=== PATIENT | female | born 1935 | race Caucasian/White ===

== ENCOUNTER 2017-11-24 16:04 | Emergency (ER) | payer MEDICARE, OTHER ==
[~2017-11-24] VITALS: Ht 165.1 cm; Wt 81.2 kg
[~2017-11-24 16:04] MED LIST: AMLODIPINE BESYL5 MG PO; ASPIRIN EC81 MG PO; B-121000 MC2 PO; BENADRYL25 MG PO; BIOTIN10 MG PO; BIOTIN300 MCG PO; BUSPIRONE HCL10 MG PO; CALCIUM500 M1 PO; CEPHALEXIN500 MG PO; CITRACAL + D M1 EACH PO; CITRACAL-VIT D1 EAC2 PO; CLARITIN10 M2 PO; COSAMIN DS CAP1 EAC1 PO; COSAMIN DS TAB1 EACH PO; FUROSEMIDE20 MG PO; GABAPENTIN100 MG PO; GARLIC OIL1000 MG PO; GARLIC1 EACH PO; L-LYSINE500 M1 PO; LEVOTHYROXINE125 MCG PO; LEXAPRO10 MG PO; LISINOPRIL10 MG PO; LUNESTA3 MG PO; MELATONIN3 MG PO; MELATONIN5 M2 PO; METOPROLOL SUCC25 MG PO; MIRALAX119 GM PO; NORCO 5-325 TA1 EACH PO; NOVAFERRUM125 MG/5 M PO; OCUVITE TABLET1 EAC1 PO; OMEPRAZOLE20 MG PO; PEPCID40 MG PO; SERTRALINE HCL50 MG PO; SLOW-MAG71.5 MG PO; SYNTHROID88 MCG PO; TRICOR145 MG PO; VITAMIN D5000 UNIT PO
[2017-11-24] MEDS ORDERED: LIPITOR40 MG PO (16:48)
[2017-11-24] MEDS ORDERED: NORCO 7.5-3251 EACH PO (16:50)
--- NOTE | 2017-11-24 20:47 | EKG ---
[facility] [address] [facility] [place] [address] Signed Sinus bradycardia with premature atrial complexes Possible Left atrial enlargement Borderline ECG When compared with ECG of 18-SEP-2016 11:57, No significant change was found Confirmed by KAVON DE GUZMAN MD ([id number]) on 11/24/2017 8:47:47 PM Electronically Signed By: KAVON DE GUZMAN MD 11/24/17 2047 PATIENT NAME: PARMINDERJACLYNMARGARET ACOSTAE Electrocardiogram DATE OF : 39 PHYSICIAN: KAVON DE GUZMAN MD REPORT #: [id number] REPORT IS CONFIDENTIAL AND NOT TO BE RELEASED WITHOUT AUTHORIZATION
== END 2017-11-24 17:40 | disposition home or self-care (01) ==
LOC: ED 16:04
DX: R41.0 Disorientation, unspecified (principal); R07.89 Other chest pain; T42.6X5A Adverse effect of other antiepileptic and sedative-hypnotic drugs, initial encounter; G47.00 Insomnia, unspecified; Z87.891 Personal history of nicotine dependence; Z91.041 Radiographic dye allergy status; Z88.0 Allergy status to penicillin; Z88.6 Allergy status to analgesic agent; Z79.82 Long term (current) use of aspirin; Z79.899 Other long term (current) drug therapy
CPT/HCPCS: 71045; 80048; 84484; 85025; 93005; 93010; 99285

== ENCOUNTER 2018-08-01 15:28 | Emergency (ER) | payer MEDICARE, OTHER ==
[~2018-08-01] VITALS: Ht 165.1 cm; Wt 83.5 kg
--- OUTSIDE RECORDS SUMMARY | ~2018-08-01 | XMS | Clinical Summary ---
Demographics + + + | Address | [address] | | | [place] [address] | + + + | Home Phone | | + + + | Preferred Language | Unknown | + + + | Marital Status | Single | + + + | Druze Affiliation | Unknown | + + + | Race | Unknown | + + + | Ethnic Group | Other Race | + + + Author + + + | Author | NON REVENUE LOCATIONS | + + + | Organization | NON REVENUE LOCATIONS | + + + | Address | Unknown | + + + | Phone | Unavailable | + + + Support + + +---------+ + | Name | Relationship | Address | Phone | + + +---------+ + | NONE,NONE | ECON | Unknown | Unavailable | + + +---------+ + Care Team Providers + +------+ + | Care Realty Specialist Name | Role | Phone | + +------+ + PP | Unavailable | + +------+ + Source Comments KULDIP is fully live on both [facility] Ambulatory and [facility] InPatient.[facility] Allergies Not on File Current Medications Not on file Active Problems Not on file Social History + +-------+ +--------+------+ | Tobacco [...] on file | | + + + Plan of Treatment + + + + + | Health Maintenance | Due Date | Last Done | Comments | + + + + + | Pneumococcal (Adult) | | | | | (1 of 2 - PCV13) | 3 | | | + + + + + | Influenza (Flu) | | | | | vaccination (#1) | 8 | | | + + + + + Results Not on filefrom Last 3 Months Insurance + +--------+ +--------+ + + | Payer | Benefi | Subscriber | Type | Phone | Address | | | t Plan | ID | | | | | | / | | | | | | | Group | | | | | + +--------+ +--------+ + + | MEDICARE | MEDICA | xxxxxxxxxx | Medica | [phone]- | [address] | | | RE A & | | re | [phone] | [place] [address] | | | B | | | | | + +--------+ +--------+ + + | MODA | MODA | xxxxxxxxx | PPO | [phone] [address] [address] | | | [place] | | | [phone] | [facility] [place] [address] | | | [place] | | | | | + +--------+ +--------+ + + + +--------+ +--------+ + + | Guarantor Name | Accoun | Relation to | Date | Phone | Billing Address | | | t Type | Patient | of | | | | | | | | | | + +--------+ +--------+ + + | JACLYN ZURITA | Person | Self [birth year] | Home: | [address] | | | al/Fam | | [phone] | [phone] | [place] [address] | | | saba | | | [address] | | + +--------+ +--------+ + +"
--- OUTSIDE RECORDS SUMMARY | ~2018-08-01 | XMS | Encounter Summary ---
Demographics + + + | Address | [address] | | | [place] [address] | + + + | Home Phone [...] | Author | [facility] | | | and [place] | + + + | Organization | [facility] | | | and [place] | + + + | Address | Unknown | + + + | Phone | Unavailable | + + + Support + + + + + | Name | Relationship | Address | Phone | + + + + + | Osmin Jackson | ECON | [address] | | | | | [place] [address] | | + + + + + | Hunter Jackson | ECON | [place], [place] | | + + + + + | Wes Jackson | ECON | [place], [place] | | + + + + + | Oziel Jackson | ECON | [place] | | + + + + + Care Team Providers + +------+ + | Care Senior Court Office Assistant Name | Role | Phone | + [...] Description | +--------+---------+ + + + | 07/27/ | Office | PM [place] | Ulysses Jensen, | Arthritis of | | 2019 | Visit | ORTHOPEDIC SURGERY | MD [address] [facility] | carpometacarpal | | | | [address] [facility] | [place], [place] | (CMC) joint of right | | | | [place], [place] | [address] | thumb (Primary Dx); | | | | [address] | | Rotator cuff tear | | | | [phone] | | arthropathy of right | | [...] + +---------+ + | Alcohol Use | Drinks/We | oz/Week | Comments | | | ek | | | + + +---------+ + | No | 0 | 0.0 | | | | Standard | | | | | drinks or | | | | | | | | | | equivalen | | | | | t | | | + + +---------+ + + + + | Sex Assigned at | Date Recorded | | | | + + + | Not on file | | + + + as of this encounter Last Filed Vital Signs + + + + | Vital Sign | Reading | Time Taken | + + + + | Blood Pressure | - | - | + + + + | Pulse | - | - | + + + + | Temperature | - | - | + + + + | Respiratory Rate | - | - | + + + + | Oxygen Saturation | - | - | + + + + | Inhaled Oxygen | - | - | | Concentration | | | + + + + | Weight | 82.6 kg (182 lb) | 07/27/2018 1103 PDT | + + + + | Height | 165.1 cm (5' 5") | 07/27/2018 1103 PDT | + + + + | Body Mass Index | 30.29 | 07/27/2018 1103 PDT | + + + + in this encounter Progress Notes Ulysses Jensen MD - 07/27/2018 1130 PDTPatient returns and wishes to have right shoulder and right first cmc injections Under sterile conditions today I injected her first cmc joint right thumb with celestone 1/ 2 cc and naropin 1/2 cc Under sterile conditions I then injected her right shoulder subacromial space with kenalog 40mg and naropin 3cc Will return as neededin this encounter Plan of Treatment +--------+---------+ + + + | Date | Type | Specialty | Care Team | Description | +--------+---------+ + + + | 10/28/ | Office | Orthopedic Surgery | Ulysses Jensen, | | | 2018 | Visit | | MD Danny FLANNERY | | | | | | [place] | | | | | | [address] | | | | | | | | +--------+---------+ + + + | 11/30/ | Office | Cardiology | Yesi, | | | 2019 | Visit | | JOSE ALBERTO Linder [address] | | | | | | [place], | | | | | | [place] [address] | | | | | | [phone] | | | | | | | | +--------+---------+ + + + as of this encounter Visit Diagnoses + + | Diagnosis | + + | Arthritis of carpometacarpal (CMC) joint of right thumb - Primary | + + | Rotator cuff tear arthropathy of right shoulder | + + | Traumatic arthropathy, shoulder region | + + Administered Medications + +--------+ +------+------+ + | Medication Order | MAR | Action | Dose | Rate | Site | | | Action | Date | | | | + +--------+ +------+------+ + | betamethasone (CELESTONE | Given | | 6 mg | | Other | | SOLUSPAN) injection 6 mg 6 mg, | | 9 11:37 | | | (Comment | | Intramuscular, ONCE, 07/27/18 | | PDT | | | ) | | at 1200, For 1 dose, Shake well. | | | | | | | Not for IV use. | | | | | | + +--------+ +------+------+ + +---+---+ | | | +---+---+ + +-------+ +-------+---+ + | triamcinolone acetonide | Given | | 40 mg | | Shoulder | | (KENALOG-40) 40 mg/mL injection | | 9 11:37 | | | -Right | | 40 mg 40 mg, Intra-articular, | | PDT | | | | | ONCE, 07/27/18 at 1200, For 1 | | | | | | | dose, Shake well. Not for IV use. | | | | | | + +-------+ +-------+---+ + +---+---+ | | | +---+---+ in this encounter
--- OUTSIDE RECORDS SUMMARY | ~2018-08-01 | XMS | Encounter Summary ---
Demographics + + + | Address | [address] | | | [place] [address] | + + + | Home Phone [...] + | Author | [facility] | | | and [place] | + + + | Organization | [facility] | | | and [...] | | | | | [place] [address] | | + + + + + | Hunter Jackson | ECON | [place], [place] | | + + + + + | Wes Jackson | ECON | [place], [place] | | + + + + + | Oziel Jackson | ECON | [place] | | + + + + + Care Team Providers + +------+ + | Care Receptionist Scheduler Name | Role | Phone | [...] + + | 06/01/ | Office | [facility] [place] | Yesi, | TIA; Valvular heart | | 2019 | Visit | CARDIOLOGY [address] | JOSE ALBERTO Linder [address] | disease; Epistaxis; | | | | [place], | [place], | Murmur; Essential | | | | [place] [address] | [place] [address] | hypertension with | | | | [phone] | [phone] | goal blood pressure | | | | | | less than 130/80; | | | | | | Coronary artery | | | | | | disease involving | | | | | | [place] coronary | | | | | | artery of [place] | | | | | | heart with unstable | | | | | | angina pectoris | | | | | | (FORMERLY [facility]); Chest pain, | | | | | [...] | Blood Pressure | 140/58 | 06/01/2018 1045 PST | + + + + | Pulse | 53 | 06/01/2018 1045 PST | + + + + | Temperature | - | - | + + + + | Respiratory Rate | 16 | 06/01/2018 1045 PST | + + + + | Oxygen Saturation | - | - | + + + + | Inhaled Oxygen | - | - | | Concentration | | | + + + + | Weight | 82.8 kg (182 lb 8.7 | 06/01/2018 1045 PST | | | oz) | | + + + + | Height | 165.1 cm (5' 5") | 06/01/2018 1045 PST | + + + + | Body Mass Index | 30.38 | 06/01/2018 1045 PST | + + + + in this encounter Progress Notes Niyah Key ARNP - 06/01/2018 1045 PSTFormatting of this note may be different from the original. PATIENT NAME: Soumya Jackson [...] cervical Cervical radiculopathy Coronary artery disease involving [place] coronary artery of [place] heart with unstable angina pectoris Stress hyperglycemia [...] RESULTS reviewed during visit today primarily from [facility]: LIPID Lab Results Component Value [...] BNPEX 63 09/18/2016 I reviewed records from [facility] for office visit on 04/2018 whic h is summarized in the HPI. RESULTS- I reviewed reports from [facility]: No results found. Above data and testing is reviewed this visit; testing below is historical data unless othe rwise specified. ASSESSMENT: 1. Coronary artery disease A. Seen at [facility] they had EKG and sent her home stating it was GERD B. Seen in the emergency room at [facility] for chest pain. e was schedule for stress test and discharged home. C. Stress Test 05/16/16, is maximal asymptomatic stress test, [facility] very poor function status, achieving maximal [...] central AI, no , trace TR, trace MD, normal aorta other than mild calcification at [...] is in class II of th e [place] [employer] functional class. There are no [...] this chart may have been created with TrueFacet voice recognition software. Occasi onal wrong-word or sound-alike substitutions may have occurred due to the inherent doe itations of voice recognition software. Please read the chart carefully and recognize, using context, where these substitutions have occurred. in this encounter Plan of Treatment +--------+---------+ + + + | Date | Type | Specialty | Care Team | Description | +--------+---------+ + + + | 10/28/ | Office | Orthopedic Surgery | Ulysses Jensen, | | | 2018 | Visit | | MD Danny PARHAM | | | | | | [place] | | | | | | [address] | | | | | | | | +--------+---------+ + + + | 11/30/ | Office | Cardiology | Yesi, | | | 2018 | Visit | | JOSE ALBERTO Linder [address] | | | | | | [place], | | | | | | [place] [address] | | | | | | [phone] | | | | | | | | +--------+---------+ + + + as of this encounter Procedures + +--------+ + + + | Procedure Name | Priori | Date/Time | Associated Diagnosis | Comments | | | ty | | | | + +--------+ + + + | ECG 12 LEAD | Routin | 06/01/2018 | Essential | Results for this | | | e | 1109 PST | hypertension with | procedure are in the | | | | | goal blood pressure | results section. | | | | | less than 130/80 | | | | | | Coronary artery | | | | | | disease involving | | | | | | [place] coronary | | | | | | artery of [place] | | | | | | heart with unstable | | | | | | angina pectoris | | | | | | (FORMERLY [facility]) Chest pain, | | | | | | unspecified type | | + +--------+ + + + in this encounter Results ECG 12 lead (06/01/2018 1109) + + + + + | Component | Value | Ref Range | Performed At | + + + + + | VENTRICULAR RATE EKG | 53 | BPM | [facility] | + + + + + | ATRIAL RATE | 53 | BPM | [facility] | + + + + + | P-R INTERVAL | 140 | ms | [facility] | + + + + + | QRS DURATION | 88 | ms | [facility] | + + + + + | Q-T INTERVAL | 442 | ms | [facility] | + + + + + | Q-T INTERVAL | 414 | ms | [facility] | | (CORRECTED) | | | | + + + + + | P WAVE AXIS | 57 | degrees | [facility] | + + + + + | QRS AXIS | 57 | degrees | [facility] | + + + + + | T AXIS | 67 | degrees | [facility] | + + + + + | INTERPRETATION TEXT | Sinus | | [facility] | | | bradycardiaPossible Left | | | | | atrial | | | | | enlargementBorderline | | | | | ECGWhen compared with | | | | | ECG of 16-OCT-2017 | | | | | 16:23,premature | | | | | supraventricular | | | | | complexes are no longer | | | | | presentNonspecific T | | | | | wave abnormality no | | | | | longer evident in | | | | | Inferior leadsT wave | | | | | inversion less evident | | | | | in Anterolateral | | | | | leadsConfirmed by | | | | | CHRISTOPHER SIMMS MD | | | | | [id number]) on 06/01/2018 | | | | | 4:18:00 PM | | | + + + + + + + + | Narrative | Performed At | + + + | | | + + + + +---------+ + + | Performing | Address | City/State/Zipcode | Phone Number | | Organization | | | | + +---------+ + + | [facility] | | | | + +---------+ + + in this encounter Visit Diagnoses + + | Diagnosis | + + | TIA | + + | Unspecified transient cerebral ischemia | + + | Valvular heart disease | + + | Endocarditis, valve unspecified, unspecified cause | + + | Epistaxis | + + | Murmur | + + | Undiagnosed cardiac murmurs | + + | Essential hypertension with goal blood pressure less than 130/80 | + + | Coronary artery disease involving [place] coronary artery of [place] heart with unstable | | angina pectoris (HCC) | + + | Chest pain, unspecified type | + + | Hyperlipidemia, mixed | + + | Mixed hyperlipidemia | + +
--- OUTSIDE RECORDS SUMMARY | ~2018-08-01 | XMS | Encounter Summary ---
Demographics + + + | Address | [address] | | | [place] [address] | + + + | Home Phone [...] + | Author | [facility] | | | and [place] | + + + | Organization | [facility] | | [...] | | | | | [place] [address] | | + + + + + | Hunter Jackson | ECON | [place], [place] | | + + + + + | Wes Jackson | ECON | [place], [place] | | + + + + + | Oziel Jackson | ECON | [place] | | + + + + + Care Team Providers + +------+ + | Care Inspector Soldering Name | Role | Phone | + [...] + + | 05/29/ | Telephone | [facility] | Yesi | JENELLE | | 2019 | | [place] [address] | JOSE ALBERTO Linder [address] | | | | | [place], | [place], | | | | | [place] [address] | [place] [address] | | | | | [phone] | [phone] | | | | | | | [...] + + + as of this encounter Plan of Treatment +--------+---------+ + + + | Date | Type | Specialty | Care Team | Description | +--------+---------+ + + + | 10/28/ | Office | Orthopedic Surgery | Ulysses Jensen, | | | 2018 | Visit | | MD Danny FLANNERY | | | | | | [place] | | | | | | [address] | | | | | | | | +--------+---------+ + + + | 11/30/ | Office | Cardiology | Yesi, | | | 2018 | Visit | | JOSE ALBERTO Linder [address] | | | | | | [place], | | | | | | [place] [address] | | | | | | [phone] | | | | | | | | +--------+---------+ + + + as of this encounter Visit Diagnoses Not on filein this encounter"
--- OUTSIDE RECORDS SUMMARY | ~2018-08-01 | XMS | Encounter Summary ---
Demographics + + + | Address | [address] | | | [place] [address] | + + + | Home Phone [...] Author | [facility] | | | and [place] | + + + | Organization | [facility] [...] | | | | | [place] [address] | | + + + + + | Hunter Jackson | ECON | [place], [place] | | + + + + + | Wes Jackson | ECON | [place], [place] | | + + + + + | Oziel Jackson | ECON | [place] | | + + + + + Care Team Providers + +------+ + | Care Africana Studies Professor Name | Role | Phone | + +------+ + | Kellie Gunderson | PCP | | + +------+ + Encounter Details +--------+ + + + + | Date | Type | Department | Care Team | Description | +--------+ + + + + | 06/01/ | Abstract | [facility] | Yesi, | | | 2018 | | [address] | JOSE ALBERTO [address] | | | | | [place], | [place], | | | | | [place] [address] | [place] [address] | | | | | [phone] | [phone] | | | | | | | [...] W | | | | | | [place] | | | | | | [place] [address] | | | | | | [phone] | | | | | | | [...] for this | | | e | 0000 PST | | procedure are in the | | | | | | results section. | + +--------+ + + + | EXTERNAL LAB: | Routin | 05/30/2018 | | Results for this | | GLUCOSE | e | 0000 PST | | procedure are in the | | | | | | results section. | + +--------+ + + + | EXTERNAL LAB: ALT | Routin | 05/30/2018 | | Results for this | | | e | 0000 PST | | procedure are in the | | | | | | results section. | + +--------+ + + + | EXTERNAL LAB: AST | Routin | 05/30/2018 | | Results for this | | | e | 0000 PST | | procedure are in the | | | | | | results section. | + +--------+ + + + | EXTERNAL LAB: | Routin | 05/30/2018 | | Results for this | | ALKALINE PHOSPHATASE | e | 0000 PST | | procedure are in the | | | | | | results section. | + +--------+ + + + | EXTERNAL LAB: | Routin | 05/30/2018 | | Results for this | | BILIRUBIN, TOTAL | e | 0000 PST | | procedure are in the | | | | | | results section. | + +--------+ + + + | EXTERNAL LAB: | Routin | 05/30/2018 | | Results for this | | ALBUMIN | e | 0000 PST | | procedure are in the | | | | | | results section. | + +--------+ + + + | EXTERNAL LAB: | Routin | 05/30/2018 | | Results for this | | PROTEIN, TOTAL | e | 0000 PST | | procedure are in the | | | | | | results section. | + +--------+ + + + | EXTERNAL LAB: | Routin | 05/30/2018 | | Results for this | | CALCIUM | e | 0000 PST | | procedure are in the | | | | | | results section. | + +--------+ + + + | EXTERNAL LAB: CARBON | Routin | 05/30/2018 | | Results for this | | DIOXIDE | e | 0000 PST | | procedure are in the | | | | | | results section. | + +--------+ + + + | EXTERNAL LAB: | Routin | 05/30/2018 | | Results for this | | CHLORIDE | e | 0000 PST | | procedure are in the | | | | | | results section. | + +--------+ + + + | EXTERNAL LAB: | Routin | 05/30/2018 | | Results for this | | POTASSIUM | e | 0000 PST | | procedure are in the | | | | | | results section. | + +--------+ + + + | EXTERNAL LAB: SODIUM | Routin | 05/30/2018 | | Results for this | | | e | 0000 PST | | procedure are in the | | | | | | results section. | + +--------+ + + + | EXTERNAL LAB: CBC | Routin | 05/30/2018 | | Results for this | | | e | 0000 PST | | procedure are in the | | | | | | results section. | + +--------+ + + + | EXTERNAL LAB: | Routin | 05/30/2018 | | Results for this | | TRIGLYCERIDES | e | 0000 PST | | procedure are in the | | | | | | results section. | + +--------+ + + + | EXTERNAL LAB: | Routin | 05/30/2018 | | Results for this | | CHOLESTEROL, HDL | e | 0000 PST | | procedure are in the | | | | | | results section. | + +--------+ + + + | EXTERNAL LAB: | Routin | 05/30/2018 | | Results for this | | CHOLESTEROL, TOTAL | e | 0000 PST | | procedure are in the | | | | | | results section. | + +--------+ + + + | EXTERNAL LAB: | Routin | 05/30/2018 | | Results for this | | CHOLESTEROL, LDL | e | 0000 PST | | procedure are in the | | DIRECT | | | | results section. | + +--------+ + + + | EXTERNAL LAB: EGFR | Routin | 05/30/2018 | | Results for this | | | e | 0000 PST | | procedure are in the | | | | | | results section. | + +--------+ + + + | EXTERNAL LAB: | Routin | 05/30/2018 | | Results for this | | CREATININE | e | 0000 PST | | procedure are in the | | | | | | results section. | + +--------+ + + + | LIPID PANEL | Routin | 05/30/2018 | | Results for this | | | e | 0000 PST | | procedure are in the | | | | | | results section. | + +--------+ + + + | CBC WITH | Routin | 05/30/2018 | | Results for this | | DIFFERENTIAL | e | 0000 PST | | procedure are in the | | | | | | results section. | + +--------+ + + + | COMPREHENSIVE | Routin | 05/30/2018 | | Results for this | | METABOLIC PANEL | e | 0000 PST | | procedure are in the | | | | | | results section. | + +--------+ + + + in this encounter Results CBC with Differential (05/30/2018) + + + + + | Component | Value | Ref Range | Performed At | + + + + + | MCH | 34.0 (A) | 27.0 - 33.0 pg | | + + + + + | MCHC | 33.0 | 30.0 - 36.0 % | | + + + + + | BASOPHILS % | 1.0 | 0.0 - 2.0 % | | + + + + + + + | Specimen | + + | Blood | + + Comprehensive Metabolic Panel (05/30/2018) + +---------+ + + | Component | Value | Ref Range | Performed At | + +---------+ + + | Anion Gap | 15 | 7 - 21 mmol/L | | + +---------+ + + | Bun/Creatinine | 19.7 | 6.0 - 28.6 | | + +---------+ + + | Globulin | 3.7 (A) | 1.8 - 3.5 | | + +---------+ + + | Albumin/Globulin | 1.2 | 1.1 - 2.4 | | | Ratio | | | | + +---------+ + + + + | Specimen | + + | Blood | + + Lipid Panel (05/30/2018) + +-------+ + + | Component | Value | Ref Range | Performed At | + +-------+ + + | VLDL Cholesterol Jaime | 12 | 4 - 40 | | + +-------+ + + | Chol/HDL Ratio | 1.9 | 4.4 | | + +-------+ + + | Non-HDL Cholesterol | 76 | 130 | | + +-------+ + + + + | Specimen | + + | Blood | + + External Lab: BUN (05/30/2018) + +-------+ + + | Component | Value | Ref Range | Performed At | + +-------+ + + | BUN, External | 13 | 6 - 23 | | + +-------+ + + External Lab: Glucose (05/30/2018) + +-------+ + + | Component | Value | Ref Range | Performed At | + +-------+ + + | Glucose, External | 99 | 70 - 100 | | + +-------+ + + External Lab: ALT (05/30/2018) + +-------+ + + | Component | Value | Ref Range | Performed At | + +-------+ + + | ALT, External | 28 | 7 - 52 | | + +-------+ + + External Lab: AST (05/30/2018) + +-------+ + + | Component | Value | Ref Range | Performed At | + +-------+ + + | AST, External | 32 | 13 - 39 | | + +-------+ + + External Lab: Alkaline Phosphatase (05/30/2018) + +-------+ + + | Component | Value | Ref Range | Performed At | + +-------+ + + | ALP, External | 112 | 31 - 130 | | + +-------+ + + External Lab: Bilirubin, Total (05/30/2018) + +-------+ + + | Component | Value | Ref Range | Performed At | + +-------+ + + | Bilirubin, Total, | 0.6 | 0 - 1.2 | | | External | | | | + +-------+ + + External Lab: Albumin (05/30/2018) + +-------+ + + | Component | Value | Ref Range | Performed At | + +-------+ + + | Albumin, External | 4.4 | 3.5 - 5 | | + +-------+ + + External Lab: Protein, Total (05/30/2018) + +-------+ + + | Component | Value | Ref Range | Performed At | + +-------+ + + | Protein, Total, | 8.1 | 6 - 8.3 | | | External | | | | + +-------+ + + External Lab: Calcium (05/30/2018) + +-------+ + + | Component | Value | Ref Range | Performed At | + +-------+ + + | Calcium, External | 9.9 | 8.5 - 10.3 | | + +-------+ + + External Lab: Carbon Dioxide (05/30/2018) + +-------+ + + | Component | Value | Ref Range | Performed At | + +-------+ + + | Carbon Dioxide, | 28 | 19 - 31 | | | External | | | | + +-------+ + + External Lab: Chloride (05/30/2018) + +-------+ + + | Component | Value | Ref Range | Performed At | + +-------+ + + | Chloride, External | 96 | 95 - 112 | | + +-------+ + + External Lab: Potassium (05/30/2018) + +-------+ + + | Component | Value | Ref Range | Performed At | + +-------+ + + | Potassium, External | 4.3 | 3.6 - 5.1 | | + +-------+ + + External Lab: Sodium (05/30/2018) + +-------+ + + | Component | Value | Ref Range | Performed At | + +-------+ + + | Sodium, External | 135 | 132 - 143 | | + +-------+ + + External Lab: CBC (05/30/2018) + + + + + | Component | Value | Ref Range | Performed At | + + + + + | WBC, External | 7.7 | 4.5 - 11 | | + + + + + | HGB, External | 14.4 | 12 - 16 | | + + + + + | HCT, External | 43.3 | 35 - 45 | | + + + + + | PLT, External | 389 | 140 - 440 | | + + + + + | Neutrophils %, | 65.9 | 39 - 80 | | | External | | | | + + + + + | Lymphocytes %, | 20.6 (A) | 24 - 44 | | | External | | | | + + + + + | Monocytes %, | 8.4 | 0 - 12 | | | External | | | | + + + + + | Eosinophils %, | 4.1 | 0 - 6 | | | External | | | | + + + + + | RBC, External | 4.23 | 3.8 - 5.1 | | + + + + + | MCV, External | 102 (A) | 81 - 99 | | + + + + + | RDW, External | 13.1 | 10.5 - 15 | | + + + + + External Lab: Triglycerides (05/30/2018) + +-------+ + + | Component | Value | Ref Range | Performed At | + +-------+ + + | Triglycerides, | 59 | 30 - 150 | | | External | | | | + +-------+ + + + + | Specimen | + + | Blood | + + External Lab: Cholesterol, HDL (05/30/2018) + +-------+ + + | Component | Value | Ref Range | Performed At | + +-------+ + + | HDL Cholesterol, | 82 | 40 mg/dl | | | External | | | | + +-------+ + + + + | Specimen | + + | Blood | + + External Lab: Cholesterol, Total (05/30/2018) + +-------+ + + | Component | Value | Ref Range | Performed At | + +-------+ + + | Cholesterol, Total, | 158 | 200 mg/dl | | | External | | | | + +-------+ + + + + | Specimen | + + | Blood | + + External Lab: Cholesterol, LDL Direct (05/30/2018) + +-------+ + + | Component | Value | Ref Range | Performed At | + +-------+ + + | LDL Cholesterol, | 64 | 100 | | | Direct, External | | | | + +-------+ + + + + | Specimen | + + | Blood | + + External Lab: eGFR (05/30/2018) + +-------+ + + | Component | Value | Ref Range | Performed At | + +-------+ + + | eGFR, External | 86 | 60 | | + +-------+ + + + + | Specimen | + + | Blood | + + External Lab: Creatinine (05/30/2018) + + + + + | Component | Value | Ref Range | Performed At | + + + + + | Creatinine, External | 0.66 (A) | 0.7 - 1.11 | | + + + + + + + | Specimen | + + | Blood | + + in this encounter Visit Diagnoses Not on filein this encounter"
--- OUTSIDE RECORDS SUMMARY | ~2018-08-01 | XMS | Encounter Summary ---
Demographics + + + | Address | [address] | | | [place] [address] | + + + | Home Phone [...] | [facility] | | | and [place] | + + + | Organization | [facility] [...] | | | | | [place] [address] | | + + + + + | Hunter Jackson | ECON | [place], [place] | | + + + + + | Wes Jackson | ECON | [place], [place] | | + + + + + | Oziel Jackson | ECON | [place] | | + + + + + Care Team Providers + +------+ + | Care Cloth Checker Name | Role | Phone | + +------+ + | Kellie Gunderson | PCP | | + +------+ + Encounter Details +--------+ + + + + | Date | Type | Department | Care Team | Description | +--------+ + + + + | 06/01/ | Abstract | [facility] | Yesi, | | | 2018 | | [address] | JOSE AL[address]ERTO [address] | | | | | [place], | [place], | | | | | [place] [address] | [place] [address] | | | | | [phone] | [phone] | | | | | | | [...] [address] | | | | | | [place] [address] | | | | | | [place] [address] | | | | | | [phone] | | | | | | | [...]
--- OUTSIDE RECORDS SUMMARY | ~2018-08-01 | XMS | Encounter Summary ---
Demographics + + + | Address | [address] | | | [place] [address] | + + + | Home Phone [...] | Author | [facility] | | | and [place] | + + + | Organization | [facility] | [...] | | | | | [place] [address] | | + + + + + | Hunter Jackson | ECON | [place], [place] | | + + + + + | Wes Jackson | ECON | [place], [place] | | + + + + + | Oziel Jackson | ECON | [place] | | + + + + + Care Team Providers + +------+ + | Care Freight Shipping Agent Name | Role | Phone | [...] + | 06/25/ | Telephone | [facility] | Yesi, | Other (blood | | 2019 | | CARDIOLOGY [address] | JOSE AL[address]ERTO [address] | pressure low, | | | | [place], | [place], | question about | | | | [place] [address] | [place] [address] | medications) | | | | [phone] | [phone] | | | | | | | [...] Description | +--------+---------+ + + + | 06/19/ | Office | Orthopedic Surgery | Ulysses Jensen, | | | 2018 | Visit | | MD Danny FLANNERY | | | | | | [place] [address] | | | | | | [phone] | | | | | | | | +--------+---------+ + + + | 11/30/ | Office | Cardiology | Yesi, | | | 2018 | Visit | | JOSE ALBERTO [address] | | | | | | [place], | | | | | | [place] [address] | | | | | | [phone] | | | | | | | | +--------+---------+ + + + as of this encounter Visit Diagnoses Not on filein this encounter"
--- OUTSIDE RECORDS SUMMARY | ~2018-08-01 | XMS | Encounter Summary ---
Demographics + + + | Address | [address] | | | [place] [address] | + + + | Home Phone [...] Author | [facility] | | | and [place] | + + + | Organization | [facility] | | [...] | | | | | [place] [address] | | + + + + + | Hunter Jackson | ECON | [place], [place] | | + + + + + | Wes Jackson | ECON | [place], [place] | | + + + + + | Oziel Jackson | ECON | [place] | | + + + + + Care Team Providers + +------+ + | Care Refractory Tile Helper Name | Role | Phone | [...] | pressure low, | | | | [place], | [place], | question about | | | | [place] [address] | [place] [address] | medications) | | | | [phone] | [phone] | | | | | | | [...] STREETER | | | | | | [phone] | | | | | | | | +--------+---------+ + + + | 11/30/ | Office | Cardiology | Yesi, | | | 2018 | Visit | | JOSE ALBERTO [address] | | | | | | [place], | | | | | | [place] [address] | | | | | | [phone] | | | | | | | | +--------+---------+ + + + as of this encounter Visit Diagnoses Not on filein this encounter"
--- OUTSIDE RECORDS SUMMARY | ~2018-08-01 | XMS | Clinical Summary ---
Demographics + + + | Address | [address] | | | [place] [address] | + + + | Home Phone | | + + + | Preferred Language | Unknown | + + + | Marital Status | Single | + + + | Congregation Affiliation [...] Comments [facility] is fully live on both [facility] and [facility] Allergies Not on File Current Medications [...] | Medica | [phone] | [phone] | | | RE A & | | re | [phone] | [place] [address] | | | B | | | | | + +--------+ +--------+ + + | MODA | MODA | [phone] | PPO | [phone] [address] [address] | | | [place] | | | [phone] | [facility] [place] [address] | | | [place] | | | [...] | 1936 | [phone] | [place] [address] | | | saba | | | [phone] | | + +--------+ +--------+ + +"
--- OUTSIDE RECORDS SUMMARY | ~2018-08-01 | XMS | Clinical Summary ---
Demographics + + + | Address | [address] | | | [place] [address] | + + + | Home Phone [...] [address] | | | | | [place] [address] | | + + + + + | Hunter Jackson | ECON | [place], [place] | | + + + + + | Wes Jackson | ECON | [place], [place] | | + + + + + | Oziel Jackson | ECON | [place] | | + + + + + Care Team Providers + +------+ + | Care Middle [employer] Technology Teacher Name | Role | Phone | + +------+ + | Kellie Gunderson | PP | | + +------+ + Allergies + [...] | Other (See Comments) | Medium | 06/27/20 | Duodenal Ulcer | | | | [...] | + + + + + + Current Medications + + +---------+---------+------+------+-------+ | Prescription | Sig. | Disp. | Refills | Star | End | Statu | | | | | | t | Date | s | | | | | | Date | | | + + +---------+---------+------+------+-------+ | L-Lysine HCl 500 | Take 500 mg by mouth | | | 01/10 | | Activ | | MG CAPS | Daily. | | | 07/29 | | e | | | | | | 12 | | | + + +---------+---------+------+------+-------+ | Melatonin | Take 5 mg by mouth | | | 09/1 | | Activ | | (MELATONIN MAXIMUM | Daily as needed. | | | 3/20 | | e | | STRENGTH) 5 MG TABS | | | | 12 | | | + + +---------+---------+------+------+-------+ | magnesium-calcium | Take 71.5-119 mg by | | | 09/1 | | Activ | | carbonate (SLOW-MAG) | mouth Daily. | | | 3/20 | | e | | 71.5-119 MG TBEC | | | | 12 | | | + + +---------+---------+------+------+-------+ | Calcium | TABS Take one by | | | 09/1 | | Activ | | Citrate-Vitamin D | mouth three times | | | 3/20 | | e | | (CITRACAL MAXIMUM | daily. | | | 12 | | | | PO) | | | | | | | + + +---------+---------+------+------+-------+ | Multiple | Take by mouth | | | | | Activ | | Vitamins-Minerals | Daily. | | | | | e | | (OCUVITE ADULT 50+) | | | | | | | | CAPS | | | | | | | + + +---------+---------+------+------+-------+ | vitamin B-12 | Take 1,000 mcg by | | | | | Activ | | (CYANOCOBALAMIN) | mouth Daily. | | | | | e | | 1000 MCG tablet | | | | | | | + + +---------+---------+------+------+-------+ | Cholecalciferol | Take 5,000 Units by | | | 01/10 | | Activ | | (D-5000 PO) | mouth Daily. | | | 07/29 | | e | | | | | | 12 | | | + + +---------+---------+------+------+-------+ | GARLIC | Take 1,000 mg by | | | | | Activ | | | mouth Daily. | | | | | e | + + +---------+---------+------+------+-------+ | BIOTIN PO | Take 500 mg by mouth | | | | | Activ | | | Daily. | | | | | e | + + +---------+---------+------+------+-------+ | diclofenac | Apply 1 g topically | 100 g | 0 | 09/ | | Activ | | (VOLTAREN) 1% [...] | | | | | + + +---------+---------+------+------+-------+ | omeprazole | Take 20 mg by mouth | | | 04/0 | | Activ | | (PRILOSEC) 20 mg | every morning | | | 4/20 | | e | | capsule | (before breakfast). | | | 17 | | | + + +---------+---------+------+------+-------+ | aspirin 81 mg | Take 2 tablets by | 30 | 2 | 06/2 | | Activ | | chewable tablet | mouth Daily. | tablet | | 8/20 | | e | | | | | | 17 | | | + + +---------+---------+------+------+-------+ | gabapentin | Take 300 mg by mouth | | | | | Activ | | (NEURONTIN) 300 mg | once. | | | | | e | | capsule | | | | | | | + + +---------+---------+------+------+-------+ | busPIRone (BUSPAR) | Take 5 mg by mouth | | | 04/0 | | Activ | | 5 mg tablet | Daily. Can take | | | 09/28 | | e | | | twice a day if | | | 18 | | | | | needed | | | | | | + + +---------+---------+------+------+-------+ | | Take 1 tablet by | | | 04/0 | | Activ | | HYDROcodone-acetamin | mouth Daily. Takes | | | 20 | | e | | ophen (NORCO) | 1/2 in the AM and | | | 18 | | | | 7.5-325 mg per | 1/2 in the PM | | | | | | | tablet | | | | | | | + + +---------+---------+------+------+-------+ | atorvaSTATin | TAKE ONE TABLET BY | 90 | 3 | 07/1 | | Activ | | (LIPITOR) 40 mg | MOUTH EVERY DAY IN | tablet | | 7/20 | | e | | tablet | THE EVENING | | | 18 | | | + + +---------+---------+------+------+-------+ | lisinopril | TAKE TWO TABLETS BY | 180 | 3 | 08/3 | | Activ | | (PRINIVIL, ZESTRIL) | MOUTH EVERY DAY | tablet | | 0/20 | | e | | 10 mg tablet | | | | 18 | | | + + +---------+---------+------+------+-------+ | DULoxetine | | | | 08/2 | | Activ | | (CYMBALTA) [address] | | | | 1/20 | | e | | capsule | | | | 18 | | | + + +---------+---------+------+------+-------+ | levothyroxine | | | | 08 | | Activ | | (SYNTHROID) 88 mcg | | | | 09/28 | | e | | tablet | | | | 18 | | | + + +---------+---------+------+------+-------+ | furosemide (LASIX) | Take 20 mg by mouth | | | 10/ | | Activ | | 20 mg tablet | Daily. | | | 07/01 | | e | | | | | | 18 | | | + + +---------+---------+------+------+-------+ | Docusate Calcium | Take 1 tablet by | | | | | Activ | | (STOOL SOFTENER PO) | mouth Daily. | | | | | e | + + +---------+---------+------+------+-------+ | B Complex Vitamins | Take 1 tablet by | | | | | Activ | | (VITAMIN B COMPLEX | mouth Daily. | | | | | e | | PO) | | | | | | | + + +---------+---------+------+------+-------+ | isosorbide | Take 1 tablet by | 30 | 3 | /1 | | Activ | | mononitrate (IMDUR) | mouth Daily. | tablet | | 11/28 | | e | | 30 mg ER tablet | | | | 18 | | | + + +---------+---------+------+------+-------+ | amLODIPine | Take 1 tablet by | 90 | 3 | 06/12 | | Activ | | (NORVASC) 5 mg | mouth Daily. | tablet | | 01/29 | | e | | tablet | | | | 19 | | | + + +---------+---------+------+------+-------+ + + +-------+ +------+------+-------+ | Hospital, Clinic, or | Ordered | Route | Frequency | Star | End | Statu | | Other Facility | Dose | | | t | Date | s | | Administered | | | | Date | | | | Medication | | | | | | | + + +-------+ +------+------+-------+ | triamcinolone | 40 mg | IX | ONCE | 07/10 | 07/10 | Ended | | acetonide | | | | 12/29 | 12/29 | | | (KENALOG-40) 40 | | | | 19 | 19 | | | mg/mL injection 40 | | | | | | | | mgIndications: | | | | | | | | Rotator cuff tear | | | | | | | | arthropathy of right | | | | | | | | shoulder | | | | | | | + + +-------+ +------+------+-------+ | betamethasone | 6 mg | IM | ONCE | 07/10 | 07/10 | Ended | | (CELESTONE SOLUSPAN) | | | | 12/29 | 12/29 | | | injection 6 | | | | 19 | 19 | | | mgIndications: | | | | | | | | Arthritis of | | | | | | | | carpometacarpal | | | | | | | | (CMC) joint of right | | | | | | | | thumb | | | | | | | + + +-------+ +------+------+-------+ Active Problems + + + | Problem [...] function, LVEF by gated SPECT 76 %. 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) | | + + + + + [...] | AI, no , trace TR, trace DC, normal aorta other than mild | | [...] + | Inflammation of blood vessels (HCC) | 08/18/2014 | + + + | [...] | + + + | Lacunar infarction (HCC) | 06/04/2010 | + + + | [...] gated SPECT 76 % by | | Christopher Simms MD.Stress Test 07/16/16, shows persantine EKG [...] | +--------+ + + + + | 07/27/ | Office | | Ulysses Jensen, | Arthritis of | [...] shoulder | +--------+ + + + + | 06/25/ | Telephone | | Yesi, | Other (blood | | 2018 | | | JOSE ALBERTO Linder | pressure low, | | | | | | question about | | | | | | medications) | +--------+ + + + + | 06/01/ | Office | | Yesi, | TIA; Valvular heart | | 2018 | Visit | | JOS EALBERTO Linder | disease; Epistaxis; | | | | | | Murmur; Essential | | | | | | hypertension with | | | | | | goal blood pressure | | | | | | less than 130/80; | | | | | | Coronary artery | | | | | | disease involving | | | | | | [place] coronary | | | | | | artery of [place] | | | | | | heart with unstable | | | | | | angina pectoris | | | | | | ([facility]); Chest pain, | | | | | | unspecified type; | | | | | | Hyperlipidemia, | | | | | | mixed | +--------+ + + + + | 06/01/ | Abstract | | Yesi, | | | 2018 | | | JOSE ALBERTO Linder | | +--------+ + + + + | 05/29/ | Telephone | | Yesi | LABS | | 2018 | | | JOSE ALBERTO Linder | | +--------+ + + + + from Last 3 Months Immunizations + + + + | Name | Dates Previously Given | Next Due | + + + [...] on file | | + + + Last Filed Vital Signs + + + + | Vital Sign | Reading | Time Taken | + + + + | Blood Pressure | 140/58 | 06/01/2018 1045 PST | + + + + | Pulse | 53 | 06/01/2018 1045 PST | + + + + | Temperature | 36.4 C (97.5 F) | 04/28/2017 1318 PST | + + + + | Respiratory Rate | 16 | 06/01/2018 1045 PST | + + + + | Oxygen Saturation | 97% | 07/22/2017 0847 PDT | + + + + | Inhaled Oxygen | - | - | | Concentration | | | + + + + | Weight | 82.6 kg (182 lb) | 07/27/20181102 PDT | + + + + | Height | 165.1 cm (5' 5") | 07/27/20181102 PDT | + + + + | Body Mass Index | 30.29 | 07/27/2018 1103 PDT | + + + + Plan of Treatment +--------+---------+ + + + | Date | Type | Specialty | Care Team | Description | +--------+---------+ + + + | 10/28/ | Office | | Ulysses Jensen, | | | 2018 | Visit | | MD [address] | | | | | | [place] | | | | | | [address] | | | | | | | | +--------+---------+ + + + | 11/30/ | Office | | Yesi, | | | 2018 | Visit | | JOSE ALBERTO Linder [address] | | | | | | [place] | | | | | | [place] [address] | | | | | | [phone] | | | | | | | [...] | | | | | Pneumococcal 65+ | 3 | | | | Low/Medium Risk (1 | | | | | of 2 - PCV13) | | | | + + + + + | Adult Annual | | | | | Wellness Visit | 5 | | | + + + + + | BREAST CANCER | | 11/08/2013, 05/18/2009 | | | SCREENING (MAMM Q2 | 6 | | | | YEARS <50 OR >74 | | | | + + + + + | Colorectal Cancer | | 03/28/2010 | | | Screening | 0 | | | | (Colonoscopy) | | | | + + + + + | Vaccine: Influenza | Completed | 02/27/2018, 02/09/2018, | | | | | 04/24/2017, Additional history | | | | | exists | | + + + + + Procedures + +--------+ + + + | [...] involving | | | | | | [place] coronary | | | | | | artery of [place] | | | | | | heart with unstable | | | | | | angina pectoris | | | | | | ([facility]) Chest pain, | | | | | [...] section. | + +--------+ + + + from Last 3 Months Results ECG 12 lead (06/01/2018 1109) + + + + + | Component | Value | Ref Range | Performed At | + + + + + | VENTRICULAR RATE EKG | 53 | BPM | [facility] [...] SIMMS MD | | | | | ([id number]) on 06/01/2018 | | | | | [...] | + +---------+ + + External Lab: BUN (05/30/2018) + [...] + + | Blood | + + CBC with Differential (05/30/2018) + + + [...] + + | Blood | + + from Last 3 Months Insurance + +--------+ +--------+ + + | Payer | Benefi | Subscriber | Type | Phone | Address | | | t Plan | ID | | | | | | / | | | | | | | Group | | | | | + +--------+ +--------+ + + | MEDICARE | MEDICA | [id number] | Medica | [phone]--- | | | | RE | | re | [phone] | | | | PART A | | | | | | | AND B | | | | | + +--------+ +--------+ + + | MODA | MODA | [id number] | Indemn | [phone] [address] [address] | | | HEALTH | | ity | [phone] | [place] [address] | | | MDCR | | | | | | | SUPPL | | | | | + +--------+ +--------+ + + + +--------+ +--------+ + + | Guarantor Name | Accoun | Relation to | Date | Phone | Billing Address | | | t Type | Patient | of | | | | | | | | | | + +--------+ +--------+ + + | JACLYN JACKSON | Person | Self [birth year] Home: | [address] | | | al/Fam | | [phone] | [phone] | [place] | | | [place] | | | [phone] | [phone] | + +--------+ +--------+ + +
--- OUTSIDE RECORDS SUMMARY | ~2018-08-01 | XMS | Encounter Summary ---
Demographics + + + | Address | [address] | | | [place] [address] | + + + | Home Phone [...] | [facility] | | | and [place] | + + + | Organization | [facility] [...] | | | | | [place] [address] | | + + + + + | Hunter Jackson | ECON | [place], [place] | | + + + + + | Wes Jackson | ECON | [place], [place] | | + + + + + | Oziel Jackson | ECON | [place] | | + + + + + Care Team Providers + +------+ + | Care Food Critic Name | Role | Phone | + [...] 07/27/ | Office | PM [place] | Ulyssse Jensen, | Arthritis of | | 2019 | Visit | ORTHOPEDIC SURGERY | MD [address] [facility] | carpometacarpal | | | | [address] [facility] | [place], [place] | (CMC) joint of right | | | | [place], [place] | [address] | thumb (Primary Dx); | | | | [address] | | Rotator cuff tear | | | | [phone] | | arthropathy of right | | [...] [place]ET[place] | | | | | | [address] | | | | | | | | +--------+---------+ + + + | 11/30/ | Office | Cardiology | Yesi, | | | 2019 | Visit | | JOSE ALBERTO Linder [address] | | | | | | [place], | | | | | | [place] [address] | | | | | | [phone] | | | | | | | [...]
--- OUTSIDE RECORDS SUMMARY | ~2018-08-01 | XMS | Clinical Summary ---
Demographics + + + | Address | [address] | | | [place] [address] | + + + | Home Phone [...] | Author | [facility] | | | and [place] | + + + | Organization | [facility] [...] [address] | | | | | [place] [address] | | + + + + + | Hunter Jackson | ECON | [place], [place] | | + + + + + | Wes Jackson | ECON | [place], [place] | | + + + + + | Oziel Jackson | ECON | [place] | | + + + + + Care Team Providers + +------+ + | Care Cement Side Laster Name | Role | Phone | + [...] function, LVEF by gated SPECT 76 %. 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) | [...] | AI, no , trace TR, trace [place], normal aorta other than mild | | [...] Visit | | JOSE ALBERTO Linder | disease; Epistaxis; | | | | | | Murmur; Essential | | | | | | hypertension with | | | | | | goal blood pressure | | | | | | less than 130/80; | | | | | | Coronary artery | | | | | | disease involving | | | | | | [place] coronary | | | | | | artery of [place] | | | | | | heart with unstable | | | | | | angina pectoris | | | | | | ([facility]); Chest pain, | | | | | [...] [place]ET[place] | | | | | | [address] | | | | | | | | +--------+---------+ + + + | 11/30/ | Office | | Yesi, | | | 2018 | Visit | | JOSE ALBERTO Linder [address] | | | | | | [place] | | | | | | [place] [address] | | | | | | [phone] | | | | | | | [...] involving | | | | | | [place] coronary | | | | | | artery of [place] | | | | | | heart with unstable | | | | | | angina pectoris | | | | | | ([facility]) Chest pain, | | | | | [...] SIMMS MD | | | | | ([id number]) on 06/01/2018 | | | | | [...] + + | MEDICARE | MEDICA | [id number] | Medica | +1--- | | | | RE | | re | [phone] | | | | PART A | | | | | | | AND B | | | | | + +--------+ +--------+ + + | MODA | MODA | [id number] | Indemn | [phone] | [address] [address] | | | HEALTH | | ity | [phone] | [place] [address] | | | MDCR | | | [...] | [place] | | | [phone] | [address] | + +--------+ +--------+ + +
--- OUTSIDE RECORDS SUMMARY | ~2018-08-01 | XMS | Encounter Summary ---
Demographics + + + | Address | [address] | | | [place] [address] | + + + | Home Phone [...] Author | [facility] | | | and [place] | + + + | Organization | [facility] [...] | | | | | [place] [address] | | + + + + + | Hunter Jackson | ECON | [place], [place] | | + + + + + | Wes Jackson | ECON | [place], [place] | | + + + + + | Oziel Jackson | ECON | [place] | | + + + + + Care Team Providers + +------+ + | Care Procurement Director Name | Role | Phone | [...] + + | 06/01/ | Office | [facility] [place] | Yesi, | TIA; Valvular heart | | 2019 | Visit | CARDIOLOGY [address] | JOSE ALBERTO Linder [address] | disease; Epistaxis; | | | | [place], | [place], | Murmur; Essential | | | | [place] [address] | [place] [address] | hypertension with | | | | [phone] | [phone] | goal blood pressure | | | | | | less than 130/80; | | | | | | Coronary artery | | | | | | disease involving | | | | | | [place] coronary | | | | | | artery of [place] | | | | | | heart [...] cervical Cervical radiculopathy Coronary artery disease involving [place] coronary artery of [place] heart with unstable angina pectoris Stress hyperglycemia [...] RESULTS reviewed during visit today primarily from [facility]: LIPID Lab Results Component Value [...] BNPEX 63 09/18/2016 I reviewed records from [facility] for office visit on 04/2018 whic h is summarized in the HPI. RESULTS- I reviewed reports from [facility]: No results found. Above data and testing is reviewed this visit; testing below is historical data unless othe rwise specified. ASSESSMENT: 1. Coronary artery disease A. Seen at [facility] they had EKG and sent her home stating it was GERD B. Seen in the emergency room at [facility] for chest pain. e was schedule for stress test and discharged home. C. Stress Test 05/16/16, is maximal asymptomatic stress test, [facility] very poor function status, achieving [...] central AI, no , trace TR, trace [place], normal aorta other than mild calcification at [...] is in class II of th e [employer] functional class. There are no [...] this chart may have been created with [employer] voice recognition software. Occasi onal wrong-word or [...] [place] | | | | | | [address] | | | | | | | | +--------+---------+ + + + | 11/30/ | Office | Cardiology | Yesi, | | | 2018 | Visit | | JOSE ALBERTO Linder [address] | | | | | | [place], | | | | | | [place] [address] | | | | | | [phone] | | | | | | | [...] involving | | | | | | [place] coronary | | | | | | artery of [place] | | | | | | heart with unstable | | | | | | angina pectoris | | | | | | ([facility]) Chest pain, | | | | | [...] SIMMS MD | | | | | [id number]) on 06/01/2018 | | | | | [...] + + | Coronary artery disease involving [place] coronary artery of [place] heart with unstable | | angina pectoris (HCC) | + + | Chest pain, unspecified type | + + | Hyperlipidemia, mixed | + + | Mixed hyperlipidemia | + +
--- OUTSIDE RECORDS SUMMARY | ~2018-08-01 | XMS | Encounter Summary ---
Demographics + + + | Address | [address] | | | [place] [address] | + + + | Home Phone [...] + | Author | [facility] | | | and [place] | + + + | Organization | [facility] | | [...] | | | | | [place] [address] | | + + + + + | Hunter Jackson | ECON | [place], [place] | | + + + + + | Wes Jackson | ECON | [place], [place] | | + + + + + | Oziel Jackson | ECON | [place] | | + + + + + Care Team Providers + +------+ + | Care Diabetes Specialist Name | Role | Phone | [...] + + | 05/29/ | Telephone | [facility] | Yesi | JENELLE | | 2019 | | [place] [address] | JOSE ALBERTO Linder [address] | | | | | [place], | [place], | | | | | [place] [address] | [place] [address] | | | | | [phone] | [phone] | | | | | | | [...] STREETER | | | | | | [address] | | | | | | | | +--------+---------+ + + + | 11/30/ | Office | Cardiology | Yesi, | | | 2018 | Visit | | JOSE ALBERTO Linder [address] | | | | | | [place], | | | | | | [place] [address] | | | | | | [phone] | | | | | | | | +--------+---------+ + + + as of this encounter Visit Diagnoses Not on filein this encounter"
[~2018-08-01 15:28] MED LIST changes: +LIPITOR40 MG PO; +NORCO 7.5-3251 EACH PO
--- OUTSIDE RECORDS SUMMARY | 2018-08-01 15:32 | XMS ---
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 Armando has no Care Guidelines for this patient. Ken VISIT COUNT (12 MO.) 2 EVON Zamora TOTAL 2 NOTE: Visits indicate total known visits. 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
[2018-08-01] MEDS ORDERED: CYMBALTA20 MG PO (15:43)
[2018-08-01] MEDS ORDERED: ISOSORBIDE MONO30 MG PO (15:44)
--- NOTE | 2018-08-02 14:16 | EKG ---
[facility] [address] [facility] [place] [address] Signed Normal sinus rhythm Possible Left atrial enlargement Nonspecific ST abnormality Abnormal ECG When compared with ECG of 24-NOV-2017 16:35, premature atrial complexes are no longer present Confirmed by MARLO STEVENS MD ([id number]) on 08/02/2018 2:16:35 PM Electronically Signed By: MARLO STEVENS MD 08/02/18 1416 PATIENT NAME: JACLYN ZURITA Electrocardiogram DATE OF : 39 PHYSICIAN: MARLO STEVENS MD REPORT #: [id number] REPORT IS CONFIDENTIAL AND NOT TO BE RELEASED WITHOUT AUTHORIZATION
== END 2018-08-01 17:54 | disposition home or self-care (01) ==
LOC: ED 15:28
DX: B34.9 Viral infection, unspecified (principal); I10 Essential (primary) hypertension; Z86.73 Personal history of transient ischemic attack (TIA), and cerebral infarction without residual deficits; Z91.048 Other nonmedicinal substance allergy status; Z88.0 Allergy status to penicillin; Z88.6 Allergy status to analgesic agent; Z79.82 Long term (current) use of aspirin; Z79.899 Other long term (current) drug therapy
CPT/HCPCS: 71046; 80053; 81001; 83880; 84484; 85025; 87502; 93005; 93010; 99285-25

== ENCOUNTER 2019-04-12 20:18 | Emergency (ER) | payer MEDICARE, OTHER ==
[~2019-04-12] VITALS: Ht 165.1 cm; Wt 87.1 kg
--- OUTSIDE RECORDS SUMMARY | ~2019-04-12 | XMS | Encounter Summary ---
Demographics + + + | Address | [address] | | | [place] [address] | + + + | Home Phone | | + + + | Preferred Language | Unknown | + + + | Marital Status | | + + + | Yarsani Affiliation | Unknown | + + + | Race | Unknown | + + + | Ethnic Group | Unknown | + + + Author + + + | Author | [facility] | | | and [place] | + + + | Organization | [facility] | | | and [place] | + + + | Address | Unknown | + + + | Phone | Unavailable | + + + Support + + + + + | Name | Relationship | Address | Phone | + + + + + | Osmin Jackson | ECON | [address] | | | | | [place] [address] | | + + + + + | Hunter [place] | ECON | [place] | | + + + + + | Wes Jackson | ECON | [place], [place] | | + + + + + | Oziel Jackson | ECON | [place], [place] | | + + + + + Care Team Providers + +------+ + | Care Block Splitter Operator Name | Role | Phone | + +------+ + | Gunderson, Kellie PA | PCP | | + +------+ + Reason for Visit Auth/Cert +--------+--------+ + + + + | Status | Reason | Specialty | Diagnoses / | Referred By | Referred To | | | | | Procedures | Contact | Contact | +--------+--------+ + + + + | | | | Diagnoses | | Eze, | | | | | Coronary | | MD Christina | | | | | atherosclero | | [address] | | | | | sis of | | [place], | | | | | unspecified | | [place] [address] | | | | | type of | | Phone: | | | | | vessel, | | [phone] | | | | | stebbins or | | Fax: | | | | | graft | | [phone] | | | | | Coronary | | | | | | | atherosclero | | | | | | | sis of | | | | | | | unspecified | | | | | | | type of | | | | | | | vessel, | | | | | | | stebbins or | | | | | | | graft | | | | | | | Procedures | | | | | | | NM ENDOSCOPY | | | | | | | | | | | | | | W/VIDEO-ASST | | | | | | | VEIN | | | | | | | HARVEST,CABG | | | | | | | NM CABG, | | | | | | | ARTERY-VEIN, | | | | | | | FOUR NM | | | | | | | CABG, | | | | | | | ARTERIAL, | | | | | | | SINGLE | | | +--------+--------+ + + + + Encounter Details +--------+---------+ + + + | Date | Type | Department | Care Team | Description | +--------+---------+ + + + | 11/01/ | Surgery | [facility] | [place], | CABG X 4-5, AHMET MANDUJANO | | 2017 | | [facility] | MD Christina [address] | | | | | OP [address] | [address] [place] | | | | | [place] | [phone] | | | | | [address] | | | | | | [phone] | | | +--------+---------+ + + + Social History + + + +--------+ + | Tobacco Use | Types | Packs/Day | Years | Date | | | | | Used | | + + + +--------+ + | Former Smoker | Cigarettes | 3 | 21 | 05/12/1955 - | | | | | | 05/12/1976 | + + + +--------+ + + +---+---+---+ | Smokeless Tobacco: | | | | | Never Used | | | | + +---+---+---+ + + +---------+ + | Alcohol Use | Drinks/Week | oz/Week | Comments | + + +---------+ + | No | 0 Standard drinks | 0.0 | | | | or equivalent | | | + + +---------+ + + + + | Sex Assigned at | Date Recorded | | | | + + + | Not on file | | + + + + + + + | Job Start Date | Occupation | Industry | + + + + | Not on file | Not on file | Not on file | + + + + + + + + | Travel History | Travel Start | Travel End | + + + + + + | No recent travel history available. | + + documented as of this encounter Last Filed Vital Signs + + + + + | Vital Sign | Reading | Time Taken | Comments | + + + + + | Blood Pressure | 117/63 | 11/06/2016 2:39 PM | | | | | PDT | | + + + + + | Pulse | 79 | 11/06/2016 2:39 PM | | | | | PDT | | + + + + + | Temperature | 36.2 C (97.2 F) | 11/06/2016 2:39 PM | | | | | PDT | | + + + + + | Respiratory Rate | 16 | 11/06/2016 2:39 PM | | | | | PDT | | + + + + + | Oxygen Saturation | 95% | 11/06/2016 2:39 PM | | | | | PDT | | + + + + + | Inhaled Oxygen | - | - | | | Concentration | | | | + + + + + | Weight | 82.7 kg (182 lb 5.1 | 11/04/2016 8:00 PM | | | | oz) | PDT | | + + + + + | Height | 162.6 cm (5' 4") | 11/01/2016 6:00 AM | | | | | PDT | | + + + + + | Body Mass Index | 31.3 | 11/01/2016 6:00 AM | | | | | PDT | | + + + + + documented in this encounter Discharge Summaries Mario London PA-C - 11/06/2016 9:52 AM PDTFormatting of this note might be different f rom the original. [facility] DISCHARGE SUMMARY PATIENT NAME: Jaclyn Jackson : 1935: AGE: 81 y.o. ADMISSION DATE: 11/01/2016 DISCHARGE DATE: 11/06/2016 PRIMARY CARE: FLORA Morgan Patient ID: Jaclyn Jackson [id number] 81 y.o. 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 Primary procedure: CABG x3 Date of surgery: 11/01/16 Surgeon: Dr. Christina Loo MD. Anusha Flores PA-C assisting Indication for Procedure: CAD (if applicable, see operative note for details) Discharge Medications: Discharge Medications New Medications Details aspirin 81 mg chewable tablet Take 2 tablets by mouth Daily. atorvaSTATin 40 mg tablet Take 1 tablet by mouth nightly. aka: LIPITOR metoprolol tartrate 25 mg tablet Take 1 tablet by mouth 2 times daily. aka: LOPRESSOR potassium chloride 20 mEq ER tablet Take 1 tablet by mouth 2 times daily for 3 days. aka: K-DUR Changed Medications Details furosemide 40 mg tablet Take 1 tablet by mouth Daily for 3 days. What changed: medication strength how much to take aka: LASIX Start: 11/07/2016 HYDROcodone-acetaminophen 7.5-325 mg per tablet One po qd prn pain, avoid routine use, 90 day supply What changed: Another medication with the same name was added. Make sure you understand ho w and when to take each. aka: NORCO HYDROcodone-acetaminophen 5-325 mg per tablet Take 0.5-1 tablets by mouth every 4 hours as needed for Pain. What changed: You were already taking a medication with the same name, and this prescripti on was added. Make sure you understand how and when to take each. aka: ROJELIO Unchanged Medications Details albuterol 90 mcg/puff inhaler 2 puff po q 4 hours prn amLODIPine 10 MG tablet Take 10 mg by mouth Daily. aka: NORVASC BIOTIN PO Take 500 mg by mouth Daily. CITRACAL MAXIMUM PO TABS Take one by mouth three times daily. COSAMIN DS PO Take 2 tablets by mouth Daily. cyanocobalamin 1000 MCG tablet Take 1,000 mcg by mouth Daily. aka: VITAMIN B-12 D-5000 PO Take 5,000 Units by mouth Daily. diclofenac 1% Gel Apply 1 g topically Daily as needed. aka: VOLTAREN diphenhydrAMINE 25 mg tablet Take 25 mg by mouth nightly as needed for Itching. aka: BENADRYL eszopiclone 2 MG Tabs Take 1 tablet by mouth nightly. aka: LUNESTA GARLIC Take 1,000 mg by mouth Daily. L-Lysine HCl 500 MG Caps Take 500 mg by mouth Daily. levothyroxine 50 mcg tablet Take 50 mcg by mouth Twice daily with lunch/dinner. aka: SYNTHROID, LEVOTHROID MELATONIN MAXIMUM STRENGTH 5 mg tablet Generic drug: melatonin Take 5 mg by mouth Daily as needed. nitroglycerin 0.[address] 1 tablet under the tongue every 5 minutes as needed for Chest pain. aka: NITROSTAT OCUVITE ADULT 50+ Caps Take by mouth Daily. omeprazole 20 mg capsule Take 20 mg by mouth every morning (before breakfast). aka: priLOSEC polyethylene glycol packet Take 17 g by mouth Daily as needed. Took it once on the aka: MIRALAX SLOW-MAG 71.5-119 MG Tbec Generic drug: magnesium-calcium carbonate Take 71.5-119 mg by mouth Daily. Discontinued Medications metoprolol succinate 50 mg 24 hr tablet aka: TOPROL-XL Current Discharge Medication List START taking these medications Details aspirin 81 mg chewable tablet Take 2 tablets by mouth Daily. Qty: 30 tablet, Refills: 2 atorvaSTATin (LIPITOR) 40 mg tablet Take 1 tablet by mouth nightly. Qty: 30 tablet, Refills: 2 furosemide (LASIX) 40 mg tablet Take 1 tablet by mouth Daily for 3 days. Qty: 3 tablet, Refills: 0 HYDROcodone-acetaminophen (NORCO) 5-325 mg per tablet Take 0.5-1 tablets by mouth every 4 h ours as needed for Pain. Qty: 40 tablet, Refills: 0 metoprolol tartrate (LOPRESSOR) 25 mg tablet Take 1 tablet by mouth 2 times daily. Qty: 60 tablet, Refills: 2 potassium chloride (K-DUR) 20 mEq ER tablet Take 1 tablet by mouth 2 times daily for 3 days . Qty: 6 tablet, Refills: 0 Discharged Condition: good Consults: Cardiology: Dr. Suhail Torres [facility]: The patient proceeded to OR on the day of admission. Cross-clamp time of 53 minutes. Pump time of 79 minutes. Extubated on same day neurologically intact. Chest tubes were removed on postoperative day 1. Pacer wires were pulled on postoperative day 3. The patient was t ransferred out of the CICU on postoperative day 1. Diabetes services were involved in manag ement of blood glucose. The remainder of the patient's hospital course was dedicated to car diopulmonary rehab. The patient progressed with therapy and will be discharged to home on p ostoperative day 5. In-hospital complications: 1) volume overload - lasix 40mg daily x3 days at discharge Discharge Exam: General: NAD Cardiovascular: RRR. No mRG Lungs: CTA Abdomen: soft, NTND tones heard Extremities: trace BLE edema Wounds: c/d/i Disposition: Home with family Instructions: --No lifting, pushing, pulling >5-10lbs for the first 4 weeks. No driving for 4 weeks and/ or if still taking narcotics. --Watch for increased redness, swelling, or drainage of incisions. Call for fever greater than or equal to 100 degrees. --Patient may shower, but only soap and water on incisions. --Continue to increase activities with ambulation and to use IS. --Call with any questions concerns or worries. Follow-Up: Follow-up Information Irina Simms MD On 11/22/2016. Specialty: Cardiology Why: at 11:00 am Contact information: [address] [facility] [address] Call Christina Loo MD. Specialty: Cardiothoracic Surgery Why: As needed, If symptoms worsen. Otherwise okay to follow up postop with Dr. Cevallos Contact information: [address] [place] [address] [place]. Schedule an appointment as soon as possible for a visit in 2 weeks. Specialty: Physician [employer] Solutions Supervisor Why: Primary care follow up after cardiac surgery Contact information: [address], [address] [place] [phone] If patient has any further questions or concerns prior to above, instructed to call our off ice. [phone]. Time spent on discharge planning: less than 30 minutes CABG Checklist ACEI/ARB/ARNI prescribed: N/A - LV EF is greater than 40% Aspirin prescribed: Yes Beta selena (evidence-based) prescribed: N/A - LV EF is greater than 40% Beta selena prescribed: Yes High intensity statin prescribed: Yes Referral to cardiac rehab: Yes Tobacco cessation counseling provided: No - does not actively use tobacco Signed: Mario London PA-C 11/06/2016 13:12 Cardiothoracic Surgery [facility] [address] [place] [address] Portions of this chart may have been created with [employer] voice recognition software. Occasi onal wrong-word or sound-alike substitutions may have occurred due to the inherent doe itations of voice recognition software. Please read the chart carefully and recognize, using context, where these substitutions have occurred. documented in this encounter Discharge Instructions Instructions Dominga Hernandez RN - 11/06/2016Formatting of this note might be different fro humphrey the original. [facility] After Open Heart Surgery Home Care Take your medications exactly as directed. Don t skip doses. Avoid using very hot water while showering. It can affect your circulation and make you dizzy. Clean your incision every day with soap and water. Gently pat dry the area of the incisi on. Don t use any powders, lotions, or oils on your incision until it is well healed. Heal ing takes several weeks to months. Weigh yourself every day, at the same time of day, and in the same kind of clothes. Tell your primary care doctor if you feel depressed, have trouble sleeping, or have a pe rsistent decrease in appetite. These are common problems after surgery, but they can slow yo ur recovery. It s important to seek help. Activity Discuss with our office about what you can and can t do as you recover. You will have good and bad days. This is normal. Let others drive for the first 4-6weeks after your surgery. Ask someone to stand nearby while you shower or do other activities, just in case you ne ed help. Don t lift anything heavier [id number] for 4-6 weeks. Until approved by your doctor, avoid mowing the lawn, vacuuming,or other activities th at could strain your breastbone. Ask your healthcare provider when you can expect to return to work. Lifestyle Changes Maintain a healthy weight. Get help to lose any extra pounds. Cut back on salt. Limit canned, dried, packaged, and fast foods. Don t add salt to your food at the table. Season foods with herbs instead of salt when you cook. Break the smoking habit if you still have one. Enroll in a stop-smoking program to impro ve your chances of success. Ask your doctor when you can start a walking program. If you haven t already started a walking program in the hospital, begin with short wal ks ([id number]) at home. Go a little longer each day. Choose a safe place with a level surface, such as a local park or mall. Wear supportive shoes to prevent injury to knees and ankles. Walk with someone. It s more fun and helps you stay with it. Follow-Up Make a follow-up appointment as directed by our staff. When to Call Our Office (Make sure we are your first call) Call your doctor immediately if you have any of the following: Chest pain or a return of the heart symptoms you had prior to surgery Fever [id number] New or spreading redness, swelling, drainage, or warmth at the incision site New or worsening shortness of breath Fainting Weight gain of more [id number] or more [id number] pc6gwjb(s) New or increasedswelling in your hands, feet, or ankles Pain that cannot be relieved or changes in the location, type, or severity of pain Fast or irregular pulse Unrelieved pain in your incision PHS Patient Belongings Jaclyn Jackson 1935 Valuables Dentures: None Vision - Corrective Lenses: None Hearing Aid: None Jewelry: None Clothing: Secured on Unit Other Valuables: None Other Valuables: Other (Comment) (green bag with clothes in belongings bag) Home Medications: None Responsible person(s) in the waiting room?: Mary Flores [phone] Patient Signature: Clinician/Bean Sorter Signature: documented in this encounter Medications at Time of Discharge + + + +---------+ + + | Medication | Sig | Dispensed | Refills | Start | End Date | | | | | | Date | | + + + +---------+ + + | aspirin 81 mg | Take 2 tablets by | 30 | 2 | 11/07/19 | | | chewable tablet | mouth Daily. | tablet | | 17 | | + + + +---------+ + + | BIOTIN PO | Take 500 mg by mouth | | 0 | | | | | Daily. | | | | | + + + +---------+ + + | Calcium | TABS Take one by | | 0 | 01/23/20 | | | Citrate-Vitamin D | mouth three times | | | 12 | | | (CITRACAL MAXIMUM | daily. | | | | | | PO) | | | | | | + + + +---------+ + + | Cholecalciferol | Take 5,000 Units by | | 0 | 01/23/20 | | | (D-5000 PO) | mouth Daily. | | | 12 | | + + + +---------+ + + | diclofenac | Apply 1 g topically | 100 g | 0 | 02/01/20 | | | (VOLTAREN) 1% | Daily as needed. | | | 15 | | | GELIndications: | | | | | | | Primary | | | | | | | osteoarthritis | | | | | | | involving multiple | | | | | | | joints | | | | | | + + + +---------+ + + | GARLIC | Take 1,000 mg by | | 0 | | | | | mouth Daily. | | | | | + + + +---------+ + + | L-Lysine HCl 500 | Take 500 mg by mouth | | 0 | 01/23/20 | | | MG CAPS | Daily. | | | 12 | | + + + +---------+ + + | magnesium-calcium | Take 71.5-119 mg by | | 0 | 01/23/20 | | | carbonate (SLOW-MAG) | mouth Daily. | | | 12 | | | 71.5-119 MG TBEC | | | | | | + + + +---------+ + + | Melatonin | Take 5 mg by mouth | | 0 | 01/23/20 | | | (MELATONIN MAXIMUM | Daily as needed. | | | 12 | | | STRENGTH) 5 MG TABS | | | | | | + + + +---------+ + + | Multiple | Take by mouth | | 0 | | | | Vitamins-Minerals | Daily. | | | | | | (OCUVITE ADULT 50+) | | | | | | | CAPS | | | | | | + + + +---------+ + + | omeprazole | Take 20 mg by mouth | | 0 | 08/14/19 | | | (PRILOSEC) 20 mg | every morning | | | 17 | | | capsule | (before breakfast). | | | | | + + + +---------+ + + | vitamin B-12 | Take 1,000 mcg by | | 0 | | | | (CYANOCOBALAMIN) | mouth Daily. | | | | | | 1000 MCG tablet | | | | | | + + + +---------+ + + | albuterol 90 | 2 puff po q 4 hours | 1 | 0 | 05/19/19 | | | mcg/puff | prn | Inhaler | | 15 | 7 | | inhalerIndications: | | | | | | | Asthma | | | | | | + + + +---------+ + + | amLODIPine | Take 10 mg by mouth | | 0 | 07/01/19 | | | (NORVASC) 10 MG | Daily. | | | 17 | 9 | | tablet | | | | | | + + + +---------+ + + | atorvaSTATin | Take 1 tablet by | 30 | 2 | 11/07/19 | | | (LIPITOR) 40 mg | mouth nightly. | tablet | | 17 | 7 | | tablet | | | | | | + + + +---------+ + + | diphenhydrAMINE | Take 25 mg by mouth | | 0 | | | | (BENADRYL) 25 mg | nightly as needed | | | | 8 | | tablet | for Itching. | | | | | + + + +---------+ + + | eszopiclone | Take 1 tablet by | 90 | 0 | 02/15/20 | | | (LUNESTA) 2 MG TABS | mouth nightly. | tablet | | 16 | 8 | + + + +---------+ + + | furosemide (LASIX) | Take 1 tablet by | 3 | 0 | 11/08/19 | | | 40 mg tablet | mouth Daily for 3 | tablet | | 17 | 7 | | | days. | | | | | + + + +---------+ + + | | Take 2 tablets by | | 0 | | | | Glucosamine-Chondroi | mouth Daily. | | | | 8 | | tin (COSAMIN DS PO) | | | | | | + + + +---------+ + + | | Take 0.5-1 tablets | 40 | 0 | 11/07/19 | | | HYDROcodone-acetamin | by mouth every 4 | tablet | | 17 | 8 | | ophen (NORCO) 5-325 | hours as needed for | | | | | | mg per tablet | Pain. | | | | | + + + +---------+ + + | | One po qd prn pain, | 80 | 0 | 01/25/20 | | | HYDROcodone-acetamin | avoid routine use, | tablet | | 16 | 7 | | ophen (NORCO) | 90 day supply | | | | | | 7.5-325 mg per | | | | | | | tabletIndications: | | | | | | | Pain | | | | | | + + + +---------+ + + | levothyroxine | Take 50 mcg by mouth | | 0 | 06/20/19 | | | (SYNTHROID, | Twice daily with | | | 17 | 8 | | LEVOTHROID) 50 mcg | lunch/dinner. 88 mcg | | | | | | tablet | daily | | | | | + + + +---------+ + + | metoprolol | Take 1 tablet by | 60 | 2 | 11/07/19 | | | tartrate (LOPRESSOR) | mouth 2 times daily. | tablet | | 17 | 7 | | 25 mg tablet | | | | | | + + + +---------+ + + | nitroglycerin | Place 1 tablet under | 20 | 1 | 07/03/19 | | | (NITROSTAT) 0.4 mg | the tongue every 5 | tablet | | 17 | 7 | | SL tablet | minutes as needed | | | | | | | for Chest pain. | | | | | + + + +---------+ + + | polyethylene | Take 17 g by mouth | | 0 | | | | glycol (MIRALAX) | Daily as needed. | | | | 7 | | packet | Took it once on the | | | | | | | 23rd | | | | | + + + +---------+ + + | potassium chloride | Take 1 tablet by | 6 | 0 | 11/07/19 | | | (K-DUR) 20 mEq ER | mouth 2 times daily | tablet | | 17 | 7 | | tablet | for 3 days. | | | | | + + + +---------+ + + documented as of this encounter Progress Notes Dominga Hernandez RN - 11/06/2016 12:57 PM PDTReceived orders for DC. PIV removed, pressure dressing in place. DC paperwork reviewed in detail with patient and daughter. Prescriptions reviewed, pt to pharmacy picking technician at [facility] pharmacy. Questions answered. Advised of follow up appointme nts and to schedule follow up with PCP. Pt given Mg citrate this am with multiple BM's. To s hower and change and DC home to [place] by car with daughter. Update: Pt showered, dressed. States that she has all belongings. WC transport placed to md in doors. Daughter picked up meds at pharmacy. Macrina Garber ARNP - 11/06/2016 11:19 AM PDTFormatting of this not e might be different from the original. PATIENT NAME: Jaclyn Jackson : 1935: AGE: 81 y.o. ADMISSION DATE: 11/01/2016 Hospital Day: Hospital Day: 6 Code Status: Full Code Date of Service: 11/06/2016 JOSE ALBERTO [place] CARDIOLOGY DAILY PROGRESS NOTE PRIMARY HOSPITAL PROBLEM: Coronary artery disease involving stebbins coronary artery of stebbins heart with unstable miranda na pectoris (HCC) CHIEF COMPLAINT: CAD ASSESSMENT Anemia Assessment & Plan H/H stable Hyperlipidemia, mixed Assessment & Plan Continue statin * Coronary artery disease involving stebbins coronary artery of stebbins heart with unstable an nayeli pectoris (HCC) Assessment & Plan POD #6 Coronary artery bypass grafting x3 (VERDUZCO-LAD, rSVG-Diag, rSVG-RCA) LVEF 65% prostoperatively. PLAN OK to dc to home follow up in [place] SUBJECTIVE DATA SUBJECTIVE: tired after having BM this am. REVIEW OF SYSTEMS: CV: negative Resp: negative OBJECTIVE DATA MEDICATIONS: Reviewed today Scheduled PRN amLODIPine 10 mg Oral Daily aspirin 162 mg Oral Daily atorvaSTATin 40 mg Oral Nightly docusate sodium 100 mg Oral BID famotidine 20 mg Oral BID [START ON 11/07/2016] furosemide 40 mg Oral Daily levothyroxine 50 mcg Oral BID AC metoprolol tartrate 25 mg Oral BID polyethylene glycol 17 g Oral Daily nitroglycerin in dextrose Stopped (11/02/16 1650) acetaminophen, albumin, albuterol, bisacodyl, [DISCONTINUED] HYDROcodone-acetaminophen O R HYDROcodone-acetaminophen OR [DISCONTINUED] HYDROcodone-acetaminophen, lactulose, ma gnesium hydroxide, menthol, menthol throat lozenges, ondansetron, ondansetron, senna, sodium bicarbonate IMAGING Reviewed today No results found. LABS Reviewed today Recent Labs 11/06/16 0259 11/04/16 0418 WBC -- 17.2* HGB -- 9.7* HCT -- 29.0* PLT -- 205 NA 136 135 K 4.0 4.2 CL 100 99 CO2 29* 31* BUN 7* 12 CREA 0.44* 0.46* GLU 114* 115* CALCIUM 8.6 9.1 Lab Results Component Value Date CHOL 218 (H) 09/26/2015 LDL 127 09/26/2015 HDL 71 09/26/2015 TRIG 98 09/26/2015 VITAL SIGNS: Reviewed today Vitals Current Average / Min / Max Temp 37.2 C (99 F) Temp Min: 36.3 C (97.3 F) Max: 37.3 C (99.1 F) BP 132/60 BP Min: 94/61 Max: 136/69 HR 62 Pulse Av.3 Min: 61 Max: 82 RR 16 Resp Av Min: 16 Max: 16 Sats 96 % on 0L/min room air Weight 82.7 kg (182 lb 5.1 oz) Admit: 78 kg (172 lb) INTAKE/OUTPUT Reviewed today Intake/Output Summary (Last 24 hours) at 11/06/16 1119 Last data filed at 11/06/16 0927 Gross per 24 hour Intake 2020 ml Output 1400 ml Net 620 ml PHYSICAL EXAM Admit Weight: Weight: 78 kg (172 lb) Current weight: Weight: 82.7 kg (182 lb 5.1 oz) Body mass index is 31.3 kg/m. GENERAL: Pleasant, talkative in no apparent distress CHEST: Good inspiratory effort with no crackles, ronchi, or wheezes. CARDIAC: Normal S1 and S2. RRR, no murmurs, no rubs or gallops. ABDOMEN: Soft, non-tender, nondistended with normal, active bowel sounds. EXTREMITIES: No clubbing, cyanosis, or edema. PULSES: Distal pulses intact NEUROLOGIC: Non-focal. TELE: SR Reviewed today Signed by: JOSE ALBERTO Ornelas 11/06/2016, 11:19 Mario Yoo PA- C - 11/06/2016 9:10 AM PDT [facility] Progress Note Pt. Name/Age/: Jaclyn Jackson 81 y.o. 1935 Med. Record Number: [id number] Date of admission: 11/01/2016 Hospital Day: 6 5 Days Post-Op Procedure: CABGx3 Date of Surgery: 11/01/16 Surgeon: Dr. Christina Loo MD. Anusha Flores PA-C assisting SUBJECTIVE Background History: 81 y.o. female with CAD admitted electively for above surgery Intraop findings: poor vein, composite graft from 2pc for diag; poor reop candidate. Nor mal EF XC 53min; CPB 79 min POD 0: extubated neuro intact POD1: DC CT's; transfer to tele POD2: progressive CV recovery POD 3: dc TPW; work with PT on stairs POD4: wean oxygen, continue CV recovery Consultations: Cardiology: Dr. Suhail Flannery Endocrinology: JOSE ALBERTO Scherer Interval (24 hour) History/ROS: The patient was seen and examined and the chart was reviewed. The patient is feeling well . Pain well managed. No n/v. Walking in halls well. Voiding. Awaiting BM. Would like to go h ome today OBJECTIVE Vitals: Temp: 36.6 C (97.9 F) BP: 124/58 Pulse: 82 Resp: 16 SpO2: 98 % on 0L/min room air Cardiac Rhythm: normal sinus 24 hour I/O: Weight: Intake/Output Summary (Last 24 hours) at 11/06/16 0910 Last data filed at 11/06/16 0825 Gross per 24 hour Intake 1600 ml Output 1400 ml Net 200 ml Chest tube output in last 24 hours: na Is/Os from admit: +2.3L Wt Readings from Last 3 Encounters: 11/04/16 82.7 kg (182 lb 5.1 oz) 10/31/16 79.4 kg (175 lb) 10/16/16 78 kg (172 lb) Admission Weight: Weight: 78 kg (172 lb) Physical Exam Gen: NAD Chest: incision c/d/i Cardiac: RRR. No MRG heard Pulm: CTA GI: soft, NTND. Tones heard Ext: no edema, clubbing or cyanosis RECENT SELECT LAB: Recent Labs Lab 11/04/16 0418 11/02/16 0211 11/01/16 1437 WBC 17.2* 19.6* 22.8* HGB 9.7* 9.9* 11.7 HCT 29.0* 29.5* 33.7* PLT 205 244 239 Recent Labs Lab 11/06/16 0259 11/04/16 0418 11/02/16 0211 NA 136 135 142 K 4.0 4.2 4.0 CL 100 99 107 CO2 29* 31* 27 BUN 7* 12 17 CREA 0.44* 0.46* 0.75 GLU 114* 115* 131* No results for input(s): BNP in the last 168 hours. Invalid input(s): CKTOTAL, TROPONINI, CKMBINDEX Recent Labs Lab 10/31/16 1609 INR 1.0 No results for input(s): MG in the last 168 hours. Invalid input(s): PHOS, CALCIUM Medications have been reviewed. Please refer to the MAR for details. Scheduled Meds: amLODIPine 10 mg Oral Daily aspirin 162 mg Oral Daily atorvaSTATin 40 mg Oral Nightly docusate sodium 100 mg Oral BID famotidine 20 mg Oral BID furosemide 20 mg Oral Daily levothyroxine 50 mcg Oral BID AC magnesium citrate 300 mL Oral Once metoprolol tartrate 25 mg Oral BID polyethylene glycol 17 g Oral Daily IV Meds: nitroglycerin in dextrose Stopped (11/02/16 1650) Antibiotic(s)/duration: periop Nutrition: eating Imaging: None today ASSESSMENT AND PLAN Principal Problem: Coronary artery disease involving stebbins coronary artery of stebbins heart with unstable an nayeli pectoris Active Problems: Volume Overload - diuresis modest - increase lasix to 40mg PO daily x3 days Anemia - low Fe, cannot use Fe supplement (sulfate or gluconate) due to yellow dye allergy unfortu nately - follow clinically, hemodynamically stable Hx of TIA - no major motor deficits; ambulating well Stress hyperglycemia - glycemic management per endocrine # Disposition - Anticipate discharge today to Home with family Electronically signed by: Mario London PA-C 11/06/2016 9:10 Cardiothoracic Surgery [facility] [address] [place] [address] Portions of this chart may have been created with [employer] voice recognition software. Occasi onal wrong-word or sound-alike substitutions may have occurred due to the inherent doe itations of voice recognition software. Please read the chart carefully and recognize, using context, where these substitutions have occurred. Glenda Bradshaw LICSW - 11/05/2016 2:30 PM PDTD/C Planning: Pt returning home with dtr in law to stay. Per therapy pt able to go to outpt services. Zainab Leyva ARNP - 11/05/2016 11:27 AM PDTFormatt ing of this note might be different from the original. PATIENT NAME: Jaclyn Jackson : 1935: AGE: 81 y.o. ADMISSION DATE: 11/01/2016 Hospital Day: Hospital Day: 5 Code Status: Full Code DATE OF SERVICE: 11/05/2016 JOSE ALBERTO [place] CARDIOLOGY DAILY PROGRESS NOTE PRIMARY HOSPITAL PROBLEM: Coronary artery disease involving stebbins coronary artery of stebbins heart with unstable miranda na pectoris (HCC) CHIEF COMPLAINT: Feeling well, no shortness of breath or chest pain ASSESSMENT Anemia Assessment & Plan H/H stable WBC trending down Oral Iron replacement? * Coronary artery disease involving stebbins coronary artery of stebbins heart with unstable an nayeli pectoris (HCC) Assessment & Plan 11/01/2016: Coronary artery bypass grafting x3 (VERDUZCO-LAD, rSVG-Diag, rSVG-RCA) LVEF 65% pro stoperatively. No chest pain. -Continue Amlodipine, Aspirin, Statin, Metoprolol -Lasix 20 mg daily and weight continues to be up and net positive -Lasix 40 mg IV today given up 4 kg and net positive PLAN Lasix 40 mg IV today Strict I/O daily weights Anticipate discharge in AM SUBJECTIVE DATA REVIEW OF SYSTEMS: CV: negative Resp: negative OBJECTIVE DATA TELEMETRY: Normal sinus rhythm MEDICATIONS: Scheduled PRN amLODIPine 10 mg Oral Daily aspirin 162 mg Oral Daily atorvaSTATin 40 mg Oral Nightly docusate sodium 100 mg Oral BID famotidine 20 mg Oral BID furosemide 20 mg Oral Daily levothyroxine 50 mcg Oral BID AC metoprolol tartrate 25 mg Oral BID polyethylene glycol 17 g Oral Daily nitroglycerin in dextrose Stopped (11/02/16 1650) acetaminophen, albumin, albuterol, bisacodyl, [DISCONTINUED] HYDROcodone-acetaminophen O R HYDROcodone-acetaminophen OR [DISCONTINUED] HYDROcodone-acetaminophen, lactulose, ma gnesium hydroxide, menthol, menthol throat lozenges, ondansetron, ondansetron, senna, sodium bicarbonate IMAGING: No results found. LABS Recent Labs 11/04/16 0418 WBC 17.2* HGB 9.7* HCT 29.0* PLT 205 NA 135 K 4.2 CL 99 CO2 31* BUN 12 CREA 0.46* GLU 115* CALCIUM 9.1 Lab Results Component Value Date CHOL 218 (H) 09/26/2015 LDL 127 09/26/2015 HDL 71 09/26/2015 TRIG 98 09/26/2015 VITAL SIGNS: Vitals Current Average / Min / Max Temp 37 C (98.6 F) Temp Min: 36.6 C (97.8 F) Max: 37.2 C (98.9 F) BP 108/57 BP Min: 101/59 Max: 144/69 HR 62 Pulse Av.8 Min: 62 Max: 88 RR 16 Resp Av.3 Min: 16 Max: 18 Sats 93 % on 2L/min room air Weight 82.7 kg (182 lb 5.1 oz) Admit: 78 kg (172 lb) INTAKE/OUTPUT Intake/Output Summary (Last 24 hours) at 11/05/16 1131 Last data filed at 11/05/16 0900 Gross per 24 hour Intake 1320 ml Output 750 ml Net 570 ml PHYSICAL EXAM Admit Weight: Weight: 78 kg (172 lb) Current weight: Weight: 82.7 kg (182 lb 5.1 oz) Body mass index is 31.3 kg/m. GENERAL: Pleasant, talkative in no acute distress. HEENT: Conjunctivae and lids are normal in appearance. Mucous membranes moist without pall or or cyanosis. NECK: Supple. No JVD. CHEST: Respiratory effort is normal. Clear to auscultation without crackles, rhonchi, or w heezes. CARDIAC: RRR, Normal S1 and S2, No murmurs, rubs or gallops. ABDOMEN: Soft, non-tender, nondistended with normal, active bowel sounds. EXTREMITIES: No clubbing, cyanosis, +1 lower extremity edema. PULSES: Right: DP 2+, PT 2+ Left: DP 2+, PT 2+ NEUROLOGIC: Alert and oriented to time, place and person. Normal affect. Signed by: JOSE ALBERTO [place] 11/05/2016, 11:31 Portions of this chart were created with [employer] voice recognition software. Occasional wro ng-word or "sound-alike" substitutions may have occurred due to the inherent limitations of voice recognition software. Please read the chart carefully and recognize, using context, w here those substitutions have occurred.Electronically signed by Suhail Flannery MD at 4:36 PM PDT Associated attestation - Suhail Flannery MD - 11/05/2016 4:36 PM PDTAnemia: Patient's hemoglobin is trending down. Probably reasonable to do iron panel which I have ordered If we need to replace iron I would suggest IV Coronary artery disease with bypass grafting 11/01/2016: No chest pain Overall feels quite well Follow-up can be in [place] from the cardiac standpoint They will talk with the surgeon regarding surgical follow-up and if it can be done locally or they need to come here. Suhail Flannery MD [facility] 11/05/2016 16:36 During this hospital visit, I personally interviewed and examined the patient. I confirmed the slaughter components of the history and PE. I reviewed the note as written by the midlevel pro vider, and discussed the patient with the provider team.I agree with the impressions and mamta ns and have listed any needed clarifications. Joe Quinn MD - 11/05/2016 7:30 AM PDTFormatting of this note might be differen t from the original. [facility] Daily Progress Note 11/05/2016 Pt. Name/Age/: Jaclyn Jackson 81 y.o. 1935 Med. Record Number: [id number] Date of admission: 11/01/2016 Hospital Day: 5 4 Days Post-Op LVEF: 60-70 Procedure: CABGx3 Date of Surgery: 11/01/16 Surgeon: Dr. Christina Loo MD. Anusha Flores PA-C assisting Interval Events Uneventful night. ASSESSMENT: POD# 4 S/P CABGx3 - Overall doing well, hemodynamics stable, needs BM, on min imal O2, plan home tomorrow to [place] with daughter in law. Neuro: --Hx TIA - no gross motor deficits noted. Ambulating halls well, to increase today. --Pain controlled - trying only tylenol today. Cardiac: --CAD/CABG in setting of normal LVF - hemodynamics stable, continue ASA, statin, ASA --HTN - starting to trend upwards. Continue lopressor, increase norvasc to home dose. --Dyslipidemia - continue statin. Pulmonary: --oxygenation good on 2L via NC. Likely some residual atelectasis, continue IS, aerobika st arted, gentle diuresis. GI: --HX PUD - no active issues, continue pepcid, resume PPI upon discharge --Constipation - add colace/miralx. Lactulose later today if no results. Renal: --Renal function good post-op, no labs today, diuresing, chem tomorrow. --Weight up, but by exam has minimal volume overload. Will change IV to po lasix at low dos e. Heme: --H/H/plt stable - 9.7. On ASA. --DVT ppx - SCDs while in bed. Ambulates well. ID: --Stress leukocytosis - improving as of yesterdays labs, no fevers, wounds healing well. Endo: --Hypothyroidism - continue synthroid. --Stress hyperglycemia - as per endocrine team Dispo: --Plan home with family tomorrow to [place] --Will need to f/u with [facility] in 1 month --Ok per cardiology to f/u with cards in [place] CURRENT PLAN Increase norvasc Change IV to PO lasix Laxatives Wean oxygen to off Increase activities Discharge planning for tomorrow Meds Scheduled amLODIPine 5 mg Oral Daily aspirin 162 mg Oral Daily atorvaSTATin 40 mg Oral Nightly famotidine 20 mg Oral BID levothyroxine 50 mcg Oral BID AC metoprolol tartrate 25 mg Oral BID potassium chloride 20 mEq Oral BID IV Infusions nitroglycerin in dextrose Stopped (11/02/16 1650) SUBJECTIVE No complaints except constipation. Ambulated halls twice yesterday. No sob, put back on oxy gen overnight. OBJECTIVE Telemetry: SR 70's Vitals: Temp: [36.6 C (97.9 F)-37.2 C (98.9 F)] 36.8 C (98.2 F) Pulse: [64-83] 64 Resp: [16-18] 16 BP: (101-144)/(59-69) 144/69 SpO2 Av.1 % Min: 83 % Max: 97 % Flow (L/min) Av Min: 2 Max: 2 Input/Output (last 24h): Intake/Output Summary (Last 24 hours) at 11/05/16 0730 Last data filed at 11/05/16 0615 Gross per 24 hour Intake 1200 ml Output 750 ml Net 450 ml Admission I/O: inaccurate (unmeasured urine output) Admit Weight: Weight: 78 kg (172 lb) Current weight: Weight: 82.7 kg (182 lb 5.1 oz) Physical Exam: GEN: in no acute distress, sitting in chair, eating breakfast NEURO: alert, oriented, no gross deficits noted. HEART: S1S2, RRR, no rub LUNGS: basilar crackles, otherwise full and symmetric ABD: soft, NTND, normal bowel sounds, +flatus, no bm EXT: warm, dry, trace LE edema INC: sternal inc - steri intact, clean, dry. LLE with mild ecchymosis. Labs: Recent Labs Lab 11/04/16 0418 11/02/16 0211 11/01/16 1437 WBC 17.2* 19.6* 22.8* HGB 9.7* 9.9* 11.7 HCT 29.0* 29.5* 33.7* PLT 205 244 239 Recent Labs Lab 11/04/16 0418 11/02/16 0211 11/01/16 1437 11/01/16 1425 11/01/16 1347 10/31/16 1609 NA 135 142 -- -- 139 < > 133* K 4.2 4.0 4.2 4.3 4.1 < > 3.9 CL 99 107 -- -- -- -- 96* CO2 31* 27 -- -- -- -- 29* BUN 12 17 -- -- -- -- 14 CREA 0.46* 0.75 -- -- -- -- 0.77 GLU 115* 131* -- 142* -- -- 93 < > = values in this interval not displayed. Imaging: CXR - none today Electronically signed by: Earlene Bonilla PA-C 11/05/2016 7:30 Cardiothoracic Surgery [facility] [address], [address] [place] [address] I have participated in the care of this patient and I have reviewed and agree with the pert inent clinical information with the following additions/exceptions: Continue diuresis. May be able to go home tomorrow. Electronically signed by: Joe Quinn MD, 11/05/2016 14:29 Autumn, JOSE ALBERTO Flores - 11/04/2016 11:24 AM PDTFormatting of this note might be different from the o riginal. PATIENT NAME: Jaclyn Jackson : 1935: AGE: 81 y.o. ADMISSION DATE: 11/01/2016 Hospital Day: Hospital Day: 4 Code Status: Full Code DATE OF SERVICE: 11/04/2016 JOSE ALBERTO [place] CARDIOLOGY DAILY PROGRESS NOTE PRIMARY HOSPITAL PROBLEM: Coronary artery disease involving stebbins coronary artery of stebbins heart with unstable miranda na pectoris (HCC) CHIEF COMPLAINT: Tired, incisional pain but no chest pain or shortness of breath ASSESSMENT Anemia Assessment & Plan H/H and stable WBC trending down * Coronary artery disease involving stebbins coronary artery of stebbins heart with unstable an nayeli pectoris (HCC) Assessment & Plan 11/01/2016: Coronary artery bypass grafting x3 (VERDUZCO-LAD, rSVG-Diag, rSVG-RCA) LVEF 65% pro stoperatively. -Continue Amlodipine, Aspirin, Statin, Metoprolol -ECG without acute changes PLAN Continue current medications Increase ambulation Follow up with Molecular Biology Professor in [place] SUBJECTIVE DATA REVIEW OF SYSTEMS: CV: negative Resp: negative OBJECTIVE DATA TELEMETRY: Normal sinus rhythm MEDICATIONS: Scheduled PRN amLODIPine 5 mg Oral Daily aspirin 162 mg Oral Daily atorvaSTATin 40 mg Oral Nightly famotidine 20 mg Oral BID levothyroxine 50 mcg Oral BID AC metoprolol tartrate 25 mg Oral BID potassium chloride 20 mEq Oral BID clevidipine nitroglycerin in dextrose Stopped (11/02/16 1650) phenylephrine Stopped (11/02/16 0500) acetaminophen, albumin, albuterol, bisacodyl, docusate sodium, HYDROcodone-acetaminophen * *OR HYDROcodone-acetaminophen OR HYDROcodone-acetaminophen, magnesium hydroxide, menth ol, menthol throat lozenges, ondansetron, ondansetron, polyethylene glycol, senna, sodium bi carbonate IMAGING: No results found. LABS Recent Labs 11/04/16 0418 11/02/16 0211 11/01/16 1437 11/01/16 1425 11/01/16 1347 WBC 17.2* 19.6* 22.8* -- -- HGB 9.7* 9.9* 11.7 -- -- HCT 29.0* 29.5* 33.7* -- -- PLT 205 244 239 -- -- NA 135 142 -- -- 139 K 4.2 4.0 4.2 4.3 4.1 CL 99 107 -- -- -- CO2 31* 27 -- -- -- BUN 12 17 -- -- -- CREA 0.46* 0.75 -- -- -- GLU 115* 131* -- 142* -- CALCIUM 9.1 8.5 -- -- -- Lab Results Component Value Date CHOL 218 (H) 09/26/2015 LDL 127 09/26/2015 HDL 71 09/26/2015 TRIG 98 09/26/2015 VITAL SIGNS: Vitals Current Average / Min / Max Temp 36.6 C (97.9 F) Temp Min: 36.6 C (97.9 F) Max: 37.8 C (100.1 F) BP 113/56 BP Min: 113/56 Max: 136/67 HR 82 Pulse Av.9 Min: 65 Max: 83 RR 18 Resp Av.3 Min: 16 Max: 18 Sats 92 % on 2L/min room air Weight 83.5 kg (184 lb 1.4 oz) Admit: 78 kg (172 lb) INTAKE/OUTPUT Intake/Output Summary (Last 24 hours) at 11/04/16 1124 Last data filed at 11/04/16 0800 Gross per 24 hour Intake 1520 ml Output 1325 ml Net 195 ml PHYSICAL EXAM Admit Weight: Weight: 78 kg (172 lb) Current weight: Weight: 83.5 kg (184 lb 1.4 oz) Body mass index is 31.6 kg/m. GENERAL: Pleasant, talkative in no acute distress. HEENT: Conjunctivae and lids are normal in appearance. Mucous membranes moist without pall or or cyanosis. NECK: Supple. No JVD. CHEST: Respiratory effort is normal. Clear to auscultation without crackles, rhonchi, or w heezes. CARDIAC: RRR, Normal S1 and S2, No murmurs, rubs or gallops. ABDOMEN: Soft, non-tender, nondistended with normal, active bowel sounds. EXTREMITIES: No clubbing, cyanosis, or edema. PULSES: Right: DP 2+, PT 2+ Left: DP 2+, PT 2+ NEUROLOGIC: Alert and oriented to time, place and person. Normal affect. Signed by: JOSE ALBERTO [place] 11/04/2016, 11:24 Portions of this chart were created with [employer] voice recognition software. Occasional wro ng-word or "sound-alike" substitutions may have occurred due to the inherent limitations of voice recognition software. Please read the chart carefully and recognize, using context, w here those substitutions have occurred.Electronically signed by Suhail Flannery MD at 5:33 PM PDT Associated attestation - Alma Delia, Suhail Miller MD - 11/04/2016 5:33 PM PDTAnemia: I have not characterized this anemia, but think at this point standard oral therapy is reas onable. I am adding an iron panel in AM, since in this situation I do like IV iron more then oral r epletion CAD: No chest pain that sound anginal, and overall she is felling better. I think that the firs t day was difficult, but she feels much better today. She is still on Amlodipine which may be helpful for small vessel disease. At this point she is not on an ARB. LVEF was normal o n presentation. Followup: She wants her followup in [place] and that is fine by me. I am not sure if surgical fo llowup in [place] is acceptable. Suhail Flannery MD [facility] 11/04/2016 17:32 During this hospital visit, I personally interviewed and examined the patient. I confirmed the slaughter components of the history and PE. I reviewed the note as written by the midlevel pro vider, and discussed the patient with the provider team.I agree with the impressions and mamta ns and have listed any needed clarifications. Joe Quinn MD - 11/04/2016 8:02 AM PDTFormatting of this note might be differen t from the original. CV SURGERY DAILY PROGRESS NOTE 3 Days Post-Op PATIENT NAME: Jaclyn Jackson DATE OF : 1935 MED RECORD: [id number] Pre-OP Dx Coronary artery disease Hypertension Dyslipidemia history of transient ischemic attack Hypothyroidism mild aortic regurgitation and calcified mitral annulus with calcium nodule in posterior mitral leaflet. Procedure 11/01/16 1. Coronary artery bypass surgery times 3, VERDUZCO to LAD, saphenous vein graft to diagonal, saphenous vein graft to right coronary artery. 2. Endoscopic vein harvest, left greater saphenous vein. SURGEON: Christina Loo MD METAL HANGER: Anusha Flores PA-C SUBJECTIVE Sitting in chair. No c/o's. OBJECTIVE Vitals: Temp: 36.6 C (97.9 F) BP: 113/56 Pulse: 83 Resp: 18 SpO2: 94 % 2L NC Weight: Today's Weight: 83.5 kg (184 lb 1.4 oz) Admit Weight: 78 kg (172 lb) 24 hour I/O: Intake/Output Summary (Last 24 hours) at 11/04/16 0802 Last data filed at 11/04/16 0600 Gross per 24 hour Intake 2000 ml Output 1725 ml Net 275 ml I/O since admit: +1.2 L EXAM: General - Awake, Alert, NAD Heart - RRR, no M/R/G/C Lungs - Bibasilar crackles Abdomen - Soft NT/ND, + Bowel Sounds Extremities - 1+ LE edema, Distal pulses intact Incision - C/D/I, no redness or drainage noted. + TPW MEDICATIONS: SCHEDULED: amLODIPine 5 mg Oral Daily aspirin 162 mg Oral Daily atorvaSTATin 40 mg Oral Nightly famotidine 20 mg Oral BID levothyroxine 50 mcg Oral BID AC metoprolol tartrate 25 mg Oral BID IV: clevidipine nitroglycerin in dextrose Stopped (11/02/16 1650) phenylephrine Stopped (11/02/16 0500) PRN: acetaminophen, albumin, albuterol, bisacodyl, docusate sodium, HYDROcodone-acetaminophen OR HYDROcodone-acetaminophen OR HYDROcodone-acetaminophen, magnesium hydroxide, mentho l, menthol throat lozenges, ondansetron, ondansetron, polyethylene glycol, senna, sodium bic arbonate Labs reviewed RECENT SELECT LAB: Recent Labs Lab 11/04/168 11/02/16 0211 10/31/16 1609 WBC 17.2* 19.6* < > 11.4* HGB 9.7* 9.9* < > 14.7 HCT 29.0* 29.5* < > 43.1 PLT 205 244 < > 380 INR -- -- -- 1.0 < > = values in this interval not displayed. Recent Labs Lab 11/04/16 0418 11/02/16 0211 NA 135 142 K 4.2 4.0 BUN 12 17 CREA 0.46* 0.75 CALCIUM 9.1 8.5 GLU 115* 131* No results for input(s): BNP in the last 168 hours. Invalid input(s): CKTOTAL, TROPONINI Lab Results Component Value Date CHOL 218 (H) 09/26/2015 TRIG 98 09/26/2015 HDL 71 09/26/2015 LDL 127 09/26/2015 Recent Labs Lab 11/01/16 1825 11/01/16 1747 11/01/16 1624 11/01/16 1425 PHART 7.36* 7.34* 7.46 7.47 PO2ART 113* 118* 116* 156* [id number] 44* 47* 33 35 W2UPUAPS 95.2 95.6 95.7 96.8 BEART -- -- 0.2 2.0 DIAGNOSTIC STUDIES: CXR: none today TELEMETRY: SR ECHO: 11/01/16, EF~60-70% ASSESSMENT/PLAN Coronary artery disease --s/p CABG x3 --on asa, statin, BB --remove TPW today Anemia --stable at 9.7/29 Leukocytosis --decreasing daily. Anticipate Normal post-op response. Follow Stress hyperglycemia --endocrine following Volume + --diurese Disposition --pt concerened with stairs at home. Needs to work with PT regarding this --home ~2d Serene Castillo PA-C [facility] 11/04/2016, 8:02 I have participated in the care of this patient and I have reviewed and agree with the pert inent clinical information above including history, exam, and recommendations with the follo wing additions/exceptions: Doing well. Wean O2. Needs BM. Likely home Friday. Electronically signed by: Joe Quinn MD, 11/04/2016 16:59 acia-Flor Castellon ARNP - 11/03/2016 12:24 PM PDTFormatting of this note might be different from the o riginal. Blood Sugar Management Progress Note Patient: Jaclyn Jackson Date of : 1935 Admit Date: 11/01/2016 Date of Service: 11/03/2016 PCP: Johanne Gunderson Admitting Physician: Christina Loo MD Code Status: Full Code Provider Requesting Consult: Dr. Loo Reason for Consult/Diabetes Chief Complaint: Hospital blood glucose management Brief Overview of Hospital Course: 81 y.o. female admitted 11/01/2016 by Christina Loo MD for CABG x 3. She is stable postop and progressing. Transferred to tele unit. Assessment for glucose management: Stress Hyperglycemia due to surgery resolving quickly. Labs reviewed personally, BG range over the last 24 hours in acceptable range. Renal funct ion: wnl Plan: Corrective insulin: Humalog scale 1 can be dc'd. Will sign off. Continue to assess BG and intake, modify insulin doses as needed. Education: Discussed hospital routines for glucose management after cardiac surgery, inclu tamia rationale for temporary insulin infusion and subcutaneous insulin. Reviewed impact of stress response on blood sugar levels and increase in infection risk with high or variable b lood sugars. All questions answered to patient/family satisfaction. Recent Labs Lab 11/03/16 1124 11/03/16 0642 11/03/16 0410 11/02/16 2046 11/02/16 1615 11/02/16 1124 11/02/16 1007 11/02/16 0906 11/02/16 0822 11/02/16 0706 11/02/16 0211 11/01/16 1425 10/31/16 1609 POCGLU 131* 109* 117* 101* 133* 91 98 100* 104* 103* < > -- < > -- < > -- GLU -- -- -- -- -- -- -- -- -- -- -- 131* -- 142* -- 93 CREA -- -- -- -- -- -- -- -- -- -- -- 0.75 -- -- -- 0.77 EGFR -- -- -- -- -- -- -- -- -- -- -- >60 -- -- -- >60 < > = values in this interval not displayed. Lab Results Component Value Date HBA1C 5.4 10/31/2016 Diabetes HPI: No DM Dx Diet Orders Diet Fat & Cholesterol Modified; Effective Now: diet starting at 11/02 0659 Review of Systems: General ROS: Fatigued. No recent weight change, fever, chills Ophthalmic ROS: No visual changes reported ENT ROS: No complaint of sore throat or dysphagia Respiratory ROS: Denies shortness of breath at rest. Cardiovascular ROS: Postoperative chest pain controlled. No anginal chest pain at rest. Gastrointestinal ROS: Denies abdominal pain, nausea, vomiting Genito-Urinary ROS: No dysuria, new or recent polyuria Musculoskeletal ROS: No new joint pain or swelling Neurological ROS: Denies focal weakness or numbness. No new problems with speaking or swall owing Hematological and Lymphatic ROS: No abnormal bleeding, no abnormal bruising Dermatological ROS: No new lesions or rashes History: Past Medical History: Diagnosis Date May 2014 Arthritis Asthma 1960s Cataract Cervical radiculopathy 08/29/2016 Chronic low back pain 08/24/2014 Clotting disorder ([facility]) 2013 duodenal ulcer COPD (chronic obstructive pulmonary disease) ([facility]) DDD (degenerative disc disease), cervical 07/25/2016 DDD (degenerative disc disease), lumbar 08/24/2014 DJD (degenerative joint disease) 07/08/2013 Encounter for blood transfusion November 2013 Environmental allergies Essential hypertension Facet arthritis of lumbar region (HCC) 08/24/2014 Foraminal stenosis of cervical region 07/25/2016 Fracture of foot approx 2008 left foot, fall/missed step GERD 04/17/2010 Heart murmur slight, diagnosed years ago (Dr. Crooks) Hep B complicating Hepatitis A 1967 ?? Herpes zoster 05/03/2011 High cholesterol Hyperplastic colon polyp 03/28/10 Hypertension Hypothyroidism Lactose intolerance Miscarriage x 2 Mononucleosis Osteoporosis PUD (peptic ulcer disease) 11/08/2013 Pulmonary nodules 12/08/2013 Spondylosis, cervical 08/30/2010 Stenosis of cervical spine 07/25/2016 Stroke ([facility]) Apr 2010 TIA 05/08/2010 Tinea corporis 01/31/2015 UGIB (upper gastrointestinal bleed) 11/14/2013 Valvular heart disease 05/23/2010 Vertigo 09/03/2012 Past Surgical History: Procedure Laterality Date CARDIAC CATHERIZATION N/A 10/16/2016 Procedure: CV LHC; Surgeon: Irina Simms MD; Location: [facility] CV LAB COLONOSCOPY 05/2002; 03/28/10 next due 03/2020 FOOT FRACTURE SURGERY Left 2004 HEMORRHOID SURGERY [id number] Removal lower left nodules 2004 THYROIDECTOMY TONSILLECTOMY AND ADENOIDECTOMY 1955 UPPER GASTROINTESTINAL ENDOSCOPY 11/15/2013 EGD * IP RM: [id number] * ; Laterality: N/A; Surgeon: Lauri Garrison MD; Location: [facility] UPPER GASTROINTESTINAL ENDOSCOPY 11/04/2013 EGD IP 449; Laterality: N/A; Surgeon: Samm Pandya MD; Location: [facility] reports that she quit smoking about 40 years ago. Her smoking use included Cigarettes. She started smoking about 61 years ago. She has a 63.00 pack-year smoking history. She has neve r used smokeless tobacco. She reports that she does not drink alcohol or use drugs. Family History Problem Relation Age of Onset Prostate cancer Father Arthritis Father 59 Cancer Father Stroke Father from femal hormones for his cancer Breast cancer Mother 75 Gout Mother Depression Mother High blood pressure Mother Cancer Mother Colon cancer Sister ileostomy High blood pressure Sister Brain cancer Sister 59 Migraines Sister Thyroid disease Sister in 2 half-sisters Cancer Sister High blood pressure Sister Sleep Apnea Sister Stroke Maternal Grandmother Cancer Son 20 Non-Hodgkins lymphoma Cancer Son Heart disease Maternal Uncle Crohn's disease Sister Cancer Brother Stroke Paternal Grandmother in her 50s Allergies Allergen Reactions Iodinated Diagnostic Agents Hives Diclofenac Sodium Other (See Comments) Duodenal Ulcer October 2013 Alendronate Sodium Patient not remember Celecoxib Celebrex - Patient not remember Risedronate Sodium Actonel - Patient not remember Penicillins Diarrhea Caused "black diarrhea" when she had her 4th child. Yellow Dye Itching Outpatient Medications albuterol 90 mcg/puff inhaler (Taking) 2 puff po q 4 hours prn amLODIPine (NORVASC) 10 MG tablet (Taking) Take 10 mg by mouth Daily. BIOTIN PO (Taking) Take 500 mg by mouth Daily. Calcium Citrate-Vitamin D (CITRACAL MAXIMUM PO) (Taking) TABS Take one by mouth three autumn es daily. cetirizine (ZYRTEC) 10 mg tablet (Discontinued) Take 10 mg by mouth as needed for Allergie s. Cholecalciferol (D-5000 PO) (Taking) Take 5,000 Units by mouth Daily. diclofenac (VOLTAREN) 1% GEL (Taking) Apply 1 g topically Daily as needed. diphenhydrAMINE (BENADRYL) 25 mg tablet (Taking) Take 25 mg by mouth nightly as needed fo r Itching. eszopiclone (LUNESTA) 2 MG TABS (Taking) Take 1 tablet by mouth nightly. furosemide (LASIX) 20 mg tablet (Taking) Take 1 tablet by mouth Daily. GARLIC (Taking) Take 1,000 mg by mouth Daily. Glucosamine-Chondroitin (COSAMIN DS PO) (Taking) Take 2 tablets by mouth Daily. HYDROcodone-acetaminophen (NORCO) 7.5-325 mg per tablet (Taking) One po qd prn pain, avoi d routine use, 90 day supply L-Lysine HCl 500 MG CAPS (Taking) Take 500 mg by mouth Daily. levothyroxine (SYNTHROID, LEVOTHROID) 50 mcg tablet (Taking) Take 50 mcg by mouth Twice d aily with lunch/dinner. magnesium-calcium carbonate (SLOW-MAG) 71.5-119 MG TBEC (Taking) Take 71.5-119 mg by mout h Daily. Melatonin (MELATONIN MAXIMUM STRENGTH) 5 MG TABS (Taking) Take 5 mg by mouth Daily as nee ded. metoprolol succinate (TOPROL-XL) 50 mg 24 hr tablet (Taking) TAKE ONE-HALF TABLET BY MOUT H EVERY DAY Multiple Vitamins-Minerals (OCUVITE ADULT 50+) CAPS (Taking) Take by mouth Daily. nitroglycerin (NITROSTAT) 0.4 mg SL tablet (Taking) Place 1 tablet under the tongue every 5 minutes as needed for Chest pain. omeprazole (PRILOSEC) 20 mg capsule (Taking) Take 20 mg by mouth every morning (before br eakfast). polyethylene glycol (MIRALAX) packet (Taking) Take 17 g by mouth Daily as needed. Took it once on the vitamin B-12 (CYANOCOBALAMIN) 1000 MCG tablet (Taking) Take 1,000 mcg by mouth Daily. Physical: Vital Signs 11/01 0700 - 11/02 0659 11/02 07 - 11/03 0659 11/03 07 - 11/03 1224 Most Rec ent Temp (C) 36.2 - 37.9 35.9 - 37.2 36.4 - 36.7 36.7 (98.1) Pulse (!)46 - 96 69 - 81 76 76 Resp 11 - 23 8 - 24 18 18 BP 90/65 - 138/63 113/55 - 138/71 129/72 - 133/61 129/72 Arterial Line BP 2 56/23 - 155/66 124/51 - 157/51 132/46 SpO2 (%) 95 - 100 (!)89 - 99 92 - 95 92 Weight (kg) 81.1 Body mass index is 30.69 kg/m. I/O last 3 completed shifts: In: 1598.2 [P.O.:100; I.V.:1248.2; IV Piggyback:250] Out: 1070 [Urine:920; Chest Tube:150] General: no acute distress, non-toxic appearance HEENT: Head normocephalic and atraumatic. No nasal deformity. Oropharynx is clear and mois t Respiratory: No respiratory distress, no acute changes Cardiovascular: Normal rate, no acute changes GI: Soft, nondistended Musculoskeletal: No tenderness, no deformities. No significant joint swelling Integument: Well hydrated, no rashes Neurologic: Alert & oriented x 3, cranial nerves 2-12 grossly intact, normal movement of a ll extremities, no focal motor deficits noted, no tremor Psychiatric: Speech and behavior appropriate Labs and Imaging: Recent Labs Lab 11/02/16 0211 11/01/16 1437 10/31/16 1609 WBC 19.6* 22.8* 11.4* HGB 9.9* 11.7 14.7 HCT 29.5* 33.7* 43.1 PLT 244 239 380 Recent Labs Lab 11/02/16 0211 11/01/16 1437 11/01/16 1425 11/01/16 1347 11/01/16 1231 11/01/16 1150 11/01/16 0752 10/31/16 1609 NA 142 -- -- 139 137 -- -- 135 133* K 4.0 4.2 4.3 4.1 4.5 5.9* < > 3.6 3.9 CL 107 -- -- -- -- -- -- -- 96* CO2 27 -- -- -- -- -- -- -- 29* ANIONGAP 8 -- -- -- -- -- -- -- 8 BUN 17 -- -- -- -- -- -- -- 14 CREA 0.75 -- -- -- -- -- -- -- 0.77 EGFR >60 -- -- -- -- -- -- -- >60 GLU 131* -- 142* -- -- -- -- -- 93 < > = values in this interval not displayed. Recent Labs Lab 10/31/16 1609 INR 1.0 Lab Results Component Value Date CHOL 218 (H) 09/26/2015 LDL 127 09/26/2015 HDL 71 09/26/2015 TRIG 98 09/26/2015 Microbiology Results (72 hrs) Procedure Component Value Units Date/Time MRSA NAAT [[id number]] Collected: 10/31/16 1520 Order Status: Completed Lab Status: Final result Updated: 10/31/16 8375 Specimen: Respiratory from Nasal/Nose Specimen Source Nasal MRSA BY PCR. Negative Xr Chest Ap Portable Result Date: 11/02/2016 CHEST PORTABLE ONE VIEW CLINICAL INFORMATION: Post open heart surgery. Now having chest di scomfort. COMPARISON: X-ray yesterday. FINDINGS/IMPRESSION: 1. ET tube and NG tube have be en removed. The remaining lines and support devices are unchanged in position. 2. Low lung volumes. There are increased hazy reticular opacities in the perihilar regions and lung bas es, which may reflect atelectasis or interstitial edema. Prominent gastric air bubble. 3. C ardiomediastinal contours are stable. 4. No visible pneumothorax. Signed by: Flora Larsen lora Xr Chest Ap Portable Result Date: 11/01/2016 CHEST SINGLE VIEW CLINICAL INFORMATION: Post open heart. COMPARISON: Two view chest dated 10/31/2016. FINDINGS: Interval postoperative changes of median sternotomy and CABG. Mild b ibasilar densities, likely atelectasis. No pneumothorax. Cardiac silhouette is unchanged. Lines and support devices as follows: Endotracheal tube tip is 4.2 cm above the lara. Lef t IJ central venous catheter tip projects over the left superior mediastinum. Distal enteric tube tip is within the stomach. Mediastinal and left pleural drains are in place. IMPRESSI ON: 1. Expected postoperative changes status post median sternotomy and CABG. 2. Left IJ haritha tral venous catheter tip projects over the left superior mediastinum and may be within a dup licated SVC, left-sided SVC, left brachiocephalic vein or other vessel. Signed by: Jose Rockwell All pertinent labs and imaging have been reviewed. Refer to the Assessment and Plan for det ails on management. Total time spent with patient/family: 15 minutes spent with patient and on the patient's unit, with over 50% spent in counseling and/or coordination of care. Please refer to Assessment and Plan for details. Electronically signed by: Flor Lynch Diabetes team, [facility] [phone] Isaias Leyva ARNP - 11/03/2016 10:37 AM PDT PATIENT NAME: Jaclyn Jackson : 1935: AGE: 81 y.o. ADMISSION DATE: 11/01/2016 Hospital Day: Hospital Day: 3 Code Status: Full Code DATE OF SERVICE: 11/03/2016 JOSE ALBERTO [place] CARDIOLOGY DAILY PROGRESS NOTE PRIMARY HOSPITAL PROBLEM: Coronary artery disease involving stebbins coronary artery of stebbins heart with unstable miranda na pectoris (HCC) CHIEF COMPLAINT: Pain better controlled, walking the hallways ASSESSMENT Anemia Assessment & Plan No CBC from this AM, yesterday H/H 9.9/29.5 CBC in AM * Coronary artery disease involving stebbins coronary artery of stebbins heart with unstable an nayeli pectoris (HCC) Assessment & Plan 11/01/2016: Coronary artery bypass grafting x3 (VERDUZCO-LAD, rSVG-Diag, rSVG-RCA) LVEF 65% pro stoperatively. -Continue Amlodipine, Aspirin, statin, Metoprolol -ECG without acute changes PLAN Continue current medications Patient would like to follow up with cardiology in [place] SUBJECTIVE DATA REVIEW OF SYSTEMS: CV: negative Resp: negative OBJECTIVE DATA TELEMETRY: Normal sinus rhythm MEDICATIONS: Scheduled PRN amLODIPine 5 mg Oral Daily aspirin 162 mg Oral Daily atorvaSTATin 40 mg Oral Nightly famotidine 20 mg Oral BID insulin lispro 0-6 Units Subcutaneous 5x Daily AC, HS and 3AM levothyroxine 50 mcg Oral BID AC metoprolol tartrate 25 mg Oral BID clevidipine nitroglycerin in dextrose Stopped (11/02/16 1650) phenylephrine Stopped (11/02/16 0500) acetaminophen, albumin, albuterol, bisacodyl, dextrose, Hypoglycemia Management AND PO CT Glucose AND dextrose, docusate sodium, HYDROcodone-acetaminophen, magnesium hydroxide , menthol, menthol throat lozenges, ondansetron, ondansetron, polyethylene glycol, senna, so dium bicarbonate IMAGING: Xr Chest Ap Portable Result Date: 11/02/2016 CHEST PORTABLE ONE VIEW CLINICAL INFORMATION: Post open heart surgery. Now having chest di scomfort. COMPARISON: X-ray yesterday. FINDINGS/IMPRESSION: 1. ET tube and NG tube have be en removed. The remaining lines and support devices are unchanged in position. 2. Low lung volumes. There are increased hazy reticular opacities in the perihilar regions and lung bas es, which may reflect atelectasis or interstitial edema. Prominent gastric air bubble. 3. C ardiomediastinal contours are stable. 4. No visible pneumothorax. Signed by: Flora Larsen lora Xr Chest Ap Portable Result Date: 11/01/2016 CHEST SINGLE VIEW CLINICAL INFORMATION: Post open heart. COMPARISON: Two view chest dated 10/31/2016. FINDINGS: Interval postoperative changes of median sternotomy and CABG. Mild b ibasilar densities, likely atelectasis. No pneumothorax. Cardiac silhouette is unchanged. Lines and support devices as follows: Endotracheal tube tip is 4.2 cm above the lara. Lef t IJ central venous catheter tip projects over the left superior mediastinum. Distal enteric tube tip is within the stomach. Mediastinal and left pleural drains are in place. IMPRESSI ON: 1. Expected postoperative changes status post median sternotomy and CABG. 2. Left IJ haritha tral venous catheter tip projects over the left superior mediastinum and may be within a dup licated SVC, left-sided SVC, left brachiocephalic vein or other vessel. Signed by: Jose Rockwell Recent Labs 11/02/16 0211 11/01/16 1437 11/01/16 1425 11/01/16 1347 11/01/16 1231 10/31/16 1609 WBC 19.6* 22.8* -- -- -- -- 11.4* HGB 9.9* 11.7 -- -- -- -- 14.7 HCT 29.5* 33.7* -- -- -- -- 43.1 PLT 244 239 -- -- -- -- 380 NA 142 -- -- 139 137 < > 133* K 4.0 4.2 4.3 4.1 4.5 < > 3.9 CL 107 -- -- -- -- -- 96* CO2 27 -- -- -- -- -- 29* BUN 17 -- -- -- -- -- 14 CREA 0.75 -- -- -- -- -- 0.77 GLU 131* -- 142* -- -- -- 93 CALCIUM 8.5 -- -- -- -- -- 9.9 INR -- -- -- -- -- -- 1.0 < > = values in this interval not displayed. Lab Results Component Value Date CHOL 218 (H) 09/26/2015 LDL 127 09/26/2015 HDL 71 09/26/2015 TRIG 98 09/26/2015 VITAL SIGNS: Vitals Current Average / Min / Max Temp 36.4 C (97.6 F) Temp Min: 35.9 C (96.6 F) Max: 37.2 C (99 F) BP 133/61 BP Min: 113/55 Max: 136/66 HR 76 Pulse Av.5 Min: 70 Max: 81 RR 18 Resp Av.5 Min: 12 Max: 24 Sats 95 % on 1L/min nasal cannula Weight 81.1 kg (178 lb 12.7 oz) Admit: 78 kg (172 lb) INTAKE/OUTPUT Intake/Output Summary (Last 24 hours) at 11/03/16 1037 Last data filed at 11/03/16 0900 Gross per 24 hour Intake 1147.7 ml Output 465 ml Net 682.7 ml PHYSICAL EXAM Admit Weight: Weight: 78 kg (172 lb) Current weight: Weight: 81.1 kg (178 lb 12.7 oz) Body mass index is 30.69 kg/m. GENERAL: Pleasant, talkative in no acute distress. HEENT: Conjunctivae and lids are normal in appearance. Mucous membranes moist without pall or or cyanosis. NECK: Supple. No JVD. CHEST: Respiratory effort is normal. Clear to auscultation without crackles, rhonchi, or w heezes. CARDIAC: RRR, Normal S1 and S2, No murmurs, rubs or gallops. ABDOMEN: Soft, non-tender, nondistended with normal, active bowel sounds. EXTREMITIES: No clubbing, cyanosis, or edema. PULSES: Right: DP 2+, PT 2+ Left: DP 2+, PT 2+ NEUROLOGIC: Alert and oriented to time, place and person. Normal affect. Signed by: JOSE ALBERTO [place] 11/03/2016, 10:37 Portions of this chart were created with [employer] voice recognition software. Occasional wro ng-word or "sound-alike" substitutions may have occurred due to the inherent limitations of voice recognition software. Please read the chart carefully and recognize, using context, w here those substitutions have occurred.Electronically signed by Suhail Flannery MD at 3:57 PM PDT Associated attestation - Suhail Flannery MD - 11/03/2016 3:57 PM PDTShe clearly feels much better than she did yesterday She's been on walking the halls without problems She has an established plate maker [employer] in [place] up with her. Suhail Flannery MD [facility] 11/03/2016 15:57 During this hospital visit, I personally interviewed and examined the patient. I confirmed the slaughter components of the history and PE. I reviewed the note as written by the midlevel pro vider, and discussed the patient with the provider team.I agree with the impressions and mamta ns and have listed any needed clarifications.Mando Calles MD - 11/03/2016 8:58 AM P DT [facility] CARDIOTH[facility]ACIC SURGERY PROGRESS NOTE Pt. Name/Age/: Jaclyn Jackson 81 y.o. 1935 Med. Record Number: [id number] Date of admission: 11/01/2016 POD #2 Procedure: CABG X 3 Surgeon: Eze Subjective General: alert and oriented New complaints: none Pain: well controlled. Eating well Objective: Temp: 35.9 C (96.6 F) BP: 136/66 Pulse: 74 Resp: 16 SpO2: 93 % on Min/Max Temp past 24 hours:Temp Av.7 C (98 F) Min: 35.9 C (96.6 F) Max: 37. 2 C (99 F) Intake/Output Summary (Last 24 hours) at 11/03/16 0858 Last data filed at 11/03/16 0700 Gross per 24 hour Intake 667.7 ml Output 545 ml Net 122.7 ml Wt. Admission: Weight: 78 kg (172 lb) Wt. Current: Weight: 81.1 kg (178 lb 12.7 oz) Infusions: clevidipine nitroglycerin in dextrose Stopped (11/02/16 1650) phenylephrine Stopped (11/02/16 0500) Active Medications: amLODIPine 5 mg Oral Daily aspirin 162 mg Oral Daily atorvaSTATin 40 mg Oral Nightly famotidine 20 mg Oral BID insulin lispro 0-6 Units Subcutaneous 5x Daily AC, HS and 3AM levothyroxine 50 mcg Oral BID AC metoprolol tartrate 25 mg Oral BID Neuro: intact Heart: normal rate, regular rhythm, normal S1, S2, no murmurs, rubs, clicks or gallops Respiratory rales at bases B Sternum: Stable Abdomen: soft, non-tender, without masses or organomegaly Extremities: peripheral pulses normal, no pedal edema, no clubbing or cyanosis Wounds: well approximated incision: CT output: NA/8hrshift. Rhythm Strip: normal sinus Imaging: Xr Chest Ap Portable Result Date: 11/02/2016 CHEST PORTABLE ONE VIEW CLINICAL INFORMATION: Post open heart surgery. Now having chest di scomfort. COMPARISON: X-ray yesterday. FINDINGS/IMPRESSION: 1. ET tube and NG tube have be en removed. The remaining lines and support devices are unchanged in position. 2. Low lung volumes. There are increased hazy reticular opacities in the perihilar regions and lung bas es, which may reflect atelectasis or interstitial edema. Prominent gastric air bubble. 3. C ardiomediastinal contours are stable. 4. No visible pneumothorax. Signed by: Flora Larsen Xr Chest Ap Portable Result Date: 11/01/2016 CHEST SINGLE VIEW CLINICAL INFORMATION: Post open heart. COMPARISON: Two view chest dated 10/31/2016. FINDINGS: Interval postoperative changes of median sternotomy and CABG. Mild b ibasilar densities, likely atelectasis. No pneumothorax. Cardiac silhouette is unchanged. Lines and support devices as follows: Endotracheal tube tip is 4.2 cm above the lara. Lef t IJ central venous catheter tip projects over the left superior mediastinum. Distal enteric tube tip is within the stomach. Mediastinal and left pleural drains are in place. IMPRESSI ON: 1. Expected postoperative changes status post median sternotomy and CABG. 2. Left IJ haritha tral venous catheter tip projects over the left superior mediastinum and may be within a dup licated SVC, left-sided SVC, left brachiocephalic vein or other vessel. Signed by: Jose Rockwell Recent Labs 11/02/16 0211 11/01/16 1437 11/01/16 1425 11/01/16 1347 11/01/16 1231 10/31/16 1609 WBC 19.6* 22.8* -- -- -- -- 11.4* HGB 9.9* 11.7 -- -- -- -- 14.7 HCT 29.5* 33.7* -- -- -- -- 43.1 PLT 244 239 -- -- -- -- 380 NA 142 -- -- 139 137 < > 133* K 4.0 4.2 4.3 4.1 4.5 < > 3.9 CL 107 -- -- -- -- -- 96* CO2 27 -- -- -- -- -- 29* BUN 17 -- -- -- -- -- 14 CREA 0.75 -- -- -- -- -- 0.77 GLU 131* -- 142* -- -- -- 93 CALCIUM 8.5 -- -- -- -- -- 9.9 INR -- -- -- -- -- -- 1.0 < > = values in this interval not displayed. Lab Results Component Value Date CHOL 218 (H) 09/26/2015 CHOL 179 10/22/2013 CHOL 200 02/19/2011 HDL 71 09/26/2015 HDL 62 10/22/2013 HDL 54 02/19/2011 TRIG 98 09/26/2015 TRIG 80 10/22/2013 TRIG 90 02/19/2011 Diagnostic studies: Available data and images were reviewed personally. See reports. Signi ficant results and findings are addressed here or in the Assessment and Plan. Assessment and Plan: S/P cabg x 3 Hemodynamically stable Going for walk now DC PW tomorrow Progress care with ambulation, IS Q1hr WA, shower daily. Problem List Patient Active Problem List Diagnosis Hypothyroidism VAGINITIS, ATROPHIC Hyperlipidemia, mixed DIZZINESS OSTEOPOROSIS Osteoarthritis Hepatitis A in 1967 FATIGUE GERD TIA Valvular heart disease SPONDYLOSIS, CERVICAL Asthma EXTRINSIC ASTHMA, UNSPECIFIED OSTEOARTHRITIS, CARPOMETACARPAL JOINT, RIGHT THUMB HERPES ZOSTER ABDOMINAL PAIN, RIGHT UPPER QUADRANT Lacunar infarction PERIPHERAL NEUROPATHY Vertigo Preventative health care Multiple contusions Right ankle pain Gastroenteritis Bronchitis DJD (degenerative joint disease) Thoracic sprain and strain GI bleed Anemia due to blood loss, acute Troponin I above reference range Lytic lesion of bone on x-ray Constipation PUD (peptic ulcer disease) UGIB (upper gastrointestinal bleed) Anemia Bone fibrous dysplasia Pulmonary nodules Right foot pain Thoracic back pain Epistaxis Depression with anxiety Pulmonary nodule, right Inflammation of blood vessels Chronic low back pain DDD (degenerative disc disease), lumbar Facet arthritis of lumbar region Elevated troponin Other specified anemias Murmur Neuropathy Tinea corporis Generalized anxiety disorder URI (upper respiratory infection) Varicose veins Essential hypertension with goal blood pressure less than 130/80 Allergic rhinitis Hives of unknown origin Stress reaction Aortic valve insufficiency Stenosis of cervical spine Foraminal stenosis of cervical region DDD (degenerative disc disease), cervical Cervical radiculopathy Coronary artery disease involving stebbins coronary artery of stebbins heart with unstable angina pectoris Stress hyperglycemia Electronically signed by: Otoniel Conroy PA-C Physician [employer] Supervisor [facility] Cardiothoracic Surgery 11/03/2016 8:58 [facility] Addendum: Agree with above. Making good progress. Mnado Calles MD [facility], Suhail washington MD - 11/02/2016 11:21 AM PDT [facility]: PATIENT NAME: Jaclyn Jackson : 1935: AGE: 81 y.o. ADMISSION DATE: 11/01/2016 Admitting Provider: Christina Loo MD Primary Provider: FLORA Morgan Hospital Day: Hospital Day: 2 LOS: 1 Code Status: Full Code Molecular Biology Professor: Suhail Flannery MD [facility] DATE OF SERVICE: 11/02/2016 PRIMARY HOSPITAL PROBLEM: CABG for 3 VD from [facility] CHIEF COMPLAINT: Chest pain and nausea ASSESSMENT Discussion: Chest pain and nausea Will reassess with EKG, but seems incisional to me EKG looks fine, minimal change Labs look good, and overall she seems to be doing well CT tube are out, and NSR Anemia Assessment & Plan Actually looks good with 9.9 post op (11.7 prior). Coronary artery disease involving stebbins coronary artery of stebbins heart with unstable miranda na pectoris (HCC) Assessment & Plan 11/01/2016: Coronary artery bypass grafting x3 (VERDUZCO-LAD, rSVG-Diag, rSVG-RCA) LVEF 65% pro stoperatively. Having chest pain and nausea.. Will order EKG, but clinically think that the most likely i s postoperative Chest Pain. Physical exam looks good. PLAN 1. EKG with pain still looks normal 2. Think just increasing fentynal will be helpful SUBJECTIVE DATA REVIEW OF SYSTEMS: Review of Systems HENT: Negative. Eyes: Negative. Respiratory: Positive for shortness of breath. Cardiovascular: Positive for chest pain and orthopnea. Gastrointestinal: Positive for heartburn and nausea. Genitourinary: Negative. Musculoskeletal: Negative. Skin: Negative. Neurological: Positive for weakness. Endo/Heme/Allergies: Negative. Psychiatric/Behavioral: Negative. OBJECTIVE DATA TELEMETRY: NSR MEDICATIONS: SCHEDULED: aspirin 162 mg Oral Daily atorvaSTATin 40 mg Oral Nightly famotidine 20 mg Intravenous BID famotidine 20 mg Oral BID insulin lispro 0-6 Units Subcutaneous 5x Daily AC, HS and 3AM insulin lispro 1-10 Units Subcutaneous TID WC levothyroxine 50 mcg Oral BID AC metoprolol tartrate 25 mg Oral BID IV: balanced electrolytes in water (PLASMALYTE-148/NORMOSOL-R) 30 mL/hr at 11/02/16 1100 clevidipine fentaNYL 60 mcg/hr (11/02/16 1100) nitroglycerin in dextrose 5 mcg/min (11/02/16 1100) phenylephrine Stopped (11/02/16 0500) PRN: acetaminophen, albumin, albuterol, bisacodyl, dextrose, Hypoglycemia Management AND POC T Glucose AND dextrose, docusate sodium, HYDROcodone-acetaminophen, [START ON 11/03/2016] magnesium hydroxide, menthol, menthol throat lozenges, morphine, ondansetron, ondansetron, polyethylene glycol, Potassium replacement - ICU AND potassium chloride, senna, sodium b icarbonate IMAGING: Xr Chest Pa Or Ap Result Date: 11/01/2016 FLUOROSCOPIC ASSISTED CENTRAL LINE CLINICAL INFORMATION: Intraoperative fluoroscopic yaakov martinez central line placement. FINDINGS: 1 minute 37 seconds of fluoroscopy was utilized by Dr Tatyana Loo during operative procedure. Single image showing left jugular venous access an d [place] catheter and to the area of segmental right lower lobe arteries. Total number o f images: 1. IMPRESSION: Fluoroscopic assisted right jugular venous access with [place] c atheter. Signed by: Fredy Miranda Xr Chest Pa And Lateral Result Date: 10/31/2016 CHEST TWO VIEWS CLINICAL INFORMATION: Preoperative for a coronary artery bypass graft to b e done on 11/01/16. COMPARISON: No comparisons FINDINGS: Heart, lungs and vessels normal. No pneumothorax, pleural effusion or adenopathy. No significant bone abnormality. IMPRESSIO N: Negative chest. Signed by: Tino Sommers Xr Chest Ap Portable Result Date: 11/02/2016 CHEST PORTABLE ONE VIEW CLINICAL INFORMATION: Post open heart surgery. Now having chest di scomfort. COMPARISON: X-ray yesterday. FINDINGS/IMPRESSION: 1. ET tube and NG tube have be en removed. The remaining lines and support devices are unchanged in position. 2. Low lung volumes. There are increased hazy reticular opacities in the perihilar regions and lung bas es, which may reflect atelectasis or interstitial edema. Prominent gastric air bubble. 3. C ardiomediastinal contours are stable. 4. No visible pneumothorax. Signed by: Flora Larsen Xr Chest Ap Portable Result Date: 11/01/2016 CHEST SINGLE VIEW CLINICAL INFORMATION: Post open heart. COMPARISON: Two view chest dated 10/31/2016. FINDINGS: Interval postoperative changes of median sternotomy and CABG. Mild b ibasilar densities, likely atelectasis. No pneumothorax. Cardiac silhouette is unchanged. Lines and support devices as follows: Endotracheal tube tip is 4.2 cm above the lara. Lef t IJ central venous catheter tip projects over the left superior mediastinum. Distal enteric tube tip is within the stomach. Mediastinal and left pleural drains are in place. IMPRESSI ON: 1. Expected postoperative changes status post median sternotomy and CABG. 2. Left IJ hraitha tral venous catheter tip projects over the left superior mediastinum and may be within a dup licated SVC, left-sided SVC, left brachiocephalic vein or other vessel. Signed by: Jose Rockwell LABS Recent Labs 11/02/16 0211 11/01/16 1437 11/01/16 1425 11/01/16 1347 11/01/16 1231 10/31/16 1609 WBC 19.6* 22.8* -- -- -- -- 11.4* HGB 9.9* 11.7 -- -- -- -- 14.7 HCT 29.5* 33.7* -- -- -- -- 43.1 PLT 244 239 -- -- -- -- 380 NA 142 -- -- 139 137 < > 133* K 4.0 4.2 4.3 4.1 4.5 < > 3.9 CL 107 -- -- -- -- -- 96* CO2 27 -- -- -- -- -- 29* BUN 17 -- -- -- -- -- 14 CREA 0.75 -- -- -- -- -- 0.77 GLU 131* -- 142* -- -- -- 93 CALCIUM 8.5 -- -- -- -- -- 9.9 INR -- -- -- -- -- -- 1.0 < > = values in this interval not displayed. Lab Results Component Value Date CHOL 218 (H) 09/26/2015 LDL 127 09/26/2015 HDL 71 09/26/2015 TRIG 98 09/26/2015 VITAL SIGNS: Vitals Current Average / Min / Max Temp 37 C (98.6 F) Temp Min: 36.2 C (97.2 F) Max: 37.9 C (100.2 F) BP 116/57 BP Min: 90/65 Max: 138/71 HR 73 Pulse Av Min: 46 Max: 96 RR 14 Resp Av.9 Min: 8 Max: 24 Sats 95 % SpO2 Min: 91 % Max: 100 % Weight 81.1 kg (178 lb 12.7 oz) Admit: 78 kg (172 lb) INTAKE/OUTPUT Date 11/01/16700 - 11/02/1669911/02/16700 - 11/03/16 07 Shift 24 Hour Total 24 Hour Total I N T A K E P.O. 100 100 Water PO (mL) 100 100 I.V. (mL/kg/hr) 1507 (1.6) 580.5 (0.6) 2087.5 (1.1) I.V. 250 278 528 Volume (ml) Insulin 18.5 18.5 Volume (ml) Propofol 57 57 Volume (ml) Fentanyl 131 131 Volume (ml) Phenylephrine 153 153 Volume (mL) (balanced electrolytes in water (PLASMALYTE-148/NORMOSOL-R) infusion) 1000 1000 Volume (mL) (lactated ringers (LR) infusion) 200 200 IV Piggyback 250 250 500 Volume (mL) (albumin 5% IVPB 12.5 g) 250 250 500 Shift Total (mL/kg) 1757 (22.1) 930.5 (11.5) 2687.5 (33.1) O U T P U T Urine (mL/kg/hr) 1210 (1.3) 395 (0.4) 1605 (0.8) 60 60 Chest Tube 175 110 285 40 40 Shift Total (mL/kg) 1385 (17.4) 505 (6.2) 1890 (23.3) 100 (1.2) 100 (1.2) NET 372 425.5 797.5 -100 -100 Weight (kg) 79.4 81.1 81.1 81.1 81.1 81.1 PHYSICAL EXAM Admit Weight: Weight: 78 kg (172 lb) Current weight: Weight: 81.1 kg (178 lb 12.7 oz) Body mass index is 30.69 kg/m. Physical Exam Constitutional: She is oriented to person, place, and time. Vital signs are normal. She [place] ears well-developed and well-nourished. Typical post op, chest wound. Not much swelling in the leg HENT: Head: Atraumatic. Eyes: EOM and lids are normal. Neck: Trachea normal and normal range of motion. Cardiovascular: Normal rate, regular rhythm and normal heart sounds. Pulmonary/Chest: Effort normal and breath sounds normal. Abdominal: Soft. Normal appearance and normal aorta. Musculoskeletal: Normal range of motion. Neurological: She is alert and oriented to person, place, and time. Skin: Skin is warm, dry and intact. Psychiatric: She has a normal mood and affect. Her behavior is normal. Thought content norm al. Nursing note and vitals reviewed. Suhail Flannery MD [facility] 11/02/2016 11:21 eeves, Mando willis MD - 11/02/2016 7:46 AM PDT [facility] Pt. Name/Age/: Jaclyn Jackson 81 y.o. 1935 [facility]. Record Number: [id number] Date of admission: 11/01/2016 POD 1 Procedure: Coronary artery bypass grafting x3 (VERDUZCO-LAD, rSVG-Diag, rSVG-RCA) Date of Procedure: 11/01/2016 Surgeon: Dr. Christina Loo MD. Anusha Flores PA-C assisting Background History: 81 y.o. female with severe, three-vessel coronary artery disease admitted electively for above surgery Cross-clamp time of 53 minutes; pump time of 79 minutes Normal EF. Pericardium closed Uncomplicated extubation on POD 0 DC chest tubes postoperative day 1 Subjective: Rough night. Considerable pain, nausea with episodes of emesis. Chest x-ray s howed a large gastric bubble early this morning. She has had quite a bit of belching this m orning, abdominal distention has improved Objective: Temp: 37.9 C (100.2 F) BP: 115/63 Pulse: 69 Resp: 13 SpO2: 97 % on Min/Max Temp past 24 hours:Temp Av.3 C (99.1 F) Min: 36.2 C (97.2 F) Max: 3 7.9 C (100.2 F) Intake/Output Summary (Last 24 hours) at 11/02/16745 Last data filed at 11/02/16599 Gross per 24 hour Intake 2687.5 ml Output 1890 ml Net 797.5 ml Wt. Admission: Weight: 78 kg (172 lb) Wt. Current: Weight: 81.1 kg (178 lb 12.7 oz) aspirin 162 mg Oral Daily atorvaSTATin 40 mg Oral Nightly famotidine 20 mg Intravenous BID famotidine 20 mg Oral BID insulin glargine 12 Units Subcutaneous Once insulin lispro 1-10 Units Subcutaneous TID WC levothyroxine 50 mcg Oral BID AC metoprolol tartrate 25 mg Oral BID balanced electrolytes in water (PLASMALYTE-148/NORMOSOL-R) 15 mL/hr at 11/02/16 0700 clevidipine fentaNYL 115 mcg/hr (11/02/16 0736) insulin regular 1.5 Units/hr (11/02/16 06) nitroglycerin in dextrose 5 mcg/min (11/02/16 0700) phenylephrine Stopped (11/02/16 0500) Neuro: negative Heart: RRR, sinus Respiratory: clear anteriorly Sternum: Stable Abdomen: soft and nontender Extremities: peripheral pulses normal, mild pedal edema, no clubbing or cyanosis. Extensiv e varicosities. Moderate bruising to left inner thigh to knee from vein harvest Wounds: well approximated incision:chest and left leg CT output: 110 overnight Air Leak: negative Nutrition therapy: no PT/OT: yes Swallow evaluation: no DVT: asa Imaging:: CHEST PORTABLE ONE VIEW CLINICAL INFORMATION: Post open heart surgery. Now having chest discomfort. COMPARISON: X-ray yesterday. FINDINGS/IMPRESSION: 1. ET tube and NG tube have been removed. The remaining lines and support devices are unchanged in position. 2. Low lung volumes. There are increased hazy reticular opacities in the perihilar regions and lung bases, which may reflect atelectasis or interstitial edema. Prominent gastric air bubble. 3. Cardiomediastinal contours are stable. 4. No visible pneumothorax. Labs Recent Labs 11/02/16 0211 11/01/16 1437 11/01/16 1425 11/01/16 1347 11/01/16 1231 10/31/16 1609 WBC 19.6* 22.8* -- -- -- -- 11.4* HGB 9.9* 11.7 -- -- -- -- 14.7 HCT 29.5* 33.7* -- -- -- -- 43.1 PLT 244 239 -- -- -- -- 380 NA 142 -- -- 139 137 < > 133* K 4.0 4.2 4.3 4.1 4.5 < > 3.9 CL 107 -- -- -- -- -- 96* CO2 27 -- -- -- -- -- 29* BUN 17 -- -- -- -- -- 14 CREA 0.75 -- -- -- -- -- 0.77 GLU 131* -- 142* -- -- -- 93 CALCIUM 8.5 -- -- -- -- -- 9.9 INR -- -- -- -- -- -- 1.0 < > = values in this interval not displayed. Lab Results Component Value Date CHOL 218 (H) 09/26/2015 CHOL 179 10/22/2013 CHOL 200 02/19/2011 HDL 71 09/26/2015 HDL 62 10/22/2013 HDL 54 02/19/2011 TRIG 98 09/26/2015 TRIG 80 10/22/2013 TRIG 90 02/19/2011 Diagnostic studies: Available data and images were reviewed personally. See reports. Signi ficant results and findings are addressed here or in the Assessment and Plan. Assessment and Plan: Severe three-vessel coronary artery disease -Postop day [address] Simon -Extubated early postop, breathing stable -Continue aspirin, statin and twice daily metoprolol -Blood pressure is currently stable, a little high -Good urine output with normal renal function. She may need diuresis tomorrow, she is a bi t volume long. Albumin infused overnight for low blood pressure. -Continue maintenance IV fluids until intake is improved Hypertension -Toprol-XL 50 mg daily, Norvasc 10 mg daily Pre-Op Hypothyroidism -Levothyroxine 50 g daily Chronic pain -Takes Elma 7.5 and Voltaren ointment at home History of TIA -no neuro deficits upon admission -Neurologically intact postop History of asthma -uses albuterol at home Chest x-ray does not display a large fluid collection, and chest tube output is minimal. W e'll discontinue chest tubes. Expect that this will improve her chest pain. Monitor in the ICU this morning, she will likely be ready to transfer to the telemetry unit this afternoon. Will DC central lines and Blackburn catheter at that time if she is hemodynami roya stable. Electronically signed by: Amna Benavides PA-C Physician Customer Solutions Supervisor [facility] Cardiothoracic Surgery 11/02/2016 7:46 [facility] Addendum: Doing well though difficult night Agree with above Ready for transfer Mando aClles MD Lindsey Gonsalves RN - 11/02/2016 6:00 AM PDTUO dropped to 5/hr this hr. CVP 7-10. Albumin 250cc given.Mariza le signed by Lindsey Haert RN at 11/02/2016 6:43 AM Lindsey Gonsalves RN - 11/02/2016 2:39 AM PDTPt stating relief from pain but request she be allowed to remain on her back and not turn at this time since she finally is getting some comfort. CXR results show some basilar opacities and prominent gastric bubble. Lindsey Gonsalves RN - 1:42 AM PDTPt states pain relieved some now (after fent to 100mcg/hr). Waiting for stat read on cxr. Elia Gonsalves RN - 11/02/2016 12:23 AM PDTHypotensive with dangle to edge of bed sbp 122->70's. Re turned to bed quickly, bp dalton slowly without changing tae rate (15mcg/min). Griselda Sanchez LICSW - 11/01/2016 6:00 PM PDT Supply Chain Intern: Pt resides in [place], [place]. She has Medicare coverage. Will follow progress post op and any other therapy recommendations for discharge planning. Semja Keith - 11/01/2016 2:22 PM PDTPatie nt arrived to room 260, vitals stable. Sedated. Reported received. Amna Garcia PA-C - 11/01/2016 1:26 PM PDT [facility] Immediate Post-Operative Note Subjective Pt. Name/Age/: Jaclyn Jackson 81 y.o. 1935 [facility]. Record Number: [id number] Date of admission: 11/01/2016 Procedure: Coronary artery bypass grafting x3 (VERDUZCO-LAD, rSVG-Diag, rSVG-RCA) Date of Procedure: 11/01/2016 Surgeon: Dr. Christina Loo MD. Anusha Flores PA-C assisting Background History: 81 y.o. female with severe, three-vessel coronary artery disease admitted electively for above surgery Cross-clamp time of 53 minutes; pump time of 79 minutes Normal EF. Pericardium closed OBJECTIVE Intubated and sedated Vitals: Temp: 35.7 C (96.2 F) BP: 137/69 (Right arm 156/57) Pulse: 55 Resp: 16 SpO2: 99 % on me chanical ventilation Cardiac Rhythm: normal sinus Lab Results Component Value Date PHART 7.47 11/01/2016 LIG5LZE 36 11/01/2016 PO2ART 290 11/01/2016 U7VPPLBRY 13.9 (L) 11/01/2016 JDB1LOU 26.0 11/01/2016 BEART 2.6 (H) 11/01/2016 HGB 14.7 10/31/2016 CARBOXYHGB 1.3 11/01/2016 METHHGB 1.0 11/01/2016 balanced electrolytes in water (PLASMALYTE-148/NORMOSOL-R) 25 mL (11/01/16 0647) insulin regular ASSESSMENT AND PLAN Severe, multivessel coronary artery disease S/P coronary artery bypass grafting x3 --Proceed with sedation wean, extubation, and CICU care per protocol --No obvious complications post-op --clevidipine for elevated BP, Nitro for AHMET graft Hypertension -Toprol-XL 50 mg daily, Norvasc 10 mg daily Pre-Op Hypothyroidism -Levothyroxine 50 g daily Chronic pain -Takes Elma 7.5 and Voltaren ointment at home History of TIA -no neuro deficits upon admission History of asthma -uses albuterol at home Electronically signed by: Amna Benavides PA-C 11/01/2016 13:26 Cardiothoracic Surgery [facility] [address] [place], [place] [id number] Portions of this chart may have been created with [employer] voice recognition software. Occasi onal wrong-word or sound-alike substitutions may have occurred due to the inherent doe itations of voice recognition software. Please read the chart carefully and recognize, using context, where these substitutions have occurred. documented in this encounter Plan of Treatment +--------+---------+ + + + | Date | Type | Specialty | Care Team | Description | +--------+---------+ + + + | 06/02/ | Office | Orthopedic Surgery | Ulysses Jensen, | | | 2019 | Visit | | MD Danny FLANNERY | | | | | | [place] [address] | | | | | | [id number] | | | | | | | | +--------+---------+ + + + | 11/21/ | Office | Cardiology | Yesi, | | | 2019 | Visit | | JOSE ALBERTO Linder [address] | | | | | | [address] | | | | | | [place] [address] | | | | | | [phone] | | | | | | | | +--------+---------+ + + + + +------+--------+ + + | Name | Type | Priori | Associated Diagnoses | Order Schedule | | | | ty | | | + +------+--------+ + + | DME: Walker | DME | Routin | Coronary artery | DME 1 Time for 1 | | | | e | disease involving | Occurrences starting | | | | | stebbins coronary | 11/04/2016 until | | | | | artery of stebbins | 11/04/2016 | | | | | heart with unstable | | | | | | angina pectoris | | | | | | (HCC) | | + +------+--------+ + + + + +--------+ + + | Name | Type | Priori | Associated Diagnoses | Order Schedule | | | | ty | | | + + +--------+ + + | Ambulatory Referral | Outpatient | Routin | Coronary artery | Ordered: 11/06/2016 | | to Cardiac Rehab | Referral | e | disease involving | | | | | | stebbins coronary | | | | | | artery of stebbins | | | | | | heart with unstable | | | | | | angina pectoris | | | | | | (HCC) | | + + +--------+ + + documented as of this encounter Procedures + +--------+ + + + | Procedure Name | Priori | Date/Time | Associated Diagnosis | Comments | | | ty | | | | + +--------+ + + + | BASIC METABOLIC | Routin | 11/06/2016 | | Results for this | | PANEL | e | 2:59 AM | | procedure are in the | | | | PDT | | results section. | + +--------+ + + + | IRON AND IRON | Routin | 11/05/2016 | | Results for this | | BINDING CAPACITY | e | 5:48 PM | | procedure are in the | | | | PDT | | results section. | + +--------+ + + + | IRON, TOTAL | Routin | 11/05/2016 | | Results for this | | | e | 5:48 PM | | procedure are in the | | | | PDT | | results section. | + +--------+ + + + | FERRITIN | Routin | 11/05/2016 | | Results for this | | | e | 5:48 PM | | procedure are in the | | | | PDT | | results section. | + +--------+ + + + | CBC WITH | Routin | 11/04/2016 | | Results for this | | DIFFERENTIAL | e | 4:18 AM | | procedure are in the | | | | PDT | | results section. | + +--------+ + + + | BASIC METABOLIC | Routin | 11/04/2016 | | Results for this | | PANEL | e | 4:18 AM | | procedure are in the | | | | PDT | | results section. | + +--------+ + + + | POC GLUCOSE | Routin | 11/03/2016 | | Results for this | | | e | 11:24 AM | | procedure are in the | | | | PDT | | results section. | + +--------+ + + + | POC GLUCOSE | Routin | 11/03/2016 | | Results for this | | | e | 6:42 AM | | procedure are in the | | | | PDT | | results section. | + +--------+ + + + | POC GLUCOSE | Routin | 11/03/2016 | | Results for this | | | e | 4:10 AM | | procedure are in the | | | | PDT | | results section. | + +--------+ + + + | POC GLUCOSE | Routin | 11/02/2016 | | Results for this | | | e | 8:46 PM | | procedure are in the | | | | PDT | | results section. | + +--------+ + + + | POC GLUCOSE | Routin | 11/02/2016 | | Results for this | | | e | 4:15 PM | | procedure are in the | | | | PDT | | results section. | + +--------+ + + + | ECG 12 LEAD | Routin | 11/02/2016 | | Results for this | | | e | 11:37 AM | | procedure are in the | | | | PDT | | results section. | + +--------+ + + + | POC GLUCOSE | Routin | 11/02/2016 | | Results for this | | | e | 11:24 AM | | procedure are in the | | | | PDT | | results section. | + +--------+ + + + | POC GLUCOSE | Routin | 11/02/2016 | | Results for this | | | e | 10:07 AM | | procedure are in the | | | | PDT | | results section. | + +--------+ + + + | POC GLUCOSE | Routin | 11/02/2016 | | Results for this | | | e | 9:06 AM | | procedure are in the | | | | PDT | | results section. | + +--------+ + + + | POC GLUCOSE | Routin | 11/02/2016 | | Results for this | | | e | 8:22 AM | | procedure are in the | | | | PDT | | results section. | + +--------+ + + + | POC GLUCOSE | Routin | 11/02/2016 | | Results for this | | | e | 7:06 AM | | procedure are in the | | | | PDT | | results section. | + +--------+ + + + | POC GLUCOSE | Routin | 11/02/2016 | | Results for this | | | e | 6:22 AM | | procedure are in the | | | | PDT | | results section. | + +--------+ + + + | POC GLUCOSE | Routin | 11/02/2016 | | Results for this | | | e | 5:29 AM | | procedure are in the | | | | PDT | | results section. | + +--------+ + + + | POC GLUCOSE | Routin | 11/02/2016 | | Results for this | | | e | 4:03 AM | | procedure are in the | | | | PDT | | results section. | + +--------+ + + + | POC GLUCOSE | Routin | 11/02/2016 | | Results for this | | | e | 3:10 AM | | procedure are in the | | | | PDT | | results section. | + +--------+ + + + | CBC NO DIFFERENTIAL | Routin | 11/02/2016 | | Results for this | | | e | 2:11 AM | | procedure are in the | | | | PDT | | results section. | + +--------+ + + + | BASIC METABOLIC | Routin | 11/02/2016 | | Results for this | | PANEL | e | 2:11 AM | | procedure are in the | | | | PDT | | results section. | + +--------+ + + + | POC GLUCOSE | Routin | 11/02/2016 | | Results for this | | | e | 2:05 AM | | procedure are in the | | | | PDT | | results section. | + +--------+ + + + | XR CHEST AP PORTABLE | Routin | 11/02/2016 | | Results for this | | | e | 1:17 AM | | procedure are in the | | | | PDT | | results section. | + +--------+ + + + | POC GLUCOSE | Routin | 11/02/2016 | | Results for this | | | e | 1:05 AM | | procedure are in the | | | | PDT | | results section. | + +--------+ + + + | POC GLUCOSE | Routin | 11/02/2016 | | Results for this | | | e | 12:07 AM | | procedure are in the | | | | PDT | | results section. | + +--------+ + + + | POC GLUCOSE | Routin | 11/01/2016 | | Results for this | | | e | 10:41 PM | | procedure are in the | | | | PDT | | results section. | + +--------+ + + + | POC GLUCOSE | Routin | 11/01/2016 | | Results for this | | | e | 10:02 PM | | procedure are in the | | | | PDT | | results section. | + +--------+ + + + | POC GLUCOSE | Routin | 11/01/2016 | | Results for this | | | e | 9:12 PM | | procedure are in the | | | | PDT | | results section. | + +--------+ + + + | POC GLUCOSE | Routin | 11/01/2016 | | Results for this | | | e | 7:05 PM | | procedure are in the | | | | PDT | | results section. | + +--------+ + + + | BLOOD GAS, ARTERIAL | STAT | 11/01/2016 | | Results for this | | | | 6:25 PM | | procedure are in the | | | | PDT | | results section. | + +--------+ + + + | POC GLUCOSE | Routin | 11/01/2016 | | Results for this | | | e | 5:57 PM | | procedure are in the | | | | PDT | | results section. | + +--------+ + + + | BLOOD GAS, ARTERIAL | STAT | 11/01/2016 | | Results for this | | | | 5:47 PM | | procedure are in the | | | | PDT | | results section. | + +--------+ + + + | POC GLUCOSE | Routin | 11/01/2016 | | Results for this | | | e | 4:25 PM | | procedure are in the | | | | PDT | | results section. | + +--------+ + + + | BLOOD GAS, ARTERIAL | STAT | 11/01/2016 | | Results for this | | | | 4:24 PM | | procedure are in the | | | | PDT | | results section. | + +--------+ + + + | ECHO TRANSESOPHAGEAL | Routin | 11/01/2016 | | Results for this | | (ORA) | e | 2:56 PM | | procedure are in the | | | | PDT | | results section. | + +--------+ + + + | CBC NO DIFFERENTIAL | STAT | 11/01/2016 | | Results for this | | | | 2:37 PM | | procedure are in the | | | | PDT | | results section. | + +--------+ + + + | POTASSIUM | STAT | 11/01/2016 | | Results for this | | | | 2:37 PM | | procedure are in the | | | | PDT | | results section. | + +--------+ + + + | LACTIC ACID, | STAT | 11/01/2016 | | Results for this | | ARTERIAL, | | 2:25 PM | | procedure are in the | | RESPIRATORY | | PDT | | results section. | + +--------+ + + + | GLUCOSE, RESPIRATORY | STAT | 11/01/2016 | | Results for this | | | | 2:25 PM | | procedure are in the | | | | PDT | | results section. | + +--------+ + + + | CALCIUM, IONIZED, | STAT | 11/01/2016 | | Results for this | | RESPIRATORY | | 2:25 PM | | procedure are in the | | | | PDT | | results section. | + +--------+ + + + | BLOOD GAS, ARTERIAL | STAT | 11/01/2016 | | Results for this | | | | 2:25 PM | | procedure are in the | | | | PDT | | results section. | + +--------+ + + + | POTASSIUM, WHOLE | STAT | 11/01/2016 | | Results for this | | BLOOD | | 2:25 PM | | procedure are in the | | | | PDT | | results section. | + +--------+ + + + | ECG 12 LEAD | STAT | 11/01/2016 | | Results for this | | | | 2:21 PM | | procedure are in the | | | | PDT | | results section. | + +--------+ + + + | RT CARDIOTHORACIC | Routin | 11/01/2016 | | | | VENT WEANING | e | 2:14 PM | | | | PROTOCOL | | PDT | | | + +--------+ + + + | XR CHEST AP PORTABLE | Routin | 11/01/2016 | | Results for this | | | e | 2:00 PM | | procedure are in the | | | | PDT | | results section. | + +--------+ + + + | LACTIC ACID, | Routin | 11/01/2016 | | Results for this | | ARTERIAL, SURGERY | e | 1:47 PM | | procedure are in the | | | | PDT | | results section. | + +--------+ + + + | BLOOD GAS , | Routin | 11/01/2016 | | Results for this | | ARTERIAL, SURGERY | e | 1:47 PM | | procedure are in the | | | | PDT | | results section. | + +--------+ + + + | LACTIC ACID, | Routin | 11/01/2016 | | Results for this | | ARTERIAL, SURGERY | e | 12:31 PM | | procedure are in the | | | | PDT | | results section. | + +--------+ + + + | BLOOD GAS , | Routin | 11/01/2016 | | Results for this | | ARTERIAL, SURGERY | e | 12:31 PM | | procedure are in the | | | | PDT | | results section. | + +--------+ + + + | LACTIC ACID, | Routin | 11/01/2016 | | Results for this | | ARTERIAL, SURGERY | e | 11:50 AM | | procedure are in the | | | | PDT | | results section. | + +--------+ + + + | CALCIUM, IONIZED, | Routin | 11/01/2016 | | Results for this | | SURGERY | e | 11:50 AM | | procedure are in the | | | | PDT | | results section. | + +--------+ + + + | BLOOD GAS PROFILE, | Routin | 11/01/2016 | | Results for this | | ABG, POTASSIUM AND | e | 11:50 AM | | procedure are in the | | GLUCOSE, SURGERY | | PDT | | results section. | + +--------+ + + + | LACTIC ACID, | Routin | 11/01/2016 | | Results for this | | ARTERIAL, SURGERY | e | 11:31 AM | | procedure are in the | | | | PDT | | results section. | + +--------+ + + + | CALCIUM, IONIZED, | Routin | 11/01/2016 | | Results for this | | SURGERY | e | 11:31 AM | | procedure are in the | | | | PDT | | results section. | + +--------+ + + + | BLOOD GAS PROFILE, | Routin | 11/01/2016 | | Results for this | | ABG, POTASSIUM AND | e | 11:31 AM | | procedure are in the | | GLUCOSE, SURGERY | | PDT | | results section. | + +--------+ + + + | LACTIC ACID, | Routin | 11/01/2016 | | Results for this | | ARTERIAL, SURGERY | e | 10:51 AM | | procedure are in the | | | | PDT | | results section. | + +--------+ + + + | CALCIUM, IONIZED, | Routin | 11/01/2016 | | Results for this | | SURGERY | e | 10:51 AM | | procedure are in the | | | | PDT | | results section. | + +--------+ + + + | BLOOD GAS PROFILE | Routin | 11/01/2016 | | Results for this | | ABG, VBG, POTASSIUM | e | 10:51 AM | | procedure are in the | | AND GLUCOSE, SURGERY | | PDT | | results section. | + +--------+ + + + | XR CHEST PA OR AP | Routin | 11/01/2016 | | Results for this | | | e | 8:42 AM | | procedure are in the | | | | PDT | | results section. | + +--------+ + + + | LACTIC ACID, | Routin | 11/01/2016 | | Results for this | | ARTERIAL, SURGERY | e | 7:52 AM | | procedure are in the | | | | PDT | | results section. | + +--------+ + + + | BLOOD GAS , | Routin | 11/01/2016 | | Results for this | | ARTERIAL, SURGERY | e | 7:52 AM | | procedure are in the | | | | PDT | | results section. | + +--------+ + + + | CORONARY ARTERY | | 11/01/2016 | Coronary | | | BYPASS GRAFT | | 7:29 AM | atherosclerosis of | | | | | PDT | unspecified type of | | | | | | vessel, stebbins or | | | | | | graft | | + +--------+ + + + +---+--------+ | | | | | Specia | | | l | | | Needs | | | ORA | +---+--------+ + +--------+ + + + | POC GLUCOSE | Routin | 11/01/2016 | | Results for this | | | e | 6:30 AM | | procedure are in the | | | | PDT | | results section. | + +--------+ + + + | LVEF VALUE | Routin | 11/01/2016 | | Results for this | | | e | | | procedure are in the | | | | | | results section. | + +--------+ + + + | XR CHEST PA AND | Routin | 10/31/2016 | | Results for this | | LATERAL | e | 4:39 PM | | procedure are in the | | | | PDT | | results section. | + +--------+ + + + | URINALYSIS WITH | Routin | 10/31/2016 | Coronary artery | Results for this | | MICROSCOPIC WITH | e | 4:17 PM | disease, angina | procedure are in the | | CULTURE IF INDICATED | | PDT | presence | results section. | | | | | unspecified, | | | | | | unspecified vessel | | | | | | or lesion type, | | | | | | unspecified whether | | | | | | stebbins or | | | | | | transplanted heart | | | | | | Valvular heart | | | | | | disease | | + +--------+ + + + | TYPE AND SCREEN | Routin | 10/31/2016 | | Results for this | | | e | 4:09 PM | | procedure are in the | | | | PDT | | results section. | + +--------+ + + + | PTT | Routin | 10/31/2016 | Coronary artery | Results for this | | | e | 4:09 PM | disease, angina | procedure are in the | | | | PDT | presence | results section. | | | | | unspecified, | | | | | | unspecified vessel | | | | | | or lesion type, | | | | | | unspecified whether | | | | | | stebbins or | | | | | | transplanted heart | | | | | | Valvular heart | | | | | | disease | | + +--------+ + + + | PROTIME INR | Routin | 10/31/2016 | Coronary artery | Results for this | | | e | 4:09 PM | disease, angina | procedure are in the | | | | PDT | presence | results section. | | | | | unspecified, | | | | | | unspecified vessel | | | | | | or lesion type, | | | | | | unspecified whether | | | | | | stebbins or | | | | | | transplanted heart | | | | | | Valvular heart | | | | | | disease | | + +--------+ + + + | CBC WITH | Routin | 10/31/2016 | Coronary artery | Results for this | | DIFFERENTIAL | e | 4:09 PM | disease, angina | procedure are in the | | | | PDT | presence | results section. | | | | | unspecified, | | | | | | unspecified vessel | | | | | | or lesion type, | | | | | | unspecified whether | | | | | | stebbins or | | | | | | transplanted heart | | | | | | Valvular heart | | | | | | disease | | + +--------+ + + + | HEMOGLOBIN A1C | Routin | 10/31/2016 | Coronary artery | Results for this | | | e | 4:09 PM | disease, angina | procedure are in the | | | | PDT | presence | results section. | | | | | unspecified, | | | | | | unspecified vessel | | | | | | or lesion type, | | | | | | unspecified whether | | | | | | stebbins or | | | | | | transplanted heart | | | | | | Valvular heart | | | | | | disease | | + +--------+ + + + | BASIC METABOLIC | Routin | 10/31/2016 | Coronary artery | Results for this | | PANEL | e | 4:09 PM | disease, angina | procedure are in the | | | | PDT | presence | results section. | | | | | unspecified, | | | | | | unspecified vessel | | | | | | or lesion type, | | | | | | unspecified whether | | | | | | stebbins or | | | | | | transplanted heart | | | | | | Valvular heart | | | | | | disease | | + +--------+ + + + | MRSA NAAT | Routin | 10/31/2016 | Coronary artery | Results for this | | | e | 3:20 PM | disease, angina | procedure are in the | | | | PDT | presence | results section. | | | | | unspecified, | | | | | | unspecified vessel | | | | | | or lesion type, | | | | | | unspecified whether | | | | | | stebbins or | | | | | | transplanted heart | | | | | | Valvular heart | | | | | | disease | | + +--------+ + + + documented in this encounter Results Basic Metabolic Panel (11/06/2016 2:59 AM PDT) + + + + + + | Component | Value | Ref Range | Performed | Pathologist | | | | | At | Signature | + + + + + + | Na | 136 | 135 - 145 | [facility] | | | | | mmol/L | [facility] | [facility] | [facility] | | | | | | [facility] | | | | | | [facility] | | | | | | LABORATORY | | + + + + + + | K | 4.0 | 3.5 - 5.0 | [facility] | | | | | mmol/L | [facility] | | | | | [facility] | | | | | | MED[facility] | | | | | | CENTER | | | | | | LABORATORY | | + + + + + + | Cl | 100 | 99 - 109 mmol/L | [facility] | | | | | [facility] | [facility] | [facility] | | | | | | [facility] | | | | | | [facility]ENTER | | | | | | LABORATORY | | + + + + + + | CO2 | 29 (H) | 21 - 28 mmol/L | [facility] | | | | [facility] | [facility] | | | | | | [facility] | | | | | | [facility] | | | | | | LABORATORY | | + + + + + + | Glucose | 114 (H)Comment: Wallisian | 65 - 99 mg/dL | [facility] | | | | Diabetes Association | | [facility] | | | | diagnostic categories | | HEART | | | | for non adults: | | MEDICAL | | | | Impaired fasting | | CENTER | | | | glucose 100 to 125 | | LABORATORY | | | | mg/dL. A fasting | | | | | | glucose result of 126 | | | | | | mg/dL or greater | | | | | | indicates diabetes if | | | | | | the abnormality is | | | | | | confirmed on a | | | | | | subsequent day. A | | | | | | random glucose result of | | | | | | greater than 200 mg/dL | | | | | | indicates diabetes if | | | | | | the abnormality is | | | | | | confirmed on a | | | | | | subsequent day. | | | | + + + + + + | BUN | 7 (L) | 8 - 25 mg/dL | [facility] | | | | [facility] | | [facility] | | [facility] | | | | | | [facility] | | | | | | [facility]ENTER | | | | | | LABORATORY | | + + + + + + | Creatinine | 0.44 (L)Comment: IDMS | 0.50 - 1.00 | [facility] | | | | traceable creatinine | mg/dL | [facility] | | | | | | [facility] | | | | | | MEDICAL | | | | | | CENTER | | | | | | LABORATORY | | + + + + + + | Calcium | 8.6 | 8.5 - 10.2 | [facility] | | | | | mg/dL | [facility] | | | | | | [facility] | | | | | | MEDICAL | | | | | | CENTER | | | | | | LABORATORY | | + + + + + + | Anion Gap | 7 | 5 - 16 mmol/L | [facility] | | | | | | [facility] | | | | | | [facility] | | | | | | [facility] | | | | | | CENTER | | | | | | LABORATORY | | + + + + + + | Estimated | >60Comment: GFR <60: | >60 | [facility] | | | GFR | Chronic kidney disease, | ml/min/1.73m2 | [facility] | | | | if found over a 3 month | | HEART | | | | period.GFR <15: Kidney | | MEDICAL | | | | failure.For | | CENTER | | | | Americans, multiply the | | LABORATORY | | | | calculated GFR by 1.210 | | | | + + + + + + + + | Specimen | + + | Blood | + + + + + + + | Performing | Address | City/State/Zipcode | Phone Number | | Organization | | | | + + + + + | [facility] | [address] | [place] [address] | | | [facility] | | | | | LABORATORY | | | | + + + + + Ferritin (11/05/2016 5:48 PM PDT) + +-------+ + + + | Component | Value | Ref Range | Performed | Pathologist | | | | | At | Signature | + +-------+ + + + | FERRITIN | 190 | 11 - 307 ng/mL | [facility] | | | | [facility] | | | | | [facility] | | | | | | MEDICAL | | | | | | CENTER | | | | | | LABORATORY | | + +-------+ + + + + + | Specimen | + + | Blood | + + + + + + + | Performing | Address | City/State/Zipcode | Phone Number | | Organization | | | | + + + + + | [facility] | [address] | [place], [place] [address] | | | [facility] | | | | | LABORATORY | | | | + + + + + Iron, Total (11/05/2016 5:48 PM PDT) + +--------+ + + + | Component | Value | Ref Range | Performed | Pathologist | | | | | At | Signature | + +--------+ + + + | Iron | 26 (L) | 30 - 180 ug/dL | [facility] | | | | [facility] | | | | | | MEDICAL | | | | | | CENTER | | | | | | LABORATORY | | + +--------+ + + + + + | Specimen | + + | Blood | + + + + + + + | Performing | Address | City/State/Zipcode | Phone Number | | Organization | | | | + + + + + | [facility] | [address] | [place] [address] | | | [facility] | | | | | LABORATORY | | | | + + + + + Iron and Iron Binding Capacity (11/05/2016 5:48 PM PDT) + +---------+ + + + | Component | Value | Ref Range | Performed | Pathologist | | | | | At | Signature | + +---------+ + + + | Iron | 22 (L) | 30 - 180 ug/dL | [facility] | | | | [facility] | | | | | [facility] | | | | | | MEDICAL | | | | | | CENTER | | | | | | LABORATORY | | + +---------+ + + + | TIBC | 258 (L) | 260 - 490 ug/dL | [facility] | | | | | [facility] | | | | | | HEART | | | | | | MEDICAL | | | | | | CENTER | | | | | | LABORATORY | | + +---------+ + + + | Iron | 9 (L) | 15 - 50 % | [facility] | | | Saturation | | | [facility] | | | | | | HEART | | | | | | MEDICAL | | | | | | CENTER | | | | | | LABORATORY | | + +---------+ + + + + + | Specimen | + + | Blood | + + + + + + + | Performing | Address | City/State/Zipcode | Phone Number | | Organization | | | | + + + + + | [facility] | [address] | [place] [address] | | | [facility] | | | | | LABORATORY | | | | + + + + + CBC with Differential (11/04/2016 4:18 AM PDT) + + + + + + | Component | Value | Ref Range | Performed | Pathologist | | | | | At | Signature | + + + + + + | WBC | 17.2 (H) | 3.8 - 11.0 K/uL | [facility] | | | | [facility] | | | | | | [facility] | | | | | | MEDICAL | | | | | | CENTER | | | | | | LABORATORY | | + + + + + + | RBC | 2.82 (L) | 3.70 - 5.10 | [facility] | | | | | M/uL | [facility] | | | | | | HE[facility] | | | | | | MEDICAL | | | | | | CENTER | | | | | | LABORATORY | | + + + + + + | Hemoglobin | 9.7 (L) | 11.3 - 15.5 | [facility] | | | | | g/dL | [facility] | | | | | | HE[facility] | | | | | | MEDICAL | | | | | | CENTER | | | | | | LABORATORY | | + + + + + + | Hematocrit | 29.0 (L) | 34.0 - 46.0 % | [facility] | | | | | | [facility] | | | | | | [facility] | | | | | | MEDICAL | | | | | | CENTER | | | | | | LABORATORY | | + + + + + + | MCV | 102.9 (H) | 80.0 - 100.0 fL | [facility] | | | | | | [facility] | | | | | | [facility] | | | | | | MEDICAL | | | | | | CENTER | | | | | | LABORATORY | | + + + + + + | MCH | 34.6 (H) | 27.0 - 34.0 pg | [facility] | | | | | | [facility] | | | | | | [facility] | | | | | | MEDICAL | | | | | | CENTER | | | | | | LABORATORY | | + + + + + + | MCHC | 33.6 | 32.0 - 35.5 | [facility] | | | | | g/dL | [facility] | | | | | | HE[facility] | | | | | | MEDICAL | | | | | | CENTER | | | | | | LABORATORY | | + + + + + + | RDW-CV | 12.8 | 11.0 - 15.5 % | [facility] | | | | | | [facility] | | | | | | [facility] | | | | | | MEDICAL | | | | | | CENTER | | | | | | LABORATORY | | + + + + + + | Platelet | 205 | 150 - 400 K/uL | [facility] | | | Count | | | [facility] | | | | | | HEART | | | | | | MEDICAL | | | | | | CENTER | | | | | | LABORATORY | | + + + + + + | Differentia | Automated | | [facility] | | | l Type | | | [facility] | | | | | | HEART | | | | | | MEDICAL | | | | | | CENTER | | | | | | LABORATORY | | + + + + + + | % | 75.1 (H) | 40.0 - 75.0 % | [facility] | | | Neutrophils | | | [facility] | | | | | | HEART | | | | | | MEDICAL | | | | | | CENTER | | | | | | LABORATORY | | + + + + + + | % | 15.2 | 15.0 - 48.0 % | [facility] | | | Lymphocytes | | | [facility] | | | | | | HEART | | | | | | MEDICAL | | | | | | CENTER | | | | | | LABORATORY | | + + + + + + | % Monocytes | 7.8 | 0.0 - 12.0 % | [facility] | | | | | | [facility] | | | | | | HE[facility] | | | | | | MEDICAL | | | | | | CENTER | | | | | | LABORATORY | | + + + + + + | % | 1.6 | 0.0 - 7.0 % | [facility] | | | Eosinophils | | | [facility] | | | | | | HEART | | | | | | MEDICAL | | | | | | CENTER | | | | | | LABORATORY | | + + + + + + | % Basophils | 0.3 | 0.0 - 2.0 % | [facility] | | | | | | [facility] | | | | | | HE[facility] | | | | | | MEDICAL | | | | | | CENTER | | | | | | LABORATORY | | + + + + + + | Absolute | 12.90 (H) | 1.90 - 7.40 | [facility] | | | Neutrophils | | K/uL | [facility] | | | | | | HEART | | | | | | MEDICAL | | | | | | CENTER | | | | | | LABORATORY | | + + + + + + | Absolute | 2.60 | 1.00 - 3.90 | [facility] | | | Lymphocytes | | K/uL | [facility] | | | | | | HEART | | | | | | MEDICAL | | | | | | CENTER | | | | | | LABORATORY | | + + + + + + | Absolute | 1.30 (H) | 0.00 - 0.80 | [facility] | | | Monocytes | | K/uL | [facility] | | | | | | HEART | | | | | | MEDICAL | | | | | | CENTER | | | | | | LABORATORY | | + + + + + + | Absolute | 0.30 | 0.00 - 0.50 | [facility] | | | Eosinophils | | K/uL | [facility] | | | | | | HEART | | | | | | MEDICAL | | | | | | CENTER | | | | | | LABORATORY | | + + + + + + | Absolute | 0.10 | 0.00 - 0.10 | [facility] | | | Basophils | | K/uL | [facility] | | | | | | HEART | | | | | | MEDICAL | | | | | | CENTER | | | | | | LABORATORY | | + + + + + + + + | Specimen | + + | Blood | + + + + + + + | Performing | Address | City/State/Zipcode | Phone Number | | Organization | | | | + + + + + | [facility] | [address] | [place] [address] | | | [facility] | | | | | LABORATORY | | | | + + + + + Basic Metabolic Panel (11/04/2016 4:18 AM PDT) + + + + + + | Component | Value | Ref Range | Performed | Pathologist | | | | | At | Signature | + + + + + + | Na | 135 | 135 - 145 | [facility] | | | | | mmol/L | [facility] | | | | | | HEART | | | | | | MEDICAL | | | | | | CENTER | | | | | | LABORATORY | | + + + + + + | K | 4.2 | 3.5 - 5.0 | [facility] | | | | | mmol/L | [facility] | | | | | | HEART | | | | | | MEDICAL | | | | | | CENTER | | | | | | LABORATORY | | + + + + + + | Cl | 99 | 99 - 109 mmol/L | [facility] | | | | | | [facility] | | | | | | HE[facility] | | | | | | MEDICAL | | | | | | CENTER | | | | | | LABORATORY | | + + + + + + | CO2 | 31 (H) | 21 - 28 mmol/L | [facility] | | | | | | [facility] | | | | | | [facility] | | | | | | MEDICAL | | | | | | CENTER | | | | | | LABORATORY | | + + + + + + | Glucose | 115 (H)Comment: Wallisian | 65 - 99 mg/dL | [place] | | | | Diabetes Association | | [facility] | | | | diagnostic categories | | HEART | | | | for non adults: | | MEDICAL | | | | Impaired fasting | | CENTER | | | | glucose 100 to 125 | | LABORATORY | | | | mg/dL. A fasting | | | | | | glucose result of 126 | | | | | | mg/dL or greater | | | | | | indicates diabetes if | | | | | | the abnormality is | | | | | | confirmed on a | | | | | | subsequent day. A | | | | | | random glucose result of | | | | | | greater than 200 mg/dL | | | | | | indicates diabetes if | | | | | | the abnormality is | | | | | | confirmed on a | | | | | | subsequent day. | | | | + + + + + + | BUN | 12 | 8 - 25 mg/dL | [facility] | | | | | | [facility] | | | | | | [facility] | | | | | | MEDICAL | | | | | | CENTER | | | | | | LABORATORY | | + + + + + + | Creatinine | 0.46 (L)Comment: IDMS | 0.50 - 1.00 | [facility] | | | | traceable creatinine | mg/dL | [facility] | | | | | | HEART | | | | | | MEDICAL | | | | | | CENTER | | | | | | LABORATORY | | + + + + + + | Calcium | 9.1 | 8.5 - 10.2 | [facility] | | | | | mg/dL | [facility] | | | | | | HEART | | | | | | MEDICAL | | | | | | CENTER | | | | | | LABORATORY | | + + + + + + | Anion Gap | 5 | 5 - 16 mmol/L | [facility] | | | | | | [facility] | | | | | | HE[facility] | | | | | | MEDICAL | | | | | | CENTER | | | | | | LABORATORY | | + + + + + + | Estimated | >60Comment: GFR <60: | >60 | [facility] | | | GFR | Chronic kidney disease, | ml/min/1.73m2 | [facility] | | | | if found over a 3 month | | HEART | | | | period.GFR <15: Kidney | | MEDICAL | | | | failure.For | | CENTER | | | | Americans, multiply the | | LABORATORY | | | | calculated GFR by 1.210 | | | | + + + + + + + + | Specimen | + + | Blood | + + + + + + + | Performing | Address | City/State/Zipcode | Phone Number | | Organization | | | | + + + + + | [facility] | [address] | [place] [address] | | | [facility] | | | | | LABORATORY | | | | + + + + + POC Glucose (11/03/2016 11:24 AM PDT) + +---------+ + + + | Component | Value | Ref Range | Performed | Pathologist | | | | | At | Signature | + +---------+ + + + | Glucose, | 131 (H) | 65 - 99 mg/dL | [facility] | | | POC | | | [facility] | | | | | | HEART | | | | | | MEDICAL | | | | | | CENTER | | | | | | LABORATORY | | + +---------+ + + + + + | Specimen | + + | | + + + + + + + | Performing | Address | City/State/Zipcode | Phone Number | | Organization | | | | + + + + + | [facility] | [address] | [place] [address] | | | [facility] | | | | | LABORATORY | | | | + + + + + POC Glucose (11/03/2016 6:42 AM PDT) + +---------+ + + + | Component | Value | Ref Range | Performed | Pathologist | | | | | At | Signature | + +---------+ + + + | Glucose, | 109 (H) | 65 - 99 mg/dL | [facility] | | | POC | | | [facility] | | | | | | HEART | | | | | | MEDICAL | | | | | | CENTER | | | | | | LABORATORY | | + +---------+ + + + + + | Specimen | + + | | + + + + + + + | Performing | Address | City/State/Zipcode | Phone Number | | Organization | | | | + + + + + | [facility] | [address] | [place] [address] | | | [facility] | | | | | LABORATORY | | | | + + + + + POC Glucose (11/03/2016 4:10 AM PDT) + +---------+ + + + | Component | Value | Ref Range | Performed | Pathologist | | | | | At | Signature | + +---------+ + + + | Glucose, | 117 (H) | 65 - 99 mg/dL | [facility] | | | POC | | | [facility] | | | | | | HE[facility] | | | | | | MEDICAL | | | | | | CENTER | | | | | | LABORATORY | | + +---------+ + + + + + | Specimen | + + | | + + + + + + + | Performing | Address | City/State/Zipcode | Phone Number | | Organization | | | | + + + + + | [facility] | [address] | [place] [address] | | | [facility] | | | | | LABORATORY | | | | + + + + + POC Glucose (11/02/2016 8:46 PM PDT) + +---------+ + + + | Component | Value | Ref Range | Performed | Pathologist | | | | | At | Signature | + +---------+ + + + | Glucose, | 101 (H) | 65 - 99 mg/dL | [facility] | | | POC | | | [facility] | | | | | | HE[facility] | | | | | | MEDICAL | | | | | | CENTER | | | | | | LABORATORY | | + +---------+ + + + + + | Specimen | + + | | + + + + + + + | Performing | Address | City/State/Zipcode | Phone Number | | Organization | | | | + + + + + | [facility] | [address] | [place] [address] | | | [facility] | | | | | LABORATORY | | | | + + + + + POC Glucose (11/02/2016 4:15 PM PDT) + +---------+ + + + | Component | Value | Ref Range | Performed | Pathologist | | | | | At | Signature | + +---------+ + + + | Glucose, | 133 (H) | 65 - 99 mg/dL | [facility] | | | POC | | | [facility] | | | | | | HE[facility] | | | | | | MEDICAL | | | | | | CENTER | | | | | | LABORATORY | | + +---------+ + + + + + | Specimen | + + | | + + + + + + + | Performing | Address | City/State/Zipcode | Phone Number | | Organization | | | | + + + + + | [facility] | [address] | [place] [address] | | | [facility] | | | | | LABORATORY | | | | + + + + + ECG 12 lead (11/02/2016 11:37 AM PDT) + + | Specimen | + + | | + + + + + | Narrative | Performed At | + + + | HEART RATE:74 | [facility] | | bpmRR Interval:811 msAtrial Rate:74 msP-R Interval:140 msP | [facility] | | Duration:140 msP Horizontal Mohawk:-43 degP Front [place]awk:60 degQ Onset:514 | | | msQRSD Interval:78 msQT Interval:384 msQTcB:426 msQTcF:412 msQRS | | | Horizontal [place]awk:3 degQRS Mohawk:21 degI-40 Horizontal [place]awk:-8 degI-40 | | | Front [place]:15 degT-40 Horizontal [place]:-6 degT-40 Front [place]:22 degT | | | Horizontal [place]:44 degT Wave [place]:12 degS-T Horizontal [place]awk:42 degS-T | | | Front [place]:22 degSeverity:- BORDERLINE ECG -INTERP:SINUS | | | RHYTHMINTERP:PROBABLE LEFT ATRIAL ABNORMALITYElectronically signed by: | | | PATRICK BURKETT 11-09-2016 13:17:14 | | |QTcB:426 ms | | |QTcF:412 ms | | |QRS Horizontal Mohawk:3 deg | | |QRS [place]awk:21 deg | | |I-40 Horizontal [place]awk:-8 deg | | |I-40 Front [place]:15 deg | | |T-40 Horizontal [place]:-6 deg | | |T-40 Front [place]:22 deg | | |T Horizontal [place]awk:44 deg | | |T Wave [place]:12 deg | | |S-T Horizontal [place]awk:42 deg | | |S-T Front [place]:22 deg | | |Severity:- BORDERLINE ECG - | | |INTERP:SINUS RHYTHM | | |INTERP:PROBABLE LEFT ATRIAL ABNORMALITY | | |Electronically signed by: PATRICK BURKETT 11-09-2016 13:17:14 | | + + + + + + + + | Performing | Address | City/State/Zipcode | Phone Number | | Organization | | | | + + + + + | [facility] | [address] | [place] [address] | [phone] | + + + + + POC Glucose (11/02/2016 11:24 AM PDT) + +-------+ + + + | Component | Value | Ref Range | Performed | Pathologist | | | | | At | Signature | + +-------+ + + + | Glucose, | 91 | 65 - 99 mg/dL | [facility] | | | P[facility] | | | [facility] | | | | | | [facility] | | | | | | MEDICAL | | | | | | CENTER | | | | | | LABORATORY | | + +-------+ + + + + + | Specimen | + + | | + + + + + + + | Performing | Address | City/State/Zipcode | Phone Number | | Organization | | | | + + + + + | [facility] | [address] | [place] [address] | | | [facility] | | | | | LABORATORY | | | | + + + + + POC Glucose (11/02/2016 10:07 AM PDT) + +-------+ + + + | Component | Value | Ref Range | Performed | Pathologist | | | | | At | Signature | + +-------+ + + + | Glucose, | 98 | 65 - 99 mg/dL | [facility] | | | POC | | | [facility] | | | | | | [facility]ART | | | | | | MEDICAL | | | | | | CENTER | | | | | | LABORATORY | | + +-------+ + + + + + | Specimen | + + | | + + + + + + + | Performing | Address | City/State/Zipcode | Phone Number | | Organization | | | | + + + + + | [facility] | [address] | [place] [address] | | | [facility] | | | | | LABORATORY | | | | + + + + + POC Glucose (11/02/2016 9:06 AM PDT) + +---------+ + + + | Component | Value | Ref Range | Performed | Pathologist | | | | | At | Signature | + +---------+ + + + | Glucose, | 100 (H) | 65 - 99 mg/dL | [facility] | | | POC | [facility] | | | [facility] | | | | | | [facility] | | | | | | LABORATORY | | + +---------+ + + + + + | Specimen | + + | | + + + + + + + | Performing | Address | City/State/Zipcode | Phone Number | | Organization | | | | + + + + + | [facility] | [address] | [place] [address] | | | [facility] | | | | | LABORATORY | | | | + + + + + POC Glucose (11/02/2016 8:22 AM PDT) + +---------+ + + + | Component | Value | Ref Range | Performed | Pathologist | | | | | At | Signature | + +---------+ + + + | Glucose, | 104 (H) | 65 - 99 mg/dL | [facility] | | | | [facility] | | | | | | [facility] | | | | | | LABORATORY | | + +---------+ + + + + + | Specimen | + + | | + + + + + + + | Performing | Address | City/State/Zipcode | Phone Number | | Organization | | | | + + + + + | [facility] | [address] | [place] [address] | | | [facility] | | | | | LABORATORY | | | | + + + + + POC Glucose (11/02/2016 7:06 AM PDT) + +---------+ + + + | Component | Value | Ref Range | Performed | Pathologist | | | | | At | Signature | + +---------+ + + + | Glucose, | 103 (H) | 65 - 99 mg/dL | [facility] | | | | | [facility] | | | | | | [facility]ENTER | | | | | | LABORATORY | | + +---------+ + + + + + | Specimen | + + | | + + + + + + + | Performing | Address | City/State/Zipcode | Phone Number | | Organization | | | | + + + + + | [facility] | [address] | [place] [address] | | | [facility] | | | | | LABORATORY | | | | + + + + + POC Glucose (11/02/2016 6:22 AM PDT) + +---------+ + + + | Component | Value | Ref Range | Performed | Pathologist | | | | | At | Signature | + +---------+ + + + | Glucose, | 107 (H) | 65 - 99 mg/dL | [facility] | | | | | [facility] | | | | | | [facility] | | | | | | LABORATORY | | + +---------+ + + + + + | Specimen | + + | | + + + + + + + | Performing | Address | City/State/Zipcode | Phone Number | | Organization | | | | + + + + + | [facility] | [address] | [place] [address] | | | [facility] | | | | | LABORATORY | | | | + + + + + POC Glucose (11/02/2016 5:29 AM PDT) + +---------+ + + + | Component | Value | Ref Range | Performed | Pathologist | | | | | At | Signature | + +---------+ + + + | Glucose, | 110 (H) | 65 - 99 mg/dL | [facility] | | | | | [facility] | | | | | | [facility]ENTER | | | | | | LABORATORY | | + +---------+ + + + + + | Specimen | + + | | + + + + + + + | Performing | Address | City/State/Zipcode | Phone Number | | Organization | | | | + + + + + | [facility] | [address] | [place] [address] | | | [facility] | | | | | LABORATORY | | | | + + + + + POC Glucose (11/02/2016 4:03 AM PDT) + +---------+ + + + | Component | Value | Ref Range | Performed | Pathologist | | | | | At | Signature | + +---------+ + + + | Glucose, | 100 (H) | 65 - 99 mg/dL | [facility] | | P[facility] | [facility] | | [facility] | | | | | | MEDICAL | | | | | | CENTER | | | | | | LABORATORY | | + +---------+ + + + + + | Specimen | + + | | + + + + + + + | Performing | Address | City/State/Zipcode | Phone Number | | Organization | | | | + + + + + | [facility] | [address] | [place] [address] | | | [facility] | | | | | LABORATORY | | | | + + + + + POC Glucose (11/02/2016 3:10 AM PDT) + +---------+ + + + | Component | Value | Ref Range | Performed | Pathologist | | | | | At | Signature | + +---------+ + + + | Glucose, | 110 (H) | 65 - 99 mg/dL | [facility] | | POC [facility] | | [facility] | | | | | | MEDICAL | | | | | | CENTER | | | | | | LABORATORY | | + +---------+ + + + + + | Specimen | + + | | + + + + + + + | Performing | Address | City/State/Zipcode | Phone Number | | Organization | | | | + + + + + | [facility] | [address] | [place] [address] | | | [facility] | | | | | LABORATORY | | | | + + + + + CBC no Differential (11/02/2016 2:11 AM PDT) + + + + + + | Component | Value | Ref Range | Performed | Pathologist | | | | | At | Signature | + + + + + + | WBC | 19.6 (H) | 3.8 - 11.0 K/uL | [facility] | | | | [facility] | | [facility] | | [facility] | | | | | | MEDICAL | | | | | | CENTER | | | | | | LABORATORY | | + + + + + + | RBC | 2.90 (L) | 3.70 - 5.10 | [facility] | | | | | M/uL | [facility] | | | | | | HE[facility] | | | | | | MEDICAL | | | | | | CENTER | | | | | | LABORATORY | | + + + + + + | Hemoglobin | 9.9 (L) | 11.3 - 15.5 | [facility] | | | | | g/dL | [facility] | | | | | | HEART | | | | | | MEDICAL | | | | | | CENTER | | | | | | LABORATORY | | + + + + + + | Hematocrit | 29.5 (L) | 34.0 - 46.0 % | [facility] | | | | | [facility] | | | | | [facility] | | | | | | MED[facility] | | | | | | CENTER | | | | | | LABORATORY | | + + + + + + | MCV | 101.7 (H) | 80.0 - 100.0 fL | [facility] | | | | [facility] | | | | | [facility] | | | | | | MEDICAL | | | | | | CENTER | | | | | | LABORATORY | | + + + + + + | MCH | 34.0 | 27.0 - 34.0 pg | [facility] | | | | | | [facility] | | | | | | [facility] | | | | | | MEDICAL | | | | | | CENTER | | | | | | LABORATORY | | + + + + + + | MCHC | 33.4 | 32.0 - 35.5 | [facility] | | | | | g/dL | [facility] | | | | | | HEART | | | | | | MEDICAL | | | | | | CENTER | | | | | | LABORATORY | | + + + + + + | RDW-CV | 13.2 | 11.0 - 15.5 % | [facility] | | | | | | [facility] | | | | | | [facility] | | | | | | MEDICAL | | | | | | CENTER | | | | | | LABORATORY | | + + + + + + | Platelet | 244 | 150 - 400 K/uL | [facility] | | | Count | | | [facility] | | | | | | [facility] | | | | | | MEDICAL | | | | | | CENTER | | | | | | LABORATORY | | + + + + + + + + | Specimen | + + | Blood | + + + + + + + | Performing | Address | City/State/Zipcode | Phone Number | | Organization | | | | + + + + + | [facility] | [address] | [place] [address] | | | [facility] | | | | | LABORATORY | | | | + + + + + Basic Metabolic Panel (11/02/2016 2:11 AM PDT) + + + + + + | Component | Value | Ref Range | Performed | Pathologist | | | | | At | Signature | + + + + + + | Na | 142 | 135 - 145 | [facility] | | | | | mmol/L | [facility] | | | | | | HEART | | | | | | MEDICAL | | | | | | CENTER | | | | | | LABORATORY | | + + + + + + | K | 4.0 | 3.5 - 5.0 | [facility] | | | | | mmol/L | [facility] | | | | | | HEART | | | | | | MEDICAL | | | | | | CENTER | | | | | | LABORATORY | | + + + + + + | Cl | 107 | 99 - 109 mmol/L | [facility] | | | | | | [facility] | | | | | | HE[facility] | | | | | | MEDICAL | | | | | | CENTER | | | | | | LABORATORY | | + + + + + + | CO2 | 27 | 21 - 28 mmol/L | [facility] | | | | | | [facility] | | | | | | [facility] | | | | | | MEDICAL | | | | | | CENTER | | | | | | LABORATORY | | + + + + + + | Glucose | 131 (H)Comment: Wallis[place] | 65 - 99 mg/dL | [facility] | | | | Diabetes Association | | [facility] | | | | diagnostic categories | | HEART | | | | for non adults: | | MEDICAL | | | | Impaired fasting | | CENTER | | | | glucose 100 to 125 | | LABORATORY | | | | mg/dL. A fasting | | | | | | glucose result of 126 | | | | | | mg/dL or greater | | | | | | indicates diabetes if | | | | | | the abnormality is | | | | | | confirmed on a | | | | | | subsequent day. A | | | | | | random glucose result of | | | | | | greater than 200 mg/dL | | | | | | indicates diabetes if | | | | | | the abnormality is | | | | | | confirmed on a | | | | | | subsequent day. | | | | + + + + + + | BUN | 17 | 8 - 25 mg/dL | [facility] | | | | | | [facility] | | | | | | HE[facility] | | | | | | MEDICAL | | | | | | CENTER | | | | | | LABORATORY | | + + + + + + | Creatinine | 0.75Comment: IDMS | 0.50 - 1.00 | [facility] | | | | traceable creatinine | mg/dL | [facility] | | | | | | HEART | | | | | | MEDICAL | | | | | | CENTER | | | | | | LABORATORY | | + + + + + + | Calcium | 8.5 | 8.5 - 10.2 | [facility] | | | | | mg/dL | [facility] | | | | | | HEART | | | | | | MEDICAL | | | | | | CENTER | | | | | | LABORATORY | | + + + + + + | Anion Gap | 8 | 5 - 16 mmol/L | [facility] | | | | | | [facility] | | | | | | HEART | | | | | | MEDICAL | | | | | | CENTER | | | | | | LABORATORY | | + + + + + + | Estimated | >60Comment: GFR <60: | >60 | [facility] | | | GFR | Chronic kidney disease, | ml/min/1.73m2 | [facility] | | | | if found over a 3 month | | HEART | | | | period.GFR <15: Kidney | | MEDICAL | | | | failure.For | | CENTER | | | | Americans, multiply the | | LABORATORY | | | | calculated GFR by 1.210 | | | | + + + + + + + + | Specimen | + + | Blood | + + + + + + + | Performing | Address | City/State/Zipcode | Phone Number | | Organization | | | | + + + + + | [facility] | [address] | [place] [address] | | | [facility] | | | | | LABORATORY | | | | + + + + + POC Glucose (11/02/2016 2:05 AM PDT) + +---------+ + + + | Component | Value | Ref Range | Performed | Pathologist | | | | | At | Signature | + +---------+ + + + | Glucose, | 134 (H) | 65 - 99 mg/dL | [facility] | | | POC | | | [facility] | | | | | | HE[facility] | | | | | | MEDICAL | | | | | | CENTER | | | | | | LABORATORY | | + +---------+ + + + + + | Specimen | + + | | + + + + + + + | Performing | Address | City/State/Zipcode | Phone Number | | Organization | | | | + + + + + | [facility] | [address] | [place] [address] | | | [facility] | | | | | LABORATORY | | | | + + + + + XR Chest AP Portable (11/02/2016 1:17 AM PDT) + + | Specimen | + + | | + + + + + | Narrative | Performed At | + + + | CHEST PORTABLE ONE VIEW CLINICAL INFORMATION: Post open | [facility] | | heart surgery. Now having chest discomfort. COMPARISON: X-ray | | | yesterday. FINDINGS/IMPRESSION: 1. ET tube and NG tube have been | | | removed. The remaining lines and support devices are unchanged in | | | position. 2. Low lung volumes. There are increased hazy reticular | | | opacities in the perihilar regions and lung bases, which may reflect | | | atelectasis or interstitial edema. Prominent gastric air bubble. | | | 3. Cardiomediastinal contours are stable. 4. No visible pneumothorax. | | | Signed by: Annie Larsen | | + + + + + | Procedure Note | + + | Remington, Rad Results In 11/02/2016 2:35 AM PDT | | | | CHEST PORTABLE ONE VIEW | | | | CLINICAL INFORMATION: | | Post open heart surgery. Now having chest discomfort. | | | | COMPARISON: | | X-ray yesterday. | | | | FINDINGS/IMPRESSION: | | 1. ET tube and NG tube have been removed. The remaining lines and | | support devices are unchanged in position. | | 2. Low lung volumes. There are increased hazy reticular opacities in | | the perihilar regions and lung bases, which may reflect atelectasis | | or interstitial edema. Prominent gastric air bubble. | | 3. Cardiomediastinal contours are stable. | | 4. No visible pneumothorax. | | | | | | | | Signed by: Annie Larsen | + + + +---------+ + + | Performing | Address | City/State/Zipcode | Phone Number | | Organization | | | | + +---------+ + + | [facility] | | | | + +---------+ + + POC Glucose (11/02/2016 1:05 AM PDT) + +---------+ + + + | Component | Value | Ref Range | Performed | Pathologist | | | | | At | Signature | + +---------+ + + + | Glucose, | 109 (H) | 65 - 99 mg/dL | [facility] | | | POC | | | [facility] | | | | | | HEART | | | | | | MEDICAL | | | | | | CENTER | | | | | | LABORATORY | | + +---------+ + + + + + | Specimen | + + | | + + + + + + + | Performing | Address | City/State/Zipcode | Phone Number | | Organization | | | | + + + + + | [facility] | [address] | [place] [address] | | | [facility] | | | | | LABORATORY | | | | + + + + + POC Glucose (11/02/2016 12:07 AM PDT) + +---------+ + + + | Component | Value | Ref Range | Performed | Pathologist | | | | | At | Signature | + +---------+ + + + | Glucose, | 113 (H) | 65 - 99 mg/dL | [facility] | | | POC | | | [facility] | | | | | | HE[facility] | | | | | | MEDICAL | | | | | | CENTER | | | | | | LABORATORY | | + +---------+ + + + + + | Specimen | + + | | + + + + + + + | Performing | Address | City/State/Zipcode | Phone Number | | Organization | | | | + + + + + | [facility] | [address] | [place] [address] | | | [facility] | | | | | LABORATORY | | | | + + + + + POC Glucose (11/01/2016 10:41 PM PDT) + +---------+ + + + | Component | Value | Ref Range | Performed | Pathologist | | | | | At | Signature | + +---------+ + + + | Glucose, | 125 (H) | 65 - 99 mg/dL | [facility] | | | POC | | | [facility] | | | | | | HEART | | | | | | MEDICAL | | | | | | CENTER | | | | | | LABORATORY | | + +---------+ + + + + + | Specimen | + + | | + + + + + + + | Performing | Address | City/State/Zipcode | Phone Number | | Organization | | | | + + + + + | [facility] | [address] | [place] [address] | | | [facility] | | | | | LABORATORY | | | | + + + + + POC Glucose (11/01/2016 10:02 PM PDT) + +---------+ + + + | Component | Value | Ref Range | Performed | Pathologist | | | | | At | Signature | + +---------+ + + + | Glucose, | 119 (H) | 65 - 99 mg/dL | [facility] | | | POC | | | [facility] | | | | | | HEART | | | | | | MEDICAL | | | | | | CENTER | | | | | | LABORATORY | | + +---------+ + + + + + | Specimen | + + | | + + + + + + + | Performing | Address | City/State/Zipcode | Phone Number | | Organization | | | | + + + + + | [facility] | [address] | [place] [address] | | | [facility] | | | | | LABORATORY | | | | + + + + + POC Glucose (11/01/2016 9:12 PM PDT) + +---------+ + + + | Component | Value | Ref Range | Performed | Pathologist | | | | | At | Signature | + +---------+ + + + | Glucose, | 119 (H) | 65 - 99 mg/dL | [facility] | | | POC | | | [facility] | | | | | | HEART | | | | | | MEDICAL | | | | | | CENTER | | | | | | LABORATORY | | + +---------+ + + + + + | Specimen | + + | | + + + + + + + | Performing | Address | City/State/Zipcode | Phone Number | | Organization | | | | + + + + + | [facility] | [address] | [place] [address] | | | [facility] | | | | | LABORATORY | | | | + + + + + POC Glucose (11/01/2016 7:05 PM PDT) + +---------+ + + + | Component | Value | Ref Range | Performed | Pathologist | | | | | At | Signature | + +---------+ + + + | Glucose, | 124 (H) | 65 - 99 mg/dL | [facility] | | | POC | | | [facility] | | | | | | HEART | | | | | | MEDICAL | | | | | | CENTER | | | | | | LABORATORY | | + +---------+ + + + + + | Specimen | + + | | + + + + + + + | Performing | Address | City/State/Zipcode | Phone Number | | Organization | | | | + + + + + | [facility] | [address] | [place] [address] | | | [facility] | | | | | LABORATORY | | | | + + + + + Blood Gas, Arterial (11/01/2016 6:25 PM PDT) + + + + + + | Component | Value | Ref Range | Performed | Pathologist | | | | | At | Signature | + + + + + + | pH, | 7.36 (L) | 7.37 - 7.47 | [facility] | | | Arterial | | | [facility] | | | | | | HEART | | | | | | MEDICAL | | | | | | CENTER | | | | | | LABORATORY | | + + + + + + | pCO2, | 44 (H) | 32 - 43 mm Hg | [facility] | | | Arterial | | | [facility] | | | | | | HEART | | | | | | MEDICAL | | | | | | CENTER | | | | | | LABORATORY | | + + + + + + | pO2, | 113 (H) | 65 - 80 mm Hg | [facility] | | | Arterial | | | [facility] | | | | | | HEART | | | | | | MEDICAL | | | | | | CENTER | | | | | | LABORATORY | | + + + + + + | Oxygen | 14.8 (L) | 15 - 23 Vol % | [facility] | | | Content, | | | [facility] | | | Arterial | | | HEART | | | | | | MEDICAL | | | | | | CENTER | | | | | | LABORATORY | | + + + + + + | O2 | 95.2 | 92.0 - 99.9 % | [facility] | | | Saturation, | | | [facility] | | | Arterial | | | HEART | | | | | | MEDICAL | | | | | | CENTER | | | | | | LABORATORY | | + + + + + + | HCO3, | 24.6 | 23.0 - 28.0 | [facility] | | | Arterial | | mmol/L | [facility] | | | | | | HEART | | | | | | MEDICAL | | | | | | CENTER | | | | | | LABORATORY | | + + + + + + | Base | 0.4 | 0.0 - 2.5 | [facility] | | | deficit | | mmol/L | [facility] | | | | | | HEART | | | | | | MEDICAL | | | | | | CENTER | | | | | | LABORATORY | | + + + + + + | Hgb, Blood | 10.9 (L) | 11.3 - 15.5 | [facility] | | | Gas | | g/dL | [facility] | | | | | | HEART | | | | | | MEDICAL | | | | | | CENTER | | | | | | LABORATORY | | + + + + + + | Carboxyhemo | 1.1 | 1.0 - 3.0 % | [facility] | | | globin | | | [facility] | | | | | | HEART | | | | | | MEDICAL | | | | | | CENTER | | | | | | LABORATORY | | + + + + + + | Methemoglob | 1.3 | 0.4 - 1.5 % | [facility] | | | in, Venous | | | [facility] | | | | | | HEART | | | | | | MEDICAL | | | | | | CENTER | | | | | | LABORATORY | | + + + + + + | L/min of O2 | SPONT P5 PS 8 SPO2 100% | % | [facility] | | | | RR 18 | | [facility] | | | | | | HEART | | | | | | MEDICAL | | | | | | CENTER | | | | | | LABORATORY | | + + + + + + + + | Specimen | + + | Blood | + + + + + + + | Performing | Address | City/State/Zipcode | Phone Number | | Organization | | | | + + + + + | [facility] | [address] | [place] [address] | | | [facility] | | | | | LABORATORY | | | | + + + + + POC Glucose (11/01/2016 5:57 PM PDT) + +---------+ + + + | Component | Value | Ref Range | Performed | Pathologist | | | | | At | Signature | + +---------+ + + + | Glucose, | 130 (H) | 65 - 99 mg/dL | [facility] | | | POC | | | [facility] | | | | | | HEART | | | | | | MEDICAL | | | | | | CENTER | | | | | | LABORATORY | | + +---------+ + + + + + | Specimen | + + | | + + + + + + + | Performing | Address | City/State/Zipcode | Phone Number | | Organization | | | | + + + + + | [facility] | [address] | [place] [address] | | | [facility] | | | | | LABORATORY | | | | + + + + + Blood Gas, Arterial (11/01/2016 5:47 PM PDT) + + + + + + | Component | Value | Ref Range | Performed | Pathologist | | | | | At | Signature | + + + + + + | pH, | 7.34 (L) | 7.37 - 7.47 | [facility] | | | Arterial | | | [facility] | | | | | | HEART | | | | | | MEDICAL | | | | | | CENTER | | | | | | LABORATORY | | + + + + + + | pCO2, | 47 (H) | 32 - 43 mm Hg | [facility] | | | Arterial | | | [facility] | | | | | | HEART | | | | | | MEDICAL | | | | | | CENTER | | | | | | LABORATORY | | + + + + + + | pO2, | 118 (H) | 65 - 80 mm Hg | [facility] | | | Arterial | | | [facility] | | | | | | HEART | | | | | | MEDICAL | | | | | | CENTER | | | | | | LABORATORY | | + + + + + + | Oxygen | 15.7 | 15 - 23 Vol % | [facility] | | | Content, | | | [facility] | | | Arterial | | | HEART | | | | | | MEDICAL | | | | | | CENTER | | | | | | LABORATORY | | + + + + + + | O2 | 95.6 | 92.0 - 99.9 % | [facility] | | | Saturation, | | | [facility] | | | Arterial | | | HEART | | | | | | MEDICAL | | | | | | CENTER | | | | | | LABORATORY | | + + + + + + | HCO3, | 24.5 | 23.0 - 28.0 | [facility] | | | Arterial | | mmol/L | [facility] | | | | | | HEART | | | | | | MEDICAL | | | | | | CENTER | | | | | | LABORATORY | | + + + + + + | Base | 0.9 | 0.0 - 2.5 | [facility] | | | deficit | | mmol/L | [facility] | | | | | | HEART | | | | | | MEDICAL | | | | | | CENTER | | | | | | LABORATORY | | + + + + + + | Hgb, Blood | 11.6 | 11.3 - 15.5 | [facility] | | | Gas | | g/dL | [facility] | | | | | | HEART | | | | | | MEDICAL | | | | | | CENTER | | | | | | LABORATORY | | + + + + + + | Carboxyhemo | 1.0 | 1.0 - 3.0 % | [facility] | | | globin | | | [facility] | | | | | | HEART | | | | | | MEDICAL | | | | | | CENTER | | | | | | LABORATORY | | + + + + + + | Methemoglob | 1.2 | 0.4 - 1.5 % | [facility] | | | in, Venous | | | [facility] | | | | | | HEART | | | | | | MEDICAL | | | | | | CENTER | | | | | | LABORATORY | | + + + + + + | L/min of O2 | 40% FIO2 | % | [facility] | | | | | | [facility] | | | | | | HEART | | | | | | MEDICAL | | | | | | CENTER | | | | | | LABORATORY | | + + + + + + | Additional | SPONT [id number] | | [facility] | | | Information | | | [facility] | | | | | | HEART | | | | | | MEDICAL | | | | | | CENTER | | | | | | LABORATORY | | + + + + + + + + | Specimen | + + | Blood | + + + + + + + | Performing | Address | City/State/Zipcode | Phone Number | | Organization | | | | + + + + + | [facility] | [address] | [place] [address] | | | [facility] | | | | | LABORATORY | | | | + + + + + POC Glucose (11/01/2016 4:25 PM PDT) + +---------+ + + + | Component | Value | Ref Range | Performed | Pathologist | | | | | At | Signature | + +---------+ + + + | Glucose, | 158 (H) | 65 - 99 mg/dL | [facility] | | | POC | | | [facility] | | | | | | HEART | | | | | | MEDICAL | | | | | | CENTER | | | | | | LABORATORY | | + +---------+ + + + + + | Specimen | + + | | + + + + + + + | Performing | Address | City/State/Zipcode | Phone Number | | Organization | | | | + + + + + | [facility] | [address] | [place] [address] | | | [facility] | | | | | LABORATORY | | | | + + + + + Blood Gas, Arterial (11/01/2016 4:24 PM PDT) + + + + + + | Component | Value | Ref Range | Performed | Pathologist | | | | | At | Signature | + + + + + + | pH, | 7.46 | 7.37 - 7.47 | [facility] | | | Arterial | | | [facility] | | | | | | HEART | | | | | | MEDICAL | | | | | | CENTER | | | | | | LABORATORY | | + + + + + + | pCO2, | 33 | 32 - 43 mm Hg | [facility] | | | Arterial | | | [facility] | | | | | | HEART | | | | | | MEDICAL | | | | | | CENTER | | | | | | LABORATORY | | + + + + + + | pO2, | 116 (H) | 65 - 80 mm Hg | [facility] | | | Arterial | | | [facility] | | | | | | HEART | | | | | | MEDICAL | | | | | | CENTER | | | | | | LABORATORY | | + + + + + + | Oxygen | 16.0 | 15 - 23 Vol % | [facility] | | | Content, | | | [facility] | | | Arterial | | | HEART | | | | | | MEDICAL | | | | | | CENTER | | | | | | LABORATORY | | + + + + + + | O2 | 95.7 | 92.0 - 99.9 % | [facility] | | | Saturation, | | | [facility] | | | Arterial | | | HEART | | | | | | MEDICAL | | | | | | CENTER | | | | | | LABORATORY | | + + + + + + | HCO3, | 23.0 | 23.0 - 28.0 | [facility] | | | Arterial | | mmol/L | [facility] | | | | | | HEART | | | | | | MEDICAL | | | | | | CENTER | | | | | | LABORATORY | | + + + + + + | Base | 0.2 | 0.0 - 2.5 | [facility] | | | Excess, | | mmol/L | [facility] | | | Arterial | | | HEART | | | | | | MEDICAL | | | | | | CENTER | | | | | | LABORATORY | | + + + + + + | Hgb, Blood | 11.8 | 11.3 - 15.5 | [facility] | | | Gas | | g/dL | [facility] | | | | | | HEART | | | | | | MEDICAL | | | | | | CENTER | | | | | | LABORATORY | | + + + + + + | Carboxyhemo | 0.8 (L) | 1.0 - 3.0 % | [facility] | | | globin | | | [facility] | | | | | | HEART | | | | | | MEDICAL | | | | | | CENTER | | | | | | LABORATORY | | + + + + + + | Methemoglob | 1.4 | 0.4 - 1.5 % | [facility] | | | in, Venous | | | [facility] | | | | | | HEART | | | | | | MEDICAL | | | | | | CENTER | | | | | | LABORATORY | | + + + + + + | L/min of O2 | 40% FIO2 | % | [facility] | | | | | | [facility] | | | | | | HE[facility] | | | | | | MEDICAL | | | | | | CENTER | | | | | | LABORATORY | | + + + + + + | Additional | SIMV [id number] PS8 | | [facility] | | | Information | | | [facility] | | | | | | HE[facility] | | | | | | MEDICAL | | | | | | CENTER | | | | | | LABORATORY | | + + + + + + + + | Specimen | + + | Blood | + + + + + + + | Performing | Address | City/State/Zipcode | Phone Number | | Organization | | | | + + + + + | [facility] | [address] | [place] [address] | | | [facility] | | | | | LABORATORY | | | | + + + + + ECHO Transesophageal (ORA) (11/01/2016 2:56 PM PDT) + + | Specimen | + + | | + + + + + | Narrative | Performed At | + + + | | | | | | | Adult Intra-Op | | | ORA Report Patient | | | Name: JACLYN JACKSON: [id number] | | | Study Date: 11/01/2016DOB: 1935 | | | Gender: FemaleAge: 81 yrs | | | Location: [facility] | | | Study: intraop CABG,SCA 2b INTERPRETATION SUMMARY: Selective PWD and | | | 3D imaging also performed. Intraop ORA for CABG (for CAD) Preop Dx | | | Summary:1. Normal LV function EF 65, mild concentric hypertrophy (11 | | | mm) normalwall motion.2. Normal RV. Normal atria and LA appendage. No | | | shunt by CFD.3. Calcifed ~ 1 cm area in posterior mitral annulus. | | | Otherwise valvestructure relatively normal.4. Mild central MR, trace | | | central AI, no , trace TR, trace NM.5. Normal aorta other than mild | | | calcification at ST junction. Normaldiameter. Normal PA.6. No | | | effusions. Postop Dx:1. Hypercontractile LV, EF 65-70, no RWMA2. No | | | change in visible portions of aorta after decannulation.3. No change | | | in ventriclar function compared to preop.4. No change in valves | | | compared to preop. Procedure:1. CABG x 3 Left Ventricle:Normal LV fxn | | | with visually estimated LVEF 65%. Normal LV size and shape.Mild | | | concentric hypertrophy. Inferolateral wall 11 mm. No wall | | | motionabnormalitesPOSTOP: No change compared to preop. Right | | | Ventricle:Normal RV size, thickness and function.POSTOP: No change | | | compared to preop. Atria:No obvious atrial enlargement (LA difficult | | | to assess with ORA). LAAnormal size without SEC, masses, or thrombi. | | | FER inflow and outflowvelocities WNL. IAS intact, no PFO | | | detected.POSTOP: No change compared to preop. Mitral Valve:Mild mitral | | | regurgitation with central jet. Leaflets of normal thicknesswith | | | normal opening. Moderate MAC of posterior annulus with calcifiedapprox | | | 8 mm nodule protruding into ventricular side of mitral annulus. | | | Noleaflet prolapse. No ROD. No LVOT turbulence.POSTOP: No change | | | compared to preop. Tricuspid Valve:Normal tricuspid leaflet thickness | | | and opening. Trace tricuspidregurgitation. Hepatic vein flow normal | | | pattern.POSTOP: No change compared to preop. Aortic Valve:Trileaflet | | | aortic valve. No aortic stenosis. Short segment ofcalcification along | | | posterior half of left coronary cusp with minimaleffect on leaflet | | | motion.Trace central aortic insufficiency.POSTOP: No change compared | | | to preop. Pulmonic Valve:Good visualization of pulmonic valve. Trace | | | pulmonic regurgitation.POSTOP: No change compared to preop. Great | | | Vessels:Normally-sized aortic root. Visible portions of ascending | | | aorta normal.Sinotubular junction calcified. Descending aorta of | | | normal diameter.Atherosclerosis in descending aorta is Grade I - Less | | | than 1 mmthickening.. Pulmonary artery is normal.POSTOP: No change in | | | visible portions of aorta compared to preop afterdecannulation. | | | Other:Normal pericardium. No pericardial effusion. No pleural | | | effusion.POSTOP: No pericardial or pleural effusion after sternal | | | closure. Comments:1. Images acquired during general anesthesia with | | | positive pressureventilation.2. Preop rhythm: SR. Postop rhythm SR.3. | | | Vasoactive medications during preop image acquistion: | | | Phenylephrineinfusion titrated to maintain normal BP. Vasoactive | | | medications duringpostop image acquistion: Clevidipine as needed to | | | titrate BP MMode/2D Measurements & CalculationsLVPWd: 1.0 cm Doppler | | | Measurements & CalculationsLV V1 max P.2 mmHgLV V1 mean P.0 | | | mmHgLV V1 max: 102.0 cm/secLV V1 VTI: 20.5 cm Interpreting Physician: | | | Fredy Almaguer MDelectronically signed on 11/01/2016 02:27 | | | PMOrdering Physician: Christina Loo MDEchocardiographer: Fredy | | | Song Almaguer MD | | |leaflet prolapse. No ROD. No LVOT turbulence. | | |POSTOP: No change compared to preop. | | | | | |Tricuspid Valve: | | |Normal tricuspid leaflet thickness and opening. Trace tricuspid | | |regurgitation. Hepatic vein flow normal pattern. | | |POSTOP: No change compared to preop. | | | | | |Aortic Valve: | | |Trileaflet aortic valve. No aortic stenosis. Short segment of | | |calcification along posterior half of left coronary cusp with minimal | | |effect on leaflet motion.Trace central aortic insufficiency. | | |POSTOP: No change compared to preop. | | | | | |Pulmonic Valve: | | |Good visualization of pulmonic valve. Trace pulmonic regurgitation. | | |POSTOP: No change compared to preop. | | | | | |Great Vessels: | | |Normally-sized aortic root. Visible portions of ascending aorta normal. | | |Sinotubular junction calcified. Descending aorta of normal diameter. | | |Atherosclerosis in descending aorta is Grade I - Less than 1 mm | | |thickening.. Pulmonary artery is normal. | | |POSTOP: No change in visible portions of aorta compared to preop after | | |decannulation. | | | | | |Other: | | |Normal pericardium. No pericardial effusion. No pleural effusion. | | |POSTOP: No pericardial or pleural effusion after sternal closure. | | | | | |Comments: | | |1. Images acquired during general anesthesia with positive pressure | | |ventilation. | | |2. Preop rhythm: SR. Postop rhythm SR. | | |3. Vasoactive medications during preop image acquistion: Phenylephrine | | |infusion titrated to maintain normal BP. Vasoactive medications during | | |postop image acquistion: Clevidipine as needed to titrate BP | | | | | |MMode/2D Measurements & Calculations | | |LVPWd: 1.0 cm | | | | | |Doppler Measurements & Calculations | | |LV V1 max P.2 mmHg | | |LV V1 mean P.0 mmHg | | |LV V1 max: 102.0 cm/sec | | |LV V1 VTI: 20.5 cm | | | | | |Interpreting Physician: Fredy Almaguer MD | | |electronically signed on 11/01/2016 02:27 PM | | |Ordering Physician: Christina Loo MD | | |Supervisor Paper Machine: Fredy Almaguer MD | | | | | + + + + + | Procedure Note | + + | Remington, Rad Results In - 11/01/2016 2:28 PM PDT | | Adult Intra-Op | | ORA Report | | | | Patient Name: JACLYN JACKSON | | Study Date: 11/01/2016 | | : 1935 Gender: Female | | Age: 81 yrs Location: [facility] MAIN OR P | | OOL | | Reason For Study: intraop CABG, | | SCA 2b | | | | INTERPRETATION SUMMARY: | | | | Selective PWD and 3D imaging also performed. | | | | Intraop ORA for CABG (for CAD) | | | | Preop Dx Summary: | | 1. Normal LV function EF 65, mild concentric hypertrophy (11 mm) normal | | wall motion. | | 2. Normal RV. Normal atria and LA appendage. No shunt by CFD. | | 3. Calcifed ~ 1 cm area in posterior mitral annulus. Otherwise valve | | structure relatively normal. | | 4. Mild central MR, trace central AI, no , trace TR, trace NM. | | 5. Normal aorta other than mild calcification at ST junction. Normal | | diameter. Normal PA. | | 6. No effusions. | | | | Postop Dx: | | 1. Hypercontractile LV, EF 65-70, no RWMA | | 2. No change in visible portions of aorta after decannulation. | | 3. No change in ventriclar function compared to preop. | | 4. No change in valves compared to preop. | | | | Procedure: | | 1. CABG x 3 | | | | Left Ventricle: | | Normal LV fxn with visually estimated LVEF 65%. Normal LV size and shape. | | Mild concentric hypertrophy. Inferolateral wall 11 mm. No wall motion | | abnormalites | | POSTOP: No change compared to preop. | | | | Right Ventricle: | | Normal RV size, thickness and function. | | POSTOP: No change compared to preop. | | | | Atria: | | No obvious atrial enlargement (LA difficult to assess with ORA). FER | | normal size without SEC, masses, or thrombi. FER inflow and outflow | | velocities WNL. IAS intact, no PFO detected. | | POSTOP: No change compared to preop. | | | | Mitral Valve: | | Mild mitral regurgitation with central jet. Leaflets of normal thickness | | with normal opening. Moderate MAC of posterior annulus with calcified | | approx 8 mm nodule protruding into ventricular side of mitral annulus. No | | leaflet prolapse. No ROD. No LVOT turbulence. | | POSTOP: No change compared to preop. | | | | Tricuspid Valve: | | Normal tricuspid leaflet thickness and opening. Trace tricuspid | | regurgitation. Hepatic vein flow normal pattern. | | POSTOP: No change compared to preop. | | | | Aortic Valve: | | Trileaflet aortic valve. No aortic stenosis. Short segment of | | calcification along posterior half of left coronary cusp with minimal | | effect on leaflet motion.Trace central aortic insufficiency. | | POSTOP: No change compared to preop. | | | | Pulmonic Valve: | | Good visualization of pulmonic valve. Trace pulmonic regurgitation. | | POSTOP: No change compared to preop. | | | | Great Vessels: | | Normally-sized aortic root. Visible portions of ascending aorta normal. | | Sinotubular junction calcified. Descending aorta of normal diameter. | | Atherosclerosis in descending aorta is Grade I - Less than 1 mm | | thickening.. Pulmonary artery is normal. | | POSTOP: No change in visible portions of aorta compared to preop after | | decannulation. | | | | Other: | | Normal pericardium. No pericardial effusion. No pleural effusion. | | POSTOP: No pericardial or pleural effusion after sternal closure. | | | | Comments: | | 1. Images acquired during general anesthesia with positive pressure | | ventilation. | | 2. Preop rhythm: SR. Postop rhythm SR. | | 3. Vasoactive medications during preop image acquistion: Phenylephrine | | infusion titrated to maintain normal BP. Vasoactive medications during | | postop image acquistion: Clevidipine as needed to titrate BP | | | | MMode/2D Measurements & Calculations | | LVPWd: 1.0 cm | | | | Doppler Measurements & Calculations | | LV V1 max P.2 mmHg | | LV V1 mean P.0 mmHg | | LV V1 max: 102.0 cm/sec | | LV V1 VTI: 20.5 cm | | | | Interpreting Physician: Fredy Almaguer MD | | electronically signed on 11/01/2016 02:27 PM | | Ordering Physician: Christina Loo MD | | Supervisor Paper Machine: Fredy Almaguer MD | + + Potassium (11/01/2016 2:37 PM PDT) + + + + + + | Component | Value | Ref Range | Performed | Pathologist | | | | | At | Signature | + + + + + + | K | 4.2Comment: Specimen | 3.5 - 5.0 | [facility] | | | | hemolyzed, results may | mmol/L | [facility] | | | | be affected. | | HE[facility] | | | | | | MED[facility] | | | | | | CENTER | | | | | | LABORATORY | | + + + + + + + + | Specimen | + + | Blood | + + + + + + + | Performing | Address | City/State/Zipcode | Phone Number | | Organization | | | | + + + + + | [facility] | [address] | [place] [address] | | | [facility] | | | | | LABORATORY | | | | + + + + + CBC no Differential (11/01/2016 2:37 PM PDT) + + + + + + | Component | Value | Ref Range | Performed | Pathologist | | | | | At | Signature | + + + + + + | WBC | 22.8 (H) | 3.8 - 11.0 K/uL | [facility] | | | | | | [facility] | | | | | [facility] | | | | | | [facility] | | | | | | CENTER | | | | | | LABORATORY | | + + + + + + | RBC | 3.33 (L) | 3.70 - 5.10 | [facility] | | | | | M/uL | [facility] | | | | | | [facility] | | | | | | MEDICAL | | | | | | CENTER | | | | | | LABORATORY | | + + + + + + | Hemoglobin | 11.7Comment: Verified by | 11.3 - 15.5 | [facility] | | | | repeat analysis. | g/dL | [facility] | | | | | | [facility] | | | | | | MED[facility] | | | | | | CENTER | | | | | | LABORATORY | | + + + + + + | Hematocrit | 33.7 (L) | 34.0 - 46.0 % | [facility] | | | | | | [facility] | | | | | | [facility] | | | | | | [facility] | | | | | | CENTER | | | | | | LABORATORY | | + + + + + + | MCV | 101.1 (H) | 80.0 - 100.0 fL | [facility] | | | | | | [facility] | | | | | | [facility] | | | | | | [facility] | | | | | | CENTER | | | | | | LABORATORY | | + + + + + + | MCH | 35.0 (H) | 27.0 - 34.0 pg | [facility] | | | | | | [facility] | | | | | | [facility] | | | | | | MEDICAL | | | | | | CENTER | | | | | | LABORATORY | | + + + + + + | MCHC | 34.6 | 32.0 - 35.5 | [facility] | | | | | g/dL | [facility] | | | | | | HE[facility] | | | | | | MEDICAL | | | | | | CENTER | | | | | | LABORATORY | | + + + + + + | RDW-CV | 12.9 | 11.0 - 15.5 % | [facility] | | | | | | [facility] | | | | | | [facility] | | | | | | [facility] | | | | | | CENTER | | | | | | LABORATORY | | + + + + + + | Platelet | 239Comment: Verified by | 150 - 400 K/uL | [facility] | | | Count | repeat analysis. | | [facility] | | | | | | [facility] | | | | | | MEDICAL | | | | | | CENTER | | | | | | LABORATORY | | + + + + + + + + | Specimen | + + | Blood | + + + + + + + | Performing | Address | City/State/Zipcode | Phone Number | | Organization | | | | + + + + + | [facility] | [address] | [place] [address] | | | [facility] | | | | | LABORATORY | | | | + + + + + Lactic Acid, Arterial, Respiratory (11/01/2016 2:25 PM PDT) + +-------+ + + + | Component | Value | Ref Range | Performed | Pathologist | | | | | At | Signature | + +-------+ + + + | Lactate, | 1.3 | 0.5 - 1.6 | [facility] | | | Arterial | | mmol/L | [facility] | | | | | | [facility] | | | | | | MEDICAL | | | | | | CENTER | | | | | | LABORATORY | | + +-------+ + + + + + | Specimen | + + | | + + + + + + + | Performing | Address | City/State/Zipcode | Phone Number | | Organization | | | | + + + + + | [facility] | [address] | [place] [address] | | | [facility] | | | | | LABORATORY | | | | + + + + + Potassium Whole Blood (11/01/2016 2:25 PM PDT) + +-------+ + + + | Component | Value | Ref Range | Performed | Pathologist | | | | | At | Signature | + +-------+ + + + | K | 4.3 | 3.5 - 5.0 | [facility] | | | | | mmol/L | [facility] | | | | | | HE[facility] | | | | | | MEDICAL | | | | | | CENTER | | | | | | LABORATORY | | + +-------+ + + + + + | Specimen | + + | | + + + + + + + | Performing | Address | City/State/Zipcode | Phone Number | | Organization | | | | + + + + + | [facility] | [address] | [place] [address] | | | [facility] | | | | | LABORATORY | | | | + + + + + Calcium, Ionized, Respiratory (11/01/2016 2:25 PM PDT) + +-------+ + + + | Component | Value | Ref Range | Performed | Pathologist | | | | | At | Signature | + +-------+ + + + | Calcium, | 4.75 | 4.75 - 5.30 | [facility] | | | Ionized | | mg/dL | [facility] | | | | | | HE[facility] | | | | | | MEDICAL | | | | | | CENTER | | | | | | LABORATORY | | + +-------+ + + + | Calcium, pH | 4.92 | 4.75 - 5.30 | [facility] | | | Normalized | | mg/dL | [facility] | | | | | | [facility] | | | | | | MEDICAL | | | | | | CENTER | | | | | | LABORATORY | | + +-------+ + + + + + | Specimen | + + | | + + + + + + + | Performing | Address | City/State/Zipcode | Phone Number | | Organization | | | | + + + + + | [facility] | [address] | [place] [address] | | | [facility] | | | | | LABORATORY | | | | + + + + + Glucose, Respiratory (11/01/2016 2:25 PM PDT) + +---------+ + + + | Component | Value | Ref Range | Performed | Pathologist | | | | | At | Signature | + +---------+ + + + | Glucose | 142 (H) | 65 - 99 mg/dL | [facility] | | | | | | [facility] | | | | | | [facility] | | | | | | MEDICAL | | | | | | CENTER | | | | | | LABORATORY | | + +---------+ + + + + + | Specimen | + + | | + + + + + + + | Performing | Address | City/State/Zipcode | Phone Number | | Organization | | | | + + + + + | [facility] | [address] | [place] [address] | | | [facility] | | | | | LABORATORY | | | | + + + + + Blood Gas, Arterial (11/01/2016 2:25 PM PDT) + + + + + + | Component | Value | Ref Range | Performed | Pathologist | | | | | At | Signature | + + + + + + | pH, | 7.47 | 7.37 - 7.47 | [facility] | | | Arterial | | | [facility] | | | | | | HE[facility] | | | | | | MEDICAL | | | | | | CENTER | | | | | | LABORATORY | | + + + + + + | pCO2, | 35 | 32 - 43 mm Hg | [facility] | | | Arterial | | | [facility] | | | | | | HE[facility] | | | | | | MEDICAL | | | | | | CENTER | | | | | | LABORATORY | | + + + + + + | pO2, | 156 (H) | 65 - 80 mm Hg | [facility] | | | Arterial | | | [facility] | | | | | | HE[facility] | | | | | | MEDICAL | | | | | | CENTER | | | | | | LABORATORY | | + + + + + + | Oxygen | 16.4 | 15 - 23 Vol % | [facility] | | | Content, | | | [facility] | | | Arterial | | | HEART | | | | | | MEDICAL | | | | | | CENTER | | | | | | LABORATORY | | + + + + + + | O2 | 96.8 | 92.0 - 99.9 % | [facility] | | | Saturation, | | | [facility] | | | Arterial | | | HEART | | | | | | MEDICAL | | | | | | CENTER | | | | | | LABORATORY | | + + + + + + | HCO3, | 25.0 | 23.0 - 28.0 | [facility] | | | Arterial | | mmol/L | [facility] | | | | | | HE[facility] | | | | | | MEDICAL | | | | | | CENTER | | | | | | LABORATORY | | + + + + + + | Base | 2.0 | 0.0 - 2.5 | [facility] | | | Excess, | | mmol/L | [facility] | | | Arterial | | | HEART | | | | | | MEDICAL | | | | | | CENTER | | | | | | LABORATORY | | + + + + + + | Hgb, Blood | 11.9 | 11.3 - 15.5 | [facility] | | | Gas | | g/dL | [facility] | | | | | | HE[facility] | | | | | | MEDICAL | | | | | | CENTER | | | | | | LABORATORY | | + + + + + + | Carboxyhemo | 0.6 (L) | 1.0 - 3.0 % | [facility] | | | globin | | | [facility] | | | | | | HE[facility] | | | | | | MEDICAL | | | | | | CENTER | | | | | | LABORATORY | | + + + + + + | Methemoglob | 1.4 | 0.4 - 1.5 % | [facility] | | | in, Venous | | | [facility] | | | | | | HEART | | | | | | MEDICAL | | | | | | CENTER | | | | | | LABORATORY | | + + + + + + | L/min of O2 | 60% [id number] P5 PS8 | % | [facility] | | | | [id number] | | [facility] | | | | | | HE[facility] | | | | | | MEDICAL | | | | | | CENTER | | | | | | LABORATORY | | + + + + + + | Additional | RR14 | | [facility] | | | Information | | | [facility] | | | | | | [facility] | | | | | | MEDICAL | | | | | | CENTER | | | | | | LABORATORY | | + + + + + + + + | Specimen | + + | Blood | + + + + + + + | Performing | Address | City/State/Zipcode | Phone Number | | Organization | | | | + + + + + | [facility] | [address] | [place] [address] | | | [facility] | | | | | LABORATORY | | | | + + + + + ECG 12 lead (11/01/2016 2:21 PM PDT) + + | Specimen | + + | | + + + + + | Narrative | Performed At | + + + | HEART RATE:63 | [facility] | | bpmRR Interval:952 msAtrial Rate:63 msP-R Interval:144 msP | [facility] | | Duration:148 msP Horizontal Mohawk:6 degP Front [place]awk:72 degQ Onset:512 | | | msQRSD Interval:80 msQT Interval:452 msQTcB:463 msQTcF:459 msQRS | | | Horizontal Mohawk:16 degQRS Mohawk:56 degI-40 Horizontal [place]awk:49 degI-40 | | | Front [place]awk:45 degT-40 Horizontal [place]awk:-8 degT-40 Front [place]awk:59 degT | | | Horizontal [place]awk:66 degT Wave [place]awk:64 degS-T Horizontal [place]awk:66 degS-T | | | Front [place]:38 degSeverity:- NORMAL ECG -INTERP:SINUS | | | RHYTHMElectronically signed by: Ramin PEREZ 11-01-2016 16:20:01 | | |QT Interval:452 ms | | |QTcB:463 ms | | |QTcF:459 ms | | |QRS Horizontal Mohawk:16 deg | | |QRS Mohawk:56 deg | | |I-40 Horizontal [place]awk:49 deg | | |I-40 Front [place]awk:45 deg | | |T-40 Horizontal [place]awk:-8 deg | | |T-40 Front [place]awk:59 deg | | |T Horizontal [place]awk:66 deg | | |T Wave [place]awk:64 deg | | |S-T Horizontal [place]awk:66 deg | | |S-T Front [place]awk:38 deg | | |Severity:- NORMAL ECG - | | |INTERP:SINUS RHYTHM | | |Electronically signed by: Ramin PEREZ 11-01-2016 16:20:01 | | + + + + + + + + | Performing | Address | City/State/Zipcode | Phone Number | | Organization | | | | + + + + + | [facility] | [address] | [place] [address] | [phone] | + + + + + XR Chest AP Portable (11/01/2016 2:00 PM PDT) + + | Specimen | + + | | + + + + + | Narrative | Performed At | + + + | CHEST SINGLE VIEW CLINICAL INFORMATION: Post open heart. | [facility] | | COMPARISON: Two view chest dated 10/31/2016. FINDINGS: | | | Interval postoperative changes of median sternotomy and CABG. Mild | | | bibasilar densities, likely atelectasis. No pneumothorax. Cardiac | | | silhouette is unchanged. Lines and support devices as follows: | | | Endotracheal tube tip is 4.2 cm above the lara. Left IJ central | | | venous catheter tip projects over the left superior mediastinum. | | | Distal enteric tube tip is within the stomach. Mediastinal and left | | | pleural drains are in place. IMPRESSION: 1. Expected | | | postoperative changes status post median sternotomy and CABG. 2. | | | Left IJ central venous catheter tip projects over the left superior | | | mediastinum and may be within a duplicated SVC, left-sided SVC, left | | | brachiocephalic vein or other vessel. Signed by: Priya, | | | Jose | | + + + + + | Procedure Note | + + | Remington, Rad Results In - 11/01/2016 2:36 PM PDT | | | | CHEST SINGLE VIEW | | | | CLINICAL INFORMATION: | | Post open heart. | | | | COMPARISON: | | Two view chest dated 10/31/2016. | | | | FINDINGS: | | Interval postoperative changes of median sternotomy and CABG. Mild | | bibasilar densities, likely atelectasis. No pneumothorax. Cardiac | | silhouette is unchanged. | | | | Lines and support devices as follows: | | Endotracheal tube tip is 4.2 cm above the lara. | | Left IJ central venous catheter tip projects over the left superior | | mediastinum. | | Distal enteric tube tip is within the stomach. | | Mediastinal and left pleural drains are in place. | | | | IMPRESSION: | | 1. Expected postoperative changes status post median sternotomy and | | CABG. | | 2. Left IJ central venous catheter tip projects over the left | | superior mediastinum and may be within a duplicated SVC, left-sided | | SVC, left brachiocephalic vein or other vessel. | | | | | | | | | | Signed by: Jose Powers | + + + +---------+ + + | Performing | Address | City/State/Zipcode | Phone Number | | Organization | | | | + +---------+ + + | [facility] | | | | + +---------+ + + Lactic Acid, Arterial, Surgery (11/01/2016 1:47 PM PDT) + +-------+ + + + | Component | Value | Ref Range | Performed | Pathologist | | | | | At | Signature | + +-------+ + + + | Lactate, | 1.1 | 0.5 - 1.6 | [facility] | | | Arterial | | mmol/L | [facility] | | | | | | [facility] | | | | | | MEDICAL | | | | | | CENTER | | | | | | LABORATORY | | + +-------+ + + + + + | Specimen | + + | | + + + + + + + | Performing | Address | City/State/Zipcode | Phone Number | | Organization | | | | + + + + + | [facility] | [address] | [place] [address] | | | [facility] | | | | | LABORATORY | | | | + + + + + Blood Gas , Arterial, Surgery (11/01/2016 1:47 PM PDT) + + + + + + | Component | Value | Ref Range | Performed | Pathologist | | | | | At | Signature | + + + + + + | pH, | 7.45 | 7.37 - 7.47 | [facility] | | | Arterial | Comment: | | [facility] | | | | Results delivered to: | | HEART | | | | DR Tommie [facility] | | MEDICAL | | | | | | CENTER | | | | | | LABORATORY | | + + + + + + | pCO2, | 37 | 32 - 43 mm Hg | [facility] | | | Arterial | | | [facility] | | | | | | [facility] | | | | | | MEDICAL | | | | | | CENTER | | | | | | LABORATORY | | + + + + + + | pO2, | 155 | mm Hg | [facility] | | | Arterial | | | [facility] | | | | | | HEART | | | | | | MEDICAL | | | | | | CENTER | | | | | | LABORATORY | | + + + + + + | Base | N/A | 0.0 - 2.5 | [facility] | | | deficit | | mmol/L | [facility] | | | | | | HE[facility] | | | | | | MEDICAL | | | | | | CENTER | | | | | | LABORATORY | | + + + + + + | Base | 2.0 | 0.0 - 2.5 | [facility] | | | Excess, | | mmol/L | [facility] | | | Ar[facility] | | | HEART | | | | | | MEDICAL | | | | | | CENTER | | | | | | LABORATORY | | + + + + + + | HCO3, | 25.6 | 23.0 - 28.0 | [facility] | | | Arterial | | mmol/L | [facility] | | | | | | [facility] | | | | | | MEDICAL | | | | | | CENTER | | | | | | LABORATORY | | + + + + + + | Oxygen | 15.5 | 15 - 23 Vol % | [facility] | | | Content, | | | [facility] | | | Arterial | | | HEART | | | | | | MEDICAL | | | | | | CENTER | | | | | | LABORATORY | | + + + + + + | Hgb, Blood | 11.1 (L) | 11.3 - 15.5 | [facility] | | | Gas | | g/dL | [facility] | | | | | | HE[facility] | | | | | | MEDICAL | | | | | | CENTER | | | | | | LABORATORY | | + + + + + + | HGB O2 SAT | 97.3 | 92.0 - 99.9 % | [facility] | | | | | | [facility] | | | | | | [facility] | | | | | | MEDICAL | | | | | | CENTER | | | | | | LABORATORY | | + + + + + + | Carboxyhemo | 1.0 | 1.0 - 3.0 % | [facility] | | | globin | | | [facility] | | | | | | HE[facility] | | | | | | MEDICAL | | | | | | CENTER | | | | | | LABORATORY | | + + + + + + | Methemoglob | 1.1 | 0.4 - 1.5 % | [facility] | | | in, Venous | | | [facility] | | | | | | [facility] | | | | | | MEDICAL | | | | | | CENTER | | | | | | LABORATORY | | + + + + + + | Calcium, | 4.70 (L) | 4.75 - 5.30 | [facility] | | | Ionized | | mg/dL | [facility] | | | | | | [facility] | | | | | | MEDICAL | | | | | | CENTER | | | | | | LABORATORY | | + + + + + + | Calcium, pH | 4.83 | 4.75 - 5.30 | [facility] | | | Normalized | | mg/dL | [facility] | | | | | | [facility] | | | | | | MEDICAL | | | | | | CENTER | | | | | | LABORATORY | | + + + + + + | Glucose, | 135 (H) | 65 - 99 mg/dL | [facility] | | | POC | | | [facility] | | | | | | [facility] | | | | | | MEDICAL | | | | | | CENTER | | | | | | LABORATORY | | + + + + + + | K | 4.1 | 3.5 - 5.0 | [facility] | | | | | mmol/L | [facility] | | | | | | [facility] | | | | | | MEDICAL | | | | | | CENTER | | | | | | LABORATORY | | + + + + + + | Na | 139 | 135 - 145 | [facility] | | | | | mmol/L | [facility] | | | | | | [facility] | | | | | | MEDICAL | | | | | | CENTER | | | | | | LABORATORY | | + + + + + + + + | Specimen | + + | | + + + + + + + | Performing | Address | City/State/Zipcode | Phone Number | | Organization | | | | + + + + + | [facility] | [address] | [place] [address] | | | [facility] | | | | | LABORATORY | | | | + + + + + Lactic Acid, Arterial, Surgery (11/01/2016 12:31 PM PDT) + +-------+ + + + | Component | Value | Ref Range | Performed | Pathologist | | | | | At | Signature | + +-------+ + + + | Lactate, | 1.3 | 0.5 - 1.6 | [facility] | | | Arterial | | mmol/L | [facility] | | | | | | [facility] | | | | | | MEDICAL | | | | | | CENTER | | | | | | LABORATORY | | + +-------+ + + + + + | Specimen | + + | | + + + + + + + | Performing | Address | City/State/Zipcode | Phone Number | | Organization | | | | + + + + + | [facility] | [address] | [place] [address] | | | [facility] | | | | | LABORATORY | | | | + + + + + Blood Gas , Arterial, Surgery (11/01/2016 12:31 PM PDT) + + + + + + | Component | Value | Ref Range | Performed | Pathologist | | | | | At | Signature | + + + + + + | pH, | 7.47 | 7.37 - 7.47 | [facility] | | | Arterial | Comment: | | [facility] | | | | Results delivered to: | | HEART | | | | [facility] | | MEDICAL | | | | | | CENTER | | | | | | LABORATORY | | + + + + + + | pCO2, | 36 | 32 - 43 mm Hg | [facility] | | | Arterial | | | [facility] | [facility] | | | [facility] | | | | | | [facility] | | | | | | [facility] | | | | | | LABORATORY | | + + + + + + | pO2, | 290 | mm Hg | [facility] | | | Arterial | | | [facility] | | | [facility] | | | | | | [facility] | | | | | | [facility] | | | | | | LABORATORY | | + + + + + + | Base | N/A | 0.0 - 2.5 | [facility] | | | deficit | | mmol/L | [facility] | | [facility] | | | | | | [facility] | | | | | | CENTER | | | | | | LABORATORY | | + + + + + + | Base | 2.6 (H) | 0.0 - 2.5 | [facility] | | | Excess, | | mmol/L | [facility] | | | [facility] | | | [facility] | | | | | | [facility] | | | | | | CENTER | | | | | | LABORATORY | | + + + + + + | HCO3, | 26.0 | 23.0 - 28.0 | [facility] | | | Arterial | | mmol/L | [facility] | | | | | [facility] | | | | | | [facility] | | | | | | [facility]ENTER | | | | | | LABORATORY | | + + + + + + | Oxygen | 13.9 (L) | 15 - 23 Vol % | [facility] | | | Content, | | | [facility] | | | Arterial | | | HEART | | | | | | MED[facility] | | | | | | CENTER | | | | | | LABORATORY | | + + + + + + | Hgb, Blood | 9.6 (L) | 11.3 - 15.5 | [facility] | | | Gas | | g/dL | [facility] | | | | | | [facility] | | | | | | [facility] | | | | | | CENTER | | | | | | LABORATORY | | + + + + + + | HGB O2 SAT | 97.6 | 92.0 - 99.9 % | [facility] | | | | | | [facility] | | | | | | [facility] | | | | | | [facility] | | | | | | [facility]ENTER | | | | | | LABORATORY | | + + + + + + | Carboxyhemo | 1.3 | 1.0 - 3.0 % | [facility] | | | globin | | | [facility] | | | | | | [facility] | | | | | | [facility] | | | | | | CENTER | | | | | | LABORATORY | | + + + + + + | Methemoglob | 1.0 | 0.4 - 1.5 % | [facility] | | | in, Venous | | | [facility] | | | | | | [facility] | | | | | | [facility] | | | | | | CENTER | | | | | | LABORATORY | | + + + + + + | Calcium, | 4.55 (L) | 4.75 - 5.30 | [facility] | | | Ionized | | mg/dL | [facility] | | | | | | [facility] | | | | | | [facility] | | | | | | CENTER | | | | | | LABORATORY | | + + + + + + | Calcium, pH | 4.73 (L) | 4.75 - 5.30 | [facility] | | | Normalized | | mg/dL | [facility] | | | | | | [facility] | | | | | | [facility] | | | | | | CENTER | | | | | | LABORATORY | | + + + + + + | Glucose, | 127 (H) | 65 - 99 mg/dL | [facility] | | | POC | | | [facility] | | | | | | [facility] | | | | | | [facility] | | | | | | [facility]ENTER | | | | | | LABORATORY | | + + + + + + | K | 4.5 | 3.5 - 5.0 | [facility] | | | | | mmol/L | [facility] | | | | | | [facility] | | | | | | [facility] | | | | | | CENTER | | | | | | LABORATORY | | + + + + + + | Na | 137 | 135 - 145 | [facility] | | | | | mmol/L | [facility] | | | | | | [facility] | | | | | | [facility] | | | | | | CENTER | | | | | | LABORATORY | | + + + + + + + + | Specimen | + + | | + + + + + + + | Performing | Address | City/State/Zipcode | Phone Number | | Organization | | | | + + + + + | [facility] | [address] | [place] [address] | | | [facility] | | | | | LABORATORY | | | | + + + + + Lactic Acid, Arterial, Surgery (11/01/2016 11:50 AM PDT) + +---------+ + + + | Component | Value | Ref Range | Performed | Pathologist | | | | | At | Signature | + +---------+ + + + | Lactate, | 2.1 (H) | 0.5 - 1.6 | [facility] | | | Arterial | | mmol/L | [facility] | | | | | | [facility] | | | | | | [facility] | | | | | | CENTER | | | | | | LABORATORY | | + +---------+ + + + + + | Specimen | + + | | + + + + + + + | Performing | Address | City/State/Zipcode | Phone Number | | Organization | | | | + + + + + | [facility] | [address] | [place] [address] | | | [facility] | | | | | LABORATORY | | | | + + + + + Calcium, Ionized, Surgery (11/01/2016 11:50 AM PDT) + + + + + + | Component | Value | Ref Range | Performed | Pathologist | | | | | At | Signature | + + + + + + | Calcium, | >7.80 (H) | 4.75 - 5.30 | [facility] | | | Ionized | | mg/dL | [facility] | | | | | | [facility] | | | | | | MED[facility] | | | | | | CENTER | | | | | | LABORATORY | | + + + + + + | Calcium, pH | N/A | 4.75 - 5.30 | [facility] | | | Normalized | | mg/dL | [facility] | | | | | | [facility] | | | | | | MEDICAL | | | | | | CENTER | | | | | | LABORATORY | | + + + + + + + + | Specimen | + + | | + + + + + + + | Performing | Address | City/State/Zipcode | Phone Number | | Organization | | | | + + + + + | [facility] | [address] | [place] [address] | | | [facility] | | | | | LABORATORY | | | | + + + + + Blood Gas Profile, AGB, Potassium and Glucose, Surgery (11/01/2016 11:50 AM PDT) + + + + + + | Component | Value | Ref Range | Performed | Pathologist | | | | | At | Signature | + + + + + + | pH, | 7.44 | 7.37 - 7.47 | [facility] | | | Arterial | Comment: | | [facility] | | | | Results delivered to: | | HEART | | | | [facility] | | MEDICAL | | | | | | CENTER | | | | | | LABORATORY | | + + + + + + | pCO2, | 38 | 32 - 43 mm Hg | [facility] | | | Arterial | | | [facility] | | | | | | HE[facility] | | | | | | MEDICAL | | | | | | CENTER | | | | | | LABORATORY | | + + + + + + | pO2, | 212 | mm Hg | [facility] | | | Arterial | | | [facility] | | | | | | HE[facility] | | | | | | MEDICAL | | | | | | CENTER | | | | | | LABORATORY | | + + + + + + | Base | N/A | 0.0 - 2.5 | [facility] | | | deficit | | mmol/L | [facility] | | | | | | HE[facility] | | | | | | MEDICAL | | | | | | CENTER | | | | | | LABORATORY | | + + + + + + | Base | 1.2 | 0.0 - 2.5 | [facility] | | | Excess, | | mmol/L | [facility] | | | Arter[facility] | | | HEART | | | | | | MEDICAL | | | | | | CENTER | | | | | | LABORATORY | | + + + + + + | HCO3, | 25.0 | 23.0 - 28.0 | [facility] | | | Arterial | | mmol/L | [facility] | | | | | | [facility] | | | | | | [facility] | | | | | | CENTER | | | | | | LABORATORY | | + + + + + + | Oxygen | 11.9 (L) | 15 - 23 Vol % | [facility] | | | Content, | | | [facility] | | | Arterial | | | HEART | | | | | | MEDICAL | | | | | | CENTER | | | | | | LABORATORY | | + + + + + + | Hgb, Blood | 8.3 (L) | 11.3 - 15.5 | [facility] | | | Gas | | g/dL | [facility] | | | | | | [facility] | | | | | | MEDICAL | | | | | | CENTER | | | | | | LABORATORY | | + + + + + + | HGB O2 SAT | 97.6 | 92.0 - 99.9 % | [facility] | | | | | | [facility] | | | | | | [facility] | | | | | | [facility]ICAL | | | | | | CENTER | | | | | | LABORATORY | | + + + + + + | Carboxyhemo | 1.4 | 1.0 - 3.0 % | [facility] | | | globin | | | [facility] | | | | | | HEART | | | | | | MEDICAL | | | | | | CENTER | | | | | | LABORATORY | | + + + + + + | Methemoglob | 0.8 | 0.4 - 1.5 % | [facility] | | | in, Venous | | | [facility] | | | | | | HE[facility] | | | | | | MEDICAL | | | | | | CENTER | | | | | | LABORATORY | | + + + + + + | K | 5.9 (H) | 3.5 - 5.0 | [facility] | | | | | mmol/L | [facility] | | | | | | [facility] | | | | | | MEDICAL | | | | | | CENTER | | | | | | LABORATORY | | + + + + + + | Glucose, | 128 (H) | 65 - 99 mg/dL | [facility] | | | POC | | | [facility] | | | | | | [facility] | | | | | | MEDICAL | | | | | | CENTER | | | | | | LABORATORY | | + + + + + + + + | Specimen | + + | | + + + + + + + | Performing | Address | City/State/Zipcode | Phone Number | | Organization | | | | + + + + + | [facility] | [address] | [place] [address] | | | [facility] | | | | | LABORATORY | | | | + + + + + Lactic Acid, Arterial, Surgery (11/01/2016 11:31 AM PDT) + +-------+ + + + | Component | Value | Ref Range | Performed | Pathologist | | | | | At | Signature | + +-------+ + + + | Lactate, | 1.3 | 0.5 - 1.6 | [facility] | | | Arterial | | mmol/L | [facility] | | | | | | [facility] | | | | | | MEDICAL | | | | | | CENTER | | | | | | LABORATORY | | + +-------+ + + + + + | Specimen | + + | | + + + + + + + | Performing | Address | City/State/Zipcode | Phone Number | | Organization | | | | + + + + + | [facility] | [address] | [place] [address] | | | [facility] | | | | | LABORATORY | | | | + + + + + Calcium, Ionized, Surgery (11/01/2016 11:31 AM PDT) + + + + + + | Component | Value | Ref Range | Performed | Pathologist | | | | | At | Signature | + + + + + + | Calcium, | 3.65 (L) | 4.75 - 5.30 | [facility] | | | Ionized | | mg/dL | [facility] | | | | | | HE[facility] | | | | | | MEDICAL | | | | | | CENTER | | | | | | LABORATORY | | + + + + + + | Calcium, pH | 3.76 (L) | 4.75 - 5.30 | [facility] | | | Normalized | | mg/dL | [facility] | | | | | | HEART | | | | | | MEDICAL | | | | | | CENTER | | | | | | LABORATORY | | + + + + + + + + | Specimen | + + | | + + + + + + + | Performing | Address | City/State/Zipcode | Phone Number | | Organization | | | | + + + + + | [facility] | [address] | [place] [address] | | | [facility] | | | | | LABORATORY | | | | + + + + + Blood Gas Profile, AGB, Potassium and Glucose, Surgery (11/01/2016 11:31 AM PDT) + + + + + + | Component | Value | Ref Range | Performed | Pathologist | | | | | At | Signature | + + + + + + | pH, | 7.46 | 7.37 - 7.47 | [facility] | | | Arterial | Comment: | | [facility] | | | | Results delivered to: | | HEART | | | | [facility] | | MEDICAL | | | | | | CENTER | | | | | | LABORATORY | | + + + + + + | pCO2, | 40 | 32 - 43 mm Hg | [facility] | | | Arterial | | | [facility] | | | | | | HEART | | | | | | MEDICAL | | | | | | CENTER | | | | | | LABORATORY | | + + + + + + | pO2, | 246 | mm Hg | [facility] | | | Arterial | | | [facility] | | | | | | HEART | | | | | | MEDICAL | | | | | | CENTER | | | | | | LABORATORY | | + + + + + + | Base | N/A | 0.0 - 2.5 | [facility] | | | deficit | | mmol/L | [facility] | | | | | | HEART | | | | | | MEDICAL | | | | | | CENTER | | | | | | LABORATORY | | + + + + + + | Base | 4.1 (H) | 0.0 - 2.5 | [facility] | | | Excess, | | mmol/L | [facility] | | | Arterial | | | HEART | | | | | | MEDICAL | | | | | | CENTER | | | | | | LABORATORY | | + + + + + + | HCO3, | 27.8 | 23.0 - 28.0 | [facility] | | | Arterial | | mmol/L | [facility] | | | | | | HE[facility] | | | | | | MEDICAL | | | | | | CENTER | | | | | | LABORATORY | | + + + + + + | Oxygen | 11.9 (L) | 15 - 23 Vol % | [facility] | | | Content, | | | [facility] | | | Arterial | | | HEART | | | | | | MEDICAL | | | | | | CENTER | | | | | | LABORATORY | | + + + + + + | Hgb, Blood | 8.3 (L) | 11.3 - 15.5 | [facility] | | | Gas | | g/dL | [facility] | | | | | | HEART | | | | | | MEDICAL | | | | | | CENTER | | | | | | LABORATORY | | + + + + + + | HGB O2 SAT | 97.3 | 92.0 - 99.9 % | [facility] | | | | | | [facility] | | | | | | [facility] | | | | | | MEDICAL | | | | | | CENTER | | | | | | LABORATORY | | + + + + + + | Carboxyhemo | 1.5 | 1.0 - 3.0 % | [facility] | | | globin | | | [facility] | | | | | | HEART | | | | | | MEDICAL | | | | | | CENTER | | | | | | LABORATORY | | + + + + + + | Methemoglob | 1.0 | 0.4 - 1.5 % | [facility] | | | in, Venous | | | [facility] | | | | | | HEART | | | | | | MEDICAL | | | | | | CENTER | | | | | | LABORATORY | | + + + + + + | K | 5.5 (H) | 3.5 - 5.0 | [facility] | | | | | mmol/L | [facility] | | | | | | HE[facility] | | | | | | MEDICAL | | | | | | CENTER | | | | | | LABORATORY | | + + + + + + | Glucose, | 119 (H) | 65 - 99 mg/dL | [facility] | | | POC | | | [facility] | | | | | | HE[facility] | | | | | | MEDICAL | | | | | | CENTER | | | | | | LABORATORY | | + + + + + + + + | Specimen | + + | | + + + + + + + | Performing | Address | City/State/Zipcode | Phone Number | | Organization | | | | + + + + + | [facility] | [address] | [place] [address] | | | [facility] | | | | | LABORATORY | | | | + + + + + Lactic Acid, Arterial, Surgery (11/01/2016 10:51 AM PDT) + +-------+ + + + | Component | Value | Ref Range | Performed | Pathologist | | | | | At | Signature | + +-------+ + + + | Lactate, | 0.6 | 0.5 - 1.6 | [facility] | | | Arterial | | mmol/L | [facility] | | | | | | HEART | | | | | | MEDICAL | | | | | | CENTER | | | | | | LABORATORY | | + +-------+ + + + + + | Specimen | + + | | + + + + + + + | Performing | Address | City/State/Zipcode | Phone Number | | Organization | | | | + + + + + | [facility] | [address] | [place] [address] | | | [facility] | | | | | LABORATORY | | | | + + + + + Calcium, Ionized, Surgery (11/01/2016 10:51 AM PDT) + + + + + + | Component | Value | Ref Range | Performed | Pathologist | | | | | At | Signature | + + + + + + | Calcium, | 3.63 (L) | 4.75 - 5.30 | [facility] | | | Ionized | | mg/dL | [facility] | | | | | | HEART | | | | | | MEDICAL | | | | | | CENTER | | | | | | LABORATORY | | + + + + + + | Calcium, pH | 3.63 (L) | 4.75 - 5.30 | [facility] | | | Normalized | | mg/dL | [facility] | | | | | | HEART | | | | | | MEDICAL | | | | | | CENTER | | | | | | LABORATORY | | + + + + + + + + | Specimen | + + | | + + + + + + + | Performing | Address | City/State/Zipcode | Phone Number | | Organization | | | | + + + + + | [facility] | [address] | [place] [address] | | | [facility] | | | | | LABORATORY | | | | + + + + + Blood Gas Profile AGB, VBG, Potassium and Glucose, Surgery (11/01/2016 10:51 AM PDT) + + + + + + | Component | Value | Ref Range | Performed | Pathologist | | | | | At | Signature | + + + + + + | pH, | 7.40 | 7.37 - 7.47 | [facility] | | | Arterial | Comment: | | [facility] | | | | Results delivered to: | | HEART | | | | [facility] | | MEDICAL | | | | | | CENTER | | | | | | LABORATORY | | + + + + + + | pCO2, | 44 (H) | 32 - 43 mm Hg | [facility] | | | Arterial | | | [facility] | | | | | | HEART | | | | | | MEDICAL | | | | | | CENTER | | | | | | LABORATORY | | + + + + + + | pO2, | 226 | mm Hg | [facility] | | | Arterial | | | [facility] | | | | | | HEART | | | | | | MEDICAL | | | | | | CENTER | | | | | | LABORATORY | | + + + + + + | Base | N/A | 0.0 - 2.5 | [facility] | | | deficit | | mmol/L | [facility] | | | | | | HEART | | | | | | MEDICAL | | | | | | CENTER | | | | | | LABORATORY | | + + + + + + | Base | 2.4 | 0.0 - 2.5 | [facility] | | | Excess, | | mmol/L | [facility] | | | Arterial | | | HEART | | | | | | MEDICAL | | | | | | CENTER | | | | | | LABORATORY | | + + + + + + | HCO3, | 26.7 | 23.0 - 28.0 | [facility] | | | Arterial | | mmol/L | [facility] | | | | | | HEART | | | | | | MEDICAL | | | | | | CENTER | | | | | | LABORATORY | | + + + + + + | Oxygen | 13.0 (L) | 15 - 23 Vol % | [facility] | | | Content, | | | [facility] | | | Arterial | | | HEART | | | | | | MEDICAL | | | | | | CENTER | | | | | | LABORATORY | | + + + + + + | Hgb, Blood | 9.0 (L) | 11.3 - 15.5 | [facility] | | | Gas | | g/dL | [facility] | | | | | | HEART | | | | | | MEDICAL | | | | | | CENTER | | | | | | LABORATORY | | + + + + + + | HGB O2 SAT | 97.9 | 92.0 - 99.9 % | [facility] | | | | | | [facility] | | | | | | HE[facility] | | | | | | MEDICAL | | | | | | CENTER | | | | | | LABORATORY | | + + + + + + | Carboxyhemo | 1.0 | 1.0 - 3.0 % | [facility] | | | globin | | | [facility] | | | | | | HEART | | | | | | MEDICAL | | | | | | CENTER | | | | | | LABORATORY | | + + + + + + | Methemoglob | 0.9 | 0.4 - 1.5 % | [facility] | | | in, Venous | | | [facility] | | | | | | HEART | | | | | | MEDICAL | | | | | | CENTER | | | | | | LABORATORY | | + + + + + + | pH, Venous | 7.33 | 7.31 - 7.41 | [facility] | | | | | | [facility] | | | | | | [facility] | | | | | | MEDICAL | | | | | | CENTER | | | | | | LABORATORY | | + + + + + + | pCO2, | 55 (H) | 41 - 51 mm Hg | [facility] | | | Venous | | | [facility] | | | | | | HEART | | | | | | MEDICAL | | | | | | CENTER | | | | | | LABORATORY | | + + + + + + | pO2, Venous | 47 (H) | 37 - 43 mm Hg | [facility] | | | | | | [facility] | | | | | | HE[facility] | | | | | | MEDICAL | | | | | | CENTER | | | | | | LABORATORY | | + + + + + + | O2HB SELVIN | 80.1 | % | [facility] | | | | | | [facility] | | | | | | HE[facility] | | | | | | MEDICAL | | | | | | CENTER | | | | | | LABORATORY | | + + + + + + | K | 4.1 | 3.5 - 5.0 | [facility] | | | | | mmol/L | [facility] | | | | | | HEART | | | | | | MEDICAL | | | | | | CENTER | | | | | | LABORATORY | | + + + + + + | Glucose, | 94 | 65 - 99 mg/dL | [facility] | | | POC | | | [facility] | | | | | | HEART | | | | | | MEDICAL | | | | | | CENTER | | | | | | LABORATORY | | + + + + + + + + | Specimen | + + | | + + + + + + + | Performing | Address | City/State/Zipcode | Phone Number | | Organization | | | | + + + + + | [facility] | [address] | [place] [address] | | | [facility] | | | | | LABORATORY | | | | + + + + + XR Chest PA or AP (11/01/2016 8:42 AM PDT) + + | Specimen | + + | | + + + + + | Narrative | Performed At | + + + | FLUOROSCOPIC ASSISTED CENTRAL LINE CLINICAL INFORMATION: | [facility] | | Intraoperative fluoroscopic assisted central line placement. | | | FINDINGS: 1 minute 37 seconds of fluoroscopy was utilized by | | | Eze during operative procedure. Single image showing left | | | jugular venous access and [place] catheter and to the area of | | | segmental right lower lobe arteries. Total number of images: 1. | | | IMPRESSION: Fluoroscopic assisted right jugular venous access with | | | [place] catheter. Signed by: Fredy Miranda | | + + + + + | Procedure Note | + + | Zoltan Macedo In - 11/01/2016 10:30 AM PDT | | | | FLUOROSCOPIC ASSISTED CENTRAL LINE | | | | CLINICAL INFORMATION: | | Intraoperative fluoroscopic assisted central line placement. | | | | FINDINGS: | | 1 minute 37 seconds of fluoroscopy was utilized by Dr. Loo | | during operative procedure. | | | | Single image showing left jugular venous access and [place] | | catheter and to the area of segmental right lower lobe arteries. | | | | Total number of images: 1. | | | | IMPRESSION: | | Fluoroscopic assisted right jugular venous access with [place] | | catheter. | | | | | | | | | | Signed by: Fredy Miranda | + + + +---------+ + + | Performing | Address | City/State/Zipcode | Phone Number | | Organization | | | | + +---------+ + + | [facility] | | | | + +---------+ + + Lactic Acid, Arterial, Surgery (11/01/2016 7:52 AM PDT) + +-------+ + + + | Component | Value | Ref Range | Performed | Pathologist | | | | | At | Signature | + +-------+ + + + | Lactate, | 0.6 | 0.5 - 1.6 | [facility] | | | Arterial | | mmol/L | [facility] | | | | | | HEART | | | | | | MEDICAL | | | | | | CENTER | | | | | | LABORATORY | | + +-------+ + + + + + | Specimen | + + | | + + + + + + + | Performing | Address | City/State/Zipcode | Phone Number | | Organization | | | | + + + + + | [facility] | [address] | [place] [address] | | | [facility] | | | | | LABORATORY | | | | + + + + + Blood Gas , Arterial, Surgery (11/01/2016 7:52 AM PDT) + + + + + + | Component | Value | Ref Range | Performed | Pathologist | | | | | At | Signature | + + + + + + | pH, | 7.43 | 7.37 - 7.47 | [facility] | | | Arterial | Comment: | | [facility] | | | | Results delivered to: | | HEART | | | | DR [address] | | MEDICAL | | | | | | CENTER | | | | | | LABORATORY | | + + + + + + | pCO2, | 41 | 32 - 43 mm Hg | [facility] | | | Arterial | | | [facility] | | | | | | HEART | | | | | | MEDICAL | | | | | | CENTER | | | | | | LABORATORY | | + + + + + + | pO2, | 360 | mm Hg | [facility] | | | Arterial | | | [facility] | | | | | | HEART | | | | | | MEDICAL | | | | | | CENTER | | | | | | LABORATORY | | + + + + + + | Base | N/A | 0.0 - 2.5 | [facility] | | | deficit | | mmol/L | [facility] | | | | | | HEART | | | | | | MEDICAL | | | | | | CENTER | | | | | | LABORATORY | | + + + + + + | Base | 2.5 | 0.0 - 2.5 | [facility] | | | Excess, | | mmol/L | [facility] | | | Arterial | | | HEART | | | | | | MEDICAL | | | | | | CENTER | | | | | | LABORATORY | | + + + + + + | HCO3, | 26.5 | 23.0 - 28.0 | [facility] | | | Arterial | | mmol/L | [facility] | | | | | | HEART | | | | | | MEDICAL | | | | | | CENTER | | | | | | LABORATORY | | + + + + + + | Oxygen | 19.2 | 15 - 23 Vol % | [facility] | | | Content, | | | [facility] | | | Arterial | | | HEART | | | | | | MEDICAL | | | | | | CENTER | | | | | | LABORATORY | | + + + + + + | Hgb, Blood | 13.3 | 11.3 - 15.5 | [facility] | | | Gas | | g/dL | [facility] | | | | | | HEART | | | | | | MEDICAL | | | | | | CENTER | | | | | | LABORATORY | | + + + + + + | HGB O2 SAT | 98.0 | 92.0 - 99.9 % | [facility] | | | | | | [facility] | | | | | | HEART | | | | | | MEDICAL | | | | | | CENTER | | | | | | LABORATORY | | + + + + + + | Carboxyhemo | 1.1 | 1.0 - 3.0 % | [facility] | | | globin | | | [facility] | | | | | | HEART | | | | | | MEDICAL | | | | | | CENTER | | | | | | LABORATORY | | + + + + + + | Methemoglob | 0.8 | 0.4 - 1.5 % | [facility] | | | in, Venous | | | [facility] | | | | | | HEART | | | | | | MEDICAL | | | | | | CENTER | | | | | | LABORATORY | | + + + + + + | Calcium, | 4.78 | 4.75 - 5.30 | [facility] | | | Ionized | | mg/dL | [facility] | | | | | | HEART | | | | | | MEDICAL | | | | | | CENTER | | | | | | LABORATORY | | + + + + + + | Calcium, pH | 4.85 | 4.75 - 5.30 | [facility] | | | Normalized | | mg/dL | [facility] | | | | | | HEART | | | | | | MEDICAL | | | | | | CENTER | | | | | | LABORATORY | | + + + + + + | Glucose, | 108 (H) | 65 - 99 mg/dL | [facility] | | | POC | | | [facility] | | | | | | HEART | | | | | | MEDICAL | | | | | | CENTER | | | | | | LABORATORY | | + + + + + + | K | 3.6 | 3.5 - 5.0 | [facility] | | | | | mmol/L | [facility] | | | | | | HEART | | | | | | MEDICAL | | | | | | CENTER | | | | | | LABORATORY | | + + + + + + | Na | 135 | 135 - 145 | [facility] | | | | | mmol/L | [facility] | [facility] | [facility] | | | | | | [facility] | | | | | | [facility]ENTER | | | | | | LABORATORY | | + + + + + + + + | Specimen | + + | | + + + + + + + | Performing | Address | City/State/Zipcode | Phone Number | | Organization | | | | + + + + + | [facility] | [address] | [place] [address] | | | [facility] | | | | | LABORATORY | | | | + + + + + POC Glucose (11/01/2016 6:30 AM PDT) + +-------+ + + + | Component | Value | Ref Range | Performed | Pathologist | | | | | At | Signature | + +-------+ + + + | Glucose, | 97 | 65 - 99 mg/dL | [facility] | | | | | [facility] | | | | | | [facility]ENTER | | | | | | LABORATORY | | + +-------+ + + + + + | Specimen | + + | | + + + + + + + | Performing | Address | City/State/Zipcode | Phone Number | | Organization | | | | + + + + + | [facility] | [address] | [place] [address] | | | [facility] | | | | | LABORATORY | | | | + + + + + LVEF VALUE (11/01/2016) + +-------+ + + + | Component | Value | Ref Range | Performed | Pathologist | | | | | At | Signature | + +-------+ + + + | LVEF-ORA | 67 | | | | | TRANSESOPHA | | | | | | GEAL ECHO | | | | | + +-------+ + + + XR Chest PA and Lateral (10/31/2016 4:39 PM PDT) + + | Specimen | + + | | + + + + + | Narrative | Performed At | + + + | CHEST TWO VIEWS CLINICAL INFORMATION: Preoperative for a | [facility] | | coronary artery bypass graft to be done on 11/01/16. COMPARISON: | | | No comparisons FINDINGS: Heart, lungs and vessels normal. No | | | pneumothorax, pleural effusion or adenopathy. No significant bone | | | abnormality. IMPRESSION: Negative chest. Signed by: | | | Tino Sommers | | + + + + + | Procedure Note | + + | Zoltan Macedo Results In 10/31/2016 5:13 PM PDT | | | | CHEST TWO VIEWS | | | | CLINICAL INFORMATION: | | Preoperative for a coronary artery bypass graft to be done on | | 11/01/16. | | | | COMPARISON: | | No comparisons | | | | FINDINGS: | | Heart, lungs and vessels normal. No pneumothorax, pleural effusion or | | adenopathy. No significant bone abnormality. | | | | IMPRESSION: | | Negative chest. | | | | | | | | Signed by: Tino Sommers | + + + +---------+ + + | Performing | Address | City/State/Zipcode | Phone Number | | Organization | | | | + +---------+ + + | [facility] | | | | + +---------+ + + Urinalysis with Microscopic with Culture if Indicated (10/31/2016 4:17 PM PDT) + + + + + + | Component | Value | Ref Range | Performed | Pathologist | | | | | At | Signature | + + + + + + | Color | Light Yellow | | [facility] | | | | | | [facility] | | | | | | [facility]ENTER | | | | | | LABORATORY | | + + + + + + | Clarity | Clear | | [facility] | | | | | | [facility] | | | | | | [facility] | | | | | | LABORATORY | | + + + + + + | Glucose, | Negative | Negative mg/dL | [facility] | | | Urine | | | [facility] | [facility] | | [facility] | | | | | | [facility] | | | | | | [facility]ENTER | | | | | | LABORATORY | | + + + + + + | Bilirubin, | Negative | Negative | [facility] | | | Urine | | | [facility] | | | | | [facility] | | | | | | [facility] | | | | | | CENTER | | | | | | LABORATORY | | + + + + + + | Ketones, | Negative | Negative mg/dL | [facility] | | | Urine | | | [facility] | [facility] | | [facility] | | | | | | [facility] | | | | | | CENTER | | | | | | LABORATORY | | + + + + + + | Specific | 1.010 | 1.001 - 1.030 | [facility] | | | [place] | | | [facility] | | | | | [facility] | | | | | | [facility] | | | | | | [facility]ENTER | | | | | | LABORATORY | | + + + + + + | pH, Urine | 6.0 | 5.0 - 7.5 | [facility] | | | | | [facility] | [facility] | | | | | | [facility] | | | | | | [facility] | | | | | | LABORATORY | | + + + + + + | Protein, | Negative | Negative mg/dL | [facility] | | | Urine | | | [facility] | | | | | | [facility] | | | | | | MEDICAL | | | | | | CENTER | | | | | | LABORATORY | | + + + + + + | Urobilinoge | <2.0 | <2.0 mg/dL | [facility] | | | n, Urine | | | [facility] | | | | | [facility] | | | | | | MED[facility] | | | | | | CENTER | | | | | | LABORATORY | | + + + + + + | Nitrite, | Negative | Negative | [facility] | | | Urine | | | [facility] | | | | | [facility] | | | | | | [facility]ICAL | | | | | | [facility]ENTER | | | | | | LABORATORY | | + + + + + + | Blood, | Negative | Negative | [facility] | | | Urine | | | [facility] | | | | | | [facility] | | | | | | MEDICAL | | | | | | CENTER | | | | | | LABORATORY | | + + + + + + | Leukocyte | Negative | Negative | [facility] | | | Esterase, | | | [facility] | | | Urine | | | HEART | | | | | | MEDICAL | | | | | | CENTER | | | | | | LABORATORY | | + + + + + + | WBC UA | <1 | <6 /hpf | [facility] | | | | | | [facility] | | | | | | [facility] | | | | | | [facility] | | | | | | CENTER | | | | | | LABORATORY | | + + + + + + | RBC UA | 1 | <6 /hpf | [facility] | | | | | | [facility] | | | | | [facility] | | | | | | [facility] | | | | | | [facility]ENTER | | | | | | LABORATORY | | + + + + + + | BACTERIA UA | None seen | /hpf | [facility] | | | | | | [facility] | | | | | [facility] | | | | | | MEDICAL | | | | | | CENTER | | | | | | LABORATORY | | + + + + + + | SQUAMOUS | Not clinically | /lpf | [facility] | | | EPITHELIAL | significant.Comment: | | [facility] | | | UA | Healthy individuals show | | HEART | | | | up to FEW squamous | | MEDICAL | | | | epithelial cells in the | | CENTER | | | | urine, depending on | | LABORATORY | | | | collection method. | | | | + + + + + + | Culture | Culture not indicated | Culture not | [facility] | | | Indicated | | indicated | [facility] | | | | | | [facility] | | | | | | MEDICAL | | | | | | CENTER | | | | | | LABORATORY | | + + + + + + + + | Specimen | + + | Urine - Urine | | specimen obtained by | | clean catch | | procedure (specimen) | + + + + + + + | Performing | Address | City/State/Zipcode | Phone Number | | Organization | | | | + + + + + | [facility] | [address] | [place] [address] | | | [facility] | | | | | LABORATORY | | | | + + + + + Type and Screen (10/31/2016 4:09 PM PDT) + + + + + + | Component | Value | Ref Range | Performed | Pathologist | | | | | At | Signature | + + + + + + | ABO | O | | [facility] | | | | | | [facility] | | | | | | [facility] | | | | | | [facility] | | | | | | [facility] | | | | | | [facility] | | + + + + + + | Rh Type | Positive | | [facility] | | | | | | [facility] | | | [facility] | | | | [facility] | | | | | | [facility] | | | | | | [facility] | | + + + + + + | Antibody | NegativeComment: Patient | | [facility] | | | Screen | is remote crossmatch | | [facility] | | | | eligible | | [facility] | | | | | | [facility] | | | | | | [facility] | | | | | | CENTER | | + + + + + + + + | Specimen | + + | Blood | + + + + + | Narrative | Performed At | + + + | Specimen Expiration Date: [id number] | [facility] | | | [facility] | | | [facility] | | | [facility] | + + + + + + + + | Performing | Address | City/State/Zipcode | Phone Number | | Organization | | | | + + + + + | [facility] | [address] | [place] [address] | [phone] | | [facility] | | | | | [facility] | | | | | [facility] | | | | + + + + + PTT (10/31/2016 4:09 PM PDT) + + + + + + | Component | Value | Ref Range | Performed | Pathologist | | | | | At | Signature | + + + + + + | aPTT, | 28Comment: Deep venous | 26 - 36 sec | [facility] | | | Patient | thrombosis or pulmonary | | [facility] | | | | embolism therapeutic | | HEART | | | | heparin levels of 0.3 to | | MEDICAL | | | | 0.7 Units/mL anti | | CENTER | | | | FactorXa levels usually | | LABORATORY | | | | correspond to an aPTT of | | | | | | 65 to 99 seconds. Acute | | | | | | cardiac syndrom | | | | | | therapeutic range based | | | | | | on heparin levels of 0.2 | | | | | | to 0.5 usually | | | | | | correspond to an aPTT of | | | | | | 57 to 76 | | | | | | seconds.Pediatric | | | | | | guidelines suggested | | | | | | heparin levels of 0.35 | | | | | | to 0.7 usually | | | | | | correspond to an aPTT of | | | | | | 69 to 99 seconds. | | | | + + + + + + | aPTT, Pop | 31 | sec | [facility] | | | Mean | | | [facility] | | | | | | HEART | | | | | | MEDICAL | | | | | | CENTER | | | | | | LABORATORY | | + + + + + + + + | Specimen | + + | Blood | + + + + + + + | Performing | Address | City/State/Zipcode | Phone Number | | Organization | | | | + + + + + | [facility] | [address] | [place] [address] | | | [facility] | | | | | LABORATORY | | | | + + + + + Protime INR (10/31/2016 4:09 PM PDT) + + + + + + | Component | Value | Ref Range | Performed | Pathologist | | | | | At | Signature | + + + + + + | Prothrombin | 12.6 | 12.0 - 14.2 sec | [facility] | | | Time | | | [facility] | | | | | | HEART | | | | | | MEDICAL | | | | | | CENTER | | | | | | LABORATORY | | + + + + + + | INR | 1.0Comment: Usual oral | 0.9 - 1.1 | [facility] | | | | anticoagulant range: 2.0 | | [facility] | | | | to 3.0 High level | | HEART | | | | oral anticoagulant | | MEDICAL | | | | range: 2.5 to 3.5 | | CENTER | | | | | | LABORATORY | | + + + + + + + + | Specimen | + + | Blood | + + + + + + + | Performing | Address | City/State/Zipcode | Phone Number | | Organization | | | | + + + + + | [facility] | [address] | [place] [address] | | | [facility] | | | | | LABORATORY | | | | + + + + + Hemoglobin A1C (10/31/2016 4:09 PM PDT) + + + + + + | Component | Value | Ref Range | Performed | Pathologist | | | | | At | Signature | + + + + + + | Hemoglobin | 5.4Comment: The Wallisian | 4.3 - 6.1 % | [facility] | | | A1c | Diabetes Association | | [facility] | | | | considers a result of < | | HEART | | | | 7.0% to be the goal of | | MEDICAL | | | | diabetic therapy. | | CENTER | | | | | | LABORATORY | | + + + + + + | Estimated | 108Comment: The ADA | mg/dL | [facility] | | | Average | recommends an Estimated | | [facility] | | | Glucose | Average Glucose (eAG) | | HEART | | | | result of LT 154 mg/dL | | MEDICAL | | | | to be the goal of | | CENTER | | | | diabetic therapy. | | LABORATORY | | | | Estimated Average | | | | | | Glucose is calculated | | | | | | from the Hgb A1c by use | | | | | | of the ADA recommended | | | | | | formula. | | | | + + + + + + + + | Specimen | + + | Blood | + + + + + + + | Performing | Address | City/State/Zipcode | Phone Number | | Organization | | | | + + + + + | [facility] | [address] | [place] [address] | | | [facility] | | | | | LABORATORY | | | | + + + + + CBC with Differential (10/31/2016 4:09 PM PDT) + + + + + + | Component | Value | Ref Range | Performed | Pathologist | | | | | At | Signature | + + + + + + | WBC | 11.4 (H) | 3.8 - 11.0 K/uL | [facility] | | | | | | [facility] | | | | | | HEART | | | | | | MEDICAL | | | | | | CENTER | | | | | | LABORATORY | | + + + + + + | RBC | 4.30 | 3.70 - 5.10 | [facility] | | | | | M/uL | [facility] | | | | | | HEART | | | | | | MEDICAL | | | | | | CENTER | | | | | | LABORATORY | | + + + + + + | Hemoglobin | 14.7 | 11.3 - 15.5 | [facility] | | | | | g/dL | [facility] | | | | | | HEART | | | | | | MEDICAL | | | | | | CENTER | | | | | | LABORATORY | | + + + + + + | Hematocrit | 43.1 | 34.0 - 46.0 % | [facility] | | | | | | [facility] | | | | | | HE[facility] | | | | | | MEDICAL | | | | | | CENTER | | | | | | LABORATORY | | + + + + + + | MCV | 100.2 (H) | 80.0 - 100.0 fL | [facility] | | | | | | [facility] | | | | | | HE[facility] | | | | | | MEDICAL | | | | | | CENTER | | | | | | LABORATORY | | + + + + + + | MCH | 34.2 (H) | 27.0 - 34.0 pg | [facility] | | | | | | [facility] | | | | | | HEART | | | | | | MEDICAL | | | | | | CENTER | | | | | | LABORATORY | | + + + + + + | MCHC | 34.2 | 32.0 - 35.5 | [facility] | | | | | g/dL | [facility] | | | | | | HEART | | | | | | MEDICAL | | | | | | CENTER | | | | | | LABORATORY | | + + + + + + | RDW-CV | 13.0 | 11.0 - 15.5 % | [facility] | | | | | | [facility] | | | | | | HEART | | | | | | MEDICAL | | | | | | CENTER | | | | | | LABORATORY | | + + + + + + | Platelet | 380 | 150 - 400 K/uL | [facility] | | | Count | | | [facility] | | | | | | HEART | | | | | | MEDICAL | | | | | | CENTER | | | | | | LABORATORY | | + + + + + + | Differentia | Automated | | [facility] | | | l Type | | | [facility] | | | | | | HEART | | | | | | MEDICAL | | | | | | CENTER | | | | | | LABORATORY | | + + + + + + | % | 75.5 (H) | 40.0 - 75.0 % | [facility] | | | Neutrophils | | | [facility] | | | | | | HEART | | | | | | MEDICAL | | | | | | CENTER | | | | | | LABORATORY | | + + + + + + | % | 16.1 | 15.0 - 48.0 % | [facility] | | | Lymphocytes | | | [facility] | | | | | | HEART | | | | | | MEDICAL | | | | | | CENTER | | | | | | LABORATORY | | + + + + + + | % Monocytes | 6.4 | 0.0 - 12.0 % | [facility] | | | | | | [facility] | | | | | | HEART | | | | | | MEDICAL | | | | | | CENTER | | | | | | LABORATORY | | + + + + + + | % | 1.5 | 0.0 - 7.0 % | [facility] | | | Eosinophils | | | [facility] | | | | | | HEART | | | | | | MEDICAL | | | | | | CENTER | | | | | | LABORATORY | | + + + + + + | % Basophils | 0.5 | 0.0 - 2.0 % | [facility] | | | | | | [facility] | | | | | | HEART | | | | | | MEDICAL | | | | | | CENTER | | | | | | LABORATORY | | + + + + + + | Absolute | 8.60 (H) | 1.90 - 7.40 | [facility] | | | Neutrophils | | K/uL | [facility] | | | | | | HEART | | | | | | MEDICAL | | | | | | CENTER | | | | | | LABORATORY | | + + + + + + | Absolute | 1.80 | 1.00 - 3.90 | [facility] | | | Lymphocytes | | K/uL | [facility] | | | | | | HEART | | | | | | MEDICAL | | | | | | CENTER | | | | | | LABORATORY | | + + + + + + | Absolute | 0.70 | 0.00 - 0.80 | [facility] | | | Monocytes | | K/uL | [facility] | | | | | | HEART | | | | | | MEDICAL | | | | | | CENTER | | | | | | LABORATORY | | + + + + + + | Absolute | 0.20 | 0.00 - 0.50 | [facility] | | | Eosinophils | | K/uL | [facility] | | | | | | HEART | | | | | | MEDICAL | | | | | | CENTER | | | | | | LABORATORY | | + + + + + + | Absolute | 0.10 | 0.00 - 0.10 | [facility] | | | Basophils | | K/uL | [facility] | | | | | | HEART | | | | | | MEDICAL | | | | | | CENTER | | | | | | LABORATORY | | + + + + + + + + | Specimen | + + | Blood | + + + + + + + | Performing | Address | City/State/Zipcode | Phone Number | | Organization | | | | + + + + + | [facility] | [address] | [place] [address] | | | [facility] | | | | | LABORATORY | | | | + + + + + Basic Metabolic Panel (10/31/2016 4:09 PM PDT) + + + + + + | Component | Value | Ref Range | Performed | Pathologist | | | | | At | Signature | + + + + + + | Na | 133 (L) | 135 - 145 | [facility] | | | | | mmol/L | [facility] | | | | | | HEART | | | | | | MEDICAL | | | | | | CENTER | | | | | | LABORATORY | | + + + + + + | K | 3.9 | 3.5 - 5.0 | [facility] | | | | | mmol/L | [facility] | | | | | | HEART | | | | | | MEDICAL | | | | | | CENTER | | | | | | LABORATORY | | + + + + + + | Cl | 96 (L) | 99 - 109 mmol/L | [facility] | | | | | | [facility] | | | | | | HEART | | | | | | MEDICAL | | | | | | CENTER | | | | | | LABORATORY | | + + + + + + | CO2 | 29 (H) | 21 - 28 mmol/L | [facility] | | | | | | [facility] | | | | | | HEART | | | | | | MEDICAL | | | | | | CENTER | | | | | | LABORATORY | | + + + + + + | Glucose | 93Comment: Wallis[place] | 65 - 99 mg/dL | [facility] | | | | Diabetes Association | | [facility] | | | | diagnostic categories | | HEART | | | | for non adults: | | MEDICAL | | | | Impaired fasting | | CENTER | | | | glucose 100 to 125 | | LABORATORY | | | | mg/dL. A fasting | | | | | | glucose result of 126 | | | | | | mg/dL or greater | | | | | | indicates diabetes if | | | | | | the abnormality is | | | | | | confirmed on a | | | | | | subsequent day. A | | | | | | random glucose result of | | | | | | greater than 200 mg/dL | | | | | | indicates diabetes if | | | | | | the abnormality is | | | | | | confirmed on a | | | | | | subsequent day. | | | | + + + + + + | BUN | 14 | 8 - 25 mg/dL | [facility] | | | | | | [facility] | | | | | | HEART | | | | | | MEDICAL | | | | | | CENTER | | | | | | LABORATORY | | + + + + + + | Creatinine | 0.77Comment: IDMS | 0.50 - 1.00 | [facility] | | | | traceable creatinine | mg/dL | [facility] | | | | | | HEART | | | | | | MEDICAL | | | | | | CENTER | | | | | | LABORATORY | | + + + + + + | Calcium | 9.9 | 8.5 - 10.2 | [facility] | | | | | mg/dL | [facility] | | | | | | HEART | | | | | | MEDICAL | | | | | | CENTER | | | | | | LABORATORY | | + + + + + + | Anion Gap | 8 | 5 - 16 mmol/L | [facility] | | | | | | [facility] | | | | | | HEART | | | | | | MEDICAL | | | | | | CENTER | | | | | | LABORATORY | | + + + + + + | Estimated | >60Comment: GFR <60: | >60 | [facility] | | | GFR | Chronic kidney disease, | ml/min/1.73m2 | [facility] | | | | if found over a 3 month | | HEART | | | | period.GFR <15: Kidney | | MEDICAL | | | | failure.For | | CENTER | | | | Americans, multiply the | | LABORATORY | | | | calculated GFR by 1.210 | | | | + + + + + + + + | Specimen | + + | Blood | + + + + + + + | Performing | Address | City/State/Zipcode | Phone Number | | Organization | | | | + + + + + | [facility] | [address] | [place] [address] | | | [facility] | | | | | LABORATORY | | | | + + + + + ECG 12 lead (10/31/2016 3:31 PM PDT) + + | Specimen | + + | | + + + + + | Narrative | Performed At | + + + | HEART RATE:55 | [facility] | | bpmRR Interval:1091 msAtrial Rate:55 msP-R Interval:140 msP | [facility] | | Duration:148 msP Horizontal Mohawk:24 degP Front [place]awk:69 degQ Onset:512 | | | msQRSD Interval:84 msQT Interval:424 msQTcB:406 msQTcF:412 msQRS | | | Horizontal [place]awk:4 degQRS [place]awk:36 degI-40 Horizontal [place]awk: degI-40 | | | Front [place]:30 degT-40 Horizontal [place]awk:-7 degT-40 Front [place]awk:36 degT | | | Horizontal [place]:60 degT Wave [place]awk:61 degS-T Horizontal [place]awk:108 degS-T | | | Front [place]:89 degSeverity:- ABNORMAL ECG -INTERP:SINUS | | | RHYTHMINTERP:CONSIDER LEFT VENTRICULAR HYPERTROPHYElectronically | | | signed by: Ramin PEREZ 11-01-2016 06:15:12 | | |QTcB:406 ms | | |QTcF:412 ms | | |QRS Horizontal Mohawk:4 deg | | |QRS Mohawk:36 deg | | |I-40 Horizontal [place]awk: deg | | |I-40 Front [place]awk:30 deg | | |T-40 Horizontal [place]awk:-7 deg | | |T-40 Front [place]:36 deg | | |T Horizontal [place]awk:60 deg | | |T Wave [place]awk:61 deg | | |S-T Horizontal [place]awk:108 deg | | |S-T Front [place]awk:89 deg | | |Severity:- ABNORMAL ECG - | | |INTERP:SINUS RHYTHM | | |INTERP:CONSIDER LEFT VENTRICULAR HYPERTROPHY | | |Electronically signed by: Ramin PEREZ 11-01-2016 06:15:12 | | + + + + + + + + | Performing | Address | City/State/Zipcode | Phone Number | | Organization | | | | + + + + + | [facility] | [address] | [place] [address] | [phone] | + + + + + MRSA NAAT (10/31/2016 3:20 PM PDT) + + + + + + | Component | Value | Ref Range | Performed | Pathologist | | | | | At | Signature | + + + + + + | Specimen | Nasal | | [facility] | | | Source | | | [facility] | | | | | | HEART | | | | | | MEDICAL | | | | | | CENTER | | | | | | LABORATORY | | + + + + + + | MRSA BY | Negative | Negative | [facility] | | | PCR. | | | [facility] | | | | | | HEART | | | | | | MEDICAL | | | | | | CENTER | | | | | | LABORATORY | | + + + + + + + + | Specimen | + + | Respiratory - | | Nasal/Nose | + + + + + + + | Performing | Address | City/State/Zipcode | Phone Number | | Organization | | | | + + + + + | [facility] | [address] | [place] [address] | | | [facility] | | | | | LABORATORY | | | | + + + + + documented in this encounter Visit Diagnoses + + | Diagnosis | + + | Coronary atherosclerosis of unspecified type of vessel, stebbins or graft | + + documented in this encounter Administered Medications + +--------+ +--------+------+------+ | Medication Order | MAR | Action | Dose | Rate | Site | | | Action | Date | | | | + +--------+ +--------+------+------+ | acetaminophen (TYLENOL) tablet | Given | 11/07/19 | 650 mg | | | | 650 mg 650 mg, Oral, EVERY 4 | | 17 6:25 | | | | | HOURS PRN, Pain, Fever, Starting | | AM PDT | | | | | 11/01/16 at 1414 | | | | | | + +--------+ +--------+------+------+ +-------+ +--------+---+---+ | Given | 11/06/19 | 650 mg | | | | | 17 4:23 | | | | | | PM PDT | | | | +-------+ +--------+---+---+ | Given | 11/06/19 | 650 mg | | | | | 17 6:58 | | | | | | AM PDT | | | | +-------+ +--------+---+---+ +---+---+ | | | +---+---+ + +---------+ +--------+-------+---+ | albumin 5% IVPB 12.5 g 12.5 g, | New Bag | 11/03/19 | 12.5 g | 250 | | | Intravenous, Administer over 1 | | 17 6:26 | | mL/hr | | | Hours, PRN, see PRN parameter, | | AM PDT | | | | | Starting Fri11/01/16 at 1414, | | | | | | | Give PRN SBP Less than: 90 | | | | | | + +---------+ +--------+-------+---+ +---------+ +--------+-------+---+ | New Bag | 11/02/19 | 12.5 g | 250 | | | | 17 7:53 | | mL/hr | | | | PM PDT | | | | +---------+ +--------+-------+---+ | New Bag | 11/02/19 | 12.5 g | 250 | | | | 17 5:57 | | mL/hr | | | | PM PDT | | | | +---------+ +--------+-------+---+ +---+---+ | | | +---+---+ + +-------+ +-------+---+---+ | amLODIPine (NORVASC) tablet 10 | Given | 11/07/19 | 10 mg | | | | mg 10 mg, Oral, DAILY, First | | 17 8:17 | | | | | dose (after last modification) on | | AM PDT | | | | | 11/05/16 at 0900, Hold for | | | | | | | SBP <100, | | | | | | + +-------+ +-------+---+---+ +-------+ +-------+---+---+ | Given | 11/06/19 | 10 mg | | | | | 17 8:36 | | | | | | AM PDT | | | | +-------+ +-------+---+---+ +---+---+ | | | +---+---+ + +-------+ +--------+---+---+ | aspirin chewable tablet 162 mg | Given | 11/07/19 | 162 mg | | | | 162 mg, Oral, DAILY, First dose | | 17 8:18 | | | | | on Fri11/01/16 at 1430, Initiated | | AM PDT | | | | | within 6 hours of arrival in the | | | | | | | intensive care unit if aspirin | | | | | | | was not administered | | | | | | | preoperatively. If unable to take | | | | | | | po tablet - may give rectal | | | | | | | aspirin, if ordered., | | | | | | + +-------+ +--------+---+---+ +-------+ +--------+---+---+ | Given | 11/06/19 | 162 mg | | | | | 17 8:36 | | | | | | AM PDT | | | | +-------+ +--------+---+---+ | Given | 11/05/19 | 162 mg | | | | | 17 8:43 | | | | | | AM PDT | | | | +-------+ +--------+---+---+ +---+---+ | | | +---+---+ + +-------+ +-------+---+---+ | atorvaSTATin (LIPITOR) tablet | Given | 11/06/19 | 40 mg | | | | 40 mg 40 mg, Oral, NIGHTLY, | | 17 9:07 | | | | | First dose on Fri11/01/16 at 2100 | | PM PDT | | | | + +-------+ +-------+---+---+ +-------+ +-------+---+---+ | Given | 11/05/19 | 40 mg | | | | | 17 8:38 | | | | | | PM PDT | | | | +-------+ +-------+---+---+ | Given | 11/04/19 | 40 mg | | | | | 17 8:30 | | | | | | PM PDT | | | | +-------+ +-------+---+---+ +---+---+ | | | +---+---+ + +-------+ +--------+---+---+ | docusate sodium (COLACE) | Given | 11/07/19 | 100 mg | | | | capsule 100 mg 100 mg, Oral, 2 | | 17 8:18 | | | | | TIMES DAILY, First dose (after | | AM PDT | | | | | last modification) on Fri11/05/16 | | | | | | | at 0900, First line agent for | | | | | | | constipation, | | | | | | + +-------+ +--------+---+---+ +-------+ +--------+---+---+ | Given | 11/06/19 | 100 mg | | | | | 17 9:08 | | | | | | PM PDT | | | | +-------+ +--------+---+---+ | Given | 11/06/19 | 100 mg | | | | | 17 8:36 | | | | | | AM PDT | | | | +-------+ +--------+---+---+ +---+---+ | | | +---+---+ + +-------+ +-------+---+---+ | famotidine (PEPCID) tablet 20 | Given | 11/07/19 | 20 mg | | | | mg 20 mg, Oral, 2 TIMES DAILY, | | 17 8:20 | | | | | First dose on Fri11/01/16 at 1430 | | AM PDT | | | | + +-------+ +-------+---+---+ +-------+ +-------+---+---+ | Given | 11/06/19 | 20 mg | | | | | 17 9:08 | | | | | | PM PDT | | | | +-------+ +-------+---+---+ | Given | 11/06/19 | 20 mg | | | | | 17 8:36 | | | | | | AM PDT | | | | +-------+ +-------+---+---+ + +---+ | | | + +---+ | furosemide (LASIX) tablet 40 mg | | | 40 mg, Oral, DAILY, First dose | | | (after last modification) on Roxy | | | 11/07/16 at 0900, For 1 dose | | + +---+ | | | + +---+ + +-------+ +---------+---+ + | heparin 1,000 units/mL 3,000 | Given | 11/02/19 | 300 mLs | | Surgical | | Units in sodium chloride 0.9% | | 17 9:43 | | | Site | | (NS) 300 mL Optesia Mixture PRN, | | AM PDT | | | | | Starting 11/01/16 at 0943, | | | | | | | Intra-op | | | | | | + +-------+ +---------+---+ + +---+---+ | | | +---+---+ + +-------+ + +---+---+ | HYDROcodone-acetaminophen | Given | 11/07/19 | 1 tablet | | | | (NORCO) 5-325 mg per tablet 0.5-1 | | 17 1:00 | | | | | tablet 0.5-1 tablet, Oral, | | AM PDT | | | | | EVERY 4 HOURS PRN, Pain, Starting | | | | | | | 11/05/16 at 0759 | | | | | | + +-------+ + +---+---+ +-------+ + +---+---+ | Given | 11/06/19 | 1 tablet | | | | | 17 9:14 | | | | | | PM PDT | | | | +-------+ + +---+---+ | Given | 11/06/19 | 1 tablet | | | | | 17 11:36 | | | | | | AM PDT | | | | +-------+ + +---+---+ + +---+ | | | + +---+ | lactulose liquid 30 mL 30 mL, | | | Oral, DAILY PRN, Constipation, | | | Starting 11/05/16 at 0800 | | + +---+ | | | + +---+ + +-------+ +--------+---+---+ | levothyroxine (SYNTHROID, | Given | 11/07/19 | 50 mcg | | | | LEVOTHROID) tablet 50 mcg 50 | | 17 6:22 | | | | | mcg, Oral, 2 TIMES DAILY BEFORE | | AM PDT | | | | | MEALS, First dose on Fri11/01/16 | | | | | | | at 1630, Give before breakfast., | | | | | | + +-------+ +--------+---+---+ +-------+ +--------+---+---+ | Given | 11/06/19 | 50 mcg | | | | | 17 3:50 | | | | | | PM PDT | | | | +-------+ +--------+---+---+ | Given | 11/06/19 | 50 mcg | | | | | 17 6:47 | | | | | | AM PDT | | | | +-------+ +--------+---+---+ + +---+ | | | + +---+ | menthol (HALLS COUGH DROP) | | | lozenge 1 lozenge 1 lozenge, | | | Buccal, EVERY 2 HOURS PRN, Sore | | | Throat, Starting 11/02/16 at | | | 0100 | | + +---+ | | | + +---+ + +-------+ +-------+---+---+ | metoprolol tartrate (LOPRESSOR) | Given | 06/28/20 | 25 mg | | | | tablet 25 mg 25 mg, Oral, 2 | | 17 8:18 | | | | | TIMES DAILY, First dose on Fri | | AM PDT | | | | | 11/01/16 at 1430, Hold if SBP < | | | | | | | 100, or HR < 50, | | | | | | + +-------+ +-------+---+---+ +-------+ +-------+---+---+ | Given | 11/06/19 | 25 mg | | | | | 17 9:08 | | | | | | PM PDT | | | | +-------+ +-------+---+---+ | Given | 11/06/19 | 25 mg | | | | | 17 8:36 | | | | | | AM PDT | | | | +-------+ +-------+---+---+ +---+---+ | | | +---+---+ + + + +---------+---------+---+ | nitroglycerin in dextrose 100 | Rate/Dos | 11/03/19 | 5 | 3 mL/hr | | | mcg/mL infusion 0-400 mcg/min | e Verify | 17 4:00 | mcg/min | | | | (0-240 mL/hr), at 0-240 mL/hr, | | PM PDT | | | | | Intravenous, TITRATED, Starting | | | | | | | 11/01/16 at 1430, If NTG used | | | | | | | for VERDUZCO or radial, if systolic | | | | | | | blood pressure is less than 90, | | | | | | | please turn nitroglycerin off | | | | | | | first before starting pressors, | | | | | | | Initial dose: 5 mcg/min, Goal: | | | | | | | SBP less than 160 | | | | | | + + + +---------+---------+---+ + + +---------+---------+---+ | Rate/Dose Verify | 11/03/19 | 5 | 3 mL/hr | | | | 17 3:00 | mcg/min | | | | | PM PDT | | | | + + +---------+---------+---+ | Rate/Dose Verify | 11/03/19 | 5 | 3 mL/hr | | | | 17 1:00 | mcg/min | | | | | PM PDT | | | | + + +---------+---------+---+ +---+---+ | | | +---+---+ + +-------+ +------+---+---+ | ondansetron (ZOFRAN ODT) | Given | 11/06/19 | 4 mg | | | | disintegrating tablet 4 mg 4 mg, | | 17 9:14 | | | | | Oral, EVERY 6 HOURS PRN, Nausea, | | PM PDT | | | | | Vomiting, Starting 11/01/16 | | | | | | | at 1414, First line agent, | | | | | | + +-------+ +------+---+---+ +---+---+ | | | +---+---+ + +-------+ +------+---+---+ | ondansetron (ZOFRAN) injection | Given | 11/04/19 | 4 mg | | | | 4 mg 4 mg, Intravenous, EVERY | | 17 11:21 | | | | | HOURS PRN, Nausea, Vomiting, | | AM PDT | | | | | Starting Fri11/01/16 at 1414, | | | | | | | First line agent Use PO option | | | | | | | unless NPO status or unable to | | | | | | | tolerate, | | | | | | + +-------+ +------+---+---+ +-------+ +------+---+---+ | Given | 11/03/19 | 4 mg | | | | | 17 10:14 | | | | | | AM PDT | | | | +-------+ +------+---+---+ | Given | 11/03/19 | 4 mg | | | | | 17 5:02 | | | | | | AM PDT | | | | +-------+ +------+---+---+ +---+---+ | | | +---+---+ + +-------+ +-------+---+ + | papaverine injection PRN, | Given | 11/02/19 | 60 mg | | Surgical | | Starting 11/01/16 at 0945, | | 17 9:45 | | | Site | | Intra-op | | AM PDT | | | | + +-------+ +-------+---+ + +---+---+ | | | +---+---+ + +-------+ +------+---+---+ | polyethylene glycol (MIRALAX) | Given | 11/07/19 | 17 g | | | | powder 17 g 17 g, Oral, DAILY, | | 17 8:17 | | | | | First dose (after last | | AM PDT | | | | | modification) on Fri11/05/16 at | | | | | | | 0900, If docusate and senna | | | | | | | ineffective or not ordered, | | | | | | + +-------+ +------+---+---+ +-------+ +------+---+---+ | Given | 11/06/19 | 17 g | | | | | 17 8:37 | | | | | | AM PDT | | | | +-------+ +------+---+---+ +---+---+ | | | +---+---+ + +-------+ +--------+---+---+ | potassium chloride (K-DUR) ER | Given | 11/07/19 | 20 mEq | | | | tablet 20 mEq 20 mEq, Oral, 2 | | 17 2:38 | | | | | TIMES DAILY, First dose on Fri | | PM PDT | | | | | 11/06/16 at 1330, For 3 days | | | | | | + +-------+ +--------+---+---+ +---+---+ | | | +---+---+ documented in this encounter
--- OUTSIDE RECORDS SUMMARY | ~2019-04-12 | XMS | Encounter Summary ---
Demographics + + + | Address | [address] | | | [place] [address] | + + + | Home Phone | | + + + | Preferred Language | Unknown | + + + | Marital Status | | + + + | Pentecostal Affiliation | Unknown | + + + | Race | Unknown | + + + | Ethnic Group | Unknown | + + + Author + + + | Author | [facility] | | | and [place] | + + + | Organization | [facility] | | | and [place] | + + + | Address | Unknown | + + + | Phone | Unavailable | + + + Support + + + + + | Name | Relationship | Address | Phone | + + + + + | Osmin Jackson | ECON | [address] | | | | | [place] [address] | | + + + + + | Hunter [place] | [place]CON | [place] | | + + + + + | Wes Jackson | ECON | [place], [place] | | + + + + + | Oziel Jackson | ECON | [place], [place] | | + + + + + Care Team Providers + +------+ + | Care Production Statistical Clerk Name | Role | Phone | + +------+ + | Rodolfo Cruz MD | PCP | | + +------+ + Encounter Details +--------+ + + + + | Date | Type | Department | Care Team | Description | +--------+ + + + + | 03/23/ | Abstract | [facility] | Zion Davis MD | | | 2011 | | OTOLARYNGOLOGY [address] | [address] [facility] | | | | | [address] [facility] [address] | [address], | | | | | [place] | [place] [address] | | | | | [address] | [phone] | | | | | [phone] | | | +--------+ + + + + Social History + + + +--------+ + | Tobacco Use | Types | Packs/Day | Years | Date | | | | | Used | | + + + +--------+ + | Former Smoker | Cigarettes | 3 | 20 | Quit: 05/12/1976 | + + + +--------+ + + + +---------+ + | Alcohol Use | Drinks/Week | oz/Week | Comments | + + +---------+ + | No | | | | + + +---------+ + [...] Orthopedic Surgery | Ulysses Jensen, | | 2019 | Visit | | MD [address] | | | | | | [place] | | | | | | [address] | | | | | | | | +--------+---------+ + + + | 11/21/ | Office | Cardiology | Yesi, | | | 2019 | Visit | | [address] | | | | | | [place], | | | | | | [place] [address] | | | | | | [phone] | | | | | | | | +--------+---------+ + + + documented as of this encounter Visit Diagnoses Not on filedocumented in this encounter"
--- OUTSIDE RECORDS SUMMARY | ~2019-04-12 | XMS | Encounter Summary ---
Demographics + + + | Address | [address] | | | [place] [address] | + + + | Home Phone | | + + + | Preferred Language | Unknown | + + + | Marital Status | | + + + | Moravian Affiliation | Unknown | + + + | Race | Unknown | + + + | Ethnic Group | Unknown | + + + Author + + + | Author | [facility] | | | and [place] | + + + | Organization | [facility] | | | and [place] | + + + | Address | Unknown | + + + | Phone | Unavailable | + + + Support + + + + + | Name | Relationship | Address | Phone | + + + + + | Osmin Jackson | ECON | [address] | | | | | [place] [address] | | + + + + + | Hunter Jackson | ECON | [place] | | + + + + + | Wes Jackson | ECON | [place], [place] | | + + + + + | Oziel Jackson | ECON | [place], [place] | | + + + + + Care Team Providers + +------+ + | Care Edi Consultant Name | Role | Phone | [...] Description | +--------+--------+ + + + | 02/18/ | Refill | [facility] | Bree Nails RN | Medication Refill | | 2011 | | MEDICINE [facility] | | | | | | [place] | | | | | | [place] [address] | | | | | | [phone] | | | +--------+--------+ + + + [...] | | | | | | [address] | | | | | | [place] [address] | | | | | | [phone] | | | | | | | | +--------+---------+ + + + documented as of this encounter Visit Diagnoses Not on filedocumented in this encounter"
--- OUTSIDE RECORDS SUMMARY | ~2019-04-12 | XMS | Encounter Summary ---
Demographics + + + | Address | [address] | | | [place] [address] | + + + | Home Phone | | + + + | Preferred Language | Unknown | + + + | Marital Status | | + + + | Mandaeism Affiliation | Unknown | + + + | Race | Unknown | + + + | Ethnic Group | Unknown | + + + Author + + + | Author | [facility] | | | and [place] | + + + | Organization | [facility] | | | and [place] | + + + | Address | Unknown | + + + | Phone | Unavailable | + + + Support + + + + + | Name | Relationship | Address | Phone | + + + + + | Osmin Jackson | ECON | [address] | | | | | [place] [address] | | + + + + + | Hunter Jackson | ECON | [place] | | + + + + + | Wes Jackson | ECON | [place], [place] | | + + + + + | Oziel Jackson | ECON | [place], [place] | | + + + + + Care Team Providers + +------+ + | Care Community Recreation Programmer Name | Role | Phone | + [...] | | | atherosclero | | [address] | | | | | sis of | | [place], | | | | | unspecified | | [place] [address] | | | | | type of | | Phone: | | | | | vessel, | | [phone] | | | | | shoshone-bannock or | | Fax: | | | | | graft | | [phone] | | | | | Coronary | | | | | | | atherosclero | | | | | | | sis of | | | | | | | unspecified | | | | | | | type of | | | | | | | vessel, | | | | | | | shoshone-bannock or | | | | | | | graft | | | | | | | Procedures | | | | | | | MI ENDOSCOPY | | | | | | | | | | | | | | W/VIDEO-ASST | | | | | | | VEIN | | | | | | | HARVEST,CABG | | | | | | | MI CABG, | | | | | | | ARTERY-VEIN, | | | | | | | FOUR MI | | | | | | | CABG, | | | | | | | ARTERIAL, | | | | | | | SINGLE | | | +--------+--------+ + + + + Encounter Details +--------+ + + + + | Date | Type | Department | Care Team | Description | +--------+ + + + + | 11/01/ | Anesthesia | [facility] | Fredy Almaguer, | | | 2017 | Event | [facility] | [address] | | | | | OP [address] | [place] [address] | | | | | [place] | [phone] | | | | | [address] | | | | | | [phone] | | | +--------+ + + + + Anesthesia Record + + + + + | Procedure Name | Responsible | Anesthesia Start | Anesthesia Stop Time | | | Anesthesiologist | Time | | + + + + + | CABG X 4-5, AHMET MANDUJANO | Fredy Almaguer MD | 11/01/16 0730 | 11/01/16 1422 | | (N/A Chest) | | | | + + + + + +----+---+ + + | Da | T | Event | Comment | | te | i | | | | | m | | | | | e | | | +----+---+ + + | 06 | 0 | | | | /2 | 7 | | | | 3/ | 2 | | | | 20 | 3 | | | | 17 | | | | +----+---+ + + | | 0 | An Start | Reassessment prior to anesthesia induction/procedure. | | | 7 | | | | | 3 | | | | | 0 | | | +----+---+ + + | | 0 | Beta | The patient's heart rate is below 60. | | | 7 | [place] | | | | 3 | Declined | | | | 0 | | | +----+---+ + + | | 0 | Art Line | Arterial line placed by Fredy Almaguer MD between anesthesia | | | 7 | Start | start time and induction of anesthesia | | | 3 | | | | | 9 | | | +----+---+ + + | | 0 | Art Line | LEFT radial | | | 7 | Stop | | | | 4 | | | | | 3 | | | +----+---+ + + | | 0 | Preoxygenat | | | | 7 | ed | | | | 4 | | | | | 5 | | | +----+---+ + + | | 0 | An | | | | 7 | Induction | | | | 4 | | | | | 6 | | | +----+---+ + + | | 0 | An | Easy mask. Full view Esophageal inlet directly posterior to | | | 7 | Intubation | larynx | | | 5 | | | | | 0 | | | +----+---+ + + | | 0 | ORA Probe | A 18 Fr [place] sump was placed orally without difficulty under VL | | | 7 | Placement | monitoring. The stomach was decompressed, returning less than 10 | | | 5 | | ml clear bile-tinged fluid, followed by immediate removal. ORA | | | 4 | | probe was placed without difficulty using typical minimal force. | | | | | [place] videoscope used to guide OG and ORA placement. | | | | | Diagnostic ORA examination performed and interpreted by Fredy | | | | | MD Singh | +----+---+ + + | | 0 | CVC Start | CVC placed by Fredy Almaguer MD after induction of anesthesia | | | 8 | | | | | 0 | | | | | 2 | | | +----+---+ + + | | 0 | CVC Stop | Unsuccessful initial attempt RIJ Successful placement LIJ, but | | | 8 | | requiring fluroscopy to steer guidewire out of RIJ into SVC | | | 4 | | | | | 0 | | | +----+---+ + + | | 0 | Antibiotic | | | | 8 | Given | | | | 4 | | | | | 4 | | | +----+---+ + + | | 0 | First | | | | 8 | Inc/Proc St | | | | 4 | | | | | 6 | | | +----+---+ + + | | 0 | Autologous | | | | 8 | Blood Unit | | | | 5 | Removal | | | | 2 | | | +----+---+ + + | | 0 | Pre-Procedu | | | | 9 | ral Timeout | | | | 0 | Completed | | | | 0 | | | +----+---+ + + | | 1 | Insert | | | | 0 | Aortic | | | | 2 | Cannula | | | | 7 | | | +----+---+ + + | | 1 | Insert | | | | 0 | Retrograde | | | | 3 | Cannula | | | | 3 | | | +----+---+ + + | | 1 | Insert | | | | 0 | Venous | | | | 3 | Cannula | | | | 5 | | | +----+---+ + + | | 1 | An CV | | | | 0 | Bypass init | | | | 4 | | | | | 6 | | | +----+---+ + + | | 1 | An Clamp On | | | | 0 | | | | | 4 | | | | | 7 | | | +----+---+ + + | | 1 | Quick Note | Reverify zero and free aspiration from arterial line | | | 1 | | | | | 0 | | | | | 3 | | | +----+---+ + + | | 1 | Quick Note | Transducer and cable changed out without variation in BP | | | 1 | | | | | 2 | | | | | 4 | | | +----+---+ + + | | 1 | An Clamp | | | | 1 | Off | | | | 4 | | | | | 4 | | | +----+---+ + + | | 1 | An CV | | | | 2 | Bypass | | | | 0 | cease | | | | 5 | | | +----+---+ + + | | 1 | Autologous | | | | 2 | Blood Unit | | | | 1 | Transfused | | | | 8 | | | +----+---+ + + | | 1 | Antibiotic | | | | 2 | Given | | | | 1 | | | | | 8 | | | +----+---+ + + | | 1 | ORA Probe | | | | 3 | Removed | | | | 4 | | | | | 6 | | | +----+---+ + + | | 1 | an stop | | | | 4 | data | | | | 1 | | | | | 0 | | | +----+---+ + + | | 1 | An Stop | Patient handed off to recovery nurse. | | | 2 | | | | | 2 | | | +----+---+ + + | | 1 | Quick Note | Selective PWD and 3D imaging also performed. Intraop ORA for | | | 4 | | CABG (for CAD) Preop Dx Summary: 1. Normal LV function EF 65, | | | 2 | | mild concentric hypertrophy (11 mm) normal wall motion. 2. Normal | | | 3 | | RV. Normal atria and LA appendage. No shunt by CFD. 3. Calcifed | | | | | ~ 1 cm area in posterior mitral annulus. Otherwise valve | | | | | structure relatively normal. 4. Mild central MR, trace central | | | | | AI, no , trace TR, trace MI. 5. Normal aorta other than mild | | | | | calcification at ST junction. Normal diameter. Normal PA. 6. No | | | | | effusions. Postop Dx: 1. Hypercontractile LV, EF 65-70, no RWMA | | | | | 2. No change in visible portions of aorta after decannulation. | | | | | 3. No change in ventriclar function compared to preop. 4. No | | | | | change in valves compared to preop. Procedure: 1. CABG x 3 | | | | | Left Ventricle: Normal LV fxn with visually estimated LVEF 65%. | | | | | Normal LV size and shape. Mild concentric hypertrophy. | | | | | Inferolateral wall 11 mm. No wall motion abnormalites POSTOP: No | | | | | change compared to preop. Right Ventricle: Normal RV size, | | | | | thickness and function. POSTOP: No change compared to preop. | | | | | Atria: No obvious atrial enlargement (LA difficult to assess with | | | | | ORA). FER normal size without SEC, masses, or thrombi. FER | | | | | inflow and outflow velocities WNL. IAS intact, no PFO detected. | | | | | POSTOP: No change compared to preop. Mitral Valve: Mild mitral | | | | | regurgitation with central jet. Leaflets of normal thickness with | | | | | normal opening. Moderate MAC of posterior annulus with calcified | | | | | approx 8 mm nodule protruding into ventricular side of mitral | | | | | annulus. No leaflet prolapse. No ROD. No LVOT turbulence. | | | | | POSTOP: No change compared to preop. Tricuspid Valve: Normal | | | | | tricuspid leaflet thickness and opening. Trace tricuspid | | | | | regurgitation. Hepatic vein flow normal pattern. POSTOP: No | | | | | change compared to preop. Aortic Valve: Trileaflet aortic valve. | | | | | No aortic stenosis. Short segment of calcification along | | | | | posterior half of left coronary cusp with minimal effect on | | | | | leaflet motion.Trace central aortic insufficiency. POSTOP: No | | | | | change compared to preop. Pulmonic Valve: Good visualization of | | | | | pulmonic valve. Trace pulmonic regurgitation. POSTOP: No change | | | | | compared to preop. Great Vessels: Normally-sized aortic root. | | | | | Visible portions of ascending aorta normal. Sinotubular junction | | | | | calcified. Descending aorta of normal diameter. Atherosclerosis | | | | | in descending aorta is Grade I - Less than 1 mm thickening.. | | | | | Pulmonary artery is normal. POSTOP: No change in visible portions | | | | | of aorta compared to preop after decannulation. Other: Normal | | | | | pericardium. No pericardial effusion. No pleural effusion. | | | | | POSTOP: No pericardial or pleural effusion after sternal closure. | | | | | Comments: 1. Images acquired during general anesthesia with | | | | | positive pressure ventilation. 2. Preop rhythm: SR. Postop | | | | | rhythm SR. 3. Vasoactive medications during preop image | | | | | acquistion: Phenylephrine infusion titrated to maintain normal | | | | | BP. Vasoactive medications during postop image acquistion: | | | | | Clevidipine as needed to titrate BP | +----+---+ + + +------+ | Meds | +------+ + + + | Name | Total | + + + | SUFentanil | 100 mcg | + + + | SUFentanil | 268 mcg | + + + | phenylephrine | 200 mcg | + + + | phenylephrine | 9,550 mcg | + + + | rocuronium | 100 mg | + + + | clevidipine | 4.45 mg | + + + | heparin | 30,000 Units | + + + | lidocaine 2% | 150 mg | + + + | fentaNYL injection (2 mL) | 350 mcg | + + + | midazolam | 5 mg | + + + | propofol (DIPRIVAN) injection | 20 mg | | (bolus) (20 mL) | | + + + | aminocaproic acid | 10 g | + + + | protamine | 250 mg | + + + | propofol infusion | 488 mg | + + + | glycopyrrolate | 0.2 mg | + + + | ceFAZolin in saline (ANCEF) IVPB | 4 g | | 2 g | | + + + | LR (Infusion) | 200 mL | + + + | balanced electrolytes in water | 1,000 mL | | (PLASMALYTE-148/NORMOSOL-R) | | | infusion | | + + + + + | Name | + + | N2O Flow Rate (L/Min) | + + | O2 Flow Rate (L/Min) | + + | Insp O2 | + + | Exp N2O | + + | Exp SEV | + + | Air Flow Rate (L/Min) | + + + + | No blood administrations on file. | + + +--------+ + + + | Type | Details | Placement | Removal | +--------+ + + + | Wound | 10/16/16; 1039; Right; anterior; | 10/16/16 1039 by | 11/02/16 0731 by | | | wrist; puncture; TR band applied | Dolores Henry, | Semaj Bynum, | | | 12 ml air in balloon; 11/02/16; | Technologist | JONATHAN Student | | | 0731 | | | +--------+ + + + | Periph | 11/01/16; 0652; Left; Hand; | 11/01/16 0652 by | 11/05/16 1600 by | | eral | [id number]-qwlszi catheter system; | Angelica Smith, | Raquel Chen RN | | IV | 18 gauge, 1 1/4 in length; | RN | | | | 11/05/16; 1600 | | | +--------+ + + + | Urethr | 11/01/16; 0745; indicated for | 11/01/16 0745 by | 11/02/16 1623 by | | al | critically ill with need for | Chloé Choi, CB | Semaj Bynum, | | Cathet | accurate I/O; All elements; All | | JAVA SECURITY ENGINEER Student | | er | elements; All elements; | | | | | indwelling catheter with core | | | | | temperature probe; 100% silicone; | | | | | 16; None; 1; 10; 10; none; | | | | | electronic urine monitoring unit | | | | | to dependent drainage; 11/02/16; | | | | | 1623 | | | +--------+ + + + | Airway | Placement Date: 11/01/16; | 11/01/16 075 by | 11/01/161848 by | | | Placement Time: 749; Mask | Fredy Almaguer MD | Dinh Calderon, | | | Ventilation: EZ; Successful | | RAW STOCK DYEING MACHINE TENDER | | | Technique: video scope; Airway | | | | | Type: endotracheal, oral, cuffed; | | | | | Size: 7.5; Airway Tube Secured | | | | | At: 23; Tube Reference Point: | | | | | gum; Trauma: none; Other | | | | | Equipment: stylette; Placement | | | | | Check: verified by capnography, | | | | | verified by auscultation; | | | | | Removal: per order, removed by | | | | | RT; Removal Date: 11/01/16; | | | | | Removal Time: 1848 | | | +--------+ + + + | Pacema | 11/01/16; 49; epicardial; DDD; | 11/01/16 0949 by | 11/04/16 1039 by | | ker | sensing; 11/04/16 (Pacer wires | Chloé Choi RN | Shauna Mckinney, | | | removed by [facility]); 1039 | | RN | +--------+ + + + | Chest | 11/01/16; 0950; eze; | 11/01/16 0950 by | 11/02/16 1020 by | | Tube Y | Left:; anterior; pleural; 19 Fr.; | Chloé Choi RN | Semaj Bynum, | | 123 | midline; anterior; pericardial; | | JAVA SECURITY ENGINEER Student | | | 19 Fr.; midline; anterior; | | | | | mediastinal; 19 Fr.; 11/02/16; | | | | | 1020 | | | +--------+ + + + | CVC | 11/01/16; 1012 (created via | 11/01/16 1012 by | 11/02/16 2030 by | | Double | procedure documentation); Yes; | Fredy Almaguer MD | Verna Parson V, | | Lumen | Chlorhexidine/Isopropyl Alcohol; | | RN | | | Yes; Yes; [place]; Fredy Almaguer, | | | | | ; New indication for central | | | | | line (e.g., hemodynamic | | | | | monitoring, fluid/medication | | | | | administration, etc.); internal | | | | | jugular vein, right; under GA; 12 | | | | | Fr; ultrasound guided; CVC | | | | | placement note: LEFT IJ 9 Fr MAC | | | | | introducer Procedure: | | | | | Initial attempt with ultrasound | | | | | guidance on right successful | | | | | return of blood on first advance | | | | | with 18 ga TW needle, however | | | | | unable to easily advance | | | | | guidewire. In course of further | | | | | manipulations with 18 ga angio, | | | | | guidewire removed and hemotoma | | | | | developed at puncture site making | | | | | second attempt on right | | | | | unsuccessful. Left side elected | | | | | for cannulation. An 18 ga | | | | | thin-walled needle and syringe | | | | | was advanced 1 time into Left IJ | | | | | with free flow of blood on | | | | | aspiration. A guidewire was | | | | | inserted against zero resistance | | | | | through the open hub of the TW | | | | | needle and found to move freely | | | | | after removal of the 18 ga TW | | | | | needle. The position of the | | | | | guidewire in the IJ was confirmed | | | | | with ultrasound prior to track | | | | | dilation. An image of the | | | | | ultrasound display was captured. | | | | | However, the guidewire was not | | | | | observed in RA with ORA. | | | | | Fluoroscopy revealed guidewire | | | | | tracking inoto right IJ. With | | | | | additional manipulation guidewire | | | | | successfully advanced into SVC | | | | | and both introducer and double | | | | | lumen catheter advanced | | | | | guidewire. After a small incision | | | | | with a #11 blade, the track was | | | | | dilated with the | | | | | plkjkawpqe-efcp-hdrtjhy to the | | | | | device hub and after a | | | | | bactericidal disc was applied at | | | | | the point of entry secured at 3 | | | | | points with suture. A 2-lumen | | | | | infusion catheter was inserted | | | | | through the device port. All | | | | | ports were flushed after | | | | | aspiration and connected by Luer | | | | | lock to either tubing or | | | | | needleless flush caps. ; | | | | | 11/02/16; 2030 (IJ was removed | | | | | before comming to 6N) | | | +--------+ + + + | Arteri | 11/01/16; 1012 (created via | 11/01/16 1012 by | 11/02/16 171 by | | al | procedure documentation); | Fredy Almaguer MD | Semaj Bynum, | | Line | sedated; Left; radial artery; 20 | | JAVA SECURITY ENGINEER Student | | | gauge; continuous blood pressure | | | | | monitoring; intradermal | | | | | injection; landmarks; other (see | | | | | comments); 11/02/16; 1715 | | | +--------+ + + + | Chest | 11/01/16; 1312; 4; right; | 11/01/16 1312 by | 11/02/16 1020 by | | Tube | anterior; pleural; 11/02/16; 1020 | Chloé Choi RN | Semaj Bynum, | | | | | JAVA SECURITY ENGINEER Student | +--------+ + + + documented in this encounter Social History + + + +--------+ + [...] | | | | | | [place] [id number] | | | | | | [phone] | | | | | | | | +--------+---------+ + + + documented as of this encounter Procedures + +--------+ + + + | Procedure Name | Priori | Date/Time | Associated Diagnosis | Comments | | | ty | | | | + +--------+ + + + | ANE ARTERIAL LINE | Routin | 11/01/2016 | | Results for this | | NOTE | e | 10:12 AM | | procedure are in the | | | | PDT | | results section. | + +--------+ + + + | ANE CENTRAL VENOUS | Routin | 11/01/2016 | | Results for this | | NOTE | e | 10:12 AM | | procedure are in the | | | | PDT | | results section. | + +--------+ + + + documented in this encounter Results Anesthesia Arterial Line Note (11/01/2016 10:12 AM PDT) + + + | Narrative | Performed At | + + + | Fredy Almaguer MD 11/01/2016 10:12 Arterial Line Placement | | | Indication: continuous blood pressure monitoring Patient was: | | | sedated Pain prevention: 1% lidocaine infiltration Laterality: left | | | Artery:radial Size: 20 g Localization technique: landmark | | | Securement: transparent dressing Performed by: FREDY ALMAGUER | | | Electronically Signed by: Fredy Almaguer MD | | | ESig date/time: 11/01/2016 10:06 | | + + + + --------+ | Procedure Note | + --------+ | Fredy Almaguer MD - 11/01/2016 10:06 AM PDT Arterial Line PlacementIndication: | | continuous blood pressure monitoringPatient was: sedatedPain prevention: 1% lidocaine | | infiltrationLaterality: leftArtery:radialSize: 20 gLocalization technique: | | landmarkSecurement: transparent dressingPerformed by: FREDY ALMAGUER SElectronically | | Signed by: MD Ace Barbosa date/time: 11/01/2016 10:06 | |Laterality: left | |Artery:radial | |Size: 20 g | |Localization technique: landmark | |Securement: transparent dressing | |Performed by: FREDY ALMAGUER | | | | | |Electronically Signed by: MD Ace Barbosa date/time: 7 10:06 | + --------+ Anesthesia Central Venous Catheter Note (11/01/2016 10:12 AM PDT) + + + | Narrative | Performed At | + + + | Fredy Almaguer MD 11/01/2016 10:12 Central Venous Line | | | Placement Indication: continuous CVP monitoring and intravenous | | | access Insertion reason: new indication for central line Prep | | | solution: chlorhexidine/isoproplyl alcohol Preparation: central line | | | kit used, staff scrubbed hands and prep allowed to dry Patient was: | | | under GA Vein: right internal jugular Size: 12 Fr Number of | | | Lumens: double lumen Localizaton technique: ultrasound Radiology | | | image stored in patient's chart: ultrasound Placement verification: | | | ultrasound visualization of wire in vein Securement: transparent | | | dressing and sutures Complications: no complications noted at this | | | time Performed by: FREDY ALMAGUER Comments: CVC placement note: | | | LEFT IJ 9 Fr MAC introducer Procedure: Initial attempt | | | with ultrasound guidance on right successful return of blood on | | | first advance with 18 ga TW needle, however unable to easily advance | | | guidewire. In course of further manipulations with 18 ga angio, | | | guidewire removed and hemotoma developed at puncture site making | | | second attempt on right unsuccessful. Left side elected for | | | cannulation. An 18 ga thin-walled needle and syringe was advanced | | | 1 time into Left IJ with free flow of blood on aspiration. A | | | guidewire was inserted against zero resistance through the open hub | | | of the TW needle and found to move freely after removal of the 18 ga | | | TW needle. The position of the guidewire in the IJ was confirmed | | | with ultrasound prior to track dilation. An image of the | | | ultrasound display was captured. However, the guidewire was not | | | observed in RA with ORA. Fluoroscopy revealed guidewire tracking inoto | | | right IJ. With additional manipulation guidewire successfully | | | advanced into SVC and both introducer and double lumen catheter | | | advanced guidewire. After a small incision with a #11 blade, the | | | track was dilated with the upmoolksqu-owta-djqbmcc to the device hub | | | and after a bactericidal disc was applied at the point of entry | | | secured at 3 points with suture. A 2-lumen infusion catheter was | | | inserted through the device port. All ports were flushed after | | | aspiration and connected by Luer lock to either tubing or needleless | | | flush caps. Location performed: [place] Electronically Signed by: | | | Fredy Almaguer MD ESig date/time: | | | 11/01/2016 10:07 | | + + + + -------+ | Procedure Note | + -------+ | Fredy Almaguer MD - 11/01/2016 10:07 AM PDT Central Venous Line | | PlacementIndication: continuous CVP monitoring and intravenous accessInsertion reason: | | new indication for central linePrep solution: chlorhexidine/isoproplyl | | alcoholPreparation: central line kit used, staff scrubbed hands and prep allowed to | | dryPatient was: under GAVein: right internal jugularSize: 12 FrNumber of Lumens: double | | lumenLocalizaton technique: ultrasoundRadiology image stored in patient's chart: | | ultrasoundPlacement verification: ultrasound visualization of wire in veinSecurement: | | transparent dressing and suturesComplications: no complications noted at this | | timePerformed by: FREDY ALMAGUER SComments: CVC placement note: LEFT IJ 9 Fr MAC | | introducer Procedure: Initial attempt with ultrasound guidance on right successful | | return of blood on first advance with 18 ga TW needle, however unable to easily advance | | guidewire. In course of further manipulations with 18 ga angio, guidewire removed and | | hemotoma developed at puncture site making second attempt on right unsuccessful. Left | | side elected for cannulation.An 18 ga thin-walled needle and syringe was advanced 1 time | | into Left IJ with free flow of blood on aspiration. A guidewire was inserted against | | zero resistance through the open hub of the TW needle and found to move freely after | | removal of the 18 ga TW needle. The position of the guidewire in the IJ was confirmed | | with ultrasound prior to track dilation. An image of the ultrasound display was | | captured. However, the guidewire was not observed in RA with ORA. Fluoroscopy revealed | | guidewire tracking inoto right IJ. With additional manipulation guidewire successfully | | advanced into SVC and both introducer and double lumen catheter advanced guidewire. | | After a small incision with a #11 blade, the track was dilated with the | | ccpirxulkv-bbor-zdmmrgq to the device hub and after a bactericidal disc was applied at | | the point of entry secured at 3 points with suture. A 2-lumen infusion catheter was | | inserted through the device port.All ports were flushed after aspiration and connected | | by Luer lock to either tubing or needleless flush caps.Location performed: [place] | | Electronically Signed by: FredyMD Ace Matamoros date/time: | | 11/01/2016 10:07 | | | |Location performed: [place] | | | |Electronically Signed by: MD Ace Barbosa date/time: 11/01/2016 10:07 | + -------+ documented in this encounter Visit Diagnoses Not on filedocumented in this encounter Administered Medications + +--------+ +------+------+------+ | Medication Order | MAR | Action | Dose | Rate | Site | | | Action | Date | | | | + +--------+ +------+------+------+ | aminocaproic acid (AMICAR) | Given | 11/02/19 | 10 g | | | | injection Intravenous, PRN, | | 17 12:08 | | | | | Starting 11/01/16 at 1208, | | PM PDT | | | | | Anesthesia Intra-op | | | | | | + +--------+ +------+------+------+ +---+---+ | | | +---+---+ + + + +---+---+---+ | balanced electrolytes in water | Restarte | 11/02/19 | | | | | (PLASMALYTE-148/NORMOSOL-R) | d | 17 12:06 | | | | | infusion at 25 mL/hr, | | PM PDT | | | | | Intravenous, CONTINUOUS, Starting | | | | | | | 11/01/16 at 0715, TKO, Pre-op | | | | | | + + + +---+---+---+ +---------+ +--------+ +---+ | New Bag | 11/02/19 | | | | | | 17 7:30 | | | | | | AM PDT | | | | +---------+ +--------+ +---+ | New Bag | 11/02/19 | 25 mLs | 25 mL/hr | | | | 17 6:47 | | | | | | AM PDT | | | | +---------+ +--------+ +---+ +---+---+ | | | +---+---+ + +-------+ +-----+---+---+ | ceFAZolin in saline (ANCEF) | Given | 11/02/19 | 2 g | | | | IVPB 2 g 2 g, Intravenous, | | 17 12:18 | | | | | Administer over 30 Minutes, Prior | | PM PDT | | | | | to Incision, Starting Fri | | | | | | | 11/01/16 at 0517, For 1 dose, Give | | | | | | | within one hour prior to | | | | | | | incision. Keep in refrigerator., | | | | | | | Pre-op, Indications: Surgical | | | | | | | Prophylaxis | | | | | | + +-------+ +-----+---+---+ +-------+ +-----+---+---+ | Given | 11/02/19 | 2 g | | | | | 17 8:44 | | | | | | AM PDT | | | | +-------+ +-----+---+---+ +---+---+ | | | +---+---+ + + + +---------+---------+---+ | clevidipine (CLEVIPREX) | Restarte | 11/02/19 | 2 mg/hr | 4 mL/hr | | | infusion 0.5 mg/mL Intravenous, | d | 17 12:35 | | | | | CONTINUOUS PRN, Starting Fri | | PM PDT | | | | | 11/01/16 at 1116, Anesthesia | | | | | | | Intra-op | | | | | | + + + +---------+---------+---+ + + +---------+ +---+ | Restarted | 11/02/19 | 2 mg/hr | 4 mL/hr | | | | 17 12:17 | | | | | | PM PDT | | | | + + +---------+ +---+ | New Bag | 11/02/19 | 5 mg/hr | 10 mL/hr | | | | 17 11:16 | | | | | | AM PDT | | | | + + +---------+ +---+ +---+---+ | | | +---+---+ + +-------+ +---------+---+---+ | fentaNYL (PF) injection | Given | 11/02/19 | 250 mcg | | | | Intravenous, PRN, Pain, Starting | | 17 11:10 | | | | | 11/01/16 at 0735, Anesthesia | | AM PDT | | | | | Intra-op | | | | | | + +-------+ +---------+---+---+ +-------+ +--------+---+---+ | Given | 11/02/19 | 50 mcg | | | | | 17 7:46 | | | | | | AM PDT | | | | +-------+ +--------+---+---+ | Given | 11/02/19 | 50 mcg | | | | | 17 7:35 | | | | | | AM PDT | | | | +-------+ +--------+---+---+ +---+---+ | | | +---+---+ + +-------+ +--------+---+---+ | glycopyrrolate (DYLAN) | Given | 11/02/19 | 0.2 mg | | | | injection Intravenous, PRN, | | 17 10:03 | | | | | Secretions, Starting 11/01/16 | | AM PDT | | | | | at 1003, Anesthesia Intra-op | | | | | | + +-------+ +--------+---+---+ +---+---+ | | | +---+---+ + +-------+ +---------+---+---+ | heparin 1,000 units/mL | Given | 11/02/19 | 30,000 | | | | injection Intravenous, PRN, | | 17 10:12 | Units | | | | Starting Fri11/01/16 at 1012, | | AM PDT | | | | | Anesthesia Intra-op | | | | | | + +-------+ +---------+---+---+ +---+---+ | | | +---+---+ + +---------+ +---+---+---+ | lactated ringers (LR) infusion | New Bag | 11/02/19 | | | | | Intravenous, CONTINUOUS PRN, | | 17 1:20 | | | | | Starting Fri11/01/16 at 1320, | | PM PDT | | | | | Anesthesia Intra-op | | | | | | + +---------+ +---+---+---+ +---+---+ | | | +---+---+ + +-------+ +--------+---+---+ | lidocaine (PF) 2% injection | Given | 11/02/19 | 150 mg | | | | Intravenous, PRN, Starting Fri | | 17 7:46 | | | | | 11/01/16 at 0746, Anesthesia | | AM PDT | | | | | Intra-op | | | | | | + +-------+ +--------+---+---+ +---+---+ | | | +---+---+ + +-------+ +------+---+---+ | midazolam (VERSED) 1 mg/mL | Given | 11/02/19 | 4 mg | | | | injection Intravenous, PRN, | | 17 7:46 | | | | | Anxiety, Starting Fri11/01/16 at | | AM PDT | | | | | 0746, Anesthesia Intra-op | | | | | | + +-------+ +------+---+---+ +-------+ +------+---+---+ | Given | 11/02/19 | 1 mg | | | | | 17 7:34 | | | | | | AM PDT | | | | +-------+ +------+---+---+ +---+---+ | | | +---+---+ + +---------+ +---------+-------+---+ | phenylephrine (CHASIDY-SYNEPHRINE) | New Bag | 11/02/19 | 25 | 0.2 | | | 10 mg/mL injection Intravenous, | | 17 8:00 | mcg/min | mL/hr | | | CONTINUOUS PRN, Starting Fri | | AM PDT | | | | | 11/01/16 at 0800, Anesthesia | | | | | | | Intra-op | | | | | | + +---------+ +---------+-------+---+ +---+---+ | | | +---+---+ + +-------+ +---------+---+---+ | phenylephrine (CHASIDY-SYNEPHRINE) | Given | 11/02/19 | 100 mcg | | | | 10 mg/mL injection Intravenous, | | 17 10:16 | | | | | PRN, Starting 11/01/16 at | | AM PDT | | | | | 0857, Anesthesia Intra-op | | | | | | + +-------+ +---------+---+---+ +-------+ +---------+---+---+ | Given | 11/02/19 | 100 mcg | | | | | 17 8:57 | | | | | | AM PDT | | | | +-------+ +---------+---+---+ +---+---+ | | | +---+---+ + +-------+ +-------+---+---+ | propofol (DIPRIVAN) injection | Given | 11/02/19 | 20 mg | | | | Intravenous, PRN, Starting Fri | | 17 7:46 | | | | | 11/01/16 at 0746, Anesthesia | | AM PDT | | | | | Intra-op | | | | | | + +-------+ +-------+---+---+ +---+---+ | | | +---+---+ + +---------+ + + +---+ | propofol infusion (DIPRIVAN) 10 | New Bag | 11/02/19 | 50 | 24 mL/hr | | | mg/mL infusion Intravenous, | | 17 12:20 | mcg/kg/m | | | | CONTINUOUS PRN, Starting Fri | | PM PDT | in | | | | 11/01/16 at 1220, Anesthesia | | | | | | | Intra-op | | | | | | + +---------+ + + +---+ +---+---+ | | | +---+---+ + +-------+ +--------+---+---+ | protamine injection | Given | 11/02/19 | 250 mg | | | | Intravenous, PRN, Starting Fri | | 17 12:12 | | | | | 11/01/16 at 1212, Anesthesia | | PM PDT | | | | | Intra-op | | | | | | + +-------+ +--------+---+---+ +---+---+ | | | +---+---+ + +-------+ +-------+---+---+ | rocuronium (ZEMURON) injection | Given | 11/02/19 | 20 mg | | | | Intravenous, PRN, Ventilator | | 17 8:56 | | | | | Dyssynchrony, Starting Fri | | AM PDT | | | | | 11/01/16 at 0746, Anesthesia | | | | | | | Intra-op | | | | | | + +-------+ +-------+---+---+ +-------+ +-------+---+---+ | Given | 11/02/19 | 80 mg | | | | | 17 7:46 | | | | | | AM PDT | | | | +-------+ +-------+---+---+ +---+---+ | | | +---+---+ + +-------+ +--------+---+---+ | SUFentanil (SUFENTA) injection | Given | 11/02/19 | 30 mcg | | | | Intravenous, PRN, Pain, Starting | | 17 10:51 | | | | | 11/01/16 at 0930, Anesthesia | | AM PDT | | | | | Intra-op | | | | | | + +-------+ +--------+---+---+ +-------+ +--------+---+---+ | Given | 11/02/19 | 30 mcg | | | | | 17 9:31 | | | | | | AM PDT | | | | +-------+ +--------+---+---+ | Given | 11/02/19 | 20 mcg | | | | | 17 9:30 | | | | | | AM PDT | | | | +-------+ +--------+---+---+ +---+---+ | | | +---+---+ + +---------+ + +---------+---+ | SUFentanil (SUFENTA) injection | New Bag | 11/02/19 | 0.6 | 1 mL/hr | | | Intravenous, CONTINUOUS PRN, | | 17 8:47 | mcg/kg/h | | | | Pain, Starting 11/01/16 at | | AM PDT | r | | | | 0847, Anesthesia Intra-op | | | | | | + +---------+ + +---------+---+ +---+---+ | | | +---+---+ documented in this encounter"
--- OUTSIDE RECORDS SUMMARY | ~2019-04-12 | XMS | Encounter Summary ---
Demographics + + + | Address | [address] | | | [place] [address] | + + + | Home Phone | | + + + | Preferred Language | Unknown | + + + | Marital Status | | + + + | Uatsdin Affiliation | Unknown | + + + | Race | Unknown | + + + | Ethnic Group | Unknown | + + + Author + + + | Author | [facility] | | | and [place] | + + + | Organization | [facility] | | | and [place] | + + + | Address | Unknown | + + + | Phone | Unavailable | + + + Support + + + + + | Name | Relationship | Address | Phone | + + + + + | Osmin Jackson | ECON | [address] | | | | | [place] [address] | | + + + + + | Hunter Jackson | ECON | [place] | | + + + + + | Wes Jackson | ECON | [place], [place] | | + + + + + | Oziel Jackson | ECON | [place], [place] | | + + + + + Care Team Providers + +------+ + | Care Surface Plate Inspector Name | Role | Phone | + [...] Description | +--------+--------+ + + + | 04/15/ | Refill | [facility] | Rodolfo Cruz, | Medication Refill | | 2015 | | [facility] | [address] | | | | | [address] | [place] | | | | | [place] | [address] | | | | | [address] | | | | | | [phone] | | | +--------+--------+ + + + [...] [place] | | | | | | [id number] | | | | | | | | +--------+---------+ + + + | 11/21/ | Office | Cardiology | Yes[facility], | | | 2019 | Visit | | [address] | | | | | | [place] | | | | | | [place] [address] | | | | | | [phone] | | | | | | | | +--------+---------+ + + + documented as of this encounter Visit Diagnoses Not on filedocumented in this encounter"
--- OUTSIDE RECORDS SUMMARY | ~2019-04-12 | XMS | Encounter Summary ---
Demographics + + + | Address | [address] | | | [place] [address] | + + + | Home Phone | | + + + | Preferred Language | Unknown | + + + | Marital Status | | + + + | Sabianism Affiliation | Unknown | + + + | Race | Unknown | + + + | Ethnic Group | Unknown | + + + Author + + + | Author | [facility] | | | and [place] | + + + | Organization | [facility] | | | and [place] | + + + | Address | Unknown | + + + | Phone | Unavailable | + + + Support + + + + + | Name | Relationship | Address | Phone | + + + + + | Osmin Jackson | ECON | [address] | | | | | [place] [address] | | + + + + + | Hunter Jackson | ECON | [place] | | + + + + + | Wes Jackson | ECON | [place], [place] | | + + + + + | Oziel Jackson | ECON | [place], [place] | | + + + + + Care Team Providers + +------+ + | Care City Clerk Name | Role | Phone | + +------+ + | Kellie Gunderson | PCP | | + +------+ + Encounter Details +--------+ + + + + | Date | Type | Department | Care Team | Description | +--------+ + + + + | 09/11/ | Abstract | [facility] | [place], | | | 2017 | | CARDIOLOGY [address] | [address] | | | | | [place], | [place], | | | | | [place] [address] | [place] [address] | | | | | [phone] | [phone] | | | | | | | [...] [address] | | | | | | [place] | | | | | | [place] [address] | | | | | | [phone] | | | | | | | | +--------+---------+ + + + documented as of this encounter Procedures + +--------+ + + + | Procedure Name | Priori | Date/Time | Associated Diagnosis | Comments | | | ty | | | | + +--------+ + + + | EXTERNAL LAB: | Routin | 07/21/2017 | | Results for this | | MAGNESIUM | e | | | procedure are in the | | | | | | results section. | + +--------+ + + + | EXTERNAL LAB: CBC | Routin | 07/21/2017 | | Results for this | | | e | | | procedure are in the | | | | | | results section. | + +--------+ + + + documented in this encounter Results External Lab: Magnesium (07/21/2017) + +-------+ + + + | Component | Value | Ref Range | Performed | Pathologist | | | | | At | Signature | + +-------+ + + + | Magnesium, | 2.2 | 1.7 - 2.5 | EXTERNAL | | | External | | | LAB | | + +-------+ + + + + + | Resulting Agency Comment | + + | [facility] | + + + +---------+ + + | Performing | Address | City/State/Zipcode | Phone Number | | Organization | | | | + +---------+ + + | EXTERNAL LAB | | | | + +---------+ + + External Lab: CBC (07/21/2017) + + + + + + | Component | Value | Ref Range | Performed | Pathologist | | | | | At | Signature | + + + + + + | WBC, | 11.2 (A) | 4.5 - 11 | EXTERNAL | | | External | | | LAB | | + + + + + + | HGB, | 14.1 (A) | 35 - 45 | EXTERNAL | | | External | | | LAB | | + + + + + + | HCT, | 42.7 | 35 - 45 | EXTERNAL | | | External | | | LAB | | + + + + + + | PLT, | 336 | 140 - 440 | EXTERNAL | | | External | | | LAB | | + + + + + + | Neutrophils | 77.4 | 39 - 80 | EXTERNAL | | | , Absolute, | | | LAB | | | External | | | | | + + + + + + | Lymphocytes | 12.9 (A) | 24 - 44 | EXTERNAL | | | , Absolute, | | | LAB | | | External | | | | | + + + + + + | Monocytes, | 7.7 | 0 - 12 | EXTERNAL | | | Absolute, | | | LAB | | | External | | | | | + + + + + + | Eosinophils | 1.6 | 0 - 6 | EXTERNAL | | | , Absolute | | | LAB | | + + + + + + | Basophils, | 0.4 | 0 - 2 | EXTERNAL | | | Absolute | | | LAB | | + + + + + + | RBC, | 4.16 (A) | 12 - 16 | EXTERNAL | | | External | | | LAB | | + + + + + + | MCV, | 103 (A) | 81 - 99 | EXTERNAL | | | External | | | LAB | | + + + + + + | RDW, | 12.9 | 10.5 - 15 | EXTERNAL | | | External | | | LAB | | + + + + + + + + | Resulting Agency Comment | + + | [facility] | + + + +---------+ + + | Performing | Address | City/State/Zipcode | Phone Number | | Organization | | | | + +---------+ + + | EXTERNAL LAB | | | | + +---------+ + + documented in this encounter Visit Diagnoses Not on filedocumented in this encounter"
--- OUTSIDE RECORDS SUMMARY | ~2019-04-12 | XMS | Encounter Summary ---
Demographics + + + | Address | [address] | | | [place] [address] | + + + | Home Phone | | + + + | Preferred Language | Unknown | + + + | Marital Status | | + + + | Baptism Affiliation | Unknown | + + + | Race | Unknown | + + + | Ethnic Group | Unknown | + + + Author + + + | Author | [facility] | | | and [place] | + + + | Organization | [facility] | | | and [place] | + + + | Address | Unknown | + + + | Phone | Unavailable | + + + Support + + + + + | Name | Relationship | Address | Phone | + + + + + | Osmin Jackson | ECON | [address] | | | | | [place] [address] | | + + + + + | Hunter Jackson | ECON | [place] | | + + + + + | Wes Jackson | ECON | [place], [place] | | + + + + + | Oziel Jackson | ECON | [place], [place] | | + + + + + Care Team Providers + +------+ + | Care Founder And President Name | Role | Phone | + +------+ + | Kellie Gunderson | PCP | | + +------+ + Reason for Referral Evaluate & Treat (Routine) +--------+ + + + + + | Status | Reason | Specialty | Diagnoses / | Referred By | Referred To | | | | | Procedures | Contact | Contact | +--------+ + + + + + | Closed | Specialty | Cardiac | Diagnoses | Surya, | | | | Services | Rehabilitatio | Coronary | ANN Martin | | | | Required | n | artery | [address] | | | | | | disease | [address] | | | | | | involving | [place] | | | | | | [place] | [address] | | | | | | coronary | Phone: | | | | | | artery of | [phone] | | | | | | [place] heart | Fax: | | | | | | with | [phone] | | | | | | unstable | | | | | | | angina | | | | | | | pectoris | | | | | | | ([facility]) | | | +--------+ + + + + + Reason for Visit Auth/Cert +--------+--------+ + [...] | | | atherosclero | | [address] | | | | | sis of | | AVE [place], | | | | | unspecified | | [place] [address] | | | | | type of | | Phone: | | | | | vessel, | | [phone] | | | | | [place] | | Fax: | | | | | graft | | [phone] | | | | | Coronary | | | | | | | atherosclero | | | | | | | sis of | | | | | | | unspecified | | | | | | | type of | | | | | | | vessel, | | | | | | | [place] or | | | | | | | graft | | | | | | | Procedures | | | | | | | [place] ENDOSCOPY | | | | | | | | | | | | | | W/VIDEO-ASST | | | | | | | VEIN | | | | | | | HARVEST,CABG | | | | | | | [place] CABG, | | | | | | | ARTERY-VEIN, | | | | | | | FOUR [place] | | | | | | | CABG, | | | | | | | ARTERIAL, | | | | | | | SINGLE | | | +--------+--------+ + + + + Encounter Details +--------+ + + + + | Date | Type | Department | Care Team | Description | +--------+ + + + + | 11/01/ | Hospital | [facility] | Eze, | Coronary artery | | 2017 - | Encounter | [facility] | MD Christina [address] [place] [address] | disease, angina | | | | CARDIAC TELEMETRY | [address] [place] | presence | | 11/06/ | | [address] | [address] | unspecified, | | 2017 | | [place] | | unspecified vessel | | | | [address] | | or lesion type, | | | | [phone] | | unspecified whether | | | | | | [place] or | | | | | | transplanted heart | | | | | | (Primary Dx); | | | | | | Valvular heart | | | | | | disease; Anemia, | | | | | | unspecified type; | | | | | | Coronary artery | | | | | | disease involving | | | | | | [place] coronary | | | | | | artery of [place] | | | | | | heart with unstable | | | | | | angina pectoris | | | | | | ([facility]); Stress | | | | | | hyperglycemia; Iron | | | | | | deficiency anemia | | | | | | due to chronic blood | | | | | | loss; | | | | | | Hyperlipidemia, | | | | | | mixed | +--------+ + + + + Social [...] might be different f rom the original. [facility] DISCHARGE SUMMARY PATIENT NAME: Jaclyn Jackson : 1935: AGE: 81 y.o. ADMISSION DATE: 11/01/2016 DISCHARGE DATE: 11/06/2016 PRIMARY CARE: FLORA Morgan Patient ID: Jaclyn Jackson [id number] 81 y.o. 1935 5 days Admitting Physician: Christina Loo MD Discharge Diagnoses: Active Hospital Problems Diagnosis Date Noted Anemia 11/24/2013 Priority: High Hyperlipidemia, mixed Priority: High Coronary artery disease involving [place] coronary artery of [place] heart with unstable angina pectoris 11/02/2016 Stress [...] how and when to take each. aka: NORCO Unchanged Medications Details albuterol 90 mcg/puff inhaler [...] Consults: Cardiology: Dr. Suhail Torres Endocrinology: Flor Lynch [facility] Course: The patient proceeded to OR on [...] Why: at 11:00 am Contact information: [address] [facility] [address] Call Christina Loo MD. Specialty: Cardiothoracic Surgery Why: As needed, If symptoms worsen. Otherwise okay to follow up postop with Dr. Cevallos Contact information: [address] [facility] [id number] FLORA Morgan. Schedule an appointment as soon as possible for a visit in 2 weeks. Specialty: Physician International Representative Why: Primary care follow up after cardiac surgery Contact information: [address], [address] [place] [address] If patient has any further questions or concerns prior to above, instructed to call our off ice. [phone]. Time spent on discharge planning: less than [...] Mario London PA-C 11/06/2016 13:12 Cardiothoracic Surgery [facility] [address] [place], [place] [id number] Portions of this chart may have been created with [employer] voice recognition software. Occasi onal wrong-word or sound-alike substitutions may have occurred due to the inherent doe itations of voice recognition software. Please read the chart carefully and recognize, using context, where these substitutions have occurred. documented in this encounter Discharge Instructions Instructions Dominga Hernandez RN - 11/06/2016Formatting of this note might be different fro m the original. [facility] [...] ed help. Don t lift anything heavier [id number] for 4-6 weeks. Until approved by your [...] the hospital, begin with short wal ks ([id number]) at home. Go a little longer each [...] symptoms you had prior to surgery Fever oaghb763.0F New or spreading redness, swelling, drainage, or warmth at the incision site New or worsening shortness of breath Fainting Weight gain of more [id number] tx40ipqfr or more miow9cuacqg vo9voas(s) New or increasedswelling in your hands, feet, or ankles Pain that cannot be relieved or changes in the location, type, or severity of pain Fast or irregular pulse Unrelieved pain in your incision PHS Patient Laureano Jackson 1935 Valuables Dentures: None Vision - Corrective Lenses: None Hearing Aid: None Jewelry: None Clothing: Secured on Unit Other Valuables: None Other Valuables: Other (Comment) (green bag with clothes in belongings bag) Home Medications: None Responsible person(s) in the waiting room?: Mary - [phone] Patient Signature: Clinician/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 Prescriptions reviewed, pt to package pick up at [facility] pharmacy. Questions answered. Advised of follow up appointme nts and to schedule follow up with PCP. Pt given Mg citrate this am with multiple BM's. To s hower and change and DC home to [place] by car with daughter. Update: Pt showered, dressed. States that she has all belongings. WC transport placed to nh in doors. Daughter picked up meds at [...] PRIMARY HOSPITAL PROBLEM: Coronary artery disease involving [place] coronary artery of [place] heart with unstable miranda na pectoris (HCC) CHIEF COMPLAINT: CAD ASSESSMENT Anemia Assessment & Plan H/H 9.12/07 stable Hyperlipidemia, mixed Assessment & Plan Continue statin * Coronary artery disease involving [place] coronary artery of [place] heart with unstable an nayeli pectoris (HCC) Assessment & Plan POD #6 Coronary artery bypass grafting x3 (VERDUZCO-LAD, rSVG-Diag, rSVG-RCA) LVEF 65% prostoperatively. PLAN OK to dc to home follow up in [place] SUBJECTIVE DATA SUBJECTIVE: tired after having BM [...] PA- C - 11/06/2016 9:10 AM PDT [facility] Progress Note Pt. Name/Age/: Jaclyn Jackson 81 y.o. 1935 Med. Record Number: [id number] Date of admission: 11/01/2016 Hospital Day: 6 5 Days Post-Op Procedure: CABGx3 Date of Surgery: 11/01/16 Surgeon: Dr. Christina Loo MD. Anusha Flores PA-C assisting SUBJECTIVE Background History: 81 y.o. female with CAD admitted electively for above surgery Intraop findings: poor vein, composite graft from [facility] for diag; poor reop candidate. Nor mal [...] PLAN Principal Problem: Coronary artery disease involving [place] coronary artery of [place] heart with unstable an nayeli pectoris Active [...] Mario London PA-C 11/06/2016 9:10 Cardiothoracic Surgery [facility] [address] [place] [address] Portions of this chart may have been created with [employer] voice recognition software. Occasi onal wrong-word or sound-alike substitutions may have occurred due to the inherent doe itations of voice recognition software. Please read the chart carefully and recognize, using context, where these substitutions have occurred. Glenda Bradshaw LICSW - 11/05/2016 2:30 PM EUGENED/C Planning: Pt returning home with dtr in [...] PRIMARY HOSPITAL PROBLEM: Coronary artery disease involving [place] coronary artery of [place] heart with unstable miranda na pectoris (HCC) CHIEF COMPLAINT: Feeling well, no shortness of breath or chest pain ASSESSMENT Anemia Assessment & Plan H/H stable WBC trending down Oral Iron replacement? * Coronary artery disease involving [place] coronary artery of [place] heart with unstable an nayeli pectoris (HCC) [...] Portions of this chart were created with [employer] voice recognition software. Occasional wro ng-word or [...] feels quite well Follow-up can be in [place] from the cardiac standpoint They will talk with the surgeon regarding surgical follow-up and if it can be done locally or they need to come here. Suhail Flannery MD [facility] 11/05/2016 16:36 During this hospital visit, [...] might be differen t from the original. [facility] Daily Progress Note 11/05/2016 Pt. Name/Age/: Jaclyn Jackson 81 y.o. 1935 Med. Record Number: [id number] Date of admission: 11/01/2016 Hospital Day: 5 4 Days Post-Op LVEF: 60-70 Procedure: CABGx3 Date of Surgery: 11/01/16 Surgeon: Dr. Christina Loo MD. Anuhsa Flores PA-C assisting Interval Events Uneventful night. ASSESSMENT: POD# 4 S/P CABGx3 - Overall doing well, hemodynamics stable, needs BM, on min imal O2, plan home tomorrow to [place] with daughter in law. Neuro: --Hx TIA [...] Dispo: --Plan home with family tomorrow to [place] --Will need to f/u with [facility] in 1 month --Ok per cardiology to f/u with cards in [place] CURRENT PLAN Increase norvasc Change IV to [...] Earlene Bonilla PA-C 11/05/2016 7:30 Cardiothoracic Surgery [facility] [address] [place] [address] I have participated in the care of this patient and I have reviewed and agree with the pert inent clinical information with the following additions/exceptions: Continue diuresis. May be able to go home tomorrow. Electronically signed by: Joe Quinn MD, 11/05/2016 14:29 Zainab Leyva ARNP - 11/04/2016 11:24 AM PDTFormatting of this note might be different from the o riginal. PATIENT NAME: Jaclyn Jackson : 1935: AGE: 81 y.o. 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 -Continue Amlodipine, Aspirin, Statin, Metoprolol -ECG without acute changes PLAN Continue current medications Increase ambulation Follow up with Prepress Operator in [place] SUBJECTIVE DATA REVIEW OF SYSTEMS: CV: negative [...] Portions of this chart were created with [employer] voice recognition software. Occasional wro ng-word or [...] presentation. Followup: She wants her followup in [place] and that is fine by me. I am not sure if surgical fo llowup in [place] is acceptable. Suhail Flannery MD [facility] 11/04/2016 17:32 During this hospital visit, [...] Jackson DATE OF : 1935 MED RECORD: [id number] Pre-OP Dx Coronary artery disease Hypertension Dyslipidemia history of transient ischemic attack Hypothyroidism mild aortic regurgitation and calcified mitral annulus with calcium nodule in posterior mitral leaflet. Procedure 11/01/16 1. Coronary artery bypass surgery times 3, VERDUZCO to LAD, saphenous vein graft to diagonal, saphenous vein graft to right coronary artery. 2. Endoscopic vein harvest, left greater saphenous vein. SURGEON: Christina Loo MD LIDAR ANALYST: Anusha Flores PA-C SUBJECTIVE Sitting in chair. [...] reviewed RECENT SELECT LAB: Recent Labs Lab 11/04/16 0418 11/02/16 0211 10/31/16 1609 WBC 17.2* 19.6* [...] 7.46 7.47 PO2ART 113* 118* 116* 156* CDH3JQY 44* 47* 33 35 U2EHZNDT 95.2 95.6 95.7 96.8 BEART -- -- [...] regarding this --home ~2d Serene Castillo PA-C [facility] 11/04/2016, 8:02 I have participated [...] for glucose management after cardiac surgery, inclu ding rationale for temporary insulin infusion and subcutaneous [...] rashes History: Past Medical History: Diagnosis Date Anxiety May 2014 Arthritis Asthma 1960s Cataract Cervical [...] Essential hypertension Facet arthritis of lumbar region ([facility]) 08/24/2014 Foraminal stenosis of cervical region 07/25/2016 [...] CV LHC; Surgeon: Irina Simms MD; Location: [facility] CV LAB COLONOSCOPY 05/2002; 03/28/10 next due 03/2020 FOOT FRACTURE SURGERY Left 2004 HEMORRHOID SURGERY 8950-1548 Removal lower left nodules 2004 THYROIDECTOMY TONSILLECTOMY AND ADENOIDECTOMY 1955 UPPER GASTROINTESTINAL ENDOSCOPY 11/15/2013 EGD * IP RM: 428 * ; Laterality: N/A; Surgeon: Lauri Garrison MD; Location: [facility] MEDICAL PROCEDURE UNIT UPPER GASTROINTESTINAL ENDOSCOPY 11/04/2013 EGD IP 449; Laterality: N/A; Surgeon: Samm Pandya MD; Location: [facility] MEDICAL P ROCEDURE UNIT reports that she [...] Procedure Component Value Units Date/Time MRSA NAAT [[id number]] Collected: 10/31/16 1520 Order Status: Completed Lab Status: Final result Updated: 10/31/162233 Specimen: Respiratory from Nasal/Nose Specimen Source Nasal [...] Electronically signed by: Flor Lynch Diabetes team, [facility] [phone] Autumn, JOSE ALBERTO Joseph - 11/03/2016 10:37 AM PDT PATIENT NAME: Jaclyn Jackson : 1935: AGE: 81 y.o. 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 -Continue Amlodipine, Aspirin, statin, Metoprolol -ECG without acute changes PLAN Continue current medications Patient would like to follow up with cardiology in [place] SUBJECTIVE DATA REVIEW OF SYSTEMS: CV: negative [...] Portions of this chart were created with [employer] voice recognition software. 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 Suhail Flannery MD [facility] 11/03/2016 15:57 During this hospital visit, [...] MD - 11/03/2016 8:58 AM P DT [facility] HEART CARDIOTHORACIC SURGERY PROGRESS NOTE Pt. Name/Age/: Jaclyn Jackson 81 y.o. 1935 Med. Record Number: [id number] Date of admission: 11/01/2016 POD #2 Procedure: [...] cervical Cervical radiculopathy Coronary artery disease involving [place] coronary artery of [place] heart with unstable angina pectoris Stress hyperglycemia Electronically signed by: Otoniel Conroy PA-C Physician International Representative [facility] Cardiothoracic Surgery 11/03/2016 8:58 [facility] Addendum: Agree with above. Making good progress. Mando Calles MD u, Suhail washington MD - 11/02/2016 11:21 AM PDT [facility]: PATIENT NAME: Jaclyn Jackson : 1935: AGE: 81 y.o. ADMISSION DATE: 11/01/2016 Admitting Provider: Christina Loo MD Primary Provider: FLORA Morgan Hospital Day: Hospital Day: 2 LOS: 1 Code Status: Full Code Prepress Operator: Suhail Flannery MD [facility] DATE OF SERVICE: 11/02/2016 PRIMARY HOSPITAL PROBLEM: CABG for 3 VD from [facility] CHIEF COMPLAINT: Chest pain and nausea ASSESSMENT Discussion: Chest pain and nausea Will reassess with EKG, but seems incisional to me EKG looks fine, minimal change Labs look good, and overall she seems to be doing well CT tube are out, and NSR Anemia Assessment & Plan Actually looks good with 9.9 post op (11.7 prior). Coronary artery disease involving [place] coronary artery of [place] heart with unstable miranda na pectoris (HCC) [...] showing left jugular venous access an d [place] catheter and to the area of segmental right lower lobe arteries. Total number o f images: 1. IMPRESSION: Fluoroscopic assisted right jugular venous access with [place] c atheter. Signed by: Fredy Miranda Xr [...] Admit: 78 kg (172 lb) INTAKE/OUTPUT Date 11/01/16 07 - 11/02/16 0711/02/16 07 - 11/03/16 0700 Shift 8685-3520 5388-7173 24 Hour Total 4725-7846 1463-2602 24 Hour Total I N T A [...] note and vitals reviewed. Suhail Flannery MD [facility] 11/02/2016 11:21 eeves, Mando willis MD - 11/02/2016 7:46 AM PDT [facility] HEART CARDIOTHORACIC SURGERY PROGRESS NOTE Pt. Name/Age/: Jaclyn Jackson 81 y.o. 1935 Med. Record Number: [id number] Date of admission: 11/01/2016 POD 1 Procedure: [...] F) Intake/Output Summary (Last 24 hours) at 11/02/16 0746 Last data filed at 11/02/16 0600 Gross per 24 hour Intake 2687.5 ml [...] (11/02/16 0736) insulin regular 1.5 Units/hr (11/02/16 0600) nitroglycerin in dextrose 5 mcg/min (11/02/16 0700) [...] -Levothyroxine 50 g daily Chronic pain -Takes [place] 7.5 and Voltaren ointment at home History [...] Electronically signed by: Amna Benavides PA-C Physician International Representative [facility] Cardiothoracic Surgery 11/02/2016 7:46 [facility] Addendum: Doing well though difficult night Agree with above Ready for transfer Mando Calles MD Lindsey Gonsalves RN - 11/02/2016 6:00 AM PDTUO dropped to 5/hr this hr. CVP 7-10. Albumin 250cc given.Electron ically signed by Lindsey Heart RN at 11/02/2016 6:43 AM Lindsey Gonsalves [...] Sanchez LICSW - 11/01/2016 6:00 PM PDT Lingo Cleaner: Pt resides in [place], [place]. She has Medicare coverage. Will follow progress post op and any other therapy recommendations for discharge planning. Semaj Keith - 11/01/2016 2:22 PM PDTPatigabriel nt arrived to room 260, vitals stable. Sedated. Reported received. mna Benavides PA-C - 11/01/2016 1:26 PM PDT [facility] Immediate Post-Operative Note Subjective Pt. Name/Age/: Jaclyn Jackson 81 y.o. 1935 Med. Record Number: [id number] Date of admission: 11/01/2016 Procedure: Coronary artery [...] Results Component Value Date PHART 7.47 11/01/2016 VXC4AZT 36 11/01/2016 PO2ART 290 11/01/2016 R8VCEZOTV 13.9 (L) 11/01/2016 GTZ9ESB 26.0 11/01/2016 BEART 2.6 (H) 11/01/2016 HGB [...] -Levothyroxine 50 g daily Chronic pain -Takes [place] 7.5 and Voltaren ointment at home History of TIA -no neuro deficits upon admission History of asthma -uses albuterol at home Electronically signed by: Amna Benavides PA-C 11/01/2016 13:26 Cardiothoracic Surgery [facility] [address] [place] [address] Portions of this chart may have been created with [employer] voice recognition software. Occasi onal wrong-word or [...] | | | | | | [place] | | | | | | [id number] | | | | | | | | +--------+---------+ + + + | 11/21/ | Office | Cardiology | Yesi, | | 2019 | Visit | | JOSE ALBERTO Linder [address] | | | | | [place], | | | | | | [place] [address] | | | | | | [phone] | | | | | | | [...] Occurrences starting | | | | | [place] coronary | 11/04/2016 until | | | | | artery of [place] | 11/04/2016 | | | | | [...] involving | | | | | | [place] coronary | | | | | | artery of [place] | | | | | | heart [...] | | | | | | vessel, [place] or | | | | | | [...] whether | | | | | | [place] or | | | | | | [...] whether | | | | | | [place] or | | | | | | [...] whether | | | | | | [place] or | | | | | | [...] whether | | | | | | [place] or | | | | | | [...] whether | | | | | | [place] or | | | | | | [...] whether | | | | | | [place] or | | | | | | [...] whether | | | | | | [place] or | | | | | | [...] + + | Glucose | 114 (H)Comment: [place] | 65 - 99 mg/dL | [facility] | | | | Diabetes Association | [...] SACRED | [address] | [place] [address] | | | [facility] | [...] + | [facility] | [address] | [place] [address] | | | [facility] | | | | | LABORATORY | [...] [facility] | | | | | | RUBEN | | | [...] + + | [facility] | [address] | [place] [address] | | | [facility] | | | | | LABORATORY [...] + + | [facility]IO MIRANDA | [address] | [place] [address] | | | [facility] | | | | | LABORATORY | [...] + + | [facility] | [address] | [place] [address] | | | [facility] | [...] + + | Glucose | 115 (H)Comment: [place] | 65 - 99 mg/dL | [facility] | | | | Diabetes Association | [...] + | [facility] | [address] | [place] [address] | | | [facility] | | | | | LABORATORY | [...] + + | [facility]AR[facility] MIRANDA | [address] | [place] [address] | | | [facility] | | | | | LABORATORY | [...] | [address] | [place] [address] | | | [facility] | | | | | LABORATORY [...] | [address] | [place] [address] | | | [facility] | | | | | [...] + | OLEGARIO MIRANDA | [address] | [place] [address] | | | [facility] | | | | | LABORATORY | [...] + + | [facility]ARIO MIRANDA | [address] | [place] [address] | | | [facility] | [...] | TRACEMASTER | | Duration:140 msP Horizontal [place]:-43 degP Front [place]:60 degQ Onset:514 | | | msQRSD Interval:78 msQT Interval:384 msQTcB:426 msQTcF:412 msQRS | | | Horizontal [place]:3 degQRS [place]:21 degI-40 Horizontal [place]:-8 degI-40 | | | Front [place]:15 degT-40 Horizontal [place]:-6 degT-40 Front [place]:22 degT | | | Horizontal [place]:44 degT Wave [place]:12 degS-T Horizontal [place]:42 degS-T | | | Front [place]:22 degSeverity:- BORDERLINE ECG -INTERP:SINUS | | | RHYTHMINTERP:PROBABLE LEFT ATRIAL ABNORMALITYElectronically signed by: | | | PATRICK BURKETT 11-09-2016 13:17:14 | | |QTcB:426 ms | | |QTcF:412 ms | | |QRS Horizontal [place]:3 deg | | |QRS [place]:21 deg | | |I-40 Horizontal [place]:-8 deg | | |I-40 Front [place]:15 deg | | |T-40 Horizontal [place]:-6 deg | | |T-40 Front [place]:22 deg | | |T Horizontal [place]:44 deg | | |T Wave [place]:12 deg | | |S-T Horizontal [place]:42 deg | | |S-T Front [place]:22 deg | | |Severity:- BORDERLINE ECG - | | |INTERP:SINUS RHYTHM | | |INTERP:PROBABLE LEFT ATRIAL ABNORMALITY | | |Electronically signed by: PATRICK BURKETT 11-09-2016 13:17:14 | | + + + + + + + + | Performing | Address | City/State/Zipcode | Phone Number | | Organization | | | | + + + + + | [facility] | [address] | [place] [address] | [phone] | + + + + + POC Glucose (11/02/2016 11:24 AM PDT) + +-------+ + + + | Component | Value | Ref Range | Performed | Pathologist | | | | | At | Signature | + +-------+ + + + | Glucose, | 91 | 65 - 99 mg/dL | [facility] [...] + | [facility] | [address] | [place] [address] | | | [facility] | [...] + | [facility] | [address] | [place] [address] | | | [facility] | | | | | LABORATORY | [...] + + | [facility] MIRAN[facility] | [address] | [place] [address] | | | [facility] | | | | | LABORATORY | [...] | [address] | [place] [address] | | | [facility] | | | | | LABORATORY [...] | [address] | [place] [address] | | | [facility] | | | | | [...] + | MARAHLIBERTADGabriel MIRANDA | [address] | [place] [address] | | | [facility] | | | | | LABORATORY | [...] + + | OLEGARIO MIRANDA | [address] | [place] [address] | | | [facility] | | | | | [...] SACRED | [address] | [place] [address] | | | [facility] | | | | | LABORATORY [...] + + | [facility] | [address] | [place] [address] | | | [facility] | | | | | [...] + | [facility] | [address] | [place] [address] | | | [facility] | | | | | LABORATORY [...] + + | Glucose | 131 (H)Comment: [place] | 65 - 99 mg/dL | [facility] | | | | Diabetes Association | [...] SACRED | [address] | [place] [address] | | | [facility] | | | | | [...] + + | MARAHLIBERTADGabriel GRACEDRU | [address] | [place] [address] | | | [facility] | | | | | LABORATORY | [...] + + | Zoltan Macedo Results In 11/02/2016 2:35 AM PDT | [...] + | [facility] | [address] | [place] [address] | | | [facility] | [...] | [address] | [place] [address] | | | [facility] | [...] + + | OLEGARIO MIRANDA | [address] | [place] [address] | | | [facility] | | | | | LABORATORY | [...] + + | [facility] | [address] | [place] [address] | | | [facility] | | | | | LABORATORY [...] SACRED | [address] | [place] [address] | | | [facility] | | | | | LABORATORY [...] + + + + + | [facility] | [address] | [place] [address] | | | [facility] | | | | | LABORATORY | [...] + + | OLEGARIO MIRANDA | [address] | [place] [address] | | | [facility] | | | | | LABORATORY | [...] + | [facility] | [address] | [place] [address] | | | [facility] | [...] + | [facility] | [address] | [place] [address] | | | [facility] | | | | | LABORATORY | [...] + + | OLEGARIO MIRANDA | [address] | [place] [address] | | | [facility] | | | | | LABORATORY [...] + + | OLEGARIO MIRANDA | [address] | [place] [address] | | | [facility] | | | | | LABORATORY | [...] Report Patient | | | Name: JACLYN JACKSONJAQUELINE: [id number] | | | Study Date: 11/01/2016DOB: 1935 | | | Gender: FemaleAge: 81 yrs | | | [facility] POOLReason For | | | Study: intraop CABG,SCA [...] central AI, no , trace TR, trace OH.5. Normal aorta other than mild | | [...] |Ordering Physician: Christina Loo MD | | |Security Operations Center Operator: Fredy Almaguer MD | | | | | + + + + + | Procedure Note | + + | Remington, Rad Results In - 11/01/2016 2:28 PM PDT | | Adult Intra-Op | | ORA Report | | | | Patient Name: JACLYN JACKSON | | Study Date: 11/01/2016 | | : 1935 Gender: Female | | Age: 81 yrs Location: [facility] MAIN OR | | OOL | | Reason For [...] central AI, no , trace TR, trace [place]. | | 5. Normal aorta other than [...] Ordering Physician: Christina Loo MD | | Security Operations Center Operator: Fredy Almaguer MD | + + Potassium [...] + | [facility] | [address] | [place] [address] | | | [facility] | [...] + + | [facility]ARIO MIRANDA | [address] | [place] [address] | | | [facility] | [...] + | [facility] | [address] | [place] [address] | | | [facility] | | | | | LABORATORY | [...] + + | [facility] | [address] | [place] [address] | | | [facility] | | | | | [...] + + | [facility] | [address] | [place] [address] | | | [facility] | [...] + | OLEGARIO MIRANDA | [address] | [place] [address] | | | [facility] | | | | | LABORATORY | [...] % | [facility] | | | | [id number] | | [facility] | | | | [...] + + | [facility] MIRANDA | [address] | [place] [address] | | | [facility] | [...] | [facility] | | Duration:148 msP Horizontal [place]:6 degP Front [place]:72 degQ Onset:512 | | | msQRSD Interval:80 msQT Interval:452 msQTcB:463 msQTcF:459 msQRS | | | Horizontal [place]:16 degQRS [place]:56 degI-40 Horizontal [place]:49 degI-40 | | | Front [place]:45 degT-40 Horizontal [place]:-8 degT-40 Front [place]:59 degT | | | Horizontal [place]:66 degT Wave [place]:64 degS-T Horizontal [place]:66 degS-T | | | Front [place]:38 degSeverity:- NORMAL ECG -INTERP:SINUS | | | RHYTHMElectronically signed by: Ramin PEREZ 11-01-2016 16:20:01 | | |QT Interval:452 ms | | |QTcB:463 ms | | |QTcF:459 ms | | |QRS Horizontal [place]:16 deg | | |QRS [place]:56 deg | | |I-40 Horizontal [place]:49 deg | | |I-40 Front [place]:45 deg | | |T-40 Horizontal [place]:-8 deg | | |T-40 Front [place]:59 deg | | |T Horizontal [place]:66 deg | | |T Wave [place]:64 deg | | |S-T Horizontal [place]:66 deg | | |S-T Front [place]:38 deg | | |Severity:- NORMAL ECG - | | |INTERP:SINUS RHYTHM | | |Electronically signed by: Ramin PEREZ 11-01-2016 16:20:01 | | + + + + + + + + | Performing | Address | City/State/Zipcode | Phone Number | | Organization | | | | + + + + + | [facility] | [address] | [place] [address] | [phone] | + + + + + XR [...] + + | Zoltan Macedo Results In - 11/01/2016 2:36 PM PDT [...] + + | OLEGARIO MIRANDA | [address] | [place] [address] | | | [facility] | | | | | LABORATORY | [...] HEART | | | | DR Tommie PALMA | | MEDICAL | | | [...] + | [facility] MIRAN[facility] | [address] | [place] [address] | | | [facility] | [...] + + | OLEGARIO MIRANDA | [address] | [place] [address] | | | [facility] | | | | | LABORATORY | [...] HEART | | | | DR Tommie PALMA | | MEDICAL | | | [...] + | [facility] | [address] | [place] [address] | | | [facility] | | | | | LABORATORY [...] + + | OLEGARIO MIRANDA | [address] | [place] [address] | | | [facility] | | | | | LABORATORY | [...] + + | OLEGARIO MIRANDA | [address] | [place] [address] | | | [facility] | | | | | LABORATORY | [...] | | Arterial | Comment: | | SACR[facility] | | | | Results delivered to: [...] + | [facility] | [address] | [place] [address] | | | [facility] | [...] | [address] | [place] [address] | | | [facility] | | | | | [...] + | [facility] | [address] | [place] [address] | | | [facility] | | | | | LABORATORY [...] + + | OLEGAR[facility] MIRANDA | [address] | [place] [address] | | | [facility] | [...] + | [facility] | [address] | [place] [address] | | | [facility] | [...] + + | OLEGARIO MIRANDA | [address] | [place] [address] | | | [facility] | | | | | LABORATORY | [...] + + | OLEGARIO MIRANDA | [address] | [place] [address] | | | [facility] | | | | | LABORATORY | [...] | | | jugular venous access and [place] catheter and to the area of | | | segmental right lower lobe arteries. Total number of images: 1. | | | IMPRESSION: Fluoroscopic assisted right jugular venous access with | | | [place] catheter. Signed by: Fredy Miranda | | + + + + + | Procedure Note | + + | Zoltan Macedo Results In - 11/01/2016 10:30 AM PDT | | | | FLUOROSCOPIC ASSISTED CENTRAL LINE | | | | CLINICAL INFORMATION: | | Intraoperative fluoroscopic assisted central line placement. | | | | FINDINGS: | | 1 minute 37 seconds of fluoroscopy was utilized by Dr. Loo | | during operative procedure. | | | | Single image showing left jugular venous access and [place] | | catheter and to the area of segmental right lower lobe arteries. | | | | Total number of images: 1. | | | | IMPRESSION: | | Fluoroscopic assisted right jugular venous access with [place] | | catheter. | | | | [...] + + | [facility] | [address] | [place] [address] | | | [facility] | | | | | LABORATORY [...] + | MARAHLIBERTADGabriel MIRANDA | [address] | [place] [address] | | | [facility] | | | | | LABORATORY | [...] + | [facility] | [address] | [place] [address] | | | [facility] | [...] + | Remington, Rad Results In - 10/31/2016 5:13 PM PDT | | | [...] - 1.030 | [facility] | | | [place] | | | [facility] | | | [...] + + | OLEGAR[facility] MIRANDA | [address] | [place] [address] | | | [facility] | | | | | LABORATORY | [...] | | | | | | LAB [place] | | | | | | [facility] | | | | | | [facility] | | | | | [facility] | | | | | | [facility] | | + + + + + + | Rh Type | Positive | | [facility] | | | | | | LAB [place] | | | | | | [facility] | | | | | | [facility] | | | | | | [facility] | | | | | | [facility] | | + + + + + + | Antibody | NegativeComment: Patient | | [facility] | | | Screen | is remote crossmatch | | LAB [place] | | | | eligible | | [...] + + + | Specimen Expiration Date: [id number] | [facility] | | | [place] [facility] | | | [facility] | | | [facility] | + + + + + + + + | Performing | Address | City/State/Zipcode | Phone Number | | Organization | | | | + + + + + | [facility] | [address] | [place] [address] | [phone] | | [place] [facility] | | | | | [facility] [...] + + | [facility] MIRAN[facility] | [address] | [place] [address] | | | [facility] | [...] + + | OLEGARIO MIRANDA | [address] | [place] [address] | | | [facility] | | | | | LABORATORY | | | | + + + + + Hemoglobin A1C (10/31/2016 4:09 PM PDT) + + + + + + | Component | Value | Ref Range | Performed | Pathologist | | | | | At | Signature | + + + + + + | Hemoglobin | 5.4Comment: The [place] | 4.3 - 6.1 % | [facility] | | | A1c | Diabetes Association | | [facility] | | | | considers a result [...] + + | [facility] | [address] | [place] [address] | | | [facility] | | | | | LABORATORY | [...] | 0.10 | 0.00 - 0.10 | [facility] | | | Basophils | | K/uL [...] + + | [facility]AR[facility] MIRAN[facility] | [address] | [place] [address] | | | [facility] | | | | | LABORATORY [...] (H) | 21 - 28 mmol/L | [facility] | | | | | | [facility] | | | | | | [facility] | | | | | | MEDICAL | | | | | | CENTER | | | | | | LABORATORY | | + + + + + + | Glucose | 93Comment: [place] | 65 - 99 mg/dL | [place] | | | | Diabetes Association | [...] + + | OLEGARIO MIRANDA | [address] | [place] [address] | | | [facility] | | | | | LABORATORY | [...] | [facility]ER | | Duration:148 msP Horizontal [place]:24 degP Front [place]:69 degQ Onset:512 | | | msQRSD Interval:84 msQT Interval:424 msQTcB:406 msQTcF:412 msQRS | | | Horizontal [place]:4 degQRS [place]:36 degI-40 Horizontal [place]: degI-40 | | | Front [place]:30 degT-40 Horizontal [place]:-7 degT-40 Front [place]:36 degT | | | Horizontal [place]:60 degT Wave [place]:61 degS-T Horizontal [place]:108 degS-T | | | Front [place]:89 degSeverity:- ABNORMAL ECG -INTERP:SINUS | | | RHYTHMINTERP:CONSIDER LEFT VENTRICULAR HYPERTROPHYElectronically | | | signed by: Ramin PEREZ 11-01-2016 06:15:12 | | |QTcB:406 ms | | |QTcF:412 ms | | |QRS Horizontal [place]:4 deg | | |QRS [place]:36 deg | | |I-40 Horizontal [place]: deg | | |I-40 Front [place]:30 deg | | |T-40 Horizontal [place]:-7 deg | | |T-40 Front [place]:36 deg | | |T Horizontal [place]:60 deg | | |T Wave [place]:61 deg | | |S-T Horizontal [place]:108 deg | | |S-T Front [place]:89 deg | | |Severity:- ABNORMAL ECG - | | |INTERP:SINUS RHYTHM | | |INTERP:CONSIDER LEFT VENTRICULAR HYPERTROPHY | | |Electronically signed by: Ramin PEREZ 11-01-2016 06:15:12 | | + + + + + + + + | Performing | Address | City/State/Zipcode | Phone Number | | Organization | | | | + + + + + | [facility] | [address] | [place] [address] | [phone] | + + + + + MRSA [...] + + | [facility] MIRAN[facility] | [address] 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 (HCC) - Primary | + + | Coronary artery disease, angina presence unspecified, unspecified vessel or lesion | | type, unspecified whether [place] or transplanted heart | + + | Valvular heart disease Endocarditis, valve unspecified, unspecified cause | + + | Anemia, unspecified type | + + | Stress hyperglycemia Other abnormal blood chemistry | + + | Iron deficiency anemia due to chronic blood loss Iron deficiency anemia secondary to | | blood loss (chronic) | + + | Hyperlipidemia, mixed Mixed hyperlipidemia | + + documented in this encounter [...] | | | | Starting 11/01/16 at 1414, | | | | | [...] | | +---+---+ + +-------+ +------+---+---+ | amLODIPine (NORVASC) tablet 5 | Given | 11/05/19 | 5 mg | | | | mg 5 mg, Oral, DAILY, First dose | | 17 8:46 | | | | | on 11/02/16 at 1700, Give | | AM PDT | | | | | first dose now, | | | | | | + +-------+ +------+---+---+ +-------+ +------+---+---+ | Given | 11/04/19 | 5 mg | | | | | 17 8:02 | | | | | | AM PDT | | | | +-------+ +------+---+---+ | Given | 11/03/19 | 5 mg | | | | | 17 4:46 | | | | | | PM PDT | | | | +-------+ +------+---+---+ [...] +---+ +---+---+ | | | +---+---+ + + + +---+ +---+ | balanced electrolytes in water | Rate/Dos | 11/03/19 | | 30 mL/hr | | | (PLASMALYTE-148/NORMOSOL-R) | e Verify | 17 4:00 | | | | | infusion at 30 mL/hr, | | PM PDT | | | | | Intravenous, CONTINUOUS, Starting | | | | | | | 11/01/16 at 1430, | | | | | | | Post-op/Phase II | | | | | | + + + +---+ +---+ + + +---+ +---+ | Rate/Dose Verify | 11/03/19 | | 30 mL/hr | | | | 17 3:00 | | | | | | PM PDT | | | | + + +---+ +---+ | Rate/Dose Verify | 11/03/19 | | 30 mL/hr | | | | 17 2:00 | | | | | | PM PDT | | | | + + +---+ +---+ +---+---+ | | | +---+---+ + +---------+ +-----+-------+---+ | ceFAZolin in saline (ANCEF) | New Bag | 11/03/19 | 2 g | 100 | | | IVPB 2 g 2 g, Intravenous, | | 17 3:55 | | mL/hr | | | Administer over 30 Minutes, EVERY | | AM PDT | | | | | 8 HOURS INTERVAL, First dose on | | | | | | | 11/01/16 at 2000, For 2 doses, | | | | | | | Keep in refrigerator., | | | | | | | Post-op/Phase II, Indications: | | | | | | | Surgical Prophylaxis | | | | | | + +---------+ +-----+-------+---+ +---------+ +-----+-------+---+ | New Bag | 11/02/19 | 2 g | 100 | | | | 17 7:52 | | mL/hr | | | | PM PDT | | | | +---------+ +-----+-------+---+ +---+---+ | | | +---+---+ + +-------+ +--------+---+---+ | docusate sodium (COLACE) | Given | 11/06/19 | 100 mg | | | | capsule 100 mg 100 mg, Oral, 2 | | 17 12:21 | | | | | TIMES DAILY PRN, Constipation, | | AM PDT | | | | | Starting Fri11/01/16 at 1414, | | | | | | | First line agent for | | | | | | | constipation, | | | | | | + +-------+ +--------+---+---+ +-------+ +--------+---+---+ | Given | 11/05/19 | 100 mg | | | | | 17 6:48 | | | | | | AM [...] +---+---+ + +-------+ +-------+---+---+ | famotidine (PEPCID) injection | Given | 11/03/19 | 20 mg | | | | 20 mg 20 mg, Intravenous, 2 | | 17 8:42 | | | | | TIMES DAILY, First dose on Fri | | PM PDT | | | | | 11/01/16 at 1430, While NPO Prior | | | | | | | to administration, prepare a 20 | | | | | | | mg dose by diluting 2 mL of | | | | | | | famotidine 10 mg/mL to 10 mL with | | | | | | | normal saline., Post-op/Phase II | | | | | | + [...] | | | +---+---+ + + + +--------+ +---+ | fentaNYL in saline 5 mcg/mL | Rate/Dos | 11/03/19 | 60 | 12 mL/hr | | | infusion 25-250 mcg/hr (5-50 | e Verify | 17 12:00 | mcg/hr | | | | mL/hr), at 5-50 mL/hr, | | PM PDT | | | | | Intravenous, TITRATED, Starting | | | | | | | 11/01/16 at 1430, Initial | | | | | | | dose: 25 mcg/hr, Goal: RASS -2 to | | | | | | | 0, Post-op/Phase II | | | | | | + + + +--------+ +---+ + + +--------+ +---+ | Rate/Dose Verify | 11/03/19 | 60 | 12 mL/hr | | | | 17 11:00 | mcg/hr | | | | | AM PDT | | | | + + +--------+ +---+ | Rate/Dose Change | 11/03/19 | 60 | 12 mL/hr | | | | 17 10:00 | mcg/hr | | | | | AM PDT | | | | + + +--------+ +---+ +---+---+ | | | +---+---+ + +-------+ +-------+---+---+ | furosemide (LASIX) injection 40 | Given | 11/05/19 | 40 mg | | | | mg 40 mg, Intravenous, ONCE, | | 17 8:43 | | | | | 11/04/16 at 0830, For 1 dose, | | AM PDT | | | | | Protect from light, | | | | | | + +-------+ +-------+---+---+ +---+---+ | | | +---+---+ + +-------+ +-------+---+---+ | furosemide (LASIX) injection 40 | Given | 11/06/19 | 40 mg | | | | mg 40 mg, Intravenous, ONCE, | | 17 3:10 | | | | | 11/05/16 at 1230, For 1 dose, | | PM PDT | | | | | Protect from light, | | | | | | + +-------+ +-------+---+---+ +---+---+ | | | +---+---+ + +-------+ +-------+---+---+ | furosemide (LASIX) tablet 20 mg | Given | 11/07/19 | 20 mg | | | | 20 mg, Oral, DAILY, First dose | | 17 8:20 | | | | | on e 11/05/16 at 0900 | | AM PDT | | | [...] | | | (after last modification) on [facility] | | | 11/07/16 at 0900, For 1 dose | | + +---+ | | | + +---+ + +-------+ +--------+---+---+ | HYDROcodone-acetaminophen | Given | 11/03/19 | 15 mLs | | | | (HYCET) 7.5-325 mg/15 mL liquid | | 17 12:18 | | | | | 10-15 mL 10-15 mL, Oral, EVERY 4 | | AM PDT | | | | | HOURS PRN, Pain, Starting Fri | | | | | | | 11/01/16 at 1415 | | | | | | + +-------+ +--------+---+---+ +-------+ +--------+---+---+ | Given | 11/02/19 | 15 mLs | | | | | 17 5:57 | | | | | | PM PDT | | | | +-------+ +--------+---+---+ +---+---+ | | | +---+---+ + +-------+ + +---+---+ | HYDROcodone-acetaminophen | Given | 11/05/19 | 1 tablet | | | | (NORCO) 10-325 mg per tablet 1-2 | | 17 9:28 | | | | | tablet 1-2 tablet, Oral, EVERY 4 | | PM PDT | | | | | HOURS PRN, Pain, Starting Sun | | | | | | | 11/03/16 at 2101 | | | | | | + +-------+ + +---+---+ +---+---+ | | | +---+---+ + +-------+ [...] | | | | +-------+ + +---+---+ +---+---+ | | | +---+---+ + +-------+ +---------+---+---+ | HYDROcodone-acetaminophen | Given | 11/04/19 | 1.5 | | | | (NORCO) 5-325 mg per tablet 1-1.5 | | 17 5:54 | tablets | | | | tablet 1-1.5 tablet, Oral, | | PM PDT | | | | | EVERY 4 HOURS PRN, Pain, Starting | | | | | | | 11/02/16 at 0039 | | | | | | + +-------+ +---------+---+---+ +-------+ +---------+---+---+ | Given | 11/04/19 | 1.5 | | | | | 17 8:29 | tablets | | | | | AM PDT | | | | +-------+ +---------+---+---+ | Given | 11/04/19 | 1.5 | | | | | 17 4:17 | tablets | | | | | AM PDT | | | | +-------+ +---------+---+---+ +---+---+ | | | +---+---+ + +-------+ + +---+---+ | HYDROcodone-acetaminophen | Given | 11/05/19 | 1 tablet | | | | (NORCO) 5-325 mg per tablet 1-1.5 | | 17 5:45 | | | | | tablet 1-1.5 tablet, Oral, | | PM PDT | | | | | EVERY 4 HOURS PRN, Pain, Starting | | | | | | | 11/03/16 at 2101 | | | | | | + +-------+ + +---+---+ +-------+ + +---+---+ | Given | 11/05/19 | 1 tablet | | | | | 17 12:59 | | | | | | PM PDT | | | | +-------+ + +---+---+ | Given | 11/05/19 | 1 tablet | | | | | 17 8:51 | | | | | | AM PDT | | | | +-------+ + +---+---+ +---+---+ | | | +---+---+ + +-------+ + +---+---+ | HYDROcodone-acetaminophen | Given | 11/04/19 | 1 tablet | | | | (NORCO) 7.5-325 mg per tablet 1-2 | | 17 9:47 | | | | | tablet 1-2 tablet, Oral, EVERY | | PM PDT | | | | | 4 HOURS PRN, Pain, Starting Sun | | | | | | | 11/03/16 at 2101 | | | | | | + +-------+ + +---+---+ +---+---+ | | | +---+---+ + +-------+ + +---+ + | insulin glargine (LANTUS) 100 | Given | 11/03/19 | 12 Units | | Arm-Righ | | units/mL injection (vial) 12 | | 17 8:59 | | | t Upper | | Units 12 Units, Subcutaneous, | | AM PDT | | | | | ONCE, 11/02/16 at 0715, For 1 | | | | | | | dose, For subcutaneous use only. | | | | | | | Basal (long acting) insulin., | | | | | | + +-------+ + +---+ + +---+---+ | | | +---+---+ + + + + +-------+---+ | insulin regular (novoLIN R) 100 | Rate/Dos | 11/03/19 | 1.2 | 1.2 | | | units in 100 mL NS infusion | e Verify | 17 10:00 | Units/hr | mL/hr | | | (open heart protocol) 0-140.8 | | AM PDT | | | | | Units/hr (0-140.8 mL/hr), at | | | | | | | 0-140.8 mL/hr, Intravenous, | | | | | | | TITRATED, Starting 11/01/16 at | | | | | | | 1445, See link for Heart | | | | | | | Columnar Insulin Infusion (on | | | | | | | MAR) and Heart surgery insulin | | | | | | | infusion management order for | | | | | | | administration instructions., | | | | | | + + + + +-------+---+ + + + +-------+---+ | Rate/Dose Change | 11/03/19 | 1.2 | 1.2 | | | | 17 9:00 | Units/hr | mL/hr | | | | AM PDT | | | | + + + +-------+---+ | Rate/Dose Change | 11/03/19 | 1.3 | 1.3 | | | | 17 8:00 | Units/hr | mL/hr | | | | AM PDT | | | | + + + +-------+---+ + +---+ | | | + +---+ [...] | | +---+---+ + +-------+ +---------+---+---+ | magnesium citrate liquid 300 mL | Given | 11/07/19 | 300 mLs | | | | 300 mL, Oral, ONCE, Fri11/06/16 | | 17 9:22 | | | | | at 0930, For 1 dose | | AM PDT | | | | + +-------+ +---------+---+---+ + +---+ | | | + +---+ | menthol (HALLS COUGH DROP) | | | lozenge 1 lozenge 1 lozenge, | | | Buccal, EVERY 2 HOURS PRN, Sore | | | Throat, Starting 11/02/16 at | | | 0100 | | + +---+ | | | + +---+ + +-------+ +-------+---+---+ | metoprolol tartrate (LOPRESSOR) | Given | 11/07/19 | 25 mg | | | | [...] +---+---+ | | | +---+---+ + +-------+ +---+---+---+ | zaqykghi-rsnhlblqo-kjibjmfdxe | Given | 11/03/19 | | | | | (NEOSPORIN) 400-5-5000 ointment | | 17 4:48 | | | | | Starting 11/02/16 at 1644, For | | PM PDT | | | | | 1 Fletcher thayer Aleksandr : | | | | | | | martha [place], | | | | | | + +-------+ +---+---+---+ +---+---+ | | | +---+---+ + + [...] | 4 mg 4 mg, Intravenous, EVERY 6 | | 17 11:21 | | | | | HOURS PRN, Nausea, Vomiting, | | AM PDT | | | | | Starting 11/01/16 at 1414, | | | | | [...] +------+---+---+ +---+---+ | | | +---+---+ + + + +---------+---------+---+ | phenylephrine (TAE-SYNEPHRINE) | Rate/Dos | 11/03/19 | 15 | 9 mL/hr | | | 100 mcg/mL in 500 mL NS infusion | e Verify | 17 2:00 | mcg/min | | | | 0-260 mcg/min (0-156 mL/hr), at | | AM PDT | | | | | 0-156 mL/hr, Intravenous, | | | | | | | TITRATED, Starting 11/01/16 at | | | | | | | 1430, Initial dose: 100 mcg/min, | | | | | | | Goal: MAP 65 and greater, SBP | | | | | | | greater than 90 | | | | | | + + + +---------+---------+---+ + + +---------+---------+---+ | Rate/Dose Verify | 11/03/19 | 15 | 9 mL/hr | | | | 17 1:00 | mcg/min | | | | | AM PDT | | | | + + +---------+---------+---+ | Rate/Dose Verify | 11/03/19 | 15 | 9 mL/hr | | | | 17 12:00 | mcg/min | | | | | AM PDT [...] potassium chloride (K-DUR) ER | Given | 11/06/19 | 20 mEq | | | | tablet 20 mEq 20 mEq, Oral, 2 | | 17 8:36 | | | | | TIMES DAILY, First dose on Mon | | AM PDT | | | | | 11/04/16 at 0900, For 3 doses | | | | | | + +-------+ +--------+---+---+ +-------+ +--------+---+---+ | Given | 11/05/19 | 20 mEq | | | | | 17 8:38 | | | | | | PM PDT | | | | +-------+ +--------+---+---+ | Given | 11/05/19 | 20 mEq | | | | | 17 8:46 | | | | | | AM PDT | | | | +-------+ +--------+---+---+ +---+---+ | | | +---+---+ + +-------+ +--------+---+---+ | potassium chloride (K-DUR) ER | Given | 11/06/19 | 20 mEq | | | | tablet 20 mEq 20 mEq, Oral, | | 17 3:10 | | | | | ONCE, Neel 11/05/16 at 1230, For 1 | | PM PDT | | | | | dose | | | | | | + +-------+ +--------+---+---+ +---+---+ | | | +---+---+ + +-------+ +--------+---+---+ | potassium chloride (K-DUR) ER | Given | 11/07/19 | 20 mEq | | | | tablet 20 mEq 20 mEq, Oral, | | 17 2:38 | | | | | TIMES DAILY, First dose on Fri | | PM PDT | | | | | 11/06/16 at 1330, For 3 days | | | | | | + +-------+ +--------+---+---+ +---+---+ | | | +---+---+ documented in this encounter
--- OUTSIDE RECORDS SUMMARY | ~2019-04-12 | XMS | Encounter Summary ---
Demographics + + + | Address | [address] | | | [place] [address] | + + + | Home Phone | | + + + | Preferred Language | Unknown | + + + | Marital Status | Single | + + + | Hindu Affiliation | Unknown | + + + | Race | Unknown | + + + | Ethnic Group | Other Race | + + + Author + + + | Author | [facility] | + + + | Organization | [facility] | + + + | Address | Unknown | + + + | Phone | Unavailable | + + + Support + + +---------+ + | Name | Relationship | Address | Phone | + + +---------+ + | None None | ECON | Unknown | Unavailable | + + +---------+ + Care Team Providers + +------+ + | Care Banquet Chef Name | Role | Phone | + +------+ + PCP | Unavailable | + +------+ + Encounter Details +--------+ + + + + | Date | Type | Department | Care Team | Description | +--------+ + + + + | 04/03/ | Ancillary | Registration [address] | Matthew Montero MD | | | 2004 | Registratio | [address] | | | | | [address] | [address] Mailcode: [address] | | | | | | [place], [place] | | | | | | [address] | | | | | | [phone] | | | +--------+ + + + + Social History + +-------+ +--------+------+ | Tobacco Use | Types | Packs/Day | Years | Date | | | | | Used | | + +-------+ +--------+------+ | Never Assessed | | | | | + +-------+ +--------+------+ + + + | Sex Assigned at [...] as of this encounter Plan of Treatment Not on filedocumented as of this encounter Procedures + +--------+ + + + | Procedure Name | Priori | Date/Time | Associated Diagnosis | Comments | | | ty | | | | + +--------+ + + + | LAB OTHER | Routin | 04/03/2005 | | Results for this | | | e | 2:03 PM | | procedure are in the | | | | PST | | results section. | + +--------+ + + + | HEMATOPATHOLOGY | Routin | 04/03/2005 | | Results for this | | | e | | | procedure are in the | | | | | | results section. | + +--------+ + + + documented in this encounter Results LAB OTHER (04/03/2005 2:03 PM PST) + + + + + + | Component | Value | Ref Range | Performed | Pathologist | | | | | At | Signature | + + + + + + | MISC REF | B CELL CLONALITY PCR | | [facility] | | | TEST NAME | RT,BM | | DEPARTMENT | | | | | | OF | | | | | | PATHOLOGY | | + + + + + + | MISC REF | Result: | | [facility] | | | TEST RESULT | NegativeInterpretation: | | DEPARTMENT | | | | No clonal B cell | | OF | | | | population was detected | | PATHOLOGY | | + + + + + + | REFERRAL | Referred to [place] | | [facility] | | | LAB NAME | of [place] | | DEPARTMENT | | | | | | OF | | | | | | PATHOLOGY | | + + + + + + + + | Specimen | + + | | + + + + + | Narrative | Performed At | + + + | Ordered by ALEX TOLENTINO | [facility] | | | DEPARTMENT OF | | | PATHOLOGY | + + + + + + + + | Performing | Address | City/State/Zipcode | Phone Number | | Organization | | | | + + + + + | [facility] DEPARTMENT OF | [address] | [place] [address] | | | PATHOLOGY | [address] | | | + + + + + | [facility] DE[facility]MENT OF | [address] | [place] [address] | | | PATHOLOGY | [address] | | | + + + + + HEMATOPATHOLOGY (04/03/2005) + + + + + + | Component | Value | Ref Range | Performed | Pathologist | | | | | At | Signature | + + + + + + | HEMATOPATHO | SOURCE OF SPECIMEN:A | | [facility] | | | LOGY | Back, punch Clinical | | DEPARTMENT | | | | History:The patient is a | | OF | | | | 69-year-old woman with | | PATHOLOGY | | | | a plum-colored plaque in | | | | | | the back. 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 B cell | | | | | | clonality studies(IgH | | | | | | PCR) done at the | | | | | | [facility] | | | | | | ([id number]) show no | | | | | | clonal Bcell population, | | | | | | which supports the | | | | | | diagnosis. Case reviewed | | | | | | by:Edwar Vanessa M.D. / | | | | | | HematopathologistSlides | | | | | | will be returned at a | | | | | | later dateT:04/23/05:lab | | | | | | I have reviewed all | | | | | | diagnostic slides and | | | | | | other materials and have | | | | | | editedall portions of | | | | | | this report as part of | | | | | | my pathologic assessment | | | | | | and | | | | | | finaldiagnosis. | | | | | | | | | | | | | | | | | | | | | | | | Gross | | | | | | Description:Received | | | | | | 04/16/05 from Matthew Thomas | | | | | | Jr. 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 | | | | | | Microscopic | | | | | | Description:Sections | | | | | | show nodular infiltrate | | | | | | in the upper dermis | | | | | | consisting mostly | | | | | | oflymphocytes and plasma | | | | | | cells. Most of the | | | | | | lymphocytes are small | | | | | | and mediumsized. | | | | | | Immunologic | | | | | | Analysis:Antibodies for | | | | | | CD3 and CD20 show a | | | | | | significant predominance | | | | | | of CD20 Bcells. Bcl-6 | | | | | | confirms a follicle | | | | | | center, negative by | | | | | | bcl-2 staining. [id number] | | | | | | confirms several | | | | | | lymphoid follicle | | | | | | centers. CD30 staining | | | | | | is notsignificantly | | | | | | increased. CD8 and CD3 | | | | | | staining indicates a | | | | | | normal number ofCD8 T | | | | | | cells with no apparent | | | | | | increase in CD4. [place] | | | | | | and lambda in situ | | | | | | hybridization highlight | | | | | | a polyclonal plasma | | | | | | cellpopulation. Bcl-2 | | | | | | shows, CD21 shows. | | | | | | (Analyte specific | | | | | | reagents are used in | | | | | | many laboratory tests | | | | | | necessary forstandard | | | | | | medical care and | | | | | | generally do not require | | | | | | FDA approval. This | | | | | | testwas developed and | | | | | | its performance | | | | | | characteristics | | | | | | determined by | | | | | | [facility]. It | | | | | | has not been cleared or | | | | | | approved by the [place] Food | | | | | | and | | | | | | DrugAdministration.)Sesar | | | | | | abbe Diagnostician: | | | | | | Edwar Vanessa | | | | | | ApoorvaPathologistElectroni | | | | | | roya Signed 05/16/2005 | | | | + + + + + + + + | Specimen | + + | | + + + + + | Narrative | Performed At | + + + | Ordered by Winston Castro | [facility] | | | DEPARTMENT OF | | | PATHOLOGY | + + + + + + + + | Performing | Address | City/State/Zipcode | Phone Number | | Organization | | | | + + + + + | [facility] DEPARTMENT OF | [address] | [place] [address] | | | PATHOLOGY | [address] | | | + + + + + | [facility] DEPARTMENT OF | [address] | [place] [address] | | | PATHOLOGY | [address] | | | + + + + + documented in this encounter Visit Diagnoses Not on filedocumented in this encounter
--- OUTSIDE RECORDS SUMMARY | ~2019-04-12 | XMS | Encounter Summary ---
Demographics + + + | Address | [address] | | | [place] [address] | + + + | Home Phone | | + + + | Preferred Language | Unknown | + + + | Marital Status | | + + + | Jew Affiliation | Unknown | + + + | Race | Unknown | + + + | Ethnic Group | Unknown | + + + Author + + + | Author | [facility] | | | and [place] | + + + | Organization | [facility] | | | and [place] | + + + | Address | Unknown | + + + | Phone | Unavailable | + + + Support + + + + + | Name | Relationship | Address | Phone | + + + + + | Osmin Jackson | ECON | [address] | | | | | [place] [address] | | + + + + + | Hunter Jackson | ECON | [place] | | + + + + + | Wes Jackson | ECON | [place], [place] | | + + + + + | Oziel Jackson | ECON | [place], [place] | | + + + + + Care Team Providers + +------+ + | Care Solar Designer/Installer Name | Role | Phone | + [...] | pressure low, | | | | [place], | [place], | question about | | | | [place] [address] | [place] [address] | medications) | | | | [phone] | [phone] | | | | | | | [...] STREETER | | | | | | [id number] | | | | | | | | +--------+---------+ + + + | 11/21/ | Office | Cardiology | Yesi, | | | 2019 | Visit | | JOSE ALBERTO Linder [address] | | | | | | [place], | | | | | | [place] [address] | | | | | | [phone] | | | | | | | | +--------+---------+ + + + documented as of this encounter Visit Diagnoses Not on filedocumented in this encounter"
--- OUTSIDE RECORDS SUMMARY | ~2019-04-12 | XMS | Encounter Summary ---
Demographics + + + | Address | [address] | | | [place] [address] | + + + | Home Phone | | + + + | Preferred Language | Unknown | + + + | Marital Status | | + + + | Synagogue Affiliation | Unknown | + + + | Race | Unknown | + + + | Ethnic Group | Unknown | + + + Author + + + | Author | [facility] | | | and [place] | + + + | Organization | [facility] | | | and [...] | | | | | [place] [address] | | + + + + + | Hunter Jackson | ECON | [place] | | + + + + + | Wes Jackson | ECON | [place], [place] | | + + + + + | Oziel Jackson | ECON | [place], [place] | | + + + + + Care Team Providers + +------+ + | Care Emu Farm Worker Name | Role | Phone | + +------+ + | Rodolfo Cruz MD | PCP | | + +------+ + Encounter Details +--------+ + + + + | Date | Type | Department | Care Team | Description | +--------+ + + + + | 03/15/ | Orders Only | [facility] [place] [facility] | Rodolfo Cruz, | Pulmonary nodule, | | 2015 | | MEDICINE [address] | [address] | right (Primary Dx) | | | | [facility] | [place], [place] | | | | | [place] [address] | [address] | | | | | [phone] | | | +--------+ + + + [...] STREETER | | | | | | [address] | | | | | | | | +--------+---------+ + + + | 11/21/ | Office | Cardiology | Yesi, | | | 2019 | Visit | | JOSE ALBERTO [address] | | | | | | [place] | | | | | | [place] [address] | | | | | | [phone] | | | | | | | | +--------+---------+ + + + documented as of this encounter Results CBC with Differential (03/15/2015 12:13 PM PST) + + + + + + | Component | Value | Ref Range | Performed | Pathologist | | | | | At | Signature | + + + + + + | WBC | 10.2 | 4.0 - 11.0 K/uL | [facility] | | | | | | [facility] | | | | | [facility] | | | | | | [facility] - | | | | | | LABORATORY | | + + + + + + | RBC | 4.31 | 3.70 - 5.20 | [facility] | | | | | M/uL | [facility] | | | | | | [facility] | | | | | | C[facility] - | | | | | | LABORATORY | | + + + + + + | Hemoglobin | 14.5 | 11.5 - 16.0 | [facility] | | | | | g/dL | [facility] | | | | | | [facility] | | | | | | C[facility] - | | | | | | LABORATORY | | + + + + + + | Hematocrit | 44.1 | 34.0 - 47.0 % | [facility] | | | | | | [facility] | | | | | | [facility] | | | | | | [facility] - | | | | | | LABORATORY | | + + + + + + | MCV | 102.3 (H) | 83.0 - 101.0 fL | [facility] | | | | | | [facility] | | | | | | [facility] | | | | | | [facility] - | | | | | | LABORATORY | | + + + + + + | MCH | 33.7 | 28.0 - 35.0 pg | [facility] | | | | | | [facility] | | | | | | [facility] | | | | | | [facility] - | | | | | | LABORATORY | | + + + + + + | MCHC | 33.0 | 32.0 - 36.0 | [facility] | | | | | g/dL | [facility] | | | | | | [facility] | | | | | | CENTER - | | | | | | LABORATORY | | + + + + + + | RDW-CV | 13.5 | <15.0 % | [facility] | | | | | | [facility] | | | | | | [facility] | | | | | | C[facility] - | | | | | | LABORATORY | | + + + + + + | Platelet | 333 | 140 - 440 K/uL | [facility] | | | Count | | | [facility] | | | | | | [facility] | | | | | | CENTER - | | | | | | LABORATORY | | + + + + + + | MPV | 9.8 | fL | [facility] | | | | | | [facility] | | | | | | [facility] | | | | | | [facility] - | | | | | | LABORATORY | | + + + + + + | % | 70.1 | 45.0 - 82.0 % | [facility] | | | Neutrophils | | | [facility] | | | | | | MEDICAL | | | | | | CENTER - | | | | | | LABORATORY | | + + + + + + | % | 19.0 (L) | 20.0 - 45.0 % | [facility] | | | Lymphocytes | | | [facility] | | | | | | MEDICAL | | | | | | CENTER - | | | | | | LABORATORY | | + + + + + + | % Monocytes | 7.5 | 4.0 - 12.0 % | [facility] | | | | | | [facility] | | | | | | [facility]ICAL | | | | | | CENTER - | | | | | | LABORATORY | | + + + + + + | % | 2.7 | 0.0 - 5.0 % | [facility] [...] + + + + | Absolute | 7.10 | 1.80 - 8.50 | [facility] | | | Neutrophils | | K/uL | [facility] | | | | | | [facility]ICAL | | | | | | CENTER - | | | | | | LABORATORY | | + + + + + + | Absolute | 1.90 | 0.60 - 3.20 | [facility] | [...] | Absolute | 0.30 | 0.00 - 0.40 | [facility] | [...] | Basophils | | K/uL | [facility] | [...] | [address] | [place] | [phone] | | [facility] | | [address] | | | - LABORATORY | | | | + + + + + documented in this encounter Visit Diagnoses + + | Diagnosis | + + | Pulmonary nodule, right - Primary Solitary pulmonary nodule | + + documented in this encounter"
--- OUTSIDE RECORDS SUMMARY | ~2019-04-12 | XMS | Encounter Summary ---
Demographics + + + | Address | [address] | | | [place] [address] | + + + | Home Phone | | + + + | Preferred Language | Unknown | + + + | Marital Status | | + + + | Cheondoism Affiliation | Unknown | + + + | Race | Unknown | + + + | Ethnic Group | Unknown | + + + Author + + + | Author | [facility] | | | and [place] | + + + | Organization | [facility] | | | and [place] | + + + | Address | Unknown | + + + | Phone | Unavailable | + + + Support + + + + + | Name | Relationship | Address | Phone | + + + + + | Osmin Jackson | ECON | [address] | | | | | [place] [address] | | + + + + + | Hunter Jackson | ECON | [place] | | + + + + + | Wes Jackson | ECON | [place], [place] | | + + + + + | Oziel Jackson | ECON | [place], [place] | | + + + + + Care Team Providers + +------+ + | Care Account Development Specialist Name | Role | Phone | + +------+ + | Kellie Gunderson | PCP | | + +------+ + Reason for Visit + + + | Reason | Comments | + + + | Follow-up | Follow Up Right Shoulder and Right CMC injection | + + + Encounter Details +--------+---------+ + + + | Date | Type | Department | Care Team | Description | +--------+---------+ + + + | 10/16/ | Office | [facility] | Ulysses Jensen, | Arthritis of | | 2018 | Visit | ORTHOPEDIC SURGERY | [address] [facility] | carpometacarpal | | | | [address] [facility] | [facility] [place] | ([facility]) joint of right | | | | [place], [place] | [address] | thumb (Primary Dx); | | | | [address] | | Rotator cuff tear | | | | [phone] | | arthropathy of right | | [...] + + + + | Weight | 82.1 kg (181 lb) | 10/16/2017 10:29 AM | | | | | PDT | | + + + + + | Height | 165.1 cm (5' 5") | 10/16/2017 10:29 AM | | | | | PDT | | + + + + + | Body Mass Index | 30.12 | 10/16/2017 10:29 AM | | | | | PDT | | + + + + + documented in this encounter Progress Notes Ulysses Jensen MD - 10/16/2017 10:30 AM PDTPatient returns for right shoulder injection a nd right first cmc injection Under sterile conditions today I injected right shoulder subacromial space with kenalog 40m g and naropin 3cc Under sterile conditions I then injected right first cmc joint with celestone 1cc and 1cc n aropin She tolerated well and will return as needed documented in this [...] [place] | | | | | | [address] | | | | | | | | +--------+---------+ + + + | 11/21/ | Office | Cardiology | Yesi, | | | 2019 | Visit | | JOSE ALBERTO Linder [address] | | | | | | [place], | | | | | | [place] [address] | | | | | | [phone] | | | | | | | [...]
--- OUTSIDE RECORDS SUMMARY | ~2019-04-12 | XMS | Encounter Summary ---
Demographics + + + | Address | [address] | | | [place] [address] | + + + | Home Phone | | + + + | Preferred Language | Unknown | + + + | Marital Status | | + + + | Oriental Orthodox Affiliation | Unknown | + + + | Race | Unknown | + + + | Ethnic Group | Unknown | + + + Author + + + | Author | [facility] | | | and [place] | + + + | Organization | [facility] | | | and [...] | | | | | [place] [address] | | + + + + + | Hunter Jackson | ECON | [place] | | + + + + + | Wes Jackson | ECON | [place], [place] | | + + + + + | Oziel Jackson | ECON | [place], [place] | | + + + + + Care Team Providers + +------+ + | Care Link Fabric Machine Operator Name | Role | Phone [...] Closed | | Radiology | Diagnoses | Morasch, | [facility] | | | | | Lytic bone | Rodolfo Reilly MD | Medicine | | | | | lesions on | [address] | [address] | | | | | xray | [address] [place] | [place], | | | | | Procedures | [place] | [place] | | | | | [place] Bone Scan | [address] | [address] | | | | | Whole Body | Phone: | Phone: | | | | | | [phone] | [phone] | | | | | | Fax: | Fax: | | | | | | [phone] | [phone] | +--------+--------+ + + + + Encounter Details +--------+ + + + + | Date | Type | Department | Care Team | Description | +--------+ + + + + | 10/27/ | Orders Only | [facility] [place] [facility] | Rodolfo Cruz, | Lytic bone lesions | | 2013 | | MEDICINE [employer] [address] | MD [address] | on xray (Primary Dx) | | | | Street [facility] | [place] | | | | | [facility] [address] | [address] | | | | | [phone] | | | +--------+ + + + [...] | 2019 | Visit | | MD [address] | | | | | | [place], [place] | | | | | | [address] | | | | | | | | +--------+---------+ + + + | 11/21/ | Office | Cardiology | Yesi, | | | 2019 | Visit | | JOSE ALBERTO [address] | | | | | | [place], | | | | | | [place] [address] | | | | | | [phone] | | | | | | | | +--------+---------+ + + + + +---------+--------+ + + | Name | Type | Priori | Associated Diagnoses | Order Schedule | | | | ty | | | + +---------+--------+ + + | [place] Bone Scan Whole | Imaging | Routin | Lytic bone lesions | Expected: | | Body | | e | on xray | 10/27/2013, Expires: | | | | | | 10/27/2014 | + +---------+--------+ + + documented as of this encounter Visit Diagnoses + + | Diagnosis | + + | 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
--- OUTSIDE RECORDS SUMMARY | ~2019-04-12 | XMS | Encounter Summary ---
Demographics + + + | Address | [address] | | | [place] [address] | + + + | Home Phone | | + + + | Preferred Language | Unknown | + + + | Marital Status | | + + + | Anabaptist Affiliation | Unknown | + + + | Race | Unknown | + + + | Ethnic Group | Unknown | + + + Author + + + | Author | [facility] | | | and [place] | + + + | Organization | [facility] | | | and [...] | | | | | [place] [address] | | + + + + + | Hunter Jackson | ECON | [place] | | + + + + + | Wes Jackson | ECON | [place], [place] | | + + + + + | Oziel Jackson | ECON | [place], [place] | | + + + + + Care Team Providers + +------+ + | Care Switch Adjuster Name | Role | Phone | + +------+ + | Rodolfo Cruz MD | PCP | | + +------+ + Reason for Visit + + + | Reason | Comments | + + + | Heart Problem | | + + + Encounter Details +--------+ + + + + | Date | Type | Department | Care Team | Description | +--------+ + + + + | 09/29/ | Telephone | [facility] | Rodolfo Cruz, | Heart Problem | | 2013 | | MEDICINE [address] [place] [address] | MD [place] [address] | | | | | Preet Menchaca | [address] | | | | | [place] [id number] | [id number] | | | | | [phone] | | | +--------+ + + + [...] | | | | | | [place], | | | | | | [place] [address] | | | | | | [phone] | | | | | | | | +--------+---------+ + + + documented as of this encounter Visit Diagnoses Not on filedocumented in this encounter"
--- OUTSIDE RECORDS SUMMARY | ~2019-04-12 | XMS | Encounter Summary ---
Demographics + + + | Address | [address] | | | [place] [address] | + + + | Home Phone | | + + + | Preferred Language | Unknown | + + + | Marital Status | | + + + | Christian Affiliation | Unknown | + + + | Race | Unknown | + + + | Ethnic Group | Unknown | + + + Author + + + | Author | [facility] | | | and [place] | + + + | Organization | [facility] | | | and [place] | + + + | Address | Unknown | + + + | Phone | Unavailable | + + + Support + + + + + | Name | Relationship | Address | Phone | + + + + + | Osmin Jackson | ECON | [address] | | | | | [place] [address] | | + + + + + | Hunter Jackson | ECON | [place] | | + + + + + | Wes Jackson | ECON | [place], [place] | | + + + + + | Oziel Jackson | ECON | [place], [place] | | + + + + + Care Team Providers + +------+ + | Care Blind Stitch Machine Operator Name | Role | Phone | + +------+ + | Kellie Gunderson | PCP | | + +------+ + Encounter Details +--------+ + + + + | Date | Type | Department | Care Team | Description | +--------+ + + + + | 11/05/ | Telephone | [facility] | Rodolfo Cruz, | | | 2013 | | MEDICINE [address] [place] [address] | MD [address] | | | | | [facility] | [place], [place] | | | | | [place] [address] | [id number] | | | | | [phone] | | | +--------+ + + + [...] ST | | | | | | [place] [address] | | | | | | [id number] | | | | | | | | +--------+---------+ + + + | 11/21/ | Office | Cardiology | Yesi, | | | 2019 | Visit | | JOSE AL[address]ERTO [address] | | | | | | [place], | | | | | | [place] [address] | | | | | | [phone] | | | | | | | | +--------+---------+ + + + documented as of this encounter Visit Diagnoses Not on filedocumented in this encounter"
--- OUTSIDE RECORDS SUMMARY | ~2019-04-12 | XMS | Encounter Summary ---
Demographics + + + | Address | [address] | | | [place] [address] | + + + | Home Phone | | + + + | Preferred Language | Unknown | + + + | Marital Status | | + + + | Restorationism Affiliation | Unknown | + + + | Race | Unknown | + + + | Ethnic Group | Unknown | + + + Author + + + | Author | [facility] | | | and [place] | + + + | Organization | [facility] | | | and [place] | + + + | Address | Unknown | + + + | Phone | Unavailable | + + + Support + + + + + | Name | Relationship | Address | Phone | + + + + + | Osmin Jackson | ECON | [address] | | | | | [place] [address] | | + + + + + | Hunter Jackson | ECON | [place] | | + + + + + | Wes Jackson | ECON | [place], [place] | | + + + + + | Oziel Jackson | ECON | [place], [place] | | + + + + + Care Team Providers + +------+ + | Care Police And Fire Dispatcher Name | Role | Phone | + +------+ + | Angelica Klein MD | PCP | | + +------+ + Reason for Visit + + + | Reason | Comments | + + + | Medication Refill | | + + + Encounter Details +--------+ + + + + | Date | Type | Department | Care Team | Description | +--------+ + + + + | 05/24/ | Telephone | [facility] | No, Physician | Medication Refill | | 2016 | | MEDICINE [facility] | | | | | | [place] | | | | | | [place] [address] | | | | | | [phone] | | | +--------+ + + + [...] [address]REET[address] | | | | | | [id number] | | | | | | | | +--------+---------+ + + + | 11/21/ | Office | Cardiology | Yesi, | | | 2019 | Visit | | [address] | | | | | | [place] | | | | | | [place] [address] | | | | | | [phone] | | | | | | | | +--------+---------+ + + + documented as of this encounter Visit Diagnoses Not on filedocumented in this encounter"
--- OUTSIDE RECORDS SUMMARY | ~2019-04-12 | XMS | Encounter Summary ---
Demographics + + + | Address | [address] | | | [place] [address] | + + + | Home Phone | | + + + | Preferred Language | Unknown | + + + | Marital Status | | + + + | Rastafari Affiliation | Unknown | + + + | Race | Unknown | + + + | Ethnic Group | Unknown | + + + Author + + + | Author | [facility] | | | and [place] | + + + | Organization | [facility] | | | and [place] | + + + | Address | Unknown | + + + | Phone | Unavailable | + + + Support + + + + + | Name | Relationship | Address | Phone | + + + + + | Osmin Jackson | ECON | [address] | | | | | [place] [address] | | + + + + + | Hunter Jackson | ECON | [place] | | + + + + + | Wes Jackson | ECON | [place], [place] | | + + + + + | Oziel Jackson | ECON | [place], [place] | | + + + + + Care Team Providers + +------+ + | Care Dog Or Horse Racing Official Name | Role | Phone | + +------+ + | Kellie Gunderson | PCP | | + +------+ + Encounter Details +--------+ + + + + | Date | Type | Department | Care Team | Description | +--------+ + + + + | 06/01/ | Abstract | [facility] | [place]i, | | | 2018 | | CARDIOLOGY [address] | JOSE AL[address]ERTO [address] | | | | | [place], | [place], | | | | | [place] [address] | [place] [address] | | | | | [phone] | [phone] | | | | | | | [...] [address] | | | | | | [place] | | | | | | [place] [address] | | | | | | [phone] | | | | | | | | +--------+---------+ + + + documented as of this encounter Procedures + +--------+ + + + | Procedure Name | Priori | Date/Time | Associated Diagnosis | Comments | | | ty | | | | + +--------+ + + + | EXTERNAL LAB: BUN | Routin | 05/30/2018 | | Results for this | | | e | | | procedure are in the | | | | | | results section. | + +--------+ + + + | EXTERNAL LAB: | Routin | 05/30/2018 | | Results for this | | GLUCOSE | e | | | procedure are in the | | | | | | results section. | + +--------+ + + + | EXTERNAL LAB: ALT | Routin | 05/30/2018 | | Results for this | | | e | | | procedure are in the | | | | | | results section. | + +--------+ + + + | EXTERNAL LAB: AST | Routin | 05/30/2018 | | Results for this | | | e | | | procedure are in the | | | | | | results section. | + +--------+ + + + | EXTERNAL LAB: | Routin | 05/30/2018 | | Results for this | | ALKALINE PHOSPHATASE | e | | | procedure are in the | | | | | | results section. | + +--------+ + + + | EXTERNAL LAB: | Routin | 05/30/2018 | | Results for this | | BILIRUBIN, TOTAL | e | | | procedure are in the | | | | | | results section. | + +--------+ + + + | EXTERNAL LAB: | Routin | 05/30/2018 | | Results for this | | ALBUMIN | e | | | procedure are in the | | | | | | results section. | + +--------+ + + + | EXTERNAL LAB: | Routin | 05/30/2018 | | Results for this | | PROTEIN, TOTAL | e | | | procedure are in the | | | | | | results section. | + +--------+ + + + | EXTERNAL LAB: | Routin | 05/30/2018 | | Results for this | | CALCIUM | e | | | procedure are in the | | | | | | results section. | + +--------+ + + + | EXTERNAL LAB: CARBON | Routin | 05/30/2018 | | Results for this | | DIOXIDE | e | | | procedure are in the | | | | | | results section. | + +--------+ + + + | EXTERNAL LAB: | Routin | 05/30/2018 | | Results for this | | CHLORIDE | e | | | procedure are in the | | | | | | results section. | + +--------+ + + + | EXTERNAL LAB: | Routin | 05/30/2018 | | Results for this | | POTASSIUM | e | | | procedure are in the | | | | | | results section. | + +--------+ + + + | EXTERNAL LAB: SODIUM | Routin | 05/30/2018 | | Results for this | | | e | | | procedure are in the | | | | | | results section. | + +--------+ + + + | EXTERNAL LAB: CBC | Routin | 05/30/2018 | | Results for this | | | e | | | procedure are in the | | | | | | results section. | + +--------+ + + + | EXTERNAL LAB: | Routin | 05/30/2018 | | Results for this | | TRIGLYCERIDES | e | | | procedure are in the | | | | | | results section. | + +--------+ + + + | EXTERNAL LAB: | Routin | 05/30/2018 | | Results for this | | CHOLESTEROL, HDL | e | | | procedure are in the | | | | | | results section. | + +--------+ + + + | EXTERNAL LAB: | Routin | 05/30/2018 | | Results for this | | CHOLESTEROL, TOTAL | e | | | procedure are in the | | | | | | results section. | + +--------+ + + + | EXTERNAL LAB: | Routin | 05/30/2018 | | Results for this | | CHOLESTEROL, LDL | e | | | procedure are in the | | DIRECT | | | | results section. | + +--------+ + + + | EXTERNAL LAB: EGFR | Routin | 05/30/2018 | | Results for this | | | e | | | procedure are in the | | | | | | results section. | + +--------+ + + + | EXTERNAL LAB: | Routin | 05/30/2018 | | Results for this | | CREATININE | e | | | procedure are in the | | | | | | results section. | + +--------+ + + + | LIPID PANEL | Routin | 05/30/2018 | | Results for this | | | e | | | procedure are in the | | | | | | results section. | + +--------+ + + + | CBC WITH | Routin | 05/30/2018 | | Results for this | | DIFFERENTIAL | e | | | procedure are in the | | | | | | results section. | + +--------+ + + + | COMPREHENSIVE | Routin | 05/30/2018 | | Results for this | | METABOLIC PANEL | e | | | procedure are in the | | | | | | results section. | + +--------+ + + + documented in this encounter Results CBC with Differential (05/30/2018) + + + + + + | Component | Value | Ref Range | Performed | Pathologist | | | | | At | Signature | + + + + + + | MCH | 34.0 (A) | 27.0 - 33.0 pg | | | + + + + + + | MCHC | 33.0 | 30.0 - 36.0 % | | | + + + + + + | % Basophils | 1.0 | 0.0 - 2.0 % | | | + + + + + + + + | Specimen | + + | Blood | + + Comprehensive Metabolic Panel (05/30/2018) + +---------+ + + + | Component | Value | Ref Range | Performed | Pathologist | | | | | At | Signature | + +---------+ + + + | Anion Gap | 15 | 7 - 21 mmol/L | | | + +---------+ + + + | Bun/Creatin | 19.7 | 6.0 - 28.6 | | | | ine | | | | | + +---------+ + + + | Globulin | 3.7 (A) | 1.8 - 3.5 | | | + +---------+ + + + | Albumin/Sarah | 1.2 | 1.1 - 2.4 | | | | bulin Ratio | | | | | + +---------+ + + + + + | Specimen | + + | Blood | + + Lipid Panel (05/30/2018) + +-------+ + + + | Component | Value | Ref Range | Performed | Pathologist | | | | | At | Signature | + +-------+ + + + | VLDL | 12 | 4 - 40 | | | | Cholesterol | | | | | | Jaime | | | | | + +-------+ + + + | Chol/HDL | 1.9 | 4.4 | | | | Ratio | | | | | + +-------+ + + + | Non-HDL | 76 | 130 | | | | Cholesterol | | | | | + +-------+ + + + + + | Specimen | + + | Blood | + + External Lab: BUN (05/30/2018) + +-------+ + + + | Component | Value | Ref Range | Performed | Pathologist | | | | | At | Signature | + +-------+ + + + | BUN, | 13 | 6 - 23 | | | | External | | | | | + +-------+ + + + External Lab: Glucose (05/30/2018) + +-------+ + + + | Component | Value | Ref Range | Performed | Pathologist | | | | | At | Signature | + +-------+ + + + | Glucose, | 99 | 70 - 100 | | | | External | | | | | + +-------+ + + + External Lab: ALT (05/30/2018) + +-------+ + + + | Component | Value | Ref Range | Performed | Pathologist | | | | | At | Signature | + +-------+ + + + | ALT, | 28 | 7 - 52 | | | | External | | | | | + +-------+ + + + External Lab: AST (05/30/2018) + +-------+ + + + | Component | Value | Ref Range | Performed | Pathologist | | | | | At | Signature | + +-------+ + + + | AST, | 32 | 13 - 39 | | | | External | | | | | + +-------+ + + + External Lab: Alkaline Phosphatase (05/30/2018) + +-------+ + + + | Component | Value | Ref Range | Performed | Pathologist | | | | | At | Signature | + +-------+ + + + | ALP, | 112 | 31 - 130 | | | | External | | | | | + +-------+ + + + External Lab: Bilirubin, Total (05/30/2018) + +-------+ + + + | Component | Value | Ref Range | Performed | Pathologist | | | | | At | Signature | + +-------+ + + + | Bilirubin, | 0.6 | 0 - 1.2 | | | | Total, | | | | | | External | | | | | + +-------+ + + + External Lab: Albumin (05/30/2018) + +-------+ + + + | Component | Value | Ref Range | Performed | Pathologist | | | | | At | Signature | + +-------+ + + + | Albumin, | 4.4 | 3.5 - 5 | | | | External | | | | | + +-------+ + + + External Lab: Protein, Total (05/30/2018) + +-------+ + + + | Component | Value | Ref Range | Performed | Pathologist | | | | | At | Signature | + +-------+ + + + | Protein, | 8.1 | 6 - 8.3 | | | | Total, | | | | | | External | | | | | + +-------+ + + + External Lab: Calcium (05/30/2018) + +-------+ + + + | Component | Value | Ref Range | Performed | Pathologist | | | | | At | Signature | + +-------+ + + + | Calcium, | 9.9 | 8.5 - 10.3 | | | | External | | | | | + +-------+ + + + External Lab: Carbon Dioxide (05/30/2018) + +-------+ + + + | Component | Value | Ref Range | Performed | Pathologist | | | | | At | Signature | + +-------+ + + + | Carbon | 28 | 19 - 31 | | | | Dioxide, | | | | | | External | | | | | + +-------+ + + + External Lab: Chloride (05/30/2018) + +-------+ + + + | Component | Value | Ref Range | Performed | Pathologist | | | | | At | Signature | + +-------+ + + + | Chloride, | 96 | 95 - 112 | | | | External | | | | | + +-------+ + + + External Lab: Potassium (05/30/2018) + +-------+ + + + | Component | Value | Ref Range | Performed | Pathologist | | | | | At | Signature | + +-------+ + + + | Potassium, | 4.3 | 3.6 - 5.1 | | | | External | | | | | + +-------+ + + + External Lab: Sodium (05/30/2018) + +-------+ + + + | Component | Value | Ref Range | Performed | Pathologist | | | | | At | Signature | + +-------+ + + + | Sodium, | 135 | 132 - 143 | | | | External | | | | | + +-------+ + + + External Lab: CBC (05/30/2018) + + + + + + | Component | Value | Ref Range | Performed | Pathologist | | | | | At | Signature | + + + + + + | WBC, | 7.7 | 4.5 - 11 | | | | External | | | | | + + + + + + | HGB, | 14.4 | 12 - 16 | | | | External | | | | | + + + + + + | HCT, | 43.3 | 35 - 45 | | | | External | | | | | + + + + + + | PLT, | 389 | 140 - 440 | | | | External | | | | | + + + + + + | Neutrophils | 65.9 | 39 - 80 | | | | %, | | | | | | External | | | | | + + + + + + | Lymphocytes | 20.6 (A) | 24 - 44 | | | | %, | | | | | | External | | | | | + + + + + + | Monocytes | 8.4 | 0 - 12 | | | | %, External | | | | | + + + + + + | Eosinophils | 4.1 | 0 - 6 | | | | %, | | | | | | External | | | | | + + + + + + | RBC, | 4.23 | 3.8 - 5.1 | | | | External | | | | | + + + + + + | MCV, | 102 (A) | 81 - 99 | | | | External | | | | | + + + + + + | RDW, | 13.1 | 10.5 - 15 | | | | External | | | | | + + + + + + External Lab: Triglycerides (05/30/2018) + +-------+ + + + | Component | Value | Ref Range | Performed | Pathologist | | | | | At | Signature | + +-------+ + + + | Triglycerid | 59 | 30 - 150 | | | | es, | | | | | | External | | | | | + +-------+ + + + + + | Specimen | + + | Blood | + + External Lab: Cholesterol, HDL (05/30/2018) + +-------+ + + + | Component | Value | Ref Range | Performed | Pathologist | | | | | At | Signature | + +-------+ + + + | HDL | 82 | 40 mg/dl | | | | Cholesterol | | | | | | , External | | | | | + +-------+ + + + + + | Specimen | + + | Blood | + + External Lab: Cholesterol, Total (05/30/2018) + +-------+ + + + | Component | Value | Ref Range | Performed | Pathologist | | | | | At | Signature | + +-------+ + + + | Cholesterol | 158 | 200 mg/dl | | | | , Total, | | | | | | External | | | | | + +-------+ + + + + + | Specimen | + + | Blood | + + External Lab: Cholesterol, LDL Direct (05/30/2018) + +-------+ + + + | Component | Value | Ref Range | Performed | Pathologist | | | | | At | Signature | + +-------+ + + + | LDL | 64 | 100 | | | | Cholesterol | | | | | | , Direct, | | | | | | External | | | | | + +-------+ + + + + + | Specimen | + + | Blood | + + External Lab: eGFR (05/30/2018) + +-------+ + + + | Component | Value | Ref Range | Performed | Pathologist | | | | | At | Signature | + +-------+ + + + | eGFR, | 86 | 60 | | | | External | | | | | + +-------+ + + + + + | Specimen | + + | Blood | + + External Lab: Creatinine (05/30/2018) + + + + + + | Component | Value | Ref Range | Performed | Pathologist | | | | | At | Signature | + + + + + + | Creatinine, | 0.66 (A) | 0.7 - 1.11 | | | | External | | | | | + + + + + + + + | Specimen | + + | Blood | + + documented in this encounter Visit Diagnoses Not on filedocumented in this encounter"
--- OUTSIDE RECORDS SUMMARY | ~2019-04-12 | XMS | Encounter Summary ---
Demographics + + + | Address | [address] | | | [place] [address] | + + + | Home Phone | | + + + | Preferred Language | Unknown | + + + | Marital Status | | + + + | Yarsanism Affiliation | Unknown | + + + | Race | Unknown | + + + | Ethnic Group | Unknown | + + + Author + + + | Author | [facility] | | | and [place] | + + + | Organization | [facility] | | | and [place] | + + + | Address | Unknown | + + + | Phone | Unavailable | + + + Support + + + + + | Name | Relationship | Address | Phone | + + + + + | Osmin Jackson | ECON | [address] | | | | | [place] [address] | | + + + + + | Hunter Jackson | ECON | [place] | | + + + + + | Wes Jackson | ECON | [place], [place] | | + + + + + | Oziel Jackson | ECON | [place], [place] | | + + + + + Care Team Providers + +------+ + | Care Acute Care Registered Nurse Name | Role | Phone | + [...] + + | 05/21/ | Telephone | [facility] | Yesi, | Appointment | | 2016 | | CARDIOLOGY [address] | JOSE [address]ERTO [address] | | | | | [place], | [place], | | | | | [place] [address] | [place] [address] | | | | | [phone] | [phone] | | | | | | | [...] [address] | | | | | | [address] | | | | | | | | +--------+---------+ + + + | 11/21/ | Office | Cardiology | Yesi, | | | 2019 | Visit | | JOSE ALBERTO [address] | | | | | | [place] [address] [place] | | | | | | [place] [address] | | | | | | [phone] | | | | | | | | +--------+---------+ + + + documented as of this encounter Visit Diagnoses Not on filedocumented in this encounter"
--- OUTSIDE RECORDS SUMMARY | ~2019-04-12 | XMS | Encounter Summary ---
Demographics + + + | Address | [address] | | | [place] [address] | + + + | Home Phone | | + + + | Preferred Language | Unknown | + + + | Marital Status | | + + + | Restoration Affiliation | Unknown | + + + | Race | Unknown | + + + | Ethnic Group | Unknown | + + + Author + + + | Author | [facility] | | | and [place] | + + + | Organization | [facility] | | | and [...] | | | | | [place] [address] | | + + + + + | Hunter Jackson | ECON | [place] | | + + + + + | Wes Jackson | ECON | [place], [place] | | + + + + + | Oziel Jackson | ECON | [place], [place] | | + + + + + Care Team Providers + +------+ + | Care Manager Medicare Name | Role | Phone | + +------+ + | Rodolfo Cruz MD | PCP | | + +------+ + Reason for Visit + + + | Reason | Comments | + + + | Follow-up | labs | + + + Encounter Details +--------+---------+ + + + | Date | Type | Department | Care Team | Description | +--------+---------+ + + + | 06/02/ | Office | [facility] | Rodolfo Cruz, | Multiple contusions | | 2013 | Visit | [facility] | [address] | (Primary Dx); | | | | [address] | [place], [place] | Hyperlipidemia; | | | | [place], [place] | [address] | Hypertension; | | | | [address] | | Osteoarthritis; | | | | [phone] | | GERD; TIA; Asthma | | | | | |Asthma | +--------+---------+ + + + Social History [...] + + + | Blood Pressure | 128/66 | 06/02/2012 2:42 PM | | | | | PST | | + + + + + | Pulse | 77 | 06/02/2012 2:42 PM | | | | | PST | | + + + + + | Temperature | 36.4 C (97.6 F) | 06/02/2012 2:42 PM | | | | | PST | | + + + + + | Respiratory Rate | - | - | | + + + + + | Oxygen Saturation | 98% | 06/02/2012 2:42 PM | | | | | PST | | + + + + + | Inhaled Oxygen | - | - | | | Concentration | | | | + + + + + | Weight | 95.4 kg (210 lb 6.4 | 06/02/2012 2:42 PM | | | | oz) | PST | | + + + + + | Height | - | - | | + + + + + | Body Mass Index | 33.96 | 04/09/2012 11:16 AM | | | | | PST | | + + + + + documented in this encounter Progress Notes Rodolfo Cruz MD - 06/02/2012 2:56 PM PSTFormatting of this note might be different f rom the original. Subjective: Patient ID: Soumya Jackson is a 76 y.o. female. HPI Recent visit to ER in [place] for a fall and multiple bruises. She is doing fine now. S he had bruises on her left side and left knee and her hand. This is all resolved. BPV, dizzyness with change in position on rare occasion, She did see Dr Davis for this. She has been to the urgent care and the ER for this. It is getting a little bit better. There is no ear pain. HTN blood pressure slightly higher in recent [...] i s mostly unchanged. Hyperlipidemia, on Tricor, no muscle aches or weakness on the medication, compliant, now on Krill Oil. Asthma , occasionally wheezy, was prescribed an inhaler and this has helped, no SOB or wh eezing at this point. 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 HENT: Negative for ear pain, No nosebleeds,no rhinorrhea,no trouble swallowing and no sinus pressure. Eyes: Negative for pain and no visual disturbance. Respiratory: Negative for cough, no chest tightness, no shortness of breath no wheezing. Cardiovascular: Negative for chest pain, no palpitations and no leg swelling. Gastrointestinal: Negative for nausea,no vomiting,no diarrhea,no constipation no abdominal distention. No Belly pain, no black and no bloody stools, no excessive gas Genitourinary: Negative for urgency, no frequency, no decreased urine volume no difficulty urinating. No Bloody urine Musculoskeletal: Negative for myalgias, no back pain, pos joint swelling and pos arthralg ias. Skin: Negative for color change,no rash and No wounds, no Strange moles Neurological: Negative for dizziness, no Weakness,no light-headedness, no numbness and no headaches. Hematological: Negative for adenopathy. Does not bruise/bleed easily. Psychiatric/Behavioral: Negative for suicidal ideas,no confusion and no agitation. no Depression, no anxiety,no sleep problems Objective: Physical Exam Heent, WNL Chest CTAB Heart RR&R /s M Abd S,NT,ND,BS+ Ext, no CCor E Assessment: 1. Multiple contusions 2. Hyperlipidemia 3. Hypertension 4. Osteoarthritis 5. GERD 6. TIA 7. Asthma Plan: Repeat ESR, It was elevated last time, about 38. , Probably secondary to her arthritis. RTC 3 months. documented in this encounter Plan of Treatment +--------+---------+ + + + | Date | Type | Specialty | Care Team | Description | +--------+---------+ + + + | 06/02/ | Office | Orthopedic Surgery | Ulysses Jensen, | | | 2019 | Visit | | MD Danny FLANNERY | | | | | | [place] | | | | | | [phone] | | | | | | | | +--------+---------+ + + + | 11/21/ | Office | Cardiology | Yesi, | | | 2019 | Visit | | JOSE ALBERTO Linder [address] | | | | | | [place] | | | | | | [place] [address] | | | | | | [phone] | | | | | | | | +--------+---------+ + + + documented as of this encounter Results Sedimentation Rate (06/02/2012 3:44 PM PST) + +-------+ + + + | Component | Value | Ref Range | Performed | Pathologist | | | | | At | Signature | + +-------+ + + + | ESR | 29 | 0 - 30 mm/hr | [facility] | | | | [...] [address] | [place] | [phone] | | [facility] | | [address] | | | - LABORATORY | | | | + + + + + | [address] | [address] | [place] | | | [facility] | | [address] | | | - LABORATORY | | | | + + + + + documented in this encounter Visit Diagnoses + + | Diagnosis | + + | Multiple contusions - Primary Contusion of multiple sites, not elsewhere classified | + + | Hyperlipidemia Other and unspecified hyperlipidemia | + + | Hypertension Unspecified essential hypertension | + + | Osteoarthritis Osteoarthrosis, unspecified whether generalized or localized, | | unspecified site | + + | GERD Esophageal reflux | + + | TIA Unspecified transient cerebral ischemia | + + | Asthma Unspecified asthma | + + documented in this encounter"
--- OUTSIDE RECORDS SUMMARY | ~2019-04-12 | XMS | Encounter Summary ---
Demographics + + + | Address | [address] | | | [place] [address] | + + + | Home Phone | | + + + | Preferred Language | Unknown | + + + | Marital Status | | + + + | Gnosticist Affiliation | Unknown | + + + | Race | Unknown | + + + | Ethnic Group | Unknown | + + + Author + + + | Author | [facility] | | | and [place] | + + + | Organization | [facility] | | | and [...] | | | | | [place] [address] | | + + + + + | Hunter Jackson | ECON | [place] | | + + + + + | Wes Jackson | ECON | [place], [place] | | + + + + + | Oziel Jackson | ECON | [place], [place] | | + + + + + Care Team Providers + +------+ + | Care Clinic Physician Name | Role | Phone | + [...] | 01/20/ | Refill | [facility] | Rodolfo Cruz, | Medication Refill | | 2013 | | MEDICINE [address] | [address] | | | | | [place] | [place] [address] | | | | | [place] [address] | [address] | | | | | [phone] | | | +--------+--------+ + + + [...] | | | | | | [place] [address] | | | | | | [phone] | | | | | | | | +--------+---------+ + + + documented as of this encounter Visit Diagnoses Not on filedocumented in this encounter"
--- OUTSIDE RECORDS SUMMARY | ~2019-04-12 | XMS | Encounter Summary ---
Demographics + + + | Address | [address] | | | [place] [address] | + + + | Home Phone | | + + + | Preferred Language | Unknown | + + + | Marital Status | | + + + | Mandaeism Affiliation | Unknown | + + + | Race | Unknown | + + + | Ethnic Group | Unknown | + + + Author + + + | Author | [facility] | | | and [place] | + + + | Organization | [facility] | | | and [place] | + + + | Address | Unknown | + + + | Phone | Unavailable | + + + Support + + + + + | Name | Relationship | Address | Phone | + + + + + | Osmin Jackson | ECON | [address] | | | | | [place] [address] | | + + + + + | Hunter Jackson | ECON | [place] | | + + + + + | Wes Jackson | ECON | [place], [place] | | + + + + + | Oziel Jackson | ECON | [place], [place] | | + + + + + Care Team Providers + +------+ + | Care Recording Engineer Name | Role | Phone | + +------+ + | Gunderson, Kellie PA | PCP | | + +------+ + Reason for Visit + + + | Reason | Comments | + + + | Follow-up | | + + + | Hypertension | | + + + Encounter Details +--------+---------+ + + + | Date | Type | Department | Care Team | Description | +--------+---------+ + + + | 08/01/ | Office | [facility] | [place]i, | Aortic valve | | 2017 | Visit | CARDIOLOGY [address] | JOSE ALBERTO Linder [address] | insufficiency, | | | | [place], | [place], | unspecified etiology | | | | [place] [address] | [place] [address] | (Primary Dx); | | | | [phone] | [phone] | Essential | | | | | | hypertension with | | | | | | goal blood pressure | | | | | | less than 130/80; | | | | | | Hyperlipidemia, | | | | | | mixed | +--------+---------+ + + + Social History [...] + + + | Blood Pressure | 158/62 | 08/01/2016 2:21 PM | | | | | PDT | | + + + + + | Pulse | 63 | 08/01/2016 2:21 PM | | | | | PDT | | + + + + + | Temperature | - | - | | + + + + + | Respiratory Rate | 14 | 08/01/2016 2:21 PM | | | | | PDT | | + + + + + | Oxygen Saturation | - | - | | + + + + + | Inhaled Oxygen | - | - | | | Concentration | | | | + + + + + | Weight | 79.8 kg (176 lb) | 08/01/2016 2:21 PM | | | | | PDT | | + + + + + | Height | 162.6 cm (5' 4") | 08/01/2016 2:21 PM | | | | | PDT | | + + + + + | Body Mass Index | 30.21 | 08/01/2016 2:21 PM | | | | | PDT | | + + + + + documented in this encounter Progress Notes Niyah Key ARNP - 08/01/2016 2:15 PM PDTFormatting of this note might be differen t from the original. PATIENT NAME: Soumya Jackson : 1935: AGE: 80 y.o. PRIMARY CARE: [facility] OUTPATIENT FOLLOW UP VISIT Date of Service: 08/01/2016 HISTORY OF PRESENT ILLNESS: Soumya Jackson is a 80 y.o. female with a history of essential moderate aortic valve insu fficiency, essential hypertension, osteoarthritis, hypothyroidism, dyslipidemia, elevated CR P. She is being seen today for follow up chest pain and hypertension She was last seen 07/03/2016 at which time she was scheduled for a stress test and an echoc ardiogram and she was to do a blood pressure log for 2 weeks and follow up for results. Sin ce that time, she has been feeling "better". She has been dealing with musculoskeletal pain on her right shoulder and back and neck, she is awaiting to be seen by physiatry. Patient started going back to the pool to exercise on a regular basis and she has felt that her dysp twan has improved since then. She also switched her GERD medication and she hasn't felt as m uch chest pressure she was before She has had a good energy level. She has overall felt imp rovement. She has not had any chest pain or discomfort at rest or with exertion. She has not noticed shortness of breath. She has not had any lightheadedness or dizziness. She has not noticed palpitations. She has not had leg swelling. She is able to sleep laying down at night without any symptoms of shortness of breath. Her blood pressure log from home show s most of her blood pressures being 120/64-135/74 with some very few numbers in the 140 rang e. MEDICAL, SURGICAL, AND PERSONAL HISTORY Past Medical, Surgical, Family, and Social History are reviewed in EPIC. CURRENT PROBLEMS Patient Active Problem List Diagnosis Hypothyroidism VAGINITIS, [...] cervical region DDD (degenerative disc disease), cervical CURRENT MEDICATIONS Current Outpatient Prescriptions Medication Sig Dispense Refill albuterol 90 mcg/puff inhaler 2 puff po q 4 hours prn 1 Inhaler 0 amLODIPine (NORVASC) 10 MG tablet Take 10 mg by mouth Daily. BIOTIN PO Take 500 mg by mouth Daily. Calcium Citrate-Vitamin D (CITRACAL MAXIMUM PO) TABS Take one by mouth three times rafia y. (Patient taking differently: 2 times daily.) cetirizine (ZYRTEC) 10 mg tablet Take 10 mg by mouth as needed for Allergies. Cholecalciferol (D-5000 PO) Take 5,000 Units by mouth Daily. diclofenac (VOLTAREN) 1% GEL Apply 1 g topically Daily as needed. 100 g 0 diphenhydrAMINE (BENADRYL) 25 mg tablet Take 25 mg by mouth nightly as needed for Itchi ng. eszopiclone (LUNESTA) 2 MG TABS Take 1 tablet by mouth nightly. 90 tablet 0 fenofibrate (TRICOR) 48 mg tablet TAKE ONE TABLET BY MOUTH EVERY DAY 90 tablet 3 furosemide (LASIX) 20 mg tablet Take 1 tablet by mouth Daily. 90 tablet 1 GARLIC Take 1,250 mg by mouth Daily. Glucosamine-Chondroitin (COSAMIN DS PO) Take 2 tablets by mouth Daily. HYDROcodone-acetaminophen (NORCO) 7.5-325 mg per tablet One po qd prn pain, avoid routi ne use, 90 day supply 80 tablet 0 Iron 15 MG/1.5ML SUSP Take by mouth Every other day. PurAbsorb L-Lysine HCl 500 MG CAPS Take 500 mg by mouth Daily. levothyroxine (SYNTHROID, LEVOTHROID) 50 mcg tablet Take 50 mcg by mouth Twice daily lunch/dinner. magnesium-calcium carbonate (SLOW-MAG) 71.5-119 MG TBEC Take 71.5-119 mg by mouth Daily . Melatonin (MELATONIN MAXIMUM STRENGTH) 5 MG TABS Take 5 mg by mouth Daily as needed. (P atient taking differently: Take 3 mg by mouth nightly.) metoprolol succinate (TOPROL-XL) 50 mg 24 hr tablet TAKE ONE-HALF TABLET BY MOUTH EVERY DAY 45 tablet 3 Multiple Vitamins-Minerals (OCUVITE ADULT 50+) CAPS Take by mouth Daily. nitroglycerin (NITROSTAT) 0.[address] 1 tablet under the tongue every 5 helen dania as needed for Chest pain. 20 tablet 1 polyethylene glycol (MIRALAX) packet Take 17 g by mouth Daily as needed. Took it once o n the vitamin B-12 (CYANOCOBALAMIN) 1000 MCG tablet Take 1,000 mcg by mouth Daily. No current facility-administered medications for this visit. ALLERGIES Allergies Allergen Reactions Diclofenac Sodium Duodenal Ulcer October 2013 Alendronate Sodium Patient not remember Celecoxib Patient not remember Penicillins Caused "black diarrhea" when she had her 4th child. Risedronate Sodium Patient not remember ROS Review of Systems Constitutional: Negative for malaise/fatigue. Respiratory: Negative for shortness of breath. Cardiovascular: Negative for chest pain, palpitations and leg swelling. Musculoskeletal: Positive for myalgias, back pain and joint pain. Neurological: Negative for dizziness and weakness. Lightheaded = No OBJECTIVE: PHYSICAL EXAM BP 158/62 mmHg | Pulse 63 | Resp 14 | Ht 1.626 m (5' 4") | Wt 79.833 kg (176 lb) | BMI 30.2 0 kg/m2 Physical Exam Constitutional: She appears well-developed and well-nourished. No distress. Female individual without acute distress here with her son Neck: Normal carotid pulses, no hepatojugular reflux and no JVD present. Carotid bruit is n ot present. Cardiovascular: Normal rate, regular rhythm, S1 normal, S2 normal, intact distal pulses and normal pulses. PMI is not displaced. Exam reveals no gallop, no S3, no S4 and no friction rub. Murmur (grade 2/6 holosystolic murmur along left sternal border.) heard. Pulses: Carotid pulses are 2+ on the right side, and 2+ on the left side. Dorsalis pedis pulses are 2+ on the right side, and 2+ on the left side. Pulmonary/Chest: Effort normal and breath sounds normal. No accessory muscle usage. No resp iratory distress. She has no wheezes. She has no rhonchi. She has no rales. Abdominal: Normal appearance, normal aorta and bowel sounds are normal. She exhibits no abd ominal bruit. There is no hepatosplenomegaly. There is no tenderness. Musculoskeletal: She exhibits no edema. Neurological: She is alert. Gait normal. Skin: Skin is warm and dry. Psychiatric: She has a normal mood and affect. Her mood appears not anxious. She does not e xhibit a depressed mood. ECG: I personally independently reviewed ECG tracing during this visit (interpreted and bree led by another provider): Results for orders placed or performed in visit on 07/03/16 ECG 12 lead Result Value Ref Range INTERPRETATION TEXT Sinus rhythm with premature atrial complexes Minimal voltage criteria for LVH, may be normal variant Borderline ECG No previous ECG's available Confirmed by CHRISTOPHER ARECHIGA MD ([id number]) on 07/04/2016 6:13:25 AM LAB RESULTS reviewed during visit today primarily from [facility]: LIPID Lab Results Component Value Date CHOL 218* 09/26/2015 TRIG 98 09/26/2015 HDL 71 09/26/2015 LDL 127 09/26/2015 CHOLHDL 3.1 09/26/2015 LDLEX 125* 05/19/2015 HDLEX 63.5 05/19/2015 TRIGEX 80 05/19/2015 CHOLEX 204* 05/19/2015 CHEMISTRY Lab Results Component Value Date GLU 125* 11/07/2015 GLUEX 104* 05/08/2016 NA 136 11/07/2015 NAEX 134 05/08/2016 K 4.0 11/07/2015 KEX 3.9 05/08/2016 CL 98 11/07/2015 CLEX 98 05/08/2016 CO2 30 11/07/2015 CO2EX 28 05/08/2016 CALCIUM 9.4 11/07/2015 ALKPHOS 70 11/07/2015 AST 19 11/07/2015 ASTEX 17 05/08/2016 ALT 12 11/07/2015 ALTEX 12 05/08/2016 BILITOT 0.5 11/07/2015 CREA 0.74 11/07/2015 BUN 10 11/07/2015 EGFR 60 09/03/2012 EGFREX 81 05/08/2016 CREEX 0.70 05/08/2016 HEMATOLOGY Lab Results Component Value Date WBC 9.9 01/04/2016 WBCEX 10.2 05/08/2016 HGB 14.6 01/04/2016 HGBEX 15.5 05/08/2016 HCT 43.1 01/04/2016 HCTEX 47.2* 05/08/2016 PLT 367 01/04/2016 PLTEX 381 05/08/2016 I reviewed records from [facility] for office visit on 02which is s ummarized in the HPI. Stress Test 07/16/16, shows persantine EKG is negative, normal persantine sestamibi myocar dial perfusion study with a normal left ventricular size and wall thickness, preserved left ventricular systolic function, LVEF by gated SPECT 75%. Echocardiogram 07/16/16, shows mild left atrial dilatation, normal left ventricular size, w all thickness and motion, preserved left ventricular systolic function, LVEF is 65-70%, grad e 1 left ventricular diastolic dysfunction, mildly thickened trileaflet aortic valve with ad equate opening, there is a mild aortic valve insufficiency, mildly thickened and calcified m itral valve with a mild mitral valve regurgitant, a 0.7 x 1.2 x 1.8 cm hyperechoic, calcifie d nodule attached on posterior mitral valve leaflet, normal right-sided pressure, normal IVC with normal respiratory collapse, when compared to echocardiography on 10/25/14, posterior m itral valve leaflet calcified nodule is a new finding. Above data and testing is reviewed this visit; testing below is historical data unless othe rwise specified. ASSESSMENT: 1. Chest pain: A. Seen in the emergency room at [facility] for chest pain. Sh e was schedule for stress test and discharged home. B. Stress Test 05/16/16, is maximal asymptomatic stress test, [facility] very poor function status, achieving maximal heart rate with 1 minute and 23 seconds, the re was a questionable ST depression 1 mm in the lateral leads, however, there was some degre e of artifact, moderate risk on Kirk score of 1, recommend stress imaging modality. C. Stress Test 07/16/16, shows persantine EKG is negative, normal persantine sestamibi myocardial perfusion study with a normal left ventricular size and wall thickness, preserved left ventricular systolic function, LVEF by gated SPECT 75%. D. Echocardiogram 07/16/16, shows mild left atrial dilatation, normal left ventricular siz e, wall thickness and motion, preserved left ventricular systolic function, LVEF is 65-70%, grade 1 left ventricular diastolic dysfunction, mildly thickened trileaflet aortic valve wit h adequate opening, there is a mild aortic valve insufficiency, mildly thickened and calcifi ed mitral valve with a mild mitral valve regurgitant, a 0.7 x 1.2 x 1.8 cm hyperechoic, calc ified nodule attached on posterior mitral valve leaflet, normal right-sided pressure, normal IVC with normal respiratory collapse, when compared to echocardiography on 10/25/14, posteri or mitral valve leaflet calcified nodule is a new finding. E. Today, patient has less chest pain and dyspnea than her previous visit. She has been b ack to exercising on regular basis. There is no signs and symptoms of overt congestive hear t failure.She is in a class I of [place] [employer] functional class. There is n o fluid retention on physical examination. 2. Essential hypertension with goal blood pressure less than 130/80: A. Today, blood pressure is elevated, however, pressure from her lo g at home shows a normal blood pressure. 3. Heart murmur due to aortic valve insufficiency A. Echocardiogram, 11/03/2013 shows normal LV size and systolic func tion with LVEF 63%, mild aortic, mitral, and tricuspid insufficiency, RVSP 43-48 mm mercury, borderline to mild biatrial enlargement, compared to patient's prior study 2010, no signifi cant changes are noted. B. Echocardiogram 10/25/14 shows, normal left ventricular size, wal l thickness and motion, preserved left ventricular systolic function, LVEF is 65-70%, grade 1 left ventricular diastolic dysfunction, mildly thickened trileaflet aortic valve with adeq uate opening, there is a mild to moderate aortic valve insufficiency, mildly thickened and c alcified mitral valve with a mild mitral valve regurgitation, moderate mitral annular calcif ication, mild tricuspid valve regurgitation, mild pulmonary hypertension with a peak systoli c pressure of 35-40 mmHg, when compared to echocardiography on 11/03/13, there is no signific ant changes. 4. Dyslipidemia and elevated CRP A. CRP is 9.6 on 08/03/14. Patient discontinued the atorvastatin d ue to side effects and she is not willing to try any other statins at this point. PLAN: 1. The current medical regimen is effective; continue present plan and medications. She h as been encouraged to continue with her physical activity on a regular basis 2. She will follow up in 6 months, or sooner with concerns. Portions of this chart may have been created with [employer] voice recognition software. Occasi onal wrong-word or sound-alike substitutions may have occurred due to the inherent doe itations of voice recognition software. Please read the chart carefully and recognize, using context, where these substitutions have occurred. documented in th is encounter Plan of Treatment +--------+---------+ + + + | Date | Type | Specialty | Care Team | Description | +--------+---------+ + + + | 06/02/ | Office | Orthopedic Surgery | Ulysses Jensen, | | | 2019 | Visit | | MD Danny FLANNERY | | | | | | [place] [address] | | | | | | [id number] | | | | | | | | +--------+---------+ + + + | 11/21/ | Office | Cardiology | Yesi, | | | 2019 | Visit | | JOSE ALBERTO Linder [address] | | | | | | [place], | | | | | | [place] [address] | | | | | | [phone] | | | | | | | | +--------+---------+ + + + documented as of this encounter Visit Diagnoses + + | Diagnosis | + + | Aortic valve insufficiency, unspecified etiology - Primary | + + | Essential hypertension with goal blood pressure less than 130/80 | + + | Hyperlipidemia, mixed Mixed hyperlipidemia | + + documented in this encounter
--- OUTSIDE RECORDS SUMMARY | ~2019-04-12 | XMS | Encounter Summary ---
Demographics + + + | Address | [address] | | | [place] [address] | + + + | Home Phone | | + + + | Preferred Language | Unknown | + + + | Marital Status | | + + + | Baptism Affiliation | Unknown | + + + | Race | Unknown | + + + | Ethnic Group | Unknown | + + + Author + + + | Author | [facility] | | | and [place] | + + + | Organization | [facility] | | | and [place] | + + + | Address | Unknown | + + + | Phone | Unavailable | + + + Support + + + + + | Name | Relationship | Address | Phone | + + + + + | Osmin Jackson | ECON | [address] | | | | | [place] [address] | | + + + + + | Hunter Jackson | ECON | [place] | | + + + + + | Wes Jackson | ECON | [place], [place] | | + + + + + | Oziel Jackson | ECON | [place], [place] | | + + + + + Care Team Providers + +------+ + | Care Bad Credit Collector Name | Role | Phone | + [...] | | | atherosclero | | [address] | | | | | sis of | | [place], | | | | | unspecified | | [place] [address] | | | | | type of | | Phone: | | | | | vessel, | | [phone] | | | | | ekw[place] or | | Fax: | | | | | graft | | [phone] | | | | | Coronary | | | | | | | atherosclero | | | | | | | sis of | | | | | | | unspecified | | | | | | | type of | | | | | | | vessel, | | | | | | | ekwok or | | | | | | | graft | | | | | | | Procedures | | | | | | | DE ENDOSCOPY | | | | | | | | | | | | | | W/VIDEO-ASST | | | | | | | VEIN | | | | | | | HARVEST,CABG | | | | | | | DE CABG, | | | | | | | ARTERY-VEIN, | | | | | | | FOUR DE | | | | | | | CABG, | | | | | | | ARTERIAL, | | | | | | | SINGLE | | | +--------+--------+ + + + + Encounter Details +--------+ + + + + | Date | Type | Department | Care Team | Description | +--------+ + + + + | 10/31/ | Hospital | [facility] | Amna Benavides, | Coronary artery | | 2017 | Encounter | [facility] | PA-C [address] | disease, angina | | | | ELECTROD[facility]NO[facility] | [address] [place], [place] | presence | | | | [address] | [address] | unspecified, | | | | [place] | | unspecified vessel | | | | [address] | | or lesion type, | | | | [phone] | | unspecified whether | | | | | | ekwok or | | | | | | transplanted heart; | | | | | | Valvular heart | | | | | | disease | +--------+ + + + + Social [...] | | | | | | [place] [address] | | | | | | [phone] | | | | | | | | +--------+---------+ + + + documented as of this encounter Procedures + +--------+ + + + | Procedure Name | Priori | Date/Time | Associated Diagnosis | Comments | | | ty | | | | + +--------+ + + + | ECG 12 LEAD | Routin | 10/31/2016 | Coronary artery | Results for this | | | e | 3:31 PM | disease, angina | procedure are in the | | | | PDT | presence | results section. | | | | | unspecified, | | | | | | unspecified vessel | | | | | | or lesion type, | | | | | | unspecified whether | | | | | | ekw[place] or | | | | | | transplanted heart | | | | | | Valvular heart | | | | | | disease | | + +--------+ + + + documented in this encounter Results ECG 12 lead (10/31/2016 3:31 PM PDT) + + | Specimen | + + | | + + + + + | Narrative | Performed At | + + + | HEART RATE:55 | [facility] | | bpmRR Interval:1091 msAtrial Rate:55 msP-R Interval:140 msP | [facility] | | Duration:148 msP Horizontal [place]:24 degP Front [place]:69 degQ Onset:512 | | | msQRSD Interval:84 msQT Interval:424 msQTcB:406 msQTcF:412 msQRS | | | Horizontal [place]:4 degQRS [place]:36 degI-40 Horizontal [place]: degI-40 | | | Front [place]:30 degT-40 Horizontal [place]:-7 degT-40 Front [place]:36 degT | | | Horizontal [place]:60 degT Wave [place]:61 degS-T Horizontal [place]:108 degS-T | | | Front [place]:89 degSeverity:- ABNORMAL ECG -INTERP:SINUS | | | RHYTHMINTERP:CONSIDER LEFT VENTRICULAR HYPERTROPHYElectronically | | | signed by: Ramin PEREZ 11-01-2016 06:15:12 | | |QTcB:406 ms | | |QTcF:412 ms | | |QRS Horizontal [place]:4 deg | | |QRS [place]:36 deg | | |I-40 Horizontal [place]: deg | | |I-40 Front [place]:30 deg | | |T-40 Horizontal [place]:-7 deg | | |T-40 Front [place]:36 deg | | |T Horizontal [place]:60 deg | | |T Wave [place]:61 deg | | |S-T Horizontal [place]:108 deg | | |S-T Front [place]:89 deg | | |Severity:- ABNORMAL ECG - | | |INTERP:SINUS RHYTHM | | |INTERP:CONSIDER LEFT VENTRICULAR HYPERTROPHY | | |Electronically signed by: Ramin PEREZ 11-01-2016 06:15:12 | | + + + + + + + + | Performing | Address | City/State/Zipcode | Phone Number | | Organization | | | | + + + + + | [facility] | [address] | [place] [address] | [phone] | + + + + + documented in this encounter Visit Diagnoses + + | Diagnosis | + + | Coronary artery disease, angina presence unspecified, unspecified vessel or lesion | | type, unspecified whether [place]kw[place] or transplanted heart | + + | Valvular heart disease Endocarditis, valve unspecified, unspecified cause | + + documented in this encounter"
--- OUTSIDE RECORDS SUMMARY | ~2019-04-12 | XMS | Encounter Summary ---
Demographics + + + | Address | [address] | | | [place] [address] | + + + | Home Phone | | + + + | Preferred Language | Unknown | + + + | Marital Status | | + + + | Mandaen Affiliation | Unknown | + + + | Race | Unknown | + + + | Ethnic Group | Unknown | + + + Author + + + | Author | [facility] | | | and [place] | + + + | Organization | [facility] | | | and [place] | + + + | Address | Unknown | + + + | Phone | Unavailable | + + + Support + + + + + | Name | Relationship | Address | Phone | + + + + + | Osmin Jackson | ECON | [address] | | | | | [place] [address] | | + + + + + | Hunter Jackson | ECON | [place] | | + + + + + | Wes Jackson | ECON | [place], [place] | | + + + + + | Oziel Jackson | ECON | [place], [place] | | + + + + + Care Team Providers + +------+ + | Care Care Aid Name | Role | Phone | + +------+ + | Rodolfo Cruz MD | PCP | | + +------+ + Reason for Visit + + + | Reason | Comments | + + + | Follow-up | 3 week- symptoms still come and go | + + + Encounter Details +--------+---------+ + + + | Date | Type | Department | Care Team | Description | +--------+---------+ + + + | 11/26/ | Office | [facility] | Rodolfo Cruz, | Memory loss (Primary | | 2016 | Visit | MEDICINE [address] | [address] | Dx); [place], | | | | [address] [place] | [place] | unspecified | | | | [place] [address] | [address] | | | | | [phone] | | | +--------+---------+ + + + [...] + + + | Blood Pressure | 128/62 | 11/27/2015 11:50 AM | | | | | PDT | | + + + + + | Pulse | 68 | 11/27/2015 11:50 AM | | | | | PDT | | + + + + + | Temperature | 36.7 C (98 F) | 11/27/2015 11:50 AM | | | | | PDT | | + + + + + | Respiratory Rate | 16 | 11/27/2015 11:50 AM | | | | | PDT | | + + + + + | Oxygen Saturation | 99% | 11/27/2015 11:50 AM | | | | | PDT | | + + + + + | Inhaled Oxygen | - | - | | | Concentration | | | | + + + + + | Weight | 82.1 kg (181 lb) | 11/27/2015 11:50 AM | | | | | PDT | | + + + + + | Height | 162.6 cm (5' 4") | 11/27/2015 11:50 AM | | | | | PDT | | + + + + + | Body Mass Index | 31.07 | 11/27/2015 11:50 AM | | | | | PDT | | + + + + + documented in this encounter Progress Notes Rodolfo Cruz MD - 11/27/2015 12:18 PM PDTFormatting of this note might be different f rom the original. Subjective: Patient ID: Soumya Jackson is a 80 y.o. female. HPI Uticaria, Recent episode "hot chills" Itchy welts, Numbness more than the usual. No raúl rgy. With ER visit in [place] last week. This is persisting except for the welts. "I'm stressed at work." There is some vertigo with this at time. Waking up off and on Through the night. Has a daily rest. There is no complaint of SOB or SOB. She was also shaky and this comes before and after meals. My memory is fine but not as good as it was before. He r friend agrees with this. She does not orget peoples names or words. She does not get con fused. Her friend does think she forgets some things at time. Recent monitoring glucose all in 90's to 110's. Review of Systems Objective: Physical Exam Heent, WNL, No carotid bruit Chest CTAB Heart RR&R /s M Abd S,NT,ND,BS+ Ext, no CCor E Neuro Non-focal Lymph, no cervical, axillary, inguinal adenopathy Musculoskeletal, no gross deformity or loss or range of motion Skin, no gross lesions Assessment: 1. Memory loss Vitamin B-12 Vitamin D, 25-Hydroxy 2. Urticaria, unspecified Sedimentation Rate Plan: A couple labs today. She looks and feels at baseline. I'm not shure what her global pict ure is here but she may have an early dementia with anxiety from this,. She declines neuro logic consult re this at this point, Will consider a neurologist in the future. 25min was spent with the patient of which greater than 50% was spending in counseling regarding above. documented in this encounter Plan of Treatment [...] W | | | | | | [place], | | | | | | [place] [address] | | | | | | [phone] | | | | | | | | +--------+---------+ + + + documented as of this encounter Results Sedimentation Rate (11/27/2015 12:55 PM PDT) + +--------+ + + + | Component | Value | Ref Range | Performed | Pathologist | | | | | At | Signature | + +--------+ + + + | ESR | 30 (H) | <30 mm/hr | [facility] | | | | | | [facility] [...] | [address] | [place] | [phone] | | [facility] | | [address] | | | - LABORATORY | | | | + + + + + Vitamin D, 25-Hydroxy (11/27/2015 12:55 PM PDT) + +---------+ + + + | Component | Value | Ref Range | Performed | Pathologist | | | | | At | Signature | + +---------+ + + + | Vitamin D, | 100 (H) | 30 - 80 ng/mL | [facility] | | | 25 Hydroxy | | | [facility] | | | | | [...] [address] | [place] | [phone] | | [facility] | | [address] | | | - LABORATORY | | | | + + + + + Vitamin B-12 (11/27/2015 12:55 PM PDT) + + + + + + | Component | Value | Ref Range | Performed | Pathologist | | | | | At | Signature | + + + + + + | VITAMIN | 1,561 (H)Comment: | 180 - 914 pg/mL | [facility] | | | B-12 | DEFICIENT: | | [facility] | | | | <145 | | MEDICAL | | | | pg/mLINDETERMINATE: | | CENTER - | | | | 145-180 pg/mL THIS B12 | | LABORATORY | | | | HAS BEEN REPEATED WITH A | | | | | | DILUTION PROCEDURE TO | | | | | | CALCULATE A RESULT | | | | | | GREATER THAN 1500 pg/mL. | | | | | | THE ASSAY HAS NOT BEEN | | | | | | VALIDATED FOR THIS | | | | | | HIGHER RANGE, AND | | | | | | RESULTS SHOULD BE | | | | | | INTERPRETED WITH | | | | | | CAUTION. | | | | + + + + + + + + | Specimen | + + | Blood | + + + + + + + | Performing | Address | City/State/Zipcode | Phone Number | | Organization | | | | + + + + + | [facility] | [address] | [place] | [phone] | | [facility] | | [address] | | | - LABORATORY | | | | + + + + + documented in this encounter Visit Diagnoses + + | Diagnosis | + + | Memory loss - Primary | + + | Urticaria, unspecified | + + documented in this encounter
--- OUTSIDE RECORDS SUMMARY | ~2019-04-12 | XMS | Encounter Summary ---
Demographics + + + | Address | [address] | | | [place] [address] | + + + | Home Phone | | + + + | Preferred Language | Unknown | + + + | Marital Status | | + + + | Gnosticist Affiliation | Unknown | + + + | Race | Unknown | + + + | Ethnic Group | Unknown | + + + Author + + + | Author | [facility] | | | and [place] | + + + | Organization | [facility] | | | and [...] | | | | | [place] [address] | | + + + + + | Hunter Jackson | ECON | [place] | | + + + + + | Wes Jackson | ECON | [place], [place] | | + + + + + | Oziel Jackson | ECON | [place], [place] | | + + + + + Care Team Providers + +------+ + | Care Movie Theater Usher Name | Role | Phone | + [...] Description | +--------+--------+ + + + | 10/28/ | Refill | [facility] | Rodolfo Cruz, | Medication Refill | | 2013 | | MEDICINE [address] | [place] [address] | | | | | [place] | [place] | | | | | [place] [address] | [address] | | | | | [phone] | | | +--------+--------+ + + + [...] | | | | | | [place] [address] | | | | | | [phone] | | | | | | | | +--------+---------+ + + + documented as of this encounter Visit Diagnoses + + | Diagnosis | + + | Thoracic sprain and strain, subsequent encounter - Primary | + + documented in this encounter"
--- OUTSIDE RECORDS SUMMARY | ~2019-04-12 | XMS | Encounter Summary ---
Demographics + + + | Address | [address] | | | [place] [address] | + + + | Home Phone | | + + + | Preferred Language | Unknown | + + + | Marital Status | | + + + | Jew Affiliation | Unknown | + + + | Race | Unknown | + + + | Ethnic Group | Unknown | + + + Author + + + | Author | [facility] | | | and [place] | + + + | Organization | [facility] | | | and [place] | + + + | Address | Unknown | + + + | Phone | Unavailable | + + + Support + + + + + | Name | Relationship | Address | Phone | + + + + + | Osmin Jackson | ECON | [address] | | | | | [place] [address] | | + + + + + | Hunter Jackson | ECON | [place] | | + + + + + | Wes Jackson | ECON | [place], [place] | | + + + + + | Oziel Jackson | ECON | [place], [place] | | + + + + + Care Team Providers + +------+ + | Care Assembly Line Upholsterer Name | Role | Phone | + +------+ + | Gunderson, Kellie PA | PCP | | + +------+ + Encounter Details +--------+---------+ + + + | Date | Type | Department | Care Team | Description | +--------+---------+ + + + | 10/16/ | Office | [facility] | [place], | Aortic valve | | 2018 | Visit | CARDIOLOGY [address] | [address] [address] | insufficiency, | | | | [place], | [place], | etiology of cardiac | | | | [place] [address] | [place] [address] | valve disease | | | | [phone] | [phone] | unspecified (Primary | | | | | | Dx); Coronary | | | | | | artery disease | | | | | | involving cheesh-na | | | | | | coronary artery of | | | | | | cheesh-na heart with | | | | | | unstable angina | | | | | | pectoris (HCC); | | | | | | Essential | | | | | | hypertension with | | | | | | goal blood pressure | | | | | | less than 130/80; | | | | | | Inflammation of | | | | | | blood vessels (HCC); | | | | | | Murmur; Transient | | | | | | cerebral ischemia, | | | | | | unspecified type; | | | | | | Valvular heart | | | | | | disease | +--------+---------+ + + + Social History [...] + + + | Blood Pressure | 118/62 | 10/16/2017 4:11 PM | | | | | PDT | | + + + + + | Pulse | 76 | 10/16/2017 4:11 PM | | | | | PDT | | + + + + + | Temperature | - | - | | + + + + + | Respiratory Rate | 16 | 10/16/2017 4:11 PM | | | | | PDT | | + + + + + | Oxygen Saturation | - | - | | + + + + + | Inhaled Oxygen | - | - | | | Concentration | | | | + + + + + | Weight | 81.1 kg (178 lb 12.7 | 10/16/2017 4:11 PM | | | | oz) | PDT | | + + + + + | Height | 165.1 cm (5' 5") | 10/16/2017 4:11 PM | | | | | PDT | | + + + + + | Body Mass Index | 29.75 | 10/16/2017 4:11 PM | | | | | PDT | | + + + + + documented in this encounter Progress Notes Niyah Key ARNP - 10/16/2017 4:30 PM PDTFormatting of this note might be differen t from the original. PATIENT NAME: Soumya Jackson : 1935: AGE: 82 y.o. PRIMARY CARE: FLORA [facility] OUTPATIENT FOLLOW UP VISIT Date of Service: 10/16/2017 HISTORY OF PRESENT ILLNESS: Soumya Jackson is a 82 y.o. female with a history of coronary artery disease post CABG 3 on 11/01/16, moderate aortic valve insufficiency, essential hypertension, osteoarthritis, h ypothyroidism, dyslipidemia, elevated CRP. She was last seen 09/12/2017 at which time she was to increase Lisinopril 20 mg (that's 2 tab lets of 10 mg) every evening, check blood pressure and pulse twice daily 30 -60 minutes afte r pills for two weeks and return the log to our office, and follow up in 6 months. Siince that time, she has been doing "okay". She continues to have struggles with sleeping . She was recently started on sertraline and on BuSpar to see if this weren't to help with her insomnia and anxiety. She hasn't had any chest pain. She has been starting to walk mor e often. She has not had any increasing shortness of breath. She is planning on retiring november. She has a sleep apnea study scheduled in [place] next month MEDICAL, SURGICAL, AND PERSONAL HISTORY Past Medical, Surgical, Family, and Social History are reviewed in [facility]. CURRENT PROBLEMS Patient Active Problem List Diagnosis Hypothyroidism VAGINITIS, ATROPHIC Hyperlipidemia, mixed DIZZINESS OSTEOPOROSIS Osteoarthritis Hepatitis A in 1967 FATIGUE GERD TIA Valvular heart disease SPONDYLOSIS, CERVICAL Asthma EXTRINSIC ASTHMA, UNSPECIFIED OSTEOARTHRITIS, CARPOMETACARPAL JOINT, RIGHT THUMB HERPES ZOSTER ABDOMINAL PAIN, RIGHT UPPER QUADRANT Lacunar infarction PERIPHERAL NEUROPATHY Vertigo Preventative health care Multiple contusions Right ankle pain Gastroenteritis Bronchitis DJD (degenerative joint disease) GI bleed Anemia due to blood loss, [...] cervical Cervical radiculopathy Coronary artery disease involving cheesh-na coronary artery of cheesh-na heart with unstable angina pectoris Stress hyperglycemia Psychophysiologic insomnia CURRENT MEDICATIONS Current Outpatient Prescriptions Medication Sig Dispense Refill amLODIPine (NORVASC) 10 MG tablet Take 10 mg by mouth Daily. aspirin 81 mg chewable tablet Take 2 tablets by mouth Daily. 30 tablet 2 atorvaSTATin (LIPITOR) 40 mg tablet Take 1 tablet by mouth nightly. 90 tablet 3 BIOTIN PO Take 500 mg by mouth Daily. busPIRone (BUSPAR) 5 mg tablet Daily. Can take twice a day if needed Calcium Citrate-Vitamin D (CITRACAL MAXIMUM PO) TABS Take one by mouth three times rafia y. Cholecalciferol (D-5000 PO) Take 5,000 Units by mouth Daily. diclofenac (VOLTAREN) 1% GEL Apply 1 g topically Daily as needed. 100 g 0 furosemide (LASIX) 40 mg tablet Take 20 mg by mouth Daily. gabapentin (NEURONTIN) 300 mg capsule Take 300 mg by mouth once. GARLIC Take 1,000 mg by mouth Daily. Glucosamine-Chondroitin (COSAMIN DS PO) Take 2 tablets by mouth Daily. HYDROcodone-acetaminophen (NORCO) 7.5-325 mg per tablet as needed. L-Lysine HCl 500 MG CAPS Take 500 mg by mouth Daily. levothyroxine (SYNTHROID, LEVOTHROID) 50 mcg tablet Take 50 mcg by mouth Twice daily wi lunch/dinner. lisinopril (PRINIVIL, ZESTRIL) 10 mg tablet Take 2 tablets by mouth Daily. 60 tablet 3 magnesium-calcium carbonate (SLOW-MAG) 71.5-119 MG TBEC Take 71.5-119 mg by mouth Daily . Melatonin (MELATONIN MAXIMUM STRENGTH) 5 MG TABS Take 5 mg by mouth Daily as needed. metoprolol tartrate (LOPRESSOR) 25 mg tablet Take 1 tablet by mouth 2 times daily. 180 tablet 3 Multiple Vitamins-Minerals (OCUVITE ADULT 50+) CAPS Take by mouth Daily. omeprazole (PRILOSEC) 20 mg capsule Take 20 mg by mouth every morning (before breakfast ). sertraline (ZOLOFT) 50 mg tablet vitamin B-12 (CYANOCOBALAMIN) 1000 MCG tablet Take 1,000 mcg by mouth Daily. No current facility-administered medications for this visit. ALLERGIES Allergies Allergen Reactions Iodinated Diagnostic Agents Hives Diclofenac Sodium Other (See Comments) Duodenal Ulcer October 2013 Alendronate Sodium Patient not remember Celecoxib Celebrex - Patient not remember Risedronate Sodium Actonel - Patient not remember Penicillins Diarrhea Caused "black diarrhea" when she had her 4th child. Yellow Dye Itching ROS Review of Systems Constitutional: Positive for malaise/fatigue. Respiratory: Negative for shortness of breath. Cardiovascular: Negative for chest pain, palpitations and leg swelling. Neurological: Positive for weakness. Negative for dizziness. Lightheaded = No OBJECTIVE: PHYSICAL EXAM BP 118/62 | Pulse 76 | Resp 16 | Ht 1.651 m (5' 5") | Wt 81.1 kg (178 lb 12.7 oz) | BM I 29.75 kg/m Physical Exam Constitutional: She appears well-developed and well-nourished. No distress. Female individual without acute distress here by herself Neck: Normal carotid pulses, no hepatojugular reflux and no JVD present. Carotid bruit is n ot present. Cardiovascular: Normal rate, regular rhythm, S1 normal, S2 normal, intact distal pulses and normal pulses. PMI is not displaced. Exam reveals no gallop, no S3, no S4 and no friction rub. Murmur (grade 1/6 holosystolic murmur along left sternal border.) heard. [...] is alert. Gait normal. Skin: Skin is warm, dry and intact. Psychiatric: She has a normal mood and affect. Her mood appears not anxious. She does not e xhibit a depressed mood. ECG: I personally independently reviewed ECG tracing during this visit (interpreted and bree led by another provider): Results for orders placed or performed in visit on 10/16/2017 ECG 12 lead Result Value Ref Range INTERPRETATION TEXT she is in sinus rhythm with premature supraventricular complexes, heart rate 76 bpm LAB RESULTS reviewed during visit today primarily from [facility]: LIPID Lab Results Component Value Date CHOL 218 (H) 09/26/2015 TRIG 98 09/26/2015 HDL 71 09/26/2015 LDL 127 09/26/2015 CHOLHDL 3.1 09/26/2015 LDLEX 125 (A) 05/19/2015 HDLEX 63.5 05/19/2015 TRIGEX 80 05/19/2015 CHOLEX 204 (A) 05/19/2015 CHEMISTRY Lab Results Component Value Date GLU 114 (H) 11/06/2016 GLUEX 107 (A) 09/18/2016 NA 136 11/06/2016 NAEX 133 09/18/2016 K 4.0 11/06/2016 KEX 4.3 09/18/2016 CL 100 11/06/2016 CLEX 97 09/18/2016 CO2 29 (H) 11/06/2016 CO2EX 27 09/18/2016 CALCIUM 8.6 11/06/2016 ALKPHOS 70 11/07/2015 AST 19 11/07/2015 ASTEX 18 09/18/2016 ALT 12 11/07/2015 ALTEX 10 09/18/2016 BILITOT 0.5 11/07/2015 CREA 0.44 (L) 11/06/2016 BUN 7 (L) 11/06/2016 EGFR >60 11/06/2016 EGFREX 86 09/18/2016 CREEX 0.66 (A) 09/18/2016 HEMATOLOGY Lab Results Component Value Date WBC 17.2 (H) 11/04/2016 WBCEX 11.2 (A) 07/21/2017 HGB 9.7 (L) 11/04/2016 HGBEX 14.1 (A) 07/21/2017 HCT 29.0 (L) 11/04/2016 HCTEX 42.7 07/21/2017 PLT 205 11/04/2016 PLTEX 336 07/21/2017 I reviewed records from [facility] for Stress test results on 10/29 17 which is summarized in the HPI. Stress test 10/16/2017 shows Regadenoson EKG is negative, normal Regadenoson Sestamibi myocar dial perfusion study with a normal left ventricular size and wall thickness, evidence of inf erior wall soft tissue attenuation, preserved left ventricular systolic function, LVEF by olga martinez SPECT 76 % by Christopher Simms MD. Above data and testing is reviewed this visit; testing below is historical data unless othe rwise specified. ASSESSMENT: 1. Coronary artery disease A. Seen at [facility] they had EKG and sent her home stating it was GERD B. Seen in the emergency room at [facility] for chest pain. Sh e was schedule for stress test and discharged home. C. Stress Test 05/16/16, is maximal asymptomatic stress test, [facility] er very poor function status, achieving maximal heart rate with 1 minute and 23 seconds, the re was a questionable ST depression 1 mm in the lateral leads, however, there was some degre e of artifact, moderate risk on Kirk score of 1, recommend stress imaging modality. D. Stress Test 07/16/16, shows persantine EKG is negative, normal persantine sestamibi myocardial perfusion study with a normal left ventricular size and wal l thickness, preserved left ventricular systolic function, LVEF by gated SPECT 75%. E. Echocardiogram 07/16/16, shows mild left atrial dilatation, norm al left ventricular size, wall thickness and motion, preserved left ventricular systolic fun ction, LVEF is 65-70%, grade 1 left ventricular diastolic dysfunction, mildly thickened tril eaflet aortic valve with adequate opening, there is a mild aortic valve insufficiency, mildl y thickened and calcified mitral valve with a mild mitral valve regurgitant, a 0.7 x 1.2 x 1 .8 cm hyperechoic, calcified nodule attached on posterior mitral valve leaflet, normal right -sided pressure, normal IVC with normal respiratory collapse, when compared to echocardiogra phy on 10/25/14, posterior mitral valve leaflet calcified nodule is a new finding. F. Left Heart Catheterization 10/16/2016 shows severe three-vessel co ronary artery disease, high-grade 90% stenosis to the proximal portion of the LAD, proximal portion of the first diagonal artery, midportion of the left circumflex artery, there is als o high-grade 90% stenosis sequential lesions at the proximal and midportion of the RCA, ther e is a right dominate circulation, normal LV systolic function with an EF of 65% systemic bl ood pressure is normal, there was successful hemostasis with a TR hemostatic band. G. ORA Echocardiogram 11/01/2016 shows normal LV function EF 65, mil d concentric hypertrophy (11 mm) normal wall motion, normal RV, normal atria and LA appendag e, no shunt by CFD. Calcifed ~ 1 cm area in posterior mitral annulus, otherwise valve struct ure relatively normal, mild central MR, trace central AI, no , trace TR, trace MA, normal aorta other than mild calcification at ST junction, normal diameter, normal PA, no effusions . H. Coronary artery bypass surgery x 3 11/01/2016 shows VERDUZCO to LAD, saphenous vein graft to diagonal, saphenous vein graft to right coronary artery, endoscopi c vein harvest, left greater saphenous vein by Dr. Loo. I. Vas segmental pressures legs 07/02/2017 Normal segmental pressure s of lower extremities. Faustino Olivas MD. J. Stress test 10/16/2017 shows Regadenoson EKG is negative, normal Regadenoson S estamibi myocardial perfusion study with a normal left ventricular size and wall thickness, evidence of inferior wall soft tissue attenuation, preserved left ventricular systolic funct ion, LVEF by gated SPECT 76 % by MD. Shirin Lazo. patient has no angina or dyspnea, she is trying to be more active and trying to walk mo re often. Her sleep deprivation apparently is causing the majority of her issues. She is in a class I-II of [place] [employer] functional class.on physical examination the re is no sign of fluid overload. 2. Essential hypertension with goal blood pressure less than 130/80: A. Today, blood pressure is well-controlled 3. Heart murmur due to aortic valve [...] CRP A. CRP is 9.6 on 08/03/14. B. She was back on Lipitor after open heart surgery. PLAN: 1. Results of the stresses have been discussed with the patient. 2. The current medical regimen is effective; continue present plan and medications. 3. She will follow up in 6 months, or sooner with concerns. Portions of this chart may have been created with [employer] voice recognition software. Occasi onal wrong-word or [...] [place] | | | | | | [id number] | | | | | | | | +--------+---------+ + + + | 11/21/ | Office | Cardiology | Yes[place], | | | 2019 | Visit | | [facility] [address] | | | | | | [place] | | | | | | [place] [address] | | | | | | [phone] | | | | | | | | +--------+---------+ + + + documented as of this encounter Procedures + +--------+ + + + | Procedure Name | Priori | Date/Time | Associated Diagnosis | Comments | | | ty | | | | + +--------+ + + + | ECG 12 LEAD | Routin | 10/16/2017 | Aortic valve | Results for this | | | e | 4:23 PM | insufficiency, | procedure are in the | | | | PDT | etiology of cardiac | results section. | | | | | valve disease | | | | | | unspecified | | | | | | Coronary artery | | | | | | disease involving | | | | | | cheesh-na coronary | | | | | | artery of cheesh-na | | | | | | heart with unstable | | | | | | angina pectoris | | | | | | ([facility]) Essential | | | | | | hypertension with | | | | | | goal blood pressure | | | | | | less than 130/80 | | | | | | Inflammation of | | | | | | blood vessels ([facility]) | | | | | | Murmur Transient | | | | | | cerebral ischemia, | | | | | | unspecified type | | | | | | Valvular heart | | | | | | disease | | + +--------+ + + + documented in this encounter Results ECG 12 lead (10/16/2017 4:23 PM PDT) + + + + + + | Component | Value | Ref Range | Performed | Pathologist | | | | | At | Signature | + + + + + + | VENTRICULAR | 76 | BPM | [facility] | | | RATE EKG | | | | | + + + + + + | ATRIAL RATE | 76 | BPM | [facility] | | + + + + + + | P-R | 140 | ms | [facility] | | | INTERVAL | | | | | + + + + + + | QRS | 86 | ms | [facility] | | | DURATION | | | | | + + + + + + | Q-T | 366 | ms | [facility] | | | INTERVAL | | | | | + + + + + + | Q-T | 411 | ms | [facility] | | | INTERVAL | | | | | | (CORRECTED) | | | | | + + + + + + | P WAVE AXIS | 62 | degrees | [facility] | | + + + + + + | QRS AXIS | 48 | degrees | [facility] | | + + + + + + | T AXIS | 136 | degrees | [facility] | | + + + + + + | INTERPRETAT | Sinus rhythm with | | [facility] | | | ION TEXT | premature | | | | | | supraventricular | | | | | | complexesBiatrial | | | | | | enlargementNonspecific | | | | | | ST-T | | | | | | abnormalities.Abnormal | | | | | | ECGWhen compared with | | | | | | ECG of 12-SEP-2017 | | | | | | 14:16,premature | | | | | | supraventricular | | | | | | complexes are now | | | | | | presentNonspecific T | | | | | | wave abnormality now | | | | | | evident in Inferior | | | | | | leadsT wave inversion | | | | | | now evident in Lateral | | | | | | leadsConfirmed by | | | | | | CHRISTOPHER SIMMS MD | | | | | | ([id number]) on 10/16/2017 | | | | | | 4:36:18 PM | | | | + + + + + + + + | Specimen | + + | | + + + + + | Narrative | Performed At | + + + | | | + + + + +---------+ + + | Performing | Address | City/State/Zipcode | Phone Number | | Organization | | | | + +---------+ + + | [facility] | | | | + +---------+ + + documented in this encounter Visit Diagnoses + + | Diagnosis | + + | Aortic valve insufficiency, etiology of cardiac valve disease unspecified - Primary | + + | Coronary artery disease involving cheesh-na coronary artery of cheesh-na heart with unstable | | angina pectoris (HCC) | + + | Essential hypertension with goal blood pressure less than 130/80 | + + | Inflammation of blood vessels (HCC) Arteritis, unspecified | + + | Murmur Undiagnosed cardiac murmurs | + + | Transient cerebral ischemia, unspecified type | + + | Valvular heart disease Endocarditis, valve unspecified, unspecified cause | + + documented in this encounter
--- OUTSIDE RECORDS SUMMARY | ~2019-04-12 | XMS | Encounter Summary ---
Demographics + + + | Address | [address] | | | [place] [address] | + + + | Home Phone | | + + + | Preferred Language | Unknown | + + + | Marital Status | | + + + | Yarsanism Affiliation | Unknown | + + + | Race | Unknown | + + + | Ethnic Group | Unknown | + + + Author + + + | Author | [facility] | | | and [place] | + + + | Organization | [facility] | | | and [place] | + + + | Address | Unknown | + + + | Phone | Unavailable | + + + Support + + + + + | Name | Relationship | Address | Phone | + + + + + | Osmin Jackson | ECON | [address] | | | | | [place] [address] | | + + + + + | Hunter Jackson | ECON | [place] | | + + + + + | Wes Jackson | ECON | [place], [place] | | + + + + + | Oziel Jackson | ECON | [place], [place] | | + + + + + Care Team Providers + +------+ + | Care Filteration Operator Name | Role | Phone | + +------+ + | Rodolfo Cruz MD | PCP | | + +------+ + Encounter Details +--------+ + + + + | Date | Type | Department | Care Team | Description | +--------+ + + + + | 05/08/ | Hospital | [facility] | Beatriz Faust | | | 2010 | Encounter | [facility] | DO Danny Padron | | | | | [address] [facility] | [place], [place] | | | | | [place], [place] | [address] | | | | | [address] | | | | | | [phone] | | | +--------+ + + + [...] + + + +---------+ + + | Albuterol Sulfate | AERS Inhale 2-3 | | 0 | 11/17/19 | | | (VENTOLIN HFA IN) | Puffs by mouth every | | | 11 | 3 | | | 4-6 hours as needed | | | | | | | for cough or | | | | | | | wheezing | | | | | + + [...] 1 tablet by | | 0 | 06/04/19 | | | Glucosamine-Chondroi | mouth 2 times daily. | | | 11 | 4 | | t-Vit C-Mn ([facility] | | | | | | | GLUCOSAMINE-CHONDROI | | | | | | | TIN) TABS | | | | | | + + + +---------+ + + | | take 1 cap by mouth | | 0 | 06/04/19 | | | Glucosamine-Chondroi | three times daily | | | 11 | 4 | | t-Vit C-Mn ([facility] | | | | | | | GLUCOSAMINE-CHONDROI | | | | | | | TIN) TABS | | | | | | + + + +---------+ + + | KRILL OIL 1000 MG | Take 1,000 mg by | | 0 | 06/04/19 | | | CAPS | mouth Daily. | | | 11 | 4 | + + + +---------+ + + | metoprolol | Take 50 mg by mouth | | 0 | 07/05/19 | | | succinate (TOPROL | Daily. Taking / | | | 11 | 3 | | XL) 50 mg 24 hr | tab daily | | | | | | tablet | | | | | | + + + +---------+ + + | metoprolol | Take 50 mg by mouth | | 0 | 07/05/19 | | | succinate (TOPROL | Daily. | | | 11 | 2 | | XL) 50 mg 24 hr | | | | | | | tablet [...] | | | | | | [place], [place] | | | | | | [address] | | | | | | | | +--------+---------+ + + + | 11/21/ | Office | Cardiology | Yesi, | | | 2019 | Visit | | JOSE ALBERTO Linder [address] | | | | | | [place], | | | | | | [place] [address] | | | | | | [phone] | | | | | | | | +--------+---------+ + + + documented as of this encounter Procedures + +--------+ + + + | Procedure Name | Priori | Date/Time | Associated Diagnosis | Comments | | | ty | | | | + +--------+ + + + | CBC WITH | Routin | 05/08/2011 | | Results for this | | DIFFERENTIAL | e | 10:32 AM | | procedure are in the | | | | PST | | results section. | + +--------+ + + + | LIPASE | Routin | 05/08/2011 | | Results for this | | | e | 10:32 AM | | procedure are in the | | | | PST | | results section. | + +--------+ + + + | COMPREHENSIVE | Routin | 05/08/2011 | | Results for this | | METABOLIC PANEL | e | 10:32 AM | | procedure are in the | | | | PST | | results section. | + +--------+ + + + documented in this encounter Results Comprehensive Metabolic Panel (05/08/2011 10:32 AM PST) + + + + + + | Component | Value | Ref Range | Performed | Pathologist | | | | | At | Signature | + + + + + + | Glucose | 108 | 70 - 109 mg/dL | [facility] | | | | | | [facility] | | | | | | [facility] | | | | | | [facility] - | | | | | | LABORATORY | | + + + + + + | Calcium | 9.4 | 8.3 - 10.5 | [facility] | | | | | mg/dL | [facility] | | | | | | [facility] | | | | | | CENTER - | | | | | | LABORATORY | | + + + + + + | Alkaline | 68 | 40 - 110 IU/L | [facility] | | | Phosphatase | | | [facility] | | | | | | [facility] | | | | | | CENTER - | | | | | | LABORATORY | | + + + + + + | AST | 27 | 10 - 42 IU/L | [facility] | | | | | | [facility] | | | | | | [facility] | | | | | | C[facility] - | | | | | | LABORATORY | | + + + + + + | ALT | 18 | 6 - 45 IU/L | [facility] | | | | | | [facility] | | | | | | [facility] | | | | | | CENTER - | | | | | | LABORATORY | | + + + + + + | Bilirubin | 0.5 | 0.2 - 1.0 mg/dL | [facility] | | | Total | | | [facility] | | | | | | MEDICAL | | | | | | CENTER - | | | | | | LABORATORY | | + + + + + + | Total | 8.4 (H) | 6.0 - 7.8 gm/dL | [facility] | | | Protein | | | [facility] | | | | | | [facility]ICAL | | | | | | CENTER - | | | | | | LABORATORY | | + + + + + + | Albumin | 4.0 | 3.2 - 5.0 gm/dL | [facility] | | | | | | [facility] | | | | | | [facility] | | | | | | CENTER - | | | | | | LABORATORY | | + + + + + + | BUN | 12 | 7 - 18 mg/dL | [facility] [...] + + + | Estimated | >60Comment: For | >60 mL/min/A | [facility] | | | GFR | -Americans, | | [facility] | | | | please multiply the | | MEDICAL | | | | result by 1.210 | | CENTER - | | | | This is an estimated | | LABORATORY | | | | GFR and is based on a | | | | | | standard adult | | | | | | body mass (A=1.73m2) and | | | | | | serum creatinine | | | | + + + + + + | BUN/Creatin | 16.2 | 12 - 20 | [facility] | | | ine Ratio | | | [facility] | | | | | | MEDICAL | | | | | | CENTER - | | | | | | LABORATORY | | + + + + + + | Na | 137 | 136 - 149 mEq/L | [facility] | | | | | | [facility] | | | | | | [facility] | | | | | | [facility] - | | | | | | LABORATORY | | + + + + + + | K | 4.2 | 3.5 - 5.1 mEq/l | [facility] | | | | | | [facility] | | | | | | [facility] | | | | | | [facility] - | | | | | | LABORATORY | | + + + + + + | Cl | 102 | 98 - 109 mEq/l | [facility] | | | | | | [facility] | | | | | | [facility]ICAL | | | | | | CENTER - | | | | | | LABORATORY | | + + + + + + | CO2 | 28 | 24 - 31 mEq/L | [facility] | | | | | | [facility] | | | | | | [facility] | | | | | | CENTER - | | | | | | LABORATORY | | + + + + + + | Anion Gap | 11.2 | 6.0 - 17.0 | [facility] | | | | | [...] [address] | [place] | [phone] | | [facility] | | [address] | | | - LABORATORY | | | | + + + + + | [facility] | [address] | [place], [place] | | | [facility] | | [address] | | | - LABORATORY | | | | + + + + + Lipase (05/08/2011 10:32 AM PST) + +-------+ + + + | Component | Value | Ref Range | Performed | Pathologist | | | | | At | Signature | + +-------+ + + + | Lipase | 32 | 0 - 60 U/L | [facility] | | | | | | [facility] [...] + | [facility] | [address] | [place], [place] | [phone] | | [facility] | | [address] | | | - LABORATORY | | | | + + + + + | [facility] | [address] | [place], [place] | | | [facility] | | [address] | | | - LABORATORY | | | | + + + + + CBC with Differential (05/08/2011 10:32 AM PST) + + + + + + [...] + + + + | RBC | 3.98 | 3.70 - 5.20 | [facility] | | | | | M/uL | [facility] | | | | | | MEDICAL | | | | | | CENTER - | | | | | | LABORATORY | | + + + + + + | Hemoglobin | 13.6 | 11.5 - 16.0 | [facility] | | | | | gm/dL | [facility] | | | | | | MEDICAL | | | | | | CENTER - | | | | | | LABORATORY | | + + + + + + | Hematocrit | 40.9 | 34.0 - 47.0 % | [facility] | | | | | | [facility] | | | | | | MEDICAL | | | | | | CENTER - | | | | | | LABORATORY | | + + + + + + | MCV | 102.8 (H) | 83.0 - 101.0 fL | [facility] | | | | | | [facility] | | | | | | MEDICAL | | | | | | CENTER - | | | | | | LABORATORY | | + + + + + + | MCH | 34.3 | 28.0 - 35.0 pg | [facility] | | | | | | [facility] | | | | | | MEDICAL | | | | | | CENTER - | | | | | | LABORATORY | | + + + + + + | MCHC | 33.3 | 32.0 - 36.0 | [facility] | [...] + + + + | Platelet | 388 | 140 - 440 K/uL | [facility] | | | Count | | | [facility] | | | | | | MEDICAL | | | | | | CENTER - | | | | | | LABORATORY | | + + + + + + | % | 70.4 | 45 - 75 % | [facility] | | | Neutrophils | | | [facility] | | | | | | MEDICAL | | | | | | CENTER - | | | | | | LABORATORY | | + + + + + + | % | 20.2 | 20 - 45 % | [facility] | | | Lymphocytes | | | [facility] | | | | | | MEDICAL | | | | | | CENTER - | | | | | | LABORATORY | | + + + + + + | % Monocytes | 5.5 | 4 - 12 % | [facility] | | | | | | [facility] | | | | | | MEDICAL | | | | | | CENTER - | | | | | | LABORATORY | | + + + + + + | % | 3.0 | 0 - 5 % | [facility] | | | Eosinophils | | | [facility] | | | | | | MEDICAL | | | | | | CENTER - | | | | | | LABORATORY | | + + + + + + | % Basophils | 0.9 | 0 - 1 % | [facility] | | | | | | [facility] | | | | | | MEDICAL | | | | | | CENTER - | | | | | | LABORATORY | | + + + + + + | Absolute | 7.2 (H) | 1.5 - 6.6 K/uL | [facility] | | | Neutrophils | | | [facility] | | | | | | MEDICAL | | | | | | CENTER - | | | | | | LABORATORY | | + + + + + + | Absolute | 2.1 | 0.6 - 3.2 K/uL | [facility] | | | Lymphocytes | | | [facility] | | | | | | MEDICAL | | | | | | CENTER - | | | | | | LABORATORY | | + + + + + + | Absolute | 0.6 | 0.0 - 1.0 K/uL | [facility] | | | Monocytes | | | [facility] | | | | | | MEDICAL | | | | | | CENTER - | | | | | | LABORATORY | | + + + + + + | Absolute | 0.3 | 0.0 - 0.4 K/uL | [facility] | | | Eosinophils | | | [facility] | | | | | | MEDICAL | | | | | | CENTER - | | | | | | LABORATORY | | + + + + + + | Absolute | 0.1 | 0.0 - 0.1 K/uL | [facility] | | | Basophils | | | [facility] | | [...] | + + + + + | [facility] | [address] | [place], [place] | [phone] | | [facility] | | [address] | | | - LABORATORY | | | | + + + + + | [facility] | [address] | [place], [place] | | | [facility] | | [address] | | | - LABORATORY | | | | + + + + + documented in this encounter Visit Diagnoses Not on filedocumented in this encounter"
--- OUTSIDE RECORDS SUMMARY | ~2019-04-12 | XMS | Encounter Summary ---
Demographics + + + | Address | [address] | | | [place] [address] | + + + | Home Phone | | + + + | Preferred Language | Unknown | + + + | Marital Status | | + + + | Quaker Affiliation | Unknown | + + + | Race | Unknown | + + + | Ethnic Group | Unknown | + + + Author + + + | Author | [facility] | | | and [place] | + + + | Organization | [facility] | | | and [...] | | | | | [place] [address] | | + + + + + | Hunter Jackson | ECON | [place] | | + + + + + | Wes Jackson | ECON | [place], [place] | | + + + + + | Oziel Jackson | ECON | [place], [place] | | + + + + + Care Team Providers + +------+ + | Care Hydraulic Governor Assembler Name | Role | Phone | + +------+ + | Rodolfo Cruz MD | PCP | | + +------+ + Reason for Visit +--------+ + | Reason | Comments | +--------+ + | Other | issue with blood pressure | +--------+ + Encounter Details +--------+ + + + + | Date | Type | Department | Care Team | Description | +--------+ + + + + | 05/31/ | Telephone | [facility] | Yesi, | Other (issue with | | 2015 | | CARDIOLOGY [address] | JOSE ALBERTO Linder [address] | blood pressure) | | | | [place], | [place], | | | | | [place] [address] | [place] [address] | | | | | [phone] | [phone] | | | | | | | [...] STREETER | | | | | | [address] | | | | | | | | +--------+---------+ + + + | 11/21/ | Office | Cardiology | Yesi, | | | 2019 | Visit | | JOSE ALBERTO Linder [address] | | | | | | [place] | | | | | | [place] [address] | | | | | | [phone] | | | | | | | | +--------+---------+ + + + documented as of this encounter Visit Diagnoses Not on filedocumented in this encounter"
--- OUTSIDE RECORDS SUMMARY | ~2019-04-12 | XMS | Encounter Summary ---
Demographics + + + | Address | [address] | | | [place] [address] | + + + | Home Phone | | + + + | Preferred Language | Unknown | + + + | Marital Status | | + + + | Mosque Affiliation | Unknown | + + + | Race | Unknown | + + + | Ethnic Group | Unknown | + + + Author + + + | Author | [facility] | | | and [place] | + + + | Organization | [facility] | [...] | | | | | [place] [address] | | + + + + + | Hunter Jackson | ECON | [place] | | + + + + + | Wes Jackson | ECON | [place], [place] | | + + + + + | Oziel Jackson | ECON | [place], [place] | | + + + + + Care Team Providers + +------+ + | Care Credit Rating Checker Name | Role | Phone | + +------+ + | Rodolfo Cruz MD | PCP | | + +------+ + Reason for Visit + + + | Reason | Comments | + + + | Diagnostic Order | | + + + | Lab Order | | + + + Encounter Details +--------+ + + + + | Date | Type | Department | Care Team | Description | +--------+ + + + + | 03/22/ | Telephone | [facility] | Rodolfo Cruz, | Diagnostic Order; | | 2014 | | MEDICINE [address] | MD [address] | Lab Order | | | | [facility] | [place] | | | | | [place] [address] | [address] | | | | | [phone] | | | +--------+ + + + [...] STREETER | | | | | | [id number] | | | | | | | | +--------+---------+ + + + | 11/21/ | Office | Cardiology | Yesi, | | | 2019 | Visit | | JOSE ALBERTO Linder [address] | | | | | | [place] | | | | | | [place] [address] | | | | | | [phone] | | | | | | | | +--------+---------+ + + + documented as of this encounter Results Comprehensive Metabolic Panel (03/23/2015 11:03 AM PST) + + + + + + | Component | Value | Ref Range | Performed | Pathologist | | | | | At | Signature | + + + + + + | Na | 137 | 136 - 149 | [facility] | | | | | mmol/L | [facility] | | | | [...] + + | Cl | 99 | 98 - 109 mmol/L | [facility] | | | | | | [facility] | | | | | | MEDICAL | | | | | | CENTER - | | | | | | LABORATORY | | + + + + + + | CO2 | 29 | 24 - 31 mmol/L | [facility] [...] + + + + | Glucose | 93 | 70 - 109 mg/dL | [facility] | | | | | | [facility] | | | | | | MEDICAL | | | | | | CENTER - | | | | | | LABORATORY | | + + + + + + | BUN | 9 | 7 - 18 mg/dL | [facility] | | | | | | [facility] | | | | | | MEDICAL | | | | | | CENTER - | | | | | | LABORATORY | | + + + + + + | Creatinine | 0.63 | 0.60 - 1.30 | [facility] | [...] mL/min/1.73m2 | [facility] | | | J[place]ANESE | RATE,ESTIMATED | | MEDICAL | | | | mL/min/1.36t8Huvn than | | CENTER - | | [...] + + + + | Calcium | 9.6 | 8.3 - 10.5 | [facility] | | | | | mg/dL | [facility] | | | | | | MEDICAL | | | | | | CENTER - | | | | | | LABORATORY | | + + + + + + | Albumin | 4.0 | 3.2 - 5.0 g/dL | [facility] | | | | | | [facility] | | | | | | MEDICAL | | | | | | CENTER - | | | | | | LABORATORY | | + + + + + + | Bilirubin | 0.5 | 0.1 - 1.5 mg/dL | [facility] | | | Total | | | [facility] | | | | | | MEDICAL | | | | | | CENTER - | | | | | | LABORATORY | | + + + + + + | Total | 7.7 | 6.0 - 7.8 g/dL | [facility] | | | Protein | | | [facility] | | | | | | MEDICAL | | | | | | CENTER - | | | | | | LABORATORY | | + + + + + + | AST | 20 | 10 - 42 U/L | [facility] | | | | | | [facility] | | | | | | MEDICAL | | | | | | CENTER - | | | | | | LABORATORY | | + + + + + + | ALT | 13 | 6 - 45 U/L | [facility] | | | | | | [facility] | | | | | | MEDICAL | | | | | | CENTER - | | | | | | LABORATORY | | + + + + + + | Alkaline | 63 | 40 - 110 U/L | [facility] | | | Phosphatase | | | [facility] | | | | | | MEDICAL | | | | | | CENTER - | | | | | | LABORATORY | | + + + + + + | Globulin | 3.7 | g/dL | [facility] | | | | | | [facility] | | | | | | MEDICAL | | | | | | CENTER - | | | | | | LABORATORY | | + + + + + + | Albumin/Sarah | 1.1 | | [facility] | | | bulin Ratio | | | [facility] | | | | | | MEDICAL | | | | | | CENTER - | | | | | | LABORATORY | | + + + + + + | BUN/Creatin | 14.3 | | [facility] | | | ine [...] [address] | [place] | [phone] | | [facility] | | [address] | | | - LABORATORY | | | | + + + + + EGFR (03/23/2015 11:03 AM PST) + + + + + + | Component | Value | Ref Range | Performed | Pathologist | | | | | At | Signature | + + + + + + | GFR | >60Comment: GFR <60: | >60 | [facility] | | | ESTIMATE | Chronic kidney disease, | ml/min/1.73m2 | [facility] | | | | if found over a 3 month | | | | | | period.GFR <15: Kidney | | | | | | failure.For | | | | | | Americans, multiply the | | | | | | calculated GFR by | | | | | | 1.210Testing Performed: | | | | | | [facility], [address], | | | | | | [place] [address] | | | | + + + + + + + + | Specimen | + + | Blood specimen | | (specimen) | + + + + + + + | Performing | Address | City/State/Zipcode | Phone Number | | Organization | | | | + + + + + | [facility] | [address] | [place] [address] | [phone] | + + + + + documented in this encounter Visit Diagnoses + + | Diagnosis | + + | Pre-procedure lab exam - Primary Pre-procedural laboratory examination | + + documented in this encounter"
--- OUTSIDE RECORDS SUMMARY | ~2019-04-12 | XMS | Encounter Summary ---
Demographics + + + | Address | [address] | | | [place] [address] | + + + | Home Phone | | + + + | Preferred Language | Unknown | + + + | Marital Status | | + + + | Yazidism Affiliation | Unknown | + + + | Race | Unknown | + + + | Ethnic Group | Unknown | + + + Author + + + | Author | [facility] | | | and [place] | + + + | Organization | [facility] | | | and [...] | | | | | [place] [address] | | + + + + + | Hunter Jackson | ECON | [place] | | + + + + + | Wes Jackson | ECON | [place], [place] | | + + + + + | Oziel Jackson | ECON | [place], [place] | | + + + + + Care Team Providers + +------+ + | Care Middle School Professional Name | Role | Phone | + +------+ + | Rodolfo Cruz MD | PCP | | + +------+ + Reason for Visit + + + | Reason | Comments | + + + | Back Pain | | + + + Encounter Details +--------+ + + + + | Date | Type | Department | Care Team | Description | +--------+ + + + + | 04/14/ | Telephone | [facility] | Rodolfo Cruz, | Back Pain | | 2013 | | MEDICINE [address] [place] [address] | MD [address] | | | | | [place] | [place] | | | | | [place] [address] | [address] | | | | | [phone] | | | +--------+ + + + [...] | | | | | | [place] [address] | | | | | | [phone] | | | | | | | | +--------+---------+ + + + documented as of this encounter Visit Diagnoses Not on filedocumented in this encounter"
--- OUTSIDE RECORDS SUMMARY | ~2019-04-12 | XMS | Encounter Summary ---
Demographics + + + | Address | [address] | | | [place] [address] | + + + | Home Phone | | + + + | Preferred Language | Unknown | + + + | Marital Status | | + + + | Hindu Affiliation | Unknown | + + + | Race | Unknown | + + + | Ethnic Group | Unknown | + + + Author + + + | Author | [facility] | | | and [place] | + + + | Organization | [facility] | | | and [place] | + + + | Address | Unknown | + + + | Phone | Unavailable | + + + Support + + + + + | Name | Relationship | Address | Phone | + + + + + | Osmin Jackson | ECON | [address] | | | | | [place] [address] | | + + + + + | Hunter Jackson | ECON | [place] | | + + + + + | Wes Jackson | ECON | [place], [place] | | + + + + + | Oziel Jackson | ECON | [place], [place] | | + + + + + Care Team Providers + +------+ + | Care Rv Technician Name | Role | Phone | + [...] Description | +--------+--------+ + + + | 11/16/ | Refill | [facility] | Irina Simms, | Medication Refill | | 2019 | | CARDIOLOGY [address] | MD [address] [place] | | | | | [place], | [place], | | | | | [place] [address] | [place] [address] | | | | | [phone] | [phone] | | | | | | | [...] STREETER | | | | | | [address] | | | | | | | | +--------+---------+ + + + | 11/21/ | Office | Cardiology | Yesi, | | | 2019 | Visit | | JOSE ALBERTO Linder [address] | | | | | | [address] | | | | | | [place] [address] | | | | | | [phone] | | | | | | | | +--------+---------+ + + + documented as of this encounter Visit Diagnoses Not on filedocumented in this encounter"
--- OUTSIDE RECORDS SUMMARY | ~2019-04-12 | XMS | Encounter Summary ---
Demographics + + + | Address | [address] | | | [place] [address] | + + + | Home Phone [...] Author | [facility] | | | and [place] | + + + | Organization | [facility] | | | and [place] | + + + | Address | Unknown | + + + | Phone | Unavailable | + + + Support + + + + + | Name | Relationship | Address | Phone | + + + + + | Osmin Jackson | ECON | [address] | | | | | [place] [address] | | + + + + + | Hunter Jackson | ECON | [place] | | + + + + + | Wes Jackson | ECON | [place], [place] | | + + + + + | Oziel Jackson | ECON | [place], [place] | | + + + + + Care Team Providers + +------+ + | Care Gantry Rigger Name | Role | Phone | + +------+ + | Gunderson, Kellie PA | PCP | | + +------+ + Reason for Visit + + + | Reason | Comments | + + + | Chest Pressure | | + + + | Follow-up | | + + + Encounter Details +--------+---------+ + + + | Date | Type | Department | Care Team | Description | +--------+---------+ + + + | 11/22/ | Office | [facility] | Irina Simms, | Coronary artery | | 2017 | Visit | CARDIOLOGY [address] | disease involving | | | | [address] [place], | [place], | mi[place]kmaq coronary | | | | [place] [address] | [place] [address] | artery of mi'kmaq | | | | [phone] | [phone] | heart with unstable | | | | | | angina pectoris | | | | | | (HCC) | +--------+---------+ + + + Social History [...] + + + | Blood Pressure | 128/60 | 11/22/2016 11:19 AM | | | | | PDT | | + + + + + | Pulse | 64 | 11/22/2016 11:19 AM | | | | | PDT | | + + + + + | Temperature | - | - | | + + + + + | Respiratory Rate | 17 | 11/22/2016 11:19 AM | | | | | PDT | | + + + + + | Oxygen Saturation | - | - | | + + + + + | Inhaled Oxygen | - | - | | | Concentration | | | | + + + + + | Weight | 81.6 kg (180 lb) | 11/22/2016 11:19 AM | | | | | PDT | | + + + + + | Height | 162.6 cm (5' 4") | 11/22/2016 11:19 AM | | | | | PDT | | + + + + + | Body Mass Index | 30.9 | 11/22/2016 11:19 AM | | | | | PDT | | + + + + + documented in this encounter Progress Notes Irina Simms MD - 11/22/2016 11:00 AM PDTFormatting of this note might be different f rom the original. PATIENT NAME: Soumya Jackson : 1935: AGE: 81 y.o. PRIMARY CARE: FLORA Morgan OUTPATIENT FOLLOW UP VISIT Date of Service: 11/22/2016 HISTORY OF PRESENT ILLNESS: Soumya Jackson is a 81 y.o. female with a history of coronary artery disease post CABG 3 on 11/01/16, moderate aortic valve insufficiency, essential hypertension, osteoarthritis, h ypothyroidism, dyslipidemia, elevated CRP. She is being seen today for follow up coronary ar ilya disease. She was last seen 09/26/2016 at which time she was recommended left heart catheterization fo r the work up for persistent chest pressure. Since that time, patient was admitted to [facility] on 11/01/[address] Dr[address] Loo. She was started on aspirin 81 mg, atorvastatin 40 mg, metoprolol tartrate 25 mg, furosemide 40 mg and potassium chlori de 20 mEq. Today, patient is feeling better. Patient is physically inactive but has started walking in side the house. There is no chest pain or chest discomfort both at rest and on exertion. Pat ient denies breathlessness. There is no palpitations, dizziness or lightheadedness. There is residual leg swelling which she is using compression stockings. Patient can sleep on one p illow at night without difficulty breathing. MEDICAL, SURGICAL, AND PERSONAL HISTORY Past Medical, [...] cervical Cervical radiculopathy Coronary artery disease involving mi'kmaq coronary artery of mi'kmaq heart with unstable angina pectoris Stress hyperglycemia CURRENT MEDICATIONS Current Outpatient Prescriptions Medication Sig Dispense Refill albuterol 90 mcg/puff inhaler 2 puff po q 4 hours prn 1 Inhaler 0 amLODIPine (NORVASC) 10 MG tablet Take 10 mg by mouth Daily. aspirin 81 mg chewable tablet Take 2 tablets by mouth Daily. 30 tablet 2 atorvaSTATin (LIPITOR) 40 mg tablet Take 1 tablet by mouth nightly. 30 tablet 2 BIOTIN PO Take 500 mg by mouth Daily. Calcium Citrate-Vitamin D (CITRACAL MAXIMUM PO) TABS Take one by mouth three times rafia y. cephalexin (KEFLEX) 500 mg capsule Take 1 capsule by mouth 4 times daily for 10 days. 4 0 capsule 0 Cholecalciferol (D-5000 PO) Take 5,000 Units by mouth Daily. diclofenac (VOLTAREN) 1% GEL Apply 1 g topically Daily as needed. 100 g 0 diphenhydrAMINE (BENADRYL) 25 mg tablet Take 25 mg by mouth nightly as needed for Itchi ng. eszopiclone (LUNESTA) 2 MG TABS Take 1 tablet by mouth nightly. 90 tablet 0 furosemide (LASIX) 40 mg tablet Take 40 mg by mouth Daily. furosemide (LASIX) 40 mg tablet Take 1 tablet by mouth Daily for 3 days. 3 tablet 0 GARLIC Take 1,000 mg by mouth Daily. [...] mcg by mouth Twice daily wi lunch/dinner. magnesium-calcium carbonate (SLOW-MAG) 71.5-119 MG TBEC Take 71.5-119 mg by mouth Daily . Melatonin (MELATONIN MAXIMUM STRENGTH) 5 MG TABS Take 5 mg by mouth Daily as needed. metoprolol tartrate (LOPRESSOR) 25 mg tablet Take 1 tablet by mouth 2 times daily. 60 t ablet 2 Multiple Vitamins-Minerals (OCUVITE ADULT 50+) CAPS Take by mouth Daily. nitroglycerin (NITROSTAT) 0.[address] 1 tablet under the tongue every 5 helen dania as needed for Chest pain. 20 tablet 1 omeprazole (PRILOSEC) 20 mg capsule Take 20 [...] Dye Itching ROS Review of Systems Constitutional: Negative for malaise/fatigue. Respiratory: Negative for shortness of breath. Cardiovascular: Negative for chest pain, palpitations and leg swelling. Neurological: Negative for dizziness and weakness. Lightheaded = No OBJECTIVE: PHYSICAL EXAM BP 128/60 | Pulse 64 | Resp 17 | Ht 1.626 m (5' 4") | Wt 81.6 kg (180 lb) | BMI 30.90 kg/m Physical Exam Constitutional: She appears well-developed and well-nourished. No distress. Female individual without acute distress, accompanied with her family. Neck: Normal carotid pulses, no hepatojugular reflux [...] side, and 2+ on the left side. Well healing sternal incision Pulmonary/Chest: Effort normal and breath sounds normal. No accessory muscle usage. No resp iratory distress. She has no wheezes. She has no rhonchi. She has no rales. Abdominal: Normal appearance, normal aorta and bowel sounds are normal. She exhibits no abd ominal bruit. There is no hepatosplenomegaly. There is no tenderness. Musculoskeletal: She exhibits edema (bilateral 1 to 2+ leg pitting edema). Neurological: She is alert. Gait normal. Skin: Skin is warm and dry. Psychiatric: She has a normal mood and affect. Her mood appears not anxious. She does not e xhibit a depressed mood. LAB RESULTS reviewed during visit today primarily from [facility]: LIPID Lab Results Component Value Date [...] Value Date WBC 17.2 (H) 11/04/2016 WBCEX 11.7 (A) 09/18/2016 HGB 9.7 (L) 11/04/2016 HGBEX 14.8 09/18/2016 HCT 29.0 (L) 11/04/2016 HCTEX 43.8 09/18/2016 PLT 205 11/04/2016 PLTEX 370 09/18/2016 I reviewed records from Christina Loo MD for hospitalization,including H&P, Discharge Summary and lab reports on 11/01/2016-11/06/2016. Refer to machine operator hay stacker. Above data and testing is reviewed this visit; testing below is historical data unless othe rwise specified. ASSESSMENT: 1. Coronary artery disease A. Seen at [facility] they had EKG and sent her home stating it was GERD B. Seen in the emergency room at [facility] for chest pain. She was schedule for stre ss test and discharged home. C. Stress Test 05/16/16, is maximal asymptomatic stress test, [facility] very poor function status, achieving maximal heart [...] 11/01/2016 shows normal LV function EF 65, mild concentric hypertroph y (11 mm) normal wall motion, normal RV, normal atria and LA appendage, no shunt by CFD. Jaime cifed ~ 1 cm area in posterior mitral annulus, otherwise valve structure relatively normal, mild central MR, trace central AI, no , trace TR, trace DC, normal aorta other than mild c alcification at ST junction, normal diameter, normal PA, no effusions. H. Coronary artery bypass surgery times 3 11/01/2016 shows VERDUZCO to LAD, saphenous vein gra ft to diagonal, saphenous vein graft to right coronary artery, endoscopic vein harvest, left greater saphenous vein by Dr. Loo. I. Today, patient is feeling better. Patient is physically inactive but has started walki ng inside the house. There is no chest pain or chest discomfort both at rest and on exertion . Patient denies breathlessness. There is no palpitations, dizziness or lightheadedness. The re is residual leg swelling which she is using compression stockings. Patient can sleep on o ne pillow at night without difficulty breathing. There is no signs and symptoms of overt congestive heart failure.She is in a class I of [place] [employer] functional class. There is bilateral 1 to 2+ leg pitting edema on physical examination. 2. Essential hypertension with goal blood pressure less than 130/80: A. Today, blood pressure is well-controlled. 3. Heart murmur due to aortic valve [...] Lipitor after open heart surgery. PLAN: 1. Refill metoprolol and Lipitor. 2. I will continue with current medical regimen. 3. I recommend phase 2 cardiac rehab program at [facility] but she cannot do it because she lives out of town. 4. I recommend a therapeutic lifestyle change including walking 30 minutes a day, choosing healthy choices of diet , including DASH diet and weight reduction. 5. Follow-up on February 03, 2017 with JOSE ALBERTO Pham. I Nati Ellis am acting as a scribe on behalf of, and in the presence of Irina pedro MD. I have reviewed and edited this note. Zeferino Arreola Asst 11/22/2016 I, Irina Simms MD, personally performed the services described in this documentation, as scribed in my presence and it is both accurate and complete. Nati Ellis Med Ass t 11/22/2016 11:38 Electronically signed by: Irina Simms MD [facility] 11/22/2016 Portions of this chart may have been created with Dragon voice recognition software. Occasi onal wrong-word or sound-alike substitutions may have occurred due to the inherent doe itations of voice recognition software. Please read the chart carefully and recognize, using context, where these substitutions have occurred documented in this encounter Plan of Treatment [...] | | | | | | [place] [address] | | | | | | [phone] | | | | | | | | +--------+---------+ + + + documented as of this encounter Visit Diagnoses + + | Diagnosis | + + | Coronary artery disease involving mi'kmaq coronary artery of mi'kmaq heart with unstable | | angina pectoris (HCC) | + + documented in this encounter
--- OUTSIDE RECORDS SUMMARY | ~2019-04-12 | XMS | Encounter Summary ---
Demographics + + + | Address | [address] | | | [place] [address] | + + + | Home Phone [...] Author | [facility] | | | and [place] | + + + | Organization | [facility] | | | and [place] | + + + | Address | Unknown | + + + | Phone | Unavailable | + + + Support + + + + + | Name | Relationship | Address | Phone | + + + + + | Osmin Jackson | ECON | [address] | | | | | [place] [address] | | + + + + + | Hunter Jackson | ECON | [place] | | + + + + + | Wes Jackson | ECON | [place], [place] | | + + + + + | Oziel Jackson | ECON | [place], [place] | | + + + + + Care Team Providers + +------+ + | Care Sandblaster Paint Sprayer Name | Role | Phone | + +------+ + | Gunderson, Kellie PA | PCP | | + +------+ + Reason for Visit + + + | Reason | Comments | + + + | Appointment | post injection | + + + Encounter Details +--------+ + + + + | Date | Type | Department | Care Team | Description | +--------+ + + + + | 06/02/ | Telephone | [facility] | Harsha Selby | Appointment (post | | 2017 | | PHYSIATRY [address] | [address] | injection) | | | | [place], | [address] | | | | | [place] [address] | [id number] | | | | | [phone] | | | +--------+ + + + [...] [address]REET[place] | | | | | | [id number] | | | | | | | | +--------+---------+ + + + | 11/21/ | Office | Cardiology | Yesi, | | | 2019 | Visit | | JOSE ALBERTO Linder [address] | | | | | | [place] | | | | | | [place] [address] | | | | | | [phone] | | | | | | | | +--------+---------+ + + + documented as of this encounter Visit Diagnoses Not on filedocumented in this encounter"
--- OUTSIDE RECORDS SUMMARY | ~2019-04-12 | XMS | Encounter Summary ---
Demographics + + + | Address | [address] | | | [place] [address] | + + + | Home Phone | | + + + | Preferred Language | Unknown | + + + | Marital Status | | + + + | Restorationism Affiliation | Unknown | + + + | Race | Unknown | + + + | Ethnic Group | Unknown | + + + Author + + + | Author | [facility] | | | and [place] | + + + | Organization | [facility] | [...] | | | | | [place] [address] | | + + + + + | Hunter Jackson | ECON | [place] | | + + + + + | Wes Jackson | ECON | [place], [place] | | + + + + + | Oziel Jackson | ECON | [place], [place] | | + + + + + Care Team Providers + +------+ + | Care Steel Plate Caulker Name | Role | Phone | + +------+ + | Rodolfo Cruz MD | PCP | | + +------+ + Reason for Visit + + + | Reason | Comments | + + + | Follow-up | Right shoulder pain | + + + Encounter Details +--------+---------+ + + + | Date | Type | Department | Care Team | Description | +--------+---------+ + + + | 02/09/ | Office | [facility] | Ulysses Jensen, | Rotator cuff | | 2013 | Visit | ORTHOPEDIC SURGERY | MD Danny PARHAM | syndrome of right | | | | [address] | [place] | shoulder (Primary | | | | [place] | [id number] | Dx); CMC arthritis | | | | [address] | | | | | | [phone] | | | +--------+---------+ + + + [...] + + + + | Temperature | 36.9 C (98.4 F) | 02/09/2014 10:48 AM | | | | | PDT [...] + + + + | Weight | - | - | | + + + + + | Height | - | - | | + + + + + | Body Mass Index | - | - | | + + + + + documented in this encounter Progress Notes Ulysses Jensen MD - 02/09/2014 11:41 AM PDTPatient returns and wishes to have right shoul franky SAS injection for RC syndrome and right thumb CMC joint injection for bone on bone arthr osis On exam today she has negative drop arm sign Resisted abduction in scapular plane is uncomfortable for her She has had good results with injections in the past I discussed with her the possibility of developing a full thickness cuff tear that would re quire surgery to fix She will let us know if she is having increasing problems Under sterile conditions I injected her right shoulder SAS with kenalog 40mg and 3cc marcai ne I then injected her right thumb CMC joint with celestone 1/2cc and marcaine 1/2cc under sanaz rile conditions She tolerated both injections well today and will call if having further problemsElectronic ally signed by Ulysses Jensen MD at 02/09/2014 11:44 AM PDTdocumented in this encounter Plan of Treatment +--------+---------+ + + + | Date | Type | Specialty | Care Team | Description | +--------+---------+ + + + | 06/02/ | Office | Orthopedic Surgery | Ulysses Jensen, | | 2019 | Visit | | MD Danny [address] | | | | | | [place] | | | | | | [id number] | | | | | | | | +--------+---------+ + + + | 11/21/ | Office | Cardiology | [place], | | | 2020 | Visit | | JOSE ALBERTO [address] | | | | | | [place], | | | | | | [place] [address] | | | | | | [phone] | | | | | | | | +--------+---------+ + + + documented as of this encounter Visit Diagnoses + + | Diagnosis | + + | Rotator cuff syndrome of right shoulder - Primary Disorders of bursae and tendons in | | shoulder region, unspecified | + + | CMC arthritis Unspecified arthropathy, hand | + + documented in this encounter"
--- OUTSIDE RECORDS SUMMARY | ~2019-04-12 | XMS | Encounter Summary ---
Demographics + + + | Address | [address] | | | [place] [address] | + + + | Home Phone | | + + + | Preferred Language | Unknown | + + + | Marital Status | | + + + | Restoration Affiliation | Unknown | + + + | Race | Unknown | + + + | Ethnic Group | Unknown | + + + Author + + + | Author | [facility] | | | and [place] | + + + | Organization | [facility] | | | and [place] | + + + | Address | Unknown | + + + | Phone | Unavailable | + + + Support + + + + + | Name | Relationship | Address | Phone | + + + + + | Osmin Jackson | ECON | [address] | | | | | [place] [address] | | + + + + + | Hunter Jackson | ECON | [place] | | + + + + + | Wes Jackson | ECON | [place], [place] | | + + + + + | Oziel Jackson | ECON | [place], [place] | | + + + + + Care Team Providers + +------+ + | Care Electrical Engineering Intern Name | Role | Phone | + +------+ + | Rodolfo Cruz MD | PCP | | + +------+ + Reason for Visit + + + | Reason | Comments | + + + | Follow-up | 3 month | + + + Encounter Details +--------+---------+ + + + | Date | Type | Department | Care Team | Description | +--------+---------+ + + + | 07/08/ | Office | [facility] | Rodolfo Cruz, | Hyperlipidemia | | 2014 | Visit | [facility] | [address] | (Primary Dx); | | | | [address] | [place] | Hypothyroidism; | | | | [place], [place] | [address] | Hypertension; DJD | | | | [address] | | (degenerative joint | | | | [phone] | | disease); Asthma; | | | | | | GERD | +--------+---------+ + + + Social History [...] + + + | Blood Pressure | 138/66 | 07/08/2013 1:33 PM | | | | | PST | | + + + + + | Pulse | 70 | 07/08/2013 1:33 PM | | | | | PST | | + + + + + | Temperature | 36.2 C (97.2 F) | 07/08/2013 1:33 PM | | | | | PST | | + + + + + | Respiratory Rate | 20 | 07/08/2013 1:33 PM | | | | | PST | | + + + + + | Oxygen Saturation | 97% | 07/08/2013 1:33 PM | | | | | PST | | + + + + + | Inhaled Oxygen | - | - | | | Concentration | | | | + + + + + | Weight | 92.5 kg (204 lb) | 07/08/2013 1:33 PM | | | | | PST | | + + + + + | Height | - | - | | + + + + + | Body Mass Index | 32.93 | 05/10/2013 3:27 PM | | | | | PST | | + + + + + documented in this encounter Progress Notes Rodolfo Cruz MD - 07/08/2013 1:45 PM PSTFormatting of this note might be different f rom the original. Subjective: Patient ID: Soumya Jackson is a 77 y.o. female. HPI DJD , hands and hips still aches. Last injection right shoulder helped from Dr Jensen for this. She is taking aspirin and diclofenac. As well as can be expected. HTN blood pressure slightly higher in recent times. No Chest pain, SOB, there is some ank le swelling ETC. Running in the 120-140/60-70 range in , INTOLERANT TO ABE'S AND ARB' S, She is compliant with her toprol and furosemide. atigue is unchanged. She takes her bl ood pressure every day. This is unchanged. TIA 2 year ago, no symtoms since. but tingling and numbness in sensation does persist in u pper and lower left arm and hand, 24 x 7, This seems to be getting worse but she does not wa nt to see a neurologist. hand also feels cold, no other new symtoms, complying with ASA do sing daily. left sided face tingling off and on continues, This again is mostly unchanged . Hyperlipidemia, on Tricor, she has some muscle aches in her arms but she thinks it is from a previous bad massage. No weakness on the medication, compliant, She was on fish oil. Asthma , occasional bronchitis, Some mornings she coughs up a bunch of junk which has been going on forever. occasionally wheezy, was prescribed an ventolin and this has helped, n o SOB or wheezing at this point. GERD, She takes prilosec daily, and an occasional TUMS, she has rare heartburn with the m edication. There are no bloody or black stools, She understand the risks of the medication and she wishes to take the medication. She feels that the benefit outweighs the risk. Gre asy stuff like ted's gives her heartburn. This is unchanged. Mammogram 01/22 normal. 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 No Bloody urine , occasional HB. Some nocturia Musculoskeletal: Neg for myalgias, no back pain, no joint swelling and No ar thralgias. some joint pain Skin: Neg for color change,no rash and No wounds, no Strange moles Neurological: Neg for dizziness, no Weakness,no light-headedness, no numbness and no headaches. Hematological: Neg for adenopathy. Does not bruise/bleed easily. Psychiatric/Behavioral: Neg for suicidal ideas,no confusion and no agitation. no Depression, no anxiety,some sleep problems Objective: Physical Exam Heent, WNL, No carotid bruit Chest CTAB Heart RR&R /s M Abd S,NT,ND,BS+ Ext, no CCor E Neuro Non-focal Lymph, no cervical, axillary, inguinal adenopathy Musculoskeletal, no gross deformity or loss or range of motion Skin, no gross lesions Assessment: 1. Hyperlipidemia fenofibrate (TRICOR) 48 mg tablet 2. Hypothyroidism levothyroxine (SYNTHROID) 125 mcg tablet 3. Hypertension 4. DJD (degenerative joint disease) 5. Asthma 6. GERD Plan: She looks and feels fine. Labs and RTC 3 months. interpath req given to the patient. documented in this encounter Plan of Treatment +--------+---------+ + + + | Date | Type | Specialty | Care Team | Description | +--------+---------+ + + + | 06/02/ | Office | Orthopedic Surgery | Ulysses Jensen, | | | 2019 | Visit | | MD Danny [address] | | | | | | [place] [address] | | | | | | [id number] | | | | | | | | +--------+---------+ + + + | 11/21/ | Office | Cardiology | Yesi | | | 2019 | Visit | | JOSE ALBERTO [address]inder [address] | | | | | | [place] | | | | | | [place] [address] | | | | | | [phone] | | | | | | | | +--------+---------+ + + + documented as of this encounter Visit Diagnoses + + | Diagnosis | + + | Hyperlipidemia - Primary Other and unspecified hyperlipidemia | + + | Hypothyroidism Unspecified hypothyroidism | + + | Hypertension Unspecified essential hypertension | + + | DJD (degenerative joint disease) Osteoarthrosis, unspecified whether generalized or | | localized, unspecified site | + + | Asthma Unspecified asthma | + + | GERD Esophageal reflux | + + documented in this encounter"
--- OUTSIDE RECORDS SUMMARY | ~2019-04-12 | XMS | Encounter Summary ---
Demographics + + + | Address | [address] | | | [place] [address] | + + + | Home Phone | | + + + | Preferred Language | Unknown | + + + | Marital Status | | + + + | Yarsani Affiliation | Unknown | + + + | Race | Unknown | + + + | Ethnic Group | Unknown | + + + Author + + + | Author | [facility] | | | and [place] | + + + | Organization | [facility] | | | and [...] | | | | | [place] [address] | | + + + + + | Hunter Jackson | ECON | [place] | | + + + + + | Wes Jackson | ECON | [place], [place] | | + + + + + | Oziel Jackson | ECON | [place], [place] | | + + + + + Care Team Providers + +------+ + | Care Electronic Equipment Set Up Operator Name | Role | Phone | + +------+ + | Rodolfo Cruz MD | PCP | | + +------+ + Reason for Visit + + + | Reason | Comments | + + + | Lab Order | | + + + Encounter Details +--------+ + + + + | Date | Type | Department | Care Team | Description | +--------+ + + + + | 08/16/ | Telephone | [facility] | Rodolfo Cruz, | Lab Order | | 2015 | | MEDICINE [facility] | MD [address] | | | | | [place] | [place] | | | | | [place] [address] | [address] | | | | | [phone] | | | +--------+ + + + [...] | | | | | | [place] [address] | | | | | | [phone] | | | | | | | | +--------+---------+ + + + documented as of this encounter Visit Diagnoses Not on filedocumented in this encounter"
--- OUTSIDE RECORDS SUMMARY | ~2019-04-12 | XMS | Encounter Summary ---
Demographics + + + | Address | [address] | | | [place] [address] | + + + | Home Phone [...] Author | [facility] | | | and [place] | + + + | Organization | [facility] | | | and [...] | | | | | [place] [address] | | + + + + + | Hunter Jackson | ECON | [place] | | + + + + + | Wes Jackson | ECON | [place], [place] | | + + + + + | Oziel Jackson | ECON | [place], [place] | | + + + + + Care Team Providers + +------+ + | Care Lumber Press Operator Name | Role | Phone | + +------+ + | Rodolfo Cruz MD | PCP | | + +------+ + Reason for Visit + + + | Reason | Comments | + + + | Back Pain | Low back pain | + + + Encounter Details +--------+---------+ + + + | Date | Type | Department | Care Team | Description | +--------+---------+ + + + | 01/26/ | Office | [facility] | Harsha Selby | Chronic low back | | 2015 | Visit | PHYSIATRY [address] | [address] | pain (Primary Dx); | | | | [place], | [address] | Facet arthritis of | | | | [place] [address] | [address] | lumbar region; DDD | | | | [phone] | | (degenerative disc | | | | | | disease), lumbar | +--------+---------+ + + + Social History [...] + + + + | Weight | 84.8 kg (187 lb) | 01/26/2015 12:06 PM | | | | | PDT | | + + + + + | Height | 162.6 cm (5' 4") | 01/26/2015 12:06 PM | | | | | PDT | | + + + + + | Body Mass Index | 32.1 | 01/26/2015 12:06 PM | | | | | PDT | | + + + + + documented in this encounter Patient Instructions Patient Instructions Harsha Selby MD - 01/26/2015 12:25 PM PDT Follow-up at the hospital thirty minutes before your scheduled procedure to allow for time to check in. You may eat and drink as usual on the day of the procedure. If you are scheduled for an epidural injection do not take any blood thinning medications f or at least 5-7 days prior to your procedure unless you have been instructed by another phys ician not to discontinue blood thinning medications. If you are having a procedure other than an epidural injection (i.e. facet injection, media l branch block, SI joint injection or other joint injection) it is not absolutely necessary to discontinue blood thinning medications but doing so will decrease the risk of bruising or bleeding. If you have had a prior stroke, DVT or PE or if you are taking blood thinning medication be cause you have atrial fibrillation, a prosthetic cardiac valve replacement or heart stenting do not stop taking your blood thinning medications unless you have permission from your car diologist or primary care provider. All other medications should be taken as usual on the day of the procedure. Common blood thinning medications include: Aspirin (a baby aspirin is o.k.) Ibuprofen (Advil or Motrin) Naproxen (Aleve) Nabumetone (Relafen) Clopidogrel (Plavix) Dipyridamole/ASA (Aggrenox) Warfarin (Coumadin) Dabigatran (Pradaxa) Rivaroxaban (Xarelto) There are many others. If you have questions about your medications and whether or not you should stop any medications please contact our office. If you are having an epidural injection or if you take any medication for relaxation/sedati on on the day of the procedure you must provide a hog driver to take you home. For all procedur es it is recommended that someone else drive you home. documented in this encounter Progress Notes Harsha Selby MD - 01/27/2015 4:16 PM PDT CHIEF COMPLAINT: Chief Complaint Patient presents with Back Pain Low back pain HISTORY OF PRESENT ILLNESS: The patient is a 79 y.o. female being seen today in follow-up for complaints of low back pa in. The patient has been seen for this complaint in the past. She was seen most recently by my PA Velvet Slade. Most recently it was recommended that she participate in physical therapy. This was performed but she reports it did not improve her symptoms. She then gutierrez d medial branch blocks targeting the L5-S1 facets, ordered by Velvet. She received that pro cedure on 12/09/14 and unfortunately the medial branch block failed to give her significant r elief. After that procedure failed to help Velvet did order an MRI of the lumbar spine and t he patient is here to review the imaging today. She rates her usual pain as a 3-5 on a scale of 0-10 and it can be 6-8 with activity. She describes the pain as aching. Her symptoms worsen with prolonged standing, walking, bending, stooping. Her symptoms impr ove with postural control, working on her core muscles, rest and lying down. 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 She does not report weakness. She does not have bowel and bladder dysfunction. She does not have saddle anesthesia. Treatments for these complaints have included physical therapy, chiropractics along with th e use of hydrocodone/apap at night. She does also use Voltaren Gel which she reports helps s ome. Patient's medications, allergies, past medical, surgical, social and family histories were reviewed and updated as appropriate. CURRENT MEDICATIONS: Current Outpatient Prescriptions Medication Sig Dispense Refill albuterol 90 mcg/puff inhaler 2 puff po q 4 hours prn 1 Inhaler 0 atorvaSTATin (LIPITOR) 10 mg tablet Take 1 tablet by mouth nightly. 30 tablet 11 BIOTIN PO Take 500 mg by mouth Daily. Calcium Citrate-Vitamin D (CITRACAL MAXIMUM PO) TABS Take one by mouth three times rafia y. Cholecalciferol (D-5000 PO) Take 5,000 Units by mouth Daily. diclofenac (VOLTAREN) 1% GEL Apply 1 g topically Daily as needed. escitalopram (LEXAPRO) 10 mg tablet One po qd 90 tablet 1 eszopiclone (LUNESTA) 2 MG TABS Take 1 tablet by mouth nightly. 90 tablet 0 fenofibrate (TRICOR) 48 mg tablet TAKE ONE TABLET BY MOUTH EVERY DAY 90 tablet 3 GARLIC Take 1,250 mg by mouth Daily. Glucosamine-Chondroitin (COSAMIN DS PO) Take 2 tablets by mouth Daily. HYDROcodone-acetaminophen (NORCO) 7.5-325 mg per tablet One po qd prn pain, avoid routi ne use, 90 day supply 90 tablet 0 Iron 15 MG/1.5ML SUSP Take by mouth Every other day. PurAbsorb L-Lysine HCl 500 MG CAPS Take 500 mg by mouth Daily. levothyroxine (SYNTHROID, LEVOTHROID) 100 mcg tablet TAKE ONE TABLET BY MOUTH EVERY MOR LIDIA BEFORE BREAKFAST 90 tablet 0 magnesium-calcium carbonate (SLOW-MAG) 71.5-119 MG TBEC Take 71.5-119 mg by mouth Daily . Melatonin (MELATONIN MAXIMUM STRENGTH) 5 MG TABS Take 5 mg by mouth Daily as needed. metoprolol succinate (TOPROL-XL) 50 mg 24 hr tablet TAKE ONE-HALF TABLET BY MOUTH DAILY 45 tablet 3 Multiple Vitamins-Minerals (OCUVITE ADULT 50+) CAPS Take by mouth Daily. omeprazole (PRILOSEC) 20 mg capsule Take one capsule once daily before breakfast. 90 ca psule 3 polyethylene glycol (MIRALAX) packet Take 17 g by mouth Daily as needed. Took it once o n the vitamin B-12 (CYANOCOBALAMIN) 1000 MCG tablet Take 1,000 mcg by mouth Daily. No current facility-administered medications for this visit. ALLERGIES: Allergies Allergen Reactions Diclofenac Sodium Duodenal Ulcer October 2013 Alendronate Sodium Patient not remember Celecoxib Patient not remember Penicillins Caused "black diarrhea" when she had her 4th child. Risedronate Sodium Patient not remember REVIEW OF SYSTEMS: GENERALLY: No fever, chills, weight changes. EYES: No vision changes. EARS, NOSE, AND THROAT: No hearing loss or tinnitis,no difficulty swallowing, no hoarseness . NEUROMUSCULAR: Please see the review of systems discussed above in the history of present illness. In addition, the patient has no dizziness, no blackouts, no headaches. CARDIOVASCULAR: No chest pain, no palpitations PULMONARY: No shortness of breath, no cough. GASTROINTESTINAL: No nausea, vomiting or diarrhea GENITOURINARY: No dysuria or hematuria SKIN: No rashes. HEMATOLOGIC/LYMPHATIC: No abnormal bleeding PHYSICAL EXAMINATION: Filed Vitals: 01/26/15 1206 PainSc: 3 Body mass index is 32.08 kg/(m^2). GENERAL: The patient is well developed and well nourished. She does not appear uncomfortab le when seated. HEENT: HEAD/FACE: EYES: Normocephalic and atraumatic. There are no areas of recent trauma. Normal sclerae without icterus. SKIN Limited skin exam shows no significant rashes or lesions. There are not scars in the lumbar region. CHEST: The patient is in no acute respiratory distress with unlabored respirations. HEART: There is not lower extremity edema. ABDOMEN: The patient is not obese. NEUROLOGIC: The patient is awake, alert, and oriented to time, place, person. She follows simple and complex commands. Her speech is fluent. She comprehends speech well. She has no apparent deficits with short or vermin 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 She has appropriate fund of knowledge Cranial nerves 2-12 appear grossly intact. Sensory exam does not show diminished sensation to light touch in the lower extremities. MUSCULOSKELETAL There is no tenderness in the midline of the cervical or thoracic spine. T here is no major palpable deformity of the spine. Straight leg raise and slump-sit are negative. Pablo's maneuver and impingement testing were negative for any groin pain. There was no tenderness to palpation over the greater tr ochanters or sacral sulci. The patient localized the majority of the pain to the mid thorac ic region and to the lower lumbar region. Lumbar facet loading was positive. The patient lo calized the pain to the lower lumbar region, it seemed as though it was as low as L5-S1 but may have been as high as L4-L5 Strength testing showed 5/5 strength throughout the lower ext remities. The patient was able to heel and toe walk without difficulty. There was no redne ss, effusion, warmth or joint line tenderness in the knees or ankles. RADIOGRAPHIC REVIEW: The patient's imaging was reviewed in detail with the patient today during the visit. The M RI of the lumbar spine shows that there is fairly severe facet arthritis at L4-L5 with large facet cysts at that level. There is also moderate to severe DDD at the L5-S1 level. ASSESSMENT: 1. Chronic low back pain 2. Facet arthritis of lumbar region 3. DDD (degenerative disc disease), lumbar PLAN: 1. Unfortunately the patient has not received relief with either physical therapy or the r ecent medial branch blocks performed targeting the L5-S1 level. She continues to have moder ate debilitating pain to the low back and the thoracic area. Advanced imaging of the low ba ck in the form of a lumbar MRI does show that the L4-L5 level is actually the level with the worst facet arthritis, where it is severe and there are large facet cysts. Based on the patient's history, physical examination and review of the available imaging th e patient has been diagnosed with pain coming primarily from the lumbar facet joints with no other lumbar pathology considered to be a significant possible source of discomfort. The p atient's pain has been moderate to severe, rated as a 5-6 usually on a 0-10 scale. The pain is impacting activities of daily living including any activities that require prolonged sta nding, walking, bending or stooping. The patient has been dealing with this pain for years a nd has failed conservative treatment with NSAIDs, PT and a home exercise program. I discuss ed treatment options in detail with the patient and in the end we decided to pursue medial b ranch blocks again but this time we are targeting the L4-L5 level based on the new imaging. This has been ordered and will be performed in the near future. The patient was instructed to keep a detailed pain diary of the response to treatment and w ill return the pain diary to our office 2 weeks after the procedure. 2. Medications have been reviewed at today's visit with no changes made at this time. She cannot take any NSAIDS due to developing ulcers previously with NSAIDS. She has used [place] marta in the past and is still now using Voltaren gel. She does have hydrocodone/apap which p rovides significant relief but she is hoping to not have to take that very often. ELECTRONICALLY EDITED AND SIGNED BY: Harsha Selby MD, 01/27/2015Electronically sign ed by Harsha Selby MD at 01/27/2015 4:37 PM PDTdocumented in this encounter Plan of Treatment +--------+---------+ + + + | Date | Type | Specialty | Care Team | Description | +--------+---------+ + + + | 06/02/ | Office | Orthopedic Surgery | Ulysses Jensen, | | | 2019 | Visit | | MD [address] | | | | | | [place] | | | | | | [id number] | | | | | | | | +--------+---------+ + + + | 11/21/ | Office | Cardiology | Yesi, | | | 2019 | Visit | | JOSE ALBERTO [address] | | | | | | [place] | | | | | | [place] [address] | | | | | | [phone] | | | | | | | | +--------+---------+ + + + documented as of this encounter Results FL Facet Injection Lumbar Sacral (03/06/2015 1:27 PM PDT) + + | Specimen | + + | | + + + + + | Narrative | Performed At | + + + | 03/06/2015 Procedure: Lumbar Medial Branch Block Diagnosis: | [facility] | | Lumbar spondylosis 723.1 Soumyanito Jacskon presents to the | [facility] | | fluoroscopy suite for fluoroscopically guided bilateral L3 and | [facility] | | bilateral L4 medial branch blocks as part of conservative management | - IMAGING | | for chronic pain with lumbar spondylosis. Based on the patient's | | | history, physical examination and review of the available imaging | | | the patient has been diagnosed with pain coming primarily from the | | | lumbar facet joints. The patient's pain has been moderate to severe, | | | rated as a 4-8 usually on a 0-10 scale. The pain is impacting | | | activities of daily living including activities that require | | | prolonged standing, walking, bending and stooping. The patient has | | | been dealing with this pain for years and has failed conservative | | | treatment with NSAIDs, PT and a home exercise program therefore | | | diagnostic medial branch blocks were ordered today targeting the | | | L4-L5 facets. Prior medial branch blocks targeting the L5-S1 | | | facets failed to provide the desired relief but new imaging showed | | | that the worst facet arthritis is actually at L4-L5 and therefore we | | | did decide to try the procedure at that level this time around. | | | After informed consent was obtained, the patient lay in a prone | | | position on the fluoroscopy table. The areas were identified under | | | fluoroscopic guidance. The areas were prepped and draped in a | | | sterile fashion. A 25-gauge 1.5-inch needle was inserted into each | | | region and approximately 2 mL of buffered 1% lidocaine was infused. | | | Then a 22-gauge spinal needle was advanced to the correct position | | | at each site under fluoroscopic guidance. Confirmation into the | | | proper location was obtained with infusion of a small amount of | | | Isovue contrast at each site. Then 0.5 mL of 0.5% bupivacaine was | | | infused at each location. Pre- and postprocedure blood pressures | | | were stable. The patient was given verbal as well as written | | | followup instructions. The patient reported good improvement in pain | | | symptoms postprocedure suggesting that this was a positive block. She | | | will continue to monitor her pain over the next 4-6 hours and | | | report back for additional treatment planning. Prior to the | | | start of the procedure the following were performed or verified | | | including correct patient identity, correct site and side marked and | | | visible, agreement on the procedure to be done, correct patient | | | positioning and an accurate procedure consent form, and any safety | | | precautions based on clinical history and/or medications have been | | | addressed. I personally performed the procedure above. | | | Estimated blood loss: Minimal Complications: None Findings: As | | | expected Anesthesia: Local 1% Lidocaine | | + + + + + + + + | Performing | Address | City/State/Zipcode | Phone Number | | Organization | | | | + + + + + | [facility] | [address] | [place] | [phone] | | [facility] | | [address] | | | - IMAGING | | | | + + + + + documented in this encounter Visit Diagnoses + + | Diagnosis | + + | Chronic low back pain - Primary Lumbago | + + | Facet arthritis of lumbar region Lumbosacral spondylosis without myelopathy | + + | DDD (degenerative disc disease), lumbar Degeneration of lumbar or lumbosacral | | intervertebral disc | + + documented in this encounter
--- OUTSIDE RECORDS SUMMARY | ~2019-04-12 | XMS | Encounter Summary ---
Demographics + + + | Address | [address] | | | [place] [address] | + + + | Home Phone | | + + + | Preferred Language | Unknown | + + + | Marital Status | | + + + | Shinto Affiliation | Unknown | + + + | Race | Unknown | + + + | Ethnic Group | Unknown | + + + Author + + + | Author | [facility] | | | and [place] | + + + | Organization | [facility] | | | and [place] | + + + | Address | Unknown | + + + | Phone | Unavailable | + + + Support + + + + + | Name | Relationship | Address | Phone | + + + + + | Osmin Jackson | ECON | [address] | | | | | [place] [address] | | + + + + + | Hunter Jackson | ECON | [place] | | + + + + + | Wes Jackson | ECON | [place], [place] | | + + + + + | Oziel Jackson | ECON | [place], [place] | | + + + + + Care Team Providers + +------+ + | Care Stock Unloader Name | Role | Phone | + [...] + + | 07/02/ | Office | [facility] | Braulio León | Psychophysiologic | | 2018 | Visit | SLEEP DISORDER [address] | MD [address] | insomnia (Primary | | | | [address] [place] | [address] [place] | Dx) | | | | [place] [address] | [place] [address] | | | | | [phone] | [phone] | | | | | | | [...] her son. 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
--- OUTSIDE RECORDS SUMMARY | ~2019-04-12 | XMS | Encounter Summary ---
Demographics + + + | Address | [address] | | | [place] [address] | + + + | Home Phone [...] Author | [facility] | | | and [place] | + + + | Organization | [facility] | [...] [place] | | | | | [place] [address] | | + + + + + | Hunter Jackson | ECON | [place] | | + + + + + | Wes Jackson | ECON | [place], [place] | | + + + + + | Oziel Jackson | ECON | [place], [place] | | + + + + + Care Team Providers + +------+ + | Care Sample Cutter Name | Role | Phone | + +------+ + | Gunderson, Kellie PA | PCP | | + +------+ + Reason for Visit +--------+ + | Reason | Comments | +--------+ + | Other | plan of care | +--------+ + Encounter Details +--------+ + + + + | Date | Type | Department | Care Team | Description | +--------+ + + + + | 10/16/ | Telephone | [facility] | Irina Simms, | Other (plan of care) | | 2017 | | CARDIOLOGY [address] | | | | | [place], | [place], | | | | | [place] [address] | [place] [address] | | | | | [phone] | [phone] | | | | | | | [...] [address] | | | | | | [id number] | | | | | | | | +--------+---------+ + + + | 11/21/ | Office | Cardiology | Yesi, | | | 2019 | Visit | | JOSE ALBERTO [address] | | | | | | [place] | | | | | | [place] [address] | | | | | | [phone] | | | | | | | | +--------+---------+ + + + documented as of this encounter Visit Diagnoses Not on filedocumented in this encounter"
--- OUTSIDE RECORDS SUMMARY | ~2019-04-12 | XMS | Encounter Summary ---
Demographics + + + | Address | [address] | | | [place] [address] | + + + | Home Phone | | + + + | Preferred Language | Unknown | + + + | Marital Status | | + + + | Zoroastrianism Affiliation | Unknown | + + + | Race | Unknown | + + + | Ethnic Group | Unknown | + + + Author + + + | Author | [facility] | | | and [place] | + + + | Organization | [facility] [...] | | | | | [place] [address] | | + + + + + | Hunter Jackson | ECON | [place] | | + + + + + | Wes Jackson | ECON | [place], [place] | | + + + + + | Oziel Jackson | ECON | [place], [place] | | + + + + + Care Team Providers + +------+ + | Care Solar Energy Systems Engineer Name | Role | Phone [...] + + | Closed | Specialty | Physical | Diagnoses | [facility], | | | | Services | Therapy | Vertigo | Rodolfo Reilly MD | | | | Required | | | [address] | | | | | | | [place] | | | | | | | [place] | | | | | | | [address] | | | | | | | Phone: | | | | | | | [phone] | | | | | | | Fax: | | | | | | | [phone] | | +--------+ + + + + + Reason for Visit + + + | Reason | Comments | + + + | Referral | PT in [place] | + + + Encounter Details +--------+ + + + + | Date | Type | Department | Care Team | Description | +--------+ + + + + | 10/17/ | Telephone | [facility] | Rodolfo Cruz, | Referral (PT in | | 2015 | | MEDICINE [address] | MD [address] | [place]) | | | | [facility] | [place], [place] | | | | | [place] [address] | [address] | | | | | [phone] | | | +--------+ + + + [...] | | | | | | [place] [address] | | | | | | [phone] | | | | | | | | +--------+---------+ + + + + + +--------+ + + | Name | Type | Priori | Associated Diagnoses | Order Schedule | | | | ty | | | + + +--------+ + + | Ambulatory referral | Outpatient | Routin | Vertigo | Ordered: 10/18/2015 | | to Physical Therapy | Referral | e | | | + + +--------+ + + documented as of this encounter Visit Diagnoses + + | Diagnosis | + + | Vertigo - Primary Dizziness and giddiness | + + documented in this encounter"
--- OUTSIDE RECORDS SUMMARY | ~2019-04-12 | XMS | Encounter Summary ---
Demographics + + + | Address | [address] | | | [place] [address] | + + + | Home Phone | | + + + | Preferred Language | Unknown | + + + | Marital Status | | + + + | Spiritism Affiliation | Unknown | + + + | Race | Unknown | + + + | Ethnic Group | Unknown | + + + Author + + + | Author | [facility] | | | and [place] | + + + | Organization | [facility] | | | and [place] | + + + | Address | Unknown | + + + | Phone | Unavailable | + + + Support + + + + + | Name | Relationship | Address | Phone | + + + + + | Osmin Jackson | ECON | [address] | | | | | [place] [address] | | + + + + + | Hunter Jackson | ECON | [place] | | + + + + + | Wes Jackson | ECON | [place], [place] | | + + + + + | Oziel Jackson | ECON | [place], [place] | | + + + + + Care Team Providers + +------+ + | Care Associate Director Of Nursing Name | Role | Phone | + [...] Closed | | Radiology | Diagnoses | [place], | [facility] | | | | | Heart | MD Irina | [address] | | | | | murmur | [address] | [place], | | | | | Procedures | [address] | [place] | | | | | ECHO | [place], | [address] | | | | | Complete MD | [place] [address] | Phone: | | | | | ECHO HEART | Phone: | [phone] | | | | | XTHORACIC,CO | [phone] | Fax: | | | | | MPLETE W | Fax: | [phone] | | | | | DOPPLER MD | [phone] | | | | | | ECHO HEART | | | | | | | XTHORACIC,[place] | | | | | | | MPLETE, W/O | | | | | | | DOPPLER | | | +--------+--------+ + + + + Reason for Visit + + + | Reason | Comments | + + + | New Patient | | + + + | Hypertension | | + + + Evaluate & Treat (Routine) +--------+ + + + + + | Status | Reason | Specialty | Diagnoses / | Referred By | Referred To | | | | | Procedures | Contact | Contact | +--------+ + + + + + | Closed | Specialty | Cardiology | Diagnoses | [place]asch, | Mendez, | | | Services | | Essential | Rodolfo Reilly MD | MD Irina | | | Required | | hypertension | [address] [facility] | [address] | | | | | | [address] [place] | [address] | | | | | | [place], [place] | [place], | | | | | | [address] | [place] [address] | | | | | | Phone: | Phone: | | | | | | [phone] | [phone] | | | | | | Fax: | Fax: | | | | | | [phone] | [phone] | +--------+ + + + + + Encounter Details +--------+---------+ + + + | Date | Type | Department | Care Team | Description | +--------+---------+ + + + | 10/17/ | Office | [facility] | Irina Simms, | Essential | | 2015 | Visit | CARDIOLOGY [address] | [address] | hypertension | | | | [address] [place], | [place], | (Primary Dx); Heart | | | | [place] [address] | [place] [address] | murmur | | | | [phone] | [phone] | | | | | | | [...] + + + | Blood Pressure | 180/78 | 10/17/2014 2:05 PM | | | | | PDT | | + + + + + | Pulse | 60 | 10/17/2014 1:50 PM | regular | | | | PDT | | + + + + + | Temperature | - | - | | + + + + + | Respiratory Rate | 16 | 10/17/2014 1:50 PM | | | | | PDT | | + + + + + | Oxygen Saturation | - | - | | + + + + + | Inhaled Oxygen | - | - | | | Concentration | | | | + + + + + | Weight | 85.7 kg (189 lb) | 10/17/2014 1:50 PM | | | | | PDT | | + + + + + | Height | 162.6 cm (5' 4") | 10/17/2014 1:50 PM | | | | | PDT | | + + + + + | Body Mass Index | 32.44 | 10/17/2014 1:50 PM | | | | | PDT | | + + + + + documented in this encounter Patient Instructions Patient Instructions Joanna Tan RN - 10/17/2014 2:53 PM PDT1. Start Hydrochlorothia zide (HCTZ) 25mg - take one tablet by mouth one time daily 2. Start Lipitor (Atorvastatin) 10mg - take one tablet by mouth one time daily 3. Check blood test in one week 4. Check blood pressure and pulse twice daily for two weeks, mail back in envelope provided 5. Echo soon 6. Follow up in Cardiology in about one monthElectronically signed by CB Cardoza t 10/17/2014 2:54 PM PDT documented in this encounter Progress Notes Irina Simms MD - 10/17/2014 2:21 PM PDTFormatting of this note might be different f rom the original. PATIENT NAME: Soumya Jackson : 1935: AGE: 79 y.o. REFERRED BY: Rodolfo Cruz PRIMARY CARE: Rodolfo Cruz MD NEW PATIENT OFFICE VISIT Date of Service: 10/17/2014 HISTORY OF PRESENT ILLNESS: Soumya Jackson is a 79 y.o. female with a history of essential hypertension, osteoarthrit is, hypothyroidism, dyslipidemia, elevated CRP. She is being seen today for follow up hyper tension. Today, patient is feeling good from cardiac standpoint. Patient is physically active and e xercises regularly by attending water aerobic program in an attendant, [place]. She cannot walk far due to her chronic back pain . Patient also enjoys rastafarian activity. There is no ch est pain or chest discomfort both at rest and on exertion. Patient denies breathlessness. There is no palpitation dizziness or lightheadedness. There is no ankle or leg swelling. P atient can sleep on one pillow at night without difficulty breathing. CURRENT PROBLEMS Patient Active Problem List Diagnosis [...] Facet arthritis of lumbar region Elevated troponin Essential hypertension MEDICAL, SURGICAL, AND PERSONAL HISTORY Past Surgical History Procedure Laterality Date Colonoscopy 05/2002; 03/28/10 next due 03/2020 Removal lower left nodules 2004 Foot fracture surgery 2004 left foot Tonsillectomy and adenoidectomy 1955 Upper gastrointestinal endoscopy 11/15/2013 EGD * IP RM: 428 * ; Laterality: N/A; Surgeon: Lauri Garrison MD; [facility] Upper gastrointestinal endoscopy 11/04/2013 EGD IP 449; Laterality: N/A; Surgeon: Samm Pandya MD; Location: [facility] Family History Problem Relation Age of Onset Prostate cancer Father Stroke Father from femal hormones for his cancer Breast cancer Mother 75 High blood pressure Mother Other (See Comment) Mother Gout Stroke Maternal Grandmother Cancer Sister 59 brain Colon cancer Sister ileostomy High blood pressure Sister Migraines Sister Thyroid disease Sister in 2 half-sisters Cancer Sister High blood pressure Sister Other (See Comment) Sister sleep apnea Cancer Son 20 Non-Hodgkins lymphoma Heart disease Maternal Uncle Stroke Paternal Grandmother in her 50s Family Status Relation Status Age Father 70 prostate cancer Mother 83 cancer Sister 73 Bleed out. Crohns Disease Sister Alive Son 20 Sister 82 Stroke History Social History Marital Status: Spouse Name: N/A Number of Children: 4 Years of Education: N/A Social History Main Topics Smoking status: Former Smoker -- 3.00 packs/day for 20 years Types: Cigarettes Quit date: 05/12/1976 Smokeless tobacco: Never Used Alcohol Use: No Drug Use: No Sexual Activity: No Other Topics Concern None Social History Narrative Exercise: getting back to swimming, and Physical Therapy Caffeine:2-3 cups during the day Living situation:Alone Born in [place] since 1965 Marital status: Children: 6, 5 living, 10 grandchildren 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 Calcium Citrate-Vitamin D (CITRACAL MAXIMUM PO) TABS Take one by mouth three times rafia y. Cholecalciferol (D-5000 PO) Take 5,000 Units by mouth Daily. diclofenac (VOLTAREN) 1% GEL Apply 1 g topically Daily as needed. escitalopram (LEXAPRO) 10 mg tablet Take 0.5 tablets by mouth Daily. 30 tablet 1 eszopiclone (LUNESTA) 2 MG TABS [...] mg by mouth Daily. levothyroxine (SYNTHROID, LEVOTHROID) 112 mcg tablet One po qd 90 tablet 3 magnesium-calcium carbonate (SLOW-MAG) 71.5-119 MG [...] not remember ROS Review of Systems Constitutional: Positive for chills, malaise/fatigue and diaphoresis. Negative for fever an d weight loss. HENT: Positive for congestion, hearing loss and nosebleeds. Negative for ear discharge, ear pain, sore throat and tinnitus. Eyes: Negative for blurred vision and double vision. Respiratory: Positive for cough. Negative for shortness of breath and wheezing. Cardiovascular: Negative for chest pain, palpitations, orthopnea (electric bed), claudicati on and leg swelling. Gastrointestinal: Negative for heartburn, nausea, vomiting, abdominal pain, diarrhea, const ipation, blood in stool and melena. Genitourinary: Positive for urgency. Negative for dysuria, frequency, hematuria and flank p ain. Musculoskeletal: Positive for back pain and neck pain. Negative for myalgias, joint pain an d falls. Skin: Positive for rash. Negative for itching. Neurological: Positive for tingling and weakness. Negative for dizziness, tremors, seizures , loss of consciousness and headaches. Endo/Heme/Allergies: Negative for environmental allergies and polydipsia. Does not bruise/b leed easily. Psychiatric/Behavioral: Positive for memory loss. The patient has insomnia. The patient is not nervous/anxious. OBJECTIVE: PHYSICAL EXAM BP 180/78 | Pulse 60 | Resp 16 | Ht 1.626 m (5' 4") | Wt 85.73 kg (189 lb) | BMI 32.43 kg/m 2 Physical Exam Constitutional: She appears well-developed and well-nourished. No distress. Female individual without acute distress. Neck: Normal carotid pulses, no hepatojugular reflux [...] not e xhibit a depressed mood. ECG: Sinus rhythm, left atrial enlargement. LAB RESULTS: LIPID Lab Results Component Value Date CHOL 179 10/22/2013 TRIG 80 10/22/2013 HDL 62 10/22/2013 LDL 101 10/22/2013 CHOLHDL 2.9 10/22/2013 CHEMISTRY Lab Results Component Value Date GLU 102 06/16/2014 NA 135* 06/16/2014 K 3.9 06/16/2014 CL 99 06/16/2014 CO2 30 06/16/2014 CALCIUM 9.8 06/16/2014 ALKPHOS 75 06/16/2014 AST 20 06/16/2014 ALT 14 06/16/2014 BILITOT 0.4 06/16/2014 CREA 0.65 06/16/2014 CREA 0.65 06/16/2014 BUN 11 06/16/2014 BUN 11 06/16/2014 EGFR 60 09/03/2012 HEMATOLOGY Lab Results Component Value Date WBC 10.7 06/16/2014 HGB 14.9 06/16/2014 HCT 44.5 06/16/2014 PLT 396 06/16/2014 I reviewed records from Rodolfo Estrada M.D. for office visit on 08/24/14. ASSESSMENT: 1. Essential hypertension A. Today, blood pressure is elevated. She said her blood pressure at home is running betw een 150-160 mmHg. Otherwise, she is asymptomatic. There is no signs and symptoms of overt c ongestive heart failure. She is in a class I of [place] [employer] functional class . There is no fluid retention on physical examination. So far, blood work including CBC, kidney function and liver function are normal. UA showe d no proteinuria. 2. Heart murmur A. Echocardiogram, 11/03/2013 shows normal LV size and systolic function with LVEF 63%, mil d aortic, mitral, and tricuspid insufficiency, RVSP 43-48 mm mercury, borderline to mild emmanuelle trial enlargement, compared to patient's prior study 2010, no significant changes are noted. 3. Dyslipidemia and elevated CRP A. CRP is 9.6 on 08/03/14. Lab Results Component Value Date CHOL 179 10/22/2013 TRIG 80 10/22/2013 HDL 62 10/22/2013 LDL 101 10/22/2013 CHOLHDL 2.9 10/22/2013 4. Osteoarthritis with severe chronic back pain 5. Hypothyroidism PLAN: 1. I spend time at length talking about natural course, treatment and prognosis of uncontr olled hypertension. 2. Recommend low salt diet. 3. I recommend a therapeutic lifestyle change including walking 30 minutes a day, choosing healthy choices of diet and weight reduction. 4. Add HCTZ 25 mg once a day to her medical regimen to lower blood pressure. 5. Check blood pressure x 2 weeks. Check minichem in 1 week. 6. Add atorvastatin 10 mg once a day to treat high CRP. 7. Echocardiogram is warranted to assess cardiac murmur. Electronically signed by: Irina Simms MD [facility] 10/17/2014 Portions of this chart may have been created with [employer] voice recognition software. Occasi onal wrong-word or [...] | | 2019 | Visit | | [address] | | | | [...] | | | | | | [place] [address] | | | | | | [phone] | | | | | | | | +--------+---------+ + + + + +------+--------+ + + | Name | Type | Priori | Associated Diagnoses | Order Schedule | | | | ty | | | + +------+--------+ + + | ECG 12 lead | ECG | Routin | Essential | Ordered: 10/17/2014 | | | | e | hypertension | | + +------+--------+ + + documented as of this encounter Procedures + +--------+ + + + | Procedure Name | Priori | Date/Time | Associated Diagnosis | Comments | | | ty | | | | + +--------+ + + + | ECG - EXTERNAL SCAN | | 10/17/2014 | | Results for this | | | | 12:00 AM | | procedure are in the | | | | PDT | | results section. | + +--------+ + + + documented in this encounter Results ECHO Complete (10/25/2014 11:36 AM PDT) + + | Specimen | + + | | + + + + + | Narrative | Performed At | + + + | [facility] ECHOCARD[facility]PORT | [place] | | STUDY DATE: 10/25/2014 PATIENT NAME: Soumya Jackson : | [facility] | | 1935 PCP: Rodolfo Cruz MD CLINICAL | [facility] | | HISTORY/DIAGNOSIS: MURMUR A transthoracic echocardiogram with | - IMAGING | | M-mode, pulsed-wave and color Doppler was performed with standard | | | views obtained. The technical quality of this examination is good. | | | The heart rhythm during the echo is sinus rhythm. The M-mode, | | | two-dimensional, color flow and spectral Doppler data were reviewed | | | and support the following interpretation: Interpretation: Left | | | Atrium: Left atrial size is normal. Right Atrium: Right atrial | | | sizes normal. Right ventricle: Right ventricular size is normal | | | with normal wall thickness and normal right ventricular systolic | | | function. Left ventricle: Left ventricular size is normal with | | | normal wall thickness and motion, and normal left ventricular | | | systolic function. The estimated ejection fraction is 65-70 %. | | | Grade 1 left ventricular diastolic dysfunction. Aortic root: | | | Aortic root is normal. Aortic valve: Aortic valve is trileaflet | | | with mild thickening and opens normally. mild to moderate aortic | | | valve insufficiency Mitral valve: Mitral valve is mildly thickening | | | calcified with a mild mitral valve regurgitation. There is a | | | moderate mitral annular calcification. Pulmonic valve: Pulmonic | | | valve is normal. Tricuspid valve: Tricuspid valve is normal. mild | | | tricuspid valve regurgitation. Vena cava: The inferior vena cava | | | is normal. There is greater than 50% inspiratory collapse of the | | | IVC. Pericardium: Pericardium is normal. Pulmonary artery: | | | Pulmonary artery is normal. mild pulmonary hypertension with a | | | peak systolic pressure of 35-40 mmHg. IMPRESSIONS: 1. Normal | | | left ventricular size, wall thickness and motion. Preserved left | | | ventricular systolic function. LVEF is 65-70%. 2. Grade 1 left | | | ventricular diastolic dysfunction. 3. Mildly thickened trileaflet | | | aortic valve with adequate opening. There is a mild to moderate | | | aortic valve insufficiency. 4. Mildly thickened and calcified | | | mitral valve with a mild mitral valve regurgitation. 5. Moderate | | | mitral annular calcification. 6. Mild tricuspid valve | | | regurgitation. 7. Mild pulmonary hypertension with a peak systolic | | | pressure of 35-40 mmHg. 8. When compared to echocardiography on | | | 11/03/13, there is no significant changes. Measurements: | | | Height: 66 Weight: 200 Aortic root: 30 mm Aortic cusp sep: 16 | | | mm LA: 40 mm IVS-diastole: 9 mm IVS-systole: 13 mm LVPW | | | diastole: 9 mm LVPW systole: 14 mm LV diameter-diastole: 46 mm | | | LV diameter-systole: 27 mm Fractional shortenin % PFV | | | aortic valve: m/s MPG mitral valve: mmHg PFV TR jet: 2.73 | | | m/s RA/RV PP mmHg LA volume: 26 mL LA index: 13 mL/m2 | | | Mitral Inflow DT: 259 ms IVRT: 125 ms Valsalva: Not needed | | | PWDTI S wave: 9.7 cm/s PWDTI E wave: 9.2 cm/s PWDTI A wave: | | | 14.9 cm/s E/A Ratio: 0.617 E/E Ratio: Signed by: | | | Irina Simms MD [facility] 10/25/2014 11:39 | | | Supervisor [employer]: Samm Caceres, RDCS, RVT, RDMS | | + + + + + + + + | Performing | Address | City/State/Zipcode | Phone Number | | Organization | | | | + + + + + | [facility] | [address] | [place], [place] | [phone] | | [facility] | | [address] | | | - IMAGING | | | | + + + + + ECG - EXTERNAL SCAN (10/17/2014 12:00 AM PDT) + + + | Narrative | Performed At | + + + | Ordered by an | | | unspecified provider. | | + + + documented in this encounter Visit Diagnoses + + | Diagnosis | + + | Essential hypertension - Primary Unspecified essential hypertension | + + | Heart murmur Undiagnosed cardiac murmurs | + + documented in this encounter
--- OUTSIDE RECORDS SUMMARY | ~2019-04-12 | XMS | Encounter Summary ---
Demographics + + + | Address | [address] | | | [place] [address] | + + + | Home Phone | | + + + | Preferred Language | Unknown | + + + | Marital Status | | + + + | Taoism Affiliation | Unknown | + + + | Race | Unknown | + + + | Ethnic Group | Unknown | + + + Author + + + | Author | [facility] | | | and [place] | + + + | Organization | [facility] | | | and [place] | + + + | Address | Unknown | + + + | Phone | Unavailable | + + + Support + + + + + | Name | Relationship | Address | Phone | + + + + + | Osmin Jackson | ECON | [address] | | | | | [place] [address] | | + + + + + | Hunter Jackson | ECON | [place] | | + + + + + | Wes Jackson | ECON | [place], [place] | | + + + + + | Oziel Jackson | ECON | [place], [place] | | + + + + + Care Team Providers + +------+ + | Care Clay Miner Name | Role | Phone | + +------+ + | Rodolfo Cruz MD | PCP | | + +------+ + Reason for Visit + + + | Reason | Comments | + + + | Injections | Follow up Right shoulder and Right CMC injection | + + + Encounter Details +--------+---------+ + + + | Date | Type | Department | Care Team | Description | +--------+---------+ + + + | 08/30/ | Office | [facility] | Ulysses Jensen, | Rotator cuff | | 2016 | Visit | ORTHOPEDIC SURGERY | MD [address] | syndrome of right | | | | [address] [facility] | [place] [address] | shoulder (Primary | | | | [place], [place] | [address] | Dx); Primary | | | | [address] | | osteoarthritis of | | | | [phone] | | first | | | | | | carpometacarpal | | | | | | joint of right hand | +--------+---------+ + + + Social History [...] Weight | 85.7 kg (189 lb) | 08/31/2015 10:40 AM | | | | | PDT | | + + + + + | Height | 162.6 cm (5' 4") | 08/31/2015 10:40 AM | | | | | PDT | | + + + + + | Body Mass Index | 32.44 | 08/31/2015 10:40 AM | | | | | PDT | | + + + + + documented in this encounter Progress Notes Ulysses Jensen MD - 09/01/2015 10:35 AM PDTPatient returns for right first CMC joint inje ction in her right shoulder subacromial injection Under sterile conditions today I injected her right first CMC joint using a half cc of Violeta stone and a cc of Marcaine Under sterile conditions I then injected the right shoulder subacromial space with Kenalog 40 mg and Marcaine 3 cc documented in this en counter Plan of Treatment +--------+---------+ + + + | Date | Type | Specialty | Care Team | Description | +--------+---------+ + + + | 06/02/ | Office | Orthopedic Surgery | Ulysses Jensen, | | | 2019 | Visit | | MD [address] | | | | | | [place], [place] | | | | | | [address] | | | | | | | | +--------+---------+ + + + | 11/21/ | Office | Cardiology | Yesi, | | | 2019 | Visit | | JOSE ALBERTO [address] | | | | | | [place], | | | | | | [place] [address] | | | | | | [phone] | | | | | | | | +--------+---------+ + + + documented as of this encounter Visit Diagnoses + + | Diagnosis | + + | Rotator cuff syndrome of right shoulder - Primary Disorders of bursae and tendons in | | shoulder region, unspecified | + + | Primary osteoarthritis of first carpometacarpal joint of right hand Primary localized | | osteoarthrosis, hand | + + documented in this encounter
--- OUTSIDE RECORDS SUMMARY | ~2019-04-12 | XMS | Encounter Summary ---
Demographics + + + | Address | [address] | | | [place] [address] | + + + | Home Phone | | + + + | Preferred Language | Unknown | + + + | Marital Status | | + + + | Congregation Affiliation | Unknown | + + + | Race | Unknown | + + + | Ethnic Group | Unknown | + + + Author + + + | Author | [facility] | | | and [place] | + + + | Organization | [facility] | | | and [...] | | | | | [place] [address] | | + + + + + | Hunter Jackson | ECON | [place] | | + + + + + | Wes Jackson | ECON | [place], [place] | | + + + + + | Oziel Jackson | ECON | [place], [place] | | + + + + + Care Team Providers + +------+ + | Care Implementation Specialist Payroll Name | Role | Phone | + +------+ + | Rodolfo Cruz MD | PCP | | + +------+ + Reason for Visit + + + | Reason | Comments | + + + | Labs Only | [facility] called to [facility] in [place] | + + + Encounter Details +--------+ + + + + | Date | Type | Department | Care Team | Description | +--------+ + + + + | 02/03/ | Telephone | [facility] [place] [facility] | Rodolfo Cruz, | Labs Only ([facility] | | 2011 | | MEDICINE [address] | [address] | labs called to | | | | [address] [place] | [place] [address] | em in | | | | [place] [address] | [address] | [place]) | | | | [phone] | | | +--------+ + + + [...] [address] | | | | | | [address] | | | | | | | | +--------+---------+ + + + | 11/21/ | Office | Cardiology | Yesi, | | | 2019 | Visit | | JOSE ALBERTO [address] | | | | | | [place], | | | | | | [place] [address] | | | | | | [phone] | | | | | | | | +--------+---------+ + + + documented as of this encounter Visit Diagnoses Not on filedocumented in this encounter"
--- OUTSIDE RECORDS SUMMARY | ~2019-04-12 | XMS | Encounter Summary ---
Demographics + + + | Address | [address] | | | [place] [address] | + + + | Home Phone [...] Author | [facility] | | | and [place] | + + + | Organization | [facility] | | | and [...] | | | | | [place] [address] | | + + + + + | Hunter Jackson | ECON | [place] | | + + + + + | Wes Jackson | ECON | [place], [place] | | + + + + + | Oziel Jackson | ECON | [place], [place] | | + + + + + Care Team Providers + +------+ + | Care Store Clerk Cashier Name | Role | Phone | + [...] Description | +--------+--------+ + + + | 05/07/ | Refill | [facility] [place] [facility] | Rodolfo Cruz, | Medication Refill | | 2011 | | MEDICINE [place] | [address] | | | | | [address] | [place] [address] | | | | | [place] | [address] | | | | | [address] | | | | | | [phone] | | | +--------+--------+ + + + [...] | | | | | | [place] [address] | | | | | | [phone] | | | | | | | | +--------+---------+ + + + documented as of this encounter Visit Diagnoses + + | Diagnosis | + + | Hypothyroidism - Primary Unspecified hypothyroidism | + + documented in this encounter"
--- OUTSIDE RECORDS SUMMARY | ~2019-04-12 | XMS | Encounter Summary ---
Demographics + + + | Address | [address] | | | [place] [address] | + + + | Home Phone [...] | Author | [facility] | | | and [place] | + + + | Organization | [facility] | | | and [...] | | | | | [place] [address] | | + + + + + | Hunter Jackson | ECON | [place] | | + + + + + | Wes Jackson | ECON | [place], [place] | | + + + + + | Oziel Jackson | ECON | [place], [place] | | + + + + + Care Team Providers + +------+ + | Care Gun Stock Checker Name | Role | Phone | [...] + + | 09/20/ | Emergency | [facility] | Diogenes Gray, | Thoracic | | 2013 | | [facility] | [address] | radiculopathy | | | | [place] [address] | [facility] [place] | (Primary Dx) | | | | [place] | [place] [address] | | | | | [address] | [phone] | | | | | [phone] | | | +--------+ + + + [...] cannot be sent through Care Everywhere.THORACIC STRAIN ([place])documented in this encounter Medications at Time of [...] [place] | | | | | | [address] | | | | | | | | +--------+---------+ + + + | 11/21/ | Office | Cardiology | Yesi, | | | 2019 | Visit | | JOSE ALBERTO Linder [address] | | | | | | [place], | | | | | | [place] [address] | | | | | | [phone] | | | | | | | [...] + + + + | Color | Yellow | Light Yellow, | [facility] | | | | | Yellow | . [facility] | | | | [...] - 1.030 | [facility] | | | [place] | | | [facility] | | [...] + | [facility] | [address] | [place], [place] | [phone] | | [facility] | | [address] | | | - LABORATORY | | | | + + + + + | [facility] | [address] | [place], [place] | | | [facility] | | [address] | | | - LABORATORY | | [...] | 1.015 | | | | | [place], | | | | | | [facility], [...] + | MISCELLANEOUS LAB | | | [phone] | + +---------+ + + | MISCELANIOUS LAB | | | [phone] | + +---------+ + + documented in [...]
--- OUTSIDE RECORDS SUMMARY | ~2019-04-12 | XMS | Encounter Summary ---
Demographics + + + | Address | [address] | | | [place] [address] | + + + | Home Phone | | + + + | Preferred Language | Unknown | + + + | Marital Status | | + + + | Jain Affiliation | Unknown | + + + | Race | Unknown | + + + | Ethnic Group | Unknown | + + + Author + + + | Author | [facility] | | | and [place] | + + + | Organization | [facility] | | | and [place] | + + + | Address | Unknown | + + + | Phone | Unavailable | + + + Support + + + + + | Name | Relationship | Address | Phone | + + + + + | Osmin Jackson | ECON | [address] | | | | | [place] [address] | | + + + + + | Hunter Jackson | ECON | [place] | | + + + + + | Wes Jackson | ECON | [place], [place] | | + + + + + | Oziel Jackson | ECON | [place], [place] | | + + + + + Care Team Providers + +------+ + | Care Bisque Ware Dipper Name | Role | Phone | + +------+ + | Kellie Gunderson | PCP | | + +------+ + Encounter Details +--------+ + + + + | Date | Type | Department | Care Team | Description | +--------+ + + + + | 09/25/ | Abstract | [facility] | Irina Simms, | | | 2016 | | CARDIOLOGY [address] | MD [address] [place] | | | | | [place], | [place], | | | | | [place] [address] | [place] [address] | | | | | [phone] | [phone] | | | | | | | [...] STREET[place] | | | | | | [address] | | | | | | | | +--------+---------+ + + + | 11/21/ | Office | Cardiology | Yesi, | | | 2019 | Visit | | JOSE ALBERTO Linder [address] | | | | | | [place], | | | | | | [place] [address] | | | | | | [phone] | | | | | | | | +--------+---------+ + + + documented as of this encounter Procedures + +--------+ + + + | Procedure Name | Priori | Date/Time | Associated Diagnosis | Comments | | | ty | | | | + +--------+ + + + | EXTERNAL LAB: BUN | Routin | 09/18/2016 | | Results for this | | | e | | | procedure are in the | | | | | | results section. | + +--------+ + + + | EXTERNAL LAB: | Routin | 09/18/2016 | | Results for this | | GLUCOSE | e | | | procedure are in the | | | | | | results section. | + +--------+ + + + | EXTERNAL LAB: | Routin | 09/18/2016 | | Results for this | | TROPONIN T | e | | | procedure are in the | | | | | | results section. | + +--------+ + + + | EXTERNAL LAB: ALT | Routin | 09/18/2016 | | Results for this | | | e | | | procedure are in the | | | | | | results section. | + +--------+ + + + | EXTERNAL LAB: AST | Routin | 09/18/2016 | | Results for this | | | e | | | procedure are in the | | | | | | results section. | + +--------+ + + + | EXTERNAL LAB: | Routin | 09/18/2016 | | Results for this | | ALKALINE PHOSPHATASE | e | | | procedure are in the | | | | | | results section. | + +--------+ + + + | EXTERNAL LAB: | Routin | 09/18/2016 | | Results for this | | BILIRUBIN, TOTAL | e | | | procedure are in the | | | | | | results section. | + +--------+ + + + | EXTERNAL LAB: | Routin | 09/18/2016 | | Results for this | | ALBUMIN | e | | | procedure are in the | | | | | | results section. | + +--------+ + + + | EXTERNAL LAB: | Routin | 09/18/2016 | | Results for this | | PROTEIN, TOTAL | e | | | procedure are in the | | | | | | results section. | + +--------+ + + + | EXTERNAL LAB: | Routin | 09/18/2016 | | Results for this | | CALCIUM | e | | | procedure are in the | | | | | | results section. | + +--------+ + + + | EXTERNAL LAB: CARBON | Routin | 09/18/2016 | | Results for this | | DIOXIDE | e | | | procedure are in the | | | | | | results section. | + +--------+ + + + | EXTERNAL LAB: | Routin | 09/18/2016 | | Results for this | | CHLORIDE | e | | | procedure are in the | | | | | | results section. | + +--------+ + + + | EXTERNAL LAB: | Routin | 09/18/2016 | | Results for this | | POTASSIUM | e | | | procedure are in the | | | | | | results section. | + +--------+ + + + | EXTERNAL LAB: SODIUM | Routin | 09/18/2016 | | Results for this | | | e | | | procedure are in the | | | | | | results section. | + +--------+ + + + | EXTERNAL LAB: CBC | Routin | 09/18/2016 | | Results for this | | | e | | | procedure are in the | | | | | | results section. | + +--------+ + + + | EXTERNAL LAB: B TYPE | Routin | 09/18/2016 | | Results for this | | NATURETIC PEPTIDE | e | | | procedure are in the | | | | | | results section. | + +--------+ + + + | EXTERNAL LAB: EGFR | Routin | 09/18/2016 | | Results for this | | | e | | | procedure are in the | | | | | | results section. | + +--------+ + + + | EXTERNAL LAB: | Routin | 09/18/2016 | | Results for this | | CREATININE | e | | | procedure are in the | | | | | | results section. | + +--------+ + + + | CBC WITH | Routin | 09/18/2016 | | Results for this | | DIFFERENTIAL | e | | | procedure are in the | | | | | | results section. | + +--------+ + + + | COMPREHENSIVE | Routin | 09/18/2016 | | Results for this | | METABOLIC PANEL | e | | | procedure are in the | | | | | | results section. | + +--------+ + + + documented in this encounter Results CBC with Differential (09/18/2016) + + + + + + | Component | Value | Ref Range | Performed | Pathologist | | | | | At | Signature | + + + + + + | MCH | 34.0 (A) | 26.0 - 33.0 pg | | | + + + + + + | MCHC | 34.0 | 30.0 - 36.0 % | | | + + + + + + | % Basophils | 0.0 | 1.0 % | | | + + + + + + + + | Specimen | + + | Blood specimen | | (specimen) | + + External Lab: CBC (09/18/2016) + + + + + + | Component | Value | Ref Range | Performed | Pathologist | | | | | At | Signature | + + + + + + | WBC, | 11.7 (A) | 4.5 - 11 | EXTERNAL | | | External | | | LAB | | + + + + + + | HGB, | 14.8 | 12 - 16 | EXTERNAL | | | External | | | LAB | | + + + + + + | HCT, | 43.8 | 35 - 45 | EXTERNAL | | | External | | | LAB | | + + + + + + | PLT, | 370 | 140 - 440 | EXTERNAL | | | External | | | LAB | | + + + + + + | Neutrophils | 78.6 | 38 - 80 | EXTERNAL | | | %, | | | LAB | | | External | | | | | + + + + + + | Lymphocytes | 15.4 (A) | 24 - 44 | EXTERNAL | | | %, | | | LAB | | | External | | | | | + + + + + + | Monocytes | 4.7 | 0 - 12 | EXTERNAL | | | %, External | | | LAB | | + + + + + + | Eosinophils | 1.3 | 0 - 6 | EXTERNAL | | | %, | | | LAB | | | External | | | | | + + + + + + | RBC, | 4.36 | 3.8 - 5.1 | EXTERNAL | | | External | | | LAB | | + + + + + + | MCV, | 100 (A) | 81 - 99 | EXTERNAL | | | External | | | LAB | | + + + + + + | RDW, | 12.5 | 10 - 15 | EXTERNAL | | | External | | | LAB | | + + + + + + + + | Resulting Agency Comment | + + | [facility] | + + + +---------+ + + | Performing | Address | City/State/Zipcode | Phone Number | | Organization | | | | + +---------+ + + | EXTERNAL LAB | | | | + +---------+ + + Comprehensive Metabolic Panel (09/18/2016) + +-------+ + + + | Component | Value | Ref Range | Performed | Pathologist | | | | | At | Signature | + +-------+ + + + | Anion Gap | 13 | 7 - 21 mmol/L | | | + +-------+ + + + | BUN/Creatin | 21.2 | 6.0 - 28.6 | | | | ine Ratio | | | | | + +-------+ + + + | Globulin | 4 (A) | 1.8 - 3.5 | | | + +-------+ + + + | Albumin/Sarah | 1.1 | 1.1 - 2.4 | | | | bulin Ratio | | | | | + +-------+ + + + + + | Specimen | + + | Blood specimen | | (specimen) | + + External Lab: BUN (09/18/2016) + +-------+ + + + | Component | Value | Ref Range | Performed | Pathologist | | | | | At | Signature | + +-------+ + + + | BUN, | 14 | 6 - 23 | EXTERNAL | | | External | | | LAB | | + +-------+ + + + + + | Resulting Agency Comment | + + | [facility] | + + + +---------+ + + | Performing | Address | City/State/Zipcode | Phone Number | | Organization | | | | + +---------+ + + | EXTERNAL LAB | | | | + +---------+ + + External Lab: Glucose (09/18/2016) + +---------+ + + + | Component | Value | Ref Range | Performed | Pathologist | | | | | At | Signature | + +---------+ + + + | Glucose, | 107 (A) | 70 - 100 | EXTERNAL | | | External | | | LAB | | + +---------+ + + + + + | Resulting Agency Comment | + + | [facility] | + + + +---------+ + + | Performing | Address | City/State/Zipcode | Phone Number | | Organization | | | | + +---------+ + + | EXTERNAL LAB | | | | + +---------+ + + External Lab: Troponin T (09/18/2016) + +--------+ + + + | Component | Value | Ref Range | Performed | Pathologist | | | | | At | Signature | + +--------+ + + + | Troponin T, | <0.010 | 0.01 | EXTERNAL | | | External | | | LAB | | + +--------+ + + + + + | Resulting Agency Comment | + + | [facility] | + + + +---------+ + + | Performing | Address | City/State/Zipcode | Phone Number | | Organization | | | | + +---------+ + + | EXTERNAL LAB | | | | + +---------+ + + External Lab: ALT (09/18/2016) + +-------+ + + + | Component | Value | Ref Range | Performed | Pathologist | | | | | At | Signature | + +-------+ + + + | ALT, | 10 | 7 - 52 | EXTERNAL | | | External | | | LAB | | + +-------+ + + + + + | Resulting Agency Comment | + + | [facility] | + + + +---------+ + + | Performing | Address | City/State/Zipcode | Phone Number | | Organization | | | | + +---------+ + + | EXTERNAL LAB | | | | + +---------+ + + External Lab: AST (09/18/2016) + +-------+ + + + | Component | Value | Ref Range | Performed | Pathologist | | | | | At | Signature | + +-------+ + + + | AST, | 18 | 13 - 39 | EXTERNAL | | | External | | | LAB | | + +-------+ + + + + + | Resulting Agency Comment | + + | [facility] | + + + +---------+ + + | Performing | Address | City/State/Zipcode | Phone Number | | Organization | | | | + +---------+ + + | EXTERNAL LAB | | | | + +---------+ + + External Lab: Alkaline Phosphatase (09/18/2016) + +-------+ + + + | Component | Value | Ref Range | Performed | Pathologist | | | | | At | Signature | + +-------+ + + + | ALP, | 60 | 31 - 130 | EXTERNAL | | | External | | | LAB | | + +-------+ + + + + + | Resulting Agency Comment | + + | [facility] | + + + +---------+ + + | Performing | Address | City/State/Zipcode | Phone Number | | Organization | | | | + +---------+ + + | EXTERNAL LAB | | | | + +---------+ + + External Lab: Bilirubin, Total (09/18/2016) + +-------+ + + + | Component | Value | Ref Range | Performed | Pathologist | | | | | At | Signature | + +-------+ + + + | Bilirubin, | 0.6 | 0 - 1.2 | EXTERNAL | | | Total, | | | LAB | | | External | | | | | + +-------+ + + + + + | Resulting Agency Comment | + + | [facility] | + + + +---------+ + + | Performing | Address | City/State/Zipcode | Phone Number | | Organization | | | | + +---------+ + + | EXTERNAL LAB | | | | + +---------+ + + External Lab: Albumin (09/18/2016) + +-------+ + + + | Component | Value | Ref Range | Performed | Pathologist | | | | | At | Signature | + +-------+ + + + | Albumin, | 4.4 | 3.5 - 5 | EXTERNAL | | | External | | | LAB | | + +-------+ + + + + + | Resulting Agency Comment | + + | [facility] | + + + +---------+ + + | Performing | Address | City/State/Zipcode | Phone Number | | Organization | | | | + +---------+ + + | EXTERNAL LAB | | | | + +---------+ + + External Lab: Protein, Total (09/18/2016) + +---------+ + + + | Component | Value | Ref Range | Performed | Pathologist | | | | | At | Signature | + +---------+ + + + | Protein, | 8.4 (A) | 6 - 8 | EXTERNAL | | | Total, | | | LAB | | | External | | | | | + +---------+ + + + + + | Resulting Agency Comment | + + | [facility] | + + + +---------+ + + | Performing | Address | City/State/Zipcode | Phone Number | | Organization | | | | + +---------+ + + | EXTERNAL LAB | | | | + +---------+ + + External Lab: Calcium (09/18/2016) + +-------+ + + + | Component | Value | Ref Range | Performed | Pathologist | | | | | At | Signature | + +-------+ + + + | Calcium, | 9.8 | 8.4 - 10.2 | EXTERNAL | | | External | | | LAB | | + +-------+ + + + + + | Resulting Agency Comment | + + | [facility] | + + + +---------+ + + | Performing | Address | City/State/Zipcode | Phone Number | | Organization | | | | + +---------+ + + | EXTERNAL LAB | | | | + +---------+ + + External Lab: Carbon Dioxide (09/18/2016) + +-------+ + + + | Component | Value | Ref Range | Performed | Pathologist | | | | | At | Signature | + +-------+ + + + | Carbon | 27 | 19 - 31 | EXTERNAL | | | Dioxide, | | | LAB | | | External | | | | | + +-------+ + + + + + | Resulting Agency Comment | + + | [facility] | + + + +---------+ + + | Performing | Address | City/State/Zipcode | Phone Number | | Organization | | | | + +---------+ + + | EXTERNAL LAB | | | | + +---------+ + + External Lab: Chloride (09/18/2016) + +-------+ + + + | Component | Value | Ref Range | Performed | Pathologist | | | | | At | Signature | + +-------+ + + + | Chloride, | 97 | 95 - 112 | EXTERNAL | | | External | | | LAB | | + +-------+ + + + + + | Resulting Agency Comment | + + | [facility] | + + + +---------+ + + | Performing | Address | City/State/Zipcode | Phone Number | | Organization | | | | + +---------+ + + | EXTERNAL LAB | | | | + +---------+ + + External Lab: Potassium (09/18/2016) + +-------+ + + + | Component | Value | Ref Range | Performed | Pathologist | | | | | At | Signature | + +-------+ + + + | Potassium, | 4.3 | 3.6 - 5.1 | EXTERNAL | | | External | | | LAB | | + +-------+ + + + + + | Resulting Agency Comment | + + | [facility] | + + + +---------+ + + | Performing | Address | City/State/Zipcode | Phone Number | | Organization | | | | + +---------+ + + | EXTERNAL LAB | | | | + +---------+ + + External Lab: Sodium (09/18/2016) + +-------+ + + + | Component | Value | Ref Range | Performed | Pathologist | | | | | At | Signature | + +-------+ + + + | Sodium, | 133 | 132 - 143 | EXTERNAL | | | External | | | LAB | | + +-------+ + + + + + | Resulting Agency Comment | + + | [facility] | + + + +---------+ + + | Performing | Address | City/State/Zipcode | Phone Number | | Organization | | | | + +---------+ + + | EXTERNAL LAB | | | | + +---------+ + + External Lab: B Type Naturetic Peptide (09/18/2016) + +-------+ + + + | Component | Value | Ref Range | Performed | Pathologist | | | | | At | Signature | + +-------+ + + + | B-Type | 63 | 0 - 100 | EXTERNAL | | | Naturetic | | | LAB | | | Peptide, | | | | | | External | | | | | + +-------+ + + + + + | Specimen | + + | Blood specimen | | (specimen) | + + + + | Resulting Agency Comment | + + | [facility] | + + + +---------+ + + | Performing | Address | City/State/Zipcode | Phone Number | | Organization | | | | + +---------+ + + | EXTERNAL LAB | | | | + +---------+ + + External Lab: eGFR (09/18/2016) + +-------+ + + + | Component | Value | Ref Range | Performed | Pathologist | | | | | At | Signature | + +-------+ + + + | eGFR, | 86 | | EXTERNAL | | | External | | | LAB | | + +-------+ + + + + + | Specimen | + + | Blood specimen | | (specimen) | + + + + | Resulting Agency Comment | + + | [facility] | + + + +---------+ + + | Performing | Address | City/State/Zipcode | Phone Number | | Organization | | | | + +---------+ + + | EXTERNAL LAB | | | | + +---------+ + + External Lab: Creatinine (09/18/2016) + + + + + + | Component | Value | Ref Range | Performed | Pathologist | | | | | At | Signature | + + + + + + | Creatinine, | 0.66 (A) | 0.7 - 1.18 | EXTERNAL | | | External | | | LAB | | + + + + + + + + | Specimen | + + | Blood specimen | | (specimen) | + + + + | Resulting Agency Comment | + + | [facility] | + + + +---------+ + + | Performing | Address | City/State/Zipcode | Phone Number | | Organization | | | | + +---------+ + + | EXTERNAL LAB | | | | + +---------+ + + documented in this encounter Visit Diagnoses Not on filedocumented in this encounter"
--- OUTSIDE RECORDS SUMMARY | ~2019-04-12 | XMS | Encounter Summary ---
Demographics + + + | Address | [address] | | | [place] [address] | + + + | Home Phone | | + + + | Preferred Language | Unknown | + + + | Marital Status | | + + + | Confucianist Affiliation | Unknown | + + + | Race | Unknown | + + + | Ethnic Group | Unknown | + + + Author + + + | Author | [facility] | | | and [place] | + + + | Organization | [facility] | | | [...] | | | | | [place] [address] | | + + + + + | Hunter Jackson | ECON | [place] | | + + + + + | Wes Jackson | ECON | [place], [place] | | + + + + + | Oziel Jackson | ECON | [place], [place] | | + + + + + Care Team Providers + +------+ + | Care Setter Up Name | Role | Phone | + +------+ + PCP | Unavailable | + +------+ + Encounter Details +--------+ + + + + | Date | Type | Department | Care Team | Description | +--------+ + + + + | 10/24/ | [facility] | [facility] | Rodolfo Cruz, | | | 2009 | Encounter | MED CTR XRAY [address] | [address] | | | | | [place] | [place], [place] | | | | | [place], [place] [address] | [address] | | | | | [phone] | | | +--------+ + + + [...] | | | | | | [place] [address] | | | | | | [phone] | | | | | | | | +--------+---------+ + + + documented as of this encounter Visit Diagnoses Not on filedocumented in this encounter"
--- OUTSIDE RECORDS SUMMARY | ~2019-04-12 | XMS | Encounter Summary ---
Demographics + + + | Address | [address] | | | [place] [address] | + + + | Home Phone | | + + + | Preferred Language | Unknown | + + + | Marital Status | | + + + | Muslim Affiliation | Unknown | + + + | Race | Unknown | + + + | Ethnic Group | Unknown | + + + Author + + + | Author | [facility] | | | and [place] | + + + | Organization | [facility] | | | and [...] | | | | | [place] [address] | | + + + + + | Hunter Jackson | ECON | [place] | | + + + + + | Wes Jackson | ECON | [place], [place] | | + + + + + | Oziel Jackson | ECON | [place], [place] | | + + + + + Care Team Providers + +------+ + | Care Managed Care Provider Name | Role | Phone | + +------+ + | Rodolfo Cruz MD | PCP | | + +------+ + Encounter Details +--------+ + + + + | Date | Type | Department | Care Team | Description | +--------+ + + + + | 12/24/ | Hospital | [facility] | Rodolfo Cruz, | Right foot pain | | 2013 | Encounter | MED CTR DIONE XRAY | [place] [address] | | | | | [address] [place] | [place], [place] | | | | | [place] | [address] | | | | | [address] | | | | | | [phone] | | | +--------+ + + + [...] 71.5-119 mg by | | 0 | 09/13/20 | | | carbonate (SLOW-MAG) | mouth [...] + +---------+ + + | diclofenac | 1 gram bid prn | 1 Tube | 0 | 12/09/19 | | | (VOLTAREN) 1% | | | | 14 | 4 | | GELIndications: OA | | | | | | | (osteoarthritis) | | | | | | + [...] tablet by | 30 | 0 | 12/25/19 | | | HYDROcodone-acetamin | mouth every [...] | | | | | | [place], [place] | | | | | | [address] | | | | | | | | +--------+---------+ + + + | 11/21/ | Office | Cardiology | Yesi, | | | 2019 | Visit | | JOSE ALBERTO Linder [address] | | | | | | [place], | | | | | | [place] [address] | | | | | | [phone] | | | | | | | | +--------+---------+ + + + documented as of this encounter Procedures + +--------+ + + + | Procedure Name | Priori | Date/Time | Associated Diagnosis | Comments | | | ty | | | | + +--------+ + + + | XR FOOT RIGHT 3 + VW | Routin | 12/24/2013 | Right foot pain | Results for this | | | e | 11:32 AM | | procedure are in the | | | | PDT | | results section. | + +--------+ + + + documented in this encounter Results XR Foot Right 3 + Vw (12/24/2013 11:32 AM PDT) + + | Specimen | + + | | + + + + + | Narrative | Performed At | + + + | EXAM: XR FOOT RIGHT 3 + VW dated 12/24/2013 11:10 AM HISTORY:heel | MISCELANIOUS | | pain COMPARISON: None. FINDINGS: 3 nonweightbearing views of | LAB | | the right foot. Hallux valgus and metatarsus primus varus. Mild | | | degenerative changes at the great toe metatarsal phalangeal joint. | | | Mild demineralization. Multiple hammertoe deformities. No acute | | | osseous abnormalities. There is a small plantar calcaneal spur. | | | The soft tissues are unremarkable. There are no radio opaque | | | foreign bodies. IMPRESSION - Hallux valgus and metatarsus | | | primus varus. Degenerative changes. Dictated and Signed by: | | | Lauri Collins MD Electronically signed: 12/24/2013 1:00 PM | | + + + + + | Procedure Note | + + | Zoltan Macedo Results In - 12/24/2013 1:03 PM PDT EXAM: XR FOOT RIGHT 3 + VW dated | | 12/24/2013 11:10 AMHISTORY:heel painCOMPARISON: None.FINDINGS: 3 nonweightbearing views | | of the right foot. Hallux valgus andmetatarsus primus varus. Mild degenerative changes | | at the great toe metatarsalphalangeal joint. Mild demineralization. Multiple | | hammertoe deformities. Noacute osseous abnormalities. There is a small plantar | | calcaneal spur. The softtissues are unremarkable. There are no radio opaque foreign | | bodies.IMPRESSION -Hallux valgus and metatarsus primus varus. Degenerative | | changes.Dictated and Signed by: Lauri Collins MD Electronically signed: 12/24/2013 | | 1:00 PM | |acute osseous abnormalities. There is a small plantar calcaneal spur. The soft | |tissues are unremarkable. There are no radio opaque foreign bodies. | | | |IMPRESSION - | | | |Hallux valgus and metatarsus primus varus. | | | |Degenerative changes. | | | |Dictated and Signed by: Lauri Collins MD | | Electronically signed: 12/24/2013 1:00 PM | + + + +---------+ + + | Performing | Address | City/State/Zipcode | Phone Number | | Organization | | | | + +---------+ + + | MISCELLANEOUS LAB | | | [phone] | + +---------+ + + | MISCELANIOUS LAB | | | [phone] | + +---------+ + + documented in this encounter Visit Diagnoses + + | Diagnosis | + + | Right foot pain Pain in limb | + + documented in this encounter"
--- OUTSIDE RECORDS SUMMARY | ~2019-04-12 | XMS | Encounter Summary ---
Demographics + + + | Address | [address] | | | [place] [address] | + + + | Home Phone | | + + + | Preferred Language | Unknown | + + + | Marital Status | | + + + | Jewish Affiliation | Unknown | + + + | Race | Unknown | + + + | Ethnic Group | Unknown | + + + Author + + + | Author | [facility] | | | and [place] | + + + | Organization | [facility] | | | and [...] | | | | | [place] [address] | | + + + + + | Hunter Jackson | ECON | [place] | | + + + + + | Wes Jackson | ECON | [place], [place] | | + + + + + | Oziel Jackson | ECON | [place], [place] | | + + + + + Care Team Providers + +------+ + | Care Freight Traffic Consultant Name | Role | Phone | [...] Description | +--------+--------+ + + + | 01/12/ | Refill | [facility] | Rodolfo Cruz, | Medication Refill | | 2013 | | [facility] | [address] | | | | | [address] | [place] | | | | | [place] | [address] | | | | | [address] | | | | | | [phone] | | | +--------+--------+ + + + [...] | | | | | | [place] [address] | | | | | | [phone] | | | | | | | | +--------+---------+ + + + documented as of this encounter Visit Diagnoses Not on filedocumented in this encounter"
--- OUTSIDE RECORDS SUMMARY | ~2019-04-12 | XMS | Encounter Summary ---
Demographics + + + | Address | [address] | | | [place] [address] | + + + | Home Phone [...] | Located Within [facility] | | | and [place] | + + + | Organization | Located [facility] [...] | | | | | [place] [address] | | + + + + + | Hunter Jackson | ECON | [place] | | + + + + + | Wes Jackson | ECON | [place], [place] | | + + + + + | Oziel Jackson | ECON | [place], [place] | | + + + + + Care Team Providers + +------+ + | Care Ribbon Lap Machine Tender Name | Role | Phone | + +------+ + PCP | Unavailable | + +------+ + Encounter Details +--------+ + + + + | Date | Type | Department | Care Team | Description | +--------+ + + + + | 10/24/ | [facility] | [facility] | Rodolfo Cruz, | | | 2009 | Encounter | [facility] [address] | [address] | | | | | [place] | [place], [place] | | | | | [place], [place] [address] | [address] | | | | | [phone] | | | +--------+ + + + [...] | | | | | | [place] [address] | | | | | | [phone] | | | | | | | | +--------+---------+ + + + documented as of this encounter Visit Diagnoses Not on filedocumented in this encounter"
--- OUTSIDE RECORDS SUMMARY | ~2019-04-12 | XMS | Encounter Summary ---
Demographics + + + | Address | [address] | | | [place] [address] | + + + | Home Phone [...] | Author | [facility] | | | and [place] | + + + | Organization | [facility] | | | and [...] | | | | | [place] [address] | | + + + + + | Hunter Jackson | ECON | [place] | | + + + + + | Wes Jackson | ECON | [place], [place] | | + + + + + | Oziel Jackson | ECON | [place], [place] | | + + + + + Care Team Providers + +------+ + | Care Manager Online Name | Role | Phone | + +------+ + | Rodolfo Cruz MD | PCP | | + +------+ + Reason for Visit + + + | Reason | Comments | + + + | Back Pain | | + + + Auth/Cert +--------+--------+ + + + + | Status | Reason | Specialty | Diagnoses / | Referred By | Referred To | | | | | Procedures | Contact | Contact | +--------+--------+ + + + + | Closed | | | Diagnoses | | [facility] | | | | | Back pain | | [address] | | | | | Hypothyroidi | | [place], | | | | | sm | | [place] | | | | | Hypertension | | [address] | | | | | Asthma GI | | Phone: | | | | | bleed | | [phone] | | | | | Troponin | | Fax: | | | | | level | | [phone] | | | | | elevated | | | | | | | Anemia due | | | | | | | to blood | | | | | | | loss, acute | | | | | | | Thoracic | | | | | | | sprain and | | | | | | | strain, | | | | | | | subsequent | | | | | | | encounter | | | | | | | GI bleed | | | | | | | | | | | | | | GI bleed | | | | | | | [578.9] | | | | | | | Procedures | | | | | | | EGD | | | +--------+--------+ + + + + Encounter Details +--------+---------+ + + + | Date | Type | Department | Care Team | Description | +--------+---------+ + + + | 11/04/ | Surgery | [facility] | Samm Pandya, | EGD IP 449 | | 2013 | | MED CTR MP INTRA OP | MD [address] | | | | | [address] | [address], | | | | | [place] | [place] [address] | | | | | [address] | [phone] | | | | | [phone] | | | +--------+---------+ + + + [...] + + + | Blood Pressure | 137/64 | 11/05/2013 4:00 PM | | | | | PDT | | + + + + + | Pulse | 66 | 11/05/2013 4:00 PM | | | | | PDT | | + + + + + | Temperature | 37.2 C (99 F) | 11/05/2013 4:00 PM | | | | | PDT | | + + + + + | Respiratory Rate | 16 | 11/05/2013 4:00 PM | | | | | PDT | | + + + + + | Oxygen Saturation | 96% | 11/05/2013 4:00 PM | | | | | PDT | | + + + + + | Inhaled Oxygen | - | - | | | Concentration | | | | + + + + + | Weight | 91.6 kg (202 lb) | 11/03/2013 7:45 AM | | | | | PDT | | + + + + + | Height | 167.6 cm (5' 6") | 11/03/2013 7:45 AM | | | | | PDT | | + + + + + | Body Mass Index | 32.6 | 11/03/2013 7:45 AM | | | | | PDT | | + + + + + documented in this encounter Discharge Summaries Yoel Carranza MD - 11/05/2013 1:26 PM PDTFormatting of this note might be different fro m the original. [facility] DISCHARGE SUMMARY Pt. Name/Age/: Soumya Jackson 78 y.o. 1935 Date of Admission: 11/03/2013 Date of Discharge: 11/05/2013 Admitting Physician: Yoel Carranza MD Primary Care Provider: Rodolfo Cruz Discharging Physician: Yoel Carranza MD DISCHARGE DIAGNOSES: Active Hospital Problems Diagnosis GI bleed Hypertension GERD Anemia due to blood loss, acute Troponin I above reference range Lytic lesion of bone on x-ray DJD (degenerative joint disease) Hypothyroidism Lacunar infarction (HCC) Valvular heart disease Resolved Hospital Problems Diagnosis No resolved problems to display. 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 [DISCONTINUED] [facility] GARLIC OIL PO CAPS Take 1250 mg by mouth daily. [DISCONTINUED] diclofenac (VOLTAREN) 75 mg EC tablet TAKE ONE TABLET BY MOUTH TWICE A D AY 180 tablet 1 [DISCONTINUED] Rcuwocoqpbz-Aiseyjfcy-Bwg C-Mn ([facility] GLUCOSAMINE-CHONDROITIN) TABS Take 1 tablet by mouth 2 times daily. [DISCONTINUED] KRILL OIL 1000 MG CAPS Take 1,000 mg by mouth Daily. [DISCONTINUED] metaxalone (SKELAXIN) 800 mg tablet Take 800 mg by mouth 3 times daily. Unchanged ART DEALER meds that are or will be resumed Medication Sig Dispense Refill albuterol (VENTOLIN HFA) 90 mcg/puff inhaler 2 puff po q 4 hours prn 1 Inhaler 0 amLODIPine (NORVASC) 5 mg tablet Take 1 tablet by mouth Daily. 90 tablet 1 Calcium Citrate-Vitamin D (CITRACAL MAXIMUM PO) TABS Take one by mouth three times rafia y. Cholecalciferol (D-5000 PO) Take 5,000 Units by mouth Daily. diphenhydrAMINE (BENADRYL) 25 MG capsule Take 25 mg by mouth as needed. fenofibrate (TRICOR) 48 mg tablet Take 1 tablet by mouth Daily. 90 tablet 1 furosemide (LASIX) 20 mg tablet 20 mg. 1 tab daily PRN, edema or hypertension HYDROcodone-acetaminophen (NORCO) 7.5-325 mg per tablet Take 1 tablet by mouth every 6 hours as needed for Pain for up to 10 days. 40 tablet 0 L-Lysine HCl 500 MG CAPS Take 500 mg by mouth Daily. levothyroxine (SYNTHROID) 125 mcg tablet Take 1 tablet by mouth every morning (before b reakfast). 90 tablet 1 magnesium-calcium carbonate (SLOW-MAG) 71.5-119 MG TBEC Take 71.5-119 mg by mouth Daily . Melatonin (MELATONIN MAXIMUM STRENGTH) 5 MG TABS Take 5 mg by mouth Daily as needed. metoprolol succinate (TOPROL XL) 50 mg 24 hr tablet Taking 1/2 tab daily 45 tablet 1 Multiple Vitamins-Minerals (OCUVITE ADULT 50+) CAPS Take by mouth Daily. ondansetron (ZOFRAN ODT) 4 mg disintegrating tablet Take 4 mg by mouth every 8 hours as needed. polyethylene glycol (MIRALAX) packet Take 17 g by mouth Daily as needed. Took it once o n the vitamin B-12 (CYANOCOBALAMIN) 1000 MCG tablet Take 1,000 mcg by mouth Daily. New prescriptions Medication Sig Dispense Refill aspirin (ASPIRIN ADULT LOW STRENGTH) 81 mg chewable tablet 81 mg aspirin daily does not need prescription 1 tablet 0 omeprazole (PRILOSEC) 20 mg capsule Take 20 mg twice a day, this is over the counter an d does not need a prescription 1 capsule 0 HOSPITAL COURSE: Please refer to the H&P for full details and the most recent rounding rounding (progress) n ote. Active Hospital Problems Diagnosis GI bleed She also had black Hemoccult-positive stool in the emergency room in addition to reports of black stool 2 nights ago. Has been taking Voltaren for quite some time. Also on daily asp irin. I spoke with Dr. Pandya who will consult and probably due on endoscopy . November 04 had 3 PRBC so far and I ordered 4th this morning November 05 OK for home Hypertension Did empirically cut back on medication here given her anemia when in [facility] GERD By history Anemia due to blood loss, acute From GI bleeding. Got total 4 PRBC Troponin I above reference range EKG without ischemia. Mild troponin leak but well below threshold for KS. Echo EF 63%, no sig change versus 2010 Echo Discussed with patient to have Dr Cruz set up for stress testing (certainly prior to any major surgery) Lytic lesion of bone on x-ray Serum protein electrophoresis ordered. She is going to have a bone scan in the outpatient setting. 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 Has been on daily aspirin. OK to restart baby ASA Valvular heart disease NOT significant Echo this admit mild AI, mild MR, mild TR Plan Home today Dr Cruz Friday, he can call me then I would advise CT with contrast Chest Abd Pelvis and Mamogram and UPEP and Stress Test with calender roll press operator OK to restart baby ASA NOT restart Voltaren Advise appt with Merissa in GI clinic in about 1 month. Most recent weight: Input and output for last 24hrs: Wt Readings from Last 1 Encounters: 11/03/13 91.627 kg (202 lb) I/O last 24 Hours: In: 1885 [P.O.:900; I.V.:738; Blood:247] Out: 3300 [Urine:3300] Vitals Ranges: Temp: [36.5 C (97.7 F)-37 C (98.6 F)] 37 C (98.6 F) Pulse: [54-62] 54 Resp: [16-20] 20 BP: (135-174)/(63-69) 152/69 mmHg Vitals: Temp: 37 C (98.6 F) BP: 152/69 mmHg Pulse: 54 Resp: 20 SpO2: 99 % SpO2 99 % on room air at flow rate L/min PHYSICAL EXAM: Patient seen and examined by me on discharge day PROCEDURES AND CONSULTS: Procedures Bone Scan, EGD, PRBC X 4, Echo Consults Dr Pandya PENDING RESULTS: DISPOSITION AND DISCHARGE INSTRUCTIONS: Follow-up Information Follow up with oRdolfo Cruz MD. (Keep your friday appt) Contact information: [address] [facility] [phone] Follow up with JOSE ALBERTO Marcelo. (Have Dr Cruz arrange an appt to see her in about a month from now) Contact information: [place] [phone] Condition: Patient being discharged with condition improved Dr Pandya recommends double dose of PPI for 1 month then single dose Thus Prilosec 20 mg bid X 1 month then can lower to 20 mg daily Diet: Regular Greater than 30 minutes were spent on discharge and coordination of post-hospital care. Electronically signed by: Yoel Carranza MD, 11/05/2013 13:26 [facility] Portions of this chart may have been created with [employer] voice recognition software. Occasi onal wrong-word or sound-alike substitutions may have occurred due to the inherent doe itations of voice recognition software. Please read the chart carefully and recognize, using context, where these substitutions have occurred documented in this en counter Discharge Instructions Instructions Yoel Carranza MD - 11/05/[address] Cruz on Friday If you believe recurrence of bleeding from ulcer then go to ER documented in this encounter Medications at Time [...] + + +---------+ + + | aspirin (ASPIRIN | 81 mg aspirin daily | 1 | 0 | 11/06/19 | | | ADULT LOW STRENGTH) | does not need | tablet | | 14 | 4 | | 81 mg chewable | prescription | | | | | | tablet [...] | | Take 1 tablet by | 40 | 0 | 10/29/19 | | | HYDROcodone-acetamin | mouth every 6 hours | tablet | | 14 | 4 | | ophen (NORCO) | as needed for Pain | | | | | | 7.5-325 mg per | for up to 10 days. | | | | | | tabletIndications: | | | | | | | Thoracic sprain and | | | | | | | strain, subsequent | | | | | | | encounter | | | | | | + [...] documented as of this encounter Progress Notes Yoel Carranza MD - 11/05/2013 1:13 PM PDTFormatting of this note might be different fro m the original. [facility] PROGRESS NOTE Patient: Soumya Jackson : 1935: Age: 78 y.o. MedRec: [id number] Admission date: 11/03/2013 Hospital day # : 2 Physician author: Yoel Carranza MD Today: 11/05/2013 Allergies: Allergies Allergen Reactions Actonel Patient not remember Celecoxib Patient not remember Fosamax Patient not remember Penicillins Caused "black diarrhea" when she had her 4th child. Current Medications: Current Facility-Administered Medications Medication Dose Route Frequency Provider Last Rate Last Dose albuterol (VENTOLIN HFA) 90 mcg/puff inhaler 2 puff 2 puff Inhalation RT Q4H PRN Wayne Carranza MD amLODIPine (NORVASC) tablet 5 mg 5 mg Oral Daily Yoel Carranza MD 5 mg at 11/05/13 0844 diphenhydrAMINE (BENADRYL) capsule 25 mg 25 mg Oral Nightly PRN Yoel Carranza MD HYDROcodone-acetaminophen (NORCO) 7.5-325 mg per tablet 1 tablet 1 tablet Oral Q6H PRN Yoel Carranza MD 1 tablet at 11/04/13 1807 HYDROmorphone (DILAUDID) injection 0.4-0.8 mg 0.4-0.8 mg Intravenous Q2H PRN Yoel Carranza MD 0.5 mg at 11/03/13 1743 levothyroxine (SYNTHROID, LEVOTHROID) tablet 125 mcg 125 mcg Oral QAM AC Yoel bill MD 125 mcg at 11/05/13 0705 metoprolol succinate (TOPROL-XL) ER tablet 25 mg 25 mg Oral Daily Yoel Carranza MD 25 mg at 11/05/13 0844 naloxone (NARCAN) 0.4 mg/mL injection 0.04 mg 0.04 mg Intravenous PRN Samm Pandya MD ondansetron (ZOFRAN) injection 4 mg 4 mg Intravenous Q6H PRN Yoel Carranza MD pantoprazole (PROTONIX) injection 40 mg 40 mg Intravenous BID Yoel Carranza MD 40 mg at 11/05/13 0844 polyethylene glycol (MIRALAX) powder 17 g 17 g Oral Daily PRN Yoel Carranza MD [COMPLETED] technetium TC-99M medronate (MDP) injection 25 millicurie 25 millicurie In travenous Once PRN Yoel Carranza MD 25 millicurie at 11/05/13 0759 Current Infusions: Objective Data Labs Lab 11/05/13 0700 11/04/13 1315 11/04/13 0658 11/04/13 0429 WBC 9.8 12.7* 10.2 -- HGB 11.1* 10.5* 9.1* -- HCT 31.7* 31.4* 25.8* -- PLT 406 374 324 -- NEUPCT 68.5 -- -- 66.0 MONPCT 7.3 -- -- 7.6 Lab 11/03/13 1315 PROTIME 13.0 INR 0.99 No results found for this basename: PTT:3 in the last 168 hours Lab 11/05/13 0638 11/04/13 0429 11/03/13 1137 11/03/13 0817 GLU 93 121* -- 124* NA 139 140 -- 134* K 3.7 3.7 -- 3.8 CL 106 109 -- 101 CO2 23* 21* -- 22* ANIONGAP 10 10 -- 11 BUN 6* 3* -- 11 CREA 0.64 0.59* -- 0.66 GFRNONAA >60 >60 -- >60 CALCIUM 8.7 8.2* -- 8.6 ALBUMIN -- -- -- -- TOTALPROTEIN -- -- 5.9* -- BILITOT -- -- -- -- ALKPHOS -- -- -- -- ALT -- -- -- -- AST -- -- -- -- No results found for this basename: BNP:3 in the last 168 hours Lab 11/04/13 0429 MG 2.0 No results found for this basename: PHOS:3 in the last 168 hours No results found for this basename: AMYLASE:3,LIPASE:3 in the last 168 hours No results found for this basename: AMMONIA:3 in the last 168 hours Lab 11/04/13 0103 11/03/13 1717 11/03/13 1315 11/03/13 0817 TROPONINI 0.12* 0.09* 0.07* 0.08* CK -- -- -- -- CKMB -- -- -- -- No results found for this basename: PHART:3,PO2ART:3,PAJ2OXV:3,ZJO2LJW:3,BEART:3,C8PTZWCN:3 in the last 168 hours No results found for this basename: SPECSOURCE:3,PHPOCB:3,YLBHY3SK:3,THAV3KN:3,HCO3:3,TCO2: 3,BEART:3,BE:3,RGFU1GOW:3 in the last 168 hours Point of care glucose: No results found for this basename: POCGLU:6 in the last 168 hours Serial weights: Filed Weights: 11/03/13 0745 Weight: 91.627 kg (202 lb) Most recent weight: Input and output for last 24hrs: Wt Readings from Last 1 Encounters: 11/03/13 91.627 kg (202 lb) I/O last 24 Hours: In: 1885 [P.O.:900; I.V.:738; Blood:247] Out: 3300 [Urine:3300] I/O last 3 completed shifts: In: 3831 [P.O.:900; I.V.:2023; Blood:907] Out: 5600 [Urine:5600] Vitals Ranges: Temp: [36.5 C (97.7 F)-37 C (98.6 F)] 37 C (98.6 F) Pulse: [54-62] 54 Resp: [16-20] 20 BP: (135-174)/(63-69) 152/69 mmHg Vitals: Temp: 37 C (98.6 F) BP: 152/69 mmHg Pulse: 54 Resp: 20 SpO2: 99 % SpO2 99 % on room air at flow rate L/min Subjective Discussed results and meds and going home and sees Dr Cruz on Friday (I texted him to ca lll me) ROS See above Exam General alert, NAD mood and affect quiet speech fluent Eye anicteric Cardiac RRR soft systolic murmur Extremities no significant edema Lung clear to auscultation effort not labored Assessment and Hospital Course Active Hospital Problems Diagnosis GI bleed She also had black Hemoccult-positive stool in the emergency room in addition to reports of black stool 2 nights ago. Has been taking Voltaren for quite some time. Also on daily asp irin. I spoke with Dr. Pandya who will consult and probably due on endoscopy . November 04 had 3 PRBC so far and I ordered 4th this morning November 05 OK for home Hypertension Did empirically cut back on medication here given her anemia GERD By history Anemia due to blood loss, acute From GI bleeding. Got total 4 PRBC Troponin I above reference range EKG without ischemia. Mild troponin leak but well below threshold for KS. Echo EF 63%, no sig change versus 2011 Echo Discussed with patient to have Dr Cruz set up for stress testing (certainly prior to any major surgery) Lytic lesion of bone on x-ray Serum protein electrophoresis ordered. She is going to have a bone scan in the outpatient setting. 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 Has been on daily aspirin. OK to restart baby ASA Valvular heart disease NOT significant Echo this admit mild AI, mild MR, mild TR Plan Home today Dr Cruz Friday, he can call me then I would advise CT with contrast Chest Abd Pelvis and Mamogram and UPEP and Stress Test with calender roll press operator OK to restart baby ASA NOT restart Voltaren Advise appt with Merissa in GI clinic in about 1 month. Yoel Carranza MD 11/05/2013 13:[address] [facility] Dot phrase reference: VSHOSP (VS in table, last 24 hours) MEYLAB (various labs to pull in) DT (date and time) LABRCNTIP[K:3,Na:3 (last 3 sets of labs using potassium and sodium as examples) HGB HCT PLT INR GLU POCGLU Na K BUN CREA, CALCIUM TROPONINI BNP DIGOXIN DDIMERQUANT Portions of this chart may have been created with [employer] voice recognition software. Occasi onal wrong-word or sound-alike substitutions may have occurred due to the inherent doe itations of voice recognition software. Please read the chart carefully and recognize, using context, where these substitutions have occurred Car Yousif RN - 11/04/2013 1:18 PM JONO done. "Hietal Hernia and duodenal ulcer" per report. Pt awake an d alert. 1 unit of PRBC transfused without reaction. [place] 1 tab given for lower back pain w ith good relief of pain. No active bleeding noted. Rodolfo Nicholas RRT - 11/04/2013 9:15 AM PDTPt not in roomEle ctronically signed by Rodolfo Montes RRT at 11/04/2013 2:44 PM Yoel Plaza MD - 7:17 AM PDT [facility] PROGRESS NOTE Patient: Soumya Jackson : 1935: Age: 78 y.o. MedRec: [id number] Admission date: 11/03/2013 Hospital day # : 1 Physician author: Yoel Carranza MD Today: 11/04/2013 Allergies: Allergies Allergen Reactions Actonel Patient not remember Celecoxib Patient not remember Fosamax Patient not remember Penicillins Caused "black diarrhea" when she had her 4th child. Current Medications: Current Facility-Administered Medications Medication Dose Route Frequency Provider Last Rate Last Dose albuterol (VENTOLIN HFA) 90 mcg/puff inhaler 2 puff 2 puff Inhalation RT Q4H PRN Wayne Carranza MD amLODIPine (NORVASC) tablet 5 mg 5 mg Oral Daily Yoel Carranza MD dextrose 5% and sodium chloride 0.9% with KCl 20 mEq/L (D5 NS + KCL 20) infusion Intr avenous Continuous Yoel Carranza MD 100 mL/hr at 11/04/13 0500 diphenhydrAMINE (BENADRYL) capsule 25 mg 25 mg Oral Nightly PRN Yoel Carranza MD HYDROcodone-acetaminophen (NORCO) 7.5-325 mg per tablet 1 tablet 1 tablet Oral Q6H PRN Yoel Carranza MD 1 tablet at 11/04/13 0518 HYDROmorphone (DILAUDID) injection 0.4-0.8 mg 0.4-0.8 mg Intravenous Q2H PRN Yoel Carranza MD 0.5 mg at 11/03/13 1743 levothyroxine (SYNTHROID, LEVOTHROID) tablet 125 mcg 125 mcg Oral QAM AC Yoel bill MD 125 mcg at 11/03/13 1413 metoprolol succinate (TOPROL-XL) ER tablet 25 mg 25 mg Oral Daily Yoel Carranza MD 25 mg at 11/03/13 1414 [COMPLETED] ondansetron (ZOFRAN) injection 4 mg 4 mg Intravenous Once Stanislav Michele MD 4 mg at 11/03/13 0823 ondansetron (ZOFRAN) injection 4 mg 4 mg Intravenous Q6H PRN Yoel Carranza MD pantoprazole (PROTONIX) 0.8 mg/mL in sodium chloride 0.9% 100 mL infusion 8 mg/hr Intr avenous Continuous Stanislav Michele MD 10 mL/hr at 11/04/13 0500 8 mg/hr at 11/04/13 0500 [COMPLETED] pantoprazole (PROTONIX) injection 80 mg 80 mg Intravenous Once Stanislav antonio MD 80 mg at 11/03/13 0848 polyethylene glycol (MIRALAX) powder 17 g 17 g Oral Daily PRN Yoel Carranza MD [COMPLETED] sodium chloride 0.9% bolus 1,000 mL 1,000 mL Intravenous Once Stanislav isaac MD 1,000 mL at 11/03/13 0830 Current Infusions: dextrose 5% and sodium chloride 0.9% with KCl 20 mEq/L 100 mL/hr at 11/04/13 0500 pantoprazole (PROTONIX) infusion 8 mg/hr (11/04/13 0500) Objective Data Labs Lab 11/04/13 0658 11/04/13 0429 11/04/13 0103 WBC 10.2 10.3 11.6* HGB 9.1* 8.6* 8.3* HCT 25.8* 25.1* 24.8* PLT 324 324 321 NEUPCT -- 66.0 -- MONPCT -- 7.6 -- Lab 11/03/13 1315 PROTIME 13.0 INR 0.99 No results found for this basename: PTT:3 in the last 168 hours Lab 11/04/13 0429 11/03/13 0817 GLU 121* 124* NA 140 134* K 3.7 3.8 CL 109 101 CO2 21* 22* ANIONGAP 10 11 BUN 3* 11 CREA 0.59* 0.66 GFRNONAA >60 >60 CALCIUM 8.2* 8.6 ALBUMIN -- -- TOTALPROTEIN -- -- BILITOT -- -- ALKPHOS -- -- ALT -- -- AST -- -- No results found for this basename: BNP:3 in the last 168 hours Lab 11/04/13 0429 MG 2.0 No results found for this basename: PHOS:3 in the last 168 hours No results found for this basename: AMYLASE:3,LIPASE:3 in the last 168 hours No results found for this basename: AMMONIA:3 in the last 168 hours Lab 11/04/13 0103 11/03/13 1717 11/03/13 1315 11/03/13 0817 TROPONINI 0.12* 0.09* 0.07* 0.08* CK -- -- -- -- CKMB -- -- -- -- No results found for this basename: PHART:3,PO2ART:3,NDJ5DNU:3,TLV4RVU:3,BEART:3,M4DPMFYV:3 in the last 168 hours No results found for this basename: SPECSOURCE:3,PHPOCB:3,UJXPG8KT:3,JEWD6US:3,HCO3:3,TCO2: 3,BEART:3,BE:3,JDMT7TLE:3 in the last 168 hours Point of care glucose: No results found for this basename: POCGLU:6 in the last 168 hours Serial weights: Filed Weights: 11/03/13 0745 Weight: 91.627 kg (202 lb) Most recent weight: Input and output for last 24hrs: Wt Readings from Last 1 Encounters: 11/03/13 91.627 kg (202 lb) I/O last 24 Hours: In: 3258 [P.O.:360; I.V.:1679; Blood:1219] Out: 3200 [Urine:3200] I/O last 3 completed shifts: In: 3258 [P.O.:360; I.V.:1679; Blood:1219] Out: 3200 [Urine:3200] Vitals Ranges: Temp: [36.4 C (97.5 F)-37.7 C (99.8 F)] 36.4 C (97.5 F) Pulse: [55-85] 64 Resp: [9-22] 17 BP: (120-160)/(45-115) 141/55 mmHg Vitals: Temp: 36.4 C (97.5 F) BP: 141/55 mmHg Pulse: 64 Resp: 17 SpO 2: 98 % SpO2 98 % on room air at flow rate L/min Subjective No chest nor abd pain, nausea without vomit, no BM but yet gas, yes back pain ROS See above Exam General alert, NAD mood and affect quiet speech fluent Eye anicteric Cardiac RRR soft systolic murmur Extremities no significant edema Lung clear to auscultation effort not labored Abdominal + bowel sounds, soft, nontender Assessment and Hospital Course Active Hospital Problems Diagnosis GI bleed She also had black Hemoccult-positive stool in the emergency room in addition to reports of black stool 2 nights ago. Has been taking Voltaren for quite some time. Also on daily asp irin. I spoke with Dr. Pandya who will consult and probably due on endoscopy . November 04 had 3 PRBC so far and I ordered 4th this morning Hypertension Did empirically cut back on medication here given her anemia GERD By history Anemia due to blood loss, acute From GI bleeding. Troponin I above reference range EKG without ischemia. Mild troponin leak but well below threshold for KS. Echo EF 63%, no sig change versus 2010 Echo Lytic lesion of bone on x-ray Serum protein electrophoresis ordered. She is going to have a bone scan in the outpatient setting. 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 Has been on daily aspirin. Valvular heart disease NOT significant Echo this admit mild AI, mild MR, mild TR SCDs have been ordered Plan Updated at [address] Pandya showed DU, he did H Pylori Bx no bleeding at time of EGD 4th PRBC given this morning SPEP OK Bone Scan tomorrow (maybe) trace from [facility] Discussed mild trop leak and consideration for outpatient Currently wearing her SCDs Dr Pandya said I could start low dose ASA and I told patient will start tomorrow (I will mary it labs though) Yoel Carranza MD 11/04/2013 7:[address] [facility] Dot phrase reference: VSHOSP (VS in table, last 24 hours) MEYLAB (various labs to pull in) DT (date and time) LABRCNTIP[K:3,Na:3 (last 3 sets of labs using potassium and sodium as examples) HGB HCT PLT INR GLU POCGLU Na K BUN CREA, CALCIUM TROPONINI BNP DIGOXIN DDIMERQUANT Portions of this chart may have been created with [employer] voice recognition software. Occasi onal wrong-word or sound-alike substitutions may have occurred due to the inherent doe itations of voice recognition software. Please read the chart carefully and recognize, using context, where these substitutions have occurred documented in this en counter Plan of Treatment +--------+---------+ + + + | Date | Type | Specialty | Care Team | Description | +--------+---------+ + + + | 06/02/ | Office | Orthopedic Surgery | Ulysses Jensen, | | 2019 | Visit | | MD Danny FLANNERY | | | | | | [place] | | | | | | [id number] | | | | | | | | +--------+---------+ + + + | 11/21/ | Office | Cardiology | Yesi, | | 2019 | Visit | | JOSE ALBERTO Linder [address] | | | | | | [address] | | | | | | [place] [address] | | | | | | [phone] | | | | | | | | +--------+---------+ + + + documented as of this encounter Procedures + +--------+ + + + | Procedure Name | Priori | Date/Time | Associated Diagnosis | Comments | | | ty | | | | + +--------+ + + + | NM BONE SCAN WHOLE | Routin | 11/05/2013 | | Results for this | | BODY | e | 11:13 AM | | procedure are in the | | | | PDT | | results section. | + +--------+ + + + | CBC WITH | Routin | 11/05/2013 | | Results for this | | DIFFERENTIAL | e | 7:00 AM | | procedure are in the | | | | PDT | | results section. | + +--------+ + + + | BASIC METABOLIC | Routin | 11/05/2013 | | Results for this | | PANEL | e | 6:38 AM | | procedure are in the | | | | PDT | | results section. | + +--------+ + + + | PRODUCT: RBC | DEIDRE | 11/05/2013 | | Results for this | | | | 1:15 AM | | procedure are in the | | | | PDT | | results section. | + +--------+ + + + | CBC NO DIFFERENTIAL | Routin | 11/04/2013 | | Results for this | | | e | 1:15 PM | | procedure are in the | | | | PDT | | results section. | + +--------+ + + + | PRODUCT: RBC | Routin | 11/04/2013 | | Results for this | | | e | 1:14 PM | | procedure are in the | | | | PDT | | results section. | + +--------+ + + + | EGD | Routin | 11/04/2013 | | Results for this | | | e | 8:39 AM | | procedure are in the | | | | PDT | | results section. | + +--------+ + + + | EGD | | 11/04/2013 | GI bleed | | | | | 8:36 AM | | | | | | PDT | | | + +--------+ + + + | PRODUCT: RBC | STAT | 11/04/2013 | | Results for this | | | | 7:15 AM | | procedure are in the | | | | PDT | | results section. | + +--------+ + + + | CBC NO DIFFERENTIAL | Routin | 11/04/2013 | | Results for this | | | e | 6:58 AM | | procedure are in the | | | | PDT | | results section. | + +--------+ + + + | ECG 12 LEAD | STAT | 11/04/2013 | | Results for this | | | | 6:40 AM | | procedure are in the | | | | PDT | | results section. | + +--------+ + + + | TRANSFUSE 1 UNIT RED | STAT | 11/04/2013 | | | | BLOOD CELLS | | 6:06 AM | | | | | | PDT | | | + +--------+ + + + | CBC WITH | Routin | 11/04/2013 | | Results for this | | DIFFERENTIAL | e | 4:29 AM | | procedure are in the | | | | PDT | | results section. | + +--------+ + + + | MAGNESIUM | Routin | 11/04/2013 | | Results for this | | | e | 4:29 AM | | procedure are in the | | | | PDT | | results section. | + +--------+ + + + | BASIC METABOLIC | Routin | 11/04/2013 | | Results for this | | PANEL | e | 4:29 AM | | procedure are in the | | | | PDT | | results section. | + +--------+ + + + | PRODUCT: RBC | STAT | 11/04/2013 | | Results for this | | | | 1:15 AM | | procedure are in the | | | | PDT | | results section. | + +--------+ + + + | TROPONIN I | Routin | 11/04/2013 | | Results for this | | | e | 1:03 AM | | procedure are in the | | | | PDT | | results section. | + +--------+ + + + | CBC NO DIFFERENTIAL | Routin | 11/04/2013 | | Results for this | | | e | 1:03 AM | | procedure are in the | | | | PDT | | results section. | + +--------+ + + + | TROPONIN I | Routin | 11/03/2013 | | Results for this | | | e | 5:17 PM | | procedure are in the | | | | PDT | | results section. | + +--------+ + + + | CBC NO DIFFERENTIAL | Routin | 11/03/2013 | | Results for this | | | e | 5:17 PM | | procedure are in the | | | | PDT | | results section. | + +--------+ + + + | TRANSFUSE 2 UNITS | STAT | 11/03/2013 | | | | RED BLOOD CELLS | | 3:53 PM | | | | | | PDT | | | + +--------+ + + + | CULTURE, MRSA | Routin | 11/03/2013 | | Results for this | | | e | 1:15 PM | | procedure are in the | | | | PDT | | results section. | + +--------+ + + + | TROPONIN I | Routin | 11/03/2013 | | Results for this | | | e | 1:15 PM | | procedure are in the | | | | PDT | | results section. | + +--------+ + + + | PROTIME INR | Routin | 11/03/2013 | | Results for this | | | e | 1:15 PM | | procedure are in the | | | | PDT | | results section. | + +--------+ + + + | CBC NO DIFFERENTIAL | Routin | 11/03/2013 | | Results for this | | | e | 1:15 PM | | procedure are in the | | | | PDT | | results section. | + +--------+ + + + | TRANSFUSE 2 UNITS | STAT | 11/03/2013 | | | | RED BLOOD CELLS | | 1:04 PM | | | | | | PDT | | | + +--------+ + + + | ECHO COMPLETE | Routin | 11/03/2013 | | Results for this | | | e | 12:00 PM | | procedure are in the | | | | PDT | | results section. | + +--------+ + + + | PROTEIN | Routin | 11/03/2013 | | Results for this | | ELECTROPHORESIS, | e | 11:37 AM | | procedure are in the | | SERUM | | PDT | | results section. | + +--------+ + + + | POCT URINALYSIS, | STAT | 11/03/2013 | | Results for this | | AUTO WITH CONF | | 9:42 AM | | procedure are in the | | | | PDT | | results section. | + +--------+ + + + | TYPE AND SCREEN | Routin | 11/03/2013 | | Results for this | | | e | 8:43 AM | | procedure are in the | | | | PDT | | results section. | + +--------+ + + + | XR CHEST AP PORTABLE | STAT | 11/03/2013 | | Results for this | | | | 8:35 AM | | procedure are in the | | | | PDT | | results section. | + +--------+ + + + | TROPONIN I | STAT | 11/03/2013 | | Results for this | | | | 8:17 AM | | procedure are in the | | | | PDT | | results section. | + +--------+ + + + | CBC NO DIFFERENTIAL | STAT | 11/03/2013 | | Results for this | | | | 8:17 AM | | procedure are in the | | | | PDT | | results section. | + +--------+ + + + | BASIC METABOLIC | STAT | 11/03/2013 | | Results for this | | PANEL | | 8:17 AM | | procedure are in the | | | | PDT | | results section. | + +--------+ + + + documented in this encounter Results NM Bone Scan Whole Body (11/05/2013 11:13 AM PDT) + + | Specimen | + + | | + + + + + | Narrative | Performed At | + + + | NM BONE SCAN WHOLE BODY. 11/05/2013 7:40 AM HISTORY: | [facility] | | Diagnostic bone scan as patient has multiple lytic lesions on recent | LAB | | MRI COMPARISON:MRI thoracic spine 10/26/2013 TECHNIQUE: | | | Approximately three hours after injection of 25.3 mCi technetium 99m | | | MDP, total body images were obtained in anterior and posterior | | | projections. FINDINGS: There is a small focus of mildly increased | | | activity in the region of the vertex of the skull. There is | | | asymmetrically increased activity within the left humeral head, | | | corresponding to the abnormality seen on the prior MRI. Increased | | | activity is also seen in the right side of the sternal manubrium, | | | corresponding to the abnormality seen on MRI. There is a tiny focal | | | area of mildly increased activity in what is probably the left | | | anterior sixth rib at the costochondral junction. Focal increased | | | activity is seen at the anterior aspect of the left knee, centered at | | | the midline of the distal left femur, much better seen from the | | | anterior view than on the posterior view. IMPRESSION - Multiple | | | foci of increased activity as described above, concerning for | | | metastatic disease or multiple myeloma. Note that there is no | | | evidence of focal abnormality within the spine, as would commonly be | | | seen with multiple myeloma. Dictated and Signed by: Gaurav | | | MD Sonam Electronically signed: 11/05/2013 11:48 AM | | + + + + + | Procedure Note | + + | Remington, Rad Results In - 11/05/2013 11:51 AM PDT NM BONE SCAN WHOLE BODY. 11/05/2013 | | 7:40 AMHISTORY: Diagnostic bone scan as patient has multiple lytic lesions on | | recentMRICOMPARISON:MRI thoracic spine 10/26/2013TECHNIQUE: Approximately three hours | | after injection of 25.3 mCi technetium 99mMDP, total body images were obtained in | | anterior and posterior projections.FINDINGS:There is a small focus of mildly increased | | activity in the region of the vertexof the skull.There is asymmetrically increased | | activity within the left humeral head,corresponding to the abnormality seen on the prior | | MRI.Increased activity is also seen in the right side of the sternal | | manubrium,corresponding to the abnormality seen on MRI.There is a tiny focal area of | | mildly increased activity in what is probably theleft anterior sixth rib at the | | costochondral junction.Focal increased activity is seen at the anterior aspect of the | | left knee,centered at the midline of the distal left femur, much better seen from | | theanterior view than on the posterior view.IMPRESSION -Multiple foci of increased | | activity as described above, concerning formetastatic disease or multiple myeloma. Note | | that there is no evidence of focalabnormality within the spine, as would commonly be | | seen with multiple myeloma.Dictated and Signed by: Gaurav Masters MD Electronically | | signed: 11/05/2013 11:48 AM | |There is a tiny focal area of mildly increased activity in what is probably the | |left anterior sixth rib at the costochondral junction. | |Focal increased activity is seen at the anterior aspect of the left knee, | |centered at the midline of the distal left femur, much better seen from the | |anterior view than on the posterior view. | | | |IMPRESSION - | |Multiple foci of increased activity as described above, concerning for | |metastatic disease or multiple myeloma. Note that there is no evidence of focal | |abnormality within the spine, as would commonly be seen with multiple myeloma. | | | |Dictated and Signed by: Gaurav Masters MD | | Electronically signed: 11/05/2013 11:48 AM | + + + +---------+ + + | Performing | Address | City/State/Zipcode | Phone Number | | Organization | | | | + +---------+ + + | [facility] | | | [phone] | + +---------+ + + | [facility] | | | [phone] | + +---------+ + + CBC with Differential (11/05/2013 7:00 AM PDT) + + + + + + | Component | Value | Ref Range | Performed | Pathologist | | | | | At | Signature | + + + + + + | WBC | 9.8 | 4.0 - 11.0 K/uL | [facility] | | | | | | [facility] | | | | | | [facility] | | | | [facility] - | | | | | | LABORATORY | | + + + + + + | RBC | 3.46 (L) | 3.70 - 5.20 | [facility] | | | | | M/uL | [facility] | | | | | | [facility] | | | | | | [facility] - | | | | | | LABORATORY | | + + + + + + | Hemoglobin | 11.1 (L) | 11.5 - 16.0 | [facility] | | | | | g/dL | [facility] | | | | | | [facility] | | | | | | C[facility] - | | | | | | LABORATORY | | + + + + + + | Hematocrit | 31.7 (L) | 34.0 - 47.0 % | [facility] | | | | | | [facility] | | | | | | [facility] | | | | | | [facility] - | | | | | | LABORATORY | | + + + + + + | MCV | 91.4 | 83.0 - 101.0 fL | [facility] | | | | | | [facility] | [facility] | | | | | | [facility] - | | | | | | LABORATORY | | + + + + + + | MCH | 31.9 | 28.0 - 35.0 pg | [facility] | | | | | | [facility] | | | | | | [facility] | | | | | | [facility] - | | | | | | LABORATORY | | + + + + + + | MCHC | 34.9 | 32.0 - 36.0 | [facility] | | | | | g/dL | [facility] | | | | | | [facility] | | | | | | [facility] - | | | | | | LABORATORY | | + + + + + + | RDW-CV | 16.6 (H) | <15.0 % | [facility] | | | | | | [facility] | | | | | | [facility] | | | | | | [facility] - | | | | | | LABORATORY | | + + + + + + | Platelet | 406 | 140 - 440 K/uL | [facility] | | | Count | | | [facility] | | | | | | [facility] | | | | | | [facility] - | | | | | | LABORATORY | | + + + + + + | MPV | 8.9 | fL | [facility] | | | | | | [facility] | | | | | | [facility] | | | | | | [facility] - | | | | | | LABORATORY | | + + + + + + | % | 68.5 | 45.0 - 82.0 % | [facility] | | | Neutrophils | | | [facility] | | | | | | [facility] | | | | | | [facility] - | | | | | | LABORATORY | | + + + + + + | % | 19.3 (L) | 20.0 - 45.0 % | [facility] | | | Lymphocytes | | | [facility] | | | | | | [facility] | | | | | | [facility] - | | | | | | LABORATORY | | + + + + + + | % Monocytes | 7.3 | 4.0 - 12.0 % | [facility] | | | | | | [facility] | | | | | | [facility] | | | | | | [facility] - | | | | | | LABORATORY | | + + + + + + | % | 4.2 | 0.0 - 5.0 % | [facility] [...] + + + + | Absolute | 6.70 | 1.80 - 8.50 | [facility] | [...] + | [facility] | [address] | [place] | [phone] | | [facility] | | [address] | | | - LABORATORY | | | | + + + + + | [facility] | [address] | [place] | | | [facility] | | [address] | | | - LABORATORY | | | | + + + + + Basic Metabolic Panel (11/05/2013 6:38 AM PDT) + + + + + + | Component | Value | Ref Range | Performed | Pathologist | | | | | At | Signature | + + + + + + | Na | 139 | 136 - 149 | [facility] | | | | | mmol/L | [facility] | | | | | | [facility] | | | | | | CENTER - | | | | | | LABORATORY | | + + + + + + | K | 3.7 | 3.5 - 5.1 | [facility] | | | | | mmol/L | [facility] | | | | | | [facility] | | | | | | CENTER - | | | | | | LABORATORY | | + + + + + + | Cl | 106 | 98 - 109 mmol/L | [facility] [...] + + + + | BUN | 6 (L) | 7 - 18 mg/dL | [facility] | | | | | | [facility] | | | | | | [facility] | | | | | | C[facility] - | | | | | | LABORATORY | | + + + + + + | Creatinine | 0.64 | 0.60 - 1.30 | [facility] | | | | | mg/dL | [facility] | | | | | | [facility] | | | | | | CENTER - | | | | | | LABORATORY | | + + + + + + | eGFR if not | >60Comment: GLOMERULAR | >=60 | [facility] | | | | FILTRATION | mL/min/1.73m2 | [facility] | | | LUXEM[facility]OUR[facility] | RATE,ESTIMATED | | MEDICAL | | | | mL/min/1.68y0Jljj than | | CENTER - | | [...] + + + + | Calcium | 8.7 | 8.3 - 10.5 | [facility] | | | | | mg/dL | [facility] | | | | | | MEDICAL | | | | | | CENTER - | | | | | | LABORATORY | | + + + + + + | BUN/Creatin | 9.4 | | [facility] | | | ine Ratio | | | [facility] | | | | | [...] [address] | [place] | [phone] | | [facility] | | [address] | | | - LABORATORY | | | | + + + + + | [facility] | [address] | [place] | | | [facility] | | [address] | | | - LABORATORY | | | | + + + + + PRODUCT: RBC (11/05/2013 1:15 AM PDT) + + + + + + | Component | Value | Ref Range | Performed | Pathologist | | | | | At | Signature | + + + + + + | Product | RBC Leukocytes Reduced , | | [facility] | | | Code | Container 1 | | [facility] | | | | | [facility] | | | | | | C[facility] - | | | | | | BLOOD BANK | | + + + + + + | UNIT # | [id number] | | [facility] | | | | [...] + + + | Unit Status | Transfused | | [facility] | | | | | | [facility] [...] [place] | | | [facility] | | [address] | | | - BLOOD BANK | | | | + + + + + CBC no Differential (11/04/2013 1:15 PM PDT) + + + + + + | Component | Value | Ref Range | Performed | Pathologist | | | | | At | Signature | + + + + + + | WBC | 12.7 (H) | 4.0 - 11.0 K/uL | [facility] | | | | | | [facility] | | | | | | [facility]ICAL | | | | | | CENTER - | | | | | | LABORATORY | | + + + + + + | RBC | 3.42 (L) | 3.70 - 5.20 | [facility] | | | | | M/uL | [facility] | | | | | | MEDICAL | | | | | | CENTER - | | | | | | LABORATORY | | + + + + + + | Hemoglobin | 10.5 (L) | 11.5 - 16.0 | [facility] | | | | | g/dL | [facility] | | | | | | MEDICAL | | | | | | CENTER - | | | | | | LABORATORY | | + + + + + + | Hematocrit | 31.4 (L) | 34.0 - 47.0 % | [facility] | | | | | | [facility] | | | | | | MEDICAL | | | | | | CENTER - | | | | | | LABORATORY | | + + + + + + | MCV | 91.9 | 83.0 - 101.0 fL | [facility] | | | | | | [facility] | | | | | | [facility]ICAL | | | | | | CENTER - | | | | | | LABORATORY | | + + + + + + | MCH | 30.6 | 28.0 - 35.0 pg | [facility] [...] + + + + | RDW-CV | 17.0 (H) | <15.0 % | [facility] | | | | | | [facility] | | | | | | [facility]ICAL | | | | | | CENTER - | | | | | | LABORATORY | | + + + + + + | Platelet | 374 | 140 - 440 K/uL | [facility] [...] + | [facility] | [address] | [place], [place] | [phone] | | [facility] | | [address] | | | - LABORATORY | | | | + + + + + | [facility] | [address] | [place], [place] | | | [facility] | | [address] | | | - LABORATORY | | | | + + + + + PRODUCT: RBC (11/04/2013 1:14 PM PDT) + + + + + + | Component | Value | Ref Range | Performed | Pathologist | | | | | At | Signature | + + + + + + | Product | RBC Leukocytes Reduced | | [facility] | | | Code | | | [facility] | | | | | | MEDICAL | | | | | | CENTER - | | | | | | BLOOD BANK | | + + + + + + | UNIT # | [id number] | | [facility] | | | | [...] | | INTERP | | | [facility] | | | | | | MEDICAL | | | | | | CENTER - | | | | | | BLOOD BANK | | + + + + + + | Unit Status | Transfused | | [facility] | | | | [...] + + + + + | [facility] | [address] | [place] | | | [facility] | | [address] | | | - BLOOD BANK | | | | + + + + + EGD (11/04/2013 8:39 AM PDT) + + | Specimen | + + | | + + + + -+ | Narrative | Performed At | + + -+ | | [facility] | | GastroenterologyPatient Name: Soumya Grimes Date: 11/04/2013 8:39 | [facility] | | AMN: [id number] #: [id number] of : 8Admit | | | Type: InpatientAge: 78Room: [facility] 02Gender: FemaleNote Status: | | | FinalizedAttending MD: Samm Pandya, MDProcedure: | | | Upper GI endoscopyIndications: MelenaProviders: | | | Samm Pandya MD, Mary Acosta RN, Stephie Monsalve, | | | TechnicianReferring MD: Rodolfo Cruz, | | | MD (Referring MD)Medicines: Cetacaine spray, Fentanyl 100 | | | micrograms IV, Midazolam 3 mg | | | IVComplications: No immediate complications.Procedure: | | | Pre-Anesthesia Assessment: - Prior to the procedure, a History | | | and Physical was performed, and patient medications [...] the nurse | | | and the autocad technician in the 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 Mental Status | | | Examination: alert and oriented. Airway Examination: Mallampati | | | Class II (the uvula but not tonsillar pillars visualized). | | | Respiratory Examination: clear to auscultation. CV Examination: | | | normal. Prophylactic Antibiotics: The patient does not require | | | prophylactic antibiotics. Prior Anticoagulants: The patient | | | has taken no previous anticoagulant or antiplatelet agents. ASA | | | Grade Assessment: III - A patient with severe systemic disease. | | | After reviewing the risks and benefits, the patient was deemed in | | | satisfactory condition to undergo the procedure. The anesthesia | | | plan was to use moderate sedation / analgesia (conscious | | | sedation). Immediately prior to administration of medications, | | | the patient was re-assessed for adequacy to receive sedatives. | | | The heart rate, respiratory rate, oxygen saturations, blood | | | pressure, adequacy of pulmonary ventilation, and response to | | | care were monitored throughout the procedure. The physical | | | status of the patient was re-assessed after the procedure. After | | | obtaining informed consent, the endoscope was passed under direct | | | vision. Throughout the procedure, the patient's blood pressure, | | | pulse, and oxygen saturations were monitored continuously. The | | | endoscope was introduced through the mouth, and advanced to the | | | third part of duodenum. The upper GI endoscopy was | | | accomplished without difficulty. The patient tolerated the | | | procedure well.Findings: One non-bleeding cratered duodenal | | | ulcer with no stigmata of bleeding was found in the second part | | | of the duodenum. The lesion was 18 mm in largest dimension. | | | The exam of the duodenum was otherwise normal. A few | | | localized, small non-bleeding erosions were found in the | | | prepyloric region of the stomach. Biopsies were taken with a cold | | | forceps for Helicobacter pylori testing. Estimated blood loss: | | | none. The exam of the stomach was otherwise normal. A | | | small hiatus hernia was present. Localized moderate mucosal | | | abnormality characterized by scarring (post esophagitis) was | | | found at the gastroesophageal junction. The exam of the | | | esophagus was otherwise normal.Impression: - One duodenal ulcer | | | with clean base. - Non-bleeding erosive gastropathy. Biopsied. | | | - Hiatus hernia. - Scarred (post esophagitis) mucosa in | | | the esophagus.Recommendation: - Continue present medications. | | | - No aspirin, ibuprofen, naproxen, or other non-steroidal | | | anti-inflammatory drugs. - Return patient to ICU for ongoing | | | care. - Regular diet. - Await pathology results. - | | | Recommend double dose PPI for 1 month then regular daily dose | | | chronically.Samm Pandya MD11/04/2013 9:06 AMNumber of Addenda: | | | 0Note Initiated On: 11/04/2013 8:39 AM Located Within [facility] | | | [facility], [address] [place] [address] | | | [phone] | | | - Non-bleeding erosive gastropathy. Biopsied. | | | - Hiatus hernia. | | | - Scarred (post esophagitis) mucosa in the esophagus. | | |Recommendation: | | | - Continue present medications. | | | - No aspirin, ibuprofen, naproxen, or other non-steroidal | | | anti-inflammatory drugs. | | | - Return patient to ICU for ongoing care. | | | - Regular diet. | | | - Await pathology results. | | | - Recommend double dose PPI for 1 month then regular daily dose | | | chronically. | | |Samm Pandya MD | | |11/04/2013 9:06 AM | | |Number of Addenda: 0 | | |Note Initiated On: 11/04/2013 8:39 AM | | | [facility], [address], [place] | | | [address] | | + + -+ + + | Transcriptions | + + | Laura Greenwoodal - 11/04/2013 12:00 AM PDT | + + + +---------+ + + | Performing | Address | City/State/Zipcode | Phone Number | | Organization | | | | + +---------+ + + | [facility] | | | | + +---------+ + + PRODUCT: RBC (11/04/2013 7:15 AM PDT) + + + + + + | Component | Value | Ref Range | Performed | Pathologist | | | | | At | Signature | + + + + + + | Product | RBC Leukocytes Reduced , | | [facility] | | | Code | Container 2 | | [facility] | | | | | | [facility]ICAL | | | | | | CENTER - | | | | | | BLOOD BANK | | + + + + + + | UNIT # | [id number] | | [facility] | | | | [...] | | INTERP | | | [facility] | | | | | | MEDICAL | | | | | | CENTER - | | | | | | BLOOD BANK | | + + + + + + | Unit Status | Transfused | | [facility] | | | | | | [facility] [...] | [facility] | [address] | [place] | | | [facility] | | [address] | | | - BLOOD BANK | | | | + + + + + CBC no Differential (11/04/2013 6:58 AM PDT) + + + + + [...] + + + + | Hemoglobin | 9.1 (L) | 11.5 - 16.0 | [facility] | | | | | g/dL | [facility] | | | | | | MEDICAL | | | | | | CENTER - | | | | | | LABORATORY | | + + + + + + | Hematocrit | 25.8 (L) | 34.0 - 47.0 % | [...] + + + + | MCH | 32.9 | 28.0 - 35.0 pg | [facility] | | | | | | [facility] | | | | | | MEDICAL | | | | | | CENTER - | | | | | | LABORATORY | | + + + + + + | MCHC | 35.2 | 32.0 - 36.0 | [facility] | | | | | g/dL | [facility] | | | | | | MEDICAL | | | | | | CENTER - | | | | | | LABORATORY | | + + + + + + | RDW-CV | 17.3 (H) | <15.0 % | [facility] | | | | | | [facility] | | | | | | MEDICAL | | | | | | CENTER - | | | | | | LABORATORY | | + + + + + + | Platelet | 324 | 140 - 440 K/uL | [facility] | | | Count | | | [facility] | | | | | | MEDICAL | | | | | | CENTER - | | | | | | LABORATORY | | + + + + + + | MPV | 8.9 | fL | [facility] | | | [...] + | [facility] | [address] | [place] | [phone] | | [facility] | | [address] | | | - LABORATORY | | | | + + + + + | [facility] | [address] | [place] | | | [facility] | | [address] | | | - LABORATORY | | | | + + + + + ECG 12 lead (11/04/2013 6:40 AM PDT) + + + | Narrative | Performed At | + + + | Jonny Samayoa MD 11/04/2013 6:40 Adult ECG Report | | | Name: Soumya Jackson Age: 78 y.o. Gender: female 11/03/13 at | | | 8:15 Narrative Interpretation: Normal sinus rhythm. Normal axis. | | | Normal intervals. Anterolateral and inferior ST "scooping": | | | Cannot exclude ischemia. | | + + + + + | Procedure Note | + + | Jonny Samayoa MD - 11/04/2013 6:39 AM PDT Adult ECG Report Name: Soumya Jackson | | Age: 78 y.o. Gender: female11/03/13 at 8:15 Narrative Interpretation: Normal sinus | | rhythm. Normal axis. Normal intervals. Anterolateral and inferior ST "scooping": | | Cannot exclude ischemia. | | Gender: female | | | |11/03/13 at 8:15 | | Narrative Interpretation: Normal sinus rhythm. Normal axis. Normal intervals. Anterolat eral and inferior ST "scooping": Cannot exclude ischemia. | + + Magnesium (11/04/2013 4:29 AM PDT) + +-------+ + + + | Component | Value | Ref Range | Performed | Pathologist | | | | | At | Signature | + +-------+ + + + | Magnesium | 2.0 | 1.8 - 2.5 mg/dL | [facility] | | | | | [...] [address] | [place] | [phone] | | [facility] | | [address] | | | - LABORATORY | | | | + + + + + | [facility] | [address] | [place] | | | [facility] | | [address] | | | - LABORATORY | | | | + + + + + CBC with Differential (11/04/2013 4:29 AM PDT) + + + + + + | Component | Value | Ref Range | Performed | Pathologist | | | | | At | Signature | + + + + + + | WBC | 10.3 | 4.0 - 11.0 K/uL | [facility] | | | | | | [facility] | | | | | [facility] | | | | | | CENTER - | | | | | | LABORATORY | | + + + + + + | RBC | 2.71 (L) | 3.70 - 5.20 | [facility] | | | | | M/uL | [facility] | | | | | | MEDICAL | | | | | | CENTER - | | | | | | LABORATORY | | + + + + + + | Hemoglobin | 8.6 (L) | 11.5 - 16.0 | [facility] | | | | | g/dL | [facility] | | | | | | MEDICAL | | | | | | CENTER - | | | | | | LABORATORY | | + + + + + + | Hematocrit | 25.1 (L) | 34.0 - 47.0 % | [facility] | | | | | | [facility] | | | | | | MEDICAL | | | | | | CENTER - | | | | | | LABORATORY | | + + + + + + | MCV | 92.4 | 83.0 - 101.0 fL | [facility] | | | | | | [facility] | | | | | | MEDICAL | | | | | | CENTER - | | | | | | LABORATORY | | + + + + + + | MCH | 31.7 | 28.0 - 35.0 pg | [facility] | | | | | | [facility] | | | | | | MEDICAL | | | | | | CENTER - | | | | | | LABORATORY | | + + + + + + | MCHC | 34.3 | 32.0 - 36.0 | [facility] | | | | | g/dL | [facility] | | | | | | MEDICAL | | | | | | CENTER - | | | | | | LABORATORY | | + + + + + + | RDW-CV | 16.9 (H) | <15.0 % | [facility] | | | | | | [facility] | | | | | | MEDICAL | | | | | | CENTER - | | | | | | LABORATORY | | + + + + + + | Platelet | 324 | 140 - 440 K/uL | [facility] | | | Count | | | [facility] | | | | | | MEDICAL | | | | | | CENTER - | | | | | | LABORATORY | | + + + + + + | MPV | 8.5 | fL | [facility] | | | | | | [facility] | | | | | | MEDICAL | | | | | | CENTER - | | | | | | LABORATORY | | + + + + + + | % | 66.0 | 45.0 - 82.0 % | [facility] | | | Neutrophils | | | [facility] | | | | | | MEDICAL | | | | | | CENTER - | | | | | | LABORATORY | | + + + + + + | % | 23.0 | 20.0 - 45.0 % | [facility] | | | Lymphocytes | | | [facility] | | | | | | MEDICAL | | | | | | CENTER - | | | | | | LABORATORY | | + + + + + + | % Monocytes | 7.6 | 4.0 - 12.0 % | [facility] | | | | | | [facility] | | | | | | MEDICAL | | | | | | CENTER - | | | | | | LABORATORY | | + + + + + + | % | 2.8 | 0.0 - 5.0 % | [facility] | | | Eosinophils | | | [facility] | | | | | | MEDICAL | | | | | | CENTER - | | | | | | LABORATORY | | + + + + + + | % Basophils | 0.6 | 0.0 - 1.0 % | [facility] | | | | | | [facility] | | | | | | MEDICAL | | | | | | CENTER - | | | | | | LABORATORY | | + + + + + + | Absolute | 6.80 | 1.80 - 8.50 | [facility] | | | Neutrophils | | K/uL | [facility] | | | | | | MEDICAL | | | | | | CENTER - | | | | | | LABORATORY | | + + + + + + | Absolute | 2.40 | 0.60 - 3.20 | [facility] | [...] + | [facility] | [address] | [place] | [phone] | | [facility] | | [address] | | | - LABORATORY | | | | + + + + + | [facility] | [address] | [place] | | | [facility] | | [address] | | | - LABORATORY | | | | + + + + + Basic Metabolic Panel (11/04/2013 4:29 AM PDT) + + + + + [...] + + + + | K | 3.7 | 3.5 - 5.1 | [facility] | | | | | mmol/L | [facility] | | | | | | MEDICAL | | | | | | CENTER - | | | | | | LABORATORY | | + + + + + + | Cl | 109 | 98 - 109 mmol/L | [facility] | | | | | | [facility] | | | | | | MEDICAL | | | | | | CENTER - | | | | | | LABORATORY | | + + + + + + | CO2 | 21 (L) | 24 - 31 mmol/L | [...] + + + + | Glucose | 121 (H) | 70 - 109 mg/dL | [facility] | | | | | | [facility] | | | | | | MEDICAL | | | | | | CENTER - | | | | | | LABORATORY | | + + + + + + | BUN | 3 (L) | 7 - 18 mg/dL | [facility] | | | | | | [facility] | | | | | | MEDICAL | | | | | | CENTER - | | | | | | LABORATORY | | + + + + + + | Creatinine | 0.59 (L) | 0.60 - 1.30 | [facility] | [...] | | | FILTRATION | mL/min/1.73m2 | [facility] | | | LUXEMBOURGER | RATE,ESTIMATED | | MEDICAL | | | | mL/min/1.42d2Ahav than | | CENTER - | | [...] | | | | | mg/dL | [facility] | | | | | | MEDICAL | | | | | | CENTER - | | | | | | LABORATORY | | + + + + + + | BUN/Creatin | 5.1 | | [facility] | | | ine [...] [address] | [place] | [phone] | | [facility] | | [address] | | | - LABORATORY | | | | + + + + + | [facility] | [address] | [place] | | | [facility] | | [address] | | | - LABORATORY | | | | + + + + + PRODUCT: RBC (11/04/2013 1:15 AM PDT) + + + + + + | Component | Value | Ref Range | Performed | Pathologist | | | | | At | Signature | + + + + + + | Product | RBC Leukocytes Reduced , | | [facility] | | | Code | Container 2 | | [facility] | | | | | | MEDICAL | | | | | | CENTER - | | | | | | BLOOD BANK | | + + + + + + | UNIT # | [id number] | | [facility] | | | | [...] + + + | Unit Status | Transfused | | [facility] | | | | | [...] [place] | | | [facility] | | [address] | | | - BLOOD BANK | | | | + + + + + CBC no Differential (11/04/2013 1:03 AM PDT) + + + + + + | Component | Value | Ref Range | Performed | Pathologist | | | | | At | Signature | + + + + + + | WBC | 11.6 (H) | 4.0 - 11.0 K/uL | [facility] | | | | | | [facility] | | | | | | MEDICAL | | | | | | CENTER - | | | | | | LABORATORY | | + + + + + + | RBC | 2.67 (L) | 3.70 - 5.20 | [facility] [...] + + + + | MCV | 92.7 | 83.0 - 101.0 fL | [facility] [...] + + + + | RDW-CV | 16.9 (H) | <15.0 % | [facility] | | | | | | [facility] | | | | | | MEDICAL | | | | | | CENTER - | | | | | | LABORATORY | | + + + + + + | Platelet | 321 | 140 - 440 K/uL | [facility] [...] + | [facility] | [address] | [place], [place] | [phone] | | [facility] | | [address] | | | - LABORATORY | | | | + + + + + | [facility] | [address] | [place], [place] | | | [facility] | | [address] | | | - LABORATORY | | | | + + + + + Troponin I (11/04/2013 1:03 AM PDT) + + + + + + | Component | Value | Ref Range | Performed | Pathologist | | | | | At | Signature | + + + + + + | Troponin I | 0.12 (H)Comment: | <0.06 ng/mL | [facility] | | | | Reference | | [facility] | | | | Ranges:0.00-0.06 = | | MEDICAL | | | | NORMAL>0.06 = | | CENTER - | | | | SUSPICIOUS FOR | | LABORATORY | | | | MYOCARDIAL DAMAGE NOTE: | | | | | | Values greater than 0.50 | | | | | | ng/mL have been shown | | | | | | to be strongly | | | | | | associated with acute | | | | | | myocardial infarction. | | | | | | The [employer] | | | | | | Cardiology (ACC) | | | | | | recommends a decision | | | | | | limit of 0.06 ng/mL for | | | | | | this assay. Results | | | | | | greater than 0.06 can | | | | | | reflect a pre-infarct | | | | | | acute coronary syndrome, | | | | | | but can also reflect | | | | | | myocardial necrosis or | | | | | | injury that is not due | | | | | | to coronary artery | | | | | | disease. Some of these | | | | | | causes are sepsis, | | | | | | hypocolemia, atrial | | | | | | fibrillation, heart | | | | | | failure, pulmonary | | | | | | embolism, myocarditis, | | | | | | myocardial contusion, | | | | | | and renal failure. The | | | | | | diagnosis of myocardial | | | | | | infarction should be | | | | | | based on a combination | | | | | | of the patient's | | | | | | clinical presentation | | | | | | and the clinical | | | | | | laboratory test results | | | | | | (especially serial | | | | | | troponin levels). | | | | + + + + + + + + | Specimen | + + | Blood | + + + + + + + | Performing | Address | City/State/Zipcode | Phone Number | | Organization | | | | + + + + + | [facility] | [address] | [place] | [phone] | | [facility] | | [address] | | | - LABORATORY | | | | + + + + + | [facility] | [address] | [place] | | | [facility] | | [address] | | | - LABORATORY | | | | + + + + + CBC no Differential (11/03/2013 5:17 PM PDT) + + + + + + | Component | Value | Ref Range | Performed | Pathologist | | | | | At | Signature | + + + + + + | WBC | 14.3 (H) | 4.0 - 11.0 K/uL | [...] + + + + | Hematocrit | 24.4 (L) | 34.0 - 47.0 % | [facility] | | | | | | [facility] | | | | | | MEDICAL | | | | | | CENTER - | | | | | | LABORATORY | | + + + + + + | MCV | 93.9 | 83.0 - 101.0 fL | [facility] [...] + + + + | MCHC | 32.7 | 32.0 - 36.0 | [facility] | | | | | g/dL | [facility] | | | | | | MEDICAL | | | | | | CENTER - | | | | | | LABORATORY | | + + + + + + | RDW-CV | 16.8 (H) | <15.0 % | [facility] | | | | | | [facility] | | | | | | MEDICAL | | | | | | CENTER - | | | | | | LABORATORY | | + + + + + + | Platelet | 366 | 140 - 440 K/uL | [facility] [...] | [address] | [place] | [phone] | | [facility] | | [address] | | | - LABORATORY | | | | + + + + + | [facility] | [address] | [place] | | | [facility] | | [address] | | | - LABORATORY | | | | + + + + + Troponin I (11/03/2013 5:17 PM PDT) + + + + + + | Component | Value | Ref Range | Performed | Pathologist | | | | | At | Signature | + + + + + + | Troponin I | 0.09 (H)Comment: | <0.06 ng/mL | [facility] | | | | Reference | | [facility] | | | | Ranges:0.00-0.06 = | | MEDICAL | | | | NORMAL>0.06 = | | CENTER - | | | | SUSPICIOUS FOR | | LABORATORY | | | | MYOCARDIAL DAMAGE NOTE: | | | | | | Values greater than 0.50 | | | | | | ng/mL have been shown | | | | | | to be strongly | | | | | | associated with acute | | | | | | myocardial infarction. | | | | | | The [employer] | | | | | | Cardiology (ACC) | | | | | | recommends a decision | | | | | | limit of 0.06 ng/mL for | | | | | | this assay. Results | | | | | | greater than 0.06 can | | | | | | reflect a pre-infarct | | | | | | acute coronary syndrome, | | | | | | but can also reflect | | | | | | myocardial necrosis or | | | | | | injury that is not due | | | | | | to coronary artery | | | | | | disease. Some of these | | | | | | causes are sepsis, | | | | | | hypocolemia, atrial | | | | | | fibrillation, heart | | | | | | failure, pulmonary | | | | | | embolism, myocarditis, | | | | | | myocardial contusion, | | | | | | and renal failure. The | | | | | | diagnosis of myocardial | | | | | | infarction should be | | | | | | based on a combination | | | | | | of the patient's | | | | | | clinical presentation | | | | | | and the clinical | | | | | | laboratory test results | | | | | | (especially serial | | | | | | troponin levels). | | | | + + + + + + + + | Specimen | + + | Blood | + + + + + + + | Performing | Address | City/State/[facility] | Phone Number | | Organization | | | | + + + + + | [facility] | [address] | [place] | [phone] | | [facility] | | [address] | | | - LABORATORY | | | | + + + + + | [facility] | [address] | [place] | | | [facility] | | [address] | | | - LABORATORY | | | | + + + + + Culture, MRSA (11/03/2013 1:15 PM PDT) + + + + + + | Component | Value | Ref Range | Performed | Pathologist | | | | | At | Signature | + + + + + + | Culture | Negative for MRSA by | | [facility] | | | | chromogenic agar method | | [facility] | | | | | | MEDICAL | | | | | | CENTER - | | | | | | LABORATORY | | + + + + + + + + | Specimen | + + | Respiratory - Both | | anterior nares (body | | structure) | + + + + + + + | Performing | Address | City/State/Zipcode | Phone Number | | Organization | | | | + + + + + | [facility] | [address] | [place] | [phone] | | [facility] | | [address] | | | - LABORATORY | | | | + + + + + | [facility] | [address] | [place] | | | [facility] | | [address] | | | - LABORATORY | | | | + + + + + CBC no Differential (11/03/2013 1:15 PM PDT) + + + + + + | Component | Value | Ref Range | Performed | Pathologist | | | | | At | Signature | + + + + + + | WBC | 12.1 (H) | 4.0 - 11.0 K/uL | [facility] | | | | | | [facility] | | | | | | MEDICAL | | | | | | CENTER - | | | | | | LABORATORY | | + + + + + + | RBC | 2.13 (L) | 3.70 - 5.20 | [facility] | | | | | M/uL | [facility] | | | | | | MEDICAL | | | | | | CENTER - | | | | | | LABORATORY | | + + + + + + | Hemoglobin | 6.8 (LL)Comment: Alert | 11.5 - 16.0 | [facility] | | | | Value: Clinical Provider | g/dL | [facility] | | | | notification at Nurses | | MEDICAL | | | | discretion. | | CENTER - | | | | | | LABORATORY | | + + + + + + | Hematocrit | 20.5 (L) | 34.0 - 47.0 % | [facility] | | | | | | [facility] | | | | | | MEDICAL | | | | | | CENTER - | | | | | | LABORATORY | | + + + + + + | MCV | 95.8 | 83.0 - 101.0 fL | [facility] [...] + + + + | RDW-CV | 15.1 (H) | <15.0 % | [facility] | | | | | | [facility] | | | | | | MEDICAL | | | | | | CENTER - | | | | | | LABORATORY | | + + + + + + | Platelet | 369 | 140 - 440 K/uL | [facility] | | | Count | | | [facility] | | | | | | MEDICAL | | | | | | CENTER - | | | | | | LABORATORY | | + + + + + + | MPV | 9.0 | fL | [facility] | | | [...] + | [facility] | [address] | [place] | [phone] | | [facility] | | [address] | | | - LABORATORY | | | | + + + + + | [facility] | [address] | [place] | | | [facility] | | [address] | | | - LABORATORY | | | | + + + + + Troponin I (11/03/2013 1:15 PM PDT) + + + + + + | Component | Value | Ref Range | Performed | Pathologist | | | | | At | Signature | + + + + + + | Troponin I | 0.07 (H)Comment: | <0.06 ng/mL | [facility] | | | | Reference | | [facility] | | | | Ranges:0.00-0.06 = | | MEDICAL | | | | NORMAL>0.06 = | | CENTER - | | | | SUSPICIOUS FOR | | LABORATORY | | | | MYOCARDIAL DAMAGE NOTE: | | | | | | Values greater than 0.50 | | | | | | ng/mL have been shown | | | | | | to be strongly | | | | | | associated with acute | | | | | | myocardial infarction. | | | | | | The [employer] | | | | | | Cardiology (ACC) | | | | | | recommends a decision | | | | | | limit of 0.06 ng/mL for | | | | | | this assay. Results | | | | | | greater than 0.06 can | | | | | | reflect a pre-infarct | | | | | | acute coronary syndrome, | | | | | | but can also reflect | | | | | | myocardial necrosis or | | | | | | injury that is not due | | | | | | to coronary artery | | | | | | disease. Some of these | | | | | | causes are sepsis, | | | | | | hypocolemia, atrial | | | | | | fibrillation, heart | | | | | | failure, pulmonary | | | | | | embolism, myocarditis, | | | | | | myocardial contusion, | | | | | | and renal failure. The | | | | | | diagnosis of myocardial | | | | | | infarction should be | | | | | | based on a combination | | | | | | of the patient's | | | | | | clinical presentation | | | | | | and the clinical | | | | | | laboratory test results | | | | | | (especially serial | | | | | | troponin levels). | | | | + + + + + + + + | Specimen | + + | Blood | + + + + + + + | Performing | Address | City/State/Zipcode | Phone Number | | Organization | | | | + + + + + | [facility] | [address] | [place] | [phone] | | [facility] | | [address] | | | - LABORATORY | | | | + + + + + | [facility] | [address] | [place] | | | [facility] | | [address] | | | - LABORATORY | | | | + + + + + Protime INR (11/03/2013 1:15 PM PDT) + +-------+ + + + | Component | Value | Ref Range | Performed | Pathologist | | | | | At | Signature | + +-------+ + + + | Prothrombin | 13.0 | 11.3 - 13.9 | [facility] | | | Time | | seconds | [facility] | | | | | | MEDICAL | | | | | | CENTER - | | | | | | LABORATORY | | + +-------+ + + + | INR | 0.99 | 0.90 - 1.10 | [facility] | | | | | [...] + | [facility] | [address] | [place], [place] | [phone] | | [facility] | | [address] | | | - LABORATORY | | | | + + + + + | [facility] | [address] | [place], [place] | | | [facility] | | [address] | | | - LABORATORY | | | | + + + + + ECHO Complete (11/03/2013 12:00 PM PDT) + + | Specimen | + + | | + + + + + | Narrative | Performed At | + + + | [facility] ECHOCARDIOGRAM REPORT | | | STUDY DATE: 11/03/2013 PATIENT NAME: Soumya Jackson : | | | 1935 PCP: Rodolfo Cruz MD CLINICAL | | | HISTORY/DIAGNOSIS: Elevated troponin A transthoracic | | | echocardiogram with M-mode, pulsed-wave and color Doppler was | | | performed with standard views obtained. The technical quality of | | | this examination is adequate. The heart rhythm during the echo | | | cannot be defined as sinus, with heart rates near 80. The M-mode, | | | two-dimensional, color flow and spectral Doppler data were reviewed | | | and support the following interpretation: Interpretation: Left | | | Atrium: borderline enlarged. Left ventricle: Left ventricular size | | | is normal with normal wall thickness and motion, and normal left | | | ventricular systolic function. The estimated ejection fraction is | | | 63%. Grade 1 left ventricular diastolic dysfunction. Aortic | | | root: Aortic root is normal. Right Atrium: mildly enlarged. Right | | | ventricle: Right ventricular size is normal with normal wall | | | thickness and normal right ventricular systolic function. | | | Pericardium: Pericardium is normal. Pulmonary artery: Pulmonary | | | artery is normal. Aortic valve: mildly sclerotic with mild | | | insufficiency. Mitral valve: mildly thickened with mild | | | regurgitation. Pulmonic valve: Pulmonic valve is normal. Tricuspid | | | valve: normal with mild regurgitation and peak velocity of 3 m/s | | | consistent with RV SP 43-48 mmHg. Vena cava: The inferior vena cava | | | is normal. There is greater than 50% inspiratory collapse of the | | | IVC. IMPRESSIONS: 1. Normal LV size and systolic function with | | | LVEF 63%. 2. Mild aortic, mitral, and tricuspid insufficiency. 3. | | | RVSP 43-48 mm mercury. 4. Borderline to mild biatrial enlargement. | | | 5. Compared to patient's prior study 2010, no significant changes are | | | noted. Measurements: Height:66 Weight: 200 Aortic | | | root: 30 mm Aortic cusp sep: 17 mm LA: 37 mm IVS-diastole: | | | 10 mm IVS-systole: 13 mm LVPW diastole: 10 mm LVPW systole: | | | 14 mm LV diameter-diastole: 52 mm LV diameter-systole: 34 mm | | | Fractional shortenin % PFV aortic valve: m/s MPG mitral | | | valve: mmHg PFV TR jet: 3.09 m/s RA/RV PP mmHg LA | | | volume: 54 mL LA index: 28 mL/m2 Mitral Inflow DT: 284 ms | | | IVRT: 88 ms Valsalva: Not needed PWDTI S wave: 8.0 cm/s PWDTI | | | E wave: 6.8 cm/s PWDTI A wave: 14.8 cm/s E/A Ratio: 0.46 E/E | | | Ratio: 19.52 Signed by: Carito Maher MD PhD | | | [facility] 11/03/2013 12:17 Road Equipment Operator: Merlin Dolan, | | | RDMS | | + + + + + | Procedure Note | + + | Ric Maher MD - 11/03/2013 6:59 PM [facility] | | CENTERECHOCARDIOGRAM REPORTSTUDY DATE: 11/03/2013PATIENT NAME: Soumya Daniels: | | 1935MRN: [id number]: [facility] H[facility]DIAGNOSIS: Elevated | | troponinA transthoracic echocardiogram with M-mode, pulsed-wave and color Doppler was | | performed with standard views obtained. The technical quality of this examination is | | adequate. The heart rhythm during the echo cannot be defined as sinus, with heart rates | | near 80. The M-mode, two-dimensional, color flow and spectral Doppler data were | | reviewed and support the following interpretation:Interpretation:Left Atrium: borderline | | enlarged.Left ventricle: Left ventricular size is normal with normal wall thickness | | and motion, and normal left ventricular systolic function. The estimated ejection | | fraction is 63%. Grade 1 left ventricular diastolic dysfunction.Aortic root: Aortic | | root is normal.Right Atrium: mildly enlarged.Right ventricle: Right ventricular size is | | normal with normal wall thickness and normal right ventricular systolic | | function.Pericardium: Pericardium is normal.Pulmonary artery: Pulmonary artery is | | normal.Aortic valve: mildly sclerotic with mild insufficiency.Mitral valve: mildly | | thickened with mild regurgitation.Pulmonic valve: Pulmonic valve is normal.Tricuspid | | valve: normal with mild regurgitation and peak velocity of 3 m/s consistent with RV SP | | 43-48 mmHg.Vena cava: The inferior vena cava is normal. There is greater than 50% | | inspiratory collapse of the IVC.IMPRESSIONS:1. Normal LV size and systolic function with | | LVEF 63%.2. Mild aortic, mitral, and tricuspid insufficiency.3. RVSP 43-48 mm | | mercury.4. Borderline to mild biatrial enlargement.5. Compared to patient's prior study | | 2010, no significant changes are noted.Measurements:Height:66Weight: 200Aortic root: 30 | | mmAortic cusp sep: 17 mmLA: 37 mmIVS-diastole: 10 mmIVS-systole: 13 mmLVPW | | diastole: 10 mmLVPW systole: 14 mmLV diameter-diastole: 52 mmLV diameter-systole: 34 | | mmFractional shortenin %PFV aortic valve: m/sMPG mitral valve: mmHgPFV TR | | jet: 3.09 m/Marina/RV PP mmHgLA volume: 54 mLLA index: 28 mL/y5Vhftnd Inflow DT: | | 284 msIVRT: 88 msValsalva: Not neededPWDTI S wave: 8.0 cm/sPWDTI E wave: 6.8 | | cm/sPWDTI A wave: 14.8 cm/sE/A Ratio: 0.46E/E Ratio: 19.52Signed by: Carito Solorio | | MD Nika PhD FACC 11/03/2013 12:17 Road Equipment Operator: Merlin Dolan RDMS | |Tricuspid valve: normal with mild regurgitation and peak velocity of 3 m/s consistent with RV SP 43-48 mmHg. | |Vena cava: The inferior vena cava is normal. There is greater than 50% inspiratory collap se of the IVC. | | | | | |IMPRESSIONS: | |1. Normal LV size and systolic function with LVEF 63%. | |2. Mild aortic, mitral, and tricuspid insufficiency. | |3. RVSP 43-48 mm mercury. | |4. Borderline to mild biatrial enlargement. | |5. Compared to patient's prior study 2010, no significant changes are noted. | | | | | | | | | |Measurements: | |Height:66 | |Weight: 200 | |Aortic root: 30 mm | |Aortic cusp sep: 17 mm | |LA: 37 mm | |IVS-diastole: 10 mm | |IVS-systole: 13 mm | |LVPW diastole: 10 mm | |LVPW systole: 14 mm | |LV diameter-diastole: 52 mm | |LV diameter-systole: 34 mm | |Fractional shortenin % | |PFV aortic valve: m/s | |MPG mitral valve: mmHg | |PFV TR jet: 3.09 m/s | |RA/RV PP mmHg | |LA volume: 54 mL | |LA index: 28 mL/m2 | |Mitral Inflow DT: 284 ms | |IVRT: 88 ms | |Valsalva: Not needed | |PWDTI S wave: 8.0 cm/s | |PWDTI E wave: 6.8 cm/s | |PWDTI A wave: 14.8 cm/s | |E/A Ratio: 0.46 | |E/E Ratio: 19.52 | | | | | | | | | |Signed by: Carito Maher MD PhD [facility] | | 11/03/2013 12:17 | | | | | |Road Equipment Operator: Merlin Dolan RDMS | + + Protein Electrophoresis, Serum (11/03/2013 11:37 AM PDT) + + + + + + | Component | Value | Ref Range | Performed | Pathologist | | | | | At | Signature | + + + + + + | Total | 5.9 (L) | 6.0 - 7.8 g/dL | [facility] | | | Protein | | | [facility] | | | | | | [facility] | | | | | [facility] - | | | | | | [facility]ATORY | | + + + + + + | ELP Albumin | 3.4 (L) | 3.6 - 5.7 g/dL | [facility] | | | | | | [facility] | | | | | | [facility] | | | | | | [facility] - | | | | | | LABORATORY | | + + + + + + | ELP Alpha 1 | 0.2 | 0.1 - 0.2 g/dL | [facility] | | | Globulin | | | [facility] | | | | | | [facility] | | | | | | [facility] - | | | | | | LABORATORY | | + + + + + + | ELP Alpha 2 | 0.7 | 0.4 - 0.9 g/dL | [facility] | | | Globulin | | | [facility] | | | | | | [facility] | | | | | | [facility] - | | | | | | LABORATORY | | + + + + + + | ELP Beta 1 | 0.4 | 0.3 - 0.7 g/dL | [facility] | | | Globulin | | | [facility] | | | | | | [facility] | | | | | | [facility] - | | | | | | LABORATORY | | + + + + + + | ELP Beta 2 | 0.4 | 0.1 - 0.4 g/dL | [facility] | | | Globulin | | | [facility] | | | | | | [facility]ICAL | | | | | | CENTER - | | | | | | LABORATORY | | + + + + + + | ELP Gamma | 0.7 | 0.4 - 1.2 g/dL | [facility] | | | Globulin | | | [facility] | | | | | | [facility] | | | | | | CENTER - | | | | | | LABORATORY | | + + + + + + | ELP Albumin | 58.4 | % | [facility] | | | % | | | [facility] | | | [facility] | | [facility] | | | | | | CENTER - | | | | | | LABORATORY | | + + + + + + | Albumin/Sarah | 1.4 | | [facility] | | | bulin Ratio | | | [facility] | | | | | | [facility] | | | | | | CENTER - | | | | | | LABORATORY | | + + + + + + | ELP Alpha 1 | 4.1 | % | [facility] | | | Globulin % | | | [facility] | | | | | | [facility] | | | | | | CENTER - | | | | | | LABORATORY | | + + + + + + | ELP Alpha 2 | 12.1 | % | [facility] | | | Globulin % | | | [facility] | | | | | | [facility] | | | | | | CENTER - | | | | | | LABORATORY | | + + + + + + | ELP Beta 1 | 7.3 | % | [facility] | | | Globulin % | | | [facility] | | | | | | [facility] | | | | | | CENTER - | | | | | | LABORATORY | | + + + + + + | ELP Beta 2 | 6.1 | % | [facility] | | | Globulin % | | | [facility] | | | | | | [facility]ICAL | | | | | | CENTER - | | | | | | LABORATORY | | + + + + + + | ELP Gamma | 12.0 | % | [facility] | | | Globulin % | | | [facility] | | | | | | MEDICAL | | | | | | CENTER - | | | | | | LABORATORY | | + + + + + + | Interpretat | See Scanned Report | | [facility] | | | ion | Negative for a | | [facility] | | | | monoclonal protein.J. | | MEDICAL | | | | MD Radha11/04/13 | | CENTER - | | | |11/04/13 | | LABORATORY | | + + [...] + | [facility] | [address] | [place], [place] | [phone] | | [facility] | | [address] | | | - LABORATORY | | | | + + + + + | [facility] | [address] | [place], [place] | | | [facility] | | [address] | | | - LABORATORY | | | | + + + + + POCT Urinalysis Dipstick Automated (11/03/2013 9:42 AM PDT) + + + + + [...] | 1.015 | | | | | B[place]soe, | | | | | | UA, POC | | | | | + + + + + + | Blood, UA, | Negative | | | | | POC | | | | | + + + + + + | pH, UA, POC | 8.0 | | | | + + + [...] specimen | | (specimen) | + + Type and Screen (11/03/2013 8:43 AM PDT) + + + + + [...] + | [facility] | [address] | [place], [place] | | | [facility] | | [address] | | | - BLOOD BANK | | | | + + + + + XR Chest AP Portable (11/03/2013 8:35 AM PDT) + + | Specimen | + + | | + + + + + | Narrative | Performed At | + + + | XR CHEST AP PORTABLE 11/03/2013 8:25 AM HISTORY: BACK PAIN. | MISCELANIOUS | | COMPARISON: 10/22/2013, 04/04/2009. Findings: The heart is at the | LAB | | upper limits of normal size. There is atherosclerosis and tortuosity | | | of the aorta. Mediastinum is unremarkable. Central pulmonary | | | vasculature is normal. Hyperinflation of the lungs is present. The | | | lungs are otherwise clear with no evidence for pleural effusion or | | | pneumothorax. There is mild spondylosis. IMPRESSION - | | | Hyperinflation of lungs, suggestive of obstructive lung disease. | | | Dictated and Signed by: Faustino Olivas MD Electronically signed: | | | 11/03/2013 8:51 AM | | + + + + + | Procedure Note | + + | Remington, Rad Results In - 11/03/2013 8:54 AM PDT XR CHEST AP PORTABLE 11/03/2013 8:25 AM | | | | HISTORY: BACK PAIN. | | | | COMPARISON: 10/22/2013, 04/04/2009. | | | | Findings: | | The heart is at the upper limits of normal size. There is atherosclerosis and | | tortuosity of the aorta. Mediastinum is unremarkable. Central pulmonary | | vasculature is normal. Hyperinflation of the lungs is present. The lungs are | | otherwise clear with no evidence for pleural effusion or pneumothorax. There is | | mild spondylosis. | | | | IMPRESSION - | | Hyperinflation of lungs, suggestive of obstructive lung disease. | | | | | | Dictated and Signed by: Faustino Olivas MD | | Electronically signed: 11/03/2013 8:51 AM | + + + +---------+ + + | Performing | Address | City/State/Zipcode | Phone Number | | Organization | | | | + +---------+ + + | MISCELLANEOUS LAB | | | [phone] | + +---------+ + + | MISCELANIOUS LAB | | | [phone] | + +---------+ + + Troponin I (11/03/2013 8:17 AM PDT) + + + + + + | Component | Value | Ref Range | Performed | Pathologist | | | | | At | Signature | + + + + + + | Troponin I | 0.08 (H)Comment: | <0.06 ng/mL | [facility] | | | | Reference | | [facility] | | | | Ranges:0.00-0.06 = | | MEDICAL | | | | NORMAL>0.06 = | | CENTER - | | | | SUSPICIOUS FOR | | LABORATORY | | | | MYOCARDIAL DAMAGE NOTE: | | | | | | Values greater than 0.50 | | | | | | ng/mL have been shown | | | | | | to be strongly | | | | | | associated with acute | | | | | | myocardial infarction. | | | | | | The [employer] | | | | | | Cardiology (ACC) | | | | | | recommends a decision | | | | | | limit of 0.06 ng/mL for | | | | | | this assay. Results | | | | | | greater than 0.06 can | | | | | | reflect a pre-infarct | | | | | | acute coronary syndrome, | | | | | | but can also reflect | | | | | | myocardial necrosis or | | | | | | injury that is not due | | | | | | to coronary artery | | | | | | disease. Some of these | | | | | | causes are sepsis, | | | | | | hypocolemia, atrial | | | | | | fibrillation, heart | | | | | | failure, pulmonary | | | | | | embolism, myocarditis, | | | | | | myocardial contusion, | | | | | | and renal failure. The | | | | | | diagnosis of myocardial | | | | | | infarction should be | | | | | | based on a combination | | | | | | of the patient's | | | | | | clinical presentation | | | | | | and the clinical | | | | | | laboratory test results | | | | | | (especially serial | | | | | | troponin levels). | | | | + + + + + + + + | Specimen | + + | Blood | + + + + + + + | Performing | Address | City/State/[facility] | Phone Number | | Organization | | | | + + + + + | [facility] | [address] | [place] | [phone] | | [facility] | | [address] | | | - LABORATORY | | | | + + + + + | [facility] | [address] | [place] | | | [facility] | | [address] | | | - LABORATORY | | | | + + + + + Basic Metabolic Panel (11/03/2013 8:17 AM PDT) + + + + + + | Component | Value | Ref Range | Performed | Pathologist | | | | | At | Signature | + + + + + + | Na | 134 (L) | 136 - 149 | [facility] | | | | | mmol/L | [facility] | | | | | | MEDICAL | | | | | | CENTER - | | | | | | LABORATORY | | + + + + + + | K | 3.8 | 3.5 - 5.1 | [facility] | | | | | mmol/L | [facility] | | | | | | MEDICAL | | | | | | CENTER - | | | | | | LABORATORY | | + + + + + + | Cl | 101 | 98 - 109 mmol/L | [facility] | | | | | | [facility] | | | | | | MEDICAL | | | | | | CENTER - | | | | | | LABORATORY | | + + + + + + | CO2 | 22 (L) | 24 - 31 mmol/L | [facility] | | | | | | [facility] | | | | | | MEDICAL | | | | | | CENTER - | | | | | | LABORATORY | | + + + + + + | Anion Gap | 11 | 3 - 16 mmol/L | [facility] | | | | | | [facility] | | | | | | MEDICAL | | | | | | CENTER - | | | | | | LABORATORY | | + + + + + + | Glucose | 124 (H) | 70 - 109 mg/dL | [facility] | | | | | | [facility] | | | | | | MEDICAL | | | | | | CENTER - | | | | | | LABORATORY | | + + + + + + | BUN | 11 | 7 - 18 mg/dL | [facility] [...] mL/min/1.73m2 | [facility] | | | [facility]GER | RATE,ESTIMATED | | MEDICAL | | | | mL/min/1.97j7Dgtb than | | CENTER - | | [...] + + | Calcium | 8.6 | 8.3 - 10.5 | [facility] | [...] [address] | [place] | [phone] | | [facility] | | [address] | | | - LABORATORY | | | | + + + + + | [facility] | [address] | [place] | | | [facility] | | [address] | | | - LABORATORY | | | | + + + + + CBC no Differential (11/03/2013 8:17 AM PDT) + + + + + + | Component | Value | Ref Range | Performed | Pathologist | | | | | At | Signature | + + + + + + | WBC | 14.0 (H) | 4.0 - 11.0 K/uL | [facility] | | | | | | [facility] | | | | | | MEDICAL | | | | | | CENTER - | | | | | | LABORATORY | | + + + + + + | RBC | 1.98 (L) | 3.70 - 5.20 | [facility] | | | | | M/uL | [facility] | | | | | | MEDICAL | | | | | | CENTER - | | | | | | LABORATORY | | + + + + + + | Hemoglobin | 6.5 (LL)Comment: Alert | 11.5 - 16.0 | [facility] | | | | Value: Clinical Provider | g/dL | [facility] | | | | notification at Nurses | | MEDICAL | | | | discretion. | | CENTER - | | | | | | LABORATORY | | + + + + + + | Hematocrit | 19.4 (LL)Comment: | 34.0 - 47.0 % | [facility] | | | | Critical Result called | | [facility] | | | | to and read back by | | MEDICAL | | | | Ryne in ER on 11/03/2013 | | CENTER - | | | | at 8:32 by Merlin Ng. | | LABORATORY | | | | | | | | + + + + + + | MCV | 98.0 | 83.0 - 101.0 fL | [facility] | | | | | | [facility] | | | | | | MEDICAL | | | | | | CENTER - | | | | | | LABORATORY | | + + + + + + | MCH | 33.1 | 28.0 - 35.0 pg | [facility] | | | | | | [facility] | | | | | | MEDICAL | | | | | | CENTER - | | | | | | LABORATORY | | + + + + + + | MCHC | 33.7 | 32.0 - 36.0 | [facility] | | | | | g/dL | [facility] | | | | | | MEDICAL | | | | | | CENTER - | | | | | | LABORATORY | | + + + + + + | RDW-CV | 13.7 | <15.0 % | [facility] | | | | | | [facility] | | | | | | MEDICAL | | | | | | CENTER - | | | | | | LABORATORY | | + + + + + + | Platelet | 411 | 140 - 440 K/uL | [facility] | | | Count | | | [facility] | | | | | | MEDICAL | | | | | | CENTER - | | | | | | LABORATORY | | + + + + + + | MPV | 8.9 | fL | [facility] | | | [...] | + + + + + | [facility] | [address] | [place], [place] | [phone] | | [facility] | | [address] | | | - LABORATORY | | | | + + + + + | [facility] | [address] | [place], [place] | | | [facility] | | [address] | | | - LABORATORY | | | | + + + + + documented in this encounter Visit Diagnoses + + | Diagnosis | + + | GI bleed Hemorrhage of gastrointestinal tract, unspecified | + + documented in this encounter
--- OUTSIDE RECORDS SUMMARY | ~2019-04-12 | XMS | Encounter Summary ---
Demographics + + + | Address | [address] | | | [place] [address] | + + + | Home Phone [...] + | Author | [facility] | | | and [place] | + + + | Organization | [facility] | | | and [place] | + + + | Address | Unknown | + + + | Phone | Unavailable | + + + Support + + + + + | Name | Relationship | Address | Phone | + + + + + | Osmin Jackson | ECON | [address] | | | | | [place] [address] | | + + + + + | Hunter Jackson | ECON | [place] | | + + + + + | Wes Jackson | ECON | [place], [place] | | + + + + + | Oziel Jackson | ECON | [place], [place] | | + + + + + Care Team Providers + +------+ + | Care Outside Sales Representative Insurance Name | Role | Phone | + [...] + + | 09/17/ | Telephone | [facility] | Ulysses Jensen, | Other | | 2016 | | ORTHOPEDIC SURGERY | [address] [facility] | | | | | [address] | [place] | | | | | [place] | [address] | | | | | [address] | | | | | | [phone] | | | +--------+ + + + [...] | | | | | | [place] [address] | | | | | | [phone] | | | | | | | | +--------+---------+ + + + documented as of this encounter Visit Diagnoses Not on filedocumented in this encounter"
--- OUTSIDE RECORDS SUMMARY | ~2019-04-12 | XMS | Encounter Summary ---
Demographics + + + | Address | [address] | | | [place] [address] | + + + | Home Phone | | + + + | Preferred Language | Unknown | + + + | Marital Status | | + + + | Methodist Affiliation | Unknown | + + + | Race | Unknown | + + + | Ethnic Group | Unknown | + + + Author + + + | Author | [facility] | | | and [place] | + + + | Organization | [facility] | | | and [place] | + + + | Address | Unknown | + + + | Phone | Unavailable | + + + Support + + + + + | Name | Relationship | Address | Phone | + + + + + | Osmin Jackson | ECON | [address] | | | | | [place] [address] | | + + + + + | Hunter Jackson | ECON | [place] | | + + + + + | Wes Jackson | ECON | [place], [place] | | + + + + + | Oziel Jackson | ECON | [place], [place] | | + + + + + Care Team Providers + +------+ + | Care Onboarding Specialist Name | Role | Phone | [...] + + | Closed | Specialty | Podiatry | Diagnoses | [place], | [place], | | | Services | | Right foot | Rodolfo Reilly MD | Eros Moreno, DPM | | | Required | | pain | [address] | [address] | | | | | | [address] [place] | [address] [place] | | | | | | [place], [place] | [place] | | | | | | [address] | [address] | | | | | | Phone: | Phone: | | | | | | [phone] | [phone] | | | | | | Fax: | Fax: | | | | | | [phone] | [phone] | +--------+ + + + + + Reason for Visit + + + | Reason | Comments | + + + | Toe Pain | right | + + + Encounter Details +--------+---------+ + + + | Date | Type | Department | Care Team | Description | +--------+---------+ + + + | 12/24/ | Office | [facility] | Rodolfo Cruz, | Back pain (Primary | | 2013 | Visit | MEDICINE [facility] | [address] | Dx); Anemia; Right | | | | [address] [place] | [place] | foot pain; | | | | [place] [address] | [id number] | Osteoarthritis | | | | [phone] | | | +--------+---------+ + + + [...] + | Blood Pressure | 130/62 | 12/24/2013 9:45 AM | | | | | PDT | | + + + + + | Pulse | 74 | 12/24/2013 9:45 AM | | | | | PDT | | + + + + + | Temperature | 37.1 C (98.7 F) | 12/24/2013 9:45 AM | | | | | PDT | | + + + + + | Respiratory Rate | 18 | 12/24/2013 9:45 AM | | | | | PDT | | + + + + + | Oxygen Saturation | 98% | 12/24/2013 9:45 AM | | | | | PDT | | + + + + + | Inhaled Oxygen | - | - | | | Concentration | | | | + + + + + | Weight | 87.5 kg (193 lb) | 12/24/2013 9:45 AM | | | | | PDT | | + + + + + | Height | - | - | | + + + + + | Body Mass Index | 31.15 | 12/08/2013 11:23 AM | | | | | PDT | | + + + + + documented in this encounter Progress Rodolfo Huff MD - 12/24/2013 10:17 AM PDTFormatting of this note might be different f rom the original. Subjective: Patient ID: Soumya Jackson is a 78 y.o. female. HPI There is pain in the heel of the right foot. There is some pain with prolonged walking. New left wrist pain, She is on glucosamine. She takes one hydrocodone at night for this. She has not taken aspirin since her recent GI blood. She can take an occasional regular ty lenol during day. Recent GI bleed. Some weakness, No recent bloody or black stools. She is now on iron. She was subsequently hosp and transfused. She is no longer having any bloody or black stoo ls. She is not longer taking her voltaren. Her radiating back pain which started in September is now resolved. She still gets an occasional once a day twinge under the right rib cage. Anemia, She is on iron. There is no gross blood in the stool or urine. Possible osseous lytic lesions. Past Medical History: Anemia UGI bleed Pulmonary nodules Fibrous dysplasia ABDOMINAL PAIN, RIGHT UPPER QUADRANT (ICD-789.01) HERPES [...] ARB's high cholesterol Hepatitis A ? 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 HEENT: Neg ear pain, No nosebleeds,no [...] no difficulty urinating. No Bloody urine Musculoskeletal: Neg for myalgias, no back pain, no joint swelling and No ar thralgias. Some joint pain Skin: Neg for color change,no [...] motion Skin, no gross lesions Assessment: 1. Back pain HYDROcodone-acetaminophen (NORCO) 7.5-325 mg per tablet 2. Anemia 3. Right foot pain 4. Osteoarthritis Plan: Xray right foot. Refer to Podiatry. Continue hydrocodone prn once daily. Anemia is impro ti. Repeat CBC 2 months., documented in this encounter Plan of Treatment [...] [address] | | | | | | [place], | | | | | | [place] [address] | | | | | | [phone] | | | | | | | | +--------+---------+ + + + + + +--------+ + + | Name | Type | Priori | Associated Diagnoses | Order Schedule | | | | ty | | | + + +--------+ + + | Ambulatory referral | Outpatient | Routin | Right foot pain | Ordered: 12/24/2013 | | to Podiatry | Referral | e | | | + + +--------+ + + documented as of this encounter Results XR Foot Right 3 [...] + | Remington, Rad Results In - 12/24/2013 1:03 PM PDT [...] + | MIS[facility]ANEOUS LAB | | | [phone] | + +---------+ + + | MISCELANIOUS LAB | | | [phone] | + +---------+ + + documented in this encounter Visit Diagnoses + + | Diagnosis | + + | Back pain - Primary Backache, unspecified | + + | Anemia Anemia, unspecified | + + | Right foot pain Pain in limb | + + | Osteoarthritis Osteoarthrosis, unspecified whether generalized or localized, | | unspecified site | + + documented in this encounter"
--- OUTSIDE RECORDS SUMMARY | ~2019-04-12 | XMS | Encounter Summary ---
Demographics + + + | Address | [address] | | | [place] [address] | + + + | Home Phone | | + + + | Preferred Language | Unknown | + + + | Marital Status | | + + + | Alevism Affiliation | Unknown | + + + | Race | Unknown | + + + | Ethnic Group | Unknown | + + + Author + + + | Author | [facility] | | | and [place] | + + + | Organization | [facility] | | [...] [place] | | | | | [place] [address] | | + + + + + | Hunter Jackson | ECON | [place] | | + + + + + | Wes Jackson | ECON | [place], [place] | | + + + + + | Oziel Jackson | ECON | [place], [place] | | + + + + + Care Team Providers + +------+ + | Care Recruitment Internship Name | Role | Phone | + +------+ + | Gunderson, Ekllie PA | PCP | | + +------+ [...] | disease; Epistaxis; | | | | [facility], | [place], | [place]; [place] | | | | [place] [address] | [place] [address] | hypertension with | | | | [phone] | [phone] | goal blood pressure | | | | | | less than 130/80; | | | | | | Coronary artery | | | | | | disease involving | | | | | | kluti kaah coronary | | | | | | artery of kl[place] | | | | | | heart with unstable | | | | | | angina pectoris | | | | | | ([facility]); Chest pain, | | | | | [...] cervical Cervical radiculopathy Coronary artery disease involving kl[place] coronary artery of [place] heart with unstable angina pectoris Stress hyperglycemia [...] RESULTS reviewed during visit today primarily from [facility]: LIPID Lab Results Component Value Date CHOL [...] BNPEX 63 09/18/2016 I reviewed records from [facility] for office visit on 04/2018 whic h is summarized in the HPI. RESULTS- I reviewed reports from [facility]: No results found. Above data and testing is reviewed this visit; testing below is historical data unless othe rwise specified. ASSESSMENT: 1. Coronary artery disease A. Seen at [facility] they had EKG and sent her home stating it was GERD B. [facility]. Sh e was schedule for stress test and discharged home. C. Stress Test 05/16/16, is maximal asymptomatic stress test, [facility] er very poor function status, [...] central AI, no , trace TR, trace RI, normal aorta other than mild calcification at [...] is in class II of th e [employer] functional class. There are no [...] this chart may have been created with [employer] voice recognition software. Occasi onal wrong-word or [...] [place] | | | | | | [address] | | | | | | | | +--------+---------+ + + + | 11/21/ | Office | Cardiology | Yesi, | | | 2019 | Visit | | JOSE ALBERTO Linder [address] | | | | | | [place], | | | | | | [place] [address] | | | | | | [phone] | | | | | | | [...] involving | | | | | | kl[place] ka[place] coronary | | | | | | artery of kl[place] ka[place] | | | | | | heart with unstable | | | | | | angina pectoris | | | | | | ([facility]) Chest pain, | | | | | [...] MD | | | | | | ([id number]) on 06/01/2018 | | | | | [...] + + | Coronary artery disease involving kluti kaah coronary artery of [place] ka[place] heart with unstable | | angina pectoris (HCC) | + + | Chest pain, unspecified type | + + | Hyperlipidemia, mixed Mixed hyperlipidemia | + + documented in this encounter
--- OUTSIDE RECORDS SUMMARY | ~2019-04-12 | XMS | Encounter Summary ---
Demographics + + + | Address | [address] | | | [place] [address] | + + + | Home Phone | | + + + | Preferred Language | Unknown | + + + | Marital Status | | + + + | Nondenominational Affiliation | Unknown | + + + | Race | Unknown | + + + | Ethnic Group | Unknown | + + + Author + + + | Author | [facility] | | | and [place] | + + + | Organization | [facility] | | [...] | | | | | [place] [address] | | + + + + + | Hunter Jackson | ECON | [place] | | + + + + + | Wes Jackson | ECON | [place], [place] | | + + + + + | Oziel Jackson | ECON | [place], [place] | | + + + + + Care Team Providers + +------+ + | Care Wall Taper Name | Role | Phone | + +------+ + | Rodolfo Cruz MD | PCP | | + +------+ + Encounter Details +--------+ + + + + | Date | Type | Department | Care Team | Description | +--------+ + + + + | 11/30/ | Abstract | [facility] | Rodolfo Cruz, | | | 2013 | | MEDICINE [address] [place] [address] | MD [address] | | | | | [facility] | [place] | | | | | [place] [address] | [address] | | | | | [phone] | | | +--------+ + + + [...] | | | | | | [place], [place] | | | | | | [address] | | | | | | | | +--------+---------+ + + + | 11/21/ | Office | Cardiology | Yesi, | | | 2019 | Visit | | JOSE ALBERTO [address]inder [address] | | | | | | [place], | | | | | | [place] [address] | | | | | | [phone] | | | | | | | | +--------+---------+ + + + documented as of this encounter Procedures + +--------+ + + + | Procedure Name | Priori | Date/Time | Associated Diagnosis | Comments | | | ty | | | | + +--------+ + + + | [facility] EXTERNAL IMAGE | Routin | 11/08/2013 | | Results for this | | | e | | | procedure are in the | | | | | | results section. | + +--------+ + + + documented in this encounter Results [facility] External Image (11/08/2013) + + + + + + | Component | Value | Ref Range | Performed | Pathologist | | | | | At | Signature | + + + + + + | EXT | 2-Benign finding(s) | | | | | MAMMOGRAPHY | | | | | + + + + + + documented in this encounter Visit Diagnoses Not on filedocumented in this encounter"
--- OUTSIDE RECORDS SUMMARY | ~2019-04-12 | XMS | Encounter Summary ---
Demographics + + + | Address | [address] | | | [place] [address] | + + + | Home Phone [...] | Author | [facility] | | | and [place] | + + + | Organization | [facility] | | | and [place] | + + + | Address | Unknown | + + + | Phone | Unavailable | + + + Support + + + + + | Name | Relationship | Address | Phone | + + + + + | Osmin Jackson | ECON | [address] | | | | | [place] [address] | | + + + + + | Hunter Jackson | ECON | [place] | | + + + + + | Wes Jackson | ECON | [place], [place] | | + + + + + | Oziel Jackson | ECON | [place], [place] | | + + + + + Care Team Providers + +------+ + | Care Vacuum Worker Name | Role | Phone | [...] [facility] | | | | | Chest pain, | Yesi, | Medicine | | | | | unspecified | JOSE ALBERTO Linder | [address] [place] | | | | | type | [address] | [place], | | | | | Procedures | [place] | [place] | | | | | [place] Nuclear | [place], | [address] | | | | | Stress Test | [place] | Phone: | | | | | (Vasodilator | [address] | [phone] | | | | | ) CHG | Phone: | Fax: | | | | | MYOCARDIAL | [phone] | [phone] | | | | | SPECT | Fax: | | | | | | MULTIPLE | [phone] | | | | | | STUDIES DC | | | | | | | CV STRS TST | | | | | | | XERS&/OR RX | | | | | | | CONT ECG W/O | | | | | | | I&R DC | | | | | | | [...] + + | 10/16/ | Hospital | [facility] | [place], | Chest pain, | | 2018 | Encounter | MED CTR NUCLEAR | Niyah, PLATE HANGER [address] | unspecified type | | | | MEDICINE [address] | [place], | | | | | [place], | [place] [address] | | | | | [place] [address] | [phone] | | | | | [phone] | | | +--------+ + + + [...] STREET[place] | | | | | | [address] | | | | | | | | +--------+---------+ + + + | 11/21/ | Office | Cardiology | Yesi, | | | 2020 | Visit | | OJSE ALBERTO Linder [address] | | | | | | [place], | | | | | | [place] [address] | | | | | | [phone] | | | | | | | [...] encounter Results [place] Nuclear Stress Test (Vasodilator) (10/16/2017 2:55 PM PDT) + + | Specimen | + + | | + + + + + | Impressions | Performed At | + + + | 1. Regadenoson EKG is negative. 2. Normal Regadenoson | [facility] | | Sestamibi myocardial perfusion study with a normal left ventricular | | | size and wall thickness. Evidence of inferior wall soft tissue | | | attenuation. Preserved left ventricular systolic function. LVEF | | | by gated SPECT 76 %. Signed by: Irina Simms MD [facility] | | | 10/16/2017, 14:56 | | + + + + + --+ | Narrative | Performed At | + + --+ | | [facility] | | NUCLEAR MEDICINE STRESS TEST REPORT Patient Name: Soumya Jackson | | | Study Date: 10/16/2017 Primary Care Provider: FLORA Morgan MRN: | | | [id number] : 1935 Age: 82 y.o. Gender: female | | | CLINICAL HISTORY/DIAGNOSIS: Chest pain REGADENOSON SESTAMIBI | | | STRESS TESTIndication: chest pain Procedure: In the supine position, | | | .4 mg of Regadenoson was infused intravenously over 10 seconds. | | | Blood pressure and EKG were monitored every 1 minute. 5 mL of | | | normal saline was utilized to flush the IV line. Twenty seconds | | | later, 10.6 mCi sestamibi intravenous injection. SPECT myocardial | | | perfusion imaging was acquired with wall motion analysis. Rest | | | imaging was performed using 30.8 mCi Sestamibi intravenous injection. | | | Repeated SPECT myocardial perfusion imaging was acquired with wall | | | motion analysis. . Hemodynamics: Heart rate baseline 56 beats per | | | minute, peak 86 beats per minute. Blood pressure baseline 129/58 | | | mmHg, peak 140/61 mmHg. EKG baseline underlying sinus rhythm. | | | Normal EKG. Peak unchanged. Side Effects: None. Arrhythmia: | | | None. Regadenoson Sestamibi Myocardial Perfusion Imaging Result: | | | The Regadenoson Sestamibi tomographic images, reviewed without the | | | attenuation compensation resolution, revealed a normal myocardial | | | perfusion pattern as seen in short axis, vertical long axis, and | | | horizontal long axis projections. The left ventricular cavity is | | | normal. The rest imaging is also normal. Gated SPECT reveals | | | a normal left ventricular wall thickness and motion. Preserved left | | | ventricular systolic function. LVEF by gated SPECT is 76 %. | | | | | |Hemodynamics: | | |Heart rate baseline 56 beats per minute, peak 86 beats per minute. Blood | | |pressure baseline 129/58 mmHg, peak 140/61 mmHg. EKG baseline underlying | | |sinus rhythm. Normal EKG. Peak unchanged. | | | | | |Side Effects: None. | | | | | |Arrhythmia: None. | | | | | |Regadenoson Sestamibi Myocardial Perfusion Imaging Result: | | | The Regadenoson Sestamibi tomographic images, reviewed without the | | |attenuation compensation resolution, revealed a normal myocardial | | |perfusion pattern as seen in short axis, vertical long axis, and | | |horizontal long axis projections. The left ventricular cavity is normal. | | |The rest imaging is also normal. | | | | | | Gated SPECT reveals a normal left ventricular wall thickness and motion. | | |Preserved left ventricular systolic function. LVEF by gated SPECT is 76 %. | | | | | | | | + + --+ + +---------+ + + | Performing | Address | City/State/Zipcode | Phone Number | | Organization | | | | + +---------+ + + | [facility] | | | | + +---------+ + + documented in this encounter Visit Diagnoses + + | Diagnosis | + + | Chest pain, unspecified type | + + documented in this encounter Administered Medications + +--------+ + +------+------+ | Medication Order | MAR | Action | Dose | Rate | Site | | | Action | Date | | | | + +--------+ + +------+------+ | technetium TC-99M sestamibi | Given | 10/17/19 | 10.6 | | | | (CARDIOLITE) injection 10.6 | | 18 9:49 | millicur | | | | millicurie 10.6 millicurie, | | AM PDT | ies | | | | Intravenous, ONCE PRN, Other, | | | | | | | Starting [facility] 10/16/17 at 0947, For | | | | | | | 1 dose, Nuclear Medicine | | | | | | + +--------+ + +------+------+ +---+---+ | | | +---+---+ documented in this encounter"
--- OUTSIDE RECORDS SUMMARY | ~2019-04-12 | XMS | Encounter Summary ---
Demographics + + + | Address | [address] | | | [place] [address] | + + + | Home Phone | | + + + | Preferred Language | Unknown | + + + | Marital Status | | + + + | Hinduism Affiliation | Unknown | + + + | Race | Unknown | + + + | Ethnic Group | Unknown | + + + Author + + + | Author | [facility] | | | and [place] | + + + | Organization | [facility] | | | and [...] | | | | | [place] [address] | | + + + + + | Hunter Jackson | ECON | [place] | | + + + + + | Wes Jackson | ECON | [place], [place] | | + + + + + | Oziel Jackson | ECON | [place], [place] | | + + + + + Care Team Providers + +------+ + | Care Pipe Caulker Name | Role | Phone | [...] + + | 02/09/ | Office | [facility] | Ulysses Jensen, | Rotator cuff | | 2013 | Visit | ORTHOPEDIC SURGERY | MD Danny PARHAM | syndrome of right | | | | [address] | [place] | shoulder (Primary | | | | [place] | [address] | Dx); [facility] arthritis | | | | [address] | | | | | | [phone] | | | +--------+---------+ + + + [...] STREET[place] | | | | | | [address] | | | | | | | | +--------+---------+ + + + | 11/21/ | Office | Cardiology | [place], | | | 2020 | Visit | | JOSE ALBERTO Linder [address] | | | | | | [place], | | | | | | [place] [address] | | | | | | [phone] | | | | | | | [...]
--- OUTSIDE RECORDS SUMMARY | ~2019-04-12 | XMS | Encounter Summary ---
Demographics + + + | Address | [address] | | | [place] [address] | + + + | Home Phone | | + + + | Preferred Language | Unknown | + + + | Marital Status | | + + + | Gnosticism Affiliation | Unknown | + + + | Race | Unknown | + + + | Ethnic Group | Unknown | + + + Author + + + | Author | [facility] | | | and [place] | + + + | Organization | [facility] | | [...] | | | | | [place] [address] | | + + + + + | Hunter Jackson | ECON | [place] | | + + + + + | Wes Jackson | ECON | [place], [place] | | + + + + + | Oziel Jackson | ECON | [place], [place] | | + + + + + Care Team Providers + +------+ + | Care Mechanical Drawing Teacher Name | Role | Phone | [...] Description | +--------+--------+ + + + | 11/21/ | Refill | [facility] | Rodolfo Cruz, | Medication Refill | | 2015 | | MEDICINE [address] | [address] | | | | | [place] | [place] | | | | | [place] [address] | [address] | | | | | [phone] | | | +--------+--------+ + + + [...] | | | | | | [place] [address] | | | | | | [phone] | | | | | | | | +--------+---------+ + + + documented as of this encounter Visit Diagnoses + + | Diagnosis | + + | Insomnia - Primary Insomnia, unspecified | + + documented in this encounter"
--- OUTSIDE RECORDS SUMMARY | ~2019-04-12 | XMS | Encounter Summary ---
Demographics + + + | Address | [address] | | | [place] [address] | + + + | Home Phone [...] | [facility] | | | and [place] | + + + | Organization | [facility] [...] [place] | | | | | [place] [address] | | + + + + + | Hunter Jackson | ECON | [place] | | + + + + + | Wes Jackson | ECON | [place], [place] | | + + + + + | Oziel Jackson | ECON | [place], [place] | | + + + + + Care Team Providers + +------+ + | Care Manager Grant Name | Role | Phone | + +------+ + | Gunderson, Kellie PA | PCP | | + +------+ + Reason for Visit + + + | Reason | Comments | + + + | Injections | Follow UP Right Shoulder and Right [facility] injection | + + + Follow Up (Routine) + + + + + + + | Status | Reason | Specialty | Diagnoses / | Referred By | Referred To | | | | | Procedures | Contact | Contact | + + + + + + + | Authorized | Specialty | Orthopedic | Diagnoses | Neptali, | Mikey, | | | Services | Surgery | Rotator | FLORA Hopkins | Ulysses Rios MD | | | Required | | cuff tear | [address] | [address] | | | | | arthropathy | [place], | [place], | | | | | of right | [address] | [place] [address] | | | | | shoulder | [place], | Phone: | | | | | Follow Up | [place] [address] | [phone] | | | | | Right | Phone: | Fax: | | | | | Shoulder and | [phone] | [phone] | | | | | Right [facility] | Fax: | | | | | | Injection | [phone] | | | | | | Last | | | | | | | Inj:11/19/19 | | | | | | | 19 *NFN*-kkn | | | | | | | Procedures | | | | | | | Follow Up | | | + + + + + + + Encounter Details +--------+---------+ + + + | Date | Type | Department | Care Team | Description | +--------+---------+ + + + | 10/21/ | Office | [facility] [place] | Ulysses Jensen, | Arthritis of | | 2019 | Visit | ORTHOPEDIC SURGERY | MD [address] [facility] | carpometacarpal | | | | [address] [facility] | [place] | ([facility]) joint of right | | | | [place] | [address] | thumb (Primary Dx); | | | | [address] | | Rotator cuff tear | | | | [phone] | | arthropathy of right | | [...] Weight | 86.6 kg (191 lb) | 03/01/2019 1:01 PM | | | | | PDT | | + + + + + | Height | 165.1 cm (5' 5") | 03/01/2019 1:01 PM | | | | | PDT | | + + + + + | Body Mass Index | 31.78 | 03/01/2019 1:01 PM | | | | | PDT | | + + + + + documented in this encounter Progress Notes Ulysses Jensen MD - 03/01/2019 1:15 PM PDTPatient returns to have right shoulder injecti on and right first [facility]c joint injection She has irreparable rotator cuff tear on the right and isn't interested in pursuing a rever se 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 Under sterile conditions today I injected the right shoulder subacromial space with kenalog 40mg and naropin 3cc Under sterile conditions I then injected her right first cmc joint with celestone 1/2cc and 1/2cc of naropin She will return as needed documented in [...] [place]REET[place] | | | | | | [address] | | | | | | | | +--------+---------+ + + + | 11/21/ | Office | Cardiology | Yesi, | | | 2019 | Visit | | JOSE ALBERTO Linder [address] | | | | | | [place], | | | | | | [place] [address] | | | | | | [phone] | | | | | | | [...] + | betamethasone (CELESTONE | Given | 03/01/20 | 3 mg | | Hand-Rig | | SOLUSPAN) injection 3 mg 3 mg, | | 19 2:23 | | | ht | | Intra-articular, ONCE, Mon | | PM PDT | | | | | 03/01/19 at 1445, For 1 dose, | | | | | | | Shake well. Not for IV use., | | | | | | + +--------+ +------+------+ + +---+---+ | | | +---+---+ + +-------+ +-------+---+ + | triamcinolone acetonide | Given | 03/01/20 | 40 mg | | Shoulder | | (KENALOG-40) 40 mg/mL injection | | 19 2:24 | | | -Right | | 40 mg 40 mg, Intra-articular, | | PM PDT | | | | | ONCE, 03/01/19 at 1445, For 1 | | | | | | | dose, Shake well. Not for IV | | | | | | | use., | | | | | | + +-------+ +-------+---+ + +---+---+ | | | +---+---+ documented in this encounter
--- OUTSIDE RECORDS SUMMARY | ~2019-04-12 | XMS | Encounter Summary ---
Demographics + + + | Address | [address] | | | [place] [address] | + + + | Home Phone | | + + + | Preferred Language | Unknown | + + + | Marital Status | | + + + | Yarsani Affiliation | Unknown | + + + | Race | Unknown | + + + | Ethnic Group | Unknown | + + + Author + + + | Author | [facility] | | | and [place] | + + + | Organization | [facility] | [...] | | | | | [place] [address] | | + + + + + | Hunter Jackson | ECON | [place] | | + + + + + | Wes Jackson | ECON | [place], [place] | | + + + + + | Oziel Jackson | ECON | [place], [place] | | + + + + + Care Team Providers + +------+ + | Care Associate Professor Of Library Science Name | Role | Phone | + +------+ + | Rodolfo Cruz MD | PCP | | + +------+ + Reason for Visit + + + | Reason | Comments | + + + | Appointment | CT | + + + Encounter Details +--------+ + + + + | Date | Type | Department | Care Team | Description | +--------+ + + + + | 08/10/ | Telephone | [facility] | Rodolfo Cruz, | Appointment (CT ) | | 2015 | | MEDICINE [address] [place] [address] | MD [address] | | | | | [place] | [place] | | | | | [place] [address] | [address] | | | | | [phone] | | | +--------+ + + + [...] STREET[place] | | | | | | [address] | | | | | | | | +--------+---------+ + + + | 11/21/ | Office | Cardiology | Yesi, | | | 2019 | Visit | | JOSE ALBERTO Linder [address] | | | | | | [place] | | | | | | [place] [address] | | | | | | [phone] | | | | | | | | +--------+---------+ + + + documented as of this encounter Visit Diagnoses Not on filedocumented in this encounter"
--- OUTSIDE RECORDS SUMMARY | ~2019-04-12 | XMS | Encounter Summary ---
Demographics + + + | Address | [address] | | | [place] [address] | + + + | Home Phone | | + + + | Preferred Language | Unknown | + + + | Marital Status | | + + + | Orthodoxy Affiliation | Unknown | + + + | Race | Unknown | + + + | Ethnic Group | Unknown | + + + Author + + + | Author | [facility] | | | and [place] | + + + | Organization | [facility] | | [...] | | | | | [place] [address] | | + + + + + | Hunter Jackson | ECON | [place] | | + + + + + | Wes Jackson | ECON | [place], [place] | | + + + + + | Oziel Jackson | ECON | [place], [place] | | + + + + + Care Team Providers + +------+ + | Care Gardener Name | Role | Phone | + +------+ + | Rodolfo Cruz MD | PCP | | + +------+ + Reason for Visit +--------+ + | Reason | Comments | +--------+ + | Other | injections | +--------+ + Encounter Details +--------+ + + + + | Date | Type | Department | Care Team | Description | +--------+ + + + + | 11/24/ | Telephone | [facility] | Yany, | Other (injections) | | 2014 | | PHYSIATRY [address] | [address] | | | | | [place], | [place] [facility], | | | | | [place] [address] | [place] [address] | | | | | [phone] | [phone] | | | | | | | [...] | | | | | | [place] [address] | | | | | | [phone] | | | | | | | | +--------+---------+ + + + documented as of this encounter Visit Diagnoses Not on filedocumented in this encounter"
--- OUTSIDE RECORDS SUMMARY | ~2019-04-12 | XMS | Encounter Summary ---
Demographics + + + | Address | [address] | | | [place] [address] | + + + | Home Phone [...] | Author | [facility] | | | and [place] | + + + | Organization | [facility] | [...] | | | | | [place] [address] | | + + + + + | Hunter Jackson | ECON | [place] | | + + + + + | Wes Jackson | ECON | [place], [place] | | + + + + + | Oziel Jackson | ECON | [place], [place] | | + + + + + Care Team Providers + +------+ + | Care Water And Sewer Systems Supervisor Name | Role | Phone | + +------+ + | Rodolfo Cruz MD | PCP | | + +------+ + Reason for Visit + + + | Reason | Comments | + + + | Chest Pain | Call to pt to verify | + + + Encounter Details +--------+ + + + + | Date | Type | Department | Care Team | Description | +--------+ + + + + | 10/21/ | Telephone | [facility] | Rodolfo Cruz, | Chest Pain (Call to | | 2013 | | MEDICINE [address] | [address] | pt to verify) | | | | [address] | [place] | | | | | [place] [address] | [address] | | | | | [phone] | | | +--------+ + + + [...] | | | | | | [place] [address] | | | | | | [phone] | | | | | | | | +--------+---------+ + + + documented as of this encounter Visit Diagnoses + + | Diagnosis | + + | Thoracic sprain and strain, initial encounter - Primary | + + documented in this encounter"
--- OUTSIDE RECORDS SUMMARY | ~2019-04-12 | XMS | Encounter Summary ---
Demographics + + + | Address | [address] | | | [place] [address] | + + + | Home Phone | | + + + | Preferred Language | Unknown | + + + | Marital Status | | + + + | Scientologist Affiliation | Unknown | + + + | Race | Unknown | + + + | Ethnic Group | Unknown | + + + Author + + + | Author | [facility] | | | and [place] | + + + | Organization | [facility] | | | and [place] | + + + | Address | Unknown | + + + | Phone | Unavailable | + + + Support + + + + + | Name | Relationship | Address | Phone | + + + + + | Osmin Jackson | ECON | [address] | | | | | [place] [address] | | + + + + + | Hunter Jackson | ECON | [place] | | + + + + + | Wes Jackson | ECON | [place], [place] | | + + + + + | Oziel Jackson | ECON | [place], [place] | | + + + + + Care Team Providers + +------+ + | Care Material Reclaimer Name | Role | Phone | + [...] Dx); | | | | [address] | [place] [address] | Rotator cuff | | | | [place] | [address] | syndrome of right | | | | [address] | | shoulder | | | | [phone] | | | +--------+---------+ + + + [...] [place] | | | | | | [address] | | | | | | | | +--------+---------+ + + + | 11/21/ | Office | Cardiology | Yesi, | | | 2019 | Visit | | JOSE ALBERTO Linder [address] | | | | | | [place], | | | | | | [place] [address] | | | | | | [phone] | | | | | | | [...] PDT | | | | | ONCE, [facility] 11/30/15 at 1200, For 1 | | | | | | | dose, Shake well. Not for IV | | | | | | | use., | | | | | | + +-------+ +-------+---+ + +---+---+ | | | +---+---+ documented in this encounter
--- OUTSIDE RECORDS SUMMARY | ~2019-04-12 | XMS | Encounter Summary ---
Demographics + + + | Address | [address] | | | [place] [address] | + + + | Home Phone | | + + + | Preferred Language | Unknown | + + + | Marital Status | | + + + | Roman Catholic Affiliation | Unknown | + + + | Race | Unknown | + + + | Ethnic Group | Unknown | + + + Author + + + | Author | [facility] | | | and [place] | + + + | Organization | [facility] | | [...] | | | | | [place] [address] | | + + + + + | Hunter Jackson | ECON | [place] | | + + + + + | Wes Jackson | ECON | [place], [place] | | + + + + + | Oziel Jackson | ECON | [place], [place] | | + + + + + Care Team Providers + +------+ + | Care Face Hardener Name | Role | Phone | + +------+ + PCP | Unavailable | + +------+ + Encounter Details +--------+ + + + + | Date | Type | Department | Care Team | Description | +--------+ + + + + | 07/03/ | Hospital | [facility] | | | | 2010 | Encounter | MED CTR XRAY [address] | | | | | | [place] | | | | | | [place] [address] | | | | | | [phone] | | | +--------+ + + + [...] [address]REET[place] | | | | | | [address] | | | | | | | | +--------+---------+ + + + | 11/21/ | Office | Cardiology | Yesi, | | | 2019 | Visit | | JOSE ALBERTO Linder [address] | | | | | | [place], | | | | | | [place] [address] | | | | | | [phone] | | | | | | | | +--------+---------+ + + + documented as of this encounter Visit Diagnoses Not on filedocumented in this encounter"
--- OUTSIDE RECORDS SUMMARY | ~2019-04-12 | XMS | Encounter Summary ---
Demographics + + + | Address | [address] | | | [place] [address] | + + + | Home Phone [...] | Author | [facility] | | | and [place] | + + + | Organization | [facility] | | | and [place] | + + + | Address | Unknown | + + + | Phone | Unavailable | + + + Support + + + + + | Name | Relationship | Address | Phone | + + + + + | Osmin Jackson | ECON | [address] | | | | | [place] [address] | | + + + + + | Gisele Jackson | ECON | [place] | | + + + + + | Wes Jackson | ECON | [place], [place] | | + + + + + | Oziel Jackson | ECON | [place], [place] | | + + + + + Care Team Providers + +------+ + | Care Pediatric Radiologist Name | Role | Phone | + [...] | | Services | Therapy | Chronic low | Bal | [place] | | | Required | | back pain | Harsha Moreno MD | HOSPITAL | | | | | DDD | [address] | [address] | | | | | (degenerativ | [address] [place] [address] | | | | | e disc | [place], [place] | [place], [place] | | | | | disease), | [address] | [address] | | | | | lumbar | Phone: | Phone: | | | | | Facet | [phone] | [phone] | | | | | arthritis of | Fax: | Fax: | | | | | lumbar | [phone] | [phone] | | | | | region | | | +--------+ + + + + + Reason for Visit + + + | Reason | Comments | + + + | Back Pain | Low back pain | + + + Evaluate & Treat (Routine) +--------+ + + + + + | Status | Reason | Specialty | Diagnoses / | Referred By | Referred To | | | | | Procedures | Contact | Contact | +--------+ + + + + + | Closed | Specialty | Physical | Diagnoses | Nancy, | Bal, | | | Services | Medicine and | Midline | Rodolfo Reilly MD | Harsha Moreno MD | | | Required | Rehabilitatio | thoracic | [address] | [address] | | | | n | back pain | [address] [place] | [address] [place] | | | | | | [place] | [place] | | | | | | [address] | [address] Phone: | | | | | | Phone: | [phone] | | | | | | [phone] | Fax: | | | | | | Fax: | [phone] | | | | | | [phone] | | +--------+ + + + + + Encounter Details +--------+---------+ + + + | Date | Type | Department | Care Team | Description | +--------+---------+ + + + | 08/24/ | Office | [facility] | Harsha Selby | Chronic low back | | 2014 | Visit | PHYSIATRY [address] | MD Josh [address] | pain (Primary Dx); | | | | [place], | [place], [place] | DDD (degenerative | | | | [place] [address] | [address] | disc disease), | | | | [phone] | | lumbar; Facet | | | | | | arthritis of lumbar | | | | | | region | +--------+---------+ + + + Social History [...] + + + | Blood Pressure | 160/83 | 08/24/2014 10:44 AM | | | | | PDT | | + + + + + | Pulse | 54 | 08/24/2014 10:44 AM | | | | | PDT [...] Weight | 85.7 kg (189 lb) | 08/24/2014 10:44 AM | | | | | PDT | | + + + + + | Height | 165 cm (5' 4.96") | 08/24/2014 10:44 AM | | | | | PDT | | + + + + + | Body Mass Index | 31.49 | 08/24/2014 10:44 AM | | | | | PDT | | + + + + + documented in this encounter Progress Notes Harsha Selby MD - 08/24/2014 10:45 AM PDT CHIEF COMPLAINT: Chief Complaint Patient presents with Back Pain Low back pain HISTORY OF PRESENT ILLNESS: The patient is a 79 y.o. female being seen today at the [facility] of Dr. Rodolfo Cruz for complaints of low back pain that began in October of 2013 with no k nown incident or trauma. Per the referral it appears that she was being sent for thoracic p ain but the worst pain by far at this time is the lumbar pain at the lower lumbar levels. Her symptoms worsen with any lifting, bending or twisting. Her symptoms improve with application of ice or heat as well as while resting. Since the symptoms began, she has noticed that symptoms have been worsening. She describes the pain as a sharp/aching feeling. She rates the pain as moderate. 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 She does not report weakness. She does not have bowel and bladder dysfunction. She de oliveira s not have saddle anesthesia. Treatments for these complaints have included physical therapy, chiropractics along with th e use of hydrocodone/apap at night. She did take Voltaren for years but then has had ulcers and had to quit all NSAIDs. Patient's medications, allergies, past medical, surgical, social and family histories were reviewed and updated as appropriate. PAST MEDICAL HISTORY: Past Medical History Diagnosis Date Hypertension High cholesterol Hepatitis A 1967 ?? Osteoporosis MGUS (monoclonal gammopathy of unknown significance) COPD (chronic obstructive pulmonary disease) (HCC) Mononucleosis Miscarriage x 2 Asthma 1960s Fracture of foot approx 2008 left foot, fall/missed step Hyperplastic colon polyp 03/28/10 GERD 04/17/2010 TIA 05/08/2010 PUD (peptic ulcer disease) 11/08/2013 Anemia 11/24/2013 Hypothyroidism Valvular heart disease 05/23/2010 Herpes zoster 05/03/2011 DJD (degenerative joint disease) 07/08/2013 Pulmonary nodules 12/08/2013 Spondylosis, cervical 08/30/2010 UGIB (upper gastrointestinal bleed) 11/14/2013 Vertigo 09/03/2012 Anxiety May 2014 Arthritis Encounter for blood transfusion November 2013 Stroke (HCC) Apr 2010 Hep B complicating Chronic low back pain 08/24/2014 DDD (degenerative disc disease), lumbar 08/24/2014 Facet arthritis of lumbar region 08/24/2014 PAST SURGICAL HISTORY: Past Surgical History Procedure Laterality Date Colonoscopy 05/2002; 03/28/10 next due 03/2020 Removal lower left nodules 2004 Foot fracture surgery 2004 left foot Tonsillectomy and adenoidectomy 1955 Upper gastrointestinal endoscopy 11/15/2013 EGD * IP RM: 428 * ; Laterality: N/A; Surgeon: Lauri Garrison MD; Location[facility] Upper gastrointestinal endoscopy 11/04/2013 EGD IP 449; Laterality: N/A; Surgeon: Samm Pandya MD; Location: [facility] CURRENT MEDICATIONS: Current Outpatient Prescriptions Medication Sig [...] tablet Take 10 mg by mouth as needed. Cholecalciferol (D-5000 PO) Take 5,000 Units by mouth Daily. diclofenac (VOLTAREN) 1% GEL Apply 1 g topically Daily as needed. diphenhydrAMINE (BENADRYL) 25 MG capsule Take 25 mg by mouth as needed. escitalopram (LEXAPRO) 10 mg tablet Take 1 tablet by mouth Daily. (Patient taking diffe rently: Take by mouth Daily. 1/2 tab) 30 tablet 1 eszopiclone (LUNESTA) 2 MG TABS Take 1 tablet by mouth nightly. 90 tablet 0 fenofibrate (TRICOR) 48 mg tablet TAKE ONE TABLET BY MOUTH EVERY DAY 90 tablet 3 ferrous sulfate 325 mg tablet Take 325 mg by mouth Daily. GARLIC Take 1,250 mg by mouth Daily. Glucosamine-Chondroitin (COSAMIN DS PO) Take 2 tablets by mouth Daily. HYDROcodone-acetaminophen (NORCO) 7.5-325 mg per tablet One po qd prn pain, avoid routi ne use, 90 day supply 90 tablet 0 L-Lysine HCl 500 MG CAPS [...] one capsule once daily before breakfast. 90 c apsule 3 polyethylene glycol (MIRALAX) packet Take 17 g by mouth Daily as needed. Took it once o n the UNABLE TO FIND Take 1 tablet by mouth Daily. Med Name: Pure absorb Iron vitamin B-12 (CYANOCOBALAMIN) 1000 MCG tablet Take 1,000 mcg by mouth Daily. No current facility-administered medications for this visit. ALLERGIES: Allergies Allergen Reactions Diclofenac Sodium Duodenal Ulcer October 2013 Alendronate Sodium Patient not remember Celecoxib Patient not remember Penicillins Caused "black diarrhea" when she had her 4th child. Risedronate Sodium Patient not remember SOCIAL HISTORY: The patient reports that she quit smoking about 38 years ago. Her smoking use included Cig arettes. She has a 60 pack-year smoking history. She has never used smokeless tobacco. She r eports that she does not drink alcohol or use illicit drugs. FAMILY HISTORY: Family History Problem Relation Age of Onset Prostate cancer Father Breast cancer Mother 75 High blood pressure Mother Stroke Maternal Grandmother Cancer Sister 59 brain Colon cancer Sister ileostomy High blood pressure Sister Migraines Sister Thyroid disease Sister in 2 half-sisters Cancer Sister Cancer Son 20 Non-Hodgkins lymphoma Heart disease Maternal Uncle High blood pressure Sister Stroke Father from femal hormones for his cancer Stroke Paternal Grandmother in her 50s Other (See Comment) Mother Gout Other (See Comment) Sister sleep apnea REVIEW OF SYSTEMS: GENERALLY: No fever, chills, no night sweats, no weight gain, + weight loss, no anemia, n o fatigue. EYES: + eye problems, no impaired sight, + eye glasses/contacts, no eye injury, no double vision, no transient blindness. EARS, NOSE, THROAT and MOUTH: No change in sense taste/smell, no hearing difficulty, no ri nging in ears, no drainage from ears, no ear injury, no dizziness, no voice change, no diffi culty swallowing, no snoring, no sleep apnea/CPAP, no sinus trouble, no dental work. NEUROMUSCULAR: No numbness/pain of arms, no numbness/pain of legs, no awake with numbness/ pain, no weakness, no muscle aching, no coordination difficulty, no change in walk, no head injury, no neck injury, no back injury, no pain in neck, no pain in back, no stroke, no dung ting spells, no loss of consciousness, no tremor/shaking, no seizures, no headaches, no migr aines, no memory loss, no speech difficulty, no confusion, no numbness of face. PSYCHIATRIC: No depression, no difficulty sleeping, no anxiety, no bipolar disorder. CARDIOVASCULAR/PULMONARY: No heart attack, no heart murmur, no fluttering heart, no shortn ess of breath, no cough, no Tuberculosis, no chest pain, no swelling ankles, no bloody cough ing, no asthma, no COPD/emphysema. GASTROINTESTINAL: No bowel disease, no nausea/vomiting, no rectal bleeding/hemorroids, no constipation, no fecal/stool incontinence, no liver/gallbl adder disease, no abdominal pain. GENITOURINARY: No frequent urination, no painful/difficult urination, no urinary incontinen ce, no bladder problems. ENDOCRINE: No diabetes, no thyroid disease, no osteoporosis/osteopenia, no drainage from br easts. INTEGUMENTARY/SKIN: No lump in breasts, no skin disease or skin changes, no rash/itch. HEMATOLOGIC: No enlarged lymph nodes, no easy or unusual bleeding, no cancer. RHEUMATOLOGIC: No joint pain/arthritis, no rheumatoid arthritis PHYSICAL EXAMINATION: Blood pressure 160/83, pulse 54, height 1.65 m (5' 4.96"), weight 85.73 kg (189 lb), not cu rrently . Body mass index is 31.49 kg/(m^2). GENERAL: The patient is well developed [...] lower extremity edema. ABDOMEN: The patient is overweight. NEUROLOGIC: The patient is awake, alert, and oriented to time, place, person. She follows simple and complex commands. Her speech is fluent. She comprehends speech well. She has no apparent deficits with short or retirement memory. She has appropriate fund of knowledge Cranial nerves 2-12 appear grossly intact. Sensory exam does not show diminished sensation to light touch in the upper and lower extre mities. REFLEX: RIGHT LEFT PATELLAR 2+ 2+ ACHILLES 2+ 2+ PLANTAR Downgoing Downgoing MUSCULOSKELETAL There is no major palpable deformity of the spine. Straight leg raise and slump-sit are negative. Pablo's maneuver and impingement testing were negative for any groin pain. There was mild tenderness to palpation over the greater trochanters, no tenderness over the sacral sulci. The patient localized the majority of the pain to the L5-S1 region. Lumbar facet loading was negative. Strength testing showed 5/5 strength throughout the lower extremities. The patient was able to heel and toe walk withou t difficulty. There was no redness, effusion, warmth or joint line tenderness in the knees or ankles. RADIOGRAPHIC REVIEW: The patient's imaging was reviewed in detail with the patient today during the visit. She has not had any advanced imaging specifically of the lumbar spine but did have a CT of the a bdomen/pelvis from November of 2013. This was reviewed today looking specifically at the lumbar spine itself. The images show fairly significant DDD and facet arthritis at the L5-S1 level . ASSESSMENT: Encounter Diagnoses Name Primary? Chronic low back pain Yes DDD (degenerative disc disease), lumbar Facet arthritis of lumbar region PLAN: 1. The patient has not had any physical therapy in sometime. I recommend physical therapy as the first step. The patient was given a detailed referral to physical therapy today. She will follow-up post physical therapy in approximately 6 weeks. 2. Injections were discussed with the patient in detail today. She was informed if the phys ical therapy fails bilateral L5-S1 facet injections may be warranted in the future. 3. The patient has a history of ulcers so NSAID's are not recommended. She was advised that she can try taking acetaminphen to see if that provides any relief. She was informed that s he cannot go over 3000 mg of acetaminphen daily which would include the acetaminphen in her hydrocodone/apap. ELECTRONICALLY EDITED AND SIGNED BY: Harsha Selby MD, 08/24/2014 Scribed by: Aleta Etienne MA for Dr. Harsha Selby on 08/24/2014 documented in this encounter Plan of Treatment +--------+---------+ + + + | Date | Type | Specialty | Care Team | Description | +--------+---------+ + + + | 06/02/ | Office | Orthopedic Surgery | Ulysses Jensen, | | | 2019 | Visit | | MD Danny PARHAM | | | | | | [address] | | | | | | [id number] | | | | | | | | +--------+---------+ + + + | 11/21/ | Office | Cardiology | Yesi, | | 2019 | Visit | | JOSE ALBERTO Linder [address] | | | | | | [place] | | | | | | [place] [address] | | | | | | [phone] | | | | | | | | +--------+---------+ + + + + + +--------+ + + | Name | Type | Priori | Associated Diagnoses | Order Schedule | | | | ty | | | + + +--------+ + + | External Physical | Outpatient | Routin | Chronic low back | Ordered: 08/24/2014 | | Therapy - AMB | Referral | e | pain DDD | | | Referral | | | (degenerative disc | | | | | | disease), lumbar | | | | | | Facet arthritis of | | | | | | lumbar region | | + + +--------+ + + documented as of this encounter Visit Diagnoses + + | Diagnosis | + + | Chronic low back pain - Primary Lumbago | + + | DDD (degenerative disc disease), lumbar Degeneration of lumbar or lumbosacral | | intervertebral disc | + + | Facet arthritis of lumbar region Lumbosacral spondylosis without myelopathy | + + documented in this encounter
--- OUTSIDE RECORDS SUMMARY | ~2019-04-12 | XMS | Encounter Summary ---
Demographics + + + | Address | [address] | | | [place] [address] | + + + | Home Phone [...] | [facility] | | | and [place] | + + + | Organization | [facility] | | [...] | | | | | [place] [address] | | + + + + + | Hunter Jackson | ECON | [place] | | + + + + + | Wes Jackson | ECON | [place], [place] | | + + + + + | Oziel Jackson | ECON | [place], [place] | | + + + + + Care Team Providers + +------+ + | Care Chief Medical Officer Name | Role | Phone | + +------+ + | Rodolfo Cruz MD | PCP | | + +------+ + Encounter Details +--------+ + + + + | Date | Type | Department | Care Team | Description | +--------+ + + + + | 10/22/ | Hospital | [facility] | Rodolfo Cruz, | Thoracic sprain and | | 2013 | Encounter | [facility] | MD Raya DING AVGabriel | strain, subsequent | | | | [address] [place] | [place], [place] | encounter; | | | | [place], [place] | [address] | Hyperlipidemia; | | | | [address] | | Hypertension | | | | [phone] | | | +--------+ + + + [...] tablet by | 40 | 0 | 10/22/19 | | | HYDROcodone-acetamin | mouth every 6 hours | tablet | | 14 | 4 | | ophen (NORCO) 5-325 | as needed for Pain. | | | | | | mg per | | | | | | | tabletIndications: | | | | | | | Thoracic sprain and | | | | | | | strain, initial | | | | | | | encounter | | | | | | + + + +---------+ + + | | Take 1 tablet by | 40 | 0 | 10/23/19 | | | HYDROcodone-acetamin | mouth every [...] + + + +---------+ + + | metaxalone | Take 1 tablet by | 90 | 5 | 10/22/19 | | | (SKELAXIN) 800 mg | mouth 3 times daily. | tablet | | 14 | 4 | | tablet | | | | | | + + + +---------+ + + | metaxalone | Take 1 tablet by | 30 | 0 | 09/28/19 | | | (SKELAXIN) 800 mg | mouth 3 times daily | tablet | | 14 | 4 | | tabletIndications: | for 10 days. | | | | | | Thoracic sprain and | | | | | | | strain, initial | | | | | | | [...] [address] | | | | | | [address] [place], | | | | | | [place] [address] | | | | | | [phone] | | | | | | | | +--------+---------+ + + + documented as of this encounter Procedures + +--------+ + + + | Procedure Name | Priori | Date/Time | Associated Diagnosis | Comments | | | ty | | | | + +--------+ + + + | URINALYSIS WITH | Routin | 10/22/2013 | Thoracic sprain | Results for this | | MICROSCOPIC IF | e | 10:53 AM | and strain, | procedure are in the | | INDICATED | | PDT | subsequent encounter | results section. | + +--------+ + + + | LIPID PROFILE | Routin | 10/22/2013 | Hyperlipidemia | Results for this | | | e | 10:44 AM | | procedure are in the | | | | PDT | | results section. | + +--------+ + + + | SEDIMENTATION RATE | Routin | 10/22/2013 | Thoracic sprain | Results for this | | | e | 10:44 AM | and strain, | procedure are in the | | | | PDT | subsequent encounter | results section. | + +--------+ + + + | CBC WITH | Routin | 10/22/2013 | Thoracic sprain | Results for this | | DIFFERENTIAL | e | 10:44 AM | and strain, | procedure are in the | | | | PDT | subsequent encounter | results section. | + +--------+ + + + | TSH | Routin | 10/22/2013 | Hypertension | Results for this | | | e | 10:44 AM | | procedure are in the | | | | PDT | | results section. | + +--------+ + + + | COMPREHENSIVE | Routin | 10/22/2013 | Thoracic sprain | Results for this | | METABOLIC PANEL | e | 10:44 AM | and strain, | procedure are in the | | | | PDT | subsequent encounter | results section. | + +--------+ + + + documented in this encounter Results Urinalysis with Microscopic if Indicated (10/22/2013 10:53 AM PDT) + + + + + + | Component | Value | Ref Range | Performed | Pathologist | | | | | At | Signature | + + + + + + | Color | Yellow | Light Yellow, | [facility] | | | | | Yellow | [facility] | [...] + + + | pH, Urine | 7.0 | 5.0 - 8.0 | [facility] | | | | | | [facility] | | | | | | MEDICAL | | | | | | CENTER - | | | | | | LABORATORY | | + + + + + + | Specific | <=1.005 | 1.001 - 1.030 | [facility] | | | [place] | | | [facility] | | [...] Urine | + + + + + + + | Performing | Address | City/State/Zipcode | Phone Number | | Organization | | | | + + + + + | [facility] | [address] | [place] | [phone] | | [facility] | | [address] | | | - LABORATORY | | | | + + + + + | [facility] | [address] | [place], [place] | | | [facility] | | [address] | | | - LABORATORY | | | | + + + + + TSH (10/22/2013 10:44 AM PDT) + + + + + + | Component | Value | Ref Range | Performed | Pathologist | | | | | At | Signature | + + + + + + | TSH | 0.52Comment: All TSH | 0.34 - 5.60 | [facility] | | | | samples are screened | uIU/mL | [facility] | | | | using a 2nd [...] + | [facility] | [address] | [place] | [phone] | | [facility] | | [address] | | | - LABORATORY | | | | + + + + + | [facility] | [address] | [place] | | | [facility] | | [address] | | | - LABORATORY | | | | + + + + + Lipid Profile (10/22/2013 10:44 AM PDT) + +-------+ + + + | Component | Value | Ref Range | Performed | Pathologist | | | | | At | Signature | + +-------+ + + + | Triglycerid | 80 | 35 - 160 mg/dL | [facility] | | | es | | | [facility] | | | | | | MEDICAL | | | | | | CENTER - | | | | | | LABORATORY | | + +-------+ + + + | Cholesterol | 179 | 150 - 200 mg/dL | [facility] | | | | | | [facility] | | | | | | MEDICAL | | | | | | CENTER - | | | | | | LABORATORY | | + +-------+ + + + | HDL | 62 | 29 - 89 mg/dL | [facility] | | | | | | [facility] | | | | | | MEDICAL | | | | | | CENTER - | | | | | | LABORATORY | | + +-------+ + + + | Chol/HDL | 2.9 | | [facility] | | | Ratio | | | [facility] | | | | | | MEDICAL | | | | | | CENTER - | | | | | | LABORATORY | | + +-------+ + + + | LDL, | 101 | <=130 mg/dL | [facility] | | | Calculated | | | [facility] | | [...] + | [facility] | [address] | [place] | [phone] | | [facility] | | [address] | | | - LABORATORY | | | | + + + + + | [facility] | [address] | [place] | | | [facility] | | [address] | | | - LABORATORY | | | | + + + + + Sedimentation Rate (10/22/2013 10:44 AM PDT) + +--------+ + + + | Component | Value | Ref Range | Performed | Pathologist | | | | | At | Signature | + +--------+ + + + | ESR | 68 (H) | <30 mm/hr | [facility] | | | | [...] + | [facility] | [address] | [place], [place] | [phone] | | [facility] | | [address] | | | - LABORATORY | | | | + + + + + | [facility] | [address] | [place], [place] | | | [facility] | | [address] | | | - LABORATORY | | | | + + + + + Comprehensive Metabolic Panel (10/22/2013 10:44 AM PDT) + + + + + [...] | K | 4.5 | 3.5 - 5.1 | [facility] | | | | | mmol/L | [facility] | | | | | | MEDICAL | | | | | | CENTER - | | | | | | LABORATORY | | + + + + + + | Cl | 100 | 98 - 109 mmol/L | [facility] | | | | | | [facility] | | | | | | MEDICAL | | | | | | CENTER - | | | | | | LABORATORY | | + + + + + + | CO2 | 27 | 24 - 31 mmol/L | [facility] | | | | | | [facility] | | | | | | MEDICAL | | | | | | CENTER - | | | | | | LABORATORY | | + + + + + + | Anion Gap | 6 | 3 - 16 mmol/L | [facility] | | | | | | [facility] | | | | | | MEDICAL | | | | | | CENTER - | | | | | | LABORATORY | | + + + + + + | Glucose | 97 | 70 - 109 mg/dL | [facility] | | | | | | [facility] | | | | | | MEDICAL | | | | | | CENTER - | | | | | | LABORATORY | | + + + + + + | BUN | 13 | 7 - 18 mg/dL | [facility] | | | | | | [facility] | | | | | | MEDICAL | | | | | | CENTER - | | | | | | LABORATORY | | + + + + + + | Creatinine | 0.71 | 0.60 - 1.30 | [facility] | | | | | mg/dL | [facility] | | | | | | MEDICAL | | | | | | CENTER - | | | | | | LABORATORY | | + + + + + + | eGFR if not | >60Comment: GLOMERULAR | >=60 | [facility] | | | | FILTRATION | mL/min/1.73m2 | [facility] | | | SAMOAN | RATE,ESTIMATED | | MEDICAL | | | | mL/min/1.58a2Xtvl than | | CENTER - | | [...] + + + + | Albumin | 3.7 | 3.2 - 5.0 g/dL | [facility] | | | | | | [facility] | | | | | | MEDICAL | | | | | | CENTER - | | | | | | LABORATORY | | + + + + + + | Bilirubin | 0.4 | 0.1 - 1.5 mg/dL | [facility] | | | Total | | | [facility] | | | | | | MEDICAL | | | | | | CENTER - | | | | | | LABORATORY | | + + + + + + | Total | 7.4 | 6.0 - 7.8 g/dL | [facility] | | | Protein | | | [facility] | | | | | | MEDICAL | | | | | | CENTER - | | | | | | LABORATORY | | + + + + + + | AST | 17 | 10 - 42 U/L | [facility] | | | | | | [facility] | | | | | | MEDICAL | | | | | | CENTER - | | | | | | LABORATORY | | + + + + + + | ALT | 11 | 6 - 45 U/L | [facility] | | | | | | [facility] | | | | | | MEDICAL | | | | | | CENTER - | | | | | | LABORATORY | | + + + + + + | Alkaline | 46 | 40 - 110 U/L | [facility] [...] + + + + | Albumin/Sarah | 1.0 | | [facility] | | | bulin Ratio | | | [facility] | | | | | | MEDICAL | | | | | | CENTER - | | | | | | LABORATORY | | + + + + + + | BUN/Creatin | 18.3 | | [facility] | | | ine [...] + | [facility] | [address] | [place] | [phone] | | [facility] | | [address] | | | - LABORATORY | | | | + + + + + | [facility] | [address] | [place] | | | [facility] | | [address] | | | - LABORATORY | | | | + + + + + CBC with Differential (10/22/2013 10:44 AM PDT) + + + + + + | Component | Value | Ref Range | Performed | Pathologist | | | | | At | Signature | + + + + + + | WBC | 10.4 | 4.0 - 11.0 K/uL | [facility] | | | | | | [facility] | | | | | | MEDICAL | | | | | | CENTER - | | | | | | LABORATORY | | + + + + + + | RBC | 3.40 (L) | 3.70 - 5.20 | [facility] | | | | | M/uL | [facility] | | | | | | MEDICAL | | | | | | CENTER - | | | | | | LABORATORY | | + + + + + + | Hemoglobin | 11.8 | 11.5 - 16.0 | [facility] | | | | | g/dL | [facility] | | | | | | MEDICAL | | | | | | CENTER - | | | | | | LABORATORY | | + + + + + + | Hematocrit | 33.9 (L) | 34.0 - 47.0 % | [facility] | | | | | | [facility] | | | | | | MEDICAL | | | | | | CENTER - | | | | | | LABORATORY | | + + + + + + | MCV | 100.0 | 83.0 - 101.0 fL | [facility] | | | | | | [facility] | | | | | | MEDICAL | | | | | | CENTER - | | | | | | LABORATORY | | + + + + + + | MCH | 34.8 | 28.0 - 35.0 pg | [facility] | | | | | | [facility] | | | | | | MEDICAL | | | | | | CENTER - | | | | | | LABORATORY | | + + + + + + | MCHC | 34.8 | 32.0 - 36.0 | [facility] | | | | | g/dL | [facility] | | | | | | MEDICAL | | | | | | CENTER - | | | | | | LABORATORY | | + + + + + + | RDW-CV | 13.8 | <15.0 % | [facility] | | | | | | [facility] | | | | | | MEDICAL | | | | | | CENTER - | | | | | | LABORATORY | | + + + + + + | Platelet | 430 | 140 - 440 K/uL | [facility] | | | Count | | | [facility] | | | | | | MEDICAL | | | | | | CENTER - | | | | | | LABORATORY | | + + + + + + | MPV | 9.6 | fL | [facility] | | | | | | [facility] | | | | | | MEDICAL | | | | | | CENTER - | | | | | | LABORATORY | | + + + + + + | % | 76.2 | 45.0 - 82.0 % | [facility] | | | Neutrophils | | | [facility] | | | | | | MEDICAL | | | | | | CENTER - | | | | | | LABORATORY | | + + + + + + | % | 13.3 (L) | 20.0 - 45.0 % | [facility] | | | Lymphocytes | | | [facility] | | | | | | MEDICAL | | | | | | CENTER - | | | | | | LABORATORY | | + + + + + + | % Monocytes | 6.5 | 4.0 - 12.0 % | [facility] | | | | | | [facility] | | | | | | MEDICAL | | | | | | CENTER - | | | | | | LABORATORY | | + + + + + + | % | 3.1 | 0.0 - 5.0 % | [facility] [...] + + + + | Absolute | 7.90 | 1.80 - 8.50 | [facility] | | | Neutrophils | | K/uL | [facility] | | | | | | MEDICAL | | | | | | CENTER - | | | | | | LABORATORY | | + + + + + + | Absolute | 1.40 | 0.60 - 3.20 | [facility] | [...] | Basophils | | K/uL | [facility] | | | | [...] [address] | [place] | [phone] | | [facility] | | [address] | | | - LABORATORY | | | | + + + + + | [facility] | [address] | [place] | | | [facility] | | [address] | | | - LABORATORY | | | | + + + + + documented in this encounter Visit Diagnoses + + | Diagnosis | + + | Thoracic sprain and strain, subsequent encounter | + + | Hyperlipidemia Other and unspecified hyperlipidemia | + + | Hypertension Unspecified essential hypertension | + + documented in this encounter"
--- OUTSIDE RECORDS SUMMARY | ~2019-04-12 | XMS | Encounter Summary ---
Demographics + + + | Address | [address] | | | [place] [address] | + + + | Home Phone [...] + | Author | [facility] | | | and [place] | + + + | Organization | [facility] | | [...] | | | | | [place] [address] | | + + + + + | Hunter Jackson | ECON | [place] | | + + + + + | Wes Jackson | ECON | [place], [place] | | + + + + + | Oziel Jackson | ECON | [place], [place] | | + + + + + Care Team Providers + +------+ + | Care Conditioning Machine Operator Name | Role | Phone | + +------+ + PCP | Unavailable | + +------+ + Encounter Details +--------+ + + + + | Date | Type | Department | Care Team | Description | +--------+ + + + + | 06/07/ | Hospital | [facility] | | | | 2010 | Encounter | MED CTR XRAY [address] | | | | | | [place] | | | | | | [place] [address] | | | | | | [phone] | | | +--------+ + + + [...] [place] | | | | | | [address] | | | | | | | | +--------+---------+ + + + | 11/21/ | Office | Cardiology | Yesi, | | | 2019 | Visit | | JOSE ALBERTO [address] | | | | | | [place], | | | | | | [place] [address] | | | | | | [phone] | | | | | | | | +--------+---------+ + + + documented as of this encounter Visit Diagnoses Not on filedocumented in this encounter"
--- OUTSIDE RECORDS SUMMARY | ~2019-04-12 | XMS | Encounter Summary ---
Demographics + + + | Address | [address] | | | [place] [address] | + + + | Home Phone [...] Author | [facility] | | | and [place] | + + + | Organization | [facility] [...] | | | | | [place] [address] | | + + + + + | Hunter Jackson | ECON | [place] | | + + + + + | Wes Jackson | ECON | [place], [place] | | + + + + + | Oziel Jackson | ECON | [place], [place] | | + + + + + Care Team Providers + +------+ + | Care Departmental Secretary Name | Role | Phone | + +------+ + | Rodolfo Cruz MD | PCP | | + +------+ + Encounter Details +--------+ + + + + | Date | Type | Department | Care Team | Description | +--------+ + + + + | 12/14/ | Orders Only | [facility] | Yany, | Chronic low back | | 2014 | | PHYSIATRY [address] | [address] | pain (Primary Dx); | | | | [place], | [facility], | Facet arthritis of | | | | [place] [address] | [place] [address] | lumbar region | | | | [phone] | [phone] | | | | | | | [...] | | | | | | [place] [address] | | | | | | [phone] | | | | | | | | +--------+---------+ + + + documented as of this encounter Visit Diagnoses + + | Diagnosis | + + | Chronic low back pain - Primary Lumbago | + + | Facet arthritis of lumbar region Lumbosacral spondylosis without myelopathy | + + documented in this encounter"
--- OUTSIDE RECORDS SUMMARY | ~2019-04-12 | XMS | Encounter Summary ---
Demographics + + + | Address | [address] | | | [place] [address] | + + + | Home Phone [...] Author | [facility] | | | and [place] | + + + | Organization | 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 | [place], [place] | Phone: | | | | | Procedures | [address] | [phone] | | | | | CT Chest w | Phone: | Fax: | | | | | Contrast | [phone] | [phone] | | | | | 02/16/14 | Fax: | | | | | | | [phone] | | +--------+--------+ + + + + [...] Pulmonary | Rodolfo Reilly MD | [address] | | | | | nodules | [address] | [place], | | | | | 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 | [place], [place] | Phone: | | | | | Procedures | [address] | [phone] | | | | | CT Chest w | Phone: | Fax: | | | | | Contrast | [phone] | [phone] | | | | | 02/16/14 | Fax: | | | | | | | [phone] | | +--------+--------+ + + + + Encounter Details +--------+ + + + + | Date | Type | Department | Care Team | Description | +--------+ + + + + | 02/22/ | Hospital | [facility] | Rodolfo Cruz, | Pulmonary nodules; | | 2013 | Encounter | MED CTR [address] | [address] | 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
--- OUTSIDE RECORDS SUMMARY | ~2019-04-12 | XMS | Encounter Summary ---
Demographics + + + | Address | [address] | | | [place] [address] | + + + | Home Phone [...] | Author | [facility] | | | and [place] | + + + | Organization | [facility] | | | and [...] | | | | | [place] [address] | | + + + + + | Hunter Jackson | ECON | [place] | | + + + + + | Wes Jackson | ECON | [place], [place] | | + + + + + | Oziel Jackson | ECON | [place], [place] | | + + + + + Care Team Providers + +------+ + | Care Clerk Of Court Name | Role | Phone | + +------+ + | Rodolfo Cruz MD | PCP | | + +------+ + Reason for Visit + + + | Reason | Comments | + + + | Therapy Daily | | | Treatment | | + + + Encounter Details +--------+ + + + + | Date | Type | Department | Care Team | Description | +--------+ + + + + | 09/24/ | Telephone | [facility] | Rodolfo Cruz, | Therapy Daily | | 2012 | | MEDICINE [facility] | MD [address] | Treatment | | | | [place] | [place] | | | | | [place] [address] | [address] | | | | | [phone] | | | +--------+ + + + [...] | | | | | | [place] [address] | | | | | | [phone] | | | | | | | | +--------+---------+ + + + documented as of this encounter Visit Diagnoses Not on filedocumented in this encounter"
--- OUTSIDE RECORDS SUMMARY | ~2019-04-12 | XMS | Encounter Summary ---
Demographics + + + | Address | [address] | | | [place] [address] | + + + | Home Phone [...] | Located Within [facility] | | | and [place] | + + + | Organization | Located Within [facility] | | [...] | | | | | [place] [address] | | + + + + + | Hunter Jackson | ECON | [place] | | + + + + + | Wes Jackson | ECON | [place], [place] | | + + + + + | Oziel Jackson | ECON | [place], [place] | | + + + + + Care Team Providers + +------+ + | Care Legal Secretary Receptionist Name | Role | Phone | + +------+ + | Rodolfo Cruz MD | PCP | | + +------+ + Reason for Visit Service/Procedure (Routine) +--------+--------+ + + + + | Status | Reason | Specialty | Diagnoses / | Referred By | Referred To | | | | | Procedures | Contact | Contact | +--------+--------+ + + + + | Closed | | Radiology | Diagnoses | | [facility] | | | | | Lumbosacral | Bal, | [address] | | | | | spondylosis | Harsha Moreno MD | [place], | | | | | without | [address] | [place] | | | | | myelopathy | [facility] | [address] | | | | | Procedures | [place] | Phone: | | | | | [place] | [address] | [phone] | | | | | DX/THER AGNT | Phone: | Fax: | | | | | [place] | [phone] | [phone] | | | | | FACET JOINT, | Fax: | | | | | | LUMBAR/SAC, | [phone] | | | | | | 1ST LEVEL | | | | | | | [place] | | | | | | | DX/THER AGNT | | | | | | | [place] | | | | | | | FACET JOINT, | | | | | | | LUMBAR/SAC, | | | | | | | 2ND LEVEL | | | | | | | Bilateral L3 | | | | | | | and L4 MBB | | | +--------+--------+ + + + + Encounter Details +--------+ + + + + | Date | Type | Department | Care Team | Description | +--------+ + + + + | 03/06/ | Hospital | [facility] | Harsha Selby | Chronic low back | | 2014 | Encounter | MED CTR XRAY [address] | [address], [address] | pain; Facet | | | | [place] | [place], [place] | arthritis of lumbar | | | | [place] [address] | [address] | region; DDD | | | | [phone] | | (degenerative disc | | | | | [employer], [place] | disease), lumbar | +--------+ + + + + Social [...] this encounter Last Filed Vital Signs + +---------+ + + | Vital Sign | Reading | Time Taken | Comments | + +---------+ + + | Blood Pressure | 153/83 | 03/06/2015 1:33 PM | | | | | PDT | | + +---------+ + + | Pulse | 51 | 03/06/2015 1:33 PM | | | | | PDT | | + +---------+ + + | Temperature | - | - | | + +---------+ + + | Respiratory Rate | - | - | | + +---------+ + + | Oxygen Saturation | - | - | | + +---------+ + + | Inhaled Oxygen | - | - | | | Concentration | | | | + +---------+ + + | Weight | - | - | | + +---------+ + + | Height | - | - | | + +---------+ + + | Body Mass Index | - | - | | + +---------+ + + documented in this encounter Medications [...] Take 1 tablet by | 30 | 11 | 11/18/19 | | | (LIPITOR) 10 mg | mouth nightly. | tablet | | 15 | 6 [...] tablet by | 90 | 0 | 02/01/20 | | | (LUNESTA) 2 MG | mouth nightly. | tablet | | 15 | 6 | | TABSIndications: | | | | | | | Insomnia | | | | | | + [...] prn pain, | 90 | 0 | 01/25/20 | | | HYDROcodone-acetamin | avoid routine use, | tablet | | 15 | 5 | | ophen (NORCO) | 90 day [...] TAKE ONE TABLET BY | 90 | 0 | 01/27/20 | | | (SYNTHROID, | MOUTH EVERY MORNING | tablet | | 15 | 5 | | LEVOTHROID) 100 mcg | BEFORE BREAKFAST | | | | | | tablet | | | | | | + + + +---------+ + + | metoprolol | TAKE ONE-HALF TABLET | 45 | 3 | 04/23/20 | | | succinate | BY MOUTH DAILY | tablet | | 14 | 5 | | (TOPROL-XL) 50 mg 24 | [...] STREET[place] | | | | | | [address] | | | | | | | | +--------+---------+ + + + | 11/21/ | Office | Cardiology | Yesi, | | | 2019 | Visit | | JOSE ALBERTO Linder [address] | | | | | | [place], | | | | | | [place] [address] | | | | | | [phone] | | | | | | | | +--------+---------+ + + + documented as of this encounter Procedures + +--------+ + + + | Procedure Name | Priori | Date/Time | Associated Diagnosis | Comments | | | ty | | | | + +--------+ + + + | FL FACET INJECTION | Routin | 03/06/2015 | Chronic low back | Results for this | | LUMBAR SACRAL | e | 1:27 PM | pain Facet | procedure are in the | | | | PDT | arthritis of lumbar | results section. | | | | | region DDD | | | | | | (degenerative disc | | | | | | disease), lumbar | | + +--------+ + + + documented in this encounter Results FL Facet Injection Lumbar Sacral (03/06/2015 1:27 PM PDT) + + | Specimen | + + | | + + + + + | Narrative | Performed At | + + + | 03/06/2015 Procedure: Lumbar Medial Branch Block Diagnosis: | [facility] | | Lumbar spondylosis 723.1 Soumya Jackson presents to the | [facility] | | fluoroscopy suite for fluoroscopically guided bilateral L3 and | [facility] | | bilateral L4 medial branch blocks [...] + | [facility] | [address] | [place], [place] | [phone] | | [facility] | | [address] | | | - IMAGING | | | | + + + + + documented in this encounter Visit Diagnoses + + | Diagnosis | + + | Chronic low back pain Lumbago | + + | Facet arthritis of lumbar region Lumbosacral spondylosis without myelopathy | + + | DDD (degenerative disc disease), lumbar Degeneration of lumbar or lumbosacral | | intervertebral disc | + + documented in this encounter Administered Medications + +--------+ +-------+------+------+ | Medication Order | MAR | Action | Dose | Rate | Site | | | Action | Date | | | | + +--------+ +-------+------+------+ | bupivacaine (MARCAINE) 0.5% | Given | 03/06/20 | 3 mLs | | | | injection 3 mL 3 mL, Other, | | 15 1:30 | | | | | ONCE, 03/06/15 at 1330, For 1 | | PM PDT | | | | | dose, Radiology | | | | | | + +--------+ +-------+------+------+ +---+---+ | | | +---+---+ + +-------+ +-------+---+---+ | iohexol (OMNIPAQUE 300) 300 | Given | 03/06/20 | 2 mLs | | | | mg/mL injection 2 mL 2 mL, | | 15 1:27 | | | | | Other, ONCE PRN, Other, Starting | | PM PDT | | | | | 03/06/15 at 1306, For 1 dose, | | | | | | | Radiology | | | | | | + +-------+ +-------+---+---+ +---+---+ | | | +---+---+ + +-------+ +-------+---+ + | lidocaine buffered 1% injection | Given | 03/06/20 | 6 mLs | | Other | | 6 mL 6 mL, Intradermal, ONCE, | | 15 1:20 | | | (Comment | | 03/06/15 at 1330, For 1 dose, | | PM PDT | | | ) | | Radiology | | | | | | + +-------+ +-------+---+ + +---+---+ | | | +---+---+ documented in this encounter"
--- OUTSIDE RECORDS SUMMARY | ~2019-04-12 | XMS | Encounter Summary ---
Demographics + + + | Address | [address] | | | [place] [address] | + + + | Home Phone | | + + + | Preferred Language | Unknown | + + + | Marital Status | | + + + | Episcopal Affiliation | Unknown | + + + | Race | Unknown | + + + | Ethnic Group | Unknown | + + + Author + + + | Author | [facility] | | | and [place] | + + + | Organization | [facility] | [...] | | | | | [place] [address] | | + + + + + | Hunter Jackson | ECON | [place] | | + + + + + | Wes Jackson | ECON | [place], [place] | | + + + + + | Oziel Jackson | ECON | [place], [place] | | + + + + + Care Team Providers + +------+ + | Care Support Team Member Name | Role | Phone | + [...] + + | 10/30/ | Telephone | [facility] | Rodolfo Cruz, | Back Pain | | 2016 | | MEDICINE [address] [place] [address] | MD [address] | | | | | [place] | [place] | | | | | [place] [address] | [address] | | | | | [phone] | | | +--------+ + + + [...] | Office | Orthopedic Surgery | Ulysses Jenesn, | | | 2019 | Visit | | MD Danny [address]ANNERY | | | | | | [place] | | | | | | [id number] | | | | | | | | +--------+---------+ + + + | 11/21/ | Office | Cardiology | Yesi | | | 2019 | Visit | | JOSE ALBERTO Linder [address] | | | | | | [place] | | | | | | [place] [address] | | | | | | [phone] | | | | | | | | +--------+---------+ + + + documented as of this encounter Visit Diagnoses Not on filedocumented in this encounter"
--- OUTSIDE RECORDS SUMMARY | ~2019-04-12 | XMS | Encounter Summary ---
Demographics + + + | Address | [address] | | | [place] [address] | + + + | Home Phone | | + + + | Preferred Language | Unknown | + + + | Marital Status | Single | + + + | Episcopal Affiliation | Unknown | + + + | Race | Unknown | + + + | Ethnic Group | Other Race | + + + Author + + + | Author | [facility] | + + + | Organization | [facility] | + + + | Address | Unknown | + + + | Phone | Unavailable | + + + Support + + +---------+ + | Name | Relationship | Address | Phone | + + +---------+ + | None None | ECON | Unknown | Unavailable | + + +---------+ + Care Team Providers + +------+ + | Care Supervisor Rubber Covering Name | Role | Phone | + [...] [id number] | | | | | | [place], [place] | | | | | | [address] | | | | | | [phone] | | | +--------+ + + + [...] + + | REFERRAL | Referred to [place] | | [facility] | | | LAB NAME | [facility] [place] | | DEPARTMENT | | | | [...] | + + + + + | [facility] DEPARTMENT OF | [address] | [place] [address] | | | PATHOLOGY | [address] | | | + + + + + | [place] DEPARTMENT OF | [address] | [place] [address] | | | PATHOLOGY | [address] [...] | | | | | punch biopsy ([id number]) | | | | | | (outside [...] the | | | | | | [facility] | | | | | | ([id number]) show no | | | | | [...] number | | | | | | [id number], with | | | | | | [...] | | | | | bcl-2 staining. [id number] | | | | | | confirms [...] | | | | increase in CD4. [place] | | | | | | and [...] | + + + + + | [facility] DEPARTMENT OF | [address] | [place] [address] | | | PATHOLOGY | [address] | | | + + + + + | [facility] DEPARTMENT OF | [address] | [place] [address] | | | PATHOLOGY | [address] | | | + + + + + documented in this encounter Visit Diagnoses Not on filedocumented in this encounter
--- OUTSIDE RECORDS SUMMARY | ~2019-04-12 | XMS | Encounter Summary ---
Demographics + + + | Address | [address] | | | [place] [address] | + + + | Home Phone [...] | [facility] | | | and [place] | + + + | Organization | [facility] | | | [...] | | | | | [place] [address] | | + + + + + | Hunter Jackson | ECON | [place] | | + + + + + | Wes Jackson | ECON | [place], [place] | | + + + + + | Oziel Jackson | ECON | [place], [place] | | + + + + + Care Team Providers + +------+ + | Care Technical Sales Representative Name | Role | Phone | + [...] | Radiology | Diagnoses | | [facility] | | | | | Chronic low | Yany, | [address] | | | | | back pain | Velvet, | Lester Batista, | | | | | DDD | PA-C [address] | [place] | | | | | (degenerativ | [address] | [address] | | | | | e disc | [place] | Phone: | | | | | disease), | [phone] | [phone] | | | | | lumbar | Phone: | Fax: | | | | | Procedures | [phone] | [phone] | | | | | MRI Lumbar | Fax: | | | | | | Spine wo | [phone] | | | | | | Contrast | | | | | | | MRI | | | +--------+--------+ + + + + Reason for Visit + + + | Reason | Comments | + + + | Follow-up | post bilateral L4 medial branch blocks and bilateral L5 dorsal | | | ramus blocks on 12/09/14 | + + + | Back Pain | mid to low back pain | + + + Encounter Details +--------+---------+ + + + | Date | Type | Department | Care Team | Description | +--------+---------+ + + + | 01/02/ | Office | [facility] [place] | Yany, | Midline thoracic | | 2014 | Visit | PHYSIATRY [address] | [address] | back pain (Primary | | | | [address] [place], | [address] [place], | Dx); Chronic low | | | | [place] [address] | [place] [address] | back pain; DDD | | | | [phone] | [phone] | (degenerative disc | | | | [...] + + + | Blood Pressure | 144/72 | 01/02/2015 2:43 PM | | | | | PDT | | + + + + + | Pulse | 58 | 01/02/2015 2:43 PM | | | | | PDT [...] Weight | 84.8 kg (187 lb) | 01/02/2015 2:43 PM | | | | | PDT | | + + + + + | Height | 162.6 cm (5' 4") | 01/02/2015 2:43 PM | | | | | PDT | | + + + + + | Body Mass Index | 32.1 | 01/02/2015 2:43 PM | | | | | PDT | | + + + + + documented in this encounter Patient Instructions Patient Instructions Velvet Slade PA-C - 01/02/2015 3:01 PM PDT- Ice the area as n eeded 20 minutes per hour. Multiple times as needed over the next few days. - Watch for signs of infection (redness around injection site, swelling, fever) - No strenuous activity for 24-48 hours after the procedure. - Please call the office with questions or concerns. Please get MRI of low back You will follow up with Dr. Samanolectronically signed by Velvet Slade PA-C at 01/02/2015 3:02 PM PDT documented in this encounter Progress Notes Velvet Slade PA-C - 01/02/2015 3:15 PM PDTFormatting of this note might be jenniffer nt from the original. CHIEF COMPLAINT: Chief Complaint Patient presents with Follow-up post bilateral L4 medial branch blocks and bilateral L5 dorsal ramus blocks on 12/09/14 Back Pain mid to low back pain HISTORY OF PRESENT ILLNESS: The patient is a 79 y.o. female being seen today in follow-up for complaints of mid to low back pain. The patient has been seen for this complaint in the past, with initial visit [facility] by Dr. Selby. Previously it was recommended that she participate in physical the rapy. This was performed but she cannot see it has improved her symptoms. She reports that the symptoms show no change. She then had a medial branch block of the L4/L5 facet joints. I decided to get a block done over steroid injections because she recieves steroid injecti ons to her shoulders and fingers every 3 months. She received this on 12/09/14 and lorena rhodes the medial branch block failed to give her significant relief initially and did not last longer than 2 hours. She rates the pain as 2 on scale of 1-10. She describes the pain as aching. Her [...] use Voltaren Gel which she reports helps. Patient's medications, allergies, past medical, surgical, social and family histories were reviewed and updated as appropriate. CURRENT MEDICATIONS: Current Outpatient Prescriptions Medication Sig Dispense Refill albuterol 90 mcg/puff inhaler 2 puff po q 4 hours prn 1 Inhaler 0 amLODIPine (NORVASC) 10 MG tablet Take 1 tablet by mouth Daily. (Patient taking differe ntly: Take 5 mg by mouth Every other day.) 30 tablet 11 atorvaSTATin (LIPITOR) 10 mg tablet Take 1 [...] Daily. levothyroxine (SYNTHROID, LEVOTHROID) 100 mcg tablet Take 1 tablet by mouth every morni ng (before breakfast). 90 tablet 0 magnesium-calcium carbonate (SLOW-MAG) 71.5-119 [...] No abnormal bleeding PHYSICAL EXAMINATION: Filed Vitals: 01/02/15 1443 BP: 144/72 Pulse: 58 PainSc: 2 PainLoc: Back Body mass index is 32.08 kg/(m^2). GENERAL: [...] has no apparent deficits with short or terminal computer operator memory. She has appropriate fund of knowledge [...] lumbar region. Lumbar facet loading was positive. Strength test ing showed 5/5 strength throughout the lower extremities. The patient was able to heel and toe walk without difficulty. There was no redness, effusion, warmth or joint line tendernes s in the knees or ankles. 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 -LEFTWARD CURVATURE OF THE UPPER THORACIC SPINE WITHOUT SIGNIFICANT THORACIC DISC PATHOLOGY OR STENOSIS. ASSESSMENT: 1. Midline thoracic back pain 2. Chronic low back pain 3. DDD (degenerative disc disease), lumbar PLAN: 1. Unfortunately the patient has not received relief with either physical therapy or any r elief from the medial branch block performed by Dr. Selby. She continues to have moder ate debilitating pain to the low back and the thoracic area. She has not yet received any a dvanced imaging of low back and I do think at this point before any other treatment is done we need to order lumbar MRI. This has been ordered and once approved by insurance she will have it done. 2. Medications have been reviewed at today's visit with no changes made at this time. She cannot take any NSAIDS due to developing ulcers. She has used voltaren in the past but is n ow using the gel. She does have hydrocodone which provides significant relief. 3. Regarding the thoracic pain, I would like to try trigger point injections to the parasp inal muscles. She has agreed to this treatment and will be done here in the office After the patient gave consent for the procedure the trigger point injections were performe d using sterile no-touch technique and a 25 gauge 1.5 inch needle. The areas were prepped w ith alcohol. The needle was then advanced into 6 different trigger points and a total of 3 mL each of 0.5% bupivicaine and 1% lidocaine was injected divided between the 6 sites. The patient was instructed to ice the areas and to watch for signs of infection. 4. Once the MRI has been taken she'll follow-up with Dr. Selby to discuss ember de león with further treatment options. ELECTRONICALLY SIGNED BY: MAURILIO MccartneyC, 01/02/2015 SUPERVISING PHYSICIAN: Harsha Selby MD, who was present in the clinic today documented in t his encounter Plan of Treatment +--------+---------+ + + [...] | | | | | | [place] [address] | | | | | | [phone] | | | | | | | | +--------+---------+ + + + documented as of this encounter Results MRI Lumbar Spine wo Contrast (01/09/2015 2:15 PM PDT) + + | Specimen | + + | | + + + + + | Narrative | Performed At | + + + | MRI LUMBAR SPINE WITHOUT CONTRAST: 01/09/2015 1:55 PM CLINICAL | [facility] | | HISTORY: chronic low back pain, not responding to conservative | [facility] | | treatment COMPARISON: None TECHNIQUE: In the 1.5T scanner [facility] | | multiplanar, multisequence imaging of the lumbar spine is performed. | - IMAGING | | FINDINGS: There are 5 lumbar-type vertebral bodies. Vertebral | | | body heights are normally maintained. No marrow signal abnormality. | | | Lumbar alignment is within normal limits. No extra spinous soft | | | tissue abnormalities. 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 Conus | | | medullaris appears normal, terminating at L1-L2. Cauda equina nerve | | | roots are unremarkable. L1-L2: Sagittal images only. Minimal | | | broad-based disc bulge. No central canal or foraminal narrowing. | | | L2-L3: Mild broad-based disc bulge with tiny annular tear. Mild facet | | | degenerative changes with no central canal or foraminal narrowing. | | | L3-L4: Very mild bilobed disc bulge at the level of the subarticular | | | recess. No central canal or foraminal narrowing. Small nerve root | | | sleeve cyst on the left. L4-L5: Mild central broad-based disc | | | bulge eccentric to the right. Moderate facet degenerative changes and | | | hypertrophy. Moderate ligamentum flavum thickening. Bilateral large | | | facet joint cysts, at the posterior margins of the facet joint. Mild | | | central canal stenosis and moderate right lateral/subarticular recess | | | narrowing. L5-S1: Large central disc bulge. Central canal is | | | capacious this does not produce stenosis. Moderate facet degenerative | | | changes. The broad-based disc and facet joints combine to produce | | | moderate bilateral foraminal narrowing. IMPRESSION - 1. | | | Moderately severe facet degenerative changes and hypertrophy, | | | ligamentum flavum thickening and mild eccentric to the right | | | broad-based disc bulge combine to produce mild central canal stenosis | | | and moderate right lateral/subarticular recess narrowing at L4-L5. | | | Also bilateral large posterior facet joint cyst at this level. 2. | | | Disc osteophyte complex producing moderate bilateral foraminal | | | narrowing at L5-S1. 3. Milder degenerative disc changes at the | | | other levels, as discussed above. Dictated and Signed by: William | | | MD Denys Electronically signed: 01/09/2015 5:05 PM | | + + + + + | Procedure Note | + + | Rem[place], Rad Results In - 01/09/2015 5:08 PM PDT MRI LUMBAR SPINE WITHOUT CONTRAST: | | 01/09/2015 1:55 PMCLINICAL HISTORY: chronic low back pain, not responding to | | conservativetreatmentCOMPARISON: NoneTECHNIQUE: In the 1.5T scanner multiplanar, | | multisequence imaging of the lumbarspine is performed.FINDINGS: There are 5 lumbar-type | | vertebral bodies.Vertebral body heights are normally maintained. No marrow signal | | abnormality.Lumbar alignment is within normal limits.No extra spinous soft tissue | | abnormalities. 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 Cauda equina nerve rootsare unremarkable.L1-L2: Sagittal images | | only. Minimal broad-based disc bulge. No central canal orforaminal narrowing.L2-L3: Mild | | broad-based disc bulge with tiny annular tear. Mild facetdegenerative changes with no | | central canal or foraminal narrowing.L3-L4: Very mild bilobed disc bulge at the level of | | the subarticular recess. Nocentral canal or foraminal narrowing. Small nerve root | | sleeve cyst on the left.L4-L5: Mild central broad-based disc bulge eccentric to the | | right. Moderatefacet degenerative changes and hypertrophy. Moderate ligamentum | | flavumthickening. Bilateral large facet joint cysts, at the posterior margins of | | thefacet joint. Mild central canal stenosis and moderate right | | lateral/subarticularrecess narrowing.L5-S1: Large central disc bulge. Central canal is | | capacious this does notproduce stenosis. Moderate facet degenerative changes. The | | broad-based disc andfacet joints combine to produce moderate bilateral foraminal | | narrowing.IMPRESSION - 1. Moderately severe facet degenerative changes and hypertrophy, | | ligamentumflavum thickening and mild eccentric to the right broad-based disc bulge | | combineto produce mild central canal stenosis and moderate right | | lateral/subarticularrecess narrowing at L4-L5. Also bilateral large posterior facet | | joint cyst atthis level.2. Disc osteophyte complex producing moderate bilateral | | foraminal narrowing atL5-S1.3. Milder degenerative disc changes at the other levels, as | | discussed above.Dictated and Signed by: William Mcfarlane MD Electronically signed: | | 01/09/2015 5:05 PM | |L4-L5: Mild central broad-based disc bulge eccentric to the right. Moderate | |facet degenerative changes and hypertrophy. Moderate ligamentum flavum | |thickening. Bilateral large facet joint cysts, at the posterior margins of the | |facet joint. Mild central canal stenosis and moderate right lateral/subarticular | |recess narrowing. | | | |L5-S1: Large central disc bulge. Central canal is capacious this does not | |produce stenosis. Moderate facet degenerative changes. The broad-based disc and | |facet joints combine to produce moderate bilateral foraminal narrowing. | | | |IMPRESSION - | |1. Moderately severe facet degenerative changes and hypertrophy, ligamentum | |flavum thickening and mild eccentric to the right broad-based disc bulge combine | |to produce mild central canal stenosis and moderate right lateral/subarticular | |recess narrowing at L4-L5. Also bilateral large posterior facet joint cyst at | |this level. | | | |2. Disc osteophyte complex producing moderate bilateral foraminal narrowing at | |L5-S1. | | | |3. Milder degenerative disc changes at the other levels, as discussed above. | | | |Dictated and Signed by: William Mcfarlane MD | | Electronically signed: 01/09/2015 5:05 PM | + + + + + + + | Performing | Address | City/State/Zipcode | Phone Number | | Organization | | | | + + + + + | [address] | [address] | [place] | [phone] | | [facility] | | [id number] | | | - IMAGING | | | | + + + + + documented in this encounter Visit Diagnoses + + | Diagnosis | + + | Midline thoracic back pain - Primary | + + | Chronic low back pain Lumbago | + + | DDD (degenerative disc disease), lumbar Degeneration of lumbar or lumbosacral | | intervertebral disc | + + documented in this encounter Administered Medications + + + +-------+------+ + | Medication Order | MAR | Action | Dose | Rate | Site | | | Action | Date | | | | + + + +-------+------+ + | bupivacaine (MARCAINE) 0.5% | Given by | 01/03/20 | 5 mLs | | Other | | injection 5 mL 5 mL, | Other | 15 3:13 | | | (Comment | | Subcutaneous, ONCE, 01/02/15 | | PM PDT | | | ) | | at 1530, For 1 dose | | | | | | + + + +-------+------+ + +---+---+ | | | +---+---+ + + + +-------+---+---+ | lidocaine 1% injection 5 mL 5 | Given by | 01/03/20 | 5 mLs | | | | mL, Infiltration, ONCE, Mon | Other | 15 3:13 | | | | | 01/02/15 at 1530, For 1 dose | | PM PDT | | | | + + + +-------+---+---+ +---+---+ | | | +---+---+ documented in this encounter
--- OUTSIDE RECORDS SUMMARY | ~2019-04-12 | XMS | Encounter Summary ---
Demographics + + + | Address | [address] | | | [place] [address] | + + + | Home Phone [...] Author | [facility] | | | and Ohana | + + + | Organization | [facility] | | | and [...] | | | | | [place] [address] | | + + + + + | Hunter Jackson | ECON | [place] | | + + + + + | Wes Jackson | ECON | [place], [place] | | + + + + + | Oziel Jackson | ECON | [place], [place] | | + + + + + Care Team Providers + +------+ + | Care Wheel Cleaner Name | Role | Phone | + [...] | Back pain | | [address] | | | | | Hypothyroidi | | [place], | | | | | sm | | [place] | | | | | Hypertension | | [address] | | | | | Asthma GI | | Phone: | | | | | bleed | | [phone] | | | | | Troponin | | Fax: | | | | | level | | [phone] | | | | | elevated | [...] | +--------+ + + + + | 11/03/ | Hospital | [facility] | Stanislav Michele, | GI bleed (Primary | | 2013 - | Encounter | [facility] | [address] | Dx); Troponin level | | | | [address] | [place] | elevated; Back pain; | | 11/05/ | | [place] [address] | [id number] | Asthma; | | 2013 | | [phone] | | Hypertension; | | | | | Carranza, Yoel F, MD | Thoracic sprain and | | | | | [address] | strain, subsequent | | | | | [place], [place] | encounter; | | | | | [address] | Hypothyroidism; | | | | | | Anemia due to blood | | | | | | loss, acute | +--------+ + + + + [...] + documented in this encounter Discharge Summaries oYel Carranza MD - 11/05/2013 1:26 PM PDTFormatting of this note might be different fro m the original. [facility] DISCHARGE SUMMARY Pt. Name/Age/: Soumya Jackson 78 [...] problems to display. DISCHARGE MEDICATIONS: Not reviewed DIRECTOR EXTERNAL COMMUNICATIONS meds Medication Sig Dispense Refill [DISCONTINUED] aspirin 325 mg tablet Take 325 mg by mouth Daily. [DISCONTINUED] [facility] GARLIC OIL PO CAPS Take 1250 mg by mouth daily. [DISCONTINUED] diclofenac (VOLTAREN) 75 mg EC tablet TAKE ONE TABLET BY MOUTH TWICE A D AY 180 tablet 1 [DISCONTINUED] Dognwqogjnl-Twwlbgbpi-Fwx C-Mn ([facility] GLUCOSAMINE-CHONDROITIN) TABS Take 1 tablet by mouth 2 times daily. [DISCONTINUED] KRILL OIL 1000 MG CAPS Take 1,000 mg by mouth Daily. [DISCONTINUED] metaxalone (SKELAXIN) 800 mg tablet Take 800 mg by mouth 3 times daily. Unchanged DIRECTOR EXTERNAL COMMUNICATIONS meds that are or will be resumed [...] medication here given her anemia when in [facility] By history Anemia due to blood loss, acute From GI bleeding. Got total 4 PRBC Troponin I above reference range EKG without ischemia. Mild troponin leak but well below threshold for MT. Echo EF 63%, no sig change versus [...] Mamogram and UPEP and Stress Test with skiver heel tap OK to restart baby ASA NOT restart [...] DISCHARGE INSTRUCTIONS: Follow-up Information Follow up with Rodolfo Cruz MD. (Keep your friday appt) Contact information: [address] [facility] [address] Follow up with JOSE ALBERTO Marcelo. (Have Dr Cruz arrange an appt to see her in about a month from now) Contact information: [address], [address] [facility] [address] Condition: Patient being discharged with condition improved Dr Pandya recommends double dose of PPI for 1 month then single dose Thus Prilosec 20 mg bid X 1 month then can lower to 20 mg daily Diet: Regular Greater than 30 minutes were spent on discharge and coordination of post-hospital care. Electronically signed by: Yoel Carranza MD, 11/05/2013 13:26 [facility] Portions of this chart may have been created with [employer] voice recognition software. Occasi onal wrong-word or [...] might be different fro m the original. [facility] PROGRESS NOTE Patient: Soumya Jackson : 1935: Age: 78 y.o. MedRec: [id number] Admission date: 11/03/2013 Hospital day # : [...] -- No results found for this basename: PHART:3,PO2ART:3,IRQ8HMY:3,SRH5HNX:3,BEART:3,S3NKCHTA:3 in the last 168 hours No results found for this basename: SPECSOURCE:3,PHPOCB:3,FBKBE2VF:3,QDIF7IS:3,HCO3:3,TCO2: 3,BEART:3,BE:3,SBQU4TVT:3 in the last 168 hours Point of [...] last 3 completed shifts: In: 3831 [P.O.:900; I.V.:2024; Blood:907] Out: 5600 [Urine:5600] Vitals Ranges: Temp: [...] troponin leak but well below threshold for MT. Echo EF 63%, no sig change versus [...] Mamogram and UPEP and Stress Test with skiver heel tap OK to restart baby ASA NOT restart Voltaren Advise appt with Merissa in GI clinic in about 1 month. Yoel Carranza MD 11/05/2013 13:14 [facility] Dot phrase reference: VSHOSP (VS in table, last 24 hours) MEYLAB (various labs to pull in) DT (date and time) LABRCNTIP[K:3,Na:3 (last 3 sets of labs using potassium and sodium as examples) HGB HCT PLT INR GLU POCGLU Na K BUN CREA, CALCIUM TROPONINI BNP DIGOXIN DDIMERQUANT Portions of this chart may have been created with [employer] voice recognition software. Occasi onal wrong-word or sound-alike substitutions may have occurred due to the inherent doe itations of voice recognition software. Please read the chart carefully and recognize, using context, where these substitutions have occurred ar Mcgowan RN - 11/04/2013 1:18 PM PDTEGD done. "Hietal Hernia and duodenal ulcer" per report. Pt awake an d alert. 1 unit of PRBC transfused without reaction. [place] 1 tab given for lower back pain w ith good relief of pain. No active bleeding noted. odolfo Montes RRT - 11/04/2013 9:15 AM PDTPt not in roomEle ctronically signed by Rodolfo Montes RRT at 11/04/2013 2:44 PM Yoel Plaza MD - 7:17 AM PDT [facility] PROGRESS NOTE Patient: Soumya Jackson : 1935: Age: 78 y.o. MedRec: [id number] Admission date: 11/03/2013 Hospital day # : [...] -- No results found for this basename: PHART:3,PO2ART:3,RAP4ZLX:3,YZL1OJQ:3,BEART:3,P0YZHKIZ:3 in the last 168 hours No results found for this basename: SPECSOURCE:3,PHPOCB:3,MJJRI8YX:3,UROB6ZS:3,HCO3:3,TCO2: 3,BEART:3,BE:3,XFAR5KIA:3 in the last 168 hours Point of [...] troponin leak but well below threshold for MT. Echo EF 63%, no sig change versus [...] OK Bone Scan tomorrow (maybe) trace from Natalia Discussed mild trop leak and consideration for outpatient Currently wearing her SCDs Dr Pandya said I could start low dose ASA and I told patient will start tomorrow (I will mary it labs though) Yoel Carranza MD 11/04/2013 7:17 [facility] Dot phrase reference: VSHOSP (VS in table, last 24 hours) MEYLAB (various labs to pull in) DT (date and time) LABRCNTIP[K:3,Na:3 (last 3 sets of labs using potassium and sodium as examples) HGB HCT PLT INR GLU POCGLU Na K BUN CREA, CALCIUM TROPONINI BNP DIGOXIN DDIMERQUANT Portions of this chart may have been created with [employer] voice recognition software. Occasi onal wrong-word or [...] [facility] | | | | | | [id number] | | | | | | | | +--------+---------+ + + + | 11/21/ | Office | Cardiology | Yesi, | | | 2019 | Visit | | JOSE ALBERTO Linder [address] | | | [address] [place], | | | | | | [place] [address] | | | | | | [phone] | | | | | | | [...] + | MISCELLANEOUS LAB | | | [phone] | + +---------+ + + | MISCELANIOUS LAB | | | [phone] | + +---------+ + + CBC with [...] | | | Eosinophils | | | [facility] | | [...] + | [facility] | [address] | [place] | [phone] | | [facility] | | [address] | | | - LABORATORY | | | | + + + + + | [facility] | [address] | [place] | | | [facility] | | [address] | | | - LABORATORY | | [...] (L) | 7 - 18 mg/dL | [facility] | | | | | | [facility] | | | | | | MEDICAL | | | | | | CENTER - | | | | | | LABORATORY | | + + + + + + | Creatinine | 0.64 | 0.60 - 1.30 | [facility] | | | | | mg/dL | [facility] | | | | | | MEDICAL | | | | | | CENTER - | | | | | | LABORATORY | | + + + + + + | eGFR if not | >60Comment: GLOMERULAR | >=60 | [facility] | | | | FILTRATION | mL/min/1.73m2 | [facility] | | | [place] | RATE,ESTIMATED | | MEDICAL | | | | mL/min/1.70i1Htyj than | | CENTER - | | [...] | 8.7 | 8.3 - 10.5 | [facility] | [...] + | [facility] | [address] | [place] | [phone] | | [facility] | | [address] | | | - LABORATORY | | | | + + + + + | [facility] | [address] | [place], [place] | | | [facility] | | [address] | | | - LABORATORY | | [...] | Code | Container 1 | | [facility] | | | | | | MEDICAL | | | | | | CENTER - | | | | | | BLOOD BANK | | + + + + + + | UNIT # | [id number] | | [facility] | | | | | | [facility] | | | | | | MEDICAL | | | | | | CENTER - | | | | | | BLOOD BANK | | + + + + + + | UNIT ABO | O | | [facility] | | | | | | [facility] | | | | | | [...] ST. | [address] | [place], [place] | | | [facility] | | [address] | | | - BLOOD BANK | [address] | [place] [facility] | [phone] | | [facility] | | [address] | | | - LABORATORY | | | | + + + + + | [facility] | [address] | [place] | | | [facility] | | [address] | | | - LABORATORY | | [...] + + + | UNIT # | [id number] | | [facility] | | | | [...] | | | INTERP | | | [facility] | | | [...] St | [place] | | | [facility] | | [address] | | | - BLOOD BANK | | | | + + + + + EGD (11/04/2013 8:39 AM PDT) + + | Specimen | + + | | + + + + -+ | Narrative | Performed At | + + -+ | | [facility] | | GastroenterologyPatient Name: Soumya Grimes Date: 11/04/2013 8:39 | [facility] | | AMN: [id number] #: [id number] of : 8Admit | | | Type: InpatientAge: 78Room: [facility] 02Gender: FemaleNote Status: | | | FinalizedAttending MD: Samm Pandya, MDProcedure: | | | Upper GI endoscopyIndications: MelenaProviders: | | | Samm Pandya MD, Mary Acosta RN, Stephie Monsalve, | | | TechnicianReferring MD: Rodolfo Cruz, | | | (Referring MD)Medicines: Cetacaine spray, Fentanyl 100 | [...] the nurse | | | and the failure analysis technician in the 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 Mental Status [...] | 0Note Initiated On: 11/04/2013 8:[address] [facility] | | | [facility], [address] [place] [address] | | | [phone] | | | - Non-bleeding erosive gastropathy. [...] On: 11/04/2013 8:39 AM | | | [facility], [address] [place] [address] | | | [address] | | + + -+ + + | Transcriptions | + + | Anil Greenwood - 11/04/2013 12:00 AM PDT | + [...] + + + | UNIT # | [id number] | | [facility] | | | | [...] St | [place] [facility] | | | [facility] | | [address] | | | - BLOOD BANK | [...] 10.2 | 4.0 - 11.0 K/uL | [facility] [...] + | [facility] | [address] | [place] | [phone] | | [facility] | | [address] | | | - LABORATORY | | | | + + + + + | [facility] | [address] | [place] | | | [facility] | | [address] | | | - LABORATORY | | [...] 2.0 | 1.8 - 2.5 mg/dL | [facility] | | | | [...] + | [facility] | [address] | [place] | [phone] | | [facility] | | [address] | | | - LABORATORY | | | | + + + + + | [facility] | [address] | [place] | | | [facility] | | [address] | | | - LABORATORY | | [...] | | | Eosinophils | | | [facility] | | | | [...] + | [facility] | [address] | [place] | [phone] | | [facility] | | [address] | | | - LABORATORY | | | | + + + + + | [facility] | [address] | [place] | | | [facility] | | [address] | | | - LABORATORY | | [...] | | | | mmol/L | [facility] | | | | [...] (L) | 7 - 18 mg/dL | [facility] | | | | | | [facility] | | | | | | MEDICAL | | | | | | CENTER - | | | | | | LABORATORY | | + + + + + + | Creatinine | 0.59 (L) | 0.60 - 1.30 | [facility] | | | | | mg/dL | [facility] | | | | | | MEDICAL | | | | | | CENTER - | | | | | | LABORATORY | | + + + + + + | eGFR if not | >60Comment: GLOMERULAR | >=60 | [facility] | | | | FILTRATION | mL/min/1.73m2 | [facility] | | | [place] | RATE,ESTIMATED | | MEDICAL | | | | mL/min/1.79w9Mpyg than | | CENTER - | | [...] + | [facility] | [address] | [place], [place] | [phone] | | [facility] | | [address] | | | - LABORATORY | | | | + + + + + | [facility] | [address] | [place], [place] | | | [facility] | | [address] | | | - LABORATORY | | [...] + + + | UNIT # | [id number] | | [facility] | | | | [...] + | [facility] | [address] | [place] | | | [facility] | | [address] | | | - BLOOD BANK | [...] + + | Performing | Address | City[facility] | Phone Number | | Organization | | | | + + + + + | [facility] | [address] | [place] | [phone] | | [facility] | | [address] | | | - LABORATORY | | | | + + + + + | [facility] | [address] | [place] | | | [facility] | | [address] | | | - LABORATORY | | [...] | | | | | | [employer] | | | | | [...] + | [facility] | [address] | [place] | [phone] | | [facility] | | [address] | | | - LABORATORY | | | | + + + + + | [facility] | [address] | [place], [place] | | | [facility] | | [address] | | | - LABORATORY | | [...] | MPV | 8.7 | fL | [facility] | | | | | [...] [address] | [place] | [phone] | | [facility] | | [address] | | | - LABORATORY | | | | + + + + + | [facility] | [address] | [place] | | | [facility] | | [address] | | | - LABORATORY | | | | + + + + + Troponin I (11/03/2013 5:17 PM PDT) + + + + + + | Component | Value | Ref Range | Performed | Pathologist | | | | | At | Signature | + + + + + + | Troponin I | 0.09 (H)Comment: | <0.06 ng/mL | [facility] | | | | Reference | | [...] | | | | | | [employer] | | | | | [...] + | [facility] | [address] | [place], [place] | [phone] | | [facility] | | [address] | | | - LABORATORY | | | | + + + + + | [facility] | [address] | [place], [place] | | | [facility] | | [address] | | | - LABORATORY | | | | + + + + + Culture, MRSA (11/03/2013 1:15 PM PDT) + + + + + + | Component | Value | Ref Range | Performed | Pathologist | | | | | At | Signature | + + + + + + | Culture | Negative for MRSA by | | [facility] | | | | chromogenic agar method [...] + | [facility] | [address] | [place] [facility] | [phone] | | [facility] | | [address] | | | - LABORATORY | | | | + + + + + | [facility] | [address] | [place] | | | [facility] | | [address] | | | - LABORATORY | | [...] + | [facility] | [address] | [place] | [phone] | | [facility] | | [address] | | | - LABORATORY | | | | + + + + + | [facility] | [address] | [place] | | | [facility] | | [address] | | | - LABORATORY | | | | + + + + + Troponin I (11/03/2013 1:15 PM PDT) + + + + + + | Component | Value | Ref Range | Performed | Pathologist | | | | | At | Signature | + + + + + + | Troponin I | 0.07 (H)Comment: | <0.06 ng/mL | [facility] | [...] | | | | | | [employer] | | | | | [...] + | [facility] | [address] | [place] | [phone] | | [facility] | | [address] | | | - LABORATORY | | | | + + + + + | [facility] | [address] | [place], [place] | | | [facility] | | [address] | | | - LABORATORY | | [...] + | [facility] | [address] | [place] | [phone] | | [facility] | | [address] | | | - LABORATORY | | | | + + + + + | [facility] | [address] | [place] | | | [facility] | | [address] | | | - LABORATORY | | | | + + + + + ECHO Complete (11/03/2013 12:00 PM PDT) + + | Specimen | + + | | + + + + + | Narrative | Performed At | + + + | [facility] ECHOCARDIOGRAM REPORT | | | STUDY DATE: [...] Carito Maher MD PhD | | | [facility] 11/03/2013 12:17 Char Filter Operator Helper: Merlin Dolan, | | | RDMS | | + + + + + | Procedure Note | + + | Ric Maher MD - 11/03/2013 6:59 PM [facility] | | CENTERECHOCARDIOGRAM REPORTSTUDY DATE: 11/03/2013PATIENT NAME: Soumya Daniels: | | 1935MRN: [id number]: Rodolfo Cruz [facility]AGNOSIS: Elevated | | troponinA transthoracic echocardiogram [...] PP mmHgLA volume: 54 mLLA index: 28 mL/n6Soffyy Inflow DT: | | 284 msIVRT: 88 msValsalva: Not neededPWDTI S wave: 8.0 cm/sPWDTI E wave: 6.8 | | cm/sPWDTI A wave: 14.8 cm/sE/A Ratio: 0.46E/E Ratio: 19.52Signed by: Carito Solorio | | MD Nika PhD FACC 11/03/2013 12:17 Char Filter Operator Helper: Merlin Dolan RDMS | |Tricuspid valve: normal [...] | |Signed by: Carito Maher MD PhD FACC | | 11/03/2013 12:17 | | | | | |Char Filter Operator Helper: Merlin Dolan RDMS | + + Protein [...] Interpretat | See Scanned Report | | [facility] | | | ion | Negative for [...] + | [facility] | [address] | [place], [place] | [phone] | | [facility] | | [address] | | | - LABORATORY | | | | + + + + + | [facility] | [address] | [place], [place] | | | [facility] | | [address] | | | - LABORATORY | | [...] | 1.015 | | | | | [place], | | | | | | UA, [...] + | [facility] | [address] | [place], [place] | | | [facility] | | [address] | | | - BLOOD BANK | [...] + | MISCELLANEOUS LAB | | | [phone] | + +---------+ + + | MISCELANIOUS LAB | | | [phone] | + +---------+ + + Troponin I [...] | | | | | | [employer] | | | | | [...] + | [facility] | [address] | [place], [place] | [phone] | | [facility] | | [address] | | | - LABORATORY | | | | + + + + + | [facility] | [address] | [place], [place] | | | [facility] | | [address] | | | - LABORATORY | | [...] | 0.66 | 0.60 - 1.30 | [facility] | | | | | mg/dL | [facility] | | | | | | MEDICAL | | | | | | CENTER - | | | | | | LABORATORY | | + + + + + + | eGFR if not | >60Comment: GLOMERULAR | >=60 | [facility] | | | | FILTRATION | mL/min/1.73m2 | [facility] | | | [place] | RATE,ESTIMATED | | MEDICAL | | | | mL/min/1.84i9Lplj than | | CENTER - | | [...] | | | | | mg/dL | [facility] | | | | | | MEDICAL | | | | | | CENTER - | | | | | | LABORATORY | | + + + + + + | BUN/Creatin | 16.7 | | [facility] | | | ine Ratio | | | . [facility] | | [...] + | [facility] | [address] | [place] | [phone] | | [facility] | | [address] | | | - LABORATORY | | | | + + + + + | [facility] | [address] | [place] | | | [facility] | | [address] | | | - LABORATORY | | [...] + | [facility] | [address] | [place], [place] | [phone] | | [facility] | | [address] | | | - LABORATORY | | | | + + + + + | [facility] | [address] | [place], [place] | | | [facility] | | [address] | | | - LABORATORY | | | | + + + + + documented in this encounter Visit Diagnoses + + | Diagnosis | + + | GI bleed - Primary Hemorrhage of gastrointestinal tract, unspecified | + + | Troponin level elevated Other abnormal blood chemistry | + + | Back pain Backache, unspecified | + + | Asthma Unspecified asthma | + + | Hypertension Unspecified essential hypertension | + + | Thoracic sprain and strain, subsequent encounter | + + | Hypothyroidism Unspecified hypothyroidism | + + | Anemia due to blood loss, acute Acute posthemorrhagic anemia | + + | GERD Esophageal reflux | + + | Valvular heart disease Endocarditis, valve unspecified, unspecified cause | + + | Lacunar infarction (HCC) Unspecified cerebral artery occlusion with cerebral | | infarction | + + | DJD (degenerative joint disease) Osteoarthrosis, unspecified whether generalized or | | localized, unspecified site | + + | Troponin I above reference range Other abnormal blood chemistry | + + | Lytic lesion of bone on x-ray Disorder of bone and cartilage, unspecified | + + documented in this encounter Administered Medications + +--------+ +------+------+------+ | Medication Order | MAR | Action | Dose | Rate | Site | | | Action | Date | | | | + +--------+ +------+------+------+ | amLODIPine (NORVASC) tablet 5 | Given | 11/06/19 | 5 mg | | | | mg 5 mg, Oral, DAILY, First dose | | 14 8:44 | | | | | on Fri11/04/13 at 0900, Hold if | | AM PDT | | | | | SBP less than 100, | | | | | | + +--------+ +------+------+------+ +-------+ +------+---+---+ | Given | 11/05/19 | 5 mg | | | | | 14 10:24 | | | | | | AM PDT | | | | +-------+ +------+---+---+ +---+---+ | | | +---+---+ + +-------+ +---------+---+---+ | oejbrwnj-ggemljjdrc-nkmawomaqr | Given | 11/05/19 | 1 spray | | | | (CETACAINE) spray PRN, Starting | | 14 8:44 | | | | | Roxy 11/04/13 at 0844 | | AM PDT | | | | + +-------+ +---------+---+---+ +---+---+ | | | +---+---+ + + + +---+-------+---+ | dextrose 5% and sodium chloride | Rate/Dos | 11/05/19 | | 100 | | | 0.9% with KCl 20 mEq/L (D5 NS + | e Verify | 14 5:00 | | mL/hr | | | KCL 20) infusion at 100 mL/hr, | | AM PDT | | | | | Intravenous, CONTINUOUS, Starting | | | | | | | 11/03/13 at 1315 | | | | | | + + + +---+-------+---+ + + +---+-------+---+ | New Bag | 11/05/19 | | 100 | | | | 14 12:26 | | mL/hr | | | | AM PDT | | | | + + +---+-------+---+ | Rate/Dose Verify | 11/04/19 | | 100 | | | | 14 10:00 | | mL/hr | | | | PM PDT | | | | + + +---+-------+---+ +---+---+ | | | +---+---+ + +-------+ +---------+---+---+ | fentaNYL injection PRN, Pain, | Given | 11/05/19 | 100 mcg | | | | Starting Roxy 11/04/13 at 0846 | | 14 8:46 | | | | | | | AM PDT | | | | + +-------+ +---------+---+---+ +---+---+ | | | +---+---+ + +-------+ + +---+---+ | HYDROcodone-acetaminophen | Given | 11/05/19 | 1 tablet | | | | (NORCO) 7.5-325 mg per tablet 1 | | 14 6:07 | | | | | tablet 1 tablet, Oral, EVERY 6 | | PM PDT | | | | | HOURS PRN, Pain, Starting Wed | | | | | | | 11/03/13 at 1253, Maximum | | | | | | | acetaminophen is 4000 mg/day from | | | | | | | all sources, | | | | | | + +-------+ + +---+---+ +-------+ + +---+---+ | Given | 11/05/19 | 1 tablet | | | | | 14 11:06 | | | | | | AM PDT | | | | +-------+ + +---+---+ | Given | 11/05/19 | 1 tablet | | | | | 14 5:18 | | | | | | AM PDT | | | | +-------+ + +---+---+ +---+---+ | | | +---+---+ + +-------+ +--------+---+---+ | HYDROmorphone (DILAUDID) | Given | 11/04/19 | 0.5 mg | | | | injection 0.4-0.8 mg 0.4-0.8 mg, | | 14 5:43 | | | | | Intravenous, EVERY 2 HOURS PRN, | | PM PDT | | | | | Pain, Starting Fri11/03/13 at | | | | | | | 1253, Use IV morphine first if | | | | | | | ordered. Slow IV push, not faster | | | | | | | than 0.25 mg/minute. If | | | | | | | ineffective or not tolerated and | | | | | | | unable to take oral opioid - | | | | | | | contact MD., | | | | | | + +-------+ +--------+---+---+ +---+---+ | | | +---+---+ + +-------+ +--------+---+---+ | HYDROmorphone (DILAUDID) | Given | 11/04/19 | 0.5 mg | | | | injection 0.5 mg 0.5 mg, | | 14 8:23 | | | | | Intravenous, EVERY 15 MIN PRN, | | AM PDT | | | | | Pain, Starting Fri11/03/13 at | | | | | | | 0801, For 4 doses | | | | | | + +-------+ +--------+---+---+ +---+---+ | | | +---+---+ + +-------+ +---------+---+---+ | levothyroxine (SYNTHROID, | Given | 11/06/19 | 125 mcg | | | | LEVOTHROID) tablet 125 mcg 125 | | 14 7:05 | | | | | mcg, Oral, DAILY BEFORE | | AM PDT | | | | | BREAKFAST, First dose on Fri | | | | | | | 11/03/13 at 1315, Give before | | | | | | | breakfast., | | | | | | + +-------+ +---------+---+---+ +-------+ +---------+---+---+ | Given | 11/05/19 | 125 mcg | | | | | 14 7:35 | | | | | | AM PDT | | | | +-------+ +---------+---+---+ | Given | 11/04/19 | 125 mcg | | | | | 14 2:13 | | | | | | PM PDT | | | | +-------+ +---------+---+---+ +---+---+ | | | +---+---+ + +-------+ +-------+---+---+ | metoprolol succinate | Given | 11/06/19 | 25 mg | | | | (TOPROL-XL) ER tablet 25 mg 25 | | 14 8:44 | | | | | mg, Oral, DAILY, First dose on | | AM PDT | | | | | 11/03/13 at 1315, Tablet may | | | | | | | be cut where scored but do not | | | | | | | crush. Hold if SBP less than 89, | | | | | | + +-------+ +-------+---+---+ +-------+ +-------+---+---+ | Given | 11/05/19 | 25 mg | | | | | 14 10:24 | | | | | | AM PDT | | | | +-------+ +-------+---+---+ | Given | 11/04/19 | 25 mg | | | | | 14 2:14 | | | | | | PM PDT | | | | +-------+ +-------+---+---+ +---+---+ | | | +---+---+ + +-------+ +------+---+---+ | midazolam (VERSED) 5 mg/mL | Given | 11/05/19 | 1 mg | | | | injection PRN, Anxiety, Starting | | 14 8:52 | | | | | Roxy 11/04/13 at 0849 | | AM PDT | | | | + +-------+ +------+---+---+ +-------+ +------+---+---+ | Given | 11/05/19 | 2 mg | | | | | 14 8:49 | | | | | | AM PDT | | | | +-------+ +------+---+---+ +---+---+ | | | +---+---+ + +-------+ +------+---+---+ | ondansetron (ZOFRAN) injection | Given | 11/04/19 | 4 mg | | | | 4 mg 4 mg, Intravenous, ONCE, | | 14 8:23 | | | | | 11/03/13 at 0830, For 1 dose | | AM PDT | | | | + +-------+ +------+---+---+ +---+---+ | | | +---+---+ + +---------+ +---------+ +---+ | pantoprazole (PROTONIX) 0.8 | New Bag | 11/05/19 | 8 mg/hr | 10 mL/hr | | | mg/mL in sodium chloride 0.9% 100 | | 14 4:08 | | | | | mL infusion 8 mg/hr (rounded to | | PM PDT | | | | | 10 mL/hr), at 10 mL/hr, | | | | | | | Intravenous, CONTINUOUS, Starting | | | | | | | 11/03/13 at 0915 | | | | | | + +---------+ +---------+ +---+ + + +---------+ +---+ | New Bag | 11/05/19 | 8 mg/hr | 10 mL/hr | | | | 14 7:35 | | | | | | AM PDT | | | | + + +---------+ +---+ | Rate/Dose Verify | 11/05/19 | 8 mg/hr | 10 mL/hr | | | | 14 5:00 | | | | | | AM PDT | | | | + + +---------+ +---+ +---+---+ | | | +---+---+ + +-------+ +-------+---+---+ | pantoprazole (PROTONIX) | Given | 11/06/19 | 40 mg | | | | injection 40 mg 40 mg, | | 14 8:44 | | | | | Intravenous, 2 TIMES DAILY, First | | AM PDT | | | | | dose on [facility] 11/04/13 at 2300, If | | | | | | | reconstituting, mix each 40 mg | | | | | | | vial with 10 mL NS to make 4 | | | | | | | mg/mL., | | | | | | + +-------+ +-------+---+---+ +-------+ +-------+---+---+ | Given | 11/05/19 | 40 mg | | | | | 14 11:14 | | | | | | PM PDT | | | | +-------+ +-------+---+---+ +---+---+ | | | +---+---+ + +-------+ +-------+---+---+ | pantoprazole (PROTONIX) | Given | 11/04/19 | 80 mg | | | | injection 80 mg 80 mg, | | 14 8:48 | | | | | Intravenous, ONCE, Fri11/03/13 at | | AM PDT | | | | | 0915, For 1 dose, If | | | | | | | reconstituting, mix each 40 mg | | | | | | | vial with 10 mL NS to make 4 | | | | | | | mg/mL., | | | | | | + +-------+ +-------+---+---+ +---+---+ | | | +---+---+ + +---------+ +--------+-------+---+ | sodium chloride 0.9% bolus | New Bag | 11/04/19 | 1,000 | 2000 | | | 1,000 mL 1,000 mL, Intravenous, | | 14 8:30 | mLs | mL/hr | | | Administer over 30 Minutes, ONCE, | | AM PDT | | | | | 11/03/13 at 0830, For 1 dose | | | | | | + +---------+ +--------+-------+---+ +---+---+ | | | +---+---+ + +-------+ + +---+---+ | technetium [id number] medronate | Given | 11/06/19 | 25 | | | | (MDP) injection 25 millicurie 25 | | 14 7:59 | -millicu | | | | -millicurie, Intravenous, ONCE | | AM PDT | kash | | | | PRN, Other, Starting 11/05/13 | | | | | | | at 0759, For 1 dose, Nuclear | | | | | | | Medicine | | | | | | + +-------+ + +---+---+ +---+---+ | | | +---+---+ documented in this encounter
--- OUTSIDE RECORDS SUMMARY | ~2019-04-12 | XMS | Encounter Summary ---
Demographics + + + | Address | [address] | | | [place] [address] | + + + | Home Phone [...] | [facility] [place] | | | and [place]ana | + + + | Organization | [facility] [place] | | | and [...] | | | | | [place] [address] | | + + + + + | Hunter Jackson | ECON | [place], [place] | | + + + + + | Wes Jackson | ECON | [place], [place] | | + + + + + | Oziel Jackson | ECON | [place], [place] | | + + + + + Care Team Providers + +------+ + | Care Junior Accountant Name | Role | Phone | + [...] Nuclear | | | | | | [place], | Medicine | | | | | Hyperlipidem | Niyah, OVERNIGHT HOUSEPERSON | [address] | | | | | ia, mixed | [address] | [place], | | | | | Chest pain, | [address] | [place] | | | | | unspecified | [place], | [address] | | | | | type | [place] | Phone: | | | | | Procedures | [address] | [phone] | | | | | [place] Nuclear | Phone: | Fax: | | | | | Stress Test | [phone] | [phone] | | | | | (Vasodilator | Fax: | | | | | | ) CHG | [phone] | | | | | | MYOCARDIAL | | | | | | | SPECT | | | | | | | MULTIPLE | | | | | | | STUDIES RI | | | | | | | CV STRS TST | | | | | | | XERS&/OR RX | | | | | | | CONT ECG W/O | | | | | | | I&R RI | | | | | | | [...] | Radiology | Diagnoses | | [facility] | | | | | Essential | Yesi, | [address] | | | | | hypertension | JOSE ALBERTO Harry | [place], | | | | | with goal | [address] | [place] | | | | | blood | [address] | [address] | | | | | pressure | [place], | Phone: | | | | | less than | [place] | [phone] | | | | | 130/80 | [address] | Fax: | | | | | [place] | Phone: | [phone] | | | | | Procedures | [phone] | | | | | | ECHO | Fax: | | | | | | Complete RI | [phone] | | | | | | ECHO HEART | | | | | | | XTHORACIC,CO | | | | | | | MPLETE W | | | | | | | DOPPLER RI | | | | | | | ECHO HEART | | | | | | | XTHORACIC,CO | | | | | | | MPLETE, W/O | | | | | | | DOPPLER | | | +--------+--------+ + + + + Reason for Visit + + + | Reason | Comments | + + + | Annual Assessment | | + + + | Hypertension | | + + + Follow Up (Routine) +--------+--------+ + + + + | Status | Reason | Specialty | Diagnoses / | Referred By | Referred To | | | | | Procedures | Contact | Contact | +--------+--------+ + + + + | Closed | | Cardiology | Diagnoses | Poste, | Mendez, | | | | | Abnormal | MD Angelica | MD Christopher | | | | | stress test | [address] | [address] | | | | | Procedures | EULOGIO | [address] | | | | | [address] - | [address] | [place], | | | | | ESTABLISHED | [place], | [place] [address] | | | | | SUW PT | [place] [address] | Phone: | | | | | | Phone: | [phone] | | | | | | [phone] | Fax: | | | | | | Fax: | [phone] | | | | | | [phone] | | +--------+--------+ + + + + Encounter Details +--------+---------+ + + + | Date | Type | Department | Care Team | Description | +--------+---------+ + + + | 07/03/ | Office | [facility] | Yesi, | Essential | | 2017 | Visit | CARDIOLOGY [address] | JOSE ALBERTO Harry [address] | hypertension with | | | | [address] [place], | [address] [place], | goal blood pressure | | | | [place] [address] | [place] [address] | less than 130/80 | | | | [phone] | [phone] | (Primary Dx); | | | | | | [place]; | | | | | | Hyperlipidemia, | | | | | | mixed; Chest pain, | | | | | | unspecified type | +--------+---------+ + + + Social History [...] + + + | Blood Pressure | 122/62 | 07/03/2016 3:10 PM | | | | | PST | | + + + + + | Pulse | 62 | 07/03/2016 3:10 PM | | | | | PST | | + + + + + | Temperature | - | - | | + + + + + | Respiratory Rate | 14 | 07/03/2016 3:10 PM | | | | | PST | | + + + + + | Oxygen Saturation | - | - | | + + + + + | Inhaled Oxygen | - | - | | | Concentration | | | | + + + + + | Weight | 80.3 kg (177 lb) | 07/03/2016 3:10 PM | | | | | PST | | + + + + + | Height | 162.6 cm (5' 4") | 07/03/2016 3:10 PM | | | | | PST | | + + + + + | Body Mass Index | 30.38 | 07/03/2016 3:10 PM | | | | | PST | | + + + + + documented in this encounter Patient Instructions Patient Instructions Niyah Key ARNP - 07/03/2016 3:56 PM PST1. Bring blood press ure to get calibrated 2. Persantine/Lexiscan Myoview Date: Check-in Time: Where to Check In: Instructions 1. Nothing to eat or drink anything 6 hours prior to Persantine/Lexiscan 2. DO NOT drink caffeine 12 hours prior to the test. 3. DO NOT take any Metoprolol or Nitro SL the night before or the morning of the test. 4. You can take all other medications the morning of the test with a small sip of water. 5. Please bring a list of your current medications with you. Resting Portion of test: Date: Check-in Time: Where to Check In: Echo: Date: Check-In Time: Where to Check In: 3. Bring blood pressure readings to your next appointment 4. Start Nitroglycerin 0.4 mg sublingual 5. Follow up appointment: 2-4 weeks Provider: JOSE ALBERTO Bro Date: Check-In Time: documented in this encounter Progress Notes Niyah Key ARNP - 07/03/2016 3:03 PM PSTFormatting of this note might be differen t from the original. PATIENT NAME: Jaclyn Jackson : 1935: AGE: 80 y.o. PRIMARY CARE: In System Provider Not OUTPATIENT FOLLOW UP VISIT Date of Service: 07/03/2016 HISTORY OF PRESENT ILLNESS: Jaclyn Jackson is a 80 y.o. female with a history of essential moderate aortic valve insu fficiency, essential hypertension, osteoarthritis, hypothyroidism, dyslipidemia, elevated CR P. She is being seen today for follow up aortic valve insufficiency, hypertension. She was last seen 05/23/2015 at which time she was to continue same therapeutic medical reg imen and follow-up in one year. Since that time, he was hospitalized on 05/08/2016 with his tory of chest pain of 2 weeks in the evenings. She was discharged home with instructions to undergo stress test, continue with baby aspirin. She has had a fair energy level. She has not been very active. She was going to [employer] 3 times a week but stopped the last 2 months . She has had exertional chest disomfort.This also happens at rest and almost daily. It las t a couple of minutes at the time. She has had shortness of breath with exertion of walkin g or even trying to sign at latter-day. She has not had any lightheadedness or dizziness. She has not noticed palpitations. She has not had leg swelling. She sleeps on 1 pillow at nigh t without any shortness of breath. She has not tried NTG for the chest pain. She bring her blood pressure log that shows blood pressures of 140-160 mmHg systolic. MEDICAL, SURGICAL, AND PERSONAL HISTORY Past Medical, [...] rhinitis Hives of unknown origin Stress reaction CURRENT MEDICATIONS Current Outpatient Prescriptions Medication Sig [...] o n the RaNITidine HCl (RANITIDINE ACID STATION USHER PO) Take 1 tablet by mouth Daily. [...] ROS Review of Systems Constitutional: Negative for fever, chills, weight loss, malaise/fatigue and diaphoresis. HENT: Negative for congestion, hearing loss, nosebleeds and tinnitus. Dental Problems = No Eyes: Negative for blurred vision and double vision. Respiratory: Positive for shortness of breath. Cardiovascular: Positive for chest pain ("chest pressure"). Negative for palpitations and l eg swelling. Gastrointestinal: Negative for nausea, vomiting, diarrhea, constipation and blood in stool. Genitourinary: Negative for dysuria, urgency, frequency and hematuria. Musculoskeletal: Positive for myalgias, back pain and joint pain. Negative for falls and ne ck pain. Gait Problems = No Skin: Positive for rash. Negative for itching. Neurological: Positive for weakness. Negative for dizziness, tingling, tremors, speech mackey ge, seizures and loss of consciousness. Lightheaded = No Endo/Heme/Allergies: Does not bruise/bleed easily. Psychiatric/Behavioral: Negative for memory loss. The patient is not nervous/anxious and do es not have insomnia. OBJECTIVE: PHYSICAL EXAM BP 122/62 mmHg | Pulse 62 | Resp 14 | Ht 1.626 m (5' 4") | Wt 80.287 kg (177 lb) | BMI 30.3 7 kg/m2 Physical Exam Constitutional: She appears well-developed [...] (interpreted and bree led by another provider): Performed in office visit 07/03/16 ECG 12 lead Narrative Shows a sinus rhythm with a premature atrial complexes heart rate of 64 bpm no acute change s LAB RESULTS reviewed during visit today primarily from [facility]: LIPID Lab Results Component Value Date [...] PLTEX 381 05/08/2016 I reviewed records from [facility] for emergency department visit on 04/12 which is summarized in the HPI. Stress Test 05/16/16, is maximal asymptomatic stress test, however very poor function statu s, achieving maximal heart rate with 1 minute and 23 seconds, there was a questionable ST de pression 1 mm in the lateral leads, however, there was some degree of artifact, moderate ris k on Kirk score of 1, recommend stress imaging modality. Above data and testing is reviewed this visit; testing below is historical data unless othe rwise specified. ASSESSMENT: 1. Chest pain: A. Seen in the emergency room at [facility] for chest pain. She was schedule for stres s test and discharged home. B. Stress Test 05/16/16, is maximal asymptomatic stress test, however very poor function s tatus, achieving maximal heart rate with 1 minute and 23 seconds, there was a questionable S T depression 1 mm in the lateral leads, however, there was some degree of artifact, moderate risk on Kirk score of 1, recommend stress imaging modality. C. She comes with angina dn chest pressure over the chest area that happen at rest and on exertion almost daily. She also has increase dyspnea with exertion and she has decrease her physical activity significantly over the last 2 months partially due to the weather. There i s no signs and symptoms of overt congestive heart failure.She is in a class II of [employer] functional class. There is no fluid retention on physical examination. Because of an inconclusive straight treadmill stress test, patient will be a candidate for nuclear stress test. She also will do a trial of NTG SL and a recheck echocardiogram. 2. Essential hypertension with goal blood pressure less than 130/80: A. Today, blood pressure is elevated, she will calibrate cuff and r e-do log. 3. Heart murmur due to aortic valve [...] other statins at this point. PLAN: 1. Calibrate blood pressure machine and do a new log. If it remains elevated the Metoprolol could be increased. 2. Start NTG 0.4 SL PRN for chest pain 3. Schedule patient for pharmacological stress test and echocardiogram for chest pain and i ncrease dyspnea on exertion 4. Follow up appointment in 4 weeks. Patient has been encouraged to go back to regular exer cise. Portions of this chart may have been created with [employer] voice recognition software. Occasi onal wrong-word or [...] 2019 | Visit | | JOSE ALBERTO Harry [address] | | | | | | [place], | | | | | | [place] [address] | | | | | | [phone] | | | | | | | | +--------+---------+ + + + documented as of this encounter Procedures + +--------+ + + + | Procedure Name | Priori | Date/Time | Associated Diagnosis | Comments | | | ty | | | | + +--------+ + + + | ECG 12 LEAD | Routin | 07/03/2016 | Essential | Results for this | | | e | 3:12 PM | hypertension with | procedure are in the | | | | PST | goal blood pressure | results section. | | | | | less than 130/80 | | | | | | [place] | | + +--------+ + + + | LABS - EXTERNAL SCAN | | 04/30/2016 | | Results for this | | [...] study with a normal left ventricular | [facility] | | size and wall thickness. Preserved left ventricular systolic | [facility] | | function. LVEF by gated SPECT 75%. Signed by: Christopher | - IMAGING | | MD Mendez [facility] 07/16/2016, 13:12 | | + + + + + + | Narrative | Performed At | + + + | NUCLEAR MEDICINE STRESS TEST REPORT | [facility] | | Patient Name: Jaclyn Jackson Study Date: 07/16/2016 Primary Care | [facility] | | Provider: FLORA Morgan : 1935 Age: | MEDICAL [facility]ENTER | | 80 y.o. Gender: female [...] | + + + + + | [facility] | [address] | [place] | [phone] | | [facility] | | [address] | | | - IMAGING | | | | + + + + + ECHO Complete (07/16/2016 10:38 AM PST) + +-------+ + + + | Component | Value | Ref Range | Performed | Pathologist | | | | | At | Signature | + +-------+ + + + | LVEF-TTE | 69 | | [facility] | | | [facility] | | | 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 | | | Procedure dateDate: 07/16/2016Start: 10:08 AM Technical Quality: | | | Adequate visualizationStudy Location: Echo LabIndications: Aortic | | | Insufficiency 424.1/I35.1.Patient Status: RoutineHeight: 64 | | | inchesWeight: 177 poundsBSA: 1.86 m^2BMI: 30.38 kg/m^2Rhythm: Normal | | | Sinus Rhythm ConclusionsSummary1. Mild left atrial dilatation.2. | | | Normal left ventricular size, wall thickness and motion. Preserved | | | leftventricular systolic function. LVEF is 65-70%.3. Grade 1 left | | | ventricular diastolic dysfunction.4. Mildly thickened trileaflet | | | aortic valve with adequate opening. There danny mild aortic valve | | | insufficiency.5. Mildly thickened and calcified mitral valve with a | | | mild mitral valveregurgitant.6. A 0.7 x 1.2 x 1.8 cm hyperechoic, | | | calcified nodule attached on posteriormitral valve leaflet.7. Normal | | | right-sided pressure.8. Normal IVC with normal respiratory collapse.9. | | | When compared to echocardiography on 10/25/14, posterior mitral | | | valveleaflet calcified nodule is a new finding. | | | Signature | | | | | | PM | | | -------- FindingsMitral ValveThickening and calcification of the | | | mitral valve leaflets.Mild mitral regurgitation present.A 0.7 x 1.2 x | | | 1.8 cm in diameter calcified nodule attached to the posteriormitral | | | valve leaflet.Aortic ValveAortic valve appears trileaflet.Mild aortic | | | regurgitation is noted.Tricuspid ValveStructurally normal tricuspid | | | valve with mild regurgitation.Pulmonic ValveStructurally normal | | | pulmonic valve with mild regurgitation.Left AtriumThe left atrium is | | | mildly dilated.Left VentricleLeft ventricle is normal in size and | | | function. Ejection fraction isestimated at 65-70 %.Impaired relaxation | | | compatible with diastolic dysfunction (reversed E/Aratio).Right | | | AtriumNormal right atrium.Right VentricleNormal right ventricular | | | structure and function.Pericardial EffusionNo evidence of pericardial | | | effusion. MiscellaneousNormal aortic root.The IVC appears normal.IVC | | | respiratory change in dimension > 50%. Valves Mitral Valve Peak | | | E-Wave: 0.92 m/s Peak A-Wave: 1.31 m/s Tissue Doppler Septal e' | | | Velocity: 0.05 m/s Septal E/e' Ratio:17.09 Aortic Valve Tricuspid | | | Valve TR Velocity: 2.37 m/s Structures Left Atrium LA A/P | | | Dimension: 4.63 cm LA Area: 16.62 cm^2 | | | LA Vol/BSA Index: 27 mL/m^2 LA Volume: | | | 50.56 ml | | | EF Xdaolwbpp97% Left Ventricle Diastolic Dimension: 5.07 | | | cm Systolic Dimension: 3 cm Septum Diastolic: 0.9 cm PW | | | Diastolic: 0.93 cm EF Calculated: 69% Miscellaneous Aorta Aortic | | | Root: 3.03 cm Ascending Aorta: 3.66 cm | | | | | | Electronically signed by CHRISTOPHER ARECHIGA MD(Interpreting physician) on | | | 07/16/2016 12:58 PM | | | | | | | | |Findings | | |Mitral Valve | | |Thickening and calcification of the mitral valve leaflets. | | |Mild mitral regurgitation present. | | |A 0.7 x 1.2 x 1.8 cm in diameter calcified nodule attached to the posterior | | |mitral valve leaflet. | | |Aortic Valve | | |Aortic valve appears trileaflet. | | |Mild aortic regurgitation is noted. | | |Tricuspid Valve | | |Structurally normal tricuspid valve with mild regurgitation. | | |Pulmonic Valve | | |Structurally normal pulmonic valve with mild regurgitation. | | |Left Atrium | | |The left atrium is mildly dilated. | | |Left Ventricle | | |Left ventricle is normal in size and function. Ejection fraction is | | |estimated at 65-70 %. | | |Impaired relaxation compatible with diastolic dysfunction (reversed E/A | | |ratio). | | |Right Atrium | | |Normal right atrium. | | |Right Ventricle | | |Normal right ventricular structure and function. | | |Pericardial Effusion | | |No evidence of pericardial effusion. | | | | | |Miscellaneous | | |Normal aortic root. | | |The IVC appears normal. | | |IVC respiratory change in dimension > 50%. | | | | | |Valves | | | | | | Mitral Valve | | | | | | Peak E-Wave: 0.92 m/s | | | Peak A-Wave: 1.31 m/s | | | | | | Tissue Doppler | | | | | | Septal e' Velocity: 0.05 m/s | | | Septal E/e' Ratio:17.09 | | | | | | Aortic Valve | | | | | | Tricuspid Valve | | | | | | TR Velocity: 2.37 m/s | | | | | |Structures | | | | | | Left Atrium | | | | | | LA A/P Dimension: 4.63 cm LA Area: 16.62 cm^2 | | | LA Vol/BSA Index: 27 mL/m^2 LA Volume: 50.56 ml | | | EF Bpicnhhtt21% | | | | | | Left Ventricle | | | | | | Diastolic Dimension: 5.07 cm Systolic Dimension: 3 cm | | | Septum Diastolic: 0.9 cm | | | PW Diastolic: 0.93 cm | | | EF Calculated: 69% | | | | | | Miscellaneous | | | | | | Aorta | | | | | | Aortic Root: 3.03 cm | | | Ascending Aorta: 3.66 cm | | | | | + +-- + + + | Procedure Note | + + | Zoltan Macedo Results In - 07/16/2016 12:59 PM PST Transthoracic Echocardiography Report | | (TTE) Demographics Patient Name MANUEL ANAYA Room Number DEION | | Patient Number [id number] Date of Study 07/16/2016 Visit Number | | [id number] Referring Physician YG HARRY Number | | Date of 1935 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 Mild left atrial dilatation.2. Normal left ventricular size, | | wall thickness and motion. Preserved leftventricular systolic function. LVEF is | | 65-70%.3. Grade 1 left ventricular diastolic dysfunction.4. Mildly thickened trileaflet | | aortic valve with adequate opening. There danny mild aortic valve insufficiency.5. Mildly | | thickened and calcified mitral valve with a mild mitral valveregurgitant.6. A 0.7 x 1.2 | | x 1.8 cm hyperechoic, calcified nodule attached on posteriormitral valve leaflet.7. | | Normal right-sided pressure.8. Normal IVC with normal respiratory collapse.9. When | | compared to echocardiography on 10/25/14, posterior mitral valveleaflet calcified nodule | | is a new | | finding.Signature | | ----- Electronically signed by CHRISTOPHER ARECHIGA MD(Interpreting physician) on | | 07/16/2016 12:58 | | PM FindingsMi | | tral ValveThickening and calcification of the mitral valve leaflets.Mild mitral | | regurgitation present.A 0.7 x 1.2 x 1.8 cm in diameter calcified nodule attached to the | | posteriormitral valve leaflet.Aortic ValveAortic valve appears trileaflet.Mild aortic | | regurgitation is noted.Tricuspid ValveStructurally normal tricuspid valve with mild | | regurgitation.Pulmonic ValveStructurally normal pulmonic valve with mild | | regurgitation.Left AtriumThe left atrium is mildly dilated.Left VentricleLeft ventricle | | is normal in size and function. Ejection fraction isestimated at 65-70 %.Impaired | | relaxation compatible with diastolic dysfunction (reversed E/Aratio).Right AtriumNormal | | right atrium.Right VentricleNormal right ventricular structure and function.Pericardial | | EffusionNo evidence of pericardial effusion.MiscellaneousNormal aortic root.The IVC | | appears normal.IVC respiratory change in dimension > 50%.Valves Mitral Valve Peak | | E-Wave: 0.92 m/s Peak A-Wave: 1.31 m/s Tissue Doppler Septal e' Velocity: 0.05 m/s | | Septal E/e' Ratio:17.09 Aortic Valve Tricuspid Valve TR Velocity: 2.37 m/sStructures | | Left Atrium LA A/P Dimension: 4.63 cm LA Area: 16.62 cm^2 LA | | Vol/BSA Index: 27 mL/m^2 LA Volume: 50.56 ml | | EF Hdrisblxc42% Left Ventricle Diastolic Dimension: 5.07 cm | | Systolic Dimension: 3 cm Septum Diastolic: 0.9 cm PW Diastolic: 0.93 cm EF | | Calculated: 69% Miscellaneous Aorta Aortic Root: 3.03 cm Ascending Aorta: 3.66 cm | |4. Mildly thickened trileaflet aortic valve with adequate opening. There is | |a mild aortic valve insufficiency. | |5. Mildly thickened and calcified mitral valve with a mild mitral valve | |regurgitant. | |6. A 0.7 x 1.2 x 1.8 cm hyperechoic, calcified nodule attached on posterior | |mitral valve leaflet. | |7. Normal right-sided pressure. | |8. Normal IVC with normal respiratory collapse. | |9. When compared to echocardiography on 10/25/14, posterior mitral valve | |leaflet calcified nodule is a new finding. | | | |Signature | | | | Electronically signed by CHRISTOPHER ARECHIGA MD(Interpreting physician) on | | 07/16/2016 12:58 PM | | | | | |Findings | |Mitral Valve | |Thickening and calcification of the mitral valve leaflets. | |Mild mitral regurgitation present. | |A 0.7 x 1.2 x 1.8 cm in diameter calcified nodule attached to the posterior | |mitral valve leaflet. | |Aortic Valve | |Aortic valve appears trileaflet. | |Mild aortic regurgitation is noted. | |Tricuspid Valve | |Structurally normal tricuspid valve with mild regurgitation. | |Pulmonic Valve | |Structurally normal pulmonic valve with mild regurgitation. | |Left Atrium | |The left atrium is mildly dilated. | |Left Ventricle | |Left ventricle is normal in size and function. Ejection fraction is | |estimated at 65-70 %. | |Impaired relaxation compatible with diastolic dysfunction (reversed E/A | |ratio). | |Right Atrium | |Normal right atrium. | |Right Ventricle | |Normal right ventricular structure and function. | |Pericardial Effusion | |No evidence of pericardial effusion. | | | |Miscellaneous | |Normal aortic root. | |The IVC appears normal. | |IVC respiratory change in dimension > 50%. | | | |Valves | | | | Mitral Valve | | | | Peak E-Wave: 0.92 m/s | | Peak A-Wave: 1.31 m/s | | | | Tissue Doppler | | | | Septal e' Velocity: 0.05 m/s | | Septal E/e' Ratio:17.09 | | | | Aortic Valve | | | | Tricuspid Valve | | | | TR Velocity: 2.37 m/s | | | |Structures | | | | Left Atrium | | | | LA A/P Dimension: 4.63 cm LA Area: 16.62 cm^2 | | LA Vol/BSA Index: 27 mL/m^2 LA Volume: 50.56 ml | | EF Gjjuvsyec34% | | | | Left Ventricle | | | | Diastolic Dimension: 5.07 cm Systolic Dimension: 3 cm | | Septum Diastolic: 0.9 cm | | PW Diastolic: 0.93 cm | | EF Calculated: 69% | | | | Miscellaneous | | | | Aorta | | | | Aortic Root: 3.03 cm | | Ascending Aorta: 3.66 cm | + + + + + + + | Performing | Address | City/State/Zipcode | Phone Number | | Organization | | | | + + + + + | [facility] | [address] | [place] | [phone] | | [facility] | | [address] | | | - IMAGING | | | | + + + + + ECG 12 lead (07/03/2016 3:12 PM PST) + + + + + + | Component | Value | Ref Range | Performed | Pathologist | | | | | At | Signature | + + + + + + | VENTRICULAR | 64 | BPM | [facility] | | | RATE EKG | | | | | + + + + + + | ATRIAL RATE | 64 | BPM | [facility] | | + + + + + + | P-R | 134 | ms | [facility] | | | INTERVAL | | | | | + + + + + + | QRS | 82 | ms | [facility] | | | DURATION | | | | | + + + + + + | Q-T | 402 | ms | [facility] | | | INTERVAL | | | | | + + + + + + | Q-T | 414 | ms | [facility] | | | INTERVAL | | | | | | (CORRECTED) | | | | | + + + + + + | P WAVE AXIS | 59 | degrees | [facility] | | + + + + + + | QRS AXIS | 44 | degrees | [facility] | | + + + + + + | T AXIS | 67 | degrees | [facility] | | + + + + + + | INTERPRETAT | Sinus rhythm with | | [facility] | | | ION TEXT | premature atrial | | | | | | complexesMinimal voltage | | | | | | criteria for LVH, may | | | | | | be normal | | | | | | variantBorderline ECGNo | | | | | | previous ECGs | | | | | | availableConfirmed by | | | | | | CHRISTOPHER ARECHIGA MD | | | | | | ([id number]) on 07/04/2016 | | | | | | 6:13:25 AM | | | | + + + [...] | | | + +---------+ + + LABS - EXTERNAL SCAN (04/30/2016 12:00 AM PST) + + + | Narrative | Performed At | + + + | Ordered by an | | | unspecified provider. | | + + + documented in this encounter Visit Diagnoses + + | Diagnosis | + + | Essential hypertension with goal blood pressure less than 130/80 - Primary | + + | Murmur Undiagnosed cardiac murmurs | + + | Hyperlipidemia, mixed Mixed hyperlipidemia | + + | Chest pain, unspecified type | + + documented in this encounter
--- OUTSIDE RECORDS SUMMARY | ~2019-04-12 | XMS | Clinical Summary ---
Demographics + + + | Address | [address] | | | [place] [address] | + + + | Home Phone | | + + + | Preferred Language | Unknown | + + + | Marital Status | Single | + + + | Voodoo Affiliation [...] Team Providers + +------+ + | Care Bundler Name | Role | Phone | + +------+ + PCP | Unavailable | + +------+ + Source Comments KULDIP is fully live on both [facility] Amb[facility] and [facility] InPatient.[facility] Allergies Not on File Medications Not on [...] | | | | | | | [id number] | | + +--------+ +--------+ + +--------+ | MODA | MODA | [phone] | Effect | [phone] | [address] | [address] | | | [place] | | faiza | 4 | [phone] | | | | [place] | | for | | [place], | | | | | | all | | [place] [address] | | | | | | dates | | | | + +--------+ +--------+ + +--------+ + +--------+ +--------+ + + | Guarantor Name | Accoun | Relation to | Date | Phone | Billing Address | | | t Type | Patient | of | | | | | | | | | | + +--------+ +--------+ + + | Soumya Jacskon | Person | Self | [birth year] | [address] | | | al/Fam | | 1936 | [phone] | [place] [address] | | | saba | | | 9 (Home) | | + +--------+ +--------+ + +"
--- OUTSIDE RECORDS SUMMARY | ~2019-04-12 | XMS | Encounter Summary ---
Demographics + + + | Address | [address] | | | [place] [address] | + + + | Home Phone | | + + + | Preferred Language | Unknown | + + + | Marital Status | | + + + | Mu-Ism Affiliation | Unknown | + + + | Race | Unknown | + + + | Ethnic Group | Unknown | + + + Author + + + | Author | [facility] | | | and [place] | + + + | Organization | [facility] | | [...] | | | | | [place] [address] | | + + + + + | Hunter Jackson | ECON | [place] | | + + + + + | Wes Jackson | ECON | [place], [place] | | + + + + + | Oziel Jackson | ECON | [place], [place] | | + + + + + Care Team Providers + +------+ + | Care Roof Shingler Name | Role | Phone | + [...] + + | 09/24/ | Telephone | [facility] | Rodolfo Cruz, | Therapy Daily | | 2012 | | MEDICINE [facility] [address] | MD [address] | Treatment | | | | [place] | [place] [address] | | | | | [place] [address] | [address] | | | | | [phone] | | | +--------+ + + + [...] | | | | | | [place] [address] | | | | | | [phone] | | | | | | | | +--------+---------+ + + + documented as of this encounter Visit Diagnoses Not on filedocumented in this encounter"
--- OUTSIDE RECORDS SUMMARY | ~2019-04-12 | XMS | Encounter Summary ---
Demographics + + + | Address | [address] | | | [place] [address] | + + + | Home Phone [...] + | Author | [facility] | | | and [place] | + + + | Organization | [facility] | [...] | | | | | [place] [address] | | + + + + + | Hunter Jackson | ECON | [place] | | + + + + + | Wes Jackson | ECON | [place], [place] | | + + + + + | Oziel Jackson | ECON | [place], [place] | | + + + + + Care Team Providers + +------+ + | Care Manager Culinary Name | Role | Phone | + +------+ + | Rodolfo Cruz MD | PCP | | + +------+ + Encounter Details +--------+ + + + + | Date | Type | Department | Care Team | Description | +--------+ + + + + | 06/02/ | Hospital | [facility] | Rodolfo Cruz, | Osteoarthritis | | 2012 - | Encounter | [facility] LAB[facility]ORY | MD [address] | | | | | [address] | [address] [address] | | | 06/04/ | | [place] | [address] | | | 2012 | | [address] | | | | | | [phone] | | | +--------+ + + + [...] STREETER | | | | | | [address] | | | | | | | | +--------+---------+ + + + | 11/21/ | Office | Cardiology | Yesi, | | | 2019 | Visit | | JOSE ALBERTO Linder [address] | | | | | | [place] | | | | | | [place] [address] | | | | | | [phone] | | | | | | | [...] + | [facility] | [address] | [place], [place] | [phone] | | [facility] | | [address] | | | - LABORATORY | | | | + + + + + | [facility] | [address] | [place], [place] | | | [facility] | | [address] | | | - LABORATORY | | [...] [address] | [place] | [phone] | | [facility] | | [address] | | | - LABORATORY | | | | + + + + + | [facility] | [address] | [place] | | | [facility] | | [address] | | | - LABORATORY | | | | + + + + + documented in this encounter Visit Diagnoses + + | Diagnosis | + + | Osteoarthritis Osteoarthrosis, unspecified whether generalized or localized, | | unspecified site | + + documented in this encounter"
--- OUTSIDE RECORDS SUMMARY | ~2019-04-12 | XMS | Encounter Summary ---
Demographics + + + | Address | [address] | | | [place] [address] | + + + | Home Phone [...] Author | [facility] | | | and [place] | + + + | Organization | [facility] | [...] | | | | | [place] [address] | | + + + + + | Hunter Jackson | ECON | [place] | | + + + + + | Wes Jackson | ECON | [place], [place] | | + + + + + | Oziel Jackson | ECON | [place], [place] | | + + + + + Care Team Providers + +------+ + | Care Transplant Nurse Name | Role | Phone | [...] Description | +--------+---------+ + + + | 09/25/ | Office | [facility] | Rodolfo Cruz, | Other allergic | | 2016 | Visit | MEDICINE [address] | [address] | rhinitis (Primary | | | | [address] | [place] [address] | Dx); Essential | | | | [place] [address] | [address] | hypertension, | | | | [phone] | | hypertension with | | | | | | unspecified goal; | | | | | | Acquired | | | | | | hypothyroidism; | | | | | | Depression with | | | | | | anxiety; Allergic | | | | | | rhinitis due to | | | | | | pollen | +--------+---------+ + + + Social History [...] + | Blood Pressure | 130/62 | 09/26/2015 10:49 AM | | | | | PDT | | + + + + + | Pulse | 53 | 09/26/2015 10:49 AM | | | | | PDT | | + + + + + | Temperature | 36.6 C (97.8 F) | 09/26/2015 10:49 AM | | | | | PDT | | + + + + + | Respiratory Rate | 16 | 09/26/2015 10:49 AM | | | | | PDT | | + + + + + | Oxygen Saturation | 98% | 09/26/2015 10:49 AM | | | | | PDT | | + + + + + | Inhaled Oxygen | - | - | | | Concentration | | | | + + + + + | Weight | 83.5 kg (184 lb) | 09/26/2015 10:49 AM | | | | | PDT | | + + + + + | Height | 162.6 cm (5' 4") | 09/26/2015 10:49 AM | | | | | PDT | | + + + + + | Body Mass Index | 31.58 | 09/26/2015 10:49 AM | | | | | PDT | | + + + + + documented in this encounter Progress Notes Rodolfo Cruz MD - 09/26/2015 11:06 AM PDTFormatting of this note might be different f rom the original. Subjective: Patient ID: Soumya Jackson is a 80 y.o. female. HPI Sinusitis Recently treated with abx. There are no Facial swelling or pain . There had bee n no fever, There has been no blood, Her worst symptoms is cough at times, At one point s he was SOB, This has been going on for months. She has not coughed up Blood. She is not not using nasacort as it has not done anything. Her good friend Nae states that she [place] ears to be getting better. HTN, there is no chest pain SOB ankle swelling etc. On lasix and metoprolol without SE. I t gets too high when she eats at [employer] Hypothyroidism, She is on thyroid medication. She is compliant with the dosing. There is n o recent hair loss, skin changes etc. Depression with Anxiety, With Chronic Fatigue, "Overall she is content with her life" "I 'm just tired" She is only taking one tab every other and 1/2 tab every other day. A whole pill made her feel goofy. She is still complying with this. Her friend Nae states torres t this has really outlook. . She had a nervous breakdown in the 60's, At that time her had a breakdown first. She then learned how to accomodate for this following this experience. Her friend thinks she is "doing a little better" She declines couseling She did not fast for her cholesterol panel that was drawn today. Past Medical History: Anemia UGI bleed Pulmonary [...] No Diverticulosis - 05/2002 Past Surgical History: Parathyroidectomy - 05/2004 Colonoscopy No Diverticulosis - 05/2002 Removal Lower Left Nodules - 2004 Broken Outer Bone Left Foot - 2004 Tonsillectomy and adenoidectomy - 1955 Family History: Mother: , cancer, age 83 Gout, Breast [...] the miscarriages or the rest. 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 HEENT: Neg ear pain, No nosebleeds,some rhinorrhea,no trouble swallowing and some sinus pressure. Eyes: Neg for pain and [...] Skin, no gross lesions Assessment: 1. Other allergic rhinitis fluticasone (FLONASE) 50 mcg/nasal spray 2. Essential hypertension, hypertension with unspecified goal 3. Acquired hypothyroidism 4. Depression with anxiety 5. Allergic rhinitis due to pollen Plan: She declines business relations manager or ENT referral. I offered her a counselor. flonase trial. I wolauro prince recommend that she relocate to the [facility]. Otherwise continue current medical regimen. documented in this encounter Plan of Treatment +--------+---------+ + + + | Date | Type | Specialty | Care Team | Description | +--------+---------+ + + + | 06/02/ | Office | Orthopedic Surgery | Ulysses Jensen, | | | 2019 | Visit | | MD Danyn FLANNERY | | | | | | [...] | | | | | | [place] [address] | | | | | | [phone] | | | | | | | | +--------+---------+ + + + documented as of this encounter Visit Diagnoses + + | Diagnosis | + + | Other allergic rhinitis - Primary | + + | Essential hypertension, hypertension with unspecified goal | + + | Acquired hypothyroidism Unspecified hypothyroidism | + + | Depression with anxiety Dysthymic disorder | + + | Allergic rhinitis due to pollen | + + documented in this encounter
--- OUTSIDE RECORDS SUMMARY | ~2019-04-12 | XMS | Encounter Summary ---
Demographics + + + | Address | [address] | | | [place] [address] | + + + | Home Phone | | + + + | Preferred Language | Unknown | + + + | Marital Status | | + + + | Muslim Affiliation | Unknown | + + + | Race | Unknown | + + + | Ethnic Group | Unknown | + + + Author + + + | Author | [facility] | | | and [place] | + + + | Organization | [facility] | | | [...] | | | | | [place] [address] | | + + + + + | Hunter Jackson | ECON | [place] | | + + + + + | Wes Jackson | ECON | [place], [place] | | + + + + + | Oziel Jackson | ECON | [place], [place] | | + + + + + Care Team Providers + +------+ + | Care Orthotic Finish Grinding Technician Name | Role | Phone | + +------+ + | Rodolfo Cruz MD | PCP | | + +------+ + Reason for Visit + + + | Reason | Comments | + + + | Follow-up | Post Lumbar MBB on 03/06/2015 | + + + | Back Pain | mid back pain | + + + Encounter Details +--------+---------+ + + + | Date | Type | Department | Care Team | Description | +--------+---------+ + + + | 05/02/ | Office | [facility] [place] | Yany, | Midline thoracic | | 2014 | Visit | PHYSIATRY [address] | [address] | back pain (Primary | | | | [place], | [place], | Dx) | | | | [place] [address] | [place] [address] | | | | | [phone] | [phone] | | | | | | | [...] + + + | Blood Pressure | 149/78 | 05/02/2015 1:55 PM | | | | | PST | | + + + + + | Pulse | 56 | 05/02/2015 1:55 PM | | | | | PST [...] + + + + | Weight | 85.3 kg (188 lb) | 05/02/2015 1:55 PM | | | | | PST | | + + + + + | Height | 162.6 cm (5' 4") | 05/02/2015 1:55 PM | | | | | PST | | + + + + + | Body Mass Index | 32.27 | 05/02/2015 1:55 PM | | | | | PST | | + + + + + documented in this encounter Patient Instructions Patient Instructions Velvet Slade PA-C - 05/02/2015 2:12 PM PSTTrigger Point injec tions to the thoracic spine. - Ice the area as needed 20 minutes per hour. Multiple times as needed over the next few d ays. - Watch for signs of infection (redness around injection site, swelling, fever) - No strenuous activity for 24-48 hours after the procedure. - Please call the office with questions or concerns. documented in this encounter Progress Notes Velvet Slade PA-C - 05/02/2015 2:16 PM PSTFormatting of this note might be differe nt from the original. CHIEF COMPLAINT: Chief Complaint Patient presents with Follow-up Post Lumbar MBB on 03/06/2015 Back Pain mid back pain HISTORY OF PRESENT ILLNESS: The patient is a 79 y.o. female being seen today in follow-up for complaints of mid back pa in. The patient has been seen for this complaint in the past, with initial visit started b y Dr. Selby. Previously it was recommended that she participate in physical therapy. This was performed over the summer but she cannot see it has improved her symptoms. She rep orts that the symptoms show no change. She then had a medial branch block of the L5/S1 face t joints. I decided to get a block done over steroid injections because she recieves steroi d injections to her shoulders and fingers every 3 months. She received this on 12/09/14 and u nfortunately the medial branch block failed to give her significant relief initially and did not last longer than 2 hours. She then had a medial branch block done on 03/06/15 to the L 4/L5 facet joints, one level above and unfortunately cannot remember how much relief she had from this, nor did she fill in a post-injection questionnaire. Today she complains mostly of the mid back between the shoulder blades. She rates the pain as 3 on scale of 1-10. She describes the pain as aching, worse with pro longed standing, bending, stooping, reaching, and working with her hands while in the kitche n. Her symptoms improve with postural control, working on her core muscles, rest and lying do wn and ice. The patient does describe numbness of the [...] 0 amLODIPine (NORVASC) 5 mg tablet Take 5 mg by mouth Daily. atorvaSTATin (LIPITOR) 10 mg tablet Take 1 [...] topically Daily as needed. 100 g 0 escitalopram (LEXAPRO) 10 mg tablet One po qd (Patient taking differently: Take 10 mg b y mouth Daily. Patient states that she takes 1/2 pill one day and a whole pill the next, alt ernating days) 90 tablet 1 eszopiclone (LUNESTA) 2 MG TABS Take 1 tablet by mouth nightly. 90 tablet 0 fenofibrate (TRICOR) 48 mg tablet TAKE ONE TABLET BY MOUTH EVERY DAY 90 tablet 3 furosemide (LASIX) 20 mg tablet Take 20 mg by mouth as needed for Edema. GARLIC Take 1,250 mg by mouth Daily. [...] EVERY MOR LIDIA BEFORE BREAKFAST 90 tablet 3 magnesium-calcium carbonate (SLOW-MAG) 71.5-119 [...] once o n the UNABLE TO FIND Patient states that she is taking an antibiotic at this time. Unknown na me or dosage. vitamin B-12 (CYANOCOBALAMIN) 1000 MCG tablet Take 1,000 mcg by mouth Daily. Current Facility-Administered Medications Medication Dose Route Frequency Provider Last Rate Last Dose bupivacaine (MARCAINE) 0.5% injection 5 mL 5 mL Subcutaneous Once Velvet Slade PA-C lidocaine 1% injection 5 mL 5 mL Infiltration Once Velvet Slade PA-C ALLERGIES: Allergies Allergen Reactions Diclofenac Sodium Duodenal [...] No abnormal bleeding PHYSICAL EXAMINATION: Filed Vitals: 05/02/15 1355 BP: 149/78 Pulse: 56 PainSc: 3 PainLoc: Back Body mass index is 32.25 kg/(m^2). GENERAL: The patient is well developed [...] has no apparent deficits with short or extermination supervisor memory. 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 -LEFTWARD CURVATURE OF THE UPPER THORACIC SPINE WITHOUT SIGNIFICANT THORACIC DISC PATHOLOGY OR STENOSIS. ASSESSMENT: 1. Midline thoracic back pain PLAN: 1. Regarding the thoracic pain, I would like [...] alcohol. The needle was then advanced into 10 different trigger points and a total of 5 mL each of 0.5% bupivicaine and 1% lidocaine was injected divided between the 10 sites. T he patient was instructed to ice the areas and to watch for signs of infection. I did indicate to her to try and chart her pain and/or relief from the injections so we kno w in the future if the trigger point injections did help and are acceptable to do again. 2. Medications have been reviewed at today's visit with no changes made at this time. She cannot take any NSAIDS due to developing ulcers. She has used voltaren in the past but is n ow using the gel. She does have hydrocodone which provides significant relief. 3. She will follow up as needed. ELECTRONICALLY SIGNED BY: Velvet Slade PA-C, 05/02/2015 documented in t his encounter Plan of [...] 2019 | Visit | | JOSE ALBERTO Ln[address] | | | | | | [place] | | | | | | [place] [address] | | | | | | [phone] | | | | | | | | +--------+---------+ + + + documented as of this encounter Visit Diagnoses + + | Diagnosis | + + | Midline thoracic back pain - Primary | + + documented in this encounter Administered Medications + + + +-------+------+ + | Medication Order | MAR | Action | Dose | Rate | Site | | | Action | Date | | | | + + + +-------+------+ + | bupivacaine (MARCAINE) 0.5% | Given by | 05/02/20 | 5 mLs | | Other | | injection 5 mL 5 mL, | Other | 15 2:43 | | | (Comment | | Subcutaneous, ONCE, 05/02/15 | | PM PST | | | ) | | at 1430, For 1 dose | | | | | | + + + +-------+------+ + +---+---+ | | | +---+---+ + + + +-------+---+ + | lidocaine 1% injection 5 mL 5 | Given by | 05/02/20 | 5 mLs | | Other | | mL, Infiltration, ONCE, Tue | Other | 15 2:44 | | | (Comment | | 05/02/15 at 1430, For 1 dose | | PM PST | | | ) | + + + +-------+---+ + +---+---+ | | | +---+---+ documented in this encounter
--- OUTSIDE RECORDS SUMMARY | ~2019-04-12 | XMS | Encounter Summary ---
Demographics + + + | Address | [address] | | | [place] [address] | + + + | Home Phone [...] | Author | [facility] | | | and [place] | + + + | Organization | [facility] [...] [place] | | | | | [place] [address] | | + + + + + | Hunter Jackson | ECON | [place] | | + + + + + | Wes Jackson | ECON | [place], [place] | | + + + + + | Oziel Jackson | ECON | [place], [place] | | + + + + + Care Team Providers + +------+ + | Care Manager Printing Name | Role | Phone | + [...] + + | 11/22/ | Office | [facility] | Irina Simms, | Coronary artery | | 2017 | Visit | CARDIOLOGY [address] | [address] | disease involving | | | | [place], | [place], | [place] coronary | | | | [place] [address] | [place] [address] | artery of [place] | | | | [phone] | [phone] | heart with unstable | | | [...] Since that time, patient was admitted to [facility] on 11/01/2016 for CABG x3 by [...] cervical Cervical radiculopathy Coronary artery disease involving [place] coronary artery of [place] heart with unstable angina pectoris Stress hyperglycemia [...] reviewed during visit today primarily from [facility]: LIPID Lab Results Component Value Date [...] and lab reports on 11/01/2016-11/06/2016. Refer to maintenance superintendent. Above data and testing is reviewed this visit; testing below is historical data unless othe rwise specified. ASSESSMENT: 1. Coronary artery disease A. Seen at [facility] they had EKG and sent her home stating it was GERD B. Seen in the emergency room at [facility] for chest pain. She was schedule for stre ss test and discharged home. C. Stress Test 05/16/16, is maximal asymptomatic stress test, [facility] very poor function status, achieving maximal heart [...] central AI, no , trace TR, trace PA, normal aorta other than mild c alcification [...] failure.She is in a class I of [place] [employer] functional class. There is bilateral [...] 2017 with JOSE ALBERTO Pham. I Nati lElis am acting as a scribe on behalf [...] 11:38 Electronically signed by: Irina Simms MD [facility] 11/22/2016 Portions of this chart may have [...] | | | | | | [place] [address] | | | | | | [phone] | | | | | | | | +--------+---------+ + + + documented as of this encounter Visit Diagnoses + + | Diagnosis | + + | Coronary artery disease involving [place] post[place] coronary artery of [place] heart with unstable | | angina pectoris (HCC) | + + documented in this encounter
--- OUTSIDE RECORDS SUMMARY | ~2019-04-12 | XMS | Encounter Summary ---
Demographics + + + | Address | [address] | | | [place] [address] | + + + | Home Phone [...] Author | [facility] | | | and [place]ana | + + + | Organization | [facility] | | | [...] | | | | | [place] [address] | | + + + + + | Hunter Jackson | ECON | [place] | | + + + + + | Wes Jackson | ECON | [place], [place] | | + + + + + | Oziel Jackson | ECON | [place], [place] | | + + + + + Care Team Providers + +------+ + | Care Mechanical Piping Designer Name | Role | Phone | [...] | Lumbosacral | Bal, | [address] | | | | | spondylosis | Harsha Moreno MD | [place], | | | | | without | [address] | [place] | | | | | myelopathy | [facility] | [address] | | | | | Procedures | [place] | Phone: | | | | | [place] INJ | [address] | [phone] | | | | | DX/THER AGNT | Phone: | Fax: | | | | | PARAVERT | [phone] | [phone] | | | | | FACET JOINT, | Fax: | | | | | | LUMBAR/SAC, | [phone] | | | | | | 1ST LEVEL | | | | | | | [place] INJ | | | | | | | DX/THER AGNT | | | | | | | PARAVERT | | | | | | | FACET JOINT, | | | | | | | LUMBAR/SAC, | | | | | | | 2ND LEVEL | | | | | | | Bilateral L4 | | | | | | | MBB with L5 | | | | | | | Dorsal root | | | | | | | rami | | | +--------+--------+ + + + + Encounter Details +--------+ + + + + | Date | Type | Department | Care Team | Description | +--------+ + + + + | 12/09/ | Hospital | [facility] | Yayn, | Chronic low back | | 2015 | Encounter | MED CTR XRAY [address] | ANN Verdin [address] | pain; DDD | | | | [address] [place] | [facility], | (degenerative disc | | | | [place] [address] | [place] [address] | disease), lumbar; | | | | [phone] | [phone] | Facet arthritis of | | | | | | lumbar region | | | | | Associate Medical Director, [place] | | +--------+ + + + + [...] +---------+ + + | Blood Pressure | 159/69 | 12/09/2014 1:36 PM | | | | | PDT | | + +---------+ + + | Pulse | 65 | 12/09/2014 1:36 PM | | | | | PDT [...] amLODIPine | Take 1 tablet by | 30 | 11 | 11/18/19 | | | (NORVASC) 10 MG | mouth Daily. | tablet | | [...] tablet by | 90 | 0 | 11/23/19 | | | (LUNESTA) 2 MG | [...] prn pain, | 90 | 0 | 10/14/19 | | | HYDROcodone-acetamin | avoid routine [...] tablet by | 90 | 0 | 11/03/19 | | | (SYNTHROID, | mouth every morning | tablet | | 15 | 5 | | LEVOTHROID) 100 mcg | (before breakfast). | | | | | | tabletIndications: | | | | | | | Other specified | | | | | | | hypothyroidism | | | | | | + [...] | | | | | | [place] [address] | | | | | | [phone] | | | | | | | | +--------+---------+ + + + documented as of this encounter Procedures + +--------+ + + + | Procedure Name | Priori | Date/Time | Associated Diagnosis | Comments | | | ty | | | | + +--------+ + + + | FL FACET INJECTION | Routin | 12/09/2014 | Chronic low back | Results for this | | LUMBAR SACRAL | e | 1:55 PM | pain DDD | procedure are in the | | | | PDT | (degenerative disc | results section. | | | | | disease), lumbar | | | | | | Facet arthritis of | | | | | | lumbar region | | + +--------+ + + + documented in this encounter Results FL Facet Injection Lumbar Sacral (12/09/2014 1:55 PM PDT) + + | Specimen | + + | | + + + + + | Narrative | Performed At | + + + | 12/09/2014 Procedure: Lumbar Medial Branch Block Diagnosis: | [facility] | | Lumbar spondylosis 723.1 Soumya Jackson presents to the | [facility] | | fluoroscopy suite for fluoroscopically guided bilateral L4 medial [facility] | | branch blocks and bilateral L5 dorsal ramus blocks as part of | - IMAGING | | conservative management for chronic pain with lumbar spondylosis. | | | Based on the patient's history, physical examination and review of | | | the available imaging the patient has been diagnosed with pain | | | coming primarily from the lumbar facet joints. The patient's pain | | | has been moderate to severe, rated as a 4-8 usually on a 0-10 scale. | | | The pain is impacting activities of daily living including | | | activities that require prolonged standing, walking, bending, | | | stooping. The patient has been dealing with this pain for years and | | | has failed conservative treatment with NSAIDs, PT and a home | | | exercise program therefore diagnostic medial branch blocks were | | | ordered today by Velvet Slade PA-C targeting the L5-S1 facet | | | joints. After informed consent was obtained, the patient lay in a | | | prone position on the fluoroscopy table. The areas were identified | | | under fluoroscopic guidance. The areas were prepped and [...] + | [address] | [address] | [place] | [phone] | | [facility] | | [address] | | | - IMAGING | | [...] | | | + +--------+ +------+------+------+ | bupivacaine (MARCAINE) 0.5% | Given | 12/10/19 | 1 mL | | | | injection 1 mL 1 mL, Other, | | 15 2:06 | | | | | ONCE, 12/09/14 at 1415, For 1 | | PM PDT | | | | | dose | | | | | | + +--------+ +------+------+------+ +---+---+ | | | +---+---+ + +-------+ +-------+---+---+ | iohexol (OMNIPAQUE 300) 300 | Given | 12/10/19 | 4 mLs | | | | mg/mL injection 4 mL 4 mL, | | 15 2:03 | | | | | INTRATHECAL, ONCE, 12/09/14 at | | PM PDT | | | | | 1415, For 1 dose | | | | | | + +-------+ +-------+---+---+ +---+---+ | | | +---+---+ + +-------+ +------+---+ + | lidocaine 1% injection 1 mL 1 | Given | 12/10/19 | 1 mL | | Other | | mL, Intradermal, ONCE, Fri | | 15 1:59 | | | (Comment | | 12/09/14 at 1415, For 1 dose | | PM PDT | | | ) | + +-------+ +------+---+ + +---+---+ | | | +---+---+ + +-------+ +------+---+---+ | sodium bicarbonate (NEUT) 4% | Given | 12/10/19 | 1 mL | | | | injection 1 mL 1 mL, | | 15 1:59 | | | | | Intravenous, ONCE, 12/09/14 at | | PM PDT | | | | | 1415, For 1 dose, Use for | | | | | | | addition to other parenteral | | | | | | | solutions., | | | | | | + +-------+ +------+---+---+ +---+---+ | | | +---+---+ documented in this encounter"
--- OUTSIDE RECORDS SUMMARY | ~2019-04-12 | XMS | Encounter Summary ---
Demographics + + + | Address | [address] | | | [place] [address] | + + + | Home Phone | | + + + | Preferred Language | Unknown | + + + | Marital Status | | + + + | Lutheran Affiliation | Unknown | + + + | Race | Unknown | + + + | Ethnic Group | Unknown | + + + Author + + + | Author | [facility] | | | and Ohana | + + + | Organization | [facility] | [...] | | | | | [place] [address] | | + + + + + | Hunter Jackson | ECON | [place] | | + + + + + | Wes Jackson | ECON | [place], [place] | | + + + + + | Oziel Jackson | ECON | [place], [place] | | + + + + + Care Team Providers + +------+ + | Care Cell Efficiency Supervisor Name | Role | Phone | [...] | Lumbosacral | Bal, | [address] | | | | | spondylosis | Harsha Moreno MD | [place], | | | | | without | [address] | [place] | | | | | myelopathy | [facility] | [address] | | | | | Procedures | [place] | Phone: | | | | | [place] INJ | [address] | [phone] | | | | | DX/THER AGNT | Phone: | Fax: | | | | | PARAVERT | [phone] | [phone] | | | | | FACET JOINT, | Fax: | | | | | | LUMBAR/SAC, | [phone] | | | | | | 1ST LEVEL | | | | | | | CT INJ | | | | | | [...] + + | 03/06/ | Hospital | [facility] | Harsha Selby | Chronic low back | | 2014 | Encounter | MED CTR XRAY [address] | T, [address] | pain; Facet | | | | [place] | [place] | arthritis of lumbar | | | | [place] [address] | [address] | region; DDD | | | | [phone] | | (degenerative disc | | | | | Technology Project Manager, [place] | disease), lumbar | +--------+ + [...] [place] | | | | | | [address] | | | | | | | | +--------+---------+ + + + | 11/21/ | Office | Cardiology | Yesi, | | | 2019 | Visit | | JOSE ALBERTO Linder [address] | | | | | | [place], | | | | | | [place] [address] | | | | | | [phone] | | | | | | | [...] 723.1 Soumya Jackson presents to the | [facility] | | fluoroscopy suite for fluoroscopically guided bilateral L3 and | [facility] | | bilateral L4 medial [...] + | [facility] | [address] | [place], [place] | [phone] | | [facility] | | [address] | | | - IMAGING | | [...]
--- OUTSIDE RECORDS SUMMARY | ~2019-04-12 | XMS | Encounter Summary ---
Demographics + + + | Address | [address] | | | [place] [address] | + + + | Home Phone | | + + + | Preferred Language | Unknown | + + + | Marital Status | | + + + | Denominational Affiliation | Unknown | + + + | Race | Unknown | + + + | Ethnic Group | Unknown | + + + Author + + + | Author | [facility] | | | and [place] | + + + | Organization | [facility] | | [...] | | | | | [place] [address] | | + + + + + | Hunter Jackson | ECON | [place] | | + + + + + | Wes Jackson | ECON | [place], [place] | | + + + + + | Oziel Jackson | ECON | [place], [place] | | + + + + + Care Team Providers + +------+ + | Care Ropewalk Rope Maker Name | Role | Phone | + +------+ + | Rodolfo Cruz MD | PCP | | + +------+ + Encounter Details +--------+ + + + + | Date | Type | Department | Care Team | Description | +--------+ + + + + | 01/22/ | Abstract | [place] [facility] | [facility] | | | 2011 | | Conversion Location | SR | | | | | [phone] | | | +--------+ + + + [...] + + + | Blood Pressure | 130/74 | 10/30/2011 12:00 AM | | | | | PDT [...] Weight | 94.3 kg (208 lb) | 01/08/2012 12:00 AM | | | | | PDT | | + + + + + | Height | 166.4 cm (5' 5.5") | 03/01/2010 12:00 AM | | | | | PDT | | + + + + + | Body Mass Index | 34.09 | 03/01/2010 12:00 AM | | | | | PDT | | + + + + + documented in this encounter Plan of Treatment [...] | | | | | | [place] [address] | | | | | | [phone] | | | | | | | | +--------+---------+ + + + documented as of this encounter Procedures + +--------+ + + + | Procedure Name | Priori | Date/Time | Associated Diagnosis | Comments | | | ty | | | | + +--------+ + + + | CLIFFORD SCREENING | Routin | 05/18/2009 | | Results for this | | BILATERAL | e | 12:00 AM | | procedure are in the | | | | PST | | results section. | + +--------+ + + + | PAP SMEAR | Routin | 07/19/2008 | | Results for this | | | e | 12:00 AM | | procedure are in the | | | | PDT | | results section. | + +--------+ + + + documented in this encounter Results CLIFFORD Screening Bilateral (05/18/2009 12:00 AM PST) + + | Specimen | + + | | + + + + + | Narrative | Performed At | + + + | | | + + + Pap Smear (07/19/2008 12:00 AM PDT) + + | Specimen | + + | | + + + + + | Narrative | Performed At | + + + | | | + + + documented in this encounter Visit Diagnoses Not on filedocumented in this encounter
--- OUTSIDE RECORDS SUMMARY | ~2019-04-12 | XMS | Encounter Summary ---
Demographics + + + | Address | [address] | | | [place] [address] | + + + | Home Phone [...] | Author | [facility] | | | and [place]ana | + + + | Organization | [facility] [...] | | | | | [place] [address] | | + + + + + | Hunter Jackson | ECON | [place] | | + + + + + | Wes Jackson | ECON | [place], [place] | | + + + + + | Oziel Jackson | ECON | [place], [place] | | + + + + + Care Team Providers + +------+ + | Care Access Coordinator Name | Role | Phone | [...] | 07/25/ | Refill | [facility] | Rodolfo Cruz, | Medication Refill | | 2016 | | MEDICINE [address] | [address] | | | | | [place] | [place] | | | | | [place] [address] | [address] | | | | | [phone] | | | +--------+--------+ + + + [...] | | | | | | [place] [address] | | | | | | [phone] | | | | | | | | +--------+---------+ + + + documented as of this encounter Visit Diagnoses Not on filedocumented in this encounter"
--- OUTSIDE RECORDS SUMMARY | ~2019-04-12 | XMS | Encounter Summary ---
Demographics + + + | Address | [address] | | | [place] [address] | + + + | Home Phone | | + + + | Preferred Language | Unknown | + + + | Marital Status | | + + + | Sabianist Affiliation | Unknown | + + + | Race | Unknown | + + + | Ethnic Group | Unknown | + + + Author + + + | Author | [facility] | | | and [place] | + + + | Organization | [facility] | | | and [place] | + + + | Address | Unknown | + + + | Phone | Unavailable | + + + Support + + + + + | Name | Relationship | Address | Phone | + + + + + | Osmin Jackson | ECON | [address] | | | | | [place] [address] | | + + + + + | Hunter Jackson | ECON | [place] | | + + + + + | Wes Jackson | ECON | [place], [place] | | + + + + + | Oziel Jackson | ECON | [place], [place] | | + + + + + Care Team Providers + +------+ + | Care Latin American Studies Director Name | Role | Phone | [...] | [address] | [place] [address] | [address] Phone: | | | | | Procedures | Phone: | [phone] | | | | | NEW PATIENT | [phone] | Fax: | | | | | | Fax: | [phone] | | | | | | [phone] | | +--------+--------+ + + + + Encounter Details +--------+---------+ + + + | Date | Type | Department | Care Team | Description | +--------+---------+ + + + | 06/13/ | Office | [facility] | Braulio León | Psychophysiologic | | 2018 | Visit | SLEEP DISORDER [address] | MD [address] | insomnia | | | | [address] [place] | [facility] | | | | | [place] [address] | [place] [address] | | | | | [phone] | [phone] | | | | | | | [...] in this encounter Patient Instructions Patient Instructions Brauilo León Jr., MD - 06/13/2017 10:00 AM [...] differen t from the original. Mary [facility] [place] [address] Ref: Kellie Gunderson PA CC: Chief Complaint [...] f peptic ulcer disease. The patient's records ([facility] EMR and Mary Beth Gunderson's note [...] low back pain (08/24/2014); Cl otting disorder ([facility]) (2013); COPD (chronic obstructive pulmonary disease) ([facility]); DDD (degen erative disc disease), cervical (07/25/2016); DDD (degenerative disc disease), lumbar ( 015); DJD (degenerative joint disease) (07/08/2013); Encounter for blood transfusion (November 28); Environmental allergies; Essential hypertension; Facet arthritis of lumbar region ([facility]) (08/24/2014); Foraminal stenosis of cervical region (07/25/2016); Fracture of foot (approx 29 01); GERD (04/17/2010); Heart murmur; Hep B complicating ; Hepatitis A (1967); Herpe s zoster (05/03/2011); High cholesterol; Hyperplastic colon polyp (03/28/10); Hypertension; Hypothyroidism; Lactose intolerance; Miscarriage; Mononucleosis; Osteoporosis; PUD (peptic u lcer disease) (11/08/2013); Pulmonary nodules (12/08/2013); Spondylosis, cervical (08/30/2010); Stenosis of cervical spine (07/25/2016); Stroke ([facility]) (Apr 2010); TIA (05/08/2010); Tinea co rporis (01/31/2015); UGIB (upper gastrointestinal bleed) (11/14/2013); Valvular heart disease ( 05/23/2010); and Vertigo (09/03/2012). has a past surgical history that includes Colonoscopy (05/2002; 03/28/10); Removal lower l eft nodules (2004); Foot fracture surgery (Left, 2004); Tonsillectomy and adenoidectomy (195 6); Upper gastrointestinal endoscopy (11/15/2013); Upper gastrointestinal endoscopy (11/04/2013 ); Hemorrhoid surgery (8928-8407); Thyroidectomy; Cardiac catheterization (N/A, 10/16/2016); a nd [...] CV LHC; Surgeon: Irina Simms MD; Location: [facility] CV LAB COLONOSCOPY 05/2002; 03/28/10 next due 03/2020 CORONARY ARTERY BYPASS GRAFT N/A 11/01/2016 Procedure: CABG X 4-5, EVH, AHMET; Surgeon: Christina Loo MD; Location: [facility] MAIN OR FOOT FRACTURE SURGERY Left 2005 HEMORRHOID SURGERY [phone] Removal lower left nodules 2004 THYROIDECTOMY TONSILLECTOMY AND ADENOIDECTOMY 1955 UPPER GASTROINTESTINAL ENDOSCOPY 11/15/2013 EGD * IP RM: 428 * ; Laterality: N/A; Surgeon: Lauri Garrison MD; Location: [facility] MEDICAL PROCEDURE UNIT UPPER GASTROINTESTINAL ENDOSCOPY 11/04/2013 EGD IP 449; Laterality: N/A; Surgeon: Samm Pandya MD; Location: [facility] MEDICAL P ROCEDURE UNIT Family Medical [...] during the day Living situation:Alone Born in [facility] since 1965 Marital status: Children: 6, 5 living, 10 grandchildren 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 imon, Braulio Daniel Jr., MD - 06/13/2017 10:00 AM PSTFormatting of this note might be different from the origin al. 06/13/17 0900 Bruno Depression Inventory-II Depression Score 5 - Minimal depression Insomnia Severity Index Insomnia Severity Index 22 D Hanis Sleepiness Scale Sitting and reading 0 Watching [...] | | | | | | [place] [address] | | | | | | [phone] | | | | | | | | +--------+---------+ + + + documented as of this encounter Visit Diagnoses + + | Diagnosis | + + | Psychophysiologic insomnia Persistent disorder of initiating or maintaining sleep | + + documented in this encounter
--- OUTSIDE RECORDS SUMMARY | ~2019-04-12 | XMS | Encounter Summary ---
Demographics + + + | Address | [address] | | | [place] [address] | + + + | Home Phone [...] + | Author | [facility] | | | and [place] | + + + | Organization | [facility] | | | and [place] | + + + | Address | Unknown | + + + | Phone | Unavailable | + + + Support + + + + + | Name | Relationship | Address | Phone | + + + + + | Osmin Jackson | ECON | [address] | | | | | [place] [address] | | + + + + + | Hunter Jackson | ECON | [place] | | + + + + + | Wes Jackson | ECON | [place], [place] | | + + + + + | Oziel Jackson | ECON | [place], [place] | | + + + + + Care Team Providers + +------+ + | Care Floatman Name | Role | Phone | + +------+ + | Rodolfo Cruz MD | PCP | | + +------+ + Encounter Details +--------+ + + + + | Date | Type | Department | Care Team | Description | +--------+ + + + + | 05/08/ | Hospital | [facility] | Beatriz Faust | | | 2010 | Encounter | MED CTR XRAY [address] | DO Danny Padron | | | | | [place] | [place], [place] | | | | | [place] [address] | [address] | | | | | [phone] | | | +--------+ + + + [...] mg by mouth | | 0 | 01/24/20 | | | (BENADRYL) 25 MG | [...] | | succinate (TOPROL | Daily. Taking 05/13 | | | 11 | 3 | [...] | | | | | | [place] [address] | | | | | | [phone] | | | | | | | | +--------+---------+ + + + documented as of this encounter Procedures + +--------+ + + + | Procedure Name | Priori | Date/Time | Associated Diagnosis | Comments | | | ty | | | | + +--------+ + + + | US ABDOMEN LIMITED | | 05/08/2011 | | Results for this | | | | 10:37 AM | | procedure are in the | | | | PST | | results section. | + +--------+ + + + documented in this encounter Results US Abdomen Limited (05/08/2011 10:37 AM PST) + + | Specimen | + + | | + + + + + | Narrative | Performed At | + + + | [facility] Diagnostic Imaging Department | [facility] | | [address] [facility] | [facility] | | GALLBLADDER ULTRASOUND 05/08/2011 | DIAG IMG | | CLINICAL HISTORY: RIGHT UPPER QUADRANT ABDOMINAL PAIN. | | | FINDINGS: The gallbladder is sonographically normal with no finding | | | of gallbladder wall thickening, stone or pericholecystic fluid. | | | The visualized intra- and extra-hepatic bile ducts are unremarkable. | | | The visualized hepatic parenchyma is unremarkable. Selected | | | images through the liver, head of panc reas and upper pole of the | | | right kidney are unremarkable. IMPRESSION: 1. NEGATIVE STUDY. | | | Dictated Date/Time: 05/08/2011 13:46 Transcribed Date/Time: | | | 05/08/2011 15:21 Rpg Developer: <Electronically Signed | | | by Peng Acosta MD> 05/08/11 1607 | | + + + + + | Procedure Note | + + | Zoltan Macedo Conversion - 06/18/2013 4:28 PM [facility] | | Diagnostic Imaging Department [address] [facility] | | GALLBLADDER ULTRASOUND 05/08/2011 CLINICAL HISTORY: | | RIGHT UPPER QUADRANT ABDOMINAL PAIN. FINDINGS: The gallbladder is sonographically | | normal with no finding of gallbladder wall thickening, stone or pericholecystic fluid. | | The visualized intra- and extra-hepatic bile ducts are unremarkable. The visualized | | hepatic parenchyma is unremarkable. Selected images through the liver, head of pancreas | | and upper pole of the right kidney are unremarkable. IMPRESSION:1. NEGATIVE STUDY. | | Dictated Date/Time: 05/08/2011 13:46Transcribed Date/Time: 05/08/2011 | | 15:21Transcriptionist: <Electronically Signed by Peng Acosta MD> 05/08/11 | | 1607 | |stone or pericholecystic fluid. The visualized intra- and extra-hepatic bile ducts are unr emarkable. | | The visualized hepatic parenchyma is unremarkable. Selected images through the liver, he ad of panc | |reas and upper pole of the right kidney are unremarkable. | | | |IMPRESSION: | |1. NEGATIVE STUDY. | | | |Dictated Date/Time: 05/08/2011 13:46 | |Transcribed Date/Time: 05/08/2011 15:21 | |Rpg Developer: | |<Electronically Signed by Peng Acosta MD> 05/08/11 1607 | + + + +---------+ + + | Performing | Address | City/State/Zipcode | Phone Number | | Organization | | | | + +---------+ + + | [place] | | | | | [facility] | | | | + +---------+ + + documented in this encounter Visit Diagnoses Not on filedocumented in this encounter"
--- OUTSIDE RECORDS SUMMARY | ~2019-04-12 | XMS | Encounter Summary ---
Demographics + + + | Address | [address] | | | [place] [address] | + + + | Home Phone | | + + + | Preferred Language | Unknown | + + + | Marital Status | | + + + | Caodaism Affiliation | Unknown | + + + | Race | Unknown | + + + | Ethnic Group | Unknown | + + + Author + + + | Author | [facility] | | | and [place] | + + + | Organization | [facility] | | [...] | | | | | [place] [address] | | + + + + + | Hunter Jackson | ECON | [place] | | + + + + + | Wes Jackson | ECON | [place], [place] | | + + + + + | Oziel Jackson | ECON | [place], [place] | | + + + + + Care Team Providers + +------+ + | Care Bead Filler Name | Role | Phone | + +------+ + PCP | Unavailable | + +------+ + Encounter Details +--------+ + + + + | Date | Type | Department | Care Team | Description | +--------+ + + + + | 05/14/ | [facility] | [facility] | Rodolfo Cruz, | | | 2010 | Encounter | MED CTR XRAY [address] | [address] | | | | | [place] | [place], [place] | | | | | [place] [address] | [address] | | | | | [phone] | | | +--------+ + + + [...] | | | | | | [place] [address] | | | | | | [phone] | | | | | | | | +--------+---------+ + + + documented as of this encounter Visit Diagnoses Not on filedocumented in this encounter"
--- OUTSIDE RECORDS SUMMARY | ~2019-04-12 | XMS | Encounter Summary ---
Demographics + + + | Address | [address] | | | [place] [address] | + + + | Home Phone [...] [facility] | | | and [place] | + + + | Organization | [facility] | | | and [place] | + + + | Address | Unknown | + + + | Phone | Unavailable | + + + Support + + + + + | Name | Relationship | Address | Phone | + + + + + | Osmin Jackson | ECON | [address] | | | | | [place] [address] | | + + + + + | Hunter Jackson | ECON | [place] | | + + + + + | Wes Jackson | ECON | [place], [place] | | + + + + + | Ozile Jackson | ECON | [place], [place] | | + + + + + Care Team Providers + +------+ + | Care Bar Host Name | Role | Phone | + [...] | | | Services | y | Epistaxis | Rodolfo Reilly MD | EMD [address] | | | Required | | | [address] | | | | | | [address] [place] | [address] | | | | | | [place], [place] | [place], | | | | | | [address] | [place] [address] | | | | | | Phone: | Phone: | | | | | | [phone] | [phone] | | | | | | Fax: | Fax: | | | | | | [phone] | [phone] | +--------+ + + + + + Reason for Visit + + + | Reason | Comments | + + + | Epistaxis | Happened yesterday, stopped within 30 minutes. May need referral | | | to ENT | + + + | Heart Problem | Feels a flutter intermittently, possible anxiety, no chest pain | + + + | Vaginitis | Vaginal itching, denies discharge. x few weeks | + + + | Fatigue | Would like TSH drawn | + + + Encounter Details +--------+---------+ + + + | Date | Type | Department | Care Team | Description | +--------+---------+ + + + | 06/16/ | Office | [facility] | Rodolfo Cruz, | Essential | | 2015 | Visit | MEDICINE [facility] | [address] | hypertension | | | | Street [facility] | [place] | (Primary Dx); | | | | [place] [address] | [address] | Anemia; Depression | | | | [phone] | | with anxiety; | | | | | | Epistaxis; Pulmonary | | | | | | nodule, right; | | | | | | Fatigue | +--------+---------+ + + + Social History [...] + + + | Blood Pressure | 160/84 | 06/16/2014 9:40 AM | | | | | PST | | + + + + + | Pulse | 48 | 06/16/2014 9:40 AM | | | | | PST | | + + + + + | Temperature | 37.1 C (98.7 F) | 06/16/2014 9:40 AM | | | | | PST | | + + + + + | Respiratory Rate | 14 | 06/16/2014 9:40 AM | | | | | PST | | + + + + + | Oxygen Saturation | 98% | 06/16/2014 9:40 AM | | | | | PST | | + + + + + | Inhaled Oxygen | - | - | | | Concentration | | | | + + + + + | Weight | 85 kg (187 lb 8 oz) | 06/16/2014 9:40 AM | | | | | PST | | + + + + + | Height | 167.6 cm (5' 6") | 06/16/2014 9:40 AM | | | | | PST | | + + + + + | Body Mass Index | 30.26 | 06/16/2014 9:40 AM | | | | | PST | | + + + + + documented in this encounter Progress Notes Rodolfo Cruz MD - 06/16/2014 10:02 AM PSTFormatting of this note might be different f rom the original. Subjective: Patient ID: Soumya Jackson is a 78 y.o. female. HPI Epistaxis, none since our last visit, seen at ER in [place]. No recurrence using an oint ment and decongestant. Anxiety, "I'm feeling jittery", flat affect. Lack of interest in usual activities. She gutierrez s felt like her heart has been up in her chest. She is sleeping poorly and is taking lunest a for her Insomnia, improved with 2mg lunesta. There is some fatigue with this. She takes a nap once daily. She feels depressed. Crying spells come on easy. Yeast Vaginitis, itchy for the last two weeks, tried a vinegar douche that did not help. Pulmonary Nodules, Followed by CT, There is no Chronic cough, Mild SOB with run on sente nces. This is unchanged Next CT is due 08/24 Hx GI bleed. Some weakness, No recent bloody or black stools. She is now on iron. She was subsequently hosp and transfused. She is no longer having any bloody or black stools. She is not longer taking her voltaren. Anemia, Recent CBC interpath 02/22, She is on iron. There is no gross blood in the stool or urine. Numbness in the left hand since mini stroke 2009, This is unchanged. She declines EMG at this point. 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 HEENT: Neg ear pain, pos nosebleeds,no rhinorrhea,no trouble swallowing and no sinus [...] ideas,no confusion and no agitation. some Depression, some anxiety,some sleep problems Objective: Physical Exam Heent, WNL, No carotid bruit Chest CTAB Heart RR&R /s M Abd S,NT,ND,BS+ Ext, no CCor E Neuro Non-focal Lymph, no cervical, axillary, inguinal adenopathy Musculoskeletal, no gross deformity or loss or range of motion Skin, no gross lesions Assessment: 1. Essential hypertension 2. Anemia 3. Depression with anxiety 4. Epistaxis 5. Pulmonary nodule, right Plan: Refer to Dr Davis. CT chest repeat in August for pulm nodule follow up. Labs. She will co vazquez PT with Josi at the [facility] in [place]. RTC 3 weeks. lexapro trial. documented in this encounter Plan of Treatment +--------+---------+ + + + | Date | Type | Specialty | Care Team | Description | +--------+---------+ + + + | 06/02/ | Office | Orthopedic Surgery | Ulysses Jensen, | | | 2019 | Visit | | [address] | | | | | | [place] | | | | | | [address] | | | | | | | | +--------+---------+ + + + | 11/21/ | Office | Cardiology | Yesi, | | | 2019 | Visit | | JOSE ALBERTO Linder [address] | | | | | | [place], | | | | | | [place] [address] | | | | | | [phone] | | | | | | | | +--------+---------+ + + + + + +--------+ + + | Name | Type | Priori | Associated Diagnoses | Order Schedule | | | | ty | | | + + +--------+ + + | Ambulatory referral | Outpatient | Routin | Epistaxis | Ordered: 06/16/2014 | | to ENT | Referral | e | | | + + +--------+ + + documented as of this encounter Results Protein Electrophoresis, Serum (06/16/2014 11:35 AM PST) + + + + + + | Component | Value | Ref Range | Performed | Pathologist | | | | | At | Signature | + + + + + + | Total | 8.3 (H) | 6.0 - 7.8 g/dL | [facility] | | | Protein | | | [facility] | | | | | | MEDICAL | | | | | | CENTER - | | | | | | LABORATORY | | + + + + + + | ELP Albumin | 4.8 | 3.6 - 5.7 g/dL | [facility] [...] + + | ELP Alpha 2 | 1.0 (H) | 0.4 - 0.9 g/dL | [facility] | | | Globulin | | | [facility] | | | | | | MEDICAL | | | | | | CENTER - | | | | | | LABORATORY | | + + + + + + | ELP Beta 1 | 0.5 | 0.3 - 0.7 g/dL | [facility] | | | Globulin | | | [facility] | | | | | | MEDICAL | | | | | | CENTER - | | | | | | LABORATORY | | + + + + + + | ELP Beta 2 | 0.5 (H) | 0.1 - 0.4 g/dL | [facility] | | | Globulin | | | [facility] | | | | | | MEDICAL | | | | | | CENTER - | | | | | | LABORATORY | | + + + + + + | ELP Gamma | 1.2 | 0.4 - 1.2 g/dL | [facility] | | | Globulin | | | [facility] | | | | | | MEDICAL | | | | | | CENTER - | | | | | | LABORATORY | | + + + + + + | ELP Albumin | 58.1 | % | [facility] | | | [...] + + | ELP Alpha 1 | 2.8 | % | [facility] | | | Globulin % | | | [facility] | | | | | | MEDICAL | | | | | | CENTER - | | | | | | LABORATORY | | + + + + + + | ELP Alpha 2 | 11.7 | % | [facility] | | | Globulin % | | | [facility] | | | | | | MEDICAL | | | | | | CENTER - | | | | | | LABORATORY | | + + + + + + | ELP Beta 1 | 6.2 | % | [facility] | | | Globulin % | | | [facility] | | | | | | MEDICAL | | | | | | CENTER - | | | | | | LABORATORY | | + + + + + + | ELP Beta 2 | 6.6 | % | [facility] | | | Globulin % | | | [facility] | | | | | | MEDICAL | | | | | | CENTER - | | | | | | LABORATORY | | + + + + + + | ELP Gamma | 14.6 | % | [facility] | | | Globulin % | | | [facility] | | | | | | MEDICAL | | | | | | CENTER - | | | | | | LABORATORY | | + + + + + + | Interpretat | See scanned report. | | [facility] | | | ion | Pathologist | | [facility] | | | | comment:Negative for a | | MEDICAL | | | | monoclonal protein.J. | | CENTER - | | | | MD Radha2 | | LABORATORY | | | |215 | | | | + + + [...] + | [facility] | [address] | [place] | [phone] | | [facility] | | [address] | | | - LABORATORY | | | | + + + + + | [facility] | [address] | [place], [place] | | | [facility] | | [address] | | | - LABORATORY | | | | + + + + + TSH (06/16/2014 11:35 AM PST) + + + + + + | Component | Value | Ref Range | Performed | Pathologist | | | | | At | Signature | + + + + + + | TSH | 0.26 (L)Comment: All TSH | 0.34 - 5.60 | [facility] | | | | samples are screened | uIU/mL | [facility] | | | | using [...] [address] | [place] | [phone] | | [facility] | | [address] | | | - LABORATORY | | | | + + + + + | [facility] | [address] | [place] | | | [facility] | | [address] | | | - LABORATORY | | | | + + + + + Comprehensive Metabolic Panel (06/16/2014 11:35 AM PST) + + + + + + | Component | Value | Ref Range | Performed | Pathologist | | | | | At | Signature | + + + + + + | Na | 135 (L) | 136 - 149 | [facility] [...] + + + + | Glucose | 102 | 70 - 109 mg/dL | [facility] [...] + + + + | Creatinine | 0.65 | 0.60 - 1.30 | [facility] | [...] | | FILTRATION | mL/min/1.73m2 | [facility] | | | FIJIAN | RATE,ESTIMATED | | MEDICAL | | | | mL/min/1.35k1Enrz than | | CENTER - | | [...] + + + + | Calcium | 9.8 | 8.3 - 10.5 | [place] | | | | | mg/dL | [facility] | | | | | | MEDICAL | | | | | | CENTER - | | | | | | LABORATORY | | + + + + + + | Albumin | 4.0 | 3.2 - 5.0 g/dL | [facility] | | | | | | [facility] | | | | | | [...] | 8.4 (H) | 6.0 - 7.8 g/dL | [facility] [...] + + + + | ALT | 14 | 6 - 45 U/L | [facility] | | | | | | [facility] | | | | | | MEDICAL | | | | | | CENTER - | | | | | | LABORATORY | | + + + + + + | Alkaline | 75 | 40 - 110 U/L | [facility] | | | Phosphatase | | | [facility] | | | | | | MEDICAL | | | | | | CENTER - | | | | | | LABORATORY | | + + + + + + | Globulin | 4.4 | g/dL | [facility] | | | | | | [facility] | | | | | | MEDICAL | | | | | | CENTER - | | | | | | LABORATORY | | + + + + + + | Albumin/Sarah | 0.9 | | [facility] | | | bulin Ratio | | | [facility] | | | | | | MEDICAL | | | | | | CENTER - | | | | | | LABORATORY | | + + + + + + | BUN/Creatin | 16.9 | | [facility] | | | ine [...] + | [facility] | [address] | [place] | [phone] | | [facility] | | [address] | | | - LABORATORY | | | | + + + + + | [facility] | [address] | [place] | | | [facility] | | [address] | | | - LABORATORY | | | | + + + + + Urinalysis with Microscopic if Indicated (06/16/2014 10:58 AM PST) + + + + + [...] | Urobilinoge | 0.2 E.U./dL | 0.2 E.U./dL, | [facility] | | | n, Urine | | 1.0 E.U./dL | [facility] | | | | [...] + + | SQUAMOUS | 0-2 | 0-2, 2-5, 5-10 | [facility] | | | EPITHELIAL | | /LPF | [facility] | | | UA | | | MEDICAL | | | | | | CENTER - | | | | | | LABORATORY | | + + + + + + | TRANSITIONA | 2-5 (A) | 0 - 2 /HPF | [facility] | | | L | | | [facility] | | | EPITHELIAL | | | MEDICAL | | | UA | | | CENTER - | | [...] + | [facility] | [address] | [place], [place] | [phone] | | [facility] | | [address] | | | - LABORATORY | | | | + + + + + | [facility] | [address] | [place], [place] | | | [facility] | | [address] | | | - LABORATORY | | | | + + + + + Sedimentation Rate (06/16/2014 10:51 AM PST) + +-------+ + + + [...] [address] | [place] | [phone] | | [facility] | | [address] | | | - LABORATORY | | | | + + + + + | [facility] | [address] | [place] | | | [facility] | | [address] | | | - LABORATORY | | | | + + + + + CBC with Differential (06/16/2014 10:51 AM PST) + + + + + + | Component | Value | Ref Range | Performed | Pathologist | | | | | At | Signature | + + + + + + | WBC | 10.7 | 4.0 - 11.0 K/uL | [facility] | | | | | | [facility] | | | | | | MEDICAL | | | | | | CENTER - | | | | | | LABORATORY | | + + + + + + | RBC | 4.45 | 3.70 - 5.20 | [facility] | | | | | M/uL | [facility] | | | | | | MEDICAL | | | | | | CENTER - | | | | | | LABORATORY | | + + + + + + | Hemoglobin | 14.9 | 11.5 - 16.0 | [facility] | | | | | g/dL | [facility] | | | | | | MEDICAL | | | | | | CENTER - | | | | | | LABORATORY | | + + + + + + | Hematocrit | 44.5 | 34.0 - 47.0 % | [facility] | | | | | | [facility] | | | | | | MEDICAL | | | | | | CENTER - | | | | | | LABORATORY | | + + + + + + | MCV | 99.9 | 83.0 - 101.0 fL | [facility] | | | | | | [facility] | | | | | | MEDICAL | | | | | | CENTER - | | | | | | LABORATORY | | + + + + + + | MCH | 33.6 | 28.0 - 35.0 pg | [facility] [...] + + + + | Platelet | 396 | 140 - 440 K/uL | [facility] [...] + + + + | % | 75.3 | 45.0 - 82.0 % | [facility] | | | Neutrophils | | | [facility] | | | | | | MEDICAL | | | | | | CENTER - | | | | | | LABORATORY | | + + + + + + | % | 16.1 (L) | 20.0 - 45.0 % | [facility] | | | Lymphocytes | | | [facility] | | | | | | MEDICAL | | | | | | CENTER - | | | | | | LABORATORY | | + + + + + + | % Monocytes | 6.0 | 4.0 - 12.0 % | [facility] | | | | | | [facility] | | | | | | MEDICAL | | | | | | CENTER - | | | | | | LABORATORY | | + + + + + + | % | 1.7 | 0.0 - 5.0 % | [facility] [...] + + + + | Absolute | 8.00 | 1.80 - 8.50 | [facility] | [...] | Eosinophils | | K/uL | [facility] | | | | | | MEDICAL [...] ST. | [address] | [place], [place] | [phone] | | [facility] | | [address] | | | - LABORATORY | | | | + + + + + | [facility] | [address] | [place], [place] | | | [facility] | | [address] | | | - LABORATORY | | | | + + + + + Hemoglobin A1C (06/16/2014 8:50 AM PST) + +-------+ + + + | Component | Value | Ref Range | Performed | Pathologist | | | | | At | Signature | + +-------+ + + + | Hemoglobin | 5.7 | 4.3 - 6.0 % | [facility] | | | A1c | | | [facility] | | | | | | MEDICAL | | | | | | CENTER - | | | | | | LABORATORY | | + +-------+ + + + | Estimated | 117 | mg/dL | [facility] | | | Average | | | [facility] | | | Glucose | | | MEDICAL | | | [...] [address] | [place] | [phone] | | [facility] | | [address] | | | - LABORATORY | | | | + + + + + | [facility] | [address] | [place] | | | [facility] | | [address] | | | - LABORATORY | | | | + + + + + documented in this encounter Visit Diagnoses + + | Diagnosis | + + | Essential hypertension - Primary Unspecified essential hypertension | + + | Anemia Anemia, unspecified | + + | Depression with anxiety Dysthymic disorder | + + | Epistaxis | + + | Pulmonary nodule, right Solitary pulmonary nodule | + + | Fatigue Other malaise and fatigue | + + documented in this encounter
--- OUTSIDE RECORDS SUMMARY | ~2019-04-12 | XMS | Encounter Summary ---
Demographics + + + | Address | [address] | | | [place] [address] | + + + | Home Phone [...] Author | [facility] | | | and [place] | + + + | Organization | [facility] | | | and [place] | + + + | Address | Unknown | + + + | Phone | Unavailable | + + + Support + + + + + | Name | Relationship | Address | Phone | + + + + + | Osmin Jackson | ECON | [address] | | | | | [place] [address] | | + + + + + | Hunter Jackson | ECON | [place] | | + + + + + | Wes Jackson | ECON | [place], [place] | | + + + + + | Oziel Jackson | ECON | [place], [place] | | + + + + + Care Team Providers + +------+ + | Care Digital Developer Name | Role | Phone | + [...] + | 08/06/ | Telephone | [facility] | Yesi, | Blood Pressure Check | | 2015 | | CARDIOLOGY [address] | JOSE ALBERTO Linder [address] | (Screening) | | | | [place], | [place], | | | | | [place] [address] | [place] [address] | | | | | [phone] | [phone] | | | | | | | [...] [address] | | | | | | [address] | | | | | | | | +--------+---------+ + + + | 11/21/ | Office | Cardiology | Yesi, | | | 2019 | Visit | | JOSE ALBERTO [address] | | | | | | [place] | | | | | | [place] [address] | | | | | | [phone] | | | | | | | | +--------+---------+ + + + documented as of this encounter Visit Diagnoses Not on filedocumented in this encounter"
--- OUTSIDE RECORDS SUMMARY | ~2019-04-12 | XMS | Encounter Summary ---
Demographics + + + | Address | [address] | | | [place] [address] | + + + | Home Phone | | + + + | Preferred Language | Unknown | + + + | Marital Status | | + + + | Church Affiliation | Unknown | + + + | Race | Unknown | + + + | Ethnic Group | Unknown | + + + Author + + + | Author | [facility] | | | and [place] | + + + | Organization | [facility] | [...] [place] | | | | | [place] [address] | | + + + + + | Hunter Jackson | ECON | [place] | | + + + + + | Wes Jackson | ECON | [place], [place] | | + + + + + | Oziel Jackson | ECON | [place], [place] | | + + + + + Care Team Providers + +------+ + | Care Spiral Machine Operator Name | Role | Phone | + +------+ + | Gunderson, Kellie PA | PCP | | + +------+ + Reason for Visit + + + | Reason | Comments | + + + | Follow-up | right shoulder and righ cmc injection | + + + Encounter Details +--------+---------+ + + + | Date | Type | Department | Care Team | Description | +--------+---------+ + + + | 04/28/ | Office | [facility] [place] | Ulysses Jensen, | Arthritis of | | 2017 | Visit | ORTHOPEDIC SURGERY | MD Danny FLANNERY | carpometacarpal | | | | [address] | [place] | (CMC) joint of right | | | | [place] | [address] | thumb (Primary Dx); | | | | [address] | | Rotator cuff tear | | | | [phone] | | arthropathy of right | | [...] + + + + | Weight | 78.9 kg (174 lb) | 04/28/2017 1:18 PM | | | | | PST | | + + + + + | Height | 162.6 cm (5' 4") | 04/28/2017 1:18 PM | | | | | PST | | + + + + + | Body Mass Index | 29.87 | 04/28/2017 1:18 PM | | | | | PST | | + + + + + documented in this encounter Progress Notes Ulysses Jensen MD - 04/28/2017 1:45 PM PSTPatient returns follow up right shoulder pain from 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
--- OUTSIDE RECORDS SUMMARY | ~2019-04-12 | XMS | Encounter Summary ---
Demographics + + + | Address | [address] | | | [place] [address] | + + + | Home Phone [...] Author | [facility] | | | and [place] | + + + | Organization | [facility] | [...] [place] | | | | | [place] [address] | | + + + + + | Hunter Jackson | ECON | [place] | | + + + + + | Wes Jackson | ECON | [place], [place] | | + + + + + | Oziel Jackson | ECON | [place], [place] | | + + + + + Care Team Providers + +------+ + | Care Tv Host Name | Role | Phone | [...] | Cervical | [place], | [address] | | | | | radiculopath | Harsha Moreno MD | [place], | | | | | y | [address] | [place] | | | | | Procedures | [address] [place] | [address] | | | | | [place] | [place] | Phone: | | | | | DX/THER SBST | [address] | [phone] | | | | | INTRLMNR | Phone: | Fax: | | | | | CRV/THRC | [phone] | [phone] | | | | | W/IMG GDN | Fax: | | | | | | [place] | [phone] | | | | | | TRIAMCINOLON [...] + + | 04/28/ | Hospital | [facility] | Harsha Selby | Cervical | | 2017 | Encounter | MED CTR XRAY [address] | T, [address] | radiculopathy; DDD | | | | [place] | [place], [place] | (degenerative disc | | | | [place] [address] | [id number] | disease), cervical | | | | [phone] | | | | | | | Diesel Maintenance TechnicianRenetta | | +--------+ + + + + [...] | | | | | | [place] [address] | | | | | | [phone] | | | | | | | [...]
--- OUTSIDE RECORDS SUMMARY | ~2019-04-12 | XMS | Encounter Summary ---
Demographics + + + | Address | [address] | | | [place] [address] | + + + | Home Phone | | + + + | Preferred Language | Unknown | + + + | Marital Status | | + + + | Mandaeism Affiliation | Unknown | + + + | Race | Unknown | + + + | Ethnic Group | Unknown | + + + Author + + + | Author | [facility] | | | and [place] | + + + | Organization | [facility] | [...] | | | | | [place] [address] | | + + + + + | Hunter Jackson | ECON | [place] | | + + + + + | Wes Jackson | ECON | [place], [place] | | + + + + + | Oziel Jackson | ECON | [place], [place] | | + + + + + Care Team Providers + +------+ + | Care Industrial Furnace Fabricator Name | Role | Phone | + [...] Description | +--------+--------+ + + + | 02/11/ | Refill | [facility] | Rodolfo Cruz, | Medication Refill | | 2016 | | MEDICINE [address] | [address] | | | | | [place] | [place] | | | | | [place] [address] | [address] | | | | | [phone] | | | +--------+--------+ + + + [...] | | | | | | [place] [address] | | | | | | [phone] | | | | | | | | +--------+---------+ + + + documented as of this encounter Visit Diagnoses Not on filedocumented in this encounter"
--- OUTSIDE RECORDS SUMMARY | ~2019-04-12 | XMS | Encounter Summary ---
Demographics + + + | Address | [address] | | | [place] [address] | + + + | Home Phone [...] Author | [facility] | | | and [place] | + + + | Organization | [facility] | | [...] [place] | | | | | [place] [address] | | + + + + + | Hunter Jackson | ECON | [place] | | + + + + + | Wes Jackson | ECON | [place], [place] | | + + + + + | Oziel Jackson | ECON | [place], [place] | | + + + + + Care Team Providers + +------+ + | Care Computer Forensic Examiner Name | Role | Phone | + +------+ + | Kellie Gunderson | PCP | | + +------+ + Encounter Details +--------+ + + + + | Date | Type | Department | Care Team | Description | +--------+ + + + + | 09/11/ | Abstract | [facility] | Yesi, | | | 2017 | | CARDIOLOGY [address] | JOSE ALBERTO Linder [address] | | | | | [place], | [place], | | | | | [place] [address] | [place] [address] | | | | | [phone] | [phone] | | | | | | | [...] W | | | | | | [place] | | | | | | [place] [address] | | | | | | [phone] | | | | | | | [...]
--- OUTSIDE RECORDS SUMMARY | ~2019-04-12 | XMS | Encounter Summary ---
Demographics + + + | Address | [address] | | | [place] [address] | + + + | Home Phone [...] | [facility] | | | and [place] | + + + | Organization | [facility] | [...] | | | | | [place] [address] | | + + + + + | Hunter Jackson | ECON | [place] | | + + + + + | Wes Jackson | ECON | [place], [place] | | + + + + + | Oziel Jackson | ECON | [place], [place] | | + + + + + Care Team Providers + +------+ + | Care Weight Control Engineer Name | Role | Phone | [...] | [address] | [place] | Dx); [facility] | | | | [place] | [address] | | | | | [address] | | | | | | [phone] | | | +--------+---------+ + + + [...] | | | | | | [place] [address] | | | | | | [phone] | | | | | | | [...]
--- OUTSIDE RECORDS SUMMARY | ~2019-04-12 | XMS | Encounter Summary ---
Demographics + + + | Address | [address] | | | [place] [address] | + + + | Home Phone [...] + + | Author | [facility] | | | and [place] | + + + | Organization | [facility] | | | and [place] | + + + | Address | Unknown | + + + | Phone | Unavailable | + + + Support + + + + + | Name | Relationship | Address | Phone | + + + + + | Osmin Jackson | ECON | [address] | | | | | [place] [address] | | + + + + + | Hunter Jackson | ECON | [place] | | + + + + + | Wes Jackson | ECON | [place], [place] | | + + + + + | Oziel Jackson | ECON | [place], [place] | | + + + + + Care Team Providers + +------+ + | Care Coping Machine Assembler Name | Role | Phone | [...] | | | disease | [address] | | | | | | involving | [place] | | | | | | [place] | [address] | | | | | | coronary | Phone: | | | | | | artery of | [phone] | | | | | | [place] heart | Fax: | | | | | | with | [phone] | | | | | | unstable | | | | | | | angina | | | | | | | pectoris | | | | | | | ([facility]) | | | +--------+ + + [...] | | | atherosclero | | [address] | | | | | sis of | | AVE [place], | | | | | unspecified | | [place] [address] | | | | | type of | | Phone: | | | | | vessel, | | [phone] | | | | | [place] or | | Fax: | | | | | graft | | [phone] | | | | | Coronary | | | | | | | atherosclero | | | | | | | sis of | | | | | | | unspecified | | | | | | | type of | | | | | | | vessel, | | | | | | | [place] or | | | | | | [...] + + | 11/01/ | Hospital | [facility] | Eze, | Coronary artery | | 2017 - | Encounter | [facility] | MD Christina [address] [place] [address] | disease, angina | | | | CARDIAC TELEMETRY | [address] [place] | presence | | 11/06/ | | [address] | [address] | unspecified, | | 2017 | | [place] | | unspecified vessel | | | | [address] | | or lesion type, | | | | [phone] | | unspecified whether | | | | | | [place] or | | | | | | transplanted heart | | | | | | (Primary Dx); | | | | | | Valvular heart | | | | | | disease; Anemia, | | | | | | unspecified type; | | | | | | Coronary artery | | | | | | disease involving | | | | | | [place] coronary | | | | | | artery of [place] | | | | | | heart with unstable | | | | | | angina pectoris | | | | | | ([facility]); Stress | | | | | [...] might be different f rom the original. [facility] DISCHARGE SUMMARY PATIENT NAME: Jaclyn Jackson : 1935: AGE: 81 y.o. ADMISSION DATE: 11/01/2016 DISCHARGE DATE: 11/06/2016 PRIMARY CARE: FLORA Morgan Patient ID: Jaclyn Jackson [id number] 81 y.o. 1935 5 days Admitting Physician: Christina Loo MD Discharge Diagnoses: Active Hospital Problems Diagnosis Date Noted Anemia 11/24/2013 Priority: High Hyperlipidemia, mixed Priority: High Coronary artery disease involving [place] coronary artery of [place] heart with unstable angina pectoris 11/02/2016 Stress [...] Dr. Suhail Torres Endocrinology: Flor Lynch [facility] Course: The patient proceeded to OR [...] Why: at 11:00 am Contact information: [address] [facility] [place] [address] Call Christina Loo MD. Specialty: Cardiothoracic Surgery Why: As needed, If symptoms worsen. Otherwise okay to follow up postop with Dr. Cevallos Contact information: [address] [facility] [place] [facility] [place] [id number] FLORA Morgan. Schedule an appointment as soon as possible for a visit in 2 weeks. Specialty: Physician Quality Review Trainer Why: Primary care follow up after cardiac surgery Contact information: [address], [address] [place] [address] If patient has any further questions or concerns prior to above, instructed to call our off ice. [phone]. Time spent on discharge planning: less than [...] Mario London PA-C 11/06/2016 13:12 Cardiothoracic Surgery [facility] [address], [address] [place], [place] [address] Portions of this chart may have been created with [employer] voice recognition software. Occasi onal wrong-word or sound-alike substitutions may have occurred due to the inherent doe itations of voice recognition software. Please read the chart carefully and recognize, using context, where these substitutions have occurred. documented in this encounter Discharge Instructions Instructions Dominga Hernandez RN - 11/06/2016Formatting of this note might be different fro m the original. [facility] After Open [...] ed help. Don t lift anything heavier [id number] for 4-6 weeks. Until approved by your [...] the hospital, begin with short wal ks ([id number]) at home. Go a little longer each [...] symptoms you had prior to surgery Fever .0F New or spreading redness, swelling, drainage, or warmth at the incision site New or worsening shortness of breath Fainting Weight gain of more [id number] de99nswbi or more tkxr1xwlyst mx7uwfi(s) New or increasedswelling in your hands, feet, [...] person(s) in the waiting room?: Mary - [phone] Patient Signature: Clinician/Technical Consultant Signature: documented in this encounter Medications at [...] patient and daughter. Prescriptions reviewed, pt to peanut picker at [facility] pharmacy. Questions answered. Advised of follow up appointme nts and to schedule follow up with PCP. Pt given Mg citrate this am with multiple BM's. To s hower and change and DC home to [place] by car with daughter. Update: Pt showered, dressed. States that she has all belongings. WC transport placed to ok in doors. Daughter picked up meds at [...] PRIMARY HOSPITAL PROBLEM: Coronary artery disease involving [place] coronary artery of [place] heart with unstable miranda na pectoris (HCC) CHIEF COMPLAINT: CAD ASSESSMENT Anemia Assessment & Plan H/H 9.12/07 stable Hyperlipidemia, mixed Assessment & Plan Continue statin * Coronary artery disease involving [place] coronary artery of [place] heart with unstable an nayeli pectoris (HCC) Assessment & Plan POD #6 Coronary artery bypass grafting x3 (VERDUZCO-LAD, rSVG-Diag, rSVG-RCA) LVEF 65% prostoperatively. PLAN OK to dc to home follow up in [place] SUBJECTIVE DATA SUBJECTIVE: tired after having BM [...] PA- C - 11/06/2016 9:10 AM PDT [facility] Progress Note Pt. Name/Age/: Jaclyn Jackson 81 y.o. 1935 Med. Record Number: [id number] Date of admission: 11/01/2016 Hospital Day: 6 5 Days Post-Op Procedure: CABGx3 Date of Surgery: 11/01/16 Surgeon: Dr. Christina Loo MD. Anusha Flores PA-C assisting SUBJECTIVE Background History: 81 y.o. female with CAD admitted electively for above surgery Intraop findings: poor vein, composite graft from [facility] for diag; poor reop candidate. Nor mal [...] PLAN Principal Problem: Coronary artery disease involving [place] coronary artery of [place] heart with unstable an nayeli pectoris Active [...] Mario London PA-C 11/06/2016 9:10 Cardiothoracic Surgery [facility] [address] [place] [address] Portions of this chart may have been created with [employer] voice recognition software. Occasi onal wrong-word [...] PRIMARY HOSPITAL PROBLEM: Coronary artery disease involving [place] coronary artery of [place] heart with unstable miranda na pectoris (HCC) CHIEF COMPLAINT: Feeling well, no shortness of breath or chest pain ASSESSMENT Anemia Assessment & Plan H/H stable WBC trending down Oral Iron replacement? * Coronary artery disease involving [place] coronary artery of [place] heart with unstable an nayeli pectoris (HCC) [...] Portions of this chart were created with [employer] voice recognition software. Occasional wro ng-word or [...] feels quite well Follow-up can be in [place] from the cardiac standpoint They will talk with the surgeon regarding surgical follow-up and if it can be done locally or they need to come here. Suhail Flannery MD [facility] 11/05/2016 16:36 During this hospital visit, I [...] might be differen t from the original. [facility] Daily Progress Note 11/05/2016 Pt. Name/Age/: Jaclyn Jackson 81 y.o. 1935 Med. Record Number: [id number] Date of admission: 11/01/2016 Hospital Day: 5 4 Days Post-Op LVEF: 60-70 Procedure: CABGx3 Date of Surgery: 11/01/16 Surgeon: Dr. Christina Loo MD. Anusha Flores PA-C assisting Interval Events Uneventful night. ASSESSMENT: POD# 4 S/P CABGx3 - Overall doing well, hemodynamics stable, needs BM, on min imal O2, plan home tomorrow to [place] with daughter in law. Neuro: --Hx TIA [...] Dispo: --Plan home with family tomorrow to [place] --Will need to f/u with [facility] in 1 month --Ok per cardiology to f/u with cards in [place] CURRENT PLAN Increase norvasc Change IV to [...] Earlene Bonilla PA-C 11/05/2016 7:30 Cardiothoracic Surgery [facility] [address] [place] [address] I have participated in the care of [...] PRIMARY HOSPITAL PROBLEM: Coronary artery disease involving [place] coronary artery of [place] heart with unstable miranda na pectoris (HCC) CHIEF COMPLAINT: Tired, incisional pain but no chest pain or shortness of breath ASSESSMENT Anemia Assessment & Plan H/H 9.12/07 and stable WBC trending down * Coronary artery disease involving [place] coronary artery of [place] heart with unstable an nayeli pectoris (HCC) Assessment & Plan 11/01/2016: Coronary artery bypass grafting x3 (VERDUZCO-LAD, rSVG-Diag, rSVG-RCA) LVEF 65% pro stoperatively. -Continue Amlodipine, Aspirin, Statin, Metoprolol -ECG without acute changes PLAN Continue current medications Increase ambulation Follow up with Photovoltaic Technician in [place] SUBJECTIVE DATA REVIEW OF SYSTEMS: CV: negative [...] Portions of this chart were created with [employer] voice recognition software. Occasional wro ng-word or [...] presentation. Followup: She wants her followup in [place] and that is fine by me. I am not sure if surgical fo llowup in [place] is acceptable. Suhail Flannery MD [facility] 11/04/2016 17:32 During this hospital visit, I [...] Jackson DATE OF : 1935 MED RECORD: [id number] Pre-OP Dx Coronary artery disease Hypertension Dyslipidemia history of transient ischemic attack Hypothyroidism mild aortic regurgitation and calcified mitral annulus with calcium nodule in posterior mitral leaflet. Procedure 11/01/16 1. Coronary artery bypass surgery times 3, VERDUZCO to LAD, saphenous vein graft to diagonal, saphenous vein graft to right coronary artery. 2. Endoscopic vein harvest, left greater saphenous vein. SURGEON: Christina Loo MD ATTENDANT ARCADE: Anusha Flores PA-C SUBJECTIVE Sitting in chair. [...] 7.46 7.47 PO2ART 113* 118* 116* 156* JVA2HGD 44* 47* 33 35 [id number] 95.2 95.6 95.7 96.8 BEART -- -- [...] regarding this --home ~2d Serene Castillo PA-C [facility] 11/04/2016, 8:02 I have participated [...] Chronic low back pain 08/24/2014 Clotting disorder ([facility]) 2013 duodenal ulcer COPD (chronic obstructive pulmonary disease) ([facility]) DDD (degenerative disc disease), cervical 07/25/2016 DDD (degenerative disc disease), lumbar 08/24/2014 DJD (degenerative joint disease) 07/08/2013 Encounter for blood transfusion November 2013 Environmental allergies Essential hypertension Facet arthritis of lumbar region ([facility]) 08/24/2014 Foraminal stenosis of cervical region [...] 08/30/2010 Stenosis of cervical spine 07/25/2016 Stroke ([facility]) Apr 2010 TIA 05/08/2010 Tinea corporis 01/31/2015 UGIB (upper gastrointestinal bleed) 11/14/2013 Valvular heart disease 05/23/2010 Vertigo 09/03/2012 Past Surgical History: Procedure Laterality Date CARDIAC CATHERIZATION N/A 10/16/2016 Procedure: CV LHC; Surgeon: Irina Simms MD; Location: [facility] CV LAB COLONOSCOPY 05/2002; 03/28/10 next due 03/2020 FOOT FRACTURE SURGERY Left 2004 HEMORRHOID SURGERY [id number] Removal lower left nodules 2004 THYROIDECTOMY TONSILLECTOMY AND ADENOIDECTOMY 1955 UPPER GASTROINTESTINAL ENDOSCOPY 11/15/2013 EGD * IP RM: 428 * ; Laterality: N/A; Surgeon: Lauri Garrison MD; Location: [facility] MEDICAL PROCEDURE UNIT UPPER GASTROINTESTINAL ENDOSCOPY 11/04/2013 EGD IP 449; Laterality: N/A; Surgeon: Samm Pandya MD; Location: [facility] MEDICAL P ROCEDURE UNIT reports that she [...] Procedure Component Value Units Date/Time MRSA NAAT [[id number]] Collected: 10/31/16 1520 Order Status: Completed Lab [...] Electronically signed by: Flor Lynch Diabetes team, [facility] [phone] Autumn, JOSE ALBERTO Joseph - 11/03/2016 10:37 AM PDT PATIENT NAME: Jaclyn Jackson : 1935: AGE: 81 y.o. 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 -Continue Amlodipine, Aspirin, statin, Metoprolol -ECG without acute changes PLAN Continue current medications Patient would like to follow up with cardiology in [place] SUBJECTIVE DATA REVIEW OF SYSTEMS: CV: negative [...] Portions of this chart were created with [employer] voice recognition software. Occasional wro ng-word or [...] halls without problems She has an established director of strategic programs in [place] up with her. Suhail Flannery MD [facility] 11/03/2016 15:57 During this hospital visit, I personally interviewed and examined the patient. I confirmed the slaughter components of the history and PE. I reviewed the note as written by the midlevel pro vider, and discussed the patient with the provider team.I agree with the impressions and mamta ns and have listed any needed clarifications.Mando Calles MD - 11/03/2016 8:58 AM P DT [facility] HEART CARDIOTHORACIC SURGERY PROGRESS NOTE Pt. Name/Age/: Jaclyn Jackson 81 y.o. 1935 Med. Record Number: [id number] Date of admission: 11/01/2016 POD #2 Procedure: [...] cervical Cervical radiculopathy Coronary artery disease involving [place] coronary artery of [place] heart with unstable angina pectoris Stress hyperglycemia Electronically signed by: Otoniel Conroy PA-C Physician Quality Review Trainer [facility] Cardiothoracic Surgery 11/03/2016 8:58 [facility] Addendum: Agree with above. Making good progress. Mando Calles MD u, Suhail washington MD - 11/02/2016 11:21 AM PDT [facility]: PATIENT NAME: Jaclyn Jacksno : 1935: AGE: 81 y.o. ADMISSION DATE: 11/01/2016 Admitting Provider: Christina Loo MD Primary Provider: FLORA Morgan Hospital Day: Hospital Day: 2 LOS: 1 Code Status: Full Code Photovoltaic Technician: Suhail Flannery MD [facility] DATE OF SERVICE: 11/02/2016 PRIMARY HOSPITAL PROBLEM: CABG for 3 VD from [facility] CHIEF COMPLAINT: Chest pain and nausea ASSESSMENT Discussion: Chest pain and nausea Will reassess with EKG, but seems incisional to me EKG looks fine, minimal change Labs look good, and overall she seems to be doing well CT tube are out, and NSR Anemia Assessment & Plan Actually looks good with 9.9 post op (11.7 prior). 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 Total number o f images: 1. IMPRESSION: Fluoroscopic assisted right jugular venous access with Galva-Michael c atheter. Signed by: Fredy Miranda Xr [...] 11/02/16 0711/02/16 07 - 11/03/16 0700 Shift 7813-5501 9933-4618 24 Hour Total 1282-3337 7975-8234 24 Hour Total I N T A [...] note and vitals reviewed. Suhail Flannery MD [facility] 11/02/2016 11:21 eeves, Mando willis MD - 11/02/2016 7:46 AM PDT [facility] HEART CARDIOTHORACIC SURGERY PROGRESS NOTE Pt. Name/Age/: Jaclyn Jackson 81 y.o. 1935 Med. Record Number: [id number] Date of admission: 11/01/2016 POD 1 Procedure: Coronary artery bypass grafting x3 (VERDUZCO-LAD, rSVG-Diag, rSVG-RCA) Date of Procedure: 11/01/2016 Surgeon: Dr. Christina Loo MD. Aunsha Flores PA-C assisting Background History: 81 y.o. [...] -Levothyroxine 50 g daily Chronic pain -Takes [place] 7.5 and Voltaren ointment at home History [...] Electronically signed by: Amna Benavides PA-C Physician Quality Review Trainer [facility] Cardiothoracic Surgery 11/02/2016 7:46 [facility] Addendum: Doing well though difficult night [...] Sanchez LICSW - 11/01/2016 6:00 PM PDT [place]: Pt resides in [place], [place]. She has Medicare coverage. Will follow progress post op and any other therapy recommendations for discharge planning. Semaj Keith - 11/01/2016 2:22 PM PDTPatigabriel nt arrived to room 260, vitals stable. Sedated. Reported received. mna Benavides PA-C - 11/01/2016 1:26 PM PDT [facility] Immediate Post-Operative Note Subjective Pt. Name/Age/: Jaclyn Jackson 81 y.o. 1935 Med. Record Number: [id number] Date of admission: 11/01/2016 Procedure: Coronary artery [...] Results Component Value Date PHART 7.47 11/01/2016 NKP3BNE 36 11/01/2016 PO2ART 290 11/01/2016 [id number] 13.9 (L) 11/01/2016 LOB7NNN 26.0 11/01/2016 BEART 2.6 (H) 11/01/2016 HGB [...] -Levothyroxine 50 g daily Chronic pain -Takes [place] 7.5 and Voltaren ointment at home History of TIA -no neuro deficits upon admission History of asthma -uses albuterol at home Electronically signed by: Amna Benavides PA-C 11/01/2016 13:26 Cardiothoracic Surgery [facility] [address] [place] [address] Portions of this chart may have been created with [employer] voice recognition software. Occasi onal wrong-word [...] STREETER | | | | | | [id number] | | | | | | | | +--------+---------+ + + + | 11/21/ | Office | Cardiology | Yesi, | | 2019 | Visit | | JOSE ALBERTO Linder [address] | | | | | [place], | | | | | | [place] [address] | | | | | | [phone] | | | | | | | [...] Occurrences starting | | | | | [place] coronary | 11/04/2016 until | | | | | artery of [place] | 11/04/2016 | | | | | [...] involving | | | | | | [place] coronary | | | | | | artery of [place] | | | | | | heart [...] | | | | | | vessel, [place] or | | | | | | [...] whether | | | | | | [place] or | | | | | | [...] whether | | | | | | [place] or | | | | | | [...] whether | | | | | | [place] or | | | | | | [...] whether | | | | | | [place] or | | | | | | [...] whether | | | | | | [place] or | | | | | | [...] whether | | | | | | [place] or | | | | | | [...] whether | | | | | | [place] or | | | | | | [...] + + | Glucose | 114 (H)Comment: Barbadian | 65 - 99 mg/dL | [facility] | | | | Diabetes Association | [...] [facility]CR[facility] | [address] | [place] [address] | | | [facility] | [...] | [facility] | [address] | [place] [address] | | | [facility] | | | | | LABORATORY | [...] + + | [facility] | [address] | [place] [address] | | | [facility] | | | | | [...] + + | [facility] MIRAN[facility] | [address] | [place] [address] | | | [facility] | | | | | LABORATORY | [...] + + | [facility] | [address] | [place] [address] | | | [facility] | [...] + + | Glucose | 115 (H)Comment: Barbadian | 65 - 99 mg/dL | [facility] | | | | Diabetes Association | [...] | [facility] | [address] | [place] [address] | | | [facility] | | | | | LABORATORY | [...] + + | [facility]IO MIRAN[facility] | [address] | [place] [address] | | | [facility] | | | | | LABORATORY | [...] [address] | [place] [address] | | | [facility] | | | | | [...] [address] | [place] [address] | | | [facility] | | | | | [...] + | OLEGARIO MIRANDA | [address] | [place] [address] | | | [facility] | | | | | LABORATORY | [...] + + | [facility] MIRAN[facility] | [address] | [place] [address] | | | [facility] | [...] | TRACEMASTER | | Duration:140 msP Horizontal Adams:-43 degP Front Adams:60 degQ Onset:514 | | | msQRSD Interval:78 msQT Interval:384 msQTcB:426 msQTcF:412 msQRS | | | Horizontal Adams:3 degQRS Adams:21 degI-40 Horizontal Adams:-8 degI-40 | | | Front Adams:15 degT-40 Horizontal Adams:-6 degT-40 Front Adams:22 degT | | | Horizontal Adams:44 degT Wave Adams:12 degS-T Horizontal Adams:42 degS-T | | | Front Adams:22 degSeverity:- BORDERLINE ECG -INTERP:SINUS | | | RHYTHMINTERP:PROBABLE LEFT ATRIAL ABNORMALITYElectronically signed by: | | | PATRICK BURKETT 11-09-2016 13:17:14 | | |QTcB:426 ms | | |QTcF:412 ms | | |QRS Horizontal Adams:3 deg | | |QRS Adams:21 deg | | |I-40 Horizontal Adams:-8 deg | | |I-40 Front Adams:15 deg | | |T-40 Horizontal Adams:-6 deg | | |T-40 Front Adams:22 deg | | |T Horizontal Adams:44 deg | | |T Wave Adams:12 deg | | |S-T Horizontal Adams:42 deg | | |S-T Front Adams:22 deg | | |Severity:- BORDERLINE ECG - | | |INTERP:SINUS RHYTHM | | |INTERP:PROBABLE LEFT ATRIAL ABNORMALITY | | |Electronically signed by: PATRICK BURKETT 11-09-2016 13:17:14 | | + + + + + + + + | Performing | Address | City/State/Zipcode | Phone Number | | Organization | | | | + + + + + | [facility] | [address] | [place] [address] | [phone] | + + + + + POC [...] SACRED | [address] | [place] [address] | | | [facility] | [...] | [facility] | [address] | [place] [address] | | | [facility] | | | | | LABORATORY | [...] + + | O[facility]GARIO MIRANDA | [address] | [place] [address] | | | [facility] | | | | | LABORATORY | [...] [address] | [place] [address] | | | [facility] | | | | | [...] [address] | [place] [address] | | | [facility] | | | | | [...] | MARAHL[facility]ERTADGabriel MIRANDA | [address] | [place] [address] | | | [facility] | | | | | LABORATORY | [...] + + | OLEGARIO MIRANDA | [address] | [place] [address] | | | [facility] | | | | | [...] SACRED | [address] | [place] [address] | | | [facility] | | | | | [...] + + | [facility] | [address] | [place] [address] | | | [facility] | | | | | [...] | [facility] | [address] | [place] [address] | | | [facility] | | | | | [...] + + | Glucose | 131 (H)Comment: Barbadian | 65 - 99 mg/dL | [facility] | | | | Diabetes Association | [...] SACRED | [address] | [place] [address] | | | [facility] | | | | | [...] + + | MARAHLIBERTADGabriel GRAC[facility]RU | [address] | [place] [address] | | | [facility] | | | | | LABORATORY | [...] | [facility] | [address] | [place] [address] | | | [facility] | [...] [address] | [place] [address] | | | [facility] | [...] + + | OLEGARIO MIRANDA | [address] | [place] [address] | | | [facility] | | | | | LABORATORY | [...] + + | OLEGARIO SACRDRU | [address] | [place] [address] | | | [facility] | | | | | [...] [facility]CR[facility] | [address] | [place] [address] | | | [facility] | | | | | [...] + + | [facility] | [address] | [place] [address] | | | [facility] | | | | | LABORATORY | [...] + + | OLEGARIO MIRANDA | [address] | [place] [address] | | | [facility] | | | | | LABORATORY | [...] | [facility] | [address] | [place] [address] | | | [facility] | [...] | [facility] | [address] | [place] [address] | | | [facility] | | | | | LABORATORY | [...] + + | OLEGARIO MIRANDA | [address] | [place] [address] | | | [facility] | | | | | [...] + + | OLEGARIO MIRANDA | [address] | [place] [address] | | | [facility] | | | | | LABORATORY | [...] Patient | | | Name: JACLYN JACKSONJAQUELINE: [id number] | | | Study Date: 11/01/2016DOB: 1935 [...] central AI, no , trace TR, trace [place].5. Normal aorta other than mild | | [...] |Ordering Physician: Christina Loo MD | | |Assembler Dc Field Yoke: Fredy Almaguer MD | | | | | + + + + + | Procedure Note | + + | Remington, Rad Results In - 11/01/2016 2:28 PM PDT | | Adult Intra-Op | | ORA Report | | | | Patient Name: JACLYN JACKSON | | Study Date: 11/01/2016 | | : 1935 Gender: Female | | Age: 81 yrs Location: [facility] | | OOL | | [...] central AI, no , trace TR, trace [place]. | | 5. Normal aorta other than [...] Ordering Physician: Christina Loo MD | | Assembler Dc Field Yoke: Fredy Almaguer MD | + + Potassium [...] | [facility] | [address] | [place] [address] | | | [facility] | [...] + + | OLEGARIO MIRANDA | [address] | [place] [address] | | | [facility] | [...] | [facility] | [address] | [place] [address] | | | [facility] | | | | | [...] + + | [facility] | [address] | [place] [address] | | | [facility] | | | | | [...] + + | [facility] | [address] | [place] [address] | | | [facility] | [...] + | OLEGARIO MIRANDA | [address] | [place] [address] | | | [facility] | | | | | LABORATORY | [...] % | [facility] | | | | [id number] | | [facility] | | | | [...] + + | OLEGARIO MIRANDA | [address] | [place] [address] | | | [facility] | [...] | TRACEMASTER | | Duration:148 msP Horizontal Adams:6 degP Front Adams:72 degQ Onset:512 | | | msQRSD Interval:80 msQT Interval:452 msQTcB:463 msQTcF:459 msQRS | | | Horizontal Adams:16 degQRS Adams:56 degI-40 Horizontal Adams:49 degI-40 | | | Front Adams:45 degT-40 Horizontal Adams:-8 degT-40 Front Adams:59 degT | | | Horizontal Adams:66 degT Wave Adams:64 degS-T Horizontal Adams:66 degS-T | | | Front Adams:38 degSeverity:- NORMAL ECG -INTERP:SINUS | | | RHYTHMElectronically signed by: Ramin PEREZ 11-01-2016 16:20:01 | | |QT Interval:452 ms | | |QTcB:463 ms | | |QTcF:459 ms | | |QRS Horizontal Adams:16 deg | | |QRS Adams:56 deg | | |I-40 Horizontal Adams:49 deg | | |I-40 Front Adams:45 deg | | |T-40 Horizontal Adams:-8 deg | | |T-40 Front Adams:59 deg | | |T Horizontal Adams:66 deg | | |T Wave Adams:64 deg | | |S-T Horizontal Adams:66 deg | | |S-T Front Adams:38 deg | | |Severity:- NORMAL ECG - | | |INTERP:SINUS RHYTHM | | |Electronically signed by: Ramin PEREZ 11-01-2016 16:20:01 | | + + + + + + + + | Performing | Address | City/State/Zipcode | Phone Number | | Organization | | | | + + + + + | ROSEANN CORRE[facility] | [address] | [place] [address] | [phone] | + + + + + XR [...] + + | OLEGARIO MIRANDA | [address] | [place] [address] | | | [facility] | | | | | LABORATORY | [...] + | OLEGARIO MIRANDA | [address] | [place] [address] | | | [facility] | [...] + + | OLEGARIO MIRANDA | [address] | [place] [address] | | | [facility] | | | | | LABORATORY | [...] | [facility] SA[facility] | [address] | [place] [address] | | | [facility] | | | | | [...] + + | OLEGARIO MIRANDA | [address] | [place] [address] | | | [facility] | | | | | LABORATORY | [...] + + | OLEGARIO MIRANDA | [address] | [place] [address] | | | [facility] | | | | | LABORATORY | [...] | [facility] | [address] | [place] [address] | | | [facility] | [...] [address] | [place] [address] | | | [facility] | | | | | [...] | [facility] | [address] | [place] [address] | | | [facility] | | | | | [...] + + | OLEGARIO MIRANDA | [address] | [place] [address] | | | [facility] | [...] | [facility] | [address] | [place] [address] | | | [facility] | [...] + + | OLEGARIO MIRANDA | [address] | [place] [address] | | | [facility] | | | | | LABORATORY | [...] + + | OLEGARIO MIRANDA | [address] | [place] [address] | | | [facility] | | | | | LABORATORY | [...] | | | jugular venous access and Galva-Michael catheter and to the area of | | | segmental right lower lobe arteries. Total number of images: 1. | | | IMPRESSION: Fluoroscopic assisted right jugular venous access with | | | Galva-Michael catheter. Signed by: Fredy Miranda | | [...] image showing left jugular venous access and Galva-Michael | | catheter and to the area of segmental right lower lobe arteries. | | | | Total number of images: 1. | | | | IMPRESSION: | | Fluoroscopic assisted right jugular venous access with Galva-Michael | | catheter. | | | | [...] | [address] | [place] [address] | | | [facility] | | | | | [...] | MARAHLIBERTADGabriel MIRANDA | [address] | [place] [address] | | | [facility] | | | | | LABORATORY | [...] | [address] | [place] [address] | | | [facility] | [...] - 1.030 | [facility] | | | Milo | | | [facility] | | | [...] + + | OLEGARIO MIRANDA | [address] | [place] [address] | | | [facility] | | | | | LABORATORY | [...] | | | | | | [facility] [place] | | | | | | [facility] | | | | | | [facility] | | | | | | [facility] | | | | | | [facility] | | + + + + + + | Rh Type | Positive | | REFER[facility] | | | | | | [facility] [place] [place] | | | | | | [facility] | | | | | | [facility] | | | | | | [facility] | | | | | | [facility] | | + + + + + + | Antibody | NegativeComment: Patient | | REFERENCE | | | Screen | is remote crossmatch | | LAB [place] [place] | | | | eligible | | [...] + + + | Specimen Expiration Date: [id number] | [facility] | | | [facility] [place] [facility] | | | [facility] | | | [facility] | + + + + + + + + | Performing | Address | City/State/Zipcode | Phone Number | | Organization | | | | + + + + + | [facility] | [address] | [place] [address] | [phone] | | [place] | | | | | [facility] [...] + + | OLEGARIO MIRANDA | [address] | [place] [address] | | | [facility] | [...] + + | OLEGARIO MIRANDA | [address] | [place] [address] | | | [facility] | | | | | LABORATORY | | | | + + + + + Hemoglobin A1C (10/31/2016 4:09 PM PDT) + + + + + + | Component | Value | Ref Range | Performed | Pathologist | | | | | At | Signature | + + + + + + | Hemoglobin | 5.4Comment: [employer] | 4.3 - 6.1 % | [facility] [...] + + | [facility] | [address] | [place] [address] | | | [facility] | | | | | LABORATORY | [...] + + | OLEGARIO MIRANDA | [address] | [place] [address] | | | [facility] | | | | | [...] (H) | 21 - 28 mmol/L | [facility] | | [facility] | | | | | | [facility] | | | | | | MEDICAL | | | | | | CENTER | | | | | | LABORATORY | | + + + + + + | Glucose | 93Comment: Barbadian | 65 - 99 mg/dL | [employer] | | | | Diabetes Association | [...] + + | OLEGARIO MIRANDA | [address] | [place] [address] | | | [facility] | | | | | LABORATORY | [...] | TRACEMASTER | | Duration:148 msP Horizontal Adams:24 degP Front Adams:69 degQ Onset:512 | | | msQRSD Interval:84 msQT Interval:424 msQTcB:406 msQTcF:412 msQRS | | | Horizontal Adams:4 degQRS Adams:36 degI-40 Horizontal Adams: degI-40 | | | Front Adams:30 degT-40 Horizontal Adams:-7 degT-40 Front Adams:36 degT | | | Horizontal Adams:60 degT Wave Adams:61 degS-T Horizontal Adams:108 degS-T | | | Front Adams:89 degSeverity:- ABNORMAL ECG -INTERP:SINUS | | | RHYTHMINTERP:CONSIDER LEFT VENTRICULAR HYPERTROPHYElectronically | | | signed by: Ramin PEREZ 11-01-2016 06:15:12 | | |QTcB:406 ms | | |QTcF:412 ms | | |QRS Horizontal Adams:4 deg | | |QRS Adams:36 deg | | |I-40 Horizontal Adams: deg | | |I-40 Front Adams:30 deg | | |T-40 Horizontal Adams:-7 deg | | |T-40 Front Adams:36 deg | | |T Horizontal Adams:60 deg | | |T Wave Adams:61 deg | | |S-T Horizontal Adams:108 deg | | |S-T Front Adams:89 deg | | |Severity:- ABNORMAL ECG - | | |INTERP:SINUS RHYTHM | | |INTERP:CONSIDER LEFT VENTRICULAR HYPERTROPHY | | |Electronically signed by: Ramin PEREZ 11-01-2016 06:15:12 | | + + + + + + + + | Performing | Address | City/State/Zipcode | Phone Number | | Organization | | | | + + + + + | [facility] | [address] | [place] [address] | [phone] | + + + + + MRSA [...] + + | OLEGARIO MIRANDA | [address] 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
--- OUTSIDE RECORDS SUMMARY | ~2019-04-12 | XMS | Encounter Summary ---
Demographics + + + | Address | [address] | | | [place] [address] | + + + | Home Phone [...] Author | [facility] | | | and [place] | + + + | Organization | [facility] | | | and [...] | | | | | [place] [address] | | + + + + + | Hunter Jackson | ECON | [place] | | + + + + + | Wes Jackson | ECON | [place], [place] | | + + + + + | Oziel Jackson | ECON | [place], [place] | | + + + + + Care Team Providers + +------+ + | Care Adolescent Coordinator Name | Role | Phone | + +------+ + PCP | Unavailable | + +------+ + Encounter Details +--------+ + + + + | Date | Type | Department | Care Team | Description | +--------+ + + + + | 06/07/ | Hospital | [facility] | | | | 2010 | Encounter | MED CTR XRAY [address] | | | | | [address] | | | | | | [place] [address] | | | | | | [phone] | | | +--------+ + + + [...] STREETER | | | | | | [address] | | | | | | | | +--------+---------+ + + + | 11/21/ | Office | Cardiology | Yes[place], | | | 2019 | Visit | | JOSE ALBERTO [address] | | | | | | [place], | | | | | | [place] [address] | | | | | | [phone] | | | | | | | | +--------+---------+ + + + documented as of this encounter Visit Diagnoses Not on filedocumented in this encounter"
--- OUTSIDE RECORDS SUMMARY | ~2019-04-12 | XMS | Encounter Summary ---
Demographics + + + | Address | [address] | | | [place] [address] | + + + | Home Phone | | + + + | Preferred Language | Unknown | + + + | Marital Status | Single | + + + | Muslim Affiliation | Unknown | + + + | Race | Unknown | + + + | Ethnic Group | Other Race | + + + Author + + + | Author | [facility] | + + + | Organization | [facility] | + + + | Address | Unknown | + + + | Phone | Unavailable | + + + Support + + +---------+ + | Name | Relationship | Address | Phone | + + +---------+ + | None None | ECON | Unknown | Unavailable | + + +---------+ + Care Team Providers + +------+ + | Care Wildlife Officer Name | Role | Phone | + +------+ + PCP | Unavailable | + +------+ + Encounter Details +--------+ + + + + | Date | Type | Department | Care Team | Description | +--------+ + + + + | 06/05/ | Ancillary | [facility] | | | | 2005 | Registratio | Practice [address] | | | | | n | [facility] | | | | | | [place] [address] | | | | | | [phone] | | | +--------+ + + + [...]
--- OUTSIDE RECORDS SUMMARY | ~2019-04-12 | XMS | Encounter Summary ---
Demographics + + + | Address | [address] | | | [place] [address] | + + + | Home Phone [...] [facility] | | | and [place] | + + + | Organization | [facility] | | | and [place] | + + + | Address | Unknown | + + + | Phone | Unavailable | + + + Support + + + + + | Name | Relationship | Address | Phone | + + + + + | Osmin Jackson | ECON | [address] | | | | | [place] [address] | | + + + + + | Hunter Jackson | ECON | [place] | | + + + + + | Wes Jackson | ECON | [place], [place] | | + + + + + | Oziel Jackson | ECON | [place], [place] | | + + + + + Care Team Providers + +------+ + | Care Indirect Sales Representative Name | Role | Phone | + +------+ + | Rodolfo Cruz MD | PCP | | + +------+ + Reason for Visit +---------+ + | Reason | Comments | +---------+ + | Results | | +---------+ + Encounter Details +--------+ + + + + | Date | Type | Department | Care Team | Description | +--------+ + + + + | 10/31/ | Telephone | [facility] | Rodolfo Cruz, | Results | | 2014 | | MEDICINE [facility] | [address] | | | | | [place] | [place] [address] | | | | | [place] [address] | [address] | | | | | [phone] | | | +--------+ + + + [...] STREETER | | | | | | [address] | | | | | | | | +--------+---------+ + + + | 11/21/ | Office | Cardiology | Yesi, | | | 2019 | Visit | | JOSE ALBERTO [address] | | | | | | [place] | | | | | | [place] [address] | | | | | | [phone] | | | | | | | | +--------+---------+ + + + +------+------+--------+ + + | Name | Type | Priori | Associated Diagnoses | Order Schedule | | | | ty | | | +------+------+--------+ + + | TSH | Lab | Routin | Other specified | 1 Occurrences | | | | e | hypothyroidism | starting 11/02/2014 | | | | | | until 11/03/2015 | +------+------+--------+ + + documented as of this encounter Visit Diagnoses + + | Diagnosis | + + | Other specified hypothyroidism - Primary | + + documented in this encounter"
--- OUTSIDE RECORDS SUMMARY | ~2019-04-12 | XMS | Encounter Summary ---
Demographics + + + | Address | [address] | | | [place] [address] | + + + | Home Phone [...] | Author | [facility] | | | and [place] | + + + | Organization | [facility] | | | and [place] | + + + | Address | Unknown | + + + | Phone | Unavailable | + + + Support + + + + + | Name | Relationship | Address | Phone | + + + + + | Osmin Jackson | ECON | [address] | | | | | [place] [address] | | + + + + + | Hunter Jackson | ECON | [place] | | + + + + + | Wes Jackson | ECON | [place], [place] | | + + + + + | Oziel Jackson | ECON | [place], [place] | | + + + + + Care Team Providers + +------+ + | Care Rn Correctional Name | Role | Phone | + [...] | Rodolfo Reilly MD | [address] | | | | | sprain and | [address] | [place], | | | | | strain, | [address]VE [place] | [place] | | | | | initial | [place], [place] | [address] | | | | | encounter | [address] | Phone: | | | | | Procedures | Phone: | [phone] | | | | | MRI Thoracic | [phone] | Fax: | | | | | Spine wo | Fax: | [phone] | | | | | Contrast | [phone] | | +--------+--------+ + + + + Reason for Visit + + + | Reason | Comments | + + + | Follow-up | 3 month | + + + Encounter Details +--------+---------+ + + + | Date | Type | Department | Care Team | Description | +--------+---------+ + + + | 10/12/ | Office | [facility] | Rodolfo Cruz, | Thoracic sprain and | | 2013 | Visit | MEDICINE [address] [place] [address] | [address] | strain, initial | | | | Street [place] | [place] [address] | encounter (Primary | | | | [place] [address] | [address] | Dx) | | | | [phone] | | | +--------+---------+ + + + [...] + + + | Blood Pressure | 130/70 | 10/12/2013 1:19 PM | | | | | PDT | | + + + + + | Pulse | 66 | 10/12/2013 1:19 PM | | | | | PDT | | + + + + + | Temperature | 36.6 C (97.9 F) | 10/12/2013 1:19 PM | | | | | PDT | | + + + + + | Respiratory Rate | 16 | 10/12/2013 1:19 PM | | | | | PDT | | + + + + + | Oxygen Saturation | 95% | 10/12/2013 1:19 PM | | | | | PDT | | + + + + + | Inhaled Oxygen | - | - | | | Concentration | | | | + + + + + | Weight | 93 kg (205 lb) | 10/12/2013 1:19 PM | | | | | PDT | | + + + + + | Height | 167.6 cm (5' 6") | 10/12/2013 1:19 PM | | | | | PDT | | + + + + + | Body Mass Index | 33.09 | 10/12/2013 1:19 PM | | | | | PDT | | + + + + + documented in this encounter Progress Notes Rodolfo Cruz MD - 10/12/2013 1:45 PM PDTFormatting of this note might be different f rom the original. Subjective: Patient ID: Soumya Jackson is a 78 y.o. female. HPI Ride mid back pain unchanged from previous. Pain has been going on a month. The pain is really bothering. There is weakness in the back with posture. PT is not really helping so far. The therapist thinks she should be back in the pool. Sometimes it seems like she is o n fire when it wraps around to the right. The muscle is expensive and helps only some. Review of Systems Objective: Physical Exam Heent, WNL, No carotid bruit Chest CTAB Heart RR&R /s M Abd S,NT,ND,BS+ Ext, no CCor E Neuro Non-focal Lymph, no cervical, axillary, inguinal adenopathy Musculoskeletal, no gross deformity or loss or range of motion Skin, no gross lesions Assessment: 1. Thoracic sprain and strain, initial encounter HYDROcodone-acetaminophen (NORCO) 5-325 m g per tablet, MRI Thoracic Spine wo Contrast Plan: Flexeril is really contraindicated in the elderly but pt had automotive brake technician friend who recommend ed the medication. We went over potential SE's of the medication and Soumya declined it. RTC 3 weeks. Continue PT, Refill hydrocodone and skelaxin. documented in this encounter Plan of Treatment +--------+---------+ + + + | Date | Type | Specialty | Care Team | Description | +--------+---------+ + + + | 06/02/ | Office | Orthopedic Surgery | Ulysses Jensen, | | | 2019 | Visit | | MD [address] | | | | | | [place], [place] | | | | | | [address] | | | | | | | | +--------+---------+ + + + | 11/21/ | Office | Cardiology | Yesi, | | | 2019 | Visit | | JOSE ALBERTO [address] | | | | | | [address] [place], | | | | | | [place] [address] | | | | | | [phone] | | | | | | | | +--------+---------+ + + + documented as of this encounter Results MRI Thoracic Spine wo [...] and is similar to previous MRI from 2010. Degenerative disc | | | disease, spondylosis and mild retrolisthesis are again visible at | | | several mid to lower thoracic levels and appear grossly stable, along | | | with fairly mild appearing central canal stenosis, allowing for | | | limitations of the large qflfp-bv-rsgm sagittal images provided. | | | Cervical [...] noted at the base of the right Q0lnymgggdnk process. A 3.1 cm rounded | | region of heterogeneously decreased X1dckxxv is noted in the left humeral head [...] issimilar to previous | | MRI from 2010. Degenerative disc disease, spondylosis andmild retrolisthesis are again | | visible at several mid to lower thoracic levelsand appear grossly stable, along with | | fairly mild appearing central canalstenosis, allowing for limitations of the large | | soxtj-yn-epuh sagittal imagesprovided. Cervical neural foramina are not [...] + | MISCELLANEOUS LAB | | | [phone] | + +---------+ + + | MISCELANIOUS LAB | | | [phone] | + +---------+ + + documented in this encounter Visit Diagnoses + + | Diagnosis | + + | Thoracic sprain and strain, initial encounter - Primary | + + documented in this encounter
--- OUTSIDE RECORDS SUMMARY | ~2019-04-12 | XMS | Encounter Summary ---
Demographics + + + | Address | [address] | | | [place] [address] | + + + | Home Phone | | + + + | Preferred Language | Unknown | + + + | Marital Status | | + + + | Yazidi Affiliation | Unknown | + + + | Race | Unknown | + + + | Ethnic Group | Unknown | + + + Author + + + | Author | [facility] | | | and [place] | + + + | Organization | [facility] | | [...] | | | | | [place] [address] | | + + + + + | Hunter Jackson | ECON | [place] | | + + + + + | Wes Jackson | ECON | [place], [place] | | + + + + + | Oziel Jackson | ECON | [place], [place] | | + + + + + Care Team Providers + +------+ + | Care Youth Development Specialist Name | Role | Phone [...] | Rodolfo Reilly MD | [address] | | | | | sprain and | [address] | [place], | | | | | strain, | [address]VE [place] | [place] | | | | | initial | [place], [place] | [address] | | | | | encounter | [address] | Phone: | | | | | Procedures | Phone: | [phone] | | | | | MRI Thoracic | [phone] | Fax: | | | | | Spine wo | Fax: | [phone] | | | | | Contrast | [phone] | | +--------+--------+ + + + + Reason for Visit + + + | Reason | Comments | + + + | Follow-up | 3 month | + + + Encounter Details +--------+---------+ + + + | Date | Type | Department | Care Team | Description | +--------+---------+ + + + | 10/12/ | Office | [facility] | Rodolfo Cruz, | Thoracic sprain and | | 2013 | Visit | MEDICINE [address] [place] [address] | [address] | strain, initial | | | | Street [place] | [place] [address] | encounter (Primary | | | | [place] [address] | [address] | Dx) | | | | [phone] | | | +--------+---------+ + + + [...] contraindicated in the elderly but pt had library cataloging technician friend who recommend ed the medication. [...] [place] | | | | | | [address] | | | | | | | | +--------+---------+ + + + | 11/21/ | Office | Cardiology | Yesi, | | | 2019 | Visit | | JOSE ALBERTO [address] | | | | | | [place], | | | | | | [place] [address] | | | | | | [phone] | | | | | | | [...] | | | limitations of the large abclh-pp-fkzl sagittal images provided. | | | Cervical [...] noted at the base of the right D1vconfzdzoq process. A 3.1 cm rounded | | region of heterogeneously decreased N9qnoavp is noted in the left humeral head [...] for limitations of the large | | nsitl-rv-fynd sagittal imagesprovided. Cervical neural foramina are not [...] + | MISCELLANEOUS LAB | | | [phone] | + +---------+ + + | MISCELANIOUS LAB | | | [phone] | + +---------+ + + documented in this encounter Visit Diagnoses + + | Diagnosis | + + | Thoracic sprain and strain, initial encounter - Primary | + + documented in this encounter
--- OUTSIDE RECORDS SUMMARY | ~2019-04-12 | XMS | Encounter Summary ---
Demographics + + + | Address | [address] | | | [place] [address] | + + + | Home Phone [...] Author | [facility] | | | and [place] | + + + | Organization | [facility] | | [...] | | | | | [place] [address] | | + + + + + | Hunter Jackson | ECON | [place] | | + + + + + | Wes Jackson | ECON | [place], [place] | | + + + + + | Oziel Jackson | ECON | [place], [place] | | + + + + + Care Team Providers + +------+ + | Care Distillation Operator Name | Role | Phone | [...] | 07/25/ | Refill | [facility] | Rodolfo Cruz, | Medication Refill | | 2016 | | MEDICINE [address] | [address] | | | | | [place] | [place] [address] | | | | | [place] [address] | [address] | | | | | [phone] | | | +--------+--------+ + + + [...] | | | | | | [place] [address] | | | | | | [phone] | | | | | | | | +--------+---------+ + + + documented as of this encounter Visit Diagnoses Not on filedocumented in this encounter"
--- OUTSIDE RECORDS SUMMARY | ~2019-04-12 | XMS | Encounter Summary ---
Demographics + + + | Address | [address] | | | [place] [address] | + + + | Home Phone | | + + + | Preferred Language | Unknown | + + + | Marital Status | | + + + | Mormon Affiliation | Unknown | + + + | Race | Unknown | + + + | Ethnic Group | Unknown | + + + Author + + + | Author | Located Within [facility] | | | and [place] | + + + | Organization | Located [facility] | | | and [place] | + + + | Address | Unknown | + + + | Phone | Unavailable | + + + Support + + + + + | Name | Relationship | Address | Phone | + + + + + | Osmin Jackson | ECON | [address] | | | | | [place] [address] | | + + + + + | Hunter Jackson | ECON | [place] | | + + + + + | Wes Jackson | ECON | [place], [place] | | + + + + + | Oziel Jackson | ECON | [place], [place] | | + + + + + Care Team Providers + +------+ + | Care Junior Art Director Name | Role | Phone | + +------+ + | Kellie Gunderson | PCP | | + +------+ + Encounter Details +--------+ + + + + | Date | Type | Department | Care Team | Description | +--------+ + + + + | 10/31/ | Hospital | [facility] | Amna Benavides, | | | 2016 | Encounter | HEART MED CTR XRAY | [address] | | | | | [address] | [address] [place] | | | | | [place], [place] | [address] | | | | | [address] | | | | | | [phone] | | | +--------+ + + + [...] [address]ET[place] | | | | | | [address] | | | | | | | | +--------+---------+ + + + | 11/21/ | Office | Cardiology | Yesi, | | | 2019 | Visit | | JOSE ALBERTO Linder [address] | | | | | | [place], | | | | | | [place] [address] | | | | | | [phone] | | | | | | | [...] + documented in this encounter Results XR Chest PA and Lateral (10/31/2016 4:39 [...]
--- OUTSIDE RECORDS SUMMARY | ~2019-04-12 | XMS | Encounter Summary ---
Demographics + + + | Address | [address] | | | [place] [address] | + + + | Home Phone | | + + + | Preferred Language | Unknown | + + + | Marital Status | | + + + | Orthodox Affiliation | Unknown | + + + | Race | Unknown | + + + | Ethnic Group | Unknown | + + + Author + + + | Author | [facility] | | | and [place] | + + + | Organization | [facility] | | | and [...] | | | | | [place] [address] | | + + + + + | Hunter Jackson | ECON | [place] | | + + + + + | Wes Jackson | ECON | [place], [place] | | + + + + + | Oziel Jackson | ECON | [place], [place] | | + + + + + Care Team Providers + +------+ + | Care Pin Ball Machine Mechanic Name | Role | Phone | + [...] | Rodolfo Reilly MD | [address] | | | | | sprain and | [address] | [place], | | | | | strain, | [address]VE [place] | [place] | | | | | initial | [place] | [address] | | | | | encounter | [address] | Phone: | | | | | Procedures | Phone: | [phone] | | | | | MRI Thoracic | [phone] | Fax: | | | | | Spine wo | Fax: | [phone] | | | | | Contrast | [phone] | | +--------+--------+ + + + + [...] | Rodolfo Reilly MD | [address] | | | | | sprain and | [address] | [place], | | | | | strain, | AVE [place] | [place] | | | | | initial | [place], [place] | [address] | | | | | encounter | [address] | Phone: | | | | | Procedures | Phone: | [phone] | | | | | MRI Thoracic | [phone] | Fax: | | | | | Spine wo | Fax: | [phone] | | | | | Contrast | [phone] | | +--------+--------+ + + + + Encounter Details +--------+ + + + + | Date | Type | Department | Care Team | Description | +--------+ + + + + | 10/26/ | Hospital | [facility] | Rodolfo Cruz, | Thoracic sprain and | | 2013 | Encounter | MED CTR MRI [address] | strain, initial | | | | [place], | [place], [place] | encounter | | | | [place] [address] | [address] | | | | | [phone] | | | +--------+ + + + [...] [place] | | | | | | [address] | | | | | | | | +--------+---------+ + + + | 11/21/ | Office | Cardiology | Yeis, | | | 2019 | Visit | | JOSE ALBERTO Linder [address] | | | | | | [place], | | | | | | [place] [address] | | | | | | [phone] | | | | | | | [...] | | | limitations of the large bztsz-cx-xban sagittal images provided. | | | Cervical [...] noted at the base of the right [id number] process. A 3.1 cm rounded | | region of heterogeneously decreased K4olpwly is noted in the left humeral head [...] for limitations of the large | | agxfd-lp-yrpc sagittal imagesprovided. Cervical neural foramina are not [...] + | MISCELLANEOUS LAB | | | [phone] | + +---------+ + + | MISCELANIOUS LAB | | | [phone] | + +---------+ + + documented in this encounter Visit Diagnoses + + | Diagnosis | + + | Thoracic sprain and strain, initial encounter | + + documented in this encounter"
--- OUTSIDE RECORDS SUMMARY | ~2019-04-12 | XMS | Encounter Summary ---
Demographics + + + | Address | [address] | | | [place] [address] | + + + | Home Phone | | + + + | Preferred Language | Unknown | + + + | Marital Status | | + + + | Rastafari Affiliation | Unknown | + + + | Race | Unknown | + + + | Ethnic Group | Unknown | + + + Author + + + | Author | [facility] | | | and [place] | + + + | Organization | [facility] | | | and [place] | + + + | Address | Unknown | + + + | Phone | Unavailable | + + + Support + + + + + | Name | Relationship | Address | Phone | + + + + + | Osmin Jackson | ECON | [address] | | | | | [place] [address] | | + + + + + | Hunter Jackson | ECON | [place] | | + + + + + | Wse Jackson | ECON | [place], [place] | | + + + + + | Oziel Jackson | ECON | [place], [place] | | + + + + + Care Team Providers + +------+ + | Care Stator Winder Name | Role | Phone | + +------+ + | Rodolfo Cruz MD | PCP | | + +------+ + Encounter Details +--------+ + + + + | Date | Type | Department | Care Team | Description | +--------+ + + + + | 07/07/ | Hospital | [facility] | Rodolfo Cruz, | Pain | | 2014 | Encounter | MED CTR DIONE XRAY | [address] | | | | | [address] [place] | [place] [address] | | | | | [place] | [address] | | | | | [address] | | | | | | [phone] | | | +--------+ + + + [...] | | | | | [place] | | | | | | [address] | | | | | | | | +--------+---------+ + + + | 11/21/ | Office | Cardiology | Yesi, | | | 2019 | Visit | | JOSE ALBERTO Linder [address] | | | | | | [place], | | | | | | [place] [address] | | | | | | [phone] | | | | | | | | +--------+---------+ + + + documented as of this encounter Procedures + +--------+ + + + | Procedure Name | Priori | Date/Time | Associated Diagnosis | Comments | | | ty | | | | + +--------+ + + + | XR THORACIC SPINE 2 | Routin | 07/07/2014 | Pain | Results for this | | VW | e | 12:04 PM | | procedure are in the | | | | PST | | results section. | + +--------+ + + + | XR CERVICAL SPINE 2 | Routin | 07/07/2014 | Pain | Results for this | | OR 3 VIEWS | e | 12:04 PM | | procedure are in the | | | | PST | | results section. | + +--------+ + + + documented in this encounter Results XR CERVICAL SPINE 2 OR 3 VIEWS (07/07/2014 12:04 PM PST) + + | Specimen | + + | | + + + + + | Narrative | Performed At | + + + | XR CERVICAL SPINE 2 OR 3 VIEWS. 07/07/2014 12:04 PM HISTORY: | [facility] | | pain . COMPARISON: 10/23/2010 FINDINGS: There is pronounced | [facility] | | reversal of the cervical lordosis centered at C4-5, as can be seen | [facility] | | on the basis of degenerative change and/or muscle spasm. There is | - IMAGING | | retrolisthesis of C5 on C6 and C6 on C7 . There is diffuse | | | degenerative disc disease, greatest in the mid cervical spine, with | | | decreased disc height at C4-5, C5-6, and C6-7. There is diffuse | | | uncinate process spurring, greatest in the mid cervical spine, with | | | facet degenerative change seen in the mid and lower cervical spine. | | | Degenerative change is present at the atlantoaxial articulation. | | | The lateral masses of C1 and C2 are well aligned. No evidence of | | | fracture of the odontoid. Prevertebral and paraspinal soft tissues are | | | unremarkable. IMPRESSION - Pronounced reversal of the | | | cervical lordosis centered at C4-5, as can be seen with degenerative | | | change and/or muscle spasm. Diffuse degenerative disc disease and | | | spondylotic change with spondylolisthesis, as described above. No | | | evidence of acute fracture or subluxation. Dictated and Signed | | | by: Gaurav Masters MD Electronically signed: 07/07/2014 2:21 PM | | | | | + + + + + | Procedure Note | + + | Remington, Rad Results In - 07/07/2014 2:25 PM PST XR CERVICAL SPINE 2 OR 3 VIEWS. | | 07/07/2014 12:04 PMHISTORY: pain . COMPARISON: 10/23/2010FINDINGS:There is pronounced | | reversal of the cervical lordosis centered at C4-5, as canbe seen on the basis of | | degenerative change and/or muscle spasm. There isretrolisthesis of C5 on C6 and C6 on | | C7 . There is diffuse degenerative discdisease, greatest in the mid cervical spine, | | with decreased disc height at C4-5,C5-6, and C6-7. There is diffuse uncinate process | | spurring, greatest in the midcervical spine, with facet degenerative change seen in the | | mid and lowercervical spine. Degenerative change is present at the | | atlantoaxialarticulation. The lateral masses of C1 and C2 are well aligned. No | | evidence offracture of the odontoid. Prevertebral and paraspinal soft tissues | | areunremarkable.IMPRESSION -Pronounced reversal of the cervical lordosis centered at | | C4-5, as can be seenwith degenerative change and/or muscle spasm. Diffuse degenerative | | disc diseaseand spondylotic change with spondylolisthesis, as described above. No | | evidenceof acute fracture or subluxation.Dictated and Signed by: Gaurav Masters MD | | Electronically signed: 07/07/2014 2:21 PM | |fracture of the odontoid. Prevertebral and paraspinal soft tissues are | |unremarkable. | | | | | |IMPRESSION - | |Pronounced reversal of the cervical lordosis centered at C4-5, as can be seen | |with degenerative change and/or muscle spasm. Diffuse degenerative disc disease | |and spondylotic change with spondylolisthesis, as described above. No evidence | |of acute fracture or subluxation. | | | |Dictated and Signed by: Gaurav Masters MD | | Electronically signed: 07/07/2014 2:21 PM | + + + + + + + | Performing | Address | City/State/Zipcode | Phone Number | | Organization | | | | + + + + + | [facility] | [address] | [place], [place] | [phone] | | [facility] | | [address] | | | - IMAGING | | | | + + + + + XR Thoracic Spine 2 Vw (07/07/2014 12:04 PM PST) + + | Specimen | + + | | + + + + + | Narrative | Performed At | + + + | XR THORACIC SPINE 2 VW. 07/07/2014 12:04 PM HISTORY: pain . | [facility] | | COMPARISON: MRI thoracic spine 10/26/2013 FINDINGS: There is | [facility] | | levoconvex curvature of the mid to upper thoracic spine, similar to | [facility] | | the CT from 02/22/2014. There is mild exaggeration of the thoracic | - IMAGING | | kyphosis. Vertebral body alignment is otherwise maintained in the | | | thoracic spine. There is diffuse degenerative disc disease. | | | Vertebral body heights are maintained. Visualized intrathoracic | | | structures are unremarkable. IMPRESSION - Diffuse degenerative | | | disc disease with mild exaggeration of thoracic kyphosis and mild | | | scoliotic curvature, without evidence of compression fracture | | | deformity. Dictated and Signed by: Gaurav Masters MD | | | Electronically signed: 07/07/2014 2:24 PM | | + + + + + | Procedure Note | + + | Remington, Zoltan Results In - 07/07/2014 2:27 PM PST XR THORACIC SPINE 2 VW. 07/07/2014 | | 12:04 PMHISTORY: pain . COMPARISON: MRI thoracic spine 10/26/2013FINDINGS:There is | | levoconvex curvature of the mid to upper thoracic spine, similar to theCT from | | 02/22/2014. There is mild exaggeration of the thoracic kyphosis. Vertebral body | | alignment is otherwise maintained in the thoracic spine. Thereis diffuse degenerative | | disc disease. Vertebral body heights are maintained. Visualized intrathoracic | | structures are unremarkable.IMPRESSION -Diffuse degenerative disc disease with mild | | exaggeration of thoracic kyphosisand mild scoliotic curvature, without evidence of | | compression fracturedeformity.Dictated and Signed by: Gaurav Masters MD | | Electronically signed: 07/07/2014 2:24 PM | |is diffuse degenerative disc disease. Vertebral body heights are maintained. | |Visualized intrathoracic structures are unremarkable. | | | | | |IMPRESSION - | |Diffuse degenerative disc disease with mild exaggeration of thoracic kyphosis | |and mild scoliotic curvature, without evidence of compression fracture | |deformity. | | | |Dictated and Signed by: Gaurav Masters MD | | Electronically signed: 07/07/2014 2:24 PM | + + + + + + + | Performing | Address | City/State/Zipcode | Phone Number | | Organization | | | | + + + + + | [facility] | [address] | [place] | [phone] | | [facility] | | [address] | | | - IMAGING | | | | + + + + + documented in this encounter Visit Diagnoses + + | Diagnosis | + + | Pain Generalized pain | + + documented in this encounter"
--- OUTSIDE RECORDS SUMMARY | ~2019-04-12 | XMS | Encounter Summary ---
Demographics + + + | Address | [address] | | | [place] [address] | + + + | Home Phone | | + + + | Preferred Language | Unknown | + + + | Marital Status | | + + + | Confucianism Affiliation | Unknown | + + + | Race | Unknown | + + + | Ethnic Group | Unknown | + + + Author + + + | Author | [facility] | | | and [place] | + + + | Organization | [facility] | | | and [...] | | | | | [place] [address] | | + + + + + | Hunter Jackson | ECON | [place] | | + + + + + | Wes Jackson | ECON | [place], [place] | | + + + + + | Oziel Jackson | ECON | [place], [place] | | + + + + + Care Team Providers + +------+ + | Care Lamp Shades Supervisor Name | Role | Phone | [...] | | | pain, right | | [address] [place] | | | | | upper | | [place], [place] | | | | | quadrant | | [address] | | | | | Back pain | | Phone: | | | | | Hyperlipidem | | [phone] | | | | | ia Upper GI | | Fax: | | | | | bleeding | | [phone] | | | | | Hypothyroidi | [...] + + | 11/14/ | Hospital | [facility] | Freddy, | Upper GI bleeding | | 2014 - | Encounter | [facility] | Rodolfo Desir MD [address] | (Primary Dx); | | | | [address] [place] | [address] [place] | Duodenal ulcer; | | 11/17/ | | [place] [address] | [place] [address] | Asthma; | | 2013 | | [phone] | [phone] | Hyperlipidemia; Back | | | | | | pain; | | | | | Peng Godinez, | Hypothyroidism; | | | | | [address] | Hypertension; | | | | | [place], [place] | Abdominal pain, | | | | | [address] | right upper | | | | [...] might be different f rom the original. [facility] Service: Hospitalist Physician Discharge Summary Pt: Soumya Jackson AGE/SEX: 78 y.o. female ROOM: [address] [place] [address] PCP: Rodolfo Cruz : 1935 Admit date: [...] upper GI bleed(duodenal ulcers) leading to ac cahto blood loss anemia. 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 You may get these medications from any [...] might be different f rom the original. [facility] Service: Hospitalist Progress Note Pt: Soumya Jackson AGE/SEX: 78 y.o. female ROOM: [address] [place] [address] : 1935 PCP: Rodolfo Cruz ADMIT DATE: 11/14/2013 TODAY'S DATE: 11/16/2013 Hospital Day/Hospital Course: LOS: 2 days 78 years old female past medical history of hypothyroidism, benign hypertension, hyperlipid emia came to the hospital with weakness due to upper GI bleed(duodenal ulcers) leading to ac cahto blood loss anemia. She is status post [...] mg/hr (11/16/13 0651) PRN Medications albuterol, [COMPLETED] ystuvadr-klsgawkmoo-txonndzfib, diphenhydrAMINE, HYDROcodone-acetami nophen, HYDROmorphone, LORazepam, [COMPLETED] meperidine, [...] upper GI bleed(duodenal ulcers) leading to ac cahto blood loss anemia. She is status post [...] PM PDT HOSPITALIST PROGRESS NOTE on 11/15/2013 [facility] Pt. Name/Age/: Soumya Jackson 78 y.o. 1935 Med. Record Number: [id number] Primary Care Physician: Rodolfo Cruz Date of [...] -- No results found for this basename: PHART:3,PO2ART:3,BYP0XWT:3,T4EJUPLS:3,BEART:[address] 168 hours No [...] signed by: Peng Godinez MD, 11/15/2013 12:08 LOCATED WITHIN [facility] Portions of this chart may have been created with[employer] voice recognition software. Occas ional wrong-word or [...] [place] | | | | | | [address] | | | | | | | | +--------+---------+ + + + | 11/21/ | Office | Cardiology | Yesi, | | | 2019 | Visit | | JOSE ALBERTO Linder [address] | | | | | | [place], | | | | | | [place] [address] | | | | | | [phone] | | | | | | | [...] + + + | UNIT # | [id number] | | [facility] | | | | [...] + | [facility] | [address] | [place] | | | [facility] | | [address] | | | - BLOOD BANK | [...] + + + | UNIT # | [id number] | | [facility] | | | | [...] ST. | [address] | [place] | | | [facility] | | [address] | | | - BLOOD BANK | [...] | Basophils | | K/uL | [facility] | | | | | [...] [address] | [place] | [phone] | | [facility] | | [address] | | | - LABORATORY | | | | + + + + + | [facility] | [address] | [place], [place] | | | [facility] | | [address] | | | - LABORATORY | | | | + + + + + Basic Metabolic Panel (11/17/2013 6:03 AM PDT) + + + + + + | Component | Value | Ref Range | Performed | Pathologist | | | | | At | Signature | + + + + + + | Na | 139 | 136 - 149 | [facility] | | | | | mmol/L | [...] | | | | | | [facility] | | | | [...] mL/min/1.73m2 | [facility] | | | CYMRO | RATE,ESTIMATED | | MEDICAL | | | | mL/min/1.02b6Ifky than | | CENTER - | | [...] + | [facility] | [address] | [place] | [phone] | | [facility] | | [address] | | | - LABORATORY | | | | + + + + + | [facility] | [address] | [place] | | | [facility] | | [address] | | | - LABORATORY | | [...] + | [facility] | [address] | [place], [place] | [phone] | | [facility] | | [address] | | | - LABORATORY | | | | + + + + + | [facility] | [address] | [place], [place] | | | [facility] | | [address] | | | - LABORATORY | | [...] + | [facility] | [address] | [place] | [phone] | | [facility] | | [address] | | | - LABORATORY | | | | + + + + + | [facility] | [address] | [place] | | | [facility] | | [address] | | | - LABORATORY | | [...] [address] | [place] | [phone] | | [facility] | | [address] | | | - LABORATORY | | | | + + + + + | [facility] | [address] | [place] | | | [facility] | | [address] | | | - LABORATORY | | [...] [address] | [place] | [phone] | | [facility] | | [address] | | | - LABORATORY | | | | + + + + + | [facility] | [address] | [place] | | | [facility] | | [address] | | | - LABORATORY | | [...] mL/min/1.73m2 | [facility] | | | [facility] | RATE,ESTIMATED | | MEDICAL | | | | mL/min/1.55k4Cwxf than | | CENTER - | | [...] + | [facility] | [address] | [place] | [phone] | | [facility] | | [address] | | | - LABORATORY | | | | + + + + + | [facility] | [address] | [place] | | | [facility] | | [address] | | | - LABORATORY | | [...] + | [facility] | [address] | [place], [place] | [phone] | | [facility] | | [address] | | | - LABORATORY | | | | + + + + + | [facility] | [address] | [place], [place] | | | [facility] | | [address] | | | - LABORATORY | | [...] + | [facility] | [address] | [place] | [phone] | | [facility] | | [address] | | | - LABORATORY | | | | + + + + + | [facility] | [address] | [place] | | | [facility] | | [address] | | | - LABORATORY | | | | + + + + + EGD (11/15/2013 2:09 PM PDT) + + | Specimen | + + | | + + + + --+ | Narrative | Performed A t | + + --+ | | [facility] | | GastroenterologyPatient Name: Soumya Sydney Date: 11/15/2013 2:09 | PROVATION | | PMMRN: [id number] #: [id number] of : [id number] | | | Type: InpatientAge: 78Room: [facility] 01Gender: FemaleNote Status: | | [...] the nurse | | | and the weatherseal technician in the 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 Mental Status [...] On: 11/15/2013 2:09 PM | | | [facility], [address] [place] [address] | | | [place] [address] | | | - Normal duodenal bulb, [...] On: 11/15/2013 2:09 PM | | | [facility], [facility] [place], [place] | | | [address] | | + + --+ + + [...] + | [facility] | [address] | [place] | [phone] | | [facility] | | [address] | | | - LABORATORY | | | | + + + + + | [facility] | [address] | [place] | | | [facility] | | [address] | | | - LABORATORY | | [...] mL/min/1.73m2 | [facility] | | | CYMRO | RATE,ESTIMATED | | MEDICAL | | | | mL/min/1.78k9Tzzj than | | CENTER - | | [...] [address] | [place] | [phone] | | [facility] | | [address] | | | - LABORATORY | | | | + + + + + | [facility] | [address] | [place] | | | [facility] | | [address] | | | - LABORATORY | | [...] + | [facility] | [address] | [place], [place] | [phone] | | [facility] | | [address] | | | - LABORATORY | | | | + + + + + | [facility] | [address] | [place], [place] | | | [facility] | | [address] | | | - LABORATORY | | [...] + | [facility] | [address] | [place] | [phone] | | [facility] | | [address] | | | - LABORATORY | | | | + + + + + | [facility] | [address] | [place] | | | [facility] | | [address] | | | - LABORATORY | | [...] | [place] | | | [facility] | | [address] | | | - BLOOD BANK | [...] | | | FILTRATION | mL/min/1.73m2 | [facility] | | | CYMRO | RATE,ESTIMATED | | MEDICAL | | | | mL/min/1.11p9Lcot than | | CENTER - | | [...] [address] | [place] | [phone] | | [facility] | | [address] | | | - LABORATORY | | | | + + + + + | [facility] | [address] | [place] | | | [facility] | | [address] | | | - LABORATORY | | [...] + | [facility] | [address] | [place], [place] | [phone] | | [facility] | | [address] | | | - LABORATORY | | | | + + + + + | [facility] | [address] | [place], [place] | | | [facility] | | [address] | | | - LABORATORY | | | | + + + + + ED INFORMATION EXCHANGE (11/14/2013 10:23 AM PDT) + + | Specimen | + + | | + + + + + | Narrative | Performed At | + + + | VISIT TRACKING (3 MO.) Visit Date Location | [facility] | | Type Diagnoses | | | -------- | | | ---- 11/14/2013 10:22 [place] | | | [facility] Emergency black stool; 11/03/2013 | | | 07:39 [facility] Emergency Back | | | Pain; | [...] type, unspecified; 09/20/2013 00:12 | | | [facility] Emergency Thoracic or | | | lumbosacral neuritis or radiculitis, unspecified; | | | | | | Flank Pain; | | | | | | back/side pain; 09/15/2013 09:18 [facility] | [place] [facility] Sprain of thoracic; | | | | | | Upper Back Pain; | | | | | | Back Pain; VISIT COUNT (1 YR.) Visits Medicaid [place] Dx | | | Location ------ --------- 4 0 | | | [facility] 4 | | | 0 Total Note: Visits indicate total | | | known visits. Medicaid [place] Dx are the number of primary diagnoses on | | | the [facility]'s non-emergent dx list. | | | | | | --- FATIMAH has no Care Guidelines for this patient. [...] | | +---+---+ + +-------+ +---------+---+---+ | dapcxflo-amgmqcirei-iqkajetwcp | Given | 11/16/19 | 1 spray [...] | | | | | Intravenous, ONCE, [place] 11/14/13 at | | PM PDT | [...]
--- OUTSIDE RECORDS SUMMARY | ~2019-04-12 | XMS | Encounter Summary ---
Demographics + + + | Address | [address] | | | [place] [address] | + + + | Home Phone [...] + | Author | [facility] | | | and [place] | + + + | Organization | [facility] | | | and [...] | | | | | [place] [address] | | + + + + + | Hunter Jackson | ECON | [place] | | + + + + + | Wes Jackson | ECON | [place], [place] | | + + + + + | Oziel Jackson | ECON | [place], [place] | | + + + + + Care Team Providers + +------+ + | Care Freight Weigher Name | Role | Phone | + [...] + | 12/29/ | Office | [facility] | Rodolfo Cruz, | Hypothyroidism | | 2013 | Visit | [facility] [place] | [address] | (Primary Dx); | | | | [address] | [place], [place] | Bronchitis; | | | | [place] | [address] | Osteoarthritis; | | | | [address] | | Hypertension; TIA; | | | | [phone] | | Hyperlipidemia; | | | | [...] is no ear pain. She went to [place]. 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
--- OUTSIDE RECORDS SUMMARY | ~2019-04-12 | XMS | Encounter Summary ---
Demographics + + + | Address | [address] | | | [place] [address] | + + + | Home Phone [...] Author | [facility] | | | and [place] | + + + | Organization | [facility] | | | and [...] | | | | | [place] [address] | | + + + + + | Hunter Jackson | ECON | [place] | | + + + + + | Wes Jackson | ECON | [place], [place] | | + + + + + | Oziel Jackson | ECON | [place], [place] | | + + + + + Care Team Providers + +------+ + | Care Public Health Doctor Name | Role | Phone | + [...] Pulmonary | Rodolfo Reilly MD | [address] | | | | | nodules | [address] | [place], | | | | | Procedures | [address] [place] | [place] [address] | | | | | CT Chest w | [place], [place] | Phone: | | | | | Contrast | [address] | [phone] | | | | | | Phone: | Fax: | | | | | | [phone] | [phone] | | | | | | Fax: | | | | | | | [phone] | | +--------+--------+ + + + + Reason for Visit + + + | Reason | Comments | + + + | Results | Discuss CT | + + + | Back Pain | continues | + + + Encounter Details +--------+---------+ + + + | Date | Type | Department | Care Team | Description | +--------+---------+ + + + | 03/03/ | Office | [facility] | Rodolfo Cruz, | Thoracic back pain | | 2013 | Visit | MEDICINE [facility] | [address] | (Primary Dx); | | | | [address] [place] | [place] [address] | Pulmonary nodules; | | | | [place] [address] | [address] | Anemia; Bone fibrous | | | | [phone] | | dysplasia | +--------+---------+ + + + Social History [...] + + + | Blood Pressure | 120/74 | 03/03/2014 9:50 AM | | | | | PDT | | + + + + + | Pulse | 57 | 03/03/2014 9:50 AM | | | | | PDT | | + + + + + | Temperature | 36.6 C (97.8 F) | 03/03/2014 9:50 AM | | | | | PDT | | + + + + + | Respiratory Rate | 16 | 03/03/2014 9:50 AM | | | | | PDT | | + + + + + | Oxygen Saturation | 97% | 03/03/2014 9:50 AM | | | | | PDT | | + + + + + | Inhaled Oxygen | - | - | | | Concentration | | | | + + + + + | Weight | 86.2 kg (190 lb) | 03/03/2014 9:50 AM | | | | | PDT | | + + + + + | Height | 167.6 cm (5' 6") | 03/03/2014 9:50 AM | | | | | PDT | | + + + + + | Body Mass Index | 30.67 | 03/03/2014 9:50 AM | | | | | PDT | | + + + + + documented in this encounter Progress Notes Rodolfo Cruz MD - 03/03/2014 10:16 AM PDTFormatting of this note might be different f rom the original. Subjective: Patient ID: Soumya Jackson is a 78 y.o. female. HPI Pulmonary Nodules, Followed by CT, There is no Chronic cough, Mild SOB with run on sente nces. Recent GI bleed. Some weakness, No recent bloody or black stools. She is now on iron. She was subsequently hosp and transfused. She is no longer having any bloody or black stoo ls. She is not longer taking her voltaren. Thoracic pain. Her radiating back pain which started in September is now resolved. She still ge ts an occasional once a day twinge in the central upper pain, Sporadic with sleeping, She i s not sure what brings it on. She takes one hydrocodone per day at night for this. 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 Thoracic back pain 2. Pulmonary nodules 3. Anemia 4. Bone fibrous dysplasia Plan: RTC 3 months, Repeat CT in 6 months. Otherwise continue current medical regimen. documented [...] STREETER | | | | | | [id number] | | | | | | | | +--------+---------+ + + + | 11/21/ | Office | Cardiology | Yesi, | | | 2020 | Visit | | JOSE ALBERTO Linder [address] | | | | | | [place], | | | | | | [place] [address] | | | | | | [phone] | | | | | | | | +--------+---------+ + + + documented as of this encounter Results CT Chest w Contrast (08/18/2014 1:02 PM PDT) + + | Specimen | + + | | + + + + + | Narrative | Performed At | + + + | CT CHEST W CONTRAST . 08/18/2014 12:56 PM HISTORY: pain . | [facility] | | Pulmonary nodules COMPARISON: CT chest 02/22/2014, CT chest | [facility] | | abdomen pelvis 11/09/2013 TECHNIQUE: Axial images were obtained from | [facility] | | the base of the neck to the upper abdomen following the uneventful | - IMAGING | | intravenous administration of 70 mL Omnipaque 350 contrast. | | | Multiplanar reformatted images created. RADIATION DOSE: DLP 141 | | | mGy-cm FINDINGS: The structures at the base of the neck are | | | unremarkable. No pathologically enlarged mediastinal lymph nodes are | | | evident. Small hiatal hernia. Esophagus is unremarkable. The | | | trachea is within normal limits. Calcification is seen in the aorta | | | and branching vessels, which are otherwise unremarkable. The | | | pulmonary arterial structures are within normal limits. There is | | | coronary artery calcification. The heart is otherwise within normal | | | limits, without pericardial effusion. Pulmonary nodules are as | | | follows: Right lung: Right lung apex, series 4, image 9, measuring 4 | | | mm, stable. Right upper lobe, image 23, measuring 5 mm, slightly | | | decreased as compared with 02/22/2014 when it was first discovered. | | | Along the right minor fissure, image 51, measuring 7 mm, stable. | | | Along the right major fissure, image 50, measuring 5 mm, not | | | substantially changed as compared with 02/22/2014 given differences | | | in technique. Right lower lobe, image 54, measuring 5 mm, stable. | | | Right middle lobe, image 72, measuring 6 mm, stable. Right posterior | | | costophrenic sulcus, image 88, measuring 6 mm, stable. Left lung: | | | Along the left major fissure, image 44, measuring 3 mm, stable. | | | Along the left major fissure, series 4, image 56, measuring 5 mm, | | | stable to slightly increased., Although within limits for variation | | | in technique. Along the left major fissure, image 58, measuring 3 | | | mm, stable to slightly decreased. Along the major fissure, image 64, | | | measuring 8 mm, not substantially changed given differences in | | | technique. Posteriorly in the left lower lobe, image 80, measuring 4 | | | mm, stable. Laterally at the left lung base along the costophrenic | | | angle, image 84, measuring 4 mm, not substantially changed given | | | differences in technique. There is mild atelectasis at the lung | | | bases in the dependent portions. No pleural effusion or pneumothorax | | | is seen. The visualized upper abdominal viscera are unremarkable. | | | Sclerotic change again seen in the subarticular left humeral head, | | | similar to previous, without evidence of asphericity. Previously | | | described subtle lucency seen centrally in the sternal manubrium is | | | stable as compared with 11/09/2013. No new lytic or blastic lesion is | | | evident. Diffuse degenerative disc disease. Schmorl's nodes again | | | seen at T8 and T12. The muscles and subcutaneous soft tissues | | | are unremarkable. IMPRESSION - Pulmonary nodules as described | | | above, unchanged as compared with 02/22/2014. Continued surveillance | | | is recommended in approximately six months from today's date (12 | | | months from the date of discovery of one of the nodules on | | | 02/22/2014), then again if the nodules remain stable in 18 months | | | from today's date (24 months from the date of original discovery). | | | Stable asymmetric sclerotic change in the left humeral head and subtle | | | lucent zone in the sternal manubrium. Dictated and Signed | | | by: Gaurav Masters MD Electronically signed: 08/19/2014 8:13 AM | | | | | + + + + + | Procedure Note | + + | Rem[place], Rad Results In - 08/19/2014 8:[address] CHEST W CONTRAST . 08/18/2014 12:56 | | PM HISTORY: pain . Pulmonary nodules COMPARISON: CT chest 02/22/2014, CT chest | | abdomen pelvis 11/09/2013 TECHNIQUE: Axial images were obtained from the base of the neck | | to the upperabdomen following the uneventful intravenous administration of 70 mL | | [id number] contrast. Multiplanar reformatted images created.RADIATION DOSE: DLP | | 141 mGy-cmFINDINGS: The structures at the base of the neck are unremarkable.No | | pathologically enlarged mediastinal lymph nodes are evident.Small hiatal hernia. | | Esophagus is unremarkable.The trachea is within normal limits.Calcification is seen in | | the aorta and branching vessels, which are otherwiseunremarkable.The pulmonary arterial | | structures are within normal limits.There is coronary artery calcification. The heart | | is otherwise within normallimits, without pericardial effusion.Pulmonary nodules are as | | follows:Right lung:Right lung apex, series 4, image 9, measuring 4 mm, stable.Right | | upper lobe, image 23, measuring 5 mm, slightly decreased as compared with02/22/2014 when | | it was first discovered.Along the right minor fissure, image 51, measuring 7 mm, | | stable.Along the right major fissure, image 50, measuring 5 mm, not substantiallychanged | | as compared with 02/22/2014 given differences in technique.Right lower lobe, image 54, | | measuring 5 mm, stable.Right middle lobe, image 72, measuring 6 mm, stable.Right | | posterior costophrenic sulcus, image 88, measuring 6 mm, stable.Left lung:Along the left | | major fissure, image 44, measuring 3 mm, stable.Along the left major fissure, series 4, | | image 56, measuring 5 mm, stable toslightly increased., Although within limits for | | variation in technique.Along the left major fissure, image 58, measuring 3 mm, stable to | | slightlydecreased.Along the major fissure, image 64, measuring 8 mm, not substantially | | changedgiven differences in technique.Posteriorly in the left lower lobe, image 80, | | measuring 4 mm, stable.Laterally at the left lung base along the costophrenic angle, | | image 84,measuring 4 mm, not substantially changed given differences in technique.There | | is mild atelectasis at the lung bases in the dependent portions.No pleural effusion or | | pneumothorax is seen.The visualized upper abdominal viscera are unremarkable.Sclerotic | | change again seen in the subarticular left humeral head, similar toprevious, without | | evidence of asphericity. Previously described subtle lucencyseen centrally in the | | sternal manubrium is stable as compared with 11/09/2013. Nonew lytic or blastic lesion is | | evident. Diffuse degenerative disc disease. Schmorl's nodes again seen at T8 and T12. | | The muscles and subcutaneous soft tissues are unremarkable. IMPRESSION - Pulmonary | | nodules as described above, unchanged as compared with 02/22/2014.Continued surveillance | | is recommended in approximately six months from today'sdate (12 months from the date of | | discovery of one of the nodules on 02/22/2014),then again if the nodules remain stable | | in 18 months from today's date (24months from the date of original discovery).Stable | | asymmetric sclerotic change in the left humeral head and subtle lucentzone in the | | sternal manubrium. Dictated and Signed by: Gaurav Masters MD Electronically signed: | | 08/19/2014 8:13 AM | |decreased. | |Along the major fissure, image 64, measuring 8 mm, not substantially changed | |given differences in technique. | |Posteriorly in the left lower lobe, image 80, measuring 4 mm, stable. | |Laterally at the left lung base along the costophrenic angle, image 84, | |measuring 4 mm, not substantially changed given differences in technique. | | | |There is mild atelectasis at the lung bases in the dependent portions. | |No pleural effusion or pneumothorax is seen. | | | |The visualized upper abdominal viscera are unremarkable. | |Sclerotic change again seen in the subarticular left humeral head, similar to | |previous, without evidence of asphericity. Previously described subtle lucency | |seen centrally in the sternal manubrium is stable as compared with 11/09/2013. No | |new lytic or blastic lesion is evident. Diffuse degenerative disc disease. | |Schmorl's nodes again seen at T8 and T12. | | | |The muscles and subcutaneous soft tissues are unremarkable. | | | | | |IMPRESSION - | |Pulmonary nodules as described above, unchanged as compared with 02/22/2014. | |Continued surveillance is recommended in approximately six months from today's | |date (12 months from the date of discovery of one of the nodules on 02/22/2014), | |then again if the nodules remain stable in 18 months from today's date (24 | |months from the date of original discovery). | |Stable asymmetric sclerotic change in the left humeral head and subtle lucent | |zone in the sternal manubrium. | | | | | |Dictated and Signed by: Gaurav Masters MD | | Electronically signed: 08/19/2014 8:13 AM | + + + + + + + | Performing | Address | City/State/Zipcode | Phone Number | | Organization | | | | + + + + + | [facility] [address] | [address] | [place] | [phone] | | [facility] | | [address] | | | - IMAGING | | | | + + + + + documented in this encounter Visit Diagnoses + + | Diagnosis | + + | Thoracic back pain - Primary Pain in thoracic spine | + + | Pulmonary nodules Other nonspecific abnormal finding of lung field | + + | Anemia Anemia, unspecified | + + | Bone fibrous dysplasia Other cyst of bone | + + documented in this encounter
--- OUTSIDE RECORDS SUMMARY | ~2019-04-12 | XMS | Encounter Summary ---
Demographics + + + | Address | [address] | | | [place] [address] | + + + | Home Phone [...] [facility] | | | and [place] | + + + | Organization | [facility] | | | [...] [place] | | | | | [place] [address] | | + + + + + | Hunter Jackson | ECON | [place] | | + + + + + | Wes Jackson | ECON | [place], [place] | | + + + + + | Oziel Jackson | ECON | [place], [place] | | + + + + + Care Team Providers + +------+ + | Care Loan Adviser Name | Role | Phone | + +------+ + | Gunderson, Kellie PA | PCP | | + +------+ + Reason for Visit + + + | Reason | Comments | + + + | Follow-up | Follow up right shoulder and Right CMC injection last injections | | | 04/28/2017 | + + + | Injections | | + + + Encounter Details +--------+---------+ + + + | Date | Type | Department | Care Team | Description | +--------+---------+ + + + | 07/17/ | Office | [facility] | Ulysses Jensen, | Arthritis of | | 2018 | Visit | ORTHOPEDIC SURGERY | [address] | carpometacarpal | | | | [address] [place] [address] | [place], [place] | (CMC) joint of right | | | | [place], [place] | [address] | thumb (Primary Dx); | | | | [address] | | Rotator cuff tear | | | | [phone] | | arthropathy of right | | [...] Weight | 81.2 kg (179 lb) | 07/17/2017 10:45 AM | | | | | PST | | + + + + + | Height | 165.1 cm (5' 5") | 07/17/2017 10:45 AM | | | | | PST | | + + + + + | Body Mass Index | 29.79 | 07/17/2017 10:45 AM | | | | | PST | | + + + + + documented in this encounter Progress Notes Ulysses Jensen MD - 07/17/2017 10:45 AM PSTPatient returns for right shoulder subacromial injection and right first cmc injection Under sterile conditions today I injected right shoulder subacromial space with kenalog 40m g and 3cc naropin I then injected her right first cmc joint under sterile conditions with celestone 1/2cc and 1/2cc naropin She will return as needed documented [...] | | | | | | [place] [address] | | | | | | [phone] | | | | | | | [...] + | betamethasone (CELESTONE | Given | 07/18/19 | 6 mg | | Other | | SOLUSPAN) injection 6 mg 6 mg, | | 18 10:58 | | | (Comment | | Other, EVERY 24 HOURS INTERVAL, | | AM PST | | | ) | | First dose on Roxy 07/17/17 at 1115, | | | | | | | For 2 doses, Shake well. Not for | | | | | | | IV use., | | | | | | + +--------+ +------+------+ + +---+---+ | | | +---+---+ + +-------+ +-------+---+ + | triamcinolone acetonide | Given | 07/18/19 | 40 mg | | Shoulder | | (KENALOG-40) 40 mg/mL injection | | 18 10:59 | | | -Right | | 40 mg 40 mg, Other, ONCE, Roxy | | AM PST | | | | | 07/17/17 at 1115, For 1 dose, Shake | | | | | | | well. Not for IV use., | | | | | | + +-------+ +-------+---+ + +---+---+ | | | +---+---+ documented in this encounter
--- OUTSIDE RECORDS SUMMARY | ~2019-04-12 | XMS | Encounter Summary ---
Demographics + + + | Address | [address] | | | [place] [address] | + + + | Home Phone [...] | Author | [facility] | | | and [place] | + + + | Organization | [facility] | | | and [...] | | | | | [place] [address] | | + + + + + | Hunter Jackson | ECON | [place] | | + + + + + | Wes Jackson | ECON | [place], [place] | | + + + + + | Oziel Jackson | ECON | [place], [place] | | + + + + + Care Team Providers + +------+ + | Care Sand Molder Name | Role | Phone | + +------+ + | Rodolfo Cruz MD | PCP | | + +------+ + Reason for Visit + + + | Reason | Comments | + + + | Follow-up | 3 month. In ER for parestesia | + + + | Numbness | to fingers. Intermittent numbness to left side of face since 2009 | | | | + + + Encounter Details +--------+---------+ + + + | Date | Type | Department | Care Team | Description | +--------+---------+ + + + | 01/31/ | Office | [facility] | Rodolfo Cruz, | Insomnia (Primary | | 2015 | Visit | MEDICINE [address] | [address] | Dx); Neuropathy; | | | | [address] [place] | [place], [place] | Fatigue; Tinea | | | | [place] [address] | [phone] | corporis; | | | | [phone] | | Generalized anxiety | | | | | | disorder; Primary | | | | | | osteoarthritis | | | | | | involving multiple | | | | | | joints | +--------+---------+ + + + Social History [...] + + + | Blood Pressure | 170/72 | 01/31/2015 1:03 PM | | | | | PDT | | + + + + + | Pulse | 55 | 01/31/2015 1:03 PM | | | | | PDT | | + + + + + | Temperature | 37.1 C (98.7 F) | 01/31/2015 1:03 PM | | | | | PDT | | + + + + + | Respiratory Rate | 16 | 01/31/2015 1:03 PM | | | | | PDT | | + + + + + | Oxygen Saturation | 98% | 01/31/2015 1:03 PM | | | | | PDT | | + + + + + | Inhaled Oxygen | - | - | | | Concentration | | | | + + + + + | Weight | 82.3 kg (181 lb 6.4 | 01/31/2015 1:03 PM | | | | oz) | PDT | | + + + + + | Height | 162.6 cm (5' 4") | 01/31/2015 1:03 PM | | | | | PDT | | + + + + + | Body Mass Index | 31.14 | 01/31/2015 1:03 PM | | | | | PDT | | + + + + + documented in this encounter Progress Notes Rdoolfo Cruz MD - 01/31/2015 1:18 PM PDTFormatting of this note might be different f rom the original. Subjective: Patient ID: Soumya Jackson is a 79 y.o. female. HPI Back tingling with itching in the back started last Friday in [facility]. She ran for the [place], Went home, the symptoms persisted and her friend advised her to go to the ER. This left whole thing started with left ankle after sitting in the car for a short period. Then yesterday she started having numbness In her left 4,5 fingers after sleeping. The left an kle has resolved. The back tingling has been coming and going. Ring worm improved with tinactin the last 4-5 days. Since last November her body has "fallen apart". Hypothyroidism, She is on thyroid medication. She is compliant with the dosing. Depression with Anxiety, She is only taking half a lexparo. A whole pill made her feel go ofy. Her friend says thought that she has in general been miserable as of late. She had a nervous breakdown in the 60's, At that time her had a breakdown first. She then learned how to accomodate for this following this experience. 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 2 cm Assessment: 1. Insomnia eszopiclone (LUNESTA) 2 MG TABS 2. Neuropathy 3. Fatigue 4. Tinea corporis 5. Generalized anxiety disorder Plan: Continue tinactin. Increase the lexapro to 10mg daily. 25min was spent with the patient o f which greater than 50% was spending in counseling regarding above. RTC 6 weeks. Otherwise continue current medical regimen. documented in [...] | | | | | | [place] [address] | | | | | | [phone] | | | | | | | | +--------+---------+ + + + documented as of this encounter Visit Diagnoses + + | Diagnosis | + + | Insomnia - Primary Insomnia, unspecified | + + | Neuropathy Mononeuritis of unspecified site | + + | Fatigue Other malaise and fatigue | + + | Tinea corporis Dermatophytosis of the body | + + | Generalized anxiety disorder | + + | Primary osteoarthritis involving multiple joints | + + documented in this encounter
--- OUTSIDE RECORDS SUMMARY | ~2019-04-12 | XMS | Encounter Summary ---
Demographics + + + | Address | [address] | | | [place] [address] | + + + | Home Phone [...] Author | [facility] | | | and [place] | + + + | Organization | [facility] | | | and [place] | + + + | Address | Unknown | + + + | Phone | Unavailable | + + + Support + + + + + | Name | Relationship | Address | Phone | + + + + + | Osmin Jackson | ECON | [address] | | | | | [place] [address] | | + + + + + | Hunter Jackson | ECON | [place] | | + + + + + | Wes Jackson | ECON | [place], [place] | | + + + + + | Oziel Jackson | ECON | [place], [place] | | + + + + + Care Team Providers + +------+ + | Care Cardiology Tech Name | Role | Phone | [...] | (Screening) (log | | | | [place], | [place], | from 06/23/15 till | | | | [place] [address] | [place] [address] | 07/07/15) | | | | [phone] | [phone] | | | | | | | [...] [address] | | | | | | [address] | | | | | | | | +--------+---------+ + + + | 11/21/ | Office | Cardiology | Yesi, | | | 2020 | Visit | | JOSE ALBERTO Linder [address] | | | | | | [place], | | | | | | [place] [address] | | | | | | [phone] | | | | | | | | +--------+---------+ + + + documented as of this encounter Visit Diagnoses Not on filedocumented in this encounter"
--- OUTSIDE RECORDS SUMMARY | ~2019-04-12 | XMS | Encounter Summary ---
Demographics + + + | Address | [address] | | | [place] [address] | + + + | Home Phone [...] | Author | [facility] | | | and [place] | + + + | Organization | [facility] [...] | | | | | [place] [address] | | + + + + + | Hunter Jackson | ECON | [place] | | + + + + + | Wes Jackson | ECON | [place], [place] | | + + + + + | Oziel Jackson | ECON | [place], [place] | | + + + + + Care Team Providers + +------+ + | Care Agricultural Adviser Name | Role | Phone | [...] | | | pain, right | | [address] [place] | | | | | upper | | [place], [place] | | | | | quadrant | | [address] | | | | | Back pain | | Phone: | | | | | Hyperlipidem | | [phone] | | | | | ia Upper GI | | Fax: | | | | | bleeding | | [phone] | | | | | Hypothyroidi | [...] Description | +--------+---------+ + + + | 11/15/ | Surgery | [facility] | Lauri Garrison MD | EGD * IP RM: [id number] * | | 2013 | | MED CTR MP INTRA OP | [address], [place] | | | | | [address] | [address] [place] [address] | | | | | [place] | [id number] | | | | | [address] | | | | | | [phone] | | | +--------+---------+ + + + [...] might be different f rom the original. [facility] Service: Hospitalist Physician Discharge Summary Pt: Soumya Jackson AGE/SEX: 78 y.o. female ROOM: [address] [place] [address] PCP: Rodolfo Cruz : 1935 Admit date: [...] upper GI bleed(duodenal ulcers) leading to ac [place] blood loss anemia. She is status post [...] are the prescriptions that you need to filler picker. You may get these medications from [...] might be different f rom the original. [facility] Service: Hospitalist Progress Note Pt: Soumya Jackson AGE/SEX: 78 y.o. female ROOM: 428/428-01 : 1935 PCP: Rodolfo Cruz ADMIT DATE: 11/14/2013 TODAY'S DATE: 11/16/2013 Hospital Day/Hospital Course: LOS: 2 days 78 years old female past medical history of hypothyroidism, benign hypertension, hyperlipid kirti came to the hospital with weakness due to upper GI bleed(duodenal ulcers) leading to ac [place] blood loss anemia. She is status post [...] mg/hr (11/16/13 0651) PRN Medications albuterol, [COMPLETED] wlfmjpge-oxlxfujera-gmstmlavmq, diphenhydrAMINE, HYDROcodone-acetami nophen, HYDROmorphone, LORazepam, [COMPLETED] meperidine, [...] upper GI bleed(duodenal ulcers) leading to ac [place] blood loss anemia. She is status post [...] PM PDT HOSPITALIST PROGRESS NOTE on 11/15/2013 [facility] Pt. Name/Age/: Soumya Jackson 78 y.o. 1935 Med. Record Number: [id number] Primary Care Physician: Rodolfo Cruz Date of [...] the patient was seen and examined. Sh e feels fine. Actually hungry. No stool since [...] -- No results found for this basename: PHART:3,PO2ART:3,BLW7ENJ:3,G4RLREJE:3,BEART:[address] 168 hours No [...] Once pantoprazole (PROTONIX) infusion 8 mg/hr (11/15/13 2706) albuterol, diphenhydrAMINE, HYDROcodone-acetaminophen, HYDROmorphone, LORazepam, ondansetr on, ondansetron DVT Prophylaxis Contraindicated CMS Documentation I expect this patient will be hospitalized for greater than 2-midnights and expect the post -hospital plan to be discharge to home or to an adult foster home. Electronically signed by: Peng Godinez MD, 11/15/2013 12:08 [facility] Portions of this chart may have been created withZenytime voice recognition software. Occas ional wrong-word or [...] [place] | | | | | | [id number] | | | | | | | | +--------+---------+ + + + | 11/21/ | Office | Cardiology | Yesi, | | | 2019 | Visit | | JOSE ALBERTO Linder [address] | | | | | | [address] [place], | | | | | | [place] [address] | | | | | | [phone] | | | | | | | [...] | | | Code | | | [facility] | | | | | | MEDICAL | | | | | | CENTER - | | | | | | BLOOD BANK | | + + + + + + | UNIT # | [id number] | | [facility] | | | | [...] | Unit Status | Returned | | [facility] | | | | | | [facility] [...] [place] | | | [facility] | | [address] | | | - BLOOD BANK | [...] + + + | UNIT # | [id number] | | [facility] | | | | [...] ST. | [address] | [place] | | | [facility] | | [address] | | | - BLOOD BANK | [...] | | Neutrophils | | K/uL | [facility] | | | | [...] + | [facility] | [address] | [place], [place] | [phone] | | [facility] | | [address] | | | - LABORATORY | | | | + + + + + | [facility] | [address] | [place], [place] | | | [facility] | | [address] | | | - LABORATORY | | [...] 7 | 7 - 18 mg/dL | [facility] | | | | | | [facility] | | | | | | MEDICAL | | | | | | CENTER - | | | | | | LABORATORY | | + + + + + + | Creatinine | 0.74 | 0.60 - 1.30 | [facility] | | | | | mg/dL | [facility] | | | | | | MEDICAL | | | | | | CENTER - | | | | | | LABORATORY | | + + + + + + | eGFR if not | >60Comment: GLOMERULAR | >=60 | [facility] | | | | FILTRATION | mL/min/1.73m2 | [facility] | | | SWISS | RATE,ESTIMATED | | MEDICAL | | | | mL/min/1.23e8Wlky than | | CENTER - | | [...] + | [facility] | [address] | [place] | [phone] | | [facility] | | [address] | | | - LABORATORY | | | | + + + + + | [facility] | [address] | [place] | | | [facility] | | [address] | | | - LABORATORY | | [...] [address] | [place] | [phone] | | [facility] | | [address] | | | - LABORATORY | | | | + + + + + | [facility] | [address] | [place] | | | [facility] | | [address] | | | - LABORATORY | | [...] | | | | | | [facility] | | | | | [...] | MPV | 8.7 | fL | [facility] | | | [...] [address] | [place] | [phone] | | [facility] | | [address] | | | - LABORATORY | | | | + + + + + | [facility] | [address] | [place] | | | [facility] | | [address] | | | - LABORATORY | | [...] (H) | 4.0 - 11.0 K/uL | [facility] | | | | | [...] | MPV | 9.1 | fL | [facility] | | | [...] + | [facility] | [address] | [place] | [phone] | | [facility] | | [address] | | | - LABORATORY | | | | + + + + + | [facility] | [address] | [place] | | | [facility] | | [address] | | | - LABORATORY | | [...] | MPV | 9.4 | fL | [facility] | | | [...] + | [facility] | [address] | [place], [place] | [phone] | | [facility] | | [address] | | | - LABORATORY | | | | + + + + + | [facility] | [address] | [place], [place] | | | [facility] | | [address] | | | - LABORATORY | | [...] 10 | 7 - 18 mg/dL | [facility] | | | | | | [facility] | | | | | | MEDICAL | | | | | | CENTER - | | | | | | LABORATORY | | + + + + + + | Creatinine | 0.60 | 0.60 - 1.30 | [facility] | | | | | mg/dL | [facility] | | | | | | MEDICAL | | | | | | CENTER - | | | | | | LABORATORY | | + + + + + + | eGFR if not | >60Comment: GLOMERULAR | >=60 | [facility] | | | | FILTRATION | mL/min/1.73m2 | [facility] | | | SWISS | RATE,ESTIMATED | | MEDICAL | | | | mL/min/1.51g1Sagn than | | CENTER - | | [...] | | | | mg/dL | [facility] | | | | [...] + | [facility] | [address] | [place] | [phone] | | [facility] | | [address] | | | - LABORATORY | | | | + + + + + | [facility] | [address] | [place] | | | [facility] | | [address] | | | - LABORATORY | | [...] + | [facility] | [address] | [place] | [phone] | | [facility] | | [address] | | | - LABORATORY | | | | + + + + + | [facility] | [address] | [place] | | | [facility] | | [address] | | | - LABORATORY | | [...] + | [facility] | [address] | [place], [place] | [phone] | | [facility] | | [address] | | | - LABORATORY | | | | + + + + + | [facility] | [address] | [place], [place] | | | [facility] | | [address] | | | - LABORATORY | | | | + + + + + EGD (11/15/2013 2:09 PM PDT) + + | Specimen | + + | | + + + + --+ | Narrative | Performed A t | + + --+ | | [facility] | | GastroenterologyPatient Name: Soumya Vazcedure Date: 11/15/2013 2:09 | PROVATION | | PMMRN: [id number] #: [id number] of : 8Admit | | | Type: InpatientAge: 78Room: [facility] 01Gender: FemaleNote Status: | | | FinalizedAttending MD: Lauri Garrison, [facility]ENTERrocedure: Upper | | | GI endoscopyIndications: Acute post hemorrhagic anemia, | | | MelenaProviders: Lauri Garrison MD, Judy Green RN, | | | Rachael Cabello RN, Macy [...] the nurse | | | and the neon technician in the 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 Mental Status [...] On: 11/15/2013 2:09 PM | | | [facility] | | | [place] [address] | | | - Normal duodenal bulb, [...] On: 11/15/2013 2:09 PM | | | [facility] [place], [place] | | | [address] | | + + --+ + + [...] | MPV | 9.2 | fL | [facility] | | | [...] [address] | [place] | [phone] | | [facility] | | [address] | | | - LABORATORY | | | | + + + + + | [facility] | [address] | [place] | | | [facility] | | [address] | | | - LABORATORY | | [...] not | >60Comment: GLOMERULAR | >=60 | [facility] | | | | FILTRATION | mL/min/1.73m2 | [facility] | | | SWISS | RATE,ESTIMATED | | MEDICAL | | | | mL/min/1.53t5Vxyf than | | CENTER - | | [...] + | [facility] | [address] | [place] | [phone] | | [facility] | | [address] | | | - LABORATORY | | | | + + + + + | [facility] | [address] | [place] | | | [facility] | | [address] | | | - LABORATORY | | [...] + | [facility] | [address] | [place], [place] | [phone] | | [facility] | | [address] | | | - LABORATORY | | | | + + + + + | [facility] | [address] | [place], [place] | | | [facility] | | [address] | | | - LABORATORY | | [...] + | [facility] | [address] | [place] | [phone] | | [facility] | | [address] | | | - LABORATORY | | | | + + + + + | [facility] | [address] | [place], [place] | | | [facility] | | [address] | | | - LABORATORY | | [...] + | [facility] | [address] | [place] | | | [facility] | | [address] | | | - BLOOD BANK | [...] | | | | | | [facility] | | | | | | MEDICAL [...] mL/min/1.73m2 | [facility] | | | SWISS | RATE,ESTIMATED | | MEDICAL | | | | mL/min/1.07s9Ctjh than | | CENTER - | | [...] + | [facility] | [address] | [place], [place] | [phone] | | [facility] | | [address] | | | - LABORATORY | | | | + + + + + | [facility] | [address] | [place], [place] | | | [facility] | | [address] | | | - LABORATORY | | [...] + | [facility] | [address] | [place] | [phone] | | [facility] | | [address] | | | - LABORATORY | | | | + + + + + | [facility] | [address] | [place], [place] | | | [facility] | | [address] | | | - LABORATORY | | | | + + + + + ED INFORMATION EXCHANGE (11/14/2013 10:23 AM PDT) + + | Specimen | + + | | + + + + + | Narrative | Performed At | + + + | VISIT TRACKING (3 MO.) Visit Date Location | [facility] | | Type Diagnoses | | | -------- | | | ---- 11/14/2013 10:22 [place] | | | [facility] Emergency black stool; 11/03/2013 | | | 07:39 [facility] Emergency Back | | | Pain; [...] type, unspecified; 09/20/2013 00:12 | | | [facility] Emergency Thoracic or | | | lumbosacral neuritis or radiculitis, unspecified; | | | | | | Flank Pain; | | | | | | back/side pain; 09/15/2013 09:18 [facility] | | | [place] Emergency Sprain of thoracic; | | | | | | Upper Back Pain; | | | | | | Back Pain; VISIT COUNT (1 YR.) Visits Medicaid [place] Dx | | | Location ------ --------- 4 0 | | | [facility] 4 | | | 0 Total Note: Visits indicate total | | | known visits. Medicaid [place] D[place] are the number of primary diagnoses on | | | the [facility]'s non-emergent dx list. | | [...]
--- OUTSIDE RECORDS SUMMARY | ~2019-04-12 | XMS | Encounter Summary ---
Demographics + + + | Address | [address] | | | [place] [address] | + + + | Home Phone | | + + + | Preferred Language | Unknown | + + + | Marital Status | | + + + | Church Affiliation | Unknown | + + + | Race | Unknown | + + + | Ethnic Group | Unknown | + + + Author + + + | Author | [facility] | | | and [place] | + + + | Organization | [facility] | | | and [place] | + + + | Address | Unknown | + + + | Phone | Unavailable | + + + Support + + + + + | Name | Relationship | Address | Phone | + + + + + | Osmin Jackson | ECON | [address] | | | | | [place] [address] | | + + + + + | Hunter Jackson | ECON | [place] | | + + + + + | Wes Jackson | ECON | [place], [place] | | + + + + + | Oziel Jackson | ECON | [place], [place] | | + + + + + Care Team Providers + +------+ + | Care Forestry Fire Aide Name | Role | Phone | + +------+ + | Gunderson, Kellie PA | PCP | | + +------+ + Reason for Visit +--------+ + | Reason | Comments | +--------+ + | Other | questions about test | +--------+ + Encounter Details +--------+ + + + + | Date | Type | Department | Care Team | Description | +--------+ + + + + | 10/14/ | Telephone | [facility] | Yesi, | Other (questions | | 2018 | | CARDIOLOGY [address] | JOSE ALBERTO Linder [address] | about test) | | | | [place], | [place], | | | | | [place] [address] | [place] [address] | | | | | [phone] | [phone] | | | | | | | [...] [address]REET[address] | | | | | | [address] | | | | | | | | +--------+---------+ + + + | 11/21/ | Office | Cardiology | Yesi, | | | 2019 | Visit | | JOSE ALBERTO Linder [address] | | | | | | [place] | | | | | | [place] [address] | | | | | | [phone] | | | | | | | | +--------+---------+ + + + documented as of this encounter Visit Diagnoses Not on filedocumented in this encounter"
--- OUTSIDE RECORDS SUMMARY | ~2019-04-12 | XMS | Encounter Summary ---
Demographics + + + | Address | [address] | | | [place] [address] | + + + | Home Phone [...] | [facility] | | | and [place] | + + + | Organization | [facility] | | [...] | | | | | [place] [address] | | + + + + + | Hunter Jackson | ECON | [place] | | + + + + + | Wes Jackson | ECON | [place], [place] | | + + + + + | Oziel Jackson | ECON | [place], [place] | | + + + + + Care Team Providers + +------+ + | Care Local Area Network Administrator Name | Role | Phone | [...] + + | 06/02/ | Office | [facility] | Rodolfo Cruz, | Multiple contusions | | 2013 | Visit | [facility] [place] | [address] | (Primary Dx); | | | | [address] | [place], [place] | Hyperlipidemia; | | | | [place], [place] | [address] | Hypertension; | | | | [address] | | Osteoarthritis; | | | | [phone] | | GERD; TIA; Asthma | | [...] female. HPI Recent visit to ER in [place] for a fall and multiple bruises. 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 | [place] | [phone] | | [facility] | | [address] | | | - LABORATORY | | | | + + + + + | [address] | [address] | [place] | | | [facility] | | [address] | | | - LABORATORY | | [...]
--- OUTSIDE RECORDS SUMMARY | ~2019-04-12 | XMS | Encounter Summary ---
Demographics + + + | Address | [address] | | | [place] [address] | + + + | Home Phone | | + + + | Preferred Language | Unknown | + + + | Marital Status | | + + + | Druze Affiliation | Unknown | + + + | Race | Unknown | + + + | Ethnic Group | Unknown | + + + Author + + + | Author | [facility] | | | and [place] | + + + | Organization | [facility] [...] | | | | | [place] [address] | | + + + + + | Hunter Jackson | ECON | [place] | | + + + + + | Wes Jackson | ECON | [place], [place] | | + + + + + | Oziel Jackson | ECON | [place], [place] | | + + + + + Care Team Providers + +------+ + | Care Director Wholesale Name | Role | Phone | + [...] Description | +--------+--------+ + + + | 01/25/ | Refill | [facility] | Rodolfo Cruz, | Medication Refill | | 2015 | | MEDICINE [address] | [address] | | | | | [place] | [place] | | | | | [place] [address] | [address] | | | | | [phone] | | | +--------+--------+ + + + [...] | 2019 | Visit | | MD [address] | | | | | | [place] | | | | | | [address] | | | | | | | | +--------+---------+ + + + | 11/21/ | Office | Cardiology | Yesi, | | | 2019 | Visit | | JOSE ALBERTO [address]inder [address] | | | | | | [place] | | | | | | [place] [address] | | | | | | [phone] | | | | | | | | +--------+---------+ + + + documented as of this encounter Visit Diagnoses Not on filedocumented in this encounter"
--- OUTSIDE RECORDS SUMMARY | ~2019-04-12 | XMS | Encounter Summary ---
Demographics + + + | Address | [address] | | | [place] [address] | + + + | Home Phone | | + + + | Preferred Language | Unknown | + + + | Marital Status | | + + + | Islam Affiliation | Unknown | + + + | Race | Unknown | + + + | Ethnic Group | Unknown | + + + Author + + + | Author | [facility] | | | and [place] | + + + | Organization | [facility] | | | and [...] | | | | | [place] [address] | | + + + + + | Hunter Jackson | ECON | [place] | | + + + + + | Wes Jackson | ECON | [place], [place] | | + + + + + | Oziel Jackson | ECON | [place], [place] | | + + + + + Care Team Providers + +------+ + | Care Pharmacy Technologist Name | Role | Phone | + [...] Chronic low | Yany, | [address] | | | | | back pain | [place], | [place], | | | | | DDD | PA-C [address] | [place] | | | | | (degenerativ | [address] | [address] | | | | | e disc | [place] | Phone: | | | | | disease), | [address] | [phone] | | | | | lumbar | Phone: | Fax: | | | | | Procedures | [phone] | [phone] | | | | | MRI Lumbar | Fax: | | | | | | Spine wo | [phone] | | | | | | Contrast [...] Chronic low | Yany, | [address] | | | | | back pain | [place], | [place], | | | | | DDD | PA-C [address] | [place] | | | | | (degenerativ | [address] | [address] | | | | | e disc | [place] | Phone: | | | | | disease), | [address] | [phone] | | | | | lumbar | Phone: | Fax: | | | | | Procedures | [phone] | [phone] | | | | | MRI Lumbar | Fax: | | | | | | Spine wo | [phone] | | | | | | Contrast | | | | | | | MRI | | | +--------+--------+ + + + + Encounter Details +--------+ + + + + | Date | Type | Department | Care Team | Description | +--------+ + + + + | 01/09/ | Hospital | [facility] | Yany, | Chronic low back | | 2015 | Encounter | MED CTR MRI [address] | [address] | pain; DDD | | | | [address] [place], | [facility], | (degenerative disc | | | | [place] [address] | [place] [address] | disease), lumbar | | | | [phone] | [phone] | | | | | | | [...] | | | | | | [place] [address] | | | | | | [phone] | | | | | | | | +--------+---------+ + + + documented as of this encounter Procedures + +--------+ + + + | Procedure Name | Priori | Date/Time | Associated Diagnosis | Comments | | | ty | | | | + +--------+ + + + | MRI LUMBAR SPINE WO | Routin | 01/09/2015 | Chronic low back | Results for this | | CONTRAST | e | 2:15 PM | pain DDD | procedure are in the | | | | PDT | (degenerative disc | results section. | | | | | disease), lumbar | | + +--------+ + + + documented in this encounter Results MRI Lumbar Spine wo Contrast (01/09/2015 2:15 PM PDT) + + | Specimen | + + | | + + + + + | Narrative | Performed At | + + + | MRI LUMBAR SPINE WITHOUT CONTRAST: 01/09/2015 1:55 PM CLINICAL | [facility] | | HISTORY: chronic low back pain, not responding to conservative | [facility] | | treatment COMPARISON: None TECHNIQUE: In the 1.5T scanner [facility] | | multiplanar, multisequence imaging of the [...] discussed above. Dictated and Signed by: William Mcfarlane MD Electronically signed: 01/09/2015 5:05 PM | | [...] + + | Performing | Address | City/State[facility] | Phone Number | | Organization | | | | + + + + + | [facility]. | [address] | [place] | [phone] | | [facility] | | [address] | | | - IMAGING | | [...]
--- OUTSIDE RECORDS SUMMARY | ~2019-04-12 | XMS | Encounter Summary ---
Demographics + + + | Address | [address] | | | [place] [address] | + + + | Home Phone [...] | Author | [facility] | | | and [place] | + + + | Organization | [facility] | [...] [place] | | | | | [place] [address] | | + + + + + | Hunter Jackson | ECON | [place] | | + + + + + | Wes Jackson | ECON | [place], [place] | | + + + + + | Oziel Jackson | ECON | [place], [place] | | + + + + + Care Team Providers + +------+ + | Care Security Rep Name | Role | Phone | + +------+ + | Gunderson, Kellie PA | PCP | | + +------+ + Reason for Referral Evaluate & Treat (Routine) +--------+--------+ + + + + | Status | Reason | Specialty | Diagnoses / | Referred By | Referred To | | | | | Procedures | Contact | Contact | +--------+--------+ + + + + | Denied | | Massage | Diagnoses | | | | | | Therapist | DDD | Yany, | | | | | | (degenerativ | Velvet, | | | | | | e disc | PA-C [address] | | | | | | disease), | [address] | | | | | | cervical | [place] | | | | | | [place] | [address] | | | | | | stenosis of | Phone: | | | | | | cervical | [phone] | | | | | | region | Fax: | | | | | | Stenosis of | [phone] | | | | | | cervical | | | | | | | spine | | | +--------+--------+ + + + + Reason for Visit + + + | Reason | Comments | + + + | Neck Pain | | + + + | Follow-up | MRI review | + + + Encounter Details +--------+---------+ + + + | Date | Type | Department | Care Team | Description | +--------+---------+ + + + | 08/19/ | Office | [facility] [place] | Gideondanowicz, | DDD (degenerative | | 2017 | Visit | PHYSIATRY [address] | ANN Verdin [address] | disc disease), | | | | [place], | [facility], | cervical (Primary | | | | [place] [address] | [place] [address] | Dx); Foraminal | | | | [phone] | [phone] | stenosis of cervical | | | | | | region; Stenosis of | | | | | | cervical spine | +--------+---------+ + + + Social History [...] + + + | Blood Pressure | 135/70 | 08/19/2016 3:25 PM | | | | | PDT | | + + + + + | Pulse | 63 | 08/19/2016 3:25 PM | | | | | PDT [...] Weight | 79.8 kg (176 lb) | 08/19/2016 3:25 PM | | | | | PDT | | + + + + + | Height | 162.6 cm (5' 4") | 08/19/2016 3:25 PM | | | | | PDT | | + + + + + | Body Mass Index | 30.21 | 08/19/2016 3:25 PM | | | | | PDT | | + + + + + documented in this encounter Patient Instructions Patient Instructions Velvet Slade PA-C - 08/19/2016 3:40 PM PDT1) Cervical epidura l injection with Dr. Selby - August 29, same day as Dr. Jensen Steroids are a very strong anti-inflammatory, this helps reduce pain by reducing swelling. Complications of steroids are bleeding, infection, and an increase of blood sugars if you are diabetic. FDC risk can lead to osteoporosis which is why we limited the number of injections to 3 times per year. Epidural injections target the spinal stenosis by putting the steroid around the nerves that come out of the spine with hopes the steroid gets into t he region of the stenosis. The procedure is about 20 minutes long. You will lie on your evangelina k while x-rays are taken. Once the region is marked, it is numbed and then injected with st eroids. documented in this encounter Progress Notes Velvet Slade PA-C - 08/19/2016 3:48 PM PDTFormatting of this note might be differe nt from the original. CHIEF COMPLAINT: Chief Complaint Patient presents with Neck Pain Follow-up MRI review HISTORY OF PRESENT ILLNESS: The patient is a 81 y.o. female being seen [...] is mostly using a heating pad for relief along with a lidocaine patch. She rates the pain as 5 on sc win of 1-10. She describes the pain as aching, worse with prolonged standing, bending, stoo ping, reaching, and working with her hands while in the kitchen. Her symptoms improve with postural control and heating pad and use of lidocaine patches. She started PT at the [facility] in [place], but then self discharged because it aggravated her right arthritis shoulder wh ich she gets steroid injections every [address] Jensen. She is here today to review MRI results. The patient does describe numbness of the [...] No abnormal bleeding PHYSICAL EXAMINATION: Filed Vitals: 08/19/16 1525 BP: 135/70 Pulse: 63 PainSc: 5 PainLoc: Neck Body mass index is 30.2 kg/(m^2). 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 She has appropriate fund of knowledge [...] with the patient today during the visit. [facility] MRI shows no disc bulge or protrusion, central canal stenosis or neural foraminal narrow ing at any level. The cervical MRI shows significant DDD causing flattening of the cord at C4-C5 and left neural foraminal narrowing from C4-C5 through C6-C7. ASSESSMENT: 1. DDD (degenerative disc disease), cervical 2. Foraminal stenosis of cervical region 3. Stenosis of cervical spine PLAN: 1. Thoracic back pain on the right, unresponsive to trigger point injections and PT. Teresa issa referred pain from cervical spinal stenosis. Discussed epidural injections with Dr. Laura pineda, she would like to do this. A C7/T1 ILESI was ordered today and will be done along wi th the right shoulder steroid injection she gets by Dr. Jensen every 4 months. 2. Medications have been reviewed at today's visit with no changes made at this time. She cannot take any NSAIDS due to developing ulcers. She has used voltaren in the past but is n ow using the gel. She does have hydrocodone which provides significant relief. She has sta rted using lidocaine patches per my request and indicates this does help when she uses them. 3. Advised to fill out the post injection pain log and we will follow up accordingly ELECTRONICALLY SIGNED BY: Velvet Slade PA-C, 08/19/2016 CC: Neptali Hopkins documented in this encounter Plan of Treatment +--------+---------+ + + + | Date | Type | Specialty | Care Team | Description | +--------+---------+ + + + | 06/02/ | Office | Orthopedic Surgery | Ulysses Jensen, | | | 2019 | Visit | | MD Danny FLANNERY | | | | | | [place] | | | | | | [id number] | | | | | | | | +--------+---------+ + + + | 11/21/ | Office | Cardiology | Yesi, | | | 2019 | Visit | | JOSE ALBERTO Linder [address] | | | | | | [place], | | | | | | [place] [address] | | | | | | [phone] | | | | | | | | +--------+---------+ + + + + + +--------+ + + | Name | Type | Priori | Associated Diagnoses | Order Schedule | | | | ty | | | + + +--------+ + + | Massage Therapy - | Outpatient | Routin | DDD (degenerative | Ordered: 08/19/2016 | | AMB Referral | Referral | e | disc disease), | | | | | | cervical Foraminal | | | | | | stenosis of cervical | | | | | | region Stenosis of | | | | | | cervical spine | | + + +--------+ + + documented as of this encounter Results FL COREY Cervical Thoracic Interlaminar (08/29/2016 1:10 PM PDT) + + | Specimen | + + | | + + + + + | Narrative | Performed At | + + + | 08/29/2016 CERVICAL INTERLAMINAR EPIDURAL STEROID INJECTION | [facility] | | CLINICAL HISTORY: ICD-10 CODE M54.12 CERVICAL RADICULOPATHY Soumya | [facility] | | Alisa Jackson presents to the fluoroscopy suite for a | [facility] | | fluoroscopically-guided C7-T1 interlaminar epidural steroid injection, | - IMAGING | | right of midline, as part of conservative management for chronic | | | pain with cervical radiculopathy and degenerative disk disease. | | | After informed consent was obtained, the patient lay in the prone | | | position on the fluoroscopy table. The area was identified under | | | fluoroscopic guidance. The area was prepped and draped in sterile | | | fashion. A 25-gauge, 1.5-inch needle was inserted into this region | | | and approximately 3 mL of buffered 1% lidocaine was infused. Then a | | | 22-gauge epidural needle was advanced into the epidural space at the | | | C7-T1 level. Confirmation into the epidural space was obtained | | | with loss of resistance, as well as infusion of approximately 1 mL | | | of Isovue contrast which showed epidural flow. Then, a combination | | | of 2.5 mL of normal saline and 1.5 mL of 6 mg/mL Celestone was | | | infused. The patient tolerated the procedure well without | | | complications. Pre- and post-procedure blood pressures were stable. | | | The patient was given verbal as well as written followup | | | instructions. Prior to the start of the procedure, the following | | | were performed and verified, including correct patient identity, | | | correct site/side marked and visible, agreement on the procedure to | | | be done, correct patient positioning and an accurate procedure | | | consent form. Any safety precautions based on clinical history | | | and/or medication use have been addressed. I personally performed | | | the procedure above. Estimated blood loss: Minimal | | | Complications: None Findings: As expected Anesthesia: Local 1% | | | Lidocaine | | + + + + + + + + | Performing | Address | City/State/Zipcode | Phone Number | | Organization | | | | + + + + + | [facility] | [address] | [place] | [phone] | | [facility] | | [address] | | | - IMAGING | | | | + + + + + documented in this encounter Visit Diagnoses + + | Diagnosis | + + | DDD (degenerative disc disease), cervical - Primary Degeneration of cervical | | intervertebral disc | + + | Foraminal stenosis of cervical region Spinal stenosis in cervical region | + + | Stenosis of cervical spine Spinal stenosis in cervical region | + + documented in this encounter
--- OUTSIDE RECORDS SUMMARY | ~2019-04-12 | XMS | Encounter Summary ---
Demographics + + + | Address | [address] | | | [place] [address] | + + + | Home Phone [...] | Author | [facility] | | | and [place] | + + + | Organization | [facility] [...] | | | | | [place] [address] | | + + + + + | Hunter Jackson | ECON | [place] | | + + + + + | Wes Jackson | ECON | [place], [place] | | + + + + + | Oziel Jackson | ECON | [place], [place] | | + + + + + Care Team Providers + +------+ + | Care Truck Assembler Name | Role | Phone | [...] | 01/25/ | Refill | [facility] [place] [facility] | Rodolfo Cruz, | Medication Refill | | 2015 | | MEDICINE [address] | [address] | | | | | [place] | [place] | | | | | [place] [address] | [address] | | | | | [phone] | | | +--------+--------+ + + + [...] | | | | | | [place] [address] | | | | | | [phone] | | | | | | | | +--------+---------+ + + + documented as of this encounter Visit Diagnoses Not on filedocumented in this encounter"
--- OUTSIDE RECORDS SUMMARY | ~2019-04-12 | XMS | Encounter Summary ---
Demographics + + + | Address | [address] | | | [place] [address] | + + + | Home Phone [...] | Author | [facility] | | | and [place] | + + + | Organization | [facility] | | [...] | | | | | [place] [address] | | + + + + + | Hunter Jackson | ECON | [place] | | + + + + + | Wes Jackson | ECON | [place], [place] | | + + + + + | Oziel Jackson | ECON | [place], [place] | | + + + + + Care Team Providers + +------+ + | Care Academic Vice President Name | Role | Phone | + +------+ + | Rodolfo Cruz MD | PCP | | + +------+ + Reason for Visit + + + | Reason | Comments | + + + | Follow-up | right shoulder pain wants injection& right cmc injection | + + + Encounter Details +--------+---------+ + + + | Date | Type | Department | Care Team | Description | +--------+---------+ + + + | 02/20/ | Office | [facility] [place] | Ulysses Jensen, | [facility] arthritis | | 2015 | Visit | ORTHOPEDIC SURGERY | MD [address] [facility] | (Primary Dx) | | | | [address] [facility] | [place] [address] | | | | | [place] | [address] | | | | | [address] | | | | | | [phone] | | | +--------+---------+ + + + [...] Temperature | 36.8 C (98.2 F) | 02/20/2015 3:13 PM | | | | | PDT [...] encounter Progress Notes Ulysses Jensen MD - 02/20/2015 3:25 PM PDTPatient returns 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 She's doing well with conservative management with an intermittent injection and wishes to repeat that today Under sterile conditions I injected 1/2 cc Celestone and 1 cc Marcaine into right first CMC joint No complications Will return as needed documented in this encounter Plan of Treatment +--------+---------+ + + + | Date | Type | Specialty | Care Team | Description | +--------+---------+ + + + | 06/02/ | Office | Orthopedic Surgery | Ulysses Jensen, | | | 2020 | Visit | | MD Danny PARHAM | | | | | | [place] | | | | | | [address] | | | | | | | | +--------+---------+ + + + | 11/21/ | Office | Cardiology | Yesi, | | | 2020 | Visit | | JOSE ALBERTO Linder [address] | | | | | | [place], | | | | | | [place] [address] | | | | | | [phone] | | | | | | | | +--------+---------+ + + + documented as of this encounter Visit Diagnoses + + | Diagnosis | + + | CMC arthritis - Primary Unspecified arthropathy, hand | + + documented in this encounter"
--- OUTSIDE RECORDS SUMMARY | ~2019-04-12 | XMS | Encounter Summary ---
Demographics + + + | Address | [address] | | | [place] [address] | + + + | Home Phone [...] + | Author | [facility] | | | and [place] | + + + | Organization | [facility] | [...] | | | | | [place] [address] | | + + + + + | Hunter Jackson | ECON | [place] | | + + + + + | Wes Jackson | ECON | [place], [place] | | + + + + + | Oziel Jackson | ECON | [place], [place] | | + + + + + Care Team Providers + +------+ + | Care Greens Laborer Name | Role | Phone | + [...] Description | +--------+--------+ + + + | 05/02/ | Refill | [facility] | Rodolfo Cruz, | Medication Refill | | 2015 | | MEDICINE [address] | [address] | | | | | [place] | [place] [address] | | | | | [place] [address] | [address] | | | | | [phone] | | | +--------+--------+ + + + [...] | | | | | | [place] [address] | | | | | | [phone] | | | | | | | | +--------+---------+ + + + documented as of this encounter Visit Diagnoses + + | Diagnosis | + + | Pain - Primary Generalized pain | + + documented in this encounter"
--- OUTSIDE RECORDS SUMMARY | ~2019-04-12 | XMS | Encounter Summary ---
Demographics + + + | Address | [address] | | | [place] [address] | + + + | Home Phone [...] Author | [facility] | | | and [place] | + + + | Organization | [facility] | | | and [place] | + + + | Address | Unknown | + + + | Phone | Unavailable | + + + Support + + + + + | Name | Relationship | Address | Phone | + + + + + | Osmin Jackson | ECON | [address] | | | | | [place] [address] | | + + + + + | Hunter Jackson | ECON | [place] | | + + + + + | Wes Jackson | ECON | [place], [place] | | + + + + + | Oziel Jackson | ECON | [place], [place] | | + + + + + Care Team Providers + +------+ + | Care Butcher Or Smallgoods Maker Name | Role | Phone | [...] | [address] | [address] | | | | | xray | [address] [place] | [place], | | | | | Procedures | [place] | [place] | | | | | [place] Bone Scan | [address] | [address] | | | | | Whole Body | Phone: | Phone: | | | | | | [phone] | [phone] | | | | | | Fax: | Fax: | | | | | | [phone] | [phone] | +--------+--------+ + + + + Encounter Details +--------+ + + + + | Date | Type | Department | Care Team | Description | +--------+ + + + + | 10/27/ | Orders Only | [facility] [place] [facility] | Rodolfo Cruz, | Lytic bone lesions | | 2013 | | MEDICINE [facility] | MD [address] | on xray (Primary Dx) | | | | Street [facility] | [place] | | | | | [facility] [place] [address] | [address] | | | | | [phone] | | | +--------+ + + + [...] [place] | | | | | | [address] | | | | | | | | +--------+---------+ + + + | 11/21/ | Office | Cardiology | Yesi, | | | 2019 | Visit | | JOSE ALBERTO Linder [address] | | | | | | [place], | | | | | | [place] [address] | | | | | | [phone] | | | | | | | [...]
--- OUTSIDE RECORDS SUMMARY | ~2019-04-12 | XMS | Encounter Summary ---
Demographics + + + | Address | [address] | | | [place] [address] | + + + | Home Phone | | + + + | Preferred Language | Unknown | + + + | Marital Status | | + + + | Shinto Affiliation | Unknown | + + + | Race | Unknown | + + + | Ethnic Group | Unknown | + + + Author + + + | Author | [facility] | | | and [place] | + + + | Organization | [facility] [...] | | | | | [place] [address] | | + + + + + | Hunter Jackson | ECON | [place] | | + + + + + | Wes Jackson | ECON | [place], [place] | | + + + + + | Oziel Jackson | ECON | [place], [place] | | + + + + + Care Team Providers + +------+ + | Care Director Of Gift Planning Name | Role | Phone | + [...] Heart | MD Irina | [address] | | | | | murmur | [address] | [place], | | | | | Procedures | [address] | [place] | | | | | ECHO | [place], | [address] | | | | | Complete [place] | [place] [address] | Phone: | | | | | ECHO HEART | Phone: | [phone] | | | | | [place] | [phone] | Fax: | | | | | [address] | Fax: | [phone] | | | | | [place] | [phone] | | | | | | ECHO [...] Required | | hypertension | [address] [facility] | [address] | | | | | | [address]VE [place] | [address] | | | | | | [place], [place] | [place], | | | | | | [address] | [place] [address] | | | | | | Phone: | Phone: | | | | | | [phone] | [phone] | | | | | | Fax: | Fax: | | | | | | [phone] | [phone] | +--------+ + + + + + Encounter Details +--------+---------+ + + + | Date | Type | Department | Care Team | Description | +--------+---------+ + + + | 10/17/ | Office | [facility] | Irina Simms, | Essential | | 2015 | Visit | CARDIOLOGY [address] | [address] [place] | hypertension | | | | [place], | [place], | (Primary Dx); Heart | | | | [place] [address] | [place] [address] | murmur | | | | [phone] | [phone] | | | | | | | [...] attending water aerobic program in an attendant, [place]. She cannot walk far due to her chronic back pain . Patient also enjoys roman catholic activity. 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 There is [...] murmur. Electronically signed by: Irina Simms MD [facility] 10/17/2014 Portions of this chart may have been created with [employer] voice recognition software. Occasi onal wrong-word or [...] | | | | | | [place] [address] | | | | | | [phone] | | | | | | | [...] Performed At | + + + | [facility] | [place] | | STUDY DATE: 10/25/2014 PATIENT NAME: Soumya Jackson : | [facility] | | 1935 PCP: Rodolfo Cruz MD CLINICAL | [facility] | | HISTORY/DIAGNOSIS: MURMUR A [...] by: | | | Irina Simms MD [facility] 10/25/2014 11:39 | | | Jewel Inserter: Samm Caceres, RDCS, RVT, RDMS | | + + + + + + + + | Performing | Address | City/State/Zipcode | Phone Number | | Organization | | | | + + + + + | [facility] | [address] | [place], [place] | [phone] | | [facility] | | [address] | | | - IMAGING | | [...]
--- OUTSIDE RECORDS SUMMARY | ~2019-04-12 | XMS | Encounter Summary ---
Demographics + + + | Address | [address] | | | [place] [address] | + + + | Home Phone [...] [facility] | | | and [place] | + + + | Organization | [facility] [...] | | | | | [place] [address] | | + + + + + | Gisele Jackson | ECON | [place] | | + + + + + | Wes Jackson | ECON | [place], [place] | | + + + + + | Oziel Jackson | ECON | [place], [place] | | + + + + + Care Team Providers + +------+ + | Care Marina Porter Name | Role | Phone | + [...] Required | | Impaired | [address] [facility] | HOSPITAL | | | | | functional | AVE [place] | [address] | | | | | mobility, | [place] | AVE | | | | | balance, and | [address] | [place] | | | | | endurance | Phone: | [address] | | | | | | [phone] | Phone: | | | | | | Fax: | [phone] | | | | | | [phone] | Fax: | | | | | | | [phone] | +--------+ + + + + + Reason for Visit + + + | Reason | Comments | + + + | Referral | | + + + Encounter Details +--------+ + + + + | Date | Type | Department | Care Team | Description | +--------+ + + + + | 12/13/ | Telephone | [facility] | Rodolfo Cruz, | Referral | | 2015 | | MEDICINE [address] [place] [address] | [address] | | | | | [facility] | [place] [facility] [place] | | | | | [place] [address] | [address] | | | | | [phone] | | | +--------+ + + + [...] | | | | | | [place] [address] | | | | | | [phone] | | | | | | | [...]
--- OUTSIDE RECORDS SUMMARY | ~2019-04-12 | XMS | Encounter Summary ---
Demographics + + + | Address | [address] | | | [place] [address] | + + + | Home Phone [...] Author | [facility] | | | and [place] | + + + | Organization | [facility] | | | and [...] | | | | | [place] [address] | | + + + + + | Hunter Jackson | ECON | [place] | | + + + + + | Wes Jackson | ECON | [place], [place] | | + + + + + | Oziel Jackson | ECON | [place], [place] | | + + + + + Care Team Providers + +------+ + | Care Sewer And Drain Technician Name | Role | Phone | [...] Description | +--------+--------+ + + + | 08/16/ | Refill | [facility] [place] [facility] | Rodolfo Cruz, | Medication Refill | | 2016 | | MEDICINE [address] | [address] | | | | | [place] | [place] [address] | | | | | [place] [address] | [address] | | | | | [phone] | | | +--------+--------+ + + + [...] | | | | | | [place] [address] | | | | | | [phone] | | | | | | | | +--------+---------+ + + + documented as of this encounter Visit Diagnoses + + | Diagnosis | + + | Insomnia, unspecified insomnia - Primary | + + documented in this encounter"
--- OUTSIDE RECORDS SUMMARY | ~2019-04-12 | XMS | Encounter Summary ---
Demographics + + + | Address | [address] | | | [place] [address] | + + + | Home Phone [...] + + | Author | [facility] | | | and [place] | + + + | Organization | [facility] | | | and [...] | | | | | [place] [address] | | + + + + + | Hunter Jackson | ECON | [place] | | + + + + + | Wes Jackson | ECON | [place], [place] | | + + + + + | Oziel Jackson | ECON | [place], [place] | | + + + + + Care Team Providers + +------+ + | Care Service Coordinator Name | Role | Phone | [...] Description | +--------+--------+ + + + | 07/08/ | Refill | [facility] | Rodolfo Cruz, | Medication Refill | | 2015 | | [facility] [place] | [address] | | | | | [address] | [place] | | | | | [place] | [address] | | | | | [address] | | | | | | [phone] | | | +--------+--------+ + + + [...] | | | | | | [place] [address] | | | | | | [phone] | | | | | | | | +--------+---------+ + + + documented as of this encounter Visit Diagnoses Not on filedocumented in this encounter"
--- OUTSIDE RECORDS SUMMARY | ~2019-04-12 | XMS | Encounter Summary ---
Demographics + + + | Address | [address] | | | [place] [address] | + + + | Home Phone [...] | Author | [facility] | | | and [place] | + + + | Organization | [facility] | [...] [place] | | | | | [place] [address] | | + + + + + | Hunter Jackson | ECON | [place] | | + + + + + | Wes Jackson | ECON | [place], [place] | | + + + + + | Oziel Jackson | ECON | [place], [place] | | + + + + + Care Team Providers + +------+ + | Care Day Habilitation Supervisor Name | Role | Phone | + +------+ + | Gunderson, Kellie PA | PCP | | + +------+ + Reason for Visit +---------+ + | Reason | Comments | +---------+ + | Consult | CAD | +---------+ + Evaluate & Treat (Routine) +--------+--------+ + + + + | Status | Reason | Specialty | Diagnoses / | Referred By | Referred To | | | | | Procedures | Contact | Contact | +--------+--------+ + + + + | Closed | | Cardiothoraci | Diagnoses | Mendez, | Eze | | | | c Surgery | CAD | MD Irina | MD Christina | | | | | (coronary | [address] | | | | | artery | [address] | [address] [place], | | | | | disease) | [place], | [place] [address] | | | | | Procedures | [place] [address] | Phone: | | | | | Has CAD and | Phone: | [phone] | | | | | needs to be | [phone] | Fax: | | | | | avaluated | Fax: | [phone] | | | | | for bypass | [phone] | | | | | | surgery. | | | +--------+--------+ + + + + Encounter Details +--------+---------+ + + + | Date | Type | Department | Care Team | Description | +--------+---------+ + + + | 10/31/ | Office | [facility] | Eze, | Coronary artery | | 2017 | Visit | [facility] | MD Christina [address] | disease of [place] | | | | [facility] [address] [place] | artery of [place] | | | | [address] | [phone] | heart with stable | | | | [place] | | angina pectoris | | | | [address] | | ([facility]) (Primary Dx) | | | | [phone] | | | +--------+---------+ + + + [...] + + + | Blood Pressure | 160/74 | 10/31/2016 1:30 PM | | | | | PDT | | + + + + + | Pulse | 62 | 10/31/2016 1:27 PM | | | | | PDT | | + + + + + | Temperature | - | - | | + + + + + | Respiratory Rate | - | - | | + + + + + | Oxygen Saturation | 99% | 10/31/2016 1:27 PM | | | | | PDT | | + + + + + | Inhaled Oxygen | - | - | | | Concentration | | | | + + + + + | Weight | 79.4 kg (175 lb) | 10/31/2016 1:27 PM | | | | | PDT | | + + + + + | Height | 163.8 cm (5' 4.5") | 10/31/2016 1:27 PM | | | | | PDT | | + + + + + | Body Mass Index | 29.57 | 10/31/2016 1:27 PM | | | | | PDT [...] STREETER | | | | | | [address] | | | | | | | | +--------+---------+ + + + | 11/21/ | Office | Cardiology | Yesi, | | | 2019 | Visit | | JOSE ALBERTO Linder [address] | | | | | | [place] | | | | | | [place] [address] | | | | | | [phone] | | | | | | | | +--------+---------+ + + + documented as of this encounter Visit Diagnoses + + | Diagnosis | + + | Coronary artery disease of [place] artery of [place] heart with stable angina pectoris | | (HCC) - Primary | + + documented in this encounter
--- OUTSIDE RECORDS SUMMARY | ~2019-04-12 | XMS | Encounter Summary ---
Demographics + + + | Address | [address] | | | [place] [address] | + + + | Home Phone [...] Author | [facility] | | | and [place] | + + + | Organization | [facility] | [...] [place] | | | | | [place] [address] | | + + + + + | Hunter Jackson | ECON | [place] | | + + + + + | Wes Jackson | ECON | [place], [place] | | + + + + + | Oziel Jackson | ECON | [place], [place] | | + + + + + Care Team Providers + +------+ + | Care Manager Valuation Name | Role | Phone | + +------+ + | Gunderson, Kellie PA | PCP | | + +------+ + Reason for Visit + + + | Reason | Comments | + + + | Results, Imaging | review right shoulder MRI | + + + Encounter Details +--------+---------+ + + + | Date | Type | Department | Care Team | Description | +--------+---------+ + + + | 10/21/ | Office | [facility] | Ulysses Jensen, | Complete tear of | | 2017 | Visit | ORTHOPEDIC SURGERY | [address] | right rotator cuff | | | | [address] [facility] | [place] [address] | (Primary Dx) | | | | [place] | [address] | | | | | [address] | | | | | | [phone] | | | +--------+---------+ + + + [...] encounter Progress Notes Ulysses Jensen MD - 10/21/2016 4:00 PM PDTPatient returns follow up MRI right shoulder Since our last visit she has been diagnosed with severe CAD and is scheduled to undergo CAB G at [facility] next week She kept this appointment just to see what the MRI shows but certainly her shoulder is taki ng a back seat to more pressing concerns She states that her shoulder isn't hurting as much as it was when we ordered the MRI She states that if her symptoms stayed at the level she now is experiencing she wouldn't pu rsue doing anything about it On exam today her right shoulder is much less irritable than last visit She has a negative drop arm sign but does have weakness to abduction in the scapular plane I reviewed her MRI images with her today and she has a large infraspinatous tear with marke d retraction to the glenoid She has obvious atrophy of the musculature The supraspinatous is very abnormal but not detached Impression - large retracted infraspinatous tear chronic The natural history and treatment options discussed with her today I"m not sure that her cuff tear would be repairable even if she wanted to do surgery The role of partial repair with decompression discussed and finally the role of reverse TSA For now will cope with her present symptoms and let me know if she wants to pursue anything aggressively documente d in this encounter Plan of Treatment +--------+---------+ + + + | Date | Type | Specialty | Care Team | Description | +--------+---------+ + + + | 06/02/ | Office | Orthopedic Surgery | Ulysses Jensen, | | | 2019 | Visit | | MD Danny [address] | | | | | | [place] | | | | | | [id number] | | | | | | | | +--------+---------+ + + + | 11/21/ | Office | Cardiology | Yesi, | | | 2019 | Visit | | JOSE ALBERTO [address]inder [address] | | | | | | [place], | | | | | | [place] [address] | | | | | | [phone] | | | | | | | | +--------+---------+ + + + documented as of this encounter Visit Diagnoses + + | Diagnosis | + + | Complete tear of right rotator cuff - Primary | + + documented in this encounter
--- OUTSIDE RECORDS SUMMARY | ~2019-04-12 | XMS | Encounter Summary ---
Demographics + + + | Address | [address] | | | [place] [address] | + + + | Home Phone [...] + | Author | [facility] | | | and [place] | + + + | Organization | [facility] | [...] | | | | | [place] [address] | | + + + + + | Hunter Jackson | ECON | [place] | | + + + + + | Wes Jackson | ECON | [place], [place] | | + + + + + | Oziel Jackson | ECON | [place], [place] | | + + + + + Care Team Providers + +------+ + | Care Needle Felt Making Machine Operator Name | Role | Phone | + +------+ + | Rodolfo Cruz MD | PCP | | + +------+ + Reason for Visit + + + | Reason | Comments | + + + | Dizziness | | + + + Evaluate & [...] | Vertigo | Rodolfo Reilly MD | [address] | | | Required | | | [address] | | | | | | [address] [place] | [address] | | | | | | [place], [place] | [place], | | | | | | [address] | [place] [address] | | | | | | Phone: | Phone: | | | | | | [phone] | [phone] | | | | | | Fax: | Fax: | | | | | | [phone] | [phone] | +--------+ + + + + + Encounter Details +--------+---------+ + + + | Date | Type | Department | Care Team | Description | +--------+---------+ + + + | 03/25/ | Office | [facility] | Zion Davis MD | Meniere's disease, | | 2011 | Visit | OTOLARYNGOLOGY [address] | [address] | unspecified (Primary | | | | [address] | [address] [place], | Dx); Mixed hearing | | | | [place] | [place] [address] | loss, unilateral | | | | [address] | [phone] | | | | | [phone] | | | +--------+---------+ + + + [...] + + + | Blood Pressure | 126/80 | 03/25/2012 11:46 AM | | | | | PST | | + + + + + | Pulse | 76 | 03/25/2012 11:46 AM | | | | | PST [...] Weight | 93 kg (205 lb) | 03/25/2012 11:46 AM | | | | | PST | | + + + + + | Height | 167.6 cm (5' 6") | 03/25/2012 11:46 AM | | | | | PST | | + + + + + | Body Mass Index | 33.09 | 03/25/2012 11:46 AM | | | | | PST | | + + + + + documented in this encounter Progress Notes Zion Davis MD - 03/25/2012 1:21 PM PSTSee dictation #[id number] signed by José Luis Davis MD at 03/25/2012 1:24 PM PSTdocumented in this encounter Plan of Treatment +--------+---------+ [...] | | | | | | [place] [address] | | | | | | [phone] | | | | | | | | +--------+---------+ + + + documented as of this encounter Visit Diagnoses + + | Diagnosis | + + | Meniere's disease, unspecified - Primary | + + | Mixed hearing loss, unilateral | + + documented in this encounter
--- OUTSIDE RECORDS SUMMARY | ~2019-04-12 | XMS | Clinical Summary ---
Demographics + + + | Address | [address] | | | [place] [address] | + + + | Home Phone | | + + + | Preferred Language | Unknown | + + + | Marital Status | Single | + + + | Caodaism Affiliation [...] Team Providers + +------+ + | Care Wallpaper Printer Helper Name | Role | Phone | + +------+ + PCP | Unavailable | + +------+ + Source Comments KULDIP is fully live on both [facility] and [facility] InPatient.[facility] Allergies Not on File Medications Not [...] | | | | | | | [address] | | + +--------+ +--------+ + +--------+ | MODA | MODA | [phone] | Effect | [phone] | [address] | [address] | | | [place] | | faiza | 4 | [address] | | | | [place] | | for | | [place], | | | | | | all | | [place] [address] | | | | | | dates [...] | 1936 | [phone] | [place] [address] | | | saba | | | 9 (Home) | | + +--------+ +--------+ + +"
--- OUTSIDE RECORDS SUMMARY | ~2019-04-12 | XMS | Encounter Summary ---
Demographics + + + | Address | [address] | | | [place] [address] | + + + | Home Phone [...] | [facility] | | | and [place] | + + + | Organization | [facility] | | | [...] [place] | | | | | [place] [address] | | + + + + + | Hunter Jackson | ECON | [place] | | + + + + + | Wes Jackson | ECON | [place], [place] | | + + + + + | Oziel Jackson | ECON | [place], [place] | | + + + + + Care Team Providers + +------+ + | Care Body Straightener Name | Role | Phone | + [...] [address] | | | | | [place], | [place], | | | | | [place] [address] | [place] [address] | | | | | [phone] | [phone] | | | | | | | [...] STREETER | | | | | | [address] | | | | | | | | +--------+---------+ + + + | 11/21/ | Office | Cardiology | Yesi, | | | 2019 | Visit | | JOSE ALBERTO [address]inder [address] | | | | | | [place] | | | | | | [place] [address] | | | | | | [phone] | | | | | | | | +--------+---------+ + + + documented as of this encounter Visit Diagnoses Not on filedocumented in this encounter"
--- OUTSIDE RECORDS SUMMARY | ~2019-04-12 | XMS | Encounter Summary ---
Demographics + + + | Address | [address] | | | [place] [address] | + + + | Home Phone [...] | Author | [facility] | | | and [place] | + + + | Organization | [facility] | | | and [place] | + + + | Address | Unknown | + + + | Phone | Unavailable | + + + Support + + + + + | Name | Relationship | Address | Phone | + + + + + | Osmin Jackson | ECON | [address] | | | | | [place] [address] | | + + + + + | uHnter Jackson | ECON | [place] | | + + + + + | Wes Jackson | ECON | [place], [place] | | + + + + + | Oziel Jackson | ECON | [place], [place] | | + + + + + Care Team Providers + +------+ + | Care Church Organist Name | Role | Phone | + +------+ + | Kellie Gunderson | PCP | | + +------+ + Encounter Details +--------+ + + + + | Date | Type | Department | Care Team | Description | +--------+ + + + + | 10/31/ | Hospital | [facility] | Amna Benavides, | | | 2016 | Encounter | HEART MED CTR XRAY | [address] | | | | | [address] | [address] [place] | | | | | [place], [place] | [address] | | | | | [address] | | | | | | [phone] | | | +--------+ + + + [...] [place]REET[place] | | | | | | [address] | | | | | | | | +--------+---------+ + + + | 11/21/ | Office | Cardiology | Yesi, | | | 2019 | Visit | | JOSE ALBERTO Linder [address] | | | | | | [place], | | | | | | [place] [address] | | | | | | [phone] | | | | | | | [...]
--- OUTSIDE RECORDS SUMMARY | ~2019-04-12 | XMS | Encounter Summary ---
Demographics + + + | Address | [address] | | | [place] [address] | + + + | Home Phone [...] Author | [facility] | | | and [place] | + + + | Organization | [facility] | [...] | | | | | [place] [address] | | + + + + + | Hunter Jackson | ECON | [place] | | + + + + + | Wes Jackson | ECON | [place], [place] | | + + + + + | Oziel Jackson | ECON | [place], [place] | | + + + + + Care Team Providers + +------+ + | Care Support Services Coordinator Name | Role | Phone | [...] | +--------+ + + + + | 03/31/ | Telephone | [facility] | Rodolfo Cruz, | Results | | 2014 | | MEDICINE [place] [facility] Sravan | MD [address] | | | | | [place] | [place] [address] | | | | | [place] [address] | [address] | | | | | [phone] | | | +--------+ + + + [...] | | | | | | [place] [address] | | | | | | [phone] | | | | | | | | +--------+---------+ + + + documented as of this encounter Visit Diagnoses Not on filedocumented in this encounter"
--- OUTSIDE RECORDS SUMMARY | ~2019-04-12 | XMS | Encounter Summary ---
Demographics + + + | Address | [address] | | | [place] [address] | + + + | Home Phone | | + + + | Preferred Language | Unknown | + + + | Marital Status | | + + + | Faith Affiliation | Unknown | + + + | Race | Unknown | + + + | Ethnic Group | Unknown | + + + Author + + + | Author | [facility] | | | and [place] | + + + | Organization | [facility] [...] [place] | | | | | [place] [address] | | + + + + + | Hunter Jackson | ECON | [place] | | + + + + + | Wes Jackson | ECON | [place], [place] | | + + + + + | Oziel Jackson | ECON | [place], [place] | | + + + + + Care Team Providers + +------+ + | Care Autoclave Operator Name | Role | Phone | + +------+ + | Gunderson, Kellie PA | PCP | | + +------+ + Reason for Visit + + + | Reason | Comments | + + + | Back Pain | mid-back and neck pain | + + + Encounter Details +--------+---------+ + + + | Date | Type | Department | Care Team | Description | +--------+---------+ + + + | 04/28/ | Office | [facility] | Harsha Selby | Cervical | | 2017 | Visit | PHYSIATRY [address] | MD Josh [address] | radiculopathy | | | | [place], | [address] [place], [place] | (Primary Dx); DDD | | | | [place] [address] | [address] | (degenerative disc | | | | [phone] | | disease), cervical; | | | | | | Foraminal stenosis | | | | | | of cervical region; | | | | | | Stenosis of cervical | | | | | | spine | +--------+---------+ + + + Social [...] + + + | Blood Pressure | 136/70 | 04/28/2017 9:46 AM | | | | | PST | | + + + + + | Pulse | 62 | 04/28/2017 9:46 AM | | | | | PST [...] | 78.9 kg (174 lb) | 04/28/2017 9:46 AM | | | | | PST | | + + + + + | Height | 162.6 cm (5' 4") | 04/28/2017 9:46 AM | | | | | PST | | + + + + + | Body Mass Index | 29.87 | 04/28/2017 9:46 AM | | | | | PST | | + + + + + documented in this encounter Progress Notes Harsha Selby MD - 04/28/2017 9:30 AM PST CHIEF COMPLAINT: Chief Complaint Patient presents with Back Pain mid-back and neck pain HISTORY OF PRESENT ILLNESS: The patient is a 81 y.o. female being seen today in follow-up for complaints of mid back pa in. We saw her over a year ago. [...] last year her symptoms have worsened. She has been using Voltaren Gel on her painful areas as well as CBD oil on her neck which helps her pain. She describes the pain as aching, worse with prolonged standing, bending, stooping, reachi ng, and working with her hands while in the kitchen. Her symptoms improve with postural co ntrol and heating pad and use of lidocaine patches. She started PT at the [facility] in [place], but then self discharged because it aggravated her right arthritic shoulder which she gets steroid injections every [address] Jensen. She underwent a triple-bypass surgery in [facility] of this year so treatments for her back and neck pain were put on hold which is why she has returned today. Before her surgery she had a C7-T1 ILESI in August 2016 she cannot rememb er if it provided much relief. A review of her pain diary suggests she had only partial imp rovement. 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 She does not report weakness. She does not have bowel and bladder dysfunction. She does not have saddle anesthesia. Treatments for these complaints have included physical therapy, chiropractics along with use of hydrocodone/apap at night. She does use Voltaren Gel which she reports helps. She had previous trigger point injections. She cannot remember if this helped. A prior epidural provided partial relief. Patient's medications, allergies, past medical, surgical, social [...] tablet Take 40 mg by mouth Daily. GARLIC Take 1,000 mg by mouth Daily. [...] child. Yellow Dye Itching REVIEW OF SYSTEMS: (in the last 24 [...] rashes. HEMATOLOGIC/LYMPHATIC: No abnormal bleeding PHYSICAL EXAMINATION: Vitals: 04/28/17 0946 BP: 136/70 Pulse: 62 PainSc: 4 PainLoc: Back Body mass index is 29.87 kg/m. GENERAL: The patient is well developed [...] no apparent deficits with short or terminal superintendent memory. She has appropriate fund of knowledge Cranial nerves 2-12 appear grossly intact. Sensory exam does not show diminished sensation to light touch in the lower extremities. REFLEX: RIGHT LEFT BICEPS 2+ 2+ BRACHIORADIALIS 2+ 2+ TRICEPS 2+ 2+ PATELLAR 2+ 2+ ACHILLES 2+ 2+ PRITCHARD'S Negative Negative PLANTAR Downgoing Downgoing MUSCULOSKELETAL There is no tenderness in the midline of the cervical or thoracic spine. T here is no major palpable deformity of the spine. Range of motion testing of the cervical spine was unremarkable. Spurling sign was negative. Shoulder examination shows well preserved range of motion with external rotation, internal rotation and abduction. She does have pain with forward flexion on the right. Impingement testing was positive on the right, There was no tenderness over the bicipital groove or ov er the AC joint. Speed's test was negative. Empty can test was negative. Strength testin g, including strength testing of the infraspinatus, supraspinatus and subscapularis, in bila teral upper extremities showed mild diffuse weakness on the right due to a prior stroke. RADIOGRAPHIC REVIEW: The patient's imaging was reviewed in detail with the patient today during the visit. [facility] MRI shows no disc bulge or protrusion, central canal stenosis or neural foraminal narrow ing at any level. The cervical MRI shows significant DDD causing a reversal of the normal c ervical lordosis and posterior disc bulges causing flattening of the cord at C4-C5 and left neural foraminal narrowing from C4-C5 through C6-C7. ASSESSMENT: 1. Cervical radiculopathy 2. DDD (degenerative disc disease), cervical 3. Foraminal stenosis of cervical region 4. Stenosis of cervical spine PLAN: 1. Thoracic back pain on the right, unresponsive to trigger point injections and PT. September b e referred pain from cervical spinal stenosis. She had a C7-T1 ILESI on 08/29/16 which her p ain diary showed she only received partial relief. She cannot fully recall if the injection provided her relief because she had other medical issues going on at the time. She would li ke to try this injection again to see if it would help her pain because other treatments hav e failed to provide much relief and she does not want to consider surgery at this time. I d o feel repeating the injection is appropriate. She will be scheduled for this in the near f [facility]. 2. Medications have been reviewed at today's visit with no changes made at this time. She cannot take any NSAIDS due to developing ulcers. She has used Voltaren in the past but is n ow using the gel. She does have hydrocodone/apap which provides significant relief. 3. She has been doing cardio-physical therapy since her bypass surgery, which during the s essions they work on some back/neck exercises. She was encouraged to continue with an HEP. I, Dr. Harsha Selby, personally performed the services described in this documentatio n, as scribed by ALEAXNDREA León in my presence, and it is both accurate and complete. ELECTRONICALLY EDITED AND SIGNED BY: Harsha Selby MD documented in this encounter Plan of Treatment [...] [address] | | | | | | [place], | | | | | | [place] [address] | | | | | | [phone] | | | | | | | | +--------+---------+ + + + documented as of this encounter Procedures + +--------+ + + + | Procedure Name | Priori | Date/Time | Associated Diagnosis | Comments | | | ty | | | | + +--------+ + + + | IMAGING REPORT - | | 03/06/2016 | | Results for this | | [...] + + | Performing | Address | City[facility] | Phone Number | | Organization | | | | + +---------+ + + | [facility] | | | | + +---------+ + + IMAGING REPORT - EXTERNAL SCAN (03/06/2016 12:00 AM PDT) + + + | Narrative | Performed At | + + + | Ordered by an | | | unspecified provider. | | + + + documented in this encounter Visit Diagnoses + + | Diagnosis | + + | Cervical radiculopathy - Primary Brachial neuritis or radiculitis nos | + + | DDD (degenerative disc disease), cervical Degeneration of cervical intervertebral | | disc | + + | Foraminal stenosis of cervical region Spinal stenosis in cervical region | + + | Stenosis of cervical spine Spinal stenosis in cervical region | + + documented in this encounter
--- OUTSIDE RECORDS SUMMARY | ~2019-04-12 | XMS | Encounter Summary ---
Demographics + + + | Address | [address] | | | [place] [address] | + + + | Home Phone [...] | Author | [facility] | | | and [place] | + + + | Organization | [facility] | | [...] [place] | | | | | [place] [address] | | + + + + + | Hunter Jackson | ECON | [place] | | + + + + + | Wes Jackson | ECON | [place], [place] | | + + + + + | Oziel Jackson | ECON | [place], [place] | | + + + + + Care Team Providers + +------+ + | Care Heavy Lift Rigger Name | Role | Phone | + +------+ + | Kellie Gunderson | PCP | | + +------+ + Reason for Visit + + + | Reason | Comments | + + + | Follow-up | | + + + | Coronary Artery | | | Disease | | + + + | Hypertension | | + + + | Heart Murmur | | + + + Encounter Details +--------+---------+ + + + | Date | Type | Department | Care Team | Description | +--------+---------+ + + + | 09/12/ | Office | [facility] | [place], | Hyperlipidemia, | | 2018 | Visit | CARDIOLOGY [address] | JOSE ALBERTO Linder [address] | mixed (Primary Dx); | | | | [place], | [place], | Valvular heart | | | | [place] [address] | [place] [address] | disease; Murmur; | | | | [phone] | [phone] | Essential | | | | | | hypertension with | | | | | | goal blood pressure | | | | | | less than 130/80; | | | | | | Aortic valve | | | | | | insufficiency, | | | | | | etiology of cardiac | | | | | | valve disease | | | | | | unspecified; | | | | | | Coronary artery | | | | | | disease involving | | | | | | kiana coronary | | | | | | artery of kiana | | | | | | heart with unstable | | | | | | angina pectoris | | | | | | ([facility]); Transient | | | | | | [...] + + + | Blood Pressure | 152/78 | 09/12/2017 2:17 PM | | | | | PDT | | + + + + + | Pulse | 58 | 09/12/2017 2:17 PM | | | | | PDT | | + + + + + | Temperature | - | - | | + + + + + | Respiratory Rate | 16 | 09/12/2017 2:17 PM | | | | | PDT | | + + + + + | Oxygen Saturation | - | - | | + + + + + | Inhaled Oxygen | - | - | | | Concentration | | | | + + + + + | Weight | 82.5 kg (181 lb 14.1 | 09/12/2017 2:17 PM | | | | oz) | PDT | | + + + + + | Height | 165.1 cm (5' 5") | 09/12/2017 2:17 PM | | | | | PDT | | + + + + + | Body Mass Index | 30.27 | 09/12/2017 2:17 PM | | | | | PDT | | + + + + + documented in this encounter Patient Instructions Patient Instructions Niyah Key ARNP - 09/12/2017 2:15 PM PDT1. Increase Lisinopr il 20 mg (that's 2 tablets of 10 mg) every evening 2. check blood pressure and pulse twice daily 30 -60 minutes after pills for two weeks and return the log to our office. 3. Follow up in 6 months documented in this encounter Progress Notes Niyah Key ARNP - 09/12/2017 2:15 PM PDTFormatting of this note might be differen t from the original. PATIENT NAME: Soumya Jackson : 1935: AGE: 82 y.o. PRIMARY CARE: FLORA [facility] OUTPATIENT FOLLOW UP VISIT Date of Service: 09/12/2017 HISTORY OF PRESENT ILLNESS: Soumya Jackson is a 82 y.o. female with a history of coronary artery disease post CABG 3 on 11/01/16, moderate aortic valve insufficiency, essential hypertension, osteoarthritis, h ypothyroidism, dyslipidemia, elevated CRP. She was last seen 04/28/2017 at which time the current medical regimen is effective and to continue present plan and medications, and to follow up in 4 months, or sooner with concerns . Since that time, she has continue dealing with insomnia. She has started feeling "jittery a nd anxious". Her PCP recently started her on Buspirone, patient doesn't think it helps her s leep. She also was started on Lisinopril 10 mg daily and her blood pressure from home has be en reading 140-150 for the most part. She has had a fair energy level. She tries to stay ac tive. She is doing aqua-aerobics 3 days a week. She enjoys working still but she is plannin g on retiring by the end of the year. She has not had any chest pain or discomfort at rest or with exertion. She has not noticed shortness of breath. She has not had any lightheade dness or dizziness. She has not noticed palpitations. She has noticed mild swelling at ank les by the end of the day that is resolved in the morning, which has been stable for her. S he sleeps on 1 pillow at night without any shortness of breath. She will be undergoing a eep consultation and study in [place] soon. MEDICAL, SURGICAL, AND PERSONAL HISTORY Past Medical, [...] cervical Cervical radiculopathy Coronary artery disease involving kiana coronary artery of kiana heart with unstable angina pectoris Stress hyperglycemia [...] Respiratory: Negative for shortness of breath. Cardiovascular: Positive for chest pain (Off and on) and palpitations (Patient is unsure). Negative for leg swelling. Neurological: Positive for weakness. Negative for dizziness. Lightheaded = yes, some OBJECTIVE: PHYSICAL EXAM BP 152/78 | Pulse 58 | Resp 16 | Ht 1.651 m (5' 5") | Wt 82.5 kg (181 lb 14.1 oz) | BM I 30.27 kg/m Physical Exam Constitutional: She appears well-developed [...] provider): Results for orders placed or performed during the hospital encounter of 09/12/2017 ECG 12 lead Narrative bradycardia with a heart rate of 58 bpm no acute changes LAB RESULTS reviewed during visit today primarily from [facility]: LIPID Lab Results Component Value Date [...] PLTEX 336 07/21/2017 I reviewed records from PCP for office visit on 08/01/2017 which is summarized in the HPI. Vas segmental pressures legs 07/02/2017 Normal segmental pressures of lower extremities. Peacock MD Above data and testing is reviewed this visit; testing below is historical data unless othe rwise specified. ASSESSMENT: 1. Coronary artery disease A. Seen at [facility] they had EKG and sent her home stating it was GERD B. Seen in the emergency room at [facility] for chest pain. She was schedu le for stress test and discharged home. C. Stress Test 05/16/16, is maximal asymptomatic stress test, [facility] er very poor function status, achieving maximal [...] normal LV function EF 65, mild concentric hypertrophy (11 mm) normal wall motion, normal RV, normal atria and LA appendage, no shunt by CFD. Calcifed ~ 1 cm area in posterior mitral annulus, otherwise valve structure relative ly normal, mild central MR, trace central AI, no , trace TR, trace NH, normal aorta other than mild calcification at ST junction, normal diameter, normal PA, no effusions. H. Coronary artery bypass surgery x 3 11/01/2016 shows VERDUZCO to LAD, saphenous ve in graft to diagonal, saphenous vein graft to right coronary artery, endoscopic vein harves t, left greater saphenous vein by Dr. Loo. I. Vas segmental pressures legs 07/02/2017 Normal segmental pressures of lower e xtremities. Faustino Olivas MD. J. Today, patient continues with no angina or dyspnea, she remains physically active. She is exercising on a regular basis. She continues to pacheco with insomnia and back pain issues . There is no palpitations, dizziness or lightheadedness. Patient can sleep on one pillow a t night without difficulty breathing. There is no signs and symptoms of overt congestive hea rt failure.She is in a class I of [employer] functional class.on physica l examination there is no sign of fluid overload. 2. Essential hypertension with goal blood pressure less than 130/80: A. Today, blood pressure is slightly elevated, we will adjust Lisin opril. 3. Heart murmur due to aortic valve [...] Lipitor after open heart surgery. PLAN: 1. Increase Lisinopril 20 mg (that's 2 tablets of 10 mg) every evening 2. check blood pressure and pulse twice daily 30 -60 minutes after pills for two weeks and return the log to our office. 3. Follow up in 6 months Portions of this chart may have been created with [employer] voice recognition software. Occasi onal wrong-word or [...] STREET[place] | | | | | | [address] | | | | | | | | +--------+---------+ + + + | 11/21/ | Office | Cardiology | Yesi, | | | 2019 | Visit | | JOSE ALBERTO Linder [address] | | | | | | [place], | | | | | | [place] [address] | | | | | | [phone] | | | | | | | | +--------+---------+ + + + documented as of this encounter Procedures + +--------+ + + + | Procedure Name | Priori | Date/Time | Associated Diagnosis | Comments | | | ty | | | | + +--------+ + + + | ECG 12 LEAD | Routin | 09/12/2017 | Hyperlipidemia, | Results for this | | | e | 2:16 PM | mixed Valvular | procedure are in the | | | | PDT | heart disease | results section. | | | | | Murmur Essential | | | | | | hypertension with | | | | | | goal blood pressure | | | | | | less than 130/80 | | | | | | Aortic valve | | | | | | insufficiency, | | | | | | etiology of cardiac | | | | | | valve disease | | | | | | unspecified | | | | | | Coronary artery | | | | | | disease involving | | | | | | kiana coronary | | | | | | artery of kiana | | | | | | heart with unstable | | | | | | angina pectoris | | | | | | ([facility]) Transient | | | | | | cerebral ischemia, | | | | | | unspecified type | | + +--------+ + + + documented in this encounter Results ECG 12 lead (09/12/2017 2:16 PM PDT) + + + + + + | Component | Value | Ref Range | Performed | Pathologist | | | | | At | Signature | + + + + + + | VENTRICULAR | 58 | BPM | [facility] | | | RATE EKG | | | | | + + + + + + | ATRIAL RATE | 58 | BPM | [facility] | | + + + + + + | P-R | 142 | ms | [facility] | | | INTERVAL | | | | | + + + + + + | QRS | 88 | ms | [facility] | | | DURATION | | | | | + + + + + + | Q-T | 424 | ms | [facility] | | | INTERVAL | | | | | + + + + + + | Q-T | 416 | ms | [facility] | | | INTERVAL | | | | | | (CORRECTED) | | | | | + + + + + + | P WAVE AXIS | 55 | degrees | [facility] | | + + + + + + | QRS AXIS | 47 | degrees | [facility] | | + + + + + + | T AXIS | 80 | degrees | [facility] | | + + + + + + | INTERPRETAT | Sinus | | [facility] | | | ION TEXT | bradycardiaPossible Left | | | | | | atrial | | | | | | enlargementNonspecific | | | | | | ST and T wave | | | | | | abnormalityAbnormal | | | | | | ECGWhen compared with | | | | | | ECG of 26-SEP-2016 | | | | | | 10:50,No significant | | | | | | change was | | | | | | foundConfirmed by | | | | | | CHRISTOPHER ARECHIGA MD | | | | | | ([id number]) on 09/12/2017 | | | | | | 4:09:19 PM | | | | + + [...] Diagnosis | + + | Hyperlipidemia, mixed - Primary Mixed hyperlipidemia | + + | Valvular heart disease Endocarditis, valve unspecified, unspecified cause | + + | Murmur Undiagnosed cardiac murmurs | + + | Essential hypertension with goal blood pressure less than 130/80 | + + | Aortic valve insufficiency, etiology of cardiac valve disease unspecified | + + | Coronary artery disease involving kiana coronary artery of kiana heart with unstable | | angina pectoris (HCC) | + + | Transient cerebral ischemia, unspecified type | + + documented in this encounter
--- OUTSIDE RECORDS SUMMARY | ~2019-04-12 | XMS | Encounter Summary ---
Demographics + + + | Address | [address] | | | [place] [address] | + + + | Home Phone [...] + | Author | [facility] | | | and [place] | + + + | Organization | [facility] | | | and [place] | + + + | Address | Unknown | + + + | Phone | Unavailable | + + + Support + + + + + | Name | Relationship | Address | Phone | + + + + + | Osmin Jackson | ECON | [address] | | | | | [place] [address] | | + + + + + | Hunter Jackson | ECON | [place] | | + + + + + | Wes Jackson | ECON | [place], [place] | | + + + + + | Oziel Jackson | ECON | [place], [place] | | + + + + + Care Team Providers + +------+ + | Care Mushroom Packer Name | Role | Phone | [...] | [address] | | | | | [address] | | | | | | [phone] | | | +--------+--------+ + + + [...] | | | | | | [place] [address] | | | | | | [phone] | | | | | | | | +--------+---------+ + + + documented as of this encounter Visit Diagnoses Not on filedocumented in this encounter"
--- OUTSIDE RECORDS SUMMARY | ~2019-04-12 | XMS | Encounter Summary ---
Demographics + + + | Address | [address] | | | [place] [address] | + + + | Home Phone [...] Author | [facility] | | | and [place] | + + + | Organization | [facility] | | [...] | | | | | [place] [address] | | + + + + + | Hunter Jackson | ECON | [place] | | + + + + + | Wes Jackson | ECON | [place], [place] | | + + + + + | Oziel Jackson | ECON | [place], [place] | | + + + + + Care Team Providers + +------+ + | Care Trench Pipe Layer Name | Role | Phone | + [...] + + | 07/18/ | Telephone | [facility] | Rodolfo Cruz, | Medication | | 2015 | | MEDICINE [address] [place] [address] | MD Raya Z[address]ta [address] | Management | | | | [place] | [place] [address] | | | | | [place] [address] | [address] | | | | | [phone] | | | +--------+ + + + [...] | | | | | | [place] [address] | | | | | | [phone] | | | | | | | | +--------+---------+ + + + documented as of this encounter Visit Diagnoses Not on filedocumented in this encounter"
--- OUTSIDE RECORDS SUMMARY | ~2019-04-12 | XMS | Encounter Summary ---
Demographics + + + | Address | [address] | | | [place] [address] | + + + | Home Phone [...] | Author | [facility] | | | and [place] | + + + | Organization | [facility] [...] | | | | | [place] [address] | | + + + + + | Hunter Jackson | ECON | [place] | | + + + + + | Wes Jackson | ECON | [place], [place] | | + + + + + | Oziel Jackson | ECON | [place], [place] | | + + + + + Care Team Providers + +------+ + | Care Pig Machine Operator Helper Name | Role | Phone | [...] | 12/11/ | Refill | [facility] | Rodolfo Cruz, | Medication Refill | | 2016 | | MEDICINE [address] | [address] | | | | | [place] | [place] | | | | | [place] [address] | [address] | | | | | [phone] | | | +--------+--------+ + + + [...] | | | | | | [place] [address] | | | | | | [phone] | | | | | | | | +--------+---------+ + + + documented as of this encounter Visit Diagnoses Not on filedocumented in this encounter"
--- OUTSIDE RECORDS SUMMARY | ~2019-04-12 | XMS | Encounter Summary ---
[...] Author | [facility] | | | and [place] | + + + | Organization | [facility] | | [...] [place] | | | | | [place] [address] | | + + + + + | Hunter Jackson | ECON | [place] | | + + + + + | Wes Jackson | ECON | [place], [place] | | + + + + + | Oziel Jackson | ECON | [place], [place] | | + + + + + Care Team Providers + +------+ + | Care Crystal Gazer Name | Role | Phone | + [...] [address] | | | | | [place], | [place], | | | | | [place] [address] | [place] [address] | | | | | [phone] | [phone] | | | | | | | [...] STREET[place] | | | | | | [id number] | | | | | | | | +--------+---------+ + + + | 11/21/ | Office | Cardiology | Yesi | | | 2019 | Visit | | JOSE ALBERTO Linder [address] | | | | | | [place] | | | | | | [place] [address] | | | | | | [phone] | | | | | | | | +--------+---------+ + + + documented as of this encounter Visit Diagnoses Not on filedocumented in this encounter"
--- OUTSIDE RECORDS SUMMARY | ~2019-04-12 | XMS | Encounter Summary ---
Demographics + + + | Address | [address] | | | [place] [address] | + + + | Home Phone | | + + + | Preferred Language | Unknown | + + + | Marital Status | | + + + | Worship Affiliation | Unknown | + + + | Race | Unknown | + + + | Ethnic Group | Unknown | + + + Author + + + | Author | [facility] | | | and [place] | + + + | Organization | [facility] [...] | | | | | [place] [address] | | + + + + + | Hunter Jackson | ECON | [place] | | + + + + + | Wes Jackson | ECON | [place], [place] | | + + + + + | Oziel Jackson | ECON | [place], [place] | | + + + + + Care Team Providers + +------+ + | Care Sprayer [employer] Name | Role | Phone | + +------+ + | Rodolfo Cruz MD | PCP | | + +------+ + Reason for Visit + + + | Reason | Comments | + + + | Hand Pain | right hand injection | + + + Encounter Details +--------+---------+ + + + | Date | Type | Department | Care Team | Description | +--------+---------+ + + + | 04/09/ | [facility] Ulysses Jensen, | [facility], | | 2011 | Visit | ORTHOPEDIC SURGERY | [address] | thumb, degenerative | | | | [address] | [facility] [place] | (Primary Dx) | | | | [place] | [address] | | | | | [address] | | | | | | [phone] | | | +--------+---------+ + + + [...] Weight | 93 kg (205 lb) | 04/09/2012 11:16 AM | | | | | PST | | + + + + + | Height | 167.6 cm (5' 6") | 04/09/2012 11:16 AM | | | | | PST | | + + + + + | Body Mass Index | 33.09 | 04/09/2012 11:16 AM | | | | | PST | | + + + + + documented in this encounter Progress Notes Ulysses Jensen MD - 04/09/2012 11:55 AM PSTPatient is here for a right hand first CMC sarah nt injection. She has ddja-ms-jees arthrosis and is actually doing quite well with conserva tive management had excellent results with previous injections Under sterile conditions after local anesthesia with 1% lidocaine 3 cc of Celestone was inf iltrated intra-articularly to the first CMC joint no complications she felt better upon leav ing today and we will see her as neededElectronically signed by Ulysses Jensen MD at 2011 11:56 AM PSTdocumented in this encounter Plan of Treatment +--------+---------+ + + + | Date | Type | Specialty | Care Team | Description | +--------+---------+ + + + | 06/02/ | Office | Orthopedic Surgery | Ulysses Jensen, | | 2019 | Visit | | MD [address] | | | | | | [place] | | | | | | [id number] | | | | | | | | +--------+---------+ + + + | 11/21/ | Office | Cardiology | Yesi, | | | 2019 | Visit | | JOSE ALBERTO Linder [address] | | | | | | [place] | | | | | | [place] [address] | | | | | | [phone] | | | | | | | | +--------+---------+ + + + documented as of this encounter Visit Diagnoses + + | Diagnosis | + + | CMC arthritis, thumb, degenerative - Primary Localized osteoarthrosis not specified | | whether primary or secondary, hand | + + documented in this encounter
--- OUTSIDE RECORDS SUMMARY | ~2019-04-12 | XMS | Encounter Summary ---
Demographics + + + | Address | [address] | | | [place] [address] | + + + | Home Phone [...] | Author | [facility] | | | and [place] | + + + | Organization | [facility] | [...] | | | | | [place] [address] | | + + + + + | Hunter Jackson | ECON | [place] | | + + + + + | Wes Jackson | ECON | [place], [place] | | + + + + + | Oziel Jackson | ECON | [place], [place] | | + + + + + Care Team Providers + +------+ + | Care Tax Consultant Name | Role | Phone | [...] | 07/17/ | Refill | [facility] | Rodolfo Cruz, | Medication Refill | | 2016 | | MEDICINE [place] | [address] | | | | | [address] | [place] | | | | | [place] | [address] | | | | | [address] | | | | | | [phone] | | | +--------+--------+ + + + [...] [address]REET[place] | | | | | | [address] | | | | | | | | +--------+---------+ + + + | 11/21/ | Office | Cardiology | Yesi, | | | 2019 | Visit | | JOSE ALBERTO [address] | | | | | | [place] | | | | | | [place] [address] | | | | | | [phone] | | | | | | | | +--------+---------+ + + + documented as of this encounter Visit Diagnoses Not on filedocumented in this encounter"
--- OUTSIDE RECORDS SUMMARY | ~2019-04-12 | XMS | Encounter Summary ---
Demographics + + + | Address | [address] | | | [place] [address] | + + + | Home Phone | | + + + | Preferred Language | Unknown | + + + | Marital Status | | + + + | Scientology Affiliation | Unknown | + + + | Race | Unknown | + + + | Ethnic Group | Unknown | + + + Author + + + | Author | [facility] | | | and [place] | + + + | Organization | [facility] | | | and [...] | | | | | [place] [address] | | + + + + + | Hunter Jackson | ECON | [place] | | + + + + + | Wes Jackson | ECON | [place], [place] | | + + + + + | Oziel Jackson | ECON | [place], [place] | | + + + + + Care Team Providers + +------+ + | Care Oiling Machine Operator Name | Role | Phone | + +------+ + | Rodolfo Cruz MD | PCP | | + +------+ + Encounter Details +--------+ + + + + | Date | Type | Department | Care Team | Description | +--------+ + + + + | 11/02/ | Orders Only | [facility] | Buffy Cormier, | Other specified | | 2014 | | MEDICINE [address] | [address] | [address] | | | | [place] | | (Primary Dx) | | | | [place] [address] | | | | | | [phone] | | | +--------+ + + + [...] 2019 | Visit | | MD [address] | | | | | | [place] | | | | | | [address] | | | | | | | | +--------+---------+ + + + | 11/21/ | Office | Cardiology | Yesi, | | | 2019 | Visit | | JOSE ALBERTO Linder [address] | | | | | | [place], | | | | | | [place] [address] | | | | | | [phone] | | | | | | | | +--------+---------+ + + + documented as of this encounter Results TSH (03/15/2015 12:13 PM PST) + + + + + + | Component | Value | Ref Range | Performed | Pathologist | | | | | At | Signature | + + + + + + | TSH | 0.90Comment: All TSH | 0.34 - 5.60 | [...] [address] | [place] | [phone] | | [facility] | | [address] | | | - LABORATORY | | | | + + + + + documented in this encounter Visit Diagnoses + + | Diagnosis | + + | Other specified hypothyroidism - Primary | + + documented in this encounter"
--- OUTSIDE RECORDS SUMMARY | ~2019-04-12 | XMS | Encounter Summary ---
Demographics + + + | Address | [address] | | | [place] [address] | + + + | Home Phone [...] | Author | [facility] | | | and [place] | + + + | Organization | [facility] | | | and [place] | + + + | Address | Unknown | + + + | Phone | Unavailable | + + + Support + + + + + | Name | Relationship | Address | Phone | + + + + + | Osmin Jackson | ECON | [address] | | | | | [place] [address] | | + + + + + | Hunter Jackson | ECON | [place] | | + + + + + | Wes Jackson | ECON | [place], [place] | | + + + + + | Oziel Jackson | ECON | [place], [place] | | + + + + + Care Team Providers + +------+ + | Care Production Painter Name | Role | Phone | + +------+ + | Sugar Cruz MD | PCP | | + +------+ + Reason for Visit + + + | Reason | Comments | + + + | Follow-up | last one was about 2weeks ago, she had a couple in March | + + + Evaluate & Treat (Routine) +--------+ + + + + + | Status | Reason | Specialty | Diagnoses / | Referred By | Referred To | | | | | Procedures | Contact | Contact | +--------+ + + + + + | Closed | Specialty | Otolaryngolog | Diagnoses | Morasch, | Zion Valencia | | | Services | y | Epistaxis | Sugar Reilly MD | MD Gabriel [address] | | | Required | | | [address] | | | | | | [address] [place] | [address] | | | | | | [place], [place] | [place], | | | | | | [address] | [place] [address] | | | | | | Phone: | Phone: | | | | | | [phone] | [phone] | | | | | | Fax: | Fax: | | | | | | [phone] | [phone] | +--------+ + + + + + Encounter Details +--------+---------+ + + + | Date | Type | Department | Care Team | Description | +--------+---------+ + + + | 06/29/ | Office | [facility] | Zion Valencia MD | Epistaxis (Primary | | 2015 | Visit | OTOLARYNGOLOGY [address] | [address] | Dx) | | | | [address] | [address] [place], | | | | | [place] | [place] [address] | | | | | [address] | [phone] | | | | | [phone] | | | +--------+---------+ + + + [...] + + + | Blood Pressure | 140/74 | 06/29/2014 11:22 AM | | | | | PST [...] Weight | 84.4 kg (186 lb) | 06/29/2014 11:22 AM | | | | | PST | | + + + + + | Height | 167.6 cm (5' 6") | 06/29/2014 11:22 AM | | | | | PST | | + + + + + | Body Mass Index | 30.02 | 06/29/2014 11:22 AM | | | | | PST | | + + + + + documented in this encounter Progress Notes Zion Valencia MD - 06/29/2014 11:54 AM PST [facility] OTOLARYNGOLOGY [address] [facility] [address] OFFICE NOTE ZION AVLENCIA MD Patient: JACLYN JACKSON Admitting: MR #: [id number] LOC: PT TYPE: Adm Date: 06/29/2014 : 1935 DATE OF VISIT: 06/29/2014. HISTORY: The patient a number of nosebleeds back in 03/2014. She had been doing quite we ll until here about 2 weeks ago. She had another fairly good nosebleed from the left nasal passage. She comes in for a followup visit. She is not having any other problems at the current time. The patient has no difficulty with her vocal function or with swallowing. PHYSICAL EXAMINATION: GENERAL: Shows an alert 78-year-old female patient. She is communicating well. Her voic e quality is good. SKIN: The skin of the face, nose and ears all appear to be healthy. HEENT: Parotid, sub mandibular gland areas are smooth. Facial movement is symmetrical, without any weakness no juan. Ear canals are open, they are clean. Drums are clear. No middle ear fluid or diseas e is noted. Nasal passages: There is a scab with a prominent vessel elevated off of the m ucous membrane in the left little's triangle. Right side of the nose: There is no mass or lesions or abnormal blood vessels on the septum. 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 The left side of the nose was then sprayed well with some Adonis-Synephrine a nd topical Xylocaine. Floor of the mouth, buccal mucosa, hard palate, teeth, lips, and gu ms are healthy. No mass seen in the oropharynx and posterior pharyngeal wall was smooth. Tongue and soft palate are smooth and move symmetrically. NECK: There are no masses or lymphadenopathy. Thyroid area is smooth and trachea is midl ine. Good range of motion of the neck without any pain or discomfort noted. DESCRIPTION OF PROCEDURE: The left nasal passage was then painted with some viscous Xyloc kj. Following this, the area was treated with silver nitrate. Excess was removed. It w as treated about 3 times, and this is the prominent blood vessel is noted. Once completed, some topical antibiotic was applied. DISCHARGE INSTRUCTIONS: The patient was given instructions on epistaxis, including applyi ng A and D ointment to this area twice a day for the next month. If there are further prob lems, she will recheck with ENT. ZION VALENCIA MD Dictated by ZION VALENCIA MD 06/29/2014 11:54:30 Transcribed on 06/29/2014 12:05:14 by johnny velázquez# [id number] Confirmation #: [id number] cc: SUGAR CRUZ MD Zion porras MD - 06/29/2014 11:51 AM PSTSee dictation # [id number] signed by Zion Valencia MD at 06/29/2014 11:55 AM PSTdocumented in th is encounter Plan of Treatment +--------+---------+ + + + | Date | Type | Specialty | Care Team | Description | +--------+---------+ + + + | 06/02/ | Office | Orthopedic Surgery | Ulysses Jensen, | | | 2019 | Visit | | MD [address] | | | | | | [place], [place] | | | | | | [address] | | | | | | | | +--------+---------+ + + + | 11/21/ | Office | Cardiology | Yesi, | | | 2019 | Visit | | JOSE ALBERTO Linder [address] | | | | | | [place], | | | | | | [place] [address] | | | | | | [phone] | | | | | | | | +--------+---------+ + + + documented as of this encounter Visit Diagnoses + + | Diagnosis | + + | Epistaxis - Primary | + + documented in this encounter
--- OUTSIDE RECORDS SUMMARY | ~2019-04-12 | XMS | Encounter Summary ---
Demographics + + + | Address | [address] | | | [place] [address] | + + + | Home Phone [...] | Author | [facility] | | | and [place] | + + + | Organization | [facility] | | | and [place] | + + + | Address | Unknown | + + + | Phone | Unavailable | + + + Support + + + + + | Name | Relationship | Address | Phone | + + + + + | Osmin Jackson | ECON | [address] | | | | | [place] [address] | | + + + + + | Hunter Jackson | ECON | [place] | | + + + + + | Wes Jackson | ECON | [place], [place] | | + + + + + | Oziel Jackson | ECON | [place], [place] | | + + + + + Care Team Providers + +------+ + | Care Account Installer Name | Role | Phone | [...] + | 08/06/ | Telephone | [facility] | Yesi, | Blood Pressure Check | | 2015 | | CARDIOLOGY [address] | JOSE ALBERTO Linder [address] | (Screening) | | | | [place], | [place], | | | | | [place] [address] | [place] [address] | | | | | [phone] | [phone] | | | | | | | [...] STREETER | | | | | | [address] | | | | | | | | +--------+---------+ + + + | 11/21/ | Office | Cardiology | Yesi, | | | 2019 | Visit | | JOSE ALBERTO [address]inder [address] | | | | | | [place] | | | | | | [place] [address] | | | | | | [phone] | | | | | | | | +--------+---------+ + + + documented as of this encounter Visit Diagnoses Not on filedocumented in this encounter"
--- OUTSIDE RECORDS SUMMARY | ~2019-04-12 | XMS | Encounter Summary ---
Demographics + + + | Address | [address] | | | [place] [address] | + + + | Home Phone [...] [facility] | | | and [place] | + + + | Organization | [facility] | | [...] | | | | | [place] [address] | | + + + + + | Hunter Jackson | ECON | [place] | | + + + + + | Wes Jackson | ECON | [place], [place] | | + + + + + | Oziel Jackson | ECON | [place], [place] | | + + + + + Care Team Providers + +------+ + | Care Rag Inspector Name | Role | Phone | + +------+ + | Rodolfo Cruz MD | PCP | | + +------+ + Encounter Details +--------+ + + + + | Date | Type | Department | Care Team | Description | +--------+ + + + + | 03/23/ | Hospital | [facility] | Rodolfo Cruz, | Pre-procedure lab | | 2015 | Encounter | [facility] | MD [address] | exam | | | | [address] [place] | [place], [place] | | | | | [place] | [address] | | | | | [address] | | | | | | [phone] | | | +--------+ + + + [...] STREETER | | | | | | [id number] | | | | | | | | +--------+---------+ + + + | 11/21/ | Office | Cardiology | Yesi, | | | 2019 | Visit | | JOSE ALBERTO [address] | | | | | | [place] | | | | | | [place] [address] | | | | | | [phone] | | | | | | | | +--------+---------+ + + + documented as of this encounter Procedures + +--------+ + + + | Procedure Name | Priori | Date/Time | Associated Diagnosis | Comments | | | ty | | | | + +--------+ + + + | EGFR | Routin | 03/23/2015 | Pre-procedure lab | Results for this | | | e | 11:03 AM | exam | procedure are in the | | | | PST | | results section. | + +--------+ + + + | CREATININE | Routin | 03/23/2015 | Pre-procedure lab | Results for this | | | e | 11:03 AM | exam | procedure are in the | | | | PST | | results section. | + +--------+ + + + | COMPREHENSIVE | Routin | 03/23/2015 | Pre-procedure lab | Results for this | | METABOLIC PANEL | e | 11:03 AM | exam | procedure are in the | | | | PST | | results section. | + +--------+ + + + documented in this encounter Results Creatinine (03/23/2015 11:03 AM PST) + + + + + + | Component | Value | Ref Range | Performed | Pathologist | | | | | At | Signature | + + + + + + | Creatinine | 0.59Comment: IDMS | 0.50 - 1.00 | REFERENCE | | | | traceable | mg/dL | LAB [facility] | | | | creatinineTesting | | | | | | Performed: [facility], [address] | | | | | | [address], [place] | | | | | | [address] | | | | + + + [...] [address] | [place] [address] | [phone] | + + + + + Comprehensive Metabolic Panel (03/23/2015 11:03 AM PST) [...] mL/min/1.73m2 | [facility] | | | [facility] | RATE,ESTIMATED | | MEDICAL | | | | mL/min/1.27t2Ghmq than | | CENTER - | | [...] + | [address] | [address] | [place] | [phone] | | [facility] | | [address] | | | - LABORATORY | | [...] | | | | | [facility], [address], | | | | | | [place] [address] | | | | + + + [...] [address] | [place] [address] | [phone] | + + + + + documented in this encounter Visit Diagnoses + + | Diagnosis | + + | Pre-procedure lab exam Pre-procedural laboratory examination | + + documented in this encounter"
--- OUTSIDE RECORDS SUMMARY | ~2019-04-12 | XMS | Encounter Summary ---
Demographics + + + | Address | [address] | | | [place] [address] | + + + | Home Phone | | + + + | Preferred Language | Unknown | + + + | Marital Status | | + + + | Sikhism Affiliation | Unknown | + + + | Race | Unknown | + + + | Ethnic Group | Unknown | + + + Author + + + | Author | [facility] | | | and [place] | + + + | Organization | [facility] | | | and [place] | + + + | Address | Unknown | + + + | Phone | Unavailable | + + + Support + + + + + | Name | Relationship | Address | Phone | + + + + + | Osmin Jackson | ECON | [address] | | | | | [place] [address] | | + + + + + | Hunter Jackson | ECON | [place], [place] | | + + + + + | Wes Jackson | ECON | [place], [place] | | + + + + + | Oziel Jackson | ECON | [place], [place] | | + + + + + Care Team Providers + +------+ + | Care Chief Meter Reader Name | Role | Phone | + [...] [address] | | | | | [place], | [place], | | | | | [place] [address] | [place] [address] | | | | | [phone] | [phone] | | | | | | | [...] | | | | | | [place] [address] | | | | | | [phone] | | | | | | | [...] Comment | + + | [facility] | + + + +---------+ + [...] Comment | + + | [facility] | + + + +---------+ + + [...] Comment | + + | [facility] | + + + +---------+ + + [...] Comment | + + | [facility] | + + + +---------+ + + [...] Comment | + + | [facility] | + + + +---------+ + + [...] Comment | + + | [facility] | + + + +---------+ + + [...] Comment | + + | [facility] | + + + +---------+ + + [...] Comment | + + | [facility] | + + + +---------+ + + [...] Comment | + + | [facility] | + + + +---------+ + + [...] Comment | + + | [facility] | + + + +---------+ + + [...] Comment | + + | [facility] | + + + +---------+ + + [...] Comment | + + | [facility] | + + + +---------+ + + [...] Comment | + + | [facility] | + + + +---------+ + + [...] Comment | + + | [facility] | + + + +---------+ + + [...] Comment | + + | [facility] | + + + +---------+ + + [...] Comment | + + | [facility] | + + + +---------+ + + [...] Comment | + + | [facility] | + + + +---------+ + + [...] Comment | + + | [facility] | + + + +---------+ + + [...] Comment | + + | [facility] | + + + +---------+ + + [...] Comment | + + | [facility] | + + + +---------+ + + [...]
--- OUTSIDE RECORDS SUMMARY | ~2019-04-12 | XMS | Encounter Summary ---
Demographics + + + | Address | [address] | | | [place] [address] | + + + | Home Phone [...] + | Author | [facility] | | | and [place] | + + + | Organization | [facility] | | [...] | | | | | [place] [address] | | + + + + + | Hunter Jackson | ECON | [place], [place] | | + + + + + | Wes Jackson | ECON | [place], [place] | | + + + + + | Oziel Jackson | ECON | [place], [place] | | + + + + + Care Team Providers + +------+ + | Care China And Silverware Salesperson Name | Role | Phone | + [...] + + | 06/18/ | Telephone | [facility] [place] | Yesi, | Appointment | | 2016 | | [address] | JOSE ALBERTO Linder [address] | | | | | [place], | [place], | | | | | [place] [address] | [place] [address] | | | | | [phone] | [phone] | | | | | | | [...] STREETER | | | | | | [address] | | | | | | | | +--------+---------+ + + + | 11/21/ | Office | Cardiology | Yesi | | | 2019 | Visit | | JOSE ALBERTO Linder [address] | | | | | | [place] | | | | | | [place] [address] | | | | | | [phone] | | | | | | | | +--------+---------+ + + + documented as of this encounter Visit Diagnoses Not on filedocumented in this encounter"
--- OUTSIDE RECORDS SUMMARY | ~2019-04-12 | XMS | Encounter Summary ---
Demographics + + + | Address | [address] | | | [place] [address] | + + + | Home Phone | | + + + | Preferred Language | Unknown | + + + | Marital Status | | + + + | Sabianist Affiliation | Unknown | + + + | Race | Unknown | + + + | Ethnic Group | Unknown | + + + Author + + + | Author | [facility] | | | and [place] | + + + | Organization | [facility] | | | and [...] | | | | | [place] [address] | | + + + + + | Hunter Jackson | ECON | [place] | | + + + + + | Wes Jackson | ECON | [place], [place] | | + + + + + | Oziel Jackson | ECON | [place], [place] | | + + + + + Care Team Providers + +------+ + | Care Drafter (Cad) Electrical Name | Role | Phone | + [...] + | 11/07/ | Telephone | [facility] | Irina Simms, | Blood Pressure Check | | 2015 | | CARDIOLOGY [address] | [address] | (Screening) | | | | [place], | [place], | | | | | [place] [address] | [place] [address] | | | | | [phone] | [phone] | | | | | | | [...] | | | | | | [place] [address] | | | | | | [phone] | | | | | | | | +--------+---------+ + + + documented as of this encounter Visit Diagnoses Not on filedocumented in this encounter"
--- OUTSIDE RECORDS SUMMARY | ~2019-04-12 | XMS | Encounter Summary ---
Demographics + + + | Address | [address] | | | [place] [address] | + + + | Home Phone [...] | Author | [facility] | | | and [place] | + + + | Organization | [facility] | | | and [place] | + + + | Address | Unknown | + + + | Phone | Unavailable | + + + Support + + + + + | Name | Relationship | Address | Phone | + + + + + | Osmin Jackson | ECON | [address] | | | | | [place] [address] | | + + + + + | Hunter Jackson | ECON | [place] | | + + + + + | Wes Jackson | ECON | [place], [place] | | + + + + + | Oziel Jackson | ECON | [place], [place] | | + + + + + Care Team Providers + +------+ + | Care Agricultural Engineering Technician Name | Role | Phone | + +------+ + | Kellie Gunderson | PCP | | + +------+ + Encounter Details +--------+ + + + + | Date | Type | Department | Care Team | Description | +--------+ + + + + | 09/25/ | Abstract | [facility] | Irina Simms, | | | 2016 | | CARDIOLOGY [address] | MD [address] | | | | | [place], | [place], | | | | | [place] [address] | [place] [address] | | | | | [phone] | [phone] | | | | | | | [...] STREETER | | | | | | [address] | | | | | | | | +--------+---------+ + + + | 11/21/ | Office | Cardiology | Yesi, | | | 2019 | Visit | | JOSE ALBERTO Linder [address] | | | | | | [place], | | | | | | [place] [address] | | | | | | [phone] | | | | | | | [...]
--- OUTSIDE RECORDS SUMMARY | ~2019-04-12 | XMS | Encounter Summary ---
Demographics + + + | Address | [address] | | | [place] [address] | + + + | Home Phone [...] | Author | [facility] | | | and [place] | + + + | Organization | [facility] | | | [...] [place] | | | | | [place] [address] | | + + + + + | Hunter Jackson | ECON | [place] | | + + + + + | Wes Jackson | ECON | [place], [place] | | + + + + + | Oziel Jackson | ECON | [place], [place] | | + + + + + Care Team Providers + +------+ + | Care Negative Stripper Name | Role | Phone | + [...] | pressure low, | | | | [place], | [place], | question about | | | | [place] [address] | [place] [address] | medications) | | | | [phone] | [phone] | | | | | | | [...] STREETER | | | | | | [id number] | | | | | | | | +--------+---------+ + + + | 11/21/ | Office | Cardiology | eYsi, | | | 2019 | Visit | | JOSE ALBERTO Linder [address] | | | | | | [place], | | | | | | [place] [address] | | | | | | [phone] | | | | | | | | +--------+---------+ + + + documented as of this encounter Visit Diagnoses Not on filedocumented in this encounter"
--- OUTSIDE RECORDS SUMMARY | ~2019-04-12 | XMS | Encounter Summary ---
Demographics + + + | Address | [address] | | | [place] [address] | + + + | Home Phone | | + + + | Preferred Language | Unknown | + + + | Marital Status | | + + + | Episcopal Affiliation | Unknown | + + + | Race | Unknown | + + + | Ethnic Group | Unknown | + + + Author + + + | Author | [facility] | | | and [place] | + + + | Organization | [facility] | | [...] | | | | | [place] [address] | | + + + + + | Hunter Jackson | ECON | [place], [place] | | + + + + + | Wes Jackson | ECON | [place], [place] | | + + + + + | Oziel Jackson | ECON | [place], [place] | | + + + + + Care Team Providers + +------+ + | Care Front Desk Coordinator Name | Role | Phone | [...] Nuclear | | | | | | [place], | Medicine | | | | | Hyperlipidem | Niyah, FOOD DEHYDRATOR OPERATOR | [address] | | | | | ia, mixed | [address] | [place], | | | | | Chest pain, | [place] | [place] | | | | | unspecified | [place], | [address] | | | | | type | [place] | Phone: | | | | | Procedures | [address] | [phone] | | | | | [place] Nuclear | Phone: | Fax: | | | | | Stress Test | [phone] | [phone] | | | | | (Vasodilator | Fax: | | | | | | ) CHG | [phone] | | | | | | MYOCARDIAL | | | | | | | SPECT | | | | | | | MULTIPLE | | | | | | | STUDIES [place] | | | | | | | CV STRS TST | | | | | | | XERS&/OR RX | | | | | | | CONT ECG W/O | | | | | | | I&R [place] | | | | | | | [...] | Essential | Yesi, | [address] | | | | | hypertension | JOSE ALBERTO Harry | [place], | | | | | with goal | [address] | [place] | | | | | blood | [place] | [address] | | | | | pressure | [place], | Phone: | | | | | less than | [place] | [phone] | | | | | 130/80 | [address] | Fax: | | | | | [place] | Phone: | [phone] | | | | | Procedures | [phone] | | | | | | ECHO | Fax: | | | | | | Complete [place] | [phone] | | | | | | ECHO HEART | | | | | | | XTHORACIC,CO | | | | | | | MPLETE W | | | | | | | DOPPLER [place] | | | | | | | [...] | | | Procedures | E[address]OGIO | [address] | | | | | FUP - | [address] | [place], | | | | | ESTABLISHED | [place], | [place] [address] | | | | | SUW PT | [place] [address] | Phone: | | | | | | Phone: | [phone] | | | | | | [phone] | Fax: | | | | | | Fax: | [phone] | | | | | | [phone] | | +--------+--------+ + + + + Encounter Details +--------+---------+ + + + | Date | Type | Department | Care Team | Description | +--------+---------+ + + + | 07/03/ | Office | [facility] | [place], | Essential | | 2017 | Visit | CARDIOLOGY [address] | JOSE ALBERTO Harry [address] | hypertension with | | | | [place], | [place], | [place] blood pressure | | | | [place] [address] | [place] [id number] | less than 130/80 | | | | [phone] | [phone] | (Primary Dx); | | | | [...] been very active. She was going to [place] 3 times a week but stopped the last 2 months . She has had exertional chest disomfort.This also happens at rest and almost daily. It las t a couple of minutes at the time. 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 She has not had any lightheadedness or [...] o n the RaNITidine HCl (RANITIDINE ACID MICROBIAL SPECIALIST PO) Take 1 tablet by mouth Daily. [...] RESULTS reviewed during visit today primarily from [facility]: LIPID Lab Results Component Value Date CHOL [...] PLTEX 381 05/08/2016 I reviewed records from [facility] for emergency department visit on 04/12 [...] A. Seen in the emergency room at [facility] for chest pain. She was schedule [...] failure.She is in a class II of [employer] [employer] functional class. There is no [...] this chart may have been created with [employer] voice recognition software. Occasi onal wrong-word or [...] | | | | | | [place] [address] | | | | | | [phone] | | | | | | | [...] with a normal left ventricular | [facility] | | size and wall thickness. Preserved left ventricular systolic | [facility] | | function. LVEF by gated SPECT 75%. Signed by: Christopher | - IMAGING | | MD Mendez [facility] 07/16/2016, 13:12 | | + + + + + + | Narrative | Performed At | + + + | NUCLEAR MEDICINE STRESS TEST REPORT | [facility] | | Patient Name: Jaclyn Jackson Study Date: 07/16/2016 Primary Care | [facility] | | Provider: FLORA Morgan [...] | + + + + + | [address] | [address] | [place] | [phone] | | [facility] | | [address] | | | - IMAGING | | [...] Room Number DEION Patient Number | [facility] | | [id number] Date of Study 07/16/2016 Visit Number | - IMAGING | | [id number] Referring | | | Physician YG HARRY Number Date of 1935 | | | Certified Nursing Assistant JACEYWALKERGold BEVERLEY SALLY Age | | | 80 year(s) Interpreting MENDEZ WHITE | | | Operating Systems Specialist | | | CHRISTOPHER ARECHIGA MD Gender [...] | 50.56 ml | | | EF Jcjtjxymo65% Left Ventricle Diastolic Dimension: 5.07 | | [...] Volume: 50.56 ml | | | EF Nvqrqucew07% | | | | | | Left [...] Room Number DEION | | Patient Number [id number] Date of Study 07/16/2016 Visit Number | | [id number] Referring Physician YG HARRY Number | | Date of 1935 Certified Nursing Assistant BAUDILIO BEVERLEY [facility] Age | | 80 year(s) Interpreting MENDEZ WHITE | | Operating Systems Specialist CHRISTOPHER ARECHIGA MD Gender Female | | [...] LA Volume: 50.56 ml | | EF Ntbzyshvh87% Left Ventricle Diastolic Dimension: 5.07 cm | [...] LA Volume: 50.56 ml | | EF Gxmbxwirt53% | | | | Left Ventricle | [...] + | [facility] | [address] | [place] | [phone] | | [facility] | | [address] | | | - IMAGING | | [...] by | | | | | | CHIRSTOPHER ARECHIGA MD | | | | | | ([id number]) on 07/04/2016 | | | | | [...]
--- OUTSIDE RECORDS SUMMARY | ~2019-04-12 | XMS | Encounter Summary ---
Demographics + + + | Address | [address] | | | [place] [address] | + + + | Home Phone | | + + + | Preferred Language | Unknown | + + + | Marital Status | | + + + | Scientology Affiliation | Unknown | + + + | Race | Unknown | + + + | Ethnic Group | Unknown | + + + Author + + + | Author | [facility] | | | and [place] | + + + | Organization | [facility] | | | and [...] | | | | | [place] [address] | | + + + + + | Hunter Jackson | ECON | [place] | | + + + + + | Wes Jackson | ECON | [place], [place] | | + + + + + | Oziel Jackson | ECON | [place], [place] | | + + + + + Care Team Providers + +------+ + | Care Radiator Mechanic Name | Role | Phone | [...] Description | +--------+--------+ + + + | 11/06/ | Refill | [facility] | Rodolfo Cruz, | Medication Refill | | 2016 | | MEDICINE [address] | [place] [address] | | | | | [place] | [place] | | | | | [place] [address] | [address] | | | | | [phone] | | | +--------+--------+ + + + [...] | | | | | | [place] [address] | | | | | | [phone] | | | | | | | | +--------+---------+ + + + documented as of this encounter Visit Diagnoses + + | Diagnosis | + + | Hyperglycemia - Primary Other abnormal glucose | + + documented in this encounter"
--- OUTSIDE RECORDS SUMMARY | ~2019-04-12 | XMS | Encounter Summary ---
Demographics + + + | Address | [address] | | | [place] [address] | + + + | Home Phone | | + + + | Preferred Language | Unknown | + + + | Marital Status | | + + + | Mosque Affiliation | Unknown | + + + | Race | Unknown | + + + | Ethnic Group | Unknown | + + + Author + + + | Author | [facility] | | | and [place] | + + + | Organization | [facility] | | | and [place] | + + + | Address | Unknown | + + + | Phone | Unavailable | + + + Support + + + + + | Name | Relationship | Address | Phone | + + + + + | Osmin Jackson | ECON | [address] | | | | | [place] [address] | | + + + + + | Hunter Jackson | ECON | [place] | | + + + + + | Wes Jackson | ECON | [place], [place] | | + + + + + | Oziel Jackson | ECON | [place], [place] | | + + + + + Care Team Providers + +------+ + | Care Hot Plate Plywood Press Offbearer Name | Role | Phone | + +------+ + | Kellie Gunderson | PCP | | + +------+ + Encounter Details +--------+ + + + + | Date | Type | Department | Care Team | Description | +--------+ + + + + | 06/01/ | Abstract | [facility] [place] | [place]i, | | | 2018 | | CARDIOLOGY [address] | JOSE ALBERTO [address] | | | | | [place], | [place], | | | | | [place] [address] | [place] [address] | | | | | [phone] | [phone] | | | | | | | [...] W | | | | | | [place] | | | | | | [place] [address] | | | | | | [phone] | | | | | | | [...]
--- OUTSIDE RECORDS SUMMARY | ~2019-04-12 | XMS | Encounter Summary ---
Demographics + + + | Address | [address] | | | [place] [address] | + + + | Home Phone [...] + + | Author | [facility] | | | and [place] | + + + | Organization | [facility] | [...] | | | | | [place] [address] | | + + + + + | Hunter Jackson | ECON | [place] | | + + + + + | Wes Jackson | ECON | [place], [place] | | + + + + + | Oziel Jackson | ECON | [place], [place] | | + + + + + Care Team Providers + +------+ + | Care Machinist Job Setter Name | Role | Phone | + +------+ + | Rodolfo Cruz MD | PCP | | + +------+ + Reason for Visit + + + | Reason | Comments | + + + | Dizziness | | + + + | Hearing Loss | in left ear | + + + Encounter Details +--------+---------+ + + + | Date | Type | Department | Care Team | Description | +--------+---------+ + + + | 03/25/ | Office | [facility] | Alejandra Ferris MS | Dizziness (Primary | | 2011 | Visit | AUDIOLOGY AND | [facility] [address] | Dx) | | | | [facility] | [address] [facility] | | | | | [address] | [place] [address] | | | | | [address] [facility] | [phone] | | | | | [place] [address] | | | | | | [phone] | | | +--------+---------+ + + + [...] documented as of this encounter Progress Notes Alejandra Ferris, CCC-A - 03/25/2012 12:56 PM PSTPatient Reported being dizzy upon waking up one morning. [place] like the room was spinning. 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 A full hearing evaluation was carried out and unruly ent was scheduled to see Dr. Davis, ENT. Please see audiogram for hearing test results.Sariah ctronically signed by Alejandra Ferris, CCC-A at 03/25/2012 1:00 PM Zion Rosas MD - 1 05/25/2011 12:00 AM [facility] ENT AND AUDIOLOGY [address] [place], [place] [address] FAX: [phone] OFFICE VISIT The patient comes in because she has had a couple of episodes where she had a lot of dizzin ess. She describes the episodes as problems when she would sometimes look down or look up, she would get a spinning type of sensation. This would go on and off probably for about a w wilton. It then subsided and then occurred again here back about 3 weeks ago. She also notes a t times when she would roll over in bed she would get the spinning feeling. She would feel a bit lightheaded. No nausea or seasickness and is concerned because of these symptoms. She has a history of a lot of middle ear disease in the left ear as a child, and she has alway s heard better in her right ear as compared to the left. No other ENT complaints at the [facility] rent time. EXAMINATION GENERAL: Shows an alert 76-year-old female patient. She is communicating well. Her voice q uality is good. HEENT: Skin of the face, nose and ears all appear to be healthy. Her parotid/submandibular glands were smooth. Facial movement was symmetric without any weakness noted. Ear canals ar e open. They are clear. Her left drum has a lot of scar tissue noted. The right drum appear s clear and healthy. Nasal passages: No obstruction. No mass or lesion noted. Floor of the mouth, buccal mucosa, hard palate, teeth, lips and gums are healthy. No mass see in the francois pharynx. Posterior pharyngeal wall is smooth. Tongue and soft palate are smooth and move sy mmetrically. NECK: There are no masses or lymphadenopathy present. Thyroid gland was carline h and trachea is midline. Good range of motion of the neck without any pain or discomfort n oted. Tympanograms were normal A-shaped tympanograms, although there is better movement in the ri ght as compared to the left. 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 She hears at 25 dB in the right ear and 45 in the left ear. Spe ech discrimination scores are 100% bilaterally. IMPRESSION: BENIGN PAROXYSMAL POSITIONAL VERTIGO. PLAN: The patient will call our office if she has further problems and will be scheduled to have an Lolita maneuver. She was advised she could consider to use a hearing aid in the lef t ear if she feels she is missing too much on her hearing. Zion Davis MD / [facility] JOB #: [id number] signed by Zion Davis MD at 03/25/2012 2:19 PM PSTdocumentmaegan d in this encounter Plan of Treatment +--------+---------+ + + + | Date | Type | Specialty | Care Team | Description | +--------+---------+ + + + | 06/02/ | Office | Orthopedic Surgery | Ulysses Jensen, | | | 2019 | Visit | | MD Danny FLANNERY | | | | | | [place] | | | | | | [id number] | | | | | | | | +--------+---------+ + + + | 11/21/ | Office | Cardiology | Yesi, | | | 2019 | Visit | | JOSE ALBERTO [address] | | | | | | [place], | | | | | | [place] [address] | | | | | | [phone] | | | | | | | | +--------+---------+ + + + documented as of this encounter Visit Diagnoses + + | Diagnosis | + + | Dizziness - Primary Dizziness and giddiness | + + documented in this encounter"
--- OUTSIDE RECORDS SUMMARY | ~2019-04-12 | XMS | Encounter Summary ---
Demographics + + + | Address | [address] | | | [place] [address] | + + + | Home Phone [...] | Author | [facility] | | | and [place] | + + + | Organization | [facility] | [...] [place] | | | | | [place] [address] | | + + + + + | Hunter Jackson | ECON | [place] | | + + + + + | Wes Jackson | ECON | [place], [place] | | + + + + + | Oziel Jackson | ECON | [place], [place] | | + + + + + Care Team Providers + +------+ + | Care Associate Director Regulatory Affairs Name | Role | Phone | + [...] + + | 10/16/ | Hospital | [facility] | Yesi, | | | 2018 | Encounter | MED CTR NUCLEAR | JOSE ALBERTO Linder [address] | | | | | MEDICINE [address] | [place], | | | | | [place], | [place] [address] | | | | | [place] [address] | [phone] | | | | | [phone] | | | | | | | Gas Utility WorkerRenetta | | +--------+ + + + + [...] [place]REET[place] | | | | | | [address] | | | | | | | | +--------+---------+ + + + | 11/21/ | Office | Cardiology | Yesi, | | | 2019 | Visit | | JOSE ALBERTO [address] | | | | | | [place], | | | | | | [place] [address] | | | | | | [phone] | | | | | | | [...] PDT | | | | | Starting [facility] 10/16/17 at 1416, For | | | [...] | | | | | | Starting [facility] 10/16/17 at 1416, For | | | | | | | 1 dose, Nuclear Medicine | | | | | | + +-------+ + +---+---+ +---+---+ | | | +---+---+ documented in this encounter"
--- OUTSIDE RECORDS SUMMARY | ~2019-04-12 | XMS | Encounter Summary ---
Demographics + + + | Address | [address] | | | [place] [address] | + + + | Home Phone [...] | [facility] | | | and [place] | + + + | Organization | [facility] | | [...] [place] | | | | | [place] [address] | | + + + + + | Hunter Jackson | ECON | [place] | | + + + + + | Wes Jackson | ECON | [place], [place] | | + + + + + | Oziel Jackson | ECON | [place], [place] | | + + + + + Care Team Providers + +------+ + | Care Television Mechanic Name | Role | Phone | [...] | Valvular heart | | | | [place], | [place], | disease; [place]; | | | | [place] [address] | [place] [address] | Essential | | | | [phone] | [phone] | hypertension with | | | | | | goal blood pressure | | | | | | less than 130/80; | | | | | | Coronary artery | | | | | | disease involving | | | | | | tribe coronary | | | | | | artery of tribe | | | | | | heart with unstable | | | | | | angina pectoris | | | | | | ([facility]); Chest pain, | | | | | [...] cervical Cervical radiculopathy Coronary artery disease involving tribe coronary artery of tribe heart with unstable angina pectoris Stress hyperglycemia [...] Lateral leads Confirmed by CHRISTOPHER SIMMS MD ([id number]) on 10/16/2017 4:36:18 PM LAB RESULTS reviewed during visit today primarily from [facility]: LIPID Lab Results Component Value Date [...] 63 09/18/2016 I reviewed records from [facility] for office visit on 10/2017 whic h is summarized in the HPI. RESULTS- I reviewed reports from [facility]: No results found. Above data and testing is reviewed this visit; testing below is historical data unless othe rwise specified. ASSESSMENT: 1. Coronary artery disease A. Seen at [facility] they had EKG and sent her home stating it was GERD B. Seen in the emergency room at [facility] for chest pain. Sh maegan was schedule for stress test and discharged home. C. Stress Test 05/16/16, is maximal asymptomatic stress test, [facility] very poor function status, achieving maximal [...] central AI, no , trace TR, trace ND, normal aorta other than mild calcification at [...] this chart may have been created with [employer] voice recognition software. Occasi onal wrong-word or [...] [place]REET[place] | | | | | | [address] | | | | | | | | +--------+---------+ + + + | 11/21/ | Office | Cardiology | Yesi, | | | 2019 | Visit | | JOSE ALBERTO [address] | | | | | | [place], | | | | | | [place] [address] | | | | | | [phone] | | | | | | | [...] + + | Coronary artery disease involving tribe coronary artery of tribe heart with unstable | | angina pectoris (HCC) | + + | Chest pain, unspecified type | + + | Hyperlipidemia, mixed Mixed hyperlipidemia | + + documented in this encounter
--- OUTSIDE RECORDS SUMMARY | ~2019-04-12 | XMS | Encounter Summary ---
Demographics + + + | Address | [address] | | | [place] [address] | + + + | Home Phone [...] Author | [facility] | | | and [place] | + + + | Organization | [facility] | [...] [place] | | | | | [place] [address] | | + + + + + | Hunter Jackson | ECON | [place] | | + + + + + | Wes Jackson | ECON | [place], [place] | | + + + + + | Oziel Jackson | ECON | [place], [place] | | + + + + + Care Team Providers + +------+ + | Care Law Tutor Name | Role | Phone | + +------+ + | Gunderson, Kellie PA | PCP | | + +------+ + Reason for Visit + + + | Reason | Comments | + + + | Lab Order | Patient is due for fasting labs | + + + Encounter Details +--------+ + + + + | Date | Type | Department | Care Team | Description | +--------+ + + + + | 09/10/ | Telephone | [facility] [place] | Yesi, | Lab Order (Patient | | 2018 | | CARDIOLOGY [address] | JOSE ALBERTO [address]inder [address] | is due for fasting | | | | [place], | [place], | labs) | | | | [place] [address] | [place] [address] | | | | | [phone] | [phone] | | | | | | | [...] STREETER | | | | | | [address] | | | | | | | | +--------+---------+ + + + | 11/21/ | Office | Cardiology | Yesi, | | | 2020 | Visit | | JOSE ALBERTO [address]inder [address] | | | | | | [place], | | | | | | [place] [address] | | | | | | [phone] | | | | | | | | +--------+---------+ + + + + +------+--------+ + + | Name | Type | Priori | Associated Diagnoses | Order Schedule | | | | ty | | | + +------+--------+ + + | Lipid Panel | Lab | Routin | Hyperlipidemia, | Expected: | | | | e | mixed Valvular | 09/10/2017, Expires: | | | | | heart disease | 09/10/2018 | | | | | Essential | [...] involving | | | | | | [place] coronary | | | | | | artery of [place] | | | | | | heart with unstable | | | | | | angina pectoris | | | | | | (HCC) | | + +------+--------+ + + | Comprehensive | Lab | Routin | Hyperlipidemia, | Expected: | | Metabolic Panel | | e | mixed Valvular | 09/10/2017, Expires: | | | | | heart disease | 09/10/2018 | | | | | Essential | [...] involving | | | | | | [place] coronary | | | | | | artery of [place] | | | | | | heart with unstable | | | | | | angina pectoris | | | | | | (HCC) | | + +------+--------+ + + | CBC with | Lab | Routin | Hyperlipidemia, | Expected: | | Differential | | e | mixed Valvular | 09/10/2017, Expires: | | | | | heart disease | 09/10/2018 | | | | | Essential | [...] involving | | | | | | [place] coronary | | | | | | artery of [place] | | | | | | heart with unstable | | | | | | angina pectoris | | | | | | (HCC) | | + +------+--------+ + + documented as of this encounter Visit Diagnoses + + | Diagnosis | + + | Hyperlipidemia, mixed - Primary Mixed hyperlipidemia | + + | Valvular heart disease Endocarditis, valve unspecified, unspecified cause | + + | Essential hypertension with goal blood pressure less than 130/80 | + + | Aortic valve insufficiency, etiology of cardiac valve disease unspecified | + + | Coronary artery disease involving [place] coronary artery of [place] heart with unstable | | angina pectoris (HCC) | + + documented in this encounter"
--- OUTSIDE RECORDS SUMMARY | ~2019-04-12 | XMS | Encounter Summary ---
Demographics + + + | Address | [address] | | | [place] [address] | + + + | Home Phone [...] [place] | | | | | [place] [address] | | + + + + + | Hunter Jackson | ECON | [place] | | + + + + + | Wes Jackson | ECON | [place], [place] | | + + + + + | Oziel Jackson | ECON | [place], [place] | | + + + + + Care Team Providers + +------+ + | Care Returning Officer Name | Role | Phone | [...] + + | 04/28/ | [facility] [place] | Ulysses Jensen, | Arthritis of | | 2017 | Visit | ORTHOPEDIC SURGERY | MD Danny FLANNERY | carpometacarpal | | | | [address] [place] | [place] [address] | ([facility]) joint of right | | | | [place] | [address] | thumb (Primary Dx); | | | | [address] | | Rotator cuff tear | | | | [phone] | | arthropathy of right | | [...] [place] | | | | | | [address] | | | | | | | | +--------+---------+ + + + | 11/21/ | Office | Cardiology | Yesi, | | | 2019 | Visit | | JOSE ALBERTO [address]inder [address] | | | | | | [place], | | | | | | [place] [address] | | | | | | [phone] | | | | | | | [...]
--- OUTSIDE RECORDS SUMMARY | ~2019-04-12 | XMS | Encounter Summary ---
Demographics + + + | Address | [address] | | | [place] [address] | + + + | Home Phone [...] + | Author | [facility] | | | and [place] | + + + | Organization | [facility] | | | and [place] | + + + | Address | Unknown | + + + | Phone | Unavailable | + + + Support + + + + + | Name | Relationship | Address | Phone | + + + + + | Osmin Jackson | ECON | [address] | | | | | [place] [address] | | + + + + + | Hunter Jackson | ECON | [place] | | + + + + + | Wes Jackson | ECON | [place], [place] | | + + + + + | Oziel Jackson | ECON | [place], [place] | | + + + + + Care Team Providers + +------+ + | Care Calciminer Name | Role | Phone | + +------+ + | Gunderson, Kellie PA | PCP | | + +------+ + Encounter Details +--------+---------+ + + + | Date | Type | Department | Care Team | Description | +--------+---------+ + + + | 10/16/ | Surgery | [facility] | Irina Simms, | CV LHC | | 2017 | | MED CTR CV INTRA OP | MD [address] | | | | | [address] | [address] [place], | | | | | [place] | [place] [address] | | | | | [address] | [phone] | | | | | [phone] | | | +--------+---------+ + + + [...] You cannot be awakened Date Last Reviewed: 02/27/201619998120-1359 [employer]. [address] [place] [address], [place] [id number]. All righ ts reserved. This information is [...] by your healthcare provider Date Last Reviewed: 07/07/201319996259-[address] [employer] [place] [id number]. All righ ts reserved. This information is [...] | | | | | | [place] [address] | | | | | | [phone] | | | | | | | [...] (1935) OF PROCEDURE: | | | 10/16/2016 GRAVITY PROSPECTING SUPERVISOR: Irina Simms MD PROCEDURES | | | [...]
--- OUTSIDE RECORDS SUMMARY | ~2019-04-12 | XMS | Encounter Summary ---
Demographics + + + | Address | [address] | | | [place] [address] | + + + | Home Phone | | + + + | Preferred Language | Unknown | + + + | Marital Status | | + + + | Scientologist Affiliation | Unknown | + + + | Race | Unknown | + + + | Ethnic Group | Unknown | + + + Author + + + | Author | [facility] | | | and [place] | + + + | Organization | [facility] [...] | | | | | [place] [address] | | + + + + + | Hunter Jackson | ECON | [place] | | + + + + + | Wes Jackson | ECON | [place], [place] | | + + + + + | Oziel Jackson | ECON | [place], [place] | | + + + + + Care Team Providers + +------+ + | Care Fitter Hand Name | Role | Phone | [...] + | 05/19/ | Office | [facility] | Ulysses Jensen, | Primary | | 2014 | Visit | ORTHOPEDIC SURGERY | MD Danny PARHAM | osteoarthritis of | | | | [address] [facility] | [place] [address] | right shoulder | | | | [place] | [address] | (Primary Dx) | | | | [address] | | | | | | [phone] | | | +--------+---------+ + + + [...] STREET[place] | | | | | | [address] | | | | | | | | +--------+---------+ + + + | 11/21/ | Office | Cardiology | Yesi, | | | 2019 | Visit | | JOSE ALBERTO Linder [address] | | | | | | [place], | | | | | | [place] [address] | | | | | | [phone] | | | | | | | | +--------+---------+ + + + documented as of this encounter Visit Diagnoses + + | Diagnosis | + + | Primary osteoarthritis of right shoulder - Primary Primary localized osteoarthrosis, | | shoulder region | + + documented in this encounter
--- OUTSIDE RECORDS SUMMARY | ~2019-04-12 | XMS | Encounter Summary ---
Demographics + + + | Address | [address] | | | [place] [address] | + + + | Home Phone [...] + | Author | [facility] | | | and [place] | + + + | Organization | [facility] | [...] [place] | | | | | [place] [address] | | + + + + + | Hunter Jackson | ECON | [place] | | + + + + + | Wes Jackson | ECON | [place], [place] | | + + + + + | Oziel Jackson | ECON | [place], [place] | | + + + + + Care Team Providers + +------+ + | Care Medical Insurance Collector Name | Role | Phone | [...] | +--------+ + + + + | 09/18/ | Telephone | [facility] | Irina Simms, | Appointment | | 2017 | | CARDIOLOGY [address] | [address] [place] | | | | | [place], | [place], | | | | | [place] [address] | [place] [address] | | | | | [phone] | [phone] | | | | | | | [...] | | | | | | [place] [address] | | | | | | [phone] | | | | | | | | +--------+---------+ + + + documented as of this encounter Visit Diagnoses Not on filedocumented in this encounter"
--- OUTSIDE RECORDS SUMMARY | ~2019-04-12 | XMS | Encounter Summary ---
Demographics + + + | Address | [address] | | | [place] [address] | + + + | Home Phone [...] Author | [facility] | | | and [place] | + + + | Organization | [facility] | [...] | | | | | [place] [address] | | + + + + + | Hunter Jackson | ECON | [place] | | + + + + + | Wes Jackson | ECON | [place], [place] | | + + + + + | Oziel Jackson | ECON | [place], [place] | | + + + + + Care Team Providers + +------+ + | Care Set Builder Name | Role | Phone | + [...] [place], | | | | | | [address] | [place] [address] | | | | | | Phone: | Phone: | | | | | | [phone] | [phone] | | | | | | Fax: | Fax: | | | | | | [phone] | [phone] | +--------+ + + + + + Reason for Visit + + + | Reason | Comments | + + + | Hypertension | | + + + Encounter Details +--------+---------+ + + + | Date | Type | Department | Care Team | Description | +--------+---------+ + + + | 06/22/ | Office | 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 Refill the lasix, RTC 3 m [facility] with labs prior Otherwise continue current medical [...] STREET[place] | | | | | | [address] | | | | | | | | +--------+---------+ + + + | 11/21/ | Office | Cardiology | Yesi, | | | 2019 | Visit | | JOSE ALBERTO Linder [address] | | | | | | [place], | | | | | | [place] [address] | | | | | | [phone] | | | | | | | [...] ST. | [address] | [place] | [phone] | | [facility] | | [address] | | | - LABORATORY | | [...] | 0.77 | 0.60 - 1.30 | [facility] | | | | | mg/dL | [facility] | | | | | | MEDICAL | | | | | | CENTER - | | | | | | LABORATORY | | + + + + + + | eGFR if not | >60Comment: GLOMERULAR | >=60 | [facility] | | | | FILTRATION | mL/min/1.73m2 | [facility] | | | BRAZILIAN | RATE,ESTIMATED | | MEDICAL | | | | mL/min/1.26e9Thql than | | CENTER - | | [...] [address] | [place] | [phone] | | [facility] | | [address] | | | - LABORATORY | | [...] ST. | [address] | [place] | [phone] | | [facility] | | [address] | | | - LABORATORY | | [...]
--- OUTSIDE RECORDS SUMMARY | ~2019-04-12 | XMS | Encounter Summary ---
Demographics + + + | Address | [address] | | | [place] [address] | + + + | Home Phone [...] Author | [facility] | | | and [place] | + + + | Organization | [facility] | | | and [place] | + + + | Address | Unknown | + + + | Phone | Unavailable | + + + Support + + + + + | Name | Relationship | Address | Phone | + + + + + | Osmin Jackson | ECON | [address] | | | | | [place] [address] | | + + + + + | Hunter Jackson | ECON | [place] | | + + + + + | Wes Jackson | ECON | [place], [place] | | + + + + + | Oziel Jackson | ECON | [place], [place] | | + + + + [...] bone | Rodolfo Reilly MD | [address] | | | | | lesions on | [address] | [place], | | | | | xray | [address] | [place] [address] | | | | | Procedures | [place], [place] | Phone: | | | | | CT Chest | [address] | [phone] | | | | | Abdomen | Phone: | Fax: | | | | | Pelvis w | [phone] | [phone] | | | | | Contrast | Fax: | | | | | | | [phone] | | +--------+--------+ + + + + [...] bone | Rodolfo Reilly MD | [address] | | | | | lesions on | [address] | [place], | | | | | xray | [address] | [place] [address] | | | | | Procedures | [place], [place] | Phone: | | | | | CT Chest | [address] | [phone] | | | | | Abdomen | Phone: | Fax: | | | | | Pelvis w | [phone] | [phone] | | | | | Contrast | Fax: | | | | | | | [phone] | | +--------+--------+ + + + + Encounter Details +--------+ + + + + | Date | Type | Department | Care Team | Description | +--------+ + + + + | 11/09/ | Hospital | [facility] | Rodolfo Cruz, | Lytic bone lesions | | 2013 | Encounter | MED CTR [address] | [address] | on xray | | | | [place], | [place], [place] | | | | | [place] [address] | [address] | | | | | [phone] | | | +--------+ + + + [...] [place] | | | | | | [address] | | | | | | | | +--------+---------+ + + + | 11/21/ | Office | Cardiology | Yesi, | | | 2019 | Visit | | JOSE ALBERTO Linder [address] | | | | | | [place], | | | | | | [place] [address] | | | | | | [phone] | | | | | | | [...] intravenous | | administration of 90 mL [id number] contrast. Oral contrast was administered. | | [...] + | MISCELLANEOUS LAB | | | [phone] | + +---------+ + + | MISCELANIOUS LAB | | | [phone] | + +---------+ + + documented in [...]
--- OUTSIDE RECORDS SUMMARY | ~2019-04-12 | XMS | Encounter Summary ---
Demographics + + + | Address | [address] | | | [place] [address] | + + + | Home Phone [...] Author | [facility] | | | and [place] | + + + | Organization | [facility] | [...] [place] | | | | | [place] [address] | | + + + + + | Hunter Jackson | ECON | [place] | | + + + + + | Wes Jackson | ECON | [place], [place] | | + + + + + | Oziel Jackson | ECON | [place], [place] | | + + + + + Care Team Providers + +------+ + | Care Subassembler Name | Role | Phone | + +------+ + | Gunderson, Kellie PA | PCP | | + +------+ + Reason for Visit + + + | Reason | Comments | + + + | Chest Pain | | + + + | Follow-up | | + + + Encounter Details +--------+---------+ + + + | Date | Type | Department | Care Team | Description | +--------+---------+ + + + | 09/26/ | Office | [facility] | Christopher Simms, | Chest pain, | | 2017 | Visit | CARDIOLOGY [address] | [address] | unspecified type | | | | [place], | [place], | (Primary Dx) | | | | [place] [address] | [place] [address] | | | | | [phone] | [phone] | | | | | | | [...] + + + | Blood Pressure | 124/58 | 09/26/2016 10:47 AM | | | | | PDT | | + + + + + | Pulse | 54 | 09/26/2016 10:47 AM | | | | | PDT | | + + + + + | Temperature | - | - | | + + + + + | Respiratory Rate | 14 | 09/26/2016 10:47 AM | | | | | PDT | | + + + + + | Oxygen Saturation | - | - | | + + + + + | Inhaled Oxygen | - | - | | | Concentration | | | | + + + + + | Weight | 80.7 kg (178 lb) | 09/26/2016 10:47 AM | | | | | PDT | | + + + + + | Height | 162.6 cm (5' 4") | 09/26/2016 10:47 AM | | | | | PDT | | + + + + + | Body Mass Index | 30.55 | 09/26/2016 10:47 AM | | | | | PDT | | + + + + + documented in this encounter Patient Instructions Patient Instructions Joanna Tan RN - 09/26/2016 11:19 AM PDTINSTRUCTIONS Soumya Jackson 1935 Procedure: Left heart catheterization Day: Date: Check-in time: 1. Check in at [facility] (same-day surgery). You may be asked to check in up to 4 hours prior to your procedure to get extra IV fluids to help protect your kidneys . 2. Do not eat or drink anything after midnight prior to the procedure. 3. Take all of your regular medications with a sip of water the morning of the procedure. 4. The procedure lasts approximately one hour, and you will have conscious sedation for the procedure which will help decrease pain and will make you groggy. 5. After the procedure you will remain either in recovery or same day surgery center for at least 2 hours, part of this time you may have to lie flat depending on the procedure. 6. Make sure you have a boat driver to take you home. Your boat driver will also need to sign you ou t, to take responsibility for you, so it can not be a taxi or transportation system, unless there is a caregiver with transportation. 7. Please call us with any questions or concerns at . If you need to cancel the procedure at the last minute, such as due to illness, and you are calling after regular office hours, call the main hospital line at and ask for nursing crusher supervisor t o let them know you are cancelling . Follow up appointment in Cardiology: 4-6 weeks Provider: Christopher Simms MD Date: Check-in time: documented in this encounter Progress Notes Christopher Simms MD - 09/26/2016 10:48 AM PDTFormatting of this note might be different f rom the original. PATIENT NAME: Soumya Jackson : 1935: AGE: 81 y.o. PRIMARY CARE: FLORA Morgan OUTPATIENT FOLLOW UP VISIT Date of Service: 09/26/2016 HISTORY OF PRESENT ILLNESS: Soumya Jackson is a 81 y.o. female with a history of moderate aortic valve insufficiency, essential hypertension, osteoarthritis, hypothyroidism, dyslipidemia, elevated CRP. She is being seen today for follow up persistent chest pain. She was last seen 08/01/2016 at which time she was to continue same medical regimen. Since that time, patient is feeling ok in some pain off and on due to her back. 2 weeks ago, she was seen at the ED of [facility] in [place] because of the severe substernal chest pressure. She described it as a chest pressure like "bricks on my chest", 12/19 that r adiated to the back and shoulder. Patient is physically active and exercises regularly by a quatic exercises at the [employer] up to 3 times weekly. Patient also enjoys painting. The re is chest pressure or chest discomfort both at rest and on exertion. Patient denies breath lessness. There is no palpitation dizziness or lightheadedness. There is no ankle or leg swe lling. Patient can sleep on one pillow at night without difficulty breathing. MEDICAL, SURGICAL, [...] DDD (degenerative disc disease), cervical Cervical radiculopathy CURRENT MEDICATIONS Current Outpatient Prescriptions Medication Sig [...] mouth nightly. 90 tablet 0 furosemide (LASIX) 20 mg tablet Take 1 tablet by mouth Daily. 90 tablet 1 GARLIC Take 1,250 mg by mouth Daily. Glucosamine-Chondroitin (COSAMIN DS PO) Take 2 tablets by mouth Daily. HYDROcodone-acetaminophen (NORCO) 7.5-325 mg per tablet One po qd prn pain, avoid routi ne use, 90 day supply 80 tablet 0 L-Lysine HCl 500 MG CAPS [...] for chest pain, palpitations and leg swelling. Chest pressure = Yes Neurological: Positive for weakness. Negative for dizziness. Lightheaded = No OBJECTIVE: PHYSICAL EXAM BP 124/58 mmHg | Pulse 54 | Resp 14 | Ht 1.626 m (5' 4") | Wt 80.74 kg (178 lb) | BMI 30.54 kg/m2 Physical Exam Constitutional: She appears well-developed and well-nourished. No distress. Female individual without acute distress here with her friend Neck: Normal carotid pulses, no hepatojugular [...] does not e xhibit a depressed mood. EC09/26/16, shows sinus bradycardia, possible left atrial enlargement, borderline ECG LAB RESULTS reviewed during visit today primarily from [facility]: LIPID Lab Results Component Value Date CHOL 218* 09/26/2015 TRIG 98 09/26/2015 HDL 71 09/26/2015 LDL 127 09/26/2015 CHOLHDL 3.1 09/26/2015 LDLEX 125* 05/19/2015 HDLEX 63.5 05/19/2015 TRIGEX 80 05/19/2015 CHOLEX 204* 05/19/2015 CHEMISTRY Lab Results Component Value Date GLU 125* 11/07/2015 GLUEX 107* 09/18/2016 NA 136 11/07/2015 NAEX 133 09/18/2016 K 4.0 11/07/2015 KEX 4.3 09/18/2016 CL 98 11/07/2015 CLEX 97 09/18/2016 CO2 30 11/07/2015 CO2EX 27 09/18/2016 CALCIUM 9.4 11/07/2015 ALKPHOS 70 11/07/2015 AST 19 11/07/2015 ASTEX 18 09/18/2016 ALT 12 11/07/2015 ALTEX 10 09/18/2016 BILITOT 0.5 11/07/2015 CREA 0.74 11/07/2015 BUN 10 11/07/2015 EGFR 60 09/03/2012 EGFREX 86 09/18/2016 CREEX 0.66* 09/18/2016 HEMATOLOGY Lab Results Component Value Date WBC 9.9 01/04/2016 WBCEX 11.7* 09/18/2016 HGB 14.6 01/04/2016 HGBEX 14.8 09/18/2016 HCT 43.1 01/04/2016 HCTEX 43.8 09/18/2016 PLT 367 01/04/2016 PLTEX 370 09/18/2016 I reviewed records from [facility] for emergency department visit on 09/18/16 which is summarized in the HPI. Above data and testing is reviewed this visit; testing below is historical data unless othe rwise specified. ASSESSMENT: 1. Chest pain/chest pressure: A. Seen at [facility] they had EKG and sent her home stating it was GERD B. Seen in the emergency room at [facility] for chest pain. She was schedule for stre ss test and discharged home. C. Stress Test 05/16/16, is maximal asymptomatic stress test, [facility] very poor function status, achieving [...] calcified nodule is a new finding. F. Today, patient complaining of persistent substernal chest pressu re, 12/19 that radiated to the shoulder and back. Chest pressure could happen both at rest a nd on exertion. She has been continuing to exercising on regular basis. There is no sig ns and symptoms of overt congestive heart failure.She is in a class I of [place] [facility] sociation functional class. There is no fluid retention on physical examination. 2. Essential hypertension with goal blood pressure less than 130/80: A. Today, blood pressure is well controlled 3. Heart murmur due to aortic valve [...] other statins at this point. PLAN: 1. Recommended [facility] right radial approach to rule out CAD for persistent substernal chest pr essure.The risks and benefits of the procedure including alternative treatment were discusse d with the patient in length. The patient decides to proceed with the procedure. 2. Advised to continue to carry nitroglycerin 3. Follow-up in 4-6 weeks. I Rei Shah am acting as a scribe on behalf of, and in the presence of Christopher Simms MD. I have reviewed and edited this note. RL Whipple 09/26/2016 I, Christopher Simms MD, personally performed the services described in this documentation, as scribed in my presence and it is both accurate and complete. RL Whipple 017 11:15 Electronically signed by: Christopher Simms MD [facility] 09/26/2016 Portions of this chart may have been created with [employer] voice recognition software. Occasi onal wrong-word or [...] [place] | | | | | | [address] | | | | | | | | +--------+---------+ + + + | 11/21/ | Office | Cardiology | Yesi, | | | 2019 | Visit | | JOSE ALBERTO Linder [address] | | | | | | [place], | | | | | | [place] [address] | | | | | | [phone] | | | | | | | | +--------+---------+ + + + documented as of this encounter Procedures + +--------+ + + + | Procedure Name | Priori | Date/Time | Associated Diagnosis | Comments | | | ty | | | | + +--------+ + + + | ECG 12 LEAD | Routin | 09/26/2016 | Chest pain, | Results for this | | | e | 10:50 AM | unspecified type | procedure are in the | | | | PDT | | results section. | + +--------+ + + + | LABS - EXTERNAL SCAN | | 09/18/2016 | | Results for this | | | | 12:00 AM | | procedure are in the | | | | PDT | | results section. | + +--------+ + + + | ECG - EXTERNAL SCAN | | 09/18/2016 | | Results for this | | | | 12:00 AM | | procedure are in the | | | | PDT | | results section. | + +--------+ + + + documented in this encounter Results ECG 12 lead (09/26/2016 10:50 AM PDT) + + + + + [...] + + + + | P-R | 144 | ms | [facility] | | | INTERVAL | | | | | + + + + + + | QRS | 78 | ms | [facility] | | | DURATION | | | | | + + + + + + | Q-T | 418 | ms | [facility] | | | INTERVAL | | | | | + + + + + + | Q-T | 392 | ms | [facility] | | | INTERVAL | | | | | | (CORRECTED) | | | | | + + + + + + | P WAVE AXIS | 62 | degrees | [facility] | | + + + + + + | QRS AXIS | 49 | degrees | [facility] | | + + + + + + | T AXIS | 63 | degrees | [facility] | | + + + + + + | INTERPRETAT | Sinus | | [facility] | | | ION TEXT | bradycardiaPossible Left | | | | | | atrial | | | | | | enlargementBorderline | | | | | | ECGWhen compared with | | | | | | ECG of 03-JUL-2016 | | | | | | 15:12,premature atrial | | | | | | complexes are no longer | | | | | | presentConfirmed by | | | | | | CHRISTOPHER SIMMS MD | | | | | | ([id number]) on 09/26/2016 | | | | | | 4:36:10 PM | | | | + + [...] +---------+ + + LABS - EXTERNAL SCAN (09/18/2016 12:00 AM PDT) + + + | Narrative | Performed At | + + + | Ordered by an | | | unspecified provider. | | + + + ECG - EXTERNAL SCAN (09/18/2016 12:00 AM PDT) + + + | Narrative | Performed At | + + + | Ordered by an | | | unspecified provider. | | + + + documented in this encounter Visit Diagnoses + + | Diagnosis | + + | Chest pain, unspecified type - Primary | + + documented in this encounter
--- OUTSIDE RECORDS SUMMARY | ~2019-04-12 | XMS | Encounter Summary ---
Demographics + + + | Address | [address] | | | [place] [address] | + + + | Home Phone [...] | Author | [facility] | | | and [place] | + + + | Organization | [facility] [...] | | | | | [place] [address] | | + + + + + | Hunter Jackson | ECON | [place] | | + + + + + | Wes Jackson | ECON | [place], [place] | | + + + + + | Oziel Jackson | ECON | [place], [place] | | + + + + + Care Team Providers + +------+ + | Care Integrative Medicine Physician Name | Role | Phone | [...] [place], | | | | | | [address] | [place] [address] | | | | | | Phone: | Phone: | | | | | | [phone] | [phone] | | | | | | Fax: | Fax: | | | | | | [phone] | [phone] | +--------+ + + + + + Reason for Visit + + + | Reason | Comments | + + + | Follow-up | | + + + Encounter Details +--------+---------+ + + + | Date | Type | Department | Care Team | Description | +--------+---------+ + + + | 02/17/ | Office | [facility] | Rodolfo Cruz, | Vertigo (Primary Dx) | | 2011 | Visit | MEDICINE [place] | [address] | | | | | [address] | [place] | | | | | [place] | [address] | | | | | [address] | | | | | | [phone] | | | +--------+---------+ + + + [...] three weeks. She has been to the [facility] and the ER for this. She has [...] vomiting, diarrhea, constipation and abdominal diste ntion. [place] pain, black or bloody stools, excessive gas [...] STREET[place] | | | | | | [id number] | | | | | | | | +--------+---------+ + + + | 11/21/ | Office | Cardiology | Yesi, | | | 2019 | Visit | | JOSE ALBETRO Linder [address] | | | | | | [place], | | | | | | [place] [address] | | | | | | [phone] | | | | | | | [...]
--- OUTSIDE RECORDS SUMMARY | ~2019-04-12 | XMS | Encounter Summary ---
Demographics + + + | Address | [address] | | | [place] [address] | + + + | Home Phone [...] + | Author | [facility] | | | and [place] | + + + | Organization | [facility] [...] | | | | | [place] [address] | | + + + + + | Hunter Jackson | ECON | [place] | | + + + + + | Wes Jackson | ECON | [place], [place] | | + + + + + | Oziel Jackson | ECON | [place], [place] | | + + + + + Care Team Providers + +------+ + | Care Supervisor Commissary Production Name | Role | Phone | + [...] + | 05/02/ | Refill | [facility] | Rodolfo Cruz, | Medication Refill | | 2015 | | MEDICINE [address] | [address] | | | | | [place] | [place] | | | | | [place] [address] | [address] | | | | | [phone] | | | +--------+--------+ + + + [...] | | | | | | [place] [address] | | | | | | [phone] | | | | | | | | +--------+---------+ + + + documented as of this encounter Visit Diagnoses + + | Diagnosis | + + | Pain - Primary Generalized pain | + + documented in this encounter"
--- OUTSIDE RECORDS SUMMARY | ~2019-04-12 | XMS | Encounter Summary ---
Demographics + + + | Address | [address] | | | [place] [address] | + + + | Home Phone [...] Author | [facility] | | | and [place] | + + + | Organization | [facility] | [...] S[place] | | | | | [place] [address] | | + + + + + | Hunter Jackson | ECON | [place] | | + + + + + | Wes Jackson | ECON | [place], [place] | | + + + + + | Oziel Jackson | ECON | [place], [place] | | + + + + + Care Team Providers + +------+ + | Care Fish Net Stringer Name | Role | Phone | + [...] | | | atherosclero | | [address] | | | | | sis of | | [place], | | | | | unspecified | | [place] [address] | | | | | type of | | Phone: | | | | | vessel, | | [phone] | | | | | [place] | | Fax: | | | | | graft | | [phone] | | | | | Coronary | [...] | [facility] | MD Christina [address] [place] [address] | | | | | [facility] | [address] [place] | | | | | [address] | [id number] | | | | | [place] | | | | | | [address] | | | | | | [phone] | | | +--------+ + + + [...] STREETER | | | | | | [id number] | | | | | | | | +--------+---------+ + + + | 11/21/ | Office | Cardiology | Yesi, | | | 2019 | Visit | | JOSE ALBERTO Linder [address] | | | | | | [place] | | | | | | [place] [address] | | | | | | [phone] | | | | | | | | +--------+---------+ + + + documented as of this encounter Visit Diagnoses Not on filedocumented in this encounter"
--- OUTSIDE RECORDS SUMMARY | ~2019-04-12 | XMS | Encounter Summary ---
Demographics + + + | Address | [address] | | | [place] [address] | + + + | Home Phone [...] | Author | [facility] | | | and [place] | + + + | Organization | [facility] | | | and [...] | | | | | [place] [address] | | + + + + + | Hunter Jackson | ECON | [place] | | + + + + + | Wes Jackson | ECON | [place], [place] | | + + + + + | Oziel Jackson | ECON | [place], [place] | | + + + + + Care Team Providers + +------+ + | Care Nailing Machine Operator Automatic Name | Role | Phone | + [...] | [address] | [address] | | | | | | [address] [place] | [place], | | | | | | [place] | [place] | | | | | | [address] | [address] | | | | | | Phone: | Phone: | | | | | | [phone] | [phone] | | | | | | Fax: | Fax: | | | | | | [phone] | [phone] | +--------+ + + + + + Encounter Details +--------+ + + + + | Date | Type | Department | Care Team | Description | +--------+ + + + + | 09/24/ | Orders Only | [facility] | Rodolfo Cruz, | Vertigo (Primary Dx) | | 2012 | | SURGERY [address] | MD [address] | | | | | [place], [place] | [place], [place] | | | | | [address] | [address] | | | | | [phone] | | | +--------+ + + + [...] | | | | | [place], [place] | | | | | | [address] | | | | | | | | +--------+---------+ + + + | 11/21/ | Office | Cardiology | Yesi, | | | 2019 | Visit | | JOSE ALBERTO Linder [address] | | | | | | [address] [place], | | | | | | [place] [address] | | | | | | [phone] | | | | | | | [...]
--- OUTSIDE RECORDS SUMMARY | ~2019-04-12 | XMS | Encounter Summary ---
Demographics + + + | Address | [address] | | | [place] [address] | + + + | Home Phone [...] + | Author | [facility] [place] [facility] | | | and [place] | + + + | Organization | [facility] [place] [facility] | [...] | | | | | [place] [address] | | + + + + + | Hunter Jackson | ECON | [place] | | + + + + + | Wes Jcakson | ECON | [place], [place] | | + + + + + | Oziel Jackson | ECON | [place], [place] | | + + + + + Care Team Providers + +------+ + | Care Director Retail Brand Development Name | Role | Phone | + +------+ + | Rodolfo Cruz MD | PCP | | + +------+ + Encounter Details +--------+ + + + + | Date | Type | Department | Care Team | Description | +--------+ + + + + | 08/10/ | Orders Only | [facility] [place] [facility] | Rodolfo Cruz, | Pulmonary nodules | | 2015 | | MEDICINE [address] | MD [address] | (Primary Dx) | | | | [facility] | [place], [place] | | | | | [place] [address] | [address] | | | | | [phone] | | | +--------+ + + + [...] W | | | | | | [place], | | | | | | [place] [address] | | | | | | [phone] | | | | | | | | +--------+---------+ + + + documented as of this encounter Results Comprehensive Metabolic Panel (10/25/2014 3:05 PM PDT) + + + + + + | Component | Value | Ref Range | Performed | Pathologist | | | | | At | Signature | + + + + + + | Na | 132 (L) | 136 - 149 | [facility] | | | | | mmol/L | [facility] | | | | | | MEDICAL | | | | | | CENTER - | | | | | | LABORATORY | | + + + + + + | K | 3.6 | 3.5 - 5.1 | [facility] | | | | | mmol/L | [facility] | | | | | | MEDICAL | | | | | | CENTER - | | | | | | LABORATORY | | + + + + + + | Cl | 96 (L) | 98 - 109 mmol/L | [facility] [...] + + + + | Glucose | 118 (H) | 70 - 109 mg/dL | [facility] | | | | | | [facility] | | | | | | MEDICAL | | | | | | CENTER - | | | | | | LABORATORY | | + + + + + + | BUN | 13 | 7 - 18 mg/dL | [facility] | | | | | | [facility] | | | | | | MEDICAL | | | | | | CENTER - | | | | | | LABORATORY | | + + + + + + | Creatinine | 0.76 | 0.60 - 1.30 | [facility] | | | | | mg/dL | [facility] | | | | | | MEDICAL | | | | | | CENTER - | | | | | | LABORATORY | | + + + + + + | eGFR if not | >60Comment: GLOMERULAR | >=60 | [facility] | | | | FILTRATION | mL/min/1.73m2 | [facility] | | | MONEGASQUE | RATE,ESTIMATED | | MEDICAL | | | | mL/min/1.02r9Kciq than | | CENTER - | | [...] + + + + | Calcium | 8.9 | 8.3 - 10.5 | [facility] | | | | | mg/dL | [facility] | | | | | | MEDICAL | | | | | | CENTER - | | | | | | LABORATORY | | + + + + + + | Albumin | 3.6 | 3.2 - 5.0 g/dL | [facility] | | | | | | [facility] | | | | | | MEDICAL | | | | | | CENTER - | | | | | | LABORATORY | | + + + + + + | Bilirubin | 0.3Comment: This is an | 0.1 - 1.5 mg/dL | [facility] | | | Total | appended report. These | | [facility] | | | | results have been | | MEDICAL | | | | appended to a previously | | CENTER - | | | | preliminary verified | | LABORATORY | | | | report. | | | | + + + + + + | Total | 7.1 | 6.0 - 7.8 g/dL | [facility] | | | Protein | | | [facility] | | | | | | MEDICAL | | | | | | CENTER - | | | | | | LABORATORY | | + + + + + + | AST | 21Comment: This is an | 10 - 42 U/L | [facility] | | | | appended report. These | | [facility] | | | | results have been | | MEDICAL | | | | appended to a previously | | CENTER - | | | | preliminary verified | | LABORATORY | | | | report. | | | | + + + + + + | ALT | 13Comment: This is an | 6 - 45 U/L | [facility] | | | | appended report. These | | [facility] | | | | results have been | | MEDICAL | | | | appended to a previously | | CENTER - | | | | preliminary verified | | LABORATORY | | | | report. | | | | + + + + + + | Alkaline | 69Comment: This is an | 40 - 110 U/L | [facility] | | | Phosphatase | appended report. These | | [facility] | | | | results have been | | MEDICAL | | | | appended to a previously | | CENTER - | | | | preliminary verified | | LABORATORY | | | | report. | | | | + + + + + + | Globulin | 3.5 | g/dL | [facility] | | | | | | [facility] | | | | | | MEDICAL | | | | | | CENTER - | | | | | | LABORATORY | | + + + + + + | Albumin/Sarah | 1.0 | | [facility] | | | bulin Ratio | | | [facility] | | | | | | MEDICAL | | | | | | CENTER - | | | | | | LABORATORY | | + + + + + + | BUN/Creatin | 17.1 | | [facility] | | | ine [...] ST. | [address] | [place] | [phone] | | [facility] | | [address] | | | - LABORATORY | | | | + + + + + documented in this encounter Visit Diagnoses + + | Diagnosis | + + | Pulmonary nodules - Primary Other nonspecific abnormal finding of lung field | + + documented in this encounter"
--- OUTSIDE RECORDS SUMMARY | ~2019-04-12 | XMS | Encounter Summary ---
Demographics + + + | Address | [address] | | | [place] [address] | + + + | Home Phone | | + + + | Preferred Language | Unknown | + + + | Marital Status | | + + + | Adventism Affiliation | Unknown | + + + | Race | Unknown | + + + | Ethnic Group | Unknown | + + + Author + + + | Author | [facility] [place] [facility] | | | and [place] | + + + | Organization | [facility] [place] [facility] | | | and [place] | + + + | Address | Unknown | + + + | Phone | Unavailable | + + + Support + + + + + | Name | Relationship | Address | Phone | + + + + + | Osmin Jackson | ECON | [address] | | | | | [place] [address] | | + + + + + | Hunter Jackson | ECON | [place] | | + + + + + | Wes Jackson | ECON | [place], [place] | | + + + + + | Oziel Jackson | ECON | [place], [place] | | + + + + + Care Team Providers + +------+ + | Care Lath Hand Name | Role | Phone | + +------+ + | Gunderson, Kellie PA | PCP | | + +------+ + Reason for Visit + + + | Reason | Comments | + + + | Follow-up | right shoulder injection | + + + | Follow-up | right CMC injection | + + + Encounter Details +--------+---------+ + + + | Date | Type | Department | Care Team | Description | +--------+---------+ + + + | 01/29/ | Office | [facility] | Ulysses Jensen, | Complete tear of | | 2017 | Visit | ORTHOPEDIC SURGERY | [address] | right rotator cuff | | | | [address] | [place] [address] | (Primary Dx); | | | | [place] | [address] | Localized primary | | | | [address] | | osteoarthritis of | | | | [phone] | | carpometacarpal | | | | | | joint of right thumb | +--------+---------+ + + + Social History [...] encounter Progress Notes Ulysses Jensen MD - 01/29/2017 2:30 PM PDTPatient returns follow-up massive right should er rotator cuff tear and right first CMC arthritis She wishes to have injections She is still recovering from her open heart surgery and has not regained her stamina She feels tired all the time She certainly doesn't want to pursue any surgery about her shoulder or wrist any time soon if at all Under sterile conditions today I injected her right shoulder subacromial space with Kenalog 40 mg and Naropin 3 cc Under sterile conditions I then injected her right first CMC joint with Celestone and 1 cc and Naropin 1 cc She will return as needed [...] [place] | | | | | | [id number] | | | | | | | | +--------+---------+ + + + | 11/21/ | Office | Cardiology | Yesi, | | | 2019 | Visit | | JOSE ALBERTO [address]inder [address] | | | | | | [place], | | | | | | [place] [address] | | | | | | [phone] | | | | | | | | +--------+---------+ + + + documented as of this encounter Visit Diagnoses + + | Diagnosis | + + | Complete tear of right rotator cuff - Primary | + + | Localized primary osteoarthritis of carpometacarpal joint of right thumb | + + documented in this encounter Administered Medications + +--------+ +------+------+ + | Medication Order | MAR | Action | Dose | Rate | Site | | | Action | Date | | | | + +--------+ +------+------+ + | betamethasone (CELESTONE | Given | 01/30/20 | 6 mg | | Hand-Rig | | SOLUSPAN) injection 6 mg 6 mg, | | 17 2:40 | | | ht | | Intra-articular, ONCE, Wed | | PM PDT | | | | | 01/29/17 at 1445, For 1 dose, | | | | | | | Shake well. Not for IV use., | | | | | | + +--------+ +------+------+ + +---+---+ | | | +---+---+ + +-------+ +-------+---+ + | triamcinolone acetonide | Given | 01/31/20 | 40 mg | | Shoulder | | (KENALOG-40) 40 mg/mL injection | | 17 12:38 | | | -Right | | 40 mg 40 mg, Intra-articular, | | PM PDT | | | | | ONCE, 01/29/17 at 1445, For 1 | | | | | | | dose, Shake well. Not for IV | | | | | | | use., | | | | | | + +-------+ +-------+---+ + +---+---+ | | | +---+---+ documented in this encounter"
--- OUTSIDE RECORDS SUMMARY | ~2019-04-12 | XMS | Encounter Summary ---
Demographics + + + | Address | [address] | | | [place] [address] | + + + | Home Phone [...] | Author | [facility] | | | and [place] | + + + | Organization | [facility] | | | and [...] | | | | | [place] [address] | | + + + + + | Hunter Jackson | ECON | [place] | | + + + + + | Wes Jackson | ECON | [place], [place] | | + + + + + | Oziel Jackson | ECON | [place], [place] | | + + + + + Care Team Providers + +------+ + | Care Economics Teacher Name | Role | Phone | [...] | 08/16/ | Refill | [facility] | Rodolfo Cruz, | Medication Refill | | 2016 | | MEDICINE [address] | [address] | | | | | [place] | [place] [address] | | | | | [place] [address] | [address] | | | | | [phone] | | | +--------+--------+ + + + [...] | | | | | | [place] [address] | | | | | | [phone] | | | | | | | | +--------+---------+ + + + documented as of this encounter Visit Diagnoses + + | Diagnosis | + + | Insomnia, unspecified insomnia - Primary | + + documented in this encounter"
--- OUTSIDE RECORDS SUMMARY | ~2019-04-12 | XMS | Encounter Summary ---
Demographics + + + | Address | [address] | | | [place] [address] | + + + | Home Phone [...] | Author | [facility] | | | and [place] | + + + | Organization | [facility] | | | and [place] | + + + | Address | Unknown | + + + | Phone | Unavailable | + + + Support + + + + + | Name | Relationship | Address | Phone | + + + + + | Osmin Jackson | ECON | [address] | | | | | [place] [address] | | + + + + + | Hunter Jackson | ECON | [place] | | + + + + + | Wes Jackson | ECON | [place], [place] | | + + + + + | Oziel Jackson | ECON | [place], [place] | | + + + + + Care Team Providers + +------+ + | Care Crystal Grinder Name | Role | Phone | + [...] | JOSE ALBERTO Linder | [address] | | | | | type | [address] | [place], | | | | | Procedures | [place] | [place] | | | | | [place] Nuclear | [place], | [address] | | | | | Stress Test | [place] | Phone: | | | | | (Vasodilator | [address] | [phone] | | | | | ) CHG | Phone: | Fax: | | | | | MYOCARDIAL | [phone] | [phone] | | | | | SPECT | Fax: | | | | | | MULTIPLE | [phone] | | | | | | STUDIES ID | | | | | | | CV STRS TST | | | | | | | XERS&/OR RX | | | | | | | CONT ECG W/O | | | | | | | I&R ID | | | | | | | CARDIAC | | | | | | | STRESS | | | | | | | TST,INTERP/R | | | | | | | EPT ONLY | | | +--------+--------+ + + + + Reason for Visit + + + | Reason | Comments | + + + | Blood Pressure | | + + + Encounter Details +--------+ + + + + | Date | Type | Department | Care Team | Description | +--------+ + + + + | 10/02/ | Telephone | [facility] | Yesi, | Blood Pressure | | 2018 | | CARDIOLOGY [address] | JOSE ALBERTO Linder [address] | | | | | [place], | [place], | | | | | [place] [address] | [place] [address] | | | | | [phone] | [phone] | | | | | | | [...] STREETER | | | | | | [address] | | | | | | | | +--------+---------+ + + + | 11/21/ | Office | Cardiology | Yesi, | | | 2019 | Visit | | JOSE ALBERTO Linder [address] | | | | | | [place] | | | | | | [place] [address] | | | | | | [phone] | | | | | | | | +--------+---------+ + + + documented as of this encounter Results [place] Nuclear Stress Test [...] 76 %. Signed by: Irina Simms MD [facility] | | | 10/16/2017, 14:56 | | + + + + + --+ | Narrative | Performed At | + + --+ | | [facility] | | NUCLEAR MEDICINE STRESS TEST REPORT Patient Name: Soumya Jackson | | | Study Date: 10/16/2017 Primary Care Provider: FLORA Morgan MRN: | | | [id number] : 1935 Age: 82 y.o. Gender: female [...]
--- OUTSIDE RECORDS SUMMARY | ~2019-04-12 | XMS | Encounter Summary ---
Demographics + + + | Address | [address] | | | [place] [address] | + + + | Home Phone [...] | Author | [facility] | | | and [place] | + + + | Organization | [facility] | | | and [...] | | | | | [place] [address] | | + + + + + | Hunter Jackson | ECON | [place] | | + + + + + | Wes Jackson | ECON | [place], [place] | | + + + + + | Oziel Jackson | ECON | [place], [place] | | + + + + + Care Team Providers + +------+ + | Care Factory Lay Out Engineer Name | Role | Phone | [...] | | | | | | [place] | [facility] | | | | | | [address] | [place] | | | | | | Phone: | [address] Phone: | | | | | | [phone] | [phone] | | | | | | Fax: | Fax: | | | | | | [phone] | [phone] | +--------+ + + + + + Encounter Details +--------+ + + + + | Date | Type | Department | Care Team | Description | +--------+ + + + + | 08/03/ | Hospital | [facility] | Lauri Ayon | Anemia (Primary Dx); | | 2014 | Encounter | [facility] | MD Rodolfo [address] | Leukocytosis; | | | | [facility] CLINIC [address] [place] | Hypothyroidism; | | | | W [facility] | [place] [address] | Anemia due to blood | | | | [place] [address] | [phone] | loss, acute; Fatigue | | | | [phone] | | | +--------+ + + + [...] of this encounter Progress Notes Jessica Barnes, OPERATING ENGINEER APPRENTICE - 08/03/2014 11:17 AM PDTREVIEW OF SYSTEMS [...] STREETER | | | | | | [id number] | | | | | | | | +--------+---------+ + + + | 11/21/ | Office | Cardiology | Yesi, | | | 2019 | Visit | | JOSE ALBERTO Linder [address] | | | | | | [place], | | | | | | [place] [address] | | | | | | [phone] | | | | | | | [...] [address] | [place] | [phone] | | [facility] | | [address] | | | - LABORATORY | | [...] | | | Sensitive | | | [facility] | | | | | | MEDICAL [...] + | [facility] | [address] | [place] | [phone] | | [facility] | | [address] | | | - LABORATORY | | [...] [place]. | [address] | [place] | [phone] | | [facility] | | [address] | | | - LABORATORY | | [...]
--- OUTSIDE RECORDS SUMMARY | ~2019-04-12 | XMS | Encounter Summary ---
Demographics + + + | Address | [address] | | | [place] [address] | + + + | Home Phone [...] + | Author | [facility] | | | and [place] | + + + | Organization | [facility] | | | and [place] | + + + | Address | Unknown | + + + | Phone | Unavailable | + + + Support + + + + + | Name | Relationship | Address | Phone | + + + + + | Osmin Jackson | ECON | [address] | | | | | [place] [address] | | + + + + + | Hunter Jackson | ECON | [place] | | + + + + + | Wes Jackson | ECON | [place], [place] | | + + + + + | Oziel Jackson | ECON | [place], [place] | | + + + + + Care Team Providers + +------+ + | Care Heeler Name | Role | Phone | + [...] | 07/17/ | Refill | [facility] | Rodolfo Cruz, | Medication Refill | | 2017 | | [facility]IC[facility] [place] | [address] | | | | | [address] | [place] | | | | | [place] | [address] | | | | | [address] | | | | | | [phone] | | | +--------+--------+ + + + [...] STREETER | | | | | | [address] | | | | | | | | +--------+---------+ + + + | 11/21/ | Office | Cardiology | Yesi, | | | 2019 | Visit | | JOSE ALBERTO Linder [address] | | | | | | [address] [place] | | | | | | [place] [address] | | | | | | [phone] | | | | | | | | +--------+---------+ + + + documented as of this encounter Visit Diagnoses Not on filedocumented in this encounter"
--- OUTSIDE RECORDS SUMMARY | ~2019-04-12 | XMS | Encounter Summary ---
Demographics + + + | Address | [address] | | | [place] [address] | + + + | Home Phone [...] Author | [facility] | | | and [place] | + + + | Organization | [facility] | | | and [place] | + + + | Address | Unknown | + + + | Phone | Unavailable | + + + Support + + + + + | Name | Relationship | Address | Phone | + + + + + | Osmin Jackson | ECON | [address] | | | | | [place] [address] | | + + + + + | Hunter Jackson | ECON | [place] | | + + + + + | Wes Jackson | ECON | [place], [place] | | + + + + + | Oziel Jackson | ECON | [place], [place] | | + + + + + Care Team Providers + +------+ + | Care Pilot Manager Name | Role | Phone | + +------+ + | Gunderson, Kellie PA | PCP | | + +------+ + Encounter Details +--------+ + + + + | Date | Type | Department | Care Team | Description | +--------+ + + + + | 10/16/ | Hospital | [facility] | Irina Simms, | Chest pain due to | | 2017 | Encounter | MED CTR CV INTRA OP | [address] | myocardial ischemia, | | | | [address] | [place], | unspecified | | | | [place], [place] | [place] [address] | ischemic chest pain | | | | [address] | [phone] | type (HCC) | | | | [phone] | | | +--------+ + + + [...] You cannot be awakened Date Last Reviewed: 02/27/201619990263-0238 [employer]. [address] [place] [address], [place] [address]. All righ ts reserved. This information is [...] by your healthcare provider Date Last Reviewed: 07/07/201319995403-0427 [employer]. [address] [place] [address], [place] [address]. All righ ts reserved. This information is [...] STREETER | | | | | | [address] | | | | | | | | +--------+---------+ + + + | 11/21/ | Office | Cardiology | Yesi | | | 2019 | Visit | | JOSE ALBERTO Linder [address] | | | | | | [place] | | | | | | [place] [address] | | | | | | [phone] | | | | | | | [...] (1935) OF PROCEDURE: | | | 10/16/2016 BLACK STUDIES PROFESSOR: Irina Simms MD PROCEDURES | | | [...] | Diagnosis | + + | Chest pain due to myocardial ischemia, unspecified ischemic chest pain type | + + documented in this encounter Administered Medications + +--------+---------+------+------+------+ | Medication Order | MAR | Action | Dose | Rate | Site | | | Action | Date | | | | + +--------+---------+------+------+------+ + +---+ | acetaminophen (TYLENOL) tablet | | | 650 mg 650 mg, Oral, EVERY 6 | | | HOURS PRN, Pain, Fever, Starting | | | Fri10/16/16 at 1153, Post-op/Phase | | | II | | + +---+ | | | + +---+ + +-------+ +-------+---+---+ | diphenhydrAMINE (BENADRYL) | Given | 10/16/ | 25 mg | | | | [...] PRN, | | | Chest pain, Starting Fri10/16/16 | | | at 1153, May give [...]
--- OUTSIDE RECORDS SUMMARY | ~2019-04-12 | XMS | Encounter Summary ---
Demographics + + + | Address | [address] | | | [place] [address] | + + + | Home Phone [...] + + | Author | [facility] | | | and [place] | + + + | Organization | [facility] | [...] | | | | | [place] [address] | | + + + + + | [place] Jackson | ECON | [place] | | + + + + + | [place] Jackson | ECON | [place], [place] | | + + + + + | Oziel Jackson | ECON | [place], [place] | | + + + + + Care Team Providers + +------+ + | Care Rn Intern Name | Role | Phone | [...] | 05/15/ | Refill | [facility] | Rodolfo Cruz, | Medication Refill | | 2016 | | MEDICINE [address] | [address] | | | | | [place] | [place] [address] | | | | | [place] [address] | [address] | | | | | [phone] | | | +--------+--------+ + + + [...] | | | | | | [place] [address] | | | | | | [phone] | | | | | | | | +--------+---------+ + + + documented as of this encounter Visit Diagnoses + + | Diagnosis | + + | Insomnia, unspecified insomnia - Primary | + + documented in this encounter"
--- OUTSIDE RECORDS SUMMARY | ~2019-04-12 | XMS | Encounter Summary ---
Demographics + + + | Address | [address] | | | [place] [address] | + + + | Home Phone [...] | Author | [facility] | | | and [place] | + + + | Organization | [facility] | | | and [place] | + + + | Address | Unknown | + + + | Phone | Unavailable | + + + Support + + + + + | Name | Relationship | Address | Phone | + + + + + | Osmin Jackson | ECON | [address] | | | | | [place] [address] | | + + + + + | Hunter Jackson | ECON | [place] | | + + + + + | Wes Jackson | ECON | [place], [place] | | + + + + + | Oziel Jackson | ECON | [place], [place] | | + + + + + Care Team Providers + +------+ + | Care Broadcast Field Supervisor Name | Role | Phone | [...] Pulmonary | Rodolfo Reilly MD | [address] [place] | | | | | nodules | [address] | [place], | | | | | Procedures | [place] | [place] [address] | | | | | CT Chest w | [place], [place] | Phone: | | | | | Contrast | [address] | [phone] | | | | | | Phone: | Fax: | | | | | | [phone] | [phone] | | | | | | Fax: | | | | | | | [phone] | | +--------+--------+ + + + + Encounter Details +--------+ + + + + | Date | Type | Department | Care Team | Description | +--------+ + + + + | 08/18/ | Hospital | [facility] | Rodolfo Cruz, | Pulmonary nodules | | 2015 | Encounter | MED CTR [address] | MD [address] | | | | | [place], | [place], [place] | | | | | [place] [address] | [address] | | | | | [phone] | | | +--------+ + + + [...] encounter Progress Notes Rodolfo Cruz MD - 08/19/2014 11:53 AM PDT Quick Note: Studies recently obtained have slight abnormalities but do not require early follow up, Bu t patient may reschedule earlier to discuss if they wish. Her CT is stable from previous. No treatment changes at this point. documented in thi s encounter Plan of [...] [place] | | | | | | [address] | | | | | | | | +--------+---------+ + + + | 11/21/ | Office | Cardiology | Yesi, | | | 2019 | Visit | | JOSE ALBERTO Linder [address] | | | | | | [place], | | | | | | [place] [address] | | | | | | [phone] | | | | | | | | +--------+---------+ + + + documented as of this encounter Procedures + +--------+ + + + | Procedure Name | Priori | Date/Time | Associated Diagnosis | Comments | | | ty | | | | + +--------+ + + + | CT CHEST W CONTRAST | Routin | 08/18/2014 | Pulmonary nodules | Results for this | | | e | 1:02 PM | | procedure are in the [...] 08/18/2014 12:56 PM HISTORY: pain . | [facility] | | Pulmonary nodules COMPARISON: CT chest 02/22/2014, CT chest | [facility] | | abdomen pelvis 11/09/2013 TECHNIQUE: Axial images were obtained from | [facility] | | the base of the neck [...] intravenous administration of 70 mL | | [id number] contrast. Multiplanar reformatted images created.RADIATION DOSE: DLP [...] [address] | [place] | [phone] | | [facility] | | [address] | | | - IMAGING | | | | + + + + + documented in this encounter Visit Diagnoses + + | Diagnosis | + + | Pulmonary nodules Other nonspecific abnormal finding of lung field | + + documented in this encounter Administered Medications + +--------+ +--------+------+------+ | Medication Order | MAR | Action | Dose | Rate | Site | | | Action | Date | | | | + +--------+ +--------+------+------+ | iohexol (OMNIPAQUE 350) 350 | Given | 08/19/19 | 70 mLs | | | | mg/mL injection 70 mL 70 mL, | | 15 1:01 | | | | | Intravenous, ONCE PRN, Other, | | PM PDT | | | | | Starting [facility] 08/18/14 at 1250, For | | | | | | | 1 dose, Cat Scanner | | | | | | + +--------+ +--------+------+------+ +---+---+ | | | +---+---+ documented in this encounter"
--- OUTSIDE RECORDS SUMMARY | ~2019-04-12 | XMS | Encounter Summary ---
Demographics + + + | Address | [address] | | | [place] [address] | + + + | Home Phone [...] Author | [facility] | | | and [place] | + + + | Organization | [facility] | [...] | | | | | [place] [address] | | + + + + + | Hunter Jackson | ECON | [place] | | + + + + + | [place] Jackson | ECON | [place], [place] | | + + + + + | Oziel Jackson | ECON | [place], [place] | | + + + + + Care Team Providers + +------+ + | Care School Examiner Name | Role | Phone | [...] Description | +--------+--------+ + + + | 05/14/ | Refill | [facility] [place] [facility] | Rodolfo Cruz, | Medication Refill | | 2015 | | MEDICINE [place] | [address] | | | | | [address] | [place] [address] | | | | | [place] | [address] | | | | | [address] | | | | | | [phone] | | | +--------+--------+ + + + [...] | | | | | | [place] [address] | | | | | | [phone] | | | | | | | | +--------+---------+ + + + documented as of this encounter Visit Diagnoses Not on filedocumented in this encounter"
--- OUTSIDE RECORDS SUMMARY | ~2019-04-12 | XMS | Encounter Summary ---
Demographics + + + | Address | [address] | | | [place] [address] | + + + | Home Phone [...] | Author | [facility] | | | and [place] | + + + | Organization | [facility] | | | and [place] | + + + | Address | Unknown | + + + | Phone | Unavailable | + + + Support + + + + + | Name | Relationship | Address | Phone | + + + + + | Osmin Jackson | ECON | [address] | | | | | [place] [address] | | + + + + + | Hunter Jackson | ECON | [place] | | + + + + + | [place] Jackson | ECON | [place], [place] | | + + + + + | Oziel Jackson | ECON | [place], [place] | | + + + + + Care Team Providers + +------+ + | Care Staff Sonographer Name | Role | Phone | + [...] + | 08/05/ | Telephone | [facility] | Braulio León | Garry (PT CALLED TO | | 2018 | | MED CTR SLEEP | MD Allison [address] | CANCEL SLEEP | | | | [place] [address] [place] | [address] [place] | STUDY/NO LONGER | | | | [place], [place] | [place] [address] | WANTS IT) | | | | [address] | [phone] | | | | | [phone] | | | +--------+ + + + [...] STREET[place] | | | | | | [address] | | | | | | | | +--------+---------+ + + + | 11/21/ | Office | Cardiology | Yesi, | | | 2020 | Visit | | JOSE ALBERTO Linder [address] | | | | | | [place], | | | | | | [place] [address] | | | | | | [phone] | | | | | | | | +--------+---------+ + + + documented as of this encounter Visit Diagnoses Not on filedocumented in this encounter"
--- OUTSIDE RECORDS SUMMARY | ~2019-04-12 | XMS | Encounter Summary ---
Demographics + + + | Address | [address] | | | [place] [address] | + + + | Home Phone [...] | [facility] | | | and [place] | + + + | Organization | [facility] | | | [...] [place] | | | | | [place] [address] | | + + + + + | Hunter Jackson | ECON | [place] | | + + + + + | Wes Jackson | ECON | [place], [place] | | + + + + + | Oziel Jackosn | ECON | [place], [place] | | + + + + + Care Team Providers + +------+ + | Care Flux Plant Operator Name | Role | Phone | [...] | Valvular heart | | | | [place], | [place], | disease; [place]; | | | | [place] [address] | [place] [address] | Essential | | | | [phone] | [phone] | hypertension with | | | | | | goal blood pressure | | | | | | less than 130/80; | | | | | | Coronary artery | | | | | | disease involving | | | | | | saxman coronary | | | | | | artery of saxman | | | | | | heart with unstable | | | | | | angina pectoris | | | | | | ([facility]); Chest pain, | | | | | [...] cervical Cervical radiculopathy Coronary artery disease involving saxman coronary artery of saxman heart with unstable angina pectoris Stress hyperglycemia [...] Lateral leads Confirmed by CHRISTOPHER SIMMS MD ([id number]) on 10/16/2017 4:36:18 PM LAB RESULTS reviewed during visit today primarily from [facility]: LIPID Lab Results Component Value [...] BNPEX 63 09/18/2016 I reviewed records from [facility] for office visit on 10/2017 whic h is summarized in the HPI. RESULTS- I reviewed reports from [facility]: No results found. Above data and testing is reviewed this visit; testing below is historical data unless othe rwise specified. ASSESSMENT: 1. Coronary artery disease A. Seen at [facility] they had EKG and sent her home stating it was GERD B. Seen in the emergency room at [facility] for chest pain. Sh maegan was schedule for stress test and discharged home. C. Stress Test 05/16/16, is maximal asymptomatic stress test, [facility] very poor function status, achieving maximal [...] central AI, no , trace TR, trace CA, normal aorta other than mild calcification at [...] this chart may have been created with [employer] voice recognition software. Occasi onal wrong-word or [...] STREETER | | | | | | [address] | | | | | | | | +--------+---------+ + + + | 11/21/ | Office | Cardiology | Yesi, | | | 2019 | Visit | | JOSE ALBERTO Linder [address] | | | | | | [place], | | | | | | [place] [address] | | | | | | [phone] | | | | | | | [...] + + | Coronary artery disease involving saxman coronary artery of saxman heart with unstable | | angina pectoris (HCC) | + + | Chest pain, unspecified type | + + | Hyperlipidemia, mixed Mixed hyperlipidemia | + + documented in this encounter
--- OUTSIDE RECORDS SUMMARY | ~2019-04-12 | XMS | Encounter Summary ---
Demographics + + + | Address | [address] | | | [place] [address] | + + + | Home Phone [...] Author | [facility] | | | and [place] | + + + | Organization | [facility] | | | and [...] | | | | | [place] [address] | | + + + + + | Hunter Jackson | ECON | [place] | | + + + + + | Wes Jackson | ECON | [place], [place] | | + + + + + | Oziel Jackson | ECON | [place], [place] | | + + + + + Care Team Providers + +------+ + | Care Principal Secretary Name | Role | Phone | [...] | ulcer | [address] | [employer]PRESENTATIVE [address] | | | | | disease) | [address] [place] | [address] | | | | | | [place] | [address] | | | | | | [address] | [place] | | | | | | Phone: | [address] Phone: | | | | | | [phone] | [phone] | | | | | | Fax: | Fax: | | | | | | [phone] | [phone] | +--------+ + + + + + [...] bone | Rodolfo Reilly MD | [address] [place] | | | | | lesions on | [address] | [place], | | | | | xray | A[place] | [place] [address] | | | | | Procedures | [place], [place] | Phone: | | | | | CT Chest | [address] | [phone] | | | | | Abdomen | Phone: | Fax: | | | | | Pelvis w | [phone] | [phone] | | | | | Contrast | Fax: | | | | | | | [phone] | | +--------+--------+ + + + + Reason for Visit + + + | Reason | Comments | + + + | Follow-up | 3 week | + + + Encounter Details +--------+---------+ + + + | Date | Type | Department | Care Team | Description | +--------+---------+ + + + | 11/08/ | Office | [facility] | Rodolfo Cruz, | Lytic bone lesions | | 2013 | Visit | MEDICINE [address] [place] [address] | [address] | on xray (Primary | | | | Street [place] | [place], [place] | Dx); Back pain; | | | | [place] [address] | [id number] | Constipation; PUD | | | | [phone] | | (peptic ulcer | | | [...] [place] | | | | | | [address] | | | | | | | | +--------+---------+ + + + | 11/21/ | Office | Cardiology | Yesi, | | | 2019 | Visit | | JOSE ALBERTO Linder [address] | | | | | | [place], | | | | | | [place] [address] | | | | | | [phone] | | | | | | | [...] intravenous | | administration of 90 mL [id number] contrast. Oral contrast was administered. | | [...] + | MISCELLANEOUS LAB | | | [phone] | + +---------+ + + | MISCELANIOUS LAB | | | [phone] | + +---------+ + + documented in [...]
--- OUTSIDE RECORDS SUMMARY | ~2019-04-12 | XMS | Encounter Summary ---
Demographics + + + | Address | [address] | | | [place] [address] | + + + | Home Phone [...] Author | [facility] | | | and [place] | + + + | Organization | [facility] [...] | | | | | [place] [address] | | + + + + + | Hunter Jackson | ECON | [place] | | + + + + + | Wes Jackson | ECON | [place], [place] | | + + + + + | Oziel Jackson | ECON | [place], [place] | | + + + + + Care Team Providers + +------+ + | Care Lard Refiner Name | Role | Phone | + [...] + + | 01/25/ | Telephone | [facility] | Rodolfo Cruz, | Medication Refill | | 2013 | | MEDICINE [facility] [address] | [address] | | | | | [place] | [place] [address] | | | | | [place] [address] | [address] | | | | | [phone] | | | +--------+ + + + [...] STREETER | | | | | | [address] | | | | | | | | +--------+---------+ + + + | 11/21/ | Office | Cardiology | Yesi, | | | 2019 | Visit | | JOSE ALBERTO Linder [address] | | | | | | [place] | | | | | | [place] [address] | | | | | | [phone] | | | | | | | | +--------+---------+ + + + documented as of this encounter Visit Diagnoses + + | Diagnosis | + + | Back pain - Primary Backache, unspecified | + + documented in this encounter"
--- OUTSIDE RECORDS SUMMARY | ~2019-04-12 | XMS | Encounter Summary ---
Demographics + + + | Address | [address] | | | [place] [address] | + + + | Home Phone [...] | | | | | [place] [address] | | + + + + + | Hunter Jackson | ECON | [place] | | + + + + + | Wes Jackson | ECON | [place], [place] | | + + + + + | Oziel Jackson | ECON | [place], [place] | | + + + + + Care Team Providers + +------+ + | Care Load Out Worker Name | Role | Phone | + +------+ + | Rodolfo Cruz MD | PCP | | + +------+ + Encounter Details +--------+ + + + + | Date | Type | Department | Care Team | Description | +--------+ + + + + | 03/23/ | Abstract | [facility] | Zion Davis MD | | | 2011 | | OTOLARYNGOLOGY [address] | [address] [facility] | | | | | [address] [facility] [address] | [address] [place], | | | | | [place] | [place] [address] | | | | | [address] | [phone] | | | | | [phone] | | | +--------+ + + + [...] STREET[place] | | | | | | [address] | | | | | | | | +--------+---------+ + + + | 11/21/ | Office | Cardiology | Yesi, | | | 2019 | Visit | | JOSE ALBERTO Linder [address] | | | | | | [place], | | | | | | [place] [address] | | | | | | [phone] | | | | | | | | +--------+---------+ + + + documented as of this encounter Visit Diagnoses Not on filedocumented in this encounter"
--- OUTSIDE RECORDS SUMMARY | ~2019-04-12 | XMS | Encounter Summary ---
Demographics + + + | Address | [address] | | | [place] [address] | + + + | Home Phone [...] Author | [facility] | | | and [place] | + + + | Organization | [facility] | [...] | | | | | [place] [address] | | + + + + + | Hunter Jackson | ECON | [place] | | + + + + + | [place] Jackson | ECON | [place], [place] | | + + + + + | Oziel Jackson | ECON | [place], [place] | | + + + + + Care Team Providers + +------+ + | Care Data Entry Processor Name | Role | Phone | [...] Description | +--------+--------+ + + + | 11/13/ | Refill | [facility] | Rodolfo Curz, | Medication Refill | | 2016 | | MEDICINE [address] | [address] | | | | | [place] | [place] [address] | | | | | [place] [address] | [address] | | | | | [phone] | | | +--------+--------+ + + + [...] | | | | | | [place] [address] | | | | | | [phone] | | | | | | | | +--------+---------+ + + + documented as of this encounter Visit Diagnoses Not on filedocumented in this encounter"
--- OUTSIDE RECORDS SUMMARY | ~2019-04-12 | XMS | Encounter Summary ---
Demographics + + + | Address | [address] | | | [place] [address] | + + + | Home Phone [...] | Author | [facility] | | | and [place] | + + + | Organization | [facility] | | | and [...] | | | | | [place] [address] | | + + + + + | Hunter Jackson | ECON | [place] | | + + + + + | Wes Jackson | ECON | [place], [place] | | + + + + + | Oziel Jackson | ECON | [place], [place] | | + + + + + Care Team Providers + +------+ + | Care Membership Counselor Name | Role | Phone | + +------+ + | Rodolfo Cruz MD | PCP | | + +------+ + Encounter Details +--------+ + + + + | Date | Type | Department | Care Team | Description | +--------+ + + + + | 10/22/ | Hospital | [facility] | Rodolfo Cruz, | Thoracic sprain and | | 2013 | Encounter | MED CTR LABORATORY | MD Raya DING AVGabriel | strain, subsequent | | | | [address] [place] | [place], [place] | encounter; | | | | [place], [place] | [address] | Hyperlipidemia; | | | | [address] | | Hypertension | | | | [phone] | | | +--------+ + + + [...] [address] | | | | | | [address] [place], | | | | | | [place] [address] | | | | | | [phone] | | | | | | | [...] - 1.030 | [facility] | | | [place] | | | [facility] | | [...] [address] | [place] | [phone] | | [facility] | | [address] | | | - LABORATORY | | | | + + + + + | [facility] | [address] | [place], [place] | | | [facility] | | [address] | | | - LABORATORY | | [...] + | [facility] | [address] | [place] | [phone] | | [facility] | | [address] | | | - LABORATORY | | | | + + + + + | [facility] | [address] | [place] | | | [facility] | | [address] | | | - LABORATORY | | [...] + | [facility] | [address] | [place] | [phone] | | [facility] | | [address] | | | - LABORATORY | | | | + + + + + | [facility] | [address] | [place] | | | [facility] | | [address] | | | - LABORATORY | | [...] [facility] | | | | | | [facility] | | | | | | [...] + | [facility] | [address] | [place], [place] | [phone] | | [facility] | | [address] | | | - LABORATORY | | | | + + + + + | [facility] | [address] | [place], [place] | | | [facility] | | [address] | | | - LABORATORY | | [...] | 0.71 | 0.60 - 1.30 | [facility] | | | | | mg/dL | [facility] | | | | | | MEDICAL | | | | | | CENTER - | | | | | | LABORATORY | | + + + + + + | eGFR if not | >60Comment: GLOMERULAR | >=60 | [facility] | | | | FILTRATION | mL/min/1.73m2 | [facility] | | | TAJIK | RATE,ESTIMATED | | MEDICAL | | | | mL/min/1.61g9Epxw than | | CENTER - | | [...] + | [facility] | [address] | [place] | [phone] | | [facility] | | [address] | | | - LABORATORY | | | | + + + + + | [facility] | [address] | [place] | | | [facility] | | [address] | | | - LABORATORY | | [...] [address] | [place] | [phone] | | [facility] | | [address] | | | - LABORATORY | | | | + + + + + | [facility] | [address] | [place] | | | [facility] | | [address] | | | - LABORATORY | | [...]
--- OUTSIDE RECORDS SUMMARY | ~2019-04-12 | XMS | Encounter Summary ---
Demographics + + + | Address | [address] | | | [place] [address] | + + + | Home Phone [...] + | Author | [facility] | | | and [place]ana | + + + | Organization | [facility] | | [...] [place] | | | | | [place] [address] | | + + + + + | Hunter Jackson | ECON | [place] | | + + + + + | Wes Jackson | ECON | [place], [place] | | + + + + + | Oziel Jackson | ECON | [place], [place] | | + + + + + Care Team Providers + +------+ + | Care Shipyard Painter Helper Name | Role | Phone | [...] Closed | | Radiology | Diagnoses | Mikey, | [facility] | | | | | Chronic | Ulysses Rios MD | [address] | | | | | right | [address] | [place], | | | | | shoulder | [place] | [place] | | | | | pain | [place], [place] | [address] | | | | | Procedures | [address] | Phone: | | | | | MRI Shoulder | Phone: | [phone] | | | | | Right wo | [phone] | Fax: | | | | | Contrast | Fax: | [phone] | | | | | | [phone] | | +--------+--------+ + + + + Reason for Visit + + + | Reason | Comments | + + + | Appointment | | + + + Encounter Details +--------+ + + + + | Date | Type | Department | Care Team | Description | +--------+ + + + + | 09/16/ | Telephone | [facility] | Ulysses Jensen, | Appointment | | 2016 | | ORTHOPEDIC SURGERY | [address] [facility] | | | | | [address] [place] [address] | [place], [place] | | | | | [place], [place] | [address] | | | | | [address] | | | | | | [phone] | | | +--------+ + + + [...] STREETER | | | | | | [address] | | | | | | | | +--------+---------+ + + + | 11/21/ | Office | Cardiology | Yesi, | | | 2019 | Visit | | JOSE ALBERTO Linder [address] | | | | | | [place], | | | | | | [place] [address] | | | | | | [phone] | | | | | | | | +--------+---------+ + + + documented as of this encounter Results MRI Shoulder Right wo Contrast (09/26/2016 1:04 PM PDT) + + | Specimen | + + | | + + + + + | Narrative | Performed At | + + + | MRI SHOULDER RIGHT WO CONTRAST 09/26/2016 12:27 PM HISTORY: | [facility] | | Right Shoulder Pain- Evaluate for Rotator Cuff Tear. COMPARISON: | [facility] | | None. PROTOCOL: Axial proton density fat sat, coronal proton | [facility] | | density fat sat, sagittal proton density fat sat, coronal proton | - IMAGING | | density, coronal T2 fat sat, coronal T2. FINDINGS: | | | Acromioclavicular: Type I acromion, with prominent lateral downsloping | | | and a small end acromial flipped osteophyte. There is narrowing of | | | the subacromial joint space measuring 4 mm. Fluid is identified | | | within the subacromial and subdeltoid bursal regions. Mild to | | | moderate acromioclavicular joint degenerative change. Rotator | | | cuff: Complete tear of the infraspinatus and supraspinatus tendons | | | with approximately 4.2 cm retraction of the tendon fibers to the | | | level of the acromioclavicular joint. Subscapularis tendon is intact. | | | Questionable complete/near-complete tear of the teres minor. | | | Glenoid ligamentous labral complex: Question mild thickening of the | | | middle glenohumeral ligaments. There appears to be thickening of the | | | inferior glenohumeral ligament which measures up to 3.5 mm in | | | thickness. There is questionable mild edema within the rotator cuff | | | interval. The glenohumeral ligament appears normal. There is mild | | | diffuse escalante isointense signal involving the anterior inferior | | | labrum. Apparent small nondisplaced tear involving the superior | | | labrum near the insertion of the long head of the biceps tendon with | | | extension into the anterosuperior labrum. Osteoarticular: | | | Prominent osseous irregularity and subchondral cystic change is seen | | | near the expected insertion of the supraspinatus tendon, likely | | | related to above-mentioned complete tear. Background of mild to | | | moderate diffuse cartilaginous thickening. IMPRESSION - | | | Complete tear of the infraspinatus and supraspinatus tendons with | | | approximately 4.2 cm retraction of the tendon fibers to the level of | | | the acromioclavicular joint. Question near-complete/complete tear | | | of the teres minor. Severe atrophy of the supraspinatus and | | | infraspinatus and moderate atrophy of the teres minor tendons. | | | Questionable complete/near-complete tear of the teres minor. | | | Lateral downsloping of the acromion and prominent narrowing of the | | | subacromial joint space. Prominent fluid within the subacromial | | | and subdeltoid joint spaces/bursa likely related to rotator cuff tear | | | with component of bursitis considered. Mild thickening of the | | | inferior glenohumeral ligament and questionable thickening of the | | | middle glenohumeral ligament as well as questionable mild edema seen | | | within the rotator interval. Developing adhesive capsulitis is | | | considered. Small superior labral tear with questionable extension | | | into the anterosuperior labrum. Small anterior inferior labral | | | tear. Background of mild to moderate cartilaginous thinning. | | | Dictated and Signed by: Yamil Dale MD Electronically signed: | | | 09/26/2016 2:24 PM | | + + + + + | Procedure Note | + + | [place], Rad Results In - 09/26/2016 2:27 PM PDT MRI SHOULDER RIGHT WO CONTRAST | | 09/26/2016 12:27 PM HISTORY: Right Shoulder Pain- Evaluate for Rotator Cuff | | Tear.COMPARISON: None.PROTOCOL: Axial proton density fat sat, coronal proton density fat | | sat, sagittalproton density fat sat, coronal proton density, coronal T2 fat sat, | | coronal T2.FINDINGS:Acromioclavicular: Type I acromion, with prominent lateral | | downsloping and asmall end acromial flipped osteophyte. There is narrowing of the | | subacromialjoint space measuring 4 mm. Fluid is identified within the subacromial | | andsubdeltoid bursal regions. Mild to moderate acromioclavicular joint | | degenerativechange.Rotator cuff: Complete tear of the infraspinatus and supraspinatus | | tendons withapproximately 4.2 cm retraction of the tendon fibers to the level of | | theacromioclavicular joint. Subscapularis tendon is intact. | | Questionablecomplete/near-complete tear of the teres minor.Glenoid ligamentous labral | | complex: Question mild thickening of the middleglenohumeral ligaments. There appears to | | be thickening of the inferiorglenohumeral ligament which measures up to 3.5 mm in | | thickness. There isquestionable mild edema within the rotator cuff interval. The | | glenohumeralligament appears normal. There is mild diffuse escalante isointense signal | | involvingthe anterior inferior labrum. Apparent small nondisplaced tear involving | | thesuperior labrum near the insertion of the long head of the biceps tendon | | withextension into the anterosuperior labrum.Osteoarticular: Prominent osseous | | irregularity and subchondral cystic change isseen near the expected insertion of the | | supraspinatus tendon, likely related toabove-mentioned complete tear. Background of mild | | to moderate diffusecartilaginous thickening.IMPRESSION -Complete tear of the | | infraspinatus and supraspinatus tendons with approximately4.2 cm retraction of the | | tendon fibers to the level of the acromioclavicularjoint.Question near-complete/complete | | tear of the teres minor.Severe atrophy of the supraspinatus and infraspinatus and | | moderate atrophy ofthe teres minor tendons. Questionable complete/near-complete tear of | | the teres minor.Lateral downsloping of the acromion and prominent narrowing of the | | subacromialjoint space.Prominent fluid within the subacromial and subdeltoid joint | | spaces/bursa likelyrelated to rotator cuff tear with component of bursitis | | considered.Mild thickening of the inferior glenohumeral ligament and | | questionablethickening of the middle glenohumeral ligament as well as questionable | | mildedema seen within the rotator interval. Developing adhesive capsulitis | | isconsidered.Small superior labral tear with questionable extension into the | | anterosuperiorlabrum.Small anterior inferior labral tear.Background of mild to moderate | | cartilaginous thinning.Dictated and Signed by: Yamil Dale MD Electronically signed: | | 09/26/2016 2:24 PM | |IMPRESSION - | |Complete tear of the infraspinatus and supraspinatus tendons with approximately | |4.2 cm retraction of the tendon fibers to the level of the acromioclavicular | |joint. | | | |Question near-complete/complete tear of the teres minor. | | | |Severe atrophy of the supraspinatus and infraspinatus and moderate atrophy of | |the teres minor tendons. | | | |Questionable complete/near-complete tear of the teres minor. | | | |Lateral downsloping of the acromion and prominent narrowing of the subacromial | |joint space. | | | |Prominent fluid within the subacromial and subdeltoid joint spaces/bursa likely | |related to rotator cuff tear with component of bursitis considered. | | | |Mild thickening of the inferior glenohumeral ligament and questionable | |thickening of the middle glenohumeral ligament as well as questionable mild | |edema seen within the rotator interval. Developing adhesive capsulitis is | |considered. | | | |Small superior labral tear with questionable extension into the anterosuperior | |labrum. | | | |Small anterior inferior labral tear. | | | |Background of mild to moderate cartilaginous thinning. | | | |Dictated and Signed by: Yamil Dale MD | | Electronically signed: 09/26/2016 2:24 PM | + + + + + + + | Performing | Address | City/State[facility] | Phone Number | | Organization | | | | + + + + + | [address] | [address] | [place] | [phone] | | [facility] | | [address] | | | - IMAGING | | | | + + + + + documented in this encounter Visit Diagnoses + + | Diagnosis | + + | Chronic right shoulder pain - Primary Pain in joint, shoulder region | + + documented in this encounter"
--- OUTSIDE RECORDS SUMMARY | ~2019-04-12 | XMS | Encounter Summary ---
Demographics + + + | Address | [address] | | | [place] [address] | + + + | Home Phone [...] + | Author | [facility] | | | and [place] | + + + | Organization | [facility] [...] [place] | | | | | [place] [address] | | + + + + + | Hunter Jackson | ECON | [place] | | + + + + + | Wes Jackson | ECON | [place], [place] | | + + + + + | Oziel Jackson | ECON | [place], [place] | | + + + + + Care Team Providers + +------+ + | Care Harp Maker Name | Role | Phone | [...] | | | | | [place] | [address] | | | | | | stenosis of | Phone: | | | | | | cervical | [phone] | | | | | | region | Fax: | | | | | | Stenosis of | [phone] | | | | | | cervical [...] | disc disease), | | | | [place], | [facility], | cervical (Primary | | | | [place] [address] | [place] [address] | Dx); [place] | | | | [phone] | [phone] | stenosis of cervical | | | [...] She started PT at [facility] in [place], but then self discharged because it aggravated [...] has no apparent deficits with short or buttermaker continuous churn memory. She has appropriate fund of knowledge [...] with the patient today during the visit. [facility] MRI shows no disc bulge or [...] [place] | | | | | | [id number] | | | | | | | | +--------+---------+ + + + | 11/21/ | Office | Cardiology | Yesi, | | | 2019 | Visit | | JOSE ALBERTO Linder [address] | | | | | | [place], | | | | | | [place] [address] | | | | | | [phone] | | | | | | | [...] to the fluoroscopy suite for a | [facility] | | fluoroscopically-guided C7-T1 interlaminar epidural steroid [...] [address] | [place] | [phone] | | [facility] | | [address] | | | - IMAGING | | [...]
--- OUTSIDE RECORDS SUMMARY | ~2019-04-12 | XMS | Encounter Summary ---
Demographics + + + | Address | [address] | | | [place] [address] | + + + | Home Phone [...] | Author | [facility] | | | and [place] | + + + | Organization | [facility] [...] [place] | | | | | [place] [address] | | + + + + + | Hunter Jackson | ECON | [place] | | + + + + + | Wes Jackson | ECON | [place], [place] | | + + + + + | Oziel Jackson | ECON | [place], [place] | | + + + + + Care Team Providers + +------+ + | Care Knitting Teacher Name | Role | Phone | [...] + + | Closed | Specialty | Sleep | Diagnoses | [place], | [facility] | | | Services | Medicine | Sleep | Braulio Daniel | [place] [address] | | | Required | | apnea, | MD [address] | | | | | unspecified | [address] | [place], | | | | | Paradoxical | [facility] | [place] [address] | | | | | insomnia | [place], [place] | Phone: | | | | | Procedures | [address] | [phone] | | | | | [place] POL[place] | Phone: | Fax: | | | | | 6/>YRS SLEEP | [phone] | [phone] | | | | | 4/> ADDL | Fax: | | | | | | JACQUELYN ATTND | [phone] | | | | | | [place] POLYS[place] | | | | | | | 6/>YRS SLEEP | | | | | | | W/CPAP 4/> | | | | | | | ADDL JACQUELYN | | | | | | | ATTND NPSG | | | | | | | (08/18) | | | +--------+ + + + + + Reason for Visit + + + | Reason | Comments | + + + | CPAP Follow Up | | + + + Encounter Details +--------+---------+ + + + | Date | Type | Department | Care Team | Description | +--------+---------+ + + + | 07/22/ | Office | [facility] | Braulio León | 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 [address] | MD Allison [address] | (Primary Dx); Sleep | | | | [address] [place] | [address] [place] | disorder due to a | | | | [place] [address] | [place] [address] | general medical | | | | [phone] | [phone] | condition, insomnia | | | | | | type | +--------+---------+ + + + Social [...] + + + | Blood Pressure | 130/80 | 07/22/2017 8:47 AM | | | | | PDT | | + + + + + | Pulse | 48 | 07/22/2017 8:47 AM | | | | | PDT | | + + + + + | Temperature | - | - | | + + + + + | Respiratory Rate | 16 | 07/22/2017 8:47 AM | | | | | PDT | | + + + + + | Oxygen Saturation | 97% | 07/22/2017 8:47 AM | | | | | PDT | | + + + + + | Inhaled Oxygen | - | - | | | Concentration | | | | + + + + + | Weight | 81.3 kg (179 lb 3.7 | 07/22/2017 8:47 AM | | | | oz) | PDT | | + + + + + | Height | - | - | | + + + + + | Body Mass Index | 29.83 | 07/17/2017 10:45 AM | | | | | PST | | + + + + + documented in this encounter Progress Notes Braulio León Jr., MD - 07/22/2017 8:30 AM PDTThis patient comes in for follow-up and p sychophysiologic insomnia. The following instructions were discussed in detail with her at our last visit of July 22, 2017: 1) Awaken at nearly the same time [...] time between bed time and wake time. The main change from the previous visit was to delay bedtime from 11:30 PM to midnight. The patient has been unable to stay up to midnight. She typically is going to bed at 11 so metimes as early as 10 PM. She states she feels miserable in the daytime. She continues to have exactly the same sleep pattern she had when I first saw her. She requests a sleeping pill. BP 130/80 | Pulse (!) 48 | Resp 16 | Wt 81.3 kg (179 lb 3.7 oz) | SpO2 97% | BMI 29.83 kg/m A: Organic Insomnia: At this stage I am going to advise diagnostic nocturnal polysomnograph y to assure that we are not missing occult obstructive sleep apnea, occult periodic limb mov ements of sleep, or paradoxical insomnia. I've discussed this in detail with her and she is reluctantly in agreement to undergo polysomnography. I am extraordinarily reluctant to pro vide a hypnotic for this patient who already is taking gabapentin as well as hydrocodone at night. P: PSG in the near future with f/u thereafter. No change in medications. She may return to whatever sleep/wake schedule she is most comfortable with for now. Today, 25 minutes was spent face to face with the patient; the majority of time was spent c mohiteling regarding sleep. documented in th is encounter [...] STREETER | | | | | | [id number] | | | | | | | | +--------+---------+ + + + | 11/21/ | Office | Cardiology | Yesi, | | | 2019 | Visit | | JOSE ALBERTO Linder [address] | | | | | | [place] | | | | | | [place] [address] | | | | | | [phone] | | | | | | | | +--------+---------+ + + + + + +--------+ + + | Name | Type | Priori | Associated Diagnoses | Order Schedule | | | | ty | | | + + +--------+ + + | * 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
--- OUTSIDE RECORDS SUMMARY | ~2019-04-12 | XMS | Encounter Summary ---
Demographics + + + | Address | [address] | | | [place] [address] | + + + | Home Phone [...] Author | [facility] | | | and [place] | + + + | Organization | [facility] | | [...] | | | | | [place] [address] | | + + + + + | Hunter Jackson | ECON | [place] | | + + + + + | Wes Jackson | ECON | [place], [place] | | + + + + + | Oziel Jackson | ECON | [place], [place] | | + + + + + Care Team Providers + +------+ + | Care Slate Picker Name | Role | Phone | + [...] Description | +--------+--------+ + + + | 07/26/ | Refill | [facility] | Rodolfo Cruz, | Medication Refill | | 2016 | | MEDICINE [address] | [address] | | | | | [place] | [place] | | | | | [place] [address] | [address] | | | | | [phone] | | | +--------+--------+ + + + [...] | | | | | | [place] [address] | | | | | | [phone] | | | | | | | | +--------+---------+ + + + documented as of this encounter Visit Diagnoses + + | Diagnosis | + + | Pain Generalized pain | + + documented in this encounter"
--- OUTSIDE RECORDS SUMMARY | ~2019-04-12 | XMS | Encounter Summary ---
Demographics + + + | Address | [address] | | | [place] [address] | + + + | Home Phone [...] + | Author | [facility] | | | and [place] | + + + | Organization | [facility] | [...] | | | | | [place] [address] | | + + + + + | Hunter Jackson | ECON | [place] | | + + + + + | Wes Jackson | ECON | [place], [place] | | + + + + + | Oziel Jackson | ECON | [place], [place] | | + + + + + Care Team Providers + +------+ + | Care Front Counter Attendant Name | Role | Phone | [...] | [address] | | | | | [address] | | | | | | [phone] | | | +--------+--------+ + + + [...] | | | | | | [place] [address] | | | | | | [phone] | | | | | | | | +--------+---------+ + + + documented as of this encounter Visit Diagnoses Not on filedocumented in this encounter"
--- OUTSIDE RECORDS SUMMARY | ~2019-04-12 | XMS | Encounter Summary ---
Demographics + + + | Address | [address] | | | [place] [address] | + + + | Home Phone [...] + | Author | [facility] | | | and [place] | + + + | Organization | [facility] | | [...] | | | | | [place] [address] | | + + + + + | Hunter Jackson | ECON | [place] | | + + + + + | Wes Jackson | ECON | [place], [place] | | + + + + + | Oziel Jackson | ECON | [place], [place] | | + + + + + Care Team Providers + +------+ + | Care Library Circulation Clerk Name | Role | Phone | + +------+ + | Rodolfo Cruz MD | PCP | | + +------+ + Encounter Details +--------+ + + + + | Date | Type | Department | Care Team | Description | +--------+ + + + + | 05/22/ | Abstract | [facility] | Yesi, | | | 2015 | | [address] | JOSE ALBERTO Linder [address] | | | | | [place], | [place], | | | | | [place] [address] | [place] [address] | | | | | [phone] | [phone] | | | | | | | [...] STREETER | | | | | | [address] | | | | | | | | +--------+---------+ + + + | 11/21/ | Office | Cardiology | Yesi, | | | 2019 | Visit | | JOSE ALBERTO Linder [address] | | | | | | [place] | | | | | | [place] [address] | | | | | | [phone] | | | | | | | | +--------+---------+ + + + documented as of this encounter Procedures + +--------+ + + + | Procedure Name | Priori | Date/Time | Associated Diagnosis | Comments | | | ty | | | | + +--------+ + + + | EXTERNAL LAB: | Routin | 05/19/2015 | | Results for this | | TRIGLYCERIDES | e | 8:59 AM | | procedure are in the | | | | PST | | results section. | + +--------+ + + + | EXTERNAL LAB: | Routin | 05/19/2015 | | Results for this | | CHOLESTEROL, HDL | e | 8:59 AM | | procedure are in the | | | | PST | | results section. | + +--------+ + + + | EXTERNAL LAB: | Routin | 05/19/2015 | | Results for this | | CHOLESTEROL, TOTAL | e | 8:59 AM | | procedure are in the | | | | PST | | results section. | + +--------+ + + + | EXTERNAL LAB: | Routin | 05/19/2015 | | Results for this | | CHOLESTEROL, LDL | e | 8:59 AM | | procedure are in the | | | | PST | | results section. | + +--------+ + + + | LIPID PANEL | Routin | 05/19/2015 | | Results for this | | | e | 8:57 AM | | procedure are in the | | | | PST | | results section. | + +--------+ + + + documented in this encounter Results External Lab: Triglycerides (05/19/2015 8:59 AM PST) + +-------+ + + + | Component | Value | Ref Range | Performed | Pathologist | | | | | At | Signature | + +-------+ + + + | Triglycerid | 80 | 30 - 150 | EXTERNAL | | | es, | | | LAB | | | External | | | | | + +-------+ + + + + + | Specimen | + + | Blood specimen | | (specimen) | + + + + | Resulting Agency Comment | + + | [facility] | + + + +---------+ + + | Performing | Address | City/State/Zipcode | Phone Number | | Organization | | | | + +---------+ + + | EXTERNAL LAB | | | | + +---------+ + + External Lab: Cholesterol, HDL (05/19/2015 8:59 AM PST) + +-------+ + + + | Component | Value | Ref Range | Performed | Pathologist | | | | | At | Signature | + +-------+ + + + | HDL | 63.5 | 40 mg/dl | EXTERNAL | | | Cholesterol | | | LAB | | | , External | | | | | + +-------+ + + + + + | Specimen | + + | Blood specimen | | (specimen) | + + + + | Resulting Agency Comment | + + | [facility] | + + + +---------+ + + | Performing | Address | City/State/Zipcode | Phone Number | | Organization | | | | + +---------+ + + | EXTERNAL LAB | | | | + +---------+ + + External Lab: Cholesterol, Total (05/19/2015 8:59 AM PST) + +---------+ + + + | Component | Value | Ref Range | Performed | Pathologist | | | | | At | Signature | + +---------+ + + + | Cholesterol | 204 (A) | 200 mg/dl | EXTERNAL | | | , Total, | | | LAB | | | External | | | | | + +---------+ + + + + + | Specimen | + + | Blood specimen | | (specimen) | + + + + | Resulting Agency Comment | + + | [facility] | + + + +---------+ + + | Performing | Address | City/State/Zipcode | Phone Number | | Organization | | | | + +---------+ + + | EXTERNAL LAB | | | | + +---------+ + + External Lab: Cholesterol, LDL (05/19/2015 8:59 AM PST) + +---------+ + + + | Component | Value | Ref Range | Performed | Pathologist | | | | | At | Signature | + +---------+ + + + | LDL | 125 (A) | 100 | EXTERNAL | | | Cholesterol | | | LAB | | | , Direct, | | | | | | External | | | | | + +---------+ + + + + + | Specimen | + + | Blood specimen | | (specimen) | + + + + | Resulting Agency Comment | + + | [facility] | + + + +---------+ + + | Performing | Address | City/State/Zipcode | Phone Number | | Organization | | | | + +---------+ + + | EXTERNAL LAB | | | | + +---------+ + + Lipid Panel (05/19/2015 8:57 AM PST) + +---------+ + + + | Component | Value | Ref Range | Performed | Pathologist | | | | | At | Signature | + +---------+ + + + | VLDL | 16 | 4 - 40 | | | | Cholesterol | | | | | | Jaime | | | | | + +---------+ + + + | Chol/HDL | 3.2 | 4.4 | | | | Ratio | | | | | + +---------+ + + + | Non-HDL | 141 (A) | 130 | | | | Cholesterol | | | | | + +---------+ + + + + + | Specimen | + + | Blood specimen | | (specimen) | + + documented in this encounter Visit Diagnoses Not on filedocumented in this encounter"
--- OUTSIDE RECORDS SUMMARY | ~2019-04-12 | XMS | Encounter Summary ---
Demographics + + + | Address | [address] | | | [place] [address] | + + + | Home Phone [...] | [facility] | | | and [place] | + + + | Organization | [facility] | [...] | | | | | [place] [address] | | + + + + + | Hunter Jackson | ECON | [place] | | + + + + + | Wes Jackson | ECON | [place], [place] | | + + + + + | Oziel Jackson | ECON | [place], [place] | | + + + + + Care Team Providers + +------+ + | Care Shift Foreman Name | Role | Phone | + +------+ + | Rodolfo Cruz MD | PCP | | + +------+ + Encounter Details +--------+ + + + + | Date | Type | Department | Care Team | Description | +--------+ + + + + | 06/02/ | Hospital [facility] | Rodolfo Cruz, | Osteoarthritis | | 2012 - | Encounter | [facility] CTR LAB[facility]ORY | MD [address] | | | | | [address] [place] | [place] [address] | | | 06/04/ | | [place] | [address] | | | 2012 | | [address] | | | | | | [phone] | | | +--------+ + + + [...] STREETER | | | | | | [address] | | | | | | | | +--------+---------+ + + + | 11/21/ | Office | Cardiology | Yesi, | | | 2019 | Visit | | JOSE ALBERTO Linder [address] | | | | | | [place] | | | | | | [place] [address] | | | | | | [phone] | | | | | | | [...] + | [facility] | [address] | [place], [place] | [phone] | | [facility] | | [address] | | | - LABORATORY | | | | + + + + + | [facility] | [address] | [place], [place] | | | [facility] | | [address] | | | - LABORATORY | | [...] [address] | [place] | [phone] | | [facility] | | [address] | | | - LABORATORY | | | | + + + + + | [facility] | [address] | [place] | | | [facility] | | [address] | | | - LABORATORY | | | | + + + + + documented in this encounter Visit Diagnoses + + | Diagnosis | + + | Osteoarthritis Osteoarthrosis, unspecified whether generalized or localized, | | unspecified site | + + documented in this encounter"
--- OUTSIDE RECORDS SUMMARY | ~2019-04-12 | XMS | Encounter Summary ---
Demographics + + + | Address | [address] | | | [place] [address] | + + + | Home Phone [...] Author | [facility] | | | and [place] | + + + | Organization | [facility] | | [...] [place] | | | | | [place] [address] | | + + + + + | Hunter Jackson | ECON | [place] | | + + + + + | Wes Jackson | ECON | [place], [place] | | + + + + + | Oziel Jackson | ECON | [place], [place] | | + + + + + Care Team Providers + +------+ + | Care Clinical Neuropsychologist Name | Role | Phone | + [...] + + | 08/01/ | Office | [facility] | Yesi, | Aortic valve | | 2017 | Visit | CARDIOLOGY [address] | JOSE ALBERTO Linder [address] | insufficiency, | | | | [place], | [place], | unspecified etiology | | | | [place] [address] | [place] [address] | (Primary Dx); | | | | [phone] | [phone] | Essential | | | | | [...] ECG's available Confirmed by CHRISTOPHER ARECHIGA MD ([id number]) on 07/04/2016 6:13:25 AM LAB RESULTS reviewed during visit today primarily from [facility]: LIPID Lab Results Component Value [...] PLTEX 381 05/08/2016 I reviewed records from [facility] for office visit on 02which is s [...] A. Seen in the emergency room at [facility] for chest pain. Sh e was schedule for stress test and discharged home. B. Stress Test 05/16/16, is maximal asymptomatic stress test, [facility] very poor function status, achieving maximal heart [...] failure.She is in a class I of [place] [employer] functional class. There is n [...] this chart may have been created with [employer] voice recognition software. Occasi onal wrong-word or [...] STREETER | | | | | | [id number] | | | | | | | | +--------+---------+ + + + | 11/21/ | Office | Cardiology | Yesi, | | | 2019 | Visit | | JOSE ALBERTO Linder [address] | | | | | | [place], | | | | | | [place] [address] | | | | | | [phone] | | | | | | | [...]
--- OUTSIDE RECORDS SUMMARY | ~2019-04-12 | XMS | Encounter Summary ---
Demographics + + + | Address | [address] | | | [place] [address] | + + + | Home Phone [...] | [facility] | | | and [place] | + + + | Organization | [facility] | | | and [place] | + + + | Address | Unknown | + + + | Phone | Unavailable | + + + Support + + + + + | Name | Relationship | Address | Phone | + + + + + | Osmin Jackson | ECON | [address] | | | | | [place] [address] | | + + + + + | Hunter Jackson | ECON | [place] | | + + + + + | Wes Jackson | ECON | [place], [place] | | + + + + + | Oziel Jackson | ECON | [place], [place] | | + + + + + Care Team Providers + +------+ + | Care Test Case Developer Name | Role | Phone | [...] | +--------+ + + + + | 02/16/ | Telephone | [facility] | Rodolfo Cruz, | Appointment | | 2013 | | MEDICINE [address] [place] [address] | MD [address] | | | | | [address] | [place] [address] | | | | | [place] [address] | [address] | | | | | [phone] | | | +--------+ + + + [...] | | | | | | [place] [address] | | | | | | [phone] | | | | | | | | +--------+---------+ + + + documented as of this encounter Visit Diagnoses Not on filedocumented in this encounter"
--- OUTSIDE RECORDS SUMMARY | ~2019-04-12 | XMS | Encounter Summary ---
Demographics + + + | Address | [address] | | | [place] [address] | + + + | Home Phone [...] + | Author | [facility] | | | and [place] | + + + | Organization | [facility] [...] | | | | | [place] [address] | | + + + + + | Hunter Jackson | ECON | [place] | | + + + + + | Wes Jackson | ECON | [place], [place] | | + + + + + | Oziel Jackson | ECON | [place], [place] | | + + + + + Care Team Providers + +------+ + | Care Artificial Flowers Dyer Name | Role | Phone | + [...] Heart | MD Irina | [address] | | | | | murmur | [address] | [place], | | | | | Procedures | [address] | [place] | | | | | ECHO | [place], | [address] | | | | | Complete [place] | [place] [address] | Phone: | | | | | ECHO HEART | Phone: | [phone] | | | | | [place] | [phone] | Fax: | | | | | [address] | Fax: | [phone] | | | | | [place] | [phone] | | | | | | ECHO [...] Heart | MD Irina | [address] | | | | | murmur | [address] | [place], | | | | | Procedures | [address] | [place] | | | | | ECHO | [place], | [address] | | | | | Complete [place] | [place] [address] | Phone: | | | | | ECHO HEART | Phone: | [phone] | | | | | [place] | [phone] | Fax: | | | | | [address] | Fax: | [phone] | | | | | [place] | [phone] | | | | | | ECHO [...] | 10/25/ | Hospital | [facility] | Irina Simms, | Heart murmur | | 2015 | Encounter | MED CTR ECHO [address] | MD [address] | | | | | [place] | [facility], | | | | | [place] [address] | [place] [address] | | | | | [phone] | [phone] | | | | | | | [...] | | | | | | [place] [address] | | | | | | [phone] | | | | | | | [...] Performed At | + + + | [facility] ECHOCARDIOGRAM REPORT | [place] | | STUDY DATE: 10/25/2014 PATIENT NAME: Soumya Jackson : | [employer] [facility] | | 1935 PCP: Rodolfo Cruz MD CLINICAL [facility] | | HISTORY/DIAGNOSIS: MURMUR A transthoracic [...] by: | | | Irina Simms MD [facility] 10/25/2014 11:39 | | | Loan Associate: Samm Caceres, NANCYCS, RVT, RDMS | | + + + + + + + + | Performing | Address | City/State/Zipcode | Phone Number | | Organization | | | | + + + + + | [facility] | [address] | [place] | [phone] | | [facility] | | [address] | | | - IMAGING | | [...]
--- OUTSIDE RECORDS SUMMARY | ~2019-04-12 | XMS | Encounter Summary ---
Demographics + + + | Address | [address] | | | [place] [address] | + + + | Home Phone [...] [facility] | | | and [place] | + + + | Organization | [facility] | | [...] | | | | | [place] [address] | | + + + + + | Hunter Jackson | ECON | [place] | | + + + + + | Wes Jackson | ECON | [place], [place] | | + + + + + | Oziel Jackson | ECON | [place], [place] | | + + + + + Care Team Providers + +------+ + | Care Coat Padder Name | Role | Phone | + [...] | 12/11/ | Refill | [facility] | Rodolfo Cruz, | Medication Refill | | 2016 | | MEDICINE [address] | MD [address] | | | | | [place] | [place] [address] | | | | | [place] [address] | [address] | | | | | [phone] | | | +--------+--------+ + + + [...] | | | | | | [place] [address] | | | | | | [phone] | | | | | | | | +--------+---------+ + + + documented as of this encounter Visit Diagnoses Not on filedocumented in this encounter"
--- OUTSIDE RECORDS SUMMARY | ~2019-04-12 | XMS | Encounter Summary ---
Demographics + + + | Address | [address] | | | [place] [address] | + + + | Home Phone [...] Author | [facility] | | | and [place] | + + + | Organization | [facility] | | | and [place] | + + + | Address | Unknown | + + + | Phone | Unavailable | + + + Support + + + + + | Name | Relationship | Address | Phone | + + + + + | Osmin Jackson | ECON | [address] | | | | | [place] [address] | | + + + + + | Hunter Jackson | ECON | [place] | | + + + + + | Wes Jackson | ECON | [place], [place] | | + + + + + | Oziel Jackson | ECON | [place], [place] | | + + + + + Care Team Providers + +------+ + | Care Bar And Filler Assembler Name | Role | Phone | [...] + + | 08/16/ | Telephone | [facility] | Rodolfo Cruz, | Lab Order | | 2015 | | MEDICINE [facility] [address] | MD [address] | | | | | [place] | [place] | | | | | [place] [address] | [address] | | | | | [phone] | | | +--------+ + + + [...] | | | | | | [place] [address] | | | | | | [phone] | | | | | | | | +--------+---------+ + + + documented as of this encounter Visit Diagnoses Not on filedocumented in this encounter"
--- OUTSIDE RECORDS SUMMARY | ~2019-04-12 | XMS | Encounter Summary ---
Demographics + + + | Address | [address] | | | [place] [address] | + + + | Home Phone [...] + | Author | [facility] | | | and [place] | + + + | Organization | [facility] | [...] | | | | | [place] [address] | | + + + + + | Hunter Jackson | ECON | [place] | | + + + + + | Wes Jackson | ECON | [place], [place] | | + + + + + | Oziel Jackson | ECON | [place], [place] | | + + + + + Care Team Providers + +------+ + | Care Strap Buckler Name | Role | Phone | + [...] | [address] | | | | | [address] | | | | | | [phone] | | | +--------+--------+ + + + [...] | | | | | | [place] [address] | | | | | | [phone] | | | | | | | | +--------+---------+ + + + documented as of this encounter Visit Diagnoses + + | Diagnosis | + + | Hypothyroidism - Primary Unspecified hypothyroidism | + + documented in this encounter"
--- OUTSIDE RECORDS SUMMARY | ~2019-04-12 | XMS | Encounter Summary ---
Demographics + + + | Address | [address] | | | [place] [address] | + + + | Home Phone | | + + + | Preferred Language | Unknown | + + + | Marital Status | | + + + | Orthodox Affiliation | Unknown | + + + | Race | Unknown | + + + | Ethnic Group | Unknown | + + + Author + + + | Author | [facility] | | | and [place] | + + + | Organization | [facility] [...] | | | | | [place] [address] | | + + + + + | Hunter Jackson | ECON | [place] | | + + + + + | Wes Jackson | ECON | [place], [place] | | + + + + + | Oziel Jackson | ECON | [place], [place] | | + + + + + Care Team Providers + +------+ + | Care Cost Engineer Name | Role | Phone | [...] + + | 05/25/ | Office | [facility] [place] | Ulysses Jensen, | Osteoarthritis of | | 2016 | Visit | ORTHOPEDIC SURGERY | [address] | first | | | | [address] [facility] | [place] [address] | carpometacarpal | | | | [place] | [address] | (CMC) joint of one | | | | [address] | | hand (Primary Dx); | | | | [phone] | | Rotator cuff | | | [...] [place] | | | | | | [address] | | | | | | | | +--------+---------+ + + + | 11/21/ | Office | Cardiology | Yesi, | | | 2019 | Visit | | JOSE ALBERTO Linder [address] | | | | | | [place], | | | | | | [place] [address] | | | | | | [phone] | | | | | | | [...]
--- OUTSIDE RECORDS SUMMARY | ~2019-04-12 | XMS | Encounter Summary ---
Demographics + + + | Address | [address] | | | [place] [address] | + + + | Home Phone [...] | Author | [facility] | | | and [place] | + + + | Organization | [facility] [...] | | | | | [place] [address] | | + + + + + | Hunter Jackson | ECON | [place] | | + + + + + | Wes Jackson | ECON | [place], [place] | | + + + + + | Oziel Jackson | ECON | [place], [place] | | + + + + + Care Team Providers + +------+ + | Care Stencil Sprayer Name | Role | Phone | + +------+ + | Rodolfo Cruz MD | PCP | | + +------+ + Encounter Details +--------+ + + + + | Date | Type | Department | Care Team | Description | +--------+ + + + + | 09/03/ | Hospital | [facility] | Rodolfo Cruz, | Hypertension | | 2012 | Encounter | MED CTR LABORATORY | MD Raya RASHID | | | | | [address] [place] | [place] [address] | | | | | [place] | [address] | | | | | [address] | | | | | | [phone] | | | +--------+ + + + [...] | | | | | | [place] [address] | | | | | | [phone] | | | | | | | [...] + + + + | Color | YELLOW | | [facility] | | | | [...] - 1.030 | [facility] | | | [place] | | | [facility] | | [...] + | [facility] | [address] | [place] | [phone] | | [facility] | | [address] | | | - LABORATORY | | | | + + + + + | [facility] | [address] | [place] | | | [facility] | | [address] | | | - LABORATORY | | [...] + | [facility] | [address] | [place], [place] | [phone] | | [facility] | | [address] | | | - LABORATORY | | | | + + + + + | [facility] | [address] | [place] | | | [facility] | | [address] | | | - LABORATORY | | [...] | | GFR | -Americans, | | [facility] | | | | please multiply [...] [address] | [place] | [phone] | | [facility] | | [address] | | | - LABORATORY | | | | + + + + + | [facility] | [address] | [place] | | | [facility] | | [address] | | | - LABORATORY | | [...] (H) | 7 - 18 mg/dL | [facility] | | | | | | [facility] | | | | | | MEDICAL | | | | | | CENTER - | | | | | | LABORATORY | | + + + + + + | Creatinine | 0.91 | 0.60 - 1.30 | [facility] | | | | | mg/dL | [facility] | | | | | | MEDICAL | | | | | | CENTER - | | | | | | LABORATORY | | + + + + + + | Estimated | 60Comment: For | >60 mL/min/A | [facility] | | | GFR | -Americans, | | [facility] | | | | please multiply [...] + | [facility] | [address] | [place] | [phone] | | [facility] | | [address] | | | - LABORATORY | | | | + + + + + | [facility] | [address] | [place] | | | [facility] | | [address] | | | - LABORATORY | | [...] | | Eosinophils | | | [facility] | | | | | | MEDICAL [...] | + + + + + | [facility] | [address] | [place] | [phone] | | [facility] | | [address] | | | - LABORATORY | | | | + + + + + | [facility] | [address] | [place], [place] | | | [facility] | | [address] | | | - LABORATORY | | [...] + + + + | Color | YELLOW | | [facility] | | | | [...] - 1.030 | [facility] | | | [place] | | | [facility] | | [...] | | | [place], | | | [facility] | | | Urine | | [...] [address] | [place] | [phone] | | [facility] | | [address] | | | - LABORATORY | | | | + + + + + | [facility] | [address] | [place] | | | [facility] | | [address] | | | - LABORATORY | | | | + + + + + documented in this encounter Visit Diagnoses + + | Diagnosis | + + | Hypertension Unspecified essential hypertension | + + documented in this encounter"
--- OUTSIDE RECORDS SUMMARY | ~2019-04-12 | XMS | Encounter Summary ---
Demographics + + + | Address | [address] | | | [place] [address] | + + + | Home Phone [...] | Author | [facility] | | | and [place] | + + + | Organization | [facility] | | [...] | | | | | [place] [address] | | + + + + + | Hunter Jackson | ECON | [place] | | + + + + + | Wes Jackson | ECON | [place], [place] | | + + + + + | Oziel Jackson | ECON | [place], [place] | | + + + + + Care Team Providers + +------+ + | Care Lubrication Supervisor Name | Role | Phone | [...] Description | +--------+--------+ + + + | 02/14/ | Refill | [facility] | Rodolfo Cruz, | Medication Refill | | 2016 | | MEDICINE [address] | MD [address] | | | | | [place] | [place] [address] | | | | | [place] [address] | [address] | | | | | [phone] | | | +--------+--------+ + + + [...] 06/02/ | Office | Orthopedic Surgery | Ulyssse Jensne, | | | 2019 | Visit | [...] | | | | | | [place] [address] | | | | | | [phone] | | | | | | | | +--------+---------+ + + + documented as of this encounter Visit Diagnoses Not on filedocumented in this encounter"
--- OUTSIDE RECORDS SUMMARY | ~2019-04-12 | XMS | Encounter Summary ---
Demographics + + + | Address | [address] | | | [place] [address] | + + + | Home Phone [...] | Author | [facility] | | | and [place] | + + + | Organization | [facility] | [...] | | | | | [place] [address] | | + + + + + | Hunter Jackson | ECON | [place] | | + + + + + | Wes Jackson | ECON | [place], [place] | | + + + + + | Ozile Jackson | ECON | [place], [place] | | + + + + + Care Team Providers + +------+ + | Care Sterile Process Tech Name | Role | Phone | + +------+ + | Angelica Klein MD | PCP | | + +------+ + Reason for Visit + + + | Reason | Comments | + + + | Follow-up | right shoulder and right 1st cmc joint injection | + + + Encounter Details +--------+---------+ + + + | Date | Type | Department | Care Team | Description | +--------+---------+ + + + | 06/06/ | Office | [facility] | Ulysses Jensen, | Rotator cuff | | 2017 | Visit | ORTHOPEDIC SURGERY | [facility] | syndrome, right | | | | [address] [facility] | [place] | (Primary Dx); [facility] | | | | [place] | [address] | arthritis | | | | [address] | | | | | | [phone] | | | +--------+---------+ + + + [...] encounter Progress Notes Ulysses Jensen MD - 06/07/2016 8:34 AM PST Patient returns for right shoulder and first cmc injections Under sterile conditions today I injected her right shoulder subacromial space with kenalog 40mg and 3cc naropin Then under sterile conditions I injected her right first cmc joint with celestone 1/2 cc an d naropin 1/2 cc She will return as needed documented in this encounter Plan of Treatment +--------+---------+ + + + | Date | Type | Specialty | Care Team | Description | +--------+---------+ + + + | 06/02/ | Office | Orthopedic Surgery | Ulysses Jensen, | | | 2019 | Visit | | MD Danny [address] | | | | | | [place], [place] | | | | | | [address] | | | | | | | | +--------+---------+ + + + | 11/21/ | Office | Cardiology | Yesi, | | | 2019 | Visit | | JOSE ALBERTO Linder [address] | | | | | | [place], | | | | | | [place] [address] | | | | | | [phone] | | | | | | | [...] + | betamethasone (CELESTONE | Given | 06/06/19 | 3 mg | | Other | | SOLUSPAN) injection 3 mg 3 mg, | | 17 11:26 | | | (Comment | | Intra-articular, EVERY 24 HOURS | | AM PST | | | ) | | INTERVAL, First dose on Fri | | | | | | | 06/06/16 at 1145, For 1 dose, | | | | | | | Shake well. Not for IV use., | | | | | | + +--------+ +------+------+ + +---+---+ | | | +---+---+ + +-------+ +-------+---+ + | triamcinolone acetonide | Given | 06/06/19 | 40 mg | | Shoulder | | (KENALOG-40) 40 mg/mL injection | | 17 11:27 | | | -Right | | 40 mg 40 mg, Intra-articular, | | AM PST | | | | | ONCE, [facility] 06/06/16 at 1145, For 1 | | | | | | | dose, Shake well. Not for IV | | | | | | | use., | | | | | | + +-------+ +-------+---+ + +---+---+ | | | +---+---+ documented in this encounter"
--- OUTSIDE RECORDS SUMMARY | ~2019-04-12 | XMS | Encounter Summary ---
Demographics + + + | Address | [address] | | | [place] [address] | + + + | Home Phone [...] | Author | [facility] | | | and [place] | + + + | Organization | [facility] [...] [place] | | | | | [place] [address] | | + + + + + | Hunter Jackson | ECON | [place] | | + + + + + | Wes Jackson | ECON | [place], [place] | | + + + + + | Oziel Jackson | ECON | [place], [place] | | + + + + + Care Team Providers + +------+ + | Care Food Service Supervisor Name | Role | Phone | + +------+ + | Gunderson, Kellie PA | PCP | | + +------+ + Reason for Visit + + + | Reason | Comments | + + + | Follow-up | Follow Up Right Shoulder and Right CMC Injection Last Injection | | | given on 01/15/2018 | + + + Encounter Details +--------+---------+ + + + | Date | Type | Department | Care Team | Description | +--------+---------+ + + + | 04/27/ | Office | [facility] [place] | Ulysses Jensen, | Arthritis of | | 2018 | Visit | ORTHOPEDIC SURGERY | [address] [facility] | carpometacarpal | | | | [address] [facility] | [place] | (CMC) joint of right | | | | [place], [place] | [address] | thumb (Primary Dx); | | | | [address] | | Rotator cuff tear | | | | [phone] | | arthropathy of right | | [...] Weight | 84.4 kg (186 lb) | 04/27/2018 11:49 AM | | | | | PST | | + + + + + | Height | 165.1 cm (5' 5") | 04/27/2018 11:49 AM | | | | | PST | | + + + + + | Body Mass Index | 30.95 | 04/27/2018 11:49 AM | | | | | PST | | + + + + + documented in this encounter Progress Notes Ulysses Jensen MD - 04/27/2018 11:30 AM PSTPatient returns for right shoulder injection a nd right first cmc arthritis injection 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 She is adamantly opposed to surgery for either one Under sterile conditions today I injected right shoulder subacromial space with kenalog 40m g and naropin 3cc Under sterile conditions I then injected the first cmc joint by feel with 1cc celestone and 1cc naropin Will return as needed documented in this [...] [place] | | | | | | [address] | | | | | | | | +--------+---------+ + + + | 11/21/ | Office | Cardiology | Yesi, | | | 2019 | Visit | | JOSE ALBERTO Linder [address] | | | | | | [place], | | | | | | [place] [address] | | | | | | [phone] | | | | | | | [...] + | betamethasone (CELESTONE | Given | 12/17/20 | 6 mg | | Hand-Rig | | SOLUSPAN) injection 6 mg 6 mg, | | 18 2:11 | | | ht | | Intra-articular, ONCE, Mon | | PM PST | | | | | 04/27/18 at 1430, For 1 dose, | | | | | | | Shake well. Not for IV use., | | | | | | + +--------+ +------+------+ + +---+---+ | | | +---+---+ + +-------+ +-------+---+ + | triamcinolone acetonide | Given | 04/27/20 | 40 mg | | Shoulder | | (KENALOG-40) 40 mg/mL injection | | 18 2:11 | | | -Right | | 40 mg 40 mg, Intra-articular, | | PM PST | | | | | ONCE, 04/27/18 at 1430, For 1 | | | | | | | dose, Shake well. Not for IV | | | | | | | use., | | | | | | + +-------+ +-------+---+ + +---+---+ | | | +---+---+ documented in this encounter
--- OUTSIDE RECORDS SUMMARY | ~2019-04-12 | XMS | Encounter Summary ---
Demographics + + + | Address | [address] | | | [place] [address] | + + + | Home Phone [...] | Author | [facility] | | | and [place] | + + + | Organization | [facility] [...] | | | | | [place] [address] | | + + + + + | Hunter Jackson | ECON | [place] | | + + + + + | Wes Jackson | ECON | [place], [place] | | + + + + + | Oziel Jackson | ECON | [place], [place] | | + + + + + Care Team Providers + +------+ + | Care Hot Strip Mill Inspector Name | Role | Phone | + +------+ + | Rodolfo Cruz MD | PCP | | + +------+ + Encounter Details +--------+ + + + + | Date | Type | Department | Care Team | Description | +--------+ + + + + | 08/18/ | Abstract | [facility] [place] | Harsha Selby | | | 2014 | | PHYSIATRY [address] | MD Josh [address] | | | | | [place], | [place] | | | | | [place] [address] | [address] | | | | | [phone] | | | +--------+ + + + [...] | | | | | | [place] [address] | | | | | | [phone] | | | | | | | | +--------+---------+ + + + documented as of this encounter Visit Diagnoses Not on filedocumented in this encounter"
--- OUTSIDE RECORDS SUMMARY | ~2019-04-12 | XMS | Encounter Summary ---
Demographics + + + | Address | [address] | | | [place] [address] | + + + | Home Phone [...] Author | [facility] | | | and [place] | + + + | Organization | [facility] [...] | | | | | [place] [address] | | + + + + + | Hunter Jackson | ECON | [place] | | + + + + + | Wes Jackson | ECON | [place], [place] | | + + + + + | Oziel Jackson | ECON | [place], [place] | | + + + + + Care Team Providers + +------+ + | Care Academic Guidance Specialist Name | Role | Phone | + +------+ + PCP | Unavailable | + +------+ + Encounter Details +--------+ + + + + | Date | Type | Department | Care Team | Description | +--------+ + + + + | 04/04/ | [facility] | [facility] | Rodolfo Cruz, | | | 2008 | Encounter | MED CTR XRAY [address] | [address] | | | | | [place] | [place], [place] | | | | | [place] [address] | [address] | | | | | [phone] | | | +--------+ + + + [...] | | | | | | [place] [address] | | | | | | [phone] | | | | | | | | +--------+---------+ + + + documented as of this encounter Visit Diagnoses Not on filedocumented in this encounter"
--- OUTSIDE RECORDS SUMMARY | ~2019-04-12 | XMS | Encounter Summary ---
Demographics + + + | Address | [address] | | | [place] [address] | + + + | Home Phone [...] | Author | [facility] | | | and [place] | + + + | Organization | [facility] | [...] | | | | | [place] [address] | | + + + + + | Hunter Jackson | ECON | [place] | | + + + + + | Wes Jackson | ECON | [place], [place] | | + + + + + | Oziel Jackson | ECON | [place], [place] | | + + + + + Care Team Providers + +------+ + | Care Adhesive Bandage Making Operator Name | Role | Phone | [...] + | 11/07/ | Telephone | [facility] | Irina Simms, | Blood Pressure Check | | 2015 | | CARDIOLOGY [address] | [address] [place] | (Screening) | | | | [place], | [place], | | | | | [place] [address] | [place] [address] | | | | | [phone] | [phone] | | | | | | | [...] | | | | | | [place] [address] | | | | | | [phone] | | | | | | | | +--------+---------+ + + + documented as of this encounter Visit Diagnoses Not on filedocumented in this encounter"
--- OUTSIDE RECORDS SUMMARY | ~2019-04-12 | XMS | Encounter Summary ---
Demographics + + + | Address | [address] | | | [place] [address] | + + + | Home Phone [...] | [facility] | | | and [place] | + + + | Organization | [facility] [...] | | | | | [place] [address] | | + + + + + | Hunter Jackson | ECON | [place] | | + + + + + | Wes Jackson | ECON | [place], [place] | | + + + + + | Oziel Jackson | ECON | [place], [place] | | + + + + + Care Team Providers + +------+ + | Care Social Work Case Manager Name | Role | Phone | [...] Description | +--------+--------+ + + + | 03/01/ | Refill | [facility] | Rodolfo Cruz, | Medication Refill | | 2013 | | MEDICINE [address] | [address] | | | | | [place] | [place] | | | | | [place] [address] | [address] | | | | | [phone] | | | +--------+--------+ + + + [...] | | | | | | [place] [address] | | | | | | [phone] | | | | | | | | +--------+---------+ + + + documented as of this encounter Visit Diagnoses + + | Diagnosis | + + | Back pain - Primary Backache, unspecified | + + documented in this encounter"
--- OUTSIDE RECORDS SUMMARY | ~2019-04-12 | XMS | Encounter Summary ---
Demographics + + + | Address | [address] | | | [place] [address] | + + + | Home Phone [...] Author | [facility] | | | and [place] | + + + | Organization | [facility] | [...] | | | | | [place] [address] | | + + + + + | Hunter Jackson | ECON | [place] | | + + + + + | Wes Jackson | ECON | [place], [place] | | + + + + + | Oziel Jackson | ECON | [place], [place] | | + + + + + Care Team Providers + +------+ + | Care Oil Well Driller Name | Role | Phone | [...] + + | 11/26/ | Office | [facility] | Rodolfo Cruz, | Memory loss (Primary | | 2016 | Visit | MEDICINE [address] | [address] | Dx); [place], | | | | [address] [place] | [place] | unspecified | | | | [place] [address] | [address] | | | | | [phone] | | | +--------+---------+ + + + [...] No raúl rgy. With ER visit in [place] last week. This is persisting except for [...] [address] | | | | | | [place], | | | | | | [place] [address] | | | | | | [phone] | | | | | | | [...] [address] | [place] | [phone] | | [facility] | | [address] | | | - LABORATORY | | [...] | | 25 Hydroxy | | | [facility] | | [...] [address] | [place] | [phone] | | [facility] | | [address] | | | - LABORATORY | | [...] [address] | [place] | [phone] | | [facility] | | [address] | | | - LABORATORY | | | | + + + + + documented in this encounter Visit Diagnoses + + | Diagnosis | + + | Memory loss - Primary | + + | Urticaria, unspecified | + + documented in this encounter
--- OUTSIDE RECORDS SUMMARY | ~2019-04-12 | XMS | Encounter Summary ---
Demographics + + + | Address | [address] | | | [place] [address] | + + + | Home Phone [...] | [facility] | | | and [place] | + + + | Organization | [facility] | [...] | | | | | [place] [address] | | + + + + + | Hunter Jackson | ECON | [place] | | + + + + + | Wes Jackson | ECON | [place], [place] | | + + + + + | Oziel Jackson | ECON | [place], [place] | | + + + + + Care Team Providers + +------+ + | Care Invoice Coder Name | Role | Phone | + +------+ + | Sugar Cruz MD | PCP | | + +------+ + Reason for Visit + + + | Reason | Comments | + + + | Follow-up | ER on friday | + + + Evaluate & Treat (Urgent) [...] | Services | y | Recurrent | Sugar Reilly MD | MD Gabriel [address] | | | Required | | epistaxis | [address] | | | | | | [address] [place] | [address] | | | | | | [place], [place] | [place], | | | | | | [address] | [place] [address] | | | | | | Phone: | Phone: | | | | | | [phone] | [phone] | | | | | | Fax: | Fax: | | | | | | [phone] | [phone] | +--------+ + + + + + Encounter Details +--------+---------+ + + + | Date | Type | Department | Care Team | Description | +--------+---------+ + + + | 09/08/ | Office | [facility] | Zion Valencia MD | Epistaxis (Primary | | 2014 | Visit | OTOLARYNGOLOGY [address] | [address] | Dx) | | | | [address] | [address] [place], | | | | | [place] | [place] [address] | | | | | [address] | [phone] | | | | | [phone] | | | +--------+---------+ + + + [...] + + + | Blood Pressure | 168/70 | 09/08/2014 3:46 PM | | | | | PDT | | + + + + + | Pulse | 57 | 09/08/2014 3:46 PM | | | | | PDT | | + + + + + | Temperature | - | - | | + + + + + | Respiratory Rate | 12 | 09/08/2014 3:46 PM | | | | | PDT | | + + + + + | Oxygen Saturation | 97% | 09/08/2014 3:46 PM | | | | | PDT | | + + + + + | Inhaled Oxygen | - | - | | | Concentration | | | | + + + + + | Weight | 85.7 kg (189 lb) | 09/08/2014 3:46 PM | | | | | PDT | | + + + + + | Height | 162.6 cm (5' 4") | 09/08/2014 3:46 PM | | | | | PDT | | + + + + + | Body Mass Index | 32.44 | 09/08/2014 3:46 PM | | | | | PDT | | + + + + + documented in this encounter Progress Notes Zion Valencia MD - 09/08/2014 4:07 PM PDT [facility] OT[facility]ARYNGOLOGY [address] [facility] [address] OFFICE NOTE ZION VALENCIA MD Patient: JACLYN JACKSON Admitting: MR #: [id number] LOC: PT TYPE: Adm Date: 09/08/2014 : 1937 OFFICE VISIT DATE OF VISIT: 09/08/2014 HISTORY: The patient has had problems with recurrent epistaxis. She was seen about a wee k ago in the office and treated. She had bleeding again on 09/05, but seen in the emergenc y room. By the time she was seen, it had stopped. She continues to put the A and D ointme nt in this area. She comes in to see if there is any other treatment that needs to occur. She is not having any other problems. EXAMINATION: The examination shows a scabbed area up high on the septum about a [address] back from the front. The rest of the septum, otherwise, appears to be quite stable a nd healthy. TREATMENT: This scab was gently removed after the area had been sprayed with some Adonis-Syn ephrine and topical Xylocaine. Once removed, there was a small bleeding area underneath it and most likely the spot where she has been having the bleeding from. The area was then t reated further with some silver nitrate to cauterize this area to help it thicken up. Once this was completed, there was no further bleeding. Some antibiotic ointment was applied t o the area and the patient was shown where she needs to put the ointment. Its deeper than she had realized and she will continue to put ointment up in there regularly. She will rec heck with ENT as needed. ZION VALENCIA MD Dictated by ZION VALENCIA MD 09/08/2014 16:07:00 Transcribed on 09/08/2014 21:04:56 by job# [id number] Confirmation #: [id number] cc: SUGAR CRUZ MD chiquitaZion cain MD - 09/08/2014 4:04 PM PDTSee dictation # [id number] signed by Zion Valencia MD at 09/08/2014 4:08 PM PDTdocumented in th is encounter Plan of Treatment +--------+---------+ + + + | Date | Type | Specialty | Care Team | Description | +--------+---------+ + + + | 06/02/ | Office | Orthopedic Surgery | Ulysses Jensen, | | | 2019 | Visit | | MD [address] | | | | | | [place] [address] | | | | | | [address] | | | | | | | | +--------+---------+ + + + | 11/21/ | Office | Cardiology | Yesi, | | | 2019 | Visit | | JOSE ALBERTO Linder [address] | | | | | | [place] | | | | | | [place] [address] | | | | | | [phone] | | | | | | | | +--------+---------+ + + + documented as of this encounter Visit Diagnoses + + | Diagnosis | + + | Epistaxis - Primary | + + documented in this encounter
--- OUTSIDE RECORDS SUMMARY | ~2019-04-12 | XMS | Encounter Summary ---
Demographics + + + | Address | [address] | | | [place] [address] | + + + | Home Phone [...] | Author | [facility] | | | and [place] | + + + | Organization | [facility] [...] | | | | | [place] [address] | | + + + + + | Hunter Jackson | ECON | [place] | | + + + + + | Wes Jackson | ECON | [place], [place] | | + + + + + | Oziel Jackson | ECON | [place], [place] | | + + + + + Care Team Providers + +------+ + | Care Lead Coater Name | Role | Phone | [...] | | | pain, right | | [place] | | | | | upper | | [place], [place] | | | | | quadrant | | [address] | | | | | Back pain | | Phone: | | | | | Hyperlipidem | | [phone] | | | | | ia Upper GI | | Fax: | | | | | bleeding | | [phone] | | | | | Hypothyroidi | [...] + + | 11/14/ | Hospital | [facility] | Freddy, | Upper GI bleeding | | 2014 - | Encounter | MED [facility] | Rodolfo Desir MD [address] | (Primary Dx); | | | | [address] [place] | [address] [place] | Duodenal ulcer; | | 11/17/ | | [place] [address] | [place] [address] | Asthma; | | 2013 | | [phone] | [phone] | Hyperlipidemia; Back | | | | | | pain; | | | | | Peng Godinez, | Hypothyroidism; | | | | | [address] | Hypertension; | | | | | [place], [place] | Abdominal pain, | | | | | [address] | right upper | | | | [...] might be different f rom the original. [facility] Service: Hospitalist Physician Discharge Summary Pt: Soumya Jackson AGE/SEX: 78 y.o. female ROOM: [address] [place] [address] PCP: Rodolfo Cruz : 1935 Admit date: [...] upper GI bleed(duodenal ulcers) leading to ac tohono [place] blood loss anemia. 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 You may get these medications from any [...] might be different f rom the original. [facility] Service: Hospitalist Progress Note Pt: Soumya Jackson AGE/SEX: 78 y.o. female ROOM: [address] [place] [address] : 1935 PCP: Rodolfo rCuz ADMIT DATE: 11/14/2013 TODAY'S DATE: 11/16/2013 Hospital Day/Hospital Course: LOS: 2 days 78 years old female past medical history of hypothyroidism, benign hypertension, hyperlipid emia came to the hospital with weakness due to upper GI bleed(duodenal ulcers) leading to ac tohono [place] blood loss anemia. She is status post [...] mg/hr (11/16/13 0651) PRN Medications albuterol, [COMPLETED] lphpicbd-cpmasuvjqz-xmxufvfxzj, diphenhydrAMINE, HYDROcodone-acetami nophen, HYDROmorphone, LORazepam, [COMPLETED] meperidine, [...] upper GI bleed(duodenal ulcers) leading to ac tohono [place] blood loss anemia. She is status post [...] PM PDT HOSPITALIST PROGRESS NOTE on 11/15/2013 [facility] Pt. Name/Age/: Soumya Jackson 78 y.o. 1935 Med. Record Number: [id number] Primary Care Physician: Rodolfo Cruz Date of [...] -- No results found for this basename: PHART:3,PO2ART:3,ZLA7QSU:3,E2NTQZYO:3,BEART:[address] 168 hours No [...] signed by: Peng Godinez MD, 11/15/2013 12:08 [facility] Portions of this chart may have been created withAdku voice recognition software. Occas ional wrong-word or [...] [place] | | | | | | [address] | | | | | | | | +--------+---------+ + + + | 11/21/ | Office | Cardiology | Yesi, | | | 2019 | Visit | | JOSE ALBERTO Linder [address] | | | | | | [place], | | | | | | [place] [address] | | | | | | [phone] | | | | | | | [...] + + + | UNIT # | [id number] | | [facility] | | | | [...] + | [facility] | [address] | [place] | | | [facility] | | [address] | | | - BLOOD BANK | [...] + + + | UNIT # | [id number] | | [facility] | | | | [...] ST. | [address] | [place] | | | [facility] | | [address] | | | - BLOOD BANK | [...] | Basophils | | K/uL | [facility] | | | | | | MEDICAL [...] [address] | [place] | [phone] | | [facility] | | [address] | | | - LABORATORY | | | | + + + + + | [facility] | [address] | [place], [place] | | | [facility] | | [address] | | | - LABORATORY | | [...] mL/min/1.73m2 | [facility] | | | UKRAINIAN | RATE,ESTIMATED | | MEDICAL | | | | mL/min/1.49h8Tqpg than | | CENTER - | | [...] + | [facility] | [address] | [place] | [phone] | | [facility] | | [address] | | | - LABORATORY | | | | + + + + + | [facility] | [address] | [place] | | | [facility] | | [address] | | | - LABORATORY | | [...] + | [facility] | [address] | [place], [place] | [phone] | | [facility] | | [address] | | | - LABORATORY | | | | + + + + + | [facility] | [address] | [place], [place] | | | [facility] | | [address] | | | - LABORATORY | | [...] + | [facility] | [address] | [place] | [phone] | | [facility] | | [address] | | | - LABORATORY | | | | + + + + + | [facility] | [address] | [place] | | | [facility] | | [address] | | | - LABORATORY | | [...] [address] | [place] | [phone] | | [facility] | | [address] | | | - LABORATORY | | | | + + + + + | [facility] | [address] | [place] | | | [facility] | | [address] | | | - LABORATORY | | [...] [address] | [place] | [phone] | | [facility] | | [address] | | | - LABORATORY | | | | + + + + + | [facility] | [address] | [place] | | | [facility] | | [address] | | | - LABORATORY | | [...] | | FILTRATION | mL/min/1.73m2 | [facility] | | | UKRAINIAN | RATE,ESTIMATED | | MEDICAL | | | | mL/min/1.09s3Ufcb than | | CENTER - | | [...] + | [facility] | [address] | [place] | [phone] | | [facility] | | [address] | | | - LABORATORY | | | | + + + + + | [facility] | [address] | [place] | | | [facility] | | [address] | | | - LABORATORY | | [...] + | [facility] | [address] | [place], [place] | [phone] | | [facility] | | [address] | | | - LABORATORY | | | | + + + + + | [facility] | [address] | [place], [place] | | | [facility] | | [address] | | | - LABORATORY | | [...] + | [facility] | [address] | [place] | [phone] | | [facility] | | [address] | | | - LABORATORY | | | | + + + + + | [facility] | [address] | [place] | | | [facility] | | [address] | | | - LABORATORY | | | | + + + + + EGD (11/15/2013 2:09 PM PDT) + + | Specimen | + + | | + + + + --+ | Narrative | Performed A t | + + --+ | | [facility] | | GastroenterologyPatient Name: Soumya Sydney Date: 11/15/2013 2:09 | PROVATION | | PMMRN: [id number] #: [id number] of : 8Admit | | | Type: InpatientAge: 78[facility]: [facility]Gender: FemaleNote Status: | | | FinalizedAttending [...] the nurse | | | and the organic preparation technician in the 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 Mental Status [...] On: 11/15/2013 2:09 PM | | | [facility], [address] [place] [address] | | | [place] [address] | | | - Normal duodenal bulb, [...] On: 11/15/2013 2:09 PM | | | [facility], [facility] [place], [place] | | | [address] | | + + --+ + + [...] | | Count | | | [facility] | | [...] + | [facility] | [address] | [place] | [phone] | | [facility] | | [address] | | | - LABORATORY | | | | + + + + + | [facility] | [address] | [place] | | | [facility] | | [address] | | | - LABORATORY | | [...] mL/min/1.73m2 | [facility] | | | UKRAINIAN | RATE,ESTIMATED | | MEDICAL | | | | mL/min/1.07b3Kwyz than | | CENTER - | | [...] [address] | [place] | [phone] | | [facility] | | [address] | | | - LABORATORY | | | | + + + + + | [facility] | [address] | [place] | | | [facility] | | [address] | | | - LABORATORY | | [...] + | [facility] | [address] | [place], [place] | [phone] | | [facility] | | [address] | | | - LABORATORY | | | | + + + + + | [facility] | [address] | [place], [place] | | | [facility] | | [address] | | | - LABORATORY | | [...] + | [facility] | [address] | [place] | [phone] | | [facility] | | [address] | | | - LABORATORY | | | | + + + + + | [facility] | [address] | [place] | | | [facility] | | [address] | | | - LABORATORY | | [...] St | [place] | | | [facility] | | [address] | | | - BLOOD BANK | [...] | | | FILTRATION | mL/min/1.73m2 | [facility] | | | UKRAINIAN | RATE,ESTIMATED | | MEDICAL | | | | mL/min/1.23o3Ioza than | | CENTER - | | [...] [address] | [place] | [phone] | | [facility] | | [address] | | | - LABORATORY | | | | + + + + + | [facility] | [address] | [place] | | | [facility] | | [address] | | | - LABORATORY | | [...] + | [facility] | [address] | [place], [place] | [phone] | | [facility] | | [address] | | | - LABORATORY | | | | + + + + + | [facility] | [address] | [place], [place] | | | [facility] | | [address] | | | - LABORATORY | | | | + + + + + ED INFORMATION EXCHANGE (11/14/2013 10:23 AM PDT) + + | Specimen | + + | | + + + + + | Narrative | Performed At | + + + | VISIT TRACKING (3 MO.) Visit Date Location | [facility] | | Type Diagnoses | | | -------- | | | ---- 11/14/2013 10:22 [place] | | | [facility] Emergency black stool; 11/03/2013 | | | 07:39 [facility] Emergency Back | | | Pain; [...] type, unspecified; 09/20/2013 00:12 | | | [facility] Emergency Thoracic or | | | lumbosacral neuritis or radiculitis, unspecified; | | | | | | Flank Pain; | | | | | | back/side pain; 09/15/2013 09:18 [facility] | [facility] Sprain of thoracic; | | | | | | Upper Back Pain; | | | | | | Back Pain; VISIT COUNT (1 YR.) Visits Medicaid NE Dx | | | Location ------ --------- 4 0 | | | [facility] 4 | | | 0 Total Note: Visits indicate total | | | known visits. Medicaid [place] Dx are the number of primary diagnoses on | | | the [facility]'s non-emergent dx list. | | | [...] | | +---+---+ + +-------+ +---------+---+---+ | kizzybln-axriiztrxv-mifcpxrxml | Given | 11/16/19 | 1 spray [...] | | | | | Intravenous, ONCE, Ryde 11/14/13 at | | PM PDT | [...]
--- OUTSIDE RECORDS SUMMARY | ~2019-04-12 | XMS | Encounter Summary ---
Demographics + + + | Address | [address] | | | [place] [address] | + + + | Home Phone [...] | Author | [facility] | | | and [place]ana | + + + | Organization | [facility] | [...] | | | | | [place] [address] | | + + + + + | Hunter Jackson | ECON | [place] | | + + + + + | Wes Jackson | ECON | [place], [place] | | + + + + + | Oziel Jackson | ECON | [place], [place] | | + + + + + Care Team Providers + +------+ + | Care Nurse Infection Control Name | Role | Phone | + +------+ + | Rdoolfo Cruz MD | PCP | | + +------+ + Reason for Visit + + + | Reason | Comments | + + + | Back Pain | Low back pain | + + + Encounter Details +--------+---------+ + + + | Date | Type | Department | Care Team | Description | +--------+---------+ + + + | 01/26/ | Office | [facility] | Harsha Selby | Chronic low back | | 2015 | Visit | PHYSIATRY [address] | T[address] | pain (Primary Dx); | | | | [place], | [address] [place] [address] | Facet arthritis of | | | | [place] [address] | [address] | lumbar region; DDD | | | | [phone] | | (degenerative disc | | | [...] of the procedure you must provide 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 She has appropriate fund of [...] ulcers previously with NSAIDS. She has used Creola marta in the past and is still [...] STREETER | | | | | | [address] | | | | | | | | +--------+---------+ + + + | 11/21/ | Office | Cardiology | Yesi, | | | 2019 | Visit | | JOSE ALBERTO Linder [address] | | | | | | [place] | | | | | | [place] [address] | | | | | | [phone] | | | | | | | [...] 723.1 Soumyanito Jackson presents to the | [facility] | | fluoroscopy suite for fluoroscopically guided bilateral L3 and | [facility] | | bilateral L4 [...] [address] | [place] | [phone] | | [facility] | | [address] | | | - IMAGING | | [...]
--- OUTSIDE RECORDS SUMMARY | ~2019-04-12 | XMS | Encounter Summary ---
Demographics + + + | Address | [address] | | | [place] [address] | + + + | Home Phone [...] | Author | [facility] | | | and [place]ana | + + + | Organization | [facility] | [...] | | | | | [place] [address] | | + + + + + | Hunter Jackson | ECON | [place] | | + + + + + | Wes Jackson | ECON | [place], [place] | | + + + + + | Oziel Jackson | ECON | [place], [place] | | + + + + + Care Team Providers + +------+ + | Care Food Safety Scientist Name | Role | Phone | + [...] | | | | | | [place] | [facility] | | | | | | [address] | [place] | | | | | | Phone: | [address] Phone: | | | | | | [phone] | [phone] | | | | | | Fax: | Fax: | | | | | | [phone] | [phone] | +--------+ + + + + + Encounter Details +--------+ + + + + | Date | Type | Department | Care Team | Description | +--------+ + + + + | 08/03/ | Hospital | [facility] | Lauri Ayon | Anemia (Primary Dx); | | 2014 | Encounter | [facility] | MD Rodolfo [address] | Leukocytosis; | | | | [facility]Y CLINIC [address] [place] | Hypothyroidism; | | | | [facility] | [place] [address] | Anemia due to blood | | | | [place] [address] | [phone] | loss, acute; Fatigue | | | | [phone] | | | +--------+ + + + [...] of this encounter Progress Notes Jessica Barnes, RN FAMILY PRACTICE - 08/03/2014 11:17 AM PDTREVIEW OF SYSTEMS [...] STREETER | | | | | | [id number] | | | | | | | | +--------+---------+ + + + | 11/21/ | Office | Cardiology | Yesi, | | | 2019 | Visit | | JOSE ALBERTO Linder [address] | | | | | | [place], | | | | | | [place] [address] | | | | | | [phone] | | | | | | | [...] [address] | [place] | [phone] | | [facility] | | [address] | | | - LABORATORY | | [...] | | | Sensitive | | | [facility] | | | | | [...] + | [facility] | [address] | [place] | [phone] | | [facility] | | [address] | | | - LABORATORY | | [...] FLANNERY. | [address] | [place] | [phone] | | [facility] | | [address] | | | - LABORATORY | | [...]
--- OUTSIDE RECORDS SUMMARY | ~2019-04-12 | XMS | Encounter Summary ---
Demographics + + + | Address | [address] | | | [place] [address] | + + + | Home Phone [...] | Author | [facility] | | | and [place] | + + + | Organization | [facility] | | [...] [place] | | | | | [place] [address] | | + + + + + | Hunter Jackson | ECON | [place] | | + + + + + | Wes Jackson | ECON | [place], [place] | | + + + + + | Oziel Jackson | ECON | [place], [place] | | + + + + + Care Team Providers + +------+ + | Care Content Strategy Lead Name | Role | Phone | + [...] | | atherosclero | | [address] | | | | | sis of | | [place], | | | | | unspecified | | [place] [address] | | | | | type of | | Phone: | | | | | vessel, | | [phone] | | | | | [place] | | Fax: | | | | | graft | | [phone] | | | | | Coronary | | | | | | | atherosclero | | | | | | | sis of | | | | | | | unspecified | | | | | | | type of | | | | | | | vessel, | | | | | | | [place] or | | | | | | | graft | | | | | | | Procedures | | | | | | | AL ENDOSCOPY | | | | | | | | | | | | | | W/VIDEO-ASST | | | | | | | VEIN | | | | | | | HARVEST,CABG | | | | | | | AL CABG, | | | | | | | ARTERY-VEIN, | | | | | | | FOUR AL | | | | | | | [...] [address] | [place] [address] | | | | | [place] | [phone] | | | | | [address] | | | | | | [phone] | | | +--------+ + + + [...] | ORA Probe | A 18 Fr Atlantic sump was placed orally without difficulty under VL | | | 7 | Placement | monitoring. The stomach was decompressed, returning less than 10 | | | 5 | | ml clear bile-tinged fluid, followed by immediate removal. ORA | | | 4 | | probe was placed without difficulty using typical minimal force. | | | | | [place] videoscope used to guide OG and ORA [...] | AI, no , trace TR, trace AL. 5. Normal aorta other than mild | [...] 11/05/16 1600 by | | eral | mazy-mhw-fdufgj catheter system; | Angelica Smith, | Raquel [...] accurate I/O; All elements; All | | PASTA MAKER Student | | er | elements; All [...] | | Ventilation: EZ; Successful | | WEB SYSTEMS DEVELOPER | | | Technique: video scope; Airway [...] Shauna Mckinney, | | | removed by [facility]); 1039 | | RN | +--------+ + + + | Chest | 11/01/16; 0950; eze; | 11/01/16 0950 by | 11/02/16 1020 by | | Tube Y | Left:; anterior; pleural; 19 Fr.; | Chloé Choi RN | Semaj Bynum, | | 123 | midline; anterior; pericardial; | | PASTA MAKER Student | | | 19 Fr.; midline; [...] with the | | | | | wdccpljggf-zkfj-owjepax to the | | | | | [...] sedated; Left; radial artery; 20 | | PASTA MAKER Student | | | gauge; continuous blood [...] Semaj Bynum, | | | | | PASTA MAKER Student | +--------+ + + + documented [...] | | | | | | [place] [address] | | | | | | [phone] | | | | | | | [...] | | track was dilated with the brdgxybgbu-lnkk-clhgroo to the device hub | | | [...] track was dilated with the | | pfwilyksll-mngr-hyyqifs to the device hub and after a [...]
--- OUTSIDE RECORDS SUMMARY | ~2019-04-12 | XMS | Encounter Summary ---
Demographics + + + | Address | [address] | | | [place] [address] | + + + | Home Phone [...] | Author | [facility] | | | and Ohana | + + + | Organization | [facility] | | [...] | | | | | [place] [address] | | + + + + + | Hunter Jackson | ECON | [place] | | + + + + + | Wes Jackson | ECON | [place], [place] | | + + + + + | Oziel Jackson | ECON | [place], [place] | | + + + + + Care Team Providers + +------+ + | Care Belt Picker Name | Role | Phone | + +------+ + PCP | Unavailable | + +------+ + Encounter Details +--------+ + + + + | Date | Type | Department | Care Team | Description | +--------+ + + + + | 02/19/ | [facility] | [facility] | Rodolfo Cruz, | | | 2010 | Encounter | MED CTR LAB[facility]ATORY | [address] | | | | | [address] [place] | [place], [place] | | | | | [place] | [address] | | | | | [address] | | | | | | [phone] | | | +--------+ + + + [...] STREETER | | | | | | [address] | | | | | | | | +--------+---------+ + + + | 11/21/ | Office | Cardiology | Yesi, | | | 2019 | Visit | | JOSE ALBERTO Linder [address] | | | | | | [place], | | | | | | [place] [address] | | | | | | [phone] | | | | | | | [...] [address] | [place] | [phone] | | [facility] | | [address] | | | - LABORATORY | | | | + + + + + | [facility] | [address] | [place] | | | [facility] | | [address] | | | - LABORATORY | | [...] - 1.030 | [facility] | | | [place] | | | [facility] | | [...] + | MICROSCOPIC | YES | | [facility] | | | ? | | | [facility] | | [...] ST. | [address] | [place] | [phone] | | [facility] | | [address] | | | - LABORATORY | | | | + + + + + | [facility] | [address] | [place] | | | [facility] | | [address] | | | - LABORATORY | | [...] performed on the Adebayo | uIU/mL | [facility] | | | | [employer] | | MEDICAL | | | [...] + | [facility] | [address] | [place] | [phone] | | [facility] | | [address] | | | - LABORATORY | | | | + + + + + | [facility] | [address] | [place], [place] | | | [facility] | | [address] | | | - LABORATORY | | [...] | | | es | | | . [facility] | | [...] | | Calculated | | | [facility] | | [...] [address] | [place] | [phone] | | [facility] | | [address] | | | - LABORATORY | | | | + + + + + | [facility] | [address] | [place] | | | [facility] | | [address] | | | - LABORATORY | | [...] | >60Comment: For | >60 mL/min/A | [facility] | | | GFR | -Americans, | [...] + | [facility] | [address] | [place] | [phone] | | [facility] | | [address] | | | - LABORATORY | | | | + + + + + | [facility] | [address] | [place] | | | [facility] | | [address] | | | - LABORATORY | | [...] | | | Lymphocytes | | | [facility] | | | [...] [address] | [place] | [phone] | | [facility] | | [address] | | | - LABORATORY | | | | + + + + + | [facility] [facility] | [address] | [place] | | | [facility] | | [address] | | | - LABORATORY | | | | + + + + + documented in this encounter Visit Diagnoses Not on filedocumented in this encounter"
--- OUTSIDE RECORDS SUMMARY | ~2019-04-12 | XMS | Encounter Summary ---
Demographics + + + | Address | [address] | | | [place] [address] | + + + | Home Phone [...] | Author | [facility] | | | and Ohana | + + + | Organization | [facility] | [...] | | | | | [place] [address] | | + + + + + | Hunter Jackson | ECON | [place] | | + + + + + | Wes Jackson | ECON | [place], [place] | | + + + + + | Oziel Jackson | ECON | [place], [place] | | + + + + + Care Team Providers + +------+ + | Care Farmworker Fryer Farm Name | Role | Phone | + +------+ + | Rodolfo Cruz MD | PCP | | + +------+ + Reason for Visit + + + | Reason | Comments | + + + | Lab Results | | + + + Encounter Details +--------+ + + + + | Date | Type | Department | Care Team | Description | +--------+ + + + + | 01/07/ | Telephone | [facility] | Rodolfo Cruz, | Lab Results | | 2016 | | MEDICINE [facility] | [address] | | | | | [place] | [place] | | | | | [place] [address] | [address] | | | | | [phone] | | | +--------+ + + + [...] | | | | | | [place] [address] | | | | | | [phone] | | | | | | | | +--------+---------+ + + + documented as of this encounter Visit Diagnoses Not on filedocumented in this encounter"
--- OUTSIDE RECORDS SUMMARY | ~2019-04-12 | XMS | Encounter Summary ---
Demographics + + + | Address | [address] | | | [place] [address] | + + + | Home Phone [...] Author | [facility] | | | and [place] | + + + | Organization | [facility] [...] | | | | | [place] [address] | | + + + + + | Hunter Jackson | ECON | [place] | | + + + + + | Wes Jackson | ECON | [place], [place] | | + + + + + | Oziel Jackson | ECON | [place], [place] | | + + + + + Care Team Providers + +------+ + | Care Infrastructure Manager Name | Role | Phone | [...] | [address] | | | | | [address] | | | | | | [phone] | | | +--------+--------+ + + + [...] STREETER | | | | | | [address] | | | | | | | | +--------+---------+ + + + | 11/21/ | Office | Cardiology | Yesi, | | | 2019 | Visit | | JOSE ALBERTO [address] | | | | | | [place] | | | | | | [place] [address] | | | | | | [phone] | | | | | | | | +--------+---------+ + + + documented as of this encounter Visit Diagnoses + + | Diagnosis | + + | Pain - Primary Generalized pain | + + documented in this encounter"
--- OUTSIDE RECORDS SUMMARY | ~2019-04-12 | XMS | Encounter Summary ---
Demographics + + + | Address | [address] | | | [place] [address] | + + + | Home Phone [...] | Author | [facility] | | | and [place] | + + + | Organization | [facility] | [...] | | | | | [place] [address] | | + + + + + | Hunter Jakcson | ECON | [place] | | + + + + + | Wes Jackson | ECON | [place], [place] | | + + + + + | Oziel Jackson | ECON | [place], [place] | | + + + + + Care Team Providers + +------+ + | Care Night Patrol Inspector Name | Role | Phone | [...] + + | 11/06/ | Office | [facility] | Rodolfo Cruz, | Hives of unknown | | 2016 | Visit | MEDICINE [address] | MD [address] | origin (Primary Dx); | | | | Street [place] | [place] [address] | Stress reaction; | | | | [place] [address] | [address] | Hyperglycemia; Pain | | | | [phone] | | | +--------+---------+ + + + [...] No energy. Wi th ER visit in [place] last week. This is persisting except for [...] | | | | | | [place] [address] | | | | | | [phone] | | | | | | | [...] | [facility] | | | | | Yellow, Straw | [facility] [...] - 1.030 | [facility] | | | [place] | | | [facility] | | [...] | | Urine | | | [facility] | | [...] [address] | [place] | [phone] | | [facility] | | [address] | | | - LABORATORY | | [...] ST. | [address] | [place], [place] | [phone] | | [facility] | | [address] | | | - LABORATORY | | [...] | | | | | | [facility] | | [...] | | | | | mg/dL | [facility] | | | | | | MEDICAL | | | | | | CENTER - | | | | | | LABORATORY | | + + + + + + | eGFR if not | >60Comment: GLOMERULAR | >=60 | [facility] | | | | FILTRATION | mL/min/1.73m2 | [facility] | | | B[place]AN | RATE,ESTIMATED | | MEDICAL | | | | mL/min/1.25t5Tokk than | | CENTER - | | [...] | | | | | mg/dL | [facility] | | | | | | MEDICAL [...] + | [facility] | [address] | [place] | [phone] | | [facility] | | [address] | | | - LABORATORY | | [...] ST. | [address] | [place], [place] | [phone] | | [facility] | | [address] | | | - LABORATORY | | [...]
--- OUTSIDE RECORDS SUMMARY | ~2019-04-12 | XMS | Encounter Summary ---
Demographics + + + | Address | [address] | | | [place] [address] | + + + | Home Phone [...] | [facility] | | | and [place] | + + + | Organization | [facility] | | [...] | | | | | [place] [address] | | + + + + + | Hunter Jackson | ECON | [place] | | + + + + + | Wes Jackson | ECON | [place], [place] | | + + + + + | Oziel Jackson | ECON | [place], [place] | | + + + + + Care Team Providers + +------+ + | Care Assistant Professor Of History Name | Role | Phone | + [...] starting the new | | | | [place], | [place], | medication) | | | | [place] [address] | [place] [address] | | | | | [phone] | [phone] | | | | | | | [...] STREETER | | | | | | [address] | | | | | | | | +--------+---------+ + + + | 11/21/ | Office | Cardiology | Yesi, | | | 2019 | Visit | | JOSE ALBERTO [address]inder [address] | | | | | | [place], | | | | | | [place] [address] | | | | | | [phone] | | | | | | | | +--------+---------+ + + + documented as of this encounter Visit Diagnoses Not on filedocumented in this encounter"
--- OUTSIDE RECORDS SUMMARY | ~2019-04-12 | XMS | Encounter Summary ---
Demographics + + + | Address | [address] | | | [place] [address] | + + + | Home Phone [...] Author | [facility] | | | and [place] | + + + | Organization | [facility] | | | and [place] | + + + | Address | Unknown | + + + | Phone | Unavailable | + + + Support + + + + + | Name | Relationship | Address | Phone | + + + + + | Osmin Jackson | ECON | [address] | | | | | [place] [address] | | + + + + + | Hunter Jackson | ECON | [place] | | + + + + + | Wes Jackson | ECON | [place], [place] | | + + + + + | Oziel Jackson | ECON | [place], [place] | | + + + + + Care Team Providers + +------+ + | Care Farm Hand Name | Role | Phone | + +------+ + | Kellie uGnderson | PCP | | + +------+ + Reason for Visit + + + | Reason | Comments | + + + | Shoulder Pain | Right shoulder and right cmc last inj 07/27/2018 | + + + Encounter Details +--------+---------+ + + + | Date | Type | Department | Care Team | Description | +--------+---------+ + + + | 11/18/ | Office | [facility] | Ulysses Jensen, | Arthritis of | | 2019 | Visit | ORTHOPEDIC SURGERY | [facility] | carpometacarpal | | | | [address] [facility] | [place], [place] | (CMC) joint of right | | | | [place], [place] | [address] | thumb (Primary Dx); | | | | [address] | | Rotator cuff tear | | | | [phone] | | arthropathy of right | | [...] + + + + | Weight | 86.9 kg (191 lb 9.3 | 11/18/2018 1:23 PM | | | | oz) | PDT | | + + + + + | Height | 165.1 cm (5' 5") | 11/18/2018 1:23 PM | | | | | PDT | | + + + + + | Body Mass Index | 31.88 | 11/18/2018 1:23 PM | | | | | PDT | | + + + + + documented in this encounter Progress Notes Ulysses Jensen MD - 11/18/2018 1:30 PM PDTPatient returns for injection in right shoulde r and right first cmc joint Under sterile conditions today I injected the right shoulder subacromial space with kenalog 40mg and naropin 3cc Under sterile conditions I then injected the first cmc joint with 1cc celestone and 1cc tata opin She will return as needed documented in [...] STREETER | | | | | | [address] | | | | | | | | +--------+---------+ + + + | 11/21/ | Office | Cardiology | Yesi, | | | 2019 | Visit | | JOSE ALBERTO [address]inder [address] | | | | | | [place], | | | | | | [place] [address] | | | | | | [phone] | | | | | | | [...] + | betamethasone (CELESTONE | Given | 11/19/19 | 3 mg | | Hand-Rig | | SOLUSPAN) injection 3 mg 3 mg, | | 19 2:39 | | | ht | | Intra-articular, ONCE, Wed | | PM PDT | | | | | 11/18/18 at 1500, For 1 dose, | | | | | | | Shake well. Not for IV use., | | | | | | + +--------+ +------+------+ + +---+---+ | | | +---+---+ + +-------+ +-------+---+ + | triamcinolone acetonide | Given | 11/19/19 | 40 mg | | Shoulder | | (KENALOG-40) 40 mg/mL injection | | 19 2:40 | | | -Right | | 40 mg 40 mg, Intra-articular, | | PM PDT | | | | | ONCE, 11/18/18 at 1500, For 1 | | | | | | | dose, Shake well. Not for IV | | | | | | | use., | | | | | | + +-------+ +-------+---+ + +---+---+ | | | +---+---+ documented in this encounter
--- OUTSIDE RECORDS SUMMARY | ~2019-04-12 | XMS | Encounter Summary ---
Demographics + + + | Address | [address] | | | [place] [address] | + + + | Home Phone [...] | Author | [facility] | | | and [place] | + + + | Organization | [facility] | | | and [place] | + + + | Address | Unknown | + + + | Phone | Unavailable | + + + Support + + + + + | Name | Relationship | Address | Phone | + + + + + | Osmin Jackson | ECON | [address] | | | | | [place] [address] | | + + + + + | Hunter Jackson | ECON | [place] | | + + + + + | Wes Jackson | ECON | [place], [place] | | + + + + + | Oziel Jackson | ECON | [place], [place] | | + + + + + Care Team Providers + +------+ + | Care Materials Scheduler Name | Role | Phone | [...] | 01/23/ | Refill | [facility] | Rodolfo Cruz, | Medication Refill | | 2015 | | MEDICINE [address] | MD [address] | | | | | [place] | [place] [address] | | | | | [place] [address] | [address] | | | | | [phone] | | | +--------+--------+ + + + [...] | | | | | | [place] [address] | | | | | | [phone] | | | | | | | | +--------+---------+ + + + documented as of this encounter Visit Diagnoses Not on filedocumented in this encounter"
--- OUTSIDE RECORDS SUMMARY | ~2019-04-12 | XMS | Encounter Summary ---
Demographics + + + | Address | [address] | | | [place] [address] | + + + | Home Phone [...] | Author | [facility] | | | and [place] | + + + | Organization | [facility] [...] | | | | | [place] [address] | | + + + + + | Hunter Jackson | ECON | [place] | | + + + + + | Wes Jackson | ECON | [place], [place] | | + + + + + | Oziel Jackson | ECON | [place], [place] | | + + + + + Care Team Providers + +------+ + | Care Tea Leaf Reader Name | Role | Phone | [...] + + | 10/31/ | Telephone | [facility] | Rodolfo Cruz, | Results | | 2014 | | MEDICINE [facility] [address] | MD [address] | | | | | [place] | [place] [address] | | | | | [place] [address] | [address] | | | | | [phone] | | | +--------+ + + + [...] STREETER | | | | | | [address] | | | | | | | | +--------+---------+ + + + | 11/21/ | Office | Cardiology | Yesi, | | | 2019 | Visit | | JOSE ALBERTO [address]inder [address] | | | | | | [place] | | | | | | [place] [address] | | | | | | [phone] | | | | | | | [...]
--- OUTSIDE RECORDS SUMMARY | ~2019-04-12 | XMS | Encounter Summary ---
Demographics + + + | Address | [address] | | | [place] [address] | + + + | Home Phone | | + + + | Preferred Language | Unknown | + + + | Marital Status | | + + + | Moravian Affiliation | Unknown | + + + | Race | Unknown | + + + | Ethnic Group | Unknown | + + + Author + + + | Author | [facility] | | | and [place] | + + + | Organization | [facility] | [...] | | | | | [place] [address] | | + + + + + | Hunter Jackson | ECON | [place] | | + + + + + | Wes Jackson | ECON | [place], [place] | | + + + + + | Oziel Jackson | ECON | [place], [place] | | + + + + + Care Team Providers + +------+ + | Care Rod Buster Helper Name | Role | Phone | [...] + + | 05/23/ | [facility] | [facility] | Yesi, | Hypothyroidism, | | 2016 | Visit | CARDIOLOGY [address] | JOSE ALBERTO [address]inder [address] | unspecified | | | | [place], | [place], | hypothyroidism type | | | | [place] [address] | [place] [address] | (Primary Dx); | | | | [phone] | [phone] | Hyperlipidemia, | | | | | [...] mg per day and did a [facility] blood pressure log that showed her blood [...] i s in a class I of [place] [employer] functional class. There is no fluid retention on physical examination. 2. Heart murmur due to aortic valve insufficiency A. Echocardiogram, 11/03/2013 shows normal LV size and systolic function with LVEF 63%, mil d aortic, mitral, and tricuspid insufficiency, RVSP 43-48 mm mercury, borderline to mild memanuelle trial enlargement, compared to patient's prior study [...] this chart may have been created with Sold voice recognition software. Occasi onal wrong-word or sound-alike substitutions may have occurred due to the inherent deo itations of voice recognition software. Please read [...] STREETER | | | | | | [address] | | | | | | | | +--------+---------+ + + + | 11/21/ | Office | Cardiology | Yesi, | | 2019 | Visit | | Niyah, WASTEWATER DESIGN ENGINEER [address] | | | | | | [place], | | | | | | [place] [address] | | | | | | [phone] | | | | | | | [...] + | [facility] | [address] [place] [address] | [place] | [phone] | | [facility] | | [address] | | | - LABORATORY | | [address] | [place] | [phone] | | [facility] | | [address] | | | - LABORATORY | | [...]
--- OUTSIDE RECORDS SUMMARY | ~2019-04-12 | XMS | Encounter Summary ---
Demographics + + + | Address | [address] | | | [place] [address] | + + + | Home Phone [...] | Author | [facility] | | | and [place] | + + + | Organization | [facility] | [...] | | | | | [place] [address] | | + + + + + | Hunter Jackson | ECON | [place] | | + + + + + | Wes Jackson | ECON | [place], [place] | | + + + + + | Oziel Jackson | ECON | [place], [place] | | + + + + + Care Team Providers + +------+ + | Care Manager Cardiac Cath Name | Role | Phone | + +------+ + | Rodolfo Cruz MD | PCP | | + +------+ + Reason for Visit + + + | Reason | Comments | + + + | Follow-up | Hospital | + + + Encounter Details +--------+---------+ + + + | Date | Type | Department | Care Team | Description | +--------+---------+ + + + | 11/24/ | Office | [facility] | Rodolfo Cruz, | Anemia (Primary Dx); | | 2013 | Visit | [address] | MD [address] | UGI bleed; PUD | | | | [facility] | [place] [address] | (peptic ulcer | | | | [place] [address] | [address] | disease) | | | | [phone] | | | +--------+---------+ + + + [...] + | Blood Pressure | 140/68 | 11/24/2013 10:13 AM | | | | | PDT | | + + + + + | Pulse | 63 | 11/24/2013 10:13 AM | | | | | PDT | | + + + + + | Temperature | 36.2 C (97.2 F) | 11/24/2013 10:13 AM | | | | | PDT | | + + + + + | Respiratory Rate | 18 | 11/24/2013 10:13 AM | | | | | PDT | | + + + + + | Oxygen Saturation | 98% | 11/24/2013 10:13 AM | | | | | PDT | | + + + + + | Inhaled Oxygen | - | - | | | Concentration | | | | + + + + + | Weight | 88.5 kg (195 lb) | 11/24/2013 10:13 AM | | | | | PDT | | + + + + + | Height | - | - | | + + + + + | Body Mass Index | 31.47 | 11/14/2013 11:09 AM | | | | | PDT | | + + + + + documented in this encounter Progress Notes Rodolfo Cruz MD - 11/24/2013 10:41 AM PDTFormatting of this note might be different f rom the original. Subjective: Patient ID: Soumya Jackson is a 78 y.o. female. HPI Recent Upper GI bleed, recurrant, She is feeling fine now. Now on Iron, She has had a BM every morning since. She is still feeling fatigued and and week. Review of Systems Objective: Physical Exam Heent, WNL, No carotid bruit Chest CTAB Heart RR&R /s M Abd S,NT,ND,BS+ Ext, no CCor E Assessment: 1. Anemia 2. UGI bleed 3. PUD (peptic ulcer disease) Plan: She can start aspirin in two weeks, stomach coated. She will obtain, CBC. As for your r ecent imaging of the chest, will repeat MRI contrast STIR of chest and left shoulder in thre e months. documented in this encounter Plan of Treatment +--------+---------+ + + + | Date | Type | Specialty | Care Team | Description | +--------+---------+ + + + | 06/02/ | Office | Orthopedic Surgery | Ulysses Jensen E, | | | 2019 | Visit | [...] [address] | | | | | | [place], | | | | | | [place] [address] | | | | | | [phone] | | | | | | | | +--------+---------+ + + + documented as of this encounter Visit Diagnoses + + | Diagnosis | + + | Anemia - Primary Anemia, unspecified | + + | UGI bleed Hemorrhage of gastrointestinal tract, unspecified | + + | PUD (peptic ulcer disease) Peptic ulcer, unspecified site, unspecified as acute or | | chronic, without mention of hemorrhage, perforation, or obstruction | + + documented in this encounter"
--- OUTSIDE RECORDS SUMMARY | ~2019-04-12 | XMS | Encounter Summary ---
Demographics + + + | Address | [address] | | | [place] [address] | + + + | Home Phone [...] | Author | [facility] | | | and [place] | + + + | Organization | [facility] [...] | | | | | [place] [address] | | + + + + + | Hunter Jackson | ECON | [place] | | + + + + + | Wes Jackson | ECON | [place], [place] | | + + + + + | Oziel Jackson | ECON | [place], [place] | | + + + + + Care Team Providers + +------+ + | Care Degreaser Name | Role | Phone | + [...] + + | 11/24/ | Telephone | [facility] | Rodolfo Cruz, | Appointment | | 2013 | | MEDICINE [address] [place] [address] | MD [address] | | | | | [place] | [place] [address] | | | | | [place] [address] | [address] | | | | | [phone] | | | +--------+ + + + [...] | | | | | | [place] [address] | | | | | | [phone] | | | | | | | | +--------+---------+ + + + documented as of this encounter Visit Diagnoses Not on filedocumented in this encounter"
--- OUTSIDE RECORDS SUMMARY | ~2019-04-12 | XMS | Encounter Summary ---
Demographics + + + | Address | [address] | | | [place] [address] | + + + | Home Phone [...] | Author | [facility] | | | and [place] | + + + | Organization | [facility] [...] | | | | | [place] [address] | | + + + + + | Hunter Jackson | ECON | [place] | | + + + + + | Wes Jackson | ECON | [place], [place] | | + + + + + | Oziel Jackson | ECON | [place], [place] | | + + + + + Care Team Providers + +------+ + | Care Plant Custodian Name | Role | Phone | + [...] | 11/21/ | Refill | [facility] | Rodolfo Cruz, | Medication Refill | | 2015 | | MEDICINE [address] | MD [address] | | | | | [place] | [place] [address] | | | | | [place] [address] | [address] | | | | | [phone] | | | +--------+--------+ + + + [...] | | | | | | [place] [address] | | | | | | [phone] | | | | | | | | +--------+---------+ + + + documented as of this encounter Visit Diagnoses + + | Diagnosis | + + | Insomnia - Primary Insomnia, unspecified | + + documented in this encounter"
--- OUTSIDE RECORDS SUMMARY | ~2019-04-12 | XMS | Encounter Summary ---
Demographics + + + | Address | [address] | | | [place] [address] | + + + | Home Phone [...] + | Author | [facility] | | | and [place] | + + + | Organization | [facility] | [...] | | | | | [place] [address] | | + + + + + | Hunter Jackson | ECON | [place] | | + + + + + | Wes Jackson | ECON | [place], [place] | | + + + + + | Oziel Jackson | ECON | [place], [place] | | + + + + + Care Team Providers + +------+ + | Care Jig Boring Machine Operator For Metal Name | Role | Phone | + [...] Pulmonary | Rodolfo Reilly MD | [address] | | | | | nodules | [address] | [place], | | | | | Procedures | [address] | [place] [address] | | | | | CT Chest w | [place], [place] | Phone: | | | | | Contrast | [address] | [phone] | | | | | AFTER | Phone: | Fax: | | | | | 02/17/15 | [phone] | [phone] | | | | | | Fax: | | | | | | | [phone] | | +--------+--------+ + + + + [...] Pulmonary | Rodolfo Reilly MD | [address] | | | | | nodules | [address] | [place], | | | | | Procedures | [place] | [place] [address] | | | | | CT Chest w | [place], [place] | Phone: | | | | | Contrast | [address] | [phone] | | | | | AFTER | Phone: | Fax: | | | | | 02/17/15 | [phone] | [phone] | | | | | | Fax: | | | | | | | [phone] | | +--------+--------+ + + + + Encounter Details +--------+ + + + + | Date | Type | Department | Care Team | Description | +--------+ + + + + | 03/23/ | Hospital | [facility] | Rodolfo Cruz, | Pulmonary nodules | | 2015 | Encounter | MED [facility] [address] | [address] | | | | | [place], | [place], [place] | | | | | [place] [address] | [address] | | | | | [phone] | | | | | | | Provider Not, In | | | | | | System [facility] | | | | | | [facility] | | +--------+ + + + + [...] encounter Progress Notes Rodolfo Cruz MD - 03/31/2015 11:01 AM PST Quick Note: Studies recently obtained have slight abnormalities but do not require early follow up, Bu t patient may reschedule earlier to discuss if they wish. No change in nodules which is good news. documented in thi s encounter Plan of [...] [address] | | | | | | [place], | | | | | | [place] [address] | | | | | | [phone] | | | | | | | | +--------+---------+ + + + documented as of this encounter Procedures + +--------+ + + + | Procedure Name | Priori | Date/Time | Associated Diagnosis | Comments | | | ty | | | | + +--------+ + + + | CT CHEST W CONTRAST | Routin | 03/23/2015 | Pulmonary nodules | Results for this | | | e | 12:06 PM | | procedure are in the | | | | PST | | results section. | + +--------+ + + + | POC BLOOD GASES | Routin | 03/23/2015 | | Results for this | | | e | 11:58 AM | | procedure are in the [...] nodules. COMPARISON: 08/18/2014, 02/22/2014. PROTOCOL: Axial | [facility] | | images of the chest were obtained after uneventful administration of | [facility] | | 75 mL Omnipaque 350. Coronal [...] + | [facility] | [address] | [place] | [phone] | | [facility] | | [address] | | | - IMAGING | | | | + + + + + POC Blood Gases (03/23/2015 11:58 AM PST) + +-------+ + + + | Component | Value | Ref Range | Performed | Pathologist | | | | | At | Signature | + +-------+ + + + | Specimen | Vein | | [facility] | | | Source | | | [facility] | | | | | | MEDICAL | | | | | | CENTER - | | | | | | LABORATORY | | + +-------+ + + + | Creatinine, | 0.7 | 0.5 - 1.2 mg/dL | [facility] | | | POC | | | [facility] | | | | | | MEDICAL | | | | | | CENTER - | | | | | | LABORATORY | | + +-------+ + + + | eGFR if not | >60 | >=60 | [facility] | | | | | mL/min/1.73m2 | [facility] | | | [facility] | | | MEDICAL | | | [...] [address] | [place] | [phone] | | [facility] | | [address] | | | - LABORATORY | | [...] iohexol (OMNIPAQUE 350) 350 | Given | 03/23/20 | 75 mLs | | | | mg/mL injection 75 mL 75 mL, | | 15 12:00 | | | | | Intravenous, ONCE PRN, Other, for | | PM PST | | | | | imaging CT study, Starting Roxy | | | | | | | 03/23/15 at 1207, For 1 dose, | | | | | | | Radiology | | | | | | + +--------+ +--------+------+------+ +---+---+ | | | +---+---+ documented in this encounter"
--- OUTSIDE RECORDS SUMMARY | ~2019-04-12 | XMS | Encounter Summary ---
Demographics + + + | Address | [address] | | | [place] [address] | + + + | Home Phone [...] | Author | [facility] | | | and [place] | + + + | Organization | [facility] [...] | | | | | [place] [address] | | + + + + + | Hunter Jackson | ECON | [place] | | + + + + + | Wes Jackson | ECON | [place], [place] | | + + + + + | Oziel Jackson | ECON | [place], [place] | | + + + + + Care Team Providers + +------+ + | Care Compensation Administrator Name | Role | Phone | [...] + | 02/04/ | Office | [facility] | Ulysses Jensen, | Rotator cuff | | 2012 | Visit | ORTHOPEDIC SURGERY | [address] | syndrome of right | | | | [address] [facility] | [place], [place] | shoulder (Primary | | | | [place], [place] | [address] | Dx); [facility] arthritis | | | | [address] | | | | | | [phone] | | | +--------+---------+ + + + [...] | | | | | | [place] [address] | | | | | | [phone] | | | | | | | [...] | | (Comment | | Intramuscular, ONCE, [facility] 02/04/13 | | AM PDT | | [...] | | | | | Infiltration, ONCE, [facility] 02/04/13 | | AM PDT | | | | | at 1015, For 1 dose | | | | | | + +-------+ +------+---+---+ +---+---+ | | | +---+---+ + +-------+ +-------+---+---+ | bupivacaine (MARCAINE) 0.5% | Given | 02/05/20 | 4 mLs | | | | injection 4 mL 4 mL, | | 13 9:55 | | | | | Infiltration, ONCE, [facility] 02/04/13 | | AM PDT | | [...] PDT | | | | | ONCE, [facility] 02/04/13 at 1015, For 1 | | | | | | | dose, Shake well. Not for IV | | | | | | | use., | | | | | | + +-------+ +-------+---+---+ +---+---+ | | | +---+---+ documented in this encounter
--- OUTSIDE RECORDS SUMMARY | ~2019-04-12 | XMS | Encounter Summary ---
Demographics + + + | Address | [address] | | | [place] [address] | + + + | Home Phone [...] + | Author | [facility] | | | and [place]ana | + + + | Organization | [facility] | [...] [place] | | | | | [place] [address] | | + + + + + | Hunter Jackson | ECON | [place] | | + + + + + | Wes Jackson | ECON | [place], [place] | | + + + + + | Oziel Jackson | ECON | [place], [place] | | + + + + + Care Team Providers + +------+ + | Care Installer Interior Assemblies Name | Role | Phone | + +------+ + | Kellie Gunderson | PCP | | + +------+ + Reason for Visit +--------+ + | Reason | Comments | +--------+ + | Other | | +--------+ + Encounter Details +--------+ + + + + | Date | Type | Department | Care Team | Description | +--------+ + + + + | 07/29/ | Telephone | [facility] [place] | Yany, | Other | | 2016 | | PHYSIATRY [address] | [address] | | | | | [place], | [facility], | | | | | [place] [address] | [place] [address] | | | | | [phone] | [phone] | | | | | | | [...] 06/02/ | Office | Orthopedic Surgery | Ulysess Jensen, | | | 2019 | Visit | | MD Danny [address] | | | | | | [place] [address] | | | | | | [address] | | | | | | | | +--------+---------+ + + + | 11/21/ | Office | Cardiology | Yesi | | | 2019 | Visit | | JOSE ALBERTO Linder [address] | | | | | | [place] | | | | | | [place] [address] | | | | | | [phone] | | | | | | | | +--------+---------+ + + + documented as of this encounter Visit Diagnoses Not on filedocumented in this encounter"
--- OUTSIDE RECORDS SUMMARY | ~2019-04-12 | XMS | Encounter Summary ---
Demographics + + + | Address | [address] | | | [place] [address] | + + + | Home Phone [...] + | Author | [facility] | | | and Ohana | + + + | Organization | [facility] | | | [...] [place] | | | | | [place] [address] | | + + + + + | Hunter Jackson | ECON | [place] | | + + + + + | Wes Jackson | ECON | [place], [place] | | + + + + + | Oziel Jackson | ECON | [place], [place] | | + + + + + Care Team Providers + +------+ + | Care Underwriting Analyst Name | Role | Phone | [...] | MD [address] [facility] | carpometacarpal | | | | [address] [facility] | [facility] [place] | (CMC) joint of right | | | | [place], [place] | [address] | thumb (Primary Dx); | | | | [address] | | Rotator cuff tear | | | | [phone] | | arthropathy of right | | [...] [place] | | | | | | [address] | | | | | | | | +--------+---------+ + + + | 11/21/ | Office | Cardiology | Yesi, | | | 2019 | Visit | | JOSE ALBERTO Linder [address] | | | | | | [place], | | | | | | [place] [address] | | | | | | [phone] | | | | | | | [...]
--- OUTSIDE RECORDS SUMMARY | ~2019-04-12 | XMS | Encounter Summary ---
Demographics + + + | Address | [address] | | | [place] [address] | + + + | Home Phone [...] | [facility] | | | and [place] | + + + | Organization | [facility] [...] | | | | | [place] [address] | | + + + + + | Hunter Jackson | ECON | [place] | | + + + + + | Wes Jackson | ECON | [place], [place] | | + + + + + | Oziel Jackson | ECON | [place], [place] | | + + + + + Care Team Providers + +------+ + | Care Supervisor Sandblaster Name | Role | Phone | + +------+ + | Rodolfo Cruz MD | PCP | | + +------+ + Encounter Details +--------+ + + + + | Date | Type | Department | Care Team | Description | +--------+ + + + + | 11/06/ | Hospital | [facility] | Rodolfo Cruz, | Hives of unknown | | 2016 | Encounter | MED CTR LABORATORY | MD [address] | origin | | | | [address] [place] | [place] [address] | | | | | [place] | [address] | | | | | [address] | | | | | | [phone] | | | +--------+ + + + [...] + + + +---------+ + + | [place] 3 1000 MG | Take by mouth. [...] [place] | | | | | | [address] | | | | | | | | +--------+---------+ + + + | 11/21/ | Office | Cardiology | Yesi, | | | 2019 | Visit | | JOSE ALBERTO Linder [address] | | | | | | [place], | | | | | | [place] [address] | | | | | | [phone] | | | | | | | [...] - 1.030 | [facility] | | | [place] | | | [facility] | | [...] + | [facility] | [address] | [place] | [phone] | | [facility] | | [address] | | | - LABORATORY | | [...] [address] | [place] | [phone] | | [facility] | | [address] | | | - LABORATORY | | [...] | | | | | mg/dL | [facility] | | | | | | MEDICAL | | | | | | CENTER - | | | | | | LABORATORY | | + + + + + + | eGFR if not | >60Comment: GLOMERULAR | >=60 | [facility] | | | | FILTRATION | mL/min/1.73m2 | [facility] | | | DOMINICAN | RATE,ESTIMATED | | MEDICAL | | | | mL/min/1.77i4Wyxg than | | CENTER - | | [...] | | | | | mg/dL | [facility] | | | | | [...] [address] | [place] | [phone] | | [facility] | | [address] | | | - LABORATORY | | [...] ST. | [address] | [place] | [phone] | | [facility] | | [address] | | | - LABORATORY | | | | + + + + + documented in this encounter Visit Diagnoses + + | Diagnosis | + + | Hives of unknown origin | + + documented in this encounter"
--- OUTSIDE RECORDS SUMMARY | ~2019-04-12 | XMS | Encounter Summary ---
Demographics + + + | Address | [address] | | | [place] [address] | + + + | Home Phone [...] | Author | [facility] | | | and [place] | + + + | Organization | [facility] | | | and [place]ana | + + + | Address | Unknown | + + + | Phone | Unavailable | + + + Support + + + + + | Name | Relationship | Address | Phone | + + + + + | Osmin Jackson | ECON | [address] | | | | | [place] [address] | | + + + + + | Hunter Jackson | ECON | [place] | | + + + + + | Wes Jackson | ECON | [place], [place] | | + + + + + | Oziel Jackson | ECON | [place], [place] | | + + + + + Care Team Providers + +------+ + | Care Math And Science Division Chair Name | Role | Phone | + [...] Pulmonary | Rodolfo Reilly MD | [address] | | | | | nodules | [address] | [place], | | | | | 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 | [place], [place] | Phone: | | | | | Procedures | [address] | [phone] | | | | | CT Chest w | Phone: | Fax: | | | | | Contrast | [phone] | [phone] | | | | | 02/16/14 | Fax: | | | | | | | [phone] | | +--------+--------+ + + + + [...] + + | 12/08/ | Office | [facility] | Rodolfo Cruz, | Pulmonary nodules | | 2013 | Visit | MEDICINE [address] [place] [address] | [address] | (Primary Dx); | | | | [place] | [place] [address] | Anemia; UGI bleed; | | | | [place] [address] | [address] | 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; | | | | [...] 06/05/2010 and no changes required: Born in [facility] since 1965 Marital status: Children: 6, 5 living, 10 grandchildren 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
--- OUTSIDE RECORDS SUMMARY | ~2019-04-12 | XMS | Encounter Summary ---
Demographics + + + | Address | [address] | | | [place] [address] | + + + | Home Phone [...] | Author | [facility] | | | and [place] | + + + | Organization | [facility] | | [...] | | | | | [place] [address] | | + + + + + | Hunter Jackson | ECON | [place] | | + + + + + | Wes Jackson | ECON | [place], [place] | | + + + + + | Oziel Jackson | ECON | [place], [place] | | + + + + + Care Team Providers + +------+ + | Care Elementary School Social Worker Name | Role | Phone | + +------+ + | Rodolfo Cruz MD | PCP | | + +------+ + Encounter Details +--------+ + + + + | Date | Type | Department | Care Team | Description | +--------+ + + + + | 03/15/ | Hospital | [facility] | Rodolfo Cruz, | Other specified | | 2014 | Encounter | MED CTR LABORATORY | MD [address] | hypothyroidism; | | | | [address] [place] | [place], [place] | Pulmonary nodule, | | | | [place], [place] | [address] | right | | | | [address] | | | | | | [phone] | | | +--------+ + + + [...] | | | | | | [place] [address] | | | | | | [phone] | | | | | | | [...] | | | | | | [facility] | | [...] [address] | [place] | [phone] | | [facility] | | [address] | | | - LABORATORY | | [...] [address] | [place] | [phone] | | [facility] | | [address] | | | - LABORATORY | | | | + + + + + documented in this encounter Visit Diagnoses + + | Diagnosis | + + | Other specified hypothyroidism | + + | Pulmonary nodule, right Solitary pulmonary nodule | + + documented in this encounter"
--- OUTSIDE RECORDS SUMMARY | ~2019-04-12 | XMS | Encounter Summary ---
Demographics + + + | Address | [address] | | | [place] [address] | + + + | Home Phone [...] | Author | [facility] | | | and [place]ana | + + + | Organization | [facility] | | | and [...] | | | | | [place] [address] | | + + + + + | Hunter Jackson | ECON | [place] | | + + + + + | Wes Jackson | ECON | [place], [place] | | + + + + + | Oziel Jackson | ECON | [place], [place] | | + + + + + Care Team Providers + +------+ + | Care Crime Scene Technician Name | Role | Phone | [...] [place] | | | | | | [address] | [address] Phone: | | | | | | Phone: | [phone] | | | | | | [phone] | Fax: | | | | | | Fax: | [phone] | | | | | | [phone] | | +--------+ + + + + [...] | thoracic | [address] | [place] | | | | n | back pain | [address] [place] | [place], | | | | | [address] | [place] | [place] [address] | | | | | (ICD-9-CM) - | [address] | Phone: | | | | | Midline | Phone: | [phone] | | | | | thoracic | [phone] | Fax: | | | | | back pain | Fax: | [phone] | | | | | Procedures | [phone] | | | | | | pt [...] + + | 07/18/ | Office | [facility] | Rodolfo Cruz, | Midline thoracic | | 2015 | Visit | MEDICINE [address] | [address] | back pain (Primary | | | | [address] [place] | [place] | Dx); Depression with | | | | [place] [address] | [address] | anxiety | | | | [phone] | | | +--------+---------+ + + + [...] She would like to see a spine hand router operator. She had a nervous breakdown in the [...] STREETER | | | | | | [id number] | | | | | | | | +--------+---------+ + + + | 11/21/ | Office | Cardiology | Yesi | | | 2019 | Visit | | JOSE ALBERTO Linder [address] | | | | | | [place] | | | | | | [place] [address] | | | | | | [phone] | | | | | | | [...]
--- OUTSIDE RECORDS SUMMARY | ~2019-04-12 | XMS | Encounter Summary ---
Demographics + + + | Address | [address] | | | [place] [address] | + + + | Home Phone | | + + + | Preferred Language | Unknown | + + + | Marital Status | Single | + + + | Mandaeism Affiliation | Unknown | + + + | Race | Unknown | + + + | Ethnic Group | Other Race | + + + Author + + + | Author | [facility] | + + + | Organization | [facility] | + + + | Address | Unknown | + + + | Phone | Unavailable | + + + Support + + +---------+ + | Name | Relationship | Address | Phone | + + +---------+ + | None None | ECON | Unknown | Unavailable | + + +---------+ + Care Team Providers + +------+ + | Care Table Tender Name | Role | Phone | + +------+ + PCP | Unavailable | + +------+ + Encounter Details +--------+ + + + + | Date | Type | Department | Care Team | Description | +--------+ + + + + | 04/17/ | Ancillary | [facility] | | | | 2004 | Registratio | Practice [address] | | | | | n | [facility] | | | | | | [place] [address] | | | | | | [phone] | | | +--------+ + + + [...]
--- OUTSIDE RECORDS SUMMARY | ~2019-04-12 | XMS | Encounter Summary ---
Demographics + + + | Address | [address] | | | [place] [address] | + + + | Home Phone [...] + | Author | [facility] | | | and [place] | + + + | Organization | [facility] | [...] [place] | | | | | [place] [address] | | + + + + + | Hunter Jackson | ECON | [place] | | + + + + + | Wes Jackson | ECON | [place], [place] | | + + + + + | Oziel Jackson | ECON | [place], [place] | | + + + + + Care Team Providers + +------+ + | Care Space Sciences Director Name | Role | Phone | [...] | JOSE ALBERTO Linder | [address] | | | | | type | [address] | [place], | | | | | Procedures | [address] | [place] | | | | | [place] Nuclear | [place], | [address] | | | | | Stress Test | [place] | Phone: | | | | | (Vasodilator | [address] | [phone] | | | | | ) CHG | Phone: | Fax: | | | | | MYOCARDIAL | [phone] | [phone] | | | | | SPECT | Fax: | | | | | | MULTIPLE | [phone] | | | | | | STUDIES OK | | | | | | | CV STRS TST | | | | | | | XERS&/OR RX | | | | | | | CONT ECG W/O | | | | | | | I&R OK | | | | | | | [...] + | 10/02/ | Telephone | [facility] | Yesi, | Blood Pressure | | 2018 | | CARDIOLOGY [address] | JOSE ALBERTO Linder [address] | | | | | [place], | [place], | | | | | [place] [address] | [place] [address] | | | | | [phone] | [phone] | | | | | | | [...] STREET[place] | | | | | | [address] | | | | | | | | +--------+---------+ + + + | 11/21/ | Office | Cardiology | Yesi, | | | 2019 | Visit | | JOSE ALBERTO Linder [address] | | | | | | [place] | | | | | | [place] [address] | | | | | | [phone] | | | | | | | [...] 76 %. Signed by: Irina Simms MD [facility] | | | 10/16/2017, 14:56 | | + + + + + --+ | Narrative | Performed At | + + --+ | | [facility] | | NUCLEAR MEDICINE STRESS TEST REPORT Patient Name: Soumya Jackson | | | Study Date: 10/16/2017 Primary Care Provider: FLORA Morgan MRN: | | | [id number] : 1935 Age: 82 y.o. Gender: female [...]
--- OUTSIDE RECORDS SUMMARY | ~2019-04-12 | XMS | Encounter Summary ---
Demographics + + + | Address | [address] | | | [place] [address] | + + + | Home Phone [...] | Author | [facility] | | | and [place] | + + + | Organization | [facility] | [...] | | | | | [place] [address] | | + + + + + | Hunter Jackson | ECON | [place] | | + + + + + | Wes Jackson | ECON | [place], [place] | | + + + + + | Oziel Jackson | ECON | [place], [place] | | + + + + + Care Team Providers + +------+ + | Care Line Maintenance Technician Name | Role | Phone | [...] Chronic low | Yany, | [address] | | | | | back pain | [place], | [place], | | | | | DDD | PA-C [address] | [place] | | | | | (degenerativ | [address] | [address] | | | | | e disc | [place] | Phone: | | | | | disease), | [address] | [phone] | | | | | lumbar | Phone: | Fax: | | | | | Procedures | [phone] | [phone] | | | | | MRI Lumbar | Fax: | | | | | | Spine wo | [phone] | | | | | | Contrast [...] back pain (Primary | | | | [address] [place], | [address] [place], | Dx); Chronic low | | | | [place] [address] | [place] [address] | back pain; DDD | | | | [phone] | [phone] | (degenerative disc | | | | [...] has no apparent deficits with short or rn long term care memory. She has appropriate fund of knowledge [...] LORDOSIS WITH MULTILEVEL DEGENERATIVE DISC DISEASE AND [place] LD RETROLISTHESIS WHICH IS SIMILAR TO MRI [...] | | | | | | [place] [address] | | | | | | [phone] | | | | | | | [...] back pain, not responding to conservative | [facility] | | treatment COMPARISON: None TECHNIQUE: In the 1.5T scanner [facility] | | multiplanar, multisequence imaging of the [...] Signed by: William | | | MD eDnys Electronically signed: 01/09/2015 5:05 PM | | [...] [address] | [place] | [phone] | | [facility] | | [address] | | | - IMAGING | | [...]
--- OUTSIDE RECORDS SUMMARY | ~2019-04-12 | XMS | Encounter Summary ---
Demographics + + + | Address | [address] | | | [place] [address] | + + + | Home Phone [...] | Author | [facility] | | | and [place] | + + + | Organization | [facility] | [...] [place] | | | | | [place] [address] | | + + + + + | Hunter Jackson | ECON | [place] | | + + + + + | Wes Jackson | ECON | [place], [place] | | + + + + + | Oziel Jackson | ECON | [place], [place] | | + + + + + Care Team Providers + +------+ + | Care Environmental Marketing Representative Name | Role | Phone | [...] | | | | | region | [address] | [facility] | | | | | Stenosis of | Phone: | 15 | | | | | cervical | [phone] | [place], [place] | | | | | spine DDD | Fax: | [address] | | | | | (degenerativ | [phone] | Phone: | | | | | e disc | | [phone] | | | | | disease), | | Fax: | | | | | cervical | | [phone] | | | | | Chronic | [...] + + | 07/22/ | Office | [facility] | Harsha Selby | Chronic midline | | 2018 | Visit | PHYSIATRY [address] | TMD [address] | thoracic back pain | | | | [place], | [address] | (Primary Dx); | | | | [place] [address] | [address] | Cervical | | | | [phone] | | radiculopathy; | | | | [...] encounter Patient Instructions Patient Instructions Venita Ray, Single Corner Cutter - 07/22/2017 10:30 AM PDTDiscus s with your primary care provider about the use of Flector patch. Physical therapy has been prescribed. Please participate in physical therapy. If you have not be contacted for an appointment with physical therapy within one week, please contact [facility]. Once you have completed physical therapy please continue the home exercise progr am as outline by physical therapy, indefinitely. Return to clinic if symptoms worsen or fail to improve. documented in this encounter Progress Notes Harsha Selby MD - 07/22/2017 10:30 AM PDT Harsha Selby MD [address] [facility], [address] [place] [address] FAX: PHYSICAL MEDICINE AND REHABILITATION [...] has no apparent deficits with short or longterm memory. The cranial nerves appear grossly intact. [...] of mild weakness on the left with frame fixer strength DATABASE: Cervical MRI competed 07/18/16 was [...] with Soumya Jackson. We discussed that surgi nicoals treatment is usually considered last resort. We [...] about potential side effects. I, Dr. Harsha eSlby, personally performed the services described in this [...] STREETER | | | | | | [id number] | | | | | | | | +--------+---------+ + + + | 11/21/ | Office | Cardiology | Yesi, | | 2019 | Visit | | JOSE ALBERTO Linder [address] | | | | | | [place], | | | | | | [place] [address] | | | | | | [phone] | | | | | | | [...]
--- OUTSIDE RECORDS SUMMARY | ~2019-04-12 | XMS | Encounter Summary ---
Demographics + + + | Address | [address] | | | [place] [address] | + + + | Home Phone [...] + | Author | [facility] | | | and [place] | + + + | Organization | [facility] | | | and [place] | + + + | Address | Unknown | + + + | Phone | Unavailable | + + + Support + + + + + | Name | Relationship | Address | Phone | + + + + + | Osmin Jackson | ECON | [address] | | | | | [place] [address] | | + + + + + | Hunter Jackson | ECON | [place] | | + + + + + | Wes Jackson | ECON | [place], [place] | | + + + + + | Oziel Jackson | ECON | [place], [place] | | + + + + + Care Team Providers + +------+ + | Care Swimmer Name | Role | Phone | + [...] ORTHOPEDIC SURGERY | MD [address] [facility] | carpometacarpal | | | | [address] [facility] | [facility] [place] | (CMC) joint of right | | | | [place], [place] | [address] | thumb (Primary Dx); | | | | [address] | | Rotator cuff tear | | | | [phone] | | arthropathy of right | | [...] [place] | | | | | | [address] | | | | | | | | +--------+---------+ + + + | 11/21/ | Office | Cardiology | Yesi, | | | 2019 | Visit | | JOSE ALBERTO Linder [address] | | | | | | [place], | | | | | | [place] [address] | | | | | | [phone] | | | | | | | [...]
--- OUTSIDE RECORDS SUMMARY | ~2019-04-12 | XMS | Encounter Summary ---
Demographics + + + | Address | [address] | | | [place] [address] | + + + | Home Phone [...] | Author | [facility] | | | and [place] | + + + | Organization | [facility] | | [...] | | | | | [place] [address] | | + + + + + | Hunter Jackson | ECON | [place] | | + + + + + | Wes Jackson | ECON | [place], [place] | | + + + + + | Oziel Jackson | ECON | [place], [place] | | + + + + + Care Team Providers + +------+ + | Care Provider Enrollment Specialist Name | Role | Phone | [...] + | 03/25/ | Office | [facility] | Alejandra Ferris MS | Dizziness (Primary | | 2011 | Visit | AUDIOLOGY AND | [facility] [address] | Dx) | | | | [facility]AR[facility] AID SERVICES | [address] [facility] | | | | | [address] | [place] [address] | | | | | [address] [facility] | [phone] | | | | | [place] [address] | | | | | | [phone] | | | +--------+---------+ + + + [...] being dizzy upon waking up one morning. Tyler like the room was spinning. 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 A full hearing evaluation was carried out and unruly ent was scheduled to see Dr. Davis, ENT. Please see audiogram for hearing test results.Sariah ctronically signed by Alejandra Ferris, CCC-A at 03/25/2012 1:00 PM Zion Rosas MD - 1 05/25/2011 12:00 AM [facility] ENT AND AUDIOLOGY [address] [place], [place] [address] FAX: [phone] OFFICE VISIT The patient comes in because she has had a couple of episodes where she had a lot of dizzin ess. She describes the episodes as problems when she would sometimes look down or look up, she would get a spinning type of sensation. This would go on and off probably for about a w chilkat. It then subsided and then occurred again [...] left. No other ENT complaints at the [facility] rent time. EXAMINATION GENERAL: Shows [...] on her hearing. Zion Davis MD / [facility] JOB #: [id number] signed by Zion Davis MD at 03/25/2012 [...] STREETER | | | | | | [id number] | | | | | | | | +--------+---------+ + + + | 11/21/ | Office | Cardiology | Yesi, | | | 2019 | Visit | | JOSE ALBERTO Linder [address] | | | | | | [place], | | | | | | [place] [address] | | | | | | [phone] | | | | | | | | +--------+---------+ + + + documented as of this encounter Visit Diagnoses + + | Diagnosis | + + | Dizziness - Primary Dizziness and giddiness | + + documented in this encounter"
--- OUTSIDE RECORDS SUMMARY | ~2019-04-12 | XMS | Encounter Summary ---
Demographics + + + | Address | [address] | | | [place] [address] | + + + | Home Phone [...] | Author | [facility] | | | and [place] | + + + | Organization | [facility] [...] [place] | | | | | [place] [address] | | + + + + + | Hunter Jackson | ECON | [place] | | + + + + + | Wes Jackson | ECON | [place], [place] | | + + + + + | Oziel Jackson | ECON | [place], [place] | | + + + + + Care Team Providers + +------+ + | Care Chain Sales Consultant Name | Role | Phone | + +------+ + | Gunderson, Kellie PA | PCP | | + +------+ + Encounter Details +--------+---------+ + + + | Date | Type | Department | Care Team | Description | +--------+---------+ + + + | 10/16/ | Office | [facility] | [place], | Aortic valve | | 2018 | Visit | CARDIOLOGY [address] | JOSE ALBERTO Linder [address] | insufficiency, | | | | [place], | [place], | etiology of cardiac | | | | [place] [address] | [place] [address] | valve disease | | | | [phone] | [phone] | unspecified (Primary | | | | | | Dx); Coronary | | | | | | artery disease | | | | | | involving aniak | | | | | | coronary artery of | | | | | | aniak heart with | | | | | [...] has a sleep apnea study scheduled in [place] next month MEDICAL, SURGICAL, AND PERSONAL HISTORY Past Medical, Surgical, Family, and Social History are reviewed in [facility]. 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 Seen at [facility] they had EKG and sent her home stating it was GERD B. Seen in the emergency room at [facility] for chest pain. Sh e was schedule for stress test and discharged home. C. Stress Test 05/16/16, is maximal asymptomatic stress test, [facility] er very poor function status, achieving maximal heart rate with 1 minute and 23 seconds, the re was a questionable ST depression 1 mm in the lateral leads, however, there was some degre e of artifact, moderate risk on Ikrk score of 1, recommend stress imaging modality. [...] central AI, no , trace TR, trace W[place], normal aorta other than mild calcification at [...] She is in a class I-II of [place] [employer] functional class.on physical examination the [...] this chart may have been created with Yellowsmith voice recognition software. Occasi onal wrong-word or [...] STREETER | | | | | | [address] | | | | | | | | +--------+---------+ + + + | 11/21/ | Office | Cardiology | Yesi, | | | 2019 | Visit | | JOSE ALBERTO Linder [address] | | | | | | [place] | | | | | | [place] [address] | | | | | | [phone] | | | | | | | [...] involving | | | | | | aniak coronary | | | | | | artery of aniak | | | | | | heart with unstable | | | | | | angina pectoris | | | | | | ([facility]) Essential | | | | | | hypertension with | | | | | | goal blood pressure | | | | | | less than 130/80 | | | | | | Inflammation of | | | | | | blood vessels ([facility]) | | | | | [...] MD | | | | | | ([id number]) on 10/16/2017 | | | | | [...] + + | Coronary artery disease involving aniak coronary artery of aniak heart with unstable | | angina pectoris [...]
--- OUTSIDE RECORDS SUMMARY | ~2019-04-12 | XMS | Encounter Summary ---
Demographics + + + | Address | [address] | | | [place] [address] | + + + | Home Phone | | + + + | Preferred Language | Unknown | + + + | Marital Status | Single | + + + | Pentecostalism Affiliation | Unknown | + + + | Race | Unknown | + + + | Ethnic Group | Other Race | + + + Author + + + | Organization | Unknown | + + + | Address | Unknown | + + + | Phone | Unavailable | + + + Support + + +---------+ + | Name | Relationship | Address | Phone | + + +---------+ + | None None | ECON | Unknown | Unavailable | + + +---------+ + Care Team Providers + +------+ + | Care Ice Sculptor Name | Role | Phone | + +------+ + PCP | Unavailable | + +------+ + Encounter Details +--------+ + + + + | Date | Type | Department | Care Team | Description | +--------+ + + + + | 04/03/ | Results | | Other, Faculty | | | 2004 | Only | | [phone] | | +--------+ + + + + [...] | + +--------+ + + + | DERMATOPATHOLOGY(WET | Routin | 05/22/2005 | | Results for this | | [facility]) | e | | | procedure are in the | | | | | | results section. | + +--------+ + + + | DERMATOPATHOLOGY(WET | Routin | 04/03/2005 | | Results for this | | [facility]) | e | | | procedure are in the | | | | | | results section. | + +--------+ + + + documented in this encounter Results DERMATOPATHOLOGY(WET [facility]) (05/22/2005) + + + + + + | Component | Value | Ref Range | Performed | Pathologist | | | | | At | Signature | + + + + + + | DERMATOPATH | SOURCE OF SPECIMEN:A | | | | | OLOGY(WET | FIRST TISSUE LEVEL IV | | | | | MNT) | [address] CLINICAL | | | | | | DESCRIPTION:Excision, | | | | | | back; exc. of a | | | | | | lymphocytic mass; margin | | | | | | check please. GROSS | | | | | | DESCRIPTION:Back, | | | | | | ellipse, 4.6 x 1.5 x 0.8 | | | | | | cm, inked, fifteen | | | | | | segments, | | | | | | sevencassettes. | | | | | | MICROSCOPIC | | | | | | DESCRIPTION:Adjacent to | | | | | | the surgical scar there | | | | | | are nodular aggregates | | | | | | of lymphocytesintermixed | | | | | | with plasma cells and | | | | | | occasional | | | | | | multinucleated | | | | | | epithelioidhistiocytes. | | | | | | The lymphocytic nuclei | | | | | | are small and uniform. 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 In a | | | | | | fewsections (A3-4) there | | | | | | are also changes of | | | | | | MELANOCYTIC NEVUS, | | | | | | INTRADERMALTYPE, which | | | | | | appears to be completely | | | | | | excised. There is no | | | | | | evidence in thecell | | | | | | marker and B-cell | | | | | | clonality studies to | | | | | | suggest lymphoma. | | | | | | Nonetheless,if the | | | | | | patient develops | | | | | | recurrent or additional | | | | | | similar lesions, | | | | | | evaluationof them would | | | | | | be prudent. | | | | | | LIZANDRO/jyi05/28/05Rendering | | | | | | Diagnostician: Matthew | | | | | | Martha Montero Jr., | | | | | | Viktoriai | | | | | | roya Signed 05/28/2005 | | | | + + + + + + + + | Specimen | + + | | + + + + + | Narrative | Performed At | + + + | [facility] | | + + + + + + + + | Performing | Address | City/State/Zipcode | Phone Number | | Organization | | | | + + + + + | [facility] | [address], [address] | [place] [address] | | | DERMATOPATHOLOGY | [address] | | | + + + + + DERMATOPATHOLOGY(WET [place]) (04/03/2005) + + + + + + | Component | Value | Ref Range | Performed | Pathologist | | | | | At | Signature | + + + + + + | DERMATOPATH | SOURCE OF SPECIMEN:A | | | | | OLOGY(WET | FIRST TISSUE LEVEL IV | | | | | MNT) | [address] CLINICAL | | | | | | DESCRIPTION:4 mm, back; | | | | | | 4 mo hx. plum colored | | | | | | plaque; BCC lymphoma or | | | | | | leukemia cutis. GROSS | | | | | | DESCRIPTION:Back, punch, | | | | | | 0.4 x 0.4 cm, bisected. | | | | | | MICROSCOPIC | | | | | | DESCRIPTION:There is a | | | | | | nodular infiltrate in | | | | | | the upper dermis | | | | | | consisting | | | | | | predominantlyof | | | | | | lymphocytes intermixed | | | | | | with a number of plasma | | | | | | cells. The | | | | | | lymphocyticnuclei are | | | | | | small and round to oval | | | | | | and relatively uniform | | | | | | with littlecytoplasm. | | | | | | The epidermis and | | | | | | adnexae are sparred. | | | | | | DIAGNOSIS:NODULAR | | | | | | LYMPHOCYTIC | | | | | | DERMATITIS.NOTE: | | | | | | Distinguishing between | | | | | | inflammatory cutaneous | | | | | | lymphocytic | | | | | | infiltrates(cutaneous | | | | | | lymphoid | | | | | | hyperplasia/pseudolympho | | | | | | ma) and lymphoma | | | | | | utilizingroutine stains | | | | | | alone is challenging | | | | | | although many of the | | | | | | changes suggestthe | | | | | | process is inflammatory. | | | | | | Cell markers may add | | | | | | information helpful | | | | | | infurther characterizing | | | | | | the lymphocytic | | | | | | infiltrate and | | | | | | distinguishingbetween | | | | | | these possibilities. | | | | | | The lymphocytic | | | | | | infiltrate extends to | | | | | | thesurgical margins. | | | | | | There is no evidence | | | | | | of basal cell carcinoma. | | | | | | | | | | | | LIZANDRO/denzelyi04/10/05Rendering | | | | | | Diagnostician: | | | | | | Matthew Montero Jr., | | | | | | MJulioPathologistElectroni | | | | | | roya Signed 04/10/2005 | | | | + + + + + + + + | Specimen | + + | | + + + + + | Narrative | Performed At | + + + | Ordered latisha Garcia | | + + + + + + + + | Performing | Address | City/State/Zipcode | Phone Number | | Organization | | | | + + + + + | [facility] | [address], [address] | [place] [phone] | | | DERMATOPATHOLOGY | [address] | | | + + + + + documented in this encounter Visit Diagnoses Not on filedocumented in this encounter"
--- OUTSIDE RECORDS SUMMARY | ~2019-04-12 | XMS | Encounter Summary ---
Demographics + + + | Address | [address] | | | [place] [address] | + + + | Home Phone | | + + + | Preferred Language | Unknown | + + + | Marital Status | | + + + | Advent Affiliation | Unknown | + + + | Race | Unknown | + + + | Ethnic Group | Unknown | + + + Author + + + | Author | [facility] | | | and [place] | + + + | Organization | [facility] | | [...] | | | | | [place] [address] | | + + + + + | Hunter Jackson | ECON | [place] | | + + + + + | Wes Jackson | ECON | [place], [place] | | + + + + + | Oziel Jackson | ECON | [place], [place] | | + + + + + Care Team Providers + +------+ + | Care Near East Archeology Professor Name | Role | Phone | + +------+ + | Rodolfo Cruz MD | PCP | | + +------+ + Reason for Visit + + + | Reason | Comments | + + + | Referral | | | (PreAuthorization) | | + + + Encounter Details +--------+ + + + + | Date | Type | Department | Care Team | Description | +--------+ + + + + | 09/29/ | Telephone | [facility] | Rodolfo Cruz, | Referral | | 2012 | | [facility] | [address] | (PreAuthorization) | | | | [address] | [place] | | | | | [place] | [address] | | | | | [address] | | | | | | [phone] | | | +--------+ + + + [...] | | | | | | [place] [address] | | | | | | [phone] | | | | | | | | +--------+---------+ + + + documented as of this encounter Visit Diagnoses Not on filedocumented in this encounter"
--- OUTSIDE RECORDS SUMMARY | ~2019-04-12 | XMS | Encounter Summary ---
Demographics + + + | Address | [address] | | | [place] [address] | + + + | Home Phone [...] | Author | [facility] | | | and [place] | + + + | Organization | [facility] [...] | | | | | [place] [address] | | + + + + + | Hunter Jackson | ECON | [place] | | + + + + + | Wes Jackson | ECON | [place], [place] | | + + + + + | Oziel Jackson | ECON | [place], [place] | | + + + + + Care Team Providers + +------+ + | Care City Bailiff Name | Role | Phone | + [...] [place], | | | | | | [address] | [place] [address] | | | | | | Phone: | Phone: | | | | | | [phone] | [phone] | | | | | | Fax: | Fax: | | | | | | [phone] | [phone] | +--------+ + + + + + Encounter Details +--------+---------+ + + + | Date | Type | Department | Care Team | Description | +--------+---------+ + + + | 06/29/ | Office | [facility] | Zion Valencia MD | Epistaxis (Primary | | 2015 | Visit | OTOLARYNGOLOGY [address] | [address] | Dx) | | | | [address] | [address] [place], | | | | | [place] | [place] [address] | | | | | [address] | [phone] | | | | | [phone] | | | +--------+---------+ + + + [...] MD - 06/29/2014 11:54 AM PST [facility] OTOLARYNGOLOGY [address] [facility] [address] OFFICE NOTE ZION VALENCIA MD Patient: JACLYN JACKSON Admitting: MR #: [id number] LOC: PT TYPE: Adm Date: 06/29/2014 : [...] Transcribed on 06/29/2014 12:05:14 by johnny velázquez# [id number] Confirmation #: [id number] cc: SUGAR CRUZ MD Zion porras MD - 06/29/2014 11:51 AM PSTSee dictation # [id number] signed by Zion Valencia MD at 06/29/2014 [...] [place] | | | | | | [address] | | | | | | | | +--------+---------+ + + + | 11/21/ | Office | Cardiology | Yesi, | | | 2019 | Visit | | JOSE ALBERTO Linder [address] | | | | | | [place], | | | | | | [place] [address] | | | | | | [phone] | | | | | | | | +--------+---------+ + + + documented as of this encounter Visit Diagnoses + + | Diagnosis | + + | Epistaxis - Primary | + + documented in this encounter
--- OUTSIDE RECORDS SUMMARY | ~2019-04-12 | XMS | Encounter Summary ---
Demographics + + + | Address | [address] | | | [place] [address] | + + + | Home Phone [...] | Author | [facility] | | | and [place] | + + + | Organization | [facility] | [...] | | | | | [place] [address] | | + + + + + | Hunter Jackson | ECON | [place] | | + + + + + | Wes Jackson | ECON | [place], [place] | | + + + + + | Oziel Jackson | ECON | [place], [place] | | + + + + + Care Team Providers + +------+ + | Care Dairy Truck Driver Name | Role | Phone [...] | Cardiology | Diagnoses | Nancy, | Mnedez, | | | Services | | Essential | Rodolfo Reilly MD | MD Irina | | | Required | | hypertension | [address] | [address] | | | | | | [address] [place] | [address] | | | | | | [place], [place] | [place], | | | | | | [address] | [place] [address] | | | | | | Phone: | Phone: | | | | | | [phone] | [phone] | | | | | | Fax: | Fax: | | | | | | [phone] | [phone] | +--------+ + + + + + [...] [place], | | | | | | [address] | [place] [address] | | | | | | Phone: | Phone: | | | | | | [phone] | [phone] | | | | | | Fax: | Fax: | | | | | | [phone] | [phone] | +--------+ + + + + + [...] Pulmonary | Rodolfo Reilly MD | [address] | | | | | nodules | [address] | [place], | | | | | Procedures | AVE [place] | [place] [address] | | | | | CT Chest w | [place], [place] | Phone: | | | | | Contrast | [address] | [phone] | | | | | AFTER | Phone: | Fax: | | | | | 02/17/15 | [phone] | [phone] | | | | | | Fax: | | | | | | | [phone] | | +--------+--------+ + + + + Reason for Visit + + + | Reason | Comments | + + + | Follow-up | Back pain. Review Labs | + + + | Epistaxis | In ER at [facility] on 08/22/14 | + + + Encounter Details +--------+---------+ + + + | Date | Type | Department | Care Team | Description | +--------+---------+ + + + | 08/24/ | Office | [facility] | Rodolfo Cruz, | Insomnia (Primary | | 2015 | Visit | MEDICINE [address] | [address] | Dx); Pulmonary | | | | [address] [place] | [place] | nodules; Recurrent | | | | [facility] [place] [address] | [address] | epistaxis; Other | | | | [phone] | | specified | | | | [...] [place] | | | | | | [address] | | | | | | | | +--------+---------+ + + + | 11/21/ | Office | Cardiology | Yesi, | | | 2019 | Visit | | JOSE ALBERTO Linder [address] | | | | | | [place], | | | | | | [place] [address] | | | | | | [phone] | | | | | | | [...] + | [address] | [address] | [place] | [phone] | | [facility] | | [address] | | | - IMAGING | | [...] [address] | [place] | [phone] | | [facility] | | [address] | | | - LABORATORY | | [...] | samples are screened | uIU/mL | [facility] | | | | using a [...] + | [facility] | [address] | [place] | [phone] | | [facility] | | [address] | | | - LABORATORY | | [...]
--- OUTSIDE RECORDS SUMMARY | ~2019-04-12 | XMS | Encounter Summary ---
Demographics + + + | Address | [address] | | | [place] [address] | + + + | Home Phone [...] | [facility] | | | and [place] | + + + | Organization | [facility] | | | and [place] | + + + | Address | Unknown | + + + | Phone | Unavailable | + + + Support + + + + + | Name | Relationship | Address | Phone | + + + + + | Osmin Jackson | ECON | [address] | | | | | [place] [address] | | + + + + + | Hunter Jackson | ECON | [place] | | + + + + + | Wes Jackson | ECON | [place], [place] | | + + + + + | Oziel Jackson | ECON | [place], [place] | | + + + + + Care Team Providers + +------+ + | Care Certified Nurses' Aide Name | Role | Phone | + +------+ + | Gunderson, Kellie PA | PCP | | + +------+ + Encounter Details +--------+ + + + + | Date | Type | Department | Care Team | Description | +--------+ + + + + | 05/09/ | Imaging | [facility] | Provider, | | | 2016 | Exam | [facility]TER[facility] | [address] | | | | | IMAGING | [address] [address] | | | | | [phone] | [place] [address] | | +--------+ + + + + [...] [place] | | | | | | [address] | | | | | | | | +--------+---------+ + + + | 11/21/ | Office | Cardiology | Yesi, | | | 2019 | Visit | | JOSE ALBERTO Linder [address] | | | | | | [place], | | | | | | [place] [address] | | | | | | [phone] | | | | | | | [...]
--- OUTSIDE RECORDS SUMMARY | ~2019-04-12 | XMS | Encounter Summary ---
Demographics + + + | Address | [address] | | | [place] [address] | + + + | Home Phone [...] + | Author | [facility] | | | and [place] | + + + | Organization | [facility] | | [...] | | | | | [place] [address] | | + + + + + | Hunter Jackson | ECON | [place] | | + + + + + | Wes Jackson | ECON | [place], [place] | | + + + + + | Oziel Jackson | ECON | [place], [place] | | + + + + + Care Team Providers + +------+ + | Care Foot Setter Name | Role | Phone | [...] Dx); | | | | [address] | [place], [place] | Rotator cuff | | | | [place] | [address] | syndrome of right | | | | [address] | | shoulder | | | | [phone] | | | +--------+---------+ + + + [...] [place] | | | | | | [address] | | | | | | | | +--------+---------+ + + + | 11/21/ | Office | Cardiology | Yesi, | | | 2019 | Visit | | JOSE ALBERTO Linder [address] | | | | | | [place], | | | | | | [place] [address] | | | | | | [phone] | | | | | | | [...]
--- OUTSIDE RECORDS SUMMARY | ~2019-04-12 | XMS | Encounter Summary ---
Demographics + + + | Address | [address] | | | [place] [address] | + + + | Home Phone [...] + + + | Author | [facility] | | | and [place] | + + + | Organization | [facility] | | [...] [place] | | | | | [place] [address] | | + + + + + | Hunter Jackson | ECON | [place] | | + + + + + | Wes Jackson | ECON | [place], [place] | | + + + + + | Oziel Jackson | ECON | [place], [place] | | + + + + + Care Team Providers + +------+ + | Care Supply Chain Consultant Name | Role | Phone | [...] | | | atherosclero | | [address] | | | | | sis of | | [place], | | | | | unspecified | | [place] [address] | | | | | type of | | Phone: | | | | | vessel, | | [phone] | | | | | [place] | | Fax: | | | | | graft | | [phone] | | | | | Coronary | | | | | | | atherosclero | | | | | | | sis of | | | | | | | unspecified | | | | | | | type of | | | | | | | vessel, | | | | | | | [place] or | | | | | | | graft | | | | | | | Procedures | | | | | | | [place] ENDOSCOPY | | | | | | | | | | | | | | W/VIDEO-ASST | | | | | | | VEIN | | | | | | | HARVEST,CABG | | | | | | | [place] CABG, | | | | | | | ARTERY-VEIN, | | | | | | | FOUR [place] | | | | | | | CABG, | | | | | | | ARTERIAL, | | | | | | | SINGLE | | | +--------+--------+ + + + + Encounter Details +--------+ + + + + | Date | Type | Department | Care Team | Description | +--------+ + + + + | 10/31/ | Hospital | [facility] | Amna Benavides, | Coronary artery | | 2017 | Encounter | [facility] | PA-C [address] | disease, angina | | | | ELECTRODIAGNOSTICS | EULOGIO [address] [place], [place] | presence | | | | [address] | [address] | unspecified, | | | | [place] | | unspecified vessel | | | | [address] | | or lesion type, | | | | [phone] | | unspecified whether | | | | | | [place] or | | | | | | [...] | | | | | | [place] [address] | | | | | | [phone] | | | | | | | [...] whether | | | | | | [place] or | | | | | | [...] | TRACEMASTER | | Duration:148 msP Horizontal [place]:24 degP Front [place]:69 degQ Onset:512 | | | msQRSD Interval:84 msQT Interval:424 msQTcB:406 msQTcF:412 msQRS | | | Horizontal [place]:4 degQRS [place]:36 degI-40 Horizontal [place]: degI-40 | | | Front [place]:30 degT-40 Horizontal [place]:-7 degT-40 Front [place]:36 degT | | | Horizontal [place]:60 degT Wave [place]:61 degS-T Horizontal [place]:108 degS-T | | | Front [place]:89 degSeverity:- ABNORMAL ECG -INTERP:SINUS | | | RHYTHMINTERP:CONSIDER LEFT VENTRICULAR HYPERTROPHYElectronically | | | signed by: Ramin PEREZ 11-01-2016 06:15:12 | | |QTcB:406 ms | | |QTcF:412 ms | | |QRS Horizontal [place]:4 deg | | |QRS [place]:36 deg | | |I-40 Horizontal [place]: deg | | |I-40 Front [place]:30 deg | | |T-40 Horizontal [place]:-7 deg | | |T-40 Front [place]:36 deg | | |T Horizontal [place]:60 deg | | |T Wave [place]:61 deg | | |S-T Horizontal [place]:108 deg | | |S-T Front [place]:89 deg | | |Severity:- ABNORMAL ECG - | | |INTERP:SINUS RHYTHM | | |INTERP:CONSIDER LEFT VENTRICULAR HYPERTROPHY | | |Electronically signed by: Ramin PEREZ 11-01-2016 06:15:12 | | + + + + + + + + | Performing | Address | City/State/Zipcode | Phone Number | | Organization | | | | + + + + + | [facility] | [address] | [place] [address] | [phone] | + + + + + documented in this encounter Visit Diagnoses + + | Diagnosis | + + | Coronary artery disease, angina presence unspecified, unspecified vessel or lesion | | type, unspecified whether [place] or transplanted heart | + + | Valvular heart disease Endocarditis, valve unspecified, unspecified cause | + + documented in this encounter"
--- OUTSIDE RECORDS SUMMARY | ~2019-04-12 | XMS | Encounter Summary ---
Demographics + + + | Address | [address] | | | [place] [address] | + + + | Home Phone [...] + + | Author | [facility] | | | and [place] | + + + | Organization | [facility] | | [...] | | | | | [place] [address] | | + + + + + | Hunter Jackson | ECON | [place] | | + + + + + | Wes Jackson | ECON | [place], [place] | | + + + + + | Oziel Jackson | ECON | [place], [place] | | + + + + + Care Team Providers + +------+ + | Care Pilot Plant Operator Name | Role | Phone [...] + | 05/17/ | Telephone | [facility] | Yesi, | Lab Order (due for | | 2015 | | CARDIOLOGY [address] | JOSE ALBERTO Linder [address] | fasting labs) | | | | [place], | [place], | | | | | [place] [address] | [place] [address] | | | | | [phone] | [phone] | | | | | | | [...] STREETER | | | | | | [address] | | | | | | | | +--------+---------+ + + + | 11/21/ | Office | Cardiology | Yesi, | | | 2019 | Visit | | JOSE ALBERTO Linder [address] | | | | | | [place] | | | | | | [place] [address] | | | | | | [phone] | | | | | | | | +--------+---------+ + + + documented as of this encounter Visit Diagnoses + + | Diagnosis | + + | Hyperlipidemia, unspecified hyperlipidemia - Primary | + + documented in this encounter"
--- OUTSIDE RECORDS SUMMARY | ~2019-04-12 | XMS | Encounter Summary ---
Demographics + + + | Address | [address] | | | [place] [address] | + + + | Home Phone [...] | Author | [facility] | | | and [place] | + + + | Organization | [facility] | | | and [...] | | | | | [place] [address] | | + + + + + | Hunter Jackson | ECON | [place], [place] | | + + + + + | Wes Jackson | ECON | [place], [place] | | + + + + + | Oziel Jackson | ECON | [place], [place] | | + + + + + Care Team Providers + +------+ + | Care Pulmonary Fellow Name | Role | Phone | + [...] + + | 06/18/ | Telephone | [facility] [place] | Yesi, | Appointment | | 2016 | | [place] [address] | JOSE ALBERTO Linder [address] | | | | | [place], | [place], | | | | | [place] [address] | [place] [address] | | | | | [phone] | [phone] | | | | | | | [...] STREETER | | | | | | [address] | | | | | | | | +--------+---------+ + + + | 11/21/ | Office | Cardiology | Yesi | | | 2019 | Visit | | JOSE ALBERTO Linder [address] | | | | | | [place] | | | | | | [place] [address] | | | | | | [phone] | | | | | | | | +--------+---------+ + + + documented as of this encounter Visit Diagnoses Not on filedocumented in this encounter"
--- OUTSIDE RECORDS SUMMARY | ~2019-04-12 | XMS | Encounter Summary ---
Demographics + + + | Address | [address] | | | [place] [address] | + + + | Home Phone [...] | [facility] | | | and [place] | + + + | Organization | [facility] [...] | | | | | [place] [address] | | + + + + + | Hunter Jackson | ECON | [place] | | + + + + + | Wes Jackson | ECON | [place], [place] | | + + + + + | Oziel Jackson | ECON | [place], [place] | | + + + + + Care Team Providers + +------+ + | Care Convertible Power Shovel Operator Name | Role | Phone | [...] + + | 08/18/ | Office | [facility] | Ulysses Jensen, | Rotator cuff | | 2014 | Visit | ORTHOPEDIC SURGERY | MD Danny PARHAM | syndrome of right | | | | [address] [facility] | [place] | shoulder (Primary | | | | [place] | [address] | Dx); [facility] [place] | | | | [address] | | | | | | [phone] | | | +--------+---------+ + + + [...] STREETER | | | | | | [id number] | | | | | | | | +--------+---------+ + + + | 11/21/ | Office | Cardiology | Yesi, | | | 2020 | Visit | | JOSE ALBERTO Linder [address] | | | | | | [place], | | | | | | [place] [address] | | | | | | [phone] | | | | | | | [...]
--- OUTSIDE RECORDS SUMMARY | ~2019-04-12 | XMS | Encounter Summary ---
Demographics + + + | Address | [address] | | | [place] [address] | + + + | Home Phone [...] | Author | [facility] | | | and [place] | + + + | Organization | [facility] | [...] [place] | | | | | [place] [address] | | + + + + + | Hunter Jackson | ECON | [place] | | + + + + + | Wes Jackson | ECON | [place], [place] | | + + + + + | Oziel Jackson | ECON | [place], [place] | | + + + + + Care Team Providers + +------+ + | Care Fishing Vessel Operator Name | Role | Phone | [...] | [address] | | | | | [address] | | | | | | [phone] | | | +--------+--------+ + + + [...] | | | | | | [place] [address] | | | | | | [phone] | | | | | | | | +--------+---------+ + + + documented as of this encounter Visit Diagnoses Not on filedocumented in this encounter"
--- OUTSIDE RECORDS SUMMARY | ~2019-04-12 | XMS | Encounter Summary ---
Demographics + + + | Address | [address] | | | [place] [address] | + + + | Home Phone [...] | [facility] | | | and [place] | + + + | Organization | [facility] | | | [...] | | | | | [place] [address] | | + + + + + | Hunter Jackson | ECON | [place] | | + + + + + | Wes Jackson | ECON | [place], [place] | | + + + + + | Oziel Jackson | ECON | [place], [place] | | + + + + + Care Team Providers + +------+ + | Care Back Stayer Name | Role | Phone | + +------+ + | Rodolfo Cruz MD | PCP | | + +------+ + Encounter Details +--------+---------+ + + + | Date | Type | Department | Care Team | Description | +--------+---------+ + + + | 10/29/ | Office | [facility] | Ulysses Jensen, | [facility] arthritis | | 2012 | Visit | ORTHOPEDIC SURGERY | [address] [facility] | (Primary Dx) | | | | [address] [place] [address] | [place], [place] | | | | | [place], [place] | [address] | | | | | [address] | | | | | | [phone] | | | +--------+---------+ + + + [...] | | | | | | [place] [address] | | | | | | [phone] | | | | | | | [...] | | | | | Infiltration, ONCE, [facility] 10/29/12 | | AM PDT | [...] PDT | | | | | ONCE, [facility] 10/29/12 at 1130, For 1 | | | | | | | dose, Shake well. Not for IV | | | | | | | use., | | | | | | + +-------+ +-------+---+---+ +---+---+ | | | +---+---+ documented in this encounter"
--- OUTSIDE RECORDS SUMMARY | ~2019-04-12 | XMS | Encounter Summary ---
Demographics + + + | Address | [address] | | | [place] [address] | + + + | Home Phone [...] Author | [facility] | | | and [place] | + + + | Organization | [facility] | | [...] | | | | | [place] [address] | | + + + + + | Hunter Jackson | ECON | [place] | | + + + + + | Wes Jackson | ECON | [place], [place] | | + + + + + | Oziel Jackson | ECON | [place], [place] | | + + + + + Care Team Providers + +------+ + | Care Registered Nurse Step Down Name | Role | Phone | + [...] | Rodolfo Reilly MD | [address] | | | | | sprain and | [address] | [place], | | | | | strain, | [address]VE [place] | [place] | | | | | initial | [place], [place] | [address] | | | | | encounter | [address] | Phone: | | | | | Procedures | Phone: | [phone] | | | | | MRI Thoracic | [phone] | Fax: | | | | | Spine wo | Fax: | [phone] | | | | | Contrast | [phone] | | +--------+--------+ + + + + [...] | Rodolfo Reilly MD | [address] | | | | | sprain and | [address] | [place], | | | | | strain, | AVE [place] | [place] | | | | | initial | [place], [place] | [address] | | | | | encounter | [address] | Phone: | | | | | Procedures | Phone: | [phone] | | | | | MRI Thoracic | [phone] | Fax: | | | | | Spine wo | Fax: | [phone] | | | | | Contrast | [phone] | | +--------+--------+ + + + + Encounter Details +--------+ + + + + | Date | Type | Department | Care Team | Description | +--------+ + + + + | 10/26/ | Hospital | [facility] | Rodolfo Cruz, | Thoracic sprain and | | 2013 | Encounter | MED CTR MRI [address] | strain, initial | | | | [place], | [place], [place] | encounter | | | | [place] [address] | [address] | | | | | [phone] | | | +--------+ + + + [...] [place] | | | | | | [address] | | | | | | | | +--------+---------+ + + + | 11/21/ | Office | Cardiology | Yesi, | | | 2019 | Visit | | JOSE ALBERTO Linder [address] | | | | | | [place], | | | | | | [place] [address] | | | | | | [phone] | | | | | | | [...] | | | limitations of the large arept-id-qhir sagittal images provided. | | | Cervical [...] noted at the base of the right S0sosfkdfttb process. A 3.1 cm rounded | | region of heterogeneously decreased J1cqmcwm is noted in the left humeral head [...] for limitations of the large | | xzgqd-zt-rsus sagittal imagesprovided. Cervical neural foramina are not [...] + | MISCELLANEOUS LAB | | | [phone] | + +---------+ + + | MISCELANIOUS LAB | | | [phone] | + +---------+ + + documented in this encounter Visit Diagnoses + + | Diagnosis | + + | Thoracic sprain and strain, initial encounter | + + documented in this encounter"
--- OUTSIDE RECORDS SUMMARY | ~2019-04-12 | XMS | Encounter Summary ---
Demographics + + + | Address | [address] | | | [place] [address] | + + + | Home Phone [...] | Author | [facility] | | | and [place] | + + + | Organization | [facility] [...] | | | | | [place] [address] | | + + + + + | Hunter Jackson | ECON | [place] | | + + + + + | Wes Jackson | ECON | [place], [place] | | + + + + + | Oziel Jackson | ECON | [place], [place] | | + + + + + Care Team Providers + +------+ + | Care Thermostat Repairer Name | Role | Phone | + +------+ + PCP | Unavailable | + +------+ + Encounter Details +--------+ + + + + | Date | Type | Department | Care Team | Description | +--------+ + + + + | 11/03/ | [facility] | [facility] | Rodolfo Cruz, | | | 2008 | Encounter | MED CTR XRAY [address] | [address] | | | | | [place] | [place], [place] | | | | | [place] [address] | [address] | | | | | [phone] | | | +--------+ + + + [...] | | | | | | [place] [address] | | | | | | [phone] | | | | | | | | +--------+---------+ + + + documented as of this encounter Visit Diagnoses Not on filedocumented in this encounter"
--- OUTSIDE RECORDS SUMMARY | ~2019-04-12 | XMS | Encounter Summary ---
Demographics + + + | Address | [address] | | | [place] [address] | + + + | Home Phone [...] + | Author | [facility] | | | and [place] | + + + | Organization | [facility] | | [...] | | | | | [place] [address] | | + + + + + | Hunter Jackson | ECON | [place] | | + + + + + | Wes Jackson | ECON | [place], [place] | | + + + + + | Oziel Jackson | ECON | [place], [place] | | + + + + + Care Team Providers + +------+ + | Care Industrial Nurse Name | Role | Phone | + +------+ + | Rodolfo Cruz MD | PCP | | + +------+ + Reason for Visit + + + | Reason | Comments | + + + | Follow-up | | + + + | Heart Murmur | | + + + | Hypertension | | + + + | Hyperlipidemia | | + + + Encounter Details +--------+---------+ + + + | Date | Type | Department | Care Team | Description | +--------+---------+ + + + | 11/17/ | Office | [facility] [place] | Yesi, | Hyperlipidemia | | 2014 | Visit | CARDIOLOGY [address] | JOSE ALBERTO Linder [address] | (Primary Dx); | | | | [place], | [place], | Valvular heart | | | | [place] [address] | [place] [address] | disease; Essential | | | | [phone] | [phone] | hypertension | | | | | | | [...] + + + | Blood Pressure | 142/78 | 11/17/2014 1:29 PM | | | | | PDT | | + + + + + | Pulse | 60 | 11/17/2014 1:29 PM | | | | | PDT | | + + + + + | Temperature | - | - | | + + + + + | Respiratory Rate | 16 | 11/17/2014 1:29 PM | | | | | PDT | | + + + + + | Oxygen Saturation | - | - | | + + + + + | Inhaled Oxygen | - | - | | | Concentration | | | | + + + + + | Weight | 84.8 kg (187 lb) | 11/17/2014 1:29 PM | | | | | PDT | | + + + + + | Height | 162.6 cm (5' 4") | 11/17/2014 1:29 PM | | | | | PDT | | + + + + + | Body Mass Index | 32.1 | 11/17/2014 1:29 PM | | | | | PDT | | + + + + + documented in this encounter Patient Instructions Patient Instructions Niyah Padilla ARNP - 11/17/2014 1:58 PM PDT1. Increase Amlodipine 10 mg once every night 2. check blood pressure and pulse twice daily for two weeks and return the log to our offic e. 3. Follow up in 6 months documented in this encounter Progress Notes Niyah Padilla ARNP - 11/17/2014 1:19 PM PDTFormatting of this note might be different f rom the original. PATIENT NAME: Soumya Jackson : 1935: AGE: 79 y.o. PRIMARY CARE: Rodolfo Cruz MD OUTPATIENT FOLLOW UP VISIT Date of Service: 11/17/14 HISTORY OF PRESENT ILLNESS: Soumya Jackson is a 79 y.o. female with a history of essential moderate aortic valve insu fficiency, hypertension, osteoarthritis, hypothyroidism, dyslipidemia, elevated CRP. She is being seen today for follow up hypertension and aortic valve insufficiency. She was last seen 10/17/2014 at which time she was schedule for echocardiogram, she was rec ommended to increase physical activity, start hydrochlorothiazide 25 mg once a day per mouth , check blood pressure log for 2 weeks, start atorvastatin 10 mg daily with a follow-up appo intment in 4 weeks. Since that time, she states that she couldn't deal with her dehydration after a long exposure to heat so she stopped taking hydrocortisone side. She brings blood pressure log that shows blood pressure ranging between 130/60 to 169/75 with most systolic b lood pressures in the 150. Her heart rate ranges between 55 and 66 bpm. She has not been e xercising because of back issues. She feels that she has a "hot pack in my back that stays there all the time". She is in the process of contacting physiatry to get some back injecti ons for her back pain. She has stopped exercising because of back issues. She was exercisi ng on the pool regularly before. She denies any chest pain, chest pressure, increase shortn ess of breath, lightheadedness, dizziness, palpitations or increase in leg swelling. She's able to sleep at night laying in bed without experiencing any increase in shortness of breat h. MEDICAL, SURGICAL, AND PERSONAL HISTORY Past Medical, [...] troponin Essential hypertension Other specified anemias Murmur CURRENT MEDICATIONS Current Outpatient Prescriptions Medication Sig Dispense Refill albuterol 90 mcg/puff inhaler 2 puff po q 4 hours prn 1 Inhaler 0 amLODIPine (NORVASC) 5 mg tablet Take 1.5 tablets by mouth Daily. (Patient taking diffe rently: Take 2.5 mg by mouth Daily.) 120 tablet 3 atorvaSTATin (LIPITOR) 10 mg tablet Take 1 tablet by mouth nightly. 30 tablet 5 BIOTIN PO Take 500 mg [...] Constitutional: Negative for malaise/fatigue. Respiratory: Negative for cough and shortness of breath. Cardiovascular: Negative for chest pain and leg swelling. Musculoskeletal: Positive for back pain. Neurological: Negative for dizziness. OBJECTIVE: PHYSICAL EXAM BP 142/78 mmHg | Pulse 60 | Resp 16 | Ht 1.626 m (5' 4") | Wt 84.823 kg (187 lb) | BMI 32.0 8 kg/m2 Physical Exam Constitutional: She appears well-developed [...] a depressed mood. ECG: I personally reviewed EKG tracing from 10/17/2014. See scanned document for further i nterpretation. LAB RESULTS: LIPID Lab Results Component Value Date CHOL 179 10/22/2013 TRIG 80 10/22/2013 HDL 62 10/22/2013 LDL 101 10/22/2013 CHOLHDL 2.9 10/22/2013 CHEMISTRY Lab Results Component Value Date GLU 118* 10/25/2014 NA 132* 10/25/2014 K 3.6 10/25/2014 CL 96* 10/25/2014 CO2 30 10/25/2014 CALCIUM 8.9 10/25/2014 ALKPHOS 69 10/25/2014 AST 21 10/25/2014 ALT 13 10/25/2014 BILITOT 0.3 10/25/2014 CREA 0.76 10/25/2014 BUN 13 10/25/2014 EGFR 60 09/03/2012 HEMATOLOGY Lab Results Component Value Date WBC 10.4 10/25/2014 HGB 13.9 10/25/2014 HCT 40.9 10/25/2014 PLT 328 10/25/2014 I reviewed records from PCP for office visit on 10/25/2014. ASSESSMENT: 1. Essential hypertension A. Today, blood pressure is elevated. She said her blood pressure at home is running betw een 150-160 mmHg. Otherwise, she is asymptomatic. There is no signs and symptoms of overt c ongestive heart failure. She is in a class I of [place] [employer] functional class . There is no fluid retention on physical examination. So far, blood work including CBC, kidney function. Patient was started on it but did not tolerate the medication because she felt "dehydrated". The plan will be to increase her aml odipine and follow with a blood pressure log to see if this will be enough to control her bl ood pressure more adequately. 2. Heart murmur due to aortic valve [...] on 11/03/13, there is no significant changes. Results of echocardiogram have been reviewed with the patient and her friend here present. Questions have been answered. 3. Dyslipidemia and elevated CRP A. CRP is 9.6 on 08/03/14. Tolerating atorvastatin PLAN: 1. Patient will increase Amlodipine 10 mg by mouth daily at bedtime 2. check blood pressure and pulse twice daily for two weeks and return the log to our offic e. 3. She will follow up in 6 months, or sooner with concerns. I, JOSE ALBERTO Bro, saw this patient under the direct supervision of Irina Simms MD Portions of this chart may have been created with [employer] voice recognition software. Occasi onal wrong-word or [...] | 11/21/ | Office | Cardiology | Ysei, | | | 2019 | Visit | | JOSE ALBERTO Linder [address] | | | | | | [place], | | | | | | [place] [address] | | | | | | [phone] | | | | | | | | +--------+---------+ + + + documented as of this encounter Visit Diagnoses + + | Diagnosis | + + | Hyperlipidemia - Primary Other and unspecified hyperlipidemia | + + | Valvular heart disease Endocarditis, valve unspecified, unspecified cause | + + | Essential hypertension Unspecified essential hypertension | + + documented in this encounter
--- OUTSIDE RECORDS SUMMARY | ~2019-04-12 | XMS | Clinical Summary ---
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 | | [...] | AI, no , trace TR, trace ND, normal aorta other than mild | | [...] [place]REET[place] | | | | | | [address] | | | | | | | | +--------+---------+ + + + | 11/21/ | Office | Cardiology | Yesi, | | | 2019 | Visit | | JOSE ALBERTO Linder [address] | | | | | | [place] | | | | | | [place] [address] | | | | | | [phone] | | | | | | | | +--------+---------+ + + + + + + + + | Health Maintenance | Due Date | Last Done | Comments | + + + + + | Vaccine: | | | | | Dtap/Tdap/Td (1 - | 7 | | | | Tdap) | | [...] + +--------+ | MEDICARE | MEDICA | [id number] | | [phone] | | Medica | | | RE | | 003-Pr | 5 | | re | | | PART A | | esent | | | | | | AND B | | | | | | + +--------+ +--------+ + +--------+ | MODA | MODA | [id number] | 07/11/19 | [phone] | [address] | Indemn | | | HEALTH | | 08-Pre | 9 | [address] | ity | | | MDCR | | sent | | [place], | | | | [place] | | | | [place] [address] | | + +--------+ +--------+ + +--------+ [...] [place] | | | 9 (Home) | [address] | + +--------+ +--------+ + + Advance Directives + + + + + | Type | Date Recorded | Patient | Explanation | | | | X Ray Operator | | + + + + + | Power of | | | | | Grout Worker | | | | + + + [...]
--- OUTSIDE RECORDS SUMMARY | ~2019-04-12 | XMS | Encounter Summary ---
Demographics + + + | Address | [address] | | | [place] [address] | + + + | Home Phone [...] | Author | [facility] | | | and Ohana | + + + | Organization | [facility] | [...] | | | | | [place] [address] | | + + + + + | Hunter Jackson | ECON | [place] | | + + + + + | Wes [place] | ECON | [place], [place] | | + + + + + | Oziel [place] | ECON | [place], [place] | | + + + + + Care Team Providers + +------+ + | Care Piccolo Mechanic Name | Role | Phone | [...] [place] | | | | | | [address] | [address] Phone: | | | | | | Phone: | [phone] | | | | | | [phone] | Fax: | | | | | | Fax: | [phone] | | | | | | [phone] | | +--------+ + + + + [...] | thoracic | [address] | [place] | | | | n | back pain | [address] [place] | [place], | | | | | [address] | [place] | [place] [address] | | | | | (ICD-9-CM) - | [address] | Phone: | | | | | Midline | Phone: | [phone] | | | | | thoracic | [phone] | Fax: | | | | | back pain | Fax: | [phone] | | | | | Procedures | [phone] | | | | | | pt [...] + + | 07/18/ | Office | [facility] | Rodolfo Cruz, | Midline thoracic | | 2015 | Visit | MEDICINE [address] | [address] | back pain (Primary | | | | Street [place] | [place] | Dx); Depression with | | | | [place] [address] | [address] | anxiety | | | | [phone] | | | +--------+---------+ + + + [...] She would like to see a spine account assistant. She had a nervous breakdown in the [...] STREETER | | | | | | [id number] | | | | | | | | +--------+---------+ + + + | 11/21/ | Office | Cardiology | Yesi | | | 2019 | Visit | | JOSE ALBERTO Linder [address] | | | | | | [place] | | | | | | [place] [address] | | | | | | [phone] | | | | | | | [...]
--- OUTSIDE RECORDS SUMMARY | ~2019-04-12 | XMS | Encounter Summary ---
Demographics + + + | Address | [address] | | | [place] [address] | + + + | Home Phone [...] + | Author | [facility] | | | and Ohana | + + + | Organization | [facility] | [...] [place] | | | | | [place] [address] | | + + + + + | Hunter [place] | ECON | [place] | | + + + + + | Wes [place] | ECON | [place], [place] | | + + + + + | Oziel [place] | ECON | [place], [place] | | + + + + + Care Team Providers + +------+ + | Care Instruction Assistant Principal Name | Role | Phone | + [...] + + | 09/17/ | Telephone | [facility] | Ulysses Jensen, | Other | | 2016 | | ORTHOPEDIC SURGERY | [address] [facility] | | | | | [address] [facility] | [place] [address] | | | | | [place] | [address] | | | | | [address] | | | | | | [phone] | | | +--------+ + + + [...] | | | | | | [place] [address] | | | | | | [phone] | | | | | | | | +--------+---------+ + + + documented as of this encounter Visit Diagnoses Not on filedocumented in this encounter"
--- OUTSIDE RECORDS SUMMARY | ~2019-04-12 | XMS | Encounter Summary ---
Demographics + + + | Address | [address] | | | [place] [address] | + + + | Home Phone [...] | Author | [facility] | | | and Ohana | + + + | Organization | [facility] | | [...] | | | | | [place] [address] | | + + + + + | Hunter [place] | ECON | [place] | | + + + + + | Wes [place] | ECON | [place], [place] | | + + + + + | Oziel [place] | ECON | [place], [place] | | + + + + + Care Team Providers + +------+ + | Care Hide Mill Worker Name | Role | Phone [...] | [address] | | | | | [address] | | | | | | [phone] | | | +--------+--------+ + + + [...] | | | | | | [place] [address] | | | | | | [phone] | | | | | | | | +--------+---------+ + + + documented as of this encounter Visit Diagnoses Not on filedocumented in this encounter"
--- OUTSIDE RECORDS SUMMARY | ~2019-04-12 | XMS | Encounter Summary ---
Demographics + + + | Address | [address] | | | [place] [address] | + + + | Home Phone [...] + | Author | [facility] | | | and Ohana | + + + | Organization | [facility] | [...] [place] | | | | | [place] [address] | | + + + + + | Hunter [place] | ECON | [place] | | + + + + + | Wes [place] | ECON | [place], [place] | | + + + + + | Oziel [place] | ECON | [place], [place] | | + + + + + Care Team Providers + +------+ + | Care Cloud Automation Tester Name | Role | Phone | + [...] | CARDIOLOGY [address] | MD [address] [place] | | | | | [place], | [place], | | | | | [place] [address] | [place] [address] | | | | | [phone] | [phone] | | | | | | | [...] STREETER | | | | | | [address] | | | | | | | | +--------+---------+ + + + | 11/21/ | Office | Cardiology | Yesi, | | | 2019 | Visit | | JOSE ALBERTO Linder [address] | | | | | | [place] | | | | | | [place] [address] | | | | | | [phone] | | | | | | | | +--------+---------+ + + + documented as of this encounter Visit Diagnoses Not on filedocumented in this encounter"
--- OUTSIDE RECORDS SUMMARY | ~2019-04-12 | XMS | Encounter Summary ---
Demographics + + + | Address | [address] | | | [place] [address] | + + + | Home Phone [...] + | Author | [facility] | | | and Ohana | + + + | Organization | [facility] | [...] | | | | | [place] [address] | | + + + + + | Hunter [place] | ECON | [place] | | + + + + + | Wes [place] | ECON | [place], [place] | | + + + + + | Oziel [place] | ECON | [place], [place] | | + + + + + Care Team Providers + +------+ + | Care Machine Designer Name | Role | Phone | [...] + | 05/19/ | Office | [facility] | Rodolfo Cruz, | Asthma (Primary Dx); | | 2015 | Visit | MEDICINE [address] [place] [address] | MD [address] | Anemia; Essential | | | | Street [place] | [place] [facility], [place] | hypertension; | | | | [place] [address] | [address] | Hyperlipidemia; | | | | [phone] | | Bilateral thoracic | | | [...] our last visit, seen at ER in [place]. 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
--- OUTSIDE RECORDS SUMMARY | ~2019-04-12 | XMS | Encounter Summary ---
Demographics + + + | Address | [address] | | | [place] [address] | + + + | Home Phone [...] | Author | [facility] | | | and Ohana | + + + | Organization | [facility] | | | [...] [place] | | | | | [place] [address] | | + + + + + | Hunter [place] | ECON | [place] | | + + + + + | Wes [place] | ECON | [place], [place] | | + + + + + | Oziel [place] | ECON | [place], [place] | | + + + + + Care Team Providers + +------+ + | Care Automated Cutting Machine Operator Name | Role | Phone [...] Medicine | Sleep | Braulio Daniel | [place] [address] | | | Required | | apnea, | MD [address] | [place] | | | | | unspecified | [place] | [place], | | | | | Paradoxical | [facility] | [place] [address] | | | | | insomnia | [place], [place] | Phone: | | | | | Procedures | [address] | [phone] | | | | | MD POLYSOM | Phone: | Fax: | | | | | 6/>YRS SLEEP | [phone] | [phone] | | | | | 4/> ADDL | Fax: | | | | | | JACQUELYN ATTND | [phone] | | | | | | MD POLYSOM | | | | | | [...] + | 07/22/ | Office | [facility] | Braulio Lenó | 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 [address] | MD [address] | (Primary Dx); Sleep | | | | [address] [place] | [address] [place] | disorder due to a | | | | [place] [address] | [place] [address] | general medical | | | | [phone] | [phone] | condition, insomnia | | | | [...] STREETER | | | | | | [address] | | | | | | | | +--------+---------+ + + + | 11/21/ | Office | Cardiology | Yesi, | | | 2019 | Visit | | JOSE ALBERTO Linder [address] | | | | | | [place] | | | | | | [place] [address] | | | | | | [phone] | | | | | | | | +--------+---------+ + + + + + +--------+ + + | Name | Type | Priori | Associated Diagnoses | Order Schedule | | | | ty | | | + + +--------+ + + | * [facility] - | Outpatient | Routin [...]
--- OUTSIDE RECORDS SUMMARY | ~2019-04-12 | XMS | Encounter Summary ---
Demographics + + + | Address | [address] | | | [place] [address] | + + + | Home Phone [...] | [facility] | | | and Ohana | + + + | Organization | [facility] [...] [place] | | | | | [place] [address] | | + + + + + | Hunter [place] | ECON | [place] | | + + + + + | Wes [place] | ECON | [place], [place] | | + + + + + | Oziel [place] | ECON | [place], [place] | | + + + + + Care Team Providers + +------+ + | Care Philosophy Lecturer Name | Role | Phone | + [...] | [address] | [place] [address] | [address] Phone: | | | | | Procedures | Phone: | [phone] | | | | | NEW PATIENT | [phone] | Fax: | | | | | | Fax: | [phone] | | | | | | [phone] | | +--------+--------+ + + + + Encounter Details +--------+---------+ + + + | Date | Type | Department | Care Team | Description | +--------+---------+ + + + | 06/13/ | Office | [facility] | Braulio León | Psychophysiologic | | 2018 | Visit | SLEEP DISORDER [address] | MD [address] | insomnia | | | | [address] [place] | [facility] | | | | | [place] [address] | [place] [address] | | | | | [phone] | [phone] | | | | | | | [...] differen t from the original. [facility] [place] [address] Ref: Kellie Gunderson PA CC: Chief Complaint [...] f peptic ulcer disease. The patient's records ([facility] EMR and Mary Beth Gunderson's note of [...] low back pain (08/24/2014); Cl otting disorder ([facility]) (2013); COPD (chronic obstructive pulmonary disease) ([facility]); DDD (degen erative disc disease), cervical (07/25/2016); DDD (degenerative disc disease), lumbar ( 015); DJD (degenerative joint disease) (07/08/2013); Encounter for blood transfusion (November 28); Environmental allergies; Essential hypertension; Facet arthritis of lumbar region ([facility]) (08/24/2014); Foraminal stenosis of cervical region (07/25/2016); Fracture of foot (approx 29 01); GERD (04/17/2010); Heart murmur; Hep B complicating ; Hepatitis A (1967); Herpe s zoster (05/03/2011); High cholesterol; Hyperplastic colon polyp (03/28/10); Hypertension; Hypothyroidism; Lactose intolerance; Miscarriage; Mononucleosis; Osteoporosis; PUD (peptic u lcer disease) (11/08/2013); Pulmonary nodules (12/08/2013); Spondylosis, cervical (08/30/2010); Stenosis of cervical spine (07/25/2016); Stroke ([facility]) (Apr 2010); TIA (05/08/2010); Tinea co rporis (01/31/2015); UGIB (upper gastrointestinal bleed) (11/14/2013); Valvular heart disease ( 05/23/2010); and Vertigo (09/03/2012). has a past surgical history that includes Colonoscopy (05/2002; 03/28/10); Removal lower l eft nodules (2004); Foot fracture surgery (Left, 2004); Tonsillectomy and adenoidectomy (195 6); Upper gastrointestinal endoscopy (11/15/2013); Upper gastrointestinal endoscopy (11/04/2013 ); Hemorrhoid surgery (8018-5516); Thyroidectomy; Cardiac catheterization (N/A, 10/16/2016); a nd [...] CV LHC; Surgeon: Irina Simms MD; Location: [facility] CV LAB COLONOSCOPY 05/2002; 03/28/10 next due 03/2020 CORONARY ARTERY BYPASS GRAFT N/A 11/01/2016 Procedure: CABG X 4-5, EVH, AHMET; Surgeon: Christina Loo MD; Location: [facility] MAIN OR FOOT FRACTURE SURGERY Left 2005 HEMORRHOID SURGERY 7657-8882 Removal lower left nodules 2004 THYROIDECTOMY TONSILLECTOMY AND ADENOIDECTOMY 1955 UPPER GASTROINTESTINAL ENDOSCOPY 11/15/2013 EGD * IP RM: 428 * ; Laterality: N/A; Surgeon: Lauri Garrison MD; Location: [facility] MEDICAL PROCEDURE UNIT UPPER GASTROINTESTINAL ENDOSCOPY 11/04/2013 EGD IP 449; Laterality: N/A; Surgeon: Samm Pandya MD; Location: [facility] MEDICAL P ROCEDURE UNIT Family Medical [...] during the day Living situation:Alone Born in [facility] since 1965 Marital status: Children: 6, 5 living, 10 grandchildren 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 and a [...] Review: The score of 1 on the [place] Sleepiness scale suggests minimal brian gnized excessive [...] cervical Cervical radiculopathy 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
--- OUTSIDE RECORDS SUMMARY | ~2019-04-12 | XMS | Encounter Summary ---
Demographics + + + | Address | [address] | | | [place] [address] | + + + | Home Phone [...] | Author | [facility] | | | and Ohana | + + + | Organization | [facility] | [...] | | | | | [place] [address] | | + + + + + | Hunter [place] | ECON | [place] | | + + + + + | Wes [place] | ECON | [place], [place] | | + + + + + | Oziel [place] | ECON | [place], [place] | | + + + + + Care Team Providers + +------+ + | Care Pattern Maker Programer Name | Role | Phone | + +------+ + | Rodolfo Cruz MD | PCP | | + +------+ + Encounter Details +--------+ + + + + | Date | Type | Department | Care Team | Description | +--------+ + + + + | 09/03/ | Hospital | [facility] | Rodolfo Cruz, | Hypertension | | 2012 | Encounter | MED CTR LABORATORY | MD Raya RASHID | | | | | [address] [place] | [place] [address] | | | | | [place] | [address] | | | | | [address] | | | | | | [phone] | | | +--------+ + + + [...] | | | | | | [place] [address] | | | | | | [phone] | | | | | | | [...] - 1.030 | [facility] | | | [place] | | | [facility] | | [...] + | [facility] | [address] | [place] | [phone] | | [facility] | | [address] | | | - LABORATORY | | | | + + + + + | [facility] | [address] | [place] | | | [facility] | | [address] | | | - LABORATORY | | [...] + | [facility] | [address] | [place], [place] | [phone] | | [facility] | | [address] | | | - LABORATORY | | | | + + + + + | [facility] | [address] | [place] | | | [facility] | | [address] | | | - LABORATORY | | [...] | | | | mg/dL | [facility] | | | | [...] [address] | [place] | [phone] | | [facility] | | [address] | | | - LABORATORY | | | | + + + + + | [facility] | [address] | [place] | | | [facility] | | [address] | | | - LABORATORY | | [...] (H) | 7 - 18 mg/dL | [facility] | | | | | | [facility] | | | | | | MEDICAL | | | | | | CENTER - | | | | | | LABORATORY | | + + + + + + | Creatinine | 0.91 | 0.60 - 1.30 | [facility] | | | | | mg/dL | [...] + | [facility] | [address] | [place] | [phone] | | [facility] | | [address] | | | - LABORATORY | | | | + + + + + | [facility] | [address] | [place] | | | [facility] | | [address] | | | - LABORATORY | | [...] | + + + + + | [facility] | [address] | [place] | [phone] | | [facility] | | [address] | | | - LABORATORY | | | | + + + + + | [facility] | [address] | [place], [place] | | | [facility] | | [address] | | | - LABORATORY | | [...] - 1.030 | [facility] | | | [place] | | | [facility] | | [...] [address] | [place] | [phone] | | [facility] | | [address] | | | - LABORATORY | | | | + + + + + | [facility] | [address] | [place] | | | [facility] | | [address] | | | - LABORATORY | | | | + + + + + documented in this encounter Visit Diagnoses + + | Diagnosis | + + | Hypertension Unspecified essential hypertension | + + documented in this encounter"
--- OUTSIDE RECORDS SUMMARY | ~2019-04-12 | XMS | Encounter Summary ---
Demographics + + + | Address | [address] | | | [place] [address] | + + + | Home Phone [...] | Author | [facility] | | | and Ohana | + + + | Organization | [facility] [...] | | | | | [place] [address] | | + + + + + | Hunter [place] | ECON | [place] | | + + + + + | Wes [place] | ECON | [place], [place] | | + + + + + | Oziel [place] | ECON | [place], [place] | | + + + + + Care Team Providers + +------+ + | Care Gravel Weigher Name | Role | Phone | [...] Description | +--------+--------+ + + + | 04/24/ | Refill | [facility] | Rodolfo Cruz, | Medication Refill | | 2012 | | MEDICINE [place] | [address] | | | | | [address] | [place] [address] | | | | | [place] | [address] | | | | | [address] | | | | | | [phone] | | | +--------+--------+ + + + [...] | | | | | | [place] [address] | | | | | | [phone] | | | | | | | | +--------+---------+ + + + documented as of this encounter Visit Diagnoses Not on filedocumented in this encounter"
--- OUTSIDE RECORDS SUMMARY | ~2019-04-12 | XMS | Encounter Summary ---
Demographics + + + | Address | [address] | | | [place] [address] | + + + | Home Phone [...] | | | | | [place] [address] | | + + + + + | Hunter [place] | ECON | [place] | | + + + + + | Wes [place] | ECON | [place], [place] | | + + + + + | Oziel [place] | ECON | [place], [place] | | + + + + + Care Team Providers + +------+ + | Care Injection Operator Name | Role | Phone | [...] | 07/26/ | Refill | [facility] | Rodolfo Cruz, | Medication Refill | | 2016 | | MEDICINE [address] | [address] | | | | | [place] | [place] [address] | | | | | [place] [address] | [address] | | | | | [phone] | | | +--------+--------+ + + + [...] | | | | | | [place] [address] | | | | | | [phone] | | | | | | | | +--------+---------+ + + + documented as of this encounter Visit Diagnoses + + | Diagnosis | + + | Pain Generalized pain | + + documented in this encounter"
--- OUTSIDE RECORDS SUMMARY | ~2019-04-12 | XMS | Encounter Summary ---
Demographics + + + | Address | [address] | | | [place] [address] | + + + | Home Phone [...] | Author | [facility] | | | and Ohana | + + + | Organization | [facility] | | | [...] | | | | | [place] [address] | | + + + + + | Hunter [place] | ECON | [place] | | + + + + + | Wes [place] | ECON | [place], [place] | | + + + + + | Oziel [place] | ECON | [place], [place] | | + + + + + Care Team Providers + +------+ + | Care Floor Helper Name | Role | Phone | [...] | 02/14/ | Refill | [facility] [facility] | Rodolfo Cruz, | Medication Refill | | 2016 | | MEDICINE [address] | [address] | | | | | [place] | [place] [address] | | | | | [place] [address] | [address] | | | | | [phone] | | | +--------+--------+ + + + [...] | | | | | | [place] [address] | | | | | | [phone] | | | | | | | | +--------+---------+ + + + documented as of this encounter Visit Diagnoses Not on filedocumented in this encounter"
--- OUTSIDE RECORDS SUMMARY | ~2019-04-12 | XMS | Encounter Summary ---
Demographics + + + | Address | [address] | | | [place] [address] | + + + | Home Phone [...] | Author | [facility] | | | and Ohana | + + + | Organization | [facility] | | [...] | | | | | [place] [address] | | + + + + + | Hunter [place] | ECON | [place] | | + + + + + | Wes [place] | ECON | [place], [place] | | + + + + + | Oziel [place] | ECON | [place], [place] | | + + + + + Care Team Providers + +------+ + | Care Research Associate Quality Control Qc Name | Role | Phone | + +------+ + | Rodolfo Cruz MD | PCP | | + +------+ + Encounter Details +--------+ + + + + | Date | Type | Department | Care Team | Description | +--------+ + + + + | 11/02/ | Orders Only | [facility] | Buffy Cormier, | Other specified | | 2014 | | MEDICINE Danny Hinson | CB | facundo | | | | [address] | | (Primary Dx) | | | | [place] [address] | | | | | | [phone] | | | +--------+ + + + [...] [address] | | | | | | [place], | | | | | | [place] [address] | | | | | | [phone] | | | | | | | [...] [address] | [place] | [phone] | | [facility] | | [address] | | | - LABORATORY | | | | + + + + + documented in this encounter Visit Diagnoses + + | Diagnosis | + + | Other specified hypothyroidism - Primary | + + documented in this encounter"
--- OUTSIDE RECORDS SUMMARY | ~2019-04-12 | XMS | Encounter Summary ---
Demographics + + + | Address | [address] | | | [place] [address] | + + + | Home Phone [...] [facility] | | | and Ohana | + + + | Organization | [facility] | | | and [place] | + + + | Address | Unknown | + + + | Phone | Unavailable | + + + Support + + + + + | Name | Relationship | Address | Phone | + + + + + | Osmin [place] | ECON | [address] | | | | | [place] [address] | | + + + + + | Hunter [place] | ECON | [place] | | + + + + + | Wes [place] | ECON | [place], [place] | | + + + + + | Oziel [place] | ECON | [place], [place] | | + + + + + Care Team Providers + +------+ + | Care Cook Fish Eggs Name | Role | Phone | + [...] [place], | | | | | | [address] | [place] [address] | | | | | | Phone: | Phone: | | | | | | [phone] | [phone] | | | | | | Fax: | Fax: | | | | | | [phone] | [phone] | +--------+ + + + + + Reason for Visit + + + | Reason | Comments | + + + | Follow-up | | + + + Encounter Details +--------+---------+ + + + | Date | Type | Department | Care Team | Description | +--------+---------+ + + + | 02/17/ | Office | [facility] | Rodolfo Cruz, | Vertigo (Primary Dx) | | 2011 | Visit | MEDICINE [place] | [address] | | | | | [address] | [place] [address] | | | | | [place] | [address] | | | | | [address] | | | | | | [phone] | | | +--------+---------+ + + + [...] three weeks. [facility] and [facility] for this. She has [...] vomiting, diarrhea, constipation and abdominal diste ntion. [place] pain, black or bloody stools, excessive gas [...] STREETER | | | | | | [id number] | | | | | | | | +--------+---------+ + + + | 11/21/ | Office | Cardiology | Yesi, | | | 2019 | Visit | | JOSE ALBERTO Linder [address] | | | | | | [place], | | | | | | [place] [address] | | | | | | [phone] | | | | | | | [...]
--- OUTSIDE RECORDS SUMMARY | ~2019-04-12 | XMS | Encounter Summary ---
Demographics + + + | Address | [address] | | | [place] [address] | + + + | Home Phone [...] Author | [facility] | | | and [place]ana | + + + | Organization | [facility] | | [...] | | | | | [place] [address] | | + + + + + | Gisele Jackson | ECON | [place], [place] | | + + + + + | Wes Jackson | ECON | [place], [place] | | + + + + + | Oziel Jackson | ECON | [place], [place] | | + + + + + Care Team Providers + +------+ + | Care Pump Operator Name | Role | Phone | [...] | | | | | midline | [facility] | | | | | thoracic | PA-C [address] | | | | | back pain | [address] | [address]VE | | | | | Spondylosis | [place] | [place], [place] | | | | | of cervical | [address] | [address] | | | | | region | Phone: | Phone: | | | | | without | [phone] | [phone] | | | | | myelopathy | Fax: | Fax: | | | | | or | [phone] | [phone] | | | | | radiculopath | [...] | | | | | midline | [facility] | | | | | thoracic | PA-C [address] | | | | | back pain | [address] | AVE | | | | | Spondylosis | [place] | [place] | | | | | of cervical | [address] | [address] | | | | | region | Phone: | Phone: | | | | | without | [phone] | [phone] | | | | | myelopathy | Fax: | Fax: | | | | | or | [phone] | [phone] | | | | | radiculopath | [...] | | Required | | midline | [facility] | | | | | thoracic | PA-C [address] | [address] | | | | | back pain | [address] | AVE | | | | | Spondylosis | [place] | [place] | | | | | of cervical | [address] | [address] | | | | | region | Phone: | Phone: | | | | | without | [phone] | [phone] | | | | | myelopathy | Fax: | Fax: | | | | | or | [phone] | [phone] | | | | | radiculopath | [...] | | back pain | [place], | [address] Phone: | | | | | | [place] [address] | [phone] | | | | | | Phone: | Fax: | | | | | | [phone] | [phone] | | | | | | Fax: | | | | | | | [phone] | | +--------+--------+ + + + + [...] thoracic back pain | | | | [place], | [address], | (Primary Dx); | | | | [place] [address] | [place] [address] | Spondylosis of | | | | [phone] | [phone] | cervical region | | | | [...] 2) Try Lidocaine patch, can get from [employer] or [facility] 3) Massage therapy/physical therapy at [facility] 4) I will call you with image [...] o n the RaNITidine HCl (RANITIDINE ACID ASSISTANT MANAGER QUALITY MANAGEMENT PO) Take 1 tablet by mouth Daily. [...] has no apparent deficits with short or ferry terminal agent memory. She has appropriate fund of knowledge [...] LORDOSIS WITH MULTILEVEL DEGENERATIVE DISC DISEASE AND [place] LD RETROLISTHESIS WHICH IS SIMILAR TO MRI [...] STREETER | | | | | | [id number] | | | | | | | | +--------+---------+ + + + | 11/21/ | Office | Cardiology | [place], | | | 2020 | Visit | | JOSE ALBERTO Linder [address] | | | | | | [place], | | | | | | [place] [address] | | | | | | [phone] | | | | | | | [...]
--- OUTSIDE RECORDS SUMMARY | ~2019-04-12 | XMS | Encounter Summary ---
Demographics + + + | Address | [address] | | | [place] [address] | + + + | Home Phone [...] | [facility] | | | and [place] | + + + | Organization | [facility] | [...] | | | | | [place] [address] | | + + + + + | Hunter Jackson | ECON | [place], [place] | | + + + + + | Wes Jackson | ECON | [place], [place] | | + + + + + | Oziel Jackson | ECON | [place], [place] | | + + + + + Care Team Providers + +------+ + | Care Emergency Room Technician Name | Role | Phone | [...] 07/08/ | Telephone | [facility] [place] | [place], | Chest Pain | | 2016 | | CARDIOLOGY [address] | JOSE ALBERTO Linder [address] | | | | | [place], | [place], | | | | | [place] [address] | [place] [address] | | | | | [phone] | [phone] | | | | | | | [...] STREETER | | | | | | 530422 | | | | | | | | +--------+---------+ + + + | 11/21/ | Office | Cardiology | Yesi | | | 2019 | Visit | | JOSE ALBERTO Linder [address] | | | | | | [place] | | | | | | [place] [address] | | | | | | [phone] | | | | | | | | +--------+---------+ + + + documented as of this encounter Visit Diagnoses Not on filedocumented in this encounter"
--- OUTSIDE RECORDS SUMMARY | ~2019-04-12 | XMS | Encounter Summary ---
Demographics + + + | Address | [address] | | | [place] [address] | + + + | Home Phone [...] Author | [facility] | | | and Ohana | + + + | Organization | [facility] [...] [place] | | | | | [place] [address] | | + + + + + | Hunter Jackson | ECON | [place] | | + + + + + | Wes Jackson | ECON | [place], [place] | | + + + + + | Oziel Jackson | ECON | [place], [place] | | + + + + + Care Team Providers + +------+ + | Care Shoe Packer Name | Role | Phone | [...] | | | atherosclero | | [address] | | | | | sis of | | [place], | | | | | unspecified | | [place] [address] | | | | | type of | | Phone: | | | | | vessel, | | [phone] | | | | | robinson or | | Fax: | | | | | graft | | [phone] | | | | | Coronary | | | | | | | atherosclero | | | | | | | sis of | | | | | | | unspecified | | | | | | | type of | | | | | | | vessel, | | | | | | | robinson or | | | | | | | graft | | | | | | | Procedures | | | | | | | VT ENDOSCOPY | | | | | | | | | | | | | | W/VIDEO-ASST | | | | | | | VEIN | | | | | | | HARVEST,CABG | | | | | | | VT CABG, | | | | | | | ARTERY-VEIN, | | | | | | | FOUR [place] | | | | | | [...] [facility] | MD Christina [address] [place] | | | | | OP [address] | [address] [place] | | | | | [place] | [id number] | | | | | [address] | | | | | | [phone] | | | +--------+---------+ + + + [...] might be different f rom the original. [facility] DISCHARGE SUMMARY PATIENT NAME: Jaclyn Jackson : 1935: AGE: 81 y.o. ADMISSION DATE: 11/01/2016 DISCHARGE DATE: 11/06/2016 PRIMARY CARE: FLORA Morgan Patient ID: Jaclyn Jackson [id number] 81 y.o. 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 Suhail Torrse [facility]: The patient proceeded to [...] at 11:00 am Contact information: [address] [facility] [address] Call Christina Loo MD. Specialty: Cardiothoracic Surgery Why: As needed, If symptoms worsen. Otherwise okay to follow up postop with Dr. Cevallos Contact information: [address] [place] [address] FLORA Morgan. Schedule an appointment as soon as possible for a visit in 2 weeks. Specialty: Physician Invoice Machine Operator Why: Primary care follow up after cardiac surgery Contact information: [address], [address] [place] [id number] If patient has any further questions or concerns prior to above, instructed to call our off ice. [phone]. Time spent on discharge planning: less than [...] Mario London PA-C 11/06/2016 13:12 Cardiothoracic Surgery [facility] [address] [place] [address] Portions of this chart may have been created with VEEDIMS voice recognition software. Occasi onal wrong-word or sound-alike substitutions may have occurred due to the inherent doe itations of voice recognition software. Please read the chart carefully and recognize, using context, where these substitutions have occurred. documented in this encounter Discharge Instructions Instructions Dominga Hernandez RN - 11/06/2016Formatting of this note might be different fro humphrey the original. [facility] [...] ed help. Don t lift anything heavier [id number] for 4-6 weeks. Until approved by your [...] the hospital, begin with short wal ks ([id number]) at home. Go a little longer each [...] symptoms you had prior to surgery Fever veism907.0F New or spreading redness, swelling, drainage, or warmth at the incision site New or worsening shortness of breath Fainting Weight gain of more bcws2hebnyc [id number] or more [id number] cz8thkp(s) New or increasedswelling in your hands, feet, [...] person(s) in the waiting room?: Mary Flores [phone] Patient Signature: Clinician/Asphalt Heater Operator Signature: documented in this encounter Medications at [...] patient and daughter. Prescriptions reviewed, pt to pickle pumper at [facility] pharmacy. Questions answered. Advised of follow up appointme nts and to schedule follow up with PCP. Pt given Mg citrate this am with multiple BM's. To s hower and change and DC home to [place] by car with daughter. Update: Pt showered, dressed. States that she has all belongings. WC transport placed to nm in doors. Daughter picked up meds at [...] PRIMARY HOSPITAL PROBLEM: Coronary artery disease involving robinson coronary artery of robinson heart with unstable miranda na pectoris (HCC) CHIEF COMPLAINT: CAD ASSESSMENT Anemia Assessment & Plan H/H stable Hyperlipidemia, mixed Assessment & Plan Continue statin * Coronary artery disease involving robinson coronary artery of robinson heart with unstable an nayeli pectoris (HCC) Assessment & Plan POD #6 Coronary artery bypass grafting x3 (VERDUZCO-LAD, rSVG-Diag, rSVG-RCA) LVEF 65% prostoperatively. PLAN OK to dc to home follow up in [place] SUBJECTIVE DATA SUBJECTIVE: tired after having BM [...] PA- C - 11/06/2016 9:10 AM PDT [facility] Progress Note Pt. Name/Age/: Jaclyn Jackson 81 y.o. 1935 Med. Record Number: [id number] Date of admission: 11/01/2016 Hospital Day: 6 [...] PLAN Principal Problem: Coronary artery disease involving robinson coronary artery of robinson heart with unstable an nayeli pectoris Active [...] Mario London PA-C 11/06/2016 9:10 Cardiothoracic Surgery [facility] [address] [place] [address] Portions of this chart may have been created with VEEDIMS voice recognition software. Occasi onal wrong-word or [...] PRIMARY HOSPITAL PROBLEM: Coronary artery disease involving robinson coronary artery of robinson heart with unstable miranda na pectoris (HCC) CHIEF COMPLAINT: Feeling well, no shortness of breath or chest pain ASSESSMENT Anemia Assessment & Plan H/H stable WBC trending down Oral Iron replacement? * Coronary artery disease involving robinson coronary artery of robinson heart with unstable an nayeli pectoris (HCC) [...] Portions of this chart were created with VEEDIMS voice recognition software. Occasional wro ng-word or [...] feels quite well Follow-up can be in [place] from the cardiac standpoint They will talk with the surgeon regarding surgical follow-up and if it can be done locally or they need to come here. Suhail Flannery MD [facility] 11/05/2016 16:36 During this hospital [...] might be differen t from the original. [facility] Daily Progress Note 11/05/2016 Pt. Name/Age/: Jaclyn Jackson 81 y.o. 1935 Med. Record Number: [id number] Date of admission: 11/01/2016 Hospital Day: 5 4 Days Post-Op LVEF: 60-70 Procedure: CABGx3 Date of Surgery: 11/01/16 Surgeon: Dr. Christina Loo MD. Anusha Flores PA-C assisting Interval Events Uneventful night. ASSESSMENT: POD# 4 S/P CABGx3 - Overall doing well, hemodynamics stable, needs BM, on min imal O2, plan home tomorrow to [place] with daughter in law. Neuro: --Hx TIA [...] Dispo: --Plan home with family tomorrow to [place] --Will need to f/u with [facility] in 1 month --Ok per cardiology to f/u with cards in [place] CURRENT PLAN Increase norvasc Change IV to [...] Earlene Bonilla PA-C 11/05/2016 7:30 Cardiothoracic Surgery [facility] [address] [place] [address] I have participated in the [...] PRIMARY HOSPITAL PROBLEM: Coronary artery disease involving robinson coronary artery of robinson heart with unstable miranda na pectoris (HCC) CHIEF COMPLAINT: Tired, incisional pain but no chest pain or shortness of breath ASSESSMENT Anemia Assessment & Plan H/H and stable WBC trending down * Coronary artery disease involving robinson coronary artery of robinson heart with unstable an nayeli pectoris (HCC) Assessment & Plan 11/01/2016: Coronary artery bypass grafting x3 (VERDUZCO-LAD, rSVG-Diag, rSVG-RCA) LVEF 65% pro stoperatively. -Continue Amlodipine, Aspirin, Statin, Metoprolol -ECG without acute changes PLAN Continue current medications Increase ambulation Follow up with Ecology Teacher in [place] SUBJECTIVE DATA REVIEW OF SYSTEMS: CV: negative [...] Portions of this chart were created with VEEDIMS voice recognition software. Occasional wro ng-word or [...] presentation. Followup: She wants her followup in [place] and that is fine by me. I am not sure if surgical fo llowup in [place] is acceptable. Suhail Flannery MD [facility] 11/04/2016 17:32 During this hospital [...] Jackson DATE OF : 1935 MED RECORD: [id number] Pre-OP Dx Coronary artery disease Hypertension Dyslipidemia history of transient ischemic attack Hypothyroidism mild aortic regurgitation and calcified mitral annulus with calcium nodule in posterior mitral leaflet. Procedure 11/01/16 1. Coronary artery bypass surgery times 3, VERDUZCO to LAD, saphenous vein graft to diagonal, saphenous vein graft to right coronary artery. 2. Endoscopic vein harvest, left greater saphenous vein. SURGEON: Christina Loo MD DIRECTOR ADVANCED: Anusha Flores PA-C SUBJECTIVE Sitting in chair. [...] 7.46 7.47 PO2ART 113* 118* 116* 156* RWM7OLU 44* 47* 33 35 U1RTCSUG 95.2 95.6 95.7 96.8 BEART -- -- [...] regarding this --home ~2d Serene Castillo PA-C [facility] 11/04/2016, 8:02 I have [...] low back pain 08/24/2014 Clotting disorder ([facility]) 2013 duodenal ulcer COPD (chronic obstructive pulmonary disease) ([facility]) DDD (degenerative disc disease), cervical 07/25/2016 DDD [...] Stenosis of cervical spine 07/25/2016 Stroke ([facility]) Apr 2010 TIA 05/08/2010 Tinea corporis 01/31/2015 UGIB (upper gastrointestinal bleed) 11/14/2013 Valvular heart disease 05/23/2010 Vertigo 09/03/2012 Past Surgical History: Procedure Laterality Date CARDIAC CATHERIZATION N/A 10/16/2016 Procedure: CV LHC; Surgeon: Irina Simms MD; Location: [facility] CV LAB COLONOSCOPY 05/2002; 03/28/10 next due 03/2020 FOOT FRACTURE SURGERY Left 2004 HEMORRHOID SURGERY [id number] Removal lower left nodules 2004 THYROIDECTOMY TONSILLECTOMY AND ADENOIDECTOMY 1955 UPPER GASTROINTESTINAL ENDOSCOPY 11/15/2013 EGD * IP RM: 428 * ; Laterality: N/A; Surgeon: Lauri Garrison MD; Location: [facility] MEDICAL PROCEDURE UNIT UPPER GASTROINTESTINAL ENDOSCOPY 11/04/2013 EGD IP 449; Laterality: N/A; Surgeon: Samm Pandya MD; Location: [facility] MEDICAL P ROCEDURE UNIT reports [...] Procedure Component Value Units Date/Time MRSA NAAT [[id number]] Collected: 10/31/16 1520 Order Status: Completed Lab Status: Final result Updated: 10/31/16 6921 Specimen: Respiratory from Nasal/Nose Specimen Source Nasal [...] Electronically signed by: Flor Lynch Diabetes team, [facility] [phone] Isaias Leyva ARNP - 11/03/2016 10:37 AM PDT PATIENT NAME: Jaclyn Jackson : 1935: AGE: 81 y.o. ADMISSION DATE: 11/01/2016 Hospital Day: Hospital Day: 3 Code Status: Full Code DATE OF SERVICE: 11/03/2016 JOSE ALBERTO [place] CARDIOLOGY DAILY PROGRESS NOTE PRIMARY HOSPITAL PROBLEM: Coronary artery disease involving robinson coronary artery of robinson heart with unstable miranda na pectoris (HCC) CHIEF COMPLAINT: Pain better controlled, walking the hallways ASSESSMENT Anemia Assessment & Plan No CBC from this AM, yesterday H/H 9.9/29.5 CBC in AM * Coronary artery disease involving robinson coronary artery of robinson heart with unstable an nayeli pectoris (HCC) Assessment & Plan 11/01/2016: Coronary artery bypass grafting x3 (VERDUZCO-LAD, rSVG-Diag, rSVG-RCA) LVEF 65% pro stoperatively. -Continue Amlodipine, Aspirin, statin, Metoprolol -ECG without acute changes PLAN Continue current medications Patient would like to follow up with cardiology in [place] SUBJECTIVE DATA REVIEW OF SYSTEMS: CV: negative [...] Portions of this chart were created with VEEDIMS voice recognition software. Occasional wro ng-word or [...] halls without problems She has an established certified scrum master in [place] up with her. Suhail Flannery MD [facility] 11/03/2016 15:57 During this hospital [...] MD - 11/03/2016 8:58 AM P DT [facility] HEART CARDIOTHORACIC SURGERY PROGRESS NOTE Pt. Name/Age/: Jaclyn Jackson 81 y.o. 1935 Med. 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 Making good progress. Mando Calles MD [facility], Suhail washington MD - 11/02/2016 11:21 AM PDT [facility]: PATIENT NAME: Jaclyn Jackson : 1935: AGE: 81 y.o. ADMISSION DATE: 11/01/2016 Admitting Provider: Christina Loo MD Primary Provider: FLORA Morgan Hospital Day: Hospital Day: 2 LOS: 1 Code Status: Full Code Ecology Teacher: Suhail Flannery MD [facility] DATE OF SERVICE: 11/02/2016 PRIMARY [...] op (11.7 prior). Coronary artery disease involving robinson coronary artery of robinson heart with unstable miranda na pectoris (HCC) [...] showing left jugular venous access an d Pollock-Michael catheter and to the area of segmental right lower lobe arteries. Total number o f images: 1. IMPRESSION: Fluoroscopic assisted right jugular venous access with Pollock-Michael c atheter. Signed by: Fredy Miranda Xr [...] note and vitals reviewed. Suhail Flannery MD [facility] 11/02/2016 11:21 eeves, Mando willis MD - 11/02/2016 7:46 AM PDT [facility] PROGRESS NOTE Pt. Name/Age/: Jaclyn aJckson 81 y.o. 1935 [facility]. Record Number: [id number] Date of admission: 11/01/2016 POD 1 Procedure: [...] -Levothyroxine 50 g daily Chronic pain -Takes [place] 7.5 and Voltaren ointment at home History [...] Electronically signed by: Amna Benavides PA-C Physician Invoice Machine Operator [facility] Cardiothoracic Surgery 11/02/2016 7:46 [facility] Addendum: Doing well though difficult night Agree with above Ready for transfer Mando Calles MD Lindsey Gonsalves RN - 11/02/2016 6:00 AM PDTUO dropped to 5/hr this hr. CVP 7-10. Albumin 250cc given.Mariza le signed by Lindsey Heart RN at 11/02/2016 [...] Sanchez LICSW - 11/01/2016 6:00 PM PDT Clinical Safety Manager: Pt resides in [place], [place]. She has Medicare coverage. Will follow progress post op and any other therapy recommendations for discharge planning. Semaj Keith - 11/01/2016 2:22 PM PDTPatie nt arrived to room 260, vitals stable. Sedated. Reported received. Amna Garcia PA-C - 11/01/2016 1:26 PM PDT [facility] Immediate Post-Operative Note Subjective Pt. Name/Age/: Jaclyn Jackson 81 y.o. 1935 Med. Record Number: [id number] Date of admission: 11/01/2016 Procedure: Coronary artery [...] Results Component Value Date PHART 7.47 11/01/2016 UQB3NML 36 11/01/2016 PO2ART 290 11/01/2016 Y6MTOCKRN 13.9 (L) 11/01/2016 ROV6GHZ 26.0 11/01/2016 BEART 2.6 (H) 11/01/2016 HGB [...] -Levothyroxine 50 g daily Chronic pain -Takes [place] 7.5 and Voltaren ointment at home History of TIA -no neuro deficits upon admission History of asthma -uses albuterol at home Electronically signed by: Amna Benavides PA-C 11/01/2016 13:26 Cardiothoracic Surgery [facility] [address] [place], [place] [address] Portions of this chart may have been created with VEEDIMS voice recognition software. Occasi onal wrong-word or [...] | | | | | | [place] [address] | | | | | | [phone] | | | | | | | [...] Occurrences starting | | | | | robinson coronary | 11/04/2016 until | | | | | artery of robinson | 11/04/2016 | | | | | [...] involving | | | | | | robinson coronary | | | | | | artery of robinson | | | | | | heart [...] | | | | | | vessel, robinson or | | | | | | [...] whether | | | | | | robinson or | | | | | | [...] whether | | | | | | robinson or | | | | | | [...] whether | | | | | | robinson or | | | | | | [...] whether | | | | | | robinson or | | | | | | [...] whether | | | | | | robinson or | | | | | | [...] whether | | | | | | robinson or | | | | | | [...] whether | | | | | | robinson or | | | | | | [...] + + | Glucose | 114 (H)Comment: Mauritanian | 65 - 99 mg/dL | [facility] [...] + + | OLEGARIO [facility] | [address] | [place] [address] | | | [facility] | | | | | LABORATORY [...] MIRANDA | [address] | [place], [place] [address] | | | [facility] | [...] + | [facility] | [address] | [place] [address] | | | [facility] | | | | | LABORATORY [...] + | OLEGARIO [facility]CRED | [address] | [place] [address] | | | [facility] | | | | | [...] + + | OLEGARIO MIRANDA | [address] | [place] [address] | | | [facility] | | | | | LABORATORY [...] + + | Glucose | 115 (H)Comment: Mauritanian | 65 - 99 mg/dL | [place] | | | | Diabetes Association | [...] + | [facility] | [address] | [place] [address] | | | [facility] | | | | | LABORATORY [...] | [address] | [place] [address] | | | [facility] | | | | | [...] + | MARAHLIBERTADGabriel MIRANDA | [address] | [place] [address] | | | [facility] | | | | | LABORATORY [...] + | [facility] | [address] | [place] [address] | | | [facility] | [...] SACRED | [address] | [place] [address] | | | [facility] | | | | | [...] + + | OLEGARIO MIRANDA | [address] | [place] [address] | | | [facility] | | | | | LABORATORY [...] | TRACEMASTER | | Duration:140 msP Horizontal Abernathy:-43 degP Front Abernathy:60 degQ Onset:514 | | | msQRSD Interval:78 msQT Interval:384 msQTcB:426 msQTcF:412 msQRS | | | Horizontal Abernathy:3 degQRS Abernathy:21 degI-40 Horizontal Abernathy:-8 degI-40 | | | Front Abernathy:15 degT-40 Horizontal Abernathy:-6 degT-40 Front Abernathy:22 degT | | | Horizontal Abernathy:44 degT Wave Abernathy:12 degS-T Horizontal Abernathy:42 degS-T | | | Front Abernathy:22 degSeverity:- BORDERLINE ECG -INTERP:SINUS | | | RHYTHMINTERP:PROBABLE LEFT ATRIAL ABNORMALITYElectronically signed by: | | | PATRICK BURKETT 11-09-2016 13:17:14 | | |QTcB:426 ms | | |QTcF:412 ms | | |QRS Horizontal Abernathy:3 deg | | |QRS Abernathy:21 deg | | |I-40 Horizontal Abernathy:-8 deg | | |I-40 Front Abernathy:15 deg | | |T-40 Horizontal Abernathy:-6 deg | | |T-40 Front Abernathy:22 deg | | |T Horizontal Abernathy:44 deg | | |T Wave Abernathy:12 deg | | |S-T Horizontal Abernathy:42 deg | | |S-T Front Abernathy:22 deg | | |Severity:- BORDERLINE ECG - | | |INTERP:SINUS RHYTHM | | |INTERP:PROBABLE LEFT ATRIAL ABNORMALITY | | |Electronically signed by: PATRICK BURKETT 11-09-2016 13:17:14 | | + + + + + + + + | Performing | Address | City/State/Zipcode | Phone Number | | Organization | | | | + + + + + | ROSEANN CORREA | [address] | [place] [address] | [phone] | + + + + + POC [...] + + | OLEGARIO MIRANDA | [address] | [place] [address] | | | [facility] | | | | | [...] + | [facility] | [address] | [place] [address] | | | [facility] | | | | | LABORATORY [...] | [address] | [place] [address] | | | [facility] | | | | | [...] + | MARAHLIBERTADGabriel MIRANDA | [address] | [place] [address] | | | [facility] | | | | | LABORATORY [...] + | [facility] | [address] | [place] [address] | | | [facility] | [...] SACRED | [address] | [place] [address] | | | [facility] | | | | | [...] SACRED | [address] | [place] [address] | | | [facility] | | | | | LABORATORY [...] + + | OLEGARIO MIRANDA | [address] | [place] [address] | | | [facility] | | | | | [...] + | [facility] | [address] | [place] [address] | | | [facility] | | | | | LABORATORY [...] + + | MARAHLIBERTADGabriel GRACEDRU | [address] | [place] [address] | | | [facility] | | | | | LABORATORY [...] + + | Glucose | 131 (H)Comment: Mauritanian | 65 - 99 mg/dL | [facility] [...] + + | OLEGARIO [facility]CRED | [address] | [place] [address] | | | [facility] | | | | | LABORATORY [...] + + | OLEGARIO MIRANDA | [address] | [place] [address] | | | [facility] | | | | | LABORATORY [...] + + | OLEGARIO MIRANDA | [address] | [place] [address] | | | [facility] | | | | | LABORATORY [...] [address] | [place] [address] | | | [facility] | | | | | [...] [address] | [place] [address] | | | [facility] | | | | | [...] + | MARAHLIBERTADGabriel MIRANDA | [address] | [place] [address] | | | [facility] | | | | | LABORATORY [...] + + | OLEGARIO MIRANDA | [address] | [place] [address] | | | [facility] | | | | | [...] SACRED | [address] | [place] [address] | | | [facility] | | | | | LABORATORY [...] + | OLEGARIO SACRDRU | [address] | [place] [address] | | | [facility] | | | | | LABORATORY [...] + + | OLEGARIO MIRANDA | [address] | [place] [address] | | | [facility] | | | | | [...] + + + + + | OLEGARIO MIRNADA | [address] | [place] [address] | | | [facility] | | | | | [...] + + | OLEGARIO MIRANDA | [address] | [place] [address] | | | [facility] | | | | | LABORATORY [...] | [address] | [place] [address] | | | [facility] | [...] Patient | | | Name: JACLYN JACKSON: [id number] | | | Study Date: 11/01/2016DOB: 1935 | | | Gender: FemaleAge: 81 yrs | | | Location: [facility] | | | Study: intraop [...] central AI, no , trace TR, trace [place].5. Normal aorta other than mild | | [...] |Ordering Physician: Christina Loo MD | | |Measurement Psychologist: Fredy Almaguer MD | | | | | + + + + + | Procedure Note | + + | Remington, Rad Results In - 11/01/2016 2:28 PM PDT | | Adult Intra-Op | | ORA Report | | | | Patient Name: JACLYN JACKSON | | Study Date: 11/01/2016 | | : 1935 Gender: Female | | Age: 81 yrs Location: [facility] P | | OOL | [...] central AI, no , trace TR, trace [place]. | | 5. Normal aorta other than [...] Ordering Physician: Christina Loo MD | | Measurement Psychologist: Fredy Almaguer MD | + + Potassium [...] + + | OLEGARIO MIRANDA | [address] | [place] [address] | | | [facility] | | | | | LABORATORY [...] + | [facility] | [address] | [place] [address] | | | [facility] | | | | | LABORATORY [...] + + | OLEGARIO MIRANDA | [address] | [place] [address] | | | [facility] | | | | | [...] + | [facility] [facility] | [address] | [place] [address] | | | [facility] | [...] + + | OLEGARIO MIRANDA | [address] | [place] [address] | | | [facility] | | | | | LABORATORY [...] + | OLEGARIO [facility] | [address] | [place] [address] | | | [facility] | [...] % | [facility] | | | | [id number] | | [facility] | | | | [...] + + | OLEGARIO MIRANDA | [address] | [place] [address] | | | [facility] | | | | | LABORATORY [...] | TRACEMASTER | | Duration:148 msP Horizontal Abernathy:6 degP Front Abernathy:72 degQ Onset:512 | | | msQRSD Interval:80 msQT Interval:452 msQTcB:463 msQTcF:459 msQRS | | | Horizontal Abernathy:16 degQRS Abernathy:56 degI-40 Horizontal Abernathy:49 degI-40 | | | Front Abernathy:45 degT-40 Horizontal Abernathy:-8 degT-40 Front Abernathy:59 degT | | | Horizontal Abernathy:66 degT Wave Abernathy:64 degS-T Horizontal Abernathy:66 degS-T | | | Front Abernathy:38 degSeverity:- NORMAL ECG -INTERP:SINUS | | | RHYTHMElectronically signed by: Ramin PEREZ 11-01-2016 16:20:01 | | |QT Interval:452 ms | | |QTcB:463 ms | | |QTcF:459 ms | | |QRS Horizontal Abernathy:16 deg | | |QRS Abernathy:56 deg | | |I-40 Horizontal Abernathy:49 deg | | |I-40 Front Abernathy:45 deg | | |T-40 Horizontal Abernathy:-8 deg | | |T-40 Front Abernathy:59 deg | | |T Horizontal Abernathy:66 deg | | |T Wave Abernathy:64 deg | | |S-T Horizontal Abernathy:66 deg | | |S-T Front Abernathy:38 deg | | |Severity:- NORMAL ECG - | | |INTERP:SINUS RHYTHM | | |Electronically signed by: Ramin PEREZ 11-01-2016 16:20:01 | | + + + + + + + + | Performing | Address | City/State/Zipcode | Phone Number | | Organization | | | | + + + + + | [facility] | [address] | [place] [address] | [phone] | + + + + + XR [...] + + | OLEGARIO SACRDRU | [address] | [place] [address] | | | [facility] | | | | | [...] + + | [facility] | [address] | [place] [address] | | | [facility] | [...] + + | OLEGARIO MIRANDA | [address] | [place] [address] | | | [facility] | | | | | LABORATORY [...] + + | [facility] | [address] | [place] [address] | | | [facility] | [...] [address] | [place] [address] | | | [facility] | [...] + + | OLEGARIO SACRED | [address] | [place] [address] | | | [facility] | [...] + + | OLEGARIO MIRANDA | [address] | [place] [address] | | | [facility] | | | | | LABORATORY [...] + | [facility] | [address] | [place] [address] | | | [facility] | [...] + + | OLEGARIO MIRANDA | [address] | [place] [address] | | | [facility] | | | | | LABORATORY [...] + + | OLEGARIO MIRANDA | [address] | [place] [address] | | | [facility] | | | | | [...] + + | OLEGARIO MIRANDA | [address] | [place] [address] | | | [facility] | | | | | [...] + + | OLEGARIO MIRANDA | [address] | [place] [address] | | | [facility] | | | | | LABORATORY [...] + + | OLEGARIO MIRANDA | [address] | [place] [address] | | | [facility] | | | | | LABORATORY [...] | | | jugular venous access and Pollock-Michael catheter and to the area of | | | segmental right lower lobe arteries. Total number of images: 1. | | | IMPRESSION: Fluoroscopic assisted right jugular venous access with | | | Pollock-Michael catheter. Signed by: Fredy Miranda | | [...] image showing left jugular venous access and Pollock-Michael | | catheter and to the area of segmental right lower lobe arteries. | | | | Total number of images: 1. | | | | IMPRESSION: | | Fluoroscopic assisted right jugular venous access with Pollock-Michael | | catheter. | | | | [...] + + | MARAHLIBERTADGabriel MIRANDA | [address] | [place] [address] | | | [facility] | | | | | LABORATORY [...] [facility] | [address] | [place] [address] | | | [facility] | | | | | [...] + + | OLEGARIO MIRANDA | [address] | [place] [address] | | | [facility] | | | | | LABORATORY [...] - 1.030 | [facility] | | | [place] | | | [facility] | | | [...] + + | OLEGARIO MIRANDA | [address] | [place] [address] | | | [facility] | | | | | LABORATORY [...] | | | | | | [facility] | | | | | | [facility] | | | | | | [facility] | | | | | [facility] | | | | | | [facility] | | + + + + + + | Rh Type | Positive | | REFERENCE | | | | | | [facility] | | | | | [facility] | | | | | | [facility] | | | | | | [facility] | | | | | | [facility] | | + + + + + + | Antibody | NegativeComment: Patient | | REFERENCE | | | Screen | is remote crossmatch | | [facility] | | | | eligible | | [...] + + + | Specimen Expiration Date: [id number] | RE[facility] | | | [facility] | | | [facility] | | | [facility] | + + + + + + + + | Performing | Address | City/State/Zipcode | Phone Number | | Organization | | | | + + + + + | [facility] | [address] | [place] [address] | [phone] | | [facility] | | | | | [facility] [...] + + | OLEGARIO MIRANDA | [address] | [place] [address] | | | [facility] | | | | | LABORATORY [...] + + | OLEGARIO MIRANDA | [address] | [place] [address] | | | [facility] | | | | | LABORATORY | | | | + + + + + Hemoglobin A1C (10/31/2016 4:09 PM PDT) + + + + + + | Component | Value | Ref Range | Performed | Pathologist | | | | | At | Signature | + + + + + + | Hemoglobin | 5.4Comment: The Mauritanian | 4.3 - 6.1 % | OLEGARIO [...] + + | [facility] | [address] | [place] [address] | | | [facility] | [...] + + | MARAHLIBERTADGabriel MIRANDA | [address] | [place] [address] | | | [facility] | | | | | LABORATORY [...] + + + | Glucose | 93Comment: Mauritanian | 65 - 99 mg/dL | [facility] [...] + + | OLEGARIO SACRDRU | [address] | [place] [address] | | | [facility] | | | | | LABORATORY [...] | TRACEMASTER | | Duration:148 msP Horizontal Abernathy:24 degP Front Abernathy:69 degQ Onset:512 | | | msQRSD Interval:84 msQT Interval:424 msQTcB:406 msQTcF:412 msQRS | | | Horizontal Abernathy:4 degQRS Abernathy:36 degI-40 Horizontal Abernathy: degI-40 | | | Front Abernathy:30 degT-40 Horizontal Abernathy:-7 degT-40 Front Abernathy:36 degT | | | Horizontal Abernathy:60 degT Wave Abernathy:61 degS-T Horizontal Abernathy:108 degS-T | | | Front Abernathy:89 degSeverity:- ABNORMAL ECG -INTERP:SINUS | | | RHYTHMINTERP:CONSIDER LEFT VENTRICULAR HYPERTROPHYElectronically | | | signed by: Ramin PEREZ 11-01-2016 06:15:12 | | |QTcB:406 ms | | |QTcF:412 ms | | |QRS Horizontal Abernathy:4 deg | | |QRS Abernathy:36 deg | | |I-40 Horizontal Abernathy: deg | | |I-40 Front Abernathy:30 deg | | |T-40 Horizontal Abernathy:-7 deg | | |T-40 Front Abernathy:36 deg | | |T Horizontal Abernathy:60 deg | | |T Wave Abernathy:61 deg | | |S-T Horizontal Abernathy:108 deg | | |S-T Front Abernathy:89 deg | | |Severity:- ABNORMAL ECG - | | |INTERP:SINUS RHYTHM | | |INTERP:CONSIDER LEFT VENTRICULAR HYPERTROPHY | | |Electronically signed by: Ramin PEREZ 11-01-2016 06:15:12 | | + + + + + + + + | Performing | Address | City/State/Zipcode | Phone Number | | Organization | | | | + + + + + | ROSEANN CORREA | [address] | [place] [address] | [phone] | + + + + + MRSA [...] + + | MARAHFABIAN MIRANDA | [address] | [place] [address] | | | [facility] | | | | | LABORATORY | | | | + + + + + documented in this encounter Visit Diagnoses + + | Diagnosis | + + | Coronary atherosclerosis of unspecified type of vessel, robinson or graft | + + documented in [...]
--- OUTSIDE RECORDS SUMMARY | ~2019-04-12 | XMS | Encounter Summary ---
Demographics + + + | Address | [address] | | | [place] [address] | + + + | Home Phone [...] Author | [facility] | | | and Ohana | + + + | Organization | [facility] | | [...] | | | | | [place] [address] | | + + + + + | Hunter Jackson | ECON | [place] | | + + + + + | Wes Jackson | ECON | [place], [place] | | + + + + + | Oziel Jackson | ECON | [place], [place] | | + + + + + Care Team Providers + +------+ + | Care Power Bender Operator Name | Role | Phone | + +------+ + | Rodolfo Cruz MD | PCP | | + +------+ + Encounter Details +--------+ + + + + | Date | Type | Department | Care Team | Description | +--------+ + + + + | 11/30/ | Abstract | [facility] | Rodolfo Cruz, | | | 2013 | | MEDICINE [address] [place] [address] | MD [address] | | | | | [facility] | [place] | | | | | [place] [address] | [address] | | | | | [phone] | | | +--------+ + + + [...] [place] | | | | | | [address] | | | | | | | | +--------+---------+ + + + | 11/21/ | Office | Cardiology | Yesi, | | | 2019 | Visit | | JOSE ALBERTO Linder [address] | | | | | | [place], | | | | | | [place] [address] | | | | | | [phone] | | | | | | | [...]
--- OUTSIDE RECORDS SUMMARY | ~2019-04-12 | XMS | Encounter Summary ---
Demographics + + + | Address | [address] | | | [place] [address] | + + + | Home Phone [...] + + | Author | [facility] | | | and [place] | + + + | Organization | [facility] | | [...] | | | | | [place] [address] | | + + + + + | Hunter Jackson | ECON | [place] | | + + + + + | Wes Jackson | ECON | [place], [place] | | + + + + + | Oziel Jackson | ECON | [place], [place] | | + + + + + Care Team Providers + +------+ + | Care Ict Help Desk Technician Name | Role | Phone | [...] Description | +--------+--------+ + + + | 09/01/ | Refill | [facility] | Rodolfo Cruz, | Medication Refill | | 2013 | | MEDICINE [place] | [address] | | | | | [address] | [place] | | | | | [place] | [address] | | | | | [address] | | | | | | [phone] | | | +--------+--------+ + + + [...] | | | | | | [place] [address] | | | | | | [phone] | | | | | | | | +--------+---------+ + + + documented as of this encounter Visit Diagnoses Not on filedocumented in this encounter"
--- OUTSIDE RECORDS SUMMARY | ~2019-04-12 | XMS | Encounter Summary ---
Demographics + + + | Address | [address] | | | [place] [address] | + + + | Home Phone [...] Author | [facility] | | | and [place] | + + + | Organization | [facility] | [...] | | | | | [place] [address] | | + + + + + | Hunter Jackson | ECON | [place] | | + + + + + | Wes Jackson | ECON | [place], [place] | | + + + + + | Oziel Jackson | ECON | [place], [place] | | + + + + + Care Team Providers + +------+ + | Care Wire Coiler Machine Operator Name | Role | Phone | + +------+ + | Rodolfo Cruz MD | PCP | | + +------+ + Encounter Details +--------+ + + + + | Date | Type | Department | Care Team | Description | +--------+ + + + + | 10/25/ | Hospital | [facility] | Martkristinaalina Kristinamart, | | | 2014 | Encounter | [facility] LAB[facility] | [address] [facility] | | | | | [address] | [facility], | | | | | [place], [place] | [place] [address] | | | | | [address] | [phone] | | | | | [phone] | | | +--------+ + + + [...] STREET[place] | | | | | | [address] | | | | | | | | +--------+---------+ + + + | 11/21/ | Office | Cardiology | Yesi, | | | 2019 | Visit | | JOSE ALBERTO [address]inder [address] | | | | | | [place], | | | | | | [place] [address] | | | | | | [phone] | | | | | | | | +--------+---------+ + + + documented as of this encounter Visit Diagnoses Not on filedocumented in this encounter"
--- OUTSIDE RECORDS SUMMARY | ~2019-04-12 | XMS | Encounter Summary ---
Demographics + + + | Address | [address] | | | [place] [address] | + + + | Home Phone [...] | [facility] | | | and [place]ana | + + + | Organization | [facility] | [...] | | | | | [place] [address] | | + + + + + | Hunter Jackson | ECON | [place] | | + + + + + | Wes Jackson | ECON | [place], [place] | | + + + + + | Oziel Jackson | ECON | [place], [place] | | + + + + + Care Team Providers + +------+ + | Care Sulfonation Equipment Operator Name | Role | Phone [...] + + | 01/25/ | Telephone | [facility] | Rodolfo Cruz, | Medication Refill | | 2013 | | MEDICINE [facility] | MD [address] | | | | | [place] | [place] | | | | | [place] [address] | [address] | | | | | [phone] | | | +--------+ + + + [...] STREET[place] | | | | | | [address] | | | | | | | | +--------+---------+ + + + | 11/21/ | Office | Cardiology | Yesi, | | | 2019 | Visit | | JOSE ALBERTO Linder [address] | | | | | | [place] | | | | | | [place] [address] | | | | | | [phone] | | | | | | | | +--------+---------+ + + + documented as of this encounter Visit Diagnoses + + | Diagnosis | + + | Back pain - Primary Backache, unspecified | + + documented in this encounter"
--- OUTSIDE RECORDS SUMMARY | ~2019-04-12 | XMS | Encounter Summary ---
Demographics + + + | Address | [address] | | | [place] [address] | + + + | Home Phone [...] + | Author | [facility] | | | and [place] | + + + | Organization | [facility] | | | and [place] | + + + | Address | Unknown | + + + | Phone | Unavailable | + + + Support + + + + + | Name | Relationship | Address | Phone | + + + + + | Osmin Jackson | ECON | [address] | | | | | [place] [address] | | + + + + + | Hunter Jackson | ECON | [place] | | + + + + + | Wes Jackson | ECON | [place], [place] | | + + + + + | Oziel Jackson | ECON | [place], [place] | | + + + + + Care Team Providers + +------+ + | Care Crusher Supervisor Name | Role | Phone | + +------+ + | Rodolfo Cruz MD | PCP | | + +------+ + Encounter Details +--------+ + + + + | Date | Type | Department | Care Team | Description | +--------+ + + + + | 06/16/ | Hospital | [facility] | Rodolfo Cruz, | Fatigue; Essential | | 2014 | Encounter | MED CTR LAB[facility]ORY | MD Raya RASHID | hypertension; | | | | [address] [place] | [place], [place] | Pulmonary nodule, | | | | [place], [place] | [address] | right; Pulmonary | | | | [address] | | nodule | | | | [phone] | | | +--------+ + + + [...] STREET[place] | | | | | | [address] | | | | | | | | +--------+---------+ + + + | 11/21/ | Office | Cardiology | Yesi, | | | 2019 | Visit | | JOSE ALBERTO Linder [address] | | | | | | [place], | | | | | | [place] [address] | | | | | | [phone] | | | | | | | [...] mL/min/1.73m2 | [facility] | | | [facility] | | | MEDICAL | | | [...] + | [facility] | [address] | [place], [place] | [phone] | | [facility] | | [address] | | | - LABORATORY | | | | + + + + + | [facility] | [address] | [place], [place] | | | [facility] | | [address] | | | - LABORATORY | | [...] + | [facility] | [address] | [place] | [phone] | | [facility] | | [address] | | | - LABORATORY | | | | + + + + + | [facility] | [address] | [place] | | | [facility] | | [address] | | | - LABORATORY | | [...] ST. | [address] | [place], [place] | [phone] | | [facility] | | [address] | | | - LABORATORY | | | | + + + + + | [facility] | [address] | [place], [place] | | | [facility] | | [address] | | | - LABORATORY | | [...] | samples are screened | uIU/mL | [facility] | | | | using [...] + | [facility] | [address] | [place] | [phone] | | [facility] | | [address] | | | - LABORATORY | | | | + + + + + | [facility] | [address] | [place] | | | [facility] | | [address] | | | - LABORATORY | | [...] | | FILTRATION | mL/min/1.73m2 | [facility] | | | [facility] | RATE,ESTIMATED | | MEDICAL | | | | mL/min/1.60r0Hlbz than | | CENTER - | | [...] | | | | mg/dL | [facility] | | | | | | MEDICAL | | | | | | CENTER - | | | | | | LABORATORY | | + + + + + + | Albumin | 4.0 | 3.2 - 5.0 g/dL | [facility] | | | | | | [facility] | | | | | [...] [address] | [place] | [phone] | | [facility] | | [address] | | | - LABORATORY | | | | + + + + + | [facility] | [address] | [place] | | | [facility] | | [address] | | | - LABORATORY | | [...] | | | | Yellow | [facility] | [...] - 1.030 | [facility] | | | [place] | | | [facility] | | [...] | | Urine | | | [facility] | | [...] + | [facility] | [address] | [place], [place] | [phone] | | [facility] | | [address] | | | - LABORATORY | | | | + + + + + | [facility] | [address] | [place], [place] | | | [facility] | | [address] | | | - LABORATORY | | [...] [address] | [place] | [phone] | | [facility] | | [address] | | | - LABORATORY | | | | + + + + + | [facility] | [address] | [place] | | | [facility] | | [address] | | | - LABORATORY | | [...] + | [facility] | [address] | [place] | [phone] | | [facility] | | [address] | | | - LABORATORY | | | | + + + + + | [facility] | [address] | [place] | | | [facility] | | [address] | | | - LABORATORY | | [...] + | [facility] | [address] | [place], [place] | [phone] | | [facility] | | [address] | | | - LABORATORY | | | | + + + + + | [facility] | [address] | [place], [place] | | | [facility] | | [address] | | | - LABORATORY | | [...]
--- OUTSIDE RECORDS SUMMARY | ~2019-04-12 | XMS | Encounter Summary ---
Demographics + + + | Address | [address] | | | [place] [address] | + + + | Home Phone [...] Author | [facility] | | | and [place] | + + + | Organization | [facility] [...] | | | | | [place] [address] | | + + + + + | Hunter Jackson | ECON | [place] | | + + + + + | Wes Jackson | ECON | [place], [place] | | + + + + + | Oziel Jackson | ECON | [place], [place] | | + + + + + Care Team Providers + +------+ + | Care Head Holder Name | Role | Phone | + +------+ + | Rodolfo Cruz MD | PCP | | + +------+ + Reason for Visit + + + | Reason | Comments | + + + | Follow-up | Right hand pain requesting an injection | + + + Encounter Details +--------+---------+ + + + | Date | Type | Department | Care Team | Description | +--------+---------+ + + + | 07/23/ | Office | [facility] [place] | Ulysses Jensen, | [facility] arthritis, | | 2012 | Visit | ORTHOPEDIC SURGERY | [address] | thumb, degenerative | | | | [address] | [place] | (Primary Dx) | | | | [place] | [address] | | | | | [address] | | | | | | [phone] | | | +--------+---------+ + + + [...] Temperature | 36.8 C (98.2 F) | 07/23/2012 11:11 AM | | | | | PDT [...] Weight | 90.7 kg (200 lb) | 07/23/2012 11:11 AM | | | | | PDT | | + + + + + | Height | 167.6 cm (5' 6") | 07/23/2012 11:11 AM | | | | | PDT | | + + + + + | Body Mass Index | 32.28 | 07/23/2012 11:11 AM | | | | | PDT | | + + + + + documented in this encounter Progress Notes Ulysses Jensen MD - 07/23/2012 12:02 PM 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 Had good relief from previous injection Wishes to repeat today Under sterile conditions I injected 1/2 cc celestone into first cmc joint after preliminary local with lidocaine 1% She will return prn do cumented in this encounter Plan of Treatment +--------+---------+ [...] [address] | | | | | | [place], | | | | | | [place] [address] | | | | | | [phone] | | | | | | | [...] +------+------+------+ | betamethasone (CELESTONE | Given | 07/24/19 | 6 mg | | | | SOLUSPAN) injection 6 mg 6 mg, | | 13 11:27 | | | | | Intra-articular, ONCE, Roxy | | AM PDT | | | | | 07/23/12 at 1145, For 1 dose, | | | | | | | Shake well. Not for IV use., | | | | | | + +--------+ +------+------+------+ +---+---+ | | | +---+---+ + +-------+ +-------+---+---+ | bupivacaine (MARCAINE) 0.5% | Given | 07/24/19 | 3 mLs | | | | injection 3 mL 3 mL, | | 13 11:28 | | | | | Infiltration, ONCE, Rxoy 07/23/12 | | AM PDT | | | | | at 1145, For 1 dose | | | | | | + +-------+ +-------+---+---+ +---+---+ | | | +---+---+ documented in this encounter
--- OUTSIDE RECORDS SUMMARY | ~2019-04-12 | XMS | Encounter Summary ---
Demographics + + + | Address | [address] | | | [place] [address] | + + + | Home Phone [...] + | Author | [facility] | | | and Ohana | + + + | Organization | [facility] [...] S[place] | | | | | [place] [address] | | + + + + + | Hunter Jackson | ECON | [place] | | + + + + + | Wes Jackson | ECON | [place], [place] | | + + + + + | Oziel Jackson | ECON | [place], [place] | | + + + + + Care Team Providers + +------+ + | Care Datapower Consultant Name | Role | Phone | [...] | Essential | Yesi, | [address] | | | | | hypertension | JOSE ALBERTO Harry | [place], | | | | | with goal | [address] | [place] | | | | | blood | [address] | [address] | | | | | pressure | [facility], | Phone: | | | | | less than | [place] | [phone] | | | | | 130/80 | [address] | Fax: | | | | | Murmur | Phone: | [phone] | | | | | Procedures | [phone] | | | | | | ECHO | Fax: | | | | | | Complete CO | [phone] | | | | | | ECHO HEART | | | | | | | XTHORACIC,CO | | | | | | | MPLETE W | | | | | | | DOPPLER CO | | | | | | | [...] | Essential | Yesi, | [address] | | | | | hypertension | JOSE ALBERTO Harry | [place], | | | | | with goal | [address] | [place] | | | | | blood | [place] | [address] | | | | | pressure | [place], | Phone: | | | | | less than | [place] | [phone] | | | | | 130/80 | [address] | Fax: | | | | | Murmur | Phone: | [phone] | | | | | Procedures | [phone] | | | | | | ECHO | Fax: | | | | | | Complete [place] | [phone] | | | | | | ECHO HEART | | | | | | | XTHORACIC,CO | | | | | | | MPLETE W | | | | | | | DOPPLER CO | | | | | | | [...] + + | 07/16/ | Hospital | [facility] | Yesi, | Essential | | 2017 | Encounter | MED CTR ECHO [address] | Niyah SADDLE AND SIDE WIRE STITCHER [address] | hypertension with | | | | [address] [place] | [address], | goal blood pressure | | | | [place] [address] | [place] [address] | less than 130/80; | | | | [phone] | [phone] | Murmur | | | | | [...] | | | | 7 | | SUPERVISOR [employer] DIV[employer] PO) | | | | | | [...] [place] | | | | | | 879202 | | | | | | | | +--------+---------+ + + + | 11/21/ | Office | Cardiology | Yesi, | | | 2019 | Visit | | JOSE ALBERTO Harry [address] | | | | | | [place] | | | | | | [place] [address] | | | | | | [phone] | | | | | | | [...] Room Number DEION Patient Number | [facility] | | [id number] Date of Study 07/16/2016 Visit Number | - IMAGING | | [id number] Referring | | | Physician YG HARRY Number Date of 1935 | | | Chrome Cleaner BAUDILIO LOWERY SALLY Age | | | 80 year(s) Interpreting [place] | | | Drink Mixer | | | CHRISTOPHER ARECHIGA MD Gender [...] | 50.56 ml | | | EF Wuzykpsjn08% Left Ventricle Diastolic Dimension: 5.07 | | [...] Volume: 50.56 ml | | | EF Duqlugawy97% | | | | | | Left [...] Room Number DEION | | Patient Number [id number] Date of Study 07/16/2016 Visit Number | | [id number] Referring Physician YG HARRY Number | | Date of 1935 Chrome Cleaner BAUDILIO LOWERY SALLY Age | | 80 year(s) Interpreting [place] | | Drink Mixer CHRISTOPHER ARECHIGA MD Gender Female | | [...] [place] Volume: 50.56 ml | | EF Ualhaxcgp39% Left Ventricle Diastolic Dimension: 5.07 cm | [...] LA Volume: 50.56 ml | | EF Ywtodxhzs55% | | | | Left Ventricle | [...] [address] | [place] | [phone] | | [facility] | | [address] | | | - IMAGING | | | | + + + + + documented in this encounter Visit Diagnoses + + | Diagnosis | + + | Essential hypertension with goal blood pressure less than 130/80 | + + | Murmur Undiagnosed cardiac murmurs | + + documented in this encounter"
--- OUTSIDE RECORDS SUMMARY | ~2019-04-12 | XMS | Encounter Summary ---
Demographics + + + | Address | [address] | | | [place] [address] | + + + | Home Phone [...] Author | [facility] | | | and Ohana | + + + | Organization | [facility] [...] | | | | | [place] [address] | | + + + + + | Hunter Jackson | ECON | [place] | | + + + + + | Wes Jackson | ECON | [place], [place] | | + + + + + | Oziel Jackson | ECON | [place], [place] | | + + + + + Care Team Providers + +------+ + | Care Hand I Tube Bender Name | Role | Phone | + [...] + | 05/19/ | Office | [facility] | Ulysses Jensen, | Primary | | 2014 | Visit | ORTHOPEDIC SURGERY | MD Danny PARHAM | osteoarthritis of | | | | [address] [facility] | [place] | right shoulder | | | | [place] | [address] | (Primary Dx) | | | | [address] | | | | | | [phone] | | | +--------+---------+ + + + [...] STREETER | | | | | | [address] | | | | | | | | +--------+---------+ + + + | 11/21/ | Office | Cardiology | Yesi, | | | 2019 | Visit | | JOSE ALBERTO Linder [address] | | | | | | [place], | | | | | | [place] [address] | | | | | | [phone] | | | | | | | | +--------+---------+ + + + documented as of this encounter Visit Diagnoses + + | Diagnosis | + + | Primary osteoarthritis of right shoulder - Primary Primary localized osteoarthrosis, | | shoulder region | + + documented in this encounter
--- OUTSIDE RECORDS SUMMARY | ~2019-04-12 | XMS | Encounter Summary ---
Demographics + + + | Address | [address] | | | [place] [address] | + + + | Home Phone [...] + | Author | [facility] | | | and Ohana | + + + | Organization | [facility] | | [...] | | | | | [place] [address] | | + + + + + | Hunter Jackson | ECON | [place] | | + + + + + | Wes Jackson | ECON | [place], [place] | | + + + + + | Oziel Jackson | ECON | [place], [place] | | + + + + + Care Team Providers + +------+ + | Care Foxer Name | Role | Phone | + +------+ + | Rodolfo Cruz MD | PCP | | + +------+ + Encounter Details +--------+ + + + + | Date | Type | Department | Care Team | Description | +--------+ + + + + | 09/25/ | Hospital | [facility] | Rodolfo Cruz, | Essential | | 2016 | Encounter | MED CTR LABORATORY | MD Raya DING AVGabriel | hypertension; | | | | [address] [place] | [place], [place] | Hyperlipidemia; | | | | [place] | [address] | Pre-procedure lab | | | | [address] | | exam; Other | | | | [phone] | | specified | | | | [...] + + + +---------+ + + | Speedwell 3 1000 MG | Take by mouth. [...] [place] | | | | | | [address] | | | | | | | | +--------+---------+ + + + | 11/21/ | Office | Cardiology | Yesi, | | | 2019 | Visit | | JOSE ALBERTO Linder [address] | | | | | | [address] [place], | | | | | | [place] [address] | | | | | | [phone] | | | | | | | [...] + | [facility] [facility] | [address] | [place] | [phone] | | [facility] | | [address] | | | - LABORATORY | | [...] mL/min/1.73m2 | [facility] | | | [facility] [place] | RATE,ESTIMATED | | MEDICAL | | | | mL/min/1.23b2Evzs than | | CENTER - | | [...] + | [facility] | [address] | [place] | [phone] | | [facility] | | [address] | | | - LABORATORY | | [...] + | [facility] | [address] | [place] | [phone] | | [facility] | | [address] | | | - LABORATORY | | [...] [address] | [place] | [phone] | | [facility] | | [address] | | | - LABORATORY | | [...]
--- OUTSIDE RECORDS SUMMARY | ~2019-04-12 | XMS | Encounter Summary ---
Demographics + + + | Address | [address] | | | [place] [address] | + + + | Home Phone [...] | Author | [facility] | | | and Ohana | + + + | Organization | [facility] [...] | | | | | [place] [address] | | + + + + + | Hunter Jackson | ECON | [place] | | + + + + + | Wes Jackson | ECON | [place], [place] | | + + + + + | Oziel Jackson | ECON | [place], [place] | | + + + + + Care Team Providers + +------+ + | Care Communications Equipment Supervisor Name | Role | Phone | + +------+ + | Rodolfo Cruz MD | PCP | | + +------+ + Reason for Visit + + + | Reason | Comments | + + + | Blood Pressure Check | Log from 11/18/14 till 12/02/14 | | (Screening) | | + + + Encounter Details +--------+ + + + + | Date | Type | Department | Care Team | Description | +--------+ + + + + | 12/09/ | Telephone | [facility] | Yesi | Blood Pressure Check | | 2014 | | CARDIOLOGY [address] | JOSE ALBERTO Linder [address] | (Screening) (Log | | | | [place], | [place], | from 11/18/14 till | | | | [place] [address] | [place] [address] | 12/02/14) | | | | [phone] | [phone] | | | | | | | [...] STREETER | | | | | | [address] | | | | | | | | +--------+---------+ + + + | 11/21/ | Office | Cardiology | Yesi, | | | 2020 | Visit | | JOSE ALBERTO [address] | | | | | | [place], | | | | | | [place] [address] | | | | | | [phone] | | | | | | | | +--------+---------+ + + + documented as of this encounter Visit Diagnoses Not on filedocumented in this encounter"
--- OUTSIDE RECORDS SUMMARY | ~2019-04-12 | XMS | Encounter Summary ---
Demographics + + + | Address | [address] | | | [place] [address] | + + + | Home Phone [...] + + | Author | [facility] | | | and Ohana | + + + | Organization | [facility] | | [...] | | | | | [place] [address] | | + + + + + | Hunter Jackson | ECON | [place] | | + + + + + | Wes Jackson | ECON | [place], [place] | | + + + + + | Oziel Jackson | ECON | [place], [place] | | + + + + + Care Team Providers + +------+ + | Care Chute Puller Name | Role | Phone | + [...] | [address] | | | | | [address] | | | | | | [phone] | | | +--------+--------+ + + + [...] STREETER | | | | | | [address] | | | | | | | | +--------+---------+ + + + | 11/21/ | Office | Cardiology | Yesi, | | | 2019 | Visit | | JOSE ALBERTO [address] | | | | | | [place] | | | | | | [place] [address] | | | | | | [phone] | | | | | | | | +--------+---------+ + + + documented as of this encounter Visit Diagnoses Not on filedocumented in this encounter"
--- OUTSIDE RECORDS SUMMARY | ~2019-04-12 | XMS | Encounter Summary ---
Demographics + + + | Address | [address] | | | [place] [address] | + + + | Home Phone [...] Author | [facility] | | | and Ohana | + + + | Organization | [facility] | | | and [...] | | | | | [place] [address] | | + + + + + | Hunter Jackson | ECON | [place] | | + + + + + | Wes Jackson | ECON | [place], [place] | | + + + + + | Oziel Jackson | ECON | [place], [place] | | + + + + + Care Team Providers + +------+ + | Care Management Intern Name | Role | Phone | [...] + + | 10/22/ | Office | [facility] | Rodolfo Cruz, | Thoracic sprain and | | 2013 | Visit | MEDICINE [address] [place] [address] | MD Dos [address] | strain, initial | | | | Street [place] | [place], [place] | encounter (Primary | | | | [place] [address] | [address] | Dx); Thoracic sprain | | | | [phone] | | and strain, | | | [...] STREETER | | | | | | [address] | | | | | | | | +--------+---------+ + + + | 11/21/ | Office | Cardiology | Yesi, | | | 2019 | Visit | | JOSE ALBERTO Linder [address] | | | | | | [place] | | | | | | [place] [address] | | | | | | [phone] | | | | | | | [...] + | MISCELLANEOUS LAB | | | [phone] | + +---------+ + + | MISCELANIOUS LAB | | | [phone] | + +---------+ + + Urinalysis with [...] - 1.030 | [facility] | | | [place] | | | [facility] | | [...] [address] | [place] | [phone] | | [facility] | | [address] | | | - LABORATORY | | | | + + + + + | [facility] | [address] | [place] | | | [facility] | | [address] | | | - LABORATORY | | | | + + + + + Sedimentation Rate (10/22/2013 10:44 AM PDT) + +--------+ + + + | Component | Value | Ref Range | Performed | Pathologist | | | | | At | Signature | + +--------+ + + + | ESR | 68 (H) | <30 mm/hr | [facility] | | | | | | ST[facility]atyana [...] + | [facility] | [address] | [place] | [phone] | | [facility] | | [address] | | | - LABORATORY | | | | + + + + + | [facility] | [address] | [place] | | | [facility] | | [address] | | | - LABORATORY | | [...] | | | | | mg/dL | [facility] | | | | | | MEDICAL | | | | | | CENTER - | | | | | | LABORATORY | | + + + + + + | eGFR if not | >60Comment: GLOMERULAR | >=60 | [facility] | | | | FILTRATION | mL/min/1.73m2 | [facility] | | | [place] | RATE,ESTIMATED | | MEDICAL | | | | mL/min/1.90r9Mzxq than | | CENTER - | | [...] | | | | | mg/dL | [facility] | | | | | | [...] + | [facility] [facility] | [address] | [place], [place] | [phone] | | [facility] | | [address] | | | - LABORATORY | | | | + + + + + | [facility] | [address] | [place] | | | [facility] | | [address] | | | - LABORATORY | | [...] + | [facility] | [address] | [place], [place] | [phone] | | [facility] | | [address] | | | - LABORATORY | | | | + + + + + | [facility] | [address] | [place], [place] | | | [facility] | | [address] | | | - LABORATORY | | | | + + + + + documented in this encounter Visit Diagnoses + + | Diagnosis | + + | Thoracic sprain and strain, initial encounter - Primary | + + | Thoracic sprain and strain, subsequent encounter | + + documented in this encounter
--- OUTSIDE RECORDS SUMMARY | ~2019-04-12 | XMS | Encounter Summary ---
Demographics + + + | Address | [address] | | | [place] [address] | + + + | Home Phone [...] Author | [facility] | | | and Ohana | + + + | Organization | [facility] | | [...] | | | | | [place] [address] | | + + + + + | Hunter Jackson | ECON | [place] | | + + + + + | Wes Jackson | ECON | [place], [place] | | + + + + + | Oziel Jackson | ECON | [place], [place] | | + + + + + Care Team Providers + +------+ + | Care Mailroom Supervisor Name | Role | Phone | [...] pain (Primary | | | | [place], | [place], | Dx) | | | | [place] [address] | [place] [address] | | | | | [phone] | [phone] | | | | | | | [...] with initial visit started b y Dr. Sebly. Previously it was recommended that she participate [...] no apparent deficits with short or terminal worker memory. She has appropriate fund of knowledge [...] LORDOSIS WITH MULTILEVEL DEGENERATIVE DISC DISEASE AND [place] LD RETROLISTHESIS WHICH IS SIMILAR TO MRI [...] | | | | | | [place] [address] | | | | | | [phone] | | | | | | | [...]
--- OUTSIDE RECORDS SUMMARY | ~2019-04-12 | XMS | Encounter Summary ---
Demographics + + + | Address | [address] | | | [place] [address] | + + + | Home Phone [...] Author | [facility] | | | and Ohana | + + + | Organization | [facility] | | [...] | | | | | [place] [address] | | + + + + + | Hunter Jackson | ECON | [place] | | + + + + + | Wes Jackson | ECON | [place], [place] | | + + + + + | Oziel Jackson | ECON | [place], [place] | | + + + + + Care Team Providers + +------+ + | Care Tactical Air Control Party Manager Name | Role | Phone | [...] + | 05/17/ | Telephone | [facility] | Yesi, | Lab Order (due for | | 2015 | | CARDIOLOGY [address] | JOSE ALBERTO Linder [address] | fasting labs) | | | | [place], | [place], | | | | | [place] [address] | [place] [address] | | | | | [phone] | | | | | | | [...] STREETER | | | | | | [address] | | | | | | | | +--------+---------+ + + + | 11/21/ | Office | Cardiology | Yesi, | | | 2019 | Visit | | JOSE ALBERTO [address]inder [address] | | | | | | [place] | | | | | | [place] [address] | | | | | | [phone] | | | | | | | | +--------+---------+ + + + documented as of this encounter Visit Diagnoses + + | Diagnosis | + + | Hyperlipidemia, unspecified hyperlipidemia - Primary | + + documented in this encounter"
--- OUTSIDE RECORDS SUMMARY | ~2019-04-12 | XMS | Encounter Summary ---
Demographics + + + | Address | [address] | | | [place] [address] | + + + | Home Phone [...] + | Author | [facility] | | | and Ohana | + + + | Organization | [facility] [...] [place] | | | | | [place] [address] | | + + + + + | Hunter Jackson | ECON | [place] | | + + + + + | Wes Jackson | ECON | [place], [place] | | + + + + + | Oziel Jackson | ECON | [place], [place] | | + + + + + Care Team Providers + +------+ + | Care Inspector Returned Materials Name | Role | Phone | + [...] | [address] | [place] [address] | | | | | [place], [place] | [phone] | | | | | [address] | | | | | | [phone] | | | +--------+ + + + [...] | | | | | | [place] [address] | | | | | | [phone] | | | | | | | | +--------+---------+ + + + documented as of this encounter Visit Diagnoses Not on filedocumented in this encounter"
--- OUTSIDE RECORDS SUMMARY | ~2019-04-12 | XMS | Encounter Summary ---
Demographics + + + | Address | [address] | | | [place] [address] | + + + | Home Phone | | + + + | Preferred Language | Unknown | + + + | Marital Status | Single | + + + | Sabianism Affiliation [...] Team Providers + +------+ + | Care Sheetrock Applicator Name | Role | Phone | + +------+ + PCP | Unavailable | + +------+ + Encounter Details +--------+ + + + + | Date | Type | Department | Care Team | Description | +--------+ + + + + | 04/03/ | Results | | Other, Faculty | | | 2004 | Only | | [phone] | | +--------+ + + + + [...] | | | | | MNT) | [address] CLINICAL | | | | | | [...] [facility] | [address], [address] | [place] [address] | | | DERMATOPATHOLOGY | [address] [...] | | | | | MNT) | [address] CLINICAL | | | | | | [...] [facility] | Rich MCCORMICK, [address] | [place] [id number] | | | DERMATOPATHOLOGY | [address] | | | + + + + + documented in this encounter Visit Diagnoses Not on filedocumented in this encounter"
--- OUTSIDE RECORDS SUMMARY | ~2019-04-12 | XMS | Encounter Summary ---
Demographics + + + | Address | [address] | | | [place] [address] | + + + | Home Phone | | + + + | Preferred Language | Unknown | + + + | Marital Status | | + + + | Islam Affiliation | Unknown | + + + | Race | Unknown | + + + | Ethnic Group | Unknown | + + + Author + + + | Author | and [facility] | | | and [place] | + + + | Organization | and [facility] | | | and [place] | + + + | Address | Unknown | + + + | Phone | Unavailable | + + + Support + + + + + | Name | Relationship | Address | Phone | + + + + + | Osmin Jakcson | ECON | [address] | | | | | [place] [address] | | + + + + + | Hunter Jackson | ECON | [place] | | + + + + + | Wes Jackson | ECON | [place], [place] | | + + + + + | Oziel Jackson | ECON | [place], [place] | | + + + + + Care Team Providers + +------+ + | Care Data Technical Lead Name | Role | Phone | [...] | Cervical | [place], | [address] | | | | | radiculopath | Harsha Moreno MD | [place], | | | | | y | [address] | [place] | | | | | Procedures | [facility] | [address] | | | | | [place] | [place] | Phone: | | | | | DX/THER SBST | [address] | [phone] | | | | | INTRLMNR | Phone: | Fax: | | | | | CRV/THRC | [phone] | [phone] | | | | | W/IMG GDN | Fax: | | | | | | NE | [phone] | | | | | | TRIAMCINOLON [...] + + | 08/29/ | Hospital | [facility] | [place], | Cervical | | 2017 | Encounter | MED CTR XRAY [address] | ANN [address]din [address] | radiculopathy | | | | [address] | [facility], | (Primary Dx); DDD | | | | [place] [address] | [place] [address] | (degenerative disc | | | | [phone] | [phone] | disease), cervical; | | | | | | Foraminal stenosis | | | | | Traveling Repair Accountant, [facility] | of cervical region; | | [...] STREETER | | | | | | [address] | | | | | | | | +--------+---------+ + + + | 11/21/ | Office | Cardiology | Yesi, | | | 2019 | Visit | | JOSE ALBERTO [address]inder [address] | | | | | | [place] | | | | | | [place] [address] | | | | | | [phone] | | | | | | | [...] presents to the fluoroscopy suite for a [facility] | | fluoroscopically-guided C7-T1 interlaminar epidural [...] + + | Performing | Address | City/State/[facility] | Phone Number | | Organization | | | | + + + + + | [facility] [facility] | [address] | [place] | [phone] | | [facility] | | [address] | | | - IMAGING | | [...] | | | | | Other, ONCE, [facility] 08/29/16 at 1330, | | PM [...]
--- OUTSIDE RECORDS SUMMARY | ~2019-04-12 | XMS | Encounter Summary ---
Demographics + + + | Address | [address] | | | [place] [address] | + + + | Home Phone [...] | Author | [facility] | | | and Ohana | + + + | Organization | [facility] | | [...] | | | | | [place] [address] | | + + + + + | Hunter Jackson | ECON | [place] | | + + + + + | Wes Jackson | ECON | [place], [place] | | + + + + + | Oziel Jackson | ECON | [place], [place] | | + + + + + Care Team Providers + +------+ + | Care Firestopper Installer Name | Role | Phone | [...] Description | +--------+--------+ + + + | 10/11/ | Refill | [facility] | Rodolfo Cruz, | Medication Refill | | 2015 | | MEDICINE [address] | MD [address] | | | | | [place] | [place] | | | | | [place] [address] | [address] | | | | | [phone] | | | +--------+--------+ + + + [...] STREETER | | | | | | [address] | | | | | | | | +--------+---------+ + + + | 11/21/ | Office | Cardiology | Yesi, | | | 2019 | Visit | | JOSE ALBERTO [address] | | | | | | [place] | | | | | | [place] [address] | | | | | | [phone] | | | | | | | | +--------+---------+ + + + documented as of this encounter Visit Diagnoses + + | Diagnosis | + + | Pain Generalized pain | + + documented in this encounter"
--- OUTSIDE RECORDS SUMMARY | ~2019-04-12 | XMS | Encounter Summary ---
Demographics + + + | Address | [address] | | | [place] [address] | + + + | Home Phone [...] Author | [facility] | | | and [place] | + + + | Organization | [facility] | | [...] SWA[place] | | | | | [place] [address] | | + + + + + | Hunter Jackson | ECON | [place] | | + + + + + | Wes Jackson | ECON | [place], [place] | | + + + + + | Oziel Jackson | ECON | [place], [place] | | + + + + + Care Team Providers + +------+ + | Care Field Assessor Name | Role | Phone | [...] | disease; Epistaxis; | | | | [place], | [place], | Murmur; Essential | | | | [place] [address] | [place] [address] | hypertension with | | | | [phone] | [phone] | goal blood pressure | | | | | | less than 130/80; | | | | | | Coronary artery | | | | | | disease involving | | | | | | [place] coronary | | | | | | artery of [place] | | | | | | heart with unstable | | | | | | angina pectoris | | | | | | ([facility]); Chest pain, | | | | [...] cervical Cervical radiculopathy Coronary artery disease involving [place] coronary artery of [place] heart with unstable angina pectoris Stress hyperglycemia [...] RESULTS reviewed during visit today primarily from [facility]: LIPID Lab Results Component Value Date [...] BNPEX 63 09/18/2016 I reviewed records from [facility] for office visit on 04/2018 whic h is summarized in the HPI. RESULTS- I reviewed reports from [facility]: No results found. Above data and testing is reviewed this visit; testing below is historical data unless othe rwise specified. ASSESSMENT: 1. Coronary artery disease A. Seen at [facility] they had EKG and sent her home stating it was GERD B. Seen in the emergency room at [facility] for chest pain. Sh e was schedule for stress test and discharged home. C. Stress Test 05/16/16, is maximal asymptomatic stress test, [facility] very poor function status, achieving [...] central AI, no , trace TR, trace [place], normal aorta other than mild calcification at [...] is in class II of th e [place] [employer] Association functional class. There are no [...] this chart may have been created with Shot Stats voice recognition software. Occasi onal wrong-word or [...] [place] | | | | | | [address] | | | | | | | | +--------+---------+ + + + | 11/21/ | Office | Cardiology | Yesi, | | | 2019 | Visit | | JOSE ALBERTO Linder [address] | | | | | | [place], | | | | | | [place] [address] | | | | | | [phone] | | | | | | | [...] involving | | | | | | [place] coronary | | | | | | artery of [place] | | | | | | heart with unstable | | | | | | angina pectoris | | | | | | ([facility]) Chest pain, | | | | [...] MD | | | | | | ([id number]) on 06/01/2018 | | | | | [...] + + | Coronary artery disease involving sc[place] coronary artery of [place] heart with unstable | | angina pectoris (HCC) | + + | Chest pain, unspecified type | + + | Hyperlipidemia, mixed Mixed hyperlipidemia | + + documented in this encounter
--- OUTSIDE RECORDS SUMMARY | ~2019-04-12 | XMS | Encounter Summary ---
Demographics + + + | Address | [address] | | | [place] [address] | + + + | Home Phone [...] Author | [facility] | | | and Ohana | + + + | Organization | [facility] | | | [...] | | | | | [place] [address] | | + + + + + | Hunter Jackson | ECON | [place] | | + + + + + | Wes Jackson | ECON | [place], [place] | | + + + + + | Oziel Jackson | ECON | [place], [place] | | + + + + + Care Team Providers + +------+ + | Care Analytical Lead Name | Role | Phone | [...] [place], | | | | | | [address] | [place] [address] | | | | | | Phone: | Phone: | | | | | | [phone] | [phone] | | | | | | Fax: | Fax: | | | | | | [phone] | [phone] | +--------+ + + + + + Encounter Details +--------+---------+ + + + | Date | Type | Department | Care Team | Description | +--------+---------+ + + + | 07/26/ | Office | [facility] | Ethan Ny | Varicose veins | | 2015 | Visit | SURGERY [address] | MD Mayte, FACS [address] | (Primary Dx) | | | | [place], [place] | [address] [facility] | | | | | [address] | [place] [address] | | | | | [phone] | [phone] | | | | | | | [...] own food shopping and aquatics. 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 Mild leg swelling helped with lasix. Sister with varicose vein and had surgery. AIDEN Score: 2 DATA/RECENT IMAGING None Rodolfo Cruz MD's notes were reviewed in clinic today. PAST MEDICAL HISTORY She has a past medical history of Hypertension; High cholesterol; Hepatitis A (1967); Osteo porosis; MGUS (monoclonal gammopathy of unknown significance); COPD (chronic obstructive pul monary disease) ([facility]); Mononucleosis; Miscarriage; Asthma (); Fracture of foot (approx 2008); Hyperplastic colon polyp (03/28/10); GERD (04/17/2010); TIA (05/08/2010); PUD (peptic ulcer disease) (11/08/2013); Anemia (11/24/2013); Hypothyroidism; Valvular heart disease (05/23); Herpes zoster (05/03/2011); DJD (degenerative joint disease) (07/08/2013); Pulmonary nodules (12/08/2013); Spondylosis, cervical (08/30/2010); UGIB (upper gastrointestinal bleed) (11/14/2013); Vertigo (09/03/2012); Anxiety (May 2014); Arthritis; Encounter for blood transfus ion (November 2013); Stroke ([facility]) (Apr 2010); Hep B complicating ; Chronic low back dorota n (08/24/2014); DDD (degenerative disc disease), lumbar (08/24/2014); Facet arthritis of lumba r region (08/24/2014); Essential hypertension; Clotting disorder ([facility]) (2013); Environmental allergies; Heart murmur; and Tinea corporis (01/31/2015). Past Surgical History She Past Surgical History Procedure Laterality Date Colonoscopy 05/2002; 03/28/10 next due 03/2020 Removal lower left nodules 2004 Foot fracture surgery 2004 left foot Tonsillectomy and adenoidectomy 1955 Upper gastrointestinal endoscopy 11/15/2013 EGD * IP RM: 428 * ; Laterality: N/A; Surgeon: Lauri Garrison MD; [facility] Upper gastrointestinal endoscopy 11/04/2013 EGD IP 449; Laterality: N/A; Surgeon: Samm Pandya MD; Location: [facility] Hemorrhoid surgery 8225-0521 Thyroidectomy Allergies Allergen Reactions Diclofenac Sodium Duodenal [...] REPORT: PATIENT NAME : Soumya Jackson EQUIPMENT: SonVisual Realm-Deedo with 10-5 mHertz probe. INDICATIONS: LEFT calf [...] | | | | | | [place] [address] | | | | | | [phone] | | | | | | | | +--------+---------+ + + + documented as of this encounter Visit Diagnoses + + | Diagnosis | + + | Varicose veins - Primary Asymptomatic varicose veins | + + documented in this encounter
--- OUTSIDE RECORDS SUMMARY | ~2019-04-12 | XMS | Encounter Summary ---
Demographics + + + | Address | [address] | | | [place] [address] | + + + | Home Phone [...] + | Author | [facility] | | | and Ohana | + + + | Organization | [facility] | [...] S[place] | | | | | [place] [address] | | + + + + + | Hunter Jackson | ECON | [place] | | + + + + + | Wes Jackson | ECON | [place], [place] | | + + + + + | Oziel Jackson | ECON | [place], [place] | | + + + + + Care Team Providers + +------+ + | Care Chemical Lab Technician Name | Role | Phone | [...] mixed (Primary Dx); | | | | [place], | [place], | Valvular heart | | | | [place] [address] | [place] [address] | disease; Murmur; | | | | [phone] | [phone] | Essential | | | | | [...] involving | | | | | | kashia coronary | | | | | | artery of kashia | | | | | | heart [...] cervical Cervical radiculopathy Coronary artery disease involving kashia coronary artery of kashia heart with unstable angina pectoris Stress hyperglycemia [...] Interval:140 ms P Duration:140 ms P Horizontal Pompeii:-43 deg P Front Pompeii:60 deg Q Onset:514 ms QRSD Interval:78 ms QT Interval:384 ms QTcB:426 ms QTcF:412 ms QRS Horizontal [place]:3 deg QRS [place]:21 deg I-40 Horizontal [place]ii:-8 deg I-40 Front Pompeii:15 deg T-40 Horizontal [place]ii:-6 deg T-40 Front [place]:22 deg T Horizontal [place]:44 deg T Wave [place]ii:12 deg S-T Horizontal [place]ii:42 deg S-T Front Pompeii:22 deg Severity:- BORDERLINE ECG - INTERP:SINUS RHYTHM INTERP:PROBABLE LEFT ATRIAL ABNORMALITY Electronically signed by: PATRICK BURKETT 11-09-2016 13:17:14 LAB RESULTS reviewed during visit today primarily from [facility]: LIPID Lab Results Component Value [...] PLTEX 370 09/18/2016 I reviewed records from [facility] for office visit on 02/03/2017 w hich is summarized in the HPI. Above data and testing is reviewed this visit; testing below is historical data unless othe rwise specified. ASSESSMENT: 1. Coronary artery disease A. Seen at [facility] they had EKG and sent her home stating it was GERD B. Seen in the emergency room at [facility] for chest pain. She was schedule for stre ss test and discharged home. C. Stress Test 05/16/16, is maximal asymptomatic stress test, [facility] very poor function status, achieving maximal [...] failure.She is in a class I of [place] [employer] f unctional class.on physical examination [...] this chart may have been created with Resultly voice recognition software. Occasi onal wrong-word or [...] STREETER | | | | | | [id number] | | | | | | | | +--------+---------+ + + + | 11/21/ | Office | Cardiology | Yesi, | | 2019 | Visit | | JOSE ALBERTO Linder [address] | | | | | | [place], | | | | | | [place] [address] | | | | | | [phone] | | | | | | | [...] pressures of lower extremities. | | | |[facility] | |Greater than 1.4: Calcification/vessel hardening, [...] + + | Coronary artery disease involving kashia coronary artery of kashia heart with unstable | | angina pectoris (HCC) | + + | Transient cerebral ischemia, unspecified type | + + documented in this encounter
--- OUTSIDE RECORDS SUMMARY | ~2019-04-12 | XMS | Encounter Summary ---
Demographics + + + | Address | [address] | | | [place] [address] | + + + | Home Phone [...] | [facility] | | | and [place]ana | + + + | Organization | [facility] [...] [place] | | | | | [place] [address] | | + + + + + | Hunter Jackson | ECON | [place] | | + + + + + | Wes Jackson | ECON | [place], [place] | | + + + + + | Oziel Jackson | ECON | [place], [place] | | + + + + + Care Team Providers + +------+ + | Care Admin Secretary Name | Role | Phone | [...] mixed (Primary Dx); | | | | [place], | [place], | Valvular heart | | | | [place] [address] | [place] [address] | disease; Murmur; | | | | [phone] | [phone] | Essential | | | | | [...] involving | | | | | | elem coronary | | | | | | artery of elem | | | | | | heart [...] cervical Cervical radiculopathy 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 Stress hyperglycemia [...] Interval:140 ms P Duration:140 ms P Horizontal [place]:-43 deg P Front [place]:60 deg Q Onset:514 ms QRSD Interval:78 ms QT Interval:384 ms QTcB:426 ms QTcF:412 ms QRS Horizontal [place]:3 deg QRS [place]:21 deg I-40 Horizontal [place]:-8 deg I-40 Front [place]:15 deg T-40 Horizontal [place]:-6 deg T-40 Front [place]:22 deg T Horizontal [place]:44 deg T Wave [place]:12 deg S-T Horizontal [place]:42 deg S-T Front [place]:22 deg Severity:- BORDERLINE ECG - INTERP:SINUS RHYTHM INTERP:PROBABLE LEFT ATRIAL ABNORMALITY Electronically signed by: PATRICK BURKETT 11-09-2016 13:17:14 LAB RESULTS reviewed during visit today primarily from [facility]: LIPID Lab Results Component Value Date CHOL [...] PLTEX 370 09/18/2016 I reviewed records from [facility] for office visit on 02/03/2017 w hich is summarized in the HPI. Above data and testing is reviewed this visit; testing below is historical data unless othe rwise specified. ASSESSMENT: 1. Coronary artery disease A. Seen at [facility] they had EKG and sent her home stating it was GERD B. Seen in the emergency room at [facility] for chest pain. She was schedule for stre ss test and discharged home. C. Stress Test 05/16/16, is maximal asymptomatic stress test, [facility] very poor function status, achieving [...] failure.She is in a class I of [place] [employer] f unctional class.on physical examination [...] this chart may have been created with Play2Focus voice recognition software. Occasi onal wrong-word or [...] STREETER | | | | | | [id number] | | | | | | | | +--------+---------+ + + + | 11/21/ | Office | Cardiology | Yesi, | | 2019 | Visit | | JOSE ALBERTO Linder [address] | | | | | | [place], | | | | | | [place] [address] | | | | | | [phone] | | | | | | | [...] pressures of lower extremities. | | | |[facility] | |Greater than 1.4: Calcification/vessel hardening, [...] + + | Coronary artery disease involving elem coronary artery of elem heart with unstable | | angina pectoris (HCC) | + + | Transient cerebral ischemia, unspecified type | + + documented in this encounter
--- OUTSIDE RECORDS SUMMARY | ~2019-04-12 | XMS | Encounter Summary ---
Demographics + + + | Address | [address] | | | [place] [address] | + + + | Home Phone [...] | Author | [facility] | | | and [place] | + + + | Organization | [facility] | [...] | | | | | [place] [address] | | + + + + + | Hunter Jackson | ECON | [place] | | + + + + + | Wes Jackson | ECON | [place], [place] | | + + + + + | Oziel Jackson | ECON | [place], [place] | | + + + + + Care Team Providers + +------+ + | Care Wedding Cake Designer Name | Role | Phone | [...] [facility] [place] | Ulysses Jensen, | [facility] arthritis | | 2015 | Visit | ORTHOPEDIC SURGERY | MD [address] [facility] | (Primary Dx) | | | | [address] [facility] | [place] [address] | | | | | [place] | [address] | | | | | [address] | | | | | | [phone] | | | +--------+---------+ + + + [...] STREET[place] | | | | | | [address] | | | | | | | | +--------+---------+ + + + | 11/21/ | Office | Cardiology | Yesi, | | | 2020 | Visit | | JOSE ALBERTO Linder [address] | | | | | | [place], | | | | | | [place] [address] | | | | | | [phone] | | | | | | | | +--------+---------+ + + + documented as of this encounter Visit Diagnoses + + | Diagnosis | + + | [facility] arthritis - Primary Unspecified arthropathy, hand | + + documented in this encounter"
--- OUTSIDE RECORDS SUMMARY | ~2019-04-12 | XMS | Encounter Summary ---
Demographics + + + | Address | [address] | | | [place] [address] | + + + | Home Phone [...] Author | [facility] | | | and [place]ana | + + + | Organization | [facility] | | [...] | | | | | [place] [address] | | + + + + + | Hunter Jackson | ECON | [place] | | + + + + + | Wes Jackson | ECON | [place], [place] | | + + + + + | Oziel Jackson | ECON | [place], [place] | | + + + + + Care Team Providers + +------+ + | Care Paper Products Inspector Name | Role | Phone | [...] + | 09/25/ | Office | [facility] | Rodolfo Cruz, | 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 I offered her a [...] | | | | | | [place] [address] | | | | | | [phone] | | | | | | | [...]
--- OUTSIDE RECORDS SUMMARY | ~2019-04-12 | XMS | Encounter Summary ---
Demographics + + + | Address | [address] | | | [place] [address] | + + + | Home Phone [...] Author | [facility] | | | and [place] | + + + | Organization | [facility] | | [...] + | Hunter Jackson | ECON | [place] | | + + + + + | Wes Jackson | ECON | [place], [place] | | + + + + + | Oziel Jackson | ECON | [place], [place] | | + + + + + Care Team Providers + +------+ + | Care Junior Network Administrator Name | Role | Phone [...] + | 09/29/ | Telephone | [facility] | Rodolfo Cruz, | Referral | | 2012 | | [facility] | [address] | (PreAuthorization) | | | | [address] | [place] [address] | | | | | [place] | [address] | | | | | [address] | | | | | | [phone] | | | +--------+ + + + [...] | | | | | | [place] [address] | | | | | | [phone] | | | | | | | | +--------+---------+ + + + documented as of this encounter Visit Diagnoses Not on filedocumented in this encounter"
--- OUTSIDE RECORDS SUMMARY | ~2019-04-12 | XMS | Encounter Summary ---
Demographics + + + | Address | [address] | | | [place] [address] | + + + | Home Phone [...] | Author | [facility] | | | and [place] | + + + | Organization | [facility] [...] | | | | | [place] [address] | | + + + + + | Hunter Jackson | ECON | [place] | | + + + + + | Wes Jackson | ECON | [place], [place] | | + + + + + | Oziel Jackson | ECON | [place], [place] | | + + + + + Care Team Providers + +------+ + | Care Sample Preparation Supervisor Name | Role | Phone | + +------+ + PCP | Unavailable | + +------+ + Encounter Details +--------+ + + + + | Date | Type | Department | Care Team | Description | +--------+ + + + + | 03/28/ | Hospital | [facility] | | | | 2009 | Encounter | MED CTR GENERIC OP | | | | | | CONV DEPT [address] | | | | | | [place], | | | | | | [place] [address] | | | | | | [phone] | | | +--------+ + + + [...] | | | | | | [place] [address] | | | | | | [phone] | | | | | | | | +--------+---------+ + + + documented as of this encounter Visit Diagnoses Not on filedocumented in this encounter"
--- OUTSIDE RECORDS SUMMARY | ~2019-04-12 | XMS | Encounter Summary ---
Demographics + + + | Address | [address] | | | [place] [address] | + + + | Home Phone [...] + | Author | [facility] | | | and [place] | + + + | Organization | [facility] [...] [place] | | | | | [place] [address] | | + + + + + | Hunter Jackson | ECON | [place] | | + + + + + | Wes Jackson | ECON | [place], [place] | | + + + + + | Oziel Jackson | ECON | [place], [place] | | + + + + + Care Team Providers + +------+ + | Care Hr Business Partner Consultant Name | Role | Phone | [...] + + | 07/07/ | Telephone | [facility] [place] | Yesi, | Other | | 2017 | | [address] | JOSE ALBERTO Linder [address] | | | | | [place], | [place], | | | | | [place] [address] | [place] [address] | | | | | [phone] | [phone] | | | | | | | [...] STREETER | | | | | | [address] | | | | | | | | +--------+---------+ + + + | 11/21/ | Office | Cardiology | Yesi | | | 2019 | Visit | | JOSE ALBERTO Linder [address] | | | | | | [place] | | | | | | [place] [address] | | | | | | [phone] | | | | | | | | +--------+---------+ + + + documented as of this encounter Visit Diagnoses Not on filedocumented in this encounter"
--- OUTSIDE RECORDS SUMMARY | ~2019-04-12 | XMS | Encounter Summary ---
Demographics + + + | Address | [address] | | | [place] [address] | + + + | Home Phone [...] Author | [facility] | | | and [place] | + + + | Organization | [facility] | [...] | | | | | [place] [address] | | + + + + + | Hunter Jackson | ECON | [place] | | + + + + + | Wes Jackson | ECON | [place], [place] | | + + + + + | Oziel Jackson | ECON | [place], [place] | | + + + + + Care Team Providers + +------+ + | Care Leadership Intern Name | Role | Phone | [...] | [address] | [address] | [address] | | | | [address] [place] | [place], | | | | | | [place] | [place] | | | | | | [address] | [address] | | | | | | Phone: | Phone: | | | | | | [phone] | [phone] | | | | | | Fax: | Fax: | | | | | | [phone] | [phone] | +--------+ + + + + + Encounter Details +--------+ + + + + | Date | Type | Department | Care Team | Description | +--------+ + + + + | 09/24/ | Orders Only | [facility] | Rodolfo Cruz, | Vertigo (Primary Dx) | | 2012 | | SURGERY [address] | [address] | | | | | [place], [place] | [place], [place] | | | | | [address] | [address] | | | | | [phone] | | | +--------+ + + + [...] | | | | | [place], [place] | | | | | | [address] | | | | | | | | +--------+---------+ + + + | 11/21/ | Office | Cardiology | Yesi, | | | 2019 | Visit | | JOSE ALBERTO Linder [address] | | | | | | [place], | | | | | | [place] [address] | | | | | | [phone] | | | | | | | [...]
--- OUTSIDE RECORDS SUMMARY | ~2019-04-12 | XMS | Encounter Summary ---
Demographics + + + | Address | [address] | | | [place] [address] | + + + | Home Phone [...] + | Author | [facility] | | | and [place] | + + + | Organization | [facility] | | | and [place] | + + + | Address | Unknown | + + + | Phone | Unavailable | + + + Support + + + + + | Name | Relationship | Address | Phone | + + + + + | Osmin Jackson | ECON | [address] | | | | | [place] [address] | | + + + + + | Hunter Jackson | ECON | [place] | | + + + + + | Wes Jackson | ECON | [place], [place] | | + + + + + | Oziel Jackson | ECON | [place], [place] | | + + + + + Care Team Providers + +------+ + | Care Solar Sales Manager Name | Role | Phone | [...] | SR | | | | | [phone] | | | +--------+ + + + [...] | | | | | | [place] [address] | | | | | | [phone] | | | | | | | [...]
--- OUTSIDE RECORDS SUMMARY | ~2019-04-12 | XMS | Encounter Summary ---
Demographics + + + | Address | [address] | | | [place] [address] | + + + | Home Phone [...] Author | [facility] | | | and [place] | + + + | Organization | [facility] [...] | | | | | [place] [address] | | + + + + + | Hunter Jackson | ECON | [place] | | + + + + + | Wes Jackson | ECON | [place], [place] | | + + + + + | Oziel Jackson | ECON | [place], [place] | | + + + + + Care Team Providers + +------+ + | Care Human Resource Manager Name | Role | Phone | + +------+ + PCP | Unavailable | + +------+ + Encounter Details +--------+ + + + + | Date | Type | Department | Care Team | Description | +--------+ + + + + | 08/23/ | Hospital | [facility] | | | | 2010 | Encounter | MED CTR XRAY [address] | | | | | | [place] | | | | | | [place] [address] | | | | | | [phone] | | | +--------+ + + + [...] STREETER | | | | | | [address] | | | | | | | | +--------+---------+ + + + | 11/21/ | Office | Cardiology | Yesi | | | 2019 | Visit | | JSOE ALBERTO Linder [address] | | | | | | [place], | | | | | | [place] [address] | | | | | | [phone] | | | | | | | [...] Performed At | + + + | [facility] Diagnostic Imaging Department | [facility] | | [address] [facility] | [facility] | | MR CERVICAL SPINE WITH AND [...] Transcribed Date/Time: 08/23/2010 | | | 17:51 Automobile Mechanic Helper: <Electronically Signed by Lauri oMreno | | | MD Karina> 08/23/10 2106 | | + + + + ---------+ | Procedure Note | + ---------+ | Remington, Rad Conversion - 06/18/2013 2:42 PM [facility] | | Diagnostic Imaging Department [address] [place] [address] | | MR CERVICAL SPINE WITH AND [...] 17:16 Transcribed Date/Time: | | 08/23/2010 17:51 Automobile Mechanic Helper: <Electronically Signed by Lauri Collins MD> | [...] 17:16 | |Transcribed Date/Time: 08/23/2010 17:51 | |Automobile Mechanic Helper: | |<Electronically Signed by Lauri Collins MD> [...]
--- OUTSIDE RECORDS SUMMARY | ~2019-04-12 | XMS | Encounter Summary ---
Demographics + + + | Address | [address] | | | [place] [address] | + + + | Home Phone [...] | Author | [facility] | | | and [place] | + + + | Organization | [facility] | | | and [place] | + + + | Address | Unknown | + + + | Phone | Unavailable | + + + Support + + + + + | Name | Relationship | Address | Phone | + + + + + | Osmin Jackson | ECON | [address] | | | | | [place] [address] | | + + + + + | Hunter Jackson | ECON | [place] | | + + + + + | Wes Jackson | ECON | [place], [place] | | + + + + + | Oziel Jackson | ECON | [place], [place] | | + + + + + Care Team Providers + +------+ + | Care Patient Biller Name | Role | Phone | + [...] + + | 06/02/ | Telephone | [facility] | Harsha Selby | Appointment (post | | 2017 | | PHYSIATRY [address] | T[address] | injection) | | | | [place], | [address] | | | | | [place] [address] | [id number] | | | | | [phone] | | | +--------+ + + + [...] STREETER | | | | | | [address] | | | | | | | | +--------+---------+ + + + | 11/21/ | Office | Cardiology | Yesi, | | | 2019 | Visit | | JOSE ALBERTO Linder [address] | | | | | | [place] | | | | | | [place] [address] | | | | | | [phone] | | | | | | | | +--------+---------+ + + + documented as of this encounter Visit Diagnoses Not on filedocumented in this encounter"
--- OUTSIDE RECORDS SUMMARY | ~2019-04-12 | XMS | Encounter Summary ---
Demographics + + + | Address | [address] | | | [place] [address] | + + + | Home Phone [...] Author | [facility] | | | and [place] | + + + | Organization | [facility] | | | and [place] | + + + | Address | Unknown | + + + | Phone | Unavailable | + + + Support + + + + + | Name | Relationship | Address | Phone | + + + + + | Osmin Jackson | ECON | [address] | | | | | [place] [address] | | + + + + + | Hunter Jackson | ECON | [place] | | + + + + + | Wes Jackson | ECON | [place], [place] | | + + + + + | Oziel Jackson | ECON | [place], [place] | | + + + + + Care Team Providers + +------+ + | Care Director Of Field Service Name | Role | Phone | [...] | 09/20/ | Refill | [facility] | Rodolfo Cruz, | Medication Refill | | 2015 | | MEDICINE [address] | MD [address] | | | | | [place] | [place] [address] | | | | | [place] [address] | [address] | | | | | [phone] | | | +--------+--------+ + + + [...] STREETER | | | | | | [address] | | | | | | | | +--------+---------+ + + + | 11/21/ | Office | Cardiology | Yesi, | | | 2019 | Visit | | JOSE ALBERTO Linder [address] | | | | | | [place] | | | | | | [place] [address] | | | | | | [phone] | | | | | | | | +--------+---------+ + + + documented as of this encounter Visit Diagnoses Not on filedocumented in this encounter"
--- OUTSIDE RECORDS SUMMARY | ~2019-04-12 | XMS | Encounter Summary ---
Demographics + + + | Address | [address] | | | [place] [address] | + + + | Home Phone [...] | Author | [facility] | | | and [place] | + + + | Organization | [facility] | [...] | | | | | [place] [address] | | + + + + + | Hunter Jackson | ECON | [place] | | + + + + + | Wes Jackson | ECON | [place], [place] | | + + + + + | Oziel Jackson | ECON | [place], [place] | | + + + + + Care Team Providers + +------+ + | Care Field Enumerator Name | Role | Phone | + [...] | [address] | [place] | Dx); [facility] | | | | [place] | [address] | | | | | [address] | | | | | | [phone] | | | +--------+---------+ + + + [...] | | | | | | [place] [address] | | | | | | [phone] | | | | | | | [...]
--- OUTSIDE RECORDS SUMMARY | ~2019-04-12 | XMS | Encounter Summary ---
Demographics + + + | Address | [address] | | | [place] [address] | + + + | Home Phone [...] + | Author | [facility] | | | and [place] | + + + | Organization | [facility] | | | and [place] | + + + | Address | Unknown | + + + | Phone | Unavailable | + + + Support + + + + + | Name | Relationship | Address | Phone | + + + + + | Osmin Jackson | ECON | [address] | | | | | [place] [address] | | + + + + + | Hunter Jackson | ECON | [place] | | + + + + + | Wes Jackson | ECON | [place], [place] | | + + + + + | Oziel Jackson | ECON | [place], [place] | | + + + + + Care Team Providers + +------+ + | Care Food And Beverage Attendant Name | Role | Phone | [...] + + | 10/22/ | Office | [facility] | Rodolfo Cruz, | Thoracic sprain and | | 2013 | Visit | MEDICINE [address] [place] [address] | MD [address] | strain, initial | | | | Street [place] | [place], [place] | encounter (Primary | | | | [place] [address] | [address] | Dx); Thoracic sprain | | | | [phone] | | and strain, | | | [...] STREETER | | | | | | [address] | | | | | | | | +--------+---------+ + + + | 11/21/ | Office | Cardiology | Yesi, | | | 2019 | Visit | | JOSE ALBERTO Linder [address] | | | | | | [place] | | | | | | [place] [address] | | | | | | [phone] | | | | | | | [...] + | MISCELLANEOUS LAB | | | [phone] | + +---------+ + + | MISCELANIOUS LAB | | | [phone] | + +---------+ + + Urinalysis with [...] - 1.030 | [facility] | | | [place] | | | [facility] | | [...] [address] | [place] | [phone] | | [facility] | | [address] | | | - LABORATORY | | | | + + + + + | [facility] | [address] | [place] | | | [facility] | | [address] | | | - LABORATORY | | [...] + | [facility] | [address] | [place] | [phone] | | [facility] | | [address] | | | - LABORATORY | | | | + + + + + | [facility] | [address] | [place] | | | [facility] | | [address] | | | - LABORATORY | | [...] | | | mg/dL | [facility] | | | | | | MEDICAL | | | | | | CENTER - | | | | | | LABORATORY | | + + + + + + | eGFR if not | >60Comment: GLOMERULAR | >=60 | [facility] | | | | FILTRATION | mL/min/1.73m2 | [facility] | | | ESTONIAN | RATE,ESTIMATED | | MEDICAL | | | | mL/min/1.59x9Edpp than | | CENTER - | | [...] | | | mg/dL | [facility] | | | | | [...] + | [facility] [facility] | [address] | [place], [place] | [phone] | | [facility] | | [address] | | | - LABORATORY | | | | + + + + + | [facility] [facility] | [address] | [place] | | | [facility] | | [address] | | | - LABORATORY | | [...] + | [facility] | [address] | [place], [place] | [phone] | | [facility] | | [address] | | | - LABORATORY | | | | + + + + + | [facility] | [address] | [place], [place] | | | [facility] | | [address] | | | - LABORATORY | | | | + + + + + documented in this encounter Visit Diagnoses + + | Diagnosis | + + | Thoracic sprain and strain, initial encounter - Primary | + + | Thoracic sprain and strain, subsequent encounter | + + documented in this encounter
--- OUTSIDE RECORDS SUMMARY | ~2019-04-12 | XMS | Encounter Summary ---
Demographics + + + | Address | [address] | | | [place] [address] | + + + | Home Phone [...] Author | [facility] | | | and [place] | + + + | Organization | [facility] | [...] | | | | | [place] [address] | | + + + + + | Hunter Jackson | ECON | [place] | | + + + + + | Wes Jackson | ECON | [place], [place] | | + + + + + | Oziel Jackson | ECON | [place], [place] | | + + + + + Care Team Providers + +------+ + | Care Regional Transfer Liaison Name | Role | Phone | + +------+ + | Rodolfo Cruz MD | PCP | | + +------+ + Reason for Visit +--------+ + | Reason | Comments | +--------+ + | Other | | +--------+ + Encounter Details +--------+--------+ + + + | Date | Type | Department | Care Team | Description | +--------+--------+ + + + | 01/24/ | Refill | [facility] | Rodolfo Cruz, | Other | | 2014 | | MEDICINE Danny Hinson | MD [address] | | | | | [place] | [place] [address] | | | | | [place] [address] | [address] | | | | | [phone] | | | +--------+--------+ + + + [...] STREETER | | | | | | [address] | | | | | | | | +--------+---------+ + + + | 11/21/ | Office | Cardiology | Yesi, | | | 2019 | Visit | | JOSE ALBERTO Linder [address] | | | | | | [place] | | | | | | [place] [address] | | | | | | [phone] | | | | | | | | +--------+---------+ + + + documented as of this encounter Visit Diagnoses + + | Diagnosis | + + | Pain - Primary Generalized pain | + + documented in this encounter"
--- OUTSIDE RECORDS SUMMARY | ~2019-04-12 | XMS | Encounter Summary ---
Demographics + + + | Address | [address] | | | [place] [address] | + + + | Home Phone [...] | Author | [facility] | | | and [place] | + + + | Organization | [facility] [...] | | | | | [place] [address] | | + + + + + | Hunter Jackson | ECON | [place] | | + + + + + | Wes Jackson | ECON | [place], [place] | | + + + + + | Oziel Jackson | ECON | [place], [place] | | + + + + + Care Team Providers + +------+ + | Care Patch Sander Name | Role | Phone | [...] 2013 | | SLEEP DISORDER [address] | OPTOMECHANICAL TECHNICIAN | | | | | [address] [place] | | | | | | [place] [address] | | | | | | [phone] | | | +--------+ + + + [...] STREETER | | | | | | [address] | | | | | | | | +--------+---------+ + + + | 11/21/ | Office | Cardiology | Yesi, | | | 2020 | Visit | | JOSE ALBERTO Linder [address] | | | | | | [place], | | | | | | [place] [address] | | | | | | [phone] | | | | | | | | +--------+---------+ + + + documented as of this encounter Visit Diagnoses Not on filedocumented in this encounter"
--- OUTSIDE RECORDS SUMMARY | ~2019-04-12 | XMS | Encounter Summary ---
Demographics + + + | Address | [address] | | | [place] [address] | + + + | Home Phone [...] | Author | [facility] | | | and [place] | + + + | Organization | [facility] [...] [place] | | | | | [place] [address] | | + + + + + | Hunter Jackson | ECON | [place] | | + + + + + | Wes Jackson | ECON | [place], [place] | | + + + + + | Oziel Jackson | ECON | [place], [place] | | + + + + + Care Team Providers + +------+ + | Care Cloth Drier Name | Role | Phone | + +------+ + | Kellie Gunderson | PCP | | + +------+ + Encounter Details +--------+ + + + + | Date | Type | Department | Care Team | Description | +--------+ + + + + | 07/02/ | Hospital | [facility] | [place], | Coronary artery | | 2018 | Encounter | MED CTR ULTRASOUND | JOSE ALBERTO Linder [address] | disease involving | | | | [address] [place] | [place], | ely shoshone coronary | | | | [place], [place] | [place] [address] | artery of ely shoshone | | | | [address] | [phone] | heart with unstable | | | | [phone] | | angina pectoris | | | | | Bertha Dewitt | ([facility]) | | | | | M, Technologist [...] | | | | | | [place] [address] | | | | | | [phone] | | | | | | | [...] the | | | | PST | ely shoshone coronary | results section. | | | | | artery of ely shoshone | | | | | | heart [...] pressures of lower | | | extremities. [facility] Greater than 1.4: | | | [...] pressures of lower extremities. | | | |[facility] | |Greater than 1.4: Calcification/vessel hardening, [...] + + | Coronary artery disease involving ely shoshone coronary artery of ely shoshone heart with unstable | | angina pectoris (HCC) | + + documented in this encounter"
--- OUTSIDE RECORDS SUMMARY | ~2019-04-12 | XMS | Encounter Summary ---
Demographics + + + | Address | [address] | | | [place] [address] | + + + | Home Phone [...] + | Author | [facility] | | | and [place] | + + + | Organization | [facility] | [...] | | | | | [place] [address] | | + + + + + | Hunter Jackson | ECON | [place] | | + + + + + | Wes Jackson | ECON | [place], [place] | | + + + + + | Oziel Jackson | ECON | [place], [place] | | + + + + + Care Team Providers + +------+ + | Care Manager Biologics Name | Role | Phone | + +------+ + | Rodolfo Cruz MD | PCP | | + +------+ + Reason for Visit +--------+ + | Reason | Comments | +--------+ + | Other | | +--------+ + Encounter Details +--------+ + + + + | Date | Type | Department | Care Team | Description | +--------+ + + + + | 11/04/ | Telephone | [facility] | Rodolfo Cruz, | Other | | 2014 | | MEDICINE [facility] [address] | MD [address] | | | | | [place] | [place] | | | | | [place] [address] | [address] | | | | | [phone] | | | +--------+ + + + [...] STREETER | | | | | | [address] | | | | | | | | +--------+---------+ + + + | 11/21/ | Office | Cardiology | Yesi, | | | 2019 | Visit | | JOSE ALBERTO Linder [address] | | | | | | [place] | | | | | | [place] [address] | | | | | | [phone] | | | | | | | | +--------+---------+ + + + documented as of this encounter Visit Diagnoses Not on filedocumented in this encounter"
--- OUTSIDE RECORDS SUMMARY | ~2019-04-12 | XMS | Encounter Summary ---
Demographics + + + | Address | [address] | | | [place] [address] | + + + | Home Phone [...] | Author | [facility] | | | and [place] | + + + | Organization | [facility] | | [...] [place] | | | | | [place] [address] | | + + + + + | Hunter Jackson | ECON | [place] | | + + + + + | Wes Jackson | ECON | [place], [place] | | + + + + + | Oziel Jackson | ECON | [place], [place] | | + + + + + Care Team Providers + +------+ + | Care Motor Assembler Name | Role | Phone | [...] | Therapy | Cervical | Bal, | [place] | | | Required | | radiculopath | Harsha Moreno MD | PHYSICAL | | | | | y DDD | [address] | THERAPY - | | | | | (degenerativ | [place] | [place] | | | | | e disc | [facility] [place] | [address] | | | | | disease), | [address] | [facility] | | | | | cervical | Phone: | 15 | | | | | [place] | [phone] | [place], [place] | | | | | stenosis of | Fax: | [address] | | | | | cervical | [phone] | Phone: | | | | | region | | [phone] | | | | | Stenosis of | | Fax: | | | | | cervical | | [phone] | | | | | spine | [...] [address] | radiculopathy | | | | Barnard Loomis, | [address] [place] | (Primary Dx); DDD | | | | [place] [address] | [address] | (degenerative disc | | | | [phone] | | disease), cervical; | | | [...] | | | | | | [place] [address] | | | | | | [phone] | | | | | | | [...]
--- OUTSIDE RECORDS SUMMARY | ~2019-04-12 | XMS | Encounter Summary ---
Demographics + + + | Address | [address] | | | [place] [address] | + + + | Home Phone [...] Author | [facility] | | | and [place] | + + + | Organization | [facility] [...] | | | | | [place] [address] | | + + + + + | Hunter Jackson | ECON | [place] | | + + + + + | Wes Jackson | ECON | [place], [place] | | + + + + + | Oziel Jackson | ECON | [place], [place] | | + + + + + Care Team Providers + +------+ + | Care Snow Groomer Name | Role | Phone | + [...] | 01/26/ | Refill | [facility] | Rodolfo Cruz, | Medication Refill | | 2015 | | MEDICINE [address] | MD [address] | | | | | [place] | [place] [address] | | | | | [place] [address] | [address] | | | | | [phone] | | | +--------+--------+ + + + [...] | | | | | | [place] [address] | | | | | | [phone] | | | | | | | | +--------+---------+ + + + documented as of this encounter Visit Diagnoses Not on filedocumented in this encounter"
--- OUTSIDE RECORDS SUMMARY | ~2019-04-12 | XMS | Encounter Summary ---
Demographics + + + | Address | [address] | | | [place] [address] | + + + | Home Phone [...] | Author | [facility] | | | and [place] | + + + | Organization | [facility] | [...] | | | | | [place] [address] | | + + + + + | Hunter Jackson | ECON | [place] | | + + + + + | Wes Jackson | ECON | [place], [place] | | + + + + + | Oziel Jackson | ECON | [place], [place] | | + + + + + Care Team Providers + +------+ + | Care Commissary Worker Name | Role | Phone | [...] | | | | | [place] [address] | [address] | | | | | [phone] | | | +--------+--------+ + + + [...] STREETER | | | | | | [address] | | | | | | | | +--------+---------+ + + + | 11/21/ | Office | Cardiology | Yesi, | | | 2019 | Visit | | JOSE ALBERTO Linder [address] | | | | | | [place] | | | | | | [place] [address] | | | | | | [phone] | | | | | | | | +--------+---------+ + + + documented as of this encounter Visit Diagnoses + + | Diagnosis | + + | Pain - Primary Generalized pain | + + documented in this encounter"
--- OUTSIDE RECORDS SUMMARY | ~2019-04-12 | XMS | Encounter Summary ---
Demographics + + + | Address | [address] | | | [place] [address] | + + + | Home Phone [...] Author | [facility] | | | and [place] | + + + | Organization | [facility] | | | and [place] | + + + | Address | Unknown | + + + | Phone | Unavailable | + + + Support + + + + + | Name | Relationship | Address | Phone | + + + + + | Osmin Jackson | ECON | [address] | | | | | [place] [address] | | + + + + + | Hunter Jackson | ECON | [place] | | + + + + + | Wes Jackson | ECON | [place], [place] | | + + + + + | Oziel Jackson | ECON | [place], [place] | | + + + + + Care Team Providers + +------+ + | Care Dentofacial Orthopedics Dentist Name | Role | Phone | + [...] | [address] | | | | | [address] | | | | | | [phone] | | | +--------+--------+ + + + [...] | | | | | | [place] [address] | | | | | | [phone] | | | | | | | | +--------+---------+ + + + documented as of this encounter Visit Diagnoses Not on filedocumented in this encounter"
--- OUTSIDE RECORDS SUMMARY | ~2019-04-12 | XMS | Encounter Summary ---
Demographics + + + | Address | [address] | | | [place] [address] | + + + | Home Phone [...] Author | [facility] | | | and [place] | + + + | Organization | [facility] | | [...] | | | | | [place] [address] | | + + + + + | Hunter Jackson | ECON | [place] | | + + + + + | Wes Jackson | ECON | [place], [place] | | + + + + + | Oziel Jackson | ECON | [place], [place] | | + + + + + Care Team Providers + +------+ + | Care Terra Cotta Roofer Name | Role | Phone | + [...] + | 08/10/ | Telephone | [facility] | Rodolfo Cruz, | Appointment (CT ) | | 2015 | | MEDICINE [address] [place] [address] | MD [address] | | | | | [place] | [place] [address] | | | | | [place] [address] | [address] | | | | | [phone] | | | +--------+ + + + [...] STREETER | | | | | | [address] | | | | | | | | +--------+---------+ + + + | 11/21/ | Office | Cardiology | Yesi, | | | 2019 | Visit | | JOSE ALBERTO Linder [address] | | | | | | [place] | | | | | | [place] [address] | | | | | | [phone] | | | | | | | | +--------+---------+ + + + documented as of this encounter Visit Diagnoses Not on filedocumented in this encounter"
--- OUTSIDE RECORDS SUMMARY | ~2019-04-12 | XMS | Encounter Summary ---
Demographics + + + | Address | [address] | | | [place] [address] | + + + | Home Phone [...] Author | [facility] | | | and Ohana | + + + | Organization | [facility] | [...] | | | | | [place] [address] | | + + + + + | Hunter Jackson | ECON | [place] | | + + + + + | Wes Jackson | ECON | [place], [place] | | + + + + + | Oziel Jackson | ECON | [place], [place] | | + + + + + Care Team Providers + +------+ + | Care Mold Closer Helper Name | Role | Phone | [...] | | | | | | [place] | NANCY KRISHNAN B | | | | | | [place] | [place] | | | | | | [address] | [address] Phone: | | | | | | Phone: | [phone] | | | | | | [phone] | Fax: | | | | | | Fax: | [phone] | | | | | | [phone] | | +--------+ + + + + + Reason for Visit + + + | Reason | Comments | + + + | Follow-up | | + + + Encounter Details +--------+---------+ + + + | Date | Type | Department | Care Team | Description | +--------+---------+ + + + | 09/03/ | Office | [facility] | Rodolfo Cruz, | Hypertension | | 2013 | Visit | MEDICINE [place] | [address] | (Primary Dx); Right | | | | [address] | [place] | ankle pain; | | | | [place] | [address] | Gastroenteritis; | | | | [address] | | Vertigo | | | | [phone] | | | +--------+---------+ + + + [...] | | | | | | [place] [address] | | | | | | [phone] | | | | | | | [...] + | [facility] | [address] | [place], [place] | [phone] | | [facility] | | [address] | | | - LABORATORY | | | | + + + + + | [facility] | [address] | [place], [place] | | | [facility] | | [address] | | | - LABORATORY | | [...] | | Basophils | | | [facility] | | | | | | [...] [address] | [place] | [phone] | | [facility] | | [address] | | | - LABORATORY | | | | + + + + + | [facility] | [address] | [place] | | | [facility] | | [address] | | | - LABORATORY | | [...] | METHOD [address] | | | [facility] | | [...] - 1.030 | [facility] | | | [place] | | | [facility] | | [...] + | [facility] | [address] | [place] | [phone] | | [facility] | | [address] | | | - LABORATORY | | | | + + + + + | [facility] | [address] | [place], [place] | | | [facility] | | [address] | | | - LABORATORY | | [...]
--- OUTSIDE RECORDS SUMMARY | ~2019-04-12 | XMS | Encounter Summary ---
Demographics + + + | Address | [address] | | | [place] [address] | + + + | Home Phone [...] | Author | [facility] | | | and [place]ana | + + + | Organization | [facility] [...] | | | | | [place] [address] | | + + + + + | Hunter Jackson | ECON | [place] | | + + + + + | Wes Jackson | ECON | [place], [place] | | + + + + + | Oziel Jackson | ECON | [place], [place] | | + + + + + Care Team Providers + +------+ + | Care Slicing Machine Tender Name | Role | Phone | + +------+ + | Rodolfo Cruz MD | PCP | | + +------+ + Encounter Details +--------+ + + + + | Date | Type | Department | Care Team | Description | +--------+ + + + + | 05/23/ | Hospital | [facility] | [place], | Hypothyroidism, | | 2016 | Encounter | MED CTR LABORATORY | JOSE ALBERTO Linder [address] | unspecified | | | | [address] [place] | [place], | hypothyroidism type | | | | [place], [place] | [place] [address] | | | | | [address] | [phone] | | | | | [phone] | | | +--------+ + + + [...] | | | | | | [place] [address] | | | | | | [phone] | | | | | | | [...] + | [facility] | [address] | [place] | [phone] | | [facility] | | [address] | | | - LABORATORY | | [...] + | [facility] | [address] | [place] | [phone] | | [facility] | | [address] | | | - LABORATORY | | | | + + + + + documented in this encounter Visit Diagnoses + + | Diagnosis | + + | Hypothyroidism, unspecified hypothyroidism type | + + documented in this encounter"
--- OUTSIDE RECORDS SUMMARY | ~2019-04-12 | XMS | Encounter Summary ---
Demographics + + + | Address | [address] | | | [place] [address] | + + + | Home Phone [...] | Author | [facility] | | | and [place]ana | + + + | Organization | [facility] | [...] | | | | | [place] [address] | | + + + + + | Hunter Jackson | ECON | [place] | | + + + + + | Wes Jackson | ECON | [place], [place] | | + + + + + | Oziel Jackson | ECON | [place], [place] | | + + + + + Care Team Providers + +------+ + | Care Family Service Assistant Name | Role | Phone | [...] | (Primary Dx) | | | | [address] | [address] | | | | | [phone] | | | +--------+---------+ + + + [...] d strong odors are examples of irritants. [id number] [employer]. [address] [place], [place] [address]. All righ ts reserved. This information is [...] severe itching of the eyes or mouth 7857-0288 [employer]. [address] [place] [address]. All righ ts reserved. This information is [...] nasal congestion and mucus producti on. Some szto-scg-bsutxlr allergy medicines are discussed. Steroid nasal sprays likewise d iscussed. Saltwater gargles. This note was dictated using [employer] voice recognition software. Occasional wrong- word or [...] STREETER | | | | | | [address] | | | | | | | | +--------+---------+ + + + | 11/21/ | Office | Cardiology | Yesi, | | | 2019 | Visit | | JOSE ALBERTO Linder [address] | | | | | | [place], | | | | | | [place] [address] | | | | | | [phone] | | | | | | | | +--------+---------+ + + + documented as of this encounter Visit Diagnoses + + | Diagnosis | + + | Other seasonal allergic rhinitis - Primary | + + documented in this encounter
--- OUTSIDE RECORDS SUMMARY | ~2019-04-12 | XMS | Encounter Summary ---
Demographics + + + | Address | [address] | | | [place] [address] | + + + | Home Phone [...] [facility] | | | and Ohana | + + + | Organization | [facility] | | [...] S[place] | | | | | [place] [address] | | + + + + + | Hunter Jackson | ECON | [place] | | + + + + + | Wes Jackson | ECON | [place], [place] | | + + + + + | Oziel Jackson | ECON | [place], [place] | | + + + + + Care Team Providers + +------+ + | Care Consumer Recruiter Name | Role | Phone | [...] | | | atherosclero | | [address] | | | | | sis of | | [place], | | | | | unspecified | | [place] [address] | | | | | type of | | Phone: | | | | | vessel, | | [phone] | | | | | [place] | | Fax: | | | | | graft | | [phone] | | | | | Coronary | | | | | | | atherosclero | | | | | | | sis of | | | | | | | unspecified | | | | | | | type of | | | | | | | vessel, | | | | | | | [place] or | | | | | | | graft | | | | | | | Procedures | | | | | | | [place] ENDOSCOPY | | | | | | | | | | | | | | W/VIDEO-ASST | | | | | | | VEIN | | | | | | | HARVEST,CABG | | | | | | | SD CABG, | | | | | | | ARTERY-VEIN, | | | | | | | FOUR SD | | | | | | | CABG, | | | | | | | ARTERIAL, | | | | | | | SINGLE | | | +--------+--------+ + + + + Encounter Details +--------+ + + + + | Date | Type | Department | Care Team | Description | +--------+ + + + + | 10/31/ | Hospital | [facility] | Amna Benavides, | | | 2017 | Encounter | HEART MED CTR | PA-C [address] | | | | | LABORATORY [address] | [address] [place], [place] | | | | | [address] [place] | [address] | | | | | [address] | | | | | | [phone] | | | +--------+ + + + [...] STREETER | | | | | | [address] | | | | | | | | +--------+---------+ + + + | 11/21/ | Office | Cardiology | Yesi, | | | 2019 | Visit | | JOSE ALBERTO Linder [address] | | | | | | [place], | | | | | | [place] [address] | | | | | | [phone] | | | | | | | | +--------+---------+ + + + documented as of this encounter Visit Diagnoses Not on filedocumented in this encounter"
--- OUTSIDE RECORDS SUMMARY | ~2019-04-12 | XMS | Encounter Summary ---
Demographics + + + | Address | [address] | | | [place] [address] | + + + | Home Phone [...] Author | [facility] | | | and Ohana | + + + | Organization | [facility] [...] | | | | | [place] [address] | | + + + + + | Hunter Jackson | ECON | [place] | | + + + + + | Wes Jackson | ECON | [place], [place] | | + + + + + | Oziel Jackson | ECON | [place], [place] | | + + + + + Care Team Providers + +------+ + | Care Aquaculturist Name | Role | Phone | + +------+ + PCP | Unavailable | + +------+ + Encounter Details +--------+ + + + + | Date | Type | Department | Care Team | Description | +--------+ + + + + | 01/09/ | Hospital | [facility] | | | | 1998 | Encounter | MED CTR GENERIC OP | | | | | | CONV DEPT [address] | | | | | | [place], | | | | | | [place] [address] | | | | | | [phone] | | | +--------+ + + + [...] | | | | | | [place] [address] | | | | | | [phone] | | | | | | | | +--------+---------+ + + + documented as of this encounter Visit Diagnoses Not on filedocumented in this encounter"
--- OUTSIDE RECORDS SUMMARY | ~2019-04-12 | XMS | Encounter Summary ---
Demographics + + + | Address | [address] | | | [place] [address] | + + + | Home Phone [...] | [facility] | | | and [place]ana | + + + | Organization | [facility] | | [...] | | | | | [place] [address] | | + + + + + | Hunter Jackson | ECON | [place] | | + + + + + | Wes Jackson | ECON | [employer], [place] | | + + + + + | Oziel Jackson | ECON | [place], [place] | | + + + + + Care Team Providers + +------+ + | Care Ropeman Name | Role | Phone | + [...] + + | 10/25/ | Office | [facility] | Rodolfo Cruz, | Essential | | 2015 | Visit | MEDICINE [facility] | MD [address] | hypertension | | | | Street [place] | [place] | (Primary Dx); | | | | [place] [address] | [address] | Depression with | | | | [phone] | | anxiety; Other | | | [...] 06/05/2010 and no changes required: Born in [facility] since 1965 Marital status: Children: 6, 5 living, 10 grandchildren 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 | [place] | [phone] | | [facility] | | [address] | | | - LABORATORY | | [...] [address] | [place] | [phone] | | [facility] | | [address] | | | - LABORATORY | | [...]
--- OUTSIDE RECORDS SUMMARY | ~2019-04-12 | XMS | Encounter Summary ---
Demographics + + + | Address | [address] | | | [place] [address] | + + + | Home Phone [...] [place] | | | | | [place] [address] | | + + + + + | Hunter Jackson | ECON | [place] | | + + + + + | Wes Jackson | ECON | [place], [place] | | + + + + + | Oziel Jackson | ECON | [place], [place] | | + + + + + Care Team Providers + +------+ + | Care Supplier Quality Manager Name | Role | Phone | [...] | JOSE ALBERTO Linder | [address] | | | | | ia, mixed | [address] | [place], | | | | | Chest pain, | [place] | [place] | | | | | unspecified | [place], | [address] | | | | | type | [place] | Phone: | | | | | Procedures | [address] | [phone] | | | | | [place] Nuclear | Phone: | Fax: | | | | | Stress Test | [phone] | [phone] | | | | | (Vasodilator | Fax: | | | | | | ) CHG | [phone] | | | | | | MYOCARDIAL | | | | | | | SPECT | | | | | | | MULTIPLE | | | | | | | STUDIES WY | | | | | | | CV STRS TST | | | | | | | XERS&/OR RX | | | | | | | CONT ECG W/O | | | | | | | I&R W[place] | | | | | | | [...] + + | 07/16/ | Hospital | [facility] | [place], | Hyperlipidemia, | | 2017 | Encounter | MED CTR NUCLEAR | JOSE ALBERTO Linder [address] | mixed; Chest pain, | | | | MEDICINE [address] | [place], | unspecified type | | | | [place] | [place] [address] | | | | | [place] [address] | [phone] | | | | | [phone] | | | | | | | Electronic Test TechnicianRenetta | | +--------+ + + + [...] | | | | 7 | | [address]) | | | | | | [...] STREETER | | | | | | [address] | | | | | | | | +--------+---------+ + + + | 11/21/ | Office | Cardiology | Yesi, | | | 2019 | Visit | | JOSE ALBERTO Linder [address] | | | | | | [place], | | | | | | [place] [address] | | | | | | [phone] | | | | | | | [...] wall thickness. Preserved left ventricular systolic | [facility] | | function. LVEF by gated SPECT 75%. Signed by: Irina | - IMAGING | | MD M[facility] 07/16/2016, 13:12 | | + + + + + + | Narrative | Performed At | + + + | NUCLEAR MEDICINE STRESS TEST REPORT | [facility] | | Patient Name: Soumya Jackson Study Date: 07/16/2016 Primary Care | [facility] | | Provider: FLORA Morgan : 1935 Age: | [facility] | | 80 y.o. [...] [address] | [place] | [phone] | | [facility] | | [address] | | | - IMAGING | | [...]
--- OUTSIDE RECORDS SUMMARY | ~2019-04-12 | XMS | Encounter Summary ---
Demographics + + + | Address | [address] | | | [place] [address] | + + + | Home Phone [...] | [facility] | | | and Ohana | + + + | Organization | [facility] | | [...] | | | | | [place] [address] | | + + + + + | Hunter Jackson | ECON | [place] | | + + + + + | Wes Jackson | ECON | [place], [place] | | + + + + + | Oziel Jackson | ECON | [place], [place] | | + + + + + Care Team Providers + +------+ + | Care Marketing Production Coordinator Name | Role | Phone | [...] | | | | | | [place] | [facility] | | | | | | [address] | [place] | | | | | | Phone: | [address] Phone: | | | | | | [phone] | [phone] | | | | | | Fax: | Fax: | | | | | | [phone] | [phone] | +--------+ + + + + + [...] + + | 07/07/ | Office | [facility] | Rodolfo Cruz, | Hyperproteinemia | | 2015 | Visit | MEDICINE [address] [place] [address] | MD [address] | (Primary Dx); Pain; | | | | Street [place] | [place], [place] | Hypothyroidism | | | | [place] [address] | [address] | | | | | [phone] | | | +--------+---------+ + + + [...] and no changes required: Born in [place] since 1965 Marital status: Children: 6, 5 living, 10 grandchildren 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 Hyperproteinemia * [facility] - AMB Referral 2. [...] W | | | | | | [address] [place], | | | | | | [place] [address] | | | | | | [phone] | | | | | | | [...] + | [facility] | [address] | [place] | [phone] | | [facility] | | [address] | | | - LABORATORY | | [...] + + | Performing | Address | City[facility] | Phone Number | | Organization | | | | + + + + + | [facility] | [address] | [place], [place] | [phone] | | [facility] | | [address] | | | - IMAGING | | [...] to upper thoracic spine, similar to | [facility] | | the CT from 02/22/2014. [...] ST. | [address] | [place], [place] | [phone] | | [facility] | | [address] | | | - IMAGING | | [...]
--- OUTSIDE RECORDS SUMMARY | ~2019-04-12 | XMS | Encounter Summary ---
Demographics + + + | Address | [address] | | | [place] [address] | + + + | Home Phone [...] | Author | [facility] | | | and [place]ana | + + + | Organization | [facility] | [...] | | | | | [place] [address] | | + + + + + | Hunter Jackson | ECON | [place] | | + + + + + | Wes Jackson | ECON | [place], [place] | | + + + + + | Oziel Jackson | ECON | [place], [place] | | + + + + + Care Team Providers + +------+ + | Care Ironer Hand Name | Role | Phone | [...] Pulmonary | Rodolfo Reilly MD | [address] | | | | | nodules | [address] | [place], | | | | | Procedures | [place] | [place] [address] | | | | | CT Chest w | [place], [place] | Phone: | | | | | Contrast | [address] | [phone] | | | | | AFTER | Phone: | Fax: | | | | | 02/17/15 | [phone] | [phone] | | | | | | Fax: | | | | | | | [phone] | | +--------+--------+ + + + + [...] Pulmonary | Rodolfo Reilly MD | [address] | | | | | nodules | [address] | [place], | | | | | Procedures | [place] | [place] [address] | | | | | CT Chest w | [place], [place] | Phone: | | | | | Contrast | [address] | [phone] | | | | | AFTER | Phone: | Fax: | | | | | 02/17/15 | [phone] | [phone] | | | | | | Fax: | | | | | | | [phone] | | +--------+--------+ + + + + Encounter Details +--------+ + + + + | Date | Type | Department | Care Team | Description | +--------+ + + + + | 03/23/ | Hospital | [facility] | Rodolfo Cruz, | Pulmonary nodules | | 2015 | Encounter | MED CTR CT [address] | MD [address] | | | | | [place], | [place], [place] | | | | | [place] [address] | [address] | | | | | [phone] | | | | | | | Provider Not, In | | | | | | System [facility] | | | | | | Health [...] W | | | | | | [place], | | | | | | [place] [address] | | | | | | [phone] | | | | | | | [...] nodules. COMPARISON: 08/18/2014, 02/22/2014. PROTOCOL: Axial | [facility] | | images of the chest were obtained after uneventful administration of | [facility] | | 75 mL Omnipaque 350. [...] + | [facility] | [address] | [place] | [phone] | | [facility] | | [address] | | | - IMAGING | | [...] mL/min/1.73m2 | [facility] | | | [facility] | | | MEDICAL | | | [...] [address] | [place] | [phone] | | [facility] | | [address] | | | - LABORATORY | | [...]
--- OUTSIDE RECORDS SUMMARY | ~2019-04-12 | XMS | Encounter Summary ---
Demographics + + + | Address | [address] | | | [place] [address] | + + + | Home Phone [...] | Author | [facility] | | | and [place] | + + + | Organization | [facility] | | [...] | | | | | [place] [address] | | + + + + + | Hunter Jackson | ECON | [place] | | + + + + + | Wes Jackson | ECON | [place], [place] | | + + + + + | Oziel Jackson | ECON | [place], [place] | | + + + + + Care Team Providers + +------+ + | Care Lay Out Technician Name | Role | Phone | [...] | | | [place], | [facility], | | | | | [place] [address] | [place] [address] | | | | | [phone] | [phone] | | | | | | | [...] STREETER | | | | | | [address] | | | | | | | | +--------+---------+ + + + | 11/21/ | Office | Cardiology | Yesi, | | | 2019 | Visit | | JOSE ALBERTO Linder [address] | | | | | | [place] | | | | | | [place] [address] | | | | | | [phone] | | | | | | | | +--------+---------+ + + + documented as of this encounter Visit Diagnoses Not on filedocumented in this encounter"
--- OUTSIDE RECORDS SUMMARY | ~2019-04-12 | XMS | Encounter Summary ---
Demographics + + + | Address | [address] | | | [place] [address] | + + + | Home Phone [...] Author | [facility] | | | and [place]ana | + + + | Organization | [facility] | | [...] [place] | | | | | [place] [address] | | + + + + + | Hunter Jackson | ECON | [place] | | + + + + + | Wes Jackson | ECON | [place], [place] | | + + + + + | Oziel Jackson | ECON | [place], [place] | | + + + + + Care Team Providers + +------+ + | Care Steam Shovel Operator Name | Role | Phone [...] ORTHOPEDIC SURGERY | [facility] | carpometacarpal | | | | [address] [facility] | [place] [facility] [place] | (CMC) joint of right | | | | [place], [place] | [address] | thumb (Primary Dx); | | | | [address] | | 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 Not for IV | | | | | | | use., | | | | | | + +-------+ +-------+---+ + +---+---+ | | | +---+---+ documented in this encounter
--- OUTSIDE RECORDS SUMMARY | ~2019-04-12 | XMS | Encounter Summary ---
Demographics + + + | Address | [address] | | | [place] [address] | + + + | Home Phone [...] [facility] | | | and Ohana | + + + | Organization | [facility] | | [...] | | | | | [place] [address] | | + + + + + | Hunter Jackson | ECON | [place] | | + + + + + | Wes Jackson | ECON | [place], [place] | | + + + + + | Oziel Jackson | ECON | [place], [place] | | + + + + + Care Team Providers + +------+ + | Care Other Spatial Scientist Name | Role | Phone | [...] + + | 10/30/ | Telephone | [facility] | Rodolfo Cruz, | Back Pain | | 2016 | | MEDICINE [address] [place] [address] | MD [address] | | | | | [place] | [place] | | | | | [place] [address] | [address] | | | | | [phone] | | | +--------+ + + + [...] STREETER | | | | | | [address] | | | | | | | | +--------+---------+ + + + | 11/21/ | Office | Cardiology | Yesi | | | 2019 | Visit | | JOSE ALBERTO Linder [address] | | | | | | [place] | | | | | | [place] [address] | | | | | | [phone] | | | | | | | | +--------+---------+ + + + documented as of this encounter Visit Diagnoses Not on filedocumented in this encounter"
--- OUTSIDE RECORDS SUMMARY | ~2019-04-12 | XMS | Encounter Summary ---
Demographics + + + | Address | [address] | | | [place] [address] | + + + | Home Phone [...] Author | [facility] | | | and [place] | + + + | Organization | [facility] | [...] | | | | | [place] [address] | | + + + + + | Hunter Jackson | ECON | [place] | | + + + + + | Wes Jackson | ECON | [place], [place] | | + + + + + | Oziel Jackson | ECON | [place], [place] | | + + + + + Care Team Providers + +------+ + | Care Bobbin Cleaner Name | Role | Phone | [...] | 09/20/ | Refill | [facility] | Rodolfo Cruz, | Medication Refill | | 2015 | | MEDICINE [address] | [place] [address] | | | | | [place] | [place] [address] | | | | | [place] [id number] | [id number] | | | | | [phone] | | | +--------+--------+ + + + [...] STREETER | | | | | | [id number] | | | | | | | | +--------+---------+ + + + | 11/21/ | Office | Cardiology | Yesi, | | | 2019 | Visit | | JOSE ALBERTO [address] | | | | | | [address] | | | | | | [place] [address] | | | | | | [phone] | | | | | | | | +--------+---------+ + + + documented as of this encounter Visit Diagnoses Not on filedocumented in this encounter"
--- OUTSIDE RECORDS SUMMARY | ~2019-04-12 | XMS | Encounter Summary ---
Demographics + + + | Address | [address] | | | [place] [address] | + + + | Home Phone [...] | Author | [facility] | | | and Ohana | + + + | Organization | [facility] | | [...] | | | | | [place] [address] | | + + + + + | Hunter Jackson | ECON | [place] | | + + + + + | Wes Jackson | ECON | [place], [place] | | + + + + + | Oziel Jackson | ECON | [place], [place] | | + + + + + Care Team Providers + +------+ + | Care Jewelry Sales Name | Role | Phone | + [...] Pulmonary | Rodolfo Reilly MD | [address] | | | | | nodules | [address] | [place], | | | | | Procedures | [address] [place] | [place] [address] | | | | | CT Chest w | [place], [place] | Phone: | | | | | Contrast | [address] | [phone] | | | | | | Phone: | Fax: | | | | | | [phone] | [phone] | | | | | | Fax: | | | | | | | [phone] | | +--------+--------+ + + + + Encounter Details +--------+ + + + + | Date | Type | Department | Care Team | Description | +--------+ + + + + | 08/18/ | [facility] | Rodolfo Cruz, | Pulmonary nodules | | 2015 | Encounter | MED CTR [address] | [address] | | | | | [place], | [place], [place] | | | | | [place] [address] | [address] | | | | | [phone] | | | +--------+ + + + [...] [place] | | | | | | [address] | | | | | | | | +--------+---------+ + + + | 11/21/ | Office | Cardiology | Yesi, | | | 2019 | Visit | | JOSEA LBERTO Linder [address] | | | | | | [place], | | | | | | [place] [address] | | | | | | [phone] | | | | | | | [...] COMPARISON: CT chest 02/22/2014, CT chest | [facility] | | abdomen pelvis 11/09/2013 TECHNIQUE: Axial images were obtained from | [facility] | | the base of the [...] intravenous administration of 70 mL | | [id number] contrast. Multiplanar reformatted images created.RADIATION DOSE: DLP [...] [address] | [place] | [phone] | | [facility] | | [address] | | | - IMAGING | | [...] PDT | | | | | Starting [facility] 08/18/14 at 1250, For | | | | | | | 1 dose, Cat Scanner | | | | | | + +--------+ +--------+------+------+ +---+---+ | | | +---+---+ documented in this encounter"
--- OUTSIDE RECORDS SUMMARY | ~2019-04-12 | XMS | Encounter Summary ---
Demographics + + + | Address | [address] | | | [place] [address] | + + + | Home Phone [...] | Author | [facility] | | | and Ohana | + + + | Organization | [facility] [...] | | | | | [place] [address] | | + + + + + | Hunter Jackson | ECON | [place] | | + + + + + | Wes Jackson | ECON | [place], [place] | | + + + + + | Oziel Jackson | ECON | [place], [place] | | + + + + + Care Team Providers + +------+ + | Care Studio Control Operator Name | Role | Phone [...] + + | 10/21/ | Telephone | [facility] | Rodolfo Cruz, | Chest Pain (Call to | | 2013 | | MEDICINE [address] | [address] | pt to verify) | | | | [address] [place] | [place] | | | | | [place] [address] | [address] | | | | | [phone] | | | +--------+ + + + [...] | Office | Orthopedic Surgery | Ulyssse Jensen, | | | 2019 | Visit [...] | | | | | | [place] [address] | | | | | | [phone] | | | | | | | | +--------+---------+ + + + documented as of this encounter Visit Diagnoses + + | Diagnosis | + + | Thoracic sprain and strain, initial encounter - Primary | + + documented in this encounter"
--- OUTSIDE RECORDS SUMMARY | ~2019-04-12 | XMS | Encounter Summary ---
Demographics + + + | Address | [address] | | | [place] [address] | + + + | Home Phone [...] Author | [facility] | | | and Ohana | + + + | Organization | [facility] | [...] | | | | | [place] [address] | | + + + + + | Hunter Jackson | ECON | [place] | | + + + + + | Wes Jackson | ECON | [place], [place] | | + + + + + | Oziel Jackson | ECON | [place], [place] | | + + + + + Care Team Providers + +------+ + | Care Tomb Maker Helper Name | Role | Phone | + +------+ + | Rodolfo Cruz MD | PCP | | + +------+ + Reason for Visit + + + | Reason | Comments | + + + | Follow-up | 6 week | + + + | Hypertension | | + + + Encounter Details +--------+---------+ + + + | Date | Type | Department | Care Team | Description | +--------+---------+ + + + | 03/15/ | Office | [facility] | Rodolfo Cruz, | Upper respiratory | | 2015 | Visit | MEDICINE [facility] [address] | MD [address] | tract infection, | | | | [address] [place] | [place], [place] | unspecified upper | | | | [place] [address] | [address] | respiratory | | | | [phone] | | infection (Primary | | | | | | Dx); Pulmonary | | | | | | nodules; Depression | | | | | | with anxiety | +--------+---------+ + + + Social History [...] + + + | Blood Pressure | 132/66 | 03/15/2015 11:18 AM | | | | | PST | | + + + + + | Pulse | 56 | 03/15/2015 11:18 AM | | | | | PST | | + + + + + | Temperature | 36.8 C (98.2 F) | 03/15/2015 11:18 AM | | | | | PST | | + + + + + | Respiratory Rate | 16 | 03/15/2015 11:18 AM | | | | | PST | | + + + + + | Oxygen Saturation | 98% | 03/15/2015 11:18 AM | | | | | PST | | + + + + + | Inhaled Oxygen | - | - | | | Concentration | | | | + + + + + | Weight | 84.4 kg (186 lb) | 03/15/2015 11:18 AM | | | | | PST | | + + + + + | Height | 162.6 cm (5' 4") | 03/15/2015 11:18 AM | | | | | PST | | + + + + + | Body Mass Index | 31.93 | 03/15/2015 11:18 AM | | | | | PST | | + + + + + documented in this encounter Progress Notes Rodolfo Cruz MD - 03/15/2015 11:47 AM PSTFormatting of this note might be different f rom the original. Subjective: Patient ID: Soumya Jackson is a 79 y.o. female. HPI URI, Hx pulm nodule, Cough for the last couple weeks with some clear production, there is no chest pain or SOB. There is no blood in the sputum. There is no fever. Depression with Anxiety, She is taking the lexapro 1/2 every other day and whole tab every other day. She is feeling less depressed, Her anxiety is a little better too. She has h ad no signif SE from the med since last visit. She had a nervous breakdown in the 60's, A t that time her had a breakdown first. She then learned how to accomodate for this following this experience. Review of Systems Objective: Physical Exam Heent, WNL, No carotid bruit Chest CTAB., no crackles or wheezes Heart RR&R /s M Abd S,NT,ND,BS+ Ext, no CCor E Neuro Non-focal Lymph, no cervical, axillary, inguinal adenopathy Musculoskeletal, no gross deformity or loss or range of motion Skin, no gross lesions Assessment: 1. Upper respiratory tract infection, unspecified upper respiratory infection 2. Pulmonary nodules 3. Depression with anxiety Plan: CT of the chest is pending. I think she has a viral URI, She will let me know if this wor sens. RTC 3 months. documented in this encounter [...] [address] | | | | | | [place], | | | | | | [place] [address] | | | | | | [phone] | | | | | | | | +--------+---------+ + + + documented as of this encounter Visit Diagnoses + + | Diagnosis | + + | Upper respiratory tract infection, unspecified upper respiratory infection - Primary | + + | Pulmonary nodules Other nonspecific abnormal finding of lung field | + + | Depression with anxiety Dysthymic disorder | + + documented in this encounter
--- OUTSIDE RECORDS SUMMARY | ~2019-04-12 | XMS | Encounter Summary ---
Demographics + + + | Address | [address] | | | [place] [address] | + + + | Home Phone [...] | Author | [facility] | | | and [place]ana | + + + | Organization | [facility] | [...] + | Hunter Jackson | ECON | [place] | | + + + + + | Wes Jackson | ECON | [place], [place] | | + + + + + | Oziel Jackson | ECON | [place], [place] | | + + + + + Care Team Providers + +------+ + | Care Powder Monkey Name | Role | Phone | + [...] + + | 08/30/ | Office | [facility] | Ulysses Jensen, | Rotator cuff | | 2016 | Visit | ORTHOPEDIC SURGERY | MD [address] | syndrome of right | | | | [address] [facility] | [place] [address] | shoulder (Primary | | | | [place], [place] | [address] | Dx); Primary | | | | [address] | | osteoarthritis of | | | | [phone] | | first | | | | [...] [place] | | | | | | [address] | | | | | | | | +--------+---------+ + + + | 11/21/ | Office | Cardiology | Yesi, | | | 2019 | Visit | | JOSE ALBERTO Linder [address] | | | | | | [place], | | | | | | [place] [address] | | | | | | [phone] | | | | | | | [...]
--- OUTSIDE RECORDS SUMMARY | ~2019-04-12 | XMS | Encounter Summary ---
Demographics + + + | Address | [address] | | | [place] [address] | + + + | Home Phone [...] Author | [facility] | | | and Ohana | + + + | Organization | [facility] | [...] | | | | | [place] [address] | | + + + + + | Hunter Jackson | ECON | [place] | | + + + + + | Wes Jackson | ECON | [place], [place] | | + + + + + | Oziel Jackson | ECON | [place], [place] | | + + + + + Care Team Providers + +------+ + | Care Education And Outreach Coordinator Name | Role | Phone | [...] | Back pain | | [address] | | | | | Hypothyroidi | | [place], | | | | | sm | | [place] | | | | | Hypertension | | [address] | | | | | Asthma GI | | Phone: | | | | | bleed | | [phone] | | | | | Troponin | | Fax: | | | | | level | | [phone] | | | | | elevated | [...] + + | 11/03/ | Hospital | [facility] | Stanislav Michele, | GI bleed (Primary | | 2013 - | Encounter | [facility] | [address] | Dx); Troponin level | | | | [address] | [place] | elevated; Back pain; | | 11/05/ | | [place] [address] | [address] | Asthma; | | 2013 | | [phone] | | Hypertension; | | | | | Carranza, Yoel F, MD | Thoracic sprain and | | | | | [address] | strain, subsequent | | | | | [place], [place] | encounter; | | | | | [address] | Hypothyroidism; | | | | | [...] might be different fro m the original. [facility] DISCHARGE SUMMARY Pt. Name/Age/: Soumya Jackson [...] problems to display. 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 [DISCONTINUED] [facility]S GARLIC OIL PO CAPS Take 1250 mg by mouth daily. [DISCONTINUED] diclofenac (VOLTAREN) 75 mg EC tablet TAKE ONE TABLET BY MOUTH TWICE A D AY 180 tablet 1 [DISCONTINUED] Xqubgobdnnz-Vyqrgbnzg-Yig C-Mn ([facility]S GLUCOSAMINE-CHONDROITIN) TABS Take 1 tablet by mouth 2 times daily. [DISCONTINUED] KRILL OIL 1000 MG CAPS Take 1,000 mg by mouth Daily. [DISCONTINUED] metaxalone (SKELAXIN) 800 mg tablet Take 800 mg by mouth 3 times daily. 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 Got total 4 PRBC Troponin I above reference range EKG without ischemia. Mild troponin leak but well below threshold for IA. Echo EF 63%, no sig change versus [...] Mamogram and UPEP and Stress Test with treating engineer helper OK to restart baby ASA NOT restart [...] appt) Contact information: [address] [facility] [address] Follow up with JOSE ALBERTO Marcelo. (Have Dr Cruz arrange an appt to see her in about a month from now) Contact information: [address], [address] [facility] [address] Condition: Patient being discharged with condition improved Dr Pandya recommends double dose of PPI for 1 month then single dose Thus Prilosec 20 mg bid X 1 month then can lower to 20 mg daily Diet: Regular Greater than 30 minutes were spent on discharge and coordination of post-hospital care. Electronically signed by: Yoel Carranza MD, 11/05/2013 13:26 [facility] Portions of this chart may have been created with Bandhappy voice recognition software. Occasi onal wrong-word or [...] might be different fro m the original. [facility] PROGRESS NOTE Patient: Soumya Jackson : 1935: Age: 78 y.o. MedRec: [id number] Admission date: 11/03/2013 Hospital day # : [...] -- No results found for this basename: PHART:3,PO2ART:3,FMA0PIZ:3,XIB0HPR:3,BEART:3,F0FYPSIE:3 in the last 168 hours No results found for this basename: SPECSOURCE:3,PHPOCB:3,HTGHR6AQ:3,YSNB5RJ:3,HCO3:3,TCO2: 3,BEART:3,BE:3,AANC8DAK:3 in the last 168 hours Point of [...] troponin leak but well below threshold for IA. Echo EF 63%, no sig change versus [...] Mamogram and UPEP and Stress Test with treating engineer helper OK to restart baby ASA NOT restart Voltaren Advise appt with Merissa in GI clinic in about 1 month. Yoel Carranza MD 11/05/2013 13:14 [facility] Dot phrase reference: VSHOSP (VS in table, last 24 hours) MEYLAB (various labs to pull in) DT (date and time) LABRCNTIP[K:3,Na:3 (last 3 sets of labs using potassium and sodium as examples) HGB HCT PLT INR GLU POCGLU Na K BUN CREA, CALCIUM TROPONINI BNP DIGOXIN DDIMERQUANT Portions of this chart may have been created with Bandhappy voice recognition software. Occasi onal wrong-word or [...] 1 unit of PRBC transfused without reaction. Clyman 1 tab given for lower back pain w ith good relief of pain. No active bleeding noted. odolfo Montes RRT - 11/04/2013 9:15 AM PDTPt not in roomEle ctronically signed by Rodolfo Montes RRT at 11/04/2013 2:44 PM Yoel Plaza MD - 7:17 AM PDT [facility] PROGRESS NOTE Patient: Soumya Jackson : 1935: Age: 78 y.o. MedRec: [id number] Admission date: 11/03/2013 Hospital day # : [...] injection 80 mg 80 mg Intravenous Once Stainslav antonio MD 80 mg at 11/03/13 0848 [...] -- No results found for this basename: PHART:3,PO2ART:3,YGX5HLJ:3,VAY9JBP:3,BEART:3,Y0CFCORO:3 in the last 168 hours No results found for this basename: SPECSOURCE:3,PHPOCB:3,KMCFX2SB:3,RQNT8KF:3,HCO3:3,TCO2: 3,BEART:3,BE:3,OLWF4JCY:3 in the last 168 hours Point of [...] troponin leak but well below threshold for IA. Echo EF 63%, no sig change versus [...] labs though) Yoel Carranza MD 11/04/2013 7:17 [facility] Dot phrase reference: VSHOSP (VS in table, last 24 hours) MEYLAB (various labs to pull in) DT (date and time) LABRCNTIP[K:3,Na:3 (last 3 sets of labs using potassium and sodium as examples) HGB HCT PLT INR GLU POCGLU Na K BUN CREA, CALCIUM TROPONINI BNP DIGOXIN DDIMERQUANT Portions of this chart may have been created with Bandhappy voice recognition software. Occasi onal wrong-word or [...] [place] | | | | | | [id number] | | | | | | | | +--------+---------+ + + + | 11/21/ | Office | Cardiology | Yesi, | | | 2019 | Visit | | JOSE ALBERTO L[address] | | | | | | [address] [place], | | | | | | [place] [address] | | | | | | [phone] | | | | | | | [...] + | MISCELLANEOUS LAB | | | [phone] | + +---------+ + + | MISCELANIOUS LAB | | | [phone] | + +---------+ + + CBC with [...] + | [facility] | [address] | [place] | [phone] | | [facility] | | [address] | | | - LABORATORY | | | | + + + + + | [facility] | [address] | [place] | | | [facility] | | [address] | | | - LABORATORY | | [...] | 0.64 | 0.60 - 1.30 | [facility] | | | | | mg/dL | [facility] | | | | | | MEDICAL | | | | | | CENTER - | | | | | | LABORATORY | | + + + + + + | eGFR if not | >60Comment: GLOMERULAR | >=60 | [facility] | | | | FILTRATION | mL/min/1.73m2 | [facility] | | | ECU[place]OREAN | RATE,ESTIMATED | | MEDICAL | | | | mL/min/1.79m6Afrd than | | CENTER - | | [...] | + + + + + | [facility] | [address] | [place] | [phone] | | [facility] | | [address] | | | - LABORATORY | | | | + + + + + | [facility] | [address] | [place], [place] | | | [facility] | | [address] | | | - LABORATORY | | [...] + + + | UNIT # | [id number] | | [facility] | | | | [...] ST. | [address] | [place], [place] | | | [facility] | | [address] | | | - BLOOD BANK | [address] | [place] | [phone] | | [facility] | | [address] | | | - LABORATORY | | | | + + + + + | [facility] | [address] | [place] | | | [facility] | | [address] | | | - LABORATORY | | [...] + + + | UNIT # | [id number] | | [facility] | | | | [...] St | [place] | | | [facility] | | [address] | | | - BLOOD BANK | | | | + + + + + EGD (11/04/2013 8:39 AM PDT) + + | Specimen | + + | | + + + + -+ | Narrative | Performed At | + + -+ | | [facility] | | GastroenterologyPatient Name: Soumya Grimes Date: 11/04/2013 8:39 | [facility] | | AMN: [id number] #: [id number] of : 8Admit | | | Type: InpatientAge: 78Room: [facility] 02Gender: FemaleNote Status: | | | [...] the nurse | | | and the 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 Mental Status [...] 0Note Initiated On: 11/04/2013 8:[address] [facility] | | | [facility], [address] [place] [address] | | | [phone] | | | - Non-bleeding erosive gastropathy. [...] 11/04/2013 8:39 AM | | | [facility], [address] [place] [address] | | | [address] | | + + -+ + + [...] + + + | UNIT # | [id number] | | [facility] | | | | [...] St | [place] | | | [facility] | | [address] | | | - BLOOD BANK | [...] + | [facility] | [address] | [place] | [phone] | | [facility] | | [address] | | | - LABORATORY | | | | + + + + + | [facility] | [address] | [place] | | | [facility] | | [address] | | | - LABORATORY | | [...] + | [facility] | [address] | [place] | [phone] | | [facility] | | [address] | | | - LABORATORY | | | | + + + + + | [facility] | [address] | [place] | | | [facility] | | [address] | | | - LABORATORY | | [...] + | [facility] | [address] | [place] | [phone] | | [facility] | | [address] | | | - LABORATORY | | | | + + + + + | [facility] | [address] | [place] | | | [facility] | | [address] | | | [...] 0.59 (L) | 0.60 - 1.30 | [facility] | | | | | mg/dL [...] mL/min/1.73m2 | [facility] | | | ECU[place]OREAN | RATE,ESTIMATED | | MEDICAL | | | | mL/min/1.54u9Fdto than | | CENTER - | | [...] + | [facility] | [address] | [place], [place] | [phone] | | [facility] | | [address] | | | - LABORATORY | | | | + + + + + | [facility] | [address] | [place], [place] | | | [facility] | | [address] | | | - LABORATORY | | [...] + + + | UNIT # | [id number] | | [facility] | | | | [...] + | [facility] | [address] | [place] | | | [facility] | | [address] | | | - BLOOD BANK | [...] + + | Performing | Address | [facility] | Phone Number | | Organization | | | | + + + + + | [facility] | [address] | [place] | [phone] | | [facility] | | [address] | | | - LABORATORY | | | | + + + + + | [facility] | [address] | [place] | | | [facility] | | [address] | | | - LABORATORY | | [...] | | | | | | [employer] | | | | | [...] + | [facility] | [address] | [place] | [phone] | | [facility] | | [address] | | | - LABORATORY | | | | + + + + + | [facility] | [address] | [place], [place] | | | [facility] | | [address] | | | - LABORATORY | | [...] [address] | [place] | [phone] | | [facility] | | [address] | | | - LABORATORY | | | | + + + + + | [facility] | [address] | [place] | | | [facility] | | [address] | | | - LABORATORY | | [...] | | | | | | [employer] | | | | | [...] + | [facility] | [address] | [place], [place] | [phone] | | [facility] | | [address] | | | - LABORATORY | | | | + + + + + | [facility] | [address] | [place], [place] | | | [facility] | | [address] | | | - LABORATORY | | [...] + | [facility] | [address] | [place] | [phone] | | [facility] | | [address] | | | - LABORATORY | | | | + + + + + | [facility] | [address] | [place] | | | [facility] | | [address] | | | - LABORATORY | | [...] + | [facility] | [address] | [place] | [phone] | | [facility] | | [address] | | | - LABORATORY | | | | + + + + + | [facility] | [address] | [place] | | | [facility] | | [address] | | | - LABORATORY | | [...] | | | | | | [employer] | | | | | [...] + | [facility] | [address] | [place] | [phone] | | [facility] | | [address] | | | - LABORATORY | | | | + + + + + | [facility] | [address] | [place], [place] | | | [facility] | | [address] | | | - LABORATORY | | [...] + | [facility] | [address] | [place] | [phone] | | [facility] | | [address] | | | - LABORATORY | | | | + + + + + | [facility] | [address] | [place] | | | [facility] | | [address] | | | - LABORATORY | | | | + + + + + ECHO Complete (11/03/2013 12:00 PM PDT) + + | Specimen | + + | | + + + + + | Narrative | Performed At | + + + | [facility] ECHOCARD[facility]GRAM REPORT | | | STUDY DATE: [...] Carito Maher MD PhD | | | [facility] 11/03/2013 12:17 Top Spotter: Merlin Dolan, | | | RDMS | | + + + + + | Procedure Note | + + | Ric Maher MD - 11/03/2013 6:[address] [facility] | | CENTERECHOCARDIOGRAM REPORTSTUDY DATE: 11/03/2013PATIENT NAME: Soumya Daniels: | | 1935MRN: [id number]: Rodolfo Cruz [facility]/DIAGNOSIS: Elevated | | troponinA transthoracic echocardiogram [...] PP mmHgLA volume: 54 mLLA index: 28 mL/k7Jqvgjq Inflow DT: | | 284 msIVRT: 88 msValsalva: Not neededPWDTI S wave: 8.0 cm/sPWDTI E wave: 6.8 | | cm/sPWDTI A wave: 14.8 cm/sE/A Ratio: 0.46E/E Ratio: 19.52Signed by: Carito Solorio | | MD Nika PhD FACC 11/03/2013 12:17 Top Spotter: Merlin Dolan RDMS | |Tricuspid valve: normal [...] 11/03/2013 12:17 | | | | | |Top Spotter: Merlin Dolan RDMS | + + Protein [...] + | [facility] | [address] | [place], [place] | [phone] | | [facility] | | [address] | | | - LABORATORY | | | | + + + + + | [facility] | [address] | [place], [place] | | | [facility] | | [address] | | | - LABORATORY | | [...] | 1.015 | | | | | [place], | | | | | | UA, [...] + | [facility] | [address] | [place], [place] | | | [facility] | | [address] | | | - BLOOD BANK | [...] + | MISCELLANEOUS LAB | | | [phone] | + +---------+ + + | MISCELANIOUS LAB | | | [phone] | + +---------+ + + Troponin I [...] | | | | | | [employer] | | | | | [...] + | [facility] | [address] | [place], [place] | [phone] | | [facility] | | [address] | | | - LABORATORY | | | | + + + + + | [facility] | [address] | [place], [place] | | | [facility] | | [address] | | | - LABORATORY | | [...] | 0.66 | 0.60 - 1.30 | [facility] | | | | | mg/dL [...] mL/min/1.73m2 | [facility] | | | ECU[place]OREAN | RATE,ESTIMATED | | MEDICAL | | | | mL/min/1.92p4Epmc than | | CENTER - | | [...] + | [facility] | [address] | [place] | [phone] | | [facility] | | [address] | | | - LABORATORY | | | | + + + + + | [facility] | [address] | [place] | | | [facility] | | [address] | | | - LABORATORY | | [...] + | [facility] | [address] | [place], [place] | [phone] | | [facility] | | [address] | | | - LABORATORY | | | | + + + + + | [facility] | [address] | [place], [place] | | | [facility] | | [address] | | | - LABORATORY | | [...] | | +---+---+ + +-------+ +---------+---+---+ | [id number]-jiuxkfgpnz-[id number] | Given | 11/05/19 | 1 spray [...] | | | | | dose on [facility] 11/04/13 at 2300, If | | [...]
--- OUTSIDE RECORDS SUMMARY | ~2019-04-12 | XMS | Encounter Summary ---
Demographics + + + | Address | [address] | | | [place] [address] | + + + | Home Phone [...] Author | [facility] | | | and [place]ana | + + + | Organization | [facility] | [...] | | | | | [place] [address] | | + + + + + | Hunter Jackson | ECON | [place] | | + + + + + | Wes Jackson | ECON | [place], [place] | | + + + + + | Oziel Jackson | ECON | [place], [place] | | + + + + + Care Team Providers + +------+ + | Care Plastic Jig And Fixture Builder Name | Role | Phone | [...] [place] | | | | | | [address] | [address] Phone: | | | | | | Phone: | [phone] | | | | | | [phone] | Fax: | | | | | | Fax: | [phone] | | | | | | [phone] | | +--------+ + + + + + Reason for Visit + + + | Reason | Comments | + + + | Follow-up | | + + + Encounter Details +--------+---------+ + + + | Date | Type | Department | Care Team | Description | +--------+---------+ + + + | 09/03/ | Office | [facility] | Roodlfo Cruz, | Hypertension | | 2013 | Visit | [facility] | [address] | (Primary Dx); Right | | | | [address] | [place] | ankle pain; | | | | [place] | [address] | Gastroenteritis; | | | | [address] | | Vertigo | | | | [phone] | | | +--------+---------+ + + + [...] | | | | | | [place] [address] | | | | | | [phone] | | | | | | | [...] | [facility] | [address] | [place], [place] | [phone] | | [facility] | | [address] | | | - LABORATORY | | | | + + + + + | [facility] | [address] | [place], [place] | | | [facility] | | [address] | | | - LABORATORY | | [...] | | Basophils | | | [facility] | | | | | | [...] [address] | [place] | [phone] | | [facility] | | [address] | | | - LABORATORY | | | | + + + + + | [facility] | [address] | [place] | | | [facility] | | [address] | | | - LABORATORY | | [...] - 1.030 | [facility] | | | [place] | | | [facility] | | [...] | [facility] | [address] | [place] | [phone] | | [facility] | | [address] | | | - LABORATORY | | | | + + + + + | [facility] | [address] | [place], [place] | | | [facility] | | [address] | | | - LABORATORY | | [...]
--- OUTSIDE RECORDS SUMMARY | ~2019-04-12 | XMS | Encounter Summary ---
Demographics + + + | Address | [address] | | | [place] [address] | + + + | Home Phone [...] | Author | [facility] | | | and [place] | + + + | Organization | [facility] | [...] | | | | | [place] [address] | | + + + + + | Hunter Jackson | ECON | [place] | | + + + + + | Wes Jackson | ECON | [place], [place] | | + + + + + | Oziel Jackson | ECON | [place], [place] | | + + + + + Care Team Providers + +------+ + | Care Producer Arborist Manager Name | Role | Phone | [...] + + | 01/03/ | Office | [facility] | Rodolfo Cruz, | Urticaria, chronic | | 2016 | Visit | MEDICINE [facility] | [address] | (Primary Dx) | | | | [address] [place] | [place] | | | | | [place] [address] | [address] | | | | | [phone] | | | +--------+---------+ + + + [...] [place] | | | | | | [address] | | | | | | | | +--------+---------+ + + + | 11/21/ | Office | Cardiology | Yesi, | | | 2019 | Visit | | JOSE ALBERTO [address]inder [address] | | | | | | [place], | | | | | | [place] [address] | | | | | | [phone] | | | | | | | [...] [place] | | | | | | [address] | | | | + + + [...] [facility] | [address] | [place] [address] | [phone] | + + + + + DNA [...] | | | | | [place] [address] | | | | + + + [...] [address] | [place] [address] | [phone] | + + + + + CBC [...] [address] | [place] | [phone] | | [facility] | | [address] | | | - LABORATORY | | | | + + + + + documented in this encounter Visit Diagnoses + + | Diagnosis | + + | Urticaria, chronic - Primary Other specified urticaria | + + documented in this encounter"
--- OUTSIDE RECORDS SUMMARY | ~2019-04-12 | XMS | Encounter Summary ---
Demographics + + + | Address | [address] | | | [place] [address] | + + + | Home Phone [...] + | Author | [facility] | | | and [place] | + + + | Organization | [facility] | | | [...] [place] | | | | | [place] [address] | | + + + + + | Hunter Jackson | ECON | [place] | | + + + + + | Wes Jackson | ECON | [place], [place] | | + + + + + | Oziel Jackson | ECON | [place], [place] | | + + + + + Care Team Providers + +------+ + | Care Barrel Cooper Name | Role | Phone | + [...] | Ulysses Rios MD | [address] | | | | | right | [address] | [place], | | | | | shoulder | [place] | [place] | | | | | pain | [place], [place] | [address] | | | | | Procedures | [address] | Phone: | | | | | MRI Shoulder | Phone: | [phone] | | | | | Right wo | [phone] | Fax: | | | | | Contrast | Fax: | [phone] | | | | | | [phone] | | +--------+--------+ + + + + [...] | Ulysses Rios MD | [address] | | | | | right | [address] | [place], | | | | | shoulder | [place] | [place] | | | | | pain | [place], [place] | [address] | | | | | Procedures | [address] | Phone: | | | | | MRI Shoulder | Phone: | [phone] | | | | | Right wo | [phone] | Fax: | | | | | Contrast | Fax: | [phone] | | | | | | [phone] | | +--------+--------+ + + + + Encounter Details +--------+ + + + + | Date | Type | Department | Care Team | Description | +--------+ + + + + | 09/26/ | Hospital | [facility] | Ulysses Jensen, | Chronic right | | 2017 | Encounter | MED CTR MRI [address] | shoulder pain | | | | [place], | [place], [place] | | | | | [place] [address] | [address] | | | | | [phone] | | | +--------+ + + + [...] [address] | | | | | | [address] | | | | | | | | +--------+---------+ + + + | 11/21/ | Office | Cardiology | Yesi, | | | 2019 | Visit | | JOSE ALBERTO [address] | | | | | | [place], | | | | | | [place] [address] | | | | | | [phone] | | | | | | | | +--------+---------+ + + + documented as of this encounter Procedures + +--------+ + + + | Procedure Name | Priori | Date/Time | Associated Diagnosis | Comments | | | ty | | | | + +--------+ + + + | MRI SHOULDER RIGHT | Routin | 09/26/2016 | Chronic right | Results for this | | WO CONTRAST | e | 1:04 PM | shoulder pain | procedure are in the | | | | PDT | | results section. | + +--------+ + + + documented in this encounter Results MRI Shoulder Right wo Contrast (09/26/2016 1:04 PM PDT) + + | Specimen | + + | | + + + + + | Narrative | Performed At | + + + | MRI SHOULDER RIGHT WO CONTRAST 09/26/2016 12:27 PM HISTORY: | [facility] | | Right Shoulder Pain- Evaluate for Rotator Cuff Tear. COMPARISON: | [facility] | | None. PROTOCOL: Axial proton density fat sat, coronal proton [facility] | | density fat sat, sagittal proton [...] | [address] | [place] | [phone] | | [facility] | | [address] | | | - IMAGING | | | | + + + + + documented in this encounter Visit Diagnoses + + | Diagnosis | + + | Chronic right shoulder pain Pain in joint, shoulder region | + + documented in this encounter"
--- OUTSIDE RECORDS SUMMARY | ~2019-04-12 | XMS | Encounter Summary ---
Demographics + + + | Address | [address] | | | [place] [address] | + + + | Home Phone [...] | [facility] | | | and [place] | + + + | Organization | [facility] | [...] | | | | | [place] [address] | | + + + + + | Hunter Jackson | ECON | [place] | | + + + + + | Wes Jackson | ECON | [place], [place] | | + + + + + | Oziel Jackson | ECON | [place], [place] | | + + + + + Care Team Providers + +------+ + | Care Drug Safety Coordinator Name | Role | Phone | + +------+ + | Rodolfo Cruz MD | PCP | | + +------+ + Encounter Details +--------+ + + + + | Date | Type | Department | Care Team | Description | +--------+ + + + + | 11/26/ | Hospital | [facility] | Rodolfo Cruz, | Memory loss; | | 2015 | Encounter | [facility] | MD Raya Zuleta [address] | Urticaria, | | | | [address] [place] | [place], [place] | unspecified | | | | [place], [place] | [address] | | | | | [address] | | | | | | [phone] | | | +--------+ + + + [...] + + + +---------+ + + | [place] 3 1000 MG | Take by mouth. [...] STREET[place] | | | | | | [address] | | | | | | | | +--------+---------+ + + + | 11/21/ | Office | Cardiology | Yesi, | | | 2019 | Visit | | JOSE ALBERTO Linder [address] | | | | | | [place], | | | | | | [place] [address] | | | | | | [phone] | | | | | | | [...] [address] | [place] | [phone] | | [facility] | | [address] | | | - LABORATORY | | [...] + | [facility] | [address] | [place] | [phone] | | [facility] | | [address] | | | - LABORATORY | | [...] [address] | [place] | [phone] | | [facility] | | [address] | | | - LABORATORY | | | | + + + + + documented in this encounter Visit Diagnoses + + | Diagnosis | + + | Memory loss | + + | Urticaria, unspecified | + + documented in this encounter"
--- OUTSIDE RECORDS SUMMARY | ~2019-04-12 | XMS | Encounter Summary ---
Demographics + + + | Address | [address] | | | [place] [address] | + + + | Home Phone [...] Author | [facility] | | | and [place] | + + + | Organization | [facility] [...] | | | | | [place] [address] | | + + + + + | Hunter Jackson | ECON | [place] | | + + + + + | Wes Jackson | ECON | [place], [place] | | + + + + + | Oziel Jackson | ECON | [place], [place] | | + + + + + Care Team Providers + +------+ + | Care Fire Boss Name | Role | Phone | + [...] | 01/23/ | Refill | [facility] | Rodolfo Cruz, | Medication Refill | | 2015 | | MEDICINE [address] | MD [address] | | | | | [place] | [place] | | | | | [place] [address] | [address] | | | | | [phone] | | | +--------+--------+ + + + [...] | | | | | | [place] [address] | | | | | | [phone] | | | | | | | | +--------+---------+ + + + documented as of this encounter Visit Diagnoses Not on filedocumented in this encounter"
--- OUTSIDE RECORDS SUMMARY | ~2019-04-12 | XMS | Encounter Summary ---
Demographics + + + | Address | [address] | | | [place] [address] | + + + | Home Phone [...] Author | [facility] | | | and [place] | + + + | Organization | [facility] | | [...] | | | | | [place] [address] | | + + + + + | Hunter Jackson | ECON | [place] | | + + + + + | Wes Jackson | ECON | [place], [place] | | + + + + + | Oziel Jackson | ECON | [place], [place] | | + + + + + Care Team Providers + +------+ + | Care Head School Custodian Name | Role | Phone | [...] | [address] | | | | | [address] | | | | | | [phone] | | | +--------+--------+ + + + [...] | | | | | | [place] [address] | | | | | | [phone] | | | | | | | | +--------+---------+ + + + documented as of this encounter Visit Diagnoses Not on filedocumented in this encounter"
--- OUTSIDE RECORDS SUMMARY | ~2019-04-12 | XMS | Encounter Summary ---
Demographics + + + | Address | [address] | | | [place] [address] | + + + | Home Phone [...] | Author | [facility] | | | and [place] | + + + | Organization | [facility] | | [...] | | | | | [place] [address] | | + + + + + | Hunter Jackson | ECON | [place] | | + + + + + | Wes Jackson | ECON | [place], [place] | | + + + + + | Oziel Jackson | ECON | [place], [place] | | + + + + + Care Team Providers + +------+ + | Care Golf Ball Trimmer Name | Role | Phone | [...] + + | 09/29/ | Telephone | [facility] | Rodolfo Cruz, | Heart Problem | | 2013 | | MEDICINE [address] [place] [address] | MD [address] | | | | | [place] | [place] [address] | | | | | [place] [address] | [address] | | | | | [phone] | | | +--------+ + + + [...] | | | | | | [place] [address] | | | | | | [phone] | | | | | | | | +--------+---------+ + + + documented as of this encounter Visit Diagnoses Not on filedocumented in this encounter"
--- OUTSIDE RECORDS SUMMARY | ~2019-04-12 | XMS | Encounter Summary ---
Demographics + + + | Address | [address] | | | [place] [address] | + + + | Home Phone [...] Author | [facility] | | | and [place] | + + + | Organization | [facility] | [...] | | | | | [place] [address] | | + + + + + | Hunter Jackson | ECON | [place] | | + + + + + | Wes Jackson | ECON | [place], [place] | | + + + + + | Oziel Jackson | ECON | [place], [place] | | + + + + + Care Team Providers + +------+ + | Care Hydroelectric Production Manager Name | Role | Phone | [...] [place], | | | | | | [address] | [place] [address] | | | | | | Phone: | Phone: | | | | | | [phone] | [phone] | | | | | | Fax: | Fax: | | | | | | [phone] | [phone] | +--------+ + + + + + Encounter Details +--------+---------+ + + + | Date | Type | Department | Care Team | Description | +--------+---------+ + + + | 09/08/ | Office | [facility] | Zion Valencia MD | Epistaxis (Primary | | 2014 | Visit | OTOLARYNGOLOGY [address] | [address] [place] | Dx) | | | | [address] | [address] [place], | | | | | [place] | [place] [address] | | | | | [address] | [phone] | | | | | [phone] | | | +--------+---------+ + + + [...] - 09/08/2014 4:07 PM PDT [facility] [place] OT[facility] [address] [facility] [address] OFFICE NOTE ZION VALENCIA MD Patient: JACLYN JACKSON Admitting: MR #: [id number] LOC: PT TYPE: Adm Date: 09/08/2014 : [...] 16:07:00 Transcribed on 09/08/2014 21:04:56 by job# [id number] Confirmation #: [id number] cc: SUGAR CRUZ MD chiquitaZion cain MD - 09/08/2014 4:04 PM PDTSee dictation # [id number] signed by Zion Valencia MD at 09/08/2014 [...] STREETER | | | | | | [address] | | | | | | | | +--------+---------+ + + + | 11/21/ | Office | Cardiology | Yesi, | | | 2019 | Visit | | JOSE ALBERTO Linder [address] | | | | | | [place] | | | | | | [place] [address] | | | | | | [phone] | | | | | | | | +--------+---------+ + + + documented as of this encounter Visit Diagnoses + + | Diagnosis | + + | Epistaxis - Primary | + + documented in this encounter
--- OUTSIDE RECORDS SUMMARY | ~2019-04-12 | XMS | Encounter Summary ---
Demographics + + + | Address | [address] | | | [place] [address] | + + + | Home Phone [...] + | Author | [facility] | | | and [place] | + + + | Organization | [facility] | | [...] [place] | | | | | [place] [address] | | + + + + + | Hunter Jackson | ECON | [place] | | + + + + + | Wes Jackson | ECON | [place], [place] | | + + + + + | Oziel Jackson | ECON | [place], [place] | | + + + + + Care Team Providers + +------+ + | Care Lamp Assembler Name | Role | Phone | [...] | 11/25/ | Refill | [facility] [place] | Irina Simms, | Medication Refill | | 2018 | | CARDIOLOGY [address] | MD [address] | | | | | [place], | [place], | | | | | [place] [address] | [place] [address] | | | | | [phone] | [phone] | | | | | | | [...] STREET[place] | | | | | | [address] | | | | | | | | +--------+---------+ + + + | 11/21/ | Office | Cardiology | Yesi, | | | 2019 | Visit | | JOSE ALBERTO Linder [address] | | | | | | [place] | | | | | | [place] [address] | | | | | | [phone] | | | | | | | | +--------+---------+ + + + documented as of this encounter Visit Diagnoses Not on filedocumented in this encounter"
--- OUTSIDE RECORDS SUMMARY | ~2019-04-12 | XMS | Encounter Summary ---
Demographics + + + | Address | [address] | | | [place] [address] | + + + | Home Phone [...] Author | [facility] | | | and [place] | + + + | Organization | [facility] | | | and [place] | + + + | Address | Unknown | + + + | Phone | Unavailable | + + + Support + + + + + | Name | Relationship | Address | Phone | + + + + + | Osmin Jackson | ECON | [address] | | | | | [place] [address] | | + + + + + | Hunter Jackson | ECON | [place] | | + + + + + | Wes Jackson | ECON | [place], [place] | | + + + + + | Oziel Jackson | ECON | [place], [place] | | + + + + + Care Team Providers + +------+ + | Care Radiation / Chemistry Technician Name | Role | Phone | + +------+ + | Sugar Cruz MD | PCP | | + +------+ + Reason for Visit + + + | Reason | Comments | + + + | Follow-up | recurrent epistaxis,last one was Friday,[place] go to the ER in | | | [place] | + + + Evaluate & Treat [...] [place], | | | | | | [address] | [place] [address] | | | | | | Phone: | Phone: | | | | | | [phone] | [phone] | | | | | | Fax: | Fax: | | | | | | [phone] | [phone] | +--------+ + + + + + [...] [place], [place] | | | | | [place], [place] | [address] | | | | | [address] | | | | | | [phone] | Zion Valencia MD | | | | | | [address] [place] | | | | | | [address] [place], [place] | | | | | | [address] | | | | | | | [...] MD - 08/31/2014 11:06 AM PDT [facility] OTOL[facility] [address] [place] [address] OFFICE NOTE ZION VALENCIA MD Patient: JACLYN JACKSON Admitting: MR #: [id number] LOC: PT TYPE: Adm Date: 08/31/2014 : 1935 DATE OF VISIT: 08/31/2014. The patient has continued to have further problems with epistaxis. She was seen back in [facility]. She was treated in the emergency room [...] 08/31/2014 11:06:56 Transcribed on 08/31/2014 11:19:38 by [facility] job# [id number] Confirmation #: [id number] cc: SUGAR CRUZ MD [facility] cancer centerZion MD - 08/31/2014 11:03 AM PDTSee dictation # [id number] signed by Zion Valencia MD at 08/31/2014 [...] | | | | | | [place] [address] | | | | | | [phone] | | | | | | | [...]
--- OUTSIDE RECORDS SUMMARY | ~2019-04-12 | XMS | Encounter Summary ---
Demographics + + + | Address | [address] | | | [place] [address] | + + + | Home Phone [...] Author | [facility] | | | and [place] | + + + | Organization | [facility] [...] | | | | | [place] [address] | | + + + + + | Hunter Jackson | ECON | [place] | | + + + + + | Wes Jackson | ECON | [place], [place] | | + + + + + | Oziel Jackson | ECON | [place], [place] | | + + + + + Care Team Providers + +------+ + | Care Medical Record Retrieval Specialist Name | Role | Phone | [...] + | 09/03/ | Refill | [facility] | Rodolfo Cruz, | Medication Refill | | 2012 | | MEDICINE [address] | MD [address] | | | | | [place] | [place] | | | | | [place] [address] | [address] | | | | | [phone] | | | +--------+--------+ + + + [...] | | | | | | [place] [address] | | | | | | [phone] | | | | | | | | +--------+---------+ + + + documented as of this encounter Visit Diagnoses + + | Diagnosis | + + | Hypertension - Primary Unspecified essential hypertension | + + documented in this encounter"
--- OUTSIDE RECORDS SUMMARY | ~2019-04-12 | XMS | Encounter Summary ---
Demographics + + + | Address | [address] | | | [place] [address] | + + + | Home Phone [...] + | Author | [facility] | | | and [place] | + + + | Organization | [facility] | | [...] [place] | | | | | [place] [address] | | + + + + + | Hunter Jackson | ECON | [place] | | + + + + + | Wes Jackson | ECON | [place], [place] | | + + + + + | Oziel Jackson | ECON | [place], [place] | | + + + + + Care Team Providers + +------+ + | Care Colorer Name | Role | Phone | + [...] | Visit | ORTHOPEDIC SURGERY | [address] [facility] | carpometacarpal | | | | [facility] | [facility] [place] | ([facility]) joint of right | | | | [place], [place] | [address] | thumb (Primary Dx); | | | | [address] | | Rotator cuff tear | | | | [phone] | | arthropathy of right | | [...] [place] | | | | | | [address] | | | | | | | | +--------+---------+ + + + | 11/21/ | Office | Cardiology | Yesi, | | | 2019 | Visit | | JOSE ALBERTO Linder [address] | | | | | | [place], | | | | | | [place] [address] | | | | | | [phone] | | | | | | | [...]
--- OUTSIDE RECORDS SUMMARY | ~2019-04-12 | XMS | Encounter Summary ---
Demographics + + + | Address | [address] | | | [place] [address] | + + + | Home Phone [...] Author | [facility] | | | and [place] | + + + | Organization | [facility] [...] | | | | | [place] [address] | | + + + + + | Hunter Jackson | ECON | [place] | | + + + + + | Wes Jackson | ECON | [place], [place] | | + + + + + | Oziel Jackson | ECON | [place], [place] | | + + + + + Care Team Providers + +------+ + | Care Lead Burner Apprentice Name | Role | Phone | [...] | (Screening) (Log | | | | [place], | [place], | from 06/01/15 till | | | | [place] [address] | [place] [address] | 06/13/15) | | | | [phone] | [phone] | | | | | | | [...] STREET[place] | | | | | | [address] | | | | | | | | +--------+---------+ + + + | 11/21/ | Office | Cardiology | Yesi, | | | 2020 | Visit | | JOSE ALBERTO Linder [address] | | | | | | [place], | | | | | | [place] [address] | | | | | | [phone] | | | | | | | | +--------+---------+ + + + documented as of this encounter Visit Diagnoses + + | Diagnosis | + + | Essential hypertension - Primary Unspecified essential hypertension | + + documented in this encounter"
--- OUTSIDE RECORDS SUMMARY | ~2019-04-12 | XMS | Encounter Summary ---
Demographics + + + | Address | [address] | | | [place] [address] | + + + | Home Phone [...] | Author | [facility] | | | and [place] | + + + | Organization | [facility] | | | [...] | | | | | [place] [address] | | + + + + + | Hunter Jackson | ECON | [place] | | + + + + + | Wes Jackson | ECON | [place], [place] | | + + + + + | Oziel Jackson | ECON | [place], [place] | | + + + + + Care Team Providers + +------+ + | Care Marine Steam Fitter Name | Role | Phone | + [...] + + | 01/31/ | Office | [facility] | Rodolfo Cruz, | Insomnia (Primary | | 2015 | Visit | MEDICINE [address] | MD [address] | Dx); Neuropathy; | | | | Street [place] | [place], [place] | Fatigue; Tinea | | | | [place] [address] | [id number] | corporis; | | | | [phone] | | Generalized anxiety | | | [...] in the back started last Friday in [facility]. 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
--- OUTSIDE RECORDS SUMMARY | ~2019-04-12 | XMS | Encounter Summary ---
Demographics + + + | Address | [address] | | | [place] [address] | + + + | Home Phone [...] | Author | [facility] | | | and [place] | + + + | Organization | [facility] [...] | | | | | [place] [address] | | + + + + + | Hunter Jackson | ECON | [place] | | + + + + + | Wes Jackson | ECON | [place], [place] | | + + + + + | Oziel Jackson | ECON | [place], [place] | | + + + + + Care Team Providers + +------+ + | Care Solution Professional Name | Role | Phone | [...] + + | 04/20/ | Telephone | [facility] | Rodolfo Cruz, | Appointment | | 2013 | | MEDICINE [address] [place] [address] | MD [address] | | | | | [address] | [place] [address] | | | | | [place] [address] | [address] | | | | | [phone] | | | +--------+ + + + [...] | | | | | | [place] [address] | | | | | | [phone] | | | | | | | | +--------+---------+ + + + documented as of this encounter Visit Diagnoses Not on filedocumented in this encounter"
--- OUTSIDE RECORDS SUMMARY | ~2019-04-12 | XMS | Encounter Summary ---
Demographics + + + | Address | [address] | | | [place] [address] | + + + | Home Phone [...] | Author | [facility] | | | and [place] | + + + | Organization | [facility] [...] | | | | | [place] [address] | | + + + + + | Hunter Jackson | ECON | [place] | | + + + + + | Wes Jackson | ECON | [place], [place] | | + + + + + | Oziel Jackson | ECON | [place], [place] | | + + + + + Care Team Providers + +------+ + | Care Baggage Inspector Name | Role | Phone | [...] | 02/11/ | Refill | [facility] | Rodolfo Cruz, | Medication Refill | | 2016 | | MEDICINE [address] | MD [address] | | | | | [place] | [place] [address] | | | | | [place] [address] | [address] | | | | | [phone] | | | +--------+--------+ + + + [...] | | | | | | [place] [address] | | | | | | [phone] | | | | | | | | +--------+---------+ + + + documented as of this encounter Visit Diagnoses Not on filedocumented in this encounter"
--- OUTSIDE RECORDS SUMMARY | ~2019-04-12 | XMS | Encounter Summary ---
Demographics + + + | Address | [address] | | | [place] [address] | + + + | Home Phone [...] Author | [facility] | | | and [place] | + + + | Organization | [facility] | | | [...] | | | | | [place] [address] | | + + + + + | Hunter Jackson | ECON | [place] | | + + + + + | Wes Jackson | ECON | [place], [place] | | + + + + + | Oziel Jackson | ECON | [place], [place] | | + + + + + Care Team Providers + +------+ + | Care Skein Winder Name | Role | Phone | + +------+ + | Rodolfo Cruz MD | PCP | | + +------+ + Encounter Details +--------+ + + + + | Date | Type | Department | Care Team | Description | +--------+ + + + + | 03/21/ | Abstract | [facility] | Rodolfo Cruz, | | | 2013 | | MEDICINE [address] [place] [address] | MD [address] | | | | | [facility] | [place] | | | | | [place] [address] | [address] | | | | | [phone] | | | +--------+ + + + [...] [place] | | | | | | [address] | | | | | | | | +--------+---------+ + + + | 11/21/ | Office | Cardiology | Yesi, | | | 2019 | Visit | | JOSE ALBERTO Linder [address] | | | | | | [place], | | | | | | [place] [address] | | | | | | [phone] | | | | | | | [...]
--- OUTSIDE RECORDS SUMMARY | ~2019-04-12 | XMS | Encounter Summary ---
Demographics + + + | Address | [address] | | | [place] [address] | + + + | Home Phone [...] | Author | [facility] | | | and [place] | + + + | Organization | [facility] | [...] [place] | | | | | [place] [address] | | + + + + + | Hunter Jackson | ECON | [place] | | + + + + + | Wes Jackson | ECON | [place], [place] | | + + + + + | Oziel Jackson | ECON | [place], [place] | | + + + + + Care Team Providers + +------+ + | Care Healthcare Financial Analyst Name | Role | Phone | [...] Visit | ORTHOPEDIC SURGERY | [address] [facility] | carpometacarpal | | | | [address] [facility] | [place] [facility] [place] | (CMC) joint of right | | | | [place], [place] | [address] | thumb (Primary Dx); | | | | [address] | | Rotator cuff tear | | | | [phone] | | arthropathy of right | | [...] [place] | | | | | | [address] | | | | | | | | +--------+---------+ + + + | 11/21/ | Office | Cardiology | Yesi, | | | 2019 | Visit | | JOSE ALBERTO Linder [address] | | | | | | [place], | | | | | | [place] [address] | | | | | | [phone] | | | | | | | [...] (Comment | | Intramuscular, ONCE, [facility] 01/15/18 | | AM PDT | [...] | | | | ONCE, [facility] 01/15/18 at 1130, For 1 | | | | | | | dose, Shake well. Not for IV | | | | | | | use., | | | | | | + +-------+ +-------+---+ + +---+---+ | | | +---+---+ documented in this encounter
--- OUTSIDE RECORDS SUMMARY | ~2019-04-12 | XMS | Encounter Summary ---
Demographics + + + | Address | [address] | | | [place] [address] | + + + | Home Phone [...] | Author | [facility] | | | and [place] | + + + | Organization | [facility] | | [...] | | | | | [place] [address] | | + + + + + | Hunter Jackson | ECON | [place] | | + + + + + | Wes Jackson | ECON | [place], [place] | | + + + + + | Oziel Jackson | ECON | [place], [place] | | + + + + + Care Team Providers + +------+ + | Care Magazine Supervisor Name | Role | Phone | [...] fasting labs prior | | | | [place], | [place], | to appt) | | | | [place] [address] | [place] [address] | | | | | [phone] | [phone] | | | | | | | [...] STREET[place] | | | | | | [address] | | | | | | | | +--------+---------+ + + + | 11/21/ | Office | Cardiology | Yesi, | | | 2019 | Visit | | JOSE ALBERTO Linder [address] | | | | | | [place], | | | | | | [place] [address] | | | | | | [phone] | | | | | | | [...] [address] | [place] | [phone] | | [facility] | | [address] | | | - LABORATORY | | | | + + + + + documented in this encounter Visit Diagnoses + + | Diagnosis | + + | Essential hypertension - Primary Unspecified essential hypertension | + + | Hyperlipidemia Other and unspecified hyperlipidemia | + + documented in this encounter"
--- OUTSIDE RECORDS SUMMARY | ~2019-04-12 | XMS | Encounter Summary ---
Demographics + + + | Address | [address] | | | [place] [address] | + + + | Home Phone [...] Author | [facility] | | | and [place] | + + + | Organization | [facility] | [...] [place] | | | | | [place] [address] | | + + + + + | Hunter Jackson | ECON | [place] | | + + + + + | Wes Jackson | ECON | [place], [place] | | + + + + + | Oziel Jackson | ECON | [place], [place] | | + + + + + Care Team Providers + +------+ + | Care Cabinetmaker Maintenance Name | Role | Phone | + [...] | carpometacarpal | | | | [address] [facility] | [place] | (CMC) joint of right | | | | [place], [place] | [address] | thumb (Primary Dx); | | | | [address] | | Rotator cuff tear | | | | [phone] | | arthropathy of right | | [...] [place]REET[place] | | | | | | [address] | | | | | | | | +--------+---------+ + + + | 11/21/ | Office | Cardiology | Yesi, | | | 2019 | Visit | | JOSE ALBERTO Linedr [address] | | | | | | [place], | | | | | | [place] [address] | | | | | | [phone] | | | | | | | [...]
--- OUTSIDE RECORDS SUMMARY | ~2019-04-12 | XMS | Encounter Summary ---
Demographics + + + | Address | [address] | | | [place] [address] | + + + | Home Phone [...] | [facility] | | | and [place]ana | + + + | Organization | [facility] [...] S[place] | | | | | [place] [address] | | + + + + + | Hunter Jackson | ECON | [place] | | + + + + + | Wes Jackson | ECON | [place], [place] | | + + + + + | Oziel Jackson | ECON | [place], [place] | | + + + + + Care Team Providers + +------+ + | Care Final Operations Technician Name | Role | Phone | [...] | Ulysses Rios MD | [address] | | | | | right | [address] | [place], | | | | | shoulder | [place] | [place] | | | | | pain | [place] | [address] | | | | | Procedures | [address] | Phone: | | | | | MRI Shoulder | Phone: | [phone] | | | | | Right wo | [phone] | Fax: | | | | | Contrast | Fax: | [phone] | | | | | | [phone] | | +--------+--------+ + + + + Reason for Visit + + + | Reason | Comments | + + + | Appointment | | + + + Encounter Details +--------+ + + + + | Date | Type | Department | Care Team | Description | +--------+ + + + + | 09/16/ | Telephone | [facility] | Ulysses Jensen, | Appointment | | 2016 | | ORTHOPEDIC SURGERY | [address] [facility] | | | | | [address] [place] [address] | [place], [place] | | | | | [place], [place] | [address] | | | | | [address] | | | | | | [phone] | | | +--------+ + + + [...] STREETER | | | | | | 522332 | | | | | | | | +--------+---------+ + + + | 11/21/ | Office | Cardiology | Yesi, | | | 2019 | Visit | | JOSE ALBERTO Linder [address] | | | | | | [place], | | | | | | [place] [address] | | | | | | [phone] | | | | | | | [...] Evaluate for Rotator Cuff Tear. COMPARISON: | [facility] | | None. PROTOCOL: Axial proton density fat sat, coronal proton | [facility] | | density fat sat, sagittal [...] + | Performing | Address | City/State/[facility] | Phone Number | | Organization | | | | + + + + + | [address] | [address] | [place] | [phone] | | [facility] | | [address] | | | - IMAGING | | | | + + + + + documented in this encounter Visit Diagnoses + + | Diagnosis | + + | Chronic right shoulder pain - Primary Pain in joint, shoulder region | + + documented in this encounter"
--- OUTSIDE RECORDS SUMMARY | ~2019-04-12 | XMS | Encounter Summary ---
Demographics + + + | Address | [address] | | | [place] [address] | + + + | Home Phone [...] | Author | [facility] | | | and [place]ana | + + + | Organization | [facility] | | | and [...] | | | | | [place] [address] | | + + + + + | Hunter Jackson | ECON | [place] | | + + + + + | Wes Jackson | ECON | [place], [place] | | + + + + + | Oziel Jackson | ECON | [place], [place] | | + + + + + Care Team Providers + +------+ + | Care Candy Bar Attendant Name | Role | Phone | [...] | Visit | ORTHOPEDIC SURGERY | [address] [facility] | syndrome of right | | | | [address] [facility] | [place] [address] | shoulder (Primary | | | | [place], [place] | [address] | Dx); [facility] arthritis | | | | [address] | | | | | | [phone] | | | +--------+---------+ + + + [...] [place] | | | | | | [address] | | | | | | | | +--------+---------+ + + + | 11/21/ | Office | Cardiology | Yesi, | | | 2019 | Visit | | JOSE ALBERTO Linder [address] | | | | | | [place], | | | | | | [place] [address] | | | | | | [phone] | | | | | | | [...] | | | | | modification) on [facility] 08/05/13 at | | | | [...] PDT | | | | | ONCE, [facility] 08/05/13 at 1200, For 1 | | | | | | | dose, Shake well. Not for IV | | | | | | | use., | | | | | | + +-------+ +-------+---+---+ +---+---+ | | | +---+---+ documented in this encounter
--- OUTSIDE RECORDS SUMMARY | ~2019-04-12 | XMS | Encounter Summary ---
Demographics + + + | Address | [address] | | | [place] [address] | + + + | Home Phone [...] Author | [facility] | | | and [place]ana | + + + | Organization | [facility] | [...] SWAIN | | | | | [place] [address] | | + + + + + | Hunter Jackson | ECON | [place] | | + + + + + | Wes Jackson | ECON | [place], [place] | | + + + + + | Oziel Jackson | ECON | [place], [place] | | + + + + + Care Team Providers + +------+ + | Care Marketing Clerk Name | Role | Phone | [...] + + | 03/22/ | Telephone | [facility] | Kellie Gunderson PA | New Patient | | 2019 | | [facility] | [address] [facility] | | | | | [address] | [address] [place], [place] | | | | | [place] | [address] | | | | | [address] | | | | | | [phone] | | | +--------+ + + + [...] | | | | | | [place] [address] | | | | | | [phone] | | | | | | | | +--------+---------+ + + + documented as of this encounter Visit Diagnoses Not on filedocumented in this encounter"
--- OUTSIDE RECORDS SUMMARY | ~2019-04-12 | XMS | Encounter Summary ---
Demographics + + + | Address | [address] | | | [place] [address] | + + + | Home Phone [...] | Author | [facility] | | | and [place] | + + + | Organization | [facility] | | | [...] | | | | | [place] [address] | | + + + + + | Hunter Jackson | ECON | [place] | | + + + + + | Wes Jackson | ECON | [place], [place] | | + + + + + | Oziel Jackson | ECON | [employer], [place] | | + + + + + Care Team Providers + +------+ + | Care Ramp And Cargo Supervisor Name | Role | Phone | [...] + + | 04/09/ | [facility] | [facility] | Ulysses Jensen, | [facility], | | 2011 | Visit | ORTHOPEDIC SURGERY | [address] | thumb, degenerative | | | | [address] | [facility] [place] | (Primary Dx) | | | | [place] | [address] | | | | | [address] | | | | | | [phone] | | | +--------+---------+ + + + [...] first [facility] sarah nt injection. She has pvln-nj-jalw arthrosis and is actually doing quite well [...] STREETER | | | | | | [id number] | | | | | | | | +--------+---------+ + + + | 11/21/ | Office | Cardiology | Yesi, | | | 2019 | Visit | | JOSE ALBERTO Linder [address] | | | | | | [place] | | | | | | [place] [address] | | | | | | [phone] | | | | | | | | +--------+---------+ + + + documented as of this encounter Visit Diagnoses + + | Diagnosis | + + | [facility] arthritis, thumb, degenerative - Primary Localized osteoarthrosis not specified | | whether primary or secondary, hand | + + documented in this encounter
--- OUTSIDE RECORDS SUMMARY | ~2019-04-12 | XMS | Encounter Summary ---
Demographics + + + | Address | [address] | | | [place] [address] | + + + | Home Phone [...] + | Author | [facility] | | | and [place] | + + + | Organization | [facility] | [...] S[place] | | | | | [place] [address] | | + + + + + | Hunter Jackson | ECON | [place] | | + + + + + | Wes Jackson | ECON | [place], [place] | | + + + + + | Oziel Jackson | ECON | [place], [place] | | + + + + + Care Team Providers + +------+ + | Care Drywaller Name | Role | Phone | + [...] MED CTR SLEEP | MD Allison [address] | CANCEL SLEEP | | | | [facility] [address] [place] | [place] [address] [place] | STUDY/NO LONGER | | | | [place], [place] | [place] [address] | WANTS IT) | | | | [address] | [phone] | | | | | [phone] | | | +--------+ + + + [...] STREETER | | | | | | [address] | | | | | | | | +--------+---------+ + + + | 11/21/ | Office | Cardiology | Yesi, | | | 2020 | Visit | | JOSE ALBERTO Linder [address] | | | | | | [place], | | | | | | [place] [address] | | | | | | [phone] | | | | | | | | +--------+---------+ + + + documented as of this encounter Visit Diagnoses Not on filedocumented in this encounter"
--- OUTSIDE RECORDS SUMMARY | ~2019-04-12 | XMS | Encounter Summary ---
Demographics + + + | Address | [address] | | | [place] [address] | + + + | Home Phone [...] + | Author | [facility] | | | and [place] | + + + | Organization | [facility] | [...] [place] | | | | | [place] [address] | | + + + + + | Hunter Jackson | ECON | [place] | | + + + + + | Wes Jackson | ECON | [place], [place] | | + + + + + | Oziel Jackson | ECON | [place], [place] | | + + + + + Care Team Providers + +------+ + | Care Staff Internist Office Based Only Name | Role | Phone | + [...] due for fasting | | | | [place], | [place], | labs) | | | | [place] [address] | [place] [address] | | | | | [phone] | [phone] | | | | | | | [...] STREETER | | | | | | [address] | | | | | | | | +--------+---------+ + + + | 11/21/ | Office | Cardiology | Yesi, | | | 2020 | Visit | | JOSE ALBERTO Linder [address] | | | | | | [place], | | | | | | [place] [address] | | | | | | [phone] | | | | | | | [...]
--- OUTSIDE RECORDS SUMMARY | ~2019-04-12 | XMS | Encounter Summary ---
Demographics + + + | Address | [address] | | | [place] [address] | + + + | Home Phone [...] Author | [facility] | | | and [place] | + + + | Organization | [facility] | [...] [place] | | | | | [place] [address] | | + + + + + | Hunter Jackson | ECON | [place] | | + + + + + | Wes Jackson | ECON | [place], [place] | | + + + + + | Oziel Jackson | ECON | [place], [place] | | + + + + + Care Team Providers + +------+ + | Care Die Casting Machine Setter Name | Role | Phone | [...] of right | [address] | [place] [address] | | | | | shoulder | [place], | Phone: | | | | | Follow Up | [place] [address] | [phone] | | | | | Right | Phone: | Fax: | | | | | Shoulder and | [phone] | [phone] | | | | | Right [facility] | Fax: | | | | | | Injection | [phone] | | | | | | Last [...] Visit | ORTHOPEDIC SURGERY | MD [address] [facility] | carpometacarpal | | | | [address] [facility] | [place] | (CMC) joint of right | | | | [place], [place] | [address] | thumb (Primary Dx); | | | | [address] | | Rotator cuff tear | | | | [phone] | | arthropathy of right | | [...] STREETER | | | | | | [address] | | | | | | | | +--------+---------+ + + + | 11/21/ | Office | Cardiology | Yesi, | | | 2019 | Visit | | JOSE ALBERTO Linder [address] | | | | | | [place], | | | | | | [place] [address] | | | | | | [phone] | | | | | | | [...]
--- OUTSIDE RECORDS SUMMARY | ~2019-04-12 | XMS | Encounter Summary ---
Demographics + + + | Address | [address] | | | [place] [address] | + + + | Home Phone [...] Author | [facility] | | | and [place] | + + + | Organization | [facility] | [...] [place] | | | | | [place] [address] | | + + + + + | Hunter Jackson | ECON | [place] | | + + + + + | Wes Jackson | ECON | [place], [place] | | + + + + + | Oziel Jackson | ECON | [place], [place] | | + + + + + Care Team Providers + +------+ + | Care Cushion Builder Name | Role | Phone | [...] | | | | | artery | [address] | [address] [place], | | | | | disease) | [place], | [place] [address] | | | | | Procedures | [place] [address] | Phone: | | | | | Has CAD and | Phone: | [phone] | | | | | needs to be | [phone] | Fax: | | | | | avaluated | Fax: | [phone] | | | | | for bypass | [phone] | | | | | | surgery. | | | +--------+--------+ + + + + Encounter Details +--------+---------+ + + + | Date | Type | Department | Care Team | Description | +--------+---------+ + + + | 10/31/ | Office | [facility] | Eze, | Coronary artery | | 2017 | Visit | [facility] | MD [address] | disease of [place] | | | | [facility] | [address] [place] | artery of [place] | | | | [address] | [id number] | heart with stable | | | | [place] | | angina pectoris | | | | [address] | | ([facility]) (Primary Dx) | | | | [phone] | | | +--------+---------+ + + + [...] STREETER | | | | | | [address] | | | | | | | | +--------+---------+ + + + | 11/21/ | Office | Cardiology | Yesi, | | | 2019 | Visit | | JOSE ALBERTO Linder [address] | | | | | | [place] | | | | | | [place] [address] | | | | | | [phone] | | | | | | | | +--------+---------+ + + + documented as of this encounter Visit Diagnoses + + | Diagnosis | + + | Coronary artery disease of [place] artery of [place] heart with stable angina pectoris | | (HCC) - Primary | + + documented in this encounter
--- OUTSIDE RECORDS SUMMARY | ~2019-04-12 | XMS | Encounter Summary ---
Demographics + + + | Address | [address] | | | [place] [address] | + + + | Home Phone [...] | Author | [facility] | | | and [place] | + + + | Organization | [facility] [...] [place] | | | | | [place] [address] | | + + + + + | Hunter Jackson | ECON | [place] | | + + + + + | Wes Jackson | ECON | [place], [place] | | + + + + + | Oziel Jackson | ECON | [place], [place] | | + + + + + Care Team Providers + +------+ + | Care Electric Welder Name | Role | Phone | + [...] | | | | | region | [address] | [place] [address] | | | | | Stenosis of | Phone: | 15 | | | | | cervical | [phone] | [place], [place] | | | | | spine DDD | Fax: | [address] | | | | | (degenerativ | [phone] | Phone: | | | | | e disc | | [phone] | | | | | disease), | | Fax: | | | | | cervical | | [phone] | | | | | Chronic | [...] + + | 07/22/ | Office | [facility] | Harsha Selby | Chronic midline | | 2018 | Visit | PHYSIATRY [address] | TMD [address] | thoracic back pain | | | | [place], | [address] [place] [address] | (Primary Dx); | | | | [place] [address] | [address] | Cervical | | | | [phone] | | radiculopathy; | | | | [...] encounter Patient Instructions Patient Instructions Venita Ray, Internet Salesperson - 07/22/2017 10:30 AM PDTDiscus s with your primary care provider about the use of Flector patch. Physical therapy has been prescribed. Please participate in physical therapy. If you have not be contacted for an appointment with physical therapy within one week, please contact located within [facility]. Once you have completed physical therapy please continue the home exercise progr am as outline by physical therapy, indefinitely. Return to clinic if symptoms worsen or fail to improve. documented in this encounter Progress Notes Harsha Selby MD - 07/22/2017 10:30 AM PDT Harsha Selby MD [address] [facility], [address] [place] [address] FAX: PHYSICAL MEDICINE AND REHABILITATION [...] of mild weakness on the left with closet builder strength DATABASE: Cervical MRI competed 07/18/16 was [...] STREETER | | | | | | [id number] | | | | | | | | +--------+---------+ + + + | 11/21/ | Office | Cardiology | Yesi, | | 2019 | Visit | | JOSE ALBERTO Linder [address] | | | | | | [place], | | | | | | [place] [address] | | | | | | [phone] | | | | | | | [...]
--- OUTSIDE RECORDS SUMMARY | ~2019-04-12 | XMS | Encounter Summary ---
Demographics + + + | Address | [address] | | | [place] [address] | + + + | Home Phone [...] + | Author | [facility] | | | and [place]ana | + + + | Organization | [facility] | | [...] | | | | | [place] [address] | | + + + + + | Hunter Jackson | ECON | [place] | | + + + + + | Wes Jackson | ECON | [place], [place] | | + + + + + | Oziel Jackson | ECON | [place], [place] | | + + + + + Care Team Providers + +------+ + | Care Grinder Operator External Tool Name | Role | Phone | + [...] | 01/10/ | Refill | [facility] | Yesi, | Medication Refill | | 2015 | | CARDIOLOGY [address] | JOSE ALBERTO Linder [address] | | | | | [place], | [place], | | | | | [place] [address] | [place] [address] | | | | | [phone] | [phone] | | | | | | | [...] STREETER | | | | | | [address] | | | | | | | | +--------+---------+ + + + | 11/21/ | Office | Cardiology | Yesi, | | | 2019 | Visit | | JOSE ALBERTO Linder [address] | | | | | | [place] | | | | | | [place] [address] | | | | | | [phone] | | | | | | | | +--------+---------+ + + + documented as of this encounter Visit Diagnoses Not on filedocumented in this encounter"
--- OUTSIDE RECORDS SUMMARY | ~2019-04-12 | XMS | Encounter Summary ---
Demographics + + + | Address | [address] | | | [place] [address] | + + + | Home Phone [...] | Author | [facility] | | | and [place]ana | + + + | Organization | [facility] [...] | | | | | [place] [address] | | + + + + + | Hunter Jackson | ECON | [place] | | + + + + + | Wes Jackson | ECON | [place], [place] | | + + + + + | Oziel Jackson | ECON | [place], [place] | | + + + + + Care Team Providers + +------+ + | Care Mortgage Protection Specialist Name | Role | Phone | [...] | 11/06/ | Refill | [facility] | Rodolfo Cruz, | Medication Refill | | 2016 | | MEDICINE [address] | [address] | | | | | [place] | [place] [address] | | | | | [place] [address] | [address] | | | | | [phone] | | | +--------+--------+ + + + [...] | | | | | | [place] [address] | | | | | | [phone] | | | | | | | | +--------+---------+ + + + documented as of this encounter Visit Diagnoses + + | Diagnosis | + + | Hyperglycemia - Primary Other abnormal glucose | + + documented in this encounter"
--- OUTSIDE RECORDS SUMMARY | ~2019-04-12 | XMS | Encounter Summary ---
Demographics + + + | Address | [address] | | | [place] [address] | + + + | Home Phone [...] | [facility] | | | and [place]ana | + + + | Organization | [facility] | | | [...] | | | | | [place] [address] | | + + + + + | Hunter Jackson | ECON | [place] | | + + + + + | Wes Jackson | ECON | [place], [place] | | + + + + + | Oziel Jackson | ECON | [place], [place] | | + + + + + Care Team Providers + +------+ + | Care Fence Repairman Name | Role | Phone | + [...] + + | 12/14/ | Telephone | [facility] | Rodolfo Cruz, | Labs Only | | 2012 | | MEDICINE [place] | [address] | | | | | [address] | [place] [address] | | | | | [place] | [address] | | | | | [address] | | | | | | [phone] | | | +--------+ + + + [...] | | | | | | [place] [address] | | | | | | [phone] | | | | | | | | +--------+---------+ + + + documented as of this encounter Visit Diagnoses Not on filedocumented in this encounter"
--- OUTSIDE RECORDS SUMMARY | ~2019-04-12 | XMS | Encounter Summary ---
Demographics + + + | Address | [address] | | | [place] [address] | + + + | Home Phone [...] | Author | [facility] | | | and [place] | + + + | Organization | [facility] | [...] | | | | | [place] [address] | | + + + + + | Hunter Jackson | ECON | [place] | | + + + + + | Wes Jackson | ECON | [place], [place] | | + + + + + | Oziel Jackson | ECON | [place], [place] | | + + + + + Care Team Providers + +------+ + | Care Wage And Hour Investigator Name | Role | Phone | + [...] | [address] | | | | | [address] | | | | | | [phone] | | | +--------+--------+ + + + [...] STREETER | | | | | | [address] | | | | | | | | +--------+---------+ + + + | 11/21/ | Office | Cardiology | Yesi, | | | 2019 | Visit | | JOSE ALBERTO Linder [address] | | | | | | [place] | | | | | | [place] [address] | | | | | | [phone] | | | | | | | | +--------+---------+ + + + documented as of this encounter Visit Diagnoses Not on filedocumented in this encounter"
--- OUTSIDE RECORDS SUMMARY | ~2019-04-12 | XMS | Encounter Summary ---
Demographics + + + | Address | [address] | | | [place] [address] | + + + | Home Phone [...] Author | [facility] | | | and [place] | + + + | Organization | [facility] | [...] [place] | | | | | [place] [address] | | + + + + + | Hunter Jackson | ECON | [place] | | + + + + + | Wes Jackson | ECON | [place], [place] | | + + + + + | Oziel Jackson | ECON | [place], [place] | | + + + + + Care Team Providers + +------+ + | Care Regional Administrative Assistant Name | Role | Phone | + +------+ + | Gunderson, Klelie PA | PCP | | + +------+ + Encounter Details +--------+ + + + + | Date | Type | Department | Care Team | Description | +--------+ + + + + | 10/16/ | Hospital | [facility] | Irina Simms, | Chest pain due to | | 2017 | Encounter | MED CTR CV INTRA OP | [address] | myocardial ischemia, | | | | [address] | [place], | unspecified | | | | [place], [place] | [place] [address] | ischemic chest pain | | | | [address] | [phone] | type (HCC) | | | | [phone] | | | +--------+ + + + [...] You cannot be awakened Date Last Reviewed: 02/27/201619991701-6912 [employer]. [address] [place] [address], [place] [address]. All righ ts reserved. This information is [...] by your healthcare provider Date Last Reviewed: 07/07/201319991403-9734 [employer]. [address] [place] [address], [place] [address]. All righ ts reserved. This information is [...] STREETER | | | | | | [address] | | | | | | | | +--------+---------+ + + + | 11/21/ | Office | Cardiology | Yesi | | | 2019 | Visit | | JOSE ALBERTO Linder [address] | | | | | | [place] | | | | | | [place] [address] | | | | | | [phone] | | | | | | | [...] (1935) OF PROCEDURE: | | | 10/16/2016 BSA/AML COMPLIANCE OFFICER: Irina Simms MD PROCEDURES | | | [...]
--- OUTSIDE RECORDS SUMMARY | ~2019-04-12 | XMS | Encounter Summary ---
Demographics + + + | Address | [address] | | | [place] [address] | + + + | Home Phone [...] [facility] | | | and [place] | + + + | Organization | [facility] [...] | | | | | [place] [address] | | + + + + + | Hunter Jackson | ECON | [place] | | + + + + + | Wes Jackson | ECON | [place], [place] | | + + + + + | Oziel Jackson | ECON | [place], [place] | | + + + + + Care Team Providers + +------+ + | Care Airplane And Engine Inspector Name | Role | Phone | [...] | Visit | ORTHOPEDIC SURGERY | [facility] | syndrome of right | | | | [facility] | [place] [address] | shoulder (Primary | | | | [place], [place] | [address] | Dx); [facility] arthritis | | | | [address] | | | | | | [phone] | | | +--------+---------+ + + + [...] [place] | | | | | | [address] | | | | | | | | +--------+---------+ + + + | 11/21/ | Office | Cardiology | Yesi, | | | 2019 | Visit | | JOSE ALBERTO Linder [address] | | | | | | [place], | | | | | | [place] [address] | | | | | | [phone] | | | | | | | [...] | | | | | modification) on [facility] 08/05/13 at | | | | [...] | | | | ONCE, [facility] 08/05/13 at 1200, For 1 | | | | | | | dose, Shake well. Not for IV | | | | | | | use., | | | | | | + +-------+ +-------+---+---+ +---+---+ | | | +---+---+ documented in this encounter
--- OUTSIDE RECORDS SUMMARY | ~2019-04-12 | XMS | Encounter Summary ---
Demographics + + + | Address | [address] | | | [place] [address] | + + + | Home Phone [...] + | Author | [facility] | | | and [place] | + + + | Organization | [facility] [...] | | | | | [place] [address] | | + + + + + | Hunter Jackson | ECON | [place] | | + + + + + | Wes Jackson | ECON | [place], [place] | | + + + + + | Oziel Jackson | ECON | [place], [place] | | + + + + + Care Team Providers + +------+ + | Care Assayer Name | Role | Phone | + [...] + + | 04/09/ | Telephone | [facility] | Shahana Rodriguez | Flu Vaccine | | 2011 | | MEDICINE [address] RN | | | | | [place] | | | | | | [place] [address] | | | | | | [phone] | | | +--------+ + + + [...] | | | | | | [place] [address] | | | | | | [phone] | | | | | | | | +--------+---------+ + + + documented as of this encounter Visit Diagnoses Not on filedocumented in this encounter"
--- OUTSIDE RECORDS SUMMARY | ~2019-04-12 | XMS | Encounter Summary ---
Demographics + + + | Address | [address] | | | [place] [address] | + + + | Home Phone [...] Author | [facility] | | | and [place] | + + + | Organization | [facility] | | [...] | | | | | [place] [address] | | + + + + + | Hunter Jackson | ECON | [place] | | + + + + + | Wes Jackson | ECON | [place], [place] | | + + + + + | Oziel Jackson | ECON | [place], [place] | | + + + + + Care Team Providers + +------+ + | Care Meter Setter Name | Role | Phone | [...] | [address] | | | | | [address] | | | | | | [phone] | | | +--------+--------+ + + + [...] | | | | | | [place] [address] | | | | | | [phone] | | | | | | | | +--------+---------+ + + + documented as of this encounter Visit Diagnoses Not on filedocumented in this encounter"
--- OUTSIDE RECORDS SUMMARY | ~2019-04-12 | XMS | Encounter Summary ---
Demographics + + + | Address | [address] | | | [place] [address] | + + + | Home Phone [...] | [facility] | | | and [place] | + + + | Organization | [facility] [...] | | | | | [place] [address] | | + + + + + | Hunter Jackson | ECON | [place] | | + + + + + | Wes Jackson | ECON | [place], [place] | | + + + + + | Oziel Jackson | ECON | [place], [place] | | + + + + + Care Team Providers + +------+ + | Care Compliance Counsel Name | Role | Phone | + [...] | | 2015 | Visit | MEDICINE [facility] Sravan | MD [address] | hypertension | | | | [address] | [place] | (Primary Dx); | | | | [place] [address] | [address] | Depression with | | | | [phone] | | anxiety; Other | | | [...] and no changes required: Born in [facility] since 1965 Marital status: Children: 6, 5 living, 10 grandchildren 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 | [place] | [phone] | | [facility] | | [address] | | | - LABORATORY | | [...] [address] | [place] | [phone] | | [facility] | | [address] | | | - LABORATORY | | [...]
--- OUTSIDE RECORDS SUMMARY | ~2019-04-12 | XMS | Encounter Summary ---
Demographics + + + | Address | [address] | | | [place] [address] | + + + | Home Phone [...] Author | [facility] | | | and [place] | + + + | Organization | [facility] | | | and [...] | | | | | [place] [address] | | + + + + + | Hunter Jackson | ECON | [place] | | + + + + + | Wes Jackson | ECON | [place], [place] | | + + + + + | Oziel Jackson | ECON | [place], [place] | | + + + + + Care Team Providers + +------+ + | Care Panel Installer Name | Role | Phone | [...] | 04/25/ | Refill | [facility] | Rodolfo Cruz, | Medication Refill | | 2013 | | MEDICINE [address] | MD [address] | | | | | [place] | [place] | | | | | [place] [address] | [address] | | | | | [phone] | | | +--------+--------+ + + + [...] | | | | | | [place] [address] | | | | | | [phone] | | | | | | | | +--------+---------+ + + + documented as of this encounter Visit Diagnoses + + | Diagnosis | + + | Insomnia - Primary Insomnia, unspecified | + + documented in this encounter"
--- OUTSIDE RECORDS SUMMARY | ~2019-04-12 | XMS | Encounter Summary ---
Demographics + + + | Address | [address] | | | [place] [address] | + + + | Home Phone [...] Author | [facility] | | | and [place] | + + + | Organization | [facility] | [...] | | | | | [place] [address] | | + + + + + | Hunter Jackson | ECON | [place] | | + + + + + | Wes Jackson | ECON | [place], [place] | | + + + + + | Oziel Jackson | ECON | [place], [place] | | + + + + + Care Team Providers + +------+ + | Care Histotechnologist Supervisor Name | Role | Phone | [...] | (Screening) (log | | | | [place], | [place], | from 06/23/15 till | | | | [place] [address] | [place] [address] | 07/07/15) | | | | [phone] | [phone] | | | | | | | [...] STREETER | | | | | | [address] | | | | | | | | +--------+---------+ + + + | 11/21/ | Office | Cardiology | Yesi, | | | 2020 | Visit | | JOSE ALBERTO Linder [address] | | | | | | [place], | | | | | | [place] [address] | | | | | | [phone] | | | | | | | | +--------+---------+ + + + documented as of this encounter Visit Diagnoses Not on filedocumented in this encounter"
--- OUTSIDE RECORDS SUMMARY | ~2019-04-12 | XMS | Encounter Summary ---
Demographics + + + | Address | [address] | | | [place] [address] | + + + | Home Phone [...] | Author | [facility] | | | and [place] | + + + | Organization | [facility] | | [...] | | | | | [place] [address] | | + + + + + | Hunter Jackson | ECON | [place] | | + + + + + | Wes Jackson | ECON | [place], [place] | | + + + + + | Oziel Jackson | ECON | [place], [place] | | + + + + + Care Team Providers + +------+ + | Care Naval Inspector Name | Role | Phone | + +------+ + | Rodolfo Cruz MD | PCP | | + +------+ + Reason for Visit + + + | Reason | Comments | + + + | Imaging Only | CT chest ab/pelvis with contrast | + + + Encounter Details +--------+ + + + + | Date | Type | Department | Care Team | Description | +--------+ + + + + | 11/08/ | Telephone | [facility] | Rodolfo Cruz, | Imaging Only (CT | | 2013 | | MEDICINE [address] | [address] | chest ab/pelvis with | | | | Street [place] | [place], [place] | contrast) | | | | [place] [address] | [address] | | | | | [phone] | | | +--------+ + + + [...] STREETER | | | | | | [address] | | | | | | | | +--------+---------+ + + + | 11/21/ | Office | Cardiology | Yesi | | | 2019 | Visit | | JOSE ALBERTO Linder [address] | | | | | | [place] | | | | | | [place] [address] | | | | | | [phone] | | | | | | | | +--------+---------+ + + + documented as of this encounter Visit Diagnoses Not on filedocumented in this encounter"
--- OUTSIDE RECORDS SUMMARY | ~2019-04-12 | XMS | Encounter Summary ---
Demographics + + + | Address | [address] | | | [place] [address] | + + + | Home Phone [...] + | Author | [facility] | | | and [place] | + + + | Organization | [facility] | | | and [place] | + + + | Address | Unknown | + + + | Phone | Unavailable | + + + Support + + + + + | Name | Relationship | Address | Phone | + + + + + | Osmin Jackson | ECON | [address] | | | | | [place] [address] | | + + + + + | Hunter Jackson | ECON | [place] | | + + + + + | Wes Jackson | ECON | [place], [place] | | + + + + + | Oziel Jackson | ECON | [place], [place] | | + + + + + Care Team Providers + +------+ + | Care Box Spring Maker Name | Role | Phone | + +------+ + | Kellie Gunderson | PCP | | + +------+ + Encounter Details +--------+ + + + + | Date | Type | Department | Care Team | Description | +--------+ + + + + | 11/18/ | Abstract | [facility] | Yesi, | | | 2018 | | CARDIOLOGY [address] | JOSE ALBRETO Linder [address] | | | | | [place], | [place], | | | | | [place] [address] | [place] [address] | | | | | [phone] | [phone] | | | | | | | [...] [address] | | | | | | [place] | | | | | | [place] [address] | | | | | | [phone] | | | | | | | [...]
--- OUTSIDE RECORDS SUMMARY | ~2019-04-12 | XMS | Encounter Summary ---
Demographics + + + | Address | [address] | | | [place] [address] | + + + | Home Phone [...] | | | | | [place] [address] | | + + + + + | Hunter Jackson | ECON | [place] | | + + + + + | Wes Jackson | ECON | [place], [place] | | + + + + + | Oziel Jackson | ECON | [place], [place] | | + + + + + Care Team Providers + +------+ + | Care Head Bookkeeper Name | Role | Phone | [...] + + | 10/06/ | Telephone | [facility] | Rodolfo Cruz, | Medication Prior | | 2013 | | MEDICINE [facility] Sravan | MD [address] | Authorization | | | | [place] | [place] [address] | ([employer]) | | | | [place] [address] | [address] | | | | | [phone] | | | +--------+ + + + [...] STREETER | | | | | | [address] | | | | | | | | +--------+---------+ + + + | 11/21/ | Office | Cardiology | Yesi, | | | 2019 | Visit | | JOSE ALBERTO Linder [address] | | | | | | [place] | | | | | | [place] [address] | | | | | | [phone] | | | | | | | | +--------+---------+ + + + documented as of this encounter Visit Diagnoses Not on filedocumented in this encounter"
--- OUTSIDE RECORDS SUMMARY | ~2019-04-12 | XMS | Encounter Summary ---
Demographics + + + | Address | [address] | | | [place] [address] | + + + | Home Phone [...] | Author | [facility] | | | and [place] | + + + | Organization | [facility] | [...] | | | | | [place] [address] | | + + + + + | Hunter Jackson | ECON | [place] | | + + + + + | Wes Jackson | ECON | [place], [place] | | + + + + + | Oziel Jackson | ECON | [place], [place] | | + + + + + Care Team Providers + +------+ + | Care Overhead Garage Door Hanger Name | Role | Phone | + +------+ + | Rodolfo Cruz MD | PCP | | + +------+ + Encounter Details +--------+ + + + + | Date | Type | Department | Care Team | Description | +--------+ + + + + | 09/25/ | Hospital | [facility] | Rodolfo Cruz, | Essential | | 2016 | Encounter | MED CTR LABORATORY | MD Raya [address] | hypertension; | | | | [address] [place] | [place], [place] | Hyperlipidemia; | | | | [place], [place] | [address] | Pre-procedure lab | | | | [address] | | exam; Other | | | | [phone] | | specified | | | | [...] + + + +---------+ + + | [place] 3 1000 MG | Take by mouth. [...] [place] | | | | | | [address] | | | | | | | | +--------+---------+ + + + | 11/21/ | Office | Cardiology | Yesi, | | | 2019 | Visit | | JOSE ALBERTO Linder [address] | | | | | | [address] [place], | | | | | | [place] [address] | | | | | | [phone] | | | | | | | [...] + | [address] | [address] | [place] | [phone] | | [facility] | | [address] | | | - LABORATORY | | [...] mL/min/1.73m2 | [facility] | | | GERMAN | RATE,ESTIMATED | | MEDICAL | | | | mL/min/1.53c8Rdzf than | | CENTER - | | [...] + | [facility] | [address] | [place] | [phone] | | [facility] | | [address] | | | - LABORATORY | | [...] + | [facility] | [address] | [place] | [phone] | | [facility] | | [address] | | | - LABORATORY | | [...] [address] | [place] | [phone] | | [facility] | | [address] | | | - LABORATORY | | [...]
--- OUTSIDE RECORDS SUMMARY | ~2019-04-12 | XMS | Encounter Summary ---
Demographics + + + | Address | [address] | | | [place] [address] | + + + | Home Phone [...] | Author | [facility] | | | and [place] | + + + | Organization | [facility] | | [...] | | | | | [place] [address] | | + + + + + | Hunter Jackson | ECON | [place] | | + + + + + | Wes Jackson | ECON | [place], [place] | | + + + + + | Oziel Jackson | ECON | [place], [place] | | + + + + + Care Team Providers + +------+ + | Care Gi Physician Name | Role | Phone | + +------+ + PCP | Unavailable | + +------+ + Encounter Details +--------+ + + + + | Date | Type | Department | Care Team | Description | +--------+ + + + + | 08/07/ | Hospital | [facility] | | | | 2011 | Encounter | MED CTR CARDIAC | | | | | | SERVICES [address] | | | | | | [place], | | | | | | [place] [address] | | | +--------+ + + + [...] REFERRING AND READING PHYSICIAN: Wes Capone MD MANAGER FOREIGN: Kim Spicer CLINICAL HISTORY: Abnormal brain scan. [...] DISEASE . DICTATED BY: Wes Capone MD Neurologist/Firmware Developer JOB #: [id number] EXT JOB #:[id number] cc: Rodolfo Cruz MD <Electronically Signed by Wes Capone MD> 08/15/10 2207 María Chua MD - 08/07/2010 1:32 PM PDTDATE: 08/12/2010 VISUAL [employer]OKED POTENTIALS REFERRING AND READING PHYSICIAN: Wes Capone MD MANAGER FOREIGN: Kim Spicer LOCATION: Outpatient. DIAGNOSIS: Abnormal brain [...] TING DISEASE. DICTATED BY: Wes Capone MD Neurologist/Firmware Developer JOB #: [id number] EXT JOB #:[id number] cc: Rodolfo Cruz MD <Electronically Signed by [...] | | | | | | [place] [address] | | | | | | [phone] | | | | | | | | +--------+---------+ + + + documented as of this encounter Visit Diagnoses Not on filedocumented in this encounter"
--- OUTSIDE RECORDS SUMMARY | ~2019-04-12 | XMS | Encounter Summary ---
Demographics + + + | Address | [address] | | | [place] [address] | + + + | Home Phone [...] Author | [facility] | | | and [place] | + + + | Organization | [facility] | | [...] | | | | | [place] [address] | | + + + + + | Hunter Jackson | ECON | [place] | | + + + + + | Wes Jackson | ECON | [place], [place] | | + + + + + | Oziel Jackson | ECON | [place], [place] | | + + + + + Care Team Providers + +------+ + | Care Master Deputy Sheriff Court Security Name | Role | Phone | + [...] | 04/01/ | Office | [facility] | Rodolfo Cruz, | Asthma (Primary Dx); | | 2012 | Visit | MEDICINE [facility] | [address] | Hypertension; | | | | [address] | [place] | Hyperlipidemia; | | | | [place] | [address] | GERD; Osteoarthritis | | | | [address] | |Osteoarthritis | | | | [phone] | | | +--------+---------+ + + + [...] is no ear pain. She went to [place]. 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 | [address] | [place], [place] | [phone] | | [facility] | | [address] | | | - LABORATORY | | | | + + + + + | [facility] | [address] | [place], [place] | | | [facility] | | [address] | | | - LABORATORY | | [...] [address] | [place] | [phone] | | [facility] | | [address] | | | - LABORATORY | | | | + + + + + | [facility] [facility] | [address] | [place] | | | [facility] | | [address] | | | - LABORATORY | | [...]
--- OUTSIDE RECORDS SUMMARY | ~2019-04-12 | XMS | Encounter Summary ---
Demographics + + + | Address | [address] | | | [place] [address] | + + + | Home Phone [...] Author | [facility] | | | and [place] | + + + | Organization | [facility] [...] | | | | | [place] [address] | | + + + + + | Hunter Jackson | ECON | [place] | | + + + + + | Wes Jackson | ECON | [place], [place] | | + + + + + | Oziel Jackson | ECON | [place], [place] | | + + + + + Care Team Providers + +------+ + | Care Cake Washer Name | Role | Phone | [...] + | 05/31/ | Telephone | [facility] | Yesi, | Other (issue with | | 2015 | | CARDIOLOGY [address] | JOSE ALBERTO Linder [address] | blood pressure) | | | | [place], | [place], | | | | | [place] [address] | [place] [address] | | | | | [phone] | [phone] | | | | | | | [...] STREETER | | | | | | [address] | | | | | | | | +--------+---------+ + + + | 11/21/ | Office | Cardiology | Yesi, | | | 2019 | Visit | | JOSE ALBERTO Linder [address] | | | | | | [place] | | | | | | [place] [address] | | | | | | [phone] | | | | | | | | +--------+---------+ + + + documented as of this encounter Visit Diagnoses Not on filedocumented in this encounter"
--- OUTSIDE RECORDS SUMMARY | ~2019-04-12 | XMS | Encounter Summary ---
Demographics + + + | Address | [address] | | | [place] [address] | + + + | Home Phone [...] | Author | [facility] | | | and [place] | + + + | Organization | [facility] [...] | | | | | [place] [address] | | + + + + + | Hunter Jackson | ECON | [place] | | + + + + + | Wes Jackson | ECON | [place], [place] | | + + + + + | Oziel Jackson | ECON | [place], [place] | | + + + + + Care Team Providers + +------+ + | Care Clinical Cytogenetics Director Name | Role | Phone | [...] | 10/28/ | Refill | [facility] | Rodolfo Cruz, | Medication Refill | | 2013 | | MEDICINE [address] | [address] | | | | | [place] | [place] | | | | | [place] [address] | [address] | | | | | [phone] | | | +--------+--------+ + + + [...] | | | | | | [place] [address] | | | | | | [phone] | | | | | | | | +--------+---------+ + + + documented as of this encounter Visit Diagnoses + + | Diagnosis | + + | Thoracic sprain and strain, subsequent encounter - Primary | + + documented in this encounter"
--- OUTSIDE RECORDS SUMMARY | ~2019-04-12 | XMS | Encounter Summary ---
Demographics + + + | Address | [address] | | | [place] [address] | + + + | Home Phone [...] Author | [facility] | | | and [place] | + + + | Organization | [facility] | [...] | | | | | [place] [address] | | + + + + + | Hunter Jackson | ECON | [place] | | + + + + + | Wes Jackson | ECON | [place], [place] | | + + + + + | Oziel Jackson | ECON | [place], [place] | | + + + + + Care Team Providers + +------+ + | Care Hot Mill Supervisor Name | Role | Phone | [...] + + | 09/15/ | Emergency | [facility] | Stanislav Michele, | Thoracic sprain and | | 2013 | | MED CTR EMERGENCY | [address] | beto, initial | | | | CENTER [address] [place] | [place] [address] | encounter (Primary | | | | [place] | [address] | Dx) | | | | [address] | | | | | | [phone] | | | +--------+ + + + [...] cannot be sent through Care Everywhere.THORACIC STRAIN (URUGUAYAN)documented in this encounter Medications at Time of [...] STREET[place] | | | | | | [address] | | | | | | | | +--------+---------+ + + + | 11/21/ | Office | Cardiology | Yesi, | | | 2019 | Visit | | JOSE ALBERTO Linder [address] | | | | | | [place], | | | | | | [place] [address] | | | | | | [phone] | | | | | | | [...] | | | Dictated and Signed by: William Mcfarlane MD | | Electronically signed: 09/15/2013 1:05 PM | + + + +---------+ + + | Performing | Address | City/State/Zipcode | Phone Number | | Organization | | | | + +---------+ + + | MISCELLANEOUS LAB | | | [phone] | + +---------+ + + | MISCELANIOUS LAB | | | [phone] | + +---------+ + + documented in this encounter Visit Diagnoses + + | Diagnosis | + + | Thoracic sprain and strain, initial encounter - Primary | + + documented in this encounter
--- OUTSIDE RECORDS SUMMARY | ~2019-04-12 | XMS | Encounter Summary ---
Demographics + + + | Address | [address] | | | [place] [address] | + + + | Home Phone [...] | [facility] | | | and [place] | + + + | Organization | [facility] | [...] | | | | | [place] [address] | | + + + + + | Hunter Jackson | ECON | [place] | | + + + + + | Wes Jackson | ECON | [place], [place] | | + + + + + | Oziel Jackson | ECON | [place], [place] | | + + + + + Care Team Providers + +------+ + | Care Business Development Officer Name | Role | Phone | + +------+ + | Rodolfo Cruz MD | PCP | | + +------+ + Encounter Details +--------+ + + + + | Date | Type | Department | Care Team | Description | +--------+ + + + + | 07/07/ | Hospital | [facility] | Rodolfo Cruz, | Pain | | 2014 | Encounter | MED CTR DIONE XRAY | MD [address] | | | | | [address] [place] | [place] | | | | | [place] | [address] | | | | | [address] | | | | | | [phone] | | | +--------+ + + + [...] [place] | | | | | | [address] | | | | | | | | +--------+---------+ + + + | 11/21/ | Office | Cardiology | Yesi, | | | 2019 | Visit | | JOSE ALBERTO Linder [address] | | | | | | [address] [place], | | | | | | [place] [address] | | | | | | [phone] | | | | | | | [...] + | [facility] | [address] | [place], [place] | [phone] | | [facility] | | [address] | | | - IMAGING | | [...] to upper thoracic spine, similar to | [facility] | | the CT from 02/22/2014. [...] + | [facility] [facility] | [address] | [place] | [phone] | | [facility] | | [address] | | | - IMAGING | | | | + + + + + documented in this encounter Visit Diagnoses + + | Diagnosis | + + | Pain Generalized pain | + + documented in this encounter"
--- OUTSIDE RECORDS SUMMARY | ~2019-04-12 | XMS | Encounter Summary ---
Demographics + + + | Address | [address] | | | [place] [address] | + + + | Home Phone | | + + + | Preferred Language | Unknown | + + + | Marital Status | | + + + | Synagogue Affiliation | Unknown | + + + | Race | Unknown | + + + | Ethnic Group | Unknown | + + + Author + + + | Author | [facility] | | | and [place] | + + + | Organization | [facility] | [...] | | | | | [place] [address] | | + + + + + | Hunter Jackson | ECON | [place] | | + + + + + | Wes Jackson | ECON | [place], [place] | | + + + + + | Oziel Jackson | ECON | [place], [place] | | + + + + + Care Team Providers + +------+ + | Care Collaborative Physician Name | Role | Phone | [...] 02/04/ | Office | [facility] | Ulysses Jensen, | Rotator cuff | | 2012 | Visit | ORTHOPEDIC SURGERY | [address] | syndrome of right | | | | [address] [facility] | [place], [place] | shoulder (Primary | | | | [place], [place] | [address] | Dx); [facility] | | | | [address] | | | | | | [phone] | | | +--------+---------+ + + + [...] | | | | | | [place] [address] | | | | | | [phone] | | | | | | | [...] (Comment | | Intramuscular, ONCE, [facility] 02/04/13 | | AM PDT | [...] | | | | | Infiltration, ONCE, [facility] 02/04/13 | | AM PDT | [...] | | | | | Infiltration, ONCE, [facility] 02/04/13 | | AM PDT | [...] | | | | ONCE, [facility] 02/04/13 at 1015, For 1 | | | | | | | dose, Shake well. Not for IV | | | | | | | use., | | | | | | + +-------+ +-------+---+---+ +---+---+ | | | +---+---+ documented in this encounter
--- OUTSIDE RECORDS SUMMARY | ~2019-04-12 | XMS | Encounter Summary ---
Demographics + + + | Address | [address] | | | [place] [address] | + + + | Home Phone [...] | [facility] | | | and [place] | + + + | Organization | [facility] [...] | | | | | [place] [address] | | + + + + + | Hunter Jackson | ECON | [place] | | + + + + + | Wes Jackson | ECON | [place], [place] | | + + + + + | Oziel Jackson | ECON | [place], [place] | | + + + + + Care Team Providers + +------+ + | Care Compliance Attorney Name | Role | Phone | + [...] | disc disease), | | | | [place], | [facility], | lumbar (Primary Dx) | | | | [place] [address] | [place] [address] | | | | | [phone] | [phone] | | | | | | | [...] | | | | | | [place] [address] | | | | | | [phone] | | | | | | | | +--------+---------+ + + + documented as of this encounter Visit Diagnoses + + | Diagnosis | + + | DDD (degenerative disc disease), lumbar - Primary Degeneration of lumbar or | | lumbosacral intervertebral disc | + + documented in this encounter"
--- OUTSIDE RECORDS SUMMARY | ~2019-04-12 | XMS | Encounter Summary ---
Demographics + + + | Address | [address] | | | [place] [address] | + + + | Home Phone [...] Author | [facility] | | | and [place] | + + + | Organization | [facility] [...] | | | | | [place] [address] | | + + + + + | Hunter Jackson | ECON | [place] | | + + + + + | Wes Jackson | ECON | [place], [place] | | + + + + + | Oziel Jackson | ECON | [place], [place] | | + + + + + Care Team Providers + +------+ + | Care Linotypist Name | Role | Phone | + [...] | [address] | | | | | [address] | | | | | | [phone] | | | +--------+--------+ + + + [...] | | | | | | [place] [address] | | | | | | [phone] | | | | | | | | +--------+---------+ + + + documented as of this encounter Visit Diagnoses Not on filedocumented in this encounter"
--- OUTSIDE RECORDS SUMMARY | ~2019-04-12 | XMS | Encounter Summary ---
Demographics + + + | Address | [address] | | | [place] [address] | + + + | Home Phone [...] Author | [facility] | | | and [place] | + + + | Organization | [facility] [...] | | | | | [place] [address] | | + + + + + | Hunter Jackson | ECON | [place] | | + + + + + | Wes Jackson | ECON | [place], [place] | | + + + + + | Oziel Jackson | ECON | [place], [place] | | + + + + + Care Team Providers + +------+ + | Care Shaft Tender Name | Role | Phone | + +------+ + PCP | Unavailable | + +------+ + Encounter Details +--------+ + + + + | Date | Type | Department | Care Team | Description | +--------+ + + + + | 05/14/ | [facility] | [facility] | Rodolfo Cruz, | | | 2010 | Encounter | MED CTR XRAY [address] | [address] | | | | | [place] | [place], [place] | | | | | [place] [address] | [address] | | | | | [phone] | | | +--------+ + + + [...] | | | | | | [place] [address] | | | | | | [phone] | | | | | | | | +--------+---------+ + + + documented as of this encounter Visit Diagnoses Not on filedocumented in this encounter"
--- OUTSIDE RECORDS SUMMARY | ~2019-04-12 | XMS | Encounter Summary ---
Demographics + + + | Address | [address] | | | [place] [address] | + + + | Home Phone [...] | [facility] | | | and [place] | + + + | Organization | 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 The cur [...] been very active, she in going to [employer] [facility] once a week. She states that she [...] cervical Cervical radiculopathy Coronary artery disease involving [place] coronary artery of [place] heart with unstable angina pectoris Stress hyperglycemia [...] Anterolateral leads Confirmed by CHRISTOPHER SIMMS MD ([id number]) on 06/01/2018 4:18:00 PM LAB RESULTS reviewed during visit today primarily from [facility]: LIPID Lab Results Component Value Date CHOL [...] 63 09/18/2016 RESULTS- I reviewed reports from [facility]: VAS segmental pressures legs 07/02/2018: Normal segmental pressures of lower extremities. Above data and testing is reviewed this visit; testing below is historical data unless othe rwise specified. ASSESSMENT: 1. Coronary artery disease A. Seen at [facility] they had EKG and sent her home stating it was GERD B. Seen in the emergency room at [facility] for chest pain. Sh e was schedule for stress test and discharged home. C. Stress Test 05/16/16, is maximal asymptomatic stress test, [facility] very poor function status, achieving [...] central AI, no , trace TR, trace IN, normal aorta other than mild calcification at [...] Symptoms with moderate exe rtion of the [place] [employer] functional class. Heart failure stage [...] visit, or sooner with concerns. Stefani Hu, Stitch Bonding Machine Tender am acting as a scribe on behalf of, and in the presenc e of JOSE ALBERTO Pham. - Stefani Onofre Stitch Bonding Machine Tender 11/18/2018 10:39 I, JOSE ALBERTO Pham, personally performed the services described in this documentati on, as scribed in my presence and it is both accurate and complete. -JOSE ALBERTO Pham 11/18/2018 Portions of this chart may have been created with [employer] voice recognition software. Occasi onal wrong-word or [...] | | | | | | [place] [address] | | | | | | [phone] | | | | | | | [...] + + | Coronary artery disease involving [place] coronary artery of [place] heart with unstable | | angina pectoris (HCC) | + + | Chest pain, unspecified type | + + documented in this encounter
--- OUTSIDE RECORDS SUMMARY | ~2019-04-12 | XMS | Encounter Summary ---
Demographics + + + | Address | [address] | | | [place] [address] | + + + | Home Phone [...] | Author | [facility] | | | and [place] | + + + | Organization | [facility] | | [...] [place] | | | | | [place] [address] | | + + + + + | Hunter Jackson | ECON | [place] | | + + + + + | Wes Jackson | ECON | [place], [place] | | + + + + + | Oziel Jackson | ECON | [place], [place] | | + + + + + Care Team Providers + +------+ + | Care Director Radio Name | Role | Phone | + [...] | Essential | Yesi, | [address] | | | | | hypertension | JOSE ALBERTO Harry | [place], | | | | | with goal | [address] | [place] | | | | | blood | [place] | [address] | | | | | pressure | [facility] [place], | Phone: | | | | | less than | [place] | [phone] | | | | | 130/80 | [address] | Fax: | | | | | Murmur | Phone: | [phone] | | | | | Procedures | [phone] | | | | | | ECHO | Fax: | | | | | | Complete [place] | [phone] | | | | | | ECHO HEART | | | | | | | [place] | | | | | | | [address] | | | | | | | [place] | | | | | | | [...] | Essential | Yesi, | [address] | | | | | hypertension | JOSE ALBERTO Harry | [place], | | | | | with goal | [address] | [place] | | | | | blood | [place] | [address] | | | | | pressure | [place], | Phone: | | | | | less than | [place] | [phone] | | | | | 130/80 | [address] | Fax: | | | | | Murmur | Phone: | [phone] | | | | | Procedures | [phone] | | | | | | ECHO | Fax: | | | | | | Complete [place] | [phone] | | | | | | ECHO HEART | | | | | | | [place] | | | | | | | [address] | | | | | | | [place] | | | | | | | [...] | 07/16/ | Hospital | [facility] | Yesi, | Essential | | 2017 | Encounter | MED CTR ECHO [address] | Niyah CHAMBER WALKER [address] | hypertension with | | | | [place] | [place], | goal blood pressure | | | | [place] [address] | [place] [address] | less than 130/80; | | | | [phone] | [phone] | Murmur | | | | | [...] | | | | 7 | | CRIME SCENE TECHNICIAN PO) | | | | | | [...] [place] | | | | | | [address] | | | | | | | | +--------+---------+ + + + | 11/21/ | Office | Cardiology | Yesi, | | | 2019 | Visit | | JOSE ALBERTO Harry [address] | | | | | | [place] | | | | | | [place] [address] | | | | | | [phone] | | | | | | | [...] Room Number DEION Patient Number | [facility] | | [id number] Date of Study 07/16/2016 Visit Number | - IMAGING | | [id number] Referring | | | Physician YG HARRY Number Date of 1935 | | | 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 SALLY Age | | | 80 year(s) Interpreting [place] | | | [employer] Supervisor | | | CHRISTOPHER ARECHIGA MD Gender [...] | 50.56 ml | | | EF Bkpqbyija18% Left Ventricle Diastolic Dimension: 5.07 | | [...] Volume: 50.56 ml | | | EF Arbzalcoa58% | | | | | | Left [...] Room Number DEION | | Patient Number [id number] Date of Study 07/16/2016 Visit Number | | [id number] Referring Physician YG HARRY Number | | Date of 1935 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 | [place] | [phone] | | [facility] | | [address] | | | - IMAGING | | | | + + + + + documented in this encounter Visit Diagnoses + + | Diagnosis | + + | Essential hypertension with goal blood pressure less than 130/80 | + + | Murmur Undiagnosed cardiac murmurs | + + documented in this encounter"
--- OUTSIDE RECORDS SUMMARY | ~2019-04-12 | XMS | Encounter Summary ---
Demographics + + + | Address | [address] | | | [place] [address] | + + + | Home Phone [...] Author | [facility] | | | and [place] | + + + | Organization | [facility] | [...] | | | | | [place] [address] | | + + + + + | Hunter Jackson | ECON | [place] | | + + + + + | Wes Jackson | ECON | [place], [place] | | + + + + + | Oziel Jackson | ECON | [place], [place] | | + + + + + Care Team Providers + +------+ + | Care Transport Operations Inspector Name | Role | Phone | [...] | (Screening) (Log | | | | [place], | [place], | from 11/18/14 till | | | | [place] [address] | [place] [address] | 12/02/14) | | | | [phone] | [phone] | | | | | | | [...] STREET[place] | | | | | | [address] | | | | | | | | +--------+---------+ + + + | 11/21/ | Office | Cardiology | Yesi, | | | 2020 | Visit | | JOSE ALBERTO [address] | | | | | | [place], | | | | | | [place] [address] | | | | | | [phone] | | | | | | | | +--------+---------+ + + + documented as of this encounter Visit Diagnoses Not on filedocumented in this encounter"
--- OUTSIDE RECORDS SUMMARY | ~2019-04-12 | XMS | Encounter Summary ---
Demographics + + + | Address | [address] | | | [place] [address] | + + + | Home Phone [...] | Author | [facility] | | | and [place] | + + + | Organization | [facility] | [...] | | | | | [place] [address] | | + + + + + | Hunter Jackson | ECON | [place] | | + + + + + | Wes Jackson | ECON | [place], [place] | | + + + + + | Oziel Jackson | ECON | [place], [place] | | + + + + + Care Team Providers + +------+ + | Care Fence Making Machine Operator Name | Role | [...] + + | 01/07/ | Telephone | [facility] | Rodolfo Cruz, | Lab Results | | 2016 | | MEDICINE [facility] [address] | MD [address] | | | | | [place] | [place] | | | | | [place] [address] | [address] | | | | | [phone] | | | +--------+ + + + [...] | | | | | | [place] [address] | | | | | | [phone] | | | | | | | | +--------+---------+ + + + documented as of this encounter Visit Diagnoses Not on filedocumented in this encounter"
--- OUTSIDE RECORDS SUMMARY | ~2019-04-12 | XMS | Encounter Summary ---
Demographics + + + | Address | [address] | | | [place] [address] | + + + | Home Phone [...] | Author | [facility] | | | and [place] | + + + | Organization | [facility] | | | [...] | | | | | [place] [address] | | + + + + + | Hunter Jackson | ECON | [place] | | + + + + + | Wes Jackson | ECON | [place], [place] | | + + + + + | Oziel Jackson | ECON | [place], [place] | | + + + + + Care Team Providers + +------+ + | Care Monkey Keeper Name | Role | Phone | [...] | 01/26/ | Refill | [facility] [place] [facility] | Rodolfo Cruz, | Medication Refill | | 2016 | | MEDICINE [address] | MD [address] | | | | | [place] | [place] [address] | | | | | [place] [address] | [address] | | | | | [phone] | | | +--------+--------+ + + + [...] | | | | | | [place] [address] | | | | | | [phone] | | | | | | | | +--------+---------+ + + + documented as of this encounter Visit Diagnoses Not on filedocumented in this encounter"
--- OUTSIDE RECORDS SUMMARY | ~2019-04-12 | XMS | Encounter Summary ---
Demographics + + + | Address | [address] | | | [place] [address] | + + + | Home Phone [...] | | | | | [place] [address] | | + + + + + | Hunter Jackson | ECON | [place] | | + + + + + | Wes Jackson | ECON | [place], [place] | | + + + + + | Oziel Jackson | ECON | [place], [place] | | + + + + + Care Team Providers + +------+ + | Care Bench Boring Machine Operator Name | Role | Phone | + +------+ + PCP | Unavailable | + +------+ + Encounter Details +--------+ + + + + | Date | Type | Department | Care Team | Description | +--------+ + + + + | 11/03/ | [facility] | [facility] | Rodolfo Cruz, | | | 2008 | Encounter | MED CTR XRAY [address] | [address] | | | | | [place] | [place], [place] | | | | | [place] [address] | [address] | | | | | [phone] | | | +--------+ + + + [...] | | | | | | [place] [address] | | | | | | [phone] | | | | | | | | +--------+---------+ + + + documented as of this encounter Visit Diagnoses Not on filedocumented in this encounter"
--- OUTSIDE RECORDS SUMMARY | ~2019-04-12 | XMS | Encounter Summary ---
Demographics + + + | Address | [address] | | | [place] [address] | + + + | Home Phone [...] | [facility] | | | and [place] | + + + | Organization | [facility] [...] | | | | | [place] [address] | | + + + + + | Hunter Jackson | ECON | [place] | | + + + + + | Wes Jackson | ECON | [place], [place] | | + + + + + | Oziel Jackson | ECON | [place], [place] | | + + + + + Care Team Providers + +------+ + | Care Platform Man Name | Role | Phone | [...] Heart | MD Irina | [address] | | | | | murmur | [address] | [place], | | | | | Procedures | [address] | [place] | | | | | ECHO | [place], | [address] | | | | | Complete [place] | [place] [address] | Phone: | | | | | ECHO HEART | Phone: | [phone] | | | | | [place] | [phone] | Fax: | | | | | [address] | Fax: | [phone] | | | | | [place] | [phone] | | | | | | ECHO [...] Heart | MD Irina | [address] | | | | | murmur | [address] | [place], | | | | | Procedures | [address] | [place] | | | | | ECHO | [place], | [address] | | | | | Complete [place] | [place] [address] | Phone: | | | | | ECHO HEART | Phone: | [phone] | | | | | [place] | [phone] | Fax: | | | | | [address] | Fax: | [phone] | | | | | [place] | [phone] | | | | | | ECHO [...] | Hospital | [facility] | Irina Simms, | Heart murmur | | 2015 | Encounter | MED CTR ECHO [address] | MD [address] | | | | | [place] | [facility], | | | | | [place] [address] | [place] [address] | | | | | [phone] | [phone] | | | | | | | [...] | | | | | | [place] [address] | | | | | | [phone] | | | | | | | [...] Performed At | + + + | [facility] | [place] | | STUDY DATE: 10/25/2014 PATIENT NAME: Soumya Jackson : | [facility] | | 1935 PCP: Rodolfo Cruz MD CLINICAL [facility] | | HISTORY/DIAGNOSIS: MURMUR A transthoracic [...] by: | | | Irina Simms MD [facility] 10/25/2014 11:39 | | | Iuss Acoustic Analyst: Samm Caceres, NANCYCS, RVT, RDMS | | + + + + + + + + | Performing | Address | City/State/Zipcode | Phone Number | | Organization | | | | + + + + + | [address] | [address] | [place] | [phone] | | [facility] | | [address] | | | - IMAGING | | [...]
--- OUTSIDE RECORDS SUMMARY | ~2019-04-12 | XMS | Encounter Summary ---
Demographics + + + | Address | [address] | | | [place] [address] | + + + | Home Phone [...] [facility] | | | and [place] | + + + | Organization | [facility] | [...] [place] | | | | | [place] [address] | | + + + + + | Hunter Jackson | ECON | [place] | | + + + + + | Wes Jackson | ECON | [place], [place] | | + + + + + | Oziel Jackson | ECON | [place], [place] | | + + + + + Care Team Providers + +------+ + | Care Dry House Attendant Name | Role | Phone | [...] + + | 10/21/ | Office | [facility] | Ulysses Jensen, | Complete tear of | | 2017 | Visit | ORTHOPEDIC SURGERY | [address] | right rotator cuff | | | | [facility] | [place] [address] | (Primary Dx) | | | | [place] | [address] | | | | | [address] | | | | | | [phone] | | | +--------+---------+ + + + [...] is scheduled to undergo CAB G at [place] next week She kept this appointment just [...] [place]REET[place] | | | | | | [address] | | | | | | | | +--------+---------+ + + + | 11/21/ | Office | Cardiology | Yesi, | | | 2019 | Visit | | JOSE ALBERTO [address]inder [address] | | | | | | [place], | | | | | | [place] [address] | | | | | | [phone] | | | | | | | | +--------+---------+ + + + documented as of this encounter Visit Diagnoses + + | Diagnosis | + + | Complete tear of right rotator cuff - Primary | + + documented in this encounter
--- OUTSIDE RECORDS SUMMARY | ~2019-04-12 | XMS | Encounter Summary ---
Demographics + + + | Address | [address] | | | [place] [address] | + + + | Home Phone [...] | [facility] | | | and [place] | + + + | Organization | [facility] | [...] | | | | | [place] [address] | | + + + + + | Gisele Jackson | ECON | [place] | | + + + + + | Wes Jackson | ECON | [place], [place] | | + + + + + | Oziel Jackson | ECON | [place], [place] | | + + + + + Care Team Providers + +------+ + | Care Bending Shed Worker Name | Role | Phone | [...] | Specialty | Physical | Diagnoses | [place], | OP ST | | | Services | Therapy | Thoracic | Rodolfo Reilly MD | GISELE | | | Required | | back pain | [address] [facility] | HOSPITAL | | | | | | AVE [place] | [address] [facility] [facility] | | | | | | [place] | AVE | | | | | | [address] | [place] | | | | | | Phone: | [address] | | | | | | [phone] | Phone: | | | | | | Fax: | [phone] | | | | | | [phone] | Fax: | | | | | | | [phone] | +--------+ + + + + + Reason for Visit + + + | Reason | Comments | + + + | ED Follow-up | 03/13/14 for nose bleed, bloody mucous at times | + + + | Back Pain | mid back x few months | + + + Encounter Details +--------+---------+ + + + | Date | Type | Department | Care Team | Description | +--------+---------+ + + + | 03/29/ | Office | [facility] | Rodolfo Cruz, | Thoracic back pain | | 2014 | Visit | MEDICINE [facility] [place] | MD [address] | (Primary Dx); | | | | [address] [place] | [facility], [place] | Anemia; Epistaxis; | | | | [place] [address] | [address] | Insomnia; Back pain | | | | [phone] | |Back pain | +--------+---------+ + + + Social [...] + + + | Blood Pressure | 140/78 | 03/29/2014 12:09 PM | | | | | PST | | + + + + + | Pulse | 59 | 03/29/2014 12:09 PM | | | | | PST | | + + + + + | Temperature | 36.7 C (98 F) | 03/29/2014 12:09 PM | | | | | PST | | + + + + + | Respiratory Rate | 14 | 03/29/2014 12:09 PM | | | | | PST | | + + + + + | Oxygen Saturation | 98% | 03/29/2014 12:09 PM | | | | | PST | | + + + + + | Inhaled Oxygen | - | - | | | Concentration | | | | + + + + + | Weight | 86.6 kg (191 lb) | 03/29/2014 12:09 PM | | | | | PST | | + + + + + | Height | 167.6 cm (5' 6") | 03/29/2014 12:09 PM | | | | | PST | | + + + + + | Body Mass Index | 30.83 | 03/29/2014 12:09 PM | | | | | PST | | + + + + + documented in this encounter Progress Notes Rodolfo Cruz MD - 03/29/2014 12:20 PM PSTFormatting of this note might be different f rom the original. Subjective: Patient ID: Soumya Jackson is a 78 y.o. female. HPI Epistaxis, recent , seen at ER in [place]. No recurrence using an ointment and decongest ant. Thoracic pain. Her radiating back pain which started in September is now resolved. She still ge ts an occasional once a day twinge in the central upper pain, Sporadic with sleeping, She i s not sure what brings it on. She takes one hydrocodone per day at night for this. This im pacts her sleep. She is tired when she goes to bed. Review of Systems Constitutional: no fever, No appetite change, no fatigue. HEENT: Neg ear pain, No nosebleeds,no rhinorrhea,no trouble swallowing and no sinus pressure. Recent nose bleed Eyes: Neg for pain and no visual [...] gross lesions Assessment: 1. Thoracic back pain Ambulatory referral to Physical Therapy 2. Anemia 3. Epistaxis 4. Insomnia eszopiclone (LUNESTA) 1 mg TABS Plan: Lunesta trial, She will continue the hydrocodone refilled. Refer to PT benjamin. RTC as previously scheduled. documented in this encounter Plan of Treatment +--------+---------+ + + + | Date | Type | Specialty | Care Team | Description | +--------+---------+ + + + | 06/02/ | Office | Orthopedic Surgery | Ulysses Jensen, | | | 2019 | Visit | | [facility] [place] | | | | | | [place] [address] | | | | | | [address] | | | | | | | | +--------+---------+ + + + | 11/21/ | Office | Cardiology | Yesi, | | | 2019 | Visit | | JOSE ALBERTO Linder [address] | | | | | | [place], | | | | | | [place] [address] | | | | | | [phone] | | | | | | | | +--------+---------+ + + + + + +--------+ + + | Name | Type | Priori | Associated Diagnoses | Order Schedule | | | | ty | | | + + +--------+ + + | Ambulatory referral | Outpatient | Routin | Thoracic back pain | Ordered: 03/29/2014 | | to Physical Therapy | Referral | e | | | + + +--------+ + + documented as of this encounter Visit Diagnoses + + | Diagnosis | + + | Thoracic back pain - Primary Pain in thoracic spine | + + | Anemia Anemia, unspecified | + + | Epistaxis | + + | Insomnia Insomnia, unspecified | + + | Back pain Backache, unspecified | + + documented in this encounter
--- OUTSIDE RECORDS SUMMARY | ~2019-04-12 | XMS | Encounter Summary ---
Demographics + + + | Address | [address] | | | [place] [address] | + + + | Home Phone [...] Author | [facility] | | | and [place] | + + + | Organization | [facility] | [...] [place] | | | | | [place] [address] | | + + + + + | Hunter Jackson | ECON | [place] | | + + + + + | Wes Jackson | ECON | [place], [place] | | + + + + + | Oziel Jackson | ECON | [place], [place] | | + + + + + Care Team Providers + +------+ + | Care Hogshead Stock Clerk Name | Role | Phone | + +------+ + | Gunderson, Kellie PA | PCP | | + +------+ + Encounter Details +--------+---------+ + + + | Date | Type | Department | Care Team | Description | +--------+---------+ + + + | 10/16/ | Surgery | [facility] | Irina Simms, | CV LHC | | 2017 | | MED CTR CV INTRA OP | MD [address] | | | | | [address] | [place], | | | | | [place] | [place] [address] | | | | | [address] | [phone] | | | | | [phone] | | | +--------+---------+ + + + [...] You cannot be awakened Date Last Reviewed: 02/27/201619996792-0550 The [employer]. [address] [place] [address], [place] [id number]. All righ ts reserved. This information is [...] by your healthcare provider Date Last Reviewed: 07/07/201319999358-4504 The [employer]. [address] [place] [address]. All righ ts reserved. This information is [...] | | | | | | [place] [address] | | | | | | [phone] | | | | | | | [...] (1935) OF PROCEDURE: | | | 10/16/2016 BRANCH MAKER: Irina Simms MD PROCEDURES | | | [...]
--- OUTSIDE RECORDS SUMMARY | ~2019-04-12 | XMS | Encounter Summary ---
Demographics + + + | Address | [address] | | | [place] [address] | + + + | Home Phone [...] | Author | [facility] | | | and [place] | + + + | Organization | [facility] [...] | | | | | [place] [address] | | + + + + + | Hunter Jackson | ECON | [place] | | + + + + + | Wes Jackson | ECON | [place], [place] | | + + + + + | Oziel Jackson | ECON | [place], [place] | | + + + + + Care Team Providers + +------+ + | Care Retail Attendant Name | Role | Phone | + +------+ + | Rodolfo Cruz MD | PCP | | + +------+ + Encounter Details +--------+ + + + + | Date | Type | Department | Care Team | Description | +--------+ + + + + | 08/05/ | Orders Only | [facility] | Rodolfo Cruz, | History of hepatitis | | 2015 | | MEDICINE [address] [place] [address] | MD [address] | (Primary Dx) | | | | [facility] | [place], [place] | | | | | [place] [address] | [address] | | | | | [phone] | | | +--------+ + + + [...] | | | | | | [place] [address] | | | | | | [phone] | | | | | | | [...] | LAB PAML | | | | [id number] or greater | | | | | [...] | | | | | [place] [address] | | | | + + + [...] [place] | | | | | | [address] | | | | + + + [...] [address] | [place] [address] | [phone] | + + + + + documented in this encounter Visit Diagnoses + + | Diagnosis | + + | History of hepatitis - Primary Personal history of other infectious and parasitic | | disease | + + documented in this encounter"
--- OUTSIDE RECORDS SUMMARY | ~2019-04-12 | XMS | Encounter Summary ---
Demographics + + + | Address | [address] | | | [place] [address] | + + + | [...] [facility] | | | and [place] | + + + | Organization | [facility] | [...] | | | | | [place] [address] | | + + + + + | Hunter Jackson | ECON | [place] | | + + + + + | Wes Jackson | ECON | [place], [place] | | + + + + + | Oziel Jackson | ECON | [place], [place] | | + + + + + Care Team Providers + +------+ + | Care Lead Teacher Name | Role | Phone | [...] | | | | [place] | [facility] | | | | | | [address] | [place] | | | | | | Phone: | [address] Phone: | | | | | | [phone] | [phone] | | | | | | Fax: | Fax: | | | | | | [phone] | [phone] | +--------+ + + + + + [...] + + | 07/07/ | Office | 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 Hyperproteinemia * [facility] - AMB Referral 2. [...] W | | | | | | [place], | | | | | | [place] [address] | | | | | | [phone] | | | | | | | [...] + | [address] | [address] [place] [address] | [place] | [phone] | | [facility] | | [address] | | | [...] + + | Performing | Address | City[facility] | Phone Number | | Organization | | | | + + + + + | [address] | [address] [place] [address] | [place], [place] | [phone] | | [facility] | | [address] | | | - IMAGING | | [...] to upper thoracic spine, similar to | [facility] | | the CT from [...] ST. | [address] | [place], [place] | [phone] | | [facility] | | [address] | | | - IMAGING | | [...]
--- OUTSIDE RECORDS SUMMARY | ~2019-04-12 | XMS | Encounter Summary ---
Demographics + + + | Address | [address] | | | [place] [address] | + + + | Home Phone [...] | [facility] | | | and [place] | + + + | Organization | [facility] [...] | | | | | [place] [address] | | + + + + + | Hunter Jackson | ECON | [place] | | + + + + + | Wes Jackson | ECON | [place], [place] | | + + + + + | Oziel Jackson | ECON | [place], [place] | | + + + + + Care Team Providers + +------+ + | Care Shook Splicer Name | Role | Phone | + [...] + + | 05/21/ | Telephone | [facility] | Yesi, | Appointment | | 2016 | | CARDIOLOGY [address] | JOSE ALBERTO Linder [address] | | | | | [place], | [place], | | | | | [place] [address] | [place] [address] | | | | | [phone] | [phone] | | | | | | | [...] STREET[place] | | | | | | [address] | | | | | | | | +--------+---------+ + + + | 11/21/ | Office | Cardiology | Yesi, | | | 2019 | Visit | | JOSE ALBERTO [address] | | | | | | [place] | | | | | | [place] [address] | | | | | | [phone] | | | | | | | | +--------+---------+ + + + documented as of this encounter Visit Diagnoses Not on filedocumented in this encounter"
--- OUTSIDE RECORDS SUMMARY | ~2019-04-12 | XMS | Encounter Summary ---
Demographics + + + | Address | [address] | | | [place] [address] | + + + | Home Phone [...] Author | [facility] | | | and [place] | + + + | Organization | [facility] | [...] | | | | | [place] [address] | | + + + + + | Hunter Jackson | ECON | [place] | | + + + + + | Wes Jackson | ECON | [place], [place] | | + + + + + | Oziel Jackson | ECON | [place], [place] | | + + + + + Care Team Providers + +------+ + | Care Core Microarchitect Name | Role | Phone | + [...] | [address] | | | | | [address] | | | | | | [phone] | | | +--------+--------+ + + + [...] STREET[place] | | | | | | [address] | | | | | | | | +--------+---------+ + + + | 11/21/ | Office | Cardiology | Yesi, | | | 2019 | Visit | | JOSE ALBERTO [address]inder [address] | | | | | | [place] | | | | | | [place] [address] | | | | | | [phone] | | | | | | | | +--------+---------+ + + + documented as of this encounter Visit Diagnoses + + | Diagnosis | + + | Pain - Primary Generalized pain | + + documented in this encounter"
--- OUTSIDE RECORDS SUMMARY | ~2019-04-12 | XMS | Encounter Summary ---
Demographics + + + | Address | [address] | | | [place] [address] | + + + | Home Phone [...] | [facility] | | | and [place] | + + + | Organization | [facility] [...] [place] | | | | | [place] [address] | | + + + + + | Hunter Jackson | ECON | [place] | | + + + + + | Wes Jackson | ECON | [place], [place] | | + + + + + | Oziel Jackson | ECON | [place], [place] | | + + + + + Care Team Providers + +------+ + | Care Programmable Logic Controller Assembler Name | Role | Phone | [...] | JOSE ALBERTO Linder | [address] [place] | | | | | ia, mixed | [address] | [place], | | | | | Chest pain, | [place] | [place] | | | | | unspecified | [place], | [address] | | | | | type | [place] | Phone: | | | | | Procedures | [address] | [phone] | | | | | [place] Nuclear | Phone: | Fax: | | | | | Stress Test | [phone] | [phone] | | | | | (Vasodilator | Fax: | | | | | | ) CHG | [phone] | | | | | | MYOCARDIAL | | | | | | | SPECT | | | | | | | MULTIPLE | | | | | | | STUDIES UT | | | | | | | CV STRS TST | | | | | | | XERS&/OR RX | | | | | | | CONT ECG W/O | | | | | | | I&R UT | | | | | | | [...] + + | 07/16/ | Hospital | [facility] | Yesi, | Hyperlipidemia, | | 2017 | Encounter | MED CTR NUCLEAR | JOSE ALBERTO Linder [address] | mixed; Chest pain, | | | | MEDICINE [address] | [place], | unspecified type | | | | [place], | [place] [address] | | | | | [place] [address] | [phone] | | | | | [phone] | | | | | | | Donor Relations OfficerRenetta | | +--------+ + + + + [...] | | | | 7 | | PURCHASING ADMINISTRATOR PO) | | | | | | [...] STREET[place] | | | | | | [address] | | | | | | | | +--------+---------+ + + + | 11/21/ | Office | Cardiology | Yesi, | | | 2019 | Visit | | JOSE ALBERTO Linder [address] | | | | | | [place], | | | | | | [place] [address] | | | | | | [phone] | | | | | | | [...] wall thickness. Preserved left ventricular systolic | [facility] | | function. LVEF by gated SPECT 75%. Signed by: Irina | - IMAGING | | MD [facility] 07/16/2016, 13:12 | | + + + + + + | Narrative | Performed At | + + + | NUCLEAR MEDICINE STRESS TEST REPORT | [facility] | | Patient Name: Soumya Jackson Study Date: 07/16/2016 Primary Care | [facility] | | Provider: FLORA Morgan : 1935 Age: | [facility] | | 80 y.o. Gender: female [...] [address] | [place] | [phone] | | [facility] | | [address] | | | - IMAGING | | [...]
--- OUTSIDE RECORDS SUMMARY | ~2019-04-12 | XMS | Encounter Summary ---
Demographics + + + | Address | [address] | | | [place] [address] | + + + | Home Phone [...] Author | [facility] | | | and [place] | + + + | Organization | [facility] | [...] | | | | | [place] [address] | | + + + + + | Hunter Jackson | ECON | [place] | | + + + + + | Wes Jackson | ECON | [place], [place] | | + + + + + | Oziel Jackson | ECON | [place], [place] | | + + + + + Care Team Providers + +------+ + | Care Ux Research Associate Name | Role | Phone | [...] + + | 04/09/ | Telephone | [facility] | Shahana Rodriguez | Flu Vaccine | | 2011 | | MEDICINE [address] | | | | | [place] | | | | | | [place] [address] | | | | | | [phone] | | | +--------+ + + + [...] | | | | | | [place] [address] | | | | | | [phone] | | | | | | | | +--------+---------+ + + + documented as of this encounter Visit Diagnoses Not on filedocumented in this encounter"
--- OUTSIDE RECORDS SUMMARY | ~2019-04-12 | XMS | Encounter Summary ---
Demographics + + + | Address | [address] | | | [place] [address] | + + + | Home Phone [...] Author | [facility] | | | and [place] | + + + | Organization | [facility] | [...] | | | | | [place] [address] | | + + + + + | Gisele Jackson | ECON | [place] | | + + + + + | Wes Jackson | ECON | [place], [place] | | + + + + + | Oziel Jackson | ECON | [place], [place] | | + + + + + Care Team Providers + +------+ + | Care Cutting Table Operator Name | Role | Phone [...] | | sprain and | [address] [facility] | HOSPITAL | | | | | strain, | [address] [place] | [address] | | | | | initial | [place] | AVE | | | | | encounter | [address] | [place] | | | | | | Phone: | [address] | | | | | | [phone] | Phone: | | | | | | Fax: | [phone] | | | | | | [phone] | | +--------+ + + + + + Reason for Visit + + + | Reason | Comments | + + + | ED Follow-up | | + + + Encounter Details +--------+---------+ + + + | Date | Type | Department | Care Team | Description | +--------+---------+ + + + | 09/27/ | Office | [facility] | Rodolfo Cruz, | Thoracic sprain and | | 2013 | Visit | MEDICINE [address] [place] [address] | [address] | strain, initial | | | | [address] [place] | [place] | encounter (Primary | | | | [place] [address] | [address] | Dx) | | | | [phone] | | | +--------+---------+ + + + [...] [place] | | | | | | [address] | | | | | | | | +--------+---------+ + + + | 11/21/ | Office | Cardiology | Yesi, | | | 2019 | Visit | | JOSE ALBERTO Linder [address] | | | | | | [place], | | | | | | [place] [address] | | | | | | [phone] | | | | | | | | +--------+---------+ + + + + + +--------+ + + | Name | Type | Priori | Associated Diagnoses | Order Schedule | | | | ty | | | + + +--------+ + + | [place] | Outpatient | Routin | Thoracic sprain [...]
--- OUTSIDE RECORDS SUMMARY | ~2019-04-12 | XMS | Encounter Summary ---
Demographics + + + | Address | [address] | | | [place] [address] | + + + | Home Phone [...] | Author | [facility] | | | and [place] | + + + | Organization | [facility] [...] | | | | | [place] [address] | | + + + + + | Hunter Jackson | ECON | [place] | | + + + + + | Wes Jackson | ECON | [place], [place] | | + + + + + | Oziel Jackson | ECON | [place], [place] | | + + + + + Care Team Providers + +------+ + | Care Hospice Bereavement Coordinator Name | Role | Phone | + +------+ + | Rodolfo Cruz MD | PCP | | + +------+ + Encounter Details +--------+ + + + + | Date | Type | Department | Care Team | Description | +--------+ + + + + | 05/22/ | Abstract | [facility] | Yesi, | | | 2015 | | BECCA [address] | JOSE ALBERTO Linder [address] | | | | | [employer] [place], | [employer] [place] [place], | | | | | [place] [address] | [place] [address] | | | | | [phone] | [phone] | | | | | | | [...] STREETER | | | | | | [address] | | | | | | | | +--------+---------+ + + + | 11/21/ | Office | Cardiology | Yesi, | | | 2019 | Visit | | JOSE ALBERTO Linder [address] | | | | | | [employer] [place] | | | | | | [place] [address] | | | | | | [phone] | | | | | | | [...] Agency Comment | + + | [facility] | + + + +---------+ + [...] Agency Comment | + + | [facility] | + + + +---------+ + [...] Agency Comment | + + | [facility] | + + + +---------+ + [...] Cholesterol | | | | | | Ajime | | | | | + +---------+ [...]
--- OUTSIDE RECORDS SUMMARY | ~2019-04-12 | XMS | Encounter Summary ---
Demographics + + + | Address | [address] | | | [place] [address] | + + + | Home Phone [...] | Author | [facility] | | | and [place] | + + + | Organization | [facility] | [...] | | | | | [place] [address] | | + + + + + | Hunter Jackson | ECON | [place] | | + + + + + | Wes Jackson | ECON | [place], [place] | | + + + + + | Oziel Jackson | ECON | [place], [place] | | + + + + + Care Team Providers + +------+ + | Care Digital Campaign Manager Name | Role | Phone | [...] pain (Primary Dx); | | | | [place], | [address], | DDD (degenerative | | | | [place] [address] | [place] [address] | disc disease), | | | | [phone] | [phone] | lumbar; Facet | | | | [...] not feel pain. You must have a bulk tank driver to get home from the hospital. You [...] has no apparent deficits with short or [facility] memory. She has appropriate fund of knowledge [...] PT (multiple sessions over the years) and director critical care. Unfortunately she cont inues to have significant [...] STREET[place] | | | | | | [address] | | | | | | | | +--------+---------+ + + + | 11/21/ | Office | Cardiology | Yesi, | | | 2019 | Visit | | JOSE ALBERTO Linder [address] | | | | | | [place], | | | | | | [place] [address] | | | | | | [phone] | | | | | | | [...] 723.1 Soumya Jackson presents to the | [facility] | | fluoroscopy suite for fluoroscopically guided bilateral L4 medial [facility] | | branch blocks and bilateral [...] + + | Performing | Address | City/State/[facility] | Phone Number | | Organization | | | | + + + + + | [address] | [address] | [place] | [phone] | | [facility] | | [address] | | | - IMAGING | | [...]
--- OUTSIDE RECORDS SUMMARY | ~2019-04-12 | XMS | Encounter Summary ---
Demographics + + + | Address | [address] | | | [place] [address] | + + + | Home Phone [...] | [facility] | | | and [place] | + + + | Organization | [facility] | [...] [place] | | | | | [place] [address] | | + + + + + | Hunter Jackson | ECON | [place] | | + + + + + | Wes Jackson | ECON | [place], [place] | | + + + + + | Oziel Jackson | ECON | [place], [place] | | + + + + + Care Team Providers + +------+ + | Care Cook Helper Meat Name | Role | Phone | [...] + + | 10/14/ | Telephone | [facility] | Yesi, | Other (questions | | 2018 | | CARDIOLOGY [address] | JOSE ALBERTO Linder [address] | about test) | | | | [place], | [place], | | | | | [place] [address] | [place] [address] | | | | | [phone] | [phone] | | | | | | | [...] STREETER | | | | | | [address] | | | | | | | | +--------+---------+ + + + | 11/21/ | Office | Cardiology | Yesi, | | | 2019 | Visit | | JOSE ALBERTO Linder [address] | | | | | | [place] | | | | | | [place] [address] | | | | | | [phone] | | | | | | | | +--------+---------+ + + + documented as of this encounter Visit Diagnoses Not on filedocumented in this encounter"
--- OUTSIDE RECORDS SUMMARY | ~2019-04-12 | XMS | Encounter Summary ---
Demographics + + + | Address | [address] | | | [place] [address] | + + + | Home Phone [...] Author | [facility] | | | and Ohana | + + + | Organization | [facility] | [...] | | | | | [place] [address] | | + + + + + | Hunter Jackson | ECON | [place] | | + + + + + | Wes Jackson | ECON | [place], [place] | | + + + + + | Oziel Jackson | ECON | [place], [place] | | + + + + + Care Team Providers + +------+ + | Care Food Technology Teacher Name | Role | Phone | + +------+ + | Rodolfo Cruz MD | PCP | | + +------+ + Encounter Details +--------+ + + + + | Date | Type | Department | Care Team | Description | +--------+ + + + + | 10/25/ | Hospital | [facility] | Martkristinaalina Kristinamart, | | | 2014 | Encounter | MED CTR LABORATORY | [address] [facility] | | | | | [address] | [facility], | | | | | [place], [place] | [place] [address] | | | | | [address] | [phone] | | | | | [phone] | | | +--------+ + + + [...] STREETER | | | | | | [address] | | | | | | | | +--------+---------+ + + + | 11/21/ | Office | Cardiology | Yesi, | | | 2019 | Visit | | JOSE ALBERTO Linder [address] | | | | | | [place], | | | | | | [place] [address] | | | | | | [phone] | | | | | | | | +--------+---------+ + + + documented as of this encounter Visit Diagnoses Not on filedocumented in this encounter"
--- OUTSIDE RECORDS SUMMARY | ~2019-04-12 | XMS | Encounter Summary ---
Demographics + + + | Address | [address] | | | [place] [address] | + + + | Home Phone [...] + | Author | [facility] | | | and Ohana | + + + | Organization | [facility] | | | and [...] | | | | | [place] [address] | | + + + + + | Hunter Jackson | ECON | [place] | | + + + + + | Wes Jackson | ECON | [place], [place] | | + + + + + | Oziel Jackson | ECON | [place], [place] | | + + + + + Care Team Providers + +------+ + | Care Manager Material Name | Role | Phone | + +------+ + | Rodolfo Cruz MD | PCP | | + +------+ + Encounter Details +--------+ + + + + | Date | Type | Department | Care Team | Description | +--------+ + + + + | 03/21/ | Abstract | [facility] | Rodolfo Cruz, | | | 2013 | | MEDICINE [address] [place] [address] | MD [address] | | | | | [facility] | [place] | | | | | [place] [address] | [address] | | | | | [phone] | | | +--------+ + + + [...] [place] | | | | | | [address] | | | | | | | | +--------+---------+ + + + | 11/21/ | Office | Cardiology | Yesi, | | | 2019 | Visit | | JOSE ALBERTO Linder [address] | | | | | | [place], | | | | | | [place] [address] | | | | | | [phone] | | | | | | | [...]
--- OUTSIDE RECORDS SUMMARY | ~2019-04-12 | XMS | Encounter Summary ---
Demographics + + + | Address | [address] | | | [place] [address] | + + + | Home Phone [...] | Author | [facility] | | | and Ohana | + + + | Organization | [facility] | [...] S[place] | | | | | [place] [address] | | + + + + + | Hunter Jackson | ECON | [place] | | + + + + + | Wes Jackson | ECON | [place], [place] | | + + + + + | Oziel Jackson | ECON | [place], [place] | | + + + + + Care Team Providers + +------+ + | Care Dye Range Operator Cloth Name | Role | Phone | + [...] | JOSE ALBERTO Linder | [address] | | | | | [place], mixed | [address] | [place], | | | | | Chest pain, | [place] | [place] | | | | | unspecified | [place], | [address] | | | | | type | [place] | Phone: | | | | | Procedures | [address] | [phone] | | | | | [place] Nuclear | Phone: | Fax: | | | | | Stress Test | [phone] | [phone] | | | | | (Vasodilator | Fax: | | | | | | ) CHG | [phone] | | | | | | MYOCARDIAL | | | | | | | SPECT | | | | | | | MULTIPLE | | | | | | | STUDIES MD | | | | | | | CV STRS TST | | | | | | | XERS&/OR RX | | | | | | | CONT ECG W/O | | | | | | | I&R MD | | | | | | | [...] + + | 07/16/ | Hospital | [facility] | Yesi, | | | 2017 | Encounter | MED CTR NUCLEAR | JOSE ALBERTO Linder [address] | | | | | MEDICINE [address] | [place], | | | | | [place], | [place] [address] | | | | | [place] [address] | [phone] | | | | | [phone] | | | +--------+ + + + [...] | | | | 7 | | [address]) | | | | | | [...] STREETER | | | | | | [address] | | | | | | | | +--------+---------+ + + + | 11/21/ | Office | Cardiology | Yesi, | | | 2019 | Visit | | JOSE ALBERTO Linder [address] | | | | | | [place], | | | | | | [place] [address] | | | | | | [phone] | | | | | | | [...]
--- OUTSIDE RECORDS SUMMARY | ~2019-04-12 | XMS | Encounter Summary ---
Demographics + + + | Address | [address] | | | [place] [address] | + + + | Home Phone [...] Author | [facility] | | | and Ohana | + + + | Organization | [facility] [...] | | | | | [place] [address] | | + + + + + | Hunter Jackson | ECON | [place] | | + + + + + | Wes Jackson | ECON | [place], [place] | | + + + + + | Oziel Jackson | ECON | [place], [place] | | + + + + + Care Team Providers + +------+ + | Care Document Control Specialist Name | Role | Phone | [...] | 10/20/ | Office | [facility] | [place] | Bronchitis (Primary | | 2016 | Visit | CARE [address] | Colby Cooper MD | Dx) | | | | [place] | [address] | | | | | [address] | [place] | | | | | [phone] | [address] | | | | | | | [...] [place] | | | | | | [address] | | | | | | | | +--------+---------+ + + + | 11/21/ | Office | Cardiology | Yesi, | | | 2019 | Visit | | JOSE ALBERTO Linder [address] | | | | | | [place], | | | | | | [place] [address] | | | | | | [phone] | | | | | | | | +--------+---------+ + + + documented as of this encounter Visit Diagnoses + + | Diagnosis | + + | Bronchitis - Primary Bronchitis, not specified as acute or chronic | + + documented in this encounter
--- OUTSIDE RECORDS SUMMARY | ~2019-04-12 | XMS | Encounter Summary ---
Demographics + + + | Address | [address] | | | [place] [address] | + + + | Home Phone [...] [place] | | | | | [place] [address] | | + + + + + | Hnuter Jackson | ECON | [place] | | + + + + + | Wes Jackson | ECON | [place], [place] | | + + + + + | Oziel Jackson | ECON | [place], [place] | | + + + + + Care Team Providers + +------+ + | Care Piano Sounding Board Matcher Name | Role | Phone | + [...] [address] | | | | | [place], | [place], | | | | | [place] [address] | [place] [address] | | | | | [phone] | [phone] | | | | | | | [...] STREETER | | | | | | [address] | | | | | | | | +--------+---------+ + + + | 11/21/ | Office | Cardiology | Yesi, | | | 2019 | Visit | | JOSE ALBERTO Linder [address] | | | | | | [place] | | | | | | [place] [address] | | | | | | [phone] | | | | | | | | +--------+---------+ + + + documented as of this encounter Visit Diagnoses Not on filedocumented in this encounter"
--- OUTSIDE RECORDS SUMMARY | ~2019-04-12 | XMS | Encounter Summary ---
Demographics + + + | Address | [address] | | | [place] [address] | + + + | Home Phone [...] | Author | [facility] | | | and Ohana | + + + | Organization | [facility] | | [...] | | | | | [place] [address] | | + + + + + | Hunter Jackson | ECON | [place] | | + + + + + | Wes Jackson | ECON | [place], [place] | | + + + + + | Oziel Jackson | ECON | [place], [place] | | + + + + + Care Team Providers + +------+ + | Care Laborer Car Barn Name | Role | Phone | + [...] [place], | | | | | | [address] | [place] [address] | | | | | | Phone: | Phone: | | | | | | [phone] | [phone] | | | | | | Fax: | Fax: | | | | | | [phone] | [phone] | +--------+ + + + + + Reason for Visit + + + | Reason | Comments | + + + | Hypertension | | + + + Encounter Details +--------+---------+ + + + | Date | Type | Department | Care Team | Description | +--------+---------+ + + + | 06/22/ | Office | [facility] | Rodolfo Cruz, | Other specified | | 2016 | Visit | MEDICINE [facility] | [address] | hypothyroidism | | | | [address] [place] | [place] | (Primary Dx); | | | | [place] [address] | [address] | Depression with | | | | [phone] | | anxiety; Varicose | | | [...] 06/05/2010 and no changes required: Born in [facility] since 1965 Marital status: Children: 6, 5 living, 10 grandchildren 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 | [address] | [place] | [phone] | | [facility] | | [address] | | | - LABORATORY | | [...] | 0.77 | 0.60 - 1.30 | [facility] | | | | | mg/dL | [facility] | | | | | | MEDICAL | | | | | | CENTER - | | | | | | LABORATORY | | + + + + + + | eGFR if not | >60Comment: GLOMERULAR | >=60 | [place] | | | | FILTRATION | mL/min/1.73m2 | [facility] | | | QATARI | RATE,ESTIMATED | | MEDICAL | | | | mL/min/1.88v8Vynt than | | CENTER - | | [...] [address] | [place] | [phone] | | [facility] | | [address] | | | - LABORATORY | | [...] ST. | [address] | [place] | [phone] | | [facility] | | [address] | | | - LABORATORY | | [...]
--- OUTSIDE RECORDS SUMMARY | ~2019-04-12 | XMS | Encounter Summary ---
Demographics + + + | Address | [address] | | | [place] [address] | + + + | Home Phone [...] | Author | [facility] | | | and Ohana | + + + | Organization | [facility] | [...] | | | | | [place] [address] | | + + + + + | Hunter Jackson | ECON | [place] | | + + + + + | Wes Jackson | ECON | [place], [place] | | + + + + + | Oziel Jackson | ECON | [place], [place] | | + + + + + Care Team Providers + +------+ + | Care Quality Compliance Coordinator Name | Role | Phone | [...] + + | 11/04/ | Telephone | [facility] | Rodolfo Cruz, | Other | | 2014 | | MEDICINE [facility] | MD [address] | | | | | [place] | [place] | | | | | [place] [address] | [address] | | | | | [phone] | | | +--------+ + + + [...] STREETER | | | | | | [address] | | | | | | | | +--------+---------+ + + + | 11/21/ | Office | Cardiology | Yesi, | | | 2019 | Visit | | JOSE ALBERTO Linder [address] | | | | | | [place] | | | | | | [place] [address] | | | | | | [phone] | | | | | | | | +--------+---------+ + + + documented as of this encounter Visit Diagnoses Not on filedocumented in this encounter"
--- OUTSIDE RECORDS SUMMARY | ~2019-04-12 | XMS | Encounter Summary ---
Demographics + + + | Address | [address] | | | [place] [address] | + + + | Home Phone [...] Author | [facility] | | | and [place]ana | + + + | Organization | [facility] [...] | | | | | [place] [address] | | + + + + + | Hunter Jackson | ECON | [place] | | + + + + + | Wes Jackson | ECON | [place], [place] | | + + + + + | Oziel Jackson | ECON | [place], [place] | | + + + + + Care Team Providers + +------+ + | Care Therapeutic Specialist Name | Role | Phone | [...] | (Primary Dx) | | | | [facility] | [employer], [place] | | | | | [place] [address] | [address] | | | | | [phone] | | | +--------+ + + + [...] [address] | | | | | | [place], | | | | | | [place] [address] | | | | | | [phone] | | | | | | | [...] 13 | 7 - 18 mg/dL | [facility] | | | | | | [facility] | | | | | | MEDICAL | | | | | | CENTER - | | | | | | LABORATORY | | + + + + + + | Creatinine | 0.76 | 0.60 - 1.30 | [facility] | | | | | mg/dL | [facility] | | | | | | MEDICAL | | | | | | CENTER - | | | | | | LABORATORY | | + + + + + + | eGFR if not | >60Comment: GLOMERULAR | >=60 | [facility] | | | | FILTRATION | mL/min/1.73m2 | [facility] | | | EQUATORIAL GUINEAN | RATE,ESTIMATED | | MEDICAL | | | | mL/min/1.38x8Scia than | | CENTER - | | [...] ST. | [address] | [place] | [phone] | | [facility] | | [address] | | | - LABORATORY | | | | + + + + + documented in this encounter Visit Diagnoses + + | Diagnosis | + + | Pulmonary nodules - Primary Other nonspecific abnormal finding of lung field | + + documented in this encounter"
--- OUTSIDE RECORDS SUMMARY | ~2019-04-12 | XMS | Encounter Summary ---
Demographics + + + | Address | [address] | | | [place] [address] | + + + | Home Phone [...] + | Author | [facility] | | | and [place]ana | + + + | Organization | [facility] | [...] | | | | | [place] [address] | | + + + + + | Hunter Jackson | ECON | [place] | | + + + + + | Wes Jackson | ECON | [place], [place] | | + + + + + | Oziel Jackson | ECON | [place], [place] | | + + + + + Care Team Providers + +------+ + | Care Taste Tester Name | Role | Phone | + +------+ + | Rodolfo Cruz MD | PCP | | + +------+ + Reason for Visit + + + | Reason | Comments | + + + | Records Request | ER visit 10[facility]31-2015 at [facility] | + + + Encounter [...] visit 10-31-2015 at | | | | [facility] | [place], [place] | [facility] | | | | [place] [address] | [address] | ) | | | | [phone] | | | +--------+ + + + [...] STREETER | | | | | | [address] | | | | | | | | +--------+---------+ + + + | 11/21/ | Office | Cardiology | Yesi, | | | 2020 | Visit | | JOSE ALBERTO Linder [address] | | | | | | [place], | | | | | | [place] [address] | | | | | | [phone] | | | | | | | | +--------+---------+ + + + documented as of this encounter Visit Diagnoses Not on filedocumented in this encounter"
--- OUTSIDE RECORDS SUMMARY | ~2019-04-12 | XMS | Encounter Summary ---
Demographics + + + | Address | [address] | | | [place] [address] | + + + | Home Phone [...] | [facility] | | | and Ohana | + + + | Organization | [facility] | [...] | | | | | [place] [address] | | + + + + + | Hunter Jackson | ECON | [place] | | + + + + + | Wes Jackson | ECON | [place], [place] | | + + + + + | Oziel Jackson | ECON | [place], [place] | | + + + + + Care Team Providers + +------+ + | Care Brake Repairer Name | Role | Phone | [...] [place], | | | | | | [address] | [place] [address] | | | | | | Phone: | Phone: | | | | | | [phone] | [phone] | | | | | | Fax: | Fax: | | | | | | [phone] | [phone] | +--------+ + + + + + [...] + + | 06/16/ | Office | [facility] | Rodolfo Cruz, | Essential | | 2015 | Visit | MEDICINE [facility] | [address] | hypertension | | | | [facility] | [place] | (Primary Dx); | | | | [place] [address] | [address] | Anemia; Depression | | | | [phone] | | with anxiety; | | | [...] our last visit, seen at ER in [place]. 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 RTC 3 weeks. lexapro trial. documented in [...] STREETER | | | | | | [address] | | | | | | | | +--------+---------+ + + + | 11/21/ | Office | Cardiology | Yesi, | | | 2019 | Visit | | JOSE ALBERTO Linder [address] | | | | | | [place], | | | | | | [place] [address] | | | | | | [phone] | | | | | | | [...] | Globulin % | | | [facility] | | [...] + | [facility] | [address] | [place] | [phone] | | [facility] | | [address] | | | - LABORATORY | | | | + + + + + | [facility] | [address] | [place], [place] | | | [facility] | | [address] | | | - LABORATORY | | [...] [address] | [place] | [phone] | | [facility] | | [address] | | | - LABORATORY | | | | + + + + + | [facility] | [address] | [place] | | | [facility] | | [address] | | | - LABORATORY | | [...] mL/min/1.73m2 | [facility] | | | [place] | RATE,ESTIMATED | | MEDICAL | | | | mL/min/1.02s5Qczf than | | CENTER - | | [...] | 9.8 | 8.3 - 10.5 | [facility] | | | | | mg/dL | [facility] | | | | | | MEDICAL | | | | | | CENTER - | | | | | | LABORATORY | | + + + + + + | Albumin | 4.0 | 3.2 - 5.0 g/dL | [facility] | | | | | | [facility] | | | | [...] + | [facility] | [address] | [place] | [phone] | | [facility] | | [address] | | | - LABORATORY | | | | + + + + + | [facility] | [address] | [place] | | | [facility] | | [address] | | | - LABORATORY | | [...] - 1.030 | [facility] | | | Glennie | | | [facility] | | [...] + | [facility] | [address] | [place], [place] | [phone] | | [facility] | | [address] | | | - LABORATORY | | | | + + + + + | [facility] | [address] | [place], [place] | | | [facility] | | [address] | | | - LABORATORY | | [...] [address] | [place] | [phone] | | [facility] | | [address] | | | - LABORATORY | | | | + + + + + | [facility] | [address] | [place] | | | [facility] | | [address] | | | - LABORATORY | | [...] ST. | [address] | [place], [place] | [phone] | | [facility] | | [address] | | | - LABORATORY | | | | + + + + + | [facility] | [address] | [place], [place] | | | [facility] | | [address] | | | - LABORATORY | | [...] | Estimated | 117 | mg/dL | [facility] | | | Average | | | [address] | [place] | [phone] | | [facility] | | [address] | | | - LABORATORY | | | | + + + + + | [facility] | [address] | [place] | | | [facility] | | [address] | | | - LABORATORY | | [...]
--- OUTSIDE RECORDS SUMMARY | ~2019-04-12 | XMS | Encounter Summary ---
Demographics + + + | Address | [address] | | | [place] [address] | + + + | Home Phone [...] + | Author | [facility] | | | and [place] | + + + | Organization | [facility] | | | and [place] | + + + | Address | Unknown | + + + | Phone | Unavailable | + + + Support + + + + + | Name | Relationship | Address | Phone | + + + + + | Osmin Jackson | ECON | [address] | | | | | [place] [address] | | + + + + + | Hunter Jackson | ECON | [place] | | + + + + + | Wes Jackson | ECON | [place], [place] | | + + + + + | Oziel Jackson | ECON | [place], [place] | | + + + + + Care Team Providers + +------+ + | Care Correspondence Review Clerk Name | Role | Phone | + +------+ + | Rodolfo Cruz MD | PCP | | + +------+ + Encounter Details +--------+ + + + + | Date | Type | Department | Care Team | Description | +--------+ + + + + | 02/16/ | Orders Only | [facility] | Rodolfo Cruz, | Pulmonary nodule | | 2013 | | MEDICINE [address] [place] [address] | MD [address] | (Primary Dx) | | | | [facility] | [place], [place] | | | | | [place] [address] | [address] | | | | | [phone] | | | +--------+ + + + [...] [place] | | | | | | [address] | | | | | | | | +--------+---------+ + + + | 11/21/ | Office | Cardiology | Yesi, | | | 2019 | Visit | | JOSE ALBERTO Linder [address] | | | | | | [place], | | | | | | [place] [address] | | | | | | [phone] | | | | | | | [...] mL/min/1.73m2 | [facility] | | | [facility] | | | MEDICAL | | | [...] + | [facility] | [address] | [place] | [phone] | | [facility] | | [address] | | | - LABORATORY | | | | + + + + + | [facility] | [address] | [place] | | | [facility] | | [address] | | | - LABORATORY | | [...] + | [facility] | [address] | [place] | [phone] | | [facility] | | [address] | | | - LABORATORY | | | | + + + + + | [facility] | [address] | [place] | | | [facility] | | [address] | | | - LABORATORY | | | | + + + + + documented in this encounter Visit Diagnoses + + | Diagnosis | + + | Pulmonary nodule - Primary Solitary pulmonary nodule | + + documented in this encounter"
--- OUTSIDE RECORDS SUMMARY | ~2019-04-12 | XMS | Encounter Summary ---
Demographics + + + | Address | [address] | | | [place] [address] | + + + | Home Phone [...] | Author | [facility] | | | and [place]ana | + + + | Organization | [facility] | [...] [place] | | | | | [place] [address] | | + + + + + | Hunter Jackson | ECON | [place] | | + + + + + | Wes Jackson | ECON | [place], [place] | | + + + + + | Oziel Jackson | ECON | [place], [place] | | + + + + + Care Team Providers + +------+ + | Care Mold Blower Name | Role | Phone | + [...] | | | | | cervical | [address] | | | | | | region DDD | Phone: | | | | | | (degenerativ | [phone] | | | | | | e disc | Fax: | | | | | | disease), | [phone] | | | | | | cervical [...] + + | 07/23/ | Telephone | [facility] [place] | Yany, | Results, Imaging | | 2017 | | PHYSIATRY [address] | [address] | (Results) | | | | [place], | [facility], | | | | | [place] [address] | [place] [address] | | | | | [phone] | [phone] | | | | | | | [...] | | | | | | [place] [address] | | | | | | [phone] | | | | | | | [...]
--- OUTSIDE RECORDS SUMMARY | ~2019-04-12 | XMS | Encounter Summary ---
Demographics + + + | Address | [address] | | | [place] [address] | + + + | Home Phone [...] Author | [facility] | | | and Ohana | + + + | Organization | [facility] | | [...] | | | | | [place] [address] | | + + + + + | Hunter Jackson | ECON | [place] | | + + + + + | Wes Jackson | ECON | [place], [place] | | + + + + + | Oziel Jackson | ECON | [place], [place] | | + + + + + Care Team Providers + +------+ + | Care Patient Registration Supervisor Name | Role | Phone | + +------+ + PCP | Unavailable | + +------+ + Encounter Details +--------+ + + + + | Date | Type | Department | Care Team | Description | +--------+ + + + + | 08/07/ | Hospital | [facility] | | | | 2011 | Encounter | MED CTR CARDIAC | | | | | | SERVICES [address] | | | | | | [place], | | | | | | [place] [address] | | | +--------+ + + + [...] REFERRING AND READING PHYSICIAN: Wes Capone MD BOTTLE FEEDER: Kim Spicer CLINICAL HISTORY: Abnormal brain scan. [...] DISEASE . DICTATED BY: Wes Capone MD Neurologist/Land Title Examiner JOB #: [id number] EXT JOB #:[id number] cc: Rodolfo Cruz MD <Electronically Signed by Wes Capone MD> 08/15/10 2[address] Mar[address] Chua MD - 08/07/2010 1:32 PM PDTDATE: 08/12/2010 VISUAL EVOKED POTENTIALS REFERRING AND READING PHYSICIAN: Wes Capone MD BOTTLE FEEDER: Kim Spicer LOCATION: Outpatient. DIAGNOSIS: Abnormal brain [...] TING DISEASE. DICTATED BY: Wes Capone MD Neurologist/Land Title Examiner JOB #: [id number] EXT JOB #:[id number] cc: oRdolfo Cruz MD <Electronically Signed by Wes Capone [...] | | | | | | [place] [address] | | | | | | [phone] | | | | | | | | +--------+---------+ + + + documented as of this encounter Visit Diagnoses Not on filedocumented in this encounter"
--- OUTSIDE RECORDS SUMMARY | ~2019-04-12 | XMS | Encounter Summary ---
Demographics + + + | Address | [address] | | | [place] [address] | + + + | Home Phone [...] Author | [facility] | | | and Ohana | + + + | Organization | [facility] | | | and [...] | | | | | [place] [address] | | + + + + + | Hunter Jackson | ECON | [place] | | + + + + + | Wes Jackson | ECON | [place], [place] | | + + + + + | Oziel Jackson | ECON | [place], [place] | | + + + + + Care Team Providers + +------+ + | Care Heavy Forging Machine Operator Name | Role | Phone [...] + + | 02/28/ | [facility] | [facility] | Ulysses Jensen, | Osteoarthritis of | | 2016 | Visit | ORTHOPEDIC SURGERY | [address] | first | | | | [address] [facility] | [place] [address] | carpometacarpal | | | | [place] | [address] | (CMC) joint of one | | | | [address] | | hand (Primary Dx); | | | | [phone] | | Rotator cuff | | | [...] STREETER | | | | | | [address] | | | | | | | | +--------+---------+ + + + | 11/21/ | Office | Cardiology | Yesi, | | | 2019 | Visit | | JOSE ALBERTO Linder [address] | | | | | | [place], | | | | | | [place] [address] | | | | | | [phone] | | | | | | | [...] | (Comment | | Intramuscular, ONCE, [facility] 02/29/16 | | AM PDT | | [...] | | | | | ONCE, [facility] 02/29/16 at 0000, For 1 | | | | | | | dose, Shake well. Not for IV | | | | | | | use., | | | | | | + +-------+ +-------+---+ + +---+---+ | | | +---+---+ documented in this encounter"
--- OUTSIDE RECORDS SUMMARY | ~2019-04-12 | XMS | Encounter Summary ---
Demographics + + + | Address | [address] | | | [place] [address] | + + + | Home Phone [...] [facility] | | | and Ohana | + + + | Organization | [facility] | [...] | | | | | [place] [address] | | + + + + + | Hunter Jackson | ECON | [place] | | + + + + + | Wes Jackson | ECON | [place], [place] | | + + + + + | Oziel Jackson | ECON | [place], [place] | | + + + + + Care Team Providers + +------+ + | Care Wood Mechanist Name | Role | Phone | + [...] + | 11/06/ | Office | [facility] | Rodolfo Cruz, | Hives of unknown | | 2016 | Visit | MEDICINE [address] | MD [address] | origin (Primary Dx); | | | | [address] [place] | [place] [address] | Stress reaction; | | | | [place] [address] | [address] | Hyperglycemia; Pain | | | | [phone] | | | +--------+---------+ + + + [...] No energy. Wi th ER visit in [place] last week. This is persisting except for [...] | | | | | | [place] [address] | | | | | | [phone] | | | | | | | [...] - 1.030 | [facility] | | | [address] | | | [facility] | | [...] [address] | [place] | [phone] | | [facility] | | [address] | | | - LABORATORY | | [...] ST. | [address] | [place], [place] | [phone] | | [facility] | | [address] | | | - LABORATORY | | [...] | | | | | mg/dL | [facility] | | | | | | MEDICAL | | | | | | CENTER - | | | | | | LABORATORY | | + + + + + + | eGFR if not | >60Comment: GLOMERULAR | >=60 | [facility] | | | | FILTRATION | mL/min/1.73m2 | [facility] | | | BENINESE | RATE,ESTIMATED | | MEDICAL | | | | mL/min/1.87z5Huvp than | | CENTER - | | [...] | | | | | mg/dL | [facility] | | | | | [...] + | [facility] | [address] | [place] | [phone] | | [facility] | | [address] | | | - LABORATORY | | [...] ST. | [address] | [place], [place] | [phone] | | [facility] | | [address] | | | - LABORATORY | | [...]
--- OUTSIDE RECORDS SUMMARY | ~2019-04-12 | XMS | Encounter Summary ---
Demographics + + + | Address | [address] | | | [place] [address] | + + + | Home Phone [...] [facility] | | | and Ohana | + + + | Organization | [facility] | [...] [place] | | | | | [place] [address] | | + + + + + | Hunter Jackson | ECON | [place] | | + + + + + | Wes Jackson | ECON | [place], [place] | | + + + + + | Oziel Jackson | ECON | [place], [place] | | + + + + + Care Team Providers + +------+ + | Care Heel Molder Name | Role | Phone | [...] + + | 09/26/ | Office | [facility] | Christopher Simms, | Chest pain, | | 2017 | Visit | CARDIOLOGY [address] | [address] | unspecified type | | | | [place], | [place], | (Primary Dx) | | | | [place] [address] | [place] [address] | | | | | [phone] | [phone] | | | | | | | [...] procedure. 6. Make sure you have a cart driver to take you home. Your cart driver will also need to sign you [...] hospital line at and ask for nursing broadcast supervisor t o let them know you [...] she was seen at the ED of [facility] in [place] because of the severe substernal chest pressure. She described it as a chest pressure like "bricks on my chest", 12/19 that r adiated to the back and shoulder. Patient is physically active and exercises regularly by a quatic exercises at the [employer] up to 3 times weekly. Patient also [...] RESULTS reviewed during visit today primarily from [facility]: LIPID Lab Results Component Value Date [...] PLTEX 370 09/18/2016 I reviewed records from [facility] for emergency department visit on 09/18/16 which is summarized in the HPI. Above data and testing is reviewed this visit; testing below is historical data unless othe rwise specified. ASSESSMENT: 1. Chest pain/chest pressure: A. Seen at [facility] they had EKG and sent her home stating it was GERD B. Seen in the emergency room at [facility] for chest pain. She was schedule for stre ss test and discharged home. C. Stress Test 05/16/16, is maximal asymptomatic stress test[facility] very poor function status, [...] failure.She is in a class I of [facility] sociation functional class. There is [...] statins at this point. PLAN: 1. Recommended [facility] right radial approach to rule out CAD for persistent substernal chest pr essure.The risks and benefits of the procedure including alternative treatment were discusse d with the patient in length. The patient decides to proceed with the procedure. 2. Advised to continue to carry nitroglycerin 3. Follow-up in 4-6 weeks. I Rei hSah am acting as a scribe on behalf of, and in the presence of Christopher Simms MD. I have reviewed and edited this note. RL Whipple 09/26/2016 I, Christopher Simms MD, personally performed the services described in this documentation, as scribed in my presence and it is both accurate and complete. RL Whipple 017 11:15 Electronically signed by: Christopher Simms MD [facility] 09/26/2016 Portions of this chart may have been created with [employer] voice recognition software. Occasi onal wrong-word or [...] STREETER | | | | | | [address] | | | | | | | | +--------+---------+ + + + | 11/21/ | Office | Cardiology | Yesi, | | | 2019 | Visit | | JOSE ALBERTO Linder [address] | | | | | | [place], | | | | | | [place] [address] | | | | | | [phone] | | | | | | | [...] MD | | | | | | ([id number]) on 09/26/2016 | | | | | [...]
--- OUTSIDE RECORDS SUMMARY | ~2019-04-12 | XMS | Encounter Summary ---
Demographics + + + | Address | [address] | | | [place] [address] | + + + | Home Phone [...] | Author | [facility] | | | and [place]ana | + + + | Organization | [facility] | [...] | | | | | [place] [address] | | + + + + + | Hunter Jackson | ECON | [place] | | + + + + + | Wes Jackson | ECON | [place], [place] | | + + + + + | Oziel Jackson | ECON | [place], [place] | | + + + + + Care Team Providers + +------+ + | Care Teletypewriter Installer Name | Role | Phone | + +------+ + | Rodolfo Cruz MD | PCP | | + +------+ + Encounter Details +--------+ + + + + | Date | Type | Department | Care Team | Description | +--------+ + + + + | 08/05/ | Orders Only | [facility] | Rodolfo Cruz, | History of hepatitis | | 2015 | | MEDICINE [address] [place] [address] | MD [address] | (Primary Dx) | | | | [facility] | [place], [place] | | | | | [place] [address] | [address] | | | | | [phone] | | | +--------+ + + + [...] | | | | | | [place] [address] | | | | | | [phone] | | | | | | | [...] | [facility] | | | | [id number] or greater | | | | | [...] | | | | | [place] [address] | | | | + + + [...] [place] | | | | | | [address] | | | | + + + [...] [address] | [place] [address] | [phone] | + + + + + documented in this encounter Visit Diagnoses + + | Diagnosis | + + | History of hepatitis - Primary Personal history of other infectious and parasitic | | disease | + + documented in this encounter"
--- OUTSIDE RECORDS SUMMARY | ~2019-04-12 | XMS | Encounter Summary ---
Demographics + + + | Address | [address] | | | [place] [address] | + + + | Home Phone [...] | Author | [facility] | | | and [place] | + + + | Organization | [facility] | [...] | | | | | [place] [address] | | + + + + + | Hunter Jackson | ECON | [place] | | + + + + + | Wes Jackson | ECON | [place], [place] | | + + + + + | Oziel Jackson | ECON | [place], [place] | | + + + + + Care Team Providers + +------+ + | Care Fabric Worker Supervisor Name | Role | Phone | + +------+ + PCP | Unavailable | + +------+ + Encounter Details +--------+ + + + + | Date | Type | Department | Care Team | Description | +--------+ + + + + | 04/04/ | [facility] | [facility] | Rodolfo Cruz, | | | 2008 | Encounter | MED CTR XRAY [address] | [address] | | | | | [place] | [place], [place] | | | | | [place] [address] | [address] | | | | | [phone] | | | +--------+ + + + [...] | | | | | | [place] [address] | | | | | | [phone] | | | | | | | | +--------+---------+ + + + documented as of this encounter Visit Diagnoses Not on filedocumented in this encounter"
--- OUTSIDE RECORDS SUMMARY | ~2019-04-12 | XMS | Encounter Summary ---
Demographics + + + | Address | [address] | | | [place] [address] | + + + | Home Phone [...] | [facility] | | | and [place]ana | + + + | Organization | [facility] [...] | | | | | [place] [address] | | + + + + + | Hunter Jackson | ECON | [place] | | + + + + + | Wes Jackson | ECON | [place], [place] | | + + + + + | Oziel Jackson | ECON | [place], [place] | | + + + + + Care Team Providers + +------+ + | Care Licensed Staff Mft Name | Role | Phone | + [...] | 04/25/ | Refill | [facility] | Rodolfo Cruz, | Medication Refill | | 2013 | | MEDICINE [address] | MD [address] | | | | | [place] | [place] [address] | | | | | [place] [address] | [address] | | | | | [phone] | | | +--------+--------+ + + + [...] | | | | | | [place] [address] | | | | | | [phone] | | | | | | | | +--------+---------+ + + + documented as of this encounter Visit Diagnoses + + | Diagnosis | + + | Insomnia - Primary Insomnia, unspecified | + + documented in this encounter"
--- OUTSIDE RECORDS SUMMARY | ~2019-04-12 | XMS | Encounter Summary ---
Demographics + + + | Address | [address] | | | [place] [address] | + + + | Home Phone [...] Author | [facility] | | | and [place]ana | + + + | Organization | [facility] | [...] | | | | | [place] [address] | | + + + + + | Hunter Jackson | ECON | [place] | | + + + + + | Wes Jackson | ECON | [place], [place] | | + + + + + | Oziel Jackson | ECON | [place], [place] | | + + + + + Care Team Providers + +------+ + | Care Multi Disciplined Language Analyst Name | Role | Phone | [...] + + | 10/27/ | Telephone | [facility] | Rodolfo Cruz, | Results | | 2013 | | MEDICINE [facility] [address] | MD [address] | | | | | [place] | [place] [address] | | | | | [place] [address] | [address] | | | | | [phone] | | | +--------+ + + + [...] STREETER | | | | | | [address] | | | | | | | | +--------+---------+ + + + | 11/21/ | Office | Cardiology | Yesi, | | | 2019 | Visit | | JOSE ALBERTO Linder [address] | | | | | | [place], | | | | | | [place] [address] | | | | | | [phone] | | | | | | | | +--------+---------+ + + + documented as of this encounter Visit Diagnoses Not on filedocumented in this encounter"
--- OUTSIDE RECORDS SUMMARY | ~2019-04-12 | XMS | Encounter Summary ---
Demographics + + + | Address | [address] | | | [place] [address] | + + + | Home Phone [...] + | Author | [facility] | | | and [place] | + + + | Organization | [facility] | | | [...] | | | | | [place] [address] | | + + + + + | Hunter Jackson | ECON | [place] | | + + + + + | Wes Jackson | ECON | [place], [place] | | + + + + + | Oziel Jackson | ECON | [place], [place] | | + + + + + Care Team Providers + +------+ + | Care Water Jet Loom Fixer Name | Role | Phone | + +------+ + | Rodolfo Cruz MD | PCP | | + +------+ + Encounter Details +--------+ + + + + | Date | Type | Department | Care Team | Description | +--------+ + + + + | 10/25/ | Hospital | [facility] | Rodolfo Cruz, | History of | | 2014 | Encounter | MED CTR LABORATORY | MD [address] | hepatitis; Pulmonary | | | | [address] [place] | [place], [place] | nodules; Other | | | | [place], [place] | [address] | specified | | | | [address] | | hypothyroidism; | | | | [phone] | | Essential | | | | [...] [place] | | | | | | [address] | | | | | | | | +--------+---------+ + + + | 11/21/ | Office | Cardiology | Yesi, | | | 2020 | Visit | | JOSE ALBERTO Linder [address] | | | | | | [place], | | | | | | [place] [address] | | | | | | [phone] | | | | | | | [...] | | | Sensitive | | | [facility] | | | | [...] [address] | [place] | [phone] | | [facility] | | [address] | | | - LABORATORY | | [...] [address] | [place] | [phone] | | [facility] | | [address] | | | - LABORATORY | | [...] + | [facility] | [address] | [place] | [phone] | | [facility] | | [address] | | | - LABORATORY | | [...] [address] | [place] | [phone] | | [facility] | | [address] | | | - LABORATORY | | [...] | | | | mg/dL | [facility] | | | | | | MEDICAL | | | | | | CENTER - | | | | | | LABORATORY | | + + + + + + | eGFR if not | >60Comment: GLOMERULAR | >=60 | [facility] | | | | FILTRATION | mL/min/1.73m2 | [facility] | | | TRINIDADIAN | RATE,ESTIMATED | | MEDICAL | | | | mL/min/1.46r5Qmct than | | CENTER - | | [...] | 8.9 | 8.3 - 10.5 | [facility] | | | | | mg/dL | [facility] | | | | | [...] [address] | [place] | [phone] | | [facility] | | [address] | | | - LABORATORY | | [...] | LAB [facility] | | | | [id number] or greater | | | | | [...] | | | | | [place] [address] | | | | + + + [...] [place] | | | | | | [address] | | | | + + + + + + + + | Specimen | + + | Blood specimen | | (specimen) | + + + + + + + | Performing | Address | City/State/Zipcode | Phone Number | | Organization | | | | + + + + + | [facility] | [address] | [place] [address] | [phone] | + + + + + documented [...]
--- OUTSIDE RECORDS SUMMARY | ~2019-04-12 | XMS | Encounter Summary ---
Demographics + + + | Address | [address] | | | [place] [address] | + + + | Home Phone [...] | Author | [facility] | | | and [place] | + + + | Organization | [facility] | [...] | | | | | [place] [address] | | + + + + + | Hunter Jackson | ECON | [place] | | + + + + + | Wes Jackson | ECON | [place], [place] | | + + + + + | Oziel Jackson | ECON | [place], [place] | | + + + + + Care Team Providers + +------+ + | Care Culinary Specialist Name | Role | Phone | [...] bone | Rodolfo Reilly MD | [address] | | | | | lesions on | [address] | [place], | | | | | xray | [address]VE [place] | [place] [address] | | | | | Procedures | [place], [place] | Phone: | | | | | CT Chest | [address] | [phone] | | | | | Abdomen | Phone: | Fax: | | | | | Pelvis w | [phone] | [phone] | | | | | Contrast | Fax: | | | | | | | [phone] | | +--------+--------+ + + + + [...] bone | Rodolfo Reilly MD | [address] | | | | | lesions on | [address] | [place], | | | | | xray | AVE [place] | [place] [address] | | | | | Procedures | [place], [place] | Phone: | | | | | CT Chest | [address] | [phone] | | | | | Abdomen | Phone: | Fax: | | | | | Pelvis w | [phone] | [phone] | | | | | Contrast | Fax: | | | | | | | [phone] | | +--------+--------+ + + + + Encounter Details +--------+ + + + + | Date | Type | Department | Care Team | Description | +--------+ + + + + | 11/09/ | Hospital | [facility] | Rodolfo Cruz, | Lytic bone lesions | | 2013 | Encounter | MED CTR CT [address] | MD [address] | on xray | | | | [place], | [place], [place] | | | | | [place] [address] | [address] | | | | | [phone] | | | +--------+ + + + [...] [place] | | | | | | [address] | | | | | | | | +--------+---------+ + + + | 11/21/ | Office | Cardiology | Yesi, | | | 2019 | Visit | | JOSE ALBERTO Linder [address] | | | | | | [place], | | | | | | [place] [address] | | | | | | [phone] | | | | | | | [...] intravenous | | administration of 90 mL [id number] contrast. Oral contrast was administered. | | [...] + | MISCELLANEOUS LAB | | | [phone] | + +---------+ + + | MISCELANIOUS LAB | | | [phone] | + +---------+ + + documented in [...]
--- OUTSIDE RECORDS SUMMARY | ~2019-04-12 | XMS | Encounter Summary ---
Demographics + + + | Address | [address] | | | [place] [address] | + + + | Home Phone [...] Author | [facility] | | | and [place] | + + + | Organization | [facility] | | | [...] | | | | | [place] [address] | | + + + + + | Hunter Jackson | ECON | [place] | | + + + + + | Wes Jackson | ECON | [place], [place] | | + + + + + | Oziel Jackson | ECON | [place], [place] | | + + + + + Care Team Providers + +------+ + | Care Apartment Community Manager Name | Role | Phone | [...] + + | 03/22/ | Telephone | [facility] | Rodolfo Cruz, | Diagnostic Order; | | 2014 | | MEDICINE [address] | MD [address] | Lab Order | | | | [address]reet [facility] | [place] | | | | | [place] [address] | [address] | | | | | [phone] | | | +--------+ + + + [...] STREETER | | | | | | [address] | | | | | | | | +--------+---------+ + + + | 11/21/ | Office | Cardiology | Yesi, | | | 2019 | Visit | | JOSE ALBERTO Linder [address] | | | | | | [place] | | | | | | [place] [address] | | | | | | [phone] | | | | | | | [...] mL/min/1.73m2 | [facility] | | | SPANISH | RATE,ESTIMATED | | MEDICAL | | | | mL/min/1.52e2Rnxi than | | CENTER - | | [...] [address] | [place] | [phone] | | [facility] | | [address] | | | - LABORATORY | | [...] Dr, | | | | | | [place] [address] | | | | + + + + + + + + | Specimen | + + | Blood specimen | | (specimen) | + + + + + + + | Performing | Address | City/State/Zipcode | Phone Number | | Organization | | | | + + + + + | [facility] | [address] | [place] [address] | [phone] | + + + + + documented in this encounter Visit Diagnoses + + | Diagnosis | + + | Pre-procedure lab exam - Primary Pre-procedural laboratory examination | + + documented in this encounter"
--- OUTSIDE RECORDS SUMMARY | ~2019-04-12 | XMS | Encounter Summary ---
Demographics + + + | Address | [address] | | | [place] [address] | + + + | Home Phone [...] | Author | [facility] | | | and [place] | + + + | Organization | [facility] [...] | | | | | [place] [address] | | + + + + + | Hunter Jackson | ECON | [place] | | + + + + + | Wes Jackson | ECON | [place], [place] | | + + + + + | Oziel Jackson | ECON | [place], [place] | | + + + + + Care Team Providers + +------+ + | Care Crepe Sole Wire Brusher Name | Role | Phone | + [...] hypertension | [address] | [address] | | | | | | [address] [place] | [address] | | | | | | [place], [place] | [place], | | | | | | [address] | [place] [address] | | | | | | Phone: | Phone: | | | | | | [phone] | [phone] | | | | | | Fax: | Fax: | | | | | | [phone] | [phone] | +--------+ + + + + + [...] [place], | | | | | | [address] | [place] [address] | | | | | | Phone: | Phone: | | | | | | [phone] | [phone] | | | | | | Fax: | Fax: | | | | | | [phone] | [phone] | +--------+ + + + + + [...] Pulmonary | Rodolfo Reilly MD | [address] | | | | | nodules | [address] | [place], | | | | | Procedures | [address]VE [place] | [place] [address] | | | | | CT Chest w | [place], [place] | Phone: | | | | | Contrast | [address] | [phone] | | | | | AFTER | Phone: | Fax: | | | | | 02/17/15 | [phone] | [phone] | | | | | | Fax: | | | | | | | [phone] | | +--------+--------+ + + + + Reason for Visit + + + | Reason | Comments | + + + | Follow-up | Back pain. Review Labs | + + + | Epistaxis | In ER at [facility] on 08/22/14 | + + + Encounter Details +--------+---------+ + + + | Date | Type | Department | Care Team | Description | +--------+---------+ + + + | 08/24/ | Office | [facility] | Rodolfo Cruz, | Insomnia (Primary | | 2015 | Visit | MEDICINE [address] | [address] | Dx); Pulmonary | | | | [address] [place] | [place] | nodules; Recurrent | | | | [facility] [place] [address] | [address] | epistaxis; Other | | | | [phone] | | specified | | | | [...] [place] | | | | | | [address] | | | | | | | | +--------+---------+ + + + | 11/21/ | Office | Cardiology | Yesi, | | | 2019 | Visit | | JOSE ALBERTO Linder [address] | | | | | | [address] [place], | | | | | | [place] [address] | | | | | | [phone] | | | | | | | [...] + | [address] | [address] | [place] | [phone] | | [facility] | | [address] | | | - IMAGING | | [...] | + + + + + | [address] | [address] | [place] | [phone] | | [facility] | | [address] | | | - LABORATORY | | [...] | samples are screened | uIU/mL | [facility] | | | | using a 2nd [...] + | [facility] [facility] | [address] | [place] | [phone] | | [facility] | | [address] | | | - LABORATORY | | [...]
--- OUTSIDE RECORDS SUMMARY | ~2019-04-12 | XMS | Encounter Summary ---
Demographics + + + | Address | [address] | | | [place] [address] | + + + | Home Phone [...] | Author | [facility] | | | and [place] | + + + | Organization | [facility] | | | [...] | | | | | [place] [address] | | + + + + + | Gisele Jackson | ECON | [place], [place] | | + + + + + | Wes Jackson | ECON | [place], [place] | | + + + + + | Oziel Jackson | ECON | [place], [place] | | + + + + + Care Team Providers + +------+ + | Care Systems Administration Analyst Name | Role | Phone | [...] | | | | | midline | [facility] | | | | | thoracic | PA-C [address] | [address] | | | | | back pain | [address] | AVE | | | | | Spondylosis | [place] | [place], [place] | | | | | of cervical | [address] | [address] | | | | | region | Phone: | Phone: | | | | | without | [phone] | [phone] | | | | | myelopathy | Fax: | Fax: | | | | | or | [phone] | [phone] | | | | | radiculopath | [...] | | | | | midline | [facility] | | | | | thoracic | PA-C [address] | [address] | | | | | back pain | [address] | AVE | | | | | Spondylosis | [place] | [place] | | | | | of cervical | [address] | [address] | | | | | region | Phone: | Phone: | | | | | without | [phone] | [phone] | | | | | myelopathy | Fax: | Fax: | | | | | or | [phone] | [phone] | | | | | radiculopath | [...] | | Required | | midline | [facility] | | | | | thoracic | PA-C [address] | [address] | | | | | back pain | [address] | AVE | | | | | Spondylosis | [place] | [place] | | | | | of cervical | [address] | [address] | | | | | region | Phone: | Phone: | | | | | without | [phone] | [phone] | | | | | myelopathy | Fax: | Fax: | | | | | or | [phone] | [phone] | | | | | radiculopath | [...] | | back pain | [place], | [address] Phone: | | | | | | [place] [address] | [phone] | | | | | | Phone: | Fax: | | | | | | [phone] | [phone] | | | | | | Fax: | | | | | | | [phone] | | +--------+--------+ + + + + [...] thoracic back pain | | | | [place], | [address] [place], | (Primary Dx); | | | | [place] [address] | [place] [address] | Spondylosis of | | | | [phone] | [phone] | cervical region | | | | [...] 2) Try Lidocaine patch, can get from [employer] or [employer] 3) Massage therapy/physical therapy at [facility] 4) I will call you with image [...] o n the RaNITidine HCl (RANITIDINE ACID RUBBER BELT SPLICER PO) Take 1 tablet by mouth Daily. [...] has no apparent deficits with short or director long term care memory. 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
--- OUTSIDE RECORDS SUMMARY | ~2019-04-12 | XMS | Encounter Summary ---
Demographics + + + | Address | [address] | | | [place] [address] | + + + | Home Phone [...] | [facility] | | | and [place] | + + + | Organization | [facility] [...] [place] | | | | | [place] [address] | | + + + + + | Hunter Jackson | ECON | [place] | | + + + + + | Wes Jackson | ECON | [place], [place] | | + + + + + | Oziel Jackson | ECON | [place], [place] | | + + + + + Care Team Providers + +------+ + | Care Plumber Pipe Fitting Name | Role | Phone | + [...] | JOSE ALBERTO Linder | [address] [place] | | | | | ia, mixed | [address] | [place], | | | | | Chest pain, | [place] | [place] | | | | | unspecified | [place], | [address] | | | | | type | [place] | Phone: | | | | | Procedures | [address] | [phone] | | | | | [place] Nuclear | Phone: | Fax: | | | | | Stress Test | [phone] | [phone] | | | | | (Vasodilator | Fax: | | | | | | ) CHG | [phone] | | | | | | MYOCARDIAL [...] + + | 07/16/ | Hospital | [facility] | Yesi, | | | 2017 | Encounter | MED CTR NUCLEAR | JOSE ALBERTO Linder [address] | | | | | MEDICINE [address] | [place], | | | | | [place], | [place] [address] | | | | | [place] [address] | [phone] | | | | | [phone] | | | +--------+ + + + [...] | | | | 7 | | VETERINARY MEDICINE DOCTOR PO) | | | | | | [...] STREETER | | | | | | [address] | | | | | | | | +--------+---------+ + + + | 11/21/ | Office | Cardiology | Yesi, | | | 2019 | Visit | | JOSE ALBERTO Linder [address] | | | | | | [place], | | | | | | [place] [address] | | | | | | [phone] | | | | | | | [...]
--- OUTSIDE RECORDS SUMMARY | ~2019-04-12 | XMS | Encounter Summary ---
Demographics + + + | Address | [address] | | | [place] [address] | + + + | Home Phone [...] | Author | [facility] | | | and [place] | + + + | Organization | [facility] | | | and [place] | + + + | Address | Unknown | + + + | Phone | Unavailable | + + + Support + + + + + | Name | Relationship | Address | Phone | + + + + + | Osmin Jackson | ECON | [address] | | | | | [place] [address] | | + + + + + | Hunter Jackson | ECON | [place] | | + + + + + | Wes Jackson | ECON | [place], [place] | | + + + + + | Oziel Jackson | ECON | [place], [place] | | + + + + + Care Team Providers + +------+ + | Care Camera Prototyping Engineer Name | Role | Phone | + +------+ + | Rodolfo Cruz MD | PCP | | + +------+ + Reason for Visit + + + | Reason | Comments | + + + | Records Request | ER visit 10-31-2015 at [facility] | + + + Encounter Details [...] visit 10-31-2015 at | | | | [facility] | [place], [place] | [facility] | | | | [place] [address] | [address] | ) | | | | [phone] | | | +--------+ + + + [...] STREETER | | | | | | [address] | | | | | | | | +--------+---------+ + + + | 11/21/ | Office | Cardiology | Yesi, | | | 2020 | Visit | | JOSE ALBERTO Linder [address] | | | | | | [place], | | | | | | [place] [address] | | | | | | [phone] | | | | | | | | +--------+---------+ + + + documented as of this encounter Visit Diagnoses Not on filedocumented in this encounter"
--- OUTSIDE RECORDS SUMMARY | ~2019-04-12 | XMS | Encounter Summary ---
Demographics + + + | Address | [address] | | | [place] [address] | + + + | Home Phone [...] + | Author | [facility] | | | and [place] | + + + | Organization | [facility] | | [...] | | | | | [place] [address] | | + + + + + | Hunter Jackson | ECON | [place] | | + + + + + | Wes Jackson | ECON | [place], [place] | | + + + + + | Oziel Jackson | ECON | [place], [place] | | + + + + + Care Team Providers + +------+ + | Care Coding Technician Name | Role | Phone | [...] + + | 01/03/ | Office | [facility] INTER[facility] | Rodolfo Cruz, | Urticaria, chronic | | 2016 | Visit | MEDICINE [facility] [address] | [address] | (Primary Dx) | | | | [address] [place] | [place] | | | | | [place] [address] | [address] | | | | | [phone] | | | +--------+---------+ + + + [...] [place] | | | | | | [address] | | | | | | | | +--------+---------+ + + + | 11/21/ | Office | Cardiology | Yesi, | | | 2019 | Visit | | JOSE ALBERTO Linder [address] | | | | | | [place], | | | | | | [place] [address] | | | | | | [phone] | | | | | | | [...] [place] | | | | | | [address] | | | | + + + [...] PAML | [address] | [place] [address] | [phone] | + + + + + DNA [...] | | | | | [place] [address] | | | | + + + [...] [address] | [place] [address] | [phone] | + + + + + CBC [...] [address] | [place] | [phone] | | [facility] | | [address] | | | - LABORATORY | | | | + + + + + documented in this encounter Visit Diagnoses + + | Diagnosis | + + | Urticaria, chronic - Primary Other specified urticaria | + + documented in this encounter"
--- OUTSIDE RECORDS SUMMARY | ~2019-04-12 | XMS | Encounter Summary ---
Demographics + + + | Address | [address] | | | [place] [address] | + + + | Home Phone [...] + | Author | [facility] | | | and [place] | + + + | Organization | [facility] | [...] | | | | | [place] [address] | | + + + + + | Hunter Jackson | ECON | [place] | | + + + + + | Wes Jackson | ECON | [place], [place] | | + + + + + | Oziel Jackson | ECON | [place], [place] | | + + + + + Care Team Providers + +------+ + | Care Slicing Machine Feeder Name | Role | Phone [...] + + | 03/15/ | Office | [facility] | Rodolfo Cruz, | Upper respiratory | | 2015 | Visit | MEDICINE [employer] [address] | [address] | tract infection, | | | | Street [place] | [place], [place] | unspecified upper | | | | [place] [address] | [address] | respiratory | | | | [phone] | | infection (Primary | | | [...] W | | | | | | [place], | | | | | | [place] [address] | | | | | | [phone] | | | | | | | [...]
--- OUTSIDE RECORDS SUMMARY | ~2019-04-12 | XMS | Encounter Summary ---
Demographics + + + | Address | [address] | | | [place] [address] | + + + | Home Phone [...] Author | [facility] | | | and [place] | + + + | Organization | [facility] | | [...] [place] | | | | | [place] [address] | | + + + + + | Hunter Jackson | ECON | [place] | | + + + + + | Wes Jackson | ECON | [place], [place] | | + + + + + | Oziel Jackson | ECON | [place], [place] | | + + + + + Care Team Providers + +------+ + | Care Arc Cutter Name | Role | Phone | + +------+ + | Gunderson, Kellie PA | PCP | | + +------+ + Encounter Details +--------+ + + + + | Date | Type | Department | Care Team | Description | +--------+ + + + + | 05/09/ | Imaging | [facility] | Provider, | | | 2016 | Exam | MED CTR EXTERNAL | [address] | | | | | IMAGING | [address] | | | | | [phone] | [place] [address] | | +--------+ + + + + [...] STREETER | | | | | | [address] | | | | | | | | +--------+---------+ + + + | 11/21/ | Office | Cardiology | Yesi, | | | 2019 | Visit | | JOSE ALBERTO Linder [address] | | | | | | [place], | | | | | | [place] [address] | | | | | | [phone] | | | | | | | [...]
--- OUTSIDE RECORDS SUMMARY | ~2019-04-12 | XMS | Encounter Summary ---
Demographics + + + | Address | [address] | | | [place] [address] | + + + | Home Phone [...] | Author | [facility] | | | and [place] | + + + | Organization | [facility] [...] [place] | | | | | [place] [address] | | + + + + + | Hunter Jackson | ECON | [place] | | + + + + + | Wes Jackson | ECON | [place], [place] | | + + + + + | Oziel Jackson | ECON | [place], [place] | | + + + + + Care Team Providers + +------+ + | Care Poultry Boner Name | Role | Phone | + [...] + + | 07/29/ | Telephone | [facility] [place] | Yany, | Other | | 2016 | | PHYSIATRY [address] | [address] | | | | | [place], | [facility], | | | | | [place] [address] | [place] [address] | | | | | [phone] | [phone] | | | | | | | [...] STREETER | | | | | | [address] | | | | | | | | +--------+---------+ + + + | 11/21/ | Office | Cardiology | Yesi | | | 2019 | Visit | | JOSE ALBERTO Linder [address] | | | | | | [place] | | | | | | [place] [address] | | | | | | [phone] | | | | | | | | +--------+---------+ + + + documented as of this encounter Visit Diagnoses Not on filedocumented in this encounter"
--- OUTSIDE RECORDS SUMMARY | ~2019-04-12 | XMS | Encounter Summary ---
Demographics + + + | Address | [address] | | | [place] [address] | + + + | Home Phone [...] | Author | [facility] | | | and [place] | + + + | Organization | [facility] [...] | | | | | [place] [address] | | + + + + + | Hunter Jackson | ECON | [place] | | + + + + + | Wes Jackson | ECON | [place], [place] | | + + + + + | Oziel Jackson | ECON | [place], [place] | | + + + + + Care Team Providers + +------+ + | Care Staging Technician Name | Role | Phone | [...] | 01/26/ | Refill | [facility] | Rodolfo Curz, | Medication Refill | | 2016 | | MEDICINE [address] | [address] | | | | | [place] | [place] | | | | | [place] [address] | [address] | | | | | [phone] | | | +--------+--------+ + + + [...] | | | | | | [place] [address] | | | | | | [phone] | | | | | | | | +--------+---------+ + + + documented as of this encounter Visit Diagnoses Not on filedocumented in this encounter"
--- OUTSIDE RECORDS SUMMARY | ~2019-04-12 | XMS | Encounter Summary ---
Demographics + + + | Address | [address] | | | [place] [address] | + + + | Home Phone [...] | [facility] | | | and [place] | + + + | Organization | [facility] [...] | | | | | [place] [address] | | + + + + + | Hunter Jackson | ECON | [place] | | + + + + + | Wes Jackson | ECON | [place], [place] | | + + + + + | Oziel Jackson | ECON | [place], [place] | | + + + + + Care Team Providers + +------+ + | Care Research Animal Facility Supervisor Name | Role | Phone | [...] [place], | | | | | | [address] | [place] [address] | | | | | | Phone: | Phone: | | | | | | [phone] | [phone] | | | | | | Fax: | Fax: | | | | | | [phone] | [phone] | +--------+ + + + + + Encounter Details +--------+---------+ + + + | Date | Type | Department | Care Team | Description | +--------+---------+ + + + | 03/25/ | Office | [facility] | Zion Davis MD | Meniere's disease, | | 2011 | Visit | OTOLARYNGOLOGY [address] | [address] | unspecified (Primary | | | | [address] | [address] [place], | Dx); Mixed hearing | | | | [place] | [place] [address] | loss, unilateral | | | | [address] | [phone] | | | | | [phone] | | | +--------+---------+ + + + [...] MD - 03/25/2012 1:21 PM PSTSee dictation #[id number] signed by José Luis Davis MD at [...] | | | | | | [place] [address] | | | | | | [phone] | | | | | | | | +--------+---------+ + + + documented as of this encounter Visit Diagnoses + + | Diagnosis | + + | Meniere's disease, unspecified - Primary | + + | Mixed hearing loss, unilateral | + + documented in this encounter
--- OUTSIDE RECORDS SUMMARY | ~2019-04-12 | XMS | Encounter Summary ---
Demographics + + + | Address | [address] | | | [place] [address] | + + + | Home Phone [...] Author | [facility] | | | and [place] | + + + | Organization | [facility] [...] | | | | | [place] [address] | | + + + + + | Hunter Jackson | ECON | [place] | | + + + + + | Wes Jackson | ECON | [place], [place] | | + + + + + | Oziel Jackson | ECON | [place], [place] | | + + + + + Care Team Providers + +------+ + | Care Industrial/Organizational Psychologist Name | Role | Phone | + [...] starting the new | | | | [place], | [place], | medication) | | | | [place] [address] | [place] [address] | | | | | [phone] | | | | | | | [...] STREETER | | | | | | [address] | | | | | | | | +--------+---------+ + + + | 11/21/ | Office | Cardiology | Yesi, | | | 2019 | Visit | | JOSE ALBERTO Linder [address] | | | | | | [place], | | | | | | [place] [address] | | | | | | [phone] | | | | | | | | +--------+---------+ + + + documented as of this encounter Visit Diagnoses Not on filedocumented in this encounter"
--- OUTSIDE RECORDS SUMMARY | ~2019-04-12 | XMS | Encounter Summary ---
Demographics + + + | Address | [address] | | | [place] [address] | + + + | Home Phone [...] | Author | [facility] | | | and [place] | + + + | Organization | [facility] | [...] | | | | | [place] [address] | | + + + + + | Hunter Jackson | ECON | [place] | | + + + + + | Wes Jackson | ECON | [place], [place] | | + + + + + | Oziel Jackson | ECON | [place], [place] | | + + + + + Care Team Providers + +------+ + | Care Hand Thermal Cutter Name | Role | Phone | [...] + | 03/16/ | Telephone | [facility] | Rodolfo Cruz, | Results | | 2014 | | MEDICINE [facility] [address] | [address] | | | | | [place] | [place] [address] | | | | | [place] [address] | [address] | | | | | [phone] | | | +--------+ + + + [...] | | | | | | [place] [address] | | | | | | [phone] | | | | | | | | +--------+---------+ + + + documented as of this encounter Visit Diagnoses Not on filedocumented in this encounter"
--- OUTSIDE RECORDS SUMMARY | ~2019-04-12 | XMS | Encounter Summary ---
Demographics + + + | Address | [address] | | | [place] [address] | + + + | Home Phone [...] | [facility] | | | and [place]ana | + + + | Organization | [facility] | | | [...] | | | | | [place] [address] | | + + + + + | Hunter Jackson | ECON | [place] | | + + + + + | Wes Jackson | ECON | [place], [place] | | + + + + + | Oziel Jackson | ECON | [place], [place] | | + + + + + Care Team Providers + +------+ + | Care Bryologist Name | Role | Phone | + [...] | Visit | ORTHOPEDIC SURGERY | [address] [facility] | syndrome, right | | | | [address] [facility] | [place] [address] | (Primary Dx); [facility] | | | | [place] | [address] | arthritis | | | | [address] | | | | | | [phone] | | | +--------+---------+ + + + [...] [place] | | | | | | [address] | | | | | | | | +--------+---------+ + + + | 11/21/ | Office | Cardiology | Yesi, | | | 2019 | Visit | | JOSE ALBERTO Linder [address] | | | | | | [place], | | | | | | [place] [address] | | | | | | [phone] | | | | | | | [...] PST | | | | | ONCE, [facility] 06/06/16 at 1145, For 1 | | | | | | | dose, Shake well. Not for IV | | | | | | | use., | | | | | | + +-------+ +-------+---+ + +---+---+ | | | +---+---+ documented in this encounter"
--- OUTSIDE RECORDS SUMMARY | ~2019-04-12 | XMS | Encounter Summary ---
Demographics + + + | Address | [address] | | | [place] [address] | + + + | Home Phone [...] [facility] | | | and [place] | + + + | Organization | [facility] [...] [place] | | | | | [place] [address] | | + + + + + | Hunter Jackson | ECON | [place] | | + + + + + | Wes Jackson | ECON | [place], [place] | | + + + + + | Oziel Jackson | ECON | [place], [place] | | + + + + + Care Team Providers + +------+ + | Care Requirements Engineer Name | Role | Phone | [...] + + | 07/02/ | Office | [facility] | Braulio León | Psychophysiologic | | 2018 | Visit | SLEEP DISORDER [address] | [address] | insomnia (Primary | | | | [address] [place] | [address] [place] | Dx) | | | | [place] [address] | [place] [address] | | | | | [phone] | [phone] | | | | | | | [...] | | | | | | [place] [address] | | | | | | [phone] | | | | | | | | +--------+---------+ + + + documented as of this encounter Visit Diagnoses + + | Diagnosis | + + | 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
--- OUTSIDE RECORDS SUMMARY | ~2019-04-12 | XMS | Encounter Summary ---
Demographics + + + | Address | [address] | | | [place] [address] | + + + | Home Phone [...] | Author | [facility] | | | and hOana | + + + | Organization | [facility] | [...] | | | | | [place] [address] | | + + + + + | Hunter Jackson | ECON | [place] | | + + + + + | Wes Jackson | ECON | [place], [place] | | + + + + + | Oziel Jackson | ECON | [place], [place] | | + + + + + Care Team Providers + +------+ + | Care Outcomes Manager Name | Role | Phone | [...] Refill | | 2016 | | MEDICINE [facility] | | | | | | [address] | | | | | | [place] [address] | | | | | | [phone] | | | +--------+ + + + [...] STREETER | | | | | | [address] | | | | | | | | +--------+---------+ + + + | 11/21/ | Office | Cardiology | Yesi, | | | 2019 | Visit | | JOSE ALBERTO Linder [address] | | | | | | [address] [place] | | | | | | [place] [address] | | | | | | [phone] | | | | | | | | +--------+---------+ + + + documented as of this encounter Visit Diagnoses Not on filedocumented in this encounter"
--- OUTSIDE RECORDS SUMMARY | ~2019-04-12 | XMS | Encounter Summary ---
Demographics + + + | Address | [address] | | | [place] [address] | + + + | Home Phone [...] | Author | [facility] | | | and Ohana | + + + | Organization | [facility] [...] | | | | | [place] [address] | | + + + + + | Hunter Jackson | ECON | [place] | | + + + + + | Wes Jackson | ECON | [place], [place] | | + + + + + | Oziel Jackson | ECON | [place], [place] | | + + + + + Care Team Providers + +------+ + | Care Shed Boss Name | Role | Phone | [...] | 01/10/ | Refill | [facility] | Yesi, | Medication Refill | | 2015 | | CARDIOLOGY [address] | JOSE ALBERTO [address]inder [address] | | | | | [place], | [place], | | | | | [place] [address] | [place] [address] | | | | | [phone] | [phone] | | | | | | | [...] STREETER | | | | | | [address] | | | | | | | | +--------+---------+ + + + | 11/21/ | Office | Cardiology | Yesi, | | | 2019 | Visit | | JOSE ALBERTO [address] | | | | | | [address] | | | | | | [place] [address] | | | | | | [phone] | | | | | | | | +--------+---------+ + + + documented as of this encounter Visit Diagnoses Not on filedocumented in this encounter"
--- OUTSIDE RECORDS SUMMARY | ~2019-04-12 | XMS | Encounter Summary ---
Demographics + + + | Address | [address] | | | [place] [address] | + + + | Home Phone [...] Author | [facility] | | | and Ohana | + + + | Organization | [facility] [...] | | | | | [place] [address] | | + + + + + | Hunter Jackson | ECON | [place] | | + + + + + | Wes Jackson | ECON | [place], [place] | | + + + + + | Oziel Jackson | ECON | [place], [place] | | + + + + + Care Team Providers + +------+ + | Care Millwright Helper Name | Role | Phone | [...] + + | 05/25/ | Office | [facility] [place] | Ulysses Jensen, | Osteoarthritis of | | 2016 | Visit | ORTHOPEDIC SURGERY | [address] | first | | | | [address] [facility] | [place] [address] | carpometacarpal | | | | [place] | [address] | (CMC) joint of one | | | | [address] | | hand (Primary Dx); | | | | [phone] | | Rotator cuff | | | [...] [place] | | | | | | [address] | | | | | | | | +--------+---------+ + + + | 11/21/ | Office | Cardiology | Yesi, | | | 2019 | Visit | | JOSE ALBERTO Linder [address] | | | | | | [place] [place], | | | | | | [place] [address] | | | | | | [phone] | | | | | | | [...]
--- OUTSIDE RECORDS SUMMARY | ~2019-04-12 | XMS | Encounter Summary ---
Demographics + + + | Address | [address] | | | [place] [address] | + + + | Home Phone [...] | Author | [facility] | | | and [place] | + + + | Organization | [facility] [...] | | | | | [place] [address] | | + + + + + | Hunter Jackson | ECON | [place] | | + + + + + | Wes Jackson | ECON | [place], [place] | | + + + + + | Oziel Jackson | ECON | [place], [place] | | + + + + + Care Team Providers + +------+ + | Care Broiler Supervisor Name | Role | Phone | [...] + + | 03/31/ | Telephone | [facility] | Rodolfo Cruz, | Results | | 2014 | | MEDICINE [facility] | MD [address] | | | | | [address] | [place] | | | | | [place] [address] | [address] | | | | | [phone] | | | +--------+ + + + [...] | | | | | | [place] [address] | | | | | | [phone] | | | | | | | | +--------+---------+ + + + documented as of this encounter Visit Diagnoses Not on filedocumented in this encounter"
--- OUTSIDE RECORDS SUMMARY | ~2019-04-12 | XMS | Encounter Summary ---
Demographics + + + | Address | [address] | | | [place] [address] | + + + | Home Phone [...] | Author | [facility] | | | and [place] | + + + | Organization | [facility] | [...] | | | | | [place] [address] | | + + + + + | Hunter Jackson | ECON | [place] | | + + + + + | Wes Jackson | ECON | [place], [place] | | + + + + + | Oziel Jackson | ECON | [place], [place] | | + + + + + Care Team Providers + +------+ + | Care Circle Edger Name | Role | Phone | + [...] | Back pain | | [address] | | | | | Hypothyroidi | | [place], | | | | | sm | | [place] | | | | | Hypertension | | [address] | | | | | Asthma GI | | Phone: | | | | | bleed | | [phone] | | | | | Troponin | | Fax: | | | | | level | | [phone] | | | | | elevated | [...] + + | 11/04/ | Surgery | [facility] | Samm Pandya, | EGD IP 449 | | 2013 | | MED CTR MP INTRA OP | MD [address] | | | | | [address] | [address], | | | | | [place] | [place] [address] | | | | | [address] | [phone] | | | | | [phone] | | | +--------+---------+ + + + [...] might be different fro m the original. [facility] DISCHARGE SUMMARY Pt. Name/Age/: Soumya Jackson 78 y.o. 1935 Date of Admission: 11/03/2013 Date of Discharge: 11/05/2013 Admitting Physician: Yoel Carranaz MD Primary Care Provider: Rodolfo Cruz Discharging Physician: Yoel Carranza MD DISCHARGE DIAGNOSES: Active Hospital Problems Diagnosis GI bleed Hypertension GERD Anemia due to blood loss, acute Troponin I above reference range Lytic lesion of bone on x-ray DJD (degenerative joint disease) Hypothyroidism Lacunar infarction (HCC) Valvular heart disease Resolved Hospital Problems Diagnosis No resolved problems to display. 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 [DISCONTINUED] [facility] GARLIC OIL PO CAPS Take 1250 mg by mouth daily. [DISCONTINUED] diclofenac (VOLTAREN) 75 mg EC tablet TAKE ONE TABLET BY MOUTH TWICE A D AY 180 tablet 1 [DISCONTINUED] Gionkbqgenm-Pggidywwl-Dbr C-Mn ([facility] GLUCOSAMINE-CHONDROITIN) TABS Take 1 tablet by mouth 2 times daily. [DISCONTINUED] KRILL OIL 1000 MG CAPS Take 1,000 mg by mouth Daily. [DISCONTINUED] metaxalone (SKELAXIN) 800 mg tablet Take 800 mg by mouth 3 times daily. Unchanged FIELD PRODUCER meds that are or will be resumed [...] medication here given her anemia when in [facility] G[facility] By history Anemia due to blood loss, acute From GI bleeding. Got total 4 PRBC Troponin I above reference range EKG without ischemia. Mild troponin leak but well below threshold for DE. Echo EF 63%, no sig change versus [...] Mamogram and UPEP and Stress Test with sales performance analyst OK to restart baby ASA NOT restart [...] your friday appt) Contact information: [address] [facility] [id number] Follow up with JOSE ALBERTO Marcelo. (Have Dr Cruz arrange an appt to see her in about a month from now) Contact information: [place] [id number] Condition: Patient being discharged with condition improved Dr Pandya recommends double dose of PPI for 1 month then single dose Thus Prilosec 20 mg bid X 1 month then can lower to 20 mg daily Diet: Regular Greater than 30 minutes were spent on discharge and coordination of post-hospital care. Electronically signed by: Yoel Carranza MD, 11/05/2013 13:26 [facility] Portions of this chart may have been created with Youku voice recognition software. Occasi onal wrong-word or [...] might be different fro m the original. [facility] PROGRESS NOTE Patient: Soumya Jackson : 1935: Age: 78 y.o. MedRec: [id number] Admission date: 11/03/2013 Hospital day # : [...] -- No results found for this basename: PHART:3,PO2ART:3,ZKK9EVA:3,ISO4VWL:3,BEART:3,T8WLMNFI:3 in the last 168 hours No results found for this basename: SPECSOURCE:3,PHPOCB:3,GMQUF9PL:3,OSEL4TB:3,HCO3:3,TCO2: 3,BEART:3,BE:3,DWHN0DJH:3 in the last 168 hours Point of [...] troponin leak but well below threshold for DE. Echo EF 63%, no sig change versus [...] Mamogram and UPEP and Stress Test with sales performance analyst OK to restart baby ASA NOT restart Voltaren Advise appt with Merissa in GI clinic in about 1 month. Yoel Carranza MD 11/05/2013 13:14 [facility] Dot phrase reference: VSHOSP (VS in table, last 24 hours) MEYLAB (various labs to pull in) DT (date and time) LABRCNTIP[K:3,Na:3 (last 3 sets of labs using potassium and sodium as examples) HGB HCT PLT INR GLU POCGLU Na K BUN CREA, CALCIUM TROPONINI BNP DIGOXIN DDIMERQUANT Portions of this chart may have been created with Youku voice recognition software. Occasi onal wrong-word or [...] 1 unit of PRBC transfused without reaction. [place] 1 tab given for lower back pain w ith good relief of pain. No active bleeding noted. Rodolfo Nicholas RRT - 11/04/2013 9:15 AM PDTPt not in roomEle ctronically signed by Rodolfo Montes RRT at 11/04/2013 2:44 PM Yoel Plaza MD - 7:17 AM PDT [facility] PROGRESS NOTE Patient: Soumya Jackson : 1935: Age: 78 y.o. MedRec: [id number] Admission date: 11/03/2013 Hospital day # : [...] -- No results found for this basename: PHART:3,PO2ART:3,ONF9WXN:3,KVD8KJF:3,BEART:3,U9UBSXBI:3 in the last 168 hours No results found for this basename: SPECSOURCE:3,PHPOCB:3,UOUGG6XG:3,YAYZ0FG:3,HCO3:3,TCO2: 3,BEART:3,BE:3,CCNR6VDX:3 in the last 168 hours Point of [...] troponin leak but well below threshold for DE. Echo EF 63%, no sig change versus [...] OK Bone Scan tomorrow (maybe) trace from [facility] Discussed mild trop leak and consideration for outpatient Currently wearing her SCDs Dr Pandya said I could start low dose ASA and I told patient will start tomorrow (I will mary it labs though) Yoel Carranza MD 11/04/2013 7:17 [facility] Dot phrase reference: VSHOSP (VS in table, last 24 hours) MEYLAB (various labs to pull in) DT (date and time) LABRCNTIP[K:3,Na:3 (last 3 sets of labs using potassium and sodium as examples) HGB HCT PLT INR GLU POCGLU Na K BUN CREA, CALCIUM TROPONINI BNP DIGOXIN DDIMERQUANT Portions of this chart may have been created with Youku voice recognition software. Occasi onal wrong-word or [...] | | | | | | [place] [address] | | | | | | [phone] | | | | | | | [...] + | MISCELLANEOUS LAB | | | [phone] | + +---------+ + + | MISCELANIOUS LAB | | | [phone] | + +---------+ + + CBC with [...] + | [facility] | [address] | [place] | [phone] | | [facility] | | [address] | | | - LABORATORY | | | | + + + + + | [facility] | [address] | [place] | | | [facility] | | [address] | | | - LABORATORY | | [...] | 0.64 | 0.60 - 1.30 | [facility] | | | | | mg/dL | [facility] | | | | | | MEDICAL | | | | | | CENTER - | | | | | | LABORATORY | | + + + + + + | eGFR if not | >60Comment: GLOMERULAR | >=60 | [facility] | | | | FILTRATION | mL/min/1.73m2 | [facility] | | | [place] | RATE,ESTIMATED | | MEDICAL | | | | mL/min/1.01y8Ylil than | | CENTER - | | [...] | 8.7 | 8.3 - 10.5 | [facility] | | | | | mg/dL | [facility] | | | | | | MEDICAL | | | | | | CENTER - | | | | | | LABORATORY | | + + + + + + | BUN/Creatin | 9.4 | | [facility] | | | ine Ratio | | | [facility] | | | | | | [...] [address] | [place] | [phone] | | [facility] | | [address] | | | - LABORATORY | | | | + + + + + | [facility] | [address] | [place] | | | [facility] | | [address] | | | - LABORATORY | | [...] + + + | UNIT # | [id number] | | [facility] | | | | [...] St | [place] | | | [facility] | | [address] | | | - BLOOD BANK | [...] + | [facility] | [address] | [place], [place] | [phone] | | [facility] | | [address] | | | - LABORATORY | | | | + + + + + | [facility] | [address] | [place], [place] | | | [facility] | | [address] | | | - LABORATORY | | [...] + + + | UNIT # | [id number] | | [facility] | | | | [...] St | [place] | | | [facility] | | [address] | | | - BLOOD BANK | | | | + + + + + EGD (11/04/2013 8:39 AM PDT) + + | Specimen | + + | | + + + + -+ | Narrative | Performed At | + + -+ | | [facility] | | GastroenterologyPatient Name: Soumya Grimes Date: 11/04/2013 8:39 | [facility] | | AMN: [id number] #: [id number] of : 8Admit | | | Type: InpatientAge: 78Room: [facility] 02Gender: FemaleNote Status: | | | [...] nurse | | | and the electrical technician instructor in the 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 Mental Status | [...] | 0Note Initiated On: 11/04/2013 8:39 AM [facility] | | | [facility], [address] [place] [address] | | | [phone] | | | - Non-bleeding erosive gastropathy. [...] | | [facility], [address], [place] | | | [address] | | + + -+ + + | Transcriptions | + + | Laura Gerenwoodor - 11/04/2013 12:00 AM PDT | + [...] + + + | UNIT # | [id number] | | [facility] | | | | [...] St | [place] | | | [facility] | | [address] | | | - BLOOD BANK | [...] + | [facility] | [address] | [place] | [phone] | | [facility] | | [address] | | | - LABORATORY | | | | + + + + + | [facility] | [address] | [place] | | | [facility] | | [address] | | | - LABORATORY | | [address] | [place] | [phone] | | [facility] | | [address] | | | - LABORATORY | | | | + + + + + | [facility] | [address] | [place] | | | [facility] | | [address] | | | - LABORATORY | | [...] + | [facility] | [address] | [place] | [phone] | | [facility] | | [address] | | | - LABORATORY | | | | + + + + + | [facility] | [address] | [place] | | | [facility] | | [address] | | | - LABORATORY | | [...] | | FILTRATION | mL/min/1.73m2 | [facility] | | | [place] | RATE,ESTIMATED | | MEDICAL | | | | mL/min/1.82i5Domg than | | CENTER - | | [...] [address] | [place] | [phone] | | [facility] | | [address] | | | - LABORATORY | | | | + + + + + | [facility] | [address] | [place] | | | [facility] | | [address] | | | - LABORATORY | | [...] + + + | UNIT # | [id number] | | [facility] | | | | [...] St | [place] | | | [facility] | | [address] | | | - BLOOD BANK | [...] + | [facility] | [address] | [place], [place] | [phone] | | [facility] | | [address] | | | - LABORATORY | | | | + + + + + | [facility] | [address] | [place], [place] | | | [facility] | | [address] | | | - LABORATORY | | [...] | | | | | | [employer] | | | | | [...] [address] | [place] | [phone] | | [facility] | | [address] | | | - LABORATORY | | | | + + + + + | [facility] | [address] | [place] | | | [facility] | | [address] | | | - LABORATORY | | [...] [address] | [place] | [phone] | | [facility] | | [address] | | | - LABORATORY | | | | + + + + + | [facility] | [address] | [place] | | | [facility] | | [address] | | | - LABORATORY | | [...] | | | | | | [employer] | | | | | [...] Performing | Address | City/State[facility] | Phone Number | | Organization | | | | + + + + + | [facility] | [address] | [place] | [phone] | | [facility] | | [address] | | | - LABORATORY | | | | + + + + + | [facility] | [address] | [place] | | | [facility] | | [address] | | | - LABORATORY | | [...] [address] | [place] | [phone] | | [facility] | | [address] | | | - LABORATORY | | | | + + + + + | [facility] | [address] | [place] | | | [facility] | | [address] | | | - LABORATORY | | [...] | | | | | | [facility] | | | | | | MEDICAL [...] + | [facility] | [address] | [place] | [phone] | | [facility] | | [address] | | | - LABORATORY | | | | + + + + + | [facility] | [address] | [place] | | | [facility] | | [address] | | | - LABORATORY | | | | + + + + + Troponin I (11/03/2013 1:15 PM PDT) + + + + + + | Component | Value | Ref Range | Performed | Pathologist | | | | | At | Signature | + + + + + + | Troponin I | 0.07 (H)Comment: | <0.06 ng/mL | [facility] | | | | Reference | [...] | | | | | | [employer] | | | | | [...] + | [facility] | [address] | [place] | [phone] | | [facility] | | [address] | | | - LABORATORY | | | | + + + + + | [facility] | [address] | [place] | | | [facility] | | [address] | | [...] + | [facility] | [address] | [place], [place] | [phone] | | [facility] | | [address] | | | - LABORATORY | | | | + + + + + | [facility] | [address] | [place], [place] | | | [facility] | | [address] | | | - LABORATORY | | | | + + + + + ECHO Complete (11/03/2013 12:00 PM PDT) + + | Specimen | + + | | + + + + + | Narrative | Performed At | + + + | [facility] ECHOCARDIOGRAM REPORT | | | STUDY DATE: [...] Carito Maher MD PhD | | | [facility] 11/03/2013 12:17 Applications Systems Engineer: Merlin Dolan, | | | RDMS | | + + + + + | Procedure Note | + + | Ric Maher MD - 11/03/2013 6:59 PM [facility] | | CENTERECHOCARDIOGRAM REPORTSTUDY DATE: 11/03/2013PATIENT NAME: Soumya Daniels: | | 1935MRN: [id number]: Rodolfo Cruz [facility]DIAGNOSIS: Elevated | | troponinA transthoracic echocardiogram [...] PP mmHgLA volume: 54 mLLA index: 28 mL/z8Nckokr Inflow DT: | | 284 msIVRT: 88 msValsalva: Not neededPWDTI S wave: 8.0 cm/sPWDTI E wave: 6.8 | | cm/sPWDTI A wave: 14.8 cm/sE/A Ratio: 0.46E/E Ratio: 19.52Signed by: Carito Solorio | | MD Nika PhD FACC 11/03/2013 12:17 Applications Systems Engineer: Merlin Dolan RDMS | |Tricuspid valve: normal [...] | |Signed by: Carito Maher MD PhD [facility] | | 11/03/2013 12:17 | | | | | |Applications Systems Engineer: Merlin Dolan RDMS | + + Protein [...] + | [facility] | [address] | [place], [place] | [phone] | | [facility] | | [address] | | | - LABORATORY | | | | + + + + + | [facility] | [address] | [place], [place] | | | [facility] | | [address] | | | - LABORATORY | | [...] | 1.015 | | | | | [place], | | | | | | UA, [...] + | [facility] | [address] | [place], [place] | | | [facility] | | [address] | | | - BLOOD BANK | [...] + | MISCELLANEOUS LAB | | | [phone] | + +---------+ + + | MISCELANIOUS LAB | | | [phone] | + +---------+ + + Troponin I [...] | | | | | | [employer] | | | | | [...] + | [facility] | [address] | [place] | [phone] | | [facility] | | [address] | | | - LABORATORY | | | | + + + + + | [facility] | [address] | [place] | | | [facility] | | [address] | | | - LABORATORY | | [...] mL/min/1.73m2 | [facility] | | | [place] | RATE,ESTIMATED | | MEDICAL | | | | mL/min/1.06n1Pths than | | CENTER - | | [address] | [place] | [phone] | | [facility] | | [address] | | | - LABORATORY | | | | + + + + + | [facility] | [address] | [place] | | | [facility] | | [address] | | | - LABORATORY | | [...] | + + + + + | [facility] | [address] | [place], [place] | [phone] | | [facility] | | [address] | | | - LABORATORY | | | | + + + + + | [facility] | [address] | [place], [place] | | | [facility] | | [address] | | | - LABORATORY | | | | + + + + + documented in this encounter Visit Diagnoses + + | Diagnosis | + + | GI bleed Hemorrhage of gastrointestinal tract, unspecified | + + documented in this encounter
--- OUTSIDE RECORDS SUMMARY | ~2019-04-12 | XMS | Encounter Summary ---
Demographics + + + | Address | [address] | | | [place] [address] | + + + | Home Phone [...] Author | [facility] | | | and [place] | + + + | Organization | [facility] [...] | | | | | [place] [address] | | + + + + + | Hunter Jackson | ECON | [place] | | + + + + + | Wes Jackson | ECON | [place], [place] | | + + + + + | Oziel Jackson | ECON | [place], [place] | | + + + + + Care Team Providers + +------+ + | Care Wares Sorter Name | Role | Phone | + +------+ + PCP | Unavailable | + +------+ + Encounter Details +--------+ + + + + | Date | Type | Department | Care Team | Description | +--------+ + + + + | 03/28/ | Hospital | [facility] | | | | 2009 | Encounter | MED CTR GENERIC OP | | | | | | CONV DEPT [address] | | | | | | [address] [place], | | | | | | [place] [address] | | | | | | [phone] | | | +--------+ + + + [...] | | | | | | [place] [address] | | | | | | [phone] | | | | | | | | +--------+---------+ + + + documented as of this encounter Visit Diagnoses Not on filedocumented in this encounter"
--- OUTSIDE RECORDS SUMMARY | ~2019-04-12 | XMS | Encounter Summary ---
Demographics + + + | Address | [address] | | | [place] [address] | + + + | Home Phone [...] | Author | [facility] | | | and Ohana | + + + | Organization | [facility] [...] | | | | | [place] [address] | | + + + + + | Gisele Jackson | ECON | [place] | | + + + + + | Wes Jackson | ECON | [place], [place] | | + + + + + | Oziel Jackson | ECON | [place], [place] | | + + + + + Care Team Providers + +------+ + | Care Performance Test Architect Name | Role | Phone | + [...] | | | | | disease), | [address] | [address] | | | | | lumbar | Phone: | Phone: | | | | | Facet | [phone] | [phone] | | | | | arthritis of | Fax: | Fax: | | | | | lumbar | [phone] | [phone] | | | | | region | [...] [place] | | | | | | [address] | [address] Phone: | | | | | | Phone: | [phone] | | | | | | [phone] | Fax: | | | | | | Fax: | [phone] | | | | | | [phone] | | +--------+ + + + + + Encounter Details +--------+---------+ + + + | Date | Type | Department | Care Team | Description | +--------+---------+ + + + | 08/24/ | Office | [facility] | Harsha Selby | Chronic low back | | 2014 | Visit | PHYSIATRY [address] | MD Josh [address] | pain (Primary Dx); | | | | [place], | [place], [place] | DDD (degenerative | | | | [place] [address] | [address] | disc disease), | | | | [phone] | | lumbar; Facet | | | [...] y.o. female being seen today at [facility] Rodolfo Cruz for complaints [...] Laterality: N/A; Surgeon: Lauri Garrison MD; Location: [facility] PROCEDURE [facility] Upper gastrointestinal endoscopy 11/04/2013 EGD IP 449; Laterality: N/A; Surgeon: Samm Pandya MD; Location: [facility] MEDICAL PROCEDURE UNIT CURRENT MEDICATIONS: Current [...] has no apparent deficits with short or penitentiary memory. She has appropriate fund of knowledge [...] STREETER | | | | | | [id number] | | | | | | | | +--------+---------+ + + + | 11/21/ | Office | Cardiology | Yesi, | | 2019 | Visit | | JOSE ALBERTO Linder [address] | | | | | | [place] | | | | | | [place] [address] | | | | | | [phone] | | | | | | | [...]
--- OUTSIDE RECORDS SUMMARY | ~2019-04-12 | XMS | Encounter Summary ---
Demographics + + + | Address | [address] | | | [place] [address] | + + + | Home Phone [...] | Author | [facility] | | | and Ohana | + + + | Organization | [facility] | | [...] SWA[place] | | | | | [place] [address] | | + + + + + | Hunter Jackson | ECON | [place] | | + + + + + | Wes Jackson | ECON | [place], [place] | | + + + + + | Oziel Jackson | ECON | [place], [place] | | + + + + + Care Team Providers + +------+ + | Care Family Law Legal Assistant Name | Role | Phone | [...] | Valvular heart | | | | [place], | [place], | disease; Epistaxis; | | | | [place] [address] | [place] [address] | Murmur; Essential | | | | [phone] | [phone] | hypertension with | | | | [...] involving | | | | | | crow coronary | | | | | | artery of crow | | | | | | heart with unstable | | | | | | angina pectoris | | | | | | ([facility]); Chest pain, | | | [...] encounter Patient Instructions Patient Instructions Stefani Onofre, Beet End Supervisor - 11/18/2018 10:00 AM PDT1. 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 Above data and testing is reviewed this visit; testing below is historical data unless othe rwise specified. ASSESSMENT: 1. Coronary artery disease A. Seen at [facility] they had EKG and sent her home stating it was GERD B. Seen in the emergency room at [facility] for chest pain. Sh e was schedule for stress test and discharged home. C. Stress Test 05/16/16, is maximal asymptomatic stress test, [facility] er very poor function status, achieving [...] Symptoms with moderate exe rtion of the [employer] functional class. Heart failure stage [...] visit, or sooner with concerns. Stefani Hu, Beet End Supervisor am acting as a scribe on behalf of, and in the presenc e of JOSE ALBERTO Pham. - Stefani Onofre Beet End Supervisor 11/18/2018 10:39 I, JOSE ALBERTO Pham, personally performed the services described in this documentati on, as scribed in my presence and it is both accurate and complete. -JOSE ALBERTO Pham 11/18/2018 Portions of this chart may have been created with Jildy voice recognition software. Occasi onal wrong-word or [...] | | | | | | [place] [address] | | | | | | [phone] | | | | | | | [...] + + | Coronary artery disease involving crow coronary artery of crow heart with unstable | | angina pectoris (HCC) | + + | Chest pain, unspecified type | + + documented in this encounter
--- OUTSIDE RECORDS SUMMARY | ~2019-04-12 | XMS | Encounter Summary ---
Demographics + + + | Address | [address] | | | [place] [address] | + + + | Home Phone [...] Author | [facility] | | | and [place]ana | + + + | Organization | [facility] [...] | | | | | [place] [address] | | + + + + + | Hunter Jackson | ECON | [place] | | + + + + + | Wes Jackson | ECON | [place], [place] | | + + + + + | Oziel Jackson | ECON | [place], [place] | | + + + + + Care Team Providers + +------+ + | Care Certified Bench Jeweler Technician Name | Role | Phone | [...] Pulmonary | Rodolfo Reilly MD | [address] | | | | | nodules | [address] | [place], | | | | | Procedures | [place] | [place] [address] | | | | | CT Chest w | [place], [place] | Phone: | | | | | Contrast | [address] | [phone] | | | | | | Phone: | Fax: | | | | | | [phone] | [phone] | | | | | | Fax: | | | | | | | [phone] | | +--------+--------+ + + + + [...] + + | 03/03/ | Office | [facility] | Rodolfo Cruz, | Thoracic back pain | | 2013 | Visit | MEDICINE [facility] | MD [address] | (Primary Dx); | | | | [address] [place] | [place] [address] | Pulmonary nodules; | | | | [place] [address] | [address] | Anemia; 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 | +--------+---------+ + + [...] 06/05/2010 and no changes required: Born in [facility] since 1965 Marital status: Children: 6, 5 living, 10 grandchildren 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 Multiplanar reformatted images created.RADIATION DOSE: DLP [...] [address] | [place] | [phone] | | [facility] | | [address] | | | - IMAGING | | [...]
--- OUTSIDE RECORDS SUMMARY | ~2019-04-12 | XMS | Encounter Summary ---
Demographics + + + | Address | [address] | | | [place] [address] | + + + | Home Phone [...] | Author | [facility] | | | and Ohana | + + + | Organization | [facility] | [...] | | | | | [place] [address] | | + + + + + | Hunter Jackson | ECON | [place] | | + + + + + | Wes Jackson | ECON | [place], [place] | | + + + + + | Oziel Jackson | ECON | [place], [place] | | + + + + + Care Team Providers + +------+ + | Care Brine Tank Separator Operator Name | Role | Phone | [...] + + | 04/14/ | Telephone | [facility] | Rodolfo Cruz, | Back Pain | | 2013 | | MEDICINE [address] [place] [address] | MD [address] | | | | | [place] | [place] | | | | | [place] [address] | [address] | | | | | [phone] | | | +--------+ + + + [...] | | | | | | [place] [address] | | | | | | [phone] | | | | | | | | +--------+---------+ + + + documented as of this encounter Visit Diagnoses Not on filedocumented in this encounter"
--- OUTSIDE RECORDS SUMMARY | ~2019-04-12 | XMS | Encounter Summary ---
Demographics + + + | Address | [address] | | | [place] [address] | + + + | Home Phone [...] Author | [facility] | | | and Ohana | + + + | Organization | [facility] | [...] [place] | | | | | [place] [address] | | + + + + + | Hunter Jackson | ECON | [place] | | + + + + + | Wes Jackson | ECON | [place], [place] | | + + + + + | Oziel Jackson | ECON | [place], [place] | | + + + + + Care Team Providers + +------+ + | Care Well Drill Operator Helper Cable Tool Name | Role | Phone | [...] | Ulysses Rios MD | [address] | | | | | right | [address] | [place], | | | | | shoulder | [place] | [place] | | | | | pain | [place], [place] | [address] | | | | | Procedures | [address] | Phone: | | | | | MRI Shoulder | Phone: | [phone] | | | | | Right wo | [phone] | Fax: | | | | | Contrast | Fax: | [phone] | | | | | | [phone] | | +--------+--------+ + + + + [...] | Ulysses Rios MD | [address] | | | | | right | [address] | [place], | | | | | shoulder | [place] | [place] | | | | | pain | [place], [place] | [address] | | | | | Procedures | [address] | Phone: | | | | | MRI Shoulder | Phone: | [phone] | | | | | Right wo | [phone] | Fax: | | | | | Contrast | Fax: | [phone] | | | | | | [phone] | | +--------+--------+ + + + + Encounter Details +--------+ + + + + | Date | Type | Department | Care Team | Description | +--------+ + + + + | 09/26/ | Hospital | [facility] | Ulysses Jensen, | Chronic right | | 2017 | Encounter | MED CTR MRI [address] | [address] | shoulder pain | | | | [place], | [place], [place] | | | | | [place] [address] | [address] | | | | | [phone] | | | +--------+ + + + [...] STREETER | | | | | | [address] | | | | | | | | +--------+---------+ + + + | 11/21/ | Office | Cardiology | Yesi, | | | 2019 | Visit | | JOSE ALBERTO Linder [address] | | | | | | [place], | | | | | | [place] [address] | | | | | | [phone] | | | | | | | [...] Axial proton density fat sat, coronal proton [facility] | | density fat sat, sagittal [...] [address] | [place] | [phone] | | [facility] | | [address] | | | - IMAGING | | | | + + + + + documented in this encounter Visit Diagnoses + + | Diagnosis | + + | Chronic right shoulder pain Pain in joint, shoulder region | + + documented in this encounter"
--- OUTSIDE RECORDS SUMMARY | ~2019-04-12 | XMS | Encounter Summary ---
Demographics + + + | Address | [address] | | | [place] [address] | + + + | Home Phone [...] Author | [facility] | | | and [place] | + + + | Organization | [facility] [...] | | | | | [place] [address] | | + + + + + | Hunter Jackson | ECON | [place] | | + + + + + | Wes Jackson | ECON | [place], [place] | | + + + + + | Oziel Jackson | ECON | [place], [place] | | + + + + + Care Team Providers + +------+ + | Care Sr. Director Product Management Name | Role | Phone | + [...] + | 05/19/ | Office | [facility] | Rodolfo Cruz, | Asthma (Primary Dx); | | 2015 | Visit | MEDICINE [address] [place] [address] | MD [address] | Anemia; Essential | | | | [address] [place] | [place], [place] | hypertension; | | | | [facility] [place] [address] | [address] | Hyperlipidemia; | | | | [phone] | | Bilateral thoracic | | | [...] our last visit, seen at ER in [place]. 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
--- OUTSIDE RECORDS SUMMARY | ~2019-04-12 | XMS | Encounter Summary ---
Demographics + + + | Address | [address] | | | [place] [address] | + + + | Home Phone | | + + + | Preferred Language | Unknown | + + + | Marital Status | Single | + + + | Mosque Affiliation | Unknown | + + + | Race | Unknown | + + + | Ethnic Group | Other Race | + + + Author + + + | Author | [facility] | + + + | Organization | [facility] | + + + | Address | Unknown | + + + | Phone | Unavailable | + + + Support + + +---------+ + | Name | Relationship | Address | Phone | + + +---------+ + | None None | ECON | Unknown | Unavailable | + + +---------+ + Care Team Providers + +------+ + | Care Mine Technician Name | Role | Phone | + +------+ + PCP | Unavailable | + +------+ + Encounter Details +--------+ + + + + | Date | Type | Department | Care Team | Description | +--------+ + + + + | 06/05/ | Ancillary | [facility] | | | | 2005 | Registratio | Practice [address] | | | | | n | [facility] | | | | | | [place] [address] | | | | | | [phone] | | | +--------+ + + + [...]
--- OUTSIDE RECORDS SUMMARY | ~2019-04-12 | XMS | Encounter Summary ---
Demographics + + + | Address | [address] | | | [place] [address] | + + + | Home Phone [...] | Author | [facility] | | | and [place]ana | + + + | Organization | [facility] [...] | | | | | [place] [address] | | + + + + + | Hunter Jackson | ECON | [place] | | + + + + + | Wes Jackson | ECON | [place], [place] | | + + + + + | Oziel Jackson | ECON | [place], [place] | | + + + + + Care Team Providers + +------+ + | Care Pricing Specialist Name | Role | Phone | [...] + + | 11/24/ | Telephone | [facility] | Yany, | Other (injections) | | 2014 | | PHYSIATRY [address] | [address] | | | | | [place], | [facility], | | | | | [place] [address] | [place] [address] | | | | | [phone] | [phone] | | | | | | | [...] | | | | | | [place] [address] | | | | | | [phone] | | | | | | | | +--------+---------+ + + + documented as of this encounter Visit Diagnoses Not on filedocumented in this encounter"
--- OUTSIDE RECORDS SUMMARY | ~2019-04-12 | XMS | Encounter Summary ---
Demographics + + + | Address | [address] | | | [place] [address] | + + + | Home Phone [...] + | Author | [facility] | | | and [place]ana | + + + | Organization | [facility] | | [...] | | | | | [place] [address] | | + + + + + | Hunter Jackson | ECON | [place] | | + + + + + | Wes Jackson | ECON | [place], [place] | | + + + + + | Oziel Jackson | ECON | [place], [place] | | + + + + + Care Team Providers + +------+ + | Care Telegraph Operator Name | Role | Phone | + +------+ + PCP | Unavailable | + +------+ + Encounter Details +--------+ + + + + | Date | Type | Department | Care Team | Description | +--------+ + + + + | 07/03/ | Hospital | [facility] | | | | 2010 | Encounter | MED CTR XRAY [address] | | | | | | [place] | | | | | | [place] [address] | | | | | | [phone] | | | +--------+ + + + [...] STREETER | | | | | | [address] | | | | | | | | +--------+---------+ + + + | 11/21/ | Office | Cardiology | Yesi, | | | 2019 | Visit | | JOSE ALBERTO [address] | | | | | | [place], | | | | | | [place] [address] | | | | | | [phone] | | | | | | | | +--------+---------+ + + + documented as of this encounter Visit Diagnoses Not on filedocumented in this encounter"
--- OUTSIDE RECORDS SUMMARY | ~2019-04-12 | XMS | Encounter Summary ---
Demographics + + + | Address | [address] | | | [place] [address] | + + + | Home Phone [...] Author | [facility] | | | and [place] | + + + | Organization | [facility] [...] | | | | | [place] [address] | | + + + + + | Hunter Jackson | ECON | [place] | | + + + + + | Wes Jackson | ECON | [place], [place] | | + + + + + | Oziel Jackson | ECON | [place], [place] | | + + + + + Care Team Providers + +------+ + | Care Contact Center Manager Name | Role | Phone | + +------+ + | Rodolfo Cruz MD | PCP | | + +------+ + Encounter Details +--------+ + + + + | Date | Type | Department | Care Team | Description | +--------+ + + + + | 12/24/ | Hospital | [facility] | Rodolfo Cruz, | Right foot pain | | 2013 | Encounter | MED CTR [address]IONE XRAY | MD [address] | | | | | [address] [place] | [place], [place] | | | | | [place] | [address] | | | | | [address] | | | | | | [phone] | | | +--------+ + + + [...] [place] | | | | | | [address] | | | | | | | | +--------+---------+ + + + | 11/21/ | Office | Cardiology | Yesi, | | | 2019 | Visit | | JOSE ALBERTO Linder [address] | | | | | | [place], | | | | | | [place] [address] | | | | | | [phone] | | | | | | | [...] + | MISCELLANEOUS LAB | | | [phone] | + +---------+ + + | MISCELANIOUS LAB | | | [phone] | + +---------+ + + documented in this encounter Visit Diagnoses + + | Diagnosis | + + | Right foot pain Pain in limb | + + documented in this encounter"
--- OUTSIDE RECORDS SUMMARY | ~2019-04-12 | XMS | Encounter Summary ---
Demographics + + + | Address | [address] | | | [place] [address] | + + + | Home Phone [...] | Author | [facility] | | | and [place] | + + + | Organization | [facility] | | [...] | | | | | [place] [address] | | + + + + + | Hunter Jackson | ECON | [place] | | + + + + + | Wes Jackson | ECON | [place], [place] | | + + + + + | Oziel Jackson | ECON | [place], [place] | | + + + + + Care Team Providers + +------+ + | Care Tugboat Engineer Name | Role | Phone | [...] + + | 08/18/ | Office | [facility] | Ulysses Jensen, | Rotator cuff | | 2014 | Visit | ORTHOPEDIC SURGERY | MD Danny PARHAM | syndrome of right | | | | [address] [facility] | [place] [address] | shoulder (Primary | | | | [place] | [address] | Dx); [facility] arthritis | | | | [address] | | | | | | [phone] | | | +--------+---------+ + + + [...] STREETER | | | | | | [id number] | | | | | | | | +--------+---------+ + + + | 11/21/ | Office | Cardiology | Yesi, | | | 2020 | Visit | | JOSE ALBERTO Linder [address] | | | | | | [place], | | | | | | [place] [address] | | | | | | [phone] | | | | | | | [...]
--- OUTSIDE RECORDS SUMMARY | ~2019-04-12 | XMS | Encounter Summary ---
Demographics + + + | Address | [address] | | | [place] [address] | + + + | Home Phone [...] | [facility] | | | and [place] | + + + | Organization | [facility] | | | and [place] | + + + | Address | Unknown | + + + | Phone | Unavailable | + + + Support + + + + + | Name | Relationship | Address | Phone | + + + + + | Osmin Jackson | ECON | [address] | | | | | [place] [address] | | + + + + + | Hunter Jackson | ECON | [place] | | + + + + + | Wes Jackson | ECON | [place], [place] | | + + + + + | Oziel Jackson | ECON | [place], [place] | | + + + + + Care Team Providers + +------+ + | Care Stone Operator Name | Role | Phone | [...] [place] | | | | | | [address] | [address] | | | | | | Phone: | Phone: | | | | | | [phone] | [phone] | | | | | | Fax: | Fax: | | | | | | [phone] | [phone] | +--------+ + + + + + Reason for Visit + + + | Reason | Comments | + + + | Toe Pain | right | + + + Encounter Details +--------+---------+ + + + | Date | Type | Department | Care Team | Description | +--------+---------+ + + + | 12/24/ | Office | [facility] | Rodolfo Cruz, | Back pain (Primary | | 2013 | Visit | MEDICINE [facility] | [address] | Dx); Anemia; Right | | | | Street [place] | [place] | foot pain; | | | | [place] [address] | [id number] | Osteoarthritis | | | | [phone] | | | +--------+---------+ + + + [...] changes required: Born in [facility] since 1965 Marital status: Children: 6, 5 living, 10 grandchildren 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
--- OUTSIDE RECORDS SUMMARY | ~2019-04-12 | XMS | Encounter Summary ---
Demographics + + + | Address | [address] | | | [place] [address] | + + + | Home Phone [...] | Author | [facility] | | | and [place] | + + + | Organization | [facility] | [...] [place] | | | | | [place] [address] | | + + + + + | Hunter Jackson | ECON | [place] | | + + + + + | Wes Jackson | ECON | [place], [place] | | + + + + + | Oziel Jackson | ECON | [place], [place] | | + + + + + Care Team Providers + +------+ + | Care Reactor Technician Name | Role | Phone | [...] [address] | | | | | [place], | [place], | | | | | [place] [address] | [place] [address] | | | | | [phone] | [phone] | | | | | | | [...] STREETER | | | | | | [address] | | | | | | | | +--------+---------+ + + + | 11/21/ | Office | Cardiology | Yesi | | | 2019 | Visit | | JOSE ALBERTO Linder [address] | | | | | | [place] | | | | | | [place] [address] | | | | | | [phone] | | | | | | | | +--------+---------+ + + + documented as of this encounter Visit Diagnoses Not on filedocumented in this encounter"
--- OUTSIDE RECORDS SUMMARY | ~2019-04-12 | XMS | Encounter Summary ---
Demographics + + + | Address | [address] | | | [place] [address] | + + + | Home Phone [...] | Author | [facility] | | | and [place]ana | + + + | Organization | [facility] [...] | | | | | [place] [address] | | + + + + + | Hunter Jackson | ECON | [place] | | + + + + + | Wes Jackson | ECON | [place], [place] | | + + + + + | Oziel Jackson | ECON | [place], [place] | | + + + + + Care Team Providers + +------+ + | Care Welding Pantograph Operator Name | Role | Phone | [...] + + | 11/24/ | Office | [facility] | Rodolfo Cruz, | Anemia (Primary Dx); | | 2013 | Visit | [address] | MD [address] | UGI bleed; PUD | | | | [address] | [place] | (peptic ulcer | | | | [place] [address] | [address] | disease) | | | | [phone] | | | +--------+---------+ + + + [...] W | | | | | | [place], | | | | | | [place] [address] | | | | | | [phone] | | | | | | | [...]
--- OUTSIDE RECORDS SUMMARY | ~2019-04-12 | XMS | Encounter Summary ---
Demographics + + + | Address | [address] | | | [place] [address] | + + + | Home Phone [...] | | | | | [place] [address] | | + + + + + | Hunter Jackson | ECON | [place] | | + + + + + | Wes Jackson | ECON | [place], [place] | | + + + + + | Oziel Jackson | ECON | [place], [place] | | + + + + + Care Team Providers + +------+ + | Care Resource Economist Name | Role | Phone | + +------+ + | Rodoflo Cruz MD | PCP | | + +------+ + Reason for Visit + + + | Reason | Comments | + + + | Appointment | | + + + Encounter Details +--------+ + + + + | Date | Type | Department | Care Team | Description | +--------+ + + + + | 11/24/ | Telephone | [facility] | Rodolfo Cruz, | Appointment | | 2013 | | MEDICINE [address] [place] [address] | MD [address] | | | | | Preet [place]aca | [place] [address] | | | | | [place] [address] | [address] | | | | | [phone] | | | +--------+ + + + [...] | | | | | | [place] [address] | | | | | | [phone] | | | | | | | | +--------+---------+ + + + documented as of this encounter Visit Diagnoses Not on filedocumented in this encounter"
--- OUTSIDE RECORDS SUMMARY | ~2019-04-12 | XMS | Encounter Summary ---
Demographics + + + | Address | [address] | | | [place] [address] | + + + | Home Phone [...] + | Author | [facility] | | | and [place] | + + + | Organization | [facility] [...] | | | | | [place] [address] | | + + + + + | Hunter Jackson | ECON | [place] | | + + + + + | Wes Jackson | ECON | [place], [place] | | + + + + + | Oziel Jackson | ECON | [place], [place] | | + + + + + Care Team Providers + +------+ + | Care Hand Polisher Name | Role | Phone | + +------+ + | Rodolfo Cruz MD | PCP | | + +------+ + Encounter Details +--------+ + + + + | Date | Type | Department | Care Team | Description | +--------+ + + + + | 10/22/ | Hospital | [facility] | Rodolfo Cruz, | Thoracic sprain and | | 2013 | Encounter | [facility] | [address] | strain, subsequent | | | | [address] [place] | [place], [place] | encounter | | | | [place], [place] | [address] | | | | | [address] | | | | | | [phone] | | | +--------+ + + + [...] W | | | | | | [place], | | | | | | [place] [address] | | | | | | [phone] | | | | | | | [...] + | MISCELLANEOUS LAB | | | [phone] | + +---------+ + + | MISCELANIOUS LAB | | | [phone] | + +---------+ + + documented in this encounter Visit Diagnoses + + | Diagnosis | + + | Thoracic sprain and strain, subsequent encounter | + + documented in this encounter"
--- OUTSIDE RECORDS SUMMARY | ~2019-04-12 | XMS | Encounter Summary ---
Demographics + + + | Address | [address] | | | [place] [address] | + + + | Home Phone [...] | Author | [facility] [place] | | | and [place] | + + + | Organization | [facility] [...] | | | | | [place] [address] | | + + + + + | Hunter Jackson | ECON | [place] | | + + + + + | Wes Jackson | ECON | [place], [place] | | + + + + + | Oziel Jackson | ECON | [place], [place] | | + + + + + Care Team Providers + +------+ + | Care Webmaster Name | Role | Phone | + [...] Pulmonary | Rodolfo Reilly MD | [address] | | | | | nodules | [address] | [place], | | | | | 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 | [place], [place] | Phone: | | | | | Procedures | [address] | [phone] | | | | | CT Chest w | Phone: | Fax: | | | | | Contrast | [phone] | [phone] | | | | | 02/16/14 | Fax: | | | | | | | [phone] | | +--------+--------+ + + + + [...] Pulmonary | Rodolfo Reilly MD | [address] | | | | | nodules | [address] | [place], | | | | | 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 | [place], [place] | Phone: | | | | | Procedures | [address] | [phone] | | | | | CT Chest w | Phone: | Fax: | | | | | Contrast | [phone] | [phone] | | | | | 02/16/14 | Fax: | | | | | | | [phone] | | +--------+--------+ + + + + Encounter Details +--------+ + + + + | Date | Type | Department | Care Team | Description | +--------+ + + + + | 02/22/ | Hospital | [facility] | Rodolfo Cruz, | Pulmonary nodules; | | 2013 | Encounter | MED CTR [address] | MD [address] | 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
--- OUTSIDE RECORDS SUMMARY | ~2019-04-12 | XMS | Encounter Summary ---
Demographics + + + | Address | [address] | | | [place] [address] | + + + | Home Phone [...] | Author | [facility] | | | and [place] | + + + | Organization | [facility] | | [...] | | | | | [place] [address] | | + + + + + | Hunter Jackson | ECON | [place] | | + + + + + | Wes Jackson | ECON | [place], [place] | | + + + + + | Oziel Jackson | ECON | [place], [place] | | + + + + + Care Team Providers + +------+ + | Care Freight Team Associate Name | Role | Phone | + +------+ + | Rodolfo Cruz MD | PCP | | + +------+ + Encounter Details +--------+---------+ + + + | Date | Type | Department | Care Team | Description | +--------+---------+ + + + | 10/29/ | Office | [facility] | Ulysses Jensen, | [facility] arthritis | | 2012 | Visit | ORTHOPEDIC SURGERY | [address] [facility] | (Primary Dx) | | | | [address] [place] [address] | [place], [place] | | | | | [place], [place] | [address] | | | | | [address] | | | | | | [phone] | | | +--------+---------+ + + + [...] | | | | | | [place] [address] | | | | | | [phone] | | | | | | | [...] | | | Infiltration, ONCE, [facility] 10/29/12 | | AM PDT | [...] | | ONCE, [facility] 10/29/12 at 1130, For 1 | | | | | | | dose, Shake well. Not for IV | | | | | | | use., | | | | | | + +-------+ +-------+---+---+ +---+---+ | | | +---+---+ documented in this encounter"
--- OUTSIDE RECORDS SUMMARY | ~2019-04-12 | XMS | Encounter Summary ---
Demographics + + + | Address | [address] | | | [place] [address] | + + + | Home Phone [...] | | | | | [place] [address] | | + + + + + | Hunter Jackson | ECON | [place], [place] | | + + + + + | Wes Jackson | ECON | [place], [place] | | + + + + + | Oziel Jackson | ECON | [place], [place] | | + + + + + Care Team Providers + +------+ + | Care Dry End Operator Name | Role | Phone | [...] 07/08/ | Telephone | [facility] [place] | [place], | Chest Pain | | 2016 | | CARDIOLOGY [address] | JOSE ALBERTO Linder [address] | | | | | [place], | [place], | | | | | [place] [address] | [place] [address] | | | | | [phone] | [phone] | | | | | | | [...] STREETER | | | | | | [address] | | | | | | | | +--------+---------+ + + + | 11/21/ | Office | Cardiology | Yesi | | | 2019 | Visit | | JOSE ALBERTO Linder [address] | | | | | | [place] | | | | | | [place] [address] | | | | | | [phone] | | | | | | | | +--------+---------+ + + + documented as of this encounter Visit Diagnoses Not on filedocumented in this encounter"
--- OUTSIDE RECORDS SUMMARY | ~2019-04-12 | XMS | Encounter Summary ---
Demographics + + + | Address | [address] | | | [place] [address] | + + + | Home Phone [...] | Author | [facility] | | | and [place] | + + + | Organization | [facility] | [...] | | | | | [place] [address] | | + + + + + | Hunter Jackson | ECON | [place] | | + + + + + | Wes Jackson | ECON | [place], [place] | | + + + + + | Oziel Jackson | ECON | [place], [place] | | + + + + + Care Team Providers + +------+ + | Care Printing Roller Polisher Name | Role | Phone | [...] pain (Primary Dx); | | | | [place], | [facility], | Facet arthritis [place] | | | | [place] [address] | [place] [address] | lumbar region | | | | [phone] | [phone] | | | | | | | [...] | | | | | | [place] [address] | | | | | | [phone] | | | | | | | | +--------+---------+ + + + documented as of this encounter Visit Diagnoses + + | Diagnosis | + + | Chronic low back pain - Primary Lumbago | + + | Facet arthritis of lumbar region Lumbosacral spondylosis without myelopathy | + + documented in this encounter"
--- OUTSIDE RECORDS SUMMARY | ~2019-04-12 | XMS | Encounter Summary ---
Demographics + + + | Address | [address] | | | [place] [address] | + + + | Home Phone [...] | Author | [facility] | | | and [place] | + + + | Organization | [facility] [...] | | | | | [place] [address] | | + + + + + | Hunter Jackson | ECON | [place] | | + + + + + | Wes Jackson | ECON | [place], [place] | | + + + + + | Oziel Jackson | ECON | [place], [place] | | + + + + + Care Team Providers + +------+ + | Care Treasury Analyst Name | Role | Phone | [...] + + | 07/18/ | Telephone | [facility] | Rodolfo Cruz, | Medication | | 2015 | | MEDICINE [address] [place] [address] | MD Raya [address] | Management | | | | [address] | [place] [address] | | | | | [place] [address] | [address] | | | | | [phone] | | | +--------+ + + + [...] | | | | | | [place] [address] | | | | | | [phone] | | | | | | | | +--------+---------+ + + + documented as of this encounter Visit Diagnoses Not on filedocumented in this encounter"
--- OUTSIDE RECORDS SUMMARY | ~2019-04-12 | XMS | Encounter Summary ---
Demographics + + + | Address | [address] | | | [place] [address] | + + + | Home Phone [...] | Author | [facility] | | | and [place] | + + + | Organization | [facility] [...] | | | | | [place] [address] | | + + + + + | Hunter Jackson | ECON | [place] | | + + + + + | Wes Jackson | ECON | [place], [place] | | + + + + + | Oziel Jackson | ECON | [place], [place] | | + + + + + Care Team Providers + +------+ + | Care Supervisor Electric Motor Testing Name | Role | Phone | + +------+ + | Rodolfo Cruz MD | PCP | | + +------+ + Encounter Details +--------+ + + + + | Date | Type | Department | Care Team | Description | +--------+ + + + + | 06/16/ | Hospital | [facility] | Rodolfo Cruz, | Fatigue; Essential | | 2014 | Encounter | MED CTR LABORATORY | MD Raya RASHID | hypertension; | | | | [address] [place] | [place], [place] | Pulmonary nodule, | | | | [place], [place] | [address] | right; Pulmonary | | | | [address] | | nodule | | | | [phone] | | | +--------+ + + + [...] STREETER | | | | | | [address] | | | | | | | | +--------+---------+ + + + | 11/21/ | Office | Cardiology | Yesi, | | | 2019 | Visit | | JOSE ALBERTO Linder [address] | | | | | | [place], | | | | | | [place] [address] | | | | | | [phone] | | | | | | | [...] mL/min/1.73m2 | [facility] | | | [place]SIAN | | | MEDICAL | | | [...] + | [facility] | [address] | [place], [place] | [phone] | | [facility] | | [address] | | | - LABORATORY | | | | + + + + + | [facility] | [address] | [place], [place] | | | [facility] | | [address] | | | - LABORATORY | | [...] + | [facility] | [address] | [place] | [phone] | | [facility] | | [address] | | | - LABORATORY | | | | + + + + + | [facility] | [address] | [place] | | | [facility] | | [address] | | | - LABORATORY | | [...] ST. | [address] | [place], [place] | [phone] | | [facility] | | [address] | | | - LABORATORY | | | | + + + + + | [facility] | [address] | [place], [place] | | | [facility] | | [address] | | | - LABORATORY | | [...] | samples are screened | uIU/mL | [facility] | | | | using a [...] + | [facility] | [address] | [place] | [phone] | | [facility] | | [address] | | | - LABORATORY | | | | + + + + + | [facility] | [address] | [place] | | | [facility] | | [address] | | | - LABORATORY | | [...] | | | FILTRATION | mL/min/1.73m2 | [facility] | | | RUSSIAN | RATE,ESTIMATED | | MEDICAL | | | | mL/min/1.75b5Mhgc than | | CENTER - | | [...] | | | | | mg/dL | [facility] | | | | | | MEDICAL | | | | | | CENTER - | | | | | | LABORATORY | | + + + + + + | Albumin | 4.0 | 3.2 - 5.0 g/dL | [facility] | | | | | | [facility] | | | | | | [...] [address] | [place] | [phone] | | [facility] | | [address] | | | - LABORATORY | | | | + + + + + | [facility] | [address] | [place] | | | [facility] | | [address] | | | - LABORATORY | | [...] - 1.030 | [facility] | | | [place] | | | [facility] | | [...] + | [facility] | [address] | [place], [place] | [phone] | | [facility] | | [address] | | | - LABORATORY | | | | + + + + + | [facility] | [address] | [place], [place] | | | [facility] | | [address] | | | - LABORATORY | | [...] [address] | [place] | [phone] | | [facility] | | [address] | | | - LABORATORY | | | | + + + + + | [facility] | [address] | [place] | | | [facility] | | [address] | | | - LABORATORY | | [...] + | [facility] | [address] | [place] | [phone] | | [facility] | | [address] | | | - LABORATORY | | | | + + + + + | [facility] | [address] | [place] | | | [facility] | | [address] | | | - LABORATORY | | [...] + | [facility] | [address] | [place], [place] | [phone] | | [facility] | | [address] | | | - LABORATORY | | | | + + + + + | [facility] | [address] | [place], [place] | | | [facility] | | [address] | | | - LABORATORY | | [...]
--- OUTSIDE RECORDS SUMMARY | ~2019-04-12 | XMS | Encounter Summary ---
Demographics + + + | Address | [address] | | | [place] [address] | + + + | Home Phone [...] | [facility] | | | and [place] | + + + | Organization | [facility] | | [...] [place] | | | | | [place] [address] | | + + + + + | Hunter Jackson | ECON | [place] | | + + + + + | Wes Jackson | ECON | [place], [place] | | + + + + + | Oziel Jackson | ECON | [place], [place] | | + + + + + Care Team Providers + +------+ + | Care Cloth Desizing Range Tender Name | Role | Phone | + +------+ + | Kellie Gunderson | PCP | | + +------+ + Encounter Details +--------+ + + + + | Date | Type | Department | Care Team | Description | +--------+ + + + + | 11/05/ | Telephone | [facility] | Rodolfo Cruz, | | | 2013 | | MEDICINE [address] [place] [address] | MD [address] | | | | | [facility] | [place], [place] | | | | | [place] [address] | [address] | | | | | [phone] | | | +--------+ + + + [...] STREETER | | | | | | [id number] | | | | | | | | +--------+---------+ + + + | 11/21/ | Office | Cardiology | Yesi, | | | 2019 | Visit | | JOSE ALBERTO Linder [address] | | | | | | [place], | | | | | | [place] [address] | | | | | | [phone] | | | | | | | | +--------+---------+ + + + documented as of this encounter Visit Diagnoses Not on filedocumented in this encounter"
--- OUTSIDE RECORDS SUMMARY | ~2019-04-12 | XMS | Encounter Summary ---
Demographics + + + | Address | [address] | | | [place] [address] | + + + | Home Phone [...] Author | [facility] | | | and [place] | + + + | Organization | [facility] [...] | | | | | [place] [address] | | + + + + + | Hunter Jackson | ECON | [place] | | + + + + + | Wes Jackson | ECON | [place], [place] | | + + + + + | Oziel Jackson | ECON | [place], [place] | | + + + + + Care Team Providers + +------+ + | Care Naturalist Name | Role | Phone | + +------+ + | Rodolfo Cruz MD | PCP | | + +------+ + Encounter Details +--------+ + + + + | Date | Type | Department | Care Team | Description | +--------+ + + + + | 02/16/ | Orders Only | [facility] | Rodolfo Cruz, | Pulmonary nodule | | 2013 | | MEDICINE [address] [place] [address] | MD [address] | (Primary Dx) | | | | [facility] | [place], [place] | | | | | [place] [address] | [address] | | | | | [phone] | | | +--------+ + + + [...] [place] | | | | | | [address] | | | | | | | | +--------+---------+ + + + | 11/21/ | Office | Cardiology | Yesi, | | | 2019 | Visit | | JOSE ALBERTO Linder [address] | | | | | | [place], | | | | | | [place] [address] | | | | | | [phone] | | | | | | | [...] mL/min/1.73m2 | [facility] | | | [place] | | | MEDICAL | | | [...] + | [facility] | [address] | [place] | [phone] | | [facility] | | [address] | | | - LABORATORY | | | | + + + + + | [facility] | [address] | [place] | | | [facility] | | [address] | | | - LABORATORY | | [...] + | [facility] | [address] | [place] | [phone] | | [facility] | | [address] | | | - LABORATORY | | | | + + + + + | [facility] | [address] | [place] | | | [facility] | | [address] | | | - LABORATORY | | | | + + + + + documented in this encounter Visit Diagnoses + + | Diagnosis | + + | Pulmonary nodule - Primary Solitary pulmonary nodule | + + documented in this encounter"
--- OUTSIDE RECORDS SUMMARY | ~2019-04-12 | XMS | Encounter Summary ---
Demographics + + + | Address | [address] | | | [place] [address] | + + + | Home Phone [...] [facility] | | | and [place] | + + + | Organization | [facility] | | | [...] [place] | | | | | [place] [address] | | + + + + + | Hunter Jackson | ECON | [place] | | + + + + + | Wes Jackson | ECON | [place], [place] | | + + + + + | Oziel Jackson | ECON | [place], [place] | | + + + + + Care Team Providers + +------+ + | Care Test Carrier Name | Role | Phone | + [...] | 07/17/ | Refill | [facility] | Rodolfo Cruz, | Medication Refill | | 2017 | | MEDICINE [place] | [address] | | | | | [address] | [place] | | | | | [place] | [address] | | | | | [address] | | | | | | [phone] | | | +--------+--------+ + + + [...] STREETER | | | | | | [address] | | | | | | | | +--------+---------+ + + + | 11/21/ | Office | Cardiology | Yesi, | | | 2019 | Visit | | JOSE ALBERTO Linder [address] | | | | | | [place] | | | | | | [place] [address] | | | | | | [phone] | | | | | | | | +--------+---------+ + + + documented as of this encounter Visit Diagnoses Not on filedocumented in this encounter"
--- OUTSIDE RECORDS SUMMARY | ~2019-04-12 | XMS | Encounter Summary ---
Demographics + + + | Address | [address] | | | [place] [address] | + + + | Home Phone [...] [place] | | | | | [place] [address] | | + + + + + | Hunter Jackson | ECON | [place] | | + + + + + | Wes Jackson | ECON | [place], [place] | | + + + + + | Oziel Jackson | ECON | [place], [place] | | + + + + + Care Team Providers + +------+ + | Care Integrity Assessor Name | Role | Phone | [...] [address] | | | | | [place], | [place], | | | | | [place] [address] | [place] [address] | | | | | [phone] | [phone] | | | | | | | [...] STREETER | | | | | | [address] | | | | | | | | +--------+---------+ + + + | 11/21/ | Office | Cardiology | Yesi, | | | 2019 | Visit | | JOSE ALBERTO Linder [address] | | | | | | [place] | | | | | | [place] [address] | | | | | | [phone] | | | | | | | | +--------+---------+ + + + documented as of this encounter Visit Diagnoses Not on filedocumented in this encounter"
--- OUTSIDE RECORDS SUMMARY | ~2019-04-12 | XMS | Encounter Summary ---
Demographics + + + | Address | [address] | | | [place] [address] | + + + | Home Phone [...] Author | [facility] | | | and [place] | + + + | Organization | [facility] | [...] | | | | | [place] [address] | | + + + + + | Hunter Jackson | ECON | [place] | | + + + + + | Wes Jackson | ECON | [place], [place] | | + + + + + | Oziel Jackson | ECON | [place], [place] | | + + + + + Care Team Providers + +------+ + | Care Boiler Operators Supervisor Name | Role | Phone [...] + + | 07/08/ | Office | [facility] | Rodolfo Cruz, | Hyperlipidemia | | 2014 | Visit | MEDICINE [facility] | [address] | (Primary Dx); | | | | [address] | [place] | Hypothyroidism; | | | | [place], [place] | [address] | Hypertension; DJD | | | | [address] | | (degenerative joint | | | | [phone] | | disease); Asthma; | | | [...] 06/05/2010 and no changes required: Born in [facility] since 1965 Marital status: Children: 6, 5 living, 10 grandchildren 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
--- OUTSIDE RECORDS SUMMARY | ~2019-04-12 | XMS | Encounter Summary ---
Demographics + + + | Address | [address] | | | [place] [address] | + + + | Home Phone [...] Author | [facility] | | | and [place] | + + + | Organization | [facility] | [...] [place] | | | | | [place] [address] | | + + + + + | Hnuter Jackson | ECON | [place] | | + + + + + | Wes Jackson | ECON | [place], [place] | | + + + + + | Oziel Jackson | ECON | [place], [place] | | + + + + + Care Team Providers + +------+ + | Care Reimbursement Analyst Name | Role | Phone | [...] mixed (Primary Dx); | | | | [place], | [place], | Valvular heart | | | | [place] [address] | [place] [address] | disease; Murmur; | | | | [phone] | [phone] | Essential | | | | | [...] involving | | | | | | cahto coronary | | | | | | artery of cahto | | | | | | heart with unstable | | | | | | angina pectoris | | | | | | ([facility]); Transient | | | | | | [...] undergoing a eep consultation and study in [place] soon. 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 Seen in the emergency room at [facility] for chest pain. She was schedu le for stress test and discharged home. C. Stress Test 05/16/16, is maximal asymptomatic stress test, [facility] er very poor function status, achieving [...] central AI, no , trace TR, trace OK, normal aorta other than mild calcification at [...] failure.She is in a class I of [employer] functional class.on physica l examination [...] this chart may have been created with [employer] voice recognition software. Occasi onal wrong-word or [...] W | | | | | | [place], | | | | | | [place] [address] | | | | | | [phone] | | | | | | | [...] involving | | | | | | cahto coronary | | | | | | artery of cahto | | | | | | heart with unstable | | | | | | angina pectoris | | | | | | ([facility]) Transient | | | | | | [...] MD | | | | | | ([id number]) on 09/12/2017 | | | | | [...] + + | Coronary artery disease involving cahto coronary artery of cahto heart with unstable | | angina pectoris (HCC) | + + | Transient cerebral ischemia, unspecified type | + + documented in this encounter
--- OUTSIDE RECORDS SUMMARY | ~2019-04-12 | XMS | Encounter Summary ---
Demographics + + + | Address | [address] | | | [place] [address] | + + + | Home Phone [...] [facility] | | | and [place] | + + + | Organization | [facility] | [...] | | | | | [place] [address] | | + + + + + | Hunter Jackson | ECON | [place] | | + + + + + | Wes Jackson | ECON | [place], [place] | | + + + + + | Oziel Jackson | ECON | [place], [place] | | + + + + + Care Team Providers + +------+ + | Care Director Of Knowledge Management Name | Role | Phone | + +------+ + PCP | Unavailable | + +------+ + Encounter Details +--------+ + + + + | Date | Type | Department | Care Team | Description | +--------+ + + + + | 01/09/ | Hospital | [facility] | | | | 1998 | Encounter | MED CTR GENERIC OP | | | | | | CONV DEPT [address] | | | | | | [place], | | | | | | [place] [address] | | | | | | [phone] | | | +--------+ + + + [...] | | | | | | [place] [address] | | | | | | [phone] | | | | | | | | +--------+---------+ + + + documented as of this encounter Visit Diagnoses Not on filedocumented in this encounter"
--- OUTSIDE RECORDS SUMMARY | ~2019-04-12 | XMS | Encounter Summary ---
Demographics + + + | Address | [address] | | | [place] [address] | + + + | Home Phone [...] Author | [facility] | | | and [place] | + + + | Organization | [facility] | [...] | | | | | [place] [address] | | + + + + + | Hunter Jackson | ECON | [place] | | + + + + + | Wes Jackson | ECON | [place], [place] | | + + + + + | Oziel Jackson | ECON | [place], [place] | | + + + + + Care Team Providers + +------+ + | Care Qa Automation Engineer Name | Role | Phone | [...] + + | 02/16/ | Telephone | [facility] | Rodolfo Cruz, | Appointment | | 2013 | | MEDICINE [address] [place] [address] | MD [address] | | | | | [place] | [place] | | | | | [place] [address] | [address] | | | | | [phone] | | | +--------+ + + + [...] | | | | | | [place] [address] | | | | | | [phone] | | | | | | | | +--------+---------+ + + + documented as of this encounter Visit Diagnoses Not on filedocumented in this encounter"
--- OUTSIDE RECORDS SUMMARY | ~2019-04-12 | XMS | Encounter Summary ---
Demographics + + + | Address | [address] | | | [place] [address] | + + + | Home Phone [...] Author | [facility] | | | and [place] | + + + | Organization | [facility] [...] [place] | | | | | [place] [address] | | + + + + + | Hunter Jackson | ECON | [place] | | + + + + + | Wes Jackson | ECON | [place], [place] | | + + + + + | Oziel Jackson | ECON | [place], [place] | | + + + + + Care Team Providers + +------+ + | Care Clam Sorter Name | Role | Phone | [...] + + | 08/29/ | Office | [facility] [place] | Ulysses Jensen, | Rotator cuff | | 2017 | Visit | ORTHOPEDIC SURGERY | [address] | syndrome, right | | | | [address] | [place] | (Primary Dx); [facility] | | | | [place] | [address] | arthritis | | | | [address] | | | | | | [phone] | | | +--------+---------+ + + + [...] [place] | | | | | | [address] | | | | | | | | +--------+---------+ + + + | 11/21/ | Office | Cardiology | Yesi, | | | 2019 | Visit | | JOSE ALBERTO Linder [address] | | | | | | [place], | | | | | | [place] [address] | | | | | | [phone] | | | | | | | [...] PDT | | | | | ONCE, [facility] 08/29/16 at 1500, For 1 | | | | | | | dose, Shake well. Not for IV | | | | | | | use., | | | | | | + +-------+ +-------+---+ + +---+---+ | | | +---+---+ documented in this encounter
--- OUTSIDE RECORDS SUMMARY | ~2019-04-12 | XMS | Encounter Summary ---
Demographics + + + | Address | [address] | | | [place] [address] | + + + | Home Phone [...] Author | [facility] | | | and [place] | + + + | Organization | [facility] | [...] | | | | | [place] [address] | | + + + + + | Hunter Jackson | ECON | [place] | | + + + + + | Wes Jackson | ECON | [place], [place] | | + + + + + | Oziel Jackson | ECON | [place], [place] | | + + + + + Care Team Providers + +------+ + | Care Tree Surgeon Helper Name | Role | Phone | + +------+ + | Rodolfo Cruz MD | PCP | | + +------+ + Encounter Details +--------+ + + + + | Date | Type | Department | Care Team | Description | +--------+ + + + + | 10/22/ | Hospital | [facility] | Rodolfo Cruz, | Thoracic sprain and | | 2013 | Encounter | MED CTR DIONE XRAY | [address] | strain, subsequent | | | | [address] [place] | [place], [place] | encounter | | | | [place], [place] | [address] | | | | | [address] | | | | | | [phone] | | | +--------+ + + + [...] | | | | | | [place], | | | | | | [place] [address] | | | | | | [phone] | | | | | | | [...] + | MISCELLANEOUS LAB | | | [phone] | + +---------+ + + | MISCELANIOUS LAB | | | [phone] | + +---------+ + + documented in this encounter Visit Diagnoses + + | Diagnosis | + + | Thoracic sprain and strain, subsequent encounter | + + documented in this encounter"
--- OUTSIDE RECORDS SUMMARY | ~2019-04-12 | XMS | Encounter Summary ---
Demographics + + + | Address | [address] | | | [place] [address] | + + + | Home Phone [...] Author | [facility] | | | and [place] | + + + | Organization | [facility] [...] | | | | | [place] [address] | | + + + + + | Hunter Jackson | ECON | [place] | | + + + + + | Wes Jackson | ECON | [place], [place] | | + + + + + | Oziel Jackson | ECON | [place], [place] | | + + + + + Care Team Providers + +------+ + | Care Rn House Supervisor Name | Role | Phone | + +------+ + | Rodolfo Cruz MD | PCP | | + +------+ + Encounter Details +--------+ + + + + | Date | Type | Department | Care Team | Description | +--------+ + + + + | 03/15/ | Hospital | [facility] | Rodolfo Cruz, | Other specified | | 2014 | Encounter | MED CTR LABORATORY | MD [address] | hypothyroidism; | | | | [address] [place] | [place], [place] | Pulmonary nodule, | | | | [place], [place] | [address] | right | | | | [address] | | | | | | [phone] | | | +--------+ + + + [...] | | | | | | [place] [address] | | | | | | [phone] | | | | | | | [...] [address] | [place] | [phone] | | [facility] | | [address] | | | - LABORATORY | | [...] [address] | [place] | [phone] | | [facility] | | [address] | | | - LABORATORY | | | | + + + + + documented in this encounter Visit Diagnoses + + | Diagnosis | + + | Other specified hypothyroidism | + + | Pulmonary nodule, right Solitary pulmonary nodule | + + documented in this encounter"
--- OUTSIDE RECORDS SUMMARY | ~2019-04-12 | XMS | Encounter Summary ---
Demographics + + + | Address | [address] | | | [place] [address] | + + + | Home Phone [...] + | Author | [facility] | | | and [place] | + + + | Organization | [facility] | [...] | | | | | [place] [address] | | + + + + + | Hunter Jackson | ECON | [place] | | + + + + + | Wes Jackson | ECON | [place], [place] | | + + + + + | Oziel Jackson | ECON | [place], [place] | | + + + + + Care Team Providers + +------+ + | Care Robotics Application Engineer Name | Role | Phone | [...] + + | 09/15/ | Emergency | [facility] | Stanislav Michele, | Thoracic sprain and | | 2013 | | MED CTR EMERGENCY | [address] | beto, initial | | | | CENTER [address] | [place] [address] | encounter (Primary | | | | [place] | [address] | Dx) | | | | [address] | | | | | | [phone] | | | +--------+ + + + [...] cannot be sent through Care Everywhere.THORACIC STRAIN (NIUEAN)documented in this encounter Medications at Time of [...] STREET[place] | | | | | | [address] | | | | | | | | +--------+---------+ + + + | 11/21/ | Office | Cardiology | Yesi, | | | 2019 | Visit | | JOSE ALBERTO Linder [address] | | | | | | [place], | | | | | | [place] [address] | | | | | | [phone] | | | | | | | [...] + | MISCELLANEOUS LAB | | | [phone] | + +---------+ + + | MISCELANIOUS LAB | | | [phone] | + +---------+ + + documented in this encounter Visit Diagnoses + + | Diagnosis | + + | Thoracic sprain and strain, initial encounter - Primary | + + documented in this encounter
--- OUTSIDE RECORDS SUMMARY | ~2019-04-12 | XMS | Encounter Summary ---
Demographics + + + | Address | [address] | | | [place] [address] | + + + | Home Phone [...] | Author | [facility] | | | and [place] | + + + | Organization | [facility] | [...] [place] | | | | | [place] [address] | | + + + + + | Hunter Jackson | ECON | [place] | | + + + + + | Wes Jackson | ECON | [place], [place] | | + + + + + | Oziel Jackson | ECON | [place], [place] | | + + + + + Care Team Providers + +------+ + | Care Director Of Land Acquisition Name | Role | Phone | [...] + + | 03/22/ | Telephone | [facility] | Kellie Gunderson PA | New Patient | | 2019 | | [facility] | [address] [facility] | | | | | [address] | [address] [place], [place] | | | | | [place] | [address] | | | | | [address] | | | | | | [phone] | | | +--------+ + + + [...] | | | | | | [place] [address] | | | | | | [phone] | | | | | | | | +--------+---------+ + + + documented as of this encounter Visit Diagnoses Not on filedocumented in this encounter"
--- OUTSIDE RECORDS SUMMARY | ~2019-04-12 | XMS | Encounter Summary ---
Demographics + + + | Address | [address] | | | [place] [address] | + + + | Home Phone [...] | [facility] | | | and [place] | + + + | Organization | [facility] | | [...] | | | | | [place] [address] | | + + + + + | Hunter Jackson | ECON | [place] | | + + + + + | Wes Jackson | ECON | [place], [place] | | + + + + + | Oziel Jackson | ECON | [place], [place] | | + + + + + Care Team Providers + +------+ + | Care Master Welder Name | Role | Phone | [...] + | 09/03/ | Refill | [facility] | Rodolfo Cruz, | Medication Refill | | 2012 | | MEDICINE [address] | MD [address] | | | | | [place] | [place] | | | | | [place] [address] | [address] | | | | | [phone] | | | +--------+--------+ + + + [...] | | | | | | [place] [address] | | | | | | [phone] | | | | | | | | +--------+---------+ + + + documented as of this encounter Visit Diagnoses + + | Diagnosis | + + | Hypertension - Primary Unspecified essential hypertension | + + documented in this encounter"
--- OUTSIDE RECORDS SUMMARY | ~2019-04-12 | XMS | Encounter Summary ---
Demographics + + + | Address | [address] | | | [place] [address] | + + + | Home Phone [...] + | Author | [facility] | | | and [place] | + + + | Organization | [facility] | [...] | | | | | [place] [address] | | + + + + + | Hunter Jackson | ECON | [place] | | + + + + + | Wes Jackson | ECON | [place], [place] | | + + + + + | Oziel Jackson | ECON | [place], [place] | | + + + + + Care Team Providers + +------+ + | Care Cot Assembler Name | Role | Phone | [...] | 05/15/ | Refill | [facility] [place] [facility] | Rodolfo Cruz, | Medication Refill | | 2016 | | MEDICINE [address] | [address] | | | | | [place] | [place] | | | | | [place] [address] | [address] | | | | | [phone] | | | +--------+--------+ + + + [...] | | | | | | [place] [address] | | | | | | [phone] | | | | | | | | +--------+---------+ + + + documented as of this encounter Visit Diagnoses + + | Diagnosis | + + | Insomnia, unspecified insomnia - Primary | + + documented in this encounter"
--- OUTSIDE RECORDS SUMMARY | ~2019-04-12 | XMS | Encounter Summary ---
Demographics + + + | Address | [address] | | | [place] [address] | + + + | Home Phone [...] Author | [facility] | | | and [place] | + + + | Organization | [facility] | | | [...] [place] | | | | | [place] [address] | | + + + + + | Hunter Jackson | ECON | [place] | | + + + + + | Wes Jackson | ECON | [place], [place] | | + + + + + | Oziel Jackson | ECON | [place], [place] | | + + + + + Care Team Providers + +------+ + | Care Explosives Engineer Name | Role | Phone | + +------+ + | Kellie Gunderson | PCP | | + +------+ + Encounter Details +--------+ + + + + | Date | Type | Department | Care Team | Description | +--------+ + + + + | 11/18/ | Abstract | [facility] | [place]i, | | | 2018 | | CARDIOLOGY [address] | JOSE ALBERTO Linder [address] | | | | | [place], | [place], | | | | | [place] [address] | [place] [address] | | | | | [phone] | [phone] | | | | | | | [...] W | | | | | | [place] | | | | | | [place] [address] | | | | | | [phone] | | | | | | | [...]
--- OUTSIDE RECORDS SUMMARY | ~2019-04-12 | XMS | Encounter Summary ---
Demographics + + + | Address | [address] | | | [place] [address] | + + + | Home Phone [...] | Author | [facility] | | | and [place] | + + + | Organization | [facility] | | [...] [place] | | | | | [place] [address] | | + + + + + | Hunter Jackson | ECON | [place] | | + + + + + | Wes Jackson | ECON | [place], [place] | | + + + + + | Oziel Jackson | ECON | [place], [place] | | + + + + + Care Team Providers + +------+ + | Care Dynamometer Tuner Name | Role | Phone | + [...] [address] | [place] [address] | (Primary Dx) | | | | [place] | [phone] | | | | | [address] | | | | | | [phone] | | | +--------+ + + + [...] | | | | | | [place] [address] | | | | | | [phone] | | | | | | | | +--------+---------+ + + + documented as of this encounter Visit Diagnoses + + | Diagnosis | + + | Wound infection after surgery, initial encounter - Primary | + + documented in this encounter"
--- OUTSIDE RECORDS SUMMARY | ~2019-04-12 | XMS | Encounter Summary ---
Demographics + + + | Address | [address] | | | [place] [address] | + + + | Home Phone [...] | [facility] | | | and [place] | + + + | Organization | [facility] [...] | | | | | [place] [address] | | + + + + + | Hunter Jackson | ECON | [place] | | + + + + + | Wes Jackson | ECON | [place], [place] | | + + + + + | Oziel Jackson | ECON | [place], [place] | | + + + + + Care Team Providers + +------+ + | Care It Quality Assurance Analyst Name | Role | Phone | [...] + + | 11/08/ | Telephone | [facility] | Rodolfo Cruz, | Imaging Only (CT | | 2013 | | MEDICINE [address] | [address] | chest ab/pelvis with | | | | Street [place] | [place], [place] | contrast) | | | | [place] [address] | [address] | | | | | [phone] | | | +--------+ + + + [...] STREET[place] | | | | | | [address] | | | | | | | | +--------+---------+ + + + | 11/21/ | Office | Cardiology | Yesi | | | 2019 | Visit | | JOSE ALBERTO Linder [address] | | | | | | [place] | | | | | | [place] [address] | | | | | | [phone] | | | | | | | | +--------+---------+ + + + documented as of this encounter Visit Diagnoses Not on filedocumented in this encounter"
--- OUTSIDE RECORDS SUMMARY | ~2019-04-12 | XMS | Encounter Summary ---
Demographics + + + | Address | [address] | | | [place] [address] | + + + | Home Phone [...] | Author | [facility] | | | and [place] | + + + | Organization | [facility] [...] | | | | | [place] [address] | | + + + + + | Hunter Jackson | ECON | [place] | | + + + + + | Wes Jackson | ECON | [place], [place] | | + + + + + | Oziel Jackson | ECON | [place], [place] | | + + + + + Care Team Providers + +------+ + | Care Wooden Tank Erector Name | Role | Phone | + +------+ + | Rodolfo Cruz MD | PCP | | + +------+ + Encounter Details +--------+ + + + + | Date | Type | Department | Care Team | Description | +--------+ + + + + | 03/23/ | Hospital | [facility] | Rodolfo Cruz, | Pre-procedure lab | | 2015 | Encounter | MED CTR LABORATORY | MD [address] | exam | | | | [address] [place] | [place], [place] | | | | | [place] | [address] | | | | | [address] | | | | | | [phone] | | | +--------+ + + + [...] STREETER | | | | | | [address] | | | | | | | | +--------+---------+ + + + | 11/21/ | Office | Cardiology | Yesi, | | | 2019 | Visit | | JOSE ALBERTO Linder [address] | | | | | | [place] | | | | | | [place] [address] | | | | | | [phone] | | | | | | | [...] [place] | | | | | | [address] | | | | + + + [...] [address] | [place] [address] | [phone] | + + + + + Comprehensive [...] mL/min/1.73m2 | [facility] | | | [facility] | RATE,ESTIMATED | | MEDICAL | | | | mL/min/1.44i9Scya than | | CENTER - | | [...] + | [address] | [address] | [place] | [phone] | | [facility] | | [address] | | | - LABORATORY | | [...] | | | | | [place] [address] | | | | + + + [...] [address] | [place] [address] | [phone] | + + + + + documented in this encounter Visit Diagnoses + + | Diagnosis | + + | Pre-procedure lab exam Pre-procedural laboratory examination | + + documented in this encounter"
--- OUTSIDE RECORDS SUMMARY | ~2019-04-12 | XMS | Encounter Summary ---
Demographics + + + | Address | [address] | | | [place] [address] | + + + | Home Phone [...] | Author | [facility] | | | and [place] | + + + | Organization | [facility] [...] [place] | | | | | [place] [address] | | + + + + + | Hunter Jackson | ECON | [place] | | + + + + + | Wes Jackson | ECON | [place], [place] | | + + + + + | Oziel Jackson | ECON | [place], [place] | | + + + + + Care Team Providers + +------+ + | Care Computerized Machine Fabric Cutter Name | Role | Phone | [...] [address] | | | | | [place], | [place], | | | | | [place] [address] | [place] [address] | | | | | [phone] | [phone] | | | | | | | [...] STREETER | | | | | | [address] | | | | | | | | +--------+---------+ + + + | 11/21/ | Office | Cardiology | Yesi, | | | 2019 | Visit | | JOSE ALBERTO Linder [address] | | | | | | [place] | | | | | | [place] [address] | | | | | | [phone] | | | | | | | | +--------+---------+ + + + documented as of this encounter Visit Diagnoses Not on filedocumented in this encounter"
--- OUTSIDE RECORDS SUMMARY | ~2019-04-12 | XMS | Encounter Summary ---
Demographics + + + | Address | [address] | | | [place] [address] | + + + | Home Phone [...] + | Author | [facility] | | | and Ohana | + + + | Organization | [facility] | | [...] | | | | | [place] [address] | | + + + + + | Hunter Jackson | ECON | [place] | | + + + + + | Wes Jackson | ECON | [place], [place] | | + + + + + | Oziel Jackson | ECON | [place], [place] | | + + + + + Care Team Providers + +------+ + | Care Hospice Clinical Manager Name | Role | Phone | + +------+ + | Rodolfo Cruz MD | PCP | | + +------+ + Encounter Details +--------+ + + + + | Date | Type | Department | Care Team | Description | +--------+ + + + + | 11/06/ | Hospital | [facility] | Rodolfo Cruz, | Hives of unknown | | 2016 | Encounter | MED CTR LABORATORY | MD [address] | origin | | | | [address] | [place] [address] | | | | | [place] | [address] | | | | | [address] | | | | | | [phone] | | | +--------+ + + + [...] + + + +---------+ + + | Cinebar 3 1000 MG | Take by mouth. [...] [place] | | | | | | [address] | | | | | | | | +--------+---------+ + + + | 11/21/ | Office | Cardiology | Yesi, | | | 2019 | Visit | | JOSE ALBERTO Linder [address] | | | | | | [place], | | | | | | [place] [address] | | | | | | [phone] | | | | | | | [...] - 1.030 | [facility] | | | [place] | | | [facility] | | [...] + | [facility] | [address] | [place] | [phone] | | [facility] | | [address] | | | - LABORATORY | | [...] [address] | [place] | [phone] | | [facility] | | [address] | | | - LABORATORY | | [...] | | | | mg/dL | [facility] | | | | | | MEDICAL | | | | | | CENTER - | | | | | | LABORATORY | | + + + + + + | eGFR if not | >60Comment: GLOMERULAR | >=60 | [facility] | | | | FILTRATION | mL/min/1.73m2 | [facility] | | | PANAMANIAN | RATE,ESTIMATED | | MEDICAL | | | | mL/min/1.71e3Vriw than | | CENTER - | | [...] | | | | mg/dL | [facility] | | | | | [...] [address] | [place] | [phone] | | [facility] | | [address] | | | - LABORATORY | | [...] ST. | [address] | [place] | [phone] | | [facility] | | [address] | | | - LABORATORY | | | | + + + + + documented in this encounter Visit Diagnoses + + | Diagnosis | + + | Hives of unknown origin | + + documented in this encounter"
--- OUTSIDE RECORDS SUMMARY | ~2019-04-12 | XMS | Encounter Summary ---
Demographics + + + | Address | [address] | | | [place] [address] | + + + | Home Phone [...] [facility] | | | and Ohana | + + + | Organization | [facility] [...] | | | | | [place] [address] | | + + + + + | Hunter Jackson | ECON | [place] | | + + + + + | Wes Jackson | ECON | [place], [place] | | + + + + + | Oziel Jackson | ECON | [place], [place] | | + + + + + Care Team Providers + +------+ + | Care Newspaper Editor Managing Name | Role | Phone | + +------+ + | Rodolfo Cruz MD | PCP | | + +------+ + Encounter Details +--------+ + + + + | Date | Type | Department | Care Team | Description | +--------+ + + + + | 05/08/ | Hospital | [facility] | Beatriz Faust | | | 2010 | Encounter | MED CTR LABORATORY | DO Danny Padron | | | | | [address] [facility] | [place], [place] | | | | | [place], [place] | [address] | | | | | [address] | | | | | | [phone] | | | +--------+ + + + [...] | | | | | | [place] [address] | | | | | | [phone] | | | | | | | [...] [address] | [place] | [phone] | | [facility] | | [address] | | | - LABORATORY | | | | + + + + + | [address] | [address] | [place], [place] | | | [facility] | | [address] | | | - LABORATORY | | [...] + | [facility] [facility] | [address] | [place], [place] | [phone] | | [facility] | | [address] | | | - LABORATORY | | | | + + + + + | [facility] | [address] | [place], [place] | | | [facility] | | [address] | | | - LABORATORY | | [...] | + + + + + | [facility] | [address] | [place], [place] | [phone] | | [facility] | | [address] | | | - LABORATORY | | | | + + + + + | [facility] | [address] | [place], [place] | | | [facility] | | [address] | | | - LABORATORY | | | | + + + + + documented in this encounter Visit Diagnoses Not on filedocumented in this encounter"
--- OUTSIDE RECORDS SUMMARY | ~2019-04-12 | XMS | Encounter Summary ---
Demographics + + + | Address | [address] | | | [place] [address] | + + + | Home Phone [...] | Author | [facility] | | | and [place] | + + + | Organization | [facility] [...] | | | | | [place] [address] | | + + + + + | Hunter Jackson | ECON | [place] | | + + + + + | Wes Jackson | ECON | [place], [place] | | + + + + + | Oziel Jackson | ECON | [place], [place] | | + + + + + Care Team Providers + +------+ + | Care Ceramist Name | Role | Phone | + [...] Dx); | | | | [address] [place] | [place], [place] | Rotator cuff | | | | [place] | [address] | syndrome of right | | | | [address] | | shoulder | | | | [phone] | | | +--------+---------+ + + + [...] STREETER | | | | | | [address] | | | | | | | | +--------+---------+ + + + | 11/21/ | Office | Cardiology | Yesi, | | | 2019 | Visit | | JOSE ALBERTO Linder [address] | | | | | | [place], | | | | | | [place] [address] | | | | | | [phone] | | | | | | | [...]
--- OUTSIDE RECORDS SUMMARY | ~2019-04-12 | XMS | Encounter Summary ---
Demographics + + + | Address | [address] | | | [place] [address] | + + + | Home Phone [...] + | Author | [facility] | | | and [place]ana | + + + | Organization | [facility] | | [...] | | | | | [place] [address] | | + + + + + | Hunter Jackson | ECON | [place] | | + + + + + | Wes Jackson | ECON | [place], [place] | | + + + + + | Oziel Jackson | ECON | [place], [place] | | + + + + + Care Team Providers + +------+ + | Care Customer Greeter Name | Role | Phone | [...] + + | 02/18/ | Refill | [facility] | Bree Nails RN | Medication Refill | | 2011 | | MEDICINE [facility] | | | | | | [place] | | | | | | [place] [address] | | | | | | [phone] | | | +--------+--------+ + + + [...] | | | | | | [place] [address] | | | | | | [phone] | | | | | | | | +--------+---------+ + + + documented as of this encounter Visit Diagnoses Not on filedocumented in this encounter"
--- OUTSIDE RECORDS SUMMARY | ~2019-04-12 | XMS | Encounter Summary ---
Demographics + + + | Address | [address] | | | [place] [address] | + + + | Home Phone [...] | Author | [facility] | | | and [place]ana | + + + | Organization | [facility] [...] | | | | | [place] [address] | | + + + + + | Hunter Jackson | ECON | [place] | | + + + + + | Wes Jackson | ECON | [place], [place] | | + + + + + | Oziel Jackson | ECON | [place], [place] | | + + + + + Care Team Providers + +------+ + | Care Director Veterinary Name | Role | Phone | + +------+ + | Rodolfo Cruz MD | PCP | | + +------+ + Reason for Visit + + + | Reason | Comments | + + + | Labs Only | [facility] called to [facility] in [place] | + + + Encounter Details +--------+ [...] in | | | | [place] [address] | [address] | Mika) | | | | [phone] | | | +--------+ + + + [...] STREETER | | | | | | [address] | | | | | | | | +--------+---------+ + + + | 11/21/ | Office | Cardiology | Yesi, | | | 2019 | Visit | | JOSE ALBERTO Linder [address] | | | | | | [place], | | | | | | [place] [address] | | | | | | [phone] | | | | | | | | +--------+---------+ + + + documented as of this encounter Visit Diagnoses Not on filedocumented in this encounter"
--- OUTSIDE RECORDS SUMMARY | ~2019-04-12 | XMS | Encounter Summary ---
Demographics + + + | Address | [address] | | | [place] [address] | + + + | Home Phone [...] | [facility] | | | and [place]ana | + + + | Organization | [facility] [...] | | | | | [place] [address] | | + + + + + | Hunter Jackson | ECON | [place] | | + + + + + | Wes Jackson | ECON | [place], [place] | | + + + + + | Oziel Jackson | ECON | [place], [place] | | + + + + + Care Team Providers + +------+ + | Care Perfusionist Name | Role | Phone | + [...] + + | 05/23/ | Office | [facility] | Yesi, | Hypothyroidism, | | 2016 | Visit | CARDIOLOGY [address] | OJSE ALBERTO Linder [address] | unspecified | | | | [place], | [place], | hypothyroidism type | | | | [place] [address] | [place] [address] | (Primary Dx); | | | | [phone] | [phone] | Hyperlipidemia, | | | | | [...] 5 mg per day and did a [facility] blood pressure log that showed her blood [...] i s in a class I of [place] [employer] functional class. There is no [...] this chart may have been created with [employer] ([employer]) voice recognition software. Occasi onal wrong-word or [...] STREETER | | | | | | [address] | | | | | | | | +--------+---------+ + + + | 11/21/ | Office | Cardiology | Yesi, | | 2019 | Visit | | Niyah, VAULT WORKER [address] | | | | | | [place], | | | | | | [place] [address] | | | | | | [phone] | | | | | | | [...] + | [facility] | [address] | [place] | [phone] | | [facility] | | [address] | | | - LABORATORY | | [...] [address] | [place] | [phone] | | [facility] | | [address] | | | - LABORATORY | | [...]
--- OUTSIDE RECORDS SUMMARY | ~2019-04-12 | XMS | Encounter Summary ---
Demographics + + + | Address | [address] | | | [place] [address] | + + + | Home Phone [...] Author | [facility] | | | and [place]ana | + + + | Organization | [facility] | | [...] | | | | | [place] [address] | | + + + + + | Hunter Jackson | ECON | [place] | | + + + + + | Wes Jackson | ECON | [place], [place] | | + + + + + | Oziel Jackson | ECON | [place], [place] | | + + + + + Care Team Providers + +------+ + | Care Pershing Missile Crewmember Name | Role | Phone | + [...] Visit | ORTHOPEDIC SURGERY | MD [address] [facility] | syndrome, right | | | | [address] | [place] | (Primary Dx); [facility] | | | | [place] | [address] | arthritis | | | | [address] | | | | | | [phone] | | | +--------+---------+ + + + [...] 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
--- OUTSIDE RECORDS SUMMARY | ~2019-04-12 | XMS | Encounter Summary ---
Demographics + + + | Address | [address] | | | [place] [address] | + + + | Home Phone [...] + + | Author | [facility] | | | and [place]ana | + + + | Organization | [facility] | | [...] | | | | | [place] [address] | | + + + + + | Hunter Jackson | ECON | [place] | | + + + + + | Wes Jackson | ECON | [place], [place] | | + + + + + | Oziel Jackson | ECON | [place], [place] | | + + + + + Care Team Providers + +------+ + | Care Machine Finisher Name | Role | Phone | [...] + + | 04/20/ | Telephone | [facility] | Rodolfo Cruz, | Appointment | | 2013 | | MEDICINE [address] [place] [address] | MD [address] | | | | | [address] | [place] [address] | | | | | [place] [address] | [address] | | | | | [phone] | | | +--------+ + + + [...] | | | | | | [place] [address] | | | | | | [phone] | | | | | | | | +--------+---------+ + + + documented as of this encounter Visit Diagnoses Not on filedocumented in this encounter"
--- OUTSIDE RECORDS SUMMARY | ~2019-04-12 | XMS | Encounter Summary ---
Demographics + + + | Address | [address] | | | [place] [address] | + + + | Home Phone [...] | [facility] | | | and Ohana | + + + | Organization | [facility] | [...] [place] | | | | | [place] [address] | | + + + + + | Hunter Jackson | ECON | [place] | | + + + + + | Wes Jackson | ECON | [place], [place] | | + + + + + | Oziel Jackson | ECON | [place], [place] | | + + + + + Care Team Providers + +------+ + | Care Campground Caretaker Name | Role | Phone | [...] + | 01/29/ | Office | [facility] | Ulysses Jensen, | Complete tear of | | 2017 | Visit | ORTHOPEDIC SURGERY | [address] | right rotator cuff | | | | [address] | [place] | (Primary Dx); | | | | [place] | [address] | Localized primary | | | | [address] | | osteoarthritis of | | | | [phone] | | carpometacarpal | | | | [...] [place] | | | | | | [address] | | | | | | | | +--------+---------+ + + + | 11/21/ | Office | Cardiology | Yesi, | | | 2019 | Visit | | JOSE ALBERTO Linder [address] | | | | | | [place], | | | | | | [place] [address] | | | | | | [phone] | | | | | | | [...]
--- OUTSIDE RECORDS SUMMARY | ~2019-04-12 | XMS | Encounter Summary ---
Demographics + + + | Address | [address] | | | [place] [address] | + + + | Home Phone [...] | [facility] | | | and Ohana | + + + | Organization | [facility] | | [...] | | | | | [place] [address] | | + + + + + | Hunter Jackson | ECON | [place] | | + + + + + | Wes Jackson | ECON | [place], [place] | | + + + + + | Oziel Jackson | ECON | [place], [place] | | + + + + [...] + + | 04/01/ | Office | [facility] | Rodolfo Cruz, | Asthma (Primary Dx); | | 2012 | Visit | MEDICINE [place] | [address] | Hypertension; | | | | [address] | [place] | Hyperlipidemia; | | | | [place] | [address] | GERD; Osteoarthritis | | | | [address] | |Osteoarthritis | | | | [phone] | | | +--------+---------+ + + + [...] is no ear pain. She went to [place]. 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 | [address] | [place], [place] | [phone] | | [facility] | | [address] | | | - LABORATORY | | | | + + + + + | [facility] | [address] | [place], [place] | | | [facility] | | [address] | | | - LABORATORY | | [...] + + | [facility] [address] | [address] | [place] | [phone] | | [facility] | | [address] | | | - LABORATORY | | | | + + + + + | [facility] [facility] | [address] | [place] | | | [facility] | | [address] | | | - LABORATORY | | [...]
--- OUTSIDE RECORDS SUMMARY | ~2019-04-12 | XMS | Encounter Summary ---
Demographics + + + | Address | [address] | | | [place] [address] | + + + | Home Phone [...] Author | [facility] | | | and [place]ana | + + + | Organization | [facility] [...] | | | | | [place] [address] | | + + + + + | Hunter Jackson | ECON | [place] | | + + + + + | Wes Jackson | ECON | [place], [place] | | + + + + + | Oziel Jackson | ECON | [place], [place] | | + + + + + Care Team Providers + +------+ + | Care Water Gas Operator Name | Role | Phone | [...] + + | 12/14/ | Telephone | [facility] | Rodolfo Cruz, | Labs Only | | 2012 | | MEDICINE [place] | [address] | | | | | [address] | [place] | | | | | [place] | [address] | | | | | [address] | | | | | | [phone] | | | +--------+ + + + [...] | | | | | | [place] [address] | | | | | | [phone] | | | | | | | | +--------+---------+ + + + documented as of this encounter Visit Diagnoses Not on filedocumented in this encounter"
--- OUTSIDE RECORDS SUMMARY | ~2019-04-12 | XMS | Encounter Summary ---
Demographics + + + | Address | [address] | | | [place] [address] | + + + | Home Phone [...] | [facility] | | | and Ohana | + + + | Organization | [facility] | | [...] | | | | | [place] [address] | | + + + + + | Hunter Jackson | ECON | [place] | | + + + + + | Wes Jackson | ECON | [place], [place] | | + + + + + | Oziel Jackson | ECON | [place], [place] | | + + + + + Care Team Providers + +------+ + | Care Director Craft Center Name | Role | Phone | + [...] | [address] | | | | | [address] | | | | | | [phone] | | | +--------+--------+ + + + [...] | | | | | | [place] [address] | | | | | | [phone] | | | | | | | | +--------+---------+ + + + documented as of this encounter Visit Diagnoses Not on filedocumented in this encounter"
--- OUTSIDE RECORDS SUMMARY | ~2019-04-12 | XMS | Encounter Summary ---
Demographics + + + | Address | [address] | | | [place] [address] | + + + | Home Phone [...] + | Author | [facility] | | | and [place]ana | + + + | Organization | [facility] | | [...] [place] | | | | | [place] [address] | | + + + + + | Hunter Jackson | ECON | [place] | | + + + + + | Wes Jackson | ECON | [place], [place] | | + + + + + | Oziel Jackson | ECON | [place], [place] | | + + + + + Care Team Providers + +------+ + | Care Lettuce Cutter Name | Role | Phone | [...] | 11/25/ | Refill | [facility] | Irina Simms, | Medication Refill | | 2018 | | CARDIOLOGY [address] | MD [address] [place] | | | | | [place], | [place], | | | | | [place] [address] | [place] [address] | | | | | [phone] | [phone] | | | | | | | [...] STREETER | | | | | | [address] | | | | | | | | +--------+---------+ + + + | 11/21/ | Office | Cardiology | Yesi, | | | 2019 | Visit | | JOSE ALBERTO Linder [address] | | | | | | [place] | | | | | | [place] [address] | | | | | | [phone] | | | | | | | | +--------+---------+ + + + documented as of this encounter Visit Diagnoses Not on filedocumented in this encounter"
--- OUTSIDE RECORDS SUMMARY | ~2019-04-12 | XMS | Encounter Summary ---
Demographics + + + | Address | [address] | | | [place] [address] | + + + | Home Phone [...] Author | [facility] | | | and [place]ana | + + + | Organization | [facility] [...] | | | | | [place] [address] | | + + + + + | Hunter Jackson | ECON | [place] | | + + + + + | Wes Jackson | ECON | [place], [place] | | + + + + + | Oziel Jackson | ECON | [place], [place] | | + + + + + Care Team Providers + +------+ + | Care Solar System Designer Name | Role | Phone | + +------+ + | Rodolfo Cruz MD | PCP | | + +------+ + Encounter Details +--------+ + + + + | Date | Type | Department | Care Team | Description | +--------+ + + + + | 08/18/ | Abstract | [facility] [place] | Harsha Selby | | | 2014 | | PHYSIATRY [address] | MD Josh [address] | | | | | [place], | [place] | | | | | [place] [address] | [address] | | | | | [phone] | | | +--------+ + + + [...] | | | | | | [place] [address] | | | | | | [phone] | | | | | | | | +--------+---------+ + + + documented as of this encounter Visit Diagnoses Not on filedocumented in this encounter"
--- OUTSIDE RECORDS SUMMARY | ~2019-04-12 | XMS | Encounter Summary ---
Demographics + + + | Address | [address] | | | [place] [address] | + + + | Home Phone [...] + + | Author | [facility] | | | and Ohana | + + + | Organization | [facility] | [...] [place] | | | | | [place] [address] | | + + + + + | Hunter Jackson | ECON | [place] | | + + + + + | Wes Jackson | ECON | [place], [place] | | + + + + + | Oziel Jackson | ECON | [place], [place] | | + + + + + Care Team Providers + +------+ + | Care Statement Services Representative Name | Role | Phone | [...] | Therapy | Cervical | Bal, | [place] | | | Required | | radiculopath | Harsha Moreno MD | PHYSICAL | | | | | y DDD | [address] | THERAPY - | | | | | (degenerativ | [address] [place] | [place] | | | | | e disc | [facility] [place] | [address] | | | | | disease), | [address] | [place] [facility] | | | | | cervical | Phone: | 15 | | | | | [place] | [phone] | [place], [place] | | | | | stenosis of | Fax: | [address] | | | | | cervical | [phone] | Phone: | | | | | region | | [phone] | | | | | Stenosis of | | Fax: | | | | | cervical | | [phone] | | | | | spine | [...] [address] | radiculopathy | | | | [facility], | [address] [place] | (Primary Dx); [place] | | | | [place] [address] | [address] | (degenerative disc | | | | [phone] | | disease), cervical; | | | [...] | | | | | | [place] [address] | | | | | | [phone] | | | | | | | [...]
--- OUTSIDE RECORDS SUMMARY | ~2019-04-12 | XMS | Encounter Summary ---
Demographics + + + | Address | [address] | | | [place] [address] | + + + | Home Phone [...] | Author | [facility] | | | and [place] | + + + | Organization | [facility] | [...] | | | | | [place] [address] | | + + + + + | Hunter Jackson | ECON | [place] | | + + + + + | Wes Jackson | ECON | [place], [place] | | + + + + + | Oziel Jackson | ECON | [place], [place] | | + + + + + Care Team Providers + +------+ + | Care Needle Molder Name | Role | Phone | [...] | 10/20/ | Office | [facility] [place] [facility] | [facility] | Bronchitis (Primary | | 2016 | Visit | CARE [address] | Colby Cooper MD | Dx) | | | | [place] [address] | [address] | | | | | [address] | [place] | | | | | [phone] | [address] | | | | | | | [...] [place] | | | | | | [address] | | | | | | | | +--------+---------+ + + + | 11/21/ | Office | Cardiology | Yesi, | | | 2019 | Visit | | JOSE ALBERTO Linder [address] | | | | | | [place], | | | | | | [place] [address] | | | | | | [phone] | | | | | | | | +--------+---------+ + + + documented as of this encounter Visit Diagnoses + + | Diagnosis | + + | Bronchitis - Primary Bronchitis, not specified as acute or chronic | + + documented in this encounter
--- OUTSIDE RECORDS SUMMARY | ~2019-04-12 | XMS | Encounter Summary ---
Demographics + + + | Address | [address] | | | [place] [address] | + + + | Home Phone [...] | Author | [facility] | | | and [place] | + + + | Organization | [facility] [...] | | | | | [place] [address] | | + + + + + | Hunter Jackson | ECON | [place] | | + + + + + | Wes Jackson | ECON | [place], [place] | | + + + + + | Oziel Jackson | ECON | [place], [place] | | + + + + + Care Team Providers + +------+ + | Care Credit Director Name | Role | Phone | [...] | 11/13/ | Refill | [facility] | Rodolfo Cruz, | Medication Refill | | 2016 | | MEDICINE [address] | MD [address] | | | | | [place] | [place] [address] | | | | | [place] [address] | [address] | | | | | [phone] | | | +--------+--------+ + + + [...] | | | | | | [place] [address] | | | | | | [phone] | | | | | | | | +--------+---------+ + + + documented as of this encounter Visit Diagnoses Not on filedocumented in this encounter"
--- OUTSIDE RECORDS SUMMARY | ~2019-04-12 | XMS | Encounter Summary ---
Demographics + + + | Address | [address] | | | [place] [address] | + + + | Home Phone [...] [facility] | | | and Ohana | + + + | Organization | [facility] | [...] | | | | | [place] [address] | | + + + + + | Hunter Jackson | ECON | [place] | | + + + + + | Wes Jackson | ECON | [place], [place] | | + + + + + | Oziel Jackson | ECON | [place], [place] | | + + + + + Care Team Providers + +------+ + | Care Welfare Administrator Name | Role | Phone | [...] right (Primary Dx) | | | | [facility] | [place], [place] | | | | | [place] [address] | [address] | | | | | [phone] | | | +--------+ + + + [...] STREETER | | | | | | [address] | | | | | | | | +--------+---------+ + + + | 11/21/ | Office | Cardiology | Yesi, | | | 2019 | Visit | | JOSE ALBERTO Linder [address] | | | | | | [place] | | | | | | [place] [address] | | | | | | [phone] | | | | | | | [...] [address] | [place] | [phone] | | [facility] | | [address] | | | - LABORATORY | | | | + + + + + documented in this encounter Visit Diagnoses + + | Diagnosis | + + | Pulmonary nodule, right - Primary Solitary pulmonary nodule | + + documented in this encounter"
--- OUTSIDE RECORDS SUMMARY | ~2019-04-12 | XMS | Encounter Summary ---
Demographics + + + | Address | [address] | | | [place] [address] | + + + | Home Phone [...] | Author | [facility] | | | and [place]ana | + + + | Organization | [facility] | [...] | | | | | [place] [address] | | + + + + + | Gisele Jackson | ECON | [place] | | + + + + + | Wes Jackson | ECON | [place], [place] | | + + + + + | Oziel Jackson | ECON | [place], [place] | | + + + + + Care Team Providers + +------+ + | Care Movie Producer Name | Role | Phone | [...] Required | | Impaired | [address] [facility] | HOSPITAL | | | | | functional | AVE [place] | [address] | | | | | mobility, | [place] | AVE | | | | | balance, and | [address] | [place] | | | | | endurance | Phone: | [address] | | | | | | [phone] | Phone: | | | | | | Fax: | [phone] | | | | | | [phone] | Fax: | | | | | | | [phone] | +--------+ + + + + + Reason for Visit + + + | Reason | Comments | + + + | Referral | | + + + Encounter Details +--------+ + + + + | Date | Type | Department | Care Team | Description | +--------+ + + + + | 12/13/ | Telephone | [facility] | Rodolfo Cruz, | Referral | | 2015 | | MEDICINE [address] [place] [address] | MD [address] | | | | | [facility] | [facility] | | | | | [place] [address] | [address] | | | | | [phone] | | | +--------+ + + + [...] | | | | | | [place] [address] | | | | | | [phone] | | | | | | | [...]
--- OUTSIDE RECORDS SUMMARY | ~2019-04-12 | XMS | Encounter Summary ---
Demographics + + + | Address | [address] | | | [place] [address] | + + + | Home Phone [...] | Author | [facility] | | | and [place] | + + + | Organization | [facility] | [...] | | | | | [place] [address] | | + + + + + | Hunter Jackson | ECON | [place] | | + + + + + | Wes Jackson | ECON | [place], [place] | | + + + + + | Oziel Jackson | ECON | [place], [place] | | + + + + + Care Team Providers + +------+ + | Care Agate Setter Name | Role | Phone | [...] | ulcer | [address] | [address] | | | | | disease) | [address] [place] | Will [address] | | | | | | [place] | [address] | | | | | | [address] | [place] | | | | | | Phone: | [address] Phone: | | | | | | [phone] | [phone] | | | | | | Fax: | Fax: | | | | | | [phone] | [phone] | +--------+ + + + + + [...] bone | Rodolfo Reilly MD | [address] [place] | | | | | lesions on | [address] | [place], | | | | | xray | A[place] | [place] [address] | | | | | Procedures | [place], [place] | Phone: | | | | | CT Chest | [address] | [phone] | | | | | Abdomen | Phone: | Fax: | | | | | Pelvis w | [phone] | [phone] | | | | | Contrast | Fax: | | | | | | | [phone] | | +--------+--------+ + + + + Reason for Visit + + + | Reason | Comments | + + + | Follow-up | 3 week | + + + Encounter Details +--------+---------+ + + + | Date | Type | Department | Care Team | Description | +--------+---------+ + + + | 11/08/ | Office | [facility] | Rodolfo Cruz, | Lytic bone lesions | | 2013 | Visit | MEDICINE [address] [place] [address] | [address] | on xray (Primary | | | | Street [place] | [place], [place] | Dx); Back pain; | | | | [place] [address] | [id number] | Constipation; PUD | | | | [phone] | | (peptic ulcer | | | [...] [place] | | | | | | [address] | | | | | | | | +--------+---------+ + + + | 11/21/ | Office | Cardiology | Yesi, | | | 2019 | Visit | | JOSE ALBERTO Linder [address] | | | | | | [place], | | | | | | [place] [address] | | | | | | [phone] | | | | | | | [...] intravenous | | administration of 90 mL [id number] contrast. Oral contrast was administered. | | [...] + | MISCELLANEOUS LAB | | | [phone] | + +---------+ + + | MISCELANIOUS LAB | | | [phone] | + +---------+ + + documented in [...]
--- OUTSIDE RECORDS SUMMARY | ~2019-04-12 | XMS | Encounter Summary ---
Demographics + + + | Address | [address] | | | [place] [address] | + + + | Home Phone [...] | Author | [facility] | | | and [place] | + + + | Organization | [facility] | | [...] | | | | | [place] [address] | | + + + + + | Hunter Jackson | ECON | [place] | | + + + + + | Wes Jackson | ECON | [place], [place] | | + + + + + | Oziel Jackson | ECON | [place], [place] | | + + + + + Care Team Providers + +------+ + | Care Route Sales Trainee Name | Role | Phone | [...] + + | 08/18/ | Hospital | [facility] | Lauri Ayon | Inflammation of | | 2015 | Encounter | [facility] | MD Rodolfo [address] | blood vessels (HCC) | | | | ONCOLOGY CLINIC [address] [place] | (Primary Dx) | | | | [address] [place] | [place] [address] | | | | | [place] [address] | [phone] | | | | | [phone] | | | +--------+ + + + [...] STREETER | | | | | | [address] | | | | | | | | +--------+---------+ + + + | 11/21/ | Office | Cardiology | Yesi, | | | 2019 | Visit | | JOSE ALBERTO Linder [address] | | | | | | [place], | | | | | | [place] [address] | | | | | | [phone] | | | | | | | | +--------+---------+ + + + documented as of this encounter Visit Diagnoses + + | Diagnosis | + + | 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
--- OUTSIDE RECORDS SUMMARY | ~2019-04-12 | XMS | Encounter Summary ---
Demographics + + + | Address | [address] | | | [place] [address] | + + + | Home Phone [...] | | | | | [place] [address] | | + + + + + | Hunter Jackson | ECON | [place] | | + + + + + | Wes Jackson | ECON | [place], [place] | | + + + + + | Oziel Jackson | ECON | [place], [place] | | + + + + + Care Team Providers + +------+ + | Care Court Crier Name | Role | Phone | + [...] fasting labs prior | | | | [place], | [place], | to appt) | | | | [place] [address] | [place] [address] | | | | | [phone] | [phone] | | | | | | | [...] STREETER | | | | | | [address] | | | | | | | | +--------+---------+ + + + | 11/21/ | Office | Cardiology | Yesi, | | | 2019 | Visit | | JOSE ALBERTO Linder [address] | | | | | | [place], | | | | | | [place] [address] | | | | | | [phone] | | | | | | | [...] [address] | [place] | [phone] | | [facility] | | [address] | | | - LABORATORY | | | | + + + + + documented in this encounter Visit Diagnoses + + | Diagnosis | + + | Essential hypertension - Primary Unspecified essential hypertension | + + | Hyperlipidemia Other and unspecified hyperlipidemia | + + documented in this encounter"
--- OUTSIDE RECORDS SUMMARY | ~2019-04-12 | XMS | Encounter Summary ---
Demographics + + + | Address | [address] | | | [place] [address] | + + + | Home Phone [...] + | Author | [facility] | | | and [place] | + + + | Organization | [facility] | | [...] | | | | | [place] [address] | | + + + + + | Hunter Jackson | ECON | [place] | | + + + + + | Wes Jackson | ECON | [place], [place] | | + + + + + | Oziel Jackson | ECON | [place], [place] | | + + + + + Care Team Providers + +------+ + | Care Pelletizer Name | Role | Phone | + [...] + | 03/16/ | Telephone | [facility] | Rodolfo Cruz, | Results | | 2014 | | MEDICINE [facility] [address] | MD [address] | | | | | [place] | [place] [address] | | | | | [place] [address] | [address] | | | | | [phone] | | | +--------+ + + + [...] | | | | | | [place] [address] | | | | | | [phone] | | | | | | | | +--------+---------+ + + + documented as of this encounter Visit Diagnoses Not on filedocumented in this encounter"
--- OUTSIDE RECORDS SUMMARY | ~2019-04-12 | XMS | Encounter Summary ---
Demographics + + + | Address | [address] | | | [place] [address] | + + + | Home Phone [...] Author | [facility] | | | and [place] | + + + | Organization | [facility] | | | and [place] | + + + | Address | Unknown | + + + | Phone | Unavailable | + + + Support + + + + + | Name | Relationship | Address | Phone | + + + + + | Osmin Jacskon | ECON | [address] | | | | | [place] [address] | | + + + + + | Gisele Jackson | ECON | [place] | | + + + + + | Wes Jackson | ECON | [place], [place] | | + + + + + | Oziel Jackson | ECON | [place], [place] | | + + + + + Care Team Providers + +------+ + | Care Lever Operator Name | Role | Phone | [...] | | sprain and | [address] [facility] | HOSPITAL | | | | | strain, | AVE [place] | [address] | | | | | initial | [place] | AVE | | | | | encounter | [address] | [place] | | | | | | Phone: | [address] | | | | | | [phone] | Phone: | | | | | | Fax: | [phone] | | | | | | [phone] | | +--------+ + + + + + Reason for Visit + + + | Reason | Comments | + + + | ED Follow-up | | + + + Encounter Details +--------+---------+ + + + | Date | Type | Department | Care Team | Description | +--------+---------+ + + + | 09/27/ | Office | [facility] | Rodolfo Cruz, | Thoracic sprain and | | 2013 | Visit | MEDICINE [address] [place] [address] | [address] | strain, initial | | | | Street [place] | [place] [address] | encounter (Primary | | | | [place] [address] | [address] | Dx) | | | | [phone] | | | +--------+---------+ + + + [...] [place] | | | | | | [address] | | | | | | | | +--------+---------+ + + + | 11/21/ | Office | Cardiology | Yesi, | | | 2019 | Visit | | JOSE ALBERTO Linder [address] | | | | | | [place], | | | | | | [place] [address] | | | | | | [phone] | | | | | | | | +--------+---------+ + + + + + +--------+ + + | Name | Type | Priori | Associated Diagnoses | Order Schedule | | | | ty | | | + + +--------+ + + | [place] | Outpatient | Routin | Thoracic sprain [...]
--- OUTSIDE RECORDS SUMMARY | ~2019-04-12 | XMS | Encounter Summary ---
Demographics + + + | Address | [address] | | | [place] [address] | + + + | Home Phone [...] | Author | [facility] | | | and [place] | + + + | Organization | [facility] | | [...] | | | | | [place] [address] | | + + + + + | Hunter Jackson | ECON | [place] | | + + + + + | Wes Jackson | ECON | [place], [place] | | + + + + + | Oziel Jackson | ECON | [place], [place] | | + + + + + Care Team Providers + +------+ + | Care Mechanical Engineering Professor Name | Role | Phone | + +------+ + | Sugar Cruz MD | PCP | | + +------+ + Reason for Visit + + + | Reason | Comments | + + + | Follow-up | recurrent epistaxis,last one was Friday,did go to the ER in | | | [place] | + + + Evaluate & Treat [...] [place], | | | | | | [address] | [place] [address] | | | | | | Phone: | Phone: | | | | | | [phone] | [phone] | | | | | | Fax: | Fax: | | | | | | [phone] | [phone] | +--------+ + + + + + [...] [place], [place] | | | | | [place], [place] | [address] | | | | | [address] | | | | | | [phone] | Zion Valencia MD | | | | | | [address] | | | | | | [address] [place], [place] | | | | | | [address] | | | | | | | [...] MD - 08/31/2014 11:06 AM PDT [facility] [address] [place] [address] OFFICE NOTE ZION VALENCIA MD Patient: JACLYN JACKSON Admitting: MR #: [id number] LOC: PT TYPE: Adm Date: 08/31/2014 : 1935 DATE OF VISIT: 08/31/2014. The patient has continued to have further problems with epistaxis. She was seen back in [facility]. She was treated in the emergency room [...] 08/31/2014 11:06:56 Transcribed on 08/31/2014 11:19:[address] [facility] job# [id number] Confirmation #: [id number] cc: SUGAR CRUZ MD [facility] - 08/31/2014 11:03 AM PDTSee dictation # [id number] signed by Zion Valencia MD at 08/31/2014 [...] | | | | | | [place] [address] | | | | | | [phone] | | | | | | | [...]
--- OUTSIDE RECORDS SUMMARY | ~2019-04-12 | XMS | Encounter Summary ---
Demographics + + + | Address | [address] | | | [place] [address] | + + + | Home Phone [...] | Author | [facility] | | | and [place] | + + + | Organization | [facility] [...] | | | | | [place] [address] | | + + + + + | Hunter Jackson | ECON | [place] | | + + + + + | Wes Jackson | ECON | [place], [place] | | + + + + + | Oziel Jackson | ECON | [place], [place] | | + + + + + Care Team Providers + +------+ + | Care Sales Service Assistant Name | Role | Phone [...] + + | 08/18/ | Hospital | [facility] | Lauri Ayon | Inflammation of | | 2015 | Encounter | [facility] | MD Rodolfo [address] | blood vessels (HCC) | | | | ONCOLOGY CLINIC [address] [place] | (Primary Dx) | | | | [address] [place] [address] | [place] [address] | | | | | [place] [address] | [phone] | | | | | [phone] | | | +--------+ + + + [...] STREETER | | | | | | [address] | | | | | | | | +--------+---------+ + + + | 11/21/ | Office | Cardiology | Yesi, | | | 2019 | Visit | | JOSE ALBERTO Linder [address] | | | | | | [place], | | | | | | [place] [address] | | | | | | [phone] | | | | | | | | +--------+---------+ + + + documented as of this encounter Visit Diagnoses + + | Diagnosis | + + | 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
--- OUTSIDE RECORDS SUMMARY | ~2019-04-12 | XMS | Encounter Summary ---
Demographics + + + | Address | [address] | | | [place] [address] | + + + | Home Phone [...] | Author | [facility] | | | and [place] | + + + | Organization | [facility] [...] | | | | | [place] [address] | | + + + + + | Hunter Jackson | ECON | [place] | | + + + + + | Wes Jackson | ECON | [place], [place] | | + + + + + | Oziel Jackson | ECON | [place], [place] | | + + + + + Care Team Providers + +------+ + | Care Theatre Instructor Name | Role | Phone | [...] | | | | [place] | [address] | | | | | [address] | | | | | | [phone] | | | +--------+---------+ + + + [...] W | | | | | | [place], | | | | | | [place] [address] | | | | | | [phone] | | | | | | | [...] | | | | | Infiltration, ONCE, Roxy 07/23/12 | | AM PDT | | | | | at 1145, For 1 dose | | | | | | + +-------+ +-------+---+---+ +---+---+ | | | +---+---+ documented in this encounter
--- OUTSIDE RECORDS SUMMARY | ~2019-04-12 | XMS | Encounter Summary ---
Demographics + + + | Address | [address] | | | [place] [address] | + + + | Home Phone [...] Author | [facility] | | | and Ohana | + + + | Organization | [facility] [...] | | | | | [place] [address] | | + + + + + | Hunter Jackson | ECON | [place] | | + + + + + | Wes Jackson | ECON | [place], [place] | | + + + + + | Oziel Jackson | ECON | [place], [place] | | + + + + + Care Team Providers + +------+ + | Care Poured Pipe Maker Name | Role | Phone | [...] | (Primary Dx); | | | | [place], | [place], | Valvular heart | | | | [place] [address] | [place] [address] | disease; Essential | | | | [phone] | [phone] | hypertension | | | | | [...] She is in a class I of [employer] functional class . There is [...] this chart may have been created with [employer] voice recognition software. Occasi onal wrong-word or [...] | | | | | | [place] [address] | | | | | | [phone] | | | | | | | [...]
--- OUTSIDE RECORDS SUMMARY | ~2019-04-12 | XMS | Encounter Summary ---
Demographics + + + | Address | [address] | | | [place] [address] | + + + | Home Phone [...] Author | [facility] | | | and [place]ana | + + + | Organization | [facility] | [...] [place] | | | | | [place] [address] | | + + + + + | Hunter Jackson | ECON | [place] | | + + + + + | Wes Jackson | ECON | [place], [place] | | + + + + + | Oziel Jackson | ECON | [place], [place] | | + + + + + Care Team Providers + +------+ + | Care Biotechnologist Name | Role | Phone | + [...] | | | atherosclero | | [address] | | | | | sis of | | [place], | | | | | unspecified | | [place] [address] | | | | | type of | | Phone: | | | | | vessel, | | [phone] | | | | | [place] or | | Fax: | | | | | graft | | [phone] | | | | | Coronary | | | | | | | atherosclero | | | | | | | sis of | | | | | | | unspecified | | | | | | | type of | | | | | | | vessel, | | | | | | | [place] or | | | | | | | graft | | | | | | | Procedures | | | | | | | NC ENDOSCOPY | | | | | | | | | | | | | | W/VIDEO-ASST | | | | | | | VEIN | | | | | | | HARVEST,CABG | | | | | | | NC CABG, | | | | | | | ARTERY-VEIN, | | | | | | | FOUR NC | | | | | | | CABG, | | | | | | | ARTERIAL, | | | | | | | SINGLE | | | +--------+--------+ + + + + Encounter Details +--------+ + + + + | Date | Type | Department | Care Team | Description | +--------+ + + + + | 10/31/ | Hospital | [facility] | Amna Benavides, | | | 2017 | Encounter | [facility] | PA-C [address] | | | | | LABORATORY [address] | [address] [place], [place] | | | | | [address] [place] | [address] | | | | | [address] | | | | | | [phone] | | | +--------+ + + + [...] STREETER | | | | | | [address] | | | | | | | | +--------+---------+ + + + | 11/21/ | Office | Cardiology | Yesi, | | | 2019 | Visit | | JOSE ALBERTO Linder [address] | | | | | | [place], | | | | | | [place] [address] | | | | | | [phone] | | | | | | | | +--------+---------+ + + + documented as of this encounter Visit Diagnoses Not on filedocumented in this encounter"
--- OUTSIDE RECORDS SUMMARY | ~2019-04-12 | XMS | Encounter Summary ---
Demographics + + + | Address | [address] | | | [place] [address] | + + + | Home Phone [...] | Author | [facility] | | | and [place] | + + + | Organization | [facility] | [...] | | | | | [place] [address] | | + + + + + | Hunter Jackson | ECON | [place] | | + + + + + | Wes Jackson | ECON | [place], [place] | | + + + + + | Oziel Jackson | ECON | [place], [place] | | + + + + + Care Team Providers + +------+ + | Care Clerical Support Name | Role | Phone | + [...] | disc disease), | | | | [place], | [facility], | lumbar (Primary Dx) | | | | [place] [address] | [place] [address] | | | | | [phone] | [phone] | | | | | | | [...] | | | | | | [place] [address] | | | | | | [phone] | | | | | | | | +--------+---------+ + + + documented as of this encounter Visit Diagnoses + + | Diagnosis | + + | DDD (degenerative disc disease), lumbar - Primary Degeneration of lumbar or | | lumbosacral intervertebral disc | + + documented in this encounter"
--- OUTSIDE RECORDS SUMMARY | ~2019-04-12 | XMS | Encounter Summary ---
Demographics + + + | Address | [address] | | | [place] [address] | + + + | Home Phone | | + + + | Preferred Language | Unknown | + + + | Marital Status | Single | + + + | Latter-Day Affiliation | Unknown | + + + | Race | Unknown | + + + | Ethnic Group | Other Race | + + + Author + + + | Author | [facility] | + + + | Organization | [facility] | + + + | Address | Unknown | + + + | Phone | Unavailable | + + + Support + + +---------+ + | Name | Relationship | Address | Phone | + + +---------+ + | None None | ECON | Unknown | Unavailable | + + +---------+ + Care Team Providers + +------+ + | Care Cognos Bi Developer Name | Role | Phone | + +------+ + PCP | Unavailable | + +------+ + Encounter Details +--------+ + + + + | Date | Type | Department | Care Team | Description | +--------+ + + + + | 04/17/ | Ancillary | [facility] Faculty | | | | 2004 | Registratio | Practice [address] | | | | | n | [facility] | | | | | | [place] [address] | | | | | | [phone] | | | +--------+ + + + [...]
--- OUTSIDE RECORDS SUMMARY | ~2019-04-12 | XMS | Encounter Summary ---
Demographics + + + | Address | [address] | | | [place] [address] | + + + | Home Phone [...] | Author | [facility] | | | and Ohana | + + + | Organization | [facility] | | | [...] | | | | | [place] [address] | | + + + + + | Hunter Jackson | ECON | [place], [place] | | + + + + + | Wes Jackson | ECON | [place], [place] | | + + + + + | Oziel Jackson | ECON | [place], [place] | | + + + + + Care Team Providers + +------+ + | Care Deburring Technician Name | Role | Phone | [...] [address] | | | | | [place], | [place], | | | | | [place] [address] | [place] [address] | | | | | [phone] | [phone] | | | | | | | [...] | | | | | | [place] [address] | | | | | | [phone] | | | | | | | [...] Comment | + + | [facility] | + + + +---------+ [...] Comment | + + | [facility] | + + + +---------+ + [...] Comment | + + | [facility] | + + + +---------+ + [...] Comment | + + | [facility] | + + + +---------+ + [...] Comment | + + | [facility] | + + + +---------+ + [...] Comment | + + | [facility] | + + + +---------+ + [...] Comment | + + | [facility] | + + + +---------+ + [...] Comment | + + | [facility] | + + + +---------+ + [...] Comment | + + | [facility] | + + + +---------+ + [...] Comment | + + | [facility] | + + + +---------+ + [...] Comment | + + | [facility] | + + + +---------+ + [...] Comment | + + | [facility] | + + + +---------+ + [...] Comment | + + | [facility] | + + + +---------+ + [...] Comment | + + | [facility] | + + + +---------+ + [...] Comment | + + | [facility] | + + + +---------+ + [...] Comment | + + | [facility] | + + + +---------+ + [...] Comment | + + | [facility] | + + + +---------+ + [...] Comment | + + | [facility] | + + + +---------+ + [...] Comment | + + | [facility] | + + + +---------+ + [...] Comment | + + | [facility] | + + + +---------+ + [...]
--- OUTSIDE RECORDS SUMMARY | ~2019-04-12 | XMS | Encounter Summary ---
Demographics + + + | Address | [address] | | | [place] [address] | + + + | Home Phone [...] + + | Author | [facility] | | | and Ohana | + + + | Organization | [facility] | [...] | | | | | [place] [address] | | + + + + + | Hunter Jackson | ECON | [place] | | + + + + + | Wes Jackson | ECON | [place], [place] | | + + + + + | Oziel Jackson | ECON | [place], [place] | | + + + + + Care Team Providers + +------+ + | Care Lab Coordinator Name | Role | Phone | [...] Dx); | | | | [address] | [place] | Rotator cuff | | | | [place] | [address] | syndrome of right | | | | [address] | | shoulder | | | | [phone] | | | +--------+---------+ + + + [...] [place] | | | | | | [address] | | | | | | | | +--------+---------+ + + + | 11/21/ | Office | Cardiology | Yesi, | | | 2019 | Visit | | JOSE ALBERTO Linder [address] | | | | | | [place], | | | | | | [place] [address] | | | | | | [phone] | | | | | | | [...] PDT | | | | | ONCE, [facility] 11/30/15 at 1200, For 1 | | | | | | | dose, Shake well. Not for IV | | | | | | | use., | | | | | | + +-------+ +-------+---+ + +---+---+ | | | +---+---+ documented in this encounter
--- OUTSIDE RECORDS SUMMARY | ~2019-04-12 | XMS | Encounter Summary ---
Demographics + + + | Address | [address] | | | [place] [address] | + + + | Home Phone [...] Author | [facility] | | | and Ohana | + + + | Organization | [facility] | | | | | [place] [address] | | + + + + + | Hunter Jackson | ECON | [place] | | + + + + + | Wes Jackson | ECON | [place], [place] | | + + + + + | Oziel Jackson | ECON | [place], [place] | | + + + + + Care Team Providers + +------+ + | Care Investigation Division Lieutenant Name | Role | Phone | + +------+ + | Rodolfo Cruz MD | PCP | | + +------+ + Encounter Details +--------+ + + + + | Date | Type | Department | Care Team | Description | +--------+ + + + + | 01/03/ | Hospital | [facility] | Rodolfo Cruz, | Urticaria, chronic | | 2016 | Encounter | [facility] | MD [address] | | | | | [address] [place] | [place], [place] | | | | | [place] | [address] | | | | | [address] | | | | | | [phone] | | | +--------+ + + + [...] + + + +---------+ + + | [place] 3 1000 MG | Take by mouth. [...] [place] | | | | | | [address] | | | | | | | | +--------+---------+ + + + | 11/21/ | Office | Cardiology | Yesi, | | | 2019 | Visit | | JOSE ALBERTO Linder [address] | | | | | | [place] | | | | | | [place] [address] | | | | | | [phone] | | | | | | | [...] [address] | [place] | [phone] | | [facility] | | [address] | | | - LABORATORY | | [...] [place] | | | | | | [address] | | | | + + + [...] [address] | [place] [address] | [phone] | + + + + + DNA [...] | | | | | [place] [address] | | | | + + + [...] [address] | [place] [address] | [phone] | + + + + + CBC [...] [address] | [place] | [phone] | | [facility] | | [address] | | | - LABORATORY | | | | + + + + + documented in this encounter Visit Diagnoses + + | Diagnosis | + + | Urticaria, chronic Other specified urticaria | + + documented in this encounter"
--- OUTSIDE RECORDS SUMMARY | ~2019-04-12 | XMS | Encounter Summary ---
Demographics + + + | Address | [address] | | | [place] [address] | + + + | Home Phone [...] Author | [facility] | | | and Ohana | + + + | Organization | [facility] [...] | | | | | [place] [address] | | + + + + + | Hunter Jackson | ECON | [place] | | + + + + + | Wes Jackson | ECON | [place], [place] | | + + + + + | Oziel Jackson | ECON | [place], [place] | | + + + + + Care Team Providers + +------+ + | Care Land Leasing Examiner Name | Role | Phone | [...] + | 03/01/ | Refill | [facility] | Rodolfo Cruz, | Medication Refill | | 2013 | | MEDICINE [address] | MD [address] | | | | | [place] | [place] | | | | | [place] [address] | [address] | | | | | [phone] | | | +--------+--------+ + + + [...] | | | | | | [place] [address] | | | | | | [phone] | | | | | | | | +--------+---------+ + + + documented as of this encounter Visit Diagnoses + + | Diagnosis | + + | Back pain - Primary Backache, unspecified | + + documented in this encounter"
--- OUTSIDE RECORDS SUMMARY | ~2019-04-12 | XMS | Encounter Summary ---
Demographics + + + | Address | [address] | | | [place] [address] | + + + | Home Phone [...] | Author | [facility] | | | and Ohana | + + + | Organization | [facility] | [...] | | | | | [place] [address] | | + + + + + | Hunter Jackson | ECON | [place] | | + + + + + | Wes Jackson | ECON | [place], [place] | | + + + + + | Oziel Jackson | ECON | [place], [place] | | + + + + + Care Team Providers + +------+ + | Care Surface Mount Technology Operator Name | Role | Phone | + +------+ + | Rodolfo Cruz MD | PCP | | + +------+ + Encounter Details +--------+ + + + + | Date | Type | Department | Care Team | Description | +--------+ + + + + | 10/25/ | Hospital | [facility] | Rodolfo Cruz, | History of | | 2014 | Encounter | [facility] | MD [address] | hepatitis; Pulmonary | | | | [address] [place] | [place], [place] | nodules; Other | | | | [place], [place] | [address] | specified | | | | [address] | | hypothyroidism; | | | | [phone] | | Essential | | | | [...] [place] | | | | | | [address] | | | | | | | | +--------+---------+ + + + | 11/21/ | Office | Cardiology | Yesi, | | | 2020 | Visit | | JOSE ALBERTO Linder [address] | | | | | | [place], | | | | | | [place] [address] | | | | | | [phone] | | | | | | | [...] | | | Sensitive | | | [facility] | | | | [...] [address] | [place] | [phone] | | [facility] | | [address] | | | - LABORATORY | | [...] [address] | [place] | [phone] | | [facility] | | [address] | | | - LABORATORY | | [...] + | [facility] | [address] | [place] | [phone] | | [facility] | | [address] | | | - LABORATORY | | [...] [address] | [place] | [phone] | | [facility] | | [address] | | | - LABORATORY | | [...] mg/dL | [facility] | | | | | | MEDICAL | | | | | | CENTER - | | | | | | LABORATORY | | + + + + + + | eGFR if not | >60Comment: GLOMERULAR | >=60 | [facility] | | | | FILTRATION | mL/min/1.73m2 | [facility] | | | TOGOLESE | RATE,ESTIMATED | | MEDICAL | | | | mL/min/1.10i6Hspe than | | CENTER - | | [...] | 8.9 | 8.3 - 10.5 | [facility] | | | | | mg/dL | [facility] | | | | | | MEDICAL [...] [address] | [place] | [phone] | | [facility] | | [address] | | | - LABORATORY | | [...] | LAB [facility] | | | | [id number] or greater | | | | | [...] | | | | | [place] [address] | | | | + + + [...] [place] | | | | | | [address] | | | | + + + + + + + + | Specimen | + + | Blood specimen | | (specimen) | + + + + + + + | Performing | Address | City/State/Zipcode | Phone Number | | Organization | | | | + + + + + | [facility] | [address] | [place] [address] | [phone] | + + + + + documented [...]
--- OUTSIDE RECORDS SUMMARY | ~2019-04-12 | XMS | Encounter Summary ---
Demographics + + + | Address | [address] | | | [place] [address] | + + + | Home Phone [...] | | | | | [place] [address] | | + + + + + | Hunter Jackson | ECON | [place] | | + + + + + | Wes Jackson | ECON | [place], [place] | | + + + + + | Oziel Jackson | ECON | [place], [place] | | + + + + + Care Team Providers + +------+ + | Care Brim Flexer Name | Role | Phone | + [...] | | | | | | | [address] | | | | | | | Phone: | | | | | | | [phone] | | | | | | | Fax: | | | | | | | [phone] | | +--------+ + + + + + Reason for Visit + + + | Reason | Comments | + + + | Referral | PT in Indian | + + + Encounter Details +--------+ + + + + | Date | Type | Department | Care Team | Description | +--------+ + + + + | 10/17/ | Telephone | [facility] | Rodolfo Cruz, | Referral (PT in | | 2015 | | MEDICINE [address] | MD Raya RASHID | M[place]) | | | | [facility] | [place], [place] | | | | | [place] [address] | [address] | | | | | [phone] | | | +--------+ + + + [...] | | | | | | [place] [address] | | | | | | [phone] | | | | | | | [...]
--- OUTSIDE RECORDS SUMMARY | ~2019-04-12 | XMS | Encounter Summary ---
Demographics + + + | Address | [address] | | | [place] [address] | + + + | Home Phone [...] | Author | [facility] | | | and Ohana | + + + | Organization | [facility] | [...] | | | | | [place] [address] | | + + + + + | Hunter Jackson | ECON | [place] | | + + + + + | Wes Jackson | ECON | [place], [place] | | + + + + + | Oziel Jackson | ECON | [place], [place] | | + + + + + Care Team Providers + +------+ + | Care Dinkey Brakeman Name | Role | Phone | + +------+ + | Rodolfo Cruz MD | PCP | | + +------+ + Encounter Details +--------+ + + + + | Date | Type | Department | Care Team | Description | +--------+ + + + + | 05/23/ | Hospital | [facility] | [place], | Hypothyroidism, | | 2016 | Encounter | [facility] | JOSE ALBERTO Linder [address] | unspecified | | | | [address] [place] | [place], | hypothyroidism type | | | | [place], [place] | [place] [address] | | | | | [address] | [phone] | | | | | [phone] | | | +--------+ + + + [...] | | | | | | [place] [address] | | | | | | [phone] | | | | | | | [...] + | [facility] | [address] | [place] | [phone] | | [facility] | | [address] | | | - LABORATORY | | [...] + | [facility] | [address] | [place] | [phone] | | [facility] | | [address] | | | - LABORATORY | | | | + + + + + documented in this encounter Visit Diagnoses + + | Diagnosis | + + | Hypothyroidism, unspecified hypothyroidism type | + + documented in this encounter"
--- OUTSIDE RECORDS SUMMARY | ~2019-04-12 | XMS | Encounter Summary ---
Demographics + + + | Address | [address] | | | [place] [address] | + + + | Home Phone [...] | Author | [facility] | | | and Ohana | + + + | Organization | [facility] | | [...] | | | | | [place] [address] | | + + + + + | Hunter Jackson | ECON | [place] | | + + + + + | Wes Jackson | ECON | [place], [place] | | + + + + + | Oziel Jackson | ECON | [place], [place] | | + + + + + Care Team Providers + +------+ + | Care Business Instructor Name | Role | Phone | [...] | | | pain, right | | [address] [place] | | | | | upper | | [place], [place] | | | | | quadrant | | [address] | | | | | Back pain | | Phone: | | | | | Hyperlipidem | | [phone] | | | | | ia Upper GI | | Fax: | | | | | bleeding | | [phone] | | | | | Hypothyroidi | [...] + + | 11/15/ | Surgery | [facility] | Lauri Garrison MD | EGD * IP RM: [id number] * | | 2013 | | MED CTR MP INTRA OP | [address], [place] | | | | | [address] | [address] [place] | | | | | [place] | [id number] | | | | | [address] | | | | | | [phone] | | | +--------+---------+ + + + [...] might be different f rom the original. [facility] Service: Hospitalist Physician Discharge Summary Pt: Soumya Jackson AGE/SEX: 78 y.o. female ROOM: [address] [place] [address] PCP: Rodolfo Cruz : 1935 Admit date: [...] upper GI bleed(duodenal ulcers) leading to ac akhiok blood loss anemia. 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 You may get these medications from any [...] might be different f rom the original. [facility] Service: Hospitalist Progress Note Pt: Soumya Jackson AGE/SEX: 78 y.o. female ROOM: 428/428-01 : 1935 PCP: Rodolfo Cruz ADMIT DATE: 11/14/2013 TODAY'S DATE: 11/16/2013 Hospital Day/Hospital Course: LOS: 2 days 78 years old female past medical history of hypothyroidism, benign hypertension, hyperlipid kirti came to the hospital with weakness due to upper GI bleed(duodenal ulcers) leading to ac akhiok blood loss anemia. She is status post [...] mg/hr (11/16/13 0651) PRN Medications albuterol, [COMPLETED] tjjkdxkm-weepaufznn-jeehwatryp, diphenhydrAMINE, HYDROcodone-acetami nophen, HYDROmorphone, LORazepam, [COMPLETED] meperidine, [...] upper GI bleed(duodenal ulcers) leading to ac akhiok blood loss anemia. She is status post [...] PM PDT HOSPITALIST PROGRESS NOTE on 11/15/2013 [facility] Pt. Name/Age/: Soumya Jackson 78 y.o. 1935 Med. Record Number: [id number] Primary Care Physician: Rodolfo Cruz Date of [...] -- No results found for this basename: PHART:3,PO2ART:3,MIG1IED:3,M0NAQPLX:3,BEART:[address] 168 hours No [...] Once pantoprazole (PROTONIX) infusion 8 mg/hr (11/15/13 6296) albuterol, diphenhydrAMINE, HYDROcodone-acetaminophen, HYDROmorphone, LORazepam, ondansetr on, ondansetron DVT Prophylaxis Contraindicated CMS Documentation I expect this patient will be hospitalized for greater than 2-midnights and expect the post -hospital plan to be discharge to home or to an adult foster home. Electronically signed by: Peng Godinez MD, 11/15/2013 12:08 [facility] Portions of this chart may have been created withPhotetica voice recognition software. Occas ional wrong-word or [...] [place] | | | | | | [address] | | | | | | | | +--------+---------+ + + + | 11/21/ | Office | Cardiology | Yesi, | | | 2019 | Visit | | JOSE ALBERTO Linder [address] | | | | | | [place], | | | | | | [place] [address] | | | | | | [phone] | | | | | | | [...] + + + | UNIT # | [id number] | | [facility] | | | | [...] [facility] | | | [facility] | | [address] | | | - BLOOD BANK | [...] + + + | UNIT # | [id number] | | [facility] | | | | [...] ST. | [address] | [place] | | | [facility] | | [address] | | | - BLOOD BANK | [...] + | [facility] | [address] | [place], [place] | [phone] | | [facility] | | [address] | | | - LABORATORY | | | | + + + + + | [facility] | [address] | [place], [place] | | | [facility] | | [address] | | | - LABORATORY | | [...] 7 | 7 - 18 mg/dL | [facility] | | | | | | [facility] | | | | | | MEDICAL | | | | | | CENTER - | | | | | | LABORATORY | | + + + + + + | Creatinine | 0.74 | 0.60 - 1.30 | [facility] | | | | | mg/dL | [facility] | | | | | | MEDICAL | | | | | | CENTER - | | | | | | LABORATORY | | + + + + + + | eGFR if not | >60Comment: GLOMERULAR | >=60 | [facility] | | | | FILTRATION | mL/min/1.73m2 | [facility] | | | TUNISIAN | RATE,ESTIMATED | | MEDICAL | | | | mL/min/1.84q8Bzxz than | | CENTER - | | [...] + | [facility] | [address] | [place] | [phone] | | [facility] | | [address] | | | - LABORATORY | | | | + + + + + | [facility] | [address] | [place] | | | [facility] | | [address] | | | - LABORATORY | | [...] | | | | g/dL | [facility] | | | | [...] [address] | [place] | [phone] | | [facility] | | [address] | | | - LABORATORY | | | | + + + + + | [facility] | [address] | [place] | | | [facility] | | [address] | | | - LABORATORY | | [...] | | | | | | [facility] | | | [...] [address] | [place] | [phone] | | [facility] | | [address] | | | - LABORATORY | | | | + + + + + | [facility] | [address] | [place] | | | [facility] | | [address] | | | - LABORATORY | | [...] + | [facility] | [address] | [place] | [phone] | | [facility] | | [address] | | | - LABORATORY | | | | + + + + + | [facility] | [address] | [place] | | | [facility] | | [address] | | | - LABORATORY | | [...] + | [facility] | [address] | [place], [place] | [phone] | | [facility] | | [address] | | | - LABORATORY | | | | + + + + + | [facility] | [address] | [place], [place] | | | [facility] | | [address] | | | - LABORATORY | | [...] 10 | 7 - 18 mg/dL | [facility] | | | | | | [facility] | | | | | | MEDICAL | | | | | | CENTER - | | | | | | LABORATORY | | + + + + + + | Creatinine | 0.60 | 0.60 - 1.30 | [facility] | | | | | mg/dL | [facility] | | | | | | MEDICAL | | | | | | CENTER - | | | | | | LABORATORY | | + + + + + + | eGFR if not | >60Comment: GLOMERULAR | >=60 | [facility] | | | | FILTRATION | mL/min/1.73m2 | [facility] | | | TUNISIAN | RATE,ESTIMATED | | MEDICAL | | | | mL/min/1.22g5Qtfe than | | CENTER - | | [...] + | [facility] | [address] | [place] | [phone] | | [facility] | | [address] | | | - LABORATORY | | | | + + + + + | [facility] | [address] | [place] | | | [facility] | | [address] | | | - LABORATORY | | [...] + | [facility] | [address] | [place] | [phone] | | [facility] | | [address] | | | - LABORATORY | | | | + + + + + | [facility] | [address] | [place] | | | [facility] | | [address] | | | - LABORATORY | | [...] + | [facility] | [address] | [place], [place] | [phone] | | [facility] | | [address] | | | - LABORATORY | | | | + + + + + | [facility] | [address] | [place], [place] | | | [facility] | | [address] | | | - LABORATORY | | | | + + + + + EGD (11/15/2013 2:09 PM PDT) + + | Specimen | + + | | + + + + --+ | Narrative | Performed A t | + + --+ | | [facility] | | GastroenterologyPatient Name: Soumya Vazcedure Date: 11/15/2013 2:09 | [facility] | | PMMRN: [id number] #: [id number] of : 8Admit | | | Type: InpatientAge: 78Room: [facility] 01Gender: FemaleNote Status: | | | FinalizedAttending MD: Lauri Garrison, [facility]cedure: Upper | | | GI endoscopyIndications: [...] the nurse | | | and the computer service technician in the 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 Mental Status [...] On: 11/15/2013 2:09 PM | | | [facility] [address] [facility] | | | [place] [address] | | | - Normal duodenal bulb, [...] On: 11/15/2013 2:09 PM | | | [facility] [place], [place] | | | [address] | | + + --+ + + [...] [address] | [place] [facility] | [phone] | | [facility] | | [address] | | | - LABORATORY | | | | + + + + + | [facility] | [address] | [place] | | | [facility] | | [address] | | | - LABORATORY | | [...] mL/min/1.73m2 | [facility] | | | TUNISIAN | RATE,ESTIMATED | | MEDICAL | | | | mL/min/1.42r0Dnzf than | | CENTER - | | [...] + | [facility] | [address] | [place] | [phone] | | [facility] | | [address] | | | - LABORATORY | | | | + + + + + | [facility] | [address] | [place] | | | [facility] | | [address] | | | - LABORATORY | | [...] + | [facility] | [address] | [place], [place] | [phone] | | [facility] | | [address] | | | - LABORATORY | | | | + + + + + | [facility] | [address] | [place], [place] | | | [facility] | | [address] | | | - LABORATORY | | [...] + | [facility] | [address] | [place] | [phone] | | [facility] | | [address] | | | - LABORATORY | | | | + + + + + | [facility] | [address] | [place], [place] | | | [facility] | | [address] | | | - LABORATORY | | [...] + | [facility] | [address] | [place] | | | [facility] | | [address] | | | - BLOOD BANK | [...] mL/min/1.73m2 | [facility] | | | TUNISIAN | RATE,ESTIMATED | | MEDICAL | | | | mL/min/1.33x6Tlfl than | | CENTER - | | [...] + | [facility] | [address] | [place], [place] | [phone] | | [facility] | | [address] | | | - LABORATORY | | | | + + + + + | [facility] | [address] | [place], [place] | | | [facility] | | [address] | | | - LABORATORY | | [...] + | [facility] | [address] | [place] | [phone] | | [facility] | | [address] | | | - LABORATORY | | | | + + + + + | [facility] | [address] | [place], [place] | | | [facility] | | [address] | | | - LABORATORY | | [...] -------- | | | ---- 11/14/2013 10:22 [place] | | | [facility] black stool; 11/03/2013 | | | 07:39 [facility] Back | | | Pain; | [...] type, unspecified; 09/20/2013 00:12 | | | [facility] Thoracic or | | | lumbosacral neuritis or radiculitis, unspecified; | | | | | | Flank Pain; | | | | | | back/side pain; 09/15/2013 09:18 [facility] | | | [place] Sprain of thoracic; | | | | | | Upper Back Pain; | | | | | | Back Pain; VISIT COUNT (1 YR.) Visits Medicaid [place] D[place] | | | Location ------ --------- 4 0 | | | [facility] 4 | | | 0 Total Note: Visits indicate total | | | known visits. [place] are the number of primary diagnoses on | | | the [facility]'s non-emergent dx list. | | | [...]
--- OUTSIDE RECORDS SUMMARY | ~2019-04-12 | XMS | Encounter Summary ---
Demographics + + + | Address | [address] | | | [place] [address] | + + + | Home Phone [...] | Author | [facility] | | | and Ohana | + + + | Organization | [facility] [...] SWA[place] | | | | | [place] [address] | | + + + + + | Hunter Jackson | ECON | [place] | | + + + + + | Wes Jackson | ECON | [place], [place] | | + + + + + | Oziel Jackson | ECON | [place], [place] | | + + + + + Care Team Providers + +------+ + | Care Carbon Capture Power Plant Manager Name | Role | Phone | + +------+ + | Kellie Gunderson | PCP | | + +------+ + Encounter Details +--------+ + + + + | Date | Type | Department | Care Team | Description | +--------+ + + + + | 07/02/ | Hospital | [facility] | [place], | Coronary artery | | 2018 | Encounter | MED CTR ULTRASOUND | JOSE ALBERTO Linder [address] | disease involving | | | | [address] [place] | [place], | [place] coronary | | | | [place], [place] | [place] [address] | artery of [place] | | | | [address] | [phone] | heart with unstable | | | | [phone] | | angina pectoris | | | | | Bertha Dewitt | ([facility]) | | | | | M, [...] | | | | | | [place] [address] | | | | | | [phone] | | | | | | | [...] the | | | | PST | [place] coronary | results section. | | | | | artery of [place] | | | | | | heart [...] pressures of lower | | | extremities. 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
--- OUTSIDE RECORDS SUMMARY | ~2019-04-12 | XMS | Encounter Summary ---
Demographics + + + | Address | [address] | | | [place] [address] | + + + | Home Phone [...] | Author | [facility] | | | and Ohana | + + + | Organization | [facility] [...] SWAIN | | | | | [place] [address] | | + + + + + | Hunter Jackson | ECON | [place] | | + + + + + | Wes Jackson | ECON | [place], [place] | | + + + + + | Oziel Jackson | ECON | [place], [place] | | + + + + + Care Team Providers + +------+ + | Care Land Appraiser Name | Role | Phone | + [...] + + | 07/17/ | Office | [facility] | Ulysses Jensen, | Arthritis of | | 2018 | Visit | ORTHOPEDIC SURGERY | [address] | carpometacarpal | | | | [address] [place] [address] | [place], [place] | (CMC) joint of right | | | | [place], [place] | [address] | thumb (Primary Dx); | | | | [address] | | Rotator cuff tear | | | | [phone] | | arthropathy of right | | [...] | | | | | | [place] [address] | | | | | | [phone] | | | | | | | [...]
--- OUTSIDE RECORDS SUMMARY | ~2019-04-12 | XMS | Clinical Summary ---
Demographics + + + | Address | [address] | | | [place] [address] | + + + | Home Phone [...] | Author | [facility] | | | and Ohana | + + + | Organization | [facility] [...] SWA[place] | | | | | [place] [address] | | + + + + + | Hunter Jackson | ECON | [place] | | + + + + + | Wes Jackson | ECON | [place], [place] | | + + + + + | Oziel Jackson | ECON | [place], [place] | | + + + + + Care Team Providers + +------+ + | Care Training And Development Project Leader Name | Role | Phone | [...] + + | Coronary artery disease involving [place] coronary artery of | 11/02/2016 | | [place] heart with unstable angina pectoris | | [...] | AI, no , trace TR, trace CT, normal aorta other than mild | | [...] STREETER | | | | | | [address] | | | | | | | | +--------+---------+ + + + | 11/21/ | Office | Cardiology | Yesi, | | | 2019 | Visit | | JSOE ALBERTO Linder [address] | | | | | | [place] | | | | | | [place] [address] | | | | | | [phone] | | | | | | | [...] + +--------+ | MEDICARE | MEDICA | [id number] | | [phone] | | Medica | | | RE | | 003-Pr | 5 | | re | | | PART A | | esent | | | | | | AND B | | | | | | + +--------+ +--------+ + +--------+ | MODA | MODA | [id number] | 07/11/19 | [phone] | [address] | Indemn | | | HEALTH | | 08-Pre | 9 | [address] | ity | | | MDCR | | sent | | G[employer]ERNMENT [place], | | | | [place] | | | | [place] [address] | | + +--------+ +--------+ + +--------+ [...] saba | | | 9 (Home) | [address] | + +--------+ +--------+ + + Advance Directives + + + + + | Type | Date Recorded | Patient | Explanation | | | | Cash Processor | | + + + + + | Power of | | | | | Spiral Gear Generator | | | | + + + [...]
--- OUTSIDE RECORDS SUMMARY | ~2019-04-12 | XMS | Encounter Summary ---
Demographics + + + | Address | [address] | | | [place] [address] | + + + | Home Phone [...] | Author | [facility] | | | and Ohana | + + + | Organization | [facility] | [...] [place] | | | | | [place] [address] | | + + + + + | Hunter Jackson | ECON | [place] | | + + + + + | Wes Jackson | ECON | [place], [place] | | + + + + + | Oziel Jackson | ECON | [place], [place] | | + + + + + Care Team Providers + +------+ + | Care Data Programmer Name | Role | Phone | [...] + + | 08/29/ | Office | [facility] [place] | Ulysses Jensen, | Rotator cuff | | 2017 | Visit | ORTHOPEDIC SURGERY | [address] | syndrome, right | | | | [address] | [place] | (Primary Dx); [facility] | | | | [place] | [address] | arthritis | | | | [address] | | | | | | [phone] | | | +--------+---------+ + + + [...] [place] | | | | | | [address] | | | | | | | | +--------+---------+ + + + | 11/21/ | Office | Cardiology | Yesi, | | | 2019 | Visit | | JOSE ALBERTO Linder [address] | | | | | | [place], | | | | | | [place] [address] | | | | | | [phone] | | | | | | | [...] PDT | | | | | ONCE, [facility] 08/29/16 at 1500, For 1 | | | | | | | dose, Shake well. Not for IV | | | | | | | use., | | | | | | + +-------+ +-------+---+ + +---+---+ | | | +---+---+ documented in this encounter
--- OUTSIDE RECORDS SUMMARY | ~2019-04-12 | XMS | Encounter Summary ---
Demographics + + + | Address | [address] | | | [place] [address] | + + + | Home Phone [...] | [facility] | | | and Ohana | + + + | Organization | [facility] | | [...] [place] | | | | | [place] [address] | | + + + + + | Hunter Jackson | ECON | [place] | | + + + + + | Wes Jackson | ECON | [place], [place] | | + + + + + | Oziel Jackson | ECON | [place], [place] | | + + + + + Care Team Providers + +------+ + | Care Security Flex Officer Name | Role | Phone | [...] + + | 10/16/ | Telephone | [facility] | Irina Simms, | Other (plan of care) | | 2017 | | CARDIOLOGY [address] | [address] | | | | | [place], | [place], | | | | | [place] [address] | [place] [address] | | | | | [phone] | [phone] | | | | | | | [...] STREETER | | | | | | [address] | | | | | | | | +--------+---------+ + + + | 11/21/ | Office | Cardiology | Yesi, | | | 2019 | Visit | | JOSE ALBERTO Linder [address] | | | | | | [place] | | | | | | [place] [address] | | | | | | [phone] | | | | | | | | +--------+---------+ + + + documented as of this encounter Visit Diagnoses Not on filedocumented in this encounter"
--- OUTSIDE RECORDS SUMMARY | ~2019-04-12 | XMS | Encounter Summary ---
Demographics + + + | Address | [address] | | | [place] [address] | + + + | Home Phone [...] Author | [facility] | | | and Ohana | + + + | Organization | [facility] | | | [...] | | | | | [place] [address] | | + + + + + | Hunter Jackson | ECON | [place] | | + + + + + | Wes Jackson | ECON | [place], [place] | | + + + + + | Oziel Jackson | ECON | [place], [place] | | + + + + + Care Team Providers + +------+ + | Care Leaf Sucker Operator Name | Role | Phone | + +------+ + | Rodolfo Cruz MD | PCP | | + +------+ + Encounter Details +--------+ + + + + | Date | Type | Department | Care Team | Description | +--------+ + + + + | 11/26/ | Hospital | [facility] | Rodolfo Cruz, | Memory loss; | | 2015 | Encounter | MED CTR LABORATORY | MD Raya Zuleta [address] | Urticaria, | | | | [address] [place] | [place], [place] | unspecified | | | | [place], [place] | [address] | | | | | [address] | | | | | | [phone] | | | +--------+ + + + [...] + + + +---------+ + + | [place] 3 1000 MG | Take by mouth. [...] STREETER | | | | | | [address] | | | | | | | | +--------+---------+ + + + | 11/21/ | Office | Cardiology | Yesi, | | | 2019 | Visit | | JOSE ALBERTO Linder [address] | | | | | | [place], | | | | | | [place] [address] | | | | | | [phone] | | | | | | | [...] [address] | [place] | [phone] | | [facility] | | [address] | | | - LABORATORY | | [...] + | [facility] | [address] | [place] | [phone] | | [facility] | | [address] | | | - LABORATORY | | [...] [address] | [place] | [phone] | | [facility] | | [address] | | | - LABORATORY | | | | + + + + + documented in this encounter Visit Diagnoses + + | Diagnosis | + + | Memory loss | + + | Urticaria, unspecified | + + documented in this encounter"
--- OUTSIDE RECORDS SUMMARY | ~2019-04-12 | XMS | Encounter Summary ---
Demographics + + + | Address | [address] | | | [place] [address] | + + + | Home Phone [...] | Author | [facility] | | | and Ohana | + + + | Organization | [facility] | [...] | | | | | [place] [address] | | + + + + + | Hunter Jackson | ECON | [place] | | + + + + + | Wes Jackson | ECON | [place], [place] | | + + + + + | Oziel Jackson | ECON | [place], [place] | | + + + + + Care Team Providers + +------+ + | Care Gauge Maker Name | Role | Phone | [...] | 01/26/ | Refill | [facility] | Rodolfo Cruz, | Medication Refill | | 2015 | | MEDICINE [address] | [place] [address] | | | | | [place] | [place] | | | | | [place] [address] | [address] | | | | | [phone] | | | +--------+--------+ + + + [...] | | | | | | [place] [address] | | | | | | [phone] | | | | | | | | +--------+---------+ + + + documented as of this encounter Visit Diagnoses Not on filedocumented in this encounter"
--- OUTSIDE RECORDS SUMMARY | ~2019-04-12 | XMS | Encounter Summary ---
Demographics + + + | Address | [address] | | | [place] [address] | + + + | Home Phone [...] + | Author | [facility] | | | and Ohana | + + + | Organization | [facility] | [...] | | | | | [place] [address] | | + + + + + | Hunter Jackson | ECON | [place] | | + + + + + | Wes Jackson | ECON | [place], [place] | | + + + + + | Oziel Jackson | ECON | [place], [place] | | + + + + + Care Team Providers + +------+ + | Care Anesthesiology Resident Name | Role | Phone | + [...] + + | 09/20/ | Emergency | [facility] | Diogenes Grya, | Thoracic | | 2013 | | MED CTR EMERGENCY | [address] | radiculopathy | | | | [place] [address] | [facility] [place] | (Primary Dx) | | | | [place] | [place] [address] | | | | | [address] | [phone] | | | | | [phone] | | | +--------+ + + + [...] cannot be sent through Care Everywhere.THORACIC STRAIN (GERMAN)documented in this encounter Medications at Time of [...] STREETER | | | | | | [address] | | | | | | | | +--------+---------+ + + + | 11/21/ | Office | Cardiology | Yesi, | | | 2019 | Visit | | JOSE ALBERTO Linder [address] | | | | | | [place], | | | | | | [place] [address] | | | | | | [phone] | | | | | | | [...] - 1.030 | [facility] | | | [place] | | | [facility] | | [...] + | [facility] | [address] | [place], [place] | [phone] | | [facility] | | [address] | | | - LABORATORY | | | | + + + + + | [facility] | [address] | [place], [place] | | | [facility] | | [address] | | | - LABORATORY | | [...] | 1.015 | | | | | [place], | | | | | | UA, [...] + | MISCELLANEOUS LAB | | | [phone] | + +---------+ + + | MISCELANIOUS LAB | | | [phone] | + +---------+ + + documented in [...]
--- OUTSIDE RECORDS SUMMARY | ~2019-04-12 | XMS | Encounter Summary ---
Demographics + + + | Address | [address] | | | [place] [address] | + + + | Home Phone [...] Author | [facility] | | | and Ohana | + + + | Organization | [facility] | | | [...] | | | | | [place] [address] | | + + + + + | Hunter Jackson | ECON | [place] | | + + + + + | Wes Jackson | ECON | [place], [place] | | + + + + + | Oziel Jackson | ECON | [place], [place] | | + + + + + Care Team Providers + +------+ + | Care Home Performance Consultant Name | Role | Phone | [...] + + | 02/28/ | Office | [facility] | Ulysses Jensen, | Osteoarthritis of | | 2016 | Visit | ORTHOPEDIC SURGERY | [address] | first | | | | [address] [facility] | [place] | carpometacarpal | | | | [place] | [address] | (CMC) joint of one | | | | [address] | | hand (Primary Dx); | | | | [phone] | | Rotator cuff | | | [...] STREETER | | | | | | [address] | | | | | | | | +--------+---------+ + + + | 11/21/ | Office | Cardiology | Yesi, | | | 2019 | Visit | | JOSE ALBERTO Linder [address] | | | | | | [place], | | | | | | [place] [address] | | | | | | [phone] | | | | | | | [...] | | (Comment | | Intramuscular, ONCE, [facility] 02/29/16 | | AM PDT | [...] PDT | | | | | ONCE, [facility] 02/29/16 at 0000, For 1 | | | | | | | dose, Shake well. Not for IV | | | | | | | use., | | | | | | + +-------+ +-------+---+ + +---+---+ | | | +---+---+ documented in this encounter"
--- OUTSIDE RECORDS SUMMARY | ~2019-04-12 | XMS | Encounter Summary ---
Demographics + + + | Address | [address] | | | [place] [address] | + + + | Home Phone [...] | Author | [facility] | | | and Ohana | + + + | Organization | [facility] | [...] [place] | | | | | [place] [address] | | + + + + + | Hunter Jackson | ECON | [place] | | + + + + + | Wes Jackson | ECON | [place], [place] | | + + + + + | Oziel Jackson | ECON | [place], [place] | | + + + + + Care Team Providers + +------+ + | Care Manager Of Care Name | Role | Phone | [...] | Cervical | [place], | [address] | | | | | radiculopath | Harsha Moreno MD | [place], | | | | | y | [address] | [place] | | | | | Procedures | [facility] | [address] | | | | | [place] | [place] | Phone: | | | | | DX/THER SBST | [address] | [phone] | | | | | INTRLMNR | Phone: | Fax: | | | | | CRV/THRC | [phone] | [phone] | | | | | W/IMG GDN | Fax: | | | | | | [place] | [phone] | | | | | | TRIAMCINOLON [...] + + | 08/29/ | Hospital | [facility] | Cassidycz, | Cervical | | 2017 | Encounter | MED CTR XRAY [address] | [address] | radiculopathy | | | | [address] | [facility], | (Primary Dx); [place] | | | | [place] [address] | [place] [address] | (degenerative disc | | | | [phone] | [phone] | disease), cervical; | | | | | | Foraminal stenosis | | | | | Child Welfare Caseworker, [facility] | of cervical region; | | [...] STREETER | | | | | | [address] | | | | | | | | +--------+---------+ + + + | 11/21/ | Office | Cardiology | Yesi, | | | 2019 | Visit | | JOSE ALBERTO Linder [address] | | | | | | [place] | | | | | | [place] [address] | | | | | | [phone] | | | | | | | [...] presents to the fluoroscopy suite for a [facility] | | fluoroscopically-guided C7-T1 interlaminar [...] + + | Performing | Address | City/State/[facility] Servicescode | Phone Number | | Organization | | | | + + + + + | [facility] | [address] | [place] | [phone] | | [facility] | | [address] | | | - IMAGING | | [...] | | | | | Other, ONCE, [facility] 08/29/16 at 1330, | | PM [...]
--- OUTSIDE RECORDS SUMMARY | ~2019-04-12 | XMS | Encounter Summary ---
Demographics + + + | Address | [address] | | | [place] [address] | + + + | Home Phone [...] | Author | [facility] | | | and Ohana | + + + | Organization | [facility] | | | [...] | | | | | [place] [address] | | + + + + + | Hunter Jackson | ECON | [place] | | + + + + + | Wes Jackson | ECON | [place], [place] | | + + + + + | Oziel Jackson | ECON | [place], [place] | | + + + + + Care Team Providers + +------+ + | Care Wringer Machine Operator Name | Role | Phone [...] | 01/20/ | Refill | [facility] | Rodolfo Cruz, | Medication Refill | | 2013 | | MEDICINE [address] | [place] [address] | | | | | [place] | [place] | | | | | [place] [address] | [address] | | | | | [phone] | | | +--------+--------+ + + + [...] | | | | | | [place] [address] | | | | | | [phone] | | | | | | | | +--------+---------+ + + + documented as of this encounter Visit Diagnoses Not on filedocumented in this encounter"
--- OUTSIDE RECORDS SUMMARY | ~2019-04-12 | XMS | Encounter Summary ---
Demographics + + + | Address | [address] | | | [place] [address] | + + + | Home Phone [...] | Author | [facility] | | | and Ohana | + + + | Organization | [facility] | [...] [place] | | | | | [place] [address] | | + + + + + | Hunter Jackson | ECON | [place] | | + + + + + | Wes Jackson | ECON | [place], [place] | | + + + + + | Oziel Jackson | ECON | [place], [place] | | + + + + + Care Team Providers + +------+ + | Care Food Safety Specialist Name | Role | Phone | [...] | | | | [address] | [place] [address] | (Primary Dx) | | | | [place] | [phone] | | | | | [address] | | | | | | [phone] | | | +--------+ + + + [...] | | | | | | [place] [address] | | | | | | [phone] | | | | | | | | +--------+---------+ + + + documented as of this encounter Visit Diagnoses + + | Diagnosis | + + | Wound infection after surgery, initial encounter - Primary | + + documented in this encounter"
--- OUTSIDE RECORDS SUMMARY | ~2019-04-12 | XMS | Encounter Summary ---
Demographics + + + | Address | [address] | | | [place] [address] | + + + | Home Phone [...] Author | [facility] | | | and Ohana | + + + | Organization | [facility] [...] | | | | | [place] [address] | | + + + + + | Hunter Jackson | ECON | [place] | | + + + + + | Wes Jackson | ECON | [place], [place] | | + + + + + | Oziel Jackson | ECON | [place], [place] | | + + + + + Care Team Providers + +------+ + | Care Data Quality Consultant Name | Role | Phone | [...] | (Primary Dx) | | | | [address] | [address] | | | | | [phone] | | | +--------+---------+ + + + [...] d strong odors are examples of irritants. 1700-[address] [employer]. [address] [place], [place] [id number]. All righ ts reserved. This information is [...] severe itching of the eyes or mouth 4013-8042 [employer]. [address] [place] [address]. All righ ts reserved. This information is [...] nasal congestion and mucus producti on. Some sqbe-azo-uvyqfjr allergy medicines are discussed. Steroid nasal sprays likewise d iscussed. Saltwater gargles. This note was dictated using [employer] voice recognition software. Occasional wrong- word or [...] STREETER | | | | | | [address] | | | | | | | | +--------+---------+ + + + | 11/21/ | Office | Cardiology | Yesi, | | | 2019 | Visit | | JOSE ALBERTO Linder [address] | | | | | | [place], | | | | | | [place] [address] | | | | | | [phone] | | | | | | | | +--------+---------+ + + + documented as of this encounter Visit Diagnoses + + | Diagnosis | + + | Other seasonal allergic rhinitis - Primary | + + documented in this encounter
--- OUTSIDE RECORDS SUMMARY | ~2019-04-12 | XMS | Encounter Summary ---
Demographics + + + | Address | [address] | | | [place] [address] | + + + | Home Phone [...] Author | [facility] | | | and Ohana | + + + | Organization | [facility] | [...] | | | | | [place] [address] | | + + + + + | Hunter Jackson | ECON | [place] | | + + + + + | Wes Jackson | ECON | [place], [place] | | + + + + + | Oziel Jackson | ECON | [place], [place] | | + + + + + Care Team Providers + +------+ + | Care Electrical Timing Device Calibrator Name | Role | Phone | + [...] pain (Primary Dx); | | | | [place], | [address], | [place] (degenerative | | | | [place] [address] | [place] [address] | disc disease), | | | | [phone] | [phone] | lumbar; Facet | | | | [...] not feel pain. 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 [...] has no apparent deficits with short or senior care memory. 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 Unfortunately she cont inues to have significant [...] STREETER | | | | | | [address] | | | | | | | | +--------+---------+ + + + | 11/21/ | Office | Cardiology | Yesi, | | | 2019 | Visit | | JOSE ALBERTO Linder [address] | | | | | | [place], | | | | | | [place] [address] | | | | | | [phone] | | | | | | | [...] Soumya Jackson presents to the | [facility] | | fluoroscopy suite for fluoroscopically guided bilateral L4 medial [facility] | | branch blocks and bilateral L5 [...] + + | Performing | Address | City/State/[facility] Cent[facility] | Phone Number | | Organization | | | | + + + + + | [address] | [address] | [place] | [phone] | | [facility] | | [address] | | | - IMAGING | | [...]
--- OUTSIDE RECORDS SUMMARY | ~2019-04-12 | XMS | Encounter Summary ---
Demographics + + + | Address | [address] | | | [place] [address] | + + + | Home Phone [...] | [facility] | | | and [place] | + + + | Organization | [facility] | | | [...] | | | | | [place] [address] | | + + + + + | Hunter Jackson | ECON | [place] | | + + + + + | Wes Jackson | ECON | [place], [place] | | + + + + + | Oziel Jackson | ECON | [place], [place] | | + + + + + Care Team Providers + +------+ + | Care Robot Operator Name | Role | Phone | + +------+ + | Rodolfo Cruz MD | PCP | | + +------+ + Encounter Details +--------+ + + + + | Date | Type | Department | Care Team | Description | +--------+ + + + + | 05/08/ | Hospital | [facility] | Beatriz Faust | | | 2010 | Encounter | MED CTR XRAY [address] | DO Danny Padron | | | | | [place] | [place], [place] | | | | | [place] [address] | [id number] | | | | | [phone] | | | +--------+ + + + [...] | | | | | | [place] [address] | | | | | | [phone] | | | | | | | [...] Performed At | + + + | [facility] Diagnostic Imaging Department | [facility] | | [address] [facility] | [facility] | | GALLBLADDER ULTRASOUND 05/08/2011 | [...] Transcribed Date/Time: | | | 05/08/2011 15:21 Special Education Administrator: <Electronically Signed | | | by Peng Acosta MD> 05/08/11 1607 | | + + + + + | Procedure Note | + + | Zoltan Macedo Conversion - 06/18/2013 4:28 PM [facility] | | Diagnostic Imaging Department [address] [facility] | | GALLBLADDER ULTRASOUND 05/08/2011 CLINICAL [...] 13:46 | |Transcribed Date/Time: 05/08/2011 15:21 | |Special Education Administrator: | |<Electronically Signed by Peng Acosta MD> [...]
--- OUTSIDE RECORDS SUMMARY | ~2019-04-12 | XMS | Encounter Summary ---
Demographics + + + | Address | [address] | | | [place] [address] | + + + | Home Phone [...] + | Author | [facility] | | | and [place] | + + + | Organization | [facility] | | [...] | | | | | [place] [address] | | + + + + + | Hunter Jackson | ECON | [place] | | + + + + + | Wes Jackson | ECON | [place], [place] | | + + + + + | Oziel Jackson | ECON | [place], [place] | | + + + + + Care Team Providers + +------+ + | Care Forgeman Helper Name | Role | Phone | [...] 2013 | | SLEEP DISORDER [address] | CARDIAC SONOGRAPHER | | | | | [address] [place] [address] | | | | | | [place] [address] | | | | | | [phone] | | | +--------+ + + + [...] STREET[place] | | | | | | [address] | | | | | | | | +--------+---------+ + + + | 11/21/ | Office | Cardiology | Yesi, | | | 2020 | Visit | | JOSE ALBERTO Linder [address] | | | | | | [place], | | | | | | [place] [address] | | | | | | [phone] | | | | | | | | +--------+---------+ + + + documented as of this encounter Visit Diagnoses Not on filedocumented in this encounter"
--- OUTSIDE RECORDS SUMMARY | ~2019-04-12 | XMS | Encounter Summary ---
Demographics + + + | Address | [address] | | | [place] [address] | + + + | Home Phone [...] + | Author | [facility] | | | and [place] | + + + | Organization | [facility] | [...] | | | | | [place] [address] | | + + + + + | Hunter Jackson | ECON | [place] | | + + + + + | Wes Jackson | ECON | [place], [place] | | + + + + + | Oziel Jackson | ECON | [place], [place] | | + + + + + Care Team Providers + +------+ + | Care Armature And Rotor Winder Name | Role | Phone | [...] [place], | | | | | | [address] | [place] [address] | | | | | | Phone: | Phone: | | | | | | [phone] | [phone] | | | | | | Fax: | Fax: | | | | | | [phone] | [phone] | +--------+ + + + + + Encounter Details +--------+---------+ + + + | Date | Type | Department | Care Team | Description | +--------+---------+ + + + | 07/26/ | Office | [facility] | Ethan Ny | Varicose veins | | 2015 | Visit | SURGERY [address] | MD Mayte, FACS [address] | (Primary Dx) | | | | [place], [place] | [address] [facility] | | | | | [address] | [place] [address] | | | | | [phone] | [phone] | | | | | | | [...] own food shopping and aquatics. 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 Mild leg swelling helped with lasix. Sister with varicose vein and had surgery. AIDEN Score: 2 DATA/RECENT IMAGING None Rodolfo Cruz MD's notes were reviewed in clinic today. PAST MEDICAL HISTORY She has a past medical history of Hypertension; High cholesterol; Hepatitis A (1967); Osteo porosis; MGUS (monoclonal gammopathy of unknown significance); COPD (chronic obstructive pul monary disease) ([facility]); Mononucleosis; Miscarriage; Asthma (); Fracture [...] for blood transfus ion (November 2013); Stroke ([facility]) (Apr 2010); Hep B complicating ; Chronic low back dorota n (08/24/2014); DDD (degenerative disc disease), lumbar (08/24/2014); Facet arthritis of lumba r region (08/24/2014); Essential hypertension; Clotting disorder ([facility]) (2013); Environmental allergies; Heart murmur; and Tinea corporis (01/31/2015). Past Surgical History She Past Surgical History Procedure Laterality Date Colonoscopy 05/2002; 03/28/10 next due 03/2020 Removal lower left nodules 2004 Foot fracture surgery 2004 left foot Tonsillectomy and adenoidectomy 1955 Upper gastrointestinal endoscopy 11/15/2013 EGD * IP RM: 428 * ; Laterality: N/A; Surgeon: Lauri Garrison MD; Location: [facility] Upper gastrointestinal endoscopy 11/04/2013 EGD IP 449; Laterality: N/A; Surgeon: Samm Pandya MD; Location: [facility] MED[facility] PROCEDURE UN[facility] Hemorrhoid surgery [id number] Thyroidectomy Allergies Allergen Reactions Diclofenac Sodium Duodenal [...] REPORT: PATIENT NAME : Soumya Jackson EQUIPMENT: SonKrillion-Wattageo with 10-5 mHertz probe. INDICATIONS: LEFT calf [...] | | | | | | [place] [address] | | | | | | [phone] | | | | | | | | +--------+---------+ + + + documented as of this encounter Visit Diagnoses + + | Diagnosis | + + | Varicose veins - Primary Asymptomatic varicose veins | + + documented in this encounter
--- OUTSIDE RECORDS SUMMARY | ~2019-04-12 | XMS | Encounter Summary ---
Demographics + + + | Address | [address] | | | [place] [address] | + + + | Home Phone [...] | Author | [facility] | | | and [place] | + + + | Organization | [facility] [...] | | | | | [place] [address] | | + + + + + | Hunter Jackson | ECON | [place] | | + + + + + | Wes Jackson | ECON | [place], [place] | | + + + + + | Oziel Jackson | ECON | [place], [place] | | + + + + + Care Team Providers + +------+ + | Care Chestnut Tanner Name | Role | Phone | + [...] | ORTHOPEDIC SURGERY | MD [address] [facility] | syndrome, right | | | | [address] | [place] | (Primary Dx); [facility] | | | | [place] | [address] | arthritis | | | | [address] | | | | | | [phone] | | | +--------+---------+ + + + [...] joint is tender with obvious deformity from ence-ua-vlij arthrosis Under sterile conditions I injected her [...] [place] | | | | | | [address] | | | | | | | | +--------+---------+ + + + | 11/21/ | Office | Cardiology | Yesi, | | | 2019 | Visit | | JOSE ALBERTO Linder [address] | | | | | | [place], | | | | | | [place] [address] | | | | | | [phone] | | | | | | | | +--------+---------+ + + + documented as of this encounter Visit Diagnoses + + | Diagnosis | + + | Rotator cuff syndrome, right - Primary | + + | [facility] arthritis Unspecified arthropathy, hand | + + documented in this encounter
--- OUTSIDE RECORDS SUMMARY | ~2019-04-12 | XMS | Encounter Summary ---
Demographics + + + | Address | [address] | | | [place] [address] | + + + | Home Phone [...] | Author | [facility] | | | and [place] | + + + | Organization | [facility] | | [...] [place] | | | | | [place] [address] | | + + + + + | Hunter Jackson | ECON | [place] | | + + + + + | Wes Jackson | ECON | [place], [place] | | + + + + + | Oziel Jackson | ECON | [place], [place] | | + + + + + Care Team Providers + +------+ + | Care Agriculture Teacher Name | Role | Phone | [...] | | | atherosclero | | [address] | | | | | sis of | | [place], | | | | | unspecified | | [place] [address] | | | | | type of | | Phone: | | | | | vessel, | | [phone] | | | | | [place] | | Fax: | | | | | graft | | [phone] | | | | | Coronary | | | | | | | atherosclero | | | | | | | sis of | | | | | | | unspecified | | | | | | | type of | | | | | | | vessel, | | | | | | | [place] | | | | | | | graft | | | | | | | Procedures | | | | | | | CO ENDOSCOPY | | | | | | | | | | | | | | W/VIDEO-ASST | | | | | | | VEIN | | | | | | | HARVEST,CABG | | | | | | | CO CABG, | | | | | | | ARTERY-VEIN, | | | | | | | FOUR CO | | | | | | [...] | [facility] | MD Christina [address] [place] [address] | | | | | [facility] [address] [place] | | | | | [address] [place] [address] | [id number] | | | | | [place] | | | | | | [address] | | | | | | [phone] | | | +--------+ + + + [...] STREETER | | | | | | [address] | | | | | | | | +--------+---------+ + + + | 11/21/ | Office | Cardiology | Yesi, | | | 2019 | Visit | | JOSE ALBERTO Linder [address] | | | | | | [place] | | | | | | [place] [address] | | | | | | [phone] | | | | | | | | +--------+---------+ + + + documented as of this encounter Visit Diagnoses Not on filedocumented in this encounter"
--- OUTSIDE RECORDS SUMMARY | ~2019-04-12 | XMS | Encounter Summary ---
Demographics + + + | Address | [address] | | | [place] [address] | + + + | Home Phone [...] | [facility] | | | and [place] | + + + | Organization | [facility] [...] [place] | | | | | [place] [address] | | + + + + + | Hunter Jackson | ECON | [place] | | + + + + + | Wes Jackson | ECON | [place], [place] | | + + + + + | Oziel Jackson | ECON | [place], [place] | | + + + + + Care Team Providers + +------+ + | Care Executive Team Leader Name | Role | Phone [...] POPLAR | radiculopathy | | | | [facility] [place], | [address] [place], [place] | (Primary Dx); DDD | | | | [place] [address] | [address] | (degenerative disc | | | | [phone] | | disease), cervical; | | | [...] lidocaine patches. She started PT at the [facility] in [place], but then self discharged because it aggravated her right arthritic shoulder which she gets steroid injections every [address] Jensen. She underwent a triple-bypass surgery in [facility] of this year so treatments for her [...] with the patient today during the visit. [facility] MRI shows no disc bulge or protrusion, [...] scheduled for this in the near f [facility]. 2. Medications have been reviewed at [...] W | | | | | | [facility] [place], | | | | | | [place] [address] | | | | | | [phone] | | | | | | | [...] Performing | Address | City/State[facility] | Phone [...]
--- OUTSIDE RECORDS SUMMARY | ~2019-04-12 | XMS | Encounter Summary ---
Demographics + + + | Address | [address] | | | [place] [address] | + + + | Home Phone [...] | Author | [facility] | | | and [place] | + + + | Organization | [facility] [...] | | | | | [place] [address] | | + + + + + | Hunter Jackson | ECON | [place] | | + + + + + | Wes Jackson | ECON | [place], [place] | | + + + + + | Oziel Jackson | ECON | [place], [place] | | + + + + + Care Team Providers + +------+ + | Care Air Conditioning Coil Assembler Name | Role | Phone | [...] | [address] | | | | | [address] | | | | | | [phone] | | | +--------+--------+ + + + [...] | | | | | | [place] [address] | | | | | | [phone] | | | | | | | | +--------+---------+ + + + documented as of this encounter Visit Diagnoses Not on filedocumented in this encounter"
--- OUTSIDE RECORDS SUMMARY | ~2019-04-12 | XMS | Encounter Summary ---
Demographics + + + | Address | [address] | | | [place] [address] | + + + | Home Phone [...] + | Author | [facility] | | | and [place] | + + + | Organization | [facility] | | [...] | | | | | [place] [address] | | + + + + + | Hunter Jackson | ECON | [place] | | + + + + + | Wes Jackson | ECON | [place], [place] | | + + + + + | Oziel Jackson | ECON | [place], [place] | | + + + + + Care Team Providers + +------+ + | Care Evaluation Analyst Name | Role | Phone | [...] Chronic low | Yany, | [address] | | | | | back pain | [place], | [place], | | | | | DDD | PA-C [address] | [place] | | | | | (degenerativ | [address] | [address] | | | | | e disc | [place] | Phone: | | | | | disease), | [address] | [phone] | | | | | lumbar | Phone: | Fax: | | | | | Procedures | [phone] | [phone] | | | | | MRI Lumbar | Fax: | | | | | | Spine wo | [phone] | | | | | | Contrast [...] Chronic low | Yany, | [address] | | | | | back pain | [place], | [place], | | | | | DDD | PA-C [address] | [place] | | | | | (degenerativ | [address] | [address] | | | | | e disc | [place] | Phone: | | | | | disease), | [address] | [phone] | | | | | lumbar | Phone: | Fax: | | | | | Procedures | [phone] | [phone] | | | | | MRI Lumbar | Fax: | | | | | | Spine wo | [phone] | | | | | | Contrast | | | | | | | MRI | | | +--------+--------+ + + + + Encounter Details +--------+ + + + + | Date | Type | Department | Care Team | Description | +--------+ + + + + | 01/09/ | Hospital | [facility] | Yany, | Chronic low back | | 2015 | Encounter | MED CTR MRI [address] | ANN Verdin [address] | pain; DDD | | | | [address] [place], | [facility], | (degenerative disc | | | | [place] [address] | [place] [address] | disease), lumbar | | | | [phone] | [phone] | | | | | | | [...] | | | | | | [place] [address] | | | | | | [phone] | | | | | | | [...] back pain, not responding to conservative | [facility] | | treatment COMPARISON: None TECHNIQUE: In the 1.5T scanner [facility] | | multiplanar, multisequence imaging of [...] [address] | [place] | [phone] | | [facility] | | [address] | | | - IMAGING | | [...]
--- OUTSIDE RECORDS SUMMARY | ~2019-04-12 | XMS | Encounter Summary ---
Demographics + + + | Address | [address] | | | [place] [address] | + + + | Home Phone [...] + + | Author | [facility] | | | and [place] | + + + | Organization | [facility] | | [...] [place] | | | | | [place] [address] | | + + + + + | Hunter Jackson | ECON | [place] | | + + + + + | Wes Jackson | ECON | [place], [place] | | + + + + + | Oziel Jackson | ECON | [place], [place] | | + + + + + Care Team Providers + +------+ + | Care Plate Grainer Name | Role | Phone | + [...] + + | 02/03/ | Office | [facility] | Yesi, | Hyperlipidemia, | | 2017 | Visit | CARDIOLOGY [address] | JOSE ALBERTO Linder [address] | mixed (Primary Dx); | | | | [place], | [place], | Valvular heart | | | | [place] [address] | [place] [address] | disease; Murmur; | | | | [phone] | [phone] | Essential | | | | | [...] | | | | | | involving [place] | | | | | | coronary artery of | | | | | | [place] heart with | | | | | [...] radiculopathy Coronary artery disease involving [place] coronary artery of [place] heart with unstable angina pectoris Stress hyperglycemia [...] Interval:140 ms P Duration:140 ms P Horizontal [place]:-43 deg P Front [place]:60 deg Q Onset:514 ms QRSD Interval:78 ms QT Interval:384 ms QTcB:426 ms QTcF:412 ms QRS Horizontal [place]:3 deg QRS [place]:21 deg I-40 Horizontal [place]:-8 deg I-40 Front [place]:15 deg T-40 Horizontal [place]:-6 deg T-40 Front [place]:22 deg T Horizontal [place]:44 deg T Wave [place]:12 deg S-T Horizontal [place]:42 deg S-T Front [place]:22 deg Severity:- BORDERLINE ECG - INTERP:SINUS RHYTHM [...] PLTEX 370 09/18/2016 I reviewed records from [facility] for office visit on 11/22/2016 w hich is summarized in the HPI. Above data and testing is reviewed this visit; testing below is historical data unless othe rwise specified. ASSESSMENT: 1. Coronary artery disease A. Seen at [facility] they had EKG and sent her home stating it was GERD B. Seen in the emergency room at [facility] for chest pain. She was schedule for stre ss test and discharged home. C. Stress Test 05/16/16, is maximal asymptomatic stress test, [facility] er very poor function status, achieving [...] trace RI, normal aorta other than mild c alcification [...] this chart may have been created with [employer] voice recognition software. Occasi onal wrong-word or [...] [place] | | | | | | [address] | | | | | | | | +--------+---------+ + + + | 11/21/ | Office | Cardiology | Yesi, | | | 2019 | Visit | | JOSE ALBERTO Linder [address] | | | | | | [place], | | | | | | [place] [address] | | | | | | [phone] | | | | | | | [...] | Coronary artery disease involving [place] coronary artery of [place] heart with unstable | | angina pectoris (HCC) | + + | Transient cerebral ischemia, unspecified type | + + documented in this encounter
--- OUTSIDE RECORDS SUMMARY | ~2019-04-12 | XMS | Encounter Summary ---
Demographics + + + | Address | [address] | | | [place] [address] | + + + | Home Phone [...] | [facility] | | | and [place] | + + + | Organization | [facility] [...] [place] | | | | | [place] [address] | | + + + + + | Hunter Jackson | ECON | [place] | | + + + + + | Wes Jackson | ECON | [place], [place] | | + + + + + | Oziel Jackson | ECON | [place], [place] | | + + + + + Care Team Providers + +------+ + | Care Market Basket Maker Name | Role | Phone | [...] + + | 07/07/ | [facility] | [facility] [place] | [place]i, | Other | | 2017 | | BECCA [address] | JOSE ALBERTO Linder [address] | | | | | [place], | [place], | | | | | [place] [address] | [place] [address] | | | | | [phone] | [phone] | | | | | | | [...] STREETER | | | | | | [address] | | | | | | | | +--------+---------+ + + + | 11/21/ | Office | Cardiology | Yesi | | | 2019 | Visit | | JOSE ALBERTO Linder [address] | | | | | | [place] | | | | | | [place] [address] | | | | | | [phone] | | | | | | | | +--------+---------+ + + + documented as of this encounter Visit Diagnoses Not on filedocumented in this encounter"
--- OUTSIDE RECORDS SUMMARY | ~2019-04-12 | XMS | Encounter Summary ---
Demographics + + + | Address | [address] | | | [place] [address] | + + + | Home Phone [...] | [facility] | | | and [place] | + + + | Organization | [facility] [...] [place] | | | | | [place] [address] | | + + + + + | Hunter Jackson | ECON | [place] | | + + + + + | Wes Jackson | ECON | [place], [place] | | + + + + + | Oziel Jackson | ECON | [place], [place] | | + + + + + Care Team Providers + +------+ + | Care Honing Machine Set Up Operator Tool Name | Role | Phone | [...] + + | 02/03/ | Office | [facility] | Yesi, | Hyperlipidemia, | | 2017 | Visit | CARDIOLOGY [address] | JOSE ALBERTO Linder [address] | mixed (Primary Dx); | | | | [place], | [place], | Valvular heart | | | | [place] [address] | [place] [address] | disease; Murmur; | | | | [phone] | [phone] | Essential | | | | | [...] | | | | | | involving [place] | | | | | | coronary artery of | | | | | | [place] heart with | | | | | [...] differen t from the original. PATIENT NAME: oSumya Jackson : 1935: AGE: 81 y.o. PRIMARY [...] cervical Cervical radiculopathy Coronary artery disease involving [place] coronary artery of [place] heart with unstable angina pectoris Stress hyperglycemia [...] Interval:140 ms P Duration:140 ms P Horizontal [place]:-43 deg P Front [place]:60 deg Q Onset:514 ms QRSD Interval:78 ms QT Interval:384 ms QTcB:426 ms QTcF:412 ms QRS Horizontal [place]:3 deg QRS [place]:21 deg I-40 Horizontal [place]:-8 deg I-40 Front [place]:15 deg T-40 Horizontal [place]:-6 deg T-40 Front [place]:22 deg T Horizontal [place]:44 deg T Wave [place]:12 deg S-T Horizontal [place]:42 deg S-T Front [place]:22 deg Severity:- BORDERLINE ECG - INTERP:SINUS RHYTHM [...] [facility]2016 w hich is summarized in the HPI. Above data and testing is reviewed this visit; testing below is historical data unless othe rwise specified. ASSESSMENT: 1. Coronary artery disease A. Seen at [facility] they had EKG and sent her home stating it was GERD B. Seen in the emergency room at [facility] for chest pain. She was schedule for stre ss test and discharged home. C. Stress Test 05/16/16, is maximal asymptomatic stress test, [facility] er very poor function status, achieving maximal [...] trace [place], normal aorta other than mild c alcification [...] this chart may have been created with [employer] voice recognition software. Occasi onal wrong-word or [...] [place] | | | | | | [address] | | | | | | | | +--------+---------+ + + + | 11/21/ | Office | Cardiology | Yesi, | | | 2019 | Visit | | JOSE ALBERTO Linder [address] | | | | | | [place], | | | | | | [place] [address] | | | | | | [phone] | | | | | | | [...] + + | Coronary artery disease involving [place] coronary artery of [place] heart with unstable | | angina pectoris (HCC) | + + | Transient cerebral ischemia, unspecified type | + + documented in this encounter
--- OUTSIDE RECORDS SUMMARY | ~2019-04-12 | XMS | Encounter Summary ---
Demographics + + + | Address | [address] | | | [place] [address] | + + + | Home Phone [...] + + | Author | [facility] | | | and Ohana | + + + | Organization | [facility] | | [...] | | | | | [place] [address] | | + + + + + | Gisele Jackson | ECON | [place] | | + + + + + | Wes Jackson | ECON | [place], [place] | | + + + + + | Oziel Jackson | ECON | [place], [place] | | + + + + + Care Team Providers + +------+ + | Care Translator/Interpreter Name | Role | Phone | + [...] | | back pain | [address] [facility] | | | | | | [address] [place] | [address] [facility] | | | | | | [place] | AVE | | | | | | [address] | [place] | | | | | | Phone: | [address] | | | | | | [phone] | Phone: | | | | | | Fax: | [phone] | | | | | | [phone] | Fax: | | | | | | | [phone] | +--------+ + + + + + [...] + + | 03/29/ | Office | [facility] | Rodolfo Cruz, | Thoracic back pain | | 2014 | Visit | MEDICINE [facility] Dione | MD [address] | (Primary Dx); | | | | Street [place] | [facility] [place] | Anemia; Epistaxis; | | | | [place] [address] | [address] | Insomnia; Back pain | | | | [phone] | |Back pain | +--------+---------+ + + [...] Epistaxis, recent , seen at ER in [place]. No recurrence using an ointment and decongest [...] | | 2019 | Visit | | [facility] DIONE | | | | | | [place] [address] | | | | | | [address] | | | | | | | | +--------+---------+ + + + | 11/21/ | Office | Cardiology | Yesi, | | | 2019 | Visit | | JOSE ALBERTO Linder [address] | | | | | | [place], | | | | | | [place] [address] | | | | | | [phone] | | | | | | | [...]
--- OUTSIDE RECORDS SUMMARY | ~2019-04-12 | XMS | Encounter Summary ---
Demographics + + + | Address | [address] | | | [place] [address] | + + + | Home Phone [...] + | Author | [facility] | | | and Ohana | + + + | Organization | [facility] | | [...] | | | | | [place] [address] | | + + + + + | Hunter Jackson | ECON | [place] | | + + + + + | Wes Jackson | ECON | [place], [place] | | + + + + + | Oziel Jackson | ECON | [place], [place] | | + + + + + Care Team Providers + +------+ + | Care Boat Builder Name | Role | Phone | [...] + + | 10/27/ | Telephone | [facility] | Rodolfo Cruz, | Results | | 2013 | | MEDICINE [facility] Sravan | MD [address] | | | | | [place] | [place] [address] | | | | | [place] [address] | [address] | | | | | [phone] | | | +--------+ + + + [...] STREETER | | | | | | [address] | | | | | | | | +--------+---------+ + + + | 11/21/ | Office | Cardiology | Yesi, | | | 2019 | Visit | | JOSE ALBERTO Linder [address] | | | | | | [place], | | | | | | [place] [address] | | | | | | [phone] | | | | | | | | +--------+---------+ + + + documented as of this encounter Visit Diagnoses Not on filedocumented in this encounter"
--- OUTSIDE RECORDS SUMMARY | ~2019-04-12 | XMS | Encounter Summary ---
Demographics + + + | Address | [address] | | | [place] [address] | + + + | Home Phone [...] | Author | [facility] | | | and Ohana | + + + | Organization | [facility] | | | [...] | | | | | [place] [address] | | + + + + + | Hunter Jackson | ECON | [place] | | + + + + + | Wes Jackson | ECON | [place], [place] | | + + + + + | Oziel Jackson | ECON | [place], [place] | | + + + + + Care Team Providers + +------+ + | Care Grain Processor Name | Role | Phone | [...] + + | 10/06/ | Telephone | [facility] | Rodolfo Cruz, | Medication Prior | | 2013 | | MEDICINE [facility] Sravan | MD [address] | Authorization | | | | [place] | [place] [address] | ([employer]ax[employer]) | | | | [place] [address] | [address] | | | | | [phone] | | | +--------+ + + + [...] STREETER | | | | | | [address] | | | | | | | | +--------+---------+ + + + | 11/21/ | Office | Cardiology | Yesi, | | | 2019 | Visit | | JOSE ALBERTO Linder [address] | | | | | | [place] | | | | | | [place] [address] | | | | | | [phone] | | | | | | | | +--------+---------+ + + + documented as of this encounter Visit Diagnoses Not on filedocumented in this encounter"
--- OUTSIDE RECORDS SUMMARY | ~2019-04-12 | XMS | Encounter Summary ---
Demographics + + + | Address | [address] | | | [place] [address] | + + + | Home Phone [...] | Author | [facility] | | | and Ohana | + + + | Organization | [facility] [...] [place] | | | | | [place] [address] | | + + + + + | Hunter Jackson | ECON | [place] | | + + + + + | Wes Jackson | ECON | [place], [place] | | + + + + + | Oziel Jackson | ECON | [place], [place] | | + + + + + Care Team Providers + +------+ + | Care Piece Meat Trimmer Name | Role | Phone | [...] | Cervical | [place], | [address] | | | | | radiculopath | Harsha Moreno MD | [place], | | | | | y | [address] | [place] | | | | | Procedures | [address] [place] | [address] | | | | | [place] NJ[place] | [place] | Phone: | | | | | DX/THER SBST | [address] | [phone] | | | | | INTRLMNR | Phone: | Fax: | | | | | CRV/THRC | [phone] | [phone] | | | | | W/IMG GDN | Fax: | | | | | | [place] | [phone] | | | | | | TRIAMCINOLON [...] + + | 04/28/ | Hospital | [facility] | Harsha Selby | Cervical | | 2017 | Encounter | MED CTR XRAY [address] | T, [address] | radiculopathy; DDD | | | | [address] [place] | [place], [place] | (degenerative disc | | | | [place] [address] | [id number] | disease), cervical | | | | [phone] | | | | | | | Assistant Passenger Locomotive EngineerRenetta | | +--------+ + + + + [...] | | | | | | [place] [address] | | | | | | [phone] | | | | | | | [...]
--- OUTSIDE RECORDS SUMMARY | ~2019-04-12 | XMS | Encounter Summary ---
Demographics + + + | Address | [address] | | | [place] [address] | + + + | Home Phone [...] | Author | [facility] | | | and Ohana | + + + | Organization | [facility] | | | [...] | | | | | [place] [address] | | + + + + + | Hunter Jackson | ECON | [place] | | + + + + + | Wes Jackson | ECON | [place], [place] | | + + + + + | Oziel Jackson | ECON | [place], [place] | | + + + + + Care Team Providers + +------+ + | Care Manufacturing Operator Name | Role | Phone | [...] | 10/11/ | Refill | [facility] | Rodolfo Cruz, | Medication Refill | | 2015 | | MEDICINE [address] | MD [address] | | | | | [place] | [place] [address] | | | | | [place] [address] | [address] | | | | | [phone] | | | +--------+--------+ + + + [...] STREETER | | | | | | [address] | | | | | | | | +--------+---------+ + + + | 11/21/ | Office | Cardiology | Yesi, | | | 2019 | Visit | | JOSE ALBERTO Linder [address] | | | | | | [place] | | | | | | [place] [address] | | | | | | [phone] | | | | | | | | +--------+---------+ + + + documented as of this encounter Visit Diagnoses + + | Diagnosis | + + | Pain Generalized pain | + + documented in this encounter"
--- OUTSIDE RECORDS SUMMARY | ~2019-04-12 | XMS | Encounter Summary ---
Demographics + + + | Address | [address] | | | [place] [address] | + + + | Home Phone [...] | Author | [facility] | | | and Ohana | + + + | Organization | [facility] [...] | | | | | [place] [address] | | + + + + + | Hunter Jackson | ECON | [place] | | + + + + + | Wes Jackson | ECON | [place], [place] | | + + + + + | Oziel Jackson | ECON | [place], [place] | | + + + + + Care Team Providers + +------+ + | Care Smoking Pipe Maker Name | Role | Phone [...] + | 12/29/ | Office | [facility] | Rodolfo Cruz, | Hypothyroidism | | 2013 | Visit | MEDICINE [place] | [address] | (Primary Dx); | | | | [address] | [place], [place] | Bronchitis; | | | | [place] | [address] | Osteoarthritis; | | | | [address] | | Hypertension; TIA; | | | | [phone] | | Hyperlipidemia; | | | | [...] is no ear pain. [place]. 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
--- OUTSIDE RECORDS SUMMARY | ~2019-04-12 | XMS | Encounter Summary ---
Demographics + + + | Address | [address] | | | [place] [address] | + + + | Home Phone [...] + + | Author | [facility] | | | and Ohana | + + + | Organization | [facility] | | | and hOana | + + + | Address | Unknown | + + + | Phone | Unavailable | + + + Support + + + + + | Name | Relationship | Address | Phone | + + + + + | Osmin Jackson | ECON | [address] | | | | | [place] [address] | | + + + + + | Hunter Jackson | ECON | [place] | | + + + + + | Wes Jackson | ECON | [place], [place] | | + + + + + | Oziel Jackson | ECON | [place], [place] | | + + + + + Care Team Providers + +------+ + | Care Channel Executive Name | Role | Phone | [...] | | | [place], | [facility], | | | | | [place] [address] | [place] [address] | | | | | [phone] | [phone] | | | | | | | [...] STREETER | | | | | | [address]82 | | | | | | | | +--------+---------+ + + + | 11/21/ | Office | Cardiology | Yesi, | | | 2019 | Visit | | JOSE ALBERTO Linder [address] | | | | | | [place] | | | | | | [place] [address] | | | | | | [phone] | | | | | | | | +--------+---------+ + + + documented as of this encounter Visit Diagnoses Not on filedocumented in this encounter"
--- OUTSIDE RECORDS SUMMARY | ~2019-04-12 | XMS | Encounter Summary ---
Demographics + + + | Address | [address] | | | [place] [address] | + + + | Home Phone [...] Author | [facility] | | | and Ohana | + + + | Organization | [facility] | | [...] | | | | | [place] [address] | | + + + + + | Hunter Jackson | ECON | [place] | | + + + + + | Wes Jackson | ECON | [place], [place] | | + + + + + | Oziel Jackson | ECON | [place], [place] | | + + + + + Care Team Providers + +------+ + | Care Automobile Radio Repairer Name | Role | Phone | + +------+ + PCP | Unavailable | + +------+ + Encounter Details +--------+ + + + + | Date | Type | Department | Care Team | Description | +--------+ + + + + | 08/23/ | Hospital | [facility] | | | | 2010 | Encounter | MED CTR XRAY [address] | | | | | | [place] | | | | | | [place] [address] | | | | | | [phone] | | | +--------+ + + + [...] STREETER | | | | | | [address] | | | | | | | | +--------+---------+ + + + | 11/21/ | Office | Cardiology | Yesi | | | 2019 | Visit | | JOSE ALBERTO Linder [address] | | | | | | [place], | | | | | | [place] [address] | | | | | | [phone] | | | | | | | [...] Performed At | + + + | [facility] Diagnostic Imaging Department | [facility] | | [address] [facility] | [facility] | | MR CERVICAL SPINE WITH AND [...] Transcribed Date/Time: 08/23/2010 | | | 17:51 Laboratory Chief: <Electronically Signed by Lauri Moreno | | | MD Karina> 08/23/10 2106 | | + + + + ---------+ | Procedure Note | + ---------+ | Remington, Rad Conversion - 06/18/2013 2:[address] [facility] | | Diagnostic Imaging Department [address] [place] [address] | | MR CERVICAL SPINE WITH AND [...] 17:16 Transcribed Date/Time: | | 08/23/2010 17:51 Laboratory Chief: <Electronically Signed by Lauri Collins MD> | [...] 17:16 | |Transcribed Date/Time: 08/23/2010 17:51 | |Laboratory Chief: | |<Electronically Signed by Lauri Collins MD> [...]
--- OUTSIDE RECORDS SUMMARY | ~2019-04-12 | XMS | Encounter Summary ---
Demographics + + + | Address | [address] | | | [place] [address] | + + + | Home Phone [...] Author | [facility] | | | and Ohana | + + + | Organization | [facility] [...] | | | | | [place] [address] | | + + + + + | Hunter Jackson | ECON | [place] | | + + + + + | Wes Jackson | ECON | [place], [place] | | + + + + + | Oziel Jackson | ECON | [place], [place] | | + + + + + Care Team Providers + +------+ + | Care Remote Recruiter Name | Role | Phone | [...] | Lumbosacral | Bal, | [address] | | | | | spondylosis | Harsha Moreno MD | [place], | | | | | without | [address] | [place] | | | | | myelopathy | [facility] | [address] | | | | | Procedures | [place] | Phone: | | | | | [place] IN[place] | [address] | [phone] | | | | | DX/THER AGNT | Phone: | Fax: | | | | | PARAVERT | [phone] | [phone] | | | | | FACET JOINT, | Fax: | | | | | | LUMBAR/SAC, | [phone] | | | | | | 1ST LEVEL | | | | | | | [place] INJ | | | | | | [...] + + | 12/09/ | Hospital | [facility] | Yany, | Chronic low back | | 2015 | Encounter | MED CTR XRAY [address] | [address] | pain; DDD | | | | [place] | [facility], | (degenerative disc | | | | [place] [address] | [place] [address] | disease), lumbar; | | | | [phone] | [phone] | Facet arthritis of | | | | | | lumbar region | | | | | Senior Marketing Manager, [place] | | +--------+ + + + [...] | | | | | | [place] [address] | | | | | | [phone] | | | | | | | [...] 723.1 Soumya Jackson presents to the | [facility] | | fluoroscopy suite for fluoroscopically guided bilateral L4 medial [facility] | | branch blocks and bilateral [...] [address] | [place] | [phone] | | [facility] | | [address] | | | - IMAGING | | [...]
--- OUTSIDE RECORDS SUMMARY | ~2019-04-12 | XMS | Encounter Summary ---
Demographics + + + | Address | [address] | | | [place] [address] | + + + | Home Phone [...] Author | [facility] | | | and Ohana | + + + | Organization | [facility] | [...] | | | | | [place] [address] | | + + + + + | Hunter Jackson | ECON | [place] | | + + + + + | Wes Jackson | ECON | [place], [place] | | + + + + + | Oziel Jackson | ECON | [place], [place] | | + + + + + Care Team Providers + +------+ + | Care Hydroelectric Station Chief Name | Role | Phone | [...] | (Screening) (Log | | | | [place], | [place], | from 06/01/15 till | | | | [place] [address] | [place] [address] | 06/13/15) | | | | [phone] | [phone] | | | | | | | [...] STREETER | | | | | | [address] | | | | | | | | +--------+---------+ + + + | 11/21/ | Office | Cardiology | Yesi, | | | 2020 | Visit | | JOSE ALBERTO Linder [address] | | | | | | [place], | | | | | | [place] [address] | | | | | | [phone] | | | | | | | | +--------+---------+ + + + documented as of this encounter Visit Diagnoses + + | Diagnosis | + + | Essential hypertension - Primary Unspecified essential hypertension | + + documented in this encounter"
--- OUTSIDE RECORDS SUMMARY | ~2019-04-12 | XMS | Encounter Summary ---
Demographics + + + | Address | [address] | | | [place] [address] | + + + | Home Phone [...] + | Author | [facility] | | | and Ohana | + + + | Organization | [facility] [...] [place] | | | | | [place] [address] | | + + + + + | Hunter Jackson | ECON | [place] | | + + + + + | Wes Jackson | ECON | [place], [place] | | + + + + + | Oziel Jackson | ECON | [place], [place] | | + + + + + Care Team Providers + +------+ + | Care Chronic Disease Epidemiologist Name | Role | Phone | + [...] + + | 09/18/ | Telephone | [facility] | Irina Simms, | Appointment | | 2017 | | CARDIOLOGY [address] | [address] [place] | | | | | [place], | [place], | | | | | [place] [address] | [place] [address] | | | | | [phone] | [phone] | | | | | | | [...] | | | | | | [place] [address] | | | | | | [phone] | | | | | | | | +--------+---------+ + + + documented as of this encounter Visit Diagnoses Not on filedocumented in this encounter"
--- OUTSIDE RECORDS SUMMARY | ~2019-04-12 | XMS | Encounter Summary ---
Demographics + + + | Address | [address] | | | [place] [address] | + + + | Home Phone [...] | Author | [facility] | | | and Ohana | + + + | Organization | [facility] [...] | | | | | [place] [address] | | + + + + + | Hunter Jackson | ECON | [place] | | + + + + + | Wes Jackson | ECON | [place], [place] | | + + + + + | Oziel Jackson | ECON | [place], [place] | | + + + + + Care Team Providers + +------+ + | Care Machine Overhauler Name | Role | Phone | + [...] Pulmonary | Rodolfo Reilly MD | [address] | | | | | nodules | [address] | [place], | | | | | 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 | [place], [place] | Phone: | | | | | Procedures | [address] | [phone] | | | | | CT Chest w | Phone: | Fax: | | | | | Contrast | [phone] | [phone] | | | | | 02/16/14 | Fax: | | | | | | | [phone] | | +--------+--------+ + + + + [...] + + | 12/08/ | Office | [facility] | Rodolfo Cruz, | Pulmonary nodules | | 2013 | Visit | MEDICINE [address] [place] [address] | [address] | (Primary Dx); | | | | [place] | [place] [address] | Anemia; UGI bleed; | | | | [place] [address] | [address] | 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; | | | | [...] required: Born in [facility] since 1965 Marital status: Children: 6, 5 living, 10 grandchildren 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
--- OUTSIDE RECORDS SUMMARY | ~2019-04-12 | XMS | Encounter Summary ---
Demographics + + + | Address | [address] | | | [place] [address] | + + + | Home Phone [...] Author | [facility] | | | and Ohana | + + + | Organization | [facility] | | [...] S[place] | | | | | [place] [address] | | + + + + + | Hunter Jackson | ECON | [place] | | + + + + + | Wes Jackson | ECON | [place], [place] | | + + + + + | Oziel Jackson | ECON | [place], [place] | | + + + + + Care Team Providers + +------+ + | Care Sand And Gravel Plant Operator Name | Role | Phone [...] | carpometacarpal | | | | [address] [facility] | [place], [place] | (CMC) joint of right | | | | [place], [place] | [address] | thumb (Primary Dx); | | | | [address] | | Rotator cuff tear | | | | [phone] | | arthropathy of right | | [...] STREETER | | | | | | [address] | | | | | | | | +--------+---------+ + + + | 11/21/ | Office | Cardiology | Yesi, | | | 2019 | Visit | | JOSE ALBERTO Linder [address] | | | | | | [place], | | | | | | [place] [address] | | | | | | [phone] | | | | | | | [...]
--- OUTSIDE RECORDS SUMMARY | ~2019-04-12 | XMS | Encounter Summary ---
Demographics + + + | Address | [address] | | | [place] [address] | + + + | Home Phone [...] | Author | [facility] | | | and Ohana | + + + | Organization | [facility] [...] SWA[place] | | | | | [place] [address] | | + + + + + | Hunter Jackson | ECON | [place] | | + + + + + | Wes Jackson | ECON | [place], [place] | | + + + + + | Oziel Jackson | ECON | [place], [place] | | + + + + + Care Team Providers + +------+ + | Care Cable Installation Technician Name | Role | Phone | [...] + + | 10/16/ | Hospital | [facility] | Yesi, | | | 2018 | Encounter | MED CTR NUCLEAR | JOSE ALBERTO Linder [address] | | | | | MEDICINE [address] | [place], | | | | | [place], | [place] [address] | | | | | [place] [address] | [phone] | | | | | [phone] | | | | | | | Product AccountantRenetta | | +--------+ + + + + [...] STREETER | | | | | | [address] | | | | | | | | +--------+---------+ + + + | 11/21/ | Office | Cardiology | Yesi, | | | 2019 | Visit | | JOSE ALBERTO Linder [address] | | | | | | [place], | | | | | | [place] [address] | | | | | | [phone] | | | | | | | [...] PDT | | | | | Starting [facility] 10/16/17 at 1416, For | | | [...] | | | | | | Starting [facility] 10/16/17 at 1416, For | | | | | | | 1 dose, Nuclear Medicine | | | | | | + +-------+ + +---+---+ +---+---+ | | | +---+---+ documented in this encounter"
--- OUTSIDE RECORDS SUMMARY | ~2019-04-12 | XMS | Encounter Summary ---
Demographics + + + | Address | [address] | | | [place] [address] | + + + | Home Phone [...] | Author | [facility] | | | and Ohana | + + + | Organization | [facility] [...] [place] | | | | | [place] [address] | | + + + + + | Hunter Jackson | ECON | [place] | | + + + + + | Wes Jackson | ECON | [place], [place] | | + + + + + | Oziel Jackson | ECON | [place], [place] | | + + + + + Care Team Providers + +------+ + | Care Clinical Interviewer Name | Role | Phone | + [...] | | | | | [place] | [address] | | | | | | stenosis of | [place] | | | | | | cervical | [address] | | | | | | region DDD | Phone: | | | | | | (degenerativ | [phone] | | | | | | e disc | Fax: | | | | | | disease), | [phone] | | | | | | cervical [...] + + | 07/23/ | Telephone | [facility] [place] | Yany, | Results, Imaging | | 2017 | | PHYSIATRY [address] | [address] | (Results) | | | | [place], | [facility], | | | | | [place] [address] | [place] [address] | | | | | [phone] | [phone] | | | | | | | [...] | | | | | | [place] [address] | | | | | | [phone] | | | | | | | [...]
--- OUTSIDE RECORDS SUMMARY | ~2019-04-12 | XMS | Encounter Summary ---
Demographics + + + | Address | [address] | | | [place] [address] | + + + | Home Phone [...] Author | [facility] | | | and [place] | + + + | Organization | [facility] [...] | | | | | [place] [address] | | + + + + + | Hunter Jackson | ECON | [place] | | + + + + + | Wes Jackson | ECON | [place], [place] | | + + + + + | Oziel Jackson | ECON | [place], [place] | | + + + + + Care Team Providers + +------+ + | Care Tire Regrooving Machine Operator Name | Role | Phone | + +------+ + PCP | Unavailable | + +------+ + Encounter Details +--------+ + + + + | Date | Type | Department | Care Team | Description | +--------+ + + + + | 02/19/ | [facility] | [facility] | Rodolfo Cruz, | | | 2010 | Encounter | MED CTR LABORATORY | [address] | | | | | [address] | [place], [place] | | | | | [place] | [address] | | | | | [address] | | | | | | [phone] | | | +--------+ + + + [...] STREETER | | | | | | [address] | | | | | | | | +--------+---------+ + + + | 11/21/ | Office | Cardiology | Yesi, | | | 2019 | Visit | | JOSE ALBERTO Linder [address] | | | | | | [place], | | | | | | [place] [address] | | | | | | [phone] | | | | | | | [...] [address] | [place] | [phone] | | [facility] | | [address] | | | - LABORATORY | | | | + + + + + | [facility] | [address] | [place] | | | [facility] | | [address] | | | - LABORATORY | | [...] - 1.030 | [facility] | | | [place] | | | [facility] | | [...] ST. | [address] | [place] | [phone] | | [facility] | | [address] | | | - LABORATORY | | | | + + + + + | [facility] | [address] | [place] | | | [facility] | | [address] | | | - LABORATORY | | [...] performed on the Adebayo | uIU/mL | [facility] | | | | [place] [facility] | | MEDICAL | | | [...] + | [facility] | [address] | [place] | [phone] | | [facility] | | [address] | | | - LABORATORY | | | | + + + + + | [facility] | [address] | [place], [place] | | | [facility] | | [address] | | | - LABORATORY | | [...] [address] | [place] | [phone] | | [facility] | | [address] | | | - LABORATORY | | | | + + + + + | [facility] | [address] | [place] | | | [facility] | | [address] | | | - LABORATORY | | [...] | >60Comment: For | >60 mL/min/A | [facility] | | | GFR | -Americans, | [...] + | [facility] | [address] | [place] | [phone] | | [facility] | | [address] | | | - LABORATORY | | | | + + + + + | [facility] | [address] | [place] | | | [facility] | | [address] | | | - LABORATORY | | [...] [address] | [place] | [phone] | | [facility] | | [address] | | | - LABORATORY | | | | + + + + + | [facility] | [address] | [place] | | | [facility] | | [address] | | | - LABORATORY | | | | + + + + + documented in this encounter Visit Diagnoses Not on filedocumented in this encounter"
--- OUTSIDE RECORDS SUMMARY | ~2019-04-12 | XMS | Encounter Summary ---
Demographics + + + | Address | [address] | | | [place] [address] | + + + | Home Phone [...] | [facility] | | | and [place] | + + + | Organization | [facility] [...] [place] | | | | | [place] [address] | | + + + + + | Hunter Jackson | ECON | [place] | | + + + + + | Wes Jackson | ECON | [place], [place] | | + + + + + | Oziel Jackson | ECON | [place], [place] | | + + + + + Care Team Providers + +------+ + | Care Respiratory Medicine Physician Name | Role | Phone [...] | [address] | [place] [address] | | | | | [place], [place] | [phone] | | | | | [address] | | | | | | [phone] | | | +--------+ + + + [...] | | | | | | [place] [address] | | | | | | [phone] | | | | | | | | +--------+---------+ + + + documented as of this encounter Visit Diagnoses Not on filedocumented in this encounter"
--- OUTSIDE RECORDS SUMMARY | ~2019-04-12 | XMS | Encounter Summary ---
Demographics + + + | Address | [address] | | | [place] [address] | + + + | Home Phone [...] + | Author | [facility] | | | and [place] | + + + | Organization | [facility] | [...] | | | | | [place] [address] | | + + + + + | Hunter Jackson | ECON | [place] | | + + + + + | Wes Jackson | ECON | [place], [place] | | + + + + + | Oziel Jackson | ECON | [place], [place] | | + + + + + Care Team Providers + +------+ + | Care Dining Room Host Name | Role | Phone | [...] | [address] | | | | | [address] | | | | | | [phone] | | | +--------+--------+ + + + [...] | | | | | | [place] [address] | | | | | | [phone] | | | | | | | | +--------+---------+ + + + documented as of this encounter Visit Diagnoses Not on filedocumented in this encounter"
--- OUTSIDE RECORDS SUMMARY | ~2019-04-12 | XMS | Encounter Summary ---
Demographics + + + | Address | [address] | | | [place] [address] | + + + | Home Phone [...] [facility] | | | and [place] | + + + | Organization | [facility] | | [...] [place] | | | | | [place] [address] | | + + + + + | Hunter Jackson | ECON | [place] | | + + + + + | Wes Jackson | ECON | [place], [place] | | + + + + + | Oziel Jackson | ECON | [place], [place] | | + + + + + Care Team Providers + +------+ + | Care Asphalt Paving Supervisor Name | Role | Phone | [...] | JOSE ALBERTO Linder | [address] | | | | | type | [address] | [place], | | | | | Procedures | [place] | [place] | | | | | [place] Nuclear | [place], | [address] | | | | | Stress Test | [place] | Phone: | | | | | (Vasodilator | [address] | [phone] | | | | | ) CHG | Phone: | Fax: | | | | | MYOCARDIAL | [phone] | [phone] | | | | | SPECT | Fax: | | | | | | MULTIPLE | [phone] | | | | | | STUDIES [...] + + | 10/16/ | Hospital | [facility] | [place], | Chest pain, | | 2018 | Encounter | MED CTR NUCLEAR | Niyah, DIRECTOR OF SPECIAL EVENTS [address] | unspecified type | | | | MEDICINE [address] | [place], | | | | | [place] | [place] [address] | | | | | [place] [address] | [phone] | | | | | [phone] | | | +--------+ + + + [...] STREETER | | | | | | [address] | | | | | | | | +--------+---------+ + + + | 11/21/ | Office | Cardiology | Yesi, | | | 2020 | Visit | | JOSE ALBERTO Linder [address] | | | | | | [place], | | | | | | [place] [address] | | | | | | [phone] | | | | | | | [...] 76 %. Signed by: Irina Simms MD [facility] | | | 10/16/2017, 14:56 | | + + + + + --+ | Narrative | Performed At | + + --+ | | [facility] | | NUCLEAR MEDICINE STRESS TEST REPORT Patient Name: Soumya Jackson | | | Study Date: 10/16/2017 Primary Care Provider: FLORA Morgan MRN: | | | [id number] : 1935 Age: 82 y.o. Gender: female [...] | | | | | | Starting [facility] 10/16/17 at 0947, For | | | | | | | 1 dose, Nuclear Medicine | | | | | | + +--------+ + +------+------+ +---+---+ | | | +---+---+ documented in this encounter"
--- OUTSIDE RECORDS SUMMARY | ~2019-04-12 | XMS | Encounter Summary ---
Demographics + + + | Address | [address] | | | [place] [address] | + + + | Home Phone [...] + | Author | [facility] | | | and [place] | + + + | Organization | [facility] | | | [...] | | | | | [place] [address] | | + + + + + | Hunter Jackson | ECON | [place] | | + + + + + | Wes Jackson | ECON | [place], [place] | | + + + + + | Oziel Jackson | ECON | [place], [place] | | + + + + + Care Team Providers + +------+ + | Care Eligibility And Occupancy Interviewer Name | Role | Phone | + +------+ + | Rodolfo Cruz MD | PCP | | + +------+ + Encounter Details +--------+ + + + + | Date | Type | Department | Care Team | Description | +--------+ + + + + | 01/03/ | Hospital | [facility] | Rodolfo Cruz, | Urticaria, chronic | | 2016 | Encounter | MED CTR LABORATORY | MD [address] | | | | | [address] | [place], [place] | | | | | [place] | [address] | | | | | [address] | | | | | | [phone] | | | +--------+ + + + [...] + + + +---------+ + + | Von [place]y 3 1000 MG | Take by mouth. [...] 2019 | Visit | | MD Danny [address] | | | | | | [place] | | | | | | [address] | | | | | | | | +--------+---------+ + + + | 11/21/ | Office | Cardiology | Yesi, | | | 2019 | Visit | | JOSE ALBERTO Linder [address] | | | | | | [place] | | | | | | [place] [address] | | | | | | [phone] | | | | | | | [...] [address] | [place] | [phone] | | [facility] | | [address] | | | - LABORATORY | | [...] [place] | | | | | | [address] | | | | + + + [...] [address] | [place] [address] | [phone] | + + + + + DNA [...] | | | | | [place] [address] | | | | + + + [...] [address] | [place] [address] | [phone] | + + + + + CBC [...] [address] | [place] | [phone] | | [facility] | | [address] | | | - LABORATORY | | | | + + + + + documented in this encounter Visit Diagnoses + + | Diagnosis | + + | Urticaria, chronic Other specified urticaria | + + documented in this encounter"
[~2019-04-12 20:18] MED LIST changes: +CYMBALTA20 MG PO; +ISOSORBIDE MONO30 MG PO
--- OUTSIDE RECORDS SUMMARY | 2019-04-12 20:20 | XMS ---
PreManage Notification: JACLYN ZURITA Security Rn Digestive Events No recent Security Events currently on file CRITERIA MET - PDMP CARE PROVIDERS MARCO ANTONIO HAWKINS Physician Power Shovel Engineer 08/03/2018-Current PHONE: Unknown Armando has no Care Guidelines for this patient. EJulio VISIT COUNT (12 MO.) 2 [facility] TOTAL 2 NOTE: Visits indicate total known visits. ED/UCC VISIT TRACKING (12 MO.) 04/12/2019 20:19 [facility] [place] TYPE: Emergency COMPLAINT: - BACK PAIN 08/01/2018 15:29 [facility] [place] TYPE: Emergency COMPLAINT: - NOT FEELING HERSELF,WEAKNESS,CHEST DISCOMFORT DIAGNOSES: - Other prison (current) drug therapy - Viral infection, unspecified - Prsnl hx of TIA (TIA), and cereb infrc w/o resid deficits - Other nonmedicinal substance allergy status - half-way (current) use of aspirin - Weakness - Essential (primary) hypertension - Allergy status to penicillin - Allergy status to analgesic agent status INPATIENT VISIT TRACKING (12 MO.) No inpatient visits to display in this time frame [id number]
== END 2019-04-12 23:55 | disposition home or self-care (01) ==
LOC: ED 20:18
DX: M48.54XA Collapsed vertebra, not elsewhere classified, thoracic region, initial encounter for fracture (principal); I10 Essential (primary) hypertension; Z86.73 Personal history of transient ischemic attack (TIA), and cerebral infarction without residual deficits; Z87.891 Personal history of nicotine dependence; Z88.0 Allergy status to penicillin; Z91.048 Other nonmedicinal substance allergy status; Z88.8 Allergy status to other drugs, medicaments and biological substances; Z79.899 Other long term (current) drug therapy; Z79.82 Long term (current) use of aspirin; Z79.891 Long term (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
CPT/HCPCS: 72070; 96372; 99283-25; J1885

== ENCOUNTER 2019-05-18 16:47 | Emergency (ER) | payer MEDICARE, OTHER ==
[~2019-05-18] VITALS: Ht 165.1 cm; Wt 87.1 kg
--- OUTSIDE RECORDS SUMMARY | ~2019-05-18 | XMS | Encounter Summary ---
Demographics + + + | Address | [address] | | | [place] [address] | + + + | Home Phone | | + + + | Preferred Language | Unknown | + + + | Marital Status | | + + + | Jain Affiliation | Unknown | + + + | Race | Unknown | + + + | Ethnic Group | Unknown | + + + Author + + + | Author | [facility] | | | and [place] | + + + | Organization | [facility] | | | and [place] | + + + | Address | Unknown | + + + | Phone | Unavailable | + + + Support + + + + + | Name | Relationship | Address | Phone | + + + + + | Osmin Jackosn | ECON | [address] | | | | | [place] [address] | | + + + + + | Hunter Jackson | ECON | [place] | | + + + + + | Wes Jackson | ECON | [place], [place] | | + + + + + | Oziel Jackson | ECON | [place], [place] | | + + + + + Care Team Providers + +------+ + | Care Corporate Travel Consultant Name | Role | Phone | + +------+ + | Kellie Gunderson | PCP | | + +------+ + Reason for Visit + + + | Reason | Comments | + + + | Injections | Follow Up Right Shoulder and Right CMC Injection | + + + Encounter Details +--------+---------+ + + + | Date | Type | Department | Care Team | Description | +--------+---------+ + + + | 01/15/ | Office | [facility] | Ulysses Jensen, | Arthritis of | | 2018 | Visit | ORTHOPEDIC SURGERY | [address] [facility] | carpometacarpal | | | | [address] [facility] | [place] [facility], [place] | (CMC) joint of right | | | | [place], [place] | [address] | thumb (Primary Dx); | | | | [address] | | Rotator cuff tear | | | | [phone] | | arthropathy of right | | | | | | shoulder | +--------+---------+ + + + Social History [...] + + + | Blood Pressure | - | - | | + + + + + | Pulse | - | - | | + + + + + | Temperature | - | - | | + + + + + | Respiratory Rate | - | - | | + + + + + | Oxygen Saturation | - | - | | + + + + + | Inhaled Oxygen | - | - | | | Concentration | | | | + + + + + | Weight | 80.7 kg (178 lb) | 01/15/2018 10:59 AM | | | | | PDT | | + + + + + | Height | 165.1 cm (5' 5") | 01/15/2018 10:59 AM | | | | | PDT | | + + + + + | Body Mass Index | 29.62 | 01/15/2018 10:59 AM | | | | | PDT | | + + + + + documented in this encounter Progress Notes Ulysses Jensen MD - 01/15/2018 10:45 AM PDTPatient returns follow-up right shoulder pain and right first CMC arthritis She wishes to have injections in both Under sterile conditions today I injected the right shoulder subacromial space with Kenalog 40 mg and 3 cc of Naropin No conditions I injected the right first CMC joint with 1 cc of Celestone and 1 cc of Narop in She will return as needed documented in this encounter Plan of Treatment +--------+---------+ + + + | Date | Type | Specialty | Care Team | Description | +--------+---------+ + + + | 01/22/ | Office | Orthopedic Surgery | Ulysses Jensen, | | | 2019 | Visit | | MD [address] | | | | | | [place], [place] | | | | | | [address] | | | | | | | | +--------+---------+ + + + | 11/21/ | Office | Cardiology | Yesi, | | | 2019 | Visit | | JOSE ALBERTO Linder [address] | | | | | | [place], | | | | | | [place] [address] | | | | | | [phone] | | | | | | | | +--------+---------+ + + + documented as of this encounter Visit Diagnoses + + | Diagnosis | + + | Arthritis of carpometacarpal (CMC) joint of right thumb - Primary | + + | Rotator cuff tear arthropathy of right shoulder Traumatic arthropathy, shoulder | | region | + + documented in this encounter Administered Medications + +--------+ +------+------+ + | Medication Order | MAR | Action | Dose | Rate | Site | | | Action | Date | | | | + +--------+ +------+------+ + | betamethasone (CELESTONE | Given | 01/16/20 | 6 mg | | Other | | SOLUSPAN) injection 6 mg 6 mg, | | 18 11:11 | | | (Comment | | Intramuscular, ONCE, [facility] 01/15/18 | | AM PDT | | | ) | | at 1130, For 1 dose, Shake well. | | | | | | | Not for IV use., | | | | | | + +--------+ +------+------+ + +---+---+ | | | +---+---+ + +-------+ +-------+---+ + | triamcinolone acetonide | Given | 01/16/20 | 40 mg | | Shoulder | | (KENALOG-40) 40 mg/mL injection | | 18 11:12 | | | -Right | | 40 mg 40 mg, Intra-articular, | | AM PDT | | | | | ONCE, [facility] 01/15/18 at 1130, For 1 | | | | | | | dose, Shake well. Not for IV | | | | | | | use., | | | | | | + +-------+ +-------+---+ + +---+---+ | | | +---+---+ documented in this encounter
--- OUTSIDE RECORDS SUMMARY | ~2019-05-18 | XMS | Encounter Summary ---
Demographics + + + | Address | [address] | | | [place] [address] | + + + | Home Phone | | + + + | Preferred Language | Unknown | + + + | Marital Status | | + + + | Yarsanism Affiliation | Unknown | + + + | Race | Unknown | + + + | Ethnic Group | Unknown | + + + Author + + + | Author | [facility] | | | and [place] | + + + | Organization | [facility] | | | and [place] | + + + | Address | Unknown | + + + | Phone | Unavailable | + + + Support + + + + + | Name | Relationship | Address | Phone | + + + + + | Osmin Jackson | ECON | [address] | | | | | [place] [address] | | + + + + + | Hunter Jackson | ECON | [place] | | + + + + + | Wes Jackson | ECON | [place], [place] | | + + + + + | Oziel Jackson | ECON | [place], [place] | | + + + + + Care Team Providers + +------+ + | Care Refrigerating Engineer Name | Role | Phone | + +------+ + | Rodolfo Cruz MD | PCP | | + +------+ + Reason for Visit + + + | Reason | Comments | + + + | Follow-up | right shoulder and right cmc injection | + + + Encounter Details +--------+---------+ + + + | Date | Type | Department | Care Team | Description | +--------+---------+ + + + | 05/25/ | Office | [facility] [place] | Ulysses Jensen, | Osteoarthritis of | | 2016 | Visit | ORTHOPEDIC SURGERY | [address] | first | | | | [address] [facility] | [place] | carpometacarpal | | | | [place] | [address] | (CMC) joint of one | | | | [address] | | hand (Primary Dx); | | | | [phone] | | Rotator cuff | | | | | | syndrome of right | | | | | [...] documented as of this encounter Progress Notes Ulysses Jensen MD - 05/28/2015 7:56 PM PSTPatient returns for first cmc injection right hand and right shoulder injection Under sterile conditions I first injected her right hand first cmc joint with celestone 3mg and 1cc marcaine She tolerated well and then under sterile conditions I injected her right shoulder subacrom ial space with kenalog 40mg and 3cc marcaine She will return as needed documented in this encounter Plan of Treatment +--------+---------+ + + + | Date | Type | Specialty | Care Team | Description | +--------+---------+ + + + | 06/02/ | Office | Orthopedic Surgery | Ulysses Jensen, | | | 2019 | Visit | | MD [address] | | | | | | [place], [place] | | | | | | [address] | | | | | | | | +--------+---------+ + + + | 11/21/ | Office | Cardiology | Yesi, | | | 2019 | Visit | | JOSE ALBERTO Linder [address] | | | | | | [place], | | | | | | [place] [address] | | | | | | [phone] | | | | | | | | +--------+---------+ + + + documented as of this encounter Visit Diagnoses + + | Diagnosis | + + | Osteoarthritis of first carpometacarpal (CMC) joint of one hand - Primary | + + | Rotator cuff syndrome of right shoulder Disorders of bursae and tendons in shoulder | | region, unspecified | + + documented in this encounter"
--- OUTSIDE RECORDS SUMMARY | ~2019-05-18 | XMS | Encounter Summary ---
Demographics + + + | Address | [address] | | | [place] [address] | + + + | Home Phone | | + + + | Preferred Language | Unknown | + + + | Marital Status | | + + + | Baptism Affiliation | Unknown | + + + | Race | Unknown | + + + | Ethnic Group | Unknown | + + + Author + + + | Author | [facility] | | | and [place] | + + + | Organization | [facility] | | | and [place] | + + + | Address | Unknown | + + + | Phone | Unavailable | + + + Support + + + + + | Name | Relationship | Address | Phone | + + + + + | Osmin Jackson | ECON | [address] | | | | | [place] [address] | | + + + + + | Hunter Jackson | ECON | [place] | | + + + + + | Wes Jackson | ECON | [place], [place] | | + + + + + | Oziel Jackson | ECON | [place], [place] | | + + + + + Care Team Providers + +------+ + | Care Salvage Machine Operator Name | Role | Phone | + +------+ + | Rodolfo Cruz MD | PCP | | + +------+ + Reason for Visit + + + | Reason | Comments | + + + | Medication Refill | | + + + Encounter Details +--------+--------+ + + + | Date | Type | Department | Care Team | Description | +--------+--------+ + + + | 01/17/ | Refill | [facility] | Rodolfo Cruz, | Medication Refill | | 2016 | | [facility] [place] | [address] | | | | | [address] | [place] | | | | | [place] | [address] | | | | | [address] | | | | | | [phone] | | | +--------+--------+ + + + Social History + + [...] + + documented as of this encounter Plan of Treatment +--------+---------+ + + + | Date | Type | Specialty | Care Team | Description | +--------+---------+ + + + | 06/02/ | Office | Orthopedic Surgery | Ulysses Jensen, | | | 2019 | Visit | | MD [address] | | | | | | [place] | | | | | | [address] | | | | | | | | +--------+---------+ + + + | 11/21/ | Office | Cardiology | Yesi, | | | 2019 | Visit | | JOSE ALBERTO Linder [address] | | | | | | [place] | | | | | | [place] [address] | | | | | | [phone] | | | | | | | | +--------+---------+ + + + documented as of this encounter Visit Diagnoses + + | Diagnosis | + + | Pain - Primary Generalized pain | + + documented in this encounter"
--- OUTSIDE RECORDS SUMMARY | ~2019-05-18 | XMS | Encounter Summary ---
Demographics + + + | Address | [address] | | | [place] [address] | + + + | Home Phone | | + + + | Preferred Language | Unknown | + + + | Marital Status | | + + + | Lutheran Affiliation | Unknown | + + + | Race | Unknown | + + + | Ethnic Group | Unknown | + + + Author + + + | Author | [facility] | | | and [place] | + + + | Organization | [facility] | | | and [place] | + + + | Address | Unknown | + + + | Phone | Unavailable | + + + Support + + + + + | Name | Relationship | Address | Phone | + + + + + | Osmin Jackson | ECON | [address] | | | | | [place] [address] | | + + + + + | Hunter Jackson | ECON | [place] | | + + + + + | Wes Jackson | ECON | [place], [place] | | + + + + + | Oziel Jackson | ECON | [place], [place] | | + + + + + Care Team Providers + +------+ + | Care Medical Claims Processor Name | Role | Phone | + +------+ + | Gunderson, Kellie PA | PCP | | + +------+ + Reason for Referral Diagnostic/Screening (Routine) +--------+--------+ + + + + | Status | Reason | Specialty | Diagnoses / | Referred By | Referred To | | | | | Procedures | Contact | Contact | +--------+--------+ + + + + | Closed | | Radiology | Diagnoses | | [facility] | | | | | | Yesi, | Medicine | | | | | Hyperlipidem | JOSE ALBERTO Linder | [address] | | | | | ia, mixed | [address] | [place], | | | | | Chest pain, | [address] | [place] | | | | | unspecified | [place], | [address] | | | | | type | [place] | Phone: | | | | | Procedures | [address] | [phone] | | | | | [place] Nuclear | Phone: | Fax: | | | | | Stress Test | [phone] | [phone] | | | | | (Vasodilator | Fax: | | | | | | ) CHG | [phone] | | | | | | MYOCARDIAL | | | | | | | SPECT | | | | | | | MULTIPLE | | | | | | | STUDIES MT | | | | | | | CV STRS TST | | | | | | | XERS&/OR RX | | | | | | | CONT ECG W/O | | | | | | | I&R MT | | | | | | | CARDIAC | | | | | | | STRESS | | | | | | | TST,INTERP/R | | | | | | | EPT ONLY | | | +--------+--------+ + + + + Encounter Details +--------+ + + + + | Date | Type | Department | Care Team | Description | +--------+ + + + + | 07/16/ | Hospital | [facility] | Yesi, | Hyperlipidemia, | | 2017 | Encounter | [facility] | JOSE ALBERTO Linder [address] | mixed; Chest pain, | | | | MEDICINE [address] | [place], | unspecified type | | | | [place], | [place] [address] | | | | | [place] [address] | [phone] | | | | | [phone] | | | | | | | Director Employee CommunicationsRenetta | | +--------+ + + + + [...] + + + + | Weight | 80.3 kg (177 lb) | 07/16/2016 8:00 AM | | | | | PST | | + + + + + | Height | - | - | | + + + + + | Body Mass Index | 30.38 | 07/03/2016 3:10 PM | | | | | PST | | + + + + + documented in this encounter Medications at Time [...] + + + +---------+ + + | cetirizine | Take 10 mg by mouth | | 0 | | | | (ZYRTEC) 10 mg | as needed for | | | | 7 | | tablet | Allergies. | | | | | + + [...] + + + +---------+ + + | fenofibrate | TAKE ONE TABLET BY | 90 | 3 | 07/18/19 | | | (TRICOR) 48 mg | MOUTH EVERY DAY | tablet | | 16 | 7 | | tablet | | | | | | + + + +---------+ + + | furosemide (LASIX) | Take 1 tablet by | 90 | 1 | 12/12/19 | | | 20 mg tablet | mouth Daily. | tablet | | 16 | 7 | + + + +---------+ + + [...] + + + +---------+ + + | Iron 15 MG/1.5ML | Take by mouth Every | | 0 | | | | SUSP | other day. | | | | 7 | | | PurAbsorb | | | | | + + [...] + +---------+ + + | metoprolol | TAKE ONE-HALF TABLET | 45 | 3 | 04/17/20 | | | succinate | BY MOUTH EVERY DAY | tablet | | 15 | 7 | | (TOPROL-XL) 50 mg 24 | | | | | | | hr tablet | | | | | | [...] | | | | | | | + + + +---------+ + + | RaNITidine HCl | Take 1 tablet by | | 0 | | | | (RANITIDINE ACID | mouth Daily. | | | | 7 | | MANUFACTURING COORDINATOR PO) | | | | | | [...] [place]REET[place] | | | | | | [address] | | | | | | | | +--------+---------+ + + + | 11/21/ | Office | Cardiology | Yesi, | | | 2019 | Visit | | JOSE ALBERTO Linder [address] | | | | | | [place], | | | | | | [place] [address] | | | | | | [phone] | | | | | | | | +--------+---------+ + + + documented as of this encounter Procedures + +--------+ + + + | Procedure Name | Priori | Date/Time | Associated Diagnosis | Comments | | | ty | | | | + +--------+ + + + | NM NUCLEAR STRESS | Routin | 07/16/2016 | Hyperlipidemia, | Results for this | | TEST (PHARMACOLOGIC | e | 1:11 PM | mixed Chest pain, | procedure are in the | | - VASODILATOR) | | PST | unspecified type | results section. | + +--------+ + + + documented in this encounter Results NM Nuclear Stress Test (Vasodilator) (07/16/2016 1:11 PM PST) + + | Specimen | + + | | + + + + + | Impressions | Performed At | + + + | 1. Persantine EKG is negative. 2. Normal Persantine | [facility] | | Sestamibi myocardial perfusion study with a normal left ventricular | [facility] | | size and wall thickness. Preserved left ventricular systolic | [facility] | | function. LVEF by gated SPECT 75%. Signed by: Irina | - IMAGING | | MD Mendez [facility] 07/16/2016, 13:12 | | + + + + + + | Narrative | Performed At | + + + | NUCLEAR MEDICINE STRESS TEST REPORT | [facility] | | Patient Name: Soumya Jackson Study Date: 07/16/2016 Primary Care | [facility] | | Provider: FLORA Morgan : 1935 Age: | [facility] | | 80 y.o. Gender: female CLINICAL HISTORY/DIAGNOSIS: Chest | - IMAGING | | pain PERSANTINE SESTAMIBI STRESS TEST Indication: chest pain | | | Procedure: In the supine position, 45.7 mg of Persantine was | | | infused intravenously over 4 minutes. Blood pressure and EKG were | | | monitored every 1 minute. 5 mL of normal saline was utilized to | | | flush the IV line. 2.5 minutes later, 10.1 mCi sestamibi | | | intravenous injection. SPECT myocardial perfusion imaging was | | | acquired with wall motion analysis. Rest imaging was performed | | | using 34 mCi Sestamibi intravenous injection. Repeated SPECT | | | myocardial perfusion imaging was acquired with wall motion analysis. | | | At the end of the procedure, 75 mg of aminophylline was infused | | | intravenously. Hemodynamics: Heart rate baseline 64 beats per | | | minute, peak 60 beats per minute. Blood pressure baseline 150/73 | | | mmHg, peak 126/54 mmHg. EKG baseline underlying sinus rhythm, | | | occasional PVCs. Peak unchanged. Side Effects: None. | | | Arrhythmia: None. Persantine Sestamibi Myocardial Perfusion | | | Imaging Result: The Persantine Sestamibi tomographic images, | | | reviewed without the attenuation compensation resolution, revealed a | | | normal myocardial perfusion pattern as seen in short axis, vertical | | | long axis, and horizontal long axis projections. The left | | | ventricular cavity is normal. The rest imaging is also normal. | | | Gated SPECT reveals a normal left ventricular wall thickness | | | and motion. Preserved left ventricular systolic function. LVEF by | | | gated SPECT is 75%. | | + + + + + + + + | Performing | Address | City/State/Zipcode | Phone Number | | Organization | | | | + + + + + | [facility] | [address] | [place] | [phone] | | [facility] | | [address] | | | - IMAGING | | | | + + + + + documented in this encounter Visit Diagnoses + + | Diagnosis | + + | Hyperlipidemia, mixed Mixed hyperlipidemia | + + | Chest pain, unspecified type | + + documented in this encounter Administered Medications + +--------+ + +------+------+ | Medication Order | MAR | Action | Dose | Rate | Site | | | Action | Date | | | | + +--------+ + +------+------+ | technetium TC-99M sestamibi | Given | 07/17/19 | 10.1 | | | | (CARDIOLITE) injection | | 17 8:43 | -millicu | | | | millicurie 9 -millicurie, | | AM PST | kash | | | | Intravenous, ONCE PRN, Other, | | | | | | | Starting 07/16/16 at 0843, For | | | | | | | 1 dose, Nuclear Medicine | | | | | | + +--------+ + +------+------+ +---+---+ | | | +---+---+ documented in this encounter"
--- OUTSIDE RECORDS SUMMARY | ~2019-05-18 | XMS | Encounter Summary ---
Demographics + + + | Address | [address] | | | [place] [address] | + + + | Home Phone | | + + + | Preferred Language | Unknown | + + + | Marital Status | | + + + | Hoahaoism Affiliation | Unknown | + + + | Race | Unknown | + + + | Ethnic Group | Unknown | + + + Author + + + | Author | [facility] | | | and [place] | + + + | Organization | [facility] | | | and [place] | + + + | Address | Unknown | + + + | Phone | Unavailable | + + + Support + + + + + | Name | Relationship | Address | Phone | + + + + + | Osmin Jackson | ECON | [address] | | | | | [place] [address] | | + + + + + | Hunter Jackson | ECON | [place] | | + + + + + | Wes Jackson | ECON | [place], [place] | | + + + + + | Oziel Jackson | ECON | [place], [place] | | + + + + + Care Team Providers + +------+ + | Care Dry Mill Worker Name | Role | Phone | + +------+ + | Kellie Gundesron | PCP | | + +------+ + Reason for Visit +--------+ + | Reason | Comments | +--------+ + | Other | blood pressure low, question about medications | +--------+ + Encounter Details +--------+ + + + + | Date | Type | Department | Care Team | Description | +--------+ + + + + | 06/25/ | Telephone | [facility] [place] | Yesi, | Other (blood | | 2019 | | CARDIOLOGY [address] | JOSE ALBERTO Linder [address] | pressure low, | | | | [place], | [place], | question about | | | | [place] [address] | [place] [address] | medications) | | | | [phone] | [phone] | | | | | | | | +--------+ + + + [...] STREET[place] | | | | | | [id number] | | | | | | | | +--------+---------+ + + + | 11/21/ | Office | Cardiology | Yesi, | | | 2019 | Visit | | JOSE ALBERTO Linder [address] | | | | | | [place], | | | | | | [place] [address] | | | | | | [phone] | | | | | | | | +--------+---------+ + + + documented as of this encounter Visit Diagnoses Not on filedocumented in this encounter"
--- OUTSIDE RECORDS SUMMARY | ~2019-05-18 | XMS | Encounter Summary ---
Demographics + + + | Address | [address] | | | [place] [address] | + + + | Home Phone | | + + + | Preferred Language | Unknown | + + + | Marital Status | | + + + | Catholic Affiliation | Unknown | + + + | Race | Unknown | + + + | Ethnic Group | Unknown | + + + Author + + + | Author | [facility] | | | and [place] | + + + | Organization | [facility] | | | and [place] | + + + | Address | Unknown | + + + | Phone | Unavailable | + + + Support + + + + + | Name | Relationship | Address | Phone | + + + + + | Osmin Jackson | ECON | [address] | | | | | [place] [address] | | + + + + + | Hunter Jackson | ECON | [place] | | + + + + + | Wes Jackson | ECON | [place], [place] | | + + + + + | Oziel Jackson | ECON | [place], [place] | | + + + + + Care Team Providers + +------+ + | Care Weed Burner Name | Role | Phone | + +------+ + | Rodolfo Cruz MD | PCP | | + +------+ + Reason for Visit + + + | Reason | Comments | + + + | Labs Only | | + + + Encounter Details +--------+ + + + + | Date | Type | Department | Care Team | Description | +--------+ + + + + | 12/14/ | Telephone | [facility] | Rodolfo Cruz, | Labs Only | | 2012 | | MEDICINE [place] | [address] | | | | | [address] | [place] | | | | | [place] | [address] | | | | | [address] | | | | | | [phone] | | | +--------+ + + + [...] | | | | | | [place] [address] | | | | | | [phone] | | | | | | | | +--------+---------+ + + + documented as of this encounter Visit Diagnoses Not on filedocumented in this encounter"
--- OUTSIDE RECORDS SUMMARY | ~2019-05-18 | XMS | Encounter Summary ---
Demographics + + + | Address | [address] | | | [place] [address] | + + + | Home Phone | | + + + | Preferred Language | Unknown | + + + | Marital Status | | + + + | Jew Affiliation | Unknown | + + + | Race | Unknown | + + + | Ethnic Group | Unknown | + + + Author + + + | Author | [facility] | | | and [place] | + + + | Organization | [facility] | | | and [place] | + + + | Address | Unknown | + + + | Phone | Unavailable | + + + Support + + + + + | Name | Relationship | Address | Phone | + + + + + | Osmin Jackson | ECON | [address] | | | | | [place] [address] | | + + + + + | Hunter Jackson | ECON | [place] | | + + + + + | Wes Jackson | ECON | [place], [place] | | + + + + + | Oziel Jackson | ECON | [place], [place] | | + + + + + Care Team Providers + +------+ + | Care Quality Systems Engineer Name | Role | Phone | + +------+ + | Rodolfo Cruz MD | PCP | | + +------+ + Encounter Details +--------+ + + + + | Date | Type | Department | Care Team | Description | +--------+ + + + + | 12/20/ | Orders Only | [facility] [place] | Yany, | DDD (degenerative | | 2014 | | PHYSIATRY [address] | [address] | disc disease), | | | | [place], | [facility], | lumbar (Primary Dx) | | | | [place] [address] | [place] [address] | | | | | [phone] | [phone] | | | | | | | [...] | | | | | | [place] [address] | | | | | | [phone] | | | | | | | | +--------+---------+ + + + documented as of this encounter Visit Diagnoses + + | Diagnosis | + + | DDD (degenerative disc disease), lumbar - Primary Degeneration of lumbar or | | lumbosacral intervertebral disc | + + documented in this encounter"
--- OUTSIDE RECORDS SUMMARY | ~2019-05-18 | XMS | Encounter Summary ---
Demographics + + + | Address | [address] | | | [place] [address] | + + + | Home Phone | | + + + | Preferred Language | Unknown | + + + | Marital Status | | + + + | Confucianism Affiliation | Unknown | + + + | Race | Unknown | + + + | Ethnic Group | Unknown | + + + Author + + + | Author | [facility] | | | and [place] | + + + | Organization | [facility] | | [...] [address] | | | | | [place] [address] | | + + + + + | Hunter Jackson | ECON | [place] | | + + + + + | Wes Jackson | ECON | [place], [place] | | + + + + + | Oziel Jackson | ECON | [place], [place] | | + + + + + Care Team Providers + +------+ + | Care Acoustic Engineer Name | Role | Phone | + +------+ + | Kellie Gunderson | PCP | | + +------+ + Reason for Visit +--------+ + | Reason | Comments | +--------+ + | Other | | +--------+ + Encounter Details +--------+ + + + + | Date | Type | Department | Care Team | Description | +--------+ + + + + | 09/17/ | Telephone | [facility] | Ulysses Jensen, | Other | | 2016 | | ORTHOPEDIC SURGERY | [address] [facility] | | | | | [address] [facility] | [place] | | | | | [place] | [address] | | | | | [address] | | | | | | [phone] | | | +--------+ + + + [...] | Visit | | JOSE ALBERTO Linder | | | | | | [place] | | | | | | [place] [address] | | | | | | [phone] | | | | | | | | +--------+---------+ + + + documented as of this encounter Visit Diagnoses Not on filedocumented in this encounter"
--- OUTSIDE RECORDS SUMMARY | ~2019-05-18 | XMS | Encounter Summary ---
Demographics + + + | Address | [address] | | | [place] [address] | + + + | Home Phone | | + + + | Preferred Language | Unknown | + + + | Marital Status | | + + + | Episcopalian Affiliation | Unknown | + + + | Race | Unknown | + + + | Ethnic Group | Unknown | + + + Author + + + | Author | [facility] | | | and [place] | + + + | Organization | [facility] | | | and [...] | | | | | [place] [address] | | + + + + + | Hunter Jackson | ECON | [place] | | + + + + + | Wes Jackson | ECON | [place], [place] | | + + + + + | Oziel Jackson | ECON | [place], [place] | | + + + + + Care Team Providers + +------+ + | Care Scrub Tech Name | Role | Phone | + +------+ + | Rodolfo Cruz MD | PCP | | + +------+ + Reason for Visit +--------+ + | Reason | Comments | +--------+ + | Melena | | +--------+ + Auth/Cert +--------+--------+ + + + + | Status | Reason | Specialty | Diagnoses / | Referred By | Referred To | | | | | Procedures | Contact | Contact | +--------+--------+ + + + + | Closed | | | Diagnoses | | [facility] | | | | | Abdominal | | [address] | | | | | pain, right | | [address] [place] | | | | | upper | | [place], [place] | | | | | quadrant | | [id number] | | | | | Back pain | | Phone: | | | | | Hyperlipidem | | [phone] | | | | | ia Upper GI | | Fax: | | | | | bleeding | | [phone] | | | | | Hypothyroidi | | | | | | | sm | | | | | | | Hypertension | | | | | | | Asthma | | | | | | | Anemia due | | | | | | | to blood | | | | | | | loss, acute | | | | | | | Duodenal | | | | | | | ulcer | | | | | | | | | | +--------+--------+ + + + + Encounter Details +--------+ + + + + | Date | Type | Department | Care Team | Description | +--------+ + + + + | 11/14/ | Hospital | [facility] | Freddy, | Upper GI bleeding | | 2014 - | Encounter | [facility] | Rodolfo Desir MD [address] | (Primary Dx); | | | | [address] [place] | [address] [place] | Duodenal ulcer; | | 11/17/ | | [place] [address] | [place] [address] | Asthma; | | 2013 | | [phone] | [phone] | Hyperlipidemia; Back | | | | | | pain; | | | | | Peng Godinez, | Hypothyroidism; | | | | | [address] | Hypertension; | | | | | [place], [place] | Abdominal pain, | | | | | [address] | right upper | | | | | | quadrant; Anemia due | | | | | | to blood loss, | | | | | | acute | +--------+ + + + + Social [...] + + + | Blood Pressure | 138/61 | 11/17/2013 8:00 AM | | | | | PDT | | + + + + + | Pulse | 57 | 11/17/2013 8:00 AM | | | | | PDT | | + + + + + | Temperature | 36.7 C (98.1 F) | 11/17/2013 8:00 AM | | | | | PDT | | + + + + + | Respiratory Rate | 16 | 11/17/2013 8:00 AM | | | | | PDT | | + + + + + | Oxygen Saturation | 99% | 11/17/2013 8:00 AM | | | | | PDT | | + + + + + | Inhaled Oxygen | - | - | | | Concentration | | | | + + + + + | Weight | 89.8 kg (198 lb) | 11/14/2013 11:09 AM | | | | | PDT | | + + + + + | Height | 167.6 cm (5' 6") | 11/14/2013 11:09 AM | | | | | PDT | | + + + + + | Body Mass Index | 31.96 | 11/14/2013 11:09 AM | | | | | PDT | | + + + + + documented in this encounter Discharge Summaries Leon Cherry MD - 11/17/2013 8:39 AM PDTFormatting of this note might be different f rom the original. [facility] Service: Hospitalist Physician Discharge Summary Pt: Soumya Jackson AGE/SEX: 78 y.o. female ROOM: [address] [place] [address] PCP: Rodolfo Cruz : 1935 Admit date: 11/14/2013 Discharge date and time: 11/17/2013 8:39 Admitting Physician: Peng Godinez MD Discharge Physician: Leon Cherry MD Consults: Dr. Long Primary Discharge Diagnoses: Anemia due to blood loss, acute [285 Abdominal pain, right upper quadrant [789.01] Hyperlipidemia [272.4] Upper GI bleeding [578.9] Hypothyroidism [244.9] Hypertension [401.9] Asthma [493.90] Duodenal ulcer [532.90] GI bleed [578.9] (GI bleed [578.9]) Secondary Discharge Diagnoses: Nill Discharged Condition: stable Significant Diagnostic Studies: CT IMPRESSION - Nonspecific areas of mild groundglass opacification without associated lytic or overt monika l blastic stones seen in the right side of the manubrium and left humeral head, correspondin g to the areas of abnormality on the prior bone scan, with 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 No evidence of primary disease to suggest possible sourc e for metastasis. Recommend short-term follow-up contrast-enhanced MRI of the chest and left shoulder, to include STIR sequences in three months HPI and Hospital Course: 78 years old female past medical history of hypothyroidism, benign hypertension, hyperlipid emia came to the hospital with weakness due to upper GI bleed(duodenal ulcers) leading to ac bishop paiute blood loss anemia. She is status post EGD confirming duodenal ulcers UGIB (upper gastrointestinal bleed) leading to Acute Anemia due to blood loss, acute: Status post EGD with the duodenal ulcers. She's already taking PPIs, we're going to contin ue with PPIs I will hold the aspirin as well. She should follow her hemoglobin in 3-4 days. I will also write Iron Benign HTN: Blood pressure well controlled Continue home BP meds amlodipine and metoprolol Hyperlipidemia: Continue lipid lowering agent fenofibrate . Low cholesterol diet. Daily exercise. Hypothyroidism: Will continue with thyroid supplement She Had no CP, SOB, N/V, Diarrhea, Abdominal pain or NGUYEN. No constipation or change in bowel habits. No orthopnea or PND. Appetite is good without abdominal bloating. No cough or fever . No dizziness, lightheadedness or any symptoms suggestive of stroke. Discharge Vitals: Filed Vitals: 11/16/13 2030 11/16/13 2100 11/17/13 0419 11/17/13 0800 BP: 133/57 138/61 Pulse: 63 62 51 57 Temp: 37 C (98.6 F) 36.7 C (98.1 F) TempSrc: Oral Oral Resp: 20 18 16 Height: Weight: SpO2: 97% 97% 96% 99% Discharge Exam: Constitutional: Alert and oriented to person, place, and time. Appears well-developed and w ell-nourished. Cardiovascular: Normal rate, regular rhythm, normal heart sounds with S1 and S2 and intact distal pulses. Exam reveals no gallop and no friction rub. 3/6HSM Pulmonary/Chest: Effort normal and breath sounds normal. No stridor. No respiratory distres s. no wheezes. no rales. exhibits no tenderness. Abdominal: Soft. Bowel sounds are normal. exhibits no distension and no mass. There is no t enderness. There is no rebound and no guarding. Musculoskeletal: Normal range of motion.exhibits no tenderness. exhibits no edema. Neurological: Alert and oriented to person, place, and time. Has normal reflexes. display s normal reflexes. No cranial nerve deficit. Exhibits normal muscle tone. Coordination norm al. Skin: Skin is warm and dry. No rash noted. No erythema. No pallor. Psychiatric: Has a normal mood and affect. Behavior is normal. Judgment normal. LABS: Lab 11/17/13 0603 11/16/13 2348 11/16/13 1811 WBC 11.2* 13.1* 14.7* HGB 8.3* 7.8* 8.5* HCT 24.8* 23.7* 26.2* PLT 414 414 462* NEUTOPHILPCT -- -- -- MONOPCT -- -- -- Lab 11/17/13 0603 11/16/13 0526 11/15/13 0631 NA 139 140 137 K 3.8 3.9 3.9 CL 107 108 104 CO2 24 23* 24 BUN 7 10 16 CREATININE -- -- -- CALCIUM 9.0 8.5 8.2* LABALBU -- -- -- BILITOT -- -- -- ALKPHOS -- -- -- ALT -- -- -- AST -- -- -- GLUCOSE -- -- -- Disposition: Home Patient Instructions: Medication List As of 11/17/2013 8:39 START taking these medications ferrous sulfate 325 mg tablet Take 1 tablet by mouth 2 times daily. CONTINUE taking these medications albuterol 90 mcg/puff inhaler Commonly known as: VENTOLIN HFA 2 puff po q 4 hours prn amLODIPine 5 mg tablet Commonly known as: NORVASC Take 1 tablet by mouth Daily. CITRACAL MAXIMUM PO TABS Take one by mouth three times daily. cyanocobalamin 1000 MCG tablet Commonly known as: VITAMIN B-12 D-5000 PO diphenhydrAMINE 25 MG capsule Commonly known as: BENADRYL Take 25 mg by mouth as needed. fenofibrate 48 mg tablet Commonly known as: TRICOR Take 1 tablet by mouth Daily. furosemide 20 mg tablet Commonly known as: LASIX HYDROcodone-acetaminophen 7.5-325 mg per tablet Commonly known as: NORCO Take 1 tablet by mouth every 6 hours as needed. L-Lysine HCl 500 MG Caps Take 500 mg by mouth Daily. levothyroxine 125 mcg tablet Commonly known as: SYNTHROID, LEVOTHROID Take 1 tablet by mouth every morning (before breakfast). Melatonin Maximum Strength 5 mg tablet Generic drug: melatonin Take 5 mg by mouth Daily as needed. metoprolol succinate 50 mg 24 hr tablet Commonly known as: TOPROL-XL Taking 1/2 tab daily OCUVITE ADULT 50+ Caps omeprazole 20 mg capsule Commonly known as: priLOSEC ondansetron 4 mg disintegrating tablet Commonly known as: ZOFRAN ODT polyethylene glycol packet Commonly known as: MIRALAX SLOW-MAG 71.5-119 MG Tbec Generic drug: magnesium-calcium carbonate Take 71.5-119 mg by mouth Daily. STOP taking these medications ASPIRIN ADULT LOW STRENGTH 81 mg chewable tablet Generic drug: aspirin Where to get your medications These are the prescriptions that you need to leaf size picker. You may get these medications from any pharmacy. ferrous sulfate 325 mg tablet Activity: activity as tolerated Diet: clear liquids, advance as tolerated Wound Care: as directed Follow-up with PCP 1 week Discharge took more than 35 minutes, to include final examination, discussion of admission, and preparation of prescriptions, instructions for ongoing care, follow up and dictation of summary. Signed: Leon Cherry MD 11/17/2013 8:39 documented in this encounter Discharge Instructions Instructions Leon Cherry MD - 11/17/2013Hold Aspirin for one week and then to talk t o primary care provider before starting aspirin Follow up CBC in 3-4 days documented in this encounter Medications at Time [...] + + +---------+ + + | albuterol | 2 puff po q 4 hours | 1 | 0 | 12/30/19 | | | (VENTOLIN HFA) 90 | prn | Inhaler | | 13 | 5 | | mcg/puff | | | | | | | inhalerIndications: | | | | | | | Asthma | | | | | | + + + +---------+ + + | amLODIPine | Take 1 tablet by | 90 | 1 | 07/08/19 | | | (NORVASC) 5 mg | mouth Daily. | tablet | | 14 | 4 | | tabletIndications: | | | | | | | Hypertension | | | | | | + + + +---------+ + + | diphenhydrAMINE | Take 25 mg by mouth | | 0 | 06/04/19 | | | (BENADRYL) 25 MG | as needed. | | | 11 | 5 | | capsule | | | | | | + + + +---------+ + + | fenofibrate | Take 1 tablet by | 90 | 1 | 07/08/19 | | | (TRICOR) 48 mg | mouth Daily. | tablet | | 14 | 4 | | tabletIndications: | | | | | | | Hyperlipidemia | | | | | | + + + +---------+ + + | ferrous sulfate | Take 325 mg by mouth | | 0 | 11/18/19 | | | 325 mg tablet | Daily. | | | 14 | 5 | + + + +---------+ + + | ferrous sulfate | Take 1 tablet by | 60 | 0 | 11/18/19 | | | 325 mg tablet | mouth 2 times daily. | tablet | | 14 | 4 | + + + +---------+ + + | furosemide (LASIX) | 20 mg. 1 tab daily | | 0 | 09/04/19 | | | 20 mg tablet | PRN, edema or | | | 13 | 5 | | | hypertension | | | | | + + + +---------+ + + | | Take 1 tablet by | 30 | 0 | 11/09/19 | | | HYDROcodone-acetamin | mouth every 6 hours | tablet | | 14 | 4 | | ophen (NORCO) | as needed. | | | | | | 7.5-325 mg per | | | | | | | tabletIndications: | | | | | | | Back pain | | | | | | + + + +---------+ + + | levothyroxine | Take 1 tablet by | 90 | 1 | 07/08/19 | | | (SYNTHROID) 125 mcg | mouth every morning | tablet | | 14 | 5 | | tabletIndications: | (before breakfast). | | | | | | Hypothyroidism | | | | | | + + + +---------+ + + | metoprolol | Taking 1/2 tab daily | 45 | 1 | 09/05/19 | | | succinate (TOPROL | | tablet | | 13 | 4 | | XL) 50 mg 24 hr | | | | | | | tabletIndications: | | | | | | | Hypertension | | | | | | + + + +---------+ + + | omeprazole | Take 20 mg twice a | 1 | 0 | 11/06/19 | | | (PRILOSEC) 20 mg | day, this is over | capsule | | 14 | 4 | | capsule | the counter and does | | | | | | | not need a | | | | | | | prescription | | | | | + + + +---------+ + + | ondansetron | Take 4 mg by mouth | | 0 | | | | (ZOFRAN ODT) 4 mg | every 8 hours as | | | | 5 | | disintegrating | needed. | | | | | | tablet | | | | [...] documented as of this encounter Progress Notes Leon Cherry MD - 11/16/2013 7:50 AM PDTFormatting of this note might be different f rom the original. [facility] Service: Hospitalist Progress Note Pt: Soumya Jackson AGE/SEX: 78 y.o. female ROOM: [address] [place] [address] : 1935 PCP: Rodolfo Cruz ADMIT DATE: 11/14/2013 TODAY'S DATE: 11/16/2013 Hospital Day/Hospital Course: LOS: 2 days 78 years old female past medical history of hypothyroidism, benign hypertension, hyperlipid emia came to the hospital with weakness due to upper GI bleed(duodenal ulcers) leading to ac bishop paiute blood loss anemia. She is status post EGD confirming duodenal ulcers SUBJECTIVE: Patient seen and examine. She said she is feeling better. No more black stools. No chest pain, SOB, NGUYEN. No cough on recumbency. Had no orthopnea or PND. No Abdominal pain, N/V or f ever. Still feeling tired and fatigued. No dizziness or lightheadedness. Scheduled Medications: amLODIPine 5 mg Oral Daily aspirin 81 mg Oral Daily fenofibrate 54 mg Oral Daily levothyroxine 125 mcg Oral QAM AC metoprolol succinate 25 mg Oral Daily Continuous Infusions pantoprazole (PROTONIX) infusion 8 mg/hr (11/16/13 0651) PRN Medications albuterol, [COMPLETED] nxbedhfn-afbdtrbygq-kwnhbmqwmb, diphenhydrAMINE, HYDROcodone-acetami nophen, HYDROmorphone, LORazepam, [COMPLETED] meperidine, [COMPLETED] midazolam, ondansetron , ondansetron Allergy: Allergies Allergen Reactions Voltaren Duodenal Ulcer October 2013 Actonel Patient not remember Celecoxib Patient not remember Fosamax Patient not remember Penicillins Caused "black diarrhea" when she had her 4th child. OBJECTIVE: Vitals: Patient Vitals for the past 24 hrs: BP Temp Temp src Pulse Resp SpO2 11/16/13 0113 - - - 66 16 97 % 11/16/13 0002 117/60 mmHg 36.5 C (97.7 F) Oral 62 16 96 % 11/15/132004 117/57 mmHg 36.8 C (98.2 F) Oral 58 16 96 % 11/15/13 1545 137/67 mmHg 36.8 C (98.2 F) Oral 69 16 100 % 11/15/13 1500 118/54 mmHg - - 56 14 96 % 11/15/13 1445 122/56 mmHg - - 56 14 94 % 11/15/13 1430 112/59 mmHg - - 59 14 93 % 11/15/13 1421 124/61 mmHg - - 61 14 99 % 11/15/13 1416 139/74 mmHg - - 67 17 95 % 11/15/13 1411 147/64 mmHg - - 66 - 100 % 11/15/13 1409 155/62 mmHg - - 76 15 97 % 11/15/13 0947 - - - - - 100 % 11/15/13 0909 - - - 69 - - I&O Detailed Table: Intake/Output Summary (Last 24 hours) at 11/16/13 0750 Last data filed at 11/16/13 0634 Gross per 24 hour Intake 2092 ml Output 3250 ml Net -1158 ml Patient Vitals for the past 96 hrs: Weight 11/14/13 1109 89.812 kg (198 lb) Hemodynamics Last 24hrs: Physical Examination: Constitutional: Alert and oriented to person, place, and time. Appears well-developed and w ell-nourished. HEENT: Neck supple, no JVD, non icteric sclera. Cardiovascular: Normal rate, regular rhythm, normal heart sounds with S1 and S2, and intact distal pulses. Exam reveals no gallop and no friction rub. 3/6HSM Pulmonary/Chest: Effort normal and breath sounds normal. No stridor. No respiratory distres s. no wheezes. no rales. exhibits no tenderness. Abdominal: Soft. Bowel sounds are normal. exhibits no distension and no mass. There is no t enderness. There is no rebound and no guarding. Extremeties/Musculoskeletal: Normal range of motion.exhibits no tenderness. exhibits no ed job. Neurological: Alert and oriented to person, place, and time. Has normal reflexes. No cran ial nerve deficit. Exhibits normal muscle tone. Coordination normal. Skin: Skin is warm and dry. No rash noted. No erythema. No pallor. Psychiatric: Has a normal mood and affect. Behavior is normal. Judgment normal. LABS: Lab 11/16/13 0526 11/15/13 2324 11/15/13 0631 WBC 12.9* 14.8* 13.0* HGB 8.3* 8.0* 8.0* HCT 24.6* 24.9* 24.0* PLT 424 441* 440 NEUTOPHILPCT -- -- -- MONOPCT -- -- -- Lab 11/16/13 0526 11/15/13 0631 11/14/13 1153 NA 140 137 133* K 3.9 3.9 4.3 CL 108 104 98 CO2 23* 24 25 BUN 10 16 27* CREATININE -- -- -- CALCIUM 8.5 8.2* 8.8 LABALBU -- -- -- BILITOT -- -- -- ALKPHOS -- -- -- ALT -- -- -- AST -- -- -- GLUCOSE -- -- -- CT IMPRESSION - Nonspecific areas of mild groundglass opacification without associated lytic or overt monika l blastic stones seen in the right side of the manubrium and left humeral head, correspondin g to the areas of abnormality on the prior bone scan, with 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 No evidence of primary disease to suggest possible sourc e for metastasis. Recommend short-term follow-up contrast-enhanced MRI of the chest and left shoulder, to include STIR sequences in three months. PROBLEM LIST Principal Problem: *UGIB (upper gastrointestinal bleed) Active Problems: Acute Anemia due to blood loss, acute HTn Hypothyroid ASSESSMENT & PLAN 78 years old female past medical history of hypothyroidism, benign hypertension, hyperlipid emia came to the hospital with weakness due to upper GI bleed(duodenal ulcers) leading to ac bishop paiute blood loss anemia. She is status post EGD confirming duodenal ulcers UGIB (upper gastrointestinal bleed) leading to Acute Anemia due to blood loss, acute: Status post EGD with the duodenal ulcers. I will stop the IV Protonix now and start her o n oral protonix. I will stop the aspirin as well. Follow the H&H in the morning. Rest of the workup in the outpatient Benign HTN: Blood pressure well controlled Continue home BP meds amlodipine and metoprolol Salt restriction to less than 2 g/day Will adjust BP meds according to BP readings Hyperlipidemia: Continue lipid lowering agent fenofibrate . Low cholesterol diet. Daily exercise. Dietary education Hypothyroidism: Will continue with thyroid supplement Leon Cherry MD, FACP 11/16/2013 7:50 Peng Atkinson MD - 11/15/2013 12:08 PM PDT HOSPITALIST PROGRESS NOTE on 11/15/[address] [facility] Pt. Name/Age/: Soumya Jackson 78 y.o. 1935 Med. Record Number: [id number] Primary Care Physician: Rodolfo Cruz Date of admission: 11/14/2013 Hospital Day: 2 ASSESSMENT AND PLAN: CHIEF PROBLEMS: Active Hospital Problems Diagnosis UGIB (upper gastrointestinal bleed) Anemia due to blood loss, acute Resolved Hospital Problems Diagnosis No resolved problems to display. Code Status: Full Code OTHER and ALL PROBLEMS: Patient Active Problem List Diagnosis Hypothyroidism VAGINITIS, ATROPHIC Hyperlipidemia Hypertension DIZZINESS OSTEOPOROSIS Osteoarthritis Hepatitis A in 1967 FATIGUE GERD TIA Valvular heart disease SPONDYLOSIS, CERVICAL Asthma EXTRINSIC ASTHMA, UNSPECIFIED OSTEOARTHRITIS, CARPOMETACARPAL JOINT, RIGHT THUMB HERPES ZOSTER ABDOMINAL PAIN, RIGHT UPPER QUADRANT Lacunar infarction (HCC) PERIPHERAL NEUROPATHY Vertigo Preventative health care Multiple contusions Right ankle pain Gastroenteritis Vertigo Bronchitis DJD (degenerative joint disease) Thoracic sprain and strain Thoracic sprain and strain GI bleed Anemia due to blood loss, acute Troponin I above reference range Lytic lesion of bone on x-ray Constipation Lytic bone lesions on xray PUD (peptic ulcer disease) UGIB (upper gastrointestinal bleed) PLAN Call in for Dr. Garrison to consider repeat EGD. Disposition: Home Brief Summary Hospitalization: Patient on long-term voltaren who had UGIB in October. Dr. Pandya did an EGD and found a duode nal ulcer. She stopped voltaren and took prilosec BID when she went home, but returned to t he ER yesterday with melena. She did continue to take 81 mg ASA, but otherwise no reason fo r her to re-bleed. The issue of multiple pulmonary nodules and lytic bone lesions is very c oncerning to me, but there doesn't seem to be an easy lesion to attack for tissue. DISCUSSION: Dr. Garrison agrees to re-scope. SUBJECTIVE: The patient chart and medications were reviewed and the patient was seen and examined. Sh maegan feels fine. Actually hungry. No stool since admission. OBJECTIVE: Vitals: Temp: 36.3 C (97.3 F) BP: 133/64 mmHg Pulse: 69 Resp: 16 SpO2: 100 % RA Min/Max Temp past 24 hours: Temp Av.6 C (97.9 F) Min: 36.2 C (97.2 F) Max: 37.3 C (99.1 F) Intake/Output Summary (Last 24 hours) at 11/15/13 1208 Last data filed at 11/15/13 0800 Gross per 24 hour Intake 2080 ml Output 1400 ml Net 680 ml Wt. Admission: Weight: 89.812 kg (198 lb) Wt. Current: Weight: 89.812 kg (198 lb) Physical Examination: Constitutional: No acute distress, non-toxic appearance Eyes: conjunctiva normal. PERRL HEENT: Supple, normal ROM and without adenopathy. Oropharynx moist, no pharyngeal exudate s. Respiratory: No respiratory distress, normal breath sounds, no rales, no wheezing Cardiovascular: Normal rate, normal rhythm, no murmurs, no gallops, no rubs. GI: Soft, nondistended, normal bowel sounds, nontender, no organomegaly, no mass, no rebou nd, no guarding Diagnostic Studies: Radiology: Available data and images were reviewed personally. No results found. Selected Labs/Studies: Lab 11/15/13 0631 11/15/13 0005 11/14/13 1805 WBC 13.0* 16.5* 17.1* HGB 8.0* 9.4* 8.8* HCT 24.0* 28.9* 27.2* PLT 440 392 480* Lab 11/15/13 0631 11/14/13 1153 NA 137 133* K 3.9 4.3 CL 104 98 CO2 24 25 BUN 16 27* CREA 0.61 0.66 CALCIUM 8.2* 8.8 ALBUMIN -- -- PHOS -- -- BILITOT -- -- ALT -- -- AST -- -- ALKPHOS -- -- AMYLASE -- -- LIPASE -- -- TSH -- -- No results found for this basename: PHART:3,PO2ART:3,RLM7CDQ:3,S5HJAQCM:3,BEART:[address] 168 hours No results found for this basename: CKTOTAL:3,TROPONINI:3,TROPONINT:3,CKMBINDEX:3,BNP:3 in the last 168 hours No results found for this basename: APTT:3,INR:3,PTT:3,DDIMER:3 in the last 168 hours No results found for this basename: POCGLU Micro results last 72hrs: Microbiology Results (72 hrs) No Results found for the last 72 hours. MEDICATIONS: SCHEDULED PRN amLODIPine 5 mg Oral Daily aspirin 81 mg Oral Daily fenofibrate 54 mg Oral Daily levothyroxine 125 mcg Oral QAM AC metoprolol succinate 25 mg Oral Daily [COMPLETED] pantoprazole 80 mg Intravenous Once pantoprazole (PROTONIX) infusion 8 mg/hr (11/15/13 0756) albuterol, diphenhydrAMINE, HYDROcodone-acetaminophen, HYDROmorphone, LORazepam, ondansetr on, ondansetron DVT Prophylaxis Contraindicated CMS Documentation I expect this patient will be hospitalized for greater than 2-midnights and expect the post -hospital plan to be discharge to home or to an adult foster home. Electronically signed by: Peng Godinez MD, 11/15/2013 12:08 [facility] Portions of this chart may have been created withRdio voice recognition software. Occas ional wrong-word or sound-alike substitutions may have occurred due to the inherent li mitations of voice recognition software. Please read the chart carefully and recognize, in g context, where these substitutions have occurred. documented in this encounter Plan of Treatment +--------+---------+ + + + | Date | Type | Specialty | Care Team | Description | +--------+---------+ + + + | 06/02/ | Office | Orthopedic Surgery | Ulysses Jensen, | | | 2019 | Visit | | MD Danny FLANNERY | | | | | | [place] | | | | | | [id number] | | | | | | | | +--------+---------+ + + + | 11/21/ | Office | Cardiology | Yesi, | | | 2019 | Visit | | JOSE ALBERTO Linder [address] | | | | | | [address] [place], | | | | | | [place] [address] | | | | | | [phone] | | | | | | | | +--------+---------+ + + + + + +--------+ + + | Name | Type | Priori | Associated Diagnoses | Order Schedule | | | | ty | | | + + +--------+ + + | Red Blood Cells | Blood Bank | Routin | | One Time for 1 | | (PRBC) - Crossmatch | | e | | Occurrences starting | | and Hold | | | | 11/14/2013 until | | | | | | 11/14/2013 | + + +--------+ + + documented as of this encounter Procedures + +--------+ + + + | Procedure Name | Priori | Date/Time | Associated Diagnosis | Comments | | | ty | | | | + +--------+ + + + | PRODUCT: RBC | Routin | 11/19/2013 | | Results for this | | | e | 10:39 AM | | procedure are in the | | | | PDT | | results section. | + +--------+ + + + | PRODUCT: RBC | Routin | 11/19/2013 | | Results for this | | | e | 10:39 AM | | procedure are in the | | | | PDT | | results section. | + +--------+ + + + | CBC WITH | Routin | 11/17/2013 | | Results for this | | DIFFERENTIAL | e | 6:03 AM | | procedure are in the | | | | PDT | | results section. | + +--------+ + + + | BASIC METABOLIC | Routin | 11/17/2013 | | Results for this | | PANEL | e | 6:03 AM | | procedure are in the | | | | PDT | | results section. | + +--------+ + + + | CBC NO DIFFERENTIAL | Routin | 11/16/2013 | | Results for this | | | e | 11:48 PM | | procedure are in the | | | | PDT | | results section. | + +--------+ + + + | CBC NO DIFFERENTIAL | Routin | 11/16/2013 | | Results for this | | | e | 6:11 PM | | procedure are in the | | | | PDT | | results section. | + +--------+ + + + | CBC NO DIFFERENTIAL | Routin | 11/16/2013 | | Results for this | | | e | 11:34 AM | | procedure are in the | | | | PDT | | results section. | + +--------+ + + + | CBC NO DIFFERENTIAL | Routin | 11/16/2013 | | Results for this | | | e | 5:26 AM | | procedure are in the | | | | PDT | | results section. | + +--------+ + + + | BASIC METABOLIC | Routin | 11/16/2013 | | Results for this | | PANEL | e | 5:26 AM | | procedure are in the | | | | PDT | | results section. | + +--------+ + + + | CBC NO DIFFERENTIAL | Routin | 11/15/2013 | | Results for this | | | e | 11:24 PM | | procedure are in the | | | | PDT | | results section. | + +--------+ + + + | HELICOBACTER PYLORI | Routin | 11/15/2013 | | Results for this | | BIOPSY | e | 3:22 PM | | procedure are in the | | | | PDT | | results section. | + +--------+ + + + | EGD | Routin | 11/15/2013 | | Results for this | | | e | 2:09 PM | | procedure are in the | | | | PDT | | results section. | + +--------+ + + + | EGD | | 11/15/2013 | GI bleed | | | | | 2:04 PM | | | | | | PDT | | | + +--------+ + + + | CBC NO DIFFERENTIAL | Routin | 11/15/2013 | | Results for this | | | e | 6:31 AM | | procedure are in the | | | | PDT | | results section. | + +--------+ + + + | BASIC METABOLIC | Routin | 11/15/2013 | | Results for this | | PANEL | e | 6:31 AM | | procedure are in the | | | | PDT | | results section. | + +--------+ + + + | CBC NO DIFFERENTIAL | Routin | 11/15/2013 | | Results for this | | | e | 12:05 AM | | procedure are in the | | | | PDT | | results section. | + +--------+ + + + | CBC NO DIFFERENTIAL | Routin | 11/14/2013 | | Results for this | | | e | 6:05 PM | | procedure are in the | | | | PDT | | results section. | + +--------+ + + + | TYPE AND SCREEN | STAT | 11/14/2013 | | Results for this | | | | 12:24 PM | | procedure are in the | | | | PDT | | results section. | + +--------+ + + + | CBC WITH | STAT | 11/14/2013 | | Results for this | | DIFFERENTIAL | | 11:53 AM | | procedure are in the | | | | PDT | | results section. | + +--------+ + + + | BASIC METABOLIC | STAT | 11/14/2013 | | Results for this | | PANEL | | 11:53 AM | | procedure are in the | | | | PDT | | results section. | + +--------+ + + + | ED INFORMATION | Routin | 11/14/2013 | | Results for this | | EXCHANGE | e | 10:23 AM | | procedure are in the | | | | PDT | | results section. | + +--------+ + + + documented in this encounter Results PRODUCT: RBC (11/19/2013 10:39 AM PDT) + + + + + + | Component | Value | Ref Range | Performed | Pathologist | | | | | At | Signature | + + + + + + | Product | RBC Leukocytes Reduced | | [facility] | | | Code | | [facility] | | [facility] | | | | [facility] - | | | | | | [facility]OD B[facility] | | + + + + + + | UNIT # | [id number] | | [facility] | | | | [facility] | | [facility] | | | | [facility] - | | | | | | [facility]OD [facility] | | + + + + + + | UNIT ABO | O | | [facility] | | | | [facility] | | [facility] | | | | | | [facility] - | | | | | | [facility]LOOD BANK | | + + + + + + | UNIT RH | POS | | [facility] | | | | [facility] | | [facility] | | | | | | [facility] - | | | | | | BLOOD BANK | | + + + + + + | CROSSMATCH | Compatible | | [facility] | | | INTERP | | | [facility] | | | | | [facility] | | | | | | [facility] - | | | | | | BLOOD BANK | | + + + + + + | Unit Status | Returned | | [facility] | | | | | | [facility] | | | | | [facility] | | | | | | [facility] - | | | | | | BLOOD BANK | | + + + + + + + + | Specimen | + + | | + + + + + + + | Performing | Address | City/State/Zipcode | Phone Number | | Organization | | | | + + + + + | [facility] | [address] | [place] | | | [facility] | | [address] | | | - BLOOD BANK | | | | + + + + + PRODUCT: RBC (11/19/2013 10:39 AM PDT) + + + + + + | Component | Value | Ref Range | Performed | Pathologist | | | | | At | Signature | + + + + + + | Product | RBC Leukocytes Reduced | | [facility] | | | Code | | | [facility] | | | | | [facility] | | | | | | [facility] - | | | | | | BLOOD BANK | | + + + + + + | UNIT # | [id number] | | [facility] | | | | [facility] | | | [facility] | [facility] | | | | | | [facility] - | | | | | | BLOOD BANK | | + + + + + + | UNIT ABO | O | | [facility] | | | | | | [facility] | | | | | | [facility] | | | | | | [facility] - | | | | | | BLOOD BANK | | + + + + + + | UNIT RH | POS | | [facility] | | | | | | [facility] | | | | | | [facility] | | | | | | [facility] - | | | | | | BLOOD BANK | | + + + + + + | CROSSMATCH | Compatible | | [facility] | | | INTERP | | | [facility] | | | | | | [facility] | | | | | | [facility] - | | | | | | BLOOD BANK | | + + + + + + | Unit Status | Returned | | [facility] | | | | | | [facility] | | | | | | [facility] | | | | | | [facility] - | | | | | | BLOOD BANK | | + + + + + + + + | Specimen | + + | | + + + + + + + | Performing | Address | City/State/Zipcode | Phone Number | | Organization | | | | + + + + + | [facility] | [address] | [place] | | | [facility] | | [address] | | | - BLOOD BANK | | | | + + + + + CBC with Differential (11/17/2013 6:03 AM PDT) + + + + + + | Component | Value | Ref Range | Performed | Pathologist | | | | | At | Signature | + + + + + + | WBC | 11.2 (H) | 4.0 - 11.0 K/uL | [facility] | | | | | [facility] | | | | | | [facility] | | | | | [facility] - | | | | | | LABORATORY | | + + + + + + | RBC | 2.59 (L) | 3.70 - 5.20 | [facility] | | | | | M/uL | [facility] | | | | | | [facility] | | | | | | C[facility] - | | | | | | LABORATORY | | + + + + + + | Hemoglobin | 8.3 (L) | 11.5 - 16.0 | [facility] | | | | | g/dL | [facility] | | | | | | [facility] | | | | | | C[facility] - | | | | | | LABORATORY | | + + + + + + | Hematocrit | 24.8 (L) | 34.0 - 47.0 % | [facility] | | | | | | [facility] | | | | | | [facility] | | | | | | [facility] - | | | | | | LABORATORY | | + + + + + + | MCV | 95.9 | 83.0 - 101.0 fL | [facility] | | | | | | [facility] | | | | | | [facility] | | | | | | [facility] - | | | | | | LABORATORY | | + + + + + + | MCH | 32.0 | 28.0 - 35.0 pg | [facility] | | | | | | [facility] | | | | | | [facility] | | | | | | [facility] - | | | | | | LABORATORY | | + + + + + + | MCHC | 33.4 | 32.0 - 36.0 | [facility] | | | | | g/dL | [facility] | | | | | | [facility] | | [facility] | | | CENTER - | | | | | | LABORATORY | | + + + + + + | RDW-CV | 16.5 (H) | <15.0 % | [facility] | | | | | | [facility] | | | | | | [facility] | | | | | | C[facility] - | | | | | | LABORATORY | | + + + + + + | Platelet | 414 | 140 - 440 K/uL | [facility] | | | Count | | | [facility] | | | | | | [facility] | | | | | | C[facility] - | | | | | | LABORATORY | | + + + + + + | MPV | 9.3 | fL | [facility] | | | | | | [facility] | | | | | | [facility] | | | | | | [facility] - | | | | | | LABORATORY | | + + + + + + | % | 65.8 | 45.0 - 82.0 % | [facility] | | | Neutrophils | | | [facility] | | | | | | [facility] | | | | | | CENTER - | | | | | | LABORATORY | | + + + + + + | % | 23.3 | 20.0 - 45.0 % | [facility] | | | Lymphocytes | | | [facility] | | | | | | [facility] | | | | | | CENTER - | | | | | | LABORATORY | | + + + + + + | % Monocytes | 6.8 | 4.0 - 12.0 % | [facility] | | | | | | [facility] | | | | | | [facility] | | | | | | C[facility] - | | | | | | LABORATORY | | + + + + + + | % | 3.2 | 0.0 - 5.0 % | [facility] | | | Eosinophils | | | [facility] | | | | | | [facility] | | | | | | CENTER - | | | | | | LABORATORY | | + + + + + + | % Basophils | 0.9 | 0.0 - 1.0 % | [facility] | | | | | | [facility] | | | | | | [facility] | | | | | | CENTER - | | | | | | LABORATORY | | + + + + + + | Absolute | 7.40 | 1.80 - 8.50 | [facility] | | | Neutrophils | | K/uL | [facility] | | | | | | MEDICAL | | | | | | CENTER - | | | | | | LABORATORY | | + + + + + + | Absolute | 2.60 | 0.60 - 3.20 | [facility] | | | Lymphocytes | | K/uL | [facility] | | | | | | MEDICAL | | | | | | CENTER - | | | | | | LABORATORY | | + + + + + + | Absolute | 0.80 | 0.00 - 1.00 | [facility] | | | Monocytes | | K/uL | [facility] | | | | | | MEDICAL | | | | | | CENTER - | | | | | | LABORATORY | | + + + + + + | Absolute | 0.40 | 0.00 - 0.40 | [facility] | | | Eosinophils | | K/uL | [facility] | | | | | | MEDICAL | | | | | | CENTER - | | | | | | LABORATORY | | + + + + + + | Absolute | 0.10 | 0.00 - 0.10 | [facility] | | | Basophils | | K/uL | [facility] | | | | | | MEDICAL | | | | | | CENTER - | | | | | | LABORATORY | | + + + + + + + + | Specimen | + + | Blood | + + + + + + + | Performing | Address | City/State/Zipcode | Phone Number | | Organization | | | | + + + + + | [facility] | [address] | [place] | [phone] | | [facility] | | [address] | | | - LABORATORY | | | | + + + + + | [facility] | [address] | [place], [place] | | | [facility] | | [address] | | | - LABORATORY | | | | + + + + + Basic Metabolic Panel (11/17/2013 6:03 AM PDT) + + + + + + | Component | Value | Ref Range | Performed | Pathologist | | | | | At | Signature | + + + + + + | Na | 139 | 136 - 149 | [facility] | | | | | mmol/L | [facility] | | | | | | MEDICAL | | | | | | CENTER - | | | | | | LABORATORY | | + + + + + + | K | 3.8 | 3.5 - 5.1 | [facility] | | | | | mmol/L | [facility] | | | | | | MEDICAL | | | | | | CENTER - | | | | | | LABORATORY | | + + + + + + | Cl | 107 | 98 - 109 mmol/L | [facility] | | | | | | [facility] | | | | | | MEDICAL | | | | | | CENTER - | | | | | | LABORATORY | | + + + + + + | CO2 | 24 | 24 - 31 mmol/L | [facility] | | | | | | [facility] | | | | | | MEDICAL | | | | | | CENTER - | | | | | | LABORATORY | | + + + + + + | Anion Gap | 8 | 3 - 16 mmol/L | [facility] | | | | | | [facility] | | | | | | MEDICAL | | | | | | CENTER - | | | | | | LABORATORY | | + + + + + + | Glucose | 95 | 70 - 109 mg/dL | [facility] | | | | | | [facility] | | | | | | MEDICAL | | | | | | CENTER - | | | | | | LABORATORY | | + + + + + + | BUN | 7 | 7 - 18 mg/dL | [facility] | | | | | | [facility] | | | | | | MEDICAL | | | | | | CENTER - | | | | | | LABORATORY | | + + + + + + | Creatinine | 0.74 | 0.60 - 1.30 | [facility] | | | | | mg/dL | [facility] | | | | | | MEDICAL | | | | | | CENTER - | | | | | | LABORATORY | | + + + + + + | eGFR if not | >60Comment: GLOMERULAR | >=60 | [facility] | | | | FILTRATION | mL/min/1.73m2 | [facility] | | | [facility]IAN | RATE,ESTIMATED | | MEDICAL | | | | mL/min/1.99l3Knzd than | | CENTER - | | | | 60 Chronic kidney | | LABORATORY | | | | disease,if found over a | | | | | | 3-month period.Less than | | | | | | 15 Kidney failureFor | | | | | | | | | | | | Americans,multiply the | | | | | | calculated GFR by 1.21. | | | | | | | | | | + + + + + + | Calcium | 9.0 | 8.3 - 10.5 | [facility] | | | | | mg/dL | [facility] | | | | | | MEDICAL | | | | | | CENTER - | | | | | | LABORATORY | | + + + + + + | BUN/Creatin | 9.5 | | [facility] | | | ine Ratio | | | [facility] | | | | | | MEDICAL | | | | | | CENTER - | | | | | | LABORATORY | | + + + + + + + + | Specimen | + + | Blood | + + + + + + + | Performing | Address | City/State/Zipcode | Phone Number | | Organization | | | | + + + + + | [facility] | [address] | [place] | [phone] | | [facility] | | [address] | | | - LABORATORY | | | | + + + + + | [facility] | [address] | [place] | | | [facility] | | [address] | | | - LABORATORY | | | | + + + + + CBC no Differential (11/16/2013 11:48 PM PDT) + + + + + + | Component | Value | Ref Range | Performed | Pathologist | | | | | At | Signature | + + + + + + | WBC | 13.1 (H) | 4.0 - 11.0 K/uL | [facility] | | | | | | [facility] | | | | | | MEDICAL | | | | | | CENTER - | | | | | | LABORATORY | | + + + + + + | RBC | 2.50 (L) | 3.70 - 5.20 | [facility] | | | | | M/uL | [facility] | | | | | | [facility] | | | | | | CENTER - | | | | | | LABORATORY | | + + + + + + | Hemoglobin | 7.8 (L) | 11.5 - 16.0 | [facility] | | | | | g/dL | [facility] | | | | | | [facility] | | | | | | CENTER - | | | | | | LABORATORY | | + + + + + + | Hematocrit | 23.7 (L) | 34.0 - 47.0 % | [facility] | | | | | | [facility] | | | | | | [facility] | | | | | | CENTER - | | | | | | LABORATORY | | + + + + + + | MCV | 94.7 | 83.0 - 101.0 fL | [facility] | | | | | | [facility] | | | | | | [facility] | | | | | | C[facility] - | | | | | | LABORATORY | | + + + + + + | MCH | 31.0 | 28.0 - 35.0 pg | [facility] | | | | | | [facility] | | | | | | MEDICAL | | | | | | CENTER - | | | | | | LABORATORY | | + + + + + + | MCHC | 32.8 | 32.0 - 36.0 | [facility] | | | | | g/dL | [facility] | | | | | | MEDICAL | | | | | | CENTER - | | | | | | LABORATORY | | + + + + + + | RDW-CV | 16.4 (H) | <15.0 % | [facility] | | | | | | [facility] | | | | | | MEDICAL | | | | | | CENTER - | | | | | | LABORATORY | | + + + + + + | Platelet | 414 | 140 - 440 K/uL | [facility] | | | Count | | | [facility] | | | | | | MEDICAL | | | | | | CENTER - | | | | | | LABORATORY | | + + + + + + | MPV | 8.8 | fL | [facility] | | | | | | [facility] | | | | | | MEDICAL | | | | | | CENTER - | | | | | | LABORATORY | | + + + + + + + + | Specimen | + + | Blood | + + + + + + + | Performing | Address | City/State/Zipcode | Phone Number | | Organization | | | | + + + + + | [facility] | [address] | [place], [place] | [phone] | | [facility] | | [address] | | | - LABORATORY | | | | + + + + + | [facility] | [address] | [place], [place] | | | [facility] | | [address] | | | - LABORATORY | | | | + + + + + CBC no Differential (11/16/2013 6:11 PM PDT) + + + + + + | Component | Value | Ref Range | Performed | Pathologist | | | | | At | Signature | + + + + + + | WBC | 14.7 (H) | 4.0 - 11.0 K/uL | [facility] | | | | | | [facility] | | | | | | MEDICAL | | | | | | CENTER - | | | | | | LABORATORY | | + + + + + + | RBC | 2.76 (L) | 3.70 - 5.20 | [facility] | | | | | M/uL | [facility] | | | | | | MEDICAL | | | | | | CENTER - | | | | | | LABORATORY | | + + + + + + | Hemoglobin | 8.5 (L) | 11.5 - 16.0 | [facility] | | | | | g/dL | [facility] | | | | | | MEDICAL | | | | | | CENTER - | | | | | | LABORATORY | | + + + + + + | Hematocrit | 26.2 (L) | 34.0 - 47.0 % | [facility] | | | | | | [facility] | | | | | | MEDICAL | | | | | | CENTER - | | | | | | LABORATORY | | + + + + + + | MCV | 94.8 | 83.0 - 101.0 fL | [facility] | | | | | | [facility] | | | | | | MEDICAL | | | | | | CENTER - | | | | | | LABORATORY | | + + + + + + | MCH | 30.7 | 28.0 - 35.0 pg | [facility] | | | | | | [facility] | | | | | | MEDICAL | | | | | | CENTER - | | | | | | LABORATORY | | + + + + + + | MCHC | 32.3 | 32.0 - 36.0 | [facility] | | | | | g/dL | [facility] | | | | | | MEDICAL | | | | | | CENTER - | | | | | | LABORATORY | | + + + + + + | RDW-CV | 16.3 (H) | <15.0 % | [facility] | | | | | | [facility] | | | | | | MEDICAL | | | | | | CENTER - | | | | | | LABORATORY | | + + + + + + | Platelet | 462 (H) | 140 - 440 K/uL | [facility] | | | Count | | | [facility] | | | | | | MEDICAL | | | | | | CENTER - | | | | | | LABORATORY | | + + + + + + | MPV | 8.7 | fL | [facility] | | | | | | [facility] | | | | | | MEDICAL | | | | | | CENTER - | | | | | | LABORATORY | | + + + + + + + + | Specimen | + + | Blood | + + + + + + + | Performing | Address | City/State/Zipcode | Phone Number | | Organization | | | | + + + + + | [facility] | [address] | [place] | [phone] | | [facility] | | [address] | | | - LABORATORY | | | | + + + + + | [facility] | [address] | [place] | | | [facility] | | [address] | | | - LABORATORY | | | | + + + + + CBC no Differential (11/16/2013 11:34 AM PDT) + + + + + + | Component | Value | Ref Range | Performed | Pathologist | | | | | At | Signature | + + + + + + | WBC | 12.6 (H) | 4.0 - 11.0 K/uL | [facility] | | | | | | [facility] | | | | | | [facility] | | | | | | C[facility] - | | | | | | LABORATORY | | + + + + + + | RBC | 2.65 (L) | 3.70 - 5.20 | [facility] | | | | | M/uL | [facility] | | | | | | MEDICAL | | | | | | CENTER - | | | | | | LABORATORY | | + + + + + + | Hemoglobin | 8.5 (L) | 11.5 - 16.0 | [facility] | | | | | g/dL | [facility] | | | | | | MEDICAL | | | | | | CENTER - | | | | | | LABORATORY | | + + + + + + | Hematocrit | 25.3 (L) | 34.0 - 47.0 % | [facility] | | | | | | [facility] | | | | | | MEDICAL | | | | | | CENTER - | | | | | | LABORATORY | | + + + + + + | MCV | 95.2 | 83.0 - 101.0 fL | [facility] | | | | | | [facility] | | | | | | MEDICAL | | | | | | CENTER - | | | | | | LABORATORY | | + + + + + + | MCH | 32.0 | 28.0 - 35.0 pg | [facility] | | | | | | [facility] | | | | | | MEDICAL | | | | | | CENTER - | | | | | | LABORATORY | | + + + + + + | MCHC | 33.6 | 32.0 - 36.0 | [facility] | | | | | g/dL | [facility] | | | | | | MEDICAL | | | | | | CENTER - | | | | | | LABORATORY | | + + + + + + | RDW-CV | 16.4 (H) | <15.0 % | [facility] | | | | | | [facility] | | | | | | MEDICAL | | | | | | CENTER - | | | | | | LABORATORY | | + + + + + + | Platelet | 437 | 140 - 440 K/uL | [facility] | | | Count | | | [facility] | | | | | | MEDICAL | | | | | | CENTER - | | | | | | LABORATORY | | + + + + + + | MPV | 9.1 | fL | [facility] | | | | | | [facility] | | | | | | [facility]ICAL | | | | | | CENTER - | | | | | | LABORATORY | | + + + + + + + + | Specimen | + + | Blood | + + + + + + + | Performing | Address | City/State/Zipcode | Phone Number | | Organization | | | | + + + + + | [facility] | [address] | [place] | [phone] | | [facility] | | [address] | | | - LABORATORY | | | | + + + + + | [facility] | [address] | [place] | | | [facility] | | [address] | | | - LABORATORY | | | | + + + + + CBC no Differential (11/16/2013 5:26 AM PDT) + + + + + + | Component | Value | Ref Range | Performed | Pathologist | | | | | At | Signature | + + + + + + | WBC | 12.9 (H) | 4.0 - 11.0 K/uL | [facility] | | | | | | [facility] | | | | | | MEDICAL | | | | | | CENTER - | | | | | | LABORATORY | | + + + + + + | RBC | 2.59 (L) | 3.70 - 5.20 | [facility] | | | | | M/uL | [facility] | | | | | | MEDICAL | | | | | | CENTER - | | | | | | LABORATORY | | + + + + + + | Hemoglobin | 8.3 (L) | 11.5 - 16.0 | [facility] | | | | | g/dL | [facility] | | | | | | [facility] | | | | | | CENTER - | | | | | | LABORATORY | | + + + + + + | Hematocrit | 24.6 (L) | 34.0 - 47.0 % | [facility] | | | | | | [facility] | | | | | | MEDICAL | | | | | | CENTER - | | | | | | LABORATORY | | + + + + + + | MCV | 95.0 | 83.0 - 101.0 fL | [facility] | | | | | | [facility] | | | | | | MEDICAL | | | | | | CENTER - | | | | | | LABORATORY | | + + + + + + | MCH | 32.1 | 28.0 - 35.0 pg | [facility] | | | | | | [facility] | | | | | | MEDICAL | | | | | | CENTER - | | | | | | LABORATORY | | + + + + + + | MCHC | 33.8 | 32.0 - 36.0 | [facility] | | | | | g/dL | [facility] | | | | | | MEDICAL | | | | | | CENTER - | | | | | | LABORATORY | | + + + + + + | RDW-CV | 16.2 (H) | <15.0 % | [facility] | | | | | | [facility] | | | | | | MEDICAL | | | | | | CENTER - | | | | | | LABORATORY | | + + + + + + | Platelet | 424 | 140 - 440 K/uL | [facility] | | | Count | | | [facility] | | | | | | MEDICAL | | | | | | CENTER - | | | | | | LABORATORY | | + + + + + + | MPV | 9.4 | fL | [facility] | | | | | | [facility] | | | | | | [facility] | | | | | | [facility] - | | | | | | LABORATORY | | + + + + + + + + | Specimen | + + | Blood | + + + + + + + | Performing | Address | City/State/Zipcode | Phone Number | | Organization | | | | + + + + + | [facility] | [address] | [place] | [phone] | | [facility] | | [address] | | | - LABORATORY | | | | + + + + + | [facility] | [address] | [place] | | | [facility] | | [address] | | | - LABORATORY | | | | + + + + + Basic Metabolic Panel (11/16/2013 5:26 AM PDT) + + + + + + | Component | Value | Ref Range | Performed | Pathologist | | | | | At | Signature | + + + + + + | Na | 140 | 136 - 149 | [facility] | | | | | mmol/L | [facility] | | | | | | [facility]ICAL | | | | | | [facility] - | | | | | | LABORATORY | | + + + + + + | K | 3.9 | 3.5 - 5.1 | [facility] | | | | | mmol/L | [facility] | | | | | | [facility] | | | | | | CENTER - | | | | | | LABORATORY | | + + + + + + | Cl | 108 | 98 - 109 mmol/L | [facility] | | | | | [facility] | | | | | | [facility] | | | | | | CENTER - | | | | | | LABORATORY | | + + + + + + | CO2 | 23 (L) | 24 - 31 mmol/L | [facility] | | | | | [facility] | | | | | | [facility] | | | | | | C[facility] - | | | | | | LABORATORY | | + + + + + + | Anion Gap | 9 | 3 - 16 mmol/L | [facility] | | | | | [facility] | | | | | | [facility] | | | | | | [facility] - | | | | | | LABORATORY | | + + + + + + | Glucose | 94 | 70 - 109 mg/dL | [facility] | | | | | [facility] | | | | | | [facility] | | | | | | CENTER - | | | | | | LABORATORY | | + + + + + + | BUN | 10 | 7 - 18 mg/dL | [facility] | [facility] | [facility] | [facility] | | | | | | [facility] - | | | | | | LABORATORY | | + + + + + + | Creatinine | 0.60 | 0.60 - 1.30 | [facility] | | | | | mg/dL | [facility] | | | | | | MEDICAL | | | | | | CENTER - | | | | | | LABORATORY | | + + + + + + | eGFR if not | >60Comment: GLOMERULAR | >=60 | [facility] | | | | FILTRATION | mL/min/1.73m2 | [facility] | | | [facility] | RATE,ESTIMATED | | MEDICAL | | | | mL/min/1.39m6Xrer than | | CENTER - | | | | 60 Chronic kidney | | LABORATORY | | | | disease,if found over a | | | | | | 3-month period.Less than | | | | | | 15 Kidney failureFor | | | | | | | | | | | | Americans,multiply the | | | | | | calculated GFR by 1.21. | | | | | | | | | | + + + + + + | Calcium | 8.5 | 8.3 - 10.5 | [facility] | | | | | mg/dL | [facility] | | | | | | MEDICAL | | | | | | CENTER - | | | | | | LABORATORY | | + + + + + + | BUN/Creatin | 16.7 | | [facility] | | | ine Ratio | | | [facility] | | | | | | [facility]ICAL | | | | | | CENTER - | | | | | | LABORATORY | | + + + + + + + + | Specimen | + + | Blood | + + + + + + + | Performing | Address | City/State/Zipcode | Phone Number | | Organization | | | | + + + + + | [facility] | [address] | [place] | [phone] | | [facility] | | [address] | | | - LABORATORY | | | | + + + + + | [facility] | [address] | [place] | | | [facility] | | [address] | | | - LABORATORY | | | | + + + + + CBC no Differential (11/15/2013 11:24 PM PDT) + + + + + + | Component | Value | Ref Range | Performed | Pathologist | | | | | At | Signature | + + + + + + | WBC | 14.8 (H) | 4.0 - 11.0 K/uL | [facility] | | | | | [facility] | | | | | | MEDICAL | | | | | | CENTER - | | | | | | LABORATORY | | + + + + + + | RBC | 2.64 (L) | 3.70 - 5.20 | [facility] | | | | | M/uL | [facility] | | | | | | MEDICAL | | | | | | CENTER - | | | | | | LABORATORY | | + + + + + + | Hemoglobin | 8.0 (L) | 11.5 - 16.0 | [facility] | | | | | g/dL | [facility] | | | | | | MEDICAL | | | | | | CENTER - | | | | | | LABORATORY | | + + + + + + | Hematocrit | 24.9 (L) | 34.0 - 47.0 % | [facility] | | | | [facility] | | | | | [facility] | | | | | | [facility] - | | | | | | LABORATORY | | + + + + + + | MCV | 94.6 | 83.0 - 101.0 fL | [facility] | | | | | [facility] | | | | | | [facility] | | | | | | [facility] - | | | | | | LABORATORY | | + + + + + + | MCH | 30.3 | 28.0 - 35.0 pg | [facility] | | | | | | [facility] | | | | | | [facility] | | | | | | C[facility] - | | | | | | LABORATORY | | + + + + + + | MCHC | 32.0 | 32.0 - 36.0 | [facility] | | | | | g/dL | [facility] | | | | | | [facility] | | | | | | C[facility] - | | | | | | LABORATORY | | + + + + + + | RDW-CV | 16.0 (H) | <15.0 % | [facility] | | | | | [facility] | | | | | | [facility]ICAL | | | | | | CENTER - | | | | | | LABORATORY | | + + + + + + | Platelet | 441 (H) | 140 - 440 K/uL | [facility] | | | Count | | | [facility] | | | | | | MEDICAL | | | | | | CENTER - | | | | | | LABORATORY | | + + + + + + | [facility]PV | 8.6 | fL | [facility] | | | | [facility] | | | [facility] | [facility] | | | | [facility] - | | | | | | LABORATORY | | + + + + + + + + | Specimen | + + | Blood | + + + + + + + | Performing | Address | City/State/Zipcode | Phone Number | | Organization | | | | + + + + + | [facility] | [address] | [place], [place] | [phone] | | [facility] | | [address] | | | - LABORATORY | | | | + + + + + | [facility] | [address] | [place], [place] | | | [facility] | | [address] | | | - LABORATORY | | | | + + + + + Helicobactor pylori Biopsy (11/15/2013 3:22 PM PDT) + + + + + + | Component | Value | Ref Range | Performed | Pathologist | | | | | At | Signature | + + + + + + | Helicobacte | Negative | Negative | [facility] | | | r pylori Ag | | | [facility] | | | | | | [facility]ICAL | | | | | | CENTER - | | | | | | LABORATORY | | + + + + + + + + | Specimen | + + | Tissue - Entire | | pyloric antrum (body | | structure) | + + + + + + + | Performing | Address | City/State/Zipcode | Phone Number | | Organization | | | | + + + + + | [facility] | [address] | [place] | [phone] | | [facility] | | [address] | | | - LABORATORY | | | | + + + + + | [facility] | [address] | [place] | | | [facility] | | [address] | | | - LABORATORY | | | | + + + + + EGD (11/15/2013 2:09 PM PDT) + + | Specimen | + + | | + + + + --+ | Narrative | Performed A t | + + --+ | | [facility] | | GastroenterologyPatient Name: Soumya Sydney Date: 11/15/2013 2:09 | [facility] | | PMMRN: [id number] #: [id number] of : 8Admit | | | Type: InpatientAge: 78Room: [facility] 01Gender: FemaleNote Status: | | | FinalizedAttending MD: HAILEY Aranarocedure: Upper | | | GI endoscopyIndications: Acute post hemorrhagic anemia, | | | MelenaProviders: Lauri Garrison MD, Judy Green, CB, | | | Rachael Cabello RN, Macy Diaz | | | Mima, TechnicianReferring MD: Rodolfo Cruz MD | | | (Referring MD)Medicines: Midazolam 2 mg IV, Meperidine 50 | | | mg IV, Cetacaine spray, Oxygen 4 | | | liters/min nasocannulaComplications: No immediate complications. | | | Estimated blood loss: Minimal.Procedure: Pre-Anesthesia | | | Assessment: - Prior to the procedure, a History and Physical was | | | performed, and patient medications, allergies and | | | sensitivities were reviewed. The patient's tolerance of | | | previous anesthesia was reviewed. - Prior to the procedure, a | | | History and Physical was performed, and patient medications and | | | allergies were reviewed. The patient is competent. The risks | | | and benefits of the procedure and the sedation options and | | | risks were discussed with the patient. All questions were | | | answered and informed consent was obtained. Patient identification and | | | proposed procedure were verified by the physician, the nurse | | | and the solid waste landfill technician in the 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 Mental Status | | | Examination: normal. Airway Examination: normal oropharyngeal | | | airway and neck mobility and Mallampati Class III (part of the | | | uvula and soft palate visualized). Prophylactic Antibiotics: | | | The patient does not require prophylactic antibiotics. Prior | | | Anticoagulants: The patient has taken aspirin, last dose was 2 | | | days prior to procedure. ASA Grade Assessment: III - A patient | | | with severe systemic disease. After reviewing the risks and | | | benefits, the patient was deemed in satisfactory condition to undergo | | | the procedure. The anesthesia plan was to use moderate sedation | | | / analgesia (conscious sedation). Immediately prior to | | | administration of medications, the patient was re-assessed for | | | adequacy to receive sedatives. The heart rate, respiratory | | | rate, oxygen saturations, blood pressure, adequacy of pulmonary | | | ventilation, and response to care were monitored throughout | | | the procedure. The physical status of the patient was | | | re-assessed after the procedure. - After reviewing the risks and | | | benefits, the patient was deemed in satisfactory condition to | | | undergo the procedure. - Immediately prior to administration of | | | medications, the patient was re-assessed for adequacy to | | | receive sedatives. - The heart rate, respiratory rate, oxygen | | | saturations, blood pressure, adequacy of pulmonary ventilation, | | | and response to care were monitored throughout the procedure. | | | - The physical status of the patient was re-assessed after the | | | procedure. After obtaining informed consent, the endoscope was | | | passed under direct vision. Throughout the procedure, the | | | patient's blood pressure, pulse, and oxygen saturations were | | | monitored continuously. The endoscope was introduced through | | | the mouth, and advanced to the third part of duodenum. The | | | upper GI endoscopy was accomplished without difficulty. The | | | patient tolerated the procedure well.Findings: The | | | cricopharyngeus, middle third of the esophagus, lower third of the | | | esophagus and gastroesophageal junction were normal. The | | | Z-line was irregular and was found 36 cm from the incisors. A 3 | | | cm hiatus hernia was present. The entire examined stomach was | | | normal. Biopsies were taken with a cold forceps for | | | Helicobacter pylori testing using CLOtest. Verification of | | | patient identification for the specimen was done. Estimated blood loss | | | was minimal. The duodenal bulb, 2nd part of the | | | duodenum, area of the papilla and 3rd part of the duodenum were | | | normal. One non-bleeding cratered duodenal ulcer with no | | | stigmata of bleeding was found in the second part of the | | | duodenum. The lesion was 8 mm in largest dimension. The | | | retroflexed view confirmed previous findings,Impression: - | | | Normal cricopharyngeus, middle third of esophagus, lower third of | | | esophagus and gastroesophageal junction. - Z-line irregular, | | | 36 cm from the incisors. - Hiatus hernia. - Normal | | | stomach. Biopsied. - Normal duodenal bulb, 2nd part of the | | | duodenum, area of the papilla and 3rd part of the duodenum. | | | - One duodenal ulcer with clean base. - The retroflexed view | | | confirmed previous findings,Recommendation: - Return patient to | | | [facility] for [facility]. - Clear liquid diet today. | | | - Continue present medications. - Observe patient's clinical | | | course. - Repeat the upper endoscopy PRN for retreatment.Lauri | | | Shanika Garrison MD11/15/2013 2:31 PMThis report has been signed | | | electronically.Number of Addenda: 0Note Initiated On: 11/15/2013 2:09 PM | | | [facility], [address] [place] [address] | | | [place] [address] | | | - Normal duodenal bulb, 2nd part of the duodenum, area of the papilla | | | and 3rd part of the duodenum. | | | - One duodenal ulcer with clean base. | | | - The retroflexed view confirmed previous findings, | | |Recommendation: | | | - Return patient to [facility] for [facility]. | | | - Clear liquid diet today. | | | - Continue present medications. | | | - Observe patient's clinical course. | | | - Repeat the upper endoscopy PRN for retreatment. | | |Lauri Garrison MD | | |11/15/2013 2:31 PM | | |This report has been signed electronically. | | |Number of Addenda: 0 | | |Note Initiated On: 11/15/2013 2:09 PM | | | [facility], [facility] [place], [place] | | | [address] | | + + --+ + + | Transcriptions | + + | Anil Greenwood - 11/15/2013 12:00 AM PDT | + + + +---------+ + + | Performing | Address | City/State/Zipcode | Phone Number | | Organization | | | | + +---------+ + + | [facility] | | | | + +---------+ + + CBC no Differential (11/15/2013 6:31 AM PDT) + + + + + + | Component | Value | Ref Range | Performed | Pathologist | | | | | At | Signature | + + + + + + | WBC | 13.0 (H) | 4.0 - 11.0 K/uL | [facility] | | | | | [facility] | | | | | | [facility]ICAL | | | | | | CENTER - | | | | | | LABORATORY | | + + + + + + | RBC | 2.54 (L) | 3.70 - 5.20 | [facility] | | | | | M/uL | [facility] | | | | | | [facility] | | | | | | CENTER - | | | | | | LABORATORY | | + + + + + + | Hemoglobin | 8.0 (L) | 11.5 - 16.0 | [facility] | | | | | g/dL | [facility] | | | | | | MEDICAL | | | | | | CENTER - | | | | | | LABORATORY | | + + + + + + | Hematocrit | 24.0 (L) | 34.0 - 47.0 % | [facility] | | | | | | [facility] | | | | | | MEDICAL | | | | | | CENTER - | | | | | | LABORATORY | | + + + + + + | MCV | 94.3 | 83.0 - 101.0 fL | [facility] | | | | | | [facility] | | | | | | [facility]ICAL | | | | | | CENTER - | | | | | | LABORATORY | | + + + + + + | MCH | 31.3 | 28.0 - 35.0 pg | [facility] | | | | | | [facility] | | | | | | [facility]ICAL | | | | | | CENTER - | | | | | | LABORATORY | | + + + + + + | MCHC | 33.2 | 32.0 - 36.0 | [facility] | | | | | g/dL | [facility] | | | | | | [facility]ICAL | | | | | | CENTER - | | | | | | LABORATORY | | + + + + + + | RDW-CV | 16.1 (H) | <15.0 % | [facility] | | | | | | [facility] | | | | | | [facility]ICAL | | | | | | CENTER - | | | | | | LABORATORY | | + + + + + + | Platelet | 440 | 140 - 440 K/uL | [facility] | | | Count | | | [facility] | | | | | | [facility]ICAL | | | | | | CENTER - | | | | | | LABORATORY | | + + + + + + | MPV | 9.2 | fL | [facility] | | | | | | [facility] | | | | | | [facility]ICAL | | | | | | CENTER - | | | | | | LABORATORY | | + + + + + + + + | Specimen | + + | Blood | + + + + + + + | Performing | Address | City/State/Zipcode | Phone Number | | Organization | | | | + + + + + | [facility] | [address] | [place] | [phone] | | [facility] | | [address] | | | - LABORATORY | | | | + + + + + | [facility] | [address] | [place] | | | [facility] | | [address] | | | - LABORATORY | | | | + + + + + Basic Metabolic Panel (11/15/2013 6:31 AM PDT) + + + + + + | Component | Value | Ref Range | Performed | Pathologist | | | | | At | Signature | + + + + + + | Na | 137 | 136 - 149 | [facility] | | | | | mmol/L | [facility] | | | | | | MEDICAL | | | | | | CENTER - | | | | | | LABORATORY | | + + + + + + | K | 3.9 | 3.5 - 5.1 | [facility] | | | | | mmol/L | [facility] | | | | | | MEDICAL | | | | | | CENTER - | | | | | | LABORATORY | | + + + + + + | Cl | 104 | 98 - 109 mmol/L | [facility] | | | | | | [facility] | | | | | | MEDICAL | | | | | | CENTER - | | | | | | LABORATORY | | + + + + + + | CO2 | 24 | 24 - 31 mmol/L | [facility] | | | | | | [facility] | | | | | | MEDICAL | | | | | | CENTER - | | | | | | LABORATORY | | + + + + + + | Anion Gap | 9 | 3 - 16 mmol/L | [facility] | | | | | | [facility] | | | | | | MEDICAL | | | | | | CENTER - | | | | | | LABORATORY | | + + + + + + | Glucose | 98 | 70 - 109 mg/dL | [facility] | | | | | | [facility] | | | | | | MEDICAL | | | | | | CENTER - | | | | | | LABORATORY | | + + + + + + | BUN | 16 | 7 - 18 mg/dL | [facility] | | | | | | [facility] | | [facility] | | | [facility]ICAL | | | | | | CENTER - | | | | | | LABORATORY | | + + + + + + | Creatinine | 0.61 | 0.60 - 1.30 | [facility] | | | | | mg/dL | [facility] | | | | | | MEDICAL | | | | | | CENTER - | | | | | | LABORATORY | | + + + + + + | eGFR if not | >60Comment: GLOMERULAR | >=60 | [facility] | | | | FILTRATION | mL/min/1.73m2 | [facility] | | | MAURITIAN | RATE,ESTIMATED | | MEDICAL | | | | mL/min/1.59x3Nnyf than | | CENTER - | | | | 60 Chronic kidney | | LABORATORY | | | | disease,if found over a | | | | | | 3-month period.Less than | | | | | | 15 Kidney failureFor | | | | | | | | | | | | Americans,multiply the | | | | | | calculated GFR by 1.21. | | | | | | | | | | + + + + + + | Calcium | 8.2 (L) | 8.3 - 10.5 | [facility] | | | | | mg/dL | [facility] | | | | | | MEDICAL | | | | | | CENTER - | | | | | | LABORATORY | | + + + + + + | BUN/Creatin | 26.2 | | [facility] | | | ine Ratio | | | [facility] | | | | | | [facility] | | | | | | CENTER - | | | | | | LABORATORY | | + + + + + + + + | Specimen | + + | Blood | + + + + + + + | Performing | Address | City/State/Zipcode | Phone Number | | Organization | | | | + + + + + | [facility] | [address] | [place] | [phone] | | [facility] | | [address] | | | - LABORATORY | | | | + + + + + | [facility] | [address] | [place] | | | [facility] | | [address] | | | - LABORATORY | | | | + + + + + CBC no Differential (11/15/2013 12:05 AM PDT) + + + + + + | Component | Value | Ref Range | Performed | Pathologist | | | | | At | Signature | + + + + + + | WBC | 16.5 (H) | 4.0 - 11.0 K/uL | [facility] | | | [facility] | [facility] - | | | | | | LABORATORY | | + + + + + + | RBC | 3.07 (L) | 3.70 - 5.20 | [facility] | | | | | M/uL | [facility] | | | | | | MEDICAL | | | | | | CENTER - | | | | | | LABORATORY | | + + + + + + | Hemoglobin | 9.4 (L) | 11.5 - 16.0 | [facility] | | | | | g/dL | [facility] | | | | | | MEDICAL | | | | | | CENTER - | | | | | | LABORATORY | | + + + + + + | Hematocrit | 28.9 (L) | 34.0 - 47.0 % | [facility] | | | | | | [facility] | | | | | | MEDICAL | | | | | | CENTER - | | | | | | LABORATORY | | + + + + + + | MCV | 94.2 | 83.0 - 101.0 fL | [facility] | | | | | | [facility] | | | | | | MEDICAL | | | | | | CENTER - | | | | | | LABORATORY | | + + + + + + | MCH | 30.7 | 28.0 - 35.0 pg | [facility] | | | | | | [facility] | | | | | | MEDICAL | | | | | | CENTER - | | | | | | LABORATORY | | + + + + + + | MCHC | 32.6 | 32.0 - 36.0 | [facility] | | | | | g/dL | [facility] | | | | | | MEDICAL | | | | | | CENTER - | | | | | | LABORATORY | | + + + + + + | RDW-CV | 16.5 (H) | <15.0 % | [facility] | | | | | | [facility] | | | | | | MEDICAL | | | | | | CENTER - | | | | | | LABORATORY | | + + + + + + | Platelet | 392 | 140 - 440 K/uL | [facility] | | | Count | | | [facility] | | | | | | MEDICAL | | | | | | CENTER - | | | | | | LABORATORY | | + + + + + + | MPV | 9.3 | fL | [facility] | | | | | | [facility] | | | | | | MEDICAL | | | | | | CENTER - | | | | | | LABORATORY | | + + + + + + + + | Specimen | + + | Blood | + + + + + + + | Performing | Address | City/State/Zipcode | Phone Number | | Organization | | | | + + + + + | [facility] | [address] | [place], [place] | [phone] | | [facility] | | [address] | | | - LABORATORY | | | | + + + + + | [facility] | [address] | [place], [place] | | | [facility] | | [address] | | | - LABORATORY | | | | + + + + + CBC no Differential (11/14/2013 6:05 PM PDT) + + + + + + | Component | Value | Ref Range | Performed | Pathologist | | | | | At | Signature | + + + + + + | WBC | 17.1 (H) | 4.0 - 11.0 K/uL | [facility] | | | | | | [facility] | | | | | | [facility]ICAL | | | | | | CENTER - | | | | | | LABORATORY | | + + + + + + | RBC | 2.91 (L) | 3.70 - 5.20 | [facility] | | | | | M/uL | [facility] | | | | | | MEDICAL | | | | | | CENTER - | | | | | | LABORATORY | | + + + + + + | Hemoglobin | 8.8 (L) | 11.5 - 16.0 | [facility] | | | | | g/dL | [facility] | | | | | | MEDICAL | | | | | | CENTER - | | | | | | LABORATORY | | + + + + + + | Hematocrit | 27.2 (L) | 34.0 - 47.0 % | [facility] | | | | | | [facility] | | | | | | MEDICAL | | | | | | CENTER - | | | | | | LABORATORY | | + + + + + + | MCV | 93.6 | 83.0 - 101.0 fL | [facility] | | | | | | [facility] | | | | | | MEDICAL | | | | | | CENTER - | | | | | | LABORATORY | | + + + + + + | MCH | 30.4 | 28.0 - 35.0 pg | [facility] | | | | | | [facility] | | | | | | MEDICAL | | | | | | CENTER - | | | | | | LABORATORY | | + + + + + + | MCHC | 32.5 | 32.0 - 36.0 | [facility] | | | | | g/dL | [facility] | | | | | | MEDICAL | | | | | | CENTER - | | | | | | LABORATORY | | + + + + + + | RDW-CV | 16.1 (H) | <15.0 % | [facility] | | | | | | [facility] | | | | | | MEDICAL | | | | | | CENTER - | | | | | | LABORATORY | | + + + + + + | Platelet | 480 (H) | 140 - 440 K/uL | [facility] | | | Count | | | [facility] | | | | | | MEDICAL | | | | | | CENTER - | | | | | | LABORATORY | | + + + + + + | MPV | 8.6 | fL | [facility] | | | | | | [facility] | | | | | | MEDICAL | | | | | | CENTER - | | | | | | LABORATORY | | + + + + + + + + | Specimen | + + | Blood | + + + + + + + | Performing | Address | City/State/Zipcode | Phone Number | | Organization | | | | + + + + + | [facility] | [address] | [place] | [phone] | | [facility] | | [address] | | | - LABORATORY | | | | + + + + + | [facility] | [address] | [place] | | | [facility] | | [address] | | | - LABORATORY | | | | + + + + + Type and Screen (11/14/2013 12:24 PM PDT) + + + + + + | Component | Value | Ref Range | Performed | Pathologist | | | | | At | Signature | + + + + + + | ABO | O | | [facility] | | | | | [facility] | | | | | | MEDICAL | | | | | | CENTER - | | | | | | BLOOD BANK | | + + + + + + | Rh Type | Positive | | [facility] | | | | | [facility] | | | | | | MEDICAL | | | | | | CENTER - | | | | | | BLOOD BANK | | + + + + + + | Antibody | Negative | | [facility] | | | Screen | | | [facility] | | | | | | MEDICAL | | | | | | CENTER - | | | | | | BLOOD BANK | | + + + + + + + + | Specimen | + + | Blood specimen | | (specimen) | + + + + + + + | Performing | Address | City/State/Zipcode | Phone Number | | Organization | | | | + + + + + | [facility] | [address] | [place] | | | [facility] | | [address] | | | - BLOOD BANK | | | | + + + + + Basic Metabolic Panel (11/14/2013 11:53 AM PDT) + + + + + + | Component | Value | Ref Range | Performed | Pathologist | | | | | At | Signature | + + + + + + | Na | 133 (L) | 136 - 149 | [facility] | | | | | mmol/L | [facility] | | | | | | MEDICAL | | | | | | CENTER - | | | | | | LABORATORY | | + + + + + + | K | 4.3 | 3.5 - 5.1 | [facility] | | | | | mmol/L | [facility] | | | | | | MEDICAL | | | | | | CENTER - | | | | | | LABORATORY | | + + + + + + | Cl | 98 | 98 - 109 mmol/L | [facility] | | | | | | [facility] | | | | | | MEDICAL | | | | | | CENTER - | | | | | | LABORATORY | | + + + + + + | CO2 | 25 | 24 - 31 mmol/L | [facility] | | | | | | [facility] | | | | | | MEDICAL | | | | | | CENTER - | | | | | | LABORATORY | | + + + + + + | Anion Gap | 10 | 3 - 16 mmol/L | [facility] | | | | | | [facility] | | | | | | [facility] | | | | | | CENTER - | | | | | | LABORATORY | | + + + + + + | Glucose | 104 | 70 - 109 mg/dL | [facility] | | | | | [facility] | | | | | [facility] | | | | | | CENTER - | | | | | | LABORATORY | | + + + + + + | BUN | 27 (H) | 7 - 18 mg/dL | [facility] | | | | | | [facility] | | | | | | [facility] | | | | | | CENTER - | | | | | | LABORATORY | | + + + + + + | Creatinine | 0.66 | 0.60 - 1.30 | [facility] | | | | | mg/dL | [facility] | | | | | | MEDICAL | | | | | | CENTER - | | | | | | LABORATORY | | + + + + + + | eGFR if not | >60Comment: GLOMERULAR | >=60 | [facility] | | | | FILTRATION | mL/min/1.73m2 | [facility] | | | MAURITIAN | RATE,ESTIMATED | | MEDICAL | | | | mL/min/1.62m8Ylgh than | | CENTER - | | | | 60 Chronic kidney | | LABORATORY | | | | disease,if found over a | | | | | | 3-month period.Less than | | | | | | 15 Kidney failureFor | | | | | | | | | | | | Americans,multiply the | | | | | | calculated GFR by 1.21. | | | | | | | | | | + + + + + + | Calcium | 8.8 | 8.3 - 10.5 | [facility] | | | | | mg/dL | [facility] | | | | | | MEDICAL | | | | | | CENTER - | | | | | | LABORATORY | | + + + + + + | BUN/Creatin | 40.9 | | [facility] | | | ine Ratio | | | [facility] | | | | | | [facility] | | | | | | CENTER - | | | | | | LABORATORY | | + + + + + + + + | Specimen | + + | Blood | + + + + + + + | Performing | Address | City/State/Zipcode | Phone Number | | Organization | | | | + + + + + | [facility] | [address] | [place] | [phone] | | [facility] | | [address] | | | - LABORATORY | | | | + + + + + | [facility] | [address] | [place] | | | [facility] | | [address] | | | - LABORATORY | | | | + + + + + CBC with Differential (11/14/2013 11:53 AM PDT) + + + + + + | Component | Value | Ref Range | Performed | Pathologist | | | | | At | Signature | + + + + + + | WBC | 17.8 (H) | 4.0 - 11.0 K/uL | [facility] | | | | | | [facility] | | | | | | MEDICAL | | | | | | CENTER - | | | | | | LABORATORY | | + + + + + + | RBC | 3.11 (L) | 3.70 - 5.20 | [facility] | | | | | M/uL | [facility] | | | | | | MEDICAL | | | | | | CENTER - | | | | | | LABORATORY | | + + + + + + | Hemoglobin | 10.1 (L) | 11.5 - 16.0 | [facility] | | | | | g/dL | [facility] | | | | | | MEDICAL | | | | | | CENTER - | | | | | | LABORATORY | | + + + + + + | Hematocrit | 29.0 (L) | 34.0 - 47.0 % | [facility] | | | | | | [facility] | | | | | | MEDICAL | | | | | | CENTER - | | | | | | LABORATORY | | + + + + + + | MCV | 93.4 | 83.0 - 101.0 fL | [facility] | | | | | | [facility] | | | | | | MEDICAL | | | | | | CENTER - | | | | | | LABORATORY | | + + + + + + | MCH | 32.4 | 28.0 - 35.0 pg | [facility] | | | | | | [facility] | | | | | | MEDICAL | | | | | | CENTER - | | | | | | LABORATORY | | + + + + + + | MCHC | 34.7 | 32.0 - 36.0 | [facility] | | | | | g/dL | [facility] | | | | | | MEDICAL | | | | | | CENTER - | | | | | | LABORATORY | | + + + + + + | RDW-CV | 16.0 (H) | <15.0 % | [facility] | | | | | | [facility] | | | | | | MEDICAL | | | | | | CENTER - | | | | | | LABORATORY | | + + + + + + | Platelet | 539 (H) | 140 - 440 K/uL | [facility] | | | Count | | | [facility] | | | | | | MEDICAL | | | | | | CENTER - | | | | | | LABORATORY | | + + + + + + | MPV | 9.5 | fL | [facility] | | | | | | [facility] | | | | | | MEDICAL | | | | | | CENTER - | | | | | | LABORATORY | | + + + + + + | % | 78.8 | 45.0 - 82.0 % | [facility] | | | Neutrophils | | | [facility] | | | | | | MEDICAL | | | | | | CENTER - | | | | | | LABORATORY | | + + + + + + | % | 13.2 (L) | 20.0 - 45.0 % | [facility] | | | Lymphocytes | | | [facility] | | | | | | MEDICAL | | | | | | CENTER - | | | | | | LABORATORY | | + + + + + + | % Monocytes | 6.3 | 4.0 - 12.0 % | [facility] | | | | | | [facility] | | | | | | [facility] | | | | | | [facility] - | | | | | | LABORATORY | | + + + + + + | % | 1.0 | 0.0 - 5.0 % | [facility] | | | Eosinophils | | | [facility] | | | | | | [facility]ICAL | | | | | | CENTER - | | | | | | LABORATORY | | + + + + + + | % Basophils | 0.7 | 0.0 - 1.0 % | [facility] | | | | | | [facility] | | | | | | [facility] | | | | | | [facility] - | | | | | | LABORATORY | | + + + + + + | Absolute | 14.00 (H) | 1.80 - 8.50 | [facility] | | | Neutrophils | | K/uL | [facility] | | | | | | [facility] | | | | | | [facility] - | | | | | | LABORATORY | | + + + + + + | Absolute | 2.30 | 0.60 - 3.20 | [facility] | | | Lymphocytes | | K/uL | [facility] | | | | | | [facility] | | | | | | CENTER - | | | | | | LABORATORY | | + + + + + + | Absolute | 1.10 (H) | 0.00 - 1.00 | [facility] | | | Monocytes | | K/uL | [facility] | | | | | | [facility] | | | | | | CENTER - | | | | | | LABORATORY | | + + + + + + | Absolute | 0.20 | 0.00 - 0.40 | [facility] | | | Eosinophils | | K/uL | [facility] | | | | | | [facility] | | | | | | CENTER - | | | | | | LABORATORY | | + + + + + + | Absolute | 0.10 | 0.00 - 0.10 | [facility] | | | Basophils | | K/uL | [facility] | | | | | | [facility] | | | | | | CENTER - | | | | | | LABORATORY | | + + + + + + + + | Specimen | + + | Blood | + + + + + + + | Performing | Address | City/State/Zipcode | Phone Number | | Organization | | | | + + + + + | [facility] | [address] | [place], [place] | [phone] | | [facility] | | [address] | | | - LABORATORY | | | | + + + + + | [facility] | [address] | [place], [place] | | | [facility] | | [address] | | | - LABORATORY | | | | + + + + + ED INFORMATION EXCHANGE (11/14/2013 10:23 AM PDT) + + | Specimen | + + | | + + + + + | Narrative | Performed At | + + + | VISIT TRACKING (3 MO.) Visit Date Location | [facility] | | Type Diagnoses | | | -------- | | | ---- 11/14/2013 10:22 [place] | | | [facility] Emergency black stool; 11/03/2013 | | | 07:39 [facility] Back | | | Pain; | | | Unspecified essential | | | hypertension; | | | Unspecified | | | acquired hypothyroidism; | | | | | | Back/Rib Pain; | | | Other specified | | | aftercare; | | | Backache, | | | unspecified; | | | Other abnormal | | | blood chemistry; | | | Hemorrhage of | | | gastrointestinal tract, unspecified; | | | | | | Asthma,unspecified type, unspecified; 09/20/2013 00:12 | | | [facility] Thoracic or | | | lumbosacral neuritis or radiculitis, unspecified; | | | | | | Flank Pain; | | | | | | back/side pain; 09/15/2013 09:18 [facility] | [place] [facility] Sprain of thoracic; | | | | | | Upper Back Pain; | | | | | | Back Pain; VISIT COUNT (1 YR.) Visits [place] | | | Location ------ --------- 4 0 | | | [facility] 4 | | | 0 Total Note: Visits indicate total | | | known visits. [place] are the number of primary diagnoses on | | | the [facility]'s non-emergent dx list. | | | | | | --- [facility] has no Care Guidelines for this patient. | | + + + + +---------+ + + | Performing | Address | City/State/Zipcode | Phone Number | | Organization | | | | + +---------+ + + | [facility] | | | | + +---------+ + + documented in this encounter Visit Diagnoses + + | Diagnosis | + + | UGIB (upper gastrointestinal bleed) - Primary Hemorrhage of gastrointestinal tract, | | unspecified | + + | Upper GI bleeding Hemorrhage of gastrointestinal tract, unspecified | + + | Duodenal ulcer Duodenal ulcer, unspecified as acute or chronic, without hemorrhage, | | perforation, or obstruction | + + | Asthma Unspecified asthma | + + | Hyperlipidemia Other and unspecified hyperlipidemia | + + | Back pain Backache, unspecified | + + | Hypothyroidism Unspecified hypothyroidism | + + | Hypertension Unspecified essential hypertension | + + | Abdominal pain, right upper quadrant | + + | Anemia due to blood loss, acute Acute posthemorrhagic anemia | + + | Hyperlipidemia, mixed Mixed hyperlipidemia | + + documented in this encounter Administered Medications + +--------+ +------+------+------+ | Medication Order | MAR | Action | Dose | Rate | Site | | | Action | Date | | | | + +--------+ +------+------+------+ | amLODIPine (NORVASC) tablet 5 | Given | 11/18/19 | 5 mg | | | | mg 5 mg, Oral, DAILY, First dose | | 14 8:44 | | | | | on 7/6/14 at 1500 | | AM PDT | | | | + +--------+ +------+------+------+ +-------+ +------+---+---+ | Given | 11/17/19 | 5 mg | | | | | 14 8:46 | | | | | | AM PDT | | | | +-------+ +------+---+---+ | Given | 11/16/19 | 5 mg | | | | | 14 9:09 | | | | | | AM PDT | | | | +-------+ +------+---+---+ +---+---+ | | | +---+---+ + +-------+ +-------+---+---+ | aspirin chewable tablet 81 mg | Given | 11/18/19 | 81 mg | | | | 81 mg, Oral, DAILY, First dose on | | 14 8:44 | | | | | 11/14/13 at 1500 | | AM PDT | | | | + +-------+ +-------+---+---+ +-------+ +-------+---+---+ | Given | 11/17/19 | 81 mg | | | | | 14 8:46 | | | | | | AM PDT | | | | +-------+ +-------+---+---+ | Given | 11/16/19 | 81 mg | | | | | 14 9:09 | | | | | | AM PDT | | | | +-------+ +-------+---+---+ +---+---+ | | | +---+---+ + +-------+ +---------+---+---+ | edztqavj-lejtlxenhy-bmvsfxojzy | Given | 11/16/19 | 1 spray | | | | (CETACAINE) spray PRN, Starting | | 14 2:09 | | | | | 11/15/13 at 1409 | | PM PDT | | | | + +-------+ +---------+---+---+ +---+---+ | | | +---+---+ + +-------+ +-------+---+---+ | fenofibrate (LOFIBRA) tablet 54 | Given | 11/18/19 | 54 mg | | | | mg 54 mg, Oral, DAILY, First | | 14 8:44 | | | | | dose on 11/14/13 at 1500 | | AM PDT | | | | + +-------+ +-------+---+---+ +-------+ +-------+---+---+ | Given | 11/17/19 | 54 mg | | | | | 14 8:46 | | | | | | AM PDT | | | | +-------+ +-------+---+---+ | Given | 11/16/19 | 54 mg | | | | | 14 9:08 | | | | | | AM PDT | | | | +-------+ +-------+---+---+ +---+---+ | | | +---+---+ + +-------+ + +---+---+ | HYDROcodone-acetaminophen | Given | 11/17/19 | 1 tablet | | | | (NORCO) 7.5-325 mg per tablet 1-2 | | 14 11:15 | | | | | tablet 1-2 tablet, Oral, EVERY | | PM PDT | | | | | 4 HOURS PRN, Pain, Starting Sun | | | | | | | 11/14/13 at 1435, Maximum | | | | | | | acetaminophen is 4000 mg/day from | | | | | | | all sources, | | | | | | + +-------+ + +---+---+ +---+---+ | | | +---+---+ + +-------+ +---------+---+---+ | levothyroxine (SYNTHROID, | Given | 11/18/19 | 125 mcg | | | | LEVOTHROID) tablet 125 mcg 125 | | 14 6:39 | | | | | mcg, Oral, DAILY BEFORE | | AM PDT | | | | | BREAKFAST, First dose on Sun | | | | | | | 11/14/13 at 1500, Give before | | | | | | | breakfast., | | | | | | + +-------+ +---------+---+---+ +-------+ +---------+---+---+ | Given | 11/17/19 | 125 mcg | | | | | 14 6:52 | | | | | | AM PDT | | | | +-------+ +---------+---+---+ | Given | 11/16/19 | 125 mcg | | | | | 14 7:57 | | | | | | AM PDT | | | | +-------+ +---------+---+---+ +---+---+ | | | +---+---+ + +-------+ +--------+---+---+ | LORazepam (ATIVAN) tablet 0.5 | Given | 11/17/19 | 0.5 mg | | | | mg 0.5 mg, Oral, NIGHTLY PRN, | | 14 10:09 | | | | | Insomnia, Starting 11/14/13 at | | PM PDT | | | | | 1435 | | | | | | + +-------+ +--------+---+---+ +-------+ +--------+---+---+ | Given | 11/16/19 | 0.5 mg | | | | | 14 11:26 | | | | | | PM PDT | | | | +-------+ +--------+---+---+ | Given | 11/16/19 | 0.5 mg | | | | | 14 12:38 | | | | | | AM PDT | | | | +-------+ +--------+---+---+ +---+---+ | | | +---+---+ + +-------+ +-------+---+---+ | meperidine (DEMEROL) 50 mg/mL | Given | 11/16/19 | 50 mg | | | | injection PRN, Pain, Starting | | 14 2:11 | | | | | 11/15/13 at 1411 | | PM PDT | | | | + +-------+ +-------+---+---+ +---+---+ | | | +---+---+ + +-------+ +-------+---+---+ | metoprolol succinate | Given | 11/18/19 | 25 mg | | | | (TOPROL-XL) ER tablet 25 mg 25 | | 14 8:44 | | | | | mg, Oral, DAILY, First dose on | | AM PDT | | | | | 11/14/13 at 1500, Tablet may be | | | | | | | cut where scored but do not | | | | | | | crush., | | | | | | + +-------+ +-------+---+---+ +-------+ +-------+---+---+ | Given | 11/17/19 | 25 mg | | | | | 14 8:46 | | | | | | AM PDT | | | | +-------+ +-------+---+---+ | Given | 11/16/19 | 25 mg | | | | | 14 9:09 | | | | | | AM PDT | | | | +-------+ +-------+---+---+ +---+---+ | | | +---+---+ + +-------+ +------+---+---+ | midazolam (VERSED) 5 mg/mL | Given | 11/16/19 | 2 mg | | | | injection PRN, Anxiety, Starting | | 14 2:12 | | | | | 11/15/13 at 1412 | | PM PDT | | | | + +-------+ +------+---+---+ +---+---+ | | | +---+---+ + +---------+ +---------+ +---+ | pantoprazole (PROTONIX) 0.8 | New Bag | 11/17/19 | 8 mg/hr | 10 mL/hr | | | mg/mL in sodium chloride 0.9% 100 | | 14 6:51 | | | | | mL infusion 8 mg/hr (rounded to | | AM PDT | | | | | 10 mL/hr), at 10 mL/hr, | | | | | | | Intravenous, CONTINUOUS, Starting | | | | | | | 11/14/13 at 1300 | | | | | | + +---------+ +---------+ +---+ + + +---------+ +---+ | New Bag | 11/16/19 | 8 mg/hr | 10 mL/hr | | | | 14 8:44 | | | | | | PM PDT | | | | + + +---------+ +---+ | Restarted | 11/16/19 | 8 mg/hr | 10 mL/hr | | | | 14 4:08 | | | | | | PM PDT | | | | + + +---------+ +---+ +---+---+ | | | +---+---+ + +-------+ +-------+---+---+ | pantoprazole (PROTONIX) DR | Given | 11/18/19 | 40 mg | | | | tablet 40 mg 40 mg, Oral, 2 | | 14 6:39 | | | | | TIMES DAILY BEFORE MEALS, First | | AM PDT | | | | | dose on Fri11/16/13 at 1115, Do | | | | | | | not cut or crush., | | | | | | + +-------+ +-------+---+---+ +-------+ +-------+---+---+ | Given | 11/17/19 | 40 mg | | | | | 14 2:14 | | | | | | PM PDT | | | | +-------+ +-------+---+---+ +---+---+ | | | +---+---+ + +-------+ +-------+---+---+ | pantoprazole (PROTONIX) | Given | 11/15/19 | 80 mg | | | | injection 80 mg 80 mg, | | 14 12:53 | | | | | Intravenous, ONCE, [place] 11/14/13 at | | PM PDT | | | | | 1300, For 1 dose, If | | | | | | | reconstituting, mix each 40 mg | | | | | | | vial with 10 mL NS to make 4 | | | | | | | mg/mL., | | | | | | + +-------+ +-------+---+---+ +---+---+ | | | +---+---+ documented in this encounter
--- OUTSIDE RECORDS SUMMARY | ~2019-05-18 | XMS | Encounter Summary ---
Demographics + + + | Address | [address] | | | [place] [address] | + + + | Home Phone | | + + + | Preferred Language | Unknown | + + + | Marital Status | | + + + | Jehovah'S Witness Affiliation | Unknown | + + + | Race | Unknown | + + + | Ethnic Group | Unknown | + + + Author + + + | Author | [facility] | | | and [place] | + + + | Organization | [facility] | | | and [place] | + + + | Address | Unknown | + + + | Phone | Unavailable | + + + Support + + + + + | Name | Relationship | Address | Phone | + + + + + | Osmin Jackson | ECON | [address] | | | | | [place] [address] | | + + + + + | Hunter Jackson | ECON | [place] | | + + + + + | Wes Jackson | ECON | [place], [place] | | + + + + + | Oziel Jackson | ECON | [place], [place] | | + + + + + Care Team Providers + +------+ + | Care Assigner Name | Role | Phone | + [...] Description | +--------+--------+ + + + | 01/20/ | Refill | [facility] | Rodolfo Cruz, | Medication Refill | | 2013 | | MEDICINE [address] | [place] [address] | | | | | [place] | [place] [address] | | | | | [place] [address] | [address] | | | | | [phone] | | | +--------+--------+ + + + [...] ST | | | | | | [place] | | | | | | [address] | | | | | | | | +--------+---------+ + + + | 11/21/ | Office | Cardiology | Yesi, | | | 2019 | Visit | | JOSE [facility]ERTO [address] | | | | | | [place] | | | | | | [place] [address] | | | | | | [phone] | | | | | | | | +--------+---------+ + + + documented as of this encounter Visit Diagnoses Not on filedocumented in this encounter"
--- OUTSIDE RECORDS SUMMARY | ~2019-05-18 | XMS | Encounter Summary ---
Demographics + + + | Address | [address] | | | [place] [address] | + + + | Home Phone | | + + + | Preferred Language | Unknown | + + + | Marital Status | Single | + + + | Buddhist Affiliation | Unknown | + + + | Race | Unknown | + + + | Ethnic Group | Other Race | + + + Author + + + | Author | [facility] | + + + | Organization | [facility] | + + + | Address | Unknown | + + + | Phone | Unavailable | + + + Support + + +---------+ + | Name | Relationship | Address | Phone | + + +---------+ + | None None | ECON | Unknown | Unavailable | + + +---------+ + Care Team Providers + +------+ + | Care Coating Machine Feeder Name | Role | Phone | + +------+ + PCP | Unavailable | + +------+ + Encounter Details +--------+ + + + + | Date | Type | Department | Care Team | Description | +--------+ + + + + | 04/17/ | Ancillary | [facility] | | | | 2004 | Registratio | Practice [address] | | | | | n | [facility] | | | | | | [place] [address] | | | | | | [phone] | | | +--------+ + + + [...] Not on filedocumented as of this encounter Visit Diagnoses Not on filedocumented in this encounter"
--- OUTSIDE RECORDS SUMMARY | ~2019-05-18 | XMS | Encounter Summary ---
Demographics + + + | Address | [address] | | | [place] [address] | + + + | Home Phone | | + + + | Preferred Language | Unknown | + + + | Marital Status | | + + + | Christianity Affiliation | Unknown | + + + | Race | Unknown | + + + | Ethnic Group | Unknown | + + + Author + + + | Author | [facility] | | | and [place] | + + + | Organization | [facility] | | | and [place] | + + + | Address | Unknown | + + + | Phone | Unavailable | + + + Support + + + + + | Name | Relationship | Address | Phone | + + + + + | Osmin Jackson | ECON | [address] | | | | | [place] [address] | | + + + + + | Hunter Jackson | ECON | [place] | | + + + + + | Wes Jackson | ECON | [place], [place] | | + + + + + | Oziel Jackson | ECON | [place], [place] | | + + + + + Care Team Providers + +------+ + | Care Pants Maker Name | Role | Phone | + +------+ + PCP | Unavailable | + +------+ + Reason for Visit + + + | Reason | Comments | + + + | Appointment | | + + + Encounter Details +--------+ + + + + | Date | Type | Department | Care Team | Description | +--------+ + + + + | 05/21/ | Telephone | [facility] | [place], | Appointment | | 2016 | | CARDIOLOGY [address] | [address]ERTO [address] | | | | | [place], | [place], | | | | | [place] [address] | [place] [address] | | | | | [phone] | [phone] | | | | | | | [...] [address] | | | | | | [address] | | | | | | | | +--------+---------+ + + + | 11/21/ | Office | Cardiology | Yes[place], | | | 2019 | Visit | | [address]ERT[address] | | | | | | [place] [address] [place] | | | | | | [place] [address] | | | | | | [phone] | | | | | | | | +--------+---------+ + + + documented as of this encounter Visit Diagnoses Not on filedocumented in this encounter"
--- OUTSIDE RECORDS SUMMARY | ~2019-05-18 | XMS | Encounter Summary ---
Demographics + + + | Address | [address] | | | [place] [address] | + + + | Home Phone | | + + + | Preferred Language | Unknown | + + + | Marital Status | | + + + | Latter-Day Affiliation | Unknown | + + + | Race | Unknown | + + + | Ethnic Group | Unknown | + + + Author + + + | Author | [facility] | | | and [place] | + + + | Organization | [facility] | | | and [place] | + + + | Address | Unknown | + + + | Phone | Unavailable | + + + Support + + + + + | Name | Relationship | Address | Phone | + + + + + | Osmin Jackson | ECON | [address] | | | | | [place] [address] | | + + + + + | Hunter Jackson | ECON | [place] | | + + + + + | Wes Jackson | ECON | [place], [place] | | + + + + + | Oziel Jackson | ECON | [place], [place] | | + + + + + Care Team Providers + +------+ + | Care Hr Receptionist Name | Role | Phone | + +------+ + | Gunderson, Kellie PA | PCP | | + +------+ + Reason for Visit +--------+ + | Reason | Comments | +--------+ + | Other | | +--------+ + Encounter Details +--------+ + + + + | Date | Type | Department | Care Team | Description | +--------+ + + + + | 07/07/ | Telephone | [facility] [place] | [place], | Other | | 2017 | | [facility] [address] | JOSE AL[address]ERTO [address] | | | | | [place], | [place], | | | | | [place] [address] | [place] [address] | | | | | [phone] | [phone] | | | | | | | [...] [address] | | | | | | [id number] | | | | | | | | +--------+---------+ + + + | 11/21/ | Office | Cardiology | Yesi | | | 2019 | Visit | | [facility] [facility]ERT[facility] [address] | | | | | | [place] | | | | | | [place] [address] | | | | | | [phone] | | | | | | | | +--------+---------+ + + + documented as of this encounter Visit Diagnoses Not on filedocumented in this encounter"
--- OUTSIDE RECORDS SUMMARY | ~2019-05-18 | XMS | Encounter Summary ---
Demographics + + + | Address | [address] | | | [place] [address] | + + + | Home Phone | | + + + | Preferred Language | Unknown | + + + | Marital Status | | + + + | Jainism Affiliation | Unknown | + + + | Race | Unknown | + + + | Ethnic Group | Unknown | + + + Author + + + | Author | [facility] | | | and [place] | + + + | Organization | [facility] | | | and [place] | + + + | Address | Unknown | + + + | Phone | Unavailable | + + + Support + + + + + | Name | Relationship | Address | Phone | + + + + + | Osmin Jackson | ECON | [address] | | | | | [place] [address] | | + + + + + | Hunter Jackson | ECON | [place] | | + + + + + | Wes Jackson | ECON | [place], [place] | | + + + + + | Oziel Jackson | ECON | [place], [place] | | + + + + + Care Team Providers + +------+ + | Care Wire Stitcher Operator Name | Role | Phone | + +------+ + | Rodolfo Cruz MD | PCP | | + +------+ + Encounter Details +--------+ + + + + | Date | Type | Department | Care Team | Description | +--------+ + + + + | 11/06/ | Hospital | [facility] | Rodolfo Cruz, | Hives of unknown | | 2016 | Encounter | [facility] | MD [address] | origin | | | | [address] | [place] | | | | | [place] | [id number] | | | | | [address] | | | | | | [phone] | | | +--------+ + + + [...] + + documented as of this encounter Medications at Time of Discharge [...] +---------+ + + | amLODIPine | Take 2 tablets by | 60 | 5 | 07/13/19 | | | (NORVASC) 5 mg | mouth Daily. | tablet | | 16 | 6 | | tablet | | | | | | + + + +---------+ + + | Blood Glucose | Test blood sugar | 1 each | 0 | 11/07/19 | | | Monitoring Suppl | once daily or as | | | 16 | 7 | | MATILDA | directed for | | | | | | | signs/symptoms of | | | | | | | hyperglycemia | | | | | + + + +---------+ + + | Blood Glucose | Check Q am and with | 100 | 0 | 11/07/19 | | | Monitoring Suppl | symptoms | each | | 16 | 7 | | W/DEVICE | | | | | | | KITIndications: | | | | | | | Hyperglycemia | | | | | | + + + +---------+ + + | cetirizine | Take 10 mg by mouth | | 0 | | | | (ZYRTEC) 10 mg | as needed for | | | | 7 | | tablet | Allergies. | | | | | + + + +---------+ + + | escitalopram | TAKE ONE TABLET BY | 90 | 1 | 07/26/19 | | | (LEXAPRO) 10 mg | MOUTH EVERY DAY | tablet | | 16 | 7 | | tablet | | | | | | + + + +---------+ + + | eszopiclone | Take 1 tablet by | 90 | 0 | 08/17/19 | | | (LUNESTA) 2 MG | mouth nightly. | tablet | | 16 | 6 | | TABSIndications: | | | | | | | Insomnia, | | | | | | | unspecified insomnia | | | | | | + + + +---------+ + + | EZ SMART BLOOD | Test blood sugar | 100 | 3 | 11/07/19 | | | GLUCOSE LANCETS | once daily or as | each | | 16 | 7 | | MISCIndications: | directed for | | | | | | Hyperglycemia | signs/symptoms of | | | | | | | hyperglycemia | | | | | + + [...] tablet by | 90 | 1 | 06/22/19 | | | 20 mg | mouth Daily. | tablet | | 16 | 6 | | tabletIndications: | | | | | | | Essential | | | | | | | hypertension | | | | | | + + + +---------+ + + | | Take 2 tablets by | | 0 | | | | Glucosamine-Chondroi | mouth Daily. | | | | 8 | | tin (COSAMIN DS PO) | | | | | | + + + +---------+ + + | Glucose Blood | Test blood sugar | 100 | 3 | 11/07/19 | | | (BLOOD GLUCOSE TEST | once daily or as | each | | 16 | 7 | | STRIPS) STRP | directed for | | | | | | | signs/symptoms of | | | | | | | hyperglycemia | | | | | + + + +---------+ + + | | One po qd prn pain, | 80 | 0 | 11/07/19 | | | HYDROcodone-acetamin | avoid routine use, | tablet | | 16 | 6 | | ophen (NORCO) | 90 day [...] + +---------+ + + | levothyroxine | TAKE ONE TABLET BY | 90 | 3 | 05/01/20 | | | (SYNTHROID, | MOUTH EVERY MORNING | tablet | | 15 | 7 | | LEVOTHROID) 100 mcg | BEFORE BREAKFAST | | | | | | tablet [...] + + + +---------+ + + | [place] 3 1000 MG | Take by mouth. | | 0 | | | | CAPS | | | | | 7 | + + + +---------+ + + | omeprazole | Take one capsule | 90 | 3 | 01/27/20 | | | (PRILOSEC) 20 mg | once daily before | capsule | | 15 | 7 | | capsule | breakfast. | | | | | + + + +---------+ + + | omeprazole | Take one capsule | 90 | 3 | 01/24/20 | | | (PRILOSEC) 20 mg | once daily before | capsule | | 15 | 6 | | capsule | breakfast. | | | | | + + [...] + + + +---------+ + + | UNABLE TO FIND | Patient states that | | 0 | | | | | she is taking an | | | | 7 | | | antibiotic at this | | | | | | | time. Unknown name | | | | | | | or dosage. | | | | | + + + +---------+ + + documented as of this encounter Plan of Treatment +--------+---------+ + + + | Date | Type | Specialty | Care Team | Description | +--------+---------+ + + + | 06/02/ | Office | Orthopedic Surgery | Ulysses Jensen | | | 2019 | Visit | | MD [address] | | | | | | [place], [place] | | | | | | [address] | | | | | | | | +--------+---------+ + + + | 11/21/ | Office | Cardiology | Yesi, | | | 2019 | Visit | | JOSE ALBERTO Linder [address] | | | | | | [place], | | | | | | [place] [address] | | | | | | [phone] | | | | | | | | +--------+---------+ + + + documented as of this encounter Procedures + +--------+ + + + | Procedure Name | Priori | Date/Time | Associated Diagnosis | Comments | | | ty | | | | + +--------+ + + + | URINALYSIS WITH | Routin | 11/07/2015 | Hives of unknown | Results for this | | MICROSCOPIC IF | e | 1:44 PM | origin | procedure are in the | | INDICATED | | PDT | | results section. | + +--------+ + + + | SEDIMENTATION RATE | Routin | 11/07/2015 | Hives of unknown | Results for this | | | e | 1:23 PM | origin | procedure are in the | | | | PDT | | results section. | + +--------+ + + + | CBC WITH | Routin | 11/07/2015 | Hives of unknown | Results for this | | DIFFERENTIAL | e | 1:23 PM | origin | procedure are in the | | | | PDT | | results section. | + +--------+ + + + | COMPREHENSIVE | Routin | 11/07/2015 | Hives of unknown | Results for this | | METABOLIC PANEL | e | 1:23 PM | origin | procedure are in the | | | | PDT | | results section. | + +--------+ + + + documented in this encounter Results Urinalysis with Microscopic if Indicated (11/07/2015 1:44 PM PDT) + + + + + + | Component | Value | Ref Range | Performed | Pathologist | | | | | At | Signature | + + + + + + | Color, | Yellow | Light Yellow, | [facility] | | | Urine | | Yellow, Straw | [facility] | | | | | | [facility] | | | | | | [facility] - | | | | | | LABORATORY | | + + + + + + | Clarity | Clear | Clear | [facility] | | | | | | [facility] | | | | | | [facility] | | | | | | [facility] - | | | | | | LABORATORY | | + + + + + + | pH, Urine | 5.0 | 5.0 - 8.0 | [facility] | | | | | | [facility] | | | | | | [facility] | | | | | | [facility] - | | | | | | LABORATORY | | + + + + + + | Specific | 1.006 | 1.001 - 1.030 | [facility] | | | [place] | | | [facility] | | | | | | MEDICAL | | | | | | CENTER - | | | | | | LABORATORY | | + + + + + + | Protein, | Negative | Negative | [facility] | | | Urine | | | [facility] | | | | | | [facility] | | | | | | C[facility] - | | | | | | LABORATORY | | + + + + + + | Blood, | Negative | Negative | [facility] | | | Urine | | | [facility] | | | | | | [facility] | | | | | | CENTER - | | | | | | LABORATORY | | + + + + + + | Glucose, | Negative | Negative | [facility] | | | Urine | | | [facility] | | | | | | [facility] | | | | | | C[facility] - | | | | | | LABORATORY | | + + + + + + | Ketones, | Negative | Negative | [facility] | | | Urine | | | [facility] | | | | | | [facility] | | | | | | CENTER - | | | | | | LABORATORY | | + + + + + + | Bilirubin, | Negative | Negative | [facility] | | | Urine | | | [facility] | | | | | | [facility]ICAL | | | | | | CENTER - | | | | | | LABORATORY | | + + + + + + | Nitrite, | Negative | Negative | [facility] | | | Urine | | | [facility] | | | | | | MEDICAL | | | | | | CENTER - | | | | | | LABORATORY | | + + + + + + | Leukocyte | Negative | Negative | [facility] | | | Esterase, | | | [facility] | | | Urine | | | MEDICAL | | | | | | CENTER - | | | | | | LABORATORY | | + + + + + + | Urobilinoge | Negative | 0.2 mg/dL, 1.0 | [facility] | | | n, Urine | | mg/dL, Negative | [facility] | | | | | | MEDICAL | | | | | | CENTER - | | | | | | LABORATORY | | + + + + + + | WBC UA | 0-2 | 0 - 2 /HPF | [facility] | | | | | | [facility] | | | | | | [facility] | | | | | | CENTER - | | | | | | LABORATORY | | + + + + + + | RBC UA | 0-2 | 0 - 2 /HPF | [facility] | | | | | | [facility] | | | | | | [facility] | | | | | | CENTER - | | | | | | LABORATORY | | + + + + + + | SQUAMOUS | 0-2 | 0 - 2 /LPF | [facility] | | | EPITHELIAL | | | [facility] | | | UA | | | MEDICAL | | | | | | CENTER - | | | | | | LABORATORY | | + + + + + + | BACTERIA UA | 1+ (A) | Negative /HPF | [facility] | | | | | | [facility] | | | | | | [facility]ICAL | | | | | | CENTER - | | | | | | LABORATORY | | + + + + + + + + | Specimen | + + | Urine | + + + + + | Narrative | Performed At | + + + | Urine culture not indicated. | [facility] | | | [facility] | | | [facility] | | | - LABORATORY | + + + + + + + + | Performing | Address | City/State/Zipcode | Phone Number | | Organization | | | | + + + + + | [facility] | [address] | [place] | [phone] | | [facility] | | [address] | | | - LABORATORY | | | | + + + + + Sedimentation Rate (11/07/2015 1:23 PM PDT) + +-------+ + + + | Component | Value | Ref Range | Performed | Pathologist | | | | | At | Signature | + +-------+ + + + | ESR | 28 | <30 mm/hr | [facility] | | | | | [...] [address] | [place] | [phone] | | [facility] | | [address] | | | - LABORATORY | | | | + + + + + Comprehensive Metabolic Panel (11/07/2015 1:23 PM PDT) + + + + + + | Component | Value | Ref Range | Performed | Pathologist | | | | | At | Signature | + + + + + + | Na | 136 | 136 - 149 | [facility] | | | | | mmol/L | [facility] | | | | | | MEDICAL | | | | | | CENTER - | | | | | | LABORATORY | | + + + + + + | K | 4.0 | 3.5 - 5.1 | [facility] | [...] + + + + | CO2 | 30 | 24 - 31 mmol/L | [facility] [...] + + + + | Glucose | 125 (H) | 70 - 109 mg/dL | [facility] [...] | 0.74 | 0.60 - 1.30 | [facility] | | | | | mg/dL | [facility] | | | | | | MEDICAL | | | | | | CENTER - | | | | | | LABORATORY | | + + + + + + | eGFR if not | >60Comment: GLOMERULAR | >=60 | [facility] | | | | FILTRATION | mL/min/1.73m2 | [facility] | | | [place] | RATE,ESTIMATED | | MEDICAL | | | | mL/min/1.71s9Sokf than | | CENTER - | | [...] + + + + | Calcium | 9.4 | 8.3 - 10.5 | [facility] | | | | | mg/dL | [facility] | | | | | | MEDICAL | | | | | | CENTER - | | | | | | LABORATORY | | + + + + + + | Albumin | 4.0 | 3.2 - 5.0 g/dL | [facility] | | | | | | [facility] | | | | | | MEDICAL | | | | | | CENTER - | | | | | | LABORATORY | | + + + + + + | Bilirubin | 0.5 | 0.1 - 1.5 mg/dL | [facility] | | | Total | | | [facility] | | | | | | MEDICAL | | | | | | CENTER - | | | | | | LABORATORY | | + + + + + + | Total | 7.8 | 6.0 - 7.8 g/dL | [facility] | | | Protein | | | [facility] | | | | | | MEDICAL | | | | | | CENTER - | | | | | | LABORATORY | | + + + + + + | AST | 19 | 10 - 42 U/L | [facility] | | | | | | [facility] | | | | | | MEDICAL | | | | | | CENTER - | | | | | | LABORATORY | | + + + + + + | ALT | 12 | 6 - 45 U/L | [facility] | | | | | | [facility] | | | | | | MEDICAL | | | | | | CENTER - | | | | | | LABORATORY | | + + + + + + | Alkaline | 70 | 40 - 110 U/L | [facility] | | | Phosphatase | | | [facility] | | | | | | MEDICAL | | | | | | CENTER - | | | | | | LABORATORY | | + + + + + + | Globulin | 3.8 | 2.1 - 3.8 g/dL | [facility] | | | | | | [facility] | | | | | | MEDICAL | | | | | | CENTER - | | | | | | LABORATORY | | + + + + + + | Albumin/Sarah | 1.1 | 0.8 - 2.0 | [facility] | | | bulin Ratio | | | [facility] | | | | | | MEDICAL | | | | | | CENTER - | | | | | | LABORATORY | | + + + + + + | BUN/Creatin | 13.5 | | [facility] | | | ine Ratio | | | [facility] | | [...] + + | [facility] | [address] | [place] | [phone] | | [facility] | | [address] | | | - LABORATORY | | | | + + + + + CBC with Differential (11/07/2015 1:23 PM PDT) + + + + + + | Component | Value | Ref Range | Performed | Pathologist | | | | | At | Signature | + + + + + + | WBC | 12.4 (H) | 4.0 - 11.0 K/uL | [facility] | | | | | | [facility] | | | | | | MEDICAL | | | | | | CENTER - | | | | | | LABORATORY | | + + + + + + | RBC | 4.32 | 3.70 - 5.20 | [facility] | [...] + + + + | Hematocrit | 43.8 | 34.0 - 47.0 % | [facility] | | | | | | [facility] | | | | | | MEDICAL | | | | | | CENTER - | | | | | | LABORATORY | | + + + + + + | MCV | 101.4 (H) | 83.0 - 101.0 fL | [...] + + + + | RDW-CV | 13.3 | <15.0 % | [facility] | | | | | | [facility] | | | | | | MEDICAL | | | | | | CENTER - | | | | | | LABORATORY | | + + + + + + | Platelet | 361 | 140 - 440 K/uL | [facility] | | | Count | | | [facility] | | | | | | MEDICAL | | | | | | CENTER - | | | | | | LABORATORY | | + + + + + + | MPV | 10.0 | fL | [facility] | | | | | | [facility] | | | | | | MEDICAL | | | | | | CENTER - | | | | | | LABORATORY | | + + + + + + | % | 79.0 | 45.0 - 82.0 % | [facility] | | | Neutrophils | | | [facility] | | | | | | MEDICAL | | | | | | CENTER - | | | | | | LABORATORY | | + + + + + + | % | 13.7 (L) | 20.0 - 45.0 % | [facility] | | | Lymphocytes | | | [facility] | | | | | | MEDICAL | | | | | | CENTER - | | | | | | LABORATORY | | + + + + + + | % Monocytes | 5.6 | 4.0 - 12.0 % | [facility] | | | | | | [facility] | | | | | | MEDICAL | | | | | | CENTER - | | | | | | LABORATORY | | + + + + + + | % | 1.3 | 0.0 - 5.0 % | [facility] | | | Eosinophils | | | [facility] | | | | | | MEDICAL | | | | | | CENTER - | | | | | | LABORATORY | | + + + + + + | % Basophils | 0.4 | 0.0 - 1.0 % | [facility] | | | | | | [facility] | | | | | | MEDICAL | | | | | | CENTER - | | | | | | LABORATORY | | + + + + + + | Absolute | 9.80 (H) | 1.80 - 8.50 | [facility] | | | Neutrophils | | K/uL | [facility] | | | | | | MEDICAL | | | | | | CENTER - | | | | | | LABORATORY | | + + + + + + | Absolute | 1.70 | 0.60 - 3.20 | [facility] | | | Lymphocytes | | K/uL | [facility] | | | | | | MEDICAL | | | | | | CENTER - | | | | | | LABORATORY | | + + + + + + | Absolute | 0.70 | 0.00 - 1.00 | [facility] | [...] + + | [facility] | [address] | [place] | [phone] | | [facility] | | [address] | | | - LABORATORY | | | | + + + + + documented in this encounter Visit Diagnoses + + | Diagnosis | + + | Hives of unknown origin | + + documented in this encounter"
--- OUTSIDE RECORDS SUMMARY | ~2019-05-18 | XMS | Encounter Summary ---
Demographics + + + | Address | [address] | | | [place] [address] | + + + | Home Phone | | + + + | Preferred Language | Unknown | + + + | Marital Status | | + + + | [employer] Affiliation | Unknown | + + + | Race | Unknown | + + + | Ethnic Group | Unknown | + + + Author + + + | Author | [facility] | | | and [place] | + + + | Organization | [facility] | | | and [...] | | | | | [place] [address] | | + + + + + | Hunter Jackson | ECON | [place] | | + + + + + | Wes Jackson | ECON | [place], [place] | | + + + + + | Oziel Jackson | ECON | [place], [place] | | + + + + + Care Team Providers + +------+ + | Care Laborer [employer] Name | Role | Phone | + +------+ + | Rodolfo Cruz MD | PCP | | + +------+ + Reason for Visit + + + | Reason | Comments | + + + | Blood Pressure Check | log from 06/23/15 till 07/07/15 | | (Screening) | | + + + Encounter Details +--------+ + + + + | Date | Type | Department | Care Team | Description | +--------+ + + + + | 07/10/ | Telephone | [facility] | [place] | Blood Pressure Check | | 2015 | | CARDIOLOGY [address] | JOSE ALBERTO [address] | (Screening) (log | | | | [place], | [place], | from 06/23/15 till | | | | [place] [address] | [place] [address] | 07/07/15) | | | | [phone] | [phone] | | | | | | | [...] [place] | | | | | | [address] | | | | | | | | +--------+---------+ + + + | 11/21/ | Office | Cardiology | Yesi, | | | 2020 | Visit | | JOSE ALBERTO Linder [address] | | | | | | [place], | | | | | | [place] [address] | | | | | | [phone] | | | | | | | | +--------+---------+ + + + documented as of this encounter Visit Diagnoses Not on filedocumented in this encounter"
--- OUTSIDE RECORDS SUMMARY | ~2019-05-18 | XMS | Encounter Summary ---
Demographics + + + | Address | [address] | | | [place] [address] | + + + | Home Phone | | + + + | Preferred Language | Unknown | + + + | Marital Status | | + + + | Temple Affiliation | Unknown | + + + | Race | Unknown | + + + | Ethnic Group | Unknown | + + + Author + + + | Author | [facility] | | | and [place] | + + + | Organization | [facility] | | | and [...] | | | | | [place] [address] | | + + + + + | Hunter Jackson | ECON | [place] | | + + + + + | Wes Jackson | ECON | [place], [place] | | + + + + + | Oziel Jackson | ECON | [place], [place] | | + + + + + Care Team Providers + +------+ + | Care Delivery Table Operator Name | Role | Phone | + +------+ + | Rodolfo Cruz MD | PCP | | + +------+ + Reason for Visit + + + | Reason | Comments | + + + | ED Follow-up | | + + + Encounter Details +--------+---------+ + + + | Date | Type | Department | Care Team | Description | +--------+---------+ + + + | 12/29/ | Office | [facility] | Rodolfo Cruz, | Hypothyroidism | | 2013 | Visit | [facility] | [address] | (Primary Dx); | | | | [address] | [place], [place] | Bronchitis; | | | | [place], [place] | [address] | Osteoarthritis; | | | | [address] | | Hypertension; TIA; | | | | [phone] | | Hyperlipidemia; | | | | | | Asthma; GERD | | | | | |GERD | +--------+---------+ + + + Social History [...] + + + | Blood Pressure | 138/70 | 12/29/2012 1:30 PM | | | | | PDT | | + + + + + | Pulse | 65 | 12/29/2012 1:30 PM | | | | | PDT | | + + + + + | Temperature | - | - | | + + + + + | Respiratory Rate | 16 | 12/29/2012 1:30 PM | | | | | PDT | | + + + + + | Oxygen Saturation | 96% | 12/29/2012 1:30 PM | | | | | PDT | | + + + + + | Inhaled Oxygen | - | - | | | Concentration | | | | + + + + + | Weight | 94.3 kg (208 lb) | 12/29/2012 1:30 PM | | | | | PDT | | + + + + + | Height | - | - | | + + + + + | Body Mass Index | 33.57 | 09/03/2012 2:45 PM | | | | | PDT | | + + + + + documented in this encounter Progress Notes Rodolfo Cruz MD - 12/29/2012 1:50 PM PDTFormatting of this note might be different f rom the original. Subjective: Patient ID: Soumya Jackson is a 77 y.o. female. HPI Recent Bronchitis, took Zpack and then Doxy , Cough near resolved, there is no cough, ther e is no SOB, She is doing well now. DJD , hands and hips still aches. Last injection did not help. She sees Dr Jensen for th is. She is taking aspirin and diclofenac. BPV, dizzyness with change in position on rare occasion, She did see Dr Davis for this. She has been to the urgent care and the ER for this. It is getting a little bit better. There is no ear pain. She went to [place]. HTN blood pressure slightly higher in recent times. No Chest pain, SOB, there is some ank le swelling ETC. Running in the 120-1400/60-70 range in , INTOLERANT TO ABE'S AND ARB 'S, She is compliant with her toprol and furosemide. fatigue is unchanged. She takes her blood pressure every day. TIA 2 year ago, no symtoms since. , but tingling and numbness in sensation does persist in upper and lower left arm and hand, 24 x 7, hand also feels cold, no other new symtoms, com plying with ASA dosing daily. left sided face tingling off and on continues, this again i s mostly unchanged. Hyperlipidemia, on Tricor, she has some muscle aches in her arms but she thinks it is from a previous bad massage. No weakness on the medication, compliant, now on Krill Oil. Asthma , occasionally wheezy, was prescribed an ventolin and this has helped, no SOB or w heezing at this point. GERD, She takes prilosec daily, she has no heartburn with the medication. There are no b loody or black stools, She understand the risks of the medication and she wishes to take th e medication. She feels that the benefit outweighs the risk. 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 - 1967 Osteoporosis MGUS Chronic obstructive pulmonary disease Mononucleosis 2 miscarriages Asthma in Injuries: broke bone left foot 3 years ago from fall, missed a step. Procedures/Imaging: CT Head without contrast: 05/07/10 - No change in appearance of the head CT; MRI recommended if patient able. CT Head without contrast: 05/05/10 - Findings consistent with chronic small vessel ischemic disease; No acute changes id entified. Multiple head CTs in past Colonoscopy No Diverticulosis - 05/2002 Past Surgical History: Reviewed history from 09/25/2011 and no changes required: Parathyroidectomy - 05/2004 Colonoscopy No Diverticulosis - 05/2002 Removal Lower Left Nodules - 2004 Broken Outer Bone Left Foot - 2004 Tonsillectomy and adenoidectomy - 1955 Family History: Reviewed history from 06/05/2010 and no changes required: Mother: , cancer, age 83 Gout, Breast Cancer at 75, Hypertension Maternal grandmother: Stroke Father: , cancer, age 70 Prostate Cancer, stroke from female hormones for his cancer Paternal Grandmother: Stroke age 50's Paternal Grandfather: Suicide Sister: Brain Cancer at 59, Colon cancer - has ileostomy, Hypertension Half-sister: Sleep apnea, migraine, thyroid (in 2 half-sisters) Maternal uncle: Heart Problems Son: NonHodgkin's lymphoma Negative for the miscarriages or the rest. 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 HEENT: Neg ear pain, No nosebleeds,no rhinorrhea,no trouble swallowing and no sinus pressure. Eyes: Neg for pain and no visual disturbance. Respiratory: Neg for cough, no chest tightness, no shortness of breath no wheezing. Cardiovascular: Neg for chest pain, no palpitations and no leg swelling. Gastrointestinal: Neg for nausea,no vomiting,no diarrhea,no constipation no abdominal distention. No Belly pain, no black and no bloody stools, no excessive gas Genitourinary: Negative for urgency, no frequency, no decreased urine volume no difficulty urinating. No Bloody urine Musculoskeletal: Negor myalgias, no back pain, no joint swelling and No arth ralgias. No joint pain Skin: Neg for color change,no rash and No wounds, no Strange moles Neurological: Neg for dizziness, no Weakness,no light-headedness, no numbness and no headaches. Hematological: Neg for adenopathy. Does not bruise/bleed easily. Psychiatric/Behavioral: Neg for suicidal ideas,no confusion and no agitation. no Depression, no anxiety,no sleep problems Objective: Physical Exam Heent, WNL, No carotid bruit Chest CTAB Heart RR&R /s M Abd S,NT,ND,BS+ Ext, no CCor E Neuro Non-focal Lymph, no cervical, axillary, inguinal adenopathy Musculoskeletal, no gross deformity or loss or range of motion Skin, no gross lesions Assessment: 1. Hypothyroidism levothyroxine (SYNTHROID) 125 mcg tablet 2. Bronchitis 3. Osteoarthritis 4. Hypertension 5. TIA 6. Hyperlipidemia 7. Asthma 8. GERD Plan: She looks and feels fine. Lungs are clear today. RTC 3 months with labs prior. documented in this encounter Plan of Treatment +--------+---------+ + + + | Date | Type | Specialty | Care Team | Description | +--------+---------+ + + + | 06/02/ | Office | Orthopedic Surgery | Ulysses Jensen, | | | 2019 | Visit | | MD [address] | | | | | | [place] | | | | | | [id number] | | | | | | | | +--------+---------+ + + + | 11/21/ | Office | Cardiology | Yesi, | | | 2019 | Visit | | JOSE ALBERTO Linder [address] | | | | | | [place] | | | | | | [place] [address] | | | | | | [phone] | | | | | | | | +--------+---------+ + + + documented as of this encounter Visit Diagnoses + + | Diagnosis | + + | Hypothyroidism - Primary Unspecified hypothyroidism | + + | Bronchitis Bronchitis, not specified as acute or chronic | + + | Osteoarthritis Osteoarthrosis, unspecified whether generalized or localized, | | unspecified site | + + | Hypertension Unspecified essential hypertension | + + | TIA Unspecified transient cerebral ischemia | + + | Hyperlipidemia Other and unspecified hyperlipidemia | + + | Asthma Unspecified asthma | + + | GERD Esophageal reflux | + + documented in this encounter"
--- OUTSIDE RECORDS SUMMARY | ~2019-05-18 | XMS | Encounter Summary ---
Demographics + + + | Address | [address] | | | [place] [address] | + + + | Home Phone | | + + + | Preferred Language | Unknown | + + + | Marital Status | | + + + | Muslim Affiliation | Unknown | + + + | Race | Unknown | + + + | Ethnic Group | Unknown | + + + Author + + + | Author | [facility] | | | and [place] | + + + | Organization | [facility] | | | and [...] | | | | | [place] [address] | | + + + + + | Hunter Jackson | ECON | [place] | | + + + + + | Wes Jackson | ECON | [place], [place] | | + + + + + | Oziel Jackson | ECON | [place], [place] | | + + + + + Care Team Providers + +------+ + | Care Forest Products Gatherer Name | Role | Phone | + +------+ + | Rodolfo Cruz MD | PCP | | + +------+ + Reason for Visit + + + | Reason | Comments | + + + | Follow-up | FU Right Shoulder pain wants injection last inj 08/05/13 / also | | | wants right hand thumb injection | + + + Encounter Details +--------+---------+ + + + | Date | Type | Department | Care Team | Description | +--------+---------+ + + + | 11/08/ | Office | [facility] | Ulysses Jensen, | Rotator cuff | | 2013 | Visit | ORTHOPEDIC SURGERY | MD [address] [facility] | syndrome, right | | | | [address] | [place] | (Primary Dx); [facility] | | | | [place] | [address] | arthritis | | | | [address] | | | | | | [phone] | | | +--------+---------+ + + + [...] Temperature | 36.7 C (98.1 F) | 11/08/2013 4:21 PM | | | | | PDT [...] Weight | 80.7 kg (178 lb) | 11/08/2013 4:21 PM | | | | | PDT | | + + + + + | Height | 167.6 cm (5' 6") | 11/08/2013 4:21 PM | | | | | PDT | | + + + + + | Body Mass Index | 28.73 | 11/08/2013 4:21 PM | | | | | PDT | | + + + + + documented in this encounter Progress Notes Ulysses Jensen MD - 11/08/2013 5:26 PM PDTPatient returns today for a right shoulder inj ection in the first CMC joint injection on the right On exam today her right shoulder has a negative drop arm sign and has good resisted abducti on strength in the scapular plane Her right first CMC joint is tender with obvious deformity from [id number] arthrosis Under sterile conditions I injected her right shoulder subacromial space with Kenalog 40 mg and 3 cc of Marcaine 1/4% Under sterile conditions I injected her first CMC joint right hand with half a cc of [place] one and half a cc of Marcaine 1/4% documented in this encounter Plan of Treatment +--------+---------+ + + + | Date | Type | Specialty | Care Team | Description | +--------+---------+ + + + | 06/02/ | Office | Orthopedic Surgery | Ulysses Jensen, | | | 2019 | Visit | | MD Danny FLANNERY | | | | | | [place] | | | | | | [address] | | | | | | | | +--------+---------+ + + + | 11/21/ | Office | Cardiology | Yesi, | | | 2019 | Visit | | JOSE ALBERTO Linder [address] | | | | | | [place], | | | | | | [place] [address] | | | | | | [phone] | | | | | | | | +--------+---------+ + + + documented as of this encounter Visit Diagnoses + + | Diagnosis | + + | Rotator cuff syndrome, right - Primary | + + | CMC arthritis Unspecified arthropathy, hand | + + documented in this encounter
--- OUTSIDE RECORDS SUMMARY | ~2019-05-18 | XMS | Encounter Summary ---
Demographics + + + | Address | [address] | | | [place] [address] | + + + | Home Phone | | + + + | Preferred Language | Unknown | + + + | Marital Status | | + + + | Taoism Affiliation | Unknown | + + + | Race | Unknown | + + + | Ethnic Group | Unknown | + + + Author + + + | Author | [facility] | | | and [place] | + + + | Organization | [facility] [...] | | | | | [place] [address] | | + + + + + | Hunter Jackson | ECON | [place], [place] | | + + + + + | Wes Jackson | ECON | [place], [place] | | + + + + + | Oziel Jackson | ECON | [place], [place] | | + + + + + Care Team Providers + +------+ + | Care Nuclear Weapons Specialist Name | Role | Phone | + +------+ + | Provider Not, In System | PCP | Unavailable | + +------+ + Encounter Details +--------+ + + + + | Date | Type | Department | Care Team | Description | +--------+ + + + + | 07/02/ | Abstract | [facility] | Yes[place], | | | 2016 | | CARDIOLOGY [address] | JOSE AL[address]ERTO [address] | | | | | [place], | [place], | | | | | [place] [address] | [place] [address] | | | | | [phone] | [phone] | | | | | | | [...] | | | | | | [place] [address] | | | | | | [phone] | | | | | | | | +--------+---------+ + + + documented as of this encounter Procedures + +--------+ + + + | Procedure Name | Priori | Date/Time | Associated Diagnosis | Comments | | | ty | | | | + +--------+ + + + | EXTERNAL LAB: PTT | Routin | 05/08/2016 | | Results for this | | | e | 12:10 PM | | procedure are in the | | | | PST | | results section. | + +--------+ + + + | EXTERNAL LAB: BUN | Routin | 05/08/2016 | | Results for this | | | e | 12:10 PM | | procedure are in the | | | | PST | | results section. | + +--------+ + + + | EXTERNAL LAB: | Routin | 05/08/2016 | | Results for this | | GLUCOSE | e | 12:10 PM | | procedure are in the | | | | PST | | results section. | + +--------+ + + + | EXTERNAL LAB: | Routin | 05/08/2016 | | Results for this | | TROPONIN I | e | 12:10 PM | | procedure are in the | | | | PST | | results section. | + +--------+ + + + | EXTERNAL LAB: ALT | Routin | 05/08/2016 | | Results for this | | | e | 12:10 PM | | procedure are in the | | | | PST | | results section. | + +--------+ + + + | EXTERNAL LAB: AST | Routin | 05/08/2016 | | Results for this | | | e | 12:10 PM | | procedure are in the | | | | PST | | results section. | + +--------+ + + + | EXTERNAL LAB: | Routin | 05/08/2016 | | Results for this | | ALKALINE PHOSPHATASE | e | 12:10 PM | | procedure are in the | | | | PST | | results section. | + +--------+ + + + | EXTERNAL LAB: | Routin | 05/08/2016 | | Results for this | | BILIRUBIN, TOTAL | e | 12:10 PM | | procedure are in the | | | | PST | | results section. | + +--------+ + + + | EXTERNAL LAB: | Routin | 05/08/2016 | | Results for this | | ALBUMIN | e | 12:10 PM | | procedure are in the | | | | PST | | results section. | + +--------+ + + + | EXTERNAL LAB: | Routin | 05/08/2016 | | Results for this | | PROTEIN, TOTAL | e | 12:10 PM | | procedure are in the | | | | PST | | results section. | + +--------+ + + + | EXTERNAL LAB: | Routin | 05/08/2016 | | Results for this | | CALCIUM | e | 12:10 PM | | procedure are in the | | | | PST | | results section. | + +--------+ + + + | EXTERNAL LAB: CARBON | Routin | 05/08/2016 | | Results for this | | DIOXIDE | e | 12:10 PM | | procedure are in the | | | | PST | | results section. | + +--------+ + + + | EXTERNAL LAB: | Routin | 05/08/2016 | | Results for this | | CHLORIDE | e | 12:10 PM | | procedure are in the | | | | PST | | results section. | + +--------+ + + + | EXTERNAL LAB: | Routin | 05/08/2016 | | Results for this | | POTASSIUM | e | 12:10 PM | | procedure are in the | | | | PST | | results section. | + +--------+ + + + | EXTERNAL LAB: SODIUM | Routin | 05/08/2016 | | Results for this | | | e | 12:10 PM | | procedure are in the | | | | PST | | results section. | + +--------+ + + + | EXTERNAL LAB: CBC | Routin | 05/08/2016 | | Results for this | | | e | 12:10 PM | | procedure are in the | | | | PST | | results section. | + +--------+ + + + | EXTERNAL LAB: | Routin | 05/08/2016 | | Results for this | | PROTIME INR | e | 12:10 PM | | procedure are in the | | | | PST | | results section. | + +--------+ + + + | EXTERNAL LAB: EGFR | Routin | 05/08/2016 | | Results for this | | | e | 12:10 PM | | procedure are in the | | | | PST | | results section. | + +--------+ + + + | EXTERNAL LAB: | Routin | 05/08/2016 | | Results for this | | CREATININE | e | 12:10 PM | | procedure are in the | | | | PST | | results section. | + +--------+ + + + | CBC WITH | Routin | 05/08/2016 | | Results for this | | DIFFERENTIAL | e | 11:15 AM | | procedure are in the | | | | PST | | results section. | + +--------+ + + + | COMPREHENSIVE | Routin | 05/08/2016 | | Results for this | | METABOLIC PANEL | e | 11:15 AM | | procedure are in the | | | | PST | | results section. | + +--------+ + + + | EXTERNAL LAB: TSH | Routin | 04/24/2016 | | Results for this | | | e | 4:01 PM | | procedure are in the | | | | PST | | results section. | + +--------+ + + + | TSH+T3+T4 (NON ORD) | Routin | 04/24/2016 | | Results for this | | | e | 11:06 AM | | procedure are in the | | | | PST | | results section. | + +--------+ + + + documented in this encounter Results External Lab: PTT (05/08/2016 12:10 PM PST) + +-------+ + + + | Component | Value | Ref Range | Performed | Pathologist | | | | | At | Signature | + +-------+ + + + | PTT, | 30.9 | 22.9 - 41.3 | EXTERNAL | | | External | | | LAB | | + +-------+ + + + + + | Resulting Agency Comment | + + | [facility] | + + + +---------+ + + | Performing | Address | City/State/Zipcode | Phone Number | | Organization | | | | + +---------+ + + | EXTERNAL LAB | | | | + +---------+ + + External Lab: AVERY (05/08/2016 12:10 PM PST) + +-------+ + + + | Component | Value | Ref Range | Performed | Pathologist | | | | | At | Signature | + +-------+ + + + | BUN, | 10 | 6 - 23 | EXTERNAL | | | External | | | LAB | | + +-------+ + + + + + | Resulting Agency Comment | + + | [facility] | + + + +---------+ + + | Performing | Address | City/State/Zipcode | Phone Number | | Organization | | | | + +---------+ + + | EXTERNAL LAB | | | | + +---------+ + + External Lab: Glucose (05/08/2016 12:10 PM PST) + +---------+ + + + | Component | Value | Ref Range | Performed | Pathologist | | | | | At | Signature | + +---------+ + + + | Glucose, | 104 (A) | 70 - 100 | EXTERNAL | | | External | | | LAB | | + +---------+ + + + + + | Resulting Agency Comment | + + | [facility] | + + + +---------+ + + | Performing | Address | City/State/Zipcode | Phone Number | | Organization | | | | + +---------+ + + | EXTERNAL LAB | | | | + +---------+ + + External Lab: Troponin I (05/08/2016 12:10 PM PST) + +--------+ + + + | Component | Value | Ref Range | Performed | Pathologist | | | | | At | Signature | + +--------+ + + + | Troponin I, | <0.010 | | EXTERNAL | | | External | | | LAB | | + +--------+ + + + + + | Resulting Agency Comment | + + | [facility] | + + + +---------+ + + | Performing | Address | City/State/Zipcode | Phone Number | | Organization | | | | + +---------+ + + | EXTERNAL LAB | | | | + +---------+ + + External Lab: ALT (05/08/2016 12:10 PM PST) + +-------+ + + + | Component | Value | Ref Range | Performed | Pathologist | | | | | At | Signature | + +-------+ + + + | ALT, | 12 | 7 - 52 | EXTERNAL | | | External | | | LAB | | + +-------+ + + + + + | Resulting Agency Comment | + + | [facility] | + + + +---------+ + + | Performing | Address | City/State/Zipcode | Phone Number | | Organization | | | | + +---------+ + + | EXTERNAL LAB | | | | + +---------+ + + External Lab: LISA (05/08/2016 12:10 PM PST) + +-------+ + + + | Component | Value | Ref Range | Performed | Pathologist | | | | | At | Signature | + +-------+ + + + | AST, | 17 | 13 - 39 | EXTERNAL | | | External | | | LAB | | + +-------+ + + + + + | Resulting Agency Comment | + + | [facility] | + + + +---------+ + + | Performing | Address | City/State/Zipcode | Phone Number | | Organization | | | | + +---------+ + + | EXTERNAL LAB | | | | + +---------+ + + External Lab: Alkaline Phosphatase (05/08/2016 12:10 PM PST) + +-------+ + + + | Component | Value | Ref Range | Performed | Pathologist | | | | | At | Signature | + +-------+ + + + | ALP, | 60 | 30 - 128 | EXTERNAL | | | External | | | LAB | | + +-------+ + + + + + | Resulting Agency Comment | + + | [facility] | + + + +---------+ + + | Performing | Address | City/State/Zipcode | Phone Number | | Organization | | | | + +---------+ + + | EXTERNAL LAB | | | | + +---------+ + + External Lab: Bilirubin, Total (05/08/2016 12:10 PM PST) + +-------+ + + + | Component | Value | Ref Range | Performed | Pathologist | | | | | At | Signature | + +-------+ + + + | Bilirubin, | 0.5 | 0 - 1.2 | EXTERNAL | | | Total, | | | LAB | | | External | | | | | + +-------+ + + + + + | Resulting Agency Comment | + + | [facility] | + + + +---------+ + + | Performing | Address | City/State/Zipcode | Phone Number | | Organization | | | | + +---------+ + + | EXTERNAL LAB | | | | + +---------+ + + External Lab: Albumin (05/08/2016 12:10 PM PST) + +-------+ + + + | Component | Value | Ref Range | Performed | Pathologist | | | | | At | Signature | + +-------+ + + + | Albumin, | 4.6 | 3.5 - 5 | EXTERNAL | | | External | | | LAB | | + +-------+ + + + + + | Resulting Agency Comment | + + | [facility] | + + + +---------+ + + | Performing | Address | City/State/Zipcode | Phone Number | | Organization | | | | + +---------+ + + | EXTERNAL LAB | | | | + +---------+ + + External Lab: Protein, Total (05/08/2016 12:10 PM PST) + +---------+ + + + | Component | Value | Ref Range | Performed | Pathologist | | | | | At | Signature | + +---------+ + + + | Protein, | 8.6 (A) | 6 - 8 | EXTERNAL | | | Total, | | | LAB | | | External | | | | | + +---------+ + + + + + | Resulting Agency Comment | + + | [facility] | + + + +---------+ + + | Performing | Address | City/State/Zipcode | Phone Number | | Organization | | | | + +---------+ + + | EXTERNAL LAB | | | | + +---------+ + + External Lab: Calcium (05/08/2016 12:10 PM PST) + +-------+ + + + | Component | Value | Ref Range | Performed | Pathologist | | | | | At | Signature | + +-------+ + + + | Calcium, | 9.9 | 8.4 - 10.2 | EXTERNAL | | | External | | | LAB | | + +-------+ + + + + + | Resulting Agency Comment | + + | [facility] | + + + +---------+ + + | Performing | Address | City/State/Zipcode | Phone Number | | Organization | | | | + +---------+ + + | EXTERNAL LAB | | | | + +---------+ + + External Lab: Carbon Dioxide (05/08/2016 12:10 PM PST) + +-------+ + + + | Component | Value | Ref Range | Performed | Pathologist | | | | | At | Signature | + +-------+ + + + | Carbon | 28 | 19 - 31 | EXTERNAL | | | Dioxide, | | | LAB | | | External | | | | | + +-------+ + + + + + | Resulting Agency Comment | + + | [facility] | + + + +---------+ + + | Performing | Address | City/State/Zipcode | Phone Number | | Organization | | | | + +---------+ + + | EXTERNAL LAB | | | | + +---------+ + + External Lab: Chloride (05/08/2016 12:10 PM PST) + +-------+ + + + | Component | Value | Ref Range | Performed | Pathologist | | | | | At | Signature | + +-------+ + + + | Chloride, | 98 | 95 - 112 | EXTERNAL | | | External | | | LAB | | + +-------+ + + + + + | Resulting Agency Comment | + + | [facility] | + + + +---------+ + + | Performing | Address | City/State/Zipcode | Phone Number | | Organization | | | | + +---------+ + + | EXTERNAL LAB | | | | + +---------+ + + External Lab: Potassium (05/08/2016 12:10 PM PST) + +-------+ + + + | Component | Value | Ref Range | Performed | Pathologist | | | | | At | Signature | + +-------+ + + + | Potassium, | 3.9 | 3.5 - 5.1 | EXTERNAL | | | External | | | LAB | | + +-------+ + + + + + | Resulting Agency Comment | + + | [facility] | + + + +---------+ + + | Performing | Address | City/State/Zipcode | Phone Number | | Organization | | | | + +---------+ + + | EXTERNAL LAB | | | | + +---------+ + + External Lab: Sodium (05/08/2016 12:10 PM PST) + +-------+ + + + | Component | Value | Ref Range | Performed | Pathologist | | | | | At | Signature | + +-------+ + + + | Sodium, | 134 | 132 - 143 | EXTERNAL | | | External | | | LAB | | + +-------+ + + + + + | Resulting Agency Comment | + + | [facility] | + + + +---------+ + + | Performing | Address | City/State/Zipcode | Phone Number | | Organization | | | | + +---------+ + + | EXTERNAL LAB | | | | + +---------+ + + External Lab: CBC (05/08/2016 12:10 PM PST) + + + + + + | Component | Value | Ref Range | Performed | Pathologist | | | | | At | Signature | + + + + + + | WBC, | 10.2 | 4.5 - 11 | EXTERNAL | | | External | | | LAB | | + + + + + + | HGB, | 15.5 | 12 - 16 | EXTERNAL | | | External | | | LAB | | + + + + + + | HCT, | 47.2 (A) | 35 - 45 | EXTERNAL | | | External | | | LAB | | + + + + + + | PLT, | 381 | 140 - 440 | EXTERNAL | | | External | | | LAB | | + + + + + + | Neutrophils | 83.2 (A) | 39 - 80 | EXTERNAL | | | %, | | | LAB | | | External | | | | | + + + + + + | Lymphocytes | 12.1 (A) | 24 - 44 | EXTERNAL | | | %, | | | LAB | | | External | | | | | + + + + + + | Monocytes | 3.9 | 0 - 12 | EXTERNAL | | | %, External | | | LAB | | + + + + + + | Eosinophils | 0.8 | 0 - 6 | EXTERNAL | | | %, | | | LAB | | | External | | | | | + + + + + + | RBC, | 4.59 | 3.8 - 5.1 | EXTERNAL | | | External | | | LAB | | + + + + + + | MCV, | 101 (A) | 81 - 99 | EXTERNAL | | | External | | | LAB | | + + + + + + | RDW, | 12.5 | 10.5 - 15 | EXTERNAL | | | External | | | LAB | | + + + + + + + + | Resulting Agency Comment | + + | [facility] | + + + +---------+ + + | Performing | Address | City/State/Zipcode | Phone Number | | Organization | | | | + +---------+ + + | EXTERNAL LAB | | | | + +---------+ + + External Lab: Charity ALMAZAN (05/08/2016 12:10 PM PST) + +-------+ + + + | Component | Value | Ref Range | Performed | Pathologist | | | | | At | Signature | + +-------+ + + + | INR, | 0.9 | 0.8 - 3.5 | EXTERNAL | | | External | | | LAB | | + +-------+ + + + | PT, | 12 | 11.9 - 15.1 | EXTERNAL | | | External | | | LAB | | + +-------+ + + + + + | Specimen | + + | Blood specimen | | (specimen) | + + + + | Resulting Agency Comment | + + | [facility] | + + + +---------+ + + | Performing | Address | City/State/Zipcode | Phone Number | | Organization | | | | + +---------+ + + | EXTERNAL LAB | | | | + +---------+ + + External Lab: eGFR (05/08/2016 12:10 PM PST) + +-------+ + + + | Component | Value | Ref Range | Performed | Pathologist | | | | | At | Signature | + +-------+ + + + | eGFR, | 81 | 60 - 999 | EXTERNAL | | | External | | | LAB | | + +-------+ + + + + + | Specimen | + + | Blood specimen | | (specimen) | + + + + | Resulting Agency Comment | + + | [facility] | + + + +---------+ + + | Performing | Address | City/State/Zipcode | Phone Number | | Organization | | | | + +---------+ + + | EXTERNAL LAB | | | | + +---------+ + + External Lab: Creatinine (05/08/2016 12:10 PM PST) + +-------+ + + + | Component | Value | Ref Range | Performed | Pathologist | | | | | At | Signature | + +-------+ + + + | Creatinine, | 0.70 | 0.7 - 1.18 | EXTERNAL | | | External | | | LAB | | + +-------+ + + + + + | Specimen | + + | Blood specimen | | (specimen) | + + + + | Resulting Agency Comment | + + | [facility] | + + + +---------+ + + | Performing | Address | City/State/Zipcode | Phone Number | | Organization | | | | + +---------+ + + | EXTERNAL LAB | | | | + +---------+ + + CBC with Differential (05/08/2016 11:15 AM PST) + +-------+ + + + | Component | Value | Ref Range | Performed | Pathologist | | | | | At | Signature | + +-------+ + + + | MCHC | 33.0 | 30.0 - 36.0 % | | | + +-------+ + + + | MCH | 33.0 | 26.0 - 33.0 pg | | | + +-------+ + + + | % Basophils | 0.0 | 0.0 - 2.0 % | | | + +-------+ + + + + + | Specimen | + + | Blood specimen | | (specimen) | + + Comprehensive Metabolic Panel (05/08/2016 11:15 AM PST) + +---------+ + + + | Component | Value | Ref Range | Performed | Pathologist | | | | | At | Signature | + +---------+ + + + | Anion Gap | 12 | 7 - 21 mmol/L | | | + +---------+ + + + | BUN/Creatin | 14.3 | 5.0 - 28.6 | | | | ine Ratio | | | | | + +---------+ + + + | Globulin | 4.0 (A) | 1.8 - 3.5 | | | + +---------+ + + + | Albumin/Sarah | 1.2 | 1.1 - 2.4 | | | | bulin Ratio | | | | | + +---------+ + + + + + | Specimen | + + | Blood specimen | | (specimen) | + + External Lab: TSH (04/24/2016 4:01 PM PST) + + + + + + | Component | Value | Ref Range | Performed | Pathologist | | | | | At | Signature | + + + + + + | TSH, | 1.29Comment: Gen | 0.27 - 4.2 | EXTERNAL | | | External | | | LAB | | + + + + + + + + | Specimen | + + | Blood specimen | | (specimen) | + + + + | Resulting Agency Comment | + + | [facility] | + + + +---------+ + + | Performing | Address | City/State/Zipcode | Phone Number | | Organization | | | | + +---------+ + + | EXTERNAL LAB | | | | + +---------+ + + TSH+T3+T4 (04/24/2016 11:06 AM PST) + +---------+ + + + | Component | Value | Ref Range | Performed | Pathologist | | | | | At | Signature | + +---------+ + + + | Free T4 | 1.9 (A) | 0.8 - 1.6 ng/dL | | | + +---------+ + + + + + | Specimen | + + | | + + documented in this encounter Visit Diagnoses Not on filedocumented in this encounter"
--- OUTSIDE RECORDS SUMMARY | ~2019-05-18 | XMS | Encounter Summary ---
Demographics + + + | Address | [address] | | | [place] [address] | + + + | Home Phone | | + + + | Preferred Language | Unknown | + + + | Marital Status | | + + + | Restoration Affiliation | Unknown | + + + | Race | Unknown | + + + | Ethnic Group | Unknown | + + + Author + + + | Author | [facility] | | | and [place] | + + + | Organization | [facility] | | | and [place] | + + + | Address | Unknown | + + + | Phone | Unavailable | + + + Support + + + + + | Name | Relationship | Address | Phone | + + + + + | Osmin Jackson | ECON | [address] | | | | | [place] [address] | | + + + + + | Hunter Jackson | ECON | [place] | | + + + + + | Wes Jackson | ECON | [place], [place] | | + + + + + | Oziel Jackson | ECON | [place], [place] | | + + + + + Care Team Providers + +------+ + | Care Floral Designer Name | Role | Phone | + [...] | +--------+ + + + + | 10/16/ | Hospital | [facility] | [place], | | | 2018 | Encounter | MED [facility] | JOSE ALBERTO [address] | | | | | MEDICINE [address] | [place], | | | | | [place], | [place] [address] | | | | | [place] [address] | [phone] | | | | | [phone] | | | | | | | Investment AdvisorRenetta | | +--------+ + + + + [...] + + + +---------+ + + | busPIRone (BUSPAR) | Take 5 mg by mouth | | 0 | 08/15/19 | | | 5 mg tablet | Daily. Can take | | | 18 | | | | twice a day if | | | | | | | needed | | | | | + + [...] + + + +---------+ + + | gabapentin | Take 300 mg by mouth | | 0 | | | | (NEURONTIN) 300 mg | once. | | | | | | capsule | | | | | | + + + +---------+ + + | GARLIC | Take 1,000 mg by | | 0 | | | | | mouth Daily. | | | | | + + + +---------+ + + | | Take 1 tablet by | | 0 | 08/15/19 | | | HYDROcodone-acetamin | mouth Daily. Takes | | | 18 | | | ophen (NORCO) | 1/2 in the AM and | | | | | | 7.5-325 mg per | 1/2 in the PM | | | | | | tablet [...] atorvaSTATin | Take 1 tablet by | 90 | 3 | 11/23/19 | | | (LIPITOR) 40 mg | mouth nightly. | tablet | | 17 | 8 | | tablet | | | | | | + + + +---------+ + + | furosemide (LASIX) | Take 20 mg by mouth | | 0 | | | | 40 mg tablet | Daily. | | | | 8 | + + + +---------+ [...] + + + +---------+ + + | lisinopril | Take 2 tablets by | 60 | 3 | 09/13/19 | | | (PRINIVIL, ZESTRIL) | mouth Daily. | tablet | | 18 | 8 | | 10 mg tablet | | | | | | + + + +---------+ + + | metoprolol | Take 1 tablet by | 180 | 3 | 11/23/19 | | | tartrate (LOPRESSOR) | mouth 2 times daily. | tablet | | 17 | 8 | | 25 mg tablet | | | | | | + + + +---------+ + + | sertraline | | | 0 | 09/30/19 | | | (ZOLOFT) 50 mg | | | | 18 | 8 | | tablet | | | | [...] [address]RE[address] | | | | | | [id number] | | | | | | | | +--------+---------+ + + + | 11/21/ | Office | Cardiology | [place], | | | 2019 | Visit | | JOSE AL[address]ERTO [address] | | | | | | [place], | | | | | | [place] [address] | | | | | | [phone] | | | | | | | | +--------+---------+ + + + documented as of this encounter Procedures + +--------+ + + + | Procedure Name | Priori | Date/Time | Associated Diagnosis | Comments | | | ty | | | | + +--------+ + + + | NM NUCLEAR STRESS | Routin | 10/16/2017 | Chest pain, | Results for this | | TEST (PHARMACOLOGIC | e | 2:55 PM | unspecified type | procedure are in the | | - VASODILATOR) | | PDT | | results section. | + +--------+ + + + documented in this encounter Visit Diagnoses Not on filedocumented in this encounter Administered Medications + +--------+ +--------+------+------+ | Medication Order | MAR | Action | Dose | Rate | Site | | | Action | Date | | | | + +--------+ +--------+------+------+ | regadenoson (LEXISCAN) | Given | 10/17/19 | 0.4 mg | | | | injection 0.4 mg 0.4 mg, | | 18 2:16 | | | | | Intravenous, ONCE PRN, protocol, | | PM PDT | | | | | Starting [facility] 10/16/17 at 1416, For | | | | | | | 1 dose, Give IV push over 10 | | | | | | | seconds, then follow immediately | | | | | | | with 5 mL saline flush., Nuclear | | | | | | | Medicine | | | | | | + +--------+ +--------+------+------+ +---+---+ | | | +---+---+ + +-------+ + +---+---+ | technetium [id number] sestamibi | Given | 10/17/19 | 30.8 | | | | (CARDIOLITE) injection 30.8 | | 18 2:16 | millicur | | | | millicurie 30.8 millicurie, | | PM PDT | ies | | | | Intravenous, ONCE PRN, Other, | | | | | | | Starting [facility] 10/16/17 at 1416, For | | | | | | | 1 dose, Nuclear Medicine | | | | | | + +-------+ + +---+---+ +---+---+ | | | +---+---+ documented in this encounter"
--- OUTSIDE RECORDS SUMMARY | ~2019-05-18 | XMS | Encounter Summary ---
Demographics + + + | Address | [address] | | | [place] [address] | + + + | Home Phone | | + + + | Preferred Language | Unknown | + + + | Marital Status | | + + + | Rastafarian Affiliation | Unknown | + + + | Race | Unknown | + + + | Ethnic Group | Unknown | + + + Author + + + | Author | [facility] | | | and [place] | + + + | Organization | [facility] | | | and [place] | + + + | Address | Unknown | + + + | Phone | Unavailable | + + + Support + + + + + | Name | Relationship | Address | Phone | + + + + + | Osmin Jackson | ECON | [address] | | | | | [place] [address] | | + + + + + | Hunter Jackson | ECON | [place] | | + + + + + | Wes Jackson | ECON | [place], [place] | | + + + + + | Oziel Jackson | ECON | [place], [place] | | + + + + + Care Team Providers + +------+ + | Care Hook And Eye Machine Operator Name | Role | Phone | + +------+ + | Kellie Gunderson | PCP | | + +------+ + Reason for Visit +---------+ + | Reason | Comments | +---------+ + | Consult | | +---------+ + Evaluate & Treat (Routine) +--------+--------+ + + + + | Status | Reason | Specialty | Diagnoses / | Referred By | Referred To | | | | | Procedures | Contact | Contact | +--------+--------+ + + + + | Closed | | Internal | Diagnoses | Gunderson, | Mau, | | | | Medicine - | Obstructive | FLORA Hopkins | Braulio Daniel | | | | Sleep | sleep apnea | [address] | | | | Medicine / | (adult) | JENNY, | Rolly Jaramillo | | | | Sleep | (pediatric) | [address] | | | | Medicine | Consult no | CHLOE, | [place] | | | | | [address] | [place] [address] | [address] Phone: | | | | | Procedures | Phone: | [phone] | | | | | NEW PATIENT | [phone] | Fax: | | | | | | Fax: | [phone] | | | | | | [phone] | | +--------+--------+ + + + + Encounter Details +--------+---------+ + + + | Date | Type | Department | Care Team | Description | +--------+---------+ + + + | 06/13/ | Office | [facility] | Braulio León | Psychophysiologic | | 2018 | Visit | SLEEP DISORDER [address] | [address] | insomnia | | | | [address] | [facility] | | | | | [place] [address] | [place] [address] | | | | | [phone] | [phone] | | | | | | | [...] + + + | Blood Pressure | 120/80 | 06/13/2017 10:01 AM | | | | | PST | | + + + + + | Pulse | 50 | 06/13/2017 10:01 AM | | | | | PST | | + + + + + | Temperature | - | - | | + + + + + | Respiratory Rate | 16 | 06/13/2017 10:01 AM | | | | | PST | | + + + + + | Oxygen Saturation | 94% | 06/13/2017 10:01 AM | | | | | PST | | + + + + + | Inhaled Oxygen | - | - | | | Concentration | | | | + + + + + | Weight | 81.6 kg (179 lb 14.3 | 06/13/2017 10:01 AM | | | | oz) | PST | | + + + + + | Height | 165.1 cm (5' 5") | 06/13/2017 10:01 AM | | | | | PST | | + + + + + | Body Mass Index | 29.94 | 06/13/2017 10:01 AM | | | | | PST | | + + + + + documented in this encounter Patient Instructions Patient Instructions Braulio León Jr., MD - 06/13/2017 10:00 AM PSTSLEEP SUGGESTIONS GREG Jackson 1) Awaken at nearly the same time ever day 7:30am. Don't sleep in. 2) Obtain as much bright light as possible during your desired waking hours. 3) Minimize or preferably eliminate caffeine (coffee, tea, energy drinks, soft drinks, etc. ). No more than two cups of tea or caffeine prior to noon. 4) Eliminate or minimize smoking and alcohol consumption, especially near bedtime. 5) Do not nap during the daytime; this will interfere with your night-time sleep. 6) Darken your environment an hour before bedtime. 7) Consider "unwinding" and "closing" your day about an hour before your anticipated bedtim e. 8) Go to bed only when you are sleepy and no earlier than 11:30pm 9) Use your bedroom only for sleeping. 10) Only sleep in your bedroom - do not sleep in other areas of your house. 11) Between bedtime and wake time the only things you are allowed to do is to sleep in your bedroom or to sit comfortably in another room, in the dark, doing nothing. Do not watch TV, work on the computer, send text messages, do housework, or problem solve between bedtime an d wake time. 12) If you find that you aren't asleep, get up out of bed (keep your environment dark with just low level light, so that you won't fall) and go to another room. Sit quietly in the xavi k until you are sleepy and then go back to bed. You may repeat this as many times as necessa ry. But you must awaken at the same time every day, regardless of how you slept that night. 13) If you continue to sleep poorly, consider going to bed a little later each night (but a waken at the same time every morning and don't nap) until you are sleeping through the major ity of the time between bed time and wake time. documented in this encounter Progress Notes Braulio León Jr., MD - 06/13/2017 10:00 AM PSTFormatting of this note might be differen t from the original. [facility] [place] [address] Ref: Kellie Gunderson PA CC: Chief Complaint Patient presents with Consult History of the Present Illness:This is a 81 year old female who is referred for sleep medic ine consultation by Kellie Gunderson because of insomnia unresponsive to Ambien, Lunesta, Melaton in, Trazodone, Rozeram, Amitriptyline.. Other significant medical issues include anxiety, as thma, chronic pain (back/neck), COPD, DJD, HBP, Hypothyroidism, osteoporosis, past history o f peptic ulcer disease. The patient's records ([facility] EMR and Mary Beth Gunderson's note of 05/01/20 17) are reviewed. The patient is interviewed and examined. Bedtime is about 9-9:30 and she reads until about 10pm. Rise time is typically about 8am. S he estimates a latency to sleep of 2-4 hours. Once asleep she awakens once at night urine an d 4-5am and she then tosses and turns and eventually dozes off and on until 8am (she doesn't use an alarm clock). She denies nights sweats. She denies nocturnal heartburn. Most morning s she awakens with a dry mouth and nasal/sinus congestion. She rarely has morning headaches. She dreams occasionally. She denies hypnagogic hallucinations. She isn't a sleep walker. No one has noted that she acts out dreams. She denies sleep paralysis. She denies restlessness in her legs at night. She doesn't think her legs kick at night but she doesn't have a bedpartner. She doesn't think that she snores. She doesn't awaken herself gasping for air or snorting. She had CABG 11/01/2016 (three vessel) - she had to sleep supine at that time and that's when the insomnia started. A year bed time was the same. She would fall asleep by 10pm and rise time was 7-8am and she could awaken to urinate 1-2 times at night but she could get back to sleep easily. Currently she is worried about "getting some sleep." Her first thought at bedtime is "I won franky if I'll get some sleep." During the two - three hours she lies in bed and thinks or sing s to herself. In the daytime she feels pretty good with the exception of chronic pain. She takes hydrocod one 7.5mg at night. She doesn't fall asleep driving. She denies cataplexy. She drinks about 4 cups of coffee prior to 2pm. Past Medical History: has a past medical history of Anxiety (May 2014); Arthritis; Asthma (); Cataract; Cervical radiculopathy (08/29/2016); Chronic low back pain (08/24/2014); Cl otting disorder ([facility]) (2013); COPD (chronic obstructive pulmonary disease) ([facility]); DDD (degen erative disc disease), cervical (07/25/2016); DDD (degenerative disc disease), lumbar ( 015); DJD (degenerative joint disease) (07/08/2013); Encounter for blood transfusion (November 28); Environmental allergies; Essential hypertension; Facet arthritis of lumbar region ([facility]) (08/24/2014); Foraminal stenosis of cervical region (07/25/2016); Fracture of foot (approx 29 01); GERD (04/17/2010); Heart murmur; Hep B complicating ; Hepatitis A (1967); Herpe s zoster (05/03/2011); High cholesterol; Hyperplastic colon polyp (03/28/10); Hypertension; Hypothyroidism; Lactose intolerance; Miscarriage; Mononucleosis; Osteoporosis; PUD (peptic u lcer disease) (11/08/2013); Pulmonary nodules (12/08/2013); Spondylosis, cervical (08/30/2010); Stenosis of cervical spine (07/25/2016); Stroke ([facility]) (Apr 2010); TIA (05/08/2010); Tinea co rporis (01/31/2015); UGIB (upper gastrointestinal bleed) (11/14/2013); Valvular heart disease ( 05/23/2010); and Vertigo (09/03/2012). has a past surgical history that includes Colonoscopy (05/2002; 03/28/10); Removal lower l eft nodules (2004); Foot fracture surgery (Left, 2004); Tonsillectomy and adenoidectomy (195 6); Upper gastrointestinal endoscopy (11/15/2013); Upper gastrointestinal endoscopy (11/04/2013 ); Hemorrhoid surgery (9057-9033); Thyroidectomy; Cardiac catheterization (N/A, 10/16/2016); a nd Coronary artery bypass graft (N/A, 11/01/2016). Allergies Allergen Reactions Iodinated Diagnostic Agents Hives Diclofenac Sodium Other (See Comments) Duodenal Ulcer October 2013 Alendronate Sodium Patient not remember Celecoxib Celebrex - Patient not remember Risedronate Sodium Actonel - Patient not remember Penicillins Diarrhea Caused "black diarrhea" when she had her 4th child. Yellow Dye Itching Current Outpatient Prescriptions Medication Sig Dispense Refill [...] 0 furosemide (LASIX) 40 mg tablet Take 40 mg by mouth Daily. gabapentin (NEURONTIN) 300 mg capsule Take 300 mg by mouth 3 times daily. GARLIC Take 1,000 mg by mouth Daily. Glucosamine-Chondroitin (COSAMIN DS PO) Take 2 tablets by mouth Daily. HYDROcodone-acetaminophen (NORCO) 5-325 mg per tablet Take 0.5-1 tablets by mouth every 4 hours as needed for Pain. 40 tablet 0 L-Lysine HCl 500 MG CAPS Take 500 [...] by mouth every morning (before breakfast ). vitamin B-12 (CYANOCOBALAMIN) 1000 MCG tablet Take 1,000 mcg by mouth Daily. No current facility-administered medications for this visit. Past Surgical History: Procedure Laterality Date CARDIAC CATHERIZATION N/A 10/16/2016 Procedure: CV LHC; Surgeon: Irina Simms MD; Location: [facility] CV LAB COLONOSCOPY 05/2002; 03/28/10 next due 03/2020 CORONARY ARTERY BYPASS GRAFT N/A 11/01/2016 Procedure: CABG X 4-5, EVH, AHMET; Surgeon: Christina Loo MD; Location: [facility] MAIN OR FOOT FRACTURE SURGERY Left 2005 HEMORRHOID SURGERY [id number] Removal lower left nodules 2004 THYROIDECTOMY TONSILLECTOMY AND ADENOIDECTOMY 1955 UPPER GASTROINTESTINAL ENDOSCOPY 11/15/2013 EGD * IP RM: 428 * ; Laterality: N/A; Surgeon: Lauri Garrison MD; Location: [facility] MEDICAL PROCEDURE UNIT UPPER GASTROINTESTINAL ENDOSCOPY 11/04/2013 EGD IP 449; Laterality: N/A; Surgeon: Samm Pandya MD; Location: [facility] MEDICAL P ROCEDURE UNIT Family Medical History: family history includes Arthritis (age of onset: 59) in her father; Brain cancer (age of onset: 59) in her sister; Breast cancer (age of onset: 75) in her moth er; Cancer in her brother, father, mother, sister, and son; Cancer (age of onset: 20) in her son; Colon cancer in her sister; Crohn's disease in her sister; Depression in her mother; G out in her mother; Heart disease in her maternal uncle; High blood pressure in her mother, s ister, and sister; Migraines in her sister; Prostate cancer in her father; Sleep Apnea in he r sister; Stroke in her father, maternal grandmother, and paternal grandmother; Thyroid dise ase in her sister. indicated that her mother is . She indicated that her father is . She indic ated that only one of her four sisters is alive. She indicated that the status of her brothe r is unknown. She indicated that the status of her maternal grandmother is unknown. She carmelo cated that the status of her paternal grandmother is unknown. She indicated that one of her three sons is . She indicated that the status of her maternal uncle is unknown. Social History: Social History Social History Marital status: Spouse name: N/A Number of children: 4 Years of education: N/A Social History Main Topics Smoking status: Former Smoker Packs/day: 3.00 Years: 21.00 Types: Cigarettes Start date: 05/12/1955 Quit date: 05/12/1976 Smokeless tobacco: Never Used Alcohol use No Drug use: No Sexual activity: Not Currently Other Topics Concern Not on file Social History Narrative Exercise: getting back to swimming, and Physical Therapy Caffeine:2-3 cups during the day Living situation:Alone Born in [facility] since 1965 Marital status: Children: 6, 5 living, 10 grandchildren 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 Eyes:Denies sudden loss of vision, diplopia, blurred vision. ENT: Denies vertigo, nasal or sinus congestion, bleeding gums or poor dental repair. Bila teral hearing aids. Card:Denies exertional substernal chest heaviness. Resp: Denies cough, wheezing, asthma, hemoptysis GI: Denies nausea, vomiting, abdominal pain, diarrhea, constipation, hematochezia. : Denies dysuria, pyuria, hematuria, frequency, incontinence MS: Significant back, neck, shoulder pain. Neuro: Denies seizures, loss of consciousness, syncope, concussions. Psych: Denies: depression, anxiety, panic, past history physical or sexual abuse, severe traumatic experiences Endocrine: Denies heat or cold intolerance Heme: Denies easy bruising or prolonged bleeding. No history of transfusions Allergic/Immunologic: Denies seasonal allergies PE: BP 120/80 | Pulse 50 | Resp 16 | Ht 1.651 m (5' 5") | Wt 81.6 kg (179 lb 14.3 oz) | SpO2 94% | BMI 29.94 kg/m Gen: healthy, alert and not in acute distress HEENT:Head: Normocephalic, no lesions, without obvious abnormality. Eye: Normal external eye, conjunctiva, lids cornea, RAYSHAWN. Nose: Normal external nose, mucus membranes and septum. Pharynx: Dental Hygiene adequate. Normal buccal mucosa. Mallampati 1-2. Neck / Thyroid: Supple, no masses, nodes, nodules or enlargement. Pulm: lungs clear to auscultation Card: regular rate and rhythm, S1, S2 normal, no murmur, click, rub or gallop GI: soft and normal bowel sounds : Not examined Rectal: Not Examined Ext: peripheral pulses normal, no pedal edema, no clubbing or cyanosis Skin:no rashes Neuro:Grossly normal Psych:age appropriate and casually dressedoriented to time, place and person, mood and aff ect are within normal limits, pt is a good historian; no memory problems were noted Heme: No cervical LN Questionnaires Review: The score of 1 on the [place] Sleepiness scale suggests minimal brian gnized excessive daytime sleepiness. The score of 22 on the Insomnia Severity Scale suggests that the patient has severe dissatisfaction with the quality of sleep. The score of 5 on th e Bruno Depression Inventory is consistent with minimal depression (no suicidal thoughts). Th e score of 4 on the Bruno Anxiety Inventory suggests minimal recognized anxiety. The SF36v2 s uggests moderately severe self assessed impairment in subscales body pain, general health, v itality; minimal to mild self assessed impairment in subscale physical function; no self ass essed impairment on subscales role physical, social function, role emotional, mental health. The patient scores over half of a standard deviation above the mean on the mental componen t scale. She scores approximately 1 standard deviation below the mean on the physical compo nent scale. Assessment: Psychophysiologic Insomnia: I think the patient has psychophysiologic insomnia. I think the precipitating event was probably her cardiac bypass surgery. I have discussed the principles of good sleep with her. I've also discussed some of the mechanisms by which the patient such as daytime, stimulus control, relaxation, and sleep consolidation (her sle ep restriction) can be very helpful in treating insomnia. I've given her some very specific suggestions which I've discussed in detail with her and I printed them out for her also. S he will try them. Obstructive sleep apnea: I do not think at the present time the polysomnography is ruba martinez. However if the above-mentioned suggestions are not horribly helpful or if she notices snoring then I think polysomnography will be required but the present time I'm going to defe r on this. Plan: SLEEP SUGGESTIONS FOR Soumya Jackson 1) Awaken at nearly the same time ever day 7:30am. Don't sleep in. 2) Obtain as much bright light as possible during your desired waking hours. 3) Minimize or preferably eliminate caffeine (coffee, tea, energy drinks, soft drinks, etc. ). No more than two cups of tea or caffeine prior to noon. 4) Eliminate or minimize smoking and alcohol consumption, especially near bedtime. 5) Do not nap during the daytime; this will interfere with your night-time sleep. 6) Darken your environment an hour before bedtime. 7) Consider "unwinding" and "closing" your day about an hour before your anticipated bedtim e. 8) Go to bed only when you are sleepy and no earlier than 11:30pm 9) Use your bedroom only for sleeping. 10) Only sleep in your bedroom - do not sleep in other areas of your house. 11) Between bedtime and wake time the only things you are allowed to do is to sleep in your bedroom or to sit comfortably in another room, in the dark, doing nothing. Do not watch TV, work on the computer, send text messages, do housework, or problem solve between bedtime an d wake time. 12) If you find that you aren't asleep, get up out of bed (keep your environment dark with just low level light, so that you won't fall) and go to another room. Sit quietly in the xavi k until you are sleepy and then go back to bed. You may repeat this as many times as necessa ry. But you must awaken at the same time every day, regardless of how you slept that night. 13) If you continue to sleep poorly, consider going to bed a little later each night (but a waken at the same time every morning and don't nap) until you are sleeping through the major ity of the time between bed time and wake time. Patient Active Problem List Diagnosis Hypothyroidism VAGINITIS, [...] cervical Cervical radiculopathy Coronary artery disease involving [place] coronary artery of [place] heart with unstable angina pectoris Stress hyperglycemia Psychophysiologic insomnia Today, 60 minutes was spent face to face with the patient; the majority of time was spent c ounseling regarding sleep. imon, Braulio Danile Jr., MD - 06/13/2017 10:00 AM PSTFormatting of this note might be different from the origin al. 06/13/17 0900 Bruno Depression Inventory-II Depression Score 5 - Minimal depression Insomnia Severity Index Insomnia Severity Index 22 [place] Sleepiness Scale Sitting and reading 0 Watching TV 0 Sitting, inactive in a public place (e.g. a theatre or a meeting) 0 As a passenger in a car for an hour without a break 0 Lying down to rest in the afternoon when circumstances permit 1 Sitting and talking to someone 0 Sitting quietly after a lunch without alcohol 0 In a car, while stopped for a few minutes in traffic 0 Total score 1 SF-36v2 Score PF 46.06 RP 54.91 BP 34.58 GH 37.97 VT 37.74 SF 57.34 RE 52.69 MH 58.72 PCS 39.31 MCS 56.48 documented in th is encounter Plan of [...] | | | | | | [place] [id number] | | | | | | [phone] | | | | | | | | +--------+---------+ + + + documented as of this encounter Visit Diagnoses + + | Diagnosis | + + | Psychophysiologic insomnia Persistent disorder of initiating or maintaining sleep | + + documented in this encounter
--- OUTSIDE RECORDS SUMMARY | ~2019-05-18 | XMS | Encounter Summary ---
Demographics + + + | Address | [address] | | | [place] [address] | + + + | Home Phone | | + + + | Preferred Language | Unknown | + + + | Marital Status | | + + + | Anglican Affiliation | Unknown | + + + | Race | Unknown | + + + | Ethnic Group | Unknown | + + + Author + + + | Author | [facility] | | | and [place] | + + + | Organization | [facility] | | | and [place] | + + + | Address | Unknown | + + + | Phone | Unavailable | + + + Support + + + + + | Name | Relationship | Address | Phone | + + + + + | Osmin Jackson | ECON | [address] | | | | | [place] [address] | | + + + + + | Hunter Jacskon | ECON | [place] | | + + + + + | Wes Jackson | ECON | [place], [place] | | + + + + + | Oziel Jackson | ECON | [place], [place] | | + + + + + Care Team Providers + +------+ + | Care American Indian Policy Specialist Name | Role | Phone | + +------+ + | Rodolfo Cruz MD | PCP | | + +------+ + Reason for Visit + + + | Reason | Comments | + + + | Shoulder Pain | Right shoulder and right CMC joint pain follow-up | + + + Encounter Details +--------+---------+ + + + | Date | Type | Department | Care Team | Description | +--------+---------+ + + + | 08/05/ | Office | [facility] | Ulysses Jensen, | Rotator cuff | | 2013 | Visit | ORTHOPEDIC SURGERY | [facility] | syndrome of right | | | | [address] [facility] | [place] [address] | shoulder (Primary | | | | [place], [place] | [address] | Dx); CMC arthritis | | | | [address] | | | | | | [phone] | | | +--------+---------+ + + + [...] + + | Temperature | 36.4 C (97.5 F) | 08/05/2013 11:32 AM | | | | | PDT [...] + + + + | Weight | 92.5 kg (204 lb) | 08/05/2013 11:32 AM | | | | | PDT | | + + + + + | Height | 167.6 cm (5' 6") | 08/05/2013 11:32 AM | | | | | PDT | | + + + + + | Body Mass Index | 32.93 | 08/05/2013 11:32 AM | | | | | PDT | | + + + + + documented in this encounter Progress Notes Ulysses Jensen MD - 08/05/2013 11:37 AM PDTPt here for right shoulder SAS injection and r ight first CmC injection Under sterile conditions I injected her right first CMC joint under fluoro guidance 1/2 cc celestone and 1/2 cc marcaine. I then injected her right shoulder SAS with kenalog 40mg and 3cc marcaine She will return as needed Libra Merino RN - 08/05/2013 11:34 AM PDT-All required supplied/equipment present -All required imaging studies completed -Consent signed and consistent with patient's verbal understand of procedure -Patient identified by Name and Date of -Site verified by member of health care team Timeout complete Libra Jaime documented in this e ncounter Plan of Treatment +--------+---------+ + + + | Date | Type | Specialty | Care Team | Description | +--------+---------+ + + + | 06/02/ | Office | Orthopedic Surgery | Ulysses Jensen, | | | 2019 | Visit | | MD [address] | | | | | | [place], [place] | | | | | | [address] | | | | | | | | +--------+---------+ + + + | 11/21/ | Office | Cardiology | Yesi, | | | 2019 | Visit | | JOSE ALBERTO Linder [address] | | | | | | [place], | | | | | | [place] [address] | | | | | | [phone] | | | | | | | | +--------+---------+ + + + documented as of this encounter Visit Diagnoses + + | Diagnosis | + + | Rotator cuff syndrome of right shoulder - Primary Disorders of bursae and tendons in | | shoulder region, unspecified | + + | CMC arthritis Unspecified arthropathy, hand | + + documented in this encounter Administered Medications + +--------+ +------+------+------+ | Medication Order | MAR | Action | Dose | Rate | Site | | | Action | Date | | | | + +--------+ +------+------+------+ | betamethasone (CELESTONE | Given | 08/06/19 | 3 mg | | | | SOLUSPAN) injection 3 mg 3 mg, | | 14 11:37 | | | | | Intra-articular, EVERY 24 HOURS | | AM PDT | | | | | INTERVAL, First dose (after last | | | | | | | modification) on [facility] 08/05/13 at | | | | | | | 1200, For 2 doses, Shake well. | | | | | | | Not for IV use., | | | | | | + +--------+ +------+------+------+ +---+---+ | | | +---+---+ + +-------+ +-------+---+---+ | triamcinolone acetonide | Given | 08/06/19 | 40 mg | | | | (KENALOG-40) 40 mg/mL injection | | 14 11:40 | | | | | 40 mg 40 mg, Intra-articular, | | AM PDT | | | | | ONCE, [facility] 08/05/13 at 1200, For 1 | | | | | | | dose, Shake well. Not for IV | | | | | | | use., | | | | | | + +-------+ +-------+---+---+ +---+---+ | | | +---+---+ documented in this encounter
--- OUTSIDE RECORDS SUMMARY | ~2019-05-18 | XMS | Encounter Summary ---
Demographics + + + | Address | [address] | | | [place] [address] | + + + | Home Phone | | + + + | Preferred Language | Unknown | + + + | Marital Status | | + + + | Baptist Affiliation | Unknown | + + + | Race | Unknown | + + + | Ethnic Group | Unknown | + + + Author + + + | Author | [facility] | | | and [place] | + + + | Organization | [facility] | [...] | | | | | [place] [address] | | + + + + + | Hunter Jackson | ECON | [place] | | + + + + + | Wes Jackson | ECON | [place], [place] | | + + + + + | Oziel Jackson | ECON | [place], [place] | | + + + + + Care Team Providers + +------+ + | Care Algology Teacher Name | Role | Phone | + [...] + + | 11/26/ | Office | [facility] | Rodolfo Cruz, | Memory loss (Primary | | 2016 | Visit | MEDICINE [address] | [address] | Dx); [place], | | | | [address] [place] | [place] | unspecified | | | | [place] [address] | [address] | | | | | [phone] | | | +--------+---------+ + + + [...] No raúl rgy. With ER visit in [place] last week. This is persisting except for [...] [address] | | | | | | [place], | | | | | | [place] [address] | | | | | | [phone] | | | | | | | [...] [address] | [place] | [phone] | | [facility] | | [address] | | | - LABORATORY | | [...] | | [address] | | | [facility] | | | | | | [...] [address] | [place] | [phone] | | [facility] | | [address] | | | - LABORATORY | | [...] [address] | [place] | [phone] | | [facility] | | [address] | | | - LABORATORY | | | | + + + + + documented in this encounter Visit Diagnoses + + | Diagnosis | + + | Memory loss - Primary | + + | Urticaria, unspecified | + + documented in this encounter
--- OUTSIDE RECORDS SUMMARY | ~2019-05-18 | XMS | Encounter Summary ---
Demographics + + + | Address | [address] | | | [place] [address] | + + + | Home Phone [...] | Author | [facility] | | | and [place] | + + + | Organization | [facility] | | | and [place] | + + + | Address | Unknown | + + + | Phone | Unavailable | + + + Support + + + + + | Name | Relationship | Address | Phone | + + + + + | Osmin Jackson | ECON | [address] | | | | | [place] [address] | | + + + + + | Hunter Jackson | ECON | [place] | | + + + + + | Wes Jackson | ECON | [place], [place] | | + + + + + | Oziel Jackson | ECON | [place], [place] | | + + + + + Care Team Providers + +------+ + | Care Ceramic Tile Installer Name | Role | Phone | + +------+ + | Gunderson, Kellie PA | PCP | | + +------+ + Reason for Visit + + + | Reason | Comments | + + + | CPAP Follow Up | | + + + Encounter Details +--------+---------+ + + + | Date | Type | Department | Care Team | Description | +--------+---------+ + + + | 07/02/ | Office | [facility] | Braulio León | Psychophysiologic | | 2018 | Visit | SLEEP DISORDER [address] | MD [address] | insomnia (Primary | | | | [address] [place] | [address] [place] | Dx) | | | | [place] [address] | [place] [address] | | | | | [phone] | [phone] | | | | | | | [...] + + + | Blood Pressure | 120/70 | 07/02/2017 8:45 AM | | | | | PST | | + + + + + | Pulse | 53 | 07/02/2017 8:45 AM | | | | | PST | | + + + + + | Temperature | - | - | | + + + + + | Respiratory Rate | 16 | 07/02/2017 8:45 AM | | | | | PST | | + + + + + | Oxygen Saturation | 94% | 07/02/2017 8:45 AM | | | | | PST | | + + + + + | Inhaled Oxygen | - | - | | | Concentration | | | | + + + + + | Weight | 81.6 kg (179 lb 14.3 | 07/02/2017 8:45 AM | | | | oz) | [...] Patient Instructions Braulio León Jr., MD - 07/02/2017 8:30 AM PSTSLEEP SUGGESTIONS GREG Jackson 1) Awaken [...] you are sleepy and no earlier than Midnight. 9) Use your bedroom only for sleeping. [...] Progress Notes Braulio León Jr., MD - 07/02/2017 8:30 AM PSTThis patient comes in for follow-up after having been seen initially on June 13, 2017 for what I think is probably psychophysiolog ic insomnia. The following sleep suggestions were given to her at that time: Plan: SLEEP SUGGESTIONS FOR Soumya Jackson 1) [...] you are sleepy and no earlier than 11:30pm. 9) Use your bedroom only for sleeping. [...] time between bed time and wake time. Bedtime has been around 11:30pm. She estimates about an hour to fall asleep. She awakens ab out twice every night and she is awake for about 30-60 minutes and during this time she is j ust lying in bed with the light out. She is thinking that she wants to get back to sleep. Camelia issa isn't going to another room. She estimates that she is getting 5 hours of sleep per night. She last got more than 5 hour s of sleep when she had her heart surgery. She was getting 6-7 hours of sleep prior to that, she thinks. She states she does not feel worried. She is not afraid she is could have fur ther heart issues. She does not know why her sleep deteriorated. She also states she is feeling somewhat fatigued in the daytime she attributes to poor slee p. BP 120/70 | Pulse 53 | Resp 16 | Wt 81.6 kg (179 lb 14.3 oz) | SpO2 94% | BMI 29.94 kg /m A: Psychophysiologic Insomnia: Her son accompanies her today. We have discussed her sleep once again. I've actually questioned her assumption that her daytime fatigue is entirely re lated to poor sleep, although it certainly could be. I have asked her to think of other misbah sons a person could get fatigued in the daytime. Interestingly she was unable to think of a ny other reasons other than poor sleep. I have suggested that her medications he can make a person feel fatigued. In particular gabapentin as biggest side effect is probably on a fat igue and sleepiness. Hydrocodone can cause fatigue also. Lastly beta blockers can cause fa tigue although they typically don't cause sleepiness. The point in discussing this with her is that poor sleep is not the only thing that can cause daytime fatigue. It is important t o keep an open mind that her sleep may not be causing all of her daytime symptoms. I've als o pointed out that at the last visit she actually was not complaining of daytime fatigue; sh e was complaining only of poor sleep quality. I have offered her a formal trial of cognitiv e behavioral therapy for insomnia. This does involve weekly visits which she is unable to d o for practical reasons. We are going to do sort of a modified cognitive behavioral program emphasizing sleep consolidation therapy as opposed to sleep restriction therapy. I have di scussed this with the patient and her son. P: SLEEP SUGGESTIONS FOR Soumya Jackson 1) Awaken [...] you are sleepy and no earlier than Midnight. 9) Use your bedroom only for sleeping. [...] time between bed time and wake time. F/u in 3 weeks. Today, 25 minutes was spent face to face with the patient; the majority of time was spent c ulises regarding sleep. 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
--- OUTSIDE RECORDS SUMMARY | ~2019-05-18 | XMS | Encounter Summary ---
Demographics + + + | Address | [address] | | | [place] [address] | + + + | Home Phone | | + + + | Preferred Language | Unknown | + + + | Marital Status | | + + + | Evangelical Affiliation | Unknown | + + + | Race | Unknown | + + + | Ethnic Group | Unknown | + + + Author + + + | Author | [facility] | | | and [place] | + + + | Organization | [facility] | | | and [place] | + + + | Address | Unknown | + + + | Phone | Unavailable | + + + Support + + + + + | Name | Relationship | Address | Phone | + + + + + | Osmin Jackson | ECON | [address] | | | | | [place] [address] | | + + + + + | Hunter Jackson | ECON | [place] | | + + + + + | Wes Jackson | ECON | [place], [place] | | + + + + + | Oziel Jackson | ECON | [place], [place] | | + + + + + Care Team Providers + +------+ + | Care Supervisor Liquefaction Name | Role | Phone | + +------+ + | Rodolfo Cruz MD | PCP | | + +------+ + Reason for Visit + + + | Reason | Comments | + + + | Follow-up | Follow Up Right Shoulder and Right 1st CMC Injection Last | | | Injection 08/31/2015 | + + + Encounter Details +--------+---------+ + + + | Date | Type | Department | Care Team | Description | +--------+---------+ + + + | 11/29/ | Office | [facility] | Ulysses Jensen, | CMC arthritis | | 2016 | Visit | ORTHOPEDIC SURGERY | [address] | (Primary Dx); | | | | [address] | [place] [address] | Rotator cuff | | | | [place] | [address] | syndrome of right | | | | [address] | | shoulder | | | | [phone] | | | +--------+---------+ + + + [...] Weight | 82.1 kg (181 lb) | 11/30/2015 11:36 AM | | | | | PDT | | + + + + + | Height | 162.6 cm (5' 4") | 11/30/2015 11:36 AM | | | | | PDT | | + + + + + | Body Mass Index | 31.07 | 11/30/2015 11:36 AM | | | | | PDT | | + + + + + documented in this encounter Progress Notes Ulysses Jensen MD - 11/30/2015 5:46 PM PDTPatient returns for right shoulder subacromial injection and right first CMC joint injection Under sterile conditions today I injected her right shoulder subacromial space with Kenalog 40 mg and 3 cc of Marcaine Under sterile conditions today I injected her right first CMC joint Celestone 3 mg and Govind kj 1 cc She will return as needed documented in this encounter Plan of Treatment +--------+---------+ + + + | Date | Type | Specialty | Care Team | Description | +--------+---------+ + + + | 06/02/ | Office | Orthopedic Surgery | Ulysses Jensen, | | | 2019 | Visit | | MD Danny [address] | | | | | | [place] | | | | | | [address] | | | | | | | | +--------+---------+ + + + | 11/21/ | Office | Cardiology | Yesi, | | | 2019 | Visit | | JOSE ALBERTO Linder [address] | | | | | | [place], | | | | | | [place] [address] | | | | | | [phone] | | | | | | | | +--------+---------+ + + + documented as of this encounter Visit Diagnoses + + | Diagnosis | + + | CMC arthritis - Primary Unspecified arthropathy, hand | + + | Rotator cuff syndrome [...] + | betamethasone (CELESTONE | Given | 11/30/19 | 3 mg | | Other | | SOLUSPAN) injection 3 mg 3 mg, | | 16 11:39 | | | (Comment | | Intra-articular, ONCE, Roxy | | AM PDT | | | ) | | 11/30/15 at 1200, For 1 dose, | | | | | | | Shake well. Not for IV use., | | | | | | + +--------+ +------+------+ + +---+---+ | | | +---+---+ + +-------+ +-------+---+ + | triamcinolone acetonide | Given | 11/30/19 | 40 mg | | Shoulder | | (KENALOG-40) 40 mg/mL injection | | 16 11:40 | | | -Right | | 40 mg 40 mg, Intra-articular, | | AM PDT | | | | | ONCE, [facility] 11/30/15 at 1200, For 1 | | | | | | | dose, Shake well. Not for IV | | | | | | | use., | | | | | | + +-------+ +-------+---+ + +---+---+ | | | +---+---+ documented in this encounter
--- OUTSIDE RECORDS SUMMARY | ~2019-05-18 | XMS | Encounter Summary ---
Demographics + + + | Address | [address] | | | [place] [address] | + + + | Home Phone | | + + + | Preferred Language | Unknown | + + + | Marital Status | | + + + | Voodoo Affiliation | Unknown | + + + | Race | Unknown | + + + | Ethnic Group | Unknown | + + + Author + + + | Author | [facility] | | | and [place] | + + + | Organization | [facility] | | | and [...] | | | | | [place] [address] | | + + + + + | Hunter Jackson | ECON | [place] | | + + + + + | Wes Jackson | ECON | [place], [place] | | + + + + + | Oziel Jackson | ECON | [place], [place] | | + + + + + Care Team Providers + +------+ + | Care Structural Steel Engineer Name | Role | Phone | + +------+ + | Rodolfo Cruz MD | PCP | | + +------+ + Reason for Visit + + + | Reason | Comments | + + + | Flank Pain | | + + + Encounter Details +--------+ + + + + | Date | Type | Department | Care Team | Description | +--------+ + + + + | 09/20/ | Emergency | [facility] | Diogenes Gray, | Thoracic | | 2013 | | [facility] | [address] | radiculopathy | | | | [place] [address] | [facility] [place] | (Primary Dx) | | | | [place] | [place] [address] | | | | | [address] | [phone] | | | | | [phone] | | | +--------+ + + + [...] + + + | Blood Pressure | 141/84 | 09/20/2013 3:13 AM | | | | | PDT | | + + + + + | Pulse | 88 | 09/20/2013 3:13 AM | | | | | PDT | | + + + + + | Temperature | - | - | | + + + + + | Respiratory Rate | 16 | 09/20/2013 3:13 AM | | | | | PDT | | + + + + + | Oxygen Saturation | 96% | 09/20/2013 3:13 AM | | | | | PDT | | + + + + + | Inhaled Oxygen | - | - | | | Concentration | | | | + + + + + | Weight | - | - | | + + + + + | Height | 167.6 cm (5' 6") | 09/20/2013 12:25 AM | | | | | PDT | | + + + + + | Body Mass Index | - | - | | + + + + + documented in this encounter Discharge Instructions Instructions Diogenes Gray MD - 09/20/2013Take the medication as prescribed You can try heat intermittently Followup with your primary care provider Return immediately if your symptoms worsen If your symptoms do not resolve with the treatment regimen he may need an MRI. AttachmentsThe following attachments cannot be sent through Care Everywhere.THORACIC STRAIN (TAJIK)documented in this encounter Medications at Time of [...] + + + +---------+ + + | acyclovir | one by mouth 5 x per | | 0 | 10/30/19 | | | (ZOVIRAX) 800 mg | day as needed for | | | 12 | 4 | | tablet | shingles eruption. | | | | | + + [...] + + +---------+ + + | aspirin 325 mg | Take 325 mg by mouth | | 0 | 01/23/20 | | | tablet | Daily. | | | 12 | 4 | + + + +---------+ + + | [facility] OIL PO | CAPS Take 1250 mg by | | 0 | 01/23/20 | | | | mouth daily. | | | 12 | 4 | + + + +---------+ + + | diclofenac | TAKE ONE TABLET BY | 180 | 1 | 09/02/19 | | | (VOLTAREN) 75 mg EC | MOUTH TWICE A DAY | tablet | | 14 | 4 | | tablet | | | | [...] tablet by | 90 | 1 | 09/04/19 | | | 20 mg | mouth Daily. | tablet | | 13 | 4 | | tabletIndications: | | [...] + + + +---------+ + + | methylPREDNISolone | Follow package | 21 | 0 | 09/21/19 | | | (MEDROL DOSEPAK) 4 | directions. | tablet | | 14 | 4 | | mg tablet | | | | | [...] +---------+ + + | metoprolol | TAKE 1/2 TABLET BY | 45 | 3 | 04/24/20 | | | succinate | MOUTH DAILY | tablet | | 13 | 4 | | (TOPROL-XL) 50 mg 24 | | | | | | | hr tablet | | | | | | + + + +---------+ + + | ondansetron | Take 1 tablet by | 12 | 0 | 09/21/19 | | | (ZOFRAN ODT) 4 mg | mouth every 8 hours | tablet | | 14 | 4 | | disintegrating | as needed for Nausea | | | | | | tablet | for up to 12 doses. | | | | | + + + +---------+ + + | | Take 1 tablet by | 15 | 0 | 09/21/19 | | | oxyCODONE-acetaminop | mouth every 6 hours | tablet | | 14 | 4 | | hen (PERCOCET) 5-325 | as needed for Pain. | | | | | | mg per tablet | | | | | | [...] [place]RE[place] | | | | | | [address] | | | | | | | | +--------+---------+ + + + | 11/21/ | Office | Cardiology | Yesi, | | | 2019 | Visit | | JOSE ALBERTO Linder [address] | | | | | | [place], | | | | | | [place] [address] | | | | | | [phone] | | | | | | | | +--------+---------+ + + + documented as of this encounter Procedures + +--------+ + + + | Procedure Name | Priori | Date/Time | Associated Diagnosis | Comments | | | ty | | | | + +--------+ + + + | URINALYSIS WITH | STAT | 09/20/2013 | | Results for this | | MICROSCOPIC WITH | | 1:57 AM | | procedure are in the | | CULTURE IF INDICATED | | PDT | | results section. | + +--------+ + + + | POCT URINALYSIS, | STAT | 09/20/2013 | | Results for this | | AUTO WITH CONF | | 1:18 AM | | procedure are in the | | | | PDT | | results section. | + +--------+ + + + | CT RENAL STONE WO | STAT | 09/20/2013 | | Results for this | | CONTRAST | | 12:53 AM | | procedure are in the | | | | PDT | | results section. | + +--------+ + + + documented in this encounter Results Urinalysis with Microscopic with Culture if Indicated (09/20/2013 1:57 AM PDT) + + + + + + | Component | Value | Ref Range | Performed | Pathologist | | | | | At | Signature | + + + + + + | Color, | Yellow | Light Yellow, | [facility] | | | Urine | | Yellow | [facility] | | | | [...] + + + | pH, Urine | 6.5 | 5.0 - 8.0 | [facility] | | | | | | [facility] | | | | | | MEDICAL | | | | | | C[facility] - | | | | | | LABORATORY | | + + + + + + | Specific | 1.010 | 1.001 - 1.030 | [facility] | | | [place] | | | [facility] | | | | | | MEDICAL | | | | | | CENTER - | | | | | | LABORATORY | | + + + + + + | Protein, | Negative | Negative, | [facility] | | | Urine | | Trace, 30 mg/dL | [facility] | | | [...] | | Urine | | | [facility] | | | | | | MEDICAL | | | | | | CENTER - | | | | | | LABORATORY | | + + + + + + | Ketones, | Negative | Negative | [facility] | | | Urine | | | [facility] | | | | | | MEDICAL | | | | | | CENTER - | | | | | | LABORATORY | | + + + + + + | Bilirubin, | Negative | Negative | [facility] | | | Urine | | | [facility] | | [...] + + + + | Leukocyte | Trace (A) | Negative | [facility] | | | Esterase, | | | [facility] | | | Urine | | | MEDICAL | | | | | | CENTER - | | | | | | LABORATORY | | + + + + + + | Urobilinoge | 0.2 E.U./dL | 0.2 E.U./dL | [facility] | | | n, Urine | | | [facility] | | | | | | MEDICAL | | | | | | CENTER - | | | | | | LABORATORY | | + + + + + + | WBC UA | 2-5 (A) | 0 - 2 /HPF | [facility] [...] + + + + | SQUAMOUS | 2-5 (A) | 0 - 2 /LPF | [facility] | | | EPITHELIAL | | | [facility] | | | UA | | | MEDICAL | | | | | | CENTER - | | | | | | LABORATORY | | + + + + + + | BACTERIA UA | Negative | Negative /HPF | [facility] | | [...] + | [facility] | [address] | [place] | [phone] | | [facility] | | [address] | | | - LABORATORY | | | | + + + + + | [facility] | [address] | [place] | | | [facility] | | [address] | | | - LABORATORY | | | | + + + + + POCT Urinalysis Dipstick Automated (09/20/2013 1:18 AM PDT) + + + + + + | Component | Value | Ref Range | Performed | Pathologist | | | | | At | Signature | + + + + + + | Color, UA, | Pale Yellow | | | | | POC | | | | | + + + + + + | Clarity, | Clear | | | | | UA, POC | | | | | + + + + + + | Glucose, | Negative | | | | | UA, POC | | | | | + + + + + + | Bilirubin, | Negative | | | | | UA, POC | | | | | + + + + + + | Ketones, | Negative | Negative | | | | UA, POC | | | | | + + + + + + | Specific | 1.015 | | | | | [place], | | | | | | UA, POC | | | | | + + + + + + | Blood, UA, | Negative | | | | | POC | | | | | + + + + + + | pH, UA, POC | 7.0 | | | | + + + + + + | Protein, | Negative | | | | | UA, POC | | | | | + + + + + + | Urobilinoge | 0.2 E.U./dL | | | | | n, UA, POC | | | | | + + + + + + | Nitrite, | Negative | | | | | UA, POC | | | | | + + + + + + | Leukocyte | Trace | | | | | Esterase, | | | | | | UA, POC | | | | | + + + + + + | Reducing | | | | | | Substances, | | | | | | Urine | | | | | + + + + + + | Ictotest | | Negative | | | + + + + + + | Remark | | | | | + + + + + + + + | Specimen | + + | Urine specimen | | (specimen) | + + CT Renal Stone Wo Contrast (09/20/2013 12:53 AM PDT) + + | Specimen | + + | | + + + + + | Narrative | Performed At | + + + | CT RENAL STONE WO CONTRAST. HISTORY: FLANK PAIN. Right flank | MISCELANIOUS | | pain. COMPARISON: None available. TECHNIQUE: Axial images | LAB | | were obtained through the abdomen and pelvis without IV contrast. | | | Multiplanar reformatted images created. FINDINGS: Mild | | | atelectasis is seen in the visualized portions of the lung bases. | | | There is an approximately 4 mm pulmonary nodule seen laterally at | | | the left lung base. The visualized portions of the nonenhanced | | | liver and spleen are unremarkable. There is fullness of the | | | gallbladder, without wall thickening or pericholecystic fluid or | | | inflammation. The pancreas, spleen, and bilateral adrenal glands are | | | within normal limits. Both kidneys are within normal limits, | | | without stone or hydronephrosis. No ureteral abnormalities are seen. | | | The stomach, duodenum, and small bowel are within normal limits. | | | A few scattered diverticuli are seen in the splenic flexure of the | | | colon, without wall thickening or inflammatory change to suggest | | | diverticulitis. The ileocecal junction is within normal limits. The | | | appendix is unremarkable. There is no free intraperitoneal air or | | | fluid. No pathologically enlarged abdominal or pelvic lymph nodes. | | | There is vascular calcification. The abdominal and pelvic vascular | | | structures are otherwise unremarkable. The bladder is | | | unremarkable. Multiple phleboliths are seen in the low pelvis. | | | Otherwise, no focal abnormality is seen within the pelvis. There | | | is degenerative disc disease and spondylotic change. No lytic or | | | blastic lesions. There is osteopenia. There is a fat-containing | | | umbilical hernia, noninflamed. Bilateral fat-containing umbilical | | | hernias are seen. The muscles and subcutaneous soft tissues are | | | otherwise unremarkable. IMPRESSION - No evidence of urinary | | | tract stone or obstructive uropathy. No abnormality of the appendix. | | | No acute abnormality on CT to explain the patient's right flank pain. | | | Dictated and Signed by: Gaurav Masters MD Electronically | | | signed: 09/20/2013 8:37 AM | | + + + + + | Procedure Note | + + | Remington, Rad Results In - 09/20/2013 8:[address] RENAL STONE WO CONTRAST. | | | | HISTORY: FLANK PAIN. Right flank pain. | | | | COMPARISON: None available. | | | | TECHNIQUE: Axial images were obtained through the abdomen and pelvis without IV | | contrast. Multiplanar reformatted images created. | | | | FINDINGS: | | Mild atelectasis is seen in the visualized portions of the lung bases. There is | | an approximately 4 mm pulmonary nodule seen laterally at the left lung base. | | | | The visualized portions of the nonenhanced liver and spleen are unremarkable. | | There is fullness of the gallbladder, without wall thickening or pericholecystic | | fluid or inflammation. The pancreas, spleen, and bilateral adrenal glands are | | within normal limits. | | | | Both kidneys are within normal limits, without stone or hydronephrosis. | | No ureteral abnormalities are seen. | | | | The stomach, duodenum, and small bowel are within normal limits. | | A few scattered diverticuli are seen in the splenic flexure of the colon, | | without wall thickening or inflammatory change to suggest diverticulitis. | | The ileocecal junction is within normal limits. | | The appendix is unremarkable. | | | | There is no free intraperitoneal air or fluid. | | No pathologically enlarged abdominal or pelvic lymph nodes. | | There is vascular calcification. The abdominal and pelvic vascular structures | | are otherwise unremarkable. | | | | The bladder is unremarkable. | | Multiple phleboliths are seen in the low pelvis. Otherwise, no focal | | abnormality is seen within the pelvis. | | There is degenerative disc disease and spondylotic change. No lytic or blastic | | lesions. There is osteopenia. | | There is a fat-containing umbilical hernia, noninflamed. Bilateral | | fat-containing umbilical hernias are seen. The muscles and subcutaneous soft | | tissues are otherwise unremarkable. | | | | | | IMPRESSION - | | No evidence of urinary tract stone or obstructive uropathy. | | No abnormality of the appendix. | | No acute abnormality on CT to explain the patient's right flank pain. | | | | Dictated and Signed by: Gaurav Masters MD | | Electronically signed: 09/20/2013 8:37 AM | + + + +---------+ + + | Performing | Address | City/State/Zipcode | Phone Number | | Organization | | | | + +---------+ + + | MISCELLANEOUS LAB | | | [phone] | + +---------+ + + | MISCELANIOUS LAB | | | [phone] | + +---------+ + + documented in this encounter Visit Diagnoses + + | Diagnosis | + + | Thoracic radiculopathy - Primary Thoracic or lumbosacral neuritis or radiculitis, | | unspecified | + + documented in this encounter Administered Medications + +--------+ +------+------+------+ | Medication Order | MAR | Action | Dose | Rate | Site | | | Action | Date | | | | + +--------+ +------+------+------+ | dexamethasone (DECADRON) tablet | Given | 09/21/19 | 4 mg | | | | 4 mg 4 mg, Oral, ONCE, Mon | | 14 3:00 | | | | | 09/20/13 at 0245, For 1 dose | | AM PDT | | | | + +--------+ +------+------+------+ +---+---+ | | | +---+---+ + +-------+ +--------+---+---+ | HYDROmorphone (PF) (DILAUDID) 1 | Given | 09/21/19 | 0.5 mg | | | | mg/mL injection 0.5 mg 0.5 mg, | | 14 1:37 | | | | | Intravenous, ONCE, 09/20/13 at | | AM PDT | | | | | 0100, For 1 dose | | | | | | + +-------+ +--------+---+---+ +---+---+ | | | +---+---+ + + + +------+---+---+ | ondansetron (ZOFRAN ODT) | Dispense | 09/21/19 | 4 mg | | | | disintegrating tablet (ED | to Home | 14 3:02 | | | | | homepack) 4 mg 4 mg, Oral, ONCE, | | AM PDT | | | | | 09/20/13 at 0245, For 1 dose, | | | | | | | Dissolve on tongue or swallow 1 | | | | | | | or 2 tablets every 8 hours prn | | | | | | | nausea or vomiting Dispense for | | | | | | | home use., | | | | | | + + + +------+---+---+ +---+---+ | | | +---+---+ + +-------+ +------+---+---+ | ondansetron (ZOFRAN) injection | Given | 09/21/19 | 4 mg | | | | 4 mg 4 mg, Intravenous, ONCE, | | 14 1:30 | | | | | 09/20/13 at 0100, For 1 dose | | AM PDT | | | | + +-------+ +------+---+---+ +---+---+ | | | +---+---+ + + + + +---+---+ | oxyCODONE-acetaminophen | Dispense | 09/21/19 | 1 tablet | | | | (PERCOCET) 5-325 mg per tablet | to Home | 14 3:01 | | | | | (ED prepack) 1-2 tablet 1-2 | | AM PDT | | | | | tablet, Oral, ONCE, 09/20/13 | | | | | | | at 0245, For 1 dose, 1-2 | | | | | | | tablet(s) every 6 hours prn pain | | | | | | | Dispense for home use., | | | | | | + + + + +---+---+ +---+---+ | | | +---+---+ documented in this encounter
--- OUTSIDE RECORDS SUMMARY | ~2019-05-18 | XMS | Encounter Summary ---
Demographics + + + | Address | [address] | | | [place] [address] | + + + | Home Phone | | + + + | Preferred Language | Unknown | + + + | Marital Status | | + + + | Rastafarian Affiliation | Unknown | + + + | Race | Unknown | + + + | Ethnic Group | Unknown | + + + Author + + + | Author | [facility] | | | and [place] | + + + | Organization | [facility] | | | and [place] | + + + | Address | Unknown | + + + | Phone | Unavailable | + + + Support + + + + + | Name | Relationship | Address | Phone | + + + + + | Osmin Jackson | ECON | [address] | | | | | [place] [address] | | + + + + + | Hunter Jackson | ECON | [place] | | + + + + + | Wes Jackson | ECON | [place], [place] | | + + + + + | Oziel Jackson | ECON | [place], [place] | | + + + + + Care Team Providers + +------+ + | Care Monitor Worker Name | Role | Phone | + +------+ + | Rodolfo Cruz MD | PCP | | + +------+ + Encounter Details +--------+ + + + + | Date | Type | Department | Care Team | Description | +--------+ + + + + | 08/18/ | Abstract | [facility] [place] | Harsha Selby | | | 2014 | | PHYSIATRY [address] | MD Josh [address] | | | | | [place], | [place] | | | | | [place] [address] | [address] | | | | | [phone] | | | +--------+ + + + [...] | | | | | | [place] [address] | | | | | | [phone] | | | | | | | | +--------+---------+ + + + documented as of this encounter Visit Diagnoses Not on filedocumented in this encounter"
--- OUTSIDE RECORDS SUMMARY | ~2019-05-18 | XMS | Encounter Summary ---
Demographics + + + | Address | [address] | | | [place] [address] | + + + | Home Phone | | + + + | Preferred Language | Unknown | + + + | Marital Status | | + + + | Mandaeism Affiliation | Unknown | + + + | Race | Unknown | + + + | Ethnic Group | Unknown | + + + Author + + + | Author | [facility] | | | and [place] | + + + | Organization | [facility] | | | and [place] | + + + | Address | Unknown | + + + | Phone | Unavailable | + + + Support + + + + + | Name | Relationship | Address | Phone | + + + + + | Osmin Jackson | ECON | [address] | | | | | [place] [address] | | + + + + + | Hunter Jackson | ECON | [place] | | + + + + + | Wes Jackson | ECON | [place], [place] | | + + + + + | Oziel Jackson | ECON | [place], [place] | | + + + + + Care Team Providers + +------+ + | Care Fire Systems Inspector Name | Role | Phone | [...] + + | Closed | Specialty | Otolaryngolog | Diagnoses | Nancy, | Zion Davis | | | Services | y | Vertigo | Rodolfo Reilly MD | EMD [address] | | | Required | | | [address] | | | | | | [address] [place] | [address] | | | | | | [place], [place] | [place], | | | | | | [address] | [place] [address] | | | | | | Phone: | Phone: | | | | | | [phone] | [phone] | | | | | | Fax: | Fax: | | | | | | [phone] | [phone] | +--------+ + + + + + Reason for Visit + + + | Reason | Comments | + + + | Follow-up | | + + + Encounter Details +--------+---------+ + + + | Date | Type | Department | Care Team | Description | +--------+---------+ + + + | 02/17/ | Office | [facility] | Rodolfo Cruz, | Vertigo (Primary Dx) | | 2011 | Visit | [facility] | [address] | | | | | [address] | [place] | | | | | [place] | [address] | | | | | [address] | | | | | | [phone] | | | +--------+---------+ + + + [...] + + + | Blood Pressure | 136/72 | 02/18/2012 10:45 AM | | | | | PDT | | + + + + + | Pulse | 64 | 02/18/2012 10:45 AM | | | | | PDT | | + + + + + | Temperature | 36.6 C (97.8 F) | 02/18/2012 10:45 AM | | | | | PDT | | + + + + + | Respiratory Rate | 16 | 02/18/2012 10:45 AM | | | | | PDT | | + + + + + | Oxygen Saturation | 96% | 02/18/2012 10:45 AM | | | | | PDT | | + + + + + | Inhaled Oxygen | - | - | | | Concentration | | | | + + + + + | Weight | 93.9 kg (207 lb) | 02/18/2012 10:45 AM | | | | | PDT | | + + + + + | Height | 158.8 cm (5' 2.5") | 02/18/2012 10:45 AM | | | | | PDT | | + + + + + | Body Mass Index | 37.26 | 02/18/2012 10:45 AM | | | | | PDT | | + + + + + documented in this encounter Progress Notes Rodolfo Cruz MD - 02/18/2012 11:00 AM PDTFormatting of this note might be different f rom the original. Subjective: Patient ID: Soumya Jackson is a 76 y.o. female. HPI BPV, dizzyness with change in position for the last three weeks. She has been to the [facility] and the ER for this. She has had an EKG and labs for this, It is getting a little b it better. There is no ear pain. No past medical history on file. No past surgical history on file. No family history on file. History Social History Marital Status: Spouse Name: N/A Number of Children: N/A Years of Education: N/A Social History Main Topics Smoking status: Former Smoker -- 3.0 packs/day for 20 years Types: Cigarettes Quit date: 05/12/1976 Smokeless tobacco: None Alcohol Use: No Drug Use: No Sexually Active: None Other Topics Concern None Social History Narrative None Review of Systems Review of Systems Constitutional: Negative for fever, appetite change and fatigue. HENT: Negative for ear pain, nosebleeds, rhinorrhea, trouble swallowing and sinus pressure. Eyes: Negative for pain and visual disturbance. Respiratory: Negative for cough, chest tightness, shortness of breath and wheezing. Cardiovascular: Negative for chest pain, palpitations and leg swelling. Gastrointestinal: Negative for nausea, vomiting, diarrhea, constipation and abdominal diste ntion. Liberty pain, black or bloody stools, excessive gas Genitourinary: Negative for urgency, frequency, decreased urine volume and difficulty urina ting. Bloody urine Musculoskeletal: Negative for myalgias, back pain, joint swelling and arthralgias. Skin: Negative for color change, rash and wound. Strange moles Neurological: Negative for dizziness, weakness, light-headedness, numbness and headaches. Hematological: Negative for adenopathy. Does not bruise/bleed easily. Psychiatric/Behavioral: Negative for suicidal ideas, confusion and agitation. Depression, anxiety, sleep problems Objective: Physical Exam Heent, WNL, No carotid bruit, no nystagmus Chest CTAB Heart RR&R /s M Abd S,NT,ND,BS+ Ext, no CCor E Neuro Non-focal Lymph, no cervical, axillary, inguinal adenopathy Musculoskeletal, no gross deformity or loss or range of motion Skin, no gross lesions Assessment: 1. Vertigo Plan: Refer to ENT, Trial of keflex, she had an allergy to vasile a long time ago and the reaction was diarrhea with no rash. documented in this encounter Plan of Treatment +--------+---------+ + + + | Date | Type | Specialty | Care Team | Description | +--------+---------+ + + + | 06/02/ | Office | Orthopedic Surgery | Ulysses Jensen, | | 2019 | Visit | | MD [address] | | | | | | [place] | | | | | | [id number] | | | | | | | | +--------+---------+ + + + | 11/21/ | Office | Cardiology | Yesi, | | | 2019 | Visit | | JOSE ALBERTO Linder [address] | | | | | | [place], | | | | | | [place] [address] | | | | | | [phone] | | | | | | | | +--------+---------+ + + + + + +--------+ + + | Name | Type | Priori | Associated Diagnoses | Order Schedule | | | | ty | | | + + +--------+ + + | Ambulatory referral | Outpatient | Routin | Vertigo | 1 Occurrences | | to ENT | Referral | e | | starting 02/18/2012 | | | | | | until 02/17/2013 | + + +--------+ + + documented as of this encounter Visit Diagnoses + + | Diagnosis | + + | Vertigo - Primary Dizziness and giddiness | + + documented in this encounter
--- OUTSIDE RECORDS SUMMARY | ~2019-05-18 | XMS | Encounter Summary ---
Demographics + + + | Address | [address] | | | [place] [address] | + + + | Home Phone | | + + + | Preferred Language | Unknown | + + + | Marital Status | | + + + | Holiness Affiliation | Unknown | + + + | Race | Unknown | + + + | Ethnic Group | Unknown | + + + Author + + + | Author | [facility] | | | and [place] | + + + | Organization | [facility] | | | and [place] | + + + | Address | Unknown | + + + | Phone | Unavailable | + + + Support + + + + + | Name | Relationship | Address | Phone | + + + + + | Osmin Jackson | ECON | [address] | | | | | [place] [address] | | + + + + + | Hunter Jackson | ECON | [place] | | + + + + + | Wes Jackson | ECON | [place], [place] | | + + + + + | Oziel Jackson | ECON | [place], [place] | | + + + + + Care Team Providers + +------+ + | Care Edger Feeder Name | Role | Phone | + +------+ + | Kellie Gunderson | PCP | | + +------+ + Reason for Visit + + + | Reason | Comments | + + + | New Patient | | + + + Encounter Details +--------+ + + + + | Date | Type | Department | Care Team | Description | +--------+ + + + + | 03/22/ | Telephone | [facility] | Kellie Gunderson PA | New Patient | | 2019 | | [facility] | [address] [facility] | | | | | [address] | [address] [place], [place] | | | | | [place] | [address] | | | | | [address] | | | | | | [phone] | | | +--------+ + + + [...] | | | | | | [place] [address] | | | | | | [phone] | | | | | | | | +--------+---------+ + + + documented as of this encounter Visit Diagnoses Not on filedocumented in this encounter"
--- OUTSIDE RECORDS SUMMARY | ~2019-05-18 | XMS | Encounter Summary ---
Demographics + + + | Address | [address] | | | [place] [address] | + + + | Home Phone | | + + + | Preferred Language | Unknown | + + + | Marital Status | | + + + | Judaism Affiliation | Unknown | + + + | Race | Unknown | + + + | Ethnic Group | Unknown | + + + Author + + + | Author | [facility] | | | and [place] | + + + | Organization | [facility] [...] | | | | | [place] [address] | | + + + + + | Hunter Jackson | ECON | [place] | | + + + + + | Wes Jackson | ECON | [place], [place] | | + + + + + | Oziel Jackson | ECON | [place], [place] | | + + + + + Care Team Providers + +------+ + | Care Egg Crater Name | Role | Phone | + +------+ + | Rodolfo Cruz MD | PCP | | + +------+ + Reason for Visit + + + | Reason | Comments | + + + | Lab Order | due for fasting labs | + + + Encounter Details +--------+ + + + + | Date | Type | Department | Care Team | Description | +--------+ + + + + | 05/17/ | Telephone | [facility] [place] | Yesi, | Lab Order (due for | | 2015 | | CARDIOLOGY [address] | [address]ERTO [address] | fasting labs) | | | | [place], | [place], | | | | | [place] [address] | [place] [address] | | | | | [phone] | [phone] | | | | | | | [...] 06/02/ | Office | Orthopedic Surgery | lUysses Jensen, | | | 2019 | Visit | | MD [address] | | | | | | [place] | | | | | | [id number] | | | | | | | | +--------+---------+ + + + | 11/21/ | Office | Cardiology | Yesi, | | | 2019 | Visit | | JOSE ALBERTO [address]inder [address] | | | | | | [place] | | | | | | [place] [address] | | | | | | [phone] | | | | | | | | +--------+---------+ + + + documented as of this encounter Visit Diagnoses + + | Diagnosis | + + | Hyperlipidemia, unspecified hyperlipidemia - Primary | + + documented in this encounter"
--- OUTSIDE RECORDS SUMMARY | ~2019-05-18 | XMS | Encounter Summary ---
Demographics + + + | Address | [address] | | | [place] [address] | + + + | Home Phone | | + + + | Preferred Language | Unknown | + + + | Marital Status | | + + + | Holiness Affiliation | Unknown | + + + | Race | Unknown | + + + | Ethnic Group | Unknown | + + + Author + + + | Author | [facility] | | | and [place] | + + + | Organization | [facility] | | | and [place] | + + + | Address | Unknown | + + + | Phone | Unavailable | + + + Support + + + + + | Name | Relationship | Address | Phone | + + + + + | Osmin Jackson | ECON | [address] | | | | | [place] [address] | | + + + + + | Hunter Jackson | ECON | [place] | | + + + + + | Wes Jackson | ECON | [place], [place] | | + + + + + | Oziel Jackson | ECON | [place], [place] | | + + + + + Care Team Providers + +------+ + | Care Learning Design Specialist Name | Role | Phone | [...] | | | atherosclero | | [address] | | | | | sis of | | [place], | | | | | unspecified | | [place] [address] | | | | | type of | | Phone: | | | | | vessel, | | [phone] | | | | | [place] | | Fax: | | | | | graft | | [phone] | | | | | Coronary | | | | | | | atherosclero | | | | | | | sis of | | | | | | | unspecified | | | | | | | type of | | | | | | | vessel, | | | | | | | [place] or | | | | | | | graft | | | | | | | Procedures | | | | | | | [place] ENDOSCOPY | | | | | | | | | | | | | | W/VIDEO-ASST | | | | | | | VEIN | | | | | | | HARVEST,CABG | | | | | | | [place] CABG, | | | | | | | ARTERY-VEIN, | | | | | | | FOUR [place] | | | | | | | CABG, | | | | | | | ARTERIAL, | | | | | | | SINGLE | | | +--------+--------+ + + + + Encounter Details +--------+ + + + + | Date | Type | Department | Care Team | Description | +--------+ + + + + | 10/31/ | Hospital | [facility] | Amna Benavides, | | | 2017 | Encounter | [facility] | PA-C [address] | | | | | LABORATORY [address] | [address] [place], [place] | | | | | [address] [place] | [address] | | | | | [address] | | | | | | [phone] | | | +--------+ + + + [...] Take one by | | 0 | 09/13/20 | | | Citrate-Vitamin D | mouth [...] [place] | | | | | | [address] | | | | | | | | +--------+---------+ + + + | 11/21/ | Office | Cardiology | Yesi, | | | 2019 | Visit | | JOSE AL[address]ERTO [address] | | | | | | [place], | | | | | | [place] [address] | | | | | | [phone] | | | | | | | | +--------+---------+ + + + documented as of this encounter Visit Diagnoses Not on filedocumented in this encounter"
--- OUTSIDE RECORDS SUMMARY | ~2019-05-18 | XMS | Encounter Summary ---
Demographics + + + | Address | [address] | | | [place] [address] | + + + | Home Phone | | + + + | Preferred Language | Unknown | + + + | Marital Status | | + + + | Yarsani Affiliation | Unknown | + + + | Race | Unknown | + + + | Ethnic Group | Unknown | + + + Author + + + | Author | [facility] | | | and [place] | + + + | Organization | [facility] | | | and [place] | + + + | Address | Unknown | + + + | Phone | Unavailable | + + + Support + + + + + | Name | Relationship | Address | Phone | + + + + + | Osmin Jackson | ECON | [address] | | | | | [place] [address] | | + + + + + | Hunter Jackson | ECON | [place] | | + + + + + | Wes Jackson | ECON | [place], [place] | | + + + + + | Oziel Jackson | ECON | [place], [place] | | + + + + + Care Team Providers + +------+ + | Care Custodial Maintenance Worker Name | Role | Phone | + +------+ + | Rodolfo Cruz MD | PCP | | + +------+ + Encounter Details +--------+ + + + + | Date | Type | Department | Care Team | Description | +--------+ + + + + | 06/02/ | Hospital | [facility] | Rodolfo Cruz, | Osteoarthritis | | 2012 - | Encounter | [facility] | MD [address] | | | | | [address] [place] | [place] | | | 06/04/ | | [place] | [id number] | | | 2012 | | [address] | | | | | | [phone] | | | +--------+ + + + [...] +---------+ + + | amLODIPine | Take 5 mg by mouth | | 0 | 01/23/20 | | | (NORVASC) 5 mg | Daily. | | | 12 | 3 | | tablet | | | | | | + + + +---------+ + + | aspirin 325 mg | Take 325 mg by mouth | | 0 | 01/23/20 | | | tablet | Daily. | | | 12 | 4 | + + + +---------+ + + | Cholecalciferol | TABS Take two by | | 0 | 01/23/20 | | | (D-5000 PO) | mouth daily. | | | 12 | 4 | + + + +---------+ + + | [facility] GARLIC OIL PO | CAPS Take 1250 mg by | | 0 | 01/23/20 | | | | mouth daily. | | | 12 | 4 | + + + +---------+ + + | diclofenac | Take 75 mg by mouth | | 0 | 01/23/20 | | | (VOLTAREN) 75 mg EC | 2 times daily. | | | 12 | 3 | | tablet | | | | | | + + + +---------+ + + | diphenhydrAMINE | Take 25 mg by mouth | | 0 | 06/04/19 | | | (BENADRYL) 25 MG | as needed. | | | 11 | 5 | | capsule | | | | | | + + + +---------+ + + | fenofibrate | Take 48 mg by mouth | | 0 | 01/23/20 | | | (TRICOR) 48 mg | Daily. | | | 12 | 3 | | tablet | | | | | | + + + +---------+ + + | furosemide (LASIX) | Take 20 mg by mouth | | 0 | 01/23/20 | | | 20 mg tablet | Daily. | | | 12 | 3 | + + + +---------+ + + [...] | | succinate (TOPROL | Daily. Taking 1/2 | | | 11 | 3 | | XL) 50 mg 24 hr | tab daily | | | | | | tablet | | | | | | + + + +---------+ + + | omeprazole | Take 20 mg by mouth | | 0 | 10/30/19 | | | (PRILOSEC) 20 mg | as needed. | | | 12 | 3 | | capsule | | | | | | + + + +---------+ + + | SYNTHROID 125 MCG | TAKE 1 TABLET BY | 90 each | 2 | 05/07/20 | | | tabletIndications: | MOUTH EVERY DAY | | | 12 | 3 | | Hypothyroidism | | | | [...] [place] | | | | | | [address] | | | | | | | | +--------+---------+ + + + | 11/21/ | Office | Cardiology | Yesi, | | | 2019 | Visit | | JOSE ALBERTO [address] | | | | | | [place] | | | | | | [place] [address] | | | | | | [phone] | | | | | | | | +--------+---------+ + + + documented as of this encounter Procedures + +--------+ + + + | Procedure Name | Priori | Date/Time | Associated Diagnosis | Comments | | | ty | | | | + +--------+ + + + | SEDIMENTATION RATE | Routin | 06/02/2012 | | Results for this | | | e | 3:49 PM | | procedure are in the | | | | PST | | results section. | + +--------+ + + + | SEDIMENTATION RATE | Routin | 06/02/2012 | Osteoarthritis | Results for this | | | e | 3:44 PM | | procedure are in the | | | | PST | | results section. | + +--------+ + + + documented in this encounter Results Sedimentation Rate (06/02/2012 3:49 PM PST) + +-------+ + + + | Component | Value | Ref Range | Performed | Pathologist | | | | | At | Signature | + +-------+ + + + | ESR | 29 | 0 - 30 mm/hr | [facility] | | | | [...] + | [facility] | [address] | [place], [place] | [phone] | | [facility] | | [address] | | | - LABORATORY | | | | + + + + + | [facility] | [address] | [place], [place] | | | [facility] | | [address] | | | - LABORATORY | | | | + + + + + Sedimentation Rate (06/02/2012 3:44 PM PST) + +-------+ + + + | Component | Value | Ref Range | Performed | Pathologist | | | | | At | Signature | + +-------+ + + + | ESR | 29 | 0 - 30 mm/hr | [facility] | | | | | [...] + + | [facility] | [address] | [place] | [phone] | | [facility] | | [address] | | | - LABORATORY | | | | + + + + + | [facility] | [address] | [place] | | | [facility] | | [address] | | | - LABORATORY | | | | + + + + + documented in this encounter Visit Diagnoses + + | Diagnosis | + + | Osteoarthritis Osteoarthrosis, unspecified whether generalized or localized, | | unspecified site | + + documented in this encounter"
--- OUTSIDE RECORDS SUMMARY | ~2019-05-18 | XMS | Encounter Summary ---
Demographics + + + | Address | [address] | | | [place] [address] | + + + | Home Phone | | + + + | Preferred Language | Unknown | + + + | Marital Status | | + + + | Hindu Affiliation | Unknown | + + + | Race | Unknown | + + + | Ethnic Group | Unknown | + + + Author + + + | Author | [facility] | | | and [place] | + + + | Organization | [facility] | | | [...] | | | | | [place] [id number] | | + + + + + | Hunter Jackson | ECON | [place] | | + + + + + | Wes Jackson | ECON | [place], [place] | | + + + + + | Oziel Jackson | ECON | [place], [place] | | + + + + + Care Team Providers + +------+ + | Care Director Of Reimbursement Name | Role | Phone | + [...] + + | Closed | Specialty | Gastroenterol | Diagnoses | Nancy, | Merissa, | | | Services | ogy | PUD (peptic | Rodolfo Reilly MD | Kamille, | | | Required | | ulcer | [address] | [facility] [address] | | | | | disease) | [place] [place] | Will Jaramillo | | | | | | [place] | [address] | | | | | | [id number] | [place] | | | | | | Phone: | [phone] Phone: | | | | | | [phone] | [phone] | | | | | | Fax: | Fax: | | | | | | [phone] | [phone] | +--------+ + + + + + Diagnostic/Screening (Emergency) +--------+--------+ + + + + | Status | Reason | Specialty | Diagnoses / | Referred By | Referred To | | | | | Procedures | Contact | Contact | +--------+--------+ + + + + | Closed | | Radiology | Diagnoses | [place], | [address] | | | | | Lytic bone | Rodolfo Reilly MD | [address] [facility] | | | | | lesions on | [address] | [place], | | | | | xray | [address] [place] | [place] [address] | | | | | Procedures | [place], [place] | Phone: | | | | | CT Chest | [address] | [phone] | | | | | Abdomen | Phone: | Fax: | | | | | Pelvis w | [phone] | [phone] | | | | | Contrast | Fax: | | | | | | | [phone] | | +--------+--------+ + + + + Reason for Visit + + + | Reason | Comments | + + + | Follow-up | 3 week | + + + Encounter Details +--------+---------+ + + + | Date | Type | Department | Care Team | Description | +--------+---------+ + + + | 11/08/ | Office | [facility] | Rodolfo Cruz, | Lytic bone lesions | | 2013 | Visit | MEDICINE [address] [place] [address] | [address] | on xray (Primary | | | | [address] [place] | [place], [place] | Dx); Back pain; | | | | [place] [address] | [phone] | Constipation; PUD | | | | [phone] | | (peptic ulcer | | | | | | disease) | +--------+---------+ + + + Social History [...] + + + | Blood Pressure | 130/62 | 11/08/2013 2:58 PM | | | | | PDT | | + + + + + | Pulse | 66 | 11/08/2013 2:58 PM | | | | | PDT | | + + + + + | Temperature | 36.9 C (98.4 F) | 11/08/2013 2:58 PM | | | | | PDT | | + + + + + | Respiratory Rate | 20 | 11/08/2013 2:58 PM | | | | | PDT | | + + + + + | Oxygen Saturation | 98% | 11/08/2013 2:58 PM | | | | | PDT | | + + + + + | Inhaled Oxygen | - | - | | | Concentration | | | | + + + + + | Weight | 80.7 kg (178 lb) | 11/08/2013 2:58 PM | | | | | PDT | | + + + + + | Height | - | - | | + + + + + | Body Mass Index | 28.73 | 11/03/2013 7:45 AM | | | | | PDT | | + + + + + documented in this encounter Progress Notes Rodolfo Cruz MD - 11/08/2013 12:01 PM PDTFormatting of this note might be different f rom the original. Subjective: Patient ID: Soumya Jackson is a 78 y.o. female. HPI Recent GI bleed Started Wed morning. She became very pale. Some weakness, She had black stools the Friday before. She is not on iron. She became sweaty and clammy, She was subs equently hosp and transfused. She is no longer having any bloody or black stools. She is n ot longer taking her voltaren. She still has the radiating back pain which has been going on since the beginning of September. This is been under the right rib area. She has been slightly constipated, She takes prn mi ralax. Possible osseous lytic lesions. Review of Systems Objective: Physical Exam Good Color. NAD Heent, WNL, No carotid bruit Chest CTAB Heart RR&R /s M Abd S,NT,ND,BS+ Ext, no CCor E Neuro Non-focal Lymph, no cervical, axillary, inguinal adenopathy Musculoskeletal, no gross deformity or loss or range of motion Skin, no gross lesions Assessment: 1. Lytic bone lesions on xray CT Chest Abdomen Pelvis w Contrast 2. Back pain HYDROcodone-acetaminophen (NORCO) 7.5-325 mg per tablet 3. Constipation 4. PUD (peptic ulcer disease) Ambulatory referral to Gastroenterology Plan: Refer to [facility]. CT of CAP with contrast pending. SPEP negative. RTC 2 w eeks. Consider lesion bx CT is neg. documented in this encounter Plan of Treatment +--------+---------+ + + + | Date | Type | Specialty | Care Team | Description | +--------+---------+ + + + | 06/02/ | Office | Orthopedic Surgery | Ulysses Jensen, | | | 2019 | Visit | | MD [address] | | | | | | [place], [place] | | | | | | [address] | | | | | | | | +--------+---------+ + + + | 11/21/ | Office | Cardiology | Yesi, | | | 2019 | Visit | | JOSE ALBERTO [address] | | | | | | [place], | | | | | | [place] [address] | | | | | | [phone] | | | | | | | | +--------+---------+ + + + + + +--------+ + + | Name | Type | Priori | Associated Diagnoses | Order Schedule | | | | ty | | | + + +--------+ + + | Ambulatory referral | Outpatient | Routin | PUD (peptic ulcer | Ordered: 11/08/2013 | | to Gastroenterology | Referral | e | disease) | | + + +--------+ + + documented as of this encounter Results CT Chest Abdomen Pelvis w Contrast (11/09/2013 1:12 PM PDT) + + | Specimen | + + | | + + + + | Addenda | + + | Addendum by Wes Masters MD on 11/09/2013 5:01 PM The initial | | impression should have included mention of multiple pulmonary nodules measuring up to | | 7 mm in maximal dimension. Small pulmonary nodules are a common finding on chest CT. | | The incidence of malignancy in such nodules is small, and even in smokers is between 1% | | and 5%, comparable to the baseline risk of cancer in a smoker. PET scanning and | | percutaneous needle biopsy are not reliable to diagnose malignancy in such a small | | nodule, and the risk of thoracoscopy and surgery is generally comparable or greater | | than the risk of cancer in the nodule. Because of this, we recommend managing such a | | nodule with follow-up CT. In a nonsmoker, we recommend follow-up CT examinations at | | 12 and 24 months. In a smoker or someone with other risk factors, we recommend | | follow-up CT examination at 6, 12, and 24 months. Dictated and Signed by: Gaurav | | MD Sonam Electronically signed: 11/09/2013 4:58 PM | + + + + + | Narrative | Performed At | + + + | CT CHEST ABDOMEN PELVIS W CONTRAST . 11/09/2013 1:08 PM HISTORY: | [facility] | | Bone lesion seen on prior MRI COMPARISON: CT renal stone study | LAB | | 09/20/2013. MRI thoracic spine 10/26/2013 TECHNIQUE: Axial images | | | were obtained from the base of the neck to the inferior pelvis | | | following the uneventful intravenous administration of 90 mL Omnipaque | | | 350 contrast. Oral contrast was administered. Multiplanar | | | reformatted images created. FINDINGS: Chest: The structures | | | at the base of the neck are unremarkable. No pathologically enlarged | | | mediastinal lymph nodes are evident. The esophagus is within normal | | | limits. The trachea is within normal limits. Calcification is seen | | | in the aorta and branching vessels, which are otherwise unremarkable. | | | The pulmonary arterial structures are within normal limits. There | | | is coronary artery calcification. The heart is otherwise within | | | normal limits, without pericardial effusion. There is an | | | approximately 4 mm pulmonary nodule at the right lung apex, series 4, | | | image 9. There is an approximately 6 mm x 3 mm x 2 mm pleural-based | | | nodule in the right upper lobe abutting the minor fissure, series 4, | | | image 38. There is an approximately 5 mm pulmonary nodule in the | | | right lower lobe abutting the major fissure, image 39. There is an | | | approximately 6 mm pulmonary nodule in the right middle lobe | | | anteriorly and laterally, image 53. There is an approximately 6 mm | | | pulmonary nodule at the right lung base posteriorly abutting the | | | diaphragm, image 61. There is an approximately 5 mm pleural-based | | | nodule in the left lower lobe abutting the fissure, series 4, image | | | 41. A second, nearby pulmonary nodule measuring 3 mm is also seen | | | in the right lower lobe abutting the fissure, image 43. There is an | | | approximately 7 mm x 3 mm x 4 mm pulmonary nodule in the left lower | | | lobe abutting the fissure, series 4, image 47. There is an | | | approximately 4 mm pulmonary nodule in the left lower lobe | | | posteriorly, series 4, image 46. There is an approximately 3 mm | | | pulmonary nodule peripherally in the left lower lobe at the lung | | | base, image 61. Atelectasis and/or scarring is seen at the lung | | | bases. The lungs are otherwise unremarkable, without pleural | | | effusion or pneumothorax. Abdomen/pelvis: The liver, gallbladder, | | | pancreas, spleen, and bilateral adrenal glands are normal. There | | | is a small focus of hypoattenuation in the anterior, medial, inferior | | | right kidney measuring 5 mm in diameter, too small to accurately | | | characterize. There is an approximately 8mm focus of hypoattenuation | | | medially at the mid pole of the right kidney, too small to | | | accurately characterize, although potentially representing normal | | | variation of contrast enhancement among the different parts of the | | | renal parenchyma. No suspicious areas are seen in the right kidney. | | | There is an extrarenal pelvis on the right. The left kidney is | | | unremarkable in appearance, without stone or hydronephrosis. No | | | ureteral abnormalities. There is a small hiatal hernia. The | | | stomach is otherwise unremarkable. The duodenum and small bowel are | | | within normal limits. A few scattered diverticula of the sigmoid | | | colon are noted, without evidence of diverticulitis. The ileocecal | | | junction is within normal limits. The appendix is within normal | | | limits. There is no free intraperitoneal air or fluid. A few, | | | scattered prominent mesenteric lymph nodes are seen in the region of | | | the pelvis, measuring up to 8 mm in short axis, series 3, images 126 | | | and 128. No pathologically enlarged abdominal or pelvic lymph nodes | | | are seen. There is vascular calcification. The abdominal and | | | pelvic vascular structures are otherwise unremarkable. The | | | bladder is unremarkable. Calcification is noted in the right lateral | | | aspect of the uterus, diabetes seen with calcification within a | | | fibroid. Uterus is otherwise unremarkable in appearance. | | | Sclerotic change is noted anteriorly in the left humeral head, without | | | focal mass, and without focal transition zone, corresponding to the | | | area of abnormality on the prior bone scan. Mild groundglass | | | increased density is seen in the right side of the manubrium, without | | | focal transition zone, corresponding to the abnormality seen on the | | | prior MRI and the prior bone scan, best seen series 3, image 19, and | | | series 601, image 108. There is an approximately 3 mm focus of | | | calcification seen anteriorly in the left sixth rib, corresponding to | | | the abnormality seen on the prior bone scan, somewhat nonspecific in | | | appearance, as normal calcification in the costochondral cartilage | | | has a similar appearance. There is degenerative disc disease and | | | osteopenia. Schmorl's node is seen inferiorly at T8. There is | | | diastasis of the rectus fascia in the midline at the level of the | | | umbilicus. There is a fat-containing umbilical hernia, noninflamed. | | | The muscles and subcutaneous soft tissues are otherwise | | | unremarkable. 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 No evidence of primary disease to suggest possible | | | source for metastasis. Recommend short-term follow-up | | | contrast-enhanced MRI of the chest and left shoulder, to include STIR | | | sequences in three months. Dictated and Signed by: Gaurav Pruett | | MD Sonam Electronically signed: 11/09/2013 3:04 PM | | + + + + + | Procedure Note | + + | [place], Rad Results In - 11/09/2013 3:[address] CHEST ABDOMEN PELVIS W CONTRAST . | | 11/09/2013 1:08 PM HISTORY: Bone lesion seen on prior MRI COMPARISON: CT renal stone | | study 09/20/2013. MRI thoracic spine 10/26/2013 TECHNIQUE: Axial images were obtained | | from the base of the neck to the inferiorpelvis following the uneventful intravenous | | administration of 90 mL [id number] contrast. Oral contrast was administered. | | Multiplanar reformatted imagescreated.FINDINGS: Chest:The structures at the base of the | | neck are unremarkable.No pathologically enlarged mediastinal lymph nodes are | | evident.The esophagus is within normal limits.The trachea is within normal | | limits.Calcification is seen in the aorta and branching vessels, which are | | otherwiseunremarkable.The pulmonary arterial structures are within normal limits.There | | is coronary artery calcification. The heart is otherwise within normallimits, without | | pericardial effusion.There is an approximately 4 mm pulmonary nodule at the right lung | | apex, series4, image 9.There is an approximately 6 mm x 3 mm x 2 mm pleural-based nodule | | in the rightupper lobe abutting the minor fissure, series 4, image 38.There is an | | approximately 5 mm pulmonary nodule in the right lower lobe abuttingthe major fissure, | | image 39.There is an approximately 6 mm pulmonary nodule in the right middle | | lobeanteriorly and laterally, image 53.There is an approximately 6 mm pulmonary nodule | | at the right lung baseposteriorly abutting the diaphragm, image 61.There is an | | approximately 5 mm pleural-based nodule in the left lower lobeabutting the fissure, | | series 4, image 41. A second, nearby pulmonary nodulemeasuring 3 mm is also seen in the | | right lower lobe abutting the fissure, image43.There is an approximately 7 mm x 3 mm x | | 4 mm pulmonary nodule in the left lowerlobe abutting the fissure, series 4, image | | 47.There is an approximately 4 mm pulmonary nodule in the left lower lobeposteriorly, | | series 4, image 46.There is an approximately 3 mm pulmonary nodule peripherally in the | | left lowerlobe at the lung base, image 61.Atelectasis and/or scarring is seen at the | | lung bases. The lungs are otherwiseunremarkable, without pleural effusion or | | pneumothorax.Abdomen/pelvis:The liver, gallbladder, pancreas, spleen, and bilateral | | adrenal glands arenormal.There is a small focus of hypoattenuation in the anterior, | | medial, inferiorright kidney measuring 5 mm in diameter, too small to accurately | | characterize. There is an approximately 8mm focus of hypoattenuation medially at the mid | | poleof the right kidney, too small to accurately characterize, although | | potentiallyrepresenting normal variation of contrast enhancement among the different | | partsof the renal parenchyma. No suspicious areas are seen in the right kidney. There | | is an extrarenal pelvis on the right.The left kidney is unremarkable in appearance, | | without stone or hydronephrosis.No ureteral abnormalities.There is a small hiatal | | hernia. The stomach is otherwise unremarkable. Theduodenum and small bowel are within | | normal limits.A few scattered diverticula of the sigmoid colon are noted, without | | evidence ofdiverticulitis.The ileocecal junction is within normal limits.The appendix is | | within normal limits.There is no free intraperitoneal air or fluid.A few, scattered | | prominent mesenteric lymph nodes are seen in the region of thepelvis, measuring up to 8 | | mm in short axis, series 3, images 126 and 128. Nopathologically enlarged abdominal or | | pelvic lymph nodes are seen.There is vascular calcification. The abdominal and pelvic | | vascular structuresare otherwise unremarkable.The bladder is unremarkable.Calcification | | is noted in the right lateral aspect of the uterus, diabetes seenwith calcification | | within a fibroid. Uterus is otherwise unremarkable inappearance.Sclerotic change is | | noted anteriorly in the left humeral head, without focalmass, and without focal | | transition zone, corresponding to the area ofabnormality on the prior bone scan.Mild | | groundglass increased density is seen in the right side of the manubrium,without focal | | transition zone, corresponding to the abnormality seen on theprior MRI and the prior | | bone scan, best seen series 3, image 19, and series 601,image 108.There is an | | approximately 3 mm focus of calcification seen anteriorly in theleft sixth rib, | | corresponding to the abnormality seen on the prior bone scan,somewhat nonspecific in | | appearance, as normal calcification in the costochondralcartilage has a similar | | appearance.There is degenerative disc disease and osteopenia. Schmorl's node is | | seeninferiorly at T8.There is diastasis of the rectus fascia in the midline at the level | | of theumbilicus. There is a fat-containing umbilical hernia, noninflamed. Themuscles | | and subcutaneous soft tissues are otherwise unremarkable. IMPRESSION - Nonspecific areas | | of mild groundglass opacification without associated lytic orovert labral blastic | | stones seen in the right side of the manubrium and lefthumeral head, corresponding to | | the areas of abnormality on the prior bone scan,with diagnostic possibilities including | | focal areas of fibrous dysplasia.No evidence of primary disease to suggest possible | | source for metastasis.Recommend short-term follow-up contrast-enhanced MRI of the chest | | and leftshoulder, to include STIR sequences in three months.Dictated and Signed by: Gaurav | | MD Sonam Electronically signed: 11/09/2013 3:04 PM | |The ileocecal junction is within normal limits. | |The appendix is within normal limits. | | | |There is no free intraperitoneal air or fluid. | | | |A few, scattered prominent mesenteric lymph nodes are seen in the region of the | |pelvis, measuring up to 8 mm in short axis, series 3, images 126 and 128. No | |pathologically enlarged abdominal or pelvic lymph nodes are seen. | | | |There is vascular calcification. The abdominal and pelvic vascular structures | |are otherwise unremarkable. | | | |The bladder is unremarkable. | |Calcification is noted in the right lateral aspect of the uterus, diabetes seen | |with calcification within a fibroid. Uterus is otherwise unremarkable in | |appearance. | | | |Sclerotic change is noted anteriorly in the left humeral head, without focal | |mass, and without focal transition zone, corresponding to the area of | |abnormality on the prior bone scan. | |Mild groundglass increased density is seen in the right side of the manubrium, | |without focal transition zone, corresponding to the abnormality seen on the | |prior MRI and the prior bone scan, best seen series 3, image 19, and series 601, | |image 108. | |There is an approximately 3 mm focus of calcification seen anteriorly in the | |left sixth rib, corresponding to the abnormality seen on the prior bone scan, | |somewhat nonspecific in appearance, as normal calcification in the costochondral | |cartilage has a similar appearance. | |There is degenerative disc disease and osteopenia. Schmorl's node is seen | |inferiorly at T8. | | | |There is diastasis of the rectus fascia in the midline at the level of the | |umbilicus. There is a fat-containing umbilical hernia, noninflamed. The | |muscles and subcutaneous soft tissues are otherwise unremarkable. 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 | |No evidence of primary disease to suggest possible source for metastasis. | |Recommend short-term follow-up contrast-enhanced MRI of the chest and left | |shoulder, to include STIR sequences in three months. | | | |Dictated and Signed by: Gaurav Masters MD | | Electronically signed: 11/09/2013 3:04 PM | + + + +---------+ + + | Performing | Address | City/State/Zipcode | Phone Number | | Organization | | | | + +---------+ + + | [facility] | | | [phone] | + +---------+ + + | [facility] | | | [phone] | + +---------+ + + documented in this encounter Visit Diagnoses + + | Diagnosis | + + | Lytic bone lesions on xray - Primary Disorder of bone and cartilage, unspecified | + + | Back pain Backache, unspecified | + + | Constipation Unspecified constipation | + + | PUD (peptic ulcer disease) Peptic ulcer, unspecified site, unspecified as acute or | | chronic, without mention of hemorrhage, perforation, or obstruction | + + documented in this encounter"
--- OUTSIDE RECORDS SUMMARY | ~2019-05-18 | XMS | Encounter Summary ---
Demographics + + + | Address | [address] | | | [place] [address] | + + + | Home Phone [...] | Author | [facility] | | | and [place] | + + + | Organization | [facility] | [...] [place] | | | | | [place] [address] | | + + + + + | [place] | ECON | [place] | | + + + + + | Wes Jackson | ECON | [place], [place] | | + + + + + | Oziel Jackson | ECON | [place], [place] | | + + + + + Care Team Providers + +------+ + | Care Osteopathic Medicine Teacher Name | Role | Phone | + +------+ + | Gunderson, Kellie PA | PCP | | + +------+ + Reason for Visit + + + | Reason | Comments | + + + | Follow-up | | + + + | Coronary Artery | | | Disease | | + + + | Hypertension | | + + + Encounter Details +--------+---------+ + + + | Date | Type | Department | Care Team | Description | +--------+---------+ + + + | 06/01/ | Office | [facility] [place] | Yesi, | TIA; Valvular heart | | 2019 | Visit | CARDIOLOGY [address] | JOSE ALBERTO [address] | disease; Epistaxis; | | | | [place], | [place], | Murmur; Essential | | | | [place] [address] | [place] [address] | hypertension with | | | | [phone] | [phone] | goal blood pressure | | | | | | less than 130/80; | | | | | | Coronary artery | | | | | | disease involving | | | | | | [place] coronary | | | | | | artery of [place] | | | | | | heart with unstable | | | | | | angina pectoris | | | | | | ([facility]); Chest pain, | | | | | | unspecified type; | | | | | | Hyperlipidemia, [...] + + + | Blood Pressure | 140/58 | 06/01/2018 10:45 AM | | | | | PST | | + + + + + | Pulse | 53 | 06/01/2018 10:45 AM | | | | | PST | | + + + + + | Temperature | - | - | | + + + + + | Respiratory Rate | 16 | 06/01/2018 10:45 AM | | | | | PST | | + + + + + | Oxygen Saturation | - | - | | + + + + + | Inhaled Oxygen | - | - | | | Concentration | | | | + + + + + | Weight | 82.8 kg (182 lb 8.7 | 06/01/2018 10:45 AM | | | | oz) | PST | | + + + + + | Height | 165.1 cm (5' 5") | 06/01/2018 10:45 AM | | | | | PST | | + + + + + | Body Mass Index | 30.38 | 06/01/2018 10:45 AM | | | | | PST | | + + + + + documented in this encounter Progress Notes Niyah Key ARNP - 06/01/2018 10:45 AM PSTFormatting of this note might be differen t from the original. PATIENT NAME: Soumya Jackson : 1935: AGE: 82 y.o. PRIMARY CARE: FLORA Morgan OUTPATIENT FOLLOW UP VISIT Date of Service: 06/01/2018 HISTORY OF PRESENT ILLNESS: Soumya Jackson is a 82 y.o. female with a history of coronary artery disease post CABG 3 on 11/01/16, moderate aortic valve insufficiency, essential hypertension, osteoarthritis, h ypothyroidism, dyslipidemia, elevated CRP. She is being seen today for follow up coronary a rtery disease and hypertension. She was last seen 04/27/2018 at which time she would stop Metoprolol 25 mg twice a day. St art Isosorbide 30 mg once daily. Check blood pressure log. Follow up in [address] pain/pressure episodes. Since that time, she was seen by Dr. Jensen for a right shoulde r injection. She stopped her metoprolol and started Isosorbide 30 mg once daily. She has had a poor energy level. She has not been very active. She walks about 1/2 mile 2 times a week. She feel that her energy level is been "crappy" and she is not sleeping well. She enjoys painting in her spare time. She has not had any chest pain or discomfort at rest or with exertion. She has not noticed shortness of breath. She has not had any lighthead edness or dizziness. She has not noticed palpitations. She has not had leg swelling. She is able to sleep laying down at night without any symptoms of shortness of breath. MEDICAL, SURGICAL, AND PERSONAL HISTORY Past Medical, [...] cervical Cervical radiculopathy Coronary artery disease involving [place] coronary artery of [place] heart with unstable angina pectoris Stress hyperglycemia Psychophysiologic insomnia Chest pain CURRENT MEDICATIONS Current Outpatient Prescriptions Medication Sig Dispense Refill amLODIPine (NORVASC) 10 MG tablet Take 10 mg by mouth Daily. aspirin 81 mg chewable tablet Take 2 tablets by mouth Daily. 30 tablet 2 atorvaSTATin (LIPITOR) 40 mg tablet TAKE ONE TABLET BY MOUTH EVERY DAY IN THE EVENING 9 0 tablet 3 B Complex Vitamins (VITAMIN B COMPLEX PO) Take 1 tablet by mouth Daily. BIOTIN PO Take 500 mg by mouth Daily. busPIRone (BUSPAR) 5 mg tablet Take 5 mg by mouth Daily. Can take twice a day if needed Calcium Citrate-Vitamin D (CITRACAL MAXIMUM PO) TABS Take one by mouth three times rafia y. Cholecalciferol (D-5000 PO) Take 5,000 Units by mouth Daily. diclofenac (VOLTAREN) 1% GEL Apply 1 g topically Daily as needed. 100 g 0 Docusate Calcium (STOOL SOFTENER PO) Take 1 tablet by mouth Daily. DULoxetine (CYMBALTA) [address] capsule furosemide (LASIX) 20 mg tablet Take 20 mg by mouth Daily. gabapentin (NEURONTIN) 300 mg capsule Take 300 mg by mouth once. GARLIC Take 1,000 mg by mouth Daily. HYDROcodone-acetaminophen (NORCO) 7.5-325 mg per tablet Take 1 tablet by mouth Daily. T akes 1/2 in the AM and 1/2 in the PM isosorbide mononitrate (IMDUR) 30 mg ER tablet Take 1 tablet by mouth Daily. 30 tablet 3 L-Lysine HCl 500 MG CAPS Take 500 mg by mouth Daily. levothyroxine (SYNTHROID) 88 mcg tablet lisinopril (PRINIVIL, ZESTRIL) 10 mg tablet TAKE TWO TABLETS BY MOUTH EVERY DAY 180 tab let 3 magnesium-calcium carbonate (SLOW-MAG) 71.5-119 MG TBEC Take 71.5-119 mg by mouth Daily . Melatonin (MELATONIN MAXIMUM STRENGTH) 5 MG TABS Take 5 mg by mouth Daily as needed. (P atient taking differently: Take 10 mg by mouth Daily as needed.) Multiple Vitamins-Minerals (OCUVITE ADULT 50+) CAPS Take [...] Risedronate Sodium Actonel - Patient not remember Nsaids Other (See Comments) Penicillins Diarrhea Caused "black diarrhea" when she had her 4th child. Yellow Dye Itching ROS Review of Systems Constitutional: Positive for malaise/fatigue. Respiratory: Negative for shortness of breath. Cardiovascular: Negative for chest pain, palpitations, orthopnea and leg swelling. Neurological: Positive for weakness. Negative for dizziness. Lightheadedness- No OBJECTIVE: PHYSICAL EXAM BP 140/58 | Pulse 53 | Resp 16 | Ht 1.651 m (5' 5") | Wt 82.8 kg (182 lb 8.7 oz) | BMI 30.38 kg/m Physical Exam Constitutional: She is oriented to person, place, and time. She appears well-developed and well-nourished. No distress. Female individual without acute distress here with a friend Neck: Normal carotid pulses, no hepatojugular reflux and no JVD present. Carotid bruit is n ot present. Cardiovascular: Regular rhythm, S1 normal, S2 normal, intact distal pulses and normal pulse s. Bradycardia present. PMI is not displaced. Exam reveals no [...] No resp iratory distress. She has no decreased breath sounds. She has no wheezes. She has no rhonchi . She has no rales. Abdominal: Normal appearance, normal aorta and bowel sounds are normal. She exhibits no abd ominal bruit. There is no hepatosplenomegaly. There is no tenderness. Musculoskeletal: Normal range of motion. She exhibits edema (mild lower extremity edema). Neurological: She is alert and oriented to person, place, and time. Gait normal. Skin: Skin is warm, dry and intact. Bruising noted. Psychiatric: She has a normal mood and affect. Her mood appears not anxious. She does not e xhibit a depressed mood. Vitals reviewed. ECG: I personally independently reviewed ECG tracing during this visit (interpreted and bree led by another provider): Results for orders placed or performed in visit on 06/01/2018 ECG 12 lead Result Value Ref Range INTERPRETATION TEXT Sinus bradycardia Possible Left atrial enlargement Borderline ECG Heart rate 53 bpm LAB RESULTS reviewed during visit today primarily from [facility]: LIPID Lab Results Component Value Date CHOL 218 (H) 09/26/2015 TRIG 98 09/26/2015 HDL 71 09/26/2015 LDL 127 09/26/2015 CHOLHDL 1.9 05/30/2018 LDLEX 125 (A) 05/19/2015 HDLEX 82 05/30/2018 TRIGEX 59 05/30/2018 CHOLEX 158 05/30/2018 CHEMISTRY Lab Results Component Value Date GLU 114 (H) 11/06/2016 GLUEX 99 05/30/2018 NA 136 11/06/2016 NAEX 135 05/30/2018 K 4.0 11/06/2016 KEX 4.3 05/30/2018 CL 100 11/06/2016 CLEX 96 05/30/2018 CO2 29 (H) 11/06/2016 CO2EX 28 05/30/2018 CALCIUM 8.6 11/06/2016 ALKPHOS 70 11/07/2015 AST 19 11/07/2015 ASTEX 32 05/30/2018 ALT 12 11/07/2015 ALTEX 28 05/30/2018 BILITOT 0.5 11/07/2015 CREA 0.44 (L) 11/06/2016 BUN 7 (L) 11/06/2016 EGFR >60 11/06/2016 EGFREX 86 05/30/2018 CREEX 0.66 (A) 05/30/2018 HEMATOLOGY Lab Results Component Value Date WBC 17.2 (H) 11/04/2016 WBCEX 7.7 05/30/2018 HGB 9.7 (L) 11/04/2016 HGBEX 14.4 05/30/2018 HCT 29.0 (L) 11/04/2016 HCTEX 43.3 05/30/2018 PLT 205 11/04/2016 PLTEX 389 05/30/2018 Lab Results Component Value Date TSH 0.85 09/26/2015 TSHEX 1.29 04/24/2016 BNPEX 63 09/18/2016 I reviewed records from [facility] for office visit on 04/2018 whic h is summarized in the HPI. RESULTS- I reviewed reports from [facility]: No results found. Above data and testing is reviewed this visit; testing below is historical data unless othe rwise specified. ASSESSMENT: 1. Coronary artery disease A. Seen at [facility] they had EKG and sent her home stating it was GERD B. Seen in the emergency room at [facility] for chest pain. Sh e was schedule for stress test and discharged home. C. Stress Test 05/16/16, is maximal asymptomatic stress test, [facility] er very poor function status, achieving [...] central AI, no , trace TR, trace TX, normal aorta other than mild calcification at [...] Olivas MD. J. Stress test 10/16/2017 shows RegadenosonEKG is negative, normal RegadenosonSestamibimyocardial perfusion study with a normal left ventricular size and w all thickness, evidence of inferior wall soft tissue attenuation, preserved left ventricular systolic function, LVEF by gated SPECT 76 % by Christopher Simms MD. K. Today, 06/01/2018, she has had less episodes of chest pain almost to none. So complaints of feeling shaky and dealing with a cold. She is in class II of th e [place] [employer] functional class. There are no signs or symptoms of overt adonis estive heart failure. 2. Essential hypertension with goal blood pressure less than 130/80: A. Today, 06/01/2018, blood pressure is shows to be better controll ed. She is having majority of her readings between 120s and 140. Considering her age she w ill be safe to stay within those ranges.. 3. Heart murmur due to aortic valve [...] Lipitor after open heart surgery. PLAN: 1. Patient will continue same therapeutic medical regimen. She will obtain new with isosor bide since it worked very well for the chest pain. She has been in encouraged to increase h er physical activity and exercise more regularly. 2. She will follow up in 6 months for office visit, or sooner with concerns. She will let us know if she has any other issues Portions of this chart may have been created with [employer] voice recognition software. Occasi onal wrong-word or [...] [place] | | | | | | [address] | | | | | | | | +--------+---------+ + + + | 11/21/ | Office | Cardiology | Yesi, | | | 2019 | Visit | | JOSE ALBERTO [address] | | | | | | [place], | | | | | | [place] [address] | | | | | | [phone] | | | | | | | | +--------+---------+ + + + documented as of this encounter Procedures + +--------+ + + + | Procedure Name | Priori | Date/Time | Associated Diagnosis | Comments | | | ty | | | | + +--------+ + + + | ECG 12 LEAD | Routin | 06/01/2018 | Essential | Results for this | | | e | 11:09 AM | hypertension with | procedure are in the | | | | PST | goal blood pressure | results section. | | | | | less than 130/80 | | | | | | Coronary artery | | | | | | disease involving | | | | | | [place] coronary | | | | | | artery of [place] | | | | | | heart with unstable | | | | | | angina pectoris | | | | | | ([facility]) Chest pain, | | | | | | unspecified type | | + +--------+ + + + documented in this encounter Results ECG 12 lead (06/01/2018 11:09 AM PST) + + + + + + | Component | Value | Ref Range | Performed | Pathologist | | | | | At | Signature | + + + + + + | VENTRICULAR | 53 | BPM | [facility] | | | RATE EKG | | | | | + + + + + + | ATRIAL RATE | 53 | BPM | [facility] | | + + + + + + | P-R | 140 | ms | [facility] | | | INTERVAL | | | | | + + + + + + | QRS | 88 | ms | [facility] | | | DURATION | | | | | + + + + + + | Q-T | 442 | ms | [facility] | | | INTERVAL | | | | | + + + + + + | Q-T | 414 | ms | [facility] | | | INTERVAL | | | | | | (CORRECTED) | | | | | + + + + + + | P WAVE AXIS | 57 | degrees | [facility] | | + + + + + + | QRS AXIS | 57 | degrees | [facility] | | + + + + + + | T AXIS | 67 | degrees | [facility] | | + + + + + + | INTERPRETAT | Sinus | | [facility] | | | ION TEXT | bradycardiaPossible Left | | | | | | atrial | | | | | | enlargementBorderline | | | | | | ECGWhen compared with | | | | | | ECG of 16-OCT-2017 | | | | | | 16:23,premature | | | | | | supraventricular | | | | | | complexes are no longer | | | | | | presentNonspecific T | | | | | | wave abnormality no | | | | | | longer evident in | | | | | | Inferior leadsT wave | | | | | | inversion less evident | | | | | | in Anterolateral | | | | | | leadsConfirmed by | | | | | | CHRISTOPHER SIMMS MD | | | | | | ([id number]) on 06/01/2018 | | | | | | 4:18:00 PM | | | | + + [...] + | Diagnosis | + + | TIA Unspecified transient cerebral ischemia | + + | Valvular heart disease Endocarditis, valve unspecified, unspecified cause | + + | Epistaxis | + + | Murmur Undiagnosed cardiac murmurs | + + | Essential hypertension with goal blood pressure less than 130/80 | + + | Coronary artery disease involving [place] coronary artery of [place] heart with unstable | | angina pectoris (HCC) | + + | Chest pain, unspecified type | + + | Hyperlipidemia, mixed Mixed hyperlipidemia | + + documented in this encounter
--- OUTSIDE RECORDS SUMMARY | ~2019-05-18 | XMS | Encounter Summary ---
Demographics + + + | Address | [address] | | | [place] [address] | + + + | Home Phone | | + + + | Preferred Language | Unknown | + + + | Marital Status | | + + + | Presybeterian Affiliation | Unknown | + + + | Race | Unknown | + + + | Ethnic Group | Unknown | + + + Author + + + | Author | [facility] | | | and [place] | + + + | Organization | [facility] | | | and [place] | + + + | Address | Unknown | + + + | Phone | Unavailable | + + + Support + + + + + | Name | Relationship | Address | Phone | + + + + + | Osmin Jackson | ECON | [address] | | | | | [place] [address] | | + + + + + | Hunter [place] | ECON | [place] | | + + + + + | Wes Jackson | ECON | [place], [place] | | + + + + + | Oziel Jackson | ECON | [place], [place] | | + + + + + Care Team Providers + +------+ + | Care Picture Hanger Name | Role | Phone | + +------+ + | Rodolfo Cruz MD | PCP | | + +------+ + Reason for Visit + + + | Reason | Comments | + + + | Follow-up | Right hand and shoulder pain requesting repeat injections | + + + Encounter Details +--------+---------+ + + + | Date | Type | Department | Care Team | Description | +--------+---------+ + + + | 12/30/ | Office | [facility] [place] | Ulysses Jensen, | Rotator cuff | | 2013 | Visit | ORTHOPEDIC SURGERY | MD Danny PARHAM | syndrome (Primary | | | | [address] | [place] | Dx); [facility] | | | | [place] | [address] | | | | | [address] | | | | | | [phone] | | | +--------+---------+ + + + [...] Temperature | 36.4 C (97.6 F) | 05/10/2013 3:27 PM | | | [...] + + + + | Weight | 93.4 kg (206 lb) | 05/10/2013 3:27 PM | | | | | PST | | + + + + + | Height | 167.6 cm (5' 6") | 05/10/2013 3:27 PM | | | | | PST | | + + + + + | Body Mass Index | 33.25 | 05/10/2013 3:27 PM | | | | | PST | | + + + + + documented in this encounter Progress Notes Libra Jaime RN - 05/10/2013 4:11 PM PST-All required supplied/equipment present -All required imaging studies completed -Consent signed and consistent with patient's verbal understand of procedure -Patient identified by Name and Date of -Site verified by member of health care team Timeout complete Libra Jaime Ulysses Monzon MD - 05/10/2013 3:51 PM PSTPt returns and wishes to repeat right shoulder injection and right first cmc injection She states the shoulder injection helped tremendously at first but her symptoms have recurr ed On exam her right shoulder has reasonable RC strength to resisted abduction in scapular mamta ne Negative celi lift off sign After sterile prep the shoulder is injected with 40mg kenalog and 5cc of .5%marcaine in the subacromial space. Pt tolerated with no complications and will return as necessary. If the shoulder is not getting better I would rec MRI to evaluate her cuff Under sterile conditions I injected her first cmc joint with 1/2 cc celestone and 1/2 cc ma rcaine She will let us know how she is doing over time documented in this encounter Plan of Treatment [...] | | | | | | [place] [address] | | | | | | [phone] | | | | | | | | +--------+---------+ + + + documented as of this encounter Visit Diagnoses + + | Diagnosis | + + | Rotator cuff syndrome - Primary Disorders of bursae and tendons in shoulder region, | | unspecified | + + | [facility] arthritis Unspecified arthropathy, hand | + + documented in this encounter Administered Medications + +--------+ +------+------+------+ | Medication Order | MAR | Action | Dose | Rate | Site | | | Action | Date | | | | + +--------+ +------+------+------+ | betamethasone (CELESTONE | Given | 05/10/20 | 3 mg | | | | SOLUSPAN) injection 3 mg 3 mg, | | 13 4:14 | | | | | Intra-articular, ONCE, Mon | | PM PST | | | | | 05/10/13 at 1630, For 1 dose, | | | | | | | Shake well. Not for IV use., | | | | | | + +--------+ +------+------+------+ +---+---+ | | | +---+---+ + +-------+ +-------+---+---+ | bupivacaine (MARCAINE) 0.5% | Given | 05/10/20 | 5 mLs | | | | injection 5 mL 5 mL, | | 13 4:12 | | | | | Infiltration, ONCE, 05/10/13 | | PM PST | | | | | at 1630, For 1 dose | | | | | | + +-------+ +-------+---+---+ +---+---+ | | | +---+---+ + +-------+ +-------+---+---+ | triamcinolone acetonide | Given | 05/10/20 | 40 mg | | | | (KENALOG-40) 40 mg/mL injection | | 13 4:12 | | | | | 40 mg 40 mg, Intra-articular, | | PM PST | | | | | ONCE, 05/10/13 at 1630, For 1 | | | | | | | dose, Shake well. Not for IV | | | | | | | use., | | | | | | + +-------+ +-------+---+---+ +---+---+ | | | +---+---+ documented in this encounter
--- OUTSIDE RECORDS SUMMARY | ~2019-05-18 | XMS | Encounter Summary ---
Demographics + + + | Address | [address] | | | [place] [address] | + + + | Home Phone | | + + + | Preferred Language | Unknown | + + + | Marital Status | | + + + | Church Affiliation | Unknown | + + + | Race | Unknown | + + + | Ethnic Group | Unknown | + + + Author + + + | Author | [facility] | | | and [place] | + + + | Organization | [facility] | | | and [place] | + + + | Address | Unknown | + + + | Phone | Unavailable | + + + Support + + + + + | Name | Relationship | Address | Phone | + + + + + | Osmin [place] | ECON | [address] | | | | | [place] [address] | | + + + + + | Hunter [place] | ECON | [place] | | + + + + + | Wes [place] | ECON | [place], [place] | | + + + + + | Oziel Jackson | ECON | [place], [place] | | + + + + + Care Team Providers + +------+ + | Care Resaw Carriage Operator Name | Role | Phone | + +------+ + PCP | Unavailable | + +------+ + Encounter Details +--------+ + + + + | Date | Type | Department | Care Team | Description | +--------+ + + + + | 01/09/ | Hospital | [facility] | | | | 1998 | Encounter | MED CTR GENERIC OP | | | | | | CONV DEPT [address] | | | | | | [place], | | | | | | [place] [address] | | | | | | [phone] | | | +--------+ + + + [...] 2019 | Visit | | MD Danny [address] | | | | | | [place] | | | | | | [address] | | | | | | | | +--------+---------+ + + + | 11/21/ | Office | Cardiology | Yesi, | | | 2019 | Visit | | JOSE AL[address]ERTO [address] | | | | | | [place] | | | | | | [place] [address] | | | | | | [phone] | | | | | | | | +--------+---------+ + + + documented as of this encounter Visit Diagnoses Not on filedocumented in this encounter"
--- OUTSIDE RECORDS SUMMARY | ~2019-05-18 | XMS | Encounter Summary ---
Demographics + + + | Address | [address] | | | [place] [address] | + + + | Home Phone [...] | Author | [facility] | | | and [place] | + + + | Organization | [facility] | | [...] | | | | | [place] [address] | | + + + + + | [place] | ECON | [place] | | + + + + + | Wes [place] | ECON | [place], [place] | | + + + + + | Oziel [place] | ECON | [place], [place] | | + + + + + Care Team Providers + +------+ + | Care River Pilot Name | Role | Phone | + +------+ + | Rodolfo Cruz MD | PCP | | + +------+ + Reason for Visit + + + | Reason | Comments | + + + | Blood Pressure Check | | | (Screening) | | + + + Encounter Details +--------+ + + + + | Date | Type | Department | Care Team | Description | +--------+ + + + + | 08/06/ | Telephone | [facility] | Yesi, | Blood Pressure Check | | 2015 | | CARDIOLOGY [address] | JOSE AL[address]ERTO [address] | (Screening) | | | | [place], | [place], | | | | | [place] [address] | [place] [address] | | | | | [phone] | [phone] | | | | | | | [...] [place] | | | | | | [address] | | | | | | | | +--------+---------+ + + + | 11/21/ | Office | Cardiology | Yesi, | | | 2019 | Visit | | JOSE ALBERTO [address] | | | | | | [place] | | | | | | [place] [address] | | | | | | [phone] | | | | | | | | +--------+---------+ + + + documented as of this encounter Visit Diagnoses Not on filedocumented in this encounter"
--- OUTSIDE RECORDS SUMMARY | ~2019-05-18 | XMS | Encounter Summary ---
Demographics + + + | Address | [address] | | | [place] [address] | + + + | Home Phone [...] + | Author | [facility] | | | and [place] | + + + | Organization | [facility] | [...] | | | | | [place] [address] | | + + + + + | Hunter [place] | ECON | [place] | | + + + + + | Wes [place] | ECON | [place], [place] | | + + + + + | Oziel [place] | ECON | [place], [place] | | + + + + + Care Team Providers + +------+ + | Care Prescription Clerk Name | Role | Phone | [...] Description | +--------+--------+ + + + | 04/25/ | Refill | [facility] | Rodolfo Cruz, | Medication Refill | | 2013 | | MEDICINE [address] | [address] | | | | | [place] | [place] | | | | | [place] [address] | [address] | | | | | [phone] | | | +--------+--------+ + + + [...] | | | | | | [place] [address] | | | | | | [phone] | | | | | | | | +--------+---------+ + + + documented as of this encounter Visit Diagnoses + + | Diagnosis | + + | Insomnia - Primary Insomnia, unspecified | + + documented in this encounter"
--- OUTSIDE RECORDS SUMMARY | ~2019-05-18 | XMS | Encounter Summary ---
Demographics + + + | Address | [address] | | | [place] [address] | + + + | Home Phone | | + + + | Preferred Language | Unknown | + + + | Marital Status | | + + + | Sikh Affiliation | Unknown | + + + | Race | Unknown | + + + | Ethnic Group | Unknown | + + + Author + + + | Author | [facility] | | | and [place] | + + + | Organization | [facility] | | | and [place] | + + + | Address | Unknown | + + + | Phone | Unavailable | + + + Support + + + + + | Name | Relationship | Address | Phone | + + + + + | Osmin Jackson | ECON | [address] | | | | | [place] [address] | | + + + + + | Hunter Jackson | ECON | [place] | | + + + + + | Wes Jackson | ECON | [place], [place] | | + + + + + | Oziel Jackson | ECON | [place], [place] | | + + + + + Care Team Providers + +------+ + | Care Communications Equipment Installer Name | Role | Phone | + +------+ + | Rodolfo Cruz MD | PCP | | + +------+ + Reason for Visit + + + | Reason | Comments | + + + | Flu Vaccine | | + + + Encounter Details +--------+ + + + + | Date | Type | Department | Care Team | Description | +--------+ + + + + | 04/09/ | Telephone | [facility] | Shahana Rodriguez | Flu Vaccine | | 2011 | | MEDICINE [address] | | | | | [place] | | | | | | [place] [address] | | | | | | [phone] | | | +--------+ + + + [...] | | | | | | [place] [address] | | | | | | [phone] | | | | | | | | +--------+---------+ + + + documented as of this encounter Visit Diagnoses Not on filedocumented in this encounter"
--- OUTSIDE RECORDS SUMMARY | ~2019-05-18 | XMS | Encounter Summary ---
Demographics + + + | Address | [address] | | | [place] [address] | + + + | Home Phone | | + + + | Preferred Language | Unknown | + + + | Marital Status | | + + + | Yazdanism Affiliation | Unknown | + + + | Race | Unknown | + + + | Ethnic Group | Unknown | + + + Author + + + | Author | [facility] | | | and [place] | + + + | Organization | [facility] | | | and [...] | | | | | [place] [address] | | + + + + + | Gisele Jackson | ECON | [place] | | + + + + + | Wes Jackson | ECON | [place], [place] | | + + + + + | Oziel Jackson | ECON | [place], [place] | | + + + + + Care Team Providers + +------+ + | Care Integration Specialist Name | Role | Phone | [...] | Physical | Diagnoses | Morasch, | [address] | | | Services | Therapy | Vertigo | Rodolfo Reilly MD | [place] | | | Required | | Impaired | [address] [facility] | | | | | functional | [address] [place] | [address] | | | | | mobility, | [place] | AVE | | | | | balance, and | [address] | [place] | | | | | endurance | Phone: | [address] | | | | | | [phone] | Phone: | | | | | | Fax: | [phone] | | | | | | [phone] | Fax: | | | | | | | [phone] | +--------+ + + + + + Reason for Visit + + + | Reason | Comments | + + + | Referral | | + + + Encounter Details +--------+ + + + + | Date | Type | Department | Care Team | Description | +--------+ + + + + | 12/13/ | Telephone | [facility] | Rodolfo Cruz, | Referral | | 2015 | | MEDICINE [address] [place] [address] | MD [address] | | | | | [facility] | [facility] | | | | | [place] [address] | [address] | | | | | [phone] | | | +--------+ + + + [...] | | | | | | [place] [address] | | | | | | [phone] | | | | | | | | +--------+---------+ + + + + + +--------+ + + | Name | Type | Priori | Associated Diagnoses | Order Schedule | | | | ty | | | + + +--------+ + + | Ambulatory referral | Outpatient | Routin | Vertigo Impaired | Ordered: 12/14/2015 | | to Physical Therapy | Referral | e | functional mobility, | | | | | | balance, and | | | | | | endurance | | + + +--------+ + + documented as of this encounter Visit Diagnoses + + | Diagnosis | + + | Vertigo - Primary Dizziness and giddiness | + + | Impaired functional mobility, balance, and endurance | + + documented in this encounter"
--- OUTSIDE RECORDS SUMMARY | ~2019-05-18 | XMS | Encounter Summary ---
Demographics + + + | Address | [address] | | | [place] [address] | + + + | Home Phone | | + + + | Preferred Language | Unknown | + + + | Marital Status | | + + + | Advent Affiliation | Unknown | + + + | Race | Unknown | + + + | Ethnic Group | Unknown | + + + Author + + + | Author | [facility] | | | and [place] | + + + | Organization | [facility] | | | and [place] | + + + | Address | Unknown | + + + | Phone | Unavailable | + + + Support + + + + + | Name | Relationship | Address | Phone | + + + + + | Osmin Jackson | ECON | [address] | | | | | [place] [address] | | + + + + + | Hunter Jackson | ECON | [place] | | + + + + + | Wes Jackson | ECON | [place], [place] | | + + + + + | Oziel Jackson | ECON | [place], [place] | | + + + + + Care Team Providers + +------+ + | Care Business Machine Operator Name | Role | Phone [...] Visit | ORTHOPEDIC SURGERY | MD [address] [facility] | syndrome, right | | | | [address] | [place] | (Primary Dx); [facility] | | | | [place] | [address] | arthritis | | | | [address] | | | | | | [phone] | | | +--------+---------+ + + + [...] 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
--- OUTSIDE RECORDS SUMMARY | ~2019-05-18 | XMS | Encounter Summary ---
Demographics + + + | Address | [address] | | | [place] [address] | + + + | Home Phone | | + + + | Preferred Language | Unknown | + + + | Marital Status | | + + + | Adventist Affiliation | Unknown | + + + | Race | Unknown | + + + | Ethnic Group | Unknown | + + + Author + + + | Author | [facility] | | | and [place] | + + + | Organization | [facility] | | | and [...] | | | | | [place] [address] | | + + + + + | Hunter Jackson | ECON | [place], [place] | | + + + + + | Wes Jackson | ECON | [place], [place] | | + + + + + | Oziel Jackson | ECON | [place], [place] | | + + + + + Care Team Providers + +------+ + | Care Kennel Attendant Name | Role | Phone | + +------+ + | Provider Not, In System | PCP | Unavailable | + +------+ + Reason for Visit + + + | Reason | Comments | + + + | Chest Pain | | + + + Encounter Details +--------+ + + + + | Date | Type | Department | Care Team | Description | +--------+ + + + + | 07/08/ | Telephone | [facility] [place] | [place], | Chest Pain | | 2016 | | CARDIOLOGY [address] | JOSE ALBERTO Linder [address] | | | | | [place], | [place], | | | | | [place] [address] | [place] [address] | | | | | [phone] | [phone] | | | | | | | [...] STREET[place] | | | | | | [address] | | | | | | | | +--------+---------+ + + + | 11/21/ | Office | Cardiology | Yesi | | | 2019 | Visit | | JOSE ALBERTO Linder [address] | | | | | | [place] | | | | | | [place] [address] | | | | | | [phone] | | | | | | | | +--------+---------+ + + + documented as of this encounter Visit Diagnoses Not on filedocumented in this encounter"
--- OUTSIDE RECORDS SUMMARY | ~2019-05-18 | XMS | Encounter Summary ---
Demographics + + + | Address | [address] | | | [place] [address] | + + + | Home Phone | | + + + | Preferred Language | Unknown | + + + | Marital Status | | + + + | Samaritan Affiliation | Unknown | + + + | Race | Unknown | + + + | Ethnic Group | Unknown | + + + Author + + + | Author | [facility] | | | and [place] | + + + | Organization | [facility] | | [...] | | | | | [place] [address] | | + + + + + | Hunter Jackson | ECON | [place] | | + + + + + | Wes Jackson | ECON | [place], [place] | | + + + + + | Oziel Jackson | ECON | [place], [place] | | + + + + + Care Team Providers + +------+ + | Care Production Machine Shop Supervisor Name | Role | Phone | + [...] Ct [address] | | | | | Pulmonary | Rodolfo Reilly MD | [address] | | | | | nodules | [address] | [place], | | | | | Bone fibrous | [address] | [place] [address] | | | | | dysplasia | [place], [place] | Phone: | | | | | Procedures | [address] | [phone] | | | | | CT Chest w | Phone: | Fax: | | | | | Contrast | [phone] | [phone] | | | | | 02/16/14 | Fax: | | | | | | | [phone] | | +--------+--------+ + + + + Reason for Visit Diagnostic/Screening (Routine) +--------+--------+ + + + + | Status | Reason | Specialty | Diagnoses / | Referred By | Referred To | | | | | Procedures | Contact | Contact | +--------+--------+ + + + + | Closed | | Radiology | Diagnoses | [place]asch, | [address] | | | | | Pulmonary | Rodolfo Reilly MD | [address] | | | | | nodules | [address] | [place], | | | | | Bone fibrous | [place] | [place] [address] | | | | | dysplasia | [place], [place] | Phone: | | | | | Procedures | [address] | [phone] | | | | | CT Chest w | Phone: | Fax: | | | | | Contrast | [phone] | [phone] | | | | | 02/16/14 | Fax: | | | | | | | [phone] | | +--------+--------+ + + + + Encounter Details +--------+ + + + + | Date | Type | Department | Care Team | Description | +--------+ + + + + | 02/22/ | Hospital | [facility] | Rodolfo Cruz, | Pulmonary nodules; | | 2013 | Encounter | MED CTR [address] | MD [address] | Bone fibrous | | | | [place], | [place], [place] | dysplasia | | | | [place] [address] | [address] | | | | | [phone] | | | +--------+ + + + [...] + +---------+ + + | amLODIPine | TAKE 1 TABLET BY | 90 | 1 | 01/13/20 | | | (NORVASC) 5 mg | MOUTH DAILY | tablet | | 14 | 5 | | tablet | | | | | | + + + +---------+ + + | diclofenac | Apply 1 g topically | | 0 | | | | (VOLTAREN) 1% GEL | Daily as needed. | | | | 5 | + + + +---------+ + + | diphenhydrAMINE | Take 25 mg by mouth | | 0 | 06/04/19 | | | (BENADRYL) 25 MG | as needed. | | | 11 | 5 | | capsule | | | | | | + + + +---------+ + + | fenofibrate | TAKE 1 TABLET BY | 90 | 1 | 01/13/20 | | | (TRICOR) 48 mg | MOUTH DAILY | tablet | | 14 | 5 | | tablet | | | | [...] tablet by | 30 | 0 | 01/26/20 | | | HYDROcodone-acetamin | mouth every [...] one capsule | 90 | 3 | 01/21/20 | | | (PRILOSEC) 20 mg | once daily before | capsule | | 14 | 5 | | capsule | breakfast. | | [...] + + | UNABLE TO FIND | Take 1 tablet by | | 0 | | | | | mouth Daily. Med | | | | 5 | | | Name: Pure absorb | | | | | | | Iron | | | | | + + [...] STREET[place] | | | | | | [address] | | | | | | | | +--------+---------+ + + + | 11/21/ | Office | Cardiology | Yesi, | | | 2019 | Visit | | JOSE ALBERTO Linder [address] | | | | | | [place], | | | | | | [place] [address] | | | | | | [phone] | | | | | | | | +--------+---------+ + + + documented as of this encounter Procedures + +--------+ + + + | Procedure Name | Priori | Date/Time | Associated Diagnosis | Comments | | | ty | | | | + +--------+ + + + | CT CHEST W CONTRAST | Routin | 02/22/2014 | Pulmonary nodules | Results for this | | | e | 2:05 PM | Bone fibrous | procedure are in the | | | | PDT | dysplasia | results section. | + +--------+ + + + documented in this encounter Results CT Chest w Contrast (02/22/2014 2:05 PM PDT) + + | Specimen | + + | | + + + + + | Narrative | Performed At | + + + | ENHANCED CHEST CT 02/22/2014 2:00 PM CLINICAL HISTORY: Follow up | MISCELANIOUS | | bone lesions and pulm nodules COMPARISON: Chest CT November 09, | LAB | | 2013, bone scan November 05, 2013, thoracic MRI October 26, 2013 | | | TECHNIQUE: Axial images are performed through the chest following the | | | uneventful intravenous administration of 75 mL Omnipaque-350 | | | contrast. Multiplanar reformations are also performed. FINDINGS: | | | There is calcified plaque within the thoracic aorta and coronary | | | arteries. The heart appears at least borderline enlarged. A tiny | | | hiatus hernia is present. The mediastinum is otherwise | | | unremarkable. No pathologic lymph node enlargement is visible on | | | the basis of size criteria. There is no pneumothorax or pleural | | | effusion. Previously described small bilateral pulmonary nodules | | | are stable from the study of November 2013, and measure up to 4 mm in the | | | right lung apex on image 13, 7 mm along the course of the right | | | minor fissure on image 58, 6 mm in the right middle lobe on image 81, | | | 6 mm in the right posterior costophrenic sulcus on image 89, 7 mm | | | along the course of the left major fissure on image 68, and 4 mm | | | posteriorly in the left lower lobe on image 80. A new 6 mm nodular | | | opacity is present posteriorly in the right apex on image 26. No | | | other new nodule or consolidation is evident. Minimal dependent | | | density in the lower lobes is consistent with atelectasis. No | | | airway abnormality is visible. There is similar asymmetric | | | sclerosis involving the subarticular aspect of the left humeral head, | | | without cortical contour irregularity. A subtle 1.3 cm rounded | | | region of lucency in the sternal manubrium is similar to previous CT | | | and corresponds with a lesion described on previous MRI. No new | | | lytic or blastic bone lesion is evident. There is leftward thoracic | | | curvature and multilevel spondylosis. Schmorl's nodes are again | | | visible within the inferior T8 and T12 vertebral endplates. Bones, | | | soft tissues and imaged upper abdomen are otherwise unremarkable. | | | IMPRESSION - 1. NEW SMALL NODULAR OPACITY IN THE POSTERIOR RIGHT | | | LUNG APEX COMPARED WITH CT OF NOVEMBER 2013 WITH OTHERWISE STABLE SIZE | | | AND APPEARANCE OF NUMEROUS OTHER SMALL BILATERAL PULMONARY NODULES. | | | CONTINUED CT SURVEILLANCE IS RECOMMENDED IN APPROXIMATELY SIX | | | MONTHS. 2. STABLE NON-SPECIFIC, ASYMMETRIC SCLEROSIS IN THE LEFT | | | HUMERAL HEAD AND ROUNDED LUCENT LESION IN THE STERNAL MANUBRIUM. | | | NO NEW BONE LESION IS EVIDENT. 3. ATHEROSCLEROSIS, SCOLIOSIS | | | AND SPONDYLOSIS. 4. TINY HIATUS HERNIA. Dictated and Signed | | | by: Govind Duran MD Electronically signed: 02/23/2014 7:38 AM | | + + + + + | Procedure Note | + + | [place], Rad Results In - 02/23/2014 7:41 AM PDT ENHANCED CHEST CT 02/22/2014 2:00 PM | | | | CLINICAL HISTORY: Follow up bone lesions and pulm nodules | | | | COMPARISON: Chest CT November 09, 2013, bone scan November 05, 2013, thoracic MRI October | | 2013 | | | | TECHNIQUE: Axial images are performed through the chest following the uneventful | | intravenous administration of 75 mL Omnipaque-350 contrast. Multiplanar | | reformations are also performed. | | | | FINDINGS: There is calcified plaque within the thoracic aorta and coronary | | arteries. The heart appears at least borderline enlarged. A tiny hiatus hernia | | is present. The mediastinum is otherwise unremarkable. No pathologic lymph | | node enlargement is visible on the basis of size criteria. There is no | | pneumothorax or pleural effusion. | | | | Previously described small bilateral pulmonary nodules are stable from the study | | of November 2013, and measure up to 4 mm in the right lung apex on image 13, 7 mm | | along the course of the right minor fissure on image 58, 6 mm in the right | | middle lobe on image 81, 6 mm in the right posterior costophrenic sulcus on | | image 89, 7 mm along the course of the left major fissure on image 68, and 4 mm | | posteriorly in the left lower lobe on image 80. A new 6 mm nodular opacity is | | present posteriorly in the right apex on image 26. No other new nodule or | | consolidation is evident. Minimal dependent density in the lower lobes is | | consistent with atelectasis. No airway abnormality is visible. | | | | There is similar asymmetric sclerosis involving the subarticular aspect of the | | left humeral head, without cortical contour irregularity. A subtle 1.3 cm | | rounded region of lucency in the sternal manubrium is similar to previous CT and | | corresponds with a lesion described on previous MRI. No new lytic or blastic | | bone lesion is evident. There is leftward thoracic curvature and multilevel | | spondylosis. Schmorl's nodes are again visible within the inferior T8 and T12 | | vertebral endplates. Bones, soft tissues and imaged upper abdomen are otherwise | | unremarkable. | | | | IMPRESSION - | | 1. NEW SMALL NODULAR OPACITY IN THE POSTERIOR RIGHT LUNG APEX COMPARED WITH CT | | OF NOVEMBER 2013 WITH OTHERWISE STABLE SIZE AND APPEARANCE OF NUMEROUS OTHER SMALL | | BILATERAL PULMONARY NODULES. CONTINUED CT SURVEILLANCE IS RECOMMENDED IN | | APPROXIMATELY SIX MONTHS. | | | | 2. STABLE NON-SPECIFIC, ASYMMETRIC SCLEROSIS IN THE LEFT HUMERAL HEAD AND | | ROUNDED LUCENT LESION IN THE STERNAL MANUBRIUM. NO NEW BONE LESION IS EVIDENT. | | | | 3. ATHEROSCLEROSIS, SCOLIOSIS AND SPONDYLOSIS. | | | | 4. TINY HIATUS HERNIA. 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
--- OUTSIDE RECORDS SUMMARY | ~2019-05-18 | XMS | Encounter Summary ---
Demographics + + + | Address | [address] | | | [place] [address] | + + + | Home Phone | | + + + | Preferred Language | Unknown | + + + | Marital Status | | + + + | Restorationist Affiliation | Unknown | + + + | Race | Unknown | + + + | Ethnic Group | Unknown | + + + Author + + + | Author | [facility] | | | and [place] | + + + | Organization | [facility] | | | and [...] | | | | | [place] [address] | | + + + + + | Hunter Jackson | ECON | [place] | | + + + + + | Wes Jackson | ECON | [place], [place] | | + + + + + | Oziel Jackson | ECON | [place], [place] | | + + + + + Care Team Providers + +------+ + | Care Runway Model Name | Role | Phone | + [...] Heart | MD Irina | [address] | | | | | murmur | [address] | [place], | | | | | Procedures | [address] | [place] | | | | | ECHO | [place], | [address] | | | | | Complete [place] | [place] [address] | Phone: | | | | | ECHO HEART | Phone: | [phone] | | | | | [place] | [phone] | Fax: | | | | | [address] | Fax: | [phone] | | | | | [place] | [phone] | | | | | | ECHO [...] Required | | hypertension | [address] [facility] | [address] | | | | | | [address] [place] | [address] | | | | | | [place], [place] | [place], | | | | | | [address] | [place] [address] | | | | | | Phone: | Phone: | | | | | | [phone] | [phone] | | | | | | Fax: | Fax: | | | | | | [phone] | [phone] | +--------+ + + + + + Encounter Details +--------+---------+ + + + | Date | Type | Department | Care Team | Description | +--------+---------+ + + + | 10/17/ | Office | [facility] | Irina Simms, | Essential | | 2015 | Visit | CARDIOLOGY [address] | [address] | hypertension | | | | [address] [place], | [place], | (Primary Dx); [place] | | | | [place] [address] | [place] [address] | murmur | | | | [phone] | [phone] | | | | | | | [...] attending water aerobic program in an attendant, [place]. She cannot walk far due to her chronic back pain . Patient also enjoys jew activity. 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 There is [...] murmur. Electronically signed by: Irina Simms MD [facility] 10/17/2014 Portions of this chart may have been created with [employer] voice recognition software. Occasi onal wrong-word or [...] | | | | | | [place] [address] | | | | | | [phone] | | | | | | | [...] Performed At | + + + | [facility] ECHOCARDIOGRAM REPORT | MAYER | | STUDY DATE: 10/25/2014 PATIENT NAME: Soumya Jackson : | [facility] | | 1935 PCP: Rodolfo Cruz MD CLINICAL | [facility] | | HISTORY/DIAGNOSIS: MURMUR A transthoracic echocardiogram [...] by: | | | Irina Simms MD [facility] 10/25/2014 11:39 | | | Client Services Administrator: Samm Caceres, RDCS, RVT, RDMS | | + + + + + + + + | Performing | Address | City/State/Zipcode | Phone Number | | Organization | | | | + + + + + | [facility] | [address] | [place], [place] | [phone] | | [facility] | | [address] | | | - IMAGING | | [...]
--- OUTSIDE RECORDS SUMMARY | ~2019-05-18 | XMS | Encounter Summary ---
Demographics + + + | Address | [address] | | | [place] [address] | + + + | Home Phone | | + + + | Preferred Language | Unknown | + + + | Marital Status | | + + + | Samaritan Affiliation | Unknown | + + + | Race | Unknown | + + + | Ethnic Group | Unknown | + + + Author + + + | Author | [facility] | | | and [place] | + + + | Organization | [facility] | | | and [place] | + + + | Address | Unknown | + + + | Phone | Unavailable | + + + Support + + + + + | Name | Relationship | Address | Phone | + + + + + | Osmin Jackson | ECON | [address] | | | | | [place] [address] | | + + + + + | Hunter Jackson | ECON | [place] | | + + + + + | Wes Jackson | ECON | [place], [place] | | + + + + + | Oziel Jackson | ECON | [place], [place] | | + + + + + Care Team Providers + +------+ + | Care Crew Scheduler Name | Role | Phone | + [...] | +--------+ + + + + | 10/30/ | Telephone | [facility] | Rodolfo Cruz, | Back Pain | | 2016 | | MEDICINE [address] [place] [address] | MD [address] | | | | | [place] | [place] | | | | | [place] [address] | [address] | | | | | [phone] | | | +--------+ + + + [...] STREETER | | | | | | [address] | | | | | | | | +--------+---------+ + + + | 11/21/ | Office | Cardiology | Yesi | | | 2019 | Visit | | JOSE ALBERTO Linder [address] | | | | | | [place] | | | | | | [place] [address] | | | | | | [phone] | | | | | | | | +--------+---------+ + + + documented as of this encounter Visit Diagnoses Not on filedocumented in this encounter"
--- OUTSIDE RECORDS SUMMARY | ~2019-05-18 | XMS | Encounter Summary ---
Demographics + + + | Address | [address] | | | [place] [address] | + + + | Home Phone | | + + + | Preferred Language | Unknown | + + + | Marital Status | | + + + | Congregational Affiliation | Unknown | + + + | Race | Unknown | + + + | Ethnic Group | Unknown | + + + Author + + + | Author | [facility] | | | and [place] | + + + | Organization | [facility] | | | and [place] | + + + | Address | Unknown | + + + | Phone | Unavailable | + + + Support + + + + + | Name | Relationship | Address | Phone | + + + + + | Osmin Jackson | ECON | [address] | | | | | [place] [address] | | + + + + + | Hunter Jackson | ECON | [place] | | + + + + + | Wes Jackson | ECON | [place], [place] | | + + + + + | Oziel Jackson | ECON | [place], [place] | | + + + + + Care Team Providers + +------+ + | Care Clinical Rn Liaison Name | Role | Phone | + [...] Description | +--------+--------+ + + + | 04/23/ | Refill | [facility] | Rodolfo Cruz, | Medication Refill | | 2013 | | [facility] [place] | [address] | | | | | [address] | [place] | | | | | [place] | [address] | | | | | [address] | | | | | | [phone] | | | +--------+--------+ + + + [...] | | | | | | [place] [address] | | | | | | [phone] | | | | | | | | +--------+---------+ + + + documented as of this encounter Visit Diagnoses Not on filedocumented in this encounter"
--- OUTSIDE RECORDS SUMMARY | ~2019-05-18 | XMS | Encounter Summary ---
Demographics + + + | Address | [address] | | | [place] [address] | + + + | Home Phone | | + + + | Preferred Language | Unknown | + + + | Marital Status | | + + + | Protestant Affiliation | Unknown | + + + | Race | Unknown | + + + | Ethnic Group | Unknown | + + + Author + + + | Author | [facility] | | | and [place] | + + + | Organization | [facility] | | | and [place] | + + + | Address | Unknown | + + + | Phone | Unavailable | + + + Support + + + + + | Name | Relationship | Address | Phone | + + + + + | Osmin Jackson | ECON | [address] | | | | | [place] [address] | | + + + + + | Hunter Jackson | ECON | [place] | | + + + + + | Wes Jackson | ECON | [place], [place] | | + + + + + | Oziel Jackson | ECON | [place], [place] | | + + + + + Care Team Providers + +------+ + | Care Associate Professor Of Education Name | Role | Phone | + [...] Description | +--------+--------+ + + + | 12/11/ | Refill | [facility] | Rodolfo Cruz, | Medication Refill | | 2016 | | MEDICINE [address] | [address] | | | | | [place] | [place] | | | | | [place] [address] | [address] | | | | | [phone] | | | +--------+--------+ + + + [...] | | | | | | [place] [address] | | | | | | [phone] | | | | | | | | +--------+---------+ + + + documented as of this encounter Visit Diagnoses Not on filedocumented in this encounter"
--- OUTSIDE RECORDS SUMMARY | ~2019-05-18 | XMS | Encounter Summary ---
Demographics + + + | Address | [address] | | | [place] [address] | + + + | Home Phone [...] Author | [facility] | | | and [place] | + + + | Organization | [facility] | | | and [place] | + + + | Address | Unknown | + + + | Phone | Unavailable | + + + Support + + + + + | Name | Relationship | Address | Phone | + + + + + | Omsin Jackson | ECON | [address] | | | | | [place] [address] | | + + + + + | Hunter Jackson | ECON | [place] | | + + + + + | Wes Jackson | ECON | [place], [place] | | + + + + + | Oziel Jackson | ECON | [place], [place] | | + + + + + Care Team Providers + +------+ + | Care Dry Sander Name | Role | Phone | + [...] | | | | | | | [address] | | | | | | | Phone: | | | | | | | [phone] | | | | | | | Fax: | | | | | | | [phone] | | +--------+ + + + + + Reason for Visit + + + | Reason | Comments | + + + | Referral | PT in [place] | + + + Encounter Details +--------+ + + + + | Date | Type | Department | Care Team | Description | +--------+ + + + + | 10/17/ | Telephone | [facility] | Rodolfo Cruz, | Referral (PT in | | 2015 | | MEDICINE [address] | MD Raya RASHID | [place]) | | | | [facility] | [place], [place] | | | | | [place] [address] | [address] | | | | | [phone] | | | +--------+ + + + [...] | | | | | | [place] [address] | | | | | | [phone] | | | | | | | [...]
--- OUTSIDE RECORDS SUMMARY | ~2019-05-18 | XMS | Encounter Summary ---
Demographics + + + | Address | [address] | | | [place] [address] | + + + | Home Phone [...] | Author | [facility] | | | and [place] | + + + | Organization | [facility] | | | and [place] | + + + | Address | Unknown | + + + | Phone | Unavailable | + + + Support + + + + + | Name | Relationship | Address | Phone | + + + + + | Osmin Jackson | ECON | [address] | | | | | [place] [address] | | + + + + + | Hunter Jackson | ECON | [place] | | + + + + + | Wes Jackson | ECON | [place], [place] | | + + + + + | Oziel Jackson | ECON | [place], [place] | | + + + + + Care Team Providers + +------+ + | Care Process Design Engineer Name | Role | Phone | + +------+ + | Rodolfo Cruz MD | PCP | | + +------+ + Reason for Visit + + + | Reason | Comments | + + + | Follow-up | right shoulder pain wants injection | + + + Encounter Details +--------+---------+ + + + | Date | Type | Department | Care Team | Description | +--------+---------+ + + + | 05/19/ | Office | [facility] | Ulysses Jensen, | Primary | | 2014 | Visit | ORTHOPEDIC SURGERY | MD Danny PARHAM | osteoarthritis of | | | | [address] [facility] | [place] [address] | right shoulder | | | | [place] | [address] | (Primary Dx) | | | | [address] | | | | | | [phone] | | | +--------+---------+ + + + [...] Temperature | 36.4 C (97.6 F) | 05/19/2014 10:39 AM | | | | | PST [...] + + + + | Weight | 86.6 kg (191 lb) | 05/19/2014 10:39 AM | | | | | PST | | + + + + + | Height | 167.6 cm (5' 6") | 05/19/2014 10:39 AM | | | | | PST | | + + + + + | Body Mass Index | 30.83 | 05/19/2014 10:39 AM | | | | | PST | | + + + + + documented in this encounter Progress Notes Ulysses Jensen MD - 05/20/2014 3:47 PM PSTUnder sterile conditions I injected her right shoulder from posterior portal into the glenohumeral joint with kenalog 40mg and 3cc reno issa No complications docum ented in this encounter Plan of Treatment +--------+---------+ + + + | Date | Type | Specialty | Care Team | Description | +--------+---------+ + + + | 06/02/ | Office | Orthopedic Surgery | Ulysses Jensen, | | | 2019 | Visit | | MD [address] | | | | | | [place] | | | | | | [id number] | | | | | | | | +--------+---------+ + + + | 11/21/ | Office | Cardiology | Yesi, | | | 2019 | Visit | | JOSE ALBERTO [address]inder [address] | | | | | | [place], | | | | | | [place] [address] | | | | | | [phone] | | | | | | | | +--------+---------+ + + + documented as of this encounter Visit Diagnoses + + | Diagnosis | + + | Primary osteoarthritis of right shoulder - Primary Primary localized osteoarthrosis, | | shoulder region | + + documented in this encounter
--- OUTSIDE RECORDS SUMMARY | ~2019-05-18 | XMS | Encounter Summary ---
Demographics + + + | Address | [address] | | | [place] [address] | + + + | Home Phone [...] | Author | [facility] | | | and [place] | + + + | Organization | [facility] | | | and [place] | + + + | Address | Unknown | + + + | Phone | Unavailable | + + + Support + + + + + | Name | Relationship | Address | Phone | + + + + + | Osmin Jackson | ECON | [address] | | | | | [place] [address] | | + + + + + | Hunter Jackson | ECON | [place] | | + + + + + | Wes Jackson | ECON | [place], [place] | | + + + + + | Oziel Jackson | ECON | [place], [place] | | + + + + + Care Team Providers + +------+ + | Care Limerock Tower Loader Name | Role | Phone | + [...] | Physical | Diagnoses | [place], | Do Not Use | | | Services | Therapy | Vertigo | Rodolfo Reilly MD | - [facility] | | | Required | | | [address] | [address] | | | | [address] [place] | [place], | | | | | | [place] | [place] | | | | | | [address] | [address] | | | | | | Phone: | Phone: | | | | | | [phone] | [phone] | | | | | | Fax: | Fax: | | | | | | [phone] | [phone] | +--------+ + + + + + Encounter Details +--------+ + + + + | Date | Type | Department | Care Team | Description | +--------+ + + + + | 09/24/ | Orders Only | [facility] | Rodolfo Cruz, | Vertigo (Primary Dx) | | 2012 | | SURGERY [address] | [address] | | | | | [place], [place] | [place], [place] | | | | | [address] | [address] | | | | | [phone] | | | +--------+ + + + [...] | | | | | [place], [place] | | | | | | [address] | | | | | | | | +--------+---------+ + + + | 11/21/ | Office | Cardiology | Yesi, | | | 2019 | Visit | | JOSE ALBERTO Linder [address] | | | | | | [address], | | | | | | [place] [address] | | | | | | [phone] | | | | | | | | +--------+---------+ + + + + + +--------+ + + | Name | Type | Priori | Associated Diagnoses | Order Schedule | | | | ty | | | + + +--------+ + + | Ambulatory referral | Outpatient | Routin | Vertigo | 1 Occurrences | | to Physical Therapy | Referral | e | | starting 09/24/2012 | | | | | | until 09/24/2013 | + + +--------+ + + documented as of this encounter Visit Diagnoses + + | Diagnosis | + + | Vertigo - Primary Dizziness and giddiness | + + documented in this encounter"
--- OUTSIDE RECORDS SUMMARY | ~2019-05-18 | XMS | Encounter Summary ---
Demographics + + + | Address | [address] | | | [place] [address] | + + + | Home Phone | | + + + | Preferred Language | Unknown | + + + | Marital Status | | + + + | Zoroastrianism Affiliation | Unknown | + + + | Race | Unknown | + + + | Ethnic Group | Unknown | + + + Author + + + | Author | [facility] | | | and [place] | + + + | Organization | [facility] | | | and [...] | | | | | [place] [address] | | + + + + + | Hunter Jackson | ECON | [place] | | + + + + + | Wes Jackson | ECON | [employer], [place] | | + + + + + | Oziel Jackson | ECON | [place], [place] | | + + + + + Care Team Providers + +------+ + | Care Plate Gauger Name | Role | Phone | + +------+ + | Rodolfo Cruz MD | PCP | | + +------+ + Reason for Visit + + + | Reason | Comments | + + + | ED Follow-up | | + + + | Back Pain | | + + + Encounter Details +--------+---------+ + + + | Date | Type | Department | Care Team | Description | +--------+---------+ + + + | 11/06/ | Office | [facility] | Rodolfo Cruz, | Hives of unknown | | 2016 | Visit | MEDICINE [address] | [address] | origin (Primary Dx); | | | | [address] | [place] [address] | Stress reaction; | | | | [place] [address] | [address] | Hyperglycemia; Pain | | | | [phone] | | | +--------+---------+ + + + [...] + + + | Blood Pressure | 110/60 | 11/07/2015 12:38 PM | | | | | PDT | | + + + + + | Pulse | 72 | 11/07/2015 12:38 PM | | | | | PDT | | + + + + + | Temperature | 36.2 C (97.2 F) | 11/07/2015 12:38 PM | | | | | PDT | | + + + + + | Respiratory Rate | 16 | 11/07/2015 12:38 PM | | | | | PDT | | + + + + + | Oxygen Saturation | 98% | 11/07/2015 12:38 PM | | | | | PDT | | + + + + + | Inhaled Oxygen | - | - | | | Concentration | | | | + + + + + | Weight | 83.5 kg (184 lb) | 11/07/2015 12:38 PM | | | | | PDT | | + + + + + | Height | 162.6 cm (5' 4") | 11/07/2015 12:38 PM | | | | | PDT | | + + + + + | Body Mass Index | 31.58 | 11/07/2015 12:38 PM | | | | | PDT | | + + + + + documented in this encounter Progress Notes Rodolfo Cruz MD - 11/07/2015 12:51 PM PDTFormatting of this note might be different f rom the original. Subjective: Patient ID: Soumya Jackson is a 80 y.o. female. HPI Recent episode or hot chills, Itchy welts, Numbness more than the usual. No energy. Wi th ER visit in [place] last week. This is persisting except for the welts. "I'm stressed " There is some vertigo with this at time. Waking up off and on Through the night. Has a daily rest. There is no complaint of SOB or SOB. She was also shaky and this comes before and after meals. Review of Systems Objective: Physical Exam Heent, WNL, No carotid bruit Chest CTAB Heart RR&R /s M Abd S,NT,ND,BS+ Ext, no CCor E Neuro Non-focal Lymph, no cervical, axillary, inguinal adenopathy Musculoskeletal, no gross deformity or loss or range of motion Skin, no gross lesions Assessment: 1. Hives of unknown origin CBC with Differential Comprehensive Metabolic Panel Sedimentation Rate Urinalysis with Microscopic if Indicated 2. Stress reaction Plan: I am not sure what this represents. It seems like a stress reaction. RTC prn worsening symptoms. She could get her labs done today, Monitor glucose when symptomatic. 25min was spent with the patient of [...] | Visit | | MD Danny PARHAM | | | | | | [place] | | | | | | [address] | | | | | | | | +--------+---------+ + + + | 11/21/ | Office | Cardiology | Yesi, | | | 2019 | Visit | | JOSE ALBERTO Linder [address] | | | | | | [place] | | | | | | [place] [address] | | | | | | [phone] | | | | | | | | +--------+---------+ + + + documented as of this encounter Results Urinalysis with Microscopic if [...] - 1.030 | [facility] | | | [facility] | | | [facility] | | [...] not indicated. | [facility] | [facility] | | | - LABORATORY | + + + + + + + + | Performing | Address | City/State/Zipcode | Phone Number | | Organization | | | | + + + + + | [facility] | [address] | [place] | [phone] | | [facility] | | [address] | | | - LABORATORY | | [...] | + + + + + | [facility] | [address] | [place], [place] | [phone] | | [facility] | | [address] | | | - LABORATORY | | [...] | | | | | mg/dL | [facility] | | | | | | MEDICAL | | | | | | CENTER - | | | | | | LABORATORY | | + + + + + + | eGFR if not | >60Comment: GLOMERULAR | >=60 | [facility] | | | | FILTRATION | mL/min/1.73m2 | [facility] | | | IRAQI | RATE,ESTIMATED | | MEDICAL | | | | mL/min/1.71x9Zgbk than | | CENTER - | | [...] | | | | | mg/dL | [facility] | | | | | | MEDICAL [...] + | [facility] | [address] | [place] | [phone] | | [facility] | | [address] | | | - LABORATORY | | [...] + + + + + | [facility] | [address] | [place] | [phone] | | [facility] | | [address] | | | - LABORATORY | | | | + + + + + documented in this encounter Visit Diagnoses + + | Diagnosis | + + | Hives of unknown origin - Primary | + + | Stress reaction Other acute reactions to stress | + + | Hyperglycemia Other abnormal glucose | + + | Pain Generalized pain | + + documented in this encounter
--- OUTSIDE RECORDS SUMMARY | ~2019-05-18 | XMS | Encounter Summary ---
Demographics + + + | Address | [address] | | | [place] [address] | + + + | Home Phone | | + + + | Preferred Language | Unknown | + + + | Marital Status | | + + + | Pentecostalism Affiliation | Unknown | + + + | Race | Unknown | + + + | Ethnic Group | Unknown | + + + Author + + + | Author | [facility] | | | and [place] | + + + | Organization | [facility] | | | [...] | | | | | [place] [address] | | + + + + + | Hunter Jackson | ECON | [place] | | + + + + + | Wes Jackson | ECON | [place], [place] | | + + + + + | Oziel Jackson | ECON | [place], [place] | | + + + + + Care Team Providers + +------+ + | Care Land Commissioner Name | Role | Phone | + +------+ + | Rodolfo Cruz MD | PCP | | + +------+ + Encounter Details +--------+ + + + + | Date | Type | Department | Care Team | Description | +--------+ + + + + | 09/03/ | Hospital | [facility] | Rodolfo Cruz, | Hypertension | | 2012 | Encounter | [facility] | MD Raya RASHID | | | | | [address] | [place] [address] | | | | | [place] | [address] | | | | | [address] | | | | | | [phone] | | | +--------+ + + + [...] TAKE 1 TABLET BY | 90 | 3 | 07/12/19 | | | (NORVASC) 5 mg | MOUTH EVERY DAY | tablet | | 13 | 4 | | tablet | | [...] +---------+ + + | diclofenac | Take 1 tablet by | 180 | 1 | 09/04/19 | | | (VOLTAREN) 75 mg EC | mouth 2 times daily. | tablet | | 13 | 3 | | tabletIndications: | | | | [...] TABLET BY | 90 | 1 | 07/12/19 | | | (TRICOR) 48 mg | MOUTH EVERY DAY | tablet | | 13 | 3 | | tablet | | [...] metoprolol | Take 1 tablet by | 45 | 1 | 09/04/19 | | | succinate (TOPROL | mouth Daily. Taking | tablet | | 13 | 3 | | XL) 50 mg 24 hr | 1/ tab daily | | | | | | tabletIndications: [...] documented as of this encounter Progress Notes Rodolfo Cruz MD - 09/15/2012 3:44 PM PDT Quick Note: Ok for ma to notify pt that labs are essentially normal. documented in thi s encounter Plan of Treatment +--------+---------+ + + [...] | | | | | | [place] [address] | | | | | | [phone] | | | | | | | | +--------+---------+ + + + documented as of this encounter Procedures + +--------+ + + + | Procedure Name | Priori | Date/Time | Associated Diagnosis | Comments | | | ty | | | | + +--------+ + + + | URINALYSIS WITH | Routin | 09/03/2012 | | Results for this | | MICROSCOPIC IF | e | 3:54 PM | | procedure are in the | | INDICATED | | PDT | | results section. | + +--------+ + + + | CBC WITH | Routin | 09/03/2012 | | Results for this | | DIFFERENTIAL | e | 3:53 PM | | procedure are in the | | | | PDT | | results section. | + +--------+ + + + | COMPREHENSIVE | Routin | 09/03/2012 | | Results for this | | METABOLIC PANEL | e | 3:53 PM | | procedure are in the | | | | PDT | | results section. | + +--------+ + + + | CBC WITH | Routin | 09/03/2012 | Hypertension | Results for this | | DIFFERENTIAL | e | 3:43 PM | | procedure are in the | | | | PDT | | results section. | + +--------+ + + + | COMPREHENSIVE | Routin | 09/03/2012 | Hypertension | Results for this | | METABOLIC PANEL | e | 3:43 PM | | procedure are in the | | | | PDT | | results section. | + +--------+ + + + | URINALYSIS WITH | Routin | 09/03/2012 | Hypertension | Results for this | | MICROSCOPIC IF | e | 3:30 PM | | procedure are in the | | INDICATED | | PDT | | results section. | + +--------+ + + + documented in this encounter Results Urinalysis with Microscopic if Indicated (09/03/2012 3:54 PM PDT) + + + + + + | Component | Value | Ref Range | Performed | Pathologist | | | | | At | Signature | + + + + + + | COLLECTION | . | | [facility] | | | [facility] | | | [facility] | | | | | | [facility] | | | | | | [facility] - | | | | | | LABORATORY | | + + + + + + | Color, | YELLOW | | [facility] | | | Urine | | | [facility] | | | | | | [facility] | | | | | | [facility] - | | | | | | LABORATORY | | + + + + + + | Clarity | CLEAR | | [facility] | | | | | | [facility] | | | | | | [facility] | | | | | | [facility] - | | | | | | LABORATORY | | + + + + + + | Glucose, | NEGATIVE | NEGATIVE mg/dL | [facility] | | | Urine | | | [facility] | | | | | | [facility] | | | | | | [facility] - | | | | | | LABORATORY | | + + + + + + | Bilirubin, | NEGATIVE | NEGATIVE | [facility] | | | Urine | | | [facility] | | | | | | [facility] | | | | | | [facility] - | | | | | | LABORATORY | | + + + + + + | Ketones, | NEGATIVE | NEGATIVE | [facility] | | | Urine | | | [facility] | | | | | | [facility]ICAL | | | | | | CENTER - | | | | | | LABORATORY | | + + + + + + | Specific | >=1.030 | 1.001 - 1.030 | [facility] | | | [place] | | | [facility] | | | | | | MEDICAL | | | | | | CENTER - | | | | | | LABORATORY | | + + + + + + | Blood, | NEGATIVE | NEGATIVE | [facility] | | | Urine | | | [facility] | | | | | | [facility] | | | | | | CENTER - | | | | | | LABORATORY | | + + + + + + | pH, Urine | 5.5 | 5.0 - 8.0 | [facility] | | | | | | [facility] | | | | | | [facility] | | | | | | CENTER - | | | | | | LABORATORY | | + + + + + + | Protein, | NEGATIVE | NEGATIVE mg/dL | [facility] | | | Urine | | | [facility] | | | | | | [facility]ICAL | | | | | | CENTER - | | | | | | LABORATORY | | + + + + + + | Urobilinoge | NORMAL | NORMAL EU/dL | [facility] | | | n, Urine | | | [facility] | | | | | | MEDICAL | | | | | | CENTER - | | | | | | LABORATORY | | + + + + + + | Nitrite, | NEGATIVE | NEGATIVE | [facility] | | | Urine | | | [facility] | | | | | | MEDICAL | | | | | | CENTER - | | | | | | LABORATORY | | + + + + + + | Leukocyte | NEGATIVE | NEGATIVE | [facility] | | | Esterase, | | | [facility] | | | Urine | | | MEDICAL | | | | | | CENTER - | | | | | | LABORATORY | | + + + + + + | MICROSCOPIC | NO | | [facility] | | | ? | | | [facility] | | [...] + | [facility] | [address] | [place] | [phone] | | [facility] | | [address] | | | - LABORATORY | | | | + + + + + | [facility] | [address] | [place] | | | [facility] | | [address] | | | - LABORATORY | | | | + + + + + CBC with Differential (09/03/2012 3:53 PM PDT) + + + + + + | Component | Value | Ref Range | Performed | Pathologist | | | | | At | Signature | + + + + + + | MANUAL | NO | | [facility] | | | DIFFERENTIA | | | [facility] | | | L ? | | | MEDICAL | | | | | | CENTER - | | | | | | LABORATORY | | + + + + + + | WBC | 9.3 | 4.0 - 11.0 K/uL | [facility] | | | | | | [facility] | | | | | | MEDICAL | | | | | | CENTER - | | | | | | LABORATORY | | + + + + + + | RBC | 4.02 | 3.70 - 5.20 | [facility] | | | | | M/uL | [facility] | | | | | | MEDICAL | | | | | | CENTER - | | | | | | LABORATORY | | + + + + + + | Hemoglobin | 13.3 | 11.5 - 16.0 | [facility] | | | | | gm/dL | [facility] | | | | | | MEDICAL | | | | | | CENTER - | | | | | | LABORATORY | | + + + + + + | Hematocrit | 40.7 | 34.0 - 47.0 % | [facility] | | | | | | [facility] | | | | | | [facility] | | | | | | CENTER - | | | | | | LABORATORY | | + + + + + + | MCV | 101.2 (H) | 83.0 - 101.0 fL | [facility] | | | | | | [facility] | | | | | | [facility]ICAL | | | | | | CENTER - | | | | | | LABORATORY | | + + + + + + | MCH | 33.2 | 28.0 - 35.0 pg | [facility] [...] + + + + | RDW-CV | 13.6 | <15.0 % | [facility] | | | | | | [facility] | | | | | | MEDICAL | | | | | | CENTER - | | | | | | LABORATORY | | + + + + + + | Platelet | 336 | 140 - 440 K/uL | [facility] | | | Count | | | [facility] | | | | | | MEDICAL | | | | | | CENTER - | | | | | | LABORATORY | | + + + + + + | % | 66.4 | 45 - 75 % | [facility] | | | Neutrophils | | | [facility] | | | | | | MEDICAL | | | | | | CENTER - | | | | | | LABORATORY | | + + + + + + | % | 21.4 | 20 - 45 % | [facility] | | | Lymphocytes | | | [facility] | | | | | | MEDICAL | | | | | | CENTER - | | | | | | LABORATORY | | + + + + + + | % Monocytes | 8.6 | 4 - 12 % | [facility] [...] + | % Basophils | 0.6 | 0 - 1 % | [facility] | | | | | | [facility] | | | | | | [facility]ICAL | | | | | | CENTER - | | | | | | LABORATORY | | + + + + + + | Absolute | 6.2 | 1.5 - 6.6 K/uL | [facility] | | | Neutrophils | | | [facility] | | | | | | MEDICAL | | | | | | CENTER - | | | | | | LABORATORY | | + + + + + + | Absolute | 2.0 | 0.6 - 3.2 K/uL | [facility] | | | Lymphocytes | | | [facility] | | | | | | MEDICAL | | | | | | CENTER - | | | | | | LABORATORY | | + + + + + + | Absolute | 0.8 | 0.0 - 1.0 K/uL | [facility] [...] + | [facility] | [address] | [place] | [phone] | | [facility] | | [address] | | | - LABORATORY | | | | + + + + + | [facility] | [address] | [place] | | | [facility] | | [address] | | | - LABORATORY | | | | + + + + + Comprehensive Metabolic Panel (09/03/2012 3:53 PM PDT) + + + + + [...] Alkaline | 63 | 40 - 110 IU/L | [facility] | | | Phosphatase | | | [facility] | | | | | | MEDICAL | | | | | | CENTER - | | | | | | LABORATORY | | + + + + + + | AST | 22 | 10 - 42 IU/L | [facility] | | | | | | [facility] | | | | | | MEDICAL | | | | | | CENTER - | | | | | | LABORATORY | | + + + + + + | ALT | 17 | 6 - 45 IU/L | [facility] [...] + + + + | Total | 7.4 | 6.0 - 7.8 gm/dL | [facility] | | | Protein | | | [facility] | | | | | | MEDICAL | | | | | | CENTER - | | | | | | LABORATORY | | + + + + + + | Albumin | 3.6 | 3.2 - 5.0 gm/dL | [facility] | | | | | | [facility] | | | | | | MEDICAL | | | | | | CENTER - | | | | | | LABORATORY | | + + + + + + | BUN | 19 (H) | 7 - 18 mg/dL | [facility] | | | | [facility] | [facility] | [facility] | [facility] | | | | | | C[facility] - | | | | | | LABORATORY | | + + + + + + | Creatinine | 0.91 | 0.60 - 1.30 | [facility] | | | | | mg/dL | [facility] | | | | | | MEDICAL | | | | | | CENTER - | | | | | | LABORATORY | | + + + + + + | Estimated | 60Comment: For | >60 mL/min/A | [facility] | | | GFR | -Americans, | | [facility] | | | | please multiply the [...] + + + + | BUN/Creatin | 20.9 (H) | 12 - 20 | [facility] | [...] + + + + | K | 3.5 | 3.5 - 5.1 mEq/l | [facility] | | | | | | [facility] | | | | | | MEDICAL | | | | | | CENTER - | | | | | | LABORATORY | | + + + + + + | Cl | 99 | 98 - 109 mEq/l | [facility] | | | | | | [facility] | | | | | | MEDICAL | | | | | | CENTER - | | | | | | LABORATORY | | + + + + + + | CO2 | 30 | 24 - 31 mEq/L | [facility] | | | | | | [facility] | | | | | | MEDICAL | | | | | | CENTER - | | | | | | LABORATORY | | + + + + + + | Anion Gap | 11.5 | 6.0 - 17.0 | [facility] | [...] [address] | [place] | [phone] | | [facility] | | [address] | | | - LABORATORY | | | | + + + + + | [facility] | [address] | [place] | | | [facility] | | [address] | | | - LABORATORY | | | | + + + + + Comprehensive Metabolic Panel (09/03/2012 3:43 PM PDT) + + + + + + | Component | Value | Ref Range | Performed | Pathologist | | | | | At | Signature | + + + + + + | Glucose | 93 | 70 - 109 mg/dL | [facility] | | | | | [...] Alkaline | 63 | 40 - 110 IU/L | [facility] | | | Phosphatase | | | [facility] | | | | | | MEDICAL | | | | | | CENTER - | | | | | | LABORATORY | | + + + + + + | AST | 22 | 10 - 42 IU/L | [facility] | | | | | | [facility] | | | | | | MEDICAL | | | | | | CENTER - | | | | | | LABORATORY | | + + + + + + | ALT | 17 | 6 - 45 IU/L | [facility] [...] + + + + | Total | 7.4 | 6.0 - 7.8 gm/dL | [facility] | | | Protein | | | [facility] | | | | | | MEDICAL | | | | | | CENTER - | | | | | | LABORATORY | | + + + + + + | Albumin | 3.6 | 3.2 - 5.0 gm/dL | [facility] | | | | | | [facility] | | | | | | MEDICAL | | | | | | CENTER - | | | | | | LABORATORY | | + + + + + + | BUN | 19 (H) | 7 - 18 mg/dL | [facility] | | | | | | [facility] | | | | | | [facility] | | | | | | CENTER - | | | | | | LABORATORY | | + + + + + + | Creatinine | 0.91 | 0.60 - 1.30 | [facility] | | | | | mg/dL | [facility] | | | | | | MEDICAL | | | | | | CENTER - | | | | | | LABORATORY | | + + + + + + | Estimated | 60Comment: For | >60 mL/min/A | [facility] | | | GFR | -Americans, | | [facility] | | | | please multiply the | | MEDICAL | | | | result by 1.210 | | CENTER - | | | | This is an estimated GFR | | LABORATORY | | | | and is based on a | | | | | | standard adult | | | | | | body mass (A=1.73m2) and | | | | | | serum creatinine | | | | + + + + + + | BUN/Creatin | 20.9 (H) | 12 - 20 | [facility] | [...] + + + + | K | 3.5 | 3.5 - 5.1 mEq/l | [facility] | | | | | | [facility] | | | | | | MEDICAL | | | | | | CENTER - | | | | | | LABORATORY | | + + + + + + | Cl | 99 | 98 - 109 mEq/l | [facility] | | | | | | [facility] | | | | | | MEDICAL | | | | | | CENTER - | | | | | | LABORATORY | | + + + + + + | CO2 | 30 | 24 - 31 mEq/L | [facility] | | | | | | [facility] | | | | | | MEDICAL | | | | | | CENTER - | | | | | | LABORATORY | | + + + + + + | Anion Gap | 11.5 | 6.0 - 17.0 | [facility] | | | | | [...] + | [facility] | [address] | [place] | [phone] | | [facility] | | [address] | | | - LABORATORY | | | | + + + + + | [facility] | [address] | [place] | | | [facility] | | [address] | | | - LABORATORY | | | | + + + + + CBC with Differential (09/03/2012 3:43 PM PDT) + + + + + + | Component | Value | Ref Range | Performed | Pathologist | | | | | At | Signature | + + + + + + | WBC | 9.3 | 4.0 - 11.0 K/uL | [facility] | | | | | | [facility] | | | | | | MEDICAL | | | | | | CENTER - | | | | | | LABORATORY | | + + + + + + | RBC | 4.02 | 3.70 - 5.20 | [facility] | | | | | M/uL | [facility] | | | | | | MEDICAL | | | | | | CENTER - | | | | | | LABORATORY | | + + + + + + | Hemoglobin | 13.3 | 11.5 - 16.0 | [facility] | | | | | gm/dL | [facility] | | | | | | MEDICAL | | | | | | CENTER - | | | | | | LABORATORY | | + + + + + + | Hematocrit | 40.7 | 34.0 - 47.0 % | [facility] | | | | | | [facility] | | | | | | MEDICAL | | | | | | CENTER - | | | | | | LABORATORY | | + + + + + + | MCV | 101.2 (H) | 83.0 - 101.0 fL | [facility] | | | | | | [facility] | | | | | | MEDICAL | | | | | | CENTER - | | | | | | LABORATORY | | + + + + + + | MCH | 33.2 | 28.0 - 35.0 pg | [facility] [...] + + + + | RDW-CV | 13.6 | <15.0 % | [facility] | | | | | | [facility] | | | | | | MEDICAL | | | | | | CENTER - | | | | | | LABORATORY | | + + + + + + | Platelet | 336 | 140 - 440 K/uL | [facility] | | | Count | | | [facility] | | | | | | MEDICAL | | | | | | CENTER - | | | | | | LABORATORY | | + + + + + + | % | 66.4 | 45 - 75 % | [facility] | | | Neutrophils | | | [facility] | | | | | | MEDICAL | | | | | | CENTER - | | | | | | LABORATORY | | + + + + + + | % | 21.4 | 20 - 45 % | [facility] | | | Lymphocytes | | | [facility] | | | | | | MEDICAL | | | | | | CENTER - | | | | | | LABORATORY | | + + + + + + | % Monocytes | 8.6 | 4 - 12 % | [facility] [...] + | % Basophils | 0.6 | 0 - 1 % | [facility] | | | | | | [facility] | | | | | | MEDICAL | | | | | | CENTER - | | | | | | LABORATORY | | + + + + + + | Absolute | 6.2 | 1.5 - 6.6 K/uL | [facility] | | | Neutrophils | | | [facility] | | | | | | MEDICAL | | | | | | CENTER - | | | | | | LABORATORY | | + + + + + + | Absolute | 2.0 | 0.6 - 3.2 K/uL | [facility] | | | Lymphocytes | | | [facility] | | | | | | MEDICAL | | | | | | CENTER - | | | | | | LABORATORY | | + + + + + + | Absolute | 0.8 | 0.0 - 1.0 K/uL | [facility] | | | Monocytes | | | [...] + | [facility] | [address] | [place], [place] | [phone] | | [facility] | | [address] | | | - LABORATORY | | | | + + + + + | [facility] | [address] | [place], [place] | | | [facility] | | [address] | | | - LABORATORY | | | | + + + + + Urinalysis with Microscopic if Indicated (09/03/2012 3:30 PM PDT) + + + + + + | Component | Value | Ref Range | Performed | Pathologist | | | | | At | Signature | + + + + + + | COLLECTION | . | | [facility] | | | METHOD [facility] | | | [facility] | | | | | | MEDICAL | | | | | | CENTER - | | | | | | LABORATORY | | + + + + + + | Color, | YELLOW | | [facility] | | | Urine | | | [facility] | | | | | | MEDICAL | | | | | | CENTER - | | | | | | LABORATORY | | + + + + + + | Clarity | CLEAR | | [facility] | | | | | | [facility] | | | | | | MEDICAL | | | | | | CENTER - | | | | | | LABORATORY | | + + + + + + | Glucose, | NEGATIVE | NEGATIVE mg/dL | [facility] | | | Urine | | | [facility] | | | | | | MEDICAL | | | | | | CENTER - | | | | | | LABORATORY | | + + + + + + | Bilirubin, | NEGATIVE | NEGATIVE | [facility] | | | Urine | | | [facility] | | | | | | MEDICAL | | | | | | CENTER - | | | | | | LABORATORY | | + + + + + + | Ketones, | NEGATIVE | NEGATIVE | [facility] | | | Urine | | | [facility] | | | | | | MEDICAL | | | | | | CENTER - | | | | | | LABORATORY | | + + + + + + | Specific | >=1.030 | 1.001 - 1.030 | [facility] | | | [place] | | | [facility] | | | | | | MEDICAL | | | | | | CENTER - | | | | | | LABORATORY | | + + + + + + | Blood, | NEGATIVE | NEGATIVE | [facility] | | | Urine | | | [facility] | | | | | | MEDICAL | | | | | | CENTER - | | | | | | LABORATORY | | + + + + + + | pH, Urine | 5.5 | 5.0 - 8.0 | [facility] | | | | | | [facility] | | | | | | MEDICAL | | | | | | CENTER - | | | | | | LABORATORY | | + + + + + + | Protein, | NEGATIVE | NEGATIVE mg/dL | [facility] | | | Urine | | | [facility] | | | | | | MEDICAL | | | | | | CENTER - | | | | | | LABORATORY | | + + + + + + | Urobilinoge | NORMAL | NORMAL EU/dL | [facility] | | | n, Urine | | | [facility] | | | | | | MEDICAL | | | | | | CENTER - | | | | | | LABORATORY | | + + + + + + | Nitrite, | NEGATIVE | NEGATIVE | [facility] | | | Urine | | | [facility] | | | | | | MEDICAL | | | | | | CENTER - | | | | | | LABORATORY | | + + + + + + | Leukocyte | NEGATIVE | NEGATIVE | [facility] | | | Esterase, | [...] [address] | [place] | [phone] | | [facility] | | [address] | | | - LABORATORY | | | | + + + + + | [facility] | [address] | [place] | | | [facility] | | [address] | | | - LABORATORY | | | | + + + + + documented in this encounter Visit Diagnoses + + | Diagnosis | + + | Hypertension Unspecified essential hypertension | + + documented in this encounter"
--- OUTSIDE RECORDS SUMMARY | ~2019-05-18 | XMS | Encounter Summary ---
Demographics + + + | Address | [address] | | | [place] [address] | + + + | Home Phone | | + + + | Preferred Language | Unknown | + + + | Marital Status | | + + + | Jewish Affiliation | Unknown | + + + | Race | Unknown | + + + | Ethnic Group | Unknown | + + + Author + + + | Author | and [facility] | | | and [place] | + + + | Organization | and [facility] | | | and [...] | | | | | [place] [address] | | + + + + + | Hunter Jackson | ECON | [place] | | + + + + + | Wes Jackson | ECON | [place], [place] | | + + + + + | Oziel Jackson | ECON | [place], [place] | | + + + + + Care Team Providers + +------+ + | Care Parasitology Teacher Name | Role | Phone | + +------+ + | Rodolfo Cruz MD | PCP | | + +------+ + Encounter Details +--------+ + + + + | Date | Type | Department | Care Team | Description | +--------+ + + + + | 05/23/ | Hospital | [facility] | [place], | Hypothyroidism, | | 2016 | Encounter | [facility] | JOSE ALBERTO [address] | unspecified | | | | [address] [place] | [place], | hypothyroidism type | | | | [place], [place] | [place] [address] | | | | | [address] | [phone] | | | | | [phone] | | | +--------+ + + + [...] | | 0 | | | | (NORVASC) 5 mg | Daily. | | | | 6 | | tablet | | | | | | + + + +---------+ + + | cetirizine | Take 10 mg by mouth | | 0 | | | | (ZYRTEC) 10 mg | as needed for | | | | 7 | | tablet | Allergies. | | | | | + + + +---------+ + + | escitalopram | One po qd | 90 | 1 | 10/26/19 | | | (LEXAPRO) 10 mg | | tablet | | 15 | 6 | | tablet | | | | | | + + + +---------+ + + | eszopiclone | Take 1 tablet by | 90 | 0 | 05/15/19 | | | (LUNESTA) 2 MG | mouth nightly. | tablet | | 16 | 6 | | TABSIndications: | | | | | | | Insomnia, | | | | | | | unspecified insomnia | | | | | | + + + +---------+ + + | fenofibrate | TAKE ONE TABLET BY | 90 | 3 | 07/08/19 | | | (TRICOR) 48 mg | MOUTH EVERY DAY | tablet | | 15 | 6 | | tablet | | | | | | + + + +---------+ + + | furosemide (LASIX) | Take 20 mg by mouth | | 0 | | | | 20 mg tablet | as needed for Edema. | | | | 6 | + + + +---------+ + + | | Take 2 tablets by | | 0 | | | | Glucosamine-Chondroi | mouth Daily. | | | | 8 | | tin (COSAMIN DS PO) | | | | | | + + + +---------+ + + | | One po qd prn pain, | 90 | 0 | 05/02/20 | | | HYDROcodone-acetamin | avoid routine use, | tablet | | 15 | 6 | | ophen (NORCO) | [...] | | | | | | [place] [address] | | | | | | [phone] | | | | | | | | +--------+---------+ + + + documented as of this encounter Procedures + +--------+ + + + | Procedure Name | Priori | Date/Time | Associated Diagnosis | Comments | | | ty | | | | + +--------+ + + + | TSH | Routin | 05/23/2015 | Hypothyroidism, | Results for this | | | e | 1:45 PM | unspecified | procedure are in the | | | | PST | hypothyroidism type | results section. | + +--------+ + + + | T4, FREE | Routin | 05/23/2015 | Hypothyroidism, | Results for this | | | e | 1:45 PM | unspecified | procedure are in the | | | | PST | hypothyroidism type | results section. | + +--------+ + + + documented in this encounter Results TSH (05/23/2015 1:45 PM PST) + + + + + + | Component | Value | Ref Range | Performed | Pathologist | | | | | At | Signature | + + + + + + | TSH | 0.48Comment: All TSH | 0.34 - 5.60 | [facility] | | | | samples are screened | uIU/mL | [facility] | | | | using a 2nd Generation | | MEDICAL | | | | test, and are reflexed | | CENTER - | | | | to a 3rd Generation test | | LABORATORY | | | | if indicated. | | | | + + + + + + + + | Specimen | + + | Blood | + + + + + + + | Performing | Address | City/State/Zipcode | Phone Number | | Organization | | | | + + + + + | [facility] | [address] | [place] | [phone] | | [facility] | | [address] | | | - LABORATORY | | | | + + + + + T4, Free (05/23/2015 1:45 PM PST) + +---------+ + + + | Component | Value | Ref Range | Performed | Pathologist | | | | | At | Signature | + +---------+ + + + | FT4 | 1.6 (H) | 0.6 - 1.1 ng/dL | [facility] | | | | | [...] + | [facility] | [address] | [place] | [phone] | | [facility] | | [address] | | | - LABORATORY | | | | + + + + + documented in this encounter Visit Diagnoses + + | Diagnosis | + + | Hypothyroidism, unspecified hypothyroidism type | + + documented in this encounter"
--- OUTSIDE RECORDS SUMMARY | ~2019-05-18 | XMS | Encounter Summary ---
Demographics + + + | Address | [address] | | | [place] [address] | + + + | Home Phone | | + + + | Preferred Language | Unknown | + + + | Marital Status | | + + + | Pentecostal Affiliation | Unknown | + + + | Race | Unknown | + + + | Ethnic Group | Unknown | + + + Author + + + | Author | [facility] | | | and [place] | + + + | Organization | [facility] | | | and [...] | | | | | [place] [address] | | + + + + + | Hunter Jacskon | ECON | [place] | | + + + + + | Wes Jackson | ECON | [place], [place] | | + + + + + | Oziel Jackson | ECON | [place], [place] | | + + + + + Care Team Providers + +------+ + | Care Copy Camera Operator Name | Role | Phone | [...] Description | +--------+--------+ + + + | 07/25/ | Refill | [facility] | Rodolfo Cruz, | Medication Refill | | 2016 | | MEDICINE [address] | [place] [address] | | | | | [place] | [place] [address] | | | | | [place] [address] | [id number] | | | | | [phone] | | | +--------+--------+ + + + [...] | | | | | | [place] [address] | | | | | | [phone] | | | | | | | | +--------+---------+ + + + documented as of this encounter Visit Diagnoses Not on filedocumented in this encounter"
--- OUTSIDE RECORDS SUMMARY | ~2019-05-18 | XMS | Encounter Summary ---
Demographics + + + | Address | [address] | | | [place] [address] | + + + | Home Phone [...] + + | Author | [facility] | | | and [place] | + + + | Organization | [facility] | | | and [...] | | | | | [place] [address] | | + + + + + | Hunter Jackson | ECON | [place] | | + + + + + | Wes Jackson | ECON | [place], [place] | | + + + + + | Oziel Jackson | ECON | [place], [place] | | + + + + + Care Team Providers + +------+ + | Care Cellular Equipment Installer Name | Role | Phone [...] + + | 01/26/ | Office | [facility] | Harsha Selby | Chronic low back | | 2015 | Visit | PHYSIATRY [address] | TMD [address] | pain (Primary Dx); | | | | [place], | [address] | Facet arthritis of | | | | [place] [address] | [address] | lumbar region; DDD | | | | [phone] | | (degenerative disc | | | [...] of the procedure you must provide a pile driver operator to take you home. 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 She has appropriate fund of knowledge [...] ulcers previously with NSAIDS. She has used [place] marta in the past and is still [...] STREETER | | | | | | [address] | | | | | | | | +--------+---------+ + + + | 11/21/ | Office | Cardiology | Yesi, | | | 2019 | Visit | | JOSE ALBERTO Linder [address] | | | | | | [place] | | | | | | [place] [address] | | | | | | [phone] | | | | | | | [...] OLEGARIO | | Lumbar spondylosis 723.1 Soumyanito Jackson presents to the | [facility] | | fluoroscopy suite for fluoroscopically guided bilateral L3 and | [facility] | | bilateral L4 medial branch [...] + + | [address] | [place] | [phone] | | [facility] | | [address] | | | - IMAGING | | [...]
--- OUTSIDE RECORDS SUMMARY | ~2019-05-18 | XMS | Encounter Summary ---
Demographics + + + | Address | [address] | | | [place] [address] | + + + | Home Phone [...] | Author | [facility] | | | and [place] | + + + | Organization | [facility] | | | and [...] | | | | | [place] [address] | | + + + + + | Hunter Jackson | ECON | [place] | | + + + + + | Wes Jackson | ECON | [place], [place] | | + + + + + | Oziel Jackson | ECON | [place], [place] | | + + + + + Care Team Providers + +------+ + | Care Septic Tank Setter Name | Role | Phone | + [...] Description | +--------+--------+ + + + | 09/20/ | Refill | [facility] [place] [facility] | Rodolfo Cruz, | Medication Refill | | 2015 | | MEDICINE [address] | [address] | | | | | [place] | [address] [address] | | | | | [place] [address] | [address] | | | | | [phone] | | | +--------+--------+ + + + [...] STREETER | | | | | | [address] | | | | | | | | +--------+---------+ + + + | 11/21/ | Office | Cardiology | Yesi, | | | 2019 | Visit | | JOSE ALBERTO [address] | | | | | | [place] | | | | | | [place] [address] | | | | | | [phone] | | | | | | | | +--------+---------+ + + + documented as of this encounter Visit Diagnoses Not on filedocumented in this encounter"
--- OUTSIDE RECORDS SUMMARY | ~2019-05-18 | XMS | Encounter Summary ---
Demographics + + + | Address | [address] | | | [place] [address] | + + + | Home Phone | | + + + | Preferred Language | Unknown | + + + | Marital Status | | + + + | Religion Affiliation | Unknown | + + + | Race | Unknown | + + + | Ethnic Group | Unknown | + + + Author + + + | Author | [facility] | | | and [place] | + + + | Organization | [facility] | [...] | | | | | [place] [address] | | + + + + + | Gisele Jackson | ECON | [place], [place] | | + + + + + | Wes Jackson | ECON | [place], [place] | | + + + + + | Oziel Jackson | ECON | [place], [place] | | + + + + + Care Team Providers + +------+ + | Care Retail Sales Director Name | Role | Phone | + +------+ + | Provider Not, In System | PCP | Unavailable | + +------+ + Reason for Referral Diagnostic/Screening (Routine) +--------+--------+ + + + + | Status | Reason | Specialty | Diagnoses / | Referred By | Referred To | | | | | Procedures | Contact | Contact | +--------+--------+ + + + + | Closed | | MRI | Diagnoses | | OP ST | | | | | Chronic | Yany, | GISELE | | | | | midline | [facility] | | | | | thoracic | PA-C [address] | [address] | | | | | back pain | [address] | [address]VE | | | | | Spondylosis | [place] | [place], [place] | | | | | of cervical | [address] | [address] | | | | | region | Phone: | Phone: | | | | | without | [phone] | [phone] | | | | | myelopathy | Fax: | Fax: | | | | | or | [phone] | [phone] | | | | | radiculopath | | | | | | | y Lytic | | | | | | | lesion of | | | | | | | bone on | | | | | | | x-ray | | | | | | | Procedures | | | | | | | MRI Cervical | | | | | | | Spine wo | | | | | | | Contrast | | | | | | | Faxed 07/08 | | | +--------+--------+ + + + + Diagnostic/Screening (Routine) +--------+--------+ + + + + | Status | Reason | Specialty | Diagnoses / | Referred By | Referred To | | | | | Procedures | Contact | Contact | +--------+--------+ + + + + | Closed | | MRI | Diagnoses | | OP ST | | | | | Chronic | Yany, | GISELE | | | | | midline | [facility] | | | | | thoracic | PA-C [address] | | | | | back pain | [address] | AVE | | | | | Spondylosis | [place] | [place] | | | | | of cervical | [address] | [address] | | | | | region | Phone: | Phone: | | | | | without | [phone] | [phone] | | | | | myelopathy | Fax: | Fax: | | | | | or | [phone] | [phone] | | | | | radiculopath | | | | | | | y Lytic | | | | | | | lesion of | | | | | | | bone on | | | | | | | x-ray | | | | | | | Procedures | | | | | | | MRI Thoracic | | | | | | | Spine wo | | | | | | | Contrast | | | | | | | faxed [phone] | | | +--------+--------+ + + + + Evaluate & Treat (Routine) +--------+ + + + + + | Status | Reason | Specialty | Diagnoses / | Referred By | Referred To | | | | | Procedures | Contact | Contact | +--------+ + + + + + | Closed | Specialty | Physical | Diagnoses | | OP ST | | | Services | Therapy | Chronic | Yany | [place] | | | Required | | midline | [facility] | | | | | thoracic | PA-C [address] | [address] | | | | | back pain | [address] | AVE | | | | | Spondylosis | [place] | [place] | | | | | of cervical | [address] | [address] | | | | | region | Phone: | Phone: | | | | | without | [phone] | [phone] | | | | | myelopathy | Fax: | Fax: | | | | | or | [phone] | [phone] | | | | | radiculopath | | | | | | | y Lytic | | | | | | | lesion of | | | | | | | bone on | | | | | | | x-ray | | | | | | | Procedures | | | | | | | HIM 2/27 | | | +--------+ + + + + + Reason for Visit + + + | Reason | Comments | + + + | Back Pain | low back | + + + Evaluate & Treat (Routine) +--------+--------+ + + + + | Status | Reason | Specialty | Diagnoses / | Referred By | Referred To | | | | | Procedures | Contact | Contact | +--------+--------+ + + + + | Closed | | Physical | Diagnoses | Poste, | Bal, | | | | Medicine and | | MD Angelica | Harsha Moreno MD | | | | Rehabilitatio | Radiculopath | [address] | [address] | | | | n | y, lumbar | [address] | [place] | | | | | region Low | [address] | [place], [place] | | | | | back pain | [place], | [address] Phone: | | | | | | [place] [address] | [phone] | | | | | | Phone: | Fax: | | | | | | [phone] | [phone] | | | | | | Fax: | | | | | | | [phone] | | +--------+--------+ + + + + Encounter Details +--------+---------+ + + + | Date | Type | Department | Care Team | Description | +--------+---------+ + + + | 07/03/ | Office | [facility] [place] | Yany, | Chronic midline | | 2017 | Visit | PHYSIATRY [address] | ANN Verdin [address] | thoracic back pain | | | | [place], | [address], | (Primary Dx); | | | | [place] [address] | [place] [address] | Spondylosis of | | | | [phone] | [phone] | cervical region | | | | | | without myelopathy | | | | | | or radiculopathy; | | | | | | Lytic lesion of bone | | | | | | on x-ray | +--------+---------+ + + + Social History [...] + + + | Blood Pressure | 149/76 | 07/03/2016 2:16 PM | | | | | PST | | + + + + + | Pulse | 60 | 07/03/2016 2:16 PM | | | | | PST [...] Weight | 82.1 kg (181 lb) | 07/03/2016 2:16 PM | | | | | PST | | + + + + + | Height | 162.6 cm (5' 4") | 07/03/2016 2:16 PM | | | | | PST | | + + + + + | Body Mass Index | 31.07 | 07/03/2016 2:16 PM | | | | | PST | | + + + + + documented in this encounter Patient Instructions Patient Instructions Velvet Slade PA-C - 07/03/2016 2:43 PM PST1) get xray of neck with MRI or neck and thoracic spine 2) Try Lidocaine patch, can get from [employer] or [employer] 3) Massage therapy/physical therapy at [facility] 4) I will call you with image results and discuss treatment plan. documented in this encounter Progress Notes Velvet Slade PA-C - 07/03/2016 2:50 PM PSTFormatting of this note might be differe nt from the original. CHIEF COMPLAINT: Chief Complaint Patient presents with Back Pain low back HISTORY OF PRESENT ILLNESS: The patient is a 80 y.o. female being seen today in follow-up for complaints of mid back pa in. The patient has been seen for this complaint in the past, with initial visit started b y Dr. Selby. We saw her over a year ago. Trigger point injections were attempted, however she cannot re call if it gave her any relief. She also participated in physical therapy in the summer of 2014 and again cannot recall if she had any relief of her symptoms. She reports that the sym ptoms show no change. She state in the last year her symptoms have worsened. She is mostly using a heating pad for relief. She rates the pain as 9 on scale of 1-10. She describes t he pain as aching, worse with prolonged standing, bending, stooping, reaching, and working w ith her hands while in the kitchen. Her symptoms improve with postural control and heating pad. 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 She does not report weakness. She does not have bowel and bladder dysfunction. She does not have saddle anesthesia. Treatments for these complaints have included physical therapy, chiropractics along with th e use of hydrocodone/apap at night. She does use Voltaren Gel which she reports helps. She had previous trigger point injections which were performed by me in December and she again can not remember if this helped. Patient's medications, allergies, past medical, surgical, social and family histories were reviewed and updated as appropriate. CURRENT MEDICATIONS: Current Outpatient Prescriptions Medication Sig Dispense Refill albuterol 90 mcg/puff inhaler 2 puff po q 4 hours prn 1 Inhaler 0 amLODIPine (NORVASC) 5 mg tablet TAKE TWO TABLETS BY MOUTH EVERY DAY 60 tablet 5 BIOTIN PO Take 500 mg by mouth Daily. Calcium Citrate-Vitamin D (CITRACAL MAXIMUM PO) TABS Take one by mouth three times rafia y. cetirizine (ZYRTEC) 10 mg tablet Take 10 [...] BY MOUTH EVERY MOR LIDIA BEFORE BREAKFAST (Patient taking differently: 100 mcg. TAKE ONE TABLET BY MOUTH EVERY M ORNING BEFORE BREAKFAST) 90 tablet 3 magnesium-calcium carbonate (SLOW-MAG) 71.5-119 [...] ADULT 50+) CAPS Take by mouth Daily. polyethylene glycol (MIRALAX) packet Take 17 g by mouth Daily as needed. Took it once o n the RaNITidine HCl (RANITIDINE ACID OCCUPATIONAL HEALTH MANAGER PO) Take 1 tablet by mouth Daily. vitamin B-12 (CYANOCOBALAMIN) 1000 MCG tablet Take 1,000 mcg by mouth Daily. No current facility-administered medications for this visit. ALLERGIES: Allergies Allergen Reactions Diclofenac Sodium Duodenal Ulcer October 2013 Alendronate Sodium Patient not remember Celecoxib Patient not remember Penicillins Caused "black diarrhea" when she had her 4th child. Risedronate Sodium Patient not remember REVIEW OF SYSTEMS: (in the last 24 hours) GENERALLY: No fever, chills, weight changes. EYES: [...] No abnormal bleeding PHYSICAL EXAMINATION: Filed Vitals: 07/03/16 1416 BP: 149/76 Pulse: 60 PainSc: 9 PainLoc: Back Body mass index is 31.05 kg/(m^2). GENERAL: The patient is well developed and well nourished. She does not appear uncomfortab le when seated. HEENT: HEAD/FACE: EYES: EARS: NASOPHARNYX: OROPHARNYX: Normocephalic and atraumatic. There are no areas of recent trauma. Normal sclerae without icterus. No drainage or tenderness. Clear without drainage. Clear without erythema. SKIN Limited skin exam shows no significant rashes or lesions. There are not scars in the lumbar region. CHEST: The patient is in no acute respiratory distress with unlabored respirations. HEART: There is not lower extremity edema. ABDOMEN: Soft, non-tender, non-distended, and without palpable masses. The patient is not obese. NEUROLOGIC: The patient is awake, alert, and oriented to time, place, person. She follows simple and complex commands. Her speech is fluent. She comprehends speech well. She has no apparent deficits with short or sr. social media & mobile manager memory. She has appropriate fund of knowledge Cranial nerves 2-12 appear grossly intact. Sensory exam does not show diminished sensation to light touch in the lower extremities. MUSCULOSKELETAL There is no tenderness in the midline of the cervical or thoracic spine. T here is no major palpable deformity of the spine. Range of motion testing of the cervical spine was unremarkable. Spurling sign was negative. Shoulder examination shows well preserved range of motion with external rotation, internal rotation and abduction, she does have bursitis and reports pain with flexion on the right. Impingement testing was Positive on the right, There was no tenderness over the bicipital groove or over the AC joint. Speed's test was Negative. Empty can test was Negative. Str ength testing, including strength testing of the infraspinatus, supraspinatus and subscapula ris, in bilateral upper extremities showed 5/5 strength with no focal weakness. RADIOGRAPHIC REVIEW: The patient's imaging was reviewed in detail with the patient today during the visit. CT of the abdomen/pelvis from November of 2013. This was reviewed today looking specifically at the l umbar spine itself. The images show fairly significant DDD and facet arthritis at the L5-S1 level. 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 -LEFTWARD CURVATURE OF THE UPPER THORACIC SPINE WITHOUT SIGNIFICANT THORACIC DISC PATHOLOGY OR STENOSIS. ASSESSMENT: 1. Chronic midline thoracic back pain 2. Spondylosis of cervical region without myelopathy or radiculopathy 3. Lytic lesion of bone on x-ray PLAN: 1. Thoracic back pain on the right, unresponsive to trigger point injections and PT. I gutierrez ve ordered a new thoracic and cervical MRI, either referred pain from the cervical area or t rue thoracic pathology. 2. Medications have been reviewed at today's visit with no changes made at this time. She cannot take any NSAIDS due to developing ulcers. She has used voltaren in the past but is n ow using the gel. She does have hydrocodone which provides significant relief. Advised her to get over the counter lidocaine patches. 3. Follow up after images. See how PT goes, may offer intercostal nerve block or cervical epidural steroid injections. ELECTRONICALLY SIGNED BY: Velvet Slade PA-C, 07/03/2016 documented in this encounter Plan of Treatment +--------+---------+ + + + | Date | Type | Specialty | Care Team | Description | +--------+---------+ + + + | 06/02/ | Office | Orthopedic Surgery | Ulysses Jensen, | | | 2019 | Visit | | MD Danny FLANNERY | | | | | | [place] [address] | | | | | | [id number] | | | | | | | | +--------+---------+ + + + | 11/21/ | Office | Cardiology | Yesi, | | | 2020 | Visit | | JOSE ALBERTO [address]inder [address] | | | | | | [place], | | | | | | [place] [address] | | | | | | [phone] | | | | | | | | +--------+---------+ + + + + +---------+--------+ + + | Name | Type | Priori | Associated Diagnoses | Order Schedule | | | | ty | | | + +---------+--------+ + + | XR Cervical Spine 4 | Imaging | Routin | Chronic midline | Expected: | | or 5 Vws | | e | thoracic back pain | 07/03/2016, Expires: | | | | | Spondylosis of | 07/04/2017 | | | | | cervical region | | | | | | without myelopathy | | | | | | or radiculopathy | | | | | | Lytic lesion of bone | | | | | | on x-ray | | + +---------+--------+ + + | MRI Thoracic Spine | Imaging | Routin | Chronic midline | Expected: | | wo Contrast | | e | thoracic back pain | 07/03/2016, Expires: | | | | | Spondylosis of | 07/04/2017 | | | | | cervical region | | | | | | without myelopathy | | | | | | or radiculopathy | | | | | | Lytic lesion of bone | | | | | | on x-ray | | + +---------+--------+ + + | MRI Cervical Spine | Imaging | Routin | Chronic midline | Expected: | | wo Contrast | | e | thoracic back pain | 07/03/2016, Expires: | | | | | Spondylosis of | 07/04/2017 | | | | | cervical region | | | | | | without myelopathy | | | | | | or radiculopathy | | | | | | Lytic lesion of bone | | | | | | on x-ray | | + +---------+--------+ + + + + +--------+ + + | Name | Type | Priori | Associated Diagnoses | Order Schedule | | | | ty | | | + + +--------+ + + | * [facility] Physical | Outpatient | Routin | Chronic midline | Ordered: 07/03/2016 | | Therapy - AMB | Referral | e | thoracic back pain | | | Referral | | | Spondylosis of | | | | | | cervical region | | | | | | without myelopathy | | | | | | or radiculopathy | | | | | | Lytic lesion of bone | | | | | | on x-ray | | + + +--------+ + + documented as of this encounter Procedures + +--------+ + + + | Procedure Name | Priori | Date/Time | Associated Diagnosis | Comments | | | ty | | | | + +--------+ + + + | IMAGING REPORT - | | 07/18/2016 | | Results for this | | EXTERNAL SCAN | | 12:00 AM | | procedure are in the | | | | PST | | results section. | + +--------+ + + + | IMAGING REPORT - | | 07/18/2016 | | Results for this | | EXTERNAL SCAN | | 12:00 AM | | procedure are in the | | | | PST | | results section. | + +--------+ + + + | IMAGING REPORT - | | 07/18/2016 | | Results for this | | EXTERNAL SCAN | | 12:00 AM | | procedure are in the | | | | PST | | results section. | + +--------+ + + + documented in this encounter Results IMAGING REPORT - EXTERNAL SCAN (07/18/2016 12:00 AM PST) + + + | Narrative | Performed At | + + + | Ordered by an | | | unspecified provider. | | + + + IMAGING REPORT - EXTERNAL SCAN (07/18/2016 12:00 AM PST) + + + | Narrative | Performed At | + + + | Ordered by an | | | unspecified provider. | | + + + IMAGING REPORT - EXTERNAL SCAN (07/18/2016 12:00 AM PST) + + + | Narrative | Performed At | + + + | Ordered by an | | | unspecified provider. | | + + + documented in this encounter Visit Diagnoses + + | Diagnosis | + + | Chronic midline thoracic back pain - Primary | + + | Spondylosis of cervical region without myelopathy or radiculopathy Cervical | | spondylosis without myelopathy | + + | Lytic lesion of bone on x-ray Disorder of bone and cartilage, unspecified | + + documented in this encounter
--- OUTSIDE RECORDS SUMMARY | ~2019-05-18 | XMS | Encounter Summary ---
Demographics + + + | Address | [address] | | | [place] [address] | + + + | Home Phone [...] Author | [facility] | | | and [place] | + + + | Organization | [facility] | | | and [...] | | | | | [place] [address] | | + + + + + | Hunter Jackson | ECON | [place] | | + + + + + | Wes Jackson | ECON | [place], [place] | | + + + + + | Oziel Jackson | ECON | [place], [place] | | + + + + + Care Team Providers + +------+ + | Care Manager Acquisition Name | Role | Phone | + +------+ + | Rodolfo Cruz MD | PCP | | + +------+ + Reason for Referral Diagnostic/Screening (Emergency) +--------+--------+ + + + + [...] bone | Rodolfo Reilly MD | [address] | | | | | lesions on | [address] | [place], | | | | | xray | [address] [place] | [place] [address] | | | | | Procedures | [place], [place] | Phone: | | | | | CT Chest | [address] | [phone] | | | | | Abdomen | Phone: | Fax: | | | | | Pelvis w | [phone] | [phone] | | | | | Contrast | Fax: | | | | | | | [phone] | | +--------+--------+ + + + + Reason for Visit Diagnostic/Screening (Emergency) +--------+--------+ + + + + [...] bone | Rodolfo Reilly MD | [address] | | | | | lesions on | [address] | [place], | | | | | xray | [address] | [place] [address] | | | | | Procedures | [place], [place] | Phone: | | | | | CT Chest | [address] | [phone] | | | | | Abdomen | Phone: | Fax: | | | | | Pelvis w | [phone] | [phone] | | | | | Contrast | Fax: | | | | | | | [phone] | | +--------+--------+ + + + + Encounter Details +--------+ + + + + | Date | Type | Department | Care Team | Description | +--------+ + + + + | 11/09/ | Hospital | [facility] | Rodolfo Cruz, | Lytic bone lesions | | 2013 | Encounter | [facility] [address] | [address] | on xray | | | | [place], | [place], [place] | | | | | [place] [address] | [address] | | | | | [phone] | | | +--------+ + + + [...] | | | | | | | 23 | | | | | + + [...] [place] | | | | | | [address] | | | | | | | | +--------+---------+ + + + | 11/21/ | Office | Cardiology | Yesi, | | | 2019 | Visit | | JOSE ALBERTO [address]inder [address] | | | | | | [place], | | | | | | [place] [address] | | | | | | [phone] | | | | | | | | +--------+---------+ + + + documented as of this encounter Procedures + +--------+ + + + | Procedure Name | Priori | Date/Time | Associated Diagnosis | Comments | | | ty | | | | + +--------+ + + + | CT CHEST ABDOMEN | STAT | 11/09/2013 | Lytic bone lesions | Results for this | | PELVIS W CONTRAST | | 1:12 PM | on xray | procedure are in the | | | | PDT | | results section. | + +--------+ + + + documented in this encounter Results CT Chest Abdomen Pelvis [...] three months. Dictated and Signed by: Gaurav Masters MD Electronically signed: 11/09/2013 3:04 PM | | [...] intravenous | | administration of 90 mL [id number] contrast. Oral contrast was administered. | | [...] + | MISCELLANEOUS LAB | | | [phone] | + +---------+ + + | MISCELANIOUS LAB | | | [phone] | + +---------+ + + documented in this encounter Visit Diagnoses + + | Diagnosis | + + | Lytic bone lesions on xray Disorder of bone and cartilage, unspecified | + + documented in this encounter Administered Medications + +--------+ +--------+------+------+ | Medication Order | MAR | Action | Dose | Rate | Site | | | Action | Date | | | | + +--------+ +--------+------+------+ | iohexol (OMNIPAQUE 350) 350 | Given | 11/10/19 | 90 mLs | | | | mg/mL injection 90 mL 90 mL, | | 14 1:10 | | | | | Intravenous, ONCE PRN, Other, | | PM PDT | | | | | Starting Tu11/09/13 at 1310, For | | | | | | | 1 dose, Cat Scanner | | | | | | + +--------+ +--------+------+------+ +---+---+ | | | +---+---+ documented in this encounter"
--- OUTSIDE RECORDS SUMMARY | ~2019-05-18 | XMS | Encounter Summary ---
Demographics + + + | Address | [address] | | | [place] [address] | + + + | Home Phone | | + + + | Preferred Language | Unknown | + + + | Marital Status | | + + + | Taoist Affiliation | Unknown | + + + | Race | Unknown | + + + | Ethnic Group | Unknown | + + + Author + + + | Author | [facility] | | | and [place] | + + + | Organization | [facility] | | | and [place] | + + + | Address | Unknown | + + + | Phone | Unavailable | + + + Support + + + + + | Name | Relationship | Address | Phone | + + + + + | Osmin Jackson | ECON | [address] | | | | | [place] [address] | | + + + + + | Hunter Jackson | ECON | [place] | | + + + + + | Wes Jackson | ECON | [place], [place] | | + + + + + | Oziel Jackson | ECON | [place], [place] | | + + + + + Care Team Providers + +------+ + | Care Editorial Writer Name | Role | Phone | + [...] + + | Closed | Specialty | Vascular | Diagnoses | Nancy, | Field, | | | Services | Surgery / | Varicose | Rodolfo Reilly MD | Ethan Hu, | | | Required | General | veins | [address] | , [address] | | | | Surgery | | [place] | [place] | | | | | | [place] | [place], | | | | | | [address] | [place] [address] | | | | | | Phone: | Phone: | | | | | | [phone] | [phone] | | | | | | Fax: | Fax: | | | | | | [phone] | [phone] | +--------+ + + + + + Reason for Visit + + + | Reason | Comments | + + + | Hypertension | | + + + Encounter Details +--------+---------+ + + + | Date | Type | Department | Care Team | Description | +--------+---------+ + + + | 06/22/ | Office | [facility] | Rodolfo Cruz, | Other specified | | 2016 | Visit | MEDICINE [facility] [place] | [address] | hypothyroidism | | | | [address] [place] | [place] | (Primary Dx); | | | | [place] [address] | [address] | Depression with | | | | [phone] | | anxiety; Varicose | | | | | | veins; Essential | | | | | | hypertension | +--------+---------+ + + + Social History [...] + + + | Blood Pressure | 130/60 | 06/22/2015 1:05 PM | | | | | PST | | + + + + + | Pulse | 74 | 06/22/2015 1:05 PM | | | | | PST | | + + + + + | Temperature | 36.2 C (97.2 F) | 06/22/2015 1:05 PM | | | | | PST | | + + + + + | Respiratory Rate | 16 | 06/22/2015 1:05 PM | | | | | PST | | + + + + + | Oxygen Saturation | 98% | 06/22/2015 1:05 PM | | | | | PST | | + + + + + | Inhaled Oxygen | - | - | | | Concentration | | | | + + + + + | Weight | 84.4 kg (186 lb) | 06/22/2015 1:05 PM | | | | | PST | | + + + + + | Height | 162.6 cm (5' 4") | 06/22/2015 1:05 PM | | | | | PST | | + + + + + | Body Mass Index | 31.93 | 06/22/2015 1:05 PM | | | | | PST | | + + + + + documented in this encounter Progress Notes Rodolfo Cruz MD - 06/22/2015 1:21 PM PSTFormatting of this note might be different f rom the original. Subjective: Patient ID: Soumya Jackson is a 79 y.o. female. HPI Varicose Veins are bothering her. Particularly in the LLE. She is willing to see Dr Ny . She does not wear compression stockings. HTN, there is no chest pain SOB ankle swelling etc. On lasix and metoprolol without SE. I t gets too high when she eats at [employer] Hypothyroidism, She is on thyroid medication. She is compliant with the dosing. Depression with Anxiety, She is only taking one tab every other and 1/2 tab every other da y. A whole pill made her feel goofy. Her friend says thought that she has in general been miserable as of late. She had a nervous breakdown in the 60's, At that time her h ad a breakdown first. She then learned how to accomodate for this following this experienc e. 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 No joint pain, some ext pain Skin: Neg for color change,no rash and No wounds, no Strange moles Neurological: Neg for dizziness, no Weakness,no light-headedness, no numbness and no headaches. Hematological: Neg for adenopathy. Does not bruise/bleed easily. Psychiatric/Behavioral: Neg for suicidal ideas,no confusion and no agitation. some Depression, no anxiety,no sleep problems Objective: Physical Exam Heent, WNL, No carotid bruit Chest CTAB Heart RR&R /s M Abd S,NT,ND,BS+ Ext, no CCor E Neuro Non-focal Lymph, no cervical, axillary, inguinal adenopathy Musculoskeletal, no gross deformity or loss or range of motion Skin, no gross lesions Assessment: 1. Other specified hypothyroidism 2. Depression with anxiety 3. Varicose veins 4. Essential hypertension Plan: She looks and feels improved from baseline, Refer to Dr Ny. Refill the lasix, RTC 3 [facility] with labs prior Otherwise continue current medical regimen. documented in this encounter Plan of Treatment +--------+---------+ + + + | Date | Type | Specialty | Care Team | Description | +--------+---------+ + + + | 06/02/ | Office | Orthopedic Surgery | Ulysses Jensen, | | | 2019 | Visit | | [address] | | | | | | [place] | | | | | | [address] | | | | | | | | +--------+---------+ + + + | 11/21/ | Office | Cardiology | Yesi, | | | 2019 | Visit | | JOSE ALBERTO Linder [address] | | | | | | [place], | | | | | | [place] [address] | | | | | | [phone] | | | | | | | | +--------+---------+ + + + + + +--------+ + + | Name | Type | Priori | Associated Diagnoses | Order Schedule | | | | ty | | | + + +--------+ + + | Ambulatory referral | Outpatient | Routin | Varicose veins | Ordered: 06/22/2015 | | to Vascular Surgery | Referral | e | | | + + +--------+ + + documented as of this encounter Results TSH (09/26/2015 10:46 AM PDT) + + + + + + | Component | Value | Ref Range | Performed | Pathologist | | | | | At | Signature | + + + + + + | TSH | 0.85Comment: All TSH | 0.34 - 5.60 | [...] ST. | [address] | [place] | [phone] | | [facility] | | [address] | | | - LABORATORY | | | | + + + + + Comprehensive Metabolic Panel (09/26/2015 10:46 AM PDT) + + + + + + | Component | Value | Ref Range | Performed | Pathologist | | | | | At | Signature | + + + + + + | Na | 138 | 136 - 149 | [facility] | | | | | mmol/L | [facility] | | | | | | MEDICAL | | | | | | CENTER - | | | | | | LABORATORY | | + + + + + + | K | 4.1 | 3.5 - 5.1 | [facility] | [...] CO2 | 28 | 24 - 31 mmol/L | [facility] [...] + + + + | Creatinine | 0.77 | 0.60 - 1.30 | [facility] | | | | | mg/dL | [facility] | | | | | | MEDICAL | | | | | | CENTER - | | | | | | LABORATORY | | + + + + + + | eGFR if not | >60Comment: GLOMERULAR | >=60 | [facility] | | | | FILTRATION | mL/min/1.73m2 | [facility] | | | CAMEROONIAN | RATE,ESTIMATED | | MEDICAL | | | | mL/min/1.98c7Kavp than | | CENTER - | | [...] + + + + | Calcium | 9.7 | 8.3 - 10.5 | [facility] | | | | | mg/dL | [facility] | | | | | | MEDICAL | | | | | | CENTER - | | | | | | LABORATORY | | + + + + + + | Albumin | 3.8 | 3.2 - 5.0 g/dL | [facility] | | | | | | [facility] | | | | | | MEDICAL | | | | | | CENTER - | | | | | | LABORATORY | | + + + + + + | Bilirubin | 0.7 | 0.1 - 1.5 mg/dL | [facility] | | | Total | | | [facility] | | | | | | MEDICAL | | | | | | CENTER - | | | | | | LABORATORY | | + + + + + + | Total | 7.6 | 6.0 - 7.8 g/dL | [facility] | | | Protein | | | [facility] | | | | | | MEDICAL | | | | | | CENTER - | | | | | | LABORATORY | | + + + + + + | AST | 18 | 10 - 42 U/L | [facility] [...] + + + + | Alkaline | 62 | 40 - 110 U/L | [facility] [...] + + | Albumin/Sarah | 1.0 | 0.8 - 2.0 | [facility] | | | bulin Ratio | | | [facility] | | | | | | MEDICAL | | | | | | CENTER - | | | | | | LABORATORY | | + + + + + + | BUN/Creatin | 13.0 | | [facility] | | | ine [...] + + | [facility] | [address] | [place] | [phone] | | [facility] | | [address] | | | - LABORATORY | | | | + + + + + CBC with Differential (09/26/2015 10:46 AM PDT) + + + + + + | Component | Value | Ref Range | Performed | Pathologist | | | | | At | Signature | + + + + + + | WBC | 9.8 | 4.0 - 11.0 K/uL | [facility] | | | | | | [facility] | | | | | | MEDICAL | | | | | | CENTER - | | | | | | LABORATORY | | + + + + + + | RBC | 4.25 | 3.70 - 5.20 | [facility] | | | | | M/uL | [facility] | | | | | | MEDICAL | | | | | | CENTER - | | | | | | LABORATORY | | + + + + + + | Hemoglobin | 14.4 | 11.5 - 16.0 | [facility] | | | | | g/dL | [facility] | | | | | | MEDICAL | | | | | | CENTER - | | | | | | LABORATORY | | + + + + + + | Hematocrit | 43.0 | 34.0 - 47.0 % | [facility] [...] + + | MCH | 34.0 | 28.0 - 35.0 pg | [facility] [...] + + + + | RDW-CV | 13.4 | <15.0 % | [facility] | | | | | | [facility] | | | | | | MEDICAL | | | | | | CENTER - | | | | | | LABORATORY | | + + + + + + | Platelet | 355 | 140 - 440 K/uL | [facility] | | | Count | | | [facility] | | | | | | MEDICAL | | | | | | CENTER - | | | | | | LABORATORY | | + + + + + + | MPV | 9.7 | fL | [facility] | | | | | | [facility] | | | | | | MEDICAL | | | | | | CENTER - | | | | | | LABORATORY | | + + + + + + | % | 75.1 | 45.0 - 82.0 % | [facility] | | | Neutrophils | | | [facility] | | | | | | MEDICAL | | | | | | CENTER - | | | | | | LABORATORY | | + + + + + + | % | 15.2 (L) | 20.0 - 45.0 % | [facility] | | | Lymphocytes | | | [facility] | | | | | | MEDICAL | | | | | | CENTER - | | | | | | LABORATORY | | + + + + + + | % Monocytes | 6.6 | 4.0 - 12.0 % | [facility] | | | | | | [facility] | | | | | | MEDICAL | | | | | | CENTER - | | | | | | LABORATORY | | + + + + + + | % | 2.5 | 0.0 - 5.0 % | [facility] [...] + + + + | Absolute | 7.30 | 1.80 - 8.50 | [facility] | | | Neutrophils | | K/uL | [facility] | | | | | | MEDICAL | | | | | | CENTER - | | | | | | LABORATORY | | + + + + + + | Absolute | 1.50 | 0.60 - 3.20 | [facility] | | | Lymphocytes | | K/uL | [facility] | | | | | | MEDICAL | | | | | | CENTER - | | | | | | LABORATORY | | + + + + + + | Absolute | 0.60 | 0.00 - 1.00 | [facility] | [...] ST. | [address] | [place] | [phone] | | [facility] | | [address] | | | - LABORATORY | | | | + + + + + documented in this encounter Visit Diagnoses + + | Diagnosis | + + | Other specified hypothyroidism - Primary | + + | Depression with anxiety Dysthymic disorder | + + | Varicose veins Asymptomatic varicose veins | + + | Essential hypertension Unspecified essential hypertension | + + documented in this encounter
--- OUTSIDE RECORDS SUMMARY | ~2019-05-18 | XMS | Encounter Summary ---
Demographics + + + | Address | [address] | | | [place] [address] | + + + | Home Phone [...] | [facility] | | | and [place] | + + + | Organization | [facility] | | | and [...] | | | | | [place] [address] | | + + + + + | Hunter Jackson | ECON | [place] | | + + + + + | Wes Jackson | ECON | [place], [place] | | + + + + + | Oziel Jackson | ECON | [place], [place] | | + + + + + Care Team Providers + +------+ + | Care Residential Air Sealing Technician Name | Role | Phone | [...] | Specialty | Cardiology | Diagnoses | Nancy, | Mendez, | | | Services | | Essential | Rodolfo Reilly MD | MD Irina | | | Required | | hypertension | [address] | [address] | | | | | | [address] [place] | [address] | | | | | | [place], [place] | [place], | | | | | | [address] | [place] [address] | | | | | | Phone: | Phone: | | | | | | [phone] | [phone] | | | | | | Fax: | Fax: | | | | | | [phone] | [phone] | +--------+ + + + + + Evaluate & Treat (Urgent) +--------+ + + + + + | Status | Reason | Specialty | Diagnoses / | Referred By | Referred To | | | | | Procedures | Contact | Contact | +--------+ + + + + + | Closed | Specialty | Otolaryngolog | Diagnoses | Nancy, | Zion Davis | | | Services | y | Recurrent | Rodolfo Reilly MD | MD Gabriel [address] | | | Required | | epistaxis | [address] | [address] | | | | | | [place] | [address] | | | | | | [place], [place] | [place], | | | | | | [address] | [place] [address] | | | | | | Phone: | Phone: | | | | | | [phone] | [phone] | | | | | | Fax: | Fax: | | | | | | [phone] | [phone] | +--------+ + + + + + Diagnostic/Screening (Routine) +--------+--------+ [...] Pulmonary | Rodolfo Reilly MD | [address] | | | | | nodules | [address] | [place], | | | | | Procedures | [address] [place] | [place] [address] | | | | | CT Chest w | [place], [place] | Phone: | | | | | Contrast | [address] | [phone] | | | | | AFTER | Phone: | Fax: | | | | | 02/17/15 | [phone] | [phone] | | | | | | Fax: | | | | | | | [phone] | | +--------+--------+ + + + + Reason for Visit + + + | Reason | Comments | + + + | Follow-up | Back pain. Review Labs | + + + | Epistaxis | In ER at [facility] on 08/22/14 | + + + Encounter Details +--------+---------+ + + + | Date | Type | Department | Care Team | Description | +--------+---------+ + + + | 08/24/ | Office | [facility] | Rodolfo Cruz, | Insomnia (Primary | | 2015 | Visit | MEDICINE [address] | [address] | Dx); Pulmonary | | | | [address] | [place] | nodules; Recurrent | | | | [facility] [place] [address] | [address] | epistaxis; Other | | | | [phone] | | specified | | | | | | hypothyroidism; | | | | | | Depression with | | | | | | anxiety; DDD | | | | | | (degenerative disc | | | | | | disease), lumbar; | | | | | | Essential [...] + + + | Blood Pressure | 120/62 | 08/24/2014 12:43 PM | | | | | PDT | | + + + + + | Pulse | 59 | 08/24/2014 12:43 PM | | | | | PDT | | + + + + + | Temperature | 37.3 C (99.1 F) | 08/24/2014 12:43 PM | | | | | PDT | | + + + + + | Respiratory Rate | 16 | 08/24/2014 12:43 PM | | | | | PDT | | + + + + + | Oxygen Saturation | 97% | 08/24/2014 12:43 PM | | | | | PDT | | + + + + + | Inhaled Oxygen | - | - | | | Concentration | | | | + + + + + | Weight | 85.7 kg (189 lb) | 08/24/2014 12:43 PM | | | | | PDT | | + + + + + | Height | 165 cm (5' 4.96") | 08/24/2014 12:43 PM | | | | | PDT | | + + + + + | Body Mass Index | 31.49 | 08/24/2014 12:43 PM | | | | | PDT | | + + + + + documented in this encounter Progress Notes Rodolfo Cruz MD - 08/24/2014 1:07 PM PDTFormatting of this note might be different f rom the original. Subjective: Patient ID: Soumya Jackson is a 79 y.o. female. HPI Epistaxis, Recurrent, She would like another visit with Dr Davis. Multilevel Thoracic Spine DDD, DJD, She takes one hydrocodone per day for this. She would like to try physical therapy for this. This is much better today But in recent times it gutierrez s been killing her. She is sleeping on a warm rice bag which really seems to be helping. Hypothyroidism, She is on thyroid medication. She is compliant with the dosing. She Saw D r Z and back does not really hurt. Depression with Anxiety, She is somewhat improved with the lexapro which she is taking fifi f of the dose. Her friend says thought that she has in general been miserable as of late. She had a nervous breakdown in the 60's, She then learned how to accomodate for this follow ing this experience. Review of Systems Constitutional: no fever, No [...] swelling and No ar thralgias. No joint pain Skin: Neg for color [...] motion Skin, no gross lesions Assessment: 1. Insomnia eszopiclone (LUNESTA) 2 MG TABS 2. Pulmonary nodules CT Chest w Contrast 3. Recurrent epistaxis * [facility] [place] Otol[facility] - AMB Referral CANCELED: Ambulatory referral to ENT 4. Other specified hypothyroidism TSH T4, Free 5. Depression with anxiety 6. DDD (degenerative disc disease), lumbar 7. Essential hypertension Ambulatory referral to Cardiology Plan: CT in 6 months, refer to ENT. TSH and free T4 in 1 month. Increase the lexapro to 10mg da saba. RTC2 months. Otherwise continue current medical regimen. documented in [...] [place] | | | | | | [address] | | | | | | | | +--------+---------+ + + + | 11/21/ | Office | Cardiology | Yesi, | | | 2019 | Visit | | JOSE ALBERTO Linder [address] | | | | | | [address] [place], | | | | | | [place] [address] | | | | | | [phone] | | | | | | | | +--------+---------+ + + + + + +--------+ + + | Name | Type | Priori | Associated Diagnoses | Order Schedule | | | | ty | | | + + +--------+ + + | * [facility] [place] | Outpatient | Routin | Recurrent | Ordered: 08/24/2014 | | Otolaryngology - AMB | Referral | e | epistaxis | | | Referral | | | | | + + +--------+ + + | Ambulatory referral | Outpatient | Routin | Essential | Ordered: 08/24/2014 | | to Cardiology | Referral | e | hypertension | | + + +--------+ + + documented as of this encounter Results CT Chest w Contrast (03/23/2015 12:06 PM PST) + + | Specimen | + + | | + + + + + | Narrative | Performed At | + + + | CT CHEST W CONTRAST 03/23/2015 11:58 AM HISTORY: Pulmonary | [facility] | | nodules. COMPARISON: 08/18/2014, 02/22/2014. PROTOCOL: Axial | . [facility] | | images of the chest were obtained after uneventful administration of | [facility] | | 75 mL Omnipaque 350. Coronal and sagittal reformations were acquired. 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 | | | The heart is of normal size. Moderate to severe coronary | | | calcifications are present. There are thick mitral valve | | | calcifications. There is mild atherosclerosis of the aorta extending | | | into the branches. The pulmonary arteries are unremarkable. SVC is | | | normal. No enlarged lymph nodes are seen in the mediastinum, sheila, | | | or axilla. Trachea and esophagus demonstrate no acute findings. | | | At least 6 nodules are visualized of the right lung with the largest | | | measuring 0.7 cm in the right upper lobe along the major fissure | | | (image 53). At least 5 nodules are seen in the left lung with the | | | largest measuring 0.8 cm in the left lower lobe (image 65). These | | | remain stable dating back to 02/22/2014. There is mild centrilobular | | | emphysema of the bilateral lungs. Mild dependent atelectasis is | | | present. No pleural effusion or pneumothorax is seen. The upper | | | abdomen demonstrates no acute findings. Chest wall structures are | | | normal. There is mild thoracic spondylosis. Diffuse osteopenia is | | | noted. IMPRESSION - Stable nodules of bilateral lungs with the | | | largest measuring 0.8 cm in the left lower lobe. According to the | | | recommendations of the Fleischner Society, another CT scan would be | | | recommended in March 2016 to complete follow-up. Dictated | | | and Signed by: Faustino Olivas MD Electronically signed: 03/23/2015 | | | 4:41 PM | | + + + + + | Procedure Note | + + | Remington, Rad Results In - 03/23/2015 4:[address] CHEST W CONTRAST 03/23/2015 11:58 AM | | | | HISTORY: Pulmonary nodules. | | | | COMPARISON: 08/18/2014, 02/22/2014. | | | | PROTOCOL: Axial images of the chest were obtained after uneventful | | administration of 75 mL Omnipaque 350. Coronal and sagittal reformations were | | acquired. 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 | | | | The heart is of normal size. Moderate to severe coronary calcifications are | | present. There are thick mitral valve calcifications. There is mild | | atherosclerosis of the aorta extending into the branches. The pulmonary arteries | | are unremarkable. SVC is normal. | | | | No enlarged lymph nodes are seen in the mediastinum, sheila, or axilla. Trachea | | and esophagus demonstrate no acute findings. | | | | At least 6 nodules are visualized of the right lung with the largest measuring | | 0.7 cm in the right upper lobe along the major fissure (image 53). At least 5 | | nodules are seen in the left lung with the largest measuring 0.8 cm in the left | | lower lobe (image 65). These remain stable dating back to 02/22/2014. There is | | mild centrilobular emphysema of the bilateral lungs. Mild dependent atelectasis | | is present. No pleural effusion or pneumothorax is seen. | | | | The upper abdomen demonstrates no acute findings. | | | | Chest wall structures are normal. There is mild thoracic spondylosis. Diffuse | | osteopenia is noted. | | | | IMPRESSION - | | Stable nodules of bilateral lungs with the largest measuring 0.8 cm in the left | | lower lobe. According to the recommendations of the Fleischner Society, another | | CT scan would be recommended in March 2016 to complete follow-up. | | | | | | Dictated and Signed by: Faustino Olivas MD | | Electronically signed: 03/23/2015 4:41 PM | + + + + + + + | Performing | Address | City/State/Zipcode | Phone Number | | Organization | | | | + + + + + | [facility] | [address] | [place] | [phone] | | [facility] | | [address] | | | - IMAGING | | | | + + + + + T4, Free (10/25/2014 3:05 PM PDT) + +---------+ + + + | Component | Value | Ref Range | Performed | Pathologist | | | | | At | Signature | + +---------+ + + + | FT4 | 1.7 (H) | 0.6 - 1.1 ng/dL | [facility] | | | | | [...] + + | [facility] | [address] | [place] | [phone] | | [facility] | | [address] | | | - LABORATORY | | | | + + + + + TSH (10/25/2014 3:05 PM PDT) + + + + + + | Component | Value | Ref Range | Performed | Pathologist | | | | | At | Signature | + + + + + + | TSH | 0.30 (L)Comment: All TSH | 0.34 - 5.60 | [facility] | | | | samples are screened | uIU/mL | [facility] | | | | using a 2nd [...] + | [facility] | [address] | [place] | [phone] | | [facility] | | [address] | | | - LABORATORY | | | | + + + + + documented in this encounter Visit Diagnoses + + | Diagnosis | + + | Insomnia - Primary Insomnia, unspecified | + + | Pulmonary nodules Other nonspecific abnormal finding of lung field | + + | Recurrent epistaxis Epistaxis | + + | Other specified hypothyroidism | + + | Depression with anxiety Dysthymic disorder | + + | DDD (degenerative disc disease), lumbar Degeneration of lumbar or lumbosacral | | intervertebral disc | + + | Essential hypertension Unspecified essential hypertension | + + documented in this encounter
--- OUTSIDE RECORDS SUMMARY | ~2019-05-18 | XMS | Encounter Summary ---
Demographics + + + | Address | [address] | | | [place] [address] | + + + | Home Phone | | + + + | Preferred Language | Unknown | + + + | Marital Status | | + + + | Mormonism Affiliation | Unknown | + + + | Race | Unknown | + + + | Ethnic Group | Unknown | + + + Author + + + | Author | [facility] | | | and [place] | + + + | Organization | [facility] | [...] [place] | | | | | [place] [address] | | + + + + + | Hunter Jackson | ECON | [place] | | + + + + + | Wes Jackson | ECON | [place], [place] | | + + + + + | Oziel Jackson | ECON | [place], [place] | | + + + + + Care Team Providers + +------+ + | Care Religious Education Coordinator Name | Role | Phone | + [...] Description | +--------+--------+ + + + | 09/24/ | Refill | [facility] [place] | Yesi, | Medication Refill | | 2018 | | CARDIOLOGY [address] | JOSE ALBERTO Linder [address] | | | | | [place], | [place], | | | | | [place] [address] | [place] [address] | | | | | [phone] | [phone] | | | | | | | [...] [address] | | | | | | [id number] | | | | | | | | +--------+---------+ + + + | 11/21/ | Office | Cardiology | Yesi, | | | 2019 | Visit | | JOSE ALBERTO Linder [address] | | | | | | [address] | | | | | | [place] [address] | | | | | | [phone] | | | | | | | | +--------+---------+ + + + documented as of this encounter Visit Diagnoses Not on filedocumented in this encounter"
--- OUTSIDE RECORDS SUMMARY | ~2019-05-18 | XMS | Encounter Summary ---
Demographics + + + | Address | [address] | | | [place] [address] | + + + | Home Phone | | + + + | Preferred Language | Unknown | + + + | Marital Status | | + + + | Tenriism Affiliation | Unknown | + + + | Race | Unknown | + + + | Ethnic Group | Unknown | + + + Author + + + | Author | [facility] | | | and [place] | + + + | Organization | [facility] | | | [...] [place] | | | | | [place] [address] | | + + + + + | Hunter Jackson | ECON | [place] | | + + + + + | Wes Jackson | ECON | [place], [place] | | + + + + + | Oziel Jackson | ECON | [place], [place] | | + + + + + Care Team Providers + +------+ + | Care Woodworking Shop Hand Name | Role | Phone | + [...] + + | 06/02/ | Telephone | [facility] | Harsha Selby | Appointment (post | | 2017 | | PHYSIATRY [address] | TMD [address] | injection) | | | | [place], | [address] [place] [address] | | | | | [place] [address] | [address] | | | | | [phone] | | | +--------+ + + + [...] | Office | Orthopedic Surgery | Ulysses Jesnen, | | | 2019 | Visit | | MD Danny [address] | | | | | | [place] [address] | | | | | | [address] | | | | | | | | +--------+---------+ + + + | 11/21/ | Office | Cardiology | Yesi, | | | 2019 | Visit | | JOSE ALBERTO Linder [address] | | | | | | [place] | | | | | | [place] [address] | | | | | | [phone] | | | | | | | | +--------+---------+ + + + documented as of this encounter Visit Diagnoses Not on filedocumented in this encounter"
--- OUTSIDE RECORDS SUMMARY | ~2019-05-18 | XMS | Clinical Summary ---
Demographics + + + | Address | [address] | | | [place] [address] | + + + | Home Phone [...] Team Providers + +------+ + | Care Automotive Paint Technician Name | Role | Phone | + +------+ + PCP | Unavailable | + +------+ + Source Comments [facility] is fully live on both [facility] and [facility] Allergies Not on File Medications Not on file Active Problems Not [...] recent travel history available. | + + Last Filed Vital Signs Not on file Plan of Treatment + + + + + | Health Maintenance | Due Date | Last Done | Comments | + + + + + | Pneumococcal | | | | | vaccination (1 of 2 | 3 | | | | - PCV13) | | | | + + + + + | Influenza (Flu) | | | | | vaccination (#1) | 9 | | | + + + + + Results Not on filefrom Last 3 Months Insurance + +--------+ +--------+ + +--------+ | Payer | Benefi | Subscriber | Effect | Phone | Address | Type | | | t Plan | ID | faiza | | | | | | / | | Dates | | | | | | Group | | | | | | + +--------+ +--------+ + +--------+ | MEDICARE | MEDICA | xxxxxxxxxx | 08/11/19 | [phone] | [address] | Medica | | | RE A & | | 03-Pre | 1 | [address] | re | | | B | | sent | | [place] | | | | | | | | [address] | | + +--------+ +--------+ + +--------+ | MODA | MODA | xxxxxxxxx | Effect | [phone] | [address] | PPO | | | CONNEX | | fiaza | 4 | [address] | | | | [place] | | for | | [place], | | | | | | all | | [place] [address] | | | | | | dates | | | | + +--------+ +--------+ + +--------+ + +--------+ +--------+ + + | Guarantor Name | Accoun | Relation to | Date | Phone | Billing Address | | | t Type | Patient | of | | | | | | | | | | + +--------+ +--------+ + + | Soumya Jackson | Person | Self | [birth year] | [address] | | | al/Fam | | 1936 | [phone] | [place] [address] | | | saba | | | 9 (Home) | | + +--------+ +--------+ + +"
--- OUTSIDE RECORDS SUMMARY | ~2019-05-18 | XMS | Encounter Summary ---
Demographics + + + | Address | [address] | | | [place] [address] | + + + | Home Phone | | + + + | Preferred Language | Unknown | + + + | Marital Status | | + + + | Mosque Affiliation | Unknown | + + + | Race | Unknown | + + + | Ethnic Group | Unknown | + + + Author + + + | Author | [facility] | | | and [place] | + + + | Organization | [facility] | | | and [...] | | | | | [place] [address] | | + + + + + | Hunter Jackson | ECON | [place], [place] | | + + + + + | Wes Jackson | ECON | [place], [place] | | + + + + + | Oziel Jackson | ECON | [place], [place] | | + + + + + Care Team Providers + +------+ + | Care Supervisor Warping Department Name | Role | Phone | + [...] | +--------+ + + + + | 06/18/ | Telephone | [facility] [place] | Yesi, | Appointment | | 2016 | | BECCA [address] | JOSE ALBERTO Linder [address] | | | | | [place], | [place], | | | | | [place] [address] | [place] [address] | | | | | [phone] | [phone] | | | | | | | [...] STREET[address] | | | | | | [address] | | | | | | | | +--------+---------+ + + + | 11/21/ | Office | Cardiology | Yesi | | | 2019 | Visit | | JOSE ALBERTO Linder [address] | | | | | | [place] | | | | | | [place] [address] | | | | | | [phone] | | | | | | | | +--------+---------+ + + + documented as of this encounter Visit Diagnoses Not on filedocumented in this encounter"
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
--- OUTSIDE RECORDS SUMMARY | ~2019-05-18 | XMS | Encounter Summary ---
Demographics + + + | Address | [address] | | | [place] [address] | + + + | Home Phone | | + + + | Preferred Language | Unknown | + + + | Marital Status | | + + + | Hindu Affiliation | Unknown | + + + | Race | Unknown | + + + | Ethnic Group | Unknown | + + + Author + + + | Author | [facility] | | | and [place] | + + + | Organization | [facility] | | | and [...] | | | | | [place] [address] | | + + + + + | Hunter Jackson | ECON | [place] | | + + + + + | Wes Jackson | ECON | [place], [place] | | + + + + + | Oziel Jackson | ECON | [place], [place] | | + + + + + Care Team Providers + +------+ + | Care Barrow Worker Name | Role | Phone | [...] + | 05/17/ | Telephone | [facility] | Yesi, | Lab Order (due for | | 2015 | | CARDIOLOGY [address] | JOSE ALBERTO Linder [address] | fasting labs) | | | | [place], | [place], | | | | | [place] [address] | [place] [address] | | | | | [phone] | | | | | | | [...] STREETER | | | | | | [address] | | | | | | | | +--------+---------+ + + + | 11/21/ | Office | Cardiology | Yesi, | | | 2019 | Visit | | JOSE ALBERTO Linder [address] | | | | | | [place] | | | | | | [place] [address] | | | | | | [phone] | | | | | | | | +--------+---------+ + + + documented as of this encounter Visit Diagnoses + + | Diagnosis | + + | Hyperlipidemia, unspecified hyperlipidemia - Primary | + + documented in this encounter"
--- OUTSIDE RECORDS SUMMARY | ~2019-05-18 | XMS | Encounter Summary ---
Demographics + + + | Address | [address] | | | [place] [address] | + + + | Home Phone [...] | Author | [facility] | | | and [place] | + + + | Organization | [facility] | | | and [place] | + + + | Address | Unknown | + + + | Phone | Unavailable | + + + Support + + + + + | Name | Relationship | Address | Phone | + + + + + | Osmin Jackson | ECON | [address] | | | | | [place] [address] | | + + + + + | Hunter Jackson | ECON | [place] | | + + + + + | Wes Jackson | ECON | [place], [place] | | + + + + + | Oziel Jackson | ECON | [place], [place] | | + + + + + Care Team Providers + +------+ + | Care Aerodynamics Teacher Name | Role | Phone | + +------+ + | Kellie Gunderson | PCP | | + +------+ + Reason for Visit +--------+ + | Reason | Comments | +--------+ + | Other | PT CALLED TO CANCEL SLEEP STUDY/NO LONGER WANTS IT | +--------+ + Encounter Details +--------+ + + + + | Date | Type | Department | Care Team | Description | +--------+ + + + + | 08/05/ | Telephone | [facility] | Braulio León | Garry (PT CALLED TO | | 2018 | | MED CTR SLEEP | MD [address] | CANCEL SLEEP | | | | [facility] [address] | [address] [place] | STUDY/NO LONGER | | | | [place], [place] | [place] [address] | WANTS IT) | | | | [address] | [phone] | | | | | [phone] | | | +--------+ + + + [...] STREET[address] | | | | | | [address] | | | | | | | | +--------+---------+ + + + | 11/21/ | Office | Cardiology | Yesi, | | | 2020 | Visit | | JOSE ALBERTO Linder [address] | | | | | | [place], | | | | | | [place] [address] | | | | | | [phone] | | | | | | | | +--------+---------+ + + + documented as of this encounter Visit Diagnoses Not on filedocumented in this encounter"
--- OUTSIDE RECORDS SUMMARY | ~2019-05-18 | XMS | Encounter Summary ---
Demographics + + + | Address | [address] | | | [place] [address] | + + + | Home Phone | | + + + | Preferred Language | Unknown | + + + | Marital Status | | + + + | Taoist Affiliation | Unknown | + + + | Race | Unknown | + + + | Ethnic Group | Unknown | + + + Author + + + | Author | [facility] | | | and [place] | + + + | Organization | [facility] | | [...] | | | | | [place] [address] | | + + + + + | Hunter Jackson | ECON | [place] | | + + + + + | Wes Jackson | ECON | [place], [place] | | + + + + + | Oziel Jackson | ECON | [place], [place] | | + + + + + Care Team Providers + +------+ + | Care Venetian Blind Tape Cutter Name | Role | Phone | [...] Description | +--------+--------+ + + + | 07/11/ | Refill | [facility] | Rodolfo Cruz, | Medication Refill | | 2012 | | MEDICINE [place] | [address] | | | | | [address] | [place] | | | | | [place] | [address] | | | | | [address] | | | | | | [phone] | | | +--------+--------+ + + + [...] | | | | | | [place] [address] | | | | | | [phone] | | | | | | | | +--------+---------+ + + + documented as of this encounter Visit Diagnoses Not on filedocumented in this encounter"
--- OUTSIDE RECORDS SUMMARY | ~2019-05-18 | XMS | Encounter Summary ---
Demographics + + + | Address | [address] | | | [place] [address] | + + + | Home Phone [...] | Author | [facility] | | | and [place] | + + + | Organization | [facility] | | | and [place] | + + + | Address | Unknown | + + + | Phone | Unavailable | + + + Support + + + + + | Name | Relationship | Address | Phone | + + + + + | Osmin Jackson | ECON | [address] | | | | | [place] [address] | | + + + + + | Hunter Jackson | ECON | [place] | | + + + + + | Wes Jackson | ECON | [place], [place] | | + + + + + | Oziel Jackson | ECON | [place], [place] | | + + + + + Care Team Providers + +------+ + | Care Ethanol Operator Name | Role | Phone | + +------+ + | Rodolfo Cruz MD | PCP | | + +------+ + Encounter Details +--------+ + + + + | Date | Type | Department | Care Team | Description | +--------+ + + + + | 12/24/ | Hospital | [facility] | Rodolfo Cruz, | Right foot pain | | 2013 | Encounter | MED CTR DIONE XRAY | MD [address] | | | | | [address] [place] | [place], [place] | | | | | [place] | [address] | | | | | [address] | | | | | | [phone] | | | +--------+ + + + [...] | | | | | [place], [place] | | | | | | [address] | | | | | | | | +--------+---------+ + + + | 11/21/ | Office | Cardiology | Yesi, | | | 2019 | Visit | | JOSE ALBERTO Linder [address] | | | | | | [place], | | | | | | [place] [address] | | | | | | [phone] | | | | | | | [...] and Signed by: | | | Lauri Collnis MD Electronically signed: 12/24/2013 1:00 PM | [...] + | MISCELLANEOUS LAB | | | [phone] | + +---------+ + + | MISCELANIOUS LAB | | | [phone] | + +---------+ + + documented in this encounter Visit Diagnoses + + | Diagnosis | + + | Right foot pain Pain in limb | + + documented in this encounter"
--- OUTSIDE RECORDS SUMMARY | ~2019-05-18 | XMS | Encounter Summary ---
Demographics + + + | Address | [address] | | | [place] [address] | + + + | Home Phone [...] | Author | [facility] | | | and [place] | + + + | Organization | [facility] | | [...] | | | | | [place] [address] | | + + + + + | Hunter Jackson | ECON | [place] | | + + + + + | Wes Jackson | ECON | [place], [place] | | + + + + + | Oziel Jackson | ECON | [place], [place] | | + + + + + Care Team Providers + +------+ + | Care Hotel Recreational Facilities Manager Name | Role | Phone | + [...] Description | +--------+--------+ + + + | 01/26/ | Refill | [facility] | Rodolfo Cruz, | Medication Refill | | 2015 | | MEDICINE [address] | [address] | | | | | [place] | [place] | | | | | [place] [address] | [address] | | | | | [phone] | | | +--------+--------+ + + + [...] | | | | | | [place] [address] | | | | | | [phone] | | | | | | | | +--------+---------+ + + + documented as of this encounter Visit Diagnoses Not on filedocumented in this encounter"
--- OUTSIDE RECORDS SUMMARY | ~2019-05-18 | XMS | Encounter Summary ---
Demographics + + + | Address | [address] | | | [place] [address] | + + + | Home Phone [...] | Author | [facility] | | | and [place] | + + + | Organization | [facility] | | | and [place] | + + + | Address | Unknown | + + + | Phone | Unavailable | + + + Support + + + + + | Name | Relationship | Address | Phone | + + + + + | Osmin Jackson | ECON | [address] | | | | | [place] [address] | | + + + + + | Hunter Jackson | ECON | [place] | | + + + + + | Wes Jackson | ECON | [place], [place] | | + + + + + | Oziel Jackson | ECON | [place], [place] | | + + + + + Care Team Providers + +------+ + | Care Bundling Machine Operator Name | Role | Phone [...] of right | [address] | [place] [address] | | | | | shoulder | [place], | Phone: | | | | | Follow Up | [place] [address] | [phone] | | | | | Right | Phone: | Fax: | | | | | Shoulder and | [phone] | [phone] | | | | | Right [facility] | Fax: | | | | | | Injection | [phone] | | | | | | Last [...] Visit | ORTHOPEDIC SURGERY | MD [address] [facility] | carpometacarpal | | | | [address] [facility] | [place] | ([facility]) joint of right | | | | [place], [place] | [address] | thumb (Primary Dx); | | | | [address] | | Rotator cuff tear | | | | [phone] | | arthropathy of right | | [...] STREETER | | | | | | [address] | | | | | | | | +--------+---------+ + + + | 11/21/ | Office | Cardiology | Yesi, | | | 2019 | Visit | | JOSE ALBERTO Linder [address] | | | | | | [place], | | | | | | [place] [address] | | | | | | [phone] | | | | | | | [...]
--- OUTSIDE RECORDS SUMMARY | ~2019-05-18 | XMS | Clinical Summary ---
Demographics + + + | Address | [address] | | | [place] [address] | + + + | Home Phone [...] | [facility] | | | and [place] | + + + | Organization | [facility] | | | and [place] | + + + | Address | Unknown | + + + | Phone | Unavailable | + + + Support + + + + + | Name | Relationship | Address | Phone | + + + + + | Osmin Jackson | ECON | [address] | | | | | [place] [address] | | + + + + + | Hunter Jackson | ECON | [place] | | + + + + + | Wes Jackson | ECON | [place], [place] | | + + + + + | Oziel Jackson | ECON | [place], [place] | | + + + + + Care Team Providers + +------+ + | Care Handle Maker Name | Role | Phone | + +------+ + | Gunderson, Kellie PA | PCP | | + +------+ + Allergies + + + + + + | Active Allergy | Reactions | Severity | Noted | Comments | | | | | Date | | + + + + + + | Alendronate Sodium | | | | Patient not | | | | | | remember | + + + + + + | Celecoxib | | | | Celebrex - Patient | | | | | | not remember | + + + + + + | Diclofenac Sodium | Other (See Comments) | Medium | 11/06/19 | Duodenal Ulcer | | | | | 14 | October 2013 | + + + + + + | Iodinated Diagnostic | Hives | High | 10/16/19 | | | Agents | | | 17 | | + + + + + + | Nsaids | Other (See Comments) | Low | | | + + + + + + | Penicillins | Diarrhea | Low | | Caused "black | | | | | | diarrhea" when she | | | | | | had her 4th child. | + + + + + + | Risedronate Sodium | | | | Actonel - Patient | | | | | | not remember | + + + + + + | Yellow Dye | Itching | Low | 10/16/19 | | | | | | 17 | | + + + + + + Medications + + + +---------+------+------+-------+ | Medication | Sig | Dispensed | Refills | Star | End | Statu | | | | | | t | Date | s | | | | | | Date | | | + + + +---------+------+------+-------+ | L-Lysine HCl 500 | Take 500 mg by mouth | | 0 | 01/10 | | Activ | | MG CAPS | Daily. | | | 07/29 | | e | | | | | | 12 | | | + + + +---------+------+------+-------+ | Melatonin | Take 5 mg by mouth | | 0 | 09/1 | | Activ | | (MELATONIN MAXIMUM | Daily as needed. | | | 20 | | e | | STRENGTH) 5 MG TABS | | | | 12 | | | + + + +---------+------+------+-------+ +---+ + | | Additional | | | informationPatient | | | taking differently: | | | 10 mg Oral DAILY | | | PRN, Reported on | | | 01/15/2018 11:01 AM | +---+ + + + +---------+---+------+---+-------+ | magnesium-calcium | Take 71.5-119 mg by | | 0 | 01/10 | | Activ | | carbonate (SLOW-MAG) | mouth Daily. | | | 320 | | e | | 71.5-119 MG TBEC | | | | 12 | | | + + +---------+---+------+---+-------+ | Calcium | TABS Take one by | | 0 | / | | Activ | | Citrate-Vitamin D | mouth three times | | | 3/20 | | e | | (CITRACAL MAXIMUM | daily. | | | 12 | | | | PO) | | | | | | | + + +---------+---+------+---+-------+ | Multiple | Take by mouth | | 0 | | | Activ | | Vitamins-Minerals | Daily. | | | | | e | | (OCUVITE ADULT 50+) | | | | | | | | CAPS | | | | | | | + + +---------+---+------+---+-------+ | vitamin B-12 | Take 1,000 mcg by | | 0 | | | Activ | | (CYANOCOBALAMIN) | mouth Daily. | | | | | e | | 1000 MCG tablet | | | | | | | + + +---------+---+------+---+-------+ | Cholecalciferol | Take 5,000 Units by | | 0 | 09/1 | | Activ | | (D-5000 PO) | mouth Daily. | | | 320 | | e | | | | | | 12 | | | + + +---------+---+------+---+-------+ | GARLIC | Take 1,000 mg by | | 0 | | | Activ | | | mouth Daily. | | | | | e | + + +---------+---+------+---+-------+ | BIOTIN PO | Take 500 mg by mouth | | 0 | | | Activ | | | Daily. | | | | | e | + + +---------+---+------+---+-------+ | diclofenac | Apply 1 g topically | 100 g | 0 | 09/2 | | Activ | | (VOLTAREN) 1% | Daily as needed. | | | 2/20 | | e | | GELIndications: | | | | 15 | | | | Primary | | | | | | | | osteoarthritis | | | | | | | | involving multiple | | | | | | | | joints | | | | | | | + + +---------+---+------+---+-------+ | omeprazole | Take 20 mg by mouth | | 0 | 04/0 | | Activ | | (PRILOSEC) 20 mg | every morning | | | 4/20 | | e | | capsule | (before breakfast). | | | 17 | | | + + +---------+---+------+---+-------+ | aspirin 81 mg | Take 2 tablets by | 30 | 2 | 06/2 | | Activ | | chewable tablet | mouth Daily. | tablet | | 8/20 | | e | | | | | | 17 | | | + + +---------+---+------+---+-------+ | gabapentin | Take 300 mg by mouth | | 0 | | | Activ | | (NEURONTIN) 300 mg | once. | | | | | e | | capsule | | | | | | | + + +---------+---+------+---+-------+ | busPIRone (BUSPAR) | Take 5 mg by mouth | | 0 | 04/0 | | Activ | | 5 mg tablet | Daily. Can take | | | 5/20 | | e | | | twice a day if | | | 18 | | | | | needed | | | | | | + + +---------+---+------+---+-------+ | | Take 1 tablet by | | 0 | 04/0 | | Activ | | HYDROcodone-acetamin | mouth Daily. Takes | | | 09/28 | | e | | ophen (NORCO) | 1/2 in the AM and | | | 18 | | | | 7.5-325 mg per | 1/2 in the PM | | | | | | | tablet | | | | | | | + + +---------+---+------+---+-------+ | DULoxetine | | | 0 | 08 | | Activ | | (CYMBALTA) [address] | | | | 05/31 | | e | | capsule | | | | 18 | | | + + +---------+---+------+---+-------+ | levothyroxine | | | 0 | 12/10 | | Activ | | (SYNTHROID) 88 mcg | | | | 09/28 | | e | | tablet | | | | 18 | | | + + +---------+---+------+---+-------+ | furosemide (LASIX) | Take 20 mg by mouth | | 0 | 02/09 | | Activ | | 20 mg tablet | Daily. | | | 07/01 | | e | | | | | | 18 | | | + + +---------+---+------+---+-------+ | Docusate Calcium | Take 1 tablet by | | 0 | | | Activ | | (STOOL SOFTENER PO) | mouth Daily. | | | | | e | + + +---------+---+------+---+-------+ | B Complex Vitamins | Take 1 tablet by | | 0 | | | Activ | | (VITAMIN B COMPLEX | mouth Daily. | | | | | e | | PO) | | | | | | | + + +---------+---+------+---+-------+ | lisinopril | TAKE TWO TABLETS BY | 180 | 3 | 07/1 | | Activ | | (PRINIVIL, ZESTRIL) | MOUTH EVERY DAY | tablet | | 0/20 | | e | | 10 mg tablet | | | | 19 | | | + + +---------+---+------+---+-------+ | isosorbide | TAKE ONE TABLET BY | 90 | 3 | 07/1 | | Activ | | mononitrate (IMDUR) | MOUTH DAILY | tablet | | 0/20 | | e | | 30 mg ER tablet | | | | 19 | | | + + +---------+---+------+---+-------+ | atorvaSTATin | TAKE ONE TABLET BY | 90 | 3 | 07/1 | | Activ | | (LIPITOR) 40 mg | MOUTH EVERY DAY IN | tablet | | 0/20 | | e | | tablet | THE EVENING | | | 19 | | | + + +---------+---+------+---+-------+ | amLODIPine | Take 1 tablet by | 90 | 3 | 07/1 | | Activ | | (NORVASC) 5 mg | mouth Daily. | tablet | | 0/20 | | e | | tablet | | | | 19 | | | + + +---------+---+------+---+-------+ Active Problems + + + | Problem | Noted Date | + + + | Chest pain | 04/22/2018 | + + + + + | Overview: Stress test done on 10/16/17 shows regadenoson EKG is | | negative, normal Regadenoson Sestamibi myocardial perfusion | | study with a normal left ventricular size and wall thickness, | | evidence of inferior wall soft tissue attenuation, preserved left | | ventricular systolic function, LVEF by gated SPECT 76 %. Irina | | MD Mendez | + + + + + | Coronary artery disease involving sleetmute coronary artery of | 11/02/2016 | | sleetmute heart with unstable angina pectoris | | + + + + + | Overview: Left Heart Catheterization 10/16/2016 shows severe | | three-vessel coronary artery disease, high-grade 90% stenosis to | | the proximal portion of the LAD, proximal portion of the first | | diagonal artery, midportion of the left circumflex artery, there | | is also high-grade 90% stenosis sequential lesions at the | | proximal and midportion of the RCA, there is a right dominate | | circulation, normal LV systolic function with an EF of 65% | | systemic blood pressure is normal, there was successful | | hemostasis with a TR hemostatic band. 11/01/2016: Coronary artery | | bypass grafting x3 (VERDUZCO-LAD, rSVG-Diag, rSVG-RCA) LVEF 65% | | prostoperatively. ORA Echocardiogram 11/01/2016 shows normal LV | | function EF 65, mild concentric hypertrophy (11 mm) normal wall | | motion, normal RV, normal atria and LA appendage, no shunt by | | CFD. Calcifed ~ 1 cm area in posterior mitral annulus, otherwise | | valve structure relatively normal, mild central MR, trace central | | AI, no , trace TR, trace GA, normal aorta other than mild | | calcification at ST junction, normal diameter, normal PA, no | | effusions.Vas segmental pressures legs 07/02/2017 Normal segmental | | pressures of lower extremities. Faustino Olivas MD Last Assessment | | & Plan: POD #6 Coronary artery bypass grafting x3 (VERDUZCO-LAD, | | rSVG-Diag, rSVG-RCA) LVEF 65% prostoperatively. | + + + + + | Stress hyperglycemia | 11/02/2016 | + + + | Cervical radiculopathy | 08/29/2016 | + + + | Stenosis of cervical spine | 07/25/2016 | + + + | Foraminal stenosis of cervical region | 07/25/2016 | + + + | DDD (degenerative disc disease), cervical | 07/25/2016 | + + + | Hives of unknown origin | 11/07/2015 | + + + | Stress reaction | 11/07/2015 | + + + | Allergic rhinitis | 09/26/2015 | + + + | Varicose veins | 06/22/2015 | + + + | Essential hypertension with goal blood pressure less than 130/80 | 06/22/2015 | + + + | URI (upper respiratory infection) | 03/15/2015 | + + + | Neuropathy | 01/31/2015 | + + + | Tinea corporis | 01/31/2015 | + + + | Generalized anxiety disorder | 01/31/2015 | + + + | Other specified anemias | 10/25/2014 | + + + | Chronic low back pain | 08/24/2014 | + + + | DDD (degenerative disc disease), lumbar | 08/24/2014 | + + + | Facet arthritis of lumbar region | 08/24/2014 | + + + | Inflammation of blood vessels | 08/18/2014 | + + + | Depression with anxiety | 06/16/2014 | + + + | Pulmonary nodule, right | 06/16/2014 | + + + | Epistaxis | 03/29/2014 | + + + | Thoracic back pain | 03/03/2014 | + + + | Right foot pain | 12/24/2013 | + + + | 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 | + + + | Pulmonary nodules | 12/08/2013 | + + + | Anemia | 11/24/2013 | + + + + + | Last Assessment & Plan: H/H stable | + + + + + | UGIB (upper gastrointestinal bleed) | 11/14/2013 | + + + | Constipation | 11/08/2013 | + + + | PUD (peptic ulcer disease) | 11/08/2013 | + + + | GI bleed | 11/03/2013 | + + + | Anemia due to blood loss, acute | 11/03/2013 | + + + | Troponin I above reference range | 11/03/2013 | + + + | Lytic lesion of bone on x-ray | 11/03/2013 | + + + + + | Overview: Actually on MRI scan of T spine 2013 | + + + + + | Elevated troponin | 11/03/2013 | + + + + + | Overview: Echocardiogram, 11/03/2013 shows normal LV size and | | systolic function with LVEF 63%, mild aortic, mitral, and | | tricuspid insufficiency, RVSP 43-48 mm mercury, borderline to | | mild biatrial enlargement, compared to patient's prior study | | 2010, no significant changes are noted. | + + + + + | DJD (degenerative joint disease) | 07/08/2013 | + + + | Bronchitis | 12/29/2012 | + + + | Right ankle pain | 09/03/2012 | + + + | Gastroenteritis | 09/03/2012 | + + + | Multiple contusions | 06/02/2012 | + + + | Preventative health care | 05/28/2012 | + + + + + | Overview: CRSC:03/28/2010 Next Due: Diverticulosis in | | the sigmoid colon. One 2 mm polyp in the rectum (benign | | appearing) Resected and retrieved. Non bleeding internal | | hemorrhoids. Mammo:05/18/2009 Normal Next:Pap:07/19/2008 Normal | | Next: | | | |Pap:07/19/2008 Normal | | Next: | + + + + + | Vertigo | 02/18/2012 | + + + | Asthma | 10/30/2011 | + + + | ABDOMINAL PAIN, RIGHT UPPER QUADRANT | 05/08/2011 | + + + | HERPES ZOSTER | 05/03/2011 | + + + | EXTRINSIC ASTHMA, UNSPECIFIED | 11/21/2010 | + + + + + | Overview: ICD-10 Record update | + + + + + | OSTEOARTHRITIS, CARPOMETACARPAL JOINT, RIGHT THUMB | 11/21/2010 | + + + | SPONDYLOSIS, CERVICAL | 08/30/2010 | + + + | Lacunar infarction | 06/04/2010 | + + + | PERIPHERAL NEUROPATHY | 06/04/2010 | + + + | Valvular heart disease | 05/23/2010 | + + + | TIA | 05/08/2010 | + + + | FATIGUE | 04/17/2010 | + + + | GERD | 04/17/2010 | + + + | Hypothyroidism | | + + + | VAGINITIS, ATROPHIC | | + + + | Hyperlipidemia, mixed | | + + + + + | Overview: Overview: | | Last Assessment & Plan: | | Continue statin | | Last Assessment & Plan: Continue statin | + + + +---+ | DIZZINESS | | + +---+ | OSTEOPOROSIS | | + +---+ | Osteoarthritis | | + +---+ | Hepatitis A in 1968 | | + +---+ | Murmur | | + +---+ + + | Overview: Stress Test 05/16/16, is maximal asymptomatic | | stress test, however very poor function status, achieving maximal | | heart rate with 1 minute and 23 seconds, there was a | | questionable ST depression 1 mm in the lateral leads, however, | | there was some degree of artifact, moderate risk on Kirk score of | | 1, recommend stress imaging modality.Echocardiogram 10/25/14 | | shows, normal left ventricular size, wall thickness and motion, | | preserved left ventricular systolic function, LVEF is 65-70%, | | grade 1 left ventricular diastolic dysfunction, mildly thickened | | trileaflet aortic valve with adequate opening, there is a mild to | | moderate aortic valve insufficiency, mildly thickened and | | calcified mitral valve with a mild mitral valve regurgitation, | | moderate mitral annular calcification, mild tricuspid valve | | regurgitation, mild pulmonary hypertension with a peak systolic | | pressure of 35-40 mmHg, when compared to echocardiography on | | 11/03/13, there is no significant changes. | + + + +---+ | Aortic valve insufficiency | | + +---+ + + | Overview: Stress test 10/16/2017 shows Regadenoson EKG is | | negative, normal Regadenoson Sestamibi myocardial perfusion study | | with a normal left ventricular size and wall thickness, evidence | | of inferior wall soft tissue attenuation, preserved left | | ventricular systolic function, LVEF by gated SPECT 76 % by | | Irina Simms MD.Stress Test 07/16/16, shows persantine EKG | | is negative, normal persantine sestamibi myocardial perfusion | | study with a normal left ventricular size and wall thickness, | | preserved left ventricular systolic function, LVEF by gated SPECT | | 75%.Echocardiogram 07/16/16, shows mild left atrial dilatation, | | normal left ventricular size, wall thickness and motion, | | preserved left ventricular systolic function, LVEF is 65-70%, | | grade 1 left ventricular diastolic dysfunction, mildly thickened | | trileaflet aortic valve with adequate opening, there is a mild | | aortic valve insufficiency, mildly thickened and calcified mitral | | valve with a mild mitral valve regurgitant, a 0.7 x 1.2 x 1.8 cm | | hyperechoic, calcified nodule attached on posterior mitral valve | | leaflet, normal right-sided pressure, normal IVC with normal | | respiratory collapse, when compared to echocardiography on | | 10/25/14, posterior mitral valve leaflet calcified nodule is a new | | finding. | + + + +---+ | Psychophysiologic insomnia | | + +---+ Resolved Problems + + + + | Problem | Noted | Resolved | | | Date | Date | + + + + | Thoracic sprain and strain | 10/23/19 | | | | 14 | 8 | + + + + Encounters +--------+ + + + + | Date | Type | Specialty | Care Team | Description | +--------+ + + + + | 03/22/ | Telephone | Family Medicine | Kellie Gunderson PA | New Patient | | 2019 | | | | | +--------+ + + + + | 03/01/ | Office | Orthopedic Surgery | Ulysses Jensen, | Arthritis of | | 2018 | Visit | | MD | carpometacarpal | | | | | | (CMC) joint of right | | | | | | thumb (Primary Dx); | | | | | | Rotator cuff tear | | | | | | arthropathy of right | | | | | | shoulder | +--------+ + + + + from Last 3 Months Immunizations + + + + | Name | Administration Dates | Next Due | + + + + | INFLUENZA PF | 02/14/2014, 04/25/2012 | | | TRIVALENT(PED/ADOL/A | | | | DULT), PSKT | | | + + + + | INFLUENZA QUADR | 03/08/2015 | | | W/PRES | | | | (PED/ADOL/ADULT) | | | | MULTIDOSE | | | + + + + Family History + + + + + | Medical History | Relation | Name | Comments | + + + + + | Cancer | Brother | | | + + + + + | Arthritis | Father | | | + + + + + | Cancer | Father | | | + + + + + | Prostate cancer | Father | | | + + + + + | Stroke | Father | | from femal hormones for his cancer | + + + + + | Stroke | Maternal | | | | | Grandmoth | | | | | er | | | + + + + + | Heart disease | Maternal | | | | | Uncle | | | + + + + + | Breast cancer | Mother | | | + + + + + | Cancer | Mother | | | + + + + + | Depression | Mother | | | + + + + + | Gout | Mother | | | + + + + + | High blood pressure | Mother | | | + + + + + | Stroke | Paternal | | in her 50s | | | Grandmoth | | | | | er | | | + + + + + | Brain cancer | Sister | Tila | | + + + + + | Colon cancer | Sister | Tila | ileostomy | + + + + + | High blood pressure | Sister | Tila | | + + + + + | Cancer | Sister | 1/2 | | | | | Maryelle | | | | | n | | + + + + + | High blood pressure | Sister | 1/2 | | | | | Maryelle | | | | | n | | + + + + + | Migraines | Sister | 1/2 | | | | | Maryelle | | | | | n | | + + + + + | Sleep apnea | Sister | 1/2 | | | | | Maryelle | | | | | n | | + + + + + | Thyroid disease | Sister | 1/2 | in 2 half-sisters | | | | Maryelle | | | | | n | | + + + + + | Cancer | Son | | Non-Hodgkins lymphoma | + + + + + | Cancer | Son | Jose Juan | | + + + + + + + + + + | Relation | Name | Status | Comments | + + + + + | Brother | | | | + + + + + | Daughter | | | | | | | (Age 1 | | | | | day) | | + + + + + | Father | | | prostate cancer | | | | (Age | | | | | 70) | | + + + + + | Maternal Grandmother | | | | + + + + + | Maternal Uncle | | | | + + + + + | Mother | | | cancer | | | | (Age | | | | | 83) | | + + + + + | Paternal Grandmother | | | | + + + + + | Sister | Tila | | Bleed out. Crohns Disease | | | | (Age | | | | | 73) | | + + + + + | Sister | 1/2 | Alive | | | | Suzi | | | + + + + + | Sister | 1/2 | | Stroke | | | Pilar | (Age | | | | | 82) | | + + + + + | Son | | | Lymphoma | | | | (Age | | | | | 20) | | + + + + + | Son | | Alive | | + + + + + | Jeramy | Jose Juan | Alive | | + + + + + | Son | | Alive | | + + + + + Social History + [...] | + + Last Filed Vital Signs + + + + + | Vital Sign | Reading | Time Taken | Comments | + + + + + | Blood Pressure | 120/60 | 11/18/2018 10:04 AM | | | | | PDT | | + + + + + | Pulse | 56 | 11/18/2018 10:04 AM | | | | | PDT | | + + + + + | Temperature | 36.4 C (97.5 F) | 04/28/2017 1:18 PM | | | | | PST | | + + + + + | Respiratory Rate | 16 | 11/18/2018 10:04 AM | | | | | PDT | | + + + + + | Oxygen Saturation | 97% | 07/22/2017 8:47 AM | | | | | PDT [...] | | + + + + + Plan of Treatment +--------+---------+ + + + | Date | Type | Specialty | Care Team | Description | +--------+---------+ + + + | 06/02/ | Office | Orthopedic Surgery | Ulysses Jensen, | | | 2019 | Visit | | [address] | | | | | | [place] | | | | | | [address] | | | | | | | | +--------+---------+ + + + | 11/21/ | Office | Cardiology | Yesi, | | | 2019 | Visit | | JOSE [address]ERTO [address] | | | | | | [place] [address] | | | | | | [place] [address] | | | | | | [phone] | | | | | | | | +--------+---------+ + + + + + + + + | Health Maintenance | Due Date | Last Done | Comments | + + + + + | Vaccine: | | | | | Dtap/Tdap/Td (1 - | 9 | | | | Tdap) | | | | + + + + + | Vaccine: Zoster (1 | | | | | of 2) | 8 | | | + + + + + | Vaccine: | | | | | Pneumococcal 65+ (1 | 3 | | | | of 2 - PCV13) | | | | + + + + + | Adult Annual | | | | | Wellness Visit | 5 | | | + + + + + | Breast Cancer | | 11/08/2013, 05/18/2009 | | | Screening | 6 | | | + + + + + | Vaccine: Influenza | | 03/08/2015, 02/14/2014, | | | (#1) | 9 | 02/14/2014, Additional history | | | | | exists | | + + + + + | Colorectal Cancer | | 03/28/2010 | | | Screening | 0 | | | | (Colonoscopy) | | | | + + + [...] + +--------+ | MEDICARE | MEDICA | [id number] | | [phone] | | Medica | | | RE | | 003-Pr | 5 | | re | | | PART A | | esent | | | | | | AND B | | | | | | + +--------+ +--------+ + +--------+ | MODA | MODA | [id number] | 07/11/19 | [phone] | [address] | Indemn | | | HEALTH | | 08-Pre | 9 | [phone] | ity | | | MDCR | | sent | | [place], | | | | [place] | | | | [place] [address] | | + +--------+ +--------+ + +--------+ + +--------+ +--------+ + + | Guarantor Name | Accoun | Relation to | Date | Phone | Billing Address | | | t Type | Patient | of | | | | | | | | | | + +--------+ +--------+ + + | Soumya Jackson | Person | Self [birth year] | [address] | | | al/Fam | | 1936 | [phone] | [place], [place] | | | [place]aba | | | 9 (Home) | [address] | + +--------+ +--------+ + + Advance Directives + + + + + | Type | Date Recorded | Patient | Explanation | | | | Metal Hanger | | + + + + + | Power of | | | | | Outdoor Pursuits Instructor | | | | + + + + + | Advance | 10/30/2016 8:32 | | DIRECTIVE | | Directive | AM | | | + + + + + + + + + + | Code Status | Date | Date | Comments | | | Activated | Inactivated | | + + + + + | Full Code | 11/01/2016 | 11/06/2016 | | | | 2:14 PM | 5:05 PM | | + + + + + + + + +---+ | | | | | + + + +---+ | Full Code | 11/14/2013 | 11/17/2013 | | | | 2:36 PM | 3:13 PM | | + + + +---+ + + + +---+ | | | | | + + + +---+ | Full Code | 11/03/2013 | 11/05/2013 | | | | 12:54 PM | 8:12 PM | | + + + +---+
--- OUTSIDE RECORDS SUMMARY | ~2019-05-18 | XMS | Encounter Summary ---
Demographics + + + | Address | [address] | | | [place] [address] | + + + | Home Phone [...] Author | [facility] | | | and [place] | + + + | Organization | [facility] | | | and [...] | | | | | [place] [address] | | + + + + + | Hunter Jackson | ECON | [place] | | + + + + + | Wes Jackson | ECON | [place], [place] | | + + + + + | Oziel Jackson | ECON | [place], [place] | | + + + + + Care Team Providers + +------+ + | Care Sample Washer Name | Role | Phone | + [...] | 11/21/ | Refill | [facility] | Rodolfo Cruz, | Medication Refill | | 2015 | | MEDICINE [address] | [place] [address] | | | | | [place] | [place] | | | | | [place] [address] | [id number] | | | | | [phone] | | | +--------+--------+ + + + [...] | | | | | | [place] [address] | | | | | | [phone] | | | | | | | | +--------+---------+ + + + documented as of this encounter Visit Diagnoses + + | Diagnosis | + + | Insomnia - Primary Insomnia, unspecified | + + documented in this encounter"
--- OUTSIDE RECORDS SUMMARY | ~2019-05-18 | XMS | Encounter Summary ---
Demographics + + + | Address | [address] | | | [place] [address] | + + + | Home Phone | | + + + | Preferred Language | Unknown | + + + | Marital Status | | + + + | Confucianist Affiliation | Unknown | + + + | Race | Unknown | + + + | Ethnic Group | Unknown | + + + Author + + + | Author | [facility] | | | and [place] | + + + | Organization | [facility] | | | and [place] | + + + | Address | Unknown | + + + | Phone | Unavailable | + + + Support + + + + + | Name | Relationship | Address | Phone | + + + + + | Osmin Jackson | ECON | [address] | | | | | [place] [address] | | + + + + + | Hunter Jackson | ECON | [place] | | + + + + + | Wes Jackson | ECON | [place], [place] | | + + + + + | Oziel Jackson | ECON | [place] | | + + + + + Care Team Providers + +------+ + | Care Rn Dialysis Name | Role | Phone | + [...] + | 08/05/ | Telephone | [facility] | Braulio León | Garry (PT CALLED TO | | 2018 | | [facility] SLEEP | MD Allison [address] | CANCEL SLEEP | | | | [place] [address] | [address] [place] | STUDY/NO LONGER | | | | [place], [place] | [place] [address] | WANTS IT) | | | | [address] | [phone] | | | | | [phone] | | | +--------+ + + + [...] [place] | | | | | | [address] | | | | | | | | +--------+---------+ + + + | 11/21/ | Office | Cardiology | Yesi, | | | 2020 | Visit | | JOSE ALBERTO [address] | | | | | | [place], | | | | | | [place] [address] | | | | | | [phone] | | | | | | | | +--------+---------+ + + + documented as of this encounter Visit Diagnoses Not on filedocumented in this encounter"
--- OUTSIDE RECORDS SUMMARY | ~2019-05-18 | XMS | Encounter Summary ---
Demographics + + + | Address | [address] | | | [place] [address] | + + + | Home Phone | | + + + | Preferred Language | Unknown | + + + | Marital Status | | + + + | Mu-Ism Affiliation | Unknown | + + + | Race | Unknown | + + + | Ethnic Group | Unknown | + + + Author + + + | Author | [facility] | | | and [place] | + + + | Organization | [facility] | | | and [place] | + + + | Address | Unknown | + + + | Phone | Unavailable | + + + Support + + + + + | Name | Relationship | Address | Phone | + + + + + | Osmin Jackson | ECON | [address] | | | | | [place] [address] | | + + + + + | Hunter Jackson | ECON | [place] | | + + + + + | Wes Jackson | ECON | [place], [place] | | + + + + + | Oziel Jackson | ECON | [place], [place] | | + + + + + Care Team Providers + +------+ + | Care Roll Or Tape Edge Machine Operator Name | Role | Phone | + +------+ + PCP | Unavailable | + +------+ + Reason for Visit + + + | Reason | Comments | + + + | Cold Symptoms | Proc Rm; with cough, runny nose; x 4 days; has been taking | | | zyrtec, not helping | + + + Encounter Details +--------+---------+ + + + | Date | Type | Department | Care Team | Description | +--------+---------+ + + + | 10/20/ | Office | [facility] | [place] | Bronchitis (Primary | | 2016 | Visit | CARE [address] | Colby Cooper MD | Dx) | | | | [place] [address] | [address] | | | | | [address] | [place] | | | | | [phone] | [address] | | | | | | | [...] + + + | Blood Pressure | 160/58 | 02/29/2016 11:06 AM | | | | | PDT | | + + + + + | Pulse | 56 | 02/29/2016 11:06 AM | | | | | PDT | | + + + + + | Temperature | 36.4 C (97.5 F) | 02/29/2016 11:06 AM | | | | | PDT | | + + + + + | Respiratory Rate | 20 | 02/29/2016 11:06 AM | | | | | PDT | | + + + + + | Oxygen Saturation | 98% | 02/29/2016 11:06 AM | | | | | PDT | | + + + + + | Inhaled Oxygen | - | - | | | Concentration | | | | + + + + + | Weight | 82.1 kg (181 lb) | 02/29/2016 11:06 AM | | | | | PDT | | + + + + + | Height | 162.6 cm (5' 4") | 02/29/2016 11:06 AM | | | | | PDT | | + + + + + | Body Mass Index | 31.07 | 02/29/2016 11:06 AM | | | | | PDT | | + + + + + documented in this encounter Patient Instructions Patient Instructions Suma Fernandes Jr., MD - 02/29/2016 11:46 AM PDT Follow-up with your doctor or the clinic if not improving in 5 days. Take medication as directed Increase fluid intake Recheck sooner, in the clinic, with your doctor or in the ER, if your symptoms worsen or ne w problems develop 11: 46 AM PDT documented in this encounter Progress Notes Suma Fernandes Jr., MD - 02/29/2016 12:20 PM Ed Alisa Jackson Chief Complaint: Cough productive of yellow phlegm HPI: Patient has a history of allergies and bronchitis. She's been sick for 4 days with n shae congestion and a cough productive of some yellow phlegm along with some sinus pressure. She's had post nasal drainage. She has been taking allergy medication without benefit. S he's had no GI symptoms. She states she has done well on cephalexin in the past. Past medical history, past surgical history, medication reviewed. Physical Exam: No acute distress, alert and oriented, non-toxic in appearance BP 160/58 mmHg | Pulse 56 | Temp(Src) 36.4 C (97.5 F) (Temporal) | Resp 20 | Ht 1.626 m (5' 4") | Wt 82.101 kg (181 lb) | BMI 31.05 kg/m2 | SpO2 98% | ? No Nose: congested Ears: TM's not inflamed Throat: erythema, no exudate Neck: Supple, no stridor, no adenopathy Chest: No rales, no rhonchi, no wheezes, good breath sounds bilaterally, no respiratory di stress Heart: Regular rhythm, no murmur, no gallop, no rub Diagnosis: Pharyngitis, bronchitis Plan: Cephalexin Follow-up with your doctor or the clinic if not improving in 5 days. Take medication as directed Increase fluid intake Recheck sooner, in the clinic, with your doctor or in the ER, if your symptoms worsen or ne w problems develop This note dictated with Jarrod and was not proofread. document ed in this encounter Plan of Treatment +--------+---------+ + + + | Date | Type | Specialty | Care Team | Description | +--------+---------+ + + + | 06/02/ | Office | Orthopedic Surgery | Ulysses Jensen, | | | 2019 | Visit | | MD Danny FLANNERY | | | | | | [place], [place] | | | | | | [address] | | | | | | | | +--------+---------+ + + + | 11/21/ | Office | Cardiology | Yesi, | | | 2019 | Visit | | JOSE ALBERTO [address] | | | | | | [place], | | | | | | [place] [address] | | | | | | [phone] | | | | | | | | +--------+---------+ + + + documented as of this encounter Visit Diagnoses + + | Diagnosis | + + | Bronchitis - Primary Bronchitis, not specified as acute or chronic | + + documented in this encounter
--- OUTSIDE RECORDS SUMMARY | ~2019-05-18 | XMS | Encounter Summary ---
Demographics + + + | Address | [address] | | | [place] [address] | + + + | Home Phone | | + + + | Preferred Language | Unknown | + + + | Marital Status | | + + + | Buddhist Affiliation | Unknown | + + + | Race | Unknown | + + + | Ethnic Group | Unknown | + + + Author + + + | Author | [facility] | | | and [place] | + + + | Organization | [facility] | | | and [...] | | | | | [place] [address] | | + + + + + | Hunter Jackson | ECON | [place] | | + + + + + | Wes Jackson | ECON | [place], [place] | | + + + + + | Oziel Jackson | ECON | [place], [place] | | + + + + + Care Team Providers + +------+ + | Care Human Resources Trainee Name | Role | Phone | + +------+ + PCP | Unavailable | + +------+ + Encounter Details +--------+ + + + + | Date | Type | Department | Care Team | Description | +--------+ + + + + | 06/07/ | Hospital | [facility] | | | | 2010 | Encounter | MED CTR XRAY [address] | | | | | | [place] | | | | | | [place] [address] | | | | | | [phone] | | | +--------+ + + + [...] [place] | | | | | | [address] | | | | | | | | +--------+---------+ + + + | 11/21/ | Office | Cardiology | Yesi, | | | 2019 | Visit | | JOSE ALBERTO [address] | | | | | | [place], | | | | | | [place] [address] | | | | | | [phone] | | | | | | | | +--------+---------+ + + + documented as of this encounter Visit Diagnoses Not on filedocumented in this encounter"
--- OUTSIDE RECORDS SUMMARY | ~2019-05-18 | XMS | Encounter Summary ---
Demographics + + + | Address | [address] | | | [place] [address] | + + + | Home Phone | | + + + | Preferred Language | Unknown | + + + | Marital Status | | + + + | Confucianist Affiliation | Unknown | + + + | Race | Unknown | + + + | Ethnic Group | Unknown | + + + Author + + + | Author | [facility] | | | and [place] | + + + | Organization | [facility] | | | and [place] | + + + | Address | Unknown | + + + | Phone | Unavailable | + + + Support + + + + + | Name | Relationship | Address | Phone | + + + + + | Osmin Jackson | ECON | [address] | | | | | [place] [address] | | + + + + + | Hunter Jackson | ECON | [place] | | + + + + + | Wes Jackson | ECON | [place], [place] | | + + + + + | Oziel Jackson | ECON | [place], [place] | | + + + + + Care Team Providers + +------+ + | Care Credit Risk Modeler Name | Role | Phone | + [...] | | | atherosclero | | [address] | | | | | sis of | | [place], | | | | | unspecified | | [place] [address] | | | | | type of | | Phone: | | | | | vessel, | | [phone] | | | | | [place] | | Fax: | | | | | graft | | [phone] | | | | | Coronary | | | | | | | atherosclero | | | | | | | sis of | | | | | | | unspecified | | | | | | | type of | | | | | | | vessel, | | | | | | | [place] | | | | | | | graft | | | | | | | Procedures | | | | | | | HI ENDOSCOPY | | | | | | | | | | | | | | W/VIDEO-ASST | | | | | | | VEIN | | | | | | | HARVEST,CABG | | | | | | | HI CABG, | | | | | | | ARTERY-VEIN, | | | | | | | FOUR HI | | | | | | | [...] OP [address] | [place] [address] | | | | | [place] | [phone] | | | | | [address] | | | | | | [phone] | | | +--------+ + + + [...] | ORA Probe | A 18 Fr [place] sump was placed orally without difficulty under VL | | | 7 | Placement | monitoring. The stomach was decompressed, returning less than 10 | | | 5 | | ml clear bile-tinged fluid, followed by immediate removal. ORA | | | 4 | | probe was placed without difficulty using typical minimal force. | | | | | Drasco videoscope used to guide OG and ORA [...] | AI, no , trace TR, trace HI. 5. Normal aorta other than mild | [...] 11/05/16 1600 by | | eral | jkdb-icu-yxzqdx catheter system; | Angelica Smith, | Raquel [...] accurate I/O; All elements; All | | HOME AID Student | | er | elements; All [...] | | Ventilation: EZ; Successful | | RAG BALER | | | Technique: video scope; Airway [...] Shauna Mckinney, | | | removed by [facility]); 1039 | | RN | +--------+ + + + | Chest | 11/01/16; 0950; eze; | 11/01/16 0950 by | 11/02/16 1020 by | | Tube Y | Left:; anterior; pleural; 19 Fr.; | Chloé Choi RN | Semaj Bynum, | | 123 | midline; anterior; pericardial; | | HOME AID Student | | | 19 Fr.; midline; [...] with the | | | | | ejhvmncujz-yozj-zovbyfv to the | | | | | [...] sedated; Left; radial artery; 20 | | HOME AID Student | | | gauge; continuous blood [...] Semaj Bynum, | | | | | HOME AID Student | +--------+ + + + documented [...] [place] | | | | | | [place] [address] | | | | | | [phone] | | | | | | | [...] | | track was dilated with the vkmoddqcbw-ztoq-fokvqjy to the device hub | | | [...] track was dilated with the | | fobfdsoorj-ddjf-tmuuokb to the device hub and after a [...]
--- OUTSIDE RECORDS SUMMARY | ~2019-05-18 | XMS | Encounter Summary ---
Demographics + + + | Address | [address] | | | [place] [address] | + + + | Home Phone | | + + + | Preferred Language | Unknown | + + + | Marital Status | | + + + | Sikhism Affiliation | Unknown | + + + | Race | Unknown | + + + | Ethnic Group | Unknown | + + + Author + + + | Author | [facility] | | | and [place] | + + + | Organization | [facility] | [...] [place] | | | | | [place] [address] | | + + + + + | Hunter Jackson | ECON | [place] | | + + + + + | Wes Jackson | ECON | [place], [place] | | + + + + + | Oziel Jackson | ECON | [place], [place] | | + + + + + Care Team Providers + +------+ + | Care Residential Electrician Name | Role | Phone | + [...] Description | +--------+--------+ + + + | 07/17/ | Refill | [facility] | Rodolfo Cruz, | Medication Refill | | 2017 | | [facility] | [address] | | | | | [address] | [place] | | | | | [place] | [address] | | | | | [address] | | | | | | [phone] | | | +--------+--------+ + + + [...] STREET[place] | | | | | | [id number] | | | | | | | | +--------+---------+ + + + | 11/21/ | Office | Cardiology | Yesi, | | | 2019 | Visit | | JOSE ALBERTO [address] | | | | | | [place] | | | | | | [place] [address] | | | | | | [phone] | | | | | | | | +--------+---------+ + + + documented as of this encounter Visit Diagnoses Not on filedocumented in this encounter"
--- OUTSIDE RECORDS SUMMARY | ~2019-05-18 | XMS | Encounter Summary ---
Demographics + + + | Address | [address] | | | [place] [address] | + + + | Home Phone [...] [facility] | | | and [place] | + + + | Organization | [facility] [...] [place] | | | | | [place] [address] | | + + + + + | Hunter Jackson | ECON | [place] | | + + + + + | Wes Jackson | ECON | [place], [place] | | + + + + + | Oziel Jackson | ECON | [place], [place] | | + + + + + Care Team Providers + +------+ + | Care Twister Doffer Name | Role | Phone | + +------+ + | Gunderson, Kellie PA | PCP | | + +------+ + Encounter Details +--------+---------+ + + + | Date | Type | Department | Care Team | Description | +--------+---------+ + + + | 10/16/ | Surgery | [facility] | Irina Simms, | CV LHC | | 2017 | | MED CTR CV INTRA OP | MD [address] | | | | | [address] | [place], | | | | | [place] | [place] [address] | | | | | [address] | [phone] | | | | | [phone] | | | +--------+---------+ + + + [...] + + + | Blood Pressure | 131/60 | 10/16/2016 12:30 PM | | | | | PDT | | + + + + + | Pulse | 65 | 10/16/2016 12:30 PM | | | | | PDT | | + + + + + | Temperature | 36.8 C (98.2 F) | 10/16/2016 9:17 AM | | | | | PDT | | + + + + + | Respiratory Rate | 16 | 10/16/2016 12:30 PM | | | | | PDT | | + + + + + | Oxygen Saturation | 96% | 10/16/2016 12:30 PM | | | | | PDT | | + + + + + | Inhaled Oxygen | - | - | | | Concentration | | | | + + + + + | Weight | 78 kg (172 lb) | 10/16/2016 9:17 AM | | | | | PDT | | + + + + + | Height | 162.6 cm (5' 4") | 10/16/2016 9:17 AM | | | | | PDT | | + + + + + | Body Mass Index | 29.52 | 10/16/2016 9:17 AM | | | | | PDT | | + + + + + documented in this encounter Discharge Instructions Instructions Katalina Calhoun RN - 10/16/2016Formatting of this note might be different f rom the original. Procedural Sedation (Adult) You have been given medicine by vein to make you sleep during your surgery. This may have i ncluded both a pain medicine and sleeping medicine. Most of the effects have worn off. But y ou may still have some drowsiness for the next 6 to 8 hours. Home care Follow these guidelines when you get home: For the next 8 hours, you should be watched by a responsible adult. This person should m radha sure your condition is not getting worse. Don't take any medicine by mouth for pain or for sleep during the next 4 hours. These mi ght react with the medicines you were given in the hospital. This could cause a much stronge r response than usual. Don't drink any alcoholfor the next [address], operate dangerous machinery, or make important business or personal decisio nsduring the next 24 hours. Follow-up care Follow up with your healthcare provider if you are not alert and back to your usual level o f activity within 12 hours. When to seek medical advice Call your healthcare provider right away if any of these occur: Drowsiness gets worse Weakness or dizziness gets worse Repeated vomiting You cannot be awakened Date Last Reviewed: 02/27/201619996657-7795 [employer]. [address] [place] [address], [place] [id number]. All righ ts reserved. This information is not intended as a substitute for professional medical care. Always follow your healthcare professional's instructions. Cardiac Catheterization You may have had angina, dizziness, or other symptoms of heart trouble. To help diagnose yo ur problem, your doctor may suggest having a cardiac catheterization. This common procedure is sometimes also used to treat a heart problem. The catheter may be placed in the arm or the groin. Before the procedure Tell your doctor what medicines you take and about any allergies you have. Don t eat or drink anything after midnight, the night before the procedure. You may be admitted to the hospital on the day of the procedure. Know that any hair on the skin where the catheter will be inserted may be removed. You m ay be given medication to relax before the procedure. During the procedure You will receive a local anesthetic to prevent pain at the insertion site. The doctor inserts an introducing sheath into a blood vessel in your groin or arm. Through the sheath, a long, thin tube called a catheter is placed inside the artery and guided toward your heart. To perform different tests or check other parts of the heart, the doctor inserts a new c atheter or moves the catheter or X-ray machine. For some tests, a contrast dye is injected through the catheter. After the procedure Your doctor or nurse will tell you how long to lie down and keep the insertion site stil l. If the insertion site was in your groin, you may need to lie down with your leg still fo r several hours. A nurse will check your blood pressure and the insertion site. You may be asked to drink fluid to help flush the contrast liquid out of your system. Have someone drive you home from the hospital. It s normal to find a small bruise or lump at the insertion site. These common side ef fects should disappear within a few weeks. When to call your healthcare provider Call your healthcare provider right away if you have any of the following: Angina (chest pain). Pain, swelling, redness, bleeding, or drainage at the insertion site. Severe pain, coldness, or a bluish color in the leg or arm that held the catheter. Blood in your urine, black or tarry stools, or any other kind of bleeding. Fever of 100.4F (38C) or higher, or as directed by your healthcare provider Date Last Reviewed: 07/07/201319997643-0968 [employer]. [address] [place] [id number]. All righ ts reserved. This information is not intended as a substitute for professional medical care. Always follow your healthcare professional's instructions. documented in this encounter Medications at Time [...] | | | | | | [place] [address] | | | | | | [phone] | | | | | | | | +--------+---------+ + + + documented as of this encounter Procedures + +--------+ + + + | Procedure Name | Priori | Date/Time | Associated Diagnosis | Comments | | | ty | | | | + +--------+ + + + | CV LHC | Routin | 10/16/2016 | | Results for this | | | e | 11:01 AM | | procedure are in the | | | | PDT | | results section. | + +--------+ + + + documented in this encounter Results CV CARDIAC PROCEDURE (10/16/2016 11:01 AM PDT) + + | Specimen | + + | | + + + + + | Narrative | Performed At | + + + | [facility] | | | MD Mendez 10/16/2016 11:28 CARDIAC CATHETERIZATION and | | | CORONARY ANGIOGRAPHY PATIENT NAME/: Soumya Jackson, | | | (1935) OF PROCEDURE: | | | 10/16/2016 BOARD MEMBER: Irina Simms MD PROCEDURES | | | PERFORMED:Coronary AngiographyLeft Heart CatheterizationLeft | | | Ventriculography Indications: Coronary artery disease DESCRIPTION OF | | | PROCEDURE: Informed consent was obtained from the patient, and a | | | time-out was performed to verify the patient's identification and | | | planned procedure. The patient's right wrist was then prepped and | | | draped in the usual sterile fashion, and anesthetized with 1 mL of | | | buffered 1% lidocaine. For arterial access modified Seldinger | | | technique was used to place a 6 Fr. sheath in the right radial artery | | | (a normal Roberto Carlos's test was performed prior to the procedure). Right | | | heart catheterization was not performed on this patient. After | | | crossing the aortic valve, left ventriculography was performed in the | | | HUGO projection. Selective coronary angiogram was then performed in | | | several sagittal and oblique projections. Multipurpose diagnostic | | | catheters were used for this procedure. The patient received a total | | | of 1.5 mg of Versed and 75 mcg of fentanyl intravenously for | | | conscious sedation during the procedure. A total of 35 mL Omnipaque | | | 350 contrast was utilized. During procedure a total of 400 mcg | | | nitroglycerin, and 0 mcg nicardipine were given via the radial sheath, | | | and 4000 units heparin was given intravenously. The procedure had | | | no immediate complications. At the conclusion of the procedure, the | | | sheath was removed and hemostasis obtained with a TR hemostatic band. | | | FINDINGS: Hemodynamics: Ao - 120/64 mm Hg with a mean of 86 mm HgLV - | | | 124/11 mm HgLVEDP - 14 mm Hg Left ventriculography: The left | | | ventricular size and function were normal. LVEF is calculated at | | | 65%. There is no mitral valve regurgitation noted. Left main artery: | | | The left main artery is a large caliber vessel that bifurcates into | | | the left anterior descending artery and left circumflex artery. | | | Left main artery has is free of disease. Left anterior descending | | | artery: The left anterior descending artery is a large caliber | | | vessel that wraps around the apex and gives rise to 2 diagonal | | | branches. The vessel has High-grade 90% stenosis at the proximal | | | portion of the LAD. It gives rise to 1 diagonal branches. There is | | | also a 90% stenosis to the proximal portion of the diagonal artery. | | | Left circumflex artery: The left circumflex artery is a medium | | | caliber vessel that is non dominant. The vessel has There is a 90% | | | stenosis to the midportion of the left circumflex proper.. It gives | | | rise to 1 OM branches. Right coronary artery: The right coronary | | | artery is a large caliber vessel that is dominant. The vessel has | | | Sequential 90% stenosis to the proximal and midportion of the RCA. | | | It gives rise to a PDA and Posterolateral branches. CONCLUSIONS:1. | | | Severe three-vessel coronary artery disease; high-grade 90% stenosis | | | to the proximal portion of the LAD, proximal portion of the first | | | diagonal artery, midportion of the left circumflex Artery. There is | | | also high-grade 90% stenosis sequential lesions at the proximal and | | | midportion of the RCA.2. There is a right dominate circulation.3. | | | Normal LV systolic function with an EF of 65%4. Systemic blood | | | pressure is normal.5. There was successful hemostasis with a TR | | | hemostatic band. PLAN:1. Coronary revascularization with CABG. | | | | | | PRIMARY CARE PROVIDER:FLORA Morgan | | | | | |Ao - 120/64 mm Hg with a mean of 86 mm Hg | | |LV - 124/11 mm Hg | | |LVEDP - 14 mm Hg | | | | | |Left ventriculography: The left ventricular size and function | | |were normal. LVEF is calculated at 65%. There is no mitral | | |valve regurgitation noted. | | | | | |Left main artery: The left main artery is a large caliber vessel | | |that bifurcates into the left anterior descending artery and left | | |circumflex artery. Left main artery has is free of disease. | | | | | |Left anterior descending artery: The left anterior descending | | |artery is a large caliber vessel that wraps around the apex and | | |gives rise to 2 diagonal branches. The vessel has High-grade 90% | | |stenosis at the proximal portion of the LAD. It gives rise to 1 | | |diagonal branches. There is also a 90% stenosis to the proximal | | |portion of the diagonal artery. | | | | | |Left circumflex artery: The left circumflex artery is a medium | | |caliber vessel that is non dominant. The vessel has There is a | | |90% stenosis to the midportion of the left circumflex proper.. | | |It gives rise to 1 OM branches. | | | | | | | | |Right coronary artery: The right coronary artery is a large | | |caliber vessel that is dominant. The vessel has Sequential 90% | | |stenosis to the proximal and midportion of the RCA. It gives | | |rise to a PDA and Posterolateral branches. | | | | | | | | |CONCLUSIONS: | | |1. Severe three-vessel coronary artery disease; high-grade 90% | | |stenosis to the proximal portion of the LAD, proximal portion of | | |the first diagonal artery, midportion of the left circumflex | | |Artery. There is also high-grade 90% stenosis sequential lesions | | |at the proximal and midportion of the RCA. | | |2. There is a right dominate circulation. | | |3. Normal LV systolic function with an EF of 65% | | |4. Systemic blood pressure is normal. | | |5. There was successful hemostasis with a TR hemostatic band. | | | | | | | | |PLAN: | | |1. Coronary revascularization with CABG. | | | | | | | | | | | | | | | | | | | | | | | |PRIMARY CARE PROVIDER: | | |FLORA Morgan | | | | | + + + documented in this encounter Visit Diagnoses Not on filedocumented in this encounter Administered Medications + +--------+---------+------+------+------+ | Medication Order | MAR | Action | Dose | Rate | Site | | | Action | Date | | | | + +--------+---------+------+------+------+ + +---+ | acetaminophen (TYLENOL) tablet | | | 650 mg 650 mg, Oral, EVERY 6 | | | HOURS PRN, Pain, Fever, Starting | | | 10/16/16 at 1153, Post-op/Phase | | | II | | + +---+ | | | + +---+ + +-------+ +-------+---+---+ | diphenhydrAMINE (BENADRYL) | Given | 10/17/19 | 25 mg | | | | injection 25 mg 25 mg, | | 17 10:07 | | | | | Intravenous, ONCE, Fri10/16/16 at | | AM PDT | | | | | 1030, For 1 dose | | | | | | + +-------+ +-------+---+---+ +---+---+ | | | +---+---+ + +-------+ +--------+---+---+ | fentaNYL (PF) injection ONCE | Given | 10/17/19 | 25 mcg | | | | PRN, Starting Fri10/16/16 at 1035, | | 17 10:43 | | | | | Intra-op | | AM PDT | | | | + +-------+ +--------+---+---+ +-------+ +--------+---+---+ | Given | 10/17/19 | 25 mcg | | | | | 17 10:38 | | | | | | AM PDT | | | | +-------+ +--------+---+---+ | Given | 10/17/19 | 25 mcg | | | | | 17 10:35 | | | | | | AM PDT | | | | +-------+ +--------+---+---+ +---+---+ | | | +---+---+ + +-------+ +--------+---+---+ | heparin 1,000 units/mL | Given | 10/17/19 | 4,000 | | | | injection ONCE PRN, Starting Wed | | 17 10:43 | Units | | | | 10/16/16 at 1043, Intra-op | | AM PDT | | | | + +-------+ +--------+---+---+ +---+---+ | | | +---+---+ + +-------+ +--------+---+---+ | hydrocortisone (PF) | Given | 10/17/19 | 100 mg | | | | (solu-CORTEF) injection 100 mg | | 17 10:09 | | | | | 100 mg, Intravenous, ONCE, Wed | | AM PDT | | | | | 10/16/16 at 1030, For 1 dose, Mix | | | | | | | with 2 mL sterile water to make | | | | | | | 50 mg/mL., | | | | | | + +-------+ +--------+---+---+ +---+---+ | | | +---+---+ + +-------+ +--------+---+---+ | iohexol (OMNIPAQUE 350) 350 | Given | 10/17/19 | 35 mLs | | | | mg/mL injection ONCE PRN, | | 17 10:52 | | | | | Starting 10/16/16 at 1052, | | AM PDT | | | | | Intra-op | | | | | | + +-------+ +--------+---+---+ + +---+ | | | + +---+ | lidocaine 1%-EPINEPHrine | | | 1:100,000 injection 5 mL 5 mL, | | | Infiltration, ONCE PRN, for | | | oozing at cardiac cath site, | | | Starting 10/16/16 at 1153, For | | | 1 dose, For continued oozing | | | after sheath removal despite | | | pressure dressing and manual | | | pressure. Inject to affected area | | | x 1 followed by 10 minutes of | | | manual compression., | | | Post-op/Phase II | | + +---+ | | | + +---+ + +-------+ +------+---+---+ | lidocaine buffered 1% injection | Given | 10/17/19 | 1 mL | | | | ONCE PRN, Starting Fri10/16/16 | | 17 10:39 | | | | | at 1039, Intra-op | | AM PDT | | | | + +-------+ +------+---+---+ +---+---+ | | | +---+---+ + +-------+ +--------+---+---+ | midazolam (VERSED) 1 mg/mL | Given | 10/17/19 | 0.5 mg | | | | injection ONCE PRN, Starting Fri | | 17 10:43 | | | | | 10/16/16 at 1035, Intra-op | | AM PDT | | | | + +-------+ +--------+---+---+ +-------+ +------+---+---+ | Given | 10/17/19 | 1 mg | | | | | 17 10:35 | | | | | | AM PDT | | | | +-------+ +------+---+---+ + +---+ | | | + +---+ | nitroglycerin (NITROSTAT) SL | | | tablet 0.4 mg 0.4 mg, | | | Sublingual, EVERY 5 MIN PRN, | | | Chest pain, Starting 10/16/16 | | | at 1153, May give up to 3 doses. | | | Notify physician after 2nd dose | | | given. Hold for SBP<100, | | | Post-op/Phase II | | + +---+ | | | + +---+ + +-------+ +---+---+---+ | nitroglycerin in dextrose 400 | Given | 10/17/19 | | | | | mcg CVL mixture ONCE PRN, | | 17 10:41 | | | | | Starting Fri10/16/16 at 1041, | | AM PDT | | | | | Intra-op | | | | | | + +-------+ +---+---+---+ + +---+ | | | + +---+ | ondansetron (ZOFRAN) injection | | | 4-8 mg 4-8 mg, Intravenous, | | | EVERY 6 HOURS PRN, Nausea, | | | Vomiting, Starting Fri10/16/16 at | | | 1153, Post-op/Phase II | | + +---+ | | | + +---+ + +---------+ +--------+-------+---+ | sodium chloride 0.9% (NS) | New Bag | 10/17/19 | 1,000 | 125 | | | infusion at 125 mL/hr, | | 17 9:59 | mLs | mL/hr | | | Intravenous, CONTINUOUS, Starting | | AM PDT | | | | | 10/16/16 at 0945, For | | | | | | | procedure only, not to exceed 1 | | | | | | | liter., Pre-op | | | | | | + +---------+ +--------+-------+---+ +---+---+ | | | +---+---+ documented in this encounter
--- OUTSIDE RECORDS SUMMARY | ~2019-05-18 | XMS | Encounter Summary ---
Demographics + + + | Address | [address] | | | [place] [address] | + + + | Home Phone | | + + + | Preferred Language | Unknown | + + + | Marital Status | | + + + | Gnosticism Affiliation | Unknown | + + + | Race | Unknown | + + + | Ethnic Group | Unknown | + + + Author + + + | Author | [facility] | | | and [place] | + + + | Organization | [facility] | [...] [place] | | | | | [place] [address] | | + + + + + | Hunter Jackson | ECON | [place] | | + + + + + | Wes Jackson | ECON | [place], [place] | | + + + + + | Oziel Jackson | ECON | [place], [place] | | + + + + + Care Team Providers + +------+ + | Care Master Control Supervisor Name | Role | Phone | [...] [facility] | | | | | Cervical | [place], | [address] | | | | | radiculopath | Harsha Moreno MD | [place], | | | | | y | [address] | [place] | | | | | Procedures | [address] | [address] | | | | | [place] | [place] | Phone: | | | | | DX/THER SBST | [address] | [phone] | | | | | INTRLMNR | Phone: | Fax: | | | | | CRV/THRC | [phone] | [phone] | | | | | W/IMG GDN | Fax: | | | | | | [place] | [phone] | | | | | | TRIAMCINOLON | | | | | | | E ACET INJ | | | | | | | NOS, 10 MG | | | | | | | Appt: 04/28 | | | | | | | C7/T1 ILESI | | | +--------+--------+ + + + + Encounter Details +--------+ + + + + | Date | Type | Department | Care Team | Description | +--------+ + + + + | 04/28/ | Hospital | [facility] | Harsha Selby | Cervical | | 2017 | Encounter | MED CTR XRAY [address] | [address], [address] | radiculopathy; DDD | | | | [address] [place] | [address] [place], [place] | (degenerative disc | | | | [place] [address] | [id number] | disease), cervical | | | | [phone] | | | | | | | Steam CleanerRenetta | | +--------+ + + + + [...] +---------+ + + | Blood Pressure | 171/75 | 04/28/2017 5:53 PM | | | | | PST | | + +---------+ + + | Pulse | - | [...] | | | | | | [place] [address] | | | | | | [phone] | | | | | | | | +--------+---------+ + + + documented as of this encounter Procedures + +--------+ + + + | Procedure Name | Priori | Date/Time | Associated Diagnosis | Comments | | | ty | | | | + +--------+ + + + | FL EPIDURAL STEROID | Routin | 04/28/2017 | Cervical | Results for this | | INJ CERVICAL | e | 5:38 PM | radiculopathy DDD | procedure are in the | | THORACIC | | PST | (degenerative disc | results section. | | INTERLAMINAR | | | disease), cervical | | + +--------+ + + + documented in this encounter Results FL COREY Cervical Thoracic Interlaminar (04/28/2017 5:38 PM PST) + + | Specimen | + + | | + + + + + | Narrative | Performed At | + + + | | [facility] | | 04/28/2017CERVICAL INTERLAMINAR EPIDURAL STEROID INJECTION CLINICAL | | | HISTORY: ICD-10 CODE M54.12 CERVICAL RADICULOPATHY Soumya Jackson | | | presents to the fluoroscopy suite for a fluoroscopically-guided C7-T1 | | | interlaminar epidural steroid injection, right of midline, as part of | | | conservative management for chronic pain with cervical radiculopathy | | | and degenerative disk disease. After informed consent was obtained, | | | the patient lay in the prone position on the fluoroscopy table. The | | | area was identified under fluoroscopic guidance. The area was prepped | | | and draped in sterile fashion. A 25-gauge, 1.5-inch needle was | | | inserted into this region and approximately 3 mL of buffered 1% | | | lidocaine was infused. Then a 22-gauge epidural needle was advanced | | | into the epidural space at the C7-T1 level. Confirmation into the | | | epidural space was obtained with loss of resistance, as well as | | | infusion of approximately 1 mL of Isovue contrast which showed | | | epidural flow. Then, a combination of 3 mL of normal saline and 1 mL | | | of 10 mg/mL dexamathasone was infused. The patient tolerated the | | | procedure well without complications. Pre- and post-procedure blood | | | pressures were stable. The patient was given verbal as well as written | | | followup instructions. Prior to the start of the procedure, the | | | following were performed and verified, including correct patient | | | identity, correct site/side marked and visible, agreement on the | | | procedure to be done, correct patient positioning and an accurate | | | procedure consent form. Any safety precautions based on clinical | | | history and/or medication use have been addressed. I personally | | | performed the procedure above. Estimated blood loss: | | | MinimalComplications: NoneFindings: As expectedAnesthesia: Local | | | 1% Lidocaine | | |I personally performed the procedure above. | | | | | |Estimated blood loss: Minimal | | |Complications: None | | |Findings: As expected | | |Anesthesia: Local 1% Lidocaine | | | | | | | | + + + + +---------+ + + | Performing | Address | City/State/Zipcode | Phone Number | | Organization | | | | + +---------+ + + | [facility] | | | | + +---------+ + + documented in this encounter Visit Diagnoses + + | Diagnosis | + + | Cervical radiculopathy Brachial neuritis or radiculitis nos | + + | DDD (degenerative disc disease), cervical Degeneration of cervical intervertebral | | disc | + + documented in this encounter Administered Medications + +--------+ +-------+------+------+ | Medication Order | MAR | Action | Dose | Rate | Site | | | Action | Date | | | | + +--------+ +-------+------+------+ | dexamethasone (PF) 10 mg/mL | Given | 04/28/20 | 10 mg | | | | injection 10 mg 10 mg, Other, | | 17 5:50 | | | | | ONCE, Fri04/28/17 at 1800, For 1 | | PM PST | | | | | dose | | | | | | + +--------+ +-------+------+------+ +---+---+ | | | +---+---+ + +-------+ +-------+---+---+ | iohexol (OMNIPAQUE 300) 300 | Given | 04/28/20 | 4 mLs | | | | mg/mL injection 4 mL 4 mL, | | 17 5:50 | | | | | INTRATHECAL, ONCE, Fri04/28/17 | | PM PST | | | | | at 1800, For 1 dose | | | | | | + +-------+ +-------+---+---+ +---+---+ | | | +---+---+ + +-------+ +-------+---+ + | lidocaine buffered 1% injection | Given | 04/28/20 | 5 mLs | | Other | | 5 mL 5 mL, Intradermal, ONCE, | | 17 5:43 | | | (Comment | | 04/28/17 at 1800, For 1 dose | | PM PST | | | ) | + +-------+ +-------+---+ + +---+---+ | | | +---+---+ documented in this encounter"
--- OUTSIDE RECORDS SUMMARY | ~2019-05-18 | XMS | Encounter Summary ---
Demographics + + + | Address | [address] | | | [place] [address] | + + + | Home Phone | | + + + | Preferred Language | Unknown | + + + | Marital Status | | + + + | Anabaptism Affiliation | Unknown | + + + | Race | Unknown | + + + | Ethnic Group | Unknown | + + + Author + + + | Author | [facility] | | | and [place] | + + + | Organization | [facility] | [...] | | | | | [place] [address] | | + + + + + | Hunter Jackson | ECON | [place] | | + + + + + | Wes Jackson | ECON | [place], [place] | | + + + + + | Oziel Jackson | ECON | [place], [place] | | + + + + + Care Team Providers + +------+ + | Care Telegraphic Typewriter Operator Chief Name | Role | Phone | + [...] | +--------+ + + + + | 11/07/ | Telephone | [facility] | Irina Simms, | Blood Pressure Check | | 2015 | | CARDIOLOGY [address] | [address] [place] | (Screening) | | | | [place], | [place], | | | | | [place] [address] | [place] [address] | | | | | [phone] | [phone] | | | | | | | [...] | | | | | | [place] [address] | | | | | | [phone] | | | | | | | | +--------+---------+ + + + documented as of this encounter Visit Diagnoses Not on filedocumented in this encounter"
--- OUTSIDE RECORDS SUMMARY | ~2019-05-18 | XMS | Encounter Summary ---
Demographics + + + | Address | [address] | | | [place] [address] | + + + | Home Phone [...] | [facility] | | | and [place] | + + + | Organization | [facility] [...] | | | | | [place] [address] | | + + + + + | Hunter Jackson | ECON | [place] | | + + + + + | Wes Jackson | ECON | [place], [place] | | + + + + + | Oziel Jackson | ECON | [place], [place] | | + + + + + Care Team Providers + +------+ + | Care Review Rn Name | Role | Phone | + +------+ + | Rodolfo Cruz MD | PCP | | + +------+ + Reason for Visit + + + | Reason | Comments | + + + | Records Request | ER visit 10-31-2015 at [facility] | + + + Encounter Details +--------+ + + + + | Date | Type | Department | Care Team | Description | +--------+ + + + + | 10/31/ | Telephone | [facility] | Rodolfo Cruz, | Records Request (ER | | 2016 | | MEDICINE [address] | MD [address] | visit 10-31-2015 at | | | | [facility] | [place], [place] | [facility] | | | | [place] [address] | [address] | ) | | | | [phone] | | | +--------+ + + + [...] STREETER | | | | | | [address] | | | | | | | | +--------+---------+ + + + | 11/21/ | Office | Cardiology | Yesi, | | | 2020 | Visit | | JOSE ALBERTO Linder [address] | | | | | | [place], | | | | | | [place] [address] | | | | | | [phone] | | | | | | | | +--------+---------+ + + + documented as of this encounter Visit Diagnoses Not on filedocumented in this encounter"
--- OUTSIDE RECORDS SUMMARY | ~2019-05-18 | XMS | Encounter Summary ---
Demographics + + + | Address | [address] | | | [place] [address] | + + + | Home Phone | | + + + | Preferred Language | Unknown | + + + | Marital Status | | + + + | Caodaism Affiliation | Unknown | + + + | Race | Unknown | + + + | Ethnic Group | Unknown | + + + Author + + + | Author | [facility] | | | and [place] | + + + | Organization | [facility] | | | and [place] | + + + | Address | Unknown | + + + | Phone | Unavailable | + + + Support + + + + + | Name | Relationship | Address | Phone | + + + + + | Osmin Jackson | ECON | [address] | | | | | [place] [address] | | + + + + + | Hunter Jackson | ECON | [place] | | + + + + + | Wes Jackson | ECON | [place], [place] | | + + + + + | Oziel Jackson | ECON | [place], [place] | | + + + + + Care Team Providers + +------+ + | Care Hydraulic Hammer Operator Name | Role | Phone | + +------+ + | Kellie Gunderson | PCP | | + +------+ + Encounter Details +--------+ + + + + | Date | Type | Department | Care Team | Description | +--------+ + + + + | 09/25/ | Abstract | [facility] | Irina Simms, | | | 2016 | | CARDIOLOGY [address] | MD [address] [place] | | | | | [place], | [place], | | | | | [place] [address] | [place] [address] | | | | | [phone] | [phone] | | | | | | | [...] STREETER | | | | | | [address] | | | | | | | | +--------+---------+ + + + | 11/21/ | Office | Cardiology | Yesi, | | | 2019 | Visit | | JSOE ALBERTO Linder [address] | | | | | | [place], | | | | | | [place] [address] | | | | | | [phone] | | | | | | | [...]
--- OUTSIDE RECORDS SUMMARY | ~2019-05-18 | XMS | Encounter Summary ---
Demographics + + + | Address | [address] | | | [place] [address] | + + + | Home Phone [...] + | Author | [facility] | | | and [place] | + + + | Organization | [facility] | | | and [...] | | | | | [place] [address] | | + + + + + | Hunter Jackson | ECON | [place] | | + + + + + | Wes Jackson | ECON | [place], [place] | | + + + + + | Oziel Jackson | ECON | [place], [place] | | + + + + + Care Team Providers + +------+ + | Care Emergency Medicine Physician Assistant Name | Role | Phone | [...] Radiology | Diagnoses | Morasch, | [facility] | | | | | Thoracic | Rodolfo Reilly MD | [address] | | | | | sprain and | [address] | [place], | | | | | strain, | [address] [place] | [place] | | | | | initial | [place], [place] | [address] | | | | | encounter | [address] | Phone: | | | | | Procedures | Phone: | [phone] | | | | | MRI Thoracic | [phone] | Fax: | | | | | Spine wo | Fax: | [phone] | | | | | Contrast | [phone] | | +--------+--------+ + + + + Reason for Visit Diagnostic/Screening (Routine) +--------+--------+ + + + + | Status | Reason | Specialty | Diagnoses / | Referred By | Referred To | | | | | Procedures | Contact | Contact | +--------+--------+ + + + + | Closed | | Radiology | Diagnoses | Morasch, | [facility] | | | | | Thoracic | Rodolfo Reilly MD | [address] | | | | | sprain and | [address] | [place], | | | | | strain, | [address] [place] | [place] | | | | | initial | [place], [place] | [address] | | | | | encounter | [address] | Phone: | | | | | Procedures | Phone: | [phone] | | | | | MRI Thoracic | [phone] | Fax: | | | | | Spine wo | Fax: | [phone] | | | | | Contrast | [phone] | | +--------+--------+ + + + + Encounter Details +--------+ + + + + | Date | Type | Department | Care Team | Description | +--------+ + + + + | 10/26/ | Hospital | [facility] | Rodolfo Cruz, | Thoracic sprain and | | 2013 | Encounter | [facility] MRI [address] | [address] | strain, initial | | | | [place], | [place], [place] | encounter | | | | [place] [address] | [address] | | | | | [phone] | | | +--------+ + + + [...] | 90 | 1 | 07/08/19 | 01/03/201 | | (SYNTHROID) 125 mcg | mouth [...] [place] | | | | | | [address] | | | | | | | | +--------+---------+ + + + | 11/21/ | Office | Cardiology | Yesi, | | | 2019 | Visit | | JOSE ALBERTO Linder [address] | | | | | | [place], | | | | | | [place] [address] | | | | | | [phone] | | | | | | | | +--------+---------+ + + + documented as of this encounter Procedures + +--------+ + + + | Procedure Name | Priori | Date/Time | Associated Diagnosis | Comments | | | ty | | | | + +--------+ + + + | MRI THORACIC SPINE | Routin | 10/26/2013 | Thoracic sprain | Results for this | | WO CONTRAST | e | 10:06 AM | and strain, initial | procedure are in the | | | | PDT | encounter | results section. | + +--------+ + + + documented in this encounter Results MRI Thoracic Spine wo Contrast (10/26/2013 10:06 AM PDT) + + | Specimen | + + | | + + + + + | Narrative | Performed At | + + + | UNENHANCED MRI THORACIC SPINE 10/26/2013 10:06 AM CLINICAL | MISCELANIOUS | | HISTORY: severe right thoracic paraspinous pain COMPARISON: | LAB | | Chest radiographs October 22, 2013, thoracic radiographs September 15, 2013, | | | cervical radiographs October 23, 2010 and cervical MRI August 23, 2010 | | | TECHNIQUE:? The following 3T MR sequences of the thoracic spine were | | | obtained: 1. ?Sagittal T1 and STIR. 2.? Axial , coronal and sagittal | | | T2. FINDINGS: There is leftward thoracic curvature centered at | | | T4-5. There is a 2.3 cm ovoid region of STIR hyperintensity in the | | | right upper aspect of the sternal manubrium, visible only on sagittal | | | images provided through the region. Decreased T1-weighted signal | | | and mixed T2 signal is noted at this level. Additional focal T2/STIR | | | hyperintensity is noted at the base of the right T7 transverse | | | process. A 3.1 cm rounded region of heterogeneously decreased T2 | | | signal is noted in the left humeral head on the coronal images | | | provided through the region. There is a stable 9 mm rounded mixed | | | signal structure in the right inferior aspect of the T2 vertebral | | | body compared with cervical MRI of August 23, 2010, favoring an | | | atypical hemangioma. Additional tiny, more typical hemangiomata are | | | visible elsewhere in the thoracic spine. Thoracic vertebral height | | | is maintained, without evident fracture or spondylolisthesis. | | | Prominent reversal of the cervical lordosis centered at C4-5 persists | | | and is similar to previous MRI from 2011. Degenerative disc | | | disease, spondylosis and mild retrolisthesis are again visible at | | | several mid to lower thoracic levels and appear grossly stable, along | | | with fairly mild appearing central canal stenosis, allowing for | | | limitations of the large nfvfr-ke-kjnn sagittal images provided. | | | Cervical neural foramina are not well evaluated on the provided | | | images. Imaged contents of the posterior fossa and foramen magnum | | | are unremarkable. The spinal cord demonstrates normal signal | | | intensity and caliber. The conus medullaris terminates at L1-2. | | | Minimal posterior disc bulges are present at several thoracic | | | levels, without associated central canal or neuroforaminal stenosis. | | | Imaged paraspinal, intrathoracic and upper abdominal structures | | | are unremarkable. IMPRESSION - 1. ABNORMAL SIGNAL IN THE | | | STERNAL MANUBRIUM, RIGHT T7 TRANSVERSE PROCESS AND LEFT HUMERAL HEAD, | | | CONCERNING FOR MULTIPLE MYELOMA OR METASTATIC DISEASE IN A PATIENT | | | OF THIS AGE. CONSIDER FOLLOW-UP CHEST CT AND/OR BONE SCAN, ALONG | | | WITH SERUM/URINE PROTEIN ELECTROPHORESIS. 2. 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 3. LEFTWARD | | | CURVATURE OF THE UPPER THORACIC SPINE WITHOUT SIGNIFICANT THORACIC | | | DISC PATHOLOGY OR STENOSIS. Results of this study were phoned to | | | Dr. Cruz at the time of interpretation on October 26, 2013 at 1055 | | | hours. Dictated and Signed by: Govind Duran MD Electronically | | | signed: 10/26/2013 11:14 AM | | + + + + + | Procedure Note | + + | Rem[place], Rad Results In - 10/26/2013 11:18 AM PDT UNENHANCED MRI THORACIC SPINE 10/26/2013 | | 10:06 AMCLINICAL HISTORY: severe right thoracic paraspinous pain COMPARISON: Chest | | radiographs October 22, 2013, thoracic radiographs September 15, 2013,cervical radiographs October | | 2010 and cervical MRI August 23, 2010TECHNIQUE:? The following 3T MR sequences of the | | thoracic spine were obtained:1. ?Sagittal T1 and STIR.2.? Axial , coronal and sagittal | | T2.FINDINGS: There is leftward thoracic curvature centered at T4-5. There is a 2.3cm | | ovoid region of STIR hyperintensity in the right upper aspect of the sternalmanubrium, | | visible only on sagittal images provided through the region. Decreased T1-weighted | | signal and mixed T2 signal is noted at this level. Additional focal T2/STIR | | hyperintensity is noted at the base of the right H3ouchsklrwl process. A 3.1 cm rounded | | region of heterogeneously decreased H8njnsuy is noted in the left humeral head on the | | coronal images provided throughthe region. There is a stable 9 mm rounded mixed signal | | structure in the rightinferior aspect of the T2 vertebral body compared with cervical | | MRI of August, favoring an atypical hemangioma. Additional tiny, more | | typicalhemangiomata are visible elsewhere in the thoracic spine. Thoracic | | vertebralheight is maintained, without evident fracture or spondylolisthesis.Prominent | | reversal of the cervical lordosis centered at C4-5 persists and issimilar to previous | | MRI from 2011. Degenerative disc disease, spondylosis andmild retrolisthesis are again | | visible at several mid to lower thoracic levelsand appear grossly stable, along with | | fairly mild appearing central canalstenosis, allowing for limitations of the large | | aesgc-sl-otlg sagittal imagesprovided. Cervical neural foramina are not well evaluated | | on the providedimages. Imaged contents of the posterior fossa and foramen magnum | | areunremarkable.The spinal cord demonstrates normal signal intensity and caliber. The | | conusmedullaris terminates at L1-2. Minimal posterior disc bulges are present atseveral | | thoracic levels, without associated central canal or neuroforaminalstenosis.Imaged | | paraspinal, intrathoracic and upper abdominal structures areunremarkable.IMPRESSION -1. | | ABNORMAL SIGNAL IN THE STERNAL MANUBRIUM, RIGHT T7 TRANSVERSE PROCESS ANDLEFT HUMERAL | | HEAD, CONCERNING FOR MULTIPLE MYELOMA OR METASTATIC DISEASE IN APATIENT OF THIS AGE. | | CONSIDER FOLLOW-UP CHEST CT AND/OR BONE SCAN, ALONG WITHSERUM/URINE PROTEIN | | ELECTROPHORESIS.2. CHRONIC REVERSAL OF THE CERVICAL LORDOSIS WITH MULTILEVEL | | DEGENERATIVE DISCDISEASE AND MILD RETROLISTHESIS WHICH IS SIMILAR TO MRI OF AUGUST 23, | | 2010, ALONGWITH MILD APPEARING CENTRAL CANAL STENOSIS.3. LEFTWARD CURVATURE OF THE | | UPPER THORACIC SPINE WITHOUT SIGNIFICANT THORACICDISC PATHOLOGY OR STENOSIS.Results of | | this study were phoned to Dr. Cruz at the time of interpretationon October 26, 2013 at | | 1055 hours.Dictated and Signed by: Govind Duran MD Electronically signed: 10/26/2013 | | 11:14 AM | |stenosis. | | | |Imaged paraspinal, intrathoracic and upper abdominal structures are | |unremarkable. | | | |IMPRESSION - | |1. ABNORMAL SIGNAL IN THE STERNAL MANUBRIUM, RIGHT T7 TRANSVERSE PROCESS AND | |LEFT HUMERAL HEAD, CONCERNING FOR MULTIPLE MYELOMA OR METASTATIC DISEASE IN A | |PATIENT OF THIS AGE. CONSIDER FOLLOW-UP CHEST CT AND/OR BONE SCAN, ALONG WITH | |SERUM/URINE PROTEIN ELECTROPHORESIS. | | | |2. CHRONIC REVERSAL OF THE CERVICAL LORDOSIS WITH MULTILEVEL DEGENERATIVE DISC | |DISEASE AND MILD RETROLISTHESIS WHICH IS SIMILAR TO MRI OF AUGUST 23, 2010, ALONG | |WITH MILD APPEARING CENTRAL CANAL STENOSIS. | | | |3. LEFTWARD CURVATURE OF THE UPPER THORACIC SPINE WITHOUT SIGNIFICANT THORACIC | |DISC PATHOLOGY OR STENOSIS. | | | |Results of this study were phoned to Dr. Cruz at the time of interpretation | |on October 26, 2013 at 1055 hours. | | | |Dictated and Signed by: Govind Duran MD | | Electronically signed: 10/26/2013 11:14 AM | + + + +---------+ + + | Performing | Address | City/State/Zipcode | Phone Number | | Organization | | | | + +---------+ + + | MISCELLANEOUS LAB | | | [phone] | + +---------+ + + | MISCELANIOUS LAB | | | [phone] | + +---------+ + + documented in this encounter Visit Diagnoses + + | Diagnosis | + + | Thoracic sprain and strain, initial encounter | + + documented in this encounter"
--- OUTSIDE RECORDS SUMMARY | ~2019-05-18 | XMS | Encounter Summary ---
Demographics + + + | Address | [address] | | | [place] [address] | + + + | Home Phone | | + + + | Preferred Language | Unknown | + + + | Marital Status | | + + + | Taoism Affiliation | Unknown | + + + | Race | Unknown | + + + | Ethnic Group | Unknown | + + + Author + + + | Author | [facility] | | | and [place] | + + + | Organization | [facility] | | [...] | | | | | [place] [address] | | + + + + + | Hunter Jackson | ECON | [place] | | + + + + + | Wes Jackson | ECON | [place], [place] | | + + + + + | Oziel Jackson | ECON | [place], [place] | | + + + + + Care Team Providers + +------+ + | Care Football Coach Name | Role | Phone | + +------+ + | Rodolfo Cruz MD | PCP | | + +------+ + Reason for Visit + + + | Reason | Comments | + + + | Imaging Only | Schedule MRI | + + + Encounter Details +--------+ + + + + | Date | Type | Department | Care Team | Description | +--------+ + + + + | 01/05/ | Telephone | [facility] | Yany, | Imaging Only | | 2014 | | PHYSIATRY [address] | [address] | (Schedule MRI) | | | | [place], | [facility], | | | | | [place] [address] | [place] [address] | | | | | [phone] | [phone] | | | | | | | [...] STREETER | | | | | | [address] | | | | | | | | +--------+---------+ + + + | 11/21/ | Office | Cardiology | Yesi, | | | 2019 | Visit | | JOSE ALBERTO Linder [address] | | | | | | [place] | | | | | | [place] [address] | | | | | | [phone] | | | | | | | | +--------+---------+ + + + documented as of this encounter Visit Diagnoses Not on filedocumented in this encounter"
--- OUTSIDE RECORDS SUMMARY | ~2019-05-18 | XMS | Encounter Summary ---
Demographics + + + | Address | [address] | | | [place] [address] | + + + | Home Phone | | + + + | Preferred Language | Unknown | + + + | Marital Status | | + + + | Buddhism Affiliation | Unknown | + + + | Race | Unknown | + + + | Ethnic Group | Unknown | + + + Author + + + | Author | [facility] | | | and [place] | + + + | Organization | [facility] [...] | | | | | [place] [address] | | + + + + + | Hunter Jackson | ECON | [place] | | + + + + + | Wes Jackson | ECON | [place], [place] | | + + + + + | Oziel Jackson | ECON | [place], [place] | | + + + + + Care Team Providers + +------+ + | Care Ux Designer Name | Role | Phone | [...] + + | 03/22/ | Telephone | [facility] | Rodolfo Cruz, | Diagnostic Order; | | 2014 | | MEDICINE [address] | MD [address] | Lab Order | | | | [facility] | [place] | | | | | [place] [address] | [address] | | | | | [phone] | | | +--------+ + + + [...] STREETER | | | | | | [address] | | | | | | | | +--------+---------+ + + + | 11/21/ | Office | Cardiology | Yesi, | | | 2019 | Visit | | JOSE ALBERTO Linder [address] | | | | | | [place] | | | | | | [place] [address] | | | | | | [phone] | | | | | | | [...] mL/min/1.73m2 | [facility] | | | [facility] | RATE,ESTIMATED | | MEDICAL | | | | mL/min/1.68x1Vggi than | | CENTER - | | [...] [address] | [place] | [phone] | | [facility] | | [address] | | | - LABORATORY | | [...] ml/min/1.73m2 | [facility] | | | (REF) | if found over a 3 month | | | | | | period.GFR <15: Kidney | | | | | | failure.For | | | | | | Americans, multiply the | | | | | | calculated GFR by | | | | | | 1.210Testing Performed: | | | | | | [facility], [address], | | | | | | [place] [address] | | | | + + + + + + + + | Specimen | + + | Blood specimen | | (specimen) | + + + + + + + | Performing | Address | City/State/Zipcode | Phone Number | | Organization | | | | + + + + + | [facility] | [address] | [place] [address] | [phone] | + + + + + documented in this encounter Visit Diagnoses + + | Diagnosis | + + | Pre-procedure lab exam - Primary Pre-procedural laboratory examination | + + documented in this encounter"
--- OUTSIDE RECORDS SUMMARY | ~2019-05-18 | XMS | Encounter Summary ---
Demographics + + + | Address | [address] | | | [place] [address] | + + + | Home Phone | | + + + | Preferred Language | Unknown | + + + | Marital Status | | + + + | Jainism Affiliation | Unknown | + + + | Race | Unknown | + + + | Ethnic Group | Unknown | + + + Author + + + | Author | [facility] | | | and [place] | + + + | Organization | [facility] | | | and [place] | + + + | Address | Unknown | + + + | Phone | Unavailable | + + + Support + + + + + | Name | Relationship | Address | Phone | + + + + + | Osmin Jackson | ECON | [address] | | | | | [place] [address] | | + + + + + | Hunter Jackson | ECON | [place] | | + + + + + | Wes Jackson | ECON | [place], [place] | | + + + + + | Oziel Jackson | ECON | [place], [place] | | + + + + + Care Team Providers + +------+ + | Care Washer And Crusher Tender Name | Role | Phone | + +------+ + PCP | Unavailable | + +------+ + Encounter Details +--------+ + + + + | Date | Type | Department | Care Team | Description | +--------+ + + + + | 02/19/ | [facility] | [facility] | Rodolfo Cruz, | | | 2010 | Encounter | [facility] CTR [facility] | [address] | | | | | [address] | [place], [place] | | | | | [place] | [address] | | | | | [address] | | | | | | [phone] | | | +--------+ + + + [...] | | succinate (TOPROL | Daily. Taking /2 | | | 11 | 3 | [...] STREETER | | | | | | [address] | | | | | | | | +--------+---------+ + + + | 11/21/ | Office | Cardiology | Yesi, | | | 2019 | Visit | | JOSE ALBERTO Linder [address] | | | | | | [place], | | | | | | [place] [address] | | | | | | [phone] | | | | | | | | +--------+---------+ + + + documented as of this encounter Procedures + +--------+ + + + | Procedure Name | Priori | Date/Time | Associated Diagnosis | Comments | | | ty | | | | + +--------+ + + + | UA, MICROSCOPIC, | Routin | 02/19/2011 | | Results for this | | REFLEX | e | 8:57 AM | | procedure are in the | | | | PDT | | results section. | + +--------+ + + + | URINALYSIS, REFLEX | Routin | 02/19/2011 | | Results for this | | MICROSCOPIC AND/OR | e | 8:57 AM | | procedure are in the | | CULTURE | | PDT | | results section. | + +--------+ + + + | LIPID PROFILE | Routin | 02/19/2011 | | Results for this | | | e | 8:38 AM | | procedure are in the | | | | PDT | | results section. | + +--------+ + + + | CBC WITH | Routin | 02/19/2011 | | Results for this | | DIFFERENTIAL | e | 8:38 AM | | procedure are in the | | | | PDT | | results section. | + +--------+ + + + | TSH | Routin | 02/19/2011 | | Results for this | | | e | 8:38 AM | | procedure are in the | | | | PDT | | results section. | + +--------+ + + + | COMPREHENSIVE | Routin | 02/19/2011 | | Results for this | | METABOLIC PANEL | e | 8:38 AM | | procedure are in the | | | | PDT | | results section. | + +--------+ + + + documented in this encounter Results UABecky Reflex (02/19/2011 8:57 AM PDT) + + + + + + | Component | Value | Ref Range | Performed | Pathologist | | | | | At | Signature | + + + + + + | WBC UA | 0-2 | 0 - 1 /hpf | [facility] | | | | [facility] | | | | | | MEDICAL | | | | | | CENTER - | | | | | | LABORATORY | | + + + + + + | RBC UA | NONE | 0 - 4 /hpf | [facility] | | | | | [facility] | | | | | | MEDICAL | | | | | | CENTER - | | | | | | LABORATORY | | + + + + + + | SQUAMOUS | RARE | FEW /hps | [facility] | | | EPITHELIAL | | | [facility] | | | UA | | | MEDICAL | | | | | | CENTER - | | | | | | LABORATORY | | + + + + + + | BACTERIA UA | NONE | NONE /hpf | [facility] | | | | [facility] | | | | | | [facility]ICAL | | | | | | CENTER - | | | | | | LABORATORY | | + + + + + + | AMORPHOUS | MODERATE | /hpf | [facility] | | | CRYSTALS | | | [facility] | | | | | | MEDICAL | | | | | | CENTER - | | | | | | LABORATORY | | + + + + + + | Culture | NO | | [facility] | | | Indicated | | | [facility] | | [...] + | [facility] | [address] | [place] | [phone] | | [facility] | | [address] | | | - LABORATORY | | | | + + + + + | [facility] | [address] | [place] | | | [facility] | | [address] | | | - LABORATORY | | | | + + + + + Urinalysis, Reflex Microscopic and/or Culture (02/19/2011 8:57 AM PDT) + + + + + + | Component | Value | Ref Range | Performed | Pathologist | | | | | At | Signature | + + + + + + | COLLECTION | VOID | | [facility] | | | METHOD 1 | | [facility] | | | [...] + + + + | Clarity | HAZY | | [facility] | | | | [...] | | Urine | | | [facility] | | | | | | MEDICAL [...] - 1.030 | [facility] | | | [place] | | | [facility] | | [...] + + + | pH, Urine | 7.5 | 5.0 - 8.0 | [facility] | [...] + + + + | Leukocyte | SMALL | NEGATIVE | [facility] | | | Esterase, | | | [facility] | | | Urine | | | MEDICAL | | | | | | CENTER - | | | | | | LABORATORY | | + + + + + + | MICROSCOPIC | YES | | [facility] | | | ? | | | [facility] | | | | | [...] + | [facility] | [address] | [place] | [phone] | | [facility] | | [address] | | | - LABORATORY | | | | + + + + + | [facility] | [address] | [place] | | | [facility] | | [address] | | | - LABORATORY | | | | + + + + + TSH (02/19/2011 8:38 AM PDT) + + + + + + | Component | Value | Ref Range | Performed | Pathologist | | | | | At | Signature | + + + + + + | TSH | 1.11Comment: Testing | 0.34 - 5.60 | [facility] | | | | performed on the [facility] | uIU/mL | [facility] | | | | [place] [facility] | | MEDICAL | | | | Analyzer. | | CENTER - | | | | | | LABORATORY | | + + + + + + + + | Specimen | + + | | + + + + + + + | Performing | Address | City/State/Zipcode | Phone Number | | Organization | | | | + + + + + | [facility] | [address] | [place] | [phone] | | [facility] | | [address] | | | - LABORATORY | | | | + + + + + | [facility] | [address] | [place], [place] | | | [facility] | | [address] | | | - LABORATORY | | | | + + + + + Lipid Profile (02/19/2011 8:38 AM PDT) + + + + + + | Component | Value | Ref Range | Performed | Pathologist | | | | | At | Signature | + + + + + + | Triglycerid | 90 | 35 - 160 mg/dL | [facility] | | | es | | | [facility] | | | | | | MEDICAL | | | | | | CENTER - | | | | | | LABORATORY | | + + + + + + | Cholesterol | 200 | 150 - 200 mg/dL | [facility] | | | | | | [facility] | | | | | | MEDICAL | | | | | | CENTER - | | | | | | LABORATORY | | + + + + + + | HDL | 54 | 29 - 89 mg/dL | [facility] | | | | | | [facility] | | | | | | MEDICAL | | | | | | CENTER - | | | | | | LABORATORY | | + + + + + + | LDL, | 128 | <130 mg/dL | [facility] | | | Calculated | | | [facility] | | | | | | MEDICAL | | | | | | CENTER - | | | | | | LABORATORY | | + + + + + + | Chol/HDL | 3.7Comment: | | [facility] | | | Ratio | | | [facility] | | | | | | MEDICAL | | | | ------- RISK CATEGORY: | | CENTER - | | | | CHOL/HDL * T.CHOL * LDL | | LABORATORY | | | | CHOL * HDL CHOL | | | | | | | | | | | | RATIO DESIRABLE: (M) | | | | | | 4.0-6.7 <200 | | | | | | <130 >50 | | | | | | (F) | | | | | | 3.7-4.2 BORDERLINE:(M) | | | | | | 6.7-7.4 200-240 | | | | | | 130-160 <45 | | | | | | (F) | | | | | | 4.2-5.5 HIGH RISK: (M) | | | | | | >7.4 >240 | | | | | | >160 <35 | | | | | | (F) | | | | | | >5.5 | | | | | | | | | | | | | | | | | | --------- | | | | + + + + + + + + | Specimen | + + | | + + + + + + + | Performing | Address | City/State/Zipcode | Phone Number | | Organization | | | | + + + + + | [facility] | [address] | [place] | [phone] | | [facility] | | [address] | | | - LABORATORY | | | | + + + + + | [facility] | [address] | [place] | | | [facility] | | [address] | | | - LABORATORY | | | | + + + + + Comprehensive Metabolic Panel (02/19/2011 8:38 AM PDT) + + + + + + | Component | Value | Ref Range | Performed | Pathologist | | | | | At | Signature | + + + + + + | Glucose | 100 | 70 - 109 mg/dL | [facility] | | | | [...] + + + + | Alkaline | 58 | 40 - 110 IU/L | [facility] [...] Total | 7.6 | 6.0 - 7.8 gm/dL | [facility] | | | Protein | | | [facility] | | | | | | MEDICAL | | | | | | CENTER - | | | | | | LABORATORY | | + + + + + + | Albumin | 3.7 | 3.2 - 5.0 gm/dL | [facility] | | | | | | [facility] | | | | | | MEDICAL | | | | | | CENTER - | | | | | | LABORATORY | | + + + + + + | BUN | 14 | 7 - 18 mg/dL | [facility] | | | | | | [facility] | | | | | | MEDICAL | | | | | | CENTER - | | | | | | LABORATORY | | + + + + + + | Creatinine | 0.79 | 0.60 - 1.30 | [facility] | | | | | mg/dL | [facility] | | | | | | MEDICAL | | | | | | CENTER - | | | | | | LABORATORY | | + + + + + + | Estimated | >60Comment: For | >60 mL/min/A | [facility] | | | GFR | -Americans, | | [facility] | | | | please multiply the | | MEDICAL | | | | result by 1.210 | | CENTER - | | | | This is an estimated | | LABORATORY | | | | GFR and is based on | | | | | | a standard body | | | | | | mass and serum | | | | | | creatinine | | | | + + + + + + | BUN/Creatin | 17.7 | 12 - 20 | [facility] | | | ine Ratio | | | [facility] | | | | | | MEDICAL | | | | | | CENTER - | | | | | | LABORATORY | | + + + + + + | Na | 136 | 136 - 149 mEq/L | [facility] [...] + + + + | Cl | 105 | 98 - 109 mEq/l | [facility] | | | | | | [facility] | | | | | | MEDICAL | | | | | | CENTER - | | | | | | LABORATORY | | + + + + + + | CO2 | 29 | 24 - 31 mEq/L | [facility] | | | | | | [facility] | | | | | | MEDICAL | | | | | | CENTER - | | | | | | LABORATORY | | + + + + + + | Anion Gap | 6.2 | 6.0 - 17.0 | [facility] | [...] + | [facility] | [address] | [place] | [phone] | | [facility] | | [address] | | | - LABORATORY | | | | + + + + + | [facility] | [address] | [place] | | | [facility] | | [address] | | | - LABORATORY | | | | + + + + + CBC with Differential (02/19/2011 8:38 AM PDT) + + + + + + | Component | Value | Ref Range | Performed | Pathologist | | | | | At | Signature | + + + + + + | WBC | 7.7 | 4.0 - 11.0 K/uL | [facility] [...] + + + + | Hemoglobin | 13.7 | 11.5 - 16.0 | [facility] | | | | | gm/dL | [facility] | | | | | | MEDICAL | | | | | | CENTER - | | | | | | LABORATORY | | + + + + + + | Hematocrit | 40.5 | 34.0 - 47.0 % | [facility] | | | | | | [facility] | | | | | | MEDICAL | | | | | | CENTER - | | | | | | LABORATORY | | + + + + + + | MCV | 101.8 (H) | 83.0 - 101.0 fL | [facility] | | | | | | [facility] | | | | | | MEDICAL | | | | | | CENTER - | | | | | | LABORATORY | | + + + + + + | MCH | 34.5 | 28.0 - 35.0 pg | [facility] | | | | | | [facility] | | | | | | MEDICAL | | | | | | CENTER - | | | | | | LABORATORY | | + + + + + + | MCHC | 33.9 | 32.0 - 36.0 | [facility] | [...] + + + + | Platelet | 323 | 140 - 440 K/uL | [facility] | | | Count | | | [facility] | | | | | | MEDICAL | | | | | | CENTER - | | | | | | LABORATORY | | + + + + + + | % | 60.6 | 45 - 75 % | [facility] | | | Neutrophils | | | [facility] | | | | | | MEDICAL | | | | | | CENTER - | | | | | | LABORATORY | | + + + + + + | % | 25.1 | 20 - 45 % | [facility] | | | Lymphocytes | | | [facility] | | | | | | MEDICAL | | | | | | CENTER - | | | | | | LABORATORY | | + + + + + + | % Monocytes | 7.4 | 4 - 12 % | [facility] | | | | | | [facility] | | | | | | MEDICAL | | | | | | CENTER - | | | | | | LABORATORY | | + + + + + + | % | 6.3 (H) | 0 - 5 % | [facility] [...] + + + + | Absolute | 4.6 | 1.5 - 6.6 K/uL | [facility] | | | Neutrophils | | | [facility] | | | | | | MEDICAL | | | | | | CENTER - | | | | | | LABORATORY | | + + + + + + | Absolute | 1.9 | 0.6 - 3.2 K/uL | [facility] [...] + + + + | Absolute | 0.5 (H) | 0.0 - 0.4 K/uL | [facility] | | | Eosinophils | | | [facility] | | | | | | MEDICAL | | | | | | CENTER - | | | | | | LABORATORY | | + + + + + + | Absolute | 0.0 | 0.0 - 0.1 K/uL | [facility] [...] [address] | [place] | [phone] | | [facility] | | [address] | | | - LABORATORY | | | | + + + + + | [facility] | [address] | [place] | | | [facility] | | [address] | | | - LABORATORY | | | | + + + + + documented in this encounter Visit Diagnoses Not on filedocumented in this encounter"
--- OUTSIDE RECORDS SUMMARY | ~2019-05-18 | XMS | Encounter Summary ---
Demographics + + + | Address | [address] | | | [place] [address] | + + + | Home Phone [...] + | Author | [facility] | | | and [place] | + + + | Organization | [facility] | | | and [place] | + + + | Address | Unknown | + + + | Phone | Unavailable | + + + Support + + + + + | Name | Relationship | Address | Phone | + + + + + | Osmin Jackson | ECON | [address] | | | | | [place] [address] | | + + + + + | Hunter Jackson | ECON | [place] | | + + + + + | Wes Jackson | ECON | [place], [place] | | + + + + + | Ozeil Jackson | ECON | [place], [place] | | + + + + + Care Team Providers + +------+ + | Care Electronic Heat Seal Operator Name | Role | Phone | [...] | | | | | | | [address] | | | | | | | Phone: | | | | | | | [phone] | | | | | | | Fax: | | | | | | | [phone] | | +--------+ + + + + + Reason for Visit + + + | Reason | Comments | + + + | Referral | PT in [place] | + + + Encounter Details +--------+ + + + + | Date | Type | Department | Care Team | Description | +--------+ + + + + | 10/17/ | Telephone | [facility] | Rodolfo Cruz, | Referral (PT in | | 2015 | | MEDICINE [address] | MD Raya RASHID | M[place]) | | | | [facility] | [place], [place] | | | | | [place] [address] | [address] | | | | | [phone] | | | +--------+ + + + [...] | | | | | | [place] [address] | | | | | | [phone] | | | | | | | [...]
--- OUTSIDE RECORDS SUMMARY | ~2019-05-18 | XMS | Encounter Summary ---
Demographics + + + | Address | [address] | | | [place] [address] | + + + | Home Phone [...] Author | [facility] | | | and [place] | + + + | Organization | [facility] [...] | | | | | [place] [address] | | + + + + + | Hunter Jackson | ECON | [place] | | + + + + + | Wes Jackson | ECON | [place], [place] | | + + + + + | Oziel Jackson | ECON | [place], [place] | | + + + + + Care Team Providers + +------+ + | Care Customer Care Manager Name | Role | Phone | [...] + + | 11/24/ | Telephone | [facility] | Rodolfo Cruz, | Appointment | | 2013 | | MEDICINE [address] [place] [address] | MD [address] | | | | | Preet Menchaca | [place] | | | | | [place] [address] | [address] | | | | | [phone] | | | +--------+ + + + [...] | | | | | | [place] [address] | | | | | | [phone] | | | | | | | | +--------+---------+ + + + documented as of this encounter Visit Diagnoses Not on filedocumented in this encounter"
--- OUTSIDE RECORDS SUMMARY | ~2019-05-18 | XMS | Encounter Summary ---
Demographics + + + | Address | [address] | | | [place] [address] | + + + | Home Phone | | + + + | Preferred Language | Unknown | + + + | Marital Status | | + + + | Latter Day Affiliation | Unknown | + + + | Race | Unknown | + + + | Ethnic Group | Unknown | + + + Author + + + | Author | [facility] | | | and [place] | + + + | Organization | [facility] | | | and [place] | + + + | Address | Unknown | + + + | Phone | Unavailable | + + + Support + + + + + | Name | Relationship | Address | Phone | + + + + + | Osmin Jackson | ECON | [address] | | | | | [place] [address] | | + + + + + | Hunter Jackson | ECON | [place] | | + + + + + | Wes Jackson | ECON | [place], [place] | | + + + + + | Oziel Jackson | ECON | [place], [place] | | + + + + + Care Team Providers + +------+ + | Care Implant Coordinator Name | Role | Phone | [...] Specialty | Physical | Diagnoses | | [facility] | | | Services | Therapy | Cervical | Bal, | [place] | | | Required | | radiculopath | Harsha Moreno MD | PHYSICAL | | | | | y [facility] | [address] | THERAPY - | | | | | stenosis of | [place] | [place] | | | | | cervical | [place], [place] | [address] | | | | | region | [address] | [facility] | | | | | Stenosis of | Phone: | 15 | | | | | cervical | [phone] | [place], [place] | | | | | spine DDD | Fax: | [phone] | | | | | (degenerativ | [phone] | Phone: | | | | | e disc | | [phone] | | | | | disease), | | Fax: | | | | | cervical | | [phone] | | | | | Chronic | | | | | | | midline | | | | | | | thoracic | | | | | | | back pain | | | | | | | Procedures | | | | | | | HIM 07/30 | | | +--------+ + + + + + Reason for Visit + + + | Reason | Comments | + + + | Neck Pain | | + + + Encounter Details +--------+---------+ + + + | Date | Type | Department | Care Team | Description | +--------+---------+ + + + | 07/22/ | Office | [facility] | Harsha Selby | Chronic midline | | 2018 | Visit | PHYSIATRY [address] | [address] | thoracic back pain | | | | [place], | [address] | (Primary Dx); | | | | [place] [address] | [address] | Cervical | | | | [phone] | | radiculopathy; | | | | | | Foraminal stenosis | | | | | | of cervical region; | | | | | | Stenosis of cervical | | | | | | spine; DDD | | | | | | (degenerative disc | | | | | | disease), cervical | +--------+---------+ + + + Social History [...] + + + | Blood Pressure | 119/57 | 07/22/2017 10:53 AM | | | | | PDT | | + + + + + | Pulse | 53 | 07/22/2017 10:53 AM | | | | | PDT | | + + + + + | Temperature | - | - | | + + + + + | Respiratory Rate | 16 | 07/22/2017 10:53 AM | | | | | PDT | | + + + + + | Oxygen Saturation | - | - | | + + + + + | Inhaled Oxygen | - | - | | | Concentration | | | | + + + + + | Weight | 81.2 kg (179 lb) | 07/22/2017 10:53 AM | | | | | PDT | | + + + + + | Height | 165.1 cm (5' 5") | 07/22/2017 10:53 AM | | | | | PDT | | + + + + + | Body Mass Index | 29.79 | 07/22/2017 10:53 AM | | | | | PDT | | + + + + + documented in this encounter Patient Instructions Patient Instructions Venita Ray, Pet Resort Concierge - 07/22/2017 10:30 AM PDTDiscus s with your primary care provider about the use of Flector patch. Physical therapy has been prescribed. Please participate in physical therapy. If you have not be contacted for an appointment with physical therapy within one week, please contact [facility]. Once you have completed physical therapy please continue the home exercise progr am as outline by physical therapy, indefinitely. Return to clinic if symptoms worsen or fail to improve. documented in this encounter Progress Notes Harsha Selby MD - 07/22/2017 10:30 AM PDT Harsha Selby MD [address] [facility], [address] [place] [address] FAX: PHYSICAL MEDICINE AND REHABILITATION H&P CHIEF COMPLAINT: Chief Complaint Patient presents with Neck Pain HISTORY OF PRESENT ILLNESS: Soumya Jackson is a 81 y.o. female being seen today in follow-up for complaints of neck a nd upper back pain. She was last seen on 04/28/17. She has been found to have fairly signi ficant DDD of the cervical spine and previously it was recommended that she have cervical st eroid injeciton. Unfortunately she reports that the treatment was not effective. She has gutierrez d several other treatments as well but most have been ineffective with the exception of some relief with medications. She reports that her pain pain is somewhat relieved with CBD oil. She also gets some relief with lidocaine patches hydrocodone/apap and gabapentin at bedtime . She cannot tolerate gabapentin during the day. Overall she reports that her symptoms show no change. She rates the pain as moderate. She describes the pain as stabbing. Her symptoms worsen with nothing. Her symptoms improve wit h nothing. She does describe numbness of the left hand which she correlates with a previous stroke. She reports that she also has mild weakness of the left upper extremity. Prior injections have included cervical interlaminar steroid injection completed 04/28/17. She reports having 10-25% improvement directly following the injection. She reports that 2 weeks following the injection she experienced no significant improvement to her pain. Today she reports that the injection did not seem to help reduce pain. Her medications, allergies, past medical, surgical, social and family histories were review ed and updated as appropriate. CURRENT MEDICATIONS: Current [...] every 4 hours as needed for Pain. (Patient taking differently: Take 0.5-1 tablets by mouth every 4 hours as needed for Pain (7.5mg once at bedtime).) 40 tablet 0 L-Lysine HCl 500 MG [...] for this visit. ALLERGIES: Allergies Allergen Reactions Iodinated Diagnostic Agents Hives Diclofenac Sodium Other (See Comments) Duodenal Ulcer October 2013 Alendronate Sodium Patient not remember Celecoxib Celebrex - Patient not remember Risedronate Sodium Actonel - Patient not remember Penicillins Diarrhea Caused "black diarrhea" when she had her 4th child. Yellow Dye Itching REVIEW OF SYSTEMS: ROS GENERALLY: No fever, no night sweats, no anemia, no fatigue, no recent profound weight ch anges. EYES: No eye problems, + use of corrective lenses, no eye injury, no double vision, no bli ndness. EARS, NOSE, AND THROAT: No changes in taste or smell, no hearing difficulty, no ringing in the ears, no ear drainage, no dizziness, no voice changes, no difficulty swallowing, no sig nificant snoring, no sleep apnea, no sinus problems, no major dental work. NEUROLOGICALLY:The patient has + numbness/pain of arms, no numbness/pain of legs, no awake with numbness/pain, + weakness, no muscle aching, no coordination difficulty, no change in w alk, no head injury, no neck injury, no back injury, + pain in neck, no pain in back, no str kristina, no fainting spells, no loss of consciousness, no tremor/shaking, no seizures, no headac hes, no migraine, no memory loss, no speech difficulty, no confusion and no numbness of face . PSYCHIATRIC: No depression, + difficulty sleeping, +anxiety, no bipolar disorder, no psych otic episodes. CARDIOVASCULAR: No heart attacks, no heart murmur, no heart fluttering, no chest pain, no ankle swelling. LUNG DISEASE: No shortness of breath, no cough, no tuberculosis, no bloody cough, no asth ma, no emphysema/COPD. GASTROINTESTINAL: No bowel disease, no nausea or vomiting, no rectal bleeding, no constipa tion, no stool incontinence, no liver disease, no gallbladder disease, no abdominal pain, no ulcers. KIDNEY DISEASE: No urinary frequency, no painful or difficult urination, no incontinence. ENDOCRINE: No diabetes, + thyroid disease, no osteopenia or osteoporosis, no breast draina ge. SKIN: No breast lumps, no skin changes, no rashes, no itches. HEMATOLOGIC/LYMPHATIC: No enlarged lymph nodes, no easy or unusual bleeding, no personal h istory of cancer. RHEUMATOLOGIC: + joint arthritis, no rheumatoid arthritis. PHYSICAL EXAMINATION: Blood pressure 119/57, pulse 53, resp. rate 16, height 1.651 m (5' 5"), weight 81.2 kg (179 lb), not currently . Body mass index is 29.79 kg/m. GENERAL: The patient is well developed and well nourished. HEENT: Normocephalic and atraumatic. Normal sclerae without icterus. NECK (ANTERIOR): There is no apparent cervical lymphadenopathy or thyromegaly. Restricted range of motion with lateral tilt bilaterally. PULMONARY: The patient is in no acute respiratory distress with unlabored respirations. CARDIOVASCULAR: Regular rate and rhythm. Mild edema bilateral lower extremities. ABDOMEN: Non-distended. SKIN: Limited skin exam shows no significant rashes or lesions. NEUROLOGIC: The patient is awake, alert, and oriented. She follows simple and complex commands. Her speech is fluent. She comprehends speech well. She has no apparent deficits with short or mcc memory. The cranial nerves appear grossly intact. Sensory: patchy numbness in the wrist and hand region on the left. MOTOR EXAM: (5 IS NORMAL) * Indicates pain limited MUSCLE/ MOVEMENT: RIGHT LEFT Deltoids 5 5 Biceps 5 5 Triceps 5 5 Wrist Flexion 5 5 Wrist Extension 5 5 Finger Abduction 5 5 REFLEX: RIGHT LEFT BICEPS 2+ 2+ BRACHIORADIALIS 2+ 2+ TRICEPS 2+ 2+ MUSCULOSKELETAL : Arthritic changes in the hands bilaterally. Localized pain over mid thoracic approximately T7 right greater than the left. Spurling's test did seem to reproduce her symptoms. 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 I concur with the results as reported by the Radiologist. The imaging demonstrates: a reve rsal of the normal cervical lordosis. There is also multilevel DDD and resultant cervical s cady stenosis. ASSESSMENT: 1. Cervical radiculopathy 2. Foraminal stenosis of cervical region 3. Stenosis of cervical spine 4. DDD (degenerative disc disease), cervical PLAN: 1. Unfortunately Soumya Jackson had negative diagnostic and therapeutic response to cervi nicolas interlaminar steroid injection on 04/28/17. We discussed treatment options for neck pain include physical therapy, neuropathic pain medications, cervical steroid injections and as a last resort surgery. Soumya Jackson will start physical therapy for the treatment of neck pain. We discussed t hat physical therapy may help reduce pain. We discussed that physical therapy should focus o n neck and shoulder strengthening. 2. Surgical intervention was discussed today with Soumya Jackson. We discussed that surgi nicolas treatment is usually considered last resort. We discussed that surgical treatment is r ecommended if weakness is affecting function.We discussed that surgical treatment may be c onsidered if there is progressive numbness or weakness. We discussed that surgical treatme nt may be helpful for radicular symptoms, but neck pain may persist after surgical treatment . Soumya Jackson will have neurosurgery consult with for evaluation and treatment c ervical spinal stenosis. We discussed the risk include but are not limited to dysphonia and dysphagia. 2. In regards to neuropathic pain medication. Soumya Jackson is currently taking 100 mg g abapentin at bedtime and has sedation. Soumya Jackson has history of cardiac history and N SAID's are advised against. We discussed the use of flector patch. No medication changes wer e made at this time. We discussed the risks with the use of opiate pain medications. Recomme nd that she does not increase opaiate pain medicaiton. We discussed possibly having her try a Flector patch or other topical NSAID. She will discuss this with primary care provider as she is worried about potential side effects. I, Dr. Harsha Selby, personally performed the services described in this documentatio n, as scribed by PHYLLIS Rice in my presence, and it is both accurate and comple te. ELECTRONICALLY EDITED AND SIGNED BY: Harsha Selby MD, 07/24/2017 documented in this encounter Plan of Treatment +--------+---------+ + + + | Date | Type | Specialty | Care Team | Description | +--------+---------+ + + + | 06/02/ | Office | Orthopedic Surgery | Ulysses Jensen, | | 2019 | Visit | | MD Danny [address] | | | | | | [place] | | | | | | [phone] | | | | | | | | +--------+---------+ + + + | 11/21/ | Office | Cardiology | Yesi, | | 2019 | Visit | | JOSE ALBERTO Linder [address] | | | | | | [place], | | | | | | [place] [address] | | | | | | [phone] | | | | | | | | +--------+---------+ + + + + + +--------+ + + | Name | Type | Priori | Associated Diagnoses | Order Schedule | | | | ty | | | + + +--------+ + + | Physical Therapy - | Outpatient | Routin | Cervical | Ordered: 07/22/2017 | | Ambulatory Referral | Referral | e | radiculopathy | | | | | | Foraminal stenosis | | | | | | of cervical region | | | | | | Stenosis of cervical | | | | | | spine DDD | | | | | | (degenerative disc | | | | | | disease), cervical | | | | | | Chronic midline | | | | | | thoracic back pain | | + + +--------+ + + documented as of this encounter Visit Diagnoses + + | Diagnosis | + + | Chronic midline thoracic back pain - Primary | + + | Cervical radiculopathy Brachial neuritis or radiculitis nos | + + | Foraminal stenosis of cervical region Spinal stenosis in cervical region | + + | Stenosis of cervical spine Spinal stenosis in cervical region | + + | DDD (degenerative disc disease), cervical Degeneration of cervical intervertebral | | disc | + + documented in this encounter
--- OUTSIDE RECORDS SUMMARY | ~2019-05-18 | XMS | Encounter Summary ---
Demographics + + + | Address | [address] | | | [place] [address] | + + + | Home Phone [...] Author | [facility] | | | and [place] | + + + | Organization | [facility] | | | [...] | | | | | [place] [address] | | + + + + + | Hunter Jackson | ECON | [place] | | + + + + + | Wes Jackson | ECON | [place], [place] | | + + + + + | Oziel Jackson | ECON | [place], [place] | | + + + + + Care Team Providers + +------+ + | Care Surgery Center Administrator Name | Role | Phone | + [...] Description | +--------+---------+ + + + | 04/01/ | Office | [facility] | Rodolfo Cruz, | Asthma (Primary Dx); | | 2012 | Visit | [facility] [place] | [address] | Hypertension; | | | | [address] | [place] | Hyperlipidemia; | | | | [place] | [address] | GERD; Osteoarthritis | | | | [address] | |Osteoarthritis | | | | [phone] | | | +--------+---------+ + + + [...] + + + | Blood Pressure | 140/80 | 04/01/2013 2:03 PM | | | | | PST | | + + + + + | Pulse | 65 | 04/01/2013 2:03 PM | | | | | PST | | + + + + + | Temperature | 36.8 C (98.3 F) | 04/01/2013 2:03 PM | | | | | PST | | + + + + + | Respiratory Rate | 16 | 04/01/2013 2:03 PM | | | | | PST | | + + + + + | Oxygen Saturation | 93% | 04/01/2013 2:03 PM | | | | | PST | | + + + + + | Inhaled Oxygen | - | - | | | Concentration | | | | + + + + + | Weight | 94.8 kg (209 lb) | 04/01/2013 2:03 PM | | | | | PST | | + + + + + | Height | 167.6 cm (5' 6") | 04/01/2013 2:03 PM | | | | | PST | | + + + + + | Body Mass Index | 33.73 | 04/01/2013 2:03 PM | | | | | PST | | + + + + + documented in this encounter Progress Notes Rodolfo Cruz MD - 04/01/2013 2:41 PM PSTFormatting of this note might be different f rom the original. Subjective: Patient ID: Soumya Jackson is a 77 y.o. female. HPI DJD , hands and hips still aches. Last injection right shoulder helped from Dr Jensen for this. She is taking aspirin and diclofenac. As well as can be expected BPV, dizzyness with change in position on rare occasion, She did see Dr Davis for this. She has been to the urgent care and the ER for this. It is getting a little bit better. There is no ear pain. She went to [place]. This is no longer a problem with this. HTN blood pressure slightly higher in recent [...] tingling off and on continues, This again i s mostly unchanged. Hyperlipidemia, on Tricor, she has some muscle aches in her arms but she thinks it is from a previous bad massage. No weakness on the medication, compliant, now on Krill Oil. Asthma , occasional bronchitis, occasionally wheezy, was prescribed an ventolin and this h as helped, no SOB or wheezing at this point. GERD, She takes prilosec daily, she has occasional heartburn with the medication. There are no bloody or black stools, She understand the risks of the medication and she wishes to take the medication. She feels that the benefit outweighs the risk. This is unchanged. 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 Asthma 2. Hypertension 3. Hyperlipidemia 4. GERD 5. Osteoarthritis Plan: She looks and feels fine today. She will continue current meds. She will monitor her bloo d pressure. RTC months. She will let me know if she has any problems. documented in this encounter Plan of Treatment [...] | | | | | | [place] [address] | | | | | | [phone] | | | | | | | | +--------+---------+ + + + + +------+--------+ + + | Name | Type | Priori | Associated Diagnoses | Order Schedule | | | | ty | | | + +------+--------+ + + | CBC with | Lab | Routin | Hypertension | 1 Occurrences | | Differential | | e | | starting 04/01/2013 | | | | | | until 04/01/2014 | + +------+--------+ + + | Comprehensive | Lab | Routin | Hypertension | 1 Occurrences | | Metabolic Panel | | e | | starting 04/01/2013 | | | | | | until 04/01/2014 | + +------+--------+ + + | Urinalysis with | Lab | Routin | Hypertension | 1 Occurrences | | Microscopic if | | e | | starting 04/01/2013 | | Indicated | | | | until 04/01/2014 | + +------+--------+ + + documented as of this encounter Results TSH (10/22/2013 10:44 AM PDT) + + [...] + | [facility] | [address] | [place], [place] | [phone] | | [facility] | | [address] | | | - LABORATORY | | | | + + + + + | [facility] | [address] | [place], [place] | | | [facility] | | [address] | | | - LABORATORY | | | | + + + + + Lipid Profile (10/22/2013 10:44 AM PDT) + +-------+ + + + | Component | Value | Ref Range | Performed | Pathologist | | | | | At | Signature | + +-------+ + + + | Triglycerid | 80 | 35 - 160 mg/dL | [facility] | | | es | | | [...] | | | Ratio | | | [facility] | | | | | | MEDICAL | | | | | | CENTER - | | | | | | LABORATORY | | + +-------+ + + + | LDL, | 101 | <=130 mg/dL | [facility] | | | Calculated | | | [facility] | | [...] [facility] | [place] | [phone] | | [facility] | | [address] | | | - LABORATORY | | | | + + + + + | [facility] | [address] | [place] | | | [facility] | | [address] | | | - LABORATORY | | | | + + + + + documented in this encounter Visit Diagnoses + + | Diagnosis | + + | Asthma - Primary Unspecified asthma | + + | Hypertension Unspecified essential hypertension | + + | Hyperlipidemia Other and unspecified hyperlipidemia | + + | GERD Esophageal reflux | + + | Osteoarthritis Osteoarthrosis, unspecified whether generalized or localized, | | unspecified site | + + documented in this encounter
--- OUTSIDE RECORDS SUMMARY | ~2019-05-18 | XMS | Encounter Summary ---
Demographics + + + | Address | [address] | | | [place] [address] | + + + | Home Phone [...] + | Author | [facility] | | | and [place] | + + + | Organization | [facility] [...] | | | | | [place] [address] | | + + + + + | Hunter Jackson | ECON | [place] | | + + + + + | Wes Jackson | ECON | [place], [place] | | + + + + + | Oziel Jackson | ECON | [place], [place] | | + + + + + Care Team Providers + +------+ + | Care City Assessor Name | Role | Phone | + +------+ + | Rodolfo Cruz MD | PCP | | + +------+ + Encounter Details +--------+ + + + + | Date | Type | Department | Care Team | Description | +--------+ + + + + | 12/24/ | Hospital | [facility] | Rodolfo Cruz, | Right foot pain | | 2013 | Encounter | [facility] | MD [address] | | | | | [address] | [place], [place] | | | | | [place] | [address] | | | | | [address] | | | | | | [phone] | | | +--------+ + + + [...] | | | | | [place], [place] | | | | | | [address] | | | | | | | | +--------+---------+ + + + | 11/21/ | Office | Cardiology | Yesi, | | | 2019 | Visit | | JOSE ALBERTO Linder [address] | | | | | | [place], | | | | | | [place] [address] | | | | | | [phone] | | | | | | | [...] + | MIS[facility]LL[facility]OUS LAB | | | [phone] | + +---------+ + + | [facility] LAB | | | [phone] | + +---------+ + + documented in this encounter Visit Diagnoses + + | Diagnosis | + + | Right foot pain Pain in limb | + + documented in this encounter"
--- OUTSIDE RECORDS SUMMARY | ~2019-05-18 | XMS | Encounter Summary ---
Demographics + + + | Address | [address] | | | [place] [address] | + + + | Home Phone | | + + + | Preferred Language | Unknown | + + + | Marital Status | | + + + | Restoration Affiliation | Unknown | + + + | Race | Unknown | + + + | Ethnic Group | Unknown | + + + Author + + + | Author | [facility] | | | and [place] | + + + | Organization | [facility] | [...] | | | | | [place] [address] | | + + + + + | Hunter Jackson | ECON | [place] | | + + + + + | Wes Jackson | ECON | [place], [place] | | + + + + + | Oziel Jackson | ECON | [place], [place] | | + + + + + Care Team Providers + +------+ + | Care Technical Sales Representative Name | Role | Phone | + +------+ + | Rodolfo Cruz MD | PCP | | + +------+ + Reason for Visit + + + | Reason | Comments | + + + | Follow-up | 2 month | + + + | Hypothyroidism | | + + + Encounter Details +--------+---------+ + + + | Date | Type | Department | Care Team | Description | +--------+---------+ + + + | 10/25/ | Office | [facility] | Rodolfo Cruz, | Essential | | 2015 | Visit | MEDICINE [facility] | MD [address] | hypertension | | | | [address] | [place] [address] | (Primary Dx); | | | | [place] [address] | [address] | Depression with | | | | [phone] | | anxiety; Other | | | | | | specified anemias; | | | | | | Midline thoracic | | | | | | back pain | +--------+---------+ + + + Social History [...] + + + | Blood Pressure | 138/62 | 10/25/2014 1:51 PM | | | | | PDT | | + + + + + | Pulse | 59 | 10/25/2014 1:51 PM | | | | | PDT | | + + + + + | Temperature | 36.9 C (98.4 F) | 10/25/2014 1:51 PM | | | | | PDT | | + + + + + | Respiratory Rate | 16 | 10/25/2014 1:51 PM | | | | | PDT | | + + + + + | Oxygen Saturation | 97% | 10/25/2014 1:51 PM | | | | | PDT | | + + + + + | Inhaled Oxygen | - | - | | | Concentration | | | | + + + + + | Weight | 85.6 kg (188 lb 12.8 | 10/25/2014 1:51 PM | | | | oz) | PDT | | + + + + + | Height | 167.6 cm (5' 6") | 10/25/2014 1:51 PM | | | | | PDT | | + + + + + | Body Mass Index | 30.47 | 10/25/2014 1:51 PM | | | | | PDT | | + + + + + documented in this encounter Progress Notes Rodolfo Cruz MD - 10/25/2014 2:13 PM PDTFormatting of this note might be different f rom the original. Subjective: Patient ID: Soumya Jackson is a 79 y.o. female. HPI Epistaxis, Recurrent, She would like another visit with Dr Davis. She has not had a blee d in the last month. Multilevel Thoracic Spine DDD, DJD, She takes one hydrocodone per day for this. She would like to try physical therapy for this. This is much better today. She is sleeping on a war m rice bag which really seems to be helping. This is the same as ever. Voltaren gel seems to help. Hypothyroidism, She is on thyroid medication. She is compliant with the dosing. Depression with Anxiety, She is somewhat improved with the lexapro which she is taking fifi f of the dose. Her friend says thought that she has in general been miserable as of late. She had a nervous breakdown in the 60's, She then learned how to accomodate for this follow ing this experience. 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 No joint pain Skin: Neg for color [...] gross lesions Assessment: 1. Essential hypertension 2. Depression with anxiety 3. Other specified anemias 4. Midline thoracic back pain Plan: She looks and feels substantially improved at this point since our last visit. RTC 3 month s. documented in this encounter Plan of Treatment +--------+---------+ + + + | Date | Type | Specialty | Care Team | Description | +--------+---------+ + + + | 06/02/ | Office | Orthopedic Surgery | Ulysses Jensen, | | | 2019 | Visit | | MD [address] | | | | | | [place] [address] | | | | | | [address] | | | | | | | | +--------+---------+ + + + | 11/21/ | Office | Cardiology | Yesi, | | | 2019 | Visit | | JOSE ALBERTO [address] | | | | | | [place] | | | | | | [place] [address] | | | | | | [phone] | | | | | | | | +--------+---------+ + + + documented as of this encounter Results C-Reactive Protein, High Sensitivity (10/25/2014 3:05 PM PDT) + + + + + + | Component | Value | Ref Range | Performed | Pathologist | | | | | At | Signature | + + + + + + | CRP, High | 8.30 (H) | <=3.00 mg/L | [facility] | | | Sensitive | | | [facility] | | [...] [address] | [place] | [phone] | | [facility] | | [address] | | | - LABORATORY | | | | + + + + + CBC with Differential (10/25/2014 3:05 PM PDT) + +-------+ + + + | Component | Value | Ref Range | Performed | Pathologist | | | | | At | Signature | + +-------+ + + + | WBC | 10.4 | 4.0 - 11.0 K/uL | [facility] | | | | | | [facility] | | | | | | MEDICAL | | | | | | CENTER - | | | | | | LABORATORY | | + +-------+ + + + | RBC | 4.11 | 3.70 - 5.20 | [facility] | | | | | M/uL | [facility] | | | | | | MEDICAL | | | | | | CENTER - | | | | | | LABORATORY | | + +-------+ + + + | Hemoglobin | 13.9 | 11.5 - 16.0 | [facility] | | | | | g/dL | [facility] | | | | | | MEDICAL | | | | | | CENTER - | | | | | | LABORATORY | | + +-------+ + + + | Hematocrit | 40.9 | 34.0 - 47.0 % | [facility] | | | | | | [facility] | | | | | | MEDICAL | | | | | | CENTER - | | | | | | LABORATORY | | + +-------+ + + + | MCV | 99.6 | 83.0 - 101.0 fL | [facility] | | | | | | [facility] | | | | | | MEDICAL | | | | | | CENTER - | | | | | | LABORATORY | | + +-------+ + + + | MCH | 33.8 | 28.0 - 35.0 pg | [facility] | | | | | | [facility] | | | | | | MEDICAL | | | | | | CENTER - | | | | | | LABORATORY | | + +-------+ + + + | MCHC | 33.9 | 32.0 - 36.0 | [facility] | | | | | g/dL | [facility] | | | | | | MEDICAL | | | | | | CENTER - | | | | | | LABORATORY | | + +-------+ + + + | RDW-CV | 13.5 | <15.0 % | [facility] | | | | | | [facility] | | | | | | MEDICAL | | | | | | CENTER - | | | | | | LABORATORY | | + +-------+ + + + | Platelet | 328 | 140 - 440 K/uL | [facility] | | | Count | | | [facility] | | | | | | MEDICAL | | | | | | CENTER - | | | | | | LABORATORY | | + +-------+ + + + | MPV | 9.7 | fL | [facility] | | | | | | [facility] | | | | | | MEDICAL | | | | | | CENTER - | | | | | | LABORATORY | | + +-------+ + + + | % | 67.7 | 45.0 - 82.0 % | [facility] | | | Neutrophils | | | [facility] | | | | | | MEDICAL | | | | | | CENTER - | | | | | | LABORATORY | | + +-------+ + + + | % | 22.0 | 20.0 - 45.0 % | [facility] | | | Lymphocytes | | | [facility] | | | | | | MEDICAL | | | | | | CENTER - | | | | | | LABORATORY | | + +-------+ + + + | % Monocytes | 7.0 | 4.0 - 12.0 % | [facility] | | | | | | [facility] | | | | | | MEDICAL | | | | | | CENTER - | | | | | | LABORATORY | | + +-------+ + + + | % | 2.7 [...] | + +-------+ + + + | Absolute | 7.00 | 1.80 - 8.50 | [facility] | | | Neutrophils | | K/uL | [facility] | | | | | | MEDICAL | | | | | | CENTER - | | | | | | LABORATORY | | + +-------+ + + + | Absolute | 2.30 | 0.60 - 3.20 | [facility] | | | Lymphocytes | | K/uL | [facility] | | | | | | MEDICAL | | | | | | CENTER - | | | | | | LABORATORY | | + +-------+ + + + | Absolute | 0.70 | 0.00 - 1.00 | [facility] | | | Monocytes | | K/uL | [facility] | | | | | | MEDICAL | | | | | | CENTER - | | | | | | LABORATORY | | + +-------+ + + + | Absolute | 0.30 | 0.00 - 0.40 | [facility] | | | Eosinophils | | K/uL | [facility] | | | | | | MEDICAL | | | | | | CENTER - | | | | | | LABORATORY | | + +-------+ + + + | Absolute | 0.10 [...] + | [facility] | [address] | [place] | [phone] | | [facility] | | [address] | | | - LABORATORY | | | | + + + + + documented in this encounter Visit Diagnoses + + | Diagnosis | + + | Essential hypertension - Primary Unspecified essential hypertension | + + | Depression with anxiety Dysthymic disorder | + + | Other specified anemias | + + | Midline thoracic back pain | + + documented in this encounter
--- OUTSIDE RECORDS SUMMARY | ~2019-05-18 | XMS | Encounter Summary ---
Demographics + + + | Address | [address] | | | [place] [address] | + + + | Home Phone [...] [facility] | | | and [place] | + + + | Address | Unknown | + + + | Phone | Unavailable | + + + Support + + + + + | Name | Relationship | Address | Phone | + + + + + | Osmin Jackson | ECON | [address] | | | | | [place] [address] | | + + + + + | Hunter Jackson | ECON | [place] | | + + + + + | Wes Jackson | ECON | [place], [place] | | + + + + + | Oziel Jackson | ECON | [place], [place] | | + + + + + Care Team Providers + +------+ + | Care Telecommunications Switch Technician Name | Role | Phone | + +------+ + | Rodolfo Cruz MD | PCP | | + +------+ + Reason for Visit + + + | Reason | Comments | + + + | Pharyngitis | RM 3/ x 1 days | + + + Encounter Details +--------+---------+ + + + | Date | Type | Department | Care Team | Description | +--------+---------+ + + + | 08/30/ | Office | [facility] | Norbert Brown MD | Other seasonal | | 2016 | Visit | CARE [address] | [address] | allergic rhinitis | | | | [place] [address] | [place] [address] | (Primary Dx) | | | | [address] | [address] | | | | | [phone] | | | +--------+---------+ + + + [...] + + + | Blood Pressure | 126/52 | 08/31/2015 11:03 AM | | | | | PDT | | + + + + + | Pulse | 54 | 08/31/2015 11:03 AM | | | | | PDT | | + + + + + | Temperature | 37 C (98.6 F) | 08/31/2015 11:03 AM | | | | | PDT | | + + + + + | Respiratory Rate | 16 | 08/31/2015 11:03 AM | | | | | PDT | | + + + + + | Oxygen Saturation | 97% | 08/31/2015 11:03 AM | | | | | PDT | | + + + + + | Inhaled Oxygen | - | - | | | Concentration | | | | + + + + + | Weight | 84.7 kg (186 lb 11.2 | 08/31/2015 11:03 AM | | | | oz) | PDT | | + + + + + | Height | 162.6 cm (5' 4") | 08/31/2015 11:03 AM | | | | | PDT | | + + + + + | Body Mass Index | 32.05 | 08/31/2015 11:03 AM | | | | | PDT | | + + + + + documented in this encounter Patient Instructions Patient Instructions Norbert Brown MD - 08/31/2015 11:40 AM PDTFormatting of this note mi ght be different from the original. Causes of Nasal Allergies Nasal allergies are most commonly caused by one or more of four kinds of allergens: pollen (which causes seasonal allergies), house-dust mites, mold, and animals. Other substances, ca lled irritants, can bother the nose and make allergy symptoms worse. Pollen Plants reproduce by moving tiny grains of pollen from plant to plant. Some pollen is sen d by bees, and some is blown by the wind. It s the wind-blown pollen that causes nasal all ergies. The amount of pollen in the air varies from season to season. House-dust mites House-dust mites are tiny bugs too small to see. They can live in mattresses, blankets, tia ffed toys, carpets, and curtains. The droppings of these mites are a common indoor cause of nasal allergies. Mold Mold loves dark, damp areas. It tends to grow in bathrooms, basements, refrigerators, and i n the soil of houseplants. Mold reproduces by sending tiny grains called spores into the air . If these spores are breathed in, they can cause a nasal allergic reaction. Animals Pets such as cats, dogs, birds, horses, and rabbits are common causes of nasal allergies. F lakes of skin (dander), saliva left on fur when an animal cleans itself, urine in litter box es and cages, and feathers can all cause nasal allergies. Irritants make allergies worse Although irritants don t cause nasal allergies, they can make allergy symptoms worse. Cig arette smoke, perfume, aerosol sprays, smoke from wood stoves or fireplaces, car exhaust, an d strong odors are examples of irritants. [id number] [employer] [place], [place] [id number]. All righ ts reserved. This information is not intended as a substitute for professional medical care. Always follow your healthcare professional's instructions. Allergic Rhinitis Allergic rhinitis is an allergic reaction that affects the nose, and often the eyes. It s often known asnasal allergies. Nasal allergies are often due to things in the environment that are breathed in. Depending what you are sensitive to, nasal allergies may occur only d uring certain seasons. Or they may occur year round. Common indoor allergens include house d ust mites, mold, cockroaches, and pet dander. Outdoor allergens include pollen from trees, g rasses, and weeds. Symptoms include a drippy, stuffy, and itchy nose. They also include sneezing and red and i tchy eyes. You may feel tired more often. Severe allergies may also affect your breathing an d trigger a condition called asthma. Tests can be done to see what allergens are affecting you. You may be referred to an allerg y specialist for testing and further evaluation. Home care The healthcare provider may prescribe medicines to help relieve allergy symptoms. Ask the provider for advice on how to avoid substances that you are allergic to.Below are a few tips for each type of allergen. Pet dander: Do not have pets with fur and feathers. If you cannot avoid having a pet, keep it out of your bedroom and off upholstered furnit ure. Pollen: When pollen counts are high, keep windows of your car and home closed. If possible, use an air conditioner instead. Wear a filter mask when mowing or doing yard work. House dust mites: Wash bedding every week in warm water and detergent and dry on a hot setting. Cover the mattress, box spring, and pillows with allergy covers. If possible, sleep in a room with no carpet, curtains, or upholstered furniture. Cockroaches: Store food in sealed containers. Remove garbage from the home promptly. Fix water leaks Mold: Keep humidity low by using a dehumidifier or air conditioner. Keep the dehumidifier and air conditioner clean and free of mold. Clean moldy areas with bleach and water. In general: Vacuum once or twice a week. If possible, use a vacuum with a high-efficiency particulat e air (HEPA) filter. Do not smoke. Avoid cigarette smoke. Cigarette smoke is an irritant that can make sympto ms worse. Follow-up care Follow up as advised by the health care provider or our staff. If you were referred to an a llergy specialist, make this appointment promptly. When to seek medical advice Call your healthcare provider right away if the following occur: Coughing or wheezing Fever greater than 100.4F (38C) Continuing symptoms, new symptoms, or worsening symptoms Call 911 right awayif you have: Trouble breathing Hives (raised red bumps) Severe swelling of the face or severe itching of the eyes or mouth [id number] [employer]. [address] [place] [address]. All righ ts reserved. This information is not intended as a substitute for professional medical care. Always follow your healthcare professional's instructions. documented in this encounter Progress Notes Norbert Brown MD - 08/31/2015 11:33 AM PDT Subjective: Patient ID: Soumya Jackson is a 80 y.o. female. I have to say that past 24 hours has had a mild cough. Her voice was hoarse this a.m. There is slight soreness to her throat. She is suffering seasonal allergies at this time. No fever. HPI Patient's medications, allergies, past medical, surgical, social and family histories were obtained and reviewed as appropriate. Review of Systems no GI symptoms. No wheezing. Objective: Physical Exam Constitutional: Normally developed, adequately nourished, and not in acute distress. Does not appear acute ly ill. HENT: Right Ear: Tympanic membrane normal. Left Ear: Tympanic membrane normal. Nose: Mucosal edema and rhinorrhea present. Right sinus exhibits no maxillary sinus tendern ess and no frontal sinus tenderness. Left sinus exhibits no maxillary sinus tenderness and n o frontal sinus tenderness. Mouth/Throat: Posterior oropharyngeal erythema (moderate postnasal drainage) present. Cardiovascular: Cardiac rhythm is regular, and rate is within normal limits. Heart sounds are of good qual ity. No murmur or gallop heard. Pulmonary/Chest: No respiratory distress. Respiratory effort is normal. Clear breath sounds heard througho ut all lung amaya. Lymphadenopathy: She has no cervical adenopathy. Assessment: Allergic rhinitis and postnasal drip Plan: Counseled regarding management of her allergy symptoms, nasal congestion and mucus producti on. Some lcfh-kmq-hijnlvh allergy medicines are discussed. Steroid nasal sprays likewise d iscussed. Saltwater gargles. This note was dictated using [employer] voice recognition software. Occasional wrong- word or sound-alike substitutions may have occurred due to the inherent limitations of voice recogni tion software. Please read the chart carefully and recognize, using context, where these serrano bstitutions have occurred. documented in this enc ounter Plan of Treatment +--------+---------+ + + + | Date | Type | Specialty | Care Team | Description | +--------+---------+ + + + | 06/02/ | Office | Orthopedic Surgery | Ulysses Jensen, | | | 2019 | Visit | | MD [address] | | | | | | [place] | | | | | | [address] | | | | | | | | +--------+---------+ + + + | 11/21/ | Office | Cardiology | Yesi, | | | 2019 | Visit | | JOSE ALBERTO [address]inder [address] | | | | | | [facility] [place], | | | | | | [place] [address] | | | | | | [phone] | | | | | | | | +--------+---------+ + + + documented as of this encounter Visit Diagnoses + + | Diagnosis | + + | Other seasonal allergic rhinitis - Primary | + + documented in this encounter
--- OUTSIDE RECORDS SUMMARY | ~2019-05-18 | XMS | Encounter Summary ---
Demographics + + + | Address | [address] | | | [place] [address] | + + + | Home Phone [...] | Author | [facility] | | | and [place] | + + + | Organization | [facility] | [...] [place] | | | | | [place] [address] | | + + + + + | Hunter Jackson | ECON | [place] | | + + + + + | Wes Jackson | ECON | [place], [place] | | + + + + + | Oziel Jackson | ECON | [place], [place] | | + + + + + Care Team Providers + +------+ + | Care Electrician Control Equipment Name | Role | Phone | + [...] + + | 07/27/ | Office | [facility] | Ulysses Jensen, | Arthritis of | | 2019 | Visit | ORTHOPEDIC SURGERY | MD [address] [facility] | carpometacarpal | | | | [address] [facility] | [facility] [place] | ([facility]) joint of right | | | | [place], [place] | [address] | thumb (Primary Dx); | | | | [address] | | Rotator cuff tear | | | | [phone] | | arthropathy of right | | [...] | 82.6 kg (182 lb) | 07/27/2018 11:03 AM | | | | | PDT | | + + + + + | Height | 165.1 cm (5' 5") | 07/27/2018 11:03 AM | | | | | PDT | | + + + + + | Body Mass Index | 30.29 | 07/27/2018 11:03 AM | | | | | PDT | | + + + + + documented in this encounter Progress Notes Ulysses Jensen MD - 07/27/2018 11:30 AM PDTPatient returns and wishes to have right shoul franky and right first cmc injections Under sterile conditions today I injected her first cmc joint right thumb with celestone 1/ 2 cc and naropin 1/2 cc Under sterile conditions I then injected her right shoulder subacromial space with kenalog 40mg and naropin 3cc Will return as needed documented in this encounter [...] [place] | | | | | | [address] | | | | | | | | +--------+---------+ + + + | 11/21/ | Office | Cardiology | Yesi, | | | 2019 | Visit | | JOSE ALBERTO [address]inder [address] | | | | | | [place], | | | | | | [place] [address] | | | | | | [phone] | | | | | | | [...] + | betamethasone (CELESTONE | Given | 07/28/19 | 6 mg | | Other | | SOLUSPAN) injection 6 mg 6 mg, | | 19 11:37 | | | (Comment | | Intramuscular, ONCE, 07/27/18 | | AM PDT | | | ) | | at 1200, For 1 dose, Shake well. | | | | | | | Not for IV use., | | | | | | + +--------+ +------+------+ + +---+---+ | | | +---+---+ + +-------+ +-------+---+ + | triamcinolone acetonide | Given | 07/28/19 | 40 mg | | Shoulder | | (KENALOG-40) 40 mg/mL injection | | 19 11:37 | | | -Right | | [...]
--- OUTSIDE RECORDS SUMMARY | ~2019-05-18 | XMS | Encounter Summary ---
Demographics + + + | Address | [address] | | | [place] [address] | + + + | Home Phone [...] + | Author | [facility] | | | and [place] | + + + | Organization | [facility] | [...] | | | | | [place] [address] | | + + + + + | Hunter Jackson | ECON | [place] | | + + + + + | Wes Jackson | ECON | [place], [place] | | + + + + + | Oziel Jackson | ECON | [place], [place] | | + + + + + Care Team Providers + +------+ + | Care Timekeeping Supervisor Name | Role | Phone | [...] | +--------+ + + + + | 04/20/ | Telephone | [facility] | Rodolfo Cruz, | Appointment | | 2013 | | MEDICINE [address] [place] [address] | MD [address] | | | | | [address] | [address] [address] | | | | | [place] [address] | [address] | | | | | [phone] | | | +--------+ + + + [...] | | | | | | [place] [address] | | | | | | [phone] | | | | | | | | +--------+---------+ + + + documented as of this encounter Visit Diagnoses Not on filedocumented in this encounter"
--- OUTSIDE RECORDS SUMMARY | ~2019-05-18 | XMS | Encounter Summary ---
Demographics + + + | Address | [address] | | | [place] [address] | + + + | Home Phone | | + + + | Preferred Language | Unknown | + + + | Marital Status | | + + + | Temple Affiliation | Unknown | + + + | Race | Unknown | + + + | Ethnic Group | Unknown | + + + Author + + + | Author | [facility] | | | and Ohana | + + + | Organization | [facility] | [...] [place] | | | | | [place] [address] | | + + + + + | Hunter Jackson | ECON | [place] | | + + + + + | Wes Jackson | ECON | [place], [place] | | + + + + + | Oziel Jackson | ECON | [place], [place] | | + + + + + Care Team Providers + +------+ + | Care Airline Reservation Agent Name | Role | Phone | + [...] | disease; Epistaxis; | | | | [place], | [place], | Murmur; Essential | | | | [place] [address] | [place] [address] | hypertension with | | | | [phone] | [phone] | goal blood pressure | | | | | | less than 130/80; | | | | | | Coronary artery | | | | | | disease involving | | | | | | stony river coronary | | | | | | artery of stony river | | | | | | heart with unstable | | | | | | angina pectoris | | | | | | ([facility]); Chest pain, | | | | | [...] cervical Cervical radiculopathy Coronary artery disease involving st[place] coronary artery of st[place] river heart with unstable angina pectoris Stress hyperglycemia [...] reviewed during visit today primarily from [facility]: LIPID Lab Results Component Value Date [...] 65 09/18/2016 I reviewed records from [facility] for office visit on 04/2018 whic h is summarized in the HPI. RESULTS- I reviewed reports from [facility]: No results found. Above data and testing is reviewed this visit; testing below is historical data unless othe rwise specified. ASSESSMENT: 1. Coronary artery disease A. Seen at [facility] they had EKG and sent her home stating it was GERD B. Seen in the emergency room at [facility] for chest pain. Sh e was schedule for stress test and discharged home. C. Stress Test 05/16/16, is maximal asymptomatic stress test, [facility] er very poor function status, achieving [...] central AI, no , trace [place], trace [place], normal aorta other than mild calcification at [...] is in class II of th e [place] [employer] functional class. There are no [...] this chart may have been created with [employer] voice recognition software. Occasi onal wrong-word or [...] [place] | | | | | | [address] | | | | | | | | +--------+---------+ + + + | 11/21/ | Office | Cardiology | Yesi, | | | 2019 | Visit | | JOSE ALBERTO Linder [address] | | | | | | [place], | | | | | | [place] [address] | | | | | | [phone] | | | | | | | [...] involving | | | | | | stony river coronary | | | | | | artery of stony river | | | | | | heart with unstable | | | | | | angina pectoris | | | | | | ([facility]) Chest pain, | | | | | [...] MD | | | | | | ([id number]) on 06/01/2018 | | | | | [...] + + | Coronary artery disease involving stony river coronary artery of stony river heart with unstable | | angina pectoris (HCC) | + + | Chest pain, unspecified type | + + | Hyperlipidemia, mixed Mixed hyperlipidemia | + + documented in this encounter
--- OUTSIDE RECORDS SUMMARY | ~2019-05-18 | XMS | Encounter Summary ---
Demographics + + + | Address | [address] | | | [place] [address] | + + + | Home Phone [...] | Author | [facility] | | | and Ohana | + + + | Organization | [facility] | | | and [...] | | | | | [place] [address] | | + + + + + | Hunter Jackson | ECON | [place] | | + + + + + | Wes Jackson | ECON | [place], [place] | | + + + + + | Oziel Jackson | ECON | [place], [place] | | + + + + + Care Team Providers + +------+ + | Care Director Investor Relations Name | Role | Phone | + [...] Pulmonary | Rodolfo Reilly MD | [address] | | | | | nodules | [address] | [place], | | | | | Bone fibrous | [place] | [place] [address] | | | | | dysplasia | [place], [place] | Phone: | | | | | Procedures | [address] | [phone] | | | | | CT Chest w | Phone: | Fax: | | | | | Contrast | [phone] | [phone] | | | | | 02/16/14 | Fax: | | | | | | | [phone] | | +--------+--------+ + + + + Reason for Visit + + + | Reason | Comments | + + + | Follow-up | 2 week | + + + | Anemia | | + + + | Results | labs | + + + Encounter Details +--------+---------+ + + + | Date | Type | Department | Care Team | Description | +--------+---------+ + + + | 12/08/ | Office | [facility] | Rodolfo Cruz, | Pulmonary nodules | | 2013 | Visit | MEDICINE [address] [place] [address] | [address] | (Primary Dx); | | | | [place] | [place] [address] | Anemia; UGI bleed; | | | | [place] [address] | [address] | Bone fibrous | | | | [phone] | | dysplasia; | | | | | | Constipation; OA | | | | | | (osteoarthritis) | +--------+---------+ + + + Social History [...] + + + | Blood Pressure | 146/70 | 12/08/2013 11:23 AM | | | | | PDT | | + + + + + | Pulse | 54 | 12/08/2013 11:23 AM | | | | | PDT | | + + + + + | Temperature | 36.7 C (98 F) | 12/08/2013 11:23 AM | | | | | PDT | | + + + + + | Respiratory Rate | 16 | 12/08/2013 11:23 AM | | | | | PDT | | + + + + + | Oxygen Saturation | 98% | 12/08/2013 11:23 AM | | | | | PDT | | + + + + + | Inhaled Oxygen | - | - | | | Concentration | | | | + + + + + | Weight | 87.2 kg (192 lb 4.8 | 12/08/2013 11:23 AM | | | | oz) | PDT | | + + + + + | Height | 167.6 cm (5' 6") | 12/08/2013 11:23 AM | | | | | PDT | | + + + + + | Body Mass Index | 31.04 | 12/08/2013 11:23 AM | | | | | PDT | | + + + + + documented in this encounter Progress Notes Rodolfo Cruz MD - 12/08/2013 11:36 AM PDTFormatting of this note might be different f rom the original. Subjective: Patient ID: Soumya Jackson is a 78 y.o. female. HPI New left wrist pain, She is on glucosamine. She has not taken aspirin since her recent GI blood. Recent GI bleed. She became very pale. Some weakness, She had black stools the Friday. She is now on iron. She was subsequently hosp and transfused. She is no longer gutierrez ving any bloody or black stools. She is not longer taking her voltaren. Her radiating back pain which started in September is now resolved. She still gets an occasional once a day twinge under the right rib cage. Constipation now resolved, She takes prn miralax but has not lately. Daily BMs She is able to get the pain pills down to one at night. Anemia, She is on iron. 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 Pulmonary nodules CT Chest w Contrast 2. Anemia 3. UGI bleed 4. Bone fibrous dysplasia 5. Constipation Plan: She looks and feels fine. CT of chest repeat in 3 months. She can restart her aspirine. Voltaren gel trial documented in this encounter Plan of Treatment +--------+---------+ + + + | Date | Type | Specialty | Care Team | Description | +--------+---------+ + + + | 06/02/ | Office | Orthopedic Surgery | Ulysses Jensen, | | 2019 | Visit | | MD [address] | | | | | | [place], [place] | | | | | | [address] | | | | | | | | +--------+---------+ + + + | 11/21/ | Office | Cardiology | Yesi, | | | 2020 | Visit | | JOSE ALBERTO [address] | | | | | | [place], | | | | | | [place] [address] | | | | | | [phone] | | | | | | | [...] + | MISCELLANEOUS LAB | | | [phone] | + +---------+ + + | MISCELANIOUS LAB | | | [phone] | + +---------+ + + documented in this encounter Visit Diagnoses + + | Diagnosis | + + | Pulmonary nodules - Primary Other nonspecific abnormal finding of lung field | + + | Anemia Anemia, unspecified | + + | UGI bleed Hemorrhage of gastrointestinal tract, unspecified | + + | Bone fibrous dysplasia Other cyst of bone | + + | Constipation Unspecified constipation | + + | OA (osteoarthritis) Osteoarthrosis, unspecified whether generalized or localized, | | unspecified site | + + documented in this encounter
--- OUTSIDE RECORDS SUMMARY | ~2019-05-18 | XMS | Encounter Summary ---
Demographics + + + | Address | [address] | | | [place] [address] | + + + | Home Phone | | + + + | Preferred Language | Unknown | + + + | Marital Status | | + + + | Sabianism Affiliation | Unknown | + + + | Race | Unknown | + + + | Ethnic Group | Unknown | + + + Author + + + | Author | [facility] | | | and [place]ana | + + + | Organization | [facility] | [...] [place] | | | | | [place] [address] | | + + + + + | Hunter Jackson | ECON | [place] | | + + + + + | Wes Jackson | ECON | [place], [place] | | + + + + + | Oziel Jackson | ECON | [place], [place] | | + + + + + Care Team Providers + +------+ + | Care Wrecking Mechanic Name | Role | Phone | [...] + | 12/29/ | Office | [facility] | Rodolfo Cruz, | Hypothyroidism | | 2013 | Visit | MEDICINE PAGE | [address] | (Primary Dx); | | | | [address] | [place], [place] | Bronchitis; | | | | [place] | [address] | Osteoarthritis; | | | | [address] | | Hypertension; TIA; | | | | [phone] | | Hyperlipidemia; | | | | [...] is no ear pain. She went to [place]. 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
--- OUTSIDE RECORDS SUMMARY | ~2019-05-18 | XMS | Encounter Summary ---
Demographics + + + | Address | [address] | | | [place] [address] | + + + | Home Phone [...] + | Author | [facility] | | | and [place]ana | + + + | Organization | [facility] | [...] [place] | | | | | [place] [address] | | + + + + + | Hunter Jackson | ECON | [place] | | + + + + + | Wes Jackson | ECON | [place], [place] | | + + + + + | Oziel Jackson | ECON | [place], [place] | | + + + + + Care Team Providers + +------+ + | Care Lumber Grader Name | Role | Phone | + [...] + + | 08/30/ | Office | [facility] | Ulysses Jensen, | Rotator cuff | | 2016 | Visit | ORTHOPEDIC SURGERY | MD [address] | syndrome of right | | | | [address] [facility] | [place] [address] | shoulder (Primary | | | | [place], [place] | [address] | Dx); Primary | | | | [address] | | osteoarthritis of | | | | [phone] | | first | | | | [...] [place] | | | | | | [address] | | | | | | | | +--------+---------+ + + + | 11/21/ | Office | Cardiology | Yesi, | | | 2019 | Visit | | JOSE ALBERTO [address]inder [address] | | | | | | [place], | | | | | | [place] [address] | | | | | | [phone] | | | | | | | [...]
--- OUTSIDE RECORDS SUMMARY | ~2019-05-18 | XMS | Encounter Summary ---
Demographics + + + | Address | [address] | | | [place] [address] | + + + | Home Phone [...] + | Author | [facility] | | | and [place] | + + + | Organization | [facility] | | | and [place]ana | + + + | Address | Unknown | + + + | Phone | Unavailable | + + + Support + + + + + | Name | Relationship | Address | Phone | + + + + + | Osmin Jackson | ECON | [address] | | | | | [place] [address] | | + + + + + | Hunter Jackson | ECON | [place] | | + + + + + | Wes Jackson | ECON | [place], [place] | | + + + + + | Oziel Jackson | ECON | [place], [place] | | + + + + + Care Team Providers + +------+ + | Care Product Inspection Coordinator Name | Role | Phone | + +------+ + | Roodlfo Cruz MD | PCP | | + +------+ + Encounter Details +--------+ + + + + | Date | Type | Department | Care Team | Description | +--------+ + + + + | 10/22/ | Hospital | [facility] | Rodolfo Cruz, | Thoracic sprain and | | 2013 | Encounter | [facility] | MD Raya DING AVGabriel | strain, subsequent | | | | [address] [place] | [place], [place] | encounter; | | | | [place] | [address] | Hyperlipidemia; | | | | [address] | | Hypertension | | | | [phone] | | | +--------+ + + + [...] [address] | | | | | | [address] [place], | | | | | | [place] [address] | | | | | | [phone] | | | | | | | [...] - 1.030 | [facility] | | | [place] | | | [facility] | | [...] [address] | [place] | [phone] | | [facility] | | [address] | | | - LABORATORY | | | | + + + + + | [facility] | [address] | [place], [place] | | | [facility] | | [address] | | | - LABORATORY | | [...] + | [facility] | [address] | [place] | [phone] | | [facility] | | [address] | | | - LABORATORY | | | | + + + + + | [facility] | [address] | [place] | | | [facility] | | [address] | | | - LABORATORY | | [...] + | [facility] | [address] | [place] | [phone] | | [facility] | | [address] | | | - LABORATORY | | | | + + + + + | [facility] | [address] | [place] | | | [facility] | | [address] | | | - LABORATORY | | [...] + | [facility] | [address] | [place], [place] | [phone] | | [facility] | | [address] | | | - LABORATORY | | | | + + + + + | [facility] | [address] | [place], [place] | | | [facility] | | [address] | | | - LABORATORY | | [...] | 0.71 | 0.60 - 1.30 | [facility] | | | | | mg/dL | [facility] | | | | | | MEDICAL | | | | | | CENTER - | | | | | | LABORATORY | | + + + + + + | eGFR if not | >60Comment: GLOMERULAR | >=60 | [facility] | | | | [facility]TR[facility] | mL/min/1.73m2 | [facility] | | | [place] | RATE,ESTIMATED | | MEDICAL | | | | mL/min/1.42k1Itpq than | | CENTER - | | [...] + | [facility] | [address] | [place] | [phone] | | [facility] | | [address] | | | - LABORATORY | | | | + + + + + | [facility] | [address] | [place] | | | [facility] | | [address] | | | - LABORATORY | | [...] | Basophils | | K/uL | [facility] | [...] [address] | [place] | [phone] | | [facility] | | [address] | | | - LABORATORY | | | | + + + + + | [facility] | [address] | [place] | | | [facility] | | [address] | | | - LABORATORY | | [...]
--- OUTSIDE RECORDS SUMMARY | ~2019-05-18 | XMS | Encounter Summary ---
Demographics + + + | Address | [address] | | | [place] [address] | + + + | Home Phone [...] + + | Author | [facility] | | | and [place] | + + + | Organization | [facility] | | | and [...] | | | | | [place] [address] | | + + + + + | Hunter Jackson | ECON | [place] | | + + + + + | Wes Jackson | ECON | [place], [place] | | + + + + + | Oziel Jackson | ECON | [place], [place] | | + + + + + Care Team Providers + +------+ + | Care Curing Pickling Packer Name | Role | Phone | + [...] Heart | MD Irina | [address] | | | | | murmur | [address] | [place], | | | | | Procedures | [address] | [place] | | | | | ECHO | [place], | [address] | | | | | Complete [place] | [place] [address] | Phone: | | | | | ECHO HEART | Phone: | [phone] | | | | | [place] | [phone] | Fax: | | | | | [address] | Fax: | [phone] | | | | | [place] | [phone] | | | | | | ECHO [...] Required | | hypertension | [address] [facility] | [address] | | | | | | [address] [place] | [address] | | | | | | [place], [place] | [place], | | | | | | [address] | [place] [address] | | | | | | Phone: | Phone: | | | | | | [phone] | [phone] | | | | | | Fax: | Fax: | | | | | | [phone] | [phone] | +--------+ + + + + + Encounter Details +--------+---------+ + + + | Date | Type | Department | Care Team | Description | +--------+---------+ + + + | 10/17/ | Office | [facility] | Irina Simms, | Essential | | 2015 | Visit | CARDIOLOGY [address] | [address] | hypertension | | | | [place], | [place], | (Primary Dx); Heart | | | | [place] [address] | [place] [address] | murmur | | | | [phone] | [phone] | | | | | | | [...] chronic back pain . Patient also enjoys religion activity. 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 There is [...] murmur. Electronically signed by: Irina Simms MD [facility] 10/17/2014 Portions of this chart may have been created with [employer] voice recognition software. Occasi onal wrong-word or [...] | | | | | | [place] [address] | | | | | | [phone] | | | | | | | [...] Performed At | + + + | [facility] ECHOCARDIOGRAM REPORT | MARVIN | | STUDY DATE: 10/25/2014 PATIENT NAME: Soumya Jackson : | [facility] | | 1935 PCP: Rodolfo Cruz MD CLINICAL | [facility] | | HISTORY/DIAGNOSIS: MURMUR A transthoracic echocardiogram [...] by: | | | Irina Simms MD [facility] 10/25/2014 11:39 | | | Set Making Machine Operator: Samm Caceres, RDCS, RVT, RDMS | | + + + + + + + + | Performing | Address | City/State/Zipcode | Phone Number | | Organization | | | | + + + + + | [facility] | [address] | [place], [place] | [phone] | | [facility] | | [address] | | | - IMAGING | | [...]
--- OUTSIDE RECORDS SUMMARY | ~2019-05-18 | XMS | Encounter Summary ---
Demographics + + + | Address | [address] | | | [place] [address] | + + + | Home Phone | | + + + | Preferred Language | Unknown | + + + | Marital Status | | + + + | Scientologist Affiliation | Unknown | + + + | Race | Unknown | + + + | Ethnic Group | Unknown | + + + Author + + + | Author | [facility] | | | and [place] | + + + | Organization | [facility] | [...] [place] | | | | | [place] [address] | | + + + + + | Hunter Jackson | ECON | [place] | | + + + + + | Wes Jackson | ECON | [place], [place] | | + + + + + | Oziel Jackson | ECON | [place], [place] | | + + + + + Care Team Providers + +------+ + | Care Deaf Interpreter Name | Role | Phone | + +------+ + | Gunderson, Kellie PA | PCP | | + +------+ + Reason for Visit +--------+ + | Reason | Comments | +--------+ + | LABS | | +--------+ + Encounter Details +--------+ + + + + | Date | Type | Department | Care Team | Description | +--------+ + + + + | 05/29/ | Telephone | [facility] [place] | Yesi, | LABS | | 2019 | | BE[place] [address] | JOSE ALBERTO [address] | | | | | [place], | [place], | | | | | [place] [address] | [place] [address] | | | | | [phone] | [phone] | | | | | | | [...] STREETER | | | | | | [address] | | | | | | | | +--------+---------+ + + + | 11/21/ | Office | Cardiology | Yesi | | | 2019 | Visit | | JOSE ALBERTO [address] | | | | | | [place] | | | | | | [place] [address] | | | | | | [phone] | | | | | | | | +--------+---------+ + + + documented as of this encounter Visit Diagnoses Not on filedocumented in this encounter"
--- OUTSIDE RECORDS SUMMARY | ~2019-05-18 | XMS | Encounter Summary ---
Demographics + + + | Address | [address] | | | [place] [address] | + + + | Home Phone [...] Author + + + | Author | [facility] | + + + | Organization | [facility] | + + + | Address | Unknown | + + + | Phone | Unavailable | + + + Support + + +---------+ + | Name | Relationship | Address | Phone | + + +---------+ + | None None | ECON | Unknown | Unavailable | + + +---------+ + Care Team Providers + +------+ + | Care Drop Wire Aliner Name | Role | Phone | + +------+ + PCP | Unavailable | + +------+ + Encounter Details +--------+ + + + + | Date | Type | Department | Care Team | Description | +--------+ + + + + | 06/05/ | Ancillary | [facility] Faculty | | | | 2005 | Registratio | Practice [address] | | | | | n | [facility] | | | | | | [place] [address] | | | | | | [phone] | | | +--------+ + + + [...]
--- OUTSIDE RECORDS SUMMARY | ~2019-05-18 | XMS | Encounter Summary ---
Demographics + + + | Address | [address] | | | [place] [address] | + + + | Home Phone | | + + + | Preferred Language | Unknown | + + + | Marital Status | | + + + | Lutheran Affiliation | Unknown | + + + | Race | Unknown | + + + | Ethnic Group | Unknown | + + + Author + + + | Author | [facility] | | | and [place] | + + + | Organization | [facility] | | | and [place] | + + + | Address | Unknown | + + + | Phone | Unavailable | + + + Support + + + + + | Name | Relationship | Address | Phone | + + + + + | Osmin Jackson | ECON | [address] | | | | | [place] [address] | | + + + + + | Hunter Jackson | ECON | [place] | | + + + + + | Wes Jackson | ECON | [place], [place] | | + + + + + | Oziel Jackson | ECON | [place], [place] | | + + + + + Care Team Providers + +------+ + | Care Extractor Operator Solvent Process Name | Role | Phone | + [...] + + | 02/18/ | Refill | [facility] | Bree Nails RN | Medication Refill | | 2011 | | MEDICINE [facility] | | | | | | [place] | | | | | | [place] [address] | | | | | | [phone] | | | +--------+--------+ + + + [...] | | | | | | [place] [address] | | | | | | [phone] | | | | | | | | +--------+---------+ + + + documented as of this encounter Visit Diagnoses Not on filedocumented in this encounter"
--- OUTSIDE RECORDS SUMMARY | ~2019-05-18 | XMS | Encounter Summary ---
Demographics + + + | Address | [address] | | | [place] [address] | + + + | Home Phone [...] + | Author | [facility] | | | and [place] | + + + | Organization | [facility] | | | and [place] | + + + | Address | Unknown | + + + | Phone | Unavailable | + + + Support + + + + + | Name | Relationship | Address | Phone | + + + + + | Osmin Jackson | ECON | [address] | | | | | [place] [address] | | + + + + + | Hunter Jackson | ECON | [place] | | + + + + + | Wes Jackson | ECON | [place], [place] | | + + + + + | Oziel Jackson | ECON | [place], [place] | | + + + + + Care Team Providers + +------+ + | Care Reject Opener And Filler Name | Role | Phone | [...] | | | atherosclero | | [address] | | | | | sis of | | [place], | | | | | unspecified | | [place] [address] | | | | | type of | | Phone: | | | | | vessel, | | [phone] | | | | | [place] | | Fax: | | | | | graft | | [phone] | | | | | Coronary | | | | | | | atherosclero | | | | | | | sis of | | | | | | | unspecified | | | | | | | type of | | | | | | | vessel, | | | | | | | [place] | | | | | | | graft | | | | | | | Procedures | | | | | | | DC ENDOSCOPY | | | | | | | | | | | | | | W/VIDEO-ASST | | | | | | | VEIN | | | | | | | HARVEST,CABG | | | | | | | DC CABG, | | | | | | | ARTERY-VEIN, | | | | | | | FOUR DC | | | | | | | CABG, | | | | | | | ARTERIAL, | | | | | | | SINGLE | | | +--------+--------+ + + + + Encounter Details +--------+ + + + + | Date | Type | Department | Care Team | Description | +--------+ + + + + | 10/31/ | Preadmit | [facility] | Eze, | | | 2017 | Visit | [facility] | MD Christina [address] [place] [address] | | | | | [facility] [address] [place] | | | | | [address] [place] [address] | [id number] | | | | | [place] | | | | | | [address] | | | | | | [phone] | | | +--------+ + + + [...] STREETER | | | | | | [address] | | | | | | | | +--------+---------+ + + + | 11/21/ | Office | Cardiology | Yesi, | | | 2019 | Visit | | JOSE ALBERTO Linder [address] | | | | | | [place] | | | | | | [place] [address] | | | | | | [phone] | | | | | | | | +--------+---------+ + + + documented as of this encounter Visit Diagnoses Not on filedocumented in this encounter"
--- OUTSIDE RECORDS SUMMARY | ~2019-05-18 | XMS | Encounter Summary ---
Demographics + + + | Address | [address] | | | [place] [address] | + + + | Home Phone [...] | Author | [facility] | | | and [place] | + + + | Organization | [facility] | | | and [place] | + + + | Address | Unknown | + + + | Phone | Unavailable | + + + Support + + + + + | Name | Relationship | Address | Phone | + + + + + | Osmin Jackson | ECON | [address] | | | | | [place] [address] | | + + + + + | Hunter Jackson | ECON | [place] | | + + + + + | Wes Jackson | ECON | [place], [place] | | + + + + + | Oziel Jackson | ECON | [place], [place] | | + + + + + Care Team Providers + +------+ + | Care Molder Meat Name | Role | Phone | + [...] | SR | | | | | [phone] | | | +--------+ + + + [...] | | | | | | [place] [address] | | | | | | [phone] | | | | | | | [...]
--- OUTSIDE RECORDS SUMMARY | ~2019-05-18 | XMS | Encounter Summary ---
Demographics + + + | Address | [address] | | | [place] [address] | + + + | Home Phone [...] + + | Author | [facility] | | | and [place] | + + + | Organization | [facility] | | | and [place] | + + + | Address | Unknown | + + + | Phone | Unavailable | + + + Support + + + + + | Name | Relationship | Address | Phone | + + + + + | Osmin Jackson | ECON | [address] | | | | | [place] [address] | | + + + + + | Hunter Jackson | ECON | [place] | | + + + + + | Wes Jackson | ECON | [place], [place] | | + + + + + | Oziel Jackson | ECON | [place], [place] | | + + + + + Care Team Providers + +------+ + | Care It Corporate Recruiter Name | Role | Phone | + +------+ + PCP | Unavailable | + +------+ + Encounter Details +--------+ + + + + | Date | Type | Department | Care Team | Description | +--------+ + + + + | 05/14/ | [facility] | [facility] | Rodolfo Cruz, | | | 2010 | Encounter | MED CTR XRAY [address] | [address] | | | | | [place] | [place], [place] | | | | | [place] [address] | [address] | | | | | [phone] | | | +--------+ + + + [...] | | | | | | [place] [address] | | | | | | [phone] | | | | | | | | +--------+---------+ + + + documented as of this encounter Visit Diagnoses Not on filedocumented in this encounter"
--- OUTSIDE RECORDS SUMMARY | ~2019-05-18 | XMS | Encounter Summary ---
Demographics + + + | Address | [address] | | | [place] [address] | + + + | Home Phone [...] Author | [facility] | | | and [place] | + + + | Organization | [facility] | [...] | | | | | [place] [address] | | + + + + + | Hunter Jackson | ECON | [place] | | + + + + + | Wes Jackson | ECON | [place], [place] | | + + + + + | Oziel Jackson | ECON | [place], [place] | | + + + + + Care Team Providers + +------+ + | Care Reinsurance Clerk Name | Role | Phone | [...] | +--------+ + + + + | 01/25/ | Telephone | [facility] | Rodolfo Cruz, | Medication Refill | | 2013 | | MEDICINE [facility] [address] | MD [address] | | | | | [place] | [place] [address] | | | | | [place] [address] | [address] | | | | | [phone] | | | +--------+ + + + [...] STREETER | | | | | | [address] | | | | | | | | +--------+---------+ + + + | 11/21/ | Office | Cardiology | Yesi, | | | 2019 | Visit | | JOSE ALBERTO Linder [address] | | | | | | [place] | | | | | | [place] [address] | | | | | | [phone] | | | | | | | | +--------+---------+ + + + documented as of this encounter Visit Diagnoses + + | Diagnosis | + + | Back pain - Primary Backache, unspecified | + + documented in this encounter"
--- OUTSIDE RECORDS SUMMARY | ~2019-05-18 | XMS | Encounter Summary ---
Demographics + + + | Address | [address] | | | [place] [address] | + + + | Home Phone [...] | Author | [facility] | | | and [place] | + + + | Organization | [facility] | | [...] | | | | | [place] [address] | | + + + + + | Hunter Jackson | ECON | [place] | | + + + + + | Wes Jackson | ECON | [place], [place] | | + + + + + | Oziel Jackson | ECON | [place], [place] | | + + + + + Care Team Providers + +------+ + | Care Rn Forensic Name | Role | Phone | + [...] Description | +--------+--------+ + + + | 05/15/ | Refill | [facility] | Rodolfo Cruz, | Medication Refill | | 2016 | | MEDICINE [address] | MD [address] | | | | | [place] | [place] [address] | | | | | [place] [address] | [address] | | | | | [phone] | | | +--------+--------+ + + + [...] | | | | | | [place] [address] | | | | | | [phone] | | | | | | | | +--------+---------+ + + + documented as of this encounter Visit Diagnoses + + | Diagnosis | + + | Insomnia, unspecified insomnia - Primary | + + documented in this encounter"
--- OUTSIDE RECORDS SUMMARY | ~2019-05-18 | XMS | Encounter Summary ---
Demographics + + + | Address | [address] | | | [place] [address] | + + + | Home Phone | | + + + | Preferred Language | Unknown | + + + | Marital Status | | + + + | Spiritism Affiliation | Unknown | + + + | Race | Unknown | + + + | Ethnic Group | Unknown | + + + Author + + + | Author | [facility] | | | and [place] | + + + | Organization | [facility] [...] | | | | | [place] [address] | | + + + + + | Hunter Jackson | ECON | [place] | | + + + + + | Wes Jackson | ECON | [place], [place] | | + + + + + | Oziel Jackson | ECON | [place], [place] | | + + + + + Care Team Providers + +------+ + | Care Machine Oiler Name | Role | Phone | + +------+ + | Rodolfo Cruz MD | PCP | | + +------+ + Reason for Visit + + + | Reason | Comments | + + + | Medication | | | Management | | + + + Encounter Details +--------+ + + + + | Date | Type | Department | Care Team | Description | +--------+ + + + + | 07/18/ | Telephone | [facility] | Rodolfo Cruz, | Medication | | 2015 | | MEDICINE [address] [place] [address] | MD [address] | Management | | | | [place] | [place] [address] | | | | | [place] [address] | [address] | | | | | [phone] | | | +--------+ + + + [...] | | | | | | [place] [address] | | | | | | [phone] | | | | | | | | +--------+---------+ + + + documented as of this encounter Visit Diagnoses Not on filedocumented in this encounter"
--- OUTSIDE RECORDS SUMMARY | ~2019-05-18 | XMS | Encounter Summary ---
Demographics + + + | Address | [address] | | | [place] [address] | + + + | Home Phone [...] Author | [facility] | | | and [place] | + + + | Organization | [facility] | | | and [place] | + + + | Address | Unknown | + + + | Phone | Unavailable | + + + Support + + + + + | Name | Relationship | Address | Phone | + + + + + | Osmin Jacksno | ECON | [address] | | | | | [place] [address] | | + + + + + | Hunter Jackson | ECON | [place] | | + + + + + | Wes Jackson | ECON | [place], [place] | | + + + + + | Oziel Jackson | ECON | [place], [place] | | + + + + + Care Team Providers + +------+ + | Care Extrusion Press Operator Name | Role | Phone | + +------+ + | Rodolfo Cruz MD | PCP | | + +------+ + Reason for Visit + + + | Reason | Comments | + + + | Chest Pain | rib cage | + + + Encounter Details +--------+---------+ + + + | Date | Type | Department | Care Team | Description | +--------+---------+ + + + | 10/22/ | Office | [facility] | Rodolfo Cruz, | Thoracic sprain and | | 2013 | Visit | MEDICINE [address] [place] [address] | MD [address] | strain, initial | | | | Street [place] | [place], [place] | encounter (Primary | | | | [place] [address] | [address] | Dx); Thoracic sprain | | | | [phone] | | and strain, | | | | | | subsequent encounter | +--------+---------+ + + + Social History [...] + + + | Blood Pressure | 122/70 | 10/22/2013 9:43 AM | | | | | PDT | | + + + + + | Pulse | 69 | 10/22/2013 9:43 AM | | | | | PDT | | + + + + + | Temperature | 36.2 C (97.1 F) | 10/22/2013 9:43 AM | | | | | PDT | | + + + + + | Respiratory Rate | 16 | 10/22/2013 9:43 AM | | | | | PDT | | + + + + + | Oxygen Saturation | 98% | 10/22/2013 9:43 AM | | | | | PDT | | + + + + + | Inhaled Oxygen | - | - | | | Concentration | | | | + + + + + | Weight | 91.6 kg (202 lb) | 10/22/2013 9:43 AM | | | | | PDT | | + + + + + | Height | 167.6 cm (5' 6") | 10/22/2013 9:43 AM | | | | | PDT | | + + + + + | Body Mass Index | 32.6 | 10/22/2013 9:43 AM | | | | | PDT | | + + + + + documented in this encounter Progress Notes Rodolfo Cruz MD - 10/22/2013 10:12 AM PDTFormatting of this note might be different f rom the original. Subjective: Patient ID: Soumya Jackson is a 78 y.o. female. HPI Right mid back pain unchanged from previous.It is not getting worse, It is intermittently a 10, once a day. It radiates around the right chest to the front of the ribs. There is n o fever. There is some SOB when it hurts. Pain has been going on a month or so. The pa in is really bothering. There is weakness in the back with posture. Ice seems to help. Ly ing down sometimes help. PT did not really help so she is no longer going. The therapist t hinks she should be back in the pool. Sometimes it seems like she is on fire when it wraps around to the right. She is about out of pain pills. She is taking a pain pill qid. Karlo etimes the pain is a zero. Everytime she lies on either side it gets worse. This whole th ing was brought on by a severe cough a month or so ago. Sometimes a heating pad helps. There is no blood in the urine or stool. Review of Systems Objective: Physical Exam Heent, WNL, No carotid bruit Chest CTAB Heart RR&R /s M Abd S,NT,ND,BS+ Ext, no CCor E Neuro Non-focal Lymph, no cervical, axillary, inguinal adenopathy Musculoskeletal, no gross deformity or loss or range of motion, NTTP Skin, no gross lesions Assessment: 1. Thoracic sprain and strain, initial encounter HYDROcodone-acetaminophen (NORCO) 5-325 m g per tablet 2. Thoracic sprain and strain, subsequent encounter Plan: CXR today, MRI is pending, CBC, CMP, UA, Will give her a stronger norco. documented in this encounter Plan of Treatment +--------+---------+ + + + | Date | Type | Specialty | Care Team | Description | +--------+---------+ + + + | 06/02/ | Office | Orthopedic Surgery | Ulysses Jensen, | | | 2019 | Visit | | MD [address] | | | | | | [place] | | | | | | [address] | | | | | | | | +--------+---------+ + + + | 11/21/ | Office | Cardiology | Yesi, | | | 2019 | Visit | | JOSE ALBERTO Linder [address] | | | | | | [place] | | | | | | [place] [address] | | | | | | [phone] | | | | | | | | +--------+---------+ + + + documented as of this encounter Results XR Chest PA and Lateral (10/22/2013 11:22 AM PDT) + + | Specimen | + + | | + + + + + | Narrative | Performed At | + + + | XR CHEST PA AND LATERAL. 10/22/2013 11:22 AM HISTORY: thoracic | MISCELANIOUS | | pain . COMPARISON: 04/04/2009 FINDINGS: Heart size is | LAB | | within normal limits. There is calcification of the tortuous aorta. | | | Hyperexpansion of the lungs with flattening of the hemidiaphragms | | | and increased lucency in the upper lung zones, as can be seen with | | | emphysematous COPD. No pleural effusion or pneumothorax. No focal | | | consolidation to suggest pneumonia. Diffuse degenerative disc | | | disease . Osteopenia. No acute osseous or soft tissue | | | abnormalities. 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 No focal consolidation to suggest pneumonia. | | | Dictated and Signed by: Gaurav Masters MD Electronically | | | signed: 10/22/2013 12:06 PM | | + + + + + | Procedure Note | + + | Remington, Rad Results In - 10/22/2013 12:09 PM PDT XR CHEST PA AND LATERAL. 10/22/2013 | | 11:22 AMHISTORY: thoracic pain . COMPARISON: 04/04/2009FINDINGS:Heart size is within | | normal limits. There is calcification of the tortuousaorta. Hyperexpansion of the | | lungs with flattening of the hemidiaphragms andincreased lucency in the upper lung | | zones, as can be seen with emphysematousCOPD. No pleural effusion or pneumothorax. No | | focal consolidation to suggestpneumonia. Diffuse degenerative disc disease . | | Osteopenia. No acute osseousor soft tissue abnormalities.IMPRESSION -Findings | | compatible with emphysematous COPD. No focal consolidation to suggestpneumonia.Dictated | | and Signed by: Gaurav Masters MD Electronically signed: 10/22/2013 12:06 PM | |increased lucency in the upper lung zones, as can be seen with emphysematous | |COPD. No pleural effusion or pneumothorax. No focal consolidation to suggest | |pneumonia. Diffuse degenerative disc disease . Osteopenia. No acute osseous | |or soft tissue abnormalities. | | | | | |IMPRESSION - | |Findings compatible with emphysematous COPD. No focal consolidation to suggest | |pneumonia. | | | |Dictated and Signed by: Gaurav Masters MD | | Electronically signed: 10/22/2013 12:06 PM | + + + +---------+ + + | Performing | Address | City/State/Zipcode | Phone Number | | Organization | | | | + +---------+ + + | [facility] | | | [phone] | + +---------+ + + | MISCELANIOUS LAB | | | [phone] | + +---------+ + + Urinalysis with Microscopic if Indicated (10/22/2013 10:53 [...] - 1.030 | [facility] | | | [address] | | | [facility] | | [...] | | n, Urine | | | [address] | [...] [address] | [place] | [phone] | | [facility] | | [address] | | | - LABORATORY | | | | + + + + + | [facility] | [address] | [place] | | | [facility] | | [address] | | | - LABORATORY | | | | + + + + + Sedimentation Rate (10/22/2013 10:44 AM PDT) + +--------+ + + + | Component | Value | Ref Range | Performed | Pathologist | | | | | At | Signature | + +--------+ + + + | ESR | 68 (H) | <30 mm/hr | [facility] | | [...] + | [facility] | [address] | [place] | [phone] | | [facility] | | [address] | | | - LABORATORY | | | | + + + + + | [facility] | [address] | [place] | | | [facility] | | [address] | | | - LABORATORY | | [...] 13 | 7 - 18 mg/dL | [facility] | | | | | | [facility] | | | | | | MEDICAL | | | | | | CENTER - | | | | | | LABORATORY | | + + + + + + | Creatinine | 0.71 | 0.60 - 1.30 | [facility] | | | | | mg/dL | [facility] | | | | | | MEDICAL | | | | | | CENTER - | | | | | | LABORATORY | | + + + + + + | eGFR if not | >60Comment: GLOMERULAR | >=60 | [facility] | | | | FILTRATION | mL/min/1.73m2 | [facility] | | | GAMBIAN | RATE,ESTIMATED | | MEDICAL | | | | mL/min/1.52k7Myvm than | | CENTER - | | [...] | | | | | mg/dL | [facility] | | | | | | MEDICAL [...] + | [facility] | [address] | [place], [place] | [phone] | | [facility] | | [address] | | | - LABORATORY | | | | + + + + + | [facility] | [address] | [place] | | | [facility] | | [address] | | | - LABORATORY | | [...] + | [facility] | [address] | [place], [place] | [phone] | | [facility] | | [address] | | | - LABORATORY | | | | + + + + + | [facility] | [address] | [place], [place] | | | [facility] | | [address] | | | - LABORATORY | | | | + + + + + documented in this encounter Visit Diagnoses + + | Diagnosis | + + | Thoracic sprain and strain, initial encounter - Primary | + + | Thoracic sprain and strain, subsequent encounter | + + documented in this encounter
--- OUTSIDE RECORDS SUMMARY | ~2019-05-18 | XMS | Encounter Summary ---
Demographics + + + | Address | [address] | | | [place] [address] | + + + | Home Phone [...] | Author | [facility] | | | and [place] | + + + | Organization | [facility] | [...] | | | | | [place] [address] | | + + + + + | Hunter Jackson | ECON | [place] | | + + + + + | Wes Jackson | ECON | [place], [place] | | + + + + + | Oziel Jackson | ECON | [place], [place] | | + + + + + Care Team Providers + +------+ + | Care Program Manager Transportation Name | Role | Phone | + [...] | Visit | ORTHOPEDIC 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[address] [facility] | syndrome of right | | | | [address] [facility] | [place] [address] | shoulder (Primary | | | | [place], [place] | [address] | Dx); [facility] arthritis | | | | [address] | | | | | | [phone] | | | +--------+---------+ + + + [...] [place] | | | | | | [address] | | | | | | | | +--------+---------+ + + + | 11/21/ | Office | Cardiology | Yesi, | | | 2019 | Visit | | JOSE ALBERTO [address]inder [address] | | | | | | [place], | | | | | | [place] [address] | | | | | | [phone] | | | | | | | [...] | | | | | modification) on [facility] 08/05/13 at | | | | | [...] PDT | | | | | ONCE, [facility] 08/05/13 at 1200, For 1 | | | | | | | dose, Shake well. Not for IV | | | | | | | use., | | | | | | + +-------+ +-------+---+---+ +---+---+ | | | +---+---+ documented in this encounter
--- OUTSIDE RECORDS SUMMARY | ~2019-05-18 | XMS | Encounter Summary ---
Demographics + + + | Address | [address] | | | [place] [address] | + + + | Home Phone | | + + + | Preferred Language | Unknown | + + + | Marital Status | Single | + + + | Scientology Affiliation | Unknown | + + + | Race | Unknown | + + + | Ethnic Group | Other Race | + + + Author + + + | Author | [facility] | + + + | Organization | [facility] | + + + | Address | Unknown | + + + | Phone | Unavailable | + + + Support + + +---------+ + | Name | Relationship | Address | Phone | + + +---------+ + | None None | ECON | Unknown | Unavailable | + + +---------+ + Care Team Providers + +------+ + | Care Mammalogy Teacher Name | Role | Phone | [...] [id number] | | | | | | [place], [place] | | | | | | [address] | | | | | | [phone] | | | +--------+ + + + [...] + + | REFERRAL | Referred to [facility] | | [facility] | | | LAB NAME | [facility] [place] | | DEPARTMENT | | | | [...] + + + + | [facility] DEPARTMENT OF | [address] [facility] | [place] [address] | | | PATHOLOGY | [address] | | | + + + + + | [facility] DEPARTMENT OF | [address] [facility] | [place] [address] | | | PATHOLOGY | [address] [...] | | | | | punch biopsy ([id number]) | | | | | | (outside [...] the | | | | | | [facility] | | | | | | ([id number]) show no | | | | | [...] number | | | | | | [id number], with | | | | | | [...] | | | | | bcl-2 staining. [id number] | | | | | | confirms [...] | | | | increase in CD4. Edon | | | | | | and [...] + + + + | [facility] DEPARTMENT OF | [address] | [place] [address] | | | PATHOLOGY | [address] | | | + + + + + | [facility] DEPARTMENT OF | [address] | [place] [address] | | | PATHOLOGY | [address] | | | + + + + + documented in this encounter Visit Diagnoses Not on filedocumented in this encounter
--- OUTSIDE RECORDS SUMMARY | ~2019-05-18 | XMS | Encounter Summary ---
Demographics + + + | Address | [address] | | | [place] [address] | + + + | Home Phone | | + + + | Preferred Language | Unknown | + + + | Marital Status | | + + + | Holiness Affiliation | Unknown | + + + | Race | Unknown | + + + | Ethnic Group | Unknown | + + + Author + + + | Author | [facility] | | | and [place] | + + + | Organization | [facility] | | | and [place] | + + + | Address | Unknown | + + + | Phone | Unavailable | + + + Support + + + + + | Name | Relationship | Address | Phone | + + + + + | Osmin Jackson | ECON | [address] | | | | | [place] [address] | | + + + + + | Hunter Jackson | ECON | [place] | | + + + + + | Wes Jackson | ECON | [place], [place] | | + + + + + | Oziel Jackson | ECON | [place], [place] | | + + + + + Care Team Providers + +------+ + | Care Clinical Staff Rn Name | Role | Phone | + +------+ + | Gunderson, Kellie PA | PCP | | + +------+ + Reason for Visit + + + | Reason | Comments | + + + | Follow-up | Moderate aortic valve insufficency | + + + | Coronary Artery | | | Disease | | + + + Encounter Details +--------+---------+ + + + | Date | Type | Department | Care Team | Description | +--------+---------+ + + + | 04/27/ | Office | [facility] | Yesi, | TIA (Primary Dx); | | 2018 | Visit | CARDIOLOGY [address] | JOSE ALBERTO Linder [address] | Valvular heart | | | | [place], | [place], | disease; Mur[place]; | | | | [place] [address] | [place] [address] | Essential | | | | [phone] | [phone] | hypertension with | | | | | | goal blood pressure | | | | | | less than 130/80; | | | | | | Coronary artery | | | | | | disease involving | | | | | | blackfeet coronary | | | | | | artery of blackfeet | | | | | | heart with unstable | | | | | | angina pectoris | | | | | | ([facility]); Chest pain, | | | | | [...] + + + | Blood Pressure | 120/50 | 04/27/2018 10:36 AM | | | | | PST | | + + + + + | Pulse | 45 | 04/27/2018 10:36 AM | | | | | PST | | + + + + + | Temperature | - | - | | + + + + + | Respiratory Rate | 16 | 04/27/2018 10:36 AM | | | | | PST | | + + + + + | Oxygen Saturation | - | - | | + + + + + | Inhaled Oxygen | - | - | | | Concentration | | | | + + + + + | Weight | 84.5 kg (186 lb 4.6 | 04/27/2018 10:36 AM | | | | oz) | PST | | + + + + + | Height | 165.1 cm (5' 5") | 04/27/2018 10:36 AM | | | | | PST | | + + + + + | Body Mass Index | 31 | 04/27/2018 10:36 AM | | | | | PST | | + + + + + documented in this encounter Patient Instructions Patient Instructions Niyah Key ARNP - 04/27/2018 10:45 AM PST1. Stop Metoprolol 2 5 mg twice a day 2. Start Isosorbide 30 mg once daily 3. Check blood pressure log 4. Follow up in 4 weeks and log chest pain/pressure episodes documented in this encounter Progress Notes Niyah Key ARNP - 04/27/2018 10:45 AM PSTFormatting of this note might be differen t from the original. PATIENT NAME: Soumya Jackson : 1935: AGE: 82 y.o. PRIMARY CARE: FLORA Morgan OUTPATIENT FOLLOW UP VISIT Date of Service: 04/27/2018 HISTORY OF PRESENT ILLNESS: Soumya Jackson is a 82 y.o. female with a history of coronary artery disease post CABG 3 on 11/01/16, moderate aortic valve insufficiency, essential hypertension, osteoarthritis, h ypothyroidism, dyslipidemia, elevated CRP. She is being seen today for follow up coronary a rtery disease, moderate aortic valve insufficiency. She was last seen 10/16/2017 at which time results of the stresses have been discussed with t karl patient. The current medical regimen is effective; continue present plan and medications. Since at time, she has been dealing with anxiety issues as well. She has had a poor energy level. She has not been very active. She enjoys paint and bible study in her spare time. She has had chest discomfort and pressure , she has been having c hest pains almost on a regular daily basis. She has not noticed shortness of breath. She h as not had any lightheadedness or dizziness. She has not noticed palpitations. She has had leg swelling more the last 2 weeks She sleeps on 2 pillows at night, which is her norm, a nd does not wake up at night feeling short of breath. MEDICAL, SURGICAL, AND PERSONAL HISTORY [...] cervical Cervical radiculopathy Coronary artery disease involving blackfeet coronary artery of blackfeet heart with unstable angina pectoris Stress hyperglycemia [...] the AM and 1/2 in the PM L-Lysine HCl 500 MG CAPS Take 500 [...] 10 mg by mouth Daily as needed.) metoprolol tartrate (LOPRESSOR) 25 mg tablet TAKE ONE TABLET BY MOUTH TWICE A DAY 180 t ablet 3 Multiple Vitamins-Minerals (OCUVITE ADULT 50+) CAPS [...] ROS Review of Systems Constitutional: Positive for chills and malaise/fatigue. Negative for fever. HENT: Negative for hearing loss, nosebleeds and tinnitus. Eyes: Negative for blurred vision and double vision. Respiratory: Negative for shortness of breath. Cardiovascular: Positive for chest pain (Chest pressure ) and leg swelling (Worse the last 2 weeks). Negative for palpitations and orthopnea. Gastrointestinal: Negative for abdominal pain, blood in stool, constipation, diarrhea, hear tburn, nausea and vomiting. Genitourinary: Negative for dysuria, frequency and urgency. Musculoskeletal: Positive for back pain, falls (twisted her left ankle 3 weeks ago. She fel l about a month ago ), joint pain, myalgias and neck pain. Skin: Positive for itching. Negative for rash. Neurological: Positive for weakness. Negative for dizziness, tingling, tremors, seizures, l oss of consciousness and headaches. Lightheadedness- No Endo/Heme/Allergies: Bruises/bleeds easily. Psychiatric/Behavioral: Negative for memory loss. The patient is nervous/anxious and has in somnia. OBJECTIVE: PHYSICAL EXAM BP 120/50 | Pulse (!) 45 | Resp 16 | Ht 1.651 m (5' 5") | Wt 84.5 kg (186 lb 4.6 oz) | BMI 31.00 kg/m Physical Exam Constitutional: She is oriented [...] orders placed or performed in visit on 10/16/17 ECG 12 lead Result Value Ref Range INTERPRETATION TEXT Sinus rhythm with premature supraventricular complexes Biatrial enlargement Nonspecific ST-T abnormalities. Abnormal ECG When compared with ECG of 12-SEP-2017 14:16, premature supraventricular complexes are now present Nonspecific T wave abnormality now evident in Inferior leads T wave inversion now evident in Lateral leads Confirmed by CHRISTOPHER SIMMS MD ([id number]) on 10/16/2017 4:36:18 PM LAB RESULTS reviewed during visit today primarily [...] 07/21/2017 PLT 205 11/04/2016 PLTEX 336 07/21/2017 Lab Results Component Value Date TSH 0.85 09/26/2015 TSHEX 1.29 04/24/2016 BNPEX 63 09/18/2016 I reviewed records from [facility] for office visit on 10/2017 whic h is summarized in the HPI. RESULTS- I reviewed reports from [facility]: No results found. Above data and testing is reviewed this visit; testing below is historical data unless othe rwise specified. ASSESSMENT: 1. Coronary artery disease A. Seen at [facility] they had EKG and sent her home stating it was GERD B. [facility]. Sh maegan was schedule for stress test and discharged home. C. Stress Test 05/16/16, is maximal asymptomatic stress test, [facility] very poor function status, achieving maximal heart [...] central AI, no , trace TR, trace AK, normal aorta other than mild calcification at [...] 76 % by Christopher Simms MD. K. Patient has been having chest pains almost on a daily basis. She states torres t the chest pains can happen with her on exertion or chest arrest. She hasn't tried nitrogl ycerin for the chest pains. She states that the pain does not last too long and usually dis appears on its own. She is also found to be bradycardic today. She is in a class II of Ne w York Heart Association functional class.on physical examination there is no sign of flui d overload. The plan will be to discontinue metoprolol since patient did not have an acute myocardial infarction and at that way be able to improve heart rate. She will be started on isosorbide 30 mg once a day. She will keep a diary of her chest pain logs. Patient had a normal stre ss test earlier this year, but because of her history right before she found her coronaries being occluded and she also had a normal stress test. If patient continues having chest dorota n and then an angiogram will be granted to evaluate and stratify coronary artery disease. 2. Essential hypertension with goal blood pressure less than 130/80: A. Today, 04/27/2018, blood pressure is well-controlled. 3. Heart murmur [...] Lipitor after open heart surgery. PLAN: 1. Stop Metoprolol 25 mg twice a day 2. Start Isosorbide 30 mg once daily 3. Check blood pressure log 4. Follow up in 4 weeks and log chest pain/pressure episodes 5. She will follow up in 2-4 weeks for office visit, or sooner with concerns. She will br ing blood pressure log Portions of this chart may have been created with [employer] voice recognition software. Occasi onal wrong-word or [...] [address]REET[place] | | | | | | [address] | | | | | | | | +--------+---------+ + + + | 11/21/ | Office | Cardiology | Yesi, | | | 2019 | Visit | | JOSE ALBERTO Linder [address] | | | | | | [place], | | | | | | [place] [address] | | | | | | [phone] | | | | | | | | +--------+---------+ + + + documented as of this encounter Visit Diagnoses + + | Diagnosis | + + | TIA - Primary Unspecified transient cerebral ischemia | + + | Valvular heart disease Endocarditis, valve unspecified, unspecified cause | + + | Murmur Undiagnosed cardiac murmurs | + + | Essential hypertension with goal blood pressure less than 130/80 | + + | Coronary artery disease involving blackfeet coronary artery of blackfeet heart with unstable | | angina pectoris (HCC) | + + | Chest pain, unspecified type | + + | Hyperlipidemia, mixed Mixed hyperlipidemia | + + documented in this encounter
--- OUTSIDE RECORDS SUMMARY | ~2019-05-18 | XMS | Encounter Summary ---
Demographics + + + | Address | [address] | | | [place] [address] | + + + | Home Phone [...] [facility] | | | and [place] | + + + | Organization | [facility] | | | and [...] | | | | | [place] [address] | | + + + + + | Hunter Jackson | ECON | [place] | | + + + + + | Wes Jackson | ECON | [place], [place] | | + + + + + | Oziel Jackson | ECON | [place], [place] | | + + + + + Care Team Providers + +------+ + | Care Finisher Operator Name | Role | Phone | [...] + + | 09/29/ | Telephone | [facility] | Rodolfo Cruz, | Heart Problem | | 2013 | | MEDICINE [address] [place] [address] | MD [address] | | | | | Preet [place] | [place] | | | | | [place] [address] | [address] | | | | | [phone] | | | +--------+ + + + [...] | | | | | | [place] [address] | | | | | | [phone] | | | | | | | | +--------+---------+ + + + documented as of this encounter Visit Diagnoses Not on filedocumented in this encounter"
--- OUTSIDE RECORDS SUMMARY | ~2019-05-18 | XMS | Encounter Summary ---
Demographics + + + | Address | [address] | | | [place] [address] | + + + | Home Phone [...] | Author | [facility] | | | and [place] | + + + | Organization | [facility] | | [...] | | | | | [place] [address] | | + + + + + | Hunter Jackson | ECON | [place] | | + + + + + | Wes Jackson | ECON | [place], [place] | | + + + + + | Oziel Jackson | ECON | [place], [place] | | + + + + + Care Team Providers + +------+ + | Care Insurance Account Executive Name | Role | Phone | + [...] | | | pain, right | | [address] [place] | | | | | upper | | [place], [place] | | | | | quadrant | | [address] | | | | | Back pain | | Phone: | | | | | Hyperlipidem | | [phone] | | | | | ia Upper GI | | Fax: | | | | | bleeding | | [phone] | | | | | Hypothyroidi | [...] + + | 11/15/ | Surgery | [facility] | Lauri Garrison MD | EGD * IP RM: [id number] * | | 2013 | | MED CTR [facility] INTRA OP | [address], [place] | | | | | [address] | [address] [place] | | | | | [place] | [id number] | | | | | [address] | | | | | | [phone] | | | +--------+---------+ + + + [...] might be different f rom the original. [facility] Service: Hospitalist Physician Discharge Summary Pt: Soumya Jackson AGE/SEX: 78 y.o. female ROOM: [address] [place] [address] PCP: Rodolfo Cruz : 1935 Admit date: [...] upper GI bleed(duodenal ulcers) leading to ac sa[place]attle blood loss anemia. She is status post [...] are the prescriptions that you need to roller picker. You may get these medications from [...] might be different f rom the original. [facility] Service: Hospitalist Progress Note Pt: Soumya Jackson AGE/SEX: 78 y.o. female ROOM: 428/428-01 : 1935 PCP: Rodolfo Cruz ADMIT DATE: 11/14/2013 TODAY'S DATE: 11/16/2013 Hospital Day/Hospital Course: LOS: 2 days 78 years old female past medical history of hypothyroidism, benign hypertension, hyperlipid kirti came to the hospital with weakness due to upper GI bleed(duodenal ulcers) leading to ac sauk-su[place]attle blood loss anemia. She is status post [...] mg/hr (11/16/13 0651) PRN Medications albuterol, [COMPLETED] sdbvakch-jnambvwuni-vyjchhltfu, diphenhydrAMINE, HYDROcodone-acetami nophen, HYDROmorphone, LORazepam, [COMPLETED] meperidine, [...] upper GI bleed(duodenal ulcers) leading to ac sa[place] blood loss anemia. She is status post [...] PM PDT HOSPITALIST PROGRESS NOTE on 11/15/2013 [facility] Pt. Name/Age/: Soumya Jackson 78 y.o. 1935 Med. Record Number: [id number] Primary Care Physician: Rodolfo Cruz Date of [...] -- No results found for this basename: PHART:3,PO2ART:3,HEB3AJT:3,D6GITZMS:3,BEART:[address] 168 hours No [...] Once pantoprazole (PROTONIX) infusion 8 mg/hr (11/15/13 2936) albuterol, diphenhydrAMINE, HYDROcodone-acetaminophen, HYDROmorphone, LORazepam, ondansetr on, ondansetron DVT Prophylaxis Contraindicated CMS Documentation I expect this patient will be hospitalized for greater than 2-midnights and expect the post -hospital plan to be discharge to home or to an adult foster home. Electronically signed by: Peng Godinez MD, 11/15/2013 12:08 [facility] Portions of this chart may have been created withSeeq voice recognition software. Occas ional wrong-word or [...] [place] | | | | | | [id number] | | | | | | | | +--------+---------+ + + + | 11/21/ | Office | Cardiology | Yesi, | | | 2019 | Visit | | JOSE ALBERTO Linder [address] | | | | | | [place], | | | | | | [place] [address] | | | | | | [phone] | | | | | | | [...] + + + | UNIT # | [id number] | | [facility] | | | | [...] St | [place] | | | [facility] | | [address] | | | - BLOOD BANK | [...] + + + | UNIT # | [id number] | | [facility] | | | | [...] ST. | [address] | [place] | | | [facility] | | [address] | | | - BLOOD BANK | [...] + | [facility] | [address] | [place], [place] | [phone] | | [facility] | | [address] | | | - LABORATORY | | | | + + + + + | [facility] | [address] | [place], [place] | | | [facility] | | [address] | | | - LABORATORY | | [...] 7 | 7 - 18 mg/dL | [facility] | | | | | | [facility] | | | | | | MEDICAL | | | | | | CENTER - | | | | | | LABORATORY | | + + + + + + | Creatinine | 0.74 | 0.60 - 1.30 | [facility] | | | | | mg/dL | [facility] | | | | | | MEDICAL | | | | | | CENTER - | | | | | | LABORATORY | | + + + + + + | eGFR if not | >60Comment: GLOMERULAR | >=60 | [facility] | | | | FILTRATION | mL/min/1.73m2 | [facility] | | | BHUTANESE | RATE,ESTIMATED | | MEDICAL | | | | mL/min/1.24n3Vxmp than | | CENTER - | | [...] + | [facility] | [address] | [place] | [phone] | | [facility] | | [address] | | | - LABORATORY | | | | + + + + + | [facility] | [address] | [place] | | | [facility] | | [address] | | | - LABORATORY | | [...] [address] | [place] | [phone] | | [facility] | | [address] | | | - LABORATORY | | | | + + + + + | [facility] | [address] | [place] | | | [facility] | | [address] | | | - LABORATORY | | [...] | | | | | | [facility] | | | | | | MEDICAL [...] [address] | [place] | [phone] | | [facility] | | [address] | | | - LABORATORY | | | | + + + + + | [facility] | [address] | [place] | | | [facility] | | [address] | | | - LABORATORY | | [...] + | [facility] | [address] | [place] | [phone] | | [facility] | | [address] | | | - LABORATORY | | | | + + + + + | [facility] | [address] | [place] | | | [facility] | | [address] | | | - LABORATORY | | [...] + | [facility] | [address] | [place], [place] | [phone] | | [facility] | | [address] | | | - LABORATORY | | | | + + + + + | [facility] | [address] | [place], [place] | | | [facility] | | [address] | | | - LABORATORY | | [...] 10 | 7 - 18 mg/dL | [facility] | | | | | | [facility] | | | | | | MEDICAL | | | | | | CENTER - | | | | | | LABORATORY | | + + + + + + | Creatinine | 0.60 | 0.60 - 1.30 | [facility] | | | | | mg/dL | [facility] | | | | | | MEDICAL | | | | | | CENTER - | | | | | | LABORATORY | | + + + + + + | eGFR if not | >60Comment: GLOMERULAR | >=60 | [facility] | | | | FILTRATION | mL/min/1.73m2 | [facility] | | | BHUTANESE | RATE,ESTIMATED | | MEDICAL | | | | mL/min/1.29d7Uvvb than | | CENTER - | | [...] + | [facility] | [address] | [place] | [phone] | | [facility] | | [address] | | | - LABORATORY | | | | + + + + + | [facility] | [address] | [place] | | | [facility] | | [address] | | | - LABORATORY | | [...] + | [facility] | [address] | [place] | [phone] | | [facility] | | [address] | | | - LABORATORY | | | | + + + + + | [facility] | [address] | [place] | | | [facility] | | [address] | | | - LABORATORY | | [...] + | [facility] | [address] | [place], [place] | [phone] | | [facility] | | [address] | | | - LABORATORY | | | | + + + + + | [facility] | [address] | [place], [place] | | | [facility] | | [address] | | | - LABORATORY | | | | + + + + + EGD (11/15/2013 2:09 PM PDT) + + | Specimen | + + | | + + + + --+ | Narrative | Performed A t | + + --+ | | [facility] | | GastroenterologyPatient Name: Soumya Vazcedure Date: 11/15/2013 2:09 | [facility]OVATION | | PMMRN: [id number] #: [id number] of : 8Admit | | | Type: InpatientAge: 78[facility]: [facility]Gender: FemaleNote Status: | | | FinalizedAttending MD: Lauri Garrison, [facility]ITALrocedure: Upper | | | GI endoscopyIndications: Acute [...] the nurse | | | and the waste minimization technician in the 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 Mental Status [...] On: 11/15/2013 2:09 PM | | | [facility] | | | [place] [address] | | | - Normal duodenal bulb, [...] On: 11/15/2013 2:09 PM | | | [facility] [place], [place] | | | [address] | | + + --+ + + [...] [address] | [place] | [phone] | | [facility] | | [address] | | | - LABORATORY | | | | + + + + + | [facility] | [address] | [place] | | | [facility] | | [address] | | | - LABORATORY | | [...] mL/min/1.73m2 | [facility] | | | BHUTANESE | RATE,ESTIMATED | | MEDICAL | | | | mL/min/1.03u0Ibwc than | | CENTER - | | [...] + | [facility] | [address] | [place] | [phone] | | [facility] | | [address] | | | - LABORATORY | | | | + + + + + | [facility] | [address] | [place] | | | [facility] | | [address] | | | - LABORATORY | | [...] + | [facility] | [address] | [place], [place] | [phone] | | [facility] | | [address] | | | - LABORATORY | | | | + + + + + | [facility] | [address] | [place], [place] | | | [facility] | | [address] | | | - LABORATORY | | [...] + | [facility] | [address] | [place] | [phone] | | [facility] | | [address] | | | - LABORATORY | | | | + + + + + | [facility] | [address] | [place], [place] | | | [facility] | | [address] | | | - LABORATORY | | [...] + | [facility] | [address] | [place] | | | [facility] | | [address] | | | - BLOOD BANK | [...] mL/min/1.73m2 | [facility] | | | BHUTANESE | RATE,ESTIMATED | | MEDICAL | | | | mL/min/1.80c6Weqd than | | CENTER - | | [...] + | [facility] | [address] | [place], [place] | [phone] | | [facility] | | [address] | | | - LABORATORY | | | | + + + + + | [facility] | [address] | [place], [place] | | | [facility] | | [address] | | | - LABORATORY | | [...] + | [facility] | [address] | [place] | [phone] | | [facility] | | [address] | | | - LABORATORY | | | | + + + + + | [facility] | [address] | [place], [place] | | | [facility] | | [address] | | | - LABORATORY | | [...] -------- | | | ---- 11/14/2013 10:22 [place] | | | [facility] Emergency black stool; 11/03/2013 | | | 07:39 [facility] Emergency Back | | | Pain; [...] type, unspecified; 09/20/2013 00:12 | | | [facility] Emergency Thoracic or | | | lumbosacral neuritis or radiculitis, unspecified; | | | | | | Flank Pain; | | | | | | back/side pain; 09/15/2013 09:18 [facility] | | | [place] [facility] Sprain of thoracic; | | | | | | Upper Back Pain; | | | | | | Back Pain; VISIT COUNT (1 YR.) Visits Medicaid [place] Dx | | | Location ------ --------- 4 0 | | | [facility] 4 | | | 0 Total Note: Visits indicate total | | | known visits. Medicaid [place] D[place] are the number of primary diagnoses on | | | the [facility]'s non-emergent dx list. | | [...]
--- OUTSIDE RECORDS SUMMARY | ~2019-05-18 | XMS | Encounter Summary ---
Demographics + + + | Address | [address] | | | [place] [address] | + + + | Home Phone [...] | [facility] | | | and [place] | + + + | Organization | [facility] | | | and [place] | + + + | Address | Unknown | + + + | Phone | Unavailable | + + + Support + + + + + | Name | Relationship | Address | Phone | + + + + + | Osmin Jackson | ECON | [address] | | | | | [place] [address] | | + + + + + | Hunter Jackson | ECON | [place] | | + + + + + | Wes Jackson | ECON | [place], [place] | | + + + + + | Oziel Jackson | ECON | [place], [place] | | + + + + + Care Team Providers + +------+ + | Care Wire Preparation Worker Name | Role | Phone | [...] | Specialty | Podiatry | Diagnoses | Nancy, | Bakari, | | | Services | | Ankle pain | Rodolfo Reilly MD | Brennan Desir DPM | | | Required | | | [address] | [address] | | | | | | [place] | [address] | | | | | | [place] | [place] | | | | | | [address] | [address] Phone: | | | | | | Phone: | [phone] | | | | | | [phone] | Fax: | | | | | | Fax: | [phone] | | | | | | [phone] | | +--------+ + + + + + Reason for Visit + + + | Reason | Comments | + + + | Follow-up | | + + + Encounter Details +--------+---------+ + + + | Date | Type | Department | Care Team | Description | +--------+---------+ + + + | 09/03/ | Office | [facility] | Rodolfo Cruz, | Hypertension | | 2013 | Visit | [facility] [place] | [address] | (Primary Dx); Right | | | | [address] | [place] | ankle pain; | | | | [place] | [address] | Gastroenteritis; | | | | [address] | | Vertigo | | | | [phone] | | | +--------+---------+ + + + [...] + + + | Blood Pressure | 140/68 | 09/03/2012 2:45 PM | | | | | PDT | | + + + + + | Pulse | 70 | 09/03/2012 2:45 PM | | | | | PDT | | + + + + + | Temperature | - | - | | + + + + + | Respiratory Rate | 20 | 09/03/2012 2:45 PM | | | | | PDT | | + + + + + | Oxygen Saturation | 96% | 09/03/2012 2:45 PM | | | | | PDT | | + + + + + | Inhaled Oxygen | - | - | | | Concentration | | | | + + + + + | Weight | 90.7 kg (200 lb) | 09/03/2012 2:45 PM | | | | | PDT | | + + + + + | Height | 167.6 cm (5' 6") | 09/03/2012 2:45 PM | | | | | PDT | | + + + + + | Body Mass Index | 32.28 | 09/03/2012 2:45 PM | | | | | PDT | | + + + + + documented in this encounter Progress Rodolfo Huff MD - 09/03/2012 2:51 PM PDTFormatting of this note might be different f rom the original. Subjective: Patient ID: Soumya Jackson is a 77 y.o. female. HPI Right with a intermittent shooting pain off and on for a long time. She would like to get custom othotics. The pain comes on when she is walking. Loose BMs for the last 3 days, Some abd bloating and pain. There is no blood or fever, I t is a little better today, There has been no recent FT Camping or abx use. BPV, Continues. She would like to Go to PT for Lolita maneuvers. DJD still aches. Last injection did not help. She is taking aspirin and diclofenac. Review of Systems Constitutional: no fever, No appetite change, no fatigue. HEENT: Neg ear pain, No nosebleeds,no rhinorrhea,no trouble swallowing and some sinus congestion. Eyes: Neg for pain and no visual disturbance. Respiratory: Neg for cough, no chest tightness, no shortness of breath no wheezing. Cardiovascular: Neg for chest pain, no palpitations and no leg swelling. Gastrointestinal: Neg for nausea,no vomiting,some diarrhea,no constipation some abdominal distention. some Belly pain, no black and no bloody stools, no excessive gas Genitourinary: Negative for urgency, no frequency, no decreased urine volume no difficulty urinating. No Bloody urine Musculoskeletal: Neg or myalgias, no back pain, no joint swelling and No art hralgias. some joint pain Skin: Neg for color [...] /s M Abd S,NT,ND,BS+ Ext, no CCor trace edema Neuro Non-focal Lymph, no cervical, axillary, inguinal adenopathy Musculoskeletal, no gross deformity or loss or range of motion Skin, no gross lesions Assessment: 1. Hypertension furosemide (LASIX) 20 mg tablet, metoprolol succinate (TOPROL XL) 50 mg 24 hr tablet, diclofenac (VOLTAREN) 75 mg EC tablet, Ambulatory referral to Podiatry 2. Right ankle pain 3. Gastroenteritis 4. Vertigo Plan: Refer to podiatry. Labs. She otherwise looks good. She will let her know if her symptoms feel worse. documented in this encounter Plan of Treatment [...] | | | | | | [place] [address] | | | | | | [phone] | | | | | | | | +--------+---------+ + + + + + +--------+ + + | Name | Type | Priori | Associated Diagnoses | Order Schedule | | | | ty | | | + + +--------+ + + | Ambulatory referral | Outpatient | Routin | Hypertension | Ordered: 09/03/2012 | | to Podiatry | Referral | e | | | + + +--------+ + + documented as of this encounter Results Comprehensive Metabolic Panel (09/03/2012 3:43 PM PDT) [...] 3.6 | 3.2 - 5.0 gm/dL | [facility] | | | | | [facility] | | | | | | [facility]ICAL | | | | | | CENTER - | | | | | | LABORATORY | | + + + + + + | BUN | 19 (H) | 7 - 18 mg/dL | [facility] [...] 137 | 136 - 149 mEq/L | [facility] | | | | | | [facility] | | | | | | MEDICAL | | | | | | CENTER - | | | | | | LABORATORY | | + + + + + + | K | 3.5 | 3.5 - 5.1 mEq/l | [facility] | | | | | [...] + | [facility] | [address] | [place], [place] | [phone] | | [facility] | | [address] | | | - LABORATORY | | | | + + + + + | [facility] | [address] | [place], [place] | | | [facility] | | [address] | | | - LABORATORY | | [...] 0.1 | 0.0 - 0.1 K/uL | [facility] | | | Basophils | | | [facility] | | | | | [...] | [address] | [place] | [phone] | | [facility] | | [address] | | | - LABORATORY | | | | + + + + + | [facility] | [address] | [place] | | | [facility] | | [address] | | | - LABORATORY | | [...] | | [facility] | | | [facility] | | | | | | MEDICAL | | | | | | CENTER - | | | | | | LABORATORY | | + + + + + + | Color, | YELLOW | | [facility] | | | Urine | | | [facility] | | [...] - 1.030 | [facility] | | | [place] | | | [facility] | | [...] + | [facility] | [address] | [place] | [phone] | | [facility] | | [address] | | | - LABORATORY | | | | + + + + + | [facility] | [address] | [place], [place] | | | [facility] | | [address] | | | - LABORATORY | | | | + + + + + documented in this encounter Visit Diagnoses + + | Diagnosis | + + | Hypertension - Primary Unspecified essential hypertension | + + | Right ankle pain Pain in joint, ankle and foot | + + | Gastroenteritis Other and unspecified noninfectious gastroenteritis and colitis | + + | Vertigo Dizziness and giddiness | + + documented in this encounter
--- OUTSIDE RECORDS SUMMARY | ~2019-05-18 | XMS | Encounter Summary ---
Demographics + + + | Address | [address] | | | [place] [address] | + + + | Home Phone [...] | Author | [facility] | | | and [place] | + + + | Organization | [facility] | | | and [place] | + + + | Address | Unknown | + + + | Phone | Unavailable | + + + Support + + + + + | Name | Relationship | Address | Phone | + + + + + | sOmin Jackson | ECON | [address] | | | | | [place] [address] | | + + + + + | Hunter Jackson | ECON | [place] | | + + + + + | Wes Jackson | ECON | [place], [place] | | + + + + + | Oziel Jackson | ECON | [place], [place] | | + + + + + Care Team Providers + +------+ + | Care Club Lounge Attendant Name | Role | Phone | [...] POPLAR | radiculopathy | | | | [place], | [place], [place] | (Primary Dx); DDD | | | | [place] [address] | [address] | (degenerative disc | | | | [phone] | | disease), cervical; | | | [...] lidocaine patches. 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 Jensen. She underwent a triple-bypass surgery in [facility] of this year so treatments for her [...] has no apparent deficits with short or intermission coordinator memory. She has appropriate fund of knowledge [...] with the patient today during the visit. [facility] MRI shows no disc bulge or [...] scheduled for this in the near f [facility]. 2. Medications have been reviewed at today's [...] in this documentatio n, as scribed by ALEXANDREA León in my presence, and it is [...] [address] | | | | | | [place], | | | | | | [place] [address] | | | | | | [phone] | | | | | | | [...] + + | Performing | Address | City/State/[facility] | Phone Number | | Organization [...]
--- OUTSIDE RECORDS SUMMARY | ~2019-05-18 | XMS | Encounter Summary ---
Demographics + + + | Address | [address] | | | [place] [address] | + + + | Home Phone [...] Author | [facility] | | | and [place] | + + + | Organization | [facility] | | [...] | | | | | [place] [address] | | + + + + + | Hunter Jackson | ECON | [place] | | + + + + + | Wes Jackson | ECON | [place], [place] | | + + + + + | Oziel Jackson | ECON | [place], [place] | | + + + + + Care Team Providers + +------+ + | Care Bankman Name | Role | Phone | + +------+ + | Rodolfo Cruz MD | PCP | | + +------+ + Encounter Details +--------+ + + + + | Date | Type | Department | Care Team | Description | +--------+ + + + + | 01/03/ | Hospital | [facility] | Rodolfo Cruz, | Urticaria, chronic | | 2016 | Encounter | [facility] | MD [address] | | | | | [address] | [place], [place] | | | | | [place] | [address] | | | | | [address] | | | | | | [phone] | | | +--------+ + + + [...] tablet by | 90 | 0 | 11/20/19 | | | (LUNESTA) 2 MG TABS | mouth nightly. | tablet | | 16 | 6 | + + + +---------+ [...] + + + +---------+ + + | [place] 3 1000 MG | Take by mouth. [...] encounter Progress Notes Rodolfo Cruz MD - 01/04/2016 11:59 PM PDT Quick Note: Ok for ma [...] [place] | | | | | | [address] | | | | | | | | +--------+---------+ + + + | 11/21/ | Office | Cardiology | Yesi, | | | 2019 | Visit | | JOSE ALBERTO Linder [address] | | | | | | [place] | | | | | | [place] [address] | | | | | | [phone] | | | | | | | | +--------+---------+ + + + documented as of this encounter Procedures + +--------+ + + + | Procedure Name | Priori | Date/Time | Associated Diagnosis | Comments | | | ty | | | | + +--------+ + + + | ARON SCREEN, QUANT, | Routin | 01/04/2016 | Urticaria, chronic | Results for this | | REFLEX | e | 12:36 PM | | procedure are in the | | | | PDT | | results section. | + +--------+ + + + | EXTRA GOLD TOP TUBE | Routin | 01/04/2016 | Urticaria, chronic | Results for this | | | e | 12:36 PM | | procedure are in the | | | | PDT | | results section. | + +--------+ + + + | DNA DOUBLE-STRANDED | Routin | 01/04/2016 | Urticaria, chronic | Results for this | | AB, IGG | e | 12:36 PM | | procedure are in the | | | | PDT | | results section. | + +--------+ + + + | CBC WITH | Routin | 01/04/2016 | Urticaria, chronic | Results for this | | DIFFERENTIAL | e | 12:36 PM | | procedure are in the | | | | PDT | | results section. | + +--------+ + + + documented in this encounter Results Extra Gold Top Tube (01/04/2016 12:36 PM PDT) + +-------+ + + + | Component | Value | Ref Range | Performed | Pathologist | | | | | At | Signature | + +-------+ + + + | Extra Gold | Done | | [facility] | | | Top Tube | | | [facility] | | [...] [address] | [place] | [phone] | | [facility] | | [address] | | | - LABORATORY | | | | + + + + + Viral Franco Reflex (01/04/2016 12:36 PM PDT) + + + + + + | Component | Value | Ref Range | Performed | Pathologist | | | | | At | Signature | + + + + + + | ARON Screen, | NegativeComment: Testing | NEG | REFERENCE | | | Qual | Performed: [facility], [address] | | [facility] | | | | [address], [place] | | | | | | [address] | | | | + + + + + + | Interpretat | 0.3 | <1.0 U | REFERENCE | | | ion-ARON | | | [facility] | | + + + + + + + + | Specimen | + + | Blood specimen | | (specimen) | + + + + + + + | Performing | Address | City/State/Zipcode | Phone Number | | Organization | | | | + + + + + | [facility] | [address] | [place] [address] | [phone] | + + + + + DNA Double-Stranded Ab, IgG (01/04/2016 12:36 PM PDT) + + + + + + | Component | Value | Ref Range | Performed | Pathologist | | | | | At | Signature | + + + + + + | dsDNA | <1Comment: Negative: | <5 IU/mL | REFERENCE | | | Autoantibod | Equal to or | | [facility] | | | y | <4Testing Performed: | | | | | | [facility], [address], | | | | | | [place] [address] | | | | + + + + + + + + | Specimen | + + | Blood specimen | | (specimen) | + + + + + + + | Performing | Address | City/State/Zipcode | Phone Number | | Organization | | | | + + + + + | [facility] | [address] | [place] [address] | [phone] | + + + + + CBC with Differential (01/04/2016 12:36 PM PDT) + + + + + + | Component | Value | Ref Range | Performed | Pathologist | | | | | At | Signature | + + + + + + | WBC | 9.9 | 4.0 - 11.0 K/uL | [facility] | | | | | | [facility] | | | | | | MEDICAL | | | | | | CENTER - | | | | | | LABORATORY | | + + + + + + | RBC | 4.27 | 3.70 - 5.20 | [facility] | | | | | M/uL | [facility] | | | | | | MEDICAL | | | | | | CENTER - | | | | | | LABORATORY | | + + + + + + | Hemoglobin | 14.6 | 11.5 - 16.0 | [facility] | | | | | g/dL | . [facility] | | | | | | MEDICAL | | | | | | CENTER - | | | | | | LABORATORY | | + + + + + + | Hematocrit | 43.1 | 34.0 - 47.0 % | [facility] | | | | | | [facility] | | | | | | MEDICAL | | | | | | CENTER - | | | | | | LABORATORY | | + + + + + + | MCV | 101.1 (H) | 83.0 - 101.0 fL | [...] + + | RDW-CV | 13.2 | <15.0 % | [facility] | | | | | | [facility] | | | | | | MEDICAL | | | | | | CENTER - | | | | | | LABORATORY | | + + + + + + | Platelet | 367 | 140 - 440 K/uL | [facility] [...] + + + + | % | 74.5 | 45.0 - 82.0 % | [facility] | | | Neutrophils | | | [facility] | | | | | | MEDICAL | | | | | | CENTER - | | | | | | LABORATORY | | + + + + + + | % | 16.4 (L) | 20.0 - 45.0 % | [...] | % | 1.6 | 0.0 - 5.0 % | [facility] [...] + + + + | Absolute | 1.60 | 0.60 - 3.20 | [facility] | [address] | [place] | [phone] | | [facility] | | [address] | | | - LABORATORY | | | | + + + + + documented in this encounter Visit Diagnoses + + | Diagnosis | + + | Urticaria, chronic Other specified urticaria | + + documented in this encounter"
--- OUTSIDE RECORDS SUMMARY | ~2019-05-18 | XMS | Encounter Summary ---
Demographics + + + | Address | [address] | | | [place] [address] | + + + | Home Phone [...] + | Author | [facility] | | | and [place] | + + + | Organization | [facility] | | | and [place] | + + + | Address | Unknown | + + + | Phone | Unavailable | + + + Support + + + + + | Name | Relationship | Address | Phone | + + + + + | Osmin Jackson | ECON | [address] | | | | | [place] [address] | | + + + + + | Hunter Jackson | ECON | [place] | | + + + + + | Wes Jackson | ECON | [place], [place] | | + + + + + | Oziel Jackson | ECON | [place], [place] | | + + + + + Care Team Providers + +------+ + | Care Bulk Driver Name | Role | Phone | + +------+ + | Kellie Gunderson | PCP | | + +------+ + Encounter Details +--------+ + + + + | Date | Type | Department | Care Team | Description | +--------+ + + + + | 11/05/ | Telephone | [facility] | Rodolfo Cruz, | | | 2013 | | MEDICINE [address] [place] [address] | MD [address] | | | | | [facility] | [place], [place] | | | | | [place] [address] | [id number] | | | | | [phone] | | | +--------+ + + + [...] STREETER | | | | | | [id number] | | | | | | | | +--------+---------+ + + + | 11/21/ | Office | Cardiology | Yesi, | | | 2019 | Visit | | JOSE ALBERTO Linder [address] | | | | | | [place], | | | | | | [place] [address] | | | | | | [phone] | | | | | | | | +--------+---------+ + + + documented as of this encounter Visit Diagnoses Not on filedocumented in this encounter"
--- OUTSIDE RECORDS SUMMARY | ~2019-05-18 | XMS | Encounter Summary ---
Demographics + + + | Address | [address] | | | [place] [address] | + + + | Home Phone | | + + + | Preferred Language | Unknown | + + + | Marital Status | | + + + | Zoroastrian Affiliation | Unknown | + + + | Race | Unknown | + + + | Ethnic Group | Unknown | + + + Author + + + | Author | [facility] | | | and [place] | + + + | Organization | [facility] | | | and [place] | + + + | Address | Unknown | + + + | Phone | Unavailable | + + + Support + + + + + | Name | Relationship | Address | Phone | + + + + + | Osmin Jackson | ECON | [address] | | | | | [place] [address] | | + + + + + | Hunter Jackson | ECON | [place] | | + + + + + | Wes Jackson | ECON | [place], [place] | | + + + + + | Oziel Jackson | ECON | [place], [place] | | + + + + + Care Team Providers + +------+ + | Care Home Fire Alarm Installer Name | Role | Phone | [...] + + | 10/14/ | Telephone | [facility] | Yesi, | Other (questions | | 2018 | | CARDIOLOGY [address] | JOSE ALBERTO Linder [address] | about test) | | | | [place], | [place], | | | | | [place] [address] | [place] [address] | | | | | [phone] | [phone] | | | | | | | [...] STREETER | | | | | | [address] | | | | | | | | +--------+---------+ + + + | 11/21/ | Office | Cardiology | Yesi, | | | 2019 | Visit | | JOSE ALBERTO [address] | | | | | | [place] | | | | | | [place] [address] | | | | | | [phone] | | | | | | | | +--------+---------+ + + + documented as of this encounter Visit Diagnoses Not on filedocumented in this encounter"
--- OUTSIDE RECORDS SUMMARY | ~2019-05-18 | XMS | Encounter Summary ---
Demographics + + + | Address | [address] | | | [place] [address] | + + + | Home Phone [...] + | Author | [facility] | | | and [place] | + + + | Organization | [facility] | | | [...] | | | | | [place] [address] | | + + + + + | Hunter Jackson | ECON | [place], [place] | | + + + + + | Wes Jackson | ECON | [place], [place] | | + + + + + | Oziel Jackson | ECON | [place], [place] | | + + + + + Care Team Providers + +------+ + | Care Promotions Specialist Name | Role | Phone | [...] + + | 06/18/ | Telephone | [facility] [place] | Yesi, | Appointment | | 2016 | | [address] | JOSE ALBERTO Linder [address] | | | | | [place], | [place], | | | | | [place] [address] | [place] [address] | | | | | [phone] | [phone] | | | | | | | [...] STREETER | | | | | | [address] | | | | | | | | +--------+---------+ + + + | 11/21/ | Office | Cardiology | Yesi | | | 2019 | Visit | | JOSE ALBERTO Linder [address] | | | | | | [place] | | | | | | [place] [address] | | | | | | [phone] | | | | | | | | +--------+---------+ + + + documented as of this encounter Visit Diagnoses Not on filedocumented in this encounter"
--- OUTSIDE RECORDS SUMMARY | ~2019-05-18 | XMS | Encounter Summary ---
Demographics + + + | Address | [address] | | | [place] [address] | + + + | Home Phone | | + + + | Preferred Language | Unknown | + + + | Marital Status | | + + + | Zoroastrianism Affiliation | Unknown | + + + | Race | Unknown | + + + | Ethnic Group | Unknown | + + + Author + + + | Author | [facility] | | | and [place] | + + + | Organization | 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
--- OUTSIDE RECORDS SUMMARY | ~2019-05-18 | XMS | Encounter Summary ---
Demographics + + + | Address | [address] | | | [place] [address] | + + + | Home Phone [...] Author | [facility] | | | and [place] | + + + | Organization | [facility] | | | and [place] | + + + | Address | Unknown | + + + | Phone | Unavailable | + + + Support + + + + + | Name | Relationship | Address | Phone | + + + + + | Osmin Jackson | ECON | [address] | | | | | [place] [address] | | + + + + + | Hunter Jackson | ECON | [place] | | + + + + + | Wes Jackson | ECON | [place], [place] | | + + + + + | Oziel Jackson | ECON | [place], [place] | | + + + + + Care Team Providers + +------+ + | Care Fire Extinguisher Inspector Name | Role | Phone | [...] | 02/11/ | Refill | [facility] | Rodolfo Cruz, | Medication Refill | | 2016 | | MEDICINE [address] | [address] | | | | | [place] | [place] [address] | | | | | [place] [address] | [address] | | | | | [phone] | | | +--------+--------+ + + + [...] | | | | | | [place] [address] | | | | | | [phone] | | | | | | | | +--------+---------+ + + + documented as of this encounter Visit Diagnoses Not on filedocumented in this encounter"
--- OUTSIDE RECORDS SUMMARY | ~2019-05-18 | XMS | Encounter Summary ---
Demographics + + + | Address | [address] | | | [place] [address] | + + + | Home Phone [...] | Author | [facility] | | | and [place] | + + + | Organization | [facility] | [...] | | | | | [place] [address] | | + + + + + | Hunter Jackson | ECON | [place], [place] | | + + + + + | Wes Jackson | ECON | [place], [place] | | + + + + + | Oziel Jackson | ECON | [place], [place] | | + + + + + Care Team Providers + +------+ + | Care Meat Packer Name | Role | Phone | [...] Nuclear | | | | | | Karval, | Medicine | | | | | Hyperlipidem | Niyah, VENEREAL DISEASE CONTROL HEAD | [address] | | | | | ia, mixed | [address] | [place], | | | | | Chest pain, | [place] | [place] | | | | | unspecified | [place], | [address] | | | | | type | [place] | Phone: | | | | | Procedures | [address] | [phone] | | | | | [place] Nuclear | Phone: | Fax: | | | | | Stress Test | [phone] | [phone] | | | | | (Vasodilator | Fax: | | | | | | ) CHG | [phone] | | | | | | MYOCARDIAL | | | | | | | SPECT | | | | | | | MULTIPLE | | | | | | | STUDIES AK | | | | | | | CV STRS TST | | | | | | | XERS&/OR RX | | | | | | | CONT ECG W/O | | | | | | | I&R AK | | | | | | | [...] | Essential | Yesi, | [address] | | | | | hypertension | JOSE ALBERTO Harry | [place], | | | | | with goal | [address] | [place] | | | | | blood | [place] | [address] | | | | | pressure | [place], | Phone: | | | | | less than | [place] | [phone] | | | | | 130/80 | [address] | Fax: | | | | | Murmur | Phone: | [phone] | | | | | Procedures | [phone] | | | | | | ECHO | Fax: | | | | | | Complete [place] | [phone] | | | | | | ECHO HEART | | | | | | | XTHORACIC,CO | | | | | | | MPLETE W | | | | | | | DOPPLER [place] | | | | | | | [...] | | | Procedures | EULOGIO | [address] | | | | | FUP - | [address] | [place], | | | | | ESTABLISHED | [place], | [place] [address] | | | | | SUW PT | [place] [address] | Phone: | | | | | | Phone: | [phone] | | | | | | [phone] | Fax: | | | | | | Fax: | [phone] | | | | | | [phone] | | +--------+--------+ + + + + Encounter Details +--------+---------+ + + + | Date | Type | Department | Care Team | Description | +--------+---------+ + + + | 07/03/ | Office | [facility] | Yesi, | Essential | | 2017 | Visit | CARDIOLOGY [address] | JOSE ALBERTO Harry [address] | hypertension with | | | | [place], | [place], | goal blood pressure | | | | [place] [address] | [place] [address] | less than 130/80 | | | | [phone] | [phone] | (Primary Dx); | | | | [...] been very active. She was going to [employer] 3 times a week but stopped the last 2 months . She has had exertional chest disomfort.This also happens at rest and almost daily. It las t a couple of minutes at the time. She has had shortness of breath with exertion of walkin g or even trying to sign at [employer]. She has not had any lightheadedness or [...] o n the RaNITidine HCl (RANITIDINE ACID STOCKROOM ATTENDANT PO) Take 1 tablet by mouth Daily. [...] RESULTS reviewed during visit today primarily from [facility]: LIPID Lab Results Component Value Date [...] PLTEX 381 05/08/2016 I reviewed records from [facility] for emergency department visit on 04/12 which [...] A. Seen in the emergency room at [facility] for chest pain. She was schedule [...] failure.She is in a class II of [place] [employer] functional class. There is no [...] this chart may have been created with [employer] voice recognition software. Occasi onal wrong-word or [...] | | | | | | [place] [address] | | | | | | [phone] | | | | | | | [...] study with a normal left ventricular | [facility] | | size and wall thickness. Preserved left ventricular systolic | [facility] | | function. LVEF by gated SPECT 75%. Signed by: Christopher | - IMAGING | | MD Mendez [facility] 07/16/2016, 13:12 | | + + + + + + | Narrative | Performed At | + + + | NUCLEAR MEDICINE STRESS TEST REPORT | [facility] | | Patient Name: Jaclyn Jackson Study Date: 07/16/2016 Primary Care | [facility] | | Provider: FLORA Morgan : 1935 [...] [address] | [address] | [place] | [phone] | | [facility] | | [address] | | | - IMAGING | | [...] Room Number DEION Patient Number | M [facility] | | [id number] Date of Study 07/16/2016 Visit Number | - IMAGING | | [id number] Referring | | | Physician YG HARRY Number Date of 1935 | | | Car Salter JACEYWALKERGold BEVERLEY SALLY Age | | | 80 year(s) Interpreting MENDEZ WHITE | | | Spanish Tutor | | | CHRISTOPHER ARECHIGA MD Gender [...] | 50.56 ml | | | EF Ldvpvztxv80% Left Ventricle Diastolic Dimension: 5.07 | | [...] Volume: 50.56 ml | | | EF Clfackyxh42% | | | | | | Left [...] Room Number DEION | | Patient Number [id number] Date of Study 07/16/2016 Visit Number | | [id number] Referring Physician YG HARRY Number | | Date of 1935 [address] BAUDILIO BEVERLEY [facility] Age | | 80 year(s) Interpreting MENDEZ WHITE | | Spanish Tutor CHRISTOPHER ARECHIGA MD Gender Female | | [...] LA Volume: 50.56 ml | | EF Tberzmnuc07% Left Ventricle Diastolic Dimension: 5.07 cm | [...] LA Volume: 50.56 ml | | EF Slltqwyks97% | | | | Left Ventricle | [...] + | [facility] | [address] | [place] | [phone] | | [facility] | | [address] | | | - IMAGING | | [...] MD | | | | | | ([id number]) on 07/04/2016 | | | | | [...]
--- OUTSIDE RECORDS SUMMARY | ~2019-05-18 | XMS | Encounter Summary ---
Demographics + + + | Address | [address] | | | [place] [address] | + + + | Home Phone | | + + + | Preferred Language | Unknown | + + + | Marital Status | | + + + | Uatsdin Affiliation | Unknown | + + + | Race | Unknown | + + + | Ethnic Group | Unknown | + + + Author + + + | Author | [facility] | | | and [place]ana | + + + | Organization | [facility] | [...] | | | | | [place] [address] | | + + + + + | Hunter Jackson | ECON | [place] | | + + + + + | Wes Jackson | ECON | [place], [place] | | + + + + + | Oziel Jackson | ECON | [place], [place] | | + + + + + Care Team Providers + +------+ + | Care Exhaust Emissions Automotive Technician Name | Role | Phone | + +------+ + | Rodolfo Cruz MD | PCP | | + +------+ + Encounter Details +--------+ + + + + | Date | Type | Department | Care Team | Description | +--------+ + + + + | 06/02/ | Hospital | [facility] | Rodolfo Cruz, | Osteoarthritis | | 2012 - | Encounter | MED CTR LABORATORY | MD Dos Santos [address] | | | | | [address] [place] | [place] [address] | | | 06/04/ | | [place] | [address] | | | 2012 | | [address] | | | | | | [phone] | | | +--------+ + + + [...] STREETER | | | | | | [address] | | | | | | | | +--------+---------+ + + + | 11/21/ | Office | Cardiology | Yesi, | | | 2019 | Visit | | JOSE ALBERTO Linder [address] | | | | | | [place] | | | | | | [place] [address] | | | | | | [phone] | | | | | | | [...] + | [facility] | [address] | [place], [place] | [phone] | | [facility] | | [address] | | | - LABORATORY | | | | + + + + + | [facility] | [address] | [place], [place] | | | [facility] | | [address] | | | - LABORATORY | | [...] [address] | [place] | [phone] | | [facility] | | [address] | | | - LABORATORY | | | | + + + + + | [facility] | [address] | [place] | | | [facility] | | [address] | | | - LABORATORY | | | | + + + + + documented in this encounter Visit Diagnoses + + | Diagnosis | + + | Osteoarthritis Osteoarthrosis, unspecified whether generalized or localized, | | unspecified site | + + documented in this encounter"
--- OUTSIDE RECORDS SUMMARY | ~2019-05-18 | XMS | Encounter Summary ---
Demographics + + + | Address | [address] | | | [place] [address] | + + + | Home Phone [...] | Author | [facility] | | | and [place]ana | + + + | Organization | [facility] | [...] | | | | | [place] [address] | | + + + + + | Hunter Jackson | ECON | [place] | | + + + + + | Wes Jackson | ECON | [place], [place] | | + + + + + | Oziel Jackson | ECON | [place], [place] | | + + + + + Care Team Providers + +------+ + | Care Integration Analyst Name | Role | Phone | + +------+ + | Rodolfo Cruz MD | PCP | | + +------+ + Encounter Details +--------+ + + + + | Date | Type | Department | Care Team | Description | +--------+ + + + + | 05/08/ | Hospital | [facility] | Beatriz Faust | | | 2010 | Encounter | MED CTR XRAY [address] | DO Danny Padron | | | | | [place] | [place], [place] | | | | | [place] [address] | [address] | | | | | [phone] | | | +--------+ + + + [...] | | | | | | [place] [address] | | | | | | [phone] | | | | | | | [...] Performed At | + + + | [facility] Diagnostic Imaging Department | [facility] | | [address] [facility] | [facility] | | GALLBLADDER ULTRASOUND 05/08/2011 | DIAG [...] Transcribed Date/Time: | | | 05/08/2011 15:21 Back Digger Operator: <Electronically Signed | | | by Peng Acosta MD> 05/08/11 1607 | | + + + + + | Procedure Note | + + | Zoltan Macedo Conversion - 06/18/2013 4:[address] [facility] | | Diagnostic Imaging Department [address] [facility] | | GALLBLADDER ULTRASOUND 05/08/2011 CLINICAL HISTORY: [...] 13:46 | |Transcribed Date/Time: 05/08/2011 15:21 | |Back Digger Operator: | |<Electronically Signed by Peng Acosta MD> [...]
--- OUTSIDE RECORDS SUMMARY | ~2019-05-18 | XMS | Encounter Summary ---
Demographics + + + | Address | [address] | | | [place] [address] | + + + | Home Phone [...] [facility] | | | and [place]ana | + + + | Organization | [facility] | | [...] | | | | | [place] [address] | | + + + + + | Hunter Jackson | ECON | [place] | | + + + + + | Wes Jackson | ECON | [place], [place] | | + + + + + | Oziel Jackson | ECON | [place], [place] | | + + + + + Care Team Providers + +------+ + | Care Hospice Patient Care Secretary Name | Role | Phone | + +------+ + | Rodolfo Cruz MD | PCP | | + +------+ + Encounter Details +--------+ + + + + | Date | Type | Department | Care Team | Description | +--------+ + + + + | 06/16/ | Hospital | [facility] | Rodolfo Cruz, | Fatigue; Essential | | 2014 | Encounter | MED CTR LABORATORY | MD Raya RASHID | hypertension; | | | | [address] [place] | [place], [place] | Pulmonary nodule, | | | | [place] | [address] | right; Pulmonary | | | | [address] | | nodule | | | | [phone] | | | +--------+ + + + [...] +---------+ + + | aspirin 81 mg EC | Take 81 mg by mouth | | 0 | | | | tablet | Daily. | | | | 5 | + [...] eszopiclone | Take 1 tablet by | 30 | 0 | 04/25/20 | | | (LUNESTA) 1 mg | mouth nightly as | tablet | | 14 | 5 | | TABSIndications: | needed. | | | | | | Insomnia [...] prn pain, | 90 | 0 | 03/29/20 | | | HYDROcodone-acetamin | avoid routine use, | tablet | | 14 | 5 | | ophen (NORCO) | 90 day supply | | | | | | 7.5-325 mg per | | | | | | | tabletIndications: | | | | | | | Back pain | | | | | | + + + +---------+ + + | levothyroxine | TAKE 1 TABLET BY | 90 | 3 | 05/14/19 | | | (SYNTHROID, | MOUTH EVERY DAY IN | tablet | | 15 | 5 | | LEVOTHROID) 125 mcg | THE MORNING BEFORE | | | | | | tablet | BREAKFAST | | | | | + + [...] [place]REET[place] | | | | | | [address] | | | | | | | | +--------+---------+ + + + | 11/21/ | Office | Cardiology | Yesi, | | | 2019 | Visit | | JOSE ALBERTO Linder [address] | | | | | | [place], | | | | | | [place] [address] | | | | | | [phone] | | | | | | | | +--------+---------+ + + + documented as of this encounter Procedures + +--------+ + + + | Procedure Name | Priori | Date/Time | Associated Diagnosis | Comments | | | ty | | | | + +--------+ + + + | BUN | Routin | 06/16/2014 | Pulmonary nodule | Results for this | | | e | 11:35 AM | | procedure are in the | | | | PST | | results section. | + +--------+ + + + | TSH | Routin | 06/16/2014 | Essential | Results for this | | | e | 11:35 AM | hypertension | procedure are in the | | | | PST | | results section. | + +--------+ + + + | PROTEIN | Routin | 06/16/2014 | Pulmonary nodule, | Results for this | | ELECTROPHORESIS, | e | 11:35 AM | right Fatigue | procedure are in the | | SERUM | | PST | | results section. | + +--------+ + + + | CREATININE | Routin | 06/16/2014 | Pulmonary nodule | Results for this | | | e | 11:35 AM | | procedure are in the | | | | PST | | results section. | + +--------+ + + + | COMPREHENSIVE | Routin | 06/16/2014 | Essential | Results for this | | METABOLIC PANEL | e | 11:35 AM | hypertension | procedure are in the | | | | PST | | results section. | + +--------+ + + + | URINALYSIS WITH | Routin | 06/16/2014 | Essential | Results for this | | MICROSCOPIC IF | e | 10:58 AM | hypertension | procedure are in the | | INDICATED | | PST | | results section. | + +--------+ + + + | SEDIMENTATION RATE | Routin | 06/16/2014 | Fatigue | Results for this | | | e | 10:51 AM | | procedure are in the | | | | PST | | results section. | + +--------+ + + + | CBC WITH | Routin | 06/16/2014 | Fatigue | Results for this | | DIFFERENTIAL | e | 10:51 AM | | procedure are in the | | | | PST | | results section. | + +--------+ + + + | HEMOGLOBIN A1C | Routin | 06/16/2014 | Essential | Results for this | | | e | 8:50 AM | hypertension | procedure are in the | | | | PST | | results section. | + +--------+ + + + documented in this encounter Results Creatinine (06/16/2014 11:35 AM PST) + +-------+ + + + | Component | Value | Ref Range | Performed | Pathologist | | | | | At | Signature | + +-------+ + + + | Creatinine | 0.65 | 0.60 - 1.30 | [facility] | | | | | mg/dL | [facility] | | | | | | MEDICAL | | | | | | CENTER - | | | | | | LABORATORY | | + +-------+ + + + | eGFR if not | >60 | >=60 | [facility] | | | | | mL/min/1.73m2 | [facility] | | | SURINAMESE | | | MEDICAL | | | [...] + | [facility] | [address] | [place], [place] | [phone] | | [facility] | | [address] | | | - LABORATORY | | | | + + + + + | [facility] | [address] | [place], [place] | | | [facility] | | [address] | | | - LABORATORY | | | | + + + + + BUN (06/16/2014 11:35 AM PST) + +-------+ + + + | Component | Value | Ref Range | Performed | Pathologist | | | | | At | Signature | + +-------+ + + + | BUN | 11 [...] + | [facility] | [address] | [place] | [phone] | | [facility] | | [address] | | | - LABORATORY | | | | + + + + + | [facility] | [address] | [place] | | | [facility] | | [address] | | | - LABORATORY | | | | + + + + + Protein Electrophoresis, Serum (06/16/2014 11:35 AM PST) [...] | CENTER - | | | | Rittenfrancisco javier [id number] | | LABORATORY | | | |2-15 | | | | + + + [...] ST. | [address] | [place], [place] | [phone] | | [facility] | | [address] | | | - LABORATORY | | | | + + + + + | [facility] | [address] | [place], [place] | | | [facility] | | [address] | | | - LABORATORY | | [...] | samples are screened | uIU/mL | [facility] | | | | using a 2nd [...] + | [facility] | [address] | [place] | [phone] | | [facility] | | [address] | | | - LABORATORY | | | | + + + + + | [facility] | [address] | [place] | | | [facility] | | [address] | | | - LABORATORY | | [...] | | | FILTRATION | mL/min/1.73m2 | [facility] | | | SURINAMESE | RATE,ESTIMATED | | MEDICAL | | | | mL/min/1.52o5Mlxj than | | CENTER - | | [...] | 9.8 | 8.3 - 10.5 | [facility] | | | | | mg/dL | [facility] | | | | | | MEDICAL | | | | | | CENTER - | | | | | | LABORATORY | | + + + + + + | Albumin | 4.0 | 3.2 - 5.0 g/dL | [facility] | | | | | | [facility] | | | | | | [...] [address] | [place] | [phone] | | [facility] | | [address] | | | - LABORATORY | | | | + + + + + | [facility] | [address] | [place] | | | [facility] | | [address] | | | - LABORATORY | | [...] | Urine | | Yellow | [facility] | | | | [...] - 1.030 | [facility] | | | [place] | | | [facility] | | [...] + + | [facility] | [address] | [place], [place] | [phone] | | [facility] | | [address] | | | - LABORATORY | | | | + + + + + | [facility] | [address] | [place], [place] | | | [facility] | | [address] | | | - LABORATORY | | | | + + + + + Sedimentation Rate (06/16/2014 10:51 AM PST) + +-------+ + + + | Component | Value | Ref Range | Performed | Pathologist | | | | | At | Signature | + +-------+ + + + | ESR | 28 | <30 mm/hr | [facility] | | [address] | [place] | [phone] | | [facility] | | [address] | | | - LABORATORY | | | | + + + + + | [facility] | [address] | [place] | | | [facility] | | [address] | | | - LABORATORY | | | | + + + + + CBC with Differential (06/16/2014 10:51 AM PST) + + + + + + | Component | Value | Ref Range | Performed | Pathologist | | | | | At | Signature | + + + + + + | WBC | 10.7 | 4.0 - 11.0 K/uL | [facility] | | | | | | [facility] | | | | | | [facility] | | | | | | CENTER [...] + | [facility] | [address] | [place], [place] | [phone] | | [facility] | | [address] | | | - LABORATORY | | | | + + + + + | [facility] | [address] | [place], [place] | | | [facility] | | [address] | | | - LABORATORY | | [...] | Estimated | 117 | mg/dL | [facility] | | | Average | | | [...] + | [facility] | [address] | [place], [place] | [phone] | | [facility] | | [address] | | | - LABORATORY | | | | + + + + + | [facility] | [address] | [place], [place] | | | [facility] | | [address] | | | - LABORATORY | | | | + + + + + documented in this encounter Visit Diagnoses + + | Diagnosis | + + | Fatigue Other malaise and fatigue | + + | Essential hypertension Unspecified essential hypertension | + + | Pulmonary nodule, right Solitary pulmonary nodule | + + | Pulmonary nodule Solitary pulmonary nodule | + + documented in this encounter"
--- OUTSIDE RECORDS SUMMARY | ~2019-05-18 | XMS | Encounter Summary ---
Demographics + + + | Address | [address] | | | [place] [address] | + + + | Home Phone [...] | [facility] | | | and [place] | + + + | Organization | [facility] [...] [place] | | | | | [place] [address] | | + + + + + | Hunter Jackson | ECON | [place] | | + + + + + | Wes Jackson | ECON | [place], [place] | | + + + + + | Oziel Jackson | ECON | [place], [place] | | + + + + + Care Team Providers + +------+ + | Care Railway Equipment Operator Name | Role | Phone | [...] | Essential | Yesi, | [address] | | | | | hypertension | JOSE ALBERTO Harry | [place], | | | | | with goal | [address] | [place] | | | | | blood | [place] | [address] | | | | | pressure | [facility] [place], | Phone: | | | | | less than | [place] | [phone] | | | | | 130/80 | [address] | Fax: | | | | | Murmur | Phone: | [phone] | | | | | Procedures | [phone] | | | | | | ECHO | Fax: | | | | | | Complete [place] | [phone] | | | | | | ECHO HEART | | | | | | | XTHORACIC,CO | | | | | | | MPLETE W | | | | | | | [place] | | | | | | | [...] | Essential | Yesi, | [address] | | | | | hypertension | JOSE ALBERTO Harry | [place], | | | | | with goal | [address] | [place] | | | | | blood | [place] | [address] | | | | | pressure | [place], | Phone: | | | | | less than | [place] | [phone] | | | | | 130/80 | [address] | Fax: | | | | | Murmur | Phone: | [phone] | | | | | Procedures | [phone] | | | | | | ECHO | Fax: | | | | | | Complete [place] | [phone] | | | | | | ECHO HEART | | | | | | | XTHORACIC,CO | | | | | | | MPLETE W | | | | | | | [place]OPPLER [place] | | | | | | | ECHO HEART | | | | | | | XTHORABERTHACO | | | | | | | MPLETE, W/O | | | | | | | DOPPLER | | | +--------+--------+ + + + + Encounter Details +--------+ + + + + | Date | Type | Department | Care Team | Description | +--------+ + + + + | 07/16/ | Hospital | [facility] | Yesi, | Essential | | 2017 | Encounter | MED CTR ECHO [address] | Niyah DEALER DEVELOPMENT MANAGER [address] | hypertension with | | | | [place] | [place], | goal blood pressure | | | | [place] [address] | [place] [address] | less than 130/80; | | | | [phone] | [phone] | [place] | | | | | | | | | | | Marya Burnett L, | | | | | | Technologist | | +--------+ + + + + [...] | | | | 7 | | SOFTWARE APPLICATIONS ARCHITECT PO) | | | | | | [...] [place] | | | | | | [address] | | | | | | | | +--------+---------+ + + + | 11/21/ | Office | Cardiology | Yesi, | | | 2019 | Visit | | JOSE ALBERTO Harry [address] | | | | | | [place] | | | | | | [place] [address] | | | | | | [phone] | | | | | | | | +--------+---------+ + + + documented as of this encounter Procedures + +--------+ + + + | Procedure Name | Priori | Date/Time | Associated Diagnosis | Comments | | | ty | | | | + +--------+ + + + | ECHO COMPLETE | Routin | 07/16/2016 | Essential | Results for this | | | e | 10:38 AM | hypertension with | procedure are in the | | | | PST | goal blood pressure | results section. | | | | | less than 130/80 | | | | | | [place] | | + +--------+ + + + documented in this encounter Results ECHO Complete (07/16/2016 10:38 AM PST) + +-------+ + + + | Component | Value | Ref Range | Performed | Pathologist | | | | | At | Signature | + +-------+ + + + | LVEF-TTE | 69 | | [facility] | | | TRANSTHOR[facility] | | | 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 BAUDILIO LOWERY SALLY Age | | | 80 year(s) Interpreting [place] WH[employer] | | | Insurance Job Titles | | | CHRISTOPHER ARECHIGA MD Gender [...] | 50.56 ml | | | EF Nmulkokem48% Left Ventricle Diastolic Dimension: 5.07 | | [...] Volume: 50.56 ml | | | EF Vqwugsyty29% | | | | | | Left [...] Room Number DEION | | Patient Number [id number] Date of Study 07/16/2016 Visit Number | | [id number] Referring Physician YG HARRY Number | | Date of 1935 Construction Scheduler BAUDILIO LOWERY SALLY Age | | 80 year(s) Interpreting [employer] | | Insurance Job Titles CHRISTOPHER ARECHIGA MD Gender Female | | [...] LA Volume: 50.56 ml | | EF Izdtmddjk40% Left Ventricle Diastolic Dimension: 5.07 cm | [...] LA Volume: 50.56 ml | | EF Ztzspbukf00% | | | | Left Ventricle | [...] ST. | [address] | [place] | [phone] | | [facility] | | [id number] | | | - IMAGING | | | | + + + + + documented in this encounter Visit Diagnoses + + | Diagnosis | + + | Essential hypertension with goal blood pressure less than 130/80 | + + | Murmur Undiagnosed cardiac murmurs | + + documented in this encounter"
--- OUTSIDE RECORDS SUMMARY | ~2019-05-18 | XMS | Encounter Summary ---
Demographics + + + | Address | [address] | | | [place] [address] | + + + | Home Phone [...] [facility] | | | and [place]ana | + + + | Organization | [facility] | [...] | | | | | [place] [address] | | + + + + + | Hunter Jackson | ECON | [place] | | + + + + + | Wes Jackson | ECON | [place], [place] | | + + + + + | Oziel Jackson | ECON | [place], [place] | | + + + + + Care Team Providers + +------+ + | Care Appliance Service Representative Name | Role | Phone | [...] | Lumbosacral | Bal, | [address] | | | | | spondylosis | Harsha Moreno MD | [place], | | | | | without | [address] | [place] | | | | | myelopathy | [facility] | [address] | | | | | Procedures | [place] | Phone: | | | | | ID INJ | [id number] | [phone] | | | | | DX/THER AGNT | Phone: | Fax: | | | | | PARAVERT | [phone] | [phone] | | | | | FACET JOINT, | Fax: | | | | | | LUMBAR/SAC, | [phone] | | | | | | 1ST LEVEL | | | | | | | ID INJ | | | | | | [...] + + | 12/09/ | Hospital | [facility] | Yany, | Chronic low back | | 2015 | Encounter | MED CTR XRAY [address] | [address] | pain; DDD | | | | [address] [place] | [facility], | (degenerative disc | | | | [place] [address] | [place] [address] | disease), lumbar; | | | | [phone] | [phone] | 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 | [place] | [phone] | | [facility] | | [address] | | | - IMAGING | | [...]
--- OUTSIDE RECORDS SUMMARY | ~2019-05-18 | XMS | Encounter Summary ---
Demographics + + + | Address | [address] | | | [place] [address] | + + + | Home Phone | | + + + | Preferred Language | Unknown | + + + | Marital Status | | + + + | Catholic Affiliation | Unknown | + + + | Race | Unknown | + + + | Ethnic Group | Unknown | + + + Author + + + | Author | [facility] | | | and [place] | + + + | Organization | [facility] | | | and [...] | | | | | [place] [address] | | + + + + + | Hunter Jackson | ECON | [place] | | + + + + + | Wes Jackson | ECON | [place], [place] | | + + + + + | Oziel Jackson | ECON | [place], [place] | | + + + + + Care Team Providers + +------+ + | Care Drift Miner Name | Role | Phone | [...] Chronic low | Yany, | [address] | | | | | back pain | Velvet, | [place] Batista, | | | | | DDD | PA-C [address] | [place] | | | | | (degenerativ | [address] | [address] | | | | | e disc | [place] | Phone: | | | | | disease), | [address] | [phone] | | | | | lumbar | Phone: | Fax: | | | | | Procedures | [phone] | [phone] | | | | | MRI Lumbar | Fax: | | | | | | Spine wo | [phone] | | | | | | Contrast [...] Chronic low | Yany, | [address] | | | | | back pain | Velvet, | [place], | | | | | DDD | PA-C [address] | [place] | | | | | (degenerativ | [address] | [address] | | | | | e disc | [place] | Phone: | | | | | disease), | [address] | [phone] | | | | | lumbar | Phone: | Fax: | | | | | Procedures | [phone] | [phone] | | | | | MRI Lumbar | Fax: | | | | | | Spine wo | [phone] | | | | | | Contrast | | | | | | | MRI | | | +--------+--------+ + + + + Encounter Details +--------+ + + + + | Date | Type | Department | Care Team | Description | +--------+ + + + + | 01/09/ | Hospital | [facility] | Yany, | Chronic low back | | 2015 | Encounter | MED CTR MRI [address] | [address] | pain; DDD | | | | [address] [place], | [facility], | (degenerative disc | | | | [place] [address] | [place] [address] | disease), lumbar | | | | [phone] | [phone] | | | | | | | [...] | | | | | | [place] [address] | | | | | | [phone] | | | | | | | [...] back pain, not responding to conservative | [facility] | | treatment COMPARISON: None TECHNIQUE: In the 1.5T scanner [facility] | | multiplanar, multisequence imaging [...] + + | Performing | Address | City/State[facility] | Phone Number | | Organization | | | | + + + + + | OLEGARIO FLANNERY. | [address] | [place] | [phone] | | [facility] | | [address] | | | - IMAGING | | [...]
--- OUTSIDE RECORDS SUMMARY | ~2019-05-18 | XMS | Encounter Summary ---
Demographics + + + | Address | [address] | | | [place] [address] | + + + | Home Phone [...] Author | [facility] | | | and [place] | + + + | Organization | [facility] [...] | | | | | [place] [address] | | + + + + + | Hunter Jackson | ECON | [place] | | + + + + + | Wes Jackson | ECON | [place], [place] | | + + + + + | Oziel Jackson | ECON | [place], [place] | | + + + + + Care Team Providers + +------+ + | Care Buzzsaw Operator Helper Name | Role | Phone [...] Description | +--------+---------+ + + + | 08/18/ | Office | [facility] | Ulysses Jensen, | Rotator cuff | | 2014 | Visit | ORTHOPEDIC SURGERY | MD Danny PARHAM | syndrome of right | | | | [address] [facility] | [place] | shoulder (Primary | | | | [place] | [address] | Dx); [facility] arthritis | | | | [address] | | | | | | [phone] | | | +--------+---------+ + + + [...] Temperature | 36.9 C (98.4 F) | 08/18/2014 9:56 AM | | | | | PDT [...] encounter Progress Notes Ulysses Jensen MD - 08/18/2014 11:58 AM PDTPatient returns for right shoulder injection a nd right first cmc joint injection Under sterile conditions I injected right shoulder subacromial space with kenalog 40mg and 3cc marcaine I then injected her right first cmc joint with celestone 3mg and 1cc marcaine She will return as needed documented [...] STREETER | | | | | | [id number] | | | | | | | | +--------+---------+ + + + | 11/21/ | Office | Cardiology | Yesi, | | | 2020 | Visit | | JOSE ALBERTO Linder [address] | | | | | | [place], | | | | | | [place] [address] | | | | | | [phone] | | | | | | | [...]
--- OUTSIDE RECORDS SUMMARY | ~2019-05-18 | XMS | Encounter Summary ---
Demographics + + + | Address | [address] | | | [place] [address] | + + + | Home Phone [...] | Author | [facility] | | | and [place] | + + + | Organization | [facility] | [...] | | | | | [place] [address] | | + + + + + | Hunter Jackson | ECON | [place] | | + + + + + | Wes Jackson | ECON | [place], [place] | | + + + + + | Oziel Jackson | ECON | [place], [place] | | + + + + + Care Team Providers + +------+ + | Care Transportation Planner Name | Role | Phone | + +------+ + | Rodolfo Cruz MD | PCP | | + +------+ + Reason for Visit +---------+ + | Reason | Comments | +---------+ + | Results | | +---------+ + Encounter Details +--------+ + + + + | Date | Type | Department | Care Team | Description | +--------+ + + + + | 03/16/ | Telephone | [facility] | Rodolfo Cruz, | Results | | 2014 | | MEDICINE [facility] Sravan | MD [address] | | | | | [place] | [place] [address] | | | | | [place] [address] | [address] | | | | | [phone] | | | +--------+ + + + [...] | | | | | | [place] [address] | | | | | | [phone] | | | | | | | | +--------+---------+ + + + documented as of this encounter Visit Diagnoses Not on filedocumented in this encounter"
--- OUTSIDE RECORDS SUMMARY | ~2019-05-18 | XMS | Encounter Summary ---
Demographics + + + | Address | [address] | | | [place] [address] | + + + | Home Phone [...] | Author | [facility] | | | and [place] | + + + | Organization | [facility] | | [...] [place] | | | | | [place] [address] | | + + + + + | Hunter Jackson | ECON | [place] | | + + + + + | Wes Jackson | ECON | [place], [place] | | + + + + + | Oziel Jackson | ECON | [place], [place] | | + + + + + Care Team Providers + +------+ + | Care Personnel Security Specialist Name | Role | Phone | [...] + + | 08/01/ | Office | [facility] | Yesi, | Aortic valve | | 2017 | Visit | CARDIOLOGY [address] | JOSE ALBERTO L[address] | insufficiency, | | | | [place], | [place], | unspecified etiology | | | | [place] [address] | [place] [address] | (Primary Dx); | | | | [phone] | [phone] | Essential | | | | | [...] ECG's available Confirmed by CHRISTOPHER ARECHIGA MD ([id number]) on 07/04/2016 6:13:25 AM LAB RESULTS reviewed during visit today primarily from [facility]: LIPID Lab Results Component Value Date [...] PLTEX 381 05/08/2016 I reviewed records from [facility] for office visit on 02which is [...] A. Seen in the emergency room at [facility] for chest pain. Sh e was schedule for stress test and discharged home. B. Stress Test 05/16/16, is maximal asymptomatic stress test, [employer] very poor function status, achieving maximal heart [...] failure.She is in a class I of [place] [employer] functional class. There is n [...] this chart may have been created with [employer] voice recognition software. Occasi onal wrong-word or [...] STREETER | | | | | | [id number] | | | | | | | | +--------+---------+ + + + | 11/21/ | Office | Cardiology | Yesi, | | | 2019 | Visit | | JOSE ALBERTO [address] | | | | | | [place], | | | | | | [place] [address] | | | | | | [phone] | | | | | | | [...]
--- OUTSIDE RECORDS SUMMARY | ~2019-05-18 | XMS | Encounter Summary ---
Demographics + + + | Address | [address] | | | [place] [address] | + + + | Home Phone [...] | Author | [facility] | | | and [place] | + + + | Organization | [facility] | | [...] [place] | | | | | [place] [address] | | + + + + + | Hunter Jackson | ECON | [place] | | + + + + + | Wes Jackson | ECON | [place], [place] | | + + + + + | Oziel Jackson | ECON | [place], [place] | | + + + + + Care Team Providers + +------+ + | Care Exhaust Equipment Operator Name | Role | Phone [...] Description | +--------+--------+ + + + | 01/08/ | Refill | [facility] [place] | Yesi, | Medication Refill | | 2017 | | CARDIOLOGY [address] | JOSE ALBERTO Linder [address] | | | | | [place], | [place], | | | | | [place] [address] | [place] [address] | | | | | [phone] | [phone] | | | | | | | [...] STREETER | | | | | | [address] | | | | | | | | +--------+---------+ + + + | 11/21/ | Office | Cardiology | Yesi, | | | 2019 | Visit | | JOSE ALBERTO [address] | | | | | | [place] | | | | | | [place] [address] | | | | | | [phone] | | | | | | | | +--------+---------+ + + + documented as of this encounter Visit Diagnoses Not on filedocumented in this encounter"
--- OUTSIDE RECORDS SUMMARY | ~2019-05-18 | XMS | Encounter Summary ---
Demographics + + + | Address | [address] | | | [place] [address] | + + + | Home Phone [...] Author | [facility] | | | and [place] | + + + | Organization | [facility] | | [...] [place] | | | | | [place] [address] | | + + + + + | Hunter Jackson | ECON | [place] | | + + + + + | Wes Jackson | ECON | [place], [place] | | + + + + + | Oziel Jackson | ECON | [place], [place] | | + + + + + Care Team Providers + +------+ + | Care Copra Sampler Name | Role | Phone | + +------+ + | Kellie Gunderson | PCP | | + +------+ + Encounter Details +--------+ + + + + | Date | Type | Department | Care Team | Description | +--------+ + + + + | 11/05/ | Telephone | [facility] | Rodolfo Cruz, | | | 2013 | | MEDICINE [address] [place] [address] | MD [address] | | | | | [facility] | [place], [place] | | | | | [place] [address] | [id number] | | | | | [phone] | | | +--------+ + + + [...] STREETER | | | | | | [id number] | | | | | | | | +--------+---------+ + + + | 11/21/ | Office | Cardiology | Yesi, | | | 2019 | Visit | | JOSE ALBERTO [address] | | | | | | [place], | | | | | | [place] [address] | | | | | | [phone] | | | | | | | | +--------+---------+ + + + documented as of this encounter Visit Diagnoses Not on filedocumented in this encounter"
--- OUTSIDE RECORDS SUMMARY | ~2019-05-18 | XMS | Encounter Summary ---
Demographics + + + | Address | [address] | | | [place] [address] | + + + | Home Phone [...] Author | [facility] | | | and [place] | + + + | Organization | [facility] | | [...] [place] | | | | | [place] [address] | | + + + + + | Hunter Jackson | ECON | [place] | | + + + + + | Wes Jackson | ECON | [place], [place] | | + + + + + | Oziel Jackson | ECON | [place], [place] | | + + + + + Care Team Providers + +------+ + | Care Telephone Technician Name | Role | Phone | [...] mixed (Primary Dx); | | | | [place], | [place], | 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 Coronary artery disease A. Seen at [facility] they had EKG and sent her home stating it was GERD B. Seen in the emergency room at [facility] for chest pain. She was schedu le for stress test and discharged home. C. Stress Test 05/16/16, is maximal asymptomatic stress test, [facility] er very poor function status, achieving [...] central AI, no , trace TR, trace VT, normal aorta other than mild calcification at [...] failure.She is in a class I of [place] [employer] functional class.on physica l examination [...] this chart may have been created with [employer] voice recognition software. Occasi onal wrong-word [...] STREETER | | | | | | [address] | | | | | | | | +--------+---------+ + + + | 11/21/ | Office | Cardiology | Yesi, | | | 2019 | Visit | | JOSE ALBERTO Linder [address] | | | | | | [place], | | | | | | [place] [address] | | | | | | [phone] | | | | | | | [...] involving | | | | | | prairie band coronary | | | | | | artery of prairie band | | | | | | heart with unstable | | | | | | angina pectoris | | | | | | ([facility]) Transient | | | | | [...] MD | | | | | | ([id number]) on 09/12/2017 | | | | | [...] + + | Coronary artery disease involving prairie band coronary artery of prairie band heart with unstable | | angina pectoris (HCC) | + + | Transient cerebral ischemia, unspecified type | + + documented in this encounter
--- OUTSIDE RECORDS SUMMARY | ~2019-05-18 | XMS | Encounter Summary ---
Demographics + + + | Address | [address] | | | [place] [address] | + + + | Home Phone [...] | Author | [facility] | | | and Ohana | + + + | Organization | [facility] [...] S[place] | | | | | [place] [address] | | + + + + + | Hunter Jackson | ECON | [place] | | + + + + + | Wes Jackson | ECON | [place], [place] | | + + + + + | Oziel Jackson | ECON | [place], [place] | | + + + + + Care Team Providers + +------+ + | Care Systems Eng Name | Role | Phone | + [...] | | | disease | [address] | | | | | | involving | [place] | | | | | | [place] | [address] | | | | | | coronary | Phone: | | | | | | artery of | [phone] | | | | | | [place] heart | Fax: | | | | | | with | [phone] | | | | | | unstable | | | | | | | angina | | | | | | | pectoris | | | | | | | ([facility]) | | | +--------+ + + + [...] | | | atherosclero | | [address] | | | | | sis of | | AVE [place], | | | | | unspecified | | [place] [address] | | | | | type of | | Phone: | | | | | vessel, | | [phone] | | | | | [place] or | | Fax: | | | | | graft | | [phone] | | | | | Coronary | | | | | | | atherosclero | | | | | | | sis of | | | | | | | unspecified | | | | | | | type of | | | | | | | vessel, | | | | | | | [place] or | | | | | | | graft | | | | | | | Procedures | | | | | | | WI ENDOSCOPY | | | | | | | | | | | | | | W/VIDEO-ASST | | | | | | | VEIN | | | | | | | HARVEST,CABG | | | | | | | WI CABG, | | | | | | | ARTERY-VEIN, | | | | | | | FOUR WI | | | | | | | CABG, | | | | | | | ARTERIAL, | | | | | | | SINGLE | | | +--------+--------+ + + + + Encounter Details +--------+ + + + + | Date | Type | Department | Care Team | Description | +--------+ + + + + | 11/01/ | Hospital | [facility] | Eze, | Coronary artery | | 2017 - | Encounter | [facility] | MD Christina [address] [place] [address] | disease, angina | | | | CARDIAC TELEMETRY | [address] [place] | presence | | 11/06/ | | [address] | [address] | unspecified, | | 2017 | | [place] | | unspecified vessel | | | | [address] | | or lesion type, | | | | [phone] | | unspecified whether | | | | | | [place] or | | | | | | transplanted heart | | | | | | (Primary Dx); | | | | | | Valvular heart | | | | | | disease; Anemia, | | | | | | unspecified type; | | | | | | Coronary artery | | | | | | disease involving | | | | | | [place] coronary | | | | | | artery of [place] | | | | | | heart with unstable | | | | | | angina pectoris | | | | | | ([facility]); Stress | | | | | | [...] might be different f rom the original. [facility] DISCHARGE SUMMARY PATIENT NAME: Jaclyn Jackson : 1935: AGE: 81 y.o. ADMISSION DATE: 11/01/2016 DISCHARGE DATE: 11/06/2016 PRIMARY CARE: FLORA Morgan Patient ID: Jaclyn Jackson [id number] 81 y.o. 1935 5 days Admitting Physician: Christina Loo MD Discharge Diagnoses: Active Hospital Problems Diagnosis Date Noted Anemia 11/24/2013 Priority: High Hyperlipidemia, mixed Priority: High Coronary artery disease involving [place] coronary artery of [place] heart with unstable angina pectoris 11/02/2016 Stress [...] Cardiology: Dr. Suhail Torres Endocrinology: Flor Lynch [facility] Course: The patient proceeded to OR [...] Why: at 11:00 am Contact information: [address] [facility] [address] Call Christina Loo MD. Specialty: Cardiothoracic Surgery Why: As needed, If symptoms worsen. Otherwise okay to follow up postop with Dr. Cevallos Contact information: [address] [facility] [id number] FLORA Morgan. Schedule an appointment as soon as possible for a visit in 2 weeks. Specialty: Physician Project Archivist Why: Primary care follow up after cardiac surgery Contact information: [address], [address] [place] [address] If patient has any further questions or concerns prior to above, instructed to call our off ice. [phone]. Time spent on discharge planning: less than [...] Mario London PA-C 11/06/2016 13:12 Cardiothoracic Surgery [facility] [address], [address] [place], [place] [address] Portions of this chart may have been created with The Scene voice recognition software. Occasi onal wrong-word or sound-alike substitutions may have occurred due to the inherent doe itations of voice recognition software. Please read the chart carefully and recognize, using context, where these substitutions have occurred. documented in this encounter Discharge Instructions Instructions Dominga Hernandez RN - 11/06/2016Formatting of this note might be different fro m the original. [facility] After Open [...] ed help. Don t lift anything heavier [id number] for 4-6 weeks. Until approved by your [...] the hospital, begin with short wal ks ([id number]) at home. Go a little longer each [...] of breath Fainting Weight gain of more [id number] ec63ytrcc or more ondb2kaoipm wv0tgtf(s) New or increasedswelling in your hands, feet, [...] person(s) in the waiting room?: Mary - [phone] Patient Signature: Clinician/Urology Teacher Signature: documented in this encounter Medications [...] patient and daughter. Prescriptions reviewed, pt to pick pulling machine tender at [facility] pharmacy. Questions answered. Advised of follow up appointme nts and to schedule follow up with PCP. Pt given Mg citrate this am with multiple BM's. To s hower and change and DC home to [place] by car with daughter. Update: Pt showered, dressed. States that she has all belongings. WC transport placed to ms in doors. Daughter picked up meds at [...] PRIMARY HOSPITAL PROBLEM: Coronary artery disease involving [place] coronary artery of [place] heart with unstable miranda na pectoris (HCC) CHIEF COMPLAINT: CAD ASSESSMENT Anemia Assessment & Plan H/H 9.12/07 stable Hyperlipidemia, mixed Assessment & Plan Continue statin * Coronary artery disease involving [place] coronary artery of [place] heart with unstable an nayeli pectoris (HCC) Assessment & Plan POD #6 Coronary artery bypass grafting x3 (VERDUZCO-LAD, rSVG-Diag, rSVG-RCA) LVEF 65% prostoperatively. PLAN OK to dc to home follow up in [place] SUBJECTIVE DATA SUBJECTIVE: tired after having BM [...] PA- C - 11/06/2016 9:10 AM PDT [facility] Progress Note Pt. Name/Age/: Jaclyn Jackson 81 y.o. 1935 Med. Record Number: [id number] Date of admission: 11/01/2016 Hospital Day: 6 5 Days Post-Op Procedure: CABGx3 Date of Surgery: 11/01/16 Surgeon: Dr. Christina Loo MD. Anusha Flores PA-C assisting SUBJECTIVE Background History: 81 y.o. female with CAD admitted electively for above surgery Intraop findings: poor vein, composite graft from [facility] for diag; poor reop candidate. Nor mal EF XC 53min; CPB 79 min POD 0: extubated neuro intact POD1: DC CT's; transfer to tele POD2: progressive CV recovery POD 3: dc TPW; work with PT on stairs POD4: wean oxygen, continue CV recovery Consultations: Cardiology: Dr. Suhail Flannrey Endocrinology: JOSE ALBERTO Scherer Interval (24 hour) [...] PLAN Principal Problem: Coronary artery disease involving [place] coronary artery of [place] heart with unstable an nayeli pectoris Active [...] Mario London PA-C 11/06/2016 9:10 Cardiothoracic Surgery [facility] [address] [place] [address] Portions of this chart may have been created with The Scene voice recognition software. Occasi onal wrong-word or [...] PRIMARY HOSPITAL PROBLEM: Coronary artery disease involving [place] coronary artery of [place] heart with unstable miranda na pectoris (HCC) CHIEF COMPLAINT: Feeling well, no shortness of breath or chest pain ASSESSMENT Anemia Assessment & Plan H/H stable WBC trending down Oral Iron replacement? * Coronary artery disease involving [place] coronary artery of [place] heart with unstable an nayeli pectoris (HCC) [...] Portions of this chart were created with The Scene voice recognition software. Occasional wro ng-word or [...] feels quite well Follow-up can be in [place] from the cardiac standpoint They will talk with the surgeon regarding surgical follow-up and if it can be done locally or they need to come here. Suhail Flannery MD [facility] 11/05/2016 16:36 During this hospital [...] might be differen t from the original. [facility] Daily Progress Note 11/05/2016 Pt. Name/Age/: Jaclyn Jackson 81 y.o. 1935 Med. Record Number: [id number] Date of admission: 11/01/2016 Hospital Day: 5 4 Days Post-Op LVEF: 60-70 Procedure: CABGx3 Date of Surgery: 11/01/16 Surgeon: Dr. Christina Loo MD. Anusha Flores PA-C assisting Interval Events Uneventful night. ASSESSMENT: POD# 4 S/P CABGx3 - Overall doing well, hemodynamics stable, needs BM, on min imal O2, plan home tomorrow to [place] with daughter in law. Neuro: --Hx TIA [...] Dispo: --Plan home with family tomorrow to [place] --Will need to f/u with [facility] in 1 month --Ok per cardiology to f/u with cards in [place] CURRENT PLAN Increase norvasc Change IV to [...] Earlene Bonilla PA-C 11/05/2016 7:30 Cardiothoracic Surgery [facility] [address] [place] [address] I have participated in the care of [...] PRIMARY HOSPITAL PROBLEM: Coronary artery disease involving [place] coronary artery of [place] heart with unstable miranda na pectoris (HCC) CHIEF COMPLAINT: Tired, incisional pain but no chest pain or shortness of breath ASSESSMENT Anemia Assessment & Plan H/H 9.12/07 and stable WBC trending down * Coronary artery disease involving [place] coronary artery of [place] heart with unstable an nayeli pectoris (HCC) Assessment & Plan 11/01/2016: Coronary artery bypass grafting x3 (VERDUZCO-LAD, rSVG-Diag, rSVG-RCA) LVEF 65% pro stoperatively. -Continue Amlodipine, Aspirin, Statin, Metoprolol -ECG without acute changes PLAN Continue current medications Increase ambulation Follow up with Physical Therapist Center Manager in [place] SUBJECTIVE DATA REVIEW OF SYSTEMS: CV: negative [...] Portions of this chart were created with The Scene voice recognition software. Occasional wro ng-word or [...] presentation. Followup: She wants her followup in [place] and that is fine by me. I am not sure if surgical fo llowup in [place] is acceptable. Suhail Flannery MD [facility] 11/04/2016 17:32 During this hospital [...] Jackson DATE OF : 1935 MED RECORD: [id number] Pre-OP Dx Coronary artery disease Hypertension Dyslipidemia history of transient ischemic attack Hypothyroidism mild aortic regurgitation and calcified mitral annulus with calcium nodule in posterior mitral leaflet. Procedure 11/01/16 1. Coronary artery bypass surgery times 3, VERDUZCO to LAD, saphenous vein graft to diagonal, saphenous vein graft to right coronary artery. 2. Endoscopic vein harvest, left greater saphenous vein. SURGEON: Christina Loo MD NUCLEAR PHYSICS TEACHER: Anusha Flores PA-C SUBJECTIVE Sitting in chair. [...] 7.46 7.47 PO2ART 113* 118* 116* 156* JRU3NNG 44* 47* 33 35 F0NXPWFL 95.2 95.6 95.7 96.8 BEART -- -- [...] regarding this --home ~2d Serene Castillo PA-C [facility] 11/04/2016, 8:02 I have [...] Chronic low back pain 08/24/2014 Clotting disorder ([facility]) 2013 duodenal ulcer COPD (chronic obstructive pulmonary disease) ([facility]) DDD (degenerative disc disease), cervical 07/25/2016 DDD (degenerative disc disease), lumbar 08/24/2014 DJD (degenerative joint disease) 07/08/2013 Encounter for blood transfusion November 2013 Environmental allergies Essential hypertension Facet arthritis of lumbar region ([facility]) 08/24/2014 Foraminal stenosis of cervical region 07/25/2016 [...] 08/30/2010 Stenosis of cervical spine 07/25/2016 Stroke ([facility]) Apr 2010 TIA 05/08/2010 Tinea corporis 01/31/2015 UGIB (upper gastrointestinal bleed) 11/14/2013 Valvular heart disease 05/23/2010 Vertigo 09/03/2012 Past Surgical History: Procedure Laterality Date CARDIAC CATHERIZATION N/A 10/16/2016 Procedure: CV LHC; Surgeon: Irina Simms MD; Location: [facility] CV LAB COLONOSCOPY 05/2002; 03/28/10 next due 03/2020 FOOT FRACTURE SURGERY Left 2004 HEMORRHOID SURGERY [id number] Removal lower left nodules 2004 THYROIDECTOMY TONSILLECTOMY AND ADENOIDECTOMY 1955 UPPER GASTROINTESTINAL ENDOSCOPY 11/15/2013 EGD * IP RM: 428 * ; Laterality: N/A; Surgeon: Lauri Garrison MD; Location: [facility] UPPER GASTROINTESTINAL ENDOSCOPY 11/04/2013 EGD IP 449; Laterality: N/A; Surgeon: Samm Pandya MD; Location: [facility] reports that she [...] Procedure Component Value Units Date/Time MRSA NAAT [[id number]] Collected: 10/31/16 1520 Order Status: Completed Lab [...] Electronically signed by: Flor Lynch Diabetes team, [facility] [phone] Autumn, JOSE ALBERTO Joseph - 11/03/2016 10:37 AM PDT PATIENT NAME: Jaclyn Jackson : 1935: AGE: 81 y.o. 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 -Continue Amlodipine, Aspirin, statin, Metoprolol -ECG without acute changes PLAN Continue current medications Patient would like to follow up with cardiology in [place] SUBJECTIVE DATA REVIEW OF SYSTEMS: CV: negative [...] Portions of this chart were created with The Scene voice recognition software. Occasional wro ng-word or [...] halls without problems She has an established quality assurance representative in [place] up with her. Suhail Flannery MD [facility] 11/03/2016 15:57 During this hospital [...] MD - 11/03/2016 8:58 AM P DT [facility] HEART CARDIOTHORACIC SURGERY PROGRESS NOTE Pt. Name/Age/: Jaclyn Jackson 81 y.o. 1935 Med. Record Number: [id number] Date of admission: 11/01/2016 POD #2 Procedure: [...] cervical Cervical radiculopathy Coronary artery disease involving [place] coronary artery of [place] heart with unstable angina pectoris Stress hyperglycemia Electronically signed by: Otoniel Conroy PA-C Physician Project Archivist [facility] Cardi[facility] 11/03/2016 8:58 [facility] Addendum: Agree with above. Making good progress. Mando Calles MD u, Suhail washington MD - 11/02/2016 11:21 AM PDT [facility]: PATIENT NAME: Jaclyn Jackson : 1935: AGE: 81 y.o. ADMISSION DATE: 11/01/2016 Admitting Provider: Christina Loo MD Primary Provider: FLORA Morgan Hospital Day: Hospital Day: 2 LOS: 1 Code Status: Full Code Physical Therapist Center Manager: Suhail Flannery MD [facility] DATE OF SERVICE: 11/02/2016 PRIMARY HOSPITAL PROBLEM: CABG for [address] [facility] CHIEF COMPLAINT: Chest pain and nausea ASSESSMENT Discussion: Chest pain and nausea Will reassess with EKG, but seems incisional to me EKG looks fine, minimal change Labs look good, and overall she seems to be doing well CT tube are out, and NSR Anemia Assessment & Plan Actually looks good with 9.9 post op (11.7 prior). 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 Total number o f images: 1. IMPRESSION: Fluoroscopic assisted right jugular venous access with [place] c atheter. Signed by: Fredy Miranda Xr [...] 11/02/16 0711/02/16 07 - 11/03/16 0700 Shift [id number] 2905-3553 24 Hour Total 2566-6670 4933-7186 24 Hour Total I N T A [...] note and vitals reviewed. Suhail Flannery MD [facility] 11/02/2016 11:21 eeves, Mando willis MD - 11/02/2016 7:46 AM PDT [facility] HEART CARDIOTHORACIC SURGERY PROGRESS NOTE Pt. Name/Age/: Jaclyn Jackson 81 y.o. 1935 Med. Record Number: [id number] Date of admission: 11/01/2016 POD 1 Procedure: [...] -Levothyroxine 50 g daily Chronic pain -Takes Grapeview 7.5 and Voltaren ointment at home History [...] Electronically signed by: Amna Benavides PA-C Physician Project Archivist [facility] Cardi[facility] 11/02/2016 7:46 [facility] Addendum: Doing well though difficult night Agree [...] Sanchez LICSW - 11/01/2016 6:00 PM PDT Planning Aide: Pt resides in [place], [place]. She has Medicare coverage. Will follow progress post op and any other therapy recommendations for discharge planning. Semaj Keith - 11/01/2016 2:22 PM PDTPatigabriel nt arrived to room 260, vitals stable. Sedated. Reported received. mna Benavides PA-C - 11/01/2016 1:26 PM PDT [facility] Immediate Post-Operative Note Subjective Pt. Name/Age/: Jaclyn Jackson 81 y.o. 1935 Med. Record Number: [id number] Date of admission: 11/01/2016 Procedure: Coronary artery [...] Results Component Value Date PHART 7.47 11/01/2016 LHD4ANP 36 11/01/2016 PO2ART 290 11/01/2016 Q2VPLDEDE 13.9 (L) 11/01/2016 TFZ0OJG 26.0 11/01/2016 BEART 2.6 (H) 11/01/2016 HGB [...] -Levothyroxine 50 g daily Chronic pain -Takes Grapeview 7.5 and Voltaren ointment at home History of TIA -no neuro deficits upon admission History of asthma -uses albuterol at home Electronically signed by: Amna Benavides PA-C 11/01/2016 13:26 Cardiothoracic Surgery [facility] [address] [place] [address] Portions of this chart may have been created with The Scene voice recognition software. Occasi onal wrong-word or [...] STREETER | | | | | | [id number] | | | | | | | | +--------+---------+ + + + | 11/21/ | Office | Cardiology | Yesi, | | 2019 | Visit | | JOSE ALBERTO Linder [address] | | | | | [place], | | | | | | [place] [address] | | | | | | [phone] | | | | | | | [...] Occurrences starting | | | | | [place] coronary | 11/04/2016 until | | | | | artery of [place] | 11/04/2016 | | | | | [...] involving | | | | | | [place] coronary | | | | | | artery of [place] | | | | | | heart [...] | | | | | | vessel, [place] or | | | | | | [...] whether | | | | | | [place] or | | | | | | [...] whether | | | | | | [place] or | | | | | | [...] whether | | | | | | [place] or | | | | | | [...] whether | | | | | | [place] or | | | | | | [...] whether | | | | | | [place] or | | | | | | [...] whether | | | | | | [place] or | | | | | | [...] whether | | | | | | [place] or | | | | | | [...] + + | Glucose | 114 (H)Comment: Burmese | 65 - 99 mg/dL | [facility] | | | | Diabetes Association [...] [facility] | [address] | [place] [address] | | | [facility] | [...] [facility] | [address] | [place] [address] | | | [facility] | | | | [...] + + | OLEGARIO MIRANDA | [address] | [place] [address] | | | [facility] | | | | | [...] + + | OLEGARIO MIRANDA | [address] | [place] [address] | | | [facility] | | | | [...] + + | PROVID[facility] | [address] | [place] [address] | | | [facility] | [...] + + | Glucose | 115 (H)Comment: Burmese | 65 - 99 mg/dL | [facility] | | | | Diabetes Association | [...] [facility] | [address] | [place] [address] | | | [facility] | | | | [...] + + | OLEGARIO MIRANDA | [address] | [place] [address] | | | [facility] | | | | [...] [address] | [place] [address] | | | [facility] | | | | | [...] [address] | [place] [address] | | | [facility] | | | | | [...] OLEGARIO MIRANDA | [address] | [place] [address] | | | [facility] | | | | [...] + + | OLEGARIO MIRANDA | [address] | [place] [address] | | | [facility] | [...] | TRACEMASTER | | Duration:140 msP Horizontal Stoddard:-43 degP Front [place]:60 degQ Onset:514 | | | msQRSD Interval:78 msQT Interval:384 msQTcB:426 msQTcF:412 msQRS | | | Horizontal Stoddard:3 degQRS Stoddard:21 degI-40 Horizontal [place]oddard:-8 degI-40 | | | Front [place]:15 degT-40 Horizontal [place]:-6 degT-40 Front [place]:22 degT | | | Horizontal [place]:44 degT Wave Stodd[place]:12 degS-T Horizontal [place]:42 degS-T | | | Front [place]:22 degSeverity:- BORDERLINE ECG -INTERP:SINUS | | | RHYTHMINTERP:PROBABLE LEFT ATRIAL ABNORMALITYElectronically signed by: | | | PATRICK BURKETT 11-09-2016 13:17:14 | | |QTcB:426 ms | | |QTcF:412 ms | | |QRS Horizontal Stoddard:3 deg | | |QRS Stoddard:21 deg | | |I-40 Horizontal Stoddard:-8 deg | | |I-40 Front [place]oddard:15 deg | | |T-40 Horizontal Stoddard:-6 deg | | |T-40 Front Stoddard:22 deg | | |T Horizontal [place]odd[place]:44 deg | | |T Wave [place]:12 deg | | |S-T Horizontal [place]:42 deg | | |S-T Front [place]:22 deg | | |Severity:- BORDERLINE ECG - | | |INTERP:SINUS RHYTHM | | |INTERP:PROBABLE LEFT ATRIAL ABNORMALITY | | |Electronically signed by: PATRICK BURKETT 11-09-2016 13:17:14 | | + + + + + + + + | Performing | Address | City/State/Zipcode | Phone Number | | Organization | | | | + + + + + | [facility] | [address] | [place] [address] | [phone] | + + + + + POC [...] SACRED | [address] | [place] [address] | | | [facility] | [...] [facility] | [address] | [place] [address] | | | [facility] | | | | [...] + + | OLEGARIO MIRANDA | [address] | [place] [address] | | | [facility] | | | | [...] [address] | [place] [address] | | | [facility] | | | | | [...] [address] | [place] [address] | | | [facility] | | | | | [...] MARAHLIBERTADGabriel MIRANDA | [address] | [place] [address] | | | [facility] | | | | [...] + + | OLEGARIO MIRANDA | [address] | [place] [address] | | | [facility] | | | | | [...] SACRED | [address] | [place] [address] | | | [facility] | | | | | [...] + + | [facility] | [address] | [place] [address] | | | [facility] | | | | | [...] OLEGARIO SA[facility] | [address] | [place] [address] | | | [facility] | | | | | [...] + + | Glucose | 131 (H)Comment: Burmese | 65 - 99 mg/dL | [facility] | | | | Diabetes Association [...] SACRED | [address] | [place] [address] | | | [facility] | | | | | [...] + + | MARAHLIBERTADGabriel GRACEDRU | [address] | [place] [address] | | | [facility] | | | | [...] [facility] | [address] | [place] [address] | | | [facility] | [...] [address] | [place] [address] | | | [facility] | [...] + + | OLEGARIO MIRANDA | [address] | [place] [address] | | | [facility] | | | | [...] + + | OLEGARIO SACRDRU | [address] | [place] [address] | | | [facility] | | | | | [...] SACRED | [address] | [place] [address] | | | [facility] | | | | | [...] + + | PROVIDELIBERTADE SACRDRU | [address] | [place] [address] | | | [facility] | | | | [...] + + | OLEGARIO MIRANDA | [address] | [place] [address] | | | [facility] | | | | [...] [facility] | [address] | [place] [address] | | | [facility] | [...] [facility] | [address] | [place] [address] | | | [facility] | | | | [...] + + | OLEGARIO MIRANDA | [address] | [place] [address] | | | [facility] | | | | | [...] + + | OLEGARIO MIRANDA | [address] | [place] [address] | | | [facility] | | | | [...] Patient | | | Name: JACLYN JACKSONJAQUELINE: [id number] | | | Study Date: 11/01/2016DOB: 1935 [...] central AI, no , trace TR, trace WI.5. Normal aorta other than mild | | [...] |Ordering Physician: Christina Loo MD | | |Yard Clerk: Fredy Almaguer MD | | | | | + + + + + | Procedure Note | + + | Remington, Rad Results In - 11/01/2016 2:28 PM PDT | | Adult Intra-Op | | ORA Report | | | | Patient Name: JACLYN JACKSON | | Study Date: 11/01/2016 | | : 1935 Gender: Female | | Age: 81 yrs Location: [facility] OR | | OOL | | [...] central AI, no , trace TR, trace WI. | | 5. Normal aorta other than [...] Ordering Physician: Christina Loo MD | | Yard Clerk: Fredy Almaguer MD | + + Potassium [...] [facility] | [address] | [place] [address] | | | [facility] | [...] + + | OLEGARIO MIRANDA | [address] | [place] [address] | | | [facility] | [...] [facility] | [address] | [place] [address] | | | [facility] | | | | | [...] + + | [facility] | [address] | [place] [address] | | | [facility] | | | | | [...] + + | [facility] | [address] | [place] [address] | | | [facility] | [...] OLEGARIO MIRANDA | [address] | [place] [address] | | | [facility] | | | | [...] % | [facility] | | | | [id number] | | SACRED | | | | [...] + + | OLEGARIO MIRANDA | [address] | [place] [address] | | | [facility] | [...] | TRACEMASTER | | Duration:148 msP Horizontal Stoddard:6 degP Front Stoddard:72 degQ Onset:512 | | | msQRSD Interval:80 msQT Interval:452 msQTcB:463 msQTcF:459 msQRS | | | Horizontal Stoddard:16 degQRS Stoddard:56 degI-40 Horizontal Stoddard:49 degI-40 | | | Front Stoddard:45 degT-40 Horizontal Stoddard:-8 degT-40 Front Stoddard:59 degT | | | Horizontal Stoddard:66 degT Wave Stoddard:64 degS-T Horizontal Stoddard:66 degS-T | | | Front Stoddard:38 degSeverity:- NORMAL ECG -INTERP:SINUS | | | RHYTHMElectronically signed by: Ramin PEREZ 11-01-2016 16:20:01 | | |QT Interval:452 ms | | |QTcB:463 ms | | |QTcF:459 ms | | |QRS Horizontal Stoddard:16 deg | | |QRS Stoddard:56 deg | | |I-40 Horizontal Stoddard:49 deg | | |I-40 Front Stoddard:45 deg | | |T-40 Horizontal Stoddard:-8 deg | | |T-40 Front Stoddard:59 deg | | |T Horizontal Stoddard:66 deg | | |T Wave Stoddard:64 deg | | |S-T Horizontal Stoddard:66 deg | | |S-T Front Stoddard:38 deg | | |Severity:- NORMAL ECG - | | |INTERP:SINUS RHYTHM | | |Electronically signed by: Ramin PEREZ 11-01-2016 16:20:01 | | + + + + + + + + | Performing | Address | City/State/Zipcode | Phone Number | | Organization | | | | + + + + + | ROSEANN CORREA | [address] | [place] [address] | [phone] | + + + + + XR [...] + + | OLEGARIO MIRANDA | [address] | [place] [address] | | | [facility] | | | | [...] OLEGARIO MIRANDA | [address] | [place] [address] | | | [facility] | [...] + + | OLEGARIO MIRANDA | [address] | [place] [address] | | | [facility] | | | | [...] OLEGARIO SACRDRU | [address] | [place] [address] | | | [facility] | | | | | [...] + + | OLEGARIO MIRANDA | [address] | [place] [address] | | | [facility] | | | | [...] + + | OLEGARIO MIRANDA | [address] | [place] [address] | | | [facility] | | | | [...] [facility] | [address] | [place] [address] | | | [facility] | [...] [address] | [place] [address] | | | [facility] | | | | | [...] [facility] | [address] | [place] [address] | | | [facility] | | | | | [...] + + | OLEGARIO MIRANDA | [address] | [place] [address] | | | [facility] | [...] [facility] | [address] | [place] [address] | | | [facility] | [...] + + | OLEGARIO MIRANDA | [address] | [place] [address] | | | [facility] | | | | [...] + + | OLEGARIO MIRANDA | [address] | [place] [address] | | | [facility] | | | | [...] | | jugular venous access and [place] catheter and to the area of | | | segmental right lower lobe arteries. Total number of images: 1. | | | IMPRESSION: Fluoroscopic assisted right jugular venous access with | | | [place] catheter. Signed by: Fredy Miranda | | [...] showing left jugular venous access and [place] | | catheter and to the area of segmental right lower lobe arteries. | | | | Total number of images: 1. | | | | IMPRESSION: | | Fluoroscopic assisted right jugular venous access with [place] | | catheter. | | | | [...] | [address] | [place] [address] | | | HE[facility] | | | | | [...] MARAHLIBERTADGabriel MIRANDA | [address] | [place] [address] | | | [facility] | | | | [...] | [address] | [place] [address] | | | [facility] | [...] + + + + | Color, | Light Yellow | | [facility] | | | Urine [...] - 1.030 | [facility] | | | [place] | | | [facility]ED | | | [...] + + | OLEGARIO MIRANDA | [address] | [place] [address] | | | [facility] | | | | [...] | | | | | | LAB [facility] | | | | | | [facility] | | | | [facility] | | | | | | BLOOD | | | | | | CENTER | | + + + + + + | Rh Type | Positive | | REFERENCE | | | | | | LAB [facility] | | | | | | [facility] | | | | | | [facility] | | | | | | BLOOD | | | | | | CENTER | | + + + + + + | Antibody | NegativeComment: Patient | | REFERENCE | | | Screen | is remote crossmatch | | LAB [facility] | | | | eligible | | [...] + + + | Specimen Expiration Date: [id number] | REFERENCE LAB | | | [facility] | | | [facility] | | | [facility] | + + + + + + + + | Performing | Address | City/State/Zipcode | Phone Number | | Organization | | | | + + + + + | REFERENCE [facility] | [address] | [place] [address] | [phone] | | [facility] | | | | | [facility] [...] + + | OLEGARIO MIRANDA | [address] | [place] [address] | | | [facility] | [...] + + | OLEGARIO MIRANDA | [address] | [place] [address] | | | [facility] | | | | | LABORATORY | | | | + + + + + Hemoglobin A1C (10/31/2016 4:09 PM PDT) + + + + + + | Component | Value | Ref Range | Performed | Pathologist | | | | | At | Signature | + + + + + + | Hemoglobin | 5.4Comment: The Burmese | 4.3 - 6.1 % | [facility] [...] + + | [facility] | [address] | [place] [address] | | | [facility] | | | | [...] | 0.10 | 0.00 - 0.10 | PAG[place] | | | Basophils | | K/uL [...] + + | OLEGARIO MIRANDA | [address] | [place] [address] | | | [facility] | | | | | [...] (H) | 21 - 28 mmol/L | [facility] | | | | | [facility] | | | | | | HEART | | | | | | MEDICAL | | | | | | CENTER | | | | | | LABORATORY | | + + + + + + | Glucose | 93Comment: Burmese | 65 - 99 mg/dL | [place] | | | | Diabetes Association | [...] + + | OLEGARIO MIRANDA | [address] | [place] [address] | | | [facility] | | | | [...] | TRACEMASTER | | Duration:148 msP Horizontal Stoddard:24 degP Front Stoddard:69 degQ Onset:512 | | | msQRSD Interval:84 msQT Interval:424 msQTcB:406 msQTcF:412 msQRS | | | Horizontal Stoddard:4 degQRS Stoddard:36 degI-40 Horizontal Stoddard: degI-40 | | | Front Stoddard:30 degT-40 Horizontal Stoddard:-7 degT-40 Front Stoddard:36 degT | | | Horizontal Stoddard:60 degT Wave Stoddard:61 degS-T Horizontal Stoddard:108 degS-T | | | Front Stoddard:89 degSeverity:- ABNORMAL ECG -INTERP:SINUS | | | RHYTHMINTERP:CONSIDER LEFT VENTRICULAR HYPERTROPHYElectronically | | | signed by: Ramin PEREZ 11-01-2016 06:15:12 | | |QTcB:406 ms | | |QTcF:412 ms | | |QRS Horizontal Stoddard:4 deg | | |QRS Stoddard:36 deg | | |I-40 Horizontal Stoddard: deg | | |I-40 Front Stoddard:30 deg | | |T-40 Horizontal Stoddard:-7 deg | | |T-40 Front Stoddard:36 deg | | |T Horizontal Stoddard:60 deg | | |T Wave Stoddard:61 deg | | |S-T Horizontal Stoddard:108 deg | | |S-T Front Stoddard:89 deg | | |Severity:- ABNORMAL ECG - | | |INTERP:SINUS RHYTHM | | |INTERP:CONSIDER LEFT VENTRICULAR HYPERTROPHY | | |Electronically signed by: Ramin PEREZ 11-01-2016 06:15:12 | | + + + + + + + + | Performing | Address | City/State/Zipcode | Phone Number | | Organization | | | | + + + + + | [facility] | [address] | [place] [address] | [phone] | + + + + + MRSA [...] + + | OLEGARIO MIRANDA | [address] | 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
--- OUTSIDE RECORDS SUMMARY | ~2019-05-18 | XMS | Encounter Summary ---
Demographics + + + | Address | [address] | | | [place] [address] | + + + | Home Phone [...] | Author | [facility] | | | and [place] | + + + | Organization | [facility] | [...] | | | | | [place] [address] | | + + + + + | Hunter Jackson | ECON | [place] | | + + + + + | Wes Jackson | ECON | [place], [place] | | + + + + + | Oziel Jackson | ECON | [place], [place] | | + + + + + Care Team Providers + +------+ + | Care Millinery Blocker Name | Role | Phone | + [...] [facility] [place] | Ulysses Jensen, | [facility] arthritis | | 2015 | Visit | ORTHOPEDIC SURGERY | MD [address] [facility] | (Primary Dx) | | | | [address] [facility] | [place] | | | | | [place] | [address] | | | | | [address] | | | | | | [phone] | | | +--------+---------+ + + + [...] [place]REET[place] | | | | | | [address] | | | | | | | | +--------+---------+ + + + | 11/21/ | Office | Cardiology | Yesi, | | | 2020 | Visit | | JOSE ALBERTO Linder [address] | | | | | | [place], | | | | | | [place] [address] | | | | | | [phone] | | | | | | | | +--------+---------+ + + + documented as of this encounter Visit Diagnoses + + | Diagnosis | + + | [facility] arthritis - Primary Unspecified arthropathy, hand | + + documented in this encounter"
--- OUTSIDE RECORDS SUMMARY | ~2019-05-18 | XMS | Encounter Summary ---
Demographics + + + | Address | [address] | | | [place] [address] | + + + | Home Phone [...] [facility]ly [facility] | | | and [place] | + + + | Organization | [facility] | [...] | | | | | [place] [address] | | + + + + + | Hunter Jackson | ECON | [place] | | + + + + + | Wes Jackson | ECON | [place], [place] | | + + + + + | Oziel Jackson | ECON | [place], [place] | | + + + + + Care Team Providers + +------+ + | Care Fuel Cell Repairer Name | Role | Phone | + [...] + + | 04/14/ | Telephone | [facility] | Rodolfo Cruz, | Back Pain | | 2013 | | MEDICINE [address] [place] [address] | MD [address] | | | | | [place] | [place] | | | | | [place] [address] | [address] | | | | | [phone] | | | +--------+ + + + [...] [address] | | | | | | [place] | | | | | | [place] [address] | | | | | | [phone] | | | | | | | | +--------+---------+ + + + documented as of this encounter Visit Diagnoses Not on filedocumented in this encounter"
--- OUTSIDE RECORDS SUMMARY | ~2019-05-18 | XMS | Encounter Summary ---
Demographics + + + | Address | [address] | | | [place] [address] | + + + | Home Phone [...] Author | [facility] | | | and [place] | + + + | Organization | [facility] [...] | | | | | [place] [address] | | + + + + + | Hunter Jackson | ECON | [place] | | + + + + + | Wes Jackson | ECON | [place], [place] | | + + + + + | Oziel Jackson | ECON | [place], [place] | | + + + + + Care Team Providers + +------+ + | Care Bobbin Washer Name | Role | Phone | + +------+ + | Rodolfo Cruz MD | PCP | | + +------+ + Encounter Details +--------+ + + + + | Date | Type | Department | Care Team | Description | +--------+ + + + + | 11/30/ | Abstract | [facility] | Rodolfo Cruz, | | | 2013 | | MEDICINE [address] [place] [address] | MD [address] | | | | | [facility] | [place] | | | | | [place] [address] | [address] | | | | | [phone] | | | +--------+ + + + [...] [place] | | | | | | [address] | | | | | | | | +--------+---------+ + + + | 11/21/ | Office | Cardiology | Yesi, | | | 2019 | Visit | | JOSE ALBERTO [address]inder [address] | | | | | | [place], | | | | | | [place] [address] | | | | | | [phone] | | | | | | | [...]
--- OUTSIDE RECORDS SUMMARY | ~2019-05-18 | XMS | Encounter Summary ---
Demographics + + + | Address | [address] | | | [place] [address] | + + + | Home Phone [...] + | Author | [facility] | | | and [place] | + + + | Organization | [facility] | | | [...] [place] | | | | | [place] [address] | | + + + + + | Hunter Jackson | ECON | [place] | | + + + + + | Wes Jackson | ECON | [place], [place] | | + + + + + | Oizel Jackson | ECON | [place], [place] | | + + + + + Care Team Providers + +------+ + | Care Hip Hop Performers Name | Role | Phone | + [...] | | | | | region | [address] | [address] | | | | | Stenosis of | Phone: | 15 | | | | | cervical | [phone] | [place], [place] | | | | | spine DDD | Fax: | [address] | | | | | (degenerativ | [phone] | Phone: | | | | | e disc | | [phone] | | | | | disease), | | Fax: | | | | | cervical | | [phone] | | | | | Chronic | [...] + + | 07/22/ | Office | [facility] | Harhsa Selby | Chronic midline | | 2018 | Visit | PHYSIATRY [address] | [address] | thoracic back pain | | | | [place], | [address] [place] [address] | (Primary Dx); | | | | [place] [address] | [address] | Cervical | | | | [phone] | | radiculopathy; | | | | [...] encounter Patient Instructions Patient Instructions Venita Ray, Fast Food Assistant Restaurant Manager - 07/22/2017 10:30 AM PDTDiscus s with your primary care provider about the use of Flector patch. Physical therapy has been prescribed. Please participate in physical therapy. If you have not be contacted for an appointment with physical therapy within one week, please contact [facility]. Once you have completed physical therapy please continue the home exercise progr am as outline by physical therapy, indefinitely. Return to clinic if symptoms worsen or fail to improve. documented in this encounter Progress Notes Harsha Selby MD - 07/22/2017 10:30 AM PDT Harsha Selby MD [address] [facility], [address] [place] [address] FAX: PHYSICAL MEDICINE AND REHABILITATION [...] has no apparent deficits with short or detention memory. The cranial nerves appear grossly intact. 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
--- OUTSIDE RECORDS SUMMARY | ~2019-05-18 | XMS | Encounter Summary ---
Demographics + + + | Address | [address] | | | [place] [address] | + + + | Home Phone [...] Author | [facility] | | | and [place] | + + + | Organization | [facility] | | | and [place] | + + + | Address | Unknown | + + + | Phone | Unavailable | + + + Support + + + + + | Name | Relationship | Address | Phone | + + + + + | Osmin Jackson | ECON | [address] | | | | | [place] [address] | | + + + + + | Hunter Jackson | ECON | [place] | | + + + + + | Wes Jackson | ECON | [place], [place] | | + + + + + | Oziel Jackson | ECON | [place], [place] | | + + + + + Care Team Providers + +------+ + | Care Client Care Coordinator Name | Role | Phone | [...] + | 04/28/ | [facility] [place] | Ulysses Jensen, | Arthritis of | | 2017 | Visit | ORTHOPEDIC SURGERY | MD Danny FLANNERY | carpometacarpal | | | | [address] | [place] [address] | (CMC) joint of right | | | | [place] | [address] | thumb (Primary Dx); | | | | [address] | | Rotator cuff tear | | | | [phone] | | arthropathy of right | | [...] FLANNERY | | | | | | [place], [place] | | | | | | [id number] | | | | | | | | +--------+---------+ + + + | 11/21/ | Office | Cardiology | Yesi, | | | 2019 | Visit | | JOSE ALBERTO Linder [address] | | | | | | [place], | | | | | | [place] [address] | | | | | | [phone] | | | | | | | [...]
--- OUTSIDE RECORDS SUMMARY | ~2019-05-18 | XMS | Encounter Summary ---
Demographics + + + | Address | [address] | | | [place] [address] | + + + | Home Phone [...] | [facility] | | | and [place] | + + + | Organization | [facility] [...] [place] | | | | | [place] [address] | | + + + + + | Hunter Jackson | ECON | [place] | | + + + + + | Wes Jackson | ECON | [place], [place] | | + + + + + | Oziel Jackson | ECON | [place], [place] | | + + + + + Care Team Providers + +------+ + | Care Glass Cutter Helper Name | Role | Phone | + +------+ + | Gunderson, Kellie PA | PCP | | + +------+ + Reason for Visit + + + | Reason | Comments | + + + | Skin Redness With | | | Swelling | | + + + Encounter Details +--------+ + + + + | Date | Type | Department | Care Team | Description | +--------+ + + + + | 11/16/ | Telephone | [facility] | Jesse Rodriguez, | Skin Redness With | | 2017 | | [facility] | PA-C [address] | Swelling | | | | [facility] [address] | | | [address] | [place] [address] | | | | | [place], [place] | [phone] | | | | | [address] | | | | | | [phone] | | | +--------+ + + + [...] | | | | | | [place] [address] | | | | | | [phone] | | | | | | | | +--------+---------+ + + + documented as of this encounter Visit Diagnoses Not on filedocumented in this encounter"
--- OUTSIDE RECORDS SUMMARY | ~2019-05-18 | XMS | Encounter Summary ---
Demographics + + + | Address | [address] | | | [place] [address] | + + + | Home Phone [...] Author | [facility] | | | and [place] | + + + | Organization | [facility] | | [...] | | | | | [place] [address] | | + + + + + | Hunter Jackson | ECON | [place] | | + + + + + | Wes Jackson | ECON | [place], [place] | | + + + + + | Oziel Jackson | ECON | [place], [place] | | + + + + + Care Team Providers + +------+ + | Care Mechanic Welder Truck Driver Name | Role | Phone | + +------+ + PCP | Unavailable | + +------+ + Encounter Details +--------+ + + + + | Date | Type | Department | Care Team | Description | +--------+ + + + + | 01/09/ | Hospital | [facility] | | | | 1998 | Encounter | MED CTR GENERIC OP | | | | | | CONV DEPT [address] | | | | | | [place], | | | | | | [place] [address] | | | | | | [phone] | | | +--------+ + + + [...] | | | | | | [place] [address] | | | | | | [phone] | | | | | | | | +--------+---------+ + + + documented as of this encounter Visit Diagnoses Not on filedocumented in this encounter"
--- OUTSIDE RECORDS SUMMARY | ~2019-05-18 | XMS | Encounter Summary ---
Demographics + + + | Address | [address] | | | [place] [address] | + + + | Home Phone [...] | [facility] | | | and [place] | + + + | Organization | 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 | [place], [place] | Phone: | | | | | Procedures | [address] | [phone] | | | | | CT Chest w | Phone: | Fax: | | | | | Contrast | [phone] | [phone] | | | | | 02/16/14 | Fax: | | | | | | | [phone] | | +--------+--------+ + + + + [...] + + | 12/08/ | Office | [facility] | Rodolfo Cruz, | Pulmonary nodules | | 2013 | Visit | MEDICINE [address] [place] [address] | [address] | (Primary Dx); | | | | [place] | [address] | Anemia; UGI bleed; | | | | [place] [address] | [address] | 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; | | | | [...] 06/05/2010 and no changes required: Born in [facility] since 1965 Marital status: Children: 6, 5 living, 10 grandchildren 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
--- OUTSIDE RECORDS SUMMARY | ~2019-05-18 | XMS | Encounter Summary ---
Demographics + + + | Address | [address] | | | [place] [address] | + + + | Home Phone | | + + + | Preferred Language | Unknown | + + + | Marital Status | | + + + | Hindu Affiliation | Unknown | + + + | Race | Unknown | + + + | Ethnic Group | Unknown | + + + Author + + + | Author | [facility] | | | and [place] | + + + | Organization | [facility] | | [...] | | | | | [place] [address] | | + + + + + | Hunter Jackson | ECON | [place] | | + + + + + | Wes Jackson | ECON | [place], [place] | | + + + + + | Oziel Jackson | ECON | [place], [place] | | + + + + + Care Team Providers + +------+ + | Care Upper Inspector Name | Role | Phone | + +------+ + | Rodolfo Cruz MD | PCP | | + +------+ + Encounter Details +--------+ + + + + | Date | Type | Department | Care Team | Description | +--------+ + + + + | 03/23/ | Abstract | [facility] | Zion Davis MD | | | 2011 | | OTOLARYNGOLOGY [address] | [address] [facility] | | | | | [address] [facility] [address] | [address], | | | | | [place] | [place] [address] | | | | | [address] | [phone] | | | | | [phone] | | | +--------+ + + + [...] STREETER | | | | | | [address] | | | | | | | | +--------+---------+ + + + | 11/21/ | Office | Cardiology | Yesi, | | | 2019 | Visit | | JOSE ALBERTO [address] | | | | | | [place], | | | | | | [place] [address] | | | | | | [phone] | | | | | | | | +--------+---------+ + + + documented as of this encounter Visit Diagnoses Not on filedocumented in this encounter"
--- OUTSIDE RECORDS SUMMARY | ~2019-05-18 | XMS | Encounter Summary ---
Demographics + + + | Address | [address] | | | [place] [address] | + + + | Home Phone [...] Author | [facility] | | | and [place] | + + + | Organization | [facility] | [...] [place] | | | | | [place] [address] | | + + + + + | Hunter Jakcson | ECON | [place] | | + + + + + | Wes Jackson | ECON | [place], [place] | | + + + + + | Oziel Jackson | ECON | [place], [place] | | + + + + + Care Team Providers + +------+ + | Care Sausage Mixer Name | Role | Phone | + +------+ + | Kellie Gunderson | PCP | | + +------+ + Reason for Visit + + + | Reason | Comments | + + + | Follow-up | | + + + | Hypertension | | + + + | Carotid Artery | | | Disease | | + + + | Chest Pain | | + + + Encounter Details +--------+---------+ + + + | Date | Type | Department | Care Team | Description | +--------+---------+ + + + | 04/28/ | Office | [facility] | Yesi, | Hyperlipidemia, | | 2017 | Visit | CARDIOLOGY [address] | JOSE ALBERTO [address] | mixed (Primary Dx); | | | | [place], | [place], | Valvular heart | | | | [place] [address] | [place] [address] | disease; Murmur; | | | | [phone] | [phone] | Essential | | | | | [...] involving | | | | | | seminole coronary | | | | | | artery of seminole | | | | | | heart with unstable | | | | | | angina pectoris | | | | | | (HCC); Transient | | | | | | [...] + | Blood Pressure | 130/70 | 04/28/2017 2:57 PM | | | | | PST | | + + + + + | Pulse | 72 | 04/28/2017 2:57 PM | | | | | PST | | + + + + + | Temperature | - | - | | + + + + + | Respiratory Rate | 16 | 04/28/2017 2:57 PM | | | | | PST | | + + + + + | Oxygen Saturation | - | - | | + + + + + | Inhaled Oxygen | - | - | | | Concentration | | | | + + + + + | Weight | 78.9 kg (174 lb) | 04/28/2017 2:57 PM | | | | | PST | | + + + + + | Height | 162.6 cm (5' 4") | 04/28/2017 2:57 PM | | | | | PST | | + + + + + | Body Mass Index | 29.87 | 04/28/2017 2:57 PM | | | | | PST | | + + + + + documented in this encounter Patient Instructions Patient Instructions Joanna Tan RN - 04/28/2017 3:00 PM JHONY's: Date: Check-In Time: Where to Check In: Follow up appointment: 4-6 months Provider: JOSE ALBERTO Pham Date: Check-In Time: documented in this encounter Progress Notes Niyah Key ARNP - 04/28/2017 3:00 PM PSTFormatting of this note might be differen t from the original. PATIENT NAME: Soumya Jackson : 1935: AGE: 81 y.o. PRIMARY CARE: FLORA Morgan OUTPATIENT FOLLOW UP VISIT Date of Service: 04/28/2017 HISTORY OF PRESENT ILLNESS: Soumya Jackson is a 81 y.o. female with a history of coronary artery disease post CABG 3 on 11/01/16, moderate aortic valve insufficiency, essential hypertension, osteoarthritis, h ypothyroidism, dyslipidemia, elevated CRP. She was last seen 02/03/17 at which time she was told the current medical regimen is effecti ve; continue present plan and medications. She could have her atorvastatin increased and he r lipid profile rechecked Since that time, she has been having a lot of issues with joint pain. She has had a fair en ergy level. She tries to stay active. She has been doing aquatic exercises 3 times a week a t the health club. She has been having a lot of problems with sleeping and she is only getti ng 2-4 hours a night. She feels very tired in the mornings. She enjoys watercolor painting with her friend in her spare time. She has had atypical chest discomfort that does not occu r with exertion. She thinks this may be part of her chest incision. She has not noticed salvatore rtness of breath. She has not had any lightheadedness or dizziness. She has not noticed pa lpitations. She has noticed mild swelling at ankles by the end of the day that is resolved in the morning, which has been stable for her. She sleeps on 1 pillow at night without any shortness of breath. Her PCP is coordinating a sleep study for her. MEDICAL, SURGICAL, AND PERSONAL HISTORY Past Medical, [...] cervical Cervical radiculopathy Coronary artery disease involving seminole coronary artery of seminole heart with unstable angina pectoris Stress hyperglycemia [...] Review of Systems Constitutional: Positive for malaise/fatigue. Negative for diaphoresis. HENT: Positive for nosebleeds (yesterday ). Respiratory: Positive for cough. Negative for shortness of breath. Cardiovascular: Positive for chest pain (pressure , burning pain ). Musculoskeletal: Negative for myalgias. Neurological: Positive for tingling (left side), sensory change (feeling cold and shivery i nside) and weakness. Negative for dizziness, tremors and headaches. OBJECTIVE: PHYSICAL EXAM There were no vitals taken for this visit. Physical Exam Constitutional: She appears well-developed and [...] and 2+ on the left side. Well healed sternal and leg incisions Pulmonary/Chest: Effort normal and breath sounds normal. [...] or performed during the hospital encounter of 11/01/16 ECG 12 lead Narrative HEART RATE:74 bpm RR Interval:811 ms Atrial Rate:74 ms P-R Interval:140 ms P Duration:140 ms P Horizontal [place]:-43 deg P Front [place]:60 deg Q Onset:514 ms QRSD Interval:78 ms QT Interval:384 ms QTcB:426 ms QTcF:412 ms QRS Horizontal [place]:3 deg QRS [place]:21 deg I-40 Horizontal [place]:-8 deg I-40 Front [place]:15 deg T-40 Horizontal [place]:-6 deg T-40 Front [place]:22 deg T Horizontal [place]:44 deg T Wave [place]:12 deg S-T Horizontal [place]:42 deg S-T Front [place]:22 deg Severity:- BORDERLINE ECG - INTERP:SINUS RHYTHM INTERP:PROBABLE LEFT ATRIAL ABNORMALITY Electronically signed by: PATRICK BURKETT 11-09-2016 13:17:14 LAB RESULTS reviewed during visit today primarily from [facility]: LIPID Lab Results Component Value [...] PLTEX 370 09/18/2016 I reviewed records from [facility] for office visit on 02/03/2017 w hich is summarized in the HPI. Above data and testing is reviewed this visit; testing below is historical data unless othe rwise specified. ASSESSMENT: 1. Coronary artery disease A. Seen at [facility] they had EKG and sent her home stating it was GERD B. Seen in the emergency room at [facility] for chest pain. She was schedule for stre ss test and discharged home. C. Stress Test 05/16/16, is maximal asymptomatic stress test, [facility] very poor function status, achieving [...] central AI, no , trace TR, trace FL, normal aorta other than mild c alcification at ST junction, normal diameter, normal PA, no effusions. H. Coronary artery bypass surgery x 3 11/01/2016 shows VERDUZCO to LAD, saphenous vein graft t o diagonal, saphenous vein graft to right coronary artery, endoscopic vein harvest, left gre ater saphenous vein by Dr. Loo. I. Today, patient has no angina or dyspnea. She is exercising on a regular basis. She con tinues to pacheco with insomnia and back pain issues. She is walking daily and goes to PT onc e a week and doing aquatics. There is no palpitations, dizziness or lightheadedness. Patie nt can sleep on one pillow at night without difficulty breathing. There is no signs and symp toms of overt congestive heart failure.She is in a class I of [employer] f unctional class.on physical examination there is no sign of fluid [...] Lipitor after open heart surgery. PLAN: 1. The current medical regimen is effective; continue present plan and medications. 2. She will follow up in 4 months, or sooner with concerns. Portions of this chart may have been created with [employer] voice recognition software. Occasi onal wrong-word or [...] STREETER | | | | | | [id number] | | | | | | | | +--------+---------+ + + + | 11/21/ | Office | Cardiology | Yesi, | | 2019 | Visit | | JOSE ALBERTO [address] | | | | | | [place], | | | | | | [place] [address] | | | | | | [phone] | | | | | | | | +--------+---------+ + + + documented as of this encounter Results VAS Segmental Pressures Legs (07/02/2017 2:26 PM PST) + + | Specimen | + + | | + + + + + | Narrative | Performed At | + + + | VAS SEGMENTAL PRESSURES LEGS 07/02/2017 1:10 PM HISTORY: CAD. | [facility] | | COMPARISON: None. PROTOCOL: Blood pressure measurements of the | | | upper extremities and lower extremities were obtained with Doppler | | | probe and sphygmomanometer. FINDINGS: Right: Brachial: 126, | | | Index High thigh: 169, 1.28 Calf: 160, 1.21 Ankle, posterior | | | tibial: Greater than 254, not calculated Ankle, dorsalis pedis: 182, | | | 1.38, normal Pulses: Femoral: 2+ Popliteal: 2+ Dorsalis pedis: | | | 2+ Posterior tibial: 2+ Left: Brachial: 132, Index High thigh: | | | 193, 1.46 Calf: 144, 1.09 Ankle, posterior tibial: Greater than 254, | | | not calculated Ankle, dorsalis pedis: 171, 1.30, normal Pulses: | | | Femoral: 2+ Popliteal: 2+ Dorsalis pedis: 2+ Posterior tibial: 2+ | | | On pulse plethysmography, normal pulse volume tracings are seen | | | throughout. Segmental blood pressures: No significant discrepancy | | | between levels is seen in the segmental blood pressures of either | | | lower extremity. IMPRESSION - Normal segmental pressures of lower | | | extremities. [facility] Greater than 1.4: | | | Calcification/vessel hardening, refer to vascular specialist 1.0 - | | | 1.4: Normal 0.9 - 1.0: Acceptable 0.8 - 0.9: Some arterial disease, | | | treat risk factors 0.5 - 0.8: Moderate arterial disease, refer to | | | vascular specialist Less than 0.5: Severe arterial disease, refer to | | | vascular specialist Dictated and Signed by: Faustino Olivas MD | | | Electronically signed: 07/02/2017 2:57 PM | | + + + + + | Procedure Note | + + | Rem[place], Rad Results In - 07/02/2017 3:00 PM PST VAS SEGMENTAL PRESSURES LEGS 07/02/2017 | | 1:10 PM HISTORY: CAD.COMPARISON: None.PROTOCOL: Blood pressure measurements of the upper | | extremities and lowerextremities were obtained with Doppler probe and | | sphygmomanometer.FINDINGS:Right:Brachial: 126, IndexHigh thigh: 169, 1.28Calf: 160, | | 1.21Ankle, posterior tibial: Greater than 254, not calculatedAnkle, dorsalis pedis: 182, | | 1.38, normalPulses:Femoral: 2+Popliteal: 2+Dorsalis pedis: 2+Posterior tibial: | | 2+Left:Brachial: 132, IndexHigh thigh: 193, 1.46Calf: 144, 1.09Ankle, posterior tibial: | | Greater than 254, not calculatedAnkle, dorsalis pedis: 171, 1.30, normalPulses:Femoral: | | 2+Popliteal: 2+Dorsalis pedis: 2+Posterior tibial: 2+On pulse plethysmography, normal | | pulse volume tracings are seen throughout.Segmental blood pressures: No significant | | discrepancy between levels is seen inthe segmental blood pressures of either lower | | extremity.IMPRESSION -Normal segmental pressures of lower extremities.[facility] | | MedicineGreater than 1.4: Calcification/vessel hardening, refer to vascular | | specialist1.0 - 1.4: Normal0.9 - 1.0: Acceptable0.8 - 0.9: Some arterial disease, treat | | risk factors0.5 - 0.8: Moderate arterial disease, refer to vascular specialistLess than | | 0.5: Severe arterial disease, refer to vascular specialistDictated and Signed by: Faustino | | MD Brendon Electronically signed: 07/02/2017 2:57 PM | | | |Pulses: | |Femoral: 2+ | |Popliteal: 2+ | |Dorsalis pedis: 2+ | |Posterior tibial: 2+ | | | |Left: | |Brachial: 132, Index | |High thigh: 193, 1.46 | |Calf: 144, 1.09 | |Ankle, posterior tibial: Greater than 254, not calculated | |Ankle, dorsalis pedis: 171, 1.30, normal | | | |Pulses: | |Femoral: 2+ | |Popliteal: 2+ | |Dorsalis pedis: 2+ | |Posterior tibial: 2+ | | | |On pulse plethysmography, normal pulse volume tracings are seen throughout. | |Segmental blood pressures: No significant discrepancy between levels is seen in | |the segmental blood pressures of either lower extremity. | | | |IMPRESSION - | |Normal segmental pressures of lower extremities. | | | |[facility] | |Greater than 1.4: Calcification/vessel hardening, refer to vascular specialist | |1.0 - 1.4: Normal | |0.9 - 1.0: Acceptable | |0.8 - 0.9: Some arterial disease, treat risk factors | |0.5 - 0.8: Moderate arterial disease, refer to vascular specialist | |Less than 0.5: Severe arterial disease, refer to vascular specialist | | | |Dictated and Signed by: Faustino Olivas MD | | Electronically signed: 07/02/2017 2:57 PM | + + + +---------+ + [...] + + | Coronary artery disease involving seminole coronary artery of seminole heart with unstable | | angina pectoris (HCC) | + + | Transient cerebral ischemia, unspecified type | + + documented in this encounter
--- OUTSIDE RECORDS SUMMARY | ~2019-05-18 | XMS | Encounter Summary ---
Demographics + + + | Address | [address] | | | [place] [address] | + + + | Home Phone [...] | Author | [facility] | | | and [place] | + + + | Organization | [facility] | | | and [place] | + + + | Address | Unknown | + + + | Phone | Unavailable | + + + Support + + + + + | Name | Relationship | Address | Phone | + + + + + | Osmin Jackson | ECON | [address] | | | | | [place] [address] | | + + + + + | Hunter Jackson | ECON | [place] | | + + + + + | Wes Jackson | ECON | [place], [place] | | + + + + + | Oziel Jackson | ECON | [place], [place] | | + + + + + Care Team Providers + +------+ + | Care Lure Maker Name | Role | Phone | [...] + + | 04/01/ | Office | [facility] | Rodolfo Cruz, | Asthma (Primary Dx); | | 2012 | Visit | [facility]IC[facility] [place] | [address] | Hypertension; | | | | [address] | [place] | Hyperlipidemia; | | | | [place] | [address] | GERD; Osteoarthritis | | | | [address] | |Osteoarthritis | | | | [phone] | | | +--------+---------+ + + + [...] is no ear pain. She went to [place]. 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 | [address] | [place], [place] | [phone] | | [facility] | | [address] | | | - LABORATORY | | | | + + + + + | [facility] | [address] | [place], [place] | | | [facility] | | [address] | | | - LABORATORY | | [...] [address] | [place] | [phone] | | [facility] | | [address] | | | - LABORATORY | | | | + + + + + | [facility] | [address] | [place] | | | [facility] | | [address] | | | - LABORATORY | | [...]
--- OUTSIDE RECORDS SUMMARY | ~2019-05-18 | XMS | Encounter Summary ---
Demographics + + + | Address | [address] | | | [place] [address] | + + + | Home Phone | | + + + | Preferred Language | Unknown | + + + | Marital Status | | + + + | Amish Affiliation | Unknown | + + + | Race | Unknown | + + + | Ethnic Group | Unknown | + + + Author + + + | Author | [facility] | | | and [place] | + + + | Organization | [facility] | | [...] | | | | | [place] [address] | | + + + + + | Hunter Jackson | ECON | [place] | | + + + + + | Wes Jackson | ECON | [place], [place] | | + + + + + | Oziel Jackson | ECON | [place], [place] | | + + + + + Care Team Providers + +------+ + | Care Promotion Specialist Name | Role | Phone | [...] Description | +--------+--------+ + + + | 03/08/ | Refill | [facility] [place] [facility] | Rodolfo Cruz, | Medication Refill | | 2012 | | [facility] [place] | [address] | | | | | [address] | [place] | | | | | [place] | [address] | | | | | [address] | | | | | | [phone] | | | +--------+--------+ + + + [...] | | | | | | [place] [address] | | | | | | [phone] | | | | | | | | +--------+---------+ + + + documented as of this encounter Visit Diagnoses Not on filedocumented in this encounter"
--- OUTSIDE RECORDS SUMMARY | ~2019-05-18 | XMS | Encounter Summary ---
Demographics + + + | Address | [address] | | | [place] [address] | + + + | Home Phone | | + + + | Preferred Language | Unknown | + + + | Marital Status | | + + + | Bahai Affiliation | Unknown | + + + | Race | Unknown | + + + | Ethnic Group | Unknown | + + + Author + + + | Author | [facility] | | | and [place] | + + + | Organization | [facility] [...] | | | | | [place] [address] | | + + + + + | Hunter Jackson | ECON | [place] | | + + + + + | Wes Jackson | ECON | [place], [place] | | + + + + + | Oziel Jackson | ECON | [place], [place] | | + + + + + Care Team Providers + +------+ + | Care Guardian Family Member Name | Role | Phone | [...] | Back pain | | [address] | | | | | Hypothyroidi | | [place], | | | | | sm | | [place] | | | | | Hypertension | | [address] | | | | | Asthma GI | | Phone: | | | | | bleed | | [phone] | | | | | Troponin | | Fax: | | | | | level | | [phone] | | | | | elevated | [...] + + | 11/04/ | Surgery | [facility] | Samm Pandya, | EGD IP 449 | | 2013 | | MED CTR MP INTRA OP | MD [address] | | | | | [address] | [address], | | | | | [place] | [place] [address] | | | | | [address] | [phone] | | | | | [phone] | | | +--------+---------+ + + + [...] might be different fro m the original. [facility] DISCHARGE SUMMARY Pt. Name/Age/: Soumya Jackson 78 [...] problems to display. 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 [DISCONTINUED] [employer] GARLIC OIL PO CAPS Take 1250 mg by mouth daily. [DISCONTINUED] diclofenac (VOLTAREN) 75 mg EC tablet TAKE ONE TABLET BY MOUTH TWICE A D AY 180 tablet 1 [DISCONTINUED] Hdncuodyezu-Trrgcijmf-Xel C-Mn ([employer] GLUCOSAMINE-CHONDROITIN) TABS Take 1 tablet by mouth 2 times daily. [DISCONTINUED] KRILL OIL 1000 MG CAPS Take 1,000 mg by mouth Daily. [DISCONTINUED] metaxalone (SKELAXIN) 800 mg tablet Take 800 mg by mouth 3 times daily. 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 Got total 4 PRBC Troponin I above reference range EKG without ischemia. Mild troponin leak but well below threshold for NE. Echo EF 63%, no sig change versus [...] Mamogram and UPEP and Stress Test with peoplesoft fscm developer OK to restart baby ASA NOT restart [...] your friday appt) Contact information: [address] [facility] [phone] Follow up with JOSE ALBERTO Marcelo. (Have Dr Cruz arrange an appt to see her in about a month from now) Contact information: [place] [phone] Condition: Patient being discharged with condition improved Dr Pandya recommends double dose of PPI for 1 month then single dose Thus Prilosec 20 mg bid X 1 month then can lower to 20 mg daily Diet: Regular Greater than 30 minutes were spent on discharge and coordination of post-hospital care. Electronically signed by: Yoel Carranza MD, 11/05/2013 13:26 [facility] Portions of this chart may have been created with [employer] voice recognition software. Occasi onal wrong-word or [...] might be different fro m the original. [facility] PROGRESS NOTE Patient: Soumya Jackson : 1935: Age: 78 y.o. MedRec: [id number] Admission date: 11/03/2013 Hospital day # : [...] -- No results found for this basename: PHART:3,PO2ART:3,BOF9YVU:3,ANH1BJE:3,BEART:3,T1LLTINX:3 in the last 168 hours No results found for this basename: SPECSOURCE:3,PHPOCB:3,DBCBR9ZK:3,IPOX2YW:3,HCO3:3,TCO2: 3,BEART:3,BE:3,SXMW1LLI:3 in the last 168 hours Point of [...] troponin leak but well below threshold for NE. Echo EF 63%, no sig change versus [...] Mamogram and UPEP and Stress Test with peoplesoft fscm developer OK to restart baby ASA NOT restart Voltaren Advise appt with Merissa in GI clinic in about 1 month. Yoel Carranza MD 11/05/2013 13:14 [facility] Dot phrase reference: VSHOSP (VS in table, last 24 hours) MEYLAB (various labs to pull in) DT (date and time) LABRCNTIP[K:3,Na:3 (last 3 sets of labs using potassium and sodium as examples) HGB HCT PLT INR GLU POCGLU Na K BUN CREA, CALCIUM TROPONINI BNP DIGOXIN DDIMERQUANT Portions of this chart may have been created with [employer] voice recognition software. Occasi onal wrong-word or [...] 1 unit of PRBC transfused without reaction. [place] 1 tab given for lower back pain w ith good relief of pain. No active bleeding noted. Rodolfo Nicholas RRT - 11/04/2013 9:15 AM PDTPt not in roomEle ctronically signed by Rodolfo Montes RRT at 11/04/2013 2:44 PM Yoel Plaza MD - 7:17 AM PDT [facility] PROGRESS NOTE Patient: Soumya Jackson : 1935: Age: 78 y.o. MedRec: [id number] Admission date: 11/03/2013 Hospital day # : [...] -- No results found for this basename: PHART:3,PO2ART:3,OYJ8ZGF:3,BFU4MHF:3,BEART:3,V1TPSRFV:3 in the last 168 hours No results found for this basename: SPECSOURCE:3,PHPOCB:3,QVFBX8AV:3,WDGN4PN:3,HCO3:3,TCO2: 3,BEART:3,BE:3,DMVP2CBF:3 in the last 168 hours Point of [...] troponin leak but well below threshold for NE. Echo EF 63%, no sig change versus [...] OK Bone Scan tomorrow (maybe) trace from [place] Discussed mild trop leak and consideration for outpatient Currently wearing her SCDs Dr Pandya said I could start low dose ASA and I told patient will start tomorrow (I will mary it labs though) Yoel Carranza MD 11/04/2013 7:17 [facility] Dot phrase reference: VSHOSP (VS in table, last 24 hours) MEYLAB (various labs to pull in) DT (date and time) LABRCNTIP[K:3,Na:3 (last 3 sets of labs using potassium and sodium as examples) HGB HCT PLT INR GLU POCGLU Na K BUN CREA, CALCIUM TROPONINI BNP DIGOXIN DDIMERQUANT Portions of this chart may have been created with [employer] voice recognition software. Occasi onal wrong-word or [...] 2019 | Visit | | MD Danny [address] | | | | | | [place] | | | | | | [address] | | | | | | | | +--------+---------+ + + + | 11/21/ | Office | Cardiology | Yesi, | | 2019 | Visit | | JOSE ALBERTO Linder [address] | | | | | | [place] | | | | | | [place] [address] | | | | | | [phone] | | | | | | | [...] + | MISCELLANEOUS LAB | | | [phone] | + +---------+ + + | MISCELANIOUS LAB | | | [phone] | + +---------+ + + CBC with [...] + | [facility] | [address] | [place] | [phone] | | [facility] | | [address] | | | - LABORATORY | | | | + + + + + | [facility] | [address] | [place] | | | [facility] | | [address] | | | - LABORATORY | | [...] | 0.64 | 0.60 - 1.30 | [facility] | | | | | mg/dL | [facility] | | | | | | MEDICAL | | | | | | CENTER - | | | | | | LABORATORY | | + + + + + + | eGFR if not | >60Comment: GLOMERULAR | >=60 | [facility] | | | | FILTRATION | mL/min/1.73m2 | [facility] | | | [place] | RATE,ESTIMATED | | MEDICAL | | | | mL/min/1.81d5Fghf than | | CENTER - | | [...] | 8.7 | 8.3 - 10.5 | [facility] | | | | | mg/dL | [facility] | | | | | | MEDICAL | | | | | | CENTER - | | | | | | LABORATORY | | + + + + + + | BUN/Creatin | 9.4 | | [facility] | | | ine Ratio | | | [facility] | | | | | [...] [address] | [place] | [phone] | | [facility] | | [address] | | | - LABORATORY | | | | + + + + + | [facility] | [address] | [place] | | | [facility] | | [address] | | | - LABORATORY | | [...] + + + | UNIT # | [id number] | | [facility] | | | | [...] St | [place] | | | [facility] | | [address] | | | - BLOOD BANK | [...] + | [facility] | [address] | [place], [place] | [phone] | | [facility] | | [address] | | | - LABORATORY | | | | + + + + + | [facility] | [address] | [place], [place] | | | [facility] | | [address] | | | - LABORATORY | | [...] + + + | UNIT # | [id number] | | [facility] | | | | [...] St | [place] | | | [facility] | | [address] | | | - BLOOD BANK | | | | + + + + + EGD (11/04/2013 8:39 AM PDT) + + | Specimen | + + | | + + + + -+ | Narrative | Performed At | + + -+ | | [facility] | | GastroenterologyPatient Name: Soumya Grimes Date: 11/04/2013 8:39 | [facility] | | AMN: [id number] #: [id number] of : 8Admit | | | Type: InpatientAge: 78[facility]: [facility]Gender: FemaleNote Status: | | | [...] the nurse | | | and the automation technician in the 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 Mental Status [...] | 0Note Initiated On: 11/04/2013 8:39 AM [facility] | | | [facility], [address] [place] [address] | | | [phone] | | | - Non-bleeding erosive gastropathy. [...] On: 11/04/2013 8:39 AM | | | [facility], [address], [place] | | | [address] | | + + -+ + + | Transcriptions | + + | Laura Greenwoodmn - 11/04/2013 12:00 AM PDT | + [...] + + + | UNIT # | [id number] | | [facility] | | | | [...] St | [place] | | | [facility] | | [address] | | | - BLOOD BANK | [...] + | [facility] | [address] | [place] | [phone] | | [facility] | | [address] | | | - LABORATORY | | | | + + + + + | [facility] | [address] | [place] | | | [facility] | | [address] | | | - LABORATORY | | [...] | + + + + + | [facility] | [address] | [place] | [phone] | | [facility] | | [address] | | | - LABORATORY | | | | + + + + + | [facility] | [address] | [place] | | | [facility] | | [address] | | | - LABORATORY | | [...] + | [facility] | [address] | [place] | [phone] | | [facility] | | [address] | | | - LABORATORY | | | | + + + + + | [facility] | [address] | [place] | | | [facility] | | [address] | | | - LABORATORY | | [...] | | | FILTRATION | mL/min/1.73m2 | [facility] | | | [place] | RATE,ESTIMATED | | MEDICAL | | | | mL/min/1.25q4Fbik than | | CENTER - | | [...] [address] | [place] | [phone] | | [facility] | | [address] | | | - LABORATORY | | | | + + + + + | [facility] | [address] | [place] | | | [facility] | | [address] | | | - LABORATORY | | [...] + + + | UNIT # | [id number] | | [facility] | | | | [...] St | [place] | | | [facility] | | [address] | | | - BLOOD BANK | [...] + | [facility] | [address] | [place], [place] | [phone] | | [facility] | | [address] | | | - LABORATORY | | | | + + + + + | [facility] | [address] | [place], [place] | | | [facility] | | [address] | | | - LABORATORY | | [...] | | | | | | [employer] | | | | | [...] [address] | [place] | [phone] | | [facility] | | [address] | | | - LABORATORY | | | | + + + + + | [facility] | [address] | [place] | | | [facility] | | [address] | | | - LABORATORY | | [...] [address] | [place] | [phone] | | [facility] | | [address] | | | - LABORATORY | | | | + + + + + | [facility] | [address] | [place] | | | [facility] | | [address] | | | - LABORATORY | | [...] | | | | | | [employer] | | | | | [...] + | Performing | Address | City/State/[facility] | Phone Number | | Organization | | | | + + + + + | [facility] | [address] | [place] | [phone] | | [facility] | | [address] | | | - LABORATORY | | | | + + + + + | [facility] | [address] | [place] | | | [facility] | | [address] | | | - LABORATORY | | [...] [address] | [place] | [phone] | | [facility] | | [address] | | | - LABORATORY | | | | + + + + + | [facility] | [address] | [place] | | | [facility] | | [address] | | | - LABORATORY | | [...] + | [facility] | [address] | [place] | [phone] | | [facility] | | [address] | | | - LABORATORY | | | | + + + + + | [facility] | [address] | [place] | | | [facility] | | [address] | | | - LABORATORY | | | | + + + + + Troponin I (11/03/2013 1:15 PM PDT) + + + + + + | Component | Value | Ref Range | Performed | Pathologist | | | | | At | Signature | + + + + + + | Troponin I | 0.07 (H)Comment: | <0.06 ng/mL | [facility] | | | | Reference | [...] | | | | | | [employer] | | | | | [...] + | [facility] | [address] | [place] | [phone] | | [facility] | | [address] | | | - LABORATORY | | | | + + + + + | [facility] | [address] | [place] | | | [facility] | | [address] | | | - LABORATORY | | [...] + | [facility] | [address] | [place], [place] | [phone] | | [facility] | | [address] | | | - LABORATORY | | | | + + + + + | [facility] | [address] | [place], [place] | | | [facility] | | [address] | | | - LABORATORY | | | | + + + + + ECHO Complete (11/03/2013 12:00 PM PDT) + + | Specimen | + + | | + + + + + | Narrative | Performed At | + + + | [facility] ECHOCARDIOGRAM REPORT | | | STUDY DATE: [...] Carito Maher MD PhD | | | [facility] 11/03/2013 12:17 Administrative Manager: Merlin Dolan, | | | RDMS | | + + + + + | Procedure Note | + + | Ric Maher MD - 11/03/2013 6:59 PM [facility] | | CENTERECHOCARDIOGRAM REPORTSTUDY DATE: 11/03/2013PATIENT NAME: Soumya Daniels: | | 1935MRN: [id number]: [facility]/DIAGNOSIS: Elevated | | troponinA transthoracic echocardiogram [...] PP mmHgLA volume: 54 mLLA index: 28 mL/a5Xxaaci Inflow DT: | | 284 msIVRT: 88 msValsalva: Not neededPWDTI S wave: 8.0 cm/sPWDTI E wave: 6.8 | | cm/sPWDTI A wave: 14.8 cm/sE/A Ratio: 0.46E/E Ratio: 19.52Signed by: Carito Solorio | | MD Nika PhD FACC 11/03/2013 12:17 Administrative Manager: Merlin Dolan RDMS | |Tricuspid valve: normal [...] | |Signed by: Carito Maher MD PhD [facility] | | 11/03/2013 12:17 | | | | | |Administrative Manager: Merlin Dolan RDMS | + + Protein [...] + | [facility] | [address] | [place], [place] | [phone] | | [facility] | | [address] | | | - LABORATORY | | | | + + + + + | [facility] | [address] | [place], [place] | | | [facility] | | [address] | | | - LABORATORY | | [...] | 1.015 | | | | | [place], | | | | | | UA, [...] + | [facility] | [address] | [place], [place] | | | [facility] | | [address] | | | - BLOOD BANK | [...] + | MISCELLANEOUS LAB | | | [phone] | + +---------+ + + | MISCELANIOUS LAB | | | [phone] | + +---------+ + + Troponin I [...] | | | | | | [employer] | | | | | [...] + | Performing | Address | City/State/[facility] | Phone Number | | Organization | | | | + + + + + | [facility] | [address] | [place] | [phone] | | [facility] | | [address] | | | - LABORATORY | | | | + + + + + | [facility] | [address] | [place] | | | [facility] | | [address] | | | - LABORATORY | | [...] mL/min/1.73m2 | [facility] | | | [place] | RATE,ESTIMATED | | MEDICAL | | | | mL/min/1.46f3Klah than | | CENTER - | | [...] [address] | [place] | [phone] | | [facility] | | [address] | | | - LABORATORY | | | | + + + + + | [facility] | [address] | [place] | | | [facility] | | [address] | | | - LABORATORY | | [...] | + + + + + | [facility] | [address] | [place], [place] | [phone] | | [facility] | | [address] | | | - LABORATORY | | | | + + + + + | [facility] | [address] | [place], [place] | | | [facility] | | [address] | | | - LABORATORY | | | | + + + + + documented in this encounter Visit Diagnoses + + | Diagnosis | + + | GI bleed Hemorrhage of gastrointestinal tract, unspecified | + + documented in this encounter
--- OUTSIDE RECORDS SUMMARY | ~2019-05-18 | XMS | Encounter Summary ---
Demographics + + + | Address | [address] | | | [place] [address] | + + + | Home Phone [...] | [facility] | | | and [place] | + + + | Organization | [facility] | | | [...] | | | | | [place] [address] | | + + + + + | Hunter Jackson | ECON | [place] | | + + + + + | Wes Jackson | ECON | [place], [place] | | + + + + + | Oziel Jackson | ECON | [place], [place] | | + + + + + Care Team Providers + +------+ + | Care Business Development Associate Name | Role | Phone | + +------+ + | Rodolfo Curz MD | PCP | | + +------+ + Encounter Details +--------+ + + + + | Date | Type | Department | Care Team | Description | +--------+ + + + + | 10/25/ | Hospital | [facility] | Rodolfo Cruz, | History of | | 2014 | Encounter | MED CTR LABORATORY | MD Raya Zuleta 2ND AVGabriel | hepatitis; Pulmonary | | | | [address] [place] | [place], [place] | nodules; Other | | | | [place], [place] | [address] | specified | | | | [address] | | hypothyroidism; | | | | [phone] | | Essential | | | | | | hypertension | +--------+ + + + + Social [...] Take 1 tablet by | 30 | 5 | 10/18/19 | | | (LIPITOR) 10 mg | [...] tablet by | 90 | 0 | 08/25/19 | | | (LUNESTA) 2 MG | [...] Take 1 tablet by | 30 | 5 | 10/18/19 | | | hydrochlorothiazide | mouth Daily. | tablet | | 15 | 5 | | 25 mg tablet | | [...] encounter Progress Notes Rodolfo Cruz MD - 10/28/2014 11:03 AM PDT Quick Note: Ok for ma or nurse to notify pt that there may be slight lab abnormalities but that they d o not require follow up prior to next recommended visit but if they would like to discuss th ey can rtc earlier. Did we change her thyroid dose at last visit? documented in thi s encounter Plan of [...] [place] | | | | | | [address] | | | | | | | | +--------+---------+ + + + | 11/21/ | Office | Cardiology | Yesi, | | | 2020 | Visit | | JOSE ALBERTO Linder [address] | | | | | | [address] [place], | | | | | | [place] [address] | | | | | | [phone] | | | | | | | | +--------+---------+ + + + documented as of this encounter Procedures + +--------+ + + + | Procedure Name | Priori | Date/Time | Associated Diagnosis | Comments | | | ty | | | | + +--------+ + + + | HEPATITIS PANEL, | Routin | 10/25/2014 | History of | Results for this | | CHRONIC | e | 3:05 PM | hepatitis | procedure are in the | | | | PDT | | results section. | + +--------+ + + + | CBC WITH | Routin | 10/25/2014 | Essential | Results for this | | DIFFERENTIAL | e | 3:05 PM | hypertension | procedure are in the | | | | PDT | | results section. | + +--------+ + + + | C-REACTIVE PROTEIN, | Routin | 10/25/2014 | Essential | Results for this | | HIGH SENSITIVITY | e | 3:05 PM | hypertension | procedure are in the | | | | PDT | | results section. | + +--------+ + + + | TSH | Routin | 10/25/2014 | Other specified | Results for this | | | e | 3:05 PM | hypothyroidism | procedure are in the | | | | PDT | | results section. | + +--------+ + + + | T4, FREE | Routin | 10/25/2014 | Other specified | Results for this | | | e | 3:05 PM | hypothyroidism | procedure are in the | | | | PDT | | results section. | + +--------+ + + + | COMPREHENSIVE | STAT | 10/25/2014 | Pulmonary nodules | Results for this | | METABOLIC PANEL | | 3:05 PM | | procedure are in the | | | | PDT | | results section. | + +--------+ + + + documented in this encounter Results C-Reactive Protein, High Sensitivity (10/25/2014 3:05 PM PDT) + + + + + + | Component | Value | Ref Range | Performed | Pathologist | | | | | At | Signature | + + + + + + | CRP, High | 8.30 (H) | <=3.00 mg/L | [facility] | | | Sensitive | | | [facility] | | | | | [...] [address] | [place] | [phone] | | [facility] | | [address] | | | - LABORATORY | | [...] [place]EE | | | Basophils | | K/Mervat | [facility] | | | | | [...] [address] | [place] | [phone] | | [facility] | | [address] | | | - LABORATORY | | [...] + | [facility] | [address] | [place] | [phone] | | [facility] | | [address] | | | - LABORATORY | | | | + + + + + TSH (10/25/2014 3:05 PM PDT) + + + + + + | Component | Value | Ref Range | Performed | Pathologist | | | | | At | Signature | + + + + + + | TSH | 0.30 (L)Comment: All TSH | 0.34 - 5.60 | [facility] | | | | samples are screened | uIU/mL | [facility] | | | | using a [...] [address] | [place] | [phone] | | [facility] | | [address] | | | - LABORATORY | | | | + + + + + Comprehensive Metabolic Panel (10/25/2014 3:05 PM PDT) [...] | 0.76 | 0.60 - 1.30 | [facility] | | | | | mg/dL | [facility] | | | | | | MEDICAL | | | | | | CENTER - | | | | | | LABORATORY | | + + + + + + | eGFR if not | >60Comment: GLOMERULAR | >=60 | [facility] | | | | FILTRATION | mL/min/1.73m2 | [facility] | | | [place] | RATE,ESTIMATED | | MEDICAL | | | | mL/min/1.76g3Bwyq than | | CENTER - | | [...] | 8.9 | 8.3 - 10.5 | [facility] | | | | | mg/dL | [facility] | | | | | [...] | appended report. These | | [facility] | | | | results have been [...] | | bulin Ratio | | | [facility] | [...] [address] | [place] | [phone] | | [facility] | | [address] | | | - LABORATORY | | | | + + + + + Hepatitis Panel, Chronic (10/25/2014 3:05 PM PDT) + + + + + + | Component | Value | Ref Range | Performed | Pathologist | | | | | At | Signature | + + + + + + | Hepatitis A | Non Reactive | NR | [facility] | | | Ab Total | | | [facility] | | + + + + + + | Hepatitis B | Non Reactive | NR | [facility] | | | Surface Ag | | | [facility] | | + + + + + + | Hepatitis B | Non Reactive | NR | [facility] | | | Core Ab | | | [facility] | | | Total | | | | | + + + + + + | Hepatitis B | <3.1Comment: <10.0 | mIU/mL | [facility]FER[facility] | | | Surface Ab | Non | | [facility] | | | | Cpfowk80.0 or greater | | | | | | Indicates vaccine | | | | | | response or response to | | | | | | HBVinfection.Samples | | | | | | with a calculated value | | | | | | of 10 mIU/mL or greater | | | | | | are consideredreactive | | | | | | (protective) in | | | | | | accordance with the CDC | | | | | | guidelines. | | | | + + + + + + | Hepatitis C | Non ReactiveComment: | NR | REFER[facility] | | | Ab | Testing Performed: [facility], | | [facility] | | | | [address] | | | | | | [place] [id number] | | | | + + + + + + | Hepatitis | See CommentsComment: No | | REFERENCE | | | Interpretat | serologic evidence of | | [facility] | | | ion: | HAV, HBV or HCV | | | | | | infection.Testing | | | | | | Performed: [facility] [address] | | | | | [address], [place] | | | | | | [id number] | | | | + + + + + + + + | Specimen | + + | Blood specimen | | (specimen) | + + + + + + + | Performing | Address | City/State/Zipcode | Phone Number | | Organization | | | | + + + + + | [facility] | [address] | [place] [address] | [phone] | + + + + + documented in this encounter Visit Diagnoses + + | Diagnosis | + + | History of hepatitis Personal history of other infectious and parasitic disease | + + | Pulmonary nodules Other nonspecific abnormal finding of lung field | + + | Other specified hypothyroidism | + + | Essential hypertension Unspecified essential hypertension | + + documented in this encounter"
--- OUTSIDE RECORDS SUMMARY | ~2019-05-18 | XMS | Encounter Summary ---
Demographics + + + | Address | [address] | | | [place] [address] | + + + | Home Phone [...] | Author | [facility] | | | and [place] | + + + | Organization | [facility] | | | and [...] | | | | | [place] [address] | | + + + + + | Hunter Jackson | ECON | [place] | | + + + + + | Wes Jackson | ECON | [place], [place] | | + + + + + | Oziel Jackson | ECON | [place], [place] | | + + + + + Care Team Providers + +------+ + | Care Tapper Operator Name | Role | Phone | + +------+ + PCP | Unavailable | + +------+ + Encounter Details +--------+ + + + + | Date | Type | Department | Care Team | Description | +--------+ + + + + | 08/23/ | Hospital | [facility] | | | | 2010 | Encounter | MED CTR XRAY [address] | | | | | | [place] | | | | | | [place] [address] | | | | | | [phone] | | | +--------+ + + + [...] STREETER | | | | | | [address] | | | | | | | | +--------+---------+ + + + | 11/21/ | Office | Cardiology | Yesi | | | 2019 | Visit | | JOSE ALBERTO Linder [address] | | | | | | [place], | | | | | | [place] [address] | | | | | | [phone] | | | | | | | | +--------+---------+ + + + documented as of this encounter Procedures + +--------+ + + + | Procedure Name | Priori | Date/Time | Associated Diagnosis | Comments | | | ty | | | | + +--------+ + + + | MRI CERVICAL SPINE W | | 08/23/2010 | | Results for this | | WO CONTRAST | | 2:55 PM | | procedure are in the | | | | PDT | | results section. | + +--------+ + + + documented in this encounter Results MRI Cervical Spine w wo Contrast (08/23/2010 2:55 PM PDT) + + | Specimen | + + | | + + + + + | Narrative | Performed At | + + + | [facility] | [facility] | | [address] [facility] | [facility] | | MR CERVICAL SPINE WITH AND | DIAG IMG | | WITHOUT CONTRAST, 08/23/2010 CLINICAL HISTORY: HISTORY OF | | | DEMYELINATING DISEASE. COMPARISON: None. TECHNIQUE: | | | Multiplanar, multisequence imaging of the cervical spine are | | | obtained following the uneventful intravenous administration of 15 | | | mL of Magnevist contrast. FINDINGS: There is reversal of | | | normal cervical lordosis apex at C4-5. The vertebral bodies have | | | normal height. Minimal endplate degenerative change is present at | | | C4-5. Disk space narrowing is present at C3-4, C4-5, C5-6, and | | | C6-7. The cord maintains its normal size, signal, and contour | | | throughout its visible course. Limited evaluation of the posterior | | | fossa contents is unremarkable. The following levels were | | | evaluated: C3-4: No significant disk or disk-osteophyte | | | complex. The neural foramina are widely patent. C4-5: | | | Central disk-osteophyte complex mildly narrows the anterior CSF. | | | No cord contact. Mild left neural foraminal narrowing of the facet | | | arthrosis. The right neural foramen is patent. C5-6: Left | | | centric disk bulge with small osteophyte component. This narrows | | | the anterior CSF and entrance to the left neural foramen. The | | | right neural foramen is patent. C6-7: Broad disk and | | | disk-osteophyte complex. Mild narrowing of the anterior CSF. Left | | | uncinate hypertrophy and facet arthrosis contribute to mild neural | | | foraminal narrowing. The right neural foramen is patent. | | | C7-T1: Unremarkable. Following gadolinium administration, | | | there are no areas of abnormal enhancement. IMPRESSION: 1. | | | CERVICAL SPONDYLOSIS PREDOMINATING AT C4-5 AND C5-6 WITH SOME MILD | | | FORAMINAL NARROWING ON THE LEFT AND MILD EFFACEMENT OF THE ANTERIOR | | | CSF AT THOSE TWO LEVELS. 2. NO SIGNAL CHANGES IN THE CORD TO | | | SUGGEST INVOLVEMENT IN THE DEMYELINATING DISEASE. Dictated | | | Date/Time: 08/23/2010 17:16 Transcribed Date/Time: 08/23/2010 | | | 17:51 Scraper Tender: <Electronically Signed by Lauri Moreno | | | MD Karina> 08/23/10 2106 | | + + + + ---------+ | Procedure Note | + ---------+ | Remington, Rad Conversion - 06/18/2013 2:42 PM [facility] | | Diagnostic Imaging Department [address] [place] [address] | | MR CERVICAL SPINE WITH AND WITHOUT CONTRAST, 08/23/2010 | | CLINICAL HISTORY: HISTORY OF DEMYELINATING DISEASE. COMPARISON: None. | | TECHNIQUE: Multiplanar, multisequence imaging of the cervical spine are obtained | | following the uneventful intravenous administration of 15 mL of Magnevist contrast. | | FINDINGS: There is reversal of normal cervical lordosis apex at C4-5. The vertebral | | bodies have normal height. Minimal endplate degenerative change is present at C4-5. | | Disk space narrowing is present at C3-4, C4-5, C5-6, and C6-7. The cord maintains its | | normal size, signal, and contour throughout its visible course. Limited evaluation of | | the posterior fossa contents is unremarkable. The following levels were evaluated: | | C3-4: No significant disk or disk-osteophyte complex. The neural foramina are widely | | patent. C4-5: Central disk-osteophyte complex mildly narrows the anterior CSF. No | | cord contact. Mild left neural foraminal narrowing of the facet arthrosis. The right | | neural foramen is patent. C5-6: Left centric disk bulge with small osteophyte | | component. This narrows the anterior CSF and entrance to the left neural foramen. The | | right neural foramen is patent. C6-7: Broad disk and disk-osteophyte complex. Mild | | narrowing of the anterior CSF. Left uncinate hypertrophy and facet arthrosis contribute | | to mild neural foraminal narrowing. The right neural foramen is patent. C7-T1: | | Unremarkable. Following gadolinium administration, there are no areas of abnormal | | enhancement. IMPRESSION: 1. CERVICAL SPONDYLOSIS PREDOMINATING AT C4-5 AND C5-6 WITH | | SOME MILD FORAMINAL NARROWING ON THE LEFT AND MILD EFFACEMENT OF THE ANTERIOR CSF AT | | THOSE TWO LEVELS. 2. NO SIGNAL CHANGES IN THE CORD TO SUGGEST INVOLVEMENT IN THE | | DEMYELINATING DISEASE. Dictated Date/Time: 08/23/2010 17:16 Transcribed Date/Time: | | 08/23/2010 17:51 Scraper Tender: <Electronically Signed by Lauri Collins MD> | | 08/23/102105 | |left neural foraminal narrowing of the facet arthrosis. The right neural foramen is patent . | | | |C5-6: Left centric disk bulge with small osteophyte component. This narrows the anterior CSF and | |entrance to the left neural foramen. The right neural foramen is patent. | | | |C6-7: Broad disk and disk-osteophyte complex. Mild narrowing of the anterior CSF. Left u ncinate | |hypertrophy and facet arthrosis contribute to mild neural foraminal narrowing. The right n eural | |foramen is patent. | | | |C7-T1: Unremarkable. | | | |Following gadolinium administration, there are no areas of abnormal enhancement. | | | |IMPRESSION: | |1. CERVICAL SPONDYLOSIS PREDOMINATING AT C4-5 AND C5-6 WITH SOME MILD | |FORAMINAL NARROWING ON THE LEFT AND MILD EFFACEMENT OF THE ANTERIOR | |CSF AT THOSE TWO LEVELS. | | | |2. NO SIGNAL CHANGES IN THE CORD TO SUGGEST INVOLVEMENT IN THE | |DEMYELINATING DISEASE. | | | |Dictated Date/Time: 08/23/2010 17:16 | |Transcribed Date/Time: 08/23/2010 17:51 | |Scraper Tender: | |<Electronically Signed by Lauri Collins MD> 08/23/102105 | + ---------+ + +---------+ + + | Performing | Address | City/State/Zipcode | Phone Number | | Organization | | | | + +---------+ + + | [place] | | | | | [facility] | | | | + +---------+ + + documented in this encounter Visit Diagnoses Not on filedocumented in this encounter"
--- OUTSIDE RECORDS SUMMARY | ~2019-05-18 | XMS | Encounter Summary ---
Demographics + + + | Address | [address] | | | [place] [address] | + + + | Home Phone | | + + + | Preferred Language | Unknown | + + + | Marital Status | | + + + | Mandaeism Affiliation | Unknown | + + + | Race | Unknown | + + + | Ethnic Group | Unknown | + + + Author + + + | Author | [facility] | | | and [place] | + + + | Organization | [facility] | | | and [place] | + + + | Address | Unknown | + + + | Phone | Unavailable | + + + Support + + + + + | Name | Relationship | Address | Phone | + + + + + | Osmin Jackson | ECON | [address] | | | | | [place] [address] | | + + + + + | Hunter Jackson | ECON | [place] | | + + + + + | Wes Jackson | ECON | [place], [place] | | + + + + + | Oziel Jackson | ECON | [place], [place] | | + + + + + Care Team Providers + +------+ + | Care Parking Inspector Name | Role | Phone | [...] + + | 06/02/ | Telephone | [facility] | Harsha Selby | Appointment (post | | 2017 | | PHYSIATRY [address] | T[address] | injection) | | | | [place], | [address] [place] | | | | | [place] [address] | 8[address] | | | | | [phone] | | | +--------+ + + + [...] STREETER | | | | | | [address] | | | | | | | | +--------+---------+ + + + | 11/21/ | Office | Cardiology | Yesi, | | | 2019 | Visit | | JOSE ALBERTO Linder [address] | | | | | | [place] | | | | | | [place] [address] | | | | | | [phone] | | | | | | | | +--------+---------+ + + + documented as of this encounter Visit Diagnoses Not on filedocumented in this encounter"
--- OUTSIDE RECORDS SUMMARY | ~2019-05-18 | XMS | Encounter Summary ---
Demographics + + + | Address | [address] | | | [place] [address] | + + + | Home Phone [...] | Located Within [facility] | | | and [place] | + + + | Organization | [facility] | | [...] | | | | | [place] [address] | | + + + + + | Hunter Jackson | ECON | [place] | | + + + + + | Wes Jackson | ECON | [place], [place] | | + + + + + | Oziel Jackson | ECON | [place], [place] | | + + + + + Care Team Providers + +------+ + | Care Home Care Physical Therapist Name | Role | Phone | + +------+ + PCP | Unavailable | + +------+ + Encounter Details +--------+ + + + + | Date | Type | Department | Care Team | Description | +--------+ + + + + | 03/28/ | Hospital | [facility] | | | | 2009 | Encounter | MED CTR GENERIC OP | | | | | | CONV DEPT [address] | | | | | | [place], | | | | | | [place] [address] | | | | | | [phone] | | | +--------+ + + + [...] | | | | | | [place] [address] | | | | | | [phone] | | | | | | | | +--------+---------+ + + + documented as of this encounter Visit Diagnoses Not on filedocumented in this encounter"
--- OUTSIDE RECORDS SUMMARY | ~2019-05-18 | XMS | Encounter Summary ---
Demographics + + + | Address | [address] | | | [place] [address] | + + + | Home Phone [...] | [facility] | | | and [place] | + + + | Organization | [facility] | | | [...] | | | | | [place] [address] | | + + + + + | Hunter Jackson | ECON | [place] | | + + + + + | Wes Jackson | ECON | [place], [place] | | + + + + + | Oziel Jackson | ECON | [place], [place] | | + + + + + Care Team Providers + +------+ + | Care Clerk Secretary Name | Role | Phone | [...] | [address] | [address] | | | | | xray | [address] [place] | [place], | | | | | Procedures | [place] | [place] | | | | | [place] Bone Scan | [address] | [address] | | | | | Whole Body | Phone: | Phone: | | | | | | [phone] | [phone] | | | | | | Fax: | Fax: | | | | | | [phone] | [phone] | +--------+--------+ + + + + Encounter Details +--------+ + + + + | Date | Type | Department | Care Team | Description | +--------+ + + + + | 10/27/ | Orders Only | [facility] [place] [facility] | Rodolfo Cruz, | Lytic bone lesions | | 2013 | | MEDICINE [facility] | MD [address] | on xray (Primary Dx) | | | | Street [facility] | [place] | | | | | [facility] [place] [address] | [address] | | | | | [phone] | | | +--------+ + + + [...] [place] | | | | | | [address] | | | | | | | | +--------+---------+ + + + | 11/21/ | Office | Cardiology | Yesi, | | | 2019 | Visit | | JOSE ALBERTO Linder [address] | | | | | | [place], | | | | | | [place] [address] | | | | | | [phone] | | | | | | | [...]
--- OUTSIDE RECORDS SUMMARY | ~2019-05-18 | XMS | Encounter Summary ---
Demographics + + + | Address | [address] | | | [place] [address] | + + + | Home Phone [...] | Author | [facility] | | | and [place] | + + + | Organization | [facility] | | [...] | | | | | [place] [address] | | + + + + + | Hunter Jackson | ECON | [place] | | + + + + + | Wes Jackson | ECON | [place], [place] | | + + + + + | Oziel Jackson | ECON | [place], [place] | | + + + + + Care Team Providers + +------+ + | Care Gas Torch Brazier Name | Role | Phone | + +------+ + | Rodolfo Cruz MD | PCP | | + +------+ + Encounter Details +--------+ + + + + | Date | Type | Department | Care Team | Description | +--------+ + + + + | 12/08/ | Orders Only | [facility] [place] [facility] | Jasmyn Aranda, | | | 2013 | | SLEEP DISORDER [address] | CYBER INSTRUCTOR | | | | | [address] [place] | | | | | | [place] [address] | | | | | | [phone] | | | +--------+ + + + [...] STREET[place] | | | | | | [address] | | | | | | | | +--------+---------+ + + + | 11/21/ | Office | Cardiology | Yesi, | | | 2020 | Visit | | JOSE ALBERTO Linder [address] | | | | | | [place], | | | | | | [place] [address] | | | | | | [phone] | | | | | | | | +--------+---------+ + + + documented as of this encounter Visit Diagnoses Not on filedocumented in this encounter"
--- OUTSIDE RECORDS SUMMARY | ~2019-05-18 | XMS | Encounter Summary ---
Demographics + + + | Address | [address] | | | [place] [address] | + + + | Home Phone [...] | Author | [facility] | | | and [place] | + + + | Organization | [facility] | | | and [...] | | | | | [place] [address] | | + + + + + | Hunter Jackson | ECON | [place] | | + + + + + | Wes Jackson | ECON | [place], [place] | | + + + + + | Oziel Jackson | ECON | [place], [place] | | + + + + + Care Team Providers + +------+ + | Care Headstart Teacher Name | Role | Phone | [...] + + | 10/25/ | Office | [facility] | Rodolfo Cruz, | Essential | | 2015 | Visit | MEDICINE [facility] | MD [address] | hypertension | | | | Street [place] | [place] | (Primary Dx); | | | | [place] [address] | [address] | Depression with | | | | [phone] | | anxiety; Other | | | [...] and no changes required: Born in [facility] since 1965 Marital status: Children: 6, 5 living, 10 grandchildren 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 | [place] | [phone] | | [facility] | | [address] | | | - LABORATORY | | [...] | | | | g/dL | [facility] | | | | [...] [address] | [place] | [phone] | | [facility] | | [address] | | | - LABORATORY | | [...]
--- OUTSIDE RECORDS SUMMARY | ~2019-05-18 | XMS | Encounter Summary ---
Demographics + + + | Address | [address] | | | [place] [address] | + + + | Home Phone [...] + | Author | [facility] | | | and [place] | + + + | Organization | [facility] | | [...] | | | | | [place] [address] | | + + + + + | Hunter Jackson | ECON | [place] | | + + + + + | Wes Jackson | ECON | [place], [place] | | + + + + + | Oziel Jackson | ECON | [place], [place] | | + + + + + Care Team Providers + +------+ + | Care Maintenance Helper Name | Role | Phone | [...] Description | +--------+--------+ + + + | 01/10/ | Refill | [facility] [place] | Yesi, | Medication Refill | | 2015 | | CARDIOLOGY [address] | JOSE ALBERTO Linder [address] | | | | | [place], | [place], | | | | | [place] [address] | [place] [address] | | | | | [phone] | [phone] | | | | | | | [...] STREETER | | | | | | [address] | | | | | | | | +--------+---------+ + + + | 11/21/ | Office | Cardiology | Yesi, | | | 2019 | Visit | | JOSE ALBERTO [address] | | | | | | [place] | | | | | | [place] [address] | | | | | | [phone] | | | | | | | | +--------+---------+ + + + documented as of this encounter Visit Diagnoses Not on filedocumented in this encounter"
--- OUTSIDE RECORDS SUMMARY | ~2019-05-18 | XMS | Encounter Summary ---
Demographics + + + | Address | [address] | | | [place] [address] | + + + | Home Phone [...] | Author | [facility] | | | and [place] | + + + | Organization | [facility] | [...] | | | | | [place] [address] | | + + + + + | Hunter Jackson | ECON | [place] | | + + + + + | Wes Jackson | ECON | [place], [place] | | + + + + + | Oziel Jackson | ECON | [place], [place] | | + + + + + Care Team Providers + +------+ + | Care Pony Worker Name | Role | Phone | [...] + + | 11/26/ | Office | [facility] | Rodolfo Cruz, | Memory loss (Primary | | 2016 | Visit | MEDICINE [address] | [address] | Dx); U[place], | | | | Street [place] | [place] | unspecified | | | | [place] [address] | [address] | | | | | [phone] | | | +--------+---------+ + + + [...] No raúl rgy. With ER visit in [place] last week. This is persisting except for [...] W | | | | | | [place], | | | | | | [place] [address] | | | | | | [phone] | | | | | | | [...] [address] | [place] | [phone] | | [facility] | | [address] | | | - LABORATORY | | [...] | | [address] | | | [facility] | | | | | | MEDICAL [...] [address] | [place] | [phone] | | [facility] | | [address] | | | - LABORATORY | | [...] [address] | [place] | [phone] | | [facility] | | [address] | | | - LABORATORY | | | | + + + + + documented in this encounter Visit Diagnoses + + | Diagnosis | + + | Memory loss - Primary | + + | Urticaria, unspecified | + + documented in this encounter
--- OUTSIDE RECORDS SUMMARY | ~2019-05-18 | XMS | Encounter Summary ---
Demographics + + + | Address | [address] | | | [place] [address] | + + + | Home Phone [...] Author | [facility] | | | and [place] | + + + | Organization | [facility] | | | [...] | | | | | [place] [address] | | + + + + + | Hunter Jackson | ECON | [place] | | + + + + + | Wes Jackson | ECON | [place], [place] | | + + + + + | Oziel Jackson | ECON | [place], [place] | | + + + + + Care Team Providers + +------+ + | Care Senior Living Sales Counselor Name | Role | Phone | + [...] Heart | MD Irina | [address] | | | | | murmur | [address] | [place], | | | | | Procedures | [address] | [place] | | | | | ECHO | [place], | [address] | | | | | Complete [place] | [place] [address] | Phone: | | | | | ECHO HEART | Phone: | [phone] | | | | | [place] | [phone] | Fax: | | | | | [address] | Fax: | [phone] | | | | | [place] | [phone] | | | | | | ECHO [...] Closed | | Radiology | Diagnoses | [place], | [facility] | | | | | Heart | MD Irina | [address] | | | | | murmur | [address] | [place], | | | | | Procedures | [address] | [place] | | | | | ECHO | [place], | [address] | | | | | Complete [place] | [place] [address] | Phone: | | | | | ECHO HEART | Phone: | [phone] | | | | | [place] | [phone] | Fax: | | | | | [address] | Fax: | [phone] | | | | | [place] | [phone] | | | | | | ECHO [...] + + | 10/25/ | Hospital | [facility] | Irina Simms, | Heart murmur | | 2015 | Encounter | MED CTR ECHO [address] | MD [address] | | | | | [place] | [facility], | | | | | [place] [address] | [place] [address] | | | | | [phone] | [phone] | | | | | | | | | | | | Marya [place], | | | | | | Technologist [...] | | | | | | [place] [address] | | | | | | [phone] | | | | | | | | +--------+---------+ + + + documented as of this encounter Procedures + +--------+ + + + | Procedure Name | Priori | Date/Time | Associated Diagnosis | Comments | | | ty | | | | + +--------+ + + + | ECHO COMPLETE | Routin | 10/25/2014 | Heart murmur | Results for this | | | e | 11:36 AM | | procedure are in the | | | | PDT | | results section. | + +--------+ + + + | LVEF VALUE | Routin | 10/25/2014 | | Results for this | | [...] Performed At | + + + | [facility] ECHOCARDIOGRAM REPORT | FRIEND[facility]IP | | STUDY DATE: 10/25/2014 PATIENT NAME: Soumya Jackson : | [facility] | | 1935 PCP: Rodolfo Cruz MD CL[facility]ICAL [facility] | | HISTORY/DIAGNOSIS: MURMUR A transthoracic [...] by: | | | Irina Simms MD [facility] 10/25/2014 11:39 | | | Chainstitch Tunnel Elastic Operator: Samm Caceres, NANCYCS, RVT, RDMS | | + + + + + + + + | Performing | Address | City/State/Zipcode | Phone Number | | Organization | | | | + + + + + | [address] | [address] | [place] | [phone] | | [facility] | | [address] | | | - IMAGING | | | | + + + + + LVEF VALUE (10/25/2014) + +-------+ + + + | Component | Value | Ref Range | Performed | Pathologist | | | | | At | Signature | + +-------+ + + + | LVEF-TTE | 65 | | | | | TRANSTHORAC | | | | | | IC ECHO | | | | | + +-------+ + + + documented in this encounter Visit Diagnoses + + | Diagnosis | + + | Heart murmur Undiagnosed cardiac murmurs | + + documented in this encounter"
--- OUTSIDE RECORDS SUMMARY | ~2019-05-18 | XMS | Encounter Summary ---
Demographics + + + | Address | [address] | | | [place] [address] | + + + | Home Phone [...] Author | [facility] | | | and [place] | + + + | Organization | [facility] [...] | | | | | [place] [address] | | + + + + + | Hunter Jackson | ECON | [place] | | + + + + + | Wes Jackson | ECON | [place], [place] | | + + + + + | Oziel Jackson | ECON | [place], [place] | | + + + + + Care Team Providers + +------+ + | Care Set Up Worker Name | Role | Phone | [...] + | 05/24/ | Telephone | [facility] | No, Physician | Medication Refill | | 2016 | | MEDICINE [facility] [address] | | | | | | [place] | | | | | | [place] [address] | | | | | | [phone] | | | +--------+ + + + [...] STREETER | | | | | | [address] | | | | | | | | +--------+---------+ + + + | 11/21/ | Office | Cardiology | Yesi, | | | 2019 | Visit | | JOSE ALBERTO Linder [address] | | | | | | [place] | | | | | | [place] [address] | | | | | | [phone] | | | | | | | | +--------+---------+ + + + documented as of this encounter Visit Diagnoses Not on filedocumented in this encounter"
--- OUTSIDE RECORDS SUMMARY | ~2019-05-18 | XMS | Encounter Summary ---
Demographics + + + | Address | [address] | | | [place] [address] | + + + | Home Phone [...] | [facility] | | | and [place] | + + + | Organization | [facility] | | [...] | | | | | [place] [address] | | + + + + + | Hunter Jackson | ECON | [place] | | + + + + + | Wes Jackson | ECON | [place], [place] | | + + + + + | Oziel Jackson | ECON | [place], [place] | | + + + + + Care Team Providers + +------+ + | Care Managed Care Specialist Name | Role | Phone | [...] | [address] | | | | | [address] | | | | | | [phone] | | | +--------+--------+ + + + [...] STREET[place] | | | | | | [address] | | | | | | | | +--------+---------+ + + + | 11/21/ | Office | Cardiology | Yesi, | | | 2019 | Visit | | JOSE ALBERTO [address]inder [address] | | | | | | [place] | | | | | | [place] [address] | | | | | | [phone] | | | | | | | | +--------+---------+ + + + documented as of this encounter Visit Diagnoses Not on filedocumented in this encounter"
--- OUTSIDE RECORDS SUMMARY | ~2019-05-18 | XMS | Encounter Summary ---
Demographics + + + | Address | [address] | | | [place] [address] | + + + | Home Phone [...] Author | [facility] | | | and [place] | + + + | Organization | [facility] | | | and [...] | | | | | [place] [address] | | + + + + + | Hunter Jackson | ECON | [place] | | + + + + + | Wes Jackson | ECON | [place], [place] | | + + + + + | Oziel Jackson | ECON | [place], [place] | | + + + + + Care Team Providers + +------+ + | Care Research Program Manager Name | Role | Phone | + +------+ + | Rodolfo Cruz MD | PCP | | + +------+ + Encounter Details +--------+ + + + + | Date | Type | Department | Care Team | Description | +--------+ + + + + | 03/21/ | Abstract | [facility] | Rodolfo Cruz, | | | 2013 | | MEDICINE [address] [place] [address] | MD [address] | | | | | [facility] | [place] | | | | | [place] [address] | [address] | | | | | [phone] | | | +--------+ + + + [...] [place] | | | | | | [address] | | | | | | | | +--------+---------+ + + + | 11/21/ | Office | Cardiology | Yesi, | | | 2019 | Visit | | JOSE ALBERTO Linder [address] | | | | | | [place], | | | | | | [place] [address] | | | | | | [phone] | | | | | | | | +--------+---------+ + + + documented as of this encounter Procedures + +--------+ + + + | Procedure Name | Priori | Date/Time | Associated Diagnosis | Comments | | | ty | | | | + +--------+ + + + | EXTERNAL: | Routin | 03/28/2010 | | Results for this | | COLONOSCOPY | e | | | procedure are in the | | | | | | results section. | + +--------+ + + + | DEXA BONE DENSITY | Routin | 10/24/2009 | | Results for this | | STUDY WO VERT FX | e | | | procedure are in the | | ASSESSMENT | | | | results section. | + +--------+ + + + documented in this encounter Results EXTERNAL: COLONOSCOPY (03/28/2010) + + + + + + | Component | Value | Ref Range | Performed | Pathologist | | | | | At | Signature | + + + + + + | Colonoscopy | One 2mm polyp in rectum. | | | | | | Non bleeding internal | | | | | Impression, | hemorrhoids. | | | | | External | | | | | + + + + + + DEXA Bone Density Study (10/24/2009) + +-------+ + + + | Component | Value | Ref Range | Performed | Pathologist | | | | | At | Signature | + +-------+ + + + | EXT LOWEST | 1.7 | | | | | T-SCORE | | | | | + +-------+ + + + documented in this encounter Visit Diagnoses Not on filedocumented in this encounter"
--- OUTSIDE RECORDS SUMMARY | ~2019-05-18 | XMS | Encounter Summary ---
Demographics + + + | Address | [address] | | | [place] [address] | + + + | Home Phone [...] Author | [facility] | | | and [place] | + + + | Organization | [facility] | | | and [...] | | | | | [place] [address] | | + + + + + | Hunter Jackson | ECON | [place] | | + + + + + | Wes Jackson | ECON | [place], [place] | | + + + + + | Oziel Jackson | ECON | [place], [place] | | + + + + + Care Team Providers + +------+ + | Care Nanotechnology Engineering Technician Name | Role | Phone [...] | [address] | | | | | [address] | | | | | | [phone] | | | +--------+--------+ + + + [...] STREET[place] | | | | | | [address] | | | | | | | | +--------+---------+ + + + | 11/21/ | Office | Cardiology | Yesi, | | | 2019 | Visit | | JOSE ALBERTO [address] | | | | | | [place] | | | | | | [place] [address] | | | | | | [phone] | | | | | | | | +--------+---------+ + + + documented as of this encounter Visit Diagnoses Not on filedocumented in this encounter"
--- OUTSIDE RECORDS SUMMARY | ~2019-05-18 | XMS | Encounter Summary ---
Demographics + + + | Address | [address] | | | [place] [address] | + + + | Home Phone [...] + + | Author | [facility] | | | and [place] | + + + | Organization | [facility] | | [...] | | | | | [place] [address] | | + + + + + | Hunter Jackson | ECON | [place] | | + + + + + | Wes Jackson | ECON | [place], [place] | | + + + + + | Oziel Jackson | ECON | [place], [place] | | + + + + + Care Team Providers + +------+ + | Care Floors Buffer Name | Role | Phone | + +------+ + PCP | Unavailable | + +------+ + Encounter Details +--------+ + + + + | Date | Type | Department | Care Team | Description | +--------+ + + + + | 10/24/ | [facility] | [facility] | Rodolfo Cruz, | | | 2009 | Encounter | MED CTR XRAY [address] | [address] | | | | | [place] | [place], [place] | | | | | [place], [place] [address] | [address] | | | | | [phone] | | | +--------+ + + + [...] | | | | | | [place] [address] | | | | | | [phone] | | | | | | | | +--------+---------+ + + + documented as of this encounter Visit Diagnoses Not on filedocumented in this encounter"
--- OUTSIDE RECORDS SUMMARY | ~2019-05-18 | XMS | Encounter Summary ---
Demographics + + + | Address | [address] | | | [place] [address] | + + + | Home Phone [...] Author | [facility] | | | and [place] | + + + | Organization | [facility] | [...] | | | | | [place] [address] | | + + + + + | Hunter Jackson | ECON | [place] | | + + + + + | Wes Jackson | ECON | [place], [place] | | + + + + + | Oziel Jackson | ECON | [place], [place] | | + + + + + Care Team Providers + +------+ + | Care Corpsman Name | Role | Phone | + +------+ + | Rodolfo Cruz MD | PCP | | + +------+ + Encounter Details +--------+---------+ + + + | Date | Type | Department | Care Team | Description | +--------+---------+ + + + | 10/29/ | Office | [facility] | Ulysses Jensen, | [facility] | | 2012 | Visit | ORTHOPEDIC SURGERY | [address] [facility] | (Primary Dx) | | | | [address] [place] [address] | [place], [place] | | | | | [place], [place] | [address] | | | | | [address] | | | | | | [phone] | | | +--------+---------+ + + + [...] encounter Progress Notes Ulysses Jensen MD - 10/29/2012 11:34 AM 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 10/29/12 | | AM PDT | | | | | at 1130, For 1 dose | | | | | | + +--------+ +-------+------+------+ +---+---+ | | | +---+---+ + +-------+ +-------+---+---+ | triamcinolone acetonide | Given | 10/30/19 | 20 mg | | | | (KENALOG-40) 40 mg/mL injection | | 13 11:14 | | | | | 20 mg 20 mg, Intra-articular, | | AM PDT | | | | | ONCE, [facility] 10/29/12 at 1130, For 1 | | | | | | | dose, Shake well. Not for IV | | | | | | | use., | | | | | | + +-------+ +-------+---+---+ +---+---+ | | | +---+---+ documented in this encounter"
--- OUTSIDE RECORDS SUMMARY | ~2019-05-18 | XMS | Encounter Summary ---
Demographics + + + | Address | [address] | | | [place] [address] | + + + | Home Phone [...] Author | [facility] | | | and [place] | + + + | Organization | [facility] | | | and [...] | | | | | [place] [address] | | + + + + + | Hunter Jackson | ECON | [place] | | + + + + + | Wes Jackson | ECON | [place], [place] | | + + + + + | Oziel Jackson | ECON | [place], [place] | | + + + + + Care Team Providers + +------+ + | Care V Belt Coverer Name | Role | Phone | + [...] + + | 08/18/ | Hospital | [facility] | Lauri Ayon | Inflammation of | | 2015 | Encounter | MED CTR MEDICAL | MD Rodolfo [address] | blood vessels (HCC) | | | | [facility] [address] [place] | (Primary Dx) | | | | [address] [place] | [place] [address] | | | | | [place] [address] | [phone] | | | | | [phone] | | | +--------+ + + + [...] + + + | Blood Pressure | 185/53 | 08/18/2014 11:40 AM | | | | | PDT | | + + + + + | Pulse | 58 | 08/18/2014 11:40 AM | | | | | PDT | | + + + + + | Temperature | 35.8 C (96.4 F) | 08/18/2014 11:40 AM | | | | | PDT | | + + + + + | Respiratory Rate | 16 | 08/18/2014 11:40 AM | | | | | PDT | | + + + + + | Oxygen Saturation | 97% | 08/18/2014 11:40 AM | | | | | PDT | | + + + + + | Inhaled Oxygen | - | - | | | Concentration | | | | + + + + + | Weight | 85.8 kg (189 lb 2.5 | 08/18/2014 11:40 AM | | | | oz) | PDT | | + + + + + | Height | - | - | | + + + + + | Body Mass Index | 31.51 | 08/03/2014 11:08 AM | | | [...] documented as of this encounter Progress Notes Tiara Kapoor RN - 08/18/2014 11:46 AM PDTREVIEW OF SYSTEMS Constitutional: Energy remains fair. Night sweats have decreased, none the past few nights . Denies high fevers, shaking chills, anorexia, nausea, vomiting or weight loss. Appetite without changes. Ear, Nose, Mouth, Throat: Denies odynophagia, dysphagia, or tinnitus. Cardiovascular: Denies shortness of breath, dyspnea on exertion, chest pain, palpitations o r orthopnea. Respiratory: Denies hemoptysis. Reports cough and clear sputum production. Gastrointestinal: Denies abdominal pain, constipation, diarrhea, melena, or bright red bloo d per rectum. Genitourinary: Denies hematuria or dysuria. Musculoskeletal: Shoulder and back tenderness reported. Neurologic: Denies headache or visual changes. Tingling and numbness reported in left foot, face and hand, states is related to prior stroke. Endocrine: Denies peripheral edema or heat/cold intolerance. Hematologic: Denies spontaneous bruising or bleeding. Integumentary: Denies rash or wounds. General itching reported. Pain: Denies pain. Note:Here for follow up. My chart: active. P DTdocumented in this encounter Plan of Treatment +--------+---------+ + + + | Date | Type | Specialty | Care Team | Description | +--------+---------+ + + + | 06/02/ | Office | Orthopedic Surgery | Ulysses Jensen, | | | 2019 | Visit | | MD Danny [address] | | | | | | [place] | | | | | | [address] | | | | | | | | +--------+---------+ + + + | 11/21/ | Office | Cardiology | Yesi, | | | 2019 | Visit | | JOSE ALBERTO Linder [address] | | | | | | [place], | | | | | | [place] [address] | | | | | | [phone] | | | | | | | | +--------+---------+ + + + documented as of this encounter Visit Diagnoses + + | Diagnosis | + + | 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
--- OUTSIDE RECORDS SUMMARY | ~2019-05-18 | XMS | Encounter Summary ---
Demographics + + + | Address | [address] | | | [place] [address] | + + + | Home Phone [...] Author | [facility] | | | and [place] | + + + | Organization | [facility] | | | and [place] | + + + | Address | Unknown | + + + | Phone | Unavailable | + + + Support + + + + + | Name | Relationship | Address | Phone | + + + + + | Osmin Jackson | ECON | [address] | | | | | [place] [address] | | + + + + + | Hunter Jackson | ECON | [place] | | + + + + + | Wes Jackson | ECON | [place], [place] | | + + + + + | Oziel Jackson | ECON | [place], [place] | | + + + + + Care Team Providers + +------+ + | Care Raw Material Planner Name | Role | Phone | + +------+ + | Rodolfo Cruz MD | PCP | | + +------+ + Encounter Details +--------+ + + + + | Date | Type | Department | Care Team | Description | +--------+ + + + + | 03/15/ | Hospital | [facility] | Rodolfo Cruz, | Other specified | | 2014 | Encounter | MED CTR LABORATORY | MD [address] | hypothyroidism; | | | | [address] [place] | [place], [place] | Pulmonary nodule, | | | | [place], [place] | [address] | right | | | | [address] | | | | | | [phone] | | | +--------+ + + + [...] encounter Progress Notes Rodolfo Cruz MD - 03/16/2015 11:47 AM PST Quick Note: Ok for ma to notify [...] | | | | | | [place] [address] | | | | | | [phone] | | | | | | | | +--------+---------+ + + + documented as of this encounter Procedures + +--------+ + + + | Procedure Name | Priori | Date/Time | Associated Diagnosis | Comments | | | ty | | | | + +--------+ + + + | CBC WITH | Routin | 03/15/2015 | Pulmonary nodule, | Results for this | | DIFFERENTIAL | e | 12:13 PM | right | procedure are in the | | | | PST | | results section. | + +--------+ + + + | TSH | Routin | 03/15/2015 | Other specified | Results for this | | | e | 12:13 PM | hypothyroidism | procedure are in the | | | | PST | | results section. | + +--------+ + + + documented in this encounter Results CBC with Differential (03/15/2015 [...] [address] | [place] | [phone] | | [facility] | | [address] | | | - LABORATORY | | | | + + + + + TSH (03/15/2015 12:13 PM PST) + + + + + + | Component | Value | Ref Range | Performed | Pathologist | | | | | At | Signature | + + + + + + | TSH | 0.90Comment: All TSH | 0.34 - 5.60 | [facility] | | | | samples are screened | uIU/mL | [address] | | | | using a [...] [address] | [place] | [phone] | | [facility] | | [address] | | | - LABORATORY | | | | + + + + + documented in this encounter Visit Diagnoses + + | Diagnosis | + + | Other specified hypothyroidism | + + | Pulmonary nodule, right Solitary pulmonary nodule | + + documented in this encounter"
--- OUTSIDE RECORDS SUMMARY | ~2019-05-18 | XMS | Encounter Summary ---
Demographics + + + | Address | [address] | | | [place] [address] | + + + | Home Phone [...] | Author | [facility] | | | and [place] | + + + | Organization | [facility] | [...] [place] | | | | | [place] [address] | | + + + + + | Hunter Jackson | ECON | [place] | | + + + + + | Wes Jackson | ECON | [place], [place] | | + + + + + | Oziel Jackson | ECON | [place], [place] | | + + + + + Care Team Providers + +------+ + | Care Ear Nose Throat Surgeon Name | Role | Phone | + [...] [address] | | | | | [place], | [place], | | | | | [place] [address] | [place] [address] | | | | | [phone] | [phone] | | | | | | | [...] [address] | | | | | | [place] | | | | | | [place] [address] | | | | | | [phone] | | | | | | | [...]
--- OUTSIDE RECORDS SUMMARY | ~2019-05-18 | XMS | Encounter Summary ---
Demographics + + + | Address | [address] | | | [place] [address] | + + + | Home Phone [...] Author | [facility] | | | and [place] | + + + | Organization | [facility] | | | and [place] | + + + | Address | Unknown | + + + | Phone | Unavailable | + + + Support + + + + + | Name | Relationship | Address | Phone | + + + + + | Osmin Jackson | ECON | [address] | | | | | [place] [address] | | + + + + + | Hunter Jackson | ECON | [place] | | + + + + + | Wes Jackson | ECON | [place], [place] | | + + + + + | Oziel Jackson | ECON | [place], [place] | | + + + + + Care Team Providers + +------+ + | Care Assigner Name | Role | Phone | + +------+ + | Rodolfo Cruz MD | PCP | | + +------+ + Encounter Details +--------+ + + + + | Date | Type | Department | Care Team | Description | +--------+ + + + + | 11/26/ | Hospital | [facility] | Rodolfo Cruz, | Memory loss; | | 2015 | Encounter | MED CTR LABORATORY | MD [address] | Urticaria, | | | | [address] [place] | [place], [place] | unspecified | | | | [place], [place] | [address] | | | | | [address] | | | | | | [phone] | | | +--------+ + + + [...] + + + +---------+ + + | Tupelo 3 1000 MG | Take by mouth. [...] [place]ET[place] | | | | | | [address] | | | | | | | | +--------+---------+ + + + | 11/21/ | Office | Cardiology | Yesi, | | | 2019 | Visit | | JOSE ALBERTO Linder [address] | | | | | | [place], | | | | | | [place] [address] | | | | | | [phone] | | | | | | | | +--------+---------+ + + + documented as of this encounter Procedures + +--------+ + + + | Procedure Name | Priori | Date/Time | Associated Diagnosis | Comments | | | ty | | | | + +--------+ + + + | VITAMIN B-12 | Routin | 11/27/2015 | Memory loss | Results for this | | | e | 12:55 PM | | procedure are in the | | | | PDT | | results section. | + +--------+ + + + | VITAMIN D, | Routin | 11/27/2015 | Memory loss | Results for this | | DEFICIENCY SCREEN | e | 12:55 PM | | procedure are in the | | (25-HYDROXY) | | PDT | | results section. | + +--------+ + + + | SEDIMENTATION RATE | Routin | 11/27/2015 | Urticaria, | Results for this | | | e | 12:55 PM | unspecified | procedure are in the | | | | PDT | | results section. | + +--------+ + + + documented in this encounter Results Sedimentation Rate (11/27/2015 12:55 [...] [address] | [place] | [phone] | | [facility] | | [address] | | | - LABORATORY | | [...] | | [address] | | | [facility] | | [...] + | [facility] | [address] | [place] | [phone] | | [facility] | | [address] | | | - LABORATORY | | | | + + + + + Vitamin B-12 (11/27/2015 12:55 PM PDT) + + + + + + | Component | Value | Ref Range | Performed | Pathologist | | | | | At | Signature | + + + + + + | VITAMIN | 1,561 (H)Comment: | 180 - 914 pg/mL | OLEGARIO | | | B-12 | DEFICIENT: | | [facility] | | | | <145 | [...] [address] | [place] | [phone] | | [facility] | | [address] | | | - LABORATORY | | | | + + + + + documented in this encounter Visit Diagnoses + + | Diagnosis | + + | Memory loss | + + | Urticaria, unspecified | + + documented in this encounter"
--- OUTSIDE RECORDS SUMMARY | ~2019-05-18 | XMS | Encounter Summary ---
Demographics + + + | Address | [address] | | | [place] [address] | + + + | Home Phone [...] | Author | [facility] | | | and [place] | + + + | Organization | [facility] [...] | | | | | [place] [address] | | + + + + + | Gisele Jackson | ECON | [place] | | + + + + + | Wes Jackosn | ECON | [place], [place] | | + + + + + | Oziel Jackson | ECON | [place], [place] | | + + + + + Care Team Providers + +------+ + | Care Field Sales Associate Name | Role | Phone | [...] | e disc | [place], [place] | [place], [place] | | | | | disease), | [address] | [address] | | | | | lumbar | Phone: | Phone: | | | | | Facet | [phone] | [phone] | | | | | arthritis of | Fax: | Fax: | | | | | lumbar | [phone] | [phone] | | | | | region | [...] back pain | [address] [place] | [address] | | | | | | [place] | [place] | | | | | | [address] | [address] Phone: | | | | | | Phone: | [phone] | | | | | | [phone] | Fax: | | | | | | Fax: | [phone] | | | | | | [phone] | | +--------+ + + + + + Encounter Details +--------+---------+ + + + | Date | Type | Department | Care Team | Description | +--------+---------+ + + + | 08/24/ | Office | [facility] | Harsha Selby | Chronic low back | | 2014 | Visit | PHYSIATRY [address] | MD Josh [address] | pain (Primary Dx); | | | | [place], | [place], [place] | DDD (degenerative | | | | [place] [address] | [address] | disc disease), | | | | [phone] | | lumbar; Facet | | | [...] y.o. female being seen today at the [facility]. Rodolfo Cruz for complaints [...] Laterality: N/A; Surgeon: Lauri Garrison MD; [facility]: [facility] Upper gastrointestinal endoscopy 11/04/2013 EGD IP 449; Laterality: N/A; Surgeon: Samm Pandya MD; Location: [facility] CURRENT MEDICATIONS: Current Outpatient [...] has no apparent deficits with short or intermediate memory. She has appropriate fund of knowledge [...] [place]REET[place] | | | | | | [address] | | | | | | | | +--------+---------+ + + + | 11/21/ | Office | Cardiology | Yesi, | | 2019 | Visit | | JOSE ALBERTO Linder [address] | | | | | | [place] | | | | | | [place] [address] | | | | | | [phone] | | | | | | | [...]
--- OUTSIDE RECORDS SUMMARY | ~2019-05-18 | XMS | Encounter Summary ---
Demographics + + + | Address | [address] | | | [place] [address] | + + + | Home Phone | | + + + | Preferred Language | Unknown | + + + | Marital Status | | + + + | Congregation Affiliation | Unknown | + + + | Race | Unknown | + + + | Ethnic Group | Unknown | + + + Author + + + | Author | [facility] | | | and [place] | + + + | Organization | [facility] | | | and [place] | + + + | Address | Unknown | + + + | Phone | Unavailable | + + + Support + + + + + | Name | Relationship | Address | Phone | + + + + + | Osmin Jackson | ECON | [address] | | | | | [place] [address] | | + + + + + | Hunter Jackson | ECON | [place] | | + + + + + | Wes Jackson | ECON | [place], [place] | | + + + + + | Oziel Jackson | ECON | [place], [place] | | + + + + + Care Team Providers + +------+ + | Care Wire Repairer Name | Role | Phone | [...] + + | 10/21/ | Office | [facility] | Ulysses Jensen, | Complete tear of | | 2017 | Visit | ORTHOPEDIC SURGERY | [address] | right rotator cuff | | | | [address] [facility] | [place] | (Primary Dx) | | | | [place] | [address] | | | | | [address] | | | | | | [phone] | | | +--------+---------+ + + + [...] is scheduled to undergo CAB G at [place] next week She kept this appointment just [...] STREET[place] | | | | | | [address] | | | | | | | | +--------+---------+ + + + | 11/21/ | Office | Cardiology | Yesi, | | | 2019 | Visit | | JOSE ALBERTO Linder [address] | | | | | | [place], | | | | | | [place] [address] | | | | | | [phone] | | | | | | | | +--------+---------+ + + + documented as of this encounter Visit Diagnoses + + | Diagnosis | + + | Complete tear of right rotator cuff - Primary | + + documented in this encounter
--- OUTSIDE RECORDS SUMMARY | ~2019-05-18 | XMS | Encounter Summary ---
Demographics + + + | Address | [address] | | | [place] [address] | + + + | Home Phone [...] | [facility] | | | and [place] | + + + | Organization | [facility] | [...] | | | | | [place] [address] | | + + + + + | Hunter Jackson | ECON | [place] | | + + + + + | Wes Jackson | ECON | [place], [place] | | + + + + + | Oziel Jackson | ECON | [place], [place] | | + + + + + Care Team Providers + +------+ + | Care Assistant Cook Name | Role | Phone | + +------+ + | Rodolfo Cruz MD | PCP | | + +------+ + Reason for Visit +--------+ + | Reason | Comments | +--------+ + | Other | issues since starting the new medication | +--------+ + Encounter Details +--------+ + + + + | Date | Type | Department | Care Team | Description | +--------+ + + + + | 06/27/ | Telephone | [facility] | Yesi, | Other (issues since | | 2015 | | CARDIOLOGY [address] | JOSE ALBERTO Linder [address] | starting the new | | | | [place], | [place], | medication) | | | | [place] [address] | [place] [address] | | | | | [phone] | | | | | | | [...] STREETER | | | | | | [address] | | | | | | | | +--------+---------+ + + + | 11/21/ | Office | Cardiology | Yesi, | | | 2019 | Visit | | JOSE ALBERTO Linder [address] | | | | | | [place], | | | | | | [place] [address] | | | | | | [phone] | | | | | | | | +--------+---------+ + + + documented as of this encounter Visit Diagnoses Not on filedocumented in this encounter"
--- OUTSIDE RECORDS SUMMARY | ~2019-05-18 | XMS | Encounter Summary ---
Demographics + + + | Address | [address] | | | [place] [address] | + + + | Home Phone [...] | Author | [facility] | | | and [place] | + + + | Organization | [facility] | | [...] | | | | | [place] [address] | | + + + + + | Hunter Jackson | ECON | [place] | | + + + + + | Wes Jackson | ECON | [place], [place] | | + + + + + | Oziel Jackson | ECON | [place], [place] | | + + + + + Care Team Providers + +------+ + | Care Surgical Orderly Name | Role | Phone | + +------+ + | Rodolfo Cruz MD | PCP | | + +------+ + Encounter Details +--------+ + + + + | Date | Type | Department | Care Team | Description | +--------+ + + + + | 10/25/ | Hospital | [facility] | Rodolfo Cruz, | History of | | 2014 | Encounter | MED CTR LABORATORY | MD Raya Zuleta [address] | hepatitis; Pulmonary | | | | [address] [place] | [place], [place] | nodules; Other | | | | [place], [place] | [address] | specified | | | | [address] | | hypothyroidism; | | | | [phone] | | Essential | | | | [...] [place] | | | | | | [address] | | | | | | | | +--------+---------+ + + + | 11/21/ | Office | Cardiology | Yesi, | | | 2020 | Visit | | JOSE ALBERTO Linder [address] | | | | | | [place], | | | | | | [place] [address] | | | | | | [phone] | | | | | | | [...] | | | Sensitive | | | [facility] | | | | | [...] [address] | [place] | [phone] | | [facility] | | [address] | | | - LABORATORY | | [...] [address] | [place] | [phone] | | [facility] | | [address] | | | - LABORATORY | | [...] + | [facility] | [address] | [place] | [phone] | | [facility] | | [address] | | | - LABORATORY | | [...] [address] | [place] | [phone] | | [facility] | | [address] | | | - LABORATORY | | [...] | | | | | mg/dL | [facility] | | | | | | MEDICAL | | | | | | CENTER - | | | | | | LABORATORY | | + + + + + + | eGFR if not | >60Comment: GLOMERULAR | >=60 | [facility] | | | | FILTRATION | mL/min/1.73m2 | [facility] | | | TUNISIAN | RATE,ESTIMATED | | MEDICAL | | | | mL/min/1.54j8Cpvu than | | CENTER - | | [...] | 8.9 | 8.3 - 10.5 | [facility] | | | | | mg/dL | [facility] | | | | | | [...] [address] | [place] | [phone] | | [facility] | | [address] | | | - LABORATORY | | [...] | LAB [facility] | | | | [id number] or greater | | | | | [...] | | | | | [place] [address] | | | | + + + [...] [place] | | | | | | [address] | | | | + + + + + + + + | Specimen | + + | Blood specimen | | (specimen) | + + + + + + + | Performing | Address | City/State/Zipcode | Phone Number | | Organization | | | | + + + + + | [facility] | [address] | [place] [address] | [phone] | + + + + + documented [...]
--- OUTSIDE RECORDS SUMMARY | ~2019-05-18 | XMS | Encounter Summary ---
Demographics + + + | Address | [address] | | | [place] [address] | + + + | Home Phone [...] + | Author | [facility] | | | and [place] | + + + | Organization | [facility] [...] [place] | | | | | [place] [address] | | + + + + + | Hunter Jackson | ECON | [place] | | + + + + + | Wes Jackson | ECON | [place], [place] | | + + + + + | Oziel Jackson | ECON | [place], [place] | | + + + + + Care Team Providers + +------+ + | Care Business Services Clerk Name | Role | Phone | [...] Description | +--------+--------+ + + + | 11/25/ | Refill | [facility] [place] | Irina Simms, | Medication Refill | | 2018 | | CARDIOLOGY [address] | MD [address] [place] | | | | | [place], | [place], | | | | | [place] [address] | [place] [address] | | | | | [phone] | [phone] | | | | | | | [...] STREETER | | | | | | [address] | | | | | | | | +--------+---------+ + + + | 11/21/ | Office | Cardiology | Yesi, | | | 2019 | Visit | | JOSE ALBERTO Linder [address] | | | | | | [place] | | | | | | [place] [address] | | | | | | [phone] | | | | | | | | +--------+---------+ + + + documented as of this encounter Visit Diagnoses Not on filedocumented in this encounter"
--- OUTSIDE RECORDS SUMMARY | ~2019-05-18 | XMS | Encounter Summary ---
Demographics + + + | Address | [address] | | | [place] [address] | + + + | Home Phone [...] Author | [facility] | | | and [place] | + + + | Organization | [facility] | | | and [place] | + + + | Address | Unknown | + + + | Phone | Unavailable | + + + Support + + + + + | Name | Relationship | Address | Phone | + + + + + | Osmin Jackson | ECON | [address] | | | | | [place] [address] | | + + + + + | Hunter Jackson | ECON | [place] | | + + + + + | Wes Jackson | ECON | [place], [place] | | + + + + + | Oziel Jackson | ECON | [place], [place] | | + + + + + Care Team Providers + +------+ + | Care Area Field Person Name | Role | Phone | + +------+ + | Rodolfo Cruz MD | PCP | | + +------+ + Reason for Visit + + + | Reason | Comments | + + + | Lab Order | Due for fasting labs prior to appt | + + + Encounter Details +--------+ + + + + | Date | Type | Department | Care Team | Description | +--------+ + + + + | 11/09/ | Telephone | [facility] [place] | Yesi, | Lab Order (Due for | | 2014 | | CARDIOLOGY [address] | JOSE ALBERTO Linder [address] | fasting labs prior | | | | [place], | [place], | to appt) | | | | [place] [address] | [place] [address] | | | | | [phone] | [phone] | | | | | | | [...] STREETER | | | | | | [address] | | | | | | | | +--------+---------+ + + + | 11/21/ | Office | Cardiology | Yesi, | | | 2019 | Visit | | JOSE ALBERTO Linder [address] | | | | | | [place], | | | | | | [place] [address] | | | | | | [phone] | | | | | | | | +--------+---------+ + + + documented as of this encounter Results Lipid Panel (09/26/2015 10:46 AM PDT) + + + + + + | Component | Value | Ref Range | Performed | Pathologist | | | | | At | Signature | + + + + + + | Triglycerid | 98 | 35 - 160 mg/dL | [facility] | | | es | | | [facility] | | | | | | MEDICAL | | | | | | CENTER - | | | | | | LABORATORY | | + + + + + + | Cholesterol | 218 (H) | 150 - 200 mg/dL | [facility] | | | | | | [facility] | | | | | | MEDICAL | | | | | | CENTER - | | | | | | LABORATORY | | + + + + + + | HDL | 71Comment: New HDL | 28 - 83 mg/dL | [facility] | | | | Reference Range as of | | [facility] | | | | January 19, 2015 | | MEDICAL | | | | Values may be 10-20% | | CENTER - | | | | lower with new, | | LABORATORY | | | | standardized method. | | | | + + + + + + | Chol/HDL | 3.1 | | [facility] | | | Ratio | | | [facility] | | | | | | MEDICAL | | | | | | CENTER - | | | | | | LABORATORY | | + + + + + + | LDL, | 127 | <=130 mg/dL | [facility] | | [...] [address] | [place] | [phone] | | [facility] | | [address] | | | - LABORATORY | | | | + + + + + documented in this encounter Visit Diagnoses + + | Diagnosis | + + | Essential hypertension - Primary Unspecified essential hypertension | + + | Hyperlipidemia Other and unspecified hyperlipidemia | + + documented in this encounter"
--- OUTSIDE RECORDS SUMMARY | ~2019-05-18 | XMS | Encounter Summary ---
Demographics + + + | Address | [address] | | | [place] [address] | + + + | Home Phone [...] + | Author | [facility] | | | and [place] | + + + | Organization | [facility] | | [...] | | | | | [place] [address] | | + + + + + | Hunter Jackson | ECON | [place] | | + + + + + | Wes Jackson | ECON | [place], [place] | | + + + + + | Oziel Jackson | ECON | [place], [place] | | + + + + + Care Team Providers + +------+ + | Care Administrative Associate Name | Role | Phone | [...] + + | 10/31/ | Telephone | [facility] | Rodolfo Cruz, | Results | | 2014 | | MEDICINE [facility] S[facility]an | MD [address] | | | | | [place] | [place] [address] | | | | | [place] [address] | [address] | | | | | [phone] | | | +--------+ + + + [...] STREETER | | | | | | [address] | | | | | | | | +--------+---------+ + + + | 11/21/ | Office | Cardiology | Yesi, | | | 2019 | Visit | | JOSE ALBERTO Linder [address] | | | | | | [place] | | | | | | [place] [address] | | | | | | [phone] | | | | | | | [...]
--- OUTSIDE RECORDS SUMMARY | ~2019-05-18 | XMS | Encounter Summary ---
Demographics + + + | Address | [address] | | | [place] [address] | + + + | Home Phone [...] | [facility] | | | and [place] | + + + | Organization | [facility] [...] [place] | | | | | [place] [address] | | + + + + + | Hunter Jackson | ECON | [place] | | + + + + + | Wes Jackson | ECON | [place], [place] | | + + + + + | Oziel Jackson | ECON | [place], [place] | | + + + + + Care Team Providers + +------+ + | Care Rotary Shear Worker Helper Name | Role | Phone | + +------+ + | Gunderson, Kellie PA | PCP | | + +------+ + Reason for Visit Diagnostic/Screening (Routine) +--------+--------+ [...] | JOSE ALBERTO Linder | [address] [place] | | | | | ia, mixed | [address] | [place], | | | | | Chest pain, | [place] | [place] | | | | | unspecified | [place], | [address] | | | | | type | [place] | Phone: | | | | | Procedures | [address] | [phone] | | | | | [place] Nuclear | Phone: | Fax: | | | | | Stress Test | [phone] | [phone] | | | | | (Vasodilator | Fax: | | | | | | ) CHG | [phone] | | | | | | MYOCARDIAL | | | | | | | SPECT | | | | | | | MULTIPLE | | | | | | | STUDIES FL | | | | | | | CV STRS TST | | | | | | | XERS&/OR RX | | | | | | | CONT ECG W/O | | | | | | | I&R FL | | | | | | | [...] + + | 07/16/ | Hospital | [facility] | Yesi, | | | 2017 | Encounter | MED CTR NUCLEAR | JOSE ALBERTO Linder [address] | | | | | MEDICINE [address] | [place], | | | | | [place], | [place] [address] | | | | | [place] [address] | [phone] | | | | | [phone] | | | +--------+ + + + [...] | | | | 7 | | CHILD DEVELOPMENT SPECIALIST PO) | | | | | | [...] STREETER | | | | | | [address] | | | | | | | | +--------+---------+ + + + | 11/21/ | Office | Cardiology | Yesi, | | | 2019 | Visit | | JOSE ALBERTO Linder [address] | | | | | | [place], | | | | | | [place] [address] | | | | | | [phone] | | | | | | | [...] TC-99M sestamibi | Given | 07/17/19 | 30 | | | | (CARDIOLITE) injection 30 | | 17 12:58 | -millicu | | | | millicurie 30 -millicurie, | | PM PST | kash | | | | Intravenous, ONCE AUGUSTON, Other, | | | | | | | Starting 07/16/16 at 1258, For | | | | | | | 1 dose, Nuclear Medicine | | | | | | + +--------+ + +------+------+ +---+---+ | | | +---+---+ documented in this encounter"
--- OUTSIDE RECORDS SUMMARY | ~2019-05-18 | XMS | Encounter Summary ---
Demographics + + + | Address | [address] | | | [place] [address] | + + + | Home Phone [...] + | Author | [facility] | | | and [place] | + + + | Organization | [facility] | | | and [place] | + + + | Address | Unknown | + + + | Phone | Unavailable | + + + Support + + + + + | Name | Relationship | Address | Phone | + + + + + | Osmin Jackson | ECON | [address] | | | | | [place] [address] | | + + + + + | Hunter Jackson | ECON | [place] | | + + + + + | Wes Jackson | ECON | [place], [place] | | + + + + + | Oziel Jackson | ECON | [place], [place] | | + + + + + Care Team Providers + +------+ + | Care Staff Electronic Warfare Officer Name | Role | Phone | [...] | JOSE ALBERTO Linder | [address] [place] | | | | | ia, mixed | [address] | [place], | | | | | Chest pain, | [place] | [place] | | | | | unspecified | [place], | [address] | | | | | type | [place] | Phone: | | | | | Procedures | [address] | [phone] | | | | | [place] Nuclear | Phone: | Fax: | | | | | Stress Test | [phone] | [phone] | | | | | (Vasodilator | Fax: | | | | | | ) CHG | [phone] | | | | | | MYOCARDIAL [...] + + | 07/16/ | Hospital | [facility] | Yesi, | Hyperlipidemia, | | 2017 | Encounter | MED CTR NUCLEAR | JOSE ALBERTO Linder [address] | mixed; Chest pain, | | | | MEDICINE [address] | [place], | unspecified type | | | | [place], | [place] [address] | | | | | [place] [address] | [phone] | | | | | [phone] | | | | | | | Secondary School Teacher LibrarianRenetta | | +--------+ + + + + [...] | | | | 7 | | APPLICATION ARCHITECT MANAGER PO) | | | | | | [...] STREETER | | | | | | [address] | | | | | | | | +--------+---------+ + + + | 11/21/ | Office | Cardiology | Yesi, | | | 2019 | Visit | | JOSE ALBERTO Linder [address] | | | | | | [place], | | | | | | [place] [address] | | | | | | [phone] | | | | | | | [...] wall thickness. Preserved left ventricular systolic | [facility] | | function. LVEF by gated SPECT 75%. Signed by: Irina | - IMAGING | | MD Mendez [facility] 07/16/2016, 13:12 | | + + + + + + | Narrative | Performed At | + + + | NUCLEAR MEDICINE STRESS TEST REPORT | [facility] | | Patient Name: Soumya Jackson Study Date: 07/16/2016 Primary Care | [facility] | | Provider: FLORA Morgan : 1935 Age: | [facility] | | 80 y.o. Gender: female [...] [address] | [place] | [phone] | | [facility] | | [address] | | | - IMAGING | | [...]
--- OUTSIDE RECORDS SUMMARY | ~2019-05-18 | XMS | Encounter Summary ---
Demographics + + + | Address | [address] | | | [place] [address] | + + + | Home Phone [...] | [facility] | | | and [place] | + + + | Organization | [facility] | | [...] | | | | | [place] [address] | | + + + + + | Hunter Jackson | ECON | [place] | | + + + + + | Wes Jackson | ECON | [place], [place] | | + + + + + | Oziel Jackson | ECON | [place], [place] | | + + + + [...] [place], | | | | | | [address] | [place] [address] | | | | | | Phone: | Phone: | | | | | | [phone] | [phone] | | | | | | Fax: | Fax: | | | | | | [phone] | [phone] | +--------+ + + + + + [...] + + | 06/16/ | Office | [facility] | Rodolfo Cruz, | Essential | | 2015 | Visit | MEDICINE [facility] | [address] | hypertension | | | | [facility] | [place] | (Primary Dx); | | | | [place] [address] | [address] | Anemia; Depression | | | | [phone] | | with anxiety; | | | [...] our last visit, seen at ER in [place]. 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 RTC 3 weeks. lexapro trial. documented in [...] STREETER | | | | | | [address] | | | | | | | | +--------+---------+ + + + | 11/21/ | Office | Cardiology | Yesi, | | | 2019 | Visit | | JOSE ALBERTO Linder [address] | | | | | | [place], | | | | | | [place] [address] | | | | | | [phone] | | | | | | | [...] + | [facility] | [address] | [place] | [phone] | | [facility] | | [address] | | | - LABORATORY | | | | + + + + + | [facility] | [address] | [place], [place] | | | [facility] | | [address] | | | - LABORATORY | | [...] samples are screened | uIU/mL | [facility] | | | | using a 2nd [...] [address] | [place] | [phone] | | [facility] | | [address] | | | - LABORATORY | | | | + + + + + | [facility] | [address] | [place] | | | [facility] | | [address] | | | - LABORATORY | | [...] mL/min/1.73m2 | [facility] | | | [place] | RATE,ESTIMATED | | MEDICAL | | | | mL/min/1.90i5Wyma than | | CENTER - | | [...] | 9.8 | 8.3 - 10.5 | [facility] | | | | | mg/dL | [facility] | | | | | | MEDICAL | | | | | | CENTER - | | | | | | LABORATORY | | + + + + + + | Albumin | 4.0 | 3.2 - 5.0 g/dL | [facility] | | | | | | [facility] | | | | | | [...] + | [facility] | [address] | [place] | [phone] | | [facility] | | [address] | | | - LABORATORY | | | | + + + + + | [facility] | [address] | [place] | | | [facility] | | [address] | | | - LABORATORY | | [...] - 1.030 | [facility] | | | [place] | | | [facility] | | [...] + | [facility] | [address] | [place] | [phone] | | [facility] | | [address] | | | - LABORATORY | | | | + + + + + | [facility] | [address] | [place], [place] | | | [facility] | | [address] | | | - LABORATORY | | [...] [address] | [place] | [phone] | | [facility] | | [address] | | | - LABORATORY | | | | + + + + + | [facility] | [address] | [place] | | | [facility] | | [address] | | | - LABORATORY | | [...] | | Monocytes | | K/uL | [facility] | | | | | | MEDICAL | | | | | | CENTER - | | | | | | LABORATORY | | + + + + + + | Absolute | 0.20 | 0.00 - 0.40 | [facility] | | | Eosinophils | | K/uL | [facility] | [...] ST. | [address] | [place] | [phone] | | [facility] | | [address] | | | - LABORATORY | | | | + + + + + | [facility] | [address] | [place], [place] | | | [facility] | | [address] | | | - LABORATORY | | [...] | Estimated | 117 | mg/dL | [facility] | | | Average | | | [...] [address] | [place] | [phone] | | [facility] | | [address] | | | - LABORATORY | | | | + + + + + | [facility] | [address] | [place], [place] | | | [facility] | | [address] | | | - LABORATORY | | [...]
--- OUTSIDE RECORDS SUMMARY | ~2019-05-18 | XMS | Encounter Summary ---
Demographics + + + | Address | [address] | | | [place] [address] | + + + | Home Phone [...] Author | [facility] | | | and [place] | + + + | Organization | [facility] | | [...] | | | | | [place] [address] | | + + + + + | Hunter Jackson | ECON | [place] | | + + + + + | Wes Jackson | ECON | [place], [place] | | + + + + + | Oziel Jackson | ECON | [place], [place] | | + + + + + Care Team Providers + +------+ + | Care Rayon Winder Name | Role | Phone | + +------+ + PCP | Unavailable | + +------+ + Encounter Details +--------+ + + + + | Date | Type | Department | Care Team | Description | +--------+ + + + + | 02/19/ | [facility] | [facility] | Rodolfo Cruz, | | | 2010 | Encounter | MED CTR LABORATORY | [address] | | | | | [address] [place] | [place], [place] | | | | | [place] | [address] | | | | | [address] | | | | | | [phone] | | | +--------+ + + + [...] STREETER | | | | | | [address] | | | | | | | | +--------+---------+ + + + | 11/21/ | Office | Cardiology | Yesi, | | | 2019 | Visit | | JOSE ALBERTO Linder [address] | | | | | | [place], | | | | | | [place] [address] | | | | | | [phone] | | | | | | | [...] [address] | [place] | [phone] | | [facility] | | [address] | | | - LABORATORY | | | | + + + + + | [facility] | [address] | [place] | | | [facility] | | [address] | | | - LABORATORY | | [...] - 1.030 | [facility] | | | [place] | | | [facility] | | [...] | | ? | | | [facility] | | | | | | [...] + | [facility] | [address] | [place] | [phone] | | [facility] | | [address] | | | - LABORATORY | | | | + + + + + | [facility] | [address] | [place] | | | [facility] | | [address] | | | - LABORATORY | | [...] performed on the Adebayo | uIU/mL | [facility] | | | | [facility] | | MEDICAL | | | [...] + | [facility] | [address] | [place] | [phone] | | [facility] | | [address] | | | - LABORATORY | | | | + + + + + | [facility] | [address] | [place], [place] | | | [facility] | | [address] | | | - LABORATORY | | [...] [address] | [place] | [phone] | | [facility] | | [address] | | | - LABORATORY | | | | + + + + + | [facility] | [address] | [place] | | | [facility] | | [address] | | | - LABORATORY | | [...] | >60Comment: For | >60 mL/min/A | [facility] | | | GFR | -Americans, | [...] + | [facility] | [address] | [place] | [phone] | | [facility] | | [address] | | | - LABORATORY | | | | + + + + + | [facility] | [address] | [place] | | | [facility] | | [address] | | | - LABORATORY | | [...] [address] | [place] | [phone] | | [facility] | | [address] | | | - LABORATORY | | | | + + + + + | [facility] | [address] | [place] | | | [facility] | | [address] | | | - LABORATORY | | | | + + + + + documented in this encounter Visit Diagnoses Not on filedocumented in this encounter"
--- OUTSIDE RECORDS SUMMARY | ~2019-05-18 | XMS | Encounter Summary ---
Demographics + + + | Address | [address] | | | [place] [address] | + + + | Home Phone [...] | Author | [facility] | | | and [place] | + + + | Organization | [facility] | [...] | | | | | [place] [address] | | + + + + + | Hunter Jackson | ECON | [place] | | + + + + + | Wes Jackson | ECON | [place], [place] | | + + + + + | Oziel Jcakson | ECON | [place], [place] | | + + + + + Care Team Providers + +------+ + | Care Maintainability Engineer Name | Role | Phone | [...] + | 09/24/ | Telephone | [facility] | Rodolfo Cruz, | Therapy Daily | | 2012 | | MEDICINE [facility] Sravan | MD [address] | Treatment | | | | [place] | [place] [address] | | | | | [place] [address] | [address] | | | | | [phone] | | | +--------+ + + + [...] | | | | | | [place] [address] | | | | | | [phone] | | | | | | | | +--------+---------+ + + + documented as of this encounter Visit Diagnoses Not on filedocumented in this encounter"
--- OUTSIDE RECORDS SUMMARY | ~2019-05-18 | XMS | Encounter Summary ---
Demographics + + + | Address | [address] | | | [place] [address] | + + + | Home Phone [...] | Author | [facility] | | | and [place] | + + + | Organization | [facility] [...] | | | | | [place] [address] | | + + + + + | Hunter Jackson | ECON | [place] | | + + + + + | Wes Jackson | ECON | [place], [place] | | + + + + + | Oziel Jackson | ECON | [place], [place] | | + + + + + Care Team Providers + +------+ + | Care Hot Die Picker Name | Role | Phone | + +------+ + | Rodolfo Cruz MD | PCP | | + +------+ + Encounter Details +--------+ + + + + | Date | Type | Department | Care Team | Description | +--------+ + + + + | 07/07/ | Hospital | [facility] | Rodolfo Cruz, | Pain | | 2014 | Encounter | MED CTR DIONE XRAY | MD [address] | | | | | [address] | [address] [address] | | | | | [place] | [address] | | | | | [address] | | | | | | [phone] | | | +--------+ + + + [...] [place] | | | | | | [address] | | | | | | | | +--------+---------+ + + + | 11/21/ | Office | Cardiology | Yesi, | | | 2019 | Visit | | JOSE ALBERTO Linder [address] | | | | | | [place], | | | | | | [place] [address] | | | | | | [phone] | | | | | | | [...] + | [facility] | [address] | [place], [place] | [phone] | | [facility] | | [address] | | | - IMAGING | | [...] to upper thoracic spine, similar to | [facility] | | the CT from 02/22/2014. [...] + | [facility] | [address] | [place] | [phone] | | [facility] | | [address] | | | - IMAGING | | | | + + + + + documented in this encounter Visit Diagnoses + + | Diagnosis | + + | Pain Generalized pain | + + documented in this encounter"
--- OUTSIDE RECORDS SUMMARY | ~2019-05-18 | XMS | Encounter Summary ---
Demographics + + + | Address | [address] | | | [place] [address] | + + + | Home Phone [...] | Author | [facility] | | | and [place] | + + + | Organization | [facility] | | | and [place] | + + + | Address | Unknown | + + + | Phone | Unavailable | + + + Support + + + + + | Name | Relationship | Address | Phone | + + + + + | Osmin Jackson | ECON | [address] | | | | | [place] [address] | | + + + + + | Hunter Jackson | ECON | [place] | | + + + + + | Wes Jackson | ECON | [place], [place] | | + + + + + | Oziel Jackson | ECON | [place], [place] | | + + + + + Care Team Providers + +------+ + | Care Health Care Sanitary Technician Name | Role | Phone | [...] | 08/16/ | Refill | [facility] | Rodolfo Cruz, | Medication Refill | | 2016 | | MEDICINE [address] | [address] | | | | | [place] | [address] [address] | | | | | [place] [address] | [address] | | | | | [phone] | | | +--------+--------+ + + + [...] | | | | | | [place] [address] | | | | | | [phone] | | | | | | | | +--------+---------+ + + + documented as of this encounter Visit Diagnoses + + | Diagnosis | + + | Insomnia, unspecified insomnia - Primary | + + documented in this encounter"
--- OUTSIDE RECORDS SUMMARY | ~2019-05-18 | XMS | Encounter Summary ---
Demographics + + + | Address | [address] | | | [place] [address] | + + + | Home Phone [...] Author | [facility] | | | and [place] | + + + | Organization | [facility] | [...] [place] | | | | | [place] [address] | | + + + + + | Hunter Jackson | ECON | [place] | | + + + + + | Wes Jackson | ECON | [place], [place] | | + + + + + | Oziel Jackson | ECON | [place], [place] | | + + + + + Care Team Providers + +------+ + | Care Lunchroom Monitor Name | Role | Phone | + [...] | Cervical | [place], | [address] | | | | | radiculopath | Harsha Moreno MD | [place], | | | | | y | [address] | [place] | | | | | Procedures | [facility] | [address] | | | | | [place] NJ[place] | [place] | Phone: | | | | | DX/THER SBST | [address] | [phone] | | | | | INTRLMNR | Phone: | Fax: | | | | | CRV/THRC | [phone] | [phone] | | | | | W/IMG GDN | Fax: | | | | | | [place] | [phone] | | | | | | TRIAMCINOLON | | | | | | | E ACET INJ | | | | | | | NOS, 10 MG | | | | | | | Appt 08/29- | | | | | | | C7-T1 ILESI | | | +--------+--------+ + + + + Encounter Details +--------+ + + + + | Date | Type | Department | Care Team | Description | +--------+ + + + + | 08/29/ | Hospital | [facility] | Cassidycz, | Cervical | | 2017 | Encounter | MED CTR XRAY [address] | [address] | radiculopathy | | | | [address] [place] | [facility], | (Primary Dx); DDD | | | | [place] [address] | [place] [address] | (degenerative disc | | | | [phone] | [phone] | disease), cervical; | | | | | | Foraminal stenosis | | | | | Training Project [employer], [facility] | of cervical region; | | | | | | Stenosis of cervical | | | | | | spine | +--------+ + + + + Social [...] +---------+ + + | Blood Pressure | 185/79 | 08/29/2016 1:26 PM | | | | | PDT | | + +---------+ + + | Pulse | 74 | 08/29/2016 1:26 PM | | | | | PDT [...] STREETER | | | | | | [id number] | | | | | | | | +--------+---------+ + + + | 11/21/ | Office | Cardiology | Yesi, | | | 2019 | Visit | | JOSE ALBERTO Linder [address] | | | | | | [place] | | | | | | [place] [address] | | | | | | [phone] | | | | | | | | +--------+---------+ + + + documented as of this encounter Procedures + +--------+ + + + | Procedure Name | Priori | Date/Time | Associated Diagnosis | Comments | | | ty | | | | + +--------+ + + + | FL EPIDURAL STEROID | Routin | 08/29/2016 | DDD (degenerative | Results for this | | INJ CERVICAL | e | 1:10 PM | disc disease), | procedure are in the | | THORACIC | | PDT | cervical Foraminal | results section. | | INTERLAMINAR | | | stenosis of cervical | | | | | | region Stenosis of | | | | | | cervical spine | | + +--------+ + + + [...] presents to the fluoroscopy suite for a [facility] | | fluoroscopically-guided C7-T1 interlaminar epidural [...] + + | Performing | Address | City/State/[facility] | Phone Number | | Organization | | | | + + + + + | [address] | [address] | [place] | [phone] | | [facility] | | [address] | | | - IMAGING | | [...] +------+------+------+ | betamethasone (CELESTONE | Given | 08/30/19 | 9 mg | | | | SOLUSPAN) injection 9 mg 9 mg, | | 17 1:19 | | | | | Other, ONCE, [facility] 08/29/16 at 1330, | | PM PDT | | | | | For 1 dose, Shake well. Not for | | | | | | | IV use., | | | | | | + +--------+ +------+------+------+ +---+---+ | | | +---+---+ + +-------+ +-------+---+---+ | iohexol (OMNIPAQUE 300) 300 | Given | 08/30/19 | 4 mLs | | | | mg/mL injection 4 mL 4 mL, | | 17 1:17 | | | | | Other, ONCE, Roxy 08/29/16 at 1330, | | PM PDT | | | | | For 1 dose | | | | | | + +-------+ +-------+---+---+ +---+---+ | | | +---+---+ + +-------+ +-------+---+---+ | lidocaine buffered 1% injection | Given | 08/30/19 | 5 mLs | | | | 5 mL 5 mL, Other, ONCE, Roxy | | 17 1:15 | | | | | 17 at 1330, For 1 dose | | PM PDT | | | | + +-------+ +-------+---+---+ +---+---+ | | | +---+---+ documented in this encounter"
--- OUTSIDE RECORDS SUMMARY | ~2019-05-18 | XMS | Encounter Summary ---
Demographics + + + | Address | [address] | | | [place] [address] | + + + | Home Phone [...] + | Author | [facility] | | | and [place] | + + + | Organization | [facility] | [...] [place] | | | | | [place] [address] | | + + + + + | Hunter Jackson | ECON | [place] | | + + + + + | Wes Jackson | ECON | [place], [place] | | + + + + + | Oziel Jackson | ECON | [place], [place] | | + + + + + Care Team Providers + +------+ + | Care Welding Rod Coater Name | Role | Phone | + +------+ + | Gunderson, Kellie PA | PCP | | + +------+ + Encounter Details +--------+ + + + + | Date | Type | Department | Care Team | Description | +--------+ + + + + | 05/09/ | Imaging | [facility] | Provider, | | | 2016 | Exam | MED CTR EXTERNAL | [address] | | | | | IMAGING | [place] | | | | | [phone] | [place] [address] | | +--------+ + + + + [...] STREETER | | | | | | [address] | | | | | | | | +--------+---------+ + + + | 11/21/ | Office | Cardiology | Yesi, | | | 2019 | Visit | | JOSE ALBERTO Linder [address] | | | | | | [place], | | | | | | [place] [address] | | | | | | [phone] | | | | | | | | +--------+---------+ + + + documented as of this encounter Procedures + +--------+ + + + | Procedure Name | Priori | Date/Time | Associated Diagnosis | Comments | | | ty | | | | + +--------+ + + + | DEXA BONE DENSITY | Routin | 03/06/2016 | | Results for this | | STUDY LATIA MARK | e | 12:50 PM | | procedure are in the | | ASSESSMENT | | PDT | | results section. | + +--------+ + + + documented in this encounter Results DEXA Bone Density Study WO Ravit JAS [place] (03/06/2016 12:50 PM PDT) + + | Specimen | + + | | + + + + + | Narrative | Performed At | + + + | External films | [facility] | | for comparison only - no result from Saskia. | | + + + + +---------+ + + | Performing | Address | City/State/Zipcode | Phone Number | | Organization | | | | + +---------+ + + | [facility] | | | | + +---------+ + + documented in this encounter Visit Diagnoses Not on filedocumented in this encounter"
--- OUTSIDE RECORDS SUMMARY | ~2019-05-18 | XMS | Encounter Summary ---
Demographics + + + | Address | [address] | | | [place] [address] | + + + | Home Phone [...] + | Author | [facility] | | | and [place] | + + + | Organization | [facility] | | | and [place] | + + + | Address | Unknown | + + + | Phone | Unavailable | + + + Support + + + + + | Name | Relationship | Address | Phone | + + + + + | Osmin Jackson | ECON | [address] | | | | | [place] [address] | | + + + + + | Hunter Jackson | ECON | [place] | | + + + + + | Wes Jackson | ECON | [place], [place] | | + + + + + | Oziel Jackson | ECON | [employer], [place] | | + + + + + Care Team Providers + +------+ + | Care Financial Assistant Name | Role | Phone | [...] | JOSE ALBERTO Linder | [address] | | | | | type | [address] | [place], | | | | | Procedures | [address] [place] | [place] | | | | | [place] Nuclear | [place], | [address] | | | | | Stress Test | [place] | Phone: | | | | | (Vasodilator | [address] | [phone] | | | | | ) CHG | Phone: | Fax: | | | | | MYOCARDIAL | [phone] | [phone] | | | | | SPECT | Fax: | | | | | | MULTIPLE | [phone] | | | | | | STUDIES CA | | | | | | | CV STRS TST | | | | | | | XERS&/OR RX | | | | | | | CONT ECG W/O | | | | | | | I&R CA | | | | | | | [...] + + | 10/16/ | Hospital | [facility] | [place], | Chest pain, | | 2018 | Encounter | MED CTR NUCLEAR | Niyah, PACKAGER [employer] WEIGHER [address] | unspecified type | | | | MEDICINE [address] | [address], | | | | | [address] [place], | [place] [address] | | | | | [place] [address] | [phone] | | | | | [phone] | | | +--------+ + + + [...] STREET[place] | | | | | | [address] | | | | | | | | +--------+---------+ + + + | 11/21/ | Office | Cardiology | Yesi, | | | 2020 | Visit | | JOSE ALBERTO Linder [address] | | | | | | [address], | | | | | | [place] [address] | | | | | | [phone] | | | | | | | [...] 76 %. Signed by: Irina Simms [facility] | | | 10/16/2017, 14:56 | | + + + + + --+ | Narrative | Performed At | + + --+ | | [facility] | | NUCLEAR MEDICINE STRESS TEST REPORT Patient Name: Soumya Jackson | | | Study Date: 10/16/2017 Primary Care Provider: FLORA Morgan MRN: | | | [id number] : 1935 Age: 82 y.o. Gender: female [...] | | | | | | Starting [facility] 10/16/17 at 0947, For | | | | | | | 1 dose, Nuclear Medicine | | | | | | + +--------+ + +------+------+ +---+---+ | | | +---+---+ documented in this encounter"
--- OUTSIDE RECORDS SUMMARY | ~2019-05-18 | XMS | Encounter Summary ---
Demographics + + + | Address | [address] | | | [place] [address] | + + + | Home Phone [...] | Author | [facility] | | | and [place] | + + + | Organization | [facility] | | | [...] [place] | | | | | [place] [address] | | + + + + + | Hunter Jackson | ECON | [place] | | + + + + + | Wes Jackson | ECON | [place], [place] | | + + + + + | Oziel Jackson | ECON | [place], [place] | | + + + + + Care Team Providers + +------+ + | Care Departmental Buyer Name | Role | Phone | + [...] | | | | | artery | [address] | [address], | | | | | disease) | [place], | [place] [address] | | | | | Procedures | [place] [address] | Phone: | | | | | Has CAD and | Phone: | [phone] | | | | | needs to be | [phone] | Fax: | | | | | avaluated | Fax: | [phone] | | | | | for bypass | [phone] | | | | | | surgery. | | | +--------+--------+ + + + + Encounter Details +--------+---------+ + + + | Date | Type | Department | Care Team | Description | +--------+---------+ + + + | 10/31/ | Office | [facility] | [place], | Coronary artery | | 2017 | Visit | [facility] | MD [address] | disease of menominee | | | | [facility] [address] [place] | artery of [place]om[place] | | | | [address] | [id number] | heart with stable | | | | [place] | | angina pectoris | | | | [address] | | ([facility]) (Primary Dx) | | | | [phone] | | | +--------+---------+ + + + [...] STREETER | | | | | | [address] | | | | | | | | +--------+---------+ + + + | 11/21/ | Office | Cardiology | Yesi, | | | 2019 | Visit | | JOSE ALBERTO Linder [address] | | | | | | [place] | | | | | | [place] [address] | | | | | | [phone] | | | | | | | | +--------+---------+ + + + documented as of this encounter Visit Diagnoses + + | Diagnosis | + + | 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
--- OUTSIDE RECORDS SUMMARY | ~2019-05-18 | XMS | Encounter Summary ---
Demographics + + + | Address | [address] | | | [place] [address] | + + + | Home Phone [...] | [facility] | | | and [place] | + + + | Organization | [facility] | | | and [...] | | | | | [place] [address] | | + + + + + | Hunter Jackson | ECON | [place] | | + + + + + | Wes Jackson | ECON | [place], [place] | | + + + + + | Oziel Jackson | ECON | [place], [place] | | + + + + + Care Team Providers + +------+ + | Care Good Humor Vendor Name | Role | Phone | + [...] Description | +--------+---------+ + + + | 05/23/ | Office | [facility] | Yesi, | Hypothyroidism, | | 2016 | Visit | CARDIOLOGY [address] | JOSE ALBERTO Linder [address] | unspecified | | | | [place], | [place], | hypothyroidism type | | | | [place] [address] | [place] [address] | (Primary Dx); | | | | [phone] | [phone] | Hyperlipidemia, | | | | | | unspecified | | | | | | hyperlipidemia; | | | | | | Essential [...] + | Blood Pressure | 120/62 | 05/23/2015 12:41 PM | | | | | PST | | + + + + + | Pulse | 68 | 05/23/2015 12:41 PM | | | | | PST | | + + + + + | Temperature | - | - | | + + + + + | Respiratory Rate | 16 | 05/23/2015 12:41 PM | | | | | PST | | + + + + + | Oxygen Saturation | - | - | | + + + + + | Inhaled Oxygen | - | - | | | Concentration | | | | + + + + + | Weight | 85.7 kg (189 lb) | 05/23/2015 12:41 PM | | | | | PST | | + + + + + | Height | 162.6 cm (5' 4") | 05/23/2015 12:41 PM | | | | | PST | | + + + + + | Body Mass Index | 32.44 | 05/23/2015 12:41 PM | | | | | PST | | + + + + + documented in this encounter Progress Notes Niyah Padilla ARNP - 05/23/2015 12:32 PM PSTFormatting of this note might be different f rom the original. PATIENT NAME: Soumya Jackson : 1935: AGE: 79 y.o. PRIMARY CARE: Rodolfo Cruz MD OUTPATIENT FOLLOW UP VISIT Date of Service: 05/23/2015 HISTORY OF PRESENT ILLNESS: Soumya Jackson is a 79 y.o. female with a history of essential moderate aortic valve insu fficiency, hypertension, osteoarthritis, hypothyroidism, dyslipidemia, elevated CRP. She is being seen today for follow up hypertension and aortic valve insufficiency. She was last seen 11/17/2014 at which time she was to increase amlodipine to 10 mg once a d ay and do a blood pressure log with a follow-up appointment in 6 months. Patient did not li ke the way she felt on the higher dose of amlodipine. She felt like she was to "unsteady oi n her feet and she was afraid of falling". She decreased her dose to 5 mg per day and did a [facility] blood pressure log that showed her blood pressure was well controlled. She also stop ped taking her atorvastatin because it was "making me loopy". Since that time, for the most part she has been feeling "well". She has had a good energy level. She tries to stay activ e. She goes to the club and swims and does swimming aerobics 3-4 times a week She enjoys h anging out with friends and still has a part-time job at this point in her spare time. She has not had any chest pain or discomfort at rest or with exertion. She has not noticed salvatore rtness of breath. She has not had any lightheadedness or dizziness. She has not noticed pa lpitations. She has not had leg swelling. She is able to sleep laying down at night withou t any symptoms of shortness of breath. She has no cardiac complaints. She is concerned abo ut her thyroid because she started to notice symptoms that happen when her thyroid level get s low.. MEDICAL, SURGICAL, AND PERSONAL HISTORY Past Medical, Surgical, Family, and Social History are reviewed in EPIC. CURRENT PROBLEMS Patient Active Problem List Diagnosis Hypothyroidism VAGINITIS, ATROPHIC Hyperlipidemia DIZZINESS OSTEOPOROSIS Osteoarthritis Hepatitis A in 1967 [...] of lumbar region Elevated troponin Essential hypertension Other specified anemias Murmur Neuropathy Tinea corporis Generalized anxiety disorder URI (upper respiratory infection) CURRENT MEDICATIONS Current Outpatient Prescriptions Medication Sig Dispense Refill albuterol 90 mcg/puff inhaler 2 puff po q 4 hours prn 1 Inhaler 0 amLODIPine (NORVASC) 5 mg tablet Take 5 mg by mouth Daily. atorvaSTATin (LIPITOR) 10 mg tablet Take 1 tablet by mouth nightly. (Patient taking dif ferently: Take 10 mg by mouth nightly. PATIENT STATED NO LONGER TAKING THIS MEDICATION. STAT ED ON 05/23/2015.) 30 tablet 11 BIOTIN PO Take 500 [...] Lightheaded = No OBJECTIVE: PHYSICAL EXAM BP 120/62 mmHg | Pulse 68 | Resp 16 | Ht 1.626 m (5' 4") | Wt 85.73 kg (189 lb) | BMI 32.43 kg/m2 Physical Exam Constitutional: She appears well-developed [...] xhibit a depressed mood. ECG: I personally reviewed ECG tracing from 11/2014. LAB RESULTS: LIPID Lab Results Component Value Date CHOL 179 10/22/2013 TRIG 80 10/22/2013 HDL 62 10/22/2013 LDL 101 10/22/2013 CHOLHDL 3.2 05/19/2015 LDLEX 125* 05/19/2015 HDLEX 63.5 05/19/2015 TRIGEX 80 05/19/2015 CHOLEX 204* 05/19/2015 CHEMISTRY Lab Results Component Value Date GLU 93 03/23/2015 NA 137 03/23/2015 K 4.3 03/23/2015 CL 99 03/23/2015 CO2 29 03/23/2015 CALCIUM 9.6 03/23/2015 ALKPHOS 63 03/23/2015 AST 20 03/23/2015 ALT 13 03/23/2015 BILITOT 0.5 03/23/2015 CREA 0.63 03/23/2015 CREA 0.59 03/23/2015 BUN 9 03/23/2015 EGFR 60 09/03/2012 HEMATOLOGY Lab Results Component Value Date WBC 10.2 03/15/2015 HGB 14.5 03/15/2015 HCT 44.1 03/15/2015 PLT 333 03/15/2015 I reviewed records from PCP for office visit on 03/15/2015. ASSESSMENT: 1. Essential hypertension A. Today, blood pressure is well controlled. There is no signs and symptoms of overt conge stive heart failure. She remains physically active and exercises on a regular basis. She i s in a class I of [place] [employer] functional class. There is no fluid retention on physical examination. 2. Heart murmur due to aortic valve insufficiency A. Echocardiogram, 11/03/2013 shows normal LV size and systolic function with LVEF 63%, mil d aortic, mitral, and tricuspid insufficiency, RVSP 43-48 mm mercury, borderline to mild emmanuelle trial enlargement, compared to patient's prior study 2010, no significant changes are noted. B. Echocardiogram 10/25/14 shows, normal left ventricular size, wall thickness and motion, preserved left ventricular systolic function, LVEF is 65-70%, grade 1 left ventricular pérez tolic dysfunction, mildly thickened trileaflet aortic valve with adequate opening, there is a mild to moderate aortic valve insufficiency, mildly thickened and calcified mitral valve w ith a mild mitral valve regurgitation, moderate mitral annular calcification, mild tricuspid valve regurgitation, mild pulmonary hypertension with a peak systolic pressure of 35-40 mmH g, when compared to echocardiography on 11/03/13, there is no significant changes. 3. Dyslipidemia and elevated CRP A. CRP is 9.6 on 08/03/14. Patient discontinued the atorvastatin due to side effects and s he is not willing to try any other statins at this point. PLAN: 1. Patient is doing well from cardiac standpoint. She will continue same therapeutic medi nicolas regimen and physical activity. She has been recommended to take some fish oil 1200 mg b y mouth daily to help with her cholesterol as well as diet modifications 2. She will follow up in 1 year, or sooner with concerns. Portions of this chart may have been created with [employer] voice recognition software. Occasi onal wrong-word or [...] [place] | | | | | | [id number] | | | | | | | | +--------+---------+ + + + | 11/21/ | Office | Cardiology | Yesi, | | 2019 | Visit | | Niyah, SALVAGE GRINDER [address] | | | | | | [place], | | | | | | [place] [address] | | | | | | [phone] | | | | | | | | +--------+---------+ + + + documented as of this encounter Results TSH (05/23/2015 1:45 PM [...] + | [facility] | [address] | [place] | [phone] | | [facility] | | [address] | | | - LABORATORY | | [...] [address] | [place] | [phone] | | [facility] | | [address] | | | - LABORATORY | | | | + + + + + documented in this encounter Visit Diagnoses + + | Diagnosis | + + | Hypothyroidism, unspecified hypothyroidism type - Primary | + + | Hyperlipidemia, unspecified hyperlipidemia | + + | Essential hypertension Unspecified essential hypertension | + + documented in this encounter
--- OUTSIDE RECORDS SUMMARY | ~2019-05-18 | XMS | Encounter Summary ---
Demographics + + + | Address | [address] | | | [place] [address] | + + + | Home Phone [...] + | Author | [facility] | | | and [place] | + + + | Organization | [facility] | [...] | | | | | [place] [address] | | + + + + + | Hunter Jackson | ECON | [place] | | + + + + + | Wes Jackson | ECON | [place], [place] | | + + + + + | Oziel Jackson | ECON | [place], [place] | | + + + + + Care Team Providers + +------+ + | Care Branch Sales And Service Representative Name | Role | Phone [...] | [address] | | | | | [address] | | | | | | [phone] | | | +--------+--------+ + + + [...] | | | | | | [place] [address] | | | | | | [phone] | | | | | | | | +--------+---------+ + + + documented as of this encounter Visit Diagnoses + + | Diagnosis | + + | Hypothyroidism - Primary Unspecified hypothyroidism | + + documented in this encounter"
--- OUTSIDE RECORDS SUMMARY | ~2019-05-18 | XMS | Encounter Summary ---
Demographics + + + | Address | [address] | | | [place] [address] | + + + | Home Phone [...] + + | Author | [facility] | | | and [place] | + + + | Organization | [facility] | | [...] | | | | | [place] [address] | | + + + + + | Hunter Jackson | ECON | [place] | | + + + + + | Wes Jackson | ECON | [place], [place] | | + + + + + | Oziel Jackson | ECON | [place], [place] | | + + + + + Care Team Providers + +------+ + | Care Industrial Commercial Groundskeeper Name | Role | Phone | + +------+ + | Rodolfo Cruz MD | PCP | | + +------+ + Reason for Visit + + + | Reason | Comments | + + + | Blood Pressure Check | Log from 06/01/15 till 06/13/15 | | (Screening) | | + + + Encounter Details +--------+ + + + + | Date | Type | Department | Care Team | Description | +--------+ + + + + | 06/22/ | Telephone | [facility] | Yesi | Blood Pressure Check | | 2015 | | CARDIOLOGY [address] | JOSE ALBERTO Linder [address] | (Screening) (Log | | | | [place], | [place], | from 06/01/15 till | | | | [place] [address] | [place] [address] | 06/13/15) | | | | [phone] | [phone] | | | | | | | [...] STREET[place] | | | | | | [address] | | | | | | | | +--------+---------+ + + + | 11/21/ | Office | Cardiology | Yesi, | | | 2020 | Visit | | JOSE ALBERTO Linder [address] | | | | | | [place], | | | | | | [place] [address] | | | | | | [phone] | | | | | | | | +--------+---------+ + + + documented as of this encounter Visit Diagnoses + + | Diagnosis | + + | Essential hypertension - Primary Unspecified essential hypertension | + + documented in this encounter"
--- OUTSIDE RECORDS SUMMARY | ~2019-05-18 | XMS | Encounter Summary ---
Demographics + + + | Address | [address] | | | [place] [address] | + + + | Home Phone [...] | [facility] | | | and [place] | + + + | Organization | [facility] [...] | | | | | [place] [address] | | + + + + + | Hunter Jackson | ECON | [place] | | + + + + + | Wes Jackson | ECON | [place], [place] | | + + + + + | Oziel Jackson | ECON | [place], [place] | | + + + + + Care Team Providers + +------+ + | Care Tungsten Refiner Name | Role | Phone | [...] Services | Medicine and | Midline | Roodlfo Reilly MD | Harsha Moreno MD | | | Required | Rehabilitatio | thoracic | [address] | [address] | | | | n | back pain | [address] [place] | [address] [place] | | | | | | [place], [place] | [place], [place] | | | | | | [address] | [address] Phone: | | | | | | Phone: | [phone] | | | | | | [phone] | Fax: | | | | | | Fax: | [phone] | | | | | | [phone] | | +--------+ + + + + + Evaluate & Treat (Routine) +--------+ + + + + + | Status | Reason | Specialty | Diagnoses / | Referred By | Referred To | | | | | Procedures | Contact | Contact | +--------+ + + + + + | Closed | Specialty | Physical | Diagnoses | Morasch, | [facility] | | | Services | Therapy / | Midline | Rodolfo Reilly MD | Pt Op [address] | | | Required | Rehabilitatio | thoracic | [address] | [place] | | | | n | back pain | [address] [place] | [place], | | | | | [address] | [place] | [place] [address] | | | | | (ICD-9-CM) - | [address] | Phone: | | | | | Midline | Phone: | [phone] | | | | | thoracic | [phone] | Fax: | | | | | back pain | Fax: | [phone] | | | | | Procedures | [phone] | | | | | | pt eval | | | +--------+ + + + + + Reason for Visit + + + | Reason | Comments | + + + | Back Pain | States medication is not helping, only sleeps about 3-4 hours | + + + | Medication | | | Management | | + + + Encounter Details +--------+---------+ + + + | Date | Type | Department | Care Team | Description | +--------+---------+ + + + | 07/18/ | Office | [facility] | Rodolfo Cruz, | Midline thoracic | | 2015 | Visit | MEDICINE [address] | [address] | back pain (Primary | | | | [address] [place] | [place] | Dx); Depression with | | | | [place] [address] | [address] | anxiety | | | | [phone] | | | +--------+---------+ + + + [...] + + + | Blood Pressure | 144/62 | 07/18/2014 1:33 PM | | | | | PDT | | + + + + + | Pulse | 66 | 07/18/2014 1:33 PM | | | | | PDT | | + + + + + | Temperature | 37.3 C (99.2 F) | 07/18/2014 1:33 PM | | | | | PDT | | + + + + + | Respiratory Rate | 16 | 07/18/2014 1:33 PM | | | | | PDT | | + + + + + | Oxygen Saturation | 97% | 07/18/2014 1:33 PM | | | | | PDT | | + + + + + | Inhaled Oxygen | - | - | | | Concentration | | | | + + + + + | Weight | 84.4 kg (186 lb) | 07/18/2014 1:33 PM | | | | | PDT | | + + + + + | Height | 167.6 cm (5' 6") | 07/18/2014 1:33 PM | | | | | PDT | | + + + + + | Body Mass Index | 30.02 | 07/18/2014 1:33 PM | | | | | PDT | | + + + + + documented in this encounter Progress Notes oRdolfo Cruz MD - 07/18/2014 1:39 PM PDTFormatting of this note might be different f rom the original. Subjective: Patient ID: Soumya Jackson is a 78 y.o. female. HPI Multilevel Thoracic Spine DDD, DJD, She takes one hydrocodone per day for this. She would like to try physical therapy for this. She would like to see a spine snack bar attendant. She had a nervous breakdown in the 60's, She then learned how to accomodate for this follo wing this experience. Depression. She is somewhat improved with the lexapro which she is taking half of the dose . Her friend says thought that she has in general been miserable as of late. Review of Systems Objective: Physical Exam Heent, WNL, No carotid bruit Back with TTP central spine Chest CTAB Heart RR&R /s M Abd S,NT,ND,BS+ Ext, no CCor E Assessment: 1. Midline thoracic back pain 2. Depression with anxiety Plan: Refer to PT and Dr Wright, Slowly increase the lexapro dose. Continue one a day hydrocodone. Otherwise continue current medical regimen. documented in [...] STREETER | | | | | | [id number] | | | | | | | | +--------+---------+ + + + | 11/21/ | Office | Cardiology | Yesi | | | 2019 | Visit | | JOSE ALBERTO Linder [address] | | | | | | [place] | | | | | | [place] [address] | | | | | | [phone] | | | | | | | | +--------+---------+ + + + + + +--------+ + + | Name | Type | Priori | Associated Diagnoses | Order Schedule | | | | ty | | | + + +--------+ + + | Ambulatory referral | Outpatient | Routin | Midline thoracic | Ordered: 07/18/2014 | | to Physical Therapy | Referral | e | back pain | | + + +--------+ + + | Ambulatory referral | Outpatient | Routin | Midline thoracic | Ordered: 07/18/2014 | | to Physical Medicine | Referral | e | back pain | | | Rehab | | | | | + + +--------+ + + documented as of this encounter Visit Diagnoses + + | Diagnosis | + + | Midline thoracic back pain - Primary | + + | Depression with anxiety Dysthymic disorder | + + documented in this encounter
--- OUTSIDE RECORDS SUMMARY | ~2019-05-18 | XMS | Encounter Summary ---
Demographics + + + | Address | [address] | | | [place] [address] | + + + | Home Phone [...] | Author | [facility] | | | and [place] | + + + | Organization | [facility] | [...] [place] | | | | | [place] [address] | | + + + + + | Hunter Jackson | ECON | [place] | | + + + + + | Wes Jackson | ECON | [place], [place] | | + + + + + | Oziel Jackson | ECON | [place], [place] | | + + + + + Care Team Providers + +------+ + | Care Cutter And Paster Press Clippings Name | Role | Phone | + +------+ + | Gunderson, Kellie PA | PCP | | + +------+ + Reason for Visit + + + | Reason | Comments | + + + | Follow-up | | + + + | Carotid Artery | | | Disease | | + + + Encounter Details +--------+---------+ + + + | Date | Type | Department | Care Team | Description | +--------+---------+ + + + | 02/03/ | Office | [facility] | Yesi, | Hyperlipidemia, | | 2017 | Visit | CARDIOLOGY [address] | JOSE ALBERTO [address] | mixed (Primary Dx); | | | | [place], | [place], | Valvular heart | | | | [place] [address] | [place] [address] | disease; Murmur; | | | | [phone] | [phone] | Essential | | | | | | hypertension with | | | | | | goal blood pressure | | | | | | less than 130/80; | | | | | | Aortic valve | | | | | | regurgitation, | | | | | | unspecified | | | | | | etiology; Coronary | | | | | | artery disease | | | | | | involving dry creek | | | | | | coronary artery of | | | | | | dry creek heart with | | | | | | unstable angina | | | | | | pectoris (HCC); | | | | | | Transient cerebral | | | | | | ischemia, | | | | | | [...] + + + | Blood Pressure | 130/72 | 02/03/2017 1:13 PM | | | | | PDT | | + + + + + | Pulse | 64 | 02/03/2017 1:13 PM | | | | | PDT | | + + + + + | Temperature | - | - | | + + + + + | Respiratory Rate | 14 | 02/03/2017 1:13 PM | | | | | PDT | | + + + + + | Oxygen Saturation | - | - | | + + + + + | Inhaled Oxygen | - | - | | | Concentration | | | | + + + + + | Weight | 78.9 kg (174 lb) | 02/03/2017 1:13 PM | | | | | PDT | | + + + + + | Height | 162.6 cm (5' 4") | 02/03/2017 1:13 PM | | | | | PDT | | + + + + + | Body Mass Index | 29.87 | 02/03/2017 1:13 PM | | | | | PDT | | + + + + + documented in this encounter Progress Notes Niyah Key ARNP - 02/03/2017 1:30 PM PDTFormatting of this note might be differen t from the original. PATIENT NAME: Soumya Jackson : 1935: AGE: 81 y.o. PRIMARY CARE: FLORA Morgan OUTPATIENT FOLLOW UP VISIT Date of Service: 02/03/2017 HISTORY OF PRESENT ILLNESS: Soumya Jackson is a 81 y.o. female with a history of coronary artery disease post CABG 3 on 11/01/16, moderate aortic valve insufficiency, essential hypertension, osteoarthritis, hypothyroidism, dyslipidemia, elevated CRP. She is being seen today for follow up coronary a rtery disease. She was last seen 11/22/16 at which time The patient will continue with current medical michelle men. I recommend phase 2 cardiac rehab program at [facility] but she cannot do it because she lives out of town, she was recommend a therapeutic lifestyle change including walking 3 0 minutes a day, choosing healthy choices of diet , including DASH diet and weight reduction . Since that time, she has been feeling well. She has had a fair energy level. She tries to stay active. She walks a few blocks every day and goes to PT once a week. She has not gutierrez d any chest pain or discomfort at rest or with exertion. She has not noticed shortness of breath. She has not had any lightheadedness or dizziness. She has not noticed palpitations . She has noticed mild swelling at ankles by the end of the day that is resolved in the mor manas, which has been stable for her. She is able to sleep laying down at night without any symptoms of shortness of breath. She seems to be doing well. MEDICAL, SURGICAL, AND PERSONAL HISTORY Past Medical, [...] cervical Cervical radiculopathy Coronary artery disease involving dry creek coronary artery of dry creek heart with unstable angina pectoris Stress hyperglycemia [...] Positive for chills and malaise/fatigue. Negative for diaphoresis and fever . HENT: Negative for nosebleeds. Eyes: Negative for blurred vision and double vision. Respiratory: Positive for cough. Negative for shortness of breath and wheezing. Cardiovascular: Positive for chest pain (tenderness') and leg swelling (ankles). Negative f or palpitations, orthopnea and claudication. Gastrointestinal: Negative for heartburn, nausea and vomiting. Musculoskeletal: Positive for back pain, joint pain (right shoulder) and myalgias. Negative for falls. Neurological: Positive for dizziness (light headed ), tingling (numbness in the extremities ), weakness and headaches. Negative for tremors. Endo/Heme/Allergies: Bruises/bleeds easily. OBJECTIVE: PHYSICAL EXAM BP 130/72 | Pulse 64 | Resp 14 | Ht 1.626 m (5' 4") | Wt 78.9 kg (174 lb) | BMI 29.87 kg/m Physical Exam Constitutional: She appears well-developed [...] Interval:140 ms P Duration:140 ms P Horizontal Hye:-43 deg P Front Hye:60 deg Q Onset:514 ms QRSD Interval:78 ms QT Interval:384 ms QTcB:426 ms QTcF:412 ms QRS Horizontal Hye:3 deg QRS Hye:21 deg I-40 Horizontal Hye:-8 deg I-40 Front Hye:15 deg T-40 Horizontal Hye:-6 deg T-40 Front Hye:22 deg T Horizontal Hye:44 deg T Wave Hye:12 deg S-T Horizontal Hye:42 deg S-T Front Hye:22 deg Severity:- BORDERLINE ECG - INTERP:SINUS RHYTHM INTERP:PROBABLE LEFT ATRIAL ABNORMALITY Electronically signed by: PATRICK BURKETT 11-09-2016 13:17:14 LAB RESULTS reviewed during visit today primarily from [facility]: LIPID Lab Results Component Value Date [...] PLTEX 370 09/18/2016 I reviewed records from [facility] for office visit on 11/22/2016 w hich is summarized in the HPI. Above data and testing is reviewed this visit; testing below is historical data unless othe rwise specified. ASSESSMENT: 1. Coronary artery disease A. Seen at [facility] they had EKG and sent her home stating it was GERD B. Seen in the emergency room at [facility] for chest pain. She was schedule for stre ss test and discharged home. C. Stress Test 05/16/16, is maximal asymptomatic stress test, [facility] er very poor function status, achieving maximal [...] central AI, no , trace TR, trace VA, normal aorta other than mild c alcification at ST junction, normal diameter, normal PA, no effusions. H. Coronary artery bypass surgery x 3 11/01/2016 shows VERDUZCO to LAD, saphenous vein graft t o diagonal, saphenous vein graft to right coronary artery, endoscopic vein harvest, left gre ater saphenous vein by Dr. Loo. I. Today, patient has no angina or dyspnea. She is battling with insomnia and back pain i ssues. She is walking daily and goes to PT once a week. There is no palpitations, dizziness or lightheadedness. Patient can sleep on one pillow at night without difficulty breathing. There is no signs and symptoms of overt congestive heart failure.She is in a class I of N ew [place] Heart Association functional class.on physical examination there is no sign of flu id overload. 2. Essential hypertension with goal blood [...] effective; continue present plan and medications. She co uld have her atorvastatin increased and her lipid profile rechecked 2. She will follow up in 2 months, or sooner with concerns. Portions of this chart may have been created with [employer] voice recognition software. Occasi onal wrong-word or [...] [place] | | | | | | [address] | | | | | | | | +--------+---------+ + + + | 11/21/ | Office | Cardiology | Yesi, | | | 2019 | Visit | | JOSE ALBERTO Linder [address] | | | | | | [place], | | | | | | [place] [address] | | | | | | [phone] | | | | | | | [...] 130/80 | + + | Aortic valve regurgitation, unspecified etiology | + + | Coronary artery disease involving dry creek coronary artery of dry creek heart with unstable | | angina pectoris (HCC) | + + | Transient cerebral ischemia, unspecified type | + + documented in this encounter
--- OUTSIDE RECORDS SUMMARY | ~2019-05-18 | XMS | Encounter Summary ---
Demographics + + + | Address | [address] | | | [place] [address] | + + + | Home Phone [...] | Author | [facility] | | | and [place] | + + + | Organization | [facility] | [...] | | | | | [place] [address] | | + + + + + | Hunter Jackson | ECON | [place] | | + + + + + | Wes Jackson | ECON | [place], [place] | | + + + + + | Oziel Jackson | ECON | [place], [place] | | + + + + + Care Team Providers + +------+ + | Care Hospital Unit Coordinator Name | Role | Phone | + +------+ + | Rodolfo Cruz MD | PCP | | + +------+ + Encounter Details +--------+ + + + + | Date | Type | Department | Care Team | Description | +--------+ + + + + | 09/25/ | Hospital | [facility] | Rodolfo Cruz, | Essential | | 2016 | Encounter | [facility] | MD Raya DING AVGabriel | hypertension; | | | | [address] [place] | [place], [place] | Hyperlipidemia; | | | | [place], [place] | [address] | Pre-procedure lab | | | | [address] | | exam; Other | | | | [phone] | | specified | | | | | | hypothyroidism | +--------+ + + + + Social [...] + + + +---------+ + + | fluticasone | 2 sprays each | 16 g | 11 | 09/26/19 | | | (FLONASE) 50 | nostril daily. | | | 16 | 6 | | mcg/nasal | | | | | | | sprayIndications: | | | | | | | Other allergic | | | | | | | rhinitis | | | | | | + [...] prn pain, | 90 | 0 | 07/27/19 | | | HYDROcodone-acetamin | avoid routine [...] + + + +---------+ + + | Mellen 3 1000 MG | Take by mouth. [...] | | | | | | [place] | | | | | | [address] | | | | | | | | +--------+---------+ + + + | 11/21/ | Office | Cardiology | Yesi, | | | 2019 | Visit | | JOSE ALBERTO Linder [address] | | | | | | [place], | | | | | | [place] [address] | | | | | | [phone] | | | | | | | | +--------+---------+ + + + documented as of this encounter Procedures + +--------+ + + + | Procedure Name | Priori | Date/Time | Associated Diagnosis | Comments | | | ty | | | | + +--------+ + + + | LIPID PANEL | Routin | 09/26/2015 | Essential | Results for this | | | e | 10:46 AM | hypertension | procedure are in the | | | | PDT | Hyperlipidemia | results section. | + +--------+ + + + | CBC WITH | Routin | 09/26/2015 | Essential | Results for this | | DIFFERENTIAL | e | 10:46 AM | hypertension | procedure are in the | | | | PDT | | results section. | + +--------+ + + + | TSH | Routin | 09/26/2015 | Other specified | Results for this | | | e | 10:46 AM | hypothyroidism | procedure are in the | | | | PDT | | results section. | + +--------+ + + + | COMPREHENSIVE | Routin | 09/26/2015 | Essential | Results for this | | METABOLIC PANEL | e | 10:46 AM | hypertension | procedure are in the | | | | PDT | | results section. | + +--------+ + + + documented in this encounter Results TSH (09/26/2015 10:46 AM [...] + | [facility] | [address] | [place] | [phone] | | [facility] | | [address] | | | - LABORATORY | | [...] | 0.77 | 0.60 - 1.30 | [facility] | [...] mL/min/1.73m2 | [facility] | | | TANZANIAN | RATE,ESTIMATED | | MEDICAL | | | | mL/min/1.57k5Ioeq than | | CENTER - | | [...] + | [facility] | [address] | [place] | [phone] | | [facility] | | [address] | | | - LABORATORY | | | | + + + + + CBC with Differential (09/26/2015 10:46 AM PDT) + + + + + + | Component | Value | Ref Range | Performed | Pathologist | | | | | At | Signature | + + + + + + | WBC | 9.8 | 4.0 - 11.0 K/uL | [facility] [...] + | [facility] | [address] | [place] | [phone] | | [facility] | | [address] | | | - LABORATORY | | | | + + + + + Lipid Panel (09/26/2015 10:46 AM PDT) + + + + + + | Component | Value | Ref Range | Performed | Pathologist | | | | | At | Signature | + + + + + + | Triglycerid | 98 | 35 - 160 mg/dL | [facility] [...] HDL | 28 - 83 mg/dL | [facility] | | | | Reference Range as of | | [facility] | | | | January 19, 2015 | | MEDICAL | | | | Values may be 10-20% | | CENTER - | | | | lower with new, | | LABORATORY | | | | standardized method. | | | | + + + + + + | Chol/HDL | 3.1 | | [facility] | | | Ratio | | | [facility] | | | | | | MEDICAL | | | | | | CENTER - | | | | | | LABORATORY | | + + + + + + | LDL, | 127 | <=130 mg/dL | [facility] | | | Calculated | | | [facility] | | | [...] [address] | [place] | [phone] | | [facility] | | [address] | | | - LABORATORY | | | | + + + + + documented in this encounter Visit Diagnoses + + | Diagnosis | + + | Essential hypertension Unspecified essential hypertension | + + | Hyperlipidemia Other and unspecified hyperlipidemia | + + | Pre-procedure lab exam Pre-procedural laboratory examination | + + | Other specified hypothyroidism | + + documented in this encounter"
--- OUTSIDE RECORDS SUMMARY | ~2019-05-18 | XMS | Encounter Summary ---
Demographics + + + | Address | [address] | | | [place] [address] | + + + | Home Phone [...] | Author | [facility] | | | and [place] | + + + | Organization | [facility] [...] | | | | | [place] [address] | | + + + + + | Hunter Jackson | ECON | [place] | | + + + + + | Wes Jackson | ECON | [place], [place] | | + + + + + | Oziel Jackson | ECON | [place], [place] | | + + + + + Care Team Providers + +------+ + | Care Diamond Die Driller Name | Role | Phone | + [...] [facility] [place] | Ulysses Jensen, | [facility] arthritis | | 2015 | Visit | ORTHOPEDIC SURGERY | MD [address] [facility] | (Primary Dx) | | | | [address] [facility] | [place] [address] | | | | | [place] | [address] | | | | | [address] | | | | | | [phone] | | | +--------+---------+ + + + [...] [address] | | | | | | [address] | | | | | | | | +--------+---------+ + + + | 11/21/ | Office | Cardiology | Yesi, | | | 2020 | Visit | | JOSE ALBERTO Linder [address] | | | | | | [place], | | | | | | [place] [address] | | | | | | [phone] | | | | | | | | +--------+---------+ + + + documented as of this encounter Visit Diagnoses + + | Diagnosis | + + | [facility] arthritis - Primary Unspecified arthropathy, hand | + + documented in this encounter"
--- OUTSIDE RECORDS SUMMARY | ~2019-05-18 | XMS | Encounter Summary ---
Demographics + + + | Address | [address] | | | [place] [address] | + + + | Home Phone [...] | [facility] | | | and [place] | + + + | Organization | [facility] | [...] [place] | | | | | [place] [address] | | + + + + + | Hunter Jackson | ECON | [place] | | + + + + + | Wes Jackson | ECON | [place], [place] | | + + + + + | Oziel Jackson | ECON | [place], [place] | | + + + + + Care Team Providers + +------+ + | Care Agricultural Service Worker Name | Role | Phone | + +------+ + | Kellie Gunderson | PCP | | + +------+ + Encounter Details +--------+ + + + + | Date | Type | Department | Care Team | Description | +--------+ + + + + | 11/18/ | Abstract | [facility] | Yesi, | | | 2018 | | CARDIOLOGY [address] | JOSE ALBERTO [address] | | | | | [place], | [place], | | | | | [place] [id number] | [place] [phone] | | | | | [phone] | [phone] | | | | | | | [...] [address] | | | | | | [place] | | | | | | [place] [address] | | | | | | [phone] | | | | | | | | +--------+---------+ + + + documented as of this encounter Procedures + +--------+ + + + | Procedure Name | Priori | Date/Time | Associated Diagnosis | Comments | | | ty | | | | + +--------+ + + + | EXTERNAL LAB: BUN | Routin | 10/31/2018 | | Results for this | | | e | | | procedure are in the | | | | | | results section. | + +--------+ + + + | EXTERNAL LAB: | Routin | 10/31/2018 | | Results for this | | GLUCOSE | e | | | procedure are in the | | | | | | results section. | + +--------+ + + + | EXTERNAL LAB: ALT | Routin | 10/31/2018 | | Results for this | | | e | | | procedure are in the | | | | | | results section. | + +--------+ + + + | EXTERNAL LAB: AST | Routin | 10/31/2018 | | Results for this | | | e | | | procedure are in the | | | | | | results section. | + +--------+ + + + | EXTERNAL LAB: | Routin | 10/31/2018 | | Results for this | | ALKALINE PHOSPHATASE | e | | | procedure are in the | | | | | | results section. | + +--------+ + + + | EXTERNAL LAB: | Routin | 10/31/2018 | | Results for this | | BILIRUBIN, TOTAL | e | | | procedure are in the | | | | | | results section. | + +--------+ + + + | EXTERNAL LAB: | Routin | 10/31/2018 | | Results for this | | ALBUMIN | e | | | procedure are in the | | | | | | results section. | + +--------+ + + + | EXTERNAL LAB: | Routin | 10/31/2018 | | Results for this | | PROTEIN, TOTAL | e | | | procedure are in the | | | | | | results section. | + +--------+ + + + | EXTERNAL LAB: | Routin | 10/31/2018 | | Results for this | | CALCIUM | e | | | procedure are in the | | | | | | results section. | + +--------+ + + + | EXTERNAL LAB: CARBON | Routin | 10/31/2018 | | Results for this | | DIOXIDE | e | | | procedure are in the | | | | | | results section. | + +--------+ + + + | EXTERNAL LAB: | Routin | 10/31/2018 | | Results for this | | CHLORIDE | e | | | procedure are in the | | | | | | results section. | + +--------+ + + + | EXTERNAL LAB: | Routin | 10/31/2018 | | Results for this | | POTASSIUM | e | | | procedure are in the | | | | | | results section. | + +--------+ + + + | EXTERNAL LAB: SODIUM | Routin | 10/31/2018 | | Results for this | | | e | | | procedure are in the | | | | | | results section. | + +--------+ + + + | EXTERNAL LAB: CBC | Routin | 10/31/2018 | | Results for this | | | e | | | procedure are in the | | | | | | results section. | + +--------+ + + + | EXTERNAL LAB: TSH | Routin | 10/31/2018 | | Results for this | | | e | | | procedure are in the | | | | | | results section. | + +--------+ + + + | EXTERNAL LAB: EGFR | Routin | 10/31/2018 | | Results for this | | | e | | | procedure are in the | | | | | | results section. | + +--------+ + + + | EXTERNAL LAB: | Routin | 10/31/2018 | | Results for this | | CREATININE | e | | | procedure are in the | | | | | | results section. | + +--------+ + + + | COMPREHENSIVE | Routin | 10/31/2018 | | Results for this | | METABOLIC PANEL | e | | | procedure are in the | | | | | | results section. | + +--------+ + + + documented in this encounter Results Comprehensive Metabolic Panel (10/31/2018) + +-------+ + + + | Component | Value | Ref Range | Performed | Pathologist | | | | | At | Signature | + +-------+ + + + | Anion Gap | 13 | 7 - 21 mmol/L | | | + +-------+ + + + | Bun/Creatin | 16.1 | 6.0 - 28.6 | | | | ine | | | | | + +-------+ + + + | Globulin | 3.4 | 1.8 - 3.5 | | | + +-------+ + + + | Albumin/Sarah | 1.3 | 1.1 - 2.4 | | | | bulin Ratio | | | | | + +-------+ + + + + + | Specimen | + + | Blood | + + External Lab: BUN (10/31/2018) + +-------+ + + + | Component | Value | Ref Range | Performed | Pathologist | | | | | At | Signature | + +-------+ + + + | BUN, | 10 | 6 - 23 | EXTERNAL | | | External | | | LAB | | + +-------+ + + + + +---------+ + + | Performing | Address | City/State/Zipcode | Phone Number | | Organization | | | | + +---------+ + + | EXTERNAL LAB | | | | + +---------+ + + External Lab: Glucose (10/31/2018) + +---------+ + + + | Component | Value | Ref Range | Performed | Pathologist | | | | | At | Signature | + +---------+ + + + | Glucose, | 101 (A) | 70 - 100 | EXTERNAL | | | External | | | LAB | | + +---------+ + + + + +---------+ + + | Performing | Address | City/State/Zipcode | Phone Number | | Organization | | | | + +---------+ + + | EXTERNAL LAB | | | | + +---------+ + + External Lab: ALT (10/31/2018) + +-------+ + + + | Component | Value | Ref Range | Performed | Pathologist | | | | | At | Signature | + +-------+ + + + | ALT, | 18 | 7 - 52 | EXTERNAL | | | External | | | LAB | | + +-------+ + + + + +---------+ + + | Performing | Address | City/State/Zipcode | Phone Number | | Organization | | | | + +---------+ + + | EXTERNAL LAB | | | | + +---------+ + + External Lab: AST (10/31/2018) + +-------+ + + + | Component | Value | Ref Range | Performed | Pathologist | | | | | At | Signature | + +-------+ + + + | AST, | 25 | 13 - 39 | EXTERNAL | | | External | | | LAB | | + +-------+ + + + + +---------+ + + | Performing | Address | City/State/Zipcode | Phone Number | | Organization | | | | + +---------+ + + | EXTERNAL LAB | | | | + +---------+ + + External Lab: Alkaline Phosphatase (10/31/2018) + +-------+ + + + | Component | Value | Ref Range | Performed | Pathologist | | | | | At | Signature | + +-------+ + + + | ALP, | 95 | 31 - 130 | EXTERNAL | | | External | | | LAB | | + +-------+ + + + + +---------+ + + | Performing | Address | City/State/Zipcode | Phone Number | | Organization | | | | + +---------+ + + | EXTERNAL LAB | | | | + +---------+ + + External Lab: Bilirubin, Total (10/31/2018) + +-------+ + + + | Component | Value | Ref Range | Performed | Pathologist | | | | | At | Signature | + +-------+ + + + | Bilirubin, | 0.7 | 0 - 1.2 | EXTERNAL | | | Total, | | | LAB | | | External | | | | | + +-------+ + + + + +---------+ + + | Performing | Address | City/State/Zipcode | Phone Number | | Organization | | | | + +---------+ + + | EXTERNAL LAB | | | | + +---------+ + + External Lab: Albumin (10/31/2018) + +-------+ + + + | Component | Value | Ref Range | Performed | Pathologist | | | | | At | Signature | + +-------+ + + + | Albumin, | 4.4 | 3.5 - 5 | EXTERNAL | | | External | | | LAB | | + +-------+ + + + + +---------+ + + | Performing | Address | City/State/Zipcode | Phone Number | | Organization | | | | + +---------+ + + | EXTERNAL LAB | | | | + +---------+ + + External Lab: Protein, Total (10/31/2018) + +-------+ + + + | Component | Value | Ref Range | Performed | Pathologist | | | | | At | Signature | + +-------+ + + + | Protein, | 7.8 | 6 - 8.3 | EXTERNAL | | | Total, | | | LAB | | | External | | | | | + +-------+ + + + + +---------+ + + | Performing | Address | City/State/Zipcode | Phone Number | | Organization | | | | + +---------+ + + | EXTERNAL LAB | | | | + +---------+ + + External Lab: Calcium (10/31/2018) + +-------+ + + + | Component | Value | Ref Range | Performed | Pathologist | | | | | At | Signature | + +-------+ + + + | Calcium, | 9.6 | 8.5 - 10.3 | EXTERNAL | | | External | | | LAB | | + +-------+ + + + + +---------+ + + | Performing | Address | City/State/Zipcode | Phone Number | | Organization | | | | + +---------+ + + | EXTERNAL LAB | | | | + +---------+ + + External Lab: Carbon Dioxide (10/31/2018) + +-------+ + + + | Component | Value | Ref Range | Performed | Pathologist | | | | | At | Signature | + +-------+ + + + | Carbon | 28 | 19 - 31 | EXTERNAL | | | Dioxide, | | | LAB | | | External | | | | | + +-------+ + + + + +---------+ + + | Performing | Address | City/State/Zipcode | Phone Number | | Organization | | | | + +---------+ + + | EXTERNAL LAB | | | | + +---------+ + + External Lab: Chloride (10/31/2018) + +-------+ + + + | Component | Value | Ref Range | Performed | Pathologist | | | | | At | Signature | + +-------+ + + + | Chloride, | 97 | 95 - 112 | EXTERNAL | | | External | | | LAB | | + +-------+ + + + + +---------+ + + | Performing | Address | City/State/Zipcode | Phone Number | | Organization | | | | + +---------+ + + | EXTERNAL LAB | | | | + +---------+ + + External Lab: Potassium (10/31/2018) + +-------+ + + + | Component | Value | Ref Range | Performed | Pathologist | | | | | At | Signature | + +-------+ + + + | Potassium, | 4.4 | 3.6 - 5.1 | EXTERNAL | | | External | | | LAB | | + +-------+ + + + + +---------+ + + | Performing | Address | City/State/Zipcode | Phone Number | | Organization | | | | + +---------+ + + | EXTERNAL LAB | | | | + +---------+ + + External Lab: Sodium (10/31/2018) + +-------+ + + + | Component | Value | Ref Range | Performed | Pathologist | | | | | At | Signature | + +-------+ + + + | Sodium, | 134 | 132 - 143 | EXTERNAL | | | External | | | LAB | | + +-------+ + + + + +---------+ + + | Performing | Address | City/State/Zipcode | Phone Number | | Organization | | | | + +---------+ + + | EXTERNAL LAB | | | | + +---------+ + + External Lab: CBC (10/31/2018) + + + + + + | Component | Value | Ref Range | Performed | Pathologist | | | | | At | Signature | + + + + + + | WBC, | 7.4 | 4.5 - 11 | EXTERNAL | | | External | | | LAB | | + + + + + + | HGB, | 14.3 | 12 - 16 | EXTERNAL | | | External | | | LAB | | + + + + + + | HCT, | 42.5 | 35 - 45 | EXTERNAL | | | External | | | LAB | | + + + + + + | PLT, | 67.4 (A) | 140 - 440 | EXTERNAL | | | External | | | LAB | | + + + + + + | Neutrophils | 67.4 | 39 - 80 | EXTERNAL | | | %, | | | LAB | | | External | | | | | + + + + + + | Lymphocytes | 19.1 (A) | 24 - 44 | EXTERNAL | | | %, | | | LAB | | | External | | | | | + + + + + + | Monocytes | 8.2 | 0 - 12 | EXTERNAL | | | %, External | | | LAB | | + + + + + + | Eosinophils | 4.5 | 0 - 6 | EXTERNAL | | | %, | | | LAB | | | External | | | | | + + + + + + | RBC, | 4.07 | 3.8 - 5.1 | EXTERNAL | | | External | | | LAB | | + + + + + + | MCV, | 104 (A) | 81 - 99 | EXTERNAL | | | External | | | LAB | | + + + + + + | RDW, | 12.9 | 10.5 - 15 | EXTERNAL | | | External | | | LAB | | + + + + + + + +---------+ + + | Performing | Address | City/State/Zipcode | Phone Number | | Organization | | | | + +---------+ + + | EXTERNAL LAB | | | | + +---------+ + + External Lab: TSH (10/31/2018) + + + + + + | Component | Value | Ref Range | Performed | Pathologist | | | | | At | Signature | + + + + + + | TSH, | 3.00Comment: FREE T3 | 2.5 - 4.3 | EXTERNAL | | | External | | | LAB | | + + + + + + + + | Specimen | + + | Blood | + + + +---------+ + + | Performing | Address | City/State/Zipcode | Phone Number | | Organization | | | | + +---------+ + + | EXTERNAL LAB | | | | + +---------+ + + External Lab: eGFR (10/31/2018) + +-------+ + + + | Component | Value | Ref Range | Performed | Pathologist | | | | | At | Signature | + +-------+ + + + | eGFR, | 92 | | EXTERNAL | | | External | | | LAB | | + +-------+ + + + + + | Specimen | + + | Blood | + + + +---------+ + + | Performing | Address | City/State/Zipcode | Phone Number | | Organization | | | | + +---------+ + + | EXTERNAL LAB | | | | + +---------+ + + External Lab: Creatinine (10/31/2018) + + + + + + | Component | Value | Ref Range | Performed | Pathologist | | | | | At | Signature | + + + + + + | Creatinine, | 0.62 (A) | 0.7 - 1.11 | EXTERNAL | | | External | | | LAB | | + + + + + + + + | Specimen | + + | Blood | + + + +---------+ + + | Performing | Address | City/State/Zipcode | Phone Number | | Organization | | | | + +---------+ + + | EXTERNAL LAB | | | | + +---------+ + + documented in this encounter Visit Diagnoses Not on filedocumented in this encounter"
--- OUTSIDE RECORDS SUMMARY | ~2019-05-18 | XMS | Encounter Summary ---
Demographics + + + | Address | [address] | | | [place] [address] | + + + | Home Phone [...] + | Author | [facility] | | | and [place] | + + + | Organization | [facility] | | [...] | | | | | [place] [address] | | + + + + + | Hunter Jackson | ECON | [place] | | + + + + + | Wes Jackson | ECON | [place], [place] | | + + + + + | Oziel Jackson | ECON | [place], [place] | | + + + + + Care Team Providers + +------+ + | Care Director Audience Marketing Name | Role | Phone | + [...] | [address] | | | | | [address] | | | | | | [phone] | | | +--------+--------+ + + + [...] | | | | | | [place] [address] | | | | | | [phone] | | | | | | | | +--------+---------+ + + + documented as of this encounter Visit Diagnoses Not on filedocumented in this encounter"
--- OUTSIDE RECORDS SUMMARY | ~2019-05-18 | XMS | Encounter Summary ---
Demographics + + + | Address | [address] | | | [place] [address] | + + + | Home Phone [...] Author | [facility] | | | and [place] | + + + | Organization | [facility] [...] | | | | | [place] [address] | | + + + + + | Hunter Jackson | ECON | [place] | | + + + + + | Wes Jackson | ECON | [place], [place] | | + + + + + | Oziel Jackson | ECON | [place], [place] | | + + + + + Care Team Providers + +------+ + | Care Director Of Cardiopulmonary Services Name | Role | Phone | + [...] | 07/26/ | Refill | [facility] | Rodolfo Cruz, | Medication Refill | | 2016 | | MEDICINE [address] | [address] | | | | | [place] | [place] [address] | | | | | [place] [address] | [address] | | | | | [phone] | | | +--------+--------+ + + + [...] | | | | | | [place] [address] | | | | | | [phone] | | | | | | | | +--------+---------+ + + + documented as of this encounter Visit Diagnoses + + | Diagnosis | + + | Pain Generalized pain | + + documented in this encounter"
--- OUTSIDE RECORDS SUMMARY | ~2019-05-18 | XMS | Encounter Summary ---
Demographics + + + | Address | [address] | | | [place] [address] | + + + | Home Phone [...] | Author | [facility] | | | and [place] | + + + | Organization | [facility] | [...] | | | | | [place] [address] | | + + + + + | Hunter Jackson | ECON | [place] | | + + + + + | Wes Jackson | ECON | [place], [place] | | + + + + + | Oziel Jackson | ECON | [place], [place] | | + + + + + Care Team Providers + +------+ + | Care Live Source Operator Name | Role | Phone | + +------+ + | Rodolfo Cruz MD | PCP | | + +------+ + Reason for Visit + + + | Reason | Comments | + + + | Injections | follow up right hand pain- would like a repeat injection in her | | | right thumb | + + + Encounter Details +--------+---------+ + + + | Date | Type | Department | Care Team | Description | +--------+---------+ + + + | 02/04/ | Office | [facility] | Ulysses Jensen, | Rotator cuff | | 2012 | Visit | ORTHOPEDIC SURGERY | [address] | syndrome of right | | | | [address] [facility] | [place], [place] | shoulder (Primary | | | | [place], [place] | [address] | Dx); [facility] arthritis | | | | [address] | | | | | | [phone] | | | +--------+---------+ + + + [...] Weight | 94.3 kg (208 lb) | 02/04/2013 9:35 AM | | | | | PDT | | + + + + + | Height | 167.6 cm (5' 6") | 02/04/2013 9:35 AM | | | | | PDT | | + + + + + | Body Mass Index | 33.57 | 02/04/2013 9:35 AM | | | | | PDT | | + + + + + documented in this encounter Progress Notes Ulysses Jensen MD - 02/04/2013 2:57 PM PDTPt here for repeat right first 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 She also wants to talk about her right shoulder She has had symptoms for 3-4 months without injury Pain localized to the anterolateral shoulder aggravated with overhead use Prefers not to sleep on the right side On exam she has localized tenderness over the coracoacromial arch Good strength with resisted abduction in the scapular plane No ac tenderness Discussed likely etiology of pain and options - 10 min face time spent majority counseling regarding her shoulder and hand Under sterile conditions I injected her right shoulder SAS with kenalog 40mg and 3cc marcai ne I then injected the first CMC joint with celestone 3mg and 2cc marcaine under sterile condi tions She will let us know how she is doing over time Romelia Saunders - 02/04/2013 9:38 AM PDT-All required sup plied/equipment present -All required imaging studies completed -Consent signed and consistent with patient's verbal understand of procedure -Patient identified by Name and Date of -Site verified by member of health care team Timeout complete Romelia Eisenberg documented in thi s encounter Plan of [...] | | | | | | [place] [address] | | | | | | [phone] | | | | | | | [...] + | betamethasone (CELESTONE | Given | 02/05/20 | 3 mg | | Other | | SOLUSPAN) injection 3 mg 3 mg, | | 13 9:54 | | | (Comment | | Intramuscular, ONCE, [facility] 02/04/13 | | AM PDT | | | ) | | at 1015, For 1 dose, Shake well. | | | | | | | Not for IV use., | | | | | | + +--------+ +------+------+ + +---+---+ | | | +---+---+ + +-------+ +------+---+---+ | bupivacaine (MARCAINE) 0.5% | Given | 02/05/20 | 1 mL | | | | injection 1 mL 1 mL, | | 13 9:54 | | | | | Infiltration, ONCE, [facility] 02/04/13 | | AM PDT | | | | | at 1015, For 1 dose | | | | | | + +-------+ +------+---+---+ +---+---+ | | | +---+---+ + +-------+ +-------+---+---+ | bupivacaine (MARCAINE) 0.5% | Given | 02/05/20 | 4 mLs | | | | injection 4 mL 4 mL, | | 13 9:55 | | | | | Infiltration, ONCE, [facility] 02/04/13 | | AM PDT | | | | | at 1015, For 1 dose | | | | | | + +-------+ +-------+---+---+ +---+---+ | | | +---+---+ + +-------+ +-------+---+---+ | triamcinolone acetonide | Given | 02/05/20 | 40 mg | | | | (KENALOG-40) 40 mg/mL injection | | 13 9:55 | | | | | 40 mg 40 mg, Intra-articular, | | AM PDT | | | | | ONCE, [facility] 02/04/13 at 1015, For 1 | | | | | | | dose, Shake well. Not for IV | | | | | | | use., | | | | | | + +-------+ +-------+---+---+ +---+---+ | | | +---+---+ documented in this encounter
--- OUTSIDE RECORDS SUMMARY | ~2019-05-18 | XMS | Encounter Summary ---
Demographics + + + | Address | [address] | | | [place] [address] | + + + | Home Phone [...] + + | Author | [facility] | | | and [place] | + + + | Organization | [facility] | | [...] | | | | | [place] [address] | | + + + + + | Hunter Jackson | ECON | [place] | | + + + + + | Wes Jackson | ECON | [place], [place] | | + + + + + | Oziel Jackson | ECON | [place], [place] | | + + + + + Care Team Providers + +------+ + | Care Director Graphics Name | Role | Phone | + +------+ + | Rodolfo Cruz MD | PCP | | + +------+ + Reason for Visit + + + | Reason | Comments | + + + | Follow-up | right shoulder and right thumb injection | + + + Encounter Details +--------+---------+ + + + | Date | Type | Department | Care Team | Description | +--------+---------+ + + + | 11/17/ | Office | [facility] | Ulysses Jensen, | 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 | [address] | (Primary Dx); | | | | [address] | [place], [place] | Rotator cuff | | | | [place] | [address] | syndrome of right | | | | [address] | | shoulder | | | | [phone] | | | +--------+---------+ + + + [...] + + | Temperature | 37.1 C (98.8 F) | 11/17/2014 11:19 AM | | | | | [...] Weight | 85.3 kg (188 lb) | 11/17/2014 11:19 AM | | | | | PDT | | + + + + + | Height | 167.6 cm (5' 6") | 11/17/2014 11:19 AM | | | | | PDT | | + + + + + | Body Mass Index | 30.34 | 11/17/2014 11:19 AM | | | | | PDT | | + + + + + documented in this encounter Progress Notes Ulysses Jensen MD - 11/17/2014 1:19 PM PDTPatient returns for right first cmc injection and right shoulder injection Under sterile conditions I injected her first cmc joint with celestone 3mg and 1/2cc marcai ne I again discussed with her the surgical option if all conservative management fails Under sterile conditions I injected her right shoulder subacromial space with kenalog 40mg and 3cc marcaine She will return as needed P M PDTdocumented in this encounter Plan of Treatment +--------+---------+ + + + | Date | Type | Specialty | Care Team | Description | +--------+---------+ + + + | 06/02/ | Office | Orthopedic Surgery | Ulysses Jensen, | | | 2019 | Visit | | MD [address] | | | | | | [place] [address] | | | | | | [address] | | | | | | | | +--------+---------+ + + + | 11/21/ | Office | Cardiology | Yesi, | | | 2019 | Visit | | JOSE ALBERTO [address] | | | | | | [place], | | | | | | [place] [address] | | | | | | [phone] | | | | | | | [...]
--- OUTSIDE RECORDS SUMMARY | ~2019-05-18 | XMS | Encounter Summary ---
Demographics + + + | Address | [address] | | | [place] [address] | + + + | Home Phone [...] + | Author | [facility] | | | and [place] | + + + | Organization | [facility] | | [...] | | | | | [place] [address] | | + + + + + | Hunter Jackson | ECON | [place] | | + + + + + | Wes Jackson | ECON | [place], [place] | | + + + + + | Oziel Jackson | ECON | [place], [place] | | + + + + + Care Team Providers + +------+ + | Care Beck Tender Name | Role | Phone | [...] + + | 01/31/ | Office | [facility] | Rodolfo Cruz, | Insomnia (Primary | | 2015 | Visit | MEDICINE [address] | [address] | Dx); Neuropathy; | | | | [address] | [place], [place] | Fatigue; Tinea | | | | [place] [address] | [phone] | corporis; | | | | [phone] | | Generalized anxiety | | | [...] encounter Progress Notes Rodolfo Cruz MD - 01/31/2015 1:18 PM PDTFormatting of this note might be different f rom the original. Subjective: Patient ID: Soumya Jackson is a 79 y.o. female. HPI Back tingling with itching in the back started last Friday in [facility]. 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
--- OUTSIDE RECORDS SUMMARY | ~2019-05-18 | XMS | Encounter Summary ---
Demographics + + + | Address | [address] | | | [place] [address] | + + + | Home Phone [...] Author | [facility] [place] | | | and [place] | + + + | Organization | [facility] [place] | [...] | | | | | [place] [address] | | + + + + + | Hunter Jackson | ECON | [place] | | + + + + + | Wes Jackson | ECON | [place], [place] | | + + + + + | Oziel Jackson | ECON | [place], [place] | | + + + + + Care Team Providers + +------+ + | Care Jumpbasting Collar Baster Name | Role | Phone | + [...] | 07/25/ | Refill | [facility] | Rodolfo Cruz, | Medication Refill | | 2016 | | MEDICINE [address] | [address] | | | | | [place] | [place] [address] | | | | | [place] [address] | [address] | | | | | [phone] | | | +--------+--------+ + + + [...] | | | | | | [place] [address] | | | | | | [phone] | | | | | | | | +--------+---------+ + + + documented as of this encounter Visit Diagnoses Not on filedocumented in this encounter"
--- OUTSIDE RECORDS SUMMARY | ~2019-05-18 | XMS | Encounter Summary ---
Demographics + + + | Address | [address] | | | [place] [address] | + + + | Home Phone [...] Author | [facility] [place] | | | and [place] | + + + | Organization | [facility] [place] [...] | | | | | [place] [address] | | + + + + + | Hunter Jackson | ECON | [place] | | + + + + + | Wes Jackson | ECON | [place], [place] | | + + + + + | Oziel Jackson | ECON | [place], [place] | | + + + + + Care Team Providers + +------+ + | Care Operator Assistant I Cementing Name | Role | Phone | + [...] [place] | | | | | | [address] | [address] Phone: | | | | | | Phone: | [phone] | | | | | | [phone] | Fax: | | | | | | Fax: | [phone] | | | | | | [phone] | | +--------+ + + + + [...] | thoracic | [address] | [place] | | | | n | back pain | [address] [place] | [place], | | | | | [address] | [place] | [place] [address] | | | | | (ICD-9-CM) - | [address] | Phone: | | | | | Midline | Phone: | [phone] | | | | | thoracic | [phone] | Fax: | | | | | back pain | Fax: | [phone] | | | | | Procedures | [phone] | | | | | | pt [...] + + | 07/18/ | Office | [facility] | Rodolfo Cruz, | Midline thoracic | | 2015 | Visit | MEDICINE [address] | [address] | back pain (Primary | | | | [address] [place] | [place] | Dx); Depression with | | | | [place] [address] | [address] | anxiety | | | | [phone] | | | +--------+---------+ + + + [...] encounter Progress Notes Rodolfo Cruz MD - 07/18/2014 1:39 PM PDTFormatting of this note might be different f rom the original. Subjective: Patient ID: Soumya Jackson is a 78 y.o. female. HPI Multilevel Thoracic Spine DDD, DJD, She takes one hydrocodone per day for this. She would like to try physical therapy for this. She would like to see a spine blood tester fowl. She had a nervous breakdown in the [...] STREETER | | | | | | [id number] | | | | | | | | +--------+---------+ + + + | 11/21/ | Office | Cardiology | Yesi | | | 2019 | Visit | | JOSE ALBERTO Linder [address] | | | | | | [place] | | | | | | [place] [address] | | | | | | [phone] | | | | | | | [...]
--- OUTSIDE RECORDS SUMMARY | ~2019-05-18 | XMS | Encounter Summary ---
[...] Author | [facility] [place] | | | and [place] | + + + | Organization | [facility] [place] | | | and [...] | | | | | [place] [address] | | + + + + + | Hunter Jackson | ECON | [place] | | + + + + + | Wes Jackson | ECON | [place], [place] | | + + + + + | Oziel Jackson | ECON | [place], [place] | | + + + + + Care Team Providers + +------+ + | Care Trade Mark Examiner Name | Role | Phone | [...] + + | 12/14/ | Telephone | [facility] | Rodolfo Cruz, | Labs Only | | 2012 | | MEDICINE [place] | [address] | | | | | [address] | [place] [address] | | | | | [place] | [address] | | | | | [address] | | | | | | [phone] | | | +--------+ + + + [...] | | | | | | [place] [address] | | | | | | [phone] | | | | | | | | +--------+---------+ + + + documented as of this encounter Visit Diagnoses Not on filedocumented in this encounter"
--- OUTSIDE RECORDS SUMMARY | ~2019-05-18 | XMS | Encounter Summary ---
Demographics + + + | Address | [address] | | | [place] [address] | + + + | Home Phone [...] | Author | [facility] [place] | | | and [place] | + + + | Organization | [facility] [place] | [...] | | | | | [place] [address] | | + + + + + | Hunter Jackson | ECON | [place] | | + + + + + | Wes Jackson | ECON | [place], [place] | | + + + + + | Oziel Jackson | ECON | [place], [place] | | + + + + + Care Team Providers + +------+ + | Care Catering Chef Name | Role | Phone | + +------+ + PCP | Unavailable | + +------+ + Encounter Details +--------+ + + + + | Date | Type | Department | Care Team | Description | +--------+ + + + + | 08/07/ | Hospital | [facility] | | | | 2011 | Encounter | MED CTR CARDIAC | | | | | | SERVICES [address] | | | | | | [place], | | | | | | [place] [address] | | | +--------+ + + + [...] documented as of this encounter Progress Notes Wes Capone MD - 08/07/2010 1:32 PM PDTDATE: 08/12/2010 BRAINSTEM AUDITORY EVOKED POTENTIALS REFERRING AND READING PHYSICIAN: Wes Capone MD ANNEALING FURNACE OPERATOR: Kim Spicer CLINICAL HISTORY: Abnormal brain scan. FINDINGS: With rarefaction click auditory stimulation in 1 ear and white noise in the oth er (and then the reverse), latencies to waves I through V are normal bilaterally. Amplitude for I /IA is genet rderline small on the left, but normal on the right. Amplitude for V/VA are normal bilaterally. Amplitude ratios are normal bilaterally. Interwave latencies for I-III, I-V, and III-V are normal bilaterally. INTERPRETATION: ABNORMAL BRAINSTEM AUDITORY EVOKED POTENTIALS DUE TO POSSIBLE PERIPHERAL PATHOLOGY FOR THE AUDITORY NERVE ON THE LEFT, BUT WITH NO EVIDENCE OF DEMYELINATING DISEASE . DICTATED BY: Wes Capone MD Neurologist/Slip Sheeter JOB #: [id number] EXT JOB #:[id number] cc: Rodolfo Cruz MD <Electronically Signed by Wes Capone MD> 08/15/10 2209 María Chua MD - 08/07/2010 1:32 PM PDTDATE: 08/12/2010 VISUAL EVOKED POTENTIALS REFERRING AND READING PHYSICIAN: Wes Capone MD ANNEALING FURNACE OPERATOR: Kim Spicer LOCATION: Outpatient. DIAGNOSIS: Abnormal brain scan. FINDINGS: 1. With pattern reversal checkerboard visual stimulation using check size 32 ( central vis ion), latencies for P100 and amplitudes for N75/P100 complexes are normal bilaterally. 2. With pattern reversal checkerboard visual stimulation using check size 32 ( peripheral vision), latencies for P100 and amplitudes for N75/P 100 complexes are normal bilaterally. INTERPRETATION: NORMAL VISUAL EVOKED POTENTIALS BILATERALLY WITH NO EVIDENCE OF DEMYELINA TING DISEASE. DICTATED BY: Wes Capone MD Neurologist/Slip Sheeter JOB #: [id number] EXT JOB #:[id number] cc: Rodolfo Cruz MD <Electronically Signed by Wes Capone MD> 08/15/102203 documented in this encounter Plan of Treatment [...] | | | | | | [place] [address] | | | | | | [phone] | | | | | | | | +--------+---------+ + + + documented as of this encounter Visit Diagnoses Not on filedocumented in this encounter"
--- OUTSIDE RECORDS SUMMARY | ~2019-05-18 | XMS | Encounter Summary ---
Demographics + + + | Address | [address] | | | [place] [address] | + + + | Home Phone [...] | [facility] [place] | | | and [place] | + + + | Organization | [facility] [place] [...] [place] | | | | | [place] [address] | | + + + + + | Hunter Jackson | ECON | [place] | | + + + + + | Wes Jackson | ECON | [place], [place] | | + + + + + | Oziel Jackson | ECON | [place], [place] | | + + + + + Care Team Providers + +------+ + | Care Desktop Support Engineer Name | Role | Phone | [...] + + | 01/29/ | Office | [facility] | Ulysses Jensen, | Complete tear of | | 2017 | Visit | ORTHOPEDIC SURGERY | [address] | right rotator cuff | | | | [address] | [place] [address] | (Primary Dx); | | | | [place] | [address] | Localized primary | | | | [address] | | osteoarthritis of | | | | [phone] | | carpometacarpal | | | | [...] [place] | | | | | | [address] | | | | | | | | +--------+---------+ + + + | 11/21/ | Office | Cardiology | Yesi, | | | 2019 | Visit | | JOSE ALBERTO Linder [address] | | | | | | [place], | | | | | | [place] [address] | | | | | | [phone] | | | | | | | [...]
--- OUTSIDE RECORDS SUMMARY | ~2019-05-18 | XMS | Encounter Summary ---
Demographics + + + | Address | [address] | | | [place] [address] | + + + | Home Phone [...] + | Author | [facility] [place] | | | and [place] | + + + | Organization | [facility] [place] | | [...] | | | | | [place] [address] | | + + + + + | Hunter Jackson | ECON | [place] | | + + + + + | Wes Jackson | ECON | [place], [place] | | + + + + + | Oziel Jackson | ECON | [place], [place] | | + + + + + Care Team Providers + +------+ + | Care Process Tank Tender Name | Role | Phone | + +------+ + | Rodolfo Cruz MD | PCP | | + +------+ + Reason for Visit + + + | Reason | Comments | + + + | New Patient | varicose veins | + + + Evaluate & Treat (Routine) +--------+ + + + + + | Status | Reason | Specialty | Diagnoses / | Referred By | Referred To | | | | | Procedures | Contact | Contact | +--------+ + + + + + | Closed | Specialty | Vascular | Diagnoses | Morasch, | Field, | | | Services | Surgery / | Varicose | Rodolfo Reilly MD | Ethan Hu, | | | Required | General | veins | [address] | [address] | | | | Surgery | | [address] | [address] | | | | | | [place], [place] | [place], | | | | | | [address] | [place] [address] | | | | | | Phone: | Phone: | | | | | | [phone] | [phone] | | | | | | Fax: | Fax: | | | | | | [phone] | [phone] | +--------+ + + + + + Encounter Details +--------+---------+ + + + | Date | Type | Department | Care Team | Description | +--------+---------+ + + + | 07/26/ | Office | [facility] | Ethan Ny | Varicose veins | | 2015 | Visit | SURGERY [address] | MD Mayte, FACS [address] | (Primary Dx) | | | | [place], [place] | [address] [facility] | | | | | [address] | [place] [address] | | | | | [phone] | [phone] | | | | | | | [...] + + + | Blood Pressure | 118/56 | 07/27/2015 11:21 AM | | | | | PDT | | + + + + + | Pulse | 57 | 07/27/2015 11:21 AM | | | | | PDT | | + + + + + | Temperature | 36.6 C (97.8 F) | 07/27/2015 11:21 AM | | | | | PDT | | + + + + + | Respiratory Rate | 16 | 07/27/2015 11:21 AM | | | | | PDT | | + + + + + | Oxygen Saturation | 96% | 07/27/2015 11:21 AM | | | | | PDT | | + + + + + | Inhaled Oxygen | - | - | | | Concentration | | | | + + + + + | Weight | 86 kg (189 lb 9.6 | 07/27/2015 11:21 AM | | | | oz) | PDT | | + + + + + | Height | 162.6 cm (5' 4") | 07/27/2015 11:21 AM | | | | | PDT | | + + + + + | Body Mass Index | 32.54 | 07/27/2015 11:21 AM | | | | | PDT | | + + + + + documented in this encounter Progress Notes Ximena Holm RN - 07/28/2015 3:04 PM PDT Ethan Dimas M D - 07/27/2015 11:16 AM PDT Patient Identification: Soumya Jackson 1935 Is a 79 y.o. female, a patient of Rodolfo Cruz MD. Here with Sumaya. Chief Complaint: Chief Complaint Patient presents with New Patient varicose veins HISTORY of PRESENT ILLNESS Patients Preliminary Questionaire: How do your varicose veins bother you? Eg- pain, heaviness, unsightly, bleeding, clots. Needle type pain. Which leg is the worst? Left. When did you start getting varicose veins ? After 1st child 1960 Have you tried wearing compression or support stockings? Only when Have you had previous treatment for varicosities? Eg injection sclerotherapy, laser or r adiofrequency ablation or surgery ? No Physician notes: Has veins around ankle. Last Friday had severe pain in left 4th toe. Lasted about 5 mi nutes then resolved. Gets scattered stabbing pain at veins in calf and ankle. Also back of heel. No bleeding. No blood clots. Hasn't recently worn compression stockings. No pain in feet or toes at night. Had a stroke and affected LEFT arm and leg. 2009. Now walking okay. Does own food shopping and aquatics. 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 Mild leg swelling helped with lasix. Sister with varicose vein and had surgery. AIDEN Score: 2 DATA/RECENT IMAGING None Rodolfo Cruz MD's notes were reviewed in clinic today. PAST MEDICAL HISTORY She has a past medical history of Hypertension; High cholesterol; Hepatitis A (1967); Osteo porosis; MGUS (monoclonal gammopathy of unknown significance); COPD (chronic obstructive pul monary disease) ([facility]); Mononucleosis; Miscarriage; Asthma (); Fracture of foot (approx 2008); Hyperplastic colon polyp (03/28/10); GERD (04/17/2010); TIA (05/08/2010); PUD (peptic ulcer disease) (11/08/2013); Anemia (11/24/2013); Hypothyroidism; Valvular heart disease (05/23); Herpes zoster (05/03/2011); DJD (degenerative joint disease) (07/08/2013); Pulmonary nodules (12/08/2013); Spondylosis, cervical (08/30/2010); UGIB (upper gastrointestinal bleed) (11/14/2013); Vertigo (09/03/2012); Anxiety (May 2014); Arthritis; Encounter for blood transfus ion (November 2013); Stroke ([facility]) (Apr 2010); Hep B complicating ; Chronic low back dorota n (08/24/2014); DDD (degenerative disc disease), lumbar (08/24/2014); Facet arthritis of lumba r region (08/24/2014); Essential hypertension; Clotting disorder ([facility]) (2013); Environmental allergies; Heart murmur; and Tinea corporis (01/31/2015). Past Surgical History She Past Surgical History Procedure Laterality Date Colonoscopy 05/2002; 03/28/10 next due 03/2020 Removal lower left nodules 2004 Foot fracture surgery 2004 left foot Tonsillectomy and adenoidectomy 1955 Upper gastrointestinal endoscopy 11/15/2013 EGD * IP RM: 428 * ; Laterality: N/A; Surgeon: Lauri Garrison MD; [facility] Upper gastrointestinal endoscopy 11/04/2013 EGD IP 449; Laterality: N/A; Surgeon: Samm Pandya MD; Location: [facility] Hemorrhoid surgery 0321-4903 Thyroidectomy Allergies Allergen Reactions Diclofenac Sodium Duodenal Ulcer October 2013 Alendronate Sodium Patient not remember Celecoxib Patient not remember Penicillins Caused "black diarrhea" when she had her 4th child. Risedronate Sodium Patient not remember Medications: Outpatient Encounter Prescriptions as of 07/27/2015 Medication Sig Dispense Refill albuterol 90 mcg/puff inhaler 2 puff po q 4 hours prn 1 Inhaler 0 amLODIPine (NORVASC) 5 mg tablet Take 2 tablets by mouth Daily. 60 tablet 5 BIOTIN PO Take 500 [...] g 0 escitalopram (LEXAPRO) 10 mg tablet TAKE ONE TABLET BY MOUTH EVERY DAY 90 tablet 1 eszopiclone (LUNESTA) 2 MG [...] Take 1,000 mcg by mouth Daily. No facility-administered encounter medications on file as of 07/27/2015. Family History: Her family history includes Arthritis (age of onset: 59) in her father; Breast cancer (age of onset: 75) in her mother; Cancer in her sister and son; Cancer (age of onset: 20) in her son; Cancer (age of onset: 59) in her sister; Colon cancer in her sister; Depression in her mother; Gout in her mother; Heart disease in her maternal uncle and maternal uncle; High blo od pressure in her mother, sister, and sister; Migraines in her sister; Prostate cancer in h er father; Sleep Apnea in her sister; Stroke in her father, maternal grandmother, and patern al grandmother; Thyroid disease in her sister. Social History: She reports that she quit smoking about 39 years ago. Her smoking use included Cigarettes. She started smoking about 60 years ago. She has a 63 pack-year smoking history. She has neve r used smokeless tobacco. She reports that she does not drink alcohol or use illicit drugs. REVIEW OF SYSTEMS General: []Weight loss/gain (over 10 lbs) []Fever/chills []Night sweats Hematologic: []Bleeding/brusing tendencies []Blood transfusion []Anemia Heent: []Vision loss []Hearing loss []Sinus problems/nose bleeds []Hoarseness Respiratory: []Wheezing []Shortness of breath []Cough []Spitting up blood []On oxygen []Use CPAP machine Cardiac: []Chest pain []Palpitations/heart racing []Swelling of ankles/hands []Unusual shortness of breath []Difficulty sleeping flat Gastrointestinal: []Nausea/vomiting []Difficulty swallowing []Heartburn []Loss of appetite []Abdominal pain []Stomach Ulcers []Diarrhea []Constipation []Evans k or bloody stools Vascular: []Galaviz/TIAs []Fainting []Difficulty with speech []Leg cramps [x]Pain in feet/legs at rest []Foot ulcers/s ores [x]Varicose veins []Phlebitis/blood clots Musculoskeletal: []Joint stiffness/swelling []Join pain [x]Back pain [x]Arthritis []Gout Urologic: []Blood in urine []Frequent urination at night []Burning/painful urination []Kidney stones []Difficulty urination []Sexual difficulties Neuro/Psychiatric: []Headaches []Seizures []Depression []Anxiety attacks []Memory loss or confusion PHYSICAL EXAM BP 118/56 mmHg | Pulse 57 | Temp(Src) 36.6 C (97.8 F) (Temporal) | Resp 16 | Ht 1.626 m (5' 4") | Wt 86.002 kg (189 lb 9.6 oz) | BMI 32.53 kg/m2 | SpO2 96% General Appearance: Alert, cooperative, no distress, appears stated age Head: Normocephalic, without obvious abnormality, atraumatic Eyes: PERRL, conjunctiva/corneas clear, EOM's intact-wears glasses Ears: Hearing adequate Nose: Nares normal Throat: Lips, mucosa, and tongue normal; teeth and gums normal Neck: Supple, symmetrical, no adenopathy, no neck bruits Lungs: Breath sounds are equal bilaterally, no wheezes or crackles Chest Wall/Back: No tenderness or deformity. No CVA tenderness Heart: Regular rate and rhythm, no murmur. Abdomen: Soft, non-tender, no pulsatile nor other masses, scars Extremities: Varicosities: LEFT leg left calf with 8-10 mm soft veins. Extensive spider veins at ankle. RIGHT leg: Right thigh few spider veins anterior thigh, no bulging veins. Skin: Hemosiderin none Ulceration none Edema: none Palpable Pulses*: Femoral Popliteal Dorsalis pedis Post tibial LEFT 2+ 2+ RIGHT 2+ 2+ Ultrasound: See report. Neurologic: Cranial nerves II-XII grossly intact, Gait normal ULTRASOUND REPORT: PATIENT NAME : Soumya Jackson EQUIPMENT: SonUnbounce-AdFinanceo with 10-5 mHertz probe. INDICATIONS: LEFT calf bulging varicosities. FINDING: Left Leg-GSV measures 7.7mm with reflux-2.05 seconds. Left calf varicosities measu re 6.5mm. Reflux at SF junction. LSV measures 2.6mm with no reflux. Right Leg-LSV measures up to 4.7mm with no reflux. GSV measures 4.2mm with no reflux. IMPRESSION: LEFT GSV reflux with secondary varicose veins. Assessment Soumya was seen today for new patient. 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 Patient not interested in surgery. May try compression stockings. Patient not inclined to try that. If the main issue is treatment of post-stroke neuropathic pain, then may have trial of Nortryptilin. Return to clinic as needed. Ethan Ny MD, FACS Vascular and General Surgery CC: Rodolfo Cruz MD documented in this encounter Plan of [...] | | | | | | [place] [address] | | | | | | [phone] | | | | | | | | +--------+---------+ + + + documented as of this encounter Visit Diagnoses + + | Diagnosis | + + | Varicose veins - Primary Asymptomatic varicose veins | + + documented in this encounter
--- OUTSIDE RECORDS SUMMARY | ~2019-05-18 | XMS | Encounter Summary ---
Demographics + + + | Address | [address] | | | [place] [address] | + + + | Home Phone [...] | Author | [facility] [place] | | | and [place] | + + + | Organization | [facility] [place] [...] | | | | | [place] [address] | | + + + + + | Hunter Jackson | ECON | [place] | | + + + + + | Wes Jackson | ECON | [place], [place] | | + + + + + | Oziel Jackson | ECON | [place], [place] | | + + + + + Care Team Providers + +------+ + | Care Automotive Electrical Helper Name | Role | Phone | + +------+ + | Rodolfo Cruz MD | PCP | | + +------+ + Encounter Details +--------+ + + + + | Date | Type | Department | Care Team | Description | +--------+ + + + + | 07/07/ | Hospital | [facility] | Rodolfo Cruz, | Pain | | 2014 | Encounter | MED CTR [address] [facility] | MD [address] | | | | | [address] [place] | [address] | | | | | [place] | [address] | | | | | [address] | | | | | | [phone] | | | +--------+ + + + [...] [place] | | | | | | [address] | | | | | | | | +--------+---------+ + + + | 11/21/ | Office | Cardiology | Yesi, | | | 2019 | Visit | | JOSE ALBERTO Linder [address] | | | | | | [place], | | | | | | [place] [address] | | | | | | [phone] | | | | | | | [...] + | [facility] | [address] | [place], [place] | [phone] | | [facility] | | [address] | | | - IMAGING | | [...] upper thoracic spine, similar to | [facility] | | the CT from 02/22/2014. [...] + | [facility] | [address] | [place] | [phone] | | [facility] | | [address] | | | - IMAGING | | | | + + + + + documented in this encounter Visit Diagnoses + + | Diagnosis | + + | Pain Generalized pain | + + documented in this encounter"
--- OUTSIDE RECORDS SUMMARY | ~2019-05-18 | XMS | Encounter Summary ---
Demographics + + + | Address | [address] | | | [place] [address] | + + + | Home Phone [...] | Author | [facility] [place] | | | and [place] | + + + | Organization | [facility] [place] [...] | | | | | [place] [address] | | + + + + + | Hunter Jackson | ECON | [place] | | + + + + + | Wes Jackson | ECON | [place], [place] | | + + + + + | Oziel Jackson | ECON | [place], [place] | | + + + + + Care Team Providers + +------+ + | Care Parks Recreation Coordinator Name | Role | Phone | [...] Description | +--------+--------+ + + + | 01/23/ | Refill | [facility] | Rodolfo Cruz, | Medication Refill | | 2015 | | MEDICINE [address] | [address] | | | | | [place] | [address] | | | | | [place] [address] | [address] | | | | | [phone] | | | +--------+--------+ + + + [...] | | | | | | [place] [address] | | | | | | [phone] | | | | | | | | +--------+---------+ + + + documented as of this encounter Visit Diagnoses Not on filedocumented in this encounter"
--- OUTSIDE RECORDS SUMMARY | ~2019-05-18 | XMS | Encounter Summary ---
Demographics + + + | Address | [address] | | | [place] [address] | + + + | Home Phone [...] | Author | [facility] | | | and [place] | + + + | Organization | [facility] | [...] | | | | | [place] [address] | | + + + + + | Hunter Jackson | ECON | [place] | | + + + + + | Wes Jackson | ECON | [place], [place] | | + + + + + | Oziel Jackson | ECON | [place], [place] | | + + + + + Care Team Providers + +------+ + | Care Counterperson Name | Role | Phone | + +------+ + | Rodolfo Cruz MD | PCP | | + +------+ + Reason for Visit + + + | Reason | Comments | + + + | Medication Prior | Metaxalone | | Authorization | | + + + Encounter Details +--------+ + + + + | Date | Type | Department | Care Team | Description | +--------+ + + + + | 10/06/ | Telephone | [facility] | Rodolfo Cruz, | Medication Prior | | 2013 | | MEDICINE [facility] | MD Raya Z[address] | Authorization | | | | [address] | [place] [address] | (Metaxalone) | | | | [place] [address] | [address] | | | | | [phone] | | | +--------+ + + + [...] STREETER | | | | | | [id number] | | | | | | | | +--------+---------+ + + + | 11/21/ | Office | Cardiology | Yesi, | | | 2019 | Visit | | JOSE ALBERTO Linder [address] | | | | | | [place] | | | | | | [place] [address] | | | | | | [phone] | | | | | | | | +--------+---------+ + + + documented as of this encounter Visit Diagnoses Not on filedocumented in this encounter"
--- OUTSIDE RECORDS SUMMARY | ~2019-05-18 | XMS | Encounter Summary ---
Demographics + + + | Address | [address] | | | [place] [address] | + + + | Home Phone [...] | [facility] | | | and [place] | + + + | Organization | [facility] [...] | | | | | [place] [address] | | + + + + + | Hunter Jackson | ECON | [place] | | + + + + + | Wes Jackson | ECON | [place], [place] | | + + + + + | Oziel Jackson | ECON | [place], [place] | | + + + + + Care Team Providers + +------+ + | Care Supervisor Varnish Name | Role | Phone | + +------+ + | Rodolfo Cruz MD | PCP | | + +------+ + Reason for Visit + + + | Reason | Comments | + + + | Follow-up | States her symptoms have been much better | + + + | Numbness | to hand and face at times | + + + Encounter Details +--------+---------+ + + + | Date | Type | Department | Care Team | Description | +--------+---------+ + + + | 05/19/ | Office | [facility] | Rodolfo Cruz, | Asthma (Primary Dx); | | 2015 | Visit | MEDICINE [address] [place] [address] | MD [address] | Anemia; Essential | | | | [address] [place] | [facility], [place] | hypertension; | | | | [place] [address] | [address] | Hyperlipidemia; | | | | [phone] | | Bilateral thoracic | | | | | | back pain; Insomnia | +--------+---------+ + + + Social History [...] + + + | Blood Pressure | 144/76 | 05/19/2014 1:57 PM | | | | | PST | | + + + + + | Pulse | 62 | 05/19/2014 1:57 PM | | | | | PST | | + + + + + | Temperature | 36.9 C (98.5 F) | 05/19/2014 1:57 PM | | | | | PST | | + + + + + | Respiratory Rate | 16 | 05/19/2014 1:57 PM | | | | | PST | | + + + + + | Oxygen Saturation | 98% | 05/19/2014 1:57 PM | | | | | PST | | + + + + + | Inhaled Oxygen | - | - | | | Concentration | | | | + + + + + | Weight | 86.8 kg (191 lb 4.8 | 05/19/2014 1:57 PM | | | | oz) | PST | | + + + + + | Height | 167.6 cm (5' 6") | 05/19/2014 1:57 PM | | | | | PST | | + + + + + | Body Mass Index | 30.88 | 05/19/2014 1:57 PM | | | | | PST | | + + + + + documented in this encounter Progress Notes Rodolfo Cruz MD - 05/19/2014 2:23 PM PSTFormatting of this note might be different f rom the original. Subjective: Patient ID: Soumya Jackson is a 78 y.o. female. HPI Epistaxis, none since our last visit, seen at ER in [place]. No recurrence using an oint ment and decongestant. Insomnia, improved with 2mg lunesta. She has lost 9 pounds over the last 2 years. Thoracic pain. Her radiating back pain which started in September is now resolved. She still ge ts an occasional once a day twinge in the central upper pain, Sporadic with sleeping, She i s not sure what brings it on. She takes one hydrocodone per day at night for this. This im pacts her sleep. She is tired when she goes to bed. She is going to PT for this. Pulmonary Nodules, Followed by CT, There is no Chronic cough, Mild SOB with run on sente nces. This is unchanged Hx GI bleed. Some weakness, No recent bloody or black stools. She is now on iron. She was subsequently hosp and transfused. She is no longer having any bloody or black stools. She is not longer taking her voltaren. Anemia, Recent CBC interpath 02/22, She is on iron. There is no gross blood in the stool or urine. Possible osseous lytic lesions. 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 Asthma albuterol 90 mcg/puff inhaler 2. Anemia 3. Essential hypertension 4. Hyperlipidemia 5. Bilateral thoracic back pain Plan: Anemia is improved. She looks and feels fine. Otherwise continue current medical regimen. RTC 3 months. Lunesta 2mg qhs prn. documented in this encounter Plan of Treatment +--------+---------+ + + + | Date | Type | Specialty | Care Team | Description | +--------+---------+ + + + | 06/02/ | Office | Orthopedic Surgery | Uylsses Jensen, | | 2019 | Visit | [...] | | | | | | [place] [address] | | | | | | [phone] | | | | | | | | +--------+---------+ + + + documented as of this encounter Visit Diagnoses + + | Diagnosis | + + | Asthma - Primary Unspecified asthma | + + | Anemia Anemia, unspecified | + + | Essential hypertension Unspecified essential hypertension | + + | Hyperlipidemia Other and unspecified hyperlipidemia | + + | Bilateral thoracic back pain | + + | Insomnia Insomnia, unspecified | + + documented in this encounter
--- OUTSIDE RECORDS SUMMARY | ~2019-05-18 | XMS | Encounter Summary ---
Demographics + + + | Address | [address] | | | [place] [address] | + + + | Home Phone [...] | [facility] | | | and [place] | + + + | Organization | [facility] | | [...] | | | | | [place] [address] | | + + + + + | Hunter Jackson | ECON | [place] | | + + + + + | Wes Jackson | ECON | [place], [place] | | + + + + + | Oziel Jackson | ECON | [place], [place] | | + + + + + Care Team Providers + +------+ + | Care Purification Director Name | Role | Phone | [...] | 05/15/ | Refill | [facility] | Rodolfo Cruz, | Medication Refill | | 2016 | | MEDICINE [address] | MD [address] | | | | | [place] | [place] [address] | | | | | [place] [address] | [address] | | | | | [phone] | | | +--------+--------+ + + + [...] | | | | | | [place] [address] | | | | | | [phone] | | | | | | | | +--------+---------+ + + + documented as of this encounter Visit Diagnoses + + | Diagnosis | + + | Insomnia, unspecified insomnia - Primary | + + documented in this encounter"
--- OUTSIDE RECORDS SUMMARY | ~2019-05-18 | XMS | Encounter Summary ---
Demographics + + + | Address | [address] | | | [place] [address] | + + + | Home Phone [...] | Author | [facility] | | | and [place] | + + + | Organization | [facility] | | | [...] | | | | | [place] [address] | | + + + + + | Hunter Jackson | ECON | [place] | | + + + + + | Wes Jackson | ECON | [place], [place] | | + + + + + | Oziel Jackson | ECON | [place], [place] | | + + + + + Care Team Providers + +------+ + | Care Material Damage Adjuster Name | Role | Phone | [...] | | | | emia | [place] | [address] | | | | | | [place] | [facility] | | | | | | [address] | [place] | | | | | | Phone: | [address] Phone: | | | | | | [phone] | [phone] | | | | | | Fax: | Fax: | | | | | | [phone] | [phone] | +--------+ + + + + + Reason for Visit + + + | Reason | Comments | + + + | Epistaxis | Dr. Davis cauterized nose. Slight nose bleed 2 nights ago to | | | opposite side | + + + | Medication | On Lexapro trial, had to take 1/2 pill because causing her to be | | Management | "loopy" | + + + Encounter Details +--------+---------+ + + + | Date | Type | Department | Care Team | Description | +--------+---------+ + + + | 07/07/ | Office | [facility] | Rodolfo Cruz, | Hyperproteinemia | | 2015 | Visit | MEDICINE [address] [place] [address] | MD [address] | (Primary Dx); Pain; | | | | [address] [place] | [place], [place] | Hypothyroidism | | | | [place] [address] | [address] | | | | | [phone] | | | +--------+---------+ + + + [...] + + + | Blood Pressure | 148/74 | 07/07/2014 10:53 AM | | | | | PST | | + + + + + | Pulse | 56 | 07/07/2014 10:53 AM | | | | | PST | | + + + + + | Temperature | 36.7 C (98.1 F) | 07/07/2014 10:53 AM | | | | | PST | | + + + + + | Respiratory Rate | 14 | 07/07/2014 10:53 AM | | | | | PST | | + + + + + | Oxygen Saturation | 97% | 07/07/2014 10:53 AM | | | | | PST | | + + + + + | Inhaled Oxygen | - | - | | | Concentration | | | | + + + + + | Weight | 84.6 kg (186 lb 9.6 | 07/07/2014 10:53 AM | | | | oz) | PST | | + + + + + | Height | 167.6 cm (5' 6") | 07/07/2014 10:53 AM | | | | | PST | | + + + + + | Body Mass Index | 30.12 | 07/07/2014 10:53 AM | | | | | PST | | + + + + + documented in this encounter Progress Notes Rodolfo Cruz MD - 07/07/2014 11:22 AM PSTFormatting of this note might be different f rom the original. Subjective: Patient ID: Soumya Jackson is a 78 y.o. female. HPI Neck and back pain with fatigue. She did recent see ENT. This has improved. Epistaxis, recently cauterized and feeling better. Hypothyroidism, She is on her thyroid medication. She is compliant. Anxiety, "I'm feeling jittery", flat affect. Lack of interest in usual activities. She gutierrez s felt like her heart has been up in her chest. She is sleeping poorly and is taking lunest a for her Insomnia, improved with 2mg lunesta. There is some fatigue with this. She takes a nap once daily. She feels depressed. Crying spells come on easy. She tried the lexapro and she felt limp. She is only taking 1/2 today. 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 Hyperproteinemia * [facility] - AMB Referral 2. Pain XR Thoracic Spine 2 Vw XR CERVICAL SPINE 2 OR 3 VIEWS 3. Hypothyroidism TSH levothyroxine (SYNTHROID, LEVOTHROID) 112 mcg tablet Plan: Decrease thyroid med, xrayc and t spine. RTC 6 weeks. Otherwise continue current medical regimen. She declines further medication for depression today. documented in this encounter Plan of Treatment [...] [address] | | | | | | [address] [place], | | | | | | [place] [address] | | | | | | [phone] | | | | | | | | +--------+---------+ + + + + + +--------+ + + | Name | Type | Priori | Associated Diagnoses | Order Schedule | | | | ty | | | + + +--------+ + + | * [facility] | Outpatient | Routin | Hyperproteinemia | Ordered: 07/07/2014 | | ONCOLOGY CLINIC - | Referral | e | | | | AMB Referral | | | | | + + +--------+ + + documented as of this encounter Results TSH (08/03/2014 12:19 PM [...] + | [facility] | [address] | [place] | [phone] | | [facility] | | [address] | | | - LABORATORY | | | | + + + + + XR CERVICAL SPINE 2 OR 3 VIEWS [...] + + | Performing | Address | City/[facility] | Phone Number | | Organization | | | | + + + + + | [facility] | [address] | [place], [place] | [phone] | | [facility] | | [address] | | | - IMAGING | | [...] to upper thoracic spine, similar to | [facility] | | the CT from 02/22/2014. [...] | [place], Rad Results In - 07/07/2014 2:27 PM PST [...] ST[address] | [address] | [place], [place] | [phone] | | [facility] | | [address] | | | - IMAGING | | | | + + + + + documented in this encounter Visit Diagnoses + + | Diagnosis | + + | Hyperproteinemia - Primary Other disorders of plasma protein metabolism | + + | Pain Generalized pain | + + | Hypothyroidism Unspecified hypothyroidism | + + documented in this encounter
--- OUTSIDE RECORDS SUMMARY | ~2019-05-18 | XMS | Encounter Summary ---
Demographics + + + | Address | [address] | | | [place] [address] | + + + | Home Phone [...] Author | [facility] | | | and [place] | + + + | Organization | [facility] | [...] [place] | | | | | [place] [address] | | + + + + + | Hunter Jackson | ECON | [place] | | + + + + + | Wes Jackson | ECON | [place], [place] | | + + + + + | Oziel Jackson | ECON | [place], [place] | | + + + + + Care Team Providers + +------+ + | Care Retail Service Representative Name | Role | Phone [...] + + | 10/16/ | Hospital | [facility] | Yesi, | | | 2018 | Encounter | MED CTR NUCLEAR | JOSE ALBERTO Linder [address] | | | | | MEDICINE [address] | [place], | | | | | [place], | [place] [address] | | | | | [place] [address] | [phone] | | | | | [phone] | | | | | | | [place] | | +--------+ + + + + [...] STREET[place] | | | | | | [address] | | | | | | | | +--------+---------+ + + + | 11/21/ | Office | Cardiology | Yesi, | | | 2019 | Visit | | JOSE ALBERTO Linder [address] | | | | | | [place], | | | | | | [place] [address] | | | | | | [phone] | | | | | | | [...] PDT | | | | | Starting [facility] 10/16/17 at 1416, For | [...] | | | | | | Starting [facility] 10/16/17 at 1416, For | | | | | | | 1 dose, Nuclear Medicine | | | | | | + +-------+ + +---+---+ +---+---+ | | | +---+---+ documented in this encounter"
--- OUTSIDE RECORDS SUMMARY | ~2019-05-18 | XMS | Encounter Summary ---
Demographics + + + | Address | [address] | | | [place] [address] | + + + | Home Phone [...] + | Author | [facility] | | | and [place] | + + + | Organization | [facility] | | | [...] | | | | | [place] [address] | | + + + + + | Hunter Jackson | ECON | [place] | | + + + + + | Wes Jackson | ECON | [place], [place] | | + + + + + | Oziel Jackson | ECON | [place], [place] | | + + + + + Care Team Providers + +------+ + | Care Engineering Design Supervisor Name | Role | Phone | [...] | disc disease), | | | | [place], | [facility], | lumbar (Primary Dx) | | | | [place] [address] | [place] [address] | | | | | [phone] | [phone] | | | | | | | [...] | | | | | | [place] [address] | | | | | | [phone] | | | | | | | | +--------+---------+ + + + documented as of this encounter Visit Diagnoses + + | Diagnosis | + + | DDD (degenerative disc disease), lumbar - Primary Degeneration of lumbar or | | lumbosacral intervertebral disc | + + documented in this encounter"
--- OUTSIDE RECORDS SUMMARY | ~2019-05-18 | XMS | Encounter Summary ---
Demographics + + + | Address | [address] | | | [place] [address] | + + + | Home Phone [...] | Author | [facility] | | | and [place] | + + + | Organization | [facility] | [...] [place] | | | | | [place] [address] | | + + + + + | Hunter Jackson | ECON | [place] | | + + + + + | Wes Jackson | ECON | [place], [place] | | + + + + + | Oziel Jackson | ECON | [place], [place] | | + + + + + Care Team Providers + +------+ + | Care Medical Office Coordinator Name | Role | Phone | [...] + + | 02/03/ | Office | [facility] | Yesi, | Hyperlipidemia, | | 2017 | Visit | CARDIOLOGY [address] | JOSE ALBERTO Linder [address] | mixed (Primary Dx); | | | | [place], | [place], | Valvular heart | | | | [place] [address] | [place] [address] | disease; Murmur; | | | | [phone] | [phone] | Essential | | | | | [...] | | | | | | involving [place] | | | | | | coronary artery of | | | | | | [place] heart with | | | | | [...] cervical Cervical radiculopathy Coronary artery disease involving [place] coronary artery of [place] heart with unstable angina pectoris Stress hyperglycemia [...] Interval:140 ms P Duration:140 ms P Horizontal [place]:-43 deg P Front [place]:60 deg Q Onset:514 ms QRSD Interval:78 ms QT Interval:384 ms QTcB:426 ms QTcF:412 ms QRS Horizontal [place]:3 deg QRS [place]:21 deg I-40 Horizontal [place]:-8 deg I-40 Front [place]:15 deg T-40 Horizontal [place]:-6 deg T-40 Front [place]:22 deg T Horizontal [place]:44 deg T Wave [place]:12 deg S-T Horizontal [place]:42 deg S-T Front [place]:22 deg Severity:- BORDERLINE ECG - INTERP:SINUS RHYTHM INTERP:PROBABLE LEFT ATRIAL ABNORMALITY Electronically signed by: PATRICK BURKETT 11-09-2016 13:17:14 LAB RESULTS reviewed during visit today primarily from [facility]: LIPID Lab Results Component Value Date [...] PLTEX 370 09/18/2016 I reviewed records from [facility] for office visit on 11/22/2016 w hich is summarized in the HPI. Above data and testing is reviewed this visit; testing below is historical data unless othe rwise specified. ASSESSMENT: 1. Coronary artery disease A. Seen at [facility] they had EKG and sent her home stating it was GERD B. Seen in the emergency room at [facility] for chest pain. She was schedule for stre ss test and discharged home. C. Stress Test 05/16/16, is maximal asymptomatic stress test, [facility] er very poor function status, achieving [...] trace [place], normal aorta other than mild c alcification [...] this chart may have been created with [employer] voice recognition software. Occasi onal wrong-word or [...] [place] | | | | | | [address] | | | | | | | | +--------+---------+ + + + | 11/21/ | Office | Cardiology | Yesi, | | | 2019 | Visit | | JOSE ALBERTO Linder [address] | | | | | | [place], | | | | | | [place] [address] | | | | | | [phone] | | | | | | | [...] + + | Coronary artery disease involving [place] coronary artery of [place] heart with unstable | | angina pectoris (HCC) | + + | Transient cerebral ischemia, unspecified type | + + documented in this encounter
--- OUTSIDE RECORDS SUMMARY | ~2019-05-18 | XMS | Encounter Summary ---
Demographics + + + | Address | [address] | | | [place] [address] | + + + | Home Phone [...] | Author | [facility] | | | and [place] | + + + | Organization | [facility] | | [...] | | | | | [place] [address] | | + + + + + | Hunter Jackson | ECON | [place] | | + + + + + | Wes Jackson | ECON | [place], [place] | | + + + + + | Oziel Jackson | ECON | [place], [place] | | + + + + + Care Team Providers + +------+ + | Care Sap Pi Developer Name | Role | Phone | + +------+ + | Sugar Cruz MD | PCP | | + +------+ + Reason for Visit + + + | Reason | Comments | + + + | Follow-up | recurrent epistaxis,last one was Friday,did go to the ER in | | | [place] | + + + Evaluate & Treat (Urgent) +--------+ + + + + + | Status | Reason | Specialty | Diagnoses / | Referred By | Referred To | | | | | Procedures | Contact | Contact | +--------+ + + + + + | Closed | Specialty | Otolaryngolog | Diagnoses | Nancy, | Zion Valencia | | | Services | y | Recurrent | Sugar Reilly MD | MD Gabriel [address] | | | Required | | epistaxis | [address] | | | | | | [address] [place] | [address] | | | | | | [place], [place] | [place], | | | | | | [address] | [place] [address] | | | | | | Phone: | Phone: | | | | | | [phone] | [phone] | | | | | | Fax: | Fax: | | | | | | [phone] | [phone] | +--------+ + + + + + Encounter Details +--------+---------+ + + + | Date | Type | Department | Care Team | Description | +--------+---------+ + + + | 08/31/ | Office | [facility] [place] | Sugar Cruz, | Epistaxis (Primary | | 2015 | Visit | OTOLARYNGOLOGY [address] | [address] | Dx) | | | | [address] | [place], [place] | | | | | [place], [place] | [address] | | | | | [address] | | | | | | [phone] | Zion Valencia MD | | | | | | [address] | | | | | | [address] [place], [place] | | | | | | [address] | | | | | | | [...] + | Blood Pressure | 120/60 | 08/31/2014 9:50 AM | | | | | PDT | | + + + + + | Pulse | 58 | 08/31/2014 9:50 AM | | | | | PDT | | + + + + + | Temperature | - | - | | + + + + + | Respiratory Rate | - | - | | + + + + + | Oxygen Saturation | 98% | 08/31/2014 9:50 AM | | | | | PDT | | + + + + + | Inhaled Oxygen | - | - | | | Concentration | | | | + + + + + | Weight | 85.7 kg (189 lb) | 08/31/2014 9:50 AM | | | | | PDT | | + + + + + | Height | 162.6 cm (5' 4") | 08/31/2014 9:50 AM | | | | | PDT | | + + + + + | Body Mass Index | 32.44 | 08/31/2014 9:50 AM | | | | | PDT | | + + + + + documented in this encounter Progress Notes Zion Valencia MD - 08/31/2014 11:06 AM PDT [facility] OTOLARYNGOLOGY [address] [place] [address] OFFICE NOTE ZION VALENCIA MD Patient: JACLYN JACKSON Admitting: MR #: [id number] LOC: PT TYPE: Adm Date: 08/31/2014 : 1935 DATE OF VISIT: 08/31/2014. The patient has continued to have further problems with epistaxis. She was seen back in [facility]. She was treated in the emergency room back about 10 days ago, had some more bleed ing this past Friday. She comes in for followup evaluation. It always continues to bleed from the left hand side. States she has been placing ointment in her nose trying to keep this area soft. In the emergency room, they also treated her with some silver nitrate. Th e examination today shows that nasal passages on both sides are wide open. There is still a little bit of stain from the treatment in the lower part Little's triangle on the left gutierrez nd side. No obvious mass or lesions are noted. The left side was then sprayed well with some Adonis-Synephrine and topical Xylocaine. Floor of the mouth, buccal mucosa, hard palate, teeth, lips, gums are healthy. No mass seen in the oropharynx and posterior pharyngeal wa ll is smooth. Tongue and soft palate are smooth and move symmetrically. Neck there are no masses or lymphadenopathy. Thyroid gland is smooth and trachea was midline. Ear canals a re open and clean. The left nasal passage was then examined with a special procedure with the fiberoptic scop e. It was placed through the nasal passage all the way to the nasopharynx. A prominent ve ssel in the middle of the septum on the left hand side where she has a small bend in the se ptum was noted, also some prominent vessels just above this area. No other mass or lesion seen in the nasal passages. No other deformities. No mass seen in the nasopharynx. The scope was then removed. Some further treatment with some viscous Xylocaine was applied and then following this rl kandy nitrate was used to treat the area with the vessels noted on the bend of the septum and also up high on the septum just above the bend area. Once thoroughly cauterized the acces s was dried off with a Q-tip, some topical antibiotic was applied. The patient was advise d on how to continue to treat the area with A and D ointment. If there are further problem s with bleeding, she will recheck with ENT. ZION VALENCIA MD Dictated by ZION VALENCIA MD 08/31/2014 11:06:56 Transcribed on 08/31/2014 11:19:38 by [facility] job# [id number] Confirmation #: [id number] cc: SUGAR CRUZ MD [facility] - 08/31/2014 11:03 AM PDTSee dictation # [id number] signed by Zion Valencia MD at 08/31/2014 11:08 AM PDTdocumented in th is encounter Plan of [...] | | | | | | [place] [address] | | | | | | [phone] | | | | | | | [...]
--- OUTSIDE RECORDS SUMMARY | ~2019-05-18 | XMS | Encounter Summary ---
Demographics + + + | Address | [address] | | | [place] [address] | + + + | Home Phone [...] Author | [facility] | | | and [place] | + + + | Organization | [facility] | | | and [place] | + + + | Address | Unknown | + + + | Phone | Unavailable | + + + Support + + + + + | Name | Relationship | Address | Phone | + + + + + | Osmin Jackson | ECON | [address] | | | | | [place] [address] | | + + + + + | Hunter Jackson | ECON | [place] | | + + + + + | Wes Jackson | ECON | [place], [place] | | + + + + + | Oziel Jackson | ECON | [place], [place] | | + + + + + Care Team Providers + +------+ + | Care Personal Finance Instructor Name | Role | Phone | + [...] + + | 07/18/ | Telephone | [facility] | Rodolfo Cruz, | Medication | | 2015 | | MEDICINE [address] [place] [address] | MD Raya Z[address]ta [address] | Management | | | | Preet [place] | [place] [address] | | | | | [place] [address] | [address] | | | | | [phone] | | | +--------+ + + + [...] | | | | | | [place] [address] | | | | | | [phone] | | | | | | | | +--------+---------+ + + + documented as of this encounter Visit Diagnoses Not on filedocumented in this encounter"
--- OUTSIDE RECORDS SUMMARY | ~2019-05-18 | XMS | Encounter Summary ---
Demographics + + + | Address | [address] | | | [place] [address] | + + + | Home Phone [...] + | Author | [facility] | | | and [place] | + + + | Organization | [facility] | [...] | | | | | [place] [address] | | + + + + + | Hunter Jackson | ECON | [place] | | + + + + + | Wes Jackson | ECON | [place], [place] | | + + + + + | Oziel Jackson | ECON | [place], [place] | | + + + + + Care Team Providers + +------+ + | Care Health Consultant Name | Role | Phone | [...] + + | 10/06/ | Telephone | [facility] | Rodolfo Cruz, | Medication Prior | | 2013 | | MEDICINE [facility] | MD Raya Z[address] | Authorization | | | | Preet Batista | [place] [address] | ([employer]) | | | | [place] [address] | [address] | | | | | [phone] | | | +--------+ + + + [...] STREETER | | | | | | [id number] | | | | | | | | +--------+---------+ + + + | 11/21/ | Office | Cardiology | Yesi, | | | 2019 | Visit | | JOSE ALBERTO Linder [address] | | | | | | [place] | | | | | | [place] [address] | | | | | | [phone] | | | | | | | | +--------+---------+ + + + documented as of this encounter Visit Diagnoses Not on filedocumented in this encounter"
--- OUTSIDE RECORDS SUMMARY | ~2019-05-18 | XMS | Encounter Summary ---
Demographics + + + | Address | [address] | | | [place] [address] | + + + | Home Phone [...] | [facility] | | | and [place] | + + + | Organization | [facility] | | | [...] | | | | | [place] [address] | | + + + + + | Hunter Jackson | ECON | [place] | | + + + + + | Wes Jackson | ECON | [place], [place] | | + + + + + | Oziel Jackson | ECON | [place], [place] | | + + + + + Care Team Providers + +------+ + | Care Green Building Engineer Name | Role | Phone | [...] | Lumbosacral | Bal, | [address] | | | | | spondylosis | Harsha Moreno MD | L[place], | | | | | without | [address] | [place] | | | | | myelopathy | [facility] | [address] | | | | | Procedures | [place] | Phone: | | | | | [place] | [address] | [phone] | | | | | DX/THER AGNT | Phone: | Fax: | | | | | PARAVERT | [phone] | [phone] | | | | | FACET JOINT, | Fax: | | | | | | LUMBAR/SAC, | [phone] | | | | | | 1ST LEVEL | | | | | | | [place] INJ | | | | | | [...] + + | 12/09/ | Hospital | [facility] | Yany, | Chronic low back | | 2015 | Encounter | MED CTR XRAY [address] | [address] | pain; DDD | | | | [address] [place] | [facility], | (degenerative disc | | | | [place] [address] | [place] [address] | disease), lumbar; | | | | [phone] | [phone] | Facet arthritis of | | | | | | lumbar region | | | | | [employer] [place] | | +--------+ + + + [...] | | | | | | [place] [address] | | | | | | [phone] | | | | | | | [...] 723.1 Soumya Jackson presents to the | [facility] | | fluoroscopy suite for fluoroscopically guided bilateral L4 medial [facility] | | branch blocks and bilateral L5 [...] [address] | [place] | [phone] | | [facility] | | [address] | | | - IMAGING | | [...]
--- OUTSIDE RECORDS SUMMARY | ~2019-05-18 | XMS | Encounter Summary ---
Demographics + + + | Address | [address] | | | [place] [address] | + + + | Home Phone [...] | Author | [facility] | | | and [place] | + + + | Organization | [facility] | | [...] [place] | | | | | [place] [address] | | + + + + + | Hunter Jackson | ECON | [place] | | + + + + + | Wes Jackson | ECON | [place], [place] | | + + + + + | Oziel Jackson | ECON | [place], [place] | | + + + + + Care Team Providers + +------+ + | Care Information Services Consultant Name | Role | Phone | [...] | | | atherosclero | | [address] | | | | | sis of | | [place], | | | | | unspecified | | [place] [address] | | | | | type of | | Phone: | | | | | vessel, | | [phone] | | | | | [place] | | Fax: | | | | | graft | | [phone] | | | | | Coronary | | | | | | | atherosclero | | | | | | | sis of | | | | | | | unspecified | | | | | | | type of | | | | | | | vessel, | | | | | | | [place] | | | | | | | graft | | | | | | | Procedures | | | | | | | [facility] | | | | | | | | | | | | | | W/VIDEO-ASST | | | | | | | VEIN | | | | | | | HARVEST,CABG | | | | | | | [place] CABG, | | | | | | | ARTERY-VEIN, | | | | | | | FOUR [place] | | | | | | | CABG, | | | | | | | ARTERIAL, | | | | | | | SINGLE | | | +--------+--------+ + + + + Encounter Details +--------+ + + + + | Date | Type | Department | Care Team | Description | +--------+ + + + + | 10/31/ | Hospital | [facility] | Amna Benavides, | | | 2017 | Encounter | HEART MED CTR | PA-C [address] | | | | | LABORATORY [address] | [address] [place], [place] | | | | | [address] [place] | [address] | | | | | [address] | | | | | | [phone] | | | +--------+ + + + [...] STREETER | | | | | | [address] | | | | | | | | +--------+---------+ + + + | 11/21/ | Office | Cardiology | Yesi, | | | 2019 | Visit | | JOSE ALBERTO Linder [address] | | | | | | [place], | | | | | | [place] [address] | | | | | | [phone] | | | | | | | | +--------+---------+ + + + documented as of this encounter Visit Diagnoses Not on filedocumented in this encounter"
--- OUTSIDE RECORDS SUMMARY | ~2019-05-18 | XMS | Encounter Summary ---
Demographics + + + | Address | [address] | | | [place] [address] | + + + | Home Phone [...] Author | [facility] | | | and [place] | + + + | Organization | [facility] | [...] | | | | | [place] [address] | | + + + + + | Hunter Jackson | ECON | [place] | | + + + + + | Wes Jackson | ECON | [place], [place] | | + + + + + | Oziel Jackson | ECON | [place], [place] | | + + + + + Care Team Providers + +------+ + | Care Hander In Name | Role | Phone | + +------+ + PCP | Unavailable | + +------+ + Encounter Details +--------+ + + + + | Date | Type | Department | Care Team | Description | +--------+ + + + + | 04/04/ | [facility] | [facility] | Rodolfo Cruz, | | | 2008 | Encounter | MED CTR XRAY [address] | [address] | | | | | [place] | [place], [place] | | | | | [place] [address] | [address] | | | | | [phone] | | | +--------+ + + + [...] | | | | | | [place] [address] | | | | | | [phone] | | | | | | | | +--------+---------+ + + + documented as of this encounter Visit Diagnoses Not on filedocumented in this encounter"
--- OUTSIDE RECORDS SUMMARY | ~2019-05-18 | XMS | Encounter Summary ---
Demographics + + + | Address | [address] | | | [place] [address] | + + + | Home Phone [...] + + | Author | [facility] | | | and [place] | + + + | Organization | [facility] | [...] | | | | | [place] [address] | | + + + + + | Hunter Jackson | ECON | [place] | | + + + + + | Wes Jackson | ECON | [place], [place] | | + + + + + | Oziel Jackson | ECON | [place], [place] | | + + + + + Care Team Providers + +------+ + | Care Licensed Marriage And Family Therapist Name | Role | Phone | [...] Pulmonary | Rodolfo Reilly MD | [address] | | | | | nodules | [address] | [place], | | | | | Procedures | [address]VE [place] | [place] [address] | | | | | CT Chest w | [place], [place] | Phone: | | | | | Contrast | [address] | [phone] | | | | | | Phone: | Fax: | | | | | | [phone] | [phone] | | | | | | Fax: | | | | | | | [phone] | | +--------+--------+ + + + + Encounter Details +--------+ + + + + | Date | Type | Department | Care Team | Description | +--------+ + + + + | 08/18/ | Hospital | [facility] | Rodolfo Cruz, | Pulmonary nodules | | 2015 | Encounter | MED CTR CT [address] | MD [address] | | | | | [place], | [place], [place] | | | | | [place] [address] | [address] | | | | | [phone] | | | +--------+ + + + [...] [place] | | | | | | [address] | | | | | | | | +--------+---------+ + + + | 11/21/ | Office | Cardiology | Yesi, | | | 2019 | Visit | | JOSE ALBERTO Linder [address] | | | | | | [place], | | | | | | [place] [address] | | | | | | [phone] | | | | | | | [...] COMPARISON: CT chest 02/22/2014, CT chest | [facility] | | abdomen pelvis 11/09/2013 TECHNIQUE: Axial images were obtained from | [facility] | | the base of the neck [...] intravenous administration of 70 mL | | [id number] contrast. Multiplanar reformatted images created.RADIATION DOSE: DLP [...] [address] | [place] | [phone] | | [facility] | | [address] | | | - IMAGING | | [...] PDT | | | | | Starting [facility] 08/18/14 at 1250, For | | | | | | | 1 dose, Cat Scanner | | | | | | + +--------+ +--------+------+------+ +---+---+ | | | +---+---+ documented in this encounter"
--- OUTSIDE RECORDS SUMMARY | ~2019-05-18 | XMS | Encounter Summary ---
Demographics + + + | Address | [address] | | | [place] [address] | + + + | Home Phone [...] + | Author | [facility] | | | and [place] | + + + | Organization | [facility] | | | and [place] | + + + | Address | Unknown | + + + | Phone | Unavailable | + + + Support + + + + + | Name | Relationship | Address | Phone | + + + + + | Osmin Jackson | ECON | [address] | | | | | [place] [address] | | + + + + + | Hunter Jackson | ECON | [place] | | + + + + + | Wes Jackson | ECON | [place], [place] | | + + + + + | Oziel Jackson | ECON | [place], [place] | | + + + + + Care Team Providers + +------+ + | Care Ceramic Design Engineer Name | Role | Phone [...] [place], | | | | | | [address] | [place] [address] | | | | | | Phone: | Phone: | | | | | | [phone] | [phone] | | | | | | Fax: | Fax: | | | | | | [phone] | [phone] | +--------+ + + + + + Encounter Details +--------+---------+ + + + | Date | Type | Department | Care Team | Description | +--------+---------+ + + + | 07/26/ | Office | [facility] | Ethan Ny | Varicose veins | | 2015 | Visit | SURGERY [address] | MD Mayte, FACS [address] | (Primary Dx) | | | | [place], [place] | [address] [facility] | | | | | [address] | [place] [address] | | | | | [phone] | [phone] | | | | | | | [...] own food shopping and aquatics. 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 Mild leg swelling helped with lasix. Sister with varicose vein and had surgery. AIDEN Score: 2 DATA/RECENT IMAGING None Rodolfo Cruz MD's notes were reviewed in clinic today. PAST MEDICAL HISTORY She has a past medical history of Hypertension; High cholesterol; Hepatitis A (1967); Osteo porosis; MGUS (monoclonal gammopathy of unknown significance); COPD (chronic obstructive pul monary disease) ([facility]); Mononucleosis; Miscarriage; Asthma (); Fracture of foot (approx 2008); Hyperplastic colon polyp (03/28/10); GERD (04/17/2010); TIA (05/08/2010); PUD (peptic ulcer disease) (11/08/2013); Anemia (11/24/2013); Hypothyroidism; Valvular heart disease (05/23); Herpes zoster (05/03/2011); DJD (degenerative joint disease) (07/08/2013); Pulmonary nodules (12/08/2013); Spondylosis, cervical (08/30/2010); UGIB (upper gastrointestinal bleed) (11/14/2013); Vertigo (09/03/2012); Anxiety (May 2014); Arthritis; Encounter for blood transfus ion (November 2013); Stroke ([facility]) (Apr 2010); Hep B complicating ; Chronic low back dorota n (08/24/2014); DDD (degenerative disc disease), lumbar (08/24/2014); Facet arthritis of lumba r region (08/24/2014); Essential hypertension; Clotting disorder ([facility]) (2013); Environmental allergies; Heart murmur; and Tinea corporis (01/31/2015). Past Surgical History She Past Surgical History Procedure Laterality Date Colonoscopy 05/2002; 03/28/10 next due 03/2020 Removal lower left nodules 2004 Foot fracture surgery 2004 left foot Tonsillectomy and adenoidectomy 1955 Upper gastrointestinal endoscopy 11/15/2013 EGD * IP RM: 428 * ; Laterality: N/A; Surgeon: Lauri Garrison MD; [facility] Upper gastrointestinal endoscopy 11/04/2013 EGD IP 449; Laterality: N/A; Surgeon: Samm Pandya MD; Location: [facility] Hemorrhoid surgery 2817-2581 Thyroidectomy Allergies Allergen Reactions Diclofenac Sodium Duodenal [...] REPORT: PATIENT NAME : Soumya Jackson EQUIPMENT: [employer] with 10-5 mHertz probe. INDICATIONS: LEFT calf [...] | | | | | | [place] [address] | | | | | | [phone] | | | | | | | | +--------+---------+ + + + documented as of this encounter Visit Diagnoses + + | Diagnosis | + + | Varicose veins - Primary Asymptomatic varicose veins | + + documented in this encounter
--- OUTSIDE RECORDS SUMMARY | ~2019-05-18 | XMS | Encounter Summary ---
Demographics + + + | Address | [address] | | | [place] [address] | + + + | Home Phone [...] | [facility] | | | and [place] | + + + | Organization | [facility] | | [...] | | | | | [place] [address] | | + + + + + | Hunter Jackson | ECON | [place] | | + + + + + | Wes Jackson | ECON | [place], [place] | | + + + + + | Oziel Jackson | ECON | [place], [place] | | + + + + + Care Team Providers + +------+ + | Care Manager Water Name | Role | Phone | + [...] | Visit | ORTHOPEDIC SURGERY | [address] [facility] | syndrome, right | | | | [address] [facility] | [place] [address] | (Primary Dx); [facility] | | | | [place] | [address] | arthritis | | | | [address] | | | | | | [phone] | | | +--------+---------+ + + + [...] | | | | | | [place], [place] | | | | | | [address] | | | | | | | | +--------+---------+ + + + | 11/21/ | Office | Cardiology | Yesi, | | | 2019 | Visit | | JOSE ALBERTO Linder [address] | | | | | | [place], | | | | | | [place] [address] | | | | | | [phone] | | | | | | | [...] PST | | | | | ONCE, [facility] 06/06/16 at 1145, For 1 | | | | | | | dose, Shake well. Not for IV | | | | | | | use., | | | | | | + +-------+ +-------+---+ + +---+---+ | | | +---+---+ documented in this encounter"
--- OUTSIDE RECORDS SUMMARY | ~2019-05-18 | XMS | Encounter Summary ---
Demographics + + + | Address | [address] | | | [place] [address] | + + + | Home Phone [...] Author | [facility] | | | and [place] | + + + | Organization | [facility] | | | and [place] | + + + | Address | Unknown | + + + | Phone | Unavailable | + + + Support + + + + + | Name | Relationship | Address | Phone | + + + + + | Osmin Jackson | ECON | [address] | | | | | [place] [address] | | + + + + + | Hunter Jackson | ECON | [place] | | + + + + + | Wes Jackson | ECON | [place], [place] | | + + + + + | Oziel Jackson | ECON | [place], [place] | | + + + + + Care Team Providers + +------+ + | Care Manager Urgent Care Name | Role | Phone | + +------+ + PCP | Unavailable | + +------+ + Encounter Details +--------+ + + + + | Date | Type | Department | Care Team | Description | +--------+ + + + + | 08/07/ | Hospital | [facility] | | | | 2011 | Encounter | MED CTR CARDIAC | | | | | | SERVICES [address] | | | | | | [place], | | | | | | [place] [address] | | | +--------+ + + + [...] REFERRING AND READING PHYSICIAN: Wes Capone MD BUSINESS ENGLISH INSTRUCTOR: Kim Spicer CLINICAL HISTORY: Abnormal brain scan. [...] DISEASE . DICTATED BY: Wes Capone MD Neurologist/Office Worker JOB #: [id number] EXT JOB #:[id number] cc: Rodolfo Cruz MD <Electronically Signed by Wes Capone MD> 08/15/10 2201 María Chua MD - 08/07/2010 1:32 PM PDTDATE: 08/12/2010 VISUAL EVOKED POTENTIALS REFERRING AND READING PHYSICIAN: Wes Capone MD BUSINESS ENGLISH INSTRUCTOR: Kim Spicer LOCATION: Outpatient. DIAGNOSIS: Abnormal brain [...] TING DISEASE. DICTATED BY: Wes Capone MD Neurologist/Office Worker JOB #: [id number] EXT JOB #:[id number] cc: Rodolfo Cruz MD <Electronically Signed by [...] [place], | | | | | | [place] [address] | | | | | | [phone] | | | | | | | | +--------+---------+ + + + documented as of this encounter Visit Diagnoses Not on filedocumented in this encounter"
--- OUTSIDE RECORDS SUMMARY | ~2019-05-18 | XMS | Encounter Summary ---
Demographics + + + | Address | [address] | | | [place] [address] | + + + | Home Phone [...] | Author | [facility] | | | and [place] | + + + | Organization | [facility] | | | [...] | | | | | [place] [address] | | + + + + + | Hunter Jackson | ECON | [place] | | + + + + + | Wes Jackson | ECON | [place], [place] | | + + + + + | Oziel Jackson | ECON | [place], [place] | | + + + + + Care Team Providers + +------+ + | Care Data Librarian Name | Role | Phone | + [...] | (Screening) (log | | | | [place], | [place], | from 06/23/15 till | | | | [place] [address] | [place] [address] | 07/07/15) | | | | [phone] | [phone] | | | | | | | [...] STREET[place] | | | | | | [address] | | | | | | | | +--------+---------+ + + + | 11/21/ | Office | Cardiology | Yesi, | | | 2020 | Visit | | JOSE ALBERTO Linder [address] | | | | | | [place], | | | | | | [place] [address] | | | | | | [phone] | | | | | | | | +--------+---------+ + + + documented as of this encounter Visit Diagnoses Not on filedocumented in this encounter"
--- OUTSIDE RECORDS SUMMARY | ~2019-05-18 | XMS | Encounter Summary ---
Demographics + + + | Address | [address] | | | [place] [address] | + + + | Home Phone [...] [facility] | | | and [place] | + + + | Organization | [facility] | | | [...] | | | | | [place] [address] | | + + + + + | Hunter Jackson | ECON | [place] | | + + + + + | Wes Jackson | ECON | [place], [place] | | + + + + + | Oziel Jackson | ECON | [place], [place] | | + + + + + Care Team Providers + +------+ + | Care Sock Examiner Name | Role | Phone | [...] | [address] | | | | | [address] | | | | | | [phone] | | | +--------+--------+ + + + [...] STREET[place] | | | | | | [address] | | | | | | | | +--------+---------+ + + + | 11/21/ | Office | Cardiology | Yesi, | | | 2019 | Visit | | JOSE ALBERTO [address]inder [address] | | | | | | [place] | | | | | | [place] [address] | | | | | | [phone] | | | | | | | | +--------+---------+ + + + documented as of this encounter Visit Diagnoses Not on filedocumented in this encounter"
--- OUTSIDE RECORDS SUMMARY | ~2019-05-18 | XMS | Encounter Summary ---
Demographics + + + | Address | [address] | | | [place] [address] | + + + | Home Phone [...] | Author | [facility] | | | and [place] | + + + | Organization | [facility] [...] | | | | | [place] [address] | | + + + + + | Hunter Jackson | ECON | [place] | | + + + + + | Wes Jackson | ECON | [place], [place] | | + + + + + | Oziel Jackson | ECON | [place], [place] | | + + + + + Care Team Providers + +------+ + | Care Contact Person Name | Role | Phone | [...] + | 05/19/ | Office | [facility] | Ulysses Jensen, | Primary | | 2014 | Visit | ORTHOPEDIC SURGERY | MD Danny PARHAM | osteoarthritis of | | | | [address] [facility] | [place] [address] | right shoulder | | | | [place] | [address] | (Primary Dx) | | | | [address] | | | | | | [phone] | | | +--------+---------+ + + + [...] STREETER | | | | | | [address] | | | | | | | | +--------+---------+ + + + | 11/21/ | Office | Cardiology | Yesi, | | | 2019 | Visit | | JOSE ALBERTO [address]inder [address] | | | | | | [place], | | | | | | [place] [address] | | | | | | [phone] | | | | | | | | +--------+---------+ + + + documented as of this encounter Visit Diagnoses + + | Diagnosis | + + | Primary osteoarthritis of right shoulder - Primary Primary localized osteoarthrosis, | | shoulder region | + + documented in this encounter
--- OUTSIDE RECORDS SUMMARY | ~2019-05-18 | XMS | Encounter Summary ---
Demographics + + + | Address | [address] | | | [place] [address] | + + + | Home Phone [...] Author | [facility] | | | and [place] | + + + | Organization | [facility] [...] | | | | | [place] [address] | | + + + + + | Hunter Jackson | ECON | [place] | | + + + + + | Wes Jackson | ECON | [place], [place] | | + + + + + | Oziel Jackson | ECON | [place], [place] | | + + + + + Care Team Providers + +------+ + | Care Clinical Staff Pharmacist Name | Role | Phone | + [...] Pulmonary | Rodolfo Reilly MD | [address] | | | | | nodules | [address] | [place], | | | | | 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 | [place], [place] | Phone: | | | | | Procedures | [address] | [phone] | | | | | CT Chest w | Phone: | Fax: | | | | | Contrast | [phone] | [phone] | | | | | 02/16/14 | Fax: | | | | | | | [phone] | | +--------+--------+ + + + + [...] Pulmonary | Rodolfo Reilly MD | [address] | | | | | nodules | [address] | [place], | | | | | 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
--- OUTSIDE RECORDS SUMMARY | ~2019-05-18 | XMS | Encounter Summary ---
Demographics + + + | Address | [address] | | | [place] [address] | + + + | Home Phone [...] Author | [facility] | | | and [place] | + + + | Organization | [facility] | [...] | | | | | [place] [address] | | + + + + + | Hunter Jackson | ECON | [place] | | + + + + + | Wes Jackson | ECON | [place], [place] | | + + + + + | Oziel Jackson | ECON | [place], [place] | | + + + + + Care Team Providers + +------+ + | Care Leather Worker Name | Role | Phone | [...] pain (Primary Dx); | | | | [place], | [facility], | Facet arthritis [place] | | | | [place] [address] | [place] [address] | lumbar region | | | | [phone] | [phone] | | | | | | | [...] | | | | | | [place] [address] | | | | | | [phone] | | | | | | | | +--------+---------+ + + + documented as of this encounter Visit Diagnoses + + | Diagnosis | + + | Chronic low back pain - Primary Lumbago | + + | Facet arthritis of lumbar region Lumbosacral spondylosis without myelopathy | + + documented in this encounter"
--- OUTSIDE RECORDS SUMMARY | ~2019-05-18 | XMS | Encounter Summary ---
Demographics + + + | Address | [address] | | | [place] [address] | + + + | Home Phone [...] Author | [facility] | | | and [place] | + + + | Organization | [facility] | | | and [...] | | | | | [place] [address] | | + + + + + | Hunter Jackson | ECON | [place] | | + + + + + | Wes Jackson | ECON | [place], [place] | | + + + + + | Oziel Jackson | ECON | [place], [place] | | + + + + + Care Team Providers + +------+ + | Care Web Consultant Name | Role | Phone | + +------+ + PCP | Unavailable | + +------+ + Encounter Details +--------+ + + + + | Date | Type | Department | Care Team | Description | +--------+ + + + + | 10/24/ | [facility] | [facility] | Rodolfo Cruz, | | | 2009 | Encounter | MED CTR XRAY [address] | [address] | | | | | [place] | [place], [place] | | | | | [place], [place] [address] | [address] | | | | | [phone] | | | +--------+ + + + [...] | | | | | | [place] [address] | | | | | | [phone] | | | | | | | | +--------+---------+ + + + documented as of this encounter Visit Diagnoses Not on filedocumented in this encounter"
--- OUTSIDE RECORDS SUMMARY | ~2019-05-18 | XMS | Encounter Summary ---
Demographics + + + | Address | [address] | | | [place] [address] | + + + | Home Phone [...] | Author | [facility] | | | and [place] | + + + | Organization | [facility] | [...] | | | | | [place] [address] | | + + + + + | Hunter Jackson | ECON | [place] | | + + + + + | Wes Jackson | ECON | [place], [place] | | + + + + + | Oziel Jackson | ECON | [place], [place] | | + + + + + Care Team Providers + +------+ + | Care Fur Nailer Name | Role | Phone | + [...] back pain (Primary | | | | [place], | [place], | Dx) | | | | [place] [address] | [place] [address] | | | | | [phone] | [phone] | | | | | | | [...] has no apparent deficits with short or superintendent terminal memory. 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
--- OUTSIDE RECORDS SUMMARY | ~2019-05-18 | XMS | Encounter Summary ---
Demographics + + + | Address | [address] | | | [place] [address] | + + + | Home Phone [...] + | Author | [facility] | | | and [place] | + + + | Organization | [facility] | | [...] [place] | | | | | [place] [address] | | + + + + + | Hunter Jackson | ECON | [place] | | + + + + + | Wes Jackson | ECON | [place], [place] | | + + + + + | Oziel Jackson | ECON | [place], [place] | | + + + + + Care Team Providers + +------+ + | Care Marketing Producer Name | Role | Phone | + [...] | | | | | [place] | [address] | | | | | | stenosis of | Phone: | | | | | | cervical | [phone] | | | | | | region | Fax: | | | | | | Stenosis of | [phone] | | | | | | cervical [...] | disc disease), | | | | [place], | [facility], | cervical (Primary | | | | [place] [address] | [place] [address] | Dx); [place] | | | | [phone] | [phone] | stenosis of cervical | | | [...] of blood sugars if you are diabetic. MCC risk can lead to osteoporosis which is [...] She started PT at [facility] [place], but then self discharged because it aggravated [...] with the patient today during the visit. [facility] MRI shows no disc bulge or [...] [place] | | | | | | [id number] | | | | | | | | +--------+---------+ + + + | 11/21/ | Office | Cardiology | Yesi, | | | 2019 | Visit | | JOSE ALBERTO Linder [address] | | | | | | [place], | | | | | | [place] [address] | | | | | | [phone] | | | | | | | [...] to the fluoroscopy suite for a | [facility] | | fluoroscopically-guided C7-T1 interlaminar epidural steroid [...] [address] | [place] | [phone] | | [facility] | | [address] | | | - IMAGING | | [...]
--- OUTSIDE RECORDS SUMMARY | ~2019-05-18 | XMS | Encounter Summary ---
Demographics + + + | Address | [address] | | | [place] [address] | + + + | Home Phone [...] | Author | [facility] | | | and [place] | + + + | Organization | [facility] | | | and [place] | + + + | Address | Unknown | + + + | Phone | Unavailable | + + + Support + + + + + | Name | Relationship | Address | Phone | + + + + + | Osmin Jackson | ECON | [address] | | | | | [place] [address] | | + + + + + | Hunter Jackson | ECON | [place] | | + + + + + | Wes Jackson | ECON | [place], [place] | | + + + + + | Oziel Jackson | ECON | [place], [place] | | + + + + + Care Team Providers + +------+ + | Care Special Service Officer Name | Role | Phone | [...] | Visit | ORTHOPEDIC SURGERY | [address] [facility] | carpometacarpal | | | | [facility] | [place] [facility] [place] | ([facility]) joint of right | | | | [place], [place] | [address] | thumb (Primary Dx); | | | | [address] | | Rotator cuff tear | | | | [phone] | | arthropathy of right | | [...] [place] | | | | | | [address] | | | | | | | | +--------+---------+ + + + | 11/21/ | Office | Cardiology | Yesi, | | | 2019 | Visit | | JOSE ALBERTO [address]inder [address] | | | | | | [place], | | | | | | [place] [address] | | | | | | [phone] | | | | | | | [...] | | (Comment | | Intramuscular, ONCE, [facility] 01/15/18 | | AM PDT | | [...] PDT | | | | | ONCE, [facility] 01/15/18 at 1130, For 1 | | | | | | | dose, Shake well. Not for IV | | | | | | | use., | | | | | | + +-------+ +-------+---+ + +---+---+ | | | +---+---+ documented in this encounter
--- OUTSIDE RECORDS SUMMARY | ~2019-05-18 | XMS | Encounter Summary ---
Demographics + + + | Address | [address] | | | [place] [address] | + + + | Home Phone [...] | Author | [facility] | | | and [place] | + + + | Organization | [facility] [...] | | | | | [place] [address] | | + + + + + | Hunter Jackson | ECON | [place] | | + + + + + | Wes Jackson | ECON | [place], [place] | | + + + + + | Oziel Jackson | ECON | [place], [place] | | + + + + + Care Team Providers + +------+ + | Care Planing Machine Operator Name | Role | Phone | + +------+ + | oRdolfo Cruz MD | PCP | | + +------+ + Reason for Visit + + + | Reason | Comments | + + + | Heart Problem | | + + + Encounter Details +--------+ + + + + | Date | Type | Department | Care Team | Description | +--------+ + + + + | 09/29/ | Telephone | [facility] | Rodolfo Cruz, | Heart Problem | | 2013 | | MEDICINE [address] [place] [address] | MD [address] | | | | | [place] | [place] [address] | | | | | [place] [address] | [address] | | | | | [phone] | | | +--------+ + + + [...] | | | | | | [place] [address] | | | | | | [phone] | | | | | | | | +--------+---------+ + + + documented as of this encounter Visit Diagnoses Not on filedocumented in this encounter"
--- OUTSIDE RECORDS SUMMARY | ~2019-05-18 | XMS | Encounter Summary ---
Demographics + + + | Address | [address] | | | [place] [address] | + + + | Home Phone [...] Author | [facility] | | | and [place] | + + + | Organization | [facility] | [...] + | Hunter Jackson | ECON | [place] | | + + + + + | Wes Jackson | ECON | [place], [place] | | + + + + + | Oziel Jackson | ECON | [place], [place] | | + + + + + Care Team Providers + +------+ + | Care Cnc Lathe Machine Operator Name | Role | Phone | + +------+ + PCP | Unavailable | + +------+ + Encounter Details +--------+ + + + + | Date | Type | Department | Care Team | Description | +--------+ + + + + | 07/03/ | Hospital | [facility] | | | | 2010 | Encounter | MED CTR XRAY [address] | | | | | | [address] [place] | | | | | | [place] [address] | | | | | | [phone] | | | +--------+ + + + [...] [place]REET[place] | | | | | | [address] | | | | | | | | +--------+---------+ + + + | 11/21/ | Office | Cardiology | Yesi, | | | 2019 | Visit | | JOSE ALBERTO [address] | | | | | | [place], | | | | | | [place] [address] | | | | | | [phone] | | | | | | | | +--------+---------+ + + + documented as of this encounter Visit Diagnoses Not on filedocumented in this encounter"
--- OUTSIDE RECORDS SUMMARY | ~2019-05-18 | XMS | Encounter Summary ---
Demographics + + + | Address | [address] | | | [place] [address] | + + + | Home Phone [...] | Author | [facility] | | | and [place] | + + + | Organization | [facility] | | [...] [place] | | | | | [place] [address] | | + + + + + | Hunter Jackson | ECON | [place] | | + + + + + | Wes Jackson | ECON | [place], [place] | | + + + + + | Oziel Jackson | ECON | [place], [place] | | + + + + + Care Team Providers + +------+ + | Care Psychiatric Specialist Name | Role | Phone | [...] + + | 01/29/ | Office | [facility] | Ulysses Jensen, | Complete tear of | | 2017 | Visit | ORTHOPEDIC SURGERY | [address] | right rotator cuff | | | | [address] | [place] [address] | (Primary Dx); | | | | [place] | [address] | Localized primary | | | | [address] | | osteoarthritis of | | | | [phone] | | carpometacarpal | | | | [...] [place] | | | | | | [address] | | | | | | | | +--------+---------+ + + + | 11/21/ | Office | Cardiology | Yesi, | | | 2019 | Visit | | JOSE ALBERTO Linder [address] | | | | | | [place], | | | | | | [place] [address] | | | | | | [phone] | | | | | | | [...]
--- OUTSIDE RECORDS SUMMARY | ~2019-05-18 | XMS | Encounter Summary ---
Demographics + + + | Address | [address] | | | [place] [address] | + + + | Home Phone [...] Author | [facility] | | | and [place] | + + + | Organization | [facility] | [...] | | | | | [place] [address] | | + + + + + | Hunter Jackson | ECON | [place] | | + + + + + | Wes Jackson | ECON | [place], [place] | | + + + + + | Oziel Jackson | ECON | [place], [place] | | + + + + + Care Team Providers + +------+ + | Care Womens Volleyball Coach Name | Role | Phone | [...] | (Primary Dx) | | | | [address] | [address] | | | | | [phone] | | | +--------+---------+ + + + [...] d strong odors are examples of irritants. [id number] [employer]. [address] [place], [place] [address]. All righ ts reserved. This information is [...] severe itching of the eyes or mouth 2965-1198 [employer]. [address] [place] [address]. All righ ts reserved. This information is [...] nasal congestion and mucus producti on. Some ivdn-zdt-ovutmbm allergy medicines are discussed. Steroid nasal sprays likewise d iscussed. Saltwater gargles. This note was dictated using [employer] voice recognition software. Occasional wrong- word or [...] [place]REET[place] | | | | | | [address] | | | | | | | | +--------+---------+ + + + | 11/21/ | Office | Cardiology | Yesi, | | | 2019 | Visit | | JOSE ALBERTO [address]inder [address] | | | | | | [place], | | | | | | [place] [address] | | | | | | [phone] | | | | | | | | +--------+---------+ + + + documented as of this encounter Visit Diagnoses + + | Diagnosis | + + | Other seasonal allergic rhinitis - Primary | + + documented in this encounter
--- OUTSIDE RECORDS SUMMARY | ~2019-05-18 | XMS | Encounter Summary ---
Demographics + + + | Address | [address] | | | [place] [address] | + + + | Home Phone [...] Author | [facility] | | | and [place] | + + + | Organization | [facility] [...] | | | | | [place] [address] | | + + + + + | Hunter Jackson | ECON | [place] | | + + + + + | Wes Jackson | ECON | [place], [place] | | + + + + + | Oziel Jackson | ECON | [place], [place] | | + + + + + Care Team Providers + +------+ + | Care Cylindrical Mixer Name | Role | Phone | + +------+ + | Rodolfo Cruz MD | PCP | | + +------+ + Encounter Details +--------+ + + + + | Date | Type | Department | Care Team | Description | +--------+ + + + + | 10/25/ | Hospital | [facility] | Martkristinaalina Kristinamart, | | | 2014 | Encounter | MED CTR LABORATORY | [address] [facility] | | | | | [address] | [facility], | | | | | [place], [place] | [place] [address] | | | | | [address] | [phone] | | | | | [phone] | | | +--------+ + + + [...] STREET[place] | | | | | | [address] | | | | | | | | +--------+---------+ + + + | 11/21/ | Office | Cardiology | Yesi, | | | 2019 | Visit | | JOSE ALBERTO Linder [address] | | | | | | [place], | | | | | | [place] [address] | | | | | | [phone] | | | | | | | | +--------+---------+ + + + documented as of this encounter Visit Diagnoses Not on filedocumented in this encounter"
--- OUTSIDE RECORDS SUMMARY | ~2019-05-18 | XMS | Encounter Summary ---
Demographics + + + | Address | [address] | | | [place] [address] | + + + | Home Phone [...] | Author | [facility] | | | and [place] | + + + | Organization | [facility] | [...] | | | | | [place] [address] | | + + + + + | Hunter Jackson | ECON | [place] | | + + + + + | Wes Jackson | ECON | [place], [place] | | + + + + + | Oziel Jackson | ECON | [place], [place] | | + + + + + Care Team Providers + +------+ + | Care Video Control Operator Name | Role | Phone | [...] + + | 04/09/ | Telephone | [facility] | Shahana Rodriguez | Flu Vaccine | | 2011 | | MEDICINE [address] | | | | | [place] | | | | | | [place] [address] | | | | | | [phone] | | | +--------+ + + + [...] | | | | | | [place] [address] | | | | | | [phone] | | | | | | | | +--------+---------+ + + + documented as of this encounter Visit Diagnoses Not on filedocumented in this encounter"
--- OUTSIDE RECORDS SUMMARY | ~2019-05-18 | XMS | Encounter Summary ---
Demographics + + + | Address | [address] | | | [place] [address] | + + + | Home Phone [...] | Author | [facility] | | | and [place] | + + + | Organization | [facility] | [...] | | | | | [place] [address] | | + + + + + | Hunter Jackson | ECON | [place] | | + + + + + | Wes Jackson | ECON | [place], [place] | | + + + + + | Oziel Jackson | ECON | [place], [place] | | + + + + + Care Team Providers + +------+ + | Care Call Centre Supervisor Name | Role | Phone | [...] + + | 10/21/ | Telephone | [facility] | Rodolfo Cruz, | Chest Pain (Call to | | 2013 | | MEDICINE [address] | [address] | pt to verify) | | | | [address] | [place] | | | | | [place] [address] | [address] | | | | | [phone] | | | +--------+ + + + [...] | | | | | | [place] [address] | | | | | | [phone] | | | | | | | | +--------+---------+ + + + documented as of this encounter Visit Diagnoses + + | Diagnosis | + + | Thoracic sprain and strain, initial encounter - Primary | + + documented in this encounter"
--- OUTSIDE RECORDS SUMMARY | ~2019-05-18 | XMS | Encounter Summary ---
Demographics + + + | Address | [address] | | | [place] [address] | + + + | Home Phone [...] | Author | [facility] | | | and [place] | + + + | Organization | [facility] | | | and [place] | + + + | Address | Unknown | + + + | Phone | Unavailable | + + + Support + + + + + | Name | Relationship | Address | Phone | + + + + + | Osmin Jackson | ECON | [address] | | | | | [place] [address] | | + + + + + | Hunter Jackson | ECON | [place] | | + + + + + | Wes Jackson | ECON | [place], [place] | | + + + + + | Oziel Jackson | ECON | [place], [place] | | + + + + + Care Team Providers + +------+ + | Care Digital Sales Director Name | Role | Phone | + +------+ + PCP | Unavailable | + +------+ + Encounter Details +--------+ + + + + | Date | Type | Department | Care Team | Description | +--------+ + + + + | 05/14/ | [facility] | [facility] | Rodolfo Cruz, | | | 2010 | Encounter | MED CTR XRAY [address] | [address] | | | | | [place] | [place], [place] | | | | | [place] [address] | [address] | | | | | [phone] | | | +--------+ + + + [...] | | | | | | [place] [address] | | | | | | [phone] | | | | | | | | +--------+---------+ + + + documented as of this encounter Visit Diagnoses Not on filedocumented in this encounter"
--- OUTSIDE RECORDS SUMMARY | ~2019-05-18 | XMS | Encounter Summary ---
Demographics + + + | Address | [address] | | | [place] [address] | + + + | Home Phone [...] [facility] | | | and [place] | + + + | Organization | [facility] | | | [...] | | | | | [place] [address] | | + + + + + | Hunter Jackson | ECON | [place] | | + + + + + | Wes aJckson | ECON | [place], [place] | | + + + + + | Oziel Jackson | ECON | [place], [place] | | + + + + + Care Team Providers + +------+ + | Care Automatic Embroidery Machine Tender Name | Role | Phone [...] Dx); | | | | [address] | [place], [place] | Rotator cuff | | | | [place] | [address] | syndrome of right | | | | [address] | | shoulder | | | | [phone] | | | +--------+---------+ + + + [...] STREET[place] | | | | | | [address] | | | | | | | | +--------+---------+ + + + | 11/21/ | Office | Cardiology | Yesi, | | | 2019 | Visit | | JOSE ALBERTO Linder [address] | | | | | | [place], | | | | | | [place] [address] | | | | | | [phone] | | | | | | | [...]
--- OUTSIDE RECORDS SUMMARY | ~2019-05-18 | XMS | Encounter Summary ---
Demographics + + + | Address | [address] | | | [place] [address] | + + + | Home Phone [...] Author | [facility] | | | and [place] | + + + | Organization | [facility] | | [...] [address] | | | | | [place] [address] | | + + + + + | Hunter Jackson | ECON | [place] | | + + + + + | Wes Jackson | ECON | [place], [place] | | + + + + + | Oziel Jackson | ECON | [place], [place] | | + + + + + Care Team Providers + +------+ + | Care Vice President Fixed Income Name | Role | Phone | + [...] | JOSE ALBERTO Linder | [address] | | | | | type | [address] | [place], | | | | | Procedures | [place] | [place] | | | | | [place] Nuclear | [place], | [address] | | | | | Stress Test | [place] | Phone: | | | | | (Vasodilator | [address] | [phone] | | | | | ) CHG | Phone: | Fax: | | | | | MYOCARDIAL | [phone] | [phone] | | | | | SPECT | Fax: | | | | | | MULTIPLE | [phone] | | | | | | STUDIES [place] | | | | | | | CV STRS TST | | | | | | | XERS&/OR RX | | | | | | | CONT ECG W/O | | | | | | | I&R [place] | | | | | | | [...] [address] | | | | | [place], | [place], | | | | | [place] [address] | [place] [address] | | | | | [phone] | [phone] | | | | | | | [...] STREETER | | | | | | [address] | | | | | | | | +--------+---------+ + + + | 11/21/ | Office | Cardiology | Yesi, | | | 2019 | Visit | | JOSE ALBERTO Linder [address] | | | | | | [place] | | | | | | [place] [address] | | | | | | [phone] | | | | | | | [...] 78 %. Signed by: Irina Simms MD [facility] | | | 10/16/2017, 14:56 | | + + + + + --+ | Narrative | Performed At | + + --+ | | [facility] | | NUCLEAR MEDICINE STRESS TEST REPORT Patient Name: Soumya Jackson | | | Study Date: 10/16/2017 Primary Care Provider: FLORA Morgan MRN: | | | [id number] : 1935 Age: 82 y.o. Gender: female [...]
--- OUTSIDE RECORDS SUMMARY | ~2019-05-18 | XMS | Encounter Summary ---
Demographics + + + | Address | [address] | | | [place] [address] | + + + | Home Phone [...] + | Author | [facility] | | | and [place] | + + + | Organization | [facility] | | | and [place] | + + + | Address | Unknown | + + + | Phone | Unavailable | + + + Support + + + + + | Name | Relationship | Address | Phone | + + + + + | Osmin Jackson | ECON | [address] | | | | | [place] [address] | | + + + + + | Hunter Jackson | ECON | [place] | | + + + + + | Wes Jackson | ECON | [place], [place] | | + + + + + | Oziel Jackson | ECON | [place], [place] | | + + + + + Care Team Providers + +------+ + | Care Informatics Application Analyst Name | Role | Phone | [...] | 09/10/ | Telephone | [facility] | Yesi, | Lab Order (Patient | | 2018 | | CARDIOLOGY [address] | JOSE ALBERTO Linder [address] | is due for fasting | | | | [place], | [place], | labs) | | | | [place] [address] | [place] [address] | | | | | [phone] | [phone] | | | | | | | [...] STREETER | | | | | | [address] | | | | | | | | +--------+---------+ + + + | 11/21/ | Office | Cardiology | Yesi, | | | 2020 | Visit | | JOSE ALBERTO Linder [address] | | | | | | [place], | | | | | | [place] [address] | | | | | | [phone] | | | | | | | [...] involving | | | | | | cabazon coronary | | | | | | artery of cabazon | | | | | | heart [...] involving | | | | | | cabazon coronary | | | | | | artery of cabazon | | | | | | heart [...] involving | | | | | | cabazon coronary | | | | | | artery of cabazon | | | | | | heart [...] + + | 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
--- OUTSIDE RECORDS SUMMARY | ~2019-05-18 | XMS | Encounter Summary ---
Demographics + + + | Address | [address] | | | [place] [address] | + + + | Home Phone [...] | Author | [facility] | | | and [place] | + + + | Organization | [facility] | | | and [...] | | | | | [place] [address] | | + + + + + | Hunter Jakcson | ECON | [place] | | + + + + + | Wes Jackson | ECON | [place], [place] | | + + + + + | Oziel Jackson | ECON | [place], [place] | | + + + + + Care Team Providers + +------+ + | Care Supervisor Cooler Service Name | Role | Phone | + [...] | Back pain | | [address] | | | | | Hypothyroidi | | [place], | | | | | sm | | [place] | | | | | Hypertension | | [address] | | | | | Asthma GI | | Phone: | | | | | bleed | | [phone] | | | | | Troponin | | Fax: | | | | | level | | [phone] | | | | | elevated | [...] + + | 11/04/ | Surgery | [facility] | Samm Pandya, | EGD IP 449 | | 2013 | | MED CTR MP INTRA OP | MD [address] | | | | | [address] | [address] [place], | | | | | [place] | [place] [address] | | | | | [address] | [phone] | | | | | [phone] | | | +--------+---------+ + + + [...] might be different fro m the original. [facility] DISCHARGE SUMMARY Pt. Name/Age/: Soumya Jackson 78 [...] problems to display. 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 [DISCONTINUED] [facility] GARLIC OIL PO CAPS Take 1250 mg by mouth daily. [DISCONTINUED] diclofenac (VOLTAREN) 75 mg EC tablet TAKE ONE TABLET BY MOUTH TWICE A D AY 180 tablet 1 [DISCONTINUED] Jmyqtxrxkwb-Bejkkrwxo-Ztu C-Mn ([facility] GLUCOSAMINE-CHONDROITIN) TABS Take 1 tablet by mouth 2 times daily. [DISCONTINUED] KRILL OIL 1000 MG CAPS Take 1,000 mg by mouth Daily. [DISCONTINUED] metaxalone (SKELAXIN) 800 mg tablet Take 800 mg by mouth 3 times daily. 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 Got total 4 PRBC Troponin I above reference range EKG without ischemia. Mild troponin leak but well below threshold for GA. Echo EF 63%, no sig change versus [...] Mamogram and UPEP and Stress Test with door liner OK to restart baby ASA NOT restart [...] your friday appt) Contact information: [address] [facility] [phone] Follow up with JOSE ALBERTO Marcelo. (Have Dr Cruz arrange an appt to see her in about a month from now) Contact information: [place] [id number] Condition: Patient being discharged with condition improved Dr Pandya recommends double dose of PPI for 1 month then single dose Thus Prilosec 20 mg bid X 1 month then can lower to 20 mg daily Diet: Regular Greater than 30 minutes were spent on discharge and coordination of post-hospital care. Electronically signed by: Yoel Carranza MD, 11/05/2013 13:26 [facility] Portions of this chart may have been created with Armor5 voice recognition software. Occasi onal wrong-word or [...] might be different fro m the original. [facility] PROGRESS NOTE Patient: Soumya Jackson : 1935: Age: 78 y.o. MedRec: [id number] Admission date: 11/03/2013 Hospital day # : [...] -- No results found for this basename: PHART:3,PO2ART:3,NJH1IWO:3,AUQ3XZS:3,BEART:3,T0BBKPCF:3 in the last 168 hours No results found for this basename: SPECSOURCE:3,PHPOCB:3,XYXDR6WP:3,BNAC3PD:3,HCO3:3,TCO2: 3,BEART:3,BE:3,ZLXR7KOM:3 in the last 168 hours Point of [...] troponin leak but well below threshold for GA. Echo EF 63%, no sig change versus [...] Mamogram and UPEP and Stress Test with door liner OK to restart baby ASA NOT restart Voltaren Advise appt with Merissa in GI clinic in about 1 month. Yoel Carranza MD 11/05/2013 13:14 [facility] Dot phrase reference: VSHOSP (VS in table, last 24 hours) MEYLAB (various labs to pull in) DT (date and time) LABRCNTIP[K:3,Na:3 (last 3 sets of labs using potassium and sodium as examples) HGB HCT PLT INR GLU POCGLU Na K BUN CREA, CALCIUM TROPONINI BNP DIGOXIN DDIMERQUANT Portions of this chart may have been created with Armor5 voice recognition software. Occasi onal wrong-word or [...] 1 unit of PRBC transfused without reaction. Chappell 1 tab given for lower back pain w ith good relief of pain. No active bleeding noted. Rodolfo Nicholas RRT - 11/04/2013 9:15 AM PDTPt not in roomEle ctronically signed by Rodolfo Montes RRT at 11/04/2013 2:44 PM Yoel Plaza MD - 7:17 AM PDT [facility] PROGRESS NOTE Patient: Soumya Jackson : 1935: Age: 78 y.o. MedRec: [id number] Admission date: 11/03/2013 Hospital day # : [...] -- No results found for this basename: PHART:3,PO2ART:3,KTN2UYI:3,JJQ6QEN:3,BEART:3,F6VNOAAW:3 in the last 168 hours No results found for this basename: SPECSOURCE:3,PHPOCB:3,DZHBD9AA:3,OJBK5DR:3,HCO3:3,TCO2: 3,BEART:3,BE:3,KICP7LXT:3 in the last 168 hours Point of [...] troponin leak but well below threshold for GA. Echo EF 63%, no sig change versus [...] OK Bone Scan tomorrow (maybe) trace from [place] Discussed mild trop leak and consideration for outpatient Currently wearing her SCDs Dr Pandya said I could start low dose ASA and I told patient will start tomorrow (I will mary it labs though) Yoel Carranza MD 11/04/2013 7:17 [facility] Dot phrase reference: VSHOSP (VS in table, last 24 hours) MEYLAB (various labs to pull in) DT (date and time) LABRCNTIP[K:3,Na:3 (last 3 sets of labs using potassium and sodium as examples) HGB HCT PLT INR GLU POCGLU Na K BUN CREA, CALCIUM TROPONINI BNP DIGOXIN DDIMERQUANT Portions of this chart may have been created with Armor5 voice recognition software. Occasi onal wrong-word or [...] | | | | | | [place] [address] | | | | | | [phone] | | | | | | | [...] + | MISCELLANEOUS LAB | | | [phone] | + +---------+ + + | MISCELANIOUS LAB | | | [phone] | + +---------+ + + CBC with [...] + | [facility] | [address] | [place] | [phone] | | [facility] | | [address] | | | - LABORATORY | | | | + + + + + | [facility] | [address] | [place] | | | [facility] | | [address] | | | - LABORATORY | | [...] | 0.64 | 0.60 - 1.30 | [facility] | | | | | mg/dL | [facility] | | | | | | MEDICAL | | | | | | CENTER - | | | | | | LABORATORY | | + + + + + + | eGFR if not | >60Comment: GLOMERULAR | >=60 | [facility] | | | | FILTRATION | mL/min/1.73m2 | [facility] | | | TAIWANESE | RATE,ESTIMATED | | MEDICAL | | | | mL/min/1.89n8Bvhg than | | CENTER - | | [...] | 8.7 | 8.3 - 10.5 | [facility] | | | | | mg/dL | [facility] | | | | | | MEDICAL | | | | | | CENTER - | | | | | | LABORATORY | | + + + + + + | BUN/Creatin | 9.4 | | [facility] | | | ine Ratio | | | [facility] | | | | | | MEDICAL [...] [address] | [place] | [phone] | | [facility] | | [address] | | | - LABORATORY | | | | + + + + + | [facility] | [address] | [place] | | | [facility] | | [address] | | | - LABORATORY | | [...] + + + | UNIT # | [id number] | | [facility] | | | | [...] St | [place] | | | [facility] | | [address] | | | - BLOOD BANK | [...] + | [facility] | [address] | [place], [place] | [phone] | | [facility] | | [address] | | | - LABORATORY | | | | + + + + + | [facility] | [address] | [place], [place] | | | [facility] | | [address] | | | - LABORATORY | | [...] + + + | UNIT # | [id number] | | [facility] | | | | [...] St | [place] | | | [facility] | | [address] | | | - BLOOD BANK | | | | + + + + + EGD (11/04/2013 8:39 AM PDT) + + | Specimen | + + | | + + + + -+ | Narrative | Performed At | + + -+ | | [facility] | | GastroenterologyPatient Name: Soumya Grimes Date: 11/04/2013 8:39 | [facility] | | AMN: [id number] #: [id number] of : 8Admit | | | Type: InpatientAge: 78Room: [facility] 02Gender: FemaleNote Status: | | [...] 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 Mental Status [...] | 0Note Initiated On: 11/04/2013 8:39 AM [facility] | | | [facility], [address] [place] [address] | | | [phone] | | | - Non-bleeding erosive gastropathy. [...] On: 11/04/2013 8:39 AM | | | [facility], [address], [place] | | | [address] | | + + -+ + + [...] + + + | UNIT # | [id number] | | [facility] | | | | [...] St | [place] | | | [facility] | | [address] | | | - BLOOD BANK | [...] + | [facility] | [address] | [place] | [phone] | | [facility] | | [address] | | | - LABORATORY | | | | + + + + + | [facility] | [address] | [place] | | | [facility] | | [address] | | | - LABORATORY | | [...] [address] | [place] | [phone] | | [facility] | | [address] | | | - LABORATORY | | | | + + + + + | [facility] | [address] | [place] | | | [facility] | | [address] | | | - LABORATORY | | [...] + | [facility] | [address] | [place] | [phone] | | [facility] | | [address] | | | - LABORATORY | | | | + + + + + | [facility] | [address] | [place] | | | [facility] | | [address] | | | - LABORATORY | | [...] | | | FILTRATION | mL/min/1.73m2 | [facility] | | | TAIWANESE | RATE,ESTIMATED | | MEDICAL | | | | mL/min/1.80i2Gguj than | | CENTER - | | [...] [address] | [place] | [phone] | | [facility] | | [address] | | | - LABORATORY | | | | + + + + + | [facility] | [address] | [place] | | | [facility] | | [address] | | | - LABORATORY | | [...] + + + | UNIT # | [id number] | | [facility] | | | | [...] St | [place] | | | [facility] | | [address] | | | - BLOOD BANK | [...] + | [facility] | [address] | [place], [place] | [phone] | | [facility] | | [address] | | | - LABORATORY | | | | + + + + + | [facility] | [address] | [place], [place] | | | [facility] | | [address] | | | - LABORATORY | | [...] | | | | | | [employer] | | | | | [address] | [place] | [phone] | | [facility] | | [address] | | | - LABORATORY | | | | + + + + + | [facility] | [address] | [place] | | | [facility] | | [address] | | | - LABORATORY | | [...] [address] | [place] | [phone] | | [facility] | | [address] | | | - LABORATORY | | | | + + + + + | [facility] | [address] | [place] | | | [facility] | | [address] | | | - LABORATORY | | [...] | | | | | | [employer] | | | | | [...] + + | Performing | Address | City/State[facility] | Phone Number | | Organization | | | | + + + + + | [facility] | [address] | [place] | [phone] | | [facility] | | [address] | | | - LABORATORY | | | | + + + + + | [facility] | [address] | [place] | | | [facility] | | [address] | | | - LABORATORY | | [...] [address] | [place] | [phone] | | [facility] | | [address] | | | - LABORATORY | | | | + + + + + | [facility] | [address] | [place] | | | [facility] | | [address] | | | - LABORATORY | | [...] + | [facility] | [address] | [place] | [phone] | | [facility] | | [address] | | | - LABORATORY | | | | + + + + + | [facility] | [address] | [place] | | | [facility] | | [address] | | | - LABORATORY | | | | + + + + + Troponin I (11/03/2013 1:15 PM PDT) + + + + + + | Component | Value | Ref Range | Performed | Pathologist | | | | | At | Signature | + + + + + + | Troponin I | 0.07 (H)Comment: | <0.06 ng/mL | [facility] | | | | Reference | | [...] | | | | | | [employer] | | | | | [...] + | [facility] | [address] | [place] | [phone] | | [facility] | | [address] | | | - LABORATORY | | | | + + + + + | [facility] | [address] | [place] | | | [facility] | | [address] | | | - LABORATORY | | [...] + | [facility] | [address] | [place], [place] | [phone] | | [facility] | | [address] | | | - LABORATORY | | | | + + + + + | [facility] | [address] | [place], [place] | | | [facility] | | [address] | | | - LABORATORY | | | | + + + + + ECHO Complete (11/03/2013 12:00 PM PDT) + + | Specimen | + + | | + + + + + | Narrative | Performed At | + + + | [facility] ECHOCARDIOGRAM REPORT | | | STUDY DATE: [...] Carito Maher MD PhD | | | [facility] 11/03/2013 12:17 Performance Reporter: Merlin Dolan, | | | RDMS | | + + + + + | Procedure Note | + + | Ric Maher MD - 11/03/2013 6:59 PM [facility] | | CENTERECHOCARDIOGRAM REPORTSTUDY DATE: 11/03/2013PATIENT NAME: Soumya Daniels: | | 1935MRN: [id number]: Rodolfo Cruz [facility]ICAL H[facility]ORY/DIAGNOSIS: Elevated | [...] PP mmHgLA volume: 54 mLLA index: 28 mL/v9Haqemw Inflow DT: | | 284 msIVRT: 88 msValsalva: Not neededPWDTI S wave: 8.0 cm/sPWDTI E wave: 6.8 | | cm/sPWDTI A wave: 14.8 cm/sE/A Ratio: 0.46E/E Ratio: 19.52Signed by: Carito Solorio | | MD Nika PhD FACC 11/03/2013 12:17 Performance Reporter: Merlin Dolan RDMS | |Tricuspid valve: normal [...] | |Signed by: Carito Maher MD PhD [facility] | | 11/03/2013 12:17 | | | | | |Performance Reporter: Merlin Dolan RDMS | + + Protein [...] + | [facility] | [address] | [place], [place] | [phone] | | [facility] | | [address] | | | - LABORATORY | | | | + + + + + | [facility] | [address] | [place], [place] | | | [facility] | | [address] | | | - LABORATORY | | [...] | 1.015 | | | | | [place], | | | | | | UA, [...] + | [facility] | [address] | [place], [place] | | | [facility] | | [address] | | | - BLOOD BANK | [...] + | MISCELLANEOUS LAB | | | [phone] | + +---------+ + + | MISCELANIOUS LAB | | | [phone] | + +---------+ + + Troponin I [...] | | | | | | [employer] | | | | | [...] + + | Performing | Address | City/State/[facility] | Phone Number | | Organization | | | | + + + + + | [facility] | [address] | [place] | [phone] | | [facility] | | [address] | | | - LABORATORY | | | | + + + + + | [facility] | [address] | [place] | | | [facility] | | [address] | | | - LABORATORY | | [...] mL/min/1.73m2 | [facility] | | | [place] | RATE,ESTIMATED | | MEDICAL | | | | mL/min/1.29f7Kcuc than | | CENTER - | | [address] | [place] | [phone] | | [facility] | | [address] | | | - LABORATORY | | | | + + + + + | [facility] | [address] | [place] | | | [facility] | | [address] | | | - LABORATORY | | [...] | + + + + + | [facility] | [address] | [place], [place] | [phone] | | [facility] | | [address] | | | - LABORATORY | | | | + + + + + | [facility] | [address] | [place], [place] | | | [facility] | | [address] | | | - LABORATORY | | | | + + + + + documented in this encounter Visit Diagnoses + + | Diagnosis | + + | GI bleed Hemorrhage of gastrointestinal tract, unspecified | + + documented in this encounter
--- OUTSIDE RECORDS SUMMARY | ~2019-05-18 | XMS | Encounter Summary ---
Demographics + + + | Address | [address] | | | [place] [address] | + + + | Home Phone [...] | Author | [facility] | | | and [place] | + + + | Organization | [facility] | [...] [place] | | | | | [place] [address] | | + + + + + | Hunter Jackson | ECON | [place] | | + + + + + | Wes Jackson | ECON | [place], [place] | | + + + + + | Oziel Jackson | ECON | [place], [place] | | + + + + + Care Team Providers + +------+ + | Care Remelt Worker Name | Role | Phone | + +------+ + | eKllie Gunderson | PCP | | + +------+ [...] Visit | ORTHOPEDIC SURGERY | MD [address] [facility] | carpometacarpal | | | | [address] [facility] | [facility] [place] | ([facility]) joint of right | | | | [place], [place] | [address] | thumb (Primary Dx); | | | | [address] | | Rotator cuff tear | | | | [phone] | | arthropathy of right | | [...] [place] | | | | | | [address] | | | | | | | | +--------+---------+ + + + | 11/21/ | Office | Cardiology | Yesi, | | | 2019 | Visit | | JOSE ALBERTO Linder [address] | | | | | [place], | | | | | | [place] [address] | | | | | | [phone] | | | | | | | [...]
--- OUTSIDE RECORDS SUMMARY | ~2019-05-18 | XMS | Encounter Summary ---
Demographics + + + | Address | [address] | | | [place] [address] | + + + | Home Phone [...] Author | [facility] | | | and [place] | + + + | Organization | [facility] [...] | | | | | [place] [address] | | + + + + + | Hunter Jackson | ECON | [place] | | + + + + + | Wes Jackson | ECON | [place], [place] | | + + + + + | Oziel Jackson | ECON | [place], [place] | | + + + + + Care Team Providers + +------+ + | Care Warehouse Team Leader Name | Role | Phone | + +------+ + PCP | Unavailable | + +------+ + Encounter Details +--------+ + + + + | Date | Type | Department | Care Team | Description | +--------+ + + + + | 07/03/ | Hospital | [facility] | | | | 2010 | Encounter | MED CTR XRAY [address] | | | | | | [address] [place] | | | | | | [place] [address] | | | | | | [phone] | | | +--------+ + + + [...] STREETER | | | | | | [address] | | | | | | | | +--------+---------+ + + + | 11/21/ | Office | Cardiology | Yesi, | | | 2019 | Visit | | JOSE ALBERTO [address] | | | | | | [place], | | | | | | [place] [address] | | | | | | [phone] | | | | | | | | +--------+---------+ + + + documented as of this encounter Visit Diagnoses Not on filedocumented in this encounter"
--- OUTSIDE RECORDS SUMMARY | ~2019-05-18 | XMS | Encounter Summary ---
Demographics + + + | Address | [address] | | | [place] [address] | + + + | Home Phone [...] | [facility] | | | and [place] | + + + | Organization | [facility] | | [...] SWA[place] | | | | | [place] [address] | | + + + + + | Hunter Jackson | ECON | [place] | | + + + + + | Wes Jackosn | ECON | [place], [place] | | + + + + + | Oziel Jackson | ECON | [place], [place] | | + + + + + Care Team Providers + +------+ + | Care Communications Attendant Name | Role | Phone | [...] | [address] | [place] [address] | [address] Phone: | | | | | Procedures | Phone: | [phone] | | | | | NEW PATIENT | [phone] | Fax: | | | | | | Fax: | [phone] | | | | | | [phone] | | +--------+--------+ + + + + Encounter Details +--------+---------+ + + + | Date | Type | Department | Care Team | Description | +--------+---------+ + + + | 06/13/ | Office | [facility] | Braulio León | Psychophysiologic | | 2018 | Visit | SLEEP DISORDER [address] | MD Allison [address] | insomnia | | | | [address] | [facility] | | | | | [place] [address] | [place] [address] | | | | | [phone] | [phone] | | | | | | | [...] differen t from the original. Mary Brandt [facility] [place] [address] Ref: Kellie Gunderson PA CC: Chief Complaint [...] f peptic ulcer disease. The patient's records ([facility] EMR and Mary Beth Gunderson's note [...] back pain (08/24/2014); Cl otting disorder ([facility]) (2013); COPD (chronic obstructive pulmonary disease) ([facility]); DDD (degen erative disc disease), cervical (07/25/2016); DDD (degenerative disc disease), lumbar ( 015); DJD (degenerative joint disease) (07/08/2013); Encounter for blood transfusion (November 28); Environmental allergies; Essential hypertension; Facet arthritis of lumbar region ([facility]) (08/24/2014); Foraminal stenosis of cervical region (07/25/2016); Fracture of foot (approx 29 01); GERD (04/17/2010); Heart murmur; Hep B complicating ; Hepatitis A (1967); Herpe s zoster (05/03/2011); High cholesterol; Hyperplastic colon polyp (03/28/10); Hypertension; Hypothyroidism; Lactose intolerance; Miscarriage; Mononucleosis; Osteoporosis; PUD (peptic u lcer disease) (11/08/2013); Pulmonary nodules (12/08/2013); Spondylosis, cervical (08/30/2010); Stenosis of cervical spine (07/25/2016); Stroke ([facility]) (Apr 2010); TIA (05/08/2010); Tinea co rporis (01/31/2015); UGIB (upper gastrointestinal bleed) (11/14/2013); Valvular heart disease ( 05/23/2010); and Vertigo (09/03/2012). has a past surgical history that includes Colonoscopy (05/2002; 03/28/10); Removal lower l eft nodules (2004); Foot fracture surgery (Left, 2004); Tonsillectomy and adenoidectomy (195 6); Upper gastrointestinal endoscopy (11/15/2013); Upper gastrointestinal endoscopy (11/04/2013 ); Hemorrhoid surgery (5207-4842); Thyroidectomy; Cardiac catheterization (N/A, 10/16/2016); a nd [...] CV LHC; Surgeon: Irina Simms MD; Location: [facility] CV LAB COLONOSCOPY 05/2002; 03/28/10 next due 03/2020 CORONARY ARTERY BYPASS GRAFT N/A 11/01/2016 Procedure: CABG X 4-5, EVH, AHMET; Surgeon: Christina Loo MD; [facility] FOOT FRACTURE SURGERY Left 2005 HEMORRHOID SURGERY 0805-4149 Removal lower left nodules 2004 THYROIDECTOMY TONSILLECTOMY AND ADENOIDECTOMY 1955 UPPER GASTROINTESTINAL ENDOSCOPY 11/15/2013 EGD * IP RM: 428 * ; Laterality: N/A; Surgeon: Lauri Garrison MD; Location: [facility] MEDICAL PROCEDURE UNIT UPPER GASTROINTESTINAL ENDOSCOPY 11/04/2013 EGD IP 449; Laterality: N/A; Surgeon: Samm Pandya MD; Location: [facility] MEDICAL P ROCEDURE UNIT Family Medical History: [...] during the day Living situation:Alone Born in [facility] since 1965 Marital status: Children: 6, 5 living, 10 grandchildren 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 and [...] Review: The score of 1 on the [place] Sleepiness scale suggests minimal brian gnized excessive [...] cervical Cervical radiculopathy Coronary artery disease involving [place] coronary artery of [place] heart with unstable angina pectoris Stress hyperglycemia [...] Insomnia Severity Index Insomnia Severity Index 22 White[place] Sleepiness Scale Sitting and reading 0 Watching [...] | | | | | | [place] [address] | | | | | | [phone] | | | | | | | | +--------+---------+ + + + documented as of this encounter Visit Diagnoses + + | Diagnosis | + + | Psychophysiologic insomnia Persistent disorder of initiating or maintaining sleep | + + documented in this encounter
--- OUTSIDE RECORDS SUMMARY | ~2019-05-18 | XMS | Encounter Summary ---
Demographics + + + | Address | [address] | | | [place] [address] | + + + | Home Phone [...] | [facility] | | | and [place] | + + + | Organization | [facility] | | [...] S[place] | | | | | [place] [address] | | + + + + + | Hunter Jackson | ECON | [place] | | + + + + + | Wes Jackson | ECON | [place], [place] | | + + + + + | Oziel Jackson | ECON | [place], [place] | | + + + + + Care Team Providers + +------+ + | Care Broom Machine Operator Name | Role | Phone | + +------+ + | Gunderson, Kellie PA | PCP | | + +------+ + Encounter Details +--------+---------+ + + + | Date | Type | Department | Care Team | Description | +--------+---------+ + + + | 10/16/ | Office | [facility] | [place], | Aortic valve | | 2018 | Visit | CARDIOLOGY [address] | JOSE ALBERTO [address]inder [address] | insufficiency, | | | | [place], | [place], | etiology of cardiac | | | | [place] [address] | [place] [address] | valve disease | | | | [phone] | [phone] | unspecified (Primary | | | | | | Dx); Coronary | | | | | | artery disease | | | | | | involving [place] | | | | | | coronary artery of | | | | | | [place] heart with | | | | | [...] has a sleep apnea study scheduled in [place] next month MEDICAL, SURGICAL, AND PERSONAL HISTORY Past Medical, Surgical, Family, and Social History are reviewed in [facility]. CURRENT PROBLEMS Patient Active Problem List [...] cervical Cervical radiculopathy Coronary artery disease involving [place] coronary artery of [place] heart with unstable angina pectoris Stress hyperglycemia [...] reviewed during visit today primarily from [facility]: LIPID Lab Results Component Value Date [...] 336 07/21/2017 I reviewed records from [facility] for Stress test results on 10/29 [...] 1. Coronary artery disease A. Seen at [facility] they had EKG and sent her home stating it was GERD B. Seen in the emergency room at [facility] for chest pain. Sh e was schedule [...] central AI, no , trace TR, trace NM, normal aorta other than mild calcification at [...] She is in a class I-II of [place] [employer] functional class.on physical examination the [...] this chart may have been created with [employer] voice recognition software. Occasi onal wrong-word or [...] STREETER | | | | | | [address] | | | | | | | | +--------+---------+ + + + | 11/21/ | Office | Cardiology | Yesi, | | | 2019 | Visit | | JOSE ALBERTO [address]inder [address] | | | | | | [place] | | | | | | [place] [address] | | | | | | [phone] | | | | | | | [...] involving | | | | | | [place] coronary | | | | | | artery of [place] | | | | | | heart with unstable | | | | | | angina pectoris | | | | | | ([facility]) Essential | | | | | | hypertension with | | | | | | goal blood pressure | | | | | | less than 130/80 | | | | | | Inflammation of | | | | | | blood vessels ([facility]) | | | | | [...] MD | | | | | | ([id number]) on 10/16/2017 | | | | | [...] + + | 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
--- OUTSIDE RECORDS SUMMARY | ~2019-05-18 | XMS | Encounter Summary ---
Demographics + + + | Address | [address] | | | [place] [address] | + + + | Home Phone [...] | [facility] | | | and [place] | + + + | Organization | [facility] | | [...] | | | | | [place] [address] | | + + + + + | Hunter Jackson | ECON | [place] | | + + + + + | Wes Jackson | ECON | [place], [place] | | + + + + + | Oziel Jackson | ECON | [place], [place] | | + + + + + Care Team Providers + +------+ + | Care Legal Word Processor Name | Role | Phone | [...] + + | 03/16/ | Telephone | [facility] | Rodolfo Cruz, | Results | | 2014 | | MEDICINE [facility] [address] | MD [address] | | | | | [place] | [place] [address] | | | | | [place] [address] | [address] | | | | | [phone] | | | +--------+ + + + [...] | | | | | | [place] [address] | | | | | | [phone] | | | | | | | | +--------+---------+ + + + documented as of this encounter Visit Diagnoses Not on filedocumented in this encounter"
--- OUTSIDE RECORDS SUMMARY | ~2019-05-18 | XMS | Encounter Summary ---
Demographics + + + | Address | [address] | | | [place] [address] | + + + | Home Phone [...] | Author | [facility] | | | and [place] | + + + | Organization | [facility] | [...] | | | | | [place] [address] | | + + + + + | Hunter Jackson | ECON | [place] | | + + + + + | Wes Jackson | ECON | [place], [place] | | + + + + + | Oziel Jackson | ECON | [place], [place] | | + + + + + Care Team Providers + +------+ + | Care Crown Attacher Name | Role | Phone | + +------+ + | Rodolfo Cruz MD | PCP | | + +------+ + Reason for Visit + + + | Reason | Comments | + + + | Labs Only | [facility] called to [facility] in [place] | + + + Encounter Details +--------+ [...] in | | | | [place] [address] | [address] | Mika) | | | | [phone] | | | +--------+ + + + [...] STREETER | | | | | | [address] | | | | | | | | +--------+---------+ + + + | 11/21/ | Office | Cardiology | Yesi, | | | 2019 | Visit | | JOSE ALBERTO [address] | | | | | | [place], | | | | | | [place] [address] | | | | | | [phone] | | | | | | | | +--------+---------+ + + + documented as of this encounter Visit Diagnoses Not on filedocumented in this encounter"
--- OUTSIDE RECORDS SUMMARY | ~2019-05-18 | XMS | Encounter Summary ---
Demographics + + + | Address | [address] | | | [place] [address] | + + + | Home Phone [...] | [facility] | | | and [place] | + + + | Organization | [facility] | [...] [place] | | | | | [place] [address] | | + + + + + | Hunter Jackson | ECON | [place] | | + + + + + | Wes Jackson | ECON | [place], [place] | | + + + + + | Oziel Jackson | ECON | [place], [place] | | + + + + + Care Team Providers + +------+ + | Care Apprenticeship Training Representative Name | Role | Phone | [...] | JOSE ALBERTO Linder | [address] [place] | | | | | type | [address] | [place], | | | | | Procedures | [place] | [place] | | | | | [place] Nuclear | [place], | [address] | | | | | Stress Test | [place] | Phone: | | | | | (Vasodilator | [address] | [phone] | | | | | ) CHG | Phone: | Fax: | | | | | MYOCARDIAL | [phone] | [phone] | | | | | SPECT | Fax: | | | | | | MULTIPLE | [phone] | | | | | | STUDIES [place] | | | | | | | CV STRS TST | | | | | | | XERS&/OR RX | | | | | | | CONT ECG W/O | | | | | | | I&R VT | | | | | | | [...] + | 10/02/ | Telephone | [facility] | [place]i, | Blood Pressure | | 2018 | | CARDIOLOGY [address] | JOSE ALBERTO [address]inder [address] | | | | | [place], | [place], | | | | | [place] [address] | [place] [address] | | | | | [phone] | [phone] | | | | | | | [...] STREETER | | | | | | [address] | | | | | | | | +--------+---------+ + + + | 11/21/ | Office | Cardiology | Yesi, | | | 2019 | Visit | | JOSE ALBERTO [address] | | | | | | [place] | | | | | | [place] [address] | | | | | | [phone] | | | | | | | [...] 76 %. Signed by: Irina Simms MD [facility] | | | 10/16/2017, 14:56 | | + + + + + --+ | Narrative | Performed At | + + --+ | | [facility] | | NUCLEAR MEDICINE STRESS TEST REPORT Patient Name: Soumya Jackson | | | Study Date: 10/16/2017 Primary Care Provider: FLORA Morgan MRN: | | | [id number] : 1935 Age: 82 y.o. Gender: female [...]
--- OUTSIDE RECORDS SUMMARY | ~2019-05-18 | XMS | Encounter Summary ---
Demographics + + + | Address | [address] | | | [place] [address] | + + + | Home Phone [...] + | Author | [facility] | | | and [place] | + + + | Organization | [facility] | [...] | | | | | [place] [address] | | + + + + + | Hunter Jackson | ECON | [place] | | + + + + + | Wes Jackson | ECON | [place], [place] | | + + + + + | Oziel Jackson | ECON | [place], [place] | | + + + + + Care Team Providers + +------+ + | Care Pipeman Name | Role | Phone | + [...] | [address] | [place] | Dx); [facility] arthritis | | | | [place] | [address] | | | | | [address] | | | | | | [phone] | | | +--------+---------+ + + + [...] | | | | | | [place] [address] | | | | | | [phone] | | | | | | | [...]
--- OUTSIDE RECORDS SUMMARY | ~2019-05-18 | XMS | Encounter Summary ---
Demographics + + + | Address | [address] | | | [place] [address] | + + + | Home Phone [...] Author | [facility] | | | and [place] | + + + | Organization | [facility] | | [...] | | | | | [place] [address] | | + + + + + | Hunter Jackson | ECON | [place] | | + + + + + | Wes Jackson | ECON | [place], [place] | | + + + + + | Oziel Jackson | ECON | [place], [place] | | + + + + + Care Team Providers + +------+ + | Care Washing Machine Loader Name | Role | Phone | + +------+ + | Rodolfo Cruz MD | PCP | | + +------+ + Encounter Details +--------+ + + + + | Date | Type | Department | Care Team | Description | +--------+ + + + + | 08/05/ | Orders Only | [facility] | Rodolfo Cruz, | History of hepatitis | | 2015 | | MEDICINE [address] [place] [address] | MD [address] | (Primary Dx) | | | | [facility] | [place], [place] | | | | | [place] [address] | [address] | | | | | [phone] | | | +--------+ + + + [...] 2019 | Visit | | JOSE ALBERTO Lidner [address] | | | | | | [place], | | | | | | [place] [address] | | | | | | [phone] | | | | | | | | +--------+---------+ + + + documented as of this encounter Results Hepatitis Panel, Chronic (10/25/2014 3:05 PM PDT) [...] | [facility] | | | | Ftkiou25.0 or greater | | | | | [...] | | | Ab | Testing Performed: [facility], | | [facility] | | | | [address] | | | | | | [place] [address] | | | | + + + + + + | Hepatitis | See CommentsComment: No | | REFERENCE | | | Interpretat | serologic evidence of | | [facility] | | | ion: | HAV, HBV or HCV | | | | | | infection.Testing | | | | | | Performed: [facility], [address] | | | | | | [address], [place] | | | | | | [address] | | | | + + + + + + + + | Specimen | + + | Blood specimen | | (specimen) | + + + + + + + | Performing | Address | City/State/Zipcode | Phone Number | | Organization | | | | + + + + + | [facility] | [address] | [place] [address] | [phone] | + + + + + documented in this encounter Visit Diagnoses + + | Diagnosis | + + | History of hepatitis - Primary Personal history of other infectious and parasitic | | disease | + + documented in this encounter"
--- OUTSIDE RECORDS SUMMARY | ~2019-05-18 | XMS | Encounter Summary ---
Demographics + + + | Address | [address] | | | [place] [address] | + + + | Home Phone [...] | Author | [facility] | | | and [place] | + + + | Organization | [facility] | | | [...] [place] | | | | | [place] [address] | | + + + + + | Hunter Jackson | ECON | [place] | | + + + + + | Wes Jackson | ECON | [place], [place] | | + + + + + | Oziel Jackson | ECON | [place], [place] | | + + + + + Care Team Providers + +------+ + | Care Art Class Model Name | Role | Phone | [...] W | | | | | [place], | [place], | | | | | [place] [address] | [place] [address] | | | | | [phone] | [phone] | | | | | | | [...] STREETER | | | | | | [address] | | | | | | | | +--------+---------+ + + + | 11/21/ | Office | Cardiology | Yesi, | | | 2019 | Visit | | JOSE ALBERTO [address] | | | | | | [place] | | | | | | [place] [address] | | | | | | [phone] | | | | | | | | +--------+---------+ + + + documented as of this encounter Visit Diagnoses Not on filedocumented in this encounter"
--- OUTSIDE RECORDS SUMMARY | ~2019-05-18 | XMS | Encounter Summary ---
Demographics + + + | Address | [address] | | | [place] [address] | + + + | Home Phone [...] [facility] | | | and [place] | + + + | Organization | [facility] [...] | | | | | [place] [address] | | + + + + + | Hunter Jackson | ECON | [place] | | + + + + + | Wes Jackson | ECON | [place], [place] | | + + + + + | Oziel Jackson | ECON | [place], [place] | | + + + + + Care Team Providers + +------+ + | Care Signal System Testing Maintainer Name | Role | Phone | + [...] + + | 06/02/ | Office | [facility] | Rodolfo Cruz, | Multiple contusions | | 2013 | Visit | MEDICINE [place] | [address] | (Primary Dx); | | | | [address] | [place], [place] | Hyperlipidemia; | | | | [place] | [address] | Hypertension; | | | | [address] | | Osteoarthritis; | | | | [phone] | | GERD; TIA; Asthma | | [...] female. HPI Recent visit to ER in [place] for a fall and multiple bruises. 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 | [place] | [phone] | | [facility] | | [address] | | | - LABORATORY | | | | + + + + + | [address] | [address] | [place] | | | [facility] | | [address] | | | - LABORATORY | | [...]
--- OUTSIDE RECORDS SUMMARY | ~2019-05-18 | XMS | Encounter Summary ---
Demographics + + + | Address | [address] | | | [place] [address] | + + + | Home Phone [...] Author | [facility] | | | and [place] | + + + | Organization | [facility] | | | [...] | | | | | [place] [address] | | + + + + + | Hunter Jackson | ECON | [place] | | + + + + + | Wes Jackson | ECON | [place], [place] | | + + + + + | Oziel Jackson | ECON | [place], [place] | | + + + + + Care Team Providers + +------+ + | Care Assignment Agent Name | Role | Phone | [...] + | 08/06/ | Telephone | [facility] | [place]i, | Blood Pressure Check | | 2015 | | CARDIOLOGY [address] | JOSE ALBERTO Linder [address] | (Screening) | | | | [place], | [place], | | | | | [place] [address] | [place] [address] | | | | | [phone] | [phone] | | | | | | | [...] [place] | | | | | | [place] [address] | | | | | | [address] | | | | | | | | +--------+---------+ + + + | 11/21/ | Office | Cardiology | Yesi, | | | 2019 | Visit | | JOSE ALBERTO [address]inder [address] | | | | | | [place] | | | | | | [place] [address] | | | | | | [phone] | | | | | | | | +--------+---------+ + + + documented as of this encounter Visit Diagnoses Not on filedocumented in this encounter"
--- OUTSIDE RECORDS SUMMARY | ~2019-05-18 | XMS | Encounter Summary ---
Demographics + + + | Address | [address] | | | [place] [address] | + + + | Home Phone [...] Author | [facility] | | | and [place] | + + + | Organization | [facility] [...] + | Hunter Jackson | ECON | [place] | | + + + + + | Wes Jackson | ECON | [place], [place] | | + + + + + | Oziel Jackson | ECON | [place], [place] | | + + + + + Care Team Providers + +------+ + | Care Domestic Housekeeper Name | Role | Phone | + [...] | 02/14/ | Refill | [facility] | Rodolfo Cruz, | Medication Refill | | 2016 | | MEDICINE [address] | [address] | | | | | [place] | [place] [address] | | | | | [place] [address] | [address] | | | | | [phone] | | | +--------+--------+ + + + [...] | | | | | | [place] [address] | | | | | | [phone] | | | | | | | | +--------+---------+ + + + documented as of this encounter Visit Diagnoses Not on filedocumented in this encounter"
--- OUTSIDE RECORDS SUMMARY | ~2019-05-18 | XMS | Encounter Summary ---
Demographics + + + | Address | [address] | | | [place] [address] | + + + | Home Phone [...] Author | [facility] | | | and Ohana | + + + | Organization | [facility] | | [...] SWA[place] | | | | | [place] [address] | | + + + + + | Hunter Jackson | ECON | [place] | | + + + + + | Wes Jackson | ECON | [place], [place] | | + + + + + | Oziel Jackson | ECON | [place], [place] | | + + + + + Care Team Providers + +------+ + | Care Wheat Cleaner Name | Role | Phone | [...] Description | +--------+---------+ + + + | 08/29/ | [facility] | [facility] [place] | Ulysses Jensen, | Rotator cuff | | 2017 | Visit | ORTHOPEDIC SURGERY | [address] | syndrome, right | | | | [address] | [place] | (Primary Dx); [facility] | | | | [place] | [address] | arthritis | | | | [address] | | | | | | [phone] | | | +--------+---------+ + + + [...] Temperature | 36.9 C (98.4 F) | 08/29/2016 1:56 PM | | | | | PDT [...] Weight | 79.8 kg (176 lb) | 08/29/2016 1:56 PM | | | | | PDT | | + + + + + | Height | 162.6 cm (5' 4") | 08/29/2016 1:56 PM | | | | | PDT | | + + + + + | Body Mass Index | 30.21 | 08/29/2016 1:56 PM | | | | | PDT | | + + + + + documented in this encounter Progress Notes Ulysses Jensen MD - 08/30/2016 3:58 PM PDTPatient returns for right shoulder and right f irst cmc injections Under sterile conditions today I injected her right shoulder subacromial space with kenalog 40mg and 3cc naropin I then injected her right first cmc joint with celestone 1cc under sterile conditions No complications Will return as needed documented [...] [place] | | | | | | [address] | | | | | | | | +--------+---------+ + + + | 11/21/ | Office | Cardiology | Yesi, | | | 2019 | Visit | | JOSE ALBERTO Linder [address] | | | | | | [place], | | | | | | [place] [address] | | | | | | [phone] | | | | | | | [...] + | betamethasone (CELESTONE | Given | 08/30/19 | 3 mg | | Other | | SOLUSPAN) injection 3 mg 3 mg, | | 17 2:41 | | | (Comment | | Intra-articular, EVERY 24 HOURS | | PM PDT | | | ) | | INTERVAL, First dose on Fri | | | | | | | 08/29/16 at 1500, For 2 doses, | | | | | | | Shake well. Not for IV use., | | | | | | + +--------+ +------+------+ + +---+---+ | | | +---+---+ + +-------+ +-------+---+ + | triamcinolone acetonide | Given | 08/30/19 | 40 mg | | Shoulder | | (KENALOG-40) 40 mg/mL injection | | 17 2:42 | | | -Right | | 40 mg 40 mg, Intra-articular, | | PM PDT | | | | | ONCE, [facility] 08/29/16 at 1500, For 1 | | | | | | | dose, Shake well. Not for IV | | | | | | | use., | | | | | | + +-------+ +-------+---+ + +---+---+ | | | +---+---+ documented in this encounter
--- OUTSIDE RECORDS SUMMARY | ~2019-05-18 | XMS | Encounter Summary ---
Demographics + + + | Address | [address] | | | [place] [address] | + + + | Home Phone [...] | Author | [facility] | | | and Ohana | + + + | Organization | [facility] | | [...] | | | | | [place] [address] | | + + + + + | Hunter Jackson | ECON | [place] | | + + + + + | Wes Jackson | ECON | [place], [place] | | + + + + + | Oziel Jackson | ECON | [place], [place] | | + + + + + Care Team Providers + +------+ + | Care Water Resources Business Segment Leader Name | Role | Phone | [...] | [address] | | | | | [address] | | | | | | [phone] | | | +--------+--------+ + + + [...] | | | | | | [place] [address] | | | | | | [phone] | | | | | | | | +--------+---------+ + + + documented as of this encounter Visit Diagnoses Not on filedocumented in this encounter"
--- OUTSIDE RECORDS SUMMARY | ~2019-05-18 | XMS | Encounter Summary ---
Demographics + + + | Address | [address] | | | [place] [address] | + + + | Home Phone [...] Author | [facility] | | | and Ohana | + + + | Organization | [facility] [...] SWA[place] | | | | | [place] [address] | | + + + + + | Hunter Jackson | ECON | [place] | | + + + + + | Wes Jackson | ECON | [place], [place] | | + + + + + | Oziel Jackson | ECON | [place], [place] | | + + + + + Care Team Providers + +------+ + | Care District Gauger Name | Role | Phone | [...] + + | 08/29/ | Office | [facility] [place] | Ulysses Jensen, | Rotator cuff | | 2017 | Visit | ORTHOPEDIC SURGERY | [address] | syndrome, right | | | | [address] | [place] | (Primary Dx); [facility] | | | | [place] | [address] | arthritis | | | | [address] | | | | | | [phone] | | | +--------+---------+ + + + [...] [place] | | | | | | [address] | | | | | | | | +--------+---------+ + + + | 11/21/ | Office | Cardiology | Yesi, | | | 2019 | Visit | | JOSE ALBERTO Linder [address] | | | | | | [place], | | | | | | [place] [address] | | | | | | [phone] | | | | | | | [...] PDT | | | | | ONCE, [facility] 08/29/16 at 1500, For 1 | | | | | | | dose, Shake well. Not for IV | | | | | | | use., | | | | | | + +-------+ +-------+---+ + +---+---+ | | | +---+---+ documented in this encounter
--- OUTSIDE RECORDS SUMMARY | ~2019-05-18 | XMS | Encounter Summary ---
Demographics + + + | Address | [address] | | | [place] [address] | + + + | Home Phone [...] + | Author | [facility] | | | and Ohana | + + + | Organization | [facility] [...] | | | | | [place] [address] | | + + + + + | Hunter Jackson | ECON | [place] | | + + + + + | Wes Jackson | ECON | [place], [place] | | + + + + + | Oziel Jackson | ECON | [place], [place] | | + + + + + Care Team Providers + +------+ + | Care Reporting Specialist Name | Role | Phone | [...] Chronic low | Yany, | [address] | | | | | back pain | Velvet, | [place], | | | | | DDD | PA-C [address] | [place] | | | | | (degenerativ | [address] | [address] | | | | | e disc | [place] | Phone: | | | | | disease), | [address] | [phone] | | | | | lumbar | Phone: | Fax: | | | | | Procedures | [phone] | [phone] | | | | | MRI Lumbar | Fax: | | | | | | Spine wo | [phone] | | | | | | Contrast [...] back pain (Primary | | | | [place], | [address] [place], | Dx); Chronic low | | | | [place] [address] | [place] [address] | back pain; DDD | | | | [phone] | [phone] | (degenerative disc | | | | [...] 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 | [place] | [phone] | | [facility] | | [address] | | | - IMAGING | | [...]
--- OUTSIDE RECORDS SUMMARY | ~2019-05-18 | XMS | Encounter Summary ---
Demographics + + + | Address | [address] | | | [place] [address] | + + + | Home Phone [...] | Author | [facility] | | | and Ohana | + + + | Organization | [facility] | [...] [place] | | | | | [place] [address] | | + + + + + | Hunter Jackson | ECON | [place] | | + + + + + | Wes Jackson | ECON | [place], [place] | | + + + + + | Oziel Jackson | ECON | [place], [place] | | + + + + + Care Team Providers + +------+ + | Care Senior Advisory Name | Role | Phone | + [...] + + | 09/17/ | Telephone | [facility] | Ulysses Jensen, | Other | | 2016 | | ORTHOPEDIC SURGERY | [address] [facility] | | | | | [address] [facility] | [place] [address] | | | | | [place] | [address] | | | | | [address] | | | | | | [phone] | | | +--------+ + + + [...] | | | | | | [place] [address] | | | | | | [phone] | | | | | | | | +--------+---------+ + + + documented as of this encounter Visit Diagnoses Not on filedocumented in this encounter"
--- OUTSIDE RECORDS SUMMARY | ~2019-05-18 | XMS | Encounter Summary ---
Demographics + + + | Address | [address] | | | [place] [address] | + + + | Home Phone [...] Author | [facility] | | | and Ohana | + + + | Organization | [facility] [...] [place] | | | | | [place] [address] | | + + + + + | Hunter Jackson | ECON | [place] | | + + + + + | Wes Jackson | ECON | [place], [place] | | + + + + + | Oziel Jackson | ECON | [place], [place] | | + + + + + Care Team Providers + +------+ + | Care Bellhop Name | Role | Phone | + +------+ + | Kellie Gunderson | PCP | | + +------+ + Encounter Details +--------+ + + + + | Date | Type | Department | Care Team | Description | +--------+ + + + + | 11/16/ | Orders Only | [facility] | Jesse Rodriguez, | Wound infection | | 2017 | | [facility] | [address] | after surgery, | | | | [facility] [address] | [address] | initial encounter | | | | [address] | [place] [address] | (Primary Dx) | | | | [place] | [phone] | | | | | [address] | | | | | | [phone] | | | +--------+ + + + [...] | | | | | | [place] [address] | | | | | | [phone] | | | | | | | | +--------+---------+ + + + documented as of this encounter Visit Diagnoses + + | Diagnosis | + + | Wound infection after surgery, initial encounter - Primary | + + documented in this encounter"
--- OUTSIDE RECORDS SUMMARY | ~2019-05-18 | XMS | Encounter Summary ---
Demographics + + + | Address | [address] | | | [place] [address] | + + + | Home Phone [...] | Author | [facility] | | | and Ohana | + + + | Organization | [facility] [...] [place] | | | | | [place] [address] | | + + + + + | Hunter Jackson | ECON | [place] | | + + + + + | Wes Jackson | ECON | [place], [place] | | + + + + + | Oziel Jackson | ECON | [place], [place] | | + + + + + Care Team Providers + +------+ + | Care Partition Making Machine Operator Name | Role | [...] Medicine | Sleep | Braulio Daniel | [place] [address] | | | Required | | apnea, | MD [address] | [place] | | | | | unspecified | [place] | [place], | | | | | Paradoxical | [facility] | [place] [address] | | | | | insomnia | [place], [place] | Phone: | | | | | Procedures | [address] | [phone] | | | | | DE POLYSOM | Phone: | Fax: | | | | | 6/>YRS SLEEP | [phone] | [phone] | | | | | 4/> ADDL | Fax: | | | | | | JACQUELYN ATTND | [phone] | | | | | | DE POLYSOM | | | | | | [...] + | 07/22/ | Office | [facility] | Braulio León | 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 [address] | MD [address] | (Primary Dx); Sleep | | | | [address] [place] | [address] [place] | disorder due to a | | | | [place] [address] | [place] [address] | general medical | | | | [phone] | [phone] | condition, insomnia | | | | [...] STREETER | | | | | | [address] | | | | | | | | +--------+---------+ + + + | 11/21/ | Office | Cardiology | Yesi, | | | 2019 | Visit | | JOSE ALBERTO Linder [address] | | | | | | [place] | | | | | | [place] [address] | | | | | | [phone] | | | | | | | | +--------+---------+ + + + + + +--------+ + + | Name | Type | Priori | Associated Diagnoses | Order Schedule | | | | ty | | | + + +--------+ + + | * [facility] - | Outpatient | [...]
--- OUTSIDE RECORDS SUMMARY | ~2019-05-18 | XMS | Encounter Summary ---
Demographics + + + | Address | [address] | | | [place] [address] | + + + | Home Phone | | + + + | Preferred Language | Unknown | + + + | Marital Status | | + + + | Yazidi Affiliation | Unknown | + + + | Race | Unknown | + + + | Ethnic Group | Unknown | + + + Author + + + | Author | [facility] | | | and [place]ana | + + + | Organization | [facility] [...] | | | | | [place] [address] | | + + + + + | Hunter Jackson | ECON | [place] | | + + + + + | Wes Jackson | ECON | [place], [place] | | + + + + + | Oziel Jackson | ECON | [place], [place] | | + + + + + Care Team Providers + +------+ + | Care Farm Agent Name | Role | Phone | + +------+ + | Rodolfo Cruz MD | PCP | | + +------+ + Encounter Details +--------+ + + + + | Date | Type | Department | Care Team | Description | +--------+ + + + + | 08/18/ | Abstract | [facility] [place] | Harsha Selby | | | 2014 | | PHYSIATRY [address] | MD Josh [address] | | | | | [place], | [address] | | | | | [place] [address] | [address] | | | | | [phone] | | | +--------+ + + + [...] 06/02/ | Office | Orthopedic Surgery | Ulsyses Jensen, | | | 2019 | Visit [...] | | | | | | [place] [address] | | | | | | [phone] | | | | | | | | +--------+---------+ + + + documented as of this encounter Visit Diagnoses Not on filedocumented in this encounter"
--- OUTSIDE RECORDS SUMMARY | ~2019-05-18 | XMS | Encounter Summary ---
Demographics + + + | Address | [address] | | | [place] [address] | + + + | Home Phone [...] | [facility] | | | and [place]ana | + + + | Organization | [facility] | | [...] | | | | | [place] [address] | | + + + + + | Hunter Jackson | ECON | [place] | | + + + + + | Wes Jackson | ECON | [place], [place] | | + + + + + | Oziel Jackson | ECON | [place], [place] | | + + + + + Care Team Providers + +------+ + | Care Computer Analyst Name | Role | Phone | [...] | 11/13/ | Refill | [facility] | Rodolfo Cruz, | Medication Refill | | 2016 | | MEDICINE [address] | [address] | | | | | [place] | [place] [address] | | | | | [place] [address] | [address] | | | | | [phone] | | | +--------+--------+ + + + [...] | | | | | | [place] [address] | | | | | | [phone] | | | | | | | | +--------+---------+ + + + documented as of this encounter Visit Diagnoses Not on filedocumented in this encounter"
--- OUTSIDE RECORDS SUMMARY | ~2019-05-18 | XMS | Encounter Summary ---
Demographics + + + | Address | [address] | | | [place] [address] | + + + | Home Phone [...] | Author | [facility] | | | and [place] | + + + | Organization | [facility] [...] | | | | | [place] [address] | | + + + + + | Hunter Jackson | ECON | [place] | | + + + + + | Wes Jackson | ECON | [place], [place] | | + + + + + | Oziel Jackson | ECON | [place], [place] | | + + + + + Care Team Providers + +------+ + | Care Manager Animation Name | Role | Phone | + [...] [place], | | | | | | [address] | [place] [address] | | | | | | Phone: | Phone: | | | | | | [phone] | [phone] | | | | | | Fax: | Fax: | | | | | | [phone] | [phone] | +--------+ + + + + + Encounter Details +--------+---------+ + + + | Date | Type | Department | Care Team | Description | +--------+---------+ + + + | 06/29/ | Office | [facility] | Zion Valencia MD | Epistaxis (Primary | | 2015 | Visit | OTOLARYNGOLOGY [address] | [address] | Dx) | | | | [address] | [address] [place] [place], | | | | | [place] | [place] [address] | | | | | [address] | [phone] | | | | | [phone] | | | +--------+---------+ + + + [...] MD - 06/29/2014 11:54 AM PST [facility] [address] [facility] [address] OFFICE NOTE ZION VALENCIA MD Patient: JACLYN JACKSON Admitting: MR #: [id number] LOC: PT TYPE: Adm Date: 06/29/2014 : [...] Transcribed on 06/29/2014 12:05:14 by johnny velázquez# [id number] Confirmation #: [id number] cc: SUGAR CRUZ MD Zion porras MD - 06/29/2014 11:51 AM PSTSee dictation # [id number] signed by Zion Valencia MD at 06/29/2014 [...] [place] | | | | | | [address] | | | | | | | | +--------+---------+ + + + | 11/21/ | Office | Cardiology | Yesi, | | | 2019 | Visit | | JOSE ALBERTO Linder [address] | | | | | | [place], | | | | | | [place] [address] | | | | | | [phone] | | | | | | | | +--------+---------+ + + + documented as of this encounter Visit Diagnoses + + | Diagnosis | + + | Epistaxis - Primary | + + documented in this encounter
--- OUTSIDE RECORDS SUMMARY | ~2019-05-18 | XMS | Encounter Summary ---
Demographics + + + | Address | [address] | | | [place] [address] | + + + | Home Phone [...] | Author | [facility] | | | and [place] | + + + | Organization | [facility] [...] | | | | | [place] [address] | | + + + + + | Hunter Jackson | ECON | [place] | | + + + + + | Wes Jackson | ECON | [place], [place] | | + + + + + | Oziel Jackson | ECON | [place], [place] | | + + + + + Care Team Providers + +------+ + | Care Family Helper Name | Role | Phone | + +------+ + PCP | Unavailable | + +------+ + Encounter Details +--------+ + + + + | Date | Type | Department | Care Team | Description | +--------+ + + + + | 03/28/ | Hospital | [facility] | | | | 2009 | Encounter | MED CTR GENERIC OP | | | | | | CONV DEPT [address] | | | | | | [place], | | | | | | [place] [address] | | | | | | [phone] | | | +--------+ + + + [...] | | | | | | [place] [address] | | | | | | [phone] | | | | | | | | +--------+---------+ + + + documented as of this encounter Visit Diagnoses Not on filedocumented in this encounter"
--- OUTSIDE RECORDS SUMMARY | ~2019-05-18 | XMS | Encounter Summary ---
Demographics + + + | Address | [address] | | | [place] [address] | [...] | Author | [facility] | | | and [place] | + + + | Organization | [facility] [...] [place] | | | | | [place] [address] | | + + + + + | Hunter Jackson | ECON | [place] | | + + + + + | Wes Jackson | ECON | [place], [place] | | + + + + + | Oziel Jackson | ECON | [place], [place] | | + + + + + Care Team Providers + +------+ + | Care Rope Coiling Machine Operator Name | Role | Phone | + +------+ + | Kellie Gunderson | PCP | | + +------+ + Encounter Details +--------+ + + + + | Date | Type | Department | Care Team | Description | +--------+ + + + + | 09/11/ | Abstract | [facility] [place] | Yesi, | | | 2017 | | CARDIOLOGY [address] | JOSE ALBERTO Linder [address] | | | | | [place], | [place], | | | | | [place] [address] | [place] [address] | | | | | [phone] | [phone] | | | | | | | [...] W | | | | | | [place] | | | | | | [place] [address] | | | | | | [phone] | | | | | | | [...]
--- OUTSIDE RECORDS SUMMARY | ~2019-05-18 | XMS | Encounter Summary ---
Demographics + + + | Address | [address] | | | [place] [address] | + + + | Home Phone [...] | Author | [facility] | | | and [place]ana | + + + | Organization | [facility] | | | and [...] | | | | | [place] [address] | | + + + + + | Hunter Jackson | ECON | [place] | | + + + + + | Wes Jackson | ECON | [place], [place] | | + + + + + | Oziel Jackson | ECON | [place], [place] | | + + + + + Care Team Providers + +------+ + | Care Hide Trimmer Name | Role | Phone | + [...] | 01/26/ | Refill | [facility] | Rodolfo Cruz, | Medication Refill | | 2016 | | MEDICINE [address] | [address] | | | | | [place] | [place] [address] | | | | | [place] [address] | [address] | | | | | [phone] | | | +--------+--------+ + + + [...] | | | | | | [place] [address] | | | | | | [phone] | | | | | | | | +--------+---------+ + + + documented as of this encounter Visit Diagnoses Not on filedocumented in this encounter"
--- OUTSIDE RECORDS SUMMARY | ~2019-05-18 | XMS | Encounter Summary ---
Demographics + + + | Address | [address] | | | [place] [address] | + + + | Home Phone [...] | Author | [facility] | | | and [place]ana | + + + | Organization | [facility] [...] | | | | | [place] [address] | | + + + + + | Hunter Jackson | ECON | [place] | | + + + + + | Wes Jackson | ECON | [place], [place] | | + + + + + | Oziel Jackson | ECON | [place], [place] | | + + + + + Care Team Providers + +------+ + | Care Artificial Stone Applicator Name | Role | Phone | [...] + + | 08/18/ | Hospital | [facility] | [place] Ayon | Inflammation of | | 2015 | Encounter | MED CTR MEDICAL | MD Rodolfo [address] | blood vessels (HCC) | | | | [facility] [address] [place] | (Primary Dx) | | | | [address] [place] | [place] [address] | | | | | [place] [address] | [phone] | | | | | [phone] | | | +--------+ + + + [...] [address] | | | | | | [address] | | | | | | | | +--------+---------+ + + + | 11/21/ | Office | Cardiology | Yesi, | | | 2019 | Visit | | JOSE ALBERTO Linder [address] | | | | | | [place], | | | | | | [place] [address] | | | | | | [phone] | | | | | | | | +--------+---------+ + + + documented as of this encounter Visit Diagnoses + + | Diagnosis | + + | 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
--- OUTSIDE RECORDS SUMMARY | ~2019-05-18 | XMS | Encounter Summary ---
Demographics + + + | Address | [address] | | | [place] [address] | + + + | Home Phone [...] | Author | [facility] | | | and hOana | + + + | Organization | [facility] [...] | | | | | [place] [address] | | + + + + + | Gisele Jackson | ECON | [place] | | + + + + + | Wes Jackson | ECON | [place], [place] | | + + + + + | Oziel Jackson | ECON | [place], [place] | | + + + + + Care Team Providers + +------+ + | Care Corporate Responsibility Officer Name | Role | Phone | [...] Required | | Impaired | [address] [facility] | HOSPITAL | | | | | functional | AVE [place] | [address] | | | | | mobility, | [place] | AVE | | | | | balance, and | [address] | [place] | | | | | endurance | Phone: | [address] | | | | | | [phone] | Phone: | | | | | | Fax: | [phone] | | | | | | [phone] | Fax: | | | | | | | [phone] | +--------+ + + + + + Reason for Visit + + + | Reason | Comments | + + + | Referral | | + + + Encounter Details +--------+ + + + + | Date | Type | Department | Care Team | Description | +--------+ + + + + | 12/13/ | Telephone | [facility] | Rodolfo Cruz, | Referral | | 2015 | | MEDICINE [address] [place] [address] | [address] | | | | | [facility] | [facility] [place] | | | | | [place] [address] | [address] | | | | | [phone] | | | +--------+ + + + [...] | | | | | | [place] [address] | | | | | | [phone] | | | | | | | [...]
--- OUTSIDE RECORDS SUMMARY | ~2019-05-18 | XMS | Encounter Summary ---
Demographics + + + | Address | [address] | | | [place] [address] | + + + | Home Phone [...] + | Author | [facility] | | | and [place] | + + + | Organization | [facility] | | | [...] | | | | | [place] [address] | | + + + + + | Hunter Jackson | ECON | [place] | | + + + + + | Wes Jackson | ECON | [place], [place] | | + + + + + | Oziel Jackson | ECON | [place], [place] | | + + + + + Care Team Providers + +------+ + | Care Machine Or Machinery Mechanic Name | Role | Phone | [...] | 11/21/ | Refill | [facility] | Rodolfo Cruz, | Medication Refill | | 2015 | | MEDICINE [address] | [address] | | | | | [place] | [place] [address] | | | | | [place] [address] | [address] | | | | | [phone] | | | +--------+--------+ + + + [...] | | | | | | [place] [address] | | | | | | [phone] | | | | | | | | +--------+---------+ + + + documented as of this encounter Visit Diagnoses + + | Diagnosis | + + | Insomnia - Primary Insomnia, unspecified | + + documented in this encounter"
--- OUTSIDE RECORDS SUMMARY | ~2019-05-18 | XMS | Encounter Summary ---
Demographics + + + | Address | [address] | | | [place] [address] | + + + | Home Phone [...] Author | [facility] | | | and [place] | + + + | Organization | [facility] | [...] | | | | | [place] [address] | | + + + + + | Hunter Jackson | ECON | [place] | | + + + + + | Wes Jackson | ECON | [place], [place] | | + + + + + | Oziel Jackson | ECON | [place], [place] | | + + + + + Care Team Providers + +------+ + | Care Electric Arc Furnace Operator Name | Role | Phone | [...] + + | 06/02/ | Office | [facility] | Rodolfo Cruz, | Multiple contusions | | 2013 | Visit | MEDICINE [place] | [address] | (Primary Dx); | | | | [address] | [place], [place] | Hyperlipidemia; | | | | [place], [place] | [address] | Hypertension; | | | | [address] | | Osteoarthritis; | | | | [phone] | | GERD; TIA; Asthma | | [...] female. HPI Recent visit to ER in [place] for a fall and multiple bruises. 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 | [place] | [phone] | | [facility] | | [address] | | | - LABORATORY | | | | + + + + + | [address] | [address] | [place] | | | [facility] | | [address] | | | - LABORATORY | | [...]
--- OUTSIDE RECORDS SUMMARY | ~2019-05-18 | XMS | Encounter Summary ---
Demographics + + + | Address | [address] | | | [place] [address] | + + + | Home Phone [...] | Author | [facility] | | | and [place] | + + + | Organization | [facility] [...] [place] | | | | | [place] [address] | | + + + + + | Hunter Jackson | ECON | [place] | | + + + + + | Wes Jackson | ECON | [place], [place] | | + + + + + | Oziel Jackson | ECON | [place], [place] | | + + + + + Care Team Providers + +------+ + | Care Marine Resource Economist Name | Role | Phone | + +------+ + | Kellie Gunderson | PCP | | + +------+ + Encounter Details +--------+ + + + + | Date | Type | Department | Care Team | Description | +--------+ + + + + | 10/31/ | Hospital | [facility] | Amna Benavides, | | | 2016 | Encounter | HEART MED CTR XRAY | [address] | | | | | [address] | [address] [place] | | | | | [place], [place] | [address] | | | | | [address] | | | | | | [phone] | | | +--------+ + + + [...] STREETER | | | | | | [address] | | | | | | | | +--------+---------+ + + + | 11/21/ | Office | Cardiology | Yesi, | | | 2019 | Visit | | JOSE ALBERTO Linder [address] | | | | | | [place], | | | | | | [place] [address] | | | | | | [phone] | | | | | | | [...]
--- OUTSIDE RECORDS SUMMARY | ~2019-05-18 | XMS | Encounter Summary ---
Demographics + + + | Address | [address] | | | [place] [address] | + + + | Home Phone [...] + | Author | [facility] | | | and [place] | + + + | Organization | [facility] | [...] | | | | | [place] [address] | | + + + + + | Gisele Jackson | ECON | [place] | | + + + + + | Wes Jackson | ECON | [place], [place] | | + + + + + | Oziel Jackson | ECON | [place], [place] | | + + + + + Care Team Providers + +------+ + | Care Slide Fastener Chain Assembler Name | Role | Phone | [...] | Physical | Diagnoses | Morasch, | IP ST | | | Services | Therapy | Thoracic | Rodolfo Reilly MD | G[place] | | | Required | | sprain and | [address] [facility] | HOSPITAL | | | | | strain, | A[address] [place] | [address] | | | | | initial | [place] | AVE | | | | | encounter | [address] | [place] | | | | | | Phone: | [address] | | | | | | [phone] | Phone: | | | | | | Fax: | [phone] | | | | | | [phone] | | +--------+ + + + + + Reason for Visit + + + | Reason | Comments | + + + | ED Follow-up | | + + + Encounter Details +--------+---------+ + + + | Date | Type | Department | Care Team | Description | +--------+---------+ + + + | 09/27/ | Office | [facility] | Rodolfo Cruz, | Thoracic sprain and | | 2013 | Visit | MEDICINE [address] [place] [address] | [address] | strain, initial | | | | [address] [place] | [place] [address] | encounter (Primary | | | | [place] [address] | [address] | Dx) | | | | [phone] | | | +--------+---------+ + + + [...] + | Blood Pressure | 142/78 | 09/27/2013 2:16 PM | | | | | PDT | | + + + + + | Pulse | 64 | 09/27/2013 2:16 PM | | | | | PDT | | + + + + + | Temperature | 36.9 C (98.5 F) | 09/27/2013 2:16 PM | | | | | PDT | | + + + + + | Respiratory Rate | 20 | 09/27/2013 2:16 PM | | | | | PDT | | + + + + + | Oxygen Saturation | 98% | 09/27/2013 2:16 PM | | | | | PDT | | + + + + + | Inhaled Oxygen | - | - | | | Concentration | | | | + + + + + | Weight | 94.8 kg (209 lb) | 09/27/2013 2:16 PM | | | | | PDT | | + + + + + | Height | 167.6 cm (5' 6") | 09/27/2013 2:16 PM | | | | | PDT | | + + + + + | Body Mass Index | 33.73 | 09/27/2013 2:16 PM | | | | | PDT | | + + + + + documented in this encounter Progress Notes Rodolfo Cruz MD - 09/27/2013 2:30 PM PDTFormatting of this note might be different f rom the original. Subjective: Patient ID: Soumya Jackson is a 78 y.o. female. HPI Back pain after severe coughing episode September 15. Back is still killing her off and on. Bett er when she takes hydrocodone. She has been to the ER for this twice. On right side of mid back. BM's make it worse. Riding in a car bothers her. Difficult to sing. Pain is curre ntly a 3, sometimes a 10, Last night she had a severe that was aborted with a pain pill. Review of Systems Objective: Physical Exam Heent, WNL, No carotid bruit Chest CTAB Heart RR&R /s M Abd S,NT,ND,BS+ Ext, no CCor E Neuro Non-focal Lymph, no cervical, axillary, inguinal adenopathy Musculoskeletal, no gross deformity or loss or range of motion Skin, no gross lesions Assessment: 1. Thoracic sprain and strain, initial encounter Plan: Reviewed ER notes. She may benefit from physical therapy. Skelaxin trial. Consider MRI in 4 weeks. 25min w as spent with the patient of which greater than 50% was spending in counseling regarding abo ve. documented in this encounter Plan of Treatment +--------+---------+ + + + | Date | Type | Specialty | Care Team | Description | +--------+---------+ + + + | 06/02/ | Office | Orthopedic Surgery | Ulysses Jensen, | | 2019 | Visit | | MD Danny [address] | | | | | | [place], [place] | | | | | | [address] | | | | | | | | +--------+---------+ + + + | 11/21/ | Office | Cardiology | Yesi, | | | 2019 | Visit | | JOSE ALBERTO Linder [address] | | | | | | [place], | | | | | | [place] [address] | | | | | | [phone] | | | | | | | | +--------+---------+ + + + + + +--------+ + + | Name | Type | Priori | Associated Diagnoses | Order Schedule | | | | ty | | | + + +--------+ + + | C[facility] | Outpatient | Routin | Thoracic sprain | Ordered: 09/27/2013 | | Clinic Physical | Referral | e | and strain, initial | | | Therapy - AMB | | | encounter | | | Referral | | | | | + + +--------+ + + documented as of this encounter Visit Diagnoses + + | Diagnosis | + + | Thoracic sprain and strain, initial encounter - Primary | + + documented in this encounter
--- OUTSIDE RECORDS SUMMARY | ~2019-05-18 | XMS | Encounter Summary ---
Demographics + + + | Address | [address] | | | [place] [address] | + + + | Home Phone [...] | Author | [facility] | | | and [place] | + + + | Organization | [facility] [...] | | | | | [place] [address] | | + + + + + | Hunter Jackson | ECON | [place] | | + + + + + | Wes Jackson | ECON | [place], [place] | | + + + + + | Oziel Jackson | ECON | [place], [place] | | + + + + + Care Team Providers + +------+ + | Care Bag Washer Name | Role | Phone | [...] | [address] | | | | | [address] | | | | | | [phone] | | | +--------+--------+ + + + [...] | | | | | | [place] [address] | | | | | | [phone] | | | | | | | | +--------+---------+ + + + documented as of this encounter Visit Diagnoses Not on filedocumented in this encounter"
--- OUTSIDE RECORDS SUMMARY | ~2019-05-18 | XMS | Encounter Summary ---
[...] | Author | [facility] | | | and [place] | + + + | Organization | [facility] [...] | | | | | [place] [address] | | + + + + + | Hunter Jackson | ECON | [place] | | + + + + + | Wes Jackson | ECON | [place], [place] | | + + + + + | Oziel Jackson | ECON | [place], [place] | | + + + + + Care Team Providers + +------+ + | Care Auto Clutch Specialist Name | Role | Phone | [...] | (Primary Dx) | | | | [facility] | [place], [place] | | | | | [place] [address] | [address] | | | | | [phone] | | | +--------+ + + + [...] [address] | | | | | | [place], | | | | | | [place] [address] | | | | | | [phone] | | | | | | | [...] 13 | 7 - 18 mg/dL | [facility] | | | | | | [facility] | | | | | | MEDICAL | | | | | | CENTER - | | | | | | LABORATORY | | + + + + + + | Creatinine | 0.76 | 0.60 - 1.30 | [facility] | | | | | mg/dL | [facility] | | | | | | MEDICAL | | | | | | CENTER - | | | | | | LABORATORY | | + + + + + + | eGFR if not | >60Comment: GLOMERULAR | >=60 | [facility] | | | | FILTRATION | mL/min/1.73m2 | [facility] | | | EMIRATI | RATE,ESTIMATED | | MEDICAL | | | | mL/min/1.86t1Bzle than | | CENTER - | | [...] ST. | [address] | [place] | [phone] | | [facility] | | [address] | | | - LABORATORY | | | | + + + + + documented in this encounter Visit Diagnoses + + | Diagnosis | + + | Pulmonary nodules - Primary Other nonspecific abnormal finding of lung field | + + documented in this encounter"
--- OUTSIDE RECORDS SUMMARY | ~2019-05-18 | XMS | Encounter Summary ---
Demographics + + + | Address | [address] | | | [place] [address] | + + + | Home Phone [...] | Author | [facility] | | | and [place] | + + + | Organization | [facility] | [...] [place] | | | | | [place] [address] | | + + + + + | Hunter Jackson | ECON | [place] | | + + + + + | Wes Jackson | ECON | [place], [place] | | + + + + + | Oziel Jackson | ECON | [place], [place] | | + + + + + Care Team Providers + +------+ + | Care Renewable Energy Trader Name | Role | Phone | + [...] | Therapy | Cervical | Bal, | [place] | | | Required | | radiculopath | Harsha Moreno MD | PHYSICAL | | | | | y DDD | [address] | THERAPY - | | | | | (degenerativ | [place] | [place] | | | | | e disc | [facility] [place] | [address] | | | | | disease), | [address] | [place] | | | | | cervical | Phone: | 15 | | | | | [place] | [phone] | [place], [place] | | | | | stenosis of | Fax: | [address] | | | | | cervical | [phone] | Phone: | | | | | region | | [phone] | | | | | Stenosis of | | Fax: | | | | | cervical | | [phone] | | | | | spine | | | | | | | Procedures | | | | | | | HIM 01/20 | | | +--------+ + + + + + Encounter Details +--------+ + + + + | Date | Type | Department | Care Team | Description | +--------+ + + + + | 01/19/ | Orders Only | [facility] [place] | Harsha Selby | Cervical | | 2017 | | PHYSIATRY [address] | T, [address] | radiculopathy | | | | [place], | [address] [place] | (Primary Dx); DDD | | | | [place] [address] | [address] | (degenerative disc | | | | [phone] | | disease), cervical; | | | [...] | | | | | | [place] [address] | | | | | | [phone] | | | | | | | | +--------+---------+ + + + + + +--------+ + + | Name | Type | Priori | Associated Diagnoses | Order Schedule | | | | ty | | | + + +--------+ + + | Ambulatory referral | Outpatient | Routin | Cervical | Ordered: 01/19/2018 | | to Physical Therapy | Referral | e | radiculopathy DDD | | | | | | (degenerative disc | | | | | | disease), cervical | | | | | | Foram[place] stenosis | | | | | | of cervical region | | | | | | Stenosis of cervical | | | | | | spine | | + + +--------+ + [...]
--- OUTSIDE RECORDS SUMMARY | ~2019-05-18 | XMS | Encounter Summary ---
Demographics + + + | Address | [address] | | | [place] [address] | + + + | Home Phone [...] | Author | [facility] | | | and [place] | + + + | Organization | [facility] | [...] | | | | | [place] [address] | | + + + + + | Hunter Jackson | ECON | [place] | | + + + + + | Wes Jackson | ECON | [place], [place] | | + + + + + | Oziel Jackson | ECON | [place], [place] | | + + + + + Care Team Providers + +------+ + | Care Transformer Assembly Supervisor Name | Role | Phone | [...] [place] | | | | | | [address] | [address] | | | | | | Phone: | Phone: | | | | | | [phone] | [phone] | | | | | | Fax: | Fax: | | | | | | [phone] | [phone] | +--------+ + + + + + Reason for Visit + + + | Reason | Comments | + + + | Toe Pain | right | + + + Encounter Details +--------+---------+ + + + | Date | Type | Department | Care Team | Description | +--------+---------+ + + + | 12/24/ | Office | [facility] | Rodolfo Cruz, | Back pain (Primary | | 2013 | Visit | MEDICINE [facility] Sravan | [address] | Dx); Anemia; Right | | | | [address] [place] | [place] [address] | foot pain; | | | | [place] [address] | [id number] | Osteoarthritis | | | | [phone] | | | +--------+---------+ + + + [...] 06/05/2010 and no changes required: Born in [facility] since 1965 Marital status: Children: 6, 5 living, 10 grandchildren 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
--- OUTSIDE RECORDS SUMMARY | ~2019-05-18 | XMS | Encounter Summary ---
Demographics + + + | Address | [address] | | | [place] [address] | + + + | Home Phone [...] Author | [facility] | | | and [place] | + + + | Organization | [facility] | [...] | | | | | [place] [address] | | + + + + + | Hunter Jackson | ECON | [place] | | + + + + + | Wes Jackson | ECON | [place], [place] | | + + + + + | Oziel Jackson | ECON | [place], [place] | | + + + + + Care Team Providers + +------+ + | Care Sharepoint Web Developer Name | Role | Phone | [...] + | 05/31/ | Telephone | [facility] | Yesi, | Other (issue with | | 2015 | | CARDIOLOGY [address] | JOSE ALBERTO Linder [address] | blood pressure) | | | | [place], | [place], | | | | | [place] [address] | [place] [address] | | | | | [phone] | [phone] | | | | | | | [...] STREETER | | | | | | [address] | | | | | | | | +--------+---------+ + + + | 11/21/ | Office | Cardiology | Yesi, | | | 2019 | Visit | | JOSE ALBERTO Linder [address] | | | | | | [place] | | | | | | [place] [address] | | | | | | [phone] | | | | | | | | +--------+---------+ + + + documented as of this encounter Visit Diagnoses Not on filedocumented in this encounter"
--- OUTSIDE RECORDS SUMMARY | ~2019-05-18 | XMS | Encounter Summary ---
Demographics + + + | Address | [address] | | | [place] [address] | + + + | Home Phone [...] [place] | | | | | [place] [address] | | + + + + + | Hunter Jackson | ECON | [place] | | + + + + + | Wes Jackosn | ECON | [place], [place] | | + + + + + | Oziel Jackson | ECON | [place], [place] | | + + + + + Care Team Providers + +------+ + | Care Ux Specialist Name | Role | Phone | + +------+ + | Kellie Gunderson | PCP | | + +------+ + Encounter Details +--------+ + + + + | Date | Type | Department | Care Team | Description | +--------+ + + + + | 06/01/ | Abstract | [facility] [place] | Yesi, | | | 2018 | | CARDIOLOGY [address] | JOSE ALBERTO Linder [address] | | | | | [place], | [place], | | | | | [place] [address] | [place] [address] | | | | | [phone] | [phone] | | | | | | | [...] | | | | | | [place] | | | | | | [place] [address] | | | | | | [phone] | | | | | | | [...]
--- OUTSIDE RECORDS SUMMARY | ~2019-05-18 | XMS | Encounter Summary ---
Demographics + + + | Address | [address] | | | [place] [address] | + + + | Home Phone [...] | [facility] | | | and [place] | + + + | Organization | [facility] [...] | | | | | [place] [address] | | + + + + + | Hunter Jackson | ECON | [place] | | + + + + + | Wes Jackson | ECON | [place], [place] | | + + + + + | Oziel Jackson | ECON | [place], [place] | | + + + + + Care Team Providers + +------+ + | Care Lease Attendant Name | Role | Phone | [...] [place], | | | | | | [address] | [place] [address] | | | | | | Phone: | Phone: | | | | | | [phone] | [phone] | | | | | | Fax: | Fax: | | | | | | [phone] | [phone] | +--------+ + + + + + Encounter Details +--------+---------+ + + + | Date | Type | Department | Care Team | Description | +--------+---------+ + + + | 03/25/ | Office | [facility] | Zion Davis MD | Meniere's disease, | | 2011 | Visit | OTOLARYNGOLOGY [address] | [address] [place] | unspecified (Primary | | | | [address] | [address] [place], | Dx); Mixed hearing | | | | [place] | [place] [address] | loss, unilateral | | | | [address] | [phone] | | | | | [phone] | | | +--------+---------+ + + + [...] MD - 03/25/2012 1:21 PM PSTSee dictation #[id number] signed by José Luis Davis MD at [...] | | | | | | [place] [address] | | | | | | [phone] | | | | | | | | +--------+---------+ + + + documented as of this encounter Visit Diagnoses + + | Diagnosis | + + | Meniere's disease, unspecified - Primary | + + | Mixed hearing loss, unilateral | + + documented in this encounter
--- OUTSIDE RECORDS SUMMARY | ~2019-05-18 | XMS | Encounter Summary ---
Demographics + + + | Address | [address] | | | [place] [address] | + + + | Home Phone [...] | Author | [facility] | | | and [place] | + + + | Organization | [facility] [...] [place] | | | | | [place] [address] | | + + + + + | Hunter Jackson | ECON | [place] | | + + + + + | Wes Jackson | ECON | [place], [place] | | + + + + + | Oziel Jackson | ECON | [place], [place] | | + + + + + Care Team Providers + +------+ + | Care Medical Logistics Specialist Name | Role | Phone | [...] | 11/25/ | Refill | [facility] [place] | Irina Simms, | Medication Refill | | 2018 | | CARDIOLOGY [address] | MD [address] | | | | | [place], | [place], | | | | | [place] [address] | [place] [address] | | | | | [phone] | [phone] | | | | | | | [...] STREETER | | | | | | [address] | | | | | | | | +--------+---------+ + + + | 11/21/ | Office | Cardiology | Yesi, | | | 2019 | Visit | | JOSE ALBERTO Linder [address] | | | | | | [place] | | | | | | [place] [address] | | | | | | [phone] | | | | | | | | +--------+---------+ + + + documented as of this encounter Visit Diagnoses Not on filedocumented in this encounter"
--- OUTSIDE RECORDS SUMMARY | ~2019-05-18 | XMS | Encounter Summary ---
Demographics + + + | Address | [address] | | | [place] [address] | + + + | Home Phone [...] | [facility] | | | and [place] | + + + | Organization | [facility] & [...] [place] | | | | | [place] [address] | | + + + + + | Hunter Jackson | ECON | [place] | | + + + + + | Wes Jackson | ECON | [place], [place] | | + + + + + | Oziel Jackson | ECON | [place], [place] | | + + + + + Care Team Providers + +------+ + | Care Book Salesman Name | Role | Phone | + +------+ + | Kellie Gunderson | PCP | | + +------+ + Encounter Details +--------+ + + + + | Date | Type | Department | Care Team | Description | +--------+ + + + + | 10/31/ | Hospital | [facility] | Amna Benavides, | | | 2016 | Encounter | HEART MED CTR XRAY | [facility] [address] | | | | | [address] | [address] [place] | | | | | [place], [place] | [address] | | | | | [address] | | | | | | [phone] | | | +--------+ + + + [...] STREETER | | | | | | [address] | | | | | | | | +--------+---------+ + + + | 11/21/ | Office | Cardiology | Yesi, | | | 2019 | Visit | | JOSE ALBERTO Linder [address] | | | | | | [place], | | | | | | [place] [address] | | | | | | [phone] | | | | | | | [...]
--- OUTSIDE RECORDS SUMMARY | ~2019-05-18 | XMS | Encounter Summary ---
Demographics + + + | Address | [address] | | | [place] [address] | + + + | Home Phone [...] | Author | [facility] | | | and [place] | + + + | Organization | [facility] | | | [...] | | | | | [place] [address] | | + + + + + | Hunter Jackson | ECON | [place] | | + + + + + | Wes Jackson | ECON | [place], [place] | | + + + + + | Oziel Jackson | ECON | [place], [place] | | + + + + + Care Team Providers + +------+ + | Care Law Instructor Name | Role | Phone | [...] + + | 02/09/ | Office | [facility] | Ulysses Jensen, | Rotator cuff | | 2013 | Visit | ORTHOPEDIC SURGERY | MD Danny PARHAM | syndrome of right | | | | [address] | [place] [address] | shoulder (Primary | | | | [place] | [address] | Dx); [facility] arthritis | | | | [address] | | | | | | [phone] | | | +--------+---------+ + + + [...] STREETER | | | | | | [address] | | | | | | | | +--------+---------+ + + + | 11/21/ | Office | Cardiology | [place], | | | 2020 | Visit | | JOSE ALBERTO Linder [address] | | | | | | [place], | | | | | | [place] [address] | | | | | | [phone] | | | | | | | [...]
--- OUTSIDE RECORDS SUMMARY | ~2019-05-18 | XMS | Encounter Summary ---
Demographics + + + | Address | [address] | | | [place] [address] | + + + | Home Phone [...] Author | [facility] | | | and Ohana | + + + | Organization | [facility] | [...] | | | | | [place] [address] | | + + + + + | Hunter Jackson | ECON | [place] | | + + + + + | Wes Jackson | ECON | [place], [place] | | + + + + + | Oziel Jackson | ECON | [place], [place] | | + + + + + Care Team Providers + +------+ + | Care Aluminum Siding Applicator Name | Role | Phone | [...] + + | 01/31/ | Office | [facility] | Rodolfo Cruz, | Insomnia (Primary | | 2015 | Visit | MEDICINE [address] | [address] | Dx); Neuropathy; | | | | [address] [place] | [place], [place] | Fatigue; Tinea | | | | [place] [address] | [phone] | corporis; | | | | [phone] | | Generalized anxiety | | | [...] in the back started last Friday in [facility]. 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
--- OUTSIDE RECORDS SUMMARY | ~2019-05-18 | XMS | Encounter Summary ---
Demographics + + + | Address | [address] | | | [place] [address] | + + + | Home Phone [...] | Author | [facility] | | | and Ohana | + + + | Organization | [facility] | | [...] | | | | | [place] [address] | | + + + + + | Hunter Jackson | ECON | [place] | | + + + + + | Wes Jackson | ECON | [place], [place] | | + + + + + | Oziel Jackson | ECON | [place], [place] | | + + + + + Care Team Providers + +------+ + | Care Ship Propeller Finisher Name | Role | Phone | + [...] | (Screening) (Log | | | | [place], | [place], | from 06/01/15 till | | | | [place] [address] | [place] [address] | 06/13/15) | | | | [phone] | [phone] | | | | | | | [...] STREET[address] | | | | | | [address] | | | | | | | | +--------+---------+ + + + | 11/21/ | Office | Cardiology | Yesi, | | | 2020 | Visit | | JOSE ALBERTO Linder [address] | | | | | | [place], | | | | | | [place] [address] | | | | | | [phone] | | | | | | | | +--------+---------+ + + + documented as of this encounter Visit Diagnoses + + | Diagnosis | + + | Essential hypertension - Primary Unspecified essential hypertension | + + documented in this encounter"
--- OUTSIDE RECORDS SUMMARY | ~2019-05-18 | XMS | Encounter Summary ---
Demographics + + + | Address | [address] | | | [place] [address] | + + + | Home Phone [...] | Author | [facility] | | | and Ohana | + + + | Organization | [facility] | [...] | | | | | [place] [address] | | + + + + + | Hunter Jackson | ECON | [place] | | + + + + + | Wes Jackson | ECON | [place], [place] | | + + + + + | Oziel Jackson | ECON | [place], [place] | | + + + + + Care Team Providers + +------+ + | Care Branch Maker Name | Role | Phone | [...] + + | 01/25/ | Telephone | [facility] | Rodolfo Cruz, | Medication Refill | | 2013 | | MEDICINE [facility] [address] | [address] | | | | | [place] | [place] [address] | | | | | [place] [address] | [address] | | | | | [phone] | | | +--------+ + + + [...] STREETER | | | | | | [address] | | | | | | | | +--------+---------+ + + + | 11/21/ | Office | Cardiology | Yesi, | | | 2019 | Visit | | JOSE ALBERTO Linder [address] | | | | | | [place] | | | | | | [place] [address] | | | | | | [phone] | | | | | | | | +--------+---------+ + + + documented as of this encounter Visit Diagnoses + + | Diagnosis | + + | Back pain - Primary Backache, unspecified | + + documented in this encounter"
--- OUTSIDE RECORDS SUMMARY | ~2019-05-18 | XMS | Encounter Summary ---
Demographics + + + | Address | [address] | | | [place] [address] | + + + | Home Phone [...] | Author | [facility] | | | and Ohana | + + + | Organization | [facility] [...] | | | | | [place] [address] | | + + + + + | Hunter Jackson | ECON | [place] | | + + + + + | Wes Jackson | ECON | [place], [place] | | + + + + + | Oziel Jackson | ECON | [place], [place] | | + + + + + Care Team Providers + +------+ + | Care Youth Services Librarian Name | Role | Phone | [...] | +--------+ + + + + | 09/15/ | Emergency | [facility] | Stanislav Michele, | Thoracic sprain and | | 2013 | | MED CTR EMERGENCY | [address] | beto, initial | | | | CENTER [address] | [place] [address] | encounter (Primary | | | | [place] | [address] | Dx) | | | | [address] | | | | | | [phone] | | | +--------+ + + + [...] + + + | Blood Pressure | 160/70 | 09/15/2013 9:25 AM | | | | | PDT | | + + + + + | Pulse | 70 | 09/15/2013 9:25 AM | | | | | PDT | | + + + + + | Temperature | 36.4 C (97.6 F) | 09/15/2013 9:25 AM | | | | | PDT | | + + + + + | Respiratory Rate | 18 | 09/15/2013 9:25 AM | | | | | PDT | | + + + + + | Oxygen Saturation | 99% | 09/15/2013 9:25 AM | | | | | PDT | | + + + + + | Inhaled Oxygen | - | - | | | Concentration | | | | + + + + + | Weight | 93.4 kg (206 lb) | 09/15/2013 9:25 AM | | | | | PDT | | + + + + + | Height | 165.1 cm (5' 5") | 09/15/2013 9:25 AM | | | | | PDT | | + + + + + | Body Mass Index | 34.28 | 09/15/2013 9:25 AM | | | | | PDT | | + + + + + documented in this encounter Discharge Instructions AttachmentsThe following attachments cannot be sent through Care Everywhere.THORACIC STRAIN (MOZAMBICAN)documented in this encounter Medications at Time of [...] | | Take 1 tablet by | 12 | 0 | 09/16/19 | | | HYDROcodone-acetamin | mouth every [...] [address]RE[address] | | | | | | [address] | | | | | | | | +--------+---------+ + + + | 11/21/ | Office | Cardiology | Yesi, | | | 2019 | Visit | | JOSE ALBERTO Linder [address] | | | | | | [place], | | | | | | [place] [address] | | | | | | [phone] | | | | | | | | +--------+---------+ + + + documented as of this encounter Procedures + +--------+ + + + | Procedure Name | Priori | Date/Time | Associated Diagnosis | Comments | | | ty | | | | + +--------+ + + + | XR THORACIC SPINE 2 | STAT | 09/15/2013 | | Results for this | | VW | | 10:00 AM | | procedure are in the | | | | PDT | | results section. | + +--------+ + + + documented in this encounter Results XR Thoracic Spine 2 Vw (09/15/2013 10:00 AM PDT) + + | Specimen | + + | | + + + + + | Narrative | Performed At | + + + | THORACIC SPINE: 09/15/2013 9:54 AM CLINICAL HISTORY: BACK PAIN | MISCELANIOUS | | COMPARISON: None FINDINGS: AP, lateral and swimmer's views of the | LAB | | thoracic spine are reviewed. Thoracic spine shows normal alignment. | | | Vertebral body heights are normally maintained with no compression | | | deformities. Disc interspaces appear normal. Little in the way of | | | bony degenerative changes seen. There is mild osteopenia. No adjacent | | | abnormalities are seen IMPRESSION - Mild osteopenia. No focal | | | abnormality of the thoracic spine. Dictated and Signed by: William | | | MD Denys Electronically signed: 09/15/2013 1:05 PM | | + + + + + | Procedure Note | + + | Remington, Rad Results In - 09/15/2013 1:08 PM PDT THORACIC SPINE: 09/15/2013 9:54 AM | | | | CLINICAL HISTORY: BACK PAIN | | | | COMPARISON: None | | | | FINDINGS: AP, lateral and swimmer's views of the thoracic spine are reviewed. | | Thoracic spine shows normal alignment. Vertebral body heights are normally | | maintained with no compression deformities. Disc interspaces appear normal. | | Little in the way of bony degenerative changes seen. There is mild osteopenia. | | No adjacent abnormalities are seen | | | | IMPRESSION - Mild osteopenia. No focal abnormality of the thoracic spine. | | | | Dictated and Signed by: Wliliam Mcfarlane MD | | Electronically signed: 09/15/2013 1:05 PM | + + + +---------+ + + | Performing | Address | City/State/Zipcode | Phone Number | | Organization | | | | + +---------+ + + | MISCELLANEOUS LAB | | | [phone] | + +---------+ + + | MISCELANIOUS LAB | | | [phone] | + +---------+ + + documented in this encounter Visit Diagnoses + + | Diagnosis | + + | Thoracic sprain and strain, initial encounter - Primary | + + documented in this encounter
--- OUTSIDE RECORDS SUMMARY | ~2019-05-18 | XMS | Encounter Summary ---
Demographics + + + | Address | [address] | | | [place] [address] | + + + | Home Phone [...] + | Author | [facility] | | | and Ohana | + + + | Organization | [facility] | | | [...] | | | | | [place] [address] | | + + + + + | Hunter Jackson | ECON | [place] | | + + + + + | Wes Jackson | ECON | [place], [place] | | + + + + + | Oziel Jackson | ECON | [place], [place] | | + + + + + Care Team Providers + +------+ + | Care Rebar Fabricator Name | Role | Phone | [...] | Rodolfo Reilly MD | [address] | | | | | sprain and | [address] | [place], | | | | | strain, | [address]VE [place] | [place] | | | | | initial | [place], [place] | [address] | | | | | encounter | [address] | Phone: | | | | | Procedures | Phone: | [phone] | | | | | MRI Thoracic | [phone] | Fax: | | | | | Spine wo | Fax: | [phone] | | | | | Contrast | [phone] | | +--------+--------+ + + + + [...] | Rodolfo Reilly MD | [address] | | | | | sprain and | [address] | [place], | | | | | strain, | [address]VE [place] | [place] | | | | | initial | [place], [place] | [address] | | | | | encounter | [address] | Phone: | | | | | Procedures | Phone: | [phone] | | | | | MRI Thoracic | [phone] | Fax: | | | | | Spine wo | Fax: | [phone] | | | | | Contrast | [phone] | | +--------+--------+ + + + + Encounter Details +--------+ + + + + | Date | Type | Department | Care Team | Description | +--------+ + + + + | 10/26/ | Hospital | [facility] | Rodolfo Cruz, | Thoracic sprain and | | 2013 | Encounter | MED CTR MRI [address] | strain, initial | | | | [place], | [place], [place] | encounter | | | | [place] [address] | [address] | | | | | [phone] | | | +--------+ + + + [...] [place] | | | | | | [address] | | | | | | | | +--------+---------+ + + + | 11/21/ | Office | Cardiology | Yesi, | | | 2019 | Visit | | JOSE ALBERTO Linder [address] | | | | | | [place], | | | | | | [place] [address] | | | | | | [phone] | | | | | | | [...] | | | limitations of the large [id number]-gl-cyul sagittal images provided. | | | Cervical [...] noted at the base of the right [id number] process. A 3.1 cm rounded | | region of heterogeneously decreased [id number] is noted in the left humeral head [...] for limitations of the large | | jtvcy-uv-dkng sagittal imagesprovided. Cervical neural foramina are not [...] + | MISCELLANEOUS LAB | | | [phone] | + +---------+ + + | MISCELANIOUS LAB | | | [phone] | + +---------+ + + documented in this encounter Visit Diagnoses + + | Diagnosis | + + | Thoracic sprain and strain, initial encounter | + + documented in this encounter"
--- OUTSIDE RECORDS SUMMARY | ~2019-05-18 | XMS | Encounter Summary ---
Demographics + + + | Address | [address] | | | [place] [address] | + + + | Home Phone [...] Author | [facility] | | | and [place]ana | + + + | Organization | [facility] | [...] | | | | | [place] [address] | | + + + + + | Hunter Jackson | ECON | [place] | | + + + + + | Wes Jackson | ECON | [place], [place] | | + + + + + | Oziel Jackson | ECON | [place], [place] | | + + + + + Care Team Providers + +------+ + | Care Collections Agent Name | Role | Phone | [...] Description | +--------+--------+ + + + | 09/03/ | Refill | [facility] | Rodolfo Cruz, | Medication Refill | | 2012 | | MEDICINE [address] | [address] | | | | | [place] | [place] [address] | | | | | [place] [address] | [address] | | | | | [phone] | | | +--------+--------+ + + + [...] | | | | | | [place] [address] | | | | | | [phone] | | | | | | | | +--------+---------+ + + + documented as of this encounter Visit Diagnoses + + | Diagnosis | + + | Hypertension - Primary Unspecified essential hypertension | + + documented in this encounter"
--- OUTSIDE RECORDS SUMMARY | ~2019-05-18 | XMS | Encounter Summary ---
Demographics + + + | Address | [address] | | | [place] [address] | + + + | Home Phone [...] | Author | [facility] | | | and [place]ana | + + + | Organization | [facility] | | [...] [place] | | | | | [place] [address] | | + + + + + | Hunter Jackson | ECON | [place] | | + + + + + | Wes Jackson | ECON | [place], [place] | | + + + + + | Oziel Jackson | ECON | [place], [place] | | + + + + + Care Team Providers + +------+ + | Care Winery Cellar Hand Name | Role | Phone | + +------+ + | Kellie Gunderson | PCP | | + +------+ + Encounter Details +--------+ + + + + | Date | Type | Department | Care Team | Description | +--------+ + + + + | 07/02/ | Hospital | [facility] | [place], | Coronary artery | | 2018 | Encounter | MED CTR ULTRASOUND | JOSE ALBERTO Linder [address] | disease involving | | | | [address] [place] | [place], | salt river coronary | | | | [place], [place] | [place] [address] | artery of [place] river | | | | [address] | [phone] | heart with unstable | | | | [phone] | | angina pectoris | | | | | Bertha Dewitt | ([facility]) | | | | | M, Technologist | | +--------+ + + + [...] mg by mouth | | 0 | /08/29 | | | (PRILOSEC) 20 mg | [...] | | | | | | [place] [address] | | | | | | [phone] | | | | | | | | +--------+---------+ + + + documented as of this encounter Procedures + +--------+ + + + | Procedure Name | Priori | Date/Time | Associated Diagnosis | Comments | | | ty | | | | + +--------+ + + + | VAS SEGMENTAL | Routin | 07/02/2017 | Coronary artery | Results for this | | PRESSURES LEGS | e | 2:26 PM | disease involving | procedure are in the | | | | PST | [place] coronary | results section. | | | | | artery of [place] | | | | | | heart with unstable | | | | | | angina pectoris | | | | | | (HCC) | | + +--------+ + + + documented in this encounter Results VAS Segmental Pressures Legs [...] pressures of lower | | | extremities. [facility] Greater than 1.4: | | | [...] pressures of lower extremities. 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
--- OUTSIDE RECORDS SUMMARY | ~2019-05-18 | XMS | Encounter Summary ---
Demographics + + + | Address | [address] | | | [place] [address] | + + + | Home Phone [...] [facility] | | | and [place] | + + + | Organization | [facility] [...] | | | | | [place] [address] | | + + + + + | Hunter Jackson | ECON | [place] | | + + + + + | Wes Jackson | ECON | [place], [place] | | + + + + + | Oziel Jackson | ECON | [place], [place] | | + + + + + Care Team Providers + +------+ + | Care Therapeutic Strategy Lead Name | Role | Phone [...] | Back pain | | [address] | | | | | Hypothyroidi | | [place], | | | | | sm | | [place] | | | | | Hypertension | | [address] | | | | | Asthma GI | | Phone: | | | | | bleed | | [phone] | | | | | Troponin | | Fax: | | | | | level | | [phone] | | | | | elevated | [...] + + | 11/03/ | Hospital | [facility] | Stanislav Michele, | GI bleed (Primary | | 2013 - | Encounter | [facility] | [address] | Dx); Troponin level | | | | [address] | [place] | elevated; Back pain; | | 11/05/ | | [place] [address] | [id number] | Asthma; | | 2013 | | [phone] | | Hypertension; | | | | | Carranza, Yoel F, MD | Thoracic sprain and | | | | | [address] | strain, subsequent | | | | | [place], [place] | encounter; | | | | | [address] | Hypothyroidism; | | | | | [...] problems to display. 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 [DISCONTINUED] [facility] GARLIC OIL PO CAPS Take 1250 mg by mouth daily. [DISCONTINUED] diclofenac (VOLTAREN) 75 mg EC tablet TAKE ONE TABLET BY MOUTH TWICE A D AY 180 tablet 1 [DISCONTINUED] Hbgernakuhx-Bakpwwrqz-Mia C-Mn ([facility] GLUCOSAMINE-CHONDROITIN) TABS Take 1 tablet by mouth 2 times daily. [DISCONTINUED] KRILL OIL 1000 MG CAPS Take 1,000 mg by mouth Daily. [DISCONTINUED] metaxalone (SKELAXIN) 800 mg tablet Take 800 mg by mouth 3 times daily. 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 Got total 4 PRBC Troponin I above reference range EKG without ischemia. Mild troponin leak but well below threshold for CO. Echo EF 63%, no sig change versus [...] Mamogram and UPEP and Stress Test with bed control specialist OK to restart baby ASA NOT restart [...] appt) Contact information: [address] [facility] [address] Follow up with JOSE ALBERTO Marcelo. (Have Dr Cruz arrange an appt to see her in about a month from now) Contact information: [address], [place] [address] [facility] [address] Condition: Patient being discharged with condition improved Dr Pandya recommends double dose of PPI for 1 month then single dose Thus Prilosec 20 mg bid X 1 month then can lower to 20 mg daily Diet: Regular Greater than 30 minutes were spent on discharge and coordination of post-hospital care. Electronically signed by: Yoel Carranza MD, 11/05/2013 13:26 [facility] Portions of this chart may have been created with Blokify voice recognition software. Occasi onal wrong-word or [...] Jackson : 1935: Age: 78 y.o. MedRec: [id number] Admission date: 11/03/2013 Hospital day # : [...] injection 40 mg 40 mg Intravenous BID oYel Carranza MD 40 mg at 11/05/13 0844 [...] -- No results found for this basename: PHART:3,PO2ART:3,UHQ4ACO:3,JEI7ZJH:3,BEART:3,F4YOJSOG:3 in the last 168 hours No results found for this basename: SPECSOURCE:3,PHPOCB:3,MDNKV8KD:3,KDBE3QW:3,HCO3:3,TCO2: 3,BEART:3,BE:3,BZVL9REE:3 in the last 168 hours Point of [...] troponin leak but well below threshold for CO. Echo EF 63%, no sig change versus [...] Mamogram and UPEP and Stress Test with bed control specialist OK to restart baby ASA NOT restart Voltaren Advise appt with Merissa in GI clinic in about 1 month. Yoel Carranza MD 11/05/2013 13:14 [facility] Dot phrase reference: VSHOSP (VS in table, last 24 hours) MEYLAB (various labs to pull in) DT (date and time) LABRCNTIP[K:3,Na:3 (last 3 sets of labs using potassium and sodium as examples) HGB HCT PLT INR GLU POCGLU Na K BUN CREA, CALCIUM TROPONINI BNP DIGOXIN DDIMERQUANT Portions of this chart may have been created with Blokify voice recognition software. Occasi onal wrong-word or [...] 1 unit of PRBC transfused without reaction. [place] 1 tab given for lower back pain w ith good relief of pain. No active bleeding noted. odolfo Montes RRT - 11/04/2013 9:15 AM PDTPt not in roomEle ctronically signed by Rodolfo Montes RRT at 11/04/2013 2:44 PM Yoel Plaza MD - 7:17 AM PDT [facility] PROGRESS NOTE Patient: Soumya Jackson : 1935: Age: 78 y.o. MedRec: [id number] Admission date: 11/03/2013 Hospital day # : [...] -- No results found for this basename: PHART:3,PO2ART:3,RJE9USY:3,QAW2LJK:3,BEART:3,U3AQEZBK:3 in the last 168 hours No results found for this basename: SPECSOURCE:3,PHPOCB:3,HRUIH0TR:3,QEYR3VG:3,HCO3:3,TCO2: 3,BEART:3,BE:3,QMDI7IIR:3 in the last 168 hours Point of [...] troponin leak but well below threshold for CO. Echo EF 63%, no sig change versus [...] labs though) Yoel Carranza MD 11/04/2013 7:17 [facility] Dot phrase reference: VSHOSP (VS in table, last 24 hours) MEYLAB (various labs to pull in) DT (date and time) LABRCNTIP[K:3,Na:3 (last 3 sets of labs using potassium and sodium as examples) HGB HCT PLT INR GLU POCGLU Na K BUN CREA, CALCIUM TROPONINI BNP DIGOXIN DDIMERQUANT Portions of this chart may have been created with Blokify voice recognition software. Occasi onal wrong-word or [...] [facility] | | | | | | [id number] | | | | | | | | +--------+---------+ + + + | 11/21/ | Office | Cardiology | Yesi, | | | 2019 | Visit | | JOSE ALBERTO Linder [address] | | | [address] [place], | | | | | | [place] [address] | | | | | | [phone] | | | | | | | [...] + | MISCELLANEOUS LAB | | | [phone] | + +---------+ + + | MISCELANIOUS LAB | | | [phone] | + +---------+ + + CBC with [...] | | Eosinophils | | | [facility] | | | | | | MEDICAL [...] + | [facility] | [address] | [place] | [phone] | | [facility] | | [address] | | | - LABORATORY | | | | + + + + + | [facility] | [address] | [place] | | | [facility] | | [address] | | | - LABORATORY | | [...] | 0.64 | 0.60 - 1.30 | [facility] | | | | | mg/dL | [facility] | | | | | | MEDICAL | | | | | | CENTER - | | | | | | LABORATORY | | + + + + + + | eGFR if not | >60Comment: GLOMERULAR | >=60 | [facility] | | | | FILTRATION | mL/min/1.73m2 | [facility] | | | [place] | RATE,ESTIMATED | | MEDICAL | | | | mL/min/1.92e9Vwtr than | | CENTER - | | [...] + | [facility] | [address] | [place] | [phone] | | [facility] | | [address] | | | - LABORATORY | | | | + + + + + | [facility] | [address] | [place], [place] | | | [facility] | | [address] | | | - LABORATORY | | [...] + + + | UNIT # | [id number] | | [facility] | | | | [...] ST. | [address] | [place], [place] | | | [facility] | | [address] | | | - BLOOD BANK | [address] | [place] | [phone] | | [facility] | | [address] | | | - LABORATORY | | | | + + + + + | [facility] | [address] | [place] | | | [facility] | | [address] | | | - LABORATORY | | [...] + + + | UNIT # | [id number] | | [facility] | | | | [...] St | [place] | | | [facility] | | [address] | | | - BLOOD BANK | | | | + + + + + EGD (11/04/2013 8:39 AM PDT) + + | Specimen | + + | | + + + + -+ | Narrative | Performed At | + + -+ | | [facility] | | GastroenterologyPatient Name: Soumya Grimes Date: 11/04/2013 8:39 | [facility] | | AMN: [id number] #: [id number] of : [id number] | | | Type: InpatientAge: 78Room: [facility] 02Gender: FemaleNote Status: | | [...] the nurse | | | and the collision repair technician in the 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 Mental Status [...] | 0Note Initiated On: 11/04/2013 8:39 AM [facility] | | | [facility], [address] [place] [address] | | | [phone] | | | - Non-bleeding erosive gastropathy. [...] On: 11/04/2013 8:39 AM | | | [facility], [address] [place] [address] | | | [phone] | | + + -+ + + [...] + + + | UNIT # | [id number] | | [facility] | | | | [...] St | [place] | | | [facility] | | [address] | | | - BLOOD BANK | [...] + | [facility] | [address] | [place] | [phone] | | [facility] | | [address] | | | - LABORATORY | | | | + + + + + | [facility] | [address] | [place] | | | [facility] | | [address] | | | - LABORATORY | | [...] + | [facility] | [address] | [place] | [phone] | | [facility] | | [address] | | | - LABORATORY | | | | + + + + + | [facility] | [address] | [place] | | | [facility] | | [address] | | | - LABORATORY | | [...] + | [facility] | [address] | [place] | [phone] | | [facility] | | [address] | | | - LABORATORY | | | | + + + + + | [facility] | [address] | [place] | | | [facility] | | [address] | | | - LABORATORY | | [...] 0.59 (L) | 0.60 - 1.30 | [facility] | | | | | mg/dL | [facility] | | | | | | MEDICAL | | | | | | CENTER - | | | | | | LABORATORY | | + + + + + + | eGFR if not | >60Comment: GLOMERULAR | >=60 | [facility] | | | | FILTRATION | mL/min/1.73m2 | [facility] | | | [place] | RATE,ESTIMATED | | MEDICAL | | | | mL/min/1.78e4Meef than | | CENTER - | | [...] + | [facility] | [address] | [place], [place] | [phone] | | [facility] | | [address] | | | - LABORATORY | | | | + + + + + | [facility] | [address] | [place], [place] | | | [facility] | | [address] | | | - LABORATORY | | [...] + + + | UNIT # | [id number] | | [facility] | | | | [...] + | [facility] | [address] | [place] | | | [facility] | | [address] | | | - BLOOD BANK | [...] + + | Performing | Address | [facility] | Phone Number | | Organization | | | | + + + + + | [facility] | [address] | [place] | [phone] | | [facility] | | [address] | | | - LABORATORY | | | | + + + + + | [facility] | [address] | [place] | | | [facility] | | [address] | | | - LABORATORY | | [...] | | | | | | [employer] | | | | | [...] + | [facility] | [address] | [place] | [phone] | | [facility] | | [address] | | | - LABORATORY | | | | + + + + + | [facility] | [address] | [place], [place] | | | [facility] | | [address] | | | - LABORATORY | | [...] [address] | [place] | [phone] | | [facility] | | [address] | | | - LABORATORY | | | | + + + + + | [facility] | [address] | [place] | | | [facility] | | [address] | | | - LABORATORY | | [...] | | | | | | [employer] | | | | | [...] + | [facility] | [address] | [place], [place] | [phone] | | [facility] | | [address] | | | - LABORATORY | | | | + + + + + | [facility] | [address] | [place], [place] | | | [facility] | | [address] | | | - LABORATORY | | [...] + | [facility] | [address] | [place] | [phone] | | [facility] | | [address] | | | - LABORATORY | | | | + + + + + | [facility] | [address] | [place] | | | [facility] | | [address] | | | - LABORATORY | | [...] + | [facility] | [address] | [place] | [phone] | | [facility] | | [address] | | | - LABORATORY | | | | + + + + + | [facility] | [address] | [place] | | | [facility] | | [address] | | | - LABORATORY | | [...] | | | | | | [employer] | | | | | [...] + | [facility] | [address] | [place] | [phone] | | [facility] | | [address] | | | - LABORATORY | | | | + + + + + | [facility] | [address] | [place], [place] | | | [facility] | | [address] | | | - LABORATORY | | [...] + | [facility] | [address] | [place] | [phone] | | [facility] | | [address] | | | - LABORATORY | | | | + + + + + | [facility] | [address] | [place] | | | [facility] | | [address] | | | - LABORATORY | | | | + + + + + ECHO Complete (11/03/2013 12:00 PM PDT) + + | Specimen | + + | | + + + + + | Narrative | Performed At | + + + | [facility] ECHOCARDIOGRAM REPORT | | | STUDY [...] Carito Maher MD PhD | | | [facility] 11/03/2013 12:17 Cna Pct: Merlin Dolan, | | | RDMS | | + + + + + | Procedure Note | + + | Ric Maher MD - 11/03/2013 6:59 PM [facility] | | CENTERECHOCARDIOGRAM REPORTSTUDY DATE: 11/03/2013PATIENT NAME: Soumya Daniels: | | 1935MRN: [id number]: Rodolfo Cruz [facility] H[facility]ORY/DIAGNOSIS: Elevated | | troponinA transthoracic echocardiogram [...] PP mmHgLA volume: 54 mLLA index: 28 mL/o2Jmbvvm Inflow DT: | | 284 msIVRT: 88 msValsalva: Not neededPWDTI S wave: 8.0 cm/sPWDTI E wave: 6.8 | | cm/sPWDTI A wave: 14.8 cm/sE/A Ratio: 0.46E/E Ratio: 19.52Signed by: Carito Solorio | | MD Nika PhD FACC 11/03/2013 12:17 Cna Pct: Merlin Dolan RDMS | |Tricuspid valve: normal [...] 11/03/2013 12:17 | | | | | |Cna Pct: Merlin Dolan RDMS | + + Protein [...] + | [facility] | [address] | [place], [place] | [phone] | | [facility] | | [address] | | | - LABORATORY | | | | + + + + + | [facility] | [address] | [place], [place] | | | [facility] | | [address] | | | - LABORATORY | | [...] | 1.015 | | | | | [place], | | | | | | UA, [...] + | [facility] | [address] | [place], [place] | | | [facility] | | [address] | | | - BLOOD BANK | [...] + | MISCELLANEOUS LAB | | | [phone] | + +---------+ + + | MISCELANIOUS LAB | | | [phone] | + +---------+ + + Troponin I [...] | | | | | | [employer] | | | | | [...] + | [facility] | [address] | [place], [place] | [phone] | | [facility] | | [address] | | | - LABORATORY | | | | + + + + + | [facility] | [address] | [place], [place] | | | [facility] | | [address] | | | - LABORATORY | | [...] | 0.66 | 0.60 - 1.30 | [facility] | | | | | mg/dL | [facility] | | | | | | MEDICAL | | | | | | CENTER - | | | | | | LABORATORY | | + + + + + + | eGFR if not | >60Comment: GLOMERULAR | >=60 | [facility] | | | | FILTRATION | mL/min/1.73m2 | [facility] | | | [place] | RATE,ESTIMATED | | MEDICAL | | | | mL/min/1.92e9Ladb than | | CENTER - | | [...] + | [facility] | [address] | [place] | [phone] | | [facility] | | [address] | | | - LABORATORY | | | | + + + + + | [facility] | [address] | [place] | | | [facility] | | [address] | | | - LABORATORY | | [...] + | [facility] | [address] | [place], [place] | [phone] | | [facility] | | [address] | | | - LABORATORY | | | | + + + + + | [facility] | [address] | [place], [place] | | | [facility] | | [address] | | | - LABORATORY | | [...] | | +---+---+ + +-------+ +---------+---+---+ | [id number]-[id number] | Given | 11/05/19 | 1 spray [...] | | | | | dose on [facility] 11/04/13 at 2300, If | | | [...]
--- OUTSIDE RECORDS SUMMARY | ~2019-05-18 | XMS | Encounter Summary ---
Demographics + + + | Address | [address] | | | [place] [address] | + + + | Home Phone [...] | Author | [facility] | | | and [place] | + + + | Organization | [facility] | | | [...] [place]WA[place] | | | | | [place] [address] | | + + + + + | Hunter Jackson | ECON | [place] | | + + + + + | Wes Jackson | ECON | [place], [place] | | + + + + + | Oziel Jackson | ECON | [place], [place] | | + + + + + Care Team Providers + +------+ + | Care Core Drier Name | Role | Phone | + +------+ + | Gunderson, Kellie PA | PCP | | + +------+ + Reason for Visit + + + | Reason | Comments | + + + | Follow-up | | + + + | Hypertension | | + + + | Coronary Artery | | | Disease | | + + + Encounter Details +--------+---------+ + + + | Date | Type | Department | Care Team | Description | +--------+---------+ + + + | 11/18/ | Office | [facility] | Yesi, | TIA (Primary Dx); | | 2019 | Visit | CARDIOLOGY [address] | JOSE ALBERTO Linder [address] | Valvular heart | | | | [place], | [place], | disease; Epistaxis; | | | | [place] [address] | [place] [address] | Murmur; Essential | | | | [phone] | [phone] | hypertension with | | | | [...] involving | | | | | | [place] coronary | | | | | | artery of [place] | | | | | | heart with unstable | | | | | | angina pectoris | | | | | | ([facility]); Chest pain, | | | | [...] 86.9 kg (191 lb 9.3 | 11/18/2018 10:04 AM | | | | oz) | PDT | | + + + + + | Height | 165.1 cm (5' 5") | 11/18/2018 10:04 AM | | | | | PDT | | + + + + + | Body Mass Index | 31.88 | 11/18/2018 10:04 AM | | | | | PDT | | + + + + + documented in this encounter Patient Instructions Patient Instructions Stefani Onofre, Central Supply Manager - 11/18/2018 10:00 AM PDT1. The cur rent medical regimen is effective; continue present plan and medications. 2. Increasing exercises daily will help increase your energy level and help with the weakne ss. 3.She will follow up in 1 year, or sooner with concerns. documented in this encounter Progress Notes Niyah Key ARNP - 11/18/2018 10:00 AM PDTFormatting of this note might be differen t from the original. PATIENT NAME: Soumya Jackson : 1935: AGE: 83 y.o. PRIMARY CARE: FLORA Morgan OUTPATIENT FOLLOW UP VISIT Date of Service: 11/18/2018 HISTORY OF PRESENT ILLNESS: Soumya Jackson is a 83 y.o. female with a history of coronary artery disease post CABG 3 on 11/01/16, moderate aortic valve insufficiency, essential hypertension, osteoarthritis, h ypothyroidism, dyslipidemia, elevated CRP. She is being seen today for follow up on coronar y artery disease and hypertension. She was last seen 06/01/2018 at which time patient will continue same therapeutic medical re gimen. She will obtain new with isosorbide since it worked very well for the chest pain. S he has been in encouraged to increase her physical activity and exercise more regularly. She will follow up in 6 months for office visit, or sooner with concerns. She will let us know if she has any other issues. Since that time, she had a VAS segmental pressures legs on 07/02/2018. She sent in her blood pressure log by email and was having shaky and fuzzy episodes when her blood pressure would drop. Her amlodipine was decreased to 5 mg once daily and was to start isosorbide mononitra te 30 mg once daily. She has had a fair energy level. She has not been very active, she in going [facility]. She states that she has been very weak with no energy so she does not do any exercises.She has not had any chest pain or discomfort at rest or with exertion. She s till has episodes of shortenss of breath with no changes . She has occasional lightheadednes s when standing quickly, which is unchanged and not bothersome to her. She has not noticed palpitations. She has not had leg swelling. She states that she will have some leg swelling at the end of the day off and on. She is able to sleep laying down at night without any sym ptoms of shortness of breath. She does not have sleep apnea Patient is doing "well" on a c ardiac standpoint. MEDICAL, SURGICAL, AND PERSONAL HISTORY Past Medical, [...] cervical Cervical radiculopathy Coronary artery disease involving [place] coronary artery of [place] heart with unstable angina pectoris Stress hyperglycemia Psychophysiologic insomnia Chest pain CURRENT MEDICATIONS Current Outpatient Medications Medication Sig Dispense Refill amLODIPine (NORVASC) 5 mg tablet Take 1 tablet by mouth Daily. 90 tablet 3 aspirin 81 mg chewable tablet Take 2 [...] isosorbide mononitrate (IMDUR) 30 mg ER tablet TAKE ONE TABLET BY MOUTH DAILY 30 tablet 3 L-Lysine HCl 500 MG [...] Dye Itching ROS Review of Systems Constitutional: Negative. Negative for malaise/fatigue. Respiratory: Positive for shortness of breath. Cardiovascular: Positive for leg swelling. Negative for chest pain and palpitations. Neurological: Positive for weakness. Negative for dizziness. Lightheadedness - Yes Endo/Heme/Allergies: Negative. Does not bruise/bleed easily. OBJECTIVE: PHYSICAL EXAM BP 120/60 | Pulse 56 | Resp 16 | Ht 1.651 m (5' 5") | Wt 86.9 kg (191 lb 9.3 oz) | BMI 31.88 kg/m Physical Exam Constitutional: She is oriented to person, place, and time. She appears well-developed and well-nourished. No distress. Female individual without acute distress here with a friend Neck: Normal carotid pulses, no hepatojugular reflux and no JVD (No JVD) present. Carotid b ruit is not present (Clear). Cardiovascular: Normal rate, regular rhythm, S1 normal, S2 normal, intact distal pulses and normal pulses. PMI is not displaced. Exam reveals no gallop, no S3, no S4 and no friction r ub. Murmur (grade 1/6 holosystolic murmur along left sternal border.) heard. Crescendo-decrescendo mid to late systolic murmur is present with a grade of 3/6 at the ap ex. Pulses: Carotid pulses are 2+ on the right side, and 2+ on the left side. Radial pulses are 2+ on the right side, and 2+ on the left side. Posterior tibial pulses are 2+ on the right side, [...] Musculoskeletal: Normal range of motion. She exhibits no edema. Neurological: She is alert and oriented to person, place, and time. Gait normal. Skin: Skin is warm, dry and intact. Bruising noted. Psychiatric: She has a normal mood and affect. Her speech is normal and behavior is normal. Judgment and thought content normal. Her mood appears not anxious. Cognition and memory are normal. She does not exhibit a depressed mood. Vitals reviewed. ECG: I personally independently reviewed ECG tracing during this visit (interpreted and bree led by another provider): Results for orders placed or performed in visit on 06/01/18 ECG 12 lead Result Value Ref Range INTERPRETATION TEXT Sinus bradycardia Possible Left atrial enlargement Borderline ECG When compared with ECG of 16-OCT-2017 16:23, premature supraventricular complexes are no longer present Nonspecific T wave abnormality no longer evident in Inferior leads T wave inversion less evident in Anterolateral leads Confirmed by CHRISTOPHER SIMMS MD ([id number]) on 06/01/2018 4:18:00 PM LAB RESULTS reviewed during visit today primarily from [facility]: LIPID Lab Results Component Value Date CHOL 218 (H) 09/26/2015 TRIG 98 09/26/2015 HDL 71 09/26/2015 LDL 127 09/26/2015 CHOLHDL 1.9 05/30/2018 LDLEX 125 (A) 05/19/2015 HDLEX 82 05/30/2018 TRIGEX 59 05/30/2018 CHOLEX 158 05/30/2018 CHEMISTRY Lab Results Component Value Date GLU 114 (H) 11/06/2016 GLUEX 101 (A) 10/31/2018 NA 136 11/06/2016 NAEX 134 10/31/2018 K 4.0 11/06/2016 KEX 4.4 10/31/2018 CL 100 11/06/2016 CLEX 97 10/31/2018 CO2 29 (H) 11/06/2016 CO2EX 28 10/31/2018 CALCIUM 8.6 11/06/2016 ALKPHOS 70 11/07/2015 AST 19 11/07/2015 ASTEX 25 10/31/2018 ALT 12 11/07/2015 ALTEX 18 10/31/2018 BILITOT 0.5 11/07/2015 CREA 0.44 (L) 11/06/2016 BUN 7 (L) 11/06/2016 EGFR >60 11/06/2016 EGFREX 92 10/31/2018 CREEX 0.62 (A) 10/31/2018 HEMATOLOGY Lab Results Component Value Date WBC 17.2 (H) 11/04/2016 WBCEX 7.4 10/31/2018 HGB 9.7 (L) 11/04/2016 HGBEX 14.3 10/31/2018 HCT 29.0 (L) 11/04/2016 HCTEX 42.5 10/31/2018 PLT 205 11/04/2016 PLTEX 67.4 (A) 10/31/2018 Lab Results Component Value Date TSH 0.85 09/26/2015 TSHEX 3.00 10/31/2018 BNPEX 63 09/18/2016 RESULTS- I reviewed reports from [facility]: VAS segmental pressures legs 07/02/2018: Normal segmental pressures of lower extremities. Above data and testing is reviewed this visit; testing below is historical data unless othe rwise specified. ASSESSMENT: 1. Coronary artery disease A. Seen at [facility] they had EKG and sent her home stating it was GERD B. Seen in the emergency room at [facility] for chest pain. Sh e was schedule for stress test and discharged home. C. Stress Test 05/16/16, is maximal asymptomatic stress test, [facility] er very poor function status, achieving [...] central AI, no , trace TR, trace MS, normal aorta other than mild calcification at [...] 76 % by Christopher Simms MD. K. VAS segmental pressures legs 07/02/2018: Normal segmental pressur es of lower extremities. L. Today, 11/18/2018, she is symptomatic only for generalized weakness and fatigue. She has no angina with exertion or at rest, she does have dyspnea with exertion with no changes, sh e is going to physical therapy once a week, she has been weak and has no energy so she does not do any other exercises. Explained how a little exercises daily will help improve the low energy and weakness. She is on a medical regimen with long acting nitrate, aspirin, ABE-I a nd statin. There are no signs or symptoms of overt congestive heart failure, and her physica l exam shows no significant fluid retention. She is in class II- Symptoms with moderate exe rtion of the [place] [employer] functional class. Heart failure stage A-pre-heart fa ilure . 2. Essential hypertension with goal blood pressure less than 130/80: A. Today, 11/18/2018, her blood pressure is well controlled. She had decreased Amlodipine to 5 mg and started Isosorbide 30 mg. She has been doing "good" with t he changes of medications. 3. Heart murmur due to aortic valve [...] present plan and medications. 2. She will try and increase her exercises to help increase her energy level and weakness. 3. She will follow up in 1 year for office visit, or sooner with concerns. Stefani Hu, Central Supply Manager am acting as a scribe on behalf of, and in the presenc e of JOSE ALBERTO Pham. - Stefani Onofre Central Supply Manager 11/18/2018 10:39 I, JOSE ALBERTO Pham, personally performed the services described in this documentati on, as scribed in my presence and it is both accurate and complete. -JOSE ALBERTO Pham 11/18/2018 Portions of this chart may have been created with [employer] voice recognition software. Occasi onal wrong-word or [...] | | | | | | [place] [address] | | | | | | [phone] | | | | | | | [...] + + | Coronary artery disease involving [place] coronary artery of [place] heart with unstable | | angina pectoris (HCC) | + + | Chest pain, unspecified type | + + documented in this encounter
--- OUTSIDE RECORDS SUMMARY | ~2019-05-18 | XMS | Encounter Summary ---
Demographics + + + | Address | [address] | | | [place] [address] | + + + | Home Phone [...] | Author | [facility] | | | and [place] | + + + | Organization | [facility] | | [...] | | | | | [place] [address] | | + + + + + | Hunter Jackson | ECON | [place] | | + + + + + | Wes Jackson | ECON | [place], [place] | | + + + + + | Oziel Jackson | ECON | [place], [place] | | + + + + + Care Team Providers + +------+ + | Care Senior Oracle Soa Developer Name | Role | Phone | [...] | [address] | | | | | [address] | | | | | | [phone] | | | +--------+--------+ + + + [...] | | | | | | [place] [address] | | | | | | [phone] | | | | | | | | +--------+---------+ + + + documented as of this encounter Visit Diagnoses Not on filedocumented in this encounter"
--- OUTSIDE RECORDS SUMMARY | ~2019-05-18 | XMS | Encounter Summary ---
Demographics + + + | Address | [address] | | | [place] [address] | + + + | Home Phone [...] + | Author | [facility] | | | and [place] | + + + | Organization | [facility] | | | and [place] | + + + | Address | Unknown | + + + | Phone | Unavailable | + + + Support + + + + + | Name | Relationship | Address | Phone | + + + + + | Osmin Jackson | ECON | [address] | | | | | [place] [address] | | + + + + + | Hunter Jackson | ECON | [place] | | + + + + + | Wes Jackson | ECON | [place], [place] | | + + + + + | Oziel Jackson | ECON | [place], [place] | | + + + + + Care Team Providers + +------+ + | Care Android Software Engineer Name | Role | Phone | [...] + + | 09/18/ | Telephone | [facility] | Irina Simms, | Appointment | | 2017 | | CARDIOLOGY [address] | [address] [place] | | | | | [place], | [place], | | | | | [place] [address] | [place] [address] | | | | | [phone] | [phone] | | | | | | | [...] | | | | | | [place] [address] | | | | | | [phone] | | | | | | | | +--------+---------+ + + + documented as of this encounter Visit Diagnoses Not on filedocumented in this encounter"
--- OUTSIDE RECORDS SUMMARY | ~2019-05-18 | XMS | Encounter Summary ---
Demographics + + + | Address | [address] | | | [place] [address] | + + + | Home Phone [...] | [facility] | | | and [place] | + + + | Organization | [facility] | [...] | | | | | [place] [address] | | + + + + + | Hunter Jackson | ECON | [place] | | + + + + + | Wes Jackson | ECON | [place], [place] | | + + + + + | Oziel Jackson | ECON | [place], [place] | | + + + + + Care Team Providers + +------+ + | Care Mixer Operator Name | Role | Phone | [...] + + + + | 10/27/ | Telephone | [facility] | Rodolfo Cruz, | Results | | 2013 | | MEDICINE [facility] [address] | [address] | | | | | [place] | [place] [address] | | | | | [place] [address] | [address] | | | | | [phone] | | | +--------+ + + + [...] STREETER | | | | | | [address] | | | | | | | | +--------+---------+ + + + | 11/21/ | Office | Cardiology | Yesi, | | | 2019 | Visit | | JOSE ALBERTO Linder [address] | | | | | | [place], | | | | | | [place] [address] | | | | | | [phone] | | | | | | | | +--------+---------+ + + + documented as of this encounter Visit Diagnoses Not on filedocumented in this encounter"
--- OUTSIDE RECORDS SUMMARY | ~2019-05-18 | XMS | Encounter Summary ---
Demographics + + + | Address | [address] | | | [place] [address] | + + + | Home Phone [...] | [facility] | | | and [place] | + + + | Organization | [facility] | | [...] | | | | | [place] [address] | | + + + + + | Hunter Jackson | ECON | [place] | | + + + + + | Wes Jackson | ECON | [place], [place] | | + + + + + | Oziel Jackson | ECON | [place], [place] | | + + + + + Care Team Providers + +------+ + | Care Cd Manufacturing Supervisor Name | Role | Phone | [...] Chronic low | Yany, | [address] | | | | | back pain | Velvet, | [place], | | | | | DDD | PA-C [address] | [place] | | | | | (degenerativ | [address] | [address] | | | | | e disc | [place] | Phone: | | | | | disease), | [address] | [phone] | | | | | lumbar | Phone: | Fax: | | | | | Procedures | [phone] | [phone] | | | | | MRI Lumbar | Fax: | | | | | | Spine wo | [phone] | | | | | | Contrast [...] back pain (Primary | | | | [place], | [address] [place], | Dx); Chronic low | | | | [place] [address] | [place] [address] | back pain; DDD | | | | [phone] | [phone] | (degenerative disc | | | | [...] 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 | | multiplanar, multisequence imaging of [...] [address] | [place] | [phone] | | [facility] | | [address] | | | - IMAGING | | [...]
--- OUTSIDE RECORDS SUMMARY | ~2019-05-18 | XMS | Encounter Summary ---
Demographics + + + | Address | [address] | | | [place] [address] | + + + | Home Phone [...] [facility] | | | and [place] | + + + | Organization | [facility] | | | [...] | | | | | [place] [address] | | + + + + + | Hunter Jackson | ECON | [place] | | + + + + + | Wes Jackson | ECON | [place], [place] | | + + + + + | Oziel Jackson | ECON | [place], [place] | | + + + + + Care Team Providers + +------+ + | Care Manager Internet Name | Role | Phone | + [...] | 11/06/ | Refill | [facility] | Rodolfo Cruz, | Medication Refill | | 2016 | | MEDICINE [address] | [address] | | | | | [place] | [place] [address] | | | | | [place] [address] | [address] | | | | | [phone] | | | +--------+--------+ + + + [...] | | | | | | [place] [address] | | | | | | [phone] | | | | | | | | +--------+---------+ + + + documented as of this encounter Visit Diagnoses + + | Diagnosis | + + | Hyperglycemia - Primary Other abnormal glucose | + + documented in this encounter"
--- OUTSIDE RECORDS SUMMARY | ~2019-05-18 | XMS | Encounter Summary ---
Demographics + + + | Address | [address] | | | [place] [address] | + + + | Home Phone [...] | [facility] | | | and [place] | + + + | Organization | [facility] [...] | | | | | [place] [address] | | + + + + + | Hunter Jackson | ECON | [place] | | + + + + + | Wes Jackson | ECON | [place], [place] | | + + + + + | Oziel Jackson | ECON | [place], [place] | | + + + + + Care Team Providers + +------+ + | Care Political Worker Name | Role | Phone | [...] | [address] | | | | | [address] | | | | | | [phone] | | | +--------+--------+ + + + [...] | | | | | | [place] [address] | | | | | | [phone] | | | | | | | | +--------+---------+ + + + documented as of this encounter Visit Diagnoses + + | Diagnosis | + + | Hypothyroidism - Primary Unspecified hypothyroidism | + + documented in this encounter"
--- OUTSIDE RECORDS SUMMARY | ~2019-05-18 | XMS | Encounter Summary ---
Demographics + + + | Address | [address] | | | [place] [address] | + + + | Home Phone [...] Author | [facility] | | | and [place] | + + + | Organization | [facility] | | [...] [place] | | | | | [place] [address] | | + + + + + | Hunter Jackson | ECON | [place] | | + + + + + | Wes Jackson | ECON | [place], [place] | | + + + + + | Oziel Jackson | ECON | [place], [place] | | + + + + + Care Team Providers + +------+ + | Care Invertebrate Paleontologist Name | Role | Phone | + +------+ + | Gunderson, Kellie PA | PCP | | + +------+ + Encounter Details +--------+ + + + + | Date | Type | Department | Care Team | Description | +--------+ + + + + | 10/16/ | Hospital | [facility] | Irina Simms, | Chest pain due to | | 2017 | Encounter | MED CTR CV INTRA OP | [address] | myocardial ischemia, | | | | [address] | [place], | unspecified | | | | [place], [place] | [place] [address] | ischemic chest pain | | | | [address] | [phone] | type (HCC) | | | | [phone] | | | +--------+ + + + [...] You cannot be awakened Date Last Reviewed: 02/27/201619998153-1568 [employer]. [address] [place] [address], [place] [address]. All righ ts reserved. This information is [...] by your healthcare provider Date Last Reviewed: 07/07/201319995901-6248 [employer]. [address] [place] [address], [place] [address]. All righ ts reserved. This information is [...] STREETER | | | | | | [address] | | | | | | | | +--------+---------+ + + + | 11/21/ | Office | Cardiology | Yesi | | | 2019 | Visit | | JOSE ALBERTO Linder [address] | | | | | | [place] | | | | | | [place] [address] | | | | | | [phone] | | | | | | | [...] (1935) OF PROCEDURE: | | | 10/16/2016 TELEPHONE INFORMATION CLERK: Irina Simms MD PROCEDURES | | | [...]
--- OUTSIDE RECORDS SUMMARY | ~2019-05-18 | XMS | Encounter Summary ---
Demographics + + + | Address | [address] | | | [place] [address] | + + + | Home Phone [...] Author | [facility] | | | and [place] | + + + | Organization | [facility] [...] | | | | | [place] [address] | | + + + + + | Hunter Jackson | ECON | [place] | | + + + + + | Wes Jackson | ECON | [place], [place] | | + + + + + | Oziel Jackson | ECON | [place], [place] | | + + + + + Care Team Providers + +------+ + | Care Perfect Binder Feeder Offbearer Name | Role | Phone | + +------+ + | Rodolfo Cruz MD | PCP | | + +------+ + Encounter Details +--------+---------+ + + + | Date | Type | Department | Care Team | Description | +--------+---------+ + + + | 10/29/ | Office | [facility] | Ulysses Jensen, | [facility] arthritis | | 2012 | Visit | ORTHOPEDIC SURGERY | [address] [facility] | (Primary Dx) | | | | [address] [place] [address] | [place], [place] | | | | | [place], [place] | [address] | | | | | [address] | | | | | | [phone] | | | +--------+---------+ + + + [...] | | | | | | [place] [address] | | | | | | [phone] | | | | | | | [...] | | | | | Infiltration, ONCE, [facility] 10/29/12 | | AM PDT | | [...] | | | | ONCE, [facility] 10/29/12 at 1130, For 1 | | | | | | | dose, Shake well. Not for IV | | | | | | | use., | | | | | | + +-------+ +-------+---+---+ +---+---+ | | | +---+---+ documented in this encounter"
--- OUTSIDE RECORDS SUMMARY | ~2019-05-18 | XMS | Encounter Summary ---
Demographics + + + | Address | [address] | | | [place] [address] | + + + | Home Phone [...] | [facility] | | | and [place]ana | + + + | Organization | [facility] & [...] | | | | | [place] [address] | | + + + + + | Hunter Jackson | ECON | [place] | | + + + + + | Wes Jackson | ECON | [place], [place] | | + + + + + | Oziel Jackson | ECON | [place], [place] | | + + + + + Care Team Providers + +------+ + | Care Senior Software Qa Analyst Name | Role | Phone | [...] + + | 09/20/ | Emergency | [facility] | Diogenes Gray, | Thoracic | | 2013 | | MED CTR EMERGENCY | [address] | radiculopathy | | | | BRONX [address] | [facility] [place] | (Primary Dx) | | | | [place] | [place] [address] | | | | | [address] | [phone] | | | | | [phone] | | | +--------+ + + + [...] cannot be sent through Care Everywhere.THORACIC STRAIN (CROATIAN)documented in this encounter Medications at Time of [...] [place] | | | | | | [address] | | | | | | | | +--------+---------+ + + + | 11/21/ | Office | Cardiology | Yesi, | | | 2019 | Visit | | JOSE ALBERTO Linder [address] | | | | | | [place], | | | | | | [place] [address] | | | | | | [phone] | | | | | | | [...] - 1.030 | [facility] | | | [place] | | | [facility] | | [...] + | [facility] | [address] | [place] | [phone] | | [facility] | | [address] | | | - LABORATORY | | | | + + + + + | [facility] | [address] | [place] | | | [facility] | | [address] | | | - LABORATORY | | [...] | 1.015 | | | | | [place], | | | | | | UA, [...] + | MISCELLANEOUS LAB | | | [phone] | + +---------+ + + | MISCELANIOUS LAB | | | [phone] | + +---------+ + + documented in [...]
--- OUTSIDE RECORDS SUMMARY | ~2019-05-18 | XMS | Encounter Summary ---
Demographics + + + | Address | [address] | | | [place] [address] | + + + | Home Phone [...] + | Author | [facility] | | | and Ohana | + + + | Organization | [facility] [...] | | | | | [place] [address] | | + + + + + | Hunter Jackson | ECON | [place] | | + + + + + | Wes Jackson | ECON | [place], [place] | | + + + + + | Oziel Jackson | ECON | [place], [place] | | + + + + + Care Team Providers + +------+ + | Care Plaster Helper Name | Role | Phone | [...] | Visit | ORTHOPEDIC SURGERY | [address] [facility] | syndrome, right | | | | [address] [facility] | [place] | (Primary Dx); [facility] | | | | [place] | [address] | arthritis | | | | [address] | | | | | | [phone] | | | +--------+---------+ + + + [...] [place] | | | | | | [address] | | | | | | | | +--------+---------+ + + + | 11/21/ | Office | Cardiology | Yesi, | | | 2019 | Visit | | JOSE ALBERTO Linder [address] | | | | | | [place], | | | | | | [place] [address] | | | | | | [phone] | | | | | | | [...] PST | | | | | ONCE, [facility] 06/06/16 at 1145, For 1 | | | | | | | dose, Shake well. Not for IV | | | | | | | use., | | | | | | + +-------+ +-------+---+ + +---+---+ | | | +---+---+ documented in this encounter"
--- OUTSIDE RECORDS SUMMARY | ~2019-05-18 | XMS | Encounter Summary ---
Demographics + + + | Address | [address] | | | [place] [address] | + + + | Home Phone [...] + | Author | [facility] | | | and [place]ana | + + + | Organization | [facility] | [...] [place] | | | | | [place] [address] | | + + + + + | Hunter Jackson | ECON | [place] | | + + + + + | Wes Jackson | ECON | [place], [place] | | + + + + + | Oziel Jackson | ECON | [place], [place] | | + + + + + Care Team Providers + +------+ + | Care Ornamental Iron Worker Apprentice Name | Role | Phone | + [...] | Ulysses Rios MD | [address] | | | | | right | [address] | [place], | | | | | shoulder | [place] | [place] | | | | | pain | [place] | [address] | | | | | Procedures | [address] | Phone: | | | | | MRI Shoulder | Phone: | [phone] | | | | | Right wo | [phone] | Fax: | | | | | Contrast | Fax: | [phone] | | | | | | [phone] | | +--------+--------+ + + + + Reason for Visit + + + | Reason | Comments | + + + | Appointment | | + + + Encounter Details +--------+ + + + + | Date | Type | Department | Care Team | Description | +--------+ + + + + | 09/16/ | Telephone | [facility] | Ulysses Jensen, | Appointment | | 2016 | | ORTHOPEDIC SURGERY | [address] [facility] | | | | | [address] [place] [address] | [place], [place] | | | | | [place], [place] | [address] | | | | | [address] | | | | | | [phone] | | | +--------+ + + + [...] STREET[place] | | | | | | [address] | | | | | | | | +--------+---------+ + + + | 11/21/ | Office | Cardiology | Yesi, | | | 2019 | Visit | | JOSE ALBERTO Linder [address] | | | | | | [place], | | | | | | [place] [address] | | | | | | [phone] | | | | | | | [...] Evaluate for Rotator Cuff Tear. COMPARISON: | [facility] | | None. PROTOCOL: Axial proton density fat sat, coronal proton | [facility] | | density fat sat, sagittal [...] + + | Performing | Address | City/State/[facility] Cent[facility] | Phone Number | | Organization | | | | + + + + + | [facility] | [address] | [place] | [phone] | | [facility] | | [address] | | | - IMAGING | | | | + + + + + documented in this encounter Visit Diagnoses + + | Diagnosis | + + | Chronic right shoulder pain - Primary Pain in joint, shoulder region | + + documented in this encounter"
--- OUTSIDE RECORDS SUMMARY | ~2019-05-18 | XMS | Encounter Summary ---
Demographics + + + | Address | [address] | | | [place] [address] | + + + | Home Phone [...] | Author | [facility] | | | and [place] | + + + | Organization | [facility] | | [...] | | | | | [place] [address] | | + + + + + | Hunter Jackson | ECON | [place] | | + + + + + | Wes Jackson | ECON | [place], [place] | | + + + + + | Oziel Jackson | ECON | [place], [place] | | + + + + + Care Team Providers + +------+ + | Care Die Grinder Name | Role | Phone | + +------+ + | Rodolfo Cruz MD | PCP | | + +------+ + Encounter Details +--------+ + + + + | Date | Type | Department | Care Team | Description | +--------+ + + + + | 11/30/ | Abstract | [facility] | Rodolfo Cruz, | | | 2013 | | MEDICINE [address] [place] [address] | MD [address] | | | | | [facility] | [place] | | | | | [place] [address] | [address] | | | | | [phone] | | | +--------+ + + + [...] [place] | | | | | | [address] | | | | | | | | +--------+---------+ + + + | 11/21/ | Office | Cardiology | Yesi, | | | 2019 | Visit | | JOSE ALBERTO Linder [address] | | | | | | [place], | | | | | | [place] [address] | | | | | | [phone] | | | | | | | [...]
--- OUTSIDE RECORDS SUMMARY | ~2019-05-18 | XMS | Encounter Summary ---
Demographics + + + | Address | [address] | | | [place] [address] | + + + | Home Phone [...] | Author | [facility] | | | and [place] | + + + | Organization | [facility] [...] [place] | | | | | [place] [address] | | + + + + + | Hunter Jackson | ECON | [place] | | + + + + + | Wes Jackson | ECON | [place], [place] | | + + + + + | Oziel Jackson | ECON | [place], [place] | | + + + + + Care Team Providers + +------+ + | Care Manager Telecom Name | Role | Phone | + [...] + + | 10/16/ | Telephone | [facility] | Irina Simms, | Other (plan of care) | | 2017 | | CARDIOLOGY [address] | [address] | | | | | [place], | [place], | | | | | [place] [address] | [place] [address] | | | | | [phone] | [phone] | | | | | | | [...] [place]REET[place] | | | | | | [address] | | | | | | | | +--------+---------+ + + + | 11/21/ | Office | Cardiology | Yesi, | | | 2019 | Visit | | JOSE ALBERTO Linder [address] | | | | | | [place] | | | | | | [place] [address] | | | | | | [phone] | | | | | | | | +--------+---------+ + + + documented as of this encounter Visit Diagnoses Not on filedocumented in this encounter"
--- OUTSIDE RECORDS SUMMARY | ~2019-05-18 | XMS | Encounter Summary ---
Demographics + + + | Address | [address] | | | [place] [address] | + + + | Home Phone [...] Author | [facility] | | | and [place] | + + + | Organization | [facility] | [...] [place] | | | | | [place] [address] | | + + + + + | Hunter Jackson | ECON | [place] | | + + + + + | Wes Jackson | ECON | [place], [place] | | + + + + + | Oziel Jackson | ECON | [place], [place] | | + + + + + Care Team Providers + +------+ + | Care Battery Container Inspector Name | Role | Phone | [...] mixed (Primary Dx); | | | | [place], | [place], | 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 MEDICAL, SURGICAL, AND PERSONAL HISTORY Past [...] cervical Cervical radiculopathy Coronary artery disease involving [place] coronary artery of [place] heart with unstable angina pectoris Stress hyperglycemia [...] RESULTS reviewed during visit today primarily from [facility]: LIPID Lab Results Component Value Date CHOL [...] 1. Coronary artery disease A. Seen at [facility] they had EKG and sent her home stating it was GERD B. Seen in the emergency room at [facility] for chest pain. She was schedu le for stress test and discharged home. C. Stress Test 05/16/16, is maximal asymptomatic stress test, [facility] er very poor function status, achieving maximal [...] central AI, no , trace TR, trace CO, normal aorta other than mild calcification at [...] failure.She is in a class I of [employer] [employer] functional class.on physica l examination [...] this chart may have been created with Aula 7 voice recognition software. Occasi onal wrong-word or [...] [place]REET[place] | | | | | | [address] | | | | | | | | +--------+---------+ + + + | 11/21/ | Office | Cardiology | Yesi, | | | 2019 | Visit | | JOSE ALBERTO Linder [address] | | | | | | [place], | | | | | | [place] [address] | | | | | | [phone] | | | | | | | [...] involving | | | | | | [place] coronary | | | | | | artery of [place] | | | | | | heart with unstable | | | | | | angina pectoris | | | | | | ([facility]) Transient | | | | | | [...] MD | | | | | | ([id number]) on 09/12/2017 | | | | | [...] + + | Coronary artery disease involving [place] coronary artery of [place] heart with unstable | | angina pectoris (HCC) | + + | Transient cerebral ischemia, unspecified type | + + documented in this encounter
--- OUTSIDE RECORDS SUMMARY | ~2019-05-18 | XMS | Encounter Summary ---
Demographics + + + | Address | [address] | | | [place] [address] | + + + | Home Phone [...] Author | [facility] | | | and [place] | + + + | Organization | [facility] | | | and hOana | + + + | Address | Unknown | + + + | Phone | Unavailable | + + + Support + + + + + | Name | Relationship | Address | Phone | + + + + + | Osmin Jackson | ECON | [address] | | | | | [place] [address] | | + + + + + | Hunter Jackson | ECON | [place] | | + + + + + | Wes Jackson | ECON | [place], [place] | | + + + + + | Oziel Jackson | ECON | [place], [place] | | + + + + + Care Team Providers + +------+ + | Care Artillery Specialist Name | Role | Phone | + +------+ + | Rodolfo Cruz MD | PCP | | + +------+ + Encounter Details +--------+ + + + + | Date | Type | Department | Care Team | Description | +--------+ + + + + | 05/08/ | Hospital | [facility] | Beatriz Faust | | | 2010 | Encounter | MED CTR XRAY [address] | DO Danny [address]ron | | | | | [place] | [place], [place] | | | | | [place] [address] | [id number] | | | | | [phone] | | | +--------+ + + + [...] | | | | | | [place] [address] | | | | | | [phone] | | | | | | | [...] Performed At | + + + | [facility] Diagnostic Imaging Department | [facility] | | [address] [facility] | [facility] | | GALLBLADDER ULTRASOUND 05/08/2011 | DIAG [...] Transcribed Date/Time: | | | 05/08/2011 15:21 Joy Operator: <Electronically Signed | | | by Peng Acosta MD> 05/08/11 1607 | | + + + + + | Procedure Note | + + | Zoltan Macedo Conversion - 06/18/2013 4:28 PM [facility] | | Diagnostic Imaging Department [address] [facility] | | GALLBLADDER ULTRASOUND 05/08/2011 CLINICAL [...] 13:46 | |Transcribed Date/Time: 05/08/2011 15:21 | |Joy Operator: | |<Electronically Signed by Peng Acosta [...]
--- OUTSIDE RECORDS SUMMARY | ~2019-05-18 | XMS | Encounter Summary ---
Demographics + + + | Address | [address] | | | [place] [address] | + + + | Home Phone [...] | Author | [facility] | | | and [place] | + + + | Organization | [facility] | [...] | | | | | [place] [address] | | + + + + + | Hunter Jackson | ECON | [place] | | + + + + + | Wes Jackson | ECON | [place], [place] | | + + + + + | Oziel Jackson | ECON | [place], [place] | | + + + + + Care Team Providers + +------+ + | Care Commodity Manager Name | Role | Phone | [...] bone | Rodolfo Reilly MD | [address] | | | | | lesions on | [address] | [place], | | | | | xray | [place] | [place] [address] | | | | | Procedures | [place], [place] | Phone: | | | | | CT Chest | [address] | [phone] | | | | | Abdomen | Phone: | Fax: | | | | | Pelvis w | [phone] | [phone] | | | | | Contrast | Fax: | | | | | | | [phone] | | +--------+--------+ + + + + [...] bone | Rodolfo Reilly MD | [address] | | | | | lesions on | [address] | [place], | | | | | xray | [place] | [place] [address] | | | | | Procedures | [place], [place] | Phone: | | | | | CT Chest | [address] | [phone] | | | | | Abdomen | Phone: | Fax: | | | | | Pelvis w | [phone] | [phone] | | | | | Contrast | Fax: | | | | | | | [phone] | | +--------+--------+ + + + + Encounter Details +--------+ + + + + | Date | Type | Department | Care Team | Description | +--------+ + + + + | 11/09/ | Hospital | [facility] | Rodolfo Cruz, | Lytic bone lesions | | 2013 | Encounter | MED CTR [address] | MD [address] | on xray | | | | [place], | [place], [place] | | | | | [place] [address] | [address] | | | | | [phone] | | | +--------+ + + + [...] [place] | | | | | | [address] | | | | | | | | +--------+---------+ + + + | 11/21/ | Office | Cardiology | Yesi, | | | 2019 | Visit | | JOSEA LBERTO Linder [address] | | | | | | [place], | | | | | | [place] [address] | | | | | | [phone] | | | | | | | [...] intravenous | | administration of 90 mL [id number] contrast. Oral contrast was administered. | | [...] + | MISCELLANEOUS LAB | | | [phone] | + +---------+ + + | MISCELANIOUS LAB | | | [phone] | + +---------+ + + documented in [...]
--- OUTSIDE RECORDS SUMMARY | ~2019-05-18 | XMS | Encounter Summary ---
Demographics + + + | Address | [address] | | | [place] [address] | + + + | Home Phone [...] Author | [facility] | | | and [place] | + + + | Organization | [facility] | | | and [place] | + + + | Address | Unknown | + + + | Phone | Unavailable | + + + Support + + + + + | Name | Relationship | Address | Phone | + + + + + | Osmin Jackson | ECON | [address] | | | | | [place] [address] | | + + + + + | Hunter Jackson | ECON | [place] | | + + + + + | Wes Jackson | ECON | [place], [place] | | + + + + + | Oziel Jackson | ECON | [place], [place] | | + + + + + Care Team Providers + +------+ + | Care Computer Operations Specialist Name | Role | Phone | [...] | | atherosclero | | [address] | | | | | sis of | | [place], | | | | | unspecified | | [place] [address] | | | | | type of | | Phone: | | | | | vessel, | | [phone] | | | | | assiniboine and sioux or | | Fax: | | | | | graft | | [phone] | | | | | Coronary | | | | | | | atherosclero | | | | | | | sis of | | | | | | | unspecified | | | | | | | type of | | | | | | | vessel, | | | | | | | assiniboine and sioux or | | | | | | | graft | | | | | | | Procedures | | | | | | | RI ENDOSCOPY | | | | | | | | | | | | | | W/VIDEO-ASST | | | | | | | VEIN | | | | | | | HARVEST,CABG | | | | | | | RI CABG, | | | | | | | ARTERY-VEIN, | | | | | | | FOUR RI | | | | | | [...] [facility] | MD Christina [address] | | | | | OP [address] | [address] [place] | | | | | [place] | [phone] | | | | | [address] | | | | | | [phone] | | | +--------+---------+ + + + [...] might be different f rom the original. [facility] DISCHARGE SUMMARY PATIENT NAME: Jaclyn Jackson : 1935: AGE: 81 y.o. ADMISSION DATE: 11/01/2016 DISCHARGE DATE: 11/06/2016 PRIMARY CARE: FLORA Morgan Patient ID: Jaclyn Jackson [id number] 81 y.o. 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 Suhail Torrse [facility] Course: The patient proceeded to OR [...] at 11:00 am Contact information: [address] [facility] [address] Call Christina Loo MD. Specialty: Cardiothoracic Surgery Why: As needed, If symptoms worsen. Otherwise okay to follow up postop with Dr. Cevallos Contact information: [address] [place] [address] FLORA Morgan. Schedule an appointment as soon as possible for a visit in 2 weeks. Specialty: Physician Carpenter Inspector Why: Primary care follow up after cardiac surgery Contact information: [address], [address] [place] [id number] If patient has any further questions or concerns prior to above, instructed to call our off ice. [phone]. Time spent on discharge planning: less than [...] Mario London PA-C 11/06/2016 13:12 Cardiothoracic Surgery [facility] [address] [place] [address] Portions of this chart may have been created with Bplats voice recognition software. Occasi onal wrong-word or sound-alike substitutions may have occurred due to the inherent doe itations of voice recognition software. Please read the chart carefully and recognize, using context, where these substitutions have occurred. documented in this encounter Discharge Instructions Instructions Dominga Hernandez RN - 11/06/2016Formatting of this note might be different fro humphrey the original. [facility] After Open [...] ed help. Don t lift anything heavier [id number] for 4-6 weeks. Until approved by your [...] the hospital, begin with short wal ks (fdopk3carorgr) at home. Go a little longer each [...] of breath Fainting Weight gain of more ykei1tzlzwj jp48vhycs or more pnnq0gcmupz mr9mixy(s) New or increasedswelling in your hands, feet, [...] person(s) in the waiting room?: Mary Flores [phone] Patient Signature: Clinician/Auto Polisher Signature: documented in this encounter Medications at [...] patient and daughter. Prescriptions reviewed, pt to cloth picker at [facility] pharmacy. Questions answered. Advised of follow up appointme nts and to schedule follow up with PCP. Pt given Mg citrate this am with multiple BM's. To s hower and change and DC home to [place] by car with daughter. Update: Pt showered, dressed. States that she has all belongings. WC transport placed to [place] in doors. 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 PLAN OK to dc to home follow up in [place] SUBJECTIVE DATA SUBJECTIVE: tired after having BM [...] PA- C - 11/06/2016 9:10 AM PDT [facility] Progress Note Pt. Name/Age/: Jaclyn Jackson 81 y.o. 1935 Med. 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 Occasional wro ng-word or [...] feels quite well Follow-up can be in [place] from the cardiac standpoint They will talk [...] might be differen t from the original. [facility] Daily Progress Note 11/05/2016 Pt. Name/Age/: Jaclyn Jackson 81 y.o. 1935 Med. Record Number: [id number] Date of admission: 11/01/2016 Hospital Day: 5 4 Days Post-Op LVEF: 60-70 Procedure: CABGx3 Date of Surgery: 11/01/16 Surgeon: Dr. Christina Loo MD. Anusha Flores PA-C assisting Interval Events Uneventful night. ASSESSMENT: POD# 4 S/P CABGx3 - Overall doing well, hemodynamics stable, needs BM, on min imal O2, plan home tomorrow to [place] with daughter in law. 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 -Continue Amlodipine, Aspirin, Statin, Metoprolol -ECG without acute changes PLAN Continue current medications Increase ambulation Follow up with Physician Practice Manager in [place] SUBJECTIVE DATA REVIEW OF SYSTEMS: CV: negative [...] Portions of this chart were created with Bplats voice recognition software. Occasional wro ng-word or [...] presentation. Followup: She wants her followup in [place] and that is fine by me. I am not sure if surgical fo llowup in [place] is acceptable. Suhail Flannery MD [place] [...] Jackson DATE OF : 1935 MED RECORD: [id number] Pre-OP Dx Coronary artery disease Hypertension Dyslipidemia history of transient ischemic attack Hypothyroidism mild aortic regurgitation and calcified mitral annulus with calcium nodule in posterior mitral leaflet. Procedure 11/01/16 1. Coronary artery bypass surgery times 3, VERDUZCO to LAD, saphenous vein graft to diagonal, saphenous vein graft to right coronary artery. 2. Endoscopic vein harvest, left greater saphenous vein. SURGEON: Christina Loo MD HYDROPRESS OPERATOR: Anusha Flores PA-C SUBJECTIVE Sitting in chair. [...] 7.46 7.47 PO2ART 113* 118* 116* 156* [id number] 44* 47* 33 35 [id number] 95.2 95.6 95.7 96.8 BEART -- -- [...] regarding this --home ~2d Serene Castillo PA-C [facility] 11/04/2016, 8:02 I have participated [...] low back pain 08/24/2014 Clotting disorder ([facility]) 2013 duodenal ulcer COPD (chronic obstructive pulmonary disease) ([facility]) DDD (degenerative disc disease), cervical 07/25/2016 [...] Stenosis of cervical spine 07/25/2016 Stroke ([facility]) Apr 2010 TIA 05/08/2010 Tinea corporis 01/31/2015 UGIB (upper gastrointestinal bleed) 11/14/2013 Valvular heart disease 05/23/2010 Vertigo 09/03/2012 Past Surgical History: Procedure Laterality Date CARDIAC CATHERIZATION N/A 10/16/2016 Procedure: CV LHC; Surgeon: Irina Simms MD; Location: [facility] CV LAB COLONOSCOPY 05/2002; 03/28/10 next due 03/2020 FOOT FRACTURE SURGERY Left 2004 HEMORRHOID SURGERY [phone] Removal lower left nodules 2004 THYROIDECTOMY TONSILLECTOMY AND ADENOIDECTOMY 1955 UPPER GASTROINTESTINAL ENDOSCOPY 11/15/2013 EGD * IP RM: 428 * ; Laterality: N/A; Surgeon: Lauri Garrison MD; Location: [facility] MEDICAL PROCEDURE UNIT UPPER GASTROINTESTINAL ENDOSCOPY 11/04/2013 EGD IP 449; Laterality: N/A; Surgeon: Samm Pandya MD; Location: [facility] MEDICAL P ROCEDURE UNIT reports that she [...] Procedure Component Value Units Date/Time MRSA NAAT [[id number]] Collected: 10/31/16 1520 Order Status: Completed Lab Status: Final result Updated: 10/31/16 3973 Specimen: Respiratory from Nasal/Nose Specimen Source Nasal [...] Electronically signed by: Flor Lynch Diabetes team, [facility] [phone] Isaias Leyva ARNP - 11/03/2016 10:37 AM PDT PATIENT NAME: Jaclyn Jackson : 1935: AGE: 81 y.o. 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 -Continue Amlodipine, Aspirin, statin, Metoprolol -ECG without acute changes PLAN Continue current medications Patient would like to follow up with cardiology in [place] SUBJECTIVE DATA REVIEW OF SYSTEMS: CV: negative [...] Portions of this chart were created with Bplats voice recognition software. Occasional wro ng-word or [...] halls without problems She has an established industrial relations officer in [place] up with her. Suhail Flannery MD [place] [...] 11/03/2016 8:58 AM P DT [facility] HE[facility] CARDIOTHORACIC SURGERY PROGRESS NOTE Pt. Name/Age/: Jaclyn Jackson 81 y.o. 1935 Med. 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 Making good progress. Mando Calles MD [facility], Suhail washington MD - 11/02/2016 11:21 AM PDT [facility]: PATIENT NAME: Jaclyn Jackson : 1935: AGE: 81 y.o. ADMISSION DATE: 11/01/2016 Admitting Provider: Christina Loo MD Primary Provider: FLORA Morgan Hospital Day: Hospital Day: 2 LOS: 1 Code Status: Full Code Physician Practice Manager: Suhail Flannery MD [facility] DATE OF SERVICE: 11/02/2016 PRIMARY HOSPITAL PROBLEM: CABG for 3 VD from [facility] CHIEF COMPLAINT: Chest pain and nausea ASSESSMENT Discussion: Chest pain and nausea Will reassess with EKG, but seems incisional to me EKG looks fine, minimal change Labs look good, and overall she seems to be doing well CT tube are out, and NSR Anemia Assessment & Plan Actually looks good with 9.9 post op (11.7 prior). 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 Total number o f images: 1. IMPRESSION: Fluoroscopic assisted right jugular venous access with Hope-Michael c atheter. Signed by: Fredy Miranda Xr [...] willis MD - 11/02/2016 7:46 AM PDT [facility] PROGRESS NOTE Pt. Name/Age/: Jaclyn Jackson 81 y.o. 1935 [facility]. Record Number: [id number] Date of admission: 11/01/2016 POD 1 Procedure: [...] -Levothyroxine 50 g daily Chronic pain -Takes Portis 7.5 and Voltaren ointment at home History [...] Electronically signed by: Amna Benavides PA-C Physician Carpenter Inspector [facility] Cardiothoracic Surgery 11/02/2016 7:46 [facility] Addendum: Doing well though difficult night Agree [...] Sanchez LICSW - 11/01/2016 6:00 PM PDT Supervisor Train Operations: Pt resides in [place], [place]. She has Medicare coverage. Will follow progress post op and any other therapy recommendations for discharge planning. Semaj Keith - 11/01/2016 2:22 PM PDTPatie nt arrived to room 260, vitals stable. Sedated. Reported received. Amna Garcia PA-C - 11/01/2016 1:26 PM PDT [facility] Immediate Post-Operative Note Subjective Pt. Name/Age/: Jaclyn Jackson 81 y.o. 1935 Med. Record Number: [id number] Date of admission: 11/01/2016 Procedure: Coronary artery [...] Results Component Value Date PHART 7.47 11/01/2016 KGI0PRC 36 11/01/2016 PO2ART 290 11/01/2016 J6PPGABUU 13.9 (L) 11/01/2016 YKX8NMS 26.0 11/01/2016 BEART 2.6 (H) 11/01/2016 HGB [...] -Levothyroxine 50 g daily Chronic pain -Takes Portis 7.5 and Voltaren ointment at home History of TIA -no neuro deficits upon admission History of asthma -uses albuterol at home Electronically signed by: Amna Benavides PA-C 11/01/2016 13:26 Cardiothoracic [facility] [address] [place], [place] [id number] Portions of this chart may have been created with Bplats voice recognition software. Occasi onal wrong-word or [...] | | | | | | [place] [address] | | | | | | [phone] | | | | | | | [...] Occurrences starting | | | | | assiniboine and sioux coronary | 11/04/2016 until | | | | | artery of assiniboine and sioux | 11/04/2016 | | | | | [...] involving | | | | | | assiniboine and sioux coronary | | | | | | artery of assiniboine and sioux | | | | | | heart [...] | | | | | | vessel, assiniboine and sioux or | | | | | | [...] whether | | | | | | assiniboine and sioux or | | | | | | [...] whether | | | | | | assiniboine and sioux or | | | | | | [...] whether | | | | | | assiniboine and sioux or | | | | | | [...] whether | | | | | | assiniboine and sioux or | | | | | | [...] whether | | | | | | assiniboine and sioux or | | | | | | [...] whether | | | | | | assiniboine and sioux or | | | | | | [...] whether | | | | | | assiniboine and sioux or | | | | | | [...] + + | Glucose | 114 (H)Comment: Zimbabwean | 65 - 99 mg/dL | [facility] [...] + + | OLEGARIO [facility]CRED | [address] | [place] [address] | | | [facility] | | | | [...] MIRANDA | [address] | [place] [address] | | | [facility] | [...] + | [facility] | [address] [facility] [address] | [place] [address] | | | [facility] | | | | [...] + | OLEGARIO SACRED | [address] [facility] [address] [facility] [address] | [place] [address] | | | [facility] | | | | | [...] + + | OLEGARIO MIRANDA | [address] | [place] [address] | | | [facility] | | | | [...] + + | Glucose | 115 (H)Comment: Zimbabwean | 65 - 99 mg/dL | [place] | | | | [facility] Association | [...] + | PAGEE [facility]CRED | [address] [facility] [address] [facility] [address] | [place] [address] | | | [facility] | | | | [...] | [address] | [place] [address] | | | [facility] | | | | | [...] + | MARAHLIBERTADGabriel MIRANDA | [address] [facility] [address] | [place] [address] | | | [facility] | | | | [...] + | [facility] | [address] [facility] [address] | [place] [address] | | | [facility] | [...] SACRED | [address] | [place] [address] | | | [facility] | | | | | [...] + + | OLEGARIO MIRANDA | [address] | [place] [address] | | | [facility] | | | | [...] | TRACEMASTER | | Duration:140 msP Horizontal Baker:-43 degP Front Baker:60 degQ Onset:514 | | | msQRSD Interval:78 msQT Interval:384 msQTcB:426 msQTcF:412 msQRS | | | Horizontal Baker:3 degQRS Baker:21 degI-40 Horizontal Baker:-8 degI-40 | | | Front Baker:15 degT-40 Horizontal Baker:-6 degT-40 Front Baker:22 degT | | | Horizontal Baker:44 degT Wave Baker:12 degS-T Horizontal Baker:42 degS-T | | | Front Baker:22 degSeverity:- BORDERLINE ECG -INTERP:SINUS | | | RHYTHMINTERP:PROBABLE LEFT ATRIAL ABNORMALITYElectronically signed by: | | | PATRICK BURKETT 11-09-2016 13:17:14 | | |QTcB:426 ms | | |QTcF:412 ms | | |QRS Horizontal Baker:3 deg | | |QRS Baker:21 deg | | |I-40 Horizontal Baker:-8 deg | | |I-40 Front Baker:15 deg | | |T-40 Horizontal Baker:-6 deg | | |T-40 Front Baker:22 deg | | |T Horizontal Baker:44 deg | | |T Wave Baker:12 deg | | |S-T Horizontal Baker:42 deg | | |S-T Front Baker:22 deg | | |Severity:- BORDERLINE ECG - | | |INTERP:SINUS RHYTHM | | |INTERP:PROBABLE LEFT ATRIAL ABNORMALITY | | |Electronically signed by: PATRICK BURKETT 11-09-2016 13:17:14 | | + + + + + + + + | Performing | Address | City/State/Zipcode | Phone Number | | Organization | | | | + + + + + | ROSEANN CORREA | [address] | [place] [address] | [phone] | + + + + + POC [...] + + | OLEGARIO MIRANDA | [address] | [place] [address] | | | [facility] | | | | | [...] + | [facility] | [address] [facility] [address] | [place] [address] | | | [facility] | | | | [...] | [address] | [place] [address] | | | [facility] | | | | | [...] + | MARAHLIBERTADGabriel MIRANDA | [address] [facility] [address] [facility] [address] | [place] [address] | | | [facility] | | | | [...] + | [facility] | [address] [facility] [address] | [place] [address] | | | [facility] | [...] SACRED | [address] | [place] [address] | | | [facility] | | | | | [...] SACRED | [address] | [place] [address] | | | [facility] | | | | [...] + + | OLEGARIO MIRANDA | [address] | [place] [address] | | | [facility] | | | | | [...] + | [facility] | [address] [facility] [address] [facility] [address] | [place] [address] | | | [facility] | | | | [...] + + | MARAHLIBERTADGabriel GRACEDRU | [address] | [place] [address] | | | [facility] | | | | [...] + + | Glucose | 131 (H)Comment: Zimbabwean | 65 - 99 mg/dL | [facility] [...] + + | OLEGARIO SACRED | [address] | [place] [address] | | | [facility] | | | | [...] + + | OLEGARIO MIRANDA | [address] | [place] [address] | | | [facility] | | | | [...] + + | OLEGARIO MIRANDA | [address] | [place] [address] | | | [facility] | | | | [...] [address] | [place] [address] | | | [facility] | | | | | [...] [address] | [place] [address] | | | [facility] | | | | | [...] + | MARAHLIBERTADGabriel MIRANDA | [address] [facility] [address] | [place] [address] | | | [facility] | | | | [...] + + | OLEGARIO MIRANDA | [address] | [place] [address] | | | [facility] | | | | | [...] SACRED | [address] | [place] [address] | | | [facility] | | | | [...] + | OLEGARIO SACRDRU | [address] [facility] [address] | [place] [address] | | | [facility] | | | | [...] + + | OLEGARIO MIRANDA | [address] | [place] [address] | | | [facility] | | | | | [...] [address] | [place] [address] | | | [facility] | | | | | [...] + + | OLEGARIO MIRANDA | [address] | [place] [address] | | | [facility] | | | | [...] | [address] | [place] [address] | | | [facility] | [...] Patient | | | Name: JACLYN JACKSON: [id number] | | | Study Date: 11/01/2016DOB: 1935 | | | Gender: FemaleAge: 81 yrs | | | Location[facility] | | | Study: intraop CABG,SCA [...] central AI, no , trace TR, trace RI.5. Normal aorta other than mild | | [...] |Ordering Physician: Christina Loo MD | | |Surgical Product Sales Consultant: Fredy Almaguer MD | | | | | + + + + + | Procedure Note | + + | Remington, Rad Results In - 11/01/2016 2:28 PM PDT | | Adult Intra-Op | | ORA Report | | | | Patient Name: JACLYN JACKSON | | Study Date: 11/01/2016 | | : 1935 Gender: Female | | Age: 81 yrs Location: [facility] | | OOL [...] central AI, no , trace TR, trace RI. | | 5. Normal aorta other than [...] Ordering Physician: Christina Loo MD | | Surgical Product Sales Consultant: Fredy Almaguer MD | + + Potassium [...] + + | OLEGARIO MIRANDA | [address] | [place] [address] | | | [facility] | | | | [...] + | [facility] | [address] | [place] [address] | | | [facility] | | | | [...] + + | OLEGARIO MIRANDA | [address] | [place] [address] | | | [facility] | | | | | [...] + | [facility] | [address] [facility] [address] [facility] [address] | [place] [address] | | | [facility] | [...] + + | OLEGARIO MIRANDA | [address] | [place] [address] | | | [facility] | | | | [...] + | O[facility] SACRED | [address] | [place] [address] | | | [facility] | [...] % | PROVID[facility] | | | | [id number] | | SACRED | | | | [...] + + | OLEGARIO MIRANDA | [address] | [place] [address] | | | [facility] | | | | [...] | TRACEMASTER | | Duration:148 msP Horizontal Baker:6 degP Front Baker:72 degQ Onset:512 | | | msQRSD Interval:80 msQT Interval:452 msQTcB:463 msQTcF:459 msQRS | | | Horizontal Baker:16 degQRS Baker:56 degI-40 Horizontal Baker:49 degI-40 | | | Front Baker:45 degT-40 Horizontal Baker:-8 degT-40 Front Baker:59 degT | | | Horizontal Baker:66 degT Wave Baker:64 degS-T Horizontal Baker:66 degS-T | | | Front Baker:38 degSeverity:- NORMAL ECG -INTERP:SINUS | | | RHYTHMElectronically signed by: Ramin PEREZ 11-01-2016 16:20:01 | | |QT Interval:452 ms | | |QTcB:463 ms | | |QTcF:459 ms | | |QRS Horizontal Baker:16 deg | | |QRS Baker:56 deg | | |I-40 Horizontal Baker:49 deg | | |I-40 Front Baker:45 deg | | |T-40 Horizontal Baker:-8 deg | | |T-40 Front Baker:59 deg | | |T Horizontal Baker:66 deg | | |T Wave Baker:64 deg | | |S-T Horizontal Baker:66 deg | | |S-T Front Baker:38 deg | | |Severity:- NORMAL ECG - | | |INTERP:SINUS RHYTHM | | |Electronically signed by: Ramin PEREZ 11-01-2016 16:20:01 | | + + + + + + + + | Performing | Address | City/State/Zipcode | Phone Number | | Organization | | | | + + + + + | [facility] | [address] | [place] [address] | [phone] | + + + + + XR [...] + + | OLEGARIO SACRDRU | [address] | [place] [address] | | | [facility] | | | | | [...] + + | [facility] | [address] | [place] [address] | | | [facility] | [...] + + | OLEGARIO MIRANDA | [address] | [place] [address] | | | [facility] | | | | [...] + + | [facility] | [address] | [place] [address] | | | [facility] | [...] [address] | [place] [address] | | | [facility] | [...] + + | [facility]AR[facility] SACRED | [address] | [place] [address] | | | [facility] | [...] + + | OLEGARIO MIRANDA | [address] | [place] [address] | | | [facility] | | | | [...] + | [facility] | [address] | [place] [address] | | | [facility] | [...] + + | OLEGARIO MIRANDA | [address] | [place] [address] | | | [facility] | | | | [...] + + | OLEGARIO MIRANDA | [address] | [place] [address] | | | [facility] | | | | | [...] + + | OLEGARIO MIRANDA | [address] | [place] [address] | | | [facility] | | | | | [...] + + | OLEGARIO MIRANDA | [address] | [place] [address] | | | [facility] | | | | [...] + + | OLEGARIO MIRANDA | [address] | [place] [address] | | | [facility] | | | | [...] | | | jugular venous access and Hope-Michael catheter and to the area of | | | segmental right lower lobe arteries. Total number of images: 1. | | | IMPRESSION: Fluoroscopic assisted right jugular venous access with | | | Hope-Michael catheter. Signed by: Fredy Miranda | | [...] image showing left jugular venous access and Hope-Michael | | catheter and to the area of segmental right lower lobe arteries. | | | | Total number of images: 1. | | | | IMPRESSION: | | Fluoroscopic assisted right jugular venous access with Hope-Michael | | catheter. | | | | [...] + + | MARAHLIBERTADGabriel MIRANDA | [address] | [place] [address] | | | [facility] | | | | [...] SACRED | [address] | [place] [address] | | | [facility] | | | | | [...] + + | OLEGARIO MIRANDA | [address] | [place] [address] | | | [facility] | | | | [...] - 1.030 | [facility] | | | [place] | | | SACRED | | | [...] + + | OLEGARIO MIRANDA | [address] | [place] [address] | | | [facility] | | | | [...] | | | | | | [facility] | | | | | | [facility] | | | | | | [facility] | | | | | | [facility] | | | | | | [facility] | | + + + + + + | Rh Type | Positive | | REFERENCE | | | | | | [facility] | | | [facility] | [facility] | | | | | [facility] | | | | | | [facility] | | | | | | [facility] | | + + + + + + | Antibody | NegativeComment: Patient | | REFERENCE | | | Screen | is remote crossmatch | | [facility] | | | | eligible | | [...] + + + | Specimen Expiration Date: [id number] | REFERENCE [facility] | | | [facility] | | | [facility] | | | [facility] | + + + + + + + + | Performing | Address | City/State/Zipcode | Phone Number | | Organization | | | | + + + + + | REFERENCE [facility] | [address] | [place] [address] | [phone] | | [facility] | | | | | [facility] [...] + + | MARAHFABIAN MIRANDA | [address] | [place] [address] | | | [facility] | | | | | LABORATORY | | | | + + + + + Yasminime INR (10/31/2016 4:09 PM PDT) + + [...] + + | OLEGARIO MIRANDA | [address] | [place] [address] | | | [facility] | | | | | LABORATORY | | | | + + + + + Hemoglobin A1C (10/31/2016 4:09 PM PDT) + + + + + + | Component | Value | Ref Range | Performed | Pathologist | | | | | At | Signature | + + + + + + | Hemoglobin | 5.4Comment: The Zimbabwean | 4.3 - 6.1 % | OLEGARIO [...] [address] | [place] [address] | | | [facility] | [...] + + | MARAHFABIAN MIRANDA | [address] | [place] [address] | | | [facility] | | | | [...] + + + | Glucose | 93Comment: Zimbabwean | 65 - 99 mg/dL | [facility] [...] + + | OLEGARIO MIRANDA | [address] | [place] [address] | | | [facility] | | | | [...] | TRACEMASTER | | Duration:148 msP Horizontal Baker:24 degP Front Baker:69 degQ Onset:512 | | | msQRSD Interval:84 msQT Interval:424 msQTcB:406 msQTcF:412 msQRS | | | Horizontal Baker:4 degQRS Baker:36 degI-40 Horizontal Baker: degI-40 | | | Front Baker:30 degT-40 Horizontal Baker:-7 degT-40 Front Baker:36 degT | | | Horizontal Baker:60 degT Wave Baker:61 degS-T Horizontal Baker:108 degS-T | | | Front Baker:89 degSeverity:- ABNORMAL ECG -INTERP:SINUS | | | RHYTHMINTERP:CONSIDER LEFT VENTRICULAR HYPERTROPHYElectronically | | | signed by: Ramin PEREZ 11-01-2016 06:15:12 | | |QTcB:406 ms | | |QTcF:412 ms | | |QRS Horizontal Baker:4 deg | | |QRS Baker:36 deg | | |I-40 Horizontal Baker: deg | | |I-40 Front Baker:30 deg | | |T-40 Horizontal Baker:-7 deg | | |T-40 Front Baker:36 deg | | |T Horizontal Baker:60 deg | | |T Wave Baker:61 deg | | |S-T Horizontal Baker:108 deg | | |S-T Front Baker:89 deg | | |Severity:- ABNORMAL ECG - | | |INTERP:SINUS RHYTHM | | |INTERP:CONSIDER LEFT VENTRICULAR HYPERTROPHY | | |Electronically signed by: Ramin PEREZ 11-01-2016 06:15:12 | | + + + + + + + + | Performing | Address | City/State/Zipcode | Phone Number | | Organization | | | | + + + + + | [facility] | [address] | [place] [address] | [phone] | + + + + + MRSA [...] + + | MARAHLIBERTADGabriel GRACEDRU | [address] | [place] [address] | | | [facility] | | | | | LABORATORY | | | | + + + + + documented in this encounter Visit Diagnoses + + | Diagnosis | + + | Coronary atherosclerosis of unspecified type of vessel, assiniboine and sioux or graft | + + documented in [...]
--- OUTSIDE RECORDS SUMMARY | ~2019-05-18 | XMS | Encounter Summary ---
Demographics + + + | Address | [address] | | | [place] [address] | + + + | Home Phone [...] | Author | [facility] | | | and [place] | + + + | Organization | [facility] | | [...] | | | | | [place] [address] | | + + + + + | Hunter Jackson | ECON | [place] | | + + + + + | Wes Jackson | ECON | [place], [place] | | + + + + + | Oziel Jackson | ECON | [place], [place] | | + + + + + Care Team Providers + +------+ + | Care School Curriculum Developer Name | Role | Phone | [...] | 08/16/ | Refill | [facility] | Rodolfo Cruz, | Medication Refill | | 2016 | | MEDICINE [address] | [address] | | | | | [place] | [place] | | | | | [place] [address] | [address] | | | | | [phone] | | | +--------+--------+ + + + [...] | | | | | | [place] [address] | | | | | | [phone] | | | | | | | | +--------+---------+ + + + documented as of this encounter Visit Diagnoses + + | Diagnosis | + + | Insomnia, unspecified insomnia - Primary | + + documented in this encounter"
--- OUTSIDE RECORDS SUMMARY | ~2019-05-18 | XMS | Encounter Summary ---
Demographics + + + | Address | [address] | | | [place] [address] | + + + | Home Phone [...] + | Author | [facility] | | | and [place] | + + + | Organization | [facility] | | | and [place] | + + + | Address | Unknown | + + + | Phone | Unavailable | + + + Support + + + + + | Name | Relationship | Address | Phone | + + + + + | Osmin Jackson | ECON | [address] | | | | | [place] [address] | | + + + + + | Hunter Jackson | ECON | [place] | | + + + + + | Wes Jackson | ECON | [place], [place] | | + + + + + | Oziel Jackson | ECON | [place], [place] | | + + + + + Care Team Providers + +------+ + | Care Merchandising Director Name | Role | Phone | [...] + + | 07/08/ | Office | [facility] | Rodolfo Cruz, | Hyperlipidemia | | 2014 | Visit | MEDICINE LEJUNIOR | [address] | (Primary Dx); | | | | [address] | [place] | Hypothyroidism; | | | | [place], [place] | [address] | Hypertension; DJD | | | | [address] | | (degenerative joint | | | | [phone] | | disease); Asthma; | | | [...] 06/05/2010 and no changes required: Born in [facility] since 1965 Marital status: Children: 6, 5 living, 10 grandchildren 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
--- OUTSIDE RECORDS SUMMARY | ~2019-05-18 | XMS | Encounter Summary ---
Demographics + + + | Address | [address] | | | [place] [address] | + + + | Home Phone [...] + | Author | [facility] | | | and [place] | + + + | Organization | [facility] | | | and [place] | + + + | Address | Unknown | + + + | Phone | Unavailable | + + + Support + + + + + | Name | Relationship | Address | Phone | + + + + + | Osmin Jackson | ECON | [address] | | | | | [place] [address] | | + + + + + | Hunter Jackson | ECON | [place] | | + + + + + | Wes Jackson | ECON | [place], [place] | | + + + + + | Oziel Jackson | ECON | [place], [place] | | + + + + + Care Team Providers + +------+ + | Care 3D Modeler Name | Role | Phone | [...] Specialty | Physical | Diagnoses | | | | | Services | Therapy | Stenosis of | Yany, | | | | Required | | cervical | Velvet, | | | | | | spine | PA-C [address] | | | | | | [address] | [address] | | | | | | stenosis of | [place] | | | | | | cervical | [address] | | | | | | region DDD | Phone: | | | | | | (degenerativ | [phone] | | | | | | e disc | Fax: | | | | | | disease), | [phone] | | | | | | cervical | | | | | | | Procedures | | | | | | | HIM 07/30 | | | +--------+ + + + + + Reason for Visit + + + | Reason | Comments | + + + | Results, Imaging | Results | + + + Encounter Details +--------+ + + + + | Date | Type | Department | Care Team | Description | +--------+ + + + + | 07/23/ | Telephone | [facility] [place] | Yany, | Results, Imaging | | 2017 | | PHYSIATRY [address] | [address] | (Results) | | | | [address], | [facility], | | | | | [place] [address] | [place] [address] | | | | | [phone] | [phone] | | | | | | | [...] | | | | | | [place] [address] | | | | | | [phone] | | | | | | | | +--------+---------+ + + + + + +--------+ + + | Name | Type | Priori | Associated Diagnoses | Order Schedule | | | | ty | | | + + +--------+ + + | * [facility] Physical | Outpatient | Routin | Stenosis of | Ordered: 07/25/2016 | | Therapy - AMB | Referral | e | cervical spine | | | Referral | | | Foraminal stenosis | | | | | | of cervical region | | | | | | DDD (degenerative | | | | | | disc disease), | | | | | | cervical | | + + +--------+ + + documented as of this encounter Visit Diagnoses + + | Diagnosis | + + | Stenosis of cervical spine - Primary Spinal stenosis in cervical region | + + | Foraminal stenosis of cervical region Spinal stenosis in cervical region | + + | DDD (degenerative disc disease), cervical Degeneration of cervical intervertebral | | disc | + + documented in this encounter"
--- OUTSIDE RECORDS SUMMARY | ~2019-05-18 | XMS | Encounter Summary ---
Demographics + + + | Address | [address] | | | [place] [address] | + + + | Home Phone [...] | Author | [facility] | | | and [place] | + + + | Organization | [facility] [...] [address] | | | | | [place] [address] | | + + + + + | Hunter Jackson | ECON | [place] | | + + + + + | Wes Jackson | ECON | [place], [place] | | + + + + + | Oziel Jackson | ECON | [place], [place] | | + + + + + Care Team Providers + +------+ + | Care Office Bookkeeper Name | Role | Phone | + [...] + + | 04/09/ | Office | [facility] | Ulysses Jensen, | [facility] arthritis, | | 2011 | Visit | ORTHOPEDIC SURGERY | [address] | thumb, degenerative | | | | [address] | [facility] [place] | (Primary Dx) | | | | [place] | [address] | | | | | [address] | | | | | | [phone] | | | +--------+---------+ + + + [...] first [facility] sarah nt injection. She has qdgd-jh-ezni arthrosis and is actually doing quite well [...] STREETER | | | | | | [id number] | | | | | | | | +--------+---------+ + + + | 11/21/ | Office | Cardiology | Yesi, | | | 2019 | Visit | | JOSE ALBERTO Linder [address] | | | | | | [place] | | | | | | [place] [address] | | | | | | [phone] | | | | | | | | +--------+---------+ + + + documented as of this encounter Visit Diagnoses + + | Diagnosis | + + | [facility] arthritis, thumb, degenerative - Primary Localized osteoarthrosis not specified | | whether primary or secondary, hand | + + documented in this encounter
--- OUTSIDE RECORDS SUMMARY | ~2019-05-18 | XMS | Encounter Summary ---
Demographics + + + | Address | [address] | | | [place] [address] | + + + | Home Phone [...] Author | [facility] | | | and [place] | + + + | Organization | [facility] | | [...] | | | | | [place] [address] | | + + + + + | Hunter Jackson | ECON | [place] | | + + + + + | Wes Jackson | ECON | [place], [place] | | + + + + + | Oziel Jackson | ECON | [place], [place] | | + + + + + Care Team Providers + +------+ + | Care Api Product Manager Name | Role | Phone | [...] | Rodolfo Reilly MD | [address] | | | | | sprain and | [address] | [place], | | | | | strain, | AVE [place] | [place] | | | | | initial | [place], [place] | [address] | | | | | encounter | [address] | Phone: | | | | | Procedures | Phone: | [phone] | | | | | MRI Thoracic | [phone] | Fax: | | | | | Spine wo | Fax: | [phone] | | | | | Contrast | [phone] | | +--------+--------+ + + + + Reason for Visit + + + | Reason | Comments | + + + | Follow-up | 3 month | + + + Encounter Details +--------+---------+ + + + | Date | Type | Department | Care Team | Description | +--------+---------+ + + + | 10/12/ | Office | [facility] | Rodolfo Cruz, | Thoracic sprain and | | 2013 | Visit | MEDICINE [address] [place] [address] | [address] | strain, initial | | | | Street [place] | [place] [address] | encounter (Primary | | | | [place] [address] | [address] | Dx) | | | | [phone] | | | +--------+---------+ + + + [...] contraindicated in the elderly but pt had fiber optics technician friend who recommend ed the medication. [...] [place] | | | | | | [address] | | | | | | | | +--------+---------+ + + + | 11/21/ | Office | Cardiology | Yesi, | | | 2019 | Visit | | JOSE ALBERTO Linder [address] | | | | | | [place], | | | | | | [place] [address] | | | | | | [phone] | | | | | | | [...] | | | limitations of the large vanpc-ny-jfln sagittal images provided. | | | Cervical [...] noted at the base of the right D9amoxvqulhv process. A 3.1 cm rounded | | region of heterogeneously decreased L9yifgwq is noted in the left humeral head [...] for limitations of the large | | ygmmy-dr-osxg sagittal imagesprovided. Cervical neural foramina are not [...] + | MISCELLANEOUS LAB | | | [phone] | + +---------+ + + | MISCELANIOUS LAB | | | [phone] | + +---------+ + + documented in this encounter Visit Diagnoses + + | Diagnosis | + + | Thoracic sprain and strain, initial encounter - Primary | + + documented in this encounter
--- OUTSIDE RECORDS SUMMARY | ~2019-05-18 | XMS | Encounter Summary ---
Demographics + + + | Address | [address] | | | [place] [address] | + + + | Home Phone [...] + + | Author | [facility] | | | and [place] | + + + | Organization | [facility] | [...] | | | | | [place] [address] | | + + + + + | Hunter Jackson | ECON | [place] | | + + + + + | Wes Jackson | ECON | [place], [place] | | + + + + + | Oziel Jackson | ECON | [place], [place] | | + + + + + Care Team Providers + +------+ + | Care Supervisor Looping Name | Role | Phone | + [...] | SR | | | | | [phone] | | | +--------+ + + + [...] | | | | | | [place] [address] | | | | | | [phone] | | | | | | | [...]
--- OUTSIDE RECORDS SUMMARY | ~2019-05-18 | XMS | Encounter Summary ---
Demographics + + + | Address | [address] | | | [place] [address] | + + + | Home Phone [...] Author | [facility] | | | and [place] | + + + | Organization | [facility] | [...] | | | | | [place] [address] | | + + + + + | Hunter Jackson | ECON | [place] | | + + + + + | Wes Jackson | ECON | [place], [place] | | + + + + + | Oziel Jackson | ECON | [place], [place] | | + + + + + Care Team Providers + +------+ + | Care Hose Finisher Name | Role | Phone | [...] + + | 11/24/ | Office | [facility] | Rodolfo Cruz, | Anemia (Primary Dx); | | 2013 | Visit | [address] | [address] | UGI bleed; PUD | | | | Street [facility] | [place] [address] | (peptic ulcer | | | | [place] [address] | [address] | disease) | | | | [phone] | | | +--------+---------+ + + + [...] [address] | | | | | | [place], | | | | | | [place] [address] | | | | | | [phone] | | | | | | | [...]
--- OUTSIDE RECORDS SUMMARY | ~2019-05-18 | XMS | Encounter Summary ---
Demographics + + + | Address | [address] | | | [place] [address] | + + + | Home Phone [...] | Author | [facility] | | | and [place] | + + + | Organization | [facility] | | | and [place] | + + + | Address | Unknown | + + + | Phone | Unavailable | + + + Support + + + + + | Name | Relationship | Address | Phone | + + + + + | Osmin Jackson | ECON | [address] | | | | | [place] [address] | | + + + + + | Hunter Jackson | ECON | [place] | | + + + + + | Wes Jackson | ECON | [place], [place] | | + + + + + | Oziel Jackson | ECON | [place], [place] | | + + + + + Care Team Providers + +------+ + | Care Peer Health Promoter Name | Role | Phone | + [...] | Valvular heart | | | | [place], | [place], | disease; Epistaxis; | | | | [place] [address] | [place] [address] | Murmur; Essential | | | | [phone] | [phone] | hypertension with | | | | [...] involving | | | | | | tonawanda coronary | | | | | | artery of tonawanda | | | | | | heart with unstable | | | | | | angina pectoris | | | | | | ([facility]); Chest pain, | | | | [...] encounter Patient Instructions Patient Instructions Stefani Onofre, Technical Translator - 11/18/2018 10:00 AM PDT1. The cur [...] been very active, she in going to [facility] once a week. She states that she [...] cervical Cervical radiculopathy Coronary artery disease involving tonawanda coronary artery of tonawanda heart with unstable angina pectoris Stress hyperglycemia [...] Anterolateral leads Confirmed by CHRISTOPHER SIMMS MD ([id number]) on 06/01/2018 4:18:00 PM LAB RESULTS reviewed during visit today primarily from [facility]: LIPID Lab Results Component Value [...] 63 09/18/2016 RESULTS- I reviewed reports from [facility]: VAS segmental pressures legs 07/02/2018: Normal segmental pressures of lower extremities. Above data and testing is reviewed this visit; testing below is historical data unless othe rwise specified. ASSESSMENT: 1. Coronary artery disease A. Seen at [facility] they had EKG and sent her home stating it was GERD B. Seen in the emergency room at [facility] for chest pain. Sh e was schedule for stress test and discharged home. C. Stress Test 05/16/16, is maximal asymptomatic stress test, [facility] er very poor function status, achieving [...] central AI, no , trace [place], trace [place], normal aorta other than mild calcification at [...] Symptoms with moderate exe rtion of the [place] [employer] functional class. Heart failure stage [...] visit, or sooner with concerns. Stefani Hu, Technical Translator am acting as a scribe on behalf of, and in the presenc e of JOSE ALBERTO Pham. - Stefani Onofre Technical Translator 11/18/2018 10:39 I, JOSE ALBERTO Pham, personally performed the services described in this documentati on, as scribed in my presence and it is both accurate and complete. -JOSE ALBERTO Pham 11/18/2018 Portions of this chart may have been created with [employer] voice recognition software. Occasi onal wrong-word or [...] | | | | | | [place] [address] | | | | | | [phone] | | | | | | | [...] + + | Coronary artery disease involving tonawanda coronary artery of tonawanda heart with unstable | | angina pectoris (HCC) | + + | Chest pain, unspecified type | + + documented in this encounter
--- OUTSIDE RECORDS SUMMARY | ~2019-05-18 | XMS | Encounter Summary ---
Demographics + + + | Address | [address] | | | [place] [address] | + + + | Home Phone [...] | Author | [facility] | | | and Ohana | + + + | Organization | [facility] | | [...] [place] | | | | | [place] [address] | | + + + + + | Hunter Jackson | ECON | [place] | | + + + + + | Wes Jackson | ECON | [place], [place] | | + + + + + | Oziel Jackson | ECON | [place], [place] | | + + + + + Care Team Providers + +------+ + | Care Furnace Keeper Name | Role | Phone | + [...] | Cervical | [place], | [address] | | | | | radiculopath | Harsha Moreno MD | [place], | | | | | y | [address] | [place] | | | | | Procedures | [address] [place] | [address] | | | | | [place] NJX | [place] | Phone: | | | | | DX/THER SBST | [address] | [phone] | | | | | INTRLMNR | Phone: | Fax: | | | | | CRV/THRC | [phone] | [phone] | | | | | W/IMG GDN | Fax: | | | | | | [place] | [phone] | | | | | | TRIAMCINOLON [...] + + | 04/28/ | Hospital | [facility] | Harsha Selby | Cervical | | 2017 | Encounter | MED CTR XRAY [address] | T, [address] | radiculopathy; DDD | | | | [address] [place] | [place], [place] | (degenerative disc | | | | [place] [address] | [id number] | disease), cervical | | | | [phone] | | | | | | | Epic Application CoordinatorRenetta | | +--------+ + + + + [...] | | | | | | [place] [address] | | | | | | [phone] | | | | | | | [...]
--- OUTSIDE RECORDS SUMMARY | ~2019-05-18 | XMS | Encounter Summary ---
Demographics + + + | Address | [address] | | | [place] [address] | + + + | Home Phone | | + + + | Preferred Language | Unknown | + + + | Marital Status | | + + + | Christian Affiliation | Unknown | + + + | Race | Unknown | + + + | Ethnic Group | Unknown | + + + Author + + + | Author | [facility] | | | and Ohana | + + + | Organization | [facility] [...] [place] | | | | | [place] [address] | | + + + + + | Hunter Jackson | ECON | [place] | | + + + + + | Wes Jackson | ECON | [place], [place] | | + + + + + | Oziel Jackson | ECON | [place], [place] | | + + + + + Care Team Providers + +------+ + | Care Law Office Receptionist Name | Role | Phone | [...] [address] | [place] [address] | (Primary Dx) | | | | [place] | [phone] | | | | | [address] | | | | | | [phone] | | | +--------+ + + + [...] | | | | | | [place] [address] | | | | | | [phone] | | | | | | | | +--------+---------+ + + + documented as of this encounter Visit Diagnoses + + | Diagnosis | + + | Wound infection after surgery, initial encounter - Primary | + + documented in this encounter"
--- OUTSIDE RECORDS SUMMARY | ~2019-05-18 | XMS | Encounter Summary ---
Demographics + + + | Address | [address] | | | [place] [address] | + + + | Home Phone [...] | Author | [facility] | | | and Ohana | + + + | Organization | [facility] | | | and Ohana | + + + | Address | Unknown | + + + | Phone | Unavailable | + + + Support + + + + + | Name | Relationship | Address | Phone | + + + + + | Osmin Jcakson | ECON | [address] | | | | | [place] [address] | | + + + + + | Hunter Jackson | ECON | [place] | | + + + + + | Wes Jackson | ECON | [place], [place] | | + + + + + | Oziel Jackson | ECON | [place], [place] | | + + + + + Care Team Providers + +------+ + | Care Plant Security Guard Name | Role | Phone | + [...] + + | 03/31/ | Telephone | [facility] | Rodolfo Cruz, | Results | | 2014 | | MEDICINE [facility]an | MD [address] | | | | | [place] | [place] [address] | | | | | [place] [address] | [address] | | | | | [phone] | | | +--------+ + + + [...] | | | | | | [place] [address] | | | | | | [phone] | | | | | | | | +--------+---------+ + + + documented as of this encounter Visit Diagnoses Not on filedocumented in this encounter"
--- OUTSIDE RECORDS SUMMARY | ~2019-05-18 | XMS | Encounter Summary ---
Demographics + + + | Address | [address] | | | [place] [address] | + + + | Home Phone [...] | Author | [facility] | | | and Ohana | + + + | Organization | [facility] | | | and Ohana | + + + | Address | Unknown | + + + | Phone | Unavailable | + + + Support + + + + + | Name | Relationship | Address | Phone | + + + + + | Osmin Jackson | ECON | [address] | | | | | [place] [address] | | + + + + + | Hunter Jackson | ECON | [place] | | + + + + + | Wes Jackson | ECON | [place], [place] | | + + + + + | Oziel Jackson | ECON | [place], [place] | | + + + + + Care Team Providers + +------+ + | Care Weatherization Installer Name | Role | Phone | [...] | | | pain, right | | [address] [place] | | | | | upper | | [place], [place] | | | | | quadrant | | [address] | | | | | Back pain | | Phone: | | | | | Hyperlipidem | | [phone] | | | | | ia Upper GI | | Fax: | | | | | bleeding | | [phone] | | | | | Hypothyroidi | [...] + + | 11/14/ | Hospital | [facility] | Freddy, | Upper GI bleeding | | 2014 - | Encounter | MED [facility] | Rodolfo Desir MD [address] | (Primary Dx); | | | | [address] [place] | [address] [place] | Duodenal ulcer; | | 11/17/ | | [place] [address] | [place] [address] | Asthma; | | 2013 | | [phone] | [phone] | Hyperlipidemia; Back | | | | | | pain; | | | | | Peng Godinez, | Hypothyroidism; | | | | | [address] | Hypertension; | | | | | [place], [place] | Abdominal pain, | | | | | [address] | right upper | | | | [...] might be different f rom the original. [facility] Service: Hospitalist Physician Discharge Summary Pt: Soumya Jackson AGE/SEX: 78 y.o. female ROOM: [address] [place] [address] PCP: Rodolfo Cruz : 1935 Admit date: [...] upper GI bleed(duodenal ulcers) leading to ac hydaburg blood loss anemia. She is status post [...] are the prescriptions that you need to picker tender. You may get these medications from any [...] might be different f rom the original. [facility] Service: Hospitalist Progress Note Pt: Soumya Jackson AGE/SEX: 78 y.o. female ROOM: [address] [place] [address] : 1935 PCP: Rodolfo Cruz ADMIT DATE: 11/14/2013 TODAY'S DATE: 11/16/2013 Hospital Day/Hospital Course: LOS: 2 days 78 years old female past medical history of hypothyroidism, benign hypertension, hyperlipid emia came to the hospital with weakness due to upper GI bleed(duodenal ulcers) leading to ac hydaburg blood loss anemia. She is status post EGD confirming duodenal ulcers SUBJECTIVE: Patient seen and examine. She said she is feeling better. No more black stools. No chest pain, SOB, NGUYNE. No cough on recumbency. Had no orthopnea [...] mg/hr (11/16/13 0651) PRN Medications albuterol, [COMPLETED] oaqphkre-twzybeoucx-rlopwwjdwt, diphenhydrAMINE, HYDROcodone-acetami nophen, HYDROmorphone, LORazepam, [COMPLETED] meperidine, [...] upper GI bleed(duodenal ulcers) leading to ac hydaburg blood loss anemia. She is status post [...] PM PDT HOSPITALIST PROGRESS NOTE on 11/15/2013 [facility] Pt. Name/Age/: Soumya Jackson 78 y.o. 1935 Med. Record Number: [id number] Primary Care Physician: Rodolfo Cruz Date of [...] -- No results found for this basename: PHART:3,PO2ART:3,RFP3XUT:3,X1MPTXXV:3,BEART:[address] 168 hours No [...] signed by: Peng Godinez MD, 11/15/2013 12:08 [facility] Portions of this chart may have been created [facility] voice recognition software. Occas ional wrong-word or [...] [place] | | | | | | [address] | | | | | | | | +--------+---------+ + + + | 11/21/ | Office | Cardiology | Yesi, | | | 2019 | Visit | | JOSE ALBERTO Linder [address] | | | | | | [address] [place], | | | | | | [place] [address] | | | | | | [phone] | | | | | | | [...] + + + | UNIT # | [id number] | | [facility] | | | | [...] + | [facility] | [address] | [place] | | | [facility] | | [address] | | | - BLOOD BANK | [...] + + + | UNIT # | [id number] | | [facility] | | | | [...] ST. | [address] | [place] | | | [facility] | | [address] | | | - BLOOD BANK | [...] | Basophils | | K/uL | [facility] | | | | | [...] [address] | [place] | [phone] | | [facility] | | [address] | | | - LABORATORY | | | | + + + + + | [facility] | [address] | [place], [place] | | | [facility] | | [address] | | | - LABORATORY | | [...] mL/min/1.73m2 | [facility] | | | BERMUDIAN | RATE,ESTIMATED | | MEDICAL | | | | mL/min/1.44w9Mocn than | | CENTER - | | [...] + | [facility] | [address] | [place] | [phone] | | [facility] | | [address] | | | - LABORATORY | | | | + + + + + | [facility] | [address] | [place] | | | [facility] | | [address] | | | - LABORATORY | | [...] + | [facility] | [address] | [place], [place] | [phone] | | [facility] | | [address] | | | - LABORATORY | | | | + + + + + | [facility] | [address] | [place], [place] | | | [facility] | | [address] | | | - LABORATORY | | [...] + | [facility] | [address] | [place] | [phone] | | [facility] | | [address] | | | - LABORATORY | | | | + + + + + | [facility] | [address] | [place] | | | [facility] | | [address] | | | - LABORATORY | | [...] [address] | [place] | [phone] | | [facility] | | [address] | | | - LABORATORY | | | | + + + + + | [facility] | [address] | [place] | | | [facility] | | [address] | | | - LABORATORY | | [...] [address] | [place] | [phone] | | [facility] | | [address] | | | - LABORATORY | | | | + + + + + | [facility] | [address] | [place] | | | [facility] | | [address] | | | - LABORATORY | | [...] mL/min/1.73m2 | [facility] | | | BERMUDIAN | RATE,ESTIMATED | | MEDICAL | | | | mL/min/1.85d9Dkmn than | | CENTER - | | [...] + | [facility] | [address] | [place] | [phone] | | [facility] | | [address] | | | - LABORATORY | | | | + + + + + | [facility] | [address] | [place] | | | [facility] | | [address] | | | - LABORATORY | | [...] + | [facility] | [address] | [place], [place] | [phone] | | [facility] | | [address] | | | - LABORATORY | | | | + + + + + | [facility] | [address] | [place], [place] | | | [facility] | | [address] | | | - LABORATORY | | [...] + | [facility] | [address] | [place] | [phone] | | [facility] | | [address] | | | - LABORATORY | | | | + + + + + | [facility] | [address] | [place] | | | [facility] | | [address] | | | - LABORATORY | | | | + + + + + EGD (11/15/2013 2:09 PM PDT) + + | Specimen | + + | | + + + + --+ | Narrative | Performed A t | + + --+ | | [facility] | | GastroenterologyPatient Name: Soumya Sydney Date: 11/15/2013 2:09 | PROVATION | | PMMRN: [id number] #: [id number] of : 8Admit | | | Type: InpatientAge: 78[facility]: [facility]Gender: FemaleNote Status: | | | FinalizedAttending [...] the nurse | | | and the clinical research technician in the 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 Mental Status [...] 11/15/2013 2:09 PM | | | [facility], [address] [place] [address] | | | [place] [address] | | | - Normal duodenal bulb, [...] 11/15/2013 2:09 PM | | | [facility], [facility] [place], [place] | | | [address] | | + + --+ + + [...] + | [facility] | [address] | [place] | [phone] | | [facility] | | [address] | | | - LABORATORY | | | | + + + + + | [facility] | [address] | [place] | | | [facility] | | [address] | | | - LABORATORY | | [...] mL/min/1.73m2 | [facility] | | | BERMUDIAN | RATE,ESTIMATED | | MEDICAL | | | | mL/min/1.91o3Fpbd than | | CENTER - | | [...] [address] | [place] | [phone] | | [facility] | | [address] | | | - LABORATORY | | | | + + + + + | [facility] | [address] | [place] | | | [facility] | | [address] | | | - LABORATORY | | [...] + | [facility] | [address] | [place], [place] | [phone] | | [facility] | | [address] | | | - LABORATORY | | | | + + + + + | [facility] | [address] | [place], [place] | | | [facility] | | [address] | | | - LABORATORY | | [...] + | [facility] | [address] | [place] | [phone] | | [facility] | | [address] | | | - LABORATORY | | | | + + + + + | [facility] | [address] | [place] | | | [facility] | | [address] | | | - LABORATORY | | [...] [place] | | | [facility] | | [address] | | | - BLOOD BANK | [...] | | | FILTRATION | mL/min/1.73m2 | [facility] | | | BERMUDIAN | RATE,ESTIMATED | | MEDICAL | | | | mL/min/1.00a0Nwhp than | | CENTER - | | [...] [address] | [place] | [phone] | | [facility] | | [address] | | | - LABORATORY | | | | + + + + + | [facility] | [address] | [place] | | | [facility] | | [address] | | | - LABORATORY | | [...] + | [facility] | [address] | [place], [place] | [phone] | | [facility] | | [address] | | | - LABORATORY | | | | + + + + + | [facility] | [address] | [place], [place] | | | [facility] | | [address] | | | - LABORATORY | | | | + + + + + ED INFORMATION EXCHANGE (11/14/2013 10:23 AM PDT) + + | Specimen | + + | | + + + + + | Narrative | Performed At | + + + | VISIT TRACKING (3 MO.) Visit Date Location | [facility] | | Type Diagnoses | | | -------- | | | ---- 11/14/2013 10:22 [place] | | | [facility] Emergency black stool; 11/03/2013 | | | 07:39 [facility] Emergency Back | | | [...] unspecified; 09/20/2013 00:12 | | | [facility] Emergency Thoracic or | | | lumbosacral neuritis or radiculitis, unspecified; | | | | | | Flank Pain; | | | | | | back/side pain; 09/15/2013 09:18 [facility] | [place] Emergency Sprain of thoracic; | | | | | | Upper Back Pain; | | | | | | Back Pain; VISIT COUNT (1 YR.) Visits Medicaid [place] Dx | | | Location ------ --------- 4 0 | | | [facility] 4 | | | 0 Total Note: Visits indicate total | | | known visits. Medicaid [place] Dx are the number of primary diagnoses on | | | the [facility]'s non-emergent dx list. | | | | [...] | | +---+---+ + +-------+ +---------+---+---+ | qexiicxx-xcyvqegqdv-nwkldxtapt | Given | 11/16/19 | 1 spray [...] | | | | | Intravenous, ONCE, [place] 11/14/13 at | | PM PDT | [...]
--- OUTSIDE RECORDS SUMMARY | ~2019-05-18 | XMS | Encounter Summary ---
Demographics + + + | Address | [address] | | | [place] [address] | + + + | Home Phone [...] | Author | [facility] | | | and Ohana | + + + | Organization | [facility] | | [...] | | | | | [place] [address] | | + + + + + | Hunter Jackson | ECON | [place] | | + + + + + | Wes Jackson | ECON | [place], [place] | | + + + + + | Oziel Jackson | ECON | [place], [place] | | + + + + + Care Team Providers + +------+ + | Care Research Phlebotomist Name | Role | Phone | + +------+ + | Rodolfo Cruz MD | PCP | | + +------+ + Reason for Visit + + + | Reason | Comments | + + + | Follow-up | 3 month | + + + | Urticaria | | + + + | Memory Loss | | + + + Encounter Details +--------+---------+ + + + | Date | Type | Department | Care Team | Description | +--------+---------+ + + + | 01/03/ | Office | [facility] | Rodolfo Cruz, | Urticaria, chronic | | 2016 | Visit | MEDICINE [facility] | MD [address] | (Primary Dx) | | | | [address] [place] | [place] | | | | | [place] [address] | [address] | | | | | [phone] | | | +--------+---------+ + + + [...] + + + | Blood Pressure | 142/58 | 01/04/2016 11:52 AM | | | | | PDT | | + + + + + | Pulse | 46 | 01/04/2016 11:52 AM | | | | | PDT | | + + + + + | Temperature | 36.1 C (96.9 F) | 01/04/2016 11:52 AM | | | | | PDT | | + + + + + | Respiratory Rate | 16 | 01/04/2016 11:52 AM | | | | | PDT | | + + + + + | Oxygen Saturation | 96% | 01/04/2016 11:52 AM | | | | | PDT | | + + + + + | Inhaled Oxygen | - | - | | | Concentration | | | | + + + + + | Weight | 81.2 kg (179 lb) | 01/04/2016 11:52 AM | | | | | PDT | | + + + + + | Height | - | - | | + + + + + | Body Mass Index | 30.73 | 11/30/2015 11:36 AM | | | | | PDT | | + + + + + documented in this encounter Progress Notes Rodolfo Cruz MD - 01/04/2016 12:07 PM PDTFormatting of this note might be different f rom the original. Subjective: Patient ID: Soumay Jackson is a 80 y.o. female. HPI Uticaria Chronic, She has no idea what is causing this but this is improved with daily bene dryl. She has no family history of lupus or facial rash. Review of Systems Objective: Physical Exam Heent, WNL, No carotid bruit Chest CTAB Heart RR&R /s M Abd S,NT,ND,BS+ Ext, no CCor E Neuro Non-focal Lymph, no cervical, axillary, inguinal adenopathy Musculoskeletal, no gross deformity or loss or range of motion Skin, no gross lesions, no rash today Assessment: 1. Urticaria, chronic CBC with Differential DNA Double-Stranded Ab, IgG ARON Screen, Quant, Reflex Plan: Not sure what is causing this for her daily benadryl is helping. Will check about labs and RTC 2 months. Otherwise continue current medical regimen. documented [...] [place] | | | | | | [address] | | | | | | | | +--------+---------+ + + + | 11/21/ | Office | Cardiology | Yesi, | | | 2019 | Visit | | JOSE ALBERTO Linder [address] | | | | | | [place], | | | | | | [place] [address] | | | | | | [phone] | | | | | | | | +--------+---------+ + + + documented as of this encounter Results Viral Franco Reflex (01/04/2016 12:36 PM PDT) + + + + + + | Component | Value | Ref Range | Performed | Pathologist | | | | | At | Signature | + + + + + + | ARON Screen, | NegativeComment: Testing | NEG | REFERENCE | | | Qual | Performed: [place], [address] | | LAB [facility] | | | | [address], [place] | | | | | | [address] | | | | + + + [...] PAML | [address] | [place] [address] | [phone] | + + + + + DNA [...] | | | | P[facility], [address], | | | | | | [place] [address] | | | | + + + [...] [address] | [place] [address] | [phone] | + + + + + CBC [...] | | Lymphocytes | | K/uL | [facility] | [address] | [place] | [phone] | | [facility] | | [address] | | | - LABORATORY | | | | + + + + + documented in this encounter Visit Diagnoses + + | Diagnosis | + + | Urticaria, chronic - Primary Other specified urticaria | + + documented in this encounter"
--- OUTSIDE RECORDS SUMMARY | ~2019-05-18 | XMS | Encounter Summary ---
Demographics + + + | Address | [address] | | | [place] [address] | + + + | Home Phone [...] Author | [facility] | | | and Ohana | + + + | Organization | [facility] | | [...] | | | | | [place] [address] | | + + + + + | Hunter Jackson | ECON | [place] | | + + + + + | Wes Jackson | ECON | [place], [place] | | + + + + + | Oziel Jackson | ECON | [place], [place] | | + + + + + Care Team Providers + +------+ + | Care Advertising Operations Manager Name | Role | Phone | + +------+ + | Rodolfo Cruz MD | PCP | | + +------+ + Encounter Details +--------+ + + + + | Date | Type | Department | Care Team | Description | +--------+ + + + + | 10/22/ | Hospital | [facility] | Rodolfo Cruz, | Thoracic sprain and | | 2013 | Encounter | MED [facility] LAB[facility]ATORY | MD Raya DING AVGabriel | strain, subsequent | | | | [address] [place] | [place], [place] | encounter; | | | | [place] | [address] | Hyperlipidemia; | | | | [address] | | Hypertension | | | | [phone] | | | +--------+ + + + [...] [address] | | | | | | [address] [place], | | | | | | [place] [address] | | | | | | [phone] | | | | | | | [...] - 1.030 | [facility] | | | [place] | | | [facility] | | [address] | [place] | [phone] | | [facility] | | [address] | | | - LABORATORY | | | | + + + + + | [facility] | [address] | [place], [place] | | | [facility] | | [address] | | | - LABORATORY | | [...] + | [facility] | [address] | [place] | [phone] | | [facility] | | [address] | | | - LABORATORY | | | | + + + + + | [facility] | [address] | [place] | | | [facility] | | [address] | | | - LABORATORY | | [...] + | [facility] | [address] | [place] | [phone] | | [facility] | | [address] | | | - LABORATORY | | | | + + + + + | [facility] | [address] | [place] | | | [facility] | | [address] | | | - LABORATORY | | [...] + | [facility] | [address] | [place], [place] | [phone] | | [facility] | | [address] | | | - LABORATORY | | | | + + + + + | [facility] | [address] | [place], [place] | | | [facility] | | [address] | | | - LABORATORY | | [...] | 0.71 | 0.60 - 1.30 | [facility] | | | | | mg/dL | [facility] | | | | | | MEDICAL | | | | | | CENTER - | | | | | | LABORATORY | | + + + + + + | eGFR if not | >60Comment: GLOMERULAR | >=60 | [facility] | | | | FILTRATION | mL/min/1.73m2 | [facility] | | | [place] | RATE,ESTIMATED | | MEDICAL | | | | mL/min/1.51p9Fhls than | | CENTER - | | [...] + | [facility] | [address] | [place] | [phone] | | [facility] | | [address] | | | - LABORATORY | | | | + + + + + | [facility] | [address] | [place] | | | [facility] | | [address] | | | - LABORATORY | | [...] [address] | [place] | [phone] | | [facility] | | [address] | | | - LABORATORY | | | | + + + + + | [facility] | [address] | [place] | | | [facility] | | [address] | | | - LABORATORY | | [...]
--- OUTSIDE RECORDS SUMMARY | ~2019-05-18 | XMS | Encounter Summary ---
Demographics + + + | Address | [address] | | | [place] [address] | + + + | Home Phone [...] Author | [facility] | | | and Ohana | + + + | Organization | [facility] [...] SWA[place] | | | | | [place] [address] | | + + + + + | [place] | ECON | [place] | | + + + + + | Wes [place] | ECON | [place], [place] | | + + + + + | Oziel [place] | ECON | [place], [place] | | + + + + + Care Team Providers + +------+ + | Care Open Hearth Melter Name | Role | Phone | + [...] | | atherosclero | | [address] | | | | | sis of | | [place], | | | | | unspecified | | [place] [address] | | | | | type of | | Phone: | | | | | vessel, | | [phone] | | | | | unal[place]leet or | | Fax: | | | | | graft | | [phone] | | | | | Coronary | | | | | | | atherosclero | | | | | | | sis of | | | | | | | unspecified | | | | | | | type of | | | | | | | vessel, | | | | | | | unalakleet or | | | | | | [...] [address] | [place] [address] | | | | | [place] | [phone] | | | | | [address] | | | | | | [phone] | | | +--------+ + + + [...] | ORA Probe | A 18 Fr [place] sump was placed orally without difficulty under VL | | | 7 | Placement | monitoring. The stomach was decompressed, returning less than 10 | | | 5 | | ml clear bile-tinged fluid, followed by immediate removal. ORA | | | 4 | | probe was placed without difficulty using typical minimal force. | | | | | [place] videoscope used to guide OG and ORA [...] 11/05/16 1600 by | | eral | zgpl-lde-zzqvdz catheter system; | Angelica Smith, | Raquel [...] accurate I/O; All elements; All | | DISTRIBUTOR OPERATOR Student | | er | elements; All [...] | | Ventilation: EZ; Successful | | CHAIR TRIMMER | | | Technique: video scope; Airway [...] Shauna Mckinney, | | | removed by [facility]); 1039 | | RN | +--------+ + + + | Chest | 11/01/16; 0950; eze; | 11/01/16 0950 by | 11/02/16 1020 by | | Tube Y | Left:; anterior; pleural; 19 Fr.; | Chloé Choi RN | Semaj Bynum, | | 123 | midline; anterior; pericardial; | | DISTRIBUTOR OPERATOR Student | | | 19 Fr.; midline; [...] RN | | | Yes; Yes; [place]; Freyd Almaguer, | | | | | ; [...] with the | | | | | yrftqokszn-tkkf-utymjsx to the | | | | | [...] | | al | procedure documentation); | rFedy Almaguer MD | Semaj Bynum, | | Line | sedated; Left; radial artery; 20 | | DISTRIBUTOR OPERATOR Student | | | gauge; continuous blood [...] Semaj Bynum, | | | | | DISTRIBUTOR OPERATOR Student | +--------+ + + + documented [...] | | | | | | [place] [address] | | | | | | [phone] | | | | | | | [...] | | track was dilated with the vhdpojlcxd-rdwu-wculjhb to the device hub | | | [...] track was dilated with the | | gckapzehsw-zblp-fjdwftu to the device hub and after a [...]
--- OUTSIDE RECORDS SUMMARY | ~2019-05-18 | XMS | Encounter Summary ---
Demographics + + + | Address | [address] | | | [place] [address] | + + + | Home Phone [...] + | Author | [facility] | | | and Ohana | + + + | Organization | [facility] | [...] | | | | | [place] [address] | | + + + + + | Hunter [place] | ECON | [place] | | + + + + + | Wes [place] | ECON | [place], [place] | | + + + + + | Oziel [place] | ECON | [place], [place] | | + + + + + Care Team Providers + +------+ + | Care Chicken Raiser Name | Role | Phone | + [...] | | | pain, right | | [address] [place] | | | | | upper | | [place], [place] | | | | | quadrant | | [address] | | | | | Back pain | | Phone: | | | | | Hyperlipidem | | [phone] | | | | | ia Upper GI | | Fax: | | | | | bleeding | | [phone] | | | | | Hypothyroidi | [...] + + | 11/15/ | Surgery | [facility] | Lauri Garrison MD | EGD * IP RM: [id number] * | | 2013 | | MED CTR MP INTRA OP | [address], [place] | | | | | [address] | [address] [place] | | | | | [place] | [id number] | | | | | [address] | | | | | | [phone] | | | +--------+---------+ + + + [...] might be different f rom the original. [facility] Service: Hospitalist Physician Discharge Summary Pt: Soumya [place] AGE/SEX: 78 y.o. female ROOM: [address] [place] [address] PCP: Rodolfo Cruz : 1935 Admit date: [...] upper GI bleed(duodenal ulcers) leading to ac [place] blood loss anemia. She is status post [...] are the prescriptions that you need to olive picker. You may get these medications from [...] might be different f rom the original. [facility] Service: Hospitalist Progress Note Pt: Soumya [place] AGE/SEX: 78 y.o. female ROOM: 428/428-01 : 1935 PCP: Rodolfo Cruz ADMIT DATE: 11/14/2013 TODAY'S DATE: 11/16/2013 Hospital Day/Hospital Course: LOS: 2 days 78 years old female past medical history of hypothyroidism, benign hypertension, hyperlipid kirti came to the hospital with weakness due to upper GI bleed(duodenal ulcers) leading to ac [place] blood loss anemia. She is status post [...] mg/hr (11/16/13 0651) PRN Medications albuterol, [COMPLETED] idibenjl-lgqwdmjloi-ruswjtxkdn, diphenhydrAMINE, HYDROcodone-acetami nophen, HYDROmorphone, LORazepam, [COMPLETED] meperidine, [...] upper GI bleed(duodenal ulcers) leading to ac [place] blood loss anemia. She is status post [...] PM PDT HOSPITALIST PROGRESS NOTE on 11/15/2013 [facility] Pt. Name/Age/: Soumya [place] 78 y.o. 1935 Med. Record Number: [id number] Primary Care Physician: Rodolfo Cruz Date of [...] -- No results found for this basename: PHART:3,PO2ART:3,QTQ5CQI:3,P5IYLUCH:3,BEART:[address] 168 hours No [...] Once pantoprazole (PROTONIX) infusion 8 mg/hr (11/15/13 5226) albuterol, diphenhydrAMINE, HYDROcodone-acetaminophen, HYDROmorphone, LORazepam, ondansetr on, ondansetron DVT Prophylaxis Contraindicated CMS Documentation I expect this patient will be hospitalized for greater than 2-midnights and expect the post -hospital plan to be discharge to home or to an adult foster home. Electronically signed by: Peng Godinez MD, 11/15/2013 12:08 [facility] Portions of this chart may have been created withGimahhot voice recognition software. Occas ional wrong-word or [...] [place] | | | | | | [id number] | | | | | | | | +--------+---------+ + + + | 11/21/ | Office | Cardiology | Yesi, | | | 2019 | Visit | | JOSE ALBERTO Linder [address] | | | | | | [address] [place], | | | | | | [place] [address] | | | | | | [phone] | | | | | | | [...] + + + | UNIT # | [id number] | | [facility] | | | | [...] [facility] | | [address] | | | - BLOOD BANK | [...] + + + | UNIT # | [id number] | | [facility] | | | | [...] ST. | [address] | [place] | | | [facility] | | [address] | | | - BLOOD BANK | [...] + | [facility] | [address] | [place], [place] | [phone] | | [facility] | | [address] | | | - LABORATORY | | | | + + + + + | [facility] | [address] | [place], [place] | | | [facility] | | [address] | | | - LABORATORY | | [...] 7 | 7 - 18 mg/dL | [facility] | | | | | | [facility] | | | | | | MEDICAL | | | | | | CENTER - | | | | | | LABORATORY | | + + + + + + | Creatinine | 0.74 | 0.60 - 1.30 | [facility] | | | | | mg/dL | [facility] | | | | | | MEDICAL | | | | | | CENTER - | | | | | | LABORATORY | | + + + + + + | eGFR if not | >60Comment: GLOMERULAR | >=60 | [facility] | | | | FILTRATION | mL/min/1.73m2 | [facility] | | | COMORAN | RATE,ESTIMATED | | MEDICAL | | | | mL/min/1.74f3Sqzy than | | CENTER - | | [...] + | [facility] | [address] | [place] | [phone] | | [facility] | | [address] | | | - LABORATORY | | | | + + + + + | [facility] | [address] | [place] | | | [facility] | | [address] | | | - LABORATORY | | [...] [address] | [place] | [phone] | | [facility] | | [address] | | | - LABORATORY | | | | + + + + + | [facility] | [address] | [place] | | | [facility] | | [address] | | | - LABORATORY | | [...] | | | | | | ST[facility]atyana [facility] | [...] [address] | [place] | [phone] | | [facility] | | [address] | | | - LABORATORY | | | | + + + + + | [facility] [facility] | [address] | [place] | | | [facility] | | [address] | | | - LABORATORY | | [...] (H) | 4.0 - 11.0 K/uL | OL[facility] | | | | | | ST. [...] + | [facility] | [address] | [place] | [phone] | | [facility] | | [address] | | | - LABORATORY | | | | + + + + + | [facility] | [address] | [place] | | | [facility] | | [address] | | | - LABORATORY | | [...] + | [facility] | [address] | [place], [place] | [phone] | | [facility] | | [address] | | | - LABORATORY | | | | + + + + + | [facility] | [address] | [place], [place] | | | [facility] | | [address] | | | - LABORATORY | | [...] 10 | 7 - 18 mg/dL | [facility] | | | | | | [facility] | | | | | | MEDICAL | | | | | | CENTER - | | | | | | LABORATORY | | + + + + + + | Creatinine | 0.60 | 0.60 - 1.30 | [facility] | | | | | mg/dL | [facility] | | | | | | MEDICAL | | | | | | CENTER - | | | | | | LABORATORY | | + + + + + + | eGFR if not | >60Comment: GLOMERULAR | >=60 | [facility] | | | | FILTRATION | mL/min/1.73m2 | Taty[facility] | | | COMORAN | RATE,ESTIMATED | | MEDICAL | | | | mL/min/1.37u5Hbev than | | CENTER - | | [...] + | [facility] | [address] | [place] | [phone] | | [facility] | | [address] | | | - LABORATORY | | | | + + + + + | [facility] | [address] | [place] | | | [facility] | | [address] | | | - LABORATORY | | [...] + | [facility] | [address] | [place] | [phone] | | [facility] | | [address] | | | - LABORATORY | | | | + + + + + | [facility] | [address] | [place] | | | [facility] | | [address] | | | - LABORATORY | | [...] + | [facility] | [address] | [place], [place] | [phone] | | [facility] | | [address] | | | - LABORATORY | | | | + + + + + | [facility] | [address] | [place], [place] | | | [facility] | | [address] | | | - LABORATORY | | | | + + + + + EGD (11/15/2013 2:09 PM PDT) + + | Specimen | + + | | + + + + --+ | Narrative | Performed A t | + + --+ | | [facility] | | GastroenterologyPatient Name: Soumya Vazcedure Date: 11/15/2013 2:09 | PROVATION | | PMMRN: [id number] #: [id number] of : 8Admit | | | Type: InpatientAge: 78Room: [facility]Gender: FemaleNote Status: | | | FinalizedAttending MD: Lauri Garrison, [facility]cedure: Upper | | | GI endoscopyIndications: Acute post hemorrhagic anemia, | | | MelenaProviders: Lauri Garrsion MD, Judy Green RN, | | | [...] the nurse | | | and the electrical laboratory technician in the 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 Mental Status [...] On: 11/15/2013 2:09 PM | | | [facility], [facility] | | | [place] [address] | | | - Normal duodenal bulb, [...] On: 11/15/2013 2:09 PM | | | [facility], [facility] [place], [place] | | | [address] | | + + --+ + + [...] [address] | [place] | [phone] | | [facility] | | [address] | | | - LABORATORY | | | | + + + + + | [facility] | [address] | [place] | | | [facility] | | [address] | | | - LABORATORY | | [...] mL/min/1.73m2 | [facility] | | | COMORAN | RATE,ESTIMATED | | MEDICAL | | | | mL/min/1.80y7Huxs than | | CENTER - | | [...] + | [facility] | [address] | [place] | [phone] | | [facility] | | [address] | | | - LABORATORY | | | | + + + + + | [facility] | [address] | [place] | | | [facility] | | [address] | | | - LABORATORY | | [...] + | [facility] | [address] | [place], [place] | [phone] | | [facility] | | [address] | | | - LABORATORY | | | | + + + + + | [facility] | [address] | [place], [place] | | | [facility] | | [address] | | | - LABORATORY | | [...] + | [facility] | [address] | [place] | [phone] | | [facility] | | [address] | | | - LABORATORY | | | | + + + + + | [facility] [facility] | [address] | [place], [place] | | | [facility] | | [address] | | | - LABORATORY | | [...] + | [facility] | [address] | [place] | | | [facility] | | [address] | | | - BLOOD BANK | [...] mL/min/1.73m2 | [facility] | | | [place]OR[place] | RATE,ESTIMATED | | MEDICAL | | | | mL/min/1.41l8Wuhn than | | CENTER - | | [...] + | [facility] | [address] | [place], [place] | [phone] | | [facility] | | [address] | | | - LABORATORY | | | | + + + + + | [facility] | [address] | [place], [place] | | | [facility] | | [address] | | | - LABORATORY | | [...] + | [facility] | [address] | [place] | [phone] | | [facility] | | [address] | | | - LABORATORY | | | | + + + + + | [facility] | [address] | [place], [place] | | | [facility] | | [address] | | | - LABORATORY | | [...] -------- | | | ---- 11/14/2013 10:22 [place] | | | [facility] [address] [place] [address] Emergency black stool; 11/03/2013 | | | 07:39 [facility] Emergency Back | | | Pain; [...] type, unspecified; 09/20/2013 00:12 | | | [facility] Emergency Thoracic or | | | lumbosacral neuritis or radiculitis, unspecified; | | | | | | Flank Pain; | | | | | | back/side pain; 09/15/2013 09:18 [facility] | | | [place] [facility] Sprain of thoracic; | | | | | | Upper Back Pain; | | | | | | Back Pain; VISIT COUNT (1 YR.) Visits Medicaid [place] Dx | | | Location ------ --------- 4 0 | | | [facility] 4 | | | 0 Total Note: Visits indicate total | | | known visits. Medicaid [place] Dx are the number of primary diagnoses on | | | the [facility]'s non-emergent dx list. | | [...]
--- OUTSIDE RECORDS SUMMARY | ~2019-05-18 | XMS | Encounter Summary ---
Demographics + + + | Address | [address] | | | [place] [address] | + + + | Home Phone [...] Author | [facility] | | | and Ohana | + + + | Organization | [facility] | [...] [place] | | | | | [place] [address] | | + + + + + | Hunter [place] | ECON | [place] | | + + + + + | Wes [place] | ECON | [place], [place] | | + + + + + | Oziel [place] | ECON | [place], [place] | | + + + + + Care Team Providers + +------+ + | Care Visualization Developer Name | Role | Phone | [...] | | | | e disc | [facility], [place] | [address] | | | | | disease), | [address] | [address] | | | | | cervical | Phone: | 15 | | | | | [place] | [phone] | [place], [place] | | | | | stenosis of | Fax: | [address] | | | | | cervical | [phone] | Phone: | | | | | region | | [phone] | | | | | Stenosis of | | Fax: | | | | | cervical | | [phone] | | | | | spine | [...] [address] | radiculopathy | | | | [place], | [address] [place] | (Primary Dx); DDD | | | | [place] [address] | [address] | (degenerative disc | | | | [phone] | | disease), cervical; | | | [...] | | | | | | [place] [address] | | | | | | [phone] | | | | | | | [...]
--- OUTSIDE RECORDS SUMMARY | ~2019-05-18 | XMS | Encounter Summary ---
Demographics + + + | Address | [address] | | | [place] [address] | + + + | Home Phone [...] Author | [facility] | | | and [place]ana | + + + | Organization | [facility] [...] | | | | | [place] [address] | | + + + + + | [place] | ECON | [place] | | + + + + + | Wes [place] | ECON | [place], [place] | | + + + + + | Oziel [place] | ECON | [place], [place] | | + + + + + Care Team Providers + +------+ + | Care Brush Maker Name | Role | Phone | [...] [place], | | | | | | [address] | [place] [address] | | | | | | Phone: | Phone: | | | | | | [phone] | [phone] | | | | | | Fax: | Fax: | | | | | | [phone] | [phone] | +--------+ + + + + + Encounter Details +--------+---------+ + + + | Date | Type | Department | Care Team | Description | +--------+---------+ + + + | 09/08/ | Office | [facility] | Zion Valencia MD | Epistaxis (Primary | | 2014 | Visit | OTOLARYNGOLOGY [address] | [address]OG[address] | Dx) | | | | [address] | [address] [place], | | | | | [place] | [place] [address] | | | | | [address] | [phone] | | | | | [phone] | | | +--------+---------+ + + + [...] - 09/08/2014 4:07 PM PDT [facility] [place] OTOLARY[facility]Y [address] [facility] [address] OFFICE NOTE ZION VALENCIA MD Patient: JACLYN J[place]SON Admitting: MR #: [id number] LOC: PT TYPE: Adm Date: 09/08/2014 : [...] 16:07:00 Transcribed on 09/08/2014 21:04:56 by job# [id number] Confirmation #: [id number] cc: SUGAR CRUZ MD chiquitaZion cain MD - 09/08/2014 4:04 PM PDTSee dictation # [id number] signed by Zion Valencia MD at 09/08/2014 [...] [address]REET[place] | | | | | | [address] | | | | | | | | +--------+---------+ + + + | 11/21/ | Office | Cardiology | Yesi, | | | 2019 | Visit | | JOSE ALBERTO Linder [address] | | | | | | [place] | | | | | | [place] [address] | | | | | | [phone] | | | | | | | | +--------+---------+ + + + documented as of this encounter Visit Diagnoses + + | Diagnosis | + + | Epistaxis - Primary | + + documented in this encounter
--- OUTSIDE RECORDS SUMMARY | ~2019-05-18 | XMS | Encounter Summary ---
Demographics + + + | Address | [address] | | | [place] [address] | + + + | Home Phone [...] | [facility] | | | and Ohana | + + + | Organization | [facility] | | | [...] | | | | | [place] [address] | | + + + + + | [place] | ECON | [place] | | + + + + + | Wes [place] | ECON | [place], [place] | | + + + + + | Oziel [place] | ECON | [place], [place] | | + + + + + Care Team Providers + +------+ + | Care Rail Switch Operator Name | Role | Phone | [...] | (Primary Dx) | | | | [facility] | [place], [place] | | | | | [place] [address] | [address] | | | | | [phone] | | | +--------+ + + + [...] | | | | | | [place], | | | | | | [place] [address] | | | | | | [phone] | | | | | | | [...] 13 | 7 - 18 mg/dL | [facility] | | | | | | [facility] | | | | | | MEDICAL | | | | | | CENTER - | | | | | | LABORATORY | | + + + + + + | Creatinine | 0.76 | 0.60 - 1.30 | [facility] | | | | | mg/dL | [facility] | | | | | | MEDICAL | | | | | | CENTER - | | | | | | LABORATORY | | + + + + + + | eGFR if not | >60Comment: GLOMERULAR | >=60 | [facility] | | | | FILTRATION | mL/min/1.73m2 | [facility] | | | [place] | RATE,ESTIMATED | | MEDICAL | | | | mL/min/1.43m6Qvei than | | CENTER - | | [...] ST. | [address] | [place] | [phone] | | [facility] | | [address] | | | - LABORATORY | | | | + + + + + documented in this encounter Visit Diagnoses + + | Diagnosis | + + | Pulmonary nodules - Primary Other nonspecific abnormal finding of lung field | + + documented in this encounter"
--- OUTSIDE RECORDS SUMMARY | ~2019-05-18 | XMS | Encounter Summary ---
Demographics + + + | Address | [address] | | | [place] [address] | + + + | Home Phone [...] | [facility] | | | and Ohana | + + + | Organization | [facility] [...] | | | | | [place] [address] | | + + + + + | Hunter [place] | ECON | [place] | | + + + + + | Wes [place] | ECON | [place], [place] | | + + + + + | Oziel [place] | ECON | [place], [place] | | + + + + + Care Team Providers + +------+ + | Care Collar Shaper Operator Name | Role | Phone | [...] + + | 11/24/ | Telephone | [facility] | Yany, | Other (injections) | | 2014 | | PHYSIATRY [address] | [address] | | | | | [place], | [place] [facility], | | | | | [place] [address] | [place] [address] | | | | | [phone] | [phone] | | | | | | | [...] | | | | | | [place] [address] | | | | | | [phone] | | | | | | | | +--------+---------+ + + + documented as of this encounter Visit Diagnoses Not on filedocumented in this encounter"
--- OUTSIDE RECORDS SUMMARY | ~2019-05-18 | XMS | Encounter Summary ---
Demographics + + + | Address | [address] | | | [place] [address] | + + + | Home Phone [...] | Author | [facility] | | | and Ohana | + + + | Organization | [facility] [...] [place] | | | | | [place] [address] | | + + + + + | [place] | ECON | [place] | | + + + + + | Wes [place] | ECON | [place], [place] | | + + + + + | Oziel [place] | ECON | [place], [place] | | + + + + + Care Team Providers + +------+ + | Care Vtc Technician Name | Role | Phone | [...] Visit | ORTHOPEDIC SURGERY | [address] [facility] | carpometacarpal | | | | [address] [facility] | [place] | ([facility]) joint of right | | | | [place], [place] | [address] | thumb (Primary Dx); | | | | [address] | | Rotator cuff tear | | | | [phone] | | arthropathy of right | | [...] STREETER | | | | | | [address] | | | | | | | | +--------+---------+ + + + | 11/21/ | Office | Cardiology | Yesi, | | | 2019 | Visit | | JOSE ALBERTO Linder [address] | | | | | | [place], | | | | | | [place] [address] | | | | | | [phone] | | | | | | | [...]
--- OUTSIDE RECORDS SUMMARY | ~2019-05-18 | XMS | Encounter Summary ---
Demographics + + + | Address | [address] | | | [place] [address] | + + + | Home Phone [...] Author | [facility] | | | and [place] | + + + | Organization | [facility] | | [...] | | | | | [place] [address] | | + + + + + | Hunter Jackson | ECON | [place] | | + + + + + | Wes Jackson | ECON | [place], [place] | | + + + + + | Oziel Jackson | ECON | [place], [place] | | + + + + + Care Team Providers + +------+ + | Care Tube Former Operator Name | Role | Phone | [...] Heart | MD Irina | [address] | | | | | murmur | [address] | [place], | | | | | Procedures | [address] | [place] | | | | | ECHO | [place], | [address] | | | | | Complete [place] | [place] [address] | Phone: | | | | | ECHO HEART | Phone: | [phone] | | | | | [place] | [phone] | Fax: | | | | | MP[address] | Fax: | [phone] | | | | | [place] | [phone] | | | | | | ECHO [...] Heart | MD Irina | [address] | | | | | murmur | [address] | [place], | | | | | Procedures | [address] | [place] | | | | | ECHO | [place], | [address] | | | | | Complete [place] | [place] [address] | Phone: | | | | | ECHO HEART | Phone: | [phone] | | | | | [place] | [phone] | Fax: | | | | | MPLETE [place] | Fax: | [phone] | | | | | [place] | [phone] | | | | | | ECHO [...] + + | 10/25/ | Hospital | [facility] | Irina Simms, | Heart murmur | | 2015 | Encounter | MED CTR ECHO [address] | MD [address] | | | | | [address] [place] | [facility], | | | | | [place] [address] | [place] [address] | | | | | [phone] | [phone] | | | | | | | [...] | | | | | | [place] [address] | | | | | | [phone] | | | | | | | [...] At | + + + | [facility] ECHOCARDIOGRAM REPORT | [facility] | | STUDY DATE: 10/25/2014 PATIENT NAME: Soumya Jackson : | [facility] | | 1935 PCP: Rodolfo Cruz MD CLINICAL [facility] | | HISTORY/DIAGNOSIS: MURMUR A transthoracic [...] by: | | | Irina Simms MD [facility] 10/25/2014 11:39 | | | Promotion Officer: Samm Caceres, NANCYCS, RVT, RDMS | | + + + + + + + + | Performing | Address | City/State/Zipcode | Phone Number | | Organization | | | | + + + + + | [address] | [address] | [place] | [phone] | | [facility] | | [address] | | | - IMAGING | | [...]
--- OUTSIDE RECORDS SUMMARY | ~2019-05-18 | XMS | Encounter Summary ---
Demographics + + + | Address | [address] | | | [place] [address] | + + + | Home Phone [...] | Author | [facility] | | | and [place] | + + + | Organization | [facility] | [...] | | | | | [place] [address] | | + + + + + | Hunter Jackson | ECON | [place] | | + + + + + | Wes Jackson | ECON | [place], [place] | | + + + + + | Oziel Jackson | ECON | [place], [place] | | + + + + + Care Team Providers + +------+ + | Care Smash Hand Name | Role | Phone | [...] + + | 08/10/ | Telephone | [facility] | Rodolfo Cruz, | Appointment (CT ) | | 2015 | | MEDICINE [address] [place] [address] | MD Raya [address] | | | | | [place] | [place] [address] | | | | | [place] [address] | [address] | | | | | [phone] | | | +--------+ + + + [...] STREETER | | | | | | [address] | | | | | | | | +--------+---------+ + + + | 11/21/ | Office | Cardiology | Yesi, | | | 2019 | Visit | | JOSE ALBERTO Linder [address] | | | | | | [place] | | | | | | [place] [address] | | | | | | [phone] | | | | | | | | +--------+---------+ + + + documented as of this encounter Visit Diagnoses Not on filedocumented in this encounter"
--- OUTSIDE RECORDS SUMMARY | ~2019-05-18 | XMS | Encounter Summary ---
Demographics + + + | Address | [address] | | | [place] [address] | + + + | Home Phone [...] | Author | [facility] | | | and [place] | + + + | Organization | [facility] | [...] | | | | | [place] [address] | | + + + + + | Hunter Jackson | ECON | [place] | | + + + + + | Wes Jackson | ECON | [place], [place] | | + + + + + | Oziel Jackson | ECON | [place], [place] | | + + + + + Care Team Providers + +------+ + | Care Outside Property Agent Name | Role | Phone | [...] [place], | | | | | | [address] | [place] [address] | | | | | | Phone: | Phone: | | | | | | [phone] | [phone] | | | | | | Fax: | Fax: | | | | | | [phone] | [phone] | +--------+ + + + + + Encounter Details +--------+---------+ + + + | Date | Type | Department | Care Team | Description | +--------+---------+ + + + | 06/29/ | Office | [facility] | Zion Valencia MD | Epistaxis (Primary | | 2015 | Visit | OTOLARYNGOLOGY [address] | [address] [place] | Dx) | | | | [address] | [address] [place], | | | | | [place] | [place] [address] | | | | | [address] | [phone] | | | | | [phone] | | | +--------+---------+ + + + [...] MD - 06/29/2014 11:54 AM PST [facility] OTOLARYNGOLOGY [address] [facility] [address] OFFICE NOTE ZION VALENCIA MD Patient: JACLYN JACKSON Admitting: MR #: [id number] LOC: PT TYPE: Adm Date: 06/29/2014 : [...] Transcribed on 06/29/2014 12:05:14 by johnny velázquez# [id number] Confirmation #: [id number] cc: SUGAR CRUZ MD Zion porras MD - 06/29/2014 11:51 AM PSTSee dictation # [id number] signed by Zion Valencia MD at 06/29/2014 [...] [place] | | | | | | [address] | | | | | | | | +--------+---------+ + + + | 11/21/ | Office | Cardiology | Yesi, | | | 2019 | Visit | | JOSE ALBERTO Linder [address] | | | | | | [place], | | | | | | [place] [address] | | | | | | [phone] | | | | | | | | +--------+---------+ + + + documented as of this encounter Visit Diagnoses + + | Diagnosis | + + | Epistaxis - Primary | + + documented in this encounter
--- OUTSIDE RECORDS SUMMARY | ~2019-05-18 | XMS | Encounter Summary ---
Demographics + + + | Address | [address] | | | [place] [address] | + + + | Home Phone [...] | Author | [facility] | | | and [place] | + + + | Organization | [facility] | [...] [place] | | | | | [place] [address] | | + + + + + | Hunter Jackson | ECON | [place] | | + + + + + | Wes Jackson | ECON | [place], [place] | | + + + + + | Oziel Jackson | ECON | [place], [place] | | + + + + + Care Team Providers + +------+ + | Care Manager Ct Name | Role | Phone | + [...] + + | 07/29/ | Telephone | [facility] [place] | Yany, | Other | | 2016 | | PHYSIATRY [address] | [address] | | | | | [place], | [place] [facility], | | | | | [place] [address] | [place] [address] | | | | | [phone] | [phone] | | | | | | | [...] STREETER | | | | | | [address] | | | | | | | | +--------+---------+ + + + | 11/21/ | Office | Cardiology | Yesi | | | 2019 | Visit | | JOSE ALBERTO [address] | | | | | | [place] | | | | | | [place] [address] | | | | | | [phone] | | | | | | | | +--------+---------+ + + + documented as of this encounter Visit Diagnoses Not on filedocumented in this encounter"
--- OUTSIDE RECORDS SUMMARY | ~2019-05-18 | XMS | Encounter Summary ---
Demographics + + + | Address | [address] | | | [place] [address] | + + + | Home Phone [...] | Author | [facility] | | | and [place] | + + + | Organization | [facility] | | [...] | | | | | [place] [address] | | + + + + + | Hunter Jackson | ECON | [place] | | + + + + + | Wes Jackson | ECON | [place], [place] | | + + + + + | Oziel Jackson | ECON | [place], [place] | | + + + + + Care Team Providers + +------+ + | Care Fitness Teacher Name | Role | Phone | + +------+ + | Rodolfo Cruz MD | PCP | | + +------+ + Reason for Visit + + + | Reason | Comments | + + + | Follow-up | post PT | + + + | Back Pain | mid to low back pain | + + + Encounter Details +--------+---------+ + + + | Date | Type | Department | Care Team | Description | +--------+---------+ + + + | 10/06/ | Office | [facility] [place] | Yany, | Chronic low back | | 2015 | Visit | PHYSIATRY [address] | [address] | pain (Primary Dx); | | | | [place], | [address] [place], | DDD (degenerative | | | | [place] [address] | [place] [address] | disc disease), | | | | [phone] | [phone] | lumbar; Facet | | | | | | arthritis of lumbar | | | | | | region; Midline | | | | | | thoracic back pain | +--------+---------+ + + + [...] + + + | Blood Pressure | 141/76 | 10/06/2014 11:24 AM | | | | | PDT | | + + + + + | Pulse | 60 | 10/06/2014 11:24 AM | | | | | PDT [...] Weight | 85.7 kg (189 lb) | 10/06/2014 11:24 AM | | | | | PDT | | + + + + + | Height | 162.6 cm (5' 4") | 10/06/2014 11:24 AM | | | | | PDT | | + + + + + | Body Mass Index | 32.44 | 10/06/2014 11:24 AM | | | | | PDT | | + + + + + documented in this encounter Patient Instructions Patient Instructions Velvet Slade PA-C - 10/06/2014 11:49 AM PDTFacet Pain: The facet joint is located when the vertebrae (bones of the spine) connect to each other. Pain occurs with extension and rotation of the spine (bending backwards and rotating), bend ing over and lifting a heavy load, standing, first things in the morning. Images of the spi ne show facet arthritis, fluid in the facet joints. Treatment included rest, anti-inflammat ories, physical therapy focusing on core strengthening, facet steroid injections. Radiofrequency Ablation (RFA) Burning of the nerves: This procedure is typically done when the steroid injections give excellent initial relief but does not last long. It is the same procedure as the steroid injections however it take s approximately 2 hours to complete. A needle is placed inside the facet joints and then co nnected to a battery pack which heats up the needle to burn the nerves inside the joint. Yo u must not eat after midnight the night before as you are put into procedural sedation where you can hear and talk but do not feel pain. You must have a driver/refuse collector to get home from the hospital. You will feel more bruising pain to the location of the needles for approxima tely 4-5 days after this procedure, but once that clears up, you should be pain free for 8 m onths to 2 years, depends on when the nerve grows back. documented in this encounter Progress Notes Velvet Slade PA-C - 10/06/2014 11:51 AM PDTFormatting of this note might be differe nt from the original. CHIEF COMPLAINT: Chief Complaint Patient presents with Follow-up post PT Back Pain mid to low back pain HISTORY OF PRESENT ILLNESS: The patient is a 79 y.o. female being seen today in follow-up for complaints of mid to low back pain. The patient has been seen for this complaint in the past, with initial visit amy by Dr. Selby. Previously it was recommended that she participate in physical the rapy. This was performed for the last 4 weeks but she cannot see it has improved her sympto ms. She reports that the symptoms show no change. She rates the pain as 4 on scale of 1-10. She describes the [...] No abnormal bleeding PHYSICAL EXAMINATION: Filed Vitals: 10/06/14 1124 BP: 141/76 Pulse: 60 PainSc: 4 PainLoc: Back Body mass index is 32.43 kg/(m^2). GENERAL: The patient is well developed [...] has no apparent deficits with short or long-term memory. She has appropriate fund of knowledge [...] the majority of the pain to the L5/S1 michelle on. Lumbar facet loading was positive. Strength testing showed 5/5 strength throughout the lower extremities. The patient was able to heel and toe walk without difficulty. There wa s no redness, effusion, warmth or joint line tenderness in the knees or ankles. RADIOGRAPHIC REVIEW: The patient's imaging was reviewed in detail with the patient today during the visit. CT of the abdomen/pelvis from November of 2013. This was reviewed today looking specifically at the l umbar spine itself. The images show fairly significant DDD and facet arthritis at the L5-S1 level. ASSESSMENT: 1. Chronic low back pain 2. DDD (degenerative disc disease), lumbar 3. Facet arthritis of lumbar region 4. Midline thoracic back pain PLAN: 1. The patient has had significant conservative care including medications (NSAIDS and tata cotics), PT (multiple sessions over the years) and care technician. Unfortunately she cont inues to have significant discomfort. It appears to me that the pain is primarily coming fr om the L5/S1 facet joints. I did feel that she would be a good candidate for interventional procedures and I offered bilateral L5/S1 facet injections, however because she informed me she received steroid injections every 3 months in her shoulder and fingers, I think she woul d be a better candidate for RFA treatment. Thus we would have to have 2 diagnostic blocks b efore proceeding. This would be a bilateral L4 medial branch block along with a L5 dorsal r oot rami. This has been ordered, however the patient would like to consult with her step venus yin who is in the medical community before proceeding. 2. Medications have been reviewed at today's visit with no changes made at this time. She cannot take any NSAIDS due to developing ulcers. She has used voltaren in the past but is n ow using the gel. She does have hydrocodone which provides significant relief. 3. Regarding the thoracic pain, I would like her to continue with PT as they are working o n postural control. We can always try trigger point injections to see if she receives any r elief. ELECTRONICALLY SIGNED BY: Velvet Slade PA-C, 10/06/2014 SUPERVISING PHYSICIAN: Harsha Selby MD, who was [...] STREETER | | | | | | [address] | | | | | | | | +--------+---------+ + + + | 11/21/ | Office | Cardiology | Yesi, | | | 2019 | Visit | | JOSE ALBERTO [address] | | | | | | [place], | | | | | | [place] [address] | | | | | | [phone] | | | | | | | [...] | [address] | | Lumbar spondylosis 723.1 Soumya Jackson presents to the | [facility] | | fluoroscopy suite for fluoroscopically guided bilateral L4 medial [facility] | | branch blocks and bilateral [...] + | Performing | Address | City/State/[facility] | Phone Number | | Organization | | | | + + + + + | [address] | [address] | [place] | [phone] | | [facility] | | [address] | | | - IMAGING | | [...] spondylosis without myelopathy | + + | Midline thoracic back pain | + + documented in this encounter
--- OUTSIDE RECORDS SUMMARY | ~2019-05-18 | XMS | Encounter Summary ---
Demographics + + + | Address | [address] | | | [place] [address] | + + + | Home Phone [...] + | Author | [facility] | | | and [place] | + + + | Organization | [facility] [...] | | | | | [place] [address] | | + + + + + | Hunter Jackson | ECON | [place] | | + + + + + | Wes Jackson | ECON | [place], [place] | | + + + + + | Oziel Jackson | ECON | [place], [place] | | + + + + + Care Team Providers + +------+ + | Care Duct Layer Name | Role | Phone | [...] | [address] | | | | | [address] | | | | | | [phone] | | | +--------+--------+ + + + [...] | | | | | | [place] [address] | | | | | | [phone] | | | | | | | | +--------+---------+ + + + documented as of this encounter Visit Diagnoses Not on filedocumented in this encounter"
--- OUTSIDE RECORDS SUMMARY | ~2019-05-18 | XMS | Encounter Summary ---
Demographics + + + | Address | [address] | | | [place] [address] | + + + | Home Phone [...] | Author | [facility] | | | and [place] | + + + | Organization | [facility] | | [...] | | | | | [place] [address] | | + + + + + | Hunter Jackson | ECON | [place] | | + + + + + | Wes Jackson | ECON | [place], [place] | | + + + + + | Oziel Jackson | ECON | [place], [place] | | + + + + + Care Team Providers + +------+ + | Care Professional Builder Name | Role | Phone | [...] hypertension | [address] | [address] | | | | | | [address] [place] | [address] | | | | | | [place], [place] | [place], | | | | | | [address] | [place] [address] | | | | | | Phone: | Phone: | | | | | | [phone] | [phone] | | | | | | Fax: | Fax: | | | | | | [phone] | [phone] | +--------+ + + + + + [...] ST | | | | | | [address] [place] | [address] | | | | | | [place], [place] | [place], | | | | | | [address] | [place] [address] | | | | | | Phone: | Phone: | | | | | | [phone] | [phone] | | | | | | Fax: | Fax: | | | | | | [phone] | [phone] | +--------+ + + + + + [...] Pulmonary | Rodolfo Reilly MD | [address] | | | | | nodules | [address] | [place], | | | | | Procedures | AVE [place] | [place] [address] | | | | | CT Chest w | [place], [place] | Phone: | | | | | Contrast | [address] | [phone] | | | | | AFTER | Phone: | Fax: | | | | | 02/17/15 | [phone] | [phone] | | | | | | Fax: | | | | | | | [phone] | | +--------+--------+ + + + + Reason for Visit + + + | Reason | Comments | + + + | Follow-up | Back pain. Review Labs | + + + | Epistaxis | In ER at [facility] on 08/22/14 | + + + Encounter Details +--------+---------+ + + + | Date | Type | Department | Care Team | Description | +--------+---------+ + + + | 08/24/ | Office | [facility] | Rodolfo Cruz, | Insomnia (Primary | | 2015 | Visit | MEDICINE [address] | [address] | Dx); Pulmonary | | | | [address] [place] | [place] | nodules; Recurrent | | | | [facility] [place] [address] | [address] | epistaxis; Other | | | | [phone] | | specified | | | | [...] [place] | | | | | | [address] | | | | | | | | +--------+---------+ + + + | 11/21/ | Office | Cardiology | Yesi, | | | 2019 | Visit | | JOSE ALBERTO [address]inder [address] | | | | | | [place], | | | | | | [place] [address] | | | | | | [phone] | | | | | | | [...] + | [address] | [address] | [place] | [phone] | | [facility] | | [address] | | | - IMAGING | | [...] [address] | [place] | [phone] | | [facility] | | [address] | | | - LABORATORY | | [...] | samples are screened | uIU/mL | [facility] | | | | using a [...] + | [facility] | [address] | [place] | [phone] | | [facility] | | [address] | | | - LABORATORY | | [...]
--- OUTSIDE RECORDS SUMMARY | ~2019-05-18 | XMS | Encounter Summary ---
Demographics + + + | Address | [address] | | | [place] [address] | + + + | Home Phone [...] | [facility] | | | and [place] | + + + | Organization | [facility] [...] [place] | | | | | [place] [address] | | + + + + + | Hunter Jackson | ECON | [place] | | + + + + + | Wes Jackson | ECON | [place], [place] | | + + + + + | Oziel Jackson | ECON | [place], [place] | | + + + + + Care Team Providers + +------+ + | Care Net Developer Software Engineer C Name | Role | Phone | + [...] | JOSE ALBERTO Linder | [address] | | | | | type | [address] | [place], | | | | | Procedures | [address] | [place] | | | | | [place] Nuclear | [place], | [address] | | | | | Stress Test | [place] | Phone: | | | | | (Vasodilator | [address] | [phone] | | | | | ) CHG | Phone: | Fax: | | | | | MYOCARDIAL | [phone] | [phone] | | | | | SPECT | Fax: | | | | | | MULTIPLE | [phone] | | | | | | STUDIES NM | | | | | | | CV STRS TST | | | | | | | XERS&/OR RX | | | | | | | CONT ECG W/O | | | | | | | I&R NM | | | | | | [...] + + | 10/16/ | Hospital | [facility] | [place], | Chest pain, | | 2018 | Encounter | MED CTR NUCLEAR | Niyah, NUTRITIONIST [address] | unspecified type | | | | MEDICINE [address] | [place], | | | | | [place] | [place] [address] | | | | | [place] [address] | [phone] | | | | | [phone] | | | +--------+ + + + [...] STREET[place] | | | | | | [address] | | | | | | | | +--------+---------+ + + + | 11/21/ | Office | Cardiology | Yesi, | | | 2020 | Visit | | JOSE ALBERTO [address] | | | | | | [place], | | | | | | [place] [address] | | | | | | [phone] | | | | | | | [...] 76 %. Signed by: Irina Simms MD [facility] | | | 10/16/2017, 14:56 | | + + + + + --+ | Narrative | Performed At | + + --+ | | [facility] | | NUCLEAR MEDICINE STRESS TEST REPORT Patient Name: Soumya Jackson | | | Study Date: 10/16/2017 Primary Care Provider: FLORA Morgan MRN: | | | [id number] : 1935 Age: 82 y.o. Gender: female [...] | | | | | | Starting [facility] 10/16/17 at 0947, For | | | | | | | 1 dose, Nuclear Medicine | | | | | | + +--------+ + +------+------+ +---+---+ | | | +---+---+ documented in this encounter"
--- OUTSIDE RECORDS SUMMARY | ~2019-05-18 | XMS | Encounter Summary ---
Demographics + + + | Address | [address] | | | [place] [address] | + + + | Home Phone [...] | [facility] | | | and [place] | + + + | Organization | [facility] [...] [place] | | | | | [place] [address] | | + + + + + | Hunter Jackson | ECON | [place] | | + + + + + | Wes Jackson | ECON | [place], [place] | | + + + + + | Oziel Jackson | ECON | [place], [place] | | + + + + + Care Team Providers + +------+ + | Care Agricultural Mechanic Name | Role | Phone | [...] | | | | | cervical | [address] | | | | | | region DDD | Phone: | | | | | | (degenerativ | [phone] | | | | | | e disc | Fax: | | | | | | disease), | [phone] | | | | | | cervical [...] + + | 07/23/ | Telephone | [facility] [place] | Yany, | Results, Imaging | | 2017 | | PHYSIATRY [address] | [address] | (Results) | | | | [place], | [place] [facility], | | | | | [place] [address] | [place] [address] | | | | | [phone] | [phone] | | | | | | | [...] | | | | | | [place] [address] | | | | | | [phone] | | | | | | | [...]
--- OUTSIDE RECORDS SUMMARY | ~2019-05-18 | XMS | Encounter Summary ---
Demographics + + + | Address | [address] | | | [place] [address] | + + + | Home Phone [...] | Author | [facility] | | | and [place] | + + + | Organization | [facility] | | [...] | | | | | [place] [address] | | + + + + + | Hunter Jackson | ECON | [place] | | + + + + + | Wes Jackson | ECON | [place], [place] | | + + + + + | Oziel Jackson | ECON | [place], [place] | | + + + + + Care Team Providers + +------+ + | Care Quality Management Nurse Name | Role | Phone | [...] + | 02/04/ | Office | [facility] | Ulysses Jensen, | Rotator cuff | | 2012 | Visit | ORTHOPEDIC SURGERY | [address] | syndrome of right | | | | [address] [facility] | [place], [place] | shoulder (Primary | | | | [place], [place] | [address] | Dx); [facility] arthritis | | | | [address] | | | | | | [phone] | | | +--------+---------+ + + + [...] | | | | | | [place] [address] | | | | | | [phone] | | | | | | | [...] | | (Comment | | Intramuscular, ONCE, [facility] 02/04/13 | | AM PDT | [...] | | | | | Infiltration, ONCE, [facility] 02/04/13 | | AM PDT | [...] | | | | | Infiltration, ONCE, [facility] 02/04/13 | | AM PDT | [...] PDT | | | | | ONCE, [facility] 02/04/13 at 1015, For 1 | | | | | | | dose, Shake well. Not for IV | | | | | | | use., | | | | | | + +-------+ +-------+---+---+ +---+---+ | | | +---+---+ documented in this encounter
--- OUTSIDE RECORDS SUMMARY | ~2019-05-18 | XMS | Encounter Summary ---
Demographics + + + | Address | [address] | | | [place] [address] | + + + | Home Phone [...] Author | [facility] | | | and [place]ana | + + + | Organization | [facility] | [...] | | | | | [place] [address] | | + + + + + | Hunter Jackson | ECON | [place] | | + + + + + | Wes Jackson | ECON | [place], [place] | | + + + + + | Oziel Jackson | ECON | [place], [place] | | + + + + + Care Team Providers + +------+ + | Care Spiral Tube Winder Helper Name | Role | Phone | [...] | 01/20/ | Refill | [facility] | Rodolfo Cruz, | Medication Refill | | 2013 | | MEDICINE [address] | MD [address] | | | | | [place] | [place] [address] | | | | | [place] [address] | [address] | | | | | [phone] | | | +--------+--------+ + + + [...] | | | | | | [place] [address] | | | | | | [phone] | | | | | | | | +--------+---------+ + + + documented as of this encounter Visit Diagnoses Not on filedocumented in this encounter"
--- OUTSIDE RECORDS SUMMARY | ~2019-05-18 | XMS | Encounter Summary ---
Demographics + + + | Address | [address] | | | [place] [address] | + + + | Home Phone [...] Author | [facility] | | | and Ohana | + + + | Organization | [facility] | [...] | | | | | [place] [address] | | + + + + + | Hunter Jackson | ECON | [place] | | + + + + + | Wes Jackson | ECON | [place], [place] | | + + + + + | Oziel Jackson | ECON | [place], [place] | | + + + + + Care Team Providers + +------+ + | Care Foot Doctor Name | Role | Phone | [...] + + | 08/18/ | Office | [facility] | Ulysses Jensen, | Rotator cuff | | 2014 | Visit | ORTHOPEDIC SURGERY | MD Danny PARHAM | syndrome of right | | | | [address] [facility] | [place] [address] | shoulder (Primary | | | | [place] | [address] | Dx); [facility] arthritis | | | | [address] | | | | | | [phone] | | | +--------+---------+ + + + [...] STREETER | | | | | | [id number] | | | | | | | | +--------+---------+ + + + | 11/21/ | Office | Cardiology | Yesi, | | | 2020 | Visit | | JOSE ALBERTO Linder [address] | | | | | | [place], | | | | | | [place] [address] | | | | | | [phone] | | | | | | | [...]
--- OUTSIDE RECORDS SUMMARY | ~2019-05-18 | XMS | Encounter Summary ---
Demographics + + + | Address | [address] | | | [place] [address] | + + + | Home Phone [...] | Author | [facility] | | | and [place] | + + + | Organization | [facility] [...] SWA[place] | | | | | [place] [address] | | + + + + + | Hunter Jackson | ECON | [place] | | + + + + + | Wes Jackson | ECON | [place], [place] | | + + + + + | Oziel Jackson | ECON | [place], [place] | | + + + + + Care Team Providers + +------+ + | Care Transfer Man Name | Role | Phone | + [...] [address] | | | | | [place], | [place], | | | | | [place] [address] | [place] [address] | | | | | [phone] | [phone] | | | | | | | [...] STREETER | | | | | | [address] | | | | | | | | +--------+---------+ + + + | 11/21/ | Office | Cardiology | Yesi, | | | 2019 | Visit | | JOSE ALBERTO Linder [address] | | | | | | [place] | | | | | | [place] [address] | | | | | | [phone] | | | | | | | | +--------+---------+ + + + documented as of this encounter Visit Diagnoses Not on filedocumented in this encounter"
--- OUTSIDE RECORDS SUMMARY | ~2019-05-18 | XMS | Encounter Summary ---
Demographics + + + | Address | [address] | | | [place] [address] | + + + | Home Phone [...] + | Author | [facility] | | | and [place] | + + + | Organization | [facility] | | [...] [place] | | | | | [place] [address] | | + + + + + | Hunter Jackson | ECON | [place] | | + + + + + | Wes Jackson | ECON | [place], [place] | | + + + + + | Oziel Jackson | ECON | [place], [place] | | + + + + + Care Team Providers + +------+ + | Care Chimney Builder Name | Role | Phone | + +------+ + | Gunderson, Kellie PA | PCP | | + +------+ + Encounter Details +--------+ + + + + | Date | Type | Department | Care Team | Description | +--------+ + + + + | 10/16/ | Hospital | [facility] | Irina Simms, | Chest pain due to | | 2017 | Encounter | MED CTR CV INTRA OP | [address] | myocardial ischemia, | | | | [address] | [place], | unspecified | | | | [place], [place] | [place] [address] | ischemic chest pain | | | | [address] | [phone] | type (HCC) | | | | [phone] | | | +--------+ + + + [...] You cannot be awakened Date Last Reviewed: 02/27/201619992697-5265 [employer]. [address] [place] [address], [place] [address]. All righ ts reserved. This information is [...] by your healthcare provider Date Last Reviewed: 07/07/201319998206-8224 [employer]. [address] [place] [address], [place] [address]. All righ ts reserved. This information is [...] STREETER | | | | | | [address] | | | | | | | | +--------+---------+ + + + | 11/21/ | Office | Cardiology | Yesi | | | 2019 | Visit | | JOSE ALBERTO Linder [address] | | | | | | [place] | | | | | | [place] [address] | | | | | | [phone] | | | | | | | [...] (1935) OF PROCEDURE: | | | 10/16/2016 CLINICAL COUNSELOR: Irina [place] MD PROCEDURES | | | [...]
--- OUTSIDE RECORDS SUMMARY | ~2019-05-18 | XMS | Encounter Summary ---
Demographics + + + | Address | [address] | | | [place] [address] | + + + | Home Phone [...] | [facility] | | | and [place] | + + + | Organization | [facility] | | | [...] | | | | | [place] [address] | | + + + + + | Hunter Jackson | ECON | [place] | | + + + + + | Wes Jackson | ECON | [place], [place] | | + + + + + | Oziel Jackson | ECON | [place], [place] | | + + + + + Care Team Providers + +------+ + | Care Recreational Programs Director Name | Role | Phone | + +------+ + | Rodolfo Cruz MD | PCP | | + +------+ + Encounter Details +--------+ + + + + | Date | Type | Department | Care Team | Description | +--------+ + + + + | 02/16/ | Orders Only | [facility] | Rodolfo Cruz, | Pulmonary nodule | | 2013 | | MEDICINE [address] [place] [address] | MD [address] | (Primary Dx) | | | | [facility] | [place], [place] | | | | | [place] [address] | [address] | | | | | [phone] | | | +--------+ + + + [...] [place] | | | | | | [address] | | | | | | | | +--------+---------+ + + + | 11/21/ | Office | Cardiology | Yesi, | | | 2019 | Visit | | JOSE ALBERTO Linder [address] | | | | | | [place], | | | | | | [place] [address] | | | | | | [phone] | | | | | | | | +--------+---------+ + + + documented as of this encounter Results Creatinine (06/16/2014 11:35 AM [...] [facility] | | | [place] | | | MEDICAL | | | [...] + | [facility] | [address] | [place] | [phone] | | [facility] | | [address] | | | - LABORATORY | | | | + + + + + | [facility] | [address] | [place] | | | [facility] | | [address] | | | - LABORATORY | | [...] + | [facility] | [address] | [place] | [phone] | | [facility] | | [address] | | | - LABORATORY | | | | + + + + + | [facility] | [address] | [place] | | | [facility] | | [address] | | | - LABORATORY | | | | + + + + + documented in this encounter Visit Diagnoses + + | Diagnosis | + + | Pulmonary nodule - Primary Solitary pulmonary nodule | + + documented in this encounter"
--- OUTSIDE RECORDS SUMMARY | ~2019-05-18 | XMS | Encounter Summary ---
Demographics + + + | Address | [address] | | | [place] [address] | + + + | Home Phone [...] + | Author | [facility] | | | and [place]ana | + + + | Organization | [facility] [...] [place] | | | | | [place] [address] | | + + + + + | Hunter Jackson | ECON | [place] | | + + + + + | Wes Jackson | ECON | [place], [place] | | + + + + + | Oziel Jackson | ECON | [place], [place] | | + + + + + Care Team Providers + +------+ + | Care Supervisor Grove Name | Role | Phone | + [...] + + | 10/14/ | Telephone | [facility] | Yesi, | Other (questions | | 2018 | | CARDIOLOGY [address] | JOSE ALBERTO Linder [address] | about test) | | | | [place], | [place], | | | | | [place] [address] | [place] [address] | | | | | [phone] | [phone] | | | | | | | [...] STREETER | | | | | | [address] | | | | | | | | +--------+---------+ + + + | 11/21/ | Office | Cardiology | Yesi, | | | 2019 | Visit | | JOSE ALBERTO Linder [address] | | | | | | [place] | | | | | | [place] [address] | | | | | | [phone] | | | | | | | | +--------+---------+ + + + documented as of this encounter Visit Diagnoses Not on filedocumented in this encounter"
--- OUTSIDE RECORDS SUMMARY | ~2019-05-18 | XMS | Encounter Summary ---
Demographics + + + | Address | [address] | | | [place] [address] | + + + | Home Phone [...] | Author | [facility] | | | and [place] | + + + | Organization | [facility] | | [...] [place] | | | | | [place] [address] | | + + + + + | Hunter Jackson | ECON | [place] | | + + + + + | Wes Jackson | ECON | [place], [place] | | + + + + + | Oziel Jackson | ECON | [place], [place] | | + + + + + Care Team Providers + +------+ + | Care Assignment Editor Name | Role | Phone | + +------+ + | Gunderson, Kellie PA | PCP | | + +------+ + Encounter Details +--------+---------+ + + + | Date | Type | Department | Care Team | Description | +--------+---------+ + + + | 10/16/ | Office | [facility] | [place], | Aortic valve | | 2018 | Visit | CARDIOLOGY [address] | JOSE ALBERTO Linder [address] | insufficiency, | | | | [place], | [place], | etiology of cardiac | | | | [place] [address] | [place] [address] | valve disease | | | | [phone] | [phone] | unspecified (Primary | | | | | | Dx); Coronary | | | | | | artery disease | | | | | | involving tyonek | | | | | | coronary artery of | | | | | | tyonek heart with | | | | | [...] has a sleep apnea study scheduled in [employer] next month MEDICAL, SURGICAL, AND PERSONAL HISTORY Past Medical, Surgical, Family, and Social History are reviewed in [facility]. 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 Coronary artery disease A. Seen at [facility] they had EKG and sent her home stating it was GERD B. Seen in the emergency room at [facility] for chest pain. Sh e was schedule for stress test and discharged home. C. Stress Test 05/16/16, is maximal asymptomatic stress test, [facility] er very poor function status, achieving [...] central AI, no , trace TR, trace IA, normal aorta other than mild calcification at [...] She is in a class I-II of [place] [employer] functional class.on physical examination the [...] this chart may have been created with [employer] voice recognition software. Occasi onal wrong-word or [...] STREETER | | | | | | [address] | | | | | | | | +--------+---------+ + + + | 11/21/ | Office | Cardiology | Yesi, | | | 2019 | Visit | | JOSE ALBERTO Linder [address] | | | | | | [place] | | | | | | [place] [address] | | | | | | [phone] | | | | | | | [...] involving | | | | | | tyonek coronary | | | | | | artery of tyonek | | | | | | heart with unstable | | | | | | angina pectoris | | | | | | ([facility]) Essential | | | | | | hypertension with | | | | | | goal blood pressure | | | | | | less than 130/80 | | | | | | Inflammation of | | | | | | blood vessels ([facility]) | | | | | [...] MD | | | | | | ([id number]) on 10/16/2017 | | | | | [...] + + | Coronary artery disease involving tyonek coronary artery of tyonek heart with unstable | | angina pectoris [...]
--- OUTSIDE RECORDS SUMMARY | ~2019-05-18 | XMS | Encounter Summary ---
Demographics + + + | Address | [address] | | | [place] [address] | + + + | Home Phone [...] | Author | [facility] | | | and [place] | + + + | Organization | [facility] | [...] | | | | | [place] [address] | | + + + + + | Hunter Jackson | ECON | [place] | | + + + + + | Wes Jackson | ECON | [place], [place] | | + + + + + | Oziel Jackson | ECON | [place], [place] | | + + + + + Care Team Providers + +------+ + | Care Senior Linux Unix Engineer Name | Role | Phone | [...] + + | 11/24/ | Telephone | [facility] | Rodolfo Cruz, | Appointment | | 2013 | | MEDICINE [address] [place] [address] | MD [address] | | | | | [place] | [place] [address] | | | | | [place] [address] | [address] | | | | | [phone] | | | +--------+ + + + [...] | | | | | | [place] [address] | | | | | | [phone] | | | | | | | | +--------+---------+ + + + documented as of this encounter Visit Diagnoses Not on filedocumented in this encounter"
--- OUTSIDE RECORDS SUMMARY | ~2019-05-18 | XMS | Encounter Summary ---
Demographics + + + | Address | [address] | | | [place] [address] | + + + | Home Phone [...] | Author | [facility] | | | and [place] | + + + | Organization | [facility] | [...] | | | | | [place] [address] | | + + + + + | Hunter Jackson | ECON | [place] | | + + + + + | Wes Jackson | ECON | [place], [place] | | + + + + + | Oziel Jackson | ECON | [place], [place] | | + + + + + Care Team Providers + +------+ + | Care Taximeter Repairer Name | Role | Phone | [...] | 01/26/ | Refill | [facility] | Rodolfo Cruz, | Medication Refill | | 2016 | | MEDICINE [address] | MD [address] | | | | | [place] | [place] [address] | | | | | [place] [address] | [address] | | | | | [phone] | | | +--------+--------+ + + + [...] | | | | | | [place] [address] | | | | | | [phone] | | | | | | | | +--------+---------+ + + + documented as of this encounter Visit Diagnoses Not on filedocumented in this encounter"
--- OUTSIDE RECORDS SUMMARY | ~2019-05-18 | XMS | Encounter Summary ---
Demographics + + + | Address | [address] | | | [place] [address] | + + + | Home Phone [...] + + | Author | [facility] | | | and [place] | + + + | Organization | [facility] | | [...] | | | | | [place] [address] | | + + + + + | Hunter Jackson | ECON | [place] | | + + + + + | Wes Jackson | ECON | [place], [place] | | + + + + + | Oziel Jackson | ECON | [place], [place] | | + + + + + Care Team Providers + +------+ + | Care Certified Respiratory Therapist Name | Role | Phone | [...] | 10/20/ | Office | [facility] | [place] | Bronchitis (Primary | | 2016 | Visit | CARE [address] | Colby Cooper MD | Dx) | | | | [place] [address] | [address] | | | | | [address] | [place] | | | | | [phone] | [address] | | | | | | | [...] [place] | | | | | | [address] | | | | | | | | +--------+---------+ + + + | 11/21/ | Office | Cardiology | Yesi, | | | 2019 | Visit | | JOSE ALBERTO Linder [address] | | | | | | [place], | | | | | | [place] [address] | | | | | | [phone] | | | | | | | | +--------+---------+ + + + documented as of this encounter Visit Diagnoses + + | Diagnosis | + + | Bronchitis - Primary Bronchitis, not specified as acute or chronic | + + documented in this encounter
--- OUTSIDE RECORDS SUMMARY | ~2019-05-18 | XMS | Encounter Summary ---
Demographics + + + | Address | [address] | | | [place] [address] | + + + | Home Phone [...] Author | [facility] | | | and [place] | + + + | Organization | [facility] [...] | | | | | [place] [address] | | + + + + + | Hunter Jackson | ECON | [place] | | + + + + + | Wes Jackson | ECON | [place], [place] | | + + + + + | Oziel Jackson | ECON | [place], [place] | | + + + + + Care Team Providers + +------+ + | Care Promotional Representative Name | Role | Phone | [...] | 01/26/ | Refill | [facility] | Rodolfo Cruz, | Medication Refill | | 2015 | | MEDICINE [address] | MD [address] | | | | | [place] | [place] [address] | | | | | [place] [address] | [address] | | | | | [phone] | | | +--------+--------+ + + + [...] | | | | | | [place] [address] | | | | | | [phone] | | | | | | | | +--------+---------+ + + + documented as of this encounter Visit Diagnoses Not on filedocumented in this encounter"
--- OUTSIDE RECORDS SUMMARY | ~2019-05-18 | XMS | Encounter Summary ---
Demographics + + + | Address | [address] | | | [place] [address] | + + + | Home Phone [...] | Author | [facility] | | | and [place] | + + + | Organization | [facility] | [...] | | | | | [place] [address] | | + + + + + | Hunter Jackson | ECON | [place] | | + + + + + | Wes Jackson | ECON | [place], [place] | | + + + + + | Oziel Jackson | ECON | [place], [place] | | + + + + + Care Team Providers + +------+ + | Care Barrel Brander Name | Role | Phone | + [...] + + | 02/18/ | Refill | [facility] | Bree Nails RN | Medication Refill | | 2011 | | MEDICINE [facility] [address] | | | | | | [place] | | | | | | [place] [address] | | | | | | [phone] | | | +--------+--------+ + + + [...] | | | | | | [place] [address] | | | | | | [phone] | | | | | | | | +--------+---------+ + + + documented as of this encounter Visit Diagnoses Not on filedocumented in this encounter"
--- OUTSIDE RECORDS SUMMARY | ~2019-05-18 | XMS | Encounter Summary ---
Demographics + + + | Address | [address] | | | [place] [address] | + + + | Home Phone [...] | Author | [facility] | | | and [place] | + + + | Organization | [facility] | [...] | | | | | [place] [address] | | + + + + + | Hunter Jackson | ECON | [place] | | + + + + + | Wes Jackson | ECON | [place], [place] | | + + + + + | Oziel Jackson | ECON | [place], [place] | | + + + + + Care Team Providers + +------+ + | Care Microbiology Lab Analyst Name | Role | Phone | [...] right (Primary Dx) | | | | [facility] | [place], [place] | | | | | [place] [address] | [address] | | | | | [phone] | | | +--------+ + + + [...] STREETER | | | | | | [address] | | | | | | | | +--------+---------+ + + + | 11/21/ | Office | Cardiology | Yesi, | | | 2019 | Visit | | JOSE ALBERTO Linder [address] | | | | | | [place] | | | | | | [place] [address] | | | | | | [phone] | | | | | | | [...] [address] | [place] | [phone] | | [facility] | | [address] | | | - LABORATORY | | | | + + + + + documented in this encounter Visit Diagnoses + + | Diagnosis | + + | Pulmonary nodule, right - Primary Solitary pulmonary nodule | + + documented in this encounter"
--- OUTSIDE RECORDS SUMMARY | ~2019-05-18 | XMS | Encounter Summary ---
Demographics + + + | Address | [address] | | | [place] [address] | + + + | Home Phone [...] | Author | [facility] | | | and [place] | + + + | Organization | [facility] [...] | | | | | [place] [address] | | + + + + + | Hunter Jackson | ECON | [place] | | + + + + + | Wes Jackson | ECON | [place], [place] | | + + + + + | Oziel Jackson | ECON | [place], [place] | | + + + + + Care Team Providers + +------+ + | Care Halal Butcher Name | Role | Phone | + [...] [place], | | | | | | [address] | [place] [address] | | | | | | Phone: | Phone: | | | | | | [phone] | [phone] | | | | | | Fax: | Fax: | | | | | | [phone] | [phone] | +--------+ + + + + + Reason for Visit + + + | Reason | Comments | + + + | Follow-up | | + + + Encounter Details +--------+---------+ + + + | Date | Type | Department | Care Team | Description | +--------+---------+ + + + | 02/17/ | Office | [facility] | Rodolfo Cruz, | Vertigo (Primary Dx) | | 2011 | Visit | MEDICINE [place] | [address] | | | | | [address] | [place] [address] | | | | | [place] | [address] | | | | | [address] | | | | | | [phone] | | | +--------+---------+ + + + [...] three weeks. She [facility] and [facility] ER for this. She [...] vomiting, diarrhea, constipation and abdominal diste ntion. Rubicon pain, black or bloody stools, excessive gas [...] STREETER | | | | | | [id number] | | | | | | | | +--------+---------+ + + + | 11/21/ | Office | Cardiology | Yesi, | | | 2019 | Visit | | JOSE ALBERTO Linder [address] | | | | | | [place], | | | | | | [place] [address] | | | | | | [phone] | | | | | | | [...]
--- OUTSIDE RECORDS SUMMARY | ~2019-05-18 | XMS | Encounter Summary ---
Demographics + + + | Address | [address] | | | [place] [address] | + + + | Home Phone [...] [facility] | | | and Ohana | + + + | Organization | [facility] | | [...] | | | | | [place] [address] | | + + + + + | Hunter Jackson | ECON | [place] | | + + + + + | Wes Jackson | ECON | [place], [place] | | + + + + + | Oziel Jackson | ECON | [place], [place] | | + + + + + Care Team Providers + +------+ + | Care Dialysis Patient Care Technician Name | Role | Phone | [...] + + | 11/06/ | Office | [facility] | Rodolfo Cruz, | Hives of unknown | | 2016 | Visit | MEDICINE [address] | MD [address] | origin (Primary Dx); | | | | [address] [place] | [place] [address] | Stress reaction; | | | | [place] [address] | [address] | Hyperglycemia; Pain | | | | [phone] | | | +--------+---------+ + + + [...] No energy. Wi th ER visit in [place] last week. This is persisting except for [...] | | | | | | [place] [address] | | | | | | [phone] | | | | | | | [...] - 1.030 | [facility] | | | [place] | | | [facility] | | [...] [address] | [place] | [phone] | | [facility] | | [address] | | | - LABORATORY | | [...] ST. | [address] | [place], [place] | [phone] | | [facility] | | [address] | | | - LABORATORY | | [...] | | | FILTRATION | mL/min/1.73m2 | [facility] | | | [place] | RATE,ESTIMATED | | MEDICAL | | | | mL/min/1.35m6Cujt than | | CENTER - | | [...] | | | | | mg/dL | [facility] | | | | | | MEDICAL [...] + | [facility] | [address] | [place] | [phone] | | [facility] | | [address] | | | - LABORATORY | | [...] | [address] | [place] | [phone] | | [facility] | | [address] | | | - LABORATORY | | [...]
--- OUTSIDE RECORDS SUMMARY | ~2019-05-18 | XMS | Encounter Summary ---
Demographics + + + | Address | [address] | | | [place] [address] | + + + | Home Phone [...] | Author | [facility] | | | and Ohana | + + + | Organization | [facility] | [...] | | | | | [place] [address] | | + + + + + | Hunter Jackson | ECON | [place] | | + + + + + | Wes Jackson | ECON | [place], [place] | | + + + + + | Oziel Jackson | ECON | [place], [place] | | + + + + + Care Team Providers + +------+ + | Care Animal Husbandry Manager Name | Role | Phone | [...] [place], | | | | | | [address] | [place] [address] | | | | | | Phone: | Phone: | | | | | | [phone] | [phone] | | | | | | Fax: | Fax: | | | | | | [phone] | [phone] | +--------+ + + + + + Reason for Visit + + + | Reason | Comments | + + + | Hypertension | | + + + Encounter Details +--------+---------+ + + + | Date | Type | Department | Care Team | Description | +--------+---------+ + + + | 06/22/ | Office | [facility] | Rodolfo Cruz, | Other specified | | 2016 | Visit | MEDICINE [facility] [place] | [address] | hypothyroidism | | | | Street [place] | [place] [address] | (Primary Dx); | | | | [place] [address] | [address] | Depression with | | | | [phone] | | anxiety; Varicose | | | [...] 06/05/2010 and no changes required: Born in [facility] since 1965 Marital status: Children: 6, 5 living, 10 grandchildren 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 Refill the lasix, RTC 3 m [facility] with labs prior Otherwise continue current medical [...] STREETER | | | | | | [address] | | | | | | | | +--------+---------+ + + + | 11/21/ | Office | Cardiology | Yesi, | | | 2019 | Visit | | JOSE ALBERTO Linder [address] | | | | | | [place], | | | | | | [place] [address] | | | | | | [phone] | | | | | | | [...] ST. | [address] | [place] | [phone] | | [facility] | | [address] | | | - LABORATORY | | [...] | 0.77 | 0.60 - 1.30 | [facility] | | | | | mg/dL | [facility] | | | | | | MEDICAL | | | | | | CENTER - | | | | | | LABORATORY | | + + + + + + | eGFR if not | >60Comment: GLOMERULAR | >=60 | DERBY | | | | FILTRATION | mL/min/1.73m2 | [facility] | | | [facility] | RATE,ESTIMATED | | MEDICAL | | | | mL/min/1.08h0Aefb than | | CENTER - | | [...] [address] | [place] | [phone] | | [facility] | | [address] | | | - LABORATORY | | [...] ST. | [address] | [place] | [phone] | | [facility] | | [address] | | | - LABORATORY | | [...]
--- OUTSIDE RECORDS SUMMARY | ~2019-05-18 | XMS | Encounter Summary ---
Demographics + + + | Address | [address] | | | [place] [address] | + + + | Home Phone [...] | Author | [facility] | | | and Ohana | + + + | Organization | [facility] | [...] | | | | | [place] [address] | | + + + + + | Hunter Jackson | ECON | [place] | | + + + + + | Wes Jackson | ECON | [place], [place] | | + + + + + | Oziel Jackson | ECON | [place], [place] | | + + + + + Care Team Providers + +------+ + | Care Screener And Blender Operator Name | Role | Phone | + +------+ + | Rodolfo Cruz MD | PCP | | + +------+ + Encounter Details +--------+ + + + + | Date | Type | Department | Care Team | Description | +--------+ + + + + | 03/21/ | Abstract | [facility] | Rodolfo Cruz, | | | 2013 | | MEDICINE [address] [place] [address] | MD [address] | | | | | [facility] | [place] | | | | | [place] [address] | [address] | | | | | [phone] | | | +--------+ + + + [...] [place] | | | | | | [address] | | | | | | | | +--------+---------+ + + + | 11/21/ | Office | Cardiology | Yesi, | | | 2019 | Visit | | JOSE ALBERTO Linder [address] | | | | | | [place], | | | | | | [place] [address] | | | | | | [phone] | | | | | | | [...]
--- OUTSIDE RECORDS SUMMARY | ~2019-05-18 | XMS | Encounter Summary ---
Demographics + + + | Address | [address] | | | [place] [address] | + + + | Home Phone [...] | Author | [facility] | | | and Ohana | + + + | Organization | [facility] | | [...] | | | | | [place] [address] | | + + + + + | Hunter Jackson | ECON | [place] | | + + + + + | Wes Jackson | ECON | [place], [place] | | + + + + + | Oziel Jackson | ECON | [place], [place] | | + + + + + Care Team Providers + +------+ + | Care Forestry Fire Aid Name | Role | Phone | [...] | [address] | | | | | [address] | | | | | | [phone] | | | +--------+--------+ + + + [...] | | | | | | [place] [address] | | | | | | [phone] | | | | | | | | +--------+---------+ + + + documented as of this encounter Visit Diagnoses Not on filedocumented in this encounter"
--- OUTSIDE RECORDS SUMMARY | ~2019-05-18 | XMS | Encounter Summary ---
Demographics + + + | Address | [address] | | | [place] [address] | + + + | Home Phone [...] + | Author | [facility] | | | and Ohana | + + + | Organization | [facility] | [...] S[place] | | | | | [place] [address] | | + + + + + | Hunter Jackson | ECON | [place] | | + + + + + | Wes Jackson | ECON | [place], [place] | | + + + + + | Oziel Jackson | ECON | [place], [place] | | + + + + + Care Team Providers + +------+ + | Care Ornamental Rail Installer Name | Role | Phone | [...] | | | | | [place] | [address] | | | | | | stenosis of | Phone: | | | | | | cervical | [phone] | | | | | | region | Fax: | | | | | | Stenosis of | [phone] | | | | | | cervical [...] | disc disease), | | | | [place], | [facility], | cervical (Primary | | | | [place] [address] | [place] [address] | Dx); [place] | | | | [phone] | [phone] | stenosis of cervical | | | [...] She started PT at [facility] [place], but then self discharged because it aggravated [...] has no apparent deficits with short or 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 She has appropriate fund of [...] with the patient today during the visit. [facility] MRI shows no disc bulge or protrusion, [...] [place] | | | | | | [id number] | | | | | | | | +--------+---------+ + + + | 11/21/ | Office | Cardiology | Yesi, | | | 2019 | Visit | | JOSE ALBERTO Linder [address] | | | | | | [place], | | | | | | [place] [address] | | | | | | [phone] | | | | | | | [...] to the fluoroscopy suite for a | [facility] | | fluoroscopically-guided C7-T1 interlaminar epidural steroid [...] [address] | [place] | [phone] | | [facility] | | [address] | | | - IMAGING | | [...]
--- OUTSIDE RECORDS SUMMARY | ~2019-05-18 | XMS | Encounter Summary ---
Demographics + + + | Address | [address] | | | [place] [address] | + + + | Home Phone [...] Author | [facility] | | | and Ohana | + + + | Organization | [facility] | | | [...] | | | | | [place] [address] | | + + + + + | Hunter Jackson | ECON | [place] | | + + + + + | Wes Jackson | ECON | [place], [place] | | + + + + + | Oziel Jackson | ECON | [place], [place] | | + + + + + Care Team Providers + +------+ + | Care Chemical Laboratory Assistant Name | Role | Phone | + +------+ + | Rodolfo Cruz MD | PCP | | + +------+ + Encounter Details +--------+ + + + + | Date | Type | Department | Care Team | Description | +--------+ + + + + | 09/03/ | Hospital [facility] | Rodolfo Cruz, | Hypertension | | 2012 | Encounter | MED CTR LABORATORY | MD Raya RASHID | | | | | [address] [place] | [place] [address] | | | | | [place] | [address] | | | | | [address] | | | | | | [phone] | | | +--------+ + + + [...] | | | | | | [place] [address] | | | | | | [phone] | | | | | | | [...] - 1.030 | [facility] | | | [place] | | | [facility] | | [...] + | [facility] | [address] | [place] | [phone] | | [facility] | | [address] | | | - LABORATORY | | | | + + + + + | [facility] | [address] | [place] | | | [facility] | | [address] | | | - LABORATORY | | [...] + | [facility] | [address] | [place] | [phone] | | [facility] | | [address] | | | - LABORATORY | | | | + + + + + | [facility] | [address] | [place] | | | [facility] | | [address] | | | - LABORATORY | | [...] [address] | [place] | [phone] | | [facility] | | [address] | | | - LABORATORY | | | | + + + + + | [facility] | [address] | [place] | | | [facility] | | [address] | | | - LABORATORY | | [...] | 0.91 | 0.60 - 1.30 | [facility] | | | | | mg/dL | [...] + | [facility] | [address] | [place] | [phone] | | [facility] | | [address] | | | - LABORATORY | | | | + + + + + | [facility] | [address] | [place] | | | [facility] | | [address] | | | - LABORATORY | | [...] + | [facility] | [address] | [place], [place] | [phone] | | [facility] | | [address] | | | - LABORATORY | | | | + + + + + | [facility] | [address] | [place], [place] | | | [facility] | | [address] | | | - LABORATORY | | [...] - 1.030 | [facility] | | | [place] | | | [facility] | | [...] [address] | [place] | [phone] | | [facility] | | [address] | | | - LABORATORY | | | | + + + + + | [facility] | [address] | [place] | | | [facility] | | [address] | | | - LABORATORY | | | | + + + + + documented in this encounter Visit Diagnoses + + | Diagnosis | + + | Hypertension Unspecified essential hypertension | + + documented in this encounter"
--- OUTSIDE RECORDS SUMMARY | ~2019-05-18 | XMS | Encounter Summary ---
Demographics + + + | Address | [address] | | | [place] [address] | + + + | Home Phone [...] + | Author | [facility] | | | and [place]ana | + + + | Organization | [facility] | | [...] [place] | | | | | [place] [address] | | + + + + + | Hunter Jackson | ECON | [place] | | + + + + + | Wes Jackson | ECON | [place], [place] | | + + + + + | Oziel Jackson | ECON | [place], [place] | | + + + + + Care Team Providers + +------+ + | Care Treating Plant Operator Name | Role | Phone | + +------+ + | Kellie Gunderson | PCP | | + +------+ + Encounter Details +--------+ + + + + | Date | Type | Department | Care Team | Description | +--------+ + + + + | 11/18/ | Abstract | [facility] [place] | Yesi, | | | 2018 | | CARDIOLOGY [address] | JOSE ALBERTO Linder [address] | | | | | [place], | [place], | | | | | [place] [address] | [place] [address] | | | | | [phone] | [phone] | | | | | | | [...] W | | | | | | [place] | | | | | | [place] [address] | | | | | | [phone] | | | | | | | [...]
--- OUTSIDE RECORDS SUMMARY | ~2019-05-18 | XMS | Encounter Summary ---
Demographics + + + | Address | [address] | | | [place] [address] | + + + | Home Phone [...] Author | [facility] | | | and [place]ana | + + + | Organization | [facility] [...] [place] | | | | | [place] [address] | | + + + + + | Hunter Jackson | ECON | [place] | | + + + + + | Wes Jackson | ECON | [place], [place] | | + + + + + | Oziel Jackson | ECON | [place], [place] | | + + + + + Care Team Providers + +------+ + | Care Lineman Apprentice Name | Role | Phone | [...] + + | 07/02/ | Office | [facility] | Braulio León | Psychophysiologic | | 2018 | Visit | SLEEP DISORDER [address] | MD Allison [address] | insomnia (Primary | | | | [address] [place] | [address] [place] | Dx) | | | | [place] [address] | [place] [address] | | | | | [phone] | [phone] | | | | | | | [...] | | | | | | [place] [address] | | | | | | [phone] | | | | | | | | +--------+---------+ + + + documented as of this encounter Visit Diagnoses + + | Diagnosis | + + | 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
--- OUTSIDE RECORDS SUMMARY | ~2019-05-18 | XMS | Encounter Summary ---
Demographics + + + | Address | [address] | | | [place] [address] | + + + | Home Phone [...] Author | [facility] | | | and [place] | + + + | Organization | [facility] [...] [place] | | | | | [place] [address] | | + + + + + | Hunter Jackson | ECON | [place] | | + + + + + | Wes Jackson | ECON | [place], [place] | | + + + + + | Oziel Jackson | ECON | [place], [place] | | + + + + + Care Team Providers + +------+ + | Care Videotape Editor Name | Role | Phone | [...] | Essential | Yesi, | [address] | | | | | hypertension | JOSE ALBERTO Harry | [place], | | | | | with goal | [address] | [place] | | | | | blood | [place] | [address] | | | | | pressure | [facility] [place], | Phone: | | | | | less than | [place] | [phone] | | | | | 130/80 | [address] | Fax: | | | | | Murmur | Phone: | [phone] | | | | | Procedures | [phone] | | | | | | ECHO | Fax: | | | | | | Complete [place] | [phone] | | | | | | ECHO HEART | | | | | | | XTHORACIC,CO | | | | | | | [address] | | | | | | | [place] | | | | | | [...] | Essential | Yesi, | [address] | | | | | hypertension | JOSE ALBERTO Harry | [place], | | | | | with goal | [address] | [place] | | | | | blood | [place] | [address] | | | | | pressure | [place], | Phone: | | | | | less than | [place] | [phone] | | | | | 130/80 | [address] | Fax: | | | | | Murmur | Phone: | [phone] | | | | | Procedures | [phone] | | | | | | ECHO | Fax: | | | | | | Complete [place] | [phone] | | | | | | ECHO HEART | | | | | | | XTHORACIC,CO | | | | | | | MPLETE [address] | | | | | | | [place] | | | | | | [...] + + | 07/16/ | Hospital | [facility] | Yesi, | Essential | | 2017 | Encounter | MED CTR ECHO [address] | Niyah [employer] [address] | hypertension with | | | | [place] | [place], | goal blood pressure | | | | [place] [address] | [place] [address] | less than 130/80; | | | | [phone] | [phone] | Murmur | | | | | [...] | | | | 7 | | [facility]) | | | | | | [...] [place] | | | | | | [address] | | | | | | | | +--------+---------+ + + + | 11/21/ | Office | Cardiology | Yesi, | | | 2019 | Visit | | JOSE ALBERTO Harry [address] | | | | | | [place] | | | | | | [place] [address] | | | | | | [phone] | | | | | | | [...] Room Number DEION Patient Number | Syed [facility] | | [id number] Date of Study 07/16/2016 Visit Number | - IMAGING | | [id number] Referring | | | Physician YG HARRY Number Date of 1935 | | | Bull Gang Worker BAUDILIO LOWERY SALLY Age | | | 80 year(s) Interpreting [place] | | | Stripper Preliminary | | | CHRISTOPHER ARECHIGA MD Gender [...] | 50.56 ml | | | EF Pxbyvhfgn67% Left Ventricle Diastolic Dimension: 5.07 | | [...] Volume: 50.56 ml | | | EF Psbojajoz18% | | | | | | Left [...] Room Number DEION | | Patient Number [id number] Date of Study 07/16/2016 Visit Number | | [id number] Referring Physician YG HARRY Number | | Date of 1935 Bull Gang Worker BAUDILIO LOWERY SALLY Age | | 80 year(s) Interpreting [place] | | Stripper Preliminary CHRISTOPHER ARECHIGA MD Gender Female | | [...] [place] Volume: 50.56 ml | | EF Bvahilnet03% Left Ventricle Diastolic Dimension: 5.07 cm | [...] [place] Volume: 50.56 ml | | EF Osernygin77% | | | | Left Ventricle | [...] [address] | [place] | [phone] | | [facility] | | [address] | | | - IMAGING | | | | + + + + + documented in this encounter Visit Diagnoses + + | Diagnosis | + + | Essential hypertension with goal blood pressure less than 130/80 | + + | Murmur Undiagnosed cardiac murmurs | + + documented in this encounter"
--- OUTSIDE RECORDS SUMMARY | ~2019-05-18 | XMS | Encounter Summary ---
Demographics + + + | Address | [address] | | | [place] [address] | + + + | Home Phone [...] | Author | [facility] | | | and [place]ana | + + + | Organization | [facility] [...] | | | | | [place] [address] | | + + + + + | Hunter Jackson | ECON | [place] | | + + + + + | Wes Jackson | ECON | [place], [place] | | + + + + + | Oziel Jackson | ECON | [place], [place] | | + + + + + Care Team Providers + +------+ + | Care Gang Punch Operator Name | Role | Phone | [...] Dx); | | | | [address] [place] | [place] [address] | Rotator cuff | | | | [place] | [address] | syndrome of right | | | | [address] | | shoulder | | | | [phone] | | | +--------+---------+ + + + [...] [place] | | | | | | [address] | | | | | | | | +--------+---------+ + + + | 11/21/ | Office | Cardiology | Yesi, | | | 2019 | Visit | | JOSE ALBERTO Linder [address] | | | | | | [place], | | | | | | [place] [address] | | | | | | [phone] | | | | | | | [...] PDT | | | | | ONCE, [facility] 11/30/15 at 1200, For 1 | | | | | | | dose, Shake well. Not for IV | | | | | | | use., | | | | | | + +-------+ +-------+---+ + +---+---+ | | | +---+---+ documented in this encounter
--- OUTSIDE RECORDS SUMMARY | ~2019-05-18 | XMS | Encounter Summary ---
Demographics + + + | Address | [address] | | | [place] [address] | + + + | Home Phone [...] Author | [facility] | | | and Ohana | + + + | Organization | [facility] [...] | | | | | [place] [address] | | + + + + + | Hunter Jackson | ECON | [place] | | + + + + + | Wes Jackson | ECON | [place], [place] | | + + + + + | Oziel Jackson | ECON | [place], [place] | | + + + + + Care Team Providers + +------+ + | Care Asbestos Cloth Inspector Name | Role | Phone | [...] + | 05/24/ | Telephone | [facility] | No, Physician | Medication Refill | | 2016 | | MEDICINE [facility] Sravan | | | | | | [address] [place] | | | | | | [place] [address] | | | | | | [phone] | | | +--------+ + + + [...] [address]REET[place] | | | | | | [address] | | | | | | | | +--------+---------+ + + + | 11/21/ | Office | Cardiology | Yesi, | | | 2019 | Visit | | JOSE ALBERTO [address]inder [address] | | | | | | [place] | | | | | | [place] [address] | | | | | | [phone] | | | | | | | | +--------+---------+ + + + documented as of this encounter Visit Diagnoses Not on filedocumented in this encounter"
--- OUTSIDE RECORDS SUMMARY | ~2019-05-18 | XMS | Encounter Summary ---
Demographics + + + | Address | [address] | | | [place] [address] | + + + | Home Phone [...] + | Author | [facility] | | | and Ohana | + + + | Organization | [facility] | | [...] [place] | | | | | [place] [address] | | + + + + + | Hunter Jackson | ECON | [place] | | + + + + + | Wes Jackson | ECON | [place], [place] | | + + + + + | Oziel Jackson | ECON | [place], [place] | | + + + + + Care Team Providers + +------+ + | Care Regulatory Submissions Associate Name | Role | Phone | [...] | Visit | ORTHOPEDIC SURGERY | [address] [facility] | carpometacarpal | | | | [address] [facility] | [place], [place] | (CMC) joint of right | | | | [place], [place] | [address] | thumb (Primary Dx); | | | | [address] | | Rotator cuff tear | | | | [phone] | | arthropathy of right | | [...] [address]REET[place] | | | | | | [address] | | | | | | | | +--------+---------+ + + + | 11/21/ | Office | Cardiology | Yesi, | | | 2019 | Visit | | JOSE ALBERTO Linder [address] | | | | | | [place], | | | | | | [place] [address] | | | | | | [phone] | | | | | | | [...]
--- OUTSIDE RECORDS SUMMARY | ~2019-05-18 | XMS | Encounter Summary ---
Demographics + + + | Address | [address] | | | [place] [address] | + + + | Home Phone [...] Author | [facility] | | | and Ohana | + + + | Organization | [facility] | [...] | | | | | [place] [address] | | + + + + + | Hunter Jackson | ECON | [place] | | + + + + + | Wes Jackson | ECON | [place], [place] | | + + + + + | Oziel Jackson | ECON | [place], [place] | | + + + + + Care Team Providers + +------+ + | Care Dye Box Operator Name | Role | Phone | + +------+ + | Rodolfo Cruz MD | PCP | | + +------+ + Reason for Visit + + + | Reason | Comments | + + + | Records Request | ER visit 10-31-[address] [facility] | + + + Encounter Details +--------+ + + + + | Date | Type | Department | Care Team | Description | +--------+ + + + + | 10/31/ | Telephone | [facility] | Rodolfo Cruz, | Records Request (ER | | 2016 | | MEDICINE [address] | MD [address] | visit 10-31-2015 at | | | | [facility] | [place], [place] | [facility] | | | | [place] [address] | [address] | ) | | | | [phone] | | | +--------+ + + + [...] | | | | | | [place] [address] | | | | | | [phone] | | | | | | | | +--------+---------+ + + + documented as of this encounter Visit Diagnoses Not on filedocumented in this encounter"
--- OUTSIDE RECORDS SUMMARY | ~2019-05-18 | XMS | Encounter Summary ---
Demographics + + + | Address | [address] | | | [place] [address] | + + + | Home Phone | | + + + | Preferred Language | Unknown | + + + | Marital Status | | + + + | Judaism Affiliation | Unknown | + + + | Race | Unknown | + + + | Ethnic Group | Unknown | + + + Author + + + | Author | and [facility] | | | and Ohana | + + + | Organization | [facility] | [...] [place] | | | | | [place] [address] | | + + + + + | Hunter Jackson | ECON | [place] | | + + + + + | Wes Jackson | ECON | [place], [place] | | + + + + + | Oziel Jackson | ECON | [place], [place] | | + + + + + Care Team Providers + +------+ + | Care Demand Planning Analyst Name | Role | Phone | [...] + + | 09/18/ | Telephone | [facility] | Irina Simms, | Appointment | | 2017 | | CARDIOLOGY [address] | [address] | | | | | [place], | [place], | | | | | [place] [address] | [place] [address] | | | | | [phone] | [phone] | | | | | | | [...] | | | | | | [place] [address] | | | | | | [phone] | | | | | | | | +--------+---------+ + + + documented as of this encounter Visit Diagnoses Not on filedocumented in this encounter"
--- OUTSIDE RECORDS SUMMARY | ~2019-05-18 | XMS | Encounter Summary ---
Demographics + + + | Address | [address] | | | [place] [address] | + + + | Home Phone [...] Author | [facility] | | | and Ohana | + + + | Organization | [facility] | | [...] | | | | | [place] [address] | | + + + + + | Hunter Jackson | ECON | [place] | | + + + + + | Wes Jackson | ECON | [place], [place] | | + + + + + | Oziel Jackson | ECON | [place], [place] | | + + + + + Care Team Providers + +------+ + | Care Animal Assistant Name | Role | Phone | [...] | [address] | [address] | | | | | | [address] [place] | [place], | | | | | | [place] | [place] | | | | | | [address] | [address] | | | | | | Phone: | Phone: | | | | | | [phone] | [phone] | | | | | | Fax: | Fax: | | | | | | [phone] | [phone] | +--------+ + + + + + Encounter Details +--------+ + + + + | Date | Type | Department | Care Team | Description | +--------+ + + + + | 09/24/ | Orders Only | [facility] | Rodolfo Cruz, | Vertigo (Primary Dx) | | 2012 | | SURGERY [address] | [address] | | | | | [place], [place] | [place], [place] | | | | | [address] | [address] | | | | | [phone] | | | +--------+ + + + [...] | | | | | [place], [place] | | | | | | [address] | | | | | | | | +--------+---------+ + + + | 11/21/ | Office | Cardiology | Yesi, | | | 2019 | Visit | | JOSE ALBERTO Linder [address] | | | | | | [place], | | | | | | [place] [address] | | | | | | [phone] | | | | | | | [...]
--- OUTSIDE RECORDS SUMMARY | ~2019-05-18 | XMS | Encounter Summary ---
Demographics + + + | Address | [address] | | | [place] [address] | + + + | Home Phone [...] + | Author | [facility] | | | and Ohana | + + + | Organization | [facility] | | [...] [place] | | | | | [place] [address] | | + + + + + | Hunter Jackson | ECON | [place] | | + + + + + | Wes Jackson | ECON | [place], [place] | | + + + + + | Oziel Jackson | ECON | [place], [place] | | + + + + + Care Team Providers + +------+ + | Care J2Ee Android Developer Name | Role | Phone | [...] | Cervical | [place], | [address] | | | | | radiculopath | Harsha Moreno MD | [place], | | | | | y | [address] | [place] | | | | | Procedures | [facility] | [address] | | | | | [place] | [place] | Phone: | | | | | DX/THER SBST | [address] | [phone] | | | | | INTRLMNR | Phone: | Fax: | | | | | CRV/THRC | [phone] | [phone] | | | | | W/IMG GDN | Fax: | | | | | | [place] | [phone] | | | | | | TRIAMCINOLON [...] + + | 08/29/ | Hospital | [facility] | Cassidycz, | Cervical | | 2017 | Encounter | MED CTR XRAY [address] | ANN Verdin [address] | radiculopathy | | | | [place] | [facility], | (Primary Dx); [place] | | | | [place] [address] | [place] [address] | (degenerative disc | | | | [phone] | [phone] | disease), cervical; | | | | | | Foraminal stenosis | | | | | [facility], [facility] | of cervical region; | | [...] STREETER | | | | | | [address] | | | | | | | | +--------+---------+ + + + | 11/21/ | Office | Cardiology | Yesi, | | | 2019 | Visit | | JOSE ALBERTO Linder [address] | | | | | | [place] | | | | | | [place] [address] | | | | | | [phone] | | | | | | | [...] presents to the fluoroscopy suite for a [facility] | | fluoroscopically-guided C7-T1 interlaminar epidural [...] + + | Performing | Address | City[facility]State[facility] | Phone Number | | Organization | | | | + + + + + | [address] | [address] | [place] | [phone] | | [facility] | | [address] | | | - IMAGING | | [...] | | | Other, ONCE, [facility] 08/29/16 at 1330, | | PM [...]
--- OUTSIDE RECORDS SUMMARY | ~2019-05-18 | XMS | Encounter Summary ---
Demographics + + + | Address | [address] | | | [place] [address] | + + + | Home Phone [...] | Author | [facility] | | | and Ohana | + + + | Organization | [facility] [...] | | | | | [place] [address] | | + + + + + | Hunter Jackson | ECON | [place] | | + + + + + | Wes Jackson | ECON | [place], [place] | | + + + + + | Oziel Jackson | ECON | [place], [place] | | + + + + + Care Team Providers + +------+ + | Care Billing Customer Service Representative Name | Role | Phone [...] | 10/28/ | Refill | [facility] | Rodolfo Cruz, | Medication Refill | | 2013 | | MEDICINE [address] | [address] | | | | | [place] | [place] | | | | | [place] [address] | [address] | | | | | [phone] | | | +--------+--------+ + + + [...] | | | | | | [place] [address] | | | | | | [phone] | | | | | | | | +--------+---------+ + + + documented as of this encounter Visit Diagnoses + + | Diagnosis | + + | Thoracic sprain and strain, subsequent encounter - Primary | + + documented in this encounter"
--- OUTSIDE RECORDS SUMMARY | ~2019-05-18 | XMS | Encounter Summary ---
Demographics + + + | Address | [address] | | | [place] [address] | + + + | Home Phone [...] | Author | [facility] | | | and Ohana | + + + | Organization | [facility] | | [...] | | | | | [place] [address] | | + + + + + | Hunter Jackson | ECON | [place] | | + + + + + | Wes Jackson | ECON | [place], [place] | | + + + + + | Oziel Jackson | ECON | [place], [place] | | + + + + + Care Team Providers + +------+ + | Care Printing Shop Supervisor Name | Role | Phone [...] | [address] | | | | | [address] | | | | | | [phone] | | | +--------+--------+ + + + [...] STREETER | | | | | | [address] | | | | | | | | +--------+---------+ + + + | 11/21/ | Office | Cardiology | Yesi, | | | 2019 | Visit | | JOSE ALBERTO [address] | | | | | | [place] | | | | | | [place] [address] | | | | | | [phone] | | | | | | | | +--------+---------+ + + + documented as of this encounter Visit Diagnoses Not on filedocumented in this encounter"
--- OUTSIDE RECORDS SUMMARY | ~2019-05-18 | XMS | Encounter Summary ---
Demographics + + + | Address | [address] | | | [place] [address] | + + + | Home Phone [...] | [facility] | | | and Ohana | + + + | Organization | [facility] | [...] | | | | | [place] [address] | | + + + + + | Hunter Jackson | ECON | [place] | | + + + + + | Wes Jackson | ECON | [place], [place] | | + + + + + | Oziel Jackson | ECON | [place], [place] | | + + + + + Care Team Providers + +------+ + | Care Contract Management Specialist Name | Role | Phone | [...] | 01/10/ | Refill | [facility] [place] | Yesi, | Medication Refill | | 2015 | | CARDIOLOGY [address] | JOSE ALBERTO Linder [address] | | | | | [place], | [place], | | | | | [place] [address] | [place] [address] | | | | | [phone] | [phone] | | | | | | | [...] STREETER | | | | | | [address] | | | | | | | | +--------+---------+ + + + | 11/21/ | Office | Cardiology | Yesi, | | | 2019 | Visit | | JOSE ALBERTO [address] | | | | | | [place] | | | | | | [place] [address] | | | | | | [phone] | | | | | | | | +--------+---------+ + + + documented as of this encounter Visit Diagnoses Not on filedocumented in this encounter"
--- OUTSIDE RECORDS SUMMARY | ~2019-05-18 | XMS | Encounter Summary ---
Demographics + + + | Address | [address] | | | [place] [address] | + + + | Home Phone [...] | Author | [facility] | | | and [place]ana | + + + | Organization | [facility] | | [...] | | | | | [place] [address] | | + + + + + | Hunter Jackson | ECON | [place] | | + + + + + | Wes Jackson | ECON | [place], [place] | | + + + + + | Oziel Jackson | ECON | [place], [place] | | + + + + + Care Team Providers + +------+ + | Care Nuclear Instructor Name | Role | Phone | [...] | 01/23/ | Refill | [facility] | Rodolfo Cruz, | Medication Refill | | 2015 | | MEDICINE [address] | [address] | | | | | [place] | [place] | | | | | [place] [address] | [address] | | | | | [phone] | | | +--------+--------+ + + + [...] | | | | | | [place] [address] | | | | | | [phone] | | | | | | | | +--------+---------+ + + + documented as of this encounter Visit Diagnoses Not on filedocumented in this encounter"
--- OUTSIDE RECORDS SUMMARY | ~2019-05-18 | XMS | Encounter Summary ---
Demographics + + + | Address | [address] | | | [place] [address] | + + + | Home Phone [...] | Author | [facility] | | | and [place]ana | + + + | Organization | [facility] [...] | | | | | [place] [address] | | + + + + + | Gisele Jackson | ECON | [place], [place] | | + + + + + | Wes Jackson | ECON | [place], [place] | | + + + + + | Oziel Jackson | ECON | [place], [place] | | + + + + + Care Team Providers + +------+ + | Care Overseer Kosher Kitchen Name | Role | Phone | + [...] | | | | | midline | [facility] | | | | | thoracic | PA-C [address] | [address] | | | | | back pain | [address] | AVE | | | | | Spondylosis | [place] | [place], [place] | | | | | of cervical | [address] | [address] | | | | | region | Phone: | Phone: | | | | | without | [phone] | [phone] | | | | | myelopathy | Fax: | Fax: | | | | | or | [phone] | [phone] | | | | | radiculopath | [...] | | | | | midline | [facility] | | | | | thoracic | PA-C [address] | [address] | | | | | back pain | [address] | AVE | | | | | Spondylosis | [place] | [place] | | | | | of cervical | [address] | [address] | | | | | region | Phone: | Phone: | | | | | without | [phone] | [phone] | | | | | myelopathy | Fax: | Fax: | | | | | or | [phone] | [phone] | | | | | radiculopath | [...] | | Required | | midline | [facility] | | | | | thoracic | PA-C [address] | [address] | | | | | back pain | [address] | AVE | | | | | Spondylosis | [place] | [place] | | | | | of cervical | [address] | [address] | | | | | region | Phone: | Phone: | | | | | without | [phone] | [phone] | | | | | myelopathy | Fax: | Fax: | | | | | or | [phone] | [phone] | | | | | radiculopath | [...] | | back pain | [place], | [address] Phone: | | | | | | [place] [address] | [phone] | | | | | | Phone: | Fax: | | | | | | [phone] | [phone] | | | | | | Fax: | | | | | | | [phone] | | +--------+--------+ + + + + [...] thoracic back pain | | | | [place], | [address] [place], | (Primary Dx); | | | | [place] [address] | [place] [address] | Spondylosis of | | | | [phone] | [phone] | cervical region | | | | [...] 2) Try Lidocaine patch, can get from [employer] or [employer] 3) Massage therapy/physical therapy at [facility] 4) I will call you with image [...] o n the RaNITidine HCl (RANITIDINE ACID FENDER MECHANIC APPRENTICE PO) Take 1 tablet by mouth Daily. [...] has no apparent deficits with short or tax compliance agent memory. 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
--- OUTSIDE RECORDS SUMMARY | ~2019-05-18 | XMS | Encounter Summary ---
Demographics + + + | Address | [address] | | | [place] [address] | + + + | Home Phone [...] | Author | [facility] | | | and [place] | + + + | Organization | [facility] | [...] | | | | | [place] [address] | | + + + + + | Hunter Jackson | ECON | [place] | | + + + + + | Wes Jackson | ECON | [place], [place] | | + + + + + | Oziel Jackson | ECON | [place], [place] | | + + + + + Care Team Providers + +------+ + | Care Clinical Specialist Medical Device Name | Role | Phone | + +------+ + | Rodolfo Cruz MD | PCP | | + +------+ + Encounter Details +--------+ + + + + | Date | Type | Department | Care Team | Description | +--------+ + + + + | 10/25/ | Hospital | [facility] | Martkristinaalina Kristinamart, | | | 2014 | Encounter | MED CTR LABORATORY | [address] [facility] | | | | | [address] | [facility], | | | | | [place], [place] | [place] [address] | | | | | [address] | [phone] | | | | | [phone] | | | +--------+ + + + [...] STREETER | | | | | | [address] | | | | | | | | +--------+---------+ + + + | 11/21/ | Office | Cardiology | Yesi, | | | 2019 | Visit | | JOSE ALBERTO Linder [address] | | | | | | [place], | | | | | | [place] [address] | | | | | | [phone] | | | | | | | | +--------+---------+ + + + documented as of this encounter Visit Diagnoses Not on filedocumented in this encounter"
--- OUTSIDE RECORDS SUMMARY | ~2019-05-18 | XMS | Encounter Summary ---
Demographics + + + | Address | [address] | | | [place] [address] | + + + | Home Phone [...] | Author | [facility] | | | and [place]ana | + + + | Organization | [facility] [...] | | | | | [place] [address] | | + + + + + | Hunter Jackson | ECON | [place] | | + + + + + | Wes Jackson | ECON | [place], [place] | | + + + + + | Oziel Jackson | ECON | [place], [place] | | + + + + + Care Team Providers + +------+ + | Care Well Driller Name | Role | Phone [...] + + | 05/21/ | Telephone | [facility] | Yesi, | Appointment | | 2016 | | CARDIOLOGY [address] | JOSE ALBERTO Linder [address] | | | | | [place], | [place], | | | | | [place] [address] | [place] [address] | | | | | [phone] | [phone] | | | | | | | [...] STREETER | | | | | | [address] | | | | | | | | +--------+---------+ + + + | 11/21/ | Office | Cardiology | Yesi, | | | 2019 | Visit | | JOSE ALBERTO [address] | | | | | | [place] | | | | | | [place] [address] | | | | | | [phone] | | | | | | | | +--------+---------+ + + + documented as of this encounter Visit Diagnoses Not on filedocumented in this encounter"
--- OUTSIDE RECORDS SUMMARY | ~2019-05-18 | XMS | Encounter Summary ---
Demographics + + + | Address | [address] | | | [place] [address] | + + + | Home Phone | | + + + | Preferred Language | Unknown | + + + | Marital Status | Single | + + + | Anabaptist Affiliation | Unknown | + + + | Race | Unknown | + + + | Ethnic Group | Other Race | + + + Author + + + | Author | [facility] | + + + | Organization | [facility] | + + + | Address | Unknown | + + + | Phone | Unavailable | + + + Support + + +---------+ + | Name | Relationship | Address | Phone | + + +---------+ + | None None | ECON | Unknown | Unavailable | + + +---------+ + Care Team Providers + +------+ + | Care Therapist'S Assistant Name | Role | Phone | + +------+ + PCP | Unavailable | + +------+ + Encounter Details +--------+ + + + + | Date | Type | Department | Care Team | Description | +--------+ + + + + | 04/17/ | Ancillary | [facility] | | | | 2004 | Registratio | Practice [address] | | | | | n | [facility] | | | | | | [place] [address] | | | | | | [phone] | | | +--------+ + + + [...]
--- OUTSIDE RECORDS SUMMARY | ~2019-05-18 | XMS | Encounter Summary ---
Demographics + + + | Address | [address] | | | [place] [address] | + + + | Home Phone [...] | [facility] | | | and [place]ana | + + + | Organization | [facility] [...] | | | | | [place] [address] | | + + + + + | Hunter Jackson | ECON | [place] | | + + + + + | Wes Jackson | ECON | [place], [place] | | + + + + + | Oziel Jackson | ECON | [place], [place] | | + + + + + Care Team Providers + +------+ + | Care Gate Technician Name | Role | Phone | + +------+ + PCP | Unavailable | + +------+ + Encounter Details +--------+ + + + + | Date | Type | Department | Care Team | Description | +--------+ + + + + | 11/03/ | [facility] | [facility] | Rodolfo Cruz, | | | 2008 | Encounter | MED CTR XRAY [address] | [address] | | | | | [place] | [place], [place] | | | | | [place] [address] | [address] | | | | | [phone] | | | +--------+ + + + [...] | | | | | | [place] [address] | | | | | | [phone] | | | | | | | | +--------+---------+ + + + documented as of this encounter Visit Diagnoses Not on filedocumented in this encounter"
--- OUTSIDE RECORDS SUMMARY | ~2019-05-18 | XMS | Encounter Summary ---
Demographics + + + | Address | [address] | | | [place] [address] | + + + | Home Phone | | + + + | Preferred Language | Unknown | + + + | Marital Status | | + + + | Worship Affiliation | Unknown | + + + | Race | Unknown | + + + | Ethnic Group | Unknown | + + + Author + + + | Author | [facility] | | | and [place]ana | + + + | Organization | [facility] | [...] | | | | | [place] [address] | | + + + + + | Hunter Jackson | ECON | [place] | | + + + + + | Wes Jackson | ECON | [place], [place] | | + + + + + | Oziel Jackson | ECON | [place], [place] | | + + + + + Care Team Providers + +------+ + | Care Microbial Specialist Name | Role | Phone | [...] | 01/25/ | Refill | [facility] [place] [facility] | Rodolfo Cruz, | Medication Refill | | 2015 | | MEDICINE [address] | [address] | | | | | [place] | [place] [address] | | | | | [place] [address] | [address] | | | | | [phone] | | | +--------+--------+ + + + [...] | | | | | | [place] [address] | | | | | | [phone] | | | | | | | | +--------+---------+ + + + documented as of this encounter Visit Diagnoses Not on filedocumented in this encounter"
--- OUTSIDE RECORDS SUMMARY | ~2019-05-18 | XMS | Encounter Summary ---
Demographics + + + | Address | [address] | | | [place] [address] | + + + | Home Phone [...] | Located Within [facility] | | | and [place] | + + + | Organization | Loc[facility] | | | and [...] | | | | | [place] [address] | | + + + + + | Hunter Jackson | ECON | [place] | | + + + + + | Wes Jackson | ECON | [place], [place] | | + + + + + | Oziel Jackson | ECON | [place], [place] | | + + + + + Care Team Providers + +------+ + | Care Food Cart Attendant Name | Role | Phone | + +------+ + PCP | Unavailable | + +------+ + Reason for Visit + + + | Reason | Comments | + + + | Follow-up | Right shoulder and right CMC injection | + + + Encounter Details +--------+---------+ + + + | Date | Type | Department | Care Team | Description | +--------+---------+ + + + | 02/28/ | Office | [facility] | Ulysses Jensen, | Osteoarthritis of | | 2016 | Visit | ORTHOPEDIC SURGERY | [address] | first | | | | [address] [facility] | [place] [address] | carpometacarpal | | | | [place] | [address] | (CMC) joint of one | | | | [address] | | hand (Primary Dx); | | | | [phone] | | Rotator cuff | | | | | | syndrome, right | +--------+---------+ + + + Social History [...] encounter Progress Notes Ulysses Jensen MD - 02/29/2016 9:35 PM PDTPatient returns for right shoulder steroid inj ection and right first cmc joint injection Under sterile conditions today I injected her right shoulder subacromial space with kenalog 40mg and 3cc naropin I then injected her first cmc joint right with celestone 3mg and 1cc naropin She will return as needed documented [...] STREETER | | | | | | [address] | | | | | | | | +--------+---------+ + + + | 11/21/ | Office | Cardiology | Yesi, | | | 2019 | Visit | | JOSE ALBERTO Linder [address] | | | | | | [place], | | | | | | [place] [address] | | | | | | [phone] | | | | | | | | +--------+---------+ + + + documented as of this encounter Visit Diagnoses + + | Diagnosis | + + | Osteoarthritis of first carpometacarpal (CMC) joint of one hand - Primary | + + | Rotator cuff syndrome, right | + + documented in this encounter Administered Medications + +--------+ +------+------+ + | Medication Order | MAR | Action | Dose | Rate | Site | | | Action | Date | | | | + +--------+ +------+------+ + | betamethasone (CELESTONE | Given | 02/29/20 | 3 mg | | Other | | SOLUSPAN) injection 3 mg 3 mg, | | 16 9:17 | | | (Comment | | Intramuscular, ONCE, [facility] 02/29/16 | | AM PDT | | | ) | | at 0000, For 1 dose, Shake well. | | | | | | | Not for IV use., | | | | | | + +--------+ +------+------+ + +---+---+ | | | +---+---+ + +-------+ +-------+---+ + | triamcinolone acetonide | Given | 02/29/20 | 40 mg | | Shoulder | | (KENALOG-40) 40 mg/mL injection | | 16 9:17 | | | -Right | | 40 mg 40 mg, Intra-articular, | | AM PDT | | | | | ONCE, [facility] 02/29/16 at 0000, For 1 | | | | | | | dose, Shake well. Not for IV | | | | | | | use., | | | | | | + +-------+ +-------+---+ + +---+---+ | | | +---+---+ documented in this encounter"
--- OUTSIDE RECORDS SUMMARY | ~2019-05-18 | XMS | Encounter Summary ---
Demographics + + + | Address | [address] | | | [place] [address] | + + + | Home Phone [...] | Author | [facility] | | | and Ohana | + + + | Organization | [facility] | | [...] | | | | | [place] [address] | | + + + + + | Hunter Jackson | ECON | [place] | | + + + + + | Wes Jackson | ECON | [place], [place] | | + + + + + | Oziel Jackson | ECON | [place], [place] | | + + + + + Care Team Providers + +------+ + | Care Journeyman Pipe Fitter Name | Role | Phone | [...] + + | 04/14/ | Telephone | [facility] | Rodolfo Cruz, | Back Pain | | 2013 | | MEDICINE [address] [place] [address] | MD [address] | | | | | [place] | [place] | | | | | [place] [address] | [address] | | | | | [phone] | | | +--------+ + + + [...] 2019 | Visit | | MD Danny [address]NA[address] | | | | | | [place] | | | | | | [address] | | | | | | | | +--------+---------+ + + + | 11/21/ | Office | Cardiology | Yesi, | | | 2019 | Visit | | JOSE ALBERTO Linder [address] | | | | | | [place] | | | | | | [place] [address] | | | | | | [phone] | | | | | | | | +--------+---------+ + + + documented as of this encounter Visit Diagnoses Not on filedocumented in this encounter"
--- OUTSIDE RECORDS SUMMARY | ~2019-05-18 | XMS | Encounter Summary ---
Demographics + + + | Address | [address] | | | [place] [address] | + + + | Home Phone [...] Author | [facility] | | | and [place] | + + + | Organization | [facility] [...] | | | | | [place] [address] | | + + + + + | Hunter Jackson | ECON | [place] | | + + + + + | Wes Jackson | ECON | [place], [place] | | + + + + + | Oziel Jackson | ECON | [place], [place] | | + + + + + Care Team Providers + +------+ + | Care Transition Of Care Specialist Name | Role | Phone | + +------+ + | Rodolfo Cruz MD | PCP | | + +------+ + Encounter Details +--------+ + + + + | Date | Type | Department | Care Team | Description | +--------+ + + + + | 10/22/ | Hospital | [facility] | Rodolfo Cruz, | Thoracic sprain and | | 2013 | Encounter | [facility] [facility] | [address] | strain, subsequent | | | | [address] [place] | [place], [place] | encounter | | | | [place], [place] | [address] | | | | | [address] | | | | | | [phone] | | | +--------+ + + + [...] W | | | | | | [place], | | | | | | [place] [address] | | | | | | [phone] | | | | | | | | +--------+---------+ + + + documented as of this encounter Procedures + +--------+ + + + | Procedure Name | Priori | Date/Time | Associated Diagnosis | Comments | | | ty | | | | + +--------+ + + + | XR CHEST PA AND | Routin | 10/22/2013 | Thoracic sprain | Results for this | | LATERAL | e | 11:22 AM | and strain, | procedure are [...] + | MISCELLANEOUS LAB | | | [phone] | + +---------+ + + | MISCELANIOUS LAB | | | [phone] | + +---------+ + + documented in this encounter Visit Diagnoses + + | Diagnosis | + + | Thoracic sprain and strain, subsequent encounter | + + documented in this encounter"
--- OUTSIDE RECORDS SUMMARY | ~2019-05-18 | XMS | Encounter Summary ---
Demographics + + + | Address | [address] | | | [place] [address] | + + + | Home Phone [...] | Author | [facility] | | | and [place] | + + + | Organization | [facility] [...] | | | | | [place] [address] | | + + + + + | Hunter Jackson | ECON | [place] | | + + + + + | Wes Jackson | ECON | [place], [place] | | + + + + + | Oziel Jackson | ECON | [place], [place] | | + + + + + Care Team Providers + +------+ + | Care Painter Helper Sign Name | Role | Phone | + [...] + | 11/07/ | Telephone | [facility] | Irina Simms, | Blood Pressure Check | | 2015 | | CARDIOLOGY [address] | [address] | (Screening) | | | | [place], | [place], | | | | | [place] [address] | [place] [address] | | | | | [phone] | [phone] | | | | | | | [...] | | | | | | [place] [address] | | | | | | [phone] | | | | | | | | +--------+---------+ + + + documented as of this encounter Visit Diagnoses Not on filedocumented in this encounter"
--- OUTSIDE RECORDS SUMMARY | ~2019-05-18 | XMS | Encounter Summary ---
Demographics + + + | Address | [address] | | | [place] [address] | + + + | Home Phone [...] | Author | [facility] | | | and [place] | + + + | Organization | [facility] | | [...] | | | | | [place] [address] | | + + + + + | Hunter Jackson | ECON | [place] | | + + + + + | Wes Jackson | ECON | [place], [place] | | + + + + + | Oziel Jackson | ECON | [place], [place] | | + + + + + Care Team Providers + +------+ + | Care Assurance Sourcing Manager Name | Role | Phone | [...] | 03/22/ | Telephone | [facility] | Rodolfo Cruz, | Diagnostic Order; | | 2014 | | MEDICINE [address] | MD [address] | Lab Order | | | | [facility] | [place] | | | | | [place] [address] | [address] | | | | | [phone] | | | +--------+ + + + [...] STREETER | | | | | | [address] | | | | | | | | +--------+---------+ + + + | 11/21/ | Office | Cardiology | Yesi, | | | 2019 | Visit | | JOSE ALBERTO Linder [address] | | | | | | [place] | | | | | | [place] [address] | | | | | | [phone] | | | | | | | [...] | | MEDICAL | | | | mL/min/[id number] than | | CENTER - | | [...] | | Protein | | | [facility] | | [...] [address] | [place] | [phone] | | [facility] | | [address] | | | - LABORATORY | | [...] [place], | | | | | | [place] [address] | | | | + + + + + + + + | Specimen | + + | Blood specimen | | (specimen) | + + + + + + + | Performing | Address | City/State/Zipcode | Phone Number | | Organization | | | | + + + + + | [facility] | [address] | [place] [address] | [phone] | + + + + + documented in this encounter Visit Diagnoses + + | Diagnosis | + + | Pre-procedure lab exam - Primary Pre-procedural laboratory examination | + + documented in this encounter"
--- OUTSIDE RECORDS SUMMARY | ~2019-05-18 | XMS | Encounter Summary ---
Demographics + + + | Address | [address] | | | [place] [address] | + + + | Home Phone [...] | Author | [facility] | | | and [place] | + + + | Organization | [facility] | | [...] | | | | | [place] [address] | | + + + + + | Hunter Jackson | ECON | [place] | | + + + + + | Wes Jackson | ECON | [place], [place] | | + + + + + | Oziel Jackson | ECON | [place], [place] | | + + + + + Care Team Providers + +------+ + | Care Arc Cutter Plasma Arc Name | Role | Phone | + [...] | [address] | | | | | [address] | | | | | | [phone] | | | +--------+--------+ + + + [...] | | | | | | [place] [address] | | | | | | [phone] | | | | | | | | +--------+---------+ + + + documented as of this encounter Visit Diagnoses Not on filedocumented in this encounter"
--- OUTSIDE RECORDS SUMMARY | ~2019-05-18 | XMS | Encounter Summary ---
Demographics + + + | Address | [address] | | | [place] [address] | + + + | Home Phone [...] Author | [facility] | | | and [place] | + + + | Organization | [facility] | | | [...] | | | | | [place] [address] | | + + + + + | Hunter Jackson | ECON | [place] | | + + + + + | Wes Jackson | ECON | [place], [place] | | + + + + + | Oziel Jackson | ECON | [place], [place] | | + + + + + Care Team Providers + +------+ + | Care Residential Substance Abuse Counselor Name | Role | Phone | [...] starting the new | | | | [place], | [place], | medication) | | | | [place] [address] | [place] [address] | | | | | [phone] | [phone] | | | | | | | [...] STREETER | | | | | | [address] | | | | | | | | +--------+---------+ + + + | 11/21/ | Office | Cardiology | Yesi, | | | 2019 | Visit | | JOSE ALBERTO Linder [address] | | | | | | [place], | | | | | | [place] [address] | | | | | | [phone] | | | | | | | | +--------+---------+ + + + documented as of this encounter Visit Diagnoses Not on filedocumented in this encounter"
--- OUTSIDE RECORDS SUMMARY | ~2019-05-18 | XMS | Encounter Summary ---
Demographics + + + | Address | [address] | | | [place] [address] | + + + | Home Phone | | + + + | Preferred Language | Unknown | + + + | Marital Status | Single | + + + | Hinduism Affiliation | Unknown | + + + | Race | Unknown | + + + | Ethnic Group | Other Race | + + + Author + + + | Author | [facility] | + + + | Organization | [facility] | + + + | Address | Unknown | + + + | Phone | Unavailable | + + + Support + + +---------+ + | Name | Relationship | Address | Phone | + + +---------+ + | None None | ECON | Unknown | Unavailable | + + +---------+ + Care Team Providers + +------+ + | Care Thermodynamics Professor Name | Role | Phone | + +------+ + PCP | Unavailable | + +------+ + Encounter Details +--------+ + + + + | Date | Type | Department | Care Team | Description | +--------+ + + + + | 06/05/ | Ancillary | [facility] | | | | 2005 | Registratio | Practice [address] | | | | | n | [facility] | | | | | | [place] [address] | | | | | | [phone] | | | +--------+ + + + [...]
--- OUTSIDE RECORDS SUMMARY | ~2019-05-18 | XMS | Encounter Summary ---
[...] Author | [facility] | | | and [place] | + + + | Organization | [facility] | | [...] | | | | | [place] [address] | | + + + + + | Hunter Jackson | ECON | [place] | | + + + + + | Wes Jackson | ECON | [place], [place] | | + + + + + | Oziel Jackson | ECON | [place], [place] | | + + + + + Care Team Providers + +------+ + | Care Payroll Technician Name | Role | Phone | [...] + | 08/16/ | Telephone | [facility] | Rodolfo Cruz, | Lab Order | | 2015 | | MEDICINE [facility] [address] | MD [address] | | | | | [address] [place] | [place] | | | | | [place] [address] | [address] | | | | | [phone] | | | +--------+ + + + [...] | | | | | | [place] [address] | | | | | | [phone] | | | | | | | | +--------+---------+ + + + documented as of this encounter Visit Diagnoses Not on filedocumented in this encounter"
--- OUTSIDE RECORDS SUMMARY | ~2019-05-18 | XMS | Encounter Summary ---
Demographics + + + | Address | [address] | | | [place] [address] | + + + | Home Phone [...] + | Author | [facility] | | | and [place] | + + + | Organization | [facility] | | | and hOana | + + + | Address | Unknown | + + + | Phone | Unavailable | + + + Support + + + + + | Name | Relationship | Address | Phone | + + + + + | Osmin Jackson | ECON | [address] | | | | | [place] [address] | | + + + + + | Hunter Jackson | ECON | [place] | | + + + + + | Wes Jackson | ECON | [place], [place] | | + + + + + | Oziel Jackson | ECON | [place], [place] | | + + + + + Care Team Providers + +------+ + | Care Electrolysis Needle Operator Name | Role | Phone | [...] | CARDIOLOGY [address] | MD [address] [place] | | | | | [place], | [place], | | | | | [place] [address] | [place] [address] | | | | | [phone] | [phone] | | | | | | | [...] STREETER | | | | | | [address] | | | | | | | | +--------+---------+ + + + | 11/21/ | Office | Cardiology | Yesi, | | | 2019 | Visit | | JOSE ALBERTO Linder [address] | | | | | | [place] | | | | | | [place] [address] | | | | | | [phone] | | | | | | | | +--------+---------+ + + + documented as of this encounter Visit Diagnoses Not on filedocumented in this encounter"
--- OUTSIDE RECORDS SUMMARY | ~2019-05-18 | XMS | Encounter Summary ---
Demographics + + + | Address | [address] | | | [place] [address] | + + + | Home Phone [...] + | Author | [facility] | | | and [place] | + + + | Organization | [facility] [...] | | | | | [place] [address] | | + + + + + | Hunter Jackson | ECON | [place] | | + + + + + | Wes Jackson | ECON | [place], [place] | | + + + + + | Oziel Jackson | ECON | [place], [place] | | + + + + + Care Team Providers + +------+ + | Care Robotic Machine Operator Name | Role | Phone [...] + | 09/29/ | Telephone | [facility] | Rodolfo Cruz, | Referral | | 2012 | | [facility] | [address] | (PreAuthorization) | | | | [address] | [place] | | | | | [place] | [address] | | | | | [address] | | | | | | [phone] | | | +--------+ + + + [...] | | | | | | [place] [address] | | | | | | [phone] | | | | | | | | +--------+---------+ + + + documented as of this encounter Visit Diagnoses Not on filedocumented in this encounter"
--- OUTSIDE RECORDS SUMMARY | ~2019-05-18 | XMS | Encounter Summary ---
Demographics + + + | Address | [address] | | | [place] [address] | + + + | Home Phone [...] Author | [facility] | | | and [place] | + + + | Organization | [facility] [...] [place] | | | | | [place] [address] | | + + + + + | Hnuter Jackson | ECON | [place] | | + + + + + | Wes Jackson | ECON | [place], [place] | | + + + + + | Oziel Jackson | ECON | [place], [place] | | + + + + + Care Team Providers + +------+ + | Care Roof Truss Builder Name | Role | Phone | [...] + + | 07/17/ | Office | [facility] | Ulysses Jensen, | Arthritis of | | 2018 | Visit | ORTHOPEDIC SURGERY | [address] | carpometacarpal | | | | [address] [place] [address] | [place], [place] | (CMC) joint of right | | | | [place], [place] | [address] | thumb (Primary Dx); | | | | [address] | | Rotator cuff tear | | | | [phone] | | arthropathy of right | | [...] | | | | | | [place] [address] | | | | | | [phone] | | | | | | | [...]
--- OUTSIDE RECORDS SUMMARY | ~2019-05-18 | XMS | Encounter Summary ---
Demographics + + + | Address | [address] | | | [place] [address] | + + + | Home Phone [...] Author | [facility] | | | and [place] | + + + | Organization | [facility] | | | and [...] | | | | | [place] [address] | | + + + + + | Hunter Jackson | ECON | [place], [place] | | + + + + + | Wes Jackson | ECON | [place], [place] | | + + + + + | Oziel Jackson | ECON | [place], [place] | | + + + + + Care Team Providers + +------+ + | Care Cashier Greeter Name | Role | Phone | + [...] Nuclear | | | | | | Bernice, | Medicine | | | | | Hyperlipidem | Niyah, COMPLETION SUPERVISOR | [address] | | | | | ia, mixed | [address] | [place], | | | | | Chest pain, | [place] | [place] | | | | | unspecified | [place], | [address] | | | | | type | [place] | Phone: | | | | | Procedures | [address] | [phone] | | | | | [place] Nuclear | Phone: | Fax: | | | | | Stress Test | [phone] | [phone] | | | | | (Vasodilator | Fax: | | | | | | ) CHG | [phone] | | | | | | MYOCARDIAL | | | | | | | SPECT | | | | | | | MULTIPLE | | | | | | | STUDIES TX | | | | | | | CV STRS TST | | | | | | | XERS&/OR RX | | | | | | | CONT ECG W/O | | | | | | | I&R TX | | | | | | | [...] | Essential | Yesi, | [address] | | | | | hypertension | JOSE ALBERTO Harry | [place], | | | | | with goal | [address] | [place] | | | | | blood | [place] | [address] | | | | | pressure | [place], | Phone: | | | | | less than | [place] | [phone] | | | | | 130/80 | [address] | Fax: | | | | | Murmur | Phone: | [phone] | | | | | Procedures | [phone] | | | | | | ECHO | Fax: | | | | | | Complete [place] | [phone] | | | | | | ECHO HEART | | | | | | | XTHORACIC,CO | | | | | | | MPLETE W | | | | | | | DOPPLER [place] | | | | | | | [...] | | | Procedures | EULOGIO | [address] | | | | | FUP - | [address] | [place], | | | | | ESTABLISHED | [place], | [place] [address] | | | | | SUW PT | [place] [address] | Phone: | | | | | | Phone: | [phone] | | | | | | [phone] | Fax: | | | | | | Fax: | [phone] | | | | | | [phone] | | +--------+--------+ + + + + Encounter Details +--------+---------+ + + + | Date | Type | Department | Care Team | Description | +--------+---------+ + + + | 07/03/ | Office | [facility] | Yesi, | Essential | | 2017 | Visit | CARDIOLOGY [address] | JOSE ALBERTO Harry [address] | hypertension with | | | | [place], | [place], | goal blood pressure | | | | [place] [address] | [place] [address] | less than 130/80 | | | | [phone] | [phone] | (Primary Dx); | | | | [...] been very active. She was going to [employer] 3 times a week but stopped the last 2 months . She has had exertional chest disomfort.This also happens at rest and almost daily. It las t a couple of minutes at the time. She has had shortness of breath with exertion of walkin g or even trying to sign at advent. She has not had any lightheadedness or [...] o n the RaNITidine HCl (RANITIDINE ACID DATABASE TESTER PO) Take 1 tablet by mouth Daily. [...] RESULTS reviewed during visit today primarily from [facility]: LIPID Lab Results Component Value Date [...] PLTEX 381 05/08/2016 I reviewed records from [facility] for emergency department visit on 04/12 which [...] A. Seen in the emergency room at [facility] for chest pain. She was [...] failure.She is in a class II of [employer] functional class. There is no [...] this chart may have been created with [email or web address] voice recognition software. Occasi onal wrong-word or [...] | | | | | | [place] [address] | | | | | | [phone] | | | | | | | [...] study with a normal left ventricular | [facility] | | size and wall thickness. Preserved left ventricular systolic | [facility] | | function. LVEF by gated SPECT 75%. Signed by: Christopher | - IMAGING | | MD Mendez [facility] 07/16/2016, 13:12 | | + + + + + + | Narrative | Performed At | + + + | NUCLEAR MEDICINE STRESS TEST REPORT | [facility] | | Patient Name: Jaclyn Jackson Study Date: 07/16/2016 Primary Care | [facility] | | Provider: FLORA Morgan : 1935 [address] | [address] | [place] | [phone] | | [facility] | | [address] | | | - IMAGING | | [...] Room Number DEION Patient Number | M [facility] | | [id number] Date of Study 07/16/2016 Visit Number | - IMAGING | | [id number] Referring | | | Physician YG HARRY Number Date of 1935 | | | Horologist JACEYWALKERGold BEVERLEY SALLY Age | | | 80 year(s) Interpreting MENDEZ WHITE | | | Factory Engineer | | | CHRISTOPHER ARECHIGA MD Gender [...] | 50.56 ml | | | EF Yrjjwwujc47% Left Ventricle Diastolic Dimension: 5.07 | | [...] Volume: 50.56 ml | | | EF Olvdudjda56% | | | | | | Left [...] Room Number DEION | | Patient Number [id number] Date of Study 07/16/2016 Visit Number | | [id number] Referring Physician YG HARRY Number | | Date of 1935 Horologist BAUDILIO BEVERLEY [facility] Age | | 80 year(s) Interpreting MENDEZ WHITE | | Factory Engineer CHRISTOPHER ARECHIGA MD Gender Female | | [...] [place] Volume: 50.56 ml | | EF Xuipngskc65% Left Ventricle Diastolic Dimension: 5.07 cm | [...] [place] Volume: 50.56 ml | | EF Mnsjgtiln56% | | | | Left Ventricle | [...] + | [address] | [address] | [place] | [phone] | | [facility] | | [address] | | | - IMAGING | | [...] MD | | | | | | ([id number]) on 07/04/2016 | | | | | [...]
--- OUTSIDE RECORDS SUMMARY | ~2019-05-18 | XMS | Clinical Summary ---
Demographics + + + | Address | [address] | | | [place] [address] | + + + | Home Phone [...] [facility] | | | and [place] | + + + | Organization | [facility] | [...] SWA[place] | | | | | [place] [address] | | + + + + + | Hunter Jackson | ECON | [place] | | + + + + + | Wes Jackson | ECON | [place], [place] | | + + + + + | Oziel Jackson | ECON | [place], [place] | | + + + + + Care Team Providers + +------+ + | Care Rock Crushing Machine Operator Name | Role | Phone [...] + + | Coronary artery disease involving creek coronary artery of | 11/02/2016 | | creek heart with unstable angina pectoris | | [...] | AI, no , trace TR, trace [place], normal aorta other than mild | | [...] STREETER | | | | | | [address] | | | | | | | | +--------+---------+ + + + | 11/21/ | Office | Cardiology | Yesi, | | | 2019 | Visit | | JOSE ALBERTO Linder [address] | | | | | | [place] | | | | | | [place] [address] | | | | | | [phone] | | | | | | | [...] + +--------+ | MEDICARE | MEDICA | [id number] | | [phone] | | Medica | | | RE | | 003-Pr | 5 | | re | | | PART A | | esent | | | | | | AND B | | | | | | + +--------+ +--------+ + +--------+ | MODA | MODA | [id number] | 07/11/19 | [phone] | [address] | Indemn | | | HEALTH | | 08-Pre | 9 | [address] | ity | | | MDCR | | sent | | [employer]CE[employer], | | | | SUPPL | | | | [place] [address] | | + +--------+ +--------+ + +--------+ [...] saba | | | 9 (Home) | [address] | + +--------+ +--------+ + + Advance Directives + + + + + | Type | Date Recorded | Patient | Explanation | | | | Plating Engineer | | + + + + + | Power of | | | | | Perinatal Director | | | | + + + [...]
--- OUTSIDE RECORDS SUMMARY | ~2019-05-18 | XMS | Encounter Summary ---
Demographics + + + | Address | [address] | | | [place] [address] | + + + | Home Phone [...] + | Author | [facility] | | | and [place]ana | + + + | Organization | [facility] | | [...] | | | | | [place] [address] | | + + + + + | Hunter Jackson | ECON | [place] | | + + + + + | Wes Jackson | ECON | [place], [place] | | + + + + + | Oziel Jackson | ECON | [place], [place] | | + + + + + Care Team Providers + +------+ + | Care Creative Services Designer Name | Role | Phone | [...] + + | 11/08/ | Telephone | [facility] | Rodolfo Cruz, | Imaging Only (CT | | 2013 | | MEDICINE [address] | [address] | chest ab/pelvis with | | | | Street [place] | [place], [place] | contrast) | | | | [place] [address] | [address] | | | | | [phone] | | | +--------+ + + + [...] STREETER | | | | | | [address] | | | | | | | | +--------+---------+ + + + | 11/21/ | Office | Cardiology | Yesi | | | 2019 | Visit | | JOSE ALBERTO Linder [address] | | | | | | [place] | | | | | | [place] [address] | | | | | | [phone] | | | | | | | | +--------+---------+ + + + documented as of this encounter Visit Diagnoses Not on filedocumented in this encounter"
--- OUTSIDE RECORDS SUMMARY | ~2019-05-18 | XMS | Encounter Summary ---
Demographics + + + | Address | [address] | | | [place] [address] | + + + | Home Phone [...] + + | Author | [facility] | | | and [place] | + + + | Organization | [facility] [...] | | | | | [place] [address] | | + + + + + | Hunter Jackson | ECON | [place] | | + + + + + | Wes Jackson | ECON | [place], [place] | | + + + + + | Oziel Jackson | ECON | [place], [place] | | + + + + + Care Team Providers + +------+ + | Care Actuarial Manager Name | Role | Phone | [...] + + | 08/30/ | Office | [facility] | Ulysses Jensen, | Rotator cuff | | 2016 | Visit | ORTHOPEDIC SURGERY | MD [address] | syndrome of right | | | | [address] | [place] [address] | shoulder (Primary | | | | [place], [place] | [address] | Dx); Primary | | | | [address] | | osteoarthritis of | | | | [phone] | | first | | | | [...] [place] | | | | | | [address] | | | | | | | | +--------+---------+ + + + | 11/21/ | Office | Cardiology | Yesi, | | | 2019 | Visit | | JOSE ALBERTO Linder [address] | | | | | | [place], | | | | | | [place] [address] | | | | | | [phone] | | | | | | | [...]
--- OUTSIDE RECORDS SUMMARY | ~2019-05-18 | XMS | Encounter Summary ---
Demographics + + + | Address | [address] | | | [place] [address] | + + + | Home Phone [...] Author | [facility] | | | and [place] | + + + | Organization | [facility] | [...] SWA[place] | | | | | [place] [address] | | + + + + + | Hunter Jackson | ECON | [place] | | + + + + + | Wes Jackson | ECON | [place], [place] | | + + + + + | Oziel Jackson | ECON | [place], [place] | | + + + + + Care Team Providers + +------+ + | Care Chemical Waste Management Technician Name | Role | Phone | [...] + + | 07/17/ | Office | [facility] | Ulysses Jensen, | Arthritis of | | 2018 | Visit | ORTHOPEDIC SURGERY | [address] | carpometacarpal | | | | [address] [place] [address] | [place], [place] | (CMC) joint of right | | | | [place], [place] | [address] | thumb (Primary Dx); | | | | [address] | | Rotator cuff tear | | | | [phone] | | arthropathy of right | | [...] | | | | | | [place] [address] | | | | | | [phone] | | | | | | | [...]
--- OUTSIDE RECORDS SUMMARY | ~2019-05-18 | XMS | Encounter Summary ---
Demographics + + + | Address | [address] | | | [place] [address] | + + + | Home Phone [...] Author | [facility] | | | and [place] | + + + | Organization | [facility] [...] [place] | | | | | [place] [address] | | + + + + + | Hunter Jackson | ECON | [place] | | + + + + + | Wes Jackson | ECON | [place], [place] | | + + + + + | Oziel Jackson | ECON | [place], [place] | | + + + + + Care Team Providers + +------+ + | Care Philosophy Specialist Name | Role | Phone | [...] | 11/22/ | Office | [facility] | Irina Simms, | Coronary artery | | 2017 | Visit | CARDIOLOGY [address] | [address] [place] | disease involving | | | | [place], | [place], | [place] coronary | | | | [place] [address] | [place] [address] | artery of [place] | | | | [phone] | [phone] | heart with unstable | | | [...] Since that time, patient was admitted to [facility] on 11/01/2016 for CABG x3 by Dr. [...] radiculopathy Coronary artery disease involving [place] coronary artery of [place] heart with unstable angina pectoris Stress hyperglycemia [...] and lab reports on 11/01/2016-11/06/2016. Refer to civil technician. Above data and testing is reviewed this visit; testing below is historical data unless othe rwise specified. ASSESSMENT: 1. Coronary artery disease A. Seen at [facility] they had EKG and sent her home stating it was GERD B. Seen in the emergency room at [facility] for chest pain. She was schedule for stre ss test and discharged home. C. Stress Test 05/16/16, is maximal asymptomatic stress test, [facility] very poor function status, achieving maximal heart [...] trace [place], normal aorta other than mild c alcification [...] failure.She is in a class I of [place] [employer] functional class. There is bilateral [...] 11:38 Electronically signed by: Irina Simms MD [facility] 11/22/2016 Portions of this chart may have [...] | | | | | | [place] [address] | | | | | | [phone] | | | | | | | | +--------+---------+ + + + documented as of this encounter Visit Diagnoses + + | Diagnosis | + + | Coronary artery disease involving [place] coronary artery of [place] heart with unstable | | angina pectoris (HCC) | + + documented in this encounter
--- OUTSIDE RECORDS SUMMARY | ~2019-05-18 | XMS | Encounter Summary ---
Demographics + + + | Address | [address] | | | [place] [address] | + + + | Home Phone [...] + | Author | [facility] | | | and [place] | + + + | Organization | [facility] | [...] | | | | | [place] [address] | | + + + + + | Hunter Jackson | ECON | [place] | | + + + + + | Wes Jackson | ECON | [place], [place] | | + + + + + | Oziel Jackson | ECON | [place], [place] | | + + + + + Care Team Providers + +------+ + | Care Door Operator Name | Role | Phone | + +------+ + | Rodolfo Cruz MD | PCP | | + +------+ + Encounter Details +--------+ + + + + | Date | Type | Department | Care Team | Description | +--------+ + + + + | 05/22/ | Abstract | [facility] | Yesi, | | | 2015 | | [address] | JOSE ALBERTO Linder [address] | | | | | [place], | [place], | | | | | [place] [address] | [place] [address] | | | | | [phone] | [phone] | | | | | | | [...] STREETER | | | | | | [address] | | | | | | | | +--------+---------+ + + + | 11/21/ | Office | Cardiology | Yesi, | | | 2019 | Visit | | JOSE ALBERTO Linder [address] | | | | | | [place] | | | | | | [place] [address] | | | | | | [phone] | | | | | | | [...] Agency Comment | + + | [facility] | + + + +---------+ + [...] Agency Comment | + + | [facility] | + + + +---------+ + [...] Agency Comment | + + | [facility] | + + + +---------+ + [...]
--- OUTSIDE RECORDS SUMMARY | ~2019-05-18 | XMS | Encounter Summary ---
Demographics + + + | Address | [address] | | | [place] [address] | + + + | Home Phone [...] | Author | [facility] | | | and [place] | + + + | Organization | [facility] | | [...] | | | | | [place] [address] | | + + + + + | Hunter Jackson | ECON | [place] | | + + + + + | Wes Jackson | ECON | [place], [place] | | + + + + + | Oziel Jackson | ECON | [place], [place] | | + + + + + Care Team Providers + +------+ + | Care Occupational Therapy Co Director Name | Role | Phone | [...] + | 09/25/ | Office | [facility] | Rodolfo Cruz, | 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 I offered her a counselor. flonase trial. I wolauro prince recommend that she relocate to the [facility]. Otherwise continue current medical regimen. documented in [...] | | | | | | [place] [address] | | | | | | [phone] | | | | | | | [...]
--- OUTSIDE RECORDS SUMMARY | ~2019-05-18 | XMS | Encounter Summary ---
Demographics + + + | Address | [address] | | | [place] [address] | + + + | Home Phone [...] | [facility] | | | and [place] | + + + | Organization | [facility] | [...] | | | | | [place] [address] | | + + + + + | Hunter Jackson | ECON | [place] | | + + + + + | Wes Jackson | ECON | [place], [place] | | + + + + + | Oziel Jackson | ECON | [place], [place] | | + + + + + Care Team Providers + +------+ + | Care Firer Marine Name | Role | Phone | + +------+ + PCP | Unavailable | + +------+ + Encounter Details +--------+ + + + + | Date | Type | Department | Care Team | Description | +--------+ + + + + | 08/23/ | Hospital | [facility] | | | | 2010 | Encounter | MED CTR XRAY [address] | | | | | | [place] | | | | | | [place] [address] | | | | | | [phone] | | | +--------+ + + + [...] STREETER | | | | | | [address] | | | | | | | | +--------+---------+ + + + | 11/21/ | Office | Cardiology | Yesi | | | 2019 | Visit | | JOSE ALBERTO Linder [address] | | | | | | [place], | | | | | | [place] [address] | | | | | | [phone] | | | | | | | [...] Performed At | + + + | [facility] Diagnostic Imaging Department | [facility] | | [address] [facility] | [facility] | | MR CERVICAL SPINE WITH AND [...] Transcribed Date/Time: 08/23/2010 | | | 17:51 Formation Fracturing Operator: <Electronically Signed by Lauri Moreno | | | MD Karina> 08/23/10 2106 | | + + + + ---------+ | Procedure Note | + ---------+ | Remington, Rad Conversion - 06/18/2013 2:42 PM [facility] | | Diagnostic Imaging Department [address] [place] [address] | | MR CERVICAL SPINE WITH AND [...] 17:16 Transcribed Date/Time: | | 08/23/2010 17:51 Formation Fracturing Operator: <Electronically Signed by Lauri Collins MD> | [...] 17:16 | |Transcribed Date/Time: 08/23/2010 17:51 | |Formation Fracturing Operator: | |<Electronically Signed by Lauri Collins MD> [...]
--- OUTSIDE RECORDS SUMMARY | ~2019-05-18 | XMS | Encounter Summary ---
Demographics + + + | Address | [address] | | | [place] [address] | + + + | Home Phone [...] + | Author | [facility] | | | and [place] | + + + | Organization | [facility] | | [...] | | | | | [place] [address] | | + + + + + | Hunter Jackson | ECON | [place] | | + + + + + | Wes Jackson | ECON | [place], [place] | | + + + + + | Oziel Jackson | ECON | [place], [place] | | + + + + + Care Team Providers + +------+ + | Care Precision Lathe Operator Name | Role | Phone | [...] back pain (Primary | | | | [place], | [place], | Dx) | | | | [place] [address] | [place] [address] | | | | | [phone] | [phone] | | | | | | | [...] has no apparent deficits with short or continuous churn buttermaker memory. She has appropriate fund of knowledge [...] | | | | | | [place] [address] | | | | | | [phone] | | | | | | | [...]
--- OUTSIDE RECORDS SUMMARY | ~2019-05-18 | XMS | Encounter Summary ---
Demographics + + + | Address | [address] | | | [place] [address] | + + + | Home Phone [...] + | Author | [facility] | | | and [place] | + + + | Organization | [facility] | [...] | | | | | [place] [address] | | + + + + + | Hunter Jackson | ECON | [place] | | + + + + + | Wes Jackson | ECON | [place], [place] | | + + + + + | Oziel Jackson | ECON | [place], [place] | | + + + + + Care Team Providers + +------+ + | Care Duck Bill Operator Name | Role | Phone | [...] [place], | | | | | | [address] | [place] [address] | | | | | | Phone: | Phone: | | | | | | [phone] | [phone] | | | | | | Fax: | Fax: | | | | | | [phone] | [phone] | +--------+ + + + + + Encounter Details +--------+---------+ + + + | Date | Type | Department | Care Team | Description | +--------+---------+ + + + | 09/08/ | Office | [facility] | Zion Valencia MD | Epistaxis (Primary | | 2014 | Visit | OTOLARYNGOLOGY [address] | [address] | Dx) | | | | [address] | [address] [place], | | | | | [place] | [place] [address] | | | | | [address] | [phone] | | | | | [phone] | | | +--------+---------+ + + + [...] - 09/08/2014 4:07 PM PDT [facility] OT[facility] [address] [facility] [address] OFFICE NOTE ZION VALENCIA MD Patient: JACLYN JACKSON Admitting: MR #: [id number] LOC: PT TYPE: Adm Date: 09/08/2014 : [...] 16:07:00 Transcribed on 09/08/2014 21:04:56 by job# [id number] Confirmation #: [id number] cc: SUGAR CRUZ MD chiquitaZion cain MD - 09/08/2014 4:04 PM PDTSee dictation # [id number] signed by Zion Valencia MD at 09/08/2014 [...] STREETER | | | | | | [address] | | | | | | | | +--------+---------+ + + + | 11/21/ | Office | Cardiology | Yesi, | | | 2019 | Visit | | JOSE ALBERTO Linder [address] | | | | | | [place] | | | | | | [place] [address] | | | | | | [phone] | | | | | | | | +--------+---------+ + + + documented as of this encounter Visit Diagnoses + + | Diagnosis | + + | Epistaxis - Primary | + + documented in this encounter
--- OUTSIDE RECORDS SUMMARY | ~2019-05-18 | XMS | Encounter Summary ---
Demographics + + + | Address | [address] | | | [place] [address] | + + + | Home Phone [...] | Author | [facility] | | | and [place] | + + + | Organization | [facility] [...] | | | | | [place] [address] | | + + + + + | Hunter Jackson | ECON | [place] | | + + + + + | Wes Jackson | ECON | [place], [place] | | + + + + + | Oziel Jackson | ECON | [place], [place] | | + + + + + Care Team Providers + +------+ + | Care Retort Furnace Operator Name | Role | Phone [...] | [address] | | | | | [address] | | | | | | [phone] | | | +--------+--------+ + + + [...] | | | | | | [place] [address] | | | | | | [phone] | | | | | | | | +--------+---------+ + + + documented as of this encounter Visit Diagnoses Not on filedocumented in this encounter"
--- OUTSIDE RECORDS SUMMARY | ~2019-05-18 | XMS | Encounter Summary ---
Demographics + + + | Address | [address] | | | [place] [address] | + + + | Home Phone [...] Author | [facility] | | | and [place] | + + + | Organization | [facility] | | [...] | | | | | [place] [address] | | + + + + + | Hunter Jackson | ECON | [place] | | + + + + + | Wes Jackson | ECON | [place], [place] | | + + + + + | Oziel Jackson | ECON | [place], [place] | | + + + + + Care Team Providers + +------+ + | Care Toy Stuffer Name | Role | Phone | + [...] | 11/13/ | Refill | [facility] | Rodolfo Cruz, | Medication Refill | | 2016 | | MEDICINE [address] | [address] | | | | | [place] | [place] [address] | | | | | [place] [address] | [address] | | | | | [phone] | | | +--------+--------+ + + + [...] | | | | | | [place] [address] | | | | | | [phone] | | | | | | | | +--------+---------+ + + + documented as of this encounter Visit Diagnoses Not on filedocumented in this encounter"
--- OUTSIDE RECORDS SUMMARY | ~2019-05-18 | XMS | Encounter Summary ---
Demographics + + + | Address | [address] | | | [place] [address] | + + + | Home Phone [...] | Author | [facility] | | | and [place] | + + + | Organization | [facility] | [...] | | | | | [place] [address] | | + + + + + | Hunter Jackson | ECON | [place] | | + + + + + | Wes Jackson | ECON | [place], [place] | | + + + + + | Oziel Jackson | ECON | [place], [place] | | + + + + + Care Team Providers + +------+ + | Care Roll Up Machine Operator Name | Role | Phone [...] | ulcer | [address] | RESTAURANT KITCHEN AND SERVICE MANAGER [address] | | | | | disease) | [place] | [address] | | | | | | [place] | [address] | | | | | | [address] | [place] | | | | | | Phone: | [address] Phone: | | | | | | [phone] | [phone] | | | | | | Fax: | Fax: | | | | | | [phone] | [phone] | +--------+ + + + + + [...] bone | Rodolfo Reilly MD | [address] | | | | | lesions on | [address] | [place], | | | | | xray | [address]VE [place] | [place] [address] | | | | | Procedures | [place], [place] | Phone: | | | | | CT Chest | [address] | [phone] | | | | | Abdomen | Phone: | Fax: | | | | | Pelvis w | [phone] | [phone] | | | | | Contrast | Fax: | | | | | | | [phone] | | +--------+--------+ + + + + Reason for Visit + + + | Reason | Comments | + + + | Follow-up | 3 week | + + + Encounter Details +--------+---------+ + + + | Date | Type | Department | Care Team | Description | +--------+---------+ + + + | 11/08/ | Office | [facility] | Rodolfo Cruz, | Lytic bone lesions | | 2013 | Visit | MEDICINE [address] [place] [address] | [address] | on xray (Primary | | | | Street [place] | [place], [place] | Dx); Back pain; | | | | [place] [address] | [phone] | Constipation; PUD | | | | [phone] | | (peptic ulcer | | | [...] [place] | | | | | | [address] | | | | | | | | +--------+---------+ + + + | 11/21/ | Office | Cardiology | Yesi, | | | 2019 | Visit | | JOSE ALBERTO Linder [address] | | | | | | [place], | | | | | | [place] [address] | | | | | | [phone] | | | | | | | [...] intravenous | | administration of 90 mL [id number] contrast. Oral contrast was administered. | | [...] + | MISCELLANEOUS LAB | | | [phone] | + +---------+ + + | MISCELANIOUS LAB | | | [phone] | + +---------+ + + documented in [...]
--- OUTSIDE RECORDS SUMMARY | ~2019-05-18 | XMS | Encounter Summary ---
Demographics + + + | Address | [address] | | | [place] [address] | + + + | Home Phone [...] | Author | [facility] | | | and [place] | + + + | Organization | [facility] [...] [place] | | | | | [place] [address] | | + + + + + | Hunter Jackson | ECON | [place] | | + + + + + | Wes Jackson | ECON | [place], [place] | | + + + + + | Oziel Jackson | ECON | [place], [place] | | + + + + + Care Team Providers + +------+ + | Care Forest Fire Lookout Name | Role | Phone | + +------+ + | Gunderson, Kellie PA | PCP | | + +------+ + Encounter Details +--------+---------+ + + + | Date | Type | Department | Care Team | Description | +--------+---------+ + + + | 10/16/ | Surgery | [facility] | Irina Simms, | CV LHC | | 2017 | | MED CTR CV INTRA OP | MD [address] [place] | | | | | [address] | [place], | | | | | [place] | [place] [address] | | | | | [address] | [phone] | | | | | [phone] | | | +--------+---------+ + + + [...] You cannot be awakened Date Last Reviewed: 02/27/201619998680-9297 [employer] [address] [place] [address], [place] [id number]. All righ ts reserved. This information is [...] by your healthcare provider Date Last Reviewed: 07/07/201319992384-4943 [employer] [address] [place] [id number]. All righ ts reserved. This information is [...] | | | | | | [place] [address] | | | | | | [phone] | | | | | | | [...] (1935) OF PROCEDURE: | | | 10/16/2016 MANAGER PROCESS: Irina Simms MD PROCEDURES | | | [...]
--- OUTSIDE RECORDS SUMMARY | ~2019-05-18 | XMS | Encounter Summary ---
Demographics + + + | Address | [address] | | | [place] [address] | + + + | Home Phone [...] + | Author | [facility] | | | and Ohana | + + + | Organization | [facility] | | [...] S[place] | | | | | [place] [address] | | + + + + + | Hunter [place] | ECON | [place] | | + + + + + | Wes [place] | ECON | [place], [place] | | + + + + + | Oziel [place] | ECON | [place], [place] | | + + + + + Care Team Providers + +------+ + | Care Online Marketing Strategist Name | Role | Phone | + [...] | JOSE ALBERTO Linder | [address] | | | | | ia, mixed | [address] | [place], | | | | | Chest pain, | [place] | [place] | | | | | unspecified | [place], | [address] | | | | | type | [place] | Phone: | | | | | Procedures | [address] | [phone] | | | | | [place] Nuclear | Phone: | Fax: | | | | | Stress Test | [phone] | [phone] | | | | | (Vasodilator | Fax: | | | | | | ) CHG | [phone] | | | | | | MYOCARDIAL | | | | | | | SPECT | | | | | | | MULTIPLE | | | | | | | STUDIES [place] | | | | | | | CV STRS TST | | | | | | | XERS&/OR RX | | | | | | | CONT ECG W/O | | | | | | | I&R [place] | | | | | | | [...] + + | 07/16/ | Hospital | [facility] | Yesi, | | | 2017 | Encounter | MED CTR NUCLE[facility] | JOSE ALBERTO Linder [address] | | | | | MEDICINE [address] | [place], | | | | | [place], | [place] [address] | | | | | [place] [address] | [phone] | | | | | [phone] | | | +--------+ + + + [...] | | | | 7 | | [facility]LAST[facility] [address]) | | | | | | [...] STREETER | | | | | | [address] | | | | | | | | +--------+---------+ + + + | 11/21/ | Office | Cardiology | Yesi, | | | 2019 | Visit | | JOSE ALBERTO Linder [address] | | | | | | [place], | | | | | | [place] [address] | | | | | | [phone] | | | | | | | [...]
--- OUTSIDE RECORDS SUMMARY | ~2019-05-18 | XMS | Encounter Summary ---
Demographics + + + | Address | [address] | | | [place] [address] | + + + | Home Phone [...] + | Author | [facility] | | | and Ohana | + + + | Organization | [facility] | | [...] | | | | | [place] [address] | | + + + + + | Gisele [place] | ECON | [place] | | + + + + + | Wes [place] | ECON | [place], [place] | | + + + + + | Oziel [place] | ECON | [place], [place] | | + + + + + Care Team Providers + +------+ + | Care Forestry Hunter Name | Role | Phone | + [...] | | | | | disease), | [address] | [address] | | | | | lumbar | Phone: | Phone: | | | | | Facet | [phone] | [phone] | | | | | arthritis of | Fax: | Fax: | | | | | lumbar | [phone] | [phone] | | | | | region | [...] [place] | | | | | | [address] | [address] Phone: | | | | | | Phone: | [phone] | | | | | | [phone] | Fax: | | | | | | Fax: | [phone] | | | | | | [phone] | | +--------+ + + + + + Encounter Details +--------+---------+ + + + | Date | Type | Department | Care Team | Description | +--------+---------+ + + + | 08/24/ | Office | [facility] | Harsha Selby | Chronic low back | | 2014 | Visit | PHYSIATRY [address] | MD Josh [address] | pain (Primary Dx); | | | | [place], | [place] | DDD (degenerative | | | | [place] [address] | [address] | disc disease), | | | | [phone] | | lumbar; Facet | | | [...] y.o. female being seen today at [facility] of Dr. Rodolfo Cruz for complaints of [...] Location: [facility] PROC[facility] CURRENT MEDICATIONS: Current Outpatient [...] STREETER | | | | | | [address] | | | | | | | | +--------+---------+ + + + | 11/21/ | Office | Cardiology | Yesi, | | 2019 | Visit | | JOSE ALBERTO Linder [address] | | | | | | [place] | | | | | | [place] [address] | | | | | | [phone] | | | | | | | [...]
--- OUTSIDE RECORDS SUMMARY | ~2019-05-18 | XMS | Encounter Summary ---
Demographics + + + | Address | [address] | | | [place] [address] | + + + | Home Phone [...] Author | [facility] | | | and Ohana | + + + | Organization | [facility] | | [...] SWA[place] | | | | | [place] [address] | | + + + + + | Hunter [place] | ECON | [place] | | + + + + + | Wes [place] | ECON | [place], [place] | | + + + + + | Oziel [place] | ECON | [place], [place] | | + + + + + Care Team Providers + +------+ + | Care Secondary Spanish Teacher Name | Role | Phone | [...] | Visit | ORTHOPEDIC SURGERY | [facility] | carpometacarpal | | | | [facility] | [facility] [place] | ([facility]) joint of right | | | | [place], [place] | [address] | thumb (Primary Dx); | | | | [address] | | Rotator cuff tear | | | | [phone] | | arthropathy of right | | [...] [place] | | | | | | [address] | | | | | | | | +--------+---------+ + + + | 11/21/ | Office | Cardiology | Yesi, | | | 2019 | Visit | | JOSE ALBERTO Linder [address] | | | | | | [place], | | | | | | [place] [address] | | | | | | [phone] | | | | | | | [...]
--- OUTSIDE RECORDS SUMMARY | ~2019-05-18 | XMS | Encounter Summary ---
Demographics + + + | Address | [address] | | | [place] [address] | + + + | Home Phone [...] | Author | [facility] | | | and Ohana | + + + | Organization | [facility] | | [...] | | | | | [place] [address] | | + + + + + | Hunter [place] | ECON | [place] | | + + + + + | Wes [place] | ECON | [place], [place] | | + + + + + | Oziel [place] | ECON | [place], [place] | | + + + + + Care Team Providers + +------+ + | Care Construction Tech Name | Role | Phone | [...] + + | 11/24/ | Office | [facility] | Rodolfo Cruz, | Anemia (Primary Dx); | | 2013 | Visit | [address] | MD [address] | UGI bleed; PUD | | | | Street [facility] | [place] | (peptic ulcer | | | | [place] [address] | [address] | disease) | | | | [phone] | | | +--------+---------+ + + + [...] W | | | | | | [place], | | | | | | [place] [address] | | | | | | [phone] | | | | | | | [...]
--- OUTSIDE RECORDS SUMMARY | ~2019-05-18 | XMS | Encounter Summary ---
Demographics + + + | Address | [address] | | | [place] [address] | + + + | Home Phone [...] | Author | [facility] | | | and Ohana | + + + | Organization | [facility] | | [...] [place] | | | | | [place] [address] | | + + + + + | Hunter [place] | ECON | [place] | | + + + + + | Wes [place] | ECON | [place], [place] | | + + + + + | Oziel [place] | ECON | [place], [place] | | + + + + + Care Team Providers + +------+ + | Care Supervisor Kennel Name | Role | Phone | + [...] [address] | | | | | [place], | [place], | | | | | [place] [address] | [place] [address] | | | | | [phone] | [phone] | | | | | | | [...] STREETER | | | | | | [address] | | | | | | | | +--------+---------+ + + + | 11/21/ | Office | Cardiology | Yesi | | | 2019 | Visit | | JOSE ALBERTO Linder [address] | | | | | | [place] | | | | | | [place] [address] | | | | | | [phone] | | | | | | | | +--------+---------+ + + + documented as of this encounter Visit Diagnoses Not on filedocumented in this encounter"
--- OUTSIDE RECORDS SUMMARY | ~2019-05-18 | XMS | Encounter Summary ---
Demographics + + + | Address | [address] | | | [place] [address] | + + + | Home Phone [...] | Author | [facility] | | | and Ohana | + + + | Organization | [facility] | | [...] | | | | | [place] [address] | | + + + + + | Hunter [place] | ECON | [place] | | + + + + + | Wes [place] | ECON | [place], [place] | | + + + + + | Oziel [place] | ECON | [place], [place] | | + + + + + Care Team Providers + +------+ + | Care Sed High School Teacher Name | Role | Phone | + +------+ + | Rodolfo Cruz MD | PCP | | + +------+ + Encounter Details +--------+ + + + + | Date | Type | Department | Care Team | Description | +--------+ + + + + | 03/23/ | Hospital | [facility] | Rodolfo Cruz, | Pre-procedure lab | | 2015 | Encounter | MED CTR LABORATORY | MD [address] | exam | | | | [address] [place] | [place], [place] | | | | | [place] | [address] | | | | | [address] | | | | | | [phone] | | | +--------+ + + + [...] STREETER | | | | | | [address] | | | | | | | | +--------+---------+ + + + | 11/21/ | Office | Cardiology | Yesi, | | | 2019 | Visit | | JOSE ALBERTO Linder [address] | | | | | | [place] | | | | | | [place] [address] | | | | | | [phone] | | | | | | | [...] [place] | | | | | | [address] | | | | + + + [...] [address] | [place] [address] | [phone] | + + + + + Comprehensive [...] mL/min/1.73m2 | [facility] | | | BRITISH | RATE,ESTIMATED | | MEDICAL | | | | mL/min/1.55f0Jucv than | | CENTER - | | [...] + | [facility] [facility] | [address] | [place], [place] | [phone] | | [facility] | | [address] | | | - LABORATORY | | [...] | | | | | [place] [address] | | | | + + + [...] [address] | [place] [address] | [phone] | + + + + + documented in this encounter Visit Diagnoses + + | Diagnosis | + + | Pre-procedure lab exam Pre-procedural laboratory examination | + + documented in this encounter"
--- OUTSIDE RECORDS SUMMARY | ~2019-05-18 | XMS | Encounter Summary ---
Demographics + + + | Address | [address] | | | [place] [address] | + + + | Home Phone [...] Author | [facility] | | | and Ohana | + + + | Organization | [facility] | [...] | | | | | [place] [address] | | + + + + + | Hunter [place] | ECON | [place] | | + + + + + | Wes [place] | ECON | [place], [place] | | + + + + + | Oziel [place] | ECON | [place], [place] | | + + + + + Care Team Providers + +------+ + | Care Extension Service Supervisor Name | Role | Phone | + +------+ + | Rodolfo Cruz MD | PCP | | + +------+ + Encounter Details +--------+ + + + + | Date | Type | Department | Care Team | Description | +--------+ + + + + | 08/05/ | Orders Only | [facility] | Rodolfo Cruz, | History of hepatitis | | 2015 | | MEDICINE [address] [place] [address] | MD [address] | (Primary Dx) | | | | [facility] | [place], [place] | | | | | [place] [address] | [address] | | | | | [phone] | | | +--------+ + + + [...] | | | | | | [place] [address] | | | | | | [phone] | | | | | | | [...] | LAB PAML | | | | [id number] or greater | | | | | [...] | | | | | [place] [address] | | | | + + + [...] [place] | | | | | | [address] | | | | + + + [...] [address] | [place] [address] | [phone] | + + + + + documented in this encounter Visit Diagnoses + + | Diagnosis | + + | History of hepatitis - Primary Personal history of other infectious and parasitic | | disease | + + documented in this encounter"
--- OUTSIDE RECORDS SUMMARY | ~2019-05-18 | XMS | Encounter Summary ---
Demographics + + + | Address | [address] | | | [place] [address] | + + + | Home Phone [...] | [facility] | | | and Ohana | + + + | Organization | [facility] | | [...] | | | | | [place] [address] | | + + + + + | Gisele [place] | ECON | [place] | | + + + + + | Wes [place] | ECON | [place], [place] | | + + + + + | Oziel [place] | ECON | [place], [place] | | + + + + + Care Team Providers + +------+ + | Care Curator Herbarium Name | Role | Phone | + [...] | Services | Therapy | Thoracic | Rodoflo Reilly MD | G[place] | | | Required | | back pain | [address] [facility] | HOSPITAL | | | | | | AVE [place] | [address] [facility] | | | | | | [place] | AVE | | | | | | [address] | [place] | | | | | | Phone: | [address] | | | | | | [phone] | Phone: | | | | | | Fax: | [phone] | | | | | | [phone] | Fax: | | | | | | | [phone] | +--------+ + + + + + [...] + + | 03/29/ | Office | [facility] | Rodolfo Cruz, | Thoracic back pain | | 2014 | Visit | MEDICINE [facility] [place]ione | MD [address] | (Primary Dx); | | | | Street [place] | [facility] [place] | Anemia; Epistaxis; | | | | [facility] [place] [address] | [address] | Insomnia; Back pain | | | | [phone] | |Back pain | +--------+---------+ + + [...] Epistaxis, recent , seen at ER in [place]. No recurrence using an ointment and decongest [...] | | 2019 | Visit | | [facility] DIONE | | | | | | [place] | | | | | | [address] | | | | | | | | +--------+---------+ + + + | 11/21/ | Office | Cardiology | Yesi, | | | 2019 | Visit | | JOSE ALBERTO Linder [address] | | | | | | [place], | | | | | | [place] [address] | | | | | | [phone] | | | | | | | [...]
--- OUTSIDE RECORDS SUMMARY | ~2019-05-18 | XMS | Encounter Summary ---
Demographics + + + | Address | [address] | | | [place] [address] | + + + | Home Phone [...] Author | [facility] | | | and [place]ana | + + + | Organization | [facility] | [...] | | | | | [place] [address] | | + + + + + | Hunter [place] | ECON | [place] | | + + + + + | Wes [place] | ECON | [place], [place] | | + + + + + | Oziel [place] | ECON | [place], [place] | | + + + + + Care Team Providers + +------+ + | Care Salvage Inspector Name | Role | Phone | [...] | 11/06/ | Refill | [facility] | Rodolfo Cruz, | Medication Refill | | 2016 | | MEDICINE [address] | MD [address] | | | | | [place] | [place] | | | | | [place] [address] | [address] | | | | | [phone] | | | +--------+--------+ + + + [...] | | | | | | [place] [address] | | | | | | [phone] | | | | | | | | +--------+---------+ + + + documented as of this encounter Visit Diagnoses + + | Diagnosis | + + | Hyperglycemia - Primary Other abnormal glucose | + + documented in this encounter"
--- OUTSIDE RECORDS SUMMARY | ~2019-05-18 | XMS | Encounter Summary ---
Demographics + + + | Address | [address] | | | [place] [address] | + + + | Home Phone [...] Author | [facility] | | | and Ohana | + + + | Organization | [facility] | [...] | | | | | [place] [address] | | + + + + + | Hunter [place] | ECON | [place] | | + + + + + | Wes [place] | ECON | [place], [place] | | + + + + + | Oziel [place] | ECON | [place], [place] | | + + + + + Care Team Providers + +------+ + | Care Business Lawyer Name | Role | Phone | + +------+ + | Rodolfo Cruz MD | PCP | | + +------+ + Encounter Details +--------+ + + + + | Date | Type | Department | Care Team | Description | +--------+ + + + + | 11/26/ | Hospital | [facility] | Rodolfo Cruz, | Memory loss; | | 2015 | Encounter | MED CTR LABORATORY | MD [address] | Urticaria, | | | | [address] [place] | [place], [place] | unspecified | | | | [place], [place] | [address] | | | | | [address] | | | | | | [phone] | | | +--------+ + + + [...] + + + +---------+ + + | [place] 3 1000 MG | Take by mouth. [...] STREETER | | | | | | [address] | | | | | | | | +--------+---------+ + + + | 11/21/ | Office | Cardiology | Yesi, | | | 2019 | Visit | | JOSE ALBERTO Linder [address] | | | | | | [place], | | | | | | [place] [address] | | | | | | [phone] | | | | | | | [...] [address] | [place] | [phone] | | [facility] | | [address] | | | - LABORATORY | | [...] + | [facility] | [address] | [place] | [phone] | | [facility] | | [address] | | | - LABORATORY | | [...] [address] | [place] | [phone] | | [facility] | | [address] | | | - LABORATORY | | | | + + + + + documented in this encounter Visit Diagnoses + + | Diagnosis | + + | Memory loss | + + | Urticaria, unspecified | + + documented in this encounter"
--- OUTSIDE RECORDS SUMMARY | ~2019-05-18 | XMS | Encounter Summary ---
Demographics + + + | Address | [address] | | | [place] [address] | + + + | Home Phone [...] + | Author | [facility] | | | and Ohana | + + + | Organization | [facility] [...] | | | | | [place] [address] | | + + + + + | Hunter [place] | ECON | [place] | | + + + + + | Wes [place] | ECON | [place], [place] | | + + + + + | Oziel [place] | ECON | [place], [place] | | + + + + + Care Team Providers + +------+ + | Care Almond Blancher Operator Name | Role | Phone | + +------+ + | Sugar Cruz MD | PCP | | + +------+ + Reason for Visit + + + | Reason | Comments | + + + | Follow-up | recurrent epistaxis,last one was Friday,did go to the ER in | | | [place] | + + + Evaluate & Treat [...] [place], | | | | | | [address] | [place] [address] | | | | | | Phone: | Phone: | | | | | | [phone] | [phone] | | | | | | Fax: | Fax: | | | | | | [phone] | [phone] | +--------+ + + + + + [...] [place], [place] | | | | | [place], [place] | [address] | | | | | [address] | | | | | | [phone] | Zion Valencia MD | | | | | | [address] [place] | | | | | | [address] [place], [place] | | | | | | [address] | | | | | | | [...] MD - 08/31/2014 11:06 AM PDT [facility] OT[facility] [address] [place] [address] OFFICE NOTE ZION VALENCIA MD Patient: JACLYN JACKSON Admitting: MR #: [id number] LOC: PT TYPE: Adm Date: 08/31/2014 : 1935 DATE OF VISIT: 08/31/2014. The patient has continued to have further problems with epistaxis. She was seen back in [facility]. She was treated in the emergency [...] 08/31/2014 11:06:56 Transcribed on 08/31/2014 11:19:[address] [facility] [facility] job# [id number] Confirmation #: [id number] cc: SUGAR CRUZ [facility] - 08/31/2014 11:03 AM PDTSee dictation # [id number] signed by Zion Valencia MD at 08/31/2014 [...] | | | | | | [place] [address] | | | | | | [phone] | | | | | | | [...]
--- OUTSIDE RECORDS SUMMARY | ~2019-05-18 | XMS | Encounter Summary ---
Demographics + + + | Address | [address] | | | [place] [address] | + + + | Home Phone [...] | Author | [facility] | | | and [place]ana | + + + | Organization | [facility] | | [...] | | | | | [place] [address] | | + + + + + | Hunter Jcakson | ECON | [place] | | + + + + + | Wes [place] | ECON | [place], [place] | | + + + + + | Oziel [place] | ECON | [place], [place] | | + + + + + Care Team Providers + +------+ + | Care Enrobing Machine Corder Name | Role | Phone | + [...] | | | [place] | [place] | | | | | | [address] | [address] Phone: | | | | | | Phone: | [phone] | | | | | | [phone] | Fax: | | | | | | Fax: | [phone] | | | | | | [phone] | | +--------+ + + + + + Reason for Visit + + + | Reason | Comments | + + + | Follow-up | | + + + Encounter Details +--------+---------+ + + + | Date | Type | Department | Care Team | Description | +--------+---------+ + + + | 09/03/ | Office | [facility] | Rodolfo Cruz, | Hypertension | | 2013 | Visit | MEDICINE [place] | [address] | (Primary Dx); Right | | | | [address] | [place] | ankle pain; | | | | [place] | [address] | Gastroenteritis; | | | | [address] | | Vertigo | | | | [phone] | | | +--------+---------+ + + + [...] | | | | | | [place] [address] | | | | | | [phone] | | | | | | | [...] + | [facility] | [address] | [place], [place] | [phone] | | [facility] | | [address] | | | - LABORATORY | | | | + + + + + | [facility] | [address] | [place], [place] | | | [facility] | | [address] | | | - LABORATORY | | [...] | | Basophils | | | [facility] | | | | | | MEDICAL [...] [address] | [place] | [phone] | | [facility] | | [address] | | | - LABORATORY | | | | + + + + + | [facility] | [address] | [place] | | | [facility] | | [address] | | | - LABORATORY | | [...] - 1.030 | [facility] | | | [place] | | | [facility] | | [...] + | [facility] | [address] | [place] | [phone] | | [facility] | | [address] | | | - LABORATORY | | | | + + + + + | [facility] | [address] | [place], [place] | | | [facility] | | [address] | | | - LABORATORY | | [...]
--- OUTSIDE RECORDS SUMMARY | ~2019-05-18 | XMS | Encounter Summary ---
Demographics + + + | Address | [address] | | | [place] [address] | + + + | Home Phone [...] | Author | [facility] | | | and [place]ana | + + + | Organization | [facility] | | [...] | | | | | [place] [address] | | + + + + + | Hunter [place] | ECON | [place] | | + + + + + | Wes Jacskon | ECON | [place], [place] | | + + + + + | Oziel Jackson | ECON | [place], [place] | | + + + + + Care Team Providers + +------+ + | Care Bailer Operators Supervisor Name | Role | Phone | [...] + | 05/02/ | Refill | [facility] | Rodolfo Cruz, | Medication Refill | | 2015 | | MEDICINE [address] | MD [address] | | | | | [place] | [place] | | | | | [place] [address] | [address] | | | | | [phone] | | | +--------+--------+ + + + [...] | | | | | | [place] [address] | | | | | | [phone] | | | | | | | | +--------+---------+ + + + documented as of this encounter Visit Diagnoses + + | Diagnosis | + + | Pain - Primary Generalized pain | + + documented in this encounter"
--- OUTSIDE RECORDS SUMMARY | ~2019-05-18 | XMS | Encounter Summary ---
Demographics + + + | Address | [address] | | | [place] [address] | + + + | Home Phone [...] + | Author | [facility] | | | and [place] | + + + | Organization | [facility] | [...] | | | | | [place] [address] | | + + + + + | Hunter Jackson | ECON | [place] | | + + + + + | Wes Jackson | ECON | [place], [place] | | + + + + + | Oziel [place] | ECON | [place], [place] | | + + + + + Care Team Providers + +------+ + | Care Chemical Tank Worker Name | Role | Phone | [...] | 04/25/ | Refill | [facility] | Rodolfo Cruz, | Medication Refill | | 2013 | | MEDICINE [address] | MD [address] | | | | | [place] | [place] [address] | | | | | [place] [address] | [address] | | | | | [phone] | | | +--------+--------+ + + + [...] | | | | | | [place] [address] | | | | | | [phone] | | | | | | | | +--------+---------+ + + + documented as of this encounter Visit Diagnoses + + | Diagnosis | + + | Insomnia - Primary Insomnia, unspecified | + + documented in this encounter"
--- OUTSIDE RECORDS SUMMARY | ~2019-05-18 | XMS | Clinical Summary ---
Demographics + + + | Address | [address] | | | [place] [address] | + + + | Home Phone | | + + + | Preferred Language | Unknown | + + + | Marital Status | Single | + + + | Moravian Affiliation [...] Team Providers + +------+ + | Care Laminated Plastics Assembler And Gluer Name | Role | Phone | + +------+ + PCP | Unavailable | + +------+ + Source Comments KULDIP is fully live on both [facility] Ambulatory and [facility] InPatient.[facility] Allergies Not on File Medications Not [...] | | | | | | | [address] | | + +--------+ +--------+ + +--------+ | MODA | MODA | [phone] | Effect | [phone] | [address] | [address] | | | [place] | | faiza | 4 | [address] | | | | [place] | | for | | [place], | | | | | | all | | [place] [address] | | | | | | dates [...] | 1936 | [phone] | [place] [address] | | | saba | | | 9 (Home) | | + +--------+ +--------+ + +"
--- OUTSIDE RECORDS SUMMARY | ~2019-05-18 | XMS | Encounter Summary ---
Demographics + + + | Address | [address] | | | [place] [address] | + + + | Home Phone [...] Author | [facility] | | | and [place] | + + + | Organization | [facility] | | | [...] | | | | | [place] [address] | | + + + + + | Hunter Jackson | ECON | [place] | | + + + + + | Wes Jackson | ECON | [place], [place] | | + + + + + | Oziel Jackson | ECON | [place], [place] | | + + + + + Care Team Providers + +------+ + | Care Auto Brake Technician Name | Role | Phone | [...] + + | 02/28/ | Office | [facility] | Ulysses Jensen, | Osteoarthritis of | | 2016 | Visit | ORTHOPEDIC SURGERY | [address] | first | | | | [address] [facility] | [place] | carpometacarpal | | | | [place] | [address] | (CMC) joint of one | | | | [address] | | hand (Primary Dx); | | | | [phone] | | Rotator cuff | | | [...] STREETER | | | | | | [address] | | | | | | | | +--------+---------+ + + + | 11/21/ | Office | Cardiology | Yesi, | | | 2019 | Visit | | JOSE ALBERTO Linder [address] | | | | | | [place], | | | | | | [place] [address] | | | | | | [phone] | | | | | | | [...] | | (Comment | | Intramuscular, ONCE, [facility] 02/29/16 | | AM PDT | [...] | | | | ONCE, [facility] 02/29/16 at 0000, For 1 | | | | | | | dose, Shake well. Not for IV | | | | | | | use., | | | | | | + +-------+ +-------+---+ + +---+---+ | | | +---+---+ documented in this encounter"
--- OUTSIDE RECORDS SUMMARY | ~2019-05-18 | XMS | Encounter Summary ---
Demographics + + + | Address | [address] | | | [place] [address] | + + + | Home Phone [...] + | Author | [facility] | | | and [place]ana | + + + | Organization | [facility] | [...] [place]WA[place] | | | | | [place] [address] | | + + + + + | Hunter Jackson | ECON | [place] | | + + + + + | Wes Jackson | ECON | [place], [place] | | + + + + + | Oziel Jackson | ECON | [place], [place] | | + + + + [...] | | | | | artery | [address] | [address], | | | | | disease) | [place], | [place] [address] | | | | | Procedures | [place] [address] | Phone: | | | | | Has CAD and | Phone: | [phone] | | | | | needs to be | [phone] | Fax: | | | | | avaluated | Fax: | [phone] | | | | | for bypass | [phone] | | | | | | surgery. | | | +--------+--------+ + + + + Encounter Details +--------+---------+ + + + | Date | Type | Department | Care Team | Description | +--------+---------+ + + + | 10/31/ | Office | [facility] | Eze, | Coronary artery | | 2017 | Visit | [facility] | MD [address] | disease of wilton | | | | [facility] [address] [place] | artery of [place] | | | | [address] | [id number] | heart with stable | | | | [place] | | angina pectoris | | | | [address] | | ([facility]) (Primary Dx) | | | | [phone] | | | +--------+---------+ + + + [...] STREETER | | | | | | [address] | | | | | | | | +--------+---------+ + + + | 11/21/ | Office | Cardiology | Yesi, | | | 2019 | Visit | | JOSE ALBERTO Linder [address] | | | | | | [place] | | | | | | [place] [address] | | | | | | [phone] | | | | | | | | +--------+---------+ + + + documented as of this encounter Visit Diagnoses + + | Diagnosis | + + | 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
--- OUTSIDE RECORDS SUMMARY | ~2019-05-18 | XMS | Encounter Summary ---
Demographics + + + | Address | [address] | | | [place] [address] | + + + | Home Phone [...] + | Author | [facility] | | | and [place] | + + + | Organization | [facility] | | [...] | | | | | [place] [address] | | + + + + + | Hunter Jackson | ECON | [place] | | + + + + + | Wes Jackson | ECON | [place], [place] | | + + + + + | Oziel Jackson | ECON | [place], [place] | | + + + + + Care Team Providers + +------+ + | Care Executive Communications Manager Name | Role | Phone | [...] [place] | | | | | | [address] | [address] | | | | | | Phone: | Phone: | | | | | | [phone] | [phone] | | | | | | Fax: | Fax: | | | | | | [phone] | [phone] | +--------+ + + + + + Reason for Visit + + + | Reason | Comments | + + + | Toe Pain | right | + + + Encounter Details +--------+---------+ + + + | Date | Type | Department | Care Team | Description | +--------+---------+ + + + | 12/24/ | Office | [facility] | Rodolfo Cruz, | Back pain (Primary | | 2013 | Visit | MEDICINE [facility] [address] | [address] | Dx); Anemia; Right | | | | Street [place] | [place] [address] | foot pain; | | | | [place] [address] | [id number] | Osteoarthritis | | | | [phone] | | | +--------+---------+ + + + [...] 5 living, 10 grandchildren 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
--- OUTSIDE RECORDS SUMMARY | ~2019-05-18 | XMS | Encounter Summary ---
Demographics + + + | Address | [address] | | | [place] [address] | + + + | Home Phone [...] | | | | | [place] [address] | | + + + + + | Hunter Jackson | ECON | [place] | | + + + + + | Wes Jackson | ECON | [place], [place] | | + + + + + | Oziel Jackson | ECON | [place], [place] | | + + + + + Care Team Providers + +------+ + | Care Harness Fitter Name | Role | Phone | [...] + + | 10/21/ | Telephone | [facility] | Rodolfo Cruz, | Chest Pain (Call to | | 2013 | | MEDICINE [address] | [address] | pt to verify) | | | | [address] [place] | [place] | | | | | [place] [address] | [address] | | | | | [phone] | | | +--------+ + + + [...] | | | | | | [place] [address] | | | | | | [phone] | | | | | | | | +--------+---------+ + + + documented as of this encounter Visit Diagnoses + + | Diagnosis | + + | Thoracic sprain and strain, initial encounter - Primary | + + documented in this encounter"
--- OUTSIDE RECORDS SUMMARY | ~2019-05-18 | XMS | Encounter Summary ---
Demographics + + + | Address | [address] | | | [place] [address] | + + + | Home Phone [...] | [facility] | | | and Ohana | + + + | Organization | [facility] [...] | | | | | [place] [address] | | + + + + + | Hunter Jackson | ECON | [place] | | + + + + + | Wes Jackson | ECON | [place], [place] | | + + + + + | Oziel aJckson | ECON | [place], [place] | | + + + + + Care Team Providers + +------+ + | Care Petroleum Sampler Name | Role | Phone | [...] Pulmonary | Rodolfo Reilly MD | [address] | | | | | nodules | [address] | [place], | | | | | Procedures | [place] | [place] [address] | | | | | CT Chest w | [place], [place] | Phone: | | | | | Contrast | [address] | [phone] | | | | | AFTER | Phone: | Fax: | | | | | 02/17/15 | [phone] | [phone] | | | | | | Fax: | | | | | | | [phone] | | +--------+--------+ + + + + [...] Pulmonary | Rodolfo Reilly MD | [address] | | | | | nodules | [address] | [place], | | | | | Procedures | A[place] | [place] [address] | | | | | CT Chest w | [place], [place] | Phone: | | | | | Contrast | [address] | [phone] | | | | | AFTER | Phone: | Fax: | | | | | 02/17/15 | [phone] | [phone] | | | | | | Fax: | | | | | | | [phone] | | +--------+--------+ + + + + Encounter Details +--------+ + + + + | Date | Type | Department | Care Team | Description | +--------+ + + + + | 03/23/ | Hospital | [facility] | Rodolfo Cruz, | Pulmonary nodules | | 2015 | Encounter | MED CTR [address] | [address] | | | | | [place], | [place], [place] | | | | | [place] [address] | [address] | | | | | [phone] | | | | | | | Provider Not, In | | | | | | System [facility] | | | | | | Health [...] W | | | | | | [place], | | | | | | [place] [address] | | | | | | [phone] | | | | | | | [...] nodules. COMPARISON: 08/18/2014, 02/22/2014. PROTOCOL: Axial | [facility] | | images of the chest were obtained after uneventful administration of | [facility] | | 75 mL Omnipaque 350. [...] + | [facility] | [address] | [place] | [phone] | | [facility] | | [address] | | | - IMAGING | | [...] mL/min/1.73m2 | [facility] | | | ETHIOPIAN | | | MEDICAL | | | [...] ST. | [address] | [place] | [phone] | | [facility] | | [address] | | | - LABORATORY | | [...]
--- OUTSIDE RECORDS SUMMARY | ~2019-05-18 | XMS | Encounter Summary ---
Demographics + + + | Address | [address] | | | [place] [address] | + + + | Home Phone [...] + | Author | [facility] | | | and [place] | + + + | Organization | [facility] | [...] | | | | | [place] [address] | | + + + + + | Hunter Jackson | ECON | [place] | | + + + + + | Wes Jackson | ECON | [place], [place] | | + + + + + | Oziel Jackson | ECON | [place], [place] | | + + + + + Care Team Providers + +------+ + | Care Coremaker Bench Name | Role | Phone | + [...] + | 03/25/ | Office | [facility] | Alejandra Ferris MS | Dizziness (Primary | | 2011 | Visit | AUDIOLOGY AND | [facility] [address] | Dx) | | | | [facility] SERVICES | [address] [facility] | | | | | [address] | [place] [address] | | | | | [address] [facility] | [phone] | | | | | [place] [address] | | | | | | [phone] | | | +--------+---------+ + + + [...] being dizzy upon waking up one morning. [place] like the room was spinning. 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 A full hearing evaluation was carried out and unruly ent was scheduled to see Dr. Davis, ENT. Please see audiogram for hearing test results.Sariah ctronically signed by Alejandra Ferris, CCC-A at 03/25/2012 1:00 PM Zion Rosas MD - 1 05/25/2011 12:00 AM [facility] ENT AND AUDIOLOGY [address] [place], [place] [address] FAX: [phone] OFFICE VISIT The patient comes in because she has had a couple of episodes where she had a lot of dizzin ess. She describes the episodes as problems when she would sometimes look down or look up, she would get a spinning type of sensation. This would go on and off probably for about a w barrow. It then subsided and then occurred again [...] other ENT complaints at the [facility] rent time. EXAMINATION GENERAL: Shows an alert [...] on her hearing. Zion Davis MD / [facility] JOB #: [id number] signed by Zion Davis MD at 03/25/2012 [...] STREETER | | | | | | [id number] | | | | | | | | +--------+---------+ + + + | 11/21/ | Office | Cardiology | Yesi, | | | 2019 | Visit | | JOSE ALBERTO Linder [address] | | | | | | [place], | | | | | | [place] [address] | | | | | | [phone] | | | | | | | | +--------+---------+ + + + documented as of this encounter Visit Diagnoses + + | Diagnosis | + + | Dizziness - Primary Dizziness and giddiness | + + documented in this encounter"
--- OUTSIDE RECORDS SUMMARY | ~2019-05-18 | XMS | Encounter Summary ---
Demographics + + + | Address | [address] | | | [place] [address] | + + + | Home Phone [...] Author | [facility] | | | and [place] | + + + | Organization | [facility] | | | and [place] | + + + | Address | Unknown | + + + | Phone | Unavailable | + + + Support + + + + + | Name | Relationship | Address | Phone | + + + + + | Osmin Jackson | ECON | [address] | | | | | [place] [address] | | + + + + + | Hunter Jackson | ECON | [place] | | + + + + + | Wes Jackson | ECON | [place], [place] | | + + + + + | Oziel Jackson | ECON | [place], [place] | | + + + + + Care Team Providers + +------+ + | Care Sales Agent Fire Insurance Name | Role | Phone | [...] | Ulysses Rios MD | [address] | | | | | right | [address] | [place], | | | | | shoulder | [place] | [place] | | | | | pain | [place] | [address] | | | | | Procedures | [address] | Phone: | | | | | MRI Shoulder | Phone: | [phone] | | | | | Right wo | [phone] | Fax: | | | | | Contrast | Fax: | [phone] | | | | | | [phone] | | +--------+--------+ + + + + [...] | Ulysses Rios MD | [address] | | | | | right | [address] | [place], | | | | | shoulder | [place] | [place] | | | | | pain | [place], [place] | [address] | | | | | Procedures | [address] | Phone: | | | | | MRI Shoulder | Phone: | [phone] | | | | | Right wo | [phone] | Fax: | | | | | Contrast | Fax: | [phone] | | | | | | [phone] | | +--------+--------+ + + + + Encounter Details +--------+ + + + + | Date | Type | Department | Care Team | Description | +--------+ + + + + | 09/26/ | Hospital | [facility] | Ulysses Jensen, | Chronic right | | 2017 | Encounter | MED CTR MRI [address] | [address] | shoulder pain | | | | [place], | [place], [place] | | | | | [place] [address] | [address] | | | | | [phone] | | | +--------+ + + + [...] STREETER | | | | | | [address] | | | | | | | | +--------+---------+ + + + | 11/21/ | Office | Cardiology | Yesi, | | | 2019 | Visit | | JOSE ALBETRO Linder [address] | | | | | | [place], | | | | | | [place] [address] | | | | | | [phone] | | | | | | | [...] Axial proton density fat sat, coronal proton [facility] | | density fat sat, sagittal [...] [address] | [place] | [phone] | | [facility] | | [address] | | | - IMAGING | | | | + + + + + documented in this encounter Visit Diagnoses + + | Diagnosis | + + | Chronic right shoulder pain Pain in joint, shoulder region | + + documented in this encounter"
--- OUTSIDE RECORDS SUMMARY | ~2019-05-18 | XMS | Encounter Summary ---
Demographics + + + | Address | [address] | | | [place] [address] | + + + | Home Phone [...] | Author | [facility] | | | and [place] | + + + | Organization | [facility] | [...] | | | | | [place] [address] | | + + + + + | Hunter Jackson | ECON | [place] | | + + + + + | Wes Jackson | ECON | [place], [place] | | + + + + + | Oziel Jackson | ECON | [place], [place] | | + + + + [...] + + | 05/22/ | Abstract | [facility] | Yesi, | | | 2015 | | BECCA [address] | JOSE ALBERTO Linder [address] | | | | | [place], | [place], | | | | | [place] [address] | [place] [address] | | | | | [phone] | [phone] | | | | | | | [...] STREETER | | | | | | [address] | | | | | | | | +--------+---------+ + + + | 11/21/ | Office | Cardiology | Yesi, | | | 2019 | Visit | | JOSE ALBERTO Linder [address] | | | | | | [place] | | | | | | [place] [address] | | | | | | [phone] | | | | | | | [...] Agency Comment | + + | [facility] | + + + +---------+ + [...] Agency Comment | + + | [facility] | + + + +---------+ + [...] Agency Comment | + + | [facility] | + + + +---------+ + [...]
--- OUTSIDE RECORDS SUMMARY | ~2019-05-18 | XMS | Encounter Summary ---
Demographics + + + | Address | [address] | | | [place] [address] | + + + | Home Phone [...] | Author | [facility] | | | and [place] | + + + | Organization | [facility] | [...] | | | | | [place] [address] | | + + + + + | Hunter Jackson | ECON | [place] | | + + + + + | Wes Jackson | ECON | [place], [place] | | + + + + + | Oziel Jackson | ECON | [place], [place] | | + + + + + Care Team Providers + +------+ + | Care Pneumatic Systems Operator Name | Role | Phone | [...] + | 03/01/ | Refill | [facility] | Rodolfo Cruz, | Medication Refill | | 2013 | | MEDICINE [address] | [address] | | | | | [place] | [place] | | | | | [place] [address] | [address] | | | | | [phone] | | | +--------+--------+ + + + [...] | | | | | | [place] [address] | | | | | | [phone] | | | | | | | | +--------+---------+ + + + documented as of this encounter Visit Diagnoses + + | Diagnosis | + + | Back pain - Primary Backache, unspecified | + + documented in this encounter"
--- OUTSIDE RECORDS SUMMARY | ~2019-05-18 | XMS | Encounter Summary ---
Demographics + + + | Address | [address] | | | [place] [address] | + + + | Home Phone [...] Author | [facility] | | | and [place] | + + + | Organization | [facility] | | | [...] | | | | | [place] [address] | | + + + + + | Hunter Jackson | ECON | [place] | | + + + + + | Wes Jackson | ECON | [place], [place] | | + + + + + | Oziel Jackson | ECON | [place], [place] | | + + + + + Care Team Providers + +------+ + | Care Asset Liability Analyst Name | Role | Phone | [...] | [address] | | | | | [address] | | | | | | [phone] | | | +--------+--------+ + + + [...] | | | | | | [place] [address] | | | | | | [phone] | | | | | | | | +--------+---------+ + + + documented as of this encounter Visit Diagnoses Not on filedocumented in this encounter"
--- OUTSIDE RECORDS SUMMARY | ~2019-05-18 | XMS | Encounter Summary ---
Demographics + + + | Address | [address] | | | [place] [address] | + + + | Home Phone [...] | Author | [facility] | | | and [place] | + + + | Organization | [facility] | [...] [place] | | | | | [place] [address] | | + + + + + | Hunter Jackson | ECON | [place] | | + + + + + | Wes Jackson | ECON | [place], [place] | | + + + + + | Oziel Jcakson | ECON | [place], [place] | | + + + + + Care Team Providers + +------+ + | Care Insurance Claims Specialist Name | Role | Phone | [...] | Ulysses Rios MD | [address] | | | | | right | [address] | [place], | | | | | shoulder | [place] | [place] | | | | | pain | [place], [place] | [address] | | | | | Procedures | [address] | Phone: | | | | | MRI Shoulder | Phone: | [phone] | | | | | Right wo | [phone] | Fax: | | | | | Contrast | Fax: | [phone] | | | | | | [phone] | | +--------+--------+ + + + + Reason for Visit + + + | Reason | Comments | + + + | Appointment | | + + + Encounter Details +--------+ + + + + | Date | Type | Department | Care Team | Description | +--------+ + + + + | 09/16/ | Telephone | [facility] | Ulysses Jensen, | Appointment | | 2016 | | ORTHOPEDIC SURGERY | [address] [facility] | | | | | [address] [place] [address] | [place], [place] | | | | | [place], [place] | [address] | | | | | [address] | | | | | | [phone] | | | +--------+ + + + [...] STREETER | | | | | | [address] | | | | | | | | +--------+---------+ + + + | 11/21/ | Office | Cardiology | Yesi, | | | 2019 | Visit | | JOSE ALBERTO Linder [address] | | | | | | [place], | | | | | | [place] [address] | | | | | | [phone] | | | | | | | [...] Evaluate for Rotator Cuff Tear. COMPARISON: | [facility] | | None. PROTOCOL: Axial proton density fat sat, coronal proton | [facility] | | density fat [...] [address] | [place] | [phone] | | [facility] | | [address] | | | - IMAGING | | | | + + + + + documented in this encounter Visit Diagnoses + + | Diagnosis | + + | Chronic right shoulder pain - Primary Pain in joint, shoulder region | + + documented in this encounter"
--- OUTSIDE RECORDS SUMMARY | ~2019-05-18 | XMS | Encounter Summary ---
Demographics + + + | Address | [address] | | | [place] [address] | + + + | Home Phone [...] | [facility] | | | and [place] | + + + | Organization | [facility] [...] | | | | | [place] [address] | | + + + + + | Hunter Jackson | ECON | [place] | | + + + + + | Wes Jackson | ECON | [place], [place] | | + + + + + | Oziel Jackson | ECON | [place], [place] | | + + + + + Care Team Providers + +------+ + | Care Intervention Specialist Name | Role | Phone | + +------+ + PCP | Unavailable | + +------+ + Encounter Details +--------+ + + + + | Date | Type | Department | Care Team | Description | +--------+ + + + + | 11/03/ | [facility] | [facility] | Rodolfo Cruz, | | | 2008 | Encounter | MED CTR XRAY [address] | [address] | | | | | [place] | [place], [place] | | | | | [place] [address] | [address] | | | | | [phone] | | | +--------+ + + + [...] 2019 | Visit | | JOSE ALBERTO [address]re [address] | | | | | | [place] | | | | | | [place] [address] | | | | | | [phone] | | | | | | | | +--------+---------+ + + + documented as of this encounter Visit Diagnoses Not on filedocumented in this encounter"
--- OUTSIDE RECORDS SUMMARY | ~2019-05-18 | XMS | Encounter Summary ---
Demographics + + + | Address | [address] | | | [place] [address] | + + + | Home Phone [...] | [facility] | | | and Ohana | + + + | Organization | [facility] | [...] | | | | | [place] [address] | | + + + + + | Hunter Jackson | ECON | [place] | | + + + + + | Wes Jackson | ECON | [place], [place] | | + + + + + | Oziel Jackson | ECON | [place], [place] | | + + + + + Care Team Providers + +------+ + | Care Manager Process Excellence Name | Role | Phone | + [...] + + | 10/22/ | Office | [facility] | Rodolfo Cruz, | Thoracic sprain and | | 2013 | Visit | MEDICINE [address] [place] [address] | MD [address] | strain, initial | | | | Street [place] | [place], [place] | encounter (Primary | | | | [place] [address] | [address] | Dx); Thoracic sprain | | | | [phone] | | and strain, | | | [...] STREETER | | | | | | [id number] | | | | | | | | +--------+---------+ + + + | 11/21/ | Office | Cardiology | Yesi, | | | 2019 | Visit | | JOSE ALBERTO Linder [address] | | | | | | [place] | | | | | | [place] [address] | | | | | | [phone] | | | | | | | [...] + | MISCELLANEOUS LAB | | | [phone] | + +---------+ + + | MISCELANIOUS LAB | | | [phone] | + +---------+ + + Urinalysis with [...] - 1.030 | [facility] | | | [place] | | | [facility] | | [...] [address] | [place] | [phone] | | [facility] | | [address] | | | - LABORATORY | | | | + + + + + | [facility] | [address] | [place] | | | [facility] | | [address] | | | - LABORATORY | | [...] + | [facility] | [address] | [place] | [phone] | | [facility] | | [address] | | | - LABORATORY | | | | + + + + + | [facility] | [address] | [place] | | | [facility] | | [address] | | | - LABORATORY | | [...] | | | | | mg/dL | [facility] | | | | | | MEDICAL | | | | | | CENTER - | | | | | | LABORATORY | | + + + + + + | eGFR if not | >60Comment: GLOMERULAR | >=60 | [facility] | | | | FILTRATION | mL/min/1.73m2 | [facility] | | | [place] | RATE,ESTIMATED | | MEDICAL | | | | mL/min/1.21a3Ermv than | | CENTER - | | [...] | | | | | mg/dL | [facility] | | | | | | [...] + | [facility] | [address] | [place], [place] | [phone] | | [facility] | | [address] | | | - LABORATORY | | | | + + + + + | [facility] [facility] | [address] | [place] | | | [facility] | | [address] | | | - LABORATORY | | [...] + | [facility] | [address] | [place], [place] | [phone] | | [facility] | | [address] | | | - LABORATORY | | | | + + + + + | [facility] | [address] | [place], [place] | | | [facility] | | [address] | | | - LABORATORY | | | | + + + + + documented in this encounter Visit Diagnoses + + | Diagnosis | + + | Thoracic sprain and strain, initial encounter - Primary | + + | Thoracic sprain and strain, subsequent encounter | + + documented in this encounter
--- OUTSIDE RECORDS SUMMARY | ~2019-05-18 | XMS | Encounter Summary ---
Demographics + + + | Address | [address] | | | [place] [address] | + + + | Home Phone [...] Author | [facility] | | | and Ohana | + + + | Organization | [facility] | [...] [place] | | | | | [place] [address] | | + + + + + | Hunter Jackson | ECON | [place] | | + + + + + | Wes Jackson | ECON | [place], [place] | | + + + + + | Oziel Jackson | ECON | [place], [place] | | + + + + + Care Team Providers + +------+ + | Care Belt Splicer Name | Role | Phone | [...] + + | 08/01/ | Office | [facility] | Yesi, | Aortic valve | | 2017 | Visit | CARDIOLOGY [address] | JOSE ALBERTO Linder [address] | insufficiency, | | | | [place], | [place], | unspecified etiology | | | | [place] [address] | [place] [address] | (Primary Dx); | | | | [phone] | [phone] | Essential | | | | | [...] ECG's available Confirmed by CHRISTOPHER ARECHIGA MD ([id number]) on 07/04/2016 6:13:25 AM LAB RESULTS reviewed during visit today primarily from [facility]: LIPID Lab Results Component Value Date [...] PLTEX 381 05/08/2016 I [address] records from [facility] for office visit on 02which is [...] Seen in the emergency room at [facility] for chest pain. Sh e [...] failure.She is in a class I of [place] [employer] functional class. There is n [...] this chart may have been created with [employer] voice recognition software. Occasi onal wrong-word or [...] STREETER | | | | | | [address] | | | | | | | | +--------+---------+ + + + | 11/21/ | Office | Cardiology | Yesi, | | | 2019 | Visit | | JOSE ALBERTO Linder [address] | | | | | | [place], | | | | | | [place] [address] | | | | | | [phone] | | | | | | | [...]
--- OUTSIDE RECORDS SUMMARY | ~2019-05-18 | XMS | Encounter Summary ---
Demographics + + + | Address | [address] | | | [place] [address] | + + + | Home Phone [...] + | Author | [facility] | | | and [place]ana | + + + | Organization | [facility] | [...] | | | | | [place] [address] | | + + + + + | Hunter Jackson | ECON | [place] | | + + + + + | Wes Jackson | ECON | [place], [place] | | + + + + + | Oziel Jackson | ECON | [place], [place] | | + + + + + Care Team Providers + +------+ + | Care Cosmetician Apprentice Name | Role | Phone | [...] + | 05/02/ | Refill | [facility] | Rodolfo Cruz, | Medication Refill | | 2015 | | MEDICINE [address] | MD [address] | | | | | [place] | [place] | | | | | [place] [address] | [address] | | | | | [phone] | | | +--------+--------+ + + + [...] | | | | | | [place] [address] | | | | | | [phone] | | | | | | | | +--------+---------+ + + + documented as of this encounter Visit Diagnoses + + | Diagnosis | + + | Pain - Primary Generalized pain | + + documented in this encounter"
--- OUTSIDE RECORDS SUMMARY | ~2019-05-18 | XMS | Encounter Summary ---
Demographics + + + | Address | [address] | | | [place] [address] | + + + | Home Phone [...] | Author | [facility] | | | and [place]ana | + + + | Organization | [facility] | [...] | | | | | [place] [address] | | + + + + + | Hunter Jackson | ECON | [place] | | + + + + + | Wes Jackson | ECON | [place], [place] | | + + + + + | Oziel Jackson | ECON | [place], [place] | | + + + + + Care Team Providers + +------+ + | Care Graduate Nurse Name | Role | Phone | [...] | 01/25/ | Refill | [facility] | Rodolfo Cruz, | Medication Refill | | 2015 | | MEDICINE [address] | MD [address] | | | | | [place] | [place] [address] | | | | | [place] [address] | [address] | | | | | [phone] | | | +--------+--------+ + + + [...] | | | | | | [place] [address] | | | | | | [phone] | | | | | | | | +--------+---------+ + + + documented as of this encounter Visit Diagnoses Not on filedocumented in this encounter"
--- OUTSIDE RECORDS SUMMARY | ~2019-05-18 | XMS | Encounter Summary ---
Demographics + + + | Address | [address] | | | [place] [address] | + + + | Home Phone [...] | [facility] | | | and [place] | + + + | Organization | [facility] [...] | | | | | [place] [address] | | + + + + + | Hunter Jackson | ECON | [place] | | + + + + + | Wes Jackson | ECON | [place], [place] | | + + + + + | Oziel Jackson | ECON | [place], [place] | | + + + + + Care Team Providers + +------+ + | Care Zoo Caretaker Name | Role | Phone | + [...] + + | 01/03/ | Office | [facility] | Rodolfo Cruz, | Urticaria, chronic | | 2016 | Visit | MEDICINE [facility] [address] | MD [address] | (Primary Dx) | | | | [address] [place] | [place] | | | | | [place] [address] | [address] | | | | | [phone] | | | +--------+---------+ + + + [...] [place] | | | | | | [address] | | | | | | | | +--------+---------+ + + + | 11/21/ | Office | Cardiology | Yesi, | | | 2019 | Visit | | JOSE ALBERTO Linder [address] | | | | | | [place], | | | | | | [place] [address] | | | | | | [phone] | | | | | | | [...] [place] | | | | | | [address] | | | | + + + [...] [facility] | [address] | [place] [address] | [phone] | + + + + + DNA [...] | | | | | [place] [address] | | | | + + + [...] [address] | [place] [address] | [phone] | + + + + + CBC [...] [address] | [place] | [phone] | | [facility] | | [address] | | | - LABORATORY | | | | + + + + + documented in this encounter Visit Diagnoses + + | Diagnosis | + + | Urticaria, chronic - Primary Other specified urticaria | + + documented in this encounter"
--- OUTSIDE RECORDS SUMMARY | ~2019-05-18 | XMS | Encounter Summary ---
Demographics + + + | Address | [address] | | | [place] [address] | + + + | Home Phone [...] | [facility] | | | and [place] | + + + | Organization | [facility] [...] S[place] | | | | | [place] [address] | | + + + + + | Hunter Jackson | ECON | [place] | | + + + + + | Wes Jackson | ECON | [place], [place] | | + + + + + | Oziel Jackson | ECON | [place], [place] | | + + + + + Care Team Providers + +------+ + | Care Supply Chain Tech Name | Role | Phone | [...] | | | disease | [address] | | | | | | involving | [place] | | | | | | poarch | [id number] | | | | | | coronary | Phone: | | | | | | artery of | [phone] | | | | | | poarch heart | Fax: | | | | | | with | [phone] | | | | | | unstable | | | | | | | angina | | | | | | | pectoris | | | | | | | ([facility]) | | | +--------+ + + [...] | | atherosclero | | [address] | | | | | sis of | | AVE [place], | | | | | unspecified | | [place] [address] | | | | | type of | | Phone: | | | | | vessel, | | [phone] | | | | | poarch or | | Fax: | | | | | graft | | [phone] | | | | | Coronary | | | | | | | atherosclero | | | | | | | sis of | | | | | | | unspecified | | | | | | | type of | | | | | | | vessel, | | | | | | | poarch or | | | | | | | graft | | | | | | | Procedures | | | | | | | MD ENDOSCOPY | | | | | | | | | | | | | | W/VIDEO-ASST | | | | | | | VEIN | | | | | | | HARVEST,CABG | | | | | | | MD CABG, | | | | | | | ARTERY-VEIN, | | | | | | | FOUR MD | | | | | | | CABG, | | | | | | | ARTERIAL, | | | | | | | SINGLE | | | +--------+--------+ + + + + Encounter Details +--------+ + + + + | Date | Type | Department | Care Team | Description | +--------+ + + + + | 11/01/ | Hospital | [facility] | Eze, | Coronary artery | | 2017 - | Encounter | [facility] | MD Christina [address] [place] [address] | disease, angina | | | | CARDIAC TELEMETRY | [address] [place] | presence | | 11/06/ | | [address] | [address] | unspecified, | | 2017 | | [place] | | unspecified vessel | | | | [address] | | or lesion type, | | | | [phone] | | unspecified whether | | | | | | poarch or | | | | | | transplanted heart | | | | | | (Primary Dx); | | | | | | Valvular heart | | | | | | disease; Anemia, | | | | | | unspecified type; | | | | | | Coronary artery | | | | | | disease involving | | | | | | poarch coronary | | | | | | artery of poarch | | | | | | heart with unstable | | | | | | angina pectoris | | | | | | ([facility]); Stress | | | | | [...] might be different f rom the original. [facility] DISCHARGE SUMMARY PATIENT NAME: Jaclyn Jackson : 1935: AGE: 81 y.o. ADMISSION DATE: 11/01/2016 DISCHARGE DATE: 11/06/2016 PRIMARY CARE: FLORA Morgan Patient ID: Jaclyn Jackson [id number] 81 y.o. 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 Suhail Torres Endocrinology: [facility] Course: The patient proceeded to OR on [...] questions concerns or worries. Follow-Up: Follow-up Information Iirna Simms MD On 11/22/2016. Specialty: Cardiology Why: at 11:00 am Contact information: [address] [facility] [address] Call Christina Loo MD. Specialty: Cardiothoracic Surgery Why: As needed, If symptoms worsen. Otherwise okay to follow up postop with Dr. Cevallos Contact information: [address] [facility] [id number] FLORA Morgan. Schedule an appointment as soon as possible for a visit in 2 weeks. Specialty: Physician Ground Products Director Why: Primary care follow up after cardiac surgery Contact information: [address], [address] [place] [address] If patient has any further questions or concerns prior to above, instructed to call our off ice. [phone]. Time spent on discharge planning: less than [...] Mario London PA-C 11/06/2016 13:12 Cardiothoracic Surgery [facility] [address], [address] [place], [place] [id number] Portions of this chart may have been created with Splice [employer] voice recognition software. Occasi onal wrong-word or sound-alike substitutions may have occurred due to the inherent doe itations of voice recognition software. Please read the chart carefully and recognize, using context, where these substitutions have occurred. documented in this encounter Discharge Instructions Instructions Dominga Hernandez RN - 11/06/2016Formatting of this note might be different fro m the original. [facility] [...] ed help. Don t lift anything heavier [id number] for 4-6 weeks. Until approved by your [...] the hospital, begin with short wal ks ([id number]) at home. Go a little longer each [...] symptoms you had prior to surgery Fever [id number] New or spreading redness, swelling, drainage, or warmth at the incision site New or worsening shortness of breath Fainting Weight gain of more vcrz4vliwok [id number] or more kqve4gvvabu gu9eptn(s) New or increasedswelling in your hands, feet, [...] person(s) in the waiting room?: Mary - [phone] Patient Signature: Clinician/Splitter Head Signature: documented in this encounter Medications at [...] patient and daughter. Prescriptions reviewed, pt to olive picker at [facility] pharmacy. Questions answered. Advised of follow up appointme nts and to schedule follow up with PCP. Pt given Mg citrate this am with multiple BM's. To s hower and change and DC home to [place] by car with daughter. Update: Pt showered, dressed. States that she has all belongings. WC transport placed to pa in doors. Daughter picked up meds at [...] PRIMARY HOSPITAL PROBLEM: Coronary artery disease involving poarch coronary artery of poarch heart with unstable miranda na pectoris (HCC) CHIEF COMPLAINT: CAD ASSESSMENT Anemia Assessment & Plan H/H 9.12/07 stable Hyperlipidemia, mixed Assessment & Plan Continue statin * Coronary artery disease involving poarch coronary artery of poarch heart with unstable an nayeli pectoris (HCC) Assessment & Plan POD #6 Coronary artery bypass grafting x3 (VERDUZCO-LAD, rSVG-Diag, rSVG-RCA) LVEF 65% prostoperatively. PLAN OK to dc to home follow up in [place] SUBJECTIVE DATA SUBJECTIVE: tired after having BM [...] PA- C - 11/06/2016 9:10 AM PDT [facility] Progress Note Pt. Name/Age/: Jaclyn Jackson 81 y.o. 1935 Med. Record Number: [id number] Date of admission: 11/01/2016 Hospital Day: 6 5 Days Post-Op Procedure: CABGx3 Date of Surgery: 11/01/16 Surgeon: Dr. Christina Loo MD. Anusha Flores PA-C assisting SUBJECTIVE Background History: 81 y.o. female with CAD admitted electively for above surgery Intraop findings: poor vein, composite graft from [facility] for diag; poor reop candidate. Nor [...] PLAN Principal Problem: Coronary artery disease involving poarch coronary artery of poarch heart with unstable an nayeli pectoris Active [...] Mario London PA-C 11/06/2016 9:10 Cardiothoracic Surgery [facility] [address] [place] [address] Portions of this chart may have been created with Splice Machine voice recognition software. Occasi onal wrong-word or [...] be different from the original. PATIENT NAME: Jaclny Jackson : 1935: AGE: 81 y.o. ADMISSION DATE: 11/01/2016 Hospital Day: Hospital Day: 5 Code Status: Full Code DATE OF SERVICE: 11/05/2016 JOSE ALBERTO [place] CARDIOLOGY DAILY PROGRESS NOTE PRIMARY HOSPITAL PROBLEM: Coronary artery disease involving poarch coronary artery of poarch heart with unstable miranda na pectoris (HCC) CHIEF COMPLAINT: Feeling well, no shortness of breath or chest pain ASSESSMENT Anemia Assessment & Plan H/H stable WBC trending down Oral Iron replacement? * Coronary artery disease involving poarch coronary artery of poarch heart with unstable an nayeli pectoris (HCC) [...] Portions of this chart were created with Splice Machine voice recognition software. Occasional wro ng-word or [...] feels quite well Follow-up can be in [place] from the cardiac standpoint They will talk with the surgeon regarding surgical follow-up and if it can be done locally or they need to come here. Suhail Flannery MD [facility] 11/05/2016 16:36 During this hospital visit, [...] might be differen t from the original. [facility] Daily Progress Note 11/05/2016 Pt. Name/Age/: Jaclyn Jackson 81 y.o. 1935 Med. Record Number: [id number] Date of admission: 11/01/2016 Hospital Day: 5 4 Days Post-Op LVEF: 60-70 Procedure: CABGx3 Date of Surgery: 11/01/16 Surgeon: Dr. Christina Loo MD. Anusha Flores PA-C assisting Interval Events Uneventful night. ASSESSMENT: POD# 4 S/P CABGx3 - Overall doing well, hemodynamics stable, needs BM, on min imal O2, plan home tomorrow to [place] with daughter in law. Neuro: --Hx TIA [...] Dispo: --Plan home with family tomorrow to [place] --Will need to f/u with [facility] in 1 month --Ok per cardiology to f/u with cards in [place] CURRENT PLAN Increase norvasc Change IV to [...] Earlene Bonilla PA-C 11/05/2016 7:30 Cardiothoracic Surgery [facility] [address] [place] [address] I have participated in the care of this patient and I have reviewed and agree with the pert inent clinical information with the following additions/exceptions: Continue diuresis. May be able to go home tomorrow. Electronically signed by: Joe Quinn MD, 11/05/2016 14:29 Zainab Leyav ARNP - 11/04/2016 11:24 AM PDTFormatting of this note might be different from the o riginal. PATIENT NAME: Jaclyn Jackson : 1935: AGE: 81 y.o. ADMISSION DATE: 11/01/2016 Hospital Day: Hospital Day: 4 Code Status: Full Code DATE OF SERVICE: 11/04/2016 JOSE ALBERTO [place] CARDIOLOGY DAILY PROGRESS NOTE PRIMARY HOSPITAL PROBLEM: Coronary artery disease involving poarch coronary artery of poarch heart with unstable miranda na pectoris (HCC) CHIEF COMPLAINT: Tired, incisional pain but no chest pain or shortness of breath ASSESSMENT Anemia Assessment & Plan H/H 9.12/07 and stable WBC trending down * Coronary artery disease involving poarch coronary artery of poarch heart with unstable an nayeli pectoris (HCC) Assessment & Plan 11/01/2016: Coronary artery bypass grafting x3 (VERDUZCO-LAD, rSVG-Diag, rSVG-RCA) LVEF 65% pro stoperatively. -Continue Amlodipine, Aspirin, Statin, Metoprolol -ECG without acute changes PLAN Continue current medications Increase ambulation Follow up with Screen Tacker in [place] SUBJECTIVE DATA REVIEW OF SYSTEMS: CV: negative [...] Portions of this chart were created with Splice Machine voice recognition software. Occasional wro ng-word or [...] presentation. Followup: She wants her followup in [place] and that is fine by me. I am not sure if surgical fo llowup in [place] is acceptable. Suhail Flannery MD [facility] 11/04/2016 17:32 During this hospital visit, [...] Jackson DATE OF : 1935 MED RECORD: [id number] Pre-OP Dx Coronary artery disease Hypertension Dyslipidemia history of transient ischemic attack Hypothyroidism mild aortic regurgitation and calcified mitral annulus with calcium nodule in posterior mitral leaflet. Procedure 11/01/16 1. Coronary artery bypass surgery times 3, VERDUZCO to LAD, saphenous vein graft to diagonal, saphenous vein graft to right coronary artery. 2. Endoscopic vein harvest, left greater saphenous vein. SURGEON: Christina Loo MD JACKER FEEDER: Anusha Flores PA-C SUBJECTIVE Sitting in chair. [...] 7.46 7.47 PO2ART 113* 118* 116* 156* OZW3RGR 44* 47* 33 35 W1SZZEXW 95.2 95.6 95.7 96.8 BEART -- -- [...] regarding this --home ~2d Serene Castillo PA-C [facility] 11/04/2016, 8:02 I have [...] Chronic low back pain 08/24/2014 Clotting disorder ([facility]) 2013 duodenal ulcer COPD (chronic obstructive pulmonary disease) ([facility]) DDD (degenerative disc disease), cervical 07/25/2016 DDD (degenerative disc disease), lumbar 08/24/2014 DJD (degenerative joint disease) 07/08/2013 Encounter for blood transfusion November 2013 Environmental allergies Essential hypertension Facet arthritis of lumbar region ([facility]) 08/24/2014 Foraminal stenosis of cervical region [...] 08/30/2010 Stenosis of cervical spine 07/25/2016 Stroke ([facility]) Apr 2010 TIA 05/08/2010 Tinea corporis 01/31/2015 UGIB (upper gastrointestinal bleed) 11/14/2013 Valvular heart disease 05/23/2010 Vertigo 09/03/2012 Past Surgical History: Procedure Laterality Date CARDIAC CATHERIZATION N/A 10/16/2016 Procedure: CV LHC; Surgeon: Irina Simms MD; Location: [facility] CV LAB COLONOSCOPY 05/2002; 03/28/10 next due 03/2020 FOOT FRACTURE SURGERY Left 2004 HEMORRHOID SURGERY [id number] Removal lower left nodules 2004 THYROIDECTOMY TONSILLECTOMY AND ADENOIDECTOMY 1955 UPPER GASTROINTESTINAL ENDOSCOPY 11/15/2013 EGD * IP RM: 428 * ; Laterality: N/A; Surgeon: Lauri Garrison MD; Location: [facility] MEDICAL PROCEDURE UNIT UPPER GASTROINTESTINAL ENDOSCOPY 11/04/2013 EGD IP 449; Laterality: N/A; Surgeon: Samm Pandya MD; Location: [facility] MEDICAL P ROCEDURE UNIT reports that [...] (Taking) TABS Take one by mouth three uatumn es daily. cetirizine (ZYRTEC) 10 mg tablet [...] Procedure Component Value Units Date/Time MRSA NAAT [[id number]] Collected: 10/31/16 1520 Order Status: Completed Lab [...] Electronically signed by: Flor Lynch Diabetes team, [facility] [phone] Autumn, JOSE ALBERTO Joseph - 11/03/2016 10:37 AM PDT PATIENT NAME: Jaclyn Jackson : 1935: AGE: 81 y.o. ADMISSION DATE: 11/01/2016 Hospital Day: Hospital Day: 3 Code Status: Full Code DATE OF SERVICE: 11/03/2016 JOSE ALBERTO [place] CARDIOLOGY DAILY PROGRESS NOTE PRIMARY HOSPITAL PROBLEM: Coronary artery disease involving poarch coronary artery of poarch heart with unstable miranda na pectoris (HCC) CHIEF COMPLAINT: Pain better controlled, walking the hallways ASSESSMENT Anemia Assessment & Plan No CBC from this AM, yesterday H/H 9.9/29.5 CBC in AM * Coronary artery disease involving poarch coronary artery of poarch heart with unstable an nayeli pectoris (HCC) Assessment & Plan 11/01/2016: Coronary artery bypass grafting x3 (VERDUZCO-LAD, rSVG-Diag, rSVG-RCA) LVEF 65% pro stoperatively. -Continue Amlodipine, Aspirin, statin, Metoprolol -ECG without acute changes PLAN Continue current medications Patient would like to follow up with cardiology in [place] SUBJECTIVE DATA REVIEW OF SYSTEMS: CV: negative [...] Portions of this chart were created with Splice Machine voice recognition software. Occasional wro ng-word or [...] halls without problems She has an established compliance intern in [place] up with her. Suhail Flannery MD [facility] 11/03/2016 15:57 During this hospital visit, [...] MD - 11/03/2016 8:58 AM P DT [facility] HEART CARDIOTHORACIC SURGERY PROGRESS NOTE Pt. Name/Age/: Jaclyn Jackson 81 y.o. 1935 Med. 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 Making good progress. Mando Calles MD u, Suhail washington MD - 11/02/2016 11:21 AM PDT [facility]: PATIENT NAME: Jaclyn Jackson : 1935: AGE: 81 y.o. ADMISSION DATE: 11/01/2016 Admitting Provider: Christina Loo MD Primary Provider: FLORA Morgan Hospital Day: Hospital Day: 2 LOS: 1 Code Status: Full Code Screen Tacker: Suhail Flannery MD [facility] DATE OF SERVICE: 11/02/2016 PRIMARY HOSPITAL PROBLEM: CABG for 3 VD from [facility] CHIEF COMPLAINT: Chest pain and nausea ASSESSMENT Discussion: Chest pain and nausea Will reassess with EKG, but seems incisional to me EKG looks fine, minimal change Labs look good, and overall she seems to be doing well CT tube are out, and NSR Anemia Assessment & Plan Actually looks good with 9.9 post op (11.7 prior). Coronary artery disease involving poarch coronary artery of poarch heart with unstable miranda na pectoris (HCC) [...] showing left jugular venous access an d [place] catheter and to the area of segmental right lower lobe arteries. Total number o f images: 1. IMPRESSION: Fluoroscopic assisted right jugular venous access with [place] c atheter. Signed by: Fredy Miranda Xr [...] 11/02/16 0711/02/16 07 - 11/03/16 0700 Shift 0193-8259 7606-0472 24 Hour Total 8325-2467 2950-7361 24 Hour Total I N T A [...] note and vitals reviewed. Suhail Flannery MD [facility] 11/02/2016 11:21 eeves, Mando willis MD - 11/02/2016 7:46 AM PDT [facility] HEART CARDIOTHORACIC SURGERY PROGRESS NOTE Pt. Name/Age/: Jaclyn Jackson 81 y.o. 1935 Med. Record Number: [id number] Date of admission: 11/01/2016 POD 1 Procedure: [...] -Levothyroxine 50 g daily Chronic pain -Takes [place] 7.5 and Voltaren ointment at home History [...] Electronically signed by: Amna Benavides PA-C Physician Ground Products Director [facility] Cardiothoracic Surgery 11/02/2016 7:46 [facility] Addendum: Doing well though difficult night [...] Sanchez LICSW - 11/01/2016 6:00 PM PDT Delivery Clerk: Pt resides in [place], [place]. She has Medicare coverage. Will follow progress post op and any other therapy recommendations for discharge planning. Semaj Keith - 11/01/2016 2:22 PM PDTPatigabriel nt arrived to room 260, vitals stable. Sedated. Reported received. mna Benavides PA-C - 11/01/2016 1:26 PM PDT [facility] Immediate Post-Operative Note Subjective Pt. Name/Age/: Jaclyn Jackson 81 y.o. 1935 Med. Record Number: [id number] Date of admission: 11/01/2016 Procedure: Coronary artery [...] Results Component Value Date PHART 7.47 11/01/2016 GUN7WMT 36 11/01/2016 PO2ART 290 11/01/2016 V1OQZJNJC 13.9 (L) 11/01/2016 UWB6GDI 26.0 11/01/2016 BEART 2.6 (H) 11/01/2016 HGB [...] -Levothyroxine 50 g daily Chronic pain -Takes [place] 7.5 and Voltaren ointment at home History of TIA -no neuro deficits upon admission History of asthma -uses albuterol at home Electronically signed by: Amna Benavides PA-C 11/01/2016 13:26 Cardiothoracic Surgery [facility] [address] [place] [address] Portions of this chart may have been created with Splice Machine voice recognition software. Occasi onal wrong-word or [...] STREETER | | | | | | [id number] | | | | | | | | +--------+---------+ + + + | 11/21/ | Office | Cardiology | Yesi, | | 2019 | Visit | | JOSE ALBERTO Linder [address] | | | | | [place], | | | | | | [place] [address] | | | | | | [phone] | | | | | | | [...] Occurrences starting | | | | | poarch coronary | 11/04/2016 until | | | | | artery of poarch | 11/04/2016 | | | | | [...] involving | | | | | | poarch coronary | | | | | | artery of poarch | | | | | | heart [...] | | | | | | vessel, poarch or | | | | | | [...] whether | | | | | | poarch or | | | | | | [...] whether | | | | | | poarch or | | | | | | [...] whether | | | | | | poarch or | | | | | | [...] whether | | | | | | poarch or | | | | | | [...] whether | | | | | | poarch or | | | | | | [...] whether | | | | | | poarch or | | | | | | [...] whether | | | | | | poarch or | | | | | | [...] + + | Glucose | 114 (H)Comment: Lebanese | 65 - 99 mg/dL | [facility] | | | | Diabetes Association [...] [facility] | [address] | [place] [address] | | | [facility] | [...] + | [facility] | [address] | [place] [address] | | | [facility] | | | | | LABORATORY [...] + + | [facility] | [address] | [place] [address] | | | HEART [facility] [...] + + | [facility] | [address] | [place] [address] | | | [facility] | | | | | LABORATORY [...] + + | [facility] | [address] | [place] [address] | | | [facility] | [...] + + | Glucose | 115 (H)Comment: Lebanese | 65 - 99 mg/dL | [facility] | | | | Diabetes Association | [...] + | [facility] | [address] | [place] [address] | | | [facility] | | | | | LABORATORY [...] + + | [facility] M[facility] | [address] | [place] [address] | | | [facility] | | | | | LABORATORY [...] [address] | [place] [address] | | | HE[facility] [...] [address] | [place] [address] | | | [facility] | | | | | LABORATORY [...] + | [facility] MIRAN[facility] | [address] | [place] [address] | | | [facility] | | | | | LABORATORY [...] + + | [facility] | [address] | [place] [address] | | | [facility] | [...] | [facility] | | Duration:140 msP Horizontal Melrose:-43 degP Front Melrose:60 degQ Onset:514 | | | msQRSD Interval:78 msQT Interval:384 msQTcB:426 msQTcF:412 msQRS | | | Horizontal Melrose:3 degQRS Melrose:21 degI-40 Horizontal Melrose:-8 degI-40 | | | Front Melrose:15 degT-40 Horizontal Melrose:-6 degT-40 Front Melrose:22 degT | | | Horizontal Melrose:44 degT Wave Melrose:12 degS-T Horizontal Melrose:42 degS-T | | | Front Mel[place]:22 degSeverity:- BORDERLINE ECG -INTERP:SINUS | | | RHYTHMINTERP:PROBABLE LEFT ATRIAL ABNORMALITYElectronically signed by: | | | PATRICK BURKETT 11-09-2016 13:17:14 | | |QTcB:426 ms | | |QTcF:412 ms | | |QRS Horizontal Melrose:3 deg | | |QRS Melrose:21 deg | | |I-40 Horizontal Melrose:-8 deg | | |I-40 Front Melrose:15 deg | | |T-40 Horizontal Melrose:-6 deg | | |T-40 Front Melrose:22 deg | | |T Horizontal Melrose:44 deg | | |T Wave Melrose:12 deg | | |S-T Horizontal Melrose:42 deg | | |S-T Front Melrose:22 deg | | |Severity:- BORDERLINE ECG - | | |INTERP:SINUS RHYTHM | | |INTERP:PROBABLE LEFT ATRIAL ABNORMALITY | | |Electronically signed by: PATRICK BURKETT 11-09-2016 13:17:14 | | + + + + + + + + | Performing | Address | City/State/Zipcode | Phone Number | | Organization | | | | + + + + + | [facility] | [address] | [place] [address] | [phone] | + + + + + POC [...] [facility]CR[facility] | [address] | [place] [address] | | | [facility] | [...] + | [facility] | [address] | [place] [address] | | | [facility] | | | | | LABORATORY [...] + + | [facility] | [address] | [place] [address] | | | [facility] | | | | | LABORATORY [...] [address] | [place] [address] | | | [facility] [...] [address] | [place] [address] | | | [facility] | | | | | LABORATORY [...] + | [facility] | [address] | [place] [address] | | | [facility] | | | | | LABORATORY [...] + + | [facility] MIRAN[facility] | [address] | [place] [address] | | | [facility] | | | | | LABORATORY [...] [facility]CRED | [address] | [place] [address] | | | [facility] [...] + + | [facility] | [address] | [place] [address] | | | [facility] | | | | | LABORATORY [...] + | OLEGARIO SACRED | [address] | [place] [address] | | | [facility] [...] + + | Glucose | 131 (H)Comment: Lebanese | 65 - 99 mg/dL | [facility] | | | | Diabetes Association [...] SACRED | [address] | [place] [address] | | | [facility] | | | | | LABORATORY [...] + + | MARAHLIBERTADGabriel GRACEDRU | [address] | [place] [address] | | | [facility] | | | | | LABORATORY [...] + | PROVIDENCE SACRED | [address] | [place] [address] | | | [facility] | [...] [address] | [place] [address] | | | [facility] | [...] + + | OLEGARIO MIRANDA | [address] | [place] [address] | | | [facility] | | | | | LABORATORY [...] + + | OLEGARIO SACRDRU | [address] | [place] [address] | | | [facility] [...] SACRED | [address] | [place] [address] | | | [facility] [...] + + | PROVIDELIBERTADE SACRDRU | [address] | [place] [address] | | | [facility] | | | | | LABORATORY [...] + + | OLEGARIO MIRANDA | [address] | [place] [address] | | | [facility] | | | | | LABORATORY [...] + | PROVIDENCE SACRED | [address] | [place] [address] | | | [facility] | [...] + | PROVIDENCE SACRED | [address] | [place] [address] | | | [facility] | | | | | LABORATORY [...] + + | OLEGARIO MIRANDA | [address] | [place] [address] | | | [facility] [...] + + | OLEGARIO MIRANDA | [address] | [place] [address] | | | [facility] | | | | | LABORATORY [...] Patient | | | Name: JACLYN JACKSONJAQUELINE: [id number] | | | Study Date: 11/01/2016DOB: 1935 [...] central AI, no , trace TR, trace MD.5. Normal aorta other than mild | | [...] |Ordering Physician: Christina Loo MD | | |Grapple Crew Leader: Fredy Almaguer MD | | | | | + + + + + | Procedure Note | + + | Remington, Rad Results In - 11/01/2016 2:28 PM PDT | | Adult Intra-Op | | ORA Report | | | | Patient Name: JACLYN JACKSON | | Study Date: 11/01/2016 | | : 1935 Gender: Female | | Age: 81 yrs Location: [facility] MAIN OR | | OOL | | [...] central AI, no , trace TR, trace MD. | | 5. Normal aorta other than [...] Ordering Physician: Christina Loo MD | | Grapple Crew Leader: Fredy Almaguer MD | + + Potassium [...] + | PROVIDENCE SACRED | [address] | [place] [address] | | | [facility] | [...] + + | OLEGARIO MIRANDA | [address] | [place] [address] | | | [facility] | [...] + | PROVIDENCE SACRED | [address] | [place] [address] | | | [facility] | | | | | LABORATORY [...] + + | PROVIDENCE SACRED | [address] | [place] [address] | | | [facility] | | | | | LABORATORY [...] + + | PROVIDENCE SACRED | [address] | [place] [address] | | | [facility] | [...] + | OLEGARIO MIRANDA | [address] | [place] [address] | | | [facility] | | | | | LABORATORY [...] % | PROVIDENCE | | | | [id number] | | SACRED | | | | [...] + + | OLEGARIO MIRANDA | [address] | [place] [address] | | | [facility] | [...] | TRACEMASTER | | Duration:148 msP Horizontal Melrose:6 degP Front Melrose:72 degQ Onset:512 | | | msQRSD Interval:80 msQT Interval:452 msQTcB:463 msQTcF:459 msQRS | | | Horizontal Melrose:16 degQRS Melrose:56 degI-40 Horizontal Melrose:49 degI-40 | | | Front Melrose:45 degT-40 Horizontal Melrose:-8 degT-40 Front Melrose:59 degT | | | Horizontal Melrose:66 degT Wave Melrose:64 degS-T Horizontal Melrose:66 degS-T | | | Front Melrose:38 degSeverity:- NORMAL ECG -INTERP:SINUS | | | RHYTHMElectronically signed by: Ramin PEREZ 11-01-2016 16:20:01 | | |QT Interval:452 ms | | |QTcB:463 ms | | |QTcF:459 ms | | |QRS Horizontal Melrose:16 deg | | |QRS Melrose:56 deg | | |I-40 Horizontal Melrose:49 deg | | |I-40 Front Melrose:45 deg | | |T-40 Horizontal Melrose:-8 deg | | |T-40 Front Melrose:59 deg | | |T Horizontal Melrose:66 deg | | |T Wave Melrose:64 deg | | |S-T Horizontal Melrose:66 deg | | |S-T Front Melrose:38 deg | | |Severity:- NORMAL ECG - | | |INTERP:SINUS RHYTHM | | |Electronically signed by: Ramin PEREZ 11-01-2016 16:20:01 | | + + + + + + + + | Performing | Address | City/State/Zipcode | Phone Number | | Organization | | | | + + + + + | ROSEANN CORREA | [address] | [place] [address] | [phone] | + + + + + XR [...] + + | OLEGARIO MIRANDA | [address] | [place] [address] | | | [facility] | | | | | LABORATORY [...] + | OLEGARIO MIRANDA | [address] | [place] [address] | | | [facility] | [...] + + | OLEGARIO MIRANDA | [address] | [place] [address] | | | [facility] | | | | | LABORATORY [...] | + + + + + | OLEGAIRO SACRDRU | [address] | [place] [address] | | | [facility] [...] | + + + + + | OLEGAROI MIRANDA | [address] | [place] [address] | | | [facility] | | | | | LABORATORY [...] + + | OLEGARIO MIRANDA | [address] | [place] [address] | | | [facility] | | | | | LABORATORY [...] + | PROVIDENCE SACRED | [address] | [place] [address] | | | [facility] | [...] [address] | [place] [address] | | | [facility] | | | | | LABORATORY [...] + | PROVIDENCE SACRED | [address] | [place] [address] | | | [facility] [...] + + | OLEGARIO MIRANDA | [address] | [place] [address] | | | [facility] | [...] + | PROVIDENCE SACRED | [address] | [place] [address] | | | [facility] | [...] + + | OLEGARIO MIRANDA | [address] | [place] [address] | | | [facility] | | | | | LABORATORY [...] + + | OLEGARIO MIRANDA | [address] | [place] [address] | | | [facility] | | | | | LABORATORY [...] | | | jugular venous access and [place]-Michael catheter and to the area of | | | segmental right lower lobe arteries. Total number of images: 1. | | | IMPRESSION: Fluoroscopic assisted right jugular venous access with | | | [place]-Michael catheter. Signed by: Fredy Miranda | | [...] image showing left jugular venous access and [place]-Michael | | catheter and to the area of segmental right lower lobe arteries. | | | | Total number of images: 1. | | | | IMPRESSION: | | Fluoroscopic assisted right jugular venous access with [place]-Michael | | catheter. | | | | [...] | [address] | [place] [address] | | | [facility] [...] + | MARAHLIBERTADGabriel MIRANDA | [address] | [place] [address] | | | [facility] | | | | | LABORATORY [...] | [address] | [place] [address] | | | [facility] | [...] - 1.030 | PROVIDENCE | | | [place] | | | SACRED | | | [...] + + | OLEGARIO MIRANDA | [address] | [place] [address] | | | [facility] | | | | | LABORATORY [...] | | | | | | LAB [place] | | | | | | [facility] | | | | | | [facility] | | | | | | [facility] | | | | | | [facility] | | + + + + + + | Rh Type | Positive | | REFERENCE | | | | | | LAB [place] | | | | | | [facility] | | | | | | [facility] | | | | | | [facility] | | | | | | [facility] | | + + + + + + | Antibody | NegativeComment: Patient | | REFERENCE | | | Screen | is remote crossmatch | | LAB [place] | | | | eligible | | [...] + + + | Specimen Expiration Date: [id number] | REFERENCE LAB | | | [place] | | | [facility] | | | [facility] | + + + + + + + + | Performing | Address | City/State/Zipcode | Phone Number | | Organization | | | | + + + + + | REFERENCE LAB | [address] | [place] [address] | [phone] | | [place] | | | | | [facility] [...] + + | OLEGARIO MIRANDA | [address] | [place] [address] | | | [facility] | [...] + + | OLEGARIO MIRANDA | [address] | [place] [address] | | | [facility] | | | | | LABORATORY | | | | + + + + + Hemoglobin A1C (10/31/2016 4:09 PM PDT) + + + + + + | Component | Value | Ref Range | Performed | Pathologist | | | | | At | Signature | + + + + + + | Hemoglobin | 5.4Comment: The Lebanese | 4.3 - 6.1 % | PROVID[facility] [...] + + | PROVIDENCE SACRED | [address] | [place] [address] | | | [facility] | | | | | LABORATORY [...] + + | OLEGARIO MIRANDA | [address] | [place] [address] | | | [facility] [...] (H) | 21 - 28 mmol/L | [facility] | | | | | | [facility]ED | | | | | | HEART | | | | | | MEDICAL | | | | | | CENTER | | | | | | LABORATORY | | + + + + + + | Glucose | 93Comment: Lebanese | 65 - 99 mg/dL | [place] | | | | Diabetes Association | [...] + + | OLEGARIO MIRANDA | [address] | [place] [address] | | | [facility] | | | | | LABORATORY [...] | TRACEMASTER | | Duration:148 msP Horizontal Melrose:24 degP Front Melrose:69 degQ Onset:512 | | | msQRSD Interval:84 msQT Interval:424 msQTcB:406 msQTcF:412 msQRS | | | Horizontal Melrose:4 degQRS Melrose:36 degI-40 Horizontal Melrose: degI-40 | | | Front Melrose:30 degT-40 Horizontal Melrose:-7 degT-40 Front Melrose:36 degT | | | Horizontal Melrose:60 degT Wave Melrose:61 degS-T Horizontal Melrose:108 degS-T | | | Front Melrose:89 degSeverity:- ABNORMAL ECG -INTERP:SINUS | | | RHYTHMINTERP:CONSIDER LEFT VENTRICULAR HYPERTROPHYElectronically | | | signed by: Ramin PEREZ 11-01-2016 06:15:12 | | |QTcB:406 ms | | |QTcF:412 ms | | |QRS Horizontal Melrose:4 deg | | |QRS Melrose:36 deg | | |I-40 Horizontal Melrose: deg | | |I-40 Front Melrose:30 deg | | |T-40 Horizontal Melrose:-7 deg | | |T-40 Front Melrose:36 deg | | |T Horizontal Melrose:60 deg | | |T Wave Melrose:61 deg | | |S-T Horizontal Melrose:108 deg | | |S-T Front Melrose:89 deg | | |Severity:- ABNORMAL ECG - | | |INTERP:SINUS RHYTHM | | |INTERP:CONSIDER LEFT VENTRICULAR HYPERTROPHY | | |Electronically signed by: Ramin PEREZ 11-01-2016 06:15:12 | | + + + + + + + + | Performing | Address | City/State/Zipcode | Phone Number | | Organization | | | | + + + + + | [facility] TRACEMAST[facility] | [address] | [place] [address] | [phone] | + + + + + MRSA [...] + + | OLEGARIO MIRANDA | [address] 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
--- OUTSIDE RECORDS SUMMARY | ~2019-05-18 | XMS | Encounter Summary ---
Demographics + + + | Address | [address] | | | [place] [address] | + + + | Home Phone [...] Author | [facility] | | | and [place] | + + + | Organization | [facility] [...] | | | | | [place] [address] | | + + + + + | Hunter Jackson | ECON | [place] | | + + + + + | Wes Jackson | ECON | [place], [place] | | + + + + + | Oziel Jackson | ECON | [place], [place] | | + + + + + Care Team Providers + +------+ + | Care Natural Gas Trader Name | Role | Phone | [...] | | | | | | [place] | [facility] | | | | | | [address] | [place] | | | | | | Phone: | [address] Phone: | | | | | | [phone] | [phone] | | | | | | Fax: | Fax: | | | | | | [phone] | [phone] | +--------+ + + + + + Encounter Details +--------+ + + + + | Date | Type | Department | Care Team | Description | +--------+ + + + + | 08/03/ | Hospital | [facility] | Lauri Ayon | Anemia (Primary Dx); | | 2014 | Encounter | MED CTR MEDICAL | MD Rodolfo [address] | Leukocytosis; | | | | [facility]COL[facility]Y CLINIC [address] [place] | Hypothyroidism; | | | | [facility] | [place] [address] | Anemia due to blood | | | | [place] [address] | [phone] | loss, acute; Fatigue | | | | [phone] | | | +--------+ + + + [...] this encounter Progress Notes Jessica Barnes, RN SURGERY ICU - 08/03/2014 11:17 AM PDTREVIEW OF SYSTEMS [...] STREETER | | | | | | [id number] | | | | | | | | +--------+---------+ + + + | 11/21/ | Office | Cardiology | Yesi, | | | 2019 | Visit | | JOSE ALBERTO Linder [address] | | | | | | [place], | | | | | | [place] [address] | | | | | | [phone] | | | | | | | [...] [address] | [place] | [phone] | | [facility] | | [address] | | | - LABORATORY | | [...] | | Sensitive | | | [facility] | | [...] + | [facility] | [address] | [place] | [phone] | | [facility] | | [address] | | | - LABORATORY | | [...] FLANNERY. | [address] | [place] | [phone] | | [facility] | | [address] | | | - LABORATORY | | [...]
--- OUTSIDE RECORDS SUMMARY | ~2019-05-18 | XMS | Encounter Summary ---
Demographics + + + | Address | [address] | | | [place] [address] | + + + | Home Phone [...] | Author | [facility] | | | and [place] | + + + | Organization | [facility] | [...] | | | | | [place] [address] | | + + + + + | Hunter Jackson | ECON | [place] | | + + + + + | Wes Jackson | ECON | [place], [place] | | + + + + + | Oziel Jackson | ECON | [place], [place] | | + + + + + Care Team Providers + +------+ + | Care Iv Therapy Nurse Name | Role | Phone | [...] fasting labs prior | | | | [place], | [place], | to appt) | | | | [place] [address] | [place] [address] | | | | | [phone] | [phone] | | | | | | | [...] STREETER | | | | | | [address] | | | | | | | | +--------+---------+ + + + | 11/21/ | Office | Cardiology | Yesi, | | | 2019 | Visit | | JOSE ALBERTO Linder [address] | | | | | | [place], | | | | | | [place] [address] | | | | | | [phone] | | | | | | | [...] [address] | [place] | [phone] | | [facility] | | [address] | | | - LABORATORY | | | | + + + + + documented in this encounter Visit Diagnoses + + | Diagnosis | + + | Essential hypertension - Primary Unspecified essential hypertension | + + | Hyperlipidemia Other and unspecified hyperlipidemia | + + documented in this encounter"
--- OUTSIDE RECORDS SUMMARY | ~2019-05-18 | XMS | Encounter Summary ---
Demographics + + + | Address | [address] | | | [place] [address] | + + + | Home Phone [...] + | Author | [facility] | | | and [place] | + + + | Organization | [facility] | | [...] | | | | | [place] [address] | | + + + + + | Hunter Jackson | ECON | [place] | | + + + + + | Wes Jackson | ECON | [place], [place] | | + + + + + | Oziel Jackson | ECON | [place], [place] | | + + + + + Care Team Providers + +------+ + | Care Director [employer] Name | Role | Phone | + +------+ + | Rodolfo rCuz MD | PCP | | + +------+ + Encounter Details +--------+ + + + + | Date | Type | Department | Care Team | Description | +--------+ + + + + | 10/22/ | Hospital | [facility] | Rodolfo Cruz, | Thoracic sprain and | | 2013 | Encounter | MED CTR DIONE XRAY | [address] | strain, subsequent | | | | [address] [place] | [place], [place] | encounter | | | | [place], [place] | [address] | | | | | [address] | | | | | | [phone] | | | +--------+ + + + [...] [address] | | | | | | [place], | | | | | | [place] [address] | | | | | | [phone] | | | | | | | [...] + | MISCELLANEOUS LAB | | | [phone] | + +---------+ + + | MISCELANIOUS LAB | | | [phone] | + +---------+ + + documented in this encounter Visit Diagnoses + + | Diagnosis | + + | Thoracic sprain and strain, subsequent encounter | + + documented in this encounter"
--- OUTSIDE RECORDS SUMMARY | ~2019-05-18 | XMS | Encounter Summary ---
Demographics + + + | Address | [address] | | | [place] [address] | + + + | Home Phone [...] + | Author | [facility] | | | and [place] | + + + | Organization | [facility] | [...] [place] | | | | | [place] [address] | | + + + + + | Hunter Jackson | ECON | [place] | | + + + + + | Wes Jackson | ECON | [place], [place] | | + + + + + | Oziel Jackson | ECON | [place], [place] | | + + + + + Care Team Providers + +------+ + | Care Bench Chemist Name | Role | Phone | + [...] + + | 10/16/ | Telephone | [facility] | Irina Simms, | Other (plan of care) | | 2017 | | CARDIOLOGY [address] | [address] [place] | | | | | [place], | [place], | | | | | [place] [address] | [place] [address] | | | | | [phone] | [phone] | | | | | | | [...] STREETER | | | | | | [address] | | | | | | | | +--------+---------+ + + + | 11/21/ | Office | Cardiology | Yesi, | | | 2019 | Visit | | JOSE ALBERTO Linder [address] | | | | | | [place] | | | | | | [place] [address] | | | | | | [phone] | | | | | | | | +--------+---------+ + + + documented as of this encounter Visit Diagnoses Not on filedocumented in this encounter"
--- OUTSIDE RECORDS SUMMARY | ~2019-05-18 | XMS | Encounter Summary ---
Demographics + + + | Address | [address] | | | [place] [address] | + + + | Home Phone [...] Author | [facility] | | | and [place] | + + + | Organization | [facility] [...] | | | | | [place] [address] | | + + + + + | Hunter Jackson | ECON | [place] | | + + + + + | Wes Jackson | ECON | [place], [place] | | + + + + + | Oziel Jackson | ECON | [place], [place] | | + + + + + Care Team Providers + +------+ + | Care Microsoft Dynamics Developer Name | Role | Phone | [...] | [address] | | | | | [address] | | | | | | [phone] | | | +--------+--------+ + + + [...] | | | | | | [place] [address] | | | | | | [phone] | | | | | | | | +--------+---------+ + + + documented as of this encounter Visit Diagnoses Not on filedocumented in this encounter"
--- OUTSIDE RECORDS SUMMARY | ~2019-05-18 | XMS | Encounter Summary ---
Demographics + + + | Address | [address] | | | [place] [address] | + + + | Home Phone [...] Author | [facility] | | | and [place] | + + + | Organization | [facility] [...] [place] | | | | | [place] [address] | | + + + + + | Hunter Jackson | ECON | [place] | | + + + + + | Wes Jackson | ECON | [place], [place] | | + + + + + | Oziel Jackson | ECON | [place], [place] | | + + + + + Care Team Providers + +------+ + | Care Master Naval Parachutist Name | Role | Phone | + +------+ + | Kellie Gunderson | PCP | | + +------+ + Encounter Details +--------+ + + + + | Date | Type | Department | Care Team | Description | +--------+ + + + + | 07/02/ | Hospital | [facility] | [place], | Coronary artery | | 2018 | Encounter | MED CTR ULTRASOUND | JOSE ALBERTO Linder [address] | disease involving | | | | [address] [place] | [place], | n[place] coronary | | | | [place], [place] | [place] [address] | artery of nin[place]ik | | | | [address] | [phone] | heart with unstable | | | | [phone] | | angina pectoris | | | | | [place] | ([facility]) | | | | | M, Technologist [...] | | | | | | [place] [address] | | | | | | [phone] | | | | | | | [...] the | | | | PST | ninilchik coronary | results section. | | | | | artery of [place] | | | | | | heart [...] pressures of lower | | | extremities. [facility] Greater than 1.4: | | | [...] pressures of lower extremities. | | | |[facility] | |Greater than 1.4: Calcification/vessel hardening, [...] + + | Coronary artery disease involving nin[place]chik coronary artery of n[place] heart with unstable | | angina pectoris (HCC) | + + documented in this encounter"
--- OUTSIDE RECORDS SUMMARY | ~2019-05-18 | XMS | Encounter Summary ---
Demographics + + + | Address | [address] | | | [place] [address] | + + + | Home Phone [...] | [facility] | | | and [place] | + + + | Organization | [facility] | | [...] | | | | | [place] [address] | | + + + + + | Hunter Jackson | ECON | [place] | | + + + + + | Wes Jackson | ECON | [place], [place] | | + + + + + | Oziel Jackson | ECON | [place], [place] | | + + + + + Care Team Providers + +------+ + | Care Heel Finisher Name | Role | Phone | [...] + | 09/24/ | Telephone | [facility] | Rodolfo Cruz, | Therapy Daily | | 2012 | | MEDICINE [facility] | MD [address] | Treatment | | | | [place] | [place] [address] | | | | | [place] [address] | [address] | | | | | [phone] | | | +--------+ + + + [...] | | | | | | [place] [address] | | | | | | [phone] | | | | | | | | +--------+---------+ + + + documented as of this encounter Visit Diagnoses Not on filedocumented in this encounter"
--- OUTSIDE RECORDS SUMMARY | ~2019-05-18 | XMS | Encounter Summary ---
Demographics + + + | Address | [address] | | | [place] [address] | + + + | Home Phone [...] | Author | [facility] | | | and [place] | + + + | Organization | [facility] [...] [place] | | | | | [place] [address] | | + + + + + | Hunter Jackson | ECON | [place] | | + + + + + | Wes Jackson | ECON | [place], [place] | | + + + + + | Oziel Jackson | ECON | [place], [place] | | + + + + + Care Team Providers + +------+ + | Care Cdl Dedicated Truck Driver Name | Role | Phone [...] | pressure low, | | | | [place], | [place], | question about | | | | [place] [address] | [place] [address] | medications) | | | | [phone] | [phone] | | | | | | | [...] STREETER | | | | | | [phone] | | | | | | | | +--------+---------+ + + + | 11/21/ | Office | Cardiology | Yesi, | | | 2019 | Visit | | JOSE ALBERTO Linder [address] | | | | | [place], | | | | | | [place] [address] | | | | | | [phone] | | | | | | | | +--------+---------+ + + + documented as of this encounter Visit Diagnoses Not on filedocumented in this encounter"
--- OUTSIDE RECORDS SUMMARY | ~2019-05-18 | XMS | Encounter Summary ---
Demographics + + + | Address | [address] | | | [place] [address] | + + + | Home Phone [...] + | Author | [facility] | | | and Ohana | + + + | Organization | [facility] | | | [...] | | | | | [place] [address] | | + + + + + | Hunter Jackson | ECON | [place] | | + + + + + | Wes Jackson | ECON | [place], [place] | | + + + + + | Oziel Jackson | ECON | [place], [place] | | + + + + + Care Team Providers + +------+ + | Care Care Manager Cna Name | Role | Phone | + +------+ + | Rodolfo Cruz MD | PCP | | + +------+ + Reason for Visit + + + | Reason | Comments | + + + | Labs Only | [facility] called to [facility] in [place] | + + + Encounter Details +--------+ [...] in | | | | [place] [address] | [address] | Mika) | | | | [phone] | | | +--------+ + + + [...] STREETER | | | | | | [address] | | | | | | | | +--------+---------+ + + + | 11/21/ | Office | Cardiology | Yesi, | | | 2019 | Visit | | JOSE ALBERTO Linder [address] | | | | | | [place], | | | | | | [place] [address] | | | | | | [phone] | | | | | | | | +--------+---------+ + + + documented as of this encounter Visit Diagnoses Not on filedocumented in this encounter"
--- OUTSIDE RECORDS SUMMARY | ~2019-05-18 | XMS | Encounter Summary ---
Demographics + + + | Address | [address] | | | [place] [address] | + + + | Home Phone [...] [facility] | | | and Ohana | + + + | Organization | [facility] | | [...] | | | | | [place] [address] | | + + + + + | Hunter Jackson | ECON | [place] | | + + + + + | Wes Jackson | ECON | [place], [place] | | + + + + + | Oziel Jackson | ECON | [place], [place] | | + + + + + Care Team Providers + +------+ + | Care Managing Member Name | Role | Phone | [...] Pulmonary | Rodolfo Reilly MD | [address] | | | | | nodules | [address] | [facility], | | | | | Procedures | [address] [place] | [place] [address] | | | | | CT Chest w | [place], [place] | Phone: | | | | | Contrast | [address] | [phone] | | | | | | Phone: | Fax: | | | | | | [phone] | [phone] | | | | | | Fax: | | | | | | | [phone] | | +--------+--------+ + + + + [...] + + | 03/03/ | Office | [facility] | Rodolfo Cruz, | Thoracic back pain | | 2013 | Visit | MEDICINE [facility] | MD [address] | (Primary Dx); | | | | [address] [place] | [place] [address] | Pulmonary nodules; | | | | [place] [address] | [address] | Anemia; 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 Multiplanar reformatted images created.RADIATION DOSE: DLP [...] [address] | [place] | [phone] | | [facility] | | [address] | | | - IMAGING | | [...]
--- OUTSIDE RECORDS SUMMARY | ~2019-05-18 | XMS | Encounter Summary ---
Demographics + + + | Address | [address] | | | [place] [address] | + + + | Home Phone [...] | Author | [facility] | | | and [place] | + + + | Organization | [facility] [...] | | | | | [place] [address] | | + + + + + | Hunter Jackson | ECON | [place] | | + + + + + | Wes Jackson | ECON | [place], [place] | | + + + + + | Oziel Jackson | ECON | [place], [place] | | + + + + + Care Team Providers + +------+ + | Care Beef Ribber Name | Role | Phone | + [...] | | | | | [place] [address] | [address] | | | | | [phone] | | | +--------+--------+ + + + [...] STREETER | | | | | | [address] | | | | | | | | +--------+---------+ + + + | 11/21/ | Office | Cardiology | Yesi, | | | 2019 | Visit | | JOSE ALBERTO Linder [address] | | | | | | [place] | | | | | | [place] [address] | | | | | | [phone] | | | | | | | | +--------+---------+ + + + documented as of this encounter Visit Diagnoses + + | Diagnosis | + + | Pain - Primary Generalized pain | + + documented in this encounter"
--- OUTSIDE RECORDS SUMMARY | ~2019-05-18 | XMS | Encounter Summary ---
Demographics + + + | Address | [address] | | | [place] [address] | + + + | Home Phone [...] | Author | [facility] | | | and [place] | + + + | Organization | [facility] | [...] [place] | | | | | [place] [address] | | + + + + + | Hunter Jackson | ECON | [place] | | + + + + + | Wes Jackson | ECON | [place], [place] | | + + + + + | Oziel Jackson | ECON | [place], [place] | | + + + + + Care Team Providers + +------+ + | Care Head Loader Name | Role | Phone | [...] + + | 10/21/ | Office | [facility] | Ulysses Jensen, | Complete tear of | | 2017 | Visit | ORTHOPEDIC SURGERY | [address] | right rotator cuff | | | | [address] [facility] | [place] [address] | (Primary Dx) | | | | [place] | [address] | | | | | [address] | | | | | | [phone] | | | +--------+---------+ + + + [...] is scheduled to undergo CAB G at [place] next week She kept this appointment just [...] STREETER | | | | | | [address] | | | | | | | | +--------+---------+ + + + | 11/21/ | Office | Cardiology | Yesi, | | | 2019 | Visit | | JOSE ALBERTO Linder [address] | | | | | | [place], | | | | | | [place] [address] | | | | | | [phone] | | | | | | | | +--------+---------+ + + + documented as of this encounter Visit Diagnoses + + | Diagnosis | + + | Complete tear of right rotator cuff - Primary | + + documented in this encounter
--- OUTSIDE RECORDS SUMMARY | ~2019-05-18 | XMS | Encounter Summary ---
Demographics + + + | Address | [address] | | | [place] [address] | + + + | Home Phone [...] | [facility] | | | and [place]ana | + + + | Organization | [facility] | | [...] | | | | | [place] [address] | | + + + + + | Hunter Jackson | ECON | [place] | | + + + + + | Wes Jackson | ECON | [place], [place] | | + + + + + | Oziel Jackson | ECON | [place], [place] | | + + + + + Care Team Providers + +------+ + | Care Manager System Name | Role | Phone | + [...] + + | 03/31/ | Telephone | [facility] | Rodolfo Cruz, | Results | | 2014 | | MEDICINE [facility] | MD [address] | | | | | [place] | [place] [address] | | | | | [place] [address] | [address] | | | | | [phone] | | | +--------+ + + + [...] | Visit | | JOSE ALBERTO Lidner | | | | | | [place] | | | | | | [place] [address] | | | | | | [phone] | | | | | | | | +--------+---------+ + + + documented as of this encounter Visit Diagnoses Not on filedocumented in this encounter"
--- OUTSIDE RECORDS SUMMARY | ~2019-05-18 | XMS | Encounter Summary ---
Demographics + + + | Address | [address] | | | [place] [address] | + + + | Home Phone [...] [facility] | | | and [place] | + + + | Organization | [facility] [...] | | | | | [place] [address] | | + + + + + | Hunter Jackson | ECON | [place] | | + + + + + | Wes Jackson | ECON | [place], [place] | | + + + + + | Oziel Jackson | ECON | [place], [place] | | + + + + + Care Team Providers + +------+ + | Care Major Assembly Lineman Name | Role | Phone | + [...] | | | | | | [place] | [facility] | | | | | | [address] | [place] | | | | | | Phone: | [address] Phone: | | | | | | [phone] | [phone] | | | | | | Fax: | Fax: | | | | | | [phone] | [phone] | +--------+ + + + + + [...] + + | 07/07/ | Office | [facility] | Rodolfo Cruz, | Hyperproteinemia | | 2015 | Visit | MEDICINE [address] [place] [address] | MD [address] | (Primary Dx); Pain; | | | | [address] [place] | [place], [place] | Hypothyroidism | | | | [place] [address] | [address] | | | | | [phone] | | | +--------+---------+ + + + [...] 06/05/2010 and no changes required: Born in [facility] since 1965 Marital status: Children: 6, 5 living, 10 grandchildren 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 Hyperproteinemia * [facility] - AMB Referral [...] W | | | | | | [address] [place], | | | | | | [place] [address] | | | | | | [phone] | | | | | | | [...] + | [address] | [address] | [place] | [phone] | | [facility] | | [address] | | | - LABORATORY | | [...] + + | Performing | Address | City[facility] | Phone Number | | Organization | | | | + + + + + | [address] | [address] | [place], [place] | [phone] | | [facility] | | [address] | | | - IMAGING | | [...] to upper thoracic spine, similar to | [facility] | | the CT from 02/22/2014. [...] ST. | [address] | [place], [place] | [phone] | | [facility] | | [address] | | | - IMAGING | | [...]
--- OUTSIDE RECORDS SUMMARY | ~2019-05-18 | XMS | Encounter Summary ---
Demographics + + + | Address | [address] | | | [place] [address] | + + + | Home Phone [...] | | | | | [place] [address] | | + + + + + | Hunter Jackson | ECON | [place] | | + + + + + | Wes Jackson | ECON | [place], [place] | | + + + + + | Oziel Jackson | ECON | [place], [place] | | + + + + + Care Team Providers + +------+ + | Care Cotton Chopper Name | Role | Phone | + [...] pain (Primary Dx); | | | | [place], | [address], | DDD (degenerative | | | | [place] [address] | [place] [address] | disc disease), | | | | [phone] | [phone] | lumbar; Facet | | | | [...] not feel pain. You must have a delivery driver/supervisor to get home from the hospital. You [...] has no apparent deficits with short or skilled nursing memory. 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 Unfortunately she cont inues to have significant [...] STREETER | | | | | | [address] | | | | | | | | +--------+---------+ + + + | 11/21/ | Office | Cardiology | Yesi, | | | 2019 | Visit | | JOSE ALBERTO Linder [address] | | | | | | [place], | | | | | | [place] [address] | | | | | | [phone] | | | | | | | [...] 723.1 Soumya Jackson presents to the | [facility] | | fluoroscopy suite for fluoroscopically guided bilateral L4 medial [facility] | | branch blocks and [...] + + | Performing | Address | City/State/[facility] | Phone Number | | Organization | | | | + + + + + | [address] | [address] | [place] | [phone] | | [facility] | | [address] | | | - IMAGING | | [...]
--- OUTSIDE RECORDS SUMMARY | ~2019-05-18 | XMS | Encounter Summary ---
Demographics + + + | Address | [address] | | | [place] [address] | + + + | Home Phone [...] + | Author | [facility] | | | and [place]ana | + + + | Organization | [facility] | | | [...] | | | | | [place] [address] | | + + + + + | Hunter Jackson | ECON | [place] | | + + + + + | Wes Jackson | ECON | [place], [place] | | + + + + + | Oziel Jackson | ECON | [place], [place] | | + + + + [...] | [address] | | | | | [address] | | | | | | [phone] | | | +--------+--------+ + + + [...] | | | | | | [place] [address] | | | | | | [phone] | | | | | | | | +--------+---------+ + + + documented as of this encounter Visit Diagnoses Not on filedocumented in this encounter"
--- OUTSIDE RECORDS SUMMARY | ~2019-05-18 | XMS | Encounter Summary ---
Demographics + + + | Address | [address] | | | [place] [address] | + + + | Home Phone [...] Author | [facility] | | | and [place] | + + + | Organization | [facility] [...] | | | | | [place] [address] | | + + + + + | Hunter Jackson | ECON | [place] | | + + + + + | Wes Jackson | ECON | [place], [place] | | + + + + + | Oziel Jackson | ECON | [place], [place] | | + + + + + Care Team Providers + +------+ + | Care Supervisor Core Shop Name | Role | Phone | + [...] | 12/11/ | Refill | [facility] | Rodolfo Cruz, | Medication Refill | | 2016 | | MEDICINE [address] | [address] | | | | | [place] | [place] [address] | | | | | [place] [address] | [address] | | | | | [phone] | | | +--------+--------+ + + + [...] | | | | | | [place] [address] | | | | | | [phone] | | | | | | | | +--------+---------+ + + + documented as of this encounter Visit Diagnoses Not on filedocumented in this encounter"
--- OUTSIDE RECORDS SUMMARY | ~2019-05-18 | XMS | Encounter Summary ---
Demographics + + + | Address | [address] | | | [place] [address] | + + + | Home Phone [...] [facility] | | | and [place] | + + + | Organization | [facility] | [...] | | | | | [place] [address] | | + + + + + | Hunter Jackson | ECON | [place] | | + + + + + | Wes Jackson | ECON | [place], [place] | | + + + + + | Oziel Jackson | ECON | [place], [place] | | + + + + + Care Team Providers + +------+ + | Care Wildland Firefighter Name | Role | Phone | + [...] + + | 09/15/ | Emergency | [facility] | Stanislav Michele, | Thoracic sprain and | | 2013 | | MED CTR EMERGENCY | [address] | beto, initial | | | | CENTER [address] | [place] [address] | encounter (Primary | | | | [place] | [address] | Dx) | | | | [address] | | | | | | [phone] | | | +--------+ + + + [...] cannot be sent through Care Everywhere.THORACIC STRAIN (TRISTANIAN)documented in this encounter Medications at Time of [...] STREETER | | | | | | [address] | | | | | | | | +--------+---------+ + + + | 11/21/ | Office | Cardiology | Yesi, | | | 2019 | Visit | | JOSE ALBERTO Linder [address] | | | | | | [place], | | | | | | [place] [address] | | | | | | [phone] | | | | | | | [...] + | MISCELLANEOUS LAB | | | [phone] | + +---------+ + + | MISCELANIOUS LAB | | | [phone] | + +---------+ + + documented in this encounter Visit Diagnoses + + | Diagnosis | + + | Thoracic sprain and strain, initial encounter - Primary | + + documented in this encounter
--- OUTSIDE RECORDS SUMMARY | ~2019-05-18 | XMS | Encounter Summary ---
Demographics + + + | Address | [address] | | | [place] [address] | + + + | Home Phone [...] | Author | [facility] | | | and [place] | + + + | Organization | [facility] | [...] | | | | | [place] [address] | | + + + + + | Hunter Jackson | ECON | [place] | | + + + + + | Wes Jackson | ECON | [place], [place] | | + + + + + | Oziel Jackson | ECON | [place], [place] | | + + + + + Care Team Providers + +------+ + | Care Heat Treatment Technician Name | Role | Phone | [...] | [address] | | | | | [address] | | | | | | [phone] | | | +--------+--------+ + + + [...] [place] | | | | | | [place] [address] | | | | | | [address] | | | | | | | | +--------+---------+ + + + | 11/21/ | Office | Cardiology | Yesi, | | | 2019 | Visit | | JOSE ALBERTO Linder [address] | | | | | | [place] | | | | | | [place] [address] | | | | | | [phone] | | | | | | | | +--------+---------+ + + + documented as of this encounter Visit Diagnoses Not on filedocumented in this encounter"
--- OUTSIDE RECORDS SUMMARY | ~2019-05-18 | XMS | Encounter Summary ---
Demographics + + + | Address | [address] | | | [place] [address] | + + + | Home Phone [...] | [facility] | | | and [place] | + + + | Organization | [facility] | | [...] | | | | | [place] [address] | | + + + + + | Hunter Jackson | ECON | [place] | | + + + + + | Wes Jackson | ECON | [place], [place] | | + + + + + | Oziel Jackson | ECON | [place], [place] | | + + + + + Care Team Providers + +------+ + | Care Napper Runner Name | Role | Phone | + +------+ + | Rodolfo Cruz MD | PCP | | + +------+ + Encounter Details +--------+ + + + + | Date | Type | Department | Care Team | Description | +--------+ + + + + | 09/25/ | Hospital | [facility] | Rodolfo Cruz, | Essential | | 2016 | Encounter | MED CTR LABORATORY | MD [address] | hypertension; | | | | [address] [place] | [place], [place] | Hyperlipidemia; | | | | [place], [place] | [address] | Pre-procedure lab | | | | [address] | | exam; Other | | | | [phone] | | specified | | | | [...] + + + +---------+ + + | [place]ie[place] 3 1000 MG | Take by mouth. [...] [place] | | | | | | [address] | | | | | | | | +--------+---------+ + + + | 11/21/ | Office | Cardiology | Yesi, | | | 2019 | Visit | | JOSE ALBERTO Linder [address] | | | | | | [place], | | | | | | [place] [address] | | | | | | [phone] | | | | | | | [...] + | [address] | [address] | [place] | [phone] | | [facility] | | [address] | | | - LABORATORY | | [...] | | MEDICAL | | | | mL/min/[id number] than | | CENTER - | | [...] + + + + + + | Albumin/Sarha | 1.0 | 0.8 - 2.0 | [...] + | [address] | [address] | [place] | [phone] | | [facility] | | [address] | | | - LABORATORY | | [...] | | Lymphocytes | | | [facility] | | [...] + | [facility] | [address] | [place] | [phone] | | [facility] | | [address] | | | - LABORATORY | | [address] | [place] | [phone] | | [facility] | | [address] | | | - LABORATORY | | [...]
--- OUTSIDE RECORDS SUMMARY | ~2019-05-18 | XMS | Encounter Summary ---
Demographics + + + | Address | [address] | | | [place] [address] | + + + | Home Phone [...] | Author | [facility] | | | and [place] | + + + | Organization | [facility] [...] | | | | | [place] [address] | | + + + + + | Hunter Jackson | ECON | [place] | | + + + + + | Wes Jackson | ECON | [place], [place] | | + + + + + | Oziel Jackson | ECON | [place], [place] | | + + + + + Care Team Providers + +------+ + | Care Petroleum Terminal Plant Operator Name | Role | Phone | + +------+ + | Rodolfo Cruz MD | PCP | | + +------+ + Encounter Details +--------+ + + + + | Date | Type | Department | Care Team | Description | +--------+ + + + + | 01/03/ | Hospital | [facility] | Rodolfo Cruz, | Urticaria, chronic | | 2016 | Encounter | MED CTR LABORATORY | MD [address] | | | | | [address] [place] | [place], [place] | | | | | [place] | [address] | | | | | [address] | | | | | | [phone] | | | +--------+ + + + [...] + + + +---------+ + + | [place] 3 1000 MG | Take by mouth. [...] [place] | | | | | | [address] | | | | | | | | +--------+---------+ + + + | 11/21/ | Office | Cardiology | Yesi, | | | 2019 | Visit | | JOSE ALBERTO Linder [address] | | | | | | [place] | | | | | | [place] [address] | | | | | | [phone] | | | | | | | [...] [address] | [place] | [phone] | | [facility] | | [address] | | | - LABORATORY | | [...] [place] | | | | | | [address] | | | | + + + [...] [address] | [place] [address] | [phone] | + + + + + DNA [...] | | | | | [place] [address] | | | | + + + [...] [address] | [place] [address] | [phone] | + + + + + CBC [...] [address] | [place] | [phone] | | [facility] | | [address] | | | - LABORATORY | | | | + + + + + documented in this encounter Visit Diagnoses + + | Diagnosis | + + | Urticaria, chronic Other specified urticaria | + + documented in this encounter"
--- OUTSIDE RECORDS SUMMARY | ~2019-05-18 | XMS | Encounter Summary ---
Demographics + + + | Address | [address] | | | [place] [address] | + + + | Home Phone [...] + | Author | [facility] | | | and [place] | + + + | Organization | [facility] | | | and hOana | + + + | Address | Unknown | + + + | Phone | Unavailable | + + + Support + + + + + | Name | Relationship | Address | Phone | + + + + + | Osmin Jackson | ECON | [address] | | | | | [place] [address] | | + + + + + | Hunter Jackson | ECON | [place] | | + + + + + | Wes Jackson | ECON | [place], [place] | | + + + + + | Oziel Jackson | ECON | [place], [place] | | + + + + + Care Team Providers + +------+ + | Care Diagnostic Imaging Manager Name | Role | Phone | [...] + + | 10/27/ | Telephone | [facility] | Rodolfo Cruz, | Results | | 2013 | | MEDICINE [facility] | [address] | | | | | [place] | [place] [address] | | | | | [place] [address] | [address] | | | | | [phone] | | | +--------+ + + + [...] STREETER | | | | | | [address] | | | | | | | | +--------+---------+ + + + | 11/21/ | Office | Cardiology | Yesi, | | | 2019 | Visit | | JOSE ALBERTO Linder [address] | | | | | | [place], | | | | | | [place] [address] | | | | | | [phone] | | | | | | | | +--------+---------+ + + + documented as of this encounter Visit Diagnoses Not on filedocumented in this encounter"
--- OUTSIDE RECORDS SUMMARY | ~2019-05-18 | XMS | Encounter Summary ---
Demographics + + + | Address | [address] | | | [place] [address] | + + + | Home Phone [...] Author | [facility] | | | and [place] | + + + | Organization | [facility] [...] SWA[place] | | | | | [place] [address] | | + + + + + | Hunter Jackson | ECON | [place] | | + + + + + | Wes Jackson | ECON | [place], [place] | | + + + + + | Oziel Jackson | ECON | [place], [place] | | + + + + + Care Team Providers + +------+ + | Care Hand Stoner Name | Role | Phone | + [...] | | atherosclero | | [address] | | | | | sis of | | [place], | | | | | unspecified | | [place] [address] | | | | | type of | | Phone: | | | | | vessel, | | [phone] | | | | | [place] or | | Fax: | | | | | graft | | [phone] | | | | | Coronary | | | | | | | atherosclero | | | | | | | sis of | | | | | | | unspecified | | | | | | | type of | | | | | | | vessel, | | | | | | | [place] or | | | | | | | graft | | | | | | | Procedures | | | | | | | LA ENDOSCOPY | | | | | | | | | | | | | | W/VIDEO-ASST | | | | | | | VEIN | | | | | | | HARVEST,CABG | | | | | | | LA CABG, | | | | | | | ARTERY-VEIN, | | | | | | | FOUR LA | | | | | | | CABG, | | | | | | | ARTERIAL, | | | | | | | SINGLE | | | +--------+--------+ + + + + Encounter Details +--------+ + + + + | Date | Type | Department | Care Team | Description | +--------+ + + + + | 10/31/ | Preadmit | OLGEARIO MIRANDA | Eze, | | | 2017 | Visit | [facility] | MD Christina [address] [place] [address] | | | | | [facility] [address] [place] | | | | | [address] [place] [address] | [id number] | | | | | [place] | | | | | | [address] | | | | | | [phone] | | | +--------+ + + + [...] STREETER | | | | | | [address] | | | | | | | | +--------+---------+ + + + | 11/21/ | Office | Cardiology | Yesi, | | | 2019 | Visit | | JOSE ALBERTO Linder [address] | | | | | | [place] | | | | | | [place] [address] | | | | | | [phone] | | | | | | | | +--------+---------+ + + + documented as of this encounter Visit Diagnoses Not on filedocumented in this encounter"
--- OUTSIDE RECORDS SUMMARY | ~2019-05-18 | XMS | Encounter Summary ---
Demographics + + + | Address | [address] | | | [place] [address] | + + + | Home Phone [...] Author | [facility] | | | and [place] | + + + | Organization | [facility] [...] | | | | | [place] [address] | | + + + + + | Hunter Jackson | ECON | [place] | | + + + + + | Wes Jackson | ECON | [place], [place] | | + + + + + | Oziel Jackson | ECON | [place], [place] | | + + + + + Care Team Providers + +------+ + | Care Spd Manager Name | Role | Phone | + +------+ + | Rodolfo Cruz MD | PCP | | + +------+ + Encounter Details +--------+ + + + + | Date | Type | Department | Care Team | Description | +--------+ + + + + | 11/02/ | Orders Only | [facility] | Buffy Cormier, | Other specified | | 2014 | | MEDICINE Danny Hinson | CB | facundo | | | | [place] | | (Primary Dx) | | | | [place] [address] | | | | | | [phone] | | | +--------+ + + + [...] W | | | | | | [place], | | | | | | [place] [address] | | | | | | [phone] | | | | | | | [...] [address] | [place] | [phone] | | [facility] | | [address] | | | - LABORATORY | | | | + + + + + documented in this encounter Visit Diagnoses + + | Diagnosis | + + | Other specified hypothyroidism - Primary | + + documented in this encounter"
--- OUTSIDE RECORDS SUMMARY | ~2019-05-18 | XMS | Encounter Summary ---
Demographics + + + | Address | [address] | | | [place] [address] | + + + | Home Phone [...] | Author | [facility] | | | and [place] | + + + | Organization | [facility] | [...] | | | | | [place] [address] | | + + + + + | Hunter Jackson | ECON | [place] | | + + + + + | Wes Jackson | ECON | [place], [place] | | + + + + + | Oziel Jackson | ECON | [place], [place] | | + + + + + Care Team Providers + +------+ + | Care Obstetrics Scrub Nurse Name | Role | Phone | [...] | 02/11/ | Refill | [facility] | Rodolfo Cruz, | Medication Refill | | 2016 | | MEDICINE [address] | MD [address] | | | | | [place] | [place] [address] | | | | | [place] [address] | [address] | | | | | [phone] | | | +--------+--------+ + + + [...] | | | | | | [place] [address] | | | | | | [phone] | | | | | | | | +--------+---------+ + + + documented as of this encounter Visit Diagnoses Not on filedocumented in this encounter"
--- OUTSIDE RECORDS SUMMARY | ~2019-05-18 | XMS | Encounter Summary ---
Demographics + + + | Address | [address] | | | [place] [address] | + + + | Home Phone [...] | [facility] | | | and [place] | + + + | Organization | [facility] [...] | | | | | [place] [address] | | + + + + + | Hunter Jackson | ECON | [place] | | + + + + + | Wes Jackson | ECON | [place], [place] | | + + + + + | Oziel Jackson | ECON | [place], [place] | | + + + + + Care Team Providers + +------+ + | Care Staffing Coordinator Name | Role | Phone | [...] pain (Primary Dx); | | | | Ranier [place], | [facility], | Facet arthritis [place] | | | | [place] [address] | [place] [address] | lumbar region | | | | [phone] | [phone] | | | | | | | [...] | | | | | | [place] [address] | | | | | | [phone] | | | | | | | | +--------+---------+ + + + documented as of this encounter Visit Diagnoses + + | Diagnosis | + + | Chronic low back pain - Primary Lumbago | + + | Facet arthritis of lumbar region Lumbosacral spondylosis without myelopathy | + + documented in this encounter"
--- OUTSIDE RECORDS SUMMARY | ~2019-05-18 | XMS | Encounter Summary ---
Demographics + + + | Address | [address] | | | [place] [address] | + + + | Home Phone [...] + | Author | [facility] | | | and [place] | + + + | Organization | [facility] | | [...] | | | | | [place] [address] | | + + + + + | Hunter Jackson | ECON | [place] | | + + + + + | Wes Jackson | ECON | [place], [place] | | + + + + + | Oziel Jackson | ECON | [place], [place] | | + + + + + Care Team Providers + +------+ + | Care Shim Plug Cutter Name | Role | Phone | [...] + + | 02/09/ | Office | [facility] | Ulysses Jensen, | Rotator cuff | | 2013 | Visit | ORTHOPEDIC SURGERY | MD Danny PARHAM | syndrome of right | | | | [address] | [place] [address] | shoulder (Primary | | | | [place] | [address] | Dx); [facility] arthritis | | | | [address] | | | | | | [phone] | | | +--------+---------+ + + + [...] STREETER | | | | | | [address] | | | | | | | | +--------+---------+ + + + | 11/21/ | Office | Cardiology | [place], | | | 2020 | Visit | | JOSE ALBERTO [address]inder [address] | | | | | | [place], | | | | | | [place] [address] | | | | | | [phone] | | | | | | | [...]
--- OUTSIDE RECORDS SUMMARY | ~2019-05-18 | XMS | Encounter Summary ---
Demographics + + + | Address | [address] | | | [place] [address] | + + + | Home Phone [...] | [facility] | | | and [place] | + + + | Organization | [facility] | [...] | | | | | [place] [address] | | + + + + + | Hunter Jackson | ECON | [place] | | + + + + + | Wes Jackson | ECON | [place], [place] | | + + + + + | Oziel Jackson | ECON | [place], [place] | | + + + + [...] | Lumbosacral | Bal, | [address] | | | | | spondylosis | Harsha Moreno MD | [place], | | | | | without | [address] | [place] | | | | | myelopathy | [facility] | [address] | | | | | Procedures | [place] | Phone: | | | | | [place] INJ | [address] | [phone] | | | | | DX/THER AGNT | Phone: | Fax: | | | | | PAR[place]ERT | [phone] | [phone] | | | | | FACET JOINT, | Fax: | | | | | | LUMBAR/SAC, | [phone] | | | | | | 1ST LEVEL | | | | | | | [place] INJ | | | | | | [...] + + | 03/06/ | Hospital | [facility] | Harsha Selby | Chronic low back | | 2014 | Encounter | MED CTR XRAY [address] | T, [address] | pain; Facet | | | | [address] [place] | [place] | arthritis of lumbar | | | | [place] [address] | [address] | region; DDD | | | | [phone] | | (degenerative disc | | | | | Marzipan Maker, [place] | disease), lumbar | +--------+ + [...] STREETER | | | | | | [address] | | | | | | | | +--------+---------+ + + + | 11/21/ | Office | Cardiology | Yesi, | | | 2019 | Visit | | JOSE ALBERTO [address]inder [address] | | | | | | [address], | | | | | | [place] [address] | | | | | | [phone] | | | | | | | [...] 723.1 Soumya Jackson presents to the | [facility] | | fluoroscopy suite for fluoroscopically guided bilateral L3 and | [facility] | | bilateral L4 medial branch [...] + | [facility] | [address] | [place], [place] | [phone] | | [facility] | | [address] | | | - IMAGING | | [...]
--- OUTSIDE RECORDS SUMMARY | ~2019-05-18 | XMS | Encounter Summary ---
Demographics + + + | Address | [address] | | | [place] [address] | + + + | Home Phone [...] Author | [facility] | | | and [place] | + + + | Organization | [facility] | [...] | | | | | [place] [address] | | + + + + + | Hunter Jackson | ECON | [place] | | + + + + + | Wes Jackson | ECON | [place], [place] | | + + + + + | Oziel Jackson | ECON | [place], [place] | | + + + + + Care Team Providers + +------+ + | Care Finished Cigar Maker Name | Role | Phone | [...] | [address] | [address] | | | | | xray | [address] [place] | [place], | | | | | Procedures | [place] | [place] | | | | | [place] Bone Scan | [address] | [address] | | | | | Whole Body | Phone: | Phone: | | | | | | [phone] | [phone] | | | | | | Fax: | Fax: | | | | | | [phone] | [phone] | +--------+--------+ + + + + Encounter Details +--------+ + + + + | Date | Type | Department | Care Team | Description | +--------+ + + + + | 10/27/ | Orders Only | [facility] [place] [facility] | Rodolfo Cruz, | Lytic bone lesions | | 2013 | | MEDICINE [facility] D[facility] | MD [address] | on xray (Primary Dx) | | | | [facility] | [place] | | | | | [facility] [place] [address] | [address] | | | | | [phone] | | | +--------+ + + + [...] [place] | | | | | | [address] | | | | | | | | +--------+---------+ + + + | 11/21/ | Office | Cardiology | Yesi, | | | 2019 | Visit | | JOSE ALBERTO [address]inder [address] | | | | | | [place], | | | | | | [place] [address] | | | | | | [phone] | | | | | | | [...]
--- OUTSIDE RECORDS SUMMARY | ~2019-05-18 | XMS | Encounter Summary ---
Demographics + + + | Address | [address] | | | [place] [address] | + + + | Home Phone [...] + | Author | [facility] | | | and [place] | + + + | Organization | [facility] [...] | | | | | [place] [address] | | + + + + + | Gisele Jackson | ECON | [place] | | + + + + + | Wes Jackson | ECON | [place], [place] | | + + + + + | Oziel Jackson | ECON | [place], [place] | | + + + + + Care Team Providers + +------+ + | Care Bonbon Cream Warmer Name | Role | Phone | + [...] | | sprain and | [address] [facility] | HOSPITAL | | | | | strain, | AVE [place] | [address] | | | | | initial | [place] | AVE | | | | | encounter | [address] | [place] | | | | | | Phone: | [address] | | | | | | [phone] | Phone: | | | | | | Fax: | [phone] | | | | | | [phone] | | +--------+ + + + + + Reason for Visit + + + | Reason | Comments | + + + | ED Follow-up | | + + + Encounter Details +--------+---------+ + + + | Date | Type | Department | Care Team | Description | +--------+---------+ + + + | 09/27/ | Office | [facility] | Rodolfo Cruz, | Thoracic sprain and | | 2013 | Visit | MEDICINE [address] [place] [address] | [address] | strain, initial | | | | Street [place] | [place] | encounter (Primary | | | | [place] [address] | [address] | Dx) | | | | [phone] | | | +--------+---------+ + + + [...] [place] | | | | | | [address] | | | | | | | | +--------+---------+ + + + | 11/21/ | Office | Cardiology | Yesi, | | | 2019 | Visit | | JOSE ALBERTO [address] | | | | | | [place], | | | | | | [place] [address] | | | | | | [phone] | | | | | | | | +--------+---------+ + + + + + +--------+ + + | Name | Type | Priori | Associated Diagnoses | Order Schedule | | | | ty | | | + + +--------+ + + | [place] | Outpatient | Routin | Thoracic sprain [...]
--- OUTSIDE RECORDS SUMMARY | ~2019-05-18 | XMS | Encounter Summary ---
Demographics + + + | Address | [address] | | | [place] [address] | + + + | Home Phone [...] Author | [facility] | | | and [place] | + + + | Organization | [facility] | | | [...] [place] | | | | | [place] [address] | | + + + + + | Hunter Jackson | ECON | [place] | | + + + + + | Wes Jackson | ECON | [place], [place] | | + + + + + | Oziel Jackson | ECON | [place], [place] | | + + + + + Care Team Providers + +------+ + | Care Design Engineer Name | Role | Phone | + +------+ + | Kellie Gunderson | PCP | | + +------+ + Encounter Details +--------+ + + + + | Date | Type | Department | Care Team | Description | +--------+ + + + + | 09/25/ | Abstract | [facility] | Irina Simms, | | | 2016 | | CARDIOLOGY [address] | MD [address] [place] | | | | | [place], | [place], | | | | | [place] [address] | [place] [address] | | | | | [phone] | [phone] | | | | | | | [...] STREETER | | | | | | [address] | | | | | | | | +--------+---------+ + + + | 11/21/ | Office | Cardiology | Yesi, | | | 2019 | Visit | | JOSE ALBERTO [address]inder [address] | | | | | | [place], | | | | | | [place] [address] | | | | | | [phone] | | | | | | | [...]
--- OUTSIDE RECORDS SUMMARY | ~2019-05-18 | XMS | Encounter Summary ---
Demographics + + + | Address | [address] | | | [place] [address] | + + + | Home Phone [...] | Author | [facility] | | | and [place] | + + + | Organization | [facility] | | [...] [place] | | | | | [place] [address] | | + + + + + | Hunter Jackson | ECON | [place] | | + + + + + | Wes Jackson | ECON | [place], [place] | | + + + + + | Oziel Jackson | ECON | [place], [place] | | + + + + + Care Team Providers + +------+ + | Care Hospital Director Name | Role | Phone | [...] Medicine | Sleep | Braulio Daniel | [place] [address] | | | Required | | apnea, | MD [address] | [place] | | | | | unspecified | [place] | [place], | | | | | Paradoxical | [facility] | [place] [address] | | | | | insomnia | [place], [place] | Phone: | | | | | Procedures | [address] | [phone] | | | | | [place] POLYSOM | Phone: | Fax: | | | | | 6/>YRS SLEEP | [phone] | [phone] | | | | | 4/> ADDL | Fax: | | | | | | JACQUELYN ATTND | [phone] | | | | | | [place] POLYSOM | | | | | | [...] + | 07/22/ | Office | [facility] | Braulio León | 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 [address] | MD [address] | (Primary Dx); Sleep | | | | [address] [place] | [address] [place] | disorder due to a | | | | [place] [address] | [place] [address] | general medical | | | | [phone] | [phone] | condition, insomnia | | | | [...] STREETER | | | | | | [address] | | | | | | | | +--------+---------+ + + + | 11/21/ | Office | Cardiology | Yesi, | | | 2019 | Visit | | JOSE ALBERTO [address] | | | | | | [place] | | | | | | [place] [address] | | | | | | [phone] | | | | | | | | +--------+---------+ + + + + + +--------+ + + | Name | Type | Priori | Associated Diagnoses | Order Schedule | | | | ty | | | + + +--------+ + + | * [facility] - | Outpatient | [...]
--- OUTSIDE RECORDS SUMMARY | ~2019-05-18 | XMS | Encounter Summary ---
Demographics + + + | Address | [address] | | | [place] [address] | + + + | Home Phone [...] Author | [facility] | | | and [place] | + + + | Organization | [facility] [...] | | | | | [place] [address] | | + + + + + | Hunter Jackson | ECON | [place] | | + + + + + | Wes Jackson | ECON | [place], [place] | | + + + + + | Oziel Jackson | ECON | [place], [place] | | + + + + + Care Team Providers + +------+ + | Care Field Marketing Director Name | Role | Phone | [...] Pulmonary | Rodolfo Reilly MD | [address] | | | | | nodules | [address] | [place], | | | | | Procedures | AVE [place] | [place] [address] | | | | | CT Chest w | [place], [place] | Phone: | | | | | Contrast | [address] | [phone] | | | | | | Phone: | Fax: | | | | | | [phone] | [phone] | | | | | | Fax: | | | | | | | [phone] | | +--------+--------+ + + + + [...] + + | 03/03/ | Office | [facility] | Rodolfo Cruz, | Thoracic back pain | | 2013 | Visit | MEDICINE [facility] [address] | MD [address] | (Primary Dx); | | | | Street [place] | [place] [address] | Pulmonary nodules; | | | | [place] [address] | [address] | Anemia; 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 | +--------+---------+ + + [...] 06/05/2010 and no changes required: Born in [facility] since 1965 Marital status: Children: 6, 5 living, 10 grandchildren 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 Multiplanar reformatted images created.RADIATION DOSE: DLP [...] [address] | [place] | [phone] | | [facility] | | [address] | | | - IMAGING | | [...]
--- OUTSIDE RECORDS SUMMARY | ~2019-05-18 | XMS | Encounter Summary ---
Demographics + + + | Address | [address] | | | [place] [address] | + + + | Home Phone [...] | Author | [facility] | | | and [place] | + + + | Organization | [facility] | [...] [place] | | | | | [place] [address] | | + + + + + | Hunter Jackson | ECON | [place] | | + + + + + | Wes Jackson | ECON | [place], [place] | | + + + + + | Oziel Jackson | ECON | [place], [place] | | + + + + + Care Team Providers + +------+ + | Care Revenue Stamp Cutter Name | Role | Phone | [...] | Valvular heart | | | | [address], | [place], | disease; [place]; | | | | [place] [address] | [place] [address] | Essential | | | | [phone] | [phone] | hypertension with | | | | | | goal blood pressure | | | | | | less than 130/80; | | | | | | Coronary artery | | | | | | disease involving | | | | | | [place] coronary | | | | | | artery of [place] | | | | | | heart with unstable | | | | | | angina pectoris | | | | | | ([facility]); Chest pain, | | | [...] cervical Cervical radiculopathy Coronary artery disease involving [place] coronary artery of [place] heart with unstable angina pectoris Stress hyperglycemia [...] Lateral leads Confirmed by CHRISTOPHER SIMMS MD ([id number]) on 10/16/2017 4:36:18 PM LAB RESULTS reviewed during visit today primarily from [facility]: LIPID Lab Results Component Value Date [...] BNPEX 63 09/18/2016 I reviewed records from [facility] for office visit on 10/2017 whic h is summarized in the HPI. RESULTS- I reviewed reports from [facility]: No results found. Above data and testing is reviewed this visit; testing below is historical data unless othe rwise specified. ASSESSMENT: 1. Coronary artery disease A. Seen at [facility] they had EKG and sent her home stating it was GERD B. Seen in the emergency room at [facility] for chest pain. Sh maegan was schedule for stress test and discharged home. C. Stress Test 05/16/16, is maximal asymptomatic stress test, [facility] very poor function status, achieving [...] this chart may have been created with [employer] voice recognition software. Occasi onal wrong-word or [...] STREETER | | | | | | [address] | | | | | | | | +--------+---------+ + + + | 11/21/ | Office | Cardiology | Yesi, | | | 2019 | Visit | | JOSE ALBERTO Linder [address] | | | | | | [place], | | | | | | [place] [address] | | | | | | [phone] | | | | | | | [...] + + | Coronary artery disease involving [place] coronary artery of [place] apache heart with unstable | | angina pectoris (HCC) | + + | Chest pain, unspecified type | + + | Hyperlipidemia, mixed Mixed hyperlipidemia | + + documented in this encounter
--- OUTSIDE RECORDS SUMMARY | ~2019-05-18 | XMS | Encounter Summary ---
Demographics + + + | Address | [address] | | | [place] [address] | + + + | Home Phone [...] Author | [facility] | | | and [place]ana | + + + | Organization | [facility] | | | [...] | | | | | [place] [address] | | + + + + + | Hunter Jackson | ECON | [place] | | + + + + + | Wes Jackson | ECON | [place], [place] | | + + + + + | Oziel Jackson | ECON | [place], [place] | | + + + + + Care Team Providers + +------+ + | Care Post Doctoral Fellow Name | Role | Phone | [...] | 09/20/ | Refill | [facility] [place] [facility] | Rodolfo Cruz, | Medication Refill | | 2015 | | MEDICINE [address] | [address] | | | | | [place] | [place] [address] | | | | | [place] [address] | [address] | | | | | [phone] | | | +--------+--------+ + + + [...] STREETER | | | | | | [address] | | | | | | | | +--------+---------+ + + + | 11/21/ | Office | Cardiology | Yesi, | | | 2019 | Visit | | JOSE ALBERTO [address] | | | | | | [place] | | | | | | [place] [address] | | | | | | [phone] | | | | | | | | +--------+---------+ + + + documented as of this encounter Visit Diagnoses Not on filedocumented in this encounter"
--- OUTSIDE RECORDS SUMMARY | ~2019-05-18 | XMS | Encounter Summary ---
Demographics + + + | Address | [address] | | | [place] [address] | + + + | Home Phone [...] | Author | [facility] | | | and Ohana | + + + | Organization | [facility] | [...] SWAIN | | | | | [place] [address] | | + + + + + | Hunter Jackson | ECON | [place] | | + + + + + | Wes Jackson | ECON | [place], [place] | | + + + + + | Oziel Jackson | ECON | [place], [place] | | + + + + + Care Team Providers + +------+ + | Care Senior Vice President & General Counsel Name | Role | Phone | [...] + + | 07/29/ | Telephone | [facility] [place] | Yany, | Other | | 2016 | | PHYSIATRY [address] | [address] | | | | | [place], | [facility], | | | | | [place] [address] | [place] [address] | | | | | [phone] | [phone] | | | | | | | [...] STREETER | | | | | | [address] | | | | | | | | +--------+---------+ + + + | 11/21/ | Office | Cardiology | Yesi | | | 2019 | Visit | | JOSE ALBERTO Linder [address] | | | | | | [place] | | | | | | [place] [address] | | | | | | [phone] | | | | | | | | +--------+---------+ + + + documented as of this encounter Visit Diagnoses Not on filedocumented in this encounter"
--- OUTSIDE RECORDS SUMMARY | ~2019-05-18 | XMS | Encounter Summary ---
Demographics + + + | Address | [address] | | | [place] [address] | + + + | Home Phone [...] | [facility] | | | and Ohana | + + + | Organization | [facility] | | | [...] | | | | | [place] [address] | | + + + + + | Gisele Jackson | ECON | [place] | | + + + + + | Wes Jackson | ECON | [place], [place] | | + + + + + | Oziel Jackson | ECON | [place], [place] | | + + + + + Care Team Providers + +------+ + | Care Electromechanical Inspector Name | Role | Phone | [...] | | back pain | [address] [facility] | HOSPITAL | | | | | | [address] [place] | [address] [facility] | | | | | | [place] | AVE | | | | | | [address] | [place] | | | | | | Phone: | [address] | | | | | | [phone] | Phone: | | | | | | Fax: | [phone] | | | | | | [phone] | Fax: | | | | | | | [phone] | +--------+ + + + + + [...] + + | 03/29/ | Office | [facility] | Rodolfo Cruz, | Thoracic back pain | | 2014 | Visit | MEDICINE [facility] [place] | MD [address] | (Primary Dx); | | | | [address] [place] | [facility] [place] | Anemia; Epistaxis; | | | | [place] [address] | [address] | Insomnia; Back pain | | | | [phone] | |Back pain | +--------+---------+ + + [...] Epistaxis, recent , seen at ER in [place]. No recurrence using an ointment and decongest [...] | | 2019 | Visit | | [facility] [place] | | | | | | [place] [address] | | | | | | [address] | | | | | | | | +--------+---------+ + + + | 11/21/ | Office | Cardiology | Yesi, | | | 2019 | Visit | | JOSE ALBERTO Linder [address] | | | | | | [place], | | | | | | [place] [address] | | | | | | [phone] | | | | | | | [...]
--- OUTSIDE RECORDS SUMMARY | ~2019-05-18 | XMS | Encounter Summary ---
Demographics + + + | Address | [address] | | | [place] [address] | + + + | Home Phone [...] | [facility] | | | and [place] | + + + | Organization | [facility] [...] SWAIN | | | | | [place] [address] | | + + + + + | Hunter Jackson | ECON | [place] | | + + + + + | Wes Jackson | ECON | [place], [place] | | + + + + + | Oziel Jackson | ECON | [place], [place] | | + + + + + Care Team Providers + +------+ + | Care Openstack Cloud Consulting Architect Name | Role | Phone | [...] POPLAR | radiculopathy | | | | [place], | [place], [place] | (Primary Dx); DDD | | | | [place] [address] | [address] | (degenerative disc | | | | [phone] | | disease), cervical; | | | [...] lidocaine patches. 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 Jensen. 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 She has appropriate fund of [...] with the patient today during the visit. [facility] MRI shows no disc bulge or [...] scheduled for this in the near [facility]. 2. Medications have been reviewed at [...] W | | | | | | [place], | | | | | | [place] [address] | | | | | | [phone] | | | | | | | [...]
--- OUTSIDE RECORDS SUMMARY | ~2019-05-18 | XMS | Encounter Summary ---
Demographics + + + | Address | [address] | | | [place] [address] | + + + | Home Phone [...] | [facility] | | | and [place] | + + + | Organization | [facility] | [...] | | | | | [place] [address] | | + + + + + | Hunter Jackson | ECON | [place], [place] | | + + + + + | Wes Jackson | ECON | [place], [place] | | + + + + + | Oziel Jackson | ECON | [place], [place] | | + + + + + Care Team Providers + +------+ + | Care Director Of Adult Epilepsy Name | Role | Phone | + [...] [address] | | | | | [place], | [place], | | | | | [place] [address] | [place] [address] | | | | | [phone] | [phone] | | | | | | | [...] | | | | | | [place] [address] | | | | | | [phone] | | | | | | | [...] Comment | + + | [facility] | + + + +---------+ + [...] Comment | + + | [facility] | + + + +---------+ [...] Comment | + + | [facility] | + + + +---------+ [...] Comment | + + | [facility] | + + + +---------+ [...] Comment | + + | [facility] | + + + +---------+ [...] Comment | + + | [facility] | + + + +---------+ [...] Comment | + + | [facility] | + + + +---------+ [...] Comment | + + | [facility] | + + + +---------+ [...] Comment | + + | [facility] | + + + +---------+ [...] Comment | + + | [facility] | + + + +---------+ [...] Comment | + + | [facility] | + + + +---------+ [...] Comment | + + | [facility] | + + + +---------+ [...] Comment | + + | [facility] | + + + +---------+ [...] Comment | + + | [facility] | + + + +---------+ [...] Comment | + + | [facility] | + + + +---------+ [...] Comment | + + | [facility] | + + + +---------+ [...] Comment | + + | [facility] | + + + +---------+ [...] Comment | + + | [facility] | + + + +---------+ [...] Comment | + + | [facility] | + + + +---------+ [...] Comment | + + | [facility] | + + + +---------+ [...]
--- OUTSIDE RECORDS SUMMARY | ~2019-05-18 | XMS | Encounter Summary ---
Demographics + + + | Address | [address] | | | [place] [address] | + + + | Home Phone [...] Author | [facility] | | | and [place] | + + + | Organization | [facility] | | | and [place] | + + + | Address | Unknown | + + + | Phone | Unavailable | + + + Support + + + + + | Name | Relationship | Address | Phone | + + + + + | Osmin Jackson | ECON | [address] | | | | | [place] [address] | | + + + + + | Hunter Jackson | ECON | [place] | | + + + + + | Wes Jackson | ECON | [place], [place] | | + + + + + | Oziel Jackson | ECON | [place], [place] | | + + + + + Care Team Providers + +------+ + | Care Forms Designer Name | Role | Phone | + +------+ + | Kellie Gunderson | PCP | | + +------+ + Encounter Details +--------+ + + + + | Date | Type | Department | Care Team | Description | +--------+ + + + + | 06/01/ | Abstract | [facility] [place] | Yesi, | | | 2018 | | CARDIOLOGY [address] | JOSE ALBERTO Linder [address] | | | | | [place], | [place], | | | | | [place] [address] | [place] [address] | | | | | [phone] | | | | | | | [...] W | | | | | | [place] | | | | | | [place] [address] | | | | | | [phone] | | | | | | | [...]
--- OUTSIDE RECORDS SUMMARY | ~2019-05-18 | XMS | Encounter Summary ---
Demographics + + + | Address | [address] | | | [place] [address] | + + + | Home Phone [...] Author | [facility] | | | and [place] | + + + | Organization | [facility] | [...] SWA[place] | | | | | [place] [address] | | + + + + + | Hunter Jackson | ECON | [place] | | + + + + + | Wes Jackson | ECON | [place], [place] | | + + + + + | Oziel Jackson | ECON | [place], [place] | | + + + + + Care Team Providers + +------+ + | Care Fluorescent Solution Mixer Name | Role | Phone | [...] + + | 11/22/ | Office | [facility] | Irina Simms, | Coronary artery | | 2017 | Visit | CARDIOLOGY [address] | [address] [place] | disease involving | | | | [place], | [place], | [place] coronary | | | | [place] [address] | [place] [address] | artery of [place] | | | | [phone] | [phone] | heart with unstable | | | [...] Since that time, patient was admitted to [facility] on 11/01/2016 for CABG x3 [...] cervical Cervical radiculopathy Coronary artery disease involving [place] coronary artery of [place] heart with unstable angina pectoris Stress hyperglycemia [...] PLTEX 370 09/18/2016 I reviewed records from Chritsina Loo MD for hospitalization,including H&P, Discharge Summary and lab reports on 11/01/2016-11/06/2016. Refer to fruit buying grader. Above data and testing is reviewed this visit; testing below is historical data unless othe rwise specified. ASSESSMENT: 1. Coronary artery disease A. Seen at [facility] they had EKG and sent her home stating it was GERD B. Seen in the emergency room at [facility] for chest pain. She was schedule for stre ss test and discharged home. C. Stress Test 05/16/16, is maximal asymptomatic stress test, [facility] very poor function status, achieving maximal heart [...] trace [place], normal aorta other than mild c alcification [...] [place] [employer] functional class. There is bilateral [...] 11:38 Electronically signed by: Irina Simms MD [facility] 11/22/2016 Portions of this chart may [...] | | | | | | [place] [address] | | | | | | [phone] | | | | | | | | +--------+---------+ + + + documented as of this encounter Visit Diagnoses + + | Diagnosis | + + | Coronary artery disease involving [place] coronary artery of [place] heart with unstable | | angina pectoris (HCC) | + + documented in this encounter
--- OUTSIDE RECORDS SUMMARY | ~2019-05-18 | XMS | Encounter Summary ---
Demographics + + + | Address | [address] | | | [place] [address] | + + + | Home Phone [...] + + | Author | [facility] | | | and [place] | + + + | Organization | [facility] [...] | | | | | [place] [address] | | + + + + + | Hunter Jackson | ECON | [place] | | + + + + + | Wes Jackson | ECON | [place], [place] | | + + + + + | Oziel Jackson | ECON | [place], [place] | | + + + + + Care Team Providers + +------+ + | Care Contact Lens Blocker Name | Role | Phone | [...] + | 10/31/ | Telephone | [facility] | Rodolfo Cruz, | Results | | 2014 | | MEDICINE [facility] Sravan | MD [address] | | | | | [place] | [place] [address] | | | | | [place] [address] | [address] | | | | | [phone] | | | +--------+ + + + [...] STREETER | | | | | | [address] | | | | | | | | +--------+---------+ + + + | 11/21/ | Office | Cardiology | Yesi, | | | 2019 | Visit | | JOSE ALBERTO Linder [address] | | | | | | [place] | | | | | | [place] [address] | | | | | | [phone] | | | | | | | [...]
--- OUTSIDE RECORDS SUMMARY | ~2019-05-18 | XMS | Encounter Summary ---
Demographics + + + | Address | [address] | | | [place] [address] | + + + | Home Phone [...] | Author | [facility] | | | and [place] | + + + | Organization | [facility] | | [...] | | | | | [place] [address] | | + + + + + | Hunter Jackson | ECON | [place] | | + + + + + | Wes Jackson | ECON | [place], [place] | | + + + + + | Oziel Jackson | ECON | [place], [place] | | + + + + + Care Team Providers + +------+ + | Care Sinker Winder Name | Role | Phone | + +------+ + | Rodolfo Cruz MD | PCP | | + +------+ + Encounter Details +--------+ + + + + | Date | Type | Department | Care Team | Description | +--------+ + + + + | 05/23/ | Hospital | [facility] | [place], | Hypothyroidism, | | 2016 | Encounter | [facility] CTR LAB[facility]ATORY | JOSE ALBERTO Linder [address] | unspecified | | | | [address] [place] | [place], | hypothyroidism type | | | | [place], [place] | [place] [address] | | | | | [address] | [phone] | | | | | [phone] | | | +--------+ + + + [...] | | | | | | [place] [address] | | | | | | [phone] | | | | | | | [...] + | [facility] | [address] | [place] | [phone] | | [facility] | | [address] | | | - LABORATORY | | [...] + | [facility] | [address] | [place] | [phone] | | [facility] | | [address] | | | - LABORATORY | | | | + + + + + documented in this encounter Visit Diagnoses + + | Diagnosis | + + | Hypothyroidism, unspecified hypothyroidism type | + + documented in this encounter"
--- OUTSIDE RECORDS SUMMARY | ~2019-05-18 | XMS | Encounter Summary ---
Demographics + + + | Address | [address] | | | [place] [address] | + + + | Home Phone [...] + | Author | [facility] | | | and [place] | + + + | Organization | [facility] | [...] | | | | | [place] [address] | | + + + + + | Hunter Jackson | ECON | [place] | | + + + + + | Wes Jackson | ECON | [place], [place] | | + + + + + | Oziel Jackson | ECON | [place], [place] | | + + + + + Care Team Providers + +------+ + | Care Parcel Post Weigher Name | Role | Phone | + +------+ + | Rodolfo Cruz MD | PCP | | + +------+ + Encounter Details +--------+ + + + + | Date | Type | Department | Care Team | Description | +--------+ + + + + | 02/16/ | Orders Only | [facility] | Rodolfo Cruz, | Pulmonary nodule | | 2013 | | MEDICINE [address] [place] [address] | MD [address] | (Primary Dx) | | | | [facility] | [place], [place] | | | | | [place] [address] | [address] | | | | | [phone] | | | +--------+ + + + [...] [place] | | | | | | [address] | | | | | | | | +--------+---------+ + + + | 11/21/ | Office | Cardiology | Yesi, | | | 2019 | Visit | | JOSE ALBERTO Linder [address] | | | | | | [place], | | | | | | [place] [address] | | | | | | [phone] | | | | | | | [...] mL/min/1.73m2 | [facility] | | | [facility] | | | MEDICAL | | | [...] + | [facility] | [address] | [place] | [phone] | | [facility] | | [address] | | | - LABORATORY | | | | + + + + + | [facility] | [address] | [place] | | | [facility] | | [address] | | | - LABORATORY | | [...] + | [facility] | [address] | [place] | [phone] | | [facility] | | [address] | | | - LABORATORY | | | | + + + + + | [facility] | [address] | [place] | | | [facility] | | [address] | | | - LABORATORY | | | | + + + + + documented in this encounter Visit Diagnoses + + | Diagnosis | + + | Pulmonary nodule - Primary Solitary pulmonary nodule | + + documented in this encounter"
--- OUTSIDE RECORDS SUMMARY | ~2019-05-18 | XMS | Encounter Summary ---
Demographics + + + | Address | [address] | | | [place] [address] | + + + | Home Phone [...] | [facility] | | | and [place] | + + + | Organization | [facility] [...] | | | | | [place] [address] | | + + + + + | Hunter Jackson | ECON | [place] | | + + + + + | Wes Jackson | ECON | [place], [place] | | + + + + + | Oziel Jackson | ECON | [place], [place] | | + + + + + Care Team Providers + +------+ + | Care Shop Router Name | Role | Phone | + [...] | 10/11/ | Refill | [facility] [place] [facility] | Rodolfo Cruz, | Medication Refill | | 2015 | | MEDICINE [address] | [address] | | | | | [place] | [place] [address] | | | | | [place] [address] | [address] | | | | | [phone] | | | +--------+--------+ + + + [...] STREETER | | | | | | [address] | | | | | | | | +--------+---------+ + + + | 11/21/ | Office | Cardiology | Yesi, | | | 2019 | Visit | | JOSE ALBERTO Linder [address] | | | | | | [place] | | | | | | [place] [address] | | | | | | [phone] | | | | | | | | +--------+---------+ + + + documented as of this encounter Visit Diagnoses + + | Diagnosis | + + | Pain Generalized pain | + + documented in this encounter"
--- OUTSIDE RECORDS SUMMARY | ~2019-05-18 | XMS | Encounter Summary ---
Demographics + + + | Address | [address] | | | [place] [address] | + + + | Home Phone [...] | Author | [facility] | | | and [place] | + + + | Organization | [facility] | | | and [place] | + + + | Address | Unknown | + + + | Phone | Unavailable | + + + Support + + + + + | Name | Relationship | Address | Phone | + + + + + | Osmin Jackson | ECON | [address] | | | | | [place] [address] | | + + + + + | Hunter Jackson | ECON | [place] | | + + + + + | Wes Jackson | ECON | [place], [place] | | + + + + + | Oziel Jackson | ECON | [place], [place] | | + + + + + Care Team Providers + +------+ + | Care Antisqueak Chalker Name | Role | Phone | + [...] | Visit | ORTHOPEDIC SURGERY | [address] [facility] | carpometacarpal | | | | [address] [facility] | [place] | (CMC) joint of right | | | | [place], [place] | [address] | thumb (Primary Dx); | | | | [address] | | Rotator cuff tear | | | | [phone] | | arthropathy of right | | [...] STREETER | | | | | | [address] | | | | | | | | +--------+---------+ + + + | 11/21/ | Office | Cardiology | Yesi, | | | 2019 | Visit | | JOSE ALBERTO Linder [address] | | | | | | [place], | | | | | | [place] [address] | | | | | | [phone] | | | | | | | [...]
--- OUTSIDE RECORDS SUMMARY | ~2019-05-18 | XMS | Encounter Summary ---
Demographics + + + | Address | [address] | | | [place] [address] | + + + | Home Phone [...] Author | [facility] | | | and [place] | + + + | Organization | [facility] | [...] | | | | | [place] [address] | | + + + + + | Hunter Jackson | ECON | [place] | | + + + + + | Wes Jackson | ECON | [place], [place] | | + + + + + | Oziel Jackson | ECON | [place], [place] | | + + + + + Care Team Providers + +------+ + | Care Inside Meter Tester Name | Role | Phone | + +------+ + | Rodolfo Cruz MD | PCP | | + +------+ + Encounter Details +--------+ + + + + | Date | Type | Department | Care Team | Description | +--------+ + + + + | 05/08/ | Hospital | [facility] | Beatriz Faust | | | 2010 | Encounter | MED CTR LABORATORY | DO Danny [place] | | | | | [address] [facility] | [place], [place] | | | | | [place], [place] | [address] | | | | | [address] | | | | | | [phone] | | | +--------+ + + + [...] | | | | | | [place] [address] | | | | | | [phone] | | | | | | | [...] [address] | [place] | [phone] | | [facility] | | [address] | | | - LABORATORY | | | | + + + + + | [address] | [address] | [place], [place] | | | [facility] | | [address] | | | - LABORATORY | | [...] + | [facility] [facility] | [address] | [place], [place] | [phone] | | [facility] | | [address] | | | - LABORATORY | | | | + + + + + | [facility] | [address] | [place], [place] | | | [facility] | | [address] | | | - LABORATORY | | [...] | + + + + + | [facility] [facility] | [address] | [place], [place] | [phone] | | [facility] | | [address] | | | - LABORATORY | | | | + + + + + | [facility] | [address] | [place], [place] | | | [facility] | | [address] | | | - LABORATORY | | | | + + + + + documented in this encounter Visit Diagnoses Not on filedocumented in this encounter"
--- OUTSIDE RECORDS SUMMARY | ~2019-05-18 | XMS | Encounter Summary ---
Demographics + + + | Address | [address] | | | [place] [address] | + + + | Home Phone [...] Author | [facility] | | | and [place] | + + + | Organization | [facility] | | [...] | | | | | [place] [address] | | + + + + + | Hunter Jackson | ECON | [place] | | + + + + + | Wes Jackson | ECON | [place], [place] | | + + + + + | Oziel Jackson | ECON | [place], [place] | | + + + + + Care Team Providers + +------+ + | Care Energy Economist Name | Role | Phone | [...] | (Screening) (Log | | | | [place], | [place], | from 11/18/14 till | | | | [place] [address] | [place] [address] | 12/02/14) | | | | [phone] | [phone] | | | | | | | [...] STREETER | | | | | | [address] | | | | | | | | +--------+---------+ + + + | 11/21/ | Office | Cardiology | Yesi, | | | 2020 | Visit | | JOSE ALBERTO Linder [address] | | | | | | [place], | | | | | | [place] [address] | | | | | | [phone] | | | | | | | | +--------+---------+ + + + documented as of this encounter Visit Diagnoses Not on filedocumented in this encounter"
--- OUTSIDE RECORDS SUMMARY | ~2019-05-18 | XMS | Encounter Summary ---
Demographics + + + | Address | [address] | | | [place] [address] | + + + | Home Phone [...] Author | [facility] | | | and Ohana | + + + | Organization | [facility] [...] SWA[place] | | | | | [place] [address] | | + + + + + | Hunter Jackson | ECON | [place] | | + + + + + | Wes Jackson | ECON | [place], [place] | | + + + + + | Oziel Jackson | ECON | [place], [place] | | + + + + + Care Team Providers + +------+ + | Care Metallurgical Lab Technician Name | Role | Phone [...] | Visit | ORTHOPEDIC SURGERY | [address] [facility] | carpometacarpal | | | | [address] [facility] | [place] | (CMC) joint of right | | | | [place], [place] | [address] | thumb (Primary Dx); | | | | [address] | | Rotator cuff tear | | | | [phone] | | arthropathy of right | | [...] STREETER | | | | | | [address] | | | | | | | | +--------+---------+ + + + | 11/21/ | Office | Cardiology | Yesi, | | | 2019 | Visit | | JOSE ALBERTO Linder [address] | | | | | | [place], | | | | | | [place] [address] | | | | | | [phone] | | | | | | | [...]
--- OUTSIDE RECORDS SUMMARY | ~2019-05-18 | XMS | Encounter Summary ---
Demographics + + + | Address | [address] | | | [place] [address] | + + + | Home Phone [...] Author | [facility] | | | and Ohana | + + + | Organization | [facility] | | [...] | | | | | [place] [address] | | + + + + + | Hunter Jackson | ECON | [place] | | + + + + + | Wes Jackson | ECON | [place], [place] | | + + + + + | Oziel Jackson | ECON | [place], [place] | | + + + + [...] + + | 10/30/ | Telephone | [facility] | Rodolfo Cruz, | Back Pain | | 2016 | | MEDICINE [address] [place] [address] | MD [address] | | | | | [place] | [place] | | | | | [place] [address] | [address] | | | | | [phone] | | | +--------+ + + + [...] STREETER | | | | | | [address] | | | | | | | | +--------+---------+ + + + | 11/21/ | Office | Cardiology | Yesi | | | 2019 | Visit | | JOSE ALBERTO Linder [address] | | | | | | [place] | | | | | | [place] [address] | | | | | | [phone] | | | | | | | | +--------+---------+ + + + documented as of this encounter Visit Diagnoses Not on filedocumented in this encounter"
--- OUTSIDE RECORDS SUMMARY | ~2019-05-18 | XMS | Encounter Summary ---
Demographics + + + | Address | [address] | | | [place] [address] | + + + | Home Phone [...] Author | [facility] | | | and Ohana | + + + | Organization | [facility] | [...] | | | | | [place] [address] | | + + + + + | Hunter Jackson | ECON | [place] | | + + + + + | Wes Jackson | ECON | [place], [place] | | + + + + + | Oziel Jackson | ECON | [place], [place] | | + + + + + Care Team Providers + +------+ + | Care Director Dermatology Name | Role | Phone | + [...] | [address] | | | | | [address] | | | | | | [phone] | | | +--------+--------+ + + + [...] STREETER | | | | | | [address] | | | | | | | | +--------+---------+ + + + | 11/21/ | Office | Cardiology | Yesi, | | | 2019 | Visit | | JOSE ALBERTO [address] | | | | | | [place] | | | | | | [place] [address] | | | | | | [phone] | | | | | | | | +--------+---------+ + + + documented as of this encounter Visit Diagnoses + + | Diagnosis | + + | Pain - Primary Generalized pain | + + documented in this encounter"
--- OUTSIDE RECORDS SUMMARY | ~2019-05-18 | XMS | Encounter Summary ---
Demographics + + + | Address | [address] | | | [place] [address] | + + + | Home Phone [...] | Author | [facility] | | | and [place] | + + + | Organization | [facility] | | | and [place] | + + + | Address | Unknown | + + + | Phone | Unavailable | + + + Support + + + + + | Name | Relationship | Address | Phone | + + + + + | Osmin Jackson | ECON | [address] | | | | | [place] [address] | | + + + + + | Hunter Jackson | ECON | [place] | | + + + + + | Wes Jackson | ECON | [place], [place] | | + + + + + | Oziel Jackson | ECON | [place], [place] | | + + + + + Care Team Providers + +------+ + | Care Jukebox Checker Name | Role | Phone | [...] of right | [address] | [place] [address] | | | | | shoulder | [place], | Phone: | | | | | Follow Up | [place] [address] | [phone] | | | | | Right | Phone: | Fax: | | | | | Shoulder and | [phone] | [phone] | | | | | Right [facility] | Fax: | | | | | | Injection | [phone] | | | | | | Last [...] ORTHOPEDIC SURGERY | MD [address] [facility] | carpometacarpal | | | | [address] [facility] | [place] | (CMC) joint of right | | | | [place], [place] | [address] | thumb (Primary Dx); | | | | [address] | | Rotator cuff tear | | | | [phone] | | arthropathy of right | | [...] STREETER | | | | | | [address] | | | | | | | | +--------+---------+ + + + | 11/21/ | Office | Cardiology | Yesi, | | | 2019 | Visit | | JOSE ALBERTO [address] [address] | | | | | | [place], | | | | | | [place] [address] | | | | | | [phone] | | | | | | | [...]
--- OUTSIDE RECORDS SUMMARY | ~2019-05-18 | XMS | Encounter Summary ---
Demographics + + + | Address | [address] | | | [place] [address] | + + + | Home Phone [...] | Author | [facility] | | | and [place]ana | + + + | Organization | [facility] | [...] | | | | | [place] [address] | | + + + + + | Hunter Jackson | ECON | [place] | | + + + + + | Wes Jackson | ECON | [place], [place] | | + + + + + | Oziel Jackson | ECON | [place], [place] | | + + + + + Care Team Providers + +------+ + | Care Site Administrator Name | Role | Phone | + +------+ + | Rodolfo Cruz MD | PCP | | + +------+ + Encounter Details +--------+ + + + + | Date | Type | Department | Care Team | Description | +--------+ + + + + | 11/06/ | Hospital | [facility] | Rodolfo Cruz, | Hives of unknown | | 2016 | Encounter | MED CTR LABORATORY | MD [address] | origin | | | | [address] [place] | [place] [address] | | | | | [place] | [address] | | | | | [address] | | | | | | [phone] | | | +--------+ + + + [...] + + + +---------+ + + | Newell 3 1000 MG | Take by mouth. [...] [place] | | | | | | [address] | | | | | | | | +--------+---------+ + + + | 11/21/ | Office | Cardiology | Yesi, | | | 2019 | Visit | | JOSE ALBERTO Linder [address] | | | | | | [place], | | | | | | [place] [address] | | | | | | [phone] | | | | | | | [...] - 1.030 | [facility] | | | [place] | | | [facility] | | [...] [address] | [place] | [phone] | | [facility] | | [address] | | | - LABORATORY | | [...] [address] | [place] | [phone] | | [facility] | | [address] | | | - LABORATORY | | [...] | 0.74 | 0.60 - 1.30 | [facility] | | | | | mg/dL | [facility] | | | | | | MEDICAL | | | | | | CENTER - | | | | | | LABORATORY | | + + + + + + | eGFR if not | >60Comment: GLOMERULAR | >=60 | [facility] | | | | FILTRATION | mL/min/1.73m2 | [facility] | | | TURKMEN | RATE,ESTIMATED | | MEDICAL | | | | mL/min/1.89e5Tihk than | | CENTER - | | [...] | 9.4 | 8.3 - 10.5 | [facility] | | | | | mg/dL | [facility] | | [...] [address] | [place] | [phone] | | [facility] | | [address] | | | - LABORATORY | | [...] [place] | | | | | | STTatayna [...] [address] | [place] | [phone] | | [facility] | | [address] | | | - LABORATORY | | | | + + + + + documented in this encounter Visit Diagnoses + + | Diagnosis | + + | Hives of unknown origin | + + documented in this encounter"
--- OUTSIDE RECORDS SUMMARY | ~2019-05-18 | XMS | Encounter Summary ---
Demographics + + + | Address | [address] | | | [place] [address] | + + + | Home Phone [...] | Author | [facility] | | | and [place]ana | + + + | Organization | [facility] [...] | | | | | [place] [address] | | + + + + + | Hunter Jackson | ECON | [place] | | + + + + + | Wes Jackson | ECON | [place], [place] | | + + + + + | Oziel Jackson | ECON | [place], [place] | | + + + + + Care Team Providers + +------+ + | Care Senior Core Java Developer Name | Role | Phone | + +------+ + PCP | Unavailable | + +------+ + Encounter Details +--------+ + + + + | Date | Type | Department | Care Team | Description | +--------+ + + + + | 06/07/ | Hospital | [facility] | | | | 2010 | Encounter | MED CTR XRAY [address] | | | | | | [place] | | | | | | [place] [address] | | | | | | [phone] | | | +--------+ + + + [...] STREETER | | | | | | [address] | | | | | | | | +--------+---------+ + + + | 11/21/ | Office | Cardiology | Yesi, | | | 2019 | Visit | | JOSE ALBERTO [address]inder [address] | | | | | | [place], | | | | | | [place] [address] | | | | | | [phone] | | | | | | | | +--------+---------+ + + + documented as of this encounter Visit Diagnoses Not on filedocumented in this encounter"
--- OUTSIDE RECORDS SUMMARY | ~2019-05-18 | XMS | Encounter Summary ---
Demographics + + + | Address | [address] | | | [place] [address] | + + + | Home Phone [...] Author | [facility] | | | and Ohana | + + + | Organization | [facility] [...] | | | | | [place] [address] | | + + + + + | Hunter Jackson | ECON | [place] | | + + + + + | Wes Jackson | ECON | [place], [place] | | + + + + + | Oziel Jackson | ECON | [place], [place] | | + + + + + Care Team Providers + +------+ + | Care Etiquette Coach Name | Role | Phone | + +------+ + | Rodolfo Cruz MD | PCP | | + +------+ + Encounter Details +--------+ + + + + | Date | Type | Department | Care Team | Description | +--------+ + + + + | 03/15/ | Hospital | [facility] | Rodolfo Cruz, | Other specified | | 2014 | Encounter | MED CTR LABORATORY | MD [address] | hypothyroidism; | | | | [address] [place] | [place], [place] | Pulmonary nodule, | | | | [place], [place] | [address] | right | | | | [address] | | | | | | [phone] | | | +--------+ + + + [...] | | | | | | [place] [address] | | | | | | [phone] | | | | | | | [...] | | | | M/uL | [facility] | | | | [...] [address] | [place] | [phone] | | [facility] | | [address] | | | - LABORATORY | | [...] [address] | [place] | [phone] | | [facility] | | [address] | | | - LABORATORY | | | | + + + + + documented in this encounter Visit Diagnoses + + | Diagnosis | + + | Other specified hypothyroidism | + + | Pulmonary nodule, right Solitary pulmonary nodule | + + documented in this encounter"
--- OUTSIDE RECORDS SUMMARY | ~2019-05-18 | XMS | Encounter Summary ---
Demographics + + + | Address | [address] | | | [place] [address] | + + + | Home Phone [...] | Author | [facility] | | | and [place]ana | + + + | Organization | [facility] | | | and hOana | + + + | Address | Unknown | + + + | Phone | Unavailable | + + + Support + + + + + | Name | Relationship | Address | Phone | + + + + + | Osmin Jackson | ECON | [address] | | | | | [place] [address] | | + + + + + | Hunter Jackson | ECON | [place] | | + + + + + | Wes Jackson | ECON | [place], [place] | | + + + + + | Oziel Jackson | ECON | [place], [place] | | + + + + + Care Team Providers + +------+ + | Care Stem Frazer Name | Role | Phone | + [...] + | 03/25/ | Office | [facility] | Alejandra Ferris MS | Dizziness (Primary | | 2011 | Visit | AUDIOLOGY AND | [facility] [address] | Dx) | | | | [facility]ARING AID SERVICES | [address] [facility] | | | | | [address] | [place] [address] | | | | | [address] [facility] | [phone] | | | | | [place] [address] | | | | | | [phone] | | | +--------+---------+ + + + [...] being dizzy upon waking up one morning. [place] like the room was spinning. 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 A full hearing evaluation was carried out and unruly ent was scheduled to see Dr. Davis, ENT. Please see audiogram for hearing test results.Sariah ctronically signed by Alejandra Ferris, CCC-A at 03/25/2012 1:00 PM Zion Rosas MD - 1 05/25/2011 12:00 AM [facility]NT [facility]UDIOLOGY [address] [place], [place] [address] FAX: [phone] OFFICE VISIT The patient comes in because she has had a couple of episodes where she had a lot of dizzin ess. She describes the episodes as problems when she would sometimes look down or look up, she would get a spinning type of sensation. This would go on and off probably for about a w council. It then subsided and then occurred again [...] left. No other ENT complaints at the [facility] rent time. EXAMINATION GENERAL: Shows an alert [...] MD / [facility] JOB #: [id number] signed by Zion Davis MD at 03/25/2012 [...] STREETER | | | | | | [id number] | | | | | | | | +--------+---------+ + + + | 11/21/ | Office | Cardiology | Yesi, | | | 2019 | Visit | | JOSE ALBERTO Linder [address] | | | | | | [place], | | | | | | [place] [address] | | | | | | [phone] | | | | | | | | +--------+---------+ + + + documented as of this encounter Visit Diagnoses + + | Diagnosis | + + | Dizziness - Primary Dizziness and giddiness | + + documented in this encounter"
--- OUTSIDE RECORDS SUMMARY | ~2019-05-18 | XMS | Encounter Summary ---
Demographics + + + | Address | [address] | | | [place] [address] | + + + | Home Phone [...] Author | [facility] | | | and [place]ana | + + + | Organization | [facility] | [...] | | | | | [place] [address] | | + + + + + | Hunter Jackson | ECON | [place] | | + + + + + | Wes Jackson | ECON | [place], [place] | | + + + + + | Oziel Jackson | ECON | [place], [place] | | + + + + + Care Team Providers + +------+ + | Care Umbrella Frame Maker Name | Role | Phone | [...] + | 05/31/ | Telephone | [facility] | Yesi, | Other (issue with | | 2015 | | CARDIOLOGY [address] | JOSE ALBERTO Linder [address] | blood pressure) | | | | [place], | [place], | | | | | [place] [address] | [place] [address] | | | | | [phone] | [phone] | | | | | | | [...] STREETER | | | | | | [address] | | | | | | | | +--------+---------+ + + + | 11/21/ | Office | Cardiology | Yesi, | | | 2019 | Visit | | JOSE ALBERTO Linder [address] | | | | | | [place] | | | | | | [place] [address] | | | | | | [phone] | | | | | | | | +--------+---------+ + + + documented as of this encounter Visit Diagnoses Not on filedocumented in this encounter"
--- OUTSIDE RECORDS SUMMARY | ~2019-05-18 | XMS | Encounter Summary ---
Demographics + + + | Address | [address] | | | [place] [address] | + + + | Home Phone | | + + + | Preferred Language | Unknown | + + + | Marital Status | | + + + | Shinto Affiliation | Unknown | + + + | Race | Unknown | + + + | Ethnic Group | Unknown | + + + Author + + + | Author | [facility] | | | and [place]ana | + + + | Organization | [facility] [...] [place] | | | | | [place] [address] | | + + + + + | Hunter Jackson | ECON | [place] | | + + + + + | Wes Jackson | ECON | [place], [place] | | + + + + + | Oziel Jackson | ECON | [place], [place] | | + + + + + Care Team Providers + +------+ + | Care Fire Safety Director Name | Role | Phone | [...] | 07/17/ | Refill | [facility] | Rodolfo Cruz, | Medication Refill | | 2017 | | MEDICINE [place] | [address] | | | | | [address] | [place] | | | | | [place] | [address] | | | | | [address] | | | | | | [phone] | | | +--------+--------+ + + + [...] STREETER | | | | | | [address] | | | | | | | | +--------+---------+ + + + | 11/21/ | Office | Cardiology | Yesi, | | | 2019 | Visit | | JOSE ALBERTO [address] | | | | | | [place] | | | | | | [place] [address] | | | | | | [phone] | | | | | | | | +--------+---------+ + + + documented as of this encounter Visit Diagnoses Not on filedocumented in this encounter"
--- OUTSIDE RECORDS SUMMARY | ~2019-05-18 | XMS | Encounter Summary ---
Demographics + + + | Address | [address] | | | [place] [address] | + + + | Home Phone [...] + | Author | [facility] | | | and Ohana | + + + | Organization | [facility] | | [...] | | | | | [place] [address] | | + + + + + | Hunter Jackson | ECON | [place] | | + + + + + | Wes Jackson | ECON | [place], [place] | | + + + + + | Oziel Jackson | ECON | [place], [place] | | + + + + + Care Team Providers + +------+ + | Care Brush Clearer Surveying Name | Role | Phone | + [...] | 02/14/ | Refill | [facility] | Rodolfo Cruz, | Medication Refill | | 2016 | | MEDICINE [address] | [address] | | | | | [place] | [place] | | | | | [place] [address] | [address] | | | | | [phone] | | | +--------+--------+ + + + [...] | | | | | | [place] [address] | | | | | | [phone] | | | | | | | | +--------+---------+ + + + documented as of this encounter Visit Diagnoses Not on filedocumented in this encounter"
--- OUTSIDE RECORDS SUMMARY | ~2019-05-18 | XMS | Encounter Summary ---
Demographics + + + | Address | [address] | | | [place] [address] | + + + | Home Phone [...] | Author | [facility] | | | and Ohana | + + + | Organization | [facility] | [...] | | | | | [place] [address] | | + + + + + | Hunter Jackson | ECON | [place] | | + + + + + | Wes Jackson | ECON | [place], [place] | | + + + + + | Oziel Jackson | ECON | [place], [place] | | + + + + + Care Team Providers + +------+ + | Care Scrap Drop Operator Name | Role | Phone | [...] Pulmonary | Rodolfo Reilly MD | [address] | | | | | nodules | [address] | [place], | | | | | Procedures | [place] | [place] [address] | | | | | CT Chest w | [place], [place] | Phone: | | | | | Contrast | [address] | [phone] | | | | | AFTER | Phone: | Fax: | | | | | 02/17/15 | [phone] | [phone] | | | | | | Fax: | | | | | | | [phone] | | +--------+--------+ + + + + [...] Pulmonary | Rodolfo Reilly MD | [address] | | | | | nodules | [address] | [place], | | | | | Procedures | [place] | [place] [address] | | | | | CT Chest w | [place], [place] | Phone: | | | | | Contrast | [address] | [phone] | | | | | AFTER | Phone: | Fax: | | | | | 02/17/15 | [phone] | [phone] | | | | | | Fax: | | | | | | | [phone] | | +--------+--------+ + + + + Encounter Details +--------+ + + + + | Date | Type | Department | Care Team | Description | +--------+ + + + + | 03/23/ | Hospital | [facility] | Rodolfo Cruz, | Pulmonary nodules | | 2015 | Encounter | MED CTR CT [address] | [address] | | | | | [place], | [place], [place] | | | | | [place] [address] | [address] | | | | | [phone] | | | | | | | Provider Not, In | | | | | | System [place] | | | | | | Health [...] W | | | | | | [address] [place], | | | | | | [place] [address] | | | | | | [phone] | | | | | | | [...] nodules. COMPARISON: 08/18/2014, 02/22/2014. PROTOCOL: Axial | [facility] | | images of the chest were obtained after uneventful administration of | [facility] | | 75 mL Omnipaque 350. [...] + | [facility] | [address] | [place] | [phone] | | [facility] | | [address] | | | - IMAGING | | [...] mL/min/1.73m2 | [facility] | | | [place] | | | MEDICAL | | | [...] [address] | [place] | [phone] | | [facility] | | [address] | | | - LABORATORY | | [...]
--- OUTSIDE RECORDS SUMMARY | ~2019-05-18 | XMS | Encounter Summary ---
Demographics + + + | Address | [address] | | | [place] [address] | + + + | Home Phone [...] Author | [facility] | | | and Ohana | + + + | Organization | [facility] [...] | | | | | [place] [address] | | + + + + + | Hunter Jackson | ECON | [place] | | + + + + + | Wes Jackson | ECON | [place], [place] | | + + + + + | Oziel Jackson | ECON | [place], [place] | | + + + + + Care Team Providers + +------+ + | Care Dry Chain Worker Name | Role | Phone | + +------+ + | Rodolfo Cruz MD | PCP | | + +------+ + Encounter Details +--------+ + + + + | Date | Type | Department | Care Team | Description | +--------+ + + + + | 03/23/ | Abstract | [facility] | Zion Davis MD | | | 2011 | | OTOLARYNGOLOGY [address] | [address] [facility] | | | | | [address] [facility] [address] | [address] [place], | | | | | [place] | [place] [address] | | | | | [address] | [phone] | | | | | [phone] | | | +--------+ + + + [...] STREETER | | | | | | [address] | | | | | | | | +--------+---------+ + + + | 11/21/ | Office | Cardiology | Yesi, | | | 2019 | Visit | | JOSE ALBERTO [address] | | | | | | [place], | | | | | | [place] [address] | | | | | | [phone] | | | | | | | | +--------+---------+ + + + documented as of this encounter Visit Diagnoses Not on filedocumented in this encounter"
--- OUTSIDE RECORDS SUMMARY | ~2019-05-18 | XMS | Encounter Summary ---
Demographics + + + | Address | [address] | | | [place] [address] | + + + | Home Phone | | + + + | Preferred Language | Unknown | + + + | Marital Status | Single | + + + | Protestant Affiliation [...] Team Providers + +------+ + | Care Ferryboat Helper Name | Role | Phone | + +------+ + PCP | Unavailable | + +------+ + Encounter Details +--------+ + + + + | Date | Type | Department | Care Team | Description | +--------+ + + + + | 04/03/ | Results | | Other, Faculty | | | 2004 | Only | | [phone] | | +--------+ + + + + [...] | | Results for this | | [facility]) | e | | | procedure are in the | | | | | | results section. | + +--------+ + + + | DERMATOPATHOLOGY(WET | Routin | 04/03/2005 | | Results for this | | [facility]) | e | | | procedure are in the | | | | | | results section. | + +--------+ + + + documented in this encounter Results DERMATOPATHOLOGY(WET [facility]) (05/22/2005) + + + + + + | Component | Value | Ref Range | Performed | Pathologist | | | | | At | Signature | + + + + + + | DERMATOPATH | SOURCE OF SPECIMEN:A | | | | | OLOGY(WET | FIRST TISSUE LEVEL IV | | | | | MNT) | [address] CLINICAL | | | | | | [...] [facility] | Mailcode CH[address], [address] | [place] [address] | | | DERMATOPATHOLOGY | [address] [...] | | | | | M[place]) | [address] CLINICAL | | | | | | [...] Rich MCCORMICK, [address] | [place] [id number] | | | DERMATOPATHOLOGY | [address] | | | + + + + + documented in this encounter Visit Diagnoses Not on filedocumented in this encounter"
--- OUTSIDE RECORDS SUMMARY | ~2019-05-18 | XMS | Encounter Summary ---
Demographics + + + | Address | [address] | | | [place] [address] | + + + | Home Phone [...] Author | [facility] | | | and Ohana | + + + | Organization | [facility] | | [...] SWAIN | | | | | [place] [address] | | + + + + + | Hunter Jackson | ECON | [place] | | + + + + + | Wes Jackson | ECON | [place], [place] | | + + + + + | Oziel Jackson | ECON | [place], [place] | | + + + + + Care Team Providers + +------+ + | Care Insulation Estimator Name | Role | Phone | + [...] + + | 09/26/ | Office | [facility] | Christopher Simms, | Chest pain, | | 2017 | Visit | CARDIOLOGY [address] | [address] | unspecified type | | | | [place], | [place], | (Primary Dx) | | | | [place] [address] | [place] [address] | | | | | [phone] | [phone] | | | | | | | [...] procedure. 6. Make sure you have a river driver to take you home. Your river driver will also need to sign you [...] hospital line at and ask for nursing forklift supervisor t o let them know you [...] she was seen at the ED of [facility] in [place] because of the severe substernal chest pressure. She described it as a chest pressure like "bricks on my chest", 12/19 that r adiated to the back and shoulder. Patient is physically active and exercises regularly by a quatic exercises at the [employer] up to 3 times weekly. Patient also [...] reviewed during visit today primarily from [facility]: LIPID Lab Results Component Value [...] PLTEX 370 09/18/2016 I reviewed records from [facility] for emergency department visit on 09/18/16 which is summarized in the HPI. Above data and testing is reviewed this visit; testing below is historical data unless othe rwise specified. ASSESSMENT: 1. Chest pain/chest pressure: A. Seen at [facility] they had EKG and sent her home stating it was GERD B. Seen in the emergency room at [facility] for chest pain. She was schedule for stre ss test and discharged home. C. Stress Test 05/16/16, is maximal asymptomatic stress test, [facility] er very poor function status, [...] failure.She is in a class I of [employer] sociation functional class. There is [...] statins at this point. PLAN: 1. Recommended [facility] right radial approach to rule out [...] 11:15 Electronically signed by: Christopher Simms MD [facility] 09/26/2016 Portions of this chart may have been created with [employer] voice recognition software. Occasi onal wrong-word or [...] STREETER | | | | | | [address] | | | | | | | | +--------+---------+ + + + | 11/21/ | Office | Cardiology | Yesi, | | | 2019 | Visit | | JOSE ALBERTO Linder [address] | | | | | | [place], | | | | | | [place] [address] | | | | | | [phone] | | | | | | | [...] MD | | | | | | ([id number]) on 09/26/2016 | | | | | [...]
--- OUTSIDE RECORDS SUMMARY | ~2019-05-18 | XMS | Encounter Summary ---
Demographics + + + | Address | [address] | | | [place] [address] | + + + | Home Phone [...] + | Author | [facility] | | | and Ohana | + + + | Organization | [facility] | [...] | | | | | [place] [address] | | + + + + + | Hunter Jackson | ECON | [place], [place] | | + + + + + | Wes Jackson | ECON | [place], [place] | | + + + + + | Oziel Jackson | ECON | [place], [place] | | + + + + + Care Team Providers + +------+ + | Care Blood Bank Technologist Name | Role | Phone | [...] 07/08/ | Telephone | [facility] [place] | [place], | Chest Pain | | 2016 | | CARDIOLOGY [address] | JOSE ALBERTO Linder [address] | | | | | [place], | [place], | | | | | [place] [address] | [place] [address] | | | | | [phone] | [phone] | | | | | | | [...] STREETER | | | | | | [address] | | | | | | | | +--------+---------+ + + + | 11/21/ | Office | Cardiology | Yesi | | | 2019 | Visit | | JOSE ALBERTO Linder [address] | | | | | | [place] | | | | | | [place] [address] | | | | | | [phone] | | | | | | | | +--------+---------+ + + + documented as of this encounter Visit Diagnoses Not on filedocumented in this encounter"
--- OUTSIDE RECORDS SUMMARY | ~2019-05-18 | XMS | Encounter Summary ---
Demographics + + + | Address | [address] | | | [place] [address] | + + + | Home Phone [...] | Author | [facility] | | | and [place]ana | + + + | Organization | [facility] [...] | | | | | [place] [address] | | + + + + + | Hunter Jackson | ECON | [place] | | + + + + + | Wes Jackson | ECON | [place], [place] | | + + + + + | Oziel Jackson | ECON | [place], [place] | | + + + + + Care Team Providers + +------+ + | Care Table Inspector Name | Role | Phone | [...] + | 07/08/ | Office | [facility] | Rodolfo Cruz, | Hyperlipidemia | | 2014 | Visit | MEDICINE [place] | [address] | (Primary Dx); | | | | [address] | [place] | Hypothyroidism; | | | | [place], [place] | [address] | Hypertension; DJD | | | | [address] | | (degenerative joint | | | | [phone] | | disease); Asthma; | | | [...] and no changes required: Born in [facility] since 1965 Marital status: Children: 6, 5 living, 10 grandchildren 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
--- OUTSIDE RECORDS SUMMARY | ~2019-05-18 | XMS | Encounter Summary ---
Demographics + + + | Address | [address] | | | [place] [address] | + + + | Home Phone [...] | [facility] | | | and [place] | + + + | Organization | [facility] | | [...] | | | | | [place] [address] | | + + + + + | Hunter Jackson | ECON | [place] | | + + + + + | Wes Jackson | ECON | [place], [place] | | + + + + + | Oziel Jackson | ECON | [place], [place] | | + + + + + Care Team Providers + +------+ + | Care Software Packager Name | Role | Phone | + [...] | [address] | | | | | [address] | | | | | | [phone] | | | +--------+--------+ + + + [...] | | | | | | [place] | | | | | | [place] [address] | | | | | | [phone] | | | | | | | | +--------+---------+ + + + documented as of this encounter Visit Diagnoses Not on filedocumented in this encounter"
--- OUTSIDE RECORDS SUMMARY | ~2019-05-18 | XMS | Encounter Summary ---
Demographics + + + | Address | [address] | | | [place] [address] | + + + | Home Phone [...] Author | [facility] | | | and [place] | + + + | Organization | [facility] [...] SWAIN | | | | | [place] [address] | | + + + + + | Hnuter Jackson | ECON | [place] | | + + + + + | Wes Jackson | ECON | [place], [place] | | + + + + + | Oziel Jackson | ECON | [place], [place] | | + + + + + Care Team Providers + +------+ + | Care Architecture Intern Name | Role | Phone | [...] | 07/07/ | Telephone | [facility] [place] | Yesi, | Other | | 2017 | | BECCA [address] | JOSE ALBERTO Linder [address] | | | | | [place], | [place], | | | | | [place] [address] | [place] [address] | | | | | [phone] | [phone] | | | | | | | [...] STREETER | | | | | | [address] | | | | | | | | +--------+---------+ + + + | 11/21/ | Office | Cardiology | Yesi | | | 2019 | Visit | | JOSE ALBERTO Linder [address] | | | | | | [place] | | | | | | [place] [address] | | | | | | [phone] | | | | | | | | +--------+---------+ + + + documented as of this encounter Visit Diagnoses Not on filedocumented in this encounter"
--- OUTSIDE RECORDS SUMMARY | ~2019-05-18 | XMS | Encounter Summary ---
Demographics + + + | Address | [address] | | | [place] [address] | + + + | Home Phone [...] | [facility] | | | and [place]ana | + + + | Organization | [facility] | [...] | | | | | [place] [address] | | + + + + + | Hunter Jackson | ECON | [place] | | + + + + + | Wes Jackson | ECON | [place], [place] | | + + + + + | Oziel Jackson | ECON | [place], [place] | | + + + + + Care Team Providers + +------+ + | Care Business Systems Administrator Name | Role | Phone | [...] + + | 08/16/ | Telephone | [facility] | Rodolfo Cruz, | Lab Order | | 2015 | | MEDICINE [facility] [address] | MD [address] | | | | | [address] [place] | [place] | | | | | [place] [address] | [address] | | | | | [phone] | | | +--------+ + + + [...] | | | | | | [place] [address] | | | | | | [phone] | | | | | | | | +--------+---------+ + + + documented as of this encounter Visit Diagnoses Not on filedocumented in this encounter"
--- OUTSIDE RECORDS SUMMARY | ~2019-05-18 | XMS | Encounter Summary ---
Demographics + + + | Address | [address] | | | [place] [address] | + + + | Home Phone [...] + + | Author | [facility] | | | and [place] | + + + | Organization | [facility] | [...] | | | | | [place] [address] | | + + + + + | Hunter Jackson | ECON | [place] | | + + + + + | Wes Jacksno | ECON | [place], [place] | | + + + + + | Oziel Jackson | ECON | [place], [place] | | + + + + + Care Team Providers + +------+ + | Care Highway Construction Inspector Name | Role | Phone | [...] + + | 11/08/ | Telephone | [facility] | Rodolfo Cruz, | Imaging Only (CT | | 2013 | | MEDICINE [address] | [address] | chest ab/pelvis with | | | | Street [place] | [place], [place] | contrast) | | | | [place] [address] | [address] | | | | | [phone] | | | +--------+ + + + [...] STREETER | | | | | | [address] | | | | | | | | +--------+---------+ + + + | 11/21/ | Office | Cardiology | Yesi | | | 2019 | Visit | | JOSE ALBERTO Linder [address] | | | | | | [place] | | | | | | [place] [address] | | | | | | [phone] | | | | | | | | +--------+---------+ + + + documented as of this encounter Visit Diagnoses Not on filedocumented in this encounter"
--- OUTSIDE RECORDS SUMMARY | ~2019-05-18 | XMS | Encounter Summary ---
Demographics + + + | Address | [address] | | | [place] [address] | + + + | Home Phone [...] Author | [facility] | | | and [place] | + + + | Organization | [facility] [...] | | | | | [place] [address] | | + + + + + | Hunter Jackson | ECON | [place] | | + + + + + | Wes Jackson | ECON | [place], [place] | | + + + + + | Oziel Jackson | ECON | [place], [place] | | + + + + + Care Team Providers + +------+ + | Care Warehouse Coordinator Name | Role | Phone | [...] + + | 01/07/ | Telephone | [facility] | Rodolfo Cruz, | Lab Results | | 2016 | | MEDICINE [facility] [place] | MD [address] | | | | | [place] | [place] [address] | | | | | [place] [address] | [address] | | | | | [phone] | | | +--------+ + + + [...] | | | | | | [place] [address] | | | | | | [phone] | | | | | | | | +--------+---------+ + + + documented as of this encounter Visit Diagnoses Not on filedocumented in this encounter"
--- OUTSIDE RECORDS SUMMARY | ~2019-05-18 | XMS | Encounter Summary ---
Demographics + + + | Address | [address] | | | [place] [address] | + + + | Home Phone [...] | [facility] | | | and [place] | + + + | Organization | [facility] | [...] | | | | | [place] [address] | | + + + + + | Hunter Jackson | ECON | [place] | | + + + + + | Wes Jackson | ECON | [place], [place] | | + + + + + | Oziel Jackson | ECON | [place], [place] | | + + + + + Care Team Providers + +------+ + | Care Registry Rn Name | Role | Phone | [...] + + | 03/15/ | Office | [facility] | Rodolfo Cruz, | Upper respiratory | | 2015 | Visit | MEDICINE [facility] [place] | MD [address] | tract infection, | | | | Street [place] | [place], [place] | unspecified upper | | | | [place] [address] | [address] | respiratory | | | | [phone] | | infection (Primary | | | [...] W | | | | | | [place], | | | | | | [place] [address] | | | | | | [phone] | | | | | | | [...]
--- OUTSIDE RECORDS SUMMARY | ~2019-05-18 | XMS | Encounter Summary ---
Demographics + + + | Address | [address] | | | [place] [address] | + + + | Home Phone [...] Author | [facility] | | | and [place] | + + + | Organization | [facility] | | [...] | | | | | [place] [address] | | + + + + + | Hunter Jackson | ECON | [place] | | + + + + + | Wes Jackson | ECON | [place], [place] | | + + + + + | Oziel Jackson | ECON | [place], [place] | | + + + + + Care Team Providers + +------+ + | Care Production Assembly Supervisor Name | Role | Phone [...] + + | 04/20/ | Telephone | [facility] | Rodolfo Cruz, | Appointment | | 2013 | | MEDICINE [address] [place] [address] | MD [address] | | | | | [address] | [place] [address] | | | | | [place] [address] | [address] | | | | | [phone] | | | +--------+ + + + [...] | | | | | | [place] [address] | | | | | | [phone] | | | | | | | | +--------+---------+ + + + documented as of this encounter Visit Diagnoses Not on filedocumented in this encounter"
--- OUTSIDE RECORDS SUMMARY | ~2019-05-18 | XMS | Encounter Summary ---
Demographics + + + | Address | [address] | | | [place] [address] | + + + | Home Phone | | + + + | Preferred Language | Unknown | + + + | Marital Status | Single | + + + | Methodist Affiliation | Unknown | + + + | Race | Unknown | + + + | Ethnic Group | Other Race | + + + Author + + + | Author | [facility] | + + + | Organization | [facility] | + + + | Address | Unknown | + + + | Phone | Unavailable | + + + Support + + +---------+ + | Name | Relationship | Address | Phone | + + +---------+ + | None None | ECON | Unknown | Unavailable | + + +---------+ + Care Team Providers + +------+ + | Care Nursing Instructor Name | Role | Phone | [...] [id number] | | | | | | [place], [place] | | | | | | [address] | | | | | | [phone] | | | +--------+ + + + [...] + + | REFERRAL | Referred to [facility] | | [facility] | | | LAB NAME | [facility] [place] | | DEPARTMENT | | | | [...] | + + + + + | [facility] DEPARTMENT OF | [address] [facility] | [place] [address] | | | PATHOLOGY | [address] | | | + + + + + | [facility] DEPARTMENT OF | [address] [facility] | [place] [address] | | | PATHOLOGY | [address] [...] | | | | | punch biopsy ([id number]) | | | | | | (outside [...] the | | | | | | [facility] | | | | | | ([id number]) show no | | | | | [...] number | | | | | | [id number], with | | | | | | [...] | | | | | bcl-2 staining. [id number] | | | | | | confirms [...] | | | | increase in CD4. [place] | | | | | | and [...] | + + + + + | [facility] DEPARTMENT OF | [address] | [place] [address] | | | PATHOLOGY | [address] | | | + + + + + | [facility] DEPARTMENT OF | [address] | [place] [address] | | | PATHOLOGY | [address] | | | + + + + + documented in this encounter Visit Diagnoses Not on filedocumented in this encounter
--- OUTSIDE RECORDS SUMMARY | ~2019-05-18 | XMS | Encounter Summary ---
Demographics + + + | Address | [address] | | | [place] [address] | + + + | Home Phone [...] | Author | [facility] | | | and [place] | + + + | Organization | [facility] | | [...] | | | | | [place] [address] | | + + + + + | Hunter Jackson | ECON | [place] | | + + + + + | Wes Jackson | ECON | [place], [place] | | + + + + + | Oziel Jackson | ECON | [place], [place] | | + + + + + Care Team Providers + +------+ + | Care Solar Pv Installer Name | Role | Phone | [...] + | 09/29/ | Telephone | [facility] | Rodolfo Cruz, | Referral | | 2012 | | [facility] | [address] | (PreAuthorization) | | | | [address] | [place] [address] | | | | | [place] | [address] | | | | | [address] | | | | | | [phone] | | | +--------+ + + + [...] | | | | | | [place] [address] | | | | | | [phone] | | | | | | | | +--------+---------+ + + + documented as of this encounter Visit Diagnoses Not on filedocumented in this encounter"
--- OUTSIDE RECORDS SUMMARY | ~2019-05-18 | XMS | Encounter Summary ---
Demographics + + + | Address | [address] | | | [place] [address] | + + + | Home Phone [...] + + | Author | [facility] | | | and [place] | + + + | Organization | [facility] | | [...] | | | | | [place] [address] | | + + + + + | Hunter Jackson | ECON | [place] | | + + + + + | Wes Jackson | ECON | [place], [place] | | + + + + + | Oziel Jackson | ECON | [place], [place] | | + + + + + Care Team Providers + +------+ + | Care Tile And Marble Setter Name | Role | Phone | [...] + + | 02/16/ | Telephone | [facility] | Rodolfo Cruz, | Appointment | | 2013 | | MEDICINE [address] [place] [address] | MD [address] | | | | | [address]reet [address] | [place] [address] | | | | | [place] [address] | [address] | | | | | [phone] | | | +--------+ + + + [...] | | | | | | [place] [address] | | | | | | [phone] | | | | | | | | +--------+---------+ + + + documented as of this encounter Visit Diagnoses Not on filedocumented in this encounter"
--- OUTSIDE RECORDS SUMMARY | ~2019-05-18 | XMS | Encounter Summary ---
Demographics + + + | Address | [address] | | | [place] [address] | + + + | Home Phone [...] | Author | [facility] | | | and [place]ana | + + + | Organization | [facility] | | [...] | | | | | [place] [address] | | + + + + + | Hunter Jackson | ECON | [place] | | + + + + + | Wes Jackson | ECON | [place], [place] | | + + + + + | Oziel Jackson | ECON | [place], [place] | | + + + + + Care Team Providers + +------+ + | Care Aluminum Polisher Name | Role | Phone | [...] + + | 11/04/ | Telephone | [facility] | Rodolfo Cruz, | Other | | 2014 | | MEDICINE [facility] | MD [address] | | | | | [address] | [place] | | | | | [place] [address] | [address] | | | | | [phone] | | | +--------+ + + + [...] STREETER | | | | | | [address] | | | | | | | | +--------+---------+ + + + | 11/21/ | Office | Cardiology | Yesi, | | | 2019 | Visit | | JOSE ALBERTO [address]inder [address] | | | | | | [place] | | | | | | [place] [address] | | | | | | [phone] | | | | | | | | +--------+---------+ + + + documented as of this encounter Visit Diagnoses Not on filedocumented in this encounter"
--- OUTSIDE RECORDS SUMMARY | ~2019-05-18 | XMS | Encounter Summary ---
Demographics + + + | Address | [address] | | | [place] [address] | + + + | Home Phone [...] | Author | [facility] | | | and [place] | + + + | Organization | [facility] [...] [place] | | | | | [place] [address] | | + + + + + | Hunter Jackson | ECON | [place] | | + + + + + | Wes Jackson | ECON | [place], [place] | | + + + + + | Oziel Jackosn | ECON | [place], [place] | | + + + + + Care Team Providers + +------+ + | Care Log Haul Operator Name | Role | Phone | [...] mixed (Primary Dx); | | | | [place], | [place], | Valvular heart | | | | [place] [address] | [place] [address] | disease; Murmur; | | | | [phone] | [phone] | Essential | | | | | [...] involving | | | | | | the [place] coronary | | | | | | artery of the [place] | | | | | | heart [...] : 1935: AGE: 81 y.o. PRIMARY CARE: FLROA Morgan OUTPATIENT FOLLOW UP VISIT Date of [...] cervical Cervical radiculopathy Coronary artery disease involving the [place] coronary artery of the [place] heart with unstable angina pectoris Stress hyperglycemia [...] Interval:140 ms P Duration:140 ms P Horizontal [place]:-43 deg P Front [place]:60 deg Q Onset:514 ms QRSD Interval:78 ms QT Interval:384 ms QTcB:426 ms QTcF:412 ms QRS Horizontal [place]:3 deg QRS [place]:21 deg I-40 Horizontal [place]:-8 deg I-40 Front [place]:15 deg T-40 Horizontal [place]:-6 deg T-40 Front [place]:22 deg T Horizontal [place]:44 deg T Wave [place]:12 deg S-T Horizontal [place]:42 deg S-T Front [place]:22 deg Severity:- BORDERLINE ECG - INTERP:SINUS RHYTHM INTERP:PROBABLE LEFT ATRIAL ABNORMALITY Electronically signed by: PATRICK BURKETT 11-09-2016 13:17:14 LAB RESULTS reviewed during visit today primarily [facility]: LIPID Lab Results Component Value Date CHOL [...] PLTEX 370 09/18/2016 I reviewed records from [facility] for office visit on 02/03/2017 w hich is summarized in the HPI. Above data and testing is reviewed this visit; testing below is historical data unless othe rwise specified. ASSESSMENT: 1. Coronary artery disease A. Seen at [facility] they had EKG and sent her home stating it was GERD B. Seen in the emergency [facility] at [facility] for chest pain. She was schedule for stre ss test and discharged home. C. Stress Test 05/16/16, is maximal asymptomatic stress test, [facility] very poor function status, [...] central AI, no , trace [place], trace [place], normal aorta other than mild c alcification [...] failure.She is in a class I of [place] [employer] f unctional class.on physical examination [...] this chart may have been created with [employer] voice recognition software. Occasi onal wrong-word or [...] STREETER | | | | | | [id number] | | | | | | | | +--------+---------+ + + + | 11/21/ | Office | Cardiology | Yesi, | | 2019 | Visit | | JOSE ALBERTO Linder [address] | | | | | | [place], | | | | | | [place] [address] | | | | | | [phone] | | | | | | | [...] pressures of lower extremities. | | | |[facility] | |Greater than 1.4: Calcification/vessel hardening, [...] + + | Coronary artery disease involving the [place] coronary artery of the [place] heart with unstable | | angina pectoris (HCC) | + + | Transient cerebral ischemia, unspecified type | + + documented in this encounter
--- OUTSIDE RECORDS SUMMARY | ~2019-05-18 | XMS | Encounter Summary ---
Demographics + + + | Address | [address] | | | [place] [address] | + + + | Home Phone [...] | Author | [facility] | | | and [place] | + + + | Organization | [facility] | | [...] SWAIN | | | | | [place] [address] | | + + + + + | Hunter Jackson | ECON | [place] | | + + + + + | Wes Jackson | ECON | [place], [place] | | + + + + + | Oziel Jackson | ECON | [place], [place] | | + + + + + Care Team Providers + +------+ + | Care [employer] Name | Role | Phone | + +------+ + | Gunderson, Kellie PA | PCP | | + +------+ + Encounter Details +--------+ + + + + | Date | Type | Department | Care Team | Description | +--------+ + + + + | 05/09/ | Imaging | [facility] | Provider, | | | 2016 | Exam | MED CTR EXTERNAL | MD [address] | | | | | IMAGING | Grecia KLEIN | | | | | [phone] | [place] [address] | | +--------+ + + + + [...] STREETER | | | | | | [address] | | | | | | | | +--------+---------+ + + + | 11/21/ | Office | Cardiology | Yesi, | | | 2019 | Visit | | JOSE ALBERTO Linder [address] | | | | | | [place], | | | | | | [place] [address] | | | | | | [phone] | | | | | | | [...]
--- OUTSIDE RECORDS SUMMARY | ~2019-05-18 | XMS | Encounter Summary ---
Demographics + + + | Address | [address] | | | [place] [address] | + + + | Home Phone [...] | Author | [facility] | | | and [place] | + + + | Organization | [facility] | [...] SWAIN | | | | | [place] [address] | | + + + + + | Hunter Jackson | ECON | [place] | | + + + + + | Wes Jackson | ECON | [place], [place] | | + + + + + | Oziel Jackson | ECON | [place], [place] | | + + + + + Care Team Providers + +------+ + | Care Risk Control Officer Name | Role | Phone | [...] | CARDIOLOGY [address] | MD [address] [place] | | | | | [place], | [place], | | | | | [place] [address] | [place] [address] | | | | | [phone] | [phone] | | | | | | | [...] STREETER | | | | | | [address] | | | | | | | | +--------+---------+ + + + | 11/21/ | Office | Cardiology | Yesi, | | | 2019 | Visit | | JOSE ALBERTO Linder [address] | | | | | | [place] | | | | | | [place] [address] | | | | | | [phone] | | | | | | | | +--------+---------+ + + + documented as of this encounter Visit Diagnoses Not on filedocumented in this encounter"
--- OUTSIDE RECORDS SUMMARY | ~2019-05-18 | XMS | Encounter Summary ---
Demographics + + + | Address | [address] | | | [place] [address] | + + + | Home Phone [...] + | Author | [facility] | | | and [place] | + + + | Organization | [facility] [...] SWA[place] | | | | | [place] [address] | | + + + + + | Hunter Jackson | ECON | [place] | | + + + + + | Wes Jackson | ECON | [place], [place] | | + + + + + | Oziel Jackson | ECON | [place], [place] | | + + + + + Care Team Providers + +------+ + | Care Sales Representative Business Courses Name | Role | Phone | + [...] + + | 03/22/ | Telephone | [facility] | Kellie Gunderson PA | New Patient | | 2019 | | [facility] | [address] [facility] | | | | | [address] | [address] [place], [place] | | | | | [place] | [address] | | | | | [address] | | | | | | [phone] | | | +--------+ + + + [...] | | | | | | [place] [address] | | | | | | [phone] | | | | | | | | +--------+---------+ + + + documented as of this encounter Visit Diagnoses Not on filedocumented in this encounter"
--- OUTSIDE RECORDS SUMMARY | ~2019-05-18 | XMS | Encounter Summary ---
Demographics + + + | Address | [address] | | | [place] [address] | + + + | Home Phone [...] + | Author | [facility] | | | and [place] | + + + | Organization | [facility] [...] SWA[place] | | | | | [place] [address] | | + + + + + | Hunter Jackson | ECON | [place] | | + + + + + | Wes Jackson | ECON | [place], [place] | | + + + + + | Oziel Jackson | ECON | [place], [place] | | + + + + + Care Team Providers + +------+ + | Care Trolley Operator Name | Role | Phone | [...] [address] [facility] | carpometacarpal | | | | [address] [facility] | [facility] | ([facility]) joint of right | | | | [place], [place] | [address] | thumb (Primary Dx); | | | | [address] | | Rotator cuff tear | | | | [phone] | | arthropathy of right | | [...] [place] | | | | | | [address] | | | | | | | | +--------+---------+ + + + | 11/21/ | Office | Cardiology | Yesi, | | | 2019 | Visit | | JOSE ALBERTO Linder [address] | | | | | | [place], | | | | | | [place] [address] | | | | | | [phone] | | | | | | | [...]
--- OUTSIDE RECORDS SUMMARY | ~2019-05-18 | XMS | Encounter Summary ---
Demographics + + + | Address | [address] | | | [place] [address] | + + + | Home Phone [...] | Author | [facility] | | | and [place] | + + + | Organization | [facility] [...] | | | | | [place] [address] | | + + + + + | Hunter Jackson | ECON | [place] | | + + + + + | Wes Jackson | ECON | [place], [place] | | + + + + + | Oziel Jackson | ECON | [place], [place] | | + + + + + Care Team Providers + +------+ + | Care Steel Analyst Name | Role | Phone | + +------+ + PCP | Unavailable | + +------+ + Encounter Details +--------+ + + + + | Date | Type | Department | Care Team | Description | +--------+ + + + + | 04/04/ | [facility] | [facility] | Rodolfo Cruz, | | | 2008 | Encounter | MED CTR XRAY [address] | [address] | | | | | [place] | [place], [place] | | | | | [place] [address] | [address] | | | | | [phone] | | | +--------+ + + + [...] | | | | | | [place] [address] | | | | | | [phone] | | | | | | | | +--------+---------+ + + + documented as of this encounter Visit Diagnoses Not on filedocumented in this encounter"
--- OUTSIDE RECORDS SUMMARY | ~2019-05-18 | XMS | Encounter Summary ---
Demographics + + + | Address | [address] | | | [place] [address] | + + + | Home Phone [...] Author | [facility] | | | and [place] | + + + | Organization | [facility] | [...] | | | | | [place] [address] | | + + + + + | Hunter Jackson | ECON | [place] | | + + + + + | Wes Jackson | ECON | [place], [place] | | + + + + + | Oziel Jackson | ECON | [place], [place] | | + + + + + Care Team Providers + +------+ + | Care Jewel Staker Name | Role | Phone | + [...] + + | 01/07/ | Telephone | [facility] | Rodolfo Cruz, | Lab Results | | 2016 | | MEDICINE [facility] Sravan | MD [address] | | | | | [place] | [place] [address] | | | | | [place] [address] | [address] | | | | | [phone] | | | +--------+ + + + [...] | | | | | | [place] [address] | | | | | | [phone] | | | | | | | | +--------+---------+ + + + documented as of this encounter Visit Diagnoses Not on filedocumented in this encounter"
--- OUTSIDE RECORDS SUMMARY | ~2019-05-18 | XMS | Encounter Summary ---
Demographics + + + | Address | [address] | | | [place] [address] | + + + | Home Phone [...] Author | [facility] | | | and [place] | + + + | Organization | [facility] [...] | | | | | [place] [address] | | + + + + + | Hunter Jackson | ECON | [place] | | + + + + + | Wes Jackson | ECON | [place], [place] | | + + + + + | Oziel Jackson | ECON | [place], [place] | | + + + + + Care Team Providers + +------+ + | Care Driver Education Instructor Name | Role | Phone | [...] + + | 02/16/ | Telephone | [facility] | Rodolfo Cruz, | Appointment | | 2013 | | MEDICINE [address] [place] [address] | MD [address] | | | | | Preet Menchaca | [place] [address] | | | | | [place] [address] | [address] | | | | | [phone] | | | +--------+ + + + [...] | | | | | | [place] [address] | | | | | | [phone] | | | | | | | | +--------+---------+ + + + documented as of this encounter Visit Diagnoses Not on filedocumented in this encounter"
--- OUTSIDE RECORDS SUMMARY | ~2019-05-18 | XMS | Encounter Summary ---
Demographics + + + | Address | [address] | | | [place] [address] | + + + | Home Phone [...] | Author | [facility] | | | and [place] | + + + | Organization | [facility] | [...] | | | | | [place] [address] | | + + + + + | Hunter Jackson | ECON | [place] | | + + + + + | Wes Jackson | ECON | [place], [place] | | + + + + + | Oziel Jackson | ECON | [place], [place] | | + + + + + Care Team Providers + +------+ + | Care Headlight Assembler Name | Role | Phone | [...] 2013 | | SLEEP DISORDER [address] | FLORAL DESIGNER SALESPERSON | | | | | [address] | | | | | | [place] [address] | | | | | | [phone] | | | +--------+ + + + [...] STREETER | | | | | | [address] | | | | | | | | +--------+---------+ + + + | 11/21/ | Office | Cardiology | Yesi, | | | 2020 | Visit | | JOSE ALBERTO Linder [address] | | | | | | [place], | | | | | | [place] [address] | | | | | | [phone] | | | | | | | | +--------+---------+ + + + documented as of this encounter Visit Diagnoses Not on filedocumented in this encounter"
--- OUTSIDE RECORDS SUMMARY | ~2019-05-18 | XMS | Encounter Summary ---
Demographics + + + | Address | [address] | | | [place] [address] | + + + | Home Phone [...] | [facility] | | | and [place] | + + + | Organization | [facility] [...] S[place] | | | | | [place] [address] | | + + + + + | Hunter Jackson | ECON | [place] | | + + + + + | Wes Jackson | ECON | [place], [place] | | + + + + + | Oziel Jackson | ECON | [place], [place] | | + + + + + Care Team Providers + +------+ + | Care Bulk Cooler Installer Name | Role | Phone | [...] + + | 04/28/ | Office | [facility] | Ulysses Jensen, | Arthritis of | | 2017 | Visit | ORTHOPEDIC SURGERY | MD Danny FLANNERY | carpometacarpal | | | | [address] | [place] [address] | (CMC) joint of right | | | | [place] | [address] | thumb (Primary Dx); | | | | [address] | | Rotator cuff tear | | | | [phone] | | arthropathy of right | | [...] [place] | | | | | | [address] | | | | | | | | +--------+---------+ + + + | 11/21/ | Office | Cardiology | Yesi, | | | 2019 | Visit | | JOSE ALBERTO Linder [address] | | | | | | [place], | | | | | | [place] [address] | | | | | | [phone] | | | | | | | [...]
--- OUTSIDE RECORDS SUMMARY | ~2019-05-18 | XMS | Encounter Summary ---
Demographics + + + | Address | [address] | | | [place] [address] | + + + | Home Phone [...] Author | [facility] | | | and [place] | + + + | Organization | [facility] [...] [place] | | | | | [place] [address] | | + + + + + | Hunter Jackson | ECON | [place] | | + + + + + | Wes Jackson | ECON | [place], [place] | | + + + + + | Oziel Jackson | ECON | [place], [place] | | + + + + + Care Team Providers + +------+ + | Care Supervisor Aircraft Cleaning Name | Role | Phone | + [...] | [address] | [place] [address] | | | | | [place], [place] | [phone] | | | | | [address] | | | | | | [phone] | | | +--------+ + + + [...] | | | | | | [place] [address] | | | | | | [phone] | | | | | | | | +--------+---------+ + + + documented as of this encounter Visit Diagnoses Not on filedocumented in this encounter"
--- OUTSIDE RECORDS SUMMARY | ~2019-05-18 | XMS | Encounter Summary ---
Demographics + + + | Address | [address] | | | [place] [address] | + + + | Home Phone | | + + + | Preferred Language | Unknown | + + + | Marital Status | Single | + + + | Shinto Affiliation [...] Providers + +------+ + | Care Security Architect Name | Role | Phone | + +------+ + PCP | Unavailable | + +------+ + Encounter Details +--------+ + + + + | Date | Type | Department | Care Team | Description | +--------+ + + + + | 04/03/ | Results | | Other, Faculty | | | 2004 | Only | | [phone] | | +--------+ + + + + [...] | | Results for this | | [facility]) | e | | | procedure are in the | | | | | | results section. | + +--------+ + + + | DERMATOPATHOLOGY(WET | Routin | 04/03/2005 | | Results for this | | [facility]) | e | | | procedure are in the | | | | | | results section. | + +--------+ + + + documented in this encounter Results DERMATOPATHOLOGY(WET [facility]) (05/22/2005) + + + + + + | Component | Value | Ref Range | Performed | Pathologist | | | | | At | Signature | + + + + + + | DERMATOPATH | SOURCE OF SPECIMEN:A | | | | | OLOGY(WET | FIRST TISSUE LEVEL IV | | | | | MNT) | [address] CLINICAL | | | | | | [...] [facility] | [address], [address] | [place] [address] | | | DERMATOPATHOLOGY | [address] [...] | | | | | MNT) | [address] CLINICAL | | | | | | [...] KULDIP | Rich MCCORMICK, [address] | [place] [id number] | | | DERMATOPATHOLOGY | [address] | | | + + + + + documented in this encounter Visit Diagnoses Not on filedocumented in this encounter"
--- OUTSIDE RECORDS SUMMARY | ~2019-05-18 | XMS | Encounter Summary ---
Demographics + + + | Address | [address] | | | [place] [address] | + + + | Home Phone [...] | [facility] | | | and [place] | + + + | Organization | [facility] | [...] | | | | | [place] [address] | | + + + + + | Hunter Jackson | ECON | [place] | | + + + + + | Wes Jackson | ECON | [place], [place] | | + + + + + | Oziel Jackson | ECON | [place], [place] | | + + + + + Care Team Providers + +------+ + | Care Police Liaison Officer Name | Role | Phone | + +------+ + | Rodolfo Cruz MD | PCP | | + +------+ + Encounter Details +--------+ + + + + | Date | Type | Department | Care Team | Description | +--------+ + + + + | 05/08/ | Hospital | [facility] | Beatriz Faust | | | 2010 | Encounter | MED CTR LABORATORY | DO Danny Padron | | | | | [address] [facility] | [place], [place] | | | | | [place], [place] | [address] | | | | | [address] | | | | | | [phone] | | | +--------+ + + + [...] | | | | | | [place] [address] | | | | | | [phone] | | | | | | | [...] [address] | [place] | [phone] | | [facility] | | [address] | | | - LABORATORY | | | | + + + + + | [address] | [address] | [place], [place] | | | [facility] | | [address] | | | - LABORATORY | | [...] | [address] | [address] | [place], [place] | [phone] | | [facility] | | [address] | | | - LABORATORY | | | | + + + + + | [facility] | [address] | [place], [place] | | | [facility] | | [address] | | | - LABORATORY | | [...] | + + + + + | [address] [facility] | [address] | [place], [place] | [phone] | | [facility] | | [address] | | | - LABORATORY | | | | + + + + + | [facility] | [address] | [place], [place] | | | [facility] | | [address] | | | - LABORATORY | | | | + + + + + documented in this encounter Visit Diagnoses Not on filedocumented in this encounter"
--- OUTSIDE RECORDS SUMMARY | ~2019-05-18 | XMS | Encounter Summary ---
Demographics + + + | Address | [address] | | | [place] [address] | + + + | Home Phone [...] Author | [facility] | | | and [place] | + + + | Organization | [facility] [...] | | | | | [place] [address] | | + + + + + | Hunter Jackson | ECON | [place] | | + + + + + | Wes Jackson | ECON | [place], [place] | | + + + + + | Oziel Jackson | ECON | [place], [place] | | + + + + + Care Team Providers + +------+ + | Care Enamel Burner Name | Role | Phone | [...] + | 05/19/ | Office | [facility] | Rodolfo Cruz, | Asthma (Primary Dx); | | 2015 | Visit | MEDICINE [address] [place] [address] | MD [address] | Anemia; Essential | | | | Street [place] | [place] [facility] [place] | hypertension; | | | | [place] [address] | [address] | Hyperlipidemia; | | | | [phone] | | Bilateral thoracic | | | [...] our last visit, seen at ER in [place]. 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
--- OUTSIDE RECORDS SUMMARY | ~2019-05-18 | XMS | Encounter Summary ---
Demographics + + + | Address | [address] | | | [place] [address] | + + + | Home Phone [...] Author | [facility] | | | and [place] | + + + | Organization | [facility] [...] [place] | | | | | [place] [address] | | + + + + + | Hunter Jackson | ECON | [place] | | + + + + + | Wes Jackson | ECON | [place], [place] | | + + + + + | Oziel Jackson | ECON | [place], [place] | | + + + + + Care Team Providers + +------+ + | Care Supervisor Capacitor Processing Name | Role | Phone | + [...] + + | 09/26/ | Office | [facility] | Christopher Simms, | Chest pain, | | 2017 | Visit | CARDIOLOGY [address] | [address] | unspecified type | | | | [place], | [place], | (Primary Dx) | | | | [place] [address] | [place] [address] | | | | | [phone] | [phone] | | | | | | | [...] procedure. 6. Make sure you have a commercial relief driver to take you home. Your commercial relief driver will also need to sign you [...] hospital line at and ask for nursing fabrication supervisor t o let them know you [...] ED of [facility] in [place] because of the severe substernal chest pressure. She described it as a chest pressure like "bricks on my chest", 12/19 that r adiated to the back and shoulder. Patient is physically active and exercises regularly by a quatic exercises at the [employer] up to 3 times weekly. Patient also [...] reviewed during visit today primarily from [facility]: LIPID Lab Results Component Value Date [...] PLTEX 370 09/18/2016 I reviewed records from [facility] for emergency department visit on 09/18/16 which is summarized in the HPI. Above data and testing is reviewed this visit; testing below is historical data unless othe rwise specified. ASSESSMENT: 1. Chest pain/chest pressure: A. Seen at [facility] they had EKG and sent her home stating it was GERD B. Seen in the emergency room at [facility] for chest pain. She was schedule for stre ss test and discharged home. C. Stress Test 05/16/16, is maximal asymptomatic stress test, [facility] er very poor function status, [...] failure.She is in a class I of [facility] sociation functional class. There is [...] statins at this point. PLAN: 1. Recommended [facility] right radial approach to rule out [...] 11:15 Electronically signed by: Christopher Simms MD [facility] 09/26/2016 Portions of this chart may have been created with [employer] voice recognition software. Occasi onal wrong-word or [...] STREETER | | | | | | [address] | | | | | | | | +--------+---------+ + + + | 11/21/ | Office | Cardiology | Yesi, | | | 2019 | Visit | | JOSE ALBERTO Linder [address] | | | | | | [place], | | | | | | [place] [address] | | | | | | [phone] | | | | | | | [...] MD | | | | | | ([id number]) on 09/26/2016 | | | | | [...]
--- OUTSIDE RECORDS SUMMARY | ~2019-05-18 | XMS | Encounter Summary ---
Demographics + + + | Address | [address] | | | [place] [address] | + + + | Home Phone [...] | Author | [facility] | | | and [place] | + + + | Organization | [facility] | | [...] | | | | | [place] [address] | | + + + + + | Hunter Jackson | ECON | [place] | | + + + + + | Wes Jackson | ECON | [place], [place] | | + + + + + | Oziel Jackson | ECON | [place], [place] | | + + + + + Care Team Providers + +------+ + | Care Client Leader Name | Role | Phone | [...] + + | 03/15/ | Office | [facility] | Rodolfo Cruz, | Upper respiratory | | 2015 | Visit | MEDICINE [facility] Sravan | MD [address] | tract infection, | | | | Street [place] | [place], [place] | unspecified upper | | | | [place] [address] | [address] | respiratory | | | | [phone] | | infection (Primary | | | [...] W | | | | | | [place], | | | | | | [place] [address] | | | | | | [phone] | | | | | | | [...]
--- OUTSIDE RECORDS SUMMARY | ~2019-05-18 | XMS | Encounter Summary ---
Demographics + + + | Address | [address] | | | [place] [address] | + + + | Home Phone [...] | Author | [facility] | | | and [place] | + + + | Organization | [facility] | [...] | | | | | [place] [address] | | + + + + + | Hunter Jackson | ECON | [place] | | + + + + + | Wes Jackson | ECON | [place], [place] | | + + + + + | Oziel Jackson | ECON | [place], [place] | | + + + + + Care Team Providers + +------+ + | Care Hazardous Waste Management Specialist Name | Role | Phone [...] | Back pain | | [address] | | | | | Hypothyroidi | | [place], | | | | | sm | | [place] | | | | | Hypertension | | [address] | | | | | Asthma GI | | Phone: | | | | | bleed | | [phone] | | | | | Troponin | | Fax: | | | | | level | | [phone] | | | | | elevated | [...] + + | 11/03/ | Hospital | [facility] | Stanislav Michele, | GI bleed (Primary | | 2013 - | Encounter | [facility] | [address] | Dx); Troponin level | | | | [address] | [place] | elevated; Back pain; | | 11/05/ | | [place] [address] | [address] | Asthma; | | 2013 | | [phone] | | Hypertension; | | | | | Carranza, Yoel F, MD | Thoracic sprain and | | | | | [address] | strain, subsequent | | | | | [place], [place] | encounter; | | | | | [address] | Hypothyroidism; | | | | | [...] might be different fro m the original. [facility] DISCHARGE SUMMARY Pt. Name/Age/: Soumya Jackson [...] problems to display. 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 [DISCONTINUED] [facility] GARLIC OIL PO CAPS Take 1250 mg by mouth daily. [DISCONTINUED] diclofenac (VOLTAREN) 75 mg EC tablet TAKE ONE TABLET BY MOUTH TWICE A D AY 180 tablet 1 [DISCONTINUED] Fbjzrnlmwca-Ipcjhzdru-Yaf C-Mn ([facility]S GLUCOSAMINE-CHONDROITIN) TABS Take 1 tablet by mouth 2 times daily. [DISCONTINUED] KRILL OIL 1000 MG CAPS Take 1,000 mg by mouth Daily. [DISCONTINUED] metaxalone (SKELAXIN) 800 mg tablet Take 800 mg by mouth 3 times daily. 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 Got total 4 PRBC Troponin I above reference range EKG without ischemia. Mild troponin leak but well below threshold for IL. Echo EF 63%, no sig change versus [...] Mamogram and UPEP and Stress Test with sprinkler fitter helper OK to restart baby ASA NOT [...] appt) Contact information: [address] [facility] [address] Follow up with JOSE ALBERTO Marcelo. (Have Dr Cruz arrange an appt to see her in about a month from now) Contact information: [address], [address] [facility] [address] Condition: Patient being discharged with condition improved Dr Pandya recommends double dose of PPI for 1 month then single dose Thus Prilosec 20 mg bid X 1 month then can lower to 20 mg daily Diet: Regular Greater than 30 minutes were spent on discharge and coordination of post-hospital care. Electronically signed by: Yoel Carranza MD, 11/05/2013 13:26 [facility] Portions of this chart may have been created with [employer] voice recognition software. Occasi onal wrong-word or [...] might be different fro m the original. [facility] PROGRESS NOTE Patient: Soumya Jackson : 1935: Age: 78 y.o. MedRec: [id number] Admission date: 11/03/2013 Hospital day # : [...] -- No results found for this basename: PHART:3,PO2ART:3,MRR8AVO:3,SVE0TTL:3,BEART:3,R8JPZSKZ:3 in the last 168 hours No results found for this basename: SPECSOURCE:3,PHPOCB:3,IZOZI9RM:3,JONE1FJ:3,HCO3:3,TCO2: 3,BEART:3,BE:3,TZML7BHD:3 in the last 168 hours Point of [...] troponin leak but well below threshold for IL. Echo EF 63%, no sig change versus [...] Mamogram and UPEP and Stress Test with sprinkler fitter helper OK to restart baby ASA NOT restart Voltaren Advise appt with Merissa in GI clinic in about 1 month. Yoel Carranza MD 11/05/2013 13:14 [facility] Dot phrase reference: VSHOSP (VS in table, last 24 hours) MEYLAB (various labs to pull in) DT (date and time) LABRCNTIP[K:3,Na:3 (last 3 sets of labs using potassium and sodium as examples) HGB HCT PLT INR GLU POCGLU Na K BUN CREA, CALCIUM TROPONINI BNP DIGOXIN DDIMERQUANT Portions of this chart may have been created with [employer] voice recognition software. Occasi onal wrong-word or [...] 1 unit of PRBC transfused without reaction. [place] 1 tab given for lower back pain w ith good relief of pain. No active bleeding noted. odolfo Montes RRT - 11/04/2013 9:15 AM PDTPt not in roomEle ctronically signed by Rodolfo Montes RRT at 11/04/2013 2:44 PM Yoel Plaza MD - 7:17 AM PDT [facility] PROGRESS NOTE Patient: Soumya Jackson : 1935: Age: 78 y.o. MedRec: [id number] Admission date: 11/03/2013 Hospital day # : [...] mg 0.4-0.8 mg Intravenous Q2H PRN Yoel Carrnaza MD 0.5 mg at 11/03/13 1743 levothyroxine [...] -- No results found for this basename: PHART:3,PO2ART:3,YLJ6TSB:3,PHK1NLE:3,BEART:3,M7AZFMHN:3 in the last 168 hours No results found for this basename: SPECSOURCE:3,PHPOCB:3,OCYIO8HZ:3,OGPT0VF:3,HCO3:3,TCO2: 3,BEART:3,BE:3,TCXP5EJQ:3 in the last 168 hours Point of [...] troponin leak but well below threshold for IL. Echo EF 63%, no sig change versus [...] labs though) Yoel Carranza MD 11/04/2013 7:17 [facility] Dot phrase reference: VSHOSP (VS in table, last 24 hours) MEYLAB (various labs to pull in) DT (date and time) LABRCNTIP[K:3,Na:3 (last 3 sets of labs using potassium and sodium as examples) HGB HCT PLT INR GLU POCGLU Na K BUN CREA, CALCIUM TROPONINI BNP DIGOXIN DDIMERQUANT Portions of this chart may have been created with [employer] voice recognition software. Occasi onal wrong-word or [...] [place] | | | | | | [id number] | | | | | | | | +--------+---------+ + + + | 11/21/ | Office | Cardiology | Yesi, | | | 2019 | Visit | | JOSE ALBERTO Linder [address] | | | | [address] [place], | | | | | | [place] [address] | | | | | | [phone] | | | | | | | [...] + | MISCELLANEOUS LAB | | | [phone] | + +---------+ + + | MISCELANIOUS LAB | | | [phone] | + +---------+ + + CBC with [...] + | [facility] | [address] | [place] | [phone] | | [facility] | | [address] | | | - LABORATORY | | | | + + + + + | [facility] | [address] | [place] | | | [facility] | | [address] | | | - LABORATORY | | [...] | 0.64 | 0.60 - 1.30 | [facility] | | | | | mg/dL | [facility] | | | | | | MEDICAL | | | | | | CENTER - | | | | | | LABORATORY | | + + + + + + | eGFR if not | >60Comment: GLOMERULAR | >=60 | [facility] | | | | FILTRATION | mL/min/1.73m2 | [facility] | | | IRAQI | RATE,ESTIMATED | | MEDICAL | | | | mL/min/1.37j9Rlfi than | | CENTER - | | [...] + | [facility] | [address] | [place] | [phone] | | [facility] | | [address] | | | - LABORATORY | | | | + + + + + | [facility] | [address] | [place], [place] | | | [facility] | | [address] | | | - LABORATORY | | [...] + + + | UNIT # | [id number] | | [facility] | | | | [...] ST. | [address] | [place], [place] | | | [facility] | | [address] | | | - BLOOD BANK | [address] | [place] [facility] | [phone] | | [facility] | | [address] | | | - LABORATORY | | | | + + + + + | [facility] | [address] | [place] | | | [facility] | | [address] | | | - LABORATORY | | [...] + + + | UNIT # | [id number] | | [facility] | | | | [...] St | [place] [facility] | | | [facility] | | [address] | | | - BLOOD BANK | | | | + + + + + EGD (11/04/2013 8:39 AM PDT) + + | Specimen | + + | | + + + + -+ | Narrative | Performed At | + + -+ | | [facility] | | GastroenterologyPatient Name: Soumya Grimes Date: 11/04/2013 8:39 | [facility] | | AMN: [id number] #: [id number] of : 8Admit | | | Type: InpatientAge: 78Room: [facility] 02Gender: FemaleNote Status: | | | [...] the nurse | | | and the medical laboratory technicians in the 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 Mental Status | [...] | 0Note Initiated On: 11/04/2013 8:39 AM [facility] | | | [facility], [address] [place] [address] | | | [phone] | | | - Non-bleeding erosive gastropathy. [...] 11/04/2013 8:39 AM | | | [facility], [address] [place] [address] | | | [address] | | + + -+ + + [...] + + + | UNIT # | [id number] | | [facility] | | | | [...] St | [place] [facility] | | | [facility] | | [address] | | | - BLOOD BANK | [...] + | [facility] | [address] | [place] | [phone] | | [facility] | | [address] | | | - LABORATORY | | | | + + + + + | [facility] | [address] | [place] | | | [facility] | | [address] | | | - LABORATORY | | [...] + | [facility] | [address] | [place] [facility] | [phone] | | [facility] | | [address] | | | - LABORATORY | | | | + + + + + | [facility] | [address] | [place] | | | [facility] | | [address] | | | - LABORATORY | | [...] + | [facility] | [address] | [place] [facility] | [phone] | | [facility] | | [address] | | | - LABORATORY | | | | + + + + + | [facility] | [address] | [place] | | | [facility] | | [address] | | | - LABORATORY | | [...] 0.59 (L) | 0.60 - 1.30 | [facility] | | | | | mg/dL | [facility] | | | | | | MEDICAL | | | | | | CENTER - | | | | | | LABORATORY | | + + + + + + | eGFR if not | >60Comment: GLOMERULAR | >=60 | [facility] | | | | FILTRATION | mL/min/1.73m2 | [facility] | | | IRAQI | RATE,ESTIMATED | | MEDICAL | | | | mL/min/1.50l0Fcms than | | CENTER - | | [...] + | [facility] | [address] | [place], [place] | [phone] | | [facility] | | [address] | | | - LABORATORY | | | | + + + + + | [facility] | [address] | [place], [place] | | | [facility] | | [address] | | | - LABORATORY | | [...] + + + | UNIT # | [id number] | | [facility] | | | | [...] + | [facility] | [address] | [place] [facility] | | | [facility] | | [address] | | | - BLOOD BANK | [...] + + | Performing | Address | City[facility] | Phone Number | | Organization | | | | + + + + + | [facility] | [address] | [place] | [phone] | | [facility] | | [address] | | | - LABORATORY | | | | + + + + + | [facility] | [address] | [place] | | | [facility] | | [address] | | | - LABORATORY | | [...] | | | | | | [employer] | | | | | [...] + | [facility] | [address] | [place] | [phone] | | [facility] | | [address] | | | - LABORATORY | | | | + + + + + | [facility] | [address] | [place], [place] | | | [facility] | | [address] | | | - LABORATORY | | [...] [address] | [place] [facility] | [phone] | | [facility] | | [address] | | | - LABORATORY | | | | + + + + + | [facility] | [address] | [place] | | | [facility] | | [address] | | | - LABORATORY | | [...] | | | | | | [employer] | | | | | [...] + | [facility] | [address] | [place], [place] | [phone] | | [facility] | | [address] | | | - LABORATORY | | | | + + + + + | [facility] | [address] | [place], [place] | | | [facility] | | [address] | | | - LABORATORY | | [...] + | [facility] | [address] | [place] [facility] | [phone] | | [facility] | | [address] | | | - LABORATORY | | | | + + + + + | [facility] | [address] | [place] [facility] | | | [facility] | | [address] | | | - LABORATORY | | [...] + | [facility] | [address] | [place] | [phone] | | [facility] | | [address] | | | - LABORATORY | | | | + + + + + | [facility] | [address] | [place] | | | [facility] | | [address] | | | - LABORATORY | | [...] | | | | | | [employer] | | | | | [...] + | [facility] | [address] | [place] | [phone] | | [facility] | | [address] | | | - LABORATORY | | | | + + + + + | [facility] | [address] | [place], [place] | | | [facility] | | [address] | | | - LABORATORY | | [...] + | [facility] | [address] | [place] | [phone] | | [facility] | | [address] | | | - LABORATORY | | | | + + + + + | [facility] | [address] | [place] | | | [facility] | | [address] | | | - LABORATORY | | | | + + + + + ECHO Complete (11/03/2013 12:00 PM PDT) + + | Specimen | + + | | + + + + + | Narrative | Performed At | + + + | [facility] ECHOCARDIOGRAM REPORT | | | STUDY [...] Carito Maher MD PhD | | | [facility] 11/03/2013 12:17 Disposal Man: Merlin Dolan, | | | RDMS | | + + + + + | Procedure Note | + + | Ric Maher MD - 11/03/2013 6:59 PM [facility] | | CENTERECHOCARDIOGRAM REPORTSTUDY DATE: 11/03/2013PATIENT NAME: Soumya Daniels: | | 1935MRN: [id number]: Rodolfo Cruz [facility]DIAGNOSIS: Elevated | | troponinA transthoracic echocardiogram [...] PP mmHgLA volume: 54 mLLA index: 28 mL/y4Vmkhyj Inflow DT: | | 284 msIVRT: 88 msValsalva: Not neededPWDTI S wave: 8.0 cm/sPWDTI E wave: 6.8 | | cm/sPWDTI A wave: 14.8 cm/sE/A Ratio: 0.46E/E Ratio: 19.52Signed by: Carito Solorio | | MD Nika PhD FACC 11/03/2013 12:17 Disposal Man: Merlin Dolan RDMS | |Tricuspid valve: normal [...] 11/03/2013 12:17 | | | | | |Disposal Man: Merlin Dolan RDMS | + + Protein [...] + | [facility] | [address] | [place], [place] | [phone] | | [facility] | | [address] | | | - LABORATORY | | | | + + + + + | [facility] | [address] | [place], [place] | | | [facility] | | [address] | | | - LABORATORY | | [...] | 1.015 | | | | | [place], | | | | | | UA, [...] + | [facility] | [address] | [place], [place] | | | [facility] | | [address] | | | - BLOOD BANK | [...] + | MISCELLANEOUS LAB | | | [phone] | + +---------+ + + | MISCELANIOUS LAB | | | [phone] | + +---------+ + + Troponin I [...] | | | | | | [employer] | | | | | [...] + | [facility] | [address] | [place], [place] | [phone] | | [facility] | | [address] | | | - LABORATORY | | | | + + + + + | [facility] | [address] | [place], [place] | | | [facility] | | [address] | | | - LABORATORY | | [...] | 0.66 | 0.60 - 1.30 | [facility] | | | | | mg/dL | [facility] | | | | | | MEDICAL | | | | | | CENTER - | | | | | | LABORATORY | | + + + + + + | eGFR if not | >60Comment: GLOMERULAR | >=60 | [facility] | | | | FILTRATION | mL/min/1.73m2 | [facility] | | | IRAQI | RATE,ESTIMATED | | MEDICAL | | | | mL/min/1.07y7Lyug than | | CENTER - | | [...] + | [facility] | [address] | [place] | [phone] | | [facility] | | [address] | | | - LABORATORY | | | | + + + + + | [facility] | [address] | [place] | | | [facility] | | [address] | | | - LABORATORY | | [...] + | [facility] | [address] | [place], [place] | [phone] | | [facility] | | [address] | | | - LABORATORY | | | | + + + + + | [facility] | [address] | [place], [place] | | | [facility] | | [address] | | | - LABORATORY | | [...] | | +---+---+ + +-------+ +---------+---+---+ | [id number]-[id number]-[id number] | Given | 11/05/19 | 1 spray [...] | | | | | dose on [facility] 11/04/13 at 2300, If | | [...]
--- OUTSIDE RECORDS SUMMARY | ~2019-05-18 | XMS | Encounter Summary ---
Demographics + + + | Address | [address] | | | [place] [address] | + + + | Home Phone [...] | Author | [facility] | | | and [place] | + + + | Organization | [facility] | [...] | | | | | [place] [address] | | + + + + + | Hunter Jcakson | ECON | [place] | | + + + + + | Wes Jackson | ECON | [place], [place] | | + + + + + | Oziel Jackson | ECON | [place], [place] | | + + + + + Care Team Providers + +------+ + | Care Slat Grader Name | Role | Phone | [...] + | 03/01/ | Refill | [facility] | Rodolfo Cruz, | Medication Refill | | 2013 | | MEDICINE [address] | [place] [address] | | | | | [address] | [place] | | | | | [place] [address] | [address] | | | | | [phone] | | | +--------+--------+ + + + [...] | | | | | | [place] [address] | | | | | | [phone] | | | | | | | | +--------+---------+ + + + documented as of this encounter Visit Diagnoses + + | Diagnosis | + + | Back pain - Primary Backache, unspecified | + + documented in this encounter"
--- OUTSIDE RECORDS SUMMARY | ~2019-05-18 | XMS | Encounter Summary ---
Demographics + + + | Address | [address] | | | [place] [address] | + + + | Home Phone [...] Author | [facility] | | | and [place] | + + + | Organization | [facility] | | [...] | | | | | [place] [address] | | + + + + + | Hunter Jackson | ECON | [place] | | + + + + + | Wes Jackson | ECON | [place], [place] | | + + + + + | Oziel Jackson | ECON | [place], [place] | | + + + + + Care Team Providers + +------+ + | Care Manager Of Case Management Name | Role | Phone | [...] | (Primary Dx); | | | | [place], | [place], | Valvular heart | | | | [place] [id number] | [place] [id number] | disease; Essential | | | | [phone] | [phone] | hypertension | | | | | [...] She is in a class I of [employer] functional class . There is [...] this chart may have been created with [employer] voice recognition software. Occasi onal wrong-word or [...] | | | | | | [place] [id number] | | | | | | [phone] | | | | | | | [...]
--- OUTSIDE RECORDS SUMMARY | ~2019-05-18 | XMS | Encounter Summary ---
Demographics + + + | Address | [address] | | | [place] [address] | + + + | Home Phone [...] | [facility] | | | and [place] | + + + | Organization | [facility] [...] | | | | | [place] [address] | | + + + + + | Hunter Jackson | ECON | [place] | | + + + + + | Wes Jackson | ECON | [place], [place] | | + + + + + | Oziel Jackson | ECON | [place], [place] | | + + + + + Care Team Providers + +------+ + | Care Career Guidance Counselor Name | Role | Phone | [...] | | | [address], | [facility], | | | | | [place] [address] | [place] [address] | | | | | [phone] | [phone] | | | | | | | [...] STREETER | | | | | | [address] | | | | | | | | +--------+---------+ + + + | 11/21/ | Office | Cardiology | Yesi, | | | 2019 | Visit | | JOSE ALBERTO Linder [address] | | | | | | [place] | | | | | | [place] [address] | | | | | | [phone] | | | | | | | | +--------+---------+ + + + documented as of this encounter Visit Diagnoses Not on filedocumented in this encounter"
--- OUTSIDE RECORDS SUMMARY | ~2019-05-18 | XMS | Encounter Summary ---
Demographics + + + | Address | [address] | | | [place] [address] | + + + | Home Phone [...] [facility] | | | and [place] | + + + | Organization | [facility] | | [...] | | | | | [place] [address] | | + + + + + | Hunter Jackson | ECON | [place] | | + + + + + | Wes Jackson | ECON | [place], [place] | | + + + + + | Oziel Jackson | ECON | [place], [place] | | + + + + + Care Team Providers + +------+ + | Care Field Service Engineer Name | Role | Phone | [...] | | | | | [place] [address] | [address] | | | | | [phone] | | | +--------+--------+ + + + [...] STREETER | | | | | | [address] | | | | | | | | +--------+---------+ + + + | 11/21/ | Office | Cardiology | Yesi, | | | 2019 | Visit | | JOSE ALBERTO [address]inder [address] | | | | | | [address] [place] | | | | | | [place] [address] | | | | | | [phone] | | | | | | | | +--------+---------+ + + + documented as of this encounter Visit Diagnoses + + | Diagnosis | + + | Pain - Primary Generalized pain | + + documented in this encounter"
--- OUTSIDE RECORDS SUMMARY | ~2019-05-18 | XMS | Encounter Summary ---
Demographics + + + | Address | [address] | | | [place] [address] | [...] | [facility] | | | and [place] | + + + | Organization | [facility] | | [...] | | | | | [place] [address] | | + + + + + | Hunter Jackson | ECON | [place] | | + + + + + | Wes Jackson | ECON | [place], [place] | | + + + + + | Oziel Jackson | ECON | [place], [place] | | + + + + + Care Team Providers + +------+ + | Care Chemistry Technical Officer Name | Role | Phone | [...] + + | 01/26/ | Office | [facility] | Harsha Selby | Chronic low back | | 2015 | Visit | PHYSIATRY [address] | [address] | pain (Primary Dx); | | | | [place], | [address] [place] | 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 For [...] has no apparent deficits with short or marketing analytics lead memory. She has appropriate fund of knowledge [...] ulcers previously with NSAIDS. She has used Blakeslee marta in the past and is still [...] STREETER | | | | | | [address] | | | | | | | | +--------+---------+ + + + | 11/21/ | Office | Cardiology | Yesi, | | | 2019 | Visit | | JOSE ALBERTO Linder [address] | | | | | | [place] | | | | | | [place] [address] | | | | | | [phone] | | | | | | | [...] 723.1 Soumyanito Jackson presents to the | [facility] | | fluoroscopy suite for fluoroscopically guided bilateral L3 and | [facility] | | bilateral L4 medial [...] | [address] | [place] | [phone] | | [facility] | | [address] | | | - IMAGING | | [...]
--- OUTSIDE RECORDS SUMMARY | ~2019-05-18 | XMS | Encounter Summary ---
Demographics + + + | Address | [address] | | | [place] [address] | + + + | Home Phone [...] | Author | [facility] | | | and Ohana | + + + | Organization | [facility] | | | and [place]ana | + + + | Address | Unknown | + + + | Phone | Unavailable | + + + Support + + + + + | Name | Relationship | Address | Phone | + + + + + | Osmin Jackson | ECON | [address] | | | | | [place] [address] | | + + + + + | Hunter Jackson | ECON | [place] | | + + + + + | Wes Jackson | ECON | [place], [place] | | + + + + + | Oziel Jackson | ECON | [place], [place] | | + + + + + Care Team Providers + +------+ + | Care Utility Appraiser Name | Role | Phone | [...] | Ulysses Rios MD | [address] | | | | | right | [address] | [place], | | | | | shoulder | [place] | [place] | | | | | pain | [place], [place] | [address] | | | | | Procedures | [address] | Phone: | | | | | MRI Shoulder | Phone: | [phone] | | | | | Right wo | [phone] | Fax: | | | | | Contrast | Fax: | [phone] | | | | | | [phone] | | +--------+--------+ + + + + [...] | Ulysses Rios MD | [address] | | | | | right | [address] | [place], | | | | | shoulder | [place] | | | | | pain | [place], [place] | [address] | | | | | Procedures | [address] | Phone: | | | | | MRI Shoulder | Phone: | [phone] | | | | | Right wo | [phone] | Fax: | | | | | Contrast | Fax: | [phone] | | | | | | [phone] | | +--------+--------+ + + + + Encounter Details +--------+ + + + + | Date | Type | Department | Care Team | Description | +--------+ + + + + | 09/26/ | Hospital | [facility] | Ulysses Jensen, | Chronic right | | 2017 | Encounter | MED CTR MRI [address] | [address] | shoulder pain | | | | [address] [place], | [place], [place] | | | | | [place] [address] | [address] | | | | | [phone] | | | +--------+ + + + [...] STREETER | | | | | | [address] | | | | | | | | +--------+---------+ + + + | 11/21/ | Office | Cardiology | Yesi, | | | 2019 | Visit | | JOSE ALBERTO Linder [address] | | | | | | [place], | | | | | | [place] [address] | | | | | | [phone] | | | | | | | [...] Axial proton density fat sat, coronal proton [facility] | | density fat sat, sagittal [...] [address] | [place] | [phone] | | [facility] | | [address] | | | - IMAGING | | | | + + + + + documented in this encounter Visit Diagnoses + + | Diagnosis | + + | Chronic right shoulder pain Pain in joint, shoulder region | + + documented in this encounter"
--- OUTSIDE RECORDS SUMMARY | ~2019-05-18 | XMS | Encounter Summary ---
Demographics + + + | Address | [address] | | | [place] [address] | + + + | Home Phone [...] | Author | [facility] | | | and Ohana | + + + | Organization | [facility] | [...] | | | | | [place] [address] | | + + + + + | Hunter Jackson | ECON | [place] | | + + + + + | Wes Jackson | ECON | [place], [place] | | + + + + + | Oziel Jackson | ECON | [place], [place] | | + + + + + Care Team Providers + +------+ + | Care Heel Seat Fitter Name | Role | Phone | [...] | | | | [place] | [address] | | | | | [address] | | | | | | [phone] | | | +--------+---------+ + + + [...] W | | | | | | [place], | | | | | | [place] [address] | | | | | | [phone] | | | | | | | [...]
--- OUTSIDE RECORDS SUMMARY | ~2019-05-18 | XMS | Encounter Summary ---
Demographics + + + | Address | [address] | | | [place] [address] | + + + | Home Phone [...] + | Author | [facility] | | | and Ohana | + + + | Organization | [facility] | | [...] [place] | | | | | [place] [address] | | + + + + + | Hunter Jackson | ECON | [place] | | + + + + + | Wes Jackson | ECON | [place], [place] | | + + + + + | Oziel Jackson | ECON | [place], [place] | | + + + + + Care Team Providers + +------+ + | Care Information Systems Specialist Name | Role | Phone | [...] | | | atherosclero | | [address] | | | | | sis of | | [place], | | | | | unspecified | | [place] [address] | | | | | type of | | Phone: | | | | | vessel, | | [phone] | | | | | [place] | | Fax: | | | | | graft | | [phone] | | | | | Coronary | | | | | | | atherosclero | | | | | | | sis of | | | | | | | unspecified | | | | | | | type of | | | | | | | vessel, | | | | | | | [place] or | | | | | | [...] + + | 10/31/ | Hospital | [facility] | Amna Benavides, | Coronary artery | | 2017 | Encounter | HEART MED CTR | PA-C [address] | disease, angina | | | | ELECTRODIAGNOSTICS | EULOGIO [address] [place], [place] | presence | | | | [address] | [address] | unspecified, | | | | [place] | | unspecified vessel | | | | [address] | | or lesion type, | | | | [phone] | | unspecified whether | | | | | | [place] or | | | | | | [...] | | | | | | [place] [address] | | | | | | [phone] | | | | | | | [...] whether | | | | | | [place] or | | | | | | [...] | TRACEMASTER | | Duration:148 msP Horizontal [place]:24 degP Front [place]:69 degQ Onset:512 | | | msQRSD Interval:84 msQT Interval:424 msQTcB:406 msQTcF:412 msQRS | | | Horizontal [place]:4 degQRS [place]:36 degI-40 Horizontal [place]: degI-40 | | | Front [place]:30 degT-40 Horizontal [place]:-7 degT-40 Front [place]:36 degT | | | Horizontal [place]:60 degT Wave [place]:61 degS-T Horizontal [place]:108 degS-T | | | Front [place]:89 degSeverity:- ABNORMAL ECG -INTERP:SINUS | | | RHYTHMINTERP:CONSIDER LEFT VENTRICULAR HYPERTROPHYElectronically | | | signed by: Ramin PEREZ 11-01-2016 06:15:12 | | |QTcB:406 ms | | |QTcF:412 ms | | |QRS Horizontal [place]:4 deg | | |QRS [place]:36 deg | | |I-40 Horizontal [place]: deg | | |I-40 Front [place]:30 deg | | |T-40 Horizontal [place]:-7 deg | | |T-40 Front [place]:36 deg | | |T Horizontal [place]:60 deg | | |T Wave [place]:61 deg | | |S-T Horizontal [place]:108 deg | | |S-T Front [place]:89 deg | | |Severity:- ABNORMAL ECG - | | |INTERP:SINUS RHYTHM | | |INTERP:CONSIDER LEFT VENTRICULAR HYPERTROPHY | | |Electronically signed by: Ramin PEREZ 11-01-2016 06:15:12 | | + + + + + + + + | Performing | Address | City/State/Zipcode | Phone Number | | Organization | | | | + + + + + | ROSEANN CORREA | [address] | [place] [address] | [phone] | + + + + + documented in this encounter Visit Diagnoses + + | Diagnosis | + + | Coronary artery disease, angina presence unspecified, unspecified vessel or lesion | | type, unspecified whether [place] or transplanted heart | + + | Valvular heart disease Endocarditis, valve unspecified, unspecified cause | + + documented in this encounter"
--- OUTSIDE RECORDS SUMMARY | ~2019-05-18 | XMS | Encounter Summary ---
Demographics + + + | Address | [address] | | | [place] [address] | + + + | Home Phone [...] Author | [facility] | | | and [place] | + + + | Organization | [facility] [...] | | | | | [place] [address] | | + + + + + | Hunter Jackson | ECON | [place] | | + + + + + | Wes Jackson | ECON | [place], [place] | | + + + + + | Oziel Jackson | ECON | [place], [place] | | + + + + + Care Team Providers + +------+ + | Care Coke Inspector Name | Role | Phone | [...] Pulmonary | Rodolfo Reilly MD | [address] | | | | | nodules | [address] | [place], | | | | | Procedures | A[place] | [place] [address] | | | | | CT Chest w | [place], [place] | Phone: | | | | | Contrast | [address] | [phone] | | | | | | Phone: | Fax: | | | | | | [phone] | [phone] | | | | | | Fax: | | | | | | | [phone] | | +--------+--------+ + + + + Encounter Details +--------+ + + + + | Date | Type | Department | Care Team | Description | +--------+ + + + + | 08/18/ | Hospital | [facility] | Rodolfo Cruz, | Pulmonary nodules | | 2015 | Encounter | MED CTR CT [address] | MD [address] | | | | | [place], | [place], [place] | | | | | [place] [address] | [address] | | | | | [phone] | | | +--------+ + + + [...] [place] | | | | | | [address] | | | | | | | | +--------+---------+ + + + | 11/21/ | Office | Cardiology | Yesi, | | | 2019 | Visit | | JOSE ALBERTO Linder [address] | | | | | | [place], | | | | | | [place] [address] | | | | | | [phone] | | | | | | | [...] COMPARISON: CT chest 02/22/2014, CT chest | [facility] | | abdomen pelvis 11/09/2013 TECHNIQUE: Axial images were obtained from | [facility] | | the base of [...] intravenous administration of 70 mL | | [id number] contrast. Multiplanar reformatted images created.RADIATION DOSE: DLP [...] [address] | [place] | [phone] | | [facility] | | [address] | | | - IMAGING | | [...] | | | Starting [facility] 08/18/14 at 1250, For | | | | | | | 1 dose, Cat Scanner | | | | | | + +--------+ +--------+------+------+ +---+---+ | | | +---+---+ documented in this encounter"
--- OUTSIDE RECORDS SUMMARY | ~2019-05-18 | XMS | Encounter Summary ---
Demographics + + + | Address | [address] | | | [place] [address] | + + + | Home Phone [...] Author | [facility] | | | and [place]ana | + + + | Organization | [facility] | [...] | | | | | [place] [address] | | + + + + + | Hunter Jackson | ECON | [place] | | + + + + + | Wes Jackson | ECON | [place], [place] | | + + + + + | Oziel Jackson | ECON | [place], [place] | | + + + + + Care Team Providers + +------+ + | Care Process Control Programmer Name | Role | Phone | [...] [place], | | | | | | [address] | [place] [address] | | | | | | Phone: | Phone: | | | | | | [phone] | [phone] | | | | | | Fax: | Fax: | | | | | | [phone] | [phone] | +--------+ + + + + + [...] + + | 06/16/ | Office | [facility] | Rodolfo Cruz, | Essential | | 2015 | Visit | MEDICINE [facility] | [address] | hypertension | | | | [facility] | [place] | (Primary Dx); | | | | [place] [address] | [address] | Anemia; Depression | | | | [phone] | | with anxiety; | | | [...] our last visit, seen at ER in [place]. 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 in [place]. RTC 3 weeks. lexapro trial. documented in [...] STREETER | | | | | | [address] | | | | | | | | +--------+---------+ + + + | 11/21/ | Office | Cardiology | Yesi, | | | 2019 | Visit | | JOSE ALBERTO Linder [address] | | | | | | [place], | | | | | | [place] [address] | | | | | | [phone] | | | | | | | [...] + | [facility] | [address] | [place] | [phone] | | [facility] | | [address] | | | - LABORATORY | | | | + + + + + | [facility] | [address] | [place], [place] | | | [facility] | | [address] | | | - LABORATORY | | [...] samples are screened | uIU/mL | [facility] | | | | using a [...] [address] | [place] | [phone] | | [facility] | | [address] | | | - LABORATORY | | | | + + + + + | [facility] | [address] | [place] | | | [facility] | | [address] | | | - LABORATORY | | [...] mL/min/1.73m2 | [facility] | | | CHILEAN | RATE,ESTIMATED | | MEDICAL | | | | mL/min/1.69i6Pzjz than | | CENTER - | | [...] | 9.8 | 8.3 - 10.5 | [place] | | | | | mg/dL | [facility] | | | | | | MEDICAL | | | | | | CENTER - | | | | | | LABORATORY | | + + + + + + | Albumin | 4.0 | 3.2 - 5.0 g/dL | [facility] | | | | | | [facility] | | | | | | MEDICAL [...] + | [facility] | [address] | [place] | [phone] | | [facility] | | [address] | | | - LABORATORY | | | | + + + + + | [facility] | [address] | [place] | | | [facility] | | [address] | | | - LABORATORY | | [...] - 1.030 | [facility] | | | [place] | | | [facility] | [...] + | [facility] | [address] | [place] | [phone] | | [facility] | | [address] | | | - LABORATORY | | | | + + + + + | [facility] | [address] | [place], [place] | | | [facility] | | [address] | | | - LABORATORY | | [...] [address] | [place] | [phone] | | [facility] | | [address] | | | - LABORATORY | | | | + + + + + | [facility] | [address] | [place] | | | [facility] | | [address] | | | - LABORATORY | | [...] ST. | [address] | [place] | [phone] | | [facility] | | [address] | | | - LABORATORY | | | | + + + + + | [facility] [facility] | [address] | [place], [place] | | | [facility] | | [address] | | | - LABORATORY | | [...] [address] | [place] | [phone] | | [facility] | | [address] | | | - LABORATORY | | | | + + + + + | [facility] | [address] | [place], [place] | | | [facility] | | [address] | | | - LABORATORY | | [...]
--- OUTSIDE RECORDS SUMMARY | ~2019-05-18 | XMS | Encounter Summary ---
Demographics + + + | Address | [address] | | | [place] [address] | + + + | Home Phone [...] | [facility] | | | and [place]ana | + + + | Organization | [facility] | [...] | | | | | [place] [address] | | + + + + + | Hunter Jackson | ECON | [place] | | + + + + + | Wes Jackson | ECON | [place], [place] | | + + + + + | Oziel Jackson | ECON | [place], [place] | | + + + + + Care Team Providers + +------+ + | Care Belt Fixer Name | Role | Phone | [...] | Lumbosacral | Bal, | [address] | | | | | spondylosis | Harsha Moreno MD | [place], | | | | | without | [address] | [place] | | | | | myelopathy | [facility] | [address] | | | | | Procedures | [place] | Phone: | | | | | [place] INJ | [address] | [phone] | | | | | DX/THER AGNT | Phone: | Fax: | | | | | [place]ERT | [phone] | [phone] | | | | | FACET JOINT, | Fax: | | | | | | LUMBAR/SAC, | [phone] | | | | | | 1ST LEVEL | | | | | | | [place] INJ | | | | | | [...] + + | 03/06/ | Hospital | [facility] | Harsha Selby | Chronic low back | | 2014 | Encounter | MED CTR XRAY [address] | T, [address] | pain; Facet | | | | [address] [place] | [place], [place] | arthritis of lumbar | | | | [place] [address] | [address] | region; DDD | | | | [phone] | | (degenerative disc | | | | | Home Performance Consultant, [place] | disease), lumbar | +--------+ + [...] STREETER | | | | | | [address] | | | | | | | | +--------+---------+ + + + | 11/21/ | Office | Cardiology | Yesi, | | | 2019 | Visit | | JOSE ALBERTO Linder [address] | | | | | | [address] [place], | | | | | | [place] [address] | | | | | | [phone] | | | | | | | [...] Soumya Jackson presents to the | [facility] | | fluoroscopy suite for fluoroscopically guided bilateral L3 and | [facility] | | bilateral L4 medial branch [...] + | [facility] | [address] | [place], [place] | [phone] | | [facility] | | [address] | | | - IMAGING | | [...]
--- OUTSIDE RECORDS SUMMARY | ~2019-05-18 | XMS | Encounter Summary ---
Demographics + + + | Address | [address] | | | [place] [address] | + + + | Home Phone [...] + | Author | [facility] | | | and Ohana | + + + | Organization | [facility] | [...] | | | | | [place] [address] | | + + + + + | Hunter Jackson | ECON | [place] | | + + + + + | Wes Jackson | ECON | [place], [place] | | + + + + + | Oziel Jackson | ECON | [place], [place] | | + + + + + Care Team Providers + +------+ + | Care Solder Deposit Operator Name | Role | Phone | [...] + | 09/25/ | Office | [facility] | Rodolfo Cruz, | 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 I offered her a counselor. flonase trial. I wolauro prince recommend that she relocate to the [facility]. Otherwise continue current medical regimen. documented in [...] | | | | | | [place] [address] | | | | | | [phone] | | | | | | | [...]
--- OUTSIDE RECORDS SUMMARY | ~2019-05-18 | XMS | Encounter Summary ---
Demographics + + + | Address | [address] | | | [place] [address] | + + + | Home Phone [...] | Author | [facility] | | | and Ohana | + + + | Organization | [facility] | | | [...] | | | | | [place] [address] | | + + + + + | Hunter Jackson | ECON | [place] | | + + + + + | Wes Jackson | ECON | [place], [place] | | + + + + + | Oziel Jackson | ECON | [place], [place] | | + + + + + Care Team Providers + +------+ + | Care Automation Clerk Name | Role | Phone | + +------+ + | Rodolfo Cruz MD | PCP | | + +------+ + Encounter Details +--------+ + + + + | Date | Type | Department | Care Team | Description | +--------+ + + + + | 06/16/ | Hospital | [facility] | Rodolfo Cruz, | Fatigue; Essential | | 2014 | Encounter | MED CTR LABORATORY | MD Raya RASHID | hypertension; | | | | [address] [place] | [place], [place] | Pulmonary nodule, | | | | [place], [place] | [address] | right; Pulmonary | | | | [address] | | nodule | | | | [phone] | | | +--------+ + + + [...] STREETER | | | | | | [address] | | | | | | | | +--------+---------+ + + + | 11/21/ | Office | Cardiology | Yesi, | | | 2019 | Visit | | JOSE ALBERTO Linder [address] | | | | | | [address], | | | | | | [place] [address] | | | | | | [phone] | | | | | | | [...] mL/min/1.73m2 | [facility] | | | TAJIK | | | MEDICAL | | | [...] + | [facility] | [address] | [place], [place] | [phone] | | [facility] | | [address] | | | - LABORATORY | | | | + + + + + | [facility] | [address] | [place], [place] | | | [facility] | | [address] | | | - LABORATORY | | [...] + | [facility] | [address] | [place] | [phone] | | [facility] | | [address] | | | - LABORATORY | | | | + + + + + | [facility] | [address] | [place] | | | [facility] | | [address] | | | - LABORATORY | | [...] ST. | [address] | [place], [place] | [phone] | | [facility] | | [address] | | | - LABORATORY | | | | + + + + + | [facility] | [address] | [place], [place] | | | [facility] | | [address] | | | - LABORATORY | | [...] | samples are screened | uIU/mL | [facility] | | | | [...] + | [facility] | [address] | [place] | [phone] | | [facility] | | [address] | | | - LABORATORY | | | | + + + + + | [facility] | [address] | [place] | | | [facility] | | [address] | | | - LABORATORY | | [...] | | | FILTRATION | mL/min/1.73m2 | [facility] | | | TAJIK | RATE,ESTIMATED | | MEDICAL | | | | mL/min/1.96i3Lhmr than | | CENTER - | | [...] | | | | | mg/dL | [facility] | | | | | | MEDICAL | | | | | | CENTER - | | | | | | LABORATORY | | + + + + + + | Albumin | 4.0 | 3.2 - 5.0 g/dL | [facility] | | | | | | [facility] | | | | [...] [address] | [place] | [phone] | | [facility] | | [address] | | | - LABORATORY | | | | + + + + + | [facility] | [address] | [place] | | | [facility] | | [address] | | | - LABORATORY | | [...] - 1.030 | [facility] | | | [place] | | | [facility] | | [...] + | [facility] | [address] | [place], [place] | [phone] | | [facility] | | [address] | | | - LABORATORY | | | | + + + + + | [facility] | [address] | [place], [place] | | | [facility] | | [address] | | | - LABORATORY | | [...] [address] | [place] | [phone] | | [facility] | | [address] | | | - LABORATORY | | | | + + + + + | [facility] | [address] | [place] | | | [facility] | | [address] | | | - LABORATORY | | [...] | | | | | | [facility] | | | | | | [facility] | | | | | [...] + | [facility] [facility] | [address] | [place], [place] | [phone] | | [facility] | | [address] | | | - LABORATORY | | | | + + + + + | [facility] | [address] | [place], [place] | | | [facility] | | [address] | | | - LABORATORY | | [...] + | [facility] | [address] | [place], [place] | [phone] | | [facility] | | [address] | | | - LABORATORY | | | | + + + + + | [facility] [facility] | [address] | [place], [place] | | | [facility] | | [address] | | | - LABORATORY | | [...]
--- OUTSIDE RECORDS SUMMARY | ~2019-05-18 | XMS | Encounter Summary ---
Demographics + + + | Address | [address] | | | [place] [address] | + + + | Home Phone [...] + | Author | [facility] | | | and Ohana | + + + | Organization | [facility] [...] | | | | | [place] [address] | | + + + + + | Hunter Jackson | ECON | [place] | | + + + + + | Wes Jackson | ECON | [place], [place] | | + + + + + | Oziel Jackson | ECON | [place], [place] | | + + + + + Care Team Providers + +------+ + | Care Filbert Grower Name | Role | Phone | + [...] + + | 08/10/ | Telephone | [facility] | Rodolfo Cruz, | Appointment (CT ) | | 2015 | | MEDICINE [address] [place] [address] | MD Raya Z[address]ta [address] | | | | | [place] | [address] | | | | | [place] [id number] | [id number] | | | | | [phone] | | | +--------+ + + + [...] [address] | | | | | | [address] | | | | | | | | +--------+---------+ + + + | 11/21/ | Office | Cardiology | Yesi, | | | 2019 | Visit | | JOSE ALBERTO [address] | | | | | | [place] [address] | | | | | | [place] [address] | | | | | | [phone] | | | | | | | | +--------+---------+ + + + documented as of this encounter Visit Diagnoses Not on filedocumented in this encounter"
--- OUTSIDE RECORDS SUMMARY | ~2019-05-18 | XMS | Encounter Summary ---
Demographics + + + | Address | [address] | | | [place] [address] | + + + | Home Phone [...] | Author | [facility] | | | and [place] | + + + | Organization | [facility] | [...] | | | | | [place] [address] | | + + + + + | Hunter Jackson | ECON | [place] | | + + + + + | Wes Jackson | ECON | [place], [place] | | + + + + + | Oziel Jackson | ECON | [place], [place] | | + + + + + Care Team Providers + +------+ + | Care Landscape Maintenance Internship Name | Role | Phone | [...] | | | [facility] | [place], [place] | | | | | [place] [address] | [address] | | | | | [phone] | | | +--------+ + + + [...] STREETER | | | | | | [id number] | | | | | | | | +--------+---------+ + + + | 11/21/ | Office | Cardiology | Ysei, | | | 2019 | Visit | | JOSE ALBERTO Linder [address] | | | | | | [place] | | | | | | [place] [address] | | | | | | [phone] | | | | | | | [...] [address] | [place] | [phone] | | [facility] | | [address] | | | - LABORATORY | | | | + + + + + documented in this encounter Visit Diagnoses + + | Diagnosis | + + | Pulmonary nodule, right - Primary Solitary pulmonary nodule | + + documented in this encounter"
--- OUTSIDE RECORDS SUMMARY | ~2019-05-18 | XMS | Encounter Summary ---
Demographics + + + | Address | [address] | | | [place] [address] | + + + | Home Phone [...] [facility] | | | and [place] | + + + | Organization | [facility] | | | [...] | | | | | [place] [address] | | + + + + + | Hunter Jackson | ECON | [place] | | + + + + + | Wes Jackson | ECON | [place], [place] | | + + + + + | Oziel Jackson | ECON | [place], [place] | | + + + + + Care Team Providers + +------+ + | Care Plater Hot Dip Name | Role | Phone | + +------+ + | Rodolfo Cruz MD | PCP | | + +------+ + Encounter Details +--------+ + + + + | Date | Type | Department | Care Team | Description | +--------+ + + + + | 03/23/ | Hospital | [facility] | Rodolfo Curz, | Pre-procedure lab | | 2015 | Encounter | [facility] | MD [address] | exam | | | | [address] [place] | [place], [place] | | | | | [place] | [address] | | | | | [address] | | | | | | [phone] | | | +--------+ + + + [...] STREETER | | | | | | [address] | | | | | | | | +--------+---------+ + + + | 11/21/ | Office | Cardiology | Yesi, | | | 2019 | Visit | | JOSE ALBERTO Linder [address] | | | | | | [place] | | | | | | [place] [address] | | | | | | [phone] | | | | | | | [...] [place] | | | | | | [address] | | | | + + + [...] [address] | [place] [address] | [phone] | + + + + + Comprehensive [...] | | | | mg/dL | [facility] | | | | | | [...] | | MEDICAL | | | | mL/min/1.62v6Pxsd than | | CENTER - | | [...] + | [facility] | [address] | [place], [place] | [phone] | | [facility] | | [address] | | | - LABORATORY | | [...] | | | | | [place] [address] | | | | + + + [...] [address] | [place] [address] | [phone] | + + + + + documented in this encounter Visit Diagnoses + + | Diagnosis | + + | Pre-procedure lab exam Pre-procedural laboratory examination | + + documented in this encounter"
--- OUTSIDE RECORDS SUMMARY | ~2019-05-18 | XMS | Encounter Summary ---
Demographics + + + | Address | [address] | | | [place] [address] | + + + | Home Phone [...] | Author | [facility] | | | and [place] | + + + | Organization | [facility] | [...] | | | | | [place] [address] | | + + + + + | Hunter Jackson | ECON | [place] | | + + + + + | Wes Jackson | ECON | [place], [place] | | + + + + + | Oziel Jackson | ECON | [place], [place] | | + + + + + Care Team Providers + +------+ + | Care Switchboard And Control Room Operator Name | Role | Phone | [...] | | | | [place] | [address] | | | | | [address] | | | | | | [phone] | | | +--------+---------+ + + + [...] W | | | | | | [place], | | | | | | [place] [address] | | | | | | [phone] | | | | | | | [...]
--- OUTSIDE RECORDS SUMMARY | ~2019-05-18 | XMS | Encounter Summary ---
Demographics + + + | Address | [address] | | | [place] [address] | + + + | Home Phone [...] + | Author | [facility] | | | and [place] | + + + | Organization | [facility] | | [...] | | | | | [place] [address] | | + + + + + | Hunter Jackson | ECON | [place] | | + + + + + | Wes Jackson | ECON | [place], [place] | | + + + + + | Oziel Jackson | ECON | [place], [place] | | + + + + + Care Team Providers + +------+ + | Care Finishing Supervisor Plastic Sheets Name | Role | Phone | + [...] | 10/11/ | Refill | [facility] | Rodolfo Cruz, | Medication Refill | | 2015 | | MEDICINE [address] | [address] | | | | | [place] | [place] | | | | | [place] [address] | [address] | | | | | [phone] | | | +--------+--------+ + + + [...] STREETER | | | | | | [address] | | | | | | | | +--------+---------+ + + + | 11/21/ | Office | Cardiology | Yesi, | | | 2019 | Visit | | JOSE ALBERTO Linder [address] | | | | | | [place] | | | | | | [place] [address] | | | | | | [phone] | | | | | | | | +--------+---------+ + + + documented as of this encounter Visit Diagnoses + + | Diagnosis | + + | Pain Generalized pain | + + documented in this encounter"
--- OUTSIDE RECORDS SUMMARY | ~2019-05-18 | XMS | Encounter Summary ---
Demographics + + + | Address | [address] | | | [place] [address] | + + + | Home Phone [...] | Author | [facility] | | | and [place] | + + + | Organization | [facility] | [...] | | | | | [place] [address] | | + + + + + | Hunter Jackson | ECON | [place] | | + + + + + | Wes Jackson | ECON | [place], [place] | | + + + + + | Oziel Jackson | ECON | [place], [place] | | + + + + + Care Team Providers + +------+ + | Care Housing Inspectors Name | Role | Phone | + [...] | Rodolfo Reilly MD | [address] | | | | | sprain and | [address] | [place], | | | | | strain, | AVE [place] | [place] | | | | | initial | [place], [place] | [address] | | | | | encounter | [address] | Phone: | | | | | Procedures | Phone: | [phone] | | | | | MRI Thoracic | [phone] | Fax: | | | | | Spine wo | Fax: | [phone] | | | | | Contrast | [phone] | | +--------+--------+ + + + + Reason for Visit + + + | Reason | Comments | + + + | Follow-up | 3 month | + + + Encounter Details +--------+---------+ + + + | Date | Type | Department | Care Team | Description | +--------+---------+ + + + | 10/12/ | Office | [facility] | Rodolfo Cruz, | Thoracic sprain and | | 2013 | Visit | MEDICINE [address] [place] [address] | [address] | strain, initial | | | | [address] [place] | [place] [address] | encounter (Primary | | | | [place] [address] | [address] | Dx) | | | | [phone] | | | +--------+---------+ + + + [...] contraindicated in the elderly but pt had information technology officer friend who recommend ed the medication. We [...] [place] | | | | | | [address] | | | | | | | | +--------+---------+ + + + | 11/21/ | Office | Cardiology | Yesi, | | | 2019 | Visit | | JOSE ALBERTO Linder [address] | | | | | | [place], | | | | | | [place] [address] | | | | | | [phone] | | | | | | | [...] | | | limitations of the large jqujq-gc-[id number] sagittal images provided. | | | Cervical [...] noted at the base of the right X7nwdaibphxl process. A 3.1 cm rounded | | region of heterogeneously decreased Y3uyukcm is noted in the left humeral head [...] for limitations of the large | | lvhql-nt-ajfe sagittal imagesprovided. Cervical neural foramina are not [...] + | MISCELLANEOUS LAB | | | [phone] | + +---------+ + + | MISCELANIOUS LAB | | | [phone] | + +---------+ + + documented in this encounter Visit Diagnoses + + | Diagnosis | + + | Thoracic sprain and strain, initial encounter - Primary | + + documented in this encounter
--- OUTSIDE RECORDS SUMMARY | ~2019-05-18 | XMS | Encounter Summary ---
Demographics + + + | Address | [address] | | | [place] [address] | + + + | Home Phone [...] + | Author | [facility] | | | and [place] | + + + | Organization | [facility] [...] | | | | | [place] [address] | | + + + + + | Hunter Jackson | ECON | [place] | | + + + + + | Wes Jackson | ECON | [place], [place] | | + + + + + | Oziel Jackson | ECON | [place], [place] | | + + + + + Care Team Providers + +------+ + | Care Supervisor Hand Silvering Name | Role | Phone | + [...] + | 09/03/ | Refill | [facility] | Rodolfo Cruz, | Medication Refill | | 2012 | | MEDICINE [address] | [address] | | | | | [place] | [place] [address] | | | | | [place] [address] | [address] | | | | | [phone] | | | +--------+--------+ + + + [...] | | | | | | [place] [address] | | | | | | [phone] | | | | | | | | +--------+---------+ + + + documented as of this encounter Visit Diagnoses + + | Diagnosis | + + | Hypertension - Primary Unspecified essential hypertension | + + documented in this encounter"
--- OUTSIDE RECORDS SUMMARY | ~2019-05-18 | XMS | Encounter Summary ---
Demographics + + + | Address | [address] | | | [place] [address] | + + + | Home Phone [...] | Author | [facility] | | | and [place] | + + + | Organization | [facility] [...] | | | | | [place] [address] | | + + + + + | Hunter Jackson | ECON | [place] | | + + + + + | Wes Jackson | ECON | [place], [place] | | + + + + + | Oziel Jackson | ECON | [place], [place] | | + + + + + Care Team Providers + +------+ + | Care Tare Man Name | Role | Phone | [...] | 07/26/ | Refill | [facility] | Rodolfo Cruz, | Medication Refill | | 2016 | | MEDICINE [address] | [address] | | | | | [place] | [place] [address] | | | | | [place] [address] | [address] | | | | | [phone] | | | +--------+--------+ + + + [...] | | | | | | [place] [address] | | | | | | [phone] | | | | | | | | +--------+---------+ + + + documented as of this encounter Visit Diagnoses + + | Diagnosis | + + | Pain Generalized pain | + + documented in this encounter"
--- OUTSIDE RECORDS SUMMARY | ~2019-05-18 | XMS | Encounter Summary ---
Demographics + + + | Address | [address] | | | [place] [address] | + + + | Home Phone [...] Author | [facility] | | | and [place] | + + + | Organization | [facility] | | [...] | | | | | [place] [address] | | + + + + + | Hunter Jackson | ECON | [place] | | + + + + + | Wes Jackson | ECON | [place], [place] | | + + + + + | Oziel Jackson | ECON | [place], [place] | | + + + + + Care Team Providers + +------+ + | Care Pearl Maker Name | Role | Phone | [...] | 10/28/ | Refill | [facility] | Rodolfo Cruz, | Medication Refill | | 2013 | | MEDICINE [address] | [address] | | | | | [place] | [place] [address] | | | | | [place] [address] | [address] | | | | | [phone] | | | +--------+--------+ + + + [...] | | | | | | [place] [address] | | | | | | [phone] | | | | | | | | +--------+---------+ + + + documented as of this encounter Visit Diagnoses + + | Diagnosis | + + | Thoracic sprain and strain, subsequent encounter - Primary | + + documented in this encounter"
--- OUTSIDE RECORDS SUMMARY | ~2019-05-18 | XMS | Encounter Summary ---
Demographics + + + | Address | [address] | | | [place] [address] | + + + | Home Phone [...] | Author | [facility] | | | and [place] | + + + | Organization | [facility] | [...] [place] | | | | | [place] [address] | | + + + + + | Hunter Jackson | ECON | [place] | | + + + + + | Wes Jackson | ECON | [place], [place] | | + + + + + | Oziel Jackson | ECON | [place], [place] | | + + + + + Care Team Providers + +------+ + | Care Scientific Photographer Name | Role | Phone | + [...] | | | atherosclero | | [address] | | | | | sis of | | [place], | | | | | unspecified | | [place] [address] | | | | | type of | | Phone: | | | | | vessel, | | [phone] | | | | | tetlin or | | Fax: | | | | | graft | | [phone] | | | | | Coronary | | | | | | | atherosclero | | | | | | | sis of | | | | | | | unspecified | | | | | | | type of | | | | | | | vessel, | | | | | | | tetlin or | | | | | | | graft | | | | | | | Procedures | | | | | | | IL ENDOSCOPY | | | | | | | | | | | | | | W/VIDEO-ASST | | | | | | | VEIN | | | | | | | HARVEST,CABG | | | | | | | [place] CABG, | | | | | | | ARTERY-VEIN, | | | | | | | FOUR [place] | | | | | | | CABG, | | | | | | | ARTERIAL, | | | | | | | SINGLE | | | +--------+--------+ + + + + Encounter Details +--------+ + + + + | Date | Type | Department | Care Team | Description | +--------+ + + + + | 10/31/ | Hospital | [facility] | Amna Benavides, | Coronary artery | | 2017 | Encounter | [facility] | PA-C [address] | disease, angina | | | | ELECTRODIAGNOSTICS | [address] [place], [place] | presence | | | | [address] | [address] | unspecified, | | | | [place] | | unspecified vessel | | | | [address] | | or lesion type, | | | | [phone] | | unspecified whether | | | | | | tetlin or | | | | | | [...] | | | | | | [place] [address] | | | | | | [phone] | | | | | | | [...] whether | | | | | | tetlin or | | | | | | [...] | TRACEMASTER | | Duration:148 msP Horizontal Stratford:24 degP Front Stratford:69 degQ Onset:512 | | | msQRSD Interval:84 msQT Interval:424 msQTcB:406 msQTcF:412 msQRS | | | Horizontal Stratford:4 degQRS Stratford:36 degI-40 Horizontal Stratford: degI-40 | | | Front Stratford:30 degT-40 Horizontal Stratford:-7 degT-40 Front Stratford:36 degT | | | Horizontal Stratford:60 degT Wave Stratford:61 degS-T Horizontal Stratford:108 degS-T | | | Front Stratford:89 degSeverity:- ABNORMAL ECG -INTERP:SINUS | | | RHYTHMINTERP:CONSIDER LEFT VENTRICULAR HYPERTROPHYElectronically | | | signed by: Ramin PEREZ 11-01-2016 06:15:12 | | |QTcB:406 ms | | |QTcF:412 ms | | |QRS Horizontal Stratford:4 deg | | |QRS Stratford:36 deg | | |I-40 Horizontal Stratford: deg | | |I-40 Front Stratford:30 deg | | |T-40 Horizontal Stratford:-7 deg | | |T-40 Front Stratford:36 deg | | |T Horizontal Stratford:60 deg | | |T Wave Stratford:61 deg | | |S-T Horizontal Stratford:108 deg | | |S-T Front Stratford:89 deg | | |Severity:- ABNORMAL ECG - | | |INTERP:SINUS RHYTHM | | |INTERP:CONSIDER LEFT VENTRICULAR HYPERTROPHY | | |Electronically signed by: Ramin PEREZ 11-01-2016 06:15:12 | | + + + + + + + + | Performing | Address | City/State/Zipcode | Phone Number | | Organization | | | | + + + + + | [facility] | [address] | [place] [address] | [phone] | + + + + + documented in this encounter Visit Diagnoses + + | Diagnosis | + + | Coronary artery disease, angina presence unspecified, unspecified vessel or lesion | | type, unspecified whether tetlin or transplanted heart | + + | Valvular heart disease Endocarditis, valve unspecified, unspecified cause | + + documented in this encounter"
--- OUTSIDE RECORDS SUMMARY | ~2019-05-18 | XMS | Encounter Summary ---
Demographics + + + | Address | [address] | | | [place] [address] | + + + | Home Phone [...] + | Author | [facility] | | | and [place] | + + + | Organization | [facility] [...] | | | | | [place] [address] | | + + + + + | Hunter Jackson | ECON | [place] | | + + + + + | Wes Jackson | ECON | [place], [place] | | + + + + + | Oziel Jackson | ECON | [place], [place] | | + + + + + Care Team Providers + +------+ + | Care Special Education Curriculum Specialist Name | Role | Phone | + +------+ + | Rodolfo Cruz MD | PCP | | + +------+ + Encounter Details +--------+ + + + + | Date | Type | Department | Care Team | Description | +--------+ + + + + | 11/02/ | Orders Only | [facility] | Buffy Cormier, | Other specified | | 2014 | | MEDICINE Danny Hinson | CB | facundo | | | | [place] | | (Primary Dx) | | | | [place] [address] | | | | | | [phone] | | | +--------+ + + + [...] W | | | | | | [place], | | | | | | [place] [address] | | | | | | [phone] | | | | | | | [...] [address] | [place] | [phone] | | [facility] | | [address] | | | - LABORATORY | | | | + + + + + documented in this encounter Visit Diagnoses + + | Diagnosis | + + | Other specified hypothyroidism - Primary | + + documented in this encounter"
--- OUTSIDE RECORDS SUMMARY | ~2019-05-18 | XMS | Encounter Summary ---
Demographics + + + | Address | [address] | | | [place] [address] | + + + | Home Phone [...] Author | [facility] | | | and [place] | + + + | Organization | [facility] | [...] [place] | | | | | [place] [address] | | + + + + + | Hunter Jackson | ECON | [place] | | + + + + + | Wes Jackson | ECON | [place], [place] | | + + + + + | Oziel Jackson | ECON | [place], [place] | | + + + + + Care Team Providers + +------+ + | Care President [employer] Name | Role | Phone | + [...] due for fasting | | | | [place], | [place], | labs) | | | | [place] [address] | [place] [address] | | | | | [phone] | [phone] | | | | | | | [...] STREETER | | | | | | [address] | | | | | | | | +--------+---------+ + + + | 11/21/ | Office | Cardiology | Yesi, | | | 2020 | Visit | | JOSE ALBERTO Linder [address] | | | | | | [place], | | | | | | [place] [address] | | | | | | [phone] | | | | | | | [...] involving | | | | | | minto coronary | | | | | | artery of minto | | | | | | heart [...] involving | | | | | | minto coronary | | | | | | artery of minto | | | | | | heart [...] involving | | | | | | minto coronary | | | | | | artery of minto | | | | | | heart [...] + + | 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
--- OUTSIDE RECORDS SUMMARY | ~2019-05-18 | XMS | Encounter Summary ---
Demographics + + + | Address | [address] | | | [place] [address] | + + + | Home Phone [...] Author | [facility] | | | and [place] | + + + | Organization | [facility] [...] | | | | | [place] [address] | | + + + + + | Hunter Jackson | ECON | [place] | | + + + + + | Wes Jackson | ECON | [place], [place] | | + + + + + | Oziel Jackson | ECON | [place], [place] | | + + + + + Care Team Providers + +------+ + | Care Nuclear Powerplant Supervisor Name | Role | Phone | [...] + + | 11/04/ | Telephone | [facility] | Rodolfo Cruz, | Other | | 2014 | | MEDICINE [facility] [address] | [address] | | | | | [place] | [place] | | | | | [place] [address] | [address] | | | | | [phone] | | | +--------+ + + + [...] STREETER | | | | | | [address] | | | | | | | | +--------+---------+ + + + | 11/21/ | Office | Cardiology | Yesi, | | | 2019 | Visit | | JOSE ALBERTO Linder [address] | | | | | | [place] | | | | | | [place] [address] | | | | | | [phone] | | | | | | | | +--------+---------+ + + + documented as of this encounter Visit Diagnoses Not on filedocumented in this encounter"
--- OUTSIDE RECORDS SUMMARY | ~2019-05-18 | XMS | Encounter Summary ---
Demographics + + + | Address | [address] | | | [place] [address] | + + + | Home Phone [...] Author | [facility] | | | and [place] | + + + | Organization | [facility] [...] | | | | | [place] [address] | | + + + + + | Hunter Jackson | ECON | [place] | | + + + + + | Wes Jackson | ECON | [place], [place] | | + + + + + | Oziel Jackson | ECON | [place], [place] | | + + + + + Care Team Providers + +------+ + | Care Cmm Operator Name | Role | Phone | [...] | (Primary Dx); | | | | [place], | [place], | Valvular heart | | | | [place] [address] | [place] [address] | disease; Essential | | | | [phone] | [phone] | hypertension | | | | | [...] She is in a class I of [employer] functional class . There is [...] this chart may have been created with [employer] voice recognition software. Occasi onal wrong-word or [...] | | | | | | [place] [address] | | | | | | [phone] | | | | | | | [...]
--- OUTSIDE RECORDS SUMMARY | ~2019-05-18 | XMS | Encounter Summary ---
Demographics + + + | Address | [address] | | | [place] [address] | + + + | Home Phone [...] | Author | [facility] | | | and Ohana | + + + | Organization | [facility] [...] [place] | | | | | [place] [address] | | + + + + + | Hunter Jackson | ECON | [place] | | + + + + + | Wes Jackson | ECON | [place], [place] | | + + + + + | Oziel Jackson | ECON | [place], [place] | | + + + + + Care Team Providers + +------+ + | Care Center Mgr Name | Role | Phone | + [...] | | | atherosclero | | [address] | | | | | sis of | | [place], | | | | | unspecified | | [place] [address] | | | | | type of | | Phone: | | | | | vessel, | | [phone] | | | | | paskenta or | | Fax: | | | | | graft | | [phone] | | | | | Coronary | | | | | | | atherosclero | | | | | | | sis of | | | | | | | unspecified | | | | | | | type of | | | | | | | vessel, | | | | | | | paskenta or | | | | | | [...] [facility] | MD Christina [address] | | | | | OP [address] | [address] [place] | | | | | [place] | [id number] | | | | | [address] | | | | | | [phone] | | | +--------+---------+ + + + [...] might be different f rom the original. [facility] DISCHARGE SUMMARY PATIENT NAME: Jaclyn Jackson : 1935: AGE: 81 y.o. ADMISSION DATE: 11/01/2016 DISCHARGE DATE: 11/06/2016 PRIMARY CARE: FLORA Morgan Patient ID: Jaclyn Jackson [id number] 81 y.o. 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 Suhail Torres [facility]: The patient proceeded to OR [...] at 11:00 am Contact information: [address] [facility] [address] Call Christina Loo MD. Specialty: Cardiothoracic Surgery Why: As needed, If symptoms worsen. Otherwise okay to follow up postop with Dr. Cevallos Contact information: [address] [place] [address] FLORA Morgan. Schedule an appointment as soon as possible for a visit in 2 weeks. Specialty: Physician Point Of Care Technician Why: Primary care follow up after cardiac surgery Contact information: [address], [address] [place] [id number] If patient has any further questions or concerns prior to above, instructed to call our off ice. [phone]. Time spent on discharge planning: less than [...] Mario London PA-C 11/06/2016 13:12 Cardiothoracic Surgery [facility] [address], [address] [place] [address] Portions of this chart may have been created with Offerum voice recognition software. Occasi onal wrong-word or sound-alike substitutions may have occurred due to the inherent doe itations of voice recognition software. Please read the chart carefully and recognize, using context, where these substitutions have occurred. documented in this encounter Discharge Instructions Instructions Dominga Hernandez RN - 11/06/2016Formatting of this note might be different fro humphrey the original. [facility] After [...] ed help. Don t lift anything heavier [id number] for 4-6 weeks. Until approved by your [...] the hospital, begin with short wal ks ([id number]) at home. Go a little longer each [...] symptoms you had prior to surgery Fever [id number] New or spreading redness, swelling, drainage, or warmth at the incision site New or worsening shortness of breath Fainting Weight gain of more [id number] my68vivtc or more juex3vscpaa xm4wkbn(s) New or increasedswelling in your hands, feet, [...] person(s) in the waiting room?: Mary Flores [phone] Patient Signature: Clinician/Truck Trailer Mechanic Signature: documented in this encounter Medications at [...] patient and daughter. 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 Questions answered. Advised of follow up appointme nts and to schedule follow up with PCP. Pt given Mg citrate this am with multiple BM's. To s hower and change and DC home to [place] by car with daughter. Update: Pt showered, dressed. States that she has all belongings. WC transport placed to [place] in doors. Daughter picked up meds at pharmacy. Macrina Gabrer ARNP - 11/06/2016 11:19 AM PDTFormatting of this not e might be different from the original. PATIENT NAME: Jaclyn Jackson : 1935: AGE: 81 y.o. ADMISSION DATE: 11/01/2016 Hospital Day: Hospital Day: 6 Code Status: Full Code Date of Service: 11/06/2016 JOSE ALBERTO [place] CARDIOLOGY DAILY PROGRESS NOTE PRIMARY HOSPITAL PROBLEM: Coronary artery disease involving paskenta coronary artery of paskenta heart with unstable miranda na pectoris (HCC) CHIEF COMPLAINT: CAD ASSESSMENT Anemia Assessment & Plan H/H stable Hyperlipidemia, mixed Assessment & Plan Continue statin * Coronary artery disease involving paskenta coronary artery of paskenta heart with unstable an nayeli pectoris (HCC) Assessment & Plan POD #6 Coronary artery bypass grafting x3 (VERDUZCO-LAD, rSVG-Diag, rSVG-RCA) LVEF 65% prostoperatively. PLAN OK to dc to home follow up in [place] SUBJECTIVE DATA SUBJECTIVE: tired after having BM [...] PA- C - 11/06/2016 9:[address] [facility] Progress Note Pt. Name/Age/: Jaclyn Jackson 81 y.o. 1935 Med. Record Number: [id number] Date of admission: 11/01/2016 Hospital Day: 6 [...] PLAN Principal Problem: Coronary artery disease involving paskenta coronary artery of paskenta heart with unstable an nayeli pectoris Active [...] Home with family Electronically signed by: Mario Lodnon PA-C 11/06/2016 9:10 Cardiothoracic Surgery [facility] [address] [place] [address] Portions of this chart may have been created with Offerum voice recognition software. Occasi onal wrong-word or [...] PRIMARY HOSPITAL PROBLEM: Coronary artery disease involving paskenta coronary artery of paskenta heart with unstable miranda na pectoris (HCC) CHIEF COMPLAINT: Feeling well, no shortness of breath or chest pain ASSESSMENT Anemia Assessment & Plan H/H stable WBC trending down Oral Iron replacement? * Coronary artery disease involving paskenta coronary artery of paskenta heart with unstable an nayeli pectoris (HCC) [...] Portions of this chart were created with Offerum voice recognition software. Occasional wro ng-word or [...] feels quite well Follow-up can be in [place] from the cardiac standpoint They will talk with the surgeon regarding surgical follow-up and if it can be done locally or they need to come here. Suhail Flannery MD [facility] 11/05/2016 16:36 During this hospital visit, I [...] might be differen t from the original. [facility] Daily Progress Note 11/05/2016 Pt. Name/Age/: Jaclyn Jackson 81 y.o. 1935 Med. Record Number: [id number] Date of admission: 11/01/2016 Hospital Day: 5 4 Days Post-Op LVEF: 60-70 Procedure: CABGx3 Date of Surgery: 11/01/16 Surgeon: Dr. Christina Loo MD. Anusha Flores PA-C assisting Interval Events Uneventful night. ASSESSMENT: POD# 4 S/P CABGx3 - Overall doing well, hemodynamics stable, needs BM, on min imal O2, plan home tomorrow to [place] with daughter in law. Neuro: --Hx TIA [...] Dispo: --Plan home with family tomorrow to [place] --Will need to f/u with [facility] in 1 month --Ok per cardiology to f/u with cards in [place] CURRENT PLAN Increase norvasc Change IV to [...] Earlene Bonilla PA-C 11/05/2016 7:30 Cardiothoracic Surgery [facility] [address] [place] [address] I have participated in the [...] PRIMARY HOSPITAL PROBLEM: Coronary artery disease involving paskenta coronary artery of paskenta heart with unstable miranda na pectoris (HCC) CHIEF COMPLAINT: Tired, incisional pain but no chest pain or shortness of breath ASSESSMENT Anemia Assessment & Plan H/H and stable WBC trending down * Coronary artery disease involving paskenta coronary artery of paskenta heart with unstable an nayeli pectoris (HCC) Assessment & Plan 11/01/2016: Coronary artery bypass grafting x3 (VERDUZCO-LAD, rSVG-Diag, rSVG-RCA) LVEF 65% pro stoperatively. -Continue Amlodipine, Aspirin, Statin, Metoprolol -ECG without acute changes PLAN Continue current medications Increase ambulation Follow up with Blacksmith Assistant in [place] SUBJECTIVE DATA REVIEW OF SYSTEMS: CV: negative [...] Portions of this chart were created with Offerum voice recognition software. Occasional wro ng-word or [...] presentation. Followup: She wants her followup in [place] and that is fine by me. I am not sure if surgical fo llowup in [place] is acceptable. Suhail Flannery MD [facility] 11/04/2016 17:32 During this hospital visit, I [...] Jackson DATE OF : 1935 MED RECORD: [id number] Pre-OP Dx Coronary artery disease Hypertension Dyslipidemia history of transient ischemic attack Hypothyroidism mild aortic regurgitation and calcified mitral annulus with calcium nodule in posterior mitral leaflet. Procedure 11/01/16 1. Coronary artery bypass surgery times 3, VERDUZCO to LAD, saphenous vein graft to diagonal, saphenous vein graft to right coronary artery. 2. Endoscopic vein harvest, left greater saphenous vein. SURGEON: Christina Loo MD AMMONIA TECHNICIAN: Anusha Flores PA-C SUBJECTIVE Sitting in chair. [...] 7.46 7.47 PO2ART 113* 118* 116* 156* [id number] 44* 47* 33 35 [id number] 95.2 95.6 95.7 96.8 BEART -- -- [...] this --home ~2d Serene Castillo PA-C [facility] 11/04/2016, 8:02 I have [...] Chronic low back pain 08/24/2014 Clotting disorder ([facility]) 2013 duodenal ulcer COPD (chronic obstructive pulmonary disease) ([facility]) DDD (degenerative disc disease), cervical [...] 08/30/2010 Stenosis of cervical spine 07/25/2016 Stroke ([facility]) Apr 2010 TIA 05/08/2010 Tinea corporis 01/31/2015 UGIB (upper gastrointestinal bleed) 11/14/2013 Valvular heart disease 05/23/2010 Vertigo 09/03/2012 Past Surgical History: Procedure Laterality Date CARDIAC CATHERIZATION N/A 10/16/2016 Procedure: CV LHC; Surgeon: Irina Simms MD; Location: [facility] CV LAB COLONOSCOPY 05/2002; 03/28/10 next due 03/2020 FOOT FRACTURE SURGERY Left 2004 HEMORRHOID SURGERY [id number] Removal lower left nodules 2004 THYROIDECTOMY TONSILLECTOMY AND ADENOIDECTOMY 1955 UPPER GASTROINTESTINAL ENDOSCOPY 11/15/2013 EGD * IP RM: 428 * ; Laterality: N/A; Surgeon: Lauri Garrison MD; Location: [facility] MEDICAL PROCEDURE UNIT UPPER GASTROINTESTINAL ENDOSCOPY 11/04/2013 EGD IP 449; Laterality: N/A; Surgeon: Samm Pandya MD; Location: [facility] MEDICAL P ROCEDURE UNIT reports [...] Procedure Component Value Units Date/Time MRSA NAAT [[id number]] Collected: 10/31/16 1520 Order Status: Completed Lab Status: Final result Updated: 10/31/16 6421 Specimen: Respiratory from Nasal/Nose Specimen Source Nasal [...] Electronically signed by: Flor Lynch Diabetes team, [facility] [phone] Isaias Leyva ARNP - 11/03/2016 10:37 AM PDT PATIENT NAME: Jaclyn Jackson : 1935: AGE: 81 y.o. 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 -Continue Amlodipine, Aspirin, statin, Metoprolol -ECG without acute changes PLAN Continue current medications Patient would like to follow up with cardiology in [place] SUBJECTIVE DATA REVIEW OF SYSTEMS: CV: negative [...] Portions of this chart were created with Offerum voice recognition software. Occasional wro ng-word or [...] halls without problems She has an established [employer] product consultant in [place] up with her. Suhail Flannery MD [facility] 11/03/2016 15:57 During this hospital visit, I personally interviewed and examined the patient. I confirmed the slaughter components of the history and PE. I reviewed the note as written by the midlevel pro vider, and discussed the patient with the provider team.I agree with the impressions and mamta ns and have listed any needed clarifications.Mando Calles MD - 11/03/2016 8:58 AM P DT [facility] CARDIOTHORACIC SURGERY PROGRESS NOTE Pt. Name/Age/: Jaclyn Jackson 81 y.o. 1935 Med. 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 Making good progress. Mando Calles MD [facility], Suhail washington MD - 11/02/2016 11:21 AM PDT [facility]: PATIENT NAME: Jaclyn Jackson : 1935: AGE: 81 y.o. ADMISSION DATE: 11/01/2016 Admitting Provider: Christina Loo MD Primary Provider: FLORA Morgan Hospital Day: Hospital Day: 2 LOS: 1 Code Status: Full Code Blacksmith Assistant: Suhail Flannery MD [facility] DATE OF SERVICE: 11/02/2016 PRIMARY HOSPITAL PROBLEM: CABG for 3 VD from [facility] CHIEF COMPLAINT: Chest pain and nausea ASSESSMENT Discussion: Chest pain and nausea Will reassess with EKG, but seems incisional to me EKG looks fine, minimal change Labs look good, and overall she seems to be doing well CT tube are out, and NSR Anemia Assessment & Plan Actually looks good with 9.9 post op (11.7 prior). 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 Total number o f images: 1. IMPRESSION: Fluoroscopic assisted right jugular venous access with [place]-Michael c atheter. Signed by: Fredy Miranda Xr [...] note and vitals reviewed. Suhail Flannery MD [facility] 11/02/2016 11:21 eeves, Mando willis MD - 11/02/2016 7:46 AM PDT [facility]GRESS NOTE Pt. Name/Age/: Jaclyn Jackson 81 y.o. 1935 [facility]. Record Number: [id number] Date of admission: 11/01/2016 POD 1 Procedure: [...] -Levothyroxine 50 g daily Chronic pain -Takes Baxter 7.5 and Voltaren ointment at home History [...] Electronically signed by: Amna Benavides PA-C Physician Point Of Care Technician [facility] Cardiothoracic Surgery 11/02/2016 7:46 [facility] [...] Sanchez LICSW - 11/01/2016 6:00 PM PDT Type Inspector: Pt resides in [place], [place]. She has Medicare coverage. Will follow progress post op and any other therapy recommendations for discharge planning. Semaj Keith - 11/01/2016 2:22 PM PDTPatie nt arrived to room 260, vitals stable. Sedated. Reported received. Amna Garcia PA-C - 11/01/2016 1:[address] [facility] Immediate Post-Operative Note Subjective Pt. Name/Age/: Jaclyn Jackson 81 y.o. 1935 Med. Record Number: [id number] Date of admission: 11/01/2016 Procedure: Coronary artery [...] Results Component Value Date PHART 7.47 11/01/2016 YWS7BLF 36 11/01/2016 PO2ART 290 11/01/2016 [id number] 13.9 (L) 11/01/2016 CRW1WNI 26.0 11/01/2016 BEART 2.6 (H) 11/01/2016 HGB [...] -Levothyroxine 50 g daily Chronic pain -Takes Baxter 7.5 and Voltaren ointment at home History of TIA -no neuro deficits upon admission History of asthma -uses albuterol at home Electronically signed by: Amna Benavides PA-C 11/01/2016 13:26 Cardiothoracic Surgery [facility] [address] [place], [place] [id number] Portions of this chart may have been created with Offerum voice recognition software. Occasi onal wrong-word or [...] | | | | | | [place] [id number] | | | | | | [phone] | | | | | | | [...] Occurrences starting | | | | | paskenta coronary | 11/04/2016 until | | | | | artery of paskenta | 11/04/2016 | | | | | [...] involving | | | | | | paskenta coronary | | | | | | artery of paskenta | | | | | | heart [...] | | | | | | vessel, paskenta or | | | | | | graft | | + +--------+ + + + +---+--------+ | | | | | Specia | | | l | | | Needs | | | OAR | +---+--------+ + +--------+ + + + [...] whether | | | | | | paskenta or | | | | | | [...] whether | | | | | | paskenta or | | | | | | [...] whether | | | | | | paskenta or | | | | | | [...] whether | | | | | | paskenta or | | | | | | [...] whether | | | | | | paskenta or | | | | | | [...] whether | | | | | | paskenta or | | | | | | [...] whether | | | | | | paskenta or | | | | | | [...] + + | Glucose | 114 (H)Comment: [place] | 65 - 99 mg/dL | [facility] [...] + + | [facility] | [address] | [place] [address] | | | [facility] | | | | | LABORATORY [...] MIRANDA | [address] | [place], [place] [address] | | | [facility] | [...] + | [facility] | [address] | [place] [address] | | | [facility] | | | | | LABORATORY [...] + | [facility] | [address] | [place] [address] | | | [facility] | | | | | LABORATORY [...] + + | OLEGARIO MIRANDA | [address] | [place] [address] | | | [facility] | | | | | LABORATORY [...] + + | Glucose | 115 (H)Comment: [place]ian | 65 - 99 mg/dL | [facility] | | | | [facility] | [...] + | [facility] | [address] | [place] [address] | | | [facility] | | | | | LABORATORY [...] | [address] | [place] [address] | | | [facility] | | | | | [...] + | MARAHLIBERTADGabriel MIRANDA | [address] | [place] [address] | | | [facility] | | | | | LABORATORY [...] + | [facility] | [address] | [place] [address] | | | [facility] | [...] SACRED | [address] | [place] [address] | | | [facility] | | | | | LABORATORY [...] + + | OLEGARIO MIRANDA | [address] | [place] [address] | | | [facility] | | | | | LABORATORY [...] | TRACEMASTER | | Duration:140 msP Horizontal [place]:-43 degP Front [place]:60 degQ Onset:514 | | | msQRSD Interval:78 msQT Interval:384 msQTcB:426 msQTcF:412 msQRS | | | Horizontal [place]:3 degQRS [place]:21 degI-40 Horizontal [place]:-8 degI-40 | | | Front [place]:15 degT-40 Horizontal [place]:-6 degT-40 Front [place]:22 degT | | | Horizontal [place]:44 degT Wave [place]:12 degS-T Horizontal [place]:42 degS-T | | | Front [place]:22 degSeverity:- BORDERLINE ECG -INTERP:SINUS | | | RHYTHMINTERP:PROBABLE LEFT ATRIAL ABNORMALITYElectronically signed by: | | | PATRICK BURKETT 11-09-2016 13:17:14 | | |QTcB:426 ms | | |QTcF:412 ms | | |QRS Horizontal [place]:3 deg | | |QRS [place]:21 deg | | |I-40 Horizontal [place]:-8 deg | | |I-40 Front [place]:15 deg | | |T-40 Horizontal [place]:-6 deg | | |T-40 Front [place]:22 deg | | |T Horizontal [place]:44 deg | | |T Wave [place]:12 deg | | |S-T Horizontal [place]:42 deg | | |S-T Front [place]:22 deg | | |Severity:- BORDERLINE ECG - | | |INTERP:SINUS RHYTHM | | |INTERP:PROBABLE LEFT ATRIAL ABNORMALITY | | |Electronically signed by: PATRICK BURKETT 11-09-2016 13:17:14 | | + + + + + + + + | Performing | Address | City/State/Zipcode | Phone Number | | Organization | | | | + + + + + | ROSEANN CORREA | [address] | [place] [address] | [phone] | + + + + + POC [...] + + | OLEGARIO MIRANDA | [address] | [place] [address] | | | [facility] | | | | | [...] + | [facility] | [address] | [place] [address] | | | [facility] | | | | | LABORATORY [...] | [address] | [place] [address] | | | [facility] | | | | | [...] + | MARAHLIBERTADGabriel MIRANDA | [address] | [place] [address] | | | [facility] | | | | | LABORATORY [...] + | [facility] | [address] | [place] [address] | | | [facility] | [...] SACRED | [address] | [place] [address] | | | [facility] | | | | | LABORATORY [...] SACRED | [address] | [place] [address] | | | [facility] | | | | | LABORATORY [...] + + | OLEGARIO MIRANDA | [address] | [place] [address] | | | [facility] | | | | | LABORATORY [...] + | [facility] | [address] | [place] [address] | | | [facility] | | | | | LABORATORY [...] + + | MARAHLIBERTADGabriel GRACEDRU | [address] | [place] [address] | | | [facility] | | | | | LABORATORY [...] + + | Glucose | 131 (H)Comment: Namibian | 65 - 99 mg/dL | [facility] [...] + + | [facility] | [address] | [place] [address] | | | [facility] | | | | | LABORATORY [...] + + | OLEGARIO MIRANDA | [address] | [place] [address] | | | [facility] | | | | | LABORATORY [...] + + | OLEGARIO MIRANDA | [address] | [place] [address] | | | [facility] | | | | | LABORATORY [...] [address] | [place] [address] | | | [facility] | | | | | LABORATORY [...] [address] | [place] [address] | | | [facility] | | | | | [...] + | MARAHLIBERTADGabriel MIRANDA | [address] | [place] [address] | | | [facility] | | | | | LABORATORY [...] + + | OLEGARIO MIRANDA | [address] | [place] [address] | | | [facility] | | | | | [...] SACRED | [address] | [place] [address] | | | [facility] | | | | | LABORATORY [...] + | OLEGARIO SACRDRU | [address] | [place] [address] | | | [facility] | | | | | LABORATORY [...] + + | OLEGARIO MIRANDA | [address] | [place] [address] | | | [facility] | | | | | [...] [address] | [place] [address] | | | [facility] | | | | | [...] + + | OLEGARIO MIRANDA | [address] | [place] [address] | | | [facility] | | | | | LABORATORY [...] | [address] | [place] [address] | | | [facility] | [...] Patient | | | Name: JACLYN JACKSON: [id number] | | | Study Date: 11/01/2016DOB: 1935 | | | Gender: FemaleAge: 81 yrs | | | Location[facility] | | | Study: intraop CABG,SCA [...] central AI, no , trace TR, trace HI.5. Normal aorta other than mild | | [...] |Ordering Physician: Christina Loo MD | | |Commercial Pest Control Technician: Fredy Almaguer MD | | | | | + + + + + | Procedure Note | + + | [place], Rad Results In - 11/01/2016 2:28 PM PDT | | Adult Intra-Op | | ORA Report | | | | Patient Name: JACLYN JACKSON | | Study Date: 11/01/2016 | | : 1935 Gender: Female | | Age: 81 yrs Location: [facility] MAIN OR P | | [...] central AI, no , trace TR, trace HI. | | 5. Normal aorta other than [...] Ordering Physician: Christina Loo MD | | Commercial Pest Control Technician: Fredy Almaguer MD | + + Potassium [...] + + | OLEGARIO MIRANDA | [address] | [place] [address] | | | [facility] | | | | | LABORATORY [...] + | [facility] | [address] | [place] [address] | | | [facility] | | | | | LABORATORY [...] + + | OLEGARIO MIRANDA | [address] | [place] [address] | | | [facility] | | | | | LABORATORY [...] + | [facility] | [address] | [place] [address] | | | [facility] | [...] + + | OLEGARIO MIRANDA | [address] | [place] [address] | | | [facility] | | | | | LABORATORY [...] + | [facility] | [address] | [place] [address] | | | [facility] | [...] % | [facility] | | | | [id number] | | [facility] | | | | [...] + + | OLEGARIO MIRANDA | [address] | [place] [address] | | | [facility] | | | | | LABORATORY [...] | TRACEMASTER | | Duration:148 msP Horizontal [place]:6 degP Front [place]:72 degQ Onset:512 | | | msQRSD Interval:80 msQT Interval:452 msQTcB:463 msQTcF:459 msQRS | | | Horizontal [place]:16 degQRS [place]:56 degI-40 Horizontal [place]:49 degI-40 | | | Front [place]:45 degT-40 Horizontal [place]:-8 degT-40 Front [place]:59 degT | | | Horizontal [place]:66 degT Wave [place]:64 degS-T Horizontal [place]:66 degS-T | | | Front [place]:38 degSeverity:- NORMAL ECG -INTERP:SINUS | | | RHYTHMElectronically signed by: Ramin PEREZ 11-01-2016 16:20:01 | | |QT Interval:452 ms | | |QTcB:463 ms | | |QTcF:459 ms | | |QRS Horizontal [place]:16 deg | | |QRS [place]:56 deg | | |I-40 Horizontal [place]:49 deg | | |I-40 Front [place]:45 deg | | |T-40 Horizontal [place]:-8 deg | | |T-40 Front [place]:59 deg | | |T Horizontal [place]:66 deg | | |T Wave [place]:64 deg | | |S-T Horizontal [place]:66 deg | | |S-T Front [place]:38 deg | | |Severity:- NORMAL ECG - | | |INTERP:SINUS RHYTHM | | |Electronically signed by: Ramin PEREZ 11-01-2016 16:20:01 | | + + + + + + + + | Performing | Address | City/State/Zipcode | Phone Number | | Organization | | | | + + + + + | [facility] | [address] | [place] [address] | [phone] | + + + + + XR [...] + + | OLEGARIO SACRDRU | [address] | [place] [address] | | | [facility] | | | | | [...] + + | [facility] | [address] | [place] [address] | | | [facility] | [...] + + | OLEGARIO MIRANDA | [address] | [place] [address] | | | [facility] | | | | | LABORATORY [...] + + | [facility] | [address] | [place] [address] | | | [facility] | [...] [address] | [place] [address] | | | [facility] | [...] + + | [facility] | [address] | [place] [address] | | | [facility] | [...] + + | OLEGARIO MIRANDA | [address] | [place] [address] | | | [facility] | | | | | LABORATORY [...] + | [facility] | [address] | [place] [address] | | | [facility] | [...] + + | OLEGARIO MIRANDA | [address] | [place] [address] | | | [facility] | | | | | LABORATORY [...] + + | OLEGARIO MIRANDA | [address] | [place] [address] | | | [facility] | | | | | [...] + + | OLEGARIO MIRANDA | [address] | [place] [address] | | | [facility] | | | | | [...] + + | OLEGARIO MIRANDA | [address] | [place] [address] | | | [facility] | | | | | LABORATORY [...] + + | OLEGARIO MIRANDA | [address] | [place] [address] | | | [facility] | | | | | LABORATORY [...] | | | jugular venous access and Little Elm-Michael catheter and to the area of | | | segmental right lower lobe arteries. Total number of images: 1. | | | IMPRESSION: Fluoroscopic assisted right jugular venous access with | | | Little Elm-Michael catheter. Signed by: Fredy Miranda | | [...] image showing left jugular venous access and Little Elm-Michael | | catheter and to the area of segmental right lower lobe arteries. | | | | Total number of images: 1. | | | | IMPRESSION: | | Fluoroscopic assisted right jugular venous access with Little Elm-Michael | | catheter. | | | | [...] + + | MARAHLIBERTADGabriel MIRANDA | [address] | [place] [address] | | | [facility] | | | | | LABORATORY [...] SACRED | [address] | [place] [address] | | | [facility] | | | | | [...] + + | OLEGARIO MIRANDA | [address] | [place] [address] | | | [facility] | | | | | LABORATORY [...] - 1.030 | [facility] | | | [place] | | | [facility] | | | [...] + + | OLEGARIO MIRANDA | [address] | [place] [address] | | | [facility] | | | | | LABORATORY [...] | | | | | | [facility] | | | | | | [facility] | | | | | | [facility] | | | | | | B[facility] | | | | | | [facility] | | + + + + + + | Rh Type | Positive | | REFERENCE | | | | | | LAB [facility] | | | | | | [facility] | | | | | | [facility] | | | | | | B[facility]OD | | | | | | CENTER | | + + + + + + | Antibody | NegativeComment: Patient | | REFERENCE | | | Screen | is remote crossmatch | | [facility] | | | | eligible | | [...] + + + | Specimen Expiration Date: [id number] | REFERENCE LAB | | | [facility] | | | [facility] | | | [facility] | + + + + + + + + | Performing | Address | City/State/Zipcode | Phone Number | | Organization | | | | + + + + + | [facility] | [address] | [place] [address] | [phone] | | [facility] | | | | | [facility] [...] + + | MARAHFABIAN MIRANDA | [address] | [place] [address] | | | [facility] | | | | | LABORATORY [...] + + | OLEGARIO MIRANDA | [address] | [place] [address] | | | [facility] | | | | | LABORATORY | | | | + + + + + Hemoglobin A1C (10/31/2016 4:09 PM PDT) + + + + + + | Component | Value | Ref Range | Performed | Pathologist | | | | | At | Signature | + + + + + + | Hemoglobin | 5.4Comment: The Namibian | 4.3 - 6.1 % | OLEGARIO [...] [address] | [place] [address] | | | [facility] | [...] + + | MARAHFABIAN MIRANDA | [address] | [place] [address] | | | [facility] | | | | | LABORATORY [...] + + + | Glucose | 93Comment: Namibian | 65 - 99 mg/dL | [facility] [...] + + | OLEGARIO MIRANDA | [address] | [place] [address] | | | [facility] | | | | | LABORATORY [...] | TRACEMASTER | | Duration:148 msP Horizontal [place]:24 degP Front [place]:69 degQ Onset:512 | | | msQRSD Interval:84 msQT Interval:424 msQTcB:406 msQTcF:412 msQRS | | | Horizontal [place]:4 degQRS [place]:36 degI-40 Horizontal [place]: degI-40 | | | Front [place]:30 degT-40 Horizontal [place]:-7 degT-40 Front [place]:36 degT | | | Horizontal [place]:60 degT Wave [place]:61 degS-T Horizontal [place]:108 degS-T | | | Front [place]:89 degSeverity:- ABNORMAL ECG -INTERP:SINUS | | | RHYTHMINTERP:CONSIDER LEFT VENTRICULAR HYPERTROPHYElectronically | | | signed by: Ramin PEREZ 11-01-2016 06:15:12 | | |QTcB:406 ms | | |QTcF:412 ms | | |QRS Horizontal [place]:4 deg | | |QRS [place]:36 deg | | |I-40 Horizontal [place]: deg | | |I-40 Front [place]:30 deg | | |T-40 Horizontal [place]:-7 deg | | |T-40 Front [place]:36 deg | | |T Horizontal [place]:60 deg | | |T Wave [place]:61 deg | | |S-T Horizontal [place]:108 deg | | |S-T Front [place]:89 deg | | |Severity:- ABNORMAL ECG - | | |INTERP:SINUS RHYTHM | | |INTERP:CONSIDER LEFT VENTRICULAR HYPERTROPHY | | |Electronically signed by: Ramin PEREZ 11-01-2016 06:15:12 | | + + + + + + + + | Performing | Address | City/State/Zipcode | Phone Number | | Organization | | | | + + + + + | [facility] | [address] | [place] [address] | [phone] | + + + + + MRSA [...] + + | MARAHLIBERTADGabriel GRACEDRU | [address] | [place] [address] | | | [facility] | | | | | LABORATORY | | | | + + + + + documented in this encounter Visit Diagnoses + + | Diagnosis | + + | Coronary atherosclerosis of unspecified type of vessel, [place] or graft | + + documented in [...]
--- OUTSIDE RECORDS SUMMARY | ~2019-05-18 | XMS | Encounter Summary ---
Demographics + + + | Address | [address] | | | [place] [address] | + + + | Home Phone [...] | | | | | [place] [address] | | + + + + + | Hunter Jackson | ECON | [place] | | + + + + + | Wes Jackson | ECON | [place], [place] | | + + + + + | Oziel Jackson | ECON | [place], [place] | | + + + + + Care Team Providers + +------+ + | Care Winding Department Supervisor Name | Role | Phone | [...] Chronic low | Yany, | [address] | | | | | back pain | Velvet, | [place] Bat[place], | | | | | DDD | PA-C [address] | [place] | | | | | (degenerativ | [address] | [address] | | | | | e disc | [place] | Phone: | | | | | disease), | [address] | [phone] | | | | | lumbar | Phone: | Fax: | | | | | Procedures | [phone] | [phone] | | | | | MRI Lumbar | Fax: | | | | | | Spine wo | [phone] | | | | | | Contrast [...] Chronic low | Yany, | [address] | | | | | back pain | Velvet, | [place], | | | | | DDD | PA-C [address] | [place] | | | | | (degenerativ | [address] | [address] | | | | | e disc | [place] | Phone: | | | | | disease), | [address] | [phone] | | | | | lumbar | Phone: | Fax: | | | | | Procedures | [phone] | [phone] | | | | | MRI Lumbar | Fax: | | | | | | Spine wo | [phone] | | | | | | Contrast | | | | | | | MRI | | | +--------+--------+ + + + + Encounter Details +--------+ + + + + | Date | Type | Department | Care Team | Description | +--------+ + + + + | 01/09/ | Hospital | [facility] | Yany, | Chronic low back | | 2015 | Encounter | [facility] MRI [address] | ANN [address] | pain; DDD | | | | [place], | [facility], | (degenerative disc | | | | [place] [address] | [place] [address] | disease), lumbar | | | | [phone] | [phone] | | | | | | | [...] | | | | | | [place] [address] | | | | | | [phone] | | | | | | | [...] pain, not responding to conservative | [facility] | | treatment COMPARISON: None TECHNIQUE: In the 1.5T scanner [facility] | | multiplanar, multisequence imaging of [...] [address] | [place] | [phone] | | [facility] | | [address] | | | - IMAGING | | [...]
--- OUTSIDE RECORDS SUMMARY | ~2019-05-18 | XMS | Encounter Summary ---
Demographics + + + | Address | [address] | | | [place] [address] | + + + | Home Phone [...] | Author | [facility] | | | and Ohana | + + + | Organization | [facility] [...] | | | | | [place] [address] | | + + + + + | Hunter Jackson | ECON | [place] | | + + + + + | Wes Jackson | ECON | [place], [place] | | + + + + + | Oziel Jackson | ECON | [place], [place] | | + + + + + Care Team Providers + +------+ + | Care Hydraulic Dredge Operator Name | Role | Phone | [...] [place], | | | | | | [address] | [place] [address] | | | | | | Phone: | Phone: | | | | | | [phone] | [phone] | | | | | | Fax: | Fax: | | | | | | [phone] | [phone] | +--------+ + + + + + Encounter Details +--------+---------+ + + + | Date | Type | Department | Care Team | Description | +--------+---------+ + + + | 03/25/ | Office | [facility] | Zion Davis MD | Meniere's disease, | | 2011 | Visit | OTOLARYNGOLOGY [address] | [address] | unspecified (Primary | | | | [address] | [address] [place], | Dx); Mixed hearing | | | | [place] | [place] [address] | loss, unilateral | | | | [address] | [phone] | | | | | [phone] | | | +--------+---------+ + + + [...] MD - 03/25/2012 1:21 PM PSTSee dictation #[id number] signed by José Luis Davis MD at [...] | | | | | | [place] [address] | | | | | | [phone] | | | | | | | | +--------+---------+ + + + documented as of this encounter Visit Diagnoses + + | Diagnosis | + + | Meniere's disease, unspecified - Primary | + + | Mixed hearing loss, unilateral | + + documented in this encounter
--- OUTSIDE RECORDS SUMMARY | ~2019-05-18 | XMS | Encounter Summary ---
Demographics + + + | Address | [address] | | | [place] [address] | + + + | Home Phone [...] + | Author | [facility] | | | and [place]ana | + + + | Organization | [facility] | | | [...] | | | | | [place] [address] | | + + + + + | Hunter Jackson | ECON | [place] | | + + + + + | eWs Jackson | ECON | [place], [place] | | + + + + + | Oziel Jackson | ECON | [place], [place] | | + + + + + Care Team Providers + +------+ + | Care Surgery Consultant Name | Role | Phone | [...] + + | 11/24/ | Telephone | [facility] | Yany, | Other (injections) | | 2014 | | PHYSIATRY [address] | ANN [address] | | | | | [place] Batista, | [facility], | | | | | [place] [address] | [place] [address] | | | | | [phone] | [phone] | | | | | | | [...] | | | | | | [place] [address] | | | | | | [phone] | | | | | | | | +--------+---------+ + + + documented as of this encounter Visit Diagnoses Not on filedocumented in this encounter"
--- OUTSIDE RECORDS SUMMARY | ~2019-05-18 | XMS | Encounter Summary ---
Demographics + + + | Address | [address] | | | [place] [address] | + + + | Home Phone [...] | Author | [facility] | | | and Ohana | + + + | Organization | [facility] | | [...] | | | | | [place] [address] | | + + + + + | Hunter Jackson | ECON | [place] | | + + + + + | Wes Jackson | ECON | [place], [place] | | + + + + + | Oziel Jackson | ECON | [place], [place] | | + + + + + Care Team Providers + +------+ + | Care Business Development Analyst Name | Role | Phone | [...] + + | 05/23/ | Office | [facility] | Yesi, | Hypothyroidism, | | 2016 | Visit | CARDIOLOGY [address] | JOSE ALBERTO Linder [address] | unspecified | | | | [place], | [place], | hypothyroidism type | | | | [place] [address] | [place] [address] | (Primary Dx); | | | | [phone] | [phone] | Hyperlipidemia, | | | | | [...] 5 mg per day and did a [facility] blood pressure log that showed her blood [...] i s in a class I of [place] [employer] functional class. There is no [...] this chart may have been created with [employer] voice recognition software. Occasi onal wrong-word or [...] [place] | | | | | | [id number] | | | | | | | | +--------+---------+ + + + | 11/21/ | Office | Cardiology | Yesi, | | 2019 | Visit | | Niyah, PATIENT SUPPORT ASSISTANT [address] | | | | | | [place], | | | | | | [place] [address] | | | | | | [phone] | | | | | | | [...] + | [address] | [address] | [place] | [phone] | | [facility] | | [address] | | | - LABORATORY | | [...] [address] | [place] | [phone] | | [facility] | | [address] | | | - LABORATORY | | [...]
--- OUTSIDE RECORDS SUMMARY | ~2019-05-18 | XMS | Encounter Summary ---
Demographics + + + | Address | [address] | | | [place] [address] | + + + | Home Phone [...] | Author | [facility] | | | and Ohana | + + + | Organization | [facility] [...] | | | | | [place] [address] | | + + + + + | Hunter Jackson | ECON | [place] | | + + + + + | Wes Jackson | ECON | [place], [place] | | + + + + + | Oziel Jackson | ECON | [place], [place] | | + + + + + Care Team Providers + +------+ + | Care Court Supervisor Name | Role | Phone | [...] | (Screening) (Log | | | | [place], | [place], | from 11/18/14 till | | | | [place] [address] | [place] [address] | 12/02/14) | | | | [phone] | [phone] | | | | | | | [...] [place]REET[place] | | | | | | [address] | | | | | | | | +--------+---------+ + + + | 11/21/ | Office | Cardiology | Yesi, | | | 2020 | Visit | | JOSE ALBERTO [address]inder [address] | | | | | | [place], | | | | | | [place] [address] | | | | | | [phone] | | | | | | | | +--------+---------+ + + + documented as of this encounter Visit Diagnoses Not on filedocumented in this encounter"
--- OUTSIDE RECORDS SUMMARY | ~2019-05-18 | XMS | Encounter Summary ---
Demographics + + + | Address | [address] | | | [place] [address] | + + + | Home Phone [...] + | Author | [facility] | | | and [place] | + + + | Organization | [facility] | | [...] | | | | | [place] [address] | | + + + + + | Hunter Jackson | ECON | [place] | | + + + + + | Wes Jackson | ECON | [place], [place] | | + + + + + | Oziel Jackson | ECON | [place], [place] | | + + + + + Care Team Providers + +------+ + | Care Senior Shipping Clerk Name | Role | Phone | [...] + + | 04/09/ | Office | [facility] | Ulysses Jensen, | [facility] arthritis, | | 2011 | Visit | ORTHOPEDIC SURGERY | [address] | thumb, degenerative | | | | [address] | [facility] [place] | (Primary Dx) | | | | [place] | [address] | | | | | [address] | | | | | | [phone] | | | +--------+---------+ + + + [...] first [facility] sarah nt injection. She has gkrs-pw-mhva arthrosis and is actually doing quite well [...] STREET[place] | | | | | | [id number] | | | | | | | | +--------+---------+ + + + | 11/21/ | Office | Cardiology | Yesi, | | | 2019 | Visit | | JOSE ALBERTO [address] | | | | | | [place] | | | | | | [place] [address] | | | | | | [phone] | | | | | | | | +--------+---------+ + + + documented as of this encounter Visit Diagnoses + + | Diagnosis | + + | [facility] arthritis, thumb, degenerative - Primary Localized osteoarthrosis not specified | | whether primary or secondary, hand | + + documented in this encounter
--- OUTSIDE RECORDS SUMMARY | 2019-05-18 16:50 | XMS ---
PreManage Notification: JACLYN ZURITA Security Inside Sales Supervisor Events No recent Security Events currently on file CRITERIA MET - PDMP CARE PROVIDERS MARCO ANTONIO HAWKINS Physician Binder Roller 08/03/2018-Current PHONE: Unknown Armando has no Care Guidelines for this patient. EJulio VISIT COUNT (12 MO.) 3 EVON Zamora TOTAL 3 NOTE: Visits indicate total known visits. ED/UCC VISIT TRACKING (12 MO.) 05/18/2019 16:48 [facility] [place] [place] TYPE: Emergency COMPLAINT: - HOT, THIRSTY, PAIN ACROSS SHOULDERS AND BACK, SOB 04/12/2019 20:19 [place] [place] [place] TYPE: Emergency COMPLAINT: - BACK PAIN DIAGNOSES: - Prsnl hx of TIA (TIA), and cereb infrc w/o resid deficits - Personal history of nicotine dependence - Other nonmedicinal substance allergy status - Other senior care (current) drug therapy - Allergy status to oth drug/meds/biol subst status - MCFP (current) use of aspirin - Essential (primary) hypertension - Collapsed vertebra, NEC, thoracic region, init - rn long term care (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 - Pain in thoracic spine - Allergy status to penicillin 08/01/2018 15:29 [facility] [place] TYPE: Emergency COMPLAINT: - NOT FEELING HERSELF,WEAKNESS,CHEST DISCOMFORT DIAGNOSES: - Other senior care (current) drug therapy - Viral infection, unspecified - Prsnl hx of TIA (TIA), and cereb infrc w/o resid deficits - Other nonmedicinal substance allergy status - MCFP (current) use of aspirin - Weakness - Essential (primary) hypertension - Allergy status to penicillin - Allergy status to analgesic agent status INPATIENT VISIT TRACKING (12 MO.) No inpatient visits to display in this time frame [email or web address]
--- NOTE | 2019-05-18 18:04 | EKG ---
[facility] [address] [facility] [place], [place] [address] Signed Normal sinus rhythm Nonspecific ST abnormality Abnormal ECG When compared with ECG of 01-AUG-2018 15:35, No significant change was found Confirmed by KAVON DE GUZMAN MD ([id number]) on 05/18/2019 6:04:11 PM Electronically Signed By: KAVON DE GUZMAN MD 05/18/19 1804 PATIENT NAME: JACLYN ZURITA Electrocardiogram DATE OF : 39 PHYSICIAN: KAVON DE GUZMAN MD REPORT #: [id number] REPORT IS CONFIDENTIAL AND NOT TO BE RELEASED WITHOUT AUTHORIZATION
--- NOTE | 2019-05-19 07:44 | EKG ---
[facility] [address] [facility] [place] [address] Signed Normal sinus rhythm Possible Left atrial enlargement ST \T\ T wave abnormality, consider lateral ischemia Abnormal ECG When compared with ECG of 18-MAY-2019 16:55, No significant change was found Confirmed by KAVON DE GUZMAN MD ([id number]) on 05/19/2019 7:44:14 AM Electronically Signed By: KAVON DE GUZMAN MD 05/19/19 0744 PATIENT NAME: JACLYN ZURITA Electrocardiogram DATE OF : 39 PHYSICIAN: KAVON DE GUZMAN MD REPORT #: [id number] REPORT IS CONFIDENTIAL AND NOT TO BE RELEASED WITHOUT AUTHORIZATION
== END 2019-05-18 21:03 | disposition home or self-care (01) ==
LOC: ED 16:47
DX: R07.9 Chest pain, unspecified (principal); I10 Essential (primary) hypertension; Z86.73 Personal history of transient ischemic attack (TIA), and cerebral infarction without residual deficits; Z87.891 Personal history of nicotine dependence; Z88.0 Allergy status to penicillin; Z88.8 Allergy status to other drugs, medicaments and biological substances; Z91.041 Radiographic dye allergy status; Z79.899 Other long term (current) drug therapy; Z79.82 Long term (current) use of aspirin; Z79.891 Long term (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
CPT/HCPCS: 71045; 72070; 80053; 83735; 83880; 84484; 85025; 85379; 93005; 93010; 96374; 96375; 99284-25; J1170; J2405

== ENCOUNTER 2019-06-25 07:42 | Emergency (ER) | payer MEDICARE, OTHER ==
[~2019-06-25] VITALS: Ht 165.1 cm; Wt 87.1 kg
--- OUTSIDE RECORDS SUMMARY | 2019-06-25 07:46 | XMS ---
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 E.Geovanna VISIT COUNT (12 MO.) [address] [place] [address] TOTAL 5 NOTE: Visits indicate total known visits. ED/UCC VISIT TRACKING (12 MO.) 06/25/2019 07:43 EVON Marie TYPE: Emergency COMPLAINT: - CHEST PAIN [facility]2019 21[facility] DIAGNOSES: - Wedge compression fracture of T5-T6 vertebra, init - Other specified abnormal findings of blood chemistry - STEMI - Chest Pain - Chest pain, unspecified - Pain, unspecified 05/18/2019 16:48 EVON Al[place]ran [place] TYPE: Emergency COMPLAINT: - HOT, THIRSTY, PAIN ACROSS SHOULDERS AND BACK, SOB DIAGNOSES: - Prsnl hx of TIA (TIA), and cereb infrc w/o resid deficits - Radiographic dye allergy status - [facility] (current) use of aspirin - Personal history of nicotine dependence - Allergy status to oth drug/meds/biol subst status - Chest pain, unspecified - Allergy status to penicillin - 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 terminologist (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 - Pain in thoracic spine - Essential (primary) hypertension - Other [facility] (current) drug therapy 04/12/2019 20:19 EVON [place] TYPE: Emergency COMPLAINT: - BACK PAIN DIAGNOSES: - Prsnl hx of TIA (TIA), and cereb infrc w/o resid deficits - Personal history of nicotine dependence - Other nonmedicinal substance allergy status - Other terminal computer operator (current) drug therapy - Allergy status to oth drug/meds/biol subst status - [facility] (current) use of aspirin - Essential (primary) hypertension - Collapsed vertebra, NEC, thoracic region, init - medical terminologist (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 - Pain in thoracic spine - Allergy status to penicillin 08/01/2018 15:29 [place]ON [place] TYPE: Emergency COMPLAINT: - NOT FEELING HERSELF,WEAKNESS,CHEST DISCOMFORT DIAGNOSES: - Other [facility] (current) drug therapy - Viral infection, unspecified - Prsnl hx of TIA (TIA), and cereb infrc w/o resid deficits - Other nonmedicinal substance allergy status - medical terminologist (current) use of aspirin - Weakness - Essential (primary) hypertension - Allergy status to penicillin - Allergy status to analgesic agent status INPATIENT VISIT TRACKING (12 MO.) 06/05/2019 21:21 [facility] Intensive Care DIAGNOSES: - Other specified abnormal findings of blood chemistry - Essential (primary) hypertension - Wedge comprsn fx T5-T6 vertebra, subs for fx w routn heal - Pain, unspecified - Chest pain, unspecified - Non-ST elevation (NSTEMI) myocardial infarction - Wedge compression fracture of T5-T6 vertebra, init [email or web address]
[2019-06-25] MEDS ORDERED: UNITHROID88 MCG PO (07:51)
[2019-06-25] MEDS ORDERED: ISOSORBIDE MONO30 MG PO (07:52)
[2019-06-25] MEDS ORDERED: BUSPIRONE HCL5 GM PO (07:52)
[2019-06-25] MEDS ORDERED: OMEPRAZOLE20 MG PO (07:53)
[2019-06-25] MEDS ORDERED: ASPIRIN EC81 MG PO (07:53)
[2019-06-25] MEDS ORDERED: FUROSEMIDE20 MG PO (07:53)
[2019-06-25] MEDS ORDERED: BRILINTA60 MG PO (07:54)
[2019-06-25] MEDS ORDERED: DAILY MULTIPLE1 EACH PO (07:54)
[2019-06-25] MEDS ORDERED: METOPROLOL TART25 MG PO ×2 (07:54→08:03)
[2019-06-25] MEDS ORDERED: LIPITOR40 MG PO (07:56)
[2019-06-25] MEDS ORDERED: NORVASC5 MG PO (07:56)
[2019-06-25] MEDS ORDERED: LISINOPRIL10 MG PO (07:56)
[2019-06-25] MEDS ORDERED: CYMBALTA20 MG PO (07:57)
[2019-06-25] MEDS ORDERED: MELATONIN10 MG PO (07:57)
[2019-06-25] MEDS ORDERED: GABAPENTIN300 MG PO (07:57)
[2019-06-25] MEDS ORDERED: LIDOCAINE1 EAC1 (07:58)
--- NOTE | 2019-06-25 17:10 | EKG ---
[facility] [address] [facility] [place], [place] [address] Signed Sinus bradycardia with premature supraventricular complexes Otherwise normal ECG When compared with ECG of 25-JUN-2019 08:15, (Unconfirmed) No significant change was found Confirmed by MARLO STEVENS MD ([id number]) on 06/25/2019 5:10:15 PM Electronically Signed By: MARLO STEVENS MD 06/25/19 1710 PATIENT NAME: JACLYN ZURITA Electrocardiogram DATE OF : 39 PHYSICIAN: MARLO STEVENS MD REPORT #: [id number] REPORT IS CONFIDENTIAL AND NOT TO BE RELEASED WITHOUT AUTHORIZATION
--- NOTE | 2019-06-25 17:10 | EKG ---
[facility] [address] [facility] [place], [place] [address] Signed Sinus bradycardia with premature supraventricular complexes Possible Left atrial enlargement Anterior infarct , age undetermined ST \T\ T wave abnormality, consider lateral ischemia Abnormal ECG Confirmed by MARLO STEVENS MD ([id number]) on 06/25/2019 5:09:56 PM Electronically Signed By: MARLO STEVENS MD 06/25/19 1710 PATIENT NAME: PARMINDERJACLYN Electrocardiogram DATE OF : 39 PHYSICIAN: MARLO STEVENS MD REPORT #: [id number] REPORT IS CONFIDENTIAL AND NOT TO BE RELEASED WITHOUT AUTHORIZATION
--- NOTE | 2019-06-25 17:10 | EKG ---
[facility] [address] [facility] [place] [address] Signed Sinus bradycardia with premature supraventricular complexes Otherwise normal ECG When compared with ECG of 25-JUN-2019 07:51, (Unconfirmed) T wave inversion less evident in Lateral leads Confirmed by MARLO STEVENS MD ([id number]) on 06/25/2019 5:10:02 PM Electronically Signed By: MARLO STEVENS MD 06/25/19 1710 PATIENT NAME: JACLYN ZURITA Electrocardiogram DATE OF : 39 PHYSICIAN: MARLO STEVENS MD REPORT #: [id number] REPORT IS CONFIDENTIAL AND NOT TO BE RELEASED WITHOUT AUTHORIZATION
== END 2019-06-25 15:08 | disposition short-term general hospital (02) ==
LOC: ED 07:42
DX: I25.110 Atherosclerotic heart disease of native coronary artery with unstable angina pectoris (principal); M25.511 Pain in right shoulder; I10 Essential (primary) hypertension; Z86.73 Personal history of transient ischemic attack (TIA), and cerebral infarction without residual deficits; Z87.891 Personal history of nicotine dependence; Z91.02 Food additives allergy status; Z88.8 Allergy status to other drugs, medicaments and biological substances; Z88.0 Allergy status to penicillin; Z79.899 Other long term (current) drug therapy; Z79.82 Long term (current) use of aspirin
CPT/HCPCS: 80053; 84484; 85025; 93005; 93010; 96374; 99285-25; J2270